=== PATIENT | male | born 1945 | race Caucasian/White ===

== ENCOUNTER 2020-08-20 | Day surgery (SDC) | payer MEDICARE, SELFPAY ==
[2020-08-14 14:54] VITALS: BMI 31.0
--- NOTE | 2020-08-17 10:29 | HO.ANESPROP2 ---
Documented by User: Rosio Alena 08/17/20 10:37 HPI - Anesthesia Eval Consult details Narrative: 75yo M for Upper Endoscopy and Colonoscopy Per caridiac clearance, mod to high risk but no prohibitive risk. Caution with anesthesia, hypotension, and fluid overload. Reviewed with Dr Lorne PULIDO Past Medical History Medical History Aortic stenosis CAD (coronary artery disease) Chronic fatigue DMII (diabetes mellitus, type 2) KOEHLER (dyspnea on exertion) Esophageal varices without bleeding GERD (gastroesophageal reflux disease) HTN (hypertension) IBS (irritable colon syndrome) Iron deficiency anemia On beta kayy at home ANUJA on CPAP Polyneuropathy Prostate cancer Spinal stenosis Family History Family History Father CVD (cardiovascular disease) Past heart attack Mother CVD (cardiovascular disease) Brain cancer Heart problem Daughter Breast cancer Sister Breast cancer Son Alive and well Family/Other Myocardial infarction Liver cancer Surgical History Surgical History History of heart artery stent History of surgery History of surgery History of transurethral resection of prostate Hx of colonoscopy Hx of esophagogastroduodenoscopy Social History Social History Smoking Status: Never smoker Meds Allergies Allergy/AdvReac Type Severity Reaction Status Date / Time lisinopril [From ZESTRIL] Allergy Severe UNABLE TO Verified 07/16/20 16:24 BREATH dextran 40 [DEXTRAN 40] Allergy Intermediate tachycardia Verified 07/16/20 16:24 latex [LATEX] Allergy Mild BLISTERS Verified 07/16/20 16:24 cyclobenzaprine Allergy Unknown Unknown Verified 07/16/20 16:24 [From Flexeril] egg Allergy Unknown unknown Verified 07/16/20 16:24 Iodinated Contrast Media Allergy Unknown UNKNOWN Verified 07/16/20 16:24 [CONTRAST,IV] pregabalin AdvReac Unknown hallucinati Verified 07/16/20 16:24 ons Zanaflex AdvReac Unknown hallucinati Uncoded 04/09/20 00:00 on Home Medications Medication Instructions Recorded Confirmed Type alprazolam 0.5 mg tablet 0.5 mg PO BID PRN 07/16/20 08/14/20 History atorvastatin 80 mg tablet 80 mg PO DAILY 07/16/20 08/14/20 History dulaglutide 0.75 mg/0.5 mL 1.5 mg SUBCUT QWEEK 07/16/20 08/14/20 History subcutaneous pen injector metformin 1,000 mg tablet 1,000 mg PO BID 07/16/20 08/14/20 History metoprolol tartrate 50 mg tablet 75 mg PO BID 07/16/20 08/14/20 History omeprazole 20 mg capsule,delayed 20 mg PO BID 07/16/20 08/14/20 History release sucralfate 1 gram tablet 1 g PO BID 07/16/20 08/14/20 History tamsulosin 0.4 mg capsule 0.4 mg PO DAILY 07/16/20 08/14/20 History torsemide 20 mg tablet 20 mg PO DAILY 07/16/20 08/14/20 History aspirin [Aspir-81] 81 mg PO DAILY 08/14/20 08/14/20 History cyanocobalamin (vitamin B-12) 1,000 mcg PO DAILY 08/14/20 08/14/20 History [Vitamin B-12] gemfibrozil 1 tab PO BID 08/14/20 08/14/20 History ranitidine HCl 150 mg PO BEDTIME 08/14/20 08/14/20 History Exam Exam Date and Time: August 17, 2020 1029 Height,Weight and Vital Signs: Height 5 ft 9 in Weight 95.254 kg Pertinent Lab Results Pertinent Lab Results: Laboratory Tests 04/05/20 05/28/20 12:02 14:02 WBC 3.8 L Hgb 10.7 L Hct 33.1 L Plt Count 92 L Sodium 143 Potassium 4.6 Chloride 109 H BUN 26 H Creatinine 0.97 Narrative Narrative: EKG 04/2020: NSR, 1st degree AV block, mild IVCD as well as increase voltage in the limb leads, poor RWP, LAD, no signficant ST-T wave changes ECHO 07/31/20: mild LVH, EF 60-65%, RV sys function is normal; AV is mod to severe calcified, mild AR, Severe aortic stenosis with peak/mean pressure gradient 67mmHg/ 44mmHg, MOUNIKA=0.9cm; compared with Echo from 04/2020 progressed. Assessment and Plan Assessment Anesthesia Assessment: Chart Reviewed Documented by User: Susanne Nixon 08/20/20 09:37 PMFSH Past Medical History Medical History Aortic stenosis CAD (coronary artery disease) Chronic fatigue DMII (diabetes mellitus, type 2) KOEHLER (dyspnea on exertion) Esophageal varices without bleeding GERD (gastroesophageal reflux disease) HTN (hypertension) IBS (irritable colon syndrome) Iron deficiency anemia On beta kayy at home ANUJA on CPAP Polyneuropathy Prostate cancer Spinal stenosis Family History Family History Father CVD (cardiovascular disease) Past heart attack Mother CVD (cardiovascular disease) Brain cancer Heart problem Daughter Breast cancer Sister Breast cancer Son Alive and well Family/Other Myocardial infarction Liver cancer Family history of problems with anesthesia: No Surgical History Surgical History History of heart artery stent History of surgery History of surgery History of transurethral resection of prostate Hx of colonoscopy Hx of esophagogastroduodenoscopy History of Problems with Anesthesia: No Social History Social History Smoking Status: Never smoker Meds Allergies Allergy/AdvReac Type Severity Reaction Status Date / Time lisinopril [From ZESTRIL] Allergy Severe UNABLE TO Verified 07/16/20 16:24 BREATH dextran 40 [DEXTRAN 40] Allergy Intermediate tachycardia Verified 07/16/20 16:24 latex [LATEX] Allergy Mild BLISTERS Verified 07/16/20 16:24 cyclobenzaprine Allergy Unknown Unknown Verified 07/16/20 16:24 [From Flexeril] egg Allergy Unknown unknown Verified 07/16/20 16:24 Iodinated Contrast Media Allergy Unknown UNKNOWN Verified 07/16/20 16:24 [CONTRAST,IV] pregabalin AdvReac Unknown hallucinati Verified 07/16/20 16:24 ons Zanaflex AdvReac Unknown hallucinati Uncoded 04/09/20 00:00 on Home Medications Medication Instructions Recorded Confirmed Type alprazolam 0.5 mg tablet 0.5 mg PO BID PRN 07/16/20 08/14/20 History atorvastatin 80 mg tablet 80 mg PO DAILY 07/16/20 08/14/20 History dulaglutide 0.75 mg/0.5 mL 1.5 mg SUBCUT QWEEK 07/16/20 08/14/20 History subcutaneous pen injector metformin 1,000 mg tablet 1,000 mg PO BID 07/16/20 08/14/20 History metoprolol tartrate 50 mg tablet 75 mg PO BID 07/16/20 08/14/20 History omeprazole 20 mg capsule,delayed 20 mg PO BID 07/16/20 08/14/20 History release sucralfate 1 gram tablet 1 g PO BID 07/16/20 08/14/20 History tamsulosin 0.4 mg capsule 0.4 mg PO DAILY 07/16/20 08/14/20 History torsemide 20 mg tablet 20 mg PO DAILY 07/16/20 08/14/20 History aspirin [Aspir-81] 81 mg PO DAILY 08/14/20 08/14/20 History cyanocobalamin (vitamin B-12) 1,000 mcg PO DAILY 08/14/20 08/14/20 History [Vitamin B-12] gemfibrozil 1 tab PO BID 08/14/20 08/14/20 History ranitidine HCl 150 mg PO BEDTIME 08/14/20 08/14/20 History Exam Height,Weight and Vital Signs: Vital Signs Temp Pulse Resp BP Pulse Ox 08/20/20 07:57 97.3 F 68 16 158/75 H 97 Lab Results 08/20/20 Range/Units 07:55 POC Glucose 98 (60-115) mg/dL Airway Mallampati Class: II TM Dist: >3cm Neck ROM: Full Heart: RRR+ Systolic murmur Lungs: Wheeze Right upper lung Assessment and Plan Assessment Anesthesia Assessment: Anesthesia Plan Discussed Final Anesthetic Review ASA Class: IV Final Preanesthetic Review: No Changes in Pt Med Stat, Meds/Allgs Chart Reviewed, Consent Obtained/Reviewed and Anes Risks/Benef Reviewed Patient Risk: High Procedure Risk: Low Anesthetic Plan Anesthetic Plan: MAC: Disposition: Extended PACU
[2020-08-20 07:57] VITALS: BP 158/75; PULSE 68; RESP 16; TEMP 36.3; O2SAT 97
[2020-08-20] MEDS: ceFAZolin Sodium/Dextrose,Iso 2 GM/50 ML PIGGYBACK IV (08:15)
[2020-08-20] MEDS: Lactated Ringers 1,000 ML 20 ML IVCONT (08:17)
[2020-08-20 08:26] LABS: Glucose, Whole Blood 98 mg/dL (60-115)
[2020-08-20] MEDS: Albuterol Sulfate (0.083%) 2.5 MG/3 ML VIAL.NEB INHALE (08:34)
--- NOTE | 2020-08-20 08:35 | MHC.SHP ---
Pre-Procedural Eval Section B Chief Complaint: HX POLYPS,ESPOHAGEAL VARICES Present Medications: see Short Stay Collaborative assessment Medical History: Significant History (Prostate cancer. Heart disease. type II diabetes. Hypertension. Spinal stenosis. HLD . Sleep apnea. Anemia. ) History of Previous Operations: Relevant previous surgery/procedure and date(s) (heart surgery gold seed insertion into prostate prostate biopsy RIAN spinal stenosis surgery 08/05/15 colonoscopy-[facility] ? 9 yrs ago EGD @[facility] [place] ) Allergies: Allergies Allergy/AdvReac Type Severity Reaction Status Date / Time lisinopril [From ZESTRIL] Allergy Severe UNABLE TO Verified 07/16/20 16:24 BREATH dextran 40 [DEXTRAN 40] Allergy Intermediate tachycardia Verified 07/16/20 16:24 latex [LATEX] Allergy Mild BLISTERS Verified 07/16/20 16:24 cyclobenzaprine Allergy Unknown Unknown Verified 07/16/20 16:24 [From Flexeril] egg Allergy Unknown unknown Verified 07/16/20 16:24 Iodinated Contrast Media Allergy Unknown UNKNOWN Verified 07/16/20 16:24 [CONTRAST,IV] pregabalin AdvReac Unknown hallucinati Verified 07/16/20 16:24 ons Zanaflex AdvReac Unknown hallucinati Uncoded 04/09/20 00:00 on Review of Systems Sugical H&P ROS: Negative: Constitution, Cardiovascular, Respiratory and Gastrointestinal Exam Surgical H&P Exam: Normal: HEENT, Normal: Extremities and Normal: Abdomen and Significant Findings: Lungs (scattered bilateral wheezing) Plan Diagnosis/Plan: Unchanged Patient has been examined and remains a candidate for the planned procedure
--- NOTE | 2020-08-20 08:35 | W.PM.OPN ---
Operative Note Operative Note Date of Service: 08/20/20 Narrative: Pre-op diagnosis: Colon cancer screening, hx of colon polyps, FU of esophageal varices Procedure: FLEXIBLE TRANSORAL UPPER GASTROINTESTINAL ENDOSCOPY WITH BIOPSIES AND BAND LIGATION AND COLONOSCOPY TILL CECUM WITH BIOPSIES AND POLYPECTOMY WITH A SNARE UPPER ENDOSCOPY Consent: Indications for the procedure and potential complications of bleeding, perforation, reaction to medications and missed diagnosis were discussed with the patient and informed consent was obtained. Instrument: Olympus GIF H 190 mid size upper endoscope Monitoring: Vital signs and clinical assessment, continuous EKG monitoring, Pulse oximetry, Carbon Dioxide monitoring and blood pressure monitoring were done throughout the procedure. Procedure: The patient was placed in the left lateral decubitis position and pre-procedure medications were administered and a bite block was placed. The endoscope was inserted into the mouth and advanced under direct vision to the third part of duodenum. A careful inspection was made as the upper endoscope was withdrawn including a retroflexed examination of the proximal stomach; Findings and interventions are described below. Findings: Larynx: Normal Esophagus: GE junction at 40 cms. Grade 2-3 four column varices from 25 to 40 cms - band ligation x 3 was performed with flattening of the varices. Stomach: Moderate portal gastropathy. A 2 cms nodule in the gastric antrum. Biopsies were obtained. No significant gastric varices and Grade 2 flap valve on retroflexed examination of the cardia. Duodenum: Normal bulb and descending duodenum. COLONOSCOPY PROCEDURE NOTE Consent: Indications for the procedure and potential complications of bleeding, perforation, reaction to medications and missed diagnosis were discussed with the patient and informed consent was obtained. Instrument: Olympus PCF H 190 L variable stiffness pediatric colonoscope Monitoring: Vital signs and clinical assessment, intermittent blood pressure monitoring, continuous EKG monitoring, Pulse oximetry and Carbon Dioxide monitoring were done throughout the procedure. Colon withdrawl time was 32 minutes. Procedure: The patient was placed in the left lateral decubitis position and pre-procedure medications were administered. After a digital rectal examination of the ano-rectum, the video colonoscope was inserted into the rectum and advanced through the colon to the cecum. The colonoscope was slowly withdrawn in a retrograde panoramic fashion and the colon mucosa was carefully examined including a retroflexed view of the rectum. Findings and interventions are described below. Procedure Difficulty: Without difficulty Findings: Terminal Ileum: Not evaluated Cecum: A 4-5 mm sessile polyp removed with a cold biopsy. A 2 cms flat polyp adjacent to the appendicular orifice raised with 5 cc of Orise solution and removed with a hot snare and placed in separate jar labelled cecal polyp # 2. Ascending Colon: Two 8-10 mm sessile polyps removed with a hot snare. A 2 cms sessile polyp in the distal AC removed with a hot snare. Transverse Colon: A 10-12 mm sessile polyp removed with a hot snare Descending Colon: Moderate diverticulosis Sigmoid Colon: Moderate diverticulosis Rectum: Normal Ano-rectum: Moderate internal hemorrhoids Colon preparation: Good after copious irrigation Impression and Post Procedure Diagnosis: Endoscopy Findings: ESOPHAGUS: Grade 2-3 four column varices from 25 to 40 cms - band ligation x 3 was performed with flattening of the varices. STOMACH: Moderate portal gastropathy. A 2 cms nodule in the gastric antrum. Biopsies were obtained. No significant gastric varices and Grade 2 flap valve on retroflexed examination of the cardia. 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 Iron deficiency anemia most likely related to slow GI blood loss from multiple large colon polyps and gastric polyps. Plan: Await pathology results Patient has an appointment on 09/03/20 in the GI [facility] with Arsenio Burns M.D.-. Repeat Colonoscopy interval based on path results - in 1-2 years if polyps are adenomatous. Above findings were reviewed with the patient. Surgeon: Arsenio Burns MD Anesthesia: MAC Estimated blood loss (mL): 0 Pathology: other (A. Gastric nodule, B. Cecal polyp x 1, C. Cecal Polyp # 2, D. AC polyps x 3, E. TC polyp x 1) Condition: stable Disposition: PACU
[2020-08-20 10:26] VITALS: BP 117/55; PULSE 66; RESP 15; TEMP 36.4; O2SAT 99
[2020-08-20 10:42] VITALS: BP 147/81; PULSE 60; RESP 20; O2SAT 94
--- NOTE | 2020-08-20 11:03 | HO.POSTANES ---
Post Anesthesia Evaluation Post Anesthesia Evaluation Vital Signs: Vital Signs Temp Pulse Resp BP Pulse Ox 08/20/20 10:42 60 20 147/81 H 94 08/20/20 10:26 97.6 F 66 15 117/55 L 99 08/20/20 07:57 97.3 F 68 16 158/75 H 97 Anesthesia: Monitored Mental Status: Awake Pain Control: Satisfactory Nausea/Vomiting: None Hydration: Adequate Anesthesia-Related Issues: No Anes. Related Issues
== END 2020-08-20 11:00 | disposition home or self-care (01) ==
LOC: HO.SSS 10-10 08:11
PROVIDERS: PCP Physician Assistant; Visit Provider Internal Medicine Gastroenterology
PROC: (CPT 45385; principal; 2020-08-20 08:30)
DX: Z12.11 Encounter for screening for malignant neoplasm of colon (principal); Z86.010 Personal history of colon polyps; D12.0 Benign neoplasm of cecum; D12.2 Benign neoplasm of ascending colon; D12.3 Benign neoplasm of transverse colon; K57.30 Diverticulosis of large intestine without perforation or abscess without bleeding; K64.8 Other hemorrhoids; K31.7 Polyp of stomach and duodenum; I85.10 Secondary esophageal varices without bleeding; K76.6 Portal hypertension; K31.89 Other diseases of stomach and duodenum; K21.9 Gastro-esophageal reflux disease without esophagitis; E11.21 Type 2 diabetes mellitus with diabetic nephropathy; E11.42 Type 2 diabetes mellitus with diabetic 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; Z79.4 Long term (current) use of insulin; I10 Essential (primary) hypertension; G47.33 Obstructive sleep apnea (adult) (pediatric); D50.9 Iron deficiency anemia, unspecified; Z85.46 Personal history of malignant neoplasm of prostate; Z79.82 Long term (current) use of aspirin; Z79.899 Other long term (current) drug therapy; Z88.8 Allergy status to other drugs, medicaments and biological substances; Z91.040 Latex allergy status
CPT/HCPCS: 45385; 45380; 45381; 43244; 43239; 82947; 88305; 88342; J0690; J1100; J2370; J2405

== ENCOUNTER → 2020-08-27 13:14 | Outpatient (BNV) | payer MEDICARE, SELFPAY | PROVIDERS: PCP Physician Assistant; Visit Provider Internal Medicine | DX: D50.9 Iron deficiency anemia, unspecified (principal); D51.9 Vitamin B12 deficiency anemia, unspecified; N17.9 Acute kidney failure, unspecified | CPT/HCPCS: 99213; 99214; G2211 ==

== ENCOUNTER 2020-08-28 10:19 | Outpatient (REF) | payer MEDICARE, SELFPAY ==
[2020-08-28 11:40] LABS: Basophils Percent Auto 0.7 % (0-2); Eosinophils Absolute Auto 0.2 X10*3/uL (0.0-0.4); Hematocrit 33.5 % (42-52); Hemoglobin 10.6 g/dl (14.0-18.0); Imm Gran Abs Auto 0.02 X10*3/uL (0.00-0.03); Imm Gran Pct Auto 0.4 % (0.0-0.4); Lymphocytes Absolute Auto 0.5 X10*3/uL (1.2-4.9); MANUAL DIFF FLAG SCAN; Mean Corpuscular HGB Conc 31.6 g/dl (31.0-36.0); Mean Corpuscular Hemoglobin 30.3 pg (27.0-33.0); Mean Corpuscular Volume 95.7 fL (80-98); Mean Platelet Volume 11.8 fL (9.4-12.4); Monocytes Absolute Auto 0.5 X10*3/uL (0.1-1.2); Monocytes Percent Auto 11.7 % (2-11); Neutrophils Absolute Auto 3.2 X10*3/uL (2.0-8.3); Neutrophils Percent Auto 72.2 % (45-73); Platelet Count 102 X10*3/uL (160-400); Red Cell Distribution Width 14.5 % (11.0-16.0); SCAN SMEAR FLAG 1; White Blood Count 4.5 X10*3/uL (4.8-10.8)
[2020-08-28 11:54] LABS: Estimated Average Glucose 154 mg/dL; Hemoglobin A1C 151.4069 umol/L
[2020-08-28 12:14] LABS: Iron 49 mcg/dL (45-160); Percent Iron Saturation 11 % (15-50); Total Iron Binding Capacity 457 mcg/dL (228-428); Unsaturated Iron Binding 408 ug/dL
[2020-08-28 12:18] LABS: Alanine Aminotransferase 31 U/L (0-40); Albumin Level 4.1 g/dL (3.5-5.0); Alkaline Phosphatase 109 U/L (39-117); Anion Gap 14 (12-20); Aspartate Amino Transferase 49 U/L (5-37); Bilirubin Total 0.8 mg/dL (0.0-1.0); Blood Urea Nitrogen 23 mg/dL (9-16); Calcium 8.5 mg/dL (8.4-10.2); Carbon Dioxide 27 mmol/L (22-29); Chloride 104 mmol/L (96-108); Cholesterol 141 mg/dL; Estimated Glomerular Filt Rate > 60; Glucose Random 152 mg/dL (60-115); HDL Cholesterol 35 mg/dL; LDL Cholesterol Calculated 74 mg/dl; Potassium 4.3 mmol/l (3.3-5.1); Sodium 141 mmol/L (135-145); Total Protein 7.2 g/dL (6.5-8.0); Triglycerides 161 mg/dL
[2020-08-28 13:09] LABS: SLIDE REVIEW VERIFIED
[2020-08-28 14:41] LABS: TSH reflex Free T4 2.48 mIU/mL (0.32-4.0)
== END 2020-08-28 10:20 | disposition home or self-care (01) ==
LOC: HO.LAB 10:19
PROVIDERS: Internal Medicine; Absent Provider Internal Medicine Cardiovascular Disease; PCP Physician Assistant; Visit Provider Physician Assistant
DX: E11.65 Type 2 diabetes mellitus with hyperglycemia (principal); R06.09 Other forms of dyspnea; E11.42 Type 2 diabetes mellitus with diabetic 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; E11.21 Type 2 diabetes mellitus with diabetic nephropathy; E78.5 Hyperlipidemia, unspecified; I10 Essential (primary) hypertension; Z79.4 Long term (current) use of insulin
CPT/HCPCS: 36415; 80053; 80061; 82947; 83036; 83540; 84443; 85025; 99212

== ENCOUNTER 2020-08-31 13:08 | Outpatient (REF) | payer MEDICARE, SELFPAY | END 2020-08-31 13:09 | disposition home or self-care (01) | LOC: HO.MDS 13:08 | PROVIDERS: PCP Physician Assistant; Visit Provider Internal Medicine | DX: D50.9 Iron deficiency anemia, unspecified (principal) | CPT/HCPCS: 96365; J2916 ==

== ENCOUNTER → 2020-09-03 11:50 | Outpatient (BNVA) | payer MEDICARE, SELFPAY | PROVIDERS: PCP Physician Assistant; Visit Provider Internal Medicine Gastroenterology | DX: Z13.89 Encounter for screening for other disorder (principal) | CPT/HCPCS: Q3014 ==

== ENCOUNTER 2020-09-04 | Outpatient (REF) | payer MEDICARE, SELFPAY | END 2020-09-04 00:01 | disposition home or self-care (01) | LOC: HO.MDS | PROVIDERS: PCP Physician Assistant; Visit Provider Internal Medicine | DX: D50.9 Iron deficiency anemia, unspecified (principal) | CPT/HCPCS: 96365; J2916 ==

== ENCOUNTER 2020-09-04 12:56 | Outpatient (REF) | payer MEDICARE, SELFPAY | END 2020-09-04 12:57 | disposition home or self-care (01) | LOC: HO.MDS 12:56 | PROVIDERS: PCP Physician Assistant; Visit Provider Internal Medicine | DX: D50.9 Iron deficiency anemia, unspecified (principal) | CPT/HCPCS: 96365 ==

== ENCOUNTER 2020-09-11 12:49 | Outpatient (REF) | payer MEDICARE, SELFPAY | END 2020-09-11 12:50 | disposition home or self-care (01) | LOC: HO.MDS 12:49 | PROVIDERS: PCP Physician Assistant; Visit Provider Internal Medicine | DX: D50.9 Iron deficiency anemia, unspecified (principal) | CPT/HCPCS: 96365; J2916 ==

== ENCOUNTER 2020-09-19 13:21 | Outpatient (REF) | payer MEDICARE, SELFPAY ==
--- NOTE | 2020-09-19 13:25 | US_ITS ---
EXAMINATION: US ABDOMEN LIMITED CLINICAL INFORMATION: Unspecified cirrhosis of liver. COMPARISON: [facility] 03/14/2020. MRI abdomen 01/12/2020. Ultrasound abdomen complete 12/27/2019 and 05/09/2019. CT abdomen and pelvis 05/20/2017. TECHNIQUE: Real-time imaging of the right upper quadrant abdominal viscera. FINDINGS: PANCREAS: The head and the body of the pancreas is homogeneous in echotexture. The tail is not well visualized. LIVER: The liver is diffusely heterogeneous. Previously ultrasound seen hypoechoic lesion left lobe is not visualized at this time. It is not visualized on the previous MRI abdomen either. No focal hepatic lesion. There is no intrahepatic biliary duct dilatation seen. GALLBLADDER: Gallbladder wall measures 0.6 cm The gallbladder is physiologically distended. Multiple echogenic shadowing mobile gallstones are present. No evidence of gallbladder wall thickening or pericholecystic fluid. COMMON BILE DUCT: Normal in caliber measuring 0.4 cm in diameter. RIGHT KIDNEY: There is an echogenic foci upper pole measuring 0.7 x 0.6 x 0.6 cm, question small AML. Small cysts in the upper pole right kidney is not visualized at this time. No hydronephrosis. No renal calculi or focal parenchymal lesions. The kidney measures 12.9 cm in maximum dimension. FREE FLUID: None. US/US abdomen limited IMPRESSION: 1. Cholelithiasis without wall thickening. 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 3. Diffuse hepatic steatosis without any focal lesion seen. Previously visualized left hepatic lobe lesion was not seen on the previous MRI or today's exam.
== END 2020-09-19 13:22 | disposition home or self-care (01) ==
LOC: HO.US 13:21
PROVIDERS: Visit Provider Internal Medicine Gastroenterology
DX: Z13.89 Encounter for screening for other disorder (principal)
CPT/HCPCS: 76705

== ENCOUNTER 2020-09-19 14:30 | Outpatient (REF) | payer MEDICARE, SELFPAY | END 2020-09-19 14:31 | disposition home or self-care (01) | LOC: HO.MDS 14:30 | PROVIDERS: PCP Physician Assistant; Visit Provider Internal Medicine | DX: D50.9 Iron deficiency anemia, unspecified (principal) | CPT/HCPCS: 76705; 96365 ==

== ENCOUNTER 2020-09-26 12:33 | Outpatient (REF) | payer MEDICARE, SELFPAY ==
[2020-09-26 16:17] LABS: Prostate Specific Antigen < 0.05 ng/mL (<0.05-4.0)
== END 2020-09-26 12:34 | disposition home or self-care (01) ==
LOC: HO.LAB 12:33
PROVIDERS: PCP Physician Assistant; Visit Provider Urology
DX: Z13.89 Encounter for screening for other disorder (principal)
CPT/HCPCS: 36415; 84153

== ENCOUNTER 2020-09-26 12:59 | Outpatient (REF) | payer MEDICARE, SELFPAY | END 2020-09-26 13:00 | disposition home or self-care (01) | LOC: HO.MDS 12:59 | PROVIDERS: PCP Physician Assistant; Visit Provider Internal Medicine | DX: D50.9 Iron deficiency anemia, unspecified (principal) | CPT/HCPCS: 36415; 84153; 96365; J2916 ==

== ENCOUNTER 2020-10-03 12:52 | Outpatient (REF) | payer MEDICARE, SELFPAY | END 2020-10-03 12:53 | disposition home or self-care (01) | LOC: HO.MDS 12:52 | PROVIDERS: PCP Physician Assistant; Visit Provider Internal Medicine | DX: D50.9 Iron deficiency anemia, unspecified (principal) | CPT/HCPCS: 96365; J2916 ==

== ENCOUNTER 2020-10-10 12:50 | Outpatient (REF) | payer MEDICARE, SELFPAY | END 2020-10-10 12:51 | disposition home or self-care (01) | LOC: HO.MDS 12:50 | PROVIDERS: PCP Physician Assistant; Visit Provider Internal Medicine | DX: D50.9 Iron deficiency anemia, unspecified (principal) | CPT/HCPCS: 96365; J2916 ==

== ENCOUNTER 2020-10-17 | Outpatient (REF) | payer MEDICARE, SELFPAY | END 2020-10-17 00:01 | disposition home or self-care (01) | LOC: HO.VC | PROVIDERS: Visit Provider Internal Medicine | DX: Z23 Encounter for immunization (principal) | CPT/HCPCS: 0011A ==

== ENCOUNTER 2020-10-18 13:01 | Outpatient (REF) | payer MEDICARE, SELFPAY | END 2020-10-18 13:02 | disposition home or self-care (01) | LOC: HO.MDS 13:01 | PROVIDERS: PCP Physician Assistant; Visit Provider Internal Medicine | DX: D50.9 Iron deficiency anemia, unspecified (principal) | CPT/HCPCS: 96365; J2916 ==

== ENCOUNTER 2020-10-24 12:58 | Outpatient (REF) | payer MEDICARE, SELFPAY | END 2020-10-24 12:59 | disposition home or self-care (01) | LOC: HO.MDS 12:58 | PROVIDERS: PCP Physician Assistant; Visit Provider Internal Medicine | DX: D50.9 Iron deficiency anemia, unspecified (principal) | CPT/HCPCS: 96365; J2916 ==

== ENCOUNTER 2020-11-14 | Outpatient (REF) | payer MEDICARE, SELFPAY | END 2020-11-14 00:01 | disposition home or self-care (01) | LOC: HO.VC | PROVIDERS: Visit Provider Internal Medicine | DX: Z23 Encounter for immunization (principal) | CPT/HCPCS: 0012A ==

== ENCOUNTER → 2020-12-26 12:48 | Outpatient (BNVA) | payer MEDICARE, SELFPAY | PROVIDERS: PCP Physician Assistant; Visit Provider Internal Medicine Endocrinology, Diabetes & Metabolism | DX: E11.65 Type 2 diabetes mellitus with hyperglycemia (principal); E11.42 Type 2 diabetes mellitus with diabetic 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; E11.21 Type 2 diabetes mellitus with diabetic nephropathy; Z79.4 Long term (current) use of insulin; E78.5 Hyperlipidemia, unspecified; I10 Essential (primary) hypertension | CPT/HCPCS: 82947; 99212 ==

== ENCOUNTER → 2021-01-21 14:36 | Outpatient (BNVA) | payer MEDICARE, SELFPAY | PROVIDERS: Referring Provider Urology; Visit Provider Internal Medicine Gastroenterology | DX: K74.60 Unspecified cirrhosis of liver (principal); E53.8 Deficiency of other specified B group vitamins; K31.7 Polyp of stomach and duodenum; I85.10 Secondary esophageal varices without bleeding; K76.6 Portal hypertension; K31.89 Other diseases of stomach and duodenum; D36.9 Benign neoplasm, unspecified site; K57.90 Diverticulosis of intestine, part unspecified, without perforation or abscess without bleeding; K64.8 Other hemorrhoids; K62.7 Radiation proctitis; K21.9 Gastro-esophageal reflux disease without esophagitis; Z79.899 Other long term (current) drug therapy | CPT/HCPCS: 99212 ==

== ENCOUNTER 2021-01-25 10:35 | Outpatient (REF) | payer MEDICARE, SELFPAY ==
[2021-01-25 12:17] LABS: Hematocrit 31.6 % (42-52); Mean Corpuscular HGB Conc 31.6 g/dl (31.0-36.0); Mean Corpuscular Hemoglobin 30.7 pg (27.0-33.0); Mean Corpuscular Volume 96.9 fL (80-98); Mean Platelet Volume 11.9 fL (9.4-12.4); Red Blood Count 3.26 X10*6/uL (4.60-5.80); Red Cell Distribution Width 15.4 % (11.0-16.0); White Blood Count 3.5 X10*3/uL (4.8-10.8)
[2021-01-25 12:21] LABS: Platelet Count 90 X10*3/uL (160-400)
[2021-01-25 12:22] LABS: INTERNATIONAL NORM RATIO 1.2 (0.9-1.1); Prothrombin Time 13.7 SEC (10.8-13.0)
[2021-01-25 12:46] LABS: Estimated Average Glucose 154 mg/dL; Hemoglobin A1C 140.2528 umol/L
[2021-01-25 12:49] LABS: Alanine Aminotransferase 32 U/L (0-40); Albumin Level 3.9 g/dL (3.5-5.0); Alkaline Phosphatase 148 U/L (39-117); Anion Gap 15 (12-20); Aspartate Amino Transferase 35 U/L (5-37); Bilirubin Total 0.9 mg/dL (0.0-1.0); Blood Urea Nitrogen 25 mg/dL (9-16); Calcium 8.9 mg/dL (8.4-10.2); Carbon Dioxide 27 mmol/L (22-29); Chloride 104 mmol/L (96-108); Cholesterol 152 mg/dL; Estimated Glomerular Filt Rate > 60; Glucose Random 140 mg/dL (60-115); HDL Cholesterol 41 mg/dL; LDL Cholesterol Calculated 71 mg/dl; Potassium 4.1 mmol/L (3.3-5.1); Sodium 142 mmol/L (135-145); Total Protein 6.9 g/dL (6.5-8.0); Triglycerides 203 mg/dL
[2021-01-25 13:09] LABS: Vitamin B12 727 pg/mL (200-900)
[2021-01-25 13:20] LABS: Creatinine Urine 58.58 mg/dL; Microalbum/Creatinine Ratio Ur 25.6 ug/mg cr
[2021-01-26 16:57] LABS: LDL Cholesterol Direct 65 mg/dL (<100)
== END 2021-01-25 10:36 | disposition home or self-care (01) ==
LOC: HO.LAB 10:35
PROVIDERS: Internal Medicine Gastroenterology; Absent Provider Internal Medicine Endocrinology, Diabetes & Metabolism; PCP Physician Assistant; Visit Provider Internal Medicine Cardiovascular Disease
DX: R06.09 Other forms of dyspnea (principal); E11.65 Type 2 diabetes mellitus with hyperglycemia; K74.60 Unspecified cirrhosis of liver
CPT/HCPCS: 36415; 80053; 80061; 82043; 82607; 83036; 83721; 85027; 85610

== ENCOUNTER 2021-02-04 06:24 | Day surgery (SDC) | payer MEDICARE, SELFPAY ==
[2021-01-28 14:58] VITALS: BMI 31.4
--- NOTE | 2021-01-31 08:39 | MHC.SHP ---
Pre-Procedural Eval Section A The patient is an INPATIENT: No The History & Physical has been completed within 30 days and I have reviewed it.: Yes Section B Chief Complaint: Cataract Left Eye Allergies: Allergies Allergy/AdvReac Type Severity Reaction Status Date / Time lisinopril [From ZESTRIL] Allergy Severe UNABLE TO Verified 01/30/21 14:52 BREATH dextran 40 [DEXTRAN 40] Allergy Intermediate tachycardia Verified 01/30/21 14:52 latex [LATEX] Allergy Mild BLISTERS Verified 01/30/21 14:52 cyclobenzaprine Allergy Unknown Unknown Verified 01/30/21 14:52 [From Flexeril] egg Allergy Unknown unknown Verified 01/30/21 14:52 Iodinated Contrast Media Allergy Unknown UNKNOWN Verified 01/30/21 14:52 [CONTRAST,IV] tizanidine [From Zanaflex] Allergy Unknown Hallucinati Verified 01/30/21 14:52 ons pregabalin AdvReac Unknown hallucinati Verified 01/30/21 14:52 ons Plan Diagnosis/Plan: Unchanged I have reviewed the history and physical and performed a pertinent physical examination on my patient. No changes have occurred unless specified.
--- NOTE | 2021-02-01 09:16 | HO.ANESPROP2 ---
Documented by User: Rosio Alena 02/01/21 09:18 HPI - Anesthesia Eval Consult details Narrative: 75yo M for Left Cataract Extraction IOL Insertion PCP cleared No prev cataract on record [facility] Active Problems Active Problems: All Active Problems (Updated 01/30/21 @ 15:08 by Roberto Carlos Cisneros PA-C) BPH (benign prostatic hyperplasia) (Acute) Cataract (Acute) Pre-op evaluation (Acute) Need for pneumococcal vaccination (Acute) Esophageal varices in cirrhosis (Acute) Portal hypertensive gastropathy (Acute) Adenomatous polyps (Acute) Diverticulosis (Acute) Internal hemorrhoids (Acute) Radiation proctitis (Acute) Anemia (Chronic) Multiple gastric polyps (Acute) Vitamin B12 deficiency (Acute) Cirrhosis of liver without ascites (Acute) CAD (coronary artery disease) (Acute) Hypertension (Acute) Dyslipidemia (Acute) Diabetic nephropathy associated with type 2 diabetes mellitus (Acute) Diabetic 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 associated with type 2 diabetes mellitus (Acute) 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 (Acute) Diabetes type 2, uncontrolled (Acute) GERD (gastroesophageal reflux disease) (Acute) Past Medical History Medical History Aortic stenosis CAD (coronary artery disease) Chronic fatigue COVID-19 vaccine series completed Diabetes type 2, uncontrolled Diabetic nephropathy associated with type 2 diabetes mellitus Diabetic 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 associated with type 2 diabetes mellitus DMII (diabetes mellitus, type 2) KOEHLER (dyspnea on exertion) Dyslipidemia Esophageal varices without bleeding GERD (gastroesophageal reflux disease) HTN (hypertension) Hypertension IBS (irritable colon syndrome) 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 kayy at home ANUJA on CPAP Polyneuropathy Prostate cancer Spinal stenosis Varices of esophagus determined by endoscopy Family History Family History Father CVD (cardiovascular disease) Past heart attack Mother CVD (cardiovascular disease) Brain cancer Heart problem Daughter Breast cancer Sister Breast cancer Son Alive and well Family/Other Myocardial infarction Liver cancer Family history of problems with anesthesia: No Surgical History Surgical History History of colonoscopy History of heart artery stent History of surgery History of surgery History of transurethral resection of prostate Hx of colonoscopy Hx of endoscopy Hx of esophagogastroduodenoscopy History of Problems with Anesthesia: No Social History Social History Household Members: Spouse Are you a primary career technical education teacher to a significant other at home: No Do you presently have visiting nurse or other home services: No Alcohol intake: never Smoking Status: Never smoker Use of substances other than those prescribed or required for medical reasons: No Have you been hit, kicked, punched, or otherwise hurt by someone within the past year? If so, by whom?: No Are you DNR?: No Advance Directives: No Advance Directives Information Provided: No Advance Directives on File: No Recently lost weight without trying: No Eating poorly because of decreased appetite: No Nutrition Risks: No Nutritional Risk Meds Allergies Allergy/AdvReac Type Severity Reaction Status Date / Time lisinopril [From ZESTRIL] Allergy Severe UNABLE TO Verified 01/30/21 14:52 BREATH dextran 40 [DEXTRAN 40] Allergy Intermediate tachycardia Verified 01/30/21 14:52 latex [LATEX] Allergy Mild BLISTERS Verified 01/30/21 14:52 cyclobenzaprine Allergy Unknown Unknown Verified 01/30/21 14:52 [From Flexeril] egg Allergy Unknown unknown Verified 01/30/21 14:52 Iodinated Contrast Media Allergy Unknown UNKNOWN Verified 01/30/21 14:52 [CONTRAST,IV] tizanidine [From Zanaflex] Allergy Unknown Hallucinati Verified 01/30/21 14:52 ons pregabalin AdvReac Unknown hallucinati Verified 01/30/21 14:52 ons Home Medications Medication Instructions Recorded Confirmed Last Taken Type metoprolol tartrate 50 mg tablet 75 mg PO BID 07/16/20 01/30/21 02/04/21 History torsemide 20 mg tablet 20 mg PO DAILY 07/16/20 01/30/21 Unknown History aspirin 81 mg PO DAILY 08/14/20 01/30/21 Unknown History cyanocobalamin (vitamin B-12) 1,000 mcg PO DAILY 08/14/20 01/30/21 Unknown History ferrous sulfate 325 mg (65 mg 325 mg PO BID 10/17/20 01/30/21 Unknown History iron) tablet folic acid 1 mg tablet 1 mg PO DAILY 10/17/20 01/30/21 Unknown History Exam Exam Date and Time: February 01, 2021 0916 Height,Weight and Vital Signs: Height 5 ft 9 in Weight 96.615 kg Assessment and Plan Assessment Anesthesia Assessment: Chart Reviewed Documented by User: Katy Lugo 02/04/21 07:50 [facility] Past Medical History Medical History Aortic stenosis CAD (coronary artery disease) Chronic fatigue COVID-19 vaccine series completed Diabetes type 2, uncontrolled Diabetic nephropathy associated with type 2 diabetes mellitus Diabetic 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 associated with type 2 diabetes mellitus DMII (diabetes mellitus, type 2) KOEHLER (dyspnea on exertion) Dyslipidemia Esophageal varices without bleeding GERD (gastroesophageal reflux disease) HTN (hypertension) Hypertension IBS (irritable colon syndrome) 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 kayy at home ANUJA on CPAP Polyneuropathy Prostate cancer Spinal stenosis Varices of esophagus determined by endoscopy Family History Family History Father CVD (cardiovascular disease) Past heart attack Mother CVD (cardiovascular disease) Brain cancer Heart problem Daughter Breast cancer Sister Breast cancer Son Alive and well Family/Other Myocardial infarction Liver cancer Surgical History Surgical History History of colonoscopy History of heart artery stent History of surgery History of surgery History of transurethral resection of prostate Hx of colonoscopy Hx of endoscopy Hx of esophagogastroduodenoscopy Social History Social History Household Members: Spouse Are you a primary career technical education teacher to a significant other at home: No Do you presently have visiting nurse or other home services: No Alcohol intake: never Smoking Status: Never smoker Use of substances other than those prescribed or required for medical reasons: No Have you been hit, kicked, punched, or otherwise hurt by someone within the past year? If so, by whom?: No Are you DNR?: No Advance Directives: No Advance Directives Information Provided: No Advance Directives on File: No Recently lost weight without trying: No Eating poorly because of decreased appetite: No Nutrition Risks: No Nutritional Risk Meds Allergies Allergy/AdvReac Type Severity Reaction Status Date / Time lisinopril [From ZESTRIL] Allergy Severe UNABLE TO Verified 01/30/21 14:52 BREATH dextran 40 [DEXTRAN 40] Allergy Intermediate tachycardia Verified 01/30/21 14:52 latex [LATEX] Allergy Mild BLISTERS Verified 01/30/21 14:52 cyclobenzaprine Allergy Unknown Unknown Verified 01/30/21 14:52 [From Flexeril] egg Allergy Unknown unknown Verified 01/30/21 14:52 Iodinated Contrast Media Allergy Unknown UNKNOWN Verified 01/30/21 14:52 [CONTRAST,IV] tizanidine [From Zanaflex] Allergy Unknown Hallucinati Verified 01/30/21 14:52 ons pregabalin AdvReac Unknown hallucinati Verified 01/30/21 14:52 ons Home Medications Medication Instructions Recorded Confirmed Last Taken Type metoprolol tartrate 50 mg tablet 75 mg PO BID 07/16/20 01/30/21 02/04/21 History torsemide 20 mg tablet 20 mg PO DAILY 07/16/20 01/30/21 Unknown History aspirin 81 mg PO DAILY 08/14/20 01/30/21 Unknown History cyanocobalamin (vitamin B-12) 1,000 mcg PO DAILY 08/14/20 01/30/21 Unknown History ferrous sulfate 325 mg (65 mg 325 mg PO BID 10/17/20 01/30/21 Unknown History iron) tablet folic acid 1 mg tablet 1 mg PO DAILY 10/17/20 01/30/21 Unknown History Exam Airway Mallampati Class: III TM Dist: >3cm Neck ROM: Full Loose/Missing/Broken Teeth: No Heart: RRR Lungs: CTA Assessment and Plan Assessment Anesthesia Assessment: Anesthesia Plan Discussed and Chart Reviewed Final Anesthetic Review NPO: Yes ASA Class: III Final Preanesthetic Review: Meds/Allgs Chart Reviewed, Consent Obtained/Reviewed and Anes Risks/Benef Reviewed Patient Risk: Intermediate Procedure Risk: Low Anesthetic Plan Anesthetic Plan: MAC: Disposition: Standard PACU
[2021-02-04 07:13] VITALS: BP 139/56; PULSE 66; RESP 18; TEMP 36.7; O2SAT 96
[2021-02-04] MEDS: Tetracaine HCl/PF 0.5% Oph Sol 4 ML DROPS 1 DROP EYE-LEFT (07:17)
[2021-02-04 07:23] LABS: Glucose, Whole Blood 185 mg/dL (60-115)
[2021-02-04] MEDS: Tropicamide 1 % Ophth Sol 3 ML BTL 1 DROP EYE-LEFT ×3 (07:27→07:34)
[2021-02-04] MEDS: Phenylephrine HCL 2.5% Oph SoL 2 ML BOTTLE 1 DROP EYE-LEFT ×3 (07:29→07:36)
[2021-02-04] MEDS: Lactated Ringers 500 ML 50 ML IV (07:29)
--- NOTE | 2021-02-04 08:18 | HO.PNOPHT ---
Ophthalmology Procedure Procedure Date of Service: 02/04/21 Ophthalmology Viscoelastic: Healon Duet Dual Pack Pro Ophthalmology Lenses: TECNIS [id number] (13.5) Procedure Notes: PREOPERATIVE DIAGNOSIS: Decreased visual acuity left eye secondary to cataract POSTOPERATIVE DIAGNOSIS: Same PROCEDURE: Left cataract extraction with intraocular lens insertion SURGEON: Rg Bennett M.D. ANESTHESIA: Topical/MAC ESTIMATED BLOOD LOSS: None COMPLICATIONS: None After obtaining informed consent, the patient was brought to the operation room suite and placed in the supine position. After adequate sedation per anesthesia, topical drops of Tetracaine were given to the left eye. The eye was then prepped and draped in the usual sterile fashion. The operating room microscope was then positioned over the operative eye and a lid speculum placed. A paracentesis was created. Viscoelastic was then instilled into the anterior chamber. A three plane incision was then created temporally, utilizing a 2.85 mm keratome. Capsulotomy forceps were then utilized to create a circular tear capsulotomy. Hydrodissection and hydrodelineation were carried out until adequate mobilization of the nucleus occurred. Phacoemulsification was then utilized to remove the dense central nucleus followed by removal of the cortical material utilizing the automated aspiration irrigation unit. Viscoat elastic was instilled into the posterior capsular bag followed by placement of a posterior chamber intraocular lens without difficulty. The residual Viscoat elastic was then removed utilizing the automated IA machine. The wound was check and found to be watertight. The patient tolerated the procedure well and the lid speculum was removed. Intracameral injection of Vigamox 0.1 mL followed by a subtenon injection of Kenalog-40 0.2 mL were administered. The patient will be seen in the a.m.
[2021-02-04 08:41] VITALS: BP 141/63; PULSE 72; RESP 16; TEMP 36.6; O2SAT 96
== END 2021-02-04 08:53 | disposition home or self-care (01) ==
PROVIDERS: PCP Physician Assistant; Visit Provider Ophthalmology
PROC: (CPT 66985; principal; 2021-02-04 08:20)
DX: H25.12 Age-related nuclear cataract, left eye (principal); H52.4 Presbyopia; D50.9 Iron deficiency anemia, unspecified; I10 Essential (primary) hypertension; G47.33 Obstructive sleep apnea (adult) (pediatric); E11.21 Type 2 diabetes mellitus with diabetic nephropathy; E11.42 Type 2 diabetes mellitus with diabetic 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; Z79.4 Long term (current) use of insulin; Z79.899 Other long term (current) drug therapy; Z88.8 Allergy status to other drugs, medicaments and biological substances; Z85.46 Personal history of malignant neoplasm of prostate; Z91.041 Radiographic dye allergy status; Z91.040 Latex allergy status
CPT/HCPCS: 66984; 82947; J2250; J3010; J3300; V2632

== ENCOUNTER 2021-02-18 08:09 | Day surgery (SDC) | payer MEDICARE, SELFPAY ==
[2021-01-28 15:08] VITALS: BMI 31.4
--- NOTE | 2021-02-13 15:44 | MHC.SHP ---
Pre-Procedural Eval Section A The patient is an INPATIENT: No The History & Physical has been completed within 30 days and I have reviewed it.: Yes Section B Chief Complaint: Left Eye Cataract Allergies: Allergies Allergy/AdvReac Type Severity Reaction Status Date / Time lisinopril [From ZESTRIL] Allergy Severe UNABLE TO Verified 01/30/21 14:52 BREATH dextran 40 [DEXTRAN 40] Allergy Intermediate tachycardia Verified 01/30/21 14:52 latex [LATEX] Allergy Mild BLISTERS Verified 01/30/21 14:52 cyclobenzaprine Allergy Unknown Unknown Verified 01/30/21 14:52 [From Flexeril] egg Allergy Unknown unknown Verified 01/30/21 14:52 Iodinated Contrast Media Allergy Unknown UNKNOWN Verified 01/30/21 14:52 [CONTRAST,IV] tizanidine [From Zanaflex] Allergy Unknown Hallucinati Verified 01/30/21 14:52 ons pregabalin AdvReac Unknown hallucinati Verified 01/30/21 14:52 ons Plan Diagnosis/Plan: Unchanged I have reviewed the history and physical and performed a pertinent physical examination on my patient. No changes have occurred unless specified.
--- NOTE | 2021-02-15 09:44 | HO.ANESPROP2 ---
Documented by User: Rosio Carvajal 02/15/21 09:47 HPI - Anesthesia Eval Consult details Narrative: 75yo M for Right Cataract Extraction IOL Insertion PCP Cleared Left eye 02/04: Fent 25, Midaz 1 PMFSH Active Problems Active Problems: All Active Problems (Updated 01/30/21 @ 15:08 by Roberto Carlos Cisneros PA-C) Need for pneumococcal vaccination (Acute) Esophageal varices in cirrhosis (Acute) Portal hypertensive gastropathy (Acute) Adenomatous polyps (Acute) Diverticulosis (Acute) Internal hemorrhoids (Acute) Radiation proctitis (Acute) Anemia (Chronic) Multiple gastric polyps (Acute) Vitamin B12 deficiency (Acute) Cirrhosis of liver without ascites (Acute) Pre-op evaluation (Acute) Cataract (Acute) BPH (benign prostatic hyperplasia) (Acute) CAD (coronary artery disease) (Acute) Hypertension (Acute) Dyslipidemia (Acute) Diabetic nephropathy associated with type 2 diabetes mellitus (Acute) Diabetic 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 associated with type 2 diabetes mellitus (Acute) [facility] (current) use of insulin (Acute) Diabetes type 2, uncontrolled (Acute) GERD (gastroesophageal reflux disease) (Acute) Past Medical History Medical History Aortic stenosis CAD (coronary artery disease) Chronic fatigue COVID-19 vaccine series completed Diabetes type 2, uncontrolled Diabetic nephropathy associated with type 2 diabetes mellitus Diabetic 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 associated with type 2 diabetes mellitus DMII (diabetes mellitus, type 2) KOEHLER (dyspnea on exertion) Dyslipidemia Esophageal varices without bleeding GERD (gastroesophageal reflux disease) HTN (hypertension) Hypertension IBS (irritable colon syndrome) Iron deficiency anemia [facility] (current) use of insulin On beta kayy at home ANUJA on CPAP Polyneuropathy Prostate cancer Spinal stenosis Varices of esophagus determined by endoscopy Family History Family History Father CVD (cardiovascular disease) Past heart attack Mother CVD (cardiovascular disease) Brain cancer Heart problem Daughter Breast cancer Sister Breast cancer Son Alive and well Family/Other Myocardial infarction Liver cancer Family history of problems with anesthesia: No Surgical History Surgical History H/O cataract extraction History of colonoscopy History of heart artery stent History of surgery History of surgery History of transurethral resection of prostate Hx of colonoscopy Hx of endoscopy Hx of esophagogastroduodenoscopy History of Problems with Anesthesia: No Social History Social History Household Members: Spouse Are you a primary director long term care to a significant other at home: No Do you presently have visiting nurse or other home services: No Alcohol intake: never Use of substances other than those prescribed or required for medical reasons: No Have you been hit, kicked, punched, or otherwise hurt by someone within the past year? If so, by whom?: No Are you DNR?: No Advance Directives: No Advance Directives Information Provided: No Advance Directives on File: No Recently lost weight without trying: No Eating poorly because of decreased appetite: No Nutrition Risks: No Nutritional Risk Meds Allergies Allergy/AdvReac Type Severity Reaction Status Date / Time lisinopril [From ZESTRIL] Allergy Severe UNABLE TO Verified 01/30/21 14:52 BREATH dextran 40 [DEXTRAN 40] Allergy Intermediate tachycardia Verified 01/30/21 14:52 latex [LATEX] Allergy Mild BLISTERS Verified 01/30/21 14:52 cyclobenzaprine Allergy Unknown Unknown Verified 01/30/21 14:52 [From Flexeril] egg Allergy Unknown unknown Verified 01/30/21 14:52 Iodinated Contrast Media Allergy Unknown UNKNOWN Verified 01/30/21 14:52 [CONTRAST,IV] tizanidine [From Zanaflex] Allergy Unknown Hallucinati Verified 01/30/21 14:52 ons pregabalin AdvReac Unknown hallucinati Verified 01/30/21 14:52 ons Home Medications Medication Instructions Recorded Confirmed Last Taken Type metoprolol tartrate 50 mg tablet 75 mg PO BID 07/16/20 01/30/21 02/04/21 History torsemide 20 mg tablet 20 mg PO DAILY 07/16/20 01/30/21 Unknown History aspirin 81 mg PO DAILY 08/14/20 01/30/21 Unknown History cyanocobalamin (vitamin B-12) 1,000 mcg PO DAILY 08/14/20 01/30/21 Unknown History ferrous sulfate 325 mg (65 mg 325 mg PO BID 10/17/20 01/30/21 Unknown History iron) tablet folic acid 1 mg tablet 1 mg PO DAILY 10/17/20 01/30/21 Unknown History Exam Exam Date and Time: February 15, 2021 0944 Height,Weight and Vital Signs: Height 5 ft 9 in Weight 96.615 kg Narrative Narrative: Per 11/2020 cardiac note: EKG SR with 1st degree AV block Echo with significant with mean velocity >40, but does not appear critical. Assessment and Plan Assessment Anesthesia Assessment: Chart Reviewed Documented by User: Matthieu Pradhan 02/18/21 09:21 [facility] Past Medical History Medical History Aortic stenosis CAD (coronary artery disease) Chronic fatigue COVID-19 vaccine series completed Diabetes type 2, uncontrolled Diabetic nephropathy associated with type 2 diabetes mellitus Diabetic 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 associated with type 2 diabetes mellitus DMII (diabetes mellitus, type 2) KOEHLER (dyspnea on exertion) Dyslipidemia Esophageal varices without bleeding GERD (gastroesophageal reflux disease) HTN (hypertension) Hypertension IBS (irritable colon syndrome) Iron deficiency 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 On beta kayy at home ANUJA on CPAP Polyneuropathy Prostate cancer Spinal stenosis Varices of esophagus determined by endoscopy Family History Family History Father CVD (cardiovascular disease) Past heart attack Mother CVD (cardiovascular disease) Brain cancer Heart problem Daughter Breast cancer Sister Breast cancer Son Alive and well Family/Other Myocardial infarction Liver cancer Surgical History Surgical History H/O cataract extraction History of colonoscopy History of heart artery stent History of surgery History of surgery History of transurethral resection of prostate Hx of colonoscopy Hx of endoscopy Hx of esophagogastroduodenoscopy Social History Social History Household Members: Spouse Are you a primary director long term care to a significant other at home: No Do you presently have visiting nurse or other home services: No Alcohol intake: never Use of substances other than those prescribed or required for medical reasons: No Have you been hit, kicked, punched, or otherwise hurt by someone within the past year? If so, by whom?: No Are you DNR?: No Advance Directives: No Advance Directives Information Provided: No Advance Directives on File: No Recently lost weight without trying: No Eating poorly because of decreased appetite: No Nutrition Risks: No Nutritional Risk Meds Allergies Allergy/AdvReac Type Severity Reaction Status Date / Time lisinopril [From ZESTRIL] Allergy Severe UNABLE TO Verified 01/30/21 14:52 BREATH dextran 40 [DEXTRAN 40] Allergy Intermediate tachycardia Verified 01/30/21 14:52 latex [LATEX] Allergy Mild BLISTERS Verified 01/30/21 14:52 cyclobenzaprine Allergy Unknown Unknown Verified 01/30/21 14:52 [From Flexeril] egg Allergy Unknown unknown Verified 01/30/21 14:52 Iodinated Contrast Media Allergy Unknown UNKNOWN Verified 01/30/21 14:52 [CONTRAST,IV] tizanidine [From Zanaflex] Allergy Unknown Hallucinati Verified 01/30/21 14:52 ons pregabalin AdvReac Unknown hallucinati Verified 01/30/21 14:52 ons Home Medications Medication Instructions Recorded Confirmed Last Taken Type metoprolol tartrate 50 mg tablet 75 mg PO BID 07/16/20 01/30/21 02/04/21 History torsemide 20 mg tablet 20 mg PO DAILY 07/16/20 01/30/21 Unknown History aspirin 81 mg PO DAILY 08/14/20 01/30/21 Unknown History cyanocobalamin (vitamin B-12) 1,000 mcg PO DAILY 08/14/20 01/30/21 Unknown History ferrous sulfate 325 mg (65 mg 325 mg PO BID 10/17/20 01/30/21 Unknown History iron) tablet folic acid 1 mg tablet 1 mg PO DAILY 10/17/20 01/30/21 Unknown History Exam Airway Mallampati Class: III TM Dist: >3cm Neck ROM: Full Loose/Missing/Broken Teeth: Yes (poor dentition) Heart: [id number] Lungs: cta b/l Assessment and Plan Assessment Anesthesia Assessment: Anesthesia Plan Discussed, PAT Visit and Chart Reviewed Final Anesthetic Review NPO: Yes ASA Class: III Final Preanesthetic Review: No Changes in Pt Med Stat, Meds/Allgs Chart Reviewed, Consent Obtained/Reviewed and Anes Risks/Benef Reviewed Patient Risk: Intermediate Procedure Risk: Low Assessment/Block/Sedation in SS: Assess/Block/Sedation-SS Anesthetic Plan Anesthetic Plan: MAC: and Agree w/ Assess. and Plan Disposition: Standard PACU
[2021-02-18] MEDS: Tetracaine HCl/PF 0.5% Oph Sol 4 ML DROPS 1 DROP EYE-RIGHT (08:53)
[2021-02-18 08:54] VITALS: BP 127/53; PULSE 67; RESP 16; TEMP 36.9; O2SAT 95
[2021-02-18] MEDS: Tropicamide 1 % Ophth Sol 3 ML BTL 1 DROP EYE-RIGHT ×3 (08:58→09:15)
[2021-02-18] MEDS: Phenylephrine HCL 2.5% Oph SoL 2 ML BOTTLE 1 DROP EYE-RIGHT ×3 (09:03→09:21)
[2021-02-18] MEDS: Lactated Ringers 500 ML 50 ML IV (09:07)
[2021-02-18 09:15] LABS: Glucose, Whole Blood 158 mg/dL (60-115)
--- NOTE | 2021-02-18 09:27 | PC.NURSE ---
MD FRANCO AWARE OF PRE-OP RHYTHM STRIP. ASYMPTOMATIC.
--- NOTE | 2021-02-18 10:03 | HO.PNOPHT ---
Ophthalmology Procedure Procedure Date of Service: 02/18/21 Ophthalmology Viscoelastic: Libby Charlest Dual Pack Pro Ophthalmology Lenses: TECOCDY [id number] (13) Procedure Notes: PREOPERATIVE DIAGNOSIS: Decreased visual acuity right eye secondary to cataract POSTOPERATIVE DIAGNOSIS: Same PROCEDURE: Right cataract extraction with intraocular lens insertion SURGEON: Rg Bennett M.D. ANESTHESIA: Topical/MAC ESTIMATED BLOOD LOSS: None COMPLICATIONS: None After obtaining informed consent, the patient was brought to the operating room suite and placed in the supine position. After adequate sedation per anesthesia, topical drops of Tetracaine were given to the right eye. The eye was then prepped and draped in the usual sterile fashion. The operating room microscope was then positioned over the operative eye and a lid speculum placed. A paracentesis was created. Viscoelastic was then instilled into the anterior chamber. A three plane incision was then created temporally, utilizing a 2.85 mm keratome. Capsulotomy forceps were then utilized to create a circular tear capsulotomy. Hydrodissection and hydrodelineation were carried out until adequate mobilization of the nucleus occurred. Phacoemulsification was then utilized to remove the dense central nucleus followed by removal of the cortical material utilizing the automated aspiration irrigation unit. Viscoelastic was instilled into the posterior capsular bag followed by placement of a posterior chamber intraocular lens without difficulty. The residual Viscoelastic was then removed utilizing the automated IA machine. The wound was checked and found to be watertight. The patient tolerated the procedure well and the lid speculum was removed. Intracameral injection of Vigamox 0.1 mL followed by a subtenon injection of Kenalog-40 0.2 mL were administered. The patient will be seen in the a.m.
[2021-02-18 10:29] VITALS: BP 176/78; PULSE 69; RESP 17; TEMP 36.8; O2SAT 96
== END 2021-02-18 10:40 | disposition home or self-care (01) ==
PROVIDERS: PCP Physician Assistant; Visit Provider Ophthalmology
PROC: (CPT 66985; principal; 2021-02-18 10:20)
DX: H25.11 Age-related nuclear cataract, right eye (principal); H54.7 Unspecified visual loss; R53.82 Chronic fatigue, unspecified; I10 Essential (primary) hypertension; E11.21 Type 2 diabetes mellitus with diabetic nephropathy; E11.42 Type 2 diabetes mellitus with diabetic 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; D50.9 Iron deficiency anemia, unspecified; G47.33 Obstructive sleep apnea (adult) (pediatric); Z79.4 Long term (current) use of insulin; Z99.89 Dependence on other enabling machines and devices; Z79.899 Other long term (current) drug therapy; Z88.8 Allergy status to other drugs, medicaments and biological substances; Z91.040 Latex allergy status; Z91.041 Radiographic dye allergy status
CPT/HCPCS: 66984; 82947; J3300; V2632

== ENCOUNTER 2021-02-25 11:22 | Outpatient (REF) | payer MEDICARE, SELFPAY ==
--- NOTE | ~2021-02-25 | US_ITS ---
EXAMINATION: US ABDOMEN COMPLETE CLINICAL INFORMATION: Unspecified cirrhosis of liver. COMPARISON: Ultrasound abdomen limited dated 09/19/2020. KUB dated 03/14/2020. MRI abdomen without and with contrast dated 01/12/2020. Ultrasound abdomen complete dated 12/27/2019. CT abdomen and pelvis without contrast dated 05/20/2017. X-ray abdomen dated 08/09/2012. TECHNIQUE: Real-time imaging of the abdominal viscera. FINDINGS: PANCREAS: The head and the body of the pancreas are homogeneous in echotexture. The tail of the pancreas is not visualized. ABDOMINAL AORTA: The proximal, mid, and distal segments are normal in caliber. INFERIOR VENA CAVA: Visualized portions are normal. LIVER: The liver is enlarged and measures 20.5 cm in length. The liver contour is normal. No focal hepatic lesion. There is no intrahepatic biliary duct dilatation seen. GALLBLADDER: Gallbladder wall thickness measures 0.3 cm. The gallbladder is physiologically distended. Multiple mobile gallstones are present. No evidence of gallbladder wall thickening or pericholecystic fluid. COMMON BILE DUCT: Normal in caliber measuring 0.6 cm in diameter. RIGHT KIDNEY: Normal. No hydronephrosis. No renal calculi or focal parenchymal lesions. The kidney measures 12.6 cm in maximum dimension. LEFT KIDNEY: Normal. No hydronephrosis. No renal calculi or focal parenchymal lesions. The kidney measures 11.9 cm in maximum dimension. SPLEEN: There are small splenic varices seen. The spleen is enlarged and measures 18.3 cm in maximum dimension. FREE FLUID: None. US/US abdomen complete IMPRESSION: Hepatomegaly with increased echogenicity. No focal lesion seen. The spleen is enlarged with small varices at the hilum. Gallstones with mild wall thickening measuring 0.3 cm. The rest of the abdominal ultrasound is unremarkable.
== END 2021-02-25 11:23 | disposition home or self-care (01) ==
LOC: HO.US 11:22
PROVIDERS: Visit Provider Internal Medicine Gastroenterology
DX: K74.60 Unspecified cirrhosis of liver (principal)
CPT/HCPCS: 76700

== ENCOUNTER 2021-03-19 13:02 | Outpatient (REF) | payer MEDICARE, SELFPAY | END 2021-03-19 13:03 | disposition home or self-care (01) | LOC: HO.MDS 13:02 | PROVIDERS: PCP Physician Assistant; Visit Provider Internal Medicine | DX: D50.9 Iron deficiency anemia, unspecified (principal) | CPT/HCPCS: 96365; J2916 ==

== ENCOUNTER → 2021-03-21 10:15 | Outpatient (BNVA) | payer MEDICARE, SELFPAY | PROVIDERS: PCP Physician Assistant; Visit Provider Internal Medicine Gastroenterology | DX: Z13.89 Encounter for screening for other disorder (principal) | CPT/HCPCS: Q3014 ==

== ENCOUNTER 2021-03-26 08:25 | Outpatient (REF) | payer MEDICARE, SELFPAY ==
--- NOTE | ~2021-03-26 | XR_ITS ---
EXAMINATION: XR KNEE STANDING, BILATERAL XR KNEE, LEFT CLINICAL INFORMATION: Left knee pain. COMPARISON: Bilateral knee radiographs dated 04/17/2015. TECHNIQUE: AP standing view of the right and left knee. Lateral and sunrise views of the left knee. FINDINGS: LEFT KNEE: Severe medial compartment joint space narrowing with subchondral sclerosis and mild bony remodeling. Prominent tricompartmental marginal osteophytes. Posterior calcified loose bodies measuring up to 1.2 cm. Trace joint effusion. No fracture or dislocation. RIGHT KNEE: Moderate medial compartment joint space narrowing. Tricompartmental marginal osteophytes. XR/XR knee standing BI IMPRESSION: Left knee: Severe medial compartment as well as more moderate patellofemoral and lateral compartment osteoarthritis, progressed when compared to the prior radiographs. Small joint effusion and posterior loose bodies. Right knee: Moderate medial as well as more mild patellofemoral and lateral compartment osteoarthritis, similar when compared to the prior radiographs.
--- NOTE | ~2021-03-26 | XR_ITS ---
EXAMINATION: XR KNEE STANDING, BILATERAL XR KNEE, LEFT CLINICAL INFORMATION: Left knee pain. COMPARISON: Bilateral knee radiographs dated 04/17/2015. TECHNIQUE: AP standing view of the right and left knee. Lateral and sunrise views of the left knee. FINDINGS: LEFT KNEE: Severe medial compartment joint space narrowing with subchondral sclerosis and mild bony remodeling. Prominent tricompartmental marginal osteophytes. Posterior calcified loose bodies measuring up to 1.2 cm. Trace joint effusion. No fracture or dislocation. RIGHT KNEE: Moderate medial compartment joint space narrowing. Tricompartmental marginal osteophytes. XR/XR knee LT 2V IMPRESSION: Left knee: Severe medial compartment as well as more moderate patellofemoral and lateral compartment osteoarthritis, progressed when compared to the prior radiographs. Small joint effusion and posterior loose bodies. Right knee: Moderate medial as well as more mild patellofemoral and lateral compartment osteoarthritis, similar when compared to the prior radiographs.
== END 2021-03-26 08:26 | disposition home or self-care (01) ==
LOC: HO.HOSX 08:25
PROVIDERS: Visit Provider Orthopaedic Surgery
DX: M17.12 Unilateral primary osteoarthritis, left knee (principal); M25.561 Pain in right knee
CPT/HCPCS: 20610; 73560; 73565; 99202; J1040

== ENCOUNTER 2021-03-29 13:35 | Outpatient (REF) | payer MEDICARE, SELFPAY | END 2021-03-29 13:36 | disposition home or self-care (01) | LOC: HO.MDS 13:35 | PROVIDERS: PCP Physician Assistant; Visit Provider Internal Medicine | DX: D50.9 Iron deficiency anemia, unspecified (principal) | CPT/HCPCS: 96365; J2916 ==

== ENCOUNTER 2021-04-05 13:05 | Outpatient (REF) | payer MEDICARE, SELFPAY | END 2021-04-05 13:06 | disposition home or self-care (01) | LOC: HO.MDS 13:05 | PROVIDERS: PCP Physician Assistant; Visit Provider Internal Medicine | DX: D50.9 Iron deficiency anemia, unspecified (principal) | CPT/HCPCS: 96365 ==

== ENCOUNTER 2021-04-11 13:12 | Outpatient (REF) | payer MEDICARE, SELFPAY | END 2021-04-11 13:13 | disposition home or self-care (01) | LOC: HO.MDS 13:12 | PROVIDERS: PCP Physician Assistant; Visit Provider Internal Medicine | DX: D50.9 Iron deficiency anemia, unspecified (principal) | CPT/HCPCS: 96365; J2916 ==

== ENCOUNTER 2021-04-18 13:08 | Outpatient (REF) | payer MEDICARE, SELFPAY | END 2021-04-18 13:09 | disposition home or self-care (01) | LOC: HO.MDS 13:08 | PROVIDERS: PCP Physician Assistant; Visit Provider Internal Medicine | DX: D50.9 Iron deficiency anemia, unspecified (principal) | CPT/HCPCS: 96365; J2916 ==

== ENCOUNTER 2021-04-23 12:53 | Outpatient (REF) | payer MEDICARE, SELFPAY | END 2021-04-23 12:54 | disposition home or self-care (01) | LOC: HO.MDS 12:53 | PROVIDERS: PCP Physician Assistant; Visit Provider Internal Medicine | DX: D50.9 Iron deficiency anemia, unspecified (principal) | CPT/HCPCS: 96365; J2916 ==

== ENCOUNTER 2021-04-30 12:25 | Day surgery (SDC) | payer MEDICARE, SELFPAY ==
[2021-04-23 15:04] VITALS: BMI 31.4
--- NOTE | 2021-04-29 11:38 | HO.ANESPROP2 ---
Documented by User: Rosio Carvajal NP 04/29/21 11:48 HPI - Anesthesia Eval Consult details Narrative: 76yo M for Upper Endoscopy with Ligation Cardiology requesting GI clearance d/t GIB prior to considering cardiac revascularization and/or TAVR Remote ETOH cirrhosis with varices PMFSH Active Problems Active Problems: All Active Problems (Updated 03/26/21 @ 13:39 by Narendra Andino MD) Need for pneumococcal vaccination (Acute) Esophageal varices in cirrhosis (Acute) Portal hypertensive gastropathy (Acute) Adenomatous polyps (Acute) Diverticulosis (Acute) Internal hemorrhoids (Acute) Radiation proctitis (Acute) Anemia (Chronic) Multiple gastric polyps (Acute) Vitamin B12 deficiency (Acute) Cirrhosis of liver without ascites (Acute) Pre-op evaluation (Acute) Cataract (Acute) BPH (benign prostatic hyperplasia) (Acute) Osteoarthritis of left knee (Acute) Primary osteoarthritis of left knee (Acute) CAD (coronary artery disease) (Acute) Hypertension (Acute) Dyslipidemia (Acute) Diabetic nephropathy associated with type 2 diabetes mellitus (Acute) Diabetic 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 associated with type 2 diabetes mellitus (Acute) custodial (current) use of insulin (Acute) Diabetes type 2, uncontrolled (Acute) GERD (gastroesophageal reflux disease) (Acute) Past Medical History Medical History (Updated 03/26/21 @ 13:39 by Narendra Andino MD) Aortic stenosis CAD (coronary artery disease) Chronic fatigue COVID-19 vaccine series completed Diabetes type 2, uncontrolled Diabetic nephropathy associated with type 2 diabetes mellitus Diabetic 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 associated with type 2 diabetes mellitus DMII (diabetes mellitus, type 2) KOEHLER (dyspnea on exertion) Dyslipidemia Esophageal varices without bleeding GERD (gastroesophageal reflux disease) HTN (hypertension) Hypertension IBS (irritable colon syndrome) Iron deficiency anemia custodial (current) use of insulin On beta kayy at home ANUJA on CPAP Polyneuropathy Prostate cancer Spinal stenosis Varices of esophagus determined by endoscopy Family History Family History Father CVD (cardiovascular disease) Past heart attack Mother CVD (cardiovascular disease) Brain cancer Heart problem Daughter Breast cancer Sister Breast cancer Son Alive and well Family/Other Myocardial infarction Liver cancer Family history of problems with anesthesia: No Surgical History Surgical History (Updated 04/23/21 @ 15:00 by Staci Landry) H/O cataract extraction History of colonoscopy History of heart artery stent History of surgery History of surgery History of transurethral resection of prostate Hx of colonoscopy Hx of endoscopy Hx of esophagogastroduodenoscopy History of Problems with Anesthesia: No Social History Social History Household Members: Spouse Are you a primary manager wound care to a significant other at home: No Do you presently have visiting nurse or other home services: No Alcohol intake: never Patient Tobacco Use Status: Never used Tobacco Second Hand Smoke Exposure: No Use of substances other than those prescribed or required for medical reasons: No Are you DNR?: No Advance Directives: No Advance Directives Information Provided: Yes Advance Directives on File: No Meds Allergies Allergy/AdvReac Type Severity Reaction Status Date / Time lisinopril [From ZESTRIL] Allergy Severe UNABLE TO Verified 03/21/21 10:16 BREATH dextran 40 [DEXTRAN 40] Allergy Intermediate tachycardia Verified 03/21/21 10:16 latex [LATEX] Allergy Mild BLISTERS Verified 03/21/21 10:16 cyclobenzaprine Allergy Unknown Unknown Verified 03/21/21 10:16 [From Flexeril] egg Allergy Unknown unknown Verified 03/21/21 10:16 Iodinated Contrast Media Allergy Unknown UNKNOWN Verified 03/21/21 10:16 [CONTRAST,IV] tizanidine [From Zanaflex] Allergy Unknown Hallucinati Verified 03/21/21 10:16 ons pregabalin AdvReac Unknown hallucinati Verified 03/21/21 10:16 ons Home Medications Medication Instructions Recorded Confirmed Last Taken Type metoprolol tartrate 50 mg tablet 75 mg PO BID 07/16/20 04/23/21 02/04/21 History torsemide 20 mg tablet 20 mg PO DAILY 07/16/20 04/23/21 Unknown History aspirin 81 mg tablet,delayed 81 mg PO DAILY 08/14/20 04/23/21 Unknown History release cyanocobalamin (vitamin B-12) 1,000 mcg PO DAILY 08/14/20 04/23/21 Unknown History 1,000 mcg lozenges ferrous sulfate 325 mg (65 mg 325 mg PO BID 10/17/20 04/23/21 Unknown History iron) tablet folic acid 1 mg tablet 1 mg PO DAILY 10/17/20 04/23/21 Unknown History Exam Exam Date and Time: April 29, 2021 1138 Height,Weight and Vital Signs: Height 5 ft 9 in Weight 96.615 kg Pertinent Lab Results Pertinent Lab Results: Laboratory Tests 01/25/21 02/25/21 10:56 13:11 WBC 3.8 L Hgb 10.2 L Hct 32.4 L Plt Count 89 L Sodium 142 Potassium 4.1 Chloride 104 Carbon Dioxide 27 BUN 25 H Creatinine 1.06 Narrative Narrative: Per 03/05/21 cardiac note: EKG NSR with 1st degree AV block Mild IVCD, increase voltage in limb leads, poor r wave progression, LAD No significant ST-T wave changes Echo 02/26/21 significant aortic stenosis with mean velocity of >40 PA pressures worse Moderate mitral regurg Normal EF Diagnositc cath progressive LAD and LCX disease and LAD is FFR positive. No angina and not yet candidate for DAPT d/t GIB issues Assessment and Plan Assessment Anesthesia Assessment: Chart Reviewed Final Anesthetic Review Family History of Problems with Anesthesia: No History of Problems with Anesthesia: No Documented by User: Aimee Guillory MD 04/30/21 13:12 [facility] Past Medical History Medical History (Updated 03/26/21 @ 13:39 by Narendra Andino MD) Aortic stenosis CAD (coronary artery disease) Chronic fatigue COVID-19 vaccine series completed Diabetes type 2, uncontrolled Diabetic nephropathy associated with type 2 diabetes mellitus Diabetic 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 associated with type 2 diabetes mellitus DMII (diabetes mellitus, type 2) KOEHLER (dyspnea on exertion) Dyslipidemia Esophageal varices without bleeding GERD (gastroesophageal reflux disease) HTN (hypertension) Hypertension IBS (irritable colon syndrome) Iron deficiency anemia 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 On beta kayy at home ANUJA on CPAP Polyneuropathy Prostate cancer Spinal stenosis Varices of esophagus determined by endoscopy Family History Family History Father CVD (cardiovascular disease) Past heart attack Mother CVD (cardiovascular disease) Brain cancer Heart problem Daughter Breast cancer Sister Breast cancer Son Alive and well Family/Other Myocardial infarction Liver cancer Surgical History Surgical History (Updated 04/23/21 @ 15:00 by Staci Landry) H/O cataract extraction History of colonoscopy History of heart artery stent History of surgery History of surgery History of transurethral resection of prostate Hx of colonoscopy Hx of endoscopy Hx of esophagogastroduodenoscopy Social History Social History Household Members: Spouse Are you a primary manager wound care to a significant other at home: No Do you presently have visiting nurse or other home services: No Alcohol intake: never Patient Tobacco Use Status: Never used Tobacco Second Hand Smoke Exposure: No Use of substances other than those prescribed or required for medical reasons: No Are you DNR?: No Advance Directives: No Advance Directives Information Provided: Yes Advance Directives on File: No Meds Allergies Allergy/AdvReac Type Severity Reaction Status Date / Time lisinopril [From ZESTRIL] Allergy Severe UNABLE TO Verified 03/21/21 10:16 BREATH dextran 40 [DEXTRAN 40] Allergy Intermediate tachycardia Verified 03/21/21 10:16 latex [LATEX] Allergy Mild BLISTERS Verified 03/21/21 10:16 cyclobenzaprine Allergy Unknown Unknown Verified 03/21/21 10:16 [From Flexeril] egg Allergy Unknown unknown Verified 03/21/21 10:16 Iodinated Contrast Media Allergy Unknown UNKNOWN Verified 03/21/21 10:16 [CONTRAST,IV] tizanidine [From Zanaflex] Allergy Unknown Hallucinati Verified 03/21/21 10:16 ons pregabalin AdvReac Unknown hallucinati Verified 03/21/21 10:16 ons Home Medications Medication Instructions Recorded Confirmed Last Taken Type metoprolol tartrate 50 mg tablet 75 mg PO BID 07/16/20 04/23/21 02/04/21 History torsemide 20 mg tablet 20 mg PO DAILY 07/16/20 04/23/21 Unknown History aspirin 81 mg tablet,delayed 81 mg PO DAILY 08/14/20 04/23/21 Unknown History release cyanocobalamin (vitamin B-12) 1,000 mcg PO DAILY 08/14/20 04/23/21 Unknown History 1,000 mcg lozenges ferrous sulfate 325 mg (65 mg 325 mg PO BID 10/17/20 04/23/21 Unknown History iron) tablet folic acid 1 mg tablet 1 mg PO DAILY 10/17/20 04/23/21 Unknown History Exam Airway Mallampati Class: III TM Dist: >3cm Neck ROM: Full
[2021-04-30 12:33] VITALS: BP 142/55; PULSE 64; RESP 18; TEMP 36.8; O2SAT 95
[2021-04-30 12:52] LABS: Glucose, Whole Blood 124 mg/dL (60-115)
[2021-04-30] MEDS: Lactated Ringers 1,000 ML 50 ML IVCONT (12:55)
--- NOTE | 2021-04-30 13:10 | MHC.SHP ---
Pre-Procedural Eval Section A Date of Service: 04/30/21 The patient is an INPATIENT: No The History & Physical has been completed within 30 days and I have reviewed it.: No Section B Chief Complaint: FU of esophageal varices Details of Present Illness: FU of esophageal varices Relevant Family History (Specify if Yes): Yes Relevant Social History: None Present Medications: see Short Stay Collaborative assessment Medical History: Significant History (Aortic stenosis CAD (coronary artery disease) Chronic fatigue COVID-19 vaccine series completed Diabetes type 2, uncontrolled Diabetic nephropathy associated with type 2 diabetes mellitus Diabetic 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 associated with type 2 diabetes mellitus DMII (diabetes mellitus, type 2) KOEHLER (dyspnea o) History of Previous Operations: Relevant previous surgery/procedure and date(s) (H/O cataract extraction History of colonoscopy History of heart artery stent History of surgery History of surgery History of transurethral resection of prostate Hx of colonoscopy Hx of endoscopy Hx of esophagogastroduodenoscopy) Allergies: Allergies Allergy/AdvReac Type Severity Reaction Status Date / Time lisinopril [From ZESTRIL] Allergy Severe UNABLE TO Verified 03/21/21 10:16 BREATH dextran 40 [DEXTRAN 40] Allergy Intermediate tachycardia Verified 03/21/21 10:16 latex [LATEX] Allergy Mild BLISTERS Verified 03/21/21 10:16 cyclobenzaprine Allergy Unknown Unknown Verified 03/21/21 10:16 [From Flexeril] egg Allergy Unknown unknown Verified 03/21/21 10:16 Iodinated Contrast Media Allergy Unknown UNKNOWN Verified 03/21/21 10:16 [CONTRAST,IV] tizanidine [From Zanaflex] Allergy Unknown Hallucinati Verified 03/21/21 10:16 ons pregabalin AdvReac Unknown hallucinati Verified 03/21/21 10:16 ons Review of Systems Sugical H&P ROS: Negative: Constitution, Cardiovascular, Respiratory and Gastrointestinal Exam Surgical H&P Exam: Normal: Heart, Normal: Lungs, Normal: Extremities and Normal: Abdomen Plan Diagnosis/Plan: Unchanged I have reviewed the history and physical and performed a pertinent physical examination on my patient. No changes have occurred unless specified.
--- NOTE | 2021-04-30 13:38 | PM.OP ---
Brief Operative Note Date of Service: 04/30/21 Pre-op diagnosis: Follow-up of esophageal varices Post-op diagnosis: other (Esophageal varices, portal gastropathy, gastric nodule) Procedure: FLEXIBLE TRANSORAL UPPER GASTROINTESTINAL ENDOSCOPY WITH BAND LIGATION OF ESOPHAGEAL VARICES AND SNARE POLYPECTOMY OF GASTRIC NODULE Consent: Indications for the procedure and potential complications of bleeding, perforation, reaction to medications and missed diagnosis were discussed with the patient and informed consent was obtained. Instrument: Olympus GIF H 190 mid size upper endoscope Monitoring: Vital signs and clinical assessment, continuous EKG monitoring, Pulse oximetry, Carbon Dioxide monitoring and blood pressure monitoring were done throughout the procedure. Procedure: The patient was placed in the left lateral decubitis position and pre-procedure medications were administered and a bite block was placed. The endoscope was inserted into the mouth and advanced under direct vision to the third part of duodenum. A careful inspection was made as the upper endoscope was withdrawn including a retroflexed examination of the proximal stomach; Findings and interventions are described below. Findings: Larynx: Normal Esophagus: GE junction at 40cms. Grade 2-3 four column varices from 30 to 40 cms. band ligation x 3 was performed with flattening of the varices. Stomach: Moderate portal gastropathy. A 1.5 cms ulcerated polyp/nodule in the antrum partially removed with a hot snare. No gastric varices and Grade 2 flap valve on retroflexed examination of the cardia. Duodenum: Normal bulb and descending duodenum Intervention: Biopsies as noted above Impression and Post Procedure Diagnosis: Endoscopy Findings: ESOPHAGUS: GE junction at 40cms. Grade 2-3 four column varices from 30 to 40 cms. band ligation x 3 was performed with flattening of the varices. STOMACH: Moderate portal gastropathy. A 1.5 cms ulcerated polyp/nodule in the antrum partially removed with a hot snare. Plan: Await pathology results Patient has an appointment on 06/13/21 in the GI Clinic with Arsenio Burns M.D.-. Above findings were reviewed with the patient Surgeon: Arsenio Burns MD Anesthesia: MAC (Mavis Avina CRNA) Was an Patient Coordinator Front Desk used for this Procedure?: Yes Patient Coordinator Front Desk: Kavita Park Estimated blood loss (mL): 0 Pathology: other ( A- GASTRIC NODULE) Condition: stable Disposition: PACU
--- NOTE | 2021-04-30 13:39 | P.OP_ITS ---
Operative Note Operative Note Date of Service: 04/30/21 Narrative: Pre-op diagnosis:?Follow-up of esophageal varices Post-op diagnosis:?other (Esophageal varices, portal gastropathy, gastric nodule) Procedure:?FLEXIBLE TRANSORAL UPPER GASTROINTESTINAL ENDOSCOPY WITH BAND LIGATIO N OF ESOPHAGEAL VARICES AND SNARE POLYPECTOMY OF GASTRIC NODULE Consent:?Indications for the procedure and potential complications of bleeding, perforation, reaction to medications and missed diagnosis were discussed with the patient and informed consent was obtained. Instrument:?Olympus GIF H 190 mid size upper endoscope Monitoring: Vital signs and clinical assessment, continuous EKG monitoring, Pulse oximetry, Carbon Dioxide monitoring and blood pressure monitoring were done throughout the procedure. Procedure:?The patient was placed in the left lateral decubitis position and pre-procedure medications were administered and a bite block was placed. The endoscope was inserted into the mouth and advanced under direct vision to the third part of duodenum. A careful inspection was made as the upper endoscope was withdrawn including a retroflexed examination of the proximal stomach; Findings and interventions are described below. Findings: Larynx:??Normal Esophagus:?GE junction at 40cms.? Grade 2-3 four column varices from 30 to 40 cms. band ligation x 3 was performed with flattening of the varices. Stomach:? Moderate portal gastropathy. A 1.5 cms ulcerated polyp/nodule in the antrum partially removed with a hot snare.? No gastric varices and grade 2 flap valve on retroflexed examination of the cardia. Duodenum:?Normal bulb and descending duodenum Intervention:?Biopsies as noted above Impression and Post Procedure Diagnosis: Endoscopy Findings: ESOPHAGUS: GE junction at 40cms.? Grade 2-3 four column varices from 30 to 40 cms. band ligation x 3 was performed with flattening of the varices. STOMACH:??Moderate portal gastropathy. A 1.5 cms ulcerated polyp/nodule in the antrum partially removed with a hot snare. Plan: Await pathology results Patient has an appointment on 06/13/21 in the GI Clinic with Toney Oglesby . Above findings were reviewed with the patient Surgeon:?Arsenio Burns MD Anesthesia:?MAC (Mavis Avina CRNA) Was an Personal Injury Law Specialist used for this Procedure?:?Yes Personal Injury Law Specialist:?Kavita Schmith Estimated blood loss (mL):?0 Pathology:?other ( A- GASTRIC NODULE) Condition:?stable Disposition:?PACU
[2021-04-30 14:18] VITALS: BP 99/41; PULSE 63; RESP 16; TEMP 36.6; O2SAT 92
[2021-04-30 14:25] VITALS: BP 131/78; PULSE 61; RESP 18; TEMP 36.5; O2SAT 96
[2021-04-30 14:34] VITALS: BP 112/76; PULSE 60; RESP 18; TEMP 36.1; O2SAT 96
== END 2021-04-30 15:20 | disposition home or self-care (01) ==
PROVIDERS: PCP Physician Assistant; Visit Provider Internal Medicine Gastroenterology
PROC: 0DJ08ZZ Inspection of Upper Intestinal Tract, Via Natural or Artificial Opening Endoscopic (ICD-10-PCS; CPT 43235; principal; 2021-04-30 13:30)
DX: I85.00 Esophageal varices without bleeding (principal); K31.7 Polyp of stomach and duodenum; K76.6 Portal hypertension; K21.9 Gastro-esophageal reflux disease without esophagitis; K31.89 Other diseases of stomach and duodenum; K74.60 Unspecified cirrhosis of liver; D50.9 Iron deficiency anemia, unspecified; I35.0 Nonrheumatic aortic (valve) stenosis; I10 Essential (primary) hypertension; G47.33 Obstructive sleep apnea (adult) (pediatric); E11.21 Type 2 diabetes mellitus with diabetic nephropathy; E11.42 Type 2 diabetes mellitus with diabetic 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; E53.8 Deficiency of other specified B group vitamins; Z79.82 Long term (current) use of aspirin; Z79.4 Long term (current) use of insulin; Z79.899 Other long term (current) drug therapy; Z99.89 Dependence on other enabling machines and devices; Z85.46 Personal history of malignant neoplasm of prostate; Z92.3 Personal history of irradiation
CPT/HCPCS: 43244; 43251; 82947; 88305; 88342; J3010

== ENCOUNTER 2021-06-11 09:03 | Outpatient (REF) | payer MEDICARE, SELFPAY ==
[2021-06-11 10:10] LABS: Hematocrit 31.9 % (42-52); Hemoglobin 10.2 g/dl (14.0-18.0); Mean Corpuscular Hemoglobin 30.7 pg (27.0-33.0); Mean Corpuscular Volume 96.1 fL (80-98); Mean Platelet Volume 11.3 fL (9.4-12.4); Red Blood Count 3.32 X10*6/uL (4.60-5.80); Red Cell Distribution Width 16.3 % (11.0-16.0); White Blood Count 4.7 X10*3/uL (4.8-10.8)
[2021-06-11 10:12] LABS: Platelet Count 95 X10*3/uL (160-400)
[2021-06-11 10:36] LABS: Estimated Average Glucose 123 mg/dL; Hemoglobin A1c % 5.9 %
[2021-06-11 10:48] LABS: Alanine Aminotransferase 26 U/L (0-40); Albumin Level 3.7 g/dL (3.5-5.0); Alkaline Phosphatase 155 U/L (39-117); Anion Gap 16 (12-20); Aspartate Amino Transferase 35 U/L (5-37); Bilirubin Total 1.1 mg/dL (0.0-1.0); Blood Urea Nitrogen 17 mg/dL (9-16); Carbon Dioxide 23 mmol/L (22-29); Chloride 108 mmol/L (96-108); Cholesterol 139 mg/dL; Estimated Glomerular Filt Rate > 60; Glucose Fasting 154 mg/dL (60-99); HDL Cholesterol 41 mg/dL; Iron 34 mcg/dL (45-160); LDL Cholesterol Calculated 67 mg/dl; Percent Iron Saturation 9 % (15-50); Potassium 4.1 mmol/L (3.3-5.1); Sodium 143 mmol/L (135-145); Total Iron Binding Capacity 400 mcg/dL (228-428); Total Protein 6.8 g/dL (6.5-8.0); Triglycerides 156 mg/dL; Unsaturated Iron Binding 366 ug/dL
[2021-06-11 10:54] LABS: TSH reflex Free T4 2.21 uIU/mL (0.32-4.0)
[2021-06-11 11:27] LABS: Creatinine Urine 102.69 mg/dL; Microalbum/Creatinine Ratio Ur 17.5 ug/mg cr
== END 2021-06-11 09:04 | disposition home or self-care (01) ==
LOC: HO.LAB 09:03
PROVIDERS: Absent Provider Physician Assistant; PCP Physician Assistant; Visit Provider Internal Medicine Cardiovascular Disease
DX: I10 Essential (primary) hypertension (principal); I25.10 Atherosclerotic heart disease of native coronary artery without angina pectoris; D50.9 Iron deficiency anemia, unspecified; I85.10 Secondary esophageal varices without bleeding; K74.60 Unspecified cirrhosis of liver; R06.09 Other forms of dyspnea
CPT/HCPCS: 36415; 80053; 80061; 82043; 83036; 83540; 84443; 85027

== ENCOUNTER → 2021-06-13 10:06 | Outpatient (BNVA) | payer MEDICARE, SELFPAY | PROVIDERS: Visit Provider Internal Medicine Gastroenterology | CPT/HCPCS: Q3014 ==

== ENCOUNTER 2021-06-28 13:03 | Outpatient (REF) | payer MEDICARE, SELFPAY | END 2021-06-28 13:04 | disposition home or self-care (01) | LOC: HO.MDS 13:03 | PROVIDERS: PCP Physician Assistant; Visit Provider Internal Medicine | DX: D50.9 Iron deficiency anemia, unspecified (principal) | CPT/HCPCS: 96365; J2916 ==

== ENCOUNTER 2021-07-04 13:28 | Outpatient (REF) | payer MEDICARE, SELFPAY | END 2021-07-04 13:29 | disposition home or self-care (01) | LOC: HO.MDS 13:28 | PROVIDERS: Visit Provider Internal Medicine | DX: D50.9 Iron deficiency anemia, unspecified (principal) | CPT/HCPCS: 96365; J2916 ==

== ENCOUNTER 2021-07-11 13:31 | Outpatient (REF) | payer MEDICARE, SELFPAY | END 2021-07-11 13:32 | disposition home or self-care (01) | LOC: HO.MDS 13:31 | PROVIDERS: Visit Provider Internal Medicine | DX: D50.9 Iron deficiency anemia, unspecified (principal) | CPT/HCPCS: 96365 ==

== ENCOUNTER 2021-07-18 13:03 | Outpatient (REF) | payer MEDICARE, SELFPAY | END 2021-07-18 13:04 | disposition home or self-care (01) | LOC: HO.MDS 13:03 | PROVIDERS: Visit Provider Internal Medicine | DX: D50.9 Iron deficiency anemia, unspecified (principal) | CPT/HCPCS: 96365; J2916 ==

== ENCOUNTER 2021-07-25 13:13 | Outpatient (REF) | payer MEDICARE, SELFPAY | END 2021-07-25 13:14 | disposition home or self-care (01) | LOC: HO.MDS 13:13 | PROVIDERS: Visit Provider Internal Medicine | DX: D50.9 Iron deficiency anemia, unspecified (principal) | CPT/HCPCS: 96365; J2916 ==

== ENCOUNTER 2021-08-01 12:59 | Outpatient (REF) | payer MEDICARE, SELFPAY | END 2021-08-01 13:00 | disposition home or self-care (01) | LOC: HO.MDS 12:59 | PROVIDERS: Visit Provider Internal Medicine | DX: D50.9 Iron deficiency anemia, unspecified (principal) | CPT/HCPCS: 96365; J2916 ==

== ENCOUNTER 2021-08-15 12:58 | Outpatient (REF) | payer MEDICARE, SELFPAY | END 2021-08-15 12:59 | disposition home or self-care (01) | LOC: HO.MDS 12:58 | PROVIDERS: PCP Physician Assistant; Visit Provider Internal Medicine | DX: D50.9 Iron deficiency anemia, unspecified (principal); K76.6 Portal hypertension; I85.10 Secondary esophageal varices without bleeding | CPT/HCPCS: 96365; J2916 ==

== ENCOUNTER 2021-08-22 13:17 | Outpatient (REF) | payer MEDICARE, SELFPAY | END 2021-08-22 13:18 | disposition home or self-care (01) | LOC: HO.MDS 13:17 | PROVIDERS: PCP Physician Assistant; Visit Provider Internal Medicine | DX: D50.9 Iron deficiency anemia, unspecified (principal) | CPT/HCPCS: 96365; J2916 ==

== ENCOUNTER 2021-08-29 13:02 | Outpatient (REF) | payer MEDICARE, SELFPAY | END 2021-08-29 13:03 | disposition home or self-care (01) | LOC: HO.MDS 13:02 | PROVIDERS: PCP Physician Assistant; Visit Provider Internal Medicine | DX: D50.9 Iron deficiency anemia, unspecified (principal) | CPT/HCPCS: 96365; J2916 ==

== ENCOUNTER → 2021-09-02 11:06 | Outpatient (BNVA) | payer MEDICARE, SELFPAY | PROVIDERS: PCP Physician Assistant; Visit Provider Orthopaedic Surgery | DX: M17.12 Unilateral primary osteoarthritis, left knee (principal) | CPT/HCPCS: 20610; 99212; J1100 ==

== ENCOUNTER 2021-09-05 12:55 | Outpatient (REF) | payer MEDICARE, SELFPAY | END 2021-09-05 12:56 | disposition home or self-care (01) | LOC: HO.MDS 12:55 | PROVIDERS: PCP Physician Assistant; Visit Provider Internal Medicine | DX: D50.9 Iron deficiency anemia, unspecified (principal) | CPT/HCPCS: 96365; J2916 ==

== ENCOUNTER → 2021-09-26 14:18 | Outpatient (BNVA) | payer MEDICARE, SELFPAY | PROVIDERS: PCP Physician Assistant; Referring Provider Physician Assistant; Visit Provider Internal Medicine Gastroenterology | DX: K58.0 Irritable bowel syndrome with diarrhea (principal); K74.60 Unspecified cirrhosis of liver; I85.10 Secondary esophageal varices without bleeding; K76.6 Portal hypertension; K31.89 Other diseases of stomach and duodenum; K31.7 Polyp of stomach and duodenum; K21.9 Gastro-esophageal reflux disease without esophagitis; D36.9 Benign neoplasm, unspecified site; E53.8 Deficiency of other specified B group vitamins | CPT/HCPCS: 99212 ==

== ENCOUNTER 2021-10-16 12:53 | Outpatient (REF) | payer MEDICARE, SELFPAY ==
--- NOTE | ~2021-10-16 | US_ITS ---
EXAMINATION: US ABDOMEN COMPLETE CLINICAL INFORMATION: Unspecified cirrhosis of liver. COMPARISON: Ultrasound abdomen complete 02/25/2021. Limited abdominal ultrasound 09/19/2020. X-ray abdomen KUB 03/14/2020. MRI abdomen 01/12/2020. TECHNIQUE: Real-time imaging of the abdominal viscera. FINDINGS: PANCREAS: The head of the pancreas is homogeneous in echotexture. The body and the tail of the pancreas are not visualized. ABDOMINAL AORTA: The proximal, mid, and distal segments are normal in caliber. INFERIOR VENA CAVA: Visualized portions are normal. LIVER: There is trace free fluid adjacent to the liver. The liver contour is normal. Liver is diffusely echogenic. No focal hepatic lesion. There is no intrahepatic biliary duct dilatation seen. Normal hepatopedal flow seen in the middle portal vein. The portal vein may be enlarged. GALLBLADDER: The gallbladder is physiologically distended. Multiple mobile gallstones are present. No evidence of pericholecystic fluid. COMMON BILE DUCT: Normal in caliber measuring 0.6 cm in diameter. RIGHT KIDNEY: No hydronephrosis or renal calculi. The kidney measures 13 cm in maximum dimension. There is an echogenic upper pole measuring 0.9 x 0.6 x 0.7 cm suggestive of a small AML. LEFT KIDNEY: No hydronephrosis or renal calculi. The kidney measures 13.1 cm in maximum dimension. There is an anechoic cyst in the midpole measuring 1.7 x 1.0 x 1.8 cm. SPLEEN: There are small prominent vessels seen in the splenic hilum, question splenic varices. The spleen measures 18.9 cm in maximum dimension. FREE FLUID: Trace free fluid around the liver. ADDITIONAL FINDING: Suspect splenic varices at the hilum. US/US abdomen complete IMPRESSION: Trace free fluid adjacent to the liver. Hepatic steatosis without focal lesion. Visualized pancreatic head is unremarkable. The rest of pancreas is not visualized due to overlying gas. 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 Left renal cyst midpole Suspect splenic varices and hilum. Slightly prominent middle portal vein, however, still hepatopedal flow maintained.
== END 2021-10-16 12:54 | disposition home or self-care (01) ==
LOC: HO.US 12:53
PROVIDERS: PCP Physician Assistant; Visit Provider Internal Medicine Gastroenterology
DX: K74.60 Unspecified cirrhosis of liver (principal)
CPT/HCPCS: 76700

== ENCOUNTER → 2021-11-08 10:40 | Outpatient (BNVA) | payer MEDICARE, SELFPAY | PROVIDERS: PCP Physician Assistant; Visit Provider Nurse Practitioner Gerontology | DX: E11.65 Type 2 diabetes mellitus with hyperglycemia (principal) | CPT/HCPCS: Q3014 ==

== ENCOUNTER 2021-11-21 14:49 | Outpatient (REF) | payer MEDICARE, SELFPAY ==
[2021-11-21 15:18] LABS: Hemoglobin 9.7 g/dl (14.0-18.0); Mean Corpuscular HGB Conc 30.3 g/dl (31.0-36.0); Mean Corpuscular Hemoglobin 27.6 pg (27.0-33.0); Mean Corpuscular Volume 90.9 fL (80.0-98.0); Mean Platelet Volume 10.6 fL (9.4-12.4); Platelet Count 100 X10*3/uL (160-400); Red Blood Count 3.52 X10*6/uL (4.60-5.80); White Blood Count 4.4 X10*3/uL (4.8-10.8)
[2021-11-21 15:47] LABS: Anion Gap 11 (12-20); Blood Urea Nitrogen 19 mg/dL (9-16); Calcium 9.3 mg/dL (8.4-10.2); Carbon Dioxide 29 mmol/L (22-29); Chloride 106 mmol/L (96-108); Estimated Glomerular Filt Rate > 60; Glucose Random 60 mg/dL (60-115); Iron 50 mcg/dL (45-160); Percent Iron Saturation 10 % (15-50); Potassium 4.5 mmol/L (3.3-5.1); Sodium 141 mmol/L (135-145); Total Iron Binding Capacity 503 mcg/dL (228-428); Unsaturated Iron Binding 453 ug/dL
[2021-11-21 16:03] LABS: TSH reflex Free T4 2.24 uIU/mL (0.32-4.0)
[2021-11-21 16:22] LABS: Folate > 20.0 ng/mL (> or = 4.0); Vitamin B12 510 pg/mL (200-900)
== END 2021-11-21 14:50 | disposition home or self-care (01) ==
LOC: HO.LAB 14:49
PROVIDERS: PCP Physician Assistant; Visit Provider Physician Assistant
DX: I85.10 Secondary esophageal varices without bleeding (principal); K74.60 Unspecified cirrhosis of liver; D50.9 Iron deficiency anemia, unspecified; E53.8 Deficiency of other specified B group vitamins; E78.5 Hyperlipidemia, unspecified
CPT/HCPCS: 36415; 80048; 82607; 82746; 83540; 84443; 85027

== ENCOUNTER 2021-12-18 10:16 | Outpatient (REF) | payer MEDICARE, SELFPAY ==
[2021-12-18 10:33] LABS: MANUAL DIFF FLAG NO
[2021-12-18 11:01] LABS: Basophils Percent Auto 0.9 % (0-2); Eosinophils Absolute Auto 0.2 X10*3/uL (0.0-0.4); Eosinophils Percent Auto 3.5 % (0-4); Hematocrit 31.8 % (42.0-52.0); Hemoglobin 9.5 g/dl (14.0-18.0); Imm Gran Abs Auto 0.02 X10*3/uL (0.00-0.03); Imm Gran Pct Auto 0.4 % (0.0-0.4); Lymphocytes Absolute Auto 0.5 X10*3/uL (1.2-4.9); Lymphocytes Percent Auto 10.5 % (20-40); Mean Corpuscular HGB Conc 29.9 g/dl (31.0-36.0); Mean Corpuscular Hemoglobin 27.1 pg (27.0-33.0); Mean Corpuscular Volume 90.6 fL (80.0-98.0); Mean Platelet Volume 10.7 fL (9.4-12.4); Monocytes Absolute Auto 0.5 X10*3/uL (0.1-1.2); Neutrophils Absolute Auto 3.4 x10*3/uL (2.0-8.3); Neutrophils Percent Auto 74.7 % (45-73); Red Blood Count 3.51 X10*6/uL (4.60-5.80); Red Cell Distribution Width 16.9 % (11.0-16.0); White Blood Count 4.6 X10*3/uL (4.8-10.8)
[2021-12-18 11:04] LABS: Platelet Count 92 X10*3/uL (160-400)
[2021-12-18 11:35] LABS: Creatinine Urine 89.63 mg/dL
[2021-12-18 11:37] LABS: Estimated Average Glucose 128 mg/dL; Hemoglobin A1c % 6.1 %
[2021-12-18 14:37] LABS: Alanine Aminotransferase 30 U/L (0-40); Albumin Level 3.8 g/dL (3.5-5.0); Alkaline Phosphatase 127 U/L (39-117); Anion Gap 15 (12-20); Aspartate Amino Transferase 40 U/L (5-37); Blood Urea Nitrogen 22 mg/dL (9-16); Calcium 9.3 mg/dL (8.4-10.2); Carbon Dioxide 23 mmol/L (22-29); Chloride 108 mmol/L (96-108); Cholesterol 142 mg/dL; Estimated Glomerular Filt Rate > 60; Glucose Fasting 159 mg/dL (60-99); HDL Cholesterol 41 mg/dL; LDL Cholesterol Calculated 62 mg/dl; Potassium 4.6 mmol/L (3.3-5.1); Sodium 141 mmol/L (135-145); Triglycerides 197 mg/dL
[2021-12-20 00:11] LABS: LDL Cholesterol Direct 58 mg/dL (<100)
== END 2021-12-18 10:17 | disposition home or self-care (01) ==
LOC: HO.LAB 10:16
PROVIDERS: Absent Provider Nurse Practitioner Gerontology; PCP Physician Assistant; Visit Provider Internal Medicine Cardiovascular Disease
DX: E11.65 Type 2 diabetes mellitus with hyperglycemia (principal); R06.09 Other forms of dyspnea
CPT/HCPCS: 36415; 80053; 80061; 82043; 83036; 83721; 85025

== ENCOUNTER → 2022-01-02 13:31 | Outpatient (BNVA) | payer MEDICARE, SELFPAY | PROVIDERS: PCP Physician Assistant; Referring Provider Physician Assistant; Visit Provider Internal Medicine Gastroenterology | DX: K58.0 Irritable bowel syndrome with diarrhea (principal); K74.60 Unspecified cirrhosis of liver; I85.10 Secondary esophageal varices without bleeding; K76.6 Portal hypertension; K31.89 Other diseases of stomach and duodenum; D36.9 Benign neoplasm, unspecified site; K57.90 Diverticulosis of intestine, part unspecified, without perforation or abscess without bleeding; K64.8 Other hemorrhoids; K62.7 Radiation proctitis; K31.7 Polyp of stomach and duodenum; K21.9 Gastro-esophageal reflux disease without esophagitis; E53.8 Deficiency of other specified B group vitamins; D50.0 Iron deficiency anemia secondary to blood loss (chronic) | CPT/HCPCS: 99212 ==

== ENCOUNTER 2022-03-20 12:51 | Outpatient (REF) | payer MEDICARE, SELFPAY | END 2022-03-20 12:52 | disposition home or self-care (01) | LOC: HO.MDS 12:51 | PROVIDERS: Visit Provider Internal Medicine | DX: D50.9 Iron deficiency anemia, unspecified (principal) | CPT/HCPCS: 96365 ==

== ENCOUNTER 2022-03-22 09:52 | Outpatient (REF) | payer MEDICARE, SELFPAY ==
[2022-03-22 10:00] LABS: MANUAL DIFF FLAG NO
[2022-03-22 10:18] LABS: Basophils Absolute Auto 0.1 X10*3/uL (0.0-0.2); Eosinophils Absolute Auto 0.2 X10*3/uL (0.0-0.4); Eosinophils Percent Auto 3.5 % (0-4); Hematocrit 30.8 % (42.0-52.0); Hemoglobin 9.2 g/dl (14.0-18.0); Imm Gran Abs Auto 0.05 X10*3/uL (0.00-0.03); Lymphocytes Absolute Auto 0.6 X10*3/uL (1.2-4.9); Mean Corpuscular HGB Conc 29.9 g/dl (31.0-36.0); Mean Corpuscular Hemoglobin 25.8 pg (27.0-33.0); Mean Corpuscular Volume 86.5 fL (80.0-98.0); Mean Platelet Volume 10.9 fL (9.4-12.4); Monocytes Absolute Auto 0.7 X10*3/uL (0.1-1.2); Monocytes Percent Auto 14.1 % (2-11); Neutrophils Absolute Auto 3.4 x10*3/uL (2.0-8.3); Neutrophils Percent Auto 68.4 % (45-73); Red Blood Count 3.56 X10*6/uL (4.60-5.80); White Blood Count 4.9 X10*3/uL (4.8-10.8)
[2022-03-22 10:39] LABS: Estimated Average Glucose 137 mg/dL; Hemoglobin A1c % 6.4 %
[2022-03-22 10:40] LABS: Platelet Count 96 X10*3/uL (160-400)
[2022-03-22 10:45] LABS: Alanine Aminotransferase 18 U/L (0-40); Albumin Level 3.8 g/dL (3.5-5.0); Alkaline Phosphatase 103 U/L (39-117); Anion Gap 13 (12-20); Aspartate Amino Transferase 27 U/L (5-37); Blood Urea Nitrogen 20 mg/dL (9-16); Calcium 8.7 mg/dL (8.4-10.2); Carbon Dioxide 26 mmol/L (22-29); Chloride 108 mmol/L (96-108); Cholesterol 130 mg/dL; Estimated Glomerular Filt Rate > 60; Glucose Random 100 mg/dL (60-115); HDL Cholesterol 37 mg/dL; LDL Cholesterol Calculated 62 mg/dl; Potassium 4.5 mmol/L (3.3-5.1); Sodium 142 mmol/L (135-145); Total Protein 6.7 g/dL (6.5-8.0); Triglycerides 159 mg/dL
== END 2022-03-22 09:53 | disposition home or self-care (01) ==
LOC: HO.LAB 09:52
PROVIDERS: PCP Physician Assistant; Visit Provider Internal Medicine Cardiovascular Disease
DX: R06.09 Other forms of dyspnea (principal)
CPT/HCPCS: 36415; 80053; 80061; 83036; 85025

== ENCOUNTER 2022-03-27 13:53 | Outpatient (REF) | payer MEDICARE, SELFPAY | END 2022-03-27 13:54 | disposition home or self-care (01) | LOC: HO.MDS 13:53 | PROVIDERS: Visit Provider Internal Medicine | DX: D50.9 Iron deficiency anemia, unspecified (principal) | CPT/HCPCS: 96365; J2916 ==

== ENCOUNTER 2022-04-03 13:53 | Outpatient (REF) | payer MEDICARE, SELFPAY | END 2022-04-03 13:54 | disposition home or self-care (01) | LOC: HO.MDS 13:53 | PROVIDERS: Visit Provider Internal Medicine | DX: D50.9 Iron deficiency anemia, unspecified (principal) | CPT/HCPCS: 96365; J2916 ==

== ENCOUNTER 2022-04-07 13:47 | Emergency (ER) | payer MEDICARE, SELFPAY ==
[2022-04-07 13:48] VITALS: BP 111/51; PULSE 67; RESP 18; TEMP 36.5; O2SAT 96; BMI 31.8
== END 2022-04-07 17:03 | disposition left against medical advice (07) ==
PROVIDERS: Emergency Provider Emergency Medicine; PCP Physician Assistant
DX: K08.89 Other specified disorders of teeth and supporting structures (principal)
CPT/HCPCS: 99281

== ENCOUNTER 2022-05-28 13:32 | Outpatient (REF) | payer MEDICARE, SELFPAY | END 2022-05-28 13:33 | disposition home or self-care (01) | LOC: HO.MDS 13:32 | PROVIDERS: Visit Provider Internal Medicine | DX: D50.9 Iron deficiency anemia, unspecified (principal) | CPT/HCPCS: 96365; J1756 ==

== ENCOUNTER 2022-06-08 08:15 | Emergency (ER) | payer MEDICARE, SELFPAY ==
--- NOTE | ~2022-06-08 | XR_ITS ---
EXAMINATION: XR CHEST CLINICAL INFORMATION: Shortness of breath COMPARISON: Chest x-ray March 14, 2020 TECHNIQUE: Frontal view of the chest was obtained. FINDINGS: Cardiac silhouette is enlarged. Patient is status post TAVR. The lungs are adequately aerated. Prominence of the central pulmonary vasculature and interstitial markings. No gross lobar consolidation. No large pleural effusion. No pneumothorax. XR/XR chest 1V IMPRESSION: Radiographs suggest mild CHF. Superimposed viral process is not excluded. Clinical correlation recommended.
--- NOTE | 2022-06-08 08:25 | ED_ITS ---
HPI - General Adult General Chief complaint: Dyspnea Stated complaint: FALL,SOB Time Seen by Provider: 06/08/22 08:18 Source: patient and EMS Mode of arrival: EMS History of Present Illness HPI narrative: 77-year-old male with a past medical history of HTN, HLD, DM,obesity, ANUJA on CPAP, CAD s/p PCI, GI bleed, prostate CA s/p chemo and radiation complicated by radiation proctitis, iron deficiency anemia on IV iron infusions, s/p ?Bilateral TAVR at [facility] on Thursday on Plavix, presenting to the ED via EMS complaining of SOB and mechanical slip and fall out of bed this a.m. Patient states woke up, took his CPAP off, felt SOB and weak, and slid out of bed falling on buttock, denies head trauma or LOC. was unable to get himself up due to weakness/SOB. Per EMS patient was bradycardic in the 30s and hypoxic in the 80s on their arrival, increased to 97% on non-rebreather. EMS reports patient was mildly confused on arrival, back at baseline now with O2 therapy. Patient reports SOB and RLE pain s/p procedure. Denies chest pain, lightheadedness/dizziness, abdominal pain, nausea/vomiting, headache Onset (ago): hour(s) Related Data Home Medications Medication Instructions Recorded Confirmed torsemide 20 mg tablet 20 mg PO DAILY 07/16/20 05/30/22 aspirin 81 mg tablet,delayed 81 mg PO DAILY 08/14/20 05/30/22 release cyanocobalamin (vitamin B-12) 1,000 mcg PO DAILY 08/14/20 05/30/22 1,000 mcg lozenges ferrous sulfate 325 mg (65 mg 325 mg PO BID 10/17/20 05/30/22 iron) tablet folic acid 1 mg tablet 1 mg PO DAILY 10/17/20 05/30/22 metoprolol tartrate 100 mg tablet 100 mg PO DAILY 01/30/22 05/30/22 ezetimibe 10 mg tablet (Zetia) 10 mg PO DAILY 02/26/22 05/30/22 Previous Rx's Medication Instructions Recorded dicyclomine 20 mg tablet 20 mg PO TID #90 tabs 10/21/21 tamsulosin 0.4 mg capsule 0.4 mg PO DAILY 90 days #90 caps 10/23/21 flash glucose sensor (FreeStyle 1 ea topical Q2W #2 ea 11/08/21 Marleni 14 Day Sensor kit) blood pressure test kit-large #1 ea 11/21/21 Novolog Flexpen U-100 Insulin 100 2 - 25 unit (0.02 - 0.25 mL) 01/27/22 unit/mL (3 mL) subcutaneous subcut QID 90 days #45 mL (insulin aspart U-100) dulaglutide 0.75 mg/0.5 mL 0.75 mg (0.5 mL) subcut QWEEK 30 01/27/22 subcutaneous pen injector days #2.5 mL (Trulicity) fluticasone propionate 50 1 spray intranasal BID #48 grams 01/28/22 mcg/actuation nasal spray,suspension gabapentin 400 mg capsule 400 mg PO TID #90 caps 03/03/22 loratadine 10 mg tablet 10 mg PO DAILY 90 days #90 tabs 03/11/22 metformin 1,000 mg tablet 1,000 mg PO BID 90 days #180 tabs 03/18/22 sucralfate 1 gram tablet 1 g PO BID 90 days #180 tabs 04/21/22 alprazolam 0.5 mg tablet 0.5 mg PO BID PRN Anxiety #30 tabs 04/23/22 omeprazole 20 mg capsule,delayed 20 mg PO BID #180 caps 05/05/22 release atorvastatin 80 mg tablet 80 mg PO DAILY #90 tabs 05/06/22 insulin degludec 200 unit/mL (3 65 unit (0.325 mL) subcut DAILY #9 05/08/22 mL) subcutaneous pen (Tresiba mL FlexTouch U-200 insulin) pen needle, diabetic 32 gauge x #150 ea 05/08/22 (BD Gifty 2nd Gen Pen Needle) Allergies Allergy/AdvReac Type Severity Reaction Status Date / Time lisinopril [From ZESTRIL] Allergy Severe UNABLE TO Verified 02/26/22 16:30 BREATH dextran 40 [DEXTRAN 40] Allergy Intermediate tachycardia Verified 02/26/22 16:30 latex [LATEX] Allergy Mild BLISTERS Verified 02/26/22 16:30 cyclobenzaprine Allergy Unknown Unknown Verified 02/26/22 16:30 [From Flexeril] egg Allergy Unknown unknown Verified 02/26/22 16:30 Iodinated Contrast Media Allergy Unknown UNKNOWN Verified 02/26/22 16:30 [CONTRAST,IV] tizanidine [From Zanaflex] Allergy Unknown Hallucinati Verified 02/26/22 16:30 ons pregabalin AdvReac Unknown hallucinati Verified 02/26/22 16:30 ons Review of Systems Review of Systems: Constitutional: No Fever, No Chills, No Night Sweats, + Fatigue, No Malaise ENT/Mouth: No Ear Pain, No Nasal Congestion, No Hoarseness, No sore throat, No Rhinorrhea Eyes: No Eye Pain, No Swelling, No Redness, No Vision Changes Cardiovascular: No Chest Pain, + SOB, + Dyspnea on Exertion, No Orthopnea, No Edema, No Palpitations Respiratory: No Cough, No Sputum, No Dyspnea Gastrointestinal: No Nausea, No Vomiting, No Diarrhea, No Constipation, No Abdominal pain Genitourinary: No irregular bleeding, No Dysuria, No Hematuria, No Urinary Flow Changes, No Hesitancy Musculoskeletal: No joint pain, No Myalgias, No Joint Swelling Skin: No Skin Lesions, No rash Neuro: + Weakness, No Numbness, No Paresthesias, No Loss of Consciousness, No Dizziness, No Headache Yes all other systems are reviewed and are negative Constitutional: Constitutional: Reports as per HPI Neurologic: Denies Abnormal speech present [facility] Past Medical History Attestation statement: The following information was validated with the patient. Medical History Aortic stenosis CAD (coronary artery disease) Chronic fatigue COVID-19 vaccine series completed Diabetes type 2, uncontrolled Diabetic nephropathy associated with type 2 diabetes mellitus Diabetic 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 associated with type 2 diabetes mellitus DMII (diabetes mellitus, type 2) KOEHLER (dyspnea on exertion) Dyslipidemia Esophageal varices without bleeding GERD (gastroesophageal reflux disease) HTN (hypertension) Hypertension IBS (irritable colon syndrome) Iron deficiency anemia FCI (current) use of insulin On beta kayy at home ANUJA on CPAP Polyneuropathy Prostate cancer Spinal stenosis Varices of esophagus determined by endoscopy Surgical History H/O cataract extraction History of colonoscopy History of heart artery stent History of surgery History of surgery History of transurethral resection of prostate Hx of colonoscopy Hx of endoscopy Hx of esophagogastroduodenoscopy Family History Family History Father CVD (cardiovascular disease) Past heart attack Mother CVD (cardiovascular disease) Brain cancer Heart problem Daughter Breast cancer Sister Breast cancer Son Alive and well Family/Other Myocardial infarction Liver cancer Social History Social History Household Members: Spouse Housing: House Are you a primary care director to a significant other at home: No Do you presently have visiting nurse or other home services: No Alcohol intake: former Patient Tobacco Use Status: Never used Tobacco e-Cigarette/Vaping Use: Never Used Second Hand Smoke Exposure: No Use of substances other than those prescribed or required for medical reasons: No Advance Directives: No Advance Directives Information Provided: Yes service: No Current occupational status: retired Cognitive needs: No Hearing needs: No Vision needs: Yes Physical Exam ED Vital Signs: Vital Signs - 24 hr 06/08/22 09:11 06/08/22 09:45 Pulse Rate 32 L 33 L Respiratory Rate 18 20 Blood Pressure 123/32 L 126/56 L Pulse Oximetry 96 96 Oxygen Delivery Method Non-Rebreather Mask Non-Rebreather Mask Oxygen Flow Rate 15 BMI result Body Mass Index 31.4 Const General: cooperative and no acute distress Nutritional Appearance: obese Orientation/consciousness: patient oriented x3 Limitations: no limitations HENMT Head: Yes normal to inspection and Yes atraumatic Ears: hearing grossly normal bilaterally General nose exam: Normal external nose present Face and sinus: Yes normal facial exam Eyes General: appearance normal, both eyes and all related structures EOM: EOMs intact bilaterally Neck Neck: Yes normal visual inspection and Yes no meningeal signs Resp Effort & Inspection: normal respiratory effort and no respiratory distress Auscultation: clear to auscultation bilaterally and wheezes expiratory wheezes and lower bilaterally Cardio Rate: bradycardic Heart sounds: S1 normal heart sound present and S2 normal heart sound present Peripheral pulses: Peripheral pulses 2+ throughout GI Inspection: Yes normal to inspection Palpation (GI): Soft to palpation, nontender, no guarding and not rigid Skin Other: + bilateral groin healing ecchymosis at procedure site with dressings intact Rashes: no rashes Neuro General: patient oriented x3, tone normal, moves all extremities, no meningeal signs, no focal motor deficits and CN's II-XI intact bilaterally Cranial nerves: Yes CN's II-XII intact bilaterally Cognition (Neuro): normal cognition Speech: No Abnormal speech present Motor exam (neuro): 5/5 motor strength present throughout Extrem General: Yes normal to inspection and Yes no pedal edema Course Course Course Narrative: -reviewed patient's records from [facility], obtain TAVR on 06/03, discharged same day. -914--patient's EKG showing complete heart block. Case discussed with [facility] rdiology Dr. Hurley who recommended transfer. External pacers placed. [facility] transfer line paged [phone]--patient accepted to [facility] CCU, spoke with electrical sign wirer Dr. Duran -lactic acid elevated to 8.6 > will give 500 cc of IVF, concern for fluid overload -3--noted leukocytosis of 25.3, H&H stable, metabolic acidosis with an anion gap of 25, CO2 18 & EMMANUEL with BUN of 41 and creatinine of 3.78 > infection now suspected >> empiric IV Zosyn and Lasix ordered -+ transaminitis. Troponin is elevated to 749.9 likely from renal dysfunction, patient denies chest pain, and BNP of 2384 XR chest 1V IMPRESSION: Radiographs suggest mild CHF. Superimposed viral process is not excluded. Clinical correlation recommended. -6259--ALS on scene, will push Lasix and hang Zosyn prior to patient's departure ? Medical Decision Making [facility] Narrative Medical decision making narrative: 77-year-old male with a past medical history of HTN, HLD, DM,obesity, ANUJA on CPAP, CAD s/p PCI, GI bleed, prostate CA s/p chemo and radiation complicated by radiation proctitis, iron deficiency anemia on IV iron infusions, s/p ?Bilateral TAVR at [facility] on Thursday on Plavix, presenting to the ED via EMS complaining of SOB and mechanical slip and fall out of bed this a.m. Per EMS patient was bradycardic in the 30s and hypoxic in the 80s on their arrival, increased to 97% on non-rebreather. On exam bradycardic to 35, hypoxic 89% on 4 L nasal cannula, improved to 97 on non-rebreather, lungs with mild bibasilar exp wheeze, abdomen soft/nontender, no pedal edema. Concern for ACS vs PE vs CHF vs anemia Plan: EKG, labs, lactic/blood cultures, CXR, CT PE, admission Medical Records Medical records reviewed: Yes I reviewed the patient's medical records. Lab Data Lab results reviewed: Yes I reviewed the patient's lab results. Result diagrams: 06/08/22 09:21 06/08/22 09:21 Labs: Lab Results 06/08/22 06/08/22 06/08/22 Range/Units 09:21 09:21 09:21 WBC 25.3 H (4.8-10.8) X10*3/uL RBC 3.89 L (4.60-5.80) X10*6/uL Hgb 10.4 L (14.0-18.0) g/dl Hct 34.7 L (42.0-52.0) % MCV 89.2 (80.0-98.0) fL MCH 26.7 L (27.0-33.0) pg MCHC 30.0 L (31.0-36.0) g/dl RDW 17.8 H (11.0-16.0) % Plt Count 134 L D (160-400) X10*3/uL MPV 12.9 H (9.4-12.4) fL Immature Gran % (Auto) 1.2 H (0.0-0.4) % Neut % (Auto) 83.2 H (45-73) % Lymph % (Auto) 3.4 L (20-40) % Phelps % (Auto) 11.4 H (2-11) % Eos % (Auto) 0.2 (0-4) % Baso % (Auto) 0.6 (0-2) % Lymph # (Auto) 0.9 L (1.2-4.9) X10*3/uL Phelps # (Auto) 2.9 H (0.1-1.2) X10*3/uL Eos # (Auto) 0.1 (0.0-0.4) X10*3/uL Baso # (Auto) 0.2 (0.0-0.2) X10*3/uL Abs Immat Gran (auto) 0.30 H (0.00-0.03) X10*3/uL Absolute Neuts (auto) 21.0 H (2.0-8.3) x10*3/uL Absolute Nucleated RBC 0.020 H (0.0-0.012) X10*3/uL Nucleated RBC % (auto) 0.1 (0.0-0.2) /100WBC PT (10.0-13.1) SEC INR (0.9-1.1) D-Dimer High Sensitivty NG/ML Sodium 141 (135-145) mmol/L Potassium 4.7 (3.3-5.1) mmol/L Chloride 103 (96-108) mmol/L Carbon Dioxide 18 L (22-29) mmol/L Anion Gap 25 H (12-20) BUN 41 H D (9-16) mg/dL Creatinine 3.78 H (0.5-1.4) mg/dL Estim Creat Clear Calc 18.1 Estimated GFR 16 Random Glucose 183 H D (60-115) mg/dL Lactic Acid (0.5-2.0) mmol/L Calcium 9.2 (8.4-10.2) mg/dL Magnesium 2.0 (1.6-2.6) mg/dL Total Bilirubin 1.7 H (0.0-1.0) mg/dL Direct Bilirubin 0.9 H (0.0-0.5) mg/dL AST 62 H (5-37) U/L ALT 58 H (0-40) U/L Alkaline Phosphatase 148 H D (39-117) U/L Total Creatine Kinase 46 (38-174) U/L Troponin I High Sens 749.9 H* (<3.5-35.0) ng/L B-Natriuretic Peptide 2384 H (<100) pg/mL Total Protein 6.7 (6.5-8.0) g/dL Albumin 3.8 (3.5-5.0) g/dL COVID-19 (MAJOR) (Negative) COVID-19 Clin Com 06/08/22 06/08/22 06/08/22 Range/Units 09:21 09:21 09:21 WBC (4.8-10.8) X10*3/uL RBC (4.60-5.80) X10*6/uL Hgb (14.0-18.0) g/dl Hct (42.0-52.0) % MCV (80.0-98.0) fL MCH (27.0-33.0) pg MCHC (31.0-36.0) g/dl RDW (11.0-16.0) % Plt Count (160-400) X10*3/uL MPV (9.4-12.4) fL Immature Gran % (Auto) (0.0-0.4) % Neut % (Auto) (45-73) % Lymph % (Auto) (20-40) % Phelps % (Auto) (2-11) % Eos % (Auto) (0-4) % Baso % (Auto) (0-2) % Lymph # (Auto) (1.2-4.9) X10*3/uL Phelps # (Auto) (0.1-1.2) X10*3/uL Eos # (Auto) (0.0-0.4) X10*3/uL Baso # (Auto) (0.0-0.2) X10*3/uL Abs Immat Gran (auto) (0.00-0.03) X10*3/uL Absolute Neuts (auto) (2.0-8.3) x10*3/uL Absolute Nucleated RBC (0.0-0.012) X10*3/uL Nucleated RBC % (auto) (0.0-0.2) /100WBC PT 14.5 H (10.0-13.1) SEC INR 1.3 H (0.9-1.1) D-Dimer High Sensitivty 620 NG/ML Sodium (135-145) mmol/L Potassium (3.3-5.1) mmol/L Chloride (96-108) mmol/L Carbon Dioxide (22-29) mmol/L Anion Gap (12-20) BUN (9-16) mg/dL Creatinine (0.5-1.4) mg/dL Estim Creat Clear Calc Estimated GFR Random Glucose (60-115) mg/dL Lactic Acid 8.6 H* (0.5-2.0) mmol/L Calcium (8.4-10.2) mg/dL Magnesium (1.6-2.6) mg/dL Total Bilirubin (0.0-1.0) mg/dL Direct Bilirubin (0.0-0.5) mg/dL AST (5-37) U/L ALT (0-40) U/L Alkaline Phosphatase (39-117) U/L Total Creatine Kinase (38-174) U/L Troponin I High Sens (<3.5-35.0) ng/L B-Natriuretic Peptide (<100) pg/mL Total Protein (6.5-8.0) g/dL Albumin (3.5-5.0) g/dL COVID-19 (MAJOR) Negative (Negative) COVID-19 Clin Com See Note ECG Data Attestation: I personally reviewed and interpreted this ECG as follows: Prior ECG tracings: available for review Interpretation: EKG showing complete heart block at a rate of 33. QRS 160. QTC 437. No STEMI. Critical Care Time Critical Care Time Critical Care Time: Yes Total Critical Care Time: 40 Attestation: I have personally provided critical care time exclusive of time spent on separately billable procedures. Time includes review of lab data, radiology results, discussion with consultants, and monitoring for potential decompensation. Intervention performed as documented. Discharge Plan Discharge Clinical Impression: Complete heart block, Hypoxia, EMMANUEL (acute kidney injury), Metabolic acidosis Patient Disposition: [facility] Transfer Details: Accepted to [facility] CCU by Dr. Duran Prescriptions: No Action dicyclomine 20 mg tablet 20 mg PO TID Qty: 90 4RF tamsulosin 0.4 mg capsule 0.4 mg PO DAILY 90 Days Qty: 90 2RF Trulicity 0.75 mg/0.5 mL pen injector 0.75 mg subcut QWEEK 30 Days Qty: 2.5 4RF insulin aspart U-100 [Novolog Flexpen U-100 Insulin] 100 unit/mL (3 mL) insulin pen 2 - 25 unit subcut QID 90 Days Qty: 45 4RF fluticasone propionate 50 mcg/actuation spray,suspension 1 spray intranasal BID Qty: 48 3RF gabapentin 400 mg capsule 400 mg PO TID Qty: 90 5RF loratadine 10 mg tablet 10 mg PO DAILY 90 Days Qty: 90 3RF metformin 1,000 mg tablet 1,000 mg PO BID 90 Days Qty: 180 3RF sucralfate 1 gram tablet 1 g PO BID 90 Days Qty: 180 1RF alprazolam 0.5 mg tablet 0.5 mg PO BID PRN (Reason: Anxiety) Qty: 30 1RF omeprazole 20 mg capsule,delayed release(DR/EC) 20 mg PO BID Qty: 180 2RF atorvastatin 80 mg tablet 80 mg PO DAILY Qty: 90 0RF Tresiba FlexTouch U-200 200 unit/mL (3 mL) insulin pen 65 unit subcut DAILY Qty: 9 5RF (DME) pen needle, diabetic [BD Gifty 2nd Gen Pen Needle] 32 gauge x 5/32 needle See Rx Instructions .MEDSUPPLY Qty: 150 5RF Rx Instructions: 4 times a day aspirin 81 mg Tablet,Delayed Release (Dr/Ec) 81 mg PO DAILY cyanocobalamin (vitamin B-12) 1,000 mcg Lozenge 1,000 mcg PO DAILY ezetimibe [Zetia] 10 mg tablet 10 mg PO DAILY torsemide 20 mg tablet 20 mg PO DAILY folic acid 1 mg tablet 1 mg PO DAILY ferrous sulfate 325 mg (65 mg iron) tablet 325 mg PO BID (DME) blood pressure test kit-large Kit See Rx Instructions .Route Qty: 1 0RF Rx Instructions: As directed metoprolol tartrate 100 mg tablet 100 mg PO DAILY FreeStyle Marleni 14 Day Sensor Kit 1 ea topical Q2W Qty: 2 11RF Sepsis Bolus Exclusion Sepsis Bolus Exclusion CHF/Renal Failure This patient met severe sepsis criteria due to the following condition(s):: Lactate>=4mmol/L In my clinical judgement the administration of 30 ml/kg of crystalloid would be detrimental to this patient due to the patient's following conditions:: NYHA class III or IV Heart Failure(symptoms with low exertion or rest), Stage III or IV Chronic Kidney Disease (GFR<30) and Concern for fluid overload Replace the 30 mls/kg with (*zero amount not acceptable): Crystalloids amount given in mls: (rate must be at least 150cc/hr): 500 Colloids amount given in mls:: 0
--- NOTE | 2022-06-08 08:37 | ECG_ITS ---
Test Reason : SOB Blood Pressure : / mmHG Vent. Rate : 033 BPM Atrial Rate : 077 BPM P-R Int : 000 ms QRS Dur : 160 ms QT Int : 640 ms P-R-T Axes : 049 -53 070 degrees QTc Int : 473 ms Sinus rhythm with complete heart block and Idioventricular rhythm Left axis deviation Non-specific intra-ventricular conduction block Minimal voltage criteria for LVH, may be normal variant ( Cornish product ) Possible Lateral infarct , age undetermined Abnormal ECG When compared with ECG of 27-NOV-2019 05:09, Idioventricular rhythm has replaced Sinus rhythm Vent. rate has decreased BY 39 BPM Referred By: Mandi Fuentes Electronically Signed By:DORCAS RAMOS
[2022-06-08 09:11] VITALS: BP 123/32; BP 128/58; PULSE 30; PULSE 32; RESP 18; O2SAT 96; BMI 31.4
[2022-06-08 09:34] LABS: MANUAL DIFF FLAG NO
[2022-06-08 09:36] LABS: Basophils Absolute Auto 0.2 X10*3/uL (0.0-0.2); Basophils Percent Auto 0.6 % (0-2); Eosinophils Absolute Auto 0.1 X10*3/uL (0.0-0.4); Eosinophils Percent Auto 0.2 % (0-4); Hematocrit 34.7 % (42.0-52.0); Hemoglobin 10.4 g/dl (14.0-18.0); Imm Gran Pct Auto 1.2 % (0.0-0.4); Lymphocytes Absolute Auto 0.9 X10*3/uL (1.2-4.9); Lymphocytes Percent Auto 3.4 % (20-40); Mean Corpuscular Hemoglobin 26.7 pg (27.0-33.0); Mean Corpuscular Volume 89.2 fL (80.0-98.0); Mean Platelet Volume 12.9 fL (9.4-12.4); Monocytes Absolute Auto 2.9 X10*3/uL (0.1-1.2); Monocytes Percent Auto 11.4 % (2-11); NRBC Pct Auto 0.1 /100WBC (0.0-0.2); Neutrophils Percent Auto 83.2 % (45-73); Platelet Count 134 X10*3/uL (160-400); Red Blood Count 3.89 X10*6/uL (4.60-5.80); Red Cell Distribution Width 17.8 % (11.0-16.0); SCAN SMEAR FLAG 1; White Blood Count 25.3 X10*3/uL (4.8-10.8)
[2022-06-08 09:43] LABS: INTERNATIONAL NORM RATIO 1.3 (0.9-1.1); Prothrombin Time 14.5 SEC (10.0-13.1)
[2022-06-08 09:45] VITALS: BP 126/56; PULSE 33; RESP 20; O2SAT 96
[2022-06-08 09:45] LABS: D Dimer High Sensitivity 620 NG/ML
--- NOTE | 2022-06-08 09:46 | PC.NURSE ---
Pt casey in 30s, reports SOB, on NRB. SKin pink warm and dry. Breathing easy, unlabored. Speaking full sentences. Denies dizziness or fatigue. Pacer pads in place for precaution. BP stable. Recent aortic valve replacement, bruising to b/l groin worse on right side. Attempting to place second IV at this time. Potential [facility] transfer
[2022-06-08 09:55] LABS: Alanine Aminotransferase 58 U/L (0-40); Albumin Level 3.8 g/dL (3.5-5.0); Alkaline Phosphatase 148 U/L (39-117); Anion Gap 25 (12-20); Aspartate Amino Transferase 62 U/L (5-37); Bilirubin Direct 0.9 mg/dL (0.0-0.5); Bilirubin Total 1.7 mg/dL (0.0-1.0); Blood Urea Nitrogen 41 mg/dL (9-16); Calcium 9.2 mg/dL (8.4-10.2); Carbon Dioxide 18 mmol/L (22-29); Chloride 103 mmol/L (96-108); Creatinine Clr Calc Pharmacy 18.1; Estimated Glomerular Filt Rate 16; Glucose Random 183 mg/dL (60-115); Potassium 4.7 mmol/L (3.3-5.1); Sodium 141 mmol/L (135-145); Total Protein 6.7 g/dL (6.5-8.0)
[2022-06-08 09:58] LABS: Lactic Acid 8.6 mmol/L (0.5-2.0)
[2022-06-08 10:02] LABS: B Type Natriuretic Peptide 2384 pg/mL (<100); Troponin-I High Sensitivity 749.9 ng/L (<3.5-35.0)
[2022-06-08 10:07] LABS: COVID-19 Test Negative (Negative); IDNOW Serial# 55D5AD1C
[2022-06-08] MEDS: Furosemide 40 MG/4 ML VIAL IVPUSH (10:43)
[2022-06-08] MEDS: Piperacillin Sodium/Tazobactam 3.375 GM in 0.9 % Sodium Chloride 50 ML IV (10:44)
--- NOTE | 2022-06-08 11:05 | PC.NURSE ---
Call from RN at [facility], stated report was given shortly after pt arrived however RN called and no answer initially, report was then called a second time approx 10 min after pt left
[2022-06-08 11:32] LABS: Reflex Lactate? Lactic Acid Added
== END 2022-06-08 11:05 | disposition short-term general hospital (02) ==
PROVIDERS: Physician Assistant; Emergency Provider Internal Medicine
DX: I44.2 Atrioventricular block, complete (principal); R09.02 Hypoxemia; R06.02 Shortness of breath; E87.2 Acidosis; I25.10 Atherosclerotic heart disease of native coronary artery without angina pectoris; Z20.822 Contact with and (suspected) exposure to COVID-19; Z79.899 Other long term (current) drug therapy
CPT/HCPCS: 71045; 80048; 80076; 82550; 83605; 83735; 83880; 84484; 85025; 85379; 85610; 87040; 87205; 87635; 93005; 96365; 96375; 99285; J1940; J2543

== ENCOUNTER 2022-06-17 15:36 | Inpatient (IN) | payer MEDICARE, SELFPAY ==
--- NOTE | ~2022-06-17 | CT_ITS ---
EXAMINATION: CT ABDOMEN AND PELVIS WITHOUT CONTRAST CLINICAL INFORMATION: Lower abdominal pain COMPARISON: CT abdomen pelvis 05/20/2017 TECHNIQUE: Multidetector volumetric imaging was performed from the superior aspect of the liver through the pubic symphysis. Sagittal and coronal reformatted images were obtained on the technologist's workstation. This CT examination was performed using dose optimization techniques as appropriate, variously including the following: *Automated exposure control *Adjustment of mA and/or kV according to patient size (this includes techniques or standardized protocols for targeted exams where dose is matched to indication/reason for exam; i.e. extremities or head) *Use of iterative reconstruction technique DLP: 803 mGy-cm FINDINGS: LUNG BASES: Trace right basilar pleural effusion. Minimal basilar atelectasis bilaterally. Prominent heart size. Status post TAVR. Pacer leads seen in the right atrium extending into the right ventricle. LIVER, GALLBLADDER, AND BILIARY TREE: Cirrhotic liver morphology with nodular contour and hypertrophy left liver lobe. No appreciable liver lesion. No biliary ductal dilation. There are a few calcified stones in the gallbladder near the gallbladder neck. No gallbladder wall thickening. No pericholecystic fluid. Mild nonspecific fat stranding about the gallbladder and sofía hepatis. PANCREAS: No pancreatic lesion or ductal dilation. Minimal fat stranding about the pancreatic head. SPLEEN: Enlarged measuring approximately 18.2 cm in craniocaudal length. No splenic lesion. ADRENAL GLANDS: Unremarkable. KIDNEYS AND URETERS: The kidneys are normal in size, shape, and attenuation. No hydronephrosis, hydroureter, or calculi seen. No perinephric stranding. BLADDER: Decompressed with Meier catheter in place. Small amount of iatrogenic gas. Bladder wall appears diffusely thickened-limited assessment. GASTROINTESTINAL TRACT: The small and large bowel are unremarkable. The appendix is unremarkable. No intra-abdominal free air. Small volume ascites. Mild diffuse mesenteric edema. ABDOMINAL WALL: Small fat-containing inguinal hernias left slightly more prominent than right. LYMPH NODES: No lymphadenopathy. VASCULAR: Moderate vascular calcifications. Normal caliber abdominal aorta. Dilated main portal vein measuring approximately 1.9 cm in diameter. Splenorenal shunt and perisplenic collateral veins. PELVIC VISCERA: Prostate brachytherapy seeds. OSSEOUS STRUCTURES: No acute fracture or suspicious osseous lesion. Interspinous fixation device at L4-L5. Disc degenerative changes most advanced at L4-L5 and L5-S1. CT/CT abdomen pelvis wo IV con IMPRESSION: 1. No acute intra-abdominal process identified. 2. Cirrhosis and evidence of portal hypertension with splenomegaly, small volume ascites, diffuse mild mesenteric edema, perisplenic varices and splenorenal shunt. 3. Cholelithiasis as on prior. No specific CT evidence of acute cholecystitis.
[2022-06-17 15:57] VITALS: BP 136/50; PULSE 74; RESP 26; TEMP 37.1; O2SAT 97; BMI 31.4
--- NOTE | 2022-06-17 16:13 | ED_ITS ---
HPI - Male Genitourinary General Chief complaint: Urogenital-Male Stated complaint: catheter issues; in pain Time Seen by Provider: 06/17/22 16:07 Source: patient and family Mode of arrival: ambulatory Limitations: no limitations History of Present Illness HPI Narrative: 77-year-old male with a past medical history of??HTN, HLD, DM, obesity, ANUJA on CPAP, CAD s/p PCI, GI bleed, prostate CA s/p chemo and radiation complicated by radiation proctitis, iron deficiency anemia on IV iron infusions, s/p TAVR at [facility] on 06/03/22, pacemaker in place s/p complete heart block presenting to the ED today for sam catheter problem. The patient reports that since changing his sam catheter bag 2 hours ago, he has not passed urine and he has noticed blood in the bag. He states that there was urine in the bag when he changed it 2 hours ago. He reports having some lower abdominal pressure and pain as well as some mild distension. He described the pain as intermittent and spasm-like. He has had the sam in place for about a week since undergoing a TAVR procedure. He has a follow-up appointment with urology on this week. He denies any additional medical complaints at this time including chest pain, shortness of breath, back pain, testicular pain, n/v/d, dizziness, or headache. He is on Aspirin, no other anticoagulants. Related Data Home Medications Medication Instructions Recorded Confirmed torsemide 20 mg tablet 20 mg PO DAILY 07/16/20 05/30/22 aspirin 81 mg tablet,delayed 81 mg PO DAILY 08/14/20 05/30/22 release cyanocobalamin (vitamin B-12) 1,000 mcg PO DAILY 08/14/20 05/30/22 1,000 mcg lozenges ferrous sulfate 325 mg (65 mg 325 mg PO BID 10/17/20 05/30/22 iron) tablet folic acid 1 mg tablet 1 mg PO DAILY 10/17/20 05/30/22 metoprolol tartrate 100 mg tablet 100 mg PO DAILY 01/30/22 05/30/22 ezetimibe 10 mg tablet (Zetia) 10 mg PO DAILY 02/26/22 05/30/22 Previous Rx's Medication Instructions Recorded dicyclomine 20 mg tablet 20 mg PO TID #90 tabs 10/21/21 tamsulosin 0.4 mg capsule 0.4 mg PO DAILY 90 days #90 caps 10/23/21 flash glucose sensor (FreeStyle 1 ea topical Q2W #2 ea 11/08/21 Marleni 14 Day Sensor kit) blood pressure test kit-large #1 ea 11/21/21 Novolog Flexpen U-100 Insulin 100 2 - 25 unit (0.02 - 0.25 mL) 01/27/22 unit/mL (3 mL) subcutaneous subcut QID 90 days #45 mL (insulin aspart U-100) dulaglutide 0.75 mg/0.5 mL 0.75 mg (0.5 mL) subcut QWEEK 30 01/27/22 subcutaneous pen injector days #2.5 mL (Trulicity) fluticasone propionate 50 1 spray intranasal BID #48 grams 01/28/22 mcg/actuation nasal spray,suspension gabapentin 400 mg capsule 400 mg PO TID #90 caps 03/03/22 loratadine 10 mg tablet 10 mg PO DAILY 90 days #90 tabs 03/11/22 metformin 1,000 mg tablet 1,000 mg PO BID 90 days #180 tabs 03/18/22 sucralfate 1 gram tablet 1 g PO BID 90 days #180 tabs 04/21/22 alprazolam 0.5 mg tablet 0.5 mg PO BID PRN Anxiety #30 tabs 04/23/22 omeprazole 20 mg capsule,delayed 20 mg PO BID #180 caps 05/05/22 release atorvastatin 80 mg tablet 80 mg PO DAILY #90 tabs 05/06/22 insulin degludec 200 unit/mL (3 65 unit (0.325 mL) subcut DAILY #9 05/08/22 mL) subcutaneous pen (Tresiba mL FlexTouch U-200 insulin) pen needle, diabetic 32 gauge x #150 ea 05/08/22 (BD Gifty 2nd Gen Pen Needle) Allergies Allergy/AdvReac Type Severity Reaction Status Date / Time lisinopril [From ZESTRIL] Allergy Severe UNABLE TO Verified 02/26/22 16:30 BREATH dextran 40 [DEXTRAN 40] Allergy Intermediate tachycardia Verified 02/26/22 16:30 latex [LATEX] Allergy Mild BLISTERS Verified 02/26/22 16:30 cyclobenzaprine Allergy Unknown Unknown Verified 02/26/22 16:30 [From Flexeril] egg Allergy Unknown unknown Verified 02/26/22 16:30 Iodinated Contrast Media Allergy Unknown UNKNOWN Verified 02/26/22 16:30 [CONTRAST,IV] tizanidine [From Zanaflex] Allergy Unknown Hallucinati Verified 02/26/22 16:30 ons pregabalin AdvReac Unknown hallucinati Verified 02/26/22 16:30 ons Review of Systems Review of Systems: Constitutional : No Weight loss, No Fever, No Chills, No Fatigue, No Malaise ENT/Mouth : No sore throat, No Rhinorrhea Eyes: No Eye Pain, No Swelling, No Redness Cardiovascular : No Chest Pain, No SOB, No Dyspnea on Exertion, No Orthopnea, No Edema, No Palpitations Respiratory : No Cough, No Sputum, No Wheezing Gastrointestinal : No Nausea, No Vomiting, No Diarrhea, No Constipation, No abdominal Pain, No Hematochezia, No Melena Genitourinary : No Dysuria, No Urinary Frequency, + Hematuria Musculoskeletal : No joint pain, No Myalgias, No Joint Swelling Skin : No Skin Lesions, No rash Neuro : No Weakness, No Numbness, No Dizziness, No Headache Psych : No Anxiety/Panic, No Depression All other systems reviewed and are negative Yes all other systems are reviewed and are negative [facility] Past Medical History Attestation statement: The following information was validated with the patient. Source: old records reviewed and nursing notes reviewed Medical History Aortic stenosis CAD (coronary artery disease) Chronic fatigue COVID-19 vaccine series completed Diabetes type 2, uncontrolled Diabetic nephropathy associated with type 2 diabetes mellitus Diabetic 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 associated with type 2 diabetes mellitus DMII (diabetes mellitus, type 2) KOEHLER (dyspnea on exertion) Dyslipidemia Esophageal varices without bleeding GERD (gastroesophageal reflux disease) HTN (hypertension) Hypertension IBS (irritable colon syndrome) Iron deficiency anemia alf (current) use of insulin On beta kayy at home ANUJA on CPAP Polyneuropathy Prostate cancer Spinal stenosis Varices of esophagus determined by endoscopy Surgical History H/O cataract extraction History of colonoscopy History of heart artery stent History of surgery History of surgery History of transurethral resection of prostate Hx of colonoscopy Hx of endoscopy Hx of esophagogastroduodenoscopy Family History Family History Father CVD (cardiovascular disease) Past heart attack Mother CVD (cardiovascular disease) Brain cancer Heart problem Daughter Breast cancer Sister Breast cancer Son Alive and well Family/Other Myocardial infarction Liver cancer Social History Social History Household Members: Spouse Housing: House Are you a primary care assistant to a significant other at home: No Do you presently have visiting nurse or other home services: No Alcohol intake: former Patient Tobacco Use Status: Never used Tobacco e-Cigarette/Vaping Use: Never Used Second Hand Smoke Exposure: No Advance Directives: No Advance Directives Information Provided: No service: No Current occupational status: retired Cognitive needs: No Hearing needs: No Vision needs: Yes Physical Exam Vital Signs: Vital Signs: Last Vital Signs Temp 98.7 F 06/17/22 15:57 Pulse 67 06/17/22 17:29 Resp 26 H 06/17/22 15:57 BP 136/50 L 06/17/22 15:57 Pulse Ox 97 06/17/22 17:29 O2 Del Method 06/17/22 17:29 BMI result Body Mass Index 31.4 VSS Appearance: Alert.? Oriented X3.? No acute distress.?Uncomfortable appearing. Head: Normocephalic, atraumatic, no step-offs or deformities Eyes: Pupils equal, round and reactive to light.? Neck: Normal inspection.? Neck supple.? CVS: Normal heart rate and rhythm. Murmur noted.? Pulses normal.? Respiratory: No respiratory distress.? Breath sounds normal.? Abdomen: Soft and nontender.? : Normal appearing external genitalia. Bright red bllood noted in the sam catheter bag. Skin: Skin warm and dry.? Normal skin color.? Normal skin turgor.? Extremities: No lower extremity edema.? No calf ttp. 5/5 strength to bilateral upper and lower extremities + ecchymosis to right groin area. Neuro: Oriented X 3.? No motor deficit.? No sensory deficit. CN 2-12 intact Course Reevaluation(s) Reevaluation #1: Patient noted to have normocytic anemia on CBC, 8.9/29.7 decreased from 10.4/34.7 on 06/08/22 chornically low plts however lower today 90, plan to repeat H&H. Chemistry appears to be at patient's baseline. BNP 420 although decreased from 2384 on 06/08/22. Awaiting results of CT scan. Patient's sam flushed, urine return noted immediately. Time: 18:17 Reevaluation #2: CT abd/pelvis shows no acute intra-abdominal process. Bladder wall is diffusely thickened, patient may have bloody cystitis. Pending reapeat CBC Time: 19:48 Reevaluation #3: Dr. Cummins- Keep NPO repeat H&H in 4-6 hours, if needed cystoscopy will be done. Would like patient admitted to hospitalist team due to comorbidities. Time: 20:33 Additional Reevaluation(s): + OBS down trending H&H --> type and screen ordered hematuria and lower GIB. He reports he has seen streaks of blood in stool recently crenshaw in stool and when he wipes. IVP pantoprazole ordered at this time. Patient will be admitted to the hospital for further intervention and tx. MDM - Male Genitourinary MDM Narrative Medical decision making narrative: 16:15 77 y/o male with a PMHx of HTN, HLD, DM,obesity, ANUJA on CPAP, CAD s/p PCI, GI bleed, prostate CA s/p chemo and radiation complicated by radiation proctitis, iron deficiency anemia on IV iron infusions, s/p ?Bilateral TAVR at [facility] presenting with sam catheter problem, lower abdominal pain, and hematuria. PE remarkable for lower abdominal tenderness, blood in sam bag. Suspect displaced sam with bleeding due to irritation at this time, bladder spasms vs. cystitis. Low suspicion for acute bladder or urethral injury, obstructive lesion, UTI, EMMANUEL at this time. Plan to obtain basic labs, UA, CT abd/pelvis to look for causes of obstruction. Medical Records Attestation: I reviewed the patient's medical records. Lab Data Attestation: I reviewed the patient's lab results. Result diagrams: 06/17/22 19:45 06/17/22 17:41 Labs: Lab Results 06/17/22 06/17/22 06/17/22 Range/Units 17:41 17:46 17:46 WBC 5.8 (4.8-10.8) X10*3/uL RBC 3.38 L (4.60-5.80) X10*6/uL Hgb 8.9 L (14.0-18.0) g/dl Hct 29.7 L (42.0-52.0) % MCV 87.9 (80.0-98.0) fL MCH 26.3 L (27.0-33.0) pg MCHC 30.0 L (31.0-36.0) g/dl RDW 17.6 H (11.0-16.0) % Plt Count 109 L (160-400) X10*3/uL MPV 11.4 (9.4-12.4) fL Immature Gran % (Auto) 2.1 H (0.0-0.4) % Neut % (Auto) 75.8 H (45-73) % Lymph % (Auto) 7.7 L (20-40) % [place] % (Auto) 11.0 (2-11) % Eos % (Auto) 2.9 (0-4) % Baso % (Auto) 0.5 (0-2) % Lymph # (Auto) 0.5 L (1.2-4.9) X10*3/uL [place] # (Auto) 0.6 (0.1-1.2) X10*3/uL Eos # (Auto) 0.2 (0.0-0.4) X10*3/uL Baso # (Auto) 0.0 (0.0-0.2) X10*3/uL Abs Immat Gran (auto) 0.12 H (0.00-0.03) X10*3/uL Absolute Neuts (auto) 4.4 (2.0-8.3) x10*3/uL Absolute Nucleated RBC 0.000 (0.0-0.012) X10*3/uL Nucleated RBC % (auto) 0.0 (0.0-0.2) /100WBC Sodium 142 (135-145) mmol/L Potassium 4.5 (3.3-5.1) mmol/L Chloride 109 H (96-108) mmol/L Carbon Dioxide 21 L (22-29) mmol/L Anion Gap 17 (12-20) BUN 21 H (9-16) mg/dL Creatinine 1.20 (0.5-1.4) mg/dL Estim Creat Clear Calc 57.2 Estimated GFR 58 Random Glucose 197 H (60-115) mg/dL Calcium 8.2 L D (8.4-10.2) mg/dL Total Bilirubin 1.1 H (0.0-1.0) mg/dL AST 47 H (5-37) U/L ALT 40 (0-40) U/L Alkaline Phosphatase 218 H D (39-117) U/L B-Natriuretic Peptide 420 H (<100) pg/mL Total Protein 6.6 (6.5-8.0) g/dL Albumin 3.5 (3.5-5.0) g/dL 06/17/22 Range/Units 19:45 WBC 6.4 (4.8-10.8) X10*3/uL RBC 3.06 L (4.60-5.80) X10*6/uL Hgb 8.4 L (14.0-18.0) g/dl Hct 27.1 L (42.0-52.0) % MCV 88.6 (80.0-98.0) fL MCH 27.5 (27.0-33.0) pg MCHC 31.0 (31.0-36.0) g/dl RDW 17.5 H (11.0-16.0) % Plt Count 92 L (160-400) X10*3/uL MPV 10.5 (9.4-12.4) fL Immature Gran % (Auto) 1.1 H (0.0-0.4) % Neut % (Auto) 81.0 H (45-73) % Lymph % (Auto) 5.2 L (20-40) % [place] % (Auto) 10.2 (2-11) % Eos % (Auto) 1.9 (0-4) % Baso % (Auto) 0.6 (0-2) % Lymph # (Auto) 0.3 L (1.2-4.9) X10*3/uL [place] # (Auto) 0.7 (0.1-1.2) X10*3/uL Eos # (Auto) 0.1 (0.0-0.4) X10*3/uL Baso # (Auto) 0.0 (0.0-0.2) X10*3/uL Abs Immat Gran (auto) 0.07 H (0.00-0.03) X10*3/uL Absolute Neuts (auto) 5.2 (2.0-8.3) x10*3/uL Absolute Nucleated RBC 0.000 (0.0-0.012) X10*3/uL Nucleated RBC % (auto) 0.0 (0.0-0.2) /100WBC Sodium (135-145) mmol/L Potassium (3.3-5.1) mmol/L Chloride (96-108) mmol/L Carbon Dioxide (22-29) mmol/L Anion Gap (12-20) BUN (9-16) mg/dL Creatinine (0.5-1.4) mg/dL Estim Creat Clear Calc Estimated GFR Random Glucose (60-115) mg/dL Calcium (8.4-10.2) mg/dL Total Bilirubin (0.0-1.0) mg/dL AST (5-37) U/L ALT (0-40) U/L Alkaline Phosphatase (39-117) U/L B-Natriuretic Peptide (<100) pg/mL Total Protein (6.5-8.0) g/dL Albumin (3.5-5.0) g/dL Critical Care Time Critical Care Time Critical Care Time: Yes Total Critical Care Time: 45 Attestation: I attest to this time spent taking care of the patient, obtaining history, physical, reviewing labs, imaging, speaking to my attending, speaking to specialist. Discharge Plan Discharge Clinical Impression: Hematuria, Abdominal pain, Acute lower gastrointestinal bleeding Patient Disposition: Admitted As Inpatient Prescriptions: No Action dicyclomine 20 mg tablet 20 mg PO TID Qty: 90 4RF tamsulosin 0.4 mg capsule 0.4 mg PO DAILY 90 Days Qty: 90 2RF Trulicity 0.75 mg/0.5 mL pen injector 0.75 mg subcut QWEEK 30 Days Qty: 2.5 4RF insulin aspart U-100 [Novolog Flexpen U-100 Insulin] 100 unit/mL (3 mL) insulin pen 2 - 25 unit subcut QID 90 Days Qty: 45 4RF fluticasone propionate 50 mcg/actuation spray,suspension 1 spray intranasal BID Qty: 48 3RF gabapentin 400 mg capsule 400 mg PO TID Qty: 90 5RF loratadine 10 mg tablet 10 mg PO DAILY 90 Days Qty: 90 3RF metformin 1,000 mg tablet 1,000 mg PO BID 90 Days Qty: 180 3RF sucralfate 1 gram tablet 1 g PO BID 90 Days Qty: 180 1RF alprazolam 0.5 mg tablet 0.5 mg PO BID PRN (Reason: Anxiety) Qty: 30 1RF omeprazole 20 mg capsule,delayed release(DR/EC) 20 mg PO BID Qty: 180 2RF atorvastatin 80 mg tablet 80 mg PO DAILY Qty: 90 0RF Tresiba FlexTouch U-200 200 unit/mL (3 mL) insulin pen 65 unit subcut DAILY Qty: 9 5RF (DME) pen needle, diabetic [BD Gifty 2nd Gen Pen Needle] 32 gauge x 5/32 needle See Rx Instructions .MEDSUPPLY Qty: 150 5RF Rx Instructions: 4 times a day aspirin 81 mg Tablet,Delayed Release (Dr/Ec) 81 mg PO DAILY cyanocobalamin (vitamin B-12) 1,000 mcg Lozenge 1,000 mcg PO DAILY ezetimibe [Zetia] 10 mg tablet 10 mg PO DAILY torsemide 20 mg tablet 20 mg PO DAILY folic acid 1 mg tablet 1 mg PO DAILY ferrous sulfate 325 mg (65 mg iron) tablet 325 mg PO BID (DME) blood pressure test kit-large Kit See Rx Instructions .Route Qty: 1 0RF Rx Instructions: As directed metoprolol tartrate 100 mg tablet 100 mg PO DAILY FreeStyle Marleni 14 Day Sensor Kit 1 ea topical Q2W Qty: 2 11RF
[2022-06-17] MEDS: Morphine Sulfate 4 MG/ML CARTRIDGE IVPUSH ×2 (17:25→22:29)
[2022-06-17 17:29] VITALS: PULSE 67; O2SAT 97
--- NOTE | 2022-06-17 17:30 | PC.NURSE ---
Henna RN & Chely Rojas RN to bedside to administer pain medications and perform manual bladder irrigation. Pt stated I'm just gonna rip this thing out! I need some pain medication! I can't take it anymore! Pt reassured and given pain medications. Manual bladder irrigation performed without issue. No resistance or clots noted. Urine dark red in color without clots or visible sediment. Pt visibly more comfortable and confirms decreased pain and abdominal distention. Provider (Opal) aware. Pt to have CT scan performed. Catheter reconnected to leg bag and draining without obstruction.
[2022-06-17 17:49] LABS: MANUAL DIFF FLAG NO
[2022-06-17 17:58] LABS: Basophils Percent Auto 0.5 % (0-2); Eosinophils Absolute Auto 0.2 X10*3/uL (0.0-0.4); Eosinophils Percent Auto 2.9 % (0-4); Hematocrit 29.7 % (42.0-52.0); Hemoglobin 8.9 g/dl (14.0-18.0); Imm Gran Abs Auto 0.12 X10*3/uL (0.00-0.03); Imm Gran Pct Auto 2.1 % (0.0-0.4); Lymphocytes Absolute Auto 0.5 X10*3/uL (1.2-4.9); Lymphocytes Percent Auto 7.7 % (20-40); Mean Corpuscular Hemoglobin 26.3 pg (27.0-33.0); Mean Corpuscular Volume 87.9 fL (80.0-98.0); Mean Platelet Volume 11.4 fL (9.4-12.4); Monocytes Absolute Auto 0.6 X10*3/uL (0.1-1.2); Neutrophils Absolute Auto 4.4 x10*3/uL (2.0-8.3); Neutrophils Percent Auto 75.8 % (45-73); Platelet Count 109 X10*3/uL (160-400); Red Blood Count 3.38 X10*6/uL (4.60-5.80); Red Cell Distribution Width 17.6 % (11.0-16.0); White Blood Count 5.8 X10*3/uL (4.8-10.8)
[2022-06-17 18:04] LABS: Alanine Aminotransferase 40 U/L (0-40); Albumin Level 3.5 g/dL (3.5-5.0); Alkaline Phosphatase 218 U/L (39-117); Anion Gap 17 (12-20); Aspartate Amino Transferase 47 U/L (5-37); Bilirubin Total 1.1 mg/dL (0.0-1.0); Blood Urea Nitrogen 21 mg/dL (9-16); Calcium 8.2 mg/dL (8.4-10.2); Carbon Dioxide 21 mmol/L (22-29); Chloride 109 mmol/L (96-108); Creatinine Clr Calc Pharmacy 57.2; Estimated Glomerular Filt Rate 58; Glucose Random 197 mg/dL (60-115); Potassium 4.5 mmol/L (3.3-5.1); Sodium 142 mmol/L (135-145); Total Protein 6.6 g/dL (6.5-8.0)
[2022-06-17 18:10] LABS: B Type Natriuretic Peptide 420 pg/mL (<100)
[2022-06-17 19:51] LABS: MANUAL DIFF FLAG NO
[2022-06-17 19:53] LABS: Basophils Percent Auto 0.6 % (0-2); Eosinophils Absolute Auto 0.1 X10*3/uL (0.0-0.4); Eosinophils Percent Auto 1.9 % (0-4); Hematocrit 27.1 % (42.0-52.0); Hemoglobin 8.4 g/dl (14.0-18.0); Imm Gran Abs Auto 0.07 X10*3/uL (0.00-0.03); Imm Gran Pct Auto 1.1 % (0.0-0.4); Lymphocytes Absolute Auto 0.3 X10*3/uL (1.2-4.9); Lymphocytes Percent Auto 5.2 % (20-40); Mean Corpuscular Hemoglobin 27.5 pg (27.0-33.0); Mean Corpuscular Volume 88.6 fL (80.0-98.0); Mean Platelet Volume 10.5 fL (9.4-12.4); Monocytes Absolute Auto 0.7 X10*3/uL (0.1-1.2); Monocytes Percent Auto 10.2 % (2-11); Neutrophils Absolute Auto 5.2 x10*3/uL (2.0-8.3); Red Blood Count 3.06 X10*6/uL (4.60-5.80); Red Cell Distribution Width 17.5 % (11.0-16.0); White Blood Count 6.4 X10*3/uL (4.8-10.8)
[2022-06-17 19:54] LABS: Platelet Count 92 X10*3/uL (160-400)
[2022-06-17 20:34] LABS: Glucose, Whole Blood 165 mg/dL (60-115)
[2022-06-17 20:34] LABS: OBS Int Ctl Valid YES; OBS1 POSITIVE (NEGATIVE)
[2022-06-17 20:37] LABS: Appearance Urine Cloudy; Color Urine RED; Glucose Urine UA Negative (Negative); Leukocyte Esterase Urine Moderate (2+) (Negative); Nitrite Urine Positive (Negative); PH 6.5 (5.0-9.0); UMIC TRIGGER UACC YES; Urine Blood Large (3+) (Negative); Urine Ketones Trace mg/dL (Negative); Urine Protein 300 (3+) mg/dL (Neg-Trace)
[2022-06-17 20:39] LABS: UACC Culture Trigger YES
[2022-06-17 20:40] LABS: Bacteria Urine 1+ (None Seen); Hyaline Casts Urine 0-2 /LPF (0-2); RBC Urine >20 /HPF (0-2); Squamous Epithelial Cell Urine 0-2 /HPF (0-2)
--- NOTE | 2022-06-17 20:44 | ECG_ITS ---
Test Reason : WEAKNESS Blood Pressure : / mmHG Vent. Rate : 072 BPM Atrial Rate : 072 BPM P-R Int : 236 ms QRS Dur : 104 ms QT Int : 412 ms P-R-T Axes : 048 -39 128 degrees QTc Int : 451 ms Atrial-sensed ventricular-paced rhythm with prolonged AV conduction Abnormal ECG When compared with ECG of 08-JUN-2022 09:21, Electronic ventricular pacemaker has replaced Idioventricular rhythm Vent. rate has increased BY 39 BPM Referred By: Frank Joseph Electronically Signed By:DORCAS RAMOS
--- NOTE | 2022-06-17 21:26 | PHA.MEDREC ---
Pharmacy Consult ? Medication Reconciliation Pharmacy has completed the medication reconciliation. Patient was told to stop plavix. Notes his metoprolol was changed to 50mg and his torsemide was changed to lasix. Jc
[2022-06-17] MEDS: Pantoprazole Sodium 40 MG/10 ML VIAL IVPUSH (21:38)
[2022-06-17] MEDS: cefTRIAXone sodium 1 GM in 0.9 % Sodium Chloride 50 ML IV (21:39)
--- NOTE | 2022-06-17 21:52 | P.CNUR_ITS ---
History of Present Illness Consult details Consult date: 06/17/22 Narrative: 77-year-old male with a past medical history of??HTN, HLD, DM, obesity, ANUJA on CPAP, CAD s/p PCI, GI bleed, prostate CA s/p chemo and radiation complicated by radiation proctitis, iron deficiency anemia on IV iron infusions, s/p TAVR at [facility] on 06/03/22, pacemaker in place s/p complete heart block. Called to evaluate due to gross hematuria, sam in place. Per ED records, he has had the sam in place for about a week since undergoing a TAVR procedure. He is on Aspirin, no other anticoagulants.? Worsening hematuria with clots. Discussed with the patient cysto/clot evacuation. Review of Systems Review of Systems: 10 point ROS negative other than stated in [facility] Past Medical History Medical History Aortic stenosis CAD (coronary artery disease) Chronic fatigue COVID-19 vaccine series completed Diabetes type 2, uncontrolled Diabetic nephropathy associated with type 2 diabetes mellitus Diabetic 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 associated with type 2 diabetes mellitus DMII (diabetes mellitus, type 2) KOEHLER (dyspnea on exertion) Dyslipidemia Esophageal varices without bleeding GERD (gastroesophageal reflux disease) HTN (hypertension) Hypertension IBS (irritable colon syndrome) Iron deficiency anemia penitentiary (current) use of insulin On beta kayy at home ANUJA on CPAP Polyneuropathy Prostate cancer Spinal stenosis Varices of esophagus determined by endoscopy Family History Family History Father CVD (cardiovascular disease) Past heart attack Mother CVD (cardiovascular disease) Brain cancer Heart problem Daughter Breast cancer Sister Breast cancer Son Alive and well Family/Other Myocardial infarction Liver cancer Surgical History Surgical History H/O cataract extraction History of colonoscopy History of heart artery stent History of surgery History of surgery History of transurethral resection of prostate Hx of colonoscopy Hx of endoscopy Hx of esophagogastroduodenoscopy Social History Social History Household Members: Spouse Housing: House Are you a primary daycare manager to a significant other at home: No Do you presently have visiting nurse or other home services: No Alcohol intake: never Patient Tobacco Use Status: Never used Tobacco e-Cigarette/Vaping Use: Never Used Second Hand Smoke Exposure: No Use of substances other than those prescribed or required for medical reasons: No Are you DNR?: No Advance Directives: No Advance Directives Information Provided: No service: No Current occupational status: retired Cognitive needs: No Hearing needs: No Vision needs: Yes Meds Allergies Allergy/AdvReac Type Severity Reaction Status Date / Time lisinopril [From ZESTRIL] Allergy Severe UNABLE TO Verified 02/26/22 16:30 BREATH dextran 40 [DEXTRAN 40] Allergy Intermediate tachycardia Verified 02/26/22 16:30 latex [LATEX] Allergy Mild BLISTERS Verified 02/26/22 16:30 cyclobenzaprine Allergy Unknown Unknown Verified 02/26/22 16:30 [From Flexeril] egg Allergy Unknown unknown Verified 02/26/22 16:30 Iodinated Contrast Media Allergy Unknown UNKNOWN Verified 02/26/22 16:30 [CONTRAST,IV] tizanidine [From Zanaflex] Allergy Unknown Hallucinati Verified 02/26/22 16:30 ons pregabalin AdvReac Unknown hallucinati Verified 02/26/22 16:30 ons Active Medications: Current Medications Pharmacy Consult (Consult Rx Perform Med Rec) 1 each MISCELLANE ONCE PRN PRN Reason: Consult order Home Medications Medication Instructions Recorded Confirmed Last Taken Type aspirin 81 mg tablet,delayed 81 mg PO DAILY 08/14/20 06/18/22 Unknown History release ferrous sulfate 325 mg (65 mg 325 mg PO DAILY 10/17/20 06/17/22 Unknown History iron) tablet ezetimibe 10 mg tablet (Zetia) 10 mg PO BEDTIME 02/26/22 06/17/22 Unknown History atorvastatin 80 mg tablet 80 mg PO BEDTIME 06/17/22 06/17/22 Unknown History dulaglutide 0.75 mg/0.5 mL 0.75 mg subcut TU 06/17/22 06/17/22 Unknown History subcutaneous pen injector (Trulicity) furosemide 20 mg tablet 1 tab PO DAILY 06/17/22 06/17/22 Unknown History insulin aspart U-100 100 unit/mL 2 - 25 unit subcut TIDAC 06/17/22 06/17/22 Unknown History (3 mL) subcutaneous pen (Novolog Flexpen U-100 Insulin aspart) insulin degludec 200 unit/mL (3 65 unit subcut BEDTIME 06/17/22 06/17/22 Unknown History mL) subcutaneous pen (Tresiba FlexTouch U-200 insulin) metoprolol succinate 50 mg 1 tab PO DAILY 06/17/22 06/17/22 Unknown History tablet,extended release 24 hr clopidogrel 75 mg tablet 1 tab PO DAILY 06/18/22 Unknown History Physical Exam Vital Signs: Vital Signs: Last Vital Signs Temp 98.7 F 06/17/22 15:57 Pulse 67 06/17/22 17:29 Resp 26 H 06/17/22 15:57 BP 136/50 L 06/17/22 15:57 Pulse Ox 97 06/17/22 17:29 O2 Del Method 06/17/22 17:29 BMI result Body Mass Index 31.4 Const: General: cooperative and healthy appearing Orientation/consciousness: patient oriented x3 HEENT: Head: Yes normocephalic and Yes atraumatic Eyes: Conjunctivae: conjunctivae normal Neck: Neck: Yes trachea midline Chest: Chest palpation & inspection: normal inspection of the chest Resp: Effort & Inspection: normal respiratory effort Cardio: Rate: regular rate GI: Palpation (GI): Firmness to palpation present (GI) and Tenderness to palpation present (GI) : Other: sam in place/CBI hematuria Penis: normal penis Scrotum: scrotum normal Skin: General skin exam: dry skin Neuro: General: patient oriented x3 Psych: Appearance: grossly normal Results Labs Result diagrams: 06/18/22 06:25 06/18/22 06:25 Labs: Abnormal lab results 06/17/22 06/17/22 06/17/22 Range/Units 17:41 17:46 17:46 RBC 3.38 L (4.60-5.80) X10*6/uL Hgb 8.9 L (14.0-18.0) g/dl Hct 29.7 L (42.0-52.0) % MCH 26.3 L (27.0-33.0) pg MCHC 30.0 L (31.0-36.0) g/dl RDW 17.6 H (11.0-16.0) % Plt Count 109 L (160-400) X10*3/uL Immature Gran % (Auto) 2.1 H (0.0-0.4) % Neut % (Auto) 75.8 H (45-73) % Lymph % (Auto) 7.7 L (20-40) % Lymph # (Auto) 0.5 L (1.2-4.9) X10*3/uL Abs Immat Gran (auto) 0.12 H (0.00-0.03) X10*3/uL Chloride 109 H (96-108) mmol/L Carbon Dioxide 21 L (22-29) mmol/L BUN 21 H (9-16) mg/dL POC Glucose (60-115) mg/dL Random Glucose 197 H (60-115) mg/dL Calcium 8.2 L D (8.4-10.2) mg/dL Total Bilirubin 1.1 H (0.0-1.0) mg/dL AST 47 H (5-37) U/L Alkaline Phosphatase 218 H D (39-117) U/L B-Natriuretic Peptide 420 H (<100) pg/mL Urine Protein (Neg-Trace) mg/dL Urine Blood (Negative) Urine Nitrite (Negative) Ur Leukocyte Esterase (Negative) Urine RBC (0-2) /HPF Urine WBC (0-5) /HPF Crossmatch 06/17/22 06/17/22 06/17/22 Range/Units 19:45 20:16 20:24 RBC 3.06 L (4.60-5.80) X10*6/uL Hgb 8.4 L (14.0-18.0) g/dl Hct 27.1 L (42.0-52.0) % MCH (27.0-33.0) pg MCHC (31.0-36.0) g/dl RDW 17.5 H (11.0-16.0) % Plt Count 92 L (160-400) X10*3/uL Immature Gran % (Auto) 1.1 H (0.0-0.4) % Neut % (Auto) 81.0 H (45-73) % Lymph % (Auto) 5.2 L (20-40) % Lymph # (Auto) 0.3 L (1.2-4.9) X10*3/uL Abs Immat Gran (auto) 0.07 H (0.00-0.03) X10*3/uL Chloride (96-108) mmol/L Carbon Dioxide (22-29) mmol/L BUN (9-16) mg/dL POC Glucose (60-115) mg/dL Random Glucose (60-115) mg/dL Calcium (8.4-10.2) mg/dL Total Bilirubin (0.0-1.0) mg/dL AST (5-37) U/L Alkaline Phosphatase (39-117) U/L B-Natriuretic Peptide (<100) pg/mL Urine Protein 300 (3+) H (Neg-Trace) mg/dL Urine Blood Large (3+) H (Negative) Urine Nitrite Positive H (Negative) Ur Leukocyte Esterase Moderate (2+) H (Negative) Urine RBC >20 H (0-2) /HPF Urine WBC 6-10 H (0-5) /HPF Crossmatch See Detail 06/17/22 Range/Units 20:30 RBC (4.60-5.80) X10*6/uL Hgb (14.0-18.0) g/dl Hct (42.0-52.0) % MCH (27.0-33.0) pg MCHC (31.0-36.0) g/dl RDW (11.0-16.0) % Plt Count (160-400) X10*3/uL Immature Gran % (Auto) (0.0-0.4) % Neut % (Auto) (45-73) % Lymph % (Auto) (20-40) % Lymph # (Auto) (1.2-4.9) X10*3/uL Abs Immat Gran (auto) (0.00-0.03) X10*3/uL Chloride (96-108) mmol/L Carbon Dioxide (22-29) mmol/L BUN (9-16) mg/dL POC Glucose 165 H (60-115) mg/dL Random Glucose (60-115) mg/dL Calcium (8.4-10.2) mg/dL Total Bilirubin (0.0-1.0) mg/dL AST (5-37) U/L Alkaline Phosphatase (39-117) U/L B-Natriuretic Peptide (<100) pg/mL Urine Protein (Neg-Trace) mg/dL Urine Blood (Negative) Urine Nitrite (Negative) Ur Leukocyte Esterase (Negative) Urine RBC (0-2) /HPF Urine WBC (0-5) /HPF Crossmatch Short CBC 06/17/22 06/17/22 Range/Units 17:46 19:45 WBC 5.8 6.4 (4.8-10.8) X10*3/uL Hgb 8.9 L 8.4 L (14.0-18.0) g/dl Hct 29.7 L 27.1 L (42.0-52.0) % Plt Count 109 L 92 L (160-400) X10*3/uL BMP 06/17/22 17:41 Sodium 142 Potassium 4.5 Chloride 109 H Carbon Dioxide 21 L BUN 21 H Creatinine 1.20 Calcium 8.2 L D Liver Function 06/17/22 Range/Units 17:41 Total Bilirubin 1.1 H (0.0-1.0) mg/dL AST 47 H (5-37) U/L ALT 40 (0-40) U/L Alkaline Phosphatase 218 H D (39-117) U/L Albumin 3.5 (3.5-5.0) g/dL Urine 06/17/22 Range/Units 20:24 Urine Color RED Urine Appearance Cloudy Urine pH 6.5 (5.0-9.0) Ur Specific [place] 1.010 (1.005-1.025) Urine Protein 300 (3+) H (Neg-Trace) mg/dL Urine Glucose (UA) Negative (Negative) mg/dL Imaging Abdomen CT scan report/results: report reviewed and image reviewed Additional studies: Date of Service: 06/17/22 Procedure(s): CT abdomen pelvis wo IV con Accession Number(s): [id number] cc: Frank Joseph~ EXAMINATION: CT ABDOMEN AND PELVIS WITHOUT CONTRAST? CLINICAL INFORMATION: Lower abdominal pain? COMPARISON: CT abdomen pelvis 05/20/2017? TECHNIQUE: Multidetector volumetric imaging was performed from the superior aspect of the liver through the pubic symphysis. Sagittal and coronal reformatted images were obtained on the technologist's workstation.? This CT examination was performed using dose optimization techniques as appropriate, variously including the following: *Automated exposure control *Adjustment of mA and/or kV according to patient size (this includes techniques or standardized protocols for targeted exams where dose is matched to indication/reason for exam; i.e. extremities or head) *Use of iterative reconstruction technique DLP: 803 mGy-cm FINDINGS: LUNG BASES: Trace right basilar pleural effusion. Minimal basilar atelectasis bilaterally. Prominent heart size. Status post TAVR. Pacer leads seen in the right atrium extending into the right ventricle.? LIVER, GALLBLADDER, AND BILIARY TREE: Cirrhotic liver morphology with nodular contour and hypertrophy left liver lobe. No appreciable liver lesion. No biliary ductal dilation. There are a few calcified stones in the gallbladder near the gallbladder neck. No gallbladder wall thickening. No pericholecystic fluid. Mild nonspecific fat stranding about the gallbladder and sofía hepatis.? PANCREAS: No pancreatic lesion or ductal dilation. Minimal fat stranding about the pancreatic head.? SPLEEN: Enlarged measuring approximately 18.2 cm in craniocaudal length. No splenic lesion.? ADRENAL GLANDS: Unremarkable.? KIDNEYS AND URETERS: The kidneys are normal in size, shape, and attenuation. No hydronephrosis, hydroureter, or calculi seen. No perinephric stranding. ? BLADDER: Decompressed with Sam catheter in place. Small amount of iatrogenic gas. Bladder wall appears diffusely thickened-limited assessment.? GASTROINTESTINAL TRACT: The small and large bowel are unremarkable. The appendix is unremarkable.? No intra-abdominal free air. Small volume ascites. Mild diffuse mesenteric edema. ABDOMINAL WALL: Small fat-containing inguinal hernias left slightly more prominent than right.? LYMPH NODES: No lymphadenopathy. VASCULAR: Moderate vascular calcifications. Normal caliber abdominal aorta. Dilated main portal vein measuring approximately 1.9 cm in diameter. Splenorenal shunt and perisplenic collateral veins. PELVIC VISCERA: Prostate brachytherapy seeds. ? OSSEOUS STRUCTURES: No acute fracture or suspicious osseous lesion. Interspinous fixation device at L4-L5. Disc degenerative changes most advanced at L4-L5 and L5-S1.? CT/CT abdomen pelvis wo IV con IMPRESSION: ? 1. No acute intra-abdominal process identified. 2. Cirrhosis and evidence of portal hypertension with splenomegaly, small volume ascites, diffuse mild mesenteric edema, perisplenic varices and splenorenal shunt. 3. Cholelithiasis as on prior. No specific CT evidence of acute cholecystitis. Date of Service: 10/16/21 Procedure(s): US abdomen complete Accession Number(s): [id number] cc: Arsenio Burns MD~ EXAMINATION: US ABDOMEN COMPLETE CLINICAL INFORMATION: Unspecified cirrhosis of liver. COMPARISON: Ultrasound abdomen complete 02/25/2021. Limited abdominal ultrasound 09/19/2020. X-ray abdomen KUB 03/14/2020. MRI abdomen 01/12/2020. TECHNIQUE: Real-time imaging of the abdominal viscera. FINDINGS: PANCREAS: The head of the pancreas is homogeneous in echotexture. The body and the tail of the pancreas are not visualized. ABDOMINAL AORTA: The proximal, mid, and distal segments are normal in caliber. INFERIOR VENA CAVA: Visualized portions are normal. LIVER: There is trace free fluid adjacent to the liver. The liver contour is normal. Liver is diffusely echogenic. No focal hepatic lesion. There is no intrahepatic biliary duct dilatation seen. Normal hepatopedal flow seen in the middle portal vein. The portal vein may be enlarged. GALLBLADDER: The gallbladder is physiologically distended. Multiple mobile gallstones are present. No evidence of pericholecystic fluid. COMMON BILE DUCT: Normal in caliber measuring 0.6 cm in diameter. RIGHT KIDNEY:? No hydronephrosis or renal calculi. The kidney measures 13 cm in maximum dimension. There is an echogenic upper pole measuring 0.9 x 0.6 x 0.7 cm suggestive of a small AML. LEFT KIDNEY: No hydronephrosis or renal calculi. The kidney measures 13.1 cm in maximum dimension. There is an anechoic cyst in the midpole measuring 1.7 x 1.0 x 1.8 cm. SPLEEN: There are small prominent vessels seen in the splenic hilum, question splenic varices. The spleen measures 18.9 cm in maximum dimension. FREE FLUID: Trace free fluid around the liver. ADDITIONAL FINDING: Suspect splenic varices at the hilum. US/US abdomen complete IMPRESSION: Trace free fluid adjacent to the liver. Hepatic steatosis without focal lesion. ? Visualized pancreatic head is unremarkable. The rest of pancreas is not visualized due to overlying gas. ? 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 Left renal cyst midpole ? Suspect splenic varices and hilum. Slightly prominent middle portal vein, however, still hepatopedal flow maintained. ? ? Assessment and Plan (1) Hematuria: Status: Acute (2) Urinary retention: Status: Acute (3) History of prostate cancer: Status: Acute Plan Continue sam Monitor Hb/Hct OR for clot evacuation Procedures Date of Service Date of Service: 07/18/22
[2022-06-17 21:53] VITALS: BP 128/49; PULSE 72; RESP 17; TEMP 36.9; O2SAT 94
[2022-06-17 23:10] VITALS: BP 146/56; PULSE 75; RESP 16; TEMP 36.9
--- NOTE | 2022-06-17 23:21 | PC.NURSE ---
Assumed care of pt. at 1900. Pt. resting in room at that time. 23:00 pt. c/o severe pain in the penile area. Bladder scan showed over 600mL of urine in the bladder. Order obtained for 3-way continuous bladder irrigation. 3-way bladder now in place draining light red fluids. Blood hung at 23:10 per orders. Pt. currently resting in bed. No apparent distress noted.
[2022-06-17 23:26] VITALS: BP 140/56; PULSE 74; RESP 20; TEMP 37.1
[2022-06-18] VITALS (20 sets, daily range): BP systolic 105–148; BP diastolic 47–72; PULSE 68–87; RESP 16–18; TEMP 36.7–37.2; O2SAT 92–98; BMI 31.6
--- NOTE | 2022-06-18 00:02 | PC.NURSE ---
repeat CBC ordered at 2345, not to be drawn until blood transfusion is complete per RN.
--- NOTE | 2022-06-18 00:07 | P.HPHOSP_ITS ---
History of Present Illness Date of Service: 06/18/22 Chief Complaint: abd pain This is a 77-year-old male with past medical history of severe aortic stenosis status post TAVR on 06/02, CAD, history of prostate cancer, complete heart block status post pacemaker on 06/02, type 2 diabetes, HLD, history of esophageal v arices without bleeding, GERD, HTN, IBS, presents to the hospital with complaints of abdominal pain and urinary retention. Patient reports that he underwent TAVR and pacemaker placement at [facility] and after that they placed a Sam catheter according to reports from [facility], pt's stay was complicated by hematuria follwoing difficult sam cath placement. it appears that pt also had urinary retention due to hx of prostate cancer and a dilation was done on 06/08 with difficult insertion of sam cath with sig clots requiring regular irrigation. Pt was discharged on 06/13 from [facility] with clear urine and plan for op follow up and VNA to flush cath regularly. he reports that he was doing well up until the day of presentation when he started having lower abdominal pain that he describes as 10/10, with significant pressure in the bladder, and feeling that he cannot empty his bladder. He reports that there was some small amount of urine in the Sam bag but not significant. He also noted blood in the urine. He denies having seen any clots. He reports no headache, no change in vision, no shortness of breath, no dizziness, no chest pain, no nausea or vomiting, no diarrhea but has head co nstipation, he reports no lower extremity edema. Patient also reports that he has been having constipation, and today when he wiped he had spots of blood on the toilet paper. Denies any epigastric pain. On arrival to the ED patient hemodynamically stable no significant abnormal vitals Labs are significant for WBC count of 5.8, hemoglobin of 8 point now with sats dropped from 10.4 on 06/08, labs also showed BNP of 420, patient denies any shortness of breath, no chest pain. Troponin of 28. UA positive for leukocyte esterase, nitrites, WBC. Patient had significant retention while in the ED, Sam catheter was irrigated, there was noted to be blood clots, patient was discussed with Urology, and CBI was started due to the significant clots. Patient continues to have gross hematuria. Review of Systems Review of Systems: Yes all other systems are reviewed and are negative [facility] Medical History Aortic stenosis CAD (coronary artery disease) Chronic fatigue COVID-19 vaccine series completed Diabetes type 2, uncontrolled Diabetic nephropathy associated with type 2 diabetes mellitus Diabetic 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 associated with type 2 diabetes mellitus DMII (diabetes mellitus, type 2) KOEHLER (dyspnea on exertion) Dyslipidemia Esophageal varices without bleeding GERD (gastroesophageal reflux disease) HTN (hypertension) Hypertension IBS (irritable colon syndrome) Iron deficiency anemia nursing home (current) use of insulin On beta kayy at home ANUJA on CPAP Polyneuropathy Prostate cancer Spinal stenosis Varices of esophagus determined by endoscopy Family History Father CVD (cardiovascular disease) Past heart attack Mother CVD (cardiovascular disease) Brain cancer Heart problem Daughter Breast cancer Sister Breast cancer Son Alive and well Family/Other Myocardial infarction Liver cancer Surgical History H/O cataract extraction History of colonoscopy History of heart artery stent History of surgery History of surgery History of transurethral resection of prostate Hx of colonoscopy Hx of endoscopy Hx of esophagogastroduodenoscopy Social History Household Members: Spouse Housing: House Are you a primary direct care provider to a significant other at home: No Do you presently have visiting nurse or other home services: No Alcohol intake: never Patient Tobacco Use Status: Never used Tobacco e-Cigarette/Vaping Use: Never Used Second Hand Smoke Exposure: No Use of substances other than those prescribed or required for medical reasons: No Advance Directives: No Advance Directives Information Provided: No service: No Current occupational status: retired Cognitive needs: No Hearing needs: No Vision needs: Yes Meds Allergies Allergy/AdvReac Type Severity Reaction Status Date / Time lisinopril [From ZESTRIL] Allergy Severe UNABLE TO Verified 02/26/22 16:30 BREATH dextran 40 [DEXTRAN 40] Allergy Intermediate tachycardia Verified 02/26/22 16:30 latex [LATEX] Allergy Mild BLISTERS Verified 02/26/22 16:30 cyclobenzaprine Allergy Unknown Unknown Verified 02/26/22 16:30 [From Flexeril] egg Allergy Unknown unknown Verified 02/26/22 16:30 Iodinated Contrast Media Allergy Unknown UNKNOWN Verified 02/26/22 16:30 [CONTRAST,IV] tizanidine [From Zanaflex] Allergy Unknown Hallucinati Verified 02/26/22 16:30 ons pregabalin AdvReac Unknown hallucinati Verified 02/26/22 16:30 ons Active Medications: Current Medications Acetaminophen (Acetaminophen 325 Mg Tablet) 650 mg PO Q6H PRN PRN Reason: Pain, Mild (Pain Scale 1-3) Ceftriaxone Sodium 1 gm/ (Sodium Chloride) 50 mls @ 100 mls/hr IV Q24H PANFILO Ondansetron HCl (Ondansetron Hcl 4 Mg/2 Ml Vial) 4 mg IVPUSH Q8H PRN PRN Reason: Nausea and Vomiting Pharmacy Consult (Consult Rx Perform Med Rec) 1 each MISCELLANE ONCE PRN PRN Reason: Consult order Sodium Chloride (0.9 % Sodium Chloride Flush 3 Ml Syringe) 3 ml IVFLUSH QSHIFT [facility] Home Medications Medication Instructions Recorded Confirmed Last Taken Type aspirin 81 mg tablet,delayed 81 mg PO DAILY 08/14/20 06/17/22 Unknown History release ferrous sulfate 325 mg (65 mg 325 mg PO DAILY 10/17/20 06/17/22 Unknown History iron) tablet ezetimibe 10 mg tablet (Zetia) 10 mg PO BEDTIME 02/26/22 06/17/22 Unknown History atorvastatin 80 mg tablet 80 mg PO BEDTIME 06/17/22 06/17/22 Unknown History dulaglutide 0.75 mg/0.5 mL 0.75 mg subcut TU 06/17/22 06/17/22 Unknown History subcutaneous pen injector (Trulicity) furosemide 20 mg tablet 1 tab PO DAILY 06/17/22 06/17/22 Unknown History insulin aspart U-100 100 unit/mL 2 - 25 unit subcut TIDAC 06/17/22 06/17/22 Unknown History (3 mL) subcutaneous pen (Novolog Flexpen U-100 Insulin aspart) insulin degludec 200 unit/mL (3 65 unit subcut BEDTIME 06/17/22 06/17/22 Unknown History mL) subcutaneous pen (Tresiba FlexTouch U-200 insulin) metoprolol succinate 50 mg 1 tab PO DAILY 06/17/22 06/17/22 Unknown History tablet,extended release 24 hr Physical Exam Vital Signs and Narrative: Vital Signs: Last Vital Signs Temp 98.7 F 06/17/22 23:26 Pulse 80 06/18/22 00:00 Resp 18 06/18/22 00:00 BP 142/60 H 06/18/22 00:00 Pulse Ox 92 06/18/22 00:00 O2 Del Method 06/18/22 00:00 BMI result Body Mass Index 31.4 Const: General: cooperative and no acute distress Orientation/consciousness: patient oriented x3 Eyes: General: appearance normal, both eyes and all related structures Pupils: Equal, round and reactive pupils present Resp: Effort & Inspection: normal respiratory effort and able to speak in complete sentences Auscultation: clear to auscultation bilaterally Cardio: Rate: regular rate Rhythm: regular rhythm GI: Other: Abdomen is soft, but he has significant tenderness in the suprapubic region Palpation (GI): Soft to palpation Auscultation: normal bowel sounds : Other: Sam catheter showing gross hematuria Skin: General skin exam: no rashes or lesions noted Neuro: General: patient oriented x3 Cranial nerves: Yes Equal, round and reactive pupils present Cognition (Neuro): normal cognition Extrem: General: Yes normal to inspection and Yes no pedal edema Results Labs CBC and Chem 7: 06/18/22 06:25 06/17/22 17:41 Labs: Laboratory Results - last 24 hr 06/17/22 06/17/22 06/17/22 17:41 17:46 17:46 MCV 87.9 MCH 26.3 L MCHC 30.0 L RDW 17.6 H Plt Count 109 L MPV 11.4 Immature Gran % (Auto) 2.1 H Neut % (Auto) 75.8 H Lymph % (Auto) 7.7 L [place] % (Auto) 11.0 Eos % (Auto) 2.9 Baso % (Auto) 0.5 Lymph # (Auto) 0.5 L [place] # (Auto) 0.6 Eos # (Auto) 0.2 Baso # (Auto) 0.0 Abs Immat Gran (auto) 0.12 H Absolute Neuts (auto) 4.4 Absolute Nucleated RBC 0.000 Nucleated RBC % (auto) 0.0 Anion Gap 17 Estim Creat Clear Calc 57.2 Estimated GFR 58 POC Glucose Random Glucose 197 H Calcium 8.2 L D Total Bilirubin 1.1 H AST 47 H ALT 40 Alkaline Phosphatase 218 H D Troponin I High Sens 28.0 D B-Natriuretic Peptide 420 H Total Protein 6.6 Albumin 3.5 Urine Color Urine Appearance Urine pH Ur Specific Meredith Urine Protein Urine Glucose (UA) Urine Ketones Urine Blood Urine Nitrite Ur Leukocyte Esterase Urine RBC Urine WBC Ur Squamous Epith Cells Urine Bacteria Hyaline Casts Stool Occult Blood Blood Type Antibody Screen Crossmatch 06/17/22 06/17/22 06/17/22 19:45 20:16 20:16 MCV 88.6 MCH 27.5 MCHC 31.0 RDW 17.5 H Plt Count 92 L MPV 10.5 Immature Gran % (Auto) 1.1 H Neut % (Auto) 81.0 H Lymph % (Auto) 5.2 L [place] % (Auto) 10.2 Eos % (Auto) 1.9 Baso % (Auto) 0.6 Lymph # (Auto) 0.3 L [place] # (Auto) 0.7 Eos # (Auto) 0.1 Baso # (Auto) 0.0 Abs Immat Gran (auto) 0.07 H Absolute Neuts (auto) 5.2 Absolute Nucleated RBC 0.000 Nucleated RBC % (auto) 0.0 Anion Gap Estim Creat Clear Calc Estimated GFR POC Glucose Random Glucose Calcium Total Bilirubin AST ALT Alkaline Phosphatase Troponin I High Sens B-Natriuretic Peptide Total Protein Albumin Urine Color Urine Appearance Urine pH Ur Specific Meredith Urine Protein Urine Glucose (UA) Urine Ketones Urine Blood Urine Nitrite Ur Leukocyte Esterase Urine RBC Urine WBC Ur Squamous Epith Cells Urine Bacteria Hyaline Casts Stool Occult Blood POSITIVE Blood Type A Positive Antibody Screen NEGATIVE Crossmatch See Detail 06/17/22 06/17/22 20:24 20:30 MCV MCH MCHC RDW Plt Count MPV Immature Gran % (Auto) Neut % (Auto) Lymph % (Auto) [place] % (Auto) Eos % (Auto) Baso % (Auto) Lymph # (Auto) [place] # (Auto) Eos # (Auto) Baso # (Auto) Abs Immat Gran (auto) Absolute Neuts (auto) Absolute Nucleated RBC Nucleated RBC % (auto) Anion Gap Estim Creat Clear Calc Estimated GFR POC Glucose 165 H Random Glucose Calcium Total Bilirubin AST ALT Alkaline Phosphatase Troponin I High Sens B-Natriuretic Peptide Total Protein Albumin Urine Color RED Urine Appearance Cloudy Urine pH 6.5 Ur Specific Meredith 1.010 Urine Protein 300 (3+) H Urine Glucose (UA) Negative Urine Ketones Trace Urine Blood Large (3+) H Urine Nitrite Positive H Ur Leukocyte Esterase Moderate (2+) H Urine RBC >20 H Urine WBC 6-10 H Ur Squamous Epith Cells 0-2 Urine Bacteria 1+ Hyaline Casts 0-2 Stool Occult Blood Blood Type Antibody Screen Crossmatch Imaging Radiologist's Impressions: Impressions Abdomen/Pelvis CT 06/17/22 18:14 IMPRESSION: 1. No acute intra-abdominal process identified. 2. Cirrhosis and evidence of portal hypertension with splenomegaly, small volume ascites, diffuse mild mesenteric edema, perisplenic varices and splenorenal shunt. 3. Cholelithiasis as on prior. No specific CT evidence of acute cholecystitis. Assessment and Plan (1) Urinary retention: Status: Acute (2) Hematuria: Status: Acute (3) Abdominal pain: Status: Acute (4) Acute UTI: Status: Acute Plan 77-year-old male with past medical history of recent TAVR, heart block status post pacemaker placement, diabetes, hypertension, and recent urinary retention secondary to prostate cancer presents the hospital with urinary retention and gross hematuria # urinary retention - possibly secondary to hematuria with clots - Sam catheter in place, CBI started - urology consulted # hematuria - reported history of difficult Sam catheter insertion a [facility] - at this time patient on CBI - urology plan for OR in AM - Hgb stable post 1 unit of pRBC - follow H&H - hold ASA # abd pain - secondary to above - sam cath placed - pain control # BPH/hx of prostate cancer - likely cause of above complications - continue tamsulosin - urology on consult # UTI - Positive UA - IV abx - follow cultures # TAVR - stable - hold ASA # CHF - not in exacerbation - continue lasix # DM - continue home insuline - LDSSI - diabetic diet HTN - Stable - continue home antihypertensive DVT : SCDs Pt will require a minimum 2 night hospital stay for management of hematuria Quality Stroke Does the patient have a stroke diagnosis?: No VTE Prior VTE?: No VTE Risk Level:: Medical - moderate - high VTE Device Contraindication: N/A - Device Ordered VTE Drug Contraindication: Treatment Not Indicated
[2022-06-18] MEDS: Morphine Sulfate 2 MG/ML CARTRIDGE IVPUSH (01:46)
[2022-06-18 02:18] LABS: MANUAL DIFF FLAG NO
[2022-06-18 02:21] LABS: Basophils Percent Auto 0.3 % (0-2); Eosinophils Absolute Auto 0.2 X10*3/uL (0.0-0.4); Hematocrit 28.1 % (42.0-52.0); Hematocrit 28.4 % (42.0-52.0); Hemoglobin 8.6 g/dl (14.0-18.0); Imm Gran Abs Auto 0.08 X10*3/uL (0.00-0.03); Lymphocytes Absolute Auto 0.3 X10*3/uL (1.2-4.9); Mean Corpuscular HGB Conc 30.3 g/dl (31.0-36.0); Mean Corpuscular Hemoglobin 26.3 pg (27.0-33.0); Mean Corpuscular Volume 86.9 fL (80.0-98.0); Monocytes Absolute Auto 0.7 X10*3/uL (0.1-1.2); Monocytes Percent Auto 9.1 % (2-11); Neutrophils Absolute Auto 6.5 x10*3/uL (2.0-8.3); Neutrophils Percent Auto 83.6 % (45-73); Platelet Count 96 X10*3/uL (160-400); Red Blood Count 3.27 X10*6/uL (4.60-5.80); Red Cell Distribution Width 17.2 % (11.0-16.0); White Blood Count 7.8 X10*3/uL (4.8-10.8)
[2022-06-18] MEDS: Morphine Sulfate 4 MG/ML CARTRIDGE IVPUSH (04:20)
--- NOTE | 2022-06-18 05:49 | PC.NURSE ---
I assumed nursing care of Ames at 1900. At approximately 2030 the pt was writhing in pain, grasping his abdomen which was firm and distended. At that time he had a 2 way Sam with a leg bag and approximately 100cc grossly bloody urine. I bladder scanned him and found greater than 700ml in his bladder. per request Frank TAPIA I removed the Sam and placed a 3-way Sam adn began to irrigate his bladder. This resolved his severe pain and grossly bloody urine began to drain. Within thirty minutes the pt was writhing in pain, again, and the catheter was not draining. i manually irrigated the Sam and withdrew a large amount of blood clots and bloody urine. This exact sequela of events has occured 5 or 6 times throughout the night - contantly irrigating with the 3 way sam and frequent, regular manual irrigation of the sam as the pt begins to complain of severe abdominal pain. Each time a large amount of blood clots are withdrawn from his bladder. This has been occuring all night long. Hospitalist Vijay has been made aware that the pt seems to be actively bleeding into his bladder requiring frequent irrigation of Sam. Throughout his vital signs have remained stable. The pt did receive 1 unit PRBC's. Prior to the 1 unit of PRBC's his Hgb was 8.4 Post transfusion CBC revealed a hemoglobin of 8.6 Vijay ROONEY aware.
[2022-06-18 06:31] LABS: MANUAL DIFF FLAG NO
[2022-06-18 06:36] LABS: Basophils Percent Auto 0.3 % (0-2); Eosinophils Absolute Auto 0.1 X10*3/uL (0.0-0.4); Hematocrit 26.2 % (42.0-52.0); Imm Gran Abs Auto 0.06 X10*3/uL (0.00-0.03); Lymphocytes Absolute Auto 0.4 X10*3/uL (1.2-4.9); Lymphocytes Percent Auto 7.2 % (20-40); Mean Corpuscular HGB Conc 30.5 g/dl (31.0-36.0); Mean Corpuscular Hemoglobin 26.4 pg (27.0-33.0); Mean Corpuscular Volume 86.5 fL (80.0-98.0); Mean Platelet Volume 10.9 fL (9.4-12.4); Monocytes Absolute Auto 0.7 X10*3/uL (0.1-1.2); Monocytes Percent Auto 11.6 % (2-11); Neutrophils Absolute Auto 4.6 x10*3/uL (2.0-8.3); Neutrophils Percent Auto 77.9 % (45-73); Platelet Count 80 X10*3/uL (160-400); Red Blood Count 3.03 X10*6/uL (4.60-5.80); Red Cell Distribution Width 17.2 % (11.0-16.0)
[2022-06-18 06:57] LABS: COVID-19 Test Negative (Negative); IDNOW Serial# 55D5AD1C
[2022-06-18 07:05] LABS: Anion Gap 14 (12-20); Blood Urea Nitrogen 15 mg/dL (9-16); Calcium 7.5 mg/dL (8.4-10.2); Carbon Dioxide 22 mmol/L (22-29); Chloride 110 mmol/L (96-108); Estimated Glomerular Filt Rate > 60; Glucose Random 134 mg/dL (60-115); Sodium 141 mmol/L (135-145)
--- NOTE | 2022-06-18 07:20 | PC.NURSE ---
report received from night nurse MATI Sarmiento, report has been given to [facility] for her procedure short stay surgery here to take pt for procedure
[2022-06-18 07:26] LABS: INTERNATIONAL NORM RATIO 1.4 (0.9-1.1); Prothrombin Time 16.3 SEC (10.0-13.1)
--- NOTE | 2022-06-18 07:42 | MHC.SHP ---
Pre-Procedural Eval Section A Date of Service: 06/18/22 The patient is an INPATIENT: Yes Section B Chief Complaint: hematuria Allergies: Allergies Allergy/AdvReac Type Severity Reaction Status Date / Time lisinopril [From ZESTRIL] Allergy Severe UNABLE TO Verified 02/26/22 16:30 BREATH dextran 40 [DEXTRAN 40] Allergy Intermediate tachycardia Verified 02/26/22 16:30 latex [LATEX] Allergy Mild BLISTERS Verified 02/26/22 16:30 cyclobenzaprine Allergy Unknown Unknown Verified 02/26/22 16:30 [From Flexeril] egg Allergy Unknown unknown Verified 02/26/22 16:30 Iodinated Contrast Media Allergy Unknown UNKNOWN Verified 02/26/22 16:30 [CONTRAST,IV] tizanidine [From Zanaflex] Allergy Unknown Hallucinati Verified 02/26/22 16:30 ons pregabalin AdvReac Unknown hallucinati Verified 02/26/22 16:30 ons Plan I have reviewed the history and physical and performed a pertinent physical examination on my patient. No changes have occurred unless specified. Cystoscopy clot evacuation/fulgaration
--- NOTE | 2022-06-18 07:57 | P.CONAN_ITS ---
[facility] Active Problems Active Problems: All Active Problems (Updated 06/17/22 @ 22:05 by Kristan Stephenson MD) History of prostate cancer (Acute) Urinary retention (Acute) Hematuria (Acute) Abdominal pain (Acute) Acute lower gastrointestinal bleeding (Acute) Acute UTI (Acute) Heart failure (Acute) GERD (gastroesophageal reflux disease) (Acute) Need for pneumococcal vaccination (Acute) IBS (irritable colon syndrome) (Acute) CAD (coronary artery disease) (Acute) Esophageal varices in cirrhosis (Acute) Portal hypertensive gastropathy (Acute) Adenomatous polyps (Acute) Diverticulosis (Acute) Internal hemorrhoids (Acute) Radiation proctitis (Acute) Anemia (Chronic) Diabetes type 2, uncontrolled (Acute) 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) Diabetic 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 associated with type 2 diabetes mellitus (Acute) Diabetic nephropathy associated with type 2 diabetes mellitus (Acute) Dyslipidemia (Acute) Hypertension (Acute) Multiple gastric polyps (Acute) Vitamin B12 deficiency (Acute) Cirrhosis of liver without ascites (Acute) Pre-op evaluation (Acute) Cataract (Acute) BPH (benign prostatic hyperplasia) (Acute) Osteoarthritis of left knee (Acute) Primary osteoarthritis of left knee (Acute) Aortic stenosis (Acute) Allergic rhinitis (Acute) Pre-op evaluation (Acute) Chronic anemia (Acute) Past Medical History Medical History Aortic stenosis CAD (coronary artery disease) Chronic fatigue COVID-19 vaccine series completed Diabetes type 2, uncontrolled Diabetic nephropathy associated with type 2 diabetes mellitus Diabetic 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 associated with type 2 diabetes mellitus DMII (diabetes mellitus, type 2) KOEHLER (dyspnea on exertion) Dyslipidemia Esophageal varices without bleeding GERD (gastroesophageal reflux disease) HTN (hypertension) Hypertension IBS (irritable colon syndrome) Iron deficiency anemia correction (current) use of insulin On beta kayy at home ANUJA on CPAP Polyneuropathy Prostate cancer Spinal stenosis Varices of esophagus determined by endoscopy Family History Family History Father CVD (cardiovascular disease) Past heart attack Mother CVD (cardiovascular disease) Brain cancer Heart problem Daughter Breast cancer Sister Breast cancer Son Alive and well Family/Other Myocardial infarction Liver cancer Family history of problems with anesthesia: No Surgical History Surgical History H/O cataract extraction History of colonoscopy History of heart artery stent History of surgery History of surgery History of transurethral resection of prostate Hx of colonoscopy Hx of endoscopy Hx of esophagogastroduodenoscopy History of Problems with Anesthesia: No Social History Social History Household Members: Spouse Housing: House Are you a primary caregiver assisted living to a significant other at home: No Do you presently have visiting nurse or other home services: No Alcohol intake: never Patient Tobacco Use Status: Never used Tobacco e-Cigarette/Vaping Use: Never Used Second Hand Smoke Exposure: No Use of substances other than those prescribed or required for medical reasons: No Are you DNR?: No Advance Directives: No Advance Directives Information Provided: No service: No Current occupational status: retired Cognitive needs: No Hearing needs: No Vision needs: Yes Meds Allergies Allergy/AdvReac Type Severity Reaction Status Date / Time lisinopril [From ZESTRIL] Allergy Severe UNABLE TO Verified 02/26/22 16:30 BREATH dextran 40 [DEXTRAN 40] Allergy Intermediate tachycardia Verified 02/26/22 16:30 latex [LATEX] Allergy Mild BLISTERS Verified 02/26/22 16:30 cyclobenzaprine Allergy Unknown Unknown Verified 02/26/22 16:30 [From Flexeril] egg Allergy Unknown unknown Verified 02/26/22 16:30 Iodinated Contrast Media Allergy Unknown UNKNOWN Verified 02/26/22 16:30 [CONTRAST,IV] tizanidine [From Zanaflex] Allergy Unknown Hallucinati Verified 02/26/22 16:30 ons pregabalin AdvReac Unknown hallucinati Verified 02/26/22 16:30 ons Active Medications: Current Medications Acetaminophen (Acetaminophen 325 Mg Tablet) 650 mg PO Q6H PRN PRN Reason: Pain, Mild (Pain Scale 1-3) Alprazolam (Alprazolam 0.5 Mg Tablet) 0.5 mg PO BID PRN PRN Reason: Anxiety Atorvastatin Calcium (Atorvastatin Calcium 80 Mg Tablet) 80 mg PO BEDTIME PANFILO Dextrose (Dextrose 50 % 25 Gm/50 Ml Syringe) 25 gm IVPUSH Q15M PRN; Protocol PRN Reason: per Hypoglycemia Standing Ord. Dextrose (Dextrose 50 % 25 Gm/50 Ml Syringe) 25 gm IVPUSH Q15M PRN; Protocol PRN Reason: per Hypoglycemia Standing Ord. Ezetimibe (Ezetimibe 10 Mg Tablet) 10 mg PO BEDTIME PANFILO Furosemide (Furosemide 20 Mg Tablet) 20 mg PO DAILY [facility]; Protocol Gabapentin (Gabapentin 400 Mg Capsule) 400 mg PO TID [facility] Glucose (Glucose Gel 15 Gm Gel..Gram.) 15 gm PO Q15M PRN; Protocol PRN Reason: per Hypoglycemia Standing Ord. Glucose (Glucose Gel 15 Gm Gel..Gram.) 15 gm PO Q15M PRN; Protocol PRN Reason: per Hypoglycemia Standing Ord. Ceftriaxone Sodium 1 gm/ (Sodium Chloride) 50 mls @ 100 mls/hr IV Q24H PANFILO Cefazolin Sodium/Dextrose (Ancef) 2 gm in 50 mls @ 100 mls/hr IV PREOP ONE Stop: 06/18/22 08:12 Insulin Human Lispro (Insulin Lispro 100 Unit/Ml 3 Ml Vial) 0 unit SUBCUT QIDACHS [facility]; Protocol Last Admin: 06/18/22 07:29 Dose: Not Given Metoprolol Succinate (Metoprolol Succinate Er 50 Mg Tab.Er.24h) 50 mg PO DAILY [facility]; Protocol Morphine Sulfate (Morphine Sulfate 4 Mg/Ml Cartridge) 4 mg IVPUSH Q4H PRN; Protocol PRN Reason: Pain, Severe (Pain Scale 7-10) Last Admin: 06/18/22 04:20 Dose: 4 mg Non-Formulary Medication (Ferrous Sulfate) 325 mg PO DAILY [facility] Non-Formulary Medication (Insulin Degludec [Tresiba Flextouch U-200]) 65 unit SUBCUT BEDTIME [facility] Omeprazole (Omeprazole 20 Mg Capsule.Dr) 20 mg PO BID [facility] Ondansetron HCl (Ondansetron Hcl 4 Mg/2 Ml Vial) 4 mg IVPUSH Q8H PRN PRN Reason: Nausea and Vomiting Pharmacy Consult (Consult Rx Perform Med Rec) 1 each MISCELLANE ONCE PRN PRN Reason: Consult order Polyethylene Glycol (Polyethylene Glycol 3350 17 Gm Powd.Pack) 17 gm PO DAILY [facility] Sodium Chloride (0.9 % Sodium Chloride Flush 3 Ml Syringe) 3 ml IVFLUSH QSHIFT [facility] Last Admin: 06/18/22 07:30 Dose: Not Given Sucralfate (Sucralfate 1 Gm Tablet) 1 gm PO BID [facility] Tamsulosin HCl (Tamsulosin Hcl 0.4 Mg Capsule) 0.4 mg PO DAILY [facility] Home Medications Medication Instructions Recorded Confirmed Last Taken Type aspirin 81 mg tablet,delayed 81 mg PO DAILY 08/14/20 06/18/22 Unknown History release ferrous sulfate 325 mg (65 mg 325 mg PO DAILY 10/17/20 06/17/22 Unknown History iron) tablet ezetimibe 10 mg tablet (Zetia) 10 mg PO BEDTIME 02/26/22 06/17/22 Unknown History atorvastatin 80 mg tablet 80 mg PO BEDTIME 06/17/22 06/17/22 Unknown History dulaglutide 0.75 mg/0.5 mL 0.75 mg subcut TU 06/17/22 06/17/22 Unknown History subcutaneous pen injector (Trulicity) furosemide 20 mg tablet 1 tab PO DAILY 06/17/22 06/17/22 Unknown History insulin aspart U-100 100 unit/mL 2 - 25 unit subcut TIDAC 06/17/22 06/17/22 Unknown History (3 mL) subcutaneous pen (Novolog Flexpen U-100 Insulin aspart) insulin degludec 200 unit/mL (3 65 unit subcut BEDTIME 06/17/22 06/17/22 Unknown History mL) subcutaneous pen (Tresiba FlexTouch U-200 insulin) metoprolol succinate 50 mg 1 tab PO DAILY 06/17/22 06/17/22 Unknown History tablet,extended release 24 hr clopidogrel 75 mg tablet 1 tab PO DAILY 06/18/22 Unknown History Exam Exam Date and Time: June 18, 2022 075 Height,Weight and Vital Signs: Height 5 ft 9 in Weight 97.069 kg Last Vital Signs Temp 98.7 F 06/18/22 07:40 Pulse 69 06/18/22 07:40 Resp 18 06/18/22 07:40 BP 148/47 H 06/18/22 07:40 Pulse Ox 98 06/18/22 07:40 O2 Del Method 06/18/22 07:40 Pertinent Lab Results Pertinent Lab Results: Laboratory Tests 06/17/22 06/17/22 06/17/22 17:41 17:46 17:46 WBC 5.8 RBC 3.38 L Hgb 8.9 L Hct 29.7 L MCV 87.9 MCH 26.3 L MCHC 30.0 L RDW 17.6 H Plt Count 109 L MPV 11.4 Immature Gran % (Auto) 2.1 H Neut % (Auto) 75.8 H Lymph % (Auto) 7.7 L [place] % (Auto) 11.0 Eos % (Auto) 2.9 Baso % (Auto) 0.5 Lymph # (Auto) 0.5 L [place] # (Auto) 0.6 Eos # (Auto) 0.2 Baso # (Auto) 0.0 Abs Immat Gran (auto) 0.12 H Absolute Neuts (auto) 4.4 Absolute Nucleated RBC 0.000 Nucleated RBC % (auto) 0.0 PT INR Sodium 142 Potassium 4.5 Chloride 109 H Carbon Dioxide 21 L Anion Gap 17 BUN 21 H Creatinine 1.20 Estim Creat Clear Calc 57.2 Estimated GFR 58 POC Glucose Random Glucose 197 H Calcium 8.2 L D Total Bilirubin 1.1 H AST 47 H ALT 40 Alkaline Phosphatase 218 H D Troponin I High Sens 28.0 D B-Natriuretic Peptide 420 H Total Protein 6.6 Albumin 3.5 Urine Color Urine Appearance Urine pH Ur Specific [place] Urine Protein Urine Glucose (UA) Urine Ketones Urine Blood Urine Nitrite Ur Leukocyte Esterase Urine RBC Urine WBC Ur Squamous Epith Cells Urine Bacteria Hyaline Casts Stool Occult Blood COVID-19 (MAJOR) COVID-19 Clin Com Blood Type Antibody Screen Crossmatch 06/17/22 06/17/22 06/17/22 19:45 20:16 20:16 WBC 6.4 RBC 3.06 L Hgb 8.4 L Hct 27.1 L MCV 88.6 MCH 27.5 MCHC 31.0 RDW 17.5 H Plt Count 92 L MPV 10.5 Immature Gran % (Auto) 1.1 H Neut % (Auto) 81.0 H Lymph % (Auto) 5.2 L [place] % (Auto) 10.2 Eos % (Auto) 1.9 Baso % (Auto) 0.6 Lymph # (Auto) 0.3 L [place] # (Auto) 0.7 Eos # (Auto) 0.1 Baso # (Auto) 0.0 Abs Immat Gran (auto) 0.07 H Absolute Neuts (auto) 5.2 Absolute Nucleated RBC 0.000 Nucleated RBC % (auto) 0.0 PT INR Sodium Potassium Chloride Carbon Dioxide Anion Gap BUN Creatinine Estim Creat Clear Calc Estimated GFR POC Glucose Random Glucose Calcium Total Bilirubin AST ALT Alkaline Phosphatase Troponin I High Sens B-Natriuretic Peptide Total Protein Albumin Urine Color Urine Appearance Urine pH Ur Specific [place] Urine Protein Urine Glucose (UA) Urine Ketones Urine Blood Urine Nitrite Ur Leukocyte Esterase Urine RBC Urine WBC Ur Squamous Epith Cells Urine Bacteria Hyaline Casts Stool Occult Blood POSITIVE COVID-19 (MAJOR) COVID-19 Clin Com Blood Type A Positive Antibody Screen NEGATIVE Crossmatch See Detail 06/17/22 06/17/22 06/18/22 20:24 20:30 02:03 WBC 7.8 RBC 3.27 L Hgb 8.6 L Hct 28.4 L MCV 86.9 MCH 26.3 L MCHC 30.3 L RDW 17.2 H Plt Count 96 L MPV 11.0 Immature Gran % (Auto) 1.0 H Neut % (Auto) 83.6 H Lymph % (Auto) 4.0 L [place] % (Auto) 9.1 Eos % (Auto) 2.0 Baso % (Auto) 0.3 Lymph # (Auto) 0.3 L [place] # (Auto) 0.7 Eos # (Auto) 0.2 Baso # (Auto) 0.0 Abs Immat Gran (auto) 0.08 H Absolute Neuts (auto) 6.5 Absolute Nucleated RBC 0.000 Nucleated RBC % (auto) 0.0 PT INR Sodium Potassium Chloride Carbon Dioxide Anion Gap BUN Creatinine Estim Creat Clear Calc Estimated GFR POC Glucose 165 H Random Glucose Calcium Total Bilirubin AST ALT Alkaline Phosphatase Troponin I High Sens B-Natriuretic Peptide Total Protein Albumin Urine Color RED Urine Appearance Cloudy Urine pH 6.5 Ur Specific [place] 1.010 Urine Protein 300 (3+) H Urine Glucose (UA) Negative Urine Ketones Trace Urine Blood Large (3+) H Urine Nitrite Positive H Ur Leukocyte Esterase Moderate (2+) H Urine RBC >20 H Urine WBC 6-10 H Ur Squamous Epith Cells 0-2 Urine Bacteria 1+ Hyaline Casts 0-2 Stool Occult Blood COVID-19 (MAJOR) COVID-19 Clin Com Blood Type Antibody Screen Crossmatch 06/18/22 06/18/22 06/18/22 02:03 06:25 06:25 WBC 6.0 RBC 3.03 L Hgb 8.6 L 8.0 L Hct 28.1 L 26.2 L MCV 86.5 MCH 26.4 L MCHC 30.5 L RDW 17.2 H Plt Count 80 L MPV 10.9 Immature Gran % (Auto) 1.0 H Neut % (Auto) 77.9 H Lymph % (Auto) 7.2 L [place] % (Auto) 11.6 H Eos % (Auto) 2.0 Baso % (Auto) 0.3 Lymph # (Auto) 0.4 L [place] # (Auto) 0.7 Eos # (Auto) 0.1 Baso # (Auto) 0.0 Abs Immat Gran (auto) 0.06 H Absolute Neuts (auto) 4.6 Absolute Nucleated RBC 0.000 Nucleated RBC % (auto) 0.0 PT INR Sodium 141 Potassium 5.0 Chloride 110 H Carbon Dioxide 22 Anion Gap 14 BUN 15 Creatinine 0.98 Estim Creat Clear Calc 70.0 Estimated GFR > 60 POC Glucose Random Glucose 134 H Calcium 7.5 L D Total Bilirubin AST ALT Alkaline Phosphatase Troponin I High Sens B-Natriuretic Peptide Total Protein Albumin Urine Color Urine Appearance Urine pH Ur Specific [place] Urine Protein Urine Glucose (UA) Urine Ketones Urine Blood Urine Nitrite Ur Leukocyte Esterase Urine RBC Urine WBC Ur Squamous Epith Cells Urine Bacteria Hyaline Casts Stool Occult Blood COVID-19 (MAJOR) COVID-[employer] Com Blood Type Antibody Screen Crossmatch 06/18/22 06/18/22 06:30 07:13 WBC RBC Hgb Hct MCV MCH MCHC RDW Plt Count MPV Immature Gran % (Auto) Neut % (Auto) Lymph % (Auto) [place] % (Auto) Eos % (Auto) Baso % (Auto) Lymph # (Auto) [place] # (Auto) Eos # (Auto) Baso # (Auto) Abs Immat Gran (auto) Absolute Neuts (auto) Absolute Nucleated RBC Nucleated RBC % (auto) PT 16.3 H INR 1.4 H Sodium Potassium Chloride Carbon Dioxide Anion Gap BUN Creatinine Estim Creat Clear Calc Estimated GFR POC Glucose Random Glucose Calcium Total Bilirubin AST ALT Alkaline Phosphatase Troponin I High Sens B-Natriuretic Peptide Total Protein Albumin Urine Color Urine Appearance Urine pH Ur Specific [place] Urine Protein Urine Glucose (UA) Urine Ketones Urine Blood Urine Nitrite Ur Leukocyte Esterase Urine RBC Urine WBC Ur Squamous Epith Cells Urine Bacteria Hyaline Casts Stool Occult Blood COVID-19 (MAJOR) Negative COVID-[employer] See Note Blood Type Antibody Screen Crossmatch Airway Mallampati Class: III TM Dist: >3cm Neck ROM: Full Denture: Upper Partial: Lower Loose/Missing/Broken Teeth: Yes and Lower Assessment and Plan Assessment Anesthesia Assessment: Anesthesia Plan Discussed and Chart Reviewed Final Anesthetic Review Family History of Problems with Anesthesia: No History of Problems with Anesthesia: No NPO: Yes ASA Class: III and Emergency Final Preanesthetic Review: Meds/Allgs Chart Reviewed, Consent Obtained/Reviewed and Anes Risks/Benef Reviewed Patient Risk: Intermediate Procedure Risk: Low Anesthetic Plan Anesthetic Plan: GA Disposition: Standard PACU and Inp. Admit - Standard Bed
[2022-06-18 07:58] LABS: Glucose, Whole Blood 112 mg/dL (60-115)
--- NOTE | 2022-06-18 08:03 | PHA.MEDREC ---
Pharmacy Consult ? Medication Reconciliation Pharmacy has completed the medication reconciliation. Reviewed med rec done by nursing; noticed pt recently had plavix filled (06/03/22) that was not added to his list. Contacted pre-op and spoke to Nuria who confirmed with pt that he does take it at home and last had it Saturday 06/16. I added this to his home medication list.
--- NOTE | 2022-06-18 09:21 | W.PM.OPN ---
Operative Note Operative Note Date of Service: 06/18/22 Narrative: PREOP DIAGNOSIS: GROSS HEMATURIA HISTORY OF PROSTATE CANCER STATUS POST RADIATION POSTOP DIAGNOSIS: SAME PROCEDURE: CYSTOSCOPY EVACUATION BLADDER CLOTS FULGURATION Details of procedure: The patient was brought into the operating room placed on the OR table in supine position. 2 g of Ancef IV. General anesthesia was administered. The patient was repositioned into lithotomy position, prepped and draped in the usual sterile fashion. Time-out was done per protocol. Initially attempts to pass the 24 [place] resectoscope noted some resistance at the meatus. The meatus was dilated sequentially from 18 [place] to a 22 [place]. The resectoscope was then passed under direct visualization. There was noted to be some scarring of the bulbous urethra. The prostatic urethra was nonobstructed. Visualization of the bladder was poor due to clots. The [employer] evacuator was used to irrigate out significant clot. On further visualization there was minimal bleeding noted at the bladder neck; using the roller ball this area was fulgurated. Once there was good hemostasis the resectoscope was removed. A [address] catheter 30 cc balloon was passed without difficulty. the Sam was placed on Traction. CBI was started in the OR with normal saline. The patient was brought out of anesthesia and taken to recovery in stable condition. Complications: None Drains: [address]
[2022-06-18 10:24] LABS: Glucose, Whole Blood 126 mg/dL (60-115)
[2022-06-18] MEDS: Lactated Ringers 1,000 ML 50 ML IVCONT (11:05)
--- NOTE | 2022-06-18 12:20 | HO.PM.IMPN ---
Subjective Subjective Date of Service: 06/19/22 Interval History: the patient was seen and evaluated this morning Laying in bed, feels comfortable CBI in place Denies any fever, chills or shortness of breath No reported other overnight events. Systemic review: No fever, chills or weakness No chest pain, palpitation No shortness of breath or coughing No abdominal pain, nausea or vomiting hematuria improving No any rash or wounds Physical Exam Vital Signs: Vital Signs: Last Vital Signs Temp 98.3 F 06/18/22 11:04 Pulse 71 06/18/22 11:35 Resp 16 06/18/22 11:35 BP 126/53 L 06/18/22 11:35 Pulse Ox 98 06/18/22 11:35 O2 Del Method 06/18/22 11:35 O2 Flow Rate 2 06/18/22 11:35 BMI result Body Mass Index 31.6 Const: Other: Constitutional : Alert, oriented, not in distress Neck : Normal inspection, Supple Cardiovascular : RRR, no JVP, no lower extremity edema Respiratory : fair bilateral air entry, no crackles, wheezes or rhonchi Gastrointestinal: soft, lax, Normal bowel sounds, Non tender Skin : Warm, Dry Urology: CBI in place, hematuria resolving Neurological : Alert & oriented x3, No focal deficit Objective Data Active Medications Acetaminophen (Acetaminophen 325 Mg Tablet) 650 mg PO Q6H PRN PRN Reason: Pain, Mild (Pain Scale 1-3) Alprazolam (Alprazolam 0.5 Mg Tablet) 0.5 mg PO BID PRN PRN Reason: Anxiety Atorvastatin Calcium (Atorvastatin Calcium 80 Mg Tablet) 80 mg PO BEDTIME [facility] Dextrose (Dextrose 50 % 25 Gm/50 Ml Syringe) 25 gm IVPUSH Q15M PRN; Protocol PRN Reason: per Hypoglycemia Standing Ord. Dextrose (Dextrose 50 % 25 Gm/50 Ml Syringe) 25 gm IVPUSH Q15M PRN; Protocol PRN Reason: per Hypoglycemia Standing Ord. Ezetimibe (Ezetimibe 10 Mg Tablet) 10 mg PO BEDTIME [facility] Fentanyl (Fentanyl Citrate/Pf 100 Mcg/2 Ml Vial) 25 mcg IVPUSH Q5M PRN; Protocol PRN Reason: Pain, Moderate (Pain Scale 4-6 Ferrous Sulfate (Ferrous Sulfate 324 Mg Tablet.Dr) 324 mg PO DAILY [facility] Last Admin: 06/18/22 10:18 Dose: Not Given Documented By: MEHREEN Non-Admin Reason: Off Unit: Surgery Furosemide (Furosemide 20 Mg Tablet) 20 mg PO DAILY [facility]; Protocol Last Admin: 06/18/22 10:18 Dose: Not Given Documented By: MEHREEN Non-Admin Reason: Off Unit: Surgery Gabapentin (Gabapentin 400 Mg Capsule) 400 mg PO TID [facility] Last Admin: 06/18/22 10:18 Dose: Not Given Documented By: MEHREEN Non-Admin Reason: Off Unit: Surgery Glucose (Glucose Gel 15 Gm Gel..Gram.) 15 gm PO Q15M PRN; Protocol PRN Reason: per Hypoglycemia Standing Ord. Glucose (Glucose Gel 15 Gm Gel..Gram.) 15 gm PO Q15M PRN; Protocol PRN Reason: per Hypoglycemia Standing Ord. Ceftriaxone Sodium 1 gm/ (Sodium Chloride) 50 mls @ 100 mls/hr IV Q24H [facility] Lactated Ringer's (Lr) 1,000 mls @ 50 mls/hr IVCONT .Q20H [facility] Last Admin: 06/18/22 11:05 Dose: 50 mls/hr Documented By: ROBERT Insulin Glargine (Insulin Glargine,Hum.Rec.Anlog 100 Unit/Ml 10 Ml Vial) 46 unit SUBCUT BEDTIME [facility] Insulin Human Lispro (Insulin Lispro 100 Unit/Ml 3 Ml Vial) 0 unit SUBCUT QIDACHS [facility]; Protocol Last Admin: 06/18/22 11:29 Dose: Not Given Documented By: MEHREEN Non-Admin Reason: Off Unit: Surgery Metoprolol Succinate (Metoprolol Succinate Er 50 Mg Tab.Er.24h) 50 mg PO DAILY [facility]; Protocol Last Admin: 06/18/22 10:18 Dose: Not Given Documented By: MEHREEN Non-Admin Reason: Off Unit: Surgery Morphine Sulfate (Morphine Sulfate 4 Mg/Ml Cartridge) 4 mg IVPUSH Q4H PRN; Protocol PRN Reason: Pain, Severe (Pain Scale 7-10) Last Admin: 06/18/22 04:20 Dose: 4 mg Documented By: DANIELLE Omeprazole (Omeprazole 20 Mg Capsule.Dr) 20 mg PO BID@0630,1430 [facility] Ondansetron HCl (Ondansetron Hcl 4 Mg/2 Ml Vial) 4 mg IVPUSH Q8H PRN PRN Reason: Nausea and Vomiting Ondansetron HCl (Ondansetron Hcl 4 Mg/2 Ml Vial) 4 mg IVPUSH ONCE PRN PRN Reason: Nausea and Vomiting Pharmacy Consult (Consult Rx Perform Med Rec) 1 each MISCELLANE ONCE PRN PRN Reason: Consult order Polyethylene Glycol (Polyethylene Glycol 3350 17 Gm Powd.Pack) 17 gm PO DAILY [facility] Last Admin: 06/18/22 10:18 Dose: Not Given Documented By: MEHREEN Non-Admin Reason: Off Unit: Surgery Sodium Chloride (0.9 % Sodium Chloride Flush 3 Ml Syringe) 3 ml IVFLUSH QSHIFT [facility] Last Admin: 06/18/22 07:30 Dose: Not Given Documented By: MEHREEN Non-Savage Reason: Off Unit: Surgery Sucralfate (Sucralfate 1 Gm Tablet) 1 gm PO BID [facility] Last Admin: 06/18/22 10:18 Dose: Not Given Documented By: MEHREEN Non-Admin Reason: Off Unit: Surgery Tamsulosin HCl (Tamsulosin Hcl 0.4 Mg Capsule) 0.4 mg PO DAILY [facility] Last Admin: 06/18/22 10:18 Dose: Not Given Documented By: MEHREEN Non-Savage Reason: Off Unit: Surgery Labs CBC & Chem 7: 06/18/22 06:25 06/18/22 06:25 Labs: Laboratory Results - last 24 hr 06/17/22 06/17/22 06/17/22 17:41 17:46 17:46 MCV 87.9 MCH 26.3 L MCHC 30.0 L RDW 17.6 H Plt Count 109 L MPV 11.4 Immature Gran % (Auto) 2.1 H Neut % (Auto) 75.8 H Lymph % (Auto) 7.7 L [place] % (Auto) 11.0 Eos % (Auto) 2.9 Baso % (Auto) 0.5 Lymph # (Auto) 0.5 L [place] # (Auto) 0.6 Eos # (Auto) 0.2 Baso # (Auto) 0.0 Abs Immat Gran (auto) 0.12 H Absolute Neuts (auto) 4.4 Absolute Nucleated RBC 0.000 Nucleated RBC % (auto) 0.0 PT INR Anion Gap 17 Estim Creat Clear Calc 57.2 Estimated GFR 58 POC Glucose Random Glucose 197 H Calcium 8.2 L D Total Bilirubin 1.1 H AST 47 H ALT 40 Alkaline Phosphatase 218 H D Troponin I High Sens 28.0 D B-Natriuretic Peptide 420 H Total Protein 6.6 Albumin 3.5 Urine Color Urine Appearance Urine pH Ur Specific [place] Urine Protein Urine Glucose (UA) Urine Ketones Urine Blood Urine Nitrite Ur Leukocyte Esterase Urine RBC Urine WBC Ur Squamous Epith Cells Urine Bacteria Hyaline Casts Stool Occult Blood COVID-19 ([facility]OR) COVID-19 Clin Com Blood Type Antibody Screen Crossmatch 06/17/22 06/17/22 06/17/22 19:45 20:16 20:16 MCV 88.6 MCH 27.5 MCHC 31.0 RDW 17.5 H Plt Count 92 L MPV 10.5 Immature Gran % (Auto) 1.1 H Neut % (Auto) 81.0 H Lymph % (Auto) 5.2 L [place] % (Auto) 10.2 Eos % (Auto) 1.9 Baso % (Auto) 0.6 Lymph # (Auto) 0.3 L [place] # (Auto) 0.7 Eos # (Auto) 0.1 Baso # (Auto) 0.0 Abs Immat Gran (auto) 0.07 H Absolute Neuts (auto) 5.2 Absolute Nucleated RBC 0.000 Nucleated RBC % (auto) 0.0 PT INR Anion Gap Estim Creat Clear Calc Estimated GFR POC Glucose Random Glucose Calcium Total Bilirubin AST ALT Alkaline Phosphatase Troponin I High Sens B-Natriuretic Peptide Total Protein Albumin Urine Color Urine Appearance Urine pH Ur Specific [place] Urine Protein Urine Glucose (UA) Urine Ketones Urine Blood Urine Nitrite Ur Leukocyte Esterase Urine RBC Urine WBC Ur Squamous Epith Cells Urine Bacteria Hyaline Casts Stool Occult Blood POSITIVE COVID-19 ([facility]) COVID-19 [place] Com Blood Type A Positive Antibody Screen NEGATIVE Crossmatch See Detail 06/17/22 06/17/22 06/18/22 20:24 20:30 02:03 MCV 86.9 MCH 26.3 L MCHC 30.3 L RDW 17.2 H Plt Count 96 L MPV 11.0 Immature Gran % (Auto) 1.0 H Neut % (Auto) 83.6 H Lymph % (Auto) 4.0 L [place] % (Auto) 9.1 Eos % (Auto) 2.0 Baso % (Auto) 0.3 Lymph # (Auto) 0.3 L [place] # (Auto) 0.7 Eos # (Auto) 0.2 Baso # (Auto) 0.0 Abs Immat Gran (auto) 0.08 H Absolute Neuts (auto) 6.5 Absolute Nucleated RBC 0.000 Nucleated RBC % (auto) 0.0 PT INR Anion Gap Estim Creat Clear Calc Estimated GFR POC Glucose 165 H Random Glucose Calcium Total Bilirubin AST ALT Alkaline Phosphatase Troponin I High Sens B-Natriuretic Peptide Total Protein Albumin Urine Color RED Urine Appearance Cloudy Urine pH 6.5 Ur Specific [place] 1.010 Urine Protein 300 (3+) H Urine Glucose (UA) Negative Urine Ketones Trace Urine Blood Large (3+) H Urine Nitrite Positive H Ur Leukocyte Esterase Moderate (2+) H Urine RBC >20 H Urine WBC 6-10 H Ur Squamous Epith Cells 0-2 Urine Bacteria 1+ Hyaline Casts 0-2 Stool Occult Blood COVID-19 ([facility]OR) COVID-19 Clin Com Blood Type Antibody Screen Crossmatch 06/18/22 06/18/22 06/18/22 06:25 06:25 06:30 MCV 86.5 MCH 26.4 L MCHC 30.5 L RDW 17.2 H Plt Count 80 L MPV 10.9 Immature Gran % (Auto) 1.0 H Neut % (Auto) 77.9 H Lymph % (Auto) 7.2 L [place] % (Auto) 11.6 H Eos % (Auto) 2.0 Baso % (Auto) 0.3 Lymph # (Auto) 0.4 L [place] # (Auto) 0.7 Eos # (Auto) 0.1 Baso # (Auto) 0.0 Abs Immat Gran (auto) 0.06 H Absolute Neuts (auto) 4.6 Absolute Nucleated RBC 0.000 Nucleated RBC % (auto) 0.0 PT INR Anion Gap 14 Estim Creat Clear Calc 70.0 Estimated GFR > 60 POC Glucose Random Glucose 134 H Calcium 7.5 L D Total Bilirubin AST ALT Alkaline Phosphatase Troponin I High Sens B-Natriuretic Peptide Total Protein Albumin Urine Color Urine Appearance Urine pH Ur Specific [place] Urine Protein Urine Glucose (UA) Urine Ketones Urine Blood Urine Nitrite Ur Leukocyte Esterase Urine RBC Urine WBC Ur Squamous Epith Cells Urine Bacteria Hyaline Casts Stool Occult Blood COVID-19 ([facility]) Negative COVID-19 Clin Com See Note Blood Type Antibody Screen Crossmatch 06/18/22 06/18/22 06/18/22 07:13 07:33 10:19 MCV MCH MCHC RDW Plt Count MPV Immature Gran % (Auto) Neut % (Auto) Lymph % (Auto) [place] % (Auto) Eos % (Auto) Baso % (Auto) Lymph # (Auto) [place] # (Auto) Eos # (Auto) Baso # (Auto) Abs Immat Gran (auto) Absolute Neuts (auto) Absolute Nucleated RBC Nucleated RBC % (auto) PT 16.3 H INR 1.4 H Anion Gap Estim Creat Clear Calc Estimated GFR POC Glucose 112 126 H Random Glucose Calcium Total Bilirubin AST ALT Alkaline Phosphatase Troponin I High Sens B-Natriuretic Peptide Total Protein Albumin Urine Color Urine Appearance Urine pH Ur Specific [place] Urine Protein Urine Glucose (UA) Urine Ketones Urine Blood Urine Nitrite Ur Leukocyte Esterase Urine RBC Urine WBC Ur Squamous Epith Cells Urine Bacteria Hyaline Casts Stool Occult Blood COVID-19 ([facility]) COVID-19 Clin Com Blood Type Antibody Screen Crossmatch Assessment and Plan (1) Urinary retention: Status: Acute (2) Hematuria: Status: Acute Plan 77-year-old male with past medical history of recent TAVR, heart block status post pacemaker placement, diabetes, hypertension, and recent urinary retention secondary to prostate cancer presents the hospital with urinary retention and gross hematuria # urinary retention secondary to hematuria with clots Continue tamsulosin CBI in place for now # hematuria could be atrial genetic from difficult insertion of Meier catheter post urology intervention with fulgurated bladder neck Hgb stable post 1 unit of pRBC follow H&H hold ASA CBI in place, continue to monitor # BPH/hx of prostate cancer continue tamsulosin urology Following # UTI Positive UA continue ceftriaxone follow cultures # TAVR stable hold ASA # CHF not in exacerbation continue lasix # DM continue home insuline LDSSI diabetic diet HTN continue home antihypertensive DVT : SCDs the patient will need overnight hospital stay for management of hematuria and urine retention to prevent possible decompensation to blood-loss anemia. Quality Stroke Does the patient have a stroke diagnosis?: No VTE Prior VTE?: No VTE Risk Level:: Medical - moderate - high VTE Device Contraindication: N/A - Device Ordered VTE Drug Contraindication: Treatment Not Indicated
--- NOTE | 2022-06-18 14:25 | MHC.CM.PN ---
Patient lives in a house with his , required no DME [employer], and was active with [facility]. Home/resume said services is the goal and CM has initiated and will follow for dc planning. Patient has received moderna/covid vax x3 and the PCP is WILLIE Cisneros.
[2022-06-18] MEDS: Gabapentin 400 MG CAPSULE PO ×2 (16:01→20:50)
[2022-06-18] MEDS: Omeprazole 20 MG CAPSULE.DR PO (16:02)
[2022-06-18 16:45] LABS: Glucose, Whole Blood 200 mg/dL (60-115)
[2022-06-18] MEDS: Insulin Lispro 100 UNIT/ML 3 ML VIAL SUBCUT ×2 (17:11→20:50)
[2022-06-18 20:02] LABS: Glucose, Whole Blood 256 mg/dL (60-115)
[2022-06-18] MEDS: Sucralfate 1 GM TABLET PO (20:50)
[2022-06-18] MEDS: Atorvastatin Calcium 80 MG TABLET PO (20:50)
[2022-06-18] MEDS: Ezetimibe 10 MG TABLET PO (20:50)
[2022-06-18] MEDS: ALPRAZolam 0.5 MG TABLET PO (20:50)
[2022-06-18] MEDS: Insulin Glargine,Hum.rec.anlog 100 UNIT/ML 10 ML VIAL 46 UNIT SUBCUT (20:50)
[2022-06-18] MEDS: cefTRIAXone sodium 1 GM in 0.9 % Sodium Chloride 50 ML IV (22:20)
[2022-06-19] VITALS (7 sets, daily range): BP systolic 107–149; BP diastolic 52–90; PULSE 61–72; RESP 16–18; TEMP 36.1–36.7; O2SAT 94–96
[2022-06-19] MEDS: Lactated Ringers 1,000 ML 50 ML IVCONT (05:14)
[2022-06-19] MEDS: Omeprazole 20 MG CAPSULE.DR PO ×2 (05:19→14:55)
[2022-06-19 08:14] LABS: Glucose, Whole Blood 163 mg/dL (60-115)
[2022-06-19] MEDS: Furosemide 20 MG TABLET PO (08:18)
[2022-06-19] MEDS: Gabapentin 400 MG CAPSULE PO ×3 (08:18→20:32)
[2022-06-19] MEDS: Insulin Lispro 100 UNIT/ML 3 ML VIAL SUBCUT ×4 (08:19→20:45)
[2022-06-19] MEDS: Sucralfate 1 GM TABLET PO ×2 (08:19→20:33)
[2022-06-19] MEDS: Tamsulosin HCL 0.4 MG CAPSULE PO (08:19)
[2022-06-19] MEDS: Ferrous Sulfate 324 MG TABLET.DR PO (08:19)
[2022-06-19] MEDS: Finasteride 5 MG TABLET PO (08:19)
[2022-06-19] MEDS: Metoprolol Succinate ER 50 MG TAB.ER.24H PO (08:19)
[2022-06-19] MEDS: 0.9 % Sodium Chloride Flush 3 ML SYRINGE IVFLUSH ×3 (08:20→20:41)
--- NOTE | 2022-06-19 10:01 | PM.UROPN ---
Subjective Subjective Date of Service: 06/19/22 Patient reports: feels better Interval history: s/p cysto clot evacuatin, urine clear on CBI Physical Exam Vital Signs: Vital Signs: Last Vital Signs Temp 97.5 F 06/19/22 07:48 Pulse 64 06/19/22 07:48 Resp 17 06/19/22 07:48 BP 146/65 H 06/19/22 07:48 Pulse Ox 96 06/19/22 08:01 O2 Del Method 06/19/22 08:01 O2 Flow Rate 2 06/18/22 14:05 BMI result Body Mass Index 31.6 Const: General: cooperative and healthy appearing Orientation/consciousness: patient oriented x3 HEENT: Head: Yes normocephalic and Yes atraumatic Eyes: Conjunctivae: conjunctivae normal Neck: Neck: Yes trachea midline Chest: Chest palpation & inspection: normal inspection of the chest Resp: Effort & Inspection: normal respiratory effort Cardio: Rate: regular rate : Other: sam in place urine clear Penis: normal penis Scrotum: scrotum normal Skin: General skin exam: dry skin Neuro: General: patient oriented x3 Psych: Appearance: grossly normal Urology Results Labs CBC & Chem 7: 06/18/22 06:25 06/18/22 06:25 Labs: Laboratory Results - last 24 hr 06/18/22 06/18/22 06/18/22 10:19 16:40 19:41 POC Glucose 126 H 200 H 256 H 06/19/22 07:46 POC Glucose 163 H Progress Note: A&P Assessment and plan (1) History of prostate cancer: Status: Acute (2) Hematuria: Status: Acute Assessment and Plan: [place] hematuria resolved post cystoscopy fulgaration: Cystoscopy findings, prostatic urethra non obstructive, minimal bleeding at bladder neck cauterized Voiding trial AM of 06/20/22 Time Spent With Patient Time: Total time spent is greater than 50% in coordination of care (as documented) at patient's floor/unit and/or counseling patient: Progress Note: Quality Stroke Does the patient have a stroke diagnosis?: No
--- NOTE | 2022-06-19 11:55 | HO.POSTANES ---
Post Anesthesia Evaluation Post Anesthesia Evaluation Vital Signs: Vital Signs Temp Pulse Resp BP Pulse Ox O2 Del Method 06/19/22 08:01 96 Room Air 06/19/22 07:48 97.5 F 64 17 146/65 H 96 Room Air 06/19/22 03:59 97 F 61 18 107/52 L 96 Room Air 06/19/22 00:00 97.6 F 72 18 132/90 H 94 Room Air Anesthesia: General Mental Status: Awake Pain Control: Satisfactory Nausea/Vomiting: None Hydration: Adequate Anesthesia-Related Issues: No Anes. Related Issues
--- NOTE | 2022-06-19 12:02 | HO.PM.IMPN ---
Subjective Subjective Date of Service: 06/19/22 Interval History: the patient was seen and evaluated this morning Laying in bed, feels comfortable CBI held this morning as urine looks clear Denies any fever, chills or shortness of breath No reported other overnight events. Systemic review: No fever, chills or weakness No chest pain, palpitation No shortness of breath or coughing No abdominal pain, nausea or vomiting hematuria resolved No any rash or wounds Physical Exam Vital Signs: Vital Signs: Last Vital Signs Temp 97.7 F 06/19/22 12:00 Pulse 69 06/19/22 12:00 Resp 18 06/19/22 12:00 BP 124/60 06/19/22 12:00 Pulse Ox 95 06/19/22 12:00 O2 Del Method 06/19/22 12:00 O2 Flow Rate 2 06/18/22 14:05 BMI result Body Mass Index 31.6 Const: Other: Constitutional : Alert, oriented, not in distress Neck : Normal inspection, Supple Cardiovascular : RRR, no JVP, no lower extremity edema Respiratory : fair bilateral air entry, no crackles, wheezes or rhonchi Gastrointestinal: soft, lax, Normal bowel sounds, Non tender Skin : Warm, Dry Urology: CBI in place, hematuria r resolved Neurological : Alert & oriented x3, No focal deficit Objective Data Active Medications Acetaminophen (Acetaminophen 325 Mg Tablet) 650 mg PO Q6H PRN PRN Reason: Pain, Mild (Pain Scale 1-3) Alprazolam (Alprazolam 0.5 Mg Tablet) 0.5 mg PO BID PRN PRN Reason: Anxiety Last Admin: 06/18/22 20:50 Dose: 0.5 mg Documented By: AILYN Atorvastatin Calcium (Atorvastatin Calcium 80 Mg Tablet) 80 mg PO BEDTIME [facility] Last Admin: 06/18/22 20:50 Dose: 80 mg Documented By: AILYN Dextrose (Dextrose 50 % 25 Gm/50 Ml Syringe) 25 gm IVPUSH Q15M PRN; Protocol PRN Reason: per Hypoglycemia Standing Ord. Dextrose (Dextrose 50 % 25 Gm/50 Ml Syringe) 25 gm IVPUSH Q15M PRN; Protocol PRN Reason: per Hypoglycemia Standing Ord. Ezetimibe (Ezetimibe 10 Mg Tablet) 10 mg PO BEDTIME [facility] Last Admin: 06/18/22 20:50 Dose: 10 mg Documented By: AILYN Fentanyl (Fentanyl Citrate/Pf 100 Mcg/2 Ml Vial) 25 mcg IVPUSH Q5M PRN; Protocol PRN Reason: Pain, Moderate (Pain Scale 4-6 Ferrous Sulfate (Ferrous Sulfate 324 Mg Tablet.Dr) 324 mg PO DAILY [facility] Last Admin: 06/19/22 08:19 Dose: 324 mg Documented By: BATSHEVA Finasteride (Finasteride 5 Mg Tablet) 5 mg PO DAILY [facility] Last Admin: 06/19/22 08:19 Dose: 5 mg Documented By: BATSHEVA Furosemide (Furosemide 20 Mg Tablet) 20 mg PO DAILY [facility]; Protocol Last Admin: 06/19/22 08:18 Dose: 20 mg Documented By: BATSHEVA Gabapentin (Gabapentin 400 Mg Capsule) 400 mg PO TID [facility] Last Admin: 06/19/22 08:18 Dose: 400 mg Documented By: BATSHEVA Glucose (Glucose Gel 15 Gm Gel..Gram.) 15 gm PO Q15M PRN; Protocol PRN Reason: per Hypoglycemia Standing Ord. Glucose (Glucose Gel 15 Gm Gel..Gram.) 15 gm PO Q15M PRN; Protocol PRN Reason: per Hypoglycemia Standing Ord. Ceftriaxone Sodium 1 gm/ (Sodium Chloride) 50 mls @ 100 mls/hr IV Q24H [facility] Last Infusion: 06/18/22 22:59 Dose: 0 mls/hr Documented By: AILYN Lactated Ringer's (Lr) 1,000 mls @ 50 mls/hr IVCONT .Q20H [facility] Last Infusion: 06/19/22 08:04 Dose: 0 mls/hr Documented By: BATSHEVA Insulin Glargine (Insulin Glargine,Hum.Rec.Anlog 100 Unit/Ml 10 Ml Vial) 46 unit SUBCUT BEDTIME [facility] Last Admin: 06/18/22 20:50 Dose: 46 unit Documented By: AILYN Insulin Human Lispro (Insulin Lispro 100 Unit/Ml 3 Ml Vial) 0 unit SUBCUT QIDACHS [facility]; Protocol Last Admin: 06/19/22 08:19 Dose: 2 unit Documented By: BATSHEVA Metoprolol Succinate (Metoprolol Succinate Er 50 Mg Tab.Er.24h) 50 mg PO DAILY [facility]; Protocol Last Admin: 06/19/22 08:19 Dose: 50 mg Documented By: BATSHEVA Morphine Sulfate (Morphine Sulfate 4 Mg/Ml Cartridge) 4 mg IVPUSH Q4H PRN; Protocol PRN Reason: Pain, Severe (Pain Scale 7-10) Last Admin: 06/18/22 04:20 Dose: 4 mg Documented By: DANIELLE Omeprazole (Omeprazole 20 Mg Capsule.Dr) 20 mg PO BID@0630,1430 [facility] Last Admin: 06/19/22 05:19 Dose: 20 mg Documented By: AILYN Ondansetron HCl (Ondansetron Hcl 4 Mg/2 Ml Vial) 4 mg IVPUSH Q8H PRN PRN Reason: Nausea and Vomiting Ondansetron HCl (Ondansetron Hcl 4 Mg/2 Ml Vial) 4 mg IVPUSH ONCE PRN PRN Reason: Nausea and Vomiting Pharmacy Consult (Consult Rx Perform Med Rec) 1 each MISCELLANE ONCE PRN PRN Reason: Consult order Polyethylene Glycol (Polyethylene Glycol 3350 17 Gm Powd.Pack) 17 gm PO DAILY [facility] Last Admin: 06/19/22 08:20 Dose: Not Given Documented By: BATSHEVA Non-Admin Reason: Patient Refused Sodium Chloride (0.9 % Sodium Chloride Flush 3 Ml Syringe) 3 ml IVFLUSH QSHIFT [facility] Last Admin: 06/19/22 08:20 Dose: 3 ml Documented By: BATSHEVA Sucralfate (Sucralfate 1 Gm Tablet) 1 gm PO BID [facility] Last Admin: 06/19/22 08:19 Dose: 1 gm Documented By: BATSHEVA Tamsulosin HCl (Tamsulosin Hcl 0.4 Mg Capsule) 0.4 mg PO DAILY [facility] Last Admin: 06/19/22 08:19 Dose: 0.4 mg Documented By: BATSHEVA Labs CBC & Chem 7: 06/18/22 06:25 06/18/22 06:25 Labs: Laboratory Results - last 24 hr 06/18/22 06/18/22 06/19/22 16:40 19:41 07:46 POC Glucose 200 H 256 H 163 H Microbiology Microbiology Results: Microbiology 06/17/22 20:40 Urine Culture - Final Urine clean catch - Urine izaguirre top Serratia marcescens Assessment and Plan (1) Urinary retention: Status: Acute (2) Hematuria: Status: Acute Plan 77-year-old male with past medical history of recent TAVR, heart block status post pacemaker placement, diabetes, hypertension, and recent urinary retention secondary to prostate cancer presents the hospital with urinary retention and gross hematuria # urinary retention secondary to hematuria with clots Continue tamsulosin and add finasteride plan voiding trials tomorrow and attempt to DC catheter # hematuria resolved post cystoscopy fulguration Hgb stable post 1 unit of pRBC follow H&H hold ASA CBI in place, held for now, to monitor any bleeding # BPH/hx of prostate cancer continue tamsulosin, finasteride urology Following # UTI Positive UA continue ceftriaxone pending cultures # TAVR stable hold ASA # CHF not in exacerbation continue lasix # DM continue home insuline LDSSI diabetic diet HTN continue home antihypertensive DVT : SCDs the patient will need overnight hospital stay for management of hematuria and urine retention to prevent possible decompensation to blood-loss anemia. Quality Stroke Does the patient have a stroke diagnosis?: No VTE Prior VTE?: No VTE Risk Level:: Medical - moderate - high VTE Device Contraindication: N/A - Device Ordered VTE Drug Contraindication: Treatment Not Indicated
[2022-06-19 12:16] LABS: Glucose, Whole Blood 253 mg/dL (60-115)
[2022-06-19 16:33] LABS: Glucose, Whole Blood 271 mg/dL (60-115)
[2022-06-19] MEDS: Ezetimibe 10 MG TABLET PO (20:32)
[2022-06-19] MEDS: Atorvastatin Calcium 80 MG TABLET PO (20:33)
[2022-06-19] MEDS: Insulin Glargine,Hum.rec.anlog 100 UNIT/ML 10 ML VIAL 46 UNIT SUBCUT (20:33)
[2022-06-19 20:36] LABS: Glucose, Whole Blood 261 mg/dL (60-115)
[2022-06-19] MEDS: cefTRIAXone sodium 1 GM in 0.9 % Sodium Chloride 50 ML IV (21:22)
[2022-06-20] VITALS (8 sets, daily range): BP systolic 137–179; BP diastolic 62–78; PULSE 63–75; RESP 17–18; TEMP 36.3–36.8; O2SAT 94–97
[2022-06-20] MEDS: Lactated Ringers 1,000 ML 50 ML IVCONT (00:22)
[2022-06-20] MEDS: Omeprazole 20 MG CAPSULE.DR PO (05:43)
--- NOTE | 2022-06-20 05:54 | PC.NURSE ---
PT sam catheter removed at 0555, PT tolerated well, PT due to void at noon.
[2022-06-20 06:29] LABS: Hematocrit 23.6 % (42.0-52.0); Hemoglobin 7.3 g/dl (14.0-18.0); Mean Corpuscular HGB Conc 30.9 g/dl (31.0-36.0); Mean Corpuscular Hemoglobin 26.7 pg (27.0-33.0); Mean Corpuscular Volume 86.4 fL (80.0-98.0); Mean Platelet Volume 10.9 fL (9.4-12.4); Red Blood Count 2.73 X10*6/uL (4.60-5.80); Red Cell Distribution Width 17.4 % (11.0-16.0); White Blood Count 4.2 X10*3/uL (4.8-10.8)
[2022-06-20 06:34] LABS: Platelet Count 82 X10*3/uL (160-400)
[2022-06-20 06:48] LABS: Anion Gap 13 (12-20); Blood Urea Nitrogen 26 mg/dL (9-16); Calcium 7.7 mg/dL (8.4-10.2); Carbon Dioxide 22 mmol/L (22-29); Chloride 111 mmol/L (96-108); Creatinine Clr Calc Pharmacy 69.5; Estimated Glomerular Filt Rate > 60; Glucose Random 161 mg/dL (60-115); Potassium 4.3 mmol/L (3.3-5.1); Sodium 142 mmol/L (135-145)
[2022-06-20 07:39] LABS: Glucose, Whole Blood 138 mg/dL (60-115)
[2022-06-20] MEDS: Ferrous Sulfate 324 MG TABLET.DR PO (08:31)
[2022-06-20] MEDS: Finasteride 5 MG TABLET PO (08:31)
[2022-06-20] MEDS: Sucralfate 1 GM TABLET PO (08:31)
[2022-06-20] MEDS: Gabapentin 400 MG CAPSULE PO (08:31)
[2022-06-20] MEDS: Tamsulosin HCL 0.4 MG CAPSULE PO (08:31)
[2022-06-20] MEDS: Metoprolol Succinate ER 50 MG TAB.ER.24H PO (08:31)
[2022-06-20] MEDS: Furosemide 20 MG TABLET PO (08:31)
[2022-06-20 11:50] LABS: Glucose, Whole Blood 262 mg/dL (60-115)
[2022-06-20] MEDS: Insulin Lispro 100 UNIT/ML 3 ML VIAL SUBCUT (11:53)
--- NOTE | 2022-06-20 12:51 | PM.DS ---
DS: Providers Provider Date of Service: 06/20/22 Date of admission: 06/17/22 23:58 Primary care physician: Roberto Carlos Cisneros PA-C Consults: 06/17/22 23:59 Consult to Urology Routine Consulting Provider: Hernandez Nuno Reason for consultation: hematuria Has provider been notified: Yes DS: Diagnosis Discharge Diagnosis (1) Urinary retention: Status: Acute (2) Hematuria: Status: Acute (3) Acute UTI: Status: Acute DS: Summary Hospital Course Hospital Course: Admission note HPI This is a 77-year-old male with past medical history of severe aortic stenosis status post TAVR on 06/02, CAD, history of prostate cancer, complete heart block status post pacemaker on 06/02, type 2 diabetes, HLD, history of esophageal varices without bleeding, GERD, HTN, IBS, presents to the hospital with complaints of abdominal pain and urinary retention.? Patient reports that he underwent TAVR and pacemaker placement at [facility] and after that they placed a Sam catheter ?according to reports from [facility], pt's stay was complicated by hematuria follwoing difficult sam cath placement.? it appears that pt also had urinary retention due to hx of prostate cancer and a dilation was done on 06/08 with difficult insertion of sam cath with sig clots requiring regular irrigation. Pt was discharged on 06/13 from [facility] with clear urine and plan for op follow up and VNA to flush cath regularly. ?he reports that he was doing well up until the day of presentation when he started having lower abdominal pain that he describes as 10/10, with significant pressure in the bladder, and feeling that he cannot empty his bladder.? He reports that there was some small amount of urine in the Sam bag but not significant.? He also noted blood in the urine.? He denies having seen any clots.? He reports no headache, no change in vision, no shortness of breath, no dizziness, no chest pain, no nausea or vomiting, no diarrhea but has head constipation, he reports no lower extremity edema.? Patient also reports that he has been having constipation, and today when he wiped he had spots of blood on the toilet paper.? Denies any epigastric pain. On arrival to the ED patient hemodynamically stable no significant abnormal vitals Labs are significant for WBC count of 5.8, hemoglobin of 8 point now with sats dropped from 10.4 on 06/08, labs also showed BNP of 420, patient denies any shortness of breath, no chest pain.? Troponin of 28.? UA positive for leukocyte esterase, nitrites, WBC. Patient had significant retention while in the ED, Sam catheter was irrigated, there was noted to be blood clots, patient was discussed with Urology, and CBI was started due to the significant clots.? Patient continues to have gross hematuria. Hospital course The patient was admitted for treatment of hematuria, urinary retention and UTI. Sam catheter placed with difficulty, started on CBI as urology evaluated the patient. Cystoscopy was done with fulguration and stabilization of the bleeding area which was minimal. Continued on CBI with clearance of the urine. Voiding trials were done with removal of Sam catheter by urologist. Started on finasteride along with tamsulosin. Patient was able to pass urine with no reported hematuria as both aspirin and Plavix were held. Received total of 2 units of blood to keep his hemoglobin above 8. Noted to have urine infection. Treated with ceftriaxone. Urine culture grew Serratia sensitive to ceftriaxone. To finish total of 1 week of antibiotic at time of discharge. continue Ceftin for 5 more days Start finasteride Restart aspirin and Plavix and monitor for any recurrence of bleeding To follow-up as outpatient with urology as planned Time Spent with Patient Time attestation: Total time spent providing and/or coordinating discharge services: Discharge coordination time: Greater than 30 minutes Quality: Safe Use of Opioids Does Pt have an Active Cancer Diagnosis on the Problem List?: Yes Opioid Measure Date for [facility] Report: 05/21/22 Opioid Measure Time for [facility] Report: 12:55 Quality: Stroke Does the patient have a stroke diagnosis?: No Physical Exam Vital Signs: Vital Signs: Last Vital Signs Temp 97.4 F 06/20/22 12:00 Pulse 65 06/20/22 12:00 Resp 17 06/20/22 12:00 BP 145/66 H 06/20/22 12:00 Pulse Ox 96 06/20/22 12:00 O2 Del Method 06/20/22 12:00 O2 Flow Rate 2 06/18/22 14:05 BMI result Body Mass Index 31.6 Const: Other: Constitutional : Alert, oriented, not in distress Neck : Normal inspection, Supple Cardiovascular : RRR, no JVP, no lower extremity edema Respiratory : fair bilateral air entry, no crackles, wheezes or rhonchi Gastrointestinal: soft, lax, Normal bowel sounds, Non tender Skin : Warm, Dry Urology: Clear urine, no hematuria Neurological : Alert & oriented x3, No focal deficit DS: Data Data Completed and Pending Completed studies during hospitalization [Text1]: Pending at discharge 06/18/22 09:00 Surgical [PTH] Routine Labs on day of discharge: Laboratory Results - last 24 hr 06/17/22 06/19/22 06/19/22 20:16 16:29 19:54 WBC RBC Hgb Hct MCV MCH MCHC RDW Plt Count MPV Absolute Nucleated RBC Nucleated RBC % (auto) Sodium Potassium Chloride Carbon Dioxide Anion Gap BUN Creatinine Estim Creat Clear Calc Estimated GFR POC Glucose 271 H 261 H Random Glucose Calcium Blood Type A Positive Antibody Screen NEGATIVE Crossmatch See Detail 06/20/22 06/20/22 06/20/22 05:16 05:16 07:30 WBC 4.2 L RBC 2.73 L Hgb 7.3 L Hct 23.6 L MCV 86.4 MCH 26.7 L MCHC 30.9 L RDW 17.4 H Plt Count 82 L MPV 10.9 Absolute Nucleated RBC 0.000 Nucleated RBC % (auto) 0.0 Sodium 142 Potassium 4.3 Chloride 111 H Carbon Dioxide 22 Anion Gap 13 BUN 26 H D Creatinine 0.99 Estim Creat Clear Calc 69.5 Estimated GFR > 60 POC Glucose 138 H Random Glucose 161 H Calcium 7.7 L Blood Type Antibody Screen Crossmatch 06/20/22 11:23 WBC RBC Hgb Hct MCV MCH MCHC RDW Plt Count MPV Absolute Nucleated RBC Nucleated RBC % (auto) Sodium Potassium Chloride Carbon Dioxide Anion Gap BUN Creatinine Estim Creat Clear Calc Estimated GFR POC Glucose 262 H Random Glucose Calcium Blood Type Antibody Screen Crossmatch Imaging CT scan - abdomen: Radiologist's impression: ITS Impressions Abdomen/Pelvis CT 06/17/22 18:14 IMPRESSION: 1. No acute intra-abdominal process identified. 2. Cirrhosis and evidence of portal hypertension with splenomegaly, small volume ascites, diffuse mild mesenteric edema, perisplenic varices and splenorenal shunt. 3. Cholelithiasis as on prior. No specific CT evidence of acute cholecystitis. Discharge Plan Discharge Anticipated Discharge Date/Time: 10/07/22 12:39 Patient Disposition: Home, Self-Care Discharge Diagnosis: Urine retention, UTI, hematuria Referrals: Roberto Carlos Cisneros PA-C [Primary Care Provider] - 1 Week Discharge Medications: New finasteride [Proscar] 5 mg Tablet 5 mg PO DAILY 30 Days Qty: 30 0RF cefuroxime axetil 500 mg tablet 500 mg PO BID Qty: 10 0RF Continued tamsulosin 0.4 mg capsule 0.4 mg PO DAILY 90 Days Qty: 90 2RF gabapentin 400 mg capsule 400 mg PO TID Qty: 90 5RF metformin 1,000 mg tablet 1,000 mg PO BID 90 Days Qty: 180 3RF sucralfate 1 gram tablet 1 g PO BID 90 Days Qty: 180 1RF alprazolam 0.5 mg tablet 0.5 mg PO BID PRN (Reason: Anxiety) Qty: 30 1RF omeprazole 20 mg capsule,delayed release(DR/EC) 20 mg PO BID Qty: 180 2RF (DME) pen needle, diabetic [BD Gifty 2nd Gen Pen Needle] 32 gauge x 5/32 needle See Rx Instructions .MEDSUPPLY Qty: 150 5RF Rx Instructions: 4 times a day aspirin 81 mg Tablet,Delayed Release (Dr/Ec) 81 mg PO DAILY ezetimibe [Zetia] 10 mg tablet 10 mg PO BEDTIME metoprolol succinate 50 mg tablet extended release 24 hr 1 tab PO DAILY furosemide 20 mg tablet 1 tab PO DAILY atorvastatin 80 mg tablet 80 mg PO BEDTIME insulin aspart U-100 [Novolog Flexpen U-100 Insulin] 100 unit/mL (3 mL) insulin pen 2 - 25 unit subcut TIDAC Tresiba FlexTouch U-200 200 unit/mL (3 mL) insulin pen 65 unit subcut BEDTIME Trulicity 0.75 mg/0.5 mL pen injector 0.75 mg subcut TU clopidogrel 75 mg tablet 1 tab PO DAILY ferrous sulfate 325 mg (65 mg iron) tablet 325 mg PO DAILY (DME) blood pressure test kit-large Kit See Rx Instructions .Route Qty: 1 0RF Rx Instructions: As directed Discharge Orders: Discharge Order (Routine); Ordered 06/20/22 Ordered By: Narendra Perez Diet: Advance to usual diet Activity on Discharge: As tolerated Stand Alone Forms: Patient Portal Discharge page Care Plan Goals: Read below Health Concerns: Read below Plan of Treatment: Read below Assessment: You were admitted to the hospital for evaluation of bloody urine and urine retention. Evaluated by urologist who did cystoscopy fulguration with removal of clots and stabilizing the bleeding area. Placed on bladder irrigation with clearing of the urine. Sam catheter removed with no recurrence of retention as finasteride was started along with tamsulosin. Received total of 2 units of blood with good response. Noted to have urine infection with bacteria growing call Serratia treated with IV antibiotics. continue Ceftin for 5 more days Start finasteride Restart aspirin and Plavix and monitor for any recurrence of bleeding To follow-up as outpatient with urology as planned
--- NOTE | 2022-06-20 13:23 | PC.NURSE ---
1 Unit PRBC's infused,no reaction noted, VSS.
== END 2022-06-20 13:18 | disposition home or self-care (01) | DRG 717 ==
LOC: HO.ED 20:42 → HO.EDOVER 06-18 00:02 → HO.S3 06-18 14:29
PROVIDERS: Physician Assistant; Urology; Admitting Provider Internal Medicine; Emergency Provider Emergency Medicine Emergency Medical Services; PCP Physician Assistant; Visit Provider Student in an Organized Health Care Education/Training Program
PROC: 0T5C8ZZ Destruction of Bladder Neck, Via Natural or Artificial Opening Endoscopic (ICD-10-PCS; principal; 2022-06-18 07:30)
DX: N40.1 Benign prostatic hyperplasia with lower urinary tract symptoms (principal); I44.2 Atrioventricular block, complete; N39.0 Urinary tract infection, site not specified; I25.10 Atherosclerotic heart disease of native coronary artery without angina pectoris; I35.0 Nonrheumatic aortic (valve) stenosis; R33.8 Other retention of urine; E11.42 Type 2 diabetes mellitus with diabetic 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; G47.33 Obstructive sleep apnea (adult) (pediatric); I11.0 Hypertensive heart disease with heart failure; I50.9 Heart failure, unspecified; R31.0 Gross hematuria; Z20.822 Contact with and (suspected) exposure to COVID-19; Z95.5 Presence of coronary angioplasty implant and graft; Z85.46 Personal history of malignant neoplasm of prostate; Z92.21 Personal history of antineoplastic chemotherapy; Z92.3 Personal history of irradiation; Z95.2 Presence of prosthetic heart valve; Z95.0 Presence of cardiac pacemaker; Z91.041 Radiographic dye allergy status; Z91.040 Latex allergy status; Z88.8 Allergy status to other drugs, medicaments and biological substances; Z79.4 Long term (current) use of insulin; Z79.02 Long term (current) use of antithrombotics/antiplatelets; Z79.82 Long term (current) use of aspirin; Z79.84 Long term (current) use of oral hypoglycemic drugs; Z79.899 Other long term (current) drug therapy
CPT/HCPCS: 36415; 74176; 80048; 80053; 81001; 82272; 82947; 83880; 84484; 85014; 85018; 85025; 85027; 85610; 86850; 86900; 86901; 86923; 87086; 87088; 87186; 87635; 88304; 93005; 99285; J0690; J0696; J1100; J2250; J2270; J2405; J3010; P9016

== ENCOUNTER → 2022-07-03 09:20 | Outpatient (BNVA) | payer MEDICARE, SELFPAY | PROVIDERS: PCP Physician Assistant; Visit Provider Urology | DX: C61 Malignant neoplasm of prostate (principal); N30.90 Cystitis, unspecified without hematuria; R33.9 Retention of urine, unspecified; N40.1 Benign prostatic hyperplasia with lower urinary tract symptoms | CPT/HCPCS: 51798; 99212 ==

== ENCOUNTER 2022-08-13 13:31 | Outpatient (REF) | payer MEDICARE, SELFPAY ==
[2022-08-13 13:47] LABS: MANUAL DIFF FLAG NO
[2022-08-13 13:54] LABS: Basophils Absolute Auto 0.1 X10*3/uL (0.0-0.2); Basophils Percent Auto 1.2 % (0-2); Eosinophils Absolute Auto 0.2 X10*3/uL (0.0-0.4); Eosinophils Percent Auto 3.8 % (0-4); Hematocrit 33.1 % (42.0-52.0); Hemoglobin 10.5 g/dl (14.0-18.0); Imm Gran Abs Auto 0.02 X10*3/uL (0.00-0.03); Imm Gran Pct Auto 0.5 % (0.0-0.4); Lymphocytes Absolute Auto 0.6 X10*3/uL (1.2-4.9); Lymphocytes Percent Auto 13.2 % (20-40); Mean Corpuscular HGB Conc 31.7 g/dl (31.0-36.0); Mean Corpuscular Hemoglobin 29.1 pg (27.0-33.0); Mean Corpuscular Volume 91.7 fL (80.0-98.0); Mean Platelet Volume 11.5 fL (9.4-12.4); Monocytes Absolute Auto 0.4 X10*3/uL (0.1-1.2); Monocytes Percent Auto 9.1 % (2-11); Neutrophils Percent Auto 72.2 % (45-73); Red Blood Count 3.61 X10*6/uL (4.60-5.80); White Blood Count 4.2 X10*3/uL (4.8-10.8)
[2022-08-13 13:55] LABS: Platelet Count 94 X10*3/uL (160-400)
[2022-08-13 14:53] LABS: Alanine Aminotransferase 29 U/L (0-40); Albumin Level 3.7 g/dL (3.5-5.0); Alkaline Phosphatase 167 U/L (39-117); Anion Gap 16 (12-20); Aspartate Amino Transferase 43 U/L (5-37); Blood Urea Nitrogen 25 mg/dL (9-16); Calcium 8.4 mg/dL (8.4-10.2); Carbon Dioxide 24 mmol/L (22-29); Chloride 106 mmol/L (96-108); Estimated Glomerular Filt Rate 49; Glucose Random 250 mg/dL (60-115); Potassium 3.9 mmol/L (3.3-5.1); Sodium 142 mmol/L (135-145); Total Protein 6.8 g/dL (6.5-8.0)
[2022-08-13 15:04] LABS: Bilirubin Total 0.9 mg/dL (0.0-1.0)
[2022-08-15 11:59] LABS: NT-proBNP 369 pg/mL
[2022-08-20 00:43] LABS: PSA, Ultra Sensitive <0.02 ng/mL
== END 2022-08-13 13:32 | disposition home or self-care (01) ==
LOC: HO.LAB 13:31
PROVIDERS: Urology; PCP Physician Assistant; Visit Provider Internal Medicine Cardiovascular Disease
DX: Z12.5 Encounter for screening for malignant neoplasm of prostate (principal); C61 Malignant neoplasm of prostate; R06.09 Other forms of dyspnea; Z95.2 Presence of prosthetic heart valve
CPT/HCPCS: 36415; 80053; 83880; 84153; 85025

== ENCOUNTER 2022-10-10 14:12 | Outpatient (REF) | payer MEDICARE, SELFPAY ==
[2022-10-10 14:54] LABS: Hemoglobin 9.4 g/dl (14.0-18.0); Mean Corpuscular HGB Conc 32.4 g/dl (31.0-36.0); Mean Corpuscular Hemoglobin 30.8 pg (27.0-33.0); Mean Corpuscular Volume 95.1 fL (80.0-98.0); Red Blood Count 3.05 X10*6/uL (4.60-5.80); Red Cell Distribution Width 17.9 % (11.0-16.0); White Blood Count 3.7 X10*3/uL (4.8-10.8)
[2022-10-10 14:55] LABS: Platelet Count 70 X10*3/uL (160-400)
[2022-10-10 15:12] LABS: Estimated Average Glucose 146 mg/dL; Hemoglobin A1c % 6.7 %
[2022-10-10 15:37] LABS: Alanine Aminotransferase 22 U/L (0-40); Albumin Level 3.3 g/dL (3.5-5.0); Alkaline Phosphatase 124 U/L (39-117); Anion Gap 11 (12-20); Aspartate Amino Transferase 27 U/L (5-37); Bilirubin Total 0.9 mg/dL (0.0-1.0); Blood Urea Nitrogen 30 mg/dL (9-16); Calcium 8.3 mg/dL (8.4-10.2); Carbon Dioxide 26 mmol/L (22-29); Chloride 108 mmol/L (96-108); Cholesterol 144 mg/dL; Estimated Glomerular Filt Rate 47; Glucose Fasting 179 mg/dL (60-99); HDL Cholesterol 36 mg/dL; LDL Cholesterol Calculated 67 mg/dl; Potassium 4.3 mmol/L (3.3-5.1); Sodium 141 mmol/L (135-145); Triglycerides 208 mg/dL
[2022-10-10 15:51] LABS: TSH reflex Free T4 1.96 uIU/mL (0.32-4.0)
== END 2022-10-10 14:13 | disposition home or self-care (01) ==
LOC: HO.LAB 14:12
PROVIDERS: PCP Physician Assistant; Visit Provider Urology
DX: I25.10 Atherosclerotic heart disease of native coronary artery without angina pectoris (principal); E11.65 Type 2 diabetes mellitus with hyperglycemia
CPT/HCPCS: 36415; 80053; 80061; 82043; 83036; 84443; 85027

== ENCOUNTER → 2022-10-20 14:46 | Outpatient (BNVA) | payer MEDICARE, SELFPAY | PROVIDERS: PCP Physician Assistant; Visit Provider Nurse Practitioner Family | DX: N40.1 Benign prostatic hyperplasia with lower urinary tract symptoms (principal); C61 Malignant neoplasm of prostate | CPT/HCPCS: 51798; 99212 ==

== ENCOUNTER 2022-12-29 04:40 | Inpatient (IN) | payer MEDICARE, SELFPAY ==
[2022-12-29] VITALS (8 sets, daily range): BP systolic 118–166; BP diastolic 44–68; PULSE 73–83; RESP 15–18; TEMP 36.9–37.1; O2SAT 92–99; BMI 30.5
--- NOTE | ~2022-12-29 | US_ITS ---
EXAMINATION: US VENOUS ULTRASOUND WITH DOPPLER LOWER EXTREMITY, RIGHT CLINICAL INFORMATION: Swelling COMPARISON: None available. TECHNIQUE: Ultrasound of the deep veins is performed from the hip to the calf with compression sonography and color and pulse Doppler assessment. Spectral analysis with color-flow imaging is performed. FINDINGS: There is normal venous compression and respiratory variation and augmented flow. The visualized common femoral vein, superficial femoral vein, profunda femoral vein, popliteal vein, and the trifurcation region shows no evidence of deep venous thrombosis. There is no significant popliteal fossa cyst. US/US venous duplex LE RT IMPRESSION: No DVT demonstrated in the right lower extremity.
--- NOTE | ~2022-12-29 | CT_ITS ---
EXAMINATION: CT ANGIOGRAM OF THE CHEST WITH AND WITHOUT CONTRAST (CT PULMONARY ANGIOGRAM FOR PE) CLINICAL INFORMATION: Reason for Exam Hypoxia, right-sided rib pain COMPARISON: Previous chest x-ray May 2022 TECHNIQUE: Prior to contrast administration, noncontrast localization images were obtained. Subsequently, multidetector volumetric imaging was performed from the thoracic inlet to below the diaphragms following the administration of 65 mL Omnipaque 350 intravenous contrast. No contrast reaction reported Sagittal, coronal, and MIP oblique sagittal reformatted images were obtained on the CT workstation, uploaded to PACS, and reviewed. This CT examination was performed using dose optimization techniques as appropriate, variously including the following: *Automated exposure control *Adjustment of mA and/or kV according to patient size (this includes techniques or standardized protocols for targeted exams where dose is matched to indication/reason for exam; i.e. extremities or head) *Use of iterative reconstruction technique Total exam dose-length product 464 mGy-cm FINDINGS: QUALITY OF STUDY/CONTRAST BOLUS: Satisfactory. PULMONARY ARTERIES: No pulmonary emboli. Upper normal-sized pulmonary arteries. THORACIC AORTA: No aneurysm. LUNG: The lung volumes are low. There is dependent atelectasis seen at the lung bases. PLEURA: No pleural effusion or pneumothorax. MEDIASTINUM: The heart is enlarged. There is an aortic valve stent graft. There is a left subclavian dual chamber pacemaker. No pericardial effusion. Mild to moderate coronary artery calcification. No evidence of septal bowing or right heart strain. Small calcified left hilar lymph nodes. No enlarged hilar or mediastinal lymph nodes. CORONARY ARTERY CALCIFICATION: None visualized on this study. CHEST WALL/AXILLA: No axillary or internal mammary lymphadenopathy. OSSEOUS STRUCTURES: No acute or suspicious osseous abnormality. UPPER ABDOMEN: The spleen is not completely imaged but appears enlarged. The liver may be enlarged as well. There may be trace ascites.. No reflux of contrast into the hepatic veins to suggest elevated right heart pressures. CT/CT angio chest PE protocol IMPRESSION: No evidence of pulmonary embolism. Low lung volumes and subsegmental atelectasis at the lung bases. Enlarged heart. Probable hepatosplenomegaly. VTE: negative
--- NOTE | ~2022-12-29 | CT_ITS ---
EXAMINATION: CT CERVICAL SPINE WITHOUT CONTRAST CLINICAL INFORMATION: Right-sided neck pain COMPARISON: None available. TECHNIQUE: Axial 3 mm thin and reformatted 2 mm thin sagittal and coronal images of cervical spine were obtained without contrast. This CT examination was performed using dose optimization techniques as appropriate, variously including the following: *Automated exposure control *Adjustment of mA and/or kV according to patient size (this includes techniques or standardized protocols for targeted exams where dose is matched to indication/reason for exam; i.e. extremities or head) *Use of iterative reconstruction technique DLP: 543 mGy-cm FINDINGS: On sagittal reconstructed images there is mild straightening of cervical lordosis. There is loss of C5-C6 and C7-T1 disc heights the craniovertebral junction and the C1-C2 alignment is normal. There is loss of C5-C6 and C7-T1 disc heights with ventral and posterior spondylosis. The prevertebral and paravertebral soft tissues are normal. There is mild left facet joint arthropathy C2-C3, bilaterally at C5-C6 disc levels. At C5-C6 disc level there is a broad-based disc bulge/posterior spondylosis with mild AP canal stenosis. There is bilateral neural from narrowing from uncovertebral hypertrophic changes. There is a small bony fragment/osteophyte in the proximal right neural foramina. Rest of the disc levels are grossly unremarkable. No aggressive lytic or sclerotic process seen CT/CT cervical spine wo IV con IMPRESSION: Degenerative disc changes C5-C6 and C7-T1 disc levels with ventral and posterior spondylosis. There is AP canal stenosis C5-C6 disc level from disc bulge/osteophyte complex. There is a small osteophyte/bone fragment within the right neural foramina narrowing the neural foramina and likely impinging the nerve root. This could explain patient's right-sided neck pain. Fleischner guidelines were followed.
[2022-12-29 05:05] LABS: MANUAL DIFF FLAG NO
[2022-12-29 05:09] LABS: Basophils Percent Auto 0.6 % (0-2); Eosinophils Percent Auto 1.1 % (0-4); Hematocrit 28.7 % (42.0-52.0); Hemoglobin 9.2 g/dl (14.0-18.0); Imm Gran Abs Auto 0.03 X10*3/uL (0.00-0.03); Imm Gran Pct Auto 0.9 % (0.0-0.4); Lymphocytes Absolute Auto 0.3 X10*3/uL (1.2-4.9); Lymphocytes Percent Auto 8.3 % (20-40); Mean Corpuscular HGB Conc 32.1 g/dl (31.0-36.0); Mean Corpuscular Hemoglobin 31.3 pg (27.0-33.0); Mean Corpuscular Volume 97.6 fL (80.0-98.0); Mean Platelet Volume 10.3 fL (9.4-12.4); Monocytes Absolute Auto 0.4 X10*3/uL (0.1-1.2); Monocytes Percent Auto 11.1 % (2-11); Neutrophils Absolute Auto 2.7 x10*3/uL (2.0-8.3); Red Blood Count 2.94 X10*6/uL (4.60-5.80); White Blood Count 3.5 X10*3/uL (4.8-10.8)
[2022-12-29 05:10] LABS: Platelet Count 77 X10*3/uL (160-400)
[2022-12-29 05:28] LABS: Alanine Aminotransferase 32 U/L (0-40); Albumin Level 3.3 g/dL (3.5-5.0); Alkaline Phosphatase 167 U/L (39-117); Anion Gap 13 (12-20); Aspartate Amino Transferase 39 U/L (5-37); Bilirubin Total 1.3 mg/dL (0.0-1.0); Blood Urea Nitrogen 28 mg/dL (9-16); Calcium 7.9 mg/dL (8.4-10.2); Carbon Dioxide 22 mmol/L (22-29); Chloride 109 mmol/L (96-108); Estimated Glomerular Filt Rate 46; Glucose Random 250 mg/dL (60-115); Potassium 4.3 mmol/L (3.3-5.1); Sodium 140 mmol/L (135-145); Total Protein 6.2 g/dL (6.5-8.0)
[2022-12-29] MEDS: Cyclobenzaprine HCl 10 MG TABLET PO (05:54)
--- NOTE | 2022-12-29 05:56 | PC.NURSE ---
Pt reporting 10/10 pain across the back. Increased pain when lifting arms. Flexeril was ordered and administered.
[2022-12-29 06:20] LABS: Color Urine Yellow; Glucose Urine UA >=1000 mg/dL (Negative); Leukocyte Esterase Urine Negative (Negative); Nitrite Urine Negative (Negative); Specific Gravity - Urine 1.025 (1.005-1.025); UMIC TRIGGER UACC YES; Urine Blood Negative (Negative); Urine Ketones Negative (Negative); Urine Protein Negative (Neg-Trace)
[2022-12-29 06:21] LABS: Appearance Urine Clear
[2022-12-29 06:26] LABS: Bacteria Urine None Seen (None Seen); Hyaline Casts Urine 0-2 /LPF (0-2); RBC Urine 0-2 /HPF (0-2); Squamous Epithelial Cell Urine 0-2 /HPF (0-2); WBC Urine 0-5 /HPF (0-5)
--- NOTE | 2022-12-29 06:28 | PC.NURSE ---
Pt still in a lot of pain. Pt stated the pain got better in the lower half but his neck and upper back are still 10/10. I applied a heat pack to the back of the neck. Pt struggled a lot to lift his head and shoulders off of the bed.
--- NOTE | 2022-12-29 06:35 | ED.GENADULT ---
HPI - General Adult General Chief complaint: General Medical Stated complaint: generalized pain Time Seen by Provider: 12/29/22 06:34 Source: patient, EMS, RN notes reviewed and old records reviewed History of Present Illness HPI narrative: 77-year-old male with a past medical history CAD, diabetes, HLD, HTN, IBS, ANUJA on CPAP, aortic stenosis, presenting to the ED complaining of neck pain radiating to bilateral shoulders and right ribs s/p doing yard work on ladder yesterday around 17:00. States was reaching up hanging something in the tree when developed discomfort. Denies direct injury/trauma or fall. Denies headache, vision changes, CP/SOB, abdominal pain, incontinence/retention, pedal edema. EMS noted patient to be 93% on RA, patient reports baseline 95%, does not wear oxygen at home Onset (ago): hour(s) Related Data Home Medications Medication Instructions Recorded Confirmed ferrous sulfate 325 mg (65 mg 325 mg PO BEDTIME 10/17/20 12/29/22 iron) tablet clopidogrel 75 mg tablet 1 tab PO DAILY 06/18/22 12/29/22 metoprolol succinate 100 mg 100 mg PO DAILY 09/03/22 12/29/22 tablet,extended release 24 hr torsemide 20 mg tablet 20 mg PO DAILY 09/03/22 12/29/22 cyanocobalamin (vitamin B-12) 500 1,000 mcg PO BEDTIME 12/29/22 12/29/22 mcg tablet dulaglutide 0.75 mg/0.5 mL 0.75 mg subcut TU@0900 12/29/22 12/29/22 subcutaneous pen injector (Trulicity) insulin degludec 200 unit/mL (3 64 unit subcut BEDTIME 12/29/22 12/29/22 mL) subcutaneous pen (Tresiba FlexTouch U-200 insulin) omeprazole 20 mg capsule,delayed 20 mg PO BID@0630,1630 12/29/22 12/29/22 release Previous Rx's Medication Instructions Recorded blood pressure test kit-large #1 ea 11/21/21 pen needle, diabetic 32 gauge x #150 ea 05/08/22 (BD Gifty 2nd Gen Pen Needle) bethanechol chloride 25 mg tablet 25 mg PO BID 90 days #180 tabs 07/07/22 tamsulosin 0.4 mg capsule 0.4 mg PO DAILY 90 days #90 caps 07/07/22 finasteride 5 mg tablet (Proscar) 5 mg PO DAILY 90 days #90 tabs 07/16/22 atorvastatin 80 mg tablet 80 mg PO BEDTIME 90 days #90 tabs 08/11/22 ezetimibe 10 mg tablet (Zetia) 10 mg PO BEDTIME 90 days #90 tabs 08/13/22 alprazolam 0.5 mg tablet 0.5 mg PO BID PRN Anxiety #30 tabs 09/03/22 dapagliflozin 10 mg tablet 10 mg PO DAILY #90 tabs 10/01/22 ([facility]) insulin aspart U-100 100 unit/mL 2 - 25 unit (0.02 - 0.25 mL) 10/01/22 (3 mL) subcutaneous pen (Novolog subcut TIDAC #15 mL FlexPen U-100 Insulin aspart) blood-glucose meter (FreeStyle #1 ea 10/03/22 Lite Meter kit) flash glucose scanning reader #1 ea 10/03/22 (FreeStyle Marleni 14 Day [place]) flash glucose sensor (FreeStyle #2 ea 10/03/22 Marleni 14 Day Sensor kit) lancets 28 gauge (FreeStyle #100 ea 10/03/22 Lancets) blood sugar diagnostic (FreeStyle #100 ea 11/12/22 Test strips) gabapentin 400 mg capsule 400 mg PO TID #90 caps 12/22/22 Allergies Allergy/AdvReac Type Severity Reaction Status Date / Time lisinopril [From ZESTRIL] Allergy Severe UNABLE TO Verified 10/20/22 14:56 BREATH dextran 40 [DEXTRAN 40] Allergy Intermediate tachycardia Verified 10/20/22 14:56 latex [LATEX] Allergy Mild BLISTERS Verified 10/20/22 14:56 cyclobenzaprine Allergy Unknown Unknown Verified 10/20/22 14:56 [From Flexeril] egg Allergy Unknown unknown Verified 10/20/22 14:56 Iodinated Contrast Media Allergy Unknown UNKNOWN Verified 10/20/22 14:56 [CONTRAST,IV] tizanidine [From Zanaflex] Allergy Unknown Hallucinati Verified 10/20/22 14:56 ons pregabalin AdvReac Unknown hallucinati Verified 10/20/22 14:56 ons Review of Systems Review of Systems: Constitutional: No Fever, No Chills, No Fatigue, No Malaise ENT/Mouth: No Ear Pain, No sore throat, No Rhinorrhea, No Swallowing Difficulty Eyes: No Eye Pain, No Swelling, No Redness, No Vision Changes Cardiovascular: No Chest Pain, No SOB, No Dyspnea on Exertion, No Orthopnea, No Edema, No Palpitations Respiratory: + Cough, No Sputum, No Dyspnea Gastrointestinal: No Nausea, No Vomiting, No Diarrhea, No Constipation, No Abdominal pain Genitourinary: No irregular bleeding, No Dysuria, No Urinary Frequency, No Hematuria, No Urinary Incontinence/retention, No Flank Pain Musculoskeletal: +joint pain, +Myalgias, No Joint Swelling Skin: No Skin Lesions, No rash Neuro: No Weakness, No Numbness, No Paresthesias, No Loss of Consciousness, No Dizziness, No Headache Yes all other systems are reviewed and are negative Constitutional: Constitutional: Reports as per [facility] Past Medical History Attestation statement: The following information was validated with the patient. 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 On beta kayy at home ANUJA on CPAP Polyneuropathy Prostate cancer Spinal stenosis Varices of esophagus determined by endoscopy Surgical History H/O cataract extraction History of colonoscopy History of heart artery stent History of surgery History of surgery History of transurethral resection of prostate Hx of colonoscopy Hx of endoscopy Hx of esophagogastroduodenoscopy Family History Family History Father CVD (cardiovascular disease) Past heart attack Mother CVD (cardiovascular disease) Brain cancer Heart problem Daughter Breast cancer Sister Breast cancer Son Alive and well Family/Other Myocardial infarction Liver cancer Social History Social History Household Members: Spouse Housing: House Are you a primary plant health care technician to a significant other at home: No Do you presently have visiting nurse or other home services: No Alcohol intake: never Patient Tobacco Use Status: Never used Tobacco Smoked in Last 30 Days: No e-Cigarette/Vaping Use: Never Used Second Hand Smoke Exposure: No Use of substances other than those prescribed or required for medical reasons: No Advance Directives: No service: Yes Current occupational status: retired Cognitive needs: No Hearing needs: No Vision needs: Yes Physical Exam ED Vital Signs: Vital Signs - 24 hr 12/29/22 05:01 12/29/22 05:05 12/29/22 06:49 Temperature 98.4 F 98.4 F Pulse Rate 77 77 73 Respiratory Rate 16 16 16 Blood Pressure 150/44 H 150/44 H 142/57 H Pulse Oximetry 94 95 93 Oxygen Delivery Method Nasal Cannula Nasal Cannula Room Air Oxygen Flow Rate 2 12/29/22 10:41 12/29/22 14:00 12/29/22 16:48 Temperature 98.5 F Pulse Rate 74 79 80 Respiratory Rate 15 16 15 Blood Pressure 152/54 H 139/58 L Pulse Oximetry 92 93 Oxygen Delivery Method Nasal Cannula Nasal Cannula Oxygen Flow Rate 2 2 BMI result Body Mass Index 30.5 Const General: cooperative, healthy appearing and no acute distress Orientation/consciousness: patient oriented x3 Limitations: no limitations HENMT Head: Yes normal to inspection and Yes atraumatic Ears: hearing grossly normal bilaterally General nose exam: Normal external nose present Face and sinus: Yes normal facial exam Eyes General: appearance normal, both eyes and all related structures Pupils: Equal, round and reactive pupils present EOM: EOMs intact bilaterally Neck Other: no midline cervical spinous tenderness. Bilateral MSK/paraspinal tenderness noted. + neck stiffness, no meningeal signs Neck: Yes normal visual inspection, Yes no meningeal signs and No anterior neck swelling Chest Other: + right-sided posterior lateral rib tenderness elicited. No erythema/ecchymosis or flail chest Chest palpation & inspection: normal inspection of the chest, no crepitus and tenderness Resp Effort & Inspection: normal respiratory effort and no respiratory distress Auscultation: clear to auscultation bilaterally Cardio Rate: regular rate Heart sounds: S1 normal heart sound present and S2 normal heart sound present GI Inspection: Yes normal to inspection Palpation (GI): Soft to palpation, nontender, no guarding and not rigid General: Yes no CVA tenderness Back/Spine/Pelvis Other: No midline cervical/thoracic/lumbar spinous tenderness/step-off or deformity Back: no CVA tenderness Skin Rashes: no rashes Wounds: no wounds Neuro General: patient oriented x3, tone normal, moves all extremities, no meningeal signs, no focal motor deficits and CN's II-XI intact bilaterally Cranial nerves: Yes Equal, round and reactive pupils present Motor exam (neuro): 5/5 motor strength present throughout Extrem Other: 3+ RLE pitting edema General: Yes edema Course Course Course Narrative: -patient reports his allergy to IV contrast is feeling dizzy and nauseous. Will pre treat with Zofran and Benadryl -chronic leukopenia. H&H at patient's baseline. D-dimer elevated to 250 > obtain CTA to rule out PE -chronic CKD, chronic transaminitis. Initial troponin 12.1 > will obtain 3 hour repeat. BNP chronically elevated -ultrasound negative for DVT CT cervical spine wo IV con IMPRESSION: Degenerative disc changes C5-C6 and C7-T1 disc levels with ventral and posterior spondylosis. ? There is AP canal stenosis C5-C6 disc level from disc bulge/osteophyte complex. There is a small osteophyte/bone fragment within the right neural foramina narrowing the neural foramina and likely impinging the nerve root. This could explain patient's right-sided neck pain. ? Fleischner guidelines were followed. > neuro exam nonfocal, strength intact. Denies saddle anesthesia. Patient with significant neck pain with any slight movement CT angio chest PE protocol IMPRESSION: No evidence of pulmonary embolism. Low lung volumes and subsegmental atelectasis at the lung bases. Enlarged heart. Probable hepatosplenomegaly. ? VTE: negative > due to contrast use in GFR patient will need repeat creatinine in 48 hours -1018--on re-evaluation patient is sleeping comfortably, satting 92% on 2 L NC, oxygen shut off and patient desatted to 70%, woke up started talking and was still satting in mid 80s on RA > will obtain COVID/flu/RSV testing and plan for admission -hospitalist evaluated patient, theyre concern for patient's acute pain & C-spine findings. Requesting neurosurgical input, ?possible transfer to another facility > will consult [facility] neurosurgery -1425--spoke with Jaymie neurosurgery at [facility], recommended MRI for further eval of pain, reports without red flag symptoms/neuro deficits pain control is mainstay of treatment > recommended 10 mg of IV Decadron followed by 4 mg q.6 hours >> can re-consult after MRI if needed. No need or indication for emergent transfer at this time -1600--unable to obtain MRI today due to patient's pacemaker, will need to be pre-planned. Re-consulted hospitalist, plan to admit for hypoxia/pain control and possible MRI tomorrow. Medications Administered Discontinued Medications Generic Name Dose Route Start Last Admin Trade Name Freq PRN Reason Stop Dose Admin Albuterol/Ipratropium 3 ml 12/29/22 10:17 12/29/22 10:39 Albuterol/Iprat 2.5/0.5mg 3 Ml Ampul.Neb INHALE 12/29/22 10:18 3 ml ONCE ONE Administration Cyclobenzaprine HCl 10 mg 12/29/22 05:50 12/29/22 05:54 Cyclobenzaprine Hcl 10 Mg Tablet PO 12/29/22 05:51 10 mg ONCE STA Administration Dexamethasone Sodium Phosphate 10 mg 12/29/22 14:25 12/29/22 14:32 Dexamethasone Sod Phosphate 10 Mg/Ml Vial IVPUSH 12/29/22 14:26 10 mg ONCE ONE Administration Diphenhydramine HCl 25 mg 12/29/22 07:32 12/29/22 07:43 Diphenhydramine Hcl 50 Mg/Ml Vial IVPUSH 12/29/22 07:33 25 mg ONCE ONE Administration Sodium Chloride 500 mls @ 999 mls/hr 12/29/22 07:30 12/29/22 10:43 Ns IV 12/29/22 08:00 Infused .Q31M PANFILO Infusion Iohexol 65 ml 12/29/22 08:40 12/29/22 08:41 Iohexol 350 Mg/Ml 75 Ml Infus..Btl IV 12/29/22 08:41 65 ml ONCE ONE Administration Lidocaine 1 patch 12/29/22 06:47 12/29/22 07:38 Lidocaine 4 % Patch Adh..Patch TRANSDERMA 12/29/22 06:48 1 patch ONCE ONE Administration Protocol Morphine Sulfate 2 mg 12/29/22 07:30 12/29/22 07:43 Morphine Sulfate 2 Mg/Ml Cartridge IVPUSH 12/29/22 07:31 2 mg ONCE ONE Administration Protocol Ondansetron HCl 4 mg 12/29/22 07:30 12/29/22 07:43 Ondansetron Hcl 4 Mg/2 Ml Vial IVPUSH 12/29/22 07:31 4 mg ONCE ONE Administration Medical Decision Making Medical Decision Making MDM Narrative: 77-year-old male with a past medical history CAD, diabetes, HLD, HTN, IBS, ANUJA on CPAP, aortic stenosis, presenting to the ED complaining of neck pain radiating to bilateral shoulders and right ribs s/p doing yard work on ladder yesterday around 17:00. On exam satting 89% on room air, increases to 93% with good breaths/coughing, no midline spinous tenderness throughout. Bilateral paraspinal and MSK tenderness elicited. Right-sided posterior lateral rib tenderness noted, no evidence of flail chest, abdomen soft/nontender. RLE pitting edema. Concern for MSK pain/strain and radiculopathy vs pneumonia vs CHF vs PE/DVT. Low suspicion for cervical dissection, cauda quinine/cord compression Plan: EKG, labs, venous duplex ultrasound, CT cervical spine, CT PE, pain control Please refer to course for remaining clinical decision making, interpretation of labs/imaging results, and discussions with consultants and/or family members. Differential Diagnosis Differential Diagnoses: The differential diagnosis associated with the presentation includes As above Admission/Observation Consideration of admission/observation: Escalation of care including admission/observation considered Lab Data [facility] Lab Attestation statement: I reviewed the patient's lab results. 12/29/22 04:56 12/29/22 04:56 Labs: Lab Results 12/29/22 12/29/22 12/29/22 Range/Units 04:56 04:56 04:56 WBC 3.5 L (4.8-10.8) X10*3/uL RBC 2.94 L (4.60-5.80) X10*6/uL Hgb 9.2 L (14.0-18.0) g/dl Hct 28.7 L (42.0-52.0) % MCV 97.6 (80.0-98.0) fL MCH 31.3 (27.0-33.0) pg MCHC 32.1 (31.0-36.0) g/dl RDW 15.0 (11.0-16.0) % Plt Count 77 L (160-400) X10*3/uL MPV 10.3 (9.4-12.4) fL Immature Gran % (Auto) 0.9 H (0.0-0.4) % Neut % (Auto) 78.0 H (45-73) % Lymph % (Auto) 8.3 L (20-40) % [place] % (Auto) 11.1 H (2-11) % Eos % (Auto) 1.1 (0-4) % Baso % (Auto) 0.6 (0-2) % Lymph # (Auto) 0.3 L (1.2-4.9) X10*3/uL [place] # (Auto) 0.4 (0.1-1.2) X10*3/uL Eos # (Auto) 0.0 (0.0-0.4) X10*3/uL Baso # (Auto) 0.0 (0.0-0.2) X10*3/uL Abs Immat Gran (auto) 0.03 (0.00-0.03) X10*3/uL Absolute Neuts (auto) 2.7 (2.0-8.3) x10*3/uL Absolute Nucleated RBC 0.000 (0.0-0.012) X10*3/uL Nucleated RBC % (auto) 0.0 (0.0-0.2) /100WBC PT (10.0-13.1) SEC INR (0.9-1.1) D-Dimer High Sensitivty NG/ML Sodium 140 (135-145) mmol/L Potassium 4.3 (3.3-5.1) mmol/L Chloride 109 H (96-108) mmol/L Carbon Dioxide 22 (22-29) mmol/L Anion Gap 13 (12-20) BUN 28 H (9-16) mg/dL Creatinine 1.47 H (0.5-1.4) mg/dL Estim Creat Clear Calc 46.0 Estimated GFR 46 POC Glucose (60-115) mg/dL Random Glucose 250 H (60-115) mg/dL Calcium 7.9 L (8.4-10.2) mg/dL Total Bilirubin 1.3 H (0.0-1.0) mg/dL AST 39 H (5-37) U/L ALT 32 (0-40) U/L Alkaline Phosphatase 167 H (39-117) U/L Troponin I High Sens (<3.5-35.0) ng/L B-Natriuretic Peptide 287 H (<100) pg/mL Total Protein 6.2 L (6.5-8.0) g/dL Albumin 3.3 L (3.5-5.0) g/dL Lipase 79 H (8-78) U/L Urine Color Urine Appearance Urine pH (5.0-9.0) Ur Specific Gurley (1.005-1.025) Urine Protein (Neg-Trace) mg/dL Urine Glucose (UA) (Negative) mg/dL Urine Ketones (Negative) mg/dL Urine Blood (Negative) Urine Nitrite (Negative) Ur Leukocyte Esterase (Negative) Urine RBC (0-2) /HPF Urine WBC (0-5) /HPF Ur Squamous Epith Cells (0-2) /HPF Urine Bacteria (None Seen) Hyaline Casts (0-2) /LPF Influenza Type A (PCR) (Negative) Influenza Type B (PCR) (Negative) RSV RNA Qual (PCR) (Negative) SARS-CoV-2 RNA (RT-PCR) (Negative) 12/29/22 12/29/22 12/29/22 Range/Units 06:00 07:26 07:26 WBC (4.8-10.8) X10*3/uL RBC (4.60-5.80) X10*6/uL Hgb (14.0-18.0) g/dl Hct (42.0-52.0) % MCV (80.0-98.0) fL MCH (27.0-33.0) pg MCHC (31.0-36.0) g/dl RDW (11.0-16.0) % Plt Count (160-400) X10*3/uL MPV (9.4-12.4) fL Immature Gran % (Auto) (0.0-0.4) % Neut % (Auto) (45-73) % Lymph % (Auto) (20-40) % [place] % (Auto) (2-11) % Eos % (Auto) (0-4) % Baso % (Auto) (0-2) % Lymph # (Auto) (1.2-4.9) X10*3/uL [place] # (Auto) (0.1-1.2) X10*3/uL Eos # (Auto) (0.0-0.4) X10*3/uL Baso # (Auto) (0.0-0.2) X10*3/uL Abs Immat Gran (auto) (0.00-0.03) X10*3/uL Absolute Neuts (auto) (2.0-8.3) x10*3/uL Absolute Nucleated RBC (0.0-0.012) X10*3/uL Nucleated RBC % (auto) (0.0-0.2) /100WBC PT 14.7 H (10.0-13.1) SEC INR 1.3 H (0.9-1.1) D-Dimer High Sensitivty NG/ML Sodium (135-145) mmol/L Potassium (3.3-5.1) mmol/L Chloride (96-108) mmol/L Carbon Dioxide (22-29) mmol/L Anion Gap (12-20) BUN (9-16) mg/dL Creatinine (0.5-1.4) mg/dL Estim Creat Clear Calc Estimated GFR POC Glucose (60-115) mg/dL Random Glucose (60-115) mg/dL Calcium (8.4-10.2) mg/dL Total Bilirubin (0.0-1.0) mg/dL AST (5-37) U/L ALT (0-40) U/L Alkaline Phosphatase (39-117) U/L Troponin I High Sens 12.1 (<3.5-35.0) ng/L B-Natriuretic Peptide (<100) pg/mL Total Protein (6.5-8.0) g/dL Albumin (3.5-5.0) g/dL Lipase (8-78) U/L Urine Color Yellow Urine Appearance Clear Urine pH 6.0 (5.0-9.0) Ur Specific Gurley 1.025 (1.005-1.025) Urine Protein Negative (Neg-Trace) mg/dL Urine Glucose (UA) >=1000 H (Negative) mg/dL Urine Ketones Negative (Negative) mg/dL Urine Blood Negative (Negative) Urine Nitrite Negative (Negative) Ur Leukocyte Esterase Negative (Negative) Urine RBC 0-2 (0-2) /HPF Urine WBC 0-5 (0-5) /HPF Ur Squamous Epith Cells 0-2 (0-2) /HPF Urine Bacteria None Seen (None Seen) Hyaline Casts 0-2 (0-2) /LPF Influenza Type A (PCR) (Negative) Influenza Type B (PCR) (Negative) RSV RNA Qual (PCR) (Negative) SARS-CoV-2 RNA (RT-PCR) (Negative) 12/29/22 12/29/22 12/29/22 Range/Units 07:26 11:34 14:26 WBC (4.8-10.8) X10*3/uL RBC (4.60-5.80) X10*6/uL Hgb (14.0-18.0) g/dl Hct (42.0-52.0) % MCV (80.0-98.0) fL MCH (27.0-33.0) pg MCHC (31.0-36.0) g/dl RDW (11.0-16.0) % Plt Count (160-400) X10*3/uL MPV (9.4-12.4) fL Immature Gran % (Auto) (0.0-0.4) % Neut % (Auto) (45-73) % Lymph % (Auto) (20-40) % [place] % (Auto) (2-11) % Eos % (Auto) (0-4) % Baso % (Auto) (0-2) % Lymph # (Auto) (1.2-4.9) X10*3/uL [place] # (Auto) (0.1-1.2) X10*3/uL Eos # (Auto) (0.0-0.4) X10*3/uL Baso # (Auto) (0.0-0.2) X10*3/uL Abs Immat Gran (auto) (0.00-0.03) X10*3/uL Absolute Neuts (auto) (2.0-8.3) x10*3/uL Absolute Nucleated RBC (0.0-0.012) X10*3/uL Nucleated RBC % (auto) (0.0-0.2) /100WBC PT (10.0-13.1) SEC INR (0.9-1.1) D-Dimer High Sensitivty 250 NG/ML Sodium (135-145) mmol/L Potassium (3.3-5.1) mmol/L Chloride (96-108) mmol/L Carbon Dioxide (22-29) mmol/L Anion Gap (12-20) BUN (9-16) mg/dL Creatinine (0.5-1.4) mg/dL Estim Creat Clear Calc Estimated GFR POC Glucose (60-115) mg/dL Random Glucose (60-115) mg/dL Calcium (8.4-10.2) mg/dL Total Bilirubin (0.0-1.0) mg/dL AST (5-37) U/L ALT (0-40) U/L Alkaline Phosphatase (39-117) U/L Troponin I High Sens 13.7 (<3.5-35.0) ng/L B-Natriuretic Peptide (<100) pg/mL Total Protein (6.5-8.0) g/dL Albumin (3.5-5.0) g/dL Lipase (8-78) U/L Urine Color Urine Appearance Urine pH (5.0-9.0) Ur Specific Gurley (1.005-1.025) Urine Protein (Neg-Trace) mg/dL Urine Glucose (UA) (Negative) mg/dL Urine Ketones (Negative) mg/dL Urine Blood (Negative) Urine Nitrite (Negative) Ur Leukocyte Esterase (Negative) Urine RBC (0-2) /HPF Urine WBC (0-5) /HPF Ur Squamous Epith Cells (0-2) /HPF Urine Bacteria (None Seen) Hyaline Casts (0-2) /LPF Influenza Type A (PCR) NEGATIVE (Negative) Influenza Type B (PCR) NEGATIVE (Negative) RSV RNA Qual (PCR) NEGATIVE (Negative) SARS-CoV-2 RNA (RT-PCR) NEGATIVE (Negative) 12/29/22 Range/Units 14:29 WBC (4.8-10.8) X10*3/uL RBC (4.60-5.80) X10*6/uL Hgb (14.0-18.0) g/dl Hct (42.0-52.0) % MCV (80.0-98.0) fL MCH (27.0-33.0) pg MCHC (31.0-36.0) g/dl RDW (11.0-16.0) % Plt Count (160-400) X10*3/uL MPV (9.4-12.4) fL Immature Gran % (Auto) (0.0-0.4) % Neut % (Auto) (45-73) % Lymph % (Auto) (20-40) % [place] % (Auto) (2-11) % Eos % (Auto) (0-4) % Baso % (Auto) (0-2) % Lymph # (Auto) (1.2-4.9) X10*3/uL [place] # (Auto) (0.1-1.2) X10*3/uL Eos # (Auto) (0.0-0.4) X10*3/uL Baso # (Auto) (0.0-0.2) X10*3/uL Abs Immat Gran (auto) (0.00-0.03) X10*3/uL Absolute Neuts (auto) (2.0-8.3) x10*3/uL Absolute Nucleated RBC (0.0-0.012) X10*3/uL Nucleated RBC % (auto) (0.0-0.2) /100WBC PT (10.0-13.1) SEC INR (0.9-1.1) D-Dimer High Sensitivty NG/ML Sodium (135-145) mmol/L Potassium (3.3-5.1) mmol/L Chloride (96-108) mmol/L Carbon Dioxide (22-29) mmol/L Anion Gap (12-20) BUN (9-16) mg/dL Creatinine (0.5-1.4) mg/dL Estim Creat Clear Calc Estimated GFR POC Glucose 142 H (60-115) mg/dL Random Glucose (60-115) mg/dL Calcium (8.4-10.2) mg/dL Total Bilirubin (0.0-1.0) mg/dL AST (5-37) U/L ALT (0-40) U/L Alkaline Phosphatase (39-117) U/L Troponin I High Sens (<3.5-35.0) ng/L B-Natriuretic Peptide (<100) pg/mL Total Protein (6.5-8.0) g/dL Albumin (3.5-5.0) g/dL Lipase (8-78) U/L Urine Color Urine Appearance Urine pH (5.0-9.0) Ur Specific [place] (1.005-1.025) Urine Protein (Neg-Trace) mg/dL Urine Glucose (UA) (Negative) mg/dL Urine Ketones (Negative) mg/dL Urine Blood (Negative) Urine Nitrite (Negative) Ur Leukocyte Esterase (Negative) Urine RBC (0-2) /HPF Urine WBC (0-5) /HPF Ur Squamous Epith Cells (0-2) /HPF Urine Bacteria (None Seen) Hyaline Casts (0-2) /LPF Influenza Type A (PCR) (Negative) Influenza Type B (PCR) (Negative) RSV RNA Qual (PCR) (Negative) SARS-CoV-2 RNA (RT-PCR) (Negative) Radiology Impression Discussion of test interpretation with radiology: I have reviewed the radiologist's reading. External Record Review External record reviewed: Inpatient record, Office record, Outpatient record, Prior outpatient labs, Prior outpatient radiology, Primary care record and Outside ED record Critical Care Time Critical Care Time Critical Care Time: Yes Total Critical Care Time: 45 Attestation: I have personally provided critical care time exclusive of time spent on separately billable procedures. Time includes review of lab data, radiology results, discussion with consultants, and monitoring for potential decompensation. Intervention performed as documented. Discharge Plan Discharge Clinical Impression: Hypoxia, Acute neck pain Patient Disposition: Admitted As Inpatient
--- NOTE | 2022-12-29 06:39 | PC.NURSE ---
Pt voided 900mL via purewick as of 06:39
--- NOTE | 2022-12-29 06:47 | ECG_ITS ---
Test Reason : weakness Blood Pressure : / mmHG Vent. Rate : 072 BPM Atrial Rate : 072 BPM P-R Int : 222 ms QRS Dur : 128 ms QT Int : 436 ms P-R-T Axes : 037 -35 -09 degrees QTc Int : 477 ms Atrial-sensed ventricular-paced rhythm with prolonged AV conduction Abnormal ECG When compared with ECG of 17-JUN-2022 21:18, No significant change was found Referred By: Mandi Fuentes Electronically Signed By:TRAY CARLSON
[2022-12-29 07:01] LABS: Lipase 79 U/L (8-78)
[2022-12-29 07:14] LABS: B Type Natriuretic Peptide 287 pg/mL (<100)
[2022-12-29] MEDS: 0.9 % Sodium Chloride 500 ML 999 ML IV (07:38)
[2022-12-29] MEDS: Lidocaine 4 % Patch ADH..PATCH 1 PATCH TRANSDERMA (07:38)
[2022-12-29 07:41] LABS: INTERNATIONAL NORM RATIO 1.3 (0.9-1.1); Prothrombin Time 14.7 SEC (10.0-13.1)
[2022-12-29 07:43] LABS: D Dimer High Sensitivity 250 NG/ML
[2022-12-29] MEDS: Morphine Sulfate 2 MG/ML CARTRIDGE IVPUSH ×2 (07:43→20:05)
[2022-12-29] MEDS: ondansetron HCL 4 MG/2 ML VIAL IVPUSH (07:43)
[2022-12-29] MEDS: diphenhydrAMINE HCL 50 MG/ML VIAL 25 MG IVPUSH (07:43)
--- NOTE | 2022-12-29 07:46 | PC.NURSE ---
Patient continues to endorse pain, especially of the neck. Oxygen applied at 2L nasal cannula d/t o2 of 86-88. IV established, medicated per the MAR. Pt aware of plan for CT scan at this time. Requesting pain patch be applied at neck rather than ribs as ordered.
[2022-12-29 07:55] LABS: Troponin-I High Sensitivity 12.1 ng/L (<3.5-35.0)
[2022-12-29] MEDS: iohexoL 350 MG/ML 75 ML INFUS..BTL 65 ML IV (08:41)
[2022-12-29] MEDS: Albuterol/Iprat 2.5/0.5MG 3 ML AMPUL.NEB INHALE (10:39)
--- NOTE | 2022-12-29 11:33 | PHA.MEDREC ---
Pharmacy Consult ? Medication Reconciliation Pharmacy has completed the medication reconciliation. Spoke with patient in the ED. Patient was able to confirm all home medication.
[2022-12-29 12:19] LABS: Influenza A PCR NEGATIVE (Negative); Influenza B PCR NEGATIVE (Negative); Resp Syncy Virus RNA Qual PCR NEGATIVE (Negative); SARS COV2 PCR INHOUSE NEGATIVE (Negative)
[2022-12-29] MEDS: dexAMETHasone sod phosphate 10 MG/ML VIAL IVPUSH (14:32)
[2022-12-29 14:34] LABS: Glucose, Whole Blood 142 mg/dL (60-115)
--- NOTE | 2022-12-29 14:34 | PC.NURSE ---
Pt continues to have pain in his neck, unable to move without yelling out in pain. Plan for MRI
[2022-12-29 14:53] LABS: Troponin-I High Sensitivity 13.7 ng/L (<3.5-35.0)
--- NOTE | 2022-12-29 17:20 | PM.IMHP ---
History of Present Illness Date of Service: 12/29/22 Attending physician on admission: Tai Carrion Chief Complaint: severe neck pain This is a 77-year-old male with a past medical history as noted below presented to the emergency department with complaints of acute onset of neck pain with radiation to bilateral shoulders however worse to the right shoulder as well as right ribs. The patient reports that he reached up to hang a pinwheel on a tree yesterday otherwise nothing abnormal. He denies excessive upper musculoskeletal use, denies yd work or any activities out of ordinary. Patient reports that later on in the evening he started to feel an ache to the back of his neck. He reports that he attempted to stretch the area and moves his neck in all directions however this did not help so he took 2 Tylenol segment to bed early. This morning, patient reports that when he woke up, he was in ?severe pain? and could barely move his neck so he came into the emergency department for the evaluation. On EMS arrival he was noted to be 93% on room air, patient's oxygen baseline ranges around 95%, he reports he does not wear chronic oxygen at home however does wear CPAP at bedtime. At this time, patient denying urinary/bowel incontinence, dizziness, vision, shortness of breath, weight gain, chest or abdominal pain, fevers, chills or leg discomfort. CT cervical spine:Degenerative disc changes C5-C6 and C7-T1 disc levels with ventral and posterior spondylosis. There is AP canal stenosis C5-C6 disc level from disc bulge/osteophyte complex. There is a small osteophyte/bone fragment within the right neural foramina narrowing the neural foramina and likely impinging the nerve root. This could explain patient's right-sided neck pain. CT angiogram of chest with/without: No evidence of pulmonary embolism. Low lung volumes and subsegmental atelectasis at the lung bases. Enlarged heart. Probable hepatosplenomegaly. VTE: negative EKG: Atrial sensed ventricular paced rhythm with prolonged AV conduction, no significant change from previous US venous ultrasound Doppler right lower extremity: No DVT demonstrated in the right lower extremity. Initial laboratory results: WBC 3.5, H/H 9.2/28.7, platelets 77, PT/INR 14.7/1.3, D-dimer 250, chloride 109, BUN/creatinine 28/1.47, random glucose 250, Ca 7.9, total bilirubin 1.3, AST/ALT 39/32, alk-phos 167, troponin high sensitivity 12.1, BNP 287, total protein 6.2, albumin 3.3, lipase 79. In the emergency department the above was performed , Neurosurgery was consulted who recommended MRI as well as dexamethasone. Patient received 10 mg IVP dexamethasone, 3 mL of albuterol/ipratropium, a total of 75 mg IVP Benadryl, 2 mg iIV morphine sulfate, 4 mg IVP ondansetron, 500 mL NS, 5 mg p.o. oxycodone, 10 mg p.o. Flexeril and a lidocaine patch was applied. The decision was made to admit patient for medical management. Review of Systems Review of Systems: A complete 12 point review of systems was performed and are negative if not noted in HPI. [facility] Medical History Acute lower gastrointestinal bleeding Aortic stenosis CAD (coronary artery disease) Chronic fatigue COVID-19 vaccine series completed Diabetes type 2, uncontrolled Diabetic nephropathy associated with type 2 diabetes mellitus Diabetic 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 associated with type 2 diabetes mellitus DMII (diabetes mellitus, type 2) KOEHLER (dyspnea on exertion) Dyslipidemia Esophageal varices without bleeding GERD (gastroesophageal reflux disease) History of prostate cancer HTN (hypertension) Hypertension IBS (irritable colon syndrome) Iron deficiency anemia [facility] (current) use of insulin On beta kayy at home ANUJA on CPAP Polyneuropathy Prostate cancer Spinal stenosis Varices of esophagus determined by endoscopy Family History Father CVD (cardiovascular disease) Past heart attack Mother CVD (cardiovascular disease) Brain cancer Heart problem Daughter Breast cancer Sister Breast cancer Son Alive and well Family/Other Myocardial infarction Liver cancer Surgical History H/O cataract extraction History of colonoscopy History of heart artery stent History of surgery History of surgery History of transurethral resection of prostate Hx of colonoscopy Hx of endoscopy Hx of esophagogastroduodenoscopy Social History Household Members: Spouse Housing: House Are you a primary home care companion to a significant other at home: No Do you presently have visiting nurse or other home services: No Alcohol intake: never Patient Tobacco Use Status: Never used Tobacco Smoked in Last 30 Days: No e-Cigarette/Vaping Use: Never Used Second Hand Smoke Exposure: No Use of substances other than those prescribed or required for medical reasons: No Have you been hit, kicked, punched, or otherwise hurt by someone within the past year? If so, by whom?: No Do you feel safe in your current relationship?: No Is there a partner from a previous relationship who is making you feel unsafe now?: No Are you made to feel afraid or neglected: No Advance Directives: No Do you have thoughts of harming others: None Do you have a plan to hurt others: No Plan Recently lost weight without trying: No Nutrition Risks: No Nutritional Risk Poor oral hygiene: No service: Yes Current occupational status: retired Cognitive needs: No Hearing needs: No Vision needs: Yes Meds Allergies Allergy/AdvReac Type Severity Reaction Status Date / Time lisinopril [From ZESTRIL] Allergy Severe UNABLE TO Verified 10/20/22 14:56 BREATH dextran 40 [DEXTRAN 40] Allergy Intermediate tachycardia Verified 10/20/22 14:56 latex [LATEX] Allergy Mild BLISTERS Verified 10/20/22 14:56 cyclobenzaprine Allergy Unknown Unknown Verified 10/20/22 14:56 [From Flexeril] egg Allergy Unknown unknown Verified 10/20/22 14:56 Iodinated Contrast Media Allergy Unknown UNKNOWN Verified 10/20/22 14:56 [CONTRAST,IV] tizanidine [From Zanaflex] Allergy Unknown Hallucinati Verified 10/20/22 14:56 ons pregabalin AdvReac Unknown hallucinati Verified 10/20/22 14:56 ons Active Medications: Current Medications Acetaminophen (Acetaminophen Supp 650 Mg Supp.Rect) 650 mg IL Q6H PRN PRN Reason: Pain, Mild (Pain Scale 1-3) Dexamethasone Sodium Phosphate (Dexamethasone Sod Phosphate 4 Mg/Ml Vial) 4 mg IVPUSH Q6H PANFILO Heparin Sodium (Porcine) (Heparin Sodium,Porcine 5,000 Unit/Ml Vial) 5,000 unit SUBCUT Q12H PANFILO Ondansetron HCl (Ondansetron Hcl 4 Mg/2 Ml Vial) 4 mg IVPUSH Q8H PRN PRN Reason: Nausea and Vomiting Pharmacy Consult (Consult Rx Perform Med Rec) 1 each MISCELLANE ONCE PRN PRN Reason: Consult order Senna (Sennosides 8.6 Mg Tablet) 17.2 mg PO BEDTIME PRN PRN Reason: Constipation Sodium Chloride (0.9 % Sodium Chloride Flush 3 Ml Syringe) 3 ml [facility] Home Medications Medication Instructions Recorded Confirmed Last Taken Type ferrous sulfate 325 mg (65 mg 325 mg PO BEDTIME 10/17/20 12/29/22 12/28/22 History iron) tablet clopidogrel 75 mg tablet 1 tab PO DAILY 06/18/22 12/29/22 12/29/22 History metoprolol succinate 100 mg 100 mg PO DAILY 09/03/22 12/29/22 12/29/22 History tablet,extended release 24 hr torsemide 20 mg tablet 20 mg PO DAILY 09/03/22 12/29/22 12/29/22 History cyanocobalamin (vitamin B-12) 500 1,000 mcg PO BEDTIME 12/29/22 12/29/22 12/28/22 History mcg tablet dulaglutide 0.75 mg/0.5 mL 0.75 mg subcut TU@0900 12/29/22 12/29/22 12/23/22 History subcutaneous pen injector (Trulicity) insulin degludec 200 unit/mL (3 64 unit subcut BEDTIME 12/29/22 12/29/22 12/28/22 History mL) subcutaneous pen (Tresiba FlexTouch U-200 insulin) omeprazole 20 mg capsule,delayed 20 mg PO BID@0630,1630 12/29/22 12/29/22 12/29/22 History release Physical Exam Vital Signs and Narrative: Vital Signs: Last Vital Signs Temp 98.5 F 12/29/22 16:48 Pulse 80 12/29/22 16:48 Resp 15 12/29/22 16:48 BP 139/58 L 12/29/22 16:48 Pulse Ox 93 12/29/22 16:48 O2 Del Method Nasal Cannula 12/29/22 16:48 O2 Flow Rate 2 12/29/22 16:48 Oxygen Flow Rate 2 12/29/22 05:01 BMI result Body Mass Index 30.5 Const: Other: General: Appears stated age, in no acute distress, answers questions accurately and appropriately. Head: Normocephalic, atraumatic Neck: Cervical midline tenderness noted especially the right of midline with continued tenderness noted to right paraspinal/shoulder. Patient is refusing to turn his head side to side or up/down secondary to pain. Skin: Warm and well perfused, no obvious lesions, bruises, open wounds or sores Cardiology: Paced rhythm on monitor, no obvious rubs, gallops or clicks, no JVD or carotid bruits appreciated Respiratory: Lungs CTAB, no inspiratory wheezing, rales or rhonchi, no increased accessory muscle use noted Abdomen: Soft, non distended, nontender, bowel sounds active in all 4 quadrants, no abdominal guarding or [place] sign Musculoskeletal: Tenderness noted assessment of right lateral ribs. Able to move all extremities on command, difficulty extending right upper extremity secondary to neck pain. Extremity: 1+ pitting edema noted to right lower extremity, no tenderness or redness noted bilateral lower extremities. Neuro: Alert and oriented x3, no obvious focal deficits, Psych: Calm, appropriate, follows commands, no agitation restlessness noted Results Labs 12/29/22 04:56 12/29/22 04:56 Labs: Laboratory Results - last 24 hr 12/29/22 12/29/22 12/29/22 04:56 04:56 04:56 MCV 97.6 MCH 31.3 MCHC 32.1 RDW 15.0 Plt Count 77 L MPV 10.3 Immature Gran % (Auto) 0.9 H Neut % (Auto) 78.0 H Lymph % (Auto) 8.3 L [place] % (Auto) 11.1 H Eos % (Auto) 1.1 Baso % (Auto) 0.6 Lymph # (Auto) 0.3 L [place] # (Auto) 0.4 Eos # (Auto) 0.0 Baso # (Auto) 0.0 Abs Immat Gran (auto) 0.03 Absolute Neuts (auto) 2.7 Absolute Nucleated RBC 0.000 Nucleated RBC % (auto) 0.0 PT INR D-Dimer High Sensitivty Anion Gap 13 Estim Creat Clear Calc 46.0 Estimated GFR 46 POC Glucose Random Glucose 250 H Calcium 7.9 L Total Bilirubin 1.3 H AST 39 H ALT 32 Alkaline Phosphatase 167 H Troponin I High Sens B-Natriuretic Peptide 287 H Total Protein 6.2 L Albumin 3.3 L Lipase 79 H Urine Color Urine Appearance Urine pH Ur Specific [place] Urine Protein Urine Glucose (UA) Urine Ketones Urine Blood Urine Nitrite Ur Leukocyte Esterase Urine RBC Urine WBC Ur Squamous Epith Cells Urine Bacteria Hyaline Casts Influenza Type A (PCR) Influenza Type B (PCR) RSV RNA Qual (PCR) SARS-CoV-2 RNA (RT-PCR) 12/29/22 12/29/22 12/29/22 06:00 07:26 07:26 MCV MCH MCHC RDW Plt Count MPV Immature Gran % (Auto) Neut % (Auto) Lymph % (Auto) [place] % (Auto) Eos % (Auto) Baso % (Auto) Lymph # (Auto) [place] # (Auto) Eos # (Auto) Baso # (Auto) Abs Immat Gran (auto) Absolute Neuts (auto) Absolute Nucleated RBC Nucleated RBC % (auto) PT 14.7 H INR 1.3 H D-Dimer High Sensitivty Anion Gap Estim Creat Clear Calc Estimated GFR POC Glucose Random Glucose Calcium Total Bilirubin AST ALT Alkaline Phosphatase Troponin I High Sens 12.1 B-Natriuretic Peptide Total Protein Albumin Lipase Urine Color Yellow Urine Appearance Clear Urine pH 6.0 Ur Specific [place] 1.025 Urine Protein Negative Urine Glucose (UA) >=1000 H Urine Ketones Negative Urine Blood Negative Urine Nitrite Negative Ur Leukocyte Esterase Negative Urine RBC 0-2 Urine WBC 0-5 Ur Squamous Epith Cells 0-2 Urine Bacteria None Seen Hyaline Casts 0-2 Influenza Type A (PCR) Influenza Type B (PCR) RSV RNA Qual (PCR) SARS-CoV-2 RNA (RT-PCR) 12/29/22 12/29/22 12/29/22 07:26 11:34 14:26 MCV MCH MCHC RDW Plt Count MPV Immature Gran % (Auto) Neut % (Auto) Lymph % (Auto) [place] % (Auto) Eos % (Auto) Baso % (Auto) Lymph # (Auto) [place] # (Auto) Eos # (Auto) Baso # (Auto) Abs Immat Gran (auto) Absolute Neuts (auto) Absolute Nucleated RBC Nucleated RBC % (auto) PT INR D-Dimer High Sensitivty 250 Anion Gap Estim Creat Clear Calc Estimated GFR POC Glucose Random Glucose Calcium Total Bilirubin AST ALT Alkaline Phosphatase Troponin I High Sens 13.7 B-Natriuretic Peptide Total Protein Albumin Lipase Urine Color Urine Appearance Urine pH Ur Specific [place] Urine Protein Urine Glucose (UA) Urine Ketones Urine Blood Urine Nitrite Ur Leukocyte Esterase Urine RBC Urine WBC Ur Squamous Epith Cells Urine Bacteria Hyaline Casts Influenza Type A (PCR) NEGATIVE Influenza Type B (PCR) NEGATIVE RSV RNA Qual (PCR) NEGATIVE SARS-CoV-2 RNA (RT-PCR) NEGATIVE 12/29/22 14:29 MCV MCH MCHC RDW Plt Count MPV Immature Gran % (Auto) Neut % (Auto) Lymph % (Auto) [place] % (Auto) Eos % (Auto) Baso % (Auto) Lymph # (Auto) [place] # (Auto) Eos # (Auto) Baso # (Auto) Abs Immat Gran (auto) Absolute Neuts (auto) Absolute Nucleated RBC Nucleated RBC % (auto) PT INR D-Dimer High Sensitivty Anion Gap Estim Creat Clear Calc Estimated GFR POC Glucose 142 H Random Glucose Calcium Total Bilirubin AST ALT Alkaline Phosphatase Troponin I High Sens B-Natriuretic Peptide Total Protein Albumin Lipase Urine Color Urine Appearance Urine pH Ur Specific [place] Urine Protein Urine Glucose (UA) Urine Ketones Urine Blood Urine Nitrite Ur Leukocyte Esterase Urine RBC Urine WBC Ur Squamous Epith Cells Urine Bacteria Hyaline Casts Influenza Type A (PCR) Influenza Type B (PCR) RSV RNA Qual (PCR) SARS-CoV-2 RNA (RT-PCR) Imaging Radiologist's Impressions: Impressions Cervical Spine CT 12/29/22 08:41 IMPRESSION: Degenerative disc changes C5-C6 and C7-T1 disc levels with ventral and posterior spondylosis. There is AP canal stenosis C5-C6 disc level from disc bulge/osteophyte complex. There is a small osteophyte/bone fragment within the right neural foramina narrowing the neural foramina and likely impinging the nerve root. This could explain patient's right-sided neck pain. Fleischner guidelines were followed. Chest CTA 12/29/22 08:47 IMPRESSION: No evidence of pulmonary embolism. Low lung volumes and subsegmental atelectasis at the lung bases. Enlarged heart. Probable hepatosplenomegaly. VTE: negative Venous Duplex 12/29/22 08:57 IMPRESSION: No DVT demonstrated in the right lower extremity. Assessment and Plan (1) Acute neck pain: Status: Acute (2) Hypoxia: Status: Acute Plan This is a 77-year-old male with a past medical history of hypertension, hyperlipidemia, irritable bowel syndrome, ANUJA maintained on CPAP, aortic stenosis, coronary artery disease will be admitted due to acute neck pain with radicular pain to right shoulder acute hypoxic respiratory failure likely secondary to narcotic administration. ACUTE ISSUES Acute hypoxic respiratory failure History of ANUJA on CPAP -Patient's O2 saturation noted to be 89% while on room air in ED. Patient is not oxygen dependent however does use CPAP at nighttime -Chest CT:No evidence of pulmonary embolism. Low lung volumes and subsegmental atelectasis at the lung bases. Enlarged heart. Probable hepatosplenomegaly. -Venous duplex right lower extremity: No DVT in the right lower extremity. -Patient not appear to be in exacerbation at this time. Possible narcotic induced hypoxia. -Wean off oxygen as tolerated. CPAP ordered for bedtime. -continue to monitor O2 saturation Acute neck pain with radicular right shoulder pain -Patient initially presented due to acute onset neck and right shoulder pain. -There is no report of trauma. Patient denies falls/excessive upper musculoskeletal use. -CT cervical spine without contrast:Degenerative disc changes C5-C6 and C7-T1 disc levels with ventral and posterior spondylosis. There is AP canal stenosis C5-C6 disc level from disc bulge/osteophyte complex. There is a small osteophyte/bone fragment within the right neural foramina narrowing the neural foramina and likely impinging the nerve root. This could explain patient's right-sided neck pain. - ED provider did consult [facility] neurosurgery, per ED provider note the recommendations are: MR, 10 mg IV Decadron followed by 4 mg IV Decadron q.6 hours. - MRI cervical spine unable to be obtained today, will be performed tomorrow. - Pain management. Neurosurgery consult recommended -continue neuro checks. CHRONIC MEDICAL ISSUES: Chronic heart failure -status post TAVR/pacemaker placement. Not currently appear in exacerbation. Denies weight gain. Continue home diuretic. Strict I&Os/daily weights. History of adenocarcinoma of prostate treated with laser therapy/radiation in 2013 Urinary retention BPH -Continue finasteride/tamsulosin as well as bethanechol 25 mg b.i.d.. -Patient currently denying urinary retention/issues. As needed bladder scan and straight cath orders entered. -F/U PCP Cirrhosis of liver History of esophageal varices - Patient has a known history of cirrhosis of the liver with esophageal varices. - CT chest angiogram again reveals atelectasis and probable splenomegaly possibly trace ascites - Mentation clear. Currently denying abdominal pain/discomfort. -patient should follow up outpatient with Gastroenterology. Anemia, chronic -Hgb & Hct is out baseline. Patient denies signs of bleeding. Continue to monitor. Oral iron continued. Outpatient by Dr. Nielsen Hypertension -Continue antihypertensives holding parameters. Monitor blood pressures. Hyperlipidemia -Statin continued. Insulin-dependent diabetes mellitus Diabetic neuropathy -Insulin sliding scale with nutrition. Hypoglycemia protocol in place. Continue Lantus. Gabapentin dose has been decreased as patient will be started on opioids. Diabetic diet. Gastroesophageal reflux disease -Oral PPI continued. OTHER: Patient is a full code DVT prophylaxis-intermittent sequential boots. Hold chemical DVT prophylaxis due to thrombocytopenia. HCP/person to contact is patient's Myesha Lopes, Son Blaise Lopes can also be contacted, Time Spent With Patient Time: Total time managing care of this patient today ____ minutes. Quality Stroke Does the patient have a stroke diagnosis?: No VTE Prior VTE?: No VTE Risk Level:: Medical - moderate - high VTE Device Contraindication: N/A - Device Ordered VTE Drug Contraindication: N/A - Med Ordered
[2022-12-29 19:09] LABS: Glucose, Whole Blood 202 mg/dL (60-115)
[2022-12-29] MEDS: Heparin Sodium,Porcine 5,000 UNIT/ML VIAL 5000 UNIT SUBCUT (20:13)
[2022-12-29] MEDS: Atorvastatin Calcium 80 MG TABLET PO (20:13)
[2022-12-29] MEDS: Bethanechol Chloride 25 MG TABLET PO (20:13)
[2022-12-29] MEDS: Ezetimibe 10 MG TABLET PO (20:13)
[2022-12-29] MEDS: Cyanocobalamin (Vitamin B-12) 1,000 MCG TABLET 1000 MCG PO (20:13)
[2022-12-29] MEDS: Ferrous Sulfate 324 MG TABLET.DR PO (20:13)
[2022-12-29] MEDS: hydrALAZINE HCl 20 MG/ML VIAL 5 MG IVPUSH (20:13)
[2022-12-29] MEDS: dexAMETHasone sod phosphate 4 MG/ML VIAL IVPUSH (20:14)
[2022-12-29 20:52] LABS: Glucose, Whole Blood 265 mg/dL (60-115)
[2022-12-29] MEDS: Insulin Lispro 100 UNIT/ML 3 ML VIAL SUBCUT (20:53)
[2022-12-29] MEDS: Insulin Glargine,Hum.rec.anlog 100 UNIT/ML 10 ML VIAL 45 UNIT SUBCUT (20:55)
[2022-12-29] MEDS: 0.9 % Sodium Chloride Flush 3 ML SYRINGE IVFLUSH (22:41)
[2022-12-30] MEDS: dexAMETHasone sod phosphate 4 MG/ML VIAL IVPUSH ×4 (01:44→20:10)
[2022-12-30] MEDS: Acetaminophen 325 MG TABLET 650 MG PO (01:49)
[2022-12-30] MEDS: Morphine Sulfate 2 MG/ML CARTRIDGE IVPUSH ×4 (01:50→20:10)
[2022-12-30 04:00] VITALS: BP 119/56; PULSE 67; RESP 20; TEMP 37.1; O2SAT 94
[2022-12-30] MEDS: Omeprazole 20 MG CAPSULE.DR PO ×2 (05:37→16:43)
[2022-12-30] MEDS: Heparin Sodium,Porcine 5,000 UNIT/ML VIAL 5000 UNIT SUBCUT (05:37)
[2022-12-30 07:13] VITALS: BP 152/68; PULSE 78; RESP 20; TEMP 37; O2SAT 96
[2022-12-30 07:14] LABS: Hematocrit 27.6 % (42.0-52.0); Hemoglobin 8.7 g/dl (14.0-18.0); Mean Corpuscular HGB Conc 31.5 g/dl (31.0-36.0); Mean Corpuscular Volume 98.2 fL (80.0-98.0); Mean Platelet Volume 11.4 fL (9.4-12.4); Red Blood Count 2.81 X10*6/uL (4.60-5.80); Red Cell Distribution Width 14.4 % (11.0-16.0); White Blood Count 3.4 X10*3/uL (4.8-10.8)
[2022-12-30 07:27] LABS: Platelet Count 92 X10*3/uL (160-400)
[2022-12-30 07:33] LABS: Glucose, Whole Blood 255 mg/dL (60-115)
[2022-12-30 07:38] LABS: Anion Gap 10 (12-20); Blood Urea Nitrogen 31 mg/dL (9-16); Calcium 7.9 mg/dL (8.4-10.2); Carbon Dioxide 24 mmol/L (22-29); Chloride 111 mmol/L (96-108); Creatinine Clr Calc Pharmacy 54.2; Estimated Glomerular Filt Rate 56; Glucose Random 265 mg/dL (60-115); Potassium 4.2 mmol/L (3.3-5.1); Sodium 141 mmol/L (135-145)
[2022-12-30] MEDS: Insulin Lispro 100 UNIT/ML 3 ML VIAL SUBCUT ×4 (07:54→20:11)
[2022-12-30] MEDS: Finasteride 5 MG TABLET PO (07:55)
[2022-12-30] MEDS: Torsemide 20 MG TABLET PO (07:55)
[2022-12-30] MEDS: Tamsulosin HCL 0.4 MG CAPSULE PO (07:55)
[2022-12-30] MEDS: Gabapentin 100 MG CAPSULE 200 MG PO ×2 (07:55→20:11)
[2022-12-30] MEDS: Empagliflozin 10 MG TABLET PO (07:55)
[2022-12-30] MEDS: Bethanechol Chloride 25 MG TABLET PO ×2 (07:55→20:11)
[2022-12-30] MEDS: Clopidogrel Bisulfate 75 MG TABLET PO (07:55)
[2022-12-30] MEDS: 0.9 % Sodium Chloride Flush 3 ML SYRINGE IVFLUSH ×2 (07:55→16:44)
[2022-12-30] MEDS: Metoprolol Succinate ER 100 MG TAB.ER.24H PO (07:56)
--- NOTE | 2022-12-30 09:29 | MHC.CM.PN ---
CM met with Patient at bedside and addressed IMM with him (original was given to Patient and a copy has been placed on the chart). Patient lives in a house with his /HCP and he required no services nor DME [employer]. Home/self care is the goal and CM has initiated and will follow for dc planning. Patient has received Moderna/Covid vax x3 and the PCP/TRAIN DRIVER is Roberto Carlos Cisneros.
--- NOTE | 2022-12-30 10:38 | P.PNIM_ITS ---
Subjective Subjective Date of Service: 12/30/22 Interval History: neck pain Physical Exam Vital Signs: Vital Signs: Last Vital Signs Temp 98.6 F 12/30/22 07:13 Pulse 78 12/30/22 07:13 Resp 20 12/30/22 07:13 BP 152/68 H 12/30/22 07:13 Pulse Ox 96 12/30/22 07:13 O2 Del Method Nasal Cannula 12/30/22 07:13 O2 Flow Rate 2 12/30/22 07:13 Oxygen Flow Rate 2 12/29/22 05:01 BMI result Body Mass Index 30.0 General: AO X 3, no acute distress Resp: CTA bilateral, no accessory muscles used CVS: S1,S2,RRR GI: soft, non tender, non distended Neuro: motor grossly intact, alert Psych: appropriate affect, appropriate insight Objective Data Active Medications Acetaminophen (Acetaminophen 325 Mg Tablet) 650 mg PO Q6H PRN PRN Reason: FEVER, Pain, (Pain Scale 1-3) Last Admin: 12/30/22 01:49 Dose: 650 mg Documented By: AILEEN Alprazolam (Alprazolam 0.5 Mg Tablet) 0.5 mg PO BID PRN PRN Reason: Anxiety Atorvastatin Calcium (Atorvastatin Calcium 80 Mg Tablet) 80 mg PO BEDTIME [facility] Last Admin: 12/29/22 20:13 Dose: 80 mg Documented By: AILEEN Bethanechol Chloride (Bethanechol Chloride 25 Mg Tablet) 25 mg PO BID [facility] Last Admin: 12/30/22 07:55 Dose: 25 mg Documented By: DOMENIC Clopidogrel Bisulfate (Clopidogrel Bisulfate 75 Mg Tablet) 75 mg PO DAILY [facility] Last Admin: 12/30/22 07:55 Dose: 75 mg Documented By: DOMENIC Cyanocobalamin (Cyanocobalamin (Vitamin B-12) 1,000 Mcg Tablet) 1,000 mcg PO BEDTIME [facility] Last Admin: 12/29/22 20:13 Dose: 1,000 mcg Documented By: AILEEN Dexamethasone Sodium Phosphate (Dexamethasone Sod Phosphate 4 Mg/Ml Vial) 4 mg IVPUSH Q6H [facility] Last Admin: 12/30/22 07:55 Dose: 4 mg Documented By: DOMENIC Ezetimibe (Ezetimibe 10 Mg Tablet) 10 mg PO BEDTIME [facility] Last Admin: 12/29/22 20:13 Dose: 10 mg Documented By: AILEEN Empagliflozin (Empagliflozin 10 Mg Tablet) 10 mg PO DAILY [facility] Last Admin: 12/30/22 07:55 Dose: 10 mg Documented By: DOMENIC Ferrous Sulfate (Ferrous Sulfate 324 Mg Tablet.Dr) 324 mg PO BEDTIME [facility] Last Admin: 12/29/22 20:13 Dose: 324 mg Documented By: AILEEN Finasteride (Finasteride 5 Mg Tablet) 5 mg PO DAILY [facility] Last Admin: 12/30/22 07:55 Dose: 5 mg Documented By: DOMENIC Gabapentin (Gabapentin 100 Mg Capsule) 200 mg PO BID [facility] Stop: 01/01/23 09:00 Last Admin: 12/30/22 07:55 Dose: 200 mg Documented By: DOMENIC Glucose (Glucose Gel 15 Gm Gel..Gram.) 15 gm PO Q15M PRN; Protocol PRN Reason: per Hypoglycemia Standing Ord. Heparin Sodium (Porcine) (Heparin Sodium,Porcine 5,000 Unit/Ml Vial) 5,000 unit SUBCUT Q12H [facility] Last Admin: 12/30/22 05:37 Dose: 5,000 unit Documented By: AILEEN Dextrose (D10) 250 mls @ 750 mls/hr IV Q15M PRN; Protocol PRN Reason: per Hypoglycemia Standing Ord. Insulin Glargine (Insulin Glargine,Hum.Rec.Anlog 100 Unit/Ml 10 Ml Vial) 45 unit SUBCUT BEDTIME [facility] Last Admin: 12/29/22 20:55 Dose: 45 unit Documented By: AILEEN Insulin Human Lispro (Insulin Lispro 100 Unit/Ml 3 Ml Vial) 0 unit SUBCUT QIDACHS [facility]; Protocol Last Admin: 12/30/22 07:54 Dose: 6 unit Documented By: DOMENIC Metoprolol Succinate (Metoprolol Succinate Er 100 Mg Tab.Er.24h) 100 mg PO DAILY [facility]; Protocol Last Admin: 12/30/22 07:56 Dose: 100 mg Documented By: DOMENIC Morphine Sulfate (Morphine Sulfate 2 Mg/Ml Cartridge) 2 mg IVPUSH Q4H PRN; Protocol PRN Reason: Pain, Moderate (Pain Scale 4-6 Last Admin: 12/30/22 05:50 Dose: 2 mg Documented By: AILEEN Morphine Sulfate (Morphine Sulfate 4 Mg/Ml Cartridge) 4 mg IVPUSH Q4H PRN; Protocol PRN Reason: Pain, Severe (Pain Scale 7-10) Omeprazole (Omeprazole 20 Mg Capsule.) 20 mg PO BID@0630,1630 [facility] Last Admin: 12/30/22 05:37 Dose: 20 mg Documented By: AILEEN Ondansetron HCl (Ondansetron Hcl 4 Mg/2 Ml Vial) 4 mg IVPUSH Q8H PRN PRN Reason: Nausea and Vomiting Pharmacy Consult (Consult Rx Perform Med Rec) 1 each MISCELLANE ONCE PRN PRN Reason: Consult order Senna (Sennosides 8.6 Mg Tablet) 17.2 mg PO BEDTIME PRN PRN Reason: Constipation Sodium Chloride (0.9 % Sodium Chloride Flush 3 Ml Syringe) 3 ml IVFLUSH QSHIFT [facility] Last Admin: 12/30/22 07:55 Dose: 3 ml Documented By: DOMENIC Tamsulosin HCl (Tamsulosin Hcl 0.4 Mg Capsule) 0.4 mg PO DAILY [facility] Last Admin: 12/30/22 07:55 Dose: 0.4 mg Documented By: DOMENIC Torsemide (Torsemide 20 Mg Tablet) 20 mg PO DAILY [facility]; Protocol Last Admin: 12/30/22 07:55 Dose: 20 mg Documented By: DOMENIC Labs 12/30/22 06:21 12/30/22 06:21 Labs: Laboratory Results - last 24 hr 12/29/22 12/29/22 12/29/22 11:34 14:26 14:29 MCV MCH MCHC RDW Plt Count MPV Absolute Nucleated RBC Nucleated RBC % (auto) Anion Gap Estim Creat Clear Calc Estimated GFR POC Glucose 142 H Random Glucose Calcium Troponin I High Sens 13.7 Influenza Type A (PCR) NEGATIVE Influenza Type B (PCR) NEGATIVE RSV RNA Qual (PCR) NEGATIVE SARS-CoV-2 RNA (RT-PCR) NEGATIVE 12/29/22 12/29/22 12/30/22 18:50 20:47 06:21 MCV 98.2 H MCH 31.0 MCHC 31.5 RDW 14.4 Plt Count 92 L MPV 11.4 Absolute Nucleated RBC 0.000 Nucleated RBC % (auto) 0.0 Anion Gap Estim Creat Clear Calc Estimated GFR POC Glucose 202 H 265 H Random Glucose Calcium Troponin I High Sens Influenza Type A (PCR) Influenza Type B (PCR) RSV RNA Qual (PCR) SARS-CoV-2 RNA (RT-PCR) 12/30/22 12/30/22 06:21 07:10 MCV MCH MCHC RDW Plt Count MPV Absolute Nucleated RBC Nucleated RBC % (auto) Anion Gap 10 L Estim Creat Clear Calc 54.2 Estimated GFR 56 POC Glucose 255 H Random Glucose 265 H Calcium 7.9 L Troponin I High Sens Influenza Type A (PCR) Influenza Type B (PCR) RSV RNA Qual (PCR) SARS-CoV-2 RNA (RT-PCR) Assessment and Plan (1) Hypoxia: Status: Acute Plan 77M PMH hypertension, hyperlipidemia, irritable bowel syndrome, ANUJA maintained on CPAP, aortic stenosis, coronary artery disease presented with severe acute neck pain, also found to be hypoxic Acute hypoxic respiratory failure History of ANUJA on CPAP wean o2 as tolerated Acute neck pain with radicular right shoulder pain decadron, MRI (has pacer, needs company clearance), morphine Chronic diastolic chf -status post TAVR/pacemaker placement continue torsemide History of adenocarcinoma of prostate treated with laser therapy/radiation in 2013 Urinary retention BPH Continue finasteride/tamsulosin as well as bethanechol 25 mg b.i.d..? Cirrhosis of liver History of esophageal varices Patient has a known history of cirrhosis of the liver with esophageal varices.? patient should follow up outpatient with Gastroenterology. Anemia, chronic Hgb & Hct is at baseline.? Patient denies signs of bleeding.? Continue to monitor.? Oral iron continued.? Outpatient by Dr. Nielsen Hyperlipidemia Statin continued.? DM 2 Diabetic neuropathy insnulin, pocs DVT prophylaxis-lovenox full code reason for continued hospitalization:still in severe pain Time Spent With Patient Time: Total time managing care of this patient today ____ minutes. Quality Stroke Does the patient have a stroke diagnosis?: No VTE Prior VTE?: No VTE Risk Level:: Medical - moderate - high VTE Device Contraindication: N/A - Device Ordered VTE Drug Contraindication: N/A - Med Ordered
[2022-12-30 11:19] LABS: Glucose, Whole Blood 335 mg/dL (60-115)
--- NOTE | 2022-12-30 11:24 | P.CDIM_ITS ---
PROVIDER RESPONSE TEXT: To clarify, the appropriate diagnosis supported by the clinical indicators: Unable to determine QUERY TEXT: PHYSICIAN'S DOCUMENTATION REQUEST Date of Query: 12/30/2022 11:12 AM EDT Patient Name: Kwaku Lopes Admit Date: 12/29/2022 Dear Tai Carrion, A review of the medical record indicates additional documentation may be needed. Please review below and update the documentation accordingly. Clinical Indicators: PN 12/29 - DM 2, Diabetic neuropathy Insulin, pocs Please clarify the following regarding the Complications of Diabetes Mellitus (DM): Specifics Please describe any known complications Neuropathy: Autonomic, Mononeuropathy, Peripheral, Polyneuropathy or other Unable to determine Other (explain) Clinically unable to determine (explain) Thank you, Ari[place]na La, CCS, CDIS Use of terms such as suspected, likely, concern for, or probable (associated with a specific diagnosi s that is being evaluated, monitored, or treated as if it exists) are acceptable and can be coded in the inpatient se tting, when documented at the time of discharge. Please use your independent medical judgment in providing your response. THIS QUERY IS PART OF THE PERMANENT MEDICAL RECORD
[2022-12-30] MEDS: Enoxaparin Sodium 40 MG/0.4 ML SYRINGE SUBCUT (11:31)
[2022-12-30 11:35] VITALS: BP 148/62; PULSE 70; RESP 20; TEMP 36.9; O2SAT 94
[2022-12-30 15:53] VITALS: BP 134/68; PULSE 89; RESP 18; TEMP 37.1; O2SAT 97
[2022-12-30 15:55] LABS: Glucose, Whole Blood 369 mg/dL (60-115)
[2022-12-30 19:30] VITALS: BP 136/61; PULSE 70; RESP 18; TEMP 37.1; O2SAT 96
[2022-12-30 19:32] LABS: Glucose, Whole Blood 321 mg/dL (60-115)
[2022-12-30] MEDS: Cyanocobalamin (Vitamin B-12) 1,000 MCG TABLET 1000 MCG PO (20:10)
[2022-12-30] MEDS: Ezetimibe 10 MG TABLET PO (20:10)
[2022-12-30] MEDS: Ferrous Sulfate 324 MG TABLET.DR PO (20:10)
[2022-12-30] MEDS: Atorvastatin Calcium 80 MG TABLET PO (20:10)
[2022-12-30] MEDS: Insulin Glargine,Hum.rec.anlog 100 UNIT/ML 10 ML VIAL 45 UNIT SUBCUT (20:15)
[2022-12-30 23:32] VITALS: BP 140/65; PULSE 67; RESP 15; TEMP 36.9; O2SAT 96
[2022-12-31] VITALS (7 sets, daily range): BP systolic 127–161; BP diastolic 60–89; PULSE 63–79; RESP 16–20; TEMP 36.6–37.1; O2SAT 93–96
[2022-12-31] MEDS: 0.9 % Sodium Chloride Flush 3 ML SYRINGE IVFLUSH ×4 (00:35→21:02)
[2022-12-31] MEDS: dexAMETHasone sod phosphate 4 MG/ML VIAL IVPUSH ×4 (00:35→21:00)
[2022-12-31] MEDS: Omeprazole 20 MG CAPSULE.DR PO ×2 (05:43→16:41)
[2022-12-31 07:12] LABS: Glucose, Whole Blood 234 mg/dL (60-115)
[2022-12-31] MEDS: Insulin Lispro 100 UNIT/ML 3 ML VIAL SUBCUT ×4 (07:56→21:01)
[2022-12-31] MEDS: Empagliflozin 10 MG TABLET PO (07:57)
[2022-12-31] MEDS: Metoprolol Succinate ER 100 MG TAB.ER.24H PO (07:57)
[2022-12-31] MEDS: Bethanechol Chloride 25 MG TABLET PO ×2 (07:57→21:02)
[2022-12-31] MEDS: Torsemide 20 MG TABLET PO (07:57)
[2022-12-31] MEDS: Finasteride 5 MG TABLET PO (07:57)
[2022-12-31] MEDS: Gabapentin 100 MG CAPSULE 200 MG PO ×2 (07:57→21:02)
[2022-12-31] MEDS: Tamsulosin HCL 0.4 MG CAPSULE PO (07:57)
[2022-12-31] MEDS: Clopidogrel Bisulfate 75 MG TABLET PO (07:57)
[2022-12-31 11:23] LABS: Glucose, Whole Blood 368 mg/dL (60-115)
[2022-12-31] MEDS: Enoxaparin Sodium 40 MG/0.4 ML SYRINGE SUBCUT (11:24)
[2022-12-31] MEDS: oxyCODONE HCl Immed Release 5 MG TABLET PO ×2 (11:25→21:12)
[2022-12-31 12:08] LABS: Glucose, Whole Blood 316 mg/dL (60-115)
--- NOTE | 2022-12-31 15:03 | P.PNIM_ITS ---
Subjective Subjective Date of Service: 12/31/22 Interval History: Still complaining of right-sided neck pain with right upper extremity radicular pain Review of Systems Denies chest pain Denies shortness of breath Denies nausea vomiting diarrhea Denies fever chills Physical Exam Vital Signs: Vital Signs: Last Vital Signs Temp 97.8 F 12/31/22 11:24 Pulse 63 12/31/22 11:24 Resp 20 12/31/22 11:24 BP 127/60 12/31/22 11:24 Pulse Ox 96 12/31/22 11:24 O2 Del Method Room Air 12/31/22 11:24 O2 Flow Rate 2 12/31/22 07:11 Oxygen Flow Rate 2 12/29/22 05:01 BMI result Body Mass Index 30.0 Const: Other: Awake alert uncomfortable appearing Resp: Other: Clear to auscultation bilaterally no rales rhonchi or wheezes Cardio: Other: No S4; positive S1-S2; no S3 murmurs rubs or gallops GI: Other: Soft nontender nondistended normoactive bowel sounds Extrem: Other: No edema bilaterally Objective Data Active Medications Acetaminophen (Acetaminophen 325 Mg Tablet) 650 mg PO Q6H PRN PRN Reason: FEVER, Pain, (Pain Scale 1-3) Last Admin: 12/30/22 01:49 Dose: 650 mg Documented By: AILEEN Alprazolam (Alprazolam 0.5 Mg Tablet) 0.5 mg PO BID PRN PRN Reason: Anxiety Atorvastatin Calcium (Atorvastatin Calcium 80 Mg Tablet) 80 mg PO BEDTIME [facility] Last Admin: 12/30/22 20:10 Dose: 80 mg Documented By: MOISE Bethanechol Chloride (Bethanechol Chloride 25 Mg Tablet) 25 mg PO BID [facility] Last Admin: 12/31/22 07:57 Dose: 25 mg Documented By: DOMENIC Clopidogrel Bisulfate (Clopidogrel Bisulfate 75 Mg Tablet) 75 mg PO DAILY [facility] Last Admin: 12/31/22 07:57 Dose: 75 mg Documented By: DOMENIC Cyanocobalamin (Cyanocobalamin (Vitamin B-12) 1,000 Mcg Tablet) 1,000 mcg PO BEDTIME [facility] Last Admin: 12/30/22 20:10 Dose: 1,000 mcg Documented By: MOISE Dexamethasone Sodium Phosphate (Dexamethasone Sod Phosphate 4 Mg/Ml Vial) 4 mg IVPUSH Q6H [facility] Last Admin: 12/31/22 14:25 Dose: 4 mg Documented By: DOMENIC Ezetimibe (Ezetimibe 10 Mg Tablet) 10 mg PO BEDTIME [facility] Last Admin: 12/30/22 20:10 Dose: 10 mg Documented By: MOISE Empagliflozin (Empagliflozin 10 Mg Tablet) 10 mg PO DAILY [facility] Last Admin: 12/31/22 07:57 Dose: 10 mg Documented By: DOMENIC Enoxaparin Sodium (Enoxaparin Sodium 40 Mg/0.4 Ml Syringe) 40 mg SUBCUT Q24H [facility] Last Admin: 12/31/22 11:24 Dose: 40 mg Documented By: DOMENIC Ferrous Sulfate (Ferrous Sulfate 324 Mg Tablet.Dr) 324 mg PO BEDTIME [facility] Last Admin: 12/30/22 20:10 Dose: 324 mg Documented By: MOISE Finasteride (Finasteride 5 Mg Tablet) 5 mg PO DAILY [facility] Last Admin: 12/31/22 07:57 Dose: 5 mg Documented By: DOMENIC Gabapentin (Gabapentin 100 Mg Capsule) 200 mg PO BID [facility] Stop: 01/01/23 09:00 Last Admin: 12/31/22 07:57 Dose: 200 mg Documented By: DOMENIC Glucose (Glucose Gel 15 Gm Gel..Gram.) 15 gm PO Q15M PRN; Protocol PRN Reason: per Hypoglycemia Standing Ord. Dextrose (D10) 250 mls @ 750 mls/hr IV Q15M PRN; Protocol PRN Reason: per Hypoglycemia Standing Ord. Insulin Glargine (Insulin Glargine,Hum.Rec.Anlog 100 Unit/Ml 10 Ml Vial) 45 unit SUBCUT BEDTIME [facility] Last Admin: 12/30/22 20:15 Dose: 45 unit Documented By: MOISE Insulin Human Lispro (Insulin Lispro 100 Unit/Ml 3 Ml Vial) 0 unit SUBCUT QIDACHS [facility]; Protocol Last Admin: 12/31/22 11:24 Dose: 10 unit Documented By: DOMENIC Metoprolol Succinate (Metoprolol Succinate Er 100 Mg Tab.Er.24h) 100 mg PO DAILY [facility]; Protocol Last Admin: 12/31/22 07:57 Dose: 100 mg Documented By: DOMENIC Morphine Sulfate (Morphine Sulfate 4 Mg/Ml Cartridge) 4 mg IVPUSH Q4H PRN; Protocol PRN Reason: Pain, Severe (Pain Scale 7-10) Omeprazole (Omeprazole 20 Mg Capsule.Dr) 20 mg PO BID@0630,1630 [facility] Last Admin: 12/31/22 05:43 Dose: 20 mg Documented By: WERO Ondansetron HCl (Ondansetron Hcl 4 Mg/2 Ml Vial) 4 mg IVPUSH Q8H PRN PRN Reason: Nausea and Vomiting Oxycodone HCl (Oxycodone Hcl Immed Release 5 Mg Tablet) 5 mg PO Q4H PRN PRN Reason: Pain, Moderate (Pain Scale 4-6 Last Admin: 12/31/22 11:25 Dose: 5 mg Documented By: DOMENIC Pharmacy Consult (Consult Rx Perform Med Rec) 1 each MISCELLANE ONCE PRN PRN Reason: Consult order Senna (Sennosides 8.6 Mg Tablet) 17.2 mg PO BEDTIME PRN PRN Reason: Constipation Sodium Chloride (0.9 % Sodium Chloride Flush 3 Ml Syringe) 3 ml IVFLUSH QSHIFT [facility] Last Admin: 12/31/22 14:26 Dose: 3 ml Documented By: DOMENIC Tamsulosin HCl (Tamsulosin Hcl 0.4 Mg Capsule) 0.4 mg PO DAILY [facility] Last Admin: 12/31/22 07:57 Dose: 0.4 mg Documented By: DOMENIC Torsemide (Torsemide 20 Mg Tablet) 20 mg PO DAILY [facility]; Protocol Last Admin: 12/31/22 07:57 Dose: 20 mg Documented By: DOMENIC Labs 12/30/22 06:21 12/30/22 06:21 Labs: Laboratory Results - last 24 hr 12/30/22 12/30/22 12/31/22 15:49 19:28 07:08 POC Glucose 369 H* 321 H 234 H 12/31/22 12/31/22 10:40 11:19 POC Glucose 316 H 368 H* Assessment and Plan (1) Acute respiratory failure with hypoxia: Status: Acute (2) Acute neck pain: Status: Acute (3) Diabetes type 2, uncontrolled: Status: Acute Plan 77M PMH hypertension, hyperlipidemia, irritable bowel syndrome, ANUJA maintained on CPAP, aortic stenosis, coronary artery disease presented with severe acute neck pain, also found to be hypoxic(likely multifactorial) 1.Acute hypoxic respiratory failure(resolved) -likely secondary to ANUJA/narcotic use -wean o2 as tolerated 2.Acute neck pain/radicular pain -continue Decadron as ordered -add oxycodone to pain regimen -await clearance for MRI 3.Chronic diastolic chf -status post TAVR/pacemaker placement -continue torsemide -adjust as indicated 4.Anemia -chronic/stable -continue iron supplementation -follow CBC 5.DM 2 -acceptable control on current therapies -continue lispro correctional scale -adjust as indicated lovenox full code Requires ongoing hospitalization to treat radicular pain pending workup Time Spent With Patient Time: Total time managing care of this patient today ____ minutes. Quality Stroke Does the patient have a stroke diagnosis?: No VTE Prior VTE?: No VTE Risk Level:: Medical - moderate - high VTE Device Contraindication: N/A - Device Ordered VTE Drug Contraindication: N/A - Med Ordered
[2022-12-31 16:14] LABS: Glucose, Whole Blood 375 mg/dL (60-115)
[2022-12-31] MEDS: Insulin Lispro 100 UNIT/ML 3 ML VIAL 10 UNIT SUBCUT (16:41)
[2022-12-31 20:11] LABS: Glucose, Whole Blood 287 mg/dL (60-115)
[2022-12-31] MEDS: Insulin Glargine,Hum.rec.anlog 100 UNIT/ML 10 ML VIAL 45 UNIT SUBCUT (21:01)
[2022-12-31] MEDS: Cyanocobalamin (Vitamin B-12) 1,000 MCG TABLET 1000 MCG PO (21:02)
[2022-12-31] MEDS: Atorvastatin Calcium 80 MG TABLET PO (21:02)
[2022-12-31] MEDS: Ferrous Sulfate 324 MG TABLET.DR PO (21:02)
[2022-12-31] MEDS: Ezetimibe 10 MG TABLET PO (21:02)
[2023-01-01 00:02] VITALS: PULSE 80; RESP 18; O2SAT 95
[2023-01-01] MEDS: dexAMETHasone sod phosphate 4 MG/ML VIAL IVPUSH ×2 (01:42→07:38)
[2023-01-01 03:59] VITALS: BP 142/67; PULSE 62; RESP 20; TEMP 37; O2SAT 98
[2023-01-01 04:28] VITALS: PULSE 62; RESP 20; O2SAT 98
[2023-01-01 05:27] VITALS: BMI 29.9
[2023-01-01] MEDS: Omeprazole 20 MG CAPSULE.DR PO (05:31)
[2023-01-01 06:43] LABS: MANUAL DIFF FLAG NO
[2023-01-01 07:11] LABS: Hematocrit 29.1 % (42.0-52.0); Hemoglobin 9.4 g/dl (14.0-18.0); Imm Gran Abs Auto 0.13 X10*3/uL (0.00-0.03); Imm Gran Pct Auto 2.2 % (0.0-0.4); Lymphocytes Absolute Auto 0.2 X10*3/uL (1.2-4.9); Lymphocytes Percent Auto 3.1 % (20-40); Mean Corpuscular HGB Conc 32.3 g/dl (31.0-36.0); Mean Corpuscular Hemoglobin 31.1 pg (27.0-33.0); Mean Corpuscular Volume 96.4 fL (80.0-98.0); Mean Platelet Volume 11.7 fL (9.4-12.4); Monocytes Absolute Auto 0.4 X10*3/uL (0.1-1.2); Monocytes Percent Auto 6.6 % (2-11); Neutrophils Absolute Auto 5.3 x10*3/uL (2.0-8.3); Neutrophils Percent Auto 88.1 % (45-73); Platelet Count 107 X10*3/uL (160-400); Red Blood Count 3.02 X10*6/uL (4.60-5.80)
[2023-01-01 07:18] VITALS: BP 159/72; PULSE 64; RESP 20; TEMP 36.6; O2SAT 95
[2023-01-01 07:24] LABS: Glucose, Whole Blood 235 mg/dL (60-115)
[2023-01-01 07:32] LABS: Alanine Aminotransferase 32 U/L (0-40); Alkaline Phosphatase 138 U/L (39-117); Anion Gap 13 (12-20); Aspartate Amino Transferase 31 U/L (5-37); Blood Urea Nitrogen 59 mg/dL (9-16); Calcium 8.1 mg/dL (8.4-10.2); Carbon Dioxide 24 mmol/L (22-29); Chloride 109 mmol/L (96-108); Creatinine Clr Calc Pharmacy 43.6; Estimated Glomerular Filt Rate 44; Glucose Fasting 246 mg/dL (60-99); Potassium 4.5 mmol/L (3.3-5.1); Sodium 141 mmol/L (135-145); Total Protein 5.9 g/dL (6.5-8.0)
[2023-01-01] MEDS: Insulin Lispro 100 UNIT/ML 3 ML VIAL SUBCUT ×2 (07:38→12:16)
[2023-01-01] MEDS: 0.9 % Sodium Chloride Flush 3 ML SYRINGE IVFLUSH (07:38)
[2023-01-01] MEDS: Finasteride 5 MG TABLET PO (07:39)
[2023-01-01] MEDS: Gabapentin 100 MG CAPSULE 200 MG PO (07:39)
[2023-01-01] MEDS: Tamsulosin HCL 0.4 MG CAPSULE PO (07:39)
[2023-01-01] MEDS: Torsemide 20 MG TABLET PO (07:39)
[2023-01-01] MEDS: Clopidogrel Bisulfate 75 MG TABLET PO (07:39)
[2023-01-01] MEDS: Empagliflozin 10 MG TABLET PO (07:39)
[2023-01-01] MEDS: Metoprolol Succinate ER 100 MG TAB.ER.24H PO (07:39)
[2023-01-01] MEDS: Bethanechol Chloride 25 MG TABLET PO (07:39)
[2023-01-01] MEDS: oxyCODONE HCl Immed Release 5 MG TABLET PO (07:48)
[2023-01-01 10:59] VITALS: BP 114/55; PULSE 64; RESP 20; TEMP 36.7; O2SAT 95
[2023-01-01 11:42] LABS: Glucose, Whole Blood 358 mg/dL (60-115)
[2023-01-01] MEDS: Insulin Lispro 100 UNIT/ML 3 ML VIAL 10 UNIT SUBCUT (12:17)
[2023-01-01] MEDS: Enoxaparin Sodium 40 MG/0.4 ML SYRINGE SUBCUT (12:17)
--- NOTE | 2023-01-01 12:30 | P.DS_ITS ---
DS: Providers Provider Date of Service: 01/01/23 Date of admission: 12/29/22 17:12 Date of discharge: 01/01/23 Primary care physician: Roberto Carlos Cisneros PA-C DS: Diagnosis Discharge Diagnosis (1) Acute neck pain: Status: Acute (2) Acute respiratory failure with hypoxia: Status: Acute (3) Diabetes type 2, uncontrolled: Status: Acute DS: Summary Hospital Course Hospital Course: 77-year-old male with a past medical history as noted below presented to the emergency department with complaints of acute onset of neck pain with radiation to bilateral shoulders however worse to the right shoulder as well as right ribs.? The patient reports that he reached up to hang a pinwheel on a tree yesterday otherwise nothing abnormal.? He denies excessive upper musculoskeletal use, denies yd work or any activities out of ordinary.? Patient reports that later on in the evening he started to feel an ache to the back of his neck.? He reports that he attempted to stretch the area and moves his neck in all directions however this did not help so he took 2 Tylenol segment to bed early.? This morning, patient reports that when he woke up, he was in ?severe pain? and could barely move his neck so he came into the emergency department for the evaluation.? On EMS arrival he was noted to be 93% on room air, patient's oxygen baseline ranges around 95%, he reports he does not wear chronic oxygen at home however does wear CPAP at bedtime.? At this time, patient denying urinary/bowel incontinence, dizziness, vision, shortness of breath, weight gain, chest or abdominal pain, fevers, chills or leg discomfort.? CT cervical spine:Degenerative disc changes C5-C6 and C7-T1 disc levels with ventral and posterior spondylosis. There is AP canal stenosis C5-C6 disc level from disc bulge/osteophyte complex. There is a small osteophyte/bone fragment within the right neural foramina narrowing the neural foramina and likely impinging the nerve root. This could explain patient's right-sided neck pain. CT angiogram of chest with/without:? No evidence of pulmonary embolism. Low lung volumes and subsegmental atelectasis at the lung bases. Enlarged heart. Probable hepatosplenomegaly. VTE: negative EKG:? Atrial sensed ventricular paced rhythm with prolonged AV conduction, no significant change from previous US venous ultrasound Doppler right lower extremity:? No DVT demonstrated in the right lower extremity. Initial laboratory results:? WBC 3.5, H/H 9.2/28.7, platelets 77, PT/INR 14.7/1.3, D-dimer 250, chloride 109, BUN/creatinine 28/1.47, random glucose 250, Ca 7.9, total bilirubin 1.3, AST/ALT 39/32, alk-phos 167, troponin high sensitivity 12.1, BNP 287, total protein 6.2, albumin 3.3, lipase 79. In the emergency department the above was performed , Neurosurgery was consulted who recommended MRI as well as dexamethasone.? Patient received 10 mg IVP dexamethasone, 3 mL of albuterol/ipratropium, a total of 75 mg IVP Benadryl, 2 mg iIV morphine sulfate, 4 mg IVP ondansetron, 500 mL NS, 5 mg p.o. oxycodone, 10 mg p.o. Flexeril and a lidocaine patch was applied. Hospital Course Admitted to telemetry where he remained hemodynamically stable. It was thought that his desaturation was related to pain medicine for neck pain. CT of spine demonstrated multiple degenerative changes an MRI was ordered. He was started on Decadron; over the next 24:48 hours he continued to improve. MRI was canceled secondary to the fact that he has a pacer and we could not confirm that he get past the MRI as well as there was no indication for surgical intervention as patient was improving on therapies. At this point in time he is medically acceptable to be discharged on oral Decadron taper as well as with some oxycodone for pain and follow-up with his PCP. If his pain totally resolved with Decadron will likely not need an MRI however this can be discussed with his PCP Time Spent with Patient Time attestation: Total time managing care of this patient today ____ minutes. Discharge coordination time: Greater than 30 minutes Quality: Safe Use of Opioids Does Pt have an Active Cancer Diagnosis on the Problem List?: No Quality: Stroke Does the patient have a stroke diagnosis?: No Physical Exam Vital Signs: Vital Signs: Last Vital Signs Temp 98.0 F 01/01/23 10:59 Pulse 64 01/01/23 10:59 Resp 20 01/01/23 10:59 BP 114/55 L 01/01/23 10:59 Pulse Ox 95 01/01/23 10:59 O2 Del Method Room Air 01/01/23 10:59 O2 Flow Rate 2 12/31/22 07:11 Oxygen Flow Rate 2 12/29/22 05:01 BMI result Body Mass Index 29.9 Const: Other: Awake alert uncomfortable appearing Resp: Other: Clear to auscultation bilaterally no rales rhonchi or wheezes Cardio: Other: No S4; positive S1-S2; no S3 murmurs rubs or gallops GI: Other: Soft nontender nondistended normoactive bowel sounds Extrem: Other: No edema bilaterally DS: Data Data Completed and Pending Completed studies during hospitalization [Text1]: Procedures Destruction of Bladder Neck, Via Natural or Artificial Opening Endoscopic (06/17/22) Extirpation of Matter from Bladder, Via Natural or Artificial Opening Endoscopic (06/17/22) Transfusion of Nonautologous Red Blood Cells into Peripheral Vein, Percutaneous Approach (06/17/22) Labs on day of discharge: Laboratory Results - last 24 hr 12/31/22 12/31/22 01/01/23 15:53 20:00 06:28 WBC 6.0 RBC 3.02 L Hgb 9.4 L Hct 29.1 L MCV 96.4 MCH 31.1 MCHC 32.3 RDW 14.0 Plt Count 107 L MPV 11.7 Immature Gran % (Auto) 2.2 H Neut % (Auto) 88.1 H Lymph % (Auto) 3.1 L [place] % (Auto) 6.6 Eos % (Auto) 0.0 Baso % (Auto) 0.0 Lymph # (Auto) 0.2 L [place] # (Auto) 0.4 Eos # (Auto) 0.0 Baso # (Auto) 0.0 Abs Immat Gran (auto) 0.13 H Absolute Neuts (auto) 5.3 Absolute Nucleated RBC 0.000 Nucleated RBC % (auto) 0.0 Sodium Potassium Chloride Carbon Dioxide Anion Gap BUN Creatinine Estim Creat Clear Calc Estimated GFR POC Glucose 375 H* 287 H Fasting Glucose Calcium Total Bilirubin AST ALT Alkaline Phosphatase Total Protein Albumin 01/01/23 01/01/23 01/01/23 06:28 07:15 11:37 WBC RBC Hgb Hct MCV MCH MCHC RDW Plt Count MPV Immature Gran % (Auto) Neut % (Auto) Lymph % (Auto) [place] % (Auto) Eos % (Auto) Baso % (Auto) Lymph # (Auto) [place] # (Auto) Eos # (Auto) Baso # (Auto) Abs Immat Gran (auto) Absolute Neuts (auto) Absolute Nucleated RBC Nucleated RBC % (auto) Sodium 141 Potassium 4.5 Chloride 109 H Carbon Dioxide 24 Anion Gap 13 BUN 59 H Creatinine 1.54 H Estim Creat Clear Calc 43.6 Estimated GFR 44 POC Glucose 235 H 358 H* Fasting Glucose 246 H Calcium 8.1 L Total Bilirubin 1.0 AST 31 ALT 32 Alkaline Phosphatase 138 H Total Protein 5.9 L Albumin 3.0 L Discharge Plan Discharge Anticipated Discharge Date/Time: 01/01/23 12:19 Patient Disposition: Home Health Service Discharge Diagnosis: Acute neck pain Referrals: Roberto Carlos Cisneros PA-C [Primary Care Provider] - 1 Week Discharge Medications: New oxycodone 5 mg tablet 5 mg PO Q6H PRN (Reason: pain (scale score 4-6)) Qty: 20 0RF Rx Instructions: Partial Fill upon patient request. dexamethasone 4 mg tablet See Rx Instructions .ROUTE .COMPLEX Qty: 18 0RF Rx Instructions: 4 mg orally ;1 tab p.o. t.i.d. x3 days, 1 pill p.o. b.i.d. x3 days, 1 pill daily x3 days Continued (DME) pen needle, diabetic [BD Gifty 2nd Gen Pen Needle] 32 gauge x 5/32 needle See Rx Instructions .MEDSUPPLY Qty: 150 5RF Rx Instructions: 4 times a day tamsulosin 0.4 mg capsule 0.4 mg PO DAILY 90 Days Qty: 90 1RF finasteride [Proscar] 5 mg tablet 5 mg PO DAILY 90 Days Qty: 90 1RF atorvastatin 80 mg tablet 80 mg PO BEDTIME 90 Days Qty: 90 2RF ezetimibe [Zetia] 10 mg tablet 10 mg PO BEDTIME 90 Days Qty: 90 2RF Farxiga 10 mg tablet 10 mg PO DAILY Qty: 90 0RF insulin aspart U-100 [Novolog FlexPen U-100 Insulin] 100 unit/mL (3 mL) insulin pen 2 - 25 unit subcut TIDAC Qty: 15 2RF (DME) lancets [FreeStyle Lancets] 28 gauge misc See Rx Instructions .Route Qty: 100 0RF Rx Instructions: As directed (DME) FreeStyle Marleni 14 Day [place] Misc See Rx Instructions .Route Qty: 1 0RF Rx Instructions: As directed (DME) FreeStyle Marleni 14 Day Sensor Kit See Rx Instructions .Route Qty: 2 2RF Rx Instructions: As directed (DME) blood-glucose meter [FreeStyle Lite Meter] Kit See Rx Instructions .Route Qty: 1 0RF Rx Instructions: As directed (DME) FreeStyle Test Strip See Rx Instructions .Route Qty: 100 0RF Rx Instructions: three times per day gabapentin 400 mg capsule 400 mg PO TID Qty: 90 5RF bethanechol chloride 25 mg tablet 25 mg PO BID 90 Days Qty: 180 1RF clopidogrel 75 mg tablet 1 tab PO DAILY cyanocobalamin (vitamin B-12) 500 mcg Tablet 1,000 mcg PO BEDTIME omeprazole 20 mg capsule,delayed release(DR/EC) 20 mg PO BID@0630,1630 insulin degludec [Tresiba FlexTouch U-200] 200 unit/mL (3 mL) insulin pen 64 unit subcut BEDTIME Trulicity 0.75 mg/0.5 mL pen injector 0.75 mg subcut TU@0900 Rx Instructions: FUTURE REFILLS FROM PCP. ferrous sulfate 325 mg (65 mg iron) tablet 325 mg PO BEDTIME (DME) blood pressure test kit-large Kit See Rx Instructions .Route Qty: 1 0RF Rx Instructions: As directed alprazolam 0.5 mg tablet 0.5 mg PO BID PRN (Reason: Anxiety) Qty: 30 2RF torsemide 20 mg tablet 20 mg PO DAILY metoprolol succinate 100 mg tablet extended release 24 hr 100 mg PO DAILY Discharge Orders: Discharge Order (Routine); Ordered 01/01/23 Ordered By: Rg Rojas Diet: Advance to usual diet Activity on Discharge: As tolerated Stand Alone Forms: Patient Portal Discharge page Care Plan Goals: Complete course of Decadron as ordered. Need to take with food Health Concerns: Use oxycodone as needed for pain Plan of Treatment: Follow-up with PCP Assessment: See discharge summary
--- NOTE | 2023-01-01 12:34 | W.MHC.F2F ---
Service Date Service Date: 01/01/23 Encounter Date of encounter: 01/01/23 Encounter: Acute hospitalization Reasons for Services Signs and symptoms assessed: Marked decrease in mobility with increased pain secondary to cervical radiculopathy Reason for correction: diabetic teaching and medication management Homebound: Leaving the home is medically contraindicated at this time without the asist of a device and/or another person due th the listed conditions above and below. Reason homebound: unsteady gait / fall risk and unable to drive Certification: Based on the above findings, I certify that this patient is confined to the home and needs intermittent correction care, physical therapy and/or speech therapy, or continues to need occupational therapy. The patient is under my care, and I have initiated the establishment of the plan of care. The patient will be followed by a physician who will periodically review the plan of care. Time Spent With Patient Time: Total time managing care of this patient today ____ minutes.
--- NOTE | 2023-01-01 13:09 | MHC.CM.PN ---
Patient has been medically cleared for dc to home today with new VNA. Patient has been accepted by [facility], who is aware of today's dc. Last IMM addressed on 12/30/2022.
--- NOTE | 2023-01-01 13:21 | MHC.CM.PN ---
CM met with Patient and his at bedside; both are agreeable to RN visits from [facility].
--- NOTE | 2023-01-01 13:26 | PC.NURSE ---
pt A&O, vitals within normal limits, with at bedside. discharge instructions given - verbalize understanding. pt to be brought down via wheelchair with hospital staff and . IV out, monitor off.
== END 2023-01-01 13:47 | disposition home or self-care (01) | DRG 551 ==
LOC: HO.ED 17:00 → HO.EDOVER 17:27 → HO.IMC 17:39
PROVIDERS: Internal Medicine; Physician Assistant; Admitting Provider Registered Nurse; Emergency Provider Emergency Medicine; PCP Physician Assistant; Visit Provider Hospitalist
DX: M50.33 Other cervical disc degeneration, cervicothoracic region (principal); J96.01 Acute respiratory failure with hypoxia; I50.32 Chronic diastolic (congestive) heart failure; J98.11 Atelectasis; M48.03 Spinal stenosis, cervicothoracic region; I35.0 Nonrheumatic aortic (valve) stenosis; E11.42 Type 2 diabetes mellitus with diabetic 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; I25.10 Atherosclerotic heart disease of native coronary artery without angina pectoris; G47.33 Obstructive sleep apnea (adult) (pediatric); N40.1 Benign prostatic hyperplasia with lower urinary tract symptoms; M47.812 Spondylosis without myelopathy or radiculopathy, cervical region; M25.78 Osteophyte, vertebrae; E78.5 Hyperlipidemia, unspecified; I11.0 Hypertensive heart disease with heart failure; K74.60 Unspecified cirrhosis of liver; R33.8 Other retention of urine; Z20.822 Contact with and (suspected) exposure to COVID-19; Z92.3 Personal history of irradiation; Z95.0 Presence of cardiac pacemaker; Z95.2 Presence of prosthetic heart valve; Z85.46 Personal history of malignant neoplasm of prostate; Z91.040 Latex allergy status; Z91.041 Radiographic dye allergy status; Z79.4 Long term (current) use of insulin; Z79.02 Long term (current) use of antithrombotics/antiplatelets; Z79.899 Other long term (current) drug therapy
CPT/HCPCS: 0241U; 36415; 71275; 72125; 80048; 80053; 81001; 82947; 83690; 83880; 84484; 85025; 85027; 85379; 85610; 93005; 93971; 94640; 94660; 99285; J1100; J1200; J1643; J1650; J2270; J2405; Q9967

== ENCOUNTER 2023-01-08 11:14 | Observation (INO) | payer MEDICARE, SELFPAY ==
--- NOTE | ~2023-01-08 | CT_ITS ---
EXAMINATION: CT HEAD WITHOUT CONTRAST CLINICAL INFORMATION: Confusion, agitation, gait abnormality COMPARISON: 11/17/2013 TECHNIQUE: Contiguous axial imaging was performed from the skull base to vertex without intravenous administration of contrast. This CT examination was performed using dose optimization techniques as appropriate, variously including the following: *Automated exposure control *Adjustment of mA and/or kV according to patient size (this includes techniques or standardized protocols for targeted exams where dose is matched to indication/reason for exam; i.e. extremities or head) *Use of iterative reconstruction technique DLP: 623 mGy-cm FINDINGS: There is no midline shift. There is no mass effect. There is no hemorrhage. The basilar cisterns appear patent. The posterior fossa is grossly within normal limits. Scattered areas of decreasing attenuation consistent with white matter ischemic change. Appears moderate. Ongoing from 2013. Calcification anterior may represent a calcified meningioma. Similar to previous. The sinuses are grossly clear. CT/CT head/brain wo IV con IMPRESSION: Negative acute noncontrast CT of the brain. There is evidence of atrophy and moderate white matter ischemic changes
[2023-01-08 11:21] VITALS: BP 152/76; PULSE 68; O2SAT 99
[2023-01-08 11:26] VITALS: BP 156/69; PULSE 68; RESP 16; TEMP 36.4; O2SAT 99; BMI 30.8
--- NOTE | 2023-01-08 11:28 | ECG_ITS ---
Test Reason : weakness Blood Pressure : / mmHG Vent. Rate : 066 BPM Atrial Rate : 066 BPM P-R Int : 214 ms QRS Dur : 136 ms QT Int : 472 ms P-R-T Axes : 072 -45 032 degrees QTc Int : 494 ms Sinus rhythm with 1st degree A-V block with occasional AV dual-paced complexes and Premature supraventricular complexes Right bundle branch block Left anterior fascicular block Bifascicular block Minimal voltage criteria for LVH, may be normal variant ( R in aVL ) Septal infarct , age undetermined Abnormal ECG When compared with ECG of 29-DEC-2022 07:08, Premature supraventricular complexes are now Present Vent. rate has decreased BY 6 BPM Referred By: Tonya Kimble Electronically Signed By:Sy Vickers
--- NOTE | 2023-01-08 11:29 | ED_ITS ---
HPI - Weakness General Chief complaint: Weakness Stated complaint: GENERAL WEAKNESS X'S 2 DAYS PER EMS Time Seen by Provider: 01/08/23 11:29 Source: patient, family and EMS Mode of arrival: EMS Limitations: no limitations History of Present Illness HPI Narrative: 77 yo male with history of complete heart block s/p PPM, aortic stenosis s/p TAVR 05/2019 at [facility], chronic back pain and neck pain, hx spinal stenosis, CAD, DM2 w/ 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, anemia, prostate cancer s/p radiation, ANUJA on CPAP, with recent admission to [facility] 12/29 - 01/01 for neck pain and transient hypoxia due to pain medications who presents to the ER for evaluation of confusion, agitation, and generalized weakness for the last 2 days. Per documentation while in the hospital, Neurosurgery was consulted at [facility] for CT cervical spine findings, Degenerative disc changes C5-C6 and C7-T1 disc levels with ventral and posterior spondylosis. There is AP canal stenosis C5-C6 disc level from disc bulge/osteophyte complex. There is a small osteophyte/bone fragment within the right neural foramina narrowing the neural foramina and likely impinging the nerve root. MRI was ordered but never completed due to his PPM. He was treated with IV decadron with improvement in his symptoms and discharged home on a decadron taper. Spoke with the patient's over the phone who reports the patient has had 2-3 days of worsening generalized weakness along, a shuffling gait with complaints of worsening back pain. He has been more agitated with his and a few times was incoherent. reports yesterday morning was the last day of the Decadron. He has been shakey and unsteady. He has been taking oxycodone for pain. He has been eating and drinking normally per his . MD Complaint: generalized weakness (along with agitation and confusion) Onset (ago): day(s) Duration: progressively worsening Location: generalized Migration: none Severity: moderate Relieving factors: none Exacerbating factors: evening Context: new medication Associated symptoms: denies other symptoms Related Data Home Medications Medication Instructions Recorded Confirmed ferrous sulfate 325 mg (65 mg 325 mg PO BEDTIME 10/17/20 01/08/23 iron) tablet clopidogrel 75 mg tablet 1 tab PO DAILY 06/18/22 01/08/23 metoprolol succinate 100 mg 100 mg PO DAILY 09/03/22 01/08/23 tablet,extended release 24 hr torsemide 20 mg tablet 20 mg PO DAILY 09/03/22 01/08/23 cyanocobalamin (vitamin B-12) 500 1,000 mcg PO BEDTIME 12/29/22 01/08/23 mcg tablet dulaglutide 0.75 mg/0.5 mL 0.75 mg subcut TU@0900 12/29/22 01/08/23 subcutaneous pen injector (Trulicity) insulin degludec 200 unit/mL (3 64 unit subcut BEDTIME 12/29/22 01/08/23 mL) subcutaneous pen (Tresiba FlexTouch U-200 insulin) omeprazole 20 mg capsule,delayed 20 mg PO BID@0630,1630 12/29/22 01/08/23 release Previous Rx's Medication Instructions Recorded blood pressure test kit-large #1 ea 11/21/21 pen needle, diabetic 32 gauge x #150 ea 05/08/22 (BD Gifty 2nd Gen Pen Needle) tamsulosin 0.4 mg capsule 0.4 mg PO DAILY 90 days #90 caps 07/07/22 finasteride 5 mg tablet (Proscar) 5 mg PO DAILY 90 days #90 tabs 07/16/22 atorvastatin 80 mg tablet 80 mg PO BEDTIME 90 days #90 tabs 08/11/22 ezetimibe 10 mg tablet (Zetia) 10 mg PO BEDTIME 90 days #90 tabs 08/13/22 alprazolam 0.5 mg tablet 0.5 mg PO BID PRN Anxiety #30 tabs 09/03/22 dapagliflozin 10 mg tablet 10 mg PO DAILY #90 tabs 10/01/22 (Farxiga) insulin aspart U-100 100 unit/mL 2 - 25 unit (0.02 - 0.25 mL) 10/01/22 (3 mL) subcutaneous pen (Novolog subcut TIDAC #15 mL FlexPen U-100 Insulin aspart) blood-glucose meter (FreeStyle #1 ea 10/03/22 Lite Meter kit) flash glucose scanning reader #1 ea 10/03/22 (FreeStyle Marleni 14 Day Fate) flash glucose sensor (FreeStyle #2 ea 10/03/22 Marleni 14 Day Sensor kit) lancets 28 gauge (FreeStyle #100 ea 10/03/22 Lancets) blood sugar diagnostic (FreeStyle #100 ea 11/12/22 Test strips) gabapentin 400 mg capsule 400 mg PO TID #90 caps 12/22/22 bethanechol chloride 25 mg tablet 25 mg PO BID 90 days #180 tabs 12/30/22 dexamethasone 4 mg tablet See Rx Instructions .Route 01/01/23 .COMPLEX #18 tabs oxycodone 5 mg tablet 5 mg PO Q6H PRN pain (scale score 01/01/23 4-6) #20 tabs Allergies Allergy/AdvReac Type Severity Reaction Status Date / Time KARL Inhibitors Allergy Severe Angioedema Verified 12/30/22 10:32 dextran 40 [DEXTRAN 40] Allergy Intermediate tachycardia Verified 10/20/22 14:56 latex [LATEX] Allergy Mild BLISTERS Verified 10/20/22 14:56 Iodinated Contrast Media Allergy Unknown UNKNOWN Verified 10/20/22 14:56 [CONTRAST,IV] Review of Systems Review of Systems: Yes all other systems are reviewed and are negative [facility] Past Medical History Medical History Acute lower gastrointestinal bleeding Aortic stenosis CAD (coronary artery disease) Chronic fatigue COVID-19 vaccine series completed Diabetes type 2, uncontrolled Diabetic nephropathy associated with type 2 diabetes mellitus Diabetic 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 associated with type 2 diabetes mellitus DMII (diabetes mellitus, type 2) KOEHLER (dyspnea on exertion) Dyslipidemia Esophageal varices without bleeding GERD (gastroesophageal reflux disease) History of prostate cancer HTN (hypertension) Hypertension IBS (irritable colon syndrome) Iron deficiency anemia half-way (current) use of insulin On beta kayy at home ANUJA on CPAP Polyneuropathy Prostate cancer Spinal stenosis Varices of esophagus determined by endoscopy Surgical History H/O cataract extraction History of colonoscopy History of heart artery stent History of surgery History of surgery History of transurethral resection of prostate Hx of colonoscopy Hx of endoscopy Hx of esophagogastroduodenoscopy Family History Family History Father CVD (cardiovascular disease) Past heart attack Mother CVD (cardiovascular disease) Brain cancer Heart problem Daughter Breast cancer Sister Breast cancer Son Alive and well Family/Other Myocardial infarction Liver cancer Social History Social History Household Members: Spouse Housing: House Are you a primary tire care manager to a significant other at home: No Do you presently have visiting nurse or other home services: No Alcohol intake: never Patient Tobacco Use Status: Never used Tobacco Smoked in Last 30 Days: No e-Cigarette/Vaping Use: Never Used Second Hand Smoke Exposure: No Use of substances other than those prescribed or required for medical reasons: No Advance Directives: No service: Yes Current occupational status: retired Cognitive needs: No Hearing needs: No Vision needs: Yes Physical Exam Vital Signs: Vital Signs: Last Vital Signs Temp 98.4 F 01/08/23 14:03 Pulse 61 01/08/23 14:03 Resp 18 01/08/23 14:03 BP 162/64 H 01/08/23 14:03 Pulse Ox 98 01/08/23 14:03 O2 Del Method Room Air 01/08/23 14:03 BMI result Body Mass Index 30.8 Appearance: Alert. Oriented X3. No acute distress. Head: normocephalic, atraumatic. Eyes: Pupils equal, round and reactive to light. ENT: Pharynx normal. No tonsillar swelling or exudate. Neck: Normal inspection. Neck supple. CVS: Normal heart rate and rhythm. Pulses normal. + systolic murmur Respiratory: No respiratory distress. Breath sounds normal. Abdomen: Soft and nontender. +BS x4 Skin: Skin warm and dry. Normal skin color. Normal skin turgor. No rashes. Extremities: No lower extremity edema. No joint swelling. Neuro/psych: Oriented X 3. Bilateral LE weakness, equal and symmetrical UE strength. CN II-XII intact. Slightly slurred speech, repetative. confused at times. gait not tested due to weakness Medications Administered Discontinued Medications Generic Name Dose Route Start Last Admin Trade Name Freq PRN Reason Stop Dose Admin Acetaminophen 975 mg 01/08/23 13:15 01/08/23 13:44 Acetaminophen 325 Mg Tablet PO 01/08/23 13:16 975 mg ONCE ONE Administration Sodium Chloride 1,000 mls @ 999 mls/hr 01/08/23 13:00 01/08/23 13:37 Ns IVCONT 01/08/23 14:00 999 mls/hr .Q1H1M PANFILO Administration Oxycodone HCl 5 mg 01/08/23 13:15 01/08/23 13:44 Oxycodone Hcl Immed Release 5 Mg Tablet PO 01/08/23 13:16 5 mg ONCE ONE Administration Medical Decision Making Medical Decision Making [facility] Narrative: 77 yo male with history of complete heart block s/p PPM, aortic stenosis s/p TAVR 05/2019 at [facility], chronic back pain and neck pain, hx spinal stenosis, CAD, DM2 w/ 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, anemia, prostate cancer s/p radiation, ANUJA on CPAP, with recent admission to [facility] 12/29 - 01/01 for neck pain and transient hypoxia due to pain medications who presents to the ER for evaluation of confusion, agitation, and generalized weakness for the last 2 days. Concern his symptoms are related to steroids. he has no evidence of infection. most likely a wax/waning delirium. labs show slight leukocytosis, likely due to steroids. he has chronic elevation of LFTs, no RUQ pain or tenderness on exam. UA negative for infection. Patient is not safe for discharge home. Will plan to admit for acute delirium induced by steroids. Differential Diagnosis Differential Diagnoses: The differential diagnosis associated with the presentation includes acute delirium due to steroids, acute infection, UTI, dementia, less likely CVA Admission/Observation Consideration of admission/observation: Escalation of care including a dmission/observation considered Consult Healthcare Provider Management of the patient was discussed with: Hospitalist Lab Data [facility] Lab Attestation statement: I reviewed the patient's lab results. mild leukocytosis likely due to steroids 01/08/23 12:14 01/08/23 12:14 Labs: Lab Results 01/08/23 01/08/23 01/08/23 Range/Units 12:14 12:14 12:14 WBC 12.6 H (4.8-10.8) X10*3/uL RBC 3.74 L D (4.60-5.80) X10*6/uL Hgb 11.5 L D (14.0-18.0) g/dl Hct 35.5 L D (42.0-52.0) % MCV 94.9 (80.0-98.0) fL MCH 30.7 (27.0-33.0) pg MCHC 32.4 (31.0-36.0) g/dl RDW 14.6 (11.0-16.0) % Plt Count 54 L D (160-400) X10*3/uL MPV 11.6 (9.4-12.4) fL Immature Gran % (Auto) 1.5 H (0.0-0.4) % Neut % (Auto) 84.9 H (45-73) % Lymph % (Auto) 3.4 L (20-40) % Laurel % (Auto) 9.8 (2-11) % Eos % (Auto) 0.2 (0-4) % Baso % (Auto) 0.2 (0-2) % Lymph # (Auto) 0.4 L (1.2-4.9) X10*3/uL La[place] # (Auto) 1.2 (0.1-1.2) X10*3/uL Eos # (Auto) 0.0 (0.0-0.4) X10*3/uL Baso # (Auto) 0.0 (0.0-0.2) X10*3/uL Abs Immat Gran (auto) 0.19 H (0.00-0.03) X10*3/uL Absolute Neuts (auto) 10.7 H (2.0-8.3) x10*3/uL Absolute Nucleated RBC 0.000 (0.0-0.012) X10*3/uL Nucleated RBC % (auto) 0.0 (0.0-0.2) /100WBC Sodium 142 (135-145) mmol/L Potassium 4.2 (3.3-5.1) mmol/L Chloride 114 H (96-108) mmol/L Carbon Dioxide 22 (22-29) mmol/L Anion Gap 10 L (12-20) BUN 53 H (9-16) mg/dL Creatinine 1.27 (0.5-1.4) mg/dL Estim Creat Clear Calc 53.5 Estimated GFR 55 Random Glucose 156 H (60-115) mg/dL Calcium 8.2 L (8.4-10.2) mg/dL Magnesium 2.6 (1.6-2.6) mg/dL Total Bilirubin 1.8 H (0.0-1.0) mg/dL Direct Bilirubin 0.7 H (0.0-0.5) mg/dL AST 43 H (5-37) U/L ALT 102 H (0-40) U/L Alkaline Phosphatase 161 H (39-117) U/L Troponin I High Sens 9.1 (<3.5-35.0) ng/L Total Protein 6.0 L (6.5-8.0) g/dL Albumin 3.0 L (3.5-5.0) g/dL TSH (0.32-4.0) uIU/mL Urine Color Urine Appearance Urine pH (5.0-9.0) Ur Specific Al[place] (1.005-1.025) Urine Protein (Neg-Trace) mg/dL Urine Glucose (UA) (Negative) mg/dL Urine Ketones (Negative) mg/dL Urine Blood (Negative) Urine Nitrite (Negative) Ur Leukocyte Esterase (Negative) Urine RBC (0-2) /HPF Urine WBC (0-5) /HPF Ur Squamous Epith Cells (0-2) /HPF Urine Bacteria (None Seen) Hyaline Casts (0-2) /LPF Urine Opiates Screen (Not Detect) Urine Fentanyl Screen (Not Detect) Ur Barbiturates Screen (Not Detect) Ur Phencyclidine Scrn (Not Detect) Ur Amphetamines Screen (Not Detect) U Benzodiazepines Scrn (Not Detect) Urine Cocaine Screen (Not Detect) U Marijuana (THC) Screen (Not Detect) Ethyl Alcohol mg/dL 01/08/23 01/08/23 01/08/23 Range/Units 12:14 15:50 15:50 WBC (4.8-10.8) X10*3/uL RBC (4.60-5.80) X10*6/uL Hgb (14.0-18.0) g/dl Hct (42.0-52.0) % MCV (80.0-98.0) fL MCH (27.0-33.0) pg MCHC (31.0-36.0) g/dl RDW (11.0-16.0) % Plt Count (160-400) X10*3/uL MPV (9.4-12.4) fL Immature Gran % (Auto) (0.0-0.4) % Neut % (Auto) (45-73) % Lymph % (Auto) (20-40) % Laurel % (Auto) (2-11) % Eos % (Auto) (0-4) % Baso % (Auto) (0-2) % Lymph # (Auto) (1.2-4.9) X10*3/uL Laurel # (Auto) (0.1-1.2) X10*3/uL Eos # (Auto) (0.0-0.4) X10*3/uL Baso # (Auto) (0.0-0.2) X10*3/uL Abs Immat Gran (auto) (0.00-0.03) X10*3/uL Absolute Neuts (auto) (2.0-8.3) x10*3/uL Absolute Nucleated RBC (0.0-0.012) X10*3/uL Nucleated RBC % (auto) (0.0-0.2) /100WBC Sodium (135-145) mmol/L Potassium (3.3-5.1) mmol/L Chloride (96-108) mmol/L Carbon Dioxide (22-29) mmol/L Anion Gap (12-20) BUN (9-16) mg/dL Creatinine (0.5-1.4) mg/dL Estim Creat Clear Calc Estimated GFR Random Glucose (60-115) mg/dL Calcium (8.4-10.2) mg/dL Magnesium (1.6-2.6) mg/dL Total Bilirubin (0.0-1.0) mg/dL Direct Bilirubin (0.0-0.5) mg/dL AST (5-37) U/L ALT (0-40) U/L Alkaline Phosphatase (39-117) U/L Troponin I High Sens (<3.5-35.0) ng/L Total Protein (6.5-8.0) g/dL Albumin (3.5-5.0) g/dL TSH 1.27 (0.32-4.0) uIU/mL Urine Color Yellow Urine Appearance Clear Urine pH 5.5 (5.0-9.0) Ur Specific [place] 1.025 (1.005-1.025) Urine Protein 30 (1+) H (Neg-Trace) mg/dL Urine Glucose (UA) >=1000 H (Negative) mg/dL Urine Ketones Negative (Negative) mg/dL Urine Blood Negative (Negative) Urine Nitrite Negative (Negative) Ur Leukocyte Esterase Negative (Negative) Urine RBC 3-5 H (0-2) /HPF Urine WBC 0-5 (0-5) /HPF Ur Squamous Epith Cells 0-2 (0-2) /HPF Urine Bacteria 1+ (None Seen) Hyaline Casts 0-2 (0-2) /LPF Urine Opiates Screen Not Detected (Not Detect) Urine Fentanyl Screen Not Detected (Not Detect) Ur Barbiturates Screen Not Detected (Not Detect) Ur Phencyclidine Scrn Not Detected (Not Detect) Ur Amphetamines Screen Not Detected (Not Detect) U Benzodiazepines Scrn Not Detected (Not Detect) Urine Cocaine Screen Not Detected (Not Detect) U Marijuana (THC) Screen Not Detected (Not Detect) Ethyl Alcohol < 10 mg/dL Independent Interpretation I performed an independent interpretation of an: EKG and CT Scan Interpretation: CT head without acute stroke or bleed, agree w/ radiology read EKG with sinus rhythm, 1st degree AV block, PA interval 214 ms, bifasicular block, no significant change from 2 weeks ago Radiology Impression Discussion of test interpretation with radiology: I have reviewed the radiologist's reading. Radiologist Impression: CT/CT head/brain wo IV con IMPRESSION: Negative acute noncontrast CT of the brain. There is evidence of atrophy and moderate white matter ischemic changes Independent Historian Clinical information obtained from an independent historian. History obtained from or confirmed by: Spouse and EMS External Record Review External record reviewed: Inpatient record, Outpatient record, Prior outpatient labs and Prior outpatient radiology Prescription Management I considered prescription management with: Pain Medication and Antibiotic Chronic Conditions Patient?s care impacted by: Other (chronic neck and back pain with spinal stenosis) Critical Care Time Critical Care Time Critical Care Time: Yes Total Critical Care Time: 35 Attestation: I have personally provided critical care time exclusive of time spent on separately billable procedures. Time includes review of lab data, radiology results, discussion with consultants, and monitoring for potential dec ompensation. Intervention performed as documented. Discharge Plan Discharge Clinical Impression: Acute delirium, Weakness Patient Disposition: Admitted As Inpatient
--- NOTE | 2023-01-08 11:52 | PC.NURSE ---
pt arrived to ED via EMS, a&ox4, coming from home, reports increased confusion, generalized weakness/malaise since getting discharged from [facility] on prednisone, vss, ED provider at bedside, pt pending CT scan/labs.
[2023-01-08 12:21] LABS: MANUAL DIFF FLAG NO
[2023-01-08 12:23] LABS: Basophils Percent Auto 0.2 % (0-2); Eosinophils Percent Auto 0.2 % (0-4); Hematocrit 35.5 % (42.0-52.0); Hemoglobin 11.5 g/dl (14.0-18.0); Imm Gran Abs Auto 0.19 X10*3/uL (0.00-0.03); Imm Gran Pct Auto 1.5 % (0.0-0.4); Lymphocytes Absolute Auto 0.4 X10*3/uL (1.2-4.9); Lymphocytes Percent Auto 3.4 % (20-40); Mean Corpuscular HGB Conc 32.4 g/dl (31.0-36.0); Mean Corpuscular Hemoglobin 30.7 pg (27.0-33.0); Mean Corpuscular Volume 94.9 fL (80.0-98.0); Monocytes Absolute Auto 1.2 X10*3/uL (0.1-1.2); Monocytes Percent Auto 9.8 % (2-11); Neutrophils Absolute Auto 10.7 x10*3/uL (2.0-8.3); Neutrophils Percent Auto 84.9 % (45-73); Red Blood Count 3.74 X10*6/uL (4.60-5.80); Red Cell Distribution Width 14.6 % (11.0-16.0); White Blood Count 12.6 X10*3/uL (4.8-10.8)
[2023-01-08 12:41] LABS: Anion Gap 10 (12-20)
[2023-01-08 12:44] LABS: Ethanol < 10 mg/dL
[2023-01-08 12:45] LABS: Alanine Aminotransferase 102 U/L (0-40); Alkaline Phosphatase 161 U/L (39-117); Aspartate Amino Transferase 43 U/L (5-37); Bilirubin Direct 0.7 mg/dL (0.0-0.5); Bilirubin Total 1.8 mg/dL (0.0-1.0); Blood Urea Nitrogen 53 mg/dL (9-16); Calcium 8.2 mg/dL (8.4-10.2); Carbon Dioxide 22 mmol/L (22-29); Chloride 114 mmol/L (96-108); Creatinine Clr Calc Pharmacy 53.5; Estimated Glomerular Filt Rate 55; Glucose Random 156 mg/dL (60-115); Magnesium 2.6 mg/dL (1.6-2.6); Potassium 4.2 mmol/L (3.3-5.1); Sodium 142 mmol/L (135-145)
[2023-01-08 12:47] LABS: Mean Platelet Volume 11.6 fL (9.4-12.4); Platelet Count 54 X10*3/uL (160-400)
[2023-01-08 12:57] LABS: TSH reflex Free T4 1.27 uIU/mL (0.32-4.0)
[2023-01-08 13:19] LABS: Troponin-I High Sensitivity 9.1 ng/L (<3.5-35.0)
[2023-01-08] MEDS: 0.9 % Sodium Chloride 1,000 ML 999 ML IVCONT (13:37)
[2023-01-08] MEDS: Acetaminophen 325 MG TABLET 975 MG PO (13:44)
[2023-01-08] MEDS: oxyCODONE HCl Immed Release 5 MG TABLET PO ×2 (13:44→22:51)
--- NOTE | 2023-01-08 13:47 | PC.NURSE ---
20G IV placed left AC, 1L NS running, medicated per NOV for 8/10 back/neck pain.
[2023-01-08 14:03] VITALS: BP 162/64; PULSE 61; RESP 18; TEMP 36.9; O2SAT 98
[2023-01-08 16:01] LABS: Appearance Urine Clear; Color Urine Yellow; Glucose Urine UA >=1000 mg/dL (Negative); Leukocyte Esterase Urine Negative (Negative); Nitrite Urine Negative (Negative); PH 5.5 (5.0-9.0); Specific Gravity - Urine 1.025 (1.005-1.025); UMIC TRIGGER UACC YES; Urine Blood Negative (Negative); Urine Ketones Negative (Negative); Urine Protein 30 (1+) mg/dL (Neg-Trace)
--- NOTE | 2023-01-08 16:01 | PHA.MEDREC ---
Pharmacy Consult ? Medication Reconciliation Pharmacy has completed the medication reconciliation.
[2023-01-08 16:06] LABS: Bacteria Urine 1+ (None Seen); Hyaline Casts Urine 0-2 /LPF (0-2); Squamous Epithelial Cell Urine 0-2 /HPF (0-2); WBC Urine 0-5 /HPF (0-5)
[2023-01-08 16:08] LABS: Amphetamine Screen Urine Not Detected (Not Detect); Barbiturates, Urine Not Detected (Not Detect); Benzodiazepines Screen Urine Not Detected (Not Detect); Cannabinoid Screen Urine Not Detected (Not Detect); Cocaine Screen Urine Not Detected (Not Detect); Fentanyl, urine Not Detected (Not Detect); Opiate Screen Urine Not Detected (Not Detect); Phencyclidine Screen Urine Not Detected (Not Detect)
--- NOTE | 2023-01-08 16:24 | PM.IMHP ---
History of Present Illness Date of Service: 01/08/23 Chief Complaint: weakness This is a 77-year-old male with past medical history of severe aortic stenosis status post TAVR on 06/02, CAD, history of prostate cancer, complete heart block status post pacemaker on 06/02, type 2 diabetes, HLD, history of esophageal varices without bleeding, GERD, HTN, IBS. Recent admission to [place] from 12/29 to 01/01 and treated Neck pain and Hypoxia and at that time MRI could not be done because of paacemker. CT scan at that time showed Degenerative disc changes C5-C6 and C7-T1 disc levels with ventral and posterior spondylosis. There is AP canal stenosis C5-C6 disc level from disc bulge/osteophyte complex. There is a small osteophyte/bone fragment within the right neural foramina narrowing the neural foramina and likely impinging the nerve root. The case at that time was discussed with [facility] Neurosurgery team with no indication for intervention. He is essentially coming back becuase of confusion, agitation, unsteadiness of his gait which he and attributes to prednisone. He sounded pretty coherent but still complaint of pain in the neck, shoulder pain Review of Systems Review of Systems: Gen: no fever Resp: no sob, no cough CV: no chest, no KOEHLER, no leg edema GI: No n/v, no abd pain Neuro: No confusion MSK: neck pain Yes all other systems are reviewed and are negative [facility] Medical History Acute lower gastrointestinal bleeding Aortic stenosis CAD (coronary artery disease) Chronic fatigue COVID-19 vaccine series completed Diabetes type 2, uncontrolled Diabetic nephropathy associated with type 2 diabetes mellitus Diabetic 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 associated with type 2 diabetes mellitus DMII (diabetes mellitus, type 2) KOEHLER (dyspnea on exertion) Dyslipidemia Esophageal varices without bleeding GERD (gastroesophageal reflux disease) History of prostate cancer HTN (hypertension) Hypertension IBS (irritable colon syndrome) Iron deficiency anemia correction (current) use of insulin On beta kayy at home ANUJA on CPAP Polyneuropathy Prostate cancer Spinal stenosis Varices of esophagus determined by endoscopy Family History Father CVD (cardiovascular disease) Past heart attack Mother CVD (cardiovascular disease) Brain cancer Heart problem Daughter Breast cancer Sister Breast cancer Son Alive and well Family/Other Myocardial infarction Liver cancer Surgical History H/O cataract extraction History of colonoscopy History of heart artery stent History of surgery History of surgery History of transurethral resection of prostate Hx of colonoscopy Hx of endoscopy Hx of esophagogastroduodenoscopy Social History Household Members: Spouse Housing: House Are you a primary home health care coordinator to a significant other at home: No Do you presently have visiting nurse or other home services: No Alcohol intake: never Patient Tobacco Use Status: Never used Tobacco Smoked in Last 30 Days: No e-Cigarette/Vaping Use: Never Used Second Hand Smoke Exposure: No Use of substances other than those prescribed or required for medical reasons: No Advance Directives: No Nutrition Risks: No Nutritional Risk service: Yes Current occupational status: retired Cognitive needs: No Hearing needs: No Vision needs: Yes Meds Allergies Allergy/AdvReac Type Severity Reaction Status Date / Time KARL Inhibitors Allergy Severe Angioedema Verified 12/30/22 10:32 dextran 40 [DEXTRAN 40] Allergy Intermediate tachycardia Verified 10/20/22 14:56 latex [LATEX] Allergy Mild BLISTERS Verified 10/20/22 14:56 Iodinated Contrast Media Allergy Unknown UNKNOWN Verified 10/20/22 14:56 [CONTRAST,IV] Active Medications: Current Medications Pharmacy Consult (Consult Rx Perform Med Rec) 1 each MISCELLANE ONCE PRN PRN Reason: Consult order Home Medications Medication Instructions Recorded Confirmed Last Taken Type ferrous sulfate 325 mg (65 mg 325 mg PO BEDTIME 10/17/20 01/08/23 12/28/22 History iron) tablet clopidogrel 75 mg tablet 1 tab PO DAILY 06/18/22 01/08/23 12/29/22 History metoprolol succinate 100 mg 100 mg PO DAILY 09/03/22 01/08/23 12/29/22 History tablet,extended release 24 hr torsemide 20 mg tablet 20 mg PO DAILY 09/03/22 01/08/23 12/29/22 History cyanocobalamin (vitamin B-12) 500 1,000 mcg PO BEDTIME 12/29/22 01/08/23 12/28/22 History mcg tablet dulaglutide 0.75 mg/0.5 mL 0.75 mg subcut TU@0900 12/29/22 01/08/23 12/23/22 History subcutaneous pen injector (Trulicity) insulin degludec 200 unit/mL (3 64 unit subcut BEDTIME 12/29/22 01/08/23 12/28/22 History mL) subcutaneous pen (Tresiba FlexTouch U-200 insulin) omeprazole 20 mg capsule,delayed 20 mg PO BID@0630,1630 12/29/22 01/08/23 12/29/22 History release Physical Exam Vital Signs and Narrative: Vital Signs: Last Vital Signs Temp 98.4 F 01/08/23 14:03 Pulse 61 01/08/23 14:03 Resp 18 01/08/23 14:03 BP 162/64 H 01/08/23 14:03 Pulse Ox 98 01/08/23 14:03 O2 Del Method Room Air 01/08/23 14:03 BMI result Body Mass Index 30.8 Results Labs 01/08/23 12:14 01/08/23 12:14 Labs: Laboratory Results - last 24 hr 01/08/23 01/08/23 01/08/23 12:14 12:14 12:14 MCV 94.9 MCH 30.7 MCHC 32.4 RDW 14.6 Plt Count 54 L D MPV 11.6 Immature Gran % (Auto) 1.5 H Neut % (Auto) 84.9 H Lymph % (Auto) 3.4 L [place] % (Auto) 9.8 Eos % (Auto) 0.2 Baso % (Auto) 0.2 Lymph # (Auto) 0.4 L [place] # (Auto) 1.2 Eos # (Auto) 0.0 Baso # (Auto) 0.0 Abs Immat Gran (auto) 0.19 H Absolute Neuts (auto) 10.7 H Absolute Nucleated RBC 0.000 Nucleated RBC % (auto) 0.0 Anion Gap 10 L Estim Creat Clear Calc 53.5 Estimated GFR 55 Random Glucose 156 H Calcium 8.2 L Magnesium 2.6 Total Bilirubin 1.8 H Direct Bilirubin 0.7 H AST 43 H ALT 102 H Alkaline Phosphatase 161 H Troponin I High Sens 9.1 Total Protein 6.0 L Albumin 3.0 L TSH Urine Color Urine Appearance Urine pH Ur Specific [place] Urine Protein Urine Glucose (UA) Urine Ketones Urine Blood Urine Nitrite Ur Leukocyte Esterase Urine RBC Urine WBC Ur Squamous Epith Cells Urine Bacteria Hyaline Casts Urine Opiates Screen Urine Fentanyl Screen Ur Barbiturates Screen Ur Phencyclidine Scrn Ur Amphetamines Screen U Benzodiazepines Scrn Urine Cocaine Screen U Marijuana (THC) Screen Ethyl Alcohol 01/08/23 01/08/23 01/08/23 12:14 15:50 15:50 MCV MCH MCHC RDW Plt Count MPV Immature Gran % (Auto) Neut % (Auto) Lymph % (Auto) [place] % (Auto) Eos % (Auto) Baso % (Auto) Lymph # (Auto) [place] # (Auto) Eos # (Auto) Baso # (Auto) Abs Immat Gran (auto) Absolute Neuts (auto) Absolute Nucleated RBC Nucleated RBC % (auto) Anion Gap Estim Creat Clear Calc Estimated GFR Random Glucose Calcium Magnesium Total Bilirubin Direct Bilirubin AST ALT Alkaline Phosphatase Troponin I High Sens Total Protein Albumin TSH 1.27 Urine Color Yellow Urine Appearance Clear Urine pH 5.5 Ur Specific [place] 1.025 Urine Protein 30 (1+) H Urine Glucose (UA) >=1000 H Urine Ketones Negative Urine Blood Negative Urine Nitrite Negative Ur Leukocyte Esterase Negative Urine RBC 3-5 H Urine WBC 0-5 Ur Squamous Epith Cells 0-2 Urine Bacteria 1+ Hyaline Casts 0-2 Urine Opiates Screen Not Detected Urine Fentanyl Screen Not Detected Ur Barbiturates Screen Not Detected Ur Phencyclidine Scrn Not Detected Ur Amphetamines Screen Not Detected U Benzodiazepines Scrn Not Detected Urine Cocaine Screen Not Detected U Marijuana (THC) Screen Not Detected Ethyl Alcohol < 10 Imaging Radiologist's Impressions: Impressions Head CT 01/08/23 12:59 IMPRESSION: Negative acute noncontrast CT of the brain. There is evidence of atrophy and moderate white matter ischemic changes Assessment and Plan (1) Weakness: Status: Acute Plan 77-year-old male with a past medical history of hypertension, hyperlipidemia, irritable bowel syndrome, ANUJA maintained on CPAP, aortic stenosis, coronary artery disease will be admitted due to acute neck pain with radicular pain to left shoulder Acute neck pain with radicular right shoulder pain--recent CT showed degenerative changes. Probably need MRI for better investiagion. Treat with pain med, consider neuro consult as well. Chronic unspecified heart failure--has some leg edema but not complaining of of sob, continue home dose of diuretics History of adenocarcinoma of prostate treated with laser therapy/radiation in 2014 Urinary retention BPH -Continue finasteride/tamsulosin as well as bethanechol 25 mg b.i.d..? Cirrhosis of liver--stable Anemia, chronic, h/h stable Hypertension--continue home meds Hyperlipidemia-Statin Insulin-dependent diabetes mellitus -Insulin sliding scale with nutrition.? Hypoglycemia protocol in place.? Continue Lantus.? Gastroesophageal reflux disease -Oral PPI continued.? Patient is a full code DVT prophylaxis-intermittent sequential boots.? Hold chemical DVT prophylaxis due to thrombocytopenia. HCP/person to contact is patient's Myesha Lopes, Son Blaise Lopes can also be contacted, Time Spent With Patient Time: Total time managing care of this patient today ____ minutes. Quality Stroke Does the patient have a stroke diagnosis?: No VTE Prior VTE?: No VTE Risk Level:: Medical - moderate - high VTE Device Contraindication: Treatment Not Indicated VTE Drug Contraindication: N/A - Med Ordered
--- NOTE | 2023-01-08 17:55 | PC.NURSE ---
pt a&ox4, repetitive speech, reporting 2/10 back/neck pain, pt resting quietly watching golf. pt pending bed assignment, plan to transfer to ED overflow. RN-RN report given to overflow, transport notified. no new orders at this time.
--- NOTE | 2023-01-08 18:35 | PC.NURSE ---
assumed care of patient at this time. able to stand pivot from ED stretcher into hospital bed. red non slip socks in place for safety. will CTM
[2023-01-08 19:43] VITALS: BP 158/64; PULSE 64; RESP 16; TEMP 36.9; O2SAT 98
[2023-01-08] MEDS: Atorvastatin Calcium 80 MG TABLET PO (19:47)
[2023-01-08] MEDS: Cyanocobalamin (Vitamin B-12) 1,000 MCG TABLET 1000 MCG PO (19:47)
[2023-01-08] MEDS: Ferrous Sulfate 324 MG TABLET.DR PO (19:47)
[2023-01-08] MEDS: Gabapentin 400 MG CAPSULE PO (19:47)
--- NOTE | 2023-01-08 20:00 | MHC.EDTECH ---
THIS PCT ASSUMED CARE OF PT AT 191 ,1999 ROUNDING DONE ,VITALS SIGN TAKEN ,BLOOD SUGAR TAKEN ,PT IS ALERT AND ORIENTED ,URINAL GIVEN ,TISSUES AND FRESH WATER ,PT RESTING QUIETLY IN BED .
[2023-01-08 20:33] LABS: Glucose, Whole Blood 133 mg/dL (60-115)
[2023-01-08] MEDS: Insulin Glargine,Hum.rec.anlog 100 UNIT/ML 10 ML VIAL 45 UNIT SUBCUT (21:04)
[2023-01-08] MEDS: Bethanechol Chloride 25 MG TABLET PO (21:05)
--- NOTE | 2023-01-08 21:05 | MHC.EDTECH ---
THIS PCT ASKED PT IF HE HAD DINNER , PT SAID NO I GAVE PT TURKEY SANDWICH ,PUDDING AND DIET LAURENT ANGIE ,PT WAS INCONTINENT OF URINE ,BED BATH GIVEN ,LINEN CHANGE ,PT REQUESTED A [place] CATHETHER ,MATI PRUITT SAID IT WAS OK .
--- NOTE | 2023-01-08 21:42 | PC.NURSE ---
pt resting comfortably on bed at this time, reports 2/10 neck pain. Pt is alert and oriented x4, skin pwd, respirations equal and unlabored, speaking in clear full comprehensible sentences. Pt verbalizes to this RN that he attempted to use a urinal but accidentally missed and urinated on the bed. This RN confirmed with patient that a [place] condom catheter was appropriate, [place] PCT placed in on the patient, pt tolerated well. Pt took all night medications with no issue and ate dinner. Pt is now getting ready for sleep. continue plan of care for admission and bed assignment
--- NOTE | 2023-01-08 22:51 | MHC.EDTECH ---
PT PULLED OUT THE [place] CATH ,AND SAID IT CAME OFF ,WAS INCONTINENT ,CARE GIVEN ,BEDDING CHANGE ,PT WANTED A [place] CATHETER PLACED ,RN SAID IT WAS OK,[place] PLACED .
[2023-01-09] VITALS (7 sets, daily range): BP systolic 137–180; BP diastolic 61–77; PULSE 78–89; RESP 16–24; TEMP 36.8–37.4; O2SAT 93–96; BMI 31.4; BMI 31.0
--- NOTE | 2023-01-09 03:01 | PC.NURSE ---
patient continues to sleep, respirations equal and unlabored, skin pwd, no apparent distress at this time
[2023-01-09] MEDS: Omeprazole 20 MG CAPSULE.DR PO ×2 (06:00→15:33)
--- NOTE | 2023-01-09 06:40 | PC.NURSE ---
pt continues to sleep, respirations even and unlabored, skin pwd, condom catheter draining appropriately. Continue plan of care to admit to [facility]
[2023-01-09 07:44] LABS: Glucose, Whole Blood 128 mg/dL (60-115)
[2023-01-09] MEDS: Empagliflozin 10 MG TABLET PO (08:20)
[2023-01-09] MEDS: Torsemide 20 MG TABLET PO (08:20)
[2023-01-09] MEDS: Gabapentin 400 MG CAPSULE PO ×3 (08:20→21:19)
[2023-01-09] MEDS: Finasteride 5 MG TABLET PO (08:21)
[2023-01-09] MEDS: Tamsulosin HCL 0.4 MG CAPSULE PO (08:21)
[2023-01-09] MEDS: oxyCODONE HCl Immed Release 5 MG TABLET PO ×2 (08:30→15:35)
[2023-01-09] MEDS: Bethanechol Chloride 25 MG TABLET PO ×2 (08:30→21:19)
[2023-01-09] MEDS: 0.9 % Sodium Chloride Flush 3 ML SYRINGE IVFLUSH ×3 (08:30→21:19)
[2023-01-09] MEDS: Clopidogrel Bisulfate 75 MG TABLET PO (08:30)
[2023-01-09] MEDS: Metoprolol Succinate ER 100 MG TAB.ER.24H PO (08:44)
--- NOTE | 2023-01-09 10:21 | P.PNIM_ITS ---
Subjective Subjective Date of Service: 01/09/23 Interval History: no change in neck pain pattern Physical Exam Vital Signs: Vital Signs: Last Vital Signs Temp 98.5 F 01/09/23 06:49 Pulse 85 01/09/23 06:49 Resp 18 01/09/23 06:49 BP 144/61 H 01/09/23 06:49 Pulse Ox 93 01/09/23 06:49 O2 Del Method Room Air 01/09/23 06:49 BMI result Body Mass Index 30.8 Appearance: Alert. Oriented X3. No acute distress. Head: normocephalic, atraumatic. Eyes: Pupils equal, round and reactive to light. ENT: Pharynx normal. No tonsillar swelling or exudate. Neck: Normal inspection. Neck supple. CVS: Normal heart rate and rhythm. Pulses normal. + systolic murmur Respiratory: No respiratory distress. Breath sounds normal. Abdomen: Soft and nontender. +BS x4 Skin: Skin warm and dry. Normal skin color. Normal skin turgor. No rashes. Extremities: No lower extremity edema. No joint swelling. Neuro/psych: Oriented X 3. Bilateral LE weakness, equal and symmetrical UE strength. CN II-XII intact. , repetative. confused at times. gait not tested due to weakness Objective Data Active Medications Acetaminophen (Acetaminophen 325 Mg Tablet) 650 mg PO Q6H PRN PRN Reason: Pain, Mild (Pain Scale 1-3) Alprazolam (Alprazolam 0.5 Mg Tablet) 0.5 mg PO BID PRN PRN Reason: Anxiety Atorvastatin Calcium (Atorvastatin Calcium 80 Mg Tablet) 80 mg PO BEDTIME [facility] Last Admin: 01/08/23 19:47 Dose: 80 mg Documented By: MEHREEN Bethanechol Chloride (Bethanechol Chloride 25 Mg Tablet) 25 mg PO BID [facility] Last Admin: 01/09/23 08:30 Dose: 25 mg Documented By: AILEEN Clopidogrel Bisulfate (Clopidogrel Bisulfate 75 Mg Tablet) 75 mg PO DAILY [facility] Last Admin: 01/09/23 08:30 Dose: 75 mg Documented By: AILEEN Cyanocobalamin (Cyanocobalamin (Vitamin B-12) 1,000 Mcg Tablet) 1,000 mcg PO BEDTIME [facility] Last Admin: 01/08/23 19:47 Dose: 1,000 mcg Documented By: MEHREEN Ezetimibe (Ezetimibe 10 Mg Tablet) 10 mg PO BEDTIME [facility] Last Admin: 01/08/23 21:05 Dose: Not Given Documented By: MEHREEN Non-Admin Reason: Med Not Available Empagliflozin (Empagliflozin 10 Mg Tablet) 10 mg PO DAILY [facility] Last Admin: 01/09/23 08:20 Dose: 10 mg Documented By: AILEEN Ferrous Sulfate (Ferrous Sulfate 324 Mg Tablet.) 324 mg PO BEDTIME [facility] Last Admin: 01/08/23 19:47 Dose: 324 mg Documented By: MEHREEN Finasteride (Finasteride 5 Mg Tablet) 5 mg PO DAILY [facility] Last Admin: 01/09/23 08:21 Dose: 5 mg Documented By: AILEEN Gabapentin (Gabapentin 400 Mg Capsule) 400 mg PO TID [facility] Last Admin: 01/09/23 08:20 Dose: 400 mg Documented By: AILEEN Glucose (Glucose Gel 15 Gm Gel..Gram.) 15 gm PO Q15M PRN; Protocol PRN Reason: per Hypoglycemia Standing Ord. Dextrose (D10) 250 mls @ 750 mls/hr IV Q15M PRN; Protocol PRN Reason: per Hypoglycemia Standing Ord. Insulin Glargine (Insulin Glargine,Hum.Rec.Anlog 100 Unit/Ml 10 Ml Vial) 45 unit SUBCUT BEDTIME [facility] Last Admin: 01/08/23 21:04 Dose: 45 unit Documented By: MEHREEN Insulin Human Lispro (Insulin Lispro 100 Unit/Ml 3 Ml Vial) 0 unit SUBCUT QIDACHS [facility]; Protocol Last Admin: 01/09/23 08:25 Dose: Not Given Documented By: AILEEN Non-Admin Reason: No Insulin Coverage Melatonin (Melatonin 3 Mg Tablet) 6 mg PO BEDTIME PRN PRN Reason: Insomnia Metoprolol Succinate (Metoprolol Succinate Er 100 Mg Tab.Er.24h) 100 mg PO DAILY [facility]; Protocol Last Admin: 01/09/23 08:44 Dose: 100 mg Documented By: AILEEN Omeprazole (Omeprazole 20 Mg Capsule.) 20 mg PO BID@0630,1630 [facility] Last Admin: 01/09/23 06:00 Dose: 20 mg Documented By: MEHREEN Ondansetron HCl (Ondansetron Hcl 4 Mg/2 Ml Vial) 4 mg IVPUSH Q8H PRN PRN Reason: Nausea and Vomiting Oxycodone HCl (Oxycodone Hcl Immed Release 5 Mg Tablet) 5 mg PO Q6H PRN PRN Reason: Pain, Severe (Pain Scale 7-10) Last Admin: 01/09/23 08:30 Dose: 5 mg Documented By: AILEEN Oxycodone HCl (Oxycodone Hcl Immed Release 5 Mg Tablet) 5 mg PO Q6H PRN PRN Reason: pain (scale score 4-6) Pharmacy Consult (Consult Rx Perform Med Rec) 1 each MISCELLANE ONCE PRN PRN Reason: Consult order Senna (Sennosides 8.6 Mg Tablet) 17.2 mg PO BEDTIME PRN PRN Reason: Constipation Sodium Chloride (0.9 % Sodium Chloride Flush 3 Ml Syringe) 3 ml IVFLUSH QSHIFT [facility] Last Admin: 01/09/23 08:30 Dose: 3 ml Documented By: AILEEN Tamsulosin HCl (Tamsulosin Hcl 0.4 Mg Capsule) 0.4 mg PO DAILY [facility] Last Admin: 01/09/23 08:21 Dose: 0.4 mg Documented By: AILEEN Torsemide (Torsemide 20 Mg Tablet) 20 mg PO DAILY [facility]; Protocol Last Admin: 01/09/23 08:20 Dose: 20 mg Documented By: AILEEN Labs 01/08/23 12:14 01/08/23 12:14 Labs: Laboratory Results - last 24 hr 01/08/23 01/08/23 01/08/23 12:14 12:14 12:14 MCV 94.9 MCH 30.7 MCHC 32.4 RDW 14.6 Plt Count 54 L D MPV 11.6 Immature Gran % (Auto) 1.5 H Neut % (Auto) 84.9 H Lymph % (Auto) 3.4 L [place] % (Auto) 9.8 Eos % (Auto) 0.2 Baso % (Auto) 0.2 Lymph # (Auto) 0.4 L [place] # (Auto) 1.2 Eos # (Auto) 0.0 Baso # (Auto) 0.0 Abs Immat Gran (auto) 0.19 H Absolute Neuts (auto) 10.7 H Absolute Nucleated RBC 0.000 Nucleated RBC % (auto) 0.0 Anion Gap 10 L Estim Creat Clear Calc 53.5 Estimated GFR 55 POC Glucose Random Glucose 156 H Calcium 8.2 L Magnesium 2.6 Total Bilirubin 1.8 H Direct Bilirubin 0.7 H AST 43 H ALT 102 H Alkaline Phosphatase 161 H Troponin I High Sens 9.1 Total Protein 6.0 L Albumin 3.0 L TSH Urine Color Urine Appearance Urine pH Ur Specific [place] Urine Protein Urine Glucose (UA) Urine Ketones Urine Blood Urine Nitrite Ur Leukocyte Esterase Urine RBC Urine WBC Ur Squamous Epith Cells Urine Bacteria Hyaline Casts Urine Opiates Screen Urine Fentanyl Screen Ur Barbiturates Screen Ur Phencyclidine Scrn Ur Amphetamines Screen U Benzodiazepines Scrn Urine Cocaine Screen U Marijuana (THC) Screen Ethyl Alcohol 01/08/23 01/08/23 01/08/23 12:14 15:50 15:50 MCV MCH MCHC RDW Plt Count MPV Immature Gran % (Auto) Neut % (Auto) Lymph % (Auto) [place] % (Auto) Eos % (Auto) Baso % (Auto) Lymph # (Auto) [place] # (Auto) Eos # (Auto) Baso # (Auto) Abs Immat Gran (auto) Absolute Neuts (auto) Absolute Nucleated RBC Nucleated RBC % (auto) Anion Gap Estim Creat Clear Calc Estimated GFR POC Glucose Random Glucose Calcium Magnesium Total Bilirubin Direct Bilirubin AST ALT Alkaline Phosphatase Troponin I High Sens Total Protein Albumin TSH 1.27 Urine Color Yellow Urine Appearance Clear Urine pH 5.5 Ur Specific [place] 1.025 Urine Protein 30 (1+) H Urine Glucose (UA) >=1000 H Urine Ketones Negative Urine Blood Negative Urine Nitrite Negative Ur Leukocyte Esterase Negative Urine RBC 3-5 H Urine WBC 0-5 Ur Squamous Epith Cells 0-2 Urine Bacteria 1+ Hyaline Casts 0-2 Urine Opiates Screen Not Detected Urine Fentanyl Screen Not Detected Ur Barbiturates Screen Not Detected Ur Phencyclidine Scrn Not Detected Ur Amphetamines Screen Not Detected U Benzodiazepines Scrn Not Detected Urine Cocaine Screen Not Detected U Marijuana (THC) Screen Not Detected Ethyl Alcohol < 10 01/08/23 01/09/23 20:06 07:32 MCV MCH MCHC RDW Plt Count MPV Immature Gran % (Auto) Neut % (Auto) Lymph % (Auto) [place] % (Auto) Eos % (Auto) Baso % (Auto) Lymph # (Auto) [place] # (Auto) Eos # (Auto) Baso # (Auto) Abs Immat Gran (auto) Absolute Neuts (auto) Absolute Nucleated RBC Nucleated RBC % (auto) Anion Gap Estim Creat Clear Calc Estimated GFR POC Glucose 133 H 128 H Random Glucose Calcium Magnesium Total Bilirubin Direct Bilirubin AST ALT Alkaline Phosphatase Troponin I High Sens Total Protein Albumin TSH Urine Color Urine Appearance Urine pH Ur Specific [place] Urine Protein Urine Glucose (UA) Urine Ketones Urine Blood Urine Nitrite Ur Leukocyte Esterase Urine RBC Urine WBC Ur Squamous Epith Cells Urine Bacteria Hyaline Casts Urine Opiates Screen Urine Fentanyl Screen Ur Barbiturates Screen Ur Phencyclidine Scrn Ur Amphetamines Screen U Benzodiazepines Scrn Urine Cocaine Screen U Marijuana (THC) Screen Ethyl Alcohol Assessment and Plan (1) Weakness: Status: Acute (2) Neck pain: Status: Acute Plan 77-year-old male with a past medical history of hypertension, hyperlipidemia, irritable bowel syndrome, ANUJA maintained on CPAP, aortic stenosis, coronary artery disease will be admitted due to acute neck pain with radicular pain to left? shoulder Acute neck pain with radicular right shoulder pain--recent CT showed degenerative changes. Probably need MRI for better investiagion but cannot be done until Thursday at earliest. Treat with pain med, get neuro consult as well. Oxycodone for pain, PT consult Chronic unspecified? heart failure--has some leg edema but not complaining of of sob, continue home dose of diuretics History of adenocarcinoma of prostate treated with laser therapy/radiation in 2013 Urinary retention BPH -Continue finasteride/tamsulosin as well as bethanechol 25 mg b.i.d..? Cirrhosis of liver--stable Anemia, chronic, h/h stable Hypertension--continue home meds Hyperlipidemia-Statin Insulin-dependent diabetes mellitus -Insulin sliding scale with nutrition.? Hypoglycemia protocol in place.? Continue Lantus.? Gastroesophageal reflux disease -Oral PPI continued.? Patient is a full code DVT prophylaxis-intermittent sequential boots.? Hold chemical DVT prophylaxis due to thrombocytopenia. HCP/person to contact is patient's Myesha Lopes, Obsv for neck pain Time Spent With Patient Time: Total time managing care of this patient today ____ minutes. Quality Stroke Does the patient have a stroke diagnosis?: No VTE Prior VTE?: No VTE Risk Level:: Medical - moderate - high VTE Device Contraindication: Treatment Not Indicated VTE Drug Contraindication: N/A - Med Ordered
--- NOTE | 2023-01-09 10:24 | PC.NURSE ---
Patient medicated for neck pain with oxycodone with good effect. Resting comfortably at present.
[2023-01-09 12:11] LABS: Glucose, Whole Blood 182 mg/dL (60-115)
--- NOTE | 2023-01-09 12:33 | PC.NURSE ---
Pt admitted to 360 from the ED in a bed accompanied by . Pt oriented to the room and call allen system bed alarm in use pt instructed to call for out of bed assist
[2023-01-09] MEDS: Insulin Lispro 100 UNIT/ML 3 ML VIAL SUBCUT ×3 (12:41→21:20)
--- NOTE | 2023-01-09 13:10 | MHC.CM.PN ---
Addendum entered by Savannah Timmons 01/09/23 15:05: CM MET WITH PT AND AT BEDSIDE PTS REPORTS PT IS ACTIVE WITH [facility] FOR SN ONLY SHE IS AWARE HE WILL NEED PT AT DC SHE IS ALSO AWARE HE WILL NEED A RX FOR A ROLLING WALKER PTS ALSO ASKED IF HE WOULD SEE THE MD TODAY PT DOES CONFIRM HE SAW A MALE MD IN THE ED OF CM CONFIRMED VIA TIGER, PT WAS SEEN BY HOSPITALIST MESSAGE SENT TO PTS NURSE IN CASE HAD FOLLOW UP QUESTIONS ABOUT IT REFERRAL SENT TO [facility] INFORMING THEM OF PTS PT NEEDS Original Note: PT REPORTS HE LIVES WITH HIS AND HAS A VNA HOWEVER DOES NOT KNOW THE NAME HE REPORTS HE IS INDEPENDENT WITH CARE AND USES NO DME PT SAYS HE IS A AND USED [facility], HOWEVER HE IS NOT SERVICE CONNECTED PT SAYS HE IS COVID [place] AND BOOSTED HE SAYS HE HAS A HCP-COPY REQUESTED PCP: LEI DAVIS OBSERVATION NOTICE DELIVERED CURRENTLY DCP IS TBD PENDING PT EVAL HOME RESUME ? [facility] ?PT VS STR TRANSPORT TBD BY DISPO
[2023-01-09] MEDS: Enoxaparin Sodium 40 MG/0.4 ML SYRINGE SUBCUT (14:27)
--- NOTE | 2023-01-09 15:39 | PM.NEUROCN ---
History of Present Illness Data of Consult Service Date: 01/09/23 Primary Care Provider: Roberto Carlos Cisneros PA-C [facility] Reason for consult: Neck pain and encephalopathy This is a 77-year-old male with past medical history of severe aortic stenosis status post TAVR on 06/02, CAD, history of prostate cancer, complete heart block status post pacemaker on 06/02, type 2 diabetes, HLD, history of esophageal varices without bleeding, GERD, HTN, IBS. Recent admission to [place] from 12/29 to 01/01 and treated Neck pain and Hypoxia and at that time MRI could not be done because of paacemker. CT scan at that time showed Degenerative disc changes C5-C6 and C7-T1 disc levels with ventral and posterior spondylosis. There is AP canal stenosis C5-C6 disc level from disc bulge/osteophyte complex. There is no history of recent fever. His mental status now was better. Neck pain was also better but it was still affecting him. Review of Systems Review of Systems: No recent fever. [facility] Past Medical History Medical History Acute lower gastrointestinal bleeding Aortic stenosis CAD (coronary artery disease) Chronic fatigue COVID-19 vaccine series completed Diabetes type 2, uncontrolled Diabetic nephropathy associated with type 2 diabetes mellitus Diabetic 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 associated with type 2 diabetes mellitus DMII (diabetes mellitus, type 2) KOEHLER (dyspnea on exertion) Dyslipidemia Esophageal varices without bleeding GERD (gastroesophageal reflux disease) History of prostate cancer HTN (hypertension) Hypertension IBS (irritable colon syndrome) Iron deficiency anemia 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 On beta kayy at home ANUJA on CPAP Polyneuropathy Prostate cancer Spinal stenosis Varices of esophagus determined by endoscopy Family History Family History Father CVD (cardiovascular disease) Past heart attack Mother CVD (cardiovascular disease) Brain cancer Heart problem Daughter Breast cancer Sister Breast cancer Son Alive and well Family/Other Myocardial infarction Liver cancer Surgical History Surgical History H/O cataract extraction History of colonoscopy History of heart artery stent History of surgery History of surgery History of transurethral resection of prostate Hx of colonoscopy Hx of endoscopy Hx of esophagogastroduodenoscopy Social History Social History Household Members: Spouse Household Members Other:: Myesha Housing: House Are you a primary managed care liaison to a significant other at home: No Do you presently have visiting nurse or other home services: No Alcohol intake: never Patient Tobacco Use Status: Never used Tobacco e-Cigarette/Vaping Use: Never Used Second Hand Smoke Exposure: No service: Yes Current occupational status: retired Cognitive needs: No Hearing needs: No Vision needs: Yes Meds Allergies Allergy/AdvReac Type Severity Reaction Status Date / Time KARL Inhibitors Allergy Severe Angioedema Verified 12/30/22 10:32 dextran 40 [DEXTRAN 40] Allergy Intermediate tachycardia Verified 10/20/22 14:56 latex [LATEX] Allergy Mild BLISTERS Verified 10/20/22 14:56 Iodinated Contrast Media Allergy Unknown UNKNOWN Verified 10/20/22 14:56 [CONTRAST,IV] Active Medications: Current Medications Acetaminophen (Acetaminophen 325 Mg Tablet) 650 mg PO Q6H PRN PRN Reason: Pain, Mild (Pain Scale 1-3) Alprazolam (Alprazolam 0.5 Mg Tablet) 0.5 mg PO BID PRN PRN Reason: Anxiety Atorvastatin Calcium (Atorvastatin Calcium 80 Mg Tablet) 80 mg PO BEDTIME [facility] Last Admin: 01/08/23 19:47 Dose: 80 mg Bethanechol Chloride (Bethanechol Chloride 25 Mg Tablet) 25 mg PO BID [facility] Last Admin: 01/09/23 08:30 Dose: 25 mg Clopidogrel Bisulfate (Clopidogrel Bisulfate 75 Mg Tablet) 75 mg PO DAILY [facility] Last Admin: 01/09/23 08:30 Dose: 75 mg Cyanocobalamin (Cyanocobalamin (Vitamin B-12) 1,000 Mcg Tablet) 1,000 mcg PO BEDTIME [facility] Last Admin: 01/08/23 19:47 Dose: 1,000 mcg Ezetimibe (Ezetimibe 10 Mg Tablet) 10 mg PO BEDTIME [facility] Last Admin: 01/08/23 21:05 Dose: Not Given Empagliflozin (Empagliflozin 10 Mg Tablet) 10 mg PO DAILY [facility] Last Admin: 01/09/23 08:20 Dose: 10 mg Enoxaparin Sodium (Enoxaparin Sodium 40 Mg/0.4 Ml Syringe) 40 mg SUBCUT Q24H [facility] Last Admin: 01/09/23 14:27 Dose: 40 mg Ferrous Sulfate (Ferrous Sulfate 324 Mg Tablet.) 324 mg PO BEDTIME [facility] Last Admin: 01/08/23 19:47 Dose: 324 mg Finasteride (Finasteride 5 Mg Tablet) 5 mg PO DAILY [facility] Last Admin: 01/09/23 08:21 Dose: 5 mg Gabapentin (Gabapentin 400 Mg Capsule) 400 mg PO TID [facility] Last Admin: 01/09/23 14:13 Dose: 400 mg Glucose (Glucose Gel 15 Gm Gel..Gram.) 15 gm PO Q15M PRN; Protocol PRN Reason: per Hypoglycemia Standing Ord. Dextrose (D10) 250 mls @ 750 mls/hr IV Q15M PRN; Protocol PRN Reason: per Hypoglycemia Standing Ord. Insulin Glargine (Insulin Glargine,Hum.Rec.Anlog 100 Unit/Ml 10 Ml Vial) 45 unit SUBCUT BEDTIME [facility] Last Admin: 01/08/23 21:04 Dose: 45 unit Insulin Human Lispro (Insulin Lispro 100 Unit/Ml 3 Ml Vial) 0 unit SUBCUT QIDACHS [facility]; Protocol Last Admin: 01/09/23 12:41 Dose: 2 unit Melatonin (Melatonin 3 Mg Tablet) 6 mg PO BEDTIME PRN PRN Reason: Insomnia Metoprolol Succinate (Metoprolol Succinate Er 100 Mg Tab.Er.24h) 100 mg PO DAILY [facility]; Protocol Last Admin: 01/09/23 08:44 Dose: 100 mg Omeprazole (Omeprazole 20 Mg Capsule.) 20 mg PO BID@0630,1630 [facility] Last Admin: 01/09/23 15:33 Dose: 20 mg Ondansetron HCl (Ondansetron Hcl 4 Mg/2 Ml Vial) 4 mg IVPUSH Q8H PRN PRN Reason: Nausea and Vomiting Oxycodone HCl (Oxycodone Hcl Immed Release 5 Mg Tablet) 5 mg PO Q6H PRN PRN Reason: Pain, Severe (Pain Scale 7-10) Last Admin: 01/09/23 15:35 Dose: 5 mg Oxycodone HCl (Oxycodone Hcl Immed Release 5 Mg Tablet) 5 mg PO Q6H PRN PRN Reason: pain (scale score 4-6) Pharmacy Consult (Consult Rx Perform Med Rec) 1 each MISCELLANE ONCE PRN PRN Reason: Consult order Senna (Sennosides 8.6 Mg Tablet) 17.2 mg PO BEDTIME PRN PRN Reason: Constipation Sodium Chloride (0.9 % Sodium Chloride Flush 3 Ml Syringe) 3 ml IVFLUSH QSHIFT [facility] Last Admin: 01/09/23 15:33 Dose: 3 ml Tamsulosin HCl (Tamsulosin Hcl 0.4 Mg Capsule) 0.4 mg PO DAILY [facility] Last Admin: 01/09/23 08:21 Dose: 0.4 mg Torsemide (Torsemide 20 Mg Tablet) 20 mg PO DAILY [facility]; Protocol Last Admin: 01/09/23 08:20 Dose: 20 mg Home Medications Medication Instructions Recorded Confirmed Last Taken Type ferrous sulfate 325 mg (65 mg 325 mg PO BEDTIME 10/17/20 01/08/23 12/28/22 History iron) tablet clopidogrel 75 mg tablet 1 tab PO DAILY 06/18/22 01/08/23 12/29/22 History metoprolol succinate 100 mg 100 mg PO DAILY 09/03/22 01/08/23 12/29/22 History tablet,extended release 24 hr torsemide 20 mg tablet 20 mg PO DAILY 09/03/22 01/08/23 12/29/22 History cyanocobalamin (vitamin B-12) 500 1,000 mcg PO BEDTIME 12/29/22 01/08/23 12/28/22 History mcg tablet dulaglutide 0.75 mg/0.5 mL 0.75 mg subcut TU@0900 12/29/22 01/08/23 12/23/22 History subcutaneous pen injector (Trulicity) insulin degludec 200 unit/mL (3 64 unit subcut BEDTIME 12/29/22 01/08/23 12/28/22 History mL) subcutaneous pen (Tresiba FlexTouch U-200 insulin) omeprazole 20 mg capsule,delayed 20 mg PO BID@0630,1630 12/29/22 01/08/23 12/29/22 History release Physical Exam Vital Signs: Vital Signs: Last Vital Signs Temp 99.3 F 01/09/23 12:34 Pulse 87 01/09/23 14:09 Resp 22 H 01/09/23 12:34 BP 153/70 H 01/09/23 14:09 Pulse Ox 95 01/09/23 14:09 O2 Del Method Room Air 01/09/23 12:34 BMI result Body Mass Index 31.0 Neuro: Other: He is alert and awake with normal spontaneity of speech fluency comprehension and affect. Face is symmetrical. Visual kramer are full. He is able to lift his both arms up to 90 degrees. No significant weakness is noted in arms. Deep tendon reflexes are trace to absent with bilateral extensor plantar. Results Labs 01/08/23 12:14 01/08/23 12:14 Labs: Urine 01/08/23 Range/Units 15:50 Urine Color Yellow Urine Appearance Clear Urine pH 5.5 (5.0-9.0) Ur Specific Levels 1.025 (1.005-1.025) Urine Protein 30 (1+) H (Neg-Trace) mg/dL Urine Glucose (UA) >=1000 H (Negative) mg/dL Head CT revealed moderate cerebral atrophy and moderate chronic microvascular ischemic changes. Cervical spine CT revealed C5-6 spondylitic disease with no significant stenosis. Assessment and Plan (1) Cervical spondyloarthritis: Status: Acute Medical management is recommended with p.r.n. use of soft collar and p.r.n. Tylenol with 5 mg cyclobenzaprine or small dose of gabapentin might be an option. Steroid should be avoided as he did not respond well to it (2) Hyperreflexia: Status: Acute It could be due to microvascular disease but it also suggested possibility of cervical cord disease. Unfortunately we could not get an MRI. As surgery would likely not be a consideration, no further intervention is needed. (3) Encephalopathy: Status: Acute Likely from exposure to steroids. Avoidance is recommended. Time Spent With Patient Time: Total time managing care of this patient today ____ minutes. Procedures Date of Service Date of Service: 01/09/23
[2023-01-09 16:29] LABS: Glucose, Whole Blood 228 mg/dL (60-115)
[2023-01-09 21:08] LABS: Glucose, Whole Blood 239 mg/dL (60-115)
[2023-01-09] MEDS: Cyanocobalamin (Vitamin B-12) 1,000 MCG TABLET 1000 MCG PO (21:19)
[2023-01-09] MEDS: Ferrous Sulfate 324 MG TABLET.DR PO (21:19)
[2023-01-09] MEDS: Atorvastatin Calcium 80 MG TABLET PO (21:19)
[2023-01-09] MEDS: Ezetimibe 10 MG TABLET PO (21:19)
[2023-01-09] MEDS: Insulin Glargine,Hum.rec.anlog 100 UNIT/ML 10 ML VIAL 45 UNIT SUBCUT (21:20)
--- NOTE | 2023-01-10 01:00 | PC.RT ---
Placed pt on NOC CPAP [id number] RA with Nasal Pillows
[2023-01-10 03:17] VITALS: BP 143/66; PULSE 86; RESP 19; TEMP 36.9; O2SAT 96
[2023-01-10] MEDS: Omeprazole 20 MG CAPSULE.DR PO (05:31)
[2023-01-10 07:40] VITALS: BP 129/60; PULSE 85; RESP 18; TEMP 37; O2SAT 92
[2023-01-10 07:41] LABS: Glucose, Whole Blood 185 mg/dL (60-115)
[2023-01-10] MEDS: 0.9 % Sodium Chloride Flush 3 ML SYRINGE IVFLUSH (08:26)
[2023-01-10] MEDS: Metoprolol Succinate ER 100 MG TAB.ER.24H PO (08:27)
[2023-01-10] MEDS: Tamsulosin HCL 0.4 MG CAPSULE PO (08:28)
[2023-01-10] MEDS: Empagliflozin 10 MG TABLET PO (08:28)
[2023-01-10] MEDS: Finasteride 5 MG TABLET PO (08:28)
[2023-01-10] MEDS: Clopidogrel Bisulfate 75 MG TABLET PO (08:28)
[2023-01-10] MEDS: Gabapentin 400 MG CAPSULE PO (08:28)
[2023-01-10] MEDS: Bethanechol Chloride 25 MG TABLET PO (08:28)
[2023-01-10] MEDS: Insulin Lispro 100 UNIT/ML 3 ML VIAL SUBCUT ×2 (08:29→12:10)
[2023-01-10] MEDS: Torsemide 20 MG TABLET PO (08:30)
--- NOTE | 2023-01-10 10:51 | P.DS_ITS ---
DS: Providers Provider Date of Service: 01/10/23 Date of admission: 01/08/23 17:03 Primary care physician: Roberto Carlos Cisneros PA-C Consults: 01/09/23 10:29 Consult to Neurology Routine Consulting Provider: [facility] Reason for consultation: neck pain and weakness Has provider been notified: No DS: Diagnosis Discharge Diagnosis (1) Cervical spondyloarthritis: Status: Acute (2) Hyperreflexia: Status: Acute (3) Encephalopathy: Status: Acute DS: Summary Hospital Course Hospital Course: [facility] Complaint: weakness This is a 77-year-old male with past medical history of severe aortic stenosis status post TAVR on 06/02, CAD, history of prostate cancer, complete heart block status post pacemaker on 06/02, type 2 diabetes, HLD, history of esophageal varices without bleeding, GERD, HTN, IBS. Recent admission to [place] from 12/29 to 01/01 and treated Neck pain and Hypoxia and at that time MRI could not be done because of paacemker. CT scan at that time showed Degenerative disc changes C5- C6 and C7-T1 disc levels with ventral and posterior spondylosis. There is AP canal stenosis C5-C6 disc level from disc bulge/osteophyte complex. There is a small osteophyte/bone fragment within the right neural foramina narrowing the neural foramina and likely impinging the nerve root. The case at that time was discussed with [facility] Neurosurgery team with no indication for intervention.? He is essentially coming back becuase of confusion, agitation, unsteadiness of his gait which he and attributes to prednisone. He sounded pretty coherent but still complaint of pain in the neck, shoulder pain Hospital course: Patient presented with confusion and weakness, there was no localized weakness. He had had a prior neck injury which was managed conservatively. He was confused according to , likely from steroid, bethancol and possibly oxycodone. Head CT showed no acute finding. He has been lucid since been in the hospital. He has been evaluted by PT with recommendation for home PT. Neurology also saw him and recommend no additional testing or intervention. Recommend Ultram for pain rather than oxycodone. Time Spent with Patient Time attestation: Total time managing care of this patient today ____ minutes. Discharge coordination time: Greater than 30 minutes Quality: Safe Use of Opioids Does Pt have an Active Cancer Diagnosis on the Problem List?: No Quality: Stroke Does the patient have a stroke diagnosis?: No Physical Exam Vital Signs: Vital Signs: Last Vital Signs Temp 98.6 F 01/10/23 07:40 Pulse 85 01/10/23 07:40 Resp 18 01/10/23 07:40 BP 129/60 01/10/23 07:40 Pulse Ox 92 01/10/23 07:40 O2 Del Method Room Air 01/10/23 07:40 BMI result Body Mass Index 31.0 Const: Other: General: AO X 3, no acute distress Resp: CTA bilateral CVS: S1,S2,RRR GI: +BS, NT, no distention Skin: No rash Neuro: motor grossly intact Psych: appropriate affect DS: Data Data Completed and Pending Completed studies during hospitalization [Text1]: Procedures Destruction of Bladder Neck, Via Natural or Artificial Opening Endoscopic (06/17/22) Extirpation of Matter from Bladder, Via Natural or Artificial Opening Endoscopic (06/17/22) Transfusion of Nonautologous Red Blood Cells into Peripheral Vein, Percutaneous Approach (06/17/22) Labs on day of discharge: Laboratory Results - last 24 hr 01/09/23 01/09/23 01/09/23 12:07 16:25 21:05 POC Glucose 182 H 228 H 239 H 01/10/23 07:36 POC Glucose 185 H Discharge Plan Discharge Anticipated Discharge Date/Time: 01/10/23 10:48 Patient Disposition: Home Health Service Discharge Diagnosis: Encephalopathy, neck pain, weakness Referrals: Roberto Carlos Cisneros PA-C [Primary Care Provider] - 1 Week Discharge Medications: Continued (DME) pen needle, diabetic [BD Gifty 2nd Gen Pen Needle] 32 gauge x 5/32 needle See Rx Instructions .MEDSUPPLY Qty: 150 5RF Rx Instructions: 4 times a day tamsulosin 0.4 mg capsule 0.4 mg PO DAILY 90 Days Qty: 90 1RF finasteride [Proscar] 5 mg tablet 5 mg PO DAILY 90 Days Qty: 90 1RF atorvastatin 80 mg tablet 80 mg PO BEDTIME 90 Days Qty: 90 2RF ezetimibe [Zetia] 10 mg tablet 10 mg PO BEDTIME 90 Days Qty: 90 2RF Farxiga 10 mg tablet 10 mg PO DAILY Qty: 90 0RF insulin aspart U-100 [Novolog FlexPen U-100 Insulin] 100 unit/mL (3 mL) insulin pen 2 - 25 unit subcut TIDAC Qty: 15 2RF (DME) lancets [FreeStyle Lancets] 28 gauge misc See Rx Instructions .Route Qty: 100 0RF Rx Instructions: As directed (DME) FreeStyle Marleni 14 Day [place] Misc See Rx Instructions .Route Qty: 1 0RF Rx Instructions: As directed (DME) FreeStyle Marleni 14 Day Sensor Kit See Rx Instructions .Route Qty: 2 2RF Rx Instructions: As directed (DME) blood-glucose meter [FreeStyle Lite Meter] Kit See Rx Instructions .Route Qty: 1 0RF Rx Instructions: As directed (DME) FreeStyle Test Strip See Rx Instructions .Route Qty: 100 0RF Rx Instructions: three times per day gabapentin 400 mg capsule 400 mg PO TID Qty: 90 5RF bethanechol chloride 25 mg tablet 25 mg PO BID 90 Days Qty: 180 1RF clopidogrel 75 mg tablet 1 tab PO DAILY cyanocobalamin (vitamin B-12) 500 mcg Tablet 1,000 mcg PO BEDTIME omeprazole 20 mg capsule,delayed release(DR/EC) 20 mg PO BID@0630,1630 insulin degludec [Tresiba FlexTouch U-200] 200 unit/mL (3 mL) insulin pen 64 unit subcut BEDTIME Trulicity 0.75 mg/0.5 mL pen injector 0.75 mg subcut TU@0900 Rx Instructions: FUTURE REFILLS FROM PCP. ferrous sulfate 325 mg (65 mg iron) tablet 325 mg PO BEDTIME (DME) blood pressure test kit-large Kit See Rx Instructions .Route Qty: 1 0RF Rx Instructions: As directed alprazolam 0.5 mg tablet 0.5 mg PO BID PRN (Reason: Anxiety) Qty: 30 2RF torsemide 20 mg tablet 20 mg PO DAILY metoprolol succinate 100 mg tablet extended release 24 hr 100 mg PO DAILY Discontinued oxycodone 5 mg tablet 5 mg PO Q6H PRN (Reason: pain (scale score 4-6)) Qty: 20 0RF Rx Instructions: Partial Fill upon patient request. dexamethasone 4 mg tablet See Rx Instructions .ROUTE .COMPLEX Qty: 18 0RF Rx Instructions: 4 mg orally ;1 tab p.o. t.i.d. x3 days, 1 pill p.o. b.i.d. x3 days, 1 pill daily x3 days Discharge Orders: Discharge Order (Routine); Ordered 01/10/23 Ordered By: Néstor Terry Diet: Advance to usual diet Activity on Discharge: As tolerated Stand Alone Forms: Patient Portal Discharge page Care Plan Goals: Full recovery from neck pain Health Concerns: neck pain, weakness, confusion ersolved Plan of Treatment: Home with home PT, walker, tylenol and tramadol for pain if needed Assessment: as above
--- NOTE | 2023-01-10 11:22 | MHC.CM.PN ---
PER REVIEW OF PRIOR RECENT VISIT, PATIENT WAS DC HOME WITH [facility] REFERRAL PLACED TO [facility] TO INFORM OF DC AND NEW NEED FOR HOME P.T.
[2023-01-10 11:30] LABS: Glucose, Whole Blood 265 mg/dL (60-115)
== END 2023-01-10 15:15 | disposition home health service (06) ==
LOC: HO.ED 15:57 → HO.EDOVER 17:08 → HO.S3 01-09 09:43
PROVIDERS: Physician Assistant; Admitting Provider Internal Medicine; Emergency Provider Emergency Medicine; PCP Physician Assistant; Visit Provider Internal Medicine
DX: M54.2 Cervicalgia (principal); G93.40 Encephalopathy, unspecified; R53.1 Weakness; M47.812 Spondylosis without myelopathy or radiculopathy, cervical region; R29.2 Abnormal reflex; R41.0 Disorientation, unspecified; R45.1 Restlessness and agitation; R60.0 Localized edema; E11.9 Type 2 diabetes mellitus without complications; I10 Essential (primary) hypertension; E78.5 Hyperlipidemia, unspecified; D64.9 Anemia, unspecified; K74.60 Unspecified cirrhosis of liver; G47.33 Obstructive sleep apnea (adult) (pediatric); Z99.89 Dependence on other enabling machines and devices; Z95.0 Presence of cardiac pacemaker; Z85.46 Personal history of malignant neoplasm of prostate; Z79.899 Other long term (current) drug therapy; Z79.02 Long term (current) use of antithrombotics/antiplatelets; Z79.4 Long term (current) use of insulin; Z79.52 Long term (current) use of systemic steroids
CPT/HCPCS: 36415; 51701; 70450; 80048; 80076; 80307; 81001; 81003; 82077; 82947; 83735; 84443; 84484; 85025; 93005; 94660; 96360; 96361; 96372; 97162; 99221; 99285; J1650

== ENCOUNTER 2023-04-08 14:15 | Outpatient (AMB) | payer MEDICARE, SELFPAY ==
[2023-04-08 14:31] VITALS: BP 114/68; PULSE 62; O2SAT 98; BMI 27.5
--- NOTE | 2023-04-08 14:31 | MHC.PC.OV ---
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 Required: No Accompanied by: Self / Same As Patient Allergies KARL Inhibitors Allergy (Severe, Verified 04/08/23 14:53) Angioedema dextran 40 [DEXTRAN 40] Allergy (Intermediate, Verified 04/08/23 14:53) tachycardia latex [LATEX] Allergy (Mild, Verified 04/08/23 14:53) BLISTERS lisinopril [From Zestril] Allergy (Mild, Verified 04/08/23 14:53) Unknown Iodinated Contrast Media [CONTRAST,IV] Allergy (Unknown, Verified 04/08/23 14:53) UNKNOWN Medication List - Last Reconciled 04/08/23 by Roberto Carlos Cisneros PA-C alprazolam 0.5 mg PO BID PRN aspirin (Adult Aspirin Regimen) 81 mg PO DAILY 30 days atorvastatin 80 mg PO BEDTIME 30 days bethanechol chloride 25 mg PO BID 90 days blood pressure test kit-large As directed blood sugar diagnostic (FreeStyle Test strips) three times per day blood-glucose meter (FreeStyle Lite Meter kit) As directed carvedilol 6.25 mg PO BID 30 days clopidogrel 75 mg PO DAILY 30 days cyanocobalamin (vitamin B-12) 1,000 mcg PO BEDTIME dapagliflozin propanediol (Farxiga) 10 mg PO DAILY 30 days dulaglutide (Trulicity) 0.75 mg (0.5 mL) subcut TU@0900 4 weeks ezetimibe (Zetia) 10 mg PO DAILY finasteride (Proscar) 5 mg PO DAILY 90 days flash glucose scanning reader (DoNationStyle Marleni 14 Day [place]) As directed flash glucose sensor (FreeStyle Marleni 14 Day Sensor kit) As directed folic acid 0.8 mg PO DAILY 30 days furosemide 40 mg PO DAILY PRN 30 days gabapentin 400 mg PO TID 30 days insulin aspart U-100 (Novolog FlexPen U-100 Insulin aspart) 2 - 25 units (0.02 - 0.25 mL) subcut TIDAC insulin degludec (Tresiba FlexTouch U-200 insulin) 60 units (0.3 mL) subcut BEDTIME 30 days lancets (FreeStyle Lancets) As directed midodrine 10 mg PO DAILY PRN 30 days pantoprazole 40 mg PO DAILY pen needle, diabetic (BD Gifty 2nd Gen Pen Needle) 4 times a day spironolactone 100 mg PO DAILY tamsulosin 0.4 mg PO DAILY 90 days Tobacco use date assessed: 04/08/23 Fall risk assessment: No Falls in past year Last assessed Fall Risk: 04/08/23 Dental Screening Dental Screen Date: 04/08/23 Did you have a dental visit in the last 12 months?: Yes Did you have a dental problem in the last 6 months where you did not have access to dental care?: No Was dental information given to patient?: Patient has dentist HPI f/u DMII/ HTN/ CAD HPI Details patient is a 77-year-old male here today for a follow up visit ... Patient has a past medical history significant for aortic stenosis, type 2 diabetes, hypertension, h/o Prostate cancer, morbid obesity, anxiety, h/o bleed ulcer with anemia. ?.. ?CAD: Continues to follow cardiology once year.? Doing very well. Has a pacemaker placed. He did have some element decompensated heart failure benjamin procedure.? He reports he is feeling fairly well and has been lot more active around his home.? He is concerned about getting an aortic valve replacement. . ? ? .. ? Anxiety/grief: Continues to suffer from increased stress and anxiety due to his having to take care of his due to her failing health. Does use alprazolam on a p.r.n. basis for sleep and anxiety. Patient does report the medication helps him sleep and calmed down at times of increased anxiety. ? .. ? DMII: REport his blood sugars have been stable. Does check sugars 6 x per day. ? Is followed by Dr Singh/ Endocrine. Most recent A1c is 6.9. .. Iron deficiency Anemia:? Patient is followed by Hematology.? He does get IV infusions iron as maintenance. ? .. ? HTN: REports his blood pressure have stable, recent hospitalization for hypotension as well was started on nitrogen for systolic blood pressures below 120. No reports of headaches SOB, no Chest dyscomfort.., .? Will continue to follow at home and will call back if blood pressure remains elevated will make an adjustment in medication. ? .. ? Aortic stenosis:? Patient is status post aortic valve replacement complicated perioperatively patient urinary retention and anemia requiring blood transfusion.? Currently on anti-platelet therapy. ?.?. ? .. ? h/o esophageal bleed varacies:?Has been started on IV Iron infusions due to low levels.? Does have upcoming treatment. Patient recently received an endoscopy 04/29/2021 with 3 esophageal varices banded. No reported overt bleed.? --> Recent CBC showing a slightly lower hemoglobin and low iron level.? He is awaiting a call back from his life insurance underwriter about iron infusion. ? Laboratory Tests 11/21/21 08/13/22 08/29/22 13:55 13:45 14:03 RBC 3.61 L Hgb 10.3 L Creatinine 1.40 POC Glucose Hgb A1c (Clinic) 6.3 H 01/01/23 01/08/23 01/10/23 06:28 12:14 11:08 RBC 3.74 L D Hgb 9.4 L 11.5 L D Creatinine POC Glucose 265 H Hgb A1c (Clinic) 04/08/23 14:27 RBC Hgb Creatinine POC Glucose Hgb A1c (Clinic) 6.9 H [facility] Medical History (Updated 04/09/23 @ 07:12 by Roberto Carlos Cisneros PA-C) Acute lower gastrointestinal bleeding Aortic stenosis CAD (coronary artery disease) Chronic fatigue COVID-19 vaccine series completed Diabetes type 2, uncontrolled Diabetic nephropathy associated with type 2 diabetes mellitus Diabetic 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 associated with type 2 diabetes mellitus DMII (diabetes mellitus, type 2) KOEHLER (dyspnea on exertion) Dyslipidemia Esophageal varices without bleeding GERD (gastroesophageal reflux disease) History of prostate cancer HTN (hypertension) Hypertension IBS (irritable colon syndrome) Iron deficiency 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 On beta kayy at home ANUJA on CPAP Polyneuropathy Prostate cancer Spinal stenosis Varices of esophagus determined by endoscopy Surgical History H/O cataract extraction History of colonoscopy History of heart artery stent History of surgery History of surgery History of transurethral resection of prostate Hx of colonoscopy Hx of endoscopy Hx of esophagogastroduodenoscopy Family History Father CVD (cardiovascular disease) Past heart attack Mother CVD (cardiovascular disease) Brain cancer Heart problem Daughter Breast cancer Sister Breast cancer Son Alive and well Family/Other Myocardial infarction Liver cancer Social History Household Members: Spouse Household Members Other:: Myesha Housing: House Are you a primary farm or ranch animal caretaker to a significant other at home: No Do you presently have visiting nurse or other home services: No Alcohol intake: never Patient Tobacco Use Status: Never used Tobacco e-Cigarette/Vaping Use: Never Used Second Hand Smoke Exposure: No service: Yes Current occupational status: retired Cognitive needs: No Hearing needs: No Vision needs: Yes Questionnaire PHQ-9 Over the last 2 weeks, how often have you been bothered by any of the following problems? 1. Little interest or pleasure in doing things: not at all 2. Feeling down, depressed, or hopeless: not at all 3. Trouble falling or staying asleep, or sleeping too much: not at all 4. Feeling tired or having little energy: not at all 5. Poor appetite or overeating: not at all 6. Feeling bad about yourself - or that you are a failure or have let yourself or your family down: not at all 7. Trouble concentrating on things, such as reading the newspaper or watching television: not at all 8. Moving or speaking so slowly that other people could have noticed. Or the opposite - being so fidgety or restless that you have been moving around a lot more than usual: not at all 9. Thoughts that you would be better off or of hurting yourself in some way: not at all Total score: 0 Depression Screening Interpretation: Negative Source: Developed by Drs. Andrew Miranda, Cristiane Zabala, Jose Jenkins and colleagues, with an educational tanya from [employer]. Thrive Questionnaire Date Thrive assessed: 04/08/23 I am a: Patient What is your living situation today?: I have a steady place to live Within the past 12 months, did the food you bought not last and you didn't have the money to get more?: Never true Within the past 12 months, did you worry whether your food would run out before you got money to buy more?: Never true Do you have trouble paying for medicines?: No Do you have trouble getting transportation to medical appointments?: No Do you have trouble paying your heating and electricity bill?: No Do you have trouble taking care of your child, family member or friend?: No Do you have trouble with day-to-day activities such as bathing, preparing meals, shopping, managing finances, etc.?: No Are you currently unemployed and looking for a job?: No Are you interested in more education?: No Please select the resources that you would like help with: None Currently or been in a relationship where the following occur: no concerns reported AUDIT C Alcohol Use Questionnaire (AUDIT-C) 1. How often do you have a drink containing alcohol?: Never 3. How often do you have six or more drinks on one occasion?: Never Total Score: 0 GISELA-7 AMB Questionnaire GISELA-7 Date GISELA - 7 assessed: 04/08/23 Feeling nervous, anxious, or on edge: 0 = Not at all Not being able to stop or control worryin = Not at all Worrying too much about different things: 0 = Not at all Trouble relaxin = Not at all Being so restless that it is hard to sit still: 0 = Not at all Becoming easily annoyed or irritable: 0 = Not at all Feeling afraid as if something awful might happen: 0 = Not at all Total GISELA-7 score (0-4 normal; 5-9 mild; 10-14 moderate; 15-21 severe): 0 Source: Developed by Drs. Andrew Miranda, Cristiane Zabala, Jose Jenkins and colleagues, with an educational tanya from [employer]. Review of Systems Const Denies headache(s) Eyes Denies loss of vision ENT Denies vertigo, Denies dizziness, Denies headache(s) and Denies sore throat Card Denies chest pain, Denies leg edema and Denies lightheadedness Resp Denies cough, Denies hemoptysis and Denies wheezing GI Denies abdominal pain, Denies melena, Denies constipation, Denies diarrhea and Denies vomiting Denies dysuria, Denies urinary frequency and Denies urinary urgency Musc Denies arthralgias, Denies joint swelling, Denies numbness and Denies tingling Neuro Denies Abnormal speech present, Denies behavioral changes, Denies vertigo, Denies dizziness, Denies headache(s), Denies loss of vision, Denies memory loss, Denies numbness and Denies tingling Psych Denies anxiety, Denies behavioral changes, Denies depression, Denies memory loss and Denies panic attacks Anmol/Lymph Denies easy bleeding and Denies easy bruising Aller/Immun Denies wheezing Physical exam (Primary Care) Vital Signs: Last Vital Signs Pulse 62 04/08/23 14:31 BP 114/68 04/08/23 14:31 Pulse Ox 98 04/08/23 14:31 Oxygen Delivery Method Room Air 04/08/23 14:31 BMI result Body Mass Index 27.5 Tobacco/Smoking Status: Tobacco use Status Tobacco use date assessed 04/08/23 04/08/23 14:37 Patient Tobacco Use Status Never used Tobacco 04/08/23 14:37 e-Cigarette/Vaping Use Never Used 04/08/23 14:37 PHQ-9: PHQ-9 Score PHQ-9: Total score 0 04/08/23 14:54 Depression Screening Interpretation: Negative Thrive Assessment: Date of Thrive Assessment Date Thrive assessed 04/08/23 04/08/23 14:37 Currently or been in a relationship where the following occur: no concerns reported Const General: healthy appearing, no acute distress, alert and awake Nutritional Appearance: well nourished Orientation/consciousness: oriented to person, oriented to place and oriented to time HENMT Ears: TM's normal bilaterally General nose exam: Normal nasal mucous membranes and turbinates present Eyes Conjunctivae: conjunctivae normal Sclerae: sclerae normal Pupils: Equal, round and reactive pupils present Neck Neck: Yes no lymphadenopathy and Yes no JVD Thyroid: Thyroid normal Carotids: no bruits Resp Effort & Inspection: normal respiratory effort and not tachypneic Auscultation: no crackles, no rales, no rhonchi and no wheezes Cardio Rate: regular rate Rhythm: regular rhythm Heart sounds: no murmurs and normal S1 and S2 GI Palpation (GI): Soft to palpation, nontender, no hepatomegaly and no splenomegaly Auscultation: normal bowel sounds Skin General skin exam: no rashes or lesions noted and dry skin Neuro General: oriented to person, oriented to place and oriented to time Cranial nerves: Yes Equal, round and reactive pupils present Speech: No Abnormal speech present Gait exam (Neuro): Normal gait present Motor exam (neuro): no tremor noted Extrem Right upper extremity: full ROM Left upper extremity: full ROM Right lower extremity: full ROM; no edema Left lower extremity: full ROM; no edema Psych Mental Status: mental status grossly normal Speech and movement: Normal speech and movement present Affect: normal affect Attitude: cooperative Thought process: Normal thought process present Results AMB Hemoglobin A1c AMB Hemoglobin A1c 6.9 % Last Edit by Katelynn Laguerre on 04/08/23 14:47 Results Reviewed Results Reviewed: Laboratory Last Values Hgb A1c (Clinic) 6.9 % (4.0-6.0) H 04/08/23 14:27 Assessment and Plan Assessment & Plan (1) Diabetic 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 associated with type 2 diabetes mellitus: Code(s): E11.42 - Type 2 diabetes mellitus with diabetic 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 Plan: patient's type 2 diabetes well controlled with current anti-hyperglycemic medications. Today's A1c is 6.9. Goal A1c to be remaining below 7.0 (2) CAD (coronary artery disease): [facility] # [id number] Code(s): I25.10 - Atherosclerotic heart disease of [place] coronary artery without angina pectoris Qualifiers: Associated angina: without angina Coronary Disease-Associated Artery/Lesion type: [place] artery [place] vs. 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 Most recent lipid panel showing appropriate total cholesterol and LDL. Will continue current dose statin therapy. (3) Heart failure: Code(s): I50.9 - Heart failure, unspecified Qualifiers: Heart failure chronicity: chronic Heart failure type: diastolic Qualified Code(s): I50.32 - Chronic diastolic (congestive) heart failure Plan: patient clinically euvolemic on physical exam today. Continues on furosemide 40 mg daily. His weight has been fairly stable. No overt signs of decompensated Congestive heart failure recently. (4) Hypertension: Code(s): I10 - Essential (primary) hypertension Qualifiers: Hypertension type: essential hypertension Qualified Code(s): I10 - Essential (primary) hypertension Plan: blood pressure acceptable today in office. has had an issue with hypotension during recent hospitalization. 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 transplanted heart: [place] heart Heart failure I50.32 Heart failure chronicity: chronic Heart failure type: diastolic Hypertension I10 Hypertension type: essential hypertension
== END 2023-04-08 15:13 | disposition home or self-care (01) ==
PROVIDERS: PCP Physician Assistant; Visit Provider Physician Assistant
DX: E11.42 Type 2 diabetes mellitus with diabetic 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 (principal); I25.10 Atherosclerotic heart disease of native coronary artery without angina pectoris; I11.0 Hypertensive heart disease with heart failure; I50.32 Chronic diastolic (congestive) heart failure
CPT/HCPCS: 83036; 99214

== ENCOUNTER 2023-04-17 09:17 | Outpatient (REF) | payer MEDICARE, SELFPAY ==
[2023-04-17 10:42] LABS: Hematocrit 28.8 % (42.0-52.0); Hemoglobin 8.7 g/dl (14.0-18.0); Mean Corpuscular HGB Conc 30.2 g/dl (31.0-36.0); Mean Corpuscular Hemoglobin 26.7 pg (27.0-33.0); Mean Corpuscular Volume 88.3 fL (80.0-98.0); Mean Platelet Volume 12.4 fL (9.4-12.4); Platelet Count 113 X10*3/uL (160-400); Red Blood Count 3.26 X10*6/uL (4.60-5.80); Red Cell Distribution Width 16.4 % (11.0-16.0); White Blood Count 4.6 X10*3/uL (4.8-10.8)
[2023-04-17 11:08] LABS: Alanine Aminotransferase 25 U/L (0-40); Albumin Level 3.5 g/dL (3.5-5.0); Alkaline Phosphatase 124 U/L (39-117); Anion Gap 15 (12-20); Aspartate Amino Transferase 29 U/L (5-37); Bilirubin Total 0.8 mg/dL (0.0-1.0); Blood Urea Nitrogen 39 mg/dL (9-16); Calcium 8.7 mg/dL (8.4-10.2); Carbon Dioxide 20 mmol/L (22-29); Chloride 113 mmol/L (96-108); Cholesterol 120 mg/dL; Estimated Glomerular Filt Rate 53; Glucose Fasting 141 mg/dL (60-99); HDL Cholesterol 38 mg/dL; LDL Cholesterol Calculated 60 mg/dl; Potassium 5.1 mmol/L (3.3-5.1); Sodium 143 mmol/L (135-145); Total Protein 6.5 g/dL (6.5-8.0); Triglycerides 113 mg/dL
[2023-04-17 20:13] LABS: Prostate Specific Antigen < 0.10 ng/mL (<0.05-4.0)
== END 2023-04-17 09:18 | disposition home or self-care (01) ==
LOC: HO.LAB 09:17
PROVIDERS: Nurse Practitioner Family; PCP Physician Assistant; Visit Provider Physician Assistant
DX: Z12.5 Encounter for screening for malignant neoplasm of prostate (principal); N40.1 Benign prostatic hyperplasia with lower urinary tract symptoms; C61 Malignant neoplasm of prostate; E11.65 Type 2 diabetes mellitus with hyperglycemia; E78.5 Hyperlipidemia, unspecified
CPT/HCPCS: 36415; 80053; 80061; 84153; 85027

== ENCOUNTER 2023-04-29 14:18 | Outpatient (AMB) | payer MEDICARE, SELFPAY ==
--- NOTE | 2023-04-29 14:27 | A.OFFVIS_ITS ---
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 Accompanied by: Unknown Allergies KARL Inhibitors Allergy (Severe, Verified 04/30/23 11:14) Angioedema dextran 40 [DEXTRAN 40] Allergy (Intermediate, Verified 04/30/23 11:14) tachycardia latex [LATEX] Allergy (Mild, Verified 04/30/23 11:14) BLISTERS lisinopril [From Zestril] Allergy (Mild, Verified 04/30/23 11:14) Unknown Iodinated Contrast Media [CONTRAST,IV] Allergy (Unknown, Verified 04/30/23 11:14) UNKNOWN Medication List - Last Reconciled 04/30/23 by RAFA Perez- alprazolam 0.5 mg PO BID PRN aspirin (Adult Aspirin Regimen) 81 mg PO DAILY 30 days atorvastatin 80 mg PO BEDTIME 30 days bethanechol chloride 25 mg PO BID 90 days blood pressure test kit-large As directed blood sugar diagnostic (FreeStyle Test strips) three times per day blood-glucose meter (FreeStyle Lite Meter kit) As directed carvedilol 6.25 mg PO BID 30 days clopidogrel 75 mg PO DAILY 30 days cyanocobalamin (vitamin B-12) 1,000 mcg PO BEDTIME dapagliflozin propanediol (Farxiga) 10 mg PO DAILY 30 days dulaglutide (Trulicity) 0.75 mg (0.5 mL) subcut TU@0900 4 weeks ezetimibe (Zetia) 10 mg PO DAILY ferrous sulfate 325 mg PO DAILY finasteride (Proscar) 5 mg PO DAILY 90 days flash glucose scanning reader (NinthDecimalStyle Marleni 14 Day [place]) As directed flash glucose sensor (FreeStyle Marleni 14 Day Sensor kit) As directed folic acid 0.8 mg PO DAILY 30 days furosemide 40 mg PO DAILY PRN 30 days gabapentin 400 mg PO TID 30 days insulin aspart U-100 (Novolog FlexPen U-100 Insulin aspart) 2 - 25 units (0.02 - 0.25 mL) subcut TIDAC insulin degludec (Tresiba FlexTouch U-200 insulin) 60 units (0.3 mL) subcut BEDTIME 30 days lancets (FreeStyle Lancets) As directed midodrine 10 mg PO DAILY PRN 30 days pantoprazole 40 mg PO DAILY pen needle, diabetic (BD Gifty 2nd Gen Pen Needle) 4 times a day spironolactone 100 mg PO DAILY tamsulosin 0.4 mg PO DAILY 90 days HPI HPI Comments History of Present Illness Details [facility] 78 [facility] Cisner[facility] who was accompanied by his Myesha at today's visit. He is being seen today for a follow up of his PSA and incomplete bladder emptying. He has a past medical history of??HTN, HLD, DM, obesity, ANUJA on CPAP, CAD s/p PCI, GI bleed, iron deficiency anemia on IV iron infusions, s/p TAVR at [facility] on 06/03/22, pacemaker in place s/p complete heart block.?H/O prostate CA (pt states diagnosed about 2013) s/p radiation and 2 years of L[facility] treatment, complicated by radiation proctitis, and radiation cystitis. He was evaluated in the hospital due to gross hematuria, S/P? cysto/clot evacuation 06/18/[address] Cummins.? In discussion with the patient today he reports to be doing and feeling well. He reports since his hospitalization almost a year ago he has been doing well. He reports taking care of his who has recently fell and broke her arm. In office urinalysis results reviewed with the patient today. PVR 0 mL. Patient reports compliance with bethanechol, tamsulosin, and finasteride. He denies any urological issues or concerns at this time. He reports to be happy with current voiding parameters on these urological medications. Recent PSA results reviewed with the patient and his today. PSAs are as follows: 08/05-<0.05 05/06--<0.10 [facility] Medical History Acute lower gastrointestinal bleeding Aortic stenosis CAD (coronary artery disease) Chronic fatigue COVID-19 vaccine series completed Diabetes type 2, uncontrolled Diabetic nephropathy associated with type 2 diabetes mellitus Diabetic 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 associated with type 2 diabetes mellitus DMII (diabetes mellitus, type 2) KOEHLER (dyspnea on exertion) Dyslipidemia Esophageal varices without bleeding GERD (gastroesophageal reflux disease) History of prostate cancer HTN (hypertension) Hypertension IBS (irritable colon syndrome) Iron deficiency anemia long-term (current) use of insulin On beta kayy at home ANUJA on CPAP Polyneuropathy Prostate cancer Spinal stenosis Varices of esophagus determined by endoscopy Surgical History H/O cataract extraction History of colonoscopy History of heart artery stent History of surgery History of surgery History of transurethral resection of prostate Hx of colonoscopy Hx of endoscopy Hx of esophagogastroduodenoscopy Family History Father CVD (cardiovascular disease) Past heart attack Mother CVD (cardiovascular disease) Brain cancer Heart problem Daughter Breast cancer Sister Breast cancer Son Alive and well Family/Other Myocardial infarction Liver cancer Social History Household Members: Spouse Household Members Other:: Myesha Housing: House Are you a primary patient care provider to a significant other at home: No Do you presently have visiting nurse or other home services: No Alcohol intake: never Patient Tobacco Use Status: Never used Tobacco e-Cigarette/Vaping Use: Never Used Second Hand Smoke Exposure: No service: Yes Current occupational status: retired Cognitive needs: No Hearing needs: No Vision needs: Yes Review of Systems Const Reports as per HPI Eyes Reports no additional complaints ENT Reports no additional complaints Card Reports as per HPI Resp Reports no additional complaints GI Reports as per HPI Reports as per HPI Musc Reports no additional complaints Neuro Reports no additional complaints Psych Reports no additional complaints Endo Reports as per HPI Physical Exam Const General: cooperative, comfortable, no acute distress, well developed, alert and awake Orientation/consciousness: patient oriented x3 Limitations: no limitations HEENT Head: Yes normal to inspection, Yes normocephalic and Yes atraumatic Ears: hearing grossly normal bilaterally Neck Neck: Yes normal visual inspection and Yes trachea midline Chest Chest palpation & inspection: normal inspection of the chest Resp Effort & Inspection: normal respiratory effort and able to speak in complete sentences Cardio Rate: regular rate GI Inspection: Yes normal to inspection General: Yes no CVA tenderness Back/Spine/Pelvis Back: no CVA tenderness Neuro General: patient oriented x3 Extrem General: Yes normal to inspection Psych Appearance: grossly normal and well kempt Mental Status: mental status grossly normal Speech and movement: Normal speech and movement present and Clear speech present Affect: normal affect Attitude: cooperative Thought process: Normal thought process present Thought content: Normal thought content present Insight: Fair insight present (Psych) Judgement: Fair judgement present (Psych) Office Procedures Post Void Residual Post Residual Void Post Void Residual (PVR): 0 [id number] Void Residual by ultrasound Results AMB Urinalysis, Automated UA Leukoctes 0 Shy/uL Last Edit by [employer] on 04/29/23 14:50 UA Nitrite Last Edit by [employer] on 04/29/23 14:50 UA Urobilinogen 0.2 mg/dL Last Edit by [employer] on 04/29/23 14:50 UA Protein 0 mg/dL Last Edit by [employer] on 04/29/23 14:50 UA pH 6.0 Last Edit by [employer] on 04/29/23 14:50 UA Blood 0 Keenan/uL Last Edit by [employer] on 04/29/23 14:50 UA Specific Dawson 1.015 Last Edit by [employer] on 04/29/23 14:50 UA Ketone Last Edit by [employer] on 04/29/23 14:50 UA Bilirubin 0 mg/dL Last Edit by [employer] on 04/29/23 14:50 UA Glucose 100 mg/dL Last Edit by [employer] on 04/29/23 14:50 Results Reviewed Results Reviewed: Laboratory Last Values Urine pH (Auto) 6.0 04/29/23 14:29 Specific Dawson (Auto) 1.015 04/29/23 14:29 Urine Protein (Auto) 0 mg/dL 04/29/23 14:29 Glucose (UA)(Auto) 100 mg/dL 04/29/23 14:29 Urine Blood (Auto) 0 Keenan/uL 04/29/23 14:29 Urine Bilirubin (Auto) 0 mg/dL 04/29/23 14:29 Urine Urobilinogen (Auto) 0.2 mg/dL 04/29/23 14:29 Leukocyte Esterase (Auto) 0 Shy/uL 04/29/23 14:29 Assessment & Plan Assessment & Plan (1) Adenocarcinoma of prostate: Code(s): C61 - Malignant neoplasm of prostate (2) Incomplete bladder emptying: Code(s): R33.9 - Retention of urine, unspecified (3) BPH loc w urin obs/LUTS: Code(s): N40.1 - Benign prostatic hyperplasia with lower urinary tract symptoms Plan In office urinalysis results reviewed with the patient today; as noted above. PVR 0 mL. Recent PSA results reviewed with the patient today; as noted above. Continue bethanechol, Flomax, and finasteride as discussed and prescribed. Patient denies any urinary issues or concerns at this time. He is happy with his current voiding parameters PSA in 6 months. Follow-up in 6 months with lab to be completed prior; or sooner with any issues, concerns, and or questions. Orders: Orders Prostate Specific Antigen 6 Months C61 - Malignant neoplasm of prostate AMB Urinalysis Automated 04/29/23 Z13.9 - Encounter for screening, unspecified AMB Post Void Residual by ultrasound 04/29/23 N40.1 - Benign prostatic hyperplasia with lower urinary tract symptoms Medications: Discontinued dulaglutide FUTURE REFILLS FROM PCP. 0.75 mg (0.5 mL) subcut TU 2 mL 1RF E11.65 - Type 2 diabetes mellitus with hyperglycemia, Z79.4 - long-term (current) use of insulin insulin degludec 65 units (0.325 mL) subcut BEDTIME 9 mL 5RF E11.21 - Type 2 diabetes mellitus with diabetic nephropathy, E11.42 - Type 2 diabetes mellitus with diabetic 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, E11.65 - Type 2 diabetes mellitus with hyperglycemia, Z79.4 - long-term (current) use of insulin omeprazole 20 mg PO BID 180 caps 2RF Patient Instructions: The patient had an opportunity to ask questions regarding the treatment plan. All questions were answered. Physical exam, labs, and imaging were discussed and reviewed in detail. As well as risks, benefits, and discussion of treatment choices. No major barriers to understanding were identified. The patient expressed understanding and agreement with the above treatment plan. The patient was made aware they should contact our office by phone for worsening of their current condition, the appearance of new symptoms, or with any questions or concerns. Compliance is encouraged with any medications and follow up testing that is ordered. It is a privilege to be allowed the opportunity to participate in? your urological care.? Again, if you have any questions or concerns If you have any questions or concerns please do not hesitate to contact me. The office is [phone]. This note is constructed using voice recognition software. While every effort has been made to ensure accuracy validation engineer errors may have been included. Yours sincerely, RAFA Perez- Coding Level of Care Code Est Pt Level 3 (62507) Diagnoses Adenocarcinoma of prostate C61 Incomplete bladder emptying R33.9 BPH loc w urin obs/LUTS N40.1 CPT Codes Post Residual Void - PVR CPT Code: 33556-Kenk Void Residual by ultrasound ([id number])
== END 2023-04-29 15:10 | disposition home or self-care (01) ==
PROVIDERS: Visit Provider Nurse Practitioner Family
DX: C61 Malignant neoplasm of prostate (principal); R33.9 Retention of urine, unspecified; N40.1 Benign prostatic hyperplasia with lower urinary tract symptoms
CPT/HCPCS: 99213

== ENCOUNTER → 2023-04-29 14:18 | Outpatient (BNVA) | payer MEDICARE, SELFPAY | PROVIDERS: Visit Provider Nurse Practitioner Family | DX: C61 Malignant neoplasm of prostate (principal); R33.9 Retention of urine, unspecified; R97.20 Elevated prostate specific antigen [PSA]; N40.1 Benign prostatic hyperplasia with lower urinary tract symptoms; N13.8 Other obstructive and reflux uropathy | CPT/HCPCS: 51798; 81003; 99212 ==

== ENCOUNTER 2023-05-04 09:39 | Outpatient (REF) | payer MEDICARE, SELFPAY ==
[2023-05-04 09:52] LABS: MANUAL DIFF FLAG NO
[2023-05-04 10:15] LABS: Basophils Absolute Auto 0.1 X10*3/uL (0.0-0.2); Basophils Percent Auto 1.1 % (0-2); Eosinophils Absolute Auto 0.1 X10*3/uL (0.0-0.4); Eosinophils Percent Auto 1.6 % (0-4); Hematocrit 28.6 % (42.0-52.0); Hemoglobin 8.5 g/dl (14.0-18.0); Imm Gran Abs Auto 0.02 X10*3/uL (0.00-0.03); Imm Gran Pct Auto 0.5 % (0.0-0.4); Lymphocytes Absolute Auto 0.5 X10*3/uL (1.2-4.9); Lymphocytes Percent Auto 11.1 % (20-40); Mean Corpuscular HGB Conc 29.7 g/dl (31.0-36.0); Mean Corpuscular Volume 87.5 fL (80.0-98.0); Mean Platelet Volume 11.1 fL (9.4-12.4); Monocytes Absolute Auto 0.4 X10*3/uL (0.1-1.2); Neutrophils Absolute Auto 3.4 x10*3/uL (2.0-8.3); Neutrophils Percent Auto 76.7 % (45-73); Platelet Count 112 X10*3/uL (160-400); Red Blood Count 3.27 X10*6/uL (4.60-5.80); Red Cell Distribution Width 16.8 % (11.0-16.0); White Blood Count 4.4 X10*3/uL (4.8-10.8)
[2023-05-04 10:39] LABS: Alanine Aminotransferase 33 U/L (0-40); Albumin Level 3.7 g/dL (3.5-5.0); Alkaline Phosphatase 127 U/L (39-117); Anion Gap 13 (12-20); Aspartate Amino Transferase 35 U/L (5-37); Bilirubin Total 0.6 mg/dL (0.0-1.0); Blood Urea Nitrogen 37 mg/dL (9-16); Calcium 9.2 mg/dL (8.4-10.2); Carbon Dioxide 23 mmol/L (22-29); Chloride 111 mmol/L (96-108); Estimated Glomerular Filt Rate 39; Glucose Random 132 mg/dL (60-115); Potassium 4.6 mmol/L (3.3-5.1); Sodium 142 mmol/L (135-145); Total Protein 6.8 g/dL (6.5-8.0)
[2023-05-09 00:24] LABS: NT-proBNP 284 pg/mL (<450)
== END 2023-05-04 09:40 | disposition home or self-care (01) ==
LOC: HO.LAB 09:39
PROVIDERS: PCP Physician Assistant; Visit Provider Internal Medicine Cardiovascular Disease
DX: R06.09 Other forms of dyspnea (principal); Z95.2 Presence of prosthetic heart valve
CPT/HCPCS: 36415; 80053; 83880; 85025

== ENCOUNTER 2023-07-01 14:35 | Outpatient (REF) | payer MEDICARE, SELFPAY ==
[2023-07-01 15:00] LABS: Basophils Percent Auto 1.6 % (0-2); Eosinophils Percent Auto 1.2 % (0-4); Hematocrit 26.2 % (42.0-52.0); Hemoglobin 7.9 g/dl (14.0-18.0); Imm Gran Abs Auto 0.01 X10*3/uL (0.00-0.03); Imm Gran Pct Auto 0.4 % (0.0-0.4); Lymphocytes Absolute Auto 0.4 X10*3/uL (1.2-4.9); Lymphocytes Percent Auto 14.5 % (20-40); MANUAL DIFF FLAG SCAN; Mean Corpuscular HGB Conc 30.2 g/dl (31.0-36.0); Mean Corpuscular Hemoglobin 26.5 pg (27.0-33.0); Mean Corpuscular Volume 87.9 fL (80.0-98.0); Mean Platelet Volume 11.1 fL (9.4-12.4); Monocytes Absolute Auto 0.5 X10*3/uL (0.1-1.2); Monocytes Percent Auto 20.3 % (2-11); Neutrophils Absolute Auto 1.6 x10*3/uL (2.0-8.3); Red Blood Count 2.98 X10*6/uL (4.60-5.80); Red Cell Distribution Width 17.8 % (11.0-16.0); SCAN SMEAR FLAG 1; White Blood Count 2.6 X10*3/uL (4.8-10.8)
[2023-07-01 15:01] LABS: Platelet Count 82 X10*3/uL (160-400)
[2023-07-01 15:40] LABS: Alanine Aminotransferase 44 U/L (0-40); Albumin Level 3.3 g/dL (3.5-5.0); Alkaline Phosphatase 118 U/L (39-117); Anion Gap 12 (12-20); Aspartate Amino Transferase 50 U/L (5-37); Bilirubin Total 0.9 mg/dL (0.0-1.0); Blood Urea Nitrogen 23 mg/dL (9-16); Calcium 8.7 mg/dL (8.4-10.2); Carbon Dioxide 18 mmol/L (22-29); Chloride 115 mmol/L (96-108); Estimated Glomerular Filt Rate 52; Glucose Random 138 mg/dL (60-115); Potassium 4.7 mmol/L (3.3-5.1); Sodium 140 mmol/L (135-145); Total Protein 6.1 g/dL (6.5-8.0)
[2023-07-01 16:03] LABS: SLIDE REVIEW VERIFIED
== END 2023-07-01 14:36 | disposition home or self-care (01) ==
LOC: HO.LAB 14:35
PROVIDERS: PCP Physician Assistant; Visit Provider Internal Medicine Cardiovascular Disease
DX: R06.09 Other forms of dyspnea (principal); Z95.2 Presence of prosthetic heart valve
CPT/HCPCS: 36415; 80053; 85025

== ENCOUNTER 2023-07-10 23:44 | Emergency (ER) | payer MEDICARE, SELFPAY ==
--- NOTE | ~2023-07-10 | CT_ITS ---
EXAMINATION: NONCONTRAST HEAD CT NONCONTRAST CERVICAL SPINE CT INDICATION INFORMATION: Fall COMPARISON: 01/08/2023 TECHNIQUE: Separate noncontrast CT examinations of the head and cervical spine were performed. Coronal head CT images and coronal and sagittal cervical spine images were created at the technologist workstation. DLP: 993 mGy-cm DOSE LOWERING TECHNIQUES: This CT examination was performed using dose optimization techniques as appropriate, variously including the following: - Automated exposure control - Adjustment of mA and/or kV according to patient size (this includes techniques or standardized protocols for targeted exams were dose is matched to indication/reason for exam; i.e. extremities or head) - Use of iterative reconstruction technique FINDINGS: Head: There is no evidence of acute intracranial hemorrhage or territorial infarction. No abnormal mass-effect or midline shift is seen. [place] to white matter differentiation is well preserved. No extra-axial fluid collections are identified. The ventricles are normal in size. There is mild periventricular white matter hypoattenuation consistent with chronic small vessel ischemic disease. Mild volume loss is noted. Redemonstrated extra-axial calcification along the high left frontal lobe, which may represent a meningioma. No acute osseous findings. The mastoid air cells and visualized portions of the paranasal sinuses are well-aerated. Cervical spine: There is kyphosis at C5-C6 with partial loss of height of the C5 vertebral body and complete loss of the disc space, new/worsened from prior. There is otherwise anatomic alignment of the vertebral bodies and posterior elements. Vertebral body heights are maintained. Endplate osteophytes are present in the lower cervical spine. There is degenerative change at the atlantodens articulation. No evidence of acute fracture. No prevertebral soft tissue swelling. Visualized thyroid gland is unremarkable. CT/CT cervical spine wo IV con IMPRESSION: HEAD: No acute intracranial findings. CERVICAL SPINE: No acute findings identified. Kyphosis at C5-C6 with partial loss of height of the C5 vertebral body and complete loss of the disc space, new/worsened from 01/08/2023.
[2023-07-10 23:48] VITALS: BP 120/52; PULSE 98; O2SAT 93
[2023-07-10 23:50] VITALS: BP 122/38; PULSE 68; RESP 21; TEMP 36.5; O2SAT 90; BMI 32.0
--- NOTE | 2023-07-11 00:17 | ED.FALL ---
HPI - Fall General Chief Complaint: Fall Stated Complaint: Fall, Lethargic Time Seen by Provider: 07/11/23 00:04 Source: patient, family and EMS Mode of arrival: EMS Limitations: no limitations History of Present Illness HPI Narrative: Patient comes to the emergency room via EMS from home. According to the patient, patient's and EMS, the patient took a tablet of Tylenol with codeine earlier today for his chronic back pain. Patient states that he was trying to get comfortable in bed, and accidentally rolled out of bed and landed on the ground. Patient states that he did not hit his head or lost consciousness. However, patient states that he was very somnolent and does not remember if this is quite true. Patient complaining of nosebleed. Patient states that he does not have headache, very mild neck discomfort. Related Data Home Medications Medication Instructions Recorded Confirmed cyanocobalamin (vitamin B-12) 500 1,000 mcg PO BEDTIME 12/29/22 04/08/23 mcg tablet ferrous sulfate 325 mg (65 mg 325 mg PO DAILY 04/29/23 iron) tablet,delayed release Previous Rx's Medication Instructions Recorded blood pressure test kit-large #1 ea 11/21/21 pen needle, diabetic 32 gauge x #150 ea 05/08/22 (BD Gifty 2nd Gen Pen Needle) blood-glucose meter (FreeStyle #1 ea 10/03/22 Lite Meter kit) flash glucose scanning reader #1 ea 10/03/22 (FreeStyle Marleni 14 Day [place]) flash glucose sensor (FreeStyle #2 ea 10/03/22 Marleni 14 Day Sensor kit) bethanechol chloride 25 mg tablet 25 mg PO BID 90 days #180 tabs 12/30/22 blood sugar diagnostic (FreeStyle #100 ea 02/24/23 Test strips) aspirin 81 mg tablet,delayed 81 mg PO DAILY 30 days #30 tabs 03/11/23 release (Adult Aspirin Regimen) atorvastatin 80 mg tablet 80 mg PO BEDTIME 30 days #30 tabs 03/11/23 carvedilol 6.25 mg tablet 6.25 mg PO BID 30 days #60 tabs 03/11/23 clopidogrel 75 mg tablet 75 mg PO DAILY 30 days #30 tabs 03/11/23 dapagliflozin propanediol 10 mg 10 mg PO DAILY 30 days #30 tabs 03/11/23 tablet (Farxiga) dulaglutide 0.75 mg/0.5 mL 0.75 mg (0.5 mL) subcut TU@0900 4 03/11/23 subcutaneous pen injector weeks #2 mL (Trulicity) ezetimibe 10 mg tablet (Zetia) 10 mg PO DAILY #30 tabs 03/11/23 finasteride 5 mg tablet (Proscar) 5 mg PO DAILY 90 days #90 tabs 03/11/23 folic acid 800 mcg tablet 0.8 mg PO DAILY 30 days #30 tabs 03/11/23 furosemide 40 mg tablet 40 mg PO DAILY PRN edema 30 days 03/11/23 #30 tabs gabapentin 400 mg capsule 400 mg PO TID 30 days #90 caps 03/11/23 insulin aspart U-100 100 unit/mL 2 - 25 unit (0.02 - 0.25 mL) 03/11/23 (3 mL) subcutaneous pen (Novolog subcut TIDAC #15 mL FlexPen U-100 Insulin aspart) midodrine 10 mg tablet 10 mg PO DAILY PRN low blood 03/11/23 pressure 30 days #60 tabs pantoprazole 40 mg tablet,delayed 40 mg PO DAILY #30 tabs 03/11/23 release spironolactone 100 mg tablet 100 mg PO DAILY 90 days #90 tabs 05/25/23 tamsulosin 0.4 mg capsule 0.4 mg PO DAILY 90 days #90 caps 06/11/23 alprazolam 0.5 mg tablet 0.5 mg PO BID PRN Anxiety 30 days 06/22/23 #60 tabs lancets 28 gauge (FreeStyle #100 ea 06/26/23 Lancets) insulin degludec 200 unit/mL (3 60 unit (0.3 mL) subcut BEDTIME 30 07/06/23 mL) subcutaneous pen (Tresiba days #9 mL FlexTouch U-200 insulin) Allergies Allergy/AdvReac Type Severity Reaction Status Date / Time KARL Inhibitors Allergy Severe Angioedema Verified 07/10/23 23:50 dextran 40 [DEXTRAN 40] Allergy Intermediate tachycardia Verified 07/10/23 23:50 latex [LATEX] Allergy Mild BLISTERS Verified 07/10/23 23:50 lisinopril [From Zestril] Allergy Mild Unknown Verified 07/10/23 23:50 Iodinated Contrast Media Allergy Unknown UNKNOWN Verified 07/10/23 23:50 [CONTRAST,IV] Review of Systems Review of Systems: Constitutional : No Weight loss, No Fever, No Chills, No Night Sweats, No Fatigue, No Malaise ENT/Mouth : Complaining of epistaxis from the right nostril, No Hearing loss, No Ear Pain, No Nasal Congestion, No Sinus Pain, No Hoarseness, No sore throat, No Rhinorrhea, No Swallowing Difficulty Eyes: No Eye Pain, No Swelling, No Redness, No Foreign Body, No Discharge, No Vision Changes Cardiovascular : No Chest Pain, No SOB, No Dyspnea on Exertion, No Orthopnea, No Edema, No Palpitations Respiratory : No Cough, No Sputum, No Wheezing, No Smoke Exposure, No Dyspnea Gastrointestinal : No Nausea, No Vomiting, No Diarrhea, No Constipation, No abdominal Pain, No Hematochezia, No Melena Genitourinary : no irregular bleeding, No Dysuria, No Urinary Frequency, No Hematuria, No Urinary Incontinence, No Urgency, No Flank Pain, No Urinary Flow Changes, No Hesitancy Musculoskeletal : Complaining of chronic lower back pain, No joint pain, No Myalgias, No Joint Swelling Skin : No Skin Lesions, No rash Neuro : No Weakness, No Numbness, No Paresthesias, No Loss of Consciousness, No Dizziness, No Headache Psych : No Anxiety/Panic, No Depression, No SI/HI/AH/VH, No Social Issues, Heme/Lymph: No Bruising, No Bleeding,No Lymphadenopathy Endocrine : No Polyuria, No Polydipsia, No Temperature Intolerance PMFSH Past Medical History Medical History History of prostate cancer Acute lower gastrointestinal bleeding COVID-19 vaccine series completed Hypertension Dyslipidemia Diabetic nephropathy associated with type 2 diabetes mellitus Diabetic 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 associated with type 2 diabetes mellitus 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 Diabetes type 2, uncontrolled Varices of esophagus determined by endoscopy Esophageal varices without bleeding KOEHLER (dyspnea on exertion) Chronic fatigue Iron deficiency anemia CAD (coronary artery disease) ANUJA on CPAP Prostate cancer Spinal stenosis On beta kayy at home IBS (irritable colon syndrome) Aortic stenosis HTN (hypertension) DMII (diabetes mellitus, type 2) Polyneuropathy GERD (gastroesophageal reflux disease) Surgical History H/O cataract extraction History of colonoscopy History of heart artery stent History of surgery History of surgery History of transurethral resection of prostate Hx of colonoscopy Hx of endoscopy Hx of esophagogastroduodenoscopy Family History Family History Father CVD (cardiovascular disease) Past heart attack Mother CVD (cardiovascular disease) Brain cancer Heart problem Daughter Breast cancer Sister Breast cancer Son Alive and well Family/Other Myocardial infarction Liver cancer Social History Social History Household Members: Spouse Household Members Other:: Myesha Housing: House Are you a primary care process manager to a significant other at home: No Do you presently have visiting nurse or other home services: No Alcohol intake: never Patient Tobacco Use Status: Never used Tobacco e-Cigarette/Vaping Use: Never Used Second Hand Smoke Exposure: No Advance Directives: No Advance Directives Information Provided: No service: Yes Current occupational status: retired Cognitive needs: No Hearing needs: No Vision needs: Yes Physical Exam Vital Signs: Vital Signs: Last Vital Signs Temp 98.2 F 07/11/23 01:38 Pulse 70 07/11/23 01:38 Resp 15 07/11/23 01:38 BP 109/55 L 07/11/23 01:38 Pulse Ox 98 07/11/23 01:38 O2 Del Method Nasal Cannula 07/11/23 01:38 O2 Flow Rate 2 07/11/23 01:38 BMI result Body Mass Index 32.0 Const: Other: Appearance: Alert. Oriented X3. No acute distress. Somnolent, but awake, able to talk coherently Eyes: Pupils equal, round and reactive to light. ENT: Pharynx normal. Epistaxis from the right nostril Neck: Normal inspection. Neck supple. No lymph nodes noted. No crepitus CVS: Normal heart rate and rhythm. Pulses normal. Normal S1 and S2 Respiratory: No respiratory distress. Breath sounds normal. No Wheezing. No rales Abdomen: Soft and nontender. No rigidity. No distention. Skin: Skin warm and dry. Normal skin color. Normal skin turgor. Extremities: No lower extremity edema. No Lacerations. No Rash Neuro: Oriented X 3. No motor deficit. No sensory deficit. Moving all extremities. No slurred speech. CN 2 through 12 grossly intact Psych: calm, cooperative, normal affect Course Course Course Narrative: -patient's right nostril was sprayed with Afrin for to control epistaxis -head CT and cervical spine CT pending Medications Administered Discontinued Medications Generic Name Dose Route Start Last Admin Trade Name Freq PRN Reason Stop Dose Admin Oxymetazoline HCl 2 spray 07/11/23 00:12 07/11/23 00:26 Oxymetazoline Hcl 0.05 % Nasal 15 Ml [place] NOSTRIL-B 07/11/23 00:13 2 spray ONCE ONE Administration Medical Decision Making Medical Decision Making [facility] Narrative: -when the position of head CT, no intracranial bleed. -epistaxis has stopped Differential Diagnosis Differential Diagnoses: The differential diagnosis associated with the presentation includes (Intracranial bleed, contusion, concussion, epistaxis) Admission/Observation Consideration of admission/observation: Escalation of care including admission/observation considered (Given the patient's history on arrival, patient was considered) Independent Interpretation I performed an independent interpretation of an: CT Scan Radiology Impression Discussion of test interpretation with radiology: I have reviewed the radiologist's reading. Radiologist Impression: FINDINGS: Head: There is no evidence of acute intracranial hemorrhage or territorial infarction. No abnormal mass-effect or midline shift is seen. [place] to white matter differentiation is well preserved. No extra-axial fluid collections are identified. The ventricles are normal in size. There is mild periventricular white matter hypoattenuation consistent with chronic small vessel ischemic disease. Mild volume loss is noted. Redemonstrated extra-axial calcification along the high left frontal lobe, which may represent a meningioma. No acute osseous findings. The mastoid air cells and visualized portions of the paranasal sinuses are well-aerated. Cervical spine: There is kyphosis at C5-C6 with partial loss of height of the C5 vertebral body and complete loss of the disc space, new/worsened from prior. There is otherwise anatomic alignment of the vertebral bodies and posterior elements. Vertebral body heights are maintained. Endplate osteophytes are present in the lower cervical spine. There is degenerative change at the atlantodens articulation. No evidence of acute fracture. No prevertebral soft tissue swelling. Visualized thyroid gland is unremarkable. CT/CT cervical spine wo IV con IMPRESSION: HEAD: No acute intracranial findings. CERVICAL SPINE: No acute findings identified. Kyphosis at C5-C6 with partial loss of height of the C5 vertebral body and complete loss of the disc space, new/worsened from 01/08/2023. Independent Historian Clinical information obtained from an independent historian. History obtained from or confirmed by: Spouse Critical Care Time Critical Care Time Critical Care Time: Yes Total Critical Care Time: 30 Attestation: FINDINGS: Head: There is no evidence of acute intracranial hemorrhage or territorial infarction. No abnormal mass-effect or midline shift is seen. [place] to white matter differentiation is well preserved. No extra-axial fluid collections are identified. The ventricles are normal in size. There is mild periventricular white matter hypoattenuation consistent with chronic small vessel ischemic disease. Mild volume loss is noted. Redemonstrated extra-axial calcification along the high left frontal lobe, which may represent a meningioma. No acute osseous findings. The mastoid air cells and visualized portions of the paranasal sinuses are well-aerated. Cervical spine: There is kyphosis at C5-C6 with partial loss of height of the C5 vertebral body and complete loss of the disc space, new/worsened from prior. There is otherwise anatomic alignment of the vertebral bodies and posterior elements. Vertebral body heights are maintained. Endplate osteophytes are present in the lower cervical spine. There is degenerative change at the atlantodens articulation. No evidence of acute fracture. No prevertebral soft tissue swelling. Visualized thyroid gland is unremarkable. CT/CT cervical spine wo IV con IMPRESSION: HEAD: No acute intracranial findings. CERVICAL SPINE: No acute findings identified. Kyphosis at C5-C6 with partial loss of height of the C5 vertebral body and complete loss of the disc space, new/worsened from 01/08/2023. Discharge Plan Discharge Clinical Impression: Fall, Epistaxis Patient Disposition: Home, Self-Care Instructions: Nosebleed (ED) Additional Instructions: Please follow-up with your primary care physician tomorrow. If you have any worsening or new symptoms, please return to the emergency room or call 911 Prescriptions: No Action (DME) pen needle, diabetic [BD Gifty 2nd Gen Pen Needle] 32 gauge x 5/32 needle See Rx Instructions .MEDSUPPLY Qty: 150 5RF Rx Instructions: 4 times a day (DME) FreeStyle Marleni 14 Day [place] Misc See Rx Instructions .Route Qty: 1 0RF Rx Instructions: As directed (DME) FreeStyle Marleni 14 Day Sensor Kit See Rx Instructions .Route Qty: 2 2RF Rx Instructions: As directed (DME) blood-glucose meter [FreeStyle Lite Meter] Kit See Rx Instructions .Route Qty: 1 0RF Rx Instructions: As directed bethanechol chloride 25 mg tablet 25 mg PO BID 90 Days Qty: 180 1RF (DME) FreeStyle Test Strip See Rx Instructions .Route Qty: 100 3RF Rx Instructions: three times per day spironolactone 100 mg tablet 100 mg PO DAILY 90 Days Qty: 90 1RF tamsulosin 0.4 mg capsule 0.4 mg PO DAILY 90 Days Qty: 90 1RF alprazolam 0.5 mg tablet 0.5 mg PO BID PRN (Reason: Anxiety) 30 Days Qty: 60 2RF (DME) lancets [FreeStyle Lancets] 28 gauge misc See Rx Instructions .Route Qty: 100 6RF Rx Instructions: As directed three times per day insulin degludec [Tresiba FlexTouch U-200] 200 unit/mL (3 mL) insulin pen 60 unit subcut BEDTIME 30 Days Qty: 9 3RF cyanocobalamin (vitamin B-12) 500 mcg Tablet 1,000 mcg PO BEDTIME (DME) blood pressure test kit-large Kit See Rx Instructions .Route Qty: 1 0RF Rx Instructions: As directed Trulicity 0.75 mg/0.5 mL pen injector 0.75 mg subcut TU@0900 28 Days Qty: 2 3RF Rx Instructions: FUTURE REFILLS FROM PCP. insulin aspart U-100 [Novolog FlexPen U-100 Insulin] 100 unit/mL (3 mL) insulin pen 2 - 25 unit subcut TIDAC Qty: 15 3RF finasteride [Proscar] 5 mg tablet 5 mg PO DAILY 90 Days Qty: 90 1RF furosemide 40 mg tablet 40 mg PO DAILY PRN (Reason: edema) 30 Days Qty: 30 3RF carvedilol 6.25 mg tablet 6.25 mg PO BID 30 Days Qty: 60 3RF Rx Instructions: must administer with a meal/food clopidogrel 75 mg tablet 75 mg PO DAILY 30 Days Qty: 30 3RF ezetimibe [Zetia] 10 mg tablet 10 mg PO DAILY Qty: 30 3RF midodrine 10 mg tablet 10 mg PO DAILY PRN (Reason: low blood pressure) 30 Days Qty: 60 3RF Rx Instructions: do not give last dose of day after 6PM or within 4 hrs of bedtime pantoprazole 40 mg tablet,delayed release (DR/EC) 40 mg PO DAILY Qty: 30 3RF Farxiga 10 mg tablet 10 mg PO DAILY 30 Days Qty: 30 3RF gabapentin 400 mg capsule 400 mg PO TID 30 Days Qty: 90 3RF atorvastatin 80 mg tablet 80 mg PO BEDTIME 30 Days Qty: 30 3RF aspirin [Adult Aspirin Regimen] 81 mg tablet,delayed release (DR/EC) 81 mg PO DAILY 30 Days Qty: 30 3RF folic acid 800 mcg tablet 0.8 mg PO DAILY 30 Days Qty: 30 3RF ferrous sulfate 325 mg (65 mg iron) tablet,delayed release (DR/EC) 325 mg PO DAILY
[2023-07-11] MEDS: Oxymetazoline HCl 0.05 % Nasal 15 ML SPRAY 2 SPRAY NOSTRIL-B (00:26)
--- NOTE | 2023-07-11 00:30 | PC.NURSE ---
this rn assumed care of pt. pt BIBA from home after a fall out of bed. pt reports being down for 20 minutes and denies head strike and LOC. pt reports he does take blood thinners. pt reports taking tylenol with codeine which made him feel loopy prior to the fall. ems reports soda can sized pool of blood under pt, pt has visible right nare bleed at time of arrival, bleeding controlled. pt denies pain at this time. pt a&Ox4, neuro in tact.
--- NOTE | 2023-07-11 01:36 | PC.NURSE ---
pt sleeping at this time, o2 sat drop to 86%, pt reports having sleep apnea. pt placed on 2 L nasal cannula sating between 93-96.
[2023-07-11 01:38] VITALS: BP 109/55; PULSE 70; RESP 15; TEMP 36.8; O2SAT 98
== END 2023-07-11 02:01 | disposition home or self-care (01) ==
PROVIDERS: Emergency Provider Emergency Medicine; PCP Physician Assistant
DX: R04.0 Epistaxis (principal); Z91.81 History of falling; E11.9 Type 2 diabetes mellitus without complications; C61 Malignant neoplasm of prostate; D64.9 Anemia, unspecified; K74.60 Unspecified cirrhosis of liver; Z95.0 Presence of cardiac pacemaker; Z95.2 Presence of prosthetic heart valve; Z79.4 Long term (current) use of insulin; Z79.82 Long term (current) use of aspirin; Z79.899 Other long term (current) drug therapy
CPT/HCPCS: 70450; 72125; 99284

== ENCOUNTER 2023-08-04 11:10 | Emergency (ER) | payer MEDICARE, SELFPAY ==
--- NOTE | ~2023-08-04 | CT_ITS ---
CT HEAD WITHOUT IV CONTRAST CT CERVICAL SPINE WITHOUT IV CONTRAST INDICATION: Fall on blood thinners with head strike. COMPARISON: None available. TECHNIQUE: Multidetector CT acquisitions of the head and cervical spine were obtained without IV contrast. Multiplanar reformats were acquired and utilized for image interpretation. This CT examination was performed using dose optimization techniques as appropriate, variously including the following: *Automated exposure control *Adjustment of mA and/or kV according to patient size (this includes techniques or standardized protocols for targeted exams where dose is matched to indication/reason for exam; i.e. extremities or head) *Use of iterative reconstruction technique FINDINGS: HEAD: There is a stable 1.5 cm calcified extra-axial nodule along the high anterior left frontal convexity that may again reflect a meningioma. There is chronic microangiopathy. There is no intracranial hemorrhage, hydrocephalus, extra-axial surface collection, midline shift, or other herniation pattern. [place] to white matter differentiation is diffusely maintained without evidence of an evolved acute territorial infarct. The basilar cisterns are preserved. Anterior left frontal scalp swelling. No acute osseous abnormality. The paranasal sinuses and the mastoid air cells are well aerated. CERVICAL SPINE: Stable reversal of the cervical lordosis. Chronic vertebral body height loss at C5 and interbody arthrodesis at C5-C6 with an associated kyphosis. Multilevel endplate osteophytes. There are no acute fractures and there are no acute subluxations. Chronic posterior facet widening at C5-C6 is stable. Multilevel facet arthropathy. Hypertrophic degenerative changes involving the atlantodental interval. Atherosclerotic calcification involving the carotid bifurcations bilaterally. There is no prevertebral soft tissue swelling. Lung apices are clear. CT/CT cervical spine wo IV con IMPRESSION: - No acute intracranial abnormality. Anterior left frontal scalp swelling. There is a stable 1.5 cm calcified extra-axial nodule along the high anterior left frontal convexity that may again reflect a meningioma. - No acute osseous abnormality within the cervical spine. Chronic vertebral body height loss at C5 and interbody arthrodesis at C5-C6 with an associated kyphosis contributing to central canal stenosis at the C5-C6 level. Multilevel cervical spondylosis.
[2023-08-04 11:19] VITALS: BP 158/66; PULSE 88; O2SAT 98
[2023-08-04 11:27] VITALS: BP 131/48; PULSE 74; RESP 16; TEMP 36.6; O2SAT 98; BMI 32.1
[2023-08-04] MEDS: Acetaminophen 325 MG TABLET 650 MG PO (12:23)
--- NOTE | 2023-08-04 14:13 | ED.GENADULT ---
HPI - General Adult General Chief complaint: Fall Stated complaint: LAC TO EYEBROW S/P FALL,+THINNERS/[facility] Time Seen by Provider: 08/04/23 14:03 History of Present Illness HPI narrative: The patient is an 78-year-old male who was brought to the hospital after falling. He apparently had driven from his home to stop and shop. There he got a chicken that he was going to deliver to a friend who lives across the street. He went across the street but then fell and struck his head. He was walking along when he fell. He tripped on the lawn and struck his head. An ambulance was called. He was placed in a cervical collar and brought to the hospital. The patient is currently receiving IV antibiotics at home. He has apparently been seen at [facility]. He is being treated for endocarditis. The patient has a history of chronic liver disease. Related Data Home Medications Medication Instructions Recorded Confirmed cyanocobalamin (vitamin B-12) 500 1,000 mcg PO BEDTIME 12/29/22 04/08/23 mcg tablet ferrous sulfate 325 mg (65 mg 325 mg PO DAILY 04/29/23 iron) tablet,delayed release Previous Rx's Medication Instructions Recorded blood pressure test kit-large #1 ea 11/21/21 pen needle, diabetic 32 gauge x #150 ea 05/08/22 (BD Gifty 2nd Gen Pen Needle) blood-glucose meter (FreeStyle #1 ea 10/03/22 Lite Meter kit) flash glucose scanning reader #1 ea 10/03/22 (FreeStyle Marleni 14 Day [place]) flash glucose sensor (FreeStyle #2 ea 10/03/22 Marleni 14 Day Sensor kit) bethanechol chloride 25 mg tablet 25 mg PO BID 90 days #180 tabs 12/30/22 blood sugar diagnostic (FreeStyle #100 ea 02/24/23 Test strips) aspirin 81 mg tablet,delayed 81 mg PO DAILY 30 days #30 tabs 03/11/23 release (Adult Aspirin Regimen) atorvastatin 80 mg tablet 80 mg PO BEDTIME 30 days #30 tabs 03/11/23 carvedilol 6.25 mg tablet 6.25 mg PO BID 30 days #60 tabs 03/11/23 clopidogrel 75 mg tablet 75 mg PO DAILY 30 days #30 tabs 03/11/23 dapagliflozin propanediol 10 mg 10 mg PO DAILY 30 days #30 tabs 03/11/23 tablet (Farxiga) dulaglutide 0.75 mg/0.5 mL 0.75 mg (0.5 mL) subcut TU@0900 4 03/11/23 subcutaneous pen injector weeks #2 mL (Trulicity) ezetimibe 10 mg tablet (Zetia) 10 mg PO DAILY #30 tabs 03/11/23 finasteride 5 mg tablet (Proscar) 5 mg PO DAILY 90 days #90 tabs 03/11/23 furosemide 40 mg tablet 40 mg PO DAILY PRN edema 30 days 03/11/23 #30 tabs gabapentin 400 mg capsule 400 mg PO TID 30 days #90 caps 03/11/23 insulin aspart U-100 100 unit/mL 2 - 25 unit (0.02 - 0.25 mL) 03/11/23 (3 mL) subcutaneous pen (Novolog subcut TIDAC #15 mL FlexPen U-100 Insulin aspart) midodrine 10 mg tablet 10 mg PO DAILY PRN low blood 03/11/23 pressure 30 days #60 tabs pantoprazole 40 mg tablet,delayed 40 mg PO DAILY #30 tabs 03/11/23 release spironolactone 100 mg tablet 100 mg PO DAILY 90 days #90 tabs 05/25/23 tamsulosin 0.4 mg capsule 0.4 mg PO DAILY 90 days #90 caps 06/11/23 alprazolam 0.5 mg tablet 0.5 mg PO BID PRN Anxiety 30 days 06/22/23 #60 tabs lancets 28 gauge (FreeStyle #100 ea 06/26/23 Lancets) insulin degludec 200 unit/mL (3 60 unit (0.3 mL) subcut BEDTIME 30 07/06/23 mL) subcutaneous pen (Tresiba days #9 mL FlexTouch U-200 insulin) folic acid 800 mcg tablet 0.8 mg PO DAILY 30 days #30 tabs 07/30/23 Allergies Allergy/AdvReac Type Severity Reaction Status Date / Time KARL Inhibitors Allergy Severe Angioedema Verified 07/10/23 23:50 dextran 40 [DEXTRAN 40] Allergy Intermediate tachycardia Verified 07/10/23 23:50 latex [LATEX] Allergy Mild BLISTERS Verified 07/10/23 23:50 lisinopril [From Zestril] Allergy Mild Unknown Verified 07/10/23 23:50 Iodinated Contrast Media Allergy Unknown UNKNOWN Verified 07/10/23 23:50 [CONTRAST,IV] Review of Systems Review of Systems: Yes all other systems are reviewed and are negative [facility] Past Medical History Medical History History of prostate cancer Acute lower gastrointestinal bleeding COVID-19 vaccine series completed Hypertension Dyslipidemia Diabetic nephropathy associated with type 2 diabetes mellitus Diabetic 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 associated with type 2 diabetes mellitus FPC (current) use of insulin Diabetes type 2, uncontrolled Varices of esophagus determined by endoscopy Esophageal varices without bleeding KOEHLER (dyspnea on exertion) Chronic fatigue Iron deficiency anemia CAD (coronary artery disease) ANUJA on CPAP Prostate cancer Spinal stenosis On beta kayy at home IBS (irritable colon syndrome) Aortic stenosis HTN (hypertension) DMII (diabetes mellitus, type 2) Polyneuropathy GERD (gastroesophageal reflux disease) Surgical History H/O cataract extraction History of colonoscopy History of heart artery stent History of surgery History of surgery History of transurethral resection of prostate Hx of colonoscopy Hx of endoscopy Hx of esophagogastroduodenoscopy Family History Family History Father CVD (cardiovascular disease) Past heart attack Mother CVD (cardiovascular disease) Brain cancer Heart problem Daughter Breast cancer Sister Breast cancer Son Alive and well Family/Other Myocardial infarction Liver cancer Social History Household Members: Spouse Household Members Other:: Myesha Housing: House Are you a primary primary health care nurse to a significant other at home: No Do you presently have visiting nurse or other home services: No Alcohol intake: never Patient Tobacco Use Status: Never used Tobacco e-Cigarette/Vaping Use: Never Used Second Hand Smoke Exposure: No Advance Directives: No service: Yes Current occupational status: retired Cognitive needs: No Hearing needs: No Vision needs: Yes Physical Exam ED Vital Signs: Vital Signs - 24 hr 08/04/23 11:27 08/04/23 14:24 Temperature 97.8 F 97.9 F Pulse Rate 74 66 Respiratory Rate 16 16 Blood Pressure 131/48 L 140/59 H Pulse Oximetry 98 100 Oxygen Delivery Method Room Air Room Air BMI result Body Mass Index 32.1 Const Other: The patient is awake and alert. He seems to be a somewhat chronically ill 78-year-old who had a large bandage across his forehead. He did not seem in obvious acute distress. HENMT Other: The patient has a large laceration to the right forehead above the eyebrow. This is an irregular, Y shaped laceration. The overall length is about 8 cm. No raccoon eyes, no johnson sign. There is a small abrasion to the skin above the right upper lip. This is not a full-thickness injury. There is no suturable component to this injury. No intraoral injury. Eyes Other: Pupils are round and equal, no signs of trauma to the eyes Neck Other: There is some mild posterior C-spine tenderness. No gross deformity. Resp Other: Breath sounds are clear bilaterally. No signs of respiratory distress. Cardio Other: The patient has a regular rate and rhythm GI Other: Abdomen is soft nontender Skin Other: The patient has an 8 cm irregular laceration above the right eyebrow. He has an abrasion to the skin just above the right upper lip. Neuro Other: The patient is awake and alert. He is oriented and appropriate. Speech is clear. Moves his extremities symmetrically. Seems grossly neurologically intact. Extrem Other: No injuries to the extremities Medications Administered Discontinued Medications Generic Name Dose Route Start Last Admin Trade Name Ricardoq PRN Reason Stop Dose Admin Acetaminophen 650 mg 08/04/23 12:18 08/04/23 12:23 Acetaminophen 325 Mg Tablet PO 08/04/23 12:19 650 mg ONCE ONE Administration Carvedilol 6.25 mg 08/04/23 14:40 08/04/23 15:21 Carvedilol 6.25 Mg Tablet PO 08/04/23 14:41 6.25 mg ONCE ONE Administration Protocol Diphtheria/Tetanus/Acell Pertussis 0.5 ml 08/04/23 15:23 08/04/23 15:55 Diphth,Pertus(Acell),Tet Adult 0.5 Ml Syringe IM 08/04/23 15:24 0.5 ml .ONCE ONE Administration Lidocaine/Epinephrine 10 ml 08/04/23 14:45 08/04/23 14:59 Lidocaine Hcl 1%/Epi 1:100,000 10 Ml Vial INFILTRATI 08/04/23 14:46 10 ml ONCE ONE Administration Procedures Laceration Right forehead: Site: face Side (If applicable): right Size (cm): 8 Description: stellate and irregular Depth: simple, single layer Local Anesthetic: lidocaine 2% and with epi Amount of anesthesia used (mL): 7 Pre-repair: wound explored and irrigated extensively Skin layer closed with: nylon Size (cm): 5-0 Number of sutures: 8 Technique: simple, interrupted Medical Decision Making Medical Decision Making MDM Narrative: The patient is an 78-year-old male who comes to the emergency room after having a mechanical fall while walking outside. He seems to have tripped. He has a large laceration above the right eyebrow. He has a negative head CT and a negative cervical spine CT. The patient's wound above the right eyebrow required suturing. Patient's wound was prepped and anesthetized and cleaned. It was closed with a total of 8 simple interrupted stitches using 5 0 nylon. Adequate wound edge approximation was achieved. The patient was subsequently given a trial of ambulation. He did well. Think he may be discharged to get his sutures removed at his PCPs office in a week. Discharge Plan Discharge Clinical Impression: Fall, Laceration of right eyebrow, Abrasion of face Patient Disposition: Home, Self-Care Instructions: Facial Laceration (ED) Additional Instructions: You had a fall in which you hit your head. A CT scan of your head and of the bones of your neck do not show any concerning injury. You had a large laceration to the skin of your forehead above the right eyebrow. This was closed with 8 sutures. The sutures should be removed in 1 week. This may be done by your primary care doctor's office or at an urgent care. Please keep the sutures clean, dry, and covered. You may have some oozing of blood from the wound. Please change the Band-Aids as needed. For the 1st 2 days you should apply bacitracin to the wound with Band-Aid changes. You were given a dose of your regular heart medication, carvedilol. You received your regular morning dose of 6.25 mg of carvedilol here in the emergency room today. Please make sure you do not repeat this dose when you get home. Otherwise please continue your regular medications. Please contact your regular doctors office to arrange follow-up appointment in 1 week for suture removal. If you cannot get into youyr regular doctor's office you should go to an urgent care center for suture removal. Return to the emergency room is significantly worse in any way. Prescriptions: No Action (DME) pen needle, diabetic [BD Gifty 2nd Gen Pen Needle] 32 gauge x 5/32 needle See Rx Instructions .MEDSUPPLY Qty: 150 5RF Rx Instructions: 4 times a day (DME) FreeStyle Marleni 14 Day [place] Misc See Rx Instructions .Route Qty: 1 0RF Rx Instructions: As directed (DME) FreeStyle Marleni 14 Day Sensor Kit See Rx Instructions .Route Qty: 2 2RF Rx Instructions: As directed (DME) blood-glucose meter [FreeStyle Lite Meter] Kit See Rx Instructions .Route Qty: 1 0RF Rx Instructions: As directed bethanechol chloride 25 mg tablet 25 mg PO BID 90 Days Qty: 180 1RF (DME) FreeStyle Test Strip See Rx Instructions .Route Qty: 100 3RF Rx Instructions: three times per day spironolactone 100 mg tablet 100 mg PO DAILY 90 Days Qty: 90 1RF tamsulosin 0.4 mg capsule 0.4 mg PO DAILY 90 Days Qty: 90 1RF alprazolam 0.5 mg tablet 0.5 mg PO BID PRN (Reason: Anxiety) 30 Days Qty: 60 2RF (DME) lancets [FreeStyle Lancets] 28 gauge misc See Rx Instructions .Route Qty: 100 6RF Rx Instructions: As directed three times per day insulin degludec [Tresiba FlexTouch U-200] 200 unit/mL (3 mL) insulin pen 60 unit subcut BEDTIME 30 Days Qty: 9 3RF folic acid 800 mcg tablet 0.8 mg PO DAILY 30 Days Qty: 30 3RF cyanocobalamin (vitamin B-12) 500 mcg Tablet 1,000 mcg PO BEDTIME (DME) blood pressure test kit-large Kit See Rx Instructions .Route Qty: 1 0RF Rx Instructions: As directed Trulicity 0.75 mg/0.5 mL pen injector 0.75 mg subcut TU@0900 28 Days Qty: 2 3RF Rx Instructions: FUTURE REFILLS FROM PCP. insulin aspart U-100 [Novolog FlexPen U-100 Insulin] 100 unit/mL (3 mL) insulin pen 2 - 25 unit subcut TIDAC Qty: 15 3RF finasteride [Proscar] 5 mg tablet 5 mg PO DAILY 90 Days Qty: 90 1RF furosemide 40 mg tablet 40 mg PO DAILY PRN (Reason: edema) 30 Days Qty: 30 3RF carvedilol 6.25 mg tablet 6.25 mg PO BID 30 Days Qty: 60 3RF Rx Instructions: must administer with a meal/food clopidogrel 75 mg tablet 75 mg PO DAILY 30 Days Qty: 30 3RF ezetimibe [Zetia] 10 mg tablet 10 mg PO DAILY Qty: 30 3RF midodrine 10 mg tablet 10 mg PO DAILY PRN (Reason: low blood pressure) 30 Days Qty: 60 3RF Rx Instructions: do not give last dose of day after 6PM or within 4 hrs of bedtime pantoprazole 40 mg tablet,delayed release (DR/EC) 40 mg PO DAILY Qty: 30 3RF Farxiga 10 mg tablet 10 mg PO DAILY 30 Days Qty: 30 3RF gabapentin 400 mg capsule 400 mg PO TID 30 Days Qty: 90 3RF atorvastatin 80 mg tablet 80 mg PO BEDTIME 30 Days Qty: 30 3RF aspirin [Adult Aspirin Regimen] 81 mg tablet,delayed release (DR/EC) 81 mg PO DAILY 30 Days Qty: 30 3RF ferrous sulfate 325 mg (65 mg iron) tablet,delayed release (DR/EC) 325 mg PO DAILY Interventions: ED Discharge Assessment Last Done: 08/04/23 16:17 Discharge Date/Time: 08/04/23 16:18
[2023-08-04 14:24] VITALS: BP 140/59; PULSE 66; RESP 16; TEMP 36.6; O2SAT 100
--- NOTE | 2023-08-04 14:58 | PC.NURSE ---
provider at bedside to suture laceration
[2023-08-04] MEDS: Lidocaine HCl 1%/Epi 1:100,000 10 ML VIAL INFILTRATI (14:59)
[2023-08-04] MEDS: carvediloL 6.25 MG TABLET PO (15:21)
[2023-08-04] MEDS: Diphth,Pertus(ACell),Tet Adult 0.5 ML SYRINGE IM (15:55)
--- NOTE | 2023-08-04 16:04 | PC.NURSE ---
ambulated with steady gait utilizing patient's own cane.
== END 2023-08-04 16:18 | disposition home or self-care (01) ==
PROVIDERS: Emergency Provider Emergency Medicine; PCP Physician Assistant
DX: S00.81XA Abrasion of other part of head, initial encounter (principal); R51.9 Headache, unspecified; M54.2 Cervicalgia; W01.10XA Fall on same level from slipping, tripping and stumbling with subsequent striking against unspecified object, initial encounter; Y93.9 Activity, unspecified; Y92.9 Unspecified place or not applicable; Y99.9 Unspecified external cause status; Z79.899 Other long term (current) drug therapy; Z23 Encounter for immunization
CPT/HCPCS: 12004; 70450; 72125; 90471; 90715; 99283; 99284

== ENCOUNTER 2023-08-10 16:01 | Emergency (ER) | payer MEDICARE, SELFPAY ==
[2023-08-10] VITALS (10 sets, daily range): BP systolic 121–137; BP diastolic 46–78; PULSE 69–88; RESP 14–20; TEMP 36.6–36.8; O2SAT 98–100; BMI 30.5
--- NOTE | 2023-08-10 16:51 | ED_ITS ---
HPI - Recheck/Abnormal Lab/Rx General Chief Complaint: Recheck/Abnormal Lab/Rx Stated Complaint: Blood transfusion Time Seen by Provider: 08/10/23 16:19 Source: patient Mode of arrival: ambulatory Limitations: no limitations History of Present Illness HPI narrative: Patient is an 78-year-old male who presents emergency department from oncology department or blood transfusion. Patient reports that he was recently admitted to [facility] over the past month visit prolonged stay due to bacteremia, initial source unclear at this time, will attempt to obtain records from [facility]. He reports that he needed to have 2 units transfused during that stay. He has a PICC line in place which he is transfusing antibiotics twice daily, uncertain of the name. He gets routine blood work outpatient through [facility]. He reports that he was called by [facility] today to make him aware that he needs a blood transfusion, due to his lack of transportation, he presented to [facility] hematology requesting a blood transfusion. He has seen Dr. Nielsen in the past secondary to his history of iron deficiency anemia, he reports that he stopped iron transfusions approximately 1 year ago she, though he is uncertain why. He states that he has been generally weak since being discharged from the hospital on 07/24/2023, otherwise has no further physical complaints. Denies headache, vision changes, neck pain, chest pain, shortness of breath, numbness or tingling in the extremities nausea vomiting, abdominal pain. Related Data Home Medications Medication Instructions Recorded Confirmed cyanocobalamin (vitamin B-12) 500 1,000 mcg PO BEDTIME 12/29/22 04/08/23 mcg tablet ferrous sulfate 325 mg (65 mg 325 mg PO DAILY 04/29/23 iron) tablet,delayed release Previous Rx's Medication Instructions Recorded blood pressure test kit-large #1 ea 11/21/21 pen needle, diabetic 32 gauge x #150 ea 05/08/22 (BD Gifty 2nd Gen Pen Needle) blood-glucose meter (FreeStyle #1 ea 10/03/22 Lite Meter kit) flash glucose scanning reader #1 ea 10/03/22 (FreeStyle Marleni 14 Day [place]) flash glucose sensor (FreeStyle #2 ea 10/03/22 Marleni 14 Day Sensor kit) bethanechol chloride 25 mg tablet 25 mg PO BID 90 days #180 tabs 04/18/23 blood sugar diagnostic (FreeStyle #100 ea 02/24/23 Test strips) aspirin 81 mg tablet,delayed 81 mg PO DAILY 30 days #30 tabs 03/11/23 release (Adult Aspirin Regimen) atorvastatin 80 mg tablet 80 mg PO BEDTIME 30 days #30 tabs 03/11/23 carvedilol 6.25 mg tablet 6.25 mg PO BID 30 days #60 tabs 03/11/23 clopidogrel 75 mg tablet 75 mg PO DAILY 30 days #30 tabs 03/11/23 dapagliflozin propanediol 10 mg 10 mg PO DAILY 30 days #30 tabs 03/11/23 tablet (Farxiga) dulaglutide 0.75 mg/0.5 mL 0.75 mg (0.5 mL) subcut TU@0900 4 03/11/23 subcutaneous pen injector weeks #2 mL (Trulicity) ezetimibe 10 mg tablet (Zetia) 10 mg PO DAILY #30 tabs 03/11/23 finasteride 5 mg tablet (Proscar) 5 mg PO DAILY 90 days #90 tabs 03/11/23 furosemide 40 mg tablet 40 mg PO DAILY PRN edema 30 days 03/11/23 #30 tabs gabapentin 400 mg capsule 400 mg PO TID 30 days #90 caps 03/11/23 insulin aspart U-100 100 unit/mL 2 - 25 unit (0.02 - 0.25 mL) 03/11/23 (3 mL) subcutaneous pen (Novolog subcut TIDAC #15 mL FlexPen U-100 Insulin aspart) midodrine 10 mg tablet 10 mg PO DAILY PRN low blood 03/11/23 pressure 30 days #60 tabs pantoprazole 40 mg tablet,delayed 40 mg PO DAILY #30 tabs 03/11/23 release spironolactone 100 mg tablet 100 mg PO DAILY 90 days #90 tabs 05/25/23 tamsulosin 0.4 mg capsule 0.4 mg PO DAILY 90 days #90 caps 06/11/23 alprazolam 0.5 mg tablet 0.5 mg PO BID PRN Anxiety 30 days 06/22/23 #60 tabs lancets 28 gauge (FreeStyle #100 ea 06/26/23 Lancets) insulin degludec 200 unit/mL (3 60 unit (0.3 mL) subcut BEDTIME 30 07/06/23 mL) subcutaneous pen (Tresiba days #9 mL FlexTouch U-200 insulin) folic acid 800 mcg tablet 0.8 mg PO DAILY 30 days #30 tabs 07/30/23 Allergies Allergy/AdvReac Type Severity Reaction Status Date / Time KARL Inhibitors Allergy Severe Angioedema Verified 08/10/23 16:17 dextran 40 [DEXTRAN 40] Allergy Intermediate tachycardia Verified 08/10/23 16:17 latex [LATEX] Allergy Mild BLISTERS Verified 08/10/23 16:17 lisinopril [From Zestril] Allergy Mild Unknown Verified 08/10/23 16:17 Iodinated Contrast Media Allergy Unknown UNKNOWN Verified 08/10/23 16:17 [CONTRAST,IV] Review of Systems 2 Review of Systems: Yes all other systems are reviewed and are negative PMFSH Past Medical History Attestation statement: The following information was validated with the patient. 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 Diabetes type 2, uncontrolled Varices of esophagus determined by endoscopy Esophageal varices without bleeding KOEHLER (dyspnea on exertion) Chronic fatigue Iron deficiency anemia CAD (coronary artery disease) ANUJA on CPAP Prostate cancer Spinal stenosis On beta kayy at home IBS (irritable colon syndrome) Aortic stenosis HTN (hypertension) DMII (diabetes mellitus, type 2) Polyneuropathy GERD (gastroesophageal reflux disease) Surgical History H/O cataract extraction Hx of endoscopy History of colonoscopy Hx of esophagogastroduodenoscopy Hx of colonoscopy History of surgery History of transurethral resection of prostate History of surgery History of heart artery stent Family History Family History Father CVD (cardiovascular disease) Past heart attack Mother CVD (cardiovascular disease) Brain cancer Heart problem Daughter Breast cancer Sister Breast cancer Son Alive and well Family/Other Myocardial infarction Liver cancer Social History Household Members: Spouse Household Members Other:: Myesha Housing: House Are you a primary nonfarm animal caretaker to a significant other at home: No Do you presently have visiting nurse or other home services: No Alcohol intake: never Patient Tobacco Use Status: Never used Tobacco e-Cigarette/Vaping Use: Never Used Second Hand Smoke Exposure: No Advance Directives: No Advance Directives Information Provided: No service: Yes Current occupational status: retired Cognitive needs: No Hearing needs: No Vision needs: Yes Physical Exam 2 Vital Signs: Vital Signs: Last Vital Signs Temp 98.0 F 08/10/23 23:58 Pulse 88 08/10/23 23:58 Resp 17 08/10/23 23:58 BP 134/46 L 08/10/23 23:58 Pulse Ox 99 08/10/23 21:33 O2 Del Method Room Air 08/10/23 21:33 BMI result Body Mass Index 30.5 Appearance: Alert.?Oriented to person, place and time. No acute distress.?Normal affect. Eyes: Pupils equal, round and reactive to light.? ENT: Pharynx normal.?? Neck: Normal inspection.? Neck supple.?? CVS: Heart sounds normal. Normal heart rate and rhythm.? Pulses normal.?? Respiratory: No respiratory distress.? Lung sounds clear to auscultation bilaterally?? Abdomen: Soft and non-tender. Normoactive bowel sounds. ?? Skin: Skin warm and dry.? Normal skin color.? Extremities: No lower extremity edema.? No calf ttp.?PICC in place to RUE Neuro: Moves all extremities spontaneously. Sensation intact bilaterally. No focal neuro deficits. Ambulates with normal steady gait. Course Reevaluation(s) Reevaluation #1: Received records from [facility], treatment for Enterococcus faecialis bacteremia, infective endocarditis (TTE without evidence of gross vegetations, LISANDRA unable to be obtained due to history of varices, cardiac CT positive for vegetations) and history of Streptococcus bacteremia and epidural abscess with C5-C6 osteomyelitis in January 2023 (received 6 weeks treatment of ceftriaxone). Is advised to follow up outpatient with Cardiology for consideration of replacement of pacemaker yet. Discharged with 6 week treatment of ceftriaxone b.i.d., end date September 04. Records from [facility] baseline EGFR of 45, most recent creatinine in obtained prior to discharge on 07/22/2023 of 1.5 Reevaluation #2: Patient received 2 units PRBC, reports continued feeling of generalized weakness. Advised patient that due to weakness, have concerns regarding symptomatic anemia, patient declines to s have a repeat CBC. We discussed knee the against medical advice, possible risks and complications which may be life threatening if he continues to have worsening anemia. He verbalizes understanding of this. He is conscious alert and oriented x3. Speaking clear full sentences. Able to make decisions. 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 A patient's CBC revealing pancytopenia which is baseline, however decrease and hemoglobin and hematocrit at 6.6/22.6 respectively. Plan to transfuse 2 units PRBC, reviewed blood transfusion consent form, indications, potential risks, verbalizes understanding will consent was signed. No active sources of bleeding, denies hematochezia or melena, denies digit rectal examination for occult stool sampling. Reporting generalized weakness over the past 9 days after being discharged from the hospital, 6 was without symptoms. Differential Diagnosis Differential Diagnoses: The differential diagnosis associated with the presentation includes (Iron Deficiency anemia, anemia of chronic disease, no source of active bleeding) Admission/Observation Consideration of admission/observation: Escalation of care including admission/observation considered (I considered admission for anemia, see course narrative for further details) Consult Healthcare Provider Management of the patient was discussed with: Liquor Tester I spoke with Hematology, Dr. Nielsen who advised me that he presented to her office without appointment today requesting the blood transfusion. She offered to schedule him an appointment tomorrow to be transfused, his sister however who was present with him declined to wait until tomorrow, therefore patient presented to the emergency department for transfusion. Lab Data MDM Lab Attestation statement: I reviewed the patient's lab results. 08/10/23 17:07 08/10/23 17:07 Labs: Lab Results 08/10/23 Range/Units 17:07 WBC 4.2 L (4.8-10.8) X10*3/uL RBC 2.60 L (4.60-5.80) X10*6/uL Hgb 6.7 L* (14.0-18.0) g/dl Hct 22.7 L (42.0-52.0) % MCV 87.3 (80.0-98.0) fL MCH 25.8 L (27.0-33.0) pg MCHC 29.5 L (31.0-36.0) g/dl RDW 17.0 H (11.0-16.0) % Plt Count 146 L (160-400) X10*3/uL MPV 10.3 (9.4-12.4) fL Immature Gran % (Auto) 0.2 (0.0-0.4) % Neut % (Auto) 73.8 H (45-73) % Lymph % (Auto) 10.5 L (20-40) % [place] % (Auto) 12.9 H (2-11) % Eos % (Auto) 1.4 (0-4) % Baso % (Auto) 1.2 (0-2) % Lymph # (Auto) 0.4 L (1.2-4.9) X10*3/uL [place] # (Auto) 0.5 (0.1-1.2) X10*3/uL Eos # (Auto) 0.1 (0.0-0.4) X10*3/uL Baso # (Auto) 0.1 (0.0-0.2) X10*3/uL Abs Immat Gran (auto) 0.01 (0.00-0.03) X10*3/uL Absolute Neuts (auto) 3.1 (2.0-8.3) x10*3/uL Absolute Nucleated RBC 0.000 (0.0-0.012) X10*3/uL Nucleated RBC % (auto) 0.0 (0.0-0.2) /100WBC Sodium 140 (135-145) mmol/L Potassium 4.7 (3.3-5.1) mmol/L Chloride 109 H (96-108) mmol/L Carbon Dioxide 24 (22-29) mmol/L Anion Gap 12 (12-20) BUN 32 H (9-16) mg/dL Creatinine 1.59 H (0.5-1.4) mg/dL Estim Creat Clear Calc 41.8 Estimated GFR 42 Random Glucose 165 H (60-115) mg/dL Calcium 8.5 (8.4-10.2) mg/dL Total Bilirubin 0.5 (0.0-1.0) mg/dL AST 28 (5-37) U/L ALT 24 (0-40) U/L Alkaline Phosphatase 152 H (39-117) U/L Total Protein 6.6 (6.5-8.0) g/dL Albumin 3.1 L (3.5-5.0) g/dL Blood Type A Positive Antibody Screen NEGATIVE Crossmatch See Detail Independent Historian Clinical information obtained from an independent historian. History obtained from or confirmed by: Other (Sister present at bedside who confirms history) External Record Review External record reviewed: Prior outpatient labs Discharge Plan Discharge Clinical Impression: Anemia Patient Disposition: Left Against Medical Advice Instructions: Anemia (ED) Additional Instructions: As discussed, it was recommended that you remain in the emergency department to have repeat blood count levels obtained. You however declined to stay after your transfusions. You are leaving against medical advice. Continue taking all of your medications as prescribed. Contact your PCP/artificial flowers supervisor to arrange for a follow-up visit regarding your persistent anemia with requirement for multiple transfusions over the past month. Return back to emergency department any new or worsening symptoms or concerns. Prescriptions: No Action (DME) pen needle, diabetic [BD Gifty 2nd Gen Pen Needle] 32 gauge x 5/32 needle See Rx Instructions .MEDSUPPLY Qty: 150 5RF Rx Instructions: 4 times a day (DME) FreeStyle Marleni 14 Day [place] Misc See Rx Instructions .Route Qty: 1 0RF Rx Instructions: As directed (DME) FreeStyle Marleni 14 Day Sensor Kit See Rx Instructions .Route Qty: 2 2RF Rx Instructions: As directed (DME) blood-glucose meter [FreeStyle Lite Meter] Kit See Rx Instructions .Route Qty: 1 0RF Rx Instructions: As directed bethanechol chloride 25 mg tablet 25 mg PO BID 90 Days Qty: 180 1RF (DME) FreeStyle Test Strip See Rx Instructions .Route Qty: 100 3RF Rx Instructions: three times per day spironolactone 100 mg tablet 100 mg PO DAILY 90 Days Qty: 90 1RF tamsulosin 0.4 mg capsule 0.4 mg PO DAILY 90 Days Qty: 90 1RF alprazolam 0.5 mg tablet 0.5 mg PO BID PRN (Reason: Anxiety) 30 Days Qty: 60 2RF (DME) lancets [FreeStyle Lancets] 28 gauge misc See Rx Instructions .Route Qty: 100 6RF Rx Instructions: As directed three times per day insulin degludec [Tresiba FlexTouch U-200] 200 unit/mL (3 mL) insulin pen 60 unit subcut BEDTIME 30 Days Qty: 9 3RF folic acid 800 mcg tablet 0.8 mg PO DAILY 30 Days Qty: 30 3RF cyanocobalamin (vitamin B-12) 500 mcg Tablet 1,000 mcg PO BEDTIME (DME) blood pressure test kit-large Kit See Rx Instructions .Route Qty: 1 0RF Rx Instructions: As directed Trulicity 0.75 mg/0.5 mL pen injector 0.75 mg subcut TU@0900 28 Days Qty: 2 3RF Rx Instructions: FUTURE REFILLS FROM PCP. insulin aspart U-100 [Novolog FlexPen U-100 Insulin] 100 unit/mL (3 mL) insulin pen 2 - 25 unit subcut TIDAC Qty: 15 3RF finasteride [Proscar] 5 mg tablet 5 mg PO DAILY 90 Days Qty: 90 1RF furosemide 40 mg tablet 40 mg PO DAILY PRN (Reason: edema) 30 Days Qty: 30 3RF carvedilol 6.25 mg tablet 6.25 mg PO BID 30 Days Qty: 60 3RF Rx Instructions: must administer with a meal/food clopidogrel 75 mg tablet 75 mg PO DAILY 30 Days Qty: 30 3RF ezetimibe [Zetia] 10 mg tablet 10 mg PO DAILY Qty: 30 3RF midodrine 10 mg tablet 10 mg PO DAILY PRN (Reason: low blood pressure) 30 Days Qty: 60 3RF Rx Instructions: do not give last dose of day after 6PM or within 4 hrs of bedtime pantoprazole 40 mg tablet,delayed release (DR/EC) 40 mg PO DAILY Qty: 30 3RF Farxiga 10 mg tablet 10 mg PO DAILY 30 Days Qty: 30 3RF gabapentin 400 mg capsule 400 mg PO TID 30 Days Qty: 90 3RF atorvastatin 80 mg tablet 80 mg PO BEDTIME 30 Days Qty: 30 3RF aspirin [Adult Aspirin Regimen] 81 mg tablet,delayed release (DR/EC) 81 mg PO DAILY 30 Days Qty: 30 3RF ferrous sulfate 325 mg (65 mg iron) tablet,delayed release (DR/EC) 325 mg PO DAILY Referrals: Wanda Nielsen MD [Physician] - Roberto Carlos Cisneros PA-C [Primary Care Provider] - Stand Alone Forms: Against Medical Advice Interventions: ED Discharge Assessment Last Done: 08/11/23 00:50 Discharge Date/Time: 08/11/23 00:51
[2023-08-10 17:14] LABS: Basophils Absolute Auto 0.1 X10*3/uL (0.0-0.2); Basophils Percent Auto 1.2 % (0-2); Eosinophils Absolute Auto 0.1 X10*3/uL (0.0-0.4); Eosinophils Percent Auto 1.4 % (0-4); Hematocrit 22.7 % (42.0-52.0); Imm Gran Abs Auto 0.01 X10*3/uL (0.00-0.03); Imm Gran Pct Auto 0.2 % (0.0-0.4); Lymphocytes Absolute Auto 0.4 X10*3/uL (1.2-4.9); Lymphocytes Percent Auto 10.5 % (20-40); Mean Corpuscular HGB Conc 29.5 g/dl (31.0-36.0); Mean Corpuscular Hemoglobin 25.8 pg (27.0-33.0); Mean Corpuscular Volume 87.3 fL (80.0-98.0); Mean Platelet Volume 10.3 fL (9.4-12.4); Monocytes Absolute Auto 0.5 X10*3/uL (0.1-1.2); Monocytes Percent Auto 12.9 % (2-11); Neutrophils Absolute Auto 3.1 x10*3/uL (2.0-8.3); Neutrophils Percent Auto 73.8 % (45-73); Platelet Count 146 X10*3/uL (160-400); White Blood Count 4.2 X10*3/uL (4.8-10.8)
[2023-08-10 17:15] LABS: MANUAL DIFF FLAG NO
[2023-08-10 17:28] LABS: Alanine Aminotransferase 24 U/L (0-40); Albumin Level 3.1 g/dL (3.5-5.0); Alkaline Phosphatase 152 U/L (39-117); Anion Gap 12 (12-20); Aspartate Amino Transferase 28 U/L (5-37); Bilirubin Total 0.5 mg/dL (0.0-1.0); Blood Urea Nitrogen 32 mg/dL (9-16); Calcium 8.5 mg/dL (8.4-10.2); Carbon Dioxide 24 mmol/L (22-29); Chloride 109 mmol/L (96-108); Creatinine Clr Calc Pharmacy 41.8; Estimated Glomerular Filt Rate 42; Glucose Random 165 mg/dL (60-115); Potassium 4.7 mmol/L (3.3-5.1); Sodium 140 mmol/L (135-145); Total Protein 6.6 g/dL (6.5-8.0)
[2023-08-10 17:40] LABS: Hemoglobin 6.7 g/dl (14.0-18.0)
--- NOTE | 2023-08-10 18:50 | PC.NURSE ---
first unit of blood verified by two rns and transfusion started. pt tolerating transfusion well. vss pt's nephew at his bedside.
--- NOTE | 2023-08-10 19:40 | PC.NURSE ---
assumed care of pt
--- NOTE | 2023-08-11 00:51 | PC.NURSE ---
pt signed ama form prior to leave
== END 2023-08-11 00:51 | disposition left against medical advice (07) ==
PROVIDERS: Nurse Practitioner Family; Emergency Provider Emergency Medicine; PCP Physician Assistant
DX: D64.9 Anemia, unspecified (principal); R53.1 Weakness; Z95.9 Presence of cardiac and vascular implant and graft, unspecified; Z79.2 Long term (current) use of antibiotics; E11.9 Type 2 diabetes mellitus without complications; I10 Essential (primary) hypertension; E78.5 Hyperlipidemia, unspecified; D50.9 Iron deficiency anemia, unspecified; Z85.46 Personal history of malignant neoplasm of prostate; Z79.02 Long term (current) use of antithrombotics/antiplatelets; Z79.4 Long term (current) use of insulin; Z79.899 Other long term (current) drug therapy; Z79.82 Long term (current) use of aspirin
CPT/HCPCS: 36415; 36430; 80053; 85025; 86850; 86900; 86901; 86923; 96360; 96361; 99284; 99285; P9016

== ENCOUNTER 2023-08-25 13:50 | Inpatient (IN) | payer MEDICARE, SELFPAY ==
[2023-08-25] VITALS (10 sets, daily range): BP systolic 114–149; BP diastolic 40–62; PULSE 65–84; RESP 12–20; TEMP 36.1–36.8; O2SAT 94–100; BMI 27.3
--- NOTE | ~2023-08-25 | XR_ITS ---
EXAMINATION: XR HUMERUS, LEFT CLINICAL INFORMATION: Pain, fall COMPARISON: None available. TECHNIQUE: AP and lateral views of the left humerus. FINDINGS: There is an impacted fracture of the left humeral head, fully described on the shoulder x-ray report. The mid and distal humerus are intact. XR/XR humerus LT IMPRESSION: 1. Impacted fracture of the left humeral neck-see left shoulder x-ray report.
--- NOTE | ~2023-08-25 | US_ITS ---
EXAMINATION: US ABDOMEN LIMITED CLINICAL INFORMATION: Assess for ascites. Abdominal distention.. COMPARISON: 06/17/2022 CT scan TECHNIQUE: Real-time imaging of all 4 quadrants to assess for ascites. FINDINGS: No sonographic evidence for ascites and all 4 quadrants US/US abdomen limited IMPRESSION: No sonographic evidence for significant ascites.
--- NOTE | ~2023-08-25 | XR_ITS ---
EXAMINATION: XR ELBOW, LEFT CLINICAL INFORMATION: Pain, fall COMPARISON: None available. TECHNIQUE: AP, lateral, and oblique views of the left elbow. FINDINGS: The bones and soft tissues are normal. No fracture or joint effusion. Alignment is anatomic. Joint spaces are maintained. XR/XR elbow LT min 3V IMPRESSION: No acute fracture or subluxation of the left elbow.
--- NOTE | ~2023-08-25 | CT_ITS ---
Examination: CT humerus LT w IV con Indication: Reason for Exam recent fx, anemic, r/o active extravasation Comparison: No pertinent prior studies are currently available for comparison. Technique: Multiple serial helical slices through the left arm obtained. Soft tissue and bony algorithms evaluated. Coronal and soft tissue reformatted images were performed on the technologist workstation. Pre and postcontrast images were evaluated utilizing 85 mL of Omnipaque intravenous contrast.. This CT examination was performed using dose optimization techniques as appropriate, variously including the following: *Automated exposure control *Adjustment of mA and/or kV according to patient size (this includes techniques or standardized protocols for targeted exams where dose is matched to indication/reason for exam; i.e. extremities or head) *Use of iterative reconstruction technique DLP: 159 mGy cm Findings: Comminuted slightly impacted fracture of the left humeral neck and head with associated shoulder joint effusion and associated small associated soft tissue hematoma. I do not appreciate any obvious contrast extravasation. There is significant soft tissue swelling seen about the elbow and forearm. I do not appreciate any obvious contrast extravasation in the soft tissues. No displaced left-sided rib fracture. Left pacemaker generator noted CT/CT humerus LT w IV con Impression: Comminuted slightly impacted fracture of the left humeral neck and head with associated shoulder joint effusion and associated soft tissue hematoma. I do not appreciate any obvious contrast extravasation in the soft tissues.
--- NOTE | ~2023-08-25 | XR_ITS ---
EXAMINATION: XR SHOULDER, LEFT CLINICAL INFORMATION: Shoulder pain and trauma COMPARISON: None available. TECHNIQUE: AP external rotation, Grashey, scapular Y views of the left shoulder. FINDINGS: There is an impacted subcapital comminuted fracture of the left humeral neck. The humeral head is located. The humeral head is displaced slightly caudally. The glenoid is intact. XR/XR shoulder LT min 2V IMPRESSION: Impacted subcapital fracture of the left humeral neck. 2. Low-lying humeral head, either on the basis of rotator cuff injury or intra-articular hemarthrosis.
--- NOTE | 2023-08-25 15:00 | ED.GENADULT ---
HPI - General Adult General Chief complaint: Recheck/Abnormal Lab/Rx Stated complaint: Referred by PCP - blood transfusion Time Seen by Provider: 08/25/23 16:03 Source: patient Mode of arrival: ambulatory Limitations: no limitations History of Present Illness HPI narrative: Patient comes to the emergency room complaining of anemia. Patient states that he has history of anemia since he was in his 20s and has had multiple blood transfusions. However, patient is concerned that his new anemia is secondary to active bleeding in his left forearm. Two days ago patient sustained a fall, left humeral fracture. Patient takes Plavix and aspirin daily. Patient denies any chest pain or shortness of breath. Patient denies any blood in the stool or in the urine. Related Data Home Medications Medication Instructions Recorded Confirmed cyanocobalamin (vitamin B-12) 500 1,000 mcg PO BEDTIME 12/29/22 04/08/23 mcg tablet ferrous sulfate 325 mg (65 mg 325 mg PO DAILY 04/29/23 iron) tablet,delayed release Previous Rx's Medication Instructions Recorded blood pressure test kit-large #1 ea 11/21/21 pen needle, diabetic 32 gauge x #150 ea 05/08/22 (BD Gifty 2nd Gen Pen Needle) blood-glucose meter (FreeStyle #1 ea 10/03/22 Lite Meter kit) flash glucose scanning reader #1 ea 10/03/22 (FreeStyle Marleni 14 Day Black) flash glucose sensor (FreeStyle #2 ea 10/03/22 Marleni 14 Day Sensor kit) bethanechol chloride 25 mg tablet 25 mg PO BID 90 days #180 tabs 12/30/22 blood sugar diagnostic (FreeStyle #100 ea 02/24/23 Test strips) aspirin 81 mg tablet,delayed 81 mg PO DAILY 30 days #30 tabs 03/11/23 release (Adult Aspirin Regimen) atorvastatin 80 mg tablet 80 mg PO BEDTIME 30 days #30 tabs 03/11/23 carvedilol 6.25 mg tablet 6.25 mg PO BID 30 days #60 tabs 03/11/23 clopidogrel 75 mg tablet 75 mg PO DAILY 30 days #30 tabs 03/11/23 dapagliflozin propanediol 10 mg 10 mg PO DAILY 30 days #30 tabs 03/11/23 tablet (Farxiga) dulaglutide 0.75 mg/0.5 mL 0.75 mg (0.5 mL) subcut TU@0900 4 03/11/23 subcutaneous pen injector weeks #2 mL (Trulicity) ezetimibe 10 mg tablet (Zetia) 10 mg PO DAILY #30 tabs 03/11/23 finasteride 5 mg tablet (Proscar) 5 mg PO DAILY 90 days #90 tabs 03/11/23 furosemide 40 mg tablet 40 mg PO DAILY PRN edema 30 days 03/11/23 #30 tabs insulin aspart U-100 100 unit/mL 2 - 25 unit (0.02 - 0.25 mL) 03/11/23 (3 mL) subcutaneous pen (Novolog subcut TIDAC #15 mL FlexPen U-100 Insulin aspart) midodrine 10 mg tablet 10 mg PO DAILY PRN low blood 03/11/23 pressure 30 days #60 tabs pantoprazole 40 mg tablet,delayed 40 mg PO DAILY #30 tabs 03/11/23 release spironolactone 100 mg tablet 100 mg PO DAILY 90 days #90 tabs 05/25/23 tamsulosin 0.4 mg capsule 0.4 mg PO DAILY 90 days #90 caps 06/11/23 alprazolam 0.5 mg tablet 0.5 mg PO BID PRN Anxiety 30 days 06/22/23 #60 tabs lancets 28 gauge (FreeStyle #100 ea 06/26/23 Lancets) insulin degludec 200 unit/mL (3 60 unit (0.3 mL) subcut BEDTIME 30 07/06/23 mL) subcutaneous pen (Tresiba days #9 mL FlexTouch U-200 insulin) folic acid 800 mcg tablet 0.8 mg PO DAILY 30 days #30 tabs 07/30/23 gabapentin 400 mg capsule 400 mg PO TID 30 days #90 caps 08/12/23 Allergies Allergy/AdvReac Type Severity Reaction Status Date / Time KARL Inhibitors Allergy Severe Angioedema Verified 08/25/23 14:56 dextran 40 [DEXTRAN 40] Allergy Intermediate tachycardia Verified 08/25/23 14:56 latex [LATEX] Allergy Mild BLISTERS Verified 08/25/23 14:56 lisinopril [From Zestril] Allergy Mild Unknown Verified 08/25/23 14:56 Iodinated Contrast Media Allergy Unknown UNKNOWN Verified 08/25/23 14:56 [CONTRAST,IV] Review of Systems Review of Systems: Constitutional : No Weight loss, No Fever, No Chills, No Night Sweats, No Fatigue, No Malaise ENT/Mouth : No Hearing loss, No Ear Pain, No Nasal Congestion, No Sinus Pain, No Hoarseness, No sore throat, No Rhinorrhea, No Swallowing Difficulty Eyes: No Eye Pain, No Swelling, No Redness, No Foreign Body, No Discharge, No Vision Changes Cardiovascular : No Chest Pain, No SOB, No Dyspnea on Exertion, No Orthopnea, No Edema, No Palpitations Respiratory : No Cough, No Sputum, No Wheezing, No Smoke Exposure, No Dyspnea Gastrointestinal : No Nausea, No Vomiting, No Diarrhea, No Constipation, No abdominal Pain, No Hematochezia, No Melena Genitourinary : no irregular bleeding, No Dysuria, No Urinary Frequency, No Hematuria, No Urinary Incontinence, No Urgency, No Flank Pain, No Urinary Flow Changes, No Hesitancy Musculoskeletal : Recuperating of left humeral fracture, No Myalgias, No Joint Swelling Skin : No Skin Lesions, No rash Neuro : No Weakness, No Numbness, No Paresthesias, No Loss of Consciousness, No Dizziness, No Headache Psych : No Anxiety/Panic, No Depression, No SI/HI/AH/VH, No Social Issues, Heme/Lymph: No Bruising, No Bleeding,No Lymphadenopathy, complaining of low hemoglobin/hematocrit, history of anemia Endocrine : No Polyuria, No Polydipsia, No Temperature Intolerance [facility] Past Medical History Medical History History of prostate cancer Acute lower gastrointestinal bleeding COVID-19 vaccine series completed Hypertension Dyslipidemia Diabetic nephropathy associated with type 2 diabetes mellitus Diabetic 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 associated with type 2 diabetes mellitus 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 Diabetes type 2, uncontrolled Varices of esophagus determined by endoscopy Esophageal varices without bleeding KOEHLER (dyspnea on exertion) Chronic fatigue Iron deficiency anemia CAD (coronary artery disease) ANUJA on CPAP Prostate cancer Spinal stenosis On beta kayy at home IBS (irritable colon syndrome) Aortic stenosis HTN (hypertension) DMII (diabetes mellitus, type 2) Polyneuropathy GERD (gastroesophageal reflux disease) Surgical History H/O cataract extraction Hx of endoscopy History of colonoscopy Hx of esophagogastroduodenoscopy Hx of colonoscopy History of surgery History of transurethral resection of prostate History of surgery History of heart artery stent Family History Family History Father CVD (cardiovascular disease) Past heart attack Mother CVD (cardiovascular disease) Brain cancer Heart problem Daughter Breast cancer Sister Breast cancer Son Alive and well Family/Other Myocardial infarction Liver cancer Social History Social History Household Members: Spouse Household Members Other:: Myesha Housing: House Are you a primary pediatric acute care unit nurse to a significant other at home: No Do you presently have visiting nurse or other home services: No Alcohol intake: never Patient Tobacco Use Status: Never used Tobacco Smoked in Last 30 Days: No e-Cigarette/Vaping Use: Never Used Second Hand Smoke Exposure: No Use of substances other than those prescribed or required for medical reasons: No Advance Directives: No Advance Directives Information Provided: No service: Yes Current occupational status: retired Cognitive needs: No Hearing needs: No Vision needs: Yes Physical Exam ED Vital Signs: Vital Signs - 24 hr 08/25/23 14:57 08/25/23 16:00 08/25/23 18:49 Temperature 96.9 F 97.6 F Pulse Rate 84 74 66 Respiratory Rate 18 16 16 Blood Pressure 144/44 H 135/40 L 118/40 L Pulse Oximetry 94 100 Oxygen Delivery Method Room Air Room Air 08/25/23 18:54 08/25/23 19:09 Temperature 97.8 F 97.5 F Pulse Rate 75 72 Respiratory Rate 16 12 Blood Pressure 114/45 L 144/56 H Pulse Oximetry Oxygen Delivery Method BMI result Body Mass Index 27.3 Const Other: Appearance: Alert. Oriented X3. No acute distress. Eyes: Pupils equal, round and reactive to light. ENT: Pharynx normal. Neck: Normal inspection. Neck supple. No lymph nodes noted. No crepitus CVS: Normal heart rate and rhythm. Pulses normal. Normal S1 and S2 Respiratory: No respiratory distress. Breath sounds normal. No Wheezing. No rales Abdomen: Soft and nontender. No rigidity. No distention. Mild ecchymosis in left lower quadrant, no abdominal pain at all on deep palpation. Digital rectal exam is heme-positive, brown stool Skin: Skin warm and dry. Slightly pale skin color. Normal skin turgor. Extensive ecchymosis in left arm and forearm and lower abdomen Extremities: No lower extremity edema. No Lacerations. No Rash Neuro: Oriented X 3. No motor deficit. No sensory deficit. Moving all extremities. No slurred speech. CN 2 through 12 grossly intact Psych: calm, cooperative, normal affect Course Course Course Narrative: RME: 78-year-old male with a past medical history pacemaker, GERD, ACS on plavix, HTN, cirrhosis, diabetes, ? Left humeral fracture S/P trip and fall 08/21/23 seen at urgent care presenting to the ED sent in by Dr. Nielsen for anemia noted on outpatient labs with a hemoglobin of 6.7/22.7 on 08/10/2023. Believes is bleeding into arm. Patient denies melena, bloody bowel movements, hematuria. Reports associated dizziness Pale. Left arm with diffuse ecchymosis and tenderness. Limited ROM EKG, labs, UA, type and screen, x-rays ordered Full HPI, ROS and PE to be performed by primary ED provider. Medications Administered Discontinued Medications Generic Name Dose Route Start Last Admin Trade Name Freq PRN Reason Stop Dose Admin Iohexol 85 ml 08/25/23 18:16 08/25/23 18:17 Iohexol 350 Mg/Ml 100 Ml Infus..Btl IV 08/25/23 18:17 85 ml ONCE ONE Administration Medical Decision Making Medical Decision Making [facility] Narrative: -my interpretation of labs, alone patient's hemoglobin is 6.6., hematocrit 22.4. Patient has history of anemia and previous blood transfusions. Patient receiving 2 units of blood -my interpretation of CT scan of the humerus does not show any active extravasation. -digital rectal exam shows heme-positive stool. -I discussed the patient with Dr. Burns and Dr. Whittaker, patient will be admitted by the hospitalist and patient will be seen by GI tomorrow. -I discussed the patient with Dr. Warner, patient being admitted Differential Diagnosis Differential Diagnoses: The differential diagnosis associated with the presentation includes (Humerus fracture active extravasation, GI bleed, iron deficiency anemia) Admission/Observation Consideration of admission/observation: Escalation of care including admission/observation considered Consult Healthcare Provider Management of the patient was discussed with: Hospitalist and Barber Apprentice Lab Data [facility] Lab Attestation statement: I reviewed the patient's lab results. 08/25/23 15:21 08/25/23 15:21 Labs: Lab Results 08/25/23 08/25/23 08/25/23 Range/Units 15:21 17:31 19:25 WBC 3.3 L (4.8-10.8) X10*3/uL RBC 2.58 L (4.60-5.80) X10*6/uL Hgb 6.6 L* (14.0-18.0) g/dl Hct 22.4 L (42.0-52.0) % MCV 86.8 (80.0-98.0) fL MCH 25.6 L (27.0-33.0) pg MCHC 29.5 L (31.0-36.0) g/dl RDW 17.2 H (11.0-16.0) % Plt Count 111 L (160-400) X10*3/uL MPV 10.4 (9.4-12.4) fL Immature Gran % (Auto) 0.3 (0.0-0.4) % Neut % (Auto) 74.1 H (45-73) % Lymph % (Auto) 9.8 L (20-40) % [place] % (Auto) 12.5 H (2-11) % Eos % (Auto) 2.1 (0-4) % Baso % (Auto) 1.2 (0-2) % Lymph # (Auto) 0.3 L (1.2-4.9) X10*3/uL [place] # (Auto) 0.4 (0.1-1.2) X10*3/uL Eos # (Auto) 0.1 (0.0-0.4) X10*3/uL Baso # (Auto) 0.0 (0.0-0.2) X10*3/uL Abs Immat Gran (auto) 0.01 (0.00-0.03) X10*3/uL Absolute Neuts (auto) 2.4 (2.0-8.3) x10*3/uL Absolute Nucleated RBC 0.000 (0.0-0.012) X10*3/uL Nucleated RBC % (auto) 0.0 (0.0-0.2) /100WBC PT 14.4 H (11.1-13.3) SEC INR 1.2 H (0.9-1.1) APTT 28.8 (26.0-36.4) SEC Sodium 142 (135-145) mmol/L Potassium 4.1 (3.3-5.1) mmol/L Chloride 111 H (96-108) mmol/L Carbon Dioxide 23 (22-29) mmol/L Anion Gap 12 (12-20) BUN 53 H (9-16) mg/dL Creatinine 1.41 H (0.5-1.4) mg/dL Estim Creat Clear Calc 41.7 Estimated GFR 48 POC Glucose 82 (60-115) mg/dL Random Glucose 126 H (60-115) mg/dL Calcium 8.6 (8.4-10.2) mg/dL Magnesium 2.5 (1.6-2.6) mg/dL Total Bilirubin 0.4 (0.0-1.0) mg/dL Direct Bilirubin 0.3 (0.0-0.5) mg/dL AST 46 H (5-37) U/L ALT 30 (0-40) U/L Alkaline Phosphatase 181 H (39-117) U/L Total Protein 6.5 (6.5-8.0) g/dL Albumin 3.3 L (3.5-5.0) g/dL Stool Occult Blood POSITIVE (NEGATIVE) Blood Type A Positive Antibody Screen NEGATIVE Crossmatch See Detail Independent Interpretation I performed an independent interpretation of an: CT Scan Radiology Impression Discussion of test interpretation with radiology: I have reviewed the radiologist's reading. External Record Review External record reviewed: Outpatient record (Gastroenterology and hematology outpatient notes) Critical Care Time Critical Care Time Critical Care Time: Yes Total Critical Care Time: 90 Attestation: I have personally provided critical care time. Time includes review of lab data, radiology results, discussion with consultants, and monitoring for potential decompensation. Intervention performed as documented. Discharge Plan Discharge Clinical Impression: Anemia, GI bleed Patient Disposition: Admitted As Inpatient Prescriptions: No Action (DME) pen needle, diabetic [BD Gifty 2nd Gen Pen Needle] 32 gauge x 5/32 needle See Rx Instructions .MEDSUPPLY Qty: 150 5RF Rx Instructions: 4 times a day (DME) FreeStyle Marleni 14 Day Black Misc See Rx Instructions .Route Qty: 1 0RF Rx Instructions: As directed (DME) FreeStyle Marleni 14 Day Sensor Kit See Rx Instructions .Route Qty: 2 2RF Rx Instructions: As directed (DME) blood-glucose meter [FreeStyle Lite Meter] Kit See Rx Instructions .Route Qty: 1 0RF Rx Instructions: As directed bethanechol chloride 25 mg tablet 25 mg PO BID 90 Days Qty: 180 1RF (DME) FreeStyle Test Strip See Rx Instructions .Route Qty: 100 3RF Rx Instructions: three times per day spironolactone 100 mg tablet 100 mg PO DAILY 90 Days Qty: 90 1RF tamsulosin 0.4 mg capsule 0.4 mg PO DAILY 90 Days Qty: 90 1RF alprazolam 0.5 mg tablet 0.5 mg PO BID PRN (Reason: Anxiety) 30 Days Qty: 60 2RF (DME) lancets [FreeStyle Lancets] 28 gauge misc See Rx Instructions .Route Qty: 100 6RF Rx Instructions: As directed three times per day insulin degludec [Tresiba FlexTouch U-200] 200 unit/mL (3 mL) insulin pen 60 unit subcut BEDTIME 30 Days Qty: 9 3RF folic acid 800 mcg tablet 0.8 mg PO DAILY 30 Days Qty: 30 3RF gabapentin 400 mg capsule 400 mg PO TID 30 Days Qty: 90 3RF cyanocobalamin (vitamin B-12) 500 mcg Tablet 1,000 mcg PO BEDTIME (DME) blood pressure test kit-large Kit See Rx Instructions .Route Qty: 1 0RF Rx Instructions: As directed Trulicity 0.75 mg/0.5 mL pen injector 0.75 mg subcut TU@0900 28 Days Qty: 2 3RF Rx Instructions: FUTURE REFILLS FROM PCP. insulin aspart U-100 [Novolog FlexPen U-100 Insulin] 100 unit/mL (3 mL) insulin pen 2 - 25 unit subcut TIDAC Qty: 15 3RF finasteride [Proscar] 5 mg tablet 5 mg PO DAILY 90 Days Qty: 90 1RF furosemide 40 mg tablet 40 mg PO DAILY PRN (Reason: edema) 30 Days Qty: 30 3RF carvedilol 6.25 mg tablet 6.25 mg PO BID 30 Days Qty: 60 3RF Rx Instructions: must administer with a meal/food clopidogrel 75 mg tablet 75 mg PO DAILY 30 Days Qty: 30 3RF ezetimibe [Zetia] 10 mg tablet 10 mg PO DAILY Qty: 30 3RF midodrine 10 mg tablet 10 mg PO DAILY PRN (Reason: low blood pressure) 30 Days Qty: 60 3RF Rx Instructions: do not give last dose of day after 6PM or within 4 hrs of bedtime pantoprazole 40 mg tablet,delayed release (DR/EC) 40 mg PO DAILY Qty: 30 3RF Farxiga 10 mg tablet 10 mg PO DAILY 30 Days Qty: 30 3RF atorvastatin 80 mg tablet 80 mg PO BEDTIME 30 Days Qty: 30 3RF aspirin [Adult Aspirin Regimen] 81 mg tablet,delayed release (DR/EC) 81 mg PO DAILY 30 Days Qty: 30 3RF ferrous sulfate 325 mg (65 mg iron) tablet,delayed release (DR/EC) 325 mg PO DAILY
--- NOTE | 2023-08-25 15:02 | ECG_ITS ---
Test Reason : anemia, dizzy Blood Pressure : / mmHG Vent. Rate : 067 BPM Atrial Rate : 067 BPM P-R Int : 238 ms QRS Dur : 122 ms QT Int : 448 ms P-R-T Axes : 061 -44 124 degrees QTc Int : 473 ms Atrial-sensed ventricular-paced rhythm with prolonged AV conduction Abnormal ECG When compared with ECG of 08-JAN-2023 11:36, Premature supraventricular complexes are no longer Present Referred By: Mandi Fuentes Electronically Signed By:Sy Vickers
[2023-08-25 15:27] LABS: MANUAL DIFF FLAG NO
[2023-08-25 15:32] LABS: Basophils Percent Auto 1.2 % (0-2); Eosinophils Absolute Auto 0.1 X10*3/uL (0.0-0.4); Eosinophils Percent Auto 2.1 % (0-4); Hematocrit 22.4 % (42.0-52.0); Imm Gran Abs Auto 0.01 X10*3/uL (0.00-0.03); Imm Gran Pct Auto 0.3 % (0.0-0.4); Lymphocytes Absolute Auto 0.3 X10*3/uL (1.2-4.9); Lymphocytes Percent Auto 9.8 % (20-40); Mean Corpuscular HGB Conc 29.5 g/dl (31.0-36.0); Mean Corpuscular Hemoglobin 25.6 pg (27.0-33.0); Mean Corpuscular Volume 86.8 fL (80.0-98.0); Mean Platelet Volume 10.4 fL (9.4-12.4); Monocytes Absolute Auto 0.4 X10*3/uL (0.1-1.2); Monocytes Percent Auto 12.5 % (2-11); Neutrophils Absolute Auto 2.4 x10*3/uL (2.0-8.3); Neutrophils Percent Auto 74.1 % (45-73); Platelet Count 111 X10*3/uL (160-400); Red Blood Count 2.58 X10*6/uL (4.60-5.80); Red Cell Distribution Width 17.2 % (11.0-16.0); White Blood Count 3.3 X10*3/uL (4.8-10.8)
[2023-08-25 15:35] LABS: Hemoglobin 6.6 g/dl (14.0-18.0)
[2023-08-25 15:43] LABS: INTERNATIONAL NORM RATIO 1.2 (0.9-1.1); Prothrombin Time 14.4 SEC (11.1-13.3)
[2023-08-25 15:46] LABS: Partial Thromboplastin Time 28.8 SEC (26.0-36.4)
[2023-08-25 15:53] LABS: Alanine Aminotransferase 30 U/L (0-40); Albumin Level 3.3 g/dL (3.5-5.0); Alkaline Phosphatase 181 U/L (39-117); Anion Gap 12 (12-20); Aspartate Amino Transferase 46 U/L (5-37); Bilirubin Direct 0.3 mg/dL (0.0-0.5); Bilirubin Total 0.4 mg/dL (0.0-1.0); Blood Urea Nitrogen 53 mg/dL (9-16); Calcium 8.6 mg/dL (8.4-10.2); Carbon Dioxide 23 mmol/L (22-29); Chloride 111 mmol/L (96-108); Creatinine Clr Calc Pharmacy 41.7; Estimated Glomerular Filt Rate 48; Glucose Random 126 mg/dL (60-115); Magnesium 2.5 mg/dL (1.6-2.6); Potassium 4.1 mmol/L (3.3-5.1); Sodium 142 mmol/L (135-145); Total Protein 6.5 g/dL (6.5-8.0)
[2023-08-25 17:46] LABS: OBS Int Ctl Valid YES; OBS1 POSITIVE (NEGATIVE)
[2023-08-25] MEDS: iohexoL 350 MG/ML 100 ML INFUS..BTL 85 ML IV (18:17)
--- NOTE | 2023-08-25 18:21 | PC.NURSE ---
called blood bank to check in as unable to view type and screen results. inquiring about when available
--- NOTE | 2023-08-25 18:22 | PC.NURSE ---
reggie aiken in blood bank for type and screen results
--- NOTE | 2023-08-25 18:30 | PC.NURSE ---
md valdez obtained consent at the bedside at this time. tech going to get blood
--- NOTE | 2023-08-25 18:56 | PC.NURSE ---
blood began w witness sedrick. no distress. resting. calm, coop. vss.
[2023-08-25 19:30] LABS: Glucose, Whole Blood 82 mg/dL (60-115)
[2023-08-25 19:44] LABS: Appearance Urine Clear; Color Urine Yellow; Glucose Urine UA 500 mg/dL (Negative); Leukocyte Esterase Urine Negative (Negative); Nitrite Urine Negative (Negative); PH 5.5 (5.0-9.0); Urine Blood Negative (Negative); Urine Ketones Negative (Negative); Urine Protein Negative (Neg-Trace)
--- NOTE | 2023-08-25 19:48 | MHC.EDTECH ---
Patient given dinner tray
--- NOTE | 2023-08-25 19:52 | MHC.EDTECH ---
Patient inc/ patient changed and repositioned
[2023-08-25] MEDS: Pantoprazole Sodium 40 MG/10 ML VIAL 80 MG IVPUSH (20:12)
[2023-08-25] MEDS: Octreotide Acetate 100 MCG/ML AMPUL 50 MCG IVPUSH (20:13)
[2023-08-25] MEDS: Octreotide Acetate 500 MCG in 0.9 % Sodium Chloride 500 ML 25.05 MCG IVCONT (20:17)
--- NOTE | 2023-08-25 21:02 | PHA.MEDREC ---
Pharmacy Consult ? Medication Reconciliation Pharmacy has completed the medication reconciliation. Patient had list of medications with him. Report Novolog SSI with minim 22 units if BG > 150. Patient get ABX infusion of ceftriaxone. Patient did not know dose, but reported it is infused BID. Dose most likey 1 g Q12H but will have an RPH confirm in the AM. Pat Gar, BimalD
--- NOTE | 2023-08-25 22:02 | P.HPHOSP_ITS ---
History of Present Illness Date of Service: 08/25/23 Attending physician on admission: Austin Warner Chief Complaint: anemia 78-year-old male with history of hepatic cirrhosis complicated by esophageal varices and ascites, insulin-dependent type 2 diabetes, diabetic 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, hypertension, hyperlipidemia, history of prostate cancer, ANUJA on CPAP, chronic iron deficiency anemia, s/p bioprosthetic TAVR, CAD on DAPT, h/o endocarditis wtih PICC line in place on IV ceftriaxone and amoxicillin, s/p pacemaker presented to the ED earlier today for evaluation of anemia at the recommendation of his PCP. Per the patient, he had labs done through his [facility] and received a call from [facility] that his hemoglobin was low and should present to the ED. He denies any symptoms such as shortness of breath, chest pain, lightheadedness, fatigue. Patient denies any abdominal pain, nausea, vomiting, diarrhea, constipation, melena, hematochezia, hematemesis, hematuria He states he did have mechanical fall 3 days ago after tripping on his steps and fell down 3 stairs. Denies any head strike or loss of consciousness. He has had pain in the left upper extremity since with limited range of motion however did not seek medical treatment for this. On arrival, vitals stable though patient mildly hypertension on admission with BP 146/55. He is pancytopenic with severe anemia with H/H 6.6/22.4%, platelets 111. PT 14.4, INR 1.2, PTT 28.8. Renal function baseline, electrolyte levels normal. Hepatic function baseline. Urinalysis unremarkable. Stool occult blood positive. CT of the left humerus shows a comminuted slightly impacted fracture of left humeral neck and head with associated shoulder joint effusion and associated soft tissue hematoma. EKG shows atrial sensed ventricular paced rhythm with prolonged AV leeanne conduction, rate 67, no ST/T-wave abnormalities. In the ED, transfused 2 units packed red blood cells, IV PPI, octreotide. Review of Systems 2 Review of Systems: General: No fevers, malaise, unintentional weight loss HEENT: No blurred vision, diplopia. No sore throat, nasal congestion, rhinorrhea, sinus pain, ear pain Cardiovascular: No chest pain, palpitations, or leg edema Respiratory: No shortness of breath, wheezing, cough GI: No abdominal pain, nausea, vomiting, diarrhea, constipation, melena, hematochezia : No dysuria, hematuria, increased urinary frequency, decreased urinary output MSK: No myalgia, back pain. +pain LUE Neuro: No headaches, weakness, paresthesias Skin: No rashes or lesions [facility] Medical History History of prostate cancer Acute lower gastrointestinal bleeding COVID-19 vaccine series completed Hypertension Dyslipidemia Diabetic nephropathy associated with type 2 diabetes mellitus Diabetic 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 associated with type 2 diabetes mellitus MCFP (current) use of insulin Diabetes type 2, uncontrolled Varices of esophagus determined by endoscopy Esophageal varices without bleeding KOEHLER (dyspnea on exertion) Chronic fatigue Iron deficiency anemia CAD (coronary artery disease) ANUJA on CPAP Prostate cancer Spinal stenosis On beta kayy at home IBS (irritable colon syndrome) Aortic stenosis HTN (hypertension) DMII (diabetes mellitus, type 2) Polyneuropathy GERD (gastroesophageal reflux disease) Family History Father CVD (cardiovascular disease) Past heart attack Mother CVD (cardiovascular disease) Brain cancer Heart problem Daughter Breast cancer Sister Breast cancer Son Alive and well Family/Other Myocardial infarction Liver cancer Surgical History H/O cataract extraction Hx of endoscopy History of colonoscopy Hx of esophagogastroduodenoscopy Hx of colonoscopy History of surgery History of transurethral resection of prostate History of surgery History of heart artery stent Social History Household Members: Spouse Household Members Other:: Myesha Housing: House Are you a primary healthcare marketer to a significant other at home: No Do you presently have visiting nurse or other home services: No Alcohol intake: never Patient Tobacco Use Status: Never used Tobacco Smoked in Last 30 Days: No e-Cigarette/Vaping Use: Never Used Second Hand Smoke Exposure: No Use of substances other than those prescribed or required for medical reasons: No Advance Directives: No Advance Directives Information Provided: No service: Yes Current occupational status: retired Cognitive needs: No Hearing needs: No Vision needs: Yes Meds Allergies Allergy/AdvReac Type Severity Reaction Status Date / Time KARL Inhibitors Allergy Severe Angioedema Verified 08/25/23 14:56 dextran 40 [DEXTRAN 40] Allergy Intermediate tachycardia Verified 08/25/23 14:56 latex [LATEX] Allergy Mild BLISTERS Verified 08/25/23 14:56 lisinopril [From Zestril] Allergy Mild Unknown Verified 08/25/23 14:56 Iodinated Contrast Media Allergy Unknown UNKNOWN Verified 08/25/23 14:56 [CONTRAST,IV] Active Medications: Current Medications Acetaminophen (Acetaminophen 325 Mg Tablet) 650 mg PO Q6H PRN PRN Reason: Pain, Mild (Pain Scale 1-3) Alprazolam (Alprazolam 0.5 Mg Tablet) 0.5 mg PO BID PRN PRN Reason: Anxiety Atorvastatin Calcium (Atorvastatin Calcium 80 Mg Tablet) 80 mg PO BEDTIME PANFILO Bethanechol Chloride (Bethanechol Chloride 25 Mg Tablet) 25 mg PO BID PANFILO Bumetanide (Bumetanide 1 Mg Tablet) 1 mg PO DAILY PANFILO; Protocol Carvedilol (Carvedilol 6.25 Mg Tablet) 6.25 mg PO BID PANFILO; Protocol Cyanocobalamin (Cyanocobalamin (Vitamin B-12) 1,000 Mcg Tablet) 1,000 mcg PO BEDTIME PANFILO Dextrose (Dextrose 50 % 25 Gm/50 Ml Syringe) 25 gm IVPUSH Q15M PRN; Protocol PRN Reason: per Hypoglycemia Standing Ord. Ezetimibe (Ezetimibe 10 Mg Tablet) 10 mg PO DAILY PANFILO Finasteride (Finasteride 5 Mg Tablet) 5 mg PO DAILY PANFILO Furosemide (Furosemide 40 Mg Tablet) 40 mg PO DAILY PRN; Protocol PRN Reason: edema Gabapentin (Gabapentin 400 Mg Capsule) 400 mg PO BID [facility] Glucose (Glucose Gel 15 Gm Gel..Gram.) 15 gm PO Q15M PRN; Protocol PRN Reason: per Hypoglycemia Standing Ord. Octreotide Acetate 500 mcg/ (Sodium Chloride) 501 mls @ 25.05 mls/hr IVCONT .Q20H [facility] Last Admin: 08/25/23 20:17 Dose: 25 mcg/hr, 25.05 mls/hr Insulin Human Lispro (Insulin Lispro 100 Unit/Ml 3 Ml Vial) 0 unit SUBCUT QIDACHS PANFILO; Protocol Midodrine (Midodrine Hcl 10 Mg Tablet) 10 mg PO DAILY PRN PRN Reason: low blood pressure Non-Formulary Medication (Ferrous Sulfate) 325 mg PO DAILY [facility] Non-Formulary Medication (Folic Acid) 0.8 mg PO DAILY [facility] Non-Formulary Medication (Insulin Degludec [Tresiba Flextouch U-200]) 45 unit SUBCUT BEDTIME [facility] Non-Formulary Medication (Pantoprazole) 40 mg PO DAILY [facility] Non-Formulary Medication (Dapagliflozin Propanediol [Farxiga]) 10 mg PO DAILY [facility] Ondansetron HCl (Ondansetron Hcl 4 Mg/2 Ml Vial) 4 mg IVPUSH Q8H PRN PRN Reason: Nausea and Vomiting Senna (Sennosides 8.6 Mg Tablet) 17.2 mg PO BEDTIME PRN PRN Reason: Constipation Sodium Chloride (0.9 % Sodium Chloride Flush 3 Ml Syringe) 3 ml IVFLUSH QSHIFT [facility] Spironolactone (Spironolactone 25 Mg Tablet) 100 mg PO DAILY [facility]; Protocol Tamsulosin HCl (Tamsulosin Hcl 0.4 Mg Capsule) 0.4 mg PO DAILY [facility] Home Medications Medication Instructions Recorded Confirmed Last Taken Type cyanocobalamin (vitamin B-12) 500 1,000 mcg PO BEDTIME 12/29/22 08/25/23 08/24/23 History mcg tablet ferrous sulfate 325 mg (65 mg 325 mg PO DAILY 04/29/23 08/25/23 08/25/23 History iron) tablet,delayed release bumetanide 1 mg tablet 1 mg PO DAILY 08/25/23 08/25/23 08/25/23 History ceftriaxone 10 gram solution for 2 g IV Q12H 08/25/23 08/25/23 Unknown History injection gabapentin 400 mg capsule 400 mg PO BID 08/25/23 08/25/23 08/25/23 History insulin aspart U-100 100 unit/mL 22 unit subcut TIDAC PRN BG > 150 08/25/23 08/25/23 Unknown History (3 mL) subcutaneous pen (Novolog FlexPen U-100 Insulin aspart) spironolactone 100 mg tablet 100 mg PO DAILY 08/25/23 08/25/23 08/25/23 History Physical Exam 2 Vital Signs and Narrative: Vital Signs: Last Vital Signs Temp 97.6 F 08/25/23 21:56 Pulse 67 08/25/23 21:56 Resp 15 08/25/23 21:56 BP 146/55 H 08/25/23 21:56 Pulse Ox 100 08/25/23 16:00 O2 Del Method Room Air 08/25/23 16:00 BMI result Body Mass Index 27.3 Constitutional - Awake and Alert, No apparent distress Eyes - PERRLA, EOMI Cardiovascular - S1S2, RRR, 3+ BLE edema Respiratory - Normal lung expansion, Normal respiratory effort, No respiratory distress, CTA bilaterally Gastrointestinal - NT, moderate distension; +BS; No rebound or guarding Extremities - no calf tenderness bilaterally, no swelling Musculoskeletal - ttp proximal left humerus with guarding and significant ecchymosis to the left upper arm Skin - Warm/Dry Neurological - Alert & oriented x3, CN II-XII in tact, 5/5 safety assistant strength BLE Psychological - Appropriate affect Results Labs 08/25/23 15:21 08/25/23 15:21 Labs: Laboratory Results - last 24 hr 08/25/23 08/25/23 08/25/23 15:21 17:31 19:20 MCV 86.8 MCH 25.6 L MCHC 29.5 L RDW 17.2 H Plt Count 111 L MPV 10.4 Immature Gran % (Auto) 0.3 Neut % (Auto) 74.1 H Lymph % (Auto) 9.8 L Coal % (Auto) 12.5 H Eos % (Auto) 2.1 Baso % (Auto) 1.2 Lymph # (Auto) 0.3 L Coal # (Auto) 0.4 Eos # (Auto) 0.1 Baso # (Auto) 0.0 Abs Immat Gran (auto) 0.01 Absolute Neuts (auto) 2.4 Absolute Nucleated RBC 0.000 Nucleated RBC % (auto) 0.0 PT 14.4 H INR 1.2 H APTT 28.8 Anion Gap 12 Estim Creat Clear Calc 41.7 Estimated GFR 48 POC Glucose Random Glucose 126 H Calcium 8.6 Magnesium 2.5 Total Bilirubin 0.4 Direct Bilirubin 0.3 AST 46 H ALT 30 Alkaline Phosphatase 181 H Total Protein 6.5 Albumin 3.3 L Urine Color Yellow Urine Appearance Clear Urine pH 5.5 Ur Specific [place] 1.010 Urine Protein Negative Urine Glucose (UA) 500 H Urine Ketones Negative Urine Blood Negative Urine Nitrite Negative Ur Leukocyte Esterase Negative Stool Occult Blood POSITIVE Blood Type A Positive Antibody Screen NEGATIVE Crossmatch See Detail 08/25/23 19:25 MCV MCH MCHC RDW Plt Count MPV Immature Gran % (Auto) Neut % (Auto) Lymph % (Auto) Coal % (Auto) Eos % (Auto) Baso % (Auto) Lymph # (Auto) Coal # (Auto) Eos # (Auto) Baso # (Auto) Abs Immat Gran (auto) Absolute Neuts (auto) Absolute Nucleated RBC Nucleated RBC % (auto) PT INR APTT Anion Gap Estim Creat Clear Calc Estimated GFR POC Glucose 82 Random Glucose Calcium Magnesium Total Bilirubin Direct Bilirubin AST ALT Alkaline Phosphatase Total Protein Albumin Urine Color Urine Appearance Urine pH Ur Specific [place] Urine Protein Urine Glucose (UA) Urine Ketones Urine Blood Urine Nitrite Ur Leukocyte Esterase Stool Occult Blood Blood Type Antibody Screen Crossmatch Imaging Radiologist's Impressions: Impressions Elbow X-Ray 08/25/23 16:10 IMPRESSION: No acute fracture or subluxation of the left elbow. Humerus X-Ray 08/25/23 16:10 IMPRESSION: 1. Impacted fracture of the left humeral neck-see left shoulder x-ray report. Shoulder X-Ray 08/25/23 16:10 IMPRESSION: Impacted subcapital fracture of the left humeral neck. 2. Low-lying humeral head, either on the basis of rotator cuff injury or intra-articular hemarthrosis. Humerus CT 08/25/23 18:27 Impression: Comminuted slightly impacted fracture of the left humeral neck and head with associated shoulder joint effusion and associated soft tissue hematoma. I do not appreciate any obvious contrast extravasation in the soft tissues. Assessment and Plan (1) GI bleed: Status: Acute (2) Anemia: Status: Acute (3) Comminuted left humeral fracture: Status: Acute Plan 78-year-old male with history of hepatic cirrhosis complicated by esophageal varices and ascites, insulin-dependent type 2 diabetes, diabetic 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, hypertension, hyperlipidemia, history of prostate cancer, ANUJA on CPAP, chronic iron deficiency anemia, s/p bioprosthetic TAVR, CAD on DAPT, h/o endocarditis wtih PICC line in place on IV ceftriaxone and amoxicillin, s/p pacemaker admitted for acute blood loss anemia secondary to suspected GI bleed. # acute on chronic blood loss anemia secondary to suspected GI bleed -H/H 6.6/22.4%, baseline appears to be around 8.5/28.6% though appears to have been steadily dropping over the last few months -stool occult blood positive -iron studies pending, continue ferrous sulfate -IV PPI, octreotide -he is on ceftriaxone for endocarditis, continue for SBP prophylaxis -transfuse 2 units packed red blood cells in the ED -gastroenterology consult -monitor on telemetry #acute L humerus fx with hematoma without extravasation -ortho consult -hold dapt -pain management -immobilizer # hepatic cirrhosis complicated by esophageal varices, ascites -continue p.o. diuretics. Give single dose IV Lasix 40 mg x 1 due to fluid administration and significant bilateral lower extremity edema -low-sodium diet -GI consult as above # insulin-dependent type 2 diabetes -dose adjusted basal insulin -POC glucose, diabetic diet, Humalog on sliding scale # CAD/HLD -hold DAPT, last cardiac cath with PCI 01/2022 -continue statin, bb, zetia # orthostatic hypotension -continue midodrine p.r.n. # BPH -continue tamsulosin # diabetic 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 -continue gabapentin # ANUJA on CPAP -CPAP bedtime #Acute endocarditis with H/O strep bacteremia -PICC RUE -Continue IV ceftriaxone 2 g b.i.d. -for [facility] records, patient should also be on amoxicillin 1000 mg t.i.d. to be changed to amoxicillin 500 mg b.i.d. on 08/29. However, patient denies taking amoxicillin. Pharmacy to call to confirm this a.m. Quality Stroke Does the patient have a stroke diagnosis?: No VTE Prior VTE?: No VTE Risk Level:: Medical - moderate - high VTE Device Contraindication: Treatment Not Indicated VTE Drug Contraindication: N/A - Med Ordered
[2023-08-25] MEDS: Gabapentin 400 MG CAPSULE PO (22:33)
[2023-08-25] MEDS: Furosemide 40 MG/4 ML VIAL IVPUSH (22:33)
[2023-08-25] MEDS: carvediloL 6.25 MG TABLET PO (22:33)
[2023-08-25] MEDS: Acetaminophen 325 MG TABLET 650 MG PO (22:36)
[2023-08-25 23:03] LABS: Iron 344 mcg/dL (45-160); Percent Iron Saturation 93 % (15-50); Total Iron Binding Capacity 369 mcg/dL (228-428); Unsaturated Iron Binding < 25 ug/dL
[2023-08-25 23:15] LABS: Ferritin 61 ng/mL (20-250)
[2023-08-26] VITALS (13 sets, daily range): BP systolic 111–151; BP diastolic 50–60; PULSE 58–73; RESP 16–20; TEMP 36.3–37.1; O2SAT 95–99
[2023-08-26] MEDS: 0.9 % Sodium Chloride Flush 3 ML SYRINGE IVFLUSH ×3 (01:07→14:24)
[2023-08-26] MEDS: cefTRIAXone sodium 2 GM in 0.9 % Sodium Chloride 50 ML IV ×3 (01:07→22:28)
[2023-08-26] MEDS: Acetaminophen 325 MG TABLET 650 MG PO (05:16)
[2023-08-26] MEDS: Morphine Sulfate 2 MG/ML CARTRIDGE IVPUSH (05:23)
--- NOTE | 2023-08-26 05:44 | MHC.PIE ---
Addendum entered by Erasmo Akins RN 08/26/23 06:09: Dr. Warner at bedside with patient. No new orders given Original Note: Patient recent humerus fracture repair. Awoke complaining of 10/10 left arm pain into the left chest. Patient reports the pain was worsened with arm position change. No shortness of breath. No other pain besides Left arm and Left chest. Alert and oriented x4. Chest pain is reproducible with palpation. Previous negative EKG done 08/25. Dr. Warner notified. Ordered IV morphine for analgesia. This nurse spoke with patient for several minutes following administration. Patient reports adequate pain relief. Patient calm, not in distress. Call allen in reach, patient is navigating television himself. Care plan ongoing.
--- NOTE | 2023-08-26 06:42 | PM.GICN ---
History of Present Illness Data of Consult Service Date: 08/26/23 Requesting physician: Mallory Madrigal Primary Care Provider: Roberto Carlos Cisneros PA-C HPI Reason for consult: anemia 78-year-old male with history of hepatic cirrhosis complicated by esophageal varices and ascites, insulin-dependent type 2 diabetes, diabetic 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, hypertension, hyperlipidemia, history of prostate cancer, ANUJA on CPAP, chronic iron deficiency anemia, s/p bioprosthetic TAVR, CAD on DAPT, h/o endocarditis wtih PICC line in place on IV ceftriaxone and amoxicillin, s/p pacemaker who I am seeing for assessment for anemia. Patient was referred to the ED for abn labs by his PCP after he was found to be anemic. He denies any symptoms such as shortness of breath, chest pain, lightheadedness, fatigue. he also denies abdominal pain, nausea, vomiting, diarrhea, constipation, melena, hematochezia, hematemesis, hematuria. Of note patient did have a mechanical fall 3-4 d ago and tripped and was c/o severe left shoulder pain with reduced ROM and swelling with extensive bruising of the upper arm. An XR in the ED did reveal a humeral fracture. He has been transfused 2 units of PRBC. Labs: Pancytopenia with severe anemia with H/H 6.6/22.4% (baseline HGB: usu around 9 g/dl) , platelets 111. PT 14.4, INR 1.2, PTT 28.8. Renal function baseline, electrolyte levels normal. Hepatic function baseline. Urinalysis unremarkable IMAGING: CT of the left humerus shows a comminuted slightly impacted fracture of left humeral neck and head with associated shoulder joint effusion and associated soft tissue hematoma. Prior Endoscopies: EGD 04/30/21- PHG, variceal banding, gastric nodule colonoscopy- radiation proctitis, polyps, diverticulosis Review of Systems Review of Systems: Constitutional : No Weight loss, No Fever, No Chills ENT/Mouth : No sore throat, No Rhinorrhea Eyes: No Swelling, No Redness Cardiovascular : No Chest Pain, No SOB, No Edema Respiratory : No Cough, No Sputum, No Wheezing Gastrointestinal : see HPI Genitourinary : NO Dysuria, No Urinary Frequency, No Hematuria, No Urgency Musculoskeletal : + joint pain, No Myalgias, No Joint Swelling Skin : No Skin Lesions, No rash Neuro : + Weakness, No Numbness, No Dizziness, No Headache Psych : No Anxiety/Panic, No Depression Heme/Lymph: No Bruising, No Lymphadenopathy Endocrine : No Polyuria, No Polydipsia All other systems reviewed and are negative. [facility] Past Medical History Medical History History of prostate cancer Acute lower gastrointestinal bleeding COVID-19 vaccine series completed Hypertension Dyslipidemia Diabetic nephropathy associated with type 2 diabetes mellitus Diabetic 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 associated with type 2 diabetes mellitus FCI (current) use of insulin Diabetes type 2, uncontrolled Varices of esophagus determined by endoscopy Esophageal varices without bleeding KOEHLER (dyspnea on exertion) Chronic fatigue Iron deficiency anemia CAD (coronary artery disease) ANUJA on CPAP Prostate cancer Spinal stenosis On beta kayy at home IBS (irritable colon syndrome) Aortic stenosis HTN (hypertension) DMII (diabetes mellitus, type 2) Polyneuropathy GERD (gastroesophageal reflux disease) Family History Family History Father CVD (cardiovascular disease) Past heart attack Mother CVD (cardiovascular disease) Brain cancer Heart problem Daughter Breast cancer Sister Breast cancer Son Alive and well Family/Other Myocardial infarction Liver cancer Surgical History Surgical History H/O cataract extraction Hx of endoscopy History of colonoscopy Hx of esophagogastroduodenoscopy Hx of colonoscopy History of surgery History of transurethral resection of prostate History of surgery History of heart artery stent Social History Social History Household Members: Spouse Household Members Other:: Myesha Housing: House Are you a primary personal care service provider to a significant other at home: No Do you presently have visiting nurse or other home services: Yes Alcohol intake: never Patient Tobacco Use Status: Never used Tobacco e-Cigarette/Vaping Use: Never Used Second Hand Smoke Exposure: No service: No Current occupational status: retired Cognitive needs: No Hearing needs: No Vision needs: Yes Meds Allergies Allergy/AdvReac Type Severity Reaction Status Date / Time KARL Inhibitors Allergy Severe Angioedema Verified 08/25/23 14:56 dextran 40 [DEXTRAN 40] Allergy Intermediate tachycardia Verified 08/25/23 14:56 latex [LATEX] Allergy Mild BLISTERS Verified 08/25/23 14:56 lisinopril [From Zestril] Allergy Mild Unknown Verified 08/25/23 14:56 Iodinated Contrast Media Allergy Unknown UNKNOWN Verified 08/25/23 14:56 [CONTRAST,IV] Active Medications: Current Medications Acetaminophen (Acetaminophen 325 Mg Tablet) 650 mg PO Q6H PRN PRN Reason: Pain, Mild (Pain Scale 1-3) Last Admin: 08/26/23 05:16 Dose: 650 mg Alprazolam (Alprazolam 0.5 Mg Tablet) 0.5 mg PO BID PRN PRN Reason: Anxiety Atorvastatin Calcium (Atorvastatin Calcium 80 Mg Tablet) 80 mg PO BEDTIME PANFILO Bethanechol Chloride (Bethanechol Chloride 25 Mg Tablet) 25 mg PO BID PANFIL[facility] Bumetanide (Bumetanide 1 Mg Tablet) 1 mg PO DAILY [facility]; Protocol Carvedilol (Carvedilol 6.25 Mg Tablet) 6.25 mg PO BID [facility]; Protocol Last Admin: 08/25/23 22:33 Dose: 6.25 mg Cyanocobalamin (Cyanocobalamin (Vitamin B-12) 1,000 Mcg Tablet) 1,000 mcg PO BEDTIME [facility] Dextrose (Dextrose 50 % 25 Gm/50 Ml Syringe) 25 gm IVPUSH Q15M PRN; Protocol PRN Reason: per Hypoglycemia Standing Ord. Ezetimibe (Ezetimibe 10 Mg Tablet) 10 mg PO DAILY [facility] Empagliflozin (Empagliflozin 10 Mg Tablet) 10 mg PO DAILY [facility] Ferrous Sulfate (Ferrous Sulfate 324 Mg Tablet.Dr) 324 mg PO DAILY [facility] Finasteride (Finasteride 5 Mg Tablet) 5 mg PO DAILY [facility] Folic Acid (Folic Acid 1 Mg Tablet) 1 mg PO DAILY [facility] Furosemide (Furosemide 40 Mg Tablet) 40 mg PO DAILY PRN; Protocol PRN Reason: edema Gabapentin (Gabapentin 400 Mg Capsule) 400 mg PO BID [facility] Last Admin: 08/25/23 22:33 Dose: 400 mg Glucose (Glucose Gel 15 Gm Gel..Gram.) 15 gm PO Q15M PRN; Protocol PRN Reason: per Hypoglycemia Standing Ord. Octreotide Acetate 500 mcg/ (Sodium Chloride) 501 mls @ 25.05 mls/hr IVCONT .Q20H [facility] Last Admin: 08/25/23 20:17 Dose: 25 mcg/hr, 25.05 mls/hr Ceftriaxone Sodium 2 gm/ (Sodium Chloride) 50 mls @ 100 mls/hr IV Q12H [facility] Last Infusion: 08/26/23 03:40 Dose: Infused Insulin Glargine (Insulin Glargine,Hum.Rec.Anlog 100 Unit/Ml 10 Ml Vial) 31 unit SUBCUT BEDTIME PANFIL[facility] Insulin Human Lispro (Insulin Lispro 100 Unit/Ml 3 Ml Vial) 0 unit SUBCUT QIDACHS [facility]; Protocol Midodrine (Midodrine Hcl 10 Mg Tablet) 10 mg PO DAILY PRN PRN Reason: low blood pressure Ondansetron HCl (Ondansetron Hcl 4 Mg/2 Ml Vial) 4 mg IVPUSH Q8H PRN PRN Reason: Nausea and Vomiting Oxycodone HCl (Oxycodone Hcl Immed Release 5 Mg Tablet) 5 mg PO Q4H PRN PRN Reason: Pain, Severe (Pain Scale 7-10) Senna (Sennosides 8.6 Mg Tablet) 17.2 mg PO BEDTIME PRN PRN Reason: Constipation Sodium Chloride (0.9 % Sodium Chloride Flush 3 Ml Syringe) 3 ml IVFLUSH QSHIFT [facility] Last Admin: 08/26/23 01:07 Dose: 3 ml Spironolactone (Spironolactone 25 Mg Tablet) 100 mg PO DAILY [facility]; Protocol Tamsulosin HCl (Tamsulosin Hcl 0.4 Mg Capsule) 0.4 mg PO DAILY [facility] Home Medications Medication Instructions Recorded Confirmed Last Taken Type cyanocobalamin (vitamin B-12) 500 1,000 mcg PO BEDTIME 12/29/22 08/25/23 08/24/23 History mcg tablet ferrous sulfate 325 mg (65 mg 325 mg PO DAILY 04/29/23 08/25/23 08/25/23 History iron) tablet,delayed release bumetanide 1 mg tablet 1 mg PO DAILY 08/25/23 08/25/23 08/25/23 History ceftriaxone 10 gram solution for 2 g IV Q12H 08/25/23 08/25/23 Unknown History injection gabapentin 400 mg capsule 400 mg PO BID 08/25/23 08/25/23 08/25/23 History insulin aspart U-100 100 unit/mL 22 unit subcut TIDAC PRN BG > 150 08/25/23 08/25/23 Unknown History (3 mL) subcutaneous pen (Novolog FlexPen U-100 Insulin aspart) spironolactone 100 mg tablet 100 mg PO DAILY 08/25/23 08/25/23 08/25/23 History amoxicillin 500 mg capsule 1,000 mg PO TID 08/26/23 08/26/23 Unknown History Physical Exam Vital Signs: Vital Signs: Last Vital Signs Temp 98.0 F 08/26/23 03:48 Pulse 58 08/26/23 03:48 Resp 17 08/26/23 06:17 BP 122/53 L 08/26/23 03:48 Pulse Ox 99 08/26/23 03:48 O2 Del Method CPAP 08/26/23 03:48 BMI result Body Mass Index 27.3 EXAM: GENERAL: The patient is well developed and nontoxic. VITAL SIGNS:see workflow HEENT: Nonicteric sclerae, PERRLA, EOMI. Oropharynx clear. Moist mucous membranes. Conjunctivae appear well perfused. No thyroid mass. CHEST: Chest wall is nontender. HEART: Regular rate and rhythm without murmurs. LUNGS: Clear to auscultation bilaterally. ABDOMEN: Soft, positive bowel sounds, nontender, no organomegaly.no flank tenderness SKIN: No rash, no excessive bruising, petechiae, or purpura. NEUROLOGIC: Cranial nerves II-XII intact without motor/sensory deficit. psych-nml ms; large amnt of bruising left arm and splint on arm Results Labs 08/26/23 06:46 08/26/23 06:46 Labs: Short CBC 08/25/23 Range/Units 15:21 WBC 3.3 L (4.8-10.8) X10*3/uL Hgb 6.6 L* (14.0-18.0) g/dl Hct 22.4 L (42.0-52.0) % Plt Count 111 L (160-400) X10*3/uL BMP 08/25/23 15:21 Sodium 142 Potassium 4.1 Chloride 111 H Carbon Dioxide 23 BUN 53 H Creatinine 1.41 H Calcium 8.6 Liver Function 08/25/23 Range/Units 15:21 Total Bilirubin 0.4 (0.0-1.0) mg/dL Direct Bilirubin 0.3 (0.0-0.5) mg/dL AST 46 H (5-37) U/L ALT 30 (0-40) U/L Alkaline Phosphatase 181 H (39-117) U/L Albumin 3.3 L (3.5-5.0) g/dL Urine 08/25/23 Range/Units 19:20 Urine Color Yellow Urine Appearance Clear Urine pH 5.5 (5.0-9.0) Ur Specific [place] 1.010 (1.005-1.025) Urine Protein Negative (Neg-Trace) mg/dL Urine Glucose (UA) 500 H (Negative) mg/dL Imaging Chest x-ray: My impression: left humeral fracture Assessment and Plan (1) Anemia: Status: Acute Plan 1/ Acute on chronic blood loss anemia, with hx of cirrhosis and portal htn now with bruising and hematoma from recent fall. He has no overt evidence of GI bleeding and liekly source of current blood loss is subq. He does have a hx of varices and polyps in past bt these do not appear to be active at this time PLAN: 1/ iron and PRBC replacement as needed 2/ O/p EGD and colo in 8 weeks, can plan before if overt GI bleeding--can f/u with Dr LAWS 3/ keep on PPi to reduce risk of stress ulceration and gastritis, Procedures Date of Service Date of Service: 08/26/23
[2023-08-26 07:37] LABS: Basophils Percent Auto 1.3 % (0-2); Eosinophils Percent Auto 1.3 % (0-4); Hematocrit 23.5 % (42.0-52.0); Hemoglobin 7.1 g/dl (14.0-18.0); Lymphocytes Absolute Auto 0.3 X10*3/uL (1.2-4.9); Lymphocytes Percent Auto 14.2 % (20-40); MANUAL DIFF FLAG SCAN; Mean Corpuscular HGB Conc 30.2 g/dl (31.0-36.0); Mean Corpuscular Hemoglobin 26.3 pg (27.0-33.0); Monocytes Absolute Auto 0.3 X10*3/uL (0.1-1.2); Monocytes Percent Auto 13.4 % (2-11); Neutrophils Absolute Auto 1.6 x10*3/uL (2.0-8.3); Neutrophils Percent Auto 69.8 % (45-73); Platelet Count 105 X10*3/uL (160-400); Red Cell Distribution Width 16.7 % (11.0-16.0); SCAN SMEAR FLAG 1
[2023-08-26 07:39] LABS: Glucose, Whole Blood 82 mg/dL (60-115)
[2023-08-26 07:43] LABS: White Blood Count 2.3 X10*3/uL (4.8-10.8)
[2023-08-26 07:46] LABS: Anion Gap 10 (12-20); Blood Urea Nitrogen 44 mg/dL (9-16); Calcium 8.1 mg/dL (8.4-10.2); Carbon Dioxide 26 mmol/L (22-29); Chloride 111 mmol/L (96-108); Creatinine Clr Calc Pharmacy 43.6; Estimated Glomerular Filt Rate 51; Glucose Random 91 mg/dL (60-115); Potassium 3.9 mmol/L (3.3-5.1); Sodium 143 mmol/L (135-145)
[2023-08-26 08:25] LABS: SLIDE REVIEW VERIFIED
--- NOTE | 2023-08-26 08:34 | PM.CNOR ---
History of Present Illness HPI Consult date: 08/26/23 Chief complaint: Acute blood loss anemia, GI Bleed Narrative: Mr. Skinner is an 78yo male wioth a H significant for anemia requiring this admission, a recent bacterial infection requiring a PICC line being treated at [facility], DMII, CAD, HTN, GERD, Prostate cancer, and esophageal varicies. He reports that on 08/21/23 he was bringing a small bag of garbage out and when he went to through it in the can he lost his balance and fell landing on the right shoulder. He had immediate pain but did not seek medical attendition right away. He cares for his who has dementia. Roughly three days later he reports he went to an urgent care where x-rays werte obtained and he was found to have a surgical neck fracture of the left humerus. He was placed in a sling. Orthopedics was consulted during his admission for further evaluation and treatment. Review of Systems Review of Systems: Yes all other systems are reviewed and are negative [facility] Past Medical History Medical History History of prostate cancer Acute lower gastrointestinal bleeding COVID-19 vaccine series completed Hypertension Dyslipidemia Diabetic nephropathy associated with type 2 diabetes mellitus Diabetic 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 associated with type 2 diabetes mellitus longterm (current) use of insulin Diabetes type 2, uncontrolled Varices of esophagus determined by endoscopy Esophageal varices without bleeding KOEHLER (dyspnea on exertion) Chronic fatigue Iron deficiency anemia CAD (coronary artery disease) ANUJA on CPAP Prostate cancer Spinal stenosis On beta kayy at home IBS (irritable colon syndrome) Aortic stenosis HTN (hypertension) DMII (diabetes mellitus, type 2) Polyneuropathy GERD (gastroesophageal reflux disease) Family History Family History Father CVD (cardiovascular disease) Past heart attack Mother CVD (cardiovascular disease) Brain cancer Heart problem Daughter Breast cancer Sister Breast cancer Son Alive and well Family/Other Myocardial infarction Liver cancer Surgical History Surgical History H/O cataract extraction Hx of endoscopy History of colonoscopy Hx of esophagogastroduodenoscopy Hx of colonoscopy History of surgery History of transurethral resection of prostate History of surgery History of heart artery stent Social History Social History Household Members: Spouse Household Members Other:: Myesha Housing: House Are you a primary child care aide to a significant other at home: No Do you presently have visiting nurse or other home services: Yes Alcohol intake: never Patient Tobacco Use Status: Never used Tobacco Smoked in Last 30 Days: No e-Cigarette/Vaping Use: Never Used Second Hand Smoke Exposure: No Use of substances other than those prescribed or required for medical reasons: No Currently Displaying Signs/Symptoms of Drug Intoxication Withdrawal: No Have you been hit, kicked, punched, or otherwise hurt by someone within the past year? If so, by whom?: No Do you feel safe in your current relationship?: Yes Is there a partner from a previous relationship who is making you feel unsafe now?: No Are you made to feel afraid or neglected: No Hoahaoism Healthcare Practices: Restorationist Advance Directives: No Advance Directives Information Provided: No Do you have thoughts of harming others: None Do you have a plan to hurt others: No Plan Recently lost weight without trying: No Eating poorly because of decreased appetite: No Nutrition Risks: No Nutritional Risk Poor oral hygiene: No service: Yes Current occupational status: retired Cognitive needs: No Hearing needs: No Vision needs: Yes Meds Allergies Allergy/AdvReac Type Severity Reaction Status Date / Time KARL Inhibitors Allergy Severe Angioedema Verified 08/25/23 14:56 dextran 40 [DEXTRAN 40] Allergy Intermediate tachycardia Verified 08/25/23 14:56 latex [LATEX] Allergy Mild BLISTERS Verified 08/25/23 14:56 lisinopril [From Zestril] Allergy Mild Unknown Verified 08/25/23 14:56 Iodinated Contrast Media Allergy Unknown UNKNOWN Verified 08/25/23 14:56 [CONTRAST,IV] Active Medications: Current Medications Acetaminophen (Acetaminophen 325 Mg Tablet) 650 mg PO Q6H PRN PRN Reason: Pain, Mild (Pain Scale 1-3) Last Admin: 08/26/23 05:16 Dose: 650 mg Alprazolam (Alprazolam 0.5 Mg Tablet) 0.5 mg PO BID PRN PRN Reason: Anxiety Atorvastatin Calcium (Atorvastatin Calcium 80 Mg Tablet) 80 mg PO BEDTIME PANFLIO Bethanechol Chloride (Bethanechol Chloride 25 Mg Tablet) 25 mg PO BID [facility] Bumetanide (Bumetanide 1 Mg Tablet) 1 mg PO DAILY [facility]; Protocol Carvedilol (Carvedilol 6.25 Mg Tablet) 6.25 mg PO BID [facility]; Protocol Last Admin: 08/25/23 22:33 Dose: 6.25 mg Cyanocobalamin (Cyanocobalamin (Vitamin B-12) 1,000 Mcg Tablet) 1,000 mcg PO BEDTIME [facility] Dextrose (Dextrose 50 % 25 Gm/50 Ml Syringe) 25 gm IVPUSH Q15M PRN; Protocol PRN Reason: per Hypoglycemia Standing Ord. Ezetimibe (Ezetimibe 10 Mg Tablet) 10 mg PO DAILY [facility] Empagliflozin (Empagliflozin 10 Mg Tablet) 10 mg PO DAILY [facility] Ferrous Sulfate (Ferrous Sulfate 324 Mg Tablet.Dr) 324 mg PO DAILY [facility] Finasteride (Finasteride 5 Mg Tablet) 5 mg PO DAILY [facility] Folic Acid (Folic Acid 1 Mg Tablet) 1 mg PO DAILY [facility] Furosemide (Furosemide 40 Mg Tablet) 40 mg PO DAILY PRN; Protocol PRN Reason: edema Gabapentin (Gabapentin 400 Mg Capsule) 400 mg PO BID [facility] Last Admin: 08/25/23 22:33 Dose: 400 mg Glucose (Glucose Gel 15 Gm Gel..Gram.) 15 gm PO Q15M PRN; Protocol PRN Reason: per Hypoglycemia Standing Ord. Octreotide Acetate 500 mcg/ (Sodium Chloride) 501 mls @ 25.05 mls/hr IVCONT .Q20H [facility] Last Admin: 08/25/23 20:17 Dose: 25 mcg/hr, 25.05 mls/hr Ceftriaxone Sodium 2 gm/ (Sodium Chloride) 50 mls @ 100 mls/hr IV Q12H [facility] Last Infusion: 08/26/23 03:40 Dose: Infused Insulin Glargine (Insulin Glargine,Hum.Rec.Anlog 100 Unit/Ml 10 Ml Vial) 31 unit SUBCUT BEDTIME [facility] Insulin Human Lispro (Insulin Lispro 100 Unit/Ml 3 Ml Vial) 0 unit SUBCUT QIDACHS [facility]; Protocol Last Admin: 08/26/23 07:45 Dose: Not Given Midodrine (Midodrine Hcl 10 Mg Tablet) 10 mg PO DAILY PRN PRN Reason: low blood pressure Ondansetron HCl (Ondansetron Hcl 4 Mg/2 Ml Vial) 4 mg IVPUSH Q8H PRN PRN Reason: Nausea and Vomiting Oxycodone HCl (Oxycodone Hcl Immed Release 5 Mg Tablet) 5 mg PO Q4H PRN PRN Reason: Pain, Severe (Pain Scale 7-10) Senna (Sennosides 8.6 Mg Tablet) 17.2 mg PO BEDTIME PRN PRN Reason: Constipation Sodium Chloride (0.9 % Sodium Chloride Flush 3 Ml Syringe) 3 ml IVFLUSH QSHIFT [facility] Last Admin: 08/26/23 01:07 Dose: 3 ml Spironolactone (Spironolactone 25 Mg Tablet) 100 mg PO DAILY [facility]; Protocol Tamsulosin HCl (Tamsulosin Hcl 0.4 Mg Capsule) 0.4 mg PO DAILY [facility] Home Medications Medication Instructions Recorded Confirmed Last Taken Type cyanocobalamin (vitamin B-12) 500 1,000 mcg PO BEDTIME 12/29/22 08/25/23 08/24/23 History mcg tablet ferrous sulfate 325 mg (65 mg 325 mg PO DAILY 04/29/23 08/25/23 08/25/23 History iron) tablet,delayed release bumetanide 1 mg tablet 1 mg PO DAILY 08/25/23 08/25/23 08/25/23 History ceftriaxone 10 gram solution for 2 g IV Q12H 08/25/23 08/25/23 Unknown History injection gabapentin 400 mg capsule 400 mg PO BID 08/25/23 08/25/23 08/25/23 History insulin aspart U-100 100 unit/mL 22 unit subcut TIDAC PRN BG > 150 08/25/23 08/25/23 Unknown History (3 mL) subcutaneous pen (Novolog FlexPen U-100 Insulin aspart) spironolactone 100 mg tablet 100 mg PO DAILY 08/25/23 08/25/23 08/25/23 History Physical Exam Vital Signs: Vital Signs: Last Vital Signs Temp 98.0 F 08/26/23 07:27 Pulse 67 08/26/23 07:27 Resp 18 08/26/23 07:27 BP 111/50 L 08/26/23 07:27 Pulse Ox 99 08/26/23 07:27 O2 Del Method Room Air 08/26/23 07:27 BMI result Body Mass Index 27.3 Const: General: cooperative, healthy appearing and no acute distress Resp: Effort & Inspection: normal respiratory effort and able to speak in complete sentences Cardio: Rate: regular rate Peripheral pulses: Peripheral pulses 2+ throughout GI: Palpation (GI): Soft to palpation Skin: Lesions: no lesions Rashes: no rashes Extrem: Other: Left shoulder ecchymosis extending to the elbow mostly over the bicep. Able to perform full wrist flexion and extension. Able to perform finger abduction, adduction, finger cross, okay sign and thumbs up without deficit. Sensation is intact. Radial pulse intact. Results Labs 08/26/23 06:46 08/26/23 06:46 Labs: Abnormal lab results 08/25/23 08/25/23 08/26/23 Range/Units 15:21 19:20 06:46 WBC 3.3 L 2.3 L (4.8-10.8) X10*3/uL RBC 2.58 L 2.70 L (4.60-5.80) X10*6/uL Hgb 6.6 L* 7.1 L (14.0-18.0) g/dl Hct 22.4 L 23.5 L (42.0-52.0) % MCH 25.6 L 26.3 L (27.0-33.0) pg MCHC 29.5 L 30.2 L (31.0-36.0) g/dl RDW 17.2 H 16.7 H (11.0-16.0) % Plt Count 111 L 105 L (160-400) X10*3/uL Neut % (Auto) 74.1 H (45-73) % Lymph % (Auto) 9.8 L 14.2 L (20-40) % Terry % (Auto) 12.5 H 13.4 H (2-11) % Lymph # (Auto) 0.3 L 0.3 L (1.2-4.9) X10*3/uL Absolute Neuts (auto) 1.6 L (2.0-8.3) x10*3/uL PT 14.4 H (11.1-13.3) SEC INR 1.2 H (0.9-1.1) Chloride 111 H 111 H (96-108) mmol/L Anion Gap 10 L (12-20) BUN 53 H 44 H (9-16) mg/dL Creatinine 1.41 H (0.5-1.4) mg/dL Random Glucose 126 H (60-115) mg/dL Calcium 8.1 L (8.4-10.2) mg/dL Iron 344 H (45-160) mcg/dL % Saturation 93 H (15-50) % AST 46 H (5-37) U/L Alkaline Phosphatase 181 H (39-117) U/L Albumin 3.3 L (3.5-5.0) g/dL Urine Glucose (UA) 500 H (Negative) mg/dL Crossmatch See Detail H & H 08/25/23 08/26/23 Range/Units 15:21 06:46 Hgb 6.6 L* 7.1 L (14.0-18.0) g/dl Hct 22.4 L 23.5 L (42.0-52.0) % Coagulation 08/25/23 Range/Units 15:21 INR 1.2 H (0.9-1.1) All other labs normal. Assessment and Plan (1) Anemia: Status: Acute (2) Comminuted left humeral fracture: Status: Acute Sling for comfort Encourage gentle ROM at the elbow hand and wrist May continue to follow in the out patient office after discharge No additional orthopedic intervention needed at this time Procedures Date of Service Date of Service: 08/26/23
--- NOTE | 2023-08-26 09:30 | MHC.CM.PN ---
IMM 08/26. 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 Pt uses a cane and walker. Returning home is the goal, self-care vs with home PT if appropriate. Pt will need [facility] [place] [place] shuttle to transport him home. HCP completed with pt, now on file. PCP: Roberto Carlos TAPIA
--- NOTE | 2023-08-26 09:36 | HE.PHANOTE ---
RE HOME ANTIBIOTICS PATIENT IS ON CEFTRIAXONE 2 grams q12h until 12/15 pm dose AND amox 1000mg tid. Starting 08/29, patient to be on just amoxicillin 500mg BID for lifelong suppression. No more IV
[2023-08-26] MEDS: Gabapentin 400 MG CAPSULE PO ×2 (09:45→22:27)
[2023-08-26] MEDS: Bethanechol Chloride 25 MG TABLET PO ×2 (09:45→22:28)
[2023-08-26] MEDS: Empagliflozin 10 MG TABLET PO (09:45)
[2023-08-26] MEDS: Folic Acid 1 MG TABLET PO (09:45)
[2023-08-26] MEDS: Bumetanide 1 MG TABLET PO (09:45)
[2023-08-26] MEDS: Tamsulosin HCL 0.4 MG CAPSULE PO (09:45)
[2023-08-26] MEDS: Ferrous Sulfate 324 MG TABLET.DR PO (09:45)
[2023-08-26] MEDS: Spironolactone 25 MG TABLET 100 MG PO (09:45)
[2023-08-26] MEDS: Finasteride 5 MG TABLET PO (09:45)
[2023-08-26] MEDS: Ezetimibe 10 MG TABLET PO (09:45)
[2023-08-26] MEDS: carvediloL 6.25 MG TABLET PO ×2 (09:46→22:28)
[2023-08-26] MEDS: oxyCODONE HCl Immed Release 5 MG TABLET PO ×3 (10:45→22:27)
[2023-08-26] MEDS: Amoxicillin 500 MG CAPSULE 1000 MG PO ×3 (10:45→22:28)
[2023-08-26 11:22] LABS: Glucose, Whole Blood 149 mg/dL (60-115)
--- NOTE | 2023-08-26 13:53 | P.PNIM_ITS ---
Subjective Subjective Date of Service: 08/26/23 Interval History: Remains hemodynamically stable overnight. No active bleeding Review of Systems Denies chest pain Denies shortness of breath Denies nausea vomiting diarrhea Denies fever chills Physical Exam 2 Vital Signs: Vital Signs: Last Vital Signs Temp 98.6 F 08/26/23 10:48 Pulse 66 08/26/23 10:48 Resp 17 08/26/23 10:48 BP 130/60 08/26/23 10:48 Pulse Ox 99 08/26/23 07:27 O2 Del Method Room Air 08/26/23 07:27 BMI result Body Mass Index 27.3 Const: Other: Awake alert oriented x3 no acute distress Resp: Other: Clear to auscultation bilaterally no rales rhonchi wheezes Cardio: Other: No S4; positive S1-S2; no S3 murmurs rubs or gallops GI: Other: Soft nontender nondistended normoactive bowel sounds Extrem: Other: No edema bilaterally. Sling to left upper extremity Objective Data Active Medications Acetaminophen (Acetaminophen 325 Mg Tablet) 650 mg PO Q6H PRN PRN Reason: Pain, Mild (Pain Scale 1-3) Last Admin: 08/26/23 05:16 Dose: 650 mg Documented By: RORO Alprazolam (Alprazolam 0.5 Mg Tablet) 0.5 mg PO BID PRN PRN Reason: Anxiety Amoxicillin (Amoxicillin 500 Mg Capsule) 1,000 mg PO TID [facility] Stop: 08/28/23 21:01 Last Admin: 08/26/23 10:45 Dose: 1,000 mg Documented By: DANNY Amoxicillin (Amoxicillin 500 Mg Capsule) 500 mg PO BID [facility] Atorvastatin Calcium (Atorvastatin Calcium 80 Mg Tablet) 80 mg PO BEDTIME [facility] Bethanechol Chloride (Bethanechol Chloride 25 Mg Tablet) 25 mg PO BID [facility] Last Admin: 08/26/23 09:45 Dose: 25 mg Documented By: DANNY Bumetanide (Bumetanide 1 Mg Tablet) 1 mg PO DAILY [facility]; Protocol Last Admin: 08/26/23 09:45 Dose: 1 mg Documented By: DANNY Carvedilol (Carvedilol 6.25 Mg Tablet) 6.25 mg PO BID [facility]; Protocol Last Admin: 08/26/23 09:46 Dose: 6.25 mg Documented By: DANNY Cyanocobalamin (Cyanocobalamin (Vitamin B-12) 1,000 Mcg Tablet) 1,000 mcg PO BEDTIME [facility] Dextrose (Dextrose 50 % 25 Gm/50 Ml Syringe) 25 gm IVPUSH Q15M PRN; Protocol PRN Reason: per Hypoglycemia Standing Ord. Ezetimibe (Ezetimibe 10 Mg Tablet) 10 mg PO DAILY [facility] Last Admin: 08/26/23 09:45 Dose: 10 mg Documented By: DANNY Empagliflozin (Empagliflozin 10 Mg Tablet) 10 mg PO DAILY [facility] Last Admin: 08/26/23 09:45 Dose: 10 mg Documented By: DANNY Ferrous Sulfate (Ferrous Sulfate 324 Mg Tablet.Dr) 324 mg PO DAILY [facility] Last Admin: 08/26/23 09:45 Dose: 324 mg Documented By: DANNY Finasteride (Finasteride 5 Mg Tablet) 5 mg PO DAILY [facility] Last Admin: 08/26/23 09:45 Dose: 5 mg Documented By: DANNY Folic Acid (Folic Acid 1 Mg Tablet) 1 mg PO DAILY [facility] Last Admin: 08/26/23 09:45 Dose: 1 mg Documented By: DANNY Furosemide (Furosemide 40 Mg Tablet) 40 mg PO DAILY PRN; Protocol PRN Reason: edema Gabapentin (Gabapentin 400 Mg Capsule) 400 mg PO BID [facility] Last Admin: 08/26/23 09:45 Dose: 400 mg Documented By: DANNY Glucose (Glucose Gel 15 Gm Gel..Gram.) 15 gm PO Q15M PRN; Protocol PRN Reason: per Hypoglycemia Standing Ord. Octreotide Acetate 500 mcg/ (Sodium Chloride) 501 mls @ 25.05 mls/hr IVCONT .Q20H [facility] Last Admin: 08/25/23 20:17 Dose: 25 mcg/hr, 25.05 mls/hr Documented By: MONTEIR Ceftriaxone Sodium 2 gm/ (Sodium Chloride) 50 mls @ 100 mls/hr IV Q12H [facility] Stop: 08/28/23 23:59 Last Infusion: 08/26/23 10:15 Dose: Infused Documented By: DANNY Insulin Glargine (Insulin Glargine,Hum.Rec.Anlog 100 Unit/Ml 10 Ml Vial) 31 unit SUBCUT BEDTIME [facility] Insulin Human Lispro (Insulin Lispro 100 Unit/Ml 3 Ml Vial) 0 unit SUBCUT QIDACHS [facility]; Protocol Last Admin: 08/26/23 11:35 Dose: Not Given Documented By: DANNY Non-Admin Reason: poc= 149 Midodrine (Midodrine Hcl 10 Mg Tablet) 10 mg PO DAILY PRN PRN Reason: low blood pressure Ondansetron HCl (Ondansetron Hcl 4 Mg/2 Ml Vial) 4 mg IVPUSH Q8H PRN PRN Reason: Nausea and Vomiting Oxycodone HCl (Oxycodone Hcl Immed Release 5 Mg Tablet) 5 mg PO Q4H PRN PRN Reason: Pain, Severe (Pain Scale 7-10) Last Admin: 08/26/23 10:45 Dose: 5 mg Documented By: DANNY Senna (Sennosides 8.6 Mg Tablet) 17.2 mg PO BEDTIME PRN PRN Reason: Constipation Sodium Chloride (0.9 % Sodium Chloride Flush 3 Ml Syringe) 3 ml IVFLUSH QSHIFT [facility] Last Admin: 08/26/23 09:45 Dose: 3 ml Documented By: DANNY Spironolactone (Spironolactone 25 Mg Tablet) 100 mg PO DAILY [facility]; Protocol Last Admin: 08/26/23 09:45 Dose: 100 mg Documented By: DANNY Tamsulosin HCl (Tamsulosin Hcl 0.4 Mg Capsule) 0.4 mg PO DAILY [facility] Last Admin: 08/26/23 09:45 Dose: 0.4 mg Documented By: DANNY Labs 08/26/23 06:46 08/26/23 06:46 Labs: Laboratory Results - last 24 hr 08/25/23 08/25/23 08/25/23 15:21 17:31 19:20 MCV 86.8 MCH 25.6 L MCHC 29.5 L RDW 17.2 H Plt Count 111 L MPV 10.4 Immature Gran % (Auto) 0.3 Neut % (Auto) 74.1 H Lymph % (Auto) 9.8 L [place] % (Auto) 12.5 H Eos % (Auto) 2.1 Baso % (Auto) 1.2 Lymph # (Auto) 0.3 L [place] # (Auto) 0.4 Eos # (Auto) 0.1 Baso # (Auto) 0.0 Abs Immat Gran (auto) 0.01 Absolute Neuts (auto) 2.4 Absolute Nucleated RBC 0.000 Nucleated RBC % (auto) 0.0 Smear Tech's Comments Smear Path Review PT 14.4 H INR 1.2 H APTT 28.8 Anion Gap 12 Estim Creat Clear Calc 41.7 Estimated GFR 48 POC Glucose Random Glucose 126 H Calcium 8.6 Magnesium 2.5 Iron 344 H TIBC 369 % Saturation 93 H Unsat Iron Binding < 25 Ferritin 61 Total Bilirubin 0.4 Direct Bilirubin 0.3 AST 46 H ALT 30 Alkaline Phosphatase 181 H Total Protein 6.5 Albumin 3.3 L Urine Color Yellow Urine Appearance Clear Urine pH 5.5 Ur Specific [place] 1.010 Urine Protein Negative Urine Glucose (UA) 500 H Urine Ketones Negative Urine Blood Negative Urine Nitrite Negative Ur Leukocyte Esterase Negative Stool Occult Blood POSITIVE Blood Type A Positive Antibody Screen NEGATIVE Crossmatch See Detail 08/25/23 08/26/23 08/26/23 19:25 06:46 07:30 MCV 87.0 MCH 26.3 L MCHC 30.2 L RDW 16.7 H Plt Count 105 L MPV 11.0 Immature Gran % (Auto) 0.0 Neut % (Auto) 69.8 Lymph % (Auto) 14.2 L [place] % (Auto) 13.4 H Eos % (Auto) 1.3 Baso % (Auto) 1.3 Lymph # (Auto) 0.3 L [place] # (Auto) 0.3 Eos # (Auto) 0.0 Baso # (Auto) 0.0 Abs Immat Gran (auto) 0.00 Absolute Neuts (auto) 1.6 L Absolute Nucleated RBC 0.000 Nucleated RBC % (auto) 0.0 Smear Tech's Comments VERIFIED Smear Path Review Cancelled PT INR APTT Anion Gap 10 L Estim Creat Clear Calc 43.6 Estimated GFR 51 POC Glucose 82 82 Random Glucose 91 Calcium 8.1 L Magnesium Iron TIBC % Saturation Unsat Iron Binding Ferritin Total Bilirubin Direct Bilirubin AST ALT Alkaline Phosphatase Total Protein Albumin Urine Color Urine Appearance Urine pH Ur Specific [place] Urine Protein Urine Glucose (UA) Urine Ketones Urine Blood Urine Nitrite Ur Leukocyte Esterase Stool Occult Blood Blood Type Antibody Screen Crossmatch 08/26/23 11:07 MCV MCH MCHC RDW Plt Count MPV Immature Gran % (Auto) Neut % (Auto) Lymph % (Auto) [place] % (Auto) Eos % (Auto) Baso % (Auto) Lymph # (Auto) [place] # (Auto) Eos # (Auto) Baso # (Auto) Abs Immat Gran (auto) Absolute Neuts (auto) Absolute Nucleated RBC Nucleated RBC % (auto) Smear Tech's Comments Smear Path Review PT INR APTT Anion Gap Estim Creat Clear Calc Estimated GFR POC Glucose 149 H Random Glucose Calcium Magnesium Iron TIBC % Saturation Unsat Iron Binding Ferritin Total Bilirubin Direct Bilirubin AST ALT Alkaline Phosphatase Total Protein Albumin Urine Color Urine Appearance Urine pH Ur Specific [place] Urine Protein Urine Glucose (UA) Urine Ketones Urine Blood Urine Nitrite Ur Leukocyte Esterase Stool Occult Blood Blood Type Antibody Screen Crossmatch Assessment and Plan (1) GI bleed: Status: Acute (2) Comminuted left humeral fracture: Status: Acute Plan 78-year-old male with history of hepatic cirrhosis complicated by esophageal varices and ascites, insulin-dependent type 2 diabetes, diabetic 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, hypertension, hyperlipidemia, history of prostate cancer, ANUJA on CPAP, chronic iron deficiency anemia, s/p bioprosthetic TAVR, CAD on DAPT, h/o endocarditis wtih PICC line in place on IV ceftriaxone and amoxicillin, s/p pacemaker admitted for acute blood loss anemia secondary to suspected GI bleed. 1.Acute on chronic blood loss anemia secondary to suspected GI bleed -H&H remains low; will transfuse 2 units of packed red blood cells -continue IV PPI, octreotide -GI note reviewed; no acute indication for EGD or colonoscopy at this point -serial CBCs 2.Acute L humerus fx with hematoma without extravasation -ortho note appreciated -continue current therapies -GI feels anemia more likely secondary to hematoma vent GI bleed 3.Hepatic cirrhosis -continue p.o. diuretics. -low-sodium diet -follow clinically 4.Insulin-dependent type 2 diabetes -acceptable control on current therapies -lispro correctional scale -adjust as indicated 5.CAD/HLD -hold DAPT, -continue statin, bb, zetia 6.Acute endocarditis with H/O strep bacteremia -dosing verified as per pharmacy -PICC RUE -Continue IV ceftriaxone 2 g b.i.d. and amoxicillin as per pharmacy Patient requires ongoing hospitalization to follow acute blood loss anemia and need for transfusion. Quality Stroke Does the patient have a stroke diagnosis?: No VTE Prior VTE?: No VTE Risk Level:: Medical - moderate - high VTE Device Contraindication: Treatment Not Indicated VTE Drug Contraindication: N/A - Med Ordered
[2023-08-26 15:41] LABS: Glucose, Whole Blood 196 mg/dL (60-115)
[2023-08-26] MEDS: Insulin Lispro 100 UNIT/ML 3 ML VIAL SUBCUT (16:49)
[2023-08-26] MEDS: Octreotide Acetate 500 MCG in 0.9 % Sodium Chloride 500 ML 25.05 MCG IVCONT (16:49)
[2023-08-26 20:38] LABS: Glucose, Whole Blood 119 mg/dL (60-115)
[2023-08-26] MEDS: Atorvastatin Calcium 80 MG TABLET PO (22:27)
[2023-08-26] MEDS: Cyanocobalamin (Vitamin B-12) 1,000 MCG TABLET 1000 MCG PO (22:28)
[2023-08-26] MEDS: Insulin Glargine,Hum.rec.anlog 100 UNIT/ML 10 ML VIAL 31 UNIT SUBCUT (22:29)
[2023-08-27] VITALS (8 sets, daily range): BP systolic 119–140; BP diastolic 59–66; PULSE 60–69; RESP 18–20; TEMP 36.3–36.9; O2SAT 94–97
--- NOTE | 2023-08-27 01:13 | PC.RT ---
pt refused to go on CPAP for NOC support overnight. Pt instructed to call for RT if he changes his mind. RN aware
[2023-08-27] MEDS: oxyCODONE HCl Immed Release 5 MG TABLET PO ×3 (02:10→21:07)
[2023-08-27] MEDS: Acetaminophen 325 MG TABLET 650 MG PO ×2 (04:09→16:16)
[2023-08-27 06:15] LABS: MANUAL DIFF FLAG NO
[2023-08-27 06:24] LABS: Eosinophils Absolute Auto 0.1 X10*3/uL (0.0-0.4); Eosinophils Percent Auto 1.5 % (0-4); Hematocrit 28.4 % (42.0-52.0); Hemoglobin 9.1 g/dl (14.0-18.0); Imm Gran Abs Auto 0.01 X10*3/uL (0.00-0.03); Imm Gran Pct Auto 0.2 % (0.0-0.4); Lymphocytes Absolute Auto 0.5 X10*3/uL (1.2-4.9); Lymphocytes Percent Auto 12.5 % (20-40); Mean Corpuscular Hemoglobin 27.6 pg (27.0-33.0); Mean Corpuscular Volume 86.1 fL (80.0-98.0); Monocytes Absolute Auto 0.4 X10*3/uL (0.1-1.2); Monocytes Percent Auto 10.5 % (2-11); Neutrophils Percent Auto 74.3 % (45-73); Platelet Count 110 X10*3/uL (160-400); Red Cell Distribution Width 16.3 % (11.0-16.0); White Blood Count 4.1 X10*3/uL (4.8-10.8)
[2023-08-27 06:44] LABS: Alanine Aminotransferase 22 U/L (0-40); Albumin Level 2.7 g/dL (3.5-5.0); Alkaline Phosphatase 140 U/L (39-117); Anion Gap 10 (12-20); Aspartate Amino Transferase 29 U/L (5-37); Bilirubin Total 0.5 mg/dL (0.0-1.0); Blood Urea Nitrogen 43 mg/dL (9-16); Calcium 7.9 mg/dL (8.4-10.2); Carbon Dioxide 24 mmol/L (22-29); Chloride 110 mmol/L (96-108); Creatinine Clr Calc Pharmacy 44.2; Estimated Glomerular Filt Rate 52; Glucose Fasting 64 mg/dL (60-99); Sodium 140 mmol/L (135-145); Total Protein 5.6 g/dL (6.5-8.0)
[2023-08-27 07:20] LABS: Glucose, Whole Blood 59 mg/dL (60-115)
[2023-08-27 07:32] LABS: Glucose, Whole Blood 66 mg/dL (60-115)
[2023-08-27 07:46] LABS: Glucose, Whole Blood 72 mg/dL (60-115)
[2023-08-27 09:10] LABS: Glucose, Whole Blood 119 mg/dL (60-115)
[2023-08-27] MEDS: Gabapentin 400 MG CAPSULE PO ×2 (09:22→21:03)
[2023-08-27] MEDS: Amoxicillin 500 MG CAPSULE 1000 MG PO ×3 (09:22→21:03)
[2023-08-27] MEDS: Bumetanide 1 MG TABLET PO (09:22)
[2023-08-27] MEDS: Empagliflozin 10 MG TABLET PO (09:22)
[2023-08-27] MEDS: carvediloL 6.25 MG TABLET PO ×2 (09:23→21:03)
[2023-08-27] MEDS: Tamsulosin HCL 0.4 MG CAPSULE PO (09:23)
[2023-08-27] MEDS: Spironolactone 25 MG TABLET 100 MG PO (09:23)
[2023-08-27] MEDS: Ezetimibe 10 MG TABLET PO (09:23)
[2023-08-27] MEDS: Ferrous Sulfate 324 MG TABLET.DR PO (09:23)
[2023-08-27] MEDS: Folic Acid 1 MG TABLET PO (09:23)
[2023-08-27] MEDS: cefTRIAXone sodium 2 GM in 0.9 % Sodium Chloride 50 ML IV ×2 (09:23→23:32)
[2023-08-27] MEDS: Finasteride 5 MG TABLET PO (09:23)
[2023-08-27] MEDS: Bethanechol Chloride 25 MG TABLET PO ×2 (09:35→21:03)
[2023-08-27] MEDS: 0.9 % Sodium Chloride Flush 3 ML SYRINGE IVFLUSH (09:37)
[2023-08-27 11:13] LABS: Glucose, Whole Blood 100 mg/dL (60-115)
--- NOTE | 2023-08-27 13:54 | HO.WOUND ---
Wound Consult: Initial 78yr old male admitted to [facility] [place]25/23 21:42? - See progress notes and H&P for detailed history. Wound consult placed for left arm fracture, bruising, and scabs on BLE. Arrival to e Etiology: Measurements: cm x cm x cm Wound Bed: Drainage / Odor: Edges: ? Soniya wound: ? No Induration, Fluctuance or Warmth noted Pain: Goals of Treatment: ? Recommendations: 1. Turn and Reposition every 2 hours and as needed for patient comfort. 2. Off Load all bony prominences with use of pillows and heel boots if needed.? Apply Preventative foams where needed. ? 3. Monitor for incontinence and moisture control, use barrier creams when needed for prevention and treatment. 4. Provide adequate and supplemental nutrition. 5. Order or Continue low air loss mattress. 6. Maintain blood glucose levels per Providers orders. 7. Re-consult wound care Nurse for wound deterioration or wound changes.
--- NOTE | 2023-08-27 13:57 | HO.WOUND ---
Wound Consult: Initial 78yr [place] [facility] [place] 21:42? - See progress notes and H&P for detailed history. Wound consult placed for left arm fracture, bruising, and scabs on BLE. Arrival to bed side pt was agreeable to skin assessment however he reports he is not aware of injuries he has other than bruising. Left arm assessed - in sling - no open wound noted - bruising noted - no warmth, no induraiton and no fluctance noted. No topical interventions needed at this time. BLE - No open wound noted - bruising noted to left toes with two small stable red scabs (less than 0.3cm) - no warmth, no induraiton and no fluctance noted. No topical interventions needed at this time. Re-consult wound care Nurse for wound development.
[2023-08-27 14:33] LABS: Hematocrit 29.5 % (42.0-52.0); Hemoglobin 9.1 g/dl (14.0-18.0)
--- NOTE | 2023-08-27 14:45 | HO.PM.IMPN ---
Subjective Subjective Date of Service: 08/27/23 Interval History: seen and examined this morning follow up for anemia low blood sugar this am no sob, no abdominal pain Review of Systems Review of Systems: Yes all other systems are reviewed and are negative Constitutional Constitutional: Denies chills and Denies fever(s) Cardiovascular Cardiovascular: Denies chest pain and Denies palpitations Endocrine Endocrine: Denies palpitations Physical Exam Vital Signs: Vital Signs: Last Vital Signs Temp 98 F 08/27/23 11:07 Pulse 63 08/27/23 11:57 Resp 18 08/27/23 11:07 BP 119/59 L 08/27/23 11:57 Pulse Ox 97 08/27/23 11:57 O2 Del Method Room Air 08/27/23 11:07 BMI result Body Mass Index 27.3 Const: General: cooperative, comfortable, alert and awake Nutritional Appearance: average body habitus Resp: Effort & Inspection: normal respiratory effort, able to speak in complete sentences, no respiratory distress and no use of accessory muscles Cardio: Rate: regular rate GI: Inspection: No distended Palpation (GI): Soft to palpation and nontender Skin: Other: bruising to left arm Neuro: General: moves all extremities Extrem: Other: LUE in sling RUE PICC Objective Data Active Medications Acetaminophen (Acetaminophen 325 Mg Tablet) 650 mg PO Q6H PRN PRN Reason: Pain, Mild (Pain Scale 1-3) Last Admin: 08/27/23 04:09 Dose: 650 mg Documented By: RORO Alprazolam (Alprazolam 0.5 Mg Tablet) 0.5 mg PO BID PRN PRN Reason: Anxiety Amoxicillin (Amoxicillin 500 Mg Capsule) 1,000 mg PO TID [facility] Stop: 08/28/23 21:01 Last Admin: 08/27/23 09:22 Dose: 1,000 mg Documented By: MELANIE Amoxicillin (Amoxicillin 500 Mg Capsule) 500 mg PO BID [facility] Atorvastatin Calcium (Atorvastatin Calcium 80 Mg Tablet) 80 mg PO BEDTIME [facility] Last Admin: 08/26/23 22:27 Dose: 80 mg Documented By: RORO Bethanechol Chloride (Bethanechol Chloride 25 Mg Tablet) 25 mg PO BID [facility] Last Admin: 08/27/23 09:35 Dose: 25 mg Documented By: MELANIE Bumetanide (Bumetanide 1 Mg Tablet) 1 mg PO DAILY [facility]; Protocol Last Admin: 08/27/23 09:22 Dose: 1 mg Documented By: MELANIE Carvedilol (Carvedilol 6.25 Mg Tablet) 6.25 mg PO BID [facility]; Protocol Last Admin: 08/27/23 09:23 Dose: 6.25 mg Documented By: MELANIE Cyanocobalamin (Cyanocobalamin (Vitamin B-12) 1,000 Mcg Tablet) 1,000 mcg PO BEDTIME [facility] Last Admin: 08/26/23 22:28 Dose: 1,000 mcg Documented By: LAFLAMYuri Dextrose (Dextrose 50 % 25 Gm/50 Ml Syringe) 25 gm IVPUSH Q15M PRN; Protocol PRN Reason: per Hypoglycemia Standing Ord. Ezetimibe (Ezetimibe 10 Mg Tablet) 10 mg PO DAILY [facility] Last Admin: 08/27/23 09:23 Dose: 10 mg Documented By: MELANIE Empagliflozin (Empagliflozin 10 Mg Tablet) 10 mg PO DAILY [facility] Last Admin: 08/27/23 09:22 Dose: 10 mg Documented By: MELANIE Ferrous Sulfate (Ferrous Sulfate 324 Mg Tablet.Dr) 324 mg PO DAILY [facility] Last Admin: 08/27/23 09:23 Dose: 324 mg Documented By: MELANIE Finasteride (Finasteride 5 Mg Tablet) 5 mg PO DAILY [facility] Last Admin: 08/27/23 09:23 Dose: 5 mg Documented By: MELANIE Folic Acid (Folic Acid 1 Mg Tablet) 1 mg PO DAILY [facility] Last Admin: 08/27/23 09:23 Dose: 1 mg Documented By: MELANIE Furosemide (Furosemide 40 Mg Tablet) 40 mg PO DAILY PRN; Protocol PRN Reason: edema Gabapentin (Gabapentin 400 Mg Capsule) 400 mg PO BID [facility] Last Admin: 08/27/23 09:22 Dose: 400 mg Documented By: MELANIE Glucose (Glucose Gel 15 Gm Gel..Gram.) 15 gm PO Q15M PRN; Protocol PRN Reason: per Hypoglycemia Standing Ord. Ceftriaxone Sodium 2 gm/ (Sodium Chloride) 50 mls @ 100 mls/hr IV Q12H [facility] Stop: 08/28/23 23:59 Last Infusion: 08/27/23 10:30 Dose: Infused Documented By: MELANIE Insulin Glargine (Insulin Glargine,Hum.Rec.Anlog 100 Unit/Ml 10 Ml Vial) 31 unit SUBCUT BEDTIME [facility] Last Admin: 08/26/23 22:29 Dose: 31 unit Documented By: RORO Insulin Human Lispro (Insulin Lispro 100 Unit/Ml 3 Ml Vial) 0 unit SUBCUT QIDACHS [facility]; Protocol Last Admin: 08/27/23 11:24 Dose: Not Given Documented By: MELANIE Non-Admin Reason: No Insulin Coverage Midodrine (Midodrine Hcl 10 Mg Tablet) 10 mg PO DAILY PRN PRN Reason: low blood pressure Ondansetron HCl (Ondansetron Hcl 4 Mg/2 Ml Vial) 4 mg IVPUSH Q8H PRN PRN Reason: Nausea and Vomiting Oxycodone HCl (Oxycodone Hcl Immed Release 5 Mg Tablet) 5 mg PO Q4H PRN PRN Reason: Pain, Severe (Pain Scale 7-10) Last Admin: 08/27/23 06:30 Dose: 5 mg Documented By: RORO Senna (Sennosides 8.6 Mg Tablet) 17.2 mg PO BEDTIME PRN PRN Reason: Constipation Sodium Chloride (0.9 % Sodium Chloride Flush 3 Ml Syringe) 3 ml [facility]FLUSH [facility] Last Admin: 08/27/23 09:37 Dose: 3 ml Documented By: MELANIE Spironolactone (Spironolactone 25 Mg Tablet) 100 mg PO DAILY [facility]; Protocol Last Admin: 08/27/23 09:23 Dose: 100 mg Documented By: MELANIE Tamsulosin HCl (Tamsulosin Hcl 0.4 Mg Capsule) 0.4 mg PO DAILY [facility] Last Admin: 08/27/23 09:23 Dose: 0.4 mg Documented By: MELANIE Labs 08/27/23 14:27 08/27/23 05:54 Labs: Laboratory Results - last 24 hr 08/25/23 08/26/23 08/26/23 15:21 15:18 20:27 MCV MCH MCHC RDW Plt Count MPV Immature Gran % (Auto) Neut % (Auto) Lymph % (Auto) [place] % (Auto) Eos % (Auto) Baso % (Auto) Lymph # (Auto) [place] # (Auto) Eos # (Auto) Baso # (Auto) Abs Immat Gran (auto) Absolute Neuts (auto) Absolute Nucleated RBC Nucleated RBC % (auto) Anion Gap Estim Creat Clear Calc Estimated GFR POC Glucose 196 H 119 H Fasting Glucose Calcium Total Bilirubin AST ALT Alkaline Phosphatase Total Protein Albumin Crossmatch See Detail 08/27/23 08/27/23 08/27/23 05:54 07:08 07:28 MCV 86.1 MCH 27.6 MCHC 32.0 RDW 16.3 H Plt Count 110 L MPV 11.0 Immature Gran % (Auto) 0.2 Neut % (Auto) 74.3 H Lymph % (Auto) 12.5 L [place] % (Auto) 10.5 Eos % (Auto) 1.5 Baso % (Auto) 1.0 Lymph # (Auto) 0.5 L [place] # (Auto) 0.4 Eos # (Auto) 0.1 Baso # (Auto) 0.0 Abs Immat Gran (auto) 0.01 Absolute Neuts (auto) 3.0 Absolute Nucleated RBC 0.000 Nucleated RBC % (auto) 0.0 Anion Gap 10 L Estim Creat Clear Calc 44.2 Estimated GFR 52 POC Glucose 59 L* 66 Fasting Glucose 64 Calcium 7.9 L Total Bilirubin 0.5 AST 29 ALT 22 Alkaline Phosphatase 140 H Total Protein 5.6 L Albumin 2.7 L Crossmatch 08/27/23 08/27/23 08/27/23 07:43 09:05 11:06 MCV MCH MCHC RDW Plt Count MPV Immature Gran % (Auto) Neut % (Auto) Lymph % (Auto) [place] % (Auto) Eos % (Auto) Baso % (Auto) Lymph # (Auto) [place] # (Auto) Eos # (Auto) Baso # (Auto) Abs Immat Gran (auto) Absolute Neuts (auto) Absolute Nucleated RBC Nucleated RBC % (auto) Anion Gap Estim Creat Clear Calc Estimated GFR POC Glucose 72 119 H 100 Fasting Glucose Calcium Total Bilirubin AST ALT Alkaline Phosphatase Total Protein Albumin Crossmatch Assessment and Plan (1) Anemia: Status: Acute (2) Comminuted left humeral fracture: Status: Acute Plan 78-year-old male with history of hepatic cirrhosis complicated by esophageal varices and ascites, insulin-dependent type 2 diabetes, diabetic 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, hypertension, hyperlipidemia, history of prostate cancer, ANUJA on CPAP, chronic iron deficiency anemia, s/p bioprosthetic TAVR, CAD on DAPT, h/o endocarditis wtih PICC line in place on IV ceftriaxone and amoxicillin, s/p pacemaker admitted for acute blood loss anemia and mechanical fall # acute on chronic blood loss anemia stool occult blood positive s/p blood transfusion seen by GI - patrice anemia r/t to acute blood loss from hematoma from humerous fracture - may need outpatient scope H/H has remained stable #acute L humerus fx with hematoma due to mechanical fall seen by ortho - sling for comfort, outpatient follow up seen by PT - rec home with services #Acute endocarditis with H/O strep bacteremia (diagnosed and treated at outside hospital) PICC present RUE -Continue IV ceftriaxone 2 g b.i.d. -for [facility] records, patient should also be on amoxicillin 1000 mg t.i.d. to be changed to amoxicillin 500 mg b.i.d. on 08/29. dosing verified by pharmacy # hepatic cirrhosis complicated by esophageal varices, ascites -continue p.o. diuretics. -low-sodium diet # insulin-dependent type 2 diabetes low blood sugar this am, asymptomatic - will decrease dose of Lantus -continue lantus as above (on Tresiba and trulicity at baseline) -POC glucose, diabetic diet, Humalog on sliding scale # CAD/HLD -hold DAPT, last cardiac cath with PCI 01/2022 -continue statin, bb, zetia # orthostatic hypotension -continue midodrine p.r.n. # BPH -continue tamsulosin # diabetic 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 -continue gabapentin # ANUJA on CPAP -CPAP bedtime dvt ppx - mechanical devices attending - dr. Sam dispo - home with services likely tomorrow patient requires ongoing inpatient stay for IV abx, close monitoring of hemaglobin/hematocrit Quality Stroke Does the patient have a stroke diagnosis?: No VTE Prior VTE?: No VTE Risk Level:: Medical - moderate - high VTE Device Contraindication: Treatment Not Indicated VTE Drug Contraindication: N/A - Med Ordered
[2023-08-27 16:21] LABS: Glucose, Whole Blood 122 mg/dL (60-115)
[2023-08-27 20:50] LABS: Glucose, Whole Blood 154 mg/dL (60-115)
[2023-08-27] MEDS: Atorvastatin Calcium 80 MG TABLET PO (21:03)
[2023-08-27] MEDS: Cyanocobalamin (Vitamin B-12) 1,000 MCG TABLET 1000 MCG PO (21:03)
[2023-08-27] MEDS: Insulin Lispro 100 UNIT/ML 3 ML VIAL SUBCUT (21:03)
[2023-08-27] MEDS: Insulin Glargine,Hum.rec.anlog 100 UNIT/ML 10 ML VIAL 26 UNIT SUBCUT (21:05)
[2023-08-28 03:31] VITALS: BP 125/58; PULSE 68; RESP 18; TEMP 36.6; O2SAT 95
[2023-08-28] MEDS: Acetaminophen 325 MG TABLET 650 MG PO (04:19)
[2023-08-28] MEDS: oxyCODONE HCl Immed Release 5 MG TABLET PO (04:19)
[2023-08-28 07:00] LABS: MANUAL DIFF FLAG NO
[2023-08-28 07:07] LABS: Basophils Absolute Auto 0.1 X10*3/uL (0.0-0.2); Eosinophils Absolute Auto 0.1 X10*3/uL (0.0-0.4); Eosinophils Percent Auto 1.9 % (0-4); Hematocrit 30.5 % (42.0-52.0); Hemoglobin 9.5 g/dl (14.0-18.0); Imm Gran Abs Auto 0.03 X10*3/uL (0.00-0.03); Imm Gran Pct Auto 0.5 % (0.0-0.4); Lymphocytes Absolute Auto 0.7 X10*3/uL (1.2-4.9); Lymphocytes Percent Auto 11.3 % (20-40); Mean Corpuscular HGB Conc 31.1 g/dl (31.0-36.0); Mean Corpuscular Hemoglobin 27.3 pg (27.0-33.0); Mean Corpuscular Volume 87.6 fL (80.0-98.0); Mean Platelet Volume 10.2 fL (9.4-12.4); Monocytes Absolute Auto 0.8 X10*3/uL (0.1-1.2); Monocytes Percent Auto 12.8 % (2-11); Neutrophils Absolute Auto 4.2 x10*3/uL (2.0-8.3); Neutrophils Percent Auto 72.5 % (45-73); Platelet Count 123 X10*3/uL (160-400); Red Blood Count 3.48 X10*6/uL (4.60-5.80); Red Cell Distribution Width 16.7 % (11.0-16.0); White Blood Count 5.8 X10*3/uL (4.8-10.8)
[2023-08-28 07:12] VITALS: BP 128/58; PULSE 60; RESP 18; TEMP 36.6; O2SAT 96
[2023-08-28 07:27] LABS: Alanine Aminotransferase 19 U/L (0-40); Albumin Level 2.8 g/dL (3.5-5.0); Alkaline Phosphatase 143 U/L (39-117); Anion Gap 14 (12-20); Aspartate Amino Transferase 24 U/L (5-37); Bilirubin Total 0.5 mg/dL (0.0-1.0); Blood Urea Nitrogen 39 mg/dL (9-16); Carbon Dioxide 24 mmol/L (22-29); Chloride 108 mmol/L (96-108); Estimated Glomerular Filt Rate 54; Glucose Fasting 45 mg/dL (60-99); Potassium 3.8 mmol/L (3.3-5.1); Sodium 142 mmol/L (135-145); Total Protein 5.7 g/dL (6.5-8.0)
[2023-08-28 07:33] LABS: Glucose, Whole Blood 41 mg/dL (60-115)
[2023-08-28] MEDS: Dextrose 50 % 25 GM/50 ML SYRINGE IVPUSH (07:40)
[2023-08-28 07:51] LABS: Glucose, Whole Blood 166 mg/dL (60-115)
[2023-08-28 08:03] LABS: Estimated Average Glucose 111 mg/dL; Hemoglobin A1c % 5.5 % (<6.0)
[2023-08-28] MEDS: Amoxicillin 500 MG CAPSULE 1000 MG PO (09:31)
[2023-08-28] MEDS: carvediloL 6.25 MG TABLET PO (09:31)
[2023-08-28] MEDS: Bethanechol Chloride 25 MG TABLET PO (09:31)
[2023-08-28] MEDS: Folic Acid 1 MG TABLET PO (09:31)
[2023-08-28] MEDS: Ezetimibe 10 MG TABLET PO (09:31)
[2023-08-28] MEDS: Bumetanide 1 MG TABLET PO (09:31)
[2023-08-28] MEDS: Empagliflozin 10 MG TABLET PO (09:32)
[2023-08-28] MEDS: Finasteride 5 MG TABLET PO (09:32)
[2023-08-28] MEDS: Ferrous Sulfate 324 MG TABLET.DR PO (09:32)
[2023-08-28] MEDS: Spironolactone 25 MG TABLET 100 MG PO (09:32)
[2023-08-28] MEDS: Gabapentin 400 MG CAPSULE PO (09:32)
[2023-08-28] MEDS: Tamsulosin HCL 0.4 MG CAPSULE PO (09:32)
[2023-08-28] MEDS: cefTRIAXone sodium 2 GM in 0.9 % Sodium Chloride 50 ML IV (10:35)
[2023-08-28 10:54] VITALS: BP 128/58; PULSE 60; O2SAT 96
[2023-08-28 11:41] LABS: Glucose, Whole Blood 79 mg/dL (60-115)
[2023-08-28 12:00] VITALS: BP 148/68; PULSE 64; RESP 18; TEMP 36.8; O2SAT 97
--- NOTE | 2023-08-28 14:15 | PM.DS ---
DS: Providers Provider Date of Service: 08/28/23 Date of admission: 08/25/23 21:42 Date of discharge: 08/28/23 Primary care physician: Roberto Carlos Cisneros PA-C Consults: 08/25/23 21:39 Consult to Gastroenterology Routine Consulting Provider: Dread Whittaker Reason for consultation: gi bleed 08/25/23 22:07 Consult to Orthopedics Routine Consulting Provider: [facility] [place] [facility] Reason for consultation: Comminuted impacted fracture of left humeral neck and head, shoulder effusi 08/26/23 14:06 Consult to Wound Care Routine Reason for consultation: left arm fx, mult bruises/ scabs on BLE Has provider been notified: Yes Attending physician on discharge: Chang Sam Discharging clinician: Elsie Nichols DS: Diagnosis Discharge Diagnosis (1) Anemia: Status: Acute (2) Comminuted left humeral fracture: Status: Acute DS: Summary Hospital Course Hospital Course: From H&P on the day of admission 78-year-old male with history of hepatic cirrhosis complicated by esophageal varices and ascites, insulin-dependent type 2 diabetes, diabetic 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, hypertension, hyperlipidemia, history of prostate cancer, ANUJA on CPAP, chronic iron deficiency anemia, s/p bioprosthetic TAVR, CAD on DAPT, h/o endocarditis wtih PICC line in place on IV ceftriaxone and amoxicillin, s/p pacemaker presented to the ED earlier today for evaluation of anemia at the recommendation of his PCP. Per the patient, he had labs done through his VNA and received a call from [facility] that his hemoglobin was low and should present to the ED. He denies any symptoms such as shortness of breath, chest pain, lightheadedness, fatigue. Patient denies any abdominal pain, nausea, vomiting, diarrhea, constipation, melena, hematochezia, hematemesis, hematuria He states he did have mechanical fall 3 days ago after tripping on his steps and fell down 3 stairs. Denies any head strike or loss of consciousness. He has had pain in the left upper extremity since with limited range of motion however did not seek medical treatment for this. On arrival, vitals stable though patient mildly hypertension on admission with BP 146/55. He is pancytopenic with severe anemia with H/H 6.6/22.4%, platelets 111. PT 14.4, INR 1.2, PTT 28.8. Renal function baseline, electrolyte levels normal. Hepatic function baseline. Urinalysis unremarkable. Stool occult blood positive. CT of the left humerus shows a comminuted slightly impacted fracture of left humeral neck and head with associated shoulder joint effusion and associated soft tissue hematoma. EKG shows atrial sensed ventricular paced rhythm with prolonged AV leeanne conduction, rate 67, no ST/T-wave abnormalities. In the ED, transfused 2 units packed red blood cells, IV PPI, octreotide. acute on chronic blood loss anemia stool occult blood positive. s/p blood transfusion. seen by GI - feels anemia r/t to acute blood loss from hematoma from humerous fracture - may need outpatient scope in the future. but H/H has remained stable and can't lay on left side for colonoscopy with broken arm. outpatient follow up with PCP/GI acute L humerus fx with hematoma . due to mechanical fall. seen by ortho - sling for comfort, outpatient follow up. seen by PT - rec home with services. due to hematoma, plavix and aspirin placed on hold for one week Acute endocarditis with H/O strep bacteremia (diagnosed and treated at outside hospital). PICC present RUE. Last dose of ceftriaxone given today 08/28. From [facility] records, patient should also be on amoxicillin 1000 mg t.i.d. to be changed to amoxicillin 500 mg b.i.d. on 08/29. dosing verified by pharmacy. VNA aware and will remove PICC line. insulin-dependent type 2 diabetes. multiple episodes of hypoglycemia. Hba1c was checked and was low at 5.5. will hold insulin for now. continue oral meds and recommend to check blood sugars and keep log and follow up with PCP. will have VNA for close monitoring CAD/HLD hold DAPT for one week due to anemia and acute blood loss, resume 09/01 Time Attestation Discharge coordination time: Greater than 30 minutes Quality: Safe Use of Opioids Does Pt have an Active Cancer Diagnosis on the Problem List?: No Quality: Stroke Does the patient have a stroke diagnosis?: No Physical Exam Vital Signs: Vital Signs: Last Vital Signs Temp 98.3 F 08/28/23 12:00 Pulse 64 08/28/23 12:00 Resp 18 08/28/23 12:00 BP 148/68 H 08/28/23 12:00 Pulse Ox 97 08/28/23 12:00 O2 Del Method Room Air 08/28/23 12:00 BMI result Body Mass Index 27.3 Const: General: cooperative, comfortable, alert and awake Nutritional Appearance: average body habitus Resp: Effort & Inspection: normal respiratory effort, able to speak in complete sentences, no respiratory distress and no use of accessory muscles Cardio: Rate: regular rate GI: Inspection: No distended Palpation (GI): Soft to palpation and nontender Skin: Other: bruising to left arm Neuro: General: moves all extremities Extrem: Other: LUE in sling RUE PICC DS: Data Data Completed and Pending Completed studies during hospitalization [Text1]: Procedures Destruction of Bladder Neck, Via Natural or Artificial Opening Endoscopic (06/17/22) Extirpation of Matter from Bladder, Via Natural or Artificial Opening Endoscopic (06/17/22) Transfusion of Nonautologous Red Blood Cells into Peripheral Vein, Percutaneous Approach (06/17/22) Labs on day of discharge: Laboratory Results - last 24 hr 08/27/23 08/27/23 08/27/23 14:27 16:17 20:47 WBC RBC Hgb 9.1 L Hct 29.5 L MCV MCH MCHC RDW Plt Count MPV Immature Gran % (Auto) Neut % (Auto) Lymph % (Auto) [place] % (Auto) Eos % (Auto) Baso % (Auto) Lymph # (Auto) [place] # (Auto) Eos # (Auto) Baso # (Auto) Abs Immat Gran (auto) Absolute Neuts (auto) Absolute Nucleated RBC Nucleated RBC % (auto) Sodium Potassium Chloride Carbon Dioxide Anion Gap BUN Creatinine Estim Creat Clear Calc Estimated GFR POC Glucose 122 H 154 H Fasting Glucose Estimat Average Glucose Hemoglobin A1c % Calcium Total Bilirubin AST ALT Alkaline Phosphatase Total Protein Albumin 08/28/23 08/28/23 08/28/23 06:35 06:36 07:29 WBC 5.8 RBC 3.48 L Hgb 9.5 L Hct 30.5 L MCV 87.6 MCH 27.3 MCHC 31.1 RDW 16.7 H Plt Count 123 L MPV 10.2 Immature Gran % (Auto) 0.5 H Neut % (Auto) 72.5 Lymph % (Auto) 11.3 L [place] % (Auto) 12.8 H Eos % (Auto) 1.9 Baso % (Auto) 1.0 Lymph # (Auto) 0.7 L [place] # (Auto) 0.8 Eos # (Auto) 0.1 Baso # (Auto) 0.1 Abs Immat Gran (auto) 0.03 Absolute Neuts (auto) 4.2 Absolute Nucleated RBC 0.000 Nucleated RBC % (auto) 0.0 Sodium 142 Potassium 3.8 Chloride 108 Carbon Dioxide 24 Anion Gap 14 BUN 39 H Creatinine 1.28 Estim Creat Clear Calc 46.0 Estimated GFR 54 POC Glucose 41 L* Fasting Glucose 45 L* Estimat Average Glucose 111 Hemoglobin A1c % 5.5 Calcium 8.0 L Total Bilirubin 0.5 AST 24 ALT 19 Alkaline Phosphatase 143 H Total Protein 5.7 L Albumin 2.8 L 08/28/23 08/28/23 07:47 11:35 WBC RBC Hgb Hct MCV MCH MCHC RDW Plt Count MPV Immature Gran % (Auto) Neut % (Auto) Lymph % (Auto) [place] % (Auto) Eos % (Auto) Baso % (Auto) Lymph # (Auto) [place] # (Auto) Eos # (Auto) Baso # (Auto) Abs Immat Gran (auto) Absolute Neuts (auto) Absolute Nucleated RBC Nucleated RBC % (auto) Sodium Potassium Chloride Carbon Dioxide Anion Gap BUN Creatinine Estim Creat Clear Calc Estimated GFR POC Glucose 166 H 79 Fasting Glucose Estimat Average Glucose Hemoglobin A1c % Calcium Total Bilirubin AST ALT Alkaline Phosphatase Total Protein Albumin Discharge Plan Discharge Anticipated Discharge Date/Time: 08/28/23 14:05 Patient Disposition: Home Health Service Discharge Diagnosis: hypoglycemia anemia left humorus fracture Referrals: [facility] [Outside] - 1 Week Roberto Carlos Cisneros PA-C [Primary Care Provider] - 1 Week Margaret Masterson PA-C [Physician Cassandra Developer] - 1 Week Discharge Medications: New amoxicillin 500 mg Capsule 1,000 mg PO TID Qty: 1 0RF amoxicillin 500 mg Capsule 500 mg PO BID Qty: 1 0RF Continued bethanechol chloride 25 mg tablet 25 mg PO BID 90 Days Qty: 180 1RF tamsulosin 0.4 mg capsule 0.4 mg PO DAILY 90 Days Qty: 90 1RF alprazolam 0.5 mg tablet 0.5 mg PO BID PRN (Reason: Anxiety) 30 Days Qty: 60 2RF folic acid 800 mcg tablet 0.8 mg PO DAILY 30 Days Qty: 30 3RF cyanocobalamin (vitamin B-12) 500 mcg Tablet 1,000 mcg PO BEDTIME bumetanide 1 mg tablet 1 mg PO DAILY spironolactone 100 mg tablet 100 mg PO DAILY Protocol: Hold for SBP< HOLD for SBP < : 120 gabapentin 400 mg capsule 400 mg PO BID amoxicillin 500 mg capsule 1,000 mg PO TID finasteride [Proscar] 5 mg tablet 5 mg PO DAILY 90 Days Qty: 90 1RF furosemide 40 mg tablet 40 mg PO DAILY PRN (Reason: edema) 30 Days Qty: 30 3RF carvedilol 6.25 mg tablet 6.25 mg PO BID 30 Days Qty: 60 3RF Rx Instructions: must administer with a meal/food ezetimibe [Zetia] 10 mg tablet 10 mg PO DAILY Qty: 30 3RF midodrine 10 mg tablet 10 mg PO DAILY PRN (Reason: low blood pressure) 30 Days Qty: 60 3RF Rx Instructions: do not give last dose of day after 6PM or within 4 hrs of bedtime pantoprazole 40 mg tablet,delayed release (DR/EC) 40 mg PO DAILY Qty: 30 3RF Farxiga 10 mg tablet 10 mg PO DAILY 30 Days Qty: 30 3RF atorvastatin 80 mg tablet 80 mg PO BEDTIME 30 Days Qty: 30 3RF ferrous sulfate 325 mg (65 mg iron) tablet,delayed release (DR/EC) 325 mg PO DAILY Held clopidogrel 75 mg tablet 75 mg PO DAILY 30 Days Qty: 30 3RF Hold Instructions: hold until 09/01 aspirin [Adult Aspirin Regimen] 81 mg tablet,delayed release (DR/EC) 81 mg PO DAILY 30 Days Qty: 30 3RF Hold Instructions: hold aspirin until 09/01 Discontinued insulin degludec [Tresiba FlexTouch U-200] 200 unit/mL (3 mL) insulin pen 60 unit subcut BEDTIME 30 Days Qty: 9 3RF insulin aspart U-100 [Novolog FlexPen U-100 Insulin] 100 unit/mL (3 mL) insulin pen 22 unit subcut TIDAC PRN (Reason: BG > 150) ceftriaxone 10 gram recon soln 2 g IV Q12H Trulicity 0.75 mg/0.5 mL pen injector 0.75 mg subcut TU@0900 28 Days Qty: 2 3RF Rx Instructions: FUTURE REFILLS FROM PCP. No Action (DME) pen needle, diabetic [BD Gifty 2nd Gen Pen Needle] 32 gauge x 5/32 needle See Rx Instructions .MEDSUPPLY Qty: 150 5RF Rx Instructions: 4 times a day (DME) FreeStyle Marleni 14 Day [place] Misc See Rx Instructions .Route Qty: 1 0RF Rx Instructions: As directed (DME) FreeStyle Marleni 14 Day Sensor Kit See Rx Instructions .Route Qty: 2 2RF Rx Instructions: As directed (DME) blood-glucose meter [FreeStyle Lite Meter] Kit See Rx Instructions .Route Qty: 1 0RF Rx Instructions: As directed (DME) FreeStyle Test Strip See Rx Instructions .Route Qty: 100 3RF Rx Instructions: three times per day (DME) lancets [FreeStyle Lancets] 28 gauge misc See Rx Instructions .Route Qty: 100 6RF Rx Instructions: As directed three times per day (DME) blood pressure test kit-large Kit See Rx Instructions .Route Qty: 1 0RF Rx Instructions: As directed Discharge Orders: Discharge Order (Routine); Ordered 08/28/23 Ordered By: Elsie Nichols Activity on Discharge: As tolerated Stand Alone Forms: Patient Portal Discharge page Care Plan Goals: see below Health Concerns: you have completed course of IV ceftriaxone that was prescribed by [facility].Today, 08/28, was the last dose you should continue amoxicillin 1000 TID until tonights dose and then 500 twice daily as prescribed by [facility]. follow up with infectious disease from [facility] as scheduled. for anemia - your blood numbers have been stable. you may need outpatient scope done in the future after arm improves. discuss with your PCP/GI provider for left arm fracture - follow up with ortho as outpatient. continue using sling for comfort hypoglycemia. your blood sugar has been low. your hemaglobin a1c was low at 5.5. stop taking insulin. check your blood sugar before meals and at bedtime and keep a log of your blood sugar - call to schedule a follow up appointment with your PCP to discuss diabetes management. you will be discharged home with VNA services and PT Plan of Treatment: see above Assessment: see discharge summary Discharge Date/Time: 08/28/23 15:28
--- NOTE | 2023-08-28 14:23 | MHC.CM.PN ---
Pt is medically cleared for D/C home with resumption of [facility]. [facility] shuttle for transport home at 3pm today.
== END 2023-08-28 15:28 | disposition home health service (06) | DRG 604 ==
LOC: HO.ED 19:53 → HO.EDOVER 21:52 → HO.IMC 21:58
PROVIDERS: Hospitalist; Physician Assistant; Admitting Provider Physician Assistant; Emergency Provider Emergency Medicine; PCP Physician Assistant; Visit Provider Physician Assistant Medical
DX: S40.022A Contusion of left upper arm, initial encounter (principal); I33.9 Acute and subacute endocarditis, unspecified; S42.212A Unspecified displaced fracture of surgical neck of left humerus, initial encounter for closed fracture; D62 Acute posthemorrhagic anemia; D61.818 Other pancytopenia; W19.XXXA Unspecified fall, initial encounter; I25.10 Atherosclerotic heart disease of native coronary artery without angina pectoris; G47.33 Obstructive sleep apnea (adult) (pediatric); Z95.2 Presence of prosthetic heart valve; R19.5 Other fecal abnormalities; E78.5 Hyperlipidemia, unspecified; I10 Essential (primary) hypertension; K74.60 Unspecified cirrhosis of liver; E11.649 Type 2 diabetes mellitus with hypoglycemia without coma; E11.42 Type 2 diabetes mellitus with diabetic 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; I95.1 Orthostatic hypotension; N40.0 Benign prostatic hyperplasia without lower urinary tract symptoms; Z95.0 Presence of cardiac pacemaker; Z91.041 Radiographic dye allergy status; Z91.040 Latex allergy status; Z79.82 Long term (current) use of aspirin; Z79.02 Long term (current) use of antithrombotics/antiplatelets; Z79.899 Other long term (current) drug therapy
CPT/HCPCS: 36415; 73030; 73060; 73080; 73201; 76705; 80048; 80053; 80076; 81003; 82272; 82728; 82947; 83036; 83540; 83735; 85014; 85018; 85025; 85610; 85730; 86850; 86900; 86901; 86923; 93005; 94660; 97116; 97162; 99285; C9113; J0696; J1940; J2270; J2354; P9016; Q9967

== ENCOUNTER → 2023-08-25 15:02 | Outpatient (BNV) | payer MEDICARE, SELFPAY | PROVIDERS: Admitting Provider Physician Assistant; Emergency Provider Emergency Medicine; PCP Physician Assistant; Visit Provider Internal Medicine Cardiovascular Disease | DX: R94.31 Abnormal electrocardiogram [ECG] [EKG] (principal) | CPT/HCPCS: 93010 ==

== ENCOUNTER → 2023-08-25 21:42 | Outpatient (BNV) | payer MEDICARE, SELFPAY | PROVIDERS: Admitting Provider Physician Assistant; Emergency Provider Emergency Medicine; PCP Physician Assistant; Visit Provider Internal Medicine Gastroenterology | DX: D64.9 Anemia, unspecified (principal) | CPT/HCPCS: 99223 ==

== ENCOUNTER → 2023-08-25 21:42 | Outpatient (BNV) | payer MEDICARE, SELFPAY | PROVIDERS: Admitting Provider Physician Assistant; Emergency Provider Emergency Medicine; PCP Physician Assistant; Visit Provider Physician Assistant | DX: D64.9 Anemia, unspecified (principal); S42.302A Unspecified fracture of shaft of humerus, left arm, initial encounter for closed fracture | CPT/HCPCS: 99223; 99232; 99233; 99239 ==

== ENCOUNTER → 2023-08-25 21:42 | Outpatient (BNV) | payer MEDICARE, SELFPAY | PROVIDERS: Admitting Provider Physician Assistant; Emergency Provider Emergency Medicine; PCP Physician Assistant; Visit Provider Physician Assistant | DX: S42.302A Unspecified fracture of shaft of humerus, left arm, initial encounter for closed fracture (principal); D64.9 Anemia, unspecified | CPT/HCPCS: 99231 ==

== ENCOUNTER 2023-09-01 10:43 | Outpatient (AMB) | payer MEDICARE, SELFPAY ==
--- NOTE | 2023-09-01 10:44 | A.OFFVIS_ITS ---
Intake Visit Reasons: [facility] Follow up Intake Note: Patient [facility] follow up for blood level was irregular. Patient denies any GI issues. 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 Accompanied by: Self / Same As Patient Allergies KARL Inhibitors Allergy (Severe, Verified 01/25/24 11:15) Angioedema dextran 40 [DEXTRAN 40] Allergy (Intermediate, Verified 01/25/24 11:15) tachycardia latex [LATEX] Allergy (Mild, Verified 01/25/24 11:15) BLISTERS lisinopril [From Zestril] Allergy (Mild, Verified 01/25/24 11:15) Unknown Iodinated Contrast Media [CONTRAST,IV] Allergy (Unknown, Verified 01/25/24 11:15) UNKNOWN Medication List - Last Reconciled 09/01/23 by Arsenio Burns MD alprazolam 0.5 mg PO BID PRN 30 days amoxicillin 1,000 mg PO TID amoxicillin 1,000 mg (2 x 500 mg) PO TID amoxicillin 500 mg PO BID aspirin (Adult Aspirin Regimen) 81 mg PO DAILY 30 days atorvastatin 80 mg PO BEDTIME 30 days bethanechol chloride 25 mg PO BID 90 days blood pressure test kit-large As directed blood sugar diagnostic (FreeStyle Test strips) three times per day blood-glucose meter (FreeStyle Lite Meter kit) As directed bumetanide 1 mg PO DAILY carvedilol 6.25 mg PO BID 30 days clopidogrel 75 mg PO DAILY 30 days cyanocobalamin (vitamin B-12) 1,000 mcg PO BEDTIME dapagliflozin propanediol (Farxiga) 10 mg PO DAILY 30 days ezetimibe (Zetia) 10 mg PO DAILY ferrous sulfate 325 mg PO DAILY finasteride (Proscar) 5 mg PO DAILY 90 days flash glucose scanning reader (FreeStyle Marleni 14 Day [place]) As directed flash glucose sensor (FreeStyle Marleni 14 Day Sensor kit) As directed folic acid 0.8 mg PO DAILY 30 days furosemide 40 mg PO DAILY PRN 30 days gabapentin 400 mg PO BID lancets (FreeStyle Lancets) As directed three times per day midodrine 10 mg PO DAILY PRN 30 days pantoprazole 40 mg PO DAILY pen needle, diabetic (BD Gifty 2nd Gen Pen Needle) 4 times a day spironolactone 100 mg See Protocol PO DAILY tamsulosin 0.4 mg PO DAILY 90 days HPI HPI [facility] Follow up: Details: GI CLINIC VISIT FOR THIS 78-YEAR-OLD MALE FOR FOLLOW-UP OF CIRRHOSIS AND IRON DEFICIENCY ANEMIA Patient was hospitalized from -08/28/23 with acute on chronic anemia without overt bleed Pancytopenia with severe anemia with H/H 6.6/22.4% (baseline HGB: usu around 9 g/dl) , platelets 111. PT 14.4, INR 1.2, PTT 28.8. Renal function baseline, electrolyte levels normal. Hepatic function baseline. Urinalysis unremarkable Stool occult blood positive. CT of the left humerus shows a comminuted slightly impacted fracture of left humeral neck and head with associated shoulder joint effusion and associated soft tissue hematoma. EKG shows atrial sensed ventricular paced rhythm with prolonged AV leeanne conduction, rate 67, no ST/T-wave abnormalities. In the ED, transfused 2 units packed red blood cells, IV PPI, octreotide. acute on chronic blood loss anemia stool occult blood positive. s/p blood transfusion. seen by GI - feels anemia r/t to acute blood loss from hematoma from humerous fracture - may need outpatient scope in the future. but H/H has remained stable and can't lay on left side for colonoscopy with broken arm. outpatient follow up with PCP/GI ? LABS IN [facility]:?04/05/20 H&H OF 10.4 & 32.8, PLATELET 101, ? 11/25/19 INR 1.2 ? IRON STUDIES CONSISTENT WITH IRON DEFICIENCY ANEMIA WITH FERRITIN OF 16 ? NORMAL LFTS WITH ALBUMIN OF 4.5. ? LIVER FIBROSIS SCORE OF 0.79, LIVER FIBROSIS STAGE F4, NECROINFLAMMATORY SCORE 0.06. ? HEPATITIS B AND C SEROLOGIES WERE NEGATIVE ? SHAVON, AND CELIAC SEROLOGIES WERE NEGATIVE ?IMAGING STUDIES: Oct, 2021 ABD US SHOWED: LIVER: There is trace free fluid adjacent to the liver. The liver contour is normal. Liver is diffusely echogenic. No focal hepatic lesion. There is no intrahepatic biliary duct dilatation seen. Normal hepatopedal flow seen in the middle portal vein. The portal vein may be enlarged. GALLBLADDER: The gallbladder is physiologically distended. Multiple mobile gallstones are present. No evidence of pericholecystic fluid. 01/12/20 ABDOMINAL MRI SHOWED: ? LIVER, GALLBLADDER, AND BILIARY TREE: The enlarged, cirrhotic liver has ? slightly nodular surface contour. The right hepatic lobe measures 23 cm ? in craniocaudal dimension. Liver parenchyma exhibits slightly decreased ? signal on [id number] compared to in-phase images, suggestive of mild ? steatosis. There is no correlate to the imaging finding in the left ? lobe observed on the ultrasound of 12/27/2019. There are no hepatic ? masses. The finding on the recent ultrasound exam was likely due to the ? mild heterogeneity of the parenchyma. No arterial phase hyperenhancing ? lesion. Gallbladder is physiologically distended and contains a few ? calculi. The mild, diffuse thickening of the gallbladder wall is likely ? reactive to the hepatic disease. No pericholecystic fluid. Common bile duct is 0.4 cm diameter. ?ENDOSCOPIC STUDIES; 04/30/21? EGD SHOWED: ESOPHAGUS: GE junction at 40cms.? Grade 2-3 four column varices from 30 to 40 cms. band ligation x 3 was performed with flattening of the varices. STOMACH:??Moderate portal gastropathy. A 1.5 cms ulcerated polyp/nodule in the antrum partially removed with a hot snare - Bx showed:?Hyperplastic mucosal polyp, inflamed and ulcerated. Plan:? Patient has an appointment on 06/13/21 in the GI Clinic with Arsenio woods M.D. Above findings were reviewed with the patient 08/20/20 EGD AND COLON SHOWED: ? ESOPHAGUS: Grade 2-3 four column varices from 25 to 40 cms? - band ligation x 3 was performed with flattening of the varices. ? STOMACH: Moderate portal gastropathy. A 2 cms nodule in the gastric antrum.? Biopsies were obtained. ? No significant gastric varices and Grade 2 flap valve on retroflexed examination of the cardia. ? Colonoscopy Findings: ? Six medium sized polyps removed ? Moderate diverticulosis seen in the left colon ? Mild radiation proctitis in the distal rectum without bleeding and moderate hemorrhoids on retroflexed exam. ? Iron deficiency anemia most likely related to slow GI blood loss from multiple large colon polyps and gastric polyps. ? Plan: ? Patient has an appointment on 09/03/20 in the GI Clinic with Arsenio Burns M.D.-. ? Repeat Colonoscopy interval based on path results - in 1-2 years if polyps are adenomatous. ? Above findings were reviewed with the patient. ?BIOPSIES SHOWED: ? A.? Stomach, nodule, biopsy:? Antral-type mucosa with mild chronic inactive inflammation and surface hyperplastic changes; no Helicobacter organisms seen.. ? B.? Cecum, polypectomy:? Tubular adenoma; no high grade dysplasia or carcinoma seen. ? C.? Cecum, polypectomy #2:? Fragments of sessile serrated polyp. ? D.? Colon, ascending, polypectomies: ?- Tubular adenomas (two); no high grade dysplasia or carcinoma seen. ? - Sessile serrated polyp. ? E.? Colon, transverse, polypectomy:? Tubular adenoma; no high grade dysplasia or carcinoma seen. ?TODAY'S VISIT: Had abdominal pain, nausea, vomting and diarrhea - seen at [facility] and was discharged after 12-13 hrs Symptoms subsided. Recurrent symptoms the following week. Continues to have intermittent episodes. Started taking senna. Stomach starts to make loud noises followed by diarrhea. Complains of lower abdominal pain worse with BM. He denies worsening of pain with eating PAST VISITS: Had IV iron infusions from May to Oct, 2021 (had 11 infusions) Notes fatigue and dyspnea on mild exertion and has normal BMs without blood. Has gained 3 to 4 lbs over the past few months. Saw Dr Lopez In [place] on 09/24/20 and scheduled for a Cardiac Cath with Dr Eveline Meneses at [facility] on 01/08/22. Endoscopic bx results were reviewed. Notes intermittent fatigue. Taking iron and Vitamin B12. Has been vaccinated for COVID 7 months ago. Continues to have acid reflux intermittently when he takes spicy food. 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 Streptococcal bacteremia Fracture of left humerus History of prostate cancer Acute lower gastrointestinal bleeding COVID-19 vaccine series completed Hypertension Dyslipidemia Diabetic nephropathy associated with type 2 diabetes mellitus Diabetic 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 associated with type 2 diabetes mellitus superintendent terminal (current) use of insulin Diabetes type 2, uncontrolled Varices of esophagus determined by endoscopy Esophageal varices without bleeding KOEHLER (dyspnea on exertion) Chronic fatigue Iron deficiency anemia CAD (coronary artery disease) ANUJA on CPAP Prostate cancer Spinal stenosis On beta kayy at home IBS (irritable colon syndrome) Aortic stenosis HTN (hypertension) DMII (diabetes mellitus, type 2) Polyneuropathy GERD (gastroesophageal reflux disease) Surgical History S/P infectious endocarditis H/O cataract extraction Hx of endoscopy History of colonoscopy Hx of esophagogastroduodenoscopy Hx of colonoscopy History of surgery History of transurethral resection of prostate History of surgery History of heart artery stent Family History Father CVD (cardiovascular disease) Past heart attack Mother CVD (cardiovascular disease) Brain cancer Heart problem Daughter Breast cancer Sister Breast cancer Son Alive and well Family/Other Myocardial infarction Liver cancer Social History Household Members: Spouse Household Members Other:: Myesha Housing: House Are you a primary career technology teacher to a significant other at home: No Do you presently have visiting nurse or other home services: Yes (RN 2 x a week) Alcohol intake: never Patient Tobacco Use Status: Never used Tobacco e-Cigarette/Vaping Use: Never Used Second Hand Smoke Exposure: No Advance Directives Date on File: 08/31/23 service: No Current occupational status: retired Cognitive needs: No Hearing needs: No Vision needs: Yes Review of Systems Const All systems reviewed & are unremarkable except as noted in HPI and below Physical Exam Const General: no acute distress and ill appearing (Chronically ill-appearing) Nutritional Appearance: obese Orientation/consciousness: patient oriented x3 Limitations: no limitations HEENT Head: Yes normal to inspection Ears: hearing grossly normal bilaterally Mouth: Normal oral and palatal mucosa present Eyes Sclerae: sclerae normal Pupils: Equal, round and reactive pupils present Neck Neck: Yes normal visual inspection Chest Chest palpation & inspection: normal inspection of the chest Resp Effort & Inspection: normal respiratory effort Auscultation: clear to auscultation bilaterally Cardio Palpation: normal PMI Rate: regular rate Rhythm: regular rhythm Heart sounds: S1 normal heart sound present, S2 normal heart sound present and no murmurs GI Palpation (GI): Soft to palpation, nontender and No hepatosplenomegaly present Auscultation: normal bowel sounds Rectal Exam - Male: Yes deferred Skin General skin exam: no rashes or lesions noted Neuro General: patient oriented x3, gait normal and moves all extremities Cranial nerves: Yes Equal, round and reactive pupils present Psych Appearance: grossly normal Mental Status: mental status grossly normal Telehealth Telehealth Location of provider rendering services: practice address Location of patient: address on file Patient Identification confirmed using: Name, : Yes Telehealth method: voice only Patient verbally consented to treatment: Yes Patient verbally consented to billing insurance company: Yes Patient informed of any privacy concerns related to visit: Yes Minutes spent on Phone/Video with Pt.: 21 Assessment & Plan Assessment & Plan (1) Vitamin B12 deficiency: Code(s): E53.8 - Deficiency of other specified B group vitamins Category: Medical (2) Cirrhosis of liver without ascites: Code(s): K74.60 - Unspecified cirrhosis of liver Category: Medical (3) Multiple gastric polyps: Code(s): K31.7 - Polyp of stomach and duodenum Category: Medical (4) Adenomatous polyps: Comment: Repeat colonoscopy in 2 yrs (due 09/04) since 6 polyps were removed during colonoscopy in 09/02 Code(s): D36.9 - Benign neoplasm, unspecified site Category: Medical (5) Esophageal varices in cirrhosis: Comment: History of GI bleed in 2019 status post scopes with varices and bleeding ulcer which was clipped. F/U's with [facility] for colonoscopy. Code(s): K74.60 - Unspecified cirrhosis of liver; I85.10 - Secondary esophageal varices without bleeding Category: Medical (6) GERD (gastroesophageal reflux disease): Code(s): K21.9 - Gastro-esophageal reflux disease without esophagitis Category: Medical (7) GI bleed: Code(s): K92.2 - Gastrointestinal hemorrhage, unspecified Category: Medical (8) Anemia: Code(s): D64.9 - Anemia, unspecified Category: Medical Plan 78 YM with heart disease, cirrhosis, type 2 diabetes, hypertension, hyperlipidemia, spinal stenosis, ANUJA and a history of prostate cancer status post XRT seen for FU Pt was hospitalized with acute on chronic iron deficiency anemia due to slow GI blood loss. He had rectal bleeding secondary to radiation proctitis and cystitis. He is on ferrous sulfate twice a day. Negative for celiac antibodies. He had an allergic reaction to iron dextran.? He has been on IV Ferrlecit intermittently.? He also received blood transfusion. Patient has a known history of cirrhosis likely related to past EtOH use complicated by splenomegaly and thrombocytopenia and esophageal varices. Developed upper GI bleeding related to esophageal varices and band ligation of esophageal varices was performed.? Fibrosis score of 0.79 and fibrosis stage of F4. MELD score is 9. Patient is not a liver transplant candidate due to advanced age. 09/02 Upper endoscopy showed Grade 2-3 four column varices from 25 to 40 cms? - band ligation x 3 was performed with flattening of the varices. Moderate portal gastropathy was noted. Six polyps were removed during same-day colonoscopy. 04/2021 Repeat EGD with band ligation was performed. Patient has vitamin B12 deficiency due to pernicious anemia, is positive for intrinsic factor antibodies and is taking Oral Vitamin B12. Pt will be scheduled for repeat EGD with band ligation for FU of esophageal varices (Pt is scheduled for a cardiac cath on 01/08/22 at [facility]). Pt states he is taking aspirin and Plavix was discontinued. Had abdominal pain, nausea, vomting and diarrhea - seen at [facility] and was discharged after 12-13 hrs Symptoms subsided. Recurrent symptoms the following week. Continues to have intermittent episodes. Started taking senna. Stomach starts to make loud noises followed by diarrhea. Complains of lower abdominal pain worse with BM. He denies worsening of pain with eating Pt advised to schedule an EGD and Colonoscopy in Oct, 2023 FU in 3 months. Coding Level of Care Code Est Pt Level 4 (70054) Diagnoses Vitamin B12 deficiency E53.8 Cirrhosis of liver without ascites K74.60 Multiple gastric polyps K31.7 Adenomatous polyps D36.9 Esophageal varices in cirrhosis K74.60; I85.10 GERD (gastroesophageal reflux disease) K21.9 GI bleed K92.2 Anemia D64.9 Time Spent (min) 22
== END 2023-09-01 12:48 | disposition home or self-care (01) ==
LOC: HO.HGI 10:43
PROVIDERS: PCP Physician Assistant; Visit Provider Internal Medicine Gastroenterology
DX: E53.8 Deficiency of other specified B group vitamins (principal); K74.60 Unspecified cirrhosis of liver; K31.7 Polyp of stomach and duodenum; D36.9 Benign neoplasm, unspecified site; I85.10 Secondary esophageal varices without bleeding; K21.9 Gastro-esophageal reflux disease without esophagitis; K92.2 Gastrointestinal hemorrhage, unspecified; D64.9 Anemia, unspecified
CPT/HCPCS: 99214

== ENCOUNTER → 2023-09-01 10:43 | Outpatient (BNVA) | payer MEDICARE, SELFPAY | PROVIDERS: PCP Physician Assistant; Visit Provider Internal Medicine Gastroenterology | DX: E53.8 Deficiency of other specified B group vitamins (principal); K74.60 Unspecified cirrhosis of liver; K31.7 Polyp of stomach and duodenum; K21.9 Gastro-esophageal reflux disease without esophagitis; K92.2 Gastrointestinal hemorrhage, unspecified; D36.9 Benign neoplasm, unspecified site; D64.9 Anemia, unspecified; I85.10 Secondary esophageal varices without bleeding | CPT/HCPCS: 99212 ==

== ENCOUNTER 2023-09-04 14:44 | Outpatient (REF) | payer MEDICARE, SELFPAY | END 2023-09-04 14:45 | disposition home or self-care (01) | LOC: HO.MDS 14:44 | PROVIDERS: Visit Provider Internal Medicine | DX: D50.9 Iron deficiency anemia, unspecified (principal) | CPT/HCPCS: 96365; J1756 ==

== ENCOUNTER 2023-09-16 13:30 | Outpatient (REF) | payer MEDICARE, SELFPAY | END 2023-09-16 13:31 | disposition home or self-care (01) | LOC: HO.MDS 13:30 | PROVIDERS: Visit Provider Internal Medicine | DX: D64.9 Anemia, unspecified (principal) | CPT/HCPCS: 96365; J1756 ==

== ENCOUNTER 2023-09-21 14:45 | Outpatient (REF) | payer MEDICARE, SELFPAY | END 2023-09-21 14:46 | disposition home or self-care (01) | LOC: HO.MDS 14:45 | PROVIDERS: Visit Provider Internal Medicine | DX: D64.9 Anemia, unspecified (principal) | CPT/HCPCS: 96365; J1756 ==

== ENCOUNTER 2023-09-28 10:08 | Outpatient (REF) | payer MEDICARE, SELFPAY | END 2023-09-28 10:09 | disposition home or self-care (01) | LOC: HO.HOSX 10:08 | PROVIDERS: Visit Provider Physician Assistant | DX: Z13.89 Encounter for screening for other disorder (principal) ==

== ENCOUNTER 2023-09-29 08:29 | Outpatient (REF) | payer MEDICARE, SELFPAY ==
[2023-09-29 10:47] LABS: MANUAL DIFF FLAG NO
[2023-09-29 10:57] LABS: Basophils Absolute Auto 0.1 X10*3/uL (0.0-0.2); Basophils Percent Auto 1.1 % (0-2); Eosinophils Absolute Auto 0.2 X10*3/uL (0.0-0.4); Eosinophils Percent Auto 2.9 % (0-4); Hematocrit 25.9 % (42.0-52.0); Imm Gran Abs Auto 0.03 X10*3/uL (0.00-0.03); Imm Gran Pct Auto 0.4 % (0.0-0.4); Lymphocytes Absolute Auto 0.8 X10*3/uL (1.2-4.9); Lymphocytes Percent Auto 10.3 % (20-40); Mean Corpuscular HGB Conc 30.9 g/dl (31.0-36.0); Mean Corpuscular Hemoglobin 28.4 pg (27.0-33.0); Mean Corpuscular Volume 91.8 fL (80.0-98.0); Mean Platelet Volume 12.3 fL (9.4-12.4); Monocytes Absolute Auto 0.9 X10*3/uL (0.1-1.2); Monocytes Percent Auto 10.9 % (2-11); Neutrophils Percent Auto 74.4 % (45-73); Platelet Count 104 X10*3/uL (160-400); Red Blood Count 2.82 X10*6/uL (4.60-5.80); Red Cell Distribution Width 19.5 % (11.0-16.0); White Blood Count 8.1 X10*3/uL (4.8-10.8)
== END 2023-09-29 08:30 | disposition home or self-care (01) ==
LOC: HO.LHD 08:29
PROVIDERS: Visit Provider Internal Medicine
DX: D64.9 Anemia, unspecified (principal)
CPT/HCPCS: 36415; 85025

== ENCOUNTER 2023-10-06 06:40 | Outpatient (REF) | payer MEDICARE, SELFPAY ==
[2023-10-06 10:49] LABS: MANUAL DIFF FLAG NO
[2023-10-06 10:56] LABS: Basophils Absolute Auto 0.1 X10*3/uL (0.0-0.2); Eosinophils Absolute Auto 0.2 X10*3/uL (0.0-0.4); Eosinophils Percent Auto 2.5 % (0-4); Hematocrit 24.8 % (42.0-52.0); Hemoglobin 7.7 g/dl (14.0-18.0); Imm Gran Abs Auto 0.04 X10*3/uL (0.00-0.03); Imm Gran Pct Auto 0.6 % (0.0-0.4); Lymphocytes Absolute Auto 0.8 X10*3/uL (1.2-4.9); Lymphocytes Percent Auto 11.4 % (20-40); Mean Corpuscular Hemoglobin 28.9 pg (27.0-33.0); Mean Corpuscular Volume 93.2 fL (80.0-98.0); Mean Platelet Volume 12.4 fL (9.4-12.4); Monocytes Absolute Auto 0.8 X10*3/uL (0.1-1.2); Monocytes Percent Auto 10.8 % (2-11); Neutrophils Absolute Auto 5.2 x10*3/uL (2.0-8.3); Neutrophils Percent Auto 73.7 % (45-73); Red Blood Count 2.66 X10*6/uL (4.60-5.80); Red Cell Distribution Width 18.9 % (11.0-16.0); White Blood Count 7.1 X10*3/uL (4.8-10.8)
[2023-10-06 10:57] LABS: Platelet Count 95 X10*3/uL (160-400)
== END 2023-10-06 06:41 | disposition home or self-care (01) ==
LOC: HO.LHD 06:40
PROVIDERS: Visit Provider Internal Medicine
DX: Z13.89 Encounter for screening for other disorder (principal)
CPT/HCPCS: 36415; 85025

== ENCOUNTER 2023-10-06 14:17 | Emergency (ER) | payer MEDICARE, SELFPAY ==
[2023-10-06 14:21] VITALS: BP 135/55; PULSE 89; RESP 18; TEMP 36.6; O2SAT 99; BMI 25.5
--- NOTE | 2023-10-06 14:29 | ED.GENADULT ---
HPI - General Adult General Chief complaint: General Medical Stated complaint: High Blood Sugar Time Seen by Provider: 10/06/23 21:03 Source: patient Mode of arrival: ambulatory History of Present Illness HPI narrative: This is an 78-year-old male who presents with concerns regarding a sudden change in his diabetic medication after 17 years from NovoLog and a evening time long-acting insulin to a pill. Patient states that this is never going to work and states that his primary care physician did not speak to him and he has been attempting to contact this individual for 3 days. Patient is not concerned about his anemia and denies any shortness of breath or chest pain and states that he has a scheduled blood transfusion this and states that it is of unknown etiology and that he underwent significant testing while at [facility] approximately 1 month ago and they were unable to identify the source. Patient is no longer taking blood thinners for proximally 1 week. Patient is concerned because he cares for his who is currently at bedside. Related Data Home Medications Medication Instructions Recorded Confirmed cyanocobalamin (vitamin B-12) 500 1,000 mcg PO BEDTIME 12/29/22 09/08/23 mcg tablet ferrous sulfate 325 mg (65 mg 325 mg PO DAILY 04/29/23 09/08/23 iron) tablet,delayed release bumetanide 1 mg tablet 1 mg PO DAILY 08/25/23 09/08/23 gabapentin 400 mg capsule 400 mg PO BID 08/25/23 09/08/23 spironolactone 100 mg tablet 100 mg PO DAILY 08/25/23 09/08/23 Previous Rx's Medication Instructions Recorded blood pressure test kit-large #1 ea 11/21/21 pen needle, diabetic 32 gauge x #150 ea 05/08/2232 (BD Gifty 2nd Gen Pen Needle) blood-glucose meter (FreeStyle #1 ea 10/03/22 Lite Meter kit) flash glucose scanning reader #1 ea 10/03/22 (FreeStyle Marleni 14 Day [place]) flash glucose sensor (FreeStyle #2 ea 10/03/22 Marleni 14 Day Sensor kit) blood sugar diagnostic (FreeStyle #100 ea 02/24/23 Test strips) aspirin 81 mg tablet,delayed 81 mg PO DAILY 30 days #30 tabs 03/11/23 release (Adult Aspirin Regimen) atorvastatin 80 mg tablet 80 mg PO BEDTIME 30 days #30 tabs 03/11/23 carvedilol 6.25 mg tablet 6.25 mg PO BID 30 days #60 tabs 03/11/23 dapagliflozin propanediol 10 mg 10 mg PO DAILY 30 days #30 tabs 03/11/23 tablet (Farxiga) ezetimibe 10 mg tablet (Zetia) 10 mg PO DAILY #30 tabs 03/11/23 finasteride 5 mg tablet (Proscar) 5 mg PO DAILY 90 days #90 tabs 03/11/23 furosemide 40 mg tablet 40 mg PO DAILY PRN edema 30 days 03/11/23 #30 tabs midodrine 10 mg tablet 10 mg PO DAILY PRN low blood 03/11/23 pressure 30 days #60 tabs pantoprazole 40 mg tablet,delayed 40 mg PO DAILY #30 tabs 03/11/23 release tamsulosin 0.4 mg capsule 0.4 mg PO DAILY 90 days #90 caps 06/11/23 alprazolam 0.5 mg tablet 0.5 mg PO BID PRN Anxiety 30 days 06/22/23 #60 tabs lancets 28 gauge (FreeStyle #100 ea 06/26/23 Lancets) folic acid 800 mcg tablet 0.8 mg PO DAILY 30 days #30 tabs 07/30/23 amoxicillin 500 mg capsule 500 mg PO BID #1 cap 08/28/23 bethanechol chloride 25 mg tablet 25 mg PO BID 90 days #180 tabs 09/15/23 insulin glargine 100 unit/mL (3 8 unit (0.08 mL) subcut QAM 30 10/05/23 mL) subcutaneous pen (agl days #15 mL KwikPen U-100 Insulin) pen needle, diabetic 32 gauge x #50 ea 10/05/23 (BD Ultra-Fine Gifty Pen Needle) Allergies Allergy/AdvReac Type Severity Reaction Status Date / Time KARL Inhibitors Allergy Severe Angioedema Verified 10/06/23 14:21 dextran 40 [DEXTRAN 40] Allergy Intermediate tachycardia Verified 10/06/23 14:21 latex [LATEX] Allergy Mild BLISTERS Verified 10/06/23 14:21 lisinopril [From Zestril] Allergy Mild Unknown Verified 10/06/23 14:21 Iodinated Contrast Media Allergy Unknown UNKNOWN Verified 10/06/23 14:21 [CONTRAST,IV] Review of Systems Review of Systems: Pertinent positives and negatives as stated in in HPI PMFSH Past Medical History Source: nursing notes reviewed Medical History Fracture of left humerus History of prostate cancer Acute lower gastrointestinal bleeding COVID-19 vaccine series completed Hypertension Dyslipidemia Diabetic nephropathy associated with type 2 diabetes mellitus 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 associated with type 2 diabetes 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 Diabetes type 2, uncontrolled Varices of esophagus determined by endoscopy Esophageal varices without bleeding KOEHLER (dyspnea on exertion) Chronic fatigue Iron deficiency anemia CAD (coronary artery disease) ANUJA on CPAP Prostate cancer Spinal stenosis On beta kayy at home IBS (irritable colon syndrome) Aortic stenosis HTN (hypertension) DMII (diabetes mellitus, type 2) Polyneuropathy GERD (gastroesophageal reflux disease) Surgical History S/P infectious endocarditis H/O cataract extraction Hx of endoscopy History of colonoscopy Hx of esophagogastroduodenoscopy Hx of colonoscopy History of surgery History of transurethral resection of prostate History of surgery History of heart artery stent Family History Family History Father CVD (cardiovascular disease) Past heart attack Mother CVD (cardiovascular disease) Brain cancer Heart problem Daughter Breast cancer Sister Breast cancer Son Alive and well Family/Other Myocardial infarction Liver cancer Social History Social History Household Members: Spouse Household Members Other:: Myesha Housing: House Are you a primary home care chaplain to a significant other at home: No Do you presently have visiting nurse or other home services: Yes Alcohol intake: never Patient Tobacco Use Status: Never used Tobacco e-Cigarette/Vaping Use: Never Used Second Hand Smoke Exposure: No Advance Directives: No Advance Directives Information Provided: No service: No Current occupational status: retired Cognitive needs: No Hearing needs: No Vision needs: Yes Physical Exam ED Vital Signs: Vital Signs - 24 hr 10/06/23 14:21 10/06/23 16:39 10/06/23 21:50 Temperature 98 F 97.7 F 97.6 F Pulse Rate 89 68 72 Respiratory Rate 18 14 14 Blood Pressure 135/55 L 124/36 L 130/41 L Pulse Oximetry 99 99 99 Oxygen Delivery Method Room Air Room Air Room Air BMI result Body Mass Index 25.5 VITAL SIGNS: Reviewed. GENERAL: Well developed, well nourished, in no acute distress. HEAD: Normocephalic/atraumatic EYES: PERRLA, EOMI EARS: Ext canals without abnormality NOSE: Nares patent bilateral OROPHARYNX: no oral lesions noted, posterior pharynx clear NECK: Supple, no adenopathy LUNGS: Normal breath sounds. No adventitious sounds or accessory muscle use. SpO2<99> CARDIOVASCULAR: Regular rate and rhythm without noted murmurs, no JVD or lower extremity edema. ABDOMEN: Soft, non-tender, non-distended with bowel sounds. MUSCULOSKELETAL: No tenderness, deformities, or effusions noted on gross inspection. EXTREMITIES: No cyanosis, clubbing or edema. SKIN: Inspection of the skin reveals no rashes NEUROLOGIC: Alert and oriented x 4. Strength and sensation to light touch were grossly intact x 4. Course Course Course Narrative: RME: 78 year-old M w/ PMHx diabetes, ANUJA, IBS, HTN, HLD, GERD, CAD, anemia, presenting to the ED c/o hyperglycemia with POCs > 500. Admits PCP recently switched his diabetic medications from insulin to Farxiga (& 8U insulin in AM). Also states H/H low (with known chronic anemia) & is due for transfusion on POC 355 in triage Labs, UA, T&S ordered Full HPI, ROS and PE to be performed by primary ED provider. Medications Administered Discontinued Medications Generic Name Dose Route Start Last Admin Trade Name Freq PRN Reason Stop Dose Admin Sodium Chloride 1,000 mls @ 999 mls/hr 10/06/23 21:15 10/06/23 23:57 Ns IV 10/06/23 22:15 Infused .Q1H1M PANFILO Infusion Medical Decision Making Medical Decision Making MDM Narrative: 78-year-old male with history and clinical presentation of hyperglycemia on initial evaluation, DDX: Low clinical suspicion for DKA, possibility of HHS, blood loss anemia as a possible source for anemia as patient has a history of esophageal varices as well as GI bleeding I reviewed all investigations hematologic indices appear to be chronically stable with a normocytic anemia no leukocytosis, patient has chronic thrombocytopenia. Coagulation studies demonstrate an elevated PT but INR is within normal limits. Chemistry indices demonstrate a pseudohyponatremia secondary to hyperglycemia, no evidence of metabolic acidosis or anion gap, however there is a new EMMANUEL. Alkaline phosphatase is chronically elevated and otherwise no gross liver enzyme derangements. Plan to start IV with administration of IV fluids, patient really does not want to be admitted and feels comfortable with following up for blood transfusion as scheduled but will proceed with stool guaiac. Will recheck BMP after fluid administration and if improved I am comfortable with discharging the patient home as well as glucose has improved as well. After patient was rehydrated, repeat chemistries demonstrate kidney function is improving and will encourage continued oral intake, glucose levels are also improving, patient remains hemodynamically stable and has scheduled blood transfusion on . His guaiac is positive, it appears that this is chronically present, his hemoglobin is chronically this level and he is otherwise asymptomatic. Patient presented primarily regarding his discontinuation of his insulin. I am copying my note over to his primary care doctor as well as Dr. Nielsen who has arranged for his scheduled blood transfusion. He is otherwise discharged home. Differential Diagnosis Differential Diagnoses: The differential diagnosis associated with the presentation includes Please see the discussion above Admission/Observation Consideration of admission/observation: Escalation of care including admission/observation considered Please see the discussion above Lab Data MDM Lab Attestation statement: I reviewed the patient's lab results. Please see the discussion above 10/06/23 16:43 10/06/23 23:51 Labs: Lab Results 10/06/23 10/06/23 10/06/23 Range/Units 14:33 16:43 21:59 WBC 5.9 (4.8-10.8) X10*3/uL RBC 2.57 L (4.60-5.80) X10*6/uL Hgb 7.4 L (14.0-18.0) g/dl Hct 23.9 L (42.0-52.0) % MCV 93.0 (80.0-98.0) fL MCH 28.8 (27.0-33.0) pg MCHC 31.0 (31.0-36.0) g/dl RDW 18.8 H (11.0-16.0) % Plt Count 87 L (160-400) X10*3/uL MPV 12.4 (9.4-12.4) fL Immature Gran % (Auto) 0.5 H (0.0-0.4) % Neut % (Auto) 77.7 H (45-73) % Lymph % (Auto) 8.8 L (20-40) % [place] % (Auto) 10.5 (2-11) % Eos % (Auto) 1.5 (0-4) % Baso % (Auto) 1.0 (0-2) % Lymph # (Auto) 0.5 L (1.2-4.9) X10*3/uL [place] # (Auto) 0.6 (0.1-1.2) X10*3/uL Eos # (Auto) 0.1 (0.0-0.4) X10*3/uL Baso # (Auto) 0.1 (0.0-0.2) X10*3/uL Abs Immat Gran (auto) 0.03 (0.00-0.03) X10*3/uL Absolute Neuts (auto) 4.6 (2.0-8.3) x10*3/uL Absolute Nucleated RBC 0.000 (0.0-0.012) X10*3/uL Nucleated RBC % (auto) 0.0 (0.0-0.2) /100WBC PT 13.9 H (11.1-13.3) SEC INR 1.1 (0.9-1.1) Sodium 132 L (135-145) mmol/L Potassium 5.0 (3.3-5.1) mmol/L Chloride 104 (96-108) mmol/L Carbon Dioxide 22 (22-29) mmol/L Anion Gap 11 L (12-20) BUN 78 H (9-16) mg/dL Creatinine 2.03 H (0.5-1.4) mg/dL Estim Creat Clear Calc 29.0 Estimated GFR 32 POC Glucose 355 H* 228 H (60-115) mg/dL Random Glucose 406 H* (60-115) mg/dL Calcium 8.7 D (8.4-10.2) mg/dL Magnesium 2.4 (1.6-2.6) mg/dL Total Bilirubin 0.6 (0.0-1.0) mg/dL Direct Bilirubin 0.3 (0.0-0.5) mg/dL AST 32 (5-37) U/L ALT 42 H (0-40) U/L Alkaline Phosphatase 158 H (39-117) U/L Total Protein 6.3 L (6.5-8.0) g/dL Albumin 3.4 L (3.5-5.0) g/dL Beta-Hydroxybutyrate 0.09 (0.02-0.27) mmol/L Stool Occult Blood (NEGATIVE) Blood Type A Positive Antibody Screen NEGATIVE 10/06/23 10/06/23 Range/Units 23:46 23:51 WBC (4.8-10.8) X10*3/uL RBC (4.60-5.80) X10*6/uL Hgb (14.0-18.0) g/dl Hct (42.0-52.0) % MCV (80.0-98.0) fL MCH (27.0-33.0) pg MCHC (31.0-36.0) g/dl RDW (11.0-16.0) % Plt Count (160-400) X10*3/uL MPV (9.4-12.4) fL Immature Gran % (Auto) (0.0-0.4) % Neut % (Auto) (45-73) % Lymph % (Auto) (20-40) % Redwood % (Auto) (2-11) % Eos % (Auto) (0-4) % Baso % (Auto) (0-2) % Lymph # (Auto) (1.2-4.9) X10*3/uL [place]wood # (Auto) (0.1-1.2) X10*3/uL Eos # (Auto) (0.0-0.4) X10*3/uL Baso # (Auto) (0.0-0.2) X10*3/uL Abs Immat Gran (auto) (0.00-0.03) X10*3/uL Absolute Neuts (auto) (2.0-8.3) x10*3/uL Absolute Nucleated RBC (0.0-0.012) X10*3/uL Nucleated RBC % (auto) (0.0-0.2) /100WBC PT (11.1-13.3) SEC INR (0.9-1.1) Sodium 137 (135-145) mmol/L Potassium 5.0 (3.3-5.1) mmol/L Chloride 109 H (96-108) mmol/L Carbon Dioxide 20 L (22-29) mmol/L Anion Gap 13 (12-20) BUN 69 H (9-16) mg/dL Creatinine 1.80 H (0.5-1.4) mg/dL Estim Creat Clear Calc 32.7 Estimated GFR 36 POC Glucose (60-115) mg/dL Random Glucose 198 H (60-115) mg/dL Calcium 8.5 (8.4-10.2) mg/dL Magnesium (1.6-2.6) mg/dL Total Bilirubin (0.0-1.0) mg/dL Direct Bilirubin (0.0-0.5) mg/dL AST (5-37) U/L ALT (0-40) U/L Alkaline Phosphatase (39-117) U/L Total Protein (6.5-8.0) g/dL Albumin (3.5-5.0) g/dL Beta-Hydroxybutyrate (0.02-0.27) mmol/L Stool Occult Blood POSITIVE (NEGATIVE) Blood Type Antibody Screen External Record Review External record reviewed: Outpatient record, Prior outpatient labs and Prior outpatient radiology Chronic Conditions Patient?s care impacted by: Diabetes, Hypertension and Other Chronic anemia Critical Care Time Critical Care Time Critical Care Time: Yes Total Critical Care Time: 60 Attestation: I personally attest to this time spent taking care of the patient. Discharge Plan Discharge Clinical Impression: Hyperglycemia, Anemia Patient Disposition: Home, Self-Care Instructions: Anemia (ED), Diabetic Hyperglycemia (ED) Additional Instructions: 1. Resume all home medications as prescribed. 2. Continue to drink plenty of fluids to help improve your kidney function. 3. Please keep your appointment for blood transfusion on . 4. Please follow-up with primary care doctor by calling the office in the morning, I know you have tried this previously but please make repeated attempts. Return to the ER for any acute worsening of your symptoms. Prescriptions: No Action (DME) pen needle, diabetic [BD Gifty 2nd Gen Pen Needle] 32 gauge x 5/32 needle See Rx Instructions .MEDSUPPLY Qty: 150 5RF Rx Instructions: 4 times a day (DME) FreeStyle Marleni 14 Day [place] Misc See Rx Instructions .Route Qty: 1 0RF Rx Instructions: As directed (DME) FreeStyle Marleni 14 Day Sensor Kit See Rx Instructions .Route Qty: 2 2RF Rx Instructions: As directed (DME) blood-glucose meter [FreeStyle Lite Meter] Kit See Rx Instructions .Route Qty: 1 0RF Rx Instructions: As directed (DME) FreeStyle Test Strip See Rx Instructions .Route Qty: 100 3RF Rx Instructions: three times per day tamsulosin 0.4 mg capsule 0.4 mg PO DAILY 90 Days Qty: 90 1RF alprazolam 0.5 mg tablet 0.5 mg PO BID PRN (Reason: Anxiety) 30 Days Qty: 60 2RF (DME) lancets [FreeStyle Lancets] 28 gauge misc See Rx Instructions .Route Qty: 100 6RF Rx Instructions: As directed three times per day folic acid 800 mcg tablet 0.8 mg PO DAILY 30 Days Qty: 30 3RF bethanechol chloride 25 mg tablet 25 mg PO BID 90 Days Qty: 180 1RF insulin glargine [Basaglar KwikPen U-100 Insulin] 100 unit/mL (3 mL) insulin pen 8 unit subcut QAM 30 Days Qty: 15 0RF (DME) pen needle, diabetic [BD Ultra-Fine Gifty Pen Needle] 32 gauge x 5/32 needle See Rx Instructions .ROUTE .MEDSUPPLY Qty: 50 3RF Rx Instructions: As directed cyanocobalamin (vitamin B-12) 500 mcg Tablet 1,000 mcg PO BEDTIME bumetanide 1 mg tablet 1 mg PO DAILY spironolactone 100 mg tablet 100 mg PO DAILY Protocol: Hold for SBP< HOLD for SBP < : 120 gabapentin 400 mg capsule 400 mg PO BID amoxicillin 500 mg Capsule 500 mg PO BID Qty: 1 0RF (DME) blood pressure test kit-large Kit See Rx Instructions .Route Qty: 1 0RF Rx Instructions: As directed finasteride [Proscar] 5 mg tablet 5 mg PO DAILY 90 Days Qty: 90 1RF furosemide 40 mg tablet 40 mg PO DAILY PRN (Reason: edema) 30 Days Qty: 30 3RF carvedilol 6.25 mg tablet 6.25 mg PO BID 30 Days Qty: 60 3RF Rx Instructions: must administer with a meal/food ezetimibe [Zetia] 10 mg tablet 10 mg PO DAILY Qty: 30 3RF midodrine 10 mg tablet 10 mg PO DAILY PRN (Reason: low blood pressure) 30 Days Qty: 60 3RF Rx Instructions: do not give last dose of day after 6PM or within 4 hrs of bedtime pantoprazole 40 mg tablet,delayed release (DR/EC) 40 mg PO DAILY Qty: 30 3RF Farxiga 10 mg tablet 10 mg PO DAILY 30 Days Qty: 30 3RF atorvastatin 80 mg tablet 80 mg PO BEDTIME 30 Days Qty: 30 3RF aspirin [Adult Aspirin Regimen] 81 mg tablet,delayed release (DR/EC) 81 mg PO DAILY 30 Days Qty: 30 3RF Hold Instructions: hold aspirin until 09/01 ferrous sulfate 325 mg (65 mg iron) tablet,delayed release (DR/EC) 325 mg PO DAILY Referrals: Wanda Nielsen MD [Physician] - Roberto Carlos Cisneros PA-C [Primary Care Provider] -
[2023-10-06 14:37] LABS: Glucose, Whole Blood 355 mg/dL (60-115)
[2023-10-06 16:39] VITALS: BP 124/36; PULSE 68; RESP 14; TEMP 36.5; O2SAT 99
[2023-10-06 16:52] LABS: MANUAL DIFF FLAG NO
[2023-10-06 17:00] LABS: Basophils Absolute Auto 0.1 X10*3/uL (0.0-0.2); Eosinophils Absolute Auto 0.1 X10*3/uL (0.0-0.4); Eosinophils Percent Auto 1.5 % (0-4); Hematocrit 23.9 % (42.0-52.0); Hemoglobin 7.4 g/dl (14.0-18.0); Imm Gran Abs Auto 0.03 X10*3/uL (0.00-0.03); Imm Gran Pct Auto 0.5 % (0.0-0.4); Lymphocytes Absolute Auto 0.5 X10*3/uL (1.2-4.9); Lymphocytes Percent Auto 8.8 % (20-40); Mean Corpuscular Hemoglobin 28.8 pg (27.0-33.0); Mean Platelet Volume 12.4 fL (9.4-12.4); Monocytes Absolute Auto 0.6 X10*3/uL (0.1-1.2); Monocytes Percent Auto 10.5 % (2-11); Neutrophils Absolute Auto 4.6 x10*3/uL (2.0-8.3); Neutrophils Percent Auto 77.7 % (45-73); Red Blood Count 2.57 X10*6/uL (4.60-5.80); Red Cell Distribution Width 18.8 % (11.0-16.0); White Blood Count 5.9 X10*3/uL (4.8-10.8)
[2023-10-06 17:02] LABS: INTERNATIONAL NORM RATIO 1.1 (0.9-1.1); Prothrombin Time 13.9 SEC (11.1-13.3)
[2023-10-06 17:03] LABS: Platelet Count 87 X10*3/uL (160-400)
[2023-10-06 17:13] LABS: Alanine Aminotransferase 42 U/L (0-40); Albumin Level 3.4 g/dL (3.5-5.0); Alkaline Phosphatase 158 U/L (39-117); Aspartate Amino Transferase 32 U/L (5-37); Beta-Hydroxybutyrate 0.09 mmol/L (0.02-0.27); Bilirubin Direct 0.3 mg/dL (0.0-0.5); Bilirubin Total 0.6 mg/dL (0.0-1.0); Magnesium 2.4 mg/dL (1.6-2.6); Total Protein 6.3 g/dL (6.5-8.0)
[2023-10-06 17:17] LABS: Anion Gap 11 (12-20); Blood Urea Nitrogen 78 mg/dL (9-16); Calcium 8.7 mg/dL (8.4-10.2); Carbon Dioxide 22 mmol/L (22-29); Chloride 104 mmol/L (96-108); Estimated Glomerular Filt Rate 32; Glucose Random 406 mg/dL (60-115); Sodium 132 mmol/L (135-145)
[2023-10-06 21:50] VITALS: BP 130/41; PULSE 72; RESP 14; TEMP 36.4; O2SAT 99
[2023-10-06 22:03] LABS: Glucose, Whole Blood 228 mg/dL (60-115)
--- NOTE | 2023-10-06 22:28 | PC.NURSE ---
Pt difficult stick, IV not obtained at this time. Charge nurse will attempt.
[2023-10-06] MEDS: 0.9 % Sodium Chloride 1,000 ML 999 ML IV (22:48)
[2023-10-06 23:51] LABS: OBS Int Ctl Valid YES; OBS1 POSITIVE (NEGATIVE)
[2023-10-07 00:11] LABS: Anion Gap 13 (12-20); Blood Urea Nitrogen 69 mg/dL (9-16); Calcium 8.5 mg/dL (8.4-10.2); Carbon Dioxide 20 mmol/L (22-29); Chloride 109 mmol/L (96-108); Creatinine Clr Calc Pharmacy 32.7; Estimated Glomerular Filt Rate 36; Glucose Random 198 mg/dL (60-115); Sodium 137 mmol/L (135-145)
[2023-10-07 00:30] VITALS: BP 116/53; PULSE 65; RESP 16; O2SAT 99
[2023-10-07 00:39] LABS: Appearance Urine Turbid; Color Urine Yellow; Glucose Urine UA >=1000 mg/dL (Negative); Leukocyte Esterase Urine Moderate (2+) (Negative); Nitrite Urine Negative (Negative); PH 5.5 (5.0-9.0); UMIC TRIGGER UACC YES; Urine Blood Small (1+) (Negative); Urine Ketones Negative (Negative); Urine Protein Negative (Neg-Trace)
[2023-10-07 00:51] LABS: Bacteria Urine None Seen (None Seen); Hyaline Casts Urine 0-2 /LPF (0-2); Squamous Epithelial Cell Urine 0-2 /HPF (0-2); UACC Culture Trigger YES; WBC Clumps Urine Present; WBC Urine >50 /HPF (0-5)
== END 2023-10-07 00:41 | disposition home or self-care (01) ==
PROVIDERS: Physician Assistant; Emergency Provider Student in an Organized Health Care Education/Training Program; PCP Physician Assistant
DX: E11.65 Type 2 diabetes mellitus with hyperglycemia (principal); D64.9 Anemia, unspecified; I10 Essential (primary) hypertension; E78.5 Hyperlipidemia, unspecified; R06.02 Shortness of breath; Z95.0 Presence of cardiac pacemaker; Z85.46 Personal history of malignant neoplasm of prostate; Z79.02 Long term (current) use of antithrombotics/antiplatelets; Z79.899 Other long term (current) drug therapy; Z79.4 Long term (current) use of insulin
CPT/HCPCS: 36415; 80048; 80076; 81001; 82010; 82272; 82947; 83735; 85025; 85610; 86850; 86900; 86901; 87086; 87088; 96360; 99284

== ENCOUNTER 2023-10-13 08:06 | Outpatient (REF) | payer MEDICARE, SELFPAY ==
[2023-10-13 11:54] LABS: MANUAL DIFF FLAG NO
[2023-10-13 11:57] LABS: Basophils Absolute Auto 0.1 X10*3/uL (0.0-0.2); Basophils Percent Auto 1.2 % (0-2); Eosinophils Absolute Auto 0.1 X10*3/uL (0.0-0.4); Eosinophils Percent Auto 2.9 % (0-4); Hematocrit 25.4 % (42.0-52.0); Imm Gran Abs Auto 0.01 X10*3/uL (0.00-0.03); Imm Gran Pct Auto 0.2 % (0.0-0.4); Lymphocytes Absolute Auto 0.6 X10*3/uL (1.2-4.9); Lymphocytes Percent Auto 14.5 % (20-40); Mean Corpuscular HGB Conc 31.5 g/dl (31.0-36.0); Mean Corpuscular Hemoglobin 29.1 pg (27.0-33.0); Mean Corpuscular Volume 92.4 fL (80.0-98.0); Mean Platelet Volume 11.8 fL (9.4-12.4); Monocytes Absolute Auto 0.5 X10*3/uL (0.1-1.2); Neutrophils Absolute Auto 2.8 x10*3/uL (2.0-8.3); Neutrophils Percent Auto 68.2 % (45-73); Red Blood Count 2.75 X10*6/uL (4.60-5.80); Red Cell Distribution Width 16.8 % (11.0-16.0); White Blood Count 4.1 X10*3/uL (4.8-10.8)
[2023-10-13 11:59] LABS: Platelet Count 87 X10*3/uL (160-400)
== END 2023-10-13 08:07 | disposition home or self-care (01) ==
LOC: HO.LHD 08:06
PROVIDERS: Visit Provider Internal Medicine
DX: D64.9 Anemia, unspecified (principal)
CPT/HCPCS: 36415; 85025

== ENCOUNTER 2023-10-20 08:11 | Outpatient (REF) | payer MEDICARE, SELFPAY | END 2023-10-20 08:12 | disposition home or self-care (01) | LOC: HO.LHD 08:11 | PROVIDERS: Visit Provider Internal Medicine | DX: Z13.89 Encounter for screening for other disorder (principal) ==

== ENCOUNTER 2023-10-21 13:26 | Outpatient (AMB) | payer MEDICARE, SELFPAY ==
--- NOTE | 2023-10-21 13:37 | A.OFFPC_ITS ---
Vital Signs 10/21/23 13:38 Height 5 ft 9 in Weight 79.832 kg BMI 26.0 BP 130/50 L Blood Pressure Location Lt brachial Position Sitting Pulse 80 Pulse Source Pulse Oximeter Pulse Oximetry (%) 98 Oxygen Delivery Method Room Air Intake Visit Reasons: [facility] Anemia Intake Note: Patient here for follow up Anemia, DM, BP Senior Management Consultant Required: No Accompanied by: Self / Same As Patient Allergies KARL Inhibitors Allergy (Severe, Verified 10/21/23 13:44) Angioedema dextran 40 [DEXTRAN 40] Allergy (Intermediate, Verified 10/21/23 13:44) tachycardia latex [LATEX] Allergy (Mild, Verified 10/21/23 13:44) BLISTERS lisinopril [From Zestril] Allergy (Mild, Verified 10/21/23 13:44) Unknown Iodinated Contrast Media [CONTRAST,IV] Allergy (Unknown, Verified 10/21/23 13:44) UNKNOWN Tobacco use date assessed: 10/21/23 Fall risk assessment: 1 Fall in past year Last assessed Fall Risk: 10/21/23 Dental Screening Dental Screen Date: 10/21/23 Did you have a dental visit in the last 12 months?: No Did you have a dental problem in the last 6 months where you did not have access to dental care?: No Was dental information given to patient?: No HPI HPI Comments History of Present Illness Details 78-year-old male with history of hepatic cirrhosis complicated by esophageal varices and ascites, insulin-dependent type 2 diabetes, hypertension, ANUJA on CPAP, s/p bioprosthetic TAVR, CAD, history of endocarditis on amoxicillin, s/p pacemaker among others presents to the office today for hospital discharge follow-up. He was admitted to [facility] from 08/25-08/28 due to mechanical fall with acute left humerus fracture and hematoma as well as acute on chronic blood-loss anemia. He did require transfusion of 2 units packed red blood cells. He was also started on IV PPI and octreotide as well as ceftriaxone due to concern for GI bleed as stool occult blood was positive. H/H in the ED was 6.6/22.4%. He was evaluated by Gastroenterology who felt anemia was related to blood loss from hematoma and did not recommend inpatient endoscopy but recommended outpatient follow-up if needed. He has also been following with Orthopedics and is no longer in a sling and has been working with physical therapy at home. Has been following with Dr. Nielsen in Hematology as well as gastroenterology. Underwent EGD 09/02 with band ligation x3 for esophageal varices. He was also hospitalized at [facility] from 08/12-08/15 due to multifactorial volume overload with 20 lb weight gain. This was thought to be secondary to decompensated liver cirrhosis, diastolic heart failure, and kidney disease. Echo earlier in July at [facility] showed EF 65-75% with some diastolic dysfunction. He was diuresed with Lasix 40 mg daily x3 days and was also given albumin x6 doses. He was followed by Nephrology who recommended transitioning to Bumex 1 mg daily. During both admissions, he was continued on IV ceftriaxone and amoxicillin for treatment of strep bacteremia secondary to epidural abscess with C5-C6 osteomyelitis initially diagnosed in 02/03. Cardiac CT was positive for vegetations which per Cardiology did not affect the TAVR valve and recommended conservative management with regard to the TAVR valve. Per ID, recommended chronic suppressive antibiotic therapy. He continues on amoxicillin TID. During [facility] hospitalization, A1c was found to be 5.5% and all insulin was discontinued due to hypoglycemia. He had been taking 40 units tresiba nightly, novolog 10 units TID with meals, and was discharged on xiga only. Patient states he resumed his novolog on his own and is using 10 units novolog TID with meals. He states fasting glucose levels are still 210-335 and prandial glucose levels remain uncontrolled. No hypoglyemic episodes. He is very concerned about his glucose levels. There has also been concern about progressive frailty with functional decline expressed by multiple specialists on review of chart. He assists in the care of his at home who has medical and cognitive issues. Call placed to patient's son, Blaise, who stated that [facility] is involved and services are being offered to the patient. 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 Streptococcal bacteremia Fracture of left humerus History of prostate cancer Acute lower gastrointestinal bleeding COVID-19 vaccine series completed Hypertension Dyslipidemia Diabetic nephropathy associated with type 2 diabetes mellitus Diabetic 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 associated with type 2 diabetes mellitus nursing home (current) use of insulin Diabetes type 2, uncontrolled Varices of esophagus determined by endoscopy Esophageal varices without bleeding KOEHLER (dyspnea on exertion) Chronic fatigue Iron deficiency anemia CAD (coronary artery disease) ANUJA on CPAP Prostate cancer Spinal stenosis On beta kayy at home IBS (irritable colon syndrome) Aortic stenosis HTN (hypertension) DMII (diabetes mellitus, type 2) Polyneuropathy GERD (gastroesophageal reflux disease) Surgical History S/P infectious endocarditis H/O cataract extraction Hx of endoscopy History of colonoscopy Hx of esophagogastroduodenoscopy Hx of colonoscopy History of surgery History of transurethral resection of prostate History of surgery History of heart artery stent Family History Father CVD (cardiovascular disease) Past heart attack Mother CVD (cardiovascular disease) Brain cancer Heart problem Daughter Breast cancer Sister Breast cancer Son Alive and well Family/Other Myocardial infarction Liver cancer Social History Household Members: Spouse Household Members Other:: Myesha Housing: House Are you a primary before and after school daycare worker to a significant other at home: No Do you presently have visiting nurse or other home services: Yes Alcohol intake: never Patient Tobacco Use Status: Never used Tobacco e-Cigarette/Vaping Use: Never Used Second Hand Smoke Exposure: No service: No Current occupational status: retired Cognitive needs: No Hearing needs: No Vision needs: Yes Questionnaire Thrive Questionnaire Date Thrive assessed: 09/08/23 GISELA-7 AMB Questionnaire GISELA-7 Date GISELA - 7 assessed: 09/08/23 Source: Developed by Drs. Andrew Miranda, Cristiane Zabala, Jose Jenkins and colleagues, with an educational tanya from [employer]. Review of Systems Const All systems reviewed & are unremarkable except as noted in HPI and below Physical exam (Primary Care) Vital Signs: Last Vital Signs Pulse 80 10/21/23 13:38 BP 130/50 L 10/21/23 13:38 Pulse Ox 98 10/21/23 13:38 Oxygen Delivery Method Room Air 10/21/23 13:38 BMI result Body Mass Index 26.0 Tobacco/Smoking Status: Tobacco use Status Tobacco use date assessed 10/21/23 10/21/23 13:52 Patient Tobacco Use Status Never used Tobacco 10/21/23 13:42 e-Cigarette/Vaping Use Never Used 10/21/23 13:42 Thrive Assessment: Date of Thrive Assessment Date Thrive assessed 09/08/23 10/21/23 13:42 Const Other: Constitutional - Awake and Alert, No apparent distress Eyes - PERRLA, EOMI Cardiovascular - S1S2, RRR, No edema Respiratory - Normal lung expansion, Normal respiratory effort, No respiratory distress, CTA bilaterally Gastrointestinal - NT / ND; +BS; No rebound or guarding Extremities - no calf tenderness bilaterally, no swelling Skin - Warm/Dry Neurological - Alert & oriented x3 Psychological - Appropriate affect Results Reviewed Results Reviewed: Time spent reviewing cbc, bmp, h&p, Discharge summary, GI office note, hematology office note. As well as time spent with patient, documenting, and in discussion with son via phone. Assessment and Plan Assessment & Plan (1) Acute blood loss anemia: Code(s): D62 - Acute posthemorrhagic anemia Plan: Acute blood loss due to hematoma related to L humerus fracture and received 2 units PRBC. Has chronic pernicious anemia. Continue following with hematology and gastroenterology. H/H 2/2 was 8.3/26.5%, consistent with baseline and is stable. (2) Streptococcal bacteremia: Code(s): R78.81 - Bacteremia; B95.5 - Unspecified streptococcus as the cause of diseases classified elsewhere Plan: Initially diagnosed 01/2023 due to osteomyelitis C5-C6 with epidural abscess complicated by infective endocarditis 07/2023. Completed IV ceftriaxone 08/28 while hospitalized at each . VNA removed PICC line. He should continue on amoxicillin 500 mg b.i.d.. Continue outpatient follow-up with [facility] Infectious Disease. May require long-term suppressive therapy. Infective endocarditis did not adversely affect TAVR per [facility] Card[facility]. He will continue following outpatient with [facility] Card[facility]. (3) Fracture of left humerus: Code(s): S42.302A - Unspecified fracture of shaft of humerus, left arm, initial encounter for closed fracture Plan: Routine healing. Patient has full mobility of left upper extremity. Continue with with physical therapy. No longer requiring sling for comfort. Follow up with Orthopedic surgery as needed. (4) Diabetic 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 associated with type 2 diabetes mellitus: Code(s): E11.42 - Type 2 diabetes mellitus with diabetic 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 Plan: Hemoglobin A1c while admitted was 5.5% and as a result insulin was discontinued. He has resumed NovoLog 10 units t.i.d. with meals on his own and continues on Farxiga. Glucose levels are now uncontrolled with fasting levels 210-335. Will resume Tresiba at 10 units nightly. He is advised to continue NovoLog 10 units t.i.d. with meals as well as Farxiga. Check glucose levels 3 times daily with meals and record. He is advised to increase Tresiba to 20 units nightly if fasting glucose levels remain >150 in 1 week. Written instructions provided to patient and he verbally expresses understanding. Also discussed with patient's son, Blaise. Follow up with PCP on 11/10 as scheduled. Plan Diabetes- Last A1c was 5.5% so Tresiba (night time long acting insulin) was discontinued. However, now glucose levels are high 210-335. We will restart you on a LOWER DOSE of tresiba. Start taking 10 units tresiba nightly. Check and log glucose levels. If fasting glucose level is greater than 150 after one week, then increase to 20 units nightly. Stay at this dose and follow up in the office in 2-3 months. If you lower sugars too quickly, you will feel sick. Continue 10 units novolog three times daily with meals. Continue farxiga. Monitor for signs of low blood sugar including jitteriness, sweats, agitation, dizziness, blurred vision. Orders: Orders Basic Metabolic Panel 10/21/23 N17.9 - Acute kidney failure, unspecified Medications: New insulin degludec (Tresiba FlexTouch U-100 insulin) 10 units (0.1 mL) subcut BEDTIME 15 mL 0RF Refilled lancets (FreeStyle Lancets) As directed three times per day 100 ea 6RF Coding Level of Care Code Est Pt Level 5 (43347) Diagnoses Acute blood loss anemia D62 Streptococcal bacteremia R78.81; B95.5 Fracture of left humerus S42.302A Diabetic 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 associated with type 2 diabetes mellitus E11.42 Time Spent (min) 45
[2023-10-21 13:38] VITALS: BP 130/50; PULSE 80; O2SAT 98; BMI 26.0
== END 2023-10-21 14:30 | disposition home or self-care (01) ==
PROVIDERS: PCP Physician Assistant; Visit Provider Physician Assistant
DX: D62 Acute posthemorrhagic anemia (principal); R78.81 Bacteremia; B95.5 Unspecified streptococcus as the cause of diseases classified elsewhere; S42.302A Unspecified fracture of shaft of humerus, left arm, initial encounter for closed fracture
CPT/HCPCS: 99215

== ENCOUNTER 2023-10-31 11:21 | Emergency (ER) | payer MEDICARE, SELFPAY ==
--- NOTE | ~2023-10-31 | CT_ITS ---
EXAMINATION: CT CERVICAL SPINE CLINICAL INFORMATION: Reason for Exam Mechanical fall COMPARISON: Prior CT July 2023 TECHNIQUE: Computed axial sagittal and coronal images acquired using department's standard protocol. This CT examination was performed using dose optimization techniques as appropriate, variously including the following: *Automated exposure control *Adjustment of mA and/or kV according to patient size (this includes techniques or standardized protocols for targeted exams where dose is matched to indication/reason for exam; i.e. extremities or head) *Use of iterative reconstruction technique CONTRAST: None DLP: 982 mGy-cm FINDINGS: SKULL BASE: Visualized structures at skull base are normal, Included facial sinuses are clear, CERVICAL VERTEBRAE: All cervical vertebrae identified, stable old compression fracture/fusion of C5 and C6 unchanged from prior exams. No CT evidence of new fractures. Atlantoaxial joint: The atelectasis, properly articulating with the odontoid process and occipital condyles. The odontoid process is centrally positioned. Reversal of normal cervical lordosis might be positional or chronic spasm pain. Posterior spinous processes are intact. No prevertebral soft tissue swelling. DISCS: Narrowing of disc spaces and developed osteophyte from the edges of endplates at multiple levels suggest underlying degenerative disc disease there are developed osteophytes protruding encroaching on the neural foramen bilaterally multiple levels. If patient has neurological symptoms these can be evaluated by MRI to assess for possible nerve impingement's. Included paranasal, cervical lymph nodes, strap muscles and thyroids unremarkable. Included adjacent lung apices are clear. CT/CT cervical spine wo IV con IMPRESSION: 1. No CT evidence of acute fracture. 2. Stable old compression fracture/fusion of C5 and C6. 3. Narrowing of disc spaces and developed osteophyte from the edges of endplates at multiple levels suggest underlying degenerative disc disease. 4. Reversal of normal cervical lordosis might be positional or chronic spasm pain. 5. Developed osteophytes encroaching on the neural foramen bilaterally at multiple levels. If patient has neurological symptoms these can be evaluated by MRI to assess for possible nerve impingement's.
--- NOTE | ~2023-10-31 | CT_ITS ---
CT head/brain wo IV con CLINICAL INFORMATION: Reason for Exam Mechanical fall COMPARISON: July 2023 TECHNIQUE: Department standard protocol. This CT examination was performed using dose optimization techniques as appropriate, variously including the following: *Automated exposure control *Adjustment of mA and/or kV according to patient size (this includes techniques or standardized protocols for targeted exams where dose is matched to indication/reason for exam; i.e. extremities or head) *Use of iterative reconstruction technique DLP: 982 mGy-cm FINDINGS: CEREBRAL HEMISPHERES: There is no evidence of intra-axial or extra-axial mass, hemorrhage or acute infarct. BRAIN PARENCHYMA: Deep white matter and paraventricular hypoattenuation, nonspecific; most likely changes secondary to chronic ischemia due to microvascular angiopathy. SUBDURAL SPACE: Calcified left anterior dural based mass 1.4 cm most likely calcified meningioma this has not changed from prior exam. No evidence of a bleed. BASAL GANGLIA AND PINEAL GLAND: Unremarkable VENTRICLES: Symmetric and normal in size. CEREBELLUM AND BRAINSTEM: No space-occupying mass, hemorrhage or acute infarct. CEREBELLOPONTINE ANGLES: No lesion found. ORBITS: No intraorbital mass. VESSELS: Unremarkable SKULL BASE: Unremarkable INCLUDED SINUSES AT SKULL BASE: Clear SKULL AND SKIN: No fracture or bone lesion found. CT/CT head/brain wo IV con IMPRESSION: 1. Deep white matter and periventricular hypoattenuation, nonspecific; most likely sequela of chronic microvascular angiopathy ischemia. 2. Calcified left anterior dural based mass 1.4 cm most likely calcified meningioma this has not changed from prior exam. 3. No evidence of a bleed.
[2023-10-31 11:28] VITALS: BP 132/58; PULSE 81; O2SAT 98
[2023-10-31 11:40] VITALS: BP 120/39; PULSE 77; RESP 16; TEMP 36.5; O2SAT 98; BMI 26.3
--- NOTE | 2023-10-31 11:44 | ED_ITS ---
HPI - Fall General Chief Complaint: Fall Stated Complaint: FALL + HEAD STRIKE Time Seen by Provider: 10/31/23 11:23 Source: patient Mode of arrival: EMS Limitations: no limitations History of Present Illness HPI Narrative: Patient came after mechanical fall apparently patient walks with walker was in the kitchen picked up a plate lifting one of his hand from the walker and lost balance fell backwards hitting his top of the head to the edge of the floor came with laceration on the top of the head no loss of consciousness no other injuries Related Data Home Medications Medication Instructions Recorded Confirmed cyanocobalamin (vitamin B-12) 500 1,000 mcg PO BEDTIME 12/29/22 10/23/23 mcg tablet ferrous sulfate 325 mg (65 mg 325 mg PO DAILY 04/29/23 10/23/23 iron) tablet,delayed release bumetanide 1 mg tablet 1 mg PO DAILY 08/25/23 10/23/23 gabapentin 400 mg capsule 400 mg PO BID 08/25/23 10/23/23 spironolactone 100 mg tablet 100 mg PO DAILY 08/25/23 10/23/23 Previous Rx's Medication Instructions Recorded blood pressure test kit-large #1 ea 11/21/21 blood-glucose meter (FreeStyle #1 ea 10/03/22 Lite Meter kit) flash glucose scanning reader #1 ea 10/03/22 (FreeStyle Marleni 14 Day [place]) flash glucose sensor (BreconRidgeStyle #2 ea 10/03/22 Marleni 14 Day Sensor kit) aspirin 81 mg tablet,delayed 81 mg PO DAILY 30 days #30 tabs 03/11/23 release (Adult Aspirin Regimen) atorvastatin 80 mg tablet 80 mg PO BEDTIME 30 days #30 tabs 03/11/23 carvedilol 6.25 mg tablet 6.25 mg PO BID 30 days #60 tabs 03/11/23 finasteride 5 mg tablet (Proscar) 5 mg PO DAILY 90 days #90 tabs 03/11/23 furosemide 40 mg tablet 40 mg PO DAILY PRN edema 30 days 03/11/23 #30 tabs midodrine 10 mg tablet 10 mg PO DAILY PRN low blood 03/11/23 pressure 30 days #60 tabs pantoprazole 40 mg tablet,delayed 40 mg PO DAILY #30 tabs 03/11/23 release tamsulosin 0.4 mg capsule 0.4 mg PO DAILY 90 days #90 caps 06/11/23 alprazolam 0.5 mg tablet 0.5 mg PO BID PRN Anxiety 30 days 06/22/23 #60 tabs folic acid 800 mcg tablet 0.8 mg PO DAILY 30 days #30 tabs 07/30/23 amoxicillin 500 mg capsule 500 mg PO BID #1 cap 08/28/23 bethanechol chloride 25 mg tablet 25 mg PO BID 90 days #180 tabs 09/15/23 dapagliflozin propanediol 10 mg 10 mg PO DAILY 30 days #30 tabs 10/07/23 tablet (Farxiga) pen needle, diabetic 32 gauge x #150 ea 10/07/23 (BD Gifty 2nd Gen Pen Needle) pen needle, diabetic 32 gauge x #50 ea 10/07/23 (BD Ultra-Fine Gifty Pen Needle) insulin aspart U-100 100 unit/mL 5 unit (0.05 mL) subcut TID 30 10/12/23 (3 mL) subcutaneous pen (Novolog days #15 mL FlexPen U-100 Insulin aspart) ezetimibe 10 mg tablet (Zetia) 10 mg PO DAILY #30 tabs 10/13/23 insulin degludec 100 unit/mL (3 10 unit (0.1 mL) subcut BEDTIME 10/21/23 mL) subcutaneous pen (Tresiba #15 mL FlexTouch U-100 insulin) lancets 28 gauge (FreeStyle #100 ea 10/21/23 Lancets) blood sugar diagnostic (FreeStyle #100 ea 10/28/23 Test strips) Allergies Allergy/AdvReac Type Severity Reaction Status Date / Time KARL Inhibitors Allergy Severe Angioedema Verified 10/21/23 13:44 dextran 40 [DEXTRAN 40] Allergy Intermediate tachycardia Verified 10/21/23 13:44 latex [LATEX] Allergy Mild BLISTERS Verified 10/21/23 13:44 lisinopril [From Zestril] Allergy Mild Unknown Verified 10/21/23 13:44 Iodinated Contrast Media Allergy Unknown UNKNOWN Verified 10/21/23 13:44 [CONTRAST,IV] Review of Systems 2 Review of Systems: Yes all other systems are reviewed and are negative PMFSH Past Medical History Medical History 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 Streptococcal bacteremia Fracture of left humerus History of prostate cancer Acute lower gastrointestinal bleeding COVID-19 vaccine series completed Hypertension Dyslipidemia Diabetic nephropathy associated with type 2 diabetes mellitus Diabetic 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 associated with type 2 diabetes mellitus 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 Diabetes type 2, uncontrolled Varices of esophagus determined by endoscopy Esophageal varices without bleeding KOEHLER (dyspnea on exertion) Chronic fatigue Iron deficiency anemia CAD (coronary artery disease) ANUJA on CPAP Prostate cancer Spinal stenosis On beta kayy at home IBS (irritable colon syndrome) Aortic stenosis HTN (hypertension) DMII (diabetes mellitus, type 2) Polyneuropathy GERD (gastroesophageal reflux disease) Surgical History S/P infectious endocarditis H/O cataract extraction Hx of endoscopy History of colonoscopy Hx of esophagogastroduodenoscopy Hx of colonoscopy History of surgery History of transurethral resection of prostate History of surgery History of heart artery stent Family History Family History Father CVD (cardiovascular disease) Past heart attack Mother CVD (cardiovascular disease) Brain cancer Heart problem Daughter Breast cancer Sister Breast cancer Son Alive and well Family/Other Myocardial infarction Liver cancer Social History Social History Household Members: Spouse Household Members Other:: Myesha Housing: House Are you a primary healthcare economics manager to a significant other at home: No Do you presently have visiting nurse or other home services: Yes Alcohol intake: never Patient Tobacco Use Status: Never used Tobacco e-Cigarette/Vaping Use: Never Used Second Hand Smoke Exposure: No Advance Directives: No Advance Directives Information Provided: No service: No Current occupational status: retired Cognitive needs: No Hearing needs: No Vision needs: Yes Physical Exam 2 Vital Signs: Vital Signs: Last Vital Signs Temp 97.7 F 10/31/23 11:40 Pulse 77 10/31/23 11:40 Resp 16 10/31/23 11:40 BP 120/39 L 10/31/23 11:40 Pulse Ox 98 10/31/23 11:40 O2 Del Method Room Air 10/31/23 11:40 BMI result Body Mass Index 26.3 Appearance: Alert. Oriented X3. No acute distress. Eyes: PERRLA, No Nystagmus ENT: Pharynx normal. Oral Mucosa moist ,superficial laceration to top of the head Neck: Normal inspection. Neck supple. No midline tenderness in cervical collar CVS: Normal heart rate and rhythm. Pulses normal. Respiratory: No respiratory distress. Equal air entry bilateral, no wheezing/rales/rhonchi Abdomen: Soft and nontender. Bowel sounds are present, Skin: Skin warm and dry. Normal skin color. Normal skin turgor. Extremities: No lower extremity edema. No calf tenderness pelvis stable Neuro: Oriented X 3. No motor deficit. HEENT: Head images: 1. 5 cm long laceration Procedures Laceration Laceration 1: Site: scalp Side (If applicable): right Size (cm): 5 Description: linear Depth: simple, single layer Skin layer closed with: other ([place] # 8) Discharge Plan Discharge Clinical Impression: Fall, Laceration of scalp Patient Disposition: Home, Self-Care Instructions: Laceration (ED), Fall Prevention for Older Adults (ED) Additional Instructions: Care and cautions as advised Staple removal in 7-10 days Prescriptions: No Action (DME) FreeStyle Marleni 14 Day [place] Misc See Rx Instructions .Route Qty: 1 0RF Rx Instructions: As directed (DME) FreeStyle Marleni 14 Day Sensor Kit See Rx Instructions .Route Qty: 2 2RF Rx Instructions: As directed (DME) blood-glucose meter [FreeStyle Lite Meter] Kit See Rx Instructions .Route Qty: 1 0RF Rx Instructions: As directed tamsulosin 0.4 mg capsule 0.4 mg PO DAILY 90 Days Qty: 90 1RF alprazolam 0.5 mg tablet 0.5 mg PO BID PRN (Reason: Anxiety) 30 Days Qty: 60 2RF folic acid 800 mcg tablet 0.8 mg PO DAILY 30 Days Qty: 30 3RF bethanechol chloride 25 mg tablet 25 mg PO BID 90 Days Qty: 180 1RF (DME) pen needle, diabetic [BD Ultra-Fine Gifty Pen Needle] 32 gauge x 5/32 needle See Rx Instructions .ROUTE .MEDSUPPLY Qty: 50 3RF Rx Instructions: As directed (DME) pen needle, diabetic [BD Gifty 2nd Gen Pen Needle] 32 gauge x 5/32 needle See Rx Instructions .MEDSUPPLY Qty: 150 5RF Rx Instructions: 4 times a day Farxiga 10 mg tablet 10 mg PO DAILY 30 Days Qty: 30 3RF insulin aspart U-100 [Novolog FlexPen U-100 Insulin] 100 unit/mL (3 mL) insulin pen 5 unit subcut TID 30 Days Qty: 15 1RF Rx Instructions: see directions per sliding scale subcutaneously 3 times a day; Blood sugar 70-130- take 0 units Blood sugar 131-180- take 4 units Blood sugar 181-240- take 8 units Blood sugar 241-to 300- take 10 units Blood sugar 301-to 350- take 12 units Blood sugar 351-400- take 16 units Blood sugar over 400 please call PCP ezetimibe [Zetia] 10 mg tablet 10 mg PO DAILY Qty: 30 3RF (DME) FreeStyle Test Strip See Rx Instructions .Route Qty: 100 3RF Rx Instructions: three times per day cyanocobalamin (vitamin B-12) 500 mcg Tablet 1,000 mcg PO BEDTIME bumetanide 1 mg tablet 1 mg PO DAILY spironolactone 100 mg tablet 100 mg PO DAILY Protocol: Hold for SBP< HOLD for SBP < : 120 gabapentin 400 mg capsule 400 mg PO BID amoxicillin 500 mg Capsule 500 mg PO BID Qty: 1 0RF (DME) lancets [FreeStyle Lancets] 28 gauge misc See Rx Instructions .Route Qty: 100 6RF Rx Instructions: As directed three times per day insulin degludec [Tresiba FlexTouch U-100] 100 unit/mL (3 mL) insulin pen 10 unit subcut BEDTIME Qty: 15 0RF (DME) blood pressure test kit-large Kit See Rx Instructions .Route Qty: 1 0RF Rx Instructions: As directed finasteride [Proscar] 5 mg tablet 5 mg PO DAILY 90 Days Qty: 90 1RF furosemide 40 mg tablet 40 mg PO DAILY PRN (Reason: edema) 30 Days Qty: 30 3RF carvedilol 6.25 mg tablet 6.25 mg PO BID 30 Days Qty: 60 3RF Rx Instructions: must administer with a meal/food midodrine 10 mg tablet 10 mg PO DAILY PRN (Reason: low blood pressure) 30 Days Qty: 60 3RF Rx Instructions: do not give last dose of day after 6PM or within 4 hrs of bedtime pantoprazole 40 mg tablet,delayed release (DR/EC) 40 mg PO DAILY Qty: 30 3RF atorvastatin 80 mg tablet 80 mg PO BEDTIME 30 Days Qty: 30 3RF aspirin [Adult Aspirin Regimen] 81 mg tablet,delayed release (DR/EC) 81 mg PO DAILY 30 Days Qty: 30 3RF Hold Instructions: hold aspirin until 09/01 ferrous sulfate 325 mg (65 mg iron) tablet,delayed release (DR/EC) 325 mg PO DAILY
--- NOTE | 2023-10-31 11:57 | PC.NURSE ---
alert and oriented, respirations even and unlabored. collared by ems. patient cleaned of blood at this time, resting in bed with call allen in reach. patient denies any pain at this time, able to move arms and legs with no complaints.
--- NOTE | 2023-10-31 14:25 | PC.NURSE ---
provider cleared patient of c-collar. cleaning patient's head, laceration noted to top of scalp, saline soaked gauze in place to remove blood.
[2023-10-31 15:32] VITALS: BP 113/42; PULSE 72; RESP 18; O2SAT 95
[2023-10-31] MEDS: Bacitracin Oint 0.9 GM PACKET 1 APPL TOPICAL (15:32)
--- NOTE | 2023-10-31 15:35 | PC.NURSE ---
ambulating with steady gait utilizing walker
== END 2023-10-31 15:54 | disposition home or self-care (01) ==
PROVIDERS: Emergency Provider Internal Medicine; PCP Physician Assistant
DX: S01.01XA Laceration without foreign body of scalp, initial encounter (principal); W01.198A Fall on same level from slipping, tripping and stumbling with subsequent striking against other object, initial encounter; E11.9 Type 2 diabetes mellitus without complications; I10 Essential (primary) hypertension; D64.9 Anemia, unspecified; Z95.2 Presence of prosthetic heart valve; Z95.0 Presence of cardiac pacemaker; Y93.89 Activity, other specified; Y92.010 Kitchen of single-family (private) house as the place of occurrence of the external cause; Y99.9 Unspecified external cause status; Z79.4 Long term (current) use of insulin
CPT/HCPCS: 12002; 70450; 72125; 99284

== ENCOUNTER 2023-11-04 11:48 | Inpatient (IN) | payer MEDICARE, SELFPAY ==
--- NOTE | ~2023-11-04 | CT_ITS ---
EXAMINATION: CT HEAD WITHOUT CONTRAST (STROKE PROTOCOL) CLINICAL INFORMATION: Stroke protocol. Acute disequilibrium COMPARISON: CT head from 10/31/2023 TECHNIQUE: Contiguous axial imaging was performed from the skull base to vertex without intravenous administration of contrast. This CT examination was performed using dose optimization techniques as appropriate, variously including the following: *Automated exposure control *Adjustment of mA and/or kV according to patient size (this includes techniques or standardized protocols for targeted exams where dose is matched to indication/reason for exam; i.e. extremities or head) *Use of iterative reconstruction technique DLP: 694 mGy-cm FINDINGS: There is no evidence of acute intracranial hemorrhage or territorial infarction. Redemonstrated left frontal calcified meningioma. Chronic white matter small vessel ischemic changes. Cerebral atrophy with commensurate ventricular changes. No abnormal mass effect or midline shift is seen. [place] to white matter differentiation is well preserved. No extra-axial fluid collections are identified. The ventricles are normal in size. There is no abnormal attenuation within the brain parenchyma. Soft tissue swelling and skin jignesh overlying the right posterior cranial apex without underlying bony defect noted. The osseous structures and soft tissues are normal. The mastoid air cells and visualized portions of the paranasal sinuses are well aerated. CT/CT head for stroke IMPRESSION: 1. No acute intracranial pathology. 2. Redemonstrated left frontal calcified meningioma. 3. Chronic white matter small vessel ischemic changes. 4. Cerebral atrophy with commensurate ventricular changes. 5. Soft tissue swelling and skin jignesh overlying the right posterior cranial apex without underlying bony defect noted. This critical result was discussed with Giorgi Gutierrez by telephone on 11/04/2023 12:37 PM and it was ascertained that the content and urgency of the report was understood at the time of direct communication.
[2023-11-04 11:56] VITALS: PULSE 61; RESP 16; TEMP 36.3; O2SAT 100; BMI 27.3
--- NOTE | 2023-11-04 12:05 | PC.NURSE ---
after finishing triage md mckay notified pt bp 85/19, 100/22, 101/36, c/o dizziness, loss of balance, hit head and multiple falls, speech not fully clear, answers all q's appropriately, md mckay currently at bedside evaling pt per rn request
--- NOTE | 2023-11-04 12:06 | ED_ITS ---
HPI - General Adult General Chief complaint: General Medical Stated complaint: Unsteady Time Seen by Provider: 11/04/23 12:06 History of Present Illness HPI narrative: The patient is an 78-year-old male who lives at home with his . He has a history of prostate cancer for which he sees Dr. Bennett. He also has a history of chronic anemia and receives Procrit and IV iron. The patient has had a number of emergency room visits over the last few months. He has had falls and he has also had visits for blood transfusions. His most recent visit was 4 days ago. He was seen here for a fall with a head injury. He received several jignesh for a laceration on his right scalp. He had been seen here for a fall in July (3 months ago) when he received facial sutures for a laceration following a fall as well. Other visits have been for significant anemia and blood transfusions. The patient says that he was feeling well yesterday and 1st thing this morning. He had a scheduled appointment with Dr. Bennett today. He drove himself to the hospital. He felt that he was fine when he was driving but as soon as he parked his car and started to walk to the doctor's office he started to feel a little bit unsteady. He continued to feel unsteady as he entered the doctor's office and during his appointment with the doctor. The patient admits to a sense of increased urinary output over the last 24 hours. He also reports dysuria. No flank pain. No fever, sweats, chills. No nausea or vomiting Related Data Home Medications Medication Instructions Recorded Confirmed cyanocobalamin (vitamin B-12) 500 1,000 mcg PO BEDTIME 12/29/22 11/04/23 mcg tablet ferrous sulfate 325 mg (65 mg 325 mg PO DAILY 04/29/23 11/04/23 iron) tablet,delayed release bumetanide 1 mg tablet 1 mg PO DAILY 08/25/23 11/04/23 gabapentin 400 mg capsule 400 mg PO BID 08/25/23 11/04/23 spironolactone 100 mg tablet 100 mg PO DAILY 08/25/23 11/04/23 insulin aspart U-100 100 unit/mL 8 unit subcut TID 11/04/23 11/04/23 (3 mL) subcutaneous pen (Novolog FlexPen U-100 Insulin aspart) Previous Rx's Medication Instructions Recorded blood pressure test kit-large #1 ea 11/21/21 blood-glucose meter (FreeStyle #1 ea 10/03/22 Lite Meter kit) flash glucose scanning reader #1 ea 10/03/22 (FreeStyle Amrleni 14 Day [place]) flash glucose sensor (FreeStyle #2 ea 10/03/22 Marleni 14 Day Sensor kit) aspirin 81 mg tablet,delayed 81 mg PO DAILY 30 days #30 tabs 03/11/23 release (Adult Aspirin Regimen) atorvastatin 80 mg tablet 80 mg PO BEDTIME 30 days #30 tabs 03/11/23 carvedilol 6.25 mg tablet 6.25 mg PO BID 30 days #60 tabs 03/11/23 finasteride 5 mg tablet (Proscar) 5 mg PO DAILY 90 days #90 tabs 03/11/23 furosemide 40 mg tablet 40 mg PO DAILY PRN edema 30 days 03/11/23 #30 tabs pantoprazole 40 mg tablet,delayed 40 mg PO DAILY #30 tabs 03/11/23 release tamsulosin 0.4 mg capsule 0.4 mg PO DAILY 90 days #90 caps 06/11/23 alprazolam 0.5 mg tablet 0.5 mg PO BID PRN Anxiety 30 days 06/22/23 #60 tabs folic acid 800 mcg tablet 0.8 mg PO DAILY 30 days #30 tabs 07/30/23 amoxicillin 500 mg capsule 500 mg PO BID #1 cap 08/28/23 bethanechol chloride 25 mg tablet 25 mg PO BID 90 days #180 tabs 09/15/23 dapagliflozin propanediol 10 mg 10 mg PO DAILY 30 days #30 tabs 10/07/23 tablet (Farxiga) pen needle, diabetic 32 gauge x #150 ea 10/07/23 (BD Gifty 2nd Gen Pen Needle) pen needle, diabetic 32 gauge x #50 ea 10/07/23 (BD Ultra-Fine Gifty Pen Needle) ezetimibe 10 mg tablet (Zetia) 10 mg PO DAILY #30 tabs 10/13/23 insulin degludec 100 unit/mL (3 10 unit (0.1 mL) subcut BEDTIME 10/21/23 mL) subcutaneous pen (Tresiba #15 mL FlexTouch U-100 insulin) lancets 28 gauge (FreeStyle #100 ea 10/21/23 Lancets) blood sugar diagnostic (FreeStyle #100 ea 10/28/23 Test strips) Allergies Allergy/AdvReac Type Severity Reaction Status Date / Time KARL Inhibitors Allergy Severe Angioedema Verified 11/04/23 11:56 dextran 40 [DEXTRAN 40] Allergy Intermediate tachycardia Verified 11/04/23 11:56 latex [LATEX] Allergy Mild BLISTERS Verified 11/04/23 11:56 lisinopril [From Zestril] Allergy Mild Unknown Verified 11/04/23 11:56 Iodinated Contrast Media Allergy Unknown UNKNOWN Verified 11/04/23 11:56 [CONTRAST,IV] Review of Systems 2 Review of Systems: Yes all other systems are reviewed and are negative [facility] Past Medical History Medical History 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 Streptococcal bacteremia Fracture of left humerus History of prostate cancer Acute lower gastrointestinal bleeding COVID-19 vaccine series completed Hypertension Dyslipidemia Diabetic nephropathy associated with type 2 diabetes mellitus Diabetic 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 associated with type 2 diabetes mellitus 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 Diabetes type 2, uncontrolled Varices of esophagus determined by endoscopy Esophageal varices without bleeding KOEHLER (dyspnea on exertion) Chronic fatigue Iron deficiency anemia CAD (coronary artery disease) ANUJA on CPAP Prostate cancer Spinal stenosis On beta kayy at home IBS (irritable colon syndrome) Aortic stenosis HTN (hypertension) DMII (diabetes mellitus, type 2) Polyneuropathy GERD (gastroesophageal reflux disease) Surgical History S/P infectious endocarditis H/O cataract extraction Hx of endoscopy History of colonoscopy Hx of esophagogastroduodenoscopy Hx of colonoscopy History of surgery History of transurethral resection of prostate History of surgery History of heart artery stent Family History Family History Father CVD (cardiovascular disease) Past heart attack Mother CVD (cardiovascular disease) Brain cancer Heart problem Daughter Breast cancer Sister Breast cancer Son Alive and well Family/Other Myocardial infarction Liver cancer Social History Social History Household Members: Spouse Household Members Other:: Myesha Housing: House Are you a primary lawn caretaker to a significant other at home: No Do you presently have visiting nurse or other home services: Yes Alcohol intake: never Patient Tobacco Use Status: Never used Tobacco Smoked in Last 30 Days: No e-Cigarette/Vaping Use: Never Used Second Hand Smoke Exposure: No Use of substances other than those prescribed or required for medical reasons: No Advance Directives: Yes Advance Directives on File: Yes Advance Directives Date on File: 08/31/23 service: No Current occupational status: retired Cognitive needs: No Hearing needs: No Vision needs: Yes Physical Exam ED Vital Signs: Vital Signs - 24 hr 11/04/23 11:56 11/04/23 16:48 11/04/23 17:57 Temperature 97.3 F 97.4 F 96.7 F L Pulse Rate 61 68 Respiratory Rate 16 18 Blood Pressure 108/39 L Pulse Oximetry 100 98 Oxygen Delivery Method Room Air Room Air BMI result Body Mass Index 27.3 Const Other: The patient is a frail looking 78-year-old who is awake and alert. He looks somewhat pale. He did not seem in acute distress. He looks chronically ill HENMN Other: The patient has a stapled laceration on the right temporal occipital scalp that shows no signs of infection or other complication. His face is symmetrical. Mucous membranes unremarkable. Eyes Other: Pupils are round equal, extraocular movements intact, lateral gaze is intact bilaterally, visual kramer are intact Neck Other: Moving his neck easily, no JVD Resp Effort & Inspection: normal respiratory effort Auscultation: clear to auscultation bilaterally Cardio Rate: regular rate Rhythm: regular rhythm Heart sounds: S1 normal heart sound present and S2 normal heart sound present GI Other: Abdomen is soft and nontender General: Yes no CVA tenderness Back/Spine/Pelvis Back: no CVA tenderness Skin Other: Skin is pale and dry Neuro Other: The patient is awake and alert. He is oriented and appropriate. He recognized me immediately from ER visit 3 months ago. Lateral gaze is intact. Visual kramer are intact. Face is symmetrical. Strength is symmetrical in his extremities. Finger-nose is unremarkable unremarkable. He was able to stand and he was able to walk with a cane but he did not seem to walk very safely and when he tried to sit himself into a chair he seemed particularly unsafe. He did not have any broad-based gait or obvious ataxia. He did not have any obvious focal neurological deficit other than difficulty walking. Extrem Other: Mild bilateral lower extremity edema Medications Administered Discontinued Medications Generic Name Dose Route Start Last Admin Trade Name Fortunato PRN Reason Stop Dose Admin Sodium Chloride 1,000 mls @ 999 mls/hr 11/04/23 14:00 11/04/23 16:17 Ns IV 11/04/23 15:00 Infused .Q1H1M PANFILO Infusion Ceftriaxone Sodium 1 gm/ 50 mls @ 100 mls/hr 11/04/23 13:52 11/04/23 15:31 Sodium Chloride IV 11/04/23 14:21 Infused ONCE ONE Infusion Medical Decision Making Medical Decision Making [facility] Narrative: The patient is an 78-year-old man with a history of multiple medical problems who had an appointment with Oncology today. He was apparently well enough this morning to drive himself to the hospital for his oncology appointment but after parking his car he felt weak and unsteady with walking. He went to the oncology office and was referred to the emergency room. Given that his difficulty was quite acute he was sent immediately for a head CT. This was negative. He was here 4 days ago for head injury with a scalp laceration requiring multiple jignesh to the scalp wound. He does not have other neurological findings highly suggestive of a stroke syndrome. His medical workup revealed pyuria and he admits to urinary symptoms including urinary frequency and dysuria over the last 24 hours. My overall impression was that the patient's acute weakness is probably the result of an acute UTI rather than an acute stroke or other neurological process. He was given a L of normal saline and 1 g of IV ceftriaxone. He was observed. He was hungry and ate a meal. I then attempted ambulation frail to consider discharge home. This is especially the case since he lives with his who has dementia. The patient acknowledged that he was not walking that well and was willing to stay in the hospital. He also acknowledged dysuria. The patient will be kept in the emergency room overnight for evaluation by physical therapy. Case management has also been involved. My hope is that he will be feeling better tomorrow after antibiotics have had a chance to take effect. The patient is anemic. This is somewhat chronic. His hemoglobin today is 7.8. He says that he normally gets transfused when he is below 7. The patient will therefore be considered under physician observation or case management and physical therapy evaluation. I will order cefuroxime for what seems to be a UTI. 18:10 I re-evaluated the patient. His blood pressure was somewhat low at 101/39. The patient says that this is not his normal blood pressure but interestingly he says he has been prescribed midodrine in the past for low blood pressures. I asked for a rectal temperature at this point. His rectal temperature was normal. Given his low blood pressures I have asked for a hospitalist consult. Lab Data 11/04/23 12:36 11/04/23 12:36 Labs: Lab Results 11/04/23 11/04/23 11/04/23 Range/Units 12:36 12:41 14:17 WBC 4.8 (4.8-10.8) X10*3/uL RBC 2.74 L (4.60-5.80) X10*6/uL Hgb 7.8 L (14.0-18.0) g/dl Hct 24.9 L (42.0-52.0) % MCV 90.9 (80.0-98.0) fL MCH 28.5 (27.0-33.0) pg MCHC 31.3 (31.0-36.0) g/dl RDW 15.9 (11.0-16.0) % Plt Count 90 L (160-400) X10*3/uL MPV 11.9 (9.4-12.4) fL Immature Gran % (Auto) 0.4 (0.0-0.4) % Neut % (Auto) 78.7 H (45-73) % Lymph % (Auto) 8.8 L (20-40) % Reynolds % (Auto) 11.1 H (2-11) % Eos % (Auto) 0.4 (0-4) % Baso % (Auto) 0.6 (0-2) % Lymph # (Auto) 0.4 L (1.2-4.9) X10*3/uL Reynolds # (Auto) 0.5 (0.1-1.2) X10*3/uL Eos # (Auto) 0.0 (0.0-0.4) X10*3/uL Baso # (Auto) 0.0 (0.0-0.2) X10*3/uL Abs Immat Gran (auto) 0.02 (0.00-0.03) X10*3/uL Absolute Neuts (auto) 3.7 (2.0-8.3) x10*3/uL Absolute Nucleated RBC 0.000 (0.0-0.012) X10*3/uL Nucleated RBC % (auto) 0.0 (0.0-0.2) /100WBC PT 13.6 H (11.1-13.3) SEC Whole Blood PT 14.5 H (11.1-13.5) sec INR 1.1 (0.9-1.1) Whole Blood INR 1.2 H (0.9-1.1) APTT 28.7 (26.0-36.8) SEC Sodium 136 (135-145) mmol/L Potassium 5.5 H (3.3-5.1) mmol/L Chloride 106 (96-108) mmol/L Carbon Dioxide 22 (22-29) mmol/L Anion Gap 14 (12-20) BUN 67 H (9-16) mg/dL Creatinine 2.20 H (0.5-1.4) mg/dL Estim Creat Clear Calc 26.7 Estimated GFR 29 POC Glucose 158 H (60-115) mg/dL Random Glucose 208 H (60-115) mg/dL Calcium 8.3 L (8.4-10.2) mg/dL Total Creatine Kinase 38 (38-174) U/L Troponin I High Sens 15.2 D (<3.5-35.0) ng/L C-Reactive Protein 0.33 (< or = 0.50) mg/dL Discharge Plan Discharge Clinical Impression: Difficulty walking, Urinary tract infection Patient Disposition: Still a Patient Prescriptions: No Action (DME) FreeStyle Marleni 14 Day [place] Misc See Rx Instructions .Route Qty: 1 0RF Rx Instructions: As directed (DME) FreeStyle Marleni 14 Day Sensor Kit See Rx Instructions .Route Qty: 2 2RF Rx Instructions: As directed (DME) blood-glucose meter [FreeStyle Lite Meter] Kit See Rx Instructions .Route Qty: 1 0RF Rx Instructions: As directed tamsulosin 0.4 mg capsule 0.4 mg PO DAILY 90 Days Qty: 90 1RF alprazolam 0.5 mg tablet 0.5 mg PO BID PRN (Reason: Anxiety) 30 Days Qty: 60 2RF folic acid 800 mcg tablet 0.8 mg PO DAILY 30 Days Qty: 30 3RF bethanechol chloride 25 mg tablet 25 mg PO BID 90 Days Qty: 180 1RF (DME) pen needle, diabetic [BD Ultra-Fine Gifty Pen Needle] 32 gauge x 5/32 needle See Rx Instructions .ROUTE .MEDSUPPLY Qty: 50 3RF Rx Instructions: As directed (DME) pen needle, diabetic [BD Gifty 2nd Gen Pen Needle] 32 gauge x 5/32 needle See Rx Instructions .MEDSUPPLY Qty: 150 5RF Rx Instructions: 4 times a day Farxiga 10 mg tablet 10 mg PO DAILY 30 Days Qty: 30 3RF ezetimibe [Zetia] 10 mg tablet 10 mg PO DAILY Qty: 30 3RF (DME) FreeStyle Test Strip See Rx Instructions .Route Qty: 100 3RF Rx Instructions: three times per day cyanocobalamin (vitamin B-12) 500 mcg Tablet 1,000 mcg PO BEDTIME bumetanide 1 mg tablet 1 mg PO DAILY spironolactone 100 mg tablet 100 mg PO DAILY Protocol: Hold for SBP< HOLD for SBP < : 120 gabapentin 400 mg capsule 400 mg PO BID amoxicillin 500 mg Capsule 500 mg PO BID Qty: 1 0RF insulin aspart U-100 [Novolog FlexPen U-100 Insulin] 100 unit/mL (3 mL) insulin pen 8 unit subcut TID Rx Instructions: see directions per sliding scale subcutaneously 3 times a day; Blood sugar 70-130- take 0 units Blood sugar 131-180- take 4 units Blood sugar 181-240- take 8 units Blood sugar 241-to 300- take 10 units Blood sugar 301-to 350- take 12 units Blood sugar 351-400- take 16 units Blood sugar over 400 please call PCP (DME) lancets [FreeStyle Lancets] 28 gauge misc See Rx Instructions .Route Qty: 100 6RF Rx Instructions: As directed three times per day insulin degludec [Tresiba FlexTouch U-100] 100 unit/mL (3 mL) insulin pen 10 unit subcut BEDTIME Qty: 15 0RF (DME) blood pressure test kit-large Kit See Rx Instructions .Route Qty: 1 0RF Rx Instructions: As directed finasteride [Proscar] 5 mg tablet 5 mg PO DAILY 90 Days Qty: 90 1RF furosemide 40 mg tablet 40 mg PO DAILY PRN (Reason: edema) 30 Days Qty: 30 3RF carvedilol 6.25 mg tablet 6.25 mg PO BID 30 Days Qty: 60 3RF Rx Instructions: must administer with a meal/food pantoprazole 40 mg tablet,delayed release (DR/EC) 40 mg PO DAILY Qty: 30 3RF atorvastatin 80 mg tablet 80 mg PO BEDTIME 30 Days Qty: 30 3RF aspirin [Adult Aspirin Regimen] 81 mg tablet,delayed release (DR/EC) 81 mg PO DAILY 30 Days Qty: 30 3RF Hold Instructions: hold aspirin until 09/01 ferrous sulfate 325 mg (65 mg iron) tablet,delayed release (DR/EC) 325 mg PO DAILY Referrals: Xander Marin [Outside]
--- NOTE | 2023-11-04 12:18 | ECG_ITS ---
Test Reason : STROKE Blood Pressure : / mmHG Vent. Rate : 063 BPM Atrial Rate : 063 BPM P-R Int : 212 ms QRS Dur : 104 ms QT Int : 456 ms P-R-T Axes : 052 -47 115 degrees QTc Int : 466 ms AV dual-paced rhythm with prolonged AV conduction with occasional ventricular-paced complexes Abnormal ECG When compared with ECG of 25-AUG-2023 15:15, Vent. rate has decreased BY 4 BPM Referred By: Giorgi Gutierrez Electronically Signed By:ZAYDA SANDY MD
[2023-11-04 12:42] LABS: MANUAL DIFF FLAG NO
[2023-11-04 12:45] LABS: Prothrombin Time Whole Bld POC 14.5 sec (11.1-13.5); ~PT, ~INR - Anti Coag Clinic 1.2 (0.9-1.1)
[2023-11-04 12:45] LABS: Basophils Percent Auto 0.6 % (0-2); Eosinophils Percent Auto 0.4 % (0-4); Hematocrit 24.9 % (42.0-52.0); Hemoglobin 7.8 g/dl (14.0-18.0); Imm Gran Abs Auto 0.02 X10*3/uL (0.00-0.03); Imm Gran Pct Auto 0.4 % (0.0-0.4); Lymphocytes Absolute Auto 0.4 X10*3/uL (1.2-4.9); Lymphocytes Percent Auto 8.8 % (20-40); Mean Corpuscular HGB Conc 31.3 g/dl (31.0-36.0); Mean Corpuscular Hemoglobin 28.5 pg (27.0-33.0); Mean Corpuscular Volume 90.9 fL (80.0-98.0); Mean Platelet Volume 11.9 fL (9.4-12.4); Monocytes Absolute Auto 0.5 X10*3/uL (0.1-1.2); Monocytes Percent Auto 11.1 % (2-11); Neutrophils Absolute Auto 3.7 x10*3/uL (2.0-8.3); Neutrophils Percent Auto 78.7 % (45-73); Red Blood Count 2.74 X10*6/uL (4.60-5.80); Red Cell Distribution Width 15.9 % (11.0-16.0); White Blood Count 4.8 X10*3/uL (4.8-10.8)
[2023-11-04 12:48] LABS: Platelet Count 90 X10*3/uL (160-400)
[2023-11-04 12:49] LABS: INTERNATIONAL NORM RATIO 1.1 (0.9-1.1); Prothrombin Time 13.6 SEC (11.1-13.3)
[2023-11-04 12:51] LABS: Partial Thromboplastin Time 28.7 SEC (26.0-36.8)
[2023-11-04 12:57] LABS: Anion Gap 14 (12-20); Blood Urea Nitrogen 67 mg/dL (9-16); Calcium 8.3 mg/dL (8.4-10.2); Carbon Dioxide 22 mmol/L (22-29); Chloride 106 mmol/L (96-108); Creatinine Clr Calc Pharmacy 26.7; Estimated Glomerular Filt Rate 29; Glucose Random 208 mg/dL (60-115); Potassium 5.5 mmol/L (3.3-5.1); Sodium 136 mmol/L (135-145)
[2023-11-04 12:59] LABS: Stroke Lab Use COMPLETE
[2023-11-04 13:05] LABS: Troponin-I High Sensitivity 15.2 ng/L (<3.5-35.0)
--- NOTE | 2023-11-04 13:21 | PC.NURSE ---
pt alert and oriented, pleasant, calm, and cooperative. pt has 20G to the left. is resting quietly on stretcher in no apparent distress. rr even/unlabored. plan of care ongoing.
[2023-11-04 14:04] LABS: C Reactive Protein 0.33 mg/dL (< or = 0.50)
[2023-11-04] MEDS: 0.9 % Sodium Chloride 1,000 ML 999 ML IV (14:20)
[2023-11-04 14:23] LABS: Glucose, Whole Blood 158 mg/dL (60-115)
[2023-11-04] MEDS: cefTRIAXone sodium 1 GM in 0.9 % Sodium Chloride 50 ML IV (14:23)
--- NOTE | 2023-11-04 14:36 | PC.NURSE ---
poc taken, pt medicated per nov. pt provided with extra meal tray per MD Giorgi. pt had 3 episodes of missing urinal. given new gown, benjamin care, and augustina pad. plan of care onoging.
--- NOTE | 2023-11-04 15:57 | MHC.CM.ED ---
Addendum entered by Sunshine Flores 11/04/23 15:59: Patient's sister in law will watch patient's , Myesha overnight. Original Note: Received case management consult from Dr Gutierrez. Patient came to the Er from oncology due to unsteady gait. Patient has a long standing history of anemia that requires blood transfusions. Patient almost fell while in the oncology department and was sent to the ER. spoke with Carmen, payroll master. Patient takes care of his with dementia. Oncology is concerned about patient's safety in regards to ambulating and driving. Carmen spoke with patient's son, Blaise. Blaise felt his father is stubborn and won't listen to him. Xander KULKARNI has been arrannged for care home to help with medication management. Dr Gutierrez attempted to ambulate patient in the ER. His gait was unsteady and he almost fell. Patient agreeable to staying in ER overnight for physical therapy eval. Continue to monitor for d/c needs.
--- NOTE | 2023-11-04 16:22 | PC.NURSE ---
patient missed urinal found to be wet with urine. patient cleaned up, new pads, linens dry, new gown patient now resting quietly.
[2023-11-04 16:48] VITALS: BP 108/39; PULSE 68; RESP 18; TEMP 36.3; O2SAT 98
--- NOTE | 2023-11-04 17:39 | PHA.MEDREC ---
Pharmacy Consult ? Medication Reconciliation Pharmacy has completed the medication reconciliation. Comfirmed medications from claim history and patient. Patient was unsure on a few medications and i left them unconfirmed. Furosemide 40mg, Pantoprazole 40mg, ans Carvedilol 6.25.
--- NOTE | 2023-11-04 17:39 | PM.HEMONCCN ---
Subjective - Subjective Chief complaint: Consult for: Significant anemia. Status post fall. Patient: known to practice within the last 3 years Consult date: 11/04/23 Primary Care Provider: Roberto Carlos Cisneros PA-C Family Provider: [facility] Medical Summary: DIAGNOSIS: 1. Anemia. 2. Status post fall. HPI - Consult Narrative Reason for consult: Consult for: 1. Significant anemia. Narrative: Kwaku Lopes is a 78 year old gentleman, who presented after a fall. He has a history of chronic anemia and receives Procrit and IV iron. CBC from today: WBC 4.8, HGB 7.8, HCT 25, PLT 90. He was subsequently referred to the ED. He has had a number of emergency room visits over the last few months. He has had falls. He has also had visits for blood transfusions. His most recent ER visit was 4 days ago. He was seen here for a fall with a head injury. He received several jignesh for a laceration on his right scalp. He had been seen here for a fall in July (3 months ago) when he received facial sutures for a laceration following a fall as well. Other visits have been for significant anemia and blood transfusions. The patient says that he was feeling well yesterday and 1st thing this morning. He had a scheduled appointment in oncology today. He drove himself to the hospital. He felt that he was fine but as soon as he parked his car and started to walk to the doctor's office he started to feel a little bit unsteady. He continued to feel unsteady as he entered the doctor's office and during his appointment with the doctor. He has been feeling rather fatigued. No fever, sweats, chills. No headache, he did feel dizzy. No abdominal pain nausea or vomiting. Bowels are working without any gross blood in it. He has had a sense of increased urinary output over the last 24 hours. He also reports dysuria. No flank pain. PAST MEDICAL HISTORY: Recent treatment 2021, for endocarditis as well as hematoma secondary to left humerus fracture which caused acute worsening of his anemia. He has received multiple units of blood transfusion. He has a history of prostate cancer for which he sees Dr. Nielsen. The patient was admitted in May 2015 with symptoms of painful hematuria. Review of Systems - Constitutional Reports system reviewed and no additional complaints, except as documented, Reports anorexia, Reports fatigue, Reports lack of energy, Reports malaise, Reports poor appetite, Reports weight loss, Denies fever(s) - Eyes Reports system reviewed and no additional complaints, except as documented - ENT Reports system reviewed and no additional complaints, except as documented - Cardiovascular Reports system reviewed and no additional complaints, except as documented - Respiratory Reports no additional respiratory complaints - Gastrointestinal Reports system reviewed and no additional complaints, except as documented - Genitourinary Genitourinary: Reports no additional male genitourinary complaints - Musculoskeletal Reports system reviewed and no additional complaints, except as documented - Integumentary/Breasts Skin/Breast: Reports no additional skin complaints - Neurologic Reports system reviewed and no additional complaints, except as documented - Psychiatric Reports system reviewed and no additional complaints, except as documented - Endocrine Reports no additional endocrine complaints - Hematologic/Lymphatic Reports system reviewed and no additional complaints, except as documented - Allergic/Immunologic Reports system reviewed and no additional complaints, except as documented Oncology Screenings - ECOG Performance Status ECOG Performance Status: 2 [facility] Medical History: Medical History (Last Reviewed 11/06/23 @ 08:25 by Sarah Vela, PT) Abscess in epidural space of cervical spine Acute lower gastrointestinal bleeding Anemia Aortic stenosis CAD (coronary artery disease) Chronic fatigue COVID-19 vaccine series completed Diabetes type 2, uncontrolled Diabetic nephropathy associated with type 2 diabetes mellitus Diabetic 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 associated with type 2 diabetes mellitus Difficulty walking DMII (diabetes mellitus, type 2) KOEHLER (dyspnea on exertion) Dyslipidemia Esophageal varices without bleeding Fracture of left humerus GERD (gastroesophageal reflux disease) History of prostate cancer HTN (hypertension) Hypertension IBS (irritable colon syndrome) Infective endocarditis Iron deficiency anemia 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 On beta kayy at home ANUJA on CPAP Osteomyelitis of cervical spine Polyneuropathy Prostate cancer Spinal stenosis Streptococcal bacteremia Symptomatic anemia Varices of esophagus determined by endoscopy Functional capacity: uses cane/walker Patient : No Family History: Family History (Last Reviewed 10/31/23 @ 12:09 by Huang Muller MD) Father CVD (cardiovascular disease) Past heart attack Mother CVD (cardiovascular disease) Brain cancer Heart problem Daughter Breast cancer Sister Breast cancer Son Alive and well Family/Other Myocardial infarction Liver cancer Surgical History: Surgical History (Last Reviewed 11/06/23 @ 08:25 by Sarah Vela, PT) H/O cataract extraction History of colonoscopy History of heart artery stent History of surgery History of surgery History of transurethral resection of prostate Hx of colonoscopy Hx of endoscopy Hx of esophagogastroduodenoscopy S/P infectious endocarditis Social History: Social History (Last Reviewed 10/31/23 @ 12:09 by Huang Muller MD) Living Situation History: Household Members: Spouse Household Members Other:: Myesha Housing: House Are you a primary caregivers homecare to a significant other at home: No Do you presently have visiting nurse or other home services: No Tobacco History: Patient Tobacco Use Status: Never used Tobacco e-Cigarette/Vaping Use: Never Used Second Hand Smoke Exposure: No Advance Directives: Advance Directives Date on File: 08/31/23 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 Current occupational status: retired Home Medications and Allergies Home Medications Medication Instructions Recorded Confirmed Type cyanocobalamin (vitamin B-12) 500 1,000 mcg PO BEDTIME 12/29/22 11/04/23 History mcg tablet ferrous sulfate 325 mg (65 mg 325 mg PO DAILY 04/29/23 11/04/23 History iron) tablet,delayed release bumetanide 1 mg tablet 1 mg PO DAILY 08/25/23 11/04/23 History gabapentin 400 mg capsule 400 mg PO BID 08/25/23 11/04/23 History spironolactone 100 mg tablet 100 mg PO DAILY 08/25/23 11/04/23 History insulin aspart U-100 100 unit/mL 8 unit subcut TID 11/04/23 11/04/23 History (3 mL) subcutaneous pen (Novolog FlexPen U-100 Insulin aspart) Allergies Allergy/AdvReac Type Severity Reaction Status Date / Time KARL Inhibitors Allergy Severe Angioedema Verified 11/04/23 11:56 dextran 40 [DEXTRAN 40] Allergy Intermediate tachycardia Verified 11/04/23 11:56 latex [LATEX] Allergy Mild BLISTERS Verified 11/04/23 11:56 lisinopril [From Zestril] Allergy Mild Unknown Verified 11/04/23 11:56 Iodinated Contrast Media Allergy Unknown UNKNOWN Verified 11/04/23 11:56 [CONTRAST,IV] Physical Exam Vital signs: Vital Signs Temp 97.4 F 11/04/23 16:48 Pulse 68 11/04/23 16:48 Resp 18 11/04/23 16:48 BP 108/39 L 11/04/23 16:48 Pulse Ox 98 11/04/23 16:48 O2 Del Method Room Air 11/04/23 16:48 Intake & Output 11/03/23 11/04/23 11/04/23 18:59 06:59 18:59 Intake Total 1050 / 1050 Balance 1050 / 1050 Intake: Intake, IV Amount 1050 / 1050 0.9 % Sodium Chloride 1,000 ml 1000 / 1000 @ 999 mls/hr IV .Q1H1M PANFILO Rx#: [id number] cefTRIAXone sodium 1 gm In 0.9 50 / 50 % Sodium Chloride 50 ml @ 100 mls/hr IV ONCE ONE Rx#: [id number] Other: Weight 83.9 kg Weight 83.9 kg - Constitutional Present: mild distress - Routine HEENT Exam Head: Present: normal inspection, normocephalic Eye: Present: normal appearance ENT: Present: mucous membranes moist - Routine Neck Exam Present: supple - Routine Respiratory Exam Present: CTAB - Routine Cardiovascular Exam Cardiovascular: Present: RRR, S1, S2 - Routine Abdominal Exam Present: soft, nontender - Routine Extremities Exam Present: nontender - Routine Neurological Exam Present: alert, altered mental status. Absent: oriented X3 Hem/Onc Consult Result - Labs CBC & Chem 7: 11/07/23 10:42 11/06/23 09:34 Labs: Short CBC 11/04/23 Range/Units 12:36 WBC 4.8 (4.8-10.8) X10*3/uL Hgb 7.8 L (14.0-18.0) g/dl Hct 24.9 L (42.0-52.0) % Plt Count 90 L (160-400) X10*3/uL BMP 11/04/23 12:36 Sodium 136 Potassium 5.5 H Chloride 106 Carbon Dioxide 22 BUN 67 H Creatinine 2.20 H Calcium 8.3 L Cardiac Enzymes 11/04/23 Range/Units 12:36 Total Creatine Kinase 38 (38-174) U/L Assessment and Plan Patient Active problem list reviewed?: Yes (1) Anemia Status: Inactive Assessment and plan: Mr. Lopes is a 78-year-old gentleman. Who has an extensive medical history, with the frequent hospitalizations in the last 2 years. He has a long-standing history of type 2 diabetes mellitus, coronary artery disease. In August 2012, he was diagnosed with prostate cancer, underwent laser surgery, followed by radiation therapy, which he completed in April 2014. He is currently on Trelstar (LHRH agonist therapy) every 6 months under the care of Dr. Dudley. He was admitted in June for rectal bleeding and anemia. This was diagnosed as radiation proctitis. He has a history of blood transfusion in 2012 when he was admitted for Staphylococcus aureus sepsis and anemia. He was told of leukopenia for many years and reviewing [facility], his white count has ranged from 3 to 4 thousand dating back to 2003 with normal counts in 2005. Since 2006 or 2007, it has declined and more recently since 2012, it has stayed under 5000 consistently. He has developed thrombocytopenia since 2012. Prior to that, platelet counts have been normal. His hemoglobin has always been low; back in 2013 it was in the 13 g/dL range but since 2005 it has gone up and down ranging between been 10 to 11 g/dL and in 2013 it has been below 10 g/dL. He does have a history of excess alcohol consumption for many years and he quit in 2013. Ultrasound of the abdomen in March 2014 revealed enlarged liver, showing diffuse liver disease and splenomegaly with spleen size of 19 cm. Hematology consultation on August 23, 2014 revealed anemia with a hemoglobin of 9.4 g/dL, white count of 2.3, platelets of 103,000. Iron studies showed a ferritin of 8 with iron saturation of 20%. LDH normal. LFTs normal. Vitamin B12 and folate levels normal. Beta-2 microglobulin slightly elevated at 3.05. Serum protein electrophoresis revealed monoclonal protein, which was too small to quantitate. Immunoglobulin levels were normal. Rheumatoid factor less than 15 in the past. Repeat ultrasound of abdomen performed September 11, 2014 showed: Hepatosplenomegaly similar to previous exam. Dilated portal vein suggestive of portal hypertension. Thickened, edematous gallbladder similar to March 2014 exam. He developed significant anemia with a hemoglobin dropping to 7.7 g/dL for which he received 2 to 3 units of blood transfusion. He had an allergic reaction to iron dextran. Developed upper GI bleeding related to esophageal varices. He has undergone banding. He has been on IV Ferrlecit intermittently. He also received blood transfusion. 2. Pancytopenia, leukopenia and thrombocytopenia, which has been chronic and stable. He has evidence of hepatosplenomegaly, portal hypertension, which is probably contributing to his cytopenias. MRI abdomen in December 2019 showed chronic cirrhosis, portal venous hypertension and splenomegaly. No evidence of HCC or other liver lesions. 3. Vitamin B12 deficiency, pernicious anemia. He is positive for intrinsic factor antibodies. He is on oral B12 supplementation and adequate blood levels. 4. Renal insufficiency. This has worsened. PLAN: He has received Venofer infusions. His ferritin was below 50, he was restarted on Venofer infusions. He was recently started on Procrit as his anemia could be related to chronic kidney disease as well. He received a dose today. He presented after a couple of falls today. He was referred to the ED, for admission and further workup. Thank you, CC: Van Cisneros. - Time Spent With Patient Time Spent with Patient (in minutes): 30
[2023-11-04 17:57] VITALS: TEMP 35.9
[2023-11-04 18:29] LABS: Glucose, Whole Blood 221 mg/dL (60-115)
--- NOTE | 2023-11-04 18:50 | PC.NURSE ---
called kitchen for pt tray. report given to MATI Xavier.
[2023-11-04] MEDS: Sodium Zirconium Cyclosilicate 10 GM POWD.PACK PO (19:05)
[2023-11-04 19:16] VITALS: BP 109/46; PULSE 62; RESP 16; TEMP 36.3; O2SAT 99
--- NOTE | 2023-11-04 19:30 | PC.NURSE ---
Assumed care of pt. pt lying on stretcher, no acute distress. of note, pt presenting with bruising throughout BLE, swelling to L knee, sacral area, gluteal area bilat, in various stages of healing from multiple previous falls.
--- NOTE | 2023-11-04 20:09 | MHC.EDTECH ---
Dinner didn't come for patient. Gave him Tuna sandwich and Diet Xiao nader. Pt is all set at this time.
--- NOTE | 2023-11-04 20:10 | MHC.EDTECH ---
@1915 Per Rn This tech applied [place] catheter to patient.
--- NOTE | 2023-11-04 20:13 | PC.NURSE ---
Addendum entered by Duc Murphy RN 11/05/23 06:45: of note, pt presenting with bruising throughout BLE, swelling to L knee, sacral area, gluteal area bilat, in various stages of healing from multiple previous falls. Original Note: Assumed care of pt. Pt lyin los stretcher, condom catheter in place, pt with no complaints at this time, except for pending evening meal (dietary contacted by previous shift). VSS, no acute distress at this time.
[2023-11-04] MEDS: carvediloL 6.25 MG TABLET PO (20:50)
[2023-11-04] MEDS: Gabapentin 400 MG CAPSULE PO (20:50)
[2023-11-04] MEDS: Bethanechol Chloride 25 MG TABLET PO (20:50)
[2023-11-04 21:13] LABS: Appearance Urine Turbid; Color Urine Yellow; Glucose Urine UA >=1000 mg/dL (Negative); Leukocyte Esterase Urine Large (3+) (Negative); Nitrite Urine Negative (Negative); Specific Gravity - Urine 1.015 (1.005-1.025); UMIC TRIGGER UACC YES; Urine Blood Small (1+) (Negative); Urine Ketones Negative (Negative); Urine Protein Negative (Neg-Trace)
[2023-11-04 22:21] LABS: Bacteria Urine None Seen (None Seen); Hyaline Casts Urine 0-2 /LPF (0-2); Squamous Epithelial Cell Urine 0-2 /HPF (0-2); UACC Culture Trigger YES; WBC Urine >50 /HPF (0-5)
[2023-11-04 23:05] VITALS: BP 101/37; PULSE 66; RESP 16; TEMP 36.4; O2SAT 99
[2023-11-05] VITALS (17 sets, daily range): BP systolic 97–114; BP diastolic 32–67; PULSE 60–72; RESP 10–20; TEMP 36.3–36.6; O2SAT 96–99
[2023-11-05 06:09] LABS: MANUAL DIFF FLAG NO
--- NOTE | 2023-11-05 06:12 | PM.IMHP ---
History of Present Illness Date of Service: 11/05/23 Attending physician on admission: Huong Salgado Chief Complaint: Event of dizziness Kwaku Lopes is 78 years old man with past medical history significant for type 2 diabetes mellitus on insulin, hepatic cirrhosis complicated with esophageal varices and ascites, obstructive sleep apnea, prostate CA (status post laser therapy and radiation therapy), chronic pancytopenia, pernicious anemia/vitamin B12 deficiency therapy (receives Venofer infusions), obstructive sleep apnea on CPAP, coronary artery disease, pacemaker implantation, hypertension, s/p TAVR and hyperlipidemia was brought to the emergency department from the [facility] hematology for concern by staff for altered mental status, unsteadiness and frequent falls. On Thursday, he sustained a head trauma and scalp wound after a fall requiring eli. The patient goes to the Hematology center to get transfusions regularly. At this time he denied any headache, shortness on breath, chest pain, abdominal pain, nausea, vomiting or diarrhea. He does have abdominal distention secondary to ascites. In the ED he has been found to have stable vital signs. Blood workup remarkable for anemia which is at baseline. Hyperkalemia of 5.5 and elevated creatinine which is at baseline. Troponin and CRP are negative. Urinalysis consistent with urinary tract infection. Head CT scan showed no acute changes. Review of Systems Review of Systems: All 12 systems were reviewed and normal except as noted in HPI. 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 Diabetes type 2, uncontrolled Varices of esophagus determined by endoscopy Esophageal varices without bleeding KOEHLER (dyspnea on exertion) Chronic fatigue Iron deficiency anemia CAD (coronary artery disease) ANUJA on CPAP Prostate cancer Spinal stenosis On beta kayy at home IBS (irritable colon syndrome) Aortic stenosis HTN (hypertension) DMII (diabetes mellitus, type 2) Polyneuropathy GERD (gastroesophageal reflux disease) Functional capacity: uses cane/walker Family History Father CVD (cardiovascular disease) Past heart attack Mother CVD (cardiovascular disease) Brain cancer Heart problem Daughter Breast cancer Sister Breast cancer Son Alive and well Family/Other Myocardial infarction Liver cancer Surgical History S/P infectious endocarditis H/O cataract extraction Hx of endoscopy History of colonoscopy Hx of esophagogastroduodenoscopy Hx of colonoscopy History of surgery History of transurethral resection of prostate History of surgery History of heart artery stent Social History Household Members: Spouse Household Members Other:: Myesha Housing: House Are you a primary healthcare recruiter to a significant other at home: No Do you presently have visiting nurse or other home services: Yes Alcohol intake: never Patient Tobacco Use Status: Never used Tobacco Smoked in Last 30 Days: No e-Cigarette/Vaping Use: Never Used Second Hand Smoke Exposure: No Use of substances other than those prescribed or required for medical reasons: No Advance Directives: Yes Advance Directives on File: Yes Advance Directives Date on File: 08/31/23 service: No Current occupational status: retired Cognitive needs: No Hearing needs: No Vision needs: Yes Meds Allergies Allergy/AdvReac Type Severity Reaction Status Date / Time KARL Inhibitors Allergy Severe Angioedema Verified 11/04/23 11:56 dextran 40 [DEXTRAN 40] Allergy Intermediate tachycardia Verified 11/04/23 11:56 latex [LATEX] Allergy Mild BLISTERS Verified 11/04/23 11:56 lisinopril [From Zestril] Allergy Mild Unknown Verified 11/04/23 11:56 Iodinated Contrast Media Allergy Unknown UNKNOWN Verified 11/04/23 11:56 [CONTRAST,IV] Active Medications: Current Medications Acetaminophen (Acetaminophen 325 Mg Tablet) 975 mg PO Q6H PRN PRN Reason: Pain, Mild (Pain Scale 1-3) Alprazolam (Alprazolam 0.5 Mg Tablet) 0.5 mg PO BID PRN PRN Reason: Anxiety Aspirin (Aspirin Enteric Coated 81 Mg Tablet.Dr) 81 mg PO DAILY PANFILO Atorvastatin Calcium (Atorvastatin Calcium 80 Mg Tablet) 80 mg PO BEDTIME PANFILO Bethanechol Chloride (Bethanechol Chloride 25 Mg Tablet) 25 mg PO BID PANIFLO Bumetanide (Bumetanide 1 Mg Tablet) 1 mg PO DAILY PANFILO; Protocol Carvedilol (Carvedilol 6.25 Mg Tablet) 6.25 mg PO BID [facility]; Protocol Last Admin: 11/04/23 20:50 Dose: 6.25 mg Cyanocobalamin (Cyanocobalamin (Vitamin B-12) 1,000 Mcg Tablet) 1,000 mcg PO BEDTIME [facility] Last Admin: 11/05/23 02:19 Dose: Not Given Dextrose (Dextrose 50 % 25 Gm/50 Ml Syringe) 25 gm IVPUSH Q15M PRN; Protocol PRN Reason: per Hypoglycemia Standing Ord. Ezetimibe (Ezetimibe 10 Mg Tablet) 10 mg PO DAILY [facility] Ferrous Sulfate (Ferrous Sulfate 324 Mg Tablet.) 324 mg PO DAILY [facility] Finasteride (Finasteride 5 Mg Tablet) 5 mg PO DAILY [facility] Folic Acid (Folic Acid 1 Mg Tablet) 1 mg PO DAILY [facility] Gabapentin (Gabapentin 400 Mg Capsule) 400 mg PO BID [facility] Glucose (Glucose Gel 15 Gm Gel..Gram.) 15 gm PO Q15M PRN; Protocol PRN Reason: per Hypoglycemia Standing Ord. Heparin Sodium (Porcine) (Heparin Sodium,Porcine 5,000 Unit/Ml Vial) 5,000 unit SUBCUT Q12H [facility] Ceftriaxone Sodium 1 gm/ (Sodium Chloride) 50 mls @ 100 mls/hr IV Q24H [facility] Insulin Glargine (Insulin Glargine,Hum.Rec.Anlog 100 Unit/Ml 10 Ml Vial) 7 unit SUBCUT BEDTIME [facility] Insulin Human Lispro (Insulin Lispro 100 Unit/Ml 3 Ml Vial) 8 unit SUBCUT TIDAC [facility] Insulin Human Lispro (Insulin Lispro 100 Unit/Ml 3 Ml Vial) 0 unit SUBCUT QIDACHS [facility]; Protocol Omeprazole (Omeprazole 40 Mg Capsule.) 40 mg PO DAILY [facility] Sodium Chloride (0.9 % Sodium Chloride Flush 3 Ml Syringe) 3 ml IVFLUSH QSHIFT [facility] Tamsulosin HCl (Tamsulosin Hcl 0.4 Mg Capsule) 0.4 mg PO DAILY [facility] Home Medications Medication Instructions Recorded Confirmed Last Taken Type cyanocobalamin (vitamin B-12) 500 1,000 mcg PO BEDTIME 12/29/22 11/04/23 11/03/23 History mcg tablet ferrous sulfate 325 mg (65 mg 325 mg PO DAILY 04/29/23 11/04/23 11/04/23 History iron) tablet,delayed release bumetanide 1 mg tablet 1 mg PO DAILY 08/25/23 11/04/23 11/04/23 History gabapentin 400 mg capsule 400 mg PO BID 08/25/23 11/04/23 11/04/23 History spironolactone 100 mg tablet 100 mg PO DAILY 08/25/23 11/04/23 11/04/23 History insulin aspart U-100 100 unit/mL 8 unit subcut TID 11/04/23 11/04/23 11/04/23 History (3 mL) subcutaneous pen (Novolog FlexPen U-100 Insulin aspart) Physical Exam Vital Signs and Narrative: Vital Signs: Last Vital Signs Temp 97.6 F 11/04/23 23:05 Pulse 72 11/05/23 00:00 Resp 18 11/05/23 00:00 BP 108/42 L 11/05/23 00:00 Pulse Ox 99 11/05/23 00:00 O2 Del Method Room Air 11/05/23 00:00 BMI result Body Mass Index 27.3 Constitutional - Awake and Alert, No apparent distress. Cooperative. Very talkative. HEENT - Pupils equally round. No scleral icterus Heart - Regular rate and rhythm. Murmurs (+) Lungs - Normal lung expansion, Normal respiratory effort, No respiratory distress, CTA bilaterally Abdomen - distended, (+) fluid wave. Non tenderness. Extremities - bilateral pitting edema. Musculoskeletal - Normal inspection, normal ROM Skin - Warm/Dry Neurological - Alert & oriented x3. No focal weakness. Normal speech. Psychological - Appropriate affect Results Labs 11/04/23 12:36 11/04/23 12:36 Labs: Laboratory Results - last 24 hr 11/04/23 11/04/23 11/04/23 12:36 12:41 14:17 MCV 90.9 MCH 28.5 MCHC 31.3 RDW 15.9 Plt Count 90 L MPV 11.9 Immature Gran % (Auto) 0.4 Neut % (Auto) 78.7 H Lymph % (Auto) 8.8 L [place] % (Auto) 11.1 H Eos % (Auto) 0.4 Baso % (Auto) 0.6 Lymph # (Auto) 0.4 L [place] # (Auto) 0.5 Eos # (Auto) 0.0 Baso # (Auto) 0.0 Abs Immat Gran (auto) 0.02 Absolute Neuts (auto) 3.7 Absolute Nucleated RBC 0.000 Nucleated RBC % (auto) 0.0 PT 13.6 H Whole Blood PT 14.5 H INR 1.1 Whole Blood INR 1.2 H APTT 28.7 Anion Gap 14 Estim Creat Clear Calc 26.7 Estimated GFR 29 POC Glucose 158 H Random Glucose 208 H Calcium 8.3 L Total Creatine Kinase 38 Troponin I High Sens 15.2 D C-Reactive Protein 0.33 Urine Color Urine Appearance Urine pH Ur Specific [place] Urine Protein Urine Glucose (UA) Urine Ketones Urine Blood Urine Nitrite Ur Leukocyte Esterase Urine RBC Urine WBC Ur Squamous Epith Cells Urine Bacteria Hyaline Casts 11/04/23 11/04/23 18:24 21:03 MCV MCH MCHC RDW Plt Count MPV Immature Gran % (Auto) Neut % (Auto) Lymph % (Auto) [place] % (Auto) Eos % (Auto) Baso % (Auto) Lymph # (Auto) [place] # (Auto) Eos # (Auto) Baso # (Auto) Abs Immat Gran (auto) Absolute Neuts (auto) Absolute Nucleated RBC Nucleated RBC % (auto) PT Whole Blood PT INR Whole Blood INR APTT Anion Gap Estim Creat Clear Calc Estimated GFR POC Glucose 221 H Random Glucose Calcium Total Creatine Kinase Troponin I High Sens C-Reactive Protein Urine Color Yellow Urine Appearance Turbid Urine pH 7.0 Ur Specific [place] 1.015 Urine Protein Negative Urine Glucose (UA) >=1000 H Urine Ketones Negative Urine Blood Small (1+) H Urine Nitrite Negative Ur Leukocyte Esterase Large (3+) H Urine RBC 6-10 H Urine WBC >50 H Ur Squamous Epith Cells 0-2 Urine Bacteria None Seen Hyaline Casts 0-2 Imaging Radiologist's Impressions: Impressions Head CT 11/04/23 12:25 IMPRESSION: 1. No acute intracranial pathology. 2. Redemonstrated left frontal calcified meningioma. 3. Chronic white matter small vessel ischemic changes. 4. Cerebral atrophy with commensurate ventricular changes. 5. Soft tissue swelling and skin eli overlying the right posterior cranial apex without underlying bony defect noted. This critical result was discussed with Giorgi Gutierrez by telephone on 11/04/2023 12:37 PM and it was ascertained that the content and urgency of the report was understood at the time of direct communication. Assessment and Plan (1) Anemia: Status: Acute (2) Hyperkalemia: Status: Acute (3) CAD (coronary artery disease): Qualifiers: Coronary Disease-Associated Artery/Lesion type: [place] artery [place] vs. transplanted heart: [place] heart Associated angina: without angina Qualified Code(s): I25.10 - Atherosclerotic heart disease of [place] coronary artery without angina pectoris Status: Acute Plan Kwaku Lopes is 78 years old man admitted with: Hyperkalemia. Likely secondary to spironolactone. Admit to hospitalist service. Lokelma given in the emergency department. Hold spironolactone. Continue to monitor potassium level. Recurrent fall. Physiotherapy. Essential hypertension. Continue carvedilol. Chronic pancytopenia/pernicious anemia. Hemoglobin is 6.6 this morning. Will transfuse 1 unit of PRBCs. Patient received infusions of Venofer. Continue vitamin B12. Type 2 diabetes mellitus. Blood glucose monitoring before meals at bedtime. Continue Lantus and insulin sliding scale. Cirrhosis of the liver with ascites. Continue Bumex. Continue IR consult for paracentesis. Obstructive sleep apnea. Nocturnal CPAP. Chronic kidney disease. Renal function at baseline. Avoid nephrotoxic agents. Recent head trauma resulting on the scalp laceration s/p eli. Eli to be removed 10 days after the injury. Hyperlipidemia. Continue atorvastatin. Anxiety. Xanax as needed. History of prostate cancer and BPH. Continue tamsulosin and Proscar. Coronary artery disease. Continue aspirin and statin. s/p TVAR. DVT prophylaxis: SCDs only (pharmacological VTE prophylaxis not ordered due to thrombocytopenia). Code status: Full Patient will need hospitalization for at least 2 midnights for hyperkalemia treatment and close monitoring of potassium level. Quality Stroke Does the patient have a stroke diagnosis?: No VTE Prior VTE?: No VTE Risk Level:: Medical - moderate - high VTE Device Contraindication: Treatment Not Indicated VTE Drug Contraindication: N/A - Med Ordered
[2023-11-05 06:17] LABS: Basophils Percent Auto 0.8 % (0-2); Eosinophils Percent Auto 0.8 % (0-4); Imm Gran Abs Auto 0.02 X10*3/uL (0.00-0.03); Imm Gran Pct Auto 0.5 % (0.0-0.4); Lymphocytes Absolute Auto 0.4 X10*3/uL (1.2-4.9); Lymphocytes Percent Auto 10.9 % (20-40); Mean Corpuscular HGB Conc 31.4 g/dl (31.0-36.0); Mean Corpuscular Hemoglobin 28.8 pg (27.0-33.0); Mean Corpuscular Volume 91.7 fL (80.0-98.0); Mean Platelet Volume 10.9 fL (9.4-12.4); Monocytes Absolute Auto 0.5 X10*3/uL (0.1-1.2); Monocytes Percent Auto 12.7 % (2-11); Neutrophils Absolute Auto 2.9 x10*3/uL (2.0-8.3); Neutrophils Percent Auto 74.3 % (45-73); Red Blood Count 2.29 X10*6/uL (4.60-5.80); Red Cell Distribution Width 15.8 % (11.0-16.0)
[2023-11-05 06:33] LABS: Alanine Aminotransferase 32 U/L (0-40); Albumin Level 2.7 g/dL (3.5-5.0); Alkaline Phosphatase 122 U/L (39-117); Anion Gap 13 (12-20); Aspartate Amino Transferase 25 U/L (5-37); Bilirubin Total 0.4 mg/dL (0.0-1.0); Blood Urea Nitrogen 62 mg/dL (9-16); Carbon Dioxide 22 mmol/L (22-29); Chloride 109 mmol/L (96-108); Estimated Glomerular Filt Rate 29; Glucose Random 190 mg/dL (60-115); Magnesium 2.4 mg/dL (1.6-2.6); Potassium 5.4 mmol/L (3.3-5.1); Sodium 139 mmol/L (135-145); Total Protein 5.2 g/dL (6.5-8.0)
[2023-11-05 06:40] LABS: Hemoglobin 6.6 g/dl (14.0-18.0)
[2023-11-05 06:41] LABS: Platelet Count 75 X10*3/uL (160-400)
[2023-11-05] MEDS: Acetaminophen 325 MG TABLET 975 MG PO (06:42)
--- NOTE | 2023-11-05 07:40 | PC.NURSE ---
Pt given breakfast tray.
[2023-11-05 07:42] LABS: Glucose, Whole Blood 157 mg/dL (60-115)
[2023-11-05] MEDS: Insulin Lispro 100 UNIT/ML 3 ML VIAL 8 UNIT SUBCUT ×3 (07:50→18:15)
[2023-11-05] MEDS: cefTRIAXone sodium 1 GM in 0.9 % Sodium Chloride 50 ML IV (07:51)
[2023-11-05] MEDS: Insulin Lispro 100 UNIT/ML 3 ML VIAL SUBCUT ×4 (07:51→21:51)
[2023-11-05] MEDS: Bethanechol Chloride 25 MG TABLET PO ×2 (08:54→21:51)
[2023-11-05] MEDS: Bumetanide 1 MG TABLET PO (08:54)
[2023-11-05] MEDS: Omeprazole 40 MG CAPSULE.DR PO (08:55)
[2023-11-05] MEDS: Ezetimibe 10 MG TABLET PO (08:55)
[2023-11-05] MEDS: Gabapentin 400 MG CAPSULE PO ×2 (08:55→21:51)
[2023-11-05] MEDS: Aspirin Enteric Coated 81 MG TABLET.DR PO (08:55)
[2023-11-05] MEDS: carvediloL 6.25 MG TABLET PO ×2 (08:55→21:51)
[2023-11-05] MEDS: Ferrous Sulfate 324 MG TABLET.DR PO (08:56)
[2023-11-05] MEDS: Folic Acid 1 MG TABLET PO (08:56)
[2023-11-05] MEDS: Finasteride 5 MG TABLET PO (08:56)
[2023-11-05] MEDS: Tamsulosin HCL 0.4 MG CAPSULE PO (08:56)
[2023-11-05] MEDS: 0.9 % Sodium Chloride Flush 3 ML SYRINGE IVFLUSH ×2 (08:58→23:30)
--- NOTE | 2023-11-05 09:08 | PC.NURSE ---
report from [facility]. blood has been requested.
--- NOTE | 2023-11-05 09:13 | MHC.CM.PN ---
Patient is here with AMS; CM spoke with Son/HCP/Blaise @ [phone] and addressed IMM with him (original will be mailed certified letter to Blaise and a copy will be placed on the chart). Patient lives in a house with his and he uses both a cane and a walker to assist with mobility. Patient will benefit from a PT eval to assist with disposition; CM has initiated and will follow for dc planning. PCP/PA is Roberto Carlos Cisneros.
--- NOTE | 2023-11-05 09:30 | PC.NURSE ---
md barnes aware low diastolic with normal maps >65, no dizziness/sob/cp/sx txn rxn with blood u
--- NOTE | 2023-11-05 09:45 | PC.NURSE ---
ate breakfast. no distress. calm, coop. avery cath c/d/i yellow clear urine in bag
--- NOTE | 2023-11-05 11:19 | PC.RT ---
pt states he does not wanna wear cpap while he is here due to his 10 jignesh on his head as it is very painful.
--- NOTE | 2023-11-05 12:00 | PC.NURSE ---
urinary incontinence- new pad, boosted, repositioned, new gown, benjamin wiped.
--- NOTE | 2023-11-05 12:16 | MHC.EDTECH ---
pt was found with [place] cath removed and incontinent of urine. new [place] cath was placed, pt now cleaned and dry, warm linen was given. pt now comfortable in bed, rn aware.
--- NOTE | 2023-11-05 12:16 | MHC.EDTECH ---
car salesperson came to pt room asking for pt's keys. pt gave this writer producer permission to give car salesperson the pt's car keys. keys were found locked up with security. security handed keys to this tech. rn aware
--- NOTE | 2023-11-05 13:00 | PC.NURSE ---
ate lunch. given phone to call family per request as his cell is not working well. no distress.
[2023-11-05 13:24] LABS: Glucose, Whole Blood 250 mg/dL (60-115)
--- NOTE | 2023-11-05 15:00 | PC.NURSE ---
new [place] cath applied for urinary incontinence- new pad, boosted, repositioned, new gown, benjamin wiped
--- NOTE | 2023-11-05 15:39 | PM.EVENT ---
Event Note Date of Service: 11/05/23 Event Note: Chart reviewed/patient examined. Agree with H&P and plan as outlined. Appreciate hematology Time Spent With Patient Time: Total time managing care of this patient today ____ minutes.
--- NOTE | 2023-11-05 17:00 | PC.NURSE ---
boosted, repositioned, changed pad/gown/new [place] cath.
--- NOTE | 2023-11-05 17:08 | MHC.EDTECH ---
THIS PCT ASSUMED CARE OF PATIENT AT 1500 ,PATIENT WAS INCONTINENT OF URINE ,CARE GIVEN BY THIS PCT AND MATI MENDEZ ,PATIENT BELONINGS LIST DONE ,AND BLOOD SUGAR CHECK .
[2023-11-05 17:13] LABS: Glucose, Whole Blood 202 mg/dL (60-115)
--- NOTE | 2023-11-05 18:17 | PC.NURSE ---
md barnes notified pt bp 90s/30s, no new orders. no distress/dizziness. talking full sentences. boosted, given dinner.
--- NOTE | 2023-11-05 18:18 | PC.NURSE ---
asked md barnes if he wants a repeat h/h tonight- awaiting response.
--- NOTE | 2023-11-05 18:25 | PC.NURSE ---
set up for dinner, boosted.
--- NOTE | 2023-11-05 19:23 | PC.NURSE ---
report entered- [employer]/naomi aware. next rn blane aware.
[2023-11-05 20:25] LABS: Glucose, Whole Blood 151 mg/dL (60-115)
[2023-11-05] MEDS: Cyanocobalamin (Vitamin B-12) 1,000 MCG TABLET 1000 MCG PO (21:51)
[2023-11-05] MEDS: Atorvastatin Calcium 80 MG TABLET PO (21:51)
[2023-11-05] MEDS: Insulin Glargine,Hum.rec.anlog 100 UNIT/ML 10 ML VIAL 7 UNIT SUBCUT (21:52)
[2023-11-05 23:13] LABS: Hematocrit 24.3 % (42.0-52.0); Hemoglobin 7.7 g/dl (14.0-18.0)
[2023-11-06] VITALS (7 sets, daily range): BP systolic 91–107; BP diastolic 44–55; PULSE 60–67; RESP 16–20; TEMP 36.4–36.8; O2SAT 96–99
--- NOTE | 2023-11-06 01:40 | PC.NURSE ---
Patient communicated that he does use cpap at home but for past few days he was unable to use cpap due to head laceration/jignesh.
[2023-11-06 07:37] LABS: Glucose, Whole Blood 161 mg/dL (60-115)
[2023-11-06] MEDS: Insulin Lispro 100 UNIT/ML 3 ML VIAL 8 UNIT SUBCUT ×3 (08:20→17:14)
[2023-11-06] MEDS: Insulin Lispro 100 UNIT/ML 3 ML VIAL SUBCUT ×4 (08:21→20:40)
[2023-11-06] MEDS: cefTRIAXone sodium 1 GM in 0.9 % Sodium Chloride 50 ML IV (08:22)
[2023-11-06] MEDS: 0.9 % Sodium Chloride Flush 3 ML SYRINGE IVFLUSH ×3 (08:29→20:42)
[2023-11-06] MEDS: carvediloL 6.25 MG TABLET PO ×2 (08:31→20:39)
[2023-11-06] MEDS: Aspirin Enteric Coated 81 MG TABLET.DR PO (08:31)
[2023-11-06] MEDS: Bumetanide 1 MG TABLET PO (08:31)
[2023-11-06] MEDS: Gabapentin 400 MG CAPSULE PO ×2 (08:31→20:39)
[2023-11-06] MEDS: Bethanechol Chloride 25 MG TABLET PO ×2 (08:31→20:38)
[2023-11-06] MEDS: Folic Acid 1 MG TABLET PO (08:32)
[2023-11-06] MEDS: Omeprazole 40 MG CAPSULE.DR PO (08:32)
[2023-11-06] MEDS: Finasteride 5 MG TABLET PO (08:32)
[2023-11-06] MEDS: Ferrous Sulfate 324 MG TABLET.DR PO (08:32)
[2023-11-06] MEDS: Ezetimibe 10 MG TABLET PO (08:32)
[2023-11-06] MEDS: Tamsulosin HCL 0.4 MG CAPSULE PO (08:32)
[2023-11-06 09:48] LABS: Basophils Percent Auto 0.9 % (0-2); Eosinophils Percent Auto 0.9 % (0-4); Hematocrit 27.4 % (42.0-52.0); Hemoglobin 8.5 g/dl (14.0-18.0); Imm Gran Abs Auto 0.01 X10*3/uL (0.00-0.03); Imm Gran Pct Auto 0.2 % (0.0-0.4); Lymphocytes Absolute Auto 0.5 X10*3/uL (1.2-4.9); MANUAL DIFF FLAG NO; Mean Corpuscular Hemoglobin 28.8 pg (27.0-33.0); Mean Corpuscular Volume 92.9 fL (80.0-98.0); Monocytes Absolute Auto 0.6 X10*3/uL (0.1-1.2); Monocytes Percent Auto 12.6 % (2-11); Neutrophils Absolute Auto 3.4 x10*3/uL (2.0-8.3); Neutrophils Percent Auto 75.4 % (45-73); Red Blood Count 2.95 X10*6/uL (4.60-5.80); Red Cell Distribution Width 16.1 % (11.0-16.0); White Blood Count 4.5 X10*3/uL (4.8-10.8)
[2023-11-06 09:53] LABS: Platelet Count 83 X10*3/uL (160-400)
[2023-11-06 10:03] LABS: Alanine Aminotransferase 32 U/L (0-40); Alkaline Phosphatase 123 U/L (39-117); Anion Gap 14 (12-20); Aspartate Amino Transferase 24 U/L (5-37); Bilirubin Total 0.6 mg/dL (0.0-1.0); Blood Urea Nitrogen 64 mg/dL (9-16); Calcium 8.2 mg/dL (8.4-10.2); Carbon Dioxide 22 mmol/L (22-29); Chloride 109 mmol/L (96-108); Creatinine Clr Calc Pharmacy 28.4; Estimated Glomerular Filt Rate 31; Glucose Random 216 mg/dL (60-115); Potassium 4.9 mmol/L (3.3-5.1); Sodium 140 mmol/L (135-145); Total Protein 5.8 g/dL (6.5-8.0)
[2023-11-06 11:33] LABS: Glucose, Whole Blood 266 mg/dL (60-115)
--- NOTE | 2023-11-06 15:16 | HO.PM.IMPN ---
Subjective Subjective Date of Service: 11/06/23 Interval History: No acute bleeding overnight. Hemoglobin remained stable Review of Systems Denies chest pain Denies shortness of breath Denies nausea vomiting diarrhea Denies fever chills Physical Exam Vital Signs: Vital Signs: Last Vital Signs Temp 97.5 F 11/06/23 11:37 Pulse 60 11/06/23 11:37 Resp 16 11/06/23 11:37 BP 91/44 L 11/06/23 11:37 Pulse Ox 98 11/06/23 11:37 O2 Del Method Room Air 11/06/23 11:37 BMI result Body Mass Index 27.3 Const: Other: Awake alert oriented x3 no acute distress Resp: Other: Clear to auscultation bilaterally no rales rhonchi or wheezes Cardio: Other: No S4; positive S1-S2; no S3 murmurs rubs or gallops GI: Other: Soft nontender nondistended normoactive bowel sounds Extrem: Other: No edema bilaterally Objective Data Active Medications Acetaminophen (Acetaminophen 325 Mg Tablet) 975 mg PO Q6H PRN PRN Reason: Pain, Mild (Pain Scale 1-3) Last Admin: 11/05/23 06:42 Dose: 975 mg Documented By: FENG Alprazolam (Alprazolam 0.5 Mg Tablet) 0.5 mg PO BID PRN PRN Reason: Anxiety Aspirin (Aspirin Enteric Coated 81 Mg Tablet.) 81 mg PO DAILY [facility] Last Admin: 11/06/23 08:31 Dose: 81 mg Documented By: KAYLYN Atorvastatin Calcium (Atorvastatin Calcium 80 Mg Tablet) 80 mg PO BEDTIME [facility] Last Admin: 11/05/23 21:51 Dose: 80 mg Documented By: ASHLEY Bethanechol Chloride (Bethanechol Chloride 25 Mg Tablet) 25 mg PO BID [facility] Last Admin: 11/06/23 08:31 Dose: 25 mg Documented By: KAYLYN Bumetanide (Bumetanide 1 Mg Tablet) 1 mg PO DAILY [facility]; Protocol Last Admin: 11/06/23 08:31 Dose: 1 mg Documented By: KAYLYN Carvedilol (Carvedilol 6.25 Mg Tablet) 6.25 mg PO BID [facility]; Protocol Last Admin: 11/06/23 08:31 Dose: 6.25 mg Documented By: KAYLYN Cyanocobalamin (Cyanocobalamin (Vitamin B-12) 1,000 Mcg Tablet) 1,000 mcg PO BEDTIME [facility] Last Admin: 11/05/23 21:51 Dose: 1,000 mcg Documented By: ASHLEY Dextrose (Dextrose 50 % 25 Gm/50 Ml Syringe) 25 gm IVPUSH Q15M PRN; Protocol PRN Reason: per Hypoglycemia Standing Ord. Ezetimibe (Ezetimibe 10 Mg Tablet) 10 mg PO DAILY [facility] Last Admin: 11/06/23 08:32 Dose: 10 mg Documented By: KAYLYN Ferrous Sulfate (Ferrous Sulfate 324 Mg Tablet.Dr) 324 mg PO DAILY [facility] Last Admin: 11/06/23 08:32 Dose: 324 mg Documented By: KAYLYN Finasteride (Finasteride 5 Mg Tablet) 5 mg PO DAILY [facility] Last Admin: 11/06/23 08:32 Dose: 5 mg Documented By: KAYLYN Folic Acid (Folic Acid 1 Mg Tablet) 1 mg PO DAILY [facility] Last Admin: 11/06/23 08:32 Dose: 1 mg Documented By: KAYLYN Gabapentin (Gabapentin 400 Mg Capsule) 400 mg PO BID [facility] Last Admin: 11/06/23 08:31 Dose: 400 mg Documented By: KAYLYN Glucose (Glucose Gel 15 Gm Gel..Gram.) 15 gm PO Q15M PRN; Protocol PRN Reason: per Hypoglycemia Standing Ord. Ceftriaxone Sodium 1 gm/ (Sodium Chloride) 50 mls @ 100 mls/hr IV Q24H [facility] Last Infusion: 11/06/23 09:43 Dose: Infused Documented By: KAYLYN Insulin Glargine (Insulin Glargine,Hum.Rec.Anlog 100 Unit/Ml 10 Ml Vial) 7 unit SUBCUT BEDTIME [facility] Last Admin: 11/05/23 21:52 Dose: 7 unit Documented By: ASHLEY Insulin Human Lispro (Insulin Lispro 100 Unit/Ml 3 Ml Vial) 8 unit SUBCUT TIDAC [facility] Last Admin: 11/06/23 11:51 Dose: 8 unit Documented By: KAYLYN Insulin Human Lispro (Insulin Lispro 100 Unit/Ml 3 Ml Vial) 0 unit SUBCUT QIDACHS [facility]; Protocol Last Admin: 11/06/23 11:51 Dose: 6 unit Documented By: KAYLYN Omeprazole (Omeprazole 40 Mg Capsule.Dr) 40 mg PO DAILY [facility] Last Admin: 11/06/23 08:32 Dose: 40 mg Documented By: KAYLYN Sodium Chloride (0.9 % Sodium Chloride Flush 3 Ml Syringe) 3 ml IVFLUSH QSHIFT [facility] Last Admin: 11/06/23 08:29 Dose: 3 ml Documented By: KAYLYN Tamsulosin HCl (Tamsulosin Hcl 0.4 Mg Capsule) 0.4 mg PO DAILY [facility] Last Admin: 11/06/23 08:32 Dose: 0.4 mg Documented By: KAYLYN Labs 11/06/23 09:34 11/06/23 09:34 Labs: Laboratory Results - last 24 hr 11/05/23 11/05/23 11/06/23 17:07 20:22 07:04 MCV MCH MCHC RDW Plt Count MPV Immature Gran % (Auto) Neut % (Auto) Lymph % (Auto) [place] % (Auto) Eos % (Auto) Baso % (Auto) Lymph # (Auto) [place] # (Auto) Eos # (Auto) Baso # (Auto) Abs Immat Gran (auto) Absolute Neuts (auto) Absolute Nucleated RBC Nucleated RBC % (auto) Anion Gap Estim Creat Clear Calc Estimated GFR POC Glucose 202 H 151 H 161 H Random Glucose Calcium Total Bilirubin AST ALT Alkaline Phosphatase Total Protein Albumin Hold Yellow Top 11/06/23 11/06/23 09:34 11:25 MCV 92.9 MCH 28.8 MCHC 31.0 RDW 16.1 H Plt Count 83 L MPV 11.0 Immature Gran % (Auto) 0.2 Neut % (Auto) 75.4 H Lymph % (Auto) 10.0 L [place] % (Auto) 12.6 H Eos % (Auto) 0.9 Baso % (Auto) 0.9 Lymph # (Auto) 0.5 L [place] # (Auto) 0.6 Eos # (Auto) 0.0 Baso # (Auto) 0.0 Abs Immat Gran (auto) 0.01 Absolute Neuts (auto) 3.4 Absolute Nucleated RBC 0.000 Nucleated RBC % (auto) 0.0 Anion Gap 14 Estim Creat Clear Calc 28.4 Estimated GFR 31 POC Glucose 266 H Random Glucose 216 H Calcium 8.2 L Total Bilirubin 0.6 AST 24 ALT 32 Alkaline Phosphatase 123 H Total Protein 5.8 L Albumin 3.0 L Hold Yellow Top See Note Microbiology Microbiology Results: Microbiology 11/04/23 Unknown Urine Culture - Final Urine clean catch - Urine izaguirre top No growth. Assessment and Plan (1) Symptomatic anemia: Status: Acute Plan Kwaku Lopes is 78 years old man admitted from Hematology Oncology with concerns for altered mental status and unsteadiness. Initial workup in emergency room found patient to be hyperkalemic and profoundly anemic. 1. Symptomatic anemia -transfused 2 units of packed red cells with excellent response to hemoglobin -hemoglobin has remained stable over last 24 hours; recheck in a.m. -treat as clinically indicated 2. Hyperkalemia -resolved -continue to hold Aldactone -follow renals/divalents 3. DM 2 -acceptable control on current therapies -lispro correctional scale -adjust as indicated DVT prophylaxis: SCDs Code status: Full Will require ongoing hospitalization to document stability of anemia post transfusion Quality Stroke Does the patient have a stroke diagnosis?: No VTE Prior VTE?: No VTE Risk Level:: Medical - moderate - high VTE Device Contraindication: Treatment Not Indicated VTE Drug Contraindication: N/A - Med Ordered
[2023-11-06 16:43] LABS: Glucose, Whole Blood 328 mg/dL (60-115)
--- NOTE | 2023-11-06 17:44 | P.CDIM_ITS ---
PROVIDER RESPONSE TEXT: To clarify, the appropriate diagnosis supported by the clinical indicators: Acute on chronic kidney disease: 3 QUERY TEXT: PHYSICIAN'S DOCUMENTATION REQUEST Date of Query: 11/06/2023 08:00 AM EST Patient Name: Kwaku Lopes Admit Date: 11/05/2023 Dear Rg Rojas, A review of the medical record indicates additional documentation may be needed. Please review below and update the documentation accordingly. Clinical Indicators: H&P: Chronic kidney disease - renal function at baseline. Avoid nephrotoxic agents. Hematology note 11/05 - renal insufficiency, this has worsened. Bun 67 CR 2.18 GFR 29 Please clarify which of the following accurately represents the patient's renal status: Acute on chronic kidney disease please provide the stage of the CKD Chronic kidney disease please provide the stage of the noted CKD Other (explain) Clinically unable to determine (explain) Thank you, Ariadna aL, CCS, CDIS Use of terms such as suspected, likely, concern for, or probable (associated with a specific diagnosi s that is being evaluated, monitored, or treated as if it exists) are acceptable and can be coded in the inpatient se tting, when documented at the time of discharge. Please use your independent medical judgment in providing your response. THIS QUERY IS PART OF THE PERMANENT MEDICAL RECORD
[2023-11-06] MEDS: Cyanocobalamin (Vitamin B-12) 1,000 MCG TABLET 1000 MCG PO (20:39)
[2023-11-06] MEDS: Atorvastatin Calcium 80 MG TABLET PO (20:39)
[2023-11-06] MEDS: Insulin Glargine,Hum.rec.anlog 100 UNIT/ML 10 ML VIAL 7 UNIT SUBCUT (20:40)
[2023-11-06 21:19] LABS: Glucose, Whole Blood 229 mg/dL (60-115)
--- NOTE | 2023-11-06 23:58 | PC.RT ---
pt refused, states he has jignesh where the straps would sit and would be painful
[2023-11-07 03:31] VITALS: BP 96/47; PULSE 70; RESP 20; TEMP 36.9; O2SAT 99
[2023-11-07 07:27] VITALS: BP 105/52; PULSE 62; RESP 20; TEMP 36.5; O2SAT 96
[2023-11-07 07:42] LABS: Glucose, Whole Blood 193 mg/dL (60-115)
[2023-11-07] MEDS: Bumetanide 1 MG TABLET PO (10:24)
[2023-11-07] MEDS: Finasteride 5 MG TABLET PO (10:24)
[2023-11-07] MEDS: Ezetimibe 10 MG TABLET PO (10:24)
[2023-11-07] MEDS: carvediloL 6.25 MG TABLET PO (10:25)
[2023-11-07] MEDS: Ferrous Sulfate 324 MG TABLET.DR PO (10:25)
[2023-11-07] MEDS: Omeprazole 40 MG CAPSULE.DR PO (10:25)
[2023-11-07] MEDS: Aspirin Enteric Coated 81 MG TABLET.DR PO (10:25)
[2023-11-07] MEDS: Tamsulosin HCL 0.4 MG CAPSULE PO (10:25)
[2023-11-07] MEDS: Folic Acid 1 MG TABLET PO (10:25)
[2023-11-07] MEDS: Bethanechol Chloride 25 MG TABLET PO (10:25)
[2023-11-07] MEDS: 0.9 % Sodium Chloride Flush 3 ML SYRINGE IVFLUSH (10:26)
[2023-11-07] MEDS: cefTRIAXone sodium 1 GM in 0.9 % Sodium Chloride 50 ML IV (10:26)
[2023-11-07] MEDS: Gabapentin 400 MG CAPSULE PO (10:26)
[2023-11-07 10:47] LABS: MANUAL DIFF FLAG NO
[2023-11-07 10:48] LABS: Basophils Percent Auto 0.7 % (0-2); Eosinophils Absolute Auto 0.1 X10*3/uL (0.0-0.4); Eosinophils Percent Auto 0.9 % (0-4); Hematocrit 26.7 % (42.0-52.0); Hemoglobin 8.3 g/dl (14.0-18.0); Imm Gran Abs Auto 0.04 X10*3/uL (0.00-0.03); Imm Gran Pct Auto 0.7 % (0.0-0.4); Lymphocytes Absolute Auto 0.4 X10*3/uL (1.2-4.9); Lymphocytes Percent Auto 7.8 % (20-40); Mean Corpuscular HGB Conc 31.1 g/dl (31.0-36.0); Mean Corpuscular Hemoglobin 29.2 pg (27.0-33.0); Mean Platelet Volume 11.3 fL (9.4-12.4); Monocytes Absolute Auto 0.6 X10*3/uL (0.1-1.2); Monocytes Percent Auto 10.4 % (2-11); Neutrophils Absolute Auto 4.3 x10*3/uL (2.0-8.3); Neutrophils Percent Auto 79.5 % (45-73); Red Blood Count 2.84 X10*6/uL (4.60-5.80); Red Cell Distribution Width 16.3 % (11.0-16.0); White Blood Count 5.4 X10*3/uL (4.8-10.8)
[2023-11-07 10:49] LABS: Platelet Count 89 X10*3/uL (160-400)
[2023-11-07 11:25] VITALS: BP 112/56; PULSE 64; RESP 20; TEMP 36.4; O2SAT 97
[2023-11-07 11:33] LABS: Glucose, Whole Blood 261 mg/dL (60-115)
[2023-11-07] MEDS: Insulin Lispro 100 UNIT/ML 3 ML VIAL 8 UNIT SUBCUT (11:55)
[2023-11-07] MEDS: Insulin Lispro 100 UNIT/ML 3 ML VIAL SUBCUT (11:55)
--- NOTE | 2023-11-07 12:12 | P.DS_ITS ---
DS: Providers Provider Date of Service: 11/07/23 Date of admission: 11/05/23 01:09 Date of discharge: 11/07/23 Primary care physician: Roberto Carlos Cisneros PA-C Consults: 11/06/23 08:44 Consult to Wound Care Routine Reason for consultation: wound top of head (8 jignesh) and large bruises from fall DS: Diagnosis Discharge Diagnosis (1) Symptomatic anemia: Status: Acute DS: Summary Hospital Course Hospital Course: 78 years old man with past medical history significant for type 2 diabetes mellitus on insulin, hepatic cirrhosis complicated with esophageal varices and ascites, obstructive sleep apnea, prostate CA (status post laser therapy and radiation therapy), chronic pancytopenia, pernicious anemia/vitamin B12 deficiency therapy (receives Venofer infusions), obstructive sleep apnea on CPAP, coronary artery disease, pacemaker implantation, hypertension, s/p TAVR and hyperlipidemia was brought to the emergency department from the [facility] hematology for concern by staff for altered mental status, unsteadiness and frequent falls. On Thursday, he sustained a head trauma and scalp wound after a fall requiring jignesh. The patient goes to the Hematology center to get tra nsfusions regularly. At this time he denied any headache, shortness on breath, chest pain, abdominal pain, nausea, vomiting or diarrhea. He does have abdominal distention secondary to ascites. In the ED he has been found to have stable vital signs. Blood workup remarkable for anemia which is at baseline. Hyperkalemia of 5.5 and elevated creatinine which is at baseline. Troponin and CRP are negative. Urinalysis consistent with urinary tract infection. Head CT scan showed no acute changes. Hospital Course Admitted to telemetry. Transfuse 2 units of packed red cells; hemoglobin remained stable. At this point in time he is medically acceptable for discharge home to follow up with PCP Time Attestation Discharge coordination time: Greater than 30 minutes Quality: Safe Use of Opioids Does Pt have an Active Cancer Diagnosis on the Problem List?: No Quality: Stroke Does the patient have a stroke diagnosis?: No Physical Exam Vital Signs: Vital Signs: Last Vital Signs Temp 97.5 F 11/07/23 11:25 Pulse 64 11/07/23 11:25 Resp 20 11/07/23 11:25 BP 112/56 L 11/07/23 11:25 Pulse Ox 97 11/07/23 11:25 O2 Del Method Room Air 11/07/23 11:25 BMI result Body Mass Index 27.3 Const: Other: Awake alert oriented x3 no acute distress Resp: Other: Clear to auscultation bilaterally no rales rhonchi or wheezes Cardio: Other: No S4; positive S1-S2; no S3 murmurs rubs or gallops GI: Other: Soft nontender nondistended normoactive bowel sounds Extrem: Other: No edema bilaterally DS: Data Data Completed and Pending Completed studies during hospitalization [Text1]: Procedures Destruction of Bladder Neck, Via Natural or Artificial Opening Endoscopic (06/17/22) Extirpation of Matter from Bladder, Via Natural or Artificial Opening Endoscopic (06/17/22) Transfusion of Nonautologous Red Blood Cells into Peripheral Vein, Percutaneous Approach (08/25/23) Labs on day of discharge: Laboratory Results - last 24 hr 11/06/23 11/06/23 11/07/23 16:37 20:17 07:30 WBC RBC Hgb Hct MCV MCH MCHC RDW Plt Count MPV Immature Gran % (Auto) Neut % (Auto) Lymph % (Auto) [place] % (Auto) Eos % (Auto) Baso % (Auto) Lymph # (Auto) [place] # (Auto) Eos # (Auto) Baso # (Auto) Abs Immat Gran (auto) Absolute Neuts (auto) Absolute Nucleated RBC Nucleated RBC % (auto) POC Glucose 328 H 229 H 193 H 11/07/23 11/07/23 10:42 11:28 WBC 5.4 RBC 2.84 L Hgb 8.3 L Hct 26.7 L MCV 94.0 MCH 29.2 MCHC 31.1 RDW 16.3 H Plt Count 89 L MPV 11.3 Immature Gran % (Auto) 0.7 H Neut % (Auto) 79.5 H Lymph % (Auto) 7.8 L [place] % (Auto) 10.4 Eos % (Auto) 0.9 Baso % (Auto) 0.7 Lymph # (Auto) 0.4 L [place] # (Auto) 0.6 Eos # (Auto) 0.1 Baso # (Auto) 0.0 Abs Immat Gran (auto) 0.04 H Absolute Neuts (auto) 4.3 Absolute Nucleated RBC 0.000 Nucleated RBC % (auto) 0.0 POC Glucose 261 H Discharge Plan Discharge Anticipated Discharge Date/Time: 11/07/23 12:04 Patient Disposition: Home Health Service Discharge Diagnosis: Anemia Referrals: [facility] [Outside] Roberto Carlos Cisneros PA-C [Primary Care Provider] - 1 Week Discharge Medications: New carvedilol 6.25 mg Tablet 6.25 mg PO BID Qty: 60 0RF Protocol: Hold for SBP/HR < HOLD for SBP < : 90 HOLD for HR < : 60 Continued (DME) FreeStyle Marleni 14 Day [place] Misc See Rx Instructions .Route Qty: 1 0RF Rx Instructions: As directed (DME) FreeStyle Marleni 14 Day Sensor Kit See Rx Instructions .Route Qty: 2 2RF Rx Instructions: As directed (DME) blood-glucose meter [FreeStyle Lite Meter] Kit See Rx Instructions .Route Qty: 1 0RF Rx Instructions: As directed tamsulosin 0.4 mg capsule 0.4 mg PO DAILY 90 Days Qty: 90 1RF alprazolam 0.5 mg tablet 0.5 mg PO BID PRN (Reason: Anxiety) 30 Days Qty: 60 2RF folic acid 800 mcg tablet 0.8 mg PO DAILY 30 Days Qty: 30 3RF bethanechol chloride 25 mg tablet 25 mg PO BID 90 Days Qty: 180 1RF (DME) pen needle, diabetic [BD Ultra-Fine Gifty Pen Needle] 32 gauge x 5/32 needle See Rx Instructions .ROUTE .MEDSUPPLY Qty: 50 3RF Rx Instructions: As directed (DME) pen needle, diabetic [BD Gifty 2nd Gen Pen Needle] 32 gauge x 5/32 needle See Rx Instructions .MEDSUPPLY Qty: 150 5RF Rx Instructions: 4 times a day Farxiga 10 mg tablet 10 mg PO DAILY 30 Days Qty: 30 3RF ezetimibe [Zetia] 10 mg tablet 10 mg PO DAILY Qty: 30 3RF (DME) FreeStyle Test Strip See Rx Instructions .Route Qty: 100 3RF Rx Instructions: three times per day cyanocobalamin (vitamin B-12) 500 mcg Tablet 1,000 mcg PO BEDTIME bumetanide 1 mg tablet 1 mg PO DAILY spironolactone 100 mg tablet 100 mg PO DAILY Protocol: Hold for SBP< HOLD for SBP < : 120 gabapentin 400 mg capsule 400 mg PO BID insulin aspart U-100 [Novolog FlexPen U-100 Insulin] 100 unit/mL (3 mL) insulin pen 8 unit subcut TID Rx Instructions: see directions per sliding scale subcutaneously 3 times a day; Blood sugar 70-130- take 0 units Blood sugar 131-180- take 4 units Blood sugar 181-240- take 8 units Blood sugar 241-to 300- take 10 units Blood sugar 301-to 350- take 12 units Blood sugar 351-400- take 16 units Blood sugar over 400 please call PCP (DME) lancets [FreeStyle Lancets] 28 gauge misc See Rx Instructions .Route Qty: 100 6RF Rx Instructions: As directed three times per day insulin degludec [Tresiba FlexTouch U-100] 100 unit/mL (3 mL) insulin pen 10 unit subcut BEDTIME Qty: 15 0RF (DME) blood pressure test kit-large Kit See Rx Instructions .Route Qty: 1 0RF Rx Instructions: As directed finasteride [Proscar] 5 mg tablet 5 mg PO DAILY 90 Days Qty: 90 1RF carvedilol 6.25 mg tablet 6.25 mg PO BID 30 Days Qty: 60 3RF Rx Instructions: must administer with a meal/food pantoprazole 40 mg tablet,delayed release (DR/EC) 40 mg PO DAILY Qty: 30 3RF atorvastatin 80 mg tablet 80 mg PO BEDTIME 30 Days Qty: 30 3RF aspirin [Adult Aspirin Regimen] 81 mg tablet,delayed release (DR/EC) 81 mg PO DAILY 30 Days Qty: 30 3RF Hold Instructions: hold aspirin until 09/01 ferrous sulfate 325 mg (65 mg iron) tablet,delayed release (DR/EC) 325 mg PO DAILY Discontinued amoxicillin 500 mg Capsule 500 mg PO BID Qty: 1 0RF Discharge Orders: Discharge Order (Routine); Ordered 11/07/23 Ordered By: Rg Rojas Diet: Advance to usual diet Activity on Discharge: As tolerated Stand Alone Forms: Patient Portal Discharge page Care Plan Goals: Resume all medicines as taken before hospital Health Concerns: Follow-up with hematology as scheduled Plan of Treatment: [facility] to resume services upon discharge Assessment: See discharge summary
--- NOTE | 2023-11-07 12:14 | W.MHC.F2F ---
Service Date Service Date: 11/07/23 Encounter Date of encounter: 11/07/23 Encounter: Acute hospitalization Reasons for Services Signs and symptoms assessed: Assess overall well-being inpatient with multiple comorbidities. Physical therapy for ongoing gait training Reason for senior care: medication management and teach disease management Reason for physical therapy: home safety and mobility and therapeutic exercises Homebound: Leaving the home is medically contraindicated at this time without the asist of a device and/or another person due th the listed conditions above and below. Reason homebound: unsteady gait / fall risk and unable to drive Certification: Based on the above findings, I certify that this patient is confined to the home and needs intermittent senior care care, physical therapy and/or speech therapy, or continues to need occupational therapy. The patient is under my care, and I have initiated the establishment of the plan of care. The patient will be followed by a physician who will periodically review the plan of care. Time Spent With Patient Time: Total time managing care of this patient today ____ minutes.
--- NOTE | 2023-11-07 12:27 | MHC.CM.PN ---
PT WILL DC HOME TODAY WITH [facility] TO TRANSPORT
== END 2023-11-07 14:04 | disposition home health service (06) | DRG 641 ==
LOC: HO.ED 23:52 → HO.EDOVER 11-05 01:13 → HO.IMC 11-05 18:56
PROVIDERS: Admitting Provider Internal Medicine; Emergency Provider Emergency Medicine; PCP Physician Assistant; Visit Provider Hospitalist
DX: E87.5 Hyperkalemia (principal); D61.818 Other pancytopenia; K76.6 Portal hypertension; R18.8 Other ascites; N17.9 Acute kidney failure, unspecified; I12.9 Hypertensive chronic kidney disease with stage 1 through stage 4 chronic kidney disease, or unspecified chronic kidney disease; K74.60 Unspecified cirrhosis of liver; G47.33 Obstructive sleep apnea (adult) (pediatric); N18.30 Chronic kidney disease, stage 3 unspecified; I25.10 Atherosclerotic heart disease of native coronary artery without angina pectoris; F41.9 Anxiety disorder, unspecified; D51.0 Vitamin B12 deficiency anemia due to intrinsic factor deficiency; N40.0 Benign prostatic hyperplasia without lower urinary tract symptoms; E11.42 Type 2 diabetes mellitus with diabetic 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; E11.22 Type 2 diabetes mellitus with diabetic chronic kidney disease; R29.6 Repeated falls; Z95.2 Presence of prosthetic heart valve; Z95.0 Presence of cardiac pacemaker; Z91.040 Latex allergy status; Z91.041 Radiographic dye allergy status; Z85.46 Personal history of malignant neoplasm of prostate; Z79.4 Long term (current) use of insulin; Z79.82 Long term (current) use of aspirin; Z79.899 Other long term (current) drug therapy
CPT/HCPCS: 36415; 70450; 80048; 80053; 81001; 82010; 82550; 82803; 82947; 83735; 83930; 84484; 85014; 85018; 85025; 85027; 85610; 85730; 86140; 86850; 86900; 86901; 86923; 87040; 87086; 93005; 97162; 99285; J0613; J0696; P9016

== ENCOUNTER → 2023-11-04 12:18 | Outpatient (BNV) | payer MEDICARE, SELFPAY | PROVIDERS: Emergency Provider Emergency Medicine; PCP Physician Assistant; Visit Provider Internal Medicine Cardiovascular Disease | DX: R94.31 Abnormal electrocardiogram [ECG] [EKG] (principal) | CPT/HCPCS: 93010 ==

== ENCOUNTER → 2023-11-05 01:09 | Outpatient (BNV) | payer MEDICARE, SELFPAY | PROVIDERS: Admitting Provider Internal Medicine; Emergency Provider Emergency Medicine; PCP Physician Assistant; Visit Provider Internal Medicine | DX: D64.9 Anemia, unspecified (principal); E87.5 Hyperkalemia; I25.10 Atherosclerotic heart disease of native coronary artery without angina pectoris | CPT/HCPCS: 99223; 99233; 99238; 99499; G0180 ==

== ENCOUNTER → 2023-11-05 01:09 | Outpatient (BNV) | payer MEDICARE, SELFPAY | PROVIDERS: Admitting Provider Internal Medicine; Emergency Provider Emergency Medicine; PCP Physician Assistant; Visit Provider Internal Medicine Medical Oncology | DX: D64.9 Anemia, unspecified (principal); E87.5 Hyperkalemia | CPT/HCPCS: 99222 ==

== ENCOUNTER 2023-11-09 13:58 | Inpatient (IN) | payer MEDICARE, SELFPAY ==
[2023-11-09 14:07] VITALS: BP 103/36; PULSE 60; RESP 16; TEMP 36.6; O2SAT 100; BMI 25.7
--- NOTE | 2023-11-09 14:09 | ED_ITS ---
HPI - Male Genitourinary General Chief complaint: Urogenital-Male Stated complaint: bleeding from penis Time Seen by Provider: 11/09/23 16:02 Source: patient and EMS Mode of arrival: EMS Limitations: no limitations History of Present Illness HPI Narrative: 78-year-old male came in for evaluation of hematuria. This is an 78-year-old male who lives home independently and provide home care to his patient with past history DM 2, hepatic cirrhosis complicated with esophageal varices and ascites, obstructive sleep apnea, prostate CA s/p radiation, chronic pancytopenia, pernicious anemia, vitamin B12 deficiency (receives Venofer infusion ) history of obstructive sleep apnea on CPAP, CAD, pacemaker implantation, HTN, s/p TAVR. Patient notice passing blood and blood clots with urination, there is dysuria and urgency urination. No recent urological procedure that the patient report, no AC therapy. Patient declined CP, SOB, abdominal pain, lightheadedness, and near syncope. Patient with history of CKD no hemodialysis. Related Data Home Medications Medication Instructions Recorded Confirmed cyanocobalamin (vitamin B-12) 500 1,000 mcg PO BEDTIME 12/29/22 11/04/23 mcg tablet ferrous sulfate 325 mg (65 mg 325 mg PO DAILY 04/29/23 11/04/23 iron) tablet,delayed release bumetanide 1 mg tablet 1 mg PO DAILY 08/25/23 11/04/23 gabapentin 400 mg capsule 400 mg PO BID 08/25/23 11/04/23 spironolactone 100 mg tablet 100 mg PO DAILY 08/25/23 11/04/23 insulin aspart U-100 100 unit/mL 8 unit subcut TID 11/04/23 11/04/23 (3 mL) subcutaneous pen (Novolog FlexPen U-100 Insulin aspart) Previous Rx's Medication Instructions Recorded blood pressure test kit-large #1 ea 11/21/21 blood-glucose meter (FreeStyle #1 ea 10/03/22 Lite Meter kit) flash glucose scanning reader #1 ea 10/03/22 (FreeStyle Marleni 14 Day [place]) flash glucose sensor (FreeStyle #2 ea 10/03/22 Marleni 14 Day Sensor kit) aspirin 81 mg tablet,delayed 81 mg PO DAILY 30 days #30 tabs 03/11/23 release (Adult Aspirin Regimen) atorvastatin 80 mg tablet 80 mg PO BEDTIME 30 days #30 tabs 03/11/23 carvedilol 6.25 mg tablet 6.25 mg PO BID 30 days #60 tabs 03/11/23 finasteride 5 mg tablet (Proscar) 5 mg PO DAILY 90 days #90 tabs 03/11/23 pantoprazole 40 mg tablet,delayed 40 mg PO DAILY #30 tabs 03/11/23 release tamsulosin 0.4 mg capsule 0.4 mg PO DAILY 90 days #90 caps 06/11/23 alprazolam 0.5 mg tablet 0.5 mg PO BID PRN Anxiety 30 days 06/22/23 #60 tabs folic acid 800 mcg tablet 0.8 mg PO DAILY 30 days #30 tabs 07/30/23 bethanechol chloride 25 mg tablet 25 mg PO BID 90 days #180 tabs 09/15/23 dapagliflozin propanediol 10 mg 10 mg PO DAILY 30 days #30 tabs 10/07/23 tablet (Farxiga) pen needle, diabetic 32 gauge x #150 ea 10/07/23 (BD Gifty 2nd Gen Pen Needle) pen needle, diabetic 32 gauge x #50 ea 10/07/23 (BD Ultra-Fine Gifty Pen Needle) ezetimibe 10 mg tablet (Zetia) 10 mg PO DAILY #30 tabs 10/13/23 insulin degludec 100 unit/mL (3 10 unit (0.1 mL) subcut BEDTIME 10/21/23 mL) subcutaneous pen (Tresiba #15 mL FlexTouch U-100 insulin) lancets 28 gauge (FreeStyle #100 ea 10/21/23 Lancets) blood sugar diagnostic (FreeStyle #100 ea 10/28/23 Test strips) carvedilol 6.25 mg tablet 6.25 mg PO BID #60 tabs 11/07/23 Allergies Allergy/AdvReac Type Severity Reaction Status Date / Time AKRL Inhibitors Allergy Severe Angioedema Verified 11/04/23 11:56 dextran 40 [DEXTRAN 40] Allergy Intermediate tachycardia Verified 11/04/23 11:56 latex [LATEX] Allergy Mild BLISTERS Verified 11/04/23 11:56 lisinopril [From Zestril] Allergy Mild Unknown Verified 11/04/23 11:56 Iodinated Contrast Media Allergy Unknown UNKNOWN Verified 11/04/23 11:56 [CONTRAST,IV] Review of Systems 2 Review of Systems: all other systems are reviewed and are negative Constitutional: Reports as per HPI and Reports no additional constitutional complaints Eyes: Reports as per HPI and Reports no additional eye complaints Reports system reviewed and no additional complaints, except as documented Cardiovascular: Reports as per HPI and Reports no additional cardiovascular complaints Respiratory: Reports as per HPI and Reports no additional respiratory complaints Gastrointestinal: Reports as per HPI and Reports no additional gastrointestinal complaints Genitourinary: Reports no additional female genitourinary complaints Musculoskeletal: Reports no additional musculoskeletal complaints Skin/Breast: Reports system reviewed and no additional complaints, except as docu Psychiatric: Reports no additional psychiatric complaints Endocrine: Reports no additional endocrine complaints Hematologic/Lymphatic: Reports no additional hematologic/lymphatic complaints Allergic/Immunologic: Reports no additional allergic/immunologic complaints Reports system reviewed and no additional complaints, except as documented and Reports Abnormal speech present. 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 Streptococcal bacteremia Fracture of left humerus History of prostate cancer Acute lower gastrointestinal bleeding COVID-19 vaccine series completed Hypertension Dyslipidemia Diabetic nephropathy associated with type 2 diabetes mellitus Diabetic 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 associated with type 2 diabetes mellitus FDC (current) use of insulin Diabetes type 2, uncontrolled Varices of esophagus determined by endoscopy Esophageal varices without bleeding KOEHLER (dyspnea on exertion) Chronic fatigue Iron deficiency anemia CAD (coronary artery disease) ANUJA on CPAP Prostate cancer Spinal stenosis On beta kayy at home IBS (irritable colon syndrome) Aortic stenosis HTN (hypertension) DMII (diabetes mellitus, type 2) Polyneuropathy GERD (gastroesophageal reflux disease) Surgical History S/P infectious endocarditis H/O cataract extraction Hx of endoscopy History of colonoscopy Hx of esophagogastroduodenoscopy Hx of colonoscopy History of surgery History of transurethral resection of prostate History of surgery History of heart artery stent Family History Family History Father CVD (cardiovascular disease) Past heart attack Mother CVD (cardiovascular disease) Brain cancer Heart problem Daughter Breast cancer Sister Breast cancer Son Alive and well Family/Other Myocardial infarction Liver cancer Social History Social History Household Members: Spouse Household Members Other:: Myesha Housing: House Are you a primary child care aide to a significant other at home: No Do you presently have visiting nurse or other home services: No Alcohol intake: never Patient Tobacco Use Status: Never used Tobacco e-Cigarette/Vaping Use: Never Used Second Hand Smoke Exposure: No Advance Directives Date on File: 08/31/23 service: Yes Current occupational status: retired Cognitive needs: No Hearing needs: No Vision needs: Yes Physical Exam 2 Vital Signs: Vital Signs: Last Vital Signs Temp 97.7 F 11/09/23 16:02 Pulse 60 11/09/23 16:02 Resp 14 11/09/23 16:02 BP 103/36 L 11/09/23 16:04 Pulse Ox 100 11/09/23 14:07 O2 Del Method Room Air 11/09/23 16:02 BMI result Body Mass Index 25.7 Vital signs have been reviewed and appear to be correct. Blood pressure elevated. Heart rate normal. Respiratory rate normal. Temperature normal. Oxygen saturation normal. Appearance: Alert. Oriented X3. No acute distress. Head: Normal external exam. Normocephalic. Atraumatic. No Ochoa signs noted. No raccoon eyes noted Eyes: PERRLA. EOMI. Conjunctiva and sclera normal. Eyelids normal. ENT: TM's Normal. Pharynx normal. Uvula midline. Moist mucous membranes. No trismus noted. No drooling noted. No muffled voice noted. Neck: Normal inspection. Neck supple. FROM. No adenopathy. Thyroid Normal. No meningeal signs. No neck mass noted. CVS: Normal heart rate and rhythm. Heart sound normal. No murmurs noted. Pulses normal throughout. Respiratory: No respiratory distress. Painless inspiration. Breath sounds normal. No wheezes/rales/rhonchi noted. Chest nontender. No accessory muscle usage noted or decreased air movement noted. Abdomen: Soft and nontender. Bowel sounds normal in all 4 quadrants. No distention noted. No organomegaly noted. No visible injury noted. Back: No CVA tenderness. Full range of motion noted. Skin: Skin warm and dry. Normal skin color. Normal skin turgor. No rashes/lesions/lacerations noted. Extremities: No lower extremity edema. Extremities exhibit normal range of motion. Extremities nontender. Neuro: Oriented X 3. Cranial nerve exam: II-XII are grossly intact No motor deficit. No sensory deficit. Reflexes normal. Course Course Course Narrative: RME:?78 yo male here for eval of hematuria. states he pushes to urinate and blood/ clots discharge from the penis. denies pain. endorses urgency. denies dizziness, abd pain, N/V. recent [place] catheter use during recent ED visit. labs, UA ordered Full HPI, ROS and PE to be performed by the primary ED provider. 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 Nuno who recommended not to pass catheter and observe him clinically with serial CBCs. At this point no indication for blood transfusion since patient is asymptomatic. Just empirical antibiotic. Acute on chronic renal insufficiency with hyper kalemia with no EKG changes, patient received 10 mg of Lokelma, and 5 units of insulin IV. Time: 19:13 Medications Administered Discontinued Medications Generic Name Dose Route Start Last Admin Trade Name Freq PRN Reason Stop Dose Admin Insulin Human Regular 5 unit 11/09/23 16:31 11/09/23 17:42 Insulin Regular, Human 100 Unit/Ml 3 Ml Vial IVPUSH 11/09/23 16:32 5 unit ONCE ONE Administration Lidocaine HCl 10 ml 11/09/23 16:47 11/09/23 17:47 Lidocaine Hcl 2 % Urojet 10 Ml Jel.Pf.Nafisa TOPICAL 11/09/23 16:48 10 ml ONCE ONE Administration Sodium Zirconium Cyclosilicate 10 gm 11/09/23 16:31 11/09/23 17:42 Sodium Zirconium Cyclosilicate 10 Gm Powd.Pack PO 11/09/23 16:32 10 gm ONCE ONE Administration Medical Decision Making Differential Diagnosis Differential Diagnoses: The differential diagnosis associated with the presentation includes ( anemia, urinary retention, UTI, electrolyte abnormality, acute on chronic EMMANUEL.) Admission/Observation Consideration of admission/observation: Escalation of care including admission/observation considered Consult Healthcare Provider Management of the patient was discussed with: Hospitalist ( Dr. Calabrese) and Retirement Plan Specialist ( Dr. Nuno) Lab Data MDM Lab Attestation statement: I reviewed the patient's lab results. 11/09/23 14:31 11/09/23 14:31 Labs: Lab Results 11/09/23 11/09/23 Range/Units 14:31 16:06 WBC 4.8 (4.8-10.8) X10*3/uL RBC 2.57 L (4.60-5.80) X10*6/uL Hgb 7.5 L (14.0-18.0) g/dl Hct 23.9 L (42.0-52.0) % MCV 93.0 (80.0-98.0) fL MCH 29.2 (27.0-33.0) pg MCHC 31.4 (31.0-36.0) g/dl RDW 16.5 H (11.0-16.0) % Plt Count 83 L (160-400) X10*3/uL MPV 11.3 (9.4-12.4) fL Immature Gran % (Auto) 1.1 H (0.0-0.4) % Neut % (Auto) 78.1 H (45-73) % Lymph % (Auto) 7.6 L (20-40) % [place] % (Auto) 12.2 H (2-11) % Eos % (Auto) 0.4 (0-4) % Baso % (Auto) 0.6 (0-2) % Lymph # (Auto) 0.4 L (1.2-4.9) X10*3/uL [place] # (Auto) 0.6 (0.1-1.2) X10*3/uL Eos # (Auto) 0.0 (0.0-0.4) X10*3/uL Baso # (Auto) 0.0 (0.0-0.2) X10*3/uL Abs Immat Gran (auto) 0.05 H (0.00-0.03) X10*3/uL Absolute Neuts (auto) 3.7 (2.0-8.3) x10*3/uL Absolute Nucleated RBC 0.000 (0.0-0.012) X10*3/uL Nucleated RBC % (auto) 0.0 (0.0-0.2) /100WBC PT 14.0 H (11.1-13.3) SEC INR 1.2 H (0.9-1.1) APTT 27.3 (26.0-36.8) SEC Sodium 134 L (135-145) mmol/L Potassium 6.1 H* D (3.3-5.1) mmol/L Chloride 108 (96-108) mmol/L Carbon Dioxide 19 L (22-29) mmol/L Anion Gap 13 (12-20) BUN 90 H (9-16) mg/dL Creatinine 2.06 H (0.5-1.4) mg/dL Estim Creat Clear Calc 28.6 Estimated GFR 31 Random Glucose 417 H* (60-115) mg/dL Calcium 7.9 L (8.4-10.2) mg/dL Magnesium 2.5 (1.6-2.6) mg/dL Total Bilirubin 0.6 (0.0-1.0) mg/dL AST 31 (5-37) U/L ALT 37 (0-40) U/L Alkaline Phosphatase 126 H (39-117) U/L Total Protein 5.5 L (6.5-8.0) g/dL Albumin 2.9 L (3.5-5.0) g/dL Beta-Hydroxybutyrate 0.12 (0.02-0.27) mmol/L Urine Color RED Urine Appearance Turbid Urine pH 6.5 (5.0-9.0) Ur Specific [place] 1.010 (1.005-1.025) Urine Protein 300 (3+) H (Neg-Trace) mg/dL Urine Glucose (UA) See Note (Negative) mg/dL Urine Ketones See Note (Negative) mg/dL Urine Blood Large (3+) H (Negative) Urine Nitrite See Note (Negative) Ur Leukocyte Esterase Moderate (2+) H (Negative) Urine RBC >20 H (0-2) /HPF Urine WBC 21-50 (0-5) /HPF Ur Squamous Epith Cells 0-2 (0-2) /HPF Urine Bacteria 1+ (None Seen) Hyaline Casts 0-2 (0-2) /LPF Independent Interpretation I performed an independent interpretation of an: EKG ( AV dual paced EKG at rate of 60. no peaked T-wave.) Prescription Management I considered prescription management with: Other ( CKD, hyperglycemia.) Discharge Plan Discharge Clinical Impression: Gross hematuria, Acute hyperkalemia, Hyperglycemia Patient Disposition: Admitted As Inpatient Prescriptions: No Action (DME) FreeStyle Marleni 14 Day [place] Misc See Rx Instructions .Route Qty: 1 0RF Rx Instructions: As directed (DME) FreeStyle Marleni 14 Day Sensor Kit See Rx Instructions .Route Qty: 2 2RF Rx Instructions: As directed (DME) blood-glucose meter [FreeStyle Lite Meter] Kit See Rx Instructions .Route Qty: 1 0RF Rx Instructions: As directed tamsulosin 0.4 mg capsule 0.4 mg PO DAILY 90 Days Qty: 90 1RF alprazolam 0.5 mg tablet 0.5 mg PO BID PRN (Reason: Anxiety) 30 Days Qty: 60 2RF folic acid 800 mcg tablet 0.8 mg PO DAILY 30 Days Qty: 30 3RF bethanechol chloride 25 mg tablet 25 mg PO BID 90 Days Qty: 180 1RF (DME) pen needle, diabetic [BD Ultra-Fine Gifty Pen Needle] 32 gauge x 5/32 needle See Rx Instructions .ROUTE .MEDSUPPLY Qty: 50 3RF Rx Instructions: As directed (DME) pen needle, diabetic [BD Gifty 2nd Gen Pen Needle] 32 gauge x 5/32 needle See Rx Instructions .MEDSUPPLY Qty: 150 5RF Rx Instructions: 4 times a day Farxiga 10 mg tablet 10 mg PO DAILY 30 Days Qty: 30 3RF ezetimibe [Zetia] 10 mg tablet 10 mg PO DAILY Qty: 30 3RF (DME) FreeStyle Test Strip See Rx Instructions .Route Qty: 100 3RF Rx Instructions: three times per day cyanocobalamin (vitamin B-12) 500 mcg Tablet 1,000 mcg PO BEDTIME bumetanide 1 mg tablet 1 mg PO DAILY spironolactone 100 mg tablet 100 mg PO DAILY Protocol: Hold for SBP< HOLD for SBP < : 120 gabapentin 400 mg capsule 400 mg PO BID insulin aspart U-100 [Novolog FlexPen U-100 Insulin] 100 unit/mL (3 mL) insulin pen 8 unit subcut TID Rx Instructions: see directions per sliding scale subcutaneously 3 times a day; Blood sugar 70-130- take 0 units Blood sugar 131-180- take 4 units Blood sugar 181-240- take 8 units Blood sugar 241-to 300- take 10 units Blood sugar 301-to 350- take 12 units Blood sugar 351-400- take 16 units Blood sugar over 400 please call PCP carvedilol 6.25 mg Tablet 6.25 mg PO BID Qty: 60 0RF Protocol: Hold for SBP/HR < HOLD for SBP < : 90 HOLD for HR < : 60 (DME) lancets [FreeStyle Lancets] 28 gauge misc See Rx Instructions .Route Qty: 100 6RF Rx Instructions: As directed three times per day insulin degludec [Tresiba FlexTouch U-100] 100 unit/mL (3 mL) insulin pen 10 unit subcut BEDTIME Qty: 15 0RF (DME) blood pressure test kit-large Kit See Rx Instructions .Route Qty: 1 0RF Rx Instructions: As directed finasteride [Proscar] 5 mg tablet 5 mg PO DAILY 90 Days Qty: 90 1RF carvedilol 6.25 mg tablet 6.25 mg PO BID 30 Days Qty: 60 3RF Rx Instructions: must administer with a meal/food pantoprazole 40 mg tablet,delayed release (DR/EC) 40 mg PO DAILY Qty: 30 3RF atorvastatin 80 mg tablet 80 mg PO BEDTIME 30 Days Qty: 30 3RF aspirin [Adult Aspirin Regimen] 81 mg tablet,delayed release (DR/EC) 81 mg PO DAILY 30 Days Qty: 30 3RF Hold Instructions: hold aspirin until 09/01 ferrous sulfate 325 mg (65 mg iron) tablet,delayed release (DR/EC) 325 mg PO DAILY
[2023-11-09 14:37] LABS: MANUAL DIFF FLAG NO
[2023-11-09 14:38] LABS: Basophils Percent Auto 0.6 % (0-2); Eosinophils Percent Auto 0.4 % (0-4); Hematocrit 23.9 % (42.0-52.0); Hemoglobin 7.5 g/dl (14.0-18.0); Imm Gran Abs Auto 0.05 X10*3/uL (0.00-0.03); Imm Gran Pct Auto 1.1 % (0.0-0.4); Lymphocytes Absolute Auto 0.4 X10*3/uL (1.2-4.9); Lymphocytes Percent Auto 7.6 % (20-40); Mean Corpuscular HGB Conc 31.4 g/dl (31.0-36.0); Mean Corpuscular Hemoglobin 29.2 pg (27.0-33.0); Mean Platelet Volume 11.3 fL (9.4-12.4); Monocytes Absolute Auto 0.6 X10*3/uL (0.1-1.2); Monocytes Percent Auto 12.2 % (2-11); Neutrophils Absolute Auto 3.7 x10*3/uL (2.0-8.3); Neutrophils Percent Auto 78.1 % (45-73); Red Blood Count 2.57 X10*6/uL (4.60-5.80); Red Cell Distribution Width 16.5 % (11.0-16.0); White Blood Count 4.8 X10*3/uL (4.8-10.8)
[2023-11-09 14:39] LABS: Platelet Count 83 X10*3/uL (160-400)
[2023-11-09 14:47] LABS: INTERNATIONAL NORM RATIO 1.2 (0.9-1.1)
[2023-11-09 14:49] LABS: Partial Thromboplastin Time 27.3 SEC (26.0-36.8)
[2023-11-09 15:01] LABS: Anion Gap 13 (12-20)
--- NOTE | 2023-11-09 15:07 | PC.NURSE ---
pt awaiting bed assignment, charge aware of lab results, pt continues to feel weak
[2023-11-09 15:12] LABS: Alanine Aminotransferase 37 U/L (0-40); Albumin Level 2.9 g/dL (3.5-5.0); Alkaline Phosphatase 126 U/L (39-117); Aspartate Amino Transferase 31 U/L (5-37); Bilirubin Total 0.6 mg/dL (0.0-1.0); Blood Urea Nitrogen 90 mg/dL (9-16); Calcium 7.9 mg/dL (8.4-10.2); Carbon Dioxide 19 mmol/L (22-29); Chloride 108 mmol/L (96-108); Creatinine Clr Calc Pharmacy 28.6; Estimated Glomerular Filt Rate 31; Glucose Random 417 mg/dL (60-115); Potassium 6.1 mmol/L (3.3-5.1); Sodium 134 mmol/L (135-145); Total Protein 5.5 g/dL (6.5-8.0)
[2023-11-09 15:38] LABS: Magnesium 2.5 mg/dL (1.6-2.6)
[2023-11-09 16:02] VITALS: BP 109/37; PULSE 60; RESP 14; TEMP 36.5
[2023-11-09 16:04] VITALS: BP 103/36
[2023-11-09 16:20] LABS: Appearance Urine Turbid; Color Urine RED; Leukocyte Esterase Urine Moderate (2+) (Negative); PH 6.5 (5.0-9.0); UMIC TRIGGER UACC YES; Urine Blood Large (3+) (Negative); Urine Protein 300 (3+) mg/dL (Neg-Trace)
--- NOTE | 2023-11-09 16:33 | ECG_ITS ---
Test Reason : HEMATURIA Blood Pressure : / mmHG Vent. Rate : 060 BPM Atrial Rate : 060 BPM P-R Int : 212 ms QRS Dur : 104 ms QT Int : 444 ms P-R-T Axes : 000 -47 113 degrees QTc Int : 444 ms AV dual-paced rhythm with prolonged AV conduction Abnormal ECG When compared with ECG of 04-NOV-2023 12:42, No significant changes seen Referred By: Jesse Palm Electronically Signed By:TRAY CARLSON
[2023-11-09 17:07] LABS: Bacteria Urine 1+ (None Seen); Hyaline Casts Urine 0-2 /LPF (0-2); RBC Urine >20 /HPF (0-2); Squamous Epithelial Cell Urine 0-2 /HPF (0-2); UACC Culture Trigger YES; WBC Urine 21-50 /HPF (0-5)
[2023-11-09] MEDS: Insulin Regular, Human 100 UNIT/ML 3 ML VIAL IVPUSH (17:42)
[2023-11-09] MEDS: Sodium Zirconium Cyclosilicate 10 GM POWD.PACK PO (17:42)
[2023-11-09] MEDS: Lidocaine HCl 2 % Urojet 10 ML JEL.PF.APP TOPICAL ×2 (17:47→19:22)
[2023-11-09 18:34] LABS: Beta-Hydroxybutyrate 0.12 mmol/L (0.02-0.27)
[2023-11-09 19:18] LABS: Glucose, Whole Blood 134 mg/dL (60-115)
--- NOTE | 2023-11-09 19:21 | PC.NURSE ---
multiple attempts made at inserting [address] sam. assisted and was unable to insert Sam. Uro consulted. per MD hold 3 way for now
[2023-11-09 19:52] VITALS: BP 108/53; PULSE 60; RESP 18; TEMP 37.1; O2SAT 96
[2023-11-09] MEDS: Calcium Gluconate/NaCl,Iso-Osm 2 GM/100 ML PLAST..BAG IV (19:53)
--- NOTE | 2023-11-09 19:57 | PC.NURSE ---
this rn assumed care of pt. pt a&ox4, respirations even and unlabored. provider at bedside discussing pt care. pt denies need to urinate at this time. Pt medicated per nov.
--- NOTE | 2023-11-09 20:01 | P.HPHOSP_ITS ---
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 Pt reports his urine was pink this morning and then began passing sunil clots later in the afternoon. He does take a baby aspirin, but no anticoagulation. No prior history of similar symptoms. Denies dysuria, increased urinary frequency, urgency, decreased output, n/v, abd pain, flank pain. On arrival, BP soft (chronic) but no hypotension, vitals otherwise stable. No leukocytosis. H/H 7.5/23.9%. Creatinine baseline, BUN elevated at 90. Sodium 134, potassium 6.1, CO2 19. Glucose 417. Beta hydroxybutyrate 0.12. Urinalysis significant for 3+ blood, moderate leukocytes, positive urinary sediment, 1+ bacteria. EKG shows AV dual paced rhythm with prolonged AV leeanne conduction, rate 60. In the ED, given 5 units regular insulin, 10 g low,, and 2 g calcium gluconate. Multiple attempts made to place Sam catheter for CBI but were unable to do so. Per Urology, admit to medicine and will place Sam catheter a.m. <WILLIE English - Last Filed: 11/09/23 20:36> Review of Systems 2 Review of Systems: General: No fevers, malaise, unintentional weight loss HEENT: No blurred vision, diplopia. No sore throat, nasal congestion, rhinorrhea, sinus pain, ear pain Cardiovascular: No chest pain, palpitations, or leg edema Respiratory: No shortness of breath, wheezing, cough GI: No abdominal pain, nausea, vomiting, diarrhea, constipation, melena, hematochezia : +hematuria. 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 Streptococcal bacteremia Fracture of left humerus History of prostate cancer Acute lower gastrointestinal bleeding COVID-19 vaccine series completed Hypertension Dyslipidemia Diabetic nephropathy associated with type 2 diabetes mellitus Diabetic 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 associated with type 2 diabetes mellitus group home (current) use of insulin Diabetes type 2, uncontrolled Varices of esophagus determined by endoscopy Esophageal varices without bleeding KOEHLER (dyspnea on exertion) Chronic fatigue Iron deficiency anemia CAD (coronary artery disease) ANUJA on CPAP Prostate cancer Spinal stenosis On beta kayy at home IBS (irritable colon syndrome) Aortic stenosis HTN (hypertension) DMII (diabetes mellitus, type 2) Polyneuropathy GERD (gastroesophageal reflux disease) <WILLIE English - Last Filed: 11/09/23 20:36> Family History: Family History Father CVD (cardiovascular disease) Past heart attack Mother CVD (cardiovascular disease) Brain cancer Heart problem Daughter Breast cancer Sister Breast cancer Son Alive and well Family/Other Myocardial infarction Liver cancer <WILLIE English - Last Filed: 11/09/23 20:36> Surgical History: Surgical History S/P infectious endocarditis H/O cataract extraction Hx of endoscopy History of colonoscopy Hx of esophagogastroduodenoscopy Hx of colonoscopy History of surgery History of transurethral resection of prostate History of surgery History of heart artery stent <WILLIE English - Last Filed: 11/09/23 20:36> Social History: Social History Household Members: Spouse Household Members Other:: Myesha Housing: House Are you a primary critical care rn to a significant other at home: No Do you presently have visiting nurse or other home services: No Alcohol intake: never Patient Tobacco Use Status: Never used Tobacco Smoked in Last 30 Days: No e-Cigarette/Vaping Use: Never Used Second Hand Smoke Exposure: No Use of substances other than those prescribed or required for medical reasons: No Advance Directives: Yes Advance Directives on File: Yes Advance Directives Date on File: 08/31/23 service: Yes Current occupational status: retired Cognitive needs: No Hearing needs: No Vision needs: Yes <WILLIE English - Last Filed: 11/09/23 20:36> Meds Allergies/Adverse reactions: Allergies Allergy/AdvReac Type Severity Reaction Status Date / Time KARL Inhibitors Allergy Severe Angioedema Verified 11/04/23 11:56 dextran 40 [DEXTRAN 40] Allergy Intermediate tachycardia Verified 11/04/23 11:56 latex [LATEX] Allergy Mild BLISTERS Verified 11/04/23 11:56 lisinopril [From Zestril] Allergy Mild Unknown Verified 11/04/23 11:56 Iodinated Contrast Media Allergy Unknown UNKNOWN Verified 11/04/23 11:56 [CONTRAST,IV] <WILLIE English - Last Filed: 11/09/23 20:36> Active Medications: Current Medications Calcium Gluconate (Calcium Gluconate) 2 gm in 100 mls @ 50 mls/hr IV ONCE ONE Stop: 11/09/23 21:14 Last Admin: 11/09/23 19:53 Dose: 50 mls/hr <WILLIE English - Last Filed: 11/09/23 20:36> Home medications: Home Medications Medication Instructions Recorded Confirmed Last Taken Type cyanocobalamin (vitamin B-12) 500 1,000 mcg PO BEDTIME 12/29/22 11/09/23 11/08/23 History mcg tablet ferrous sulfate 325 mg (65 mg 325 mg PO DAILY 04/29/23 11/09/23 11/08/23 History iron) tablet,delayed release bumetanide 1 mg tablet 1 mg PO DAILY 08/25/23 11/09/23 11/08/23 History gabapentin 400 mg capsule 400 mg PO BID 08/25/23 11/09/23 11/08/23 History spironolactone 100 mg tablet 100 mg PO DAILY 08/25/23 11/09/23 11/08/23 History insulin aspart U-100 100 unit/mL 8 unit subcut TID 11/04/23 11/09/23 11/08/23 History (3 mL) subcutaneous pen (Novolog FlexPen U-100 Insulin aspart) dulaglutide 0.75 mg/0.5 mL 0.75 mg subcut MO 11/09/23 11/09/23 11/02/23 History subcutaneous pen injector (Trulicity) <WILLIE English - Last Filed: 11/09/23 20:36> Physical Exam 2 Vital Signs and Narrative: Vital Signs: Last Vital Signs Temp 98.7 F 11/09/23 19:52 Pulse 60 11/09/23 19:52 Resp 18 11/09/23 19:52 BP 108/53 L 11/09/23 19:52 Pulse Ox 96 11/09/23 19:52 O2 Del Method Room Air 11/09/23 19:52 BMI result Body Mass Index 25.7 <WILLIE English - Last Filed: 11/09/23 20:36> Constitutional - Awake and Alert, No apparent distress Eyes - PERRLA, EOMI \ Head- well healing scalp lacerations with [address] Cardiovascular - S1S2, RRR, No edema Respiratory - Normal lung expansion, Normal respiratory effort, No respiratory distress, CTA bilaterally Gastrointestinal - NT / ND; +BS; No rebound or guarding Extremities - no calf tenderness bilaterally, no swelling Skin - Warm/Dry Neurological - Alert & oriented x3 Psychological - Appropriate affect <WILLIE English - Last Filed: 11/09/23 20:36> Results Labs CBC and Chem 7: 11/09/23 14:31 11/09/23 14:31 <WILLIE English - Last Filed: 11/09/23 20:36> Labs: Laboratory Results - last 24 hr 11/09/23 11/09/23 11/09/23 14:31 16:06 19:09 MCV 93.0 MCH 29.2 MCHC 31.4 RDW 16.5 H Plt Count 83 L MPV 11.3 Immature Gran % (Auto) 1.1 H Neut % (Auto) 78.1 H Lymph % (Auto) 7.6 L Mingo % (Auto) 12.2 H Eos % (Auto) 0.4 Baso % (Auto) 0.6 Lymph # (Auto) 0.4 L Mingo # (Auto) 0.6 Eos # (Auto) 0.0 Baso # (Auto) 0.0 Abs Immat Gran (auto) 0.05 H Absolute Neuts (auto) 3.7 Absolute Nucleated RBC 0.000 Nucleated RBC % (auto) 0.0 PT 14.0 H INR 1.2 H APTT 27.3 Anion Gap 13 Estim Creat Clear Calc 28.6 Estimated GFR 31 POC Glucose 134 H Random Glucose 417 H* Calcium 7.9 L Magnesium 2.5 Total Bilirubin 0.6 AST 31 ALT 37 Alkaline Phosphatase 126 H Total Protein 5.5 L Albumin 2.9 L Beta-Hydroxybutyrate 0.12 Urine Color RED Urine Appearance Turbid Urine pH 6.5 Ur Specific Mcintyre 1.010 Urine Protein 300 (3+) H Urine Glucose (UA) See Note Urine Ketones See Note Urine Blood Large (3+) H Urine Nitrite See Note Ur Leukocyte Esterase Moderate (2+) H Urine RBC >20 H Urine WBC 21-50 Ur Squamous Epith Cells 0-2 Urine Bacteria 1+ Hyaline Casts 0-2 <WILLIE English - Last Filed: 11/09/23 20:36> Assessment and Plan (1) Acute hyperkalemia: Status: Acute <WILLIE English - Last Filed: 11/09/23 20:36> (2) Gross hematuria: Status: Acute <WILLIE English - Last Filed: 11/09/23 20:36> 78-year-old male with history of hepatic cirrhosis complicated by esophageal varices and ascites, insulin-dependent type 2 diabetes, diabetic 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, hypertension, hyperlipidemia, history of prostate cancer, ANUJA on CPAP, chronic iron deficiency anemia, s/p bioprosthetic TAVR, CAD on DAPT, h/o endocarditis wtih PICC line in place on IV ceftriaxone and amoxicillin, s/p pacemaker admitted for management of gross hematuria #Gross hematuria -H/H slightly decreased from baseline at 7.5/23.9% -Unable to place sam for CBI. Per urology will place in am -Urology consult -follow h/h -hold aspirin #Acute UTI -UA with 3+ blood, 2+ leukocytes, positive urinary sediment, 1+ bacteria -IV ceftriaxone (initiated 11/09) -follow CBC, cultures # acute hyperkalemia -given 5 units regular insulin, 10 g Lokelma, 2 g calcium gluconate in ED -hold spironolactone -follow electrolytes # hepatic cirrhosis complicated by esophageal varices, ascites -hold spironolactone due to above -low-sodium diet -GI consult as above # insulin-dependent type 2 diabetes -dose adjusted basal insulin -POC glucose, diabetic diet, Humalog on sliding scale -continue basal insulin # CAD/HLD -hold ASA due to above last cardiac cath with PCI 01/2022 -continue statin, bb, zetia # orthostatic hypotension -continue midodrine p.r.n. # BPH -continue tamsulosin, finasteride # diabetic 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 -continue gabapentin # ANUJA on CPAP -CPAP bedtime #Acute endocarditis with H/O strep bacteremia 01/2023 -Follows with [facility] -continue amoxicillin 500mg BID indefinitely for chronic suppression #Scalp laceration -8 jignesh placed 10/31, well healing DVT prophylaxis-compression Full code Patient requires inpatient stay at least 2 midnights for further management of gross hematuria requiring continuous bladder irrigation and expert consultation as well as close monitoring of blood counts as well as monitoring of electrolyte levels <WILLIE English - Last Filed: 11/09/23 20:36> 78-year-old male with history of hepatic cirrhosis complicated by esophageal varices and ascites, insulin-dependent type 2 diabetes, diabetic 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, hypertension, hyperlipidemia, history of prostate cancer, ANUJA on CPAP, chronic iron deficiency anemia, s/p bioprosthetic TAVR, CAD on DAPT, h/o endocarditis wtih PICC line in place on IV ceftriaxone and amoxicillin, s/p pacemaker admitted for management of gross hematuria #Gross hematuria -H/H slightly decreased from baseline at 7.5/23.9% -Unable to place sam for CBI. Per urology will place in am -Urology consult -follow h/h -hold aspirin #Acute UTI -UA with 3+ blood, 2+ leukocytes, positive urinary sediment, 1+ bacteria -IV ceftriaxone (initiated 11/09) -follow CBC, cultures # acute hyperkalemia -given 5 units regular insulin, 10 g Lokelma, 2 g calcium gluconate in ED -hold spironolactone -follow electrolytes # hepatic cirrhosis complicated by esophageal varices, ascites -hold spironolactone due to above -low-sodium diet # insulin-dependent type 2 diabetes -dose adjusted basal insulin -POC glucose, diabetic diet, Humalog on sliding scale -continue basal insulin # CAD/HLD -hold ASA due to above last cardiac cath with PCI 01/2022 -continue statin, bb, zetia # orthostatic hypotension -continue midodrine p.r.n. # BPH -continue tamsulosin, finasteride # diabetic 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 -continue gabapentin # ANUJA on CPAP -CPAP bedtime #Acute endocarditis with H/O strep bacteremia 01/2023 -Follows with [facility] -continue amoxicillin 500mg BID indefinitely for chronic suppression #Scalp laceration -8 jignesh placed 10/31, well healing DVT prophylaxis-compression Full code Patient requires inpatient stay at least 2 midnights for further management of gross hematuria requiring continuous bladder irrigation and expert consultation as well as close monitoring of blood counts as well as monitoring of electrolyte levels <Jae Calabrese MD - Last Filed: 11/09/23 21:05> Quality Stroke Does the patient have a stroke diagnosis?: No <WILLIE English - Last Filed: 11/09/23 20:36> VTE Prior VTE?: No <WILLIE English - Last Filed: 11/09/23 20:36> VTE Risk Level:: Medical - moderate - high <WILLIE English - Last Filed: 11/09/23 20:36> VTE Device Contraindication: N/A - Device Ordered <WILLIE English - Last Filed: 11/09/23 20:36> VTE Drug Contraindication: Treatment Not Indicated <WILLIE English - Last Filed: 11/09/23 20:36>
--- NOTE | 2023-11-09 20:15 | PHA.MEDREC ---
Pharmacy Consult ? Medication Reconciliation Pharmacy has completed the medication reconciliation.Confirmed medication with patient and through claim history.
--- NOTE | 2023-11-09 20:21 | PC.NURSE ---
pt set up with sandwich and drink at this time.
[2023-11-09 20:45] LABS: Venous Blood Gas Refer to POC result
[2023-11-09 20:46] LABS: VBG HCO3 21 mmol/L (22-26); VBG pCO2 38 mmHg; VBG pH 7.34 (7.32-7.43); VBG pO2 47 mmHg
[2023-11-09 20:48] LABS: Glucose, Whole Blood 122 mg/dL (60-115)
[2023-11-09 20:55] LABS: Osmolality, Serum 324 mosm/kg (281-305)
[2023-11-09] MEDS: cefTRIAXone sodium 1 GM in 0.9 % Sodium Chloride 50 ML IV (21:05)
[2023-11-09] MEDS: Cyanocobalamin (Vitamin B-12) 1,000 MCG TABLET 1000 MCG PO (21:32)
[2023-11-09] MEDS: Insulin Glargine,Hum.rec.anlog 100 UNIT/ML 10 ML VIAL 6 UNIT SUBCUT (21:32)
[2023-11-09] MEDS: Bethanechol Chloride 25 MG TABLET PO (21:32)
[2023-11-09] MEDS: Atorvastatin Calcium 80 MG TABLET PO (21:32)
[2023-11-09] MEDS: Amoxicillin 500 MG CAPSULE PO (21:32)
[2023-11-09] MEDS: Gabapentin 400 MG CAPSULE PO (21:32)
--- NOTE | 2023-11-09 21:34 | PC.NURSE ---
pt medicated per mar, pt tolerated well with water.
--- NOTE | 2023-11-09 21:47 | MHC.EDTECH ---
Patient bed pad changed and repositioned
--- NOTE | 2023-11-09 22:18 | PC.NURSE ---
pt noted to have 8 jignesh in the right sided scalp, Mallory TAPIA aware.
[2023-11-09 23:11] VITALS: BP 121/53; PULSE 60; RESP 18; TEMP 36.5; O2SAT 100
[2023-11-09 23:30] VITALS: BMI 26.0
[2023-11-09] MEDS: 0.9 % Sodium Chloride Flush 3 ML SYRINGE IVFLUSH (23:31)
[2023-11-10] VITALS (8 sets, daily range): BP systolic 97–130; BP diastolic 45–60; PULSE 60–96; RESP 17–20; TEMP 36.3–36.8; O2SAT 93–99
[2023-11-10 05:39] LABS: MANUAL DIFF FLAG NO
[2023-11-10] MEDS: Omeprazole 20 MG CAPSULE.DR PO (05:43)
[2023-11-10 05:47] LABS: Basophils Percent Auto 0.9 % (0-2); Eosinophils Absolute Auto 0.1 X10*3/uL (0.0-0.4); Hematocrit 22.2 % (42.0-52.0); Imm Gran Abs Auto 0.01 X10*3/uL (0.00-0.03); Imm Gran Pct Auto 0.3 % (0.0-0.4); Lymphocytes Absolute Auto 0.5 X10*3/uL (1.2-4.9); Lymphocytes Percent Auto 14.6 % (20-40); Mean Corpuscular HGB Conc 30.6 g/dl (31.0-36.0); Mean Corpuscular Hemoglobin 28.8 pg (27.0-33.0); Mean Corpuscular Volume 94.1 fL (80.0-98.0); Mean Platelet Volume 11.7 fL (9.4-12.4); Monocytes Absolute Auto 0.6 X10*3/uL (0.1-1.2); Neutrophils Absolute Auto 2.3 x10*3/uL (2.0-8.3); Neutrophils Percent Auto 66.2 % (45-73); Red Blood Count 2.36 X10*6/uL (4.60-5.80); Red Cell Distribution Width 16.7 % (11.0-16.0); White Blood Count 3.5 X10*3/uL (4.8-10.8)
[2023-11-10 05:48] LABS: Platelet Count 84 X10*3/uL (160-400)
[2023-11-10 05:53] LABS: Hemoglobin 6.8 g/dl (14.0-18.0)
[2023-11-10 06:02] LABS: Anion Gap 11 (12-20); Blood Urea Nitrogen 81 mg/dL (9-16); Calcium 8.1 mg/dL (8.4-10.2); Carbon Dioxide 20 mmol/L (22-29); Chloride 114 mmol/L (96-108); Creatinine Clr Calc Pharmacy 35.9; Estimated Glomerular Filt Rate 41; Glucose Random 166 mg/dL (60-115); Potassium 5.1 mmol/L (3.3-5.1); Sodium 140 mmol/L (135-145)
[2023-11-10 07:40] LABS: Glucose, Whole Blood 146 mg/dL (60-115)
[2023-11-10] MEDS: Amoxicillin 500 MG CAPSULE PO ×2 (09:22→20:28)
[2023-11-10] MEDS: Ezetimibe 10 MG TABLET PO (09:22)
[2023-11-10] MEDS: Finasteride 5 MG TABLET PO (09:22)
[2023-11-10] MEDS: Tamsulosin HCL 0.4 MG CAPSULE PO (09:23)
[2023-11-10] MEDS: Bethanechol Chloride 25 MG TABLET PO ×2 (09:23→20:28)
[2023-11-10] MEDS: Ferrous Sulfate 324 MG TABLET.DR PO (09:23)
[2023-11-10] MEDS: Gabapentin 400 MG CAPSULE PO ×2 (09:23→20:28)
--- NOTE | 2023-11-10 10:27 | MHC.CM.PN ---
Addendum entered by Lupe Hernandez 11/10/23 13:23: PT IS BEING FOLLOWED FOR SOC BY [facility] PRECIAD[facility]. 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 PT HAS [facility] SERVICES ([employer], [employer] AND IS CURRENTLY WORKING ON [employer] H[employer]) PT IS OPEN TO [facility] IF REC., PT CHOOSES [facility] SHOULD HE NEED IT. + HCP ON FILE PCP LEI TAPIA. DP: HOME WITH SERVICES IF NEEDED. SISTER LIVIER WILL TRANSPORT ([phone]) CM WILL CONTINUE TO FOLLOW FOR DC PLAN/NEEDS.
--- NOTE | 2023-11-10 11:12 | HO.PM.IMPN ---
Subjective Subjective Date of Service: 11/10/23 Interval History: Being followed for hematuria and anemia As per patient urine is tea-colored, not passing clots denies abdominal pain, no fevers, no chills, no lightheadedness, no dizziness, is discouraged for recurrent hospitalization was recently discharged last week after being treated for anemia. Review of Systems All other system reviewed and negative Physical Exam Vital Signs: Vital Signs: Last Vital Signs Temp 97.9 F 11/10/23 10:52 Pulse 60 11/10/23 10:52 Resp 18 11/10/23 10:52 BP 109/53 L 11/10/23 10:52 Pulse Ox 98 11/10/23 10:52 O2 Del Method Room Air 11/10/23 10:52 BMI result Body Mass Index 26.0 Const: Other: General awake alert x3, resting comfortably in no acute distress. Neck supple no JVD. CVS regular rate rhythm, Respiratory lungs clear to auscultation, no respiratory distress, no wheeze, no rhonchi. Gastrointestinal abdomen soft, non tender, bowel sounds audible, no guarding , no rigidity. Extremities no edema. Neuro non focal Skin no rash Psych appropriate affect Objective Data Active Medications Acetaminophen (Acetaminophen 325 Mg Tablet) 650 mg PO Q6H PRN PRN Reason: Pain, Mild (Pain Scale 1-3) Alprazolam (Alprazolam 0.5 Mg Tablet) 0.5 mg PO BID PRN PRN Reason: Anxiety Amoxicillin (Amoxicillin 500 Mg Capsule) 500 mg PO Q12H [facility] Last Admin: 11/10/23 09:22 Dose: 500 mg Documented By: PABLO Atorvastatin Calcium (Atorvastatin Calcium 80 Mg Tablet) 80 mg PO BEDTIME [facility] Last Admin: 11/09/23 21:32 Dose: 80 mg Documented By: MARYJO Bethanechol Chloride (Bethanechol Chloride 25 Mg Tablet) 25 mg PO BID [facility] Last Admin: 11/10/23 09:23 Dose: 25 mg Documented By: PABLO Cyanocobalamin (Cyanocobalamin (Vitamin B-12) 1,000 Mcg Tablet) 1,000 mcg PO BEDTIME [facility] Last Admin: 11/09/23 21:32 Dose: 1,000 mcg Documented By: MARYJO Dextrose (Dextrose 50 % 25 Gm/50 Ml Syringe) 25 gm IVPUSH Q15M PRN; Protocol PRN Reason: per Hypoglycemia Standing Ord. Ezetimibe (Ezetimibe 10 Mg Tablet) 10 mg PO DAILY [facility] Last Admin: 11/10/23 09:22 Dose: 10 mg Documented By: PABLO Ferrous Sulfate (Ferrous Sulfate 324 Mg Tablet.) 324 mg PO DAILY [facility] Last Admin: 11/10/23 09:23 Dose: 324 mg Documented By: PABLO Finasteride (Finasteride 5 Mg Tablet) 5 mg PO DAILY [facility] Last Admin: 11/10/23 09:22 Dose: 5 mg Documented By: PABLO Gabapentin (Gabapentin 400 Mg Capsule) 400 mg PO BID [facility] Last Admin: 11/10/23 09:23 Dose: 400 mg Documented By: PABLO Glucose (Glucose Gel 15 Gm Gel..Gram.) 15 gm PO Q15M PRN; Protocol PRN Reason: per Hypoglycemia Standing Ord. Ceftriaxone Sodium 1 gm/ (Sodium Chloride) 50 mls @ 100 mls/hr IV Q24H [facility] Last Infusion: 11/09/23 21:35 Dose: Infused Documented By: MARYJO Insulin Glargine (Insulin Glargine,Hum.Rec.Anlog 100 Unit/Ml 10 Ml Vial) 6 unit SUBCUT BEDTIME [facility] Last Admin: 11/09/23 21:32 Dose: 6 unit Documented By: MARYJO Insulin Human Lispro (Insulin Lispro 100 Unit/Ml 3 Ml Vial) 0 unit SUBCUT QIDACHS [facility]; Protocol Last Admin: 11/10/23 07:58 Dose: Not Given Documented By: PABLO Non-Admin Reason: No Insulin Coverage Omeprazole (Omeprazole 20 Mg Capsule.) 20 mg PO DAILY@0630 [facility] Last Admin: 11/10/23 05:43 Dose: 20 mg Documented By: JAERISMelba Ondansetron HCl (Ondansetron Hcl 4 Mg/2 Ml Vial) 4 mg IVPUSH Q8H PRN PRN Reason: Nausea and Vomiting Senna (Sennosides 8.6 Mg Tablet) 17.2 mg PO BEDTIME PRN PRN Reason: Constipation Sodium Chloride (0.9 % Sodium Chloride Flush 3 Ml Syringe) 3 ml IVFLUSH QSHIFT [facility] Last Admin: 11/10/23 09:24 Dose: Not Given Documented By: PABLO Non-Admin Reason: Previously Administered Tamsulosin HCl (Tamsulosin Hcl 0.4 Mg Capsule) 0.4 mg PO DAILY [facility] Last Admin: 11/10/23 09:23 Dose: 0.4 mg Documented By: PABLO Labs 11/10/23 05:32 11/10/23 05:32 Labs: Laboratory Results - last 24 hr 11/09/23 11/09/23 11/09/23 14:31 16:06 19:09 MCV 93.0 MCH 29.2 MCHC 31.4 RDW 16.5 H Plt Count 83 L MPV 11.3 Immature Gran % (Auto) 1.1 H Neut % (Auto) 78.1 H Lymph % (Auto) 7.6 L [place] % (Auto) 12.2 H Eos % (Auto) 0.4 Baso % (Auto) 0.6 Lymph # (Auto) 0.4 L [place] # (Auto) 0.6 Eos # (Auto) 0.0 Baso # (Auto) 0.0 Abs Immat Gran (auto) 0.05 H Absolute Neuts (auto) 3.7 Absolute Nucleated RBC 0.000 Nucleated RBC % (auto) 0.0 PT 14.0 H INR 1.2 H APTT 27.3 VBG pH VBG pCO2 VBG pO2 VBG HCO3 VBG O2 Saturation VBG Base Excess Anion Gap 13 Estim Creat Clear Calc 28.6 Estimated GFR 31 POC Glucose 134 H Random Glucose 417 H* Osmolality Calcium 7.9 L Magnesium 2.5 Total Bilirubin 0.6 AST 31 ALT 37 Alkaline Phosphatase 126 H Total Protein 5.5 L Albumin 2.9 L Beta-Hydroxybutyrate 0.12 Urine Color RED Urine Appearance Turbid Urine pH 6.5 Ur Specific [place] 1.010 Urine Protein 300 (3+) H Urine Glucose (UA) See Note Urine Ketones See Note Urine Blood Large (3+) H Urine Nitrite See Note Ur Leukocyte Esterase Moderate (2+) H Urine RBC >20 H Urine WBC 21-50 Ur Squamous Epith Cells 0-2 Urine Bacteria 1+ Hyaline Casts 0-2 Blood Type Antibody Screen Crossmatch 11/09/23 11/09/23 11/09/23 20:36 20:40 20:45 MCV MCH MCHC RDW Plt Count MPV Immature Gran % (Auto) Neut % (Auto) Lymph % (Auto) [place] % (Auto) Eos % (Auto) Baso % (Auto) Lymph # (Auto) [place] # (Auto) Eos # (Auto) Baso # (Auto) Abs Immat Gran (auto) Absolute Neuts (auto) Absolute Nucleated RBC Nucleated RBC % (auto) PT INR APTT VBG pH 7.34 VBG pCO2 38 VBG pO2 47 VBG HCO3 21 L VBG O2 Saturation 68.0 VBG Base Excess -4.0 Anion Gap Estim Creat Clear Calc Estimated GFR POC Glucose 122 H Random Glucose Osmolality 324 H Calcium Magnesium Total Bilirubin AST ALT Alkaline Phosphatase Total Protein Albumin Beta-Hydroxybutyrate Urine Color Urine Appearance Urine pH Ur Specific [place] Urine Protein Urine Glucose (UA) Urine Ketones Urine Blood Urine Nitrite Ur Leukocyte Esterase Urine RBC Urine WBC Ur Squamous Epith Cells Urine Bacteria Hyaline Casts Blood Type Antibody Screen Crossmatch 11/10/23 11/10/23 11/10/23 05:32 07:08 07:27 MCV 94.1 MCH 28.8 MCHC 30.6 L RDW 16.7 H Plt Count 84 L MPV 11.7 Immature Gran % (Auto) 0.3 Neut % (Auto) 66.2 Lymph % (Auto) 14.6 L [place] % (Auto) 16.0 H Eos % (Auto) 2.0 Baso % (Auto) 0.9 Lymph # (Auto) 0.5 L [place] # (Auto) 0.6 Eos # (Auto) 0.1 Baso # (Auto) 0.0 Abs Immat Gran (auto) 0.01 Absolute Neuts (auto) 2.3 Absolute Nucleated RBC 0.000 Nucleated RBC % (auto) 0.0 PT INR APTT VBG pH VBG pCO2 VBG pO2 VBG HCO3 VBG O2 Saturation VBG Base Excess Anion Gap 11 L Estim Creat Clear Calc 35.9 Estimated GFR 41 POC Glucose 146 H Random Glucose 166 H Osmolality Calcium 8.1 L Magnesium Total Bilirubin AST ALT Alkaline Phosphatase Total Protein Albumin Beta-Hydroxybutyrate Urine Color Urine Appearance Urine pH Ur Specific [place] Urine Protein Urine Glucose (UA) Urine Ketones Urine Blood Urine Nitrite Ur Leukocyte Esterase Urine RBC Urine WBC Ur Squamous Epith Cells Urine Bacteria Hyaline Casts Blood Type A Positive Antibody Screen NEGATIVE Crossmatch See Detail Microbiology Microbiology Results: Microbiology 11/09/23 17:09 Urine Culture - Preliminary Urine clean catch - Urine izaguirre top No growth to date. Assessment and Plan (1) Acute hyperkalemia: Status: Acute (2) Gross hematuria: Status: Acute Plan 78-year-old male with history of hepatic cirrhosis complicated by esophageal varices and ascites, insulin-dependent type 2 diabetes, diabetic 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, hypertension, hyperlipidemia, history of prostate cancer, ANUJA on CPAP, chronic iron deficiency anemia, s/p bioprosthetic TAVR, CAD on DAPT, h/o endocarditis wtih PICC line in place on IV ceftriaxone and amoxicillin, s/p pacemaker admitted for management of gross hematuria #Gross hematuria -H/H dropped significantly from 7.5/23.9% to 7.3/23.9 Not passing blood clots, urine tea-colored -Unable to place sam in ED for CBI. -Urology consult pending -hold aspirin and transfuse 1 unit # acute on chronic blood-loss anemia due to hematuria transfuse 1 unit of packed RBC and follow CBC. #Acute UTI -UA with 3+ blood, 2+ leukocytes, positive urinary sediment, 1+ bacteria -IV ceftriaxone (initiated 11/09), blood cultures x2 pending urine culture no growth preliminary will DC antibiotics of urine cultures showed no growth on final report # acute hyperkalemia -s/p 5 units regular insulin, 10 g Lokelma, 2 g calcium gluconate in ED -hold spironolactone -repeat potassium normalized # hepatic cirrhosis complicated by esophageal varices, ascites and pancytopenia -hold spironolactone due to above -low-sodium diet -stable platelets no bleeding noted. # insulin-dependent type 2 diabetes -dose adjusted basal insulin -POC glucose, diabetic diet, Humalog on sliding scale -continue basal insulin # CAD/HLD -hold ASA due to above last cardiac cath with PCI 01/2022 -continue statin, bb, zetia # orthostatic hypotension -continue midodrine p.r.n. # BPH -continue tamsulosin, finasteride # diabetic 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 -continue gabapentin # ANUJA on CPAP -CPAP bedtime #Acute endocarditis with H/O strep bacteremia 01/2023 -Follows with [facility] ID -continue amoxicillin 500mg BID indefinitely for chronic suppression #Scalp laceration -8 jignesh placed 10/31, well healing # chronic kidney disease stage 3 stable DVT prophylaxis-compression boots Full code Patient requires continued inpatient hospitalization for management of gross hematuria requiring continuous bladder irrigation and expert consultation as well as close monitoring of blood counts as well as monitoring of electrolyte levels Quality Stroke Does the patient have a stroke diagnosis?: No VTE Prior VTE?: No VTE Risk Level:: Medical - moderate - high VTE Device Contraindication: N/A - Device Ordered VTE Drug Contraindication: Treatment Not Indicated
[2023-11-10 11:36] LABS: Glucose, Whole Blood 307 mg/dL (60-115)
[2023-11-10] MEDS: Insulin Lispro 100 UNIT/ML 3 ML VIAL SUBCUT ×3 (12:04→20:43)
[2023-11-10 16:36] LABS: Glucose, Whole Blood 239 mg/dL (60-115)
[2023-11-10] MEDS: 0.9 % Sodium Chloride Flush 3 ML SYRINGE IVFLUSH ×2 (17:03→20:28)
[2023-11-10] MEDS: cefTRIAXone sodium 1 GM in 0.9 % Sodium Chloride 50 ML IV (20:28)
[2023-11-10] MEDS: Atorvastatin Calcium 80 MG TABLET PO (20:28)
[2023-11-10] MEDS: Cyanocobalamin (Vitamin B-12) 1,000 MCG TABLET 1000 MCG PO (20:28)
[2023-11-10 20:56] LABS: Glucose, Whole Blood 234 mg/dL (60-115)
[2023-11-10] MEDS: Insulin Glargine,Hum.rec.anlog 100 UNIT/ML 10 ML VIAL 6 UNIT SUBCUT (21:12)
[2023-11-11] MEDS: Acetaminophen 325 MG TABLET 650 MG PO (02:40)
[2023-11-11 03:30] VITALS: BP 111/55; PULSE 60; RESP 18; TEMP 36.8; O2SAT 98
[2023-11-11] MEDS: Omeprazole 20 MG CAPSULE.DR PO (05:50)
[2023-11-11 06:55] LABS: Hematocrit 24.8 % (42.0-52.0); Hemoglobin 7.7 g/dl (14.0-18.0); Mean Corpuscular Hemoglobin 29.1 pg (27.0-33.0); Mean Corpuscular Volume 93.6 fL (80.0-98.0); Mean Platelet Volume 11.5 fL (9.4-12.4); Red Blood Count 2.65 X10*6/uL (4.60-5.80); Red Cell Distribution Width 15.9 % (11.0-16.0); White Blood Count 3.4 X10*3/uL (4.8-10.8)
[2023-11-11 06:59] LABS: Platelet Count 79 X10*3/uL (160-400)
[2023-11-11 07:55] LABS: Glucose, Whole Blood 142 mg/dL (60-115)
[2023-11-11 07:58] VITALS: BP 102/53; PULSE 60; RESP 18; TEMP 36.4; O2SAT 98
[2023-11-11] MEDS: Finasteride 5 MG TABLET PO (09:15)
[2023-11-11] MEDS: Gabapentin 400 MG CAPSULE PO (09:16)
[2023-11-11] MEDS: Ferrous Sulfate 324 MG TABLET.DR PO (09:16)
[2023-11-11] MEDS: Ezetimibe 10 MG TABLET PO (09:16)
[2023-11-11] MEDS: Tamsulosin HCL 0.4 MG CAPSULE PO (09:16)
[2023-11-11] MEDS: Amoxicillin 500 MG CAPSULE PO (09:16)
[2023-11-11] MEDS: Bethanechol Chloride 25 MG TABLET PO (09:16)
[2023-11-11] MEDS: 0.9 % Sodium Chloride Flush 3 ML SYRINGE IVFLUSH (09:20)
--- NOTE | 2023-11-11 10:29 | W.MHC.F2F ---
Service Date Service Date: 11/11/23 Encounter Date of encounter: 11/11/23 Reasons for Services Signs and symptoms assessed: Hematuria/recurrent anemia/hyperglycemia Reason for jail: diabetic teaching, medication management and GI/ assessment Homebound: Leaving the home is medically contraindicated at this time without the asist of a device and/or another person due th the listed conditions above and below. Reason homebound: weakness related to hospital stay Certification: Based on the above findings, I certify that this patient is confined to the home and needs intermittent jail care, physical therapy and/or speech therapy, or continues to need occupational therapy. The patient is under my care, and I have initiated the establishment of the plan of care. The patient will be followed by a physician who will periodically review the plan of care. Time Spent With Patient Time: Total time managing care of this patient today ____ minutes.
--- NOTE | 2023-11-11 10:30 | P.DS_ITS ---
DS: Providers Provider Date of Service: 11/11/23 Date of admission: 11/09/23 19:58 Primary care physician: Roberto Carlos Cisneros PA-C Consults: 11/09/23 19:57 Consult to Urology Routine Consulting Provider: Hernandez Nuno Reason for consultation: gross hematuria, unable to place sam 11/10/23 13:46 Consult to Wound Care Routine Reason for consultation: MASD to gluteal folds. Has provider been notified: Yes DS: Diagnosis Discharge Diagnosis (1) Acute hyperkalemia: Status: Acute (2) Gross hematuria: Status: Acute DS: Summary Hospital Course Hospital Course: Date of Service: 11/09/23 Attending physician on admission: Jae Calabrese Chief Complaint: clots in urine 78-year-old male with history of hepatic cirrhosis complicated by esophageal varices and ascites, insulin-dependent type 2 diabetes, diabetic 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, hypertension, hyperlipidemia, history of prostate cancer, ANUJA on CPAP, chronic iron deficiency anemia, CAD on DAPT, h/o endocarditis s/p bioprosthetic TAVR on terminal superintendent amoxicillin per [facility] ED, s/p pacemaker presented to the ED from home for evaluation of gross hematuria. Pt reports his urine was pink this morning and then began passing sunil clots later in the afternoon. He does take a baby aspirin, but no anticoagulation. No prior history of similar symptoms. Denies dysuria, increased urinary frequency, urgency, decreased output, n/v, abd pain, flank pain. On arrival, BP soft (chronic) but no hypotension, vitals otherwise stable. No leukocytosis. H/H 7.5/23.9%. Creatinine baseline, BUN elevated at 90. Sodium 134, potassium 6.1, CO2 19. Glucose 417. Beta hydroxybutyrate 0.12. Urinalysis significant for 3+ blood, moderate leukocytes, positive urinary sediment, 1+ bacteria. EKG shows AV dual paced rhythm with prolonged AV leeanne conduction, rate 60. In the ED, given 5 units regular insulin, 10 g low,, and 2 g calcium gluconate. Multiple attempts made to place Sam catheter for CBI but were unable to do so. Per Urology, admit to medicine and will place Sam catheter a.m. Hospital course: 78-year-old male with history of hepatic cirrhosis complicated by esophageal varices and ascites, insulin-dependent type 2 diabetes, diabetic 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, hypertension, hyperlipidemia, history of prostate cancer, ANJUA on CPAP, chronic iron deficiency anemia, s/p bioprosthetic TAVR, CAD on DAPT, h/o endocarditis wtih PICC line in place on IV ceftriaxone and amoxicillin, s/p pacemaker admitted for management of gross hematuria #Gross hematuria -H/H dropped significantly from 7.5/23.9% to 7.3/23.9 Not passing blood clots, urine tea-colored -Unable to place sam in ED for CBI. -Urology consult pending -hold aspirin and transfuse 1 unit # acute on chronic blood-loss anemia due to hematuria transfuse 1 unit of packed RBC and follow CBC. #Acute UTI -UA with 3+ blood, 2+ leukocytes, positive urinary sediment, 1+ bacteria -IV ceftriaxone (initiated 11/09), blood cultures x2 pending urine culture no growth preliminary will DC antibiotics of urine cultures showed no growth on final report # acute hyperkalemia -s/p 5 units regular insulin, 10 g Lokelma, 2 g calcium gluconate in ED -hold spironolactone -repeat potassium normalized # hepatic cirrhosis complicated by esophageal varices, ascites and pancytopenia -hold spironolactone due to above -low-sodium diet -stable platelets no bleeding noted. # insulin-dependent type 2 diabetes -dose adjusted basal insulin -POC glucose, diabetic diet, Humalog on sliding scale -continue basal insulin # CAD/HLD -hold ASA due to above last cardiac cath with PCI 01/2022 -continue statin, bb, zetia # orthostatic hypotension -continue midodrine p.r.n. # BPH -continue tamsulosin, finasteride # diabetic 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 -continue gabapentin # ANUJA on CPAP -CPAP bedtime #Acute endocarditis with H/O strep bacteremia 01/2023 -Follows with [facility] -continue amoxicillin 500mg BID indefinitely for chronic suppression #Scalp laceration -8 jignesh placed 10/31, well healing # chronic kidney disease stage 3 stable Time Attestation Discharge coordination time: Greater than 30 minutes Quality: Safe Use of Opioids Does Pt have an Active Cancer Diagnosis on the Problem List?: No Quality: Stroke Does the patient have a stroke diagnosis?: No Physical Exam Vital Signs: Vital Signs: Last Vital Signs Temp 97.6 F 11/11/23 07:58 Pulse 60 11/11/23 07:58 Resp 18 11/11/23 07:58 BP 102/53 L 11/11/23 07:58 Pulse Ox 98 11/11/23 07:58 O2 Del Method Room Air 11/11/23 07:58 BMI result Body Mass Index 26.0 Const: Other: General awake alert x3, resting comfortably in no acute distress. Neck supple no JVD. CVS regular rate rhythm, Respiratory lungs clear to auscultation, no respiratory distress, no wheeze, no rhonchi. Gastrointestinal abdomen soft, non tender, bowel sounds audible, no guarding , n o rigidity. Extremities no edema. Neuro non focal Scalp laceration well healed, sutures removed. Skin no rash Psych appropriate affect DS: Data Data Completed and Pending Completed studies during hospitalization [Text1]: Procedures Destruction of Bladder Neck, Via Natural or Artificial Opening Endoscopic (06/17/22) Extirpation of Matter from Bladder, Via Natural or Artificial Opening Endoscopic (06/17/22) Transfusion of Nonautologous Red Blood Cells into Peripheral Vein, Percutaneous Approach (11/05/23) Labs on day of discharge: Laboratory Results - last 24 hr 11/10/23 11/10/23 11/10/23 07:08 11:18 16:09 WBC RBC Hgb Hct MCV MCH MCHC RDW Plt Count MPV Absolute Nucleated RBC Nucleated RBC % (auto) POC Glucose 307 H 239 H Blood Type A Positive Antibody Screen NEGATIVE Crossmatch See Detail 11/10/23 11/11/23 11/11/23 20:39 06:01 07:47 WBC 3.4 L RBC 2.65 L Hgb 7.7 L Hct 24.8 L MCV 93.6 MCH 29.1 MCHC 31.0 RDW 15.9 Plt Count 79 L MPV 11.5 Absolute Nucleated RBC 0.000 Nucleated RBC % (auto) 0.0 POC Glucose 234 H 142 H Blood Type Antibody Screen Crossmatch Preliminary micro results at discharge 11/09/23 20:36 Blood Culture - Preliminary Blood - Venous No growth after 24 hours. 11/09/23 20:36 Blood Culture - Preliminary Blood - Venous No growth after 24 hours. Discharge Plan Discharge Anticipated Discharge Date/Time: 11/11/23 10:22 Patient Disposition: Home Health Service Discharge Diagnosis: Gross hematuria Acute on chronic blood-loss anemia Hyperkalemia Referrals: Xander Marin [Outside] - 3-5 Days (HOME SERVICES FOR GROUP HOME- A NURSE WILL CALL YOU TO SET UP FIRST VISIT.) Roberto Carlos Cisneros PA-C [Primary Care Provider] - 1 Week Discharge Medications: Continued (DME) FreeStyle Marleni 14 Day Trilla Misc See Rx Instructions .Route Qty: 1 0RF Rx Instructions: As directed (DME) FreeStyle Marleni 14 Day Sensor Kit See Rx Instructions .Route Qty: 2 2RF Rx Instructions: As directed (DME) blood-glucose meter [FreeStyle Lite Meter] Kit See Rx Instructions .Route Qty: 1 0RF Rx Instructions: As directed tamsulosin 0.4 mg capsule 0.4 mg PO DAILY 90 Days Qty: 90 1RF alprazolam 0.5 mg tablet 0.5 mg PO BID PRN (Reason: Anxiety) 30 Days Qty: 60 2RF folic acid 800 mcg tablet 0.8 mg PO DAILY 30 Days Qty: 30 3RF bethanechol chloride 25 mg tablet 25 mg PO BID 90 Days Qty: 180 1RF (DME) pen needle, diabetic [BD Ultra-Fine Gifty Pen Needle] 32 gauge x 5/32 needle See Rx Instructions .ROUTE .MEDSUPPLY Qty: 50 3RF Rx Instructions: As directed (DME) pen needle, diabetic [BD Gifty 2nd Gen Pen Needle] 32 gauge x 5/32 needle See Rx Instructions .MEDSUPPLY Qty: 150 5RF Rx Instructions: 4 times a day Farxiga 10 mg tablet 10 mg PO DAILY 30 Days Qty: 30 3RF ezetimibe [Zetia] 10 mg tablet 10 mg PO DAILY Qty: 30 3RF (DME) FreeStyle Test Strip See Rx Instructions .Route Qty: 100 3RF Rx Instructions: three times per day cyanocobalamin (vitamin B-12) 500 mcg Tablet 1,000 mcg PO BEDTIME Trulicity 0.75 mg/0.5 mL Pen Injector 0.75 mg SUBCUT MO bumetanide 1 mg tablet 1 mg PO DAILY gabapentin 400 mg capsule 400 mg PO BID insulin aspart U-100 [Novolog FlexPen U-100 Insulin] 100 unit/mL (3 mL) insulin pen 8 unit subcut TID Rx Instructions: see directions per sliding scale subcutaneously 3 times a day; Blood sugar 70-130- take 0 units Blood sugar 131-180- take 4 units Blood sugar 181-240- take 8 units Blood sugar 241-to 300- take 10 units Blood sugar 301-to 350- take 12 units Blood sugar 351-400- take 16 units Blood sugar over 400 please call PCP (DME) lancets [FreeStyle Lancets] 28 gauge misc See Rx Instructions .Route Qty: 100 6RF Rx Instructions: As directed three times per day insulin degludec [Tresiba FlexTouch U-100] 100 unit/mL (3 mL) insulin pen 10 unit subcut BEDTIME Qty: 15 0RF (DME) blood pressure test kit-large Kit See Rx Instructions .Route Qty: 1 0RF Rx Instructions: As directed finasteride [Proscar] 5 mg tablet 5 mg PO DAILY 90 Days Qty: 90 1RF carvedilol 6.25 mg tablet 6.25 mg PO BID 30 Days Qty: 60 3RF Rx Instructions: must administer with a meal/food pantoprazole 40 mg tablet,delayed release (DR/EC) 40 mg PO DAILY Qty: 30 3RF atorvastatin 80 mg tablet 80 mg PO BEDTIME 30 Days Qty: 30 3RF ferrous sulfate 325 mg (65 mg iron) tablet,delayed release (DR/EC) 325 mg PO DAILY Changed spironolactone 100 mg tablet 50 mg PO DAILY Qty: 60 0RF Protocol: Hold for SBP< HOLD for SBP < : 120 Held aspirin [Adult Aspirin Regimen] 81 mg tablet,delayed release (DR/EC) 81 mg PO DAILY 30 Days Qty: 30 3RF Hold Instructions: Resume on 11/13/23. Discharge Orders: Discharge Order (Routine); Ordered 11/11/23 Ordered By: Delmy Zavala Diet: Diabetic diet Activity on Discharge: As tolerated Stand Alone Forms: Patient Portal Discharge page Care Plan Goals: Recurrent hyperkalemia likely due to spironolactone, dose of spironolactone reduced to 50 mg daily As per patient he is on Lipitor 40 mg daily/take half tablet of 80 mg Lipitor daily Resume aspirin 11/13/23 Health Concerns: Diabetes mellitus Hyperlipidemia Anemia Plan of Treatment: Outpatient follow-up with primary care physician, Cardiology and Gastroenterology call for appointment Follow-up with call for appointment in 1-2 weeks Assessment: As above
--- NOTE | 2023-11-11 10:42 | MHC.CM.PN ---
DP: PT HAS BEEN MEDICALLY CLEARED FOR DC HOME WITH SERVICES FROM [facility]. [facility] NOTIFIED OF TODAY'S DC. SON WILL TRANSPORT HOME
[2023-11-11 11:33] LABS: Glucose, Whole Blood 228 mg/dL (60-115)
--- NOTE | 2023-11-11 12:00 | HO.WOUND ---
Wound Consult: Initial 78yr old M? admitted to [facility] on - See progress notes and H&P for detailed history.? Wound consult placed for Sacrum wound POA.? Patient agreeable to assessment and photo documentation.? Of note Patient is set edward d/c to home this afternoon. Chart review reveals patient experienced a fall at home and there are several areas of ecchymosis noted along with thrombocytopenia Platelet count of 79. Sacrum Etiology: ?Ecchymosis and Thrombocytopenia - ?Present on Admission Wound Bed: irregular areas of bruising and patterns not consistent with pressure injury Drainage / Odor: None Edges: ? Irregular Soniya wound: ?MASD in perianal area - No Induration, Fluctuance or Warmth noted Pain: reports pain at coccyx and sacrum and right trochanter Goals of Treatment: ? Off Load Pressure and protect from friction. Recommendations: 1. Sacrum - Routine cleansing - apply sacral foam dressing peel back and assess and change every 3 days. Re-consult wound care Nurse for wound deterioration or wound changes.
[2023-11-11] MEDS: Insulin Lispro 100 UNIT/ML 3 ML VIAL SUBCUT (12:06)
--- NOTE | 2023-11-17 07:47 | P.CDIM_ITS ---
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 Please review below and update the documentation accordingly. Clinical Indicators: The diagnosis of Radiation Cystitis was documented on the ER Physician note 11/09/23 but is not consis tently noted in subsequent documentation. 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 Please use your independent medical judgment in providing your response. THIS QUERY IS PART OF THE PERMANENT MEDICAL RECORD
== END 2023-11-11 13:42 | disposition home health service (06) | DRG 699 ==
LOC: HO.ED 19:21 → HO.EDOVER 20:15 → HO.S3 22:07
PROVIDERS: Physician Assistant Medical; Student in an Organized Health Care Education/Training Program; Admitting Provider Physician Assistant; Emergency Provider Emergency Medicine; PCP Physician Assistant; Visit Provider Hospitalist
DX: N30.41 Irradiation cystitis with hematuria (principal); D62 Acute posthemorrhagic anemia; R18.8 Other ascites; I85.10 Secondary esophageal varices without bleeding; E87.5 Hyperkalemia; I25.10 Atherosclerotic heart disease of native coronary artery without angina pectoris; E11.42 Type 2 diabetes mellitus with diabetic 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; E78.5 Hyperlipidemia, unspecified; K74.60 Unspecified cirrhosis of liver; G47.33 Obstructive sleep apnea (adult) (pediatric); Z91.041 Radiographic dye allergy status; Z91.040 Latex allergy status; Z95.0 Presence of cardiac pacemaker; Z95.2 Presence of prosthetic heart valve; Z79.2 Long term (current) use of antibiotics; Z79.4 Long term (current) use of insulin; Z79.82 Long term (current) use of aspirin; Z79.85 Long-term (current) use of injectable non-insulin antidiabetic drugs; Z79.899 Other long term (current) drug therapy; Z85.46 Personal history of malignant neoplasm of prostate
CPT/HCPCS: 36415; 80048; 80053; 81001; 82010; 82803; 82947; 83735; 83930; 85025; 85027; 85610; 85730; 86850; 86900; 86901; 86923; 87040; 87086; 93005; 99285; J0613; J0696; P9016

== ENCOUNTER → 2023-11-09 16:33 | Outpatient (BNV) | payer MEDICARE, SELFPAY | PROVIDERS: Admitting Provider Physician Assistant; Emergency Provider Emergency Medicine; PCP Physician Assistant; Visit Provider Internal Medicine | DX: R94.31 Abnormal electrocardiogram [ECG] [EKG] (principal) | CPT/HCPCS: 93010 ==

== ENCOUNTER → 2023-11-09 19:58 | Outpatient (BNV) | payer MEDICARE, SELFPAY | PROVIDERS: Admitting Provider Physician Assistant; Emergency Provider Emergency Medicine; PCP Physician Assistant; Visit Provider Physician Assistant | DX: E87.5 Hyperkalemia (principal); R31.0 Gross hematuria | CPT/HCPCS: 99223; 99233; 99238; G0180 ==

== ENCOUNTER 2023-11-17 07:05 | Outpatient (REF) | payer MEDICARE, SELFPAY ==
[2023-11-17 10:05] LABS: MANUAL DIFF FLAG NO
[2023-11-17 10:06] LABS: Basophils Percent Auto 0.8 % (0-2); Eosinophils Percent Auto 0.3 % (0-4); Hematocrit 22.5 % (42.0-52.0); Imm Gran Abs Auto 0.02 X10*3/uL (0.00-0.03); Imm Gran Pct Auto 0.6 % (0.0-0.4); Lymphocytes Absolute Auto 0.4 X10*3/uL (1.2-4.9); Lymphocytes Percent Auto 11.7 % (20-40); Mean Corpuscular HGB Conc 30.7 g/dl (31.0-36.0); Mean Corpuscular Hemoglobin 28.9 pg (27.0-33.0); Mean Corpuscular Volume 94.1 fL (80.0-98.0); Monocytes Absolute Auto 0.5 X10*3/uL (0.1-1.2); Monocytes Percent Auto 13.1 % (2-11); Neutrophils Absolute Auto 2.6 x10*3/uL (2.0-8.3); Neutrophils Percent Auto 73.5 % (45-73); Red Blood Count 2.39 X10*6/uL (4.60-5.80); Red Cell Distribution Width 15.9 % (11.0-16.0); White Blood Count 3.6 X10*3/uL (4.8-10.8)
[2023-11-17 10:13] LABS: Hemoglobin 6.9 g/dl (14.0-18.0); Platelet Count 88 X10*3/uL (160-400)
[2023-11-17 10:22] LABS: Alanine Aminotransferase 58 U/L (0-40); Albumin Level 2.8 g/dL (3.5-5.0); Alkaline Phosphatase 150 U/L (39-117); Anion Gap 8 (12-20); Aspartate Amino Transferase 50 U/L (5-37); Bilirubin Total 0.7 mg/dL (0.0-1.0); Blood Urea Nitrogen 52 mg/dL (9-16); Calcium 7.8 mg/dL (8.4-10.2); Carbon Dioxide 21 mmol/L (22-29); Chloride 116 mmol/L (96-108); Estimated Glomerular Filt Rate 46; Glucose Random 188 mg/dL (60-115); Potassium 5.7 mmol/L (3.3-5.1); Sodium 139 mmol/L (135-145); Total Protein 5.3 g/dL (6.5-8.0)
== END 2023-11-17 07:06 | disposition home or self-care (01) ==
LOC: HO.LHD 07:05
PROVIDERS: Visit Provider Internal Medicine
DX: D64.9 Anemia, unspecified (principal)
CPT/HCPCS: 36415; 80053; 85025

== ENCOUNTER 2023-11-24 | Outpatient (REF) | payer MEDICARE, SELFPAY ==
[2023-11-24 10:23] LABS: MANUAL DIFF FLAG NO
[2023-11-24 10:25] LABS: Basophils Percent Auto 1.1 % (0-2); Eosinophils Absolute Auto 0.1 X10*3/uL (0.0-0.4); Hematocrit 25.3 % (42.0-52.0); Hemoglobin 7.5 g/dl (14.0-18.0); Imm Gran Abs Auto 0.01 X10*3/uL (0.00-0.03); Imm Gran Pct Auto 0.3 % (0.0-0.4); Lymphocytes Absolute Auto 0.6 X10*3/uL (1.2-4.9); Lymphocytes Percent Auto 15.2 % (20-40); Mean Corpuscular HGB Conc 29.6 g/dl (31.0-36.0); Mean Corpuscular Volume 94.4 fL (80.0-98.0); Mean Platelet Volume 11.2 fL (9.4-12.4); Monocytes Absolute Auto 0.5 X10*3/uL (0.1-1.2); Monocytes Percent Auto 13.2 % (2-11); Neutrophils Absolute Auto 2.4 x10*3/uL (2.0-8.3); Neutrophils Percent Auto 67.2 % (45-73); Red Blood Count 2.68 X10*6/uL (4.60-5.80); Red Cell Distribution Width 15.8 % (11.0-16.0); White Blood Count 3.6 X10*3/uL (4.8-10.8)
[2023-11-24 10:38] LABS: Platelet Count 83 X10*3/uL (160-400)
== END 2023-11-24 00:01 | disposition home or self-care (01) ==
LOC: HO.LHD
PROVIDERS: Visit Provider Internal Medicine
DX: D64.9 Anemia, unspecified (principal)
CPT/HCPCS: 36415; 85025

== ENCOUNTER 2023-12-01 07:43 | Outpatient (REF) | payer MEDICARE, SELFPAY ==
[2023-12-01 10:33] LABS: MANUAL DIFF FLAG NO
[2023-12-01 10:36] LABS: Basophils Percent Auto 1.1 % (0-2); Eosinophils Absolute Auto 0.1 X10*3/uL (0.0-0.4); Eosinophils Percent Auto 3.4 % (0-4); Hematocrit 27.7 % (42.0-52.0); Hemoglobin 8.6 g/dl (14.0-18.0); Imm Gran Abs Auto 0.01 X10*3/uL (0.00-0.03); Imm Gran Pct Auto 0.3 % (0.0-0.4); Lymphocytes Absolute Auto 0.6 X10*3/uL (1.2-4.9); Lymphocytes Percent Auto 17.4 % (20-40); Mean Corpuscular Hemoglobin 29.2 pg (27.0-33.0); Mean Corpuscular Volume 93.9 fL (80.0-98.0); Mean Platelet Volume 11.8 fL (9.4-12.4); Monocytes Absolute Auto 0.4 X10*3/uL (0.1-1.2); Monocytes Percent Auto 12.5 % (2-11); Neutrophils Absolute Auto 2.3 x10*3/uL (2.0-8.3); Neutrophils Percent Auto 65.3 % (45-73); Platelet Count 89 X10*3/uL (160-400); Red Blood Count 2.95 X10*6/uL (4.60-5.80); Red Cell Distribution Width 15.7 % (11.0-16.0); White Blood Count 3.5 X10*3/uL (4.8-10.8)
== END 2023-12-01 07:44 | disposition home or self-care (01) ==
LOC: HO.LHD 07:43
PROVIDERS: Visit Provider Internal Medicine
DX: D64.9 Anemia, unspecified (principal)
CPT/HCPCS: 36415; 85025

== ENCOUNTER 2023-12-08 08:51 | Outpatient (REF) | payer MEDICARE, SELFPAY | END 2023-12-08 08:52 | disposition home or self-care (01) | LOC: HO.LHD 08:51 | PROVIDERS: Visit Provider Internal Medicine | DX: Z13.89 Encounter for screening for other disorder (principal) ==

== ENCOUNTER 2023-12-15 08:10 | Outpatient (REF) | payer MEDICARE, SELFPAY ==
[2023-12-15 10:58] LABS: MANUAL DIFF FLAG NO
[2023-12-15 11:04] LABS: Basophils Absolute Auto 0.1 X10*3/uL (0.0-0.2); Eosinophils Absolute Auto 0.2 X10*3/uL (0.0-0.4); Eosinophils Percent Auto 3.1 % (0-4); Hematocrit 24.4 % (42.0-52.0); Hemoglobin 7.5 g/dl (14.0-18.0); Imm Gran Abs Auto 0.03 X10*3/uL (0.00-0.03); Imm Gran Pct Auto 0.5 % (0.0-0.4); Lymphocytes Absolute Auto 0.6 X10*3/uL (1.2-4.9); Lymphocytes Percent Auto 9.5 % (20-40); Mean Corpuscular HGB Conc 30.7 g/dl (31.0-36.0); Mean Corpuscular Hemoglobin 28.4 pg (27.0-33.0); Mean Corpuscular Volume 92.4 fL (80.0-98.0); Monocytes Absolute Auto 0.6 X10*3/uL (0.1-1.2); Monocytes Percent Auto 10.5 % (2-11); Neutrophils Absolute Auto 4.6 x10*3/uL (2.0-8.3); Neutrophils Percent Auto 75.4 % (45-73); Platelet Count 124 X10*3/uL (160-400); Red Blood Count 2.64 X10*6/uL (4.60-5.80); Red Cell Distribution Width 16.2 % (11.0-16.0); White Blood Count 6.1 X10*3/uL (4.8-10.8)
== END 2023-12-15 08:11 | disposition home or self-care (01) ==
LOC: HO.LHD 08:10
PROVIDERS: Visit Provider Internal Medicine
DX: D64.9 Anemia, unspecified (principal)
CPT/HCPCS: 36415; 85025

== ENCOUNTER 2023-12-22 07:30 | Outpatient (REF) | payer MEDICARE, SELFPAY ==
[2023-12-22 10:34] LABS: MANUAL DIFF FLAG NO
[2023-12-22 10:41] LABS: Basophils Percent Auto 0.9 % (0-2); Eosinophils Absolute Auto 0.1 X10*3/uL (0.0-0.4); Eosinophils Percent Auto 3.2 % (0-4); Hematocrit 24.6 % (42.0-52.0); Hemoglobin 7.7 g/dl (14.0-18.0); Imm Gran Abs Auto 0.02 X10*3/uL (0.00-0.03); Imm Gran Pct Auto 0.5 % (0.0-0.4); Lymphocytes Absolute Auto 0.5 X10*3/uL (1.2-4.9); Lymphocytes Percent Auto 11.7 % (20-40); Mean Corpuscular HGB Conc 31.3 g/dl (31.0-36.0); Mean Corpuscular Hemoglobin 28.5 pg (27.0-33.0); Mean Corpuscular Volume 91.1 fL (80.0-98.0); Mean Platelet Volume 11.1 fL (9.4-12.4); Monocytes Absolute Auto 0.7 X10*3/uL (0.1-1.2); Monocytes Percent Auto 14.9 % (2-11); Neutrophils Percent Auto 68.8 % (45-73); Platelet Count 102 X10*3/uL (160-400); Red Cell Distribution Width 15.2 % (11.0-16.0); White Blood Count 4.4 X10*3/uL (4.8-10.8)
== END 2023-12-22 07:31 | disposition home or self-care (01) ==
LOC: HO.LHD 07:30
PROVIDERS: Visit Provider Internal Medicine
DX: D64.9 Anemia, unspecified (principal)
CPT/HCPCS: 36415; 85025

== ENCOUNTER 2024-01-25 10:41 | Inpatient (IN) | payer MEDICARE, SELFPAY ==
[2024-01-25] VITALS (13 sets, daily range): BP systolic 86–110; BP diastolic 33–53; PULSE 60–61; RESP 10–17; TEMP 36.3–36.6; O2SAT 94–100; BMI 27.4
--- NOTE | ~2024-01-25 | CT_ITS ---
EXAMINATION: CT HEAD WITHOUT CONTRAST CLINICAL INFORMATION: Dizziness and confusion. COMPARISON: Head CT from 11/04/2023 TECHNIQUE: Contiguous axial imaging was performed from the skull base to vertex without intravenous administration of contrast. This CT examination was performed using dose optimization techniques as appropriate, variously including the following: *Automated exposure control *Adjustment of mA and/or kV according to patient size (this includes techniques or standardized protocols for targeted exams where dose is matched to indication/reason for exam; i.e. extremities or head) *Use of iterative reconstruction technique DLP: 702 mGy-cm FINDINGS: No acute abnormalities. No evidence of intracranial hemorrhage, extra-axial surface collection, focal mass effect or midline shift. There is atherosclerotic calcification of cavernous carotid arteries. Chronic patchy hypoattenuation within supratentorial white matter is compatible with sequela of microangiopathy. The izaguirre-white matter differentiation is maintained. No evidence of an acute major vascular territory infarction. Chronic moderate parenchymal volume loss with commensurate prominence of ventricles and sulci. No hydrocephalus. The cerebellar tonsils are normal position. There is an old stable 1.4 cm focus of ossification along the inner table of the left frontal calvarium. The paranasal sinuses and mastoid air cells are well aerated. Mild osteoarthrosis of the right temporomandibular joint. Prior lens replacements. CT/CT head/brain wo IV con IMPRESSION: No intracranial hemorrhage or other acute intracranial pathology compared to 11/04/2023. 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
--- NOTE | ~2024-01-25 | US_ITS ---
EXAMINATION: US ABDOMEN LIMITED CLINICAL INFORMATION: . COMPARISON: None available. TECHNIQUE: Real-time imaging of the right upper quadrant abdominal viscera. FINDINGS: PANCREAS: The pancreas is normal in size and somewhat heterogeneous echotexture. No mass or ductal dilatation is seen. LIVER: The liver is normal in size. The liver contour is normal. Parenchymal echogenicity is coarse. No focal hepatic lesion. There is no intrahepatic biliary duct dilatation seen. The portal vein is patent, showing hepatopedal flow. COMMON BILE DUCT: Normal in caliber measuring 0.7 cm in diameter. FREE FLUID: There is trace perihepatic free fluid. US/US abdomen limited IMPRESSION: 1. The portal vein is patent and shows hepatopedal flow. 2. There is generalized increase in hepatic echotexture, consistent with fatty infiltration or hepatocellular disease. Please correlate clinically. No focal hepatic mass or intrahepatic biliary dilatation is seen. 3. There is trace perihepatic free fluid. 4. Technically limited ultrasound examination the pancreas.
--- NOTE | ~2024-01-25 | XR_ITS ---
EXAMINATION: XR CHEST CLINICAL INFORMATION: Confusion COMPARISON: CXR from 06/08/2022. Chest CT from 12/29/2022. TECHNIQUE: 2 views of the chest were obtained. FINDINGS: Lungs are well expanded and without acute disease. No pulmonary mass, consolidation or pleural effusion. Cardiac silhouette is chronically enlarged with dual-chamber pacemaker in place. The tips of overlying the region of the right atrium and right ventricle and appear to be in stable position compared to 12/29/2022. Status post transcatheter aortic valve replacement. Pulmonary vascular pattern is normal. There is atherosclerotic calcification of the aorta. No acute osseous abnormality. XR/XR chest 2V IMPRESSION: No acute abnormality. No evidence of pneumonia or congestive heart failure.
--- NOTE | 2024-01-25 10:48 | ED.GENADULT ---
HPI - General Adult General Chief complaint: Altered Mental Status Stated complaint: DIZZY,CONFUSED,LOW BP 86/42 PER EMS Time Seen by Provider: 01/25/24 10:48 Source: patient, EMS and RN notes reviewed Mode of arrival: EMS Limitations: no limitations History of Present Illness HPI narrative: Patient is an 78-year-old male with history of T2DM, hepatic cirrhosis, anemia, HTN, dyslipidemia, CAD, ANUJA, prostate CA, IBS, aortic stenosis, GERD presenting to the emergency department from home with complaint of weakness and confusion at home this morning. States that he was planning to go for labs, as well as blood transfusion which he receives every Thursday. He states that his middle school librarian just prescribe him some oxycodone any took the 1st dose today, states he has never taken this in the past. Denies any new or different pain today. Denies chest pain, shortness of breath, palpitations. Denies abdominal pain, nausea, vomiting, diarrhea, constipation. Denies hematochezia or melena. Denies any new pain. MD complaint: confusion Onset (ago): hour(s) Treatments prior to arrival: none Related Data Home Medications ?Medication ?Instructions ?Recorded ?Confirmed cyanocobalamin (vitamin B-12) 500 1,000 mcg PO BEDTIME 12/29/22 11/09/23 mcg tablet ferrous sulfate 325 mg (65 mg 325 mg PO DAILY 04/29/23 11/09/23 iron) tablet,delayed release dulaglutide 0.75 mg/0.5 mL 0.75 mg subcut MO 11/09/23 11/09/23 subcutaneous pen injector (Trulicity) atorvastatin 80 mg tablet 40 mg PO BEDTIME 11/18/23 11/18/23 Previous Rx's ?Medication ?Instructions ?Recorded blood pressure test kit-large #1 ea 11/21/21 blood-glucose meter (FreeStyle #1 ea 10/03/22 Lite Meter kit) flash glucose scanning reader #1 ea 10/03/22 (FreeStyle Marleni 14 Day [place]) flash glucose sensor (FreeStyle #2 ea 10/03/22 Marleni 14 Day Sensor kit) aspirin 81 mg tablet,delayed 81 mg PO DAILY 30 days #30 tabs 03/11/23 release (Adult Aspirin Regimen) carvedilol 6.25 mg tablet 6.25 mg PO BID 30 days #60 tabs 03/11/23 pantoprazole 40 mg tablet,delayed 40 mg PO DAILY #30 tabs 03/11/23 release folic acid 800 mcg tablet 0.8 mg PO DAILY 30 days #30 tabs 07/30/23 bethanechol chloride 25 mg tablet 25 mg PO BID 90 days #180 tabs 09/15/23 dapagliflozin propanediol 10 mg 10 mg PO DAILY 30 days #30 tabs 10/07/23 tablet (Farxiga) pen needle, diabetic 32 gauge x #150 ea 10/07/23 (BD Gifty 2nd Gen Pen Needle) pen needle, diabetic 32 gauge x #50 ea 10/07/23 (BD Ultra-Fine Gifty Pen Needle) lancets 28 gauge (FreeStyle #100 ea 10/21/23 Lancets) tamsulosin 0.4 mg capsule 0.4 mg PO DAILY 90 days #90 caps 11/13/23 alprazolam 0.5 mg tablet 0.5 mg PO BID PRN Anxiety 30 days 11/24/23 #60 tabs bumetanide 1 mg tablet 1 mg PO DAILY 90 days #90 tabs 12/01/23 gabapentin 400 mg capsule 400 mg PO BID 90 days #180 caps 12/01/23 spironolactone 100 mg tablet 50 mg PO DAILY #60 tabs 12/01/23 finasteride 5 mg tablet (Proscar) 5 mg PO DAILY 90 days #90 tabs 12/28/23 insulin aspart U-100 100 unit/mL 20 unit (0.2 mL) subcut TID 30 12/28/23 (3 mL) subcutaneous pen ( days #15 mL FlexPen U-100 Insulin aspart) blood sugar diagnostic (FreeStyle #100 ea 01/08/24 Test strips) ezetimibe 10 mg tablet (Zetia) 10 mg PO DAILY #30 tabs 01/08/24 insulin degludec 100 unit/mL (3 10 unit (0.1 mL) subcut BEDTIME 01/08/24 mL) subcutaneous pen (Tresiba #15 mL FlexTouch U-100 insulin) Allergies Allergy/AdvReac Type Severity Reaction Status Date / Time KARL Inhibitors Allergy Severe Angioedema Verified 01/25/24 11:15 dextran 40 [DEXTRAN 40] Allergy Intermediate tachycardia Verified 01/25/24 11:15 latex [LATEX] Allergy Mild BLISTERS Verified 01/25/24 11:15 lisinopril [From Zestril] Allergy Mild Unknown Verified 01/25/24 11:15 Iodinated Contrast Media Allergy Unknown UNKNOWN Verified 01/25/24 11:15 [CONTRAST,IV] Review of Systems Review of Systems: As per HPI. 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 Streptococcal bacteremia Fracture of left humerus History of prostate cancer Acute lower gastrointestinal bleeding COVID-19 vaccine series completed Hypertension Dyslipidemia Diabetic nephropathy associated with type 2 diabetes mellitus Diabetic 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 associated with type 2 diabetes mellitus shelter (current) use of insulin Diabetes type 2, uncontrolled Varices of esophagus determined by endoscopy Esophageal varices without bleeding KOEHLER (dyspnea on exertion) Chronic fatigue Iron deficiency anemia CAD (coronary artery disease) ANUJA on CPAP Prostate cancer Spinal stenosis On beta kayy at home IBS (irritable colon syndrome) Aortic stenosis HTN (hypertension) DMII (diabetes mellitus, type 2) Polyneuropathy GERD (gastroesophageal reflux disease) Surgical History S/P infectious endocarditis H/O cataract extraction Hx of endoscopy History of colonoscopy Hx of esophagogastroduodenoscopy Hx of colonoscopy History of surgery History of transurethral resection of prostate History of surgery History of heart artery stent Family History Family History Father CVD (cardiovascular disease) Past heart attack Mother CVD (cardiovascular disease) Brain cancer Heart problem Daughter Breast cancer Sister Breast cancer Son Alive and well Family/Other Myocardial infarction Liver cancer Social History Social History Household Members: Significant Other Household Members Other:: Myesha Housing: House Are you a primary residential caregiver to a significant other at home: No Do you presently have visiting nurse or other home services: No Alcohol intake: never Patient Tobacco Use Status: Never used Tobacco Smoked in Last 30 Days: No e-Cigarette/Vaping Use: Never Used Second Hand Smoke Exposure: No Use of substances other than those prescribed or required for medical reasons: No Advance Directives: Yes Advance Directives on File: Yes Advance Directives Date on File: 08/31/23 Do you have a plan to hurt others: No Plan service: No Current occupational status: retired Cognitive needs: No Hearing needs: No Vision needs: Yes Physical Exam ED Vital Signs: Vital Signs - 24 hr 01/25/24 11:11 01/25/24 12:21 01/25/24 13:02 Temperature 97.9 F 97.7 F Pulse Rate 61 61 61 Respiratory Rate 16 17 10 L Blood Pressure 96/35 L 100/34 L 101/35 L Pulse Oximetry 96 94 Oxygen Delivery Method Room Air Room Air 01/25/24 13:18 01/25/24 14:37 Temperature 97.7 F 98 F Pulse Rate 61 60 Respiratory Rate 10 L 16 Blood Pressure 100/33 L 102/39 L Pulse Oximetry 99 Oxygen Delivery Method Room Air BMI result Body Mass Index 27.4 Vital signs have been reviewed and appear to be correct. Blood pressure low. Heart rate normal. Respiratory rate normal. Temperature normal. Oxygen saturation normal. Const General: no acute distress, alert and awake Nutritional Appearance: average body habitus Orientation/consciousness: patient oriented x3 HENMT Head: Yes normal to inspection, Yes normocephalic and Yes atraumatic Ears: hearing grossly normal bilaterally and external ears normal General nose exam: Normal external nose present and Normal nasal mucous membranes and turbinates present Mouth: Normal oral and palatal mucosa present Throat: Yes uvula midline Eyes Pupils: Equal, round and reactive pupils present Neck Neck: Yes normal visual inspection and Yes supple Resp Effort & Inspection: normal respiratory effort Auscultation: clear to auscultation bilaterally Cardio Rate: regular rate Rhythm: regular rhythm Heart sounds: S1 normal heart sound present and S2 normal heart sound present Peripheral pulses: Peripheral pulses 2+ throughout GI Inspection: Yes normal to inspection Palpation (GI): Soft to palpation and nontender Auscultation: normoactive bowel sounds General: Yes no CVA tenderness Back/Spine/Pelvis Back: no CVA tenderness Skin General skin exam: elasticity normal and turgor normal Neuro General: patient oriented x3, tone normal, moves all extremities, Normal light touch and pain sensation and no focal motor deficits Cranial nerves: Yes Equal, round and reactive pupils present Motor exam (neuro): 5/5 motor strength present throughout, Pronator motor function not present, Normal motor muscle tone present throughout and Motor abnormalities not present Sensory Exam: Normal double simultaneous stimulation for sensation Extrem General: Yes full ROM and Yes capillary refill normal Right lower extremity: ankle Details: edema Details: pitting and 3+ Left lower extremity: ankle Details: pitting edema Details: pitting and 3+ NIH Stroke Scale Internal: Initial- Upon Arrival Time: 11:36 Level of Consciousness: Alert Level of Consciousness Questions: Answers both questions correctly Level of Consciousness Commands: Performs both tasks correctly Best Gaze: Normal Visual: No visual loss Facial Palsy: Normal Motor Arm (Right): No drift Motor Arm (Left): No drift Motor Leg (Right): No drift Motor Leg (Left): No drift Limb Ataxia: Absent Sensory: Normal Best Language: No aphasia Dysarthia: Normal Extinction and Inattention: No abnormality Score: 0 Medications Administered Discontinued Medications Generic Name Dose Route Start Last Admin Trade Name Freq PRN Reason Stop Dose Admin Sodium Chloride 100 mls @ 100 mls/hr 01/25/24 12:07 01/25/24 12:54 Ns IV 01/25/24 13:06 100 mls/hr ONCE ONE Administration Insulin Human Regular 5 unit 01/25/24 12:58 01/25/24 13:53 Insulin Regular, Human 100 Unit/Ml 3 Ml Vial IVPUSH 01/25/24 12:59 5 unit ONCE ONE Administration Lactulose 10 gm 01/25/24 12:58 01/25/24 13:42 Lactulose 20 Gm/30 Ml Solution PO 01/25/24 12:59 10 gm ONCE ONE Administration Sodium Zirconium Cyclosilicate 10 gm 01/25/24 12:58 01/25/24 13:42 Sodium Zirconium Cyclosilicate 10 Gm Powd.Pack PO 01/25/24 12:59 10 gm ONCE ONE Administration Medical Decision Making Medical Decision Making MDM Narrative: Patient is an 78-year-old male with history of T2DM, hepatic cirrhosis, anemia, HTN, dyslipidemia, CAD, ANUJA, prostate CA, IBS, aortic stenosis, GERD presenting to the emergency department from home with complaint of weakness and confusion at home this morning. On exam patient is awake, A+Ox3, BP low, VS otherwise WNL, afebrile, normal neurological exam without focal deficits, physical exam findings as above. Patient is reporting that he took an oxycodone this morning prescribed to him by his middle school librarian. Review of NUCLEAR EQUIPMENT TEST ENGINEER shows patient has not recently filled any prescriptions for oxycodone. Given reported symptoms and physical exam findings, initial differential includes anemia, electrolyte abnormality, adverse effect of opiate, UTI, pneumonia, elevated ammonia. Do not suspect sepsis at 12:55p. Labs notable for hgb of 6.9/hct of 22.5 which is consistent with patient's report of anemia and requiring weekly blood transfusions. 2 units of RBCs ordered. Hyperkalemia of 5.6, Lokelma, insulin and dextrose orderded. Ammonia elevated, lactulose ordered. Chronically elevated BUN/Cr. Viral serology negative. X-ray chest notable for no evidence of pneumonia or CHF. CT head notable for no acute abnormalities. My interpretation is in agreement with the radiologist's interpretation. Case discussed with Dr. Crarion who accepts inpatient admission to medicine service. Differential Diagnosis Differential Diagnoses: The differential diagnosis associated with the presentation includes As per [facility]. Admission/Observation Consideration of admission/observation: Escalation of care including admission/observation considered Consult Healthcare Provider Management of the patient was discussed with: Hospitalist Lab Data [facility] Lab Attestation statement: I reviewed the patient's lab results. As per [facility]. 01/25/24 11:33 01/25/24 11:32 Labs: Lab Results 01/25/24 01/25/24 01/25/24 Range/Units 11:32 11:33 11:39 WBC 3.5 L (4.8-10.8) X10*3/uL RBC 2.48 L (4.60-5.80) X10*6/uL Hgb 6.9 L* (14.0-18.0) g/dl Hct 22.5 L (42.0-52.0) % MCV 90.7 (80.0-98.0) fL MCH 27.8 (27.0-33.0) pg MCHC 30.7 L (31.0-36.0) g/dl RDW 16.0 (11.0-16.0) % Plt Count 98 L (160-400) X10*3/uL MPV 11.6 (9.4-12.4) fL Immature Gran % (Auto) 0.6 H (0.0-0.4) % Neut % (Auto) 70.3 (45-73) % Lymph % (Auto) 11.6 L (20-40) % [place]ett % (Auto) 13.3 H (2-11) % Eos % (Auto) 2.8 (0-4) % Baso % (Auto) 1.4 (0-2) % Lymph # (Auto) 0.4 L (1.2-4.9) X10*3/uL [place]ett # (Auto) 0.5 (0.1-1.2) X10*3/uL Eos # (Auto) 0.1 (0.0-0.4) X10*3/uL Baso # (Auto) 0.1 (0.0-0.2) X10*3/uL Abs Immat Gran (auto) 0.02 (0.00-0.03) X10*3/uL Absolute Neuts (auto) 2.5 (2.0-8.3) x10*3/uL Absolute Nucleated RBC 0.000 (0.0-0.012) X10*3/uL Nucleated RBC % (auto) 0.0 (0.0-0.2) /100WBC PT 14.0 H (11.1-13.3) SEC INR 1.2 H (0.9-1.1) VBG pH (7.32-7.43) VBG pCO2 mmHg VBG pO2 mmHg VBG HCO3 (22-26) mmol/L VBG O2 Saturation % VBG Base Excess mmol/L Sodium 137 (135-145) mmol/L Potassium 5.6 H (3.3-5.1) mmol/L Chloride 112 H (96-108) mmol/L Carbon Dioxide 18 L (22-29) mmol/L Anion Gap 13 (12-20) BUN 59 H (9-16) mg/dL Creatinine 1.78 H (0.5-1.4) mg/dL Estim Creat Clear Calc 33.0 Estimated GFR 37 POC Glucose (60-115) mg/dL Random Glucose 275 H (60-115) mg/dL Lactic Acid 1.2 (0.5-2.0) mmol/L Calcium 8.0 L (8.4-10.2) mg/dL Magnesium 2.2 (1.6-2.6) mg/dL Total Bilirubin 0.6 (0.0-1.0) mg/dL AST 23 (5-37) U/L ALT 26 (0-40) U/L Alkaline Phosphatase 106 (39-117) U/L Ammonia 83 H (13-55) umol/L Troponin I High Sens 8.5 (<3.5-35.0) ng/L B-Natriuretic Peptide 202 H (<100) pg/mL Total Protein 5.7 L (6.5-8.0) g/dL Albumin 3.0 L (3.5-5.0) g/dL Urine Color Urine Appearance Urine pH (5.0-9.0) Ur Specific [place] (1.005-1.025) Urine Protein (Neg-Trace) mg/dL Urine Glucose (UA) (Negative) mg/dL Urine Ketones (Negative) mg/dL Urine Blood (Negative) Urine Nitrite (Negative) Ur Leukocyte Esterase (Negative) Urine RBC (0-2) /HPF Urine WBC (0-5) /HPF Ur Squamous Epith Cells (0-2) /HPF Urine Bacteria (None Seen) Hyaline Casts (0-2) /LPF Stool Occult Blood (NEGATIVE) Urine Opiates Screen (Not Detect) Ur Buprenorphine Scrn (Not Detect) ng/mL Ur Oxycodone Screen (Not Detect) ng/mL Urine Methadone Screen (Not Detect) ng/mL Urine Fentanyl Screen (Not Detect) Ur Barbiturates Screen (Not Detect) Ur Phencyclidine Scrn (Not Detect) Ur Amphetamines Screen (Not Detect) U Benzodiazepines Scrn (Not Detect) Urine Cocaine Screen (Not Detect) U Marijuana (THC) Screen (Not Detect) Ethyl Alcohol < 10 mg/dL Influenza Type A (PCR) NEGATIVE (Negative) Influenza Type B (PCR) NEGATIVE (Negative) RSV RNA Qual (PCR) NEGATIVE (Negative) SARS-CoV-2 RNA (RT-PCR) NEGATIVE (Negative) Blood Type A Positive Antibody Screen NEGATIVE Crossmatch See Detail 01/25/24 01/25/24 01/25/24 Range/Units 11:40 12:56 13:45 WBC (4.8-10.8) X10*3/uL RBC (4.60-5.80) X10*6/uL Hgb (14.0-18.0) g/dl Hct (42.0-52.0) % MCV (80.0-98.0) fL MCH (27.0-33.0) pg MCHC (31.0-36.0) g/dl RDW (11.0-16.0) % Plt Count (160-400) X10*3/uL MPV (9.4-12.4) fL Immature Gran % (Auto) (0.0-0.4) % Neut % (Auto) (45-73) % Lymph % (Auto) (20-40) % [place] % (Auto) (2-11) % Eos % (Auto) (0-4) % Baso % (Auto) (0-2) % Lymph # (Auto) (1.2-4.9) X10*3/uL [place] # (Auto) (0.1-1.2) X10*3/uL Eos # (Auto) (0.0-0.4) X10*3/uL Baso # (Auto) (0.0-0.2) X10*3/uL Abs Immat Gran (auto) (0.00-0.03) X10*3/uL Absolute Neuts (auto) (2.0-8.3) x10*3/uL Absolute Nucleated RBC (0.0-0.012) X10*3/uL Nucleated RBC % (auto) (0.0-0.2) /100WBC PT (11.1-13.3) SEC INR (0.9-1.1) VBG pH 7.32 (7.32-7.43) VBG pCO2 33 mmHg VBG pO2 68 mmHg VBG HCO3 17 L (22-26) mmol/L VBG O2 Saturation 93.0 % VBG Base Excess -7.8 mmol/L Sodium (135-145) mmol/L Potassium (3.3-5.1) mmol/L Chloride (96-108) mmol/L Carbon Dioxide (22-29) mmol/L Anion Gap (12-20) BUN (9-16) mg/dL Creatinine (0.5-1.4) mg/dL Estim Creat Clear Calc Estimated GFR POC Glucose (60-115) mg/dL Random Glucose (60-115) mg/dL Lactic Acid (0.5-2.0) mmol/L Calcium (8.4-10.2) mg/dL Magnesium (1.6-2.6) mg/dL Total Bilirubin (0.0-1.0) mg/dL AST (5-37) U/L ALT (0-40) U/L Alkaline Phosphatase (39-117) U/L Ammonia (13-55) umol/L Troponin I High Sens (<3.5-35.0) ng/L B-Natriuretic Peptide (<100) pg/mL Total Protein (6.5-8.0) g/dL Albumin (3.5-5.0) g/dL Urine Color Yellow Urine Appearance Clear Urine pH 5.0 (5.0-9.0) Ur Specific [place] 1.010 (1.005-1.025) Urine Protein Negative (Neg-Trace) mg/dL Urine Glucose (UA) >=1000 H (Negative) mg/dL Urine Ketones Negative (Negative) mg/dL Urine Blood Negative (Negative) Urine Nitrite Negative (Negative) Ur Leukocyte Esterase Negative (Negative) Urine RBC 0-2 (0-2) /HPF Urine WBC 0-5 (0-5) /HPF Ur Squamous Epith Cells 0-2 (0-2) /HPF Urine Bacteria None Seen (None Seen) Hyaline Casts 3-5 (0-2) /LPF Stool Occult Blood NEGATIVE (NEGATIVE) Urine Opiates Screen Not Detected (Not Detect) Ur Buprenorphine Scrn Not Detected (Not Detect) ng/mL Ur Oxycodone Screen Positive H (Not Detect) ng/mL Urine Methadone Screen Not Detected (Not Detect) ng/mL Urine Fentanyl Screen Not Detected (Not Detect) Ur Barbiturates Screen Not Detected (Not Detect) Ur Phencyclidine Scrn Not Detected (Not Detect) Ur Amphetamines Screen Not Detected (Not Detect) U Benzodiazepines Scrn Not Detected (Not Detect) Urine Cocaine Screen Not Detected (Not Detect) U Marijuana (THC) Screen Not Detected (Not Detect) Ethyl Alcohol mg/dL Influenza Type A (PCR) (Negative) Influenza Type B (PCR) (Negative) RSV RNA Qual (PCR) (Negative) SARS-CoV-2 RNA (RT-PCR) (Negative) Blood Type Antibody Screen Crossmatch 01/25/24 Range/Units 13:57 WBC (4.8-10.8) X10*3/uL RBC (4.60-5.80) X10*6/uL Hgb (14.0-18.0) g/dl Hct (42.0-52.0) % MCV (80.0-98.0) fL MCH (27.0-33.0) pg MCHC (31.0-36.0) g/dl RDW (11.0-16.0) % Plt Count (160-400) X10*3/uL MPV (9.4-12.4) fL Immature Gran % (Auto) (0.0-0.4) % Neut % (Auto) (45-73) % Lymph % (Auto) (20-40) % [place] % (Auto) (2-11) % Eos % (Auto) (0-4) % Baso % (Auto) (0-2) % Lymph # (Auto) (1.2-4.9) X10*3/uL [place] # (Auto) (0.1-1.2) X10*3/uL Eos # (Auto) (0.0-0.4) X10*3/uL Baso # (Auto) (0.0-0.2) X10*3/uL Abs Immat Gran (auto) (0.00-0.03) X10*3/uL Absolute Neuts (auto) (2.0-8.3) x10*3/uL Absolute Nucleated RBC (0.0-0.012) X10*3/uL Nucleated RBC % (auto) (0.0-0.2) /100WBC PT (11.1-13.3) SEC INR (0.9-1.1) VBG pH (7.32-7.43) VBG pCO2 mmHg VBG pO2 mmHg VBG HCO3 (22-26) mmol/L VBG O2 Saturation % VBG Base Excess mmol/L Sodium (135-145) mmol/L Potassium (3.3-5.1) mmol/L Chloride (96-108) mmol/L Carbon Dioxide (22-29) mmol/L Anion Gap (12-20) BUN (9-16) mg/dL Creatinine (0.5-1.4) mg/dL Estim Creat Clear Calc Estimated GFR POC Glucose 231 H (60-115) mg/dL Random Glucose (60-115) mg/dL Lactic Acid (0.5-2.0) mmol/L Calcium (8.4-10.2) mg/dL Magnesium (1.6-2.6) mg/dL Total Bilirubin (0.0-1.0) mg/dL AST (5-37) U/L ALT (0-40) U/L Alkaline Phosphatase (39-117) U/L Ammonia (13-55) umol/L Troponin I High Sens (<3.5-35.0) ng/L B-Natriuretic Peptide (<100) pg/mL Total Protein (6.5-8.0) g/dL Albumin (3.5-5.0) g/dL Urine Color Urine Appearance Urine pH (5.0-9.0) Ur Specific [place] (1.005-1.025) Urine Protein (Neg-Trace) mg/dL Urine Glucose (UA) (Negative) mg/dL Urine Ketones (Negative) mg/dL Urine Blood (Negative) Urine Nitrite (Negative) Ur Leukocyte Esterase (Negative) Urine RBC (0-2) /HPF Urine WBC (0-5) /HPF Ur Squamous Epith Cells (0-2) /HPF Urine Bacteria (None Seen) Hyaline Casts (0-2) /LPF Stool Occult Blood (NEGATIVE) Urine Opiates Screen (Not Detect) Ur Buprenorphine Scrn (Not Detect) ng/mL Ur Oxycodone Screen (Not Detect) ng/mL Urine Methadone Screen (Not Detect) ng/mL Urine Fentanyl Screen (Not Detect) Ur Barbiturates Screen (Not Detect) Ur Phencyclidine Scrn (Not Detect) Ur Amphetamines Screen (Not Detect) U Benzodiazepines Scrn (Not Detect) Urine Cocaine Screen (Not Detect) U Marijuana (THC) Screen (Not Detect) Ethyl Alcohol mg/dL Influenza Type A (PCR) (Negative) Influenza Type B (PCR) (Negative) RSV RNA Qual (PCR) (Negative) SARS-CoV-2 RNA (RT-PCR) (Negative) Blood Type Antibody Screen Crossmatch Independent Interpretation I performed an independent interpretation of an: EKG (A-V dual paced rhythm, rate 60bpm, normal [place] interval, no change from prior), Plain X-Ray and CT Scan Interpretation: No pneumonia or CHF on CXR. No acute abnormalities on CT head. Radiology Impression Discussion of test interpretation with radiology: I have reviewed the radiologist's reading. Radiologist Impression: XR/XR chest 2V IMPRESSION: No acute abnormality. No evidence of pneumonia or congestive heart failure. CT/CT head/brain wo IV con IMPRESSION: No intracranial hemorrhage or other acute intracranial pathology compared to 11/04/2023. 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 External Record Review External record reviewed: Inpatient record, Office record and Outpatient record Critical Care Time Critical Care Time Critical Care Time: Yes Total Critical Care Time: 45 Attestation: I have personally provided critical care time exclusive of time spent on separately billable procedures. Time includes review of lab data, radiology results, discussion with consultants, and monitoring for potential decompensation. Intervention performed as documented. Discharge Plan Discharge Clinical Impression: Anemia, Hyperkalemia, Increased ammonia level Patient Disposition: Admitted As Inpatient
--- NOTE | 2024-01-25 11:02 | ECG_ITS ---
Test Reason : ams Blood Pressure : / mmHG Vent. Rate : 060 BPM Atrial Rate : 060 BPM P-R Int : 178 ms QRS Dur : 150 ms QT Int : 476 ms P-R-T Axes : -45 -43 119 degrees QTc Int : 476 ms AV dual-paced rhythm Abnormal ECG When compared with ECG of 09-NOV-2023 17:31, No significant change was found Referred By: Gertrude Dykes Electronically Signed By:ZAYDA SANDY MD
[2024-01-25 11:43] LABS: MANUAL DIFF FLAG NO
[2024-01-25 11:47] LABS: VBG Base Excess -7.8 mmol/L; VBG HCO3 17 mmol/L (22-26); VBG pCO2 33 mmHg; VBG pH 7.32 (7.32-7.43); VBG pO2 68 mmHg
[2024-01-25 11:47] LABS: Venous Blood Gas Refer to POC result
[2024-01-25 11:53] LABS: INTERNATIONAL NORM RATIO 1.2 (0.9-1.1)
[2024-01-25 11:53] LABS: Ammonia 83 umol/L (13-55)
[2024-01-25 11:57] LABS: Basophils Absolute Auto 0.1 X10*3/uL (0.0-0.2); Basophils Percent Auto 1.4 % (0-2); Eosinophils Absolute Auto 0.1 X10*3/uL (0.0-0.4); Eosinophils Percent Auto 2.8 % (0-4); Hematocrit 22.5 % (42.0-52.0); Imm Gran Abs Auto 0.02 X10*3/uL (0.00-0.03); Imm Gran Pct Auto 0.6 % (0.0-0.4); Lymphocytes Absolute Auto 0.4 X10*3/uL (1.2-4.9); Lymphocytes Percent Auto 11.6 % (20-40); Mean Corpuscular HGB Conc 30.7 g/dl (31.0-36.0); Mean Corpuscular Hemoglobin 27.8 pg (27.0-33.0); Mean Corpuscular Volume 90.7 fL (80.0-98.0); Mean Platelet Volume 11.6 fL (9.4-12.4); Monocytes Absolute Auto 0.5 X10*3/uL (0.1-1.2); Monocytes Percent Auto 13.3 % (2-11); Neutrophils Absolute Auto 2.5 x10*3/uL (2.0-8.3); Neutrophils Percent Auto 70.3 % (45-73); Red Blood Count 2.48 X10*6/uL (4.60-5.80); White Blood Count 3.5 X10*3/uL (4.8-10.8)
[2024-01-25 11:59] LABS: Platelet Count 98 X10*3/uL (160-400)
[2024-01-25 12:00] LABS: Hemoglobin 6.9 g/dl (14.0-18.0)
[2024-01-25 12:01] LABS: Lactic Acid 1.2 mmol/L (0.5-2.0)
[2024-01-25 12:01] LABS: Ethanol < 10 mg/dL
[2024-01-25 12:05] LABS: Alanine Aminotransferase 26 U/L (0-40); Alkaline Phosphatase 106 U/L (39-117); Anion Gap 13 (12-20); Aspartate Amino Transferase 23 U/L (5-37); Bilirubin Total 0.6 mg/dL (0.0-1.0); Blood Urea Nitrogen 59 mg/dL (9-16); Carbon Dioxide 18 mmol/L (22-29); Chloride 112 mmol/L (96-108); Estimated Glomerular Filt Rate 37; Glucose Random 275 mg/dL (60-115); Magnesium 2.2 mg/dL (1.6-2.6); Potassium 5.6 mmol/L (3.3-5.1); Sodium 137 mmol/L (135-145); Total Protein 5.7 g/dL (6.5-8.0)
[2024-01-25 12:07] LABS: B Type Natriuretic Peptide 202 pg/mL (<100)
[2024-01-25 12:12] LABS: Troponin-I High Sensitivity 8.5 ng/L (<3.5-35.0)
[2024-01-25 12:55] LABS: Influenza A PCR NEGATIVE (Negative); Influenza B PCR NEGATIVE (Negative); Resp Syncy Virus RNA Qual PCR NEGATIVE (Negative); SARS COV2 PCR INHOUSE NEGATIVE (Negative)
[2024-01-25 13:01] LABS: OBS Int Ctl Valid YES; OBS1 NEGATIVE (NEGATIVE)
[2024-01-25] MEDS: Sodium Zirconium Cyclosilicate 10 GM POWD.PACK PO (13:42)
[2024-01-25] MEDS: Lactulose 20 GM/30 ML SOLUTION 10 GM PO (13:42)
[2024-01-25] MEDS: Insulin Regular, Human 100 UNIT/ML 3 ML VIAL IVPUSH (13:53)
[2024-01-25 13:56] LABS: Appearance Urine Clear; Color Urine Yellow; Glucose Urine UA >=1000 mg/dL (Negative); Leukocyte Esterase Urine Negative (Negative); Nitrite Urine Negative (Negative); UMIC TRIGGER UACC YES; Urine Blood Negative (Negative); Urine Ketones Negative (Negative); Urine Protein Negative (Neg-Trace)
[2024-01-25 14:00] LABS: Glucose, Whole Blood 231 mg/dL (60-115)
[2024-01-25 14:06] LABS: Amphetamine Screen Urine Not Detected (Not Detect); Barbiturates, Urine Not Detected (Not Detect); Benzodiazepines Screen Urine Not Detected (Not Detect); Buprenorphine Scr Not Detected (Not Detect); Cannabinoid Screen Urine Not Detected (Not Detect); Cocaine Screen Urine Not Detected (Not Detect); Fentanyl, urine Not Detected (Not Detect); Methadone Screen, Urine Not Detected (Not Detect); Opiate Screen Urine Not Detected (Not Detect); Oxycodone Screen Urine Positive (Not Detect); Phencyclidine Screen Urine Not Detected (Not Detect)
[2024-01-25 14:11] LABS: Bacteria Urine None Seen (None Seen); RBC Urine 0-2 /HPF (0-2); Squamous Epithelial Cell Urine 0-2 /HPF (0-2); WBC Urine 0-5 /HPF (0-5)
--- NOTE | 2024-01-25 15:13 | P.HPHOSP_ITS ---
History of Present Illness Date of Service: 01/25/24 Attending physician on admission: Tai Carrion Chief Complaint: weakness,malaise,melena 78-year-old male with history of hepatic cirrhosis complicated by esophageal varices and ascites, insulin-dependent type 2 diabetes, diabetic 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, hypertension, hyperlipidemia, history of prostate cancer, ANUJA on CPAP, chronic iron deficiency anemia, CAD on DAPT, h/o endocarditis s/p bioprosthetic TAVR, s/p pacemaker presented [facility] for evaluation of weakness, malaise, fatigue that started this morning. He has chronic iron- deficiency anemia and has been requiring weekly transfusions. He is being considered for bone marrow aspiration/biopsy by Dr. Nielsen. He does report he had an episode of melena about 3 days ago but denies any recurrence, hematemesis, hematochezia. He was also felt to be confused while in the ED though is oriented x3 and remembers this provider's name on exam. He is noted to be slurring his speech slightly with some confusion as to medication administration. He states he was prescribed oxycodone but he is unclear on why he took this last night though then does endorse chronic pain in the back radiating into the left lower extremity. Denies any fevers, chills, abdominal pain, nausea, vomiting, diarrhea, urinary symptoms, palpitations, shortness of breath, lightheadedness, or chest pain. On arrival, blood pressure soft but no hypotension, otherwise stable. He is pancytopenia with WBC 3.5, consistent with baseline. H/H 6.9/22.5%, platelets 98. Renal function consistent with baseline. Mild hyperkalemia 5.8. Lactic acid 1.2. Ammonia level 83. CXR shows no acute cardiopulmonary abnormality. Head CT negative for any acute intracranial pathology but shows chronic microangiopathy. Urinalysis unremarkable. VBG reassuring with pH 7.32 low bicarb level at 17. PT 14.0, INR 1.2. Urine drug screen positive for oxycodone. Negative for influenza, COVID- 19, RSV. In the ED, given 5 units regular insulin, 10 g lactulose, started on gentle fluids and being transfused 2 units packed red blood cells. Review of Systems 2 Review of Systems: General: +malaise, +fatigue. No fevers, unintentional weight loss HEENT: No blurred vision, diplopia. No sore throat, nasal congestion, rhinorrhea, sinus pain, ear pain Cardiovascular: No chest pain, palpitations, or leg edema Respiratory: No shortness of breath, wheezing, cough GI: +melena. 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 Streptococcal bacteremia Fracture of left humerus History of prostate cancer Acute lower gastrointestinal bleeding COVID-19 vaccine series completed Hypertension Dyslipidemia Diabetic nephropathy associated with type 2 diabetes mellitus Diabetic 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 associated with type 2 diabetes mellitus 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 Diabetes type 2, uncontrolled Varices of esophagus determined by endoscopy Esophageal varices without bleeding KOEHLER (dyspnea on exertion) Chronic fatigue Iron deficiency anemia CAD (coronary artery disease) ANUJA on CPAP Prostate cancer Spinal stenosis On beta kayy at home IBS (irritable colon syndrome) Aortic stenosis HTN (hypertension) DMII (diabetes mellitus, type 2) Polyneuropathy GERD (gastroesophageal reflux disease) Family History Father CVD (cardiovascular disease) Past heart attack Mother CVD (cardiovascular disease) Brain cancer Heart problem Daughter Breast cancer Sister Breast cancer Son Alive and well Family/Other Myocardial infarction Liver cancer Surgical History S/P infectious endocarditis H/O cataract extraction Hx of endoscopy History of colonoscopy Hx of esophagogastroduodenoscopy Hx of colonoscopy History of surgery History of transurethral resection of prostate History of surgery History of heart artery stent Social History Household Members: Significant Other Household Members Other:: Myesha Housing: House Are you a primary child day care center worker to a significant other at home: No Do you presently have visiting nurse or other home services: No Alcohol intake: never Patient Tobacco Use Status: Never used Tobacco Smoked in Last 30 Days: No e-Cigarette/Vaping Use: Never Used Second Hand Smoke Exposure: No Use of substances other than those prescribed or required for medical reasons: No Advance Directives: Yes Advance Directives on File: Yes Advance Directives Date on File: 08/31/23 Do you have a plan to hurt others: No Plan service: No Current occupational status: retired Cognitive needs: No Hearing needs: No Vision needs: Yes Meds Allergies Allergy/AdvReac Type Severity Reaction Status Date / Time KARL Inhibitors Allergy Severe Angioedema Verified 01/25/24 11:15 dextran 40 [DEXTRAN 40] Allergy Intermediate tachycardia Verified 01/25/24 11:15 latex [LATEX] Allergy Mild BLISTERS Verified 01/25/24 11:15 lisinopril [From Zestril] Allergy Mild Unknown Verified 01/25/24 11:15 Iodinated Contrast Media Allergy Unknown UNKNOWN Verified 01/25/24 11:15 [CONTRAST,IV] Active Medications: Current Medications Acetaminophen (Acetaminophen 325 Mg Tablet) 650 mg PO Q6H PRN PRN Reason: Fever Acetaminophen (Acetaminophen 325 Mg Tablet) 650 mg PO Q6H PRN PRN Reason: Pain, Mild (Pain Scale 1-3) Acetaminophen (Acetaminophen 325 Mg Tablet) 650 mg PO Q6H PRN PRN Reason: Headache Calcium Carbonate (Calcium Carbonate 750 Mg Tab.Chew) 750 mg PO Q6H PRN PRN Reason: Heartburn Glucose (Glucose Gel 15 Gm Gel..Gram.) 15 gm PO Q15M PRN; Protocol PRN Reason: per Hypoglycemia Standing Ord. Octreotide Acetate 500 mcg/ (Sodium Chloride) 501 mls @ 50.1 mls/hr IVCONT .Q10H PANFILO Octreotide Acetate 500 mcg/ (Sodium Chloride) 501 mls @ 50.1 mls/hr IVCONT .Q10H PANFILO Ceftriaxone Sodium 1 gm/ (Sodium Chloride) 50 mls @ 100 mls/hr IV Q24H PANFILO Dextrose (D10) 250 mls @ 750 mls/hr IV Q15M PRN; Protocol PRN Reason: per Hypoglycemia Standing Ord. Insulin Human Lispro (Insulin Lispro 100 Unit/Ml 3 Ml Vial) 0 unit SUBCUT QIDACHS PANFILO; Protocol Magnesium Hydroxide (Milk Of Magnesia 30 Ml Oral.Susp) 30 ml PO DAILY PRN PRN Reason: Constipation Melatonin (Melatonin 3 Mg Tablet) 6 mg PO BEDTIME PRN PRN Reason: Insomnia Pantoprazole Sodium (Pantoprazole Sodium 40 Mg/10 Ml Vial) 40 mg IVPUSH BID@0630,1630 [facility] Polyethylene Glycol (Polyethylene Glycol 3350 17 Gm Powd.Pack) 17 gm PO DAILY PRN PRN Reason: Constipation Sodium Chloride (0.9 % Sodium Chloride Flush 3 Ml Syringe) 3 ml IVFLUSH QSHIFT PANFILO Home Medications ?Medication ?Instructions ?Recorded ?Confirmed ?Last Taken ?Type cyanocobalamin (vitamin B-12) 500 1,000 mcg PO BEDTIME 12/29/22 01/25/24 01/24/24 History mcg tablet ferrous sulfate 325 mg (65 mg 325 mg PO DAILY 04/29/23 01/25/24 01/24/24 History iron) tablet,delayed release dulaglutide 0.75 mg/0.5 mL 0.75 mg subcut MO 11/09/23 01/25/24 01/18/24 History subcutaneous pen injector (Trulicity) atorvastatin 80 mg tablet 40 mg PO BEDTIME 11/18/23 11/18/23 Unknown History Physical Exam 2 Vital Signs and Narrative: Vital Signs: Last Vital Signs Temp 98 F 01/25/24 14:37 Pulse 60 01/25/24 14:37 Resp 16 01/25/24 14:37 BP 102/39 L 01/25/24 14:37 Pulse Ox 99 01/25/24 14:37 O2 Del Method Room Air 01/25/24 14:37 BMI result Body Mass Index 27.4 Constitutional - Awake and Alert, No apparent distress Eyes - PERRLA, EOMI Cardiovascular - S1S2, RRR, 2+ ble edema Respiratory - Normal lung expansion, Normal respiratory effort, No respiratory distress, CTA bilaterally Gastrointestinal - NT / ND; +BS; No rebound or guarding. + asterixis Extremities - no calf tenderness bilaterally, no swelling Skin - Warm/Dry Neurological - Alert & oriented x3, CN II-XII in tact, 5/5 strength BUE and BLE Psychological - Appropriate affect Results Labs 01/25/24 11:33 01/25/24 11:32 Labs: Laboratory Results - last 24 hr 01/25/24 01/25/24 01/25/24 11:32 11:33 11:39 MCV 90.7 MCH 27.8 MCHC 30.7 L RDW 16.0 Plt Count 98 L MPV 11.6 Immature Gran % (Auto) 0.6 H Neut % (Auto) 70.3 Lymph % (Auto) 11.6 L [place] % (Auto) 13.3 H Eos % (Auto) 2.8 Baso % (Auto) 1.4 Lymph # (Auto) 0.4 L [place] # (Auto) 0.5 Eos # (Auto) 0.1 Baso # (Auto) 0.1 Abs Immat Gran (auto) 0.02 Absolute Neuts (auto) 2.5 Absolute Nucleated RBC 0.000 Nucleated RBC % (auto) 0.0 PT 14.0 H INR 1.2 H VBG pH VBG pCO2 VBG pO2 VBG HCO3 VBG O2 Saturation VBG Base Excess Anion Gap 13 Estim Creat Clear Calc 33.0 Estimated GFR 37 POC Glucose Random Glucose 275 H Lactic Acid 1.2 Calcium 8.0 L Magnesium 2.2 Total Bilirubin 0.6 AST 23 ALT 26 Alkaline Phosphatase 106 Ammonia 83 H Troponin I High Sens 8.5 B-Natriuretic Peptide 202 H Total Protein 5.7 L Albumin 3.0 L Urine Color Urine Appearance Urine pH Ur Specific [place] Urine Protein Urine Glucose (UA) Urine Ketones Urine Blood Urine Nitrite Ur Leukocyte Esterase Urine RBC Urine WBC Ur Squamous Epith Cells Urine Bacteria Hyaline Casts Stool Occult Blood Urine Opiates Screen Ur Buprenorphine Scrn Ur Oxycodone Screen Urine Methadone Screen Urine Fentanyl Screen Ur Barbiturates Screen Ur Phencyclidine Scrn Ur Amphetamines Screen U Benzodiazepines Scrn Urine Cocaine Screen U Marijuana (THC) Screen Ethyl Alcohol < 10 Influenza Type A (PCR) NEGATIVE Influenza Type B (PCR) NEGATIVE RSV RNA Qual (PCR) NEGATIVE SARS-CoV-2 RNA (RT-PCR) NEGATIVE Blood Type A Positive Antibody Screen NEGATIVE Crossmatch See Detail 01/25/24 01/25/24 01/25/24 11:40 12:56 13:45 MCV MCH MCHC RDW Plt Count MPV Immature Gran % (Auto) Neut % (Auto) Lymph % (Auto) [place] % (Auto) Eos % (Auto) Baso % (Auto) Lymph # (Auto) [place] # (Auto) Eos # (Auto) Baso # (Auto) Abs Immat Gran (auto) Absolute Neuts (auto) Absolute Nucleated RBC Nucleated RBC % (auto) PT INR VBG pH 7.32 VBG pCO2 33 VBG pO2 68 VBG HCO3 17 L VBG O2 Saturation 93.0 VBG Base Excess -7.8 Anion Gap Estim Creat Clear Calc Estimated GFR POC Glucose Random Glucose Lactic Acid Calcium Magnesium Total Bilirubin AST ALT Alkaline Phosphatase Ammonia Troponin I High Sens B-Natriuretic Peptide Total Protein Albumin Urine Color Yellow Urine Appearance Clear Urine pH 5.0 Ur Specific [place] 1.010 Urine Protein Negative Urine Glucose (UA) >=1000 H Urine Ketones Negative Urine Blood Negative Urine Nitrite Negative Ur Leukocyte Esterase Negative Urine RBC 0-2 Urine WBC 0-5 Ur Squamous Epith Cells 0-2 Urine Bacteria None Seen Hyaline Casts 3-5 Stool Occult Blood NEGATIVE Urine Opiates Screen Not Detected Ur Buprenorphine Scrn Not Detected Ur Oxycodone Screen Positive H Urine Methadone Screen Not Detected Urine Fentanyl Screen Not Detected Ur Barbiturates Screen Not Detected Ur Phencyclidine Scrn Not Detected Ur Amphetamines Screen Not Detected U Benzodiazepines Scrn Not Detected Urine Cocaine Screen Not Detected U Marijuana (THC) Screen Not Detected Ethyl Alcohol Influenza Type A (PCR) Influenza Type B (PCR) RSV RNA Qual (PCR) SARS-CoV-2 RNA (RT-PCR) Blood Type Antibody Screen Crossmatch 01/25/24 13:57 MCV MCH MCHC RDW Plt Count MPV Immature Gran % (Auto) Neut % (Auto) Lymph % (Auto) [place] % (Auto) Eos % (Auto) Baso % (Auto) Lymph # (Auto) [place] # (Auto) Eos # (Auto) Baso # (Auto) Abs Immat Gran (auto) Absolute Neuts (auto) Absolute Nucleated RBC Nucleated RBC % (auto) PT INR VBG pH VBG pCO2 VBG pO2 VBG HCO3 VBG O2 Saturation VBG Base Excess Anion Gap Estim Creat Clear Calc Estimated GFR POC Glucose 231 H Random Glucose Lactic Acid Calcium Magnesium Total Bilirubin AST ALT Alkaline Phosphatase Ammonia Troponin I High Sens B-Natriuretic Peptide Total Protein Albumin Urine Color Urine Appearance Urine pH Ur Specific [place] Urine Protein Urine Glucose (UA) Urine Ketones Urine Blood Urine Nitrite Ur Leukocyte Esterase Urine RBC Urine WBC Ur Squamous Epith Cells Urine Bacteria Hyaline Casts Stool Occult Blood Urine Opiates Screen Ur Buprenorphine Scrn Ur Oxycodone Screen Urine Methadone Screen Urine Fentanyl Screen Ur Barbiturates Screen Ur Phencyclidine Scrn Ur Amphetamines Screen U Benzodiazepines Scrn Urine Cocaine Screen U Marijuana (THC) Screen Ethyl Alcohol Influenza Type A (PCR) Influenza Type B (PCR) RSV RNA Qual (PCR) SARS-CoV-2 RNA (RT-PCR) Blood Type Antibody Screen Crossmatch Imaging Radiologist's Impressions: Impressions Chest X-Ray 01/25/24 11:50 IMPRESSION: No acute abnormality. No evidence of pneumonia or congestive heart failure. Head CT 01/25/24 11:59 IMPRESSION: No intracranial hemorrhage or other acute intracranial pathology compared to 11/04/2023. 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 Assessment and Plan (1) Hepatic encephalopathy: Status: Acute (2) Acute on chronic anemia: Status: Acute (3) Hyperkalemia: Status: Acute Plan 78-year-old male with history of hepatic cirrhosis complicated by esophageal varices and ascites, insulin-dependent type 2 diabetes, diabetic 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, hypertension, hyperlipidemia, history of prostate cancer, ANUJA on CPAP, chronic iron deficiency anemia, CAD on DAPT, h/o endocarditis s/p bioprosthetic TAVR, s/p pacemaker admitted for further management of hepatic encephalopathy, acute on chronic anemia with concern for UGIB. #Acute toxic metabolic encephalopathy related to hepatic encephalopathy -head CT negative for any acute intracranial abnormality. Ammonia level 83, positive asterixis on exam -initiate lactulose 20 g t.i.d., titrate to achieve 2-3 loose bowel movements per day -monitor mentation # acute on chronic anemia with concern for upper GI bleed -H/H 6.9/22.5%, transfuse 2 units packed red blood cells in the ED -background hepatic cirrhosis with history esophageal variceal banding -IV octreotide 50 mcg bolus then transitioned to drip at 50 per hour -IV PPI -IV ctx for prophylaxis -clear liquid diet -GI consult -follow h/h # acute hyperkalemia -given 5 units regular insulin, 10 g Lokelma in ed -hold spironolactone -follow electrolytes # hepatic cirrhosis complicated by esophageal varices, ascites -hold spironolactone due to above. 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 He also has hepatic encephalopathy requiring titration of lactulose and close monitoring of mentation which can not be achieved in less acute setting Quality Stroke Does the patient have a stroke diagnosis?: No VTE Prior VTE?: No VTE Risk Level:: Medical - moderate - high VTE Device Contraindication: N/A - Device Ordered VTE Drug Contraindication: Treatment Not Indicated
--- NOTE | 2024-01-25 15:21 | PHA.MEDREC ---
Addendum entered by Lee Mcdonnell [facility] 01/25/24 15:26: Novolog 2-25 units TID. Original Note: Pharmacy Consult ? Medication Reconciliation Pharmacy has completed the medication reconciliation. Patient was unable to confirm meds, only stated over the counter medications (vitamin b, iron). Called son and left voicemail, called daughter who stated no family could help with his medications. Confirmed medications based on pharmacy claims. Unsure, of insulin aspart dose.
[2024-01-25] MEDS: Pantoprazole Sodium 40 MG/10 ML VIAL IVPUSH (16:22)
[2024-01-25] MEDS: cefTRIAXone sodium 1 GM in 0.9 % Sodium Chloride 50 ML IV (16:22)
[2024-01-25] MEDS: Octreotide Acetate 100 MCG/ML AMPUL 50 MCG IVPUSH (16:22)
[2024-01-25] MEDS: Octreotide Acetate 500 MCG in 0.9 % Sodium Chloride 500 ML 50.1 MCG IVCONT (16:23)
[2024-01-25] MEDS: 0.9 % Sodium Chloride Flush 3 ML SYRINGE IVFLUSH ×2 (16:23→22:37)
[2024-01-25 16:38] LABS: Glucose, Whole Blood 143 mg/dL (60-115)
--- NOTE | 2024-01-25 17:40 | PC.NURSE ---
Patient had a large amount of kelly, money counted and brought for safe keeping at security.
[2024-01-25 20:30] LABS: Hematocrit 27.3 % (42.0-52.0); Hemoglobin 8.4 g/dl (14.0-18.0)
[2024-01-25 21:33] LABS: Glucose, Whole Blood 88 mg/dL (60-115)
[2024-01-25] MEDS: Bethanechol Chloride 25 MG TABLET PO (22:36)
[2024-01-25] MEDS: Lactulose 20 GM/30 ML SOLUTION PO (22:36)
[2024-01-25] MEDS: Cyanocobalamin (Vitamin B-12) 1,000 MCG TABLET 1000 MCG PO (22:36)
[2024-01-26] VITALS (10 sets, daily range): BP systolic 88–114; BP diastolic 39–53; PULSE 60–68; RESP 14–18; TEMP 36.6–37.6; O2SAT 93–96
[2024-01-26] MEDS: Octreotide Acetate 500 MCG in 0.9 % Sodium Chloride 500 ML 50.1 MCG IVCONT ×2 (02:37→12:02)
[2024-01-26] MEDS: Pantoprazole Sodium 40 MG/10 ML VIAL IVPUSH ×2 (06:17→16:55)
[2024-01-26 06:51] LABS: MANUAL DIFF FLAG NO
[2024-01-26 06:53] LABS: Basophils Absolute Auto 0.1 X10*3/uL (0.0-0.2); Basophils Percent Auto 1.3 % (0-2); Eosinophils Absolute Auto 0.1 X10*3/uL (0.0-0.4); Eosinophils Percent Auto 2.8 % (0-4); Hematocrit 26.7 % (42.0-52.0); Hemoglobin 8.4 g/dl (14.0-18.0); Imm Gran Abs Auto 0.01 X10*3/uL (0.00-0.03); Imm Gran Pct Auto 0.2 % (0.0-0.4); Lymphocytes Absolute Auto 0.5 X10*3/uL (1.2-4.9); Lymphocytes Percent Auto 10.5 % (20-40); Mean Corpuscular HGB Conc 31.5 g/dl (31.0-36.0); Mean Corpuscular Hemoglobin 28.1 pg (27.0-33.0); Mean Corpuscular Volume 89.3 fL (80.0-98.0); Mean Platelet Volume 11.2 fL (9.4-12.4); Monocytes Absolute Auto 0.5 X10*3/uL (0.1-1.2); Monocytes Percent Auto 10.9 % (2-11); Neutrophils Absolute Auto 3.4 x10*3/uL (2.0-8.3); Neutrophils Percent Auto 74.3 % (45-73); Red Blood Count 2.99 X10*6/uL (4.60-5.80); Red Cell Distribution Width 16.4 % (11.0-16.0); White Blood Count 4.6 X10*3/uL (4.8-10.8)
[2024-01-26 06:55] LABS: Platelet Count 88 X10*3/uL (160-400)
[2024-01-26 07:08] LABS: Alanine Aminotransferase 26 U/L (0-40); Albumin Level 2.9 g/dL (3.5-5.0); Alkaline Phosphatase 102 U/L (39-117); Anion Gap 13 (12-20); Aspartate Amino Transferase 27 U/L (5-37); Bilirubin Direct 0.3 mg/dL (0.0-0.5); Bilirubin Total 0.7 mg/dL (0.0-1.0); Blood Urea Nitrogen 51 mg/dL (9-16); Carbon Dioxide 16 mmol/L (22-29); Chloride 115 mmol/L (96-108); Creatinine Clr Calc Pharmacy 39.2; Estimated Glomerular Filt Rate 45; Glucose Random 87 mg/dL (60-115); Potassium 5.1 mmol/L (3.3-5.1); Sodium 139 mmol/L (135-145); Total Protein 5.3 g/dL (6.5-8.0)
[2024-01-26 07:13] LABS: Glucose, Whole Blood 90 mg/dL (60-115)
[2024-01-26] MEDS: 0.9 % Sodium Chloride Flush 3 ML SYRINGE IVFLUSH ×2 (08:42→16:54)
[2024-01-26] MEDS: carvediloL 6.25 MG TABLET PO (08:43)
[2024-01-26] MEDS: Ezetimibe 10 MG TABLET PO (08:43)
[2024-01-26] MEDS: Bumetanide 1 MG TABLET PO (08:43)
[2024-01-26] MEDS: Acetaminophen 325 MG TABLET 650 MG PO (08:43)
[2024-01-26] MEDS: Lactulose 20 GM/30 ML SOLUTION PO (08:44)
[2024-01-26] MEDS: Folic Acid 1 MG TABLET PO (08:44)
[2024-01-26] MEDS: Tamsulosin HCL 0.4 MG CAPSULE PO (08:44)
[2024-01-26] MEDS: Finasteride 5 MG TABLET PO (08:44)
[2024-01-26] MEDS: Ferrous Sulfate 324 MG TABLET.DR PO (08:44)
[2024-01-26] MEDS: Bethanechol Chloride 25 MG TABLET PO ×2 (08:44→23:11)
--- NOTE | 2024-01-26 10:54 | MHC.CM.PN ---
IMM 01/26/24, PT W/METABOLIC ENCEPHALOPATHY, GI BLEED/BLOOD LOSS ANEMIA, CM MET W/PT WHO DOES REPORT HE LIVES W/ WHO HAS DEMENTIA, PT REPORTS SHE IS DOING PRETTY WELL NOW AND DOESN'T THINK ANYONE NEEDS TO SEE HER HOWEVER PT STILL SEEMS NOT AT BASELINE AND COULDN'T FOCUS ON ANSWERING SOME QUESTIONS. PER PREVIOUS ADMITS PT WAS ANXIOUS TO GET HOME TO SHE HAS DEMENTIA SO CM DID CONTACT HCP SON DENISE TO MAKE SURE SOMEONE IS CHECKING IN ON PT'S . HCP/CON DENISE REPORTS HE IS AWARE PT IS HER AND DOES VERIFY THAT PT'S HAS ACTUALLY IMPROVED SHE IS NOW RECEIVING HER MEDS CONSISTENTLY AND THAT FAMILY IS CHECKING IN ON HER. DENISE ALSO REPORTS PT COMES IN FOR WEEKLY FOR TRANSFUSIONS (DULALA) EVERY THURSDAY HOWEVER BY THURSDAY HE IS VERY CONFUSED AGAIN AND DENISE BELIEVES HE MAY NEED TO INCREASE HOW OFTEN HE COMES IN, HE ALSO REPORTS PT IS SUPPOSED TO HAVE A BONE MARROW EXTRACTION HOWEVER IS NOT SURE IF THAT IS SCHEDULED OR NOT, HOSPITALIST MADE AWARE VIA [employer].
[2024-01-26 10:56] LABS: Glucose, Whole Blood 200 mg/dL (60-115)
[2024-01-26] MEDS: Insulin Lispro 100 UNIT/ML 3 ML VIAL SUBCUT (12:02)
--- NOTE | 2024-01-26 12:17 | PM.GICN ---
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 Patient reports taking a new medication yesterday (per documentation appears to be oxycodone) and since then has been feeling confused and more sleepy. Also describes lightheadedness and weakness. On presentation to the emergency room, he was noted to be anemic with hemoglobin of 6.9, down from his previous baseline of 7.5. Thrombocytopenia. INR 1.2. Labs with creatinine of 1.7, increased from 1.4 at the time of recent check in November. Patient has had chronic anemia for the last 6 months. Appears to be secondary to slow losses from bleeding from cirrhosis as well as radiation proctitis, and cystitis. Also seeing Hematology with consideration for bone marrow biopsy to rule out myelodysplastic syndrome. On bedside assessment, reports having 2-3 bowel movements in the preceding week that appeared black to him and were also slightly loose. No abdominal pain, or hematemesis reported by the patient. Albeit he does appear a bit confused on assessment. 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 Diabetes type 2, uncontrolled Varices of esophagus determined by endoscopy Esophageal varices without bleeding KOEHLER (dyspnea on exertion) Chronic fatigue Iron deficiency anemia CAD (coronary artery disease) ANUJA on CPAP Prostate cancer Spinal stenosis On beta kayy at home IBS (irritable colon syndrome) Aortic stenosis HTN (hypertension) DMII (diabetes mellitus, type 2) Polyneuropathy GERD (gastroesophageal reflux disease) Family History Family History Father CVD (cardiovascular disease) Past heart attack Mother CVD (cardiovascular disease) Brain cancer Heart problem Daughter Breast cancer Sister Breast cancer Son Alive and well Family/Other Myocardial infarction Liver cancer Surgical History Surgical History S/P infectious endocarditis H/O cataract extraction Hx of endoscopy History of colonoscopy Hx of esophagogastroduodenoscopy Hx of colonoscopy History of surgery History of transurethral resection of prostate History of surgery History of heart artery stent Social History Social History Household Members: Spouse Household Members Other:: Myesha Housing: House Are you a primary healthcare marketer to a significant other at home: No Do you presently have visiting nurse or other home services: Yes (RN 2 x a week) Alcohol intake: never Patient Tobacco Use Status: Never used Tobacco e-Cigarette/Vaping Use: Never Used Second Hand Smoke Exposure: No Advance Directives Date on File: 08/31/23 service: No Current occupational status: retired Cognitive needs: No Hearing needs: No Vision needs: Yes Meds Allergies Allergy/AdvReac Type Severity Reaction Status Date / Time KARL Inhibitors Allergy Severe Angioedema Verified 01/25/24 11:15 dextran 40 [DEXTRAN 40] Allergy Intermediate tachycardia Verified 01/25/24 11:15 latex [LATEX] Allergy Mild BLISTERS Verified 01/25/24 11:15 lisinopril [From Zestril] Allergy Mild Unknown Verified 01/25/24 11:15 Iodinated Contrast Media Allergy Unknown UNKNOWN Verified 01/25/24 11:15 [CONTRAST,IV] Active Medications: Current Medications Acetaminophen (Acetaminophen 325 Mg Tablet) 650 mg PO Q6H PRN PRN Reason: Fever Last Admin: 01/26/24 08:43 Dose: 650 mg Acetaminophen (Acetaminophen 325 Mg Tablet) 650 mg PO Q6H PRN PRN Reason: Pain, Mild (Pain Scale 1-3) Acetaminophen (Acetaminophen 325 Mg Tablet) 650 mg PO Q6H PRN PRN Reason: Headache Alprazolam (Alprazolam 0.5 Mg Tablet) 0.5 mg PO BID PRN PRN Reason: Anxiety Bethanechol Chloride (Bethanechol Chloride 25 Mg Tablet) 25 mg PO BID [facility] Last Admin: 01/26/24 08:44 Dose: 25 mg Bumetanide (Bumetanide 1 Mg Tablet) 1 mg PO DAILY [facility]; Protocol Last Admin: 01/26/24 08:43 Dose: 1 mg Calcium Carbonate (Calcium Carbonate 750 Mg Tab.Chew) 750 mg PO Q6H PRN PRN Reason: Heartburn Carvedilol (Carvedilol 6.25 Mg Tablet) 6.25 mg PO BID [facility]; Protocol Last Admin: 01/26/24 08:43 Dose: 6.25 mg Cyanocobalamin (Cyanocobalamin (Vitamin B-12) 1,000 Mcg Tablet) 1,000 mcg PO BEDTIME [facility] Last Admin: 01/25/24 22:36 Dose: 1,000 mcg Ezetimibe (Ezetimibe 10 Mg Tablet) 10 mg PO DAILY [facility] Last Admin: 01/26/24 08:43 Dose: 10 mg Ferrous Sulfate (Ferrous Sulfate 324 Mg Tablet.Dr) 324 mg PO DAILY [facility] Last Admin: 01/26/24 08:44 Dose: 324 mg Finasteride (Finasteride 5 Mg Tablet) 5 mg PO DAILY [facility] Last Admin: 01/26/24 08:44 Dose: 5 mg Folic Acid (Folic Acid 1 Mg Tablet) 1 mg PO DAILY [facility] Last Admin: 01/26/24 08:44 Dose: 1 mg Glucose (Glucose Gel 15 Gm Gel..Gram.) 15 gm PO Q15M PRN; Protocol PRN Reason: per Hypoglycemia Standing Ord. Octreotide Acetate 500 mcg/ (Sodium Chloride) 501 mls @ 50.1 mls/hr IVCONT .Q10H [facility] Last Admin: 01/26/24 12:02 Dose: 50 mcg/hr, 50.1 mls/hr Ceftriaxone Sodium 1 gm/ (Sodium Chloride) 50 mls @ 100 mls/hr IV Q24H [facility] Last Infusion: 01/25/24 17:02 Dose: Infused Dextrose (D10) 250 mls @ 750 mls/hr IV Q15M PRN; Protocol PRN Reason: per Hypoglycemia Standing Ord. Insulin Glargine (Insulin Glargine,Hum.Rec.Anlog 100 Unit/Ml 10 Ml Vial) 6 unit SUBCUT BEDTIME [facility] Last Admin: 01/25/24 22:36 Dose: Not Given Insulin Human Lispro (Insulin Lispro 100 Unit/Ml 3 Ml Vial) 0 unit SUBCUT QIDACHS [facility]; Protocol Last Admin: 01/26/24 12:02 Dose: 4 unit Lactulose (Lactulose 20 Gm/30 Ml Solution) 30 gm PO TID [facility] Magnesium Hydroxide (Milk Of Magnesia 30 Ml Oral.Susp) 30 ml PO DAILY PRN PRN Reason: Constipation Melatonin (Melatonin 3 Mg Tablet) 6 mg PO BEDTIME PRN PRN Reason: Insomnia Pantoprazole Sodium (Pantoprazole Sodium 40 Mg/10 Ml Vial) 40 mg IVPUSH BID@0630,1630 [facility] Last Admin: 01/26/24 06:17 Dose: 40 mg Polyethylene Glycol (Polyethylene Glycol 3350 17 Gm Powd.Pack) 17 gm PO DAILY PRN PRN Reason: Constipation Sodium Chloride (0.9 % Sodium Chloride Flush 3 Ml Syringe) 3 ml IVFLUSH QSHIFT [facility] Last Admin: 01/26/24 08:42 Dose: 3 ml Tamsulosin HCl (Tamsulosin Hcl 0.4 Mg Capsule) 0.4 mg PO DAILY [facility] Last Admin: 01/26/24 08:44 Dose: 0.4 mg Home Medications ?Medication ?Instructions ?Recorded ?Confirmed ?Last Taken ?Type cyanocobalamin (vitamin B-12) 500 1,000 mcg PO BEDTIME 12/29/22 01/25/24 01/24/24 History mcg tablet ferrous sulfate 325 mg (65 mg 325 mg PO DAILY 04/29/23 01/25/24 01/24/24 History iron) tablet,delayed release dulaglutide 0.75 mg/0.5 mL 0.75 mg subcut MO 11/09/23 01/25/24 01/18/24 History subcutaneous pen injector (Trulicity) atorvastatin 80 mg tablet 40 mg PO BEDTIME 11/18/23 11/18/23 Unknown History Physical Exam Vital Signs: Vital Signs: Last Vital Signs Temp 99.4 F 01/26/24 11:08 Pulse 60 01/26/24 11:08 Resp 18 01/26/24 11:08 BP 88/39 L 01/26/24 11:08 Pulse Ox 95 01/26/24 11:08 O2 Del Method Room Air 01/26/24 11:08 BMI result Body Mass Index 27.4 Frail elderly gent Nonicteric No overt respiratory distress Abdomen soft, distended, shifting dullness to percussion Mild lower extremity edema Alert and oriented x2, asterixis +++ Results Labs 01/26/24 12:32 01/26/24 06:29 Labs: Short CBC 01/25/24 01/26/24 Range/Units 20:18 06:29 WBC 4.6 L (4.8-10.8) X10*3/uL Hgb 8.4 L D 8.4 L (14.0-18.0) g/dl Hct 27.3 L D 26.7 L (42.0-52.0) % Plt Count 88 L (160-400) X10*3/uL BMP 01/26/24 06:29 Sodium 139 Potassium 5.1 Chloride 115 H Carbon Dioxide 16 L BUN 51 H Creatinine 1.50 H Calcium 8.0 L Liver Function 01/26/24 Range/Units 06:29 Total Bilirubin 0.7 (0.0-1.0) mg/dL Direct Bilirubin 0.3 (0.0-0.5) mg/dL AST 27 (5-37) U/L ALT 26 (0-40) U/L Alkaline Phosphatase 102 (39-117) U/L Albumin 2.9 L (3.5-5.0) g/dL Urine 01/25/24 Range/Units 13:45 Urine Color Yellow Urine Appearance Clear Urine pH 5.0 (5.0-9.0) Ur Specific [place] 1.010 (1.005-1.025) Urine Protein Negative (Neg-Trace) mg/dL Urine Glucose (UA) >=1000 H (Negative) mg/dL Assessment and Plan (1) Acute on chronic anemia: Status: Acute (2) Hepatic encephalopathy: Status: Acute (3) Esophageal varices in cirrhosis: Status: Acute (4) Decompensated hepatic cirrhosis: Status: Acute (5) Ascites: Status: Acute Plan Decomp metALD cirrhosis -- MELD-Na 13 -- Grade III HE and ascites on exam -- CKD vs type 2 HRS Acute on chronic anemia -- likely 2/2 blood loss -- r/o MDS Overall presentation consistent with acute on chronic anemia. To note, patient is status post 1 unit transfusion last week as well in Hematology office. Presented with hemoglobin of 6.9 with reported history of melena. Has history of esophageal varices requiring banding and those will need to be evaluated for again. Low suspicion for lower GI bleed at this time. Currently appears to have ascites and hepatic encephalopathy on exam, which will need to be optimized before proceeding with endoscopy. Plan: - maintain at least 2 peripheral IV access at all times - monitor CBC b.i.d. - transfuse PRBC for hemoglobin less than 7, avoid over transfusing as that may worsen portal hypertension - agree with IV ppi, octreotide and ceftriaxone - iron, B12 and folate studies ordered (has hx of pernicious anemia and MCV is normocytic) - increase lactulose to 30 gm TID for goal 3-4 BMs, can be descalated to 20gm once encephalopathy improves - add rifaximin 550 BID - US Abd with doppler to r/o i) ascites, ii) PVT, iii) HCC screening - if ascites present pls obtain a DIAGNOSTIC tap not to exceed 2L. Send for cell count, culture, cytology, albumin and total protein. - avoid nephrotoxins and diuretics - EGD tentatively booked for tmrw - can have clears today. NPO after MN. - daily MELD labs - pt also due for colo for hx of polyps and anemia, which can be pursued as OP pending clinical course. Thank you for allowing me to participate in his care. Please do not hesitate to reach out for any questions or concerns. Procedures Date of Service Date of Service: 01/26/24
[2024-01-26 12:45] LABS: Hematocrit 24.5 % (42.0-52.0); Hemoglobin 7.8 g/dl (14.0-18.0)
[2024-01-26] MEDS: Albumin Human 25 % 100 ML IV ×2 (12:49→18:14)
[2024-01-26] MEDS: 0.9 % Sodium Chloride 500 ML 250 ML IVCONT (12:49)
--- NOTE | 2024-01-26 15:01 | P.PNIM_ITS ---
Subjective Subjective Date of Service: 01/26/24 Interval History: hypotension Review of Systems feels tired. no fever or chills denies any sunil bleeding Physical Exam 2 Vital Signs: Vital Signs: Last Vital Signs Temp 98.6 F 01/26/24 14:59 Pulse 64 01/26/24 14:59 Resp 18 01/26/24 14:59 BP 89/44 L 01/26/24 14:59 Pulse Ox 96 01/26/24 14:59 O2 Del Method Room Air 01/26/24 14:59 BMI result Body Mass Index 27.4 Appearance: Alert.? Oriented X3.? cvs: rrr, [id number]. res: clear to auscultation ,no rhonchii or wheezing abd: no rebound or guarding ,nt, bs present. ext pulses present , no cyanosis . neuro: axo3 , nonfocal. Objective Data Active Medications Acetaminophen (Acetaminophen 325 Mg Tablet) 650 mg PO Q6H PRN PRN Reason: Fever Last Admin: 01/26/24 08:43 Dose: 650 mg Documented By: JYOTI Acetaminophen (Acetaminophen 325 Mg Tablet) 650 mg PO Q6H PRN PRN Reason: Pain, Mild (Pain Scale 1-3) Acetaminophen (Acetaminophen 325 Mg Tablet) 650 mg PO Q6H PRN PRN Reason: Headache Alprazolam (Alprazolam 0.5 Mg Tablet) 0.5 mg PO BID PRN PRN Reason: Anxiety Bethanechol Chloride (Bethanechol Chloride 25 Mg Tablet) 25 mg PO BID [facility] Last Admin: 01/26/24 08:44 Dose: 25 mg Documented By: JYOTI Bumetanide (Bumetanide 1 Mg Tablet) 1 mg PO DAILY [facility]; Protocol Last Admin: 01/26/24 08:43 Dose: 1 mg Documented By: JYOTI Calcium Carbonate (Calcium Carbonate 750 Mg Tab.Chew) 750 mg PO Q6H PRN PRN Reason: Heartburn Cyanocobalamin (Cyanocobalamin (Vitamin B-12) 1,000 Mcg Tablet) 1,000 mcg PO BEDTIME [facility] Last Admin: 01/25/24 22:36 Dose: 1,000 mcg Documented By: SAVAGE Ezetimibe (Ezetimibe 10 Mg Tablet) 10 mg PO DAILY [facility] Last Admin: 01/26/24 08:43 Dose: 10 mg Documented By: JYOTI Ferrous Sulfate (Ferrous Sulfate 324 Mg Tablet.) 324 mg PO DAILY [facility] Last Admin: 01/26/24 08:44 Dose: 324 mg Documented By: JYOTI Finasteride (Finasteride 5 Mg Tablet) 5 mg PO DAILY [facility] Last Admin: 01/26/24 08:44 Dose: 5 mg Documented By: JYOTI Folic Acid (Folic Acid 1 Mg Tablet) 1 mg PO DAILY [facility] Last Admin: 01/26/24 08:44 Dose: 1 mg Documented By: JYOTI Glucose (Glucose Gel 15 Gm Gel..Gram.) 15 gm PO Q15M PRN; Protocol PRN Reason: per Hypoglycemia Standing Ord. Octreotide Acetate 500 mcg/ (Sodium Chloride) 501 mls @ 50.1 mls/hr IVCONT .Q10H [facility] Last Infusion: 01/26/24 13:52 Dose: 0 mcg/hr, 0 mls/hr Documented By: JYOTI Ceftriaxone Sodium 1 gm/ (Sodium Chloride) 50 mls @ 100 mls/hr IV Q24H [facility] Last Infusion: 01/25/24 17:02 Dose: Infused Documented By: MICHAEL Dextrose (D10) 250 mls @ 750 mls/hr IV Q15M PRN; Protocol PRN Reason: per Hypoglycemia Standing Ord. Albumin Human (Kedbumin 25 %) 100 mls @ 100 mls/hr IV Q6H [facility] Stop: 01/27/24 07:44 Last Infusion: 01/26/24 14:09 Dose: Infused Documented By: JYOTI Insulin Glargine (Insulin Glargine,Hum.Rec.Anlog 100 Unit/Ml 10 Ml Vial) 6 unit SUBCUT BEDTIME [facility] Last Admin: 01/25/24 22:36 Dose: Not Given Documented By: SAVAGE Non-Admin Reason: hold per Insulin Human Lispro (Insulin Lispro 100 Unit/Ml 3 Ml Vial) 0 unit SUBCUT QIDACHS [facility]; Protocol Last Admin: 01/26/24 12:02 Dose: 4 unit Documented By: JYOTI Lactulose (Lactulose 20 Gm/30 Ml Solution) 30 gm PO TID [facility] Last Admin: 01/26/24 14:58 Dose: Not Given Documented By: JYOTI Non-Admin Reason: NPO Magnesium Hydroxide (Milk Of Magnesia 30 Ml Oral.Susp) 30 ml PO DAILY PRN PRN Reason: Constipation Melatonin (Melatonin 3 Mg Tablet) 6 mg PO BEDTIME PRN PRN Reason: Insomnia Pantoprazole Sodium (Pantoprazole Sodium 40 Mg/10 Ml Vial) 40 mg IVPUSH BID@0630,1630 [facility] Last Admin: 01/26/24 06:17 Dose: 40 mg Documented By: SAVAGE Polyethylene Glycol (Polyethylene Glycol 3350 17 Gm Powd.Pack) 17 gm PO DAILY PRN PRN Reason: Constipation Sodium Chloride (0.9 % Sodium Chloride Flush 3 Ml Syringe) 3 ml IVFLUSH QSHIFT [facility] Last Admin: 01/26/24 08:42 Dose: 3 ml Documented By: JYOTI Tamsulosin HCl (Tamsulosin Hcl 0.4 Mg Capsule) 0.4 mg PO DAILY [facility] Last Admin: 01/26/24 08:44 Dose: 0.4 mg Documented By: JYOTI Labs 01/26/24 12:32 01/26/24 06:29 Labs: Laboratory Results - last 24 hr 01/25/24 01/25/24 01/25/24 11:39 16:21 21:28 MCV MCH MCHC RDW Plt Count MPV Immature Gran % (Auto) Neut % (Auto) Lymph % (Auto) [place] % (Auto) Eos % (Auto) Baso % (Auto) Lymph # (Auto) [place] # (Auto) Eos # (Auto) Baso # (Auto) Abs Immat Gran (auto) Absolute Neuts (auto) Absolute Nucleated RBC Nucleated RBC % (auto) Anion Gap Estim Creat Clear Calc Estimated GFR POC Glucose 143 H 88 Random Glucose Calcium Total Bilirubin Direct Bilirubin AST ALT Alkaline Phosphatase Total Protein Albumin Blood Type A Positive Antibody Screen NEGATIVE Crossmatch See Detail 01/26/24 01/26/24 01/26/24 06:29 07:08 10:45 MCV 89.3 MCH 28.1 MCHC 31.5 RDW 16.4 H Plt Count 88 L MPV 11.2 Immature Gran % (Auto) 0.2 Neut % (Auto) 74.3 H Lymph % (Auto) 10.5 L [place] % (Auto) 10.9 Eos % (Auto) 2.8 Baso % (Auto) 1.3 Lymph # (Auto) 0.5 L [place] # (Auto) 0.5 Eos # (Auto) 0.1 Baso # (Auto) 0.1 Abs Immat Gran (auto) 0.01 Absolute Neuts (auto) 3.4 Absolute Nucleated RBC 0.000 Nucleated RBC % (auto) 0.0 Anion Gap 13 Estim Creat Clear Calc 39.2 Estimated GFR 45 POC Glucose 90 200 H Random Glucose 87 Calcium 8.0 L Total Bilirubin 0.7 Direct Bilirubin 0.3 AST 27 ALT 26 Alkaline Phosphatase 102 Total Protein 5.3 L Albumin 2.9 L Blood Type Antibody Screen Crossmatch Microbiology Microbiology Results: Microbiology 01/25/24 11:32 Blood Culture - Preliminary Blood - Venous No growth after 24 hours. 01/25/24 11:33 Blood Culture - Preliminary Blood - Venous No growth after 24 hours. Assessment and Plan (1) Decompensated hepatic cirrhosis: Status: Acute (2) Hypotension: Status: Acute Plan 78-year-old male with history of hepatic cirrhosis complicated by esophageal varices and ascites, insulin-dependent type 2 diabetes, diabetic 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, hypertension, hyperlipidemia, history of prostate cancer, ANUJA on CPAP, chronic iron deficiency anemia, CAD on DAPT, h/o endocarditis s/p bioprosthetic TAVR, s/p pacemaker admitted for further management of hepatic encephalopathy, acute on chronic anemia with concern for UGIB. Acute toxic metabolic encephalopathy related to hepatic encephalopathy head CT negative for any acute intracranial abnormality. Ammonia level 83 mental status somewhat improving has 2 bm's since yesterday as per patient. continue lactulose 30 g t.i.d., titrate to achieve 2-3 loose bowel movements per day acute on chronic anemia with concern for upper GI bleed H/H 6.9/22.5%, s/p 2 units prbc -improved to 8.4 ,now trending down to 7.8 background hepatic cirrhosis with history esophageal variceal banding npo continue IV octreotide 50 mcg bolus then transitioned to drip at 50 per hour, PPI,IV ctx for prophylaxis. Hypotension(mulitfactorial -anemia ,bp meds ,low albumin) hold coreg, bumex ,give ns 250 ml bolus,added 1 prbc ,midodrine. moniter h/h acute hyperkalemia -given 5 units regular insulin, 10 g Lokelma in ed -hold spironolactone seems improved. hepatic cirrhosis complicated by esophageal varices, ascites -hold spironolactone due to above. Continue bumex npo insulin-dependent type 2 diabetes fs flactuating 90-200's -POC glucose, advance to diabetic diet, admelog on sliding scale CAD/HLD-hold ASA due to above last cardiac cath with PCI 01/2022 continue statin, bb, zetia BPH-continue tamsulosin, finasteride diabetic 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-hold gabapentin given sedation/encephalopathy ANUJA on CPAP-CPAP bedtime h/o endocarditis with H/O strep bacteremia 01/2023 -Follows with [facility] ID, had been on [facility] abx but these have been discontinued DVT prophylaxis-compression Full code Patient requires inpatient stay for further management of acute on chronic blood loss anemia requiring transfusion, cardic monitoring, and telemetry. He also has hepatic encephalopathy requiring titration of lactulose and close monitoring of mentation which can not be achieved in less acute setting added Icu eval . Quality Stroke Does the patient have a stroke diagnosis?: No VTE Prior VTE?: No VTE Risk Level:: Medical - moderate - high VTE Device Contraindication: N/A - Device Ordered VTE Drug Contraindication: Treatment Not Indicated
[2024-01-26] MEDS: cefTRIAXone sodium 1 GM in 0.9 % Sodium Chloride 50 ML IV (15:16)
[2024-01-26 16:02] LABS: Glucose, Whole Blood 100 mg/dL (60-115)
[2024-01-26 16:36] LABS: Iron 27 mcg/dL (45-160); Percent Iron Saturation 9 % (15-50); Total Iron Binding Capacity 311 mcg/dL (228-428); Unsaturated Iron Binding 284 ug/dL
[2024-01-26] MEDS: Midodrine HCl 10 MG TABLET PO (16:50)
[2024-01-26 16:52] LABS: Ferritin 22 ng/mL (20-250)
[2024-01-26] MEDS: 0.9 % Sodium Chloride 1,000 ML 500 ML IVCONT (16:57)
[2024-01-26 17:05] LABS: Folate 15.4 ng/mL (> or = 4.0); Vitamin B12 1389 pg/mL (200-900)
[2024-01-26 21:16] LABS: Hematocrit 24.4 % (42.0-52.0)
[2024-01-26 21:17] LABS: Glucose, Whole Blood 81 mg/dL (60-115)
[2024-01-26] MEDS: ALPRAZolam 0.5 MG TABLET PO (23:11)
[2024-01-26] MEDS: Insulin Glargine,Hum.rec.anlog 100 UNIT/ML 10 ML VIAL 6 UNIT SUBCUT (23:11)
[2024-01-26] MEDS: Cyanocobalamin (Vitamin B-12) 1,000 MCG TABLET 1000 MCG PO (23:11)
[2024-01-27] VITALS (13 sets, daily range): BP systolic 103–148; BP diastolic 47–67; PULSE 60–87; RESP 16–20; TEMP 36.8–37.7; O2SAT 92–97; BMI 27.4
[2024-01-27] MEDS: Albumin Human 25 % 100 ML IV ×4 (00:06→18:37)
[2024-01-27] MEDS: Octreotide Acetate 500 MCG in 0.9 % Sodium Chloride 500 ML 50.1 MCG IVCONT ×3 (00:06→18:30)
[2024-01-27] MEDS: Dextrose 5 % and 0.9 % NaCl 1,000 ML 50 ML IVCONT ×2 (00:13→18:41)
[2024-01-27] MEDS: Pantoprazole Sodium 40 MG/10 ML VIAL IVPUSH (05:56)
[2024-01-27 06:32] LABS: Hematocrit 24.8 % (42.0-52.0); Hemoglobin 7.8 g/dl (14.0-18.0)
[2024-01-27 06:45] LABS: Ammonia 76 umol/L (13-55)
[2024-01-27 06:49] LABS: Lactate Dehydrogenase 185 U/L (118-273)
[2024-01-27 07:06] LABS: Glucose, Whole Blood 94 mg/dL (60-115)
[2024-01-27] MEDS: Finasteride 5 MG TABLET PO (08:14)
[2024-01-27] MEDS: Cyanocobalamin (Vitamin B-12) 1,000 MCG/ML VIAL 1000 MCG IM (08:14)
[2024-01-27] MEDS: Ferrous Sulfate 324 MG TABLET.DR PO (08:14)
[2024-01-27] MEDS: Bumetanide 1 MG TABLET PO (08:14)
[2024-01-27] MEDS: Folic Acid 1 MG TABLET PO (08:14)
[2024-01-27] MEDS: Bethanechol Chloride 25 MG TABLET PO (08:14)
[2024-01-27] MEDS: Ezetimibe 10 MG TABLET PO (08:14)
[2024-01-27] MEDS: Tamsulosin HCL 0.4 MG CAPSULE PO (08:14)
[2024-01-27] MEDS: 0.9 % Sodium Chloride Flush 3 ML SYRINGE IVFLUSH ×2 (08:15→18:35)
[2024-01-27] MEDS: Lactulose 20 GM/30 ML SOLUTION 30 GM PO (08:15)
[2024-01-27] MEDS: Acetaminophen 1,000 MG/100 ML PIGGYBACK 400 MG IV (09:49)
--- NOTE | 2024-01-27 10:36 | MHC.CM.PN ---
EMR REVIEWED, PT NPO SINCE MIDNIGHT FOR PENDING ENDOSCOPY, PT REMAINS ANEMIC, ENCEPHALOPATHY IMPROVING, NO PPLAN FOR DC AT THIS TIME, WILL LIKELY NEED P.T. FOR DISPO. CM WILL CONT TO FOLLOW DC NEEDS.
[2024-01-27 11:02] LABS: Glucose, Whole Blood 123 mg/dL (60-115)
[2024-01-27 13:07] LABS: Lactate Dehydrogenase 192 U/L (118-273)
--- NOTE | 2024-01-27 13:27 | PC.NURSE ---
report received from overnight RN, senior media director per NOV. Pt washed and OOB to chair, states he feels weaker than normal today. 1 unit of PRBC started per MD orders. Pt transferred to preop before blood transfusion finished, preop RN communicated charting in TAR will be completed by staff in preop. This RN called blood bank to confirm plan.
--- NOTE | 2024-01-27 14:34 | MHC.SHP ---
Pre-Procedural Eval Section A - 24 Hr Update-Section A only Date of Service: 01/27/24 The patient is an INPATIENT: Yes The patient has been examined within 24 hours of the surgical procedure. The History & Physical has been completed within 30 days and I have reviewed it.: Yes Section B - Complete if H&P > 30 days Chief Complaint: hepatic encephalopathy,gi bleed, blood loss anemia Allergies: Allergies Allergy/AdvReac Type Severity Reaction Status Date / Time KARL Inhibitors Allergy Severe Angioedema Verified 01/25/24 11:15 dextran 40 [DEXTRAN 40] Allergy Intermediate tachycardia Verified 01/25/24 11:15 latex [LATEX] Allergy Mild BLISTERS Verified 01/25/24 11:15 lisinopril [From Zestril] Allergy Mild Unknown Verified 01/25/24 11:15 Iodinated Contrast Media Allergy Unknown UNKNOWN Verified 01/25/24 11:15 [CONTRAST,IV] Plan Diagnosis/Plan: Unchanged I have reviewed the history and physical and performed a pertinent physical examination on my patient. No changes have occurred unless specified. Time Spent With Patient Time: Total time managing care of this patient today ____ minutes.
--- NOTE | 2024-01-27 15:06 | HO.PM.IMPN ---
Subjective Subjective Date of Service: 01/27/24 Interval History: anemia ,ascitis Review of Systems denies ant abd pain or new gross bleeding no fever or chills Physical Exam Vital Signs: Vital Signs: Last Vital Signs Temp 98.2 F 01/27/24 13:38 Pulse 73 01/27/24 13:38 Resp 16 01/27/24 13:38 BP 124/47 L 01/27/24 13:38 Pulse Ox 97 01/27/24 13:38 O2 Del Method Room Air 01/27/24 13:38 BMI result Body Mass Index 27.4 Appearance: Alert.? Oriented X3.? cvs: rrr, [id number]. res: clear to auscultation ,no rhonchii or wheezing abd: no rebound or guarding ,nt, bs present. ext pulses present , no cyanosis . neuro: axo3 , nonfocal. Objective Data Active Medications Acetaminophen (Acetaminophen 325 Mg Tablet) 650 mg PO Q6H PRN PRN Reason: Fever Last Admin: 01/26/24 08:43 Dose: 650 mg Documented By: JYOTI Acetaminophen (Acetaminophen 325 Mg Tablet) 650 mg PO Q6H PRN PRN Reason: Pain, Mild (Pain Scale 1-3) Acetaminophen (Acetaminophen 325 Mg Tablet) 650 mg PO Q6H PRN PRN Reason: Headache Alprazolam (Alprazolam 0.5 Mg Tablet) 0.5 mg PO BID PRN PRN Reason: Anxiety Last Admin: 01/26/24 23:11 Dose: 0.5 mg Documented By: RORO Bethanechol Chloride (Bethanechol Chloride 25 Mg Tablet) 25 mg PO BID [facility] Last Admin: 01/27/24 08:14 Dose: 25 mg Documented By: DOMENIC Bumetanide (Bumetanide 1 Mg Tablet) 1 mg PO DAILY [facility]; Protocol Last Admin: 01/27/24 08:14 Dose: 1 mg Documented By: DOMENIC Calcium Carbonate (Calcium Carbonate 750 Mg Tab.Chew) 750 mg PO Q6H PRN PRN Reason: Heartburn Cyanocobalamin (Cyanocobalamin (Vitamin B-12) 1,000 Mcg Tablet) 1,000 mcg PO BEDTIME [facility] Last Admin: 01/26/24 23:11 Dose: 1,000 mcg Documented By: RORO Cyanocobalamin (Cyanocobalamin (Vitamin B-12) 1,000 Mcg/Ml Vial) 1,000 mcg IM DAILY [facility] Last Admin: 01/27/24 08:14 Dose: 1,000 mcg Documented By: DOMENIC Ezetimibe (Ezetimibe 10 Mg Tablet) 10 mg PO DAILY [facility] Last Admin: 01/27/24 08:14 Dose: 10 mg Documented By: DOMENIC Ferrous Sulfate (Ferrous Sulfate 324 Mg Tablet.Dr) 324 mg PO DAILY [facility] Last Admin: 01/27/24 08:14 Dose: 324 mg Documented By: DOMENIC Finasteride (Finasteride 5 Mg Tablet) 5 mg PO DAILY [facility] Last Admin: 01/27/24 08:14 Dose: 5 mg Documented By: DOMENIC Folic Acid (Folic Acid 1 Mg Tablet) 1 mg PO DAILY [facility] Last Admin: 01/27/24 08:14 Dose: 1 mg Documented By: DOMENIC Glucose (Glucose Gel 15 Gm Gel..Gram.) 15 gm PO Q15M PRN; Protocol PRN Reason: per Hypoglycemia Standing Ord. Octreotide Acetate 500 mcg/ (Sodium Chloride) 501 mls @ 50.1 mls/hr IVCONT .Q10H [facility] Last Admin: 01/27/24 08:15 Dose: 50 mcg/hr, 50.1 mls/hr Documented By: DOMENIC Ceftriaxone Sodium 1 gm/ (Sodium Chloride) 50 mls @ 100 mls/hr IV Q24H [facility] Last Infusion: 01/26/24 16:58 Dose: Infused Documented By: MATT Dextrose (D10) 250 mls @ 750 mls/hr IV Q15M PRN; Protocol PRN Reason: per Hypoglycemia Standing Ord. Dextrose/Sodium Chloride (D5ns) 1,000 mls @ 50 mls/hr IVCONT .Q20H [facility] Last Admin: 01/27/24 00:13 Dose: 50 mls/hr Documented By: RORO Insulin Glargine (Insulin Glargine,Hum.Rec.Anlog 100 Unit/Ml 10 Ml Vial) 6 unit SUBCUT BEDTIME [facility] Last Admin: 01/26/24 23:11 Dose: 6 unit Documented By: RORO Insulin Human Lispro (Insulin Lispro 100 Unit/Ml 3 Ml Vial) 0 unit SUBCUT QIDACHS [facility]; Protocol Last Admin: 01/27/24 11:03 Dose: Not Given Documented By: DOMENIC Non-Admin Reason: No Insulin Coverage Lactulose (Lactulose 20 Gm/30 Ml Solution) 30 gm PO TID [facility] Last Admin: 01/27/24 14:45 Dose: Not Given Documented By: DOMENIC Non-Admin Reason: Off Unit: Surgery Magnesium Hydroxide (Milk Of Magnesia 30 Ml Oral.Susp) 30 ml PO DAILY PRN PRN Reason: Constipation Melatonin (Melatonin 3 Mg Tablet) 6 mg PO BEDTIME PRN PRN Reason: Insomnia Pantoprazole Sodium (Pantoprazole Sodium 40 Mg/10 Ml Vial) 40 mg IVPUSH BID@0630,1630 [facility] Last Admin: 01/27/24 05:56 Dose: 40 mg Documented By: RORO Polyethylene Glycol (Polyethylene Glycol 3350 17 Gm Powd.Pack) 17 gm PO DAILY PRN PRN Reason: Constipation Sodium Chloride (0.9 % Sodium Chloride Flush 3 Ml Syringe) 3 ml IVFLUSH QSHIFT [facility] Last Admin: 01/27/24 08:15 Dose: 3 ml Documented By: DOMENIC Tamsulosin HCl (Tamsulosin Hcl 0.4 Mg Capsule) 0.4 mg PO DAILY [facility] Last Admin: 01/27/24 08:14 Dose: 0.4 mg Documented By: DOMENIC Labs 01/27/24 06:15 01/26/24 06:29 Labs: Laboratory Results - last 24 hr 01/25/24 01/26/24 01/26/24 11:39 15:55 16:06 POC Glucose 100 Iron 27 L TIBC 311 % Saturation 9 L Unsat Iron Binding 284 Ferritin 22 Ammonia Lactate Dehydrogenase Vitamin B12 1389 H Folate 15.4 Blood Type A Positive Antibody Screen NEGATIVE Crossmatch See Detail 01/26/24 01/27/24 01/27/24 21:13 06:15 07:02 POC Glucose 81 94 Iron TIBC % Saturation Unsat Iron Binding Ferritin Ammonia 76 H Lactate Dehydrogenase 185 Vitamin B12 Folate Blood Type Antibody Screen Crossmatch 01/27/24 01/27/24 10:58 12:22 POC Glucose 123 H Iron TIBC % Saturation Unsat Iron Binding Ferritin Ammonia Lactate Dehydrogenase 192 Vitamin B12 Folate Blood Type Antibody Screen Crossmatch Microbiology Microbiology Results: Microbiology 01/25/24 11:32 Blood Culture - Preliminary Blood - Venous No growth after 48 hours. 01/25/24 11:33 Blood Culture - Preliminary Blood - Venous No growth after 48 hours. Assessment and Plan (1) Ascites: Status: Acute (2) Acute on chronic anemia: Status: Acute (3) Decompensated hepatic cirrhosis: Status: Acute (4) Hypotension: Status: Acute Plan 78-year-old male with history of hepatic cirrhosis complicated by esophageal varices and ascites, insulin-dependent type 2 diabetes, diabetic 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, hypertension, hyperlipidemia, history of prostate cancer, ANUJA on CPAP, chronic iron deficiency anemia, CAD on DAPT, h/o endocarditis s/p bioprosthetic TAVR, s/p pacemaker admitted for further management of hepatic encephalopathy, acute on chronic anemia with concern for UGIB. Acute toxic metabolic encephalopathy related to hepatic encephalopathy head CT negative for any acute intracranial abnormality. Ammonia level 83-trending down to 76 mental status and ammonia levels somewhat improving continue lactulose 30 g t.i.d., titrate to achieve 2-3 loose bowel movements per day acute on chronic anemia with concern for upper GI bleed H/H 6.9/22.5%, s/p 2 units prbc -improved to 8.4 ,then 7.8, given 1 prbc , h/h still in range 7.8-8.0 background hepatic cirrhosis with history esophageal variceal banding. continue IV octreotide 50 mcg bolus then transitioned to drip at 50 per hour, PPI,IV ctx for prophylaxis,added another prbc also patient is going for paracentesis and egd now. he follows with hematology- b12 def /renal insuff might contributin -added b12 . Hypotension(mulitfactorial -anemia ,bp meds ,low albumin): resolved with prbc ,midodrine,fluids yesterday. moniter h/h and vitals. acute hyperkalemia: improved. hold spironolactone hepatic cirrhosis complicated by esophageal varices, ascites -hold spironolactone due to above,hold bumex npo for egd. insulin-dependent type 2 diabetes fs flactuating 90-120's -POC glucose, advance to diabetic diet,avoid coverage below 200. CAD/HLD-hold ASA due to above last cardiac cath with PCI 01/2022 continue statin, bb, zetia BPH-continue tamsulosin, finasteride diabetic 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-hold gabapentin given sedation/encephalopathy ANUJA on CPAP-CPAP bedtime h/o endocarditis with H/O strep bacteremia 01/2023 -Follows with [facility] ID, had been on long term care social worker abx but these have been discontinued DVT prophylaxis-compression Full code ongoing inpatient stay for further management of acute on chronic blood loss anemia requiring transfusion, cardic monitoring, and telemetry. He also has hepatic encephalopathy requiring titration of lactulose and close monitoring of mentation which can not be achieved in less acute setting Quality Stroke Does the patient have a stroke diagnosis?: No VTE Prior VTE?: No VTE Risk Level:: Medical - moderate - high VTE Device Contraindication: N/A - Device Ordered VTE Drug Contraindication: Treatment Not Indicated
--- NOTE | 2024-01-27 15:47 | P.CDIM_ITS ---
PROVIDER RESPONSE TEXT: To clarify, the appropriate diagnosis supported by the clinical indicators: Other (explain): mulifactorial(b12 ,aocd ,gi -egd pending) QUERY TEXT: PHYSICIAN'S DOCUMENTATION REQUEST Date of Query: 01/27/2024 08:38 AM EDT Patient Name: Kwaku Lopes Admit Date: 01/25/2024 Dear Wei Nur, A review of the medical record indicates additional documentation may be needed. Please review below and update the documentation accordingly. Clinical Indicators: Progress notes: Upper GI bleed LABS: Iron 27 L H/H 6.9/22.5 3 units transfused GI consult: iron, B12 and folate studies ordered. Has chronic iron deficiency anemia and gets weekly transfusions Clarify which of the following accurately represents the acuity of the anemia: Iron deficiency anemia due to acute on chronic blood loss possible, suspected, probable Iron deficiency anemia due to chronic blood loss Iron deficiency anemia Other (explain) Clinically unable to determine (explain) Thank you, Ariadna La, CCS, CDIS Use of terms such as suspected, likely, concern for, or probable (associated with a specific diagnosi s that is being evaluated, monitored, or treated as if it exists) are acceptable and can be coded in the inpatient se tting, when documented at the time of discharge. Please use your independent medical judgment in providing your response. THIS QUERY IS PART OF THE PERMANENT MEDICAL RECORD
--- NOTE | 2024-01-27 16:23 | P.CONAN_ITS ---
[facility] Active Problems Active Problems: All Active Problems (Updated 01/25/24 @ 13:30 by Gertrude Dykes NP) Ascites (Acute) Decompensated hepatic cirrhosis (Acute) Acute on chronic anemia (Acute) Hepatic encephalopathy (Acute) Increased ammonia level (Acute) Hyperkalemia (Acute) Fracture of left humerus (Acute) Acute blood loss anemia (Acute) Streptococcal bacteremia (Acute) Tendinopathy of right shoulder (Acute) Comminuted left humeral fracture (Acute) Hypotension (Acute) Cervical spondyloarthritis (Acute) GISELA (generalized anxiety disorder) (Acute) BPH loc w urin obs/LUTS (Acute) Incomplete bladder emptying (Acute) Adenocarcinoma of prostate (Acute) Pacemaker (Acute) Complete heart block (Acute) S/P TAVR (transcatheter aortic valve replacement) (Acute) Heart failure (Acute) Chronic anemia (Acute) Allergic rhinitis (Acute) Aortic stenosis (Acute) Osteoarthritis of left knee (Acute) BPH (benign prostatic hyperplasia) (Acute) Pre-op evaluation (Acute) Cirrhosis of liver without ascites (Acute) Vitamin B12 deficiency (Acute) Multiple gastric polyps (Acute) Anemia (Chronic) Radiation proctitis (Acute) Internal hemorrhoids (Acute) Diverticulosis (Acute) Adenomatous polyps (Acute) Esophageal varices in cirrhosis (Acute) Need for pneumococcal vaccination (Acute) GERD (gastroesophageal reflux disease) (Acute) detention (current) use of insulin (Acute) Diabetic 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 associated with type 2 diabetes mellitus (Acute) Diabetic nephropathy associated with type 2 diabetes mellitus (Acute) Hypertension (Acute) Past Medical History Medical History Hyperglycemia Symptomatic anemia Difficulty walking Anemia 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 Streptococcal bacteremia Fracture of left humerus History of prostate cancer Acute lower gastrointestinal bleeding COVID-19 vaccine series completed Hypertension Dyslipidemia Diabetic nephropathy associated with type 2 diabetes mellitus Diabetic 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 associated with type 2 diabetes mellitus detention (current) use of insulin Diabetes type 2, uncontrolled Varices of esophagus determined by endoscopy Esophageal varices without bleeding KOEHLER (dyspnea on exertion) Chronic fatigue Iron deficiency anemia CAD (coronary artery disease) ANUJA on CPAP Prostate cancer Spinal stenosis On beta kayy at home IBS (irritable colon syndrome) Aortic stenosis HTN (hypertension) DMII (diabetes mellitus, type 2) Polyneuropathy GERD (gastroesophageal reflux disease) Family History Family History Father CVD (cardiovascular disease) Past heart attack Mother CVD (cardiovascular disease) Brain cancer Heart problem Daughter Breast cancer Sister Breast cancer Son Alive and well Family/Other Myocardial infarction Liver cancer Family history of problems with anesthesia: No Surgical History Surgical History S/P infectious endocarditis H/O cataract extraction Hx of endoscopy History of colonoscopy Hx of esophagogastroduodenoscopy Hx of colonoscopy History of surgery History of transurethral resection of prostate History of surgery History of heart artery stent History of Problems with Anesthesia: No Social History Social History Household Members: Spouse Household Members Other:: Myesha Housing: House Are you a primary customer care team coach to a significant other at home: No Do you presently have visiting nurse or other home services: Yes (RN 2 x a week) Alcohol intake: never Patient Tobacco Use Status: Never used Tobacco e-Cigarette/Vaping Use: Never Used Second Hand Smoke Exposure: No Advance Directives Date on File: 08/31/23 service: No Current occupational status: retired Cognitive needs: No Hearing needs: No Vision needs: Yes Meds Allergies Allergy/AdvReac Type Severity Reaction Status Date / Time KARL Inhibitors Allergy Severe Angioedema Verified 01/25/24 11:15 dextran 40 [DEXTRAN 40] Allergy Intermediate tachycardia Verified 01/25/24 11:15 latex [LATEX] Allergy Mild BLISTERS Verified 01/25/24 11:15 lisinopril [From Zestril] Allergy Mild Unknown Verified 01/25/24 11:15 Iodinated Contrast Media Allergy Unknown UNKNOWN Verified 01/25/24 11:15 [CONTRAST,IV] Active Medications: Current Medications Acetaminophen (Acetaminophen 325 Mg Tablet) 650 mg PO Q6H PRN PRN Reason: Fever Last Admin: 01/26/24 08:43 Dose: 650 mg Acetaminophen (Acetaminophen 325 Mg Tablet) 650 mg PO Q6H PRN PRN Reason: Pain, Mild (Pain Scale 1-3) Acetaminophen (Acetaminophen 325 Mg Tablet) 650 mg PO Q6H PRN PRN Reason: Headache Alprazolam (Alprazolam 0.5 Mg Tablet) 0.5 mg PO BID PRN PRN Reason: Anxiety Last Admin: 01/26/24 23:11 Dose: 0.5 mg Bethanechol Chloride (Bethanechol Chloride 25 Mg Tablet) 25 mg PO BID [facility] Last Admin: 01/27/24 08:14 Dose: 25 mg Bumetanide (Bumetanide 1 Mg Tablet) 1 mg PO DAILY [facility]; Protocol Last Admin: 01/27/24 08:14 Dose: 1 mg Calcium Carbonate (Calcium Carbonate 750 Mg Tab.Chew) 750 mg PO Q6H PRN PRN Reason: Heartburn Cyanocobalamin (Cyanocobalamin (Vitamin B-12) 1,000 Mcg Tablet) 1,000 mcg PO BEDTIME [facility] Last Admin: 01/26/24 23:11 Dose: 1,000 mcg Cyanocobalamin (Cyanocobalamin (Vitamin B-12) 1,000 Mcg/Ml Vial) 1,000 mcg IM DAILY [facility] Last Admin: 01/27/24 08:14 Dose: 1,000 mcg Ezetimibe (Ezetimibe 10 Mg Tablet) 10 mg PO DAILY [facility] Last Admin: 01/27/24 08:14 Dose: 10 mg Ferrous Sulfate (Ferrous Sulfate 324 Mg Tablet.Dr) 324 mg PO DAILY [facility] Last Admin: 01/27/24 08:14 Dose: 324 mg Finasteride (Finasteride 5 Mg Tablet) 5 mg PO DAILY [facility] Last Admin: 01/27/24 08:14 Dose: 5 mg Folic Acid (Folic Acid 1 Mg Tablet) 1 mg PO DAILY [facility] Last Admin: 01/27/24 08:14 Dose: 1 mg Glucose (Glucose Gel 15 Gm Gel..Gram.) 15 gm PO Q15M PRN; Protocol PRN Reason: per Hypoglycemia Standing Ord. Octreotide Acetate 500 mcg/ (Sodium Chloride) 501 mls @ 50.1 mls/hr IVCONT .Q10H [facility] Last Admin: 01/27/24 08:15 Dose: 50 mcg/hr, 50.1 mls/hr Ceftriaxone Sodium 1 gm/ (Sodium Chloride) 50 mls @ 100 mls/hr IV Q24H [facility] Last Infusion: 01/26/24 16:58 Dose: Infused Dextrose (D10) 250 mls @ 750 mls/hr IV Q15M PRN; Protocol PRN Reason: per Hypoglycemia Standing Ord. Dextrose/Sodium Chloride (D5ns) 1,000 mls @ 50 mls/hr IVCONT .Q20H [facility] Last Admin: 01/27/24 00:13 Dose: 50 mls/hr Insulin Glargine (Insulin Glargine,Hum.Rec.Anlog 100 Unit/Ml 10 Ml Vial) 6 unit SUBCUT BEDTIME [facility] Last Admin: 01/26/24 23:11 Dose: 6 unit Insulin Human Lispro (Insulin Lispro 100 Unit/Ml 3 Ml Vial) 0 unit SUBCUT QIDACHS [facility]; Protocol Last Admin: 01/27/24 11:03 Dose: Not Given Lactulose (Lactulose 20 Gm/30 Ml Solution) 30 gm PO TID [facility] Last Admin: 01/27/24 14:45 Dose: Not Given Magnesium Hydroxide (Milk Of Magnesia 30 Ml Oral.Susp) 30 ml PO DAILY PRN PRN Reason: Constipation Melatonin (Melatonin 3 Mg Tablet) 6 mg PO BEDTIME PRN PRN Reason: Insomnia Pantoprazole Sodium (Pantoprazole Sodium 40 Mg/10 Ml Vial) 40 mg IVPUSH BID@0630,1630 [facility] Last Admin: 01/27/24 05:56 Dose: 40 mg Polyethylene Glycol (Polyethylene Glycol 3350 17 Gm Powd.Pack) 17 gm PO DAILY PRN PRN Reason: Constipation Sodium Chloride (0.9 % Sodium Chloride Flush 3 Ml Syringe) 3 ml IVFLUSH QSHIFT [facility] Last Admin: 01/27/24 08:15 Dose: 3 ml Tamsulosin HCl (Tamsulosin Hcl 0.4 Mg Capsule) 0.4 mg PO DAILY [facility] Last Admin: 01/27/24 08:14 Dose: 0.4 mg Home Medications ?Medication ?Instructions ?Recorded ?Confirmed ?Last Taken ?Type cyanocobalamin (vitamin B-12) 500 1,000 mcg PO BEDTIME 12/29/22 01/25/24 01/24/24 History mcg tablet ferrous sulfate 325 mg (65 mg 325 mg PO DAILY 04/29/23 01/25/24 01/24/24 History iron) tablet,delayed release dulaglutide 0.75 mg/0.5 mL 0.75 mg subcut MO 11/09/23 01/25/24 01/18/24 History subcutaneous pen injector (Trulicity) atorvastatin 80 mg tablet 40 mg PO BEDTIME 11/18/23 11/18/23 Unknown History Exam Height,Weight and Vital Signs: Height 5 ft 9 in Weight 84.3 kg Last Vital Signs Temp 98.2 F 01/27/24 13:38 Pulse 73 01/27/24 13:38 Resp 16 01/27/24 13:38 BP 124/47 L 01/27/24 13:38 Pulse Ox 97 01/27/24 13:38 O2 Del Method Room Air 01/27/24 13:38 Pertinent Lab Results Pertinent Lab Results: Laboratory Tests 01/25/24 01/25/24 01/25/24 11:32 11:33 11:39 WBC 3.5 L RBC 2.48 L Hgb 6.9 L* Hct 22.5 L MCV 90.7 MCH 27.8 MCHC 30.7 L RDW 16.0 Plt Count 98 L MPV 11.6 Immature Gran % (Auto) 0.6 H Neut % (Auto) 70.3 Lymph % (Auto) 11.[address] [place] % (Auto) 13.3 H Eos % (Auto) 2.8 Baso % (Auto) 1.4 Lymph # (Auto) 0.[address] [place] # (Auto) 0.5 Eos # (Auto) 0.1 Baso # (Auto) 0.1 Abs Immat Gran (auto) 0.02 Absolute Neuts (auto) 2.5 Absolute Nucleated RBC 0.000 Nucleated RBC % (auto) 0.0 PT 14.0 H INR 1.2 H VBG pH VBG pCO2 VBG pO2 VBG HCO3 VBG O2 Saturation VBG Base Excess Sodium 137 Potassium 5.6 H Chloride 112 H Carbon Dioxide 18 L Anion Gap 13 BUN 59 H Creatinine 1.78 H Estim Creat Clear Calc 33.0 Estimated GFR 37 POC Glucose Random Glucose 275 H Lactic Acid 1.2 Calcium 8.0 L Magnesium 2.2 Iron TIBC % Saturation Unsat Iron Binding Ferritin Total Bilirubin 0.6 Direct Bilirubin AST 23 ALT 26 Alkaline Phosphatase 106 Ammonia 83 H Lactate Dehydrogenase Troponin I High Sens 8.5 B-Natriuretic Peptide 202 H Total Protein 5.7 L Albumin 3.0 L Vitamin B12 Folate Urine Color Urine Appearance Urine pH Ur Specific [place] Urine Protein Urine Glucose (UA) Urine Ketones Urine Blood Urine Nitrite Ur Leukocyte Esterase Urine RBC Urine WBC Ur Squamous Epith Cells Urine Bacteria Hyaline Casts Stool Occult Blood Urine Opiates Screen Ur Buprenorphine Scrn Ur Oxycodone Screen Urine Methadone Screen Urine Fentanyl Screen Ur Barbiturates Screen Ur Phencyclidine Scrn Ur Amphetamines Screen U Benzodiazepines Scrn Urine Cocaine Screen U Marijuana (THC) Screen Ethyl Alcohol < 10 Influenza Type A (PCR) NEGATIVE Influenza Type B (PCR) NEGATIVE RSV RNA Qual (PCR) NEGATIVE SARS-CoV-2 RNA (RT-PCR) NEGATIVE Blood Type A Positive Antibody Screen NEGATIVE Crossmatch See Detail 01/25/24 01/25/24 01/25/24 11:40 12:56 13:45 WBC RBC Hgb Hct MCV MCH MCHC RDW Plt Count MPV Immature Gran % (Auto) Neut % (Auto) Lymph % (Auto) [place] % (Auto) Eos % (Auto) Baso % (Auto) Lymph # (Auto) [place] # (Auto) Eos # (Auto) Baso # (Auto) Abs Immat Gran (auto) Absolute Neuts (auto) Absolute Nucleated RBC Nucleated RBC % (auto) PT INR VBG pH 7.32 VBG pCO2 33 VBG pO2 68 VBG HCO3 17 L VBG O2 Saturation 93.0 VBG Base Excess -7.8 Sodium Potassium Chloride Carbon Dioxide Anion Gap BUN Creatinine Estim Creat Clear Calc Estimated GFR POC Glucose Random Glucose Lactic Acid Calcium Magnesium Iron TIBC % Saturation Unsat Iron Binding Ferritin Total Bilirubin Direct Bilirubin AST ALT Alkaline Phosphatase Ammonia Lactate Dehydrogenase Troponin I High Sens B-Natriuretic Peptide Total Protein Albumin Vitamin B12 Folate Urine Color Yellow Urine Appearance Clear Urine pH 5.0 Ur Specific [place] 1.010 Urine Protein Negative Urine Glucose (UA) >=1000 H Urine Ketones Negative Urine Blood Negative Urine Nitrite Negative Ur Leukocyte Esterase Negative Urine RBC 0-2 Urine WBC 0-5 Ur Squamous Epith Cells 0-2 Urine Bacteria None Seen Hyaline Casts 3-5 Stool Occult Blood NEGATIVE Urine Opiates Screen Not Detected Ur Buprenorphine Scrn Not Detected Ur Oxycodone Screen Positive H Urine Methadone Screen Not Detected Urine Fentanyl Screen Not Detected Ur Barbiturates Screen Not Detected Ur Phencyclidine Scrn Not Detected Ur Amphetamines Screen Not Detected U Benzodiazepines Scrn Not Detected Urine Cocaine Screen Not Detected U Marijuana (THC) Screen Not Detected Ethyl Alcohol Influenza Type A (PCR) Influenza Type B (PCR) RSV RNA Qual (PCR) SARS-CoV-2 RNA (RT-PCR) Blood Type Antibody Screen Crossmatch 01/25/24 01/25/24 01/25/24 13:57 16:21 20:18 WBC RBC Hgb 8.4 L D Hct 27.3 L D MCV MCH MCHC RDW Plt Count MPV Immature Gran % (Auto) Neut % (Auto) Lymph % (Auto) [place] % (Auto) Eos % (Auto) Baso % (Auto) Lymph # (Auto) [place] # (Auto) Eos # (Auto) Baso # (Auto) Abs Immat Gran (auto) Absolute Neuts (auto) Absolute Nucleated RBC Nucleated RBC % (auto) PT INR VBG pH VBG pCO2 VBG pO2 VBG HCO3 VBG O2 Saturation VBG Base Excess Sodium Potassium Chloride Carbon Dioxide Anion Gap BUN Creatinine Estim Creat Clear Calc Estimated GFR POC Glucose 231 H 143 H Random Glucose Lactic Acid Calcium Magnesium Iron TIBC % Saturation Unsat Iron Binding Ferritin Total Bilirubin Direct Bilirubin AST ALT Alkaline Phosphatase Ammonia Lactate Dehydrogenase Troponin I High Sens B-Natriuretic Peptide Total Protein Albumin Vitamin B12 Folate Urine Color Urine Appearance Urine pH Ur Specific [place] Urine Protein Urine Glucose (UA) Urine Ketones Urine Blood Urine Nitrite Ur Leukocyte Esterase Urine RBC Urine WBC Ur Squamous Epith Cells Urine Bacteria Hyaline Casts Stool Occult Blood Urine Opiates Screen Ur Buprenorphine Scrn Ur Oxycodone Screen Urine Methadone Screen Urine Fentanyl Screen Ur Barbiturates Screen Ur Phencyclidine Scrn Ur Amphetamines Screen U Benzodiazepines Scrn Urine Cocaine Screen U Marijuana (THC) Screen Ethyl Alcohol Influenza Type A (PCR) Influenza Type B (PCR) RSV RNA Qual (PCR) SARS-CoV-2 RNA (RT-PCR) Blood Type Antibody Screen Crossmatch 01/25/24 01/26/24 01/26/24 21:28 06:29 07:08 WBC 4.6 L RBC 2.99 L D Hgb 8.4 L Hct 26.7 L MCV 89.3 MCH 28.1 MCHC 31.5 RDW 16.4 H Plt Count 88 L MPV 11.2 Immature Gran % (Auto) 0.2 Neut % (Auto) 74.3 H Lymph % (Auto) 10.[address] % (Auto) 10.9 Eos % (Auto) 2.8 Baso % (Auto) 1.3 Lymph # (Auto) 0.[address] # (Auto) 0.5 Eos # (Auto) 0.1 Baso # (Auto) 0.1 Abs Immat Gran (auto) 0.01 Absolute Neuts (auto) 3.4 Absolute Nucleated RBC 0.000 Nucleated RBC % (auto) 0.0 PT INR VBG pH VBG pCO2 VBG pO2 VBG HCO3 VBG O2 Saturation VBG Base Excess Sodium 139 Potassium 5.1 Chloride 115 H Carbon Dioxide 16 L Anion Gap 13 BUN 51 H Creatinine 1.50 H Estim Creat Clear Calc 39.2 Estimated GFR 45 POC Glucose 88 90 Random Glucose 87 Lactic Acid Calcium 8.0 L Magnesium Iron TIBC % Saturation Unsat Iron Binding Ferritin Total Bilirubin 0.7 Direct Bilirubin 0.3 AST 27 ALT 26 Alkaline Phosphatase 102 Ammonia Lactate Dehydrogenase Troponin I High Sens B-Natriuretic Peptide Total Protein 5.3 L Albumin 2.9 L Vitamin B12 Folate Urine Color Urine Appearance Urine pH Ur Specific [place] Urine Protein Urine Glucose (UA) Urine Ketones Urine Blood Urine Nitrite Ur Leukocyte Esterase Urine RBC Urine WBC Ur Squamous Epith Cells Urine Bacteria Hyaline Casts Stool Occult Blood Urine Opiates Screen Ur Buprenorphine Scrn Ur Oxycodone Screen Urine Methadone Screen Urine Fentanyl Screen Ur Barbiturates Screen Ur Phencyclidine Scrn Ur Amphetamines Screen U Benzodiazepines Scrn Urine Cocaine Screen U Marijuana (THC) Screen Ethyl Alcohol Influenza Type A (PCR) Influenza Type B (PCR) RSV RNA Qual (PCR) SARS-CoV-2 RNA (RT-PCR) Blood Type Antibody Screen Crossmatch 01/26/24 01/26/24 01/26/24 10:45 12:32 15:55 WBC RBC Hgb 7.8 L Hct 24.5 L MCV MCH MCHC RDW Plt Count MPV Immature Gran % (Auto) Neut % (Auto) Lymph % (Auto) [place] % (Auto) Eos % (Auto) Baso % (Auto) Lymph # (Auto) [place] # (Auto) Eos # (Auto) Baso # (Auto) Abs Immat Gran (auto) Absolute Neuts (auto) Absolute Nucleated RBC Nucleated RBC % (auto) PT INR VBG pH VBG pCO2 VBG pO2 VBG HCO3 VBG O2 Saturation VBG Base Excess Sodium Potassium Chloride Carbon Dioxide Anion Gap BUN Creatinine Estim Creat Clear Calc Estimated GFR POC Glucose 200 H 100 Random Glucose Lactic Acid Calcium Magnesium Iron TIBC % Saturation Unsat Iron Binding Ferritin Total Bilirubin Direct Bilirubin AST ALT Alkaline Phosphatase Ammonia Lactate Dehydrogenase Troponin I High Sens B-Natriuretic Peptide Total Protein Albumin Vitamin B12 Folate Urine Color Urine Appearance Urine pH Ur Specific [place] Urine Protein Urine Glucose (UA) Urine Ketones Urine Blood Urine Nitrite Ur Leukocyte Esterase Urine RBC Urine WBC Ur Squamous Epith Cells Urine Bacteria Hyaline Casts Stool Occult Blood Urine Opiates Screen Ur Buprenorphine Scrn Ur Oxycodone Screen Urine Methadone Screen Urine Fentanyl Screen Ur Barbiturates Screen Ur Phencyclidine Scrn Ur Amphetamines Screen U Benzodiazepines Scrn Urine Cocaine Screen U Marijuana (THC) Screen Ethyl Alcohol Influenza Type A (PCR) Influenza Type B (PCR) RSV RNA Qual (PCR) SARS-CoV-2 RNA (RT-PCR) Blood Type Antibody Screen Crossmatch 01/26/24 01/26/24 01/26/24 16:06 21:09 21:13 WBC RBC Hgb 8.0 L Hct 24.4 L MCV MCH MCHC RDW Plt Count MPV Immature Gran % (Auto) Neut % (Auto) Lymph % (Auto) [place] % (Auto) Eos % (Auto) Baso % (Auto) Lymph # (Auto) [place] # (Auto) Eos # (Auto) Baso # (Auto) Abs Immat Gran (auto) Absolute Neuts (auto) Absolute Nucleated RBC Nucleated RBC % (auto) PT INR VBG pH VBG pCO2 VBG pO2 VBG HCO3 VBG O2 Saturation VBG Base Excess Sodium Potassium Chloride Carbon Dioxide Anion Gap BUN Creatinine Estim Creat Clear Calc Estimated GFR POC Glucose 81 Random Glucose Lactic Acid Calcium Magnesium Iron 27 L TIBC 311 % Saturation 9 L Unsat Iron Binding 284 Ferritin 22 Total Bilirubin Direct Bilirubin AST ALT Alkaline Phosphatase Ammonia Lactate Dehydrogenase Troponin I High Sens B-Natriuretic Peptide Total Protein Albumin Vitamin B12 1389 H Folate 15.4 Urine Color Urine Appearance Urine pH Ur Specific [place] Urine Protein Urine Glucose (UA) Urine Ketones Urine Blood Urine Nitrite Ur Leukocyte Esterase Urine RBC Urine WBC Ur Squamous Epith Cells Urine Bacteria Hyaline Casts Stool Occult Blood Urine Opiates Screen Ur Buprenorphine Scrn Ur Oxycodone Screen Urine Methadone Screen Urine Fentanyl Screen Ur Barbiturates Screen Ur Phencyclidine Scrn Ur Amphetamines Screen U Benzodiazepines Scrn Urine Cocaine Screen U Marijuana (THC) Screen Ethyl Alcohol Influenza Type A (PCR) Influenza Type B (PCR) RSV RNA Qual (PCR) SARS-CoV-2 RNA (RT-PCR) Blood Type Antibody Screen Crossmatch 01/27/24 01/27/24 01/27/24 06:15 07:02 10:58 WBC RBC Hgb 7.8 L Hct 24.8 L MCV MCH MCHC RDW Plt Count MPV Immature Gran % (Auto) Neut % (Auto) Lymph % (Auto) [place] % (Auto) Eos % (Auto) Baso % (Auto) Lymph # (Auto) [place] # (Auto) Eos # (Auto) Baso # (Auto) Abs Immat Gran (auto) Absolute Neuts (auto) Absolute Nucleated RBC Nucleated RBC % (auto) PT INR VBG pH VBG pCO2 VBG pO2 VBG HCO3 VBG O2 Saturation VBG Base Excess Sodium Potassium Chloride Carbon Dioxide Anion Gap BUN Creatinine Estim Creat Clear Calc Estimated GFR POC Glucose 94 123 H Random Glucose Lactic Acid Calcium Magnesium Iron TIBC % Saturation Unsat Iron Binding Ferritin Total Bilirubin Direct Bilirubin AST ALT Alkaline Phosphatase Ammonia 76 H Lactate Dehydrogenase 185 Troponin I High Sens B-Natriuretic Peptide Total Protein Albumin Vitamin B12 Folate Urine Color Urine Appearance Urine pH Ur Specific [place] Urine Protein Urine Glucose (UA) Urine Ketones Urine Blood Urine Nitrite Ur Leukocyte Esterase Urine RBC Urine WBC Ur Squamous Epith Cells Urine Bacteria Hyaline Casts Stool Occult Blood Urine Opiates Screen Ur Buprenorphine Scrn Ur Oxycodone Screen Urine Methadone Screen Urine Fentanyl Screen Ur Barbiturates Screen Ur Phencyclidine Scrn Ur Amphetamines Screen U Benzodiazepines Scrn Urine Cocaine Screen U Marijuana (THC) Screen Ethyl Alcohol Influenza Type A (PCR) Influenza Type B (PCR) RSV RNA Qual (PCR) SARS-CoV-2 RNA (RT-PCR) Blood Type Antibody Screen Crossmatch 01/27/24 12:22 WBC RBC Hgb Hct MCV MCH MCHC RDW Plt Count MPV Immature Gran % (Auto) Neut % (Auto) Lymph % (Auto) [place] % (Auto) Eos % (Auto) Baso % (Auto) Lymph # (Auto) [place] # (Auto) Eos # (Auto) Baso # (Auto) Abs Immat Gran (auto) Absolute Neuts (auto) Absolute Nucleated RBC Nucleated RBC % (auto) PT INR VBG pH VBG pCO2 VBG pO2 VBG HCO3 VBG O2 Saturation VBG Base Excess Sodium Potassium Chloride Carbon Dioxide Anion Gap BUN Creatinine Estim Creat Clear Calc Estimated GFR POC Glucose Random Glucose Lactic Acid Calcium Magnesium Iron TIBC % Saturation Unsat Iron Binding Ferritin Total Bilirubin Direct Bilirubin AST ALT Alkaline Phosphatase Ammonia Lactate Dehydrogenase 192 Troponin I High Sens B-Natriuretic Peptide Total Protein Albumin Vitamin B12 Folate Urine Color Urine Appearance Urine pH Ur Specific [place] Urine Protein Urine Glucose (UA) Urine Ketones Urine Blood Urine Nitrite Ur Leukocyte Esterase Urine RBC Urine WBC Ur Squamous Epith Cells Urine Bacteria Hyaline Casts Stool Occult Blood Urine Opiates Screen Ur Buprenorphine Scrn Ur Oxycodone Screen Urine Methadone Screen Urine Fentanyl Screen Ur Barbiturates Screen Ur Phencyclidine Scrn Ur Amphetamines Screen U Benzodiazepines Scrn Urine Cocaine Screen U Marijuana (THC) Screen Ethyl Alcohol Influenza Type A (PCR) Influenza Type B (PCR) RSV RNA Qual (PCR) SARS-CoV-2 RNA (RT-PCR) Blood Type Antibody Screen Crossmatch Airway Mallampati Class: II TM Dist: >3cm Neck ROM: Full Denture: Upper Partial: Lower Loose/Missing/Broken Teeth: Yes Heart: rrr 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
[2024-01-27 16:26] LABS: Glucose, Whole Blood 114 mg/dL (60-115)
--- NOTE | 2024-01-27 17:32 | P.OP_ITS ---
Operative Note Operative Note Date of Service: 01/27/24 Narrative: Procedure: Esophagogastroduodenoscopy Endoscopist: Edna Haque MD Indication: GI bleeding, cirrhosis Anesthesia Provider: Leonides Weiner and Airam Diego Anesthesia Type: MAC ?? EGD Procedure:?? The procedure, indications, preparation and potential complications were reviewed with the patient, who indicated understanding and gave written informed consent to proceed. A physical exam was performed. The patient was electively intubated for airway protection the anesthesiologist. The endoscope was introduced through the mouth, and advanced to the second part of duodenum. The mucosa was carefully examined on slow withdrawal of the endoscope. The patient tolerated the procedure well. There were no immediate complications.? ? EGD Findings:? * Esophagus:? There was a previous banding scar at 42 cm. The Z line was at 45 cm. 2 large varices were noted in the lower esophagus extending up to 35 cm with red zulay sign on one of the varix. * Stomach:? Diffuse congestion and erythema in mosaic pattern consistent with portal hypertensive gastropathy was noted in the whole stomach. Some erosions were noted in the antrum. * Duodenum:? There were two pedunculated polyps in the posterior bulb. One of these polyps was large estimated almost 2 cm and was freely prolapsing out of the pylorus into the antrum. Cold forceps biopsies were taken for histology. Snare polypectomy was NOT performed due to the size and ongoing coagulopathy. Additional intervention: A [employer] 7-shooter was affixed to the tip of the scope and the scope was reintroduced. The varix with high risk stigmata was banded. Complete flattening of both varices was noted after this. ? EGD Impressions:? * Esophageal varices * Portal hypertension * Antritis * Duodenal polyps ?? Recommendations:?? * Follow biopsy results. Our office will call or send a letter with results within 7-10 days. * Keep pt NPO for 6 hours and then start clears * If no rebleeding overnight, diet can be advanced tmrw * Cont IV PPI, Octreotide and Ceftriaxone for 72h after this procedure * Can then be switched to PO PPI, Coreg 6.25 BID and Cipro 500 respectively
[2024-01-27] MEDS: Pantoprazole Sodium 80 MG in 0.9 % Sodium Chloride 80 ML 10 MG IV (18:31)
[2024-01-27] MEDS: cefTRIAXone sodium 1 GM in 0.9 % Sodium Chloride 50 ML IV (19:55)
[2024-01-27 20:45] LABS: Glucose, Whole Blood 122 mg/dL (60-115)
[2024-01-28] VITALS (10 sets, daily range): BP systolic 118–133; BP diastolic 52–62; PULSE 59–70; RESP 14–20; TEMP 36.7–37.6; O2SAT 96–100
[2024-01-28] MEDS: Pantoprazole Sodium 80 MG in 0.9 % Sodium Chloride 80 ML 10 MG IV ×2 (03:36→13:41)
[2024-01-28] MEDS: HYDROmorphone HCl 0.5 MG/0.5 ML SYRINGE IVPUSH (04:09)
[2024-01-28] MEDS: Octreotide Acetate 500 MCG in 0.9 % Sodium Chloride 500 ML 50.1 MCG IVCONT ×2 (05:05→16:07)
[2024-01-28 06:52] LABS: Hematocrit 26.8 % (42.0-52.0); Hemoglobin 8.4 g/dl (14.0-18.0); Mean Corpuscular HGB Conc 31.3 g/dl (31.0-36.0); Mean Corpuscular Hemoglobin 28.5 pg (27.0-33.0); Mean Corpuscular Volume 90.8 fL (80.0-98.0); Red Blood Count 2.95 X10*6/uL (4.60-5.80); Red Cell Distribution Width 15.6 % (11.0-16.0); White Blood Count 3.2 X10*3/uL (4.8-10.8)
[2024-01-28 06:54] LABS: Platelet Count 66 X10*3/uL (160-400)
[2024-01-28 06:59] LABS: Anion Gap 12 (12-20); Blood Urea Nitrogen 34 mg/dL (9-16); Calcium 7.9 mg/dL (8.4-10.2); Carbon Dioxide 17 mmol/L (22-29); Chloride 114 mmol/L (96-108); Creatinine Clr Calc Pharmacy 42.3; Estimated Glomerular Filt Rate 49; Glucose Random 125 mg/dL (60-115); Potassium 4.3 mmol/L (3.3-5.1); Sodium 139 mmol/L (135-145)
[2024-01-28 07:08] LABS: Glucose, Whole Blood 118 mg/dL (60-115)
[2024-01-28] MEDS: Bethanechol Chloride 25 MG TABLET PO ×2 (08:50→21:10)
[2024-01-28] MEDS: Bumetanide 1 MG TABLET PO (08:50)
[2024-01-28] MEDS: Folic Acid 1 MG TABLET PO (08:50)
[2024-01-28] MEDS: Ferrous Sulfate 324 MG TABLET.DR PO (08:50)
[2024-01-28] MEDS: Tamsulosin HCL 0.4 MG CAPSULE PO (08:50)
[2024-01-28] MEDS: Finasteride 5 MG TABLET PO (08:51)
--- NOTE | 2024-01-28 08:58 | HO.POSTANES ---
Post Anesthesia Evaluation Post Anesthesia Evaluation Date of Service: 01/28/24 Vital Signs: Vital Signs Temp Pulse Resp BP Pulse Ox O2 Del Method O2 Flow Rate 01/28/24 07:37 99.6 F 68 20 120/60 97 Nasal Cannula 2 01/28/24 04:39 16 01/28/24 04:09 20 01/28/24 03:35 98.9 F 70 18 133/62 96 Nasal Cannula 2 01/27/24 23:41 99.5 F 75 18 147/67 H 96 Nasal Cannula 2 Anesthesia: TIVA Mental Status: Awake Pain Control: Satisfactory Nausea/Vomiting: None Hydration: Adequate Anesthesia-Related Issues: No Anes. Related Issues
[2024-01-28 10:59] LABS: Glucose, Whole Blood 155 mg/dL (60-115)
[2024-01-28] MEDS: Morphine Sulfate 2 MG/ML CARTRIDGE 1 MG IVPUSH (12:45)
[2024-01-28 14:37] LABS: Haptoglobin 51 mg/dL (43-212)
--- NOTE | 2024-01-28 15:14 | HO.PM.IMPN ---
Subjective Subjective Date of Service: 01/28/24 Interval History: anemia ,ascitis Review of Systems denies ant abd pain or new gross bleeding no fever or chills Physical Exam Vital Signs: Vital Signs: Last Vital Signs Temp 99.0 F 01/28/24 11:12 Pulse 61 01/28/24 11:12 Resp 18 01/28/24 11:12 BP 127/58 L 01/28/24 11:12 Pulse Ox 97 01/28/24 11:12 O2 Del Method Nasal Cannula 01/28/24 11:12 O2 Flow Rate 2 01/28/24 11:12 BMI result Body Mass Index 27.4 Appearance: Alert.? Oriented X3.? cvs: rrr, [id number]. res: clear to auscultation ,no rhonchii or wheezing abd: no rebound or guarding ,nt, bs present. ext pulses present , no cyanosis . neuro: axo3 , nonfocal. Objective Data Active Medications Acetaminophen (Acetaminophen 325 Mg Tablet) 650 mg PO Q6H PRN PRN Reason: Headache Alprazolam (Alprazolam 0.5 Mg Tablet) 0.5 mg PO BID PRN PRN Reason: Anxiety Last Admin: 01/26/24 23:11 Dose: 0.5 mg Documented By: RORO Bethanechol Chloride (Bethanechol Chloride 25 Mg Tablet) 25 mg PO BID [facility] Last Admin: 01/28/24 08:50 Dose: 25 mg Documented By: JANIYA Bumetanide (Bumetanide 1 Mg Tablet) 1 mg PO DAILY [facility]; Protocol Last Admin: 01/28/24 08:50 Dose: 1 mg Documented By: JANIYA Calcium Carbonate (Calcium Carbonate 750 Mg Tab.Chew) 750 mg PO Q6H PRN PRN Reason: Heartburn Cyanocobalamin (Cyanocobalamin (Vitamin B-12) 1,000 Mcg Tablet) 1,000 mcg PO BEDTIME [facility] Last Admin: 01/27/24 19:45 Dose: Not Given Documented By: RORO Non-Admin Reason: NPO Ezetimibe (Ezetimibe 10 Mg Tablet) 10 mg PO DAILY [facility] Last Admin: 01/27/24 08:14 Dose: 10 mg Documented By: DOMENIC Ferrous Sulfate (Ferrous Sulfate 324 Mg Tablet.Dr) 324 mg PO DAILY [facility] Last Admin: 01/28/24 08:50 Dose: 324 mg Documented By: JANIYA Finasteride (Finasteride 5 Mg Tablet) 5 mg PO DAILY [facility] Last Admin: 01/28/24 08:51 Dose: 5 mg Documented By: JANIYA Folic Acid (Folic Acid 1 Mg Tablet) 1 mg PO DAILY [facility] Last Admin: 01/28/24 08:50 Dose: 1 mg Documented By: JANIYA Glucose (Glucose Gel 15 Gm Gel..Gram.) 15 gm PO Q15M PRN; Protocol PRN Reason: per Hypoglycemia Standing Ord. Octreotide Acetate 500 mcg/ (Sodium Chloride) 501 mls @ 50.1 mls/hr IVCONT .Q10H [facility] Last Infusion: 01/28/24 04:30 Dose: Infused Documented By: RORO Dextrose (D10) 250 mls @ 750 mls/hr IV Q15M PRN; Protocol PRN Reason: per Hypoglycemia Standing Ord. Pantoprazole Sodium 80 mg/ (Sodium Chloride) 100 mls @ 10 mls/hr IV .Q10H [facility] Last Admin: 01/28/24 13:41 Dose: 8 mg/hr, 10 mls/hr Documented By: JANIYA Ceftriaxone Sodium 1 gm/ (Sodium Chloride) 50 mls @ 100 mls/hr IV Q24H [facility] Last Infusion: 01/27/24 21:09 Dose: Infused Documented By: RORO Insulin Glargine (Insulin Glargine,Hum.Rec.Anlog 100 Unit/Ml 10 Ml Vial) 6 unit SUBCUT BEDTIME [facility] Last Admin: 01/27/24 22:33 Dose: Not Given Documented By: RORO Non-Admin Reason: Physician Approved Insulin Human Lispro (Insulin Lispro 100 Unit/Ml 3 Ml Vial) 0 unit SUBCUT QIDACHS [facility]; Protocol Last Admin: 01/28/24 11:59 Dose: Not Given Documented By: JANIYA Non-Admin Reason: No Insulin Coverage Lactulose (Lactulose 20 Gm/30 Ml Solution) 30 gm PO TID [facility] Last Admin: 01/28/24 08:51 Dose: Not Given Documented By: JANIYA Non-Admin Reason: Patient Refused Magnesium Hydroxide (Milk Of Magnesia 30 Ml Oral.Susp) 30 ml PO DAILY PRN PRN Reason: Constipation Melatonin (Melatonin 3 Mg Tablet) 6 mg PO BEDTIME PRN PRN Reason: Insomnia Polyethylene Glycol (Polyethylene Glycol 3350 17 Gm Powd.Pack) 17 gm PO DAILY PRN PRN Reason: Constipation Sodium Chloride (0.9 % Sodium Chloride Flush 3 Ml Syringe) 3 ml IVFLUSH QSHIFT [facility] Last Admin: 01/28/24 08:49 Dose: Not Given Documented By: JANIYA Non-Admin Reason: IV Running Tamsulosin HCl (Tamsulosin Hcl 0.4 Mg Capsule) 0.4 mg PO DAILY [facility] Last Admin: 01/28/24 08:50 Dose: 0.4 mg Documented By: JANIYA Labs 01/28/24 06:24 01/28/24 06:24 Labs: Laboratory Results - last 24 hr 01/27/24 01/27/24 01/27/24 06:15 16:18 20:33 MCV MCH MCHC RDW Plt Count MPV Absolute Nucleated RBC Nucleated RBC % (auto) Haptoglobin 51 Anion Gap Estim Creat Clear Calc Estimated GFR POC Glucose 114 122 H Random Glucose Calcium 01/28/24 01/28/24 01/28/24 06:24 07:05 10:52 MCV 90.8 MCH 28.5 MCHC 31.3 RDW 15.6 Plt Count 66 L MPV 11.0 Absolute Nucleated RBC 0.000 Nucleated RBC % (auto) 0.0 Haptoglobin Anion Gap 12 Estim Creat Clear Calc 42.3 Estimated GFR 49 POC Glucose 118 H 155 H Random Glucose 125 H Calcium 7.9 L Microbiology Microbiology Results: Microbiology 01/25/24 11:32 Blood Culture - Preliminary Blood - Venous No growth after 48 hours. 01/25/24 11:33 Blood Culture - Preliminary Blood - Venous No growth after 48 hours. Assessment and Plan (1) Ascites: Status: Acute (2) Acute on chronic anemia: Status: Acute (3) Decompensated hepatic cirrhosis: Status: Acute (4) Hypotension: Status: Acute Plan 78-year-old male with history of hepatic cirrhosis complicated by esophageal varices and ascites, insulin-dependent type 2 diabetes, diabetic 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, hypertension, hyperlipidemia, history of prostate cancer, ANUJA on CPAP, chronic iron deficiency anemia, CAD on DAPT, h/o endocarditis s/p bioprosthetic TAVR, s/p pacemaker admitted for further management of hepatic encephalopathy, acute on chronic anemia with concern for UGIB. Acute toxic metabolic encephalopathy related to hepatic encephalopathy head CT negative for any acute intracranial abnormality. Ammonia level 83-trending down to 76 mental status and ammonia levels somewhat improving continue lactulose 30 g t.i.d., titrate to achieve 2-3 loose bowel movements per day acute on chronic anemia with concern for upper GI bleed H/H 6.9/22.5%, s/p 2 units prbc -improved to 8.4 ,then 7.8, given 1 prbc , h/h still in range 7.8-8.0 background hepatic cirrhosis with history esophageal variceal banding. continue IV octreotide 50 mcg bolus then transitioned to drip at 50 per hour, PPI,IV ctx for prophylaxis,added another prbc s/p para -portal vein is patent and shows hepatopedal flow,trace perihepatic free fluid. egd:s/p varcel banding he follows with hematology- b12 def /renal insuff might contributin -continue b12 . continue iv octreotide and ppi drip for 72hrs. Hypotension(mulitfactorial -anemia ,bp meds ,low albumin): resolved with prbc ,midodrine,fluids yesterday. moniter h/h and vitals. acute hyperkalemia: improved. hold spironolactone hepatic cirrhosis complicated by esophageal varices, ascites -hold spironolactone due to above,hold bumex npo for egd. insulin-dependent type 2 diabetes fs flactuating 90-120's -POC glucose, advance to diabetic diet,avoid coverage below 200. CAD/HLD-hold ASA due to above last cardiac cath with PCI 01/2022 continue statin, bb, zetia BPH-continue tamsulosin, finasteride diabetic 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-hold gabapentin given sedation/encephalopathy ANUJA on CPAP-CPAP bedtime h/o endocarditis with H/O strep bacteremia 01/2023 -Follows with [facility] ID, had been on [facility] abx but these have been discontinued DVT prophylaxis-compression Full code ongoing inpatient stay for further management of acute on chronic blood loss anemia requiring transfusion,varicel banding, cardic monitoring, and telemetry. He also has hepatic encephalopathy requiring titration of lactulose and close monitoring of mentation which can not be achieved in less acute setting Quality Stroke Does the patient have a stroke diagnosis?: No VTE Prior VTE?: No VTE Risk Level:: Medical - moderate - high VTE Device Contraindication: N/A - Device Ordered VTE Drug Contraindication: Treatment Not Indicated
[2024-01-28] MEDS: Lactulose 20 GM/30 ML SOLUTION 30 GM PO ×2 (16:08→21:10)
[2024-01-28] MEDS: 0.9 % Sodium Chloride Flush 3 ML SYRINGE IVFLUSH ×2 (16:09→21:16)
[2024-01-28 17:13] LABS: Glucose, Whole Blood 163 mg/dL (60-115)
[2024-01-28 20:19] LABS: Glucose, Whole Blood 181 mg/dL (60-115)
[2024-01-28] MEDS: Cyanocobalamin (Vitamin B-12) 1,000 MCG TABLET 1000 MCG PO (21:10)
[2024-01-28] MEDS: cefTRIAXone sodium 1 GM in 0.9 % Sodium Chloride 50 ML IV (21:16)
[2024-01-29] VITALS (8 sets, daily range): BP systolic 110–133; BP diastolic 45–61; PULSE 60–67; RESP 16–20; TEMP 36.7–37.4; O2SAT 95–98
[2024-01-29] MEDS: Pantoprazole Sodium 80 MG in 0.9 % Sodium Chloride 80 ML 10 MG IV ×3 (03:02→23:24)
[2024-01-29] MEDS: Octreotide Acetate 500 MCG in 0.9 % Sodium Chloride 500 ML 50.1 MCG IVCONT ×3 (03:03→23:26)
[2024-01-29] MEDS: Melatonin 3 MG TABLET 6 MG PO ×2 (04:49→20:49)
[2024-01-29 07:37] LABS: Glucose, Whole Blood 112 mg/dL (60-115)
[2024-01-29] MEDS: Ferrous Sulfate 324 MG TABLET.DR PO (09:34)
[2024-01-29] MEDS: Bethanechol Chloride 25 MG TABLET PO ×2 (09:34→20:49)
[2024-01-29] MEDS: Tamsulosin HCL 0.4 MG CAPSULE PO (09:34)
[2024-01-29] MEDS: Bumetanide 1 MG TABLET PO (09:34)
[2024-01-29] MEDS: Lactulose 20 GM/30 ML SOLUTION 30 GM PO ×3 (09:34→20:51)
[2024-01-29] MEDS: Finasteride 5 MG TABLET PO (09:35)
[2024-01-29] MEDS: Folic Acid 1 MG TABLET PO (10:15)
--- NOTE | 2024-01-29 10:25 | MHC.CM.PN ---
EMR REVIEWED, PER HSOPITALIST ROUNDS PT WILL REMAIN ON OCTREOTIDE DRIP UNTIL LATE MONDAY 01/29 AND WILL NEED TO BE MONITORED 24HRS, ANTIC PT WILL BE CLEARED FOR DC WEDNESDAY 01/31, PT EVAL REQUESTED, CM WILL CONT TO FOLLOW DC NEEDS.
[2024-01-29 11:29] LABS: Glucose, Whole Blood 175 mg/dL (60-115)
--- NOTE | 2024-01-29 16:07 | P.PNIM_ITS ---
Subjective Subjective Date of Service: 01/29/24 Interval History: anemia ,ascitis Review of Systems no abd pain sittin and eating breakfast no gross bleeding episode no fever or chills Physical Exam 2 Vital Signs: Vital Signs: Last Vital Signs Temp 98.0 F 01/29/24 15:37 Pulse 67 01/29/24 15:37 Resp 17 01/29/24 15:37 BP 112/51 L 01/29/24 15:37 Pulse Ox 95 01/29/24 15:37 O2 Del Method Nasal Cannula 01/29/24 15:37 O2 Flow Rate 1 01/29/24 15:37 Oxygen Flow Rate 2 01/28/24 17:51 BMI result Body Mass Index 27.4 Appearance: Alert.? Oriented X3.? cvs: rrr, [id number]. res: clear to auscultation ,no rhonchii or wheezing abd: no rebound or guarding ,nt, bs present. ext pulses present , no cyanosis . neuro: axo3 , nonfocal. Objective Data Active Medications Acetaminophen (Acetaminophen 325 Mg Tablet) 650 mg PO Q6H PRN PRN Reason: Headache Alprazolam (Alprazolam 0.5 Mg Tablet) 0.5 mg PO BID PRN PRN Reason: Anxiety Last Admin: 01/26/24 23:11 Dose: 0.5 mg Documented By: RORO Bethanechol Chloride (Bethanechol Chloride 25 Mg Tablet) 25 mg PO BID [facility] Last Admin: 01/29/24 09:34 Dose: 25 mg Documented By: JANIYA Bumetanide (Bumetanide 1 Mg Tablet) 1 mg PO DAILY [facility]; Protocol Last Admin: 01/29/24 09:34 Dose: 1 mg Documented By: JANIYA Calcium Carbonate (Calcium Carbonate 750 Mg Tab.Chew) 750 mg PO Q6H PRN PRN Reason: Heartburn Cyanocobalamin (Cyanocobalamin (Vitamin B-12) 1,000 Mcg Tablet) 1,000 mcg PO BEDTIME [facility] Last Admin: 01/28/24 21:10 Dose: 1,000 mcg Documented By: KATHI Ezetimibe (Ezetimibe 10 Mg Tablet) 10 mg PO DAILY [facility] Last Admin: 01/27/24 08:14 Dose: 10 mg Documented By: HO.FOGARTB Ferrous Sulfate (Ferrous Sulfate 324 Mg Tablet.) 324 mg PO DAILY [facility] Last Admin: 01/29/24 09:34 Dose: 324 mg Documented By: JANIYA Finasteride (Finasteride 5 Mg Tablet) 5 mg PO DAILY [facility] Last Admin: 01/29/24 09:35 Dose: 5 mg Documented By: JANIYA Folic Acid (Folic Acid 1 Mg Tablet) 1 mg PO DAILY [facility] Last Admin: 01/29/24 10:15 Dose: 1 mg Documented By: JANIYA Glucose (Glucose Gel 15 Gm Gel..Gram.) 15 gm PO Q15M PRN; Protocol PRN Reason: per Hypoglycemia Standing Ord. Dextrose (D10) 250 mls @ 750 mls/hr IV Q15M PRN; Protocol PRN Reason: per Hypoglycemia Standing Ord. Ceftriaxone Sodium 1 gm/ (Sodium Chloride) 50 mls @ 100 mls/hr IV Q24H [facility] Last Infusion: 01/29/24 00:21 Dose: Infused Documented By: KATHI Octreotide Acetate 500 mcg/ (Sodium Chloride) 501 mls @ 50.1 mls/hr IVCONT .Q10H [facility] Last Admin: 01/29/24 13:01 Dose: 50 mcg/hr, 50.1 mls/hr Documented By: JANIYA Pantoprazole Sodium 80 mg/ (Sodium Chloride) 100 mls @ 10 mls/hr IV .Q10H [facility] Last Admin: 01/29/24 13:00 Dose: 8 mg/hr, 10 mls/hr Documented By: JANIYA Insulin Glargine (Insulin Glargine,Hum.Rec.Anlog 100 Unit/Ml 10 Ml Vial) 6 unit SUBCUT BEDTIME [facility] Last Admin: 01/27/24 22:33 Dose: Not Given Documented By: RORO Non-Admin Reason: Physician Approved Insulin Human Lispro (Insulin Lispro 100 Unit/Ml 3 Ml Vial) 0 unit SUBCUT QIDACHS [facility]; Protocol Last Admin: 01/29/24 11:30 Dose: Not Given Documented By: JANIYA Non-Admin Reason: No Insulin Coverage Lactulose (Lactulose 20 Gm/30 Ml Solution) 30 gm PO TID [facility] Last Admin: 01/29/24 16:03 Dose: 30 gm Documented By: HO.PHANLYM Magnesium Hydroxide (Milk Of Magnesia 30 Ml Oral.Susp) 30 ml PO DAILY PRN PRN Reason: Constipation Melatonin (Melatonin 3 Mg Tablet) 6 mg PO BEDTIME PRN PRN Reason: Insomnia Last Admin: 01/29/24 04:49 Dose: 6 mg Documented By: CASE Comments: Dr. Malik approved this late administration. Polyethylene Glycol (Polyethylene Glycol 3350 17 Gm Powd.Pack) 17 gm PO DAILY PRN PRN Reason: Constipation Sodium Chloride (0.9 % Sodium Chloride Flush 3 Ml Syringe) 3 ml IVFLUSH QSHIFT [facility] Last Admin: 01/29/24 15:35 Dose: Not Given Documented By: JANIYA Non-Admin Reason: IV Running Tamsulosin HCl (Tamsulosin Hcl 0.4 Mg Capsule) 0.4 mg PO DAILY [facility] Last Admin: 01/29/24 09:34 Dose: 0.4 mg Documented By: JANIYA Labs 01/28/24 06:24 01/28/24 06:24 Labs: Laboratory Results - last 24 hr 01/28/24 01/28/24 01/29/24 16:55 20:13 07:29 POC Glucose 163 H 181 H 112 01/29/24 11:26 POC Glucose 175 H Assessment and Plan (1) Ascites: Status: Acute (2) Acute on chronic anemia: Status: Acute (3) Decompensated hepatic cirrhosis: Status: Acute (4) Hypotension: Status: Acute Plan 78-year-old male with history of hepatic cirrhosis complicated by esophageal varices and ascites, insulin-dependent type 2 diabetes, diabetic 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, hypertension, hyperlipidemia, history of prostate cancer, ANUJA on CPAP, chronic iron deficiency anemia, CAD on DAPT, h/o endocarditis s/p bioprosthetic TAVR, s/p pacemaker admitted for further management of hepatic encephalopathy, acute on chronic anemia with concern for UGIB. Acute toxic metabolic encephalopathy related to hepatic encephalopathy head CT negative for any acute intracranial abnormality. Ammonia level 83- trending down to 76 mental status and ammonia levels somewhat improving continue lactulose 30 g t.i.d( patient refuses intermittently -reinforced for complance,staff awarea), titrate lactulose to achieve 2-3 loose bowel movements per day acute on chronic anemia with concern for upper GI bleed H/H 6.9/22.5%, s/p 2 units prbc -improved to 8.4 ,then 7.8, given 1 prbc , h/h still in range 7.8-8.0 background hepatic cirrhosis with history esophageal variceal banding. continue IV octreotide 50 mcg bolus then transitioned to drip at 50 per hour, PPI,IV ctx for prophylaxis,added another prbc s/p para -portal vein is patent and shows hepatopedal flow,trace perihepatic free fluid. egd:s/p varcel banding he follows with hematology- b12 def /renal insuff might contributin -continue b12 . continue iv octreotide and ppi drip for 1 more day then switch to oral ppi. moniter h/h Hypotension(mulitfactorial -anemia ,bp meds ,low albumin): resolved with prbc ,midodrine,fluids(01/26). h/h -stable in 8.4 range.vitals seems fine. acute hyperkalemia: improved. hold spironolactone hepatic cirrhosis complicated by esophageal varices, ascites hold spironolactone due to above,start bumex s/p egd-esophageal varices, portal hypertension, enteritis, duodenal polyps. Recommendations:Cont IV PPI, Octreotide and Ceftriaxone for 72h (from 01/26)after this procedure added propanalol 5 mg po bid. insulin-dependent type 2 diabetes POC glucose, advance to diabetic diet,avoid coverage below 200. CAD/HLD-hold ASA due to above last cardiac cath with PCI 01/2022 continue statin, bb, zetia BPH-continue tamsulosin, finasteride diabetic 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-hold gabapentin given sedation/encephalopathy ANUJA on CPAP-CPAP bedtime h/o endocarditis with H/O strep bacteremia 01/2023 -Follows with [facility] ID, [facility] but these have been discontinued DVT prophylaxis-compression Full code ongoing inpatient stay for further management of acute on chronic blood loss anemia requiring transfusion,varicel banding, cardic monitoring, and telemetry. He also has hepatic encephalopathy requiring titration of lactulose and close monitoring of mentation which can not be achieved in less acute setting Quality Stroke Does the patient have a stroke diagnosis?: No VTE Prior VTE?: No VTE Risk Level:: Medical - moderate - high VTE Device Contraindication: N/A - Device Ordered VTE Drug Contraindication: Treatment Not Indicated
[2024-01-29 16:33] LABS: Glucose, Whole Blood 224 mg/dL (60-115)
[2024-01-29] MEDS: Insulin Lispro 100 UNIT/ML 3 ML VIAL SUBCUT ×2 (17:02→21:02)
[2024-01-29] MEDS: cefTRIAXone sodium 1 GM in 0.9 % Sodium Chloride 50 ML IV (18:29)
[2024-01-29 20:04] LABS: Glucose, Whole Blood 204 mg/dL (60-115)
[2024-01-29] MEDS: Cyanocobalamin (Vitamin B-12) 1,000 MCG TABLET 1000 MCG PO (20:49)
[2024-01-29] MEDS: Propranolol HCL 10 MG TABLET 5 MG PO (20:50)
[2024-01-29] MEDS: 0.9 % Sodium Chloride Flush 3 ML SYRINGE IVFLUSH (20:52)
[2024-01-29] MEDS: Acetaminophen 325 MG TABLET 650 MG PO (23:30)
[2024-01-29] MEDS: ALPRAZolam 0.5 MG TABLET PO (23:30)
[2024-01-30] VITALS (8 sets, daily range): BP systolic 113–140; BP diastolic 54–63; PULSE 60–70; RESP 16–18; TEMP 36–37; O2SAT 95–100
[2024-01-30 07:35] LABS: Glucose, Whole Blood 129 mg/dL (60-115)
[2024-01-30] MEDS: Pantoprazole Sodium 80 MG in 0.9 % Sodium Chloride 80 ML 10 MG IV (08:31)
[2024-01-30 08:32] LABS: Hematocrit 30.7 % (42.0-52.0); Hemoglobin 9.5 g/dl (14.0-18.0); Mean Corpuscular HGB Conc 30.9 g/dl (31.0-36.0); Mean Corpuscular Hemoglobin 28.2 pg (27.0-33.0); Mean Corpuscular Volume 91.1 fL (80.0-98.0); Red Blood Count 3.37 X10*6/uL (4.60-5.80); Red Cell Distribution Width 15.6 % (11.0-16.0); White Blood Count 3.1 X10*3/uL (4.8-10.8)
[2024-01-30] MEDS: Octreotide Acetate 500 MCG in 0.9 % Sodium Chloride 500 ML 50.1 MCG IVCONT (08:32)
[2024-01-30] MEDS: Tamsulosin HCL 0.4 MG CAPSULE PO (08:35)
[2024-01-30] MEDS: Propranolol HCL 10 MG TABLET 5 MG PO ×2 (08:35→21:25)
[2024-01-30] MEDS: Finasteride 5 MG TABLET PO (08:35)
[2024-01-30] MEDS: Ferrous Sulfate 324 MG TABLET.DR PO (08:35)
[2024-01-30] MEDS: Bumetanide 1 MG TABLET PO (08:35)
[2024-01-30] MEDS: Bethanechol Chloride 25 MG TABLET PO ×2 (08:36→21:25)
[2024-01-30] MEDS: 0.9 % Sodium Chloride Flush 3 ML SYRINGE IVFLUSH ×3 (08:36→21:26)
[2024-01-30] MEDS: Folic Acid 1 MG TABLET PO (08:36)
[2024-01-30 08:42] LABS: Platelet Count 68 X10*3/uL (160-400)
[2024-01-30 11:52] LABS: Glucose, Whole Blood 170 mg/dL (60-115)
--- NOTE | 2024-01-30 14:47 | HO.PM.IMPN ---
Subjective Subjective Date of Service: 01/30/24 Interval History: anemia ,ascitis Review of Systems no abd pain ,feeling better had some diarrahe episode with lactulose no fever or chills Physical Exam Vital Signs: Vital Signs: Last Vital Signs Temp 98.3 F 01/30/24 11:31 Pulse 60 01/30/24 11:31 Resp 18 01/30/24 11:31 BP 119/58 L 01/30/24 11:31 Pulse Ox 95 01/30/24 14:44 O2 Del Method Room Air 01/30/24 14:44 O2 Flow Rate 1 01/30/24 07:45 Oxygen Flow Rate 2 01/29/24 17:00 BMI result Body Mass Index 27.4 Appearance: Alert.? Oriented X3.? cvs: rrr, [id number]. res: clear to auscultation ,no rhonchii or wheezing abd: no rebound or guarding ,nt, bs present. ext pulses present , no cyanosis . neuro: axo3 , nonfocal. Objective Data Active Medications Acetaminophen (Acetaminophen 325 Mg Tablet) 650 mg PO Q6H PRN PRN Reason: Headache Last Admin: 01/29/24 23:30 Dose: 650 mg Documented By: ALEXSANDER Alprazolam (Alprazolam 0.5 Mg Tablet) 0.5 mg PO BID PRN PRN Reason: Anxiety Last Admin: 01/29/24 23:30 Dose: 0.5 mg Documented By: ALEXSANDER Bethanechol Chloride (Bethanechol Chloride 25 Mg Tablet) 25 mg PO BID [facility] Last Admin: 01/30/24 08:36 Dose: 25 mg Documented By: DENNIS Bumetanide (Bumetanide 1 Mg Tablet) 1 mg PO DAILY [facility]; Protocol Last Admin: 01/30/24 08:35 Dose: 1 mg Documented By: DENNIS Calcium Carbonate (Calcium Carbonate 750 Mg Tab.Chew) 750 mg PO Q6H PRN PRN Reason: Heartburn Cyanocobalamin (Cyanocobalamin (Vitamin B-12) 1,000 Mcg Tablet) 1,000 mcg PO BEDTIME [facility] Last Admin: 01/29/24 20:49 Dose: 1,000 mcg Documented By: ALEXSANDER Ezetimibe (Ezetimibe 10 Mg Tablet) 10 mg PO DAILY [facility] Last Admin: 01/27/24 08:14 Dose: 10 mg Documented By: DOMENIC Ferrous Sulfate (Ferrous Sulfate 324 Mg Tablet.) 324 mg PO DAILY [facility] Last Admin: 01/30/24 08:35 Dose: 324 mg Documented By: DENNIS Finasteride (Finasteride 5 Mg Tablet) 5 mg PO DAILY [facility] Last Admin: 01/30/24 08:35 Dose: 5 mg Documented By: DENNIS Folic Acid (Folic Acid 1 Mg Tablet) 1 mg PO DAILY [facility] Last Admin: 01/30/24 08:36 Dose: 1 mg Documented By: DENNIS Glucose (Glucose Gel 15 Gm Gel..Gram.) 15 gm PO Q15M PRN; Protocol PRN Reason: per Hypoglycemia Standing Ord. Dextrose (D10) 250 mls @ 750 mls/hr IV Q15M PRN; Protocol PRN Reason: per Hypoglycemia Standing Ord. Ceftriaxone Sodium 1 gm/ (Sodium Chloride) 50 mls @ 100 mls/hr IV Q24H [facility] Last Infusion: 01/29/24 18:59 Dose: Infused Documented By: ALEXSANDER Insulin Glargine (Insulin Glargine,Hum.Rec.Anlog 100 Unit/Ml 10 Ml Vial) 6 unit SUBCUT BEDTIME [facility] Last Admin: 01/27/24 22:33 Dose: Not Given Documented By: RORO Non-Admin Reason: Physician Approved Insulin Human Lispro (Insulin Lispro 100 Unit/Ml 3 Ml Vial) 0 unit SUBCUT QIDACHS [facility]; Protocol Last Admin: 01/30/24 12:01 Dose: Not Given Documented By: DENNIS Non-Admin Reason: No Insulin Coverage Lactulose (Lactulose 20 Gm/30 Ml Solution) 30 gm PO TID [facility] Last Admin: 01/30/24 08:36 Dose: Not Given Documented By: DENNIS Non-Admin Reason: Patient Refused Magnesium Hydroxide (Milk Of Magnesia 30 Ml Oral.Susp) 30 ml PO DAILY PRN PRN Reason: Constipation Melatonin (Melatonin 3 Mg Tablet) 6 mg PO BEDTIME PRN PRN Reason: Insomnia Last Admin: 01/29/24 20:49 Dose: 6 mg Documented By: ALEXSANDER Omeprazole (Omeprazole 20 Mg Capsule.) 20 mg PO BID@0630,1630 [facility] Polyethylene Glycol (Polyethylene Glycol 3350 17 Gm Powd.Pack) 17 gm PO DAILY PRN PRN Reason: Constipation Propranolol HCl (Propranolol Hcl 10 Mg Tablet) 5 mg PO BID [facility]; Protocol Last Admin: 01/30/24 08:35 Dose: 5 mg Documented By: DENNIS Sodium Chloride (0.9 % Sodium Chloride Flush 3 Ml Syringe) 3 ml IVFLUSH QSHIFT [facility] Last Admin: 01/30/24 08:36 Dose: 3 ml Documented By: DENNIS Tamsulosin HCl (Tamsulosin Hcl 0.4 Mg Capsule) 0.4 mg PO DAILY [facility] Last Admin: 01/30/24 08:35 Dose: 0.4 mg Documented By: DENNIS Labs 01/30/24 08:16 01/28/24 06:24 Labs: Laboratory Results - last 24 hr 01/29/24 01/29/24 01/30/24 16:24 19:59 07:30 MCV MCH MCHC RDW Plt Count MPV Absolute Nucleated RBC Nucleated RBC % (auto) POC Glucose 224 H 204 H 129 H 01/30/24 01/30/24 08:16 11:49 MCV 91.1 MCH 28.2 MCHC 30.9 L RDW 15.6 Plt Count 68 L MPV 12.0 Absolute Nucleated RBC 0.000 Nucleated RBC % (auto) 0.0 POC Glucose 170 H Microbiology Microbiology Results: Microbiology 01/25/24 11:32 Blood Culture - Final Blood - Venous No growth after 5 days. 01/25/24 11:33 Blood Culture - Final Blood - Venous No growth after 5 days. Assessment and Plan (1) Acute on chronic anemia: Status: Acute (2) Decompensated hepatic cirrhosis: Status: Acute (3) Increased ammonia level: Status: Acute Assessment and Plan: 78-year-old male with history of hepatic cirrhosis complicated by esophageal varices and ascites, insulin-dependent type 2 diabetes, diabetic 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, hypertension, hyperlipidemia, history of prostate cancer, ANUJA on CPAP, chronic iron deficiency anemia, CAD on DAPT, h/o endocarditis s/p bioprosthetic TAVR, s/p pacemaker admitted for further management of hepatic encephalopathy, acute on chronic anemia with concern for UGIB. Acute toxic metabolic encephalopathy related to hepatic encephalopathy head CT negative for any acute intracranial abnormality. Ammonia level 83-trending down to 76 mental status and ammonia levels somewhat improving having diarrahe today hold lactulose . acute on chronic anemia with concern for upper GI bleed:background hepatic cirrhosis with history esophageal variceal banding. intial H/H 6.9/22.5%, s/p 4 prbc during this admission ,IV octreotide , as well as egd -s/p varcel banding s/p para -portal vein is patent and shows hepatopedal flow,trace perihepatic free fluid. hematology- b12 def /renal insuff might contributin -continue b12 . received total 4 prbc now h/h maintained between 8-9 range continue b12 ,ppi. will need hemtology followup. Hypotension(mulitfactorial -anemia ,bp meds ,low albumin): resolved with prbc ,midodrine,fluids(01/26). h/h -stable in9 range. acute hyperkalemia: improved. hold spironolactone hepatic cirrhosis complicated by esophageal varices, ascites hold spironolactone due to above,start bumex s/p egd-esophageal varices, portal hypertension, enteritis, duodenal polyps. Recommendations:Cont IV PPI, completed Octreotide and Ceftriaxone for 72h (from 01/26)after this procedure-switched to. propanalol 5 mg po bid. insulin-dependent type 2 diabetes POC glucose, advance to diabetic diet,avoid coverage below 200. CAD/HLD-hold ASA due to above last cardiac cath with PCI 01/2022 continue statin, bb, zetia BPH-continue tamsulosin, finasteride diabetic 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-hold gabapentin given sedation/encephalopathy ANUJA on CPAP-CPAP bedtime Generalized weakness: Added PT evaluation. DVT prophylaxis-compression Full code ongoing inpatient stay for further management of acute on chronic blood loss anemia requiring transfusion,varicel banding, cardic monitoring, and telemetry. He also has hepatic encephalopathy monitering ,also having diarrhae, we will also moniter 24 hours on oralppi,pt eval. Quality Stroke Does the patient have a stroke diagnosis?: No VTE Prior VTE?: No VTE Risk Level:: Medical - moderate - high VTE Device Contraindication: N/A - Device Ordered VTE Drug Contraindication: Treatment Not Indicated
[2024-01-30 16:03] LABS: Glucose, Whole Blood 222 mg/dL (60-115)
[2024-01-30] MEDS: Omeprazole 20 MG CAPSULE.DR PO (17:01)
[2024-01-30] MEDS: Insulin Lispro 100 UNIT/ML 3 ML VIAL SUBCUT (17:01)
[2024-01-30] MEDS: cefTRIAXone sodium 1 GM in 0.9 % Sodium Chloride 50 ML IV (21:21)
[2024-01-30] MEDS: Cyanocobalamin (Vitamin B-12) 1,000 MCG TABLET 1000 MCG PO (21:25)
[2024-01-30] MEDS: Acetaminophen 325 MG TABLET 650 MG PO (21:26)
[2024-01-30 22:14] LABS: Glucose, Whole Blood 148 mg/dL (60-115)
[2024-01-31] VITALS (9 sets, daily range): BP systolic 106–119; BP diastolic 47–59; PULSE 59–70; RESP 16–18; TEMP 36.6–36.9; O2SAT 93–99
[2024-01-31] MEDS: Omeprazole 20 MG CAPSULE.DR PO ×2 (06:04→16:41)
[2024-01-31 07:03] LABS: Glucose, Whole Blood 108 mg/dL (60-115)
[2024-01-31] MEDS: Ferrous Sulfate 324 MG TABLET.DR PO (08:18)
[2024-01-31] MEDS: Finasteride 5 MG TABLET PO (08:18)
[2024-01-31] MEDS: Propranolol HCL 10 MG TABLET 5 MG PO ×2 (08:18→20:59)
[2024-01-31] MEDS: Bumetanide 1 MG TABLET PO (08:18)
[2024-01-31] MEDS: Folic Acid 1 MG TABLET PO (08:18)
[2024-01-31] MEDS: Tamsulosin HCL 0.4 MG CAPSULE PO (08:18)
[2024-01-31] MEDS: 0.9 % Sodium Chloride Flush 3 ML SYRINGE IVFLUSH ×3 (08:19→21:00)
[2024-01-31] MEDS: Bethanechol Chloride 25 MG TABLET PO ×2 (08:20→20:59)
[2024-01-31 10:54] LABS: Glucose, Whole Blood 141 mg/dL (60-115)
--- NOTE | 2024-01-31 12:17 | P.PNIM_ITS ---
Subjective Subjective Date of Service: 01/31/24 Interval History: anemia Review of Systems no abd pain diarrhae improving ,has 1 bm this morning no new episode of bleeding no fever or chills Review of Systems: Yes all other systems are reviewed and are negative Physical Exam 2 Vital Signs: Vital Signs: Last Vital Signs Temp 97.8 F 01/31/24 10:58 Pulse 62 01/31/24 10:58 Resp 18 01/31/24 10:58 BP 119/56 L 01/31/24 10:58 Pulse Ox 98 01/31/24 10:58 O2 Del Method Room Air 01/31/24 10:58 O2 Flow Rate 1 01/30/24 07:45 Oxygen Flow Rate 2 01/29/24 17:00 BMI result Body Mass Index 27.4 Appearance: Alert.? Oriented X3.? cvs: rrr, [id number]. res: clear to auscultation ,no rhonchii or wheezing abd: no rebound or guarding ,nt, bs present. ext pulses present , no cyanosis . neuro: axo3 , nonfocal. Objective Data Active Medications Acetaminophen (Acetaminophen 325 Mg Tablet) 650 mg PO Q6H PRN PRN Reason: Headache Last Admin: 01/30/24 21:26 Dose: 650 mg Documented By: ALEXSANDER Bethanechol Chloride (Bethanechol Chloride 25 Mg Tablet) 25 mg PO BID [facility] Last Admin: 01/31/24 08:20 Dose: 25 mg Documented By: IGOR Bumetanide (Bumetanide 1 Mg Tablet) 1 mg PO DAILY [facility]; Protocol Last Admin: 01/31/24 08:18 Dose: 1 mg Documented By: IGOR Calcium Carbonate (Calcium Carbonate 750 Mg Tab.Chew) 750 mg PO Q6H PRN PRN Reason: Heartburn Cyanocobalamin (Cyanocobalamin (Vitamin B-12) 1,000 Mcg Tablet) 1,000 mcg PO BEDTIME [facility] Last Admin: 01/30/24 21:25 Dose: 1,000 mcg Documented By: ALEXSANDER Ezetimibe (Ezetimibe 10 Mg Tablet) 10 mg PO DAILY [facility] Last Admin: 01/27/24 08:14 Dose: 10 mg Documented By: DOMENIC Ferrous Sulfate (Ferrous Sulfate 324 Mg Tablet.) 324 mg PO DAILY [facility] Last Admin: 01/31/24 08:18 Dose: 324 mg Documented By: IGOR Finasteride (Finasteride 5 Mg Tablet) 5 mg PO DAILY [facility] Last Admin: 01/31/24 08:18 Dose: 5 mg Documented By: IGOR Folic Acid (Folic Acid 1 Mg Tablet) 1 mg PO DAILY [facility] Last Admin: 01/31/24 08:18 Dose: 1 mg Documented By: IGOR Glucose (Glucose Gel 15 Gm Gel..Gram.) 15 gm PO Q15M PRN; Protocol PRN Reason: per Hypoglycemia Standing Ord. Dextrose (D10) 250 mls @ 750 mls/hr IV Q15M PRN; Protocol PRN Reason: per Hypoglycemia Standing Ord. Ceftriaxone Sodium 1 gm/ (Sodium Chloride) 50 mls @ 100 mls/hr IV Q24H [facility] Last Infusion: 01/30/24 21:51 Dose: Infused Documented By: ALEXSANDER Insulin Glargine (Insulin Glargine,Hum.Rec.Anlog 100 Unit/Ml 10 Ml Vial) 6 unit SUBCUT BEDTIME [facility] Last Admin: 01/27/24 22:33 Dose: Not Given Documented By: RORO Non-Admin Reason: Physician Approved Insulin Human Lispro (Insulin Lispro 100 Unit/Ml 3 Ml Vial) 0 unit SUBCUT QIDACHS [facility]; Protocol Last Admin: 01/31/24 11:02 Dose: Not Given Documented By: IGOR Non-Admin Reason: No Insulin Coverage Lactulose (Lactulose 20 Gm/30 Ml Solution) 30 gm PO TID [facility] Last Admin: 01/31/24 08:23 Dose: Not Given Documented By: IGOR Non-Admin Reason: Patient Refused Magnesium Hydroxide (Milk Of Magnesia 30 Ml Oral.Susp) 30 ml PO DAILY PRN PRN Reason: Constipation Melatonin (Melatonin 3 Mg Tablet) 6 mg PO BEDTIME PRN PRN Reason: Insomnia Last Admin: 01/29/24 20:49 Dose: 6 mg Documented By: ALEXSANDER Omeprazole (Omeprazole 20 Mg Capsule.) 20 mg PO BID@0630,1630 [facility] Last Admin: 01/31/24 06:04 Dose: 20 mg Documented By: ALEXSANDER Polyethylene Glycol (Polyethylene Glycol 3350 17 Gm Powd.Pack) 17 gm PO DAILY PRN PRN Reason: Constipation Propranolol HCl (Propranolol Hcl 10 Mg Tablet) 5 mg PO BID [facility]; Protocol Last Admin: 01/31/24 08:18 Dose: 5 mg Documented By: IGOR Sodium Chloride (0.9 % Sodium Chloride Flush 3 Ml Syringe) 3 ml IVFLUSH QSHIFT [facility] Last Admin: 01/31/24 08:19 Dose: 3 ml Documented By: IGOR Tamsulosin HCl (Tamsulosin Hcl 0.4 Mg Capsule) 0.4 mg PO DAILY [facility] Last Admin: 01/31/24 08:18 Dose: 0.4 mg Documented By: IGOR Labs 01/30/24 08:16 01/28/24 06:24 Labs: Laboratory Results - last 24 hr 01/30/24 01/30/24 01/31/24 15:58 22:06 06:57 POC Glucose 222 H 148 H 108 01/31/24 10:48 POC Glucose 141 H Microbiology Microbiology Results: Microbiology 01/25/24 11:32 Blood Culture - Final Blood - Venous No growth after 5 days. 01/25/24 11:33 Blood Culture - Final Blood - Venous No growth after 5 days. Assessment and Plan (1) Acute on chronic anemia: Status: Acute (2) Decompensated hepatic cirrhosis: Status: Acute (3) Increased ammonia level: Status: Acute Assessment and Plan: 78-year-old male with history of hepatic cirrhosis complicated by esophageal varices and ascites, insulin-dependent type 2 diabetes, diabetic 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, hypertension, hyperlipidemia, history of prostate cancer, ANUJA on CPAP, chronic iron deficiency anemia, CAD on DAPT, h/o endocarditis s/p bioprosthetic TAVR, s/p pacemaker admitted for further management of hepatic encephalopathy, acute on chronic anemia with concern for UGIB. Acute toxic metabolic encephalopathy related to hepatic encephalopathy head CT negative for any acute intracranial abnormality. Ammonia level 83- trending down to 76 mental status improving, diarrahe improving ,has 1 bm today restarted lactulose . acute on chronic anemia with concern for upper GI bleed:background hepatic cirrhosis with history esophageal variceal banding. intial H/H 6.9/22.5%, s/p 4 prbc during this admission ,IV octreotide , as well as egd -s/p varcel banding s/p para -portal vein is patent and shows hepatopedal flow,trace perihepatic free fluid. hematology- b12 def /renal insuff might contributin -continue b12 . received total 4 prbc now h/h maintained between 8-9 range continue b12 ,ppi. will need hemtology followup. Hypotension(mulitfactorial -anemia ,bp meds ,low albumin): resolved with prbc ,midodrine,fluids(01/26). h/h -stable in9 range. acute hyperkalemia: improved. hold spironolactone hepatic cirrhosis complicated by esophageal varices, ascites hold spironolactone due to above,start bumex s/p egd-esophageal varices, portal hypertension, enteritis, duodenal polyps. Recommendations:Cont IV PPI, completed Octreotide and Ceftriaxone for 72h (from 01/26)after this procedure-switched to. propanalol 5 mg po bid. insulin-dependent type 2 diabetes POC glucose, advance to diabetic diet,avoid coverage below 200. CAD/HLD-hold ASA due to above last cardiac cath with PCI 01/2022 continue statin, bb, zetia BPH-continue tamsulosin, finasteride diabetic 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-hold gabapentin given sedation/encephalopathy ANUJA on CPAP-CPAP bedtime Generalized weakness: Added PT evaluation. DVT prophylaxis-compression Full code ongoing inpatient stay for further management of acute on chronic blood loss anemia requiring transfusion,varicel banding, cardic monitoring, and telemetry. He also has hepatic encephalopathy monitering ,also having diarrhae, we will also moniter 24 hours on oralppi,pt eval. Quality Stroke Does the patient have a stroke diagnosis?: No VTE Prior VTE?: No VTE Risk Level:: Medical - moderate - high VTE Device Contraindication: N/A - Device Ordered VTE Drug Contraindication: Treatment Not Indicated
[2024-01-31 16:26] LABS: Glucose, Whole Blood 236 mg/dL (60-115)
[2024-01-31] MEDS: Insulin Lispro 100 UNIT/ML 3 ML VIAL SUBCUT (16:40)
[2024-01-31 20:37] LABS: Glucose, Whole Blood 174 mg/dL (60-115)
[2024-01-31] MEDS: cefTRIAXone sodium 1 GM in 0.9 % Sodium Chloride 50 ML IV (20:59)
[2024-01-31] MEDS: Cyanocobalamin (Vitamin B-12) 1,000 MCG TABLET 1000 MCG PO (21:00)
[2024-02-01 03:07] VITALS: BP 121/56; PULSE 60; RESP 18; TEMP 36.8; O2SAT 96
[2024-02-01 06:09] LABS: Ammonia 75 umol/L (13-55); Hematocrit 29.7 % (42.0-52.0); Hemoglobin 9.3 g/dl (14.0-18.0)
[2024-02-01] MEDS: Omeprazole 20 MG CAPSULE.DR PO (06:11)
[2024-02-01 06:16] LABS: Anion Gap 12 (12-20); Blood Urea Nitrogen 40 mg/dL (9-16); Calcium 8.2 mg/dL (8.4-10.2); Carbon Dioxide 20 mmol/L (22-29); Chloride 111 mmol/L (96-108); Creatinine Clr Calc Pharmacy 45.3; Estimated Glomerular Filt Rate 53; Glucose Random 119 mg/dL (60-115); Potassium 3.6 mmol/L (3.3-5.1); Sodium 139 mmol/L (135-145)
[2024-02-01 07:38] VITALS: BP 133/60; PULSE 60; RESP 20; TEMP 36.9; O2SAT 96
[2024-02-01 08:12] LABS: Glucose, Whole Blood 125 mg/dL (60-115)
[2024-02-01 10:20] VITALS: PULSE 59
[2024-02-01] MEDS: Lactulose 20 GM/30 ML SOLUTION 30 GM PO (10:21)
[2024-02-01 10:22] VITALS: BP 133/60; PULSE 62
[2024-02-01] MEDS: Finasteride 5 MG TABLET PO (10:22)
[2024-02-01] MEDS: Propranolol HCL 10 MG TABLET 5 MG PO (10:22)
[2024-02-01] MEDS: Ferrous Sulfate 324 MG TABLET.DR PO (10:22)
[2024-02-01] MEDS: Bethanechol Chloride 25 MG TABLET PO (10:22)
[2024-02-01] MEDS: Tamsulosin HCL 0.4 MG CAPSULE PO (10:22)
[2024-02-01] MEDS: Bumetanide 1 MG TABLET PO (10:22)
[2024-02-01] MEDS: Folic Acid 1 MG TABLET PO (10:23)
[2024-02-01] MEDS: 0.9 % Sodium Chloride Flush 3 ML SYRINGE IVFLUSH (10:23)
[2024-02-01 10:53] VITALS: BP 140/65; PULSE 63; RESP 16; TEMP 36.3; O2SAT 98
[2024-02-01 11:47] LABS: Glucose, Whole Blood 253 mg/dL (60-115)
[2024-02-01] MEDS: Insulin Lispro 100 UNIT/ML 3 ML VIAL SUBCUT (12:15)
--- NOTE | 2024-02-01 12:50 | P.DS_ITS ---
DS: Providers Provider Date of Service: 02/01/24 Date of admission: 01/25/24 14:41 Date of discharge: 02/01/24 Primary care physician: Roberto Carlos Cisneros PA-C Consults: 01/25/24 14:46 Consult to Gastroenterology Routine Consulting Provider: Arsenio Burns Reason for consultation: melena, anemia 01/26/24 15:28 Consult to Critical Care Routine Consulting Provider: Randolph Barbour Reason for consultation: level of care Has provider been notified: No 01/27/24 07:32 Consult to Hematology / Oncology Routine Consulting Provider: Wanda Nielsen Reason for consultation: anemia Has provider been notified: No Attending physician on discharge: Wei Nur Discharging clinician: Wei Nur DS: Diagnosis Discharge Diagnosis (1) Acute on chronic anemia: Status: Acute (2) Decompensated hepatic cirrhosis: Status: Acute (3) Increased ammonia level: Status: Acute DS: Summary Hospital Course Hospital Course: HPI: 78-year-old male with history of hepatic cirrhosis complicated by esophageal varices and ascites, insulin-dependent type 2 diabetes, diabetic 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, hypertension, hyperlipidemia, history of prostate cancer, ANUJA on CPAP, chronic iron deficiency anemia, CAD on DAPT, h/o endocarditis s/p bioprosthetic TAVR, s/p pacemaker presented to the ED from [facility] for evaluation of weakness, malaise, fatigue that started this morning. He has chronic iron- deficiency anemia and has been requiring weekly transfusions. He is being considered for bone marrow aspiration/biopsy by Dr. Nielsen. He does report he had an episode of melena about 3 days ago but denies any recurrence, hematemesis, hematochezia. He was also felt to be confused while in the ED though is oriented x3 and remembers this provider's name on exam. He is noted to be slurring his speech slightly with some confusion as to medication admi nistration. He states he was prescribed oxycodone but he is unclear on why he took this last night though then does endorse chronic pain in the back radiating into the left lower extremity. Denies any fevers, chills, abdominal pain, nausea, vomiting, diarrhea, urinary symptoms, palpitations, shortness of breath, lightheadedness, or chest pain. On arrival, blood pressure soft but no hypotension, otherwise stable. He is pancytopenia with WBC 3.5, consistent with baseline. H/H 6.9/22.5%, platelets 98. Renal function consistent with baseline. Mild hyperkalemia 5.8. Lactic acid 1.2. Ammonia level 83. CXR shows no acute cardiopulmonary abnormality. Head CT negative for any acute intracranial pathology but shows chronic microangiopathy. Urinalysis unremarkable. VBG reassuring with pH 7.32 low bicarb level at 17. PT 14.0, INR 1.2. Urine drug screen positive for oxycodone. Negative for influenza, COVID- 19, RSV. In the ED, given 5 units regular insulin, 10 g lactulose, started on gentle fluids and being transfused 2 units packed red blood cells. Hospital course: 78-year-old male with history of hepatic cirrhosis complicated by esophageal varices and ascites ,anemia multifactorial( possible GI blood loss,b12 ,aocd)- admitted for Acute toxic metabolic encephalopathy related to hepatic encephalopathy-found to have elevated ammonia ,head CT negative for any acute intracranial abnormality,also has acute on ch anemia with concern for upper GI bleed-received 4 prbc ,fluids,middrine during this admisison and also received lactulose for encephalopathy, inaddition seen by Gi for Gi bleed -asa placed on hold,received iv octreotide,ppi ,iv ceftriaxone for sbp prophylax, received 4 prbc as well ,s/p egd (01/26)-s/p egd-esophageal varices, portal hypertension, enteritis, duodenal polyps.,s/p us -portal vein is patent and shows hepatopedal flow,trace perihepatic free fluid: subsequently h/h monitered seems stable in range 9.3/29.7 ,platlets 68 range . Afterwards patient H&H as above stays stable, GI recommended to switch PPI to p.o., can resume aspirin. patient already completed 6 days of ceftriaxone , 1 more day cipro 500 mg. during egd biopsy of duodenum was done - Follow biopsy results with Gi outpatient. patient toxic metabolic encephalopathy seems to be improved significantly, ammonia level trending down, patient passing bowels, continue lactulose, goal BMs 3/day. hold ativan and gabapentin until seen by pcp ,then can slowly introduce these meds if needed outpatiently. hypotension episode -received prbc and midodrine,fluids-improved. acute hyperkalemia: improved with holding spirnolactone( hold now) ,repeat bmp ,further use outpatient as per pcp. dm with flactuating fs : lantus adjusted to 6 units ,moniter fs at home , further management outapatient. follow up cbc,cmp,ammonia levels outapatient. follow up with pcp ,Dr nielsen ( hematology) for further anemia workup ,Dr aguilera (GI). plan: continue lactulose, goal BMs 3/day. hold ativan and gabapentin until seen by pcp ,then can slowly introduce these meds if needed outpatiently due to toxic metabolic encephalopathy . moniter electrolytes and liver functions as well as ammonia level outpatient. Lantus adjusted to 6 unit at bedtime due to fluctuating fingersticks. Spironolactone on hold due to hyperkalemia. Check renal function electrolytes out patiently. Anemia-monitor CBC outpatient, continue B12. Also follow-up with GI biopsy result out patiently. follow up with pcp ,Dr nielsen ( hematology) for further anemia workup ,Dr aguilera (GI). Above management discussed with the patient in detail length she understand and in agreement with the above plan, time spent 40 minutes and 50% time spent on co unseling. Time Attestation Total time managing care of this patient today: 40 mintues. Discharge Coordination Time (in mins): 40 min Quality: Safe Use of Opioids Does Pt have an Active Cancer Diagnosis on the Problem List?: No Quality: Stroke Does the patient have a stroke diagnosis?: No Physical Exam Vital Signs: Vital Signs: Last Vital Signs Temp 97.4 F 02/01/24 10:53 Pulse 63 02/01/24 10:53 Resp 16 02/01/24 10:53 BP 140/65 H 02/01/24 10:53 Pulse Ox 98 02/01/24 10:53 O2 Del Method Room Air 02/01/24 10:53 O2 Flow Rate 1 01/30/24 07:45 Oxygen Flow Rate 2 01/29/24 17:00 BMI result Body Mass Index 27.4 Appearance: Alert.? Oriented X3.? cvs: rrr, [id number]. res: clear to auscultation ,no rhonchii or wheezing abd: no rebound or guarding ,nt, bs present. ext pulses present , no cyanosis . neuro: axo3 , nonfocal. DS: Data Data Completed and Pending Completed studies during hospitalization [Text1]: Pending at discharge 01/27/24 12:11 Surgical [PTH] Routine Procedures Destruction of Bladder Neck, Via Natural or Artificial Opening Endoscopic (06/17/22) Extirpation of Matter from Bladder, Via Natural or Artificial Opening Endoscopic (06/17/22) Transfusion of Nonautologous Red Blood Cells into Peripheral Vein, Percutaneous Approach (11/09/23) Pending studies at discharge: Pending at discharge 01/27/24 12:07 Cytology [PTH] Urgent Labs on day of discharge: Laboratory Results - last 24 hr 01/31/24 01/31/24 02/01/24 16:19 20:29 05:47 Hgb 9.3 L Hct 29.7 L Sodium 139 Potassium 3.6 Chloride 111 H Carbon Dioxide 20 L Anion Gap 12 BUN 40 H Creatinine 1.30 Estim Creat Clear Calc 45.3 Estimated GFR 53 POC Glucose 236 H 174 H Random Glucose 119 H Calcium 8.2 L Ammonia 75 H 02/01/24 02/01/24 07:42 10:58 Hgb Hct Sodium Potassium Chloride Carbon Dioxide Anion Gap BUN Creatinine Estim Creat Clear Calc Estimated GFR POC Glucose 125 H 253 H Random Glucose Calcium Ammonia Imaging Chest x-ray: Radiologist's impression: ITS Impressions Chest X-Ray 01/25/24 11:50 IMPRESSION: No acute abnormality. No evidence of pneumonia or congestive heart failure. Head CT 01/25/24 11:59 IMPRESSION: No intracranial hemorrhage or other acute intracranial pathology compared to 11/04/2023. 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 Abdomen Ultrasound 01/27/24 13:17 IMPRESSION: 1. The portal vein is patent and shows hepatopedal flow. 2. There is generalized increase in hepatic echotexture, consistent with fatty infiltration or hepatocellular disease. Please correlate clinically. No focal hepatic mass or intrahepatic biliary dilatation is seen. 3. There is trace perihepatic free fluid. 4. Technically limited ultrasound examination the pancreas. Discharge Plan Discharge Anticipated Discharge Date/Time: 02/01/24 11:42 Patient Disposition: Home Health Service Discharge Diagnosis: hepatic encephaloptahy ,anemia , hypotension,acute hyperkalemia Referrals: Wanda Nielsen MD [Physician] - 1 Week Roberto Carlos Cisneros PA-C [Primary Care Provider] - 1 Week Edna Aguilera MD [Physician] - 1 Week Discharge Medications: New lactulose 20 gram/30 mL Solution 30 g PO TID Qty: 900 0RF ciprofloxacin HCl 500 mg tablet 500 mg PO ONCE Qty: 1 0RF Continued (DME) FreeStyle Marleni 14 Day Hamler Misc See Rx Instructions .Route Qty: 1 0RF Rx Instructions: As directed (DME) FreeStyle Marleni 14 Day Sensor Kit See Rx Instructions .Route Qty: 2 2RF Rx Instructions: As directed (DME) blood-glucose meter [FreeStyle Lite Meter] Kit See Rx Instructions .Route Qty: 1 0RF Rx Instructions: As directed folic acid 800 mcg tablet 0.8 mg PO DAILY 30 Days Qty: 30 3RF bethanechol chloride 25 mg tablet 25 mg PO BID 90 Days Qty: 180 1RF (DME) pen needle, diabetic [BD Ultra-Fine Gifty Pen Needle] 32 gauge x 5/32 needle See Rx Instructions .ROUTE .MEDSUPPLY Qty: 50 3RF Rx Instructions: As directed (DME) pen needle, diabetic [BD Gifty 2nd Gen Pen Needle] 32 gauge x 5/32 needle See Rx Instructions .MEDSUPPLY Qty: 150 5RF Rx Instructions: 4 times a day Farxiga 10 mg tablet 10 mg PO DAILY 30 Days Qty: 30 3RF tamsulosin 0.4 mg capsule 0.4 mg PO DAILY 90 Days Qty: 90 1RF bumetanide 1 mg tablet 1 mg PO DAILY 90 Days Qty: 90 1RF finasteride [Proscar] 5 mg tablet 5 mg PO DAILY 90 Days Qty: 90 1RF insulin aspart U-100 [Novolog FlexPen U-100 Insulin] 100 unit/mL (3 mL) insulin pen 20 unit subcut TID 30 Days Qty: 15 3RF Rx Instructions: see directions per sliding scale subcutaneously 3 times a day; Blood sugar 70-130- take 0 units Blood sugar 131-180- take 4 units Blood sugar 181-240- take 8 units Blood sugar 241-to 300- take 10 units Blood sugar 301-to 350- take 12 units Blood sugar 351-400- take 16 units Blood sugar over 400 please call PCP ezetimibe [Zetia] 10 mg tablet 10 mg PO DAILY Qty: 30 3RF (DME) FreeStyle Test Strip See Rx Instructions .Route Qty: 100 3RF Rx Instructions: three times per day atorvastatin 80 mg tablet 40 mg PO BEDTIME cyanocobalamin (vitamin B-12) 500 mcg Tablet 1,000 mcg PO BEDTIME Trulicity 0.75 mg/0.5 mL Pen Injector 0.75 mg SUBCUT MO (DME) lancets [FreeStyle Lancets] 28 gauge misc See Rx Instructions .Route Qty: 100 6RF Rx Instructions: As directed three times per day (DME) blood pressure test kit-large Kit See Rx Instructions .Route Qty: 1 0RF Rx Instructions: As directed carvedilol 6.25 mg tablet 6.25 mg PO BID 30 Days Qty: 60 3RF Rx Instructions: must administer with a meal/food pantoprazole 40 mg tablet,delayed release (DR/EC) 40 mg PO DAILY Qty: 30 3RF aspirin [Adult Aspirin Regimen] 81 mg tablet,delayed release (DR/EC) 81 mg PO DAILY 30 Days Qty: 30 3RF Hold Instructions: Resume on 11/13/23. ferrous sulfate 325 mg (65 mg iron) tablet,delayed release (DR/EC) 325 mg PO DAILY Changed insulin degludec [Tresiba FlexTouch U-100] 100 unit/mL (3 mL) insulin pen 6 unit subcut BEDTIME Qty: 15 0RF Held alprazolam 0.5 mg tablet 0.5 mg PO BID PRN (Reason: Anxiety) 30 Days Qty: 60 2RF Hold Instructions: Resume on 02/09/24. gabapentin 400 mg capsule 400 mg PO BID 90 Days Qty: 180 1RF Hold Instructions: Resume on 02/09/24. Discontinued spironolactone 100 mg tablet 50 mg PO DAILY Qty: 60 0RF Protocol: Hold for SBP< HOLD for SBP < : 120 Discharge Orders: Discharge Order (Routine); Ordered 02/01/24 Ordered By: Wei Nur Diet: Advance to usual diet Activity on Discharge: As tolerated Stand Alone Forms: Patient Portal Discharge page Print Language: Tongan Other Ambulatory Orders: Ammonia (Routine) Timeframe: 1 Week Facility: [facility] - Location: Laboratory Ordered By: Wei Nur Complete Blood Count no Diff (Routine) Timeframe: 1 Week Facility: [facility] - Location: Laboratory Ordered By: Wei Nur Comprehensive Met. Panel (Routine) Timeframe: 1 Week Facility: [facility] - Location: Laboratory Ordered By: Wei Nur Care Plan Goals: 78-year-old male with history of hepatic cirrhosis complicated by esophageal varices and ascites ,anemia -admitted for Acute toxic metabolic encephalopathy related to hepatic encephalopathy-found to have elevated ammonia ,head CT negative for any acute intracranial abnormality,also has acute on ch anemia with concern for upper GI bleed-received 4 prbc ,fluids,middrine during this admisison and also received lactulose for encephalopathy, inaddition seen by Gi for Gi bleed -asa placed on hold,received iv octreotide,ppi ,iv ceftriaxone for sbp prophylax, received 4 prbc as well ,s/p egd (01/26)-s/p egd-esophageal varices, portal hypertension, enteritis, duodenal polyps.,s/p us -portal vein is patent and shows hepatopedal flow,trace perihepatic free fluid: subsequently h/h monitered seems stable in range 9.3/29.7 ,platlets 68 range . Afterwards patient H&H as above stays stable, GI recommended to switch PPI to p.o., can resume aspirin. patient already completed 6 days of ceftriaxone , 1 more day cipro 500 mg. during egd biopsy of duodenum was done - Follow biopsy results. Our office will call or send a letter with results within 7-10 days. patient toxic metabolic encephalopathy seems to be improved significantly, ammonia level trending down, patient passing bowels, continue lactulose, goal BMs 3/day. hold ativan and gabapentin until seen by pcp ,then can slowly introduce these meds if needed outpatiently. hypotension episode -received prbc and midodrine,fluids-improved. acute hyperkalemia: improved with holding spirnolactone( hold now) ,repeat bmp ,further use outpatient as per pcp. dm with flactuating fs : lantus adjusted to 6 units ,moniter fs at home , further management outapatient. follow up cbc,cmp,ammonia levels outapatient. follow up with pcp ,Dr nielsen ( hematology) for further anemia workup ,Dr aguilera (GI). Health Concerns: as above. Plan of Treatment: as above. Assessment: as above.
--- NOTE | 2024-02-01 13:00 | MHC.CM.PN ---
Pt has been medically cleared for DC, he will go home today via family transport and have home care service from [facility]. CM was active with [facility] prior to hosp stay, and CM confirmed that this is pt choice via son / HCP.
== END 2024-02-01 13:43 | disposition home health service (06) | DRG 432 ==
LOC: HO.ED 13:34 → HO.EDOVER 15:00 → HO.IMC 16:53
PROVIDERS: Internal Medicine; Registered Nurse Emergency; Admitting Provider Physician Assistant; Emergency Provider Emergency Medicine; PCP Physician Assistant; Visit Provider Internal Medicine
PROC: 0DJ08ZZ Inspection of Upper Intestinal Tract, Via Natural or Artificial Opening Endoscopic (ICD-10-PCS; CPT 43235; principal; 2024-01-27 15:20)
DX: K74.69 Other cirrhosis of liver (principal); G92.8 Other toxic encephalopathy; K25.4 Chronic or unspecified gastric ulcer with hemorrhage; I85.11 Secondary esophageal varices with bleeding; D62 Acute posthemorrhagic anemia; K76.6 Portal hypertension; R18.8 Other ascites; D68.4 Acquired coagulation factor deficiency; K76.82 Hepatic encephalopathy; I95.9 Hypotension, unspecified; I25.10 Atherosclerotic heart disease of native coronary artery without angina pectoris; E11.42 Type 2 diabetes mellitus with diabetic 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; G47.33 Obstructive sleep apnea (adult) (pediatric); E87.5 Hyperkalemia; E78.5 Hyperlipidemia, unspecified; K31.7 Polyp of stomach and duodenum; K31.89 Other diseases of stomach and duodenum; D51.9 Vitamin B12 deficiency anemia, unspecified; N40.0 Benign prostatic hyperplasia without lower urinary tract symptoms; Z20.822 Contact with and (suspected) exposure to COVID-19; Z91.041 Radiographic dye allergy status; Z91.040 Latex allergy status; Z85.46 Personal history of malignant neoplasm of prostate; Z95.0 Presence of cardiac pacemaker; Z95.5 Presence of coronary angioplasty implant and graft; Z95.2 Presence of prosthetic heart valve; Z79.4 Long term (current) use of insulin; Z79.82 Long term (current) use of aspirin; Z79.85 Long-term (current) use of injectable non-insulin antidiabetic drugs; Z79.899 Other long term (current) drug therapy
CPT/HCPCS: 0241U; 36415; 70450; 71046; 76705; 80048; 80053; 80076; 80307; 81001; 81003; 82140; 82272; 82607; 82728; 82746; 82803; 82947; 83010; 83540; 83605; 83615; 83735; 83880; 84484; 85014; 85018; 85025; 85027; 85610; 86850; 86900; 86901; 86923; 87040; 88305; 93005; 97162; 99285; C9113; J0131; J0171; J0330; J0696; J1170; J2270; J2354; J2704; J3420; P9016; P9047

== ENCOUNTER → 2024-01-25 11:02 | Outpatient (BNV) | payer MEDICARE, SELFPAY | PROVIDERS: Emergency Provider Emergency Medicine; PCP Physician Assistant; Visit Provider Internal Medicine Cardiovascular Disease | DX: R94.31 Abnormal electrocardiogram [ECG] [EKG] (principal) | CPT/HCPCS: 93010 ==

== ENCOUNTER → 2024-01-25 14:41 | Outpatient (BNV) | payer MEDICARE, SELFPAY | PROVIDERS: Admitting Provider Physician Assistant; Emergency Provider Emergency Medicine; PCP Physician Assistant; Visit Provider Physician Assistant | DX: K72.90 Hepatic failure, unspecified without coma (principal); K74.60 Unspecified cirrhosis of liver; I95.0 Idiopathic hypotension | CPT/HCPCS: 99223; 99232; 99239 ==

== ENCOUNTER → 2024-01-25 14:41 | Outpatient (BNV) | payer MEDICARE, SELFPAY | PROVIDERS: Admitting Provider Physician Assistant; Emergency Provider Emergency Medicine; PCP Physician Assistant; Visit Provider Internal Medicine | DX: K92.2 Gastrointestinal hemorrhage, unspecified (principal); K74.60 Unspecified cirrhosis of liver; K31.7 Polyp of stomach and duodenum; I85.00 Esophageal varices without bleeding | CPT/HCPCS: 43239; 43244; 99223 ==

== ENCOUNTER 2024-02-10 13:09 | Outpatient (AMB) | payer MEDICARE, SELFPAY ==
--- NOTE | 2024-02-10 13:11 | MHC.PC.OV ---
Vital Signs 02/10/24 13:12 Height 5 ft 9 in Weight 173 lb 8 oz BMI 25.6 BP 108/56 L Blood Pressure Location Lt brachial Position Sitting Pulse 60 Pulse Source Pulse Oximeter Pulse Oximetry (%) 99 Oxygen Delivery Method Room Air Intake Visit Reasons: [facility] 01/31-encephalopathy Podopediatrician Required: No Accompanied by: Spouse Allergies KARL Inhibitors Allergy (Severe, Verified 02/10/24 13:24) Angioedema dextran 40 [DEXTRAN 40] Allergy (Intermediate, Verified 02/10/24 13:24) tachycardia latex [LATEX] Allergy (Mild, Verified 02/10/24 13:24) BLISTERS lisinopril [From Zestril] Allergy (Mild, Verified 02/10/24 13:24) Unknown Iodinated Contrast Media [CONTRAST,IV] Allergy (Unknown, Verified 02/10/24 13:24) UNKNOWN Medication List - Last Reconciled 02/10/24 by Roberto Carlos Cisneros PA-C alprazolam 0.5 mg PO BID PRN 30 days aspirin (Adult Aspirin Regimen) 81 mg PO DAILY 30 days atorvastatin 40 mg PO BEDTIME bethanechol chloride 25 mg PO BID 90 days blood pressure test kit-large As directed blood sugar diagnostic (FreeStyle Test strips) three times per day blood-glucose meter (FreeStyle Lite Meter kit) As directed bumetanide 1 mg PO DAILY 90 days carvedilol 6.25 mg PO BID 30 days cyanocobalamin (vitamin B-12) 1,000 mcg PO BEDTIME dapagliflozin propanediol (Farxiga) 10 mg PO DAILY 30 days dulaglutide (Trulicity) 0.75 mg subcut MO ezetimibe (Zetia) 10 mg PO DAILY ferrous sulfate 325 mg PO DAILY finasteride (Proscar) 5 mg PO DAILY 90 days flash glucose scanning reader (FreeStyle Marleni 14 Day Hudson) As directed flash glucose sensor (FreeStyle Marleni 14 Day Sensor kit) As directed folic acid 0.8 mg PO DAILY 30 days gabapentin 400 mg PO BID 90 days insulin aspart U-100 (Novolog FlexPen U-100 Insulin aspart) 20 units (0.2 mL) subcut TID 30 days insulin degludec (Tresiba FlexTouch U-100 insulin) 6 units (0.06 mL) subcut BEDTIME lancets (FreeStyle Lancets) As directed three times per day pantoprazole 40 mg PO DAILY pen needle, diabetic (BD Gifty 2nd Gen Pen Needle) 4 times a day pen needle, diabetic (BD Ultra-Fine Gifty Pen Needle) As directed tamsulosin 0.4 mg PO DAILY 90 days Tobacco use date assessed: 10/21/23 Fall risk assessment: No Falls in past year Last assessed Fall Risk: 02/10/24 Dental Screening Dental Screen Date: 10/21/23 [facility] 01/31-encephalopathy HPI Details patient is a 78-year-old male here today for a hospital discharge follow-up. Patient has a past medical history significant for aortic stenosis, type 2 diabetes, hypertension, h/o Prostate cancer, morbid obesity, anxiety, h/o bleed ulcer with anemia. Patient recently admitted for acute toxic metabolic encephalopathy related to hepatic encephalopathy. His head CT was negative for any acute intracranial abnormality. Also was found to be fairly anemic and received blood transfusion fluids and midodrine during admission. He was found to have a high ammonia level and was started on lactulose. He did undergo an endoscopy which did show esophageal varices, portal hypertension enteritis and duodenal polyps. His gabapentin and alprazolam have been held due to the encephalopathy. His spironolactone also held due to hyperkalemia. His Lantus was adjusted 6 units at night due to erratic blood sugar readings. He is due for repeat endoscopy and colonoscopy in early April 2024. Type 2 diabetes complicated by neuropathy: Patient's most recent A1c is 6.2. He continues on Tresiba 16 units at night and NovoLog sliding scale.. He does have neuropathy has been on gabapentin over 20 years. Will restart gabapentin at lower dose 300 mg b.i.d.. Hepatic Encephalopathy: He is doing well from a mentation point of view. He does report he has stopped using lactulose. He has only had 1 bowel movement per day. Goal is to have 3 bowel movements per day. Will restart lactulose twice a day to produce a goal of 3 bowel movements per day. Patient understands and agrees to do so. 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 bug exterminator (current) use of insulin Diabetes type 2, uncontrolled Varices of esophagus determined by endoscopy Esophageal varices without bleeding KOEHLER (dyspnea on exertion) Chronic fatigue Iron deficiency anemia CAD (coronary artery disease) ANUJA on CPAP Prostate cancer Spinal stenosis On beta kayy at home IBS (irritable colon syndrome) Aortic stenosis HTN (hypertension) Polyneuropathy GERD (gastroesophageal reflux disease) Surgical History (Updated 02/09/24 @ 00:04 by Alexis Andrews) S/P infectious endocarditis H/O cataract extraction Hx of endoscopy History of colonoscopy Hx of esophagogastroduodenoscopy Hx of colonoscopy History of surgery History of transurethral resection of prostate History of surgery History of heart artery stent Family History Father CVD (cardiovascular disease) Past heart attack Mother CVD (cardiovascular disease) Brain cancer Heart problem Daughter Breast cancer Sister Breast cancer Son Alive and well Family/Other Myocardial infarction Liver cancer Social History Household Members: Spouse Household Members Other:: Myesha Housing: House Are you a primary hourly caregiver to a significant other at home: No Do you presently have visiting nurse or other home services: Yes (RN 2 x a week) Alcohol intake: never Patient Tobacco Use Status: Never used Tobacco e-Cigarette/Vaping Use: Never Used Second Hand Smoke Exposure: No Advance Directives Date on File: 08/31/23 service: No Current occupational status: retired Cognitive needs: No Hearing needs: No Vision needs: Yes Questionnaire PHQ-9 Over the last 2 weeks, how often have you been bothered by any of the following problems? 1. Little interest or pleasure in doing things: not at all 2. Feeling down, depressed, or hopeless: nearly every day 3. Trouble falling or staying asleep, or sleeping too much: not at all 4. Feeling tired or having little energy: not at all 5. Poor appetite or overeating: more than half the days 6. Feeling bad about yourself - or that you are a failure or have let yourself or your family down: not at all 7. Trouble concentrating on things, such as reading the newspaper or watching television: not at all 8. Moving or speaking so slowly that other people could have noticed. Or the opposite - being so fidgety or restless that you have been moving around a lot more than usual: not at all 9. Thoughts that you would be better off or of hurting yourself in some way: not at all Total score: 5 Depression Screening Interpretation: Negative Depression Screening Done: Yes 72959 - PHQ-9 Billing: Yes Source: Developed by Drs. Andrew Miranda, Jose Vasquez and colleagues, with an educational tanya from [employer]. Thrive Questionnaire Date Thrive assessed: 01/26/24 AUDIT C Alcohol Use Questionnaire (AUDIT-C) 1. How often do you have a drink containing alcohol?: Never 3. How often do you have six or more drinks on one occasion?: Never Total Score: 0 Score Reviewed/Action Taken: Yes GISELA-7 AMB Questionnaire GISELA-7 Date GISELA - 7 assessed: 02/10/24 Feeling nervous, anxious, or on edge: 0 = Not at all Not being able to stop or control worryin = Not at all Worrying too much about different things: 0 = Not at all Trouble relaxin = Not at all Being so restless that it is hard to sit still: 0 = Not at all Becoming easily annoyed or irritable: 0 = Not at all Feeling afraid as if something awful might happen: 0 = Not at all Total GISELA-7 score (0-4 normal; 5-9 mild; 10-14 moderate; 15-21 severe): 0 Source: Developed by Drs. Andrew Miranda, Cristiane Zabala, Jose Jenkins and colleagues, with an educational tanya from [employer]. GISELA-7 Assessment Billing GISELA-7 Assessment Tool: GISELA-7 Assessment 71769 Review of Systems Const Denies headache(s) Eyes Denies loss of vision ENT Denies vertigo, Denies dizziness, Denies headache(s) and Denies sore throat Card Denies chest pain, Denies leg edema and Denies lightheadedness Resp Denies cough, Denies hemoptysis and Denies wheezing GI Denies abdominal pain, Denies melena, Denies constipation, Denies diarrhea and Denies vomiting Denies dysuria, Denies urinary frequency and Denies urinary urgency Musc Denies arthralgias, Denies joint swelling, Denies numbness and Denies tingling Neuro Denies Abnormal speech present, Denies behavioral changes, Denies vertigo, Denies dizziness, Denies headache(s), Denies loss of vision, Denies memory loss, Denies numbness and Denies tingling Psych Denies anxiety, Denies behavioral changes, Denies depression, Denies memory loss and Denies panic attacks Anmol/Lymph Denies easy bleeding and Denies easy bruising Aller/Immun Denies wheezing Physical exam (Primary Care) Vital Signs: Last Vital Signs Pulse 60 02/10/24 13:12 BP 108/56 L 02/10/24 13:12 Pulse Ox 99 02/10/24 13:12 Oxygen Delivery Method Room Air 02/10/24 13:12 BMI result Body Mass Index 25.6 Tobacco/Smoking Status: Tobacco use Status Tobacco use date assessed 10/21/23 02/10/24 13:22 Patient Tobacco Use Status Never used Tobacco 02/10/24 13:22 e-Cigarette/Vaping Use Never Used 02/10/24 13:22 PHQ-9: PHQ-9 Score PHQ-9: Total score 5 02/10/24 13:22 Depression Screening Interpretation: Negative Thrive Assessment: Date of Thrive Assessment Date Thrive assessed 01/26/24 02/10/24 13:22 Const General: healthy appearing, no acute distress, alert and awake Nutritional Appearance: well nourished Orientation/consciousness: oriented to person, oriented to place and oriented to time HENMT Ears: TM's normal bilaterally General nose exam: Normal nasal mucous membranes and turbinates present Eyes Conjunctivae: conjunctivae normal Sclerae: sclerae normal Pupils: Equal, round and reactive pupils present Neck Neck: Yes no lymphadenopathy and Yes no JVD Thyroid: Thyroid normal Carotids: no bruits Resp Effort & Inspection: normal respiratory effort and not tachypneic Auscultation: no crackles, no rales, no rhonchi and no wheezes Cardio Rate: regular rate Rhythm: regular rhythm Heart sounds: no murmurs and normal S1 and S2 GI Palpation (GI): Soft to palpation, nontender, no hepatomegaly and no splenomegaly Auscultation: normal bowel sounds Skin General skin exam: no rashes or lesions noted and dry skin Neuro General: oriented to person, oriented to place and oriented to time Cranial nerves: Yes Equal, round and reactive pupils present Speech: No Abnormal speech present Gait exam (Neuro): Normal gait present Motor exam (neuro): no tremor noted Extrem Right upper extremity: full ROM Left upper extremity: full ROM Right lower extremity: full ROM; no edema Left lower extremity: full ROM; no edema Psych Mental Status: mental status grossly normal Speech and movement: Normal speech and movement present Affect: normal affect Attitude: cooperative Thought process: Normal thought process present Results AMB Hemoglobin A1c AMB Hemoglobin A1c 6.2 % Last Edit by JENNI Hudson on 02/10/24 13:35 Assessment and Plan Assessment & Plan (1) Hospital discharge follow-up: Code(s): Z09 - Encounter for follow-up examination after completed treatment for conditions other than malignant neoplasm Plan: As per HPI (2) Hepatic encephalopathy: Code(s): K76.82 - Hepatic encephalopathy Plan: Continues to follow gastroenterology. Appears to have a repeat endoscopy and colonoscopy in April of 2024. Will continue him on lactulose daily to produce 3 bowel movements per day. Will recheck his ammonia levels. (3) Increased ammonia level: Code(s): R79.89 - Other specified abnormal findings of blood chemistry (4) Hyperkalemia: Code(s): E87.5 - Hyperkalemia Plan: Did have hyperkalemia thus his spironolactone was stopped. Will continue to follow electrolytes. (5) Decompensated hepatic cirrhosis: Code(s): K72.90 - Hepatic failure, unspecified without coma; K74.60 - Unspecified cirrhosis of liver Plan: Again followed by gastroenterology. (6) GISELA (generalized anxiety disorder): Code(s): F41.1 - Generalized anxiety disorder Plan: He does report feeling somewhat anxious due to his medical issues and trying to take care of his at home. He does use alprazolam 0.25 mg on a as needed basis for anxious symptoms. (7) Diabetic 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 associated with type 2 diabetes mellitus: Code(s): E11.42 - Type 2 diabetes mellitus with diabetic 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 Plan: As per HPI patients gabapentin was held due to the encephalopathy. Since hospitalization has been doing well and would like to restart gabapentin due to his neuropathic pain in his legs. He agrees to start lower dose 300 mg b.i.d. for (8) DMII (diabetes mellitus, type 2): Code(s): E11.9 - Type 2 diabetes mellitus without complications Qualifiers: Diabetes mellitus correction insulin use: with bed bug exterminator use Diabetes mellitus complication status: with neurologic complications Diabetes mellitus complication detail: with 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 Qualified Code(s): E11.42 - Type 2 diabetes mellitus with diabetic 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; Z79.4 - assisted (current) use of insulin Plan: Patient's type 2 diabetes well controlled at this time with current diabetic med regime. Goal A1c is to remain below 7.0 Orders: Orders Ammonia Today K72.90 - Hepatic failure, unspecified without coma, K74.60 - Unspecified cirrhosis of liver Comprehensive Met. Panel Today K72.90 - Hepatic failure, unspecified without coma, K74.60 - Unspecified cirrhosis of liver Complete Blood Count no Diff Today D64.9 - Anemia, unspecified AMB Hemoglobin A1c Today E11.42 - Type 2 diabetes mellitus with diabetic 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 Medications: New lactulose goal of 3 BM per day 20 grams (30 mL) PO BID 30 days 1,800 mL 3RF laxative effect K76.82 - Hepatic encephalopathy gabapentin 300 mg PO BID 30 days 60 caps 3RF E11.42 - Type 2 diabetes mellitus with diabetic 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 Changed From insulin degludec (Tresiba FlexTouch U-100 insulin) 6 units (0.06 mL) subcut BEDTIME 15 mL 0RF E11.42 - Type 2 diabetes mellitus with diabetic 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 To insulin degludec (Tresiba FlexTouch U-100 insulin) 6 units (0.06 mL) subcut BEDTIME 30 days 15 mL 1RF E11.42 - Type 2 diabetes mellitus with diabetic 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 Refilled insulin aspart U-100 (Novolog FlexPen U-100 Insulin aspart) see directions per sliding scale subcutaneously 3 times a day; Blood sugar 70-130- take 0 units Blood sugar 131-180- take 4 units Blood sugar 181-240- take 8 units Blood sugar 241-to 300- take 10 units Blood sugar 301-to 350- take 12 units Blood sugar 351-400- take 16 units Blood sugar over 400 please call PCP 20 units (0.2 mL) subcut TID 30 days 15 mL 3RF E11.21 - Type 2 diabetes mellitus with diabetic nephropathy Discontinued gabapentin Discontinued Reason: Doctor's Order 400 mg PO BID 90 days 180 caps 1RF S42.302A - Unspecified fracture of shaft of humerus, left arm, initial encounter for closed fracture Resumed alprazolam 0.5 mg PO BID 30 days PRN 60 tabs 2RF Anxiety F41.1 - Generalized anxiety disorder Patient Instructions: Goal: A1c to be below 7.0 Barriers: Comorbidities, adherence to healthy eating habits and physical activity Coding Level of Care Code Est Pt Level 4 (34984) Complex EM visit Add On G2211 Diagnoses Hospital discharge follow-up Z09 Hepatic encephalopathy K76.82 Increased ammonia level R79.89 Hyperkalemia E87.5 Decompensated hepatic cirrhosis K72.90; K74.60 GISELA (generalized anxiety disorder) F41.1 Diabetic 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 associated with type 2 diabetes mellitus E11.42 Type 2 diabetes mellitus with diabetic 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, with long-term current use of insulin E11.42; Z79.4 Diabetes mellitus bed bug exterminator insulin use: with bed bug exterminator use Diabetes mellitus complication status: with neurologic complications Diabetes mellitus complication detail: with 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 Additional Codes GISELA-7 Assessment Billing - GISELA-7 Assessment Tool: GISELA-7 Assessment 56094 ([id number])
[2024-02-10 13:12] VITALS: BP 108/56; PULSE 60; O2SAT 99; BMI 25.6
== END 2024-02-10 13:52 | disposition home or self-care (01) ==
LOC: HO.HMGH 13:09
PROVIDERS: PCP Physician Assistant; Visit Provider Physician Assistant
DX: K76.82 Hepatic encephalopathy (principal); K72.90 Hepatic failure, unspecified without coma; K74.60 Unspecified cirrhosis of liver; E11.42 Type 2 diabetes mellitus with diabetic 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; Z79.4 Long term (current) use of insulin; Z09 Encounter for follow-up examination after completed treatment for conditions other than malignant neoplasm; E87.5 Hyperkalemia; R79.89 Other specified abnormal findings of blood chemistry; F41.1 Generalized anxiety disorder
CPT/HCPCS: 83036; 99214; G2211

== ENCOUNTER 2024-02-10 14:07 | Outpatient (REF) | payer MEDICARE, SELFPAY ==
[2024-02-10 14:23] LABS: Hematocrit 29.4 % (42.0-52.0); Hemoglobin 9.4 g/dl (14.0-18.0); Mean Corpuscular Hemoglobin 28.7 pg (27.0-33.0); Mean Corpuscular Volume 89.6 fL (80.0-98.0); Mean Platelet Volume 11.3 fL (9.4-12.4); Platelet Count 110 X10*3/uL (160-400); Red Blood Count 3.28 X10*6/uL (4.60-5.80); Red Cell Distribution Width 16.3 % (11.0-16.0)
[2024-02-10 14:31] LABS: Ammonia 23 umol/L (13-55)
[2024-02-10 14:40] LABS: Alanine Aminotransferase 47 U/L (0-40); Albumin Level 3.7 g/dL (3.5-5.0); Alkaline Phosphatase 179 U/L (39-117); Anion Gap 10 (12-20); Aspartate Amino Transferase 37 U/L (5-37); Bilirubin Total 0.7 mg/dL (0.0-1.0); Blood Urea Nitrogen 40 mg/dL (9-16); Calcium 8.5 mg/dL (8.4-10.2); Carbon Dioxide 22 mmol/L (22-29); Chloride 115 mmol/L (96-108); Estimated Glomerular Filt Rate 47; Glucose Random 150 mg/dL (60-115); Potassium 3.9 mmol/L (3.3-5.1); Sodium 143 mmol/L (135-145); Total Protein 6.4 g/dL (6.5-8.0)
== END 2024-02-10 14:08 | disposition home or self-care (01) ==
LOC: HO.LAB 14:07
PROVIDERS: PCP Physician Assistant; Visit Provider Physician Assistant
DX: K72.90 Hepatic failure, unspecified without coma (principal); K74.60 Unspecified cirrhosis of liver; D64.9 Anemia, unspecified
CPT/HCPCS: 36415; 80053; 82140; 85027

== ENCOUNTER 2024-02-22 06:26 | Outpatient (REF) | payer MEDICARE, SELFPAY ==
[2024-02-22 11:02] LABS: MANUAL DIFF FLAG NO
[2024-02-22 11:29] LABS: Basophils Absolute Auto 0.1 X10*3/uL (0.0-0.2); Eosinophils Absolute Auto 0.3 X10*3/uL (0.0-0.4); Eosinophils Percent Auto 6.4 % (0-4); Hematocrit 23.5 % (42.0-52.0); Hemoglobin 7.5 g/dl (14.0-18.0); Imm Gran Abs Auto 0.02 X10*3/uL (0.00-0.03); Imm Gran Pct Auto 0.4 % (0.0-0.4); Lymphocytes Absolute Auto 0.5 X10*3/uL (1.2-4.9); Lymphocytes Percent Auto 10.8 % (20-40); Mean Corpuscular HGB Conc 31.9 g/dl (31.0-36.0); Mean Corpuscular Hemoglobin 28.6 pg (27.0-33.0); Mean Corpuscular Volume 89.7 fL (80.0-98.0); Mean Platelet Volume 11.4 fL (9.4-12.4); Monocytes Absolute Auto 0.5 X10*3/uL (0.1-1.2); Neutrophils Absolute Auto 3.6 x10*3/uL (2.0-8.3); Neutrophils Percent Auto 71.4 % (45-73); Red Blood Count 2.62 X10*6/uL (4.60-5.80); Red Cell Distribution Width 17.8 % (11.0-16.0)
[2024-02-22 11:34] LABS: Platelet Count 93 X10*3/uL (160-400)
== END 2024-02-22 06:27 | disposition home or self-care (01) ==
LOC: HO.LHD 06:26
PROVIDERS: Visit Provider Internal Medicine
DX: D64.9 Anemia, unspecified (principal)
CPT/HCPCS: 36415; 85025

== ENCOUNTER 2024-02-29 08:23 | Outpatient (REF) | payer MEDICARE, SELFPAY | END 2024-02-29 08:24 | disposition home or self-care (01) | LOC: HO.LHD 08:23 | PROVIDERS: Visit Provider Internal Medicine | DX: Z13.89 Encounter for screening for other disorder (principal) ==

== ENCOUNTER 2024-03-01 06:53 | Outpatient (REF) | payer MEDICARE, SELFPAY ==
[2024-03-01 11:24] LABS: MANUAL DIFF FLAG NO
[2024-03-01 11:37] LABS: Basophils Absolute Auto 0.1 X10*3/uL (0.0-0.2); Basophils Percent Auto 0.9 % (0-2); Eosinophils Absolute Auto 0.1 X10*3/uL (0.0-0.4); Eosinophils Percent Auto 1.8 % (0-4); Imm Gran Abs Auto 0.04 X10*3/uL (0.00-0.03); Imm Gran Pct Auto 0.6 % (0.0-0.4); Lymphocytes Absolute Auto 0.6 X10*3/uL (1.2-4.9); Lymphocytes Percent Auto 8.5 % (20-40); Mean Corpuscular HGB Conc 32.1 g/dl (31.0-36.0); Mean Corpuscular Hemoglobin 28.6 pg (27.0-33.0); Mean Corpuscular Volume 88.9 fL (80.0-98.0); Monocytes Absolute Auto 1.2 X10*3/uL (0.1-1.2); Neutrophils Absolute Auto 4.6 x10*3/uL (2.0-8.3); Neutrophils Percent Auto 70.2 % (45-73); Platelet Count 133 X10*3/uL (160-400); Red Blood Count 3.15 X10*6/uL (4.60-5.80); Red Cell Distribution Width 17.2 % (11.0-16.0); White Blood Count 6.6 X10*3/uL (4.8-10.8)
== END 2024-03-01 06:54 | disposition home or self-care (01) ==
LOC: HO.LHD 06:53
PROVIDERS: Visit Provider Internal Medicine
DX: D64.9 Anemia, unspecified (principal)
CPT/HCPCS: 36415; 85025

== ENCOUNTER 2024-03-07 08:43 | Outpatient (REF) | payer MEDICARE, SELFPAY ==
[2024-03-07 10:50] LABS: MANUAL DIFF FLAG NO
[2024-03-07 10:53] LABS: Basophils Absolute Auto 0.1 X10*3/uL (0.0-0.2); Basophils Percent Auto 1.4 % (0-2); Eosinophils Absolute Auto 0.3 X10*3/uL (0.0-0.4); Eosinophils Percent Auto 3.9 % (0-4); Hematocrit 28.4 % (42.0-52.0); Hemoglobin 9.1 g/dl (14.0-18.0); Imm Gran Pct Auto 1.2 % (0.0-0.4); Lymphocytes Absolute Auto 1.1 X10*3/uL (1.2-4.9); Lymphocytes Percent Auto 12.6 % (20-40); Mean Corpuscular Hemoglobin 28.3 pg (27.0-33.0); Mean Corpuscular Volume 88.5 fL (80.0-98.0); Mean Platelet Volume 10.4 fL (9.4-12.4); Neutrophils Absolute Auto 5.7 x10*3/uL (2.0-8.3); Neutrophils Percent Auto 68.9 % (45-73); Platelet Count 257 X10*3/uL (160-400); Red Blood Count 3.21 X10*6/uL (4.60-5.80); Red Cell Distribution Width 16.4 % (11.0-16.0); White Blood Count 8.3 X10*3/uL (4.8-10.8)
== END 2024-03-07 08:44 | disposition home or self-care (01) ==
LOC: HO.LHD 08:43
PROVIDERS: Visit Provider Internal Medicine
DX: D64.9 Anemia, unspecified (principal)
CPT/HCPCS: 36415; 85025

== ENCOUNTER 2024-03-14 08:33 | Outpatient (REF) | payer MEDICARE, SELFPAY ==
[2024-03-14 12:05] LABS: Basophils Absolute Auto 0.1 X10*3/uL (0.0-0.2); Eosinophils Absolute Auto 0.3 X10*3/uL (0.0-0.4); Eosinophils Percent Auto 2.1 % (0-4); Hematocrit 27.3 % (42.0-52.0); Hemoglobin 8.7 g/dl (14.0-18.0); Imm Gran Abs Auto 0.09 X10*3/uL (0.00-0.03); Imm Gran Pct Auto 0.7 % (0.0-0.4); Lymphocytes Absolute Auto 1.1 X10*3/uL (1.2-4.9); Lymphocytes Percent Auto 8.7 % (20-40); MANUAL DIFF FLAG SCAN; Mean Corpuscular HGB Conc 31.9 g/dl (31.0-36.0); Mean Corpuscular Hemoglobin 28.5 pg (27.0-33.0); Mean Corpuscular Volume 89.5 fL (80.0-98.0); Mean Platelet Volume 11.5 fL (9.4-12.4); Monocytes Absolute Auto 1.7 X10*3/uL (0.1-1.2); Monocytes Percent Auto 13.3 % (2-11); Neutrophils Absolute Auto 9.4 x10*3/uL (2.0-8.3); Neutrophils Percent Auto 74.2 % (45-73); Platelet Count 200 X10*3/uL (160-400); Red Blood Count 3.05 X10*6/uL (4.60-5.80); Red Cell Distribution Width 16.2 % (11.0-16.0); SCAN SMEAR FLAG 1; White Blood Count 12.7 X10*3/uL (4.8-10.8)
[2024-03-14 12:29] LABS: SLIDE REVIEW VERIFIED
== END 2024-03-14 08:34 | disposition home or self-care (01) ==
LOC: HO.LHD 08:33
PROVIDERS: Visit Provider Internal Medicine
DX: D64.9 Anemia, unspecified (principal)
CPT/HCPCS: 36415; 85025

== ENCOUNTER 2024-03-21 08:15 | Outpatient (REF) | payer MEDICARE, SELFPAY ==
[2024-03-21 12:24] LABS: MANUAL DIFF FLAG NO
[2024-03-21 12:27] LABS: Basophils Percent Auto 0.6 % (0-2); Eosinophils Absolute Auto 0.2 X10*3/uL (0.0-0.4); Eosinophils Percent Auto 2.8 % (0-4); Hematocrit 21.8 % (42.0-52.0); Imm Gran Abs Auto 0.08 X10*3/uL (0.00-0.03); Imm Gran Pct Auto 1.1 % (0.0-0.4); Lymphocytes Absolute Auto 0.6 X10*3/uL (1.2-4.9); Lymphocytes Percent Auto 8.3 % (20-40); Mean Corpuscular HGB Conc 30.3 g/dl (31.0-36.0); Mean Corpuscular Hemoglobin 27.4 pg (27.0-33.0); Mean Corpuscular Volume 90.5 fL (80.0-98.0); Mean Platelet Volume 11.2 fL (9.4-12.4); Monocytes Absolute Auto 0.8 X10*3/uL (0.1-1.2); Monocytes Percent Auto 11.5 % (2-11); Neutrophils Absolute Auto 5.5 x10*3/uL (2.0-8.3); Neutrophils Percent Auto 75.7 % (45-73); Platelet Count 124 X10*3/uL (160-400); Red Blood Count 2.41 X10*6/uL (4.60-5.80); Red Cell Distribution Width 16.5 % (11.0-16.0); White Blood Count 7.2 X10*3/uL (4.8-10.8)
[2024-03-21 12:34] LABS: Hemoglobin 6.6 g/dl (14.0-18.0)
== END 2024-03-21 08:16 | disposition home or self-care (01) ==
LOC: HO.LHD 08:15
PROVIDERS: Visit Provider Internal Medicine
DX: D64.9 Anemia, unspecified (principal)
CPT/HCPCS: 36415; 85025

== ENCOUNTER 2024-03-28 06:44 | Outpatient (REF) | payer MEDICARE, SELFPAY ==
[2024-03-28 11:22] LABS: MANUAL DIFF FLAG NO
[2024-03-28 11:54] LABS: Basophils Absolute Auto 0.1 X10*3/uL (0.0-0.2); Basophils Percent Auto 0.8 % (0-2); Eosinophils Absolute Auto 0.1 X10*3/uL (0.0-0.4); Eosinophils Percent Auto 1.8 % (0-4); Hematocrit 25.7 % (42.0-52.0); Imm Gran Abs Auto 0.03 X10*3/uL (0.00-0.03); Imm Gran Pct Auto 0.5 % (0.0-0.4); Lymphocytes Absolute Auto 0.5 X10*3/uL (1.2-4.9); Lymphocytes Percent Auto 8.8 % (20-40); Mean Corpuscular HGB Conc 31.1 g/dl (31.0-36.0); Mean Corpuscular Hemoglobin 28.5 pg (27.0-33.0); Mean Corpuscular Volume 91.5 fL (80.0-98.0); Monocytes Absolute Auto 0.8 X10*3/uL (0.1-1.2); Monocytes Percent Auto 12.9 % (2-11); Neutrophils Absolute Auto 4.6 x10*3/uL (2.0-8.3); Neutrophils Percent Auto 75.2 % (45-73); Red Blood Count 2.81 X10*6/uL (4.60-5.80); Red Cell Distribution Width 17.9 % (11.0-16.0); White Blood Count 6.1 X10*3/uL (4.8-10.8)
[2024-03-28 11:55] LABS: Platelet Count 92 X10*3/uL (160-400)
== END 2024-03-28 06:45 | disposition home or self-care (01) ==
LOC: HO.LHD 06:44
PROVIDERS: Visit Provider Internal Medicine
DX: D64.9 Anemia, unspecified (principal)
CPT/HCPCS: 36415; 85025

== ENCOUNTER → 2024-03-28 23:59 | Outpatient (BNV) | payer MEDICARE, SELFPAY | PROVIDERS: PCP Physician Assistant; Visit Provider Physician Assistant | DX: E11.40 Type 2 diabetes mellitus with diabetic neuropathy, unspecified (principal); K74.60 Unspecified cirrhosis of liver; D63.1 Anemia in chronic kidney disease | CPT/HCPCS: G0179 ==

== ENCOUNTER 2024-04-04 09:05 | Outpatient (REF) | payer MEDICARE, SELFPAY ==
[2024-04-04 11:40] LABS: MANUAL DIFF FLAG NO
[2024-04-04 11:46] LABS: Basophils Percent Auto 0.8 % (0-2); Eosinophils Absolute Auto 0.1 X10*3/uL (0.0-0.4); Eosinophils Percent Auto 2.6 % (0-4); Hematocrit 21.8 % (42.0-52.0); Imm Gran Abs Auto 0.01 X10*3/uL (0.00-0.03); Imm Gran Pct Auto 0.3 % (0.0-0.4); Lymphocytes Absolute Auto 0.4 X10*3/uL (1.2-4.9); Lymphocytes Percent Auto 10.1 % (20-40); Mean Corpuscular HGB Conc 29.8 g/dl (31.0-36.0); Mean Corpuscular Hemoglobin 27.4 pg (27.0-33.0); Mean Platelet Volume 11.9 fL (9.4-12.4); Monocytes Absolute Auto 0.5 X10*3/uL (0.1-1.2); Monocytes Percent Auto 12.5 % (2-11); Neutrophils Absolute Auto 2.8 x10*3/uL (2.0-8.3); Neutrophils Percent Auto 73.7 % (45-73); Platelet Count 103 X10*3/uL (160-400); Red Blood Count 2.37 X10*6/uL (4.60-5.80); Red Cell Distribution Width 17.1 % (11.0-16.0); White Blood Count 3.9 X10*3/uL (4.8-10.8)
[2024-04-04 11:55] LABS: Hemoglobin 6.5 g/dl (14.0-18.0)
== END 2024-04-04 09:06 | disposition home or self-care (01) ==
LOC: HO.LHD 09:05
PROVIDERS: Visit Provider Internal Medicine
DX: D64.9 Anemia, unspecified (principal)
CPT/HCPCS: 36415; 85025

== ENCOUNTER 2024-04-05 23:10 | Emergency (ER) | payer MEDICARE, SELFPAY ==
--- NOTE | ~2024-04-05 | CT_ITS ---
EXAMINATION: NONCONTRAST HEAD CT NONCONTRAST CERVICAL SPINE CT INDICATION INFORMATION: Fall COMPARISON: 01/25/2024 TECHNIQUE: Separate noncontrast CT examinations of the head and cervical spine were performed. Coronal head CT images and coronal and sagittal cervical spine images were created at the technologist workstation. DLP: 906 mGy-cm DOSE LOWERING TECHNIQUES: This CT examination was performed using dose optimization techniques as appropriate, variously including the following: - Automated exposure control - Adjustment of mA and/or kV according to patient size (this includes techniques or standardized protocols for targeted exams were dose is matched to indication/reason for exam; i.e. extremities or head) - Use of iterative reconstruction technique FINDINGS: Head: There is no evidence of acute intracranial hemorrhage or territorial infarction. No abnormal mass-effect or midline shift is seen. [place] to white matter differentiation is well preserved. No extra-axial fluid collections are identified. The ventricles are normal in size. There is moderate periventricular white matter hypoattenuation consistent with chronic small vessel ischemic disease. Moderate volume loss is noted. Mild high left frontal scalp soft tissue swelling. No acute fracture is seen. Redemonstrated calcification adjacent to the inner table of the left frontal bone. The mastoid air cells and visualized portions of the paranasal sinuses are well-aerated. Cervical spine: There is degenerative change at the atlantodens articulation. Redemonstrated loss of disc space at C5-C6 with partial loss of C5 height anteriorly and associated flexion, without significant change from prior. Otherwise anatomic alignment of the remaining vertebral bodies and posterior elements. Remaining intervertebral disc spaces are relatively well-preserved. There are endplate osteophytes of the lower cervical spine. Mild to moderate bilateral facet arthropathy. No evidence of acute fracture. No prevertebral soft tissue swelling. Visualized portions of the lung apices are unremarkable. The thyroid gland is unremarkable. CT/CT cervical spine wo IV con IMPRESSION: HEAD: No acute intracranial findings. Mild high left frontal scalp soft tissue swelling. CERVICAL SPINE: No acute findings identified. Chronic appearing and degenerative changes as noted above.
[2024-04-05 23:23] VITALS: BP 122/39; PULSE 69; RESP 18; TEMP 36.7; O2SAT 100; BMI 27.2
--- NOTE | 2024-04-05 23:55 | ED_ITS ---
HPI - Head Injury General Chief complaint: Head Injury Stated complaint: hit head on fireplace Time Seen by Provider: 04/05/24 23:53 Source: patient Mode of arrival: ambulatory Limitations: no limitations History of Present Illness ED Provider: isidoro HERRON Narrative: 78-year-old male with history of hepatic cirrhosis complicated by esophageal varices and ascites, insulin-dependent type 2 diabetes, diabetic 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, hypertension, hyperlipidemia, history of prostate cancer, ANUJA on CPAP, chronic iron deficiency anemia, CAD on DAPT, h/o endocarditis s/p bioprosthetic TAVR, s/p pacemaker presented to the ED hit stopped of the head on a fireplace when 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 a coin came with superficial flap laceration on the top of the head with minor bleeding patient had blood workup done as outpatient on 04/04 which showed hemoglobin of 6.5 patient has been anemic cause of anemia not clear Related Data Previous Rx's ?Medication ?Instructions ?Recorded blood pressure test kit-large #1 ea 11/21/21 flash glucose scanning reader #1 ea 10/03/22 (FreeStyle Marleni 14 Day [place]) flash glucose sensor (FreeStyle #2 ea 10/03/22 Marleni 14 Day Sensor kit) bethanechol chloride 25 mg tablet 25 mg PO BID 90 days #180 tabs 09/15/23 lancets 28 gauge (FreeStyle #100 ea 10/21/23 Lancets) aspirin 81 mg tablet,delayed 81 mg PO DAILY 30 days #30 tabs 03/09/24 release (Adult Aspirin Regimen) atorvastatin 80 mg tablet 40 mg (1/2 x 80 mg) PO BEDTIME #90 03/09/24 tabs blood sugar diagnostic (FreeStyle #100 ea 03/09/24 Test strips) blood-glucose meter (FreeStyle #1 ea 03/09/24 Lite Meter kit) carvedilol 6.25 mg tablet 6.25 mg PO BID 30 days #60 tabs 03/09/24 dapagliflozin propanediol 10 mg 10 mg PO DAILY 30 days #30 tabs 03/09/24 tablet (Farxiga) ezetimibe 10 mg tablet (Zetia) 10 mg PO DAILY #30 tabs 03/09/24 ferrous sulfate 325 mg (65 mg 325 mg PO DAILY #90 tabs 03/09/24 iron) tablet,delayed release finasteride 5 mg tablet (Proscar) 5 mg PO DAILY 90 days #90 tabs 03/09/24 folic acid 800 mcg tablet 0.8 mg PO DAILY 30 days #30 tabs 03/09/24 insulin degludec 100 unit/mL (3 6 unit (0.06 mL) subcut BEDTIME 30 03/09/24 mL) subcutaneous pen (Tresiba days #15 mL FlexTouch U-100 insulin) insulin regular hum U-500 conc 500 20 unit (0.04 mL) subcut TID 30 03/09/24 unit/mL(3 mL) subcut pen (Humulin days #6 mL R U-500 (Conc) Insulin Kwikpen) lactulose 20 gram/30 mL oral 20 g (30 mL) PO BID laxative 03/09/24 solution effect 30 days #1,800 mL pantoprazole 40 mg tablet,delayed 40 mg PO DAILY #30 tabs 03/09/24 release pen needle, diabetic 32 gauge x #150 ea 03/09/24 (BD Gifty 2nd Gen Pen Needle) pen needle, diabetic 32 gauge x #50 ea 03/09/24 (BD Ultra-Fine Gifty Pen Needle) tamsulosin 0.4 mg capsule 0.4 mg PO DAILY 90 days #90 caps 03/09/24 alprazolam 0.5 mg tablet 0.5 mg PO BID PRN Anxiety 30 days 03/10/24 #60 tabs gabapentin 300 mg capsule 300 mg PO BID 30 days #60 caps 03/10/24 blood sugar diagnostic (Prodigy No #100 ea 03/19/24 Coding strips) blood-glucose meter (Prodigy #1 ea 03/22/24 Pocket Meter kit) dulaglutide 0.75 mg/0.5 mL 0.75 mg (0.5 mL) subcut MO #2 mL 03/28/24 subcutaneous pen injector ([facility]) bisacodyl 5 mg tablet,delayed 20 mg (4 x 5 mg) PO ONCE 1 day #4 03/29/24 release (Dulcolax (bisacodyl)) tabs polyethylene glycol 3350 17 238 g PO ONCE 1 day #238 grams 03/29/24 gram/dose oral powder (Miralax) spironolactone 25 mg tablet 25 mg PO DAILY 30 days #30 tabs 03/29/24 torsemide 20 mg tablet 40 mg (2 x 20 mg) PO DAILY 30 days 03/29/24 #60 tabs cyanocobalamin (vitamin B-12) 500 1,000 mcg (2 x 500 mcg) PO BEDTIME 04/01/24 mcg tablet #90 tabs Allergies Allergy/AdvReac Type Severity Reaction Status Date / Time KARL Inhibitors Allergy Severe Angioedema Verified 04/05/24 23:28 dextran 40 [DEXTRAN 40] Allergy Intermediate tachycardia Verified 02/10/24 13:24 latex [LATEX] Allergy Mild BLISTERS Verified 02/10/24 13:24 lisinopril [From Zestril] Allergy Mild Unknown Verified 02/10/24 13:24 Iodinated Contrast Media Allergy Unknown UNKNOWN Verified 02/10/24 13:24 [CONTRAST,IV] Review of Systems 2 Review of Systems: Yes all other systems are reviewed and are negative [facility] Past Medical History Medical History DMII (diabetes mellitus, type 2) Hyperglycemia Symptomatic anemia Difficulty walking Anemia 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 Streptococcal bacteremia Fracture of left humerus History of prostate cancer Acute lower gastrointestinal bleeding COVID-19 vaccine series completed Hypertension Dyslipidemia Diabetic nephropathy associated with type 2 diabetes mellitus Diabetic 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 associated with type 2 diabetes mellitus 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 Diabetes type 2, uncontrolled Varices of esophagus determined by endoscopy Esophageal varices without bleeding KOEHLER (dyspnea on exertion) Chronic fatigue Iron deficiency anemia CAD (coronary artery disease) ANUJA on CPAP Prostate cancer Spinal stenosis On beta kayy at home IBS (irritable colon syndrome) Aortic stenosis HTN (hypertension) Polyneuropathy GERD (gastroesophageal reflux disease) Surgical History S/P infectious endocarditis H/O cataract extraction Hx of endoscopy History of colonoscopy Hx of esophagogastroduodenoscopy Hx of colonoscopy History of surgery History of transurethral resection of prostate History of surgery History of heart artery stent Family History Family History Father CVD (cardiovascular disease) Past heart attack Mother CVD (cardiovascular disease) Brain cancer Heart problem Daughter Breast cancer Sister Breast cancer Son Alive and well Family/Other Myocardial infarction Liver cancer Social History Social History Household Members: Spouse Household Members Other:: Myesha Housing: House Are you a primary acute care nurse practitioner to a significant other at home: No Do you presently have visiting nurse or other home services: Yes (RN 2 x a week) Alcohol intake: never Patient Tobacco Use Status: Never used Tobacco Smoked in Last 30 Days: No e-Cigarette/Vaping Use: Never Used Second Hand Smoke Exposure: No Use of substances other than those prescribed or required for medical reasons: No Advance Directives: Yes Advance Directives on File: Yes Advance Directives Date on File: 08/31/23 Do you have a plan to hurt others: No Plan service: No Current occupational status: retired Cognitive needs: No Hearing needs: No Vision needs: Yes Physical Exam 2 Vital Signs: Vital Signs: Last Vital Signs Temp 98.2 F 04/06/24 02:46 Pulse 68 04/06/24 02:46 Resp 18 04/06/24 02:46 BP 120/43 L 04/06/24 02:46 Pulse Ox 99 04/06/24 02:46 O2 Del Method Room Air 04/06/24 02:46 BMI result Body Mass Index 27.2 Appearance: Alert. Oriented X3. No acute distress. Eyes: PERRLA, No Nystagmus pallor+ ENT: Pharynx normal. Oral Mucosa moist Neck: Normal inspection. Neck supple. CVS: Normal heart rate and rhythm. Pulses normal. Respiratory: No respiratory distress. Equal air entry bilateral, no wheezing/rales/rhonchi Abdomen: Soft and nontender. Bowel sounds are present, no mass palpable, no CVA tenderness Skin: Skin warm and dry. Normal skin color. Normal skin turgor. Extremities: No lower extremity edema. No calf tenderness Neuro: Oriented X 3. No motor deficit. No sensory deficit.No cerebellar signs , cranial nerves II-XII intact Medications Administered Discontinued Medications Generic Name Dose Route Start Last Admin Trade Name Freq PRN Reason Stop Dose Admin Lactulose 20 gm 04/06/24 02:09 04/06/24 02:40 Lactulose 20 Gm/30 Ml Solution PO 04/06/24 02:10 20 gm ONCE ONE Administration Medical Decision Making Medical Decision Making MDM Narrative: Patient's anemia 2 days ago hemoglobin was 6.5 today was 8 no active bleeding at this time patient also alert oriented x3 gait is stable ammonia level noted to be 111 patient is taking lactulose twice daily having 2-3 bowel movements does not want to stay in the hospital willing start taking lactulose 3 times a day at home family's bedside patient is ambulating in the ER in steady gait will discharge patient home advised to increase the dose of lactulose Differential Diagnosis Differential Diagnoses: The differential diagnosis associated with the presentation includes Admission/Observation Consideration of admission/observation: Escalation of care including admission/observation considered Lab Data [facility] Lab Attestation statement: I reviewed the patient's lab results. 04/06/24 00:29 04/06/24 00:29 Labs: Lab Results 04/06/24 04/06/24 Range/Units 00:29 00:58 WBC 4.4 L (4.8-10.8) X10*3/uL RBC 2.81 L (4.60-5.80) X10*6/uL Hgb 8.0 L D (14.0-18.0) g/dl Hct 25.1 L (42.0-52.0) % MCV 89.3 (80.0-98.0) fL MCH 28.5 (27.0-33.0) pg MCHC 31.9 (31.0-36.0) g/dl RDW 17.2 H (11.0-16.0) % Plt Count 105 L (160-400) X10*3/uL MPV 11.1 (9.4-12.4) fL Immature Gran % (Auto) 0.2 (0.0-0.4) % Neut % (Auto) 71.9 (45-73) % Lymph % (Auto) 11.8 L (20-40) % [place] % (Auto) 12.5 H (2-11) % Eos % (Auto) 2.7 (0-4) % Baso % (Auto) 0.9 (0-2) % Lymph # (Auto) 0.5 L (1.2-4.9) X10*3/uL [place] # (Auto) 0.6 (0.1-1.2) X10*3/uL Eos # (Auto) 0.1 (0.0-0.4) X10*3/uL Baso # (Auto) 0.0 (0.0-0.2) X10*3/uL Abs Immat Gran (auto) 0.01 (0.00-0.03) X10*3/uL Absolute Neuts (auto) 3.2 (2.0-8.3) x10*3/uL Absolute Nucleated RBC 0.000 (0.0-0.012) X10*3/uL Nucleated RBC % (auto) 0.0 (0.0-0.2) /100WBC PT 14.0 H (11.1-13.3) SEC INR 1.2 H (0.9-1.1) Sodium 141 (135-145) mmol/L Potassium 4.3 (3.3-5.1) mmol/L Chloride 109 H (96-108) mmol/L Carbon Dioxide 23 (22-29) mmol/L Anion Gap 13 (12-20) BUN 47 H (9-16) mg/dL Creatinine 1.95 H (0.5-1.4) mg/dL Estim Creat Clear Calc 30.2 Estimated GFR 33 Random Glucose 209 H (60-115) mg/dL Calcium 8.2 L (8.4-10.2) mg/dL Total Bilirubin 0.9 (0.0-1.0) mg/dL AST 27 (5-37) U/L ALT 29 (0-40) U/L Alkaline Phosphatase 129 H (39-117) U/L Ammonia 111 H (13-55) umol/L Total Protein 5.4 L (6.5-8.0) g/dL Albumin 2.9 L (3.5-5.0) g/dL Blood Type A Positive Antibody Screen NEGATIVE Independent Interpretation I performed an independent interpretation of an: CT Scan Interpretation: Negative for bleed no cervical fracture Radiology Impression Discussion of test interpretation with radiology: I have reviewed the radiologist's reading. Procedures Laceration Laceration 1: Site: scalp Side (If applicable): left Size (cm): 3 Description: linear Depth: simple, single layer Skin layer closed with: other ([place] #4) Discharge Plan Discharge Clinical Impression: Head injury, Hyperammonemia Patient Disposition: Home, Self-Care Instructions: Cirrhosis (ED), Head Injury (ED) Additional Instructions: Take lactulose 3 times a day for next 1 week to have 3-4 loose bowels a day [place] removal in 1 week Report to the ER if increased confusion/sleepiness Prescriptions: No Action (DME) FreeStyle Marleni 14 Day [place] Misc See Rx Instructions .Route Qty: 1 0RF Rx Instructions: As directed (DME) FreeStyle Marleni 14 Day Sensor Kit See Rx Instructions .Route Qty: 2 2RF Rx Instructions: As directed bethanechol chloride 25 mg tablet 25 mg PO BID 90 Days Qty: 180 1RF aspirin [Adult Aspirin Regimen] 81 mg tablet,delayed release (DR/EC) 81 mg PO DAILY 30 Days Qty: 30 3RF Hold Instructions: Resume on 11/13/23. atorvastatin 80 mg tablet 40 mg PO BEDTIME Qty: 90 0RF (DME) FreeStyle Test Strip See Rx Instructions .Route Qty: 100 3RF Rx Instructions: three times per day (DME) blood-glucose meter [FreeStyle Lite Meter] Kit See Rx Instructions .Route Qty: 1 0RF Rx Instructions: As directed carvedilol 6.25 mg tablet 6.25 mg PO BID 30 Days Qty: 60 3RF Rx Instructions: must administer with a meal/food Farxiga 10 mg tablet 10 mg PO DAILY 30 Days Qty: 30 3RF ezetimibe [Zetia] 10 mg tablet 10 mg PO DAILY Qty: 30 3RF ferrous sulfate 325 mg (65 mg iron) tablet,delayed release (DR/EC) 325 mg PO DAILY Qty: 90 0RF finasteride [Proscar] 5 mg tablet 5 mg PO DAILY 90 Days Qty: 90 1RF folic acid 800 mcg tablet 0.8 mg PO DAILY 30 Days Qty: 30 3RF insulin degludec [Tresiba FlexTouch U-100] 100 unit/mL (3 mL) insulin pen 6 unit subcut BEDTIME 30 Days Qty: 15 1RF Humulin R U-500 (Conc) Kwikpen 500 unit/mL (3 mL) insulin pen 20 unit subcut TID 30 Days Qty: 6 0RF Rx Instructions: see directions per sliding scale subcutaneously 3 times a day; Blood sugar 70-130- take 0 units Blood sugar 131-180- take 4 units Blood sugar 181-240- take 8 units Blood sugar 241-to 300- take 10 units Blood sugar 301-to 350- take 12 units Blood sugar 351-400- take 16 units Blood sugar over 400 please call PCP lactulose 20 gram/30 mL solution 20 g PO BID 30 Days Qty: 1800 3RF Rx Instructions: goal of 3 BM per day pantoprazole 40 mg tablet,delayed release (DR/EC) 40 mg PO DAILY Qty: 30 3RF (DME) pen needle, diabetic [BD Gifty 2nd Gen Pen Needle] 32 gauge x 5/32 needle See Rx Instructions .MEDSUPPLY Qty: 150 5RF Rx Instructions: 4 times a day tamsulosin 0.4 mg capsule 0.4 mg PO DAILY 90 Days Qty: 90 1RF (DME) pen needle, diabetic [BD Ultra-Fine Gifty Pen Needle] 32 gauge x 5/32 needle See Rx Instructions .ROUTE .MEDSUPPLY Qty: 50 3RF Rx Instructions: As directed alprazolam 0.5 mg tablet 0.5 mg PO BID PRN (Reason: Anxiety) 30 Days Qty: 60 1RF Hold Instructions: Resume on 02/09/24. gabapentin 300 mg capsule 300 mg PO BID 30 Days Qty: 60 3RF (DME) Prodigy No Coding Strip See Rx Instructions .Route Qty: 100 6RF Rx Instructions: Test 3 times a day (DME) blood-glucose meter [Prodigy Pocket Meter] Kit See Rx Instructions .Route Qty: 1 0RF Rx Instructions: Testing three times per day Trulicity 0.75 mg/0.5 mL pen injector 0.75 mg SUBCUT MO Qty: 2 0RF bisacodyl [Dulcolax (bisacodyl)] 5 mg tablet,delayed release (DR/EC) 20 mg PO ONCE 1 Days Qty: 4 0RF Rx Instructions: take at noon the day before colonoscopy polyethylene glycol 3350 [Miralax] 17 gram/dose powder 238 g PO ONCE 1 Days Qty: 238 0RF Rx Instructions: Take as directed by mouth the day before your procedure. spironolactone 25 mg tablet 25 mg PO DAILY 30 Days Qty: 30 3RF torsemide 20 mg tablet 40 mg PO DAILY 30 Days Qty: 60 3RF cyanocobalamin (vitamin B-12) 500 mcg tablet 1,000 mcg PO BEDTIME Qty: 90 0RF (DME) lancets [FreeStyle Lancets] 28 gauge misc See Rx Instructions .Route Qty: 100 6RF Rx Instructions: As directed three times per day (DME) blood pressure test kit-large Kit See Rx Instructions .Route Qty: 1 0RF Rx Instructions: As directed Interventions: ED Discharge Assessment Last Done: 04/06/24 02:46 Discharge Date/Time: 04/06/24 02:46 Print Language: Icelandic
[2024-04-06 00:39] LABS: MANUAL DIFF FLAG NO
[2024-04-06 00:42] LABS: Basophils Percent Auto 0.9 % (0-2); Eosinophils Absolute Auto 0.1 X10*3/uL (0.0-0.4); Eosinophils Percent Auto 2.7 % (0-4); Hematocrit 25.1 % (42.0-52.0); Imm Gran Abs Auto 0.01 X10*3/uL (0.00-0.03); Imm Gran Pct Auto 0.2 % (0.0-0.4); Lymphocytes Absolute Auto 0.5 X10*3/uL (1.2-4.9); Lymphocytes Percent Auto 11.8 % (20-40); Mean Corpuscular HGB Conc 31.9 g/dl (31.0-36.0); Mean Corpuscular Hemoglobin 28.5 pg (27.0-33.0); Mean Corpuscular Volume 89.3 fL (80.0-98.0); Mean Platelet Volume 11.1 fL (9.4-12.4); Monocytes Absolute Auto 0.6 X10*3/uL (0.1-1.2); Monocytes Percent Auto 12.5 % (2-11); Neutrophils Absolute Auto 3.2 x10*3/uL (2.0-8.3); Neutrophils Percent Auto 71.9 % (45-73); Platelet Count 105 X10*3/uL (160-400); Red Blood Count 2.81 X10*6/uL (4.60-5.80); Red Cell Distribution Width 17.2 % (11.0-16.0); White Blood Count 4.4 X10*3/uL (4.8-10.8)
[2024-04-06 00:49] LABS: INTERNATIONAL NORM RATIO 1.2 (0.9-1.1)
[2024-04-06 00:52] LABS: Ammonia 111 umol/L (13-55)
[2024-04-06 01:00] LABS: Alanine Aminotransferase 29 U/L (0-40); Albumin Level 2.9 g/dL (3.5-5.0); Alkaline Phosphatase 129 U/L (39-117); Anion Gap 13 (12-20); Aspartate Amino Transferase 27 U/L (5-37); Bilirubin Total 0.9 mg/dL (0.0-1.0); Blood Urea Nitrogen 47 mg/dL (9-16); Calcium 8.2 mg/dL (8.4-10.2); Carbon Dioxide 23 mmol/L (22-29); Chloride 109 mmol/L (96-108); Creatinine Clr Calc Pharmacy 30.2; Estimated Glomerular Filt Rate 33; Glucose Random 209 mg/dL (60-115); Potassium 4.3 mmol/L (3.3-5.1); Sodium 141 mmol/L (135-145); Total Protein 5.4 g/dL (6.5-8.0)
[2024-04-06 02:19] VITALS: BP 120/43; PULSE 68; RESP 18; TEMP 36.8; O2SAT 99
--- NOTE | 2024-04-06 02:34 | PC.NURSE ---
pt amb slowly and steadily shelter around the nurse's desk, with his cane. Pt states at home, he has a walker, pt was steady on his feet
[2024-04-06] MEDS: Lactulose 20 GM/30 ML SOLUTION PO (02:40)
[2024-04-06 02:46] VITALS: BP 120/43; PULSE 68; RESP 18; TEMP 36.8; O2SAT 99
== END 2024-04-06 02:46 | disposition home or self-care (01) ==
PROVIDERS: Emergency Provider Internal Medicine
DX: S01.01XA Laceration without foreign body of scalp, initial encounter (principal); W01.198A Fall on same level from slipping, tripping and stumbling with subsequent striking against other object, initial encounter; E72.20 Disorder of urea cycle metabolism, unspecified; E11.9 Type 2 diabetes mellitus without complications; I10 Essential (primary) hypertension; E78.5 Hyperlipidemia, unspecified; D50.9 Iron deficiency anemia, unspecified; Z85.46 Personal history of malignant neoplasm of prostate; Z95.2 Presence of prosthetic heart valve; Z95.0 Presence of cardiac pacemaker; Y93.89 Activity, other specified; Y92.019 Unspecified place in single-family (private) house as the place of occurrence of the external cause; Y99.9 Unspecified external cause status; Z79.02 Long term (current) use of antithrombotics/antiplatelets; Z79.899 Other long term (current) drug therapy; Z79.4 Long term (current) use of insulin; Z79.85 Long-term (current) use of injectable non-insulin antidiabetic drugs
CPT/HCPCS: 12002; 36415; 70450; 72125; 80053; 82140; 85025; 85610; 86850; 86900; 86901; 99284

== ENCOUNTER 2024-04-11 08:26 | Outpatient (REF) | payer MEDICARE, SELFPAY ==
[2024-04-11 11:13] LABS: MANUAL DIFF FLAG NO
[2024-04-11 11:23] LABS: Basophils Absolute Auto 0.1 X10*3/uL (0.0-0.2); Basophils Percent Auto 1.3 % (0-2); Eosinophils Absolute Auto 0.1 X10*3/uL (0.0-0.4); Eosinophils Percent Auto 3.3 % (0-4); Imm Gran Abs Auto 0.02 X10*3/uL (0.00-0.03); Imm Gran Pct Auto 0.5 % (0.0-0.4); Lymphocytes Absolute Auto 0.4 X10*3/uL (1.2-4.9); Lymphocytes Percent Auto 10.6 % (20-40); Mean Corpuscular HGB Conc 30.9 g/dl (31.0-36.0); Mean Corpuscular Hemoglobin 28.1 pg (27.0-33.0); Mean Corpuscular Volume 90.9 fL (80.0-98.0); Mean Platelet Volume 11.9 fL (9.4-12.4); Monocytes Absolute Auto 0.5 X10*3/uL (0.1-1.2); Monocytes Percent Auto 13.4 % (2-11); Neutrophils Absolute Auto 2.8 x10*3/uL (2.0-8.3); Neutrophils Percent Auto 70.9 % (45-73); Platelet Count 107 X10*3/uL (160-400); Red Blood Count 2.42 X10*6/uL (4.60-5.80); Red Cell Distribution Width 16.2 % (11.0-16.0)
[2024-04-11 11:28] LABS: Hemoglobin 6.8 g/dl (14.0-18.0)
== END 2024-04-11 08:27 | disposition home or self-care (01) ==
LOC: HO.LHD 08:26
PROVIDERS: Visit Provider Internal Medicine
DX: Z13.89 Encounter for screening for other disorder (principal)
CPT/HCPCS: 36415; 85025

== ENCOUNTER 2024-04-14 10:20 | Inpatient (IN) | payer MEDICARE, SELFPAY ==
[2024-04-14] VITALS (9 sets, daily range): BP systolic 100–113; BP diastolic 31–60; PULSE 60–70; RESP 16–20; TEMP 36.4–36.8; O2SAT 95–99; BMI 27.5
--- NOTE | ~2024-04-14 | XR_ITS ---
EXAMINATION: XR CHEST CLINICAL INFORMATION: Fall COMPARISON: Chest radiograph 01/25/2024 Left shoulder 08/25/2023 TECHNIQUE: Frontal view of the chest was obtained. FINDINGS: Again seen is cardiomegaly with prominent left ventricle. A left chest wall dual-lead pacemaker remains in place in good position. Again noted are changes of TAVR. No infiltrates, pleural effusions or suspicious lung masses are seen. There is an impacted healing fracture of the left humeral neck. XR/XR chest 1V IMPRESSION: 1. No acute intrathoracic disease. 2. Cardiomegaly. 3. Healing left humeral neck fracture.
--- NOTE | ~2024-04-14 | XR_ITS ---
EXAMINATION: XR THORACIC SPINE XR LUMBAR SPINE CLINICAL INFORMATION: History of fall, back pain COMPARISON: No recent thoracic or lumbar comparison imaging exam. However, chest CT from 12/29/[address] from 06/17/2022 are available for review. TECHNIQUE: Thoracic spine radiographs, 3 views Lumbar spine radiographs, 3 views FINDINGS: Chronic osseous fusion between the C5 and C6 vertebra and chronic kyphotic deformity of the cervical spine. The thoracic vertebra have well preserved height and alignment. No evidence of thoracic spine fracture. 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 Dual-chamber cardiac pacemaker in place and prior transcatheter aortic valve replacement and coronary artery stent placement. An interspinous fusion device is noted at L4-L5. The lumbar vertebra are normal in height. No acute fractures. At L4-L5, findings include chronic severe facet arthropathy, mild-to moderate degenerative narrowing of disc space, traction osteophyte formation, and grade 1 anterolisthesis of L4 on L5. At L5-S1, there is moderate loss of the disc height, vacuum disc phenomenon and chronic minimal retrolisthesis of L5 on S1. There is extensive atherosclerotic calcification of the abdominal aorta without radiographic evidence of aneurysm. A few calcifications in the right upper quadrant of the abdomen represent cholelithiasis. XR/XR lumbar spine 2-3V IMPRESSION: * No evidence of spinal fracture or traumatic subluxation. No acute abnormalities in the thoracic spine or lumbosacral spine. * Within the lumbar spine, the disc degenerative change is chronically worst at L5-S1. * At L4-5, there is severe facet osteoarthritis, disc degenerative change and chronic grade 1 anterolisthesis of L4 on L5. * Cholelithiasis. * Atherosclerotic disease.
--- NOTE | ~2024-04-14 | XR_ITS ---
EXAMINATION: XR THORACIC SPINE XR LUMBAR SPINE CLINICAL INFORMATION: History of fall, back pain COMPARISON: No recent thoracic or lumbar comparison imaging exam. However, chest CT from 12/29/[address] from 06/17/2022 are available for review. TECHNIQUE: Thoracic spine radiographs, 3 views Lumbar spine radiographs, 3 views FINDINGS: Chronic osseous fusion between the C5 and C6 vertebra and chronic kyphotic deformity of the cervical spine. The thoracic vertebra have well preserved height and alignment. No evidence of thoracic spine fracture. 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 Dual-chamber cardiac pacemaker in place and prior transcatheter aortic valve replacement and coronary artery stent placement. An interspinous fusion device is noted at L4-L5. The lumbar vertebra are normal in height. No acute fractures. At L4-L5, findings include chronic severe facet arthropathy, mild-to moderate degenerative narrowing of disc space, traction osteophyte formation, and grade 1 anterolisthesis of L4 on L5. At L5-S1, there is moderate loss of the disc height, vacuum disc phenomenon and chronic minimal retrolisthesis of L5 on S1. There is extensive atherosclerotic calcification of the abdominal aorta without radiographic evidence of aneurysm. A few calcifications in the right upper quadrant of the abdomen represent cholelithiasis. XR/XR thoracic spine 2V IMPRESSION: * No evidence of spinal fracture or traumatic subluxation. No acute abnormalities in the thoracic spine or lumbosacral spine. * Within the lumbar spine, the disc degenerative change is chronically worst at L5-S1. * At L4-5, there is severe facet osteoarthritis, disc degenerative change and chronic grade 1 anterolisthesis of L4 on L5. * Cholelithiasis. * Atherosclerotic disease.
--- NOTE | ~2024-04-14 | CT_ITS ---
EXAMINATION: CT HEAD WITHOUT CONTRAST CT CERVICAL SPINE WITHOUT CONTRAST CLINICAL INFORMATION: Fall. Head injury. COMPARISON: Recent head and C-spine CT from 04/06/2024. TECHNIQUE: Contiguous axial imaging was performed from the skullbase to vertex without intravenous administration of contrast. Multidetector helical imaging was performed through the cervical spine. This CT examination was performed using dose optimization techniques as appropriate, variously including the following: *Automated exposure control *Adjustment of mA and/or kV according to patient size (this includes techniques or standardized protocols for targeted exams where dose is matched to indication/reason for exam; i.e. extremities or head) *Use of iterative reconstruction technique DLP: 945 mGy-cm. FINDINGS: HEAD: There is no evidence of acute intracranial hemorrhage or territorial infarction. No abnormal mass effect or midline shift is seen. No extra-axial fluid collections are identified. A presumed small bone island in the anterior right frontal calvarium is stable. Extensive chronic white matter microangiopathic changes again visible with diffuse brain parenchymal volume loss, more significantly affecting the frontal lobes. There is stable ex vacuo dilatation of the ventricles, more so of the frontal horns without change. A calcified 1 cm meningioma is unchanged along the inner cortical table of the left paramedian frontal bone. High left frontal scalp jignesh visible at the site of presumed laceration injury. The mastoid air cells and visualized portions of the paranasal sinuses are well aerated. CERVICAL SPINE: No acute fracture or subluxation is identified in the cervical spine. There is a reversal of the cervical lordosis again visible with osseous fusion of the vertebral bodies and chronic endplate deformities at the C5-C6 level, as on prior imaging. Ossification/calcification of the longus coli muscles at the C2 level again visible without a retropharyngeal effusion. Multilevel facet arthropathy is unchanged. Uncovertebral joint spurring results in significant right foraminal encroachment at the C7-T1 level. At the C6-C7 level, there is a broad-based central disc protrusion with mild caudal migration contributing to moderate to severe central canal stenosis and thecal sac distortion. Central disc protrusion also again visible at the C4-C5 level with ventral cord deformity. Multilevel foraminal narrowing evident as a result of osseous spurring. The atlantoaxial articulation is normally maintained. The paraspinal soft tissues are normal. Moderate wall calcifications at the carotid bifurcations and origins of the internal carotid arteries is stable. The lung apices are clear. CT/CT cervical spine wo IV con IMPRESSION: 1. No acute intracranial hemorrhage or territorial infarction. Diffuse brain parenchymal volume loss and severe chronic white matter microangiopathy. High left frontal scalp laceration with jignesh in place. 2. No evidence of acute cervical spine traumatic injury. Multilevel spondylosis with moderate to severe central canal stenosis and a broad-based central disc protrusion at the C6-C7 level. Chronic deformity of the C5 and C6 vertebral bodies with endplate fusion and focal kyphosis. 3. Chronic ossification/calcification of the longus colli muscles at the C2 level.
[2024-04-14 10:40] LABS: Glucose, Whole Blood 140 mg/dL (60-115)
--- NOTE | 2024-04-14 10:45 | PC.NURSE ---
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
--- NOTE | 2024-04-14 11:14 | ECG_ITS ---
Test Reason : FALL Blood Pressure : / mmHG Vent. Rate : 064 BPM Atrial Rate : 064 BPM P-R Int : 258 ms QRS Dur : 114 ms QT Int : 466 ms P-R-T Axes : 058 -46 123 degrees QTc Int : 480 ms Atrial-sensed ventricular-paced rhythm with prolonged AV conduction with occasional atrial pacing Abnormal ECG When compared with ECG of 25-JAN-2024 11:14, Vent. rate has increased BY 4 BPM Referred By: Jesse Palm Electronically Signed By:Sy Vickers
--- NOTE | 2024-04-14 11:16 | ED_ITS ---
HPI - Fall General Chief Complaint: Fall Stated Complaint: FALL, W/LAC HEAD & ELBOW, +THINNERS Time Seen by Provider: 04/14/24 11:06 Source: patient, family (Spouse) and EMS Mode of arrival: EMS Limitations: no limitations History of Present Illness ED Provider: DR. Palm HPI Narrative: 79-year-old male brought in by ambulance for evaluation after a fall. Patient walk with a walker trying to reach out for a chair lost balance and he fell hitting his head, patient declined any LOC, no chest pain, no feeling dizziness or syncopal episode, patient with known history of hepatic cirrhosis and chronic anemia require blood transfusion in the past. Patient is complaining of low back pain today. Only take BP aspirin with no blood thinner. Patient usually have slurred speech secondary to his denture. Patient is known to have chronic anemia received 2 units of blood transfusions 2 days ago patient declined any black stool or blood in the stool. Related Data Home Medications ?Medication ?Instructions ?Recorded ?Confirmed bumetanide 1 mg tablet 1 mg PO DAILY 04/14/24 Previous Rx's ?Medication ?Instructions ?Recorded blood pressure test kit-large #1 ea 11/21/21 flash glucose scanning reader #1 ea 10/03/22 (FreeStyle Marleni 14 Day [place]) flash glucose sensor (FreeStyle #2 ea 10/03/22 Marleni 14 Day Sensor kit) bethanechol chloride 25 mg tablet 25 mg PO BID 90 days #180 tabs 09/15/23 lancets 28 gauge (FreeStyle #100 ea 10/21/23 Lancets) aspirin 81 mg tablet,delayed 81 mg PO DAILY 30 days #30 tabs 03/09/24 release (Adult Aspirin Regimen) atorvastatin 80 mg tablet 40 mg (1/2 x 80 mg) PO BEDTIME #90 03/09/24 tabs blood sugar diagnostic (FreeStyle #100 ea 03/09/24 Test strips) blood-glucose meter (FreeStyle #1 ea 03/09/24 Lite Meter kit) carvedilol 6.25 mg tablet 6.25 mg PO BID 30 days #60 tabs 03/09/24 dapagliflozin propanediol 10 mg 10 mg PO DAILY 30 days #30 tabs 03/09/24 tablet (Farxiga) ezetimibe 10 mg tablet (Zetia) 10 mg PO DAILY #30 tabs 03/09/24 ferrous sulfate 325 mg (65 mg 325 mg PO DAILY #90 tabs 03/09/24 iron) tablet,delayed release finasteride 5 mg tablet (Proscar) 5 mg PO DAILY 90 days #90 tabs 03/09/24 folic acid 800 mcg tablet 0.8 mg PO DAILY 30 days #30 tabs 03/09/24 insulin degludec 100 unit/mL (3 6 unit (0.06 mL) subcut BEDTIME 30 03/09/24 mL) subcutaneous pen (Tresiba days #15 mL FlexTouch U-100 insulin) insulin regular hum U-500 conc 500 20 unit (0.04 mL) subcut TID 30 03/09/24 unit/mL(3 mL) subcut pen (Humulin days #6 mL R U-500 (Conc) Insulin Kwikpen) lactulose 20 gram/30 mL oral 20 g (30 mL) PO BID laxative 03/09/24 solution effect 30 days #1,800 mL pantoprazole 40 mg tablet,delayed 40 mg PO DAILY #30 tabs 03/09/24 release pen needle, diabetic 32 gauge x #150 ea 03/09/24 (BD Gifty 2nd Gen Pen Needle) pen needle, diabetic 32 gauge x #50 ea 03/09/24 (BD Ultra-Fine Gifty Pen Needle) tamsulosin 0.4 mg capsule 0.4 mg PO DAILY 90 days #90 caps 03/09/24 alprazolam 0.5 mg tablet 0.5 mg PO BID PRN Anxiety 30 days 03/10/24 #60 tabs gabapentin 300 mg capsule 300 mg PO BID 30 days #60 caps 03/10/24 blood sugar diagnostic (Prodigy No #100 ea 03/19/24 Coding strips) blood-glucose meter (Prodigy #1 ea 03/22/24 Pocket Meter kit) dulaglutide 0.75 mg/0.5 mL 0.75 mg (0.5 mL) subcut MO #2 mL 03/28/24 subcutaneous pen injector ([facility]) bisacodyl 5 mg tablet,delayed 20 mg (4 x 5 mg) PO ONCE 1 day #4 03/29/24 release (Dulcolax (bisacodyl)) tabs polyethylene glycol 3350 17 238 g PO ONCE 1 day #238 grams 03/29/24 gram/dose oral powder (Miralax) spironolactone 25 mg tablet 25 mg PO DAILY 30 days #30 tabs 03/29/24 torsemide 20 mg tablet 40 mg (2 x 20 mg) PO DAILY 30 days 03/29/24 #60 tabs cyanocobalamin (vitamin B-12) 500 1,000 mcg (2 x 500 mcg) PO BEDTIME 04/01/24 mcg tablet #90 tabs Allergies Allergy/AdvReac Type Severity Reaction Status Date / Time KARL Inhibitors Allergy Severe Angioedema Verified 04/14/24 10:39 dextran 40 [DEXTRAN 40] Allergy Intermediate tachycardia Verified 04/14/24 10:39 latex [LATEX] Allergy Mild BLISTERS Verified 04/14/24 10:39 lisinopril [From Zestril] Allergy Mild Unknown Verified 04/14/24 10:39 Iodinated Contrast Media Allergy Unknown UNKNOWN Verified 04/14/24 10:39 [CONTRAST,IV] Review of Systems 2 Review of Systems: All other systems are reviewed and are negative Constitutional: Reports as per HPI and Reports no additional constitutional complaints Eyes: Reports as per HPI and Reports no additional eye complaints Reports system reviewed and no additional complaints, except as documented Cardiovascular: Reports as per HPI and Reports no additional cardiovascular complaints Respiratory: Reports as per HPI and Reports no additional respiratory complaints Gastrointestinal: Reports as per HPI and Reports no additional gastrointestinal complaints Genitourinary: Reports no additional female genitourinary complaints Musculoskeletal: Reports no additional musculoskeletal complaints Skin/Breast: Reports system reviewed and no additional complaints, except as docu Psychiatric: Reports no additional psychiatric complaints Endocrine: Reports no additional endocrine complaints Hematologic/Lymphatic: Reports no additional hematologic/lymphatic complaints Allergic/Immunologic: Reports no additional allergic/immunologic complaints Reports system reviewed and no additional complaints, except as documented and Reports Abnormal speech present [facility] Past Medical History Medical History DMII (diabetes mellitus, type 2) Hyperglycemia Symptomatic anemia Difficulty walking Anemia 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 Streptococcal bacteremia Fracture of left humerus History of prostate cancer Acute lower gastrointestinal bleeding COVID-19 vaccine series completed Hypertension Dyslipidemia Diabetic nephropathy associated with type 2 diabetes mellitus Diabetic 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 associated with type 2 diabetes mellitus 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 Diabetes type 2, uncontrolled Varices of esophagus determined by endoscopy Esophageal varices without bleeding KOEHLER (dyspnea on exertion) Chronic fatigue Iron deficiency anemia CAD (coronary artery disease) ANUJA on CPAP Prostate cancer Spinal stenosis On beta kayy at home IBS (irritable colon syndrome) Aortic stenosis HTN (hypertension) Polyneuropathy GERD (gastroesophageal reflux disease) Surgical History S/P infectious endocarditis H/O cataract extraction Hx of endoscopy History of colonoscopy Hx of esophagogastroduodenoscopy Hx of colonoscopy History of surgery History of transurethral resection of prostate History of surgery History of heart artery stent Family History Family History Father CVD (cardiovascular disease) Past heart attack Mother CVD (cardiovascular disease) Brain cancer Heart problem Daughter Breast cancer Sister Breast cancer Son Alive and well Family/Other Myocardial infarction Liver cancer Social History Social History Household Members: Spouse Household Members Other:: Myesha Housing: House Are you a primary farm or ranch animal caretaker to a significant other at home: No Do you presently have visiting nurse or other home services: Yes (RN 2 x a week) Alcohol intake: never Patient Tobacco Use Status: Never used Tobacco Smoked in Last 30 Days: No e-Cigarette/Vaping Use: Never Used Second Hand Smoke Exposure: No Use of substances other than those prescribed or required for medical reasons: No Advance Directives: Yes Advance Directives on File: Yes Advance Directives Date on File: 08/31/23 Do you have a plan to hurt others: No Plan service: No Current occupational status: retired Cognitive needs: No Hearing needs: No Vision needs: Yes Physical Exam 2 Vital Signs: Vital Signs: Last Vital Signs Temp 98.2 F 04/14/24 10:27 Pulse 66 04/14/24 13:37 Resp 20 04/14/24 13:37 BP 105/43 L 04/14/24 13:37 Pulse Ox 99 04/14/24 13:37 O2 Del Method Room Air 04/14/24 13:37 BMI result Body Mass Index 27.5 Vital signs have been reviewed and appear to be correct. Blood pressure elevated. Heart rate normal. Respiratory rate normal. Temperature normal. Oxygen saturation normal. Appearance: Alert. Oriented X3. No acute distress. Head: Normal external exam. Normocephalic. A small laceration to the right scalp with no active bleeding. No Ochoa signs noted. No raccoon eyes noted Eyes: PERRLA. EOMI. Conjunctiva and sclera normal. Eyelids normal. ENT: TM's Normal. Pharynx normal. Uvula midline. Moist mucous membranes. No trismus noted. No drooling noted. No muffled voice noted. Neck: Normal inspection. Neck supple. FROM. No adenopathy. Thyroid Normal. No meningeal signs. No neck mass noted. CVS: Normal heart rate and rhythm. Heart sound normal. No murmurs noted. Pulses normal throughout. Respiratory: No respiratory distress. Painless inspiration. Breath sounds normal. No wheezes/rales/rhonchi noted. Chest nontender. No accessory muscle usage noted or decreased air movement noted. Abdomen: Soft and nontender. Bowel sounds normal in all 4 quadrants. No distention noted. No organomegaly noted. No visible injury noted. Rectal exam: Brown stool guaiac positive. Back: No CVA tenderness. Full range of motion noted. Skin: Skin warm and dry. Normal skin color. Normal skin turgor. No rashes/lesions/lacerations noted. Extremities: No lower extremity edema. Extremities exhibit normal range of motion. Extremities nontender. Neuro: Oriented X 3. Cranial nerve exam: II-XII are grossly intact No motor deficit. No sensory deficit. Reflexes normal. Course Reevaluation(s) Reevaluation #1: 79-year-old male sustained a mechanical fall with head injury, GCS of [address] is unremarkable. Low H&H s/p blood transfusion 2 days ago for chronic anemia, patient has blood in stool today. Consider type and screen, consider serial CBC. Patient received 1 dose of morphine for back pain patient now is drowsy but easily arousable. UTI, no SIRS or sepsis start on ceftriaxone. Time: 14:38 Medications Administered Discontinued Medications Generic Name Dose Route Start Last Admin Trade Name Freq PRN Reason Stop Dose Admin Morphine Sulfate 2 mg 04/14/24 11:46 04/14/24 12:20 Morphine Sulfate 2 Mg/Ml Cartridge IVPUSH 04/14/24 11:47 2 mg ONCE ONE Administration Protocol Medical Decision Making Differential Diagnosis Differential Diagnoses: The differential diagnosis associated with the presentation includes (Intracranial bleed, cervical spine injury, severe anemia, rectal bleed, electrolyte derangement, pneumonia, pneumothorax, pleural effusion.) Admission/Observation Consideration of admission/observation: Escalation of care including admission/observation considered Consult Healthcare Provider Management of the patient was discussed with: Hospitalist (Dr. Rojas) Lab Data MDM Lab Attestation statement: I reviewed the patient's lab results. 04/14/24 11:42 04/14/24 11:42 Labs: Lab Results 04/14/24 04/14/24 04/14/24 Range/Units 10:35 11:42 13:03 WBC 4.1 L (4.8-10.8) X10*3/uL RBC 2.95 L D (4.60-5.80) X10*6/uL Hgb 8.0 L (14.0-18.0) g/dl Hct 26.4 L (42.0-52.0) % MCV 89.5 (80.0-98.0) fL MCH 27.1 (27.0-33.0) pg MCHC 30.3 L (31.0-36.0) g/dl RDW 16.8 H (11.0-16.0) % Plt Count 103 L (160-400) X10*3/uL MPV 10.6 (9.4-12.4) fL Immature Gran % (Auto) 1.2 H (0.0-0.4) % Neut % (Auto) 72.5 (45-73) % Lymph % (Auto) 10.0 L (20-40) % [place] % (Auto) 11.9 H (2-11) % Eos % (Auto) 3.4 (0-4) % Baso % (Auto) 1.0 (0-2) % Lymph # (Auto) 0.4 L (1.2-4.9) X10*3/uL [place] # (Auto) 0.5 (0.1-1.2) X10*3/uL Eos # (Auto) 0.1 (0.0-0.4) X10*3/uL Baso # (Auto) 0.0 (0.0-0.2) X10*3/uL Abs Immat Gran (auto) 0.05 H (0.00-0.03) X10*3/uL Absolute Neuts (auto) 3.0 (2.0-8.3) x10*3/uL Absolute Nucleated RBC 0.000 (0.0-0.012) X10*3/uL Nucleated RBC % (auto) 0.0 (0.0-0.2) /100WBC PT 13.8 H (11.1-13.3) SEC INR 1.1 (0.9-1.1) APTT 27.1 (26.0-36.8) SEC Sodium 143 (135-145) mmol/L Potassium 3.8 (3.3-5.1) mmol/L Chloride 109 H (96-108) mmol/L Carbon Dioxide 27 (22-29) mmol/L Anion Gap 11 L (12-20) BUN 59 H (9-16) mg/dL Creatinine 1.75 H (0.5-1.4) mg/dL Estim Creat Clear Calc 33.1 Estimated GFR 38 POC Glucose 140 H (60-115) mg/dL Random Glucose 144 H (60-115) mg/dL Calcium 8.4 (8.4-10.2) mg/dL Total Bilirubin 0.8 (0.0-1.0) mg/dL Direct Bilirubin 0.3 (0.0-0.5) mg/dL AST 26 (5-37) U/L ALT 20 (0-40) U/L Alkaline Phosphatase 120 H (39-117) U/L Troponin I High Sens 12.3 (<3.5-35.0) ng/L B-Natriuretic Peptide 166 H (<100) pg/mL Total Protein 5.4 L (6.5-8.0) g/dL Albumin 2.8 L (3.5-5.0) g/dL Lipase 43 (8-78) U/L Urine Color Yellow Urine Appearance Clear Urine pH 5.5 (5.0-9.0) Ur Specific [place] 1.010 (1.005-1.025) Urine Protein Negative (Neg-Trace) mg/dL Urine Glucose (UA) 500 H (Negative) mg/dL Urine Ketones Negative (Negative) mg/dL Urine Blood Negative (Negative) Urine Nitrite Negative (Negative) Ur Leukocyte Esterase Small (1+) H (Negative) Urine RBC 0-2 (0-2) /HPF Urine WBC 21-50 H (0-5) /HPF Ur Squamous Epith Cells 0-2 (0-2) /HPF Urine Bacteria 4+ (None Seen) Hyaline Casts 0-2 (0-2) /LPF Stool Occult Blood POSITIVE (NEGATIVE) Blood Type A Positive Antibody Screen NEGATIVE Independent Interpretation I performed an independent interpretation of an: Plain X-Ray (Chest:1. No acute intrathoracic disease. 2. Cardiomegaly. 3. Healing left humeral neck fracture. ) and CT Scan (Head/cervical spine:1. No acute intracranial hemorrhage or territorial infarction. Diffuse brain parenchymal volume loss and severe chronic white matter microangiopathy. High left frontal scalp laceration with jignesh in place. 2. No evidence of acute cervical spine traumatic injury. Multilevel sp) Radiology Impression Discussion of test interpretation with radiology: I have reviewed the radiologist's reading. Discharge Plan Discharge Clinical Impression: Fall, Anemia, Closed head injury, Acute UTI Patient Disposition: Admitted As Inpatient Print Language: [place] Citizen
[2024-04-14 11:48] LABS: MANUAL DIFF FLAG NO
[2024-04-14 11:49] LABS: OBS Int Ctl Valid YES; OBS1 POSITIVE (NEGATIVE)
[2024-04-14 11:50] LABS: Eosinophils Absolute Auto 0.1 X10*3/uL (0.0-0.4); Eosinophils Percent Auto 3.4 % (0-4); Hematocrit 26.4 % (42.0-52.0); Imm Gran Abs Auto 0.05 X10*3/uL (0.00-0.03); Imm Gran Pct Auto 1.2 % (0.0-0.4); Lymphocytes Absolute Auto 0.4 X10*3/uL (1.2-4.9); Mean Corpuscular HGB Conc 30.3 g/dl (31.0-36.0); Mean Corpuscular Hemoglobin 27.1 pg (27.0-33.0); Mean Corpuscular Volume 89.5 fL (80.0-98.0); Mean Platelet Volume 10.6 fL (9.4-12.4); Monocytes Absolute Auto 0.5 X10*3/uL (0.1-1.2); Monocytes Percent Auto 11.9 % (2-11); Neutrophils Percent Auto 72.5 % (45-73); Platelet Count 103 X10*3/uL (160-400); Red Blood Count 2.95 X10*6/uL (4.60-5.80); Red Cell Distribution Width 16.8 % (11.0-16.0); White Blood Count 4.1 X10*3/uL (4.8-10.8)
[2024-04-14 11:58] LABS: INTERNATIONAL NORM RATIO 1.1 (0.9-1.1); Prothrombin Time 13.8 SEC (11.1-13.3)
[2024-04-14 12:00] LABS: Partial Thromboplastin Time 27.1 SEC (26.0-36.8)
[2024-04-14 12:04] LABS: Alanine Aminotransferase 20 U/L (0-40); Albumin Level 2.8 g/dL (3.5-5.0); Alkaline Phosphatase 120 U/L (39-117); Anion Gap 11 (12-20); Aspartate Amino Transferase 26 U/L (5-37); Bilirubin Direct 0.3 mg/dL (0.0-0.5); Bilirubin Total 0.8 mg/dL (0.0-1.0); Blood Urea Nitrogen 59 mg/dL (9-16); Calcium 8.4 mg/dL (8.4-10.2); Carbon Dioxide 27 mmol/L (22-29); Chloride 109 mmol/L (96-108); Creatinine Clr Calc Pharmacy 33.1; Estimated Glomerular Filt Rate 38; Glucose Random 144 mg/dL (60-115); Lipase 43 U/L (8-78); Potassium 3.8 mmol/L (3.3-5.1); Sodium 143 mmol/L (135-145); Total Protein 5.4 g/dL (6.5-8.0)
[2024-04-14 12:10] LABS: B Type Natriuretic Peptide 166 pg/mL (<100)
[2024-04-14 12:12] LABS: Troponin-I High Sensitivity 12.3 ng/L (<3.5-35.0)
[2024-04-14] MEDS: Morphine Sulfate 2 MG/ML CARTRIDGE IVPUSH (12:20)
[2024-04-14 13:12] LABS: Appearance Urine Clear; Color Urine Yellow; Glucose Urine UA 500 mg/dL (Negative); Leukocyte Esterase Urine Small (1+) (Negative); Nitrite Urine Negative (Negative); PH 5.5 (5.0-9.0); UMIC TRIGGER UACC YES; Urine Blood Negative (Negative); Urine Ketones Negative (Negative); Urine Protein Negative (Neg-Trace)
[2024-04-14 13:14] LABS: Bacteria Urine 4+ (None Seen); Hyaline Casts Urine 0-2 /LPF (0-2); RBC Urine 0-2 /HPF (0-2); Squamous Epithelial Cell Urine 0-2 /HPF (0-2); UACC Culture Trigger YES; WBC Urine 21-50 /HPF (0-5)
--- NOTE | 2024-04-14 14:43 | PM.IMHP ---
History of Present Illness Date of Service: 04/14/24 Chief Complaint: Fall This 79-year-old male has a complex medical history including 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 He presents to the emergency department following a fall. He reports that he was walking with a walker when he tripped and fell, hitting his head and sustaining a laceration and scalp hematoma, as well as a skin tear on the left elbow. There was no loss of consciousness (LOC), and he reports no dizziness prior to the fall. There was no hypoglycemia. The patient has slurred speech, which he attributes to recent dental work, although his reports that it has worsened. A head CT shows no acute findings, and a cervical spine CT shows no fracture or dislocation, and he no longer requires a cervical collar. He has no focal neurological deficits. Review of Systems Review of Systems: Gen: no fever Resp: no sob, no cough CV: no chest, no KOEHLER, no leg edema GI: No n/v, no abd pain Neuro: No confusion [facility] Medical History DMII (diabetes mellitus, type 2) Hyperglycemia Symptomatic anemia Difficulty walking Anemia 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 Streptococcal bacteremia Fracture of left humerus History of prostate cancer Acute lower gastrointestinal bleeding COVID-19 vaccine series completed Hypertension Dyslipidemia Diabetic nephropathy associated with type 2 diabetes mellitus Diabetic 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 associated with type 2 diabetes mellitus 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 Diabetes type 2, uncontrolled Varices of esophagus determined by endoscopy Esophageal varices without bleeding KOEHLER (dyspnea on exertion) Chronic fatigue Iron deficiency anemia CAD (coronary artery disease) ANUJA on CPAP Prostate cancer Spinal stenosis On beta kayy at home IBS (irritable colon syndrome) Aortic stenosis HTN (hypertension) Polyneuropathy GERD (gastroesophageal reflux disease) Family History Father CVD (cardiovascular disease) Past heart attack Mother CVD (cardiovascular disease) Brain cancer Heart problem Daughter Breast cancer Sister Breast cancer Son Alive and well Family/Other Myocardial infarction Liver cancer Surgical History S/P infectious endocarditis H/O cataract extraction Hx of endoscopy History of colonoscopy Hx of esophagogastroduodenoscopy Hx of colonoscopy History of surgery History of transurethral resection of prostate History of surgery History of heart artery stent Social History Household Members: Spouse Household Members Other:: Myesha Housing: House Are you a primary child care coordinator to a significant other at home: No Do you presently have visiting nurse or other home services: Yes (RN 2 x a week) Alcohol intake: never Patient Tobacco Use Status: Never used Tobacco Smoked in Last 30 Days: No e-Cigarette/Vaping Use: Never Used Second Hand Smoke Exposure: No Use of substances other than those prescribed or required for medical reasons: No Advance Directives: Yes Advance Directives on File: Yes Advance Directives Date on File: 08/31/23 Do you have a plan to hurt others: No Plan service: No Current occupational status: retired Cognitive needs: No Hearing needs: No Vision needs: Yes Meds Allergies Allergy/AdvReac Type Severity Reaction Status Date / Time KARL Inhibitors Allergy Severe Angioedema Verified 04/14/24 10:39 dextran 40 [DEXTRAN 40] Allergy Intermediate tachycardia Verified 04/14/24 10:39 latex [LATEX] Allergy Mild BLISTERS Verified 04/14/24 10:39 lisinopril [From Zestril] Allergy Mild Unknown Verified 04/14/24 10:39 Iodinated Contrast Media Allergy Unknown UNKNOWN Verified 04/14/24 10:39 [CONTRAST,IV] Home Medications ?Medication ?Instructions ?Recorded ?Confirmed ?Last Taken ?Type bumetanide 1 mg tablet 1 mg PO DAILY 04/14/24 04/14/24 Unknown History insulin regular hum U-500 conc 500 20 unit subcut TIDAC 04/14/24 04/14/24 04/14/24 07:00 History unit/mL(3 mL) subcut pen (Humulin R U-500 (Conc) Insulin Kwikpen) lactulose 10 gram/15 mL oral 30 ml PO BID 04/14/24 04/14/24 Unknown History solution Physical Exam Vital Signs and Narrative: Vital Signs: Last Vital Signs Temp 98.2 F 04/14/24 10:27 Pulse 66 04/14/24 13:37 Resp 20 04/14/24 13:37 BP 105/43 L 04/14/24 13:37 Pulse Ox 99 04/14/24 13:37 O2 Del Method Room Air 04/14/24 13:37 BMI result Body Mass Index 27.5 Constitutional: Alert, in no distress, overweight. Mental Status: Oriented to person, place and time. Eyes: Pupils are equal, round and reactive to light. Ear, Nose and Throat: Oropharynx clear, mucous membranes moist. Ears and nose without deformities. Trachea midline. Respiratory: Clear to auscultation. No wheezing, rales or rhonchi. Cardiovascular: S1 S2 regular. No murmurs, rubs or gallops. Gastrointestinal: Abdomen soft, non-tender, non-distended. Normal bowel sounds.? Neurologic: Cranial nerves II-XII grossly intact. No focal neurological deficits. Moves all extremities spontaneously.? Skin: No rashes or lesions.? Musculoskeletal: No cyanosis or clubbing. Psychiatric: Normal mood and affect? Results Labs 04/14/24 11:42 04/15/24 05:08 Labs: Laboratory Results - last 24 hr 04/14/24 04/14/24 04/14/24 10:35 11:42 13:03 MCV 89.5 MCH 27.1 MCHC 30.3 L RDW 16.8 H Plt Count 103 L MPV 10.6 Immature Gran % (Auto) 1.2 H Neut % (Auto) 72.5 Lymph % (Auto) 10.0 L [place] % (Auto) 11.9 H Eos % (Auto) 3.4 Baso % (Auto) 1.0 Lymph # (Auto) 0.4 L [place] # (Auto) 0.5 Eos # (Auto) 0.1 Baso # (Auto) 0.0 Abs Immat Gran (auto) 0.05 H Absolute Neuts (auto) 3.0 Absolute Nucleated RBC 0.000 Nucleated RBC % (auto) 0.0 PT 13.8 H INR 1.1 APTT 27.1 Anion Gap 11 L Estim Creat Clear Calc 33.1 Estimated GFR 38 POC Glucose 140 H Random Glucose 144 H Calcium 8.4 Total Bilirubin 0.8 Direct Bilirubin 0.3 AST 26 ALT 20 Alkaline Phosphatase 120 H Troponin I High Sens 12.3 B-Natriuretic Peptide 166 H Total Protein 5.4 L Albumin 2.8 L Lipase 43 Urine Color Yellow Urine Appearance Clear Urine pH 5.5 Ur Specific [place] 1.010 Urine Protein Negative Urine Glucose (UA) 500 H Urine Ketones Negative Urine Blood Negative Urine Nitrite Negative Ur Leukocyte Esterase Small (1+) H Urine RBC 0-2 Urine WBC 21-50 H Ur Squamous Epith Cells 0-2 Urine Bacteria 4+ Hyaline Casts 0-2 Stool Occult Blood POSITIVE Blood Type A Positive Antibody Screen NEGATIVE Imaging Radiologist's Impressions: Impressions Chest X-Ray 04/14/24 11:58 IMPRESSION: 1. No acute intrathoracic disease. 2. Cardiomegaly. 3. Healing left humeral neck fracture. Cervical Spine CT 04/14/24 12:20 IMPRESSION: 1. No acute intracranial hemorrhage or territorial infarction. Diffuse brain parenchymal volume loss and severe chronic white matter microangiopathy. High left frontal scalp laceration with jignesh in place. 2. No evidence of acute cervical spine traumatic injury. Multilevel spondylosis with moderate to severe central canal stenosis and a broad-based central disc protrusion at the C6-C7 level. Chronic deformity of the C5 and C6 vertebral bodies with endplate fusion and focal kyphosis. 3. Chronic ossification/calcification of the longus colli muscles at the C2 level. Head CT 04/14/24 12:20 IMPRESSION: 1. No acute intracranial hemorrhage or territorial infarction. Diffuse brain parenchymal volume loss and severe chronic white matter microangiopathy. High left frontal scalp laceration with jignesh in place. 2. No evidence of acute cervical spine traumatic injury. Multilevel spondylosis with moderate to severe central canal stenosis and a broad-based central disc protrusion at the C6-C7 level. Chronic deformity of the C5 and C6 vertebral bodies with endplate fusion and focal kyphosis. 3. Chronic ossification/calcification of the longus colli muscles at the C2 level. Assessment and Plan (1) Fall: Status: Acute (2) Closed head injury: Status: Acute Plan 79-year-old male with history of hepatic cirrhosis complicated by esophageal varices and ascites, insulin-dependent type 2 diabetes, diabetic 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, hypertension, hyperlipidemia, history of prostate cancer, ANUJA on CPAP, chronic iron deficiency anemia, CAD on DAPT, h/o endocarditis s/p bioprosthetic TAVR, s/p pacemaker here with fall #Fall, description is mechanical.. -Fall precaution -PT and OT eval #Slur speech, CT head negative, according patient, ongoing since dental work up, thinks it is worse, possible component of UTI and Benzo use -neur check, PT OT, if worse consider Neuro consult. PT is not a candidate for thrombolytic therapy if stroke was a consideration #UTI--started Ceftriaxone 04/14, continue #Back pain--xray of back #CKD 3B--stable #Chronic anemia, requiring periodic transfusion, H/H is above transfusion threshold # hepatic cirrhosis complicated by esophageal varices, ascites -continue meds # insulin-dependent type 2 diabetes -POC glucose, advance to diabetic diet, admelog on sliding scale -On Farsiga, Trulicity, Humalin 20 tid--Not on frumulary. -Add Low dose insulin at bedtime # CAD/HLD -Statin, Coreg, ASA (hold with any signs of bleeding) # BPH -continue tamsulosin, finasteride # diabetic 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 -hold gabapentin given sedation/encephalopathy # ANUJA on CPAP -CPAP bedtime DVT prophylaxis-compression d/t anemia that required recent transfusion, and scalp hematoma Full code Obs Quality Stroke Does the patient have a stroke diagnosis?: No VTE Prior VTE?: No VTE Risk Level:: Medical - moderate - high VTE Device Contraindication: N/A - Device Ordered VTE Drug Contraindication: Treatment Not Tolerated
--- NOTE | 2024-04-14 15:56 | MHC.EDTECH ---
[place] catheter placed on patient by this PCT per patient's request.
--- NOTE | 2024-04-14 16:16 | PHA.MEDREC ---
Addendum entered by Александр Cool, [facility] 04/14/24 16:44: Med Rec double checked Original Note: Pharmacy Consult ? Medication Reconciliation Pharmacy has completed the medication reconciliation. Spoke to patient and family at bedside. Patient poor historian and family was not sure what patient took. Patient was able to confirm what insulins he was on and how hes taking them. He is taking Trulicity 0.75 mg once a week on Mondays and he took it this past Thursday he said. Hes also on Humulin R U-500 he injects 20 units TIDAC, he said he took that this AM. He also is on Tresiba FelxTouch 6 units @bedtime, he said he took that last night. I used his claims and a recent discharge packet from 02/01/24 to confirm the rest of his medications but everything seemed to match in the system.
[2024-04-14] MEDS: cefTRIAXone sodium 1 GM in 0.9 % Sodium Chloride 50 ML IV (16:18)
[2024-04-14] MEDS: 0.9 % Sodium Chloride Flush 3 ML SYRINGE IVFLUSH (16:19)
--- NOTE | 2024-04-14 16:28 | PC.NURSE ---
slurred speech noted. no unilat neuro deficits noted. able to follow commands. increased back pain after x rays. tylenol given but patient requesting stronger med. hospitalist approached for addidtional orders. nayana rolle.
[2024-04-14 16:36] LABS: Ammonia 93 umol/L (13-55)
[2024-04-14] MEDS: Morphine Sulfate 2 MG/ML CARTRIDGE 1 MG IVPUSH (18:04)
[2024-04-14 18:06] LABS: Glucose, Whole Blood 110 mg/dL (60-115)
--- NOTE | 2024-04-14 19:24 | PC.NURSE ---
son blade on phone. states he's unable to get [facility] to the [facility]. will make phone calls to see if it can be brought in tomorrow.
[2024-04-14] MEDS: Empagliflozin 10 MG TABLET PO (20:24)
[2024-04-14] MEDS: carvediloL 6.25 MG TABLET PO (20:24)
[2024-04-14] MEDS: Cyanocobalamin (Vitamin B-12) 1,000 MCG TABLET 1000 MCG PO (20:24)
[2024-04-14] MEDS: Atorvastatin Calcium 40 MG TABLET PO (20:24)
[2024-04-14] MEDS: Gabapentin 300 MG CAPSULE PO (20:24)
[2024-04-14] MEDS: Lactulose 20 GM/30 ML SOLUTION PO (20:25)
[2024-04-14] MEDS: Insulin Glargine,Hum.rec.anlog 100 UNIT/ML 10 ML VIAL SUBCUT (20:26)
[2024-04-14 20:28] LABS: Glucose, Whole Blood 159 mg/dL (60-115)
[2024-04-14] MEDS: Insulin Lispro 100 UNIT/ML 3 ML VIAL SUBCUT (20:36)
--- NOTE | 2024-04-14 22:29 | PC.NURSE ---
sleeping soundly. NAD
[2024-04-15] VITALS (12 sets, daily range): BP systolic 96–120; BP diastolic 42–52; PULSE 63–76; RESP 12–18; TEMP 36.6–36.8; O2SAT 97–98
--- NOTE | 2024-04-15 00:40 | MHC.EDTECH ---
This tech took over care of patient at 2300,rounds and vitals competed,patient has a [place] Cath in place done by previous shift,emptied 1200MLS of yellow urine from bag.Patient has a skin tear to left upper arm,bandaged was half fallen off,bandaged removed,cleaned with normal saline and changed to a telfa DSG with a cling wrap patient tolerated well RN is aware call allen in reach
--- NOTE | 2024-04-15 02:28 | MHC.EDTECH ---
Hourly rounds and vitals completed,BP is low 104/42 RN was made aware,patient repositioned to comfort call allen in reach
--- NOTE | 2024-04-15 03:00 | MHC.EDTECH ---
Belongings list updated,patient has upper denture and a lower partial a wallet with $81.00 Mcnally MATI Calderon at bedside with this tech,
--- NOTE | 2024-04-15 04:29 | MHC.EDTECH ---
Hourly rounds and vitals completed,BP is low 96/48 RN is aware,patient is resting comfortably ,call allen in reach
[2024-04-15] MEDS: Midodrine HCl 5 MG TABLET PO (04:31)
[2024-04-15 05:56] LABS: Alanine Aminotransferase 21 U/L (0-40); Albumin Level 2.7 g/dL (3.5-5.0); Alkaline Phosphatase 118 U/L (39-117); Anion Gap 13 (12-20); Aspartate Amino Transferase 30 U/L (5-37); Bilirubin Total 0.6 mg/dL (0.0-1.0); Blood Urea Nitrogen 57 mg/dL (9-16); Carbon Dioxide 22 mmol/L (22-29); Chloride 111 mmol/L (96-108); Creatinine Clr Calc Pharmacy 32.9; Estimated Glomerular Filt Rate 37; Glucose Random 230 mg/dL (60-115); Potassium 4.2 mmol/L (3.3-5.1); Sodium 142 mmol/L (135-145); Total Protein 5.3 g/dL (6.5-8.0)
--- NOTE | 2024-04-15 06:01 | MHC.EDTECH ---
Hourly rounds and vitals completed,emptied 500MLS of yellow urine. Patient repositioned to comfort call allen in reach
[2024-04-15] MEDS: Omeprazole 20 MG CAPSULE.DR PO (06:36)
[2024-04-15 07:28] LABS: Glucose, Whole Blood 172 mg/dL (60-115)
[2024-04-15] MEDS: Insulin Lispro 100 UNIT/ML 3 ML VIAL SUBCUT ×4 (07:29→21:06)
[2024-04-15] MEDS: 0.9 % Sodium Chloride Flush 3 ML SYRINGE IVFLUSH ×3 (08:15→21:10)
[2024-04-15] MEDS: Bumetanide 1 MG TABLET PO (08:15)
[2024-04-15] MEDS: Spironolactone 25 MG TABLET PO (08:16)
[2024-04-15] MEDS: Ezetimibe 10 MG TABLET PO (08:16)
[2024-04-15] MEDS: Aspirin Enteric Coated 81 MG TABLET.DR PO (08:16)
[2024-04-15] MEDS: carvediloL 6.25 MG TABLET PO (08:16)
[2024-04-15] MEDS: Tamsulosin HCL 0.4 MG CAPSULE PO (08:17)
[2024-04-15] MEDS: Gabapentin 300 MG CAPSULE PO ×2 (08:17→21:09)
[2024-04-15] MEDS: Empagliflozin 10 MG TABLET PO (08:17)
[2024-04-15] MEDS: Lactulose 20 GM/30 ML SOLUTION PO ×2 (08:17→21:10)
[2024-04-15] MEDS: Finasteride 5 MG TABLET PO (08:26)
[2024-04-15] MEDS: Ferrous Sulfate 324 MG TABLET.DR PO (08:37)
[2024-04-15 12:33] LABS: Glucose, Whole Blood 214 mg/dL (60-115)
--- NOTE | 2024-04-15 12:34 | PC.NURSE ---
obtained report from tello and took over patient care at 11am, dwight- charge nurse and tello have been in contact with hospitalist about patients refusal of admission, pt suggested short term rehab which patient is also refusing- will attempt to get ahold of inpt case management to sort out pts admit/discharge. currently pt a&ox3, neuro intact, poc obtained 214- pt to be medicated when lunch arrives, cardiac monitor technician intact paced in the 70s on monitor, vss, pts abd firm/distended- pt states thats his baseline and has no abd pain/discomfort, sam cath patient draining yellow urine, as stated pt wanting to discharge to home, call allen within reach, will continue to monitor
[2024-04-15 13:17] LABS: Glucose, Whole Blood 225 mg/dL (60-115)
--- NOTE | 2024-04-15 13:39 | MHC.SLORD ---
Speech Language Pathology Order Status: Per Dr. Terry, patient has been swallowing without difficulty and eval is no longer needed. MD to cx order. Please re-refer with any changes or if BRAKE ASSEMBLER can be of further assistance.
[2024-04-15] MEDS: cefTRIAXone sodium 1 GM in 0.9 % Sodium Chloride 50 ML IV (14:34)
--- NOTE | 2024-04-15 14:36 | PC.NURSE ---
pt medicated per order
--- NOTE | 2024-04-15 15:26 | MHC.CM.PN ---
BRIDGET MET WITH PT WHO IS AWARE PT IS RECOMMENDING STR HOWEVER HE STATES HE IS NOT GOING, HE SAYS HE WILL BE GOING HOME WITH HIS AND THIS FALL WAS NOT THE RESULT OF WEAKNESS, IT WAS BECAUSE HE TRIPPED OVER A SMALL RUG IN HIS HOME. HE SAYS HE IS THROWING THAT RUG OUT. BRIDGET SPOKE TO PTS SON, DENISE [phone], HE REPORTS HE CANNOT GET THE PT TODAY AND WOULD LIKE HIM TO STAY AT LEAST OVERNIGHT TO ENSURE HE IS WELL. HE IS UNSURE IF HE CAN PROVIDE TRANSPORT TOMORROW, BUT DOES NOT WANT TO PT TO GO HOME TODAY. DENISE CONFIRMS HIS MOTHER, THE PTS , WHO HAS DEMENTIA, WILL BE ABSOLUTELY FINE IF THE PT REMAINS OVERNIGHT.
[2024-04-15 16:48] LABS: Glucose, Whole Blood 219 mg/dL (60-115)
--- NOTE | 2024-04-15 17:08 | PC.NURSE ---
per dr galvan the patients son is now not coming to last picker the patient today and he should get an inpt bed. this nurse called the hub and let them know he will need the inpt bed afterall.
[2024-04-15 18:28] LABS: Hematocrit 27.9 % (42.0-52.0); Hemoglobin 8.7 g/dl (14.0-18.0); Mean Corpuscular HGB Conc 31.2 g/dl (31.0-36.0); Mean Corpuscular Volume 89.7 fL (80.0-98.0); Mean Platelet Volume 11.5 fL (9.4-12.4); Platelet Count 104 X10*3/uL (160-400); Red Blood Count 3.11 X10*6/uL (4.60-5.80); White Blood Count 4.1 X10*3/uL (4.8-10.8)
[2024-04-15 18:41] LABS: Anion Gap 13 (12-20); Blood Urea Nitrogen 50 mg/dL (9-16); Calcium 8.3 mg/dL (8.4-10.2); Carbon Dioxide 25 mmol/L (22-29); Chloride 110 mmol/L (96-108); Creatinine Clr Calc Pharmacy 34.6; Estimated Glomerular Filt Rate 40; Glucose Random 237 mg/dL (60-115); Potassium 4.3 mmol/L (3.3-5.1); Sodium 144 mmol/L (135-145)
[2024-04-15 18:42] LABS: Glucose, Whole Blood 196 mg/dL (60-115)
--- NOTE | 2024-04-15 18:42 | P.PNIM_ITS ---
Subjective Subjective Date of Service: 04/15/24 Interval History: f/u on fall, anemia, evaluated by PT and recommended for STR, however he has been very resistant to going. his son and daughter in law have raised serious concern about patient been able to take of hismsel and his who has advanced dementia at home his looks frail and has consistently insisted about going home, in the end he agreed to go to rehab Physical Exam 2 Vital Signs: Vital Signs: Last Vital Signs Temp 98.2 F 04/15/24 16:10 Pulse 71 04/15/24 16:10 Resp 15 04/15/24 16:10 BP 108/46 L 04/15/24 16:10 Pulse Ox 98 04/15/24 16:10 O2 Del Method Room Air 04/15/24 16:10 BMI result Body Mass Index 27.5 Const: Other: General: AO X 3, no acute distre Resp: CTA bilateral CVS: S1,S2,RRR GI: +BS, NT, no distention Skin: has multiple bruses on arms Neuro: motor grossly intact Psych: appropriate affect Objective Data Active Medications Acetaminophen (Acetaminophen 325 Mg Tablet) 650 mg PO Q6H PRN PRN Reason: Pain, Mild (Pain Scale 1-3), fever or headache Alprazolam (Alprazolam 0.5 Mg Tablet) 0.5 mg PO BID PRN PRN Reason: Anxiety Aspirin (Aspirin Enteric Coated 81 Mg Tablet.) 81 mg PO DAILY [facility] Last Admin: 04/15/24 08:16 Dose: 81 mg Documented By: BENIGNO Atorvastatin Calcium (Atorvastatin Calcium 40 Mg Tablet) 40 mg PO BEDTIME [facility] Last Admin: 04/14/24 20:24 Dose: 40 mg Documented By: COMFORT Bumetanide (Bumetanide 1 Mg Tablet) 1 mg PO DAILY [facility]; Protocol Last Admin: 04/15/24 08:15 Dose: 1 mg Documented By: BENIGNO Calcium Carbonate (Calcium Carbonate 750 Mg Tab.Chew) 750 mg PO Q4H PRN PRN Reason: Heartburn Carvedilol (Carvedilol 6.25 Mg Tablet) 6.25 mg PO BID [facility]; Protocol Last Admin: 04/15/24 08:16 Dose: 6.25 mg Documented By: BENIGNO Cyanocobalamin (Cyanocobalamin (Vitamin B-12) 1,000 Mcg Tablet) 1,000 mcg PO BEDTIME [facility] Last Admin: 04/14/24 20:24 Dose: 1,000 mcg Documented By: COMFORT Ezetimibe (Ezetimibe 10 Mg Tablet) 10 mg PO DAILY [facility] Last Admin: 04/15/24 08:16 Dose: 10 mg Documented By: BENIGNO Empagliflozin (Empagliflozin 10 Mg Tablet) 10 mg PO DAILY [facility] Last Admin: 04/15/24 08:17 Dose: 10 mg Documented By: BENIGNO Ferrous Sulfate (Ferrous Sulfate 324 Mg Tablet.Dr) 324 mg PO DAILY [facility] Last Admin: 04/15/24 08:37 Dose: 324 mg Documented By: BENIGNO Finasteride (Finasteride 5 Mg Tablet) 5 mg PO DAILY [facility] Last Admin: 04/15/24 08:26 Dose: 5 mg Documented By: BENIGNO Gabapentin (Gabapentin 300 Mg Capsule) 300 mg PO BID [facility] Last Admin: 04/15/24 08:17 Dose: 300 mg Documented By: BENIGNO Glucose (Glucose Gel 15 Gm Gel..Gram.) 15 gm PO Q15M PRN; Protocol PRN Reason: per Hypoglycemia Standing Ord. Dextrose (D10) 250 mls @ 750 mls/hr IV Q15M PRN; Protocol PRN Reason: per Hypoglycemia Standing Ord. Ceftriaxone Sodium 1 gm/ (Sodium Chloride) 50 mls @ 100 mls/hr IV Q24H [facility] Last Infusion: 04/15/24 15:04 Dose: Infused Documented By: KELLI Insulin Glargine (Insulin Glargine,Hum.Rec.Anlog 100 Unit/Ml 10 Ml Vial) 6 unit SUBCUT BEDTIME [facility] Insulin Human Lispro (Insulin Lispro 100 Unit/Ml 3 Ml Vial) 0 unit SUBCUT QIDACHS [facility]; Protocol Last Admin: 04/15/24 14:34 Dose: 1 unit Documented By: KELLI Lactulose (Lactulose 20 Gm/30 Ml Solution) 20 gm PO BID [facility] Last Admin: 04/15/24 08:17 Dose: 20 gm Documented By: BENIGNO Magnesium Hydroxide (Milk Of Magnesia 30 Ml Oral.Susp) 30 ml PO DAILY PRN PRN Reason: Constipation Melatonin (Melatonin 3 Mg Tablet) 6 mg PO BEDTIME PRN PRN Reason: Insomnia Morphine Sulfate (Morphine Sulfate 2 Mg/Ml Cartridge) 1 mg IVPUSH Q6H PRN; Protocol PRN Reason: Pain, Severe (Pain Scale 7-10) Last Admin: 04/14/24 18:04 Dose: 1 mg Documented By: COMFORT Non-Formulary Medication (Dulaglutide [Trulicity]) 0.75 mg SUBCUT MO [facility] Omeprazole (Omeprazole 20 Mg Capsule.) 20 mg PO DAILY@0630 [facility] Last Admin: 04/15/24 06:36 Dose: 20 mg Documented By: RICHIE Ondansetron HCl (Ondansetron Hcl 4 Mg/2 Ml Vial) 4 mg IVPUSH Q8H PRN PRN Reason: Nausea and Vomiting Polyethylene Glycol (Polyethylene Glycol 3350 17 Gm Powd.Pack) 17 gm PO DAILY PRN PRN Reason: Constipation Sodium Chloride (0.9 % Sodium Chloride Flush 3 Ml Syringe) 3 ml IVFLUSH QSHIFT [facility] Last Admin: 04/15/24 17:06 Dose: 3 ml Documented By: KELLI Spironolactone (Spironolactone 25 Mg Tablet) 25 mg PO DAILY [facility]; Protocol Last Admin: 04/15/24 08:16 Dose: 25 mg Documented By: BENIGNO Tamsulosin HCl (Tamsulosin Hcl 0.4 Mg Capsule) 0.4 mg PO DAILY [facility] Last Admin: 04/15/24 08:17 Dose: 0.4 mg Documented By: BENIGNO Labs 04/16/24 09:26 04/15/24 18:21 Labs: Laboratory Results - last 24 hr 04/14/24 04/15/24 04/15/24 20:24 05:08 07:21 MCV MCH MCHC RDW Plt Count MPV Absolute Nucleated RBC Nucleated RBC % (auto) Anion Gap 13 Estim Creat Clear Calc 32.9 Estimated GFR 37 POC Glucose 159 H 172 H Random Glucose 230 H Calcium 8.0 L Total Bilirubin 0.6 AST 30 ALT 21 Alkaline Phosphatase 118 H Total Protein 5.3 L Albumin 2.7 L 04/15/24 04/15/24 04/15/24 12:28 13:11 16:45 MCV MCH MCHC RDW Plt Count MPV Absolute Nucleated RBC Nucleated RBC % (auto) Anion Gap Estim Creat Clear Calc Estimated GFR POC Glucose 214 H 225 H 219 H Random Glucose Calcium Total Bilirubin AST ALT Alkaline Phosphatase Total Protein Albumin 04/15/24 04/15/24 18:21 18:38 MCV 89.7 MCH 28.0 MCHC 31.2 RDW 17.0 H Plt Count 104 L MPV 11.5 Absolute Nucleated RBC 0.000 Nucleated RBC % (auto) 0.0 Anion Gap 13 Estim Creat Clear Calc 34.6 Estimated GFR 40 POC Glucose 196 H Random Glucose 237 H Calcium 8.3 L Total Bilirubin AST ALT Alkaline Phosphatase Total Protein Albumin Microbiology Microbiology Results: Microbiology 04/14/24 15:41 Blood Culture - Preliminary Blood - Venous No growth after 24 hours. 04/14/24 15:29 Blood Culture - Preliminary Blood - Venous No growth after 24 hours. 04/14/24 Unknown Urine Culture - Final Urine clean catch - Clean Catch Midstream Assessment and Plan (1) Acute on chronic anemia: Status: Acute Plan 79-year-old male with history of hepatic cirrhosis complicated by esophageal varices and ascites, insulin-dependent type 2 diabetes, diabetic 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, hypertension, hyperlipidemia, history of prostate cancer, ANUJA on CPAP, chronic iron deficiency anemia, CAD on DAPT, h/o endocarditis s/p bioprosthetic TAVR, s/p pacemaker here with fall #Fall, description is mechanical.. -Fall precaution -PT and OT eval #Slur speech, CT head negative, according patient, ongoing since dental work up, thinks it is worse, possible component of UTI and Benzo use--at this time he appears to be at his baseline -PT has recommended STR but he has been reluctant but is finally agreable. #elevated ammonia--likely early hepatic encephalopathy, given lactulose #UTI--started Ceftriaxone 04/14, continue #Back pain--xray of back (lumbar and thoracic) no fracture #CKD 3B--stable #Chronic anemia, requiring periodic transfusion, H/H is above transfusion threshold # hepatic cirrhosis complicated by esophageal varices, ascites -continue meds # insulin-dependent type 2 diabetes -POC glucose, diabetic diet, admelog on sliding scale -On Farsiga, Trulicity, Humalin 20 tid--Not on frumulary. -Lantus in place of Tresiba, Jariance for Farsiga.. and adjust as needed # CAD/HLD -Statin, Coreg, ASA (hold with any signs of bleeding) # BPH -continue tamsulosin, finasteride # diabetic 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 -hold gabapentin given sedation/encephalopathy # ANUJA on CPAP -CPAP bedtime DVT prophylaxis-low plat and use of device, out of bed Full code Obs to inpatient D/t fall from UTI, hepatic encephalopathy and required at least 2 midnihhts for management. Pt doesn't prove capability to be able to care for who is frail and demented, this has been a concern of trhe son (HCP) and [id number] who have repeated tried to convince them of alternate living situation, unfortunately the patient has continued to resist any idea other than staying in his house.. The son lives at least an hour a day and does his best to check up on them and there is also an individual who comes 4 times a day and help be limitted time and not at night. Case management will look into inquiry into protective services. Quality Stroke Does the patient have a stroke diagnosis?: No VTE Prior VTE?: No VTE Risk Level:: Medical - moderate - high VTE Device Contraindication: N/A - Device Ordered VTE Drug Contraindication: Treatment Not Tolerated
--- NOTE | 2024-04-15 19:04 | MHC.CM.NN ---
CM received tiger text that patient will d/c home in the morning. Family arrived. Family very concerned about patient discharging home, as they are concerned about him falling again. Pt adamantly refusing to go to [facility]. Family and patient are agreeable to home PT. Pt is active with [facility]. Pt has [facility] 15 hours/week. CM updated [facility] of need for home PT. Awaiting Dr. Terry for discharge.
--- NOTE | 2024-04-15 19:08 | MHC.CM.ED ---
Addendum entered by Annia Whitney 04/15/24 19:33: Pt will move to 361 Original Note: CM received tiger that patient would discharge to home tomorrow at the request of the family. Family is now present and are concerned about STR. Explained that patient has refused STR and is adamant about discharging to home. Pt and family are agreeable to home PT. Patient is active with [facility]. Request in [facility] for home PT. 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 Pt lives with his elderly , who has dementia. Pt uses a walker and a cane. Family tell CM that they live an hour away, work and are unable to provide care for patient or on a consistent basis. They tell CM that the patient and his have a life alert. They tell CM that they have been trying to work with this patient regarding assisted living, but he will not hear of it. They do not have a working knowledge of the finances required for assisted living/LTC. Referral will be placed with financial services. Referrals will be placed with acute rehabs for STR, as patient is now agreeable after speaking with Dr. Terry. [facility] is aware via [facility] that patient will be admitted and that referrals will be placed for rehab. Family tell CM and Dr. Terry that the patient's has dementia. They tells us that the BILLET BED OPERATOR helps both of them. She has been alone. They have checked on her. They call her twice a day to remind her about her medications. They have brought her food. CM questioned if she could ask for help if needed. They feel she can dial 911 and has a life alert. CM will file an elder at risk with [facility]. Dr. Terry will order a psych for capacity. Son, Blaise ([phone]). Pt has a bed and will be moved to room 468.
--- NOTE | 2024-04-15 19:09 | PC.NURSE ---
while turning/positioning patient this nurse changed the condom cath as it fell off, full bed change performed as well, sacrum/upper buttocks was blanching red- allevyn life sacrum placed to prevent breakdown.
--- NOTE | 2024-04-15 19:38 | PC.NURSE ---
upon the patient getting ready to go to [facility], the transporter stated his room changed, this nurse noted that the patients room changed to [id number], this nurse called the hub which stated that Dr. Terry told them he is being downgraded to med/surg he no longer needs [facility] anymore. The patient has been agitated about going home vs being admitted,
--- OUTSIDE RECORDS SUMMARY | 2024-04-15 20:03 | XMS_ITS | Continuity of Care Document ---
Author Organization [facility] ter Address [address] [place] [address]- Care Team Providers Care Stoner Hand Name Role Phone Vita ROONEY, Maninder Sanon Primary Care Physic naomi Encounter [facility] Date(s): 01/23/23 - 02/07/[address] [address]- Encounter Diagnosis Troponin level elevated(Discharge Diagnosis) - 01/22/23 Weakness(Final) - 01/21/23 Coronary artery disease(Discharge Diagnosis) - 01/22/23 S/P TAVR (transcatheter aortic valve replacement)(Discharge Diagnosis) - 01/22/23 Pacemaker(Discharge Diagnosis) - 01/22/23 Discharge Disposition: A-D/C Home Attending Physician: Susu Holguin MD Admitting Physician: Christopher Shay MD Referring Physician: Not on Staff, Referring MD Allergies, Adverse Reactions, Alerts Substance Reaction Severity Status lisinopril 1 throat swelling Active Contrast Dye Unknown Unknown Active Latex Rash Active pregabalin hallucination Active TiZANidine Hydrochloride hallucination Ac tive 1throat swelling Immunizations Given and Recorded Vaccine Date Status Refusal Reason SARS-CoV-2 (COVID-19) mRNA-1273 vaccine 10/11/21 R ecorded SARS-CoV-2 (COVID-19) mRNA-1273 vaccine 11/14/20 R ecorded SARS-CoV-2 (COVID-19) mRNA-1273 vaccine 10/17/20 R ecorded pneumococcal 23-valent vaccine 07/16/20 Recorded tetanus-diphtheria toxoids (Td) 06/16/19 Recorded Medications Aldactone 100 mg oral tablet 100 mg, 1, tablet, By Mouth, Daily, For ascites. Hold if systolic blood pressure is below 120 mmHg., # 90 tablet, Refills 0, Tot. Refills 0, Maintenance, 05/27/23 12:32:00 EDT, Route to Pharmacy Electronically, [facility] #[id number], Partial nikhil... Start Date: 02/07/23 Status: Ordered aspirin 81 mg oral delayed release tablet 81 mg, 1, tablet, By Mouth, Daily, Do not start aspirin until 06/16/2022, # 90 tablet, Refills 0, Tot. Refills 0, Maintenance, 02/07/23 12:28:00 EDT, Route to Pharmacy Electronically, [facility] #[id number], Partial fill upon patient request if t... Start Date: 02/07/23 Status: Ordered bethanechol 25 mg oral tablet 25 mg, 1, tablet, By Mouth, 2 times a day, Refills 0, Maintenance, 01/21/23 16:11:00 EDT, Partial fill upon patient request if the prescription is for a schedule II opioid drug. Start Date: 01/21/23 Stop Date: 01/31/23 Status: Ordered Blood Pressure Monitor See Instructions, # 1 kit, Maintenance, Blood pressure cuff ICD: I10, 02/07/23 16:32:00 EDT, Supply Start Date: 02/07/23 Status: Ordered clopidogrel 75 mg oral tablet 75 mg, 1, tablet, By Mouth, Daily, Refills 0, Maintenance, 01/21/23 16:11:00 EDT, Partial fill uponpatient request if the prescription is for a schedule II opioid drug. Start Date: 01/21/23 Status: Ordered Coreg 6.25 mg oral tablet 6.25 mg, 1, tablet, By Mouth, 2 times a day, Hold if systolic blood pressure is below 120 mmHg and/or heart rate is below 55 [id number], # 180 tablet, Refills 0, Tot. Refills 0, Maintenance, 02/07/23 12:29:00 EDT, Route to Pharmacy Electronically... Start Date: 02/07/23 Status: Ordered Farxiga 10 mg oral tablet 1 tablet = 10 mg, By Mouth, Daily, # 90 tablet, 0 Refills, Maintenance, 02/07/23 12:33:00 EDT, Tablet, [facility] #[id number], Partial fill upon patient request if the prescription is for a schedule II opioid drug., 175, cm, 02/07/23 12:05:00 EDT... Start Date: 02/07/23 Status: Ordered ferrous sulfate 325 mg oral enteric coated tablet 325 mg, 1, tablet, By Mouth, Daily, # 90 tablet, Refills 0, Tot. Refills 0, Maintenance, 02/07/23 12:36:00 EDT, Route to Pharmacy Electronically, [facility] #[id number], Partial fill upon patient request if the prescription is for a schedule II o... Start Date: 02/07/23 Status: Ordered finasteride 5 mg oral tablet 1 tablet = 5 mg, By Mouth, Daily, # 90 tablet, 0 Refills, Maintenance, 02/07/23 12:28:00 EDT, Tablet, [facility] #[id number], Partial fill upon patient request if the prescription is for a schedule II opioid drug., 175, cm, 02/07/23 12:05:00 EDT,... Start Date: 02/07/23 Status: Ordered gabapentin 400 mg oral capsule 400 mg, 1, capsule, By Mouth, 3 times a day, Refills 0, Maintenance, 06/08/22 13:24:00 EDT, Partialfill upon patient request if the prescription is for a schedule II opioid drug. Start Date: 06/08/22 Status: Ordered lactulose 10 gm/15 ml oral syrup See Instructions, PRN Other, Take 15 mL as needed for constipation, please maintain daily bowel movement, hold for excessive loose stool or diarrhea (more than 3 times a day)., # 480 mL, 0 Refills, Maintenance, 02/07/23 12:36:00 EDT, Syrup, [facility]... Start Date: 02/07/23 Status: Ordered Lasix 40 mg oral tablet 40 mg, 1, tablet, By Mouth, Daily, For ascites. Hold if systolic blood pressure is below 120 mmHg.,# 90 tablet, Refills 0, Tot. Refills 0, Maintenance, 02/07/23 12:31:00 EDT, Route to Pharmacy Electronically, [facility] #[id number], Partial fill... Start Date: 02/07/23 Status: Ordered lidocaine 5% topical film 1 patch, Topically, Daily, Apply to back of the neck tender point, 12 hours on then 12 hours off., # 30 patch, 0 Refills, Maintenance, 02/07/23 12:30:00 EDT, Patch, [facility] #[id number], Partial fill upon patient request if the prescription is... Start Date: 02/07/23 Status: Ordered Lipitor 80 mg oral tablet 1 tablet = 80 mg, By Mouth, Daily, # 90 tablet, 0 Refills, Maintenance, 02/07/23 12:28:00 EDT, Tablet, [facility] #[id number], 175, cm, 02/07/23 12:05:00 EDT, Height, 94, kg, 01/23/23 9:15:00 EDT, Dry Weight Start Date: 02/07/23 Status: Ordered midodrine 10 mg oral tablet 1 tablet = 10 mg, By Mouth, 3 times a day, To help maintain systolic blood pressure above 110-120 mmHg, # 90 tablet, 2 Refills, Maintenance, 02/07/23 12:33:00 EDT, Tablet, [facility] #[id number], Partial fill upon patient request if the prescript... Start Date: 02/07/23 Status: Ordered midodrine 5 mg oral tablet 10 mg, Tablet, By Mouth, Keep MAP>81 mmHg do not hold if normotensive, 02/07/23 15:00:00 EDT Start Date: 02/07/23 Stop Date: 02/07/23 Status: Completed Narcan 4 mg/0.1 mL nasal spray = 4 mg, Nares, Both, Once, PRN Other, To reverse opioid overdose, administer to each nostril, may repeat every 2 to 3 minutes until patient responds, call 911 in the meantime., # 2 each, 0 Refills, Soft Stop, 02/07/23 12:41:00 EDT, [facility]... Start Date: 02/07/23 Status: Ordered NovoLOG FlexTouch See Instructions, 2-25 units Subcutaneous Injection 3 times a day before meals and bedtime, 0 Refills, Maintenance, 02/10/19 11:14:18 EDT Start Date: 02/10/19 Status: Ordered pantoprazole 40 mg oral delayed release tablet 1 tablet = 40 mg, By Mouth, Daily, # 90 tablet, 0 Refills, Maintenance, 02/07/23 12:31:00 EDT, EC Tablet, 175, cm, 02/07/23 12:05:00 EDT, Height, 94, kg, 01/23/23 9:15:00 EDT, Dry Weight Start Date: 02/07/23 Status: Ordered tamsulosin 0.4 mg oral capsule 0.4 mg, 1, capsule, By Mouth, Daily, (LAST FILLED 10/01/22), # 90 capsule, Refills 0, Tot. Refills 0, Maintenance, 02/07/23 12:29:00 EDT, Route to Pharmacy Electronically, [facility] #[id number],Partial fill upon patient request if the prescripti... Start Date: 02/07/23 Status: Ordered traMADol 50 mg oral tablet 0.5 tablet = 25 mg, By Mouth, Every 6 hours, PRN Pain , Severe, for 7 days, not to exceed 100 mg/day; do not administer if you are feeling weak, dizziness, sleepy, or in acute distress, # 12 tablet, 0 Refills, Acute 02/14/23 12:39:00 EDT, 02/07/23 12:... Start Date: 02/07/23 Stop Date: 02/14/23 Status: Ordered Tresiba FlexTouch = 10 units, Subcutaneous Injection, Daily at bedtime, 0 Refills, Maintenance, 02/10/19 11:11:53 EDT Start Date: 02/10/19 Status: Ordered Trulicity Pen 0.75 mg/0.5 mL subcutaneous solution 0.5 mL = 0.75 mg, Subcutaneous Injection, Every week, EVERY THURSDAY, 0 Refills, Maintenance, 02/10/19 11:13:09 EDT, Solution Start Date: 02/10/19 Status: Ordered Zetia 10 mg oral tablet 1 tablet = 10 mg, By Mouth, Daily, # 90 tablet, 0 Refills, Maintenance, 02/07/23 12:33:00 EDT, Tablet, [facility] #[id number], Partial fill upon patient request if the prescription is for a schedule II opioid drug., 175, cm, 02/07/23 12:05:00 EDT... Start Date: 02/07/23 Status: Ordered Problem List Condition Confirmation Course Effective Dates Status Health Status Informant CHF (congestive heart failure) Confirmed 2005 Active CAD (coronary artery disease), LAD Confirmed 08/01/13 Active Diabetes mellitus type 2, insulin Confirmed Active Essential hypertension Confirmed Active Hyperlipidemia Confirmed Active Iron deficiency anemia Confirmed Active Prostate cancer 1 Confirmed 2011 Active Neuropathy Confirmed Active Obese class I Confirmed Active ANUJA on CPAP Confirmed Active Old myocardial infarction, NSTEMI, s/p ZORA Confirmed 07/30/13 Active Pericardial effusion, s/p pericardiocentesis Confirmed 2005 Active Pulmonary HTN Confirmed Active 1Trelestar with 2 doses in September 2012 and again in February 2013. Urologist is Dr. Zafar Ro[facility] ). Diagnosis Diagnosis Type Effective Dates Health Status Cl inical Service Informant Troponin level elevated Discharge Diagnosis 01/22/23 Coronary artery disease Discharge Diagnosis 01/22/23 S/P TAVR (transcatheter aortic valve replacement) Discharge Diagnosis 01/22/23 Pacemaker Discharge Diagnosis 01/22/23 Results Orders for Microbiology Reports Name Date Anaerobic Culture (ANAEROBIC CULTURE) Sterile Body Fluid Culture W/ Gram Smear 01/26/23 Blood Culture 01/26/23 Blood Culture #2 01/26/23 Blood Culture 01/24/23 Blood Culture #2 01/24/23 Microbiology Reports TEST:Anaerobic Culture STATUS:Auth (Verified) BODY SITE: SOURCE:PARACE COLLECTED DATE/TIME:01/26/23 9:30 AM Anaerobic Culture SPECIMEN DESCRIPTION : PARACENTESIS FLUID SPECIAL REQUESTS : NONE CULTURE : NO ANAEROBES ISOLATED REPORT STATUS : FINAL 01/31/2023 TEST:Sterile Fluid Culture STATUS:Auth (Verified) BODY SITE: SOURCE:PARACE COLLECTED DATE/TIME:01/26/23 9:23 AM Sterile Fluid Culture SPECIMEN DESCRIPTION : PARACENTESIS FLUID SPECIAL REQUESTS : NONE GRAM STAIN : 2+ POLYMORPHONUCLEAR LEUKOCYTES 2+ TISSUE CELLS NO ORGANISMS SEEN CULTURE : NO GROWTH 2 DAYS REPORT STATUS : FINAL 01/28/2023 TEST:Blood Culture STATUS:Auth (Verified) BODY SITE: SOURCE:Blood COLLECTED DATE/TIME:01/26/23 6:46 AM Blood Culture SPECIMEN DESCRIPTION : BLOOD RA SPECIAL REQUESTS : NONE CULTURE : NO GROWTH 5 DAYS. REPORT STATUS : FINAL 01/31/2023 TEST:Blood Culture, Second Order STATUS:Auth (Verified) BODY SITE: SOURCE:Blood COLLECTED DATE/TIME:01/26/23 6:46 AM Blood Culture, Second Order SPECIMEN DESCRIPTION : BLOOD LA SPECIAL REQUESTS : NONE CULTURE : NO GROWTH 5 DAYS. REPORT STATUS : FINAL 01/31/2023 TEST:Blood Culture STATUS:Auth (Verified) BODY SITE: SOURCE:Blood COLLECTED DATE/TIME:01/24/23 11:35 AM Blood Culture SPECIMEN DESCRIPTION : BLOOD L ARM SPECIAL REQUESTS : CRITICAL VALUE CALLED AND VERIFIED BY READBACK FOR: GRAM POSITIVE COCCI TO [id number],M6,01/25 AT 0750 BY TECH 155 CULTURE : STREPTOCOCCUS PARASANGUINIS This isolate was identified using Maldi-TOF system REPORT STATUS : FINAL 01/27/2023 ORGANISM STREPTOCOCCUS PARASANGUINIS This isolate was identified using Maldi-TOF system METHOD MIN. INHIB. CONC. (MCG/ML) PENICILLIN SUSCEPTIBLE TEST:Blood Culture, Second Order STATUS:Auth (Verified) BODY SITE: SOURCE:Blood COLLECTED DATE/TIME:01/24/23 11:35 AM Blood Culture, Second Order SPECIMEN DESCRIPTION : BLOOD NO SITE SPECIAL REQUESTS : NONE CULTURE : STREPTOCOCCUS PARASANGUINIS This isolate was identified using Maldi-TOF system FOR SUSCEPTIBILITY RESULT REFER TO BLOOD CULTURE Streptococcus species was identified by multiplex PCR. REPORT STATUS : FINAL 01/27/2023 Radiology Reports (Most Recent Ten) * Exam Date Time Procedure Performing Provider Status 02/05/23 4:[address] Abdomen and Pelvi s W/O Contrast Tonya Baird; Auth (Verified) Notes: (CT Abdomen and Pelvis W/O Contrast) Reason For Exam: Hematuria with L groin pain r/o ureteral stone;Hematuria RESULT: CT Abdomen and Pelvis W/O Contrast CT Abdomen and Pelvis W/O Contrast Reason: Hematuria; Hematuria with L groin pain r o ureteral stone; Clinical Question(s): Calculus; Order Comment: TECHNIQUE: Spiral CT through the abdomen and pelvis without IV contrast formatted in 3 planes. Thisstudy was performed without oral contrast. Weight- based protocol using automatic tube modulation was used to optimize exposure parameters. CTDIvol Body: 22.17 mGy, DLP Body: 1152 mGy*cm. COMPARISON: None. FINDINGS: Commercial Floor Covering Installer View Findings, Lines and Tubes: Partially imaged leads from a cardiac pacing device. Visualized Chest: Partially imaged small left and [id number]-qu-[id number] right pleural effusions with overlying atelectasis. The lung bases are blurred by respiratory motion Diaphragm: Normal. Liver: Cirrhotic morphology with nodular contour. Gallbladder: Cholelithiasis. Bile ducts: No biliary ductal dilation. Spleen: Splenomegaly, measuring approximately 19 cm. There is a focal area of hypodensity in the superomedial spleen which is intermediate attenuation, and not fully characterized.. Pancreas: Normal. Adrenal glands: Normal. Kidneys and ureters: No hydronephrosis, stones, or noncontrast evidence of suspicious masses. Bladder: Decompressed around a Meier catheter. The luminal contents appear hyperdense. Reproductive organs: Metallic markers along the location of the prostate. Stomach, small bowel, and large bowel: No obstruction. Appendix: Not seen, but no evidence of appendicitis. Peritoneum and retroperitoneum: Small moderate ascites. No omental or mesenteric lesions. Lymph nodes: No enlarged lymph nodes. Blood vessels: Severe atherosclerotic vascular calcification but no aneurysm. Recanalized umbilicalvein. Abdominal and pelvic wall: Unremarkable. Bones: No acute abnormality. Surgical hardware between the L4 and L5 spinous processes. Degenerative changes of the spine. IMPRESSION: Dense material in the bladder, which likely reflects blood clot in setting of hematuria. The bladder is not assessed well due to the decompression around a Meier catheter. Follow-up recommended, and further assessment for etiology of hematuria as indicated clinically. No renal or bladder stones are demonstrated. Cirrhosis with findings of portal hypertension including recanalized helical pain and splenomegaly.Small to moderate ascites. Cholelithiasis. Bilateral pleural effusions, partially imaged. Focal area of hypoattenuation in the spleen is nonspecific and not fully characterized. WSN: [id number] Ordering Physician: Susu Holguin Dictated By: Anh Martinez MD Dictated Date/Time: 02/05/23 4:52 pm Reviewed By: Anh Martinez MD Signed By: Anh Martinez MD Signed Date/Time: 02/05/23 4:52 pm Transcribed By: CARLOS Transcribed Date/Time: 02/05/23 4:45 pm * Exam Date Time Procedure Performing Provider Status 02/04/23 6:50 PM Chest Portable Shannan Johnson; Auth (Verified) Notes: (Chest Portable) Reason For Exam: Line Placement RESULT: Chest Portable Chest Portable INDICATION: Reason: Line Placement; Clinical Question(s): Line Placement; Special Instructions: interim over the wire exchange to correct malposition in right IJ COMPARISON: 02/04/2023 FINDINGS: LINES AND TUBES: A left-sided Port-A-Cath is noted with 2 leads overlying the heart. A right- sided peripherally inserted central catheter is now seen terminating in the distal SVC, which is now in adequate position and when compared to prior radiograph of 02/04/2023 at 3:38 PM. LUNGS AND PLEURA: There is increased opacity in the bases, similar to prior examination. There is blunting of the left costophrenic angle and to a lesser extent the right costophrenic angle, slightly more prominent since prior examination. There is no appreciable pneumothorax. HEART, MEDIASTINUM AND KAYE: Cardiac silhouette remains enlarged. A TAVR is again seen. Mediastinal contours are unchanged. BONES AND SOFT TISSUES: No acute abnormality. IMPRESSION: Right-sided peripherally inserted central catheter terminating in the distal SVC, in adequate position. Bibasilar airspace disease with small pleural effusions. Clinical correlation and follow-up to baseline is advised. WSN: [id number] Ordering Physician: Susu Holguin Dictated By: Alina Arango MD Dictated Date/Time: 02/04/23 7:00 pm Reviewed By: Alina Arango MD Signed By: Alina Arango MD Signed Date/Time: 02/04/23 7:00 pm Transcribed By: CARLOS Transcribed Date/Time: 02/04/23 6:58 pm * Exam Date Time Procedure Performing Provider Status 02/04/23 3:53 PM Chest Portable Loc Walters (Verified) Notes: (Chest Portable) Reason For Exam: Line Placement RESULT: Chest Portable Chest Portable Reason: Line Placement; Clinical Question(s): Line Placement; Special Instructions: RUE PICC placement COMPARISON: None. FINDINGS: LINES AND TUBES: The right upper extremity PICC line with the tip directed superiorly into the internal jugular veinand not included in the [id number]. Dual-lead left subclavian pacer wires are intact. LUNGS AND PLEURA: Slightly increased nonspecific interstitial haziness of the right lung base. No definite focal consolidation. No pleural effusion. No pneumothorax. HEART, MEDIASTINUM AND KAYE: Heart is normal in size. Status post TAVR. Normal mediastinal and hilar contour. BONES AND SOFT TISSUES: No acute abnormality. IMPRESSION: New right upper extremity PICC line with the tip directed toward the right internal jugular vein and not included in the [id number]. Mildly increased interstitial markings in the right lower lung. No focal consolidation. Results were relayed by [employer] by Dr. Yancey to Sidneycandice Roxie on 02/04/2023 4:07 PM. I have personally reviewed the images and I agree with this report. WSN: [id number] Ordering Physician: Susu Holguin Dictated By: Te Yancey MD Dictated Date/Time: 02/04/23 4:18 pm Reviewed By: Kuldeep Zelaya MD, V Signed By: Kuldeep Zelaya MD, V Signed Date/Time: 02/04/23 4:23 pm Transcribed By: CARLOS Transcribed Date/Time: 02/04/23 4:09 pm * Exam Date Time Procedure Performing Provider Status 02/03/23 2:[address] 2/+ days O'Erasmo , Stacia eccfrancesca; Auth (Verified) Notes: (NM SPECT CT CT 2/+ days) Reason For Exam: Other: RESULT: NM SPECT CT CT 2/+ days NM Inflam Loc Whole Body 2/+ Days, NM SPECT CT CT 2/+ days - NM WBC Scan REASON: Concern for endocarditis needs WBC NM scan TECHNIQUE: Following the intravenous administration of 0.620 millicuries of Indium-111 labeled autologous white blood cells, whole body planar images were obtained after 24 hours. Then SPECT coupled with CT imaging of the chest was performed. COMPARISON: CT TAVR Angio Chest and Abd/pelvis 02/05/22. Correlation also made with MRI cervical spine 01/27/2020. FINDINGS: There is no increased uptake of labeled white blood cells throughout the imaged portion of the body. Physiologic activity is noted in the liver, spleen, and skeleton. Other findings: * Dual-lead left subclavian pacer. * Moderate right pleural effusion and small left pleural effusion. * Nodular liver contour. * Small volume of perihepatic and perisplenic ascites. * Enlarged spleen measuring up to 16.6 cm. * Mild cardiomegaly. IMPRESSION: 1. There is no scintigraphic evidence of inflammation or infection. Please note, white cell scans are insensitive for spinal osteomyelitis/discitis. 2. Moderate right and small left pleural effusions. 3. Small volume ascites. I have personally reviewed the images and I agree with this report. WSN: [id number] Ordering Physician: Garrick Seymour Dictated By: Justina Jaffe DO Dictated Date/Time: 02/03/23 4:35 pm Reviewed By: Mati García MD Signed By: Mati García MD Signed Date/Time: 02/03/23 4:40 pm Transcribed By: CARLOS Transcribed Date/Time: 02/03/23 3:19 pm * Exam Date Time Procedure Performing Provider Status 02/03/23 2:00 PM NM Inflam Loc Whole Body 2/+ Days O'Co nnor , Pippa; Auth (Verified) Notes: (NM Inflam Loc Whole Body 2/+ Days) Reason For Exam: endocarditis needs WBC NM scan RESULT: NM Inflam Loc Whole Body 2/+ Days NM Inflam Loc Whole Body 2/+ Days, NM SPECT CT CT 2/+ days - NM WBC Scan REASON: Concern for endocarditis needs WBC NM scan TECHNIQUE: Following the intravenous administration of 0.620 millicuries of Indium-111 labeled autologous white blood cells, whole body planar images were obtained after 24 hours. Then SPECT coupled with CT imaging of the chest was performed. COMPARISON: CT TAVR Angio Chest and Abd/pelvis 02/05/22. Correlation also made with MRI cervical spine 01/27/2020. FINDINGS: There is no increased uptake of labeled white blood cells throughout the imaged portion of the body. Physiologic activity is noted in the liver, spleen, and skeleton. Other findings: * Dual-lead left subclavian pacer. * Moderate right pleural effusion and small left pleural effusion. * Nodular liver contour. * Small volume of perihepatic and perisplenic ascites. * Enlarged spleen measuring up to 16.6 cm. * Mild cardiomegaly. IMPRESSION: 1. There is no scintigraphic evidence of inflammation or infection. Please note, white cell scans are insensitive for spinal osteomyelitis/discitis. 2. Moderate right and small left pleural effusions. 3. Small volume ascites. I have personally reviewed the images and I agree with this report. WSN: [id number] Ordering Physician: Garrick Seymour Dictated By: Justina Jaffe DO Dictated Date/Time: 02/03/23 4:35 pm Reviewed By: Mati García MD Signed By: Mati García MD Signed Date/Time: 02/03/23 4:40 pm Transcribed By: CARLOS Transcribed Date/Time: 02/03/23 3:19 pm * Exam Date Time Procedure Performing Provider Status 01/26/23 10:08 AM US Retroperitoneum Comp Valentin Velasquez; Modified Notes: (US Retroperitoneum Comp) Reason For Exam: EMMANUEL, bladder and kidney scan;Renal Failure RESULT: US Retroperitoneum Comp US Retroperitoneum Comp Reason: Renal Failure; EMMANUEL, bladder and kidney scan; Clinical Question(s): Renal Obstruction COMPARISON: CTA 02/05/2022. FINDINGS: Right kidney: 12.3 cm in length. No hydronephrosis. Normal parenchymal echotexture with cortical thinning. No stones. No suspicious mass. Left kidney: 11.6 cm in length. No hydronephrosis. Normal parenchymal echotexture with cortical thinning. No stones. No suspicious mass. Urinary bladder: Urinary bladder is distended with dilation of the distal ureters bilaterally measuring 0.6-0.7 cm. Urinary bladder otherwise unremarkable. No stone or mass. Incidentally seen splenomegaly measuring 20 cm, previously measured 18 cm on 02/05/2022. Partially depressed imaged liver demonstrates an ill-defined heterogeneously hypoechoic lesion within the posterior right lobe measuring 3.1 cm, possibly cystic on transverse imaging. No definite correlate on prior CT angiogram, although comparison is limited due to phase of contrast enhancement. IMPRESSION: No hydronephrosis or obstructing stone. Bilateral renal cortical thinning. Urinary bladder is well-distended with dilation of the proximal distal ureters. Partially-imaged 3.1 cm posterior right hepatic hypoechoic lesion, possibly cystic but incompletelycharacterized. Given cirrhotic morphology of liver on comparison CT angiogram, dedicated liver ultrasound or MRI with contrast suggested for further characterization. Splenomegaly measuring up to 20 cm, slightly increased from prior. An actionable message (Yellow) has been communicated via the [employer] system on 01/26/2023 10:53 AM, Message ID [id number]. I have personally reviewed the images and I agree with this report. WSN: [id number] Ordering Physician: Susu Holguin Dictated By: Doug Nolan DO Dictated Date/Time: 01/26/23 10:53 a Reviewed By: David Weldon MD Signed By: David Weldon MD Signed Date/Time: 01/26/23 10:58 am Transcribed By: CARLOS Transcribed Date/Time: 01/26/23 10:31 am ADDENDUM: US Retroperitoneum Comp Clarification: The indeterminate 3.1 cm possibly hypoechoic cystic lesion is located within the spleen as opposed to the posterior right hepatic lobe. Therefore, there is no indication for additionalimaging of the liver, but ultrasound of the spleen could be considered for further evaluation. WSN: [id number] Ordering Physician: Susu Holguin Dictated By: David Weldon MD Dictated Date/Time: 01/27/23 9:55 am Reviewed By: David Weldon MD Signed By: David Weldon MD Signed Date/Time: 01/27/23 9:55 am Transcribed By: CARLOS Transcribed Date/Time: 01/27/23 9:53 am * Exam Date Time Procedure Performing Provider Status 01/26/23 3:54 PM MRI Cervical Spine W+W/O Contrast Hal Reynoso (Verified) Notes: (MRI Cervical Spine W+W/O Contrast) Reason For Exam: Fever RESULT: MRI Cervical Spine W+W/O Contrast MRI Cervical Spine W+W/O Contrast INDICATION: Reason: Fever; Clinical Question(s): Disc Space Infection; Special Instructions: Pacemaker compatible with MRI per cardiology; Order Comment: Please see Reference Text for complete list of contraindications Disc Space Infection TECHNIQUE: MRI of the cervical spine was performed with and without intravenous contrast utilizing sagittal T1, sagittal T2, sagittal STIR, axial T1, and fat- saturated axial T2-weighted sequences, and post-contrast sagittal T1 and fat- saturated axial T1-weighted sequences. 19 mL of Clariscan was administered intravenously. COMPARISON: CT 01/25/2023 FINDINGS: T1 hypointensity, STIR hyperintensity and enhancement is present in the inferior C5 and superior U4wwdokemcj bodies. The endplates are poorly defined. STIR hyperintensity is present in the intervertebral disc and extends anteriorly and posteriorly. Nonenhancing material within the anterior disc space and extending into the prevertebral soft tissues is consistent with fluid. Abnormal signal intensity is noted posterior to the C5 and C6 vertebral bodies and much of this enhances consistent with epidural phlegmon measuring 4.5 mm in thickness. Nonenhancing tissue seen posterior to the C5-C6 disc space is not T2 hyperintense and this may represent a superimposed disc herniation rather than a 5mm abscess. Nonenhancing soft tissue is seen posterior to the C6-7 disc space but the appearance onthe axial images suggest a moderate sized central disc herniation rather than abscess. There is enhancement in the anterior epidural space extending inferior to this herniation which could represent phlegmon or prominence of the epidural venous plexus related to the mass effect. Moderate central stenosis is produced at the C5-6 and C6-7 levels. There is T2 hyperintensity within the spinal cord atthe C5-6 level, predominantly involving the lateral margins of the cord. The spinal cord measures approximately 4 mm in AP diameter at the level of the superior endplate of C6. It measures approximate ly 4.2 mm in diameter at the level of the C6-7 disc space. The stenosis is accentuated by infoldingof the ligamentum flavum at C6-7, just superior to the disc space level. There appears to be enhancement and edema within the expanded longus coli muscle bilaterally at the C5 and C5 and C6 levels. Asmall amount of prevertebral fluid is seen anteriorly in the midline measuring approximately 3 mm in anteroposterior thickness. Inflammation extends posterolaterally from of the disc space at C5-6 encroaching on either C6 neural foramen. The C6/7 foramina are normal. Small central disc herniations at C3-4 and C4-5 do not appear to be significant. No paravertebral mass is noted aside from the inflammatory disease. IMPRESSION: 1. C5-6 discitis and osteomyelitis with extension of fluid into the prevertebral soft tissues from the disc space and a separate small prevertebral fluid collection. Anterior epidural phlegmon spans the C5 and C6 vertebral bodies and measures up to 4 mm in thickness. A 5 mm structure posterior to the C5-6 disc space more likely represents a small disc herniation than a small epidural abscess. Moderate central stenosis is produced with the spinal cord compression and spinal cord signal abnormality which could reflect edema or ischemia. 2. 6 mm nonenhancing soft tissue structure extending posteriorly from the C6-7 disc margin more consistent with a disc herniation than phlegmon or abscess. This also produces mild cord compression without associated spinal cord signal abnormality. Findings communicated via cortext with Dr. Holguin at 1616 hours on 01/26/2023, with receipt confirmed. WSN: [id number] Ordering Physician: Susu Holguin Dictated By: Td Beyer MD Dictated Date/Time: 01/26/23 4:17 pm Reviewed By: Td Beyer MD Signed By: Td Beyer MD Signed Date/Time: 01/26/23 4:17 pm Transcribed By: CARLOS Transcribed Date/Time: 01/26/23 3:59 pm * Exam Date Time Procedure Performing Provider Status 01/26/23 9:10 AM IR End of Case Report Mod ified IR End of Case Report * Exam Date Time Procedure Performing Provider Status 01/26/23 9:40 AM US Guide Abdomen Par acentesis w/Imaging Nathanael Mishra; Auth (Verified) Notes: (US Guide Abdomen Paracentesis w/Imaging) Reason For Exam: Ascites, decompensated liver cirrhosis US Guide Abdomen Paracentesis w/Imaging Patient: GILLES WRIGHT Study Date: 01/26/2023 Performing: Laura Garcia PA-C Referring: : 1945 Age: 77 Gender: MALE PROCEDURE: US Guided Paracentesis INDICATION: Ascites, abdominal distension, request samples for testing. CONSULTING SERVICES PROJECT MANAGER(S): Laura Garcia PA-C ANESTHESIA: 1% lidocaine was administered for local anesthesia TECHNIQUE: A limited ultrasound examination of the abdomen was performed. Informed consent was obtained. A suitable access site in the right upper abdominal wall was identified, marked, prepped and draped in standard sterile fashion. 1% lidocaine was administered for local anesthesia. A 5 Tajik catheter was advanced into the peritoneal cavity. A post paracentesis scan was obtained. The catheter was removed and hemostasis obtained using manual compression. COMPLICATIONS: The patient tolerated the procedure well and left the department in stable condition. There were no immediate complications. FINDINGS: There is a moderate amount of abdominal ascites. An ultrasound guided paracentesis was successfully performed as described above. The post paracentesis scan demonstrates no significant residual abdominal ascites. PLAN: Routine post procedure monitoring. IMPRESSION: Successful ultrasound guided paracentesis with evacuation of 2850 ml of clear yellow/serous ascites. Signed By Laura Garcia PA-C On 01/26/2023 10:25:44 Signed By Laura Garcia PA-C On 01/26/2023 10:25:44 Laura Garcia PA-C Equipment : Zachery GARCÍA 19 X 10 Dictated By: Laura Phillips Dictated Date/Time: 01/26/23 9:10 am Reviewed By: Laura Phillips Signed By: Laura Phillips Signed Date/Time: 01/26/23 9:40 am Transcribed By: CASSIE Transcribed Date/Time: 01/26/23 9:40 am * Exam Date Time Procedure Performing Provider Status 01/25/23 3:[address] Cervical Spine W/O Contrast Natalio Britton; Auth (Verified) Notes: (CT Cervical Spine W/O Contrast) Reason For Exam: Bacteremia, known cervical radiculopathy, spinal tenderness, unable to do contrast scan or MRI, evaluate osseous abnormalities;Back Pain RESULT: CT Cervical Spine W/O Contrast CT Cervical Spine W/O Contrast Reason: Back Pain; Bacteremia, known cervical radiculopathy, spinal tenderness, unable to do contrast scan or MRI, evaluate osseous abnormalities; Clinical Question(s): Fracture Dislocation; Order Comment: TECHNIQUE: Spiral CT of the cervical spine without contrast, formatted in 3 planes. Weight-based protocol using automatic tube modulation was used to optimize exposure parameters. RADIATION DOSE PARAMETERS: CTDIvol Body: 26.58 mGy, DLP Body: 719 mGy*cm. COMPARISON: None. FINDINGS: There is mild prevertebral fluid centered at C5-C6. At C5-C6 there is cortical irregularity and destruction of the inferior endplate of C5 and the superior endplate of C6, most advanced along the anterior aspect of the vertebral bodies. There is associated diminished disc height and irregularity ofthe disc. There is straightening and reversal of the normal curvature which is centered at C5-C6. Posterior cortical destruction/irregularity at C5-C6 indents upon the thecal sac and causes moderate canal stenosis. Disc heights are preserved at the other levels. There are mild multilevel degenerative facet arthritic changes and mild marginal endplate spurring at multiple levels. There are cervical carotid arterial calcifications. The included thyroid gland is normal. Included lung apices demonstrate breathing motion artifact. IMPRESSION: C5-C6 cortical destruction, significantly diminished disc height and prevertebral fluid at this level highly suspicious for discitis osteomyelitis. Findings discussed over the phone with nurse caring for the patient on MM6 01/25/2023 6:35 PM. Cortext message was also sent with findings to Faviola TAPIA 01/25/2023 6:57 PM. WSN: [id number] Ordering Physician: Susu Holguin Dictated By: Jennifer Gonzalez MD Dictated Date/Time: 01/25/23 7:00 pm Reviewed By: Jennifer Gonzalez MD Signed By: Jennifer Gonzalez MD Signed Date/Time: 01/25/23 7:00 pm Transcribed By: CRALOS Transcribed Date/Time: 01/25/23 6:37 pm Vital Signs Most recent to oldest [Reference Range]: 1 2 3 Height 175 cm (02/07/23 12:05 PM) 175 cm (02/07/23 8:15 AM) 175 cm (02/07/23 4:19 AM) Weight 94 kg (01/23/23 9:15 AM) 94 kg (01/23/23 2:27 AM) 94 kg (01/23/23 1:09 AM) Oxygen Saturation [94-100 %] 96 % (02/07/23 12:05 PM) 98 % (02/07/23 8:15 AM) 97 % (02/07/23 4:19 AM) Pulse Rate [55-90 bpm] 62 bpm (02/07/23 4:36 PM) 62 bpm (02/07/23 12:05 PM) 62 bpm (02/07/23 8:15 AM) Body Mass Index [18.5-24.99 kg/m2] 30.69 kg/m2 *>HHI* (01/23/23 9:15 AM) Blood Pressure [90-138/55-84 mm Hg] 114/49mm Hg (02/07/23 4:36 PM) 106/42mm Hg (02/07/23 12:05 PM) 117/50mm Hg (02/07/23 8:15 AM) Respiratory Rate [16-30 br/min] 18 br/min (02/07/23 12:05 PM) 18 br/min (02/07/23 8:15 AM) 16 br/min (02/07/23 4:19 AM) Temperature [96.8-100.4 DegF] 98 DegF (02/07/23 12:05 PM) 98.2 DegF (02/07/23 8:15 AM) 97.8 DegF (02/07/23 4:19 AM) Liters per Minute 3 L/min (02/07/23 4:19 AM) 3 L/min (02/07/23 12:33 AM) 2 L/min (02/01/23 12:15 PM) Mode of Delivery (Oxygen) Room air (02/07/23 12:05 PM) BiPAP (02/07/23 8:15 AM) CPAP (02/07/23 4:19 AM) Blood pressure sites Arm, left (02/07/23 12:05 PM) Arm, left (02/07/23 8:15 AM) Arm, left (02/07/23 4:19 AM) Temperature Route Oral (02/07/23 12:05 PM) Oral (02/07/23 8:15 AM) Oral (02/07/23 4:19 AM) Dry Weight 94 kg (01/23/23 9:15 AM) 94 kg (01/23/23 2:27 AM) 94 kg (01/23/23 1:09 AM) Social History Social History Type Response Smoking Status Never (less than 100 in lifetime) entered on: 06/02/22 Sex Note * Ewa Dsouza RN: PERFORM Event Display: Discharge/Transfer Note Hospital Authored Date: [id number] Nursing Discharge Note Entered On: 02/07/2023 17:27 EDT Performed On: 02/07/2023 17:00 EDT by Ewa Dsouza RN Nursing Discharge Note 2 Discharge Time : 02/07/2023 17:00 EDT Discharge Level of Care at Discharge : Homehealth/VNA Discharge VNA/Hospice/Home Care(v001) : [facility] [place] Discharge Medical Equip Companies(v001) : [facility] [phone] Patient Left Unit Via : Wheelchair Patient Accompanied Off Unit with : Responsible adult DC Instructions Provided & Signed by Pt : Yes Patient Understands D/C Instructions : Yes Verbalized Understanding of D/C Plan By : Family, Patient Patient Instructions Discharge Signed : Yes Did Pt have Specialty Bed or Wound Vac : No Ewa Dsouza RN - 02/07/2023 17:26 EDT * Susu Holguin MD: PERFORM, MODIFY, MODIFY Event Display: Discharge/Transfer Note Hospital Authored Date: [id number] Patient: ??GILLES WRIGHT ? Age:??77 Years?Sex:??Male?:??1945?? 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 _ Discharge Medications Aspirin (aspirin 81 mg oral delayed release tablet)?81?Milligram?1?tablet?By Mouth?Daily?Do not start aspirin until 06/16/2022 Atorvastatin (Lipitor 80 mg oral tablet)?1?tab(s)?80?Milligram?By Mouth?Daily Bethanechol (bethanechol 25 mg oral tablet)?25?Milligram?1?tablet?By Mouth?2 times a day Carvedilol (Coreg 6.25 mg oral tablet)?6.25?Milligram?1?tablet?By Mouth?2 times aday?Hold if systolic blood pressure is below 120 mmHg and/or heart rate is below 55 [id number] Clopidogrel (clopidogrel 75 mg oral tablet)?75?Milligram?1?tablet?By Mouth?Daily dapagliflozin (Farxiga 10 mg oral tablet)?1?tab(s)?10?Milligram?By Mouth?Daily dulaglutide (Trulicity Pen 0.75 mg/0.5 mL subcutaneous solution)?0.5?Milliliter?0.75?Milligram?Subcutaneous Injection?Every week?EVERY THURSDAY Ezetimibe (Zetia 10 mg oral tablet)?1?tab(s)?10?Milligram?By Mouth?Daily Ferrous Sulfate (ferrous sulfate 325 mg oral enteric coated tablet)?325?Milligram?1?tablet?By Mouth?Daily Finasteride (finasteride 5 mg oral tablet)?1?tab(s)?5?Milligram?By Mouth?Daily Furosemide (Lasix 40 mg oral tablet)?40?Milligram?1?tablet?By Mouth?Daily?For ascites. Hold if systolic blood pressure is below 120 mmHg. Gabapentin (gabapentin 400 mg oral capsule)?400?Milligram?1?capsule?By Mouth?3 times a day Insulin Aspart (NovoLOG FlexTouch)?See Instructions?2-25 units Subcutaneous Injection 3 timesa day before meals and bedtime insulin degludec (Tresiba FlexTouch)?10?unit(s)?Subcutaneous Injection?Daily at bedtime Lactulose (lactulose 10 gm/15 ml oral syrup)?See Instructions?as needed?Other?Take 15 mL as needed for constipation, please maintain daily bowel movement, hold for excessive loose stool or diarrhea (more than 3 times a day). Lidocaine Topical (lidocaine 5% topical film)?1 patch?Topically?Daily?Apply to back of the neck tender point, 12 hours on then 12 hours off. Midodrine (midodrine 10 mg oral tablet)?1?tab(s)?10?Milligram?By Mouth?3 times a day?To help maintain systolic blood pressure above 110-120 mmHg nalOXONE (Narcan 4 mg/0.1 mL nasal spray)?4?Milligram?Nares, Both?Once?as needed?Other?To reverse opioid overdose, administer to each nostril, may repeat every 2 to 3 minutes until patient responds, call 911 in the meantime. Pantoprazole (pantoprazole 40 mg oral delayed release tablet)?1?tab(s)?40?Milligram?By Mouth?Daily Spironolactone (Aldactone 100 mg oral tablet)?100?Milligram?1?tablet?By Mouth?Daily?For ascites. Hold if systolic blood pressure is below 120 mmHg. Tamsulosin (tamsulosin 0.4 mg oral capsule)?0.4?Milligram?1?capsule?By Mouth?Daily?(LAST FILLED 10/01/22) Tramadol (traMADol 50 mg oral tablet)?0.5?tab(s)?25?Milligram?By Mouth?Every 6 hours?as needed?Pain , Severe?for 7?Days?not to exceed 100 mg/day; do not administer ifyou are feeling weak, dizziness, sleepy, or in acute distress ? Vaccinations and Immunoprophylaxis pneumococcal 23-valent vaccine: 0.5 Unknown (07/16/20 07:00:00) SARS-CoV-2 (COVID-19) mRNA-1273 vaccine: 0.25 Unknown (10/11/21 07:00:00) SARS-CoV-2 (COVID-19) mRNA-1273 vaccine: 0.5 Unknown (11/14/20 07:00:00) SARS-CoV-2 (COVID-19) mRNA-1273 vaccine: 0.5 Unknown (10/17/20 07:00:00) tetanus-diphtheria toxoids (Td): 0.5 Unknown (06/16/19 08:00:00) ? Durable Medical Equipment Discharge recommendations: Rehab (01/22/23) Name of Agency #1: [facility] (06/13/22) Service Categories #1: Physical Therapy, Penit[facility] (06/13/22) Service Comments #1: A referral has been made to [facility] to provide nursing and PT services at home. ??The agency will contact you to set up a visit. ??Please contact them at if you do not hear from them within 24 hours of discharge. (06/13/22) CPAP/BiPAP Mask Type: Pillows (02/07/23) CPAP/BiPAP Mask Size: Medium (02/07/23) Ambulatory devices needed: Walker (02/07/23) ? Medications Started Lasix (furosemide) 40 mg daily Aldactone (spironolactone) 100 mg daily Coreg (carvedilol) 6.25 mg 2 times a day Midodrine 10 mg 3 times a day Tramadol 25 mg as needed Narcan Lactulose Protonix Medications Discontinued Metoprolol succinate Metformin Xanax Torsemide Doses Changed Plavix to be held and resume once hematuria completely resolve Allergies Allergies ?(Active and Proposed Allergies Only) TiZANidine Hydrochloride? (Severity: Unknown severity, Onset: Unknown) ?Reactions: hallucination pregabalin? (Severity: Unknown severity, Onset: Unknown) ?Reactions: hallucination lisinopril? (Severity: Unknown severity, Onset: Unknown) ?Reactions: throat swelling ?Comments: throat swelling Latex? (Severity: Unknown severity, Onset: Unknown) ?Reactions: Rash Contrast Dye? (Severity: Unknown, Onset: Unknown) ?Reactions: Unknown ? PCP Follow-Up/Heads-Up Ascites management, monitor tolerance to diuretics Monitor side effects of IV abx Refer back to [facility] for prostate issue Refer back to [facility] for cirrhosis management Hospital Course Patient is admitted for neck pain, fatigue with known cervical issues, multiple cardiac issues and cirrhosis. Inpatient workup ruled out ACS but did reveal strep bacteremia and cervical spine osteomyelitis, as well as acute kidney injury and new ascites. He underwent paracentesis with SBP ruled outand EMMANUEL resolved with supportive care. Tagged-WBC scan ruled out pacemaker infection or endocarditis (unable to do LISANDRA due to varices and neck tenderness from infection). His blood culture cleared upwith IV abx. Due to stable neuro exam and co-morbidities, following NSG and ID consult his infection was managed with IV abx only with good response, his mobility improved significantly and now able to ambulate with walker but does not require assistance. Hospital course was complicated by gross hematuria that required CBI which has mostly cleared, consult recommended to remove Meier and avoidcatheter placement if possible, he passed voiding trial. He also received 1 unit PRBC due to anemiathat related to acute illness but no evidence of acute variceal bleed. Following discussion with family patient opted to go home to have VNA for home IV abx infusion, with close outpatient follow up. ?? Today patient is alert and oriented, coherent and cooperative, he is ambulatory without focal neurodeficits, urinating without significant symptoms.??Discussed outpatient follow up plan, medication changes, ER return parameters in details, all questions answered to his satisfaction. 90 days Rx sent to pharmacy. CM verified that patient will have one last dose of ceftriaxone in house today and next dose will be delivered to his house before 2PM tomorrow. Family (son and [id number]) are closely updated during hospital course and by the day of discharge, who will arrange transporation. Objective Assessment and Plan ?? Gross hematuria Prostate cancer s/p XRT -resolved with CBI now able to void following Meier removal, avoid additional instrumentation unless patient is severely symptomatic -continue Flomax and Proscar -follow up with [facility] ?? Cervical discitis/osteomyelitis with anterior epidural phlegmon Cervical central stenosis with myelopathy -neuro exam stable no long-tract signs with stable gait, NSG recommendations appreciated, due to minimal symptoms and poor surgical candidacy will manage with 6 weeks of IV abx, VNA and home infusionhas been set up -continue acetaminophen, low dose tramadol as needed and topical analgesics for pain -ID recommendations appreciated: ?? OPAT Script Indication/s: Cervical osteomyelitis Antimicrobial/s: _Ceftriaxone 2 g every 24 Planned duration: 6 weeks Start date: January 26 End date:??March 08 Vascular access:??PICC line Monitoring labs (test/frequency):??Weekly CBC with differential,??creatinine, BUN,??LFTs, biweekly ESR and CRP Imaging needed before outpt f/u visit: No Suggested outpt f/u visit: Yes, requested in 3 to 4 weeks ?? ID office: ?? Streptococcus parasanguinis??bacteremia, resolved -source likely recent dental procedure -repeat culture cleared, TTE and nuclear scan negative for valvular/pacemaker lead involvement, to finish IV abx as planned above outpatient -PICC line to be placed 02/04 initially malpositioned now in good position to use after adjustment ?? 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 Burns??I encouraged him to follow up as appropriate tomanage complications from cirrhosis as well as HCC and varices screening -patient is advised to avoid NSAIDs and limit acetaminophen to no more than 2000 mg over 24 hours, avoid raw seafood and approaching beach area, limit sodium intake to less than 2g/day -due to high MELD score and concurrent EMMANUEL would avoid any non-life saving surgery due to high riskof mortality, if urgent intervention needed would consider consulting GI for pre-op optimization ?? Grade 2 ascites 2/2 portal hypertension SBP ruled out -s/p diagnostic and therapeutic paracentesis 01/26 with 2.85L removed, cell count not consistent with SBP -SAAG>1.1 stared on Lasix and Aldactone at 2:5 ratio, will discharge with 40 mg and 100 mg dailywith holding parameters, outpatient follow up for titration -2g sodium restriction ?? History of??esophageal varices -BB was held during early hospital course due to EMMANUEL, resumed but switched from Toprol XL to Coreg with hold parameters -follow up with primary GI at [facility] for scheduled EVL ?? Acute kidney injury grade 1, resolved -evidenced by Cr>0.3 mg/dL from baseline (~0.8-0.9 mg/dL last year), resolved with treatment of infection and albumin for volume challenge, urine indices non- active low suspicion for PIGN or IgA nephrology, monitor closely while on diuretics ?? Pancytopenia 2/2 hypersplenism with superimposed acute blood loss anemia due to hematuria -s/p 1 unit PRBC 02/06 with good response, hematuria has resolved, no evidence of GI bleeding -continue iron supplement upon discharge ?? CAD s/p PCI with stable angina Severe s/p TAVR Complete heart block s/p PPM -cardiology consult appreciated, clinically low suspicion for ACS or decompensated heart failure, continue ASA and statin, resume Plavix outpatient once hematuria completely resolve ?? Peripheral edema due to hypervolemia and hypoalbuminemia from liver disease Hypoxia 2/2 atelectasis -continue PO diuretics, avoid IV diuresis in absence of pulmonary edema due to risk of kidney injury ?? History of HTN -switched from??Toprol XL to Coreg as primary prophylaxis for variceal bleeding -continue midodrine to maintain MAP>81 mmHg and avoid hypotension -avoid RAASi ?? DM2 with hypoglycemia, controlled -resume long-acting insulin at a lower dose with Farxiga, metformin will be stopped due to risk of lactic acidosis from liver disease ?? Debility -steadily improve during hospital stay, ambulate with walker without assistance, continue home PT ?? Anxiety -[employer] reviewed on Xanax, this will contribute to his cognitive and physical decline in light of liver failure, patient is not taking it regularly at home and willing to stop given risks seems to outweigh the risk, will discontinue from home meds upon discharge ?? ANUJA on CPAP ?? Discussed with RN/CM; Tele reviewed paced rhythm. ?? Measurements?? Height: 175 cm (02/07/23) Weight: 94 kg (01/23/23) Dry Weight: 94 kg (01/23/23) Body Mass Index:??30.69 kg/m2??Critical (01/23/23) ? Vital Signs?? Temperature: 98 DegF (02/07/23 12:05:00) Temperature Route: Oral (02/07/23 12:05:00) Pulse Rate: 62 bpm (02/07/23 12:05:00) Respiratory Rate: 18 br/min (02/07/23 12:05:00) Systolic Blood Pressure: 106 mm Hg (02/07/23 12:05:00) Diastolic Blood Pressure:??42 mm Hg??Low (02/07/23 12:05:00) Blood pressure sites: Arm, left (02/07/23 12:05:00) Mean Arterial Pressure: 63 mm Hg (02/07/23 12:05:00) Pulse Pressure: 64 mm Hg (02/07/23 12:05:00) Oxygen Saturation: 96 % (02/07/23 12:05:00) Liters per Minute: 3 L/min (02/07/23 04:19:00) Mode of Delivery (Oxygen): Room air (02/07/23 12:05:00) Early Warning Score: 3 (02/07/23 12:10:42) ? Perfusion Assessment Cardiac Rhythm: Paced (02/07/23 09:00:00) Cardiovascular: WNL except (02/07/23 09:00:00) Cardiovascular Assessment Status: Unchanged from recorder's assessment (02/07/23 03:00:00) Pacemaker: Yes (02/06/23 21:12:00) ? Pain Scores?? No qualifying data available. ? Ventilator Settings?? No qualifying data available. ? Intake/Output? 01/23 13:09 02/07 07:00 02/06 07:00 02/05 07:00 02/04 07:00 ?? 02/07 12:48 02/07 12:48 02/07 06:59 02/06 06:59 02/05 06:59 Intake ?21056 ?0 ? 3547 ?81234 ? 1840 Output ?98286 ?600 ? 5850 ?74151 ? 3000 Net Total ? -66739 ? -600 ?-2303 ?-2230 ?-1160 ? Urine Count ? 10 ?1 ?0 ?0 ?2 ? Precautions No Precautions documented.? [place] Coma Scale [place] Coma Score: 15 (02/04/23 20:00:00) Motor Response-Adult: Obeys commands (02/04/23 20:00:00) Response Eye Opening: Spontaneously (02/04/23 20:00:00) Verbal Response-Adult: Oriented and converses (02/04/23 20:00:00) ?? Basic ADLs Activity Assistance: One person assistance (02/07/23) Ambulation Distance ft: 650 (02/07/23) Ambulatory devices needed: Walker (02/07/23) Feeding Assistance: Independent (02/07/23) Hygiene: Assist, Complete bath (02/07/23) ? Mobility & Ambulation Level Mobility & Ambulation Level Activity Assistance: One person assistance (02/07/23) Activity Status ADL: Ambulating in [place] (02/07/23) Ambulation Patient Effort: Good (02/07/23) Ambulatory devices needed: Walker (02/07/23) ?? Therapeutic Activity Therapeutic Activities/Mobility/Balance Comments on treatment indicated: 77 y/o M presents for weakness. ??He has known pinched nerves in his neck causing pain and weakness WBAT. PT for strengthening, balance, transfer training, gait training and stair negotiation. Rec d/c to rehab pending progress. (01/22/23 09:18:00) Plan of care PT: Gait training, Transfer training, Therapeutic exercise, Functional Activities, Balance training, Neuromuscular education (01/22/23 09:18:00) Problems PT: Impaired strength/ROM, Impaired functional mobility, Impaired balance, Impaired safety, Difficulty walking (01/22/23 09:18:00) Treatment Indicated-PT: Yes (01/22/23 09:18:00) Discharge recommendations: Rehab (01/22/23 09:18:00) Ambulation, ??PT Plan: Supervision (02/06/23 10:05:00) Barriers to goal achievement: Multiple medical problems (01/22/23 09:18:00) Bed mobility: PT Plan: Minimal assist (02/06/23 10:05:00) Equipment PT: Walker (01/22/23 09:18:00) Facilitators to goal achievement: Motivated (01/22/23 09:18:00) intermediate PT goals: At baseline for functional mobility (01/22/23 09:18:00) Plan Discussed w/Pt,Family/Agreed Upon: Yes (01/22/23 09:18:00) Plan discussed with care team PT: RN, application architect manager (01/22/23 09:18:00) PT Duration: 2 weeks (01/22/23 09:18:00) PT Short Term Goals: IND in HEP (02/06/23 10:05:00) Rehab potential: Fair (01/22/23 09:18:00) Transfer bed to chair PT Plan: Contact guard (02/06/23 10:05:00) Transfer Sit to Stand, PT Plan: Contact guard (02/06/23 10:05:00) ?? . Physical Exam Constitutional: Alert, in no acute distress. Head EENT: Extraocular muscle movement intact.??Moist mucous membranes.??No cervical spinal tenderness. Respiratory: Decreased air entry at lung base. No use of accessory muscles. Cardiovascular: S1S2 regular. No murmurs, rubs or gallops. Gastrointestinal: Abdomen soft, non-tender, non-distended. Normal bowel sounds. Extremities: 2+ pitting edema. No cyanosis or clubbing. Neurologic: AAOx3, Speech normal. No focal neurological deficits. Skin: No rash. Psychiatric: Normal mood and affect Consultants Cardiology, GI, ID, urology Pending Results Add On Lab Order ordered on 01/24/2023 Add On Lab Order ordered on 01/26/2023 Add On Lab Order ordered on 01/26/2023 Hepatitis B Surface Ab Quant ordered on 01/24/2023 Hold Gel Top Tube ordered on 01/30/2023 Transfuse RBCs ordered on 02/06/2023 Patient Education Titles OUD Narcan Nasal [place]?? Opioid Prescription Risks and Treatment Resources?? Midodrine Oral Tablet?? Spironolactone Oral Tablet?? Furosemide Oral Tablet?? Ascites?? Cirrhosis?? Discharge Instructions: Caring for Your Peripherally Inserted Central Catheter (PICC)?? Discharge Instructions for Osteomyelitis?? Follow-Up Appointments Added Follow Up ?Time Frame ?Comments Arsenio Burns MD?4 to 5 weeks Maninder Gorman MD?2 to 3 weeks Patient Instructions Medication changes: ?? New medications: Lasix (furosemide) 40 mg daily, this is for ascites; Aldactone (spironolactone) 100 mg daily, this is for ascites; Coreg (carvedilol) 6.25 mg 2 times a day, this is for your heart and also lower the risk of stomachbleeding due to liver cirrhosis; Midodrine 10 mg 3 times a day, this is to maintain your blood pressure in order for you to tolerateabove 3 medications; Tramadol 25 mg as needed, this is a low potency opioid medication to help with severe pain related to neck infection; Narcan, this is to reverse opioid overdose in case of emergency; Lactulose, this is a laxative, you may take as needed if constipated, the goal is to have 1-2 bowelmovement daily, please stop if you have excessive loose stool or diarrhea (more than 3 times per day); Protonix (pantoprazole), this is a medication to help acid reflux, it may also lower risk of stomach ulcer and bleeding that can be caused by aspirin or Plavix; ?? Stopped medications: Metoprolol succinate, this will be replaced by carvedilol; Metformin, this is a medication for diabetes but the side effects may be excessive in patient with cirrhosis; Xanax (alprazolam), this is medication for anxiety but will increase risk of confusion or fall due to your liver conditions; Torsemide, this is a water pill to be replaced by Lasix and Aldactone; ?? Temporarily held medications: Plavix (clopidogrel) 75 mg daily, this is a blood thinner for your heart conditions, please hold following discharge and resume once the blood in urine is completely cleared up; ?? Medications with changed dosage: Insulin, see instructions below. ?? Conditions being treated in??hospital: ?? 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 There will be blood work drawnfrom PICC line on your right arm for outpatient provider to review. You will be followed up by [facility] (referral made) in roughly 3-4 weeks, and based on your tolerance andresponse to treatment there may be adjustment of the treatment plan; ?? A brief course of tramadol will be prescribed, this is an opioid and may cause side effects includ but not limited to dizziness, excessive sleepiness, fall risk, confusion, constipation, respiratory suppression etc. Please reserve this for most severe pain only, do not drive or conduct activities that might be dangerous to yourself or others while on opioid medications, do not take other sedativemedications togehter with opioid (such as gabapentin, or medications for allergy, anxiety, or sleeping aids); ?? Please have family administer Narcan nasal spray as per instruction if you were found collapsed, difficult to wake up, or in trouble breathing, and call 911 in the meantime; ?? Liver disease: You are also diagnosed with decompensated cirrhosis, it means your liver function was significantlycompromised and this is a irreversible process; You have excessive amount of free fluid in your belly (ascites) that will be treated with water pills below: ?? Lasix (furosemide) 40 mg daily; Aldactone (spironolactone) 100 mg daily; ?? A new medication carvedilol (Coreg) will be added, this is a medication to help with your heart condition, and also reduce risk of bleeding from stomach due to varices (another complication from liver cirrhosis); Please STOP metoprolol; ?? Please check your blood pressure daily in the morning before the medications, and hold all three medications for that day if the systolic blood pressure is below 120 mmHg. A new medication midodrine will be prescribed to raise and maintain your blood pressure in the morning range which may lower risk of mortality or kidney injury due to liver disease; ?? Please also limit salt intake to no more than 2-3 g per daily, as excessive salt intake may allow more fluid build on inside of your belly or other part of the body; Ascites will cause discomfort, difficulty breathing, belly distention, and occasional get infected which is a serious complication ofcirrhosis; ?? Ascites and other complications related to??cirrhosis??(varices, hepatic encephalopathy, liver cancer screening etc.) will be managed by your primary rn supplemental at [facility]; ?? Please avoid ibuprofen, naproxen, diclofenac or other over the??counter analgesics collectively called NSAIDs . NSAIDs can increase the risk of bleeding, kidney failure, make ascites build up more rapidly and other side effects. You may use acetaminophen up to 2000 mg over 24 hours for minor pain or headache; ?? Please avoid exposure to raw sea food, and stay away from beach or other area where the salt content is high in the water, as they may contain bacteria that can cause serious infection in patient with liver diseases; ?? Please keep your vaccination updated; ?? Blood in the urine: The bloody urine has mostly resolved and likely related to your known prostate issue, please followup with urology at [facility] for further management; ?? Cardiac conditions: Your cardiac conditions has been fairly stable throughout hospital course, please follow up with your primary knitter machine as scheduled; ?? Please hold Plavix (clopidogrel) until the bloody urine is completely resolved; ?? Diabetes: You insulin requirement is significantly lower than the dose of insulin you were on at home, it is possible that your glucose will rise up following discharge; ?? Check glucose level before each meal and 2 hours after dinner (or bedtime); ?? Please continue Farxiga (dapagliflozin) and Trulicity (dulaglutide)??as prescribed; ?? Lower long-acting insulin Tresiba (insulin degludec) to 10 units daily at bedtime; If morning glucose level is persistently above 200 mg/dL, increase Tresiba by 3-5 units every 3 days until it is below 200 mg/dL; ?? Lower short-acting??insulin NovoLog (insulin aspart) before each meal based on new sliding scale: ?? 150 - 199?2 units 200 - 249?7 units 250 - 299?12 units 300 - 349?17 units 350 - 399?22 units ?? Any time your glucose is below 70 mg/dL, take some juice or candy and recheck glucose in 15 minutesto ensure it goes above 100 mg/dL; Whenever your feel lightheaded, dizziness, heart racing, break out cold sweat, feeling anxious, looking palke, tremoring or other discomfort, always check a glucoseand blood pressure immediately; ?? Your glucose target is 100-120 mg/dL before meal, and 200 mg/dL 2 hours after meal; Keep glucose reading a diary.??Please reach out to your outpatient provider within one week to review glucose reading and adjust insulin as needed; ?? Anemia: You received transfusion in the hospital, your blood count has been chronically low as the consequence of liver cirrhosis, it is lower in hospital due to acute illness (infection etc.), please continue iron supplement upon discharge, take laxatives or fiber supplement as iron tablet may cause constipation, which you should avoid to have; ?? Outpatient follow ups: Please follow up with primary care provider within 1-2 weeks if possible, to review hospital course, medication changes, review glucose control, manage chronic conditions and pain; ?? Please follow up with primary rn supplemental within 1 month to continue manage complications from liver cirrhosis; ?? Please follow up with primary urologist within 1 month if possible to continue manage prostate problems; ?? Please follow up with [facility] (referral given, to be scheduled) to manage spine infection; Please call [phone] to confirm appointment if you not hear from them in one week; ?? Red flag symptoms and ER return parameters: ?? Return to nearest emergency room or call 911 if you experience: ?? Fever T>100.4F, chill, worsening neck pain, sudden onset or progressive weakness in arms or legs, difficulty standing up, unable to control urination or bowel movements, redness/tenderness/open wound on left upper chest generator pocket, as these may suggest worsening of spine infection, nerve damage caused by infection, or pacemaker infection; ?? Worsening belly distention, pain, nausea/vomiting, unable to tolerate food, persistently low blood pressure (systolic blood pressure below 90 mmHg), extreme fatigue, yellowish discoloration of skin or eye, confusion, excessive sleepiness, as these may suggest ascites infection or worsening liver function or ascites infection; ?? Bloody or coffee-ground vomit, bloody or tarry stool, blood clots in urine, pain or spasm in lower belly area, severe urge to defecate without actual bowel movement, lightheadedness, extreme fatigue,??looking pale??as these may suggest blooding from esophagus, stomach, intestine??or bladder; ?? Glucose is persistently below 70 mg/dL despite taking sugar in, especially with accompanied symptoms; ?? Chest pain lasts longer than 10 minutes, that is??triggered by minimal exertion or at rest, difficulty breathing, heart racing, profuse sweating, fainting episode, as these may suggest acute heart conditions; ?? Or other severe and/or persistent symptoms raise concern of acute illness. Post Discharge Care Activity: Ambulate ??With Assistance ??3 times a day Code Status: ?? Full Resuscitation Condition: Stable Prognosis: Fair Home Health Face to Face *Denotes mandatory kramer ?? *I certify that this patient is under my care and that I or an allowed non- physician working with me had a face to face encounter with the patient on this date:??02/07/2023 12:49 ?? 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 *Select the indications for the discipline/s that are being arranged for this patient. Nursing (select all that apply): [_] None [*] Medication management (reconciliation, teaching)?? [*] Chronic disease management?? [_] Wound care and treatment?? [_] Home safety evaluation [*] Administer SQ/IM/IV medications?? [*] Cath care?? [_] Drain care?? [_] Trach or GT care?? Other _ Occupation Therapy (select all that apply): [_] None [_] ADL Management [_] Fall prevention training [_] Energy conservation [_] Cognitive training Other _ Physical Therapy (select all that apply): [_] None [*] Functional mobility training [_] Home exercise program to strengthen [_] Increase ROM?? [*] Falls prevention training [_] Home maintenance program for chronic disease Other _ Speech Therapy (select all that apply): [_] None [_] Swallow evaluation and training [_] Speech and language training [_] Cognitive training to process, organize, and/or recall information Other _ ? *Homebound due to (select all that apply): [*] Inability to leave home without assistance/supervision [_] Inability to ambulate without assistance [_] Pain [*] Decreased strength and endurance [_] Unsteady gait [_] Severe SOB and fatigue [_] Impaired transfers [_] Inability to negotiate stairs [_] Limited weight bearing [_] Mental status change? *Physician Signature:??SUSU HOLGUIN ?? *By signing this, I certify that I have personally evaluated the patient and agree with the findings and recommendations as documented above. ? althFTF Results Discharge Labs BLOOD BANK Blood Type A Positive ()?? 02/06/2023 07:04 Antibody Screen Negative ()?? 02/06/2023 07:04 RBC Unit ID [id number] ()?? 02/06/2023 11:11 RBC Available PT ()?? 02/06/2023 11:11 ?? BLOOD COUNT & DIFF WBC 6.2 k/mm3 ()?? 02/07/2023 06:09 RBC 2.72 m/mm3 (Low)?? 02/07/2023 06:09 Hgb 7.8 Gm/dL (Low)?? 02/07/2023 06:09 Hct 24.9 % (Low)?? 02/07/2023 06:09 MCV 91.5 femtoliters ()?? 02/07/2023 06:09 MCH 28.7 pg ()?? 02/07/2023 06:09 MCHC 31.3 g/dL (Low)?? 02/07/2023 06:09 Platelet Count 103 k/mm3 (Low)?? 02/07/2023 06:09 RDW-SD 56.0 femtoliters (High)?? 02/07/2023 06:09 MPV 10.6 femtoliters ()?? 02/07/2023 06:09 Nucleated RBC (Automated) 0.0 #/100 WBC'S ()?? 02/07/2023 06:09 Abs. NRBC 0.0 k/mm3 ()?? 02/07/2023 06:09 Abs. Neut 4.4 k/mm3 ()?? 01/23/2023 06:07 Abs. Lymph 0.4 k/mm3 (Low)?? 01/23/2023 06:07 Abs. Dawson 0.6 k/mm3 ()?? 01/23/2023 06:07 Abs. Eo 0.1 k/mm3 ()?? 01/23/2023 06:07 Abs. Baso 0.0 k/mm3 ()?? 01/23/2023 06:07 Neut % 78.8 % (High)?? 01/23/2023 06:07 Lymph % 7.0 % (Low)?? 01/23/2023 06:07 Dawson % 11.4 % (High)?? 01/23/2023 06:07 Eos % 2.2 % ()?? 01/23/2023 06:07 Baso % 0.2 % ()?? 01/23/2023 06:07 Imm Gran 0.4 % ()?? 01/23/2023 06:07 Abs. Imm Gran 0.0 k/mm3 ()?? 01/23/2023 06:07 ?? CARDIAC High Sensitivity Troponin (HSTnT) 47 ng/L (High)?? 01/22/2023 08:45 ? CHEM GENERAL Sodium 139 mmol/L ()?? 02/07/2023 06:09 Potassium 3.9 mmol/L ()?? 02/07/2023 06:09 Chloride 105 mmol/L ()?? 02/07/2023 06:09 Bicarbonate Level 29 mmol/L ()?? 02/07/2023 06:09 Anion Gap 5 ()?? 02/07/2023 06:09 Glucose Level 106 mg/dL (High)?? 02/07/2023 06:09 Glucose, POC 159 mg/dL (High)?? 02/07/2023 12:08 BUN 20 mg/dL ()?? 02/07/2023 06:09 Creatinine-Blood 1.0 mg/dL ()?? 02/07/2023 06:09 Estimated GFR Creatinine 81 ML/MIN/1.73 M2 ()?? 02/07/2023 06:09 Calcium 8.3 mg/dL (Low)?? 02/07/2023 06:09 Phosphorus 3.3 mg/dL ()?? 02/06/2023 05:45 Magnesium 1.7 mg/dL ()?? 02/06/2023 05:45 Protein, Total 5.1 Gm/dL (Low)?? 02/06/2023 05:45 Albumin 2.9 Gm/dL (Low)?? 02/06/2023 05:45 AG Ratio 1.3 ()?? 02/06/2023 05:45 Alkaline Phosphatase 178 units/L (High)?? 02/06/2023 05:45 AST (SGOT) 25 units/L ()?? 02/06/2023 05:45 ALT (SGPT) 22 units/L ()?? 02/06/2023 05:45 Bilirubin, Total 0.7 mg/dL ()?? 02/06/2023 05:45 Bilirubin, Direct 0.4 mg/dL (High)?? 01/30/2023 01:39 Bilirubin, Indirect 0.4 mg/dL ()?? 01/30/2023 01:39 Vitamin B12 Level 1773 pg/mL (High)?? 01/25/2023 11:33 Folic Acid Level 15.7 ng/mL ()?? 01/25/2023 11:33 Iron Level 19 mcg/dL (Low)?? 01/24/2023 01:14 Iron Binding Capacity, Unsaturated 221 mcg/dL ()?? 01/24/2023 01:14 Iron Binding Capacity, Estimated Total 240 mcg/dL ()?? 01/24/2023 01:14 % Iron Saturation 8 % (Low)?? 01/24/2023 01:14 Ferritin Level 117 ng/mL ()?? 01/24/2023 01:14 C-Reactive Protein 5.2 mg/dL (High)?? 01/30/2023 01:39 ?? COAG INR 1.4 (High)?? 01/28/2023 02:14 Protime (PT) 14.0 seconds (High)?? 01/28/2023 02:14 APTT 25.9 seconds ()?? 01/28/2023 02:14 Fibrinogen 257 mg/dL ()?? 01/28/2023 02:14 ?? ENDOCRINE/TUMOR MARKER TSH 2.54 uIU/mL ()?? 01/21/2023 20:06 ? FLUID STUDIES Color, Fluid YELLOW ()?? 01/26/2023 09:30 Appearance, Fluid CLEAR ()?? 01/26/2023 09:30 WBC, Fluid 180 per Cubic Millimeter ()?? 01/26/2023 09:30 RBC, Fluid <3000 per Cubic Millimeter ()?? 01/26/2023 09:30 Seg, Fluid 40 % ()?? 01/26/2023 09:30 Lymph, Fluid 12 % ()?? 01/26/2023 09:30 Dawson, Fluid 12 % ()?? 01/26/2023 09:30 Baso, Fluid 2 % ()?? 01/26/2023 09:30 Other, Fluid 34 % ()?? 01/26/2023 09:30 T. Protein, Fluid 1.0 Gm/dL ()?? 01/26/2023 09:30 Albumin, Fluid 0.5 Gm/dL ()?? 01/26/2023 09:30 ? HEME OTHER Sed Rate 12 mm/hr ()?? 01/30/2023 01:39 ? IMMUNOLOGY GENERAL Complement C3 75 mg/dL (Low)?? 01/26/2023 06:54 Complement C4 6 mg/dL (Low)?? 01/26/2023 06:54 IgG 1063 mg/dL ()?? 01/24/2023 11:35 Anti-Nuclear Antibody Screen POSITIVE (Abnormal)?? 01/24/2023 11:35 Smooth Muscle Ab 20 (High)?? 01/24/2023 11:35 Speckled Pattern 1:80 ()?? 01/24/2023 11:35 Note Comment ()?? 01/24/2023 11:35 Midbody Pattern 1:80 ()?? 01/24/2023 11:35 ?? MISC. CHEMISTRY Ammonia, Venous 49 ??mole/L ()?? 01/28/2023 02:14 ? SEROLOGY INF DISEASE Hepatitis B Surface Antigen NEGATIVE (N)?? 01/24/2023 11:35 Hepatitis C Ab NEGATIVE (N)?? 01/24/2023 11:35 ?? UA/URINALYSIS Appear/Color, Urine LIGHT YELLOW ()?? 01/27/2023 06:10 Specific [place], Urine 1.012 ()?? 01/27/2023 06:10 pH, Urine 6.0 ()?? 01/27/2023 06:10 Albumin, Urine NEGATIVE ()?? 01/27/2023 06:10 Glucose, Urine NEGATIVE ()?? 01/27/2023 06:10 Ketones, Urine NEGATIVE ()?? 01/27/2023 06:10 Bilirubin, Urine NEGATIVE ()?? 01/27/2023 06:10 Hemoglobin, Urine NEGATIVE ()?? 01/27/2023 06:10 Nitrite, Urine NEGATIVE ()?? 01/27/2023 06:10 Leukocyte, Urine NEGATIVE ()?? 01/27/2023 06:10 Urobilinogen NORMAL mg/dL ()?? 01/27/2023 06:10 WBC's, Urine 1 /HPF ()?? 01/27/2023 06:10 RBC's, Urine 2 /HPF ()?? 01/27/2023 06:10 Bacteria SLIGHT HPF (Abnormal)?? 01/22/2023 06:17 Squamous Epith <1 /HPF ()?? 01/27/2023 06:10 Mucus SLIGHT /LPF ()?? 01/22/2023 06:17 Hold Urine Culture Testing available 48 hours from time of collection. ()?? 01/22/2023 06:17 ? URINE OTHER Creatinine, Urine Random 52.0 mg/dL ()?? 01/27/2023 06:10 Sodium, Urine Random <20 mmol/L ()?? 01/27/2023 06:10 Protein, Urine Random 10 mg/dL ()?? 01/27/2023 06:10 Est Creatinine Clearance 59.70 mL/min ()?? 02/04/2023 02:10 ?? VIROLOGY COVID-19 by RT-PCR NEGATIVE ()?? 01/21/2023 16:11 ? 60??minutes spent on discharge * Kamilah Rashid RN: PERFORM Event Display: Patient Education/Instruction Authored Date: [id number] Inpatient Adult Discharge Instructions [address] [address] Name: GILLES WRIGHT : 1945 Visit: 01/23/2023 13:09:00 Current Date: 02/07/2023 15:08 Account: [id number] Inpatient Adult Discharge Instructions We would like to thank you for allowing us to assist you with your healthcare needs. The following includes patient education materials and information regarding your injury/illness. Our entire staffstrives to provide an excellent experience for our patients and their families. PLEASE ENSURE YOU FOLLOW-UP PER THE INSTRUCTIONS BELOW! ?? YOUR OPINION IS IMPORTANT TO US! Please complete the survey you may receive by mail or email. Your feedback will be used to make improvements to the healthcare experiences of our patients and their families. Surveys are administered by [employer] ?? If further treatment with your primary care physician or another doctor is recommended, it is important for you to keep the appointment. Call your primary care physician or return to the Emergency Department immediately if your condition worsens, fails to improve, or new symptoms develop. If you need to find a doctor, you can call [facility] for a referral at [phone] or toll free at [phone] or log in to [email or web address] ?? You can view and manage your care through the patient portal or by using a health care zoe of your choosing. [employer] is a website that allows you to securely view your medical information including your hospital discharge summary, office visit summaries, medications and follow-up visits. You can also request appointments, renew medications, and request access to your medical information using a health care zoe of your choosing, or just ask a question. You can enroll at [email or web address] or register during your next office visit. You have been discharged from [facility], Patient Care Unit: M6. If you have any questions regarding these instructions after you leave, please call us and we will be happy to assist you. [facility] Your Care Team Attending Physician Susu Holguin MD Consulting Providers Ilana ROONEY, Susu Joe MD Discharging Providers Susu Holguin MD Reason for Your Visit neck pain. history of arhtirits. Your Diagnosis Troponin level elevated Coronary artery disease S/P TAVR (transcatheter aortic valve replacement) Pacemaker Ascites of liver Bacteremia due to Streptococcus Decompensated hepatic cirrhosis Elevated troponin Hematuria Osteomyelitis of cervical spine Tests Performed Below is a partial list of the tests performed during your hospitalization. You may have had other tests and procedures not included in this list. Please discuss all test results with your provider. 12341 Albumin Level ALBUMIN-FLUID Ammonia Venous SHAVON Screen B12 Vitamin Level Basic Metabolic Panel BUN CBC CBC w/ Differential Cell Count Fluid COMPLEMENT C3 COMPLEMENT C4 Comprehensive Metabolic Panel COVID-19 (Novel Coronavirus), Rapid PCR Creatinine Creatinine Urine CRP Electrolytes ESR AVINASH Staining Patterns FERRITIN Fibrinogen FLUID DIFFERENTIAL Folate Level Glucose Level GLUCOSE POC H + H HEPATIC FUNCTION PANEL Hepatitis B Surface Antigen Hepatitis C Ab High??Sensitivity??Troponin T IgG Level INR IRON & TIBC Liver Function Panel Magnesium Level Mg Level Phosphorus Level Potassium Level PT (INR) PTT Smooth Muscle Ab Screen Sodium Urine T. PROTEIN FLUID Troponin T, High Sensitivity TSH with T4 Reflex (Adults Only) Type and Screen UA Urinalysis w/hold for Urine Culture Urine Total Protein CT Abdomen and Pelvis W/O Contrast CT Cervical Spine W/O Contrast CXR Portable CXR W/ Frontal and Lat MRI Cervical Spine W+W/O Contrast NM Inflam Loc Whole Body 2/+ Days NM SPECT CT CT 2/+ days US Ascites US Guide Abdomen Paracentesis w/Imaging US Retroperitoneum Comp Primary Care Provider Vita ROONEY, Maninder Sanon Advance Directive . Discharge Vitals Temperature: 98 DegF Height: 175 cm Pulse Rate: 62 bpm Weight: 94 kg Respiratory Rate: 18 br/min Body Mass Index:??30.69 kg/m2??Critical Systolic Blood Pressure: 106 mm Hg Body surface area: 2.14 Diastolic Blood Pressure:??42 mm Hg??Low ?? Oxygen Saturation: 96 % ?? Studies Pending All tests and labs ordered during this hospital stay have been completed unless listed below. Please discuss all pending results with your provider listed above in these instructions. ?? Add On Lab Order Hepatitis B Surface Ab Quant Hold Gel Top Tube (HOLD GEL TUBE) Transfuse RBCs What to do next Instructions From Your Doctor Medication changes: ?? New medications: Lasix (furosemide) 40 mg daily, this is for ascites; Aldactone (spironolactone) 100 mg daily, this is for ascites; Coreg (carvedilol) 6.25 mg 2 times a day, this is for your heart and also lower the risk of stomachbleeding due to liver cirrhosis; Midodrine 10 mg 3 times a day, this is to maintain your blood pressure in order for you to tolerateabove 3 medications; Tramadol 25 mg as needed, this is a low potency opioid medication to help with severe pain related to neck infection; Narcan, this is to reverse opioid overdose in case of emergency; Lactulose, this is a laxative, you may take as needed if constipated, the goal is to have 1-2 bowelmovement daily, please stop if you have excessive loose stool or diarrhea (more than 3 times per day); Protonix (pantoprazole), this is a medication to help acid reflux, it may also lower risk of stomach ulcer and bleeding that can be caused by aspirin or Plavix; ?? Stopped medications: Metoprolol succinate, this will be replaced by carvedilol; Metformin, this is a medication for diabetes but the side effects may be excessive in patient with cirrhosis; Xanax (alprazolam), this is medication for anxiety but will increase risk of confusion or fall due to your liver conditions; Torsemide, this is a water pill to be replaced by Lasix and Aldactone; ?? Temporarily held medications: Plavix (clopidogrel) 75 mg daily, this is a blood thinner for your heart conditions, please hold following discharge and resume once the blood in urine is completely cleared up; ?? Medications with changed dosage: Insulin, see instructions below. ?? Conditions being treated in??hospital: ?? 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 There will be blood work drawnfrom PICC line on your right arm for outpatient provider to review. You will be followed up by [facility] (referral made) in roughly 3-4 weeks, and based on your tolerance andresponse to treatment there may be adjustment of the treatment plan; ?? A brief course of tramadol will be prescribed, this is an opioid and may cause side effects includ but not limited to dizziness, excessive sleepiness, fall risk, confusion, constipation, respiratory suppression etc. Please reserve this for most severe pain only, do not drive or conduct activities that might be dangerous to yourself or others while on opioid medications, do not take other sedativemedications togehter with opioid (such as gabapentin, or medications for allergy, anxiety, or sleeping aids); ?? Please have family administer Narcan nasal spray as per instruction if you were found collapsed, difficult to wake up, or in trouble breathing, and call 911 in the meantime; ?? Liver disease: You are also diagnosed with decompensated cirrhosis, it means your liver function was significantlycompromised and this is a irreversible process; You have excessive amount of free fluid in your belly (ascites) that will be treated with water pills below: ?? Lasix (furosemide) 40 mg daily; Aldactone (spironolactone) 100 mg daily; ?? A new medication carvedilol (Coreg) will be added, this is a medication to help with your heart condition, and also reduce risk of bleeding from stomach due to varices (another complication from liver cirrhosis); Please STOP metoprolol; ?? Please check your blood pressure daily in the morning before the medications, and hold all three medications for that day if the systolic blood pressure is below 120 mmHg. A new medication midodrine will be prescribed to raise and maintain your blood pressure in the morning range which may lower risk of mortality or kidney injury due to liver disease; ?? Please also limit salt intake to no more than 2-3 g per daily, as excessive salt intake may allow more fluid build on inside of your belly or other part of the body; Ascites will cause discomfort, difficulty breathing, belly distention, and occasional get infected which is a serious complication ofcirrhosis; ?? Ascites and other complications related to??cirrhosis??(varices, hepatic encephalopathy, liver cancer screening etc.) will be managed by your primary rn supplemental at [facility]; ?? Please avoid ibuprofen, naproxen, diclofenac or other over the??counter analgesics collectively called NSAIDs . NSAIDs can increase the risk of bleeding, kidney failure, make ascites build up more rapidly and other side effects. You may use acetaminophen up to 2000 mg over 24 hours for minor pain or headache; ?? Please avoid exposure to raw sea food, and stay away from beach or other area where the salt content is high in the water, as they may contain bacteria that can cause serious infection in patient with liver diseases; ?? Please keep your vaccination updated; ?? Blood in the urine: The bloody urine has mostly resolved and likely related to your known prostate issue, please followup with urology at [facility] for further management; ?? Cardiac conditions: Your cardiac conditions has been fairly stable throughout hospital course, please follow up with your primary knitter machine as scheduled; ?? Please hold Plavix (clopidogrel) until the bloody urine is completely resolved; ?? Diabetes: You insulin requirement is significantly lower than the dose of insulin you were on at home, it is possible that your glucose will rise up following discharge; ?? Check glucose level before each meal and 2 hours after dinner (or bedtime); ?? Please continue Farxiga (dapagliflozin) and Trulicity (dulaglutide)??as prescribed; ?? Lower long-acting insulin Tresiba (insulin degludec) to 10 units daily at bedtime; If morning glucose level is persistently above 200 mg/dL, increase Tresiba by 3-5 units every 3 days until it is below 200 mg/dL; ?? Lower short-acting??insulin NovoLog (insulin aspart) before each meal based on new sliding scale: ?? 150 - 199?2 units 200 - 249?7 units 250 - 299?12 units 300 - 349?17 units 350 - 399?22 units ?? Any time your glucose is below 70 mg/dL, take some juice or candy and recheck glucose in 15 minutesto ensure it goes above 100 mg/dL; Whenever your feel lightheaded, dizziness, heart racing, break out cold sweat, feeling anxious, looking palke, tremoring or other discomfort, always check a glucoseand blood pressure immediately; ?? Your glucose target is 100-120 mg/dL before meal, and 200 mg/dL 2 hours after meal; Keep glucose reading a diary.??Please reach out to your outpatient provider within one week to review glucose reading and adjust insulin as needed; ?? Anemia: You received transfusion in the hospital, your blood count has been chronically low as the consequence of liver cirrhosis, it is lower in hospital due to acute illness (infection etc.), please continue iron supplement upon discharge, take laxatives or fiber supplement as iron tablet may cause constipation, which you should avoid to have; ?? Outpatient follow ups: Please follow up with primary care provider within 1-2 weeks if possible, to review hospital course, medication changes, review glucose control, manage chronic conditions and pain; ?? Please follow up with primary rn supplemental within 1 month to continue manage complications from liver cirrhosis; ?? Please follow up with primary urologist within 1 month if possible to continue manage prostate problems; ?? Please follow up with [facility] (referral given, to be scheduled) to manage spine infection; Please call [phone] to confirm appointment if you not hear from them in one week; ?? Red flag symptoms and ER return parameters: ?? Return to nearest emergency room or call 911 if you experience: ?? Fever T>100.4F, chill, worsening neck pain, sudden onset or progressive weakness in arms or legs, difficulty standing up, unable to control urination or bowel movements, redness/tenderness/open wound on left upper chest generator pocket, as these may suggest worsening of spine infection, nerve damage caused by infection, or pacemaker infection; ?? Worsening belly distention, pain, nausea/vomiting, unable to tolerate food, persistently low blood pressure (systolic blood pressure below 90 mmHg), extreme fatigue, yellowish discoloration of skin or eye, confusion, excessive sleepiness, as these may suggest ascites infection or worsening liver function or ascites infection; ?? Bloody or coffee-ground vomit, bloody or tarry stool, blood clots in urine, pain or spasm in lower belly area, severe urge to defecate without actual bowel movement, lightheadedness, extreme fatigue,??looking pale??as these may suggest blooding from esophagus, stomach, intestine??or bladder; ?? Glucose is persistently below 70 mg/dL despite taking sugar in, especially with accompanied symptoms; ?? Chest pain lasts longer than 10 minutes, that is??triggered by minimal exertion or at rest, difficulty breathing, heart racing, profuse sweating, fainting episode, as these may suggest acute heart conditions; ?? Or other severe and/or persistent symptoms raise concern of acute illness. Discharge Orders Activity:??Ambulate With Assistance 3 times a day Code Status:?? Full Resuscitation Condition:??Stable Prognosis:??Fair You Need to Schedule the Following Appointments Follow Up with??Arsenio Burns MD When:??Within 4 to 5 weeks Where: [address] [place] [id number]- Follow Up with??Vita ROONEY, Maninder Sanon When:??Within 2 to 3 weeks Where: [address] [place], [place] [id number]- Discharge Medications GILLES WRIGHT :1945 Visit Date:01/23/2023 Medications: Please continue your medications until treatment is completed or stopped by your provider. Medications not listed below should be discontinued. Discuss any questions related to medications with your provider. What How Much When Instructions Next Dose New Carvedilol (Coreg 6.25 mg oral tablet) 1 tab(s) Oral Twice a day Hold if systolic blood pressure is below 120 mmHg and/ or heart rate is below 55 [id number] ?? Pickup at [email or web address] #[id number] 02/07/23p New Furosemide (Lasix 40 mg oral tablet) 1 tab(s) Oral Daily For ascites. Hold if systolic blood pressure is below 120 mmHg. ?? Pickup at [email or web address] #[id number] 02/08/23 New Lactulose (lactulose 10 gm/ 15 ml oral syrup) See instructions Take 15 mL as needed for constipation, please maintain daily bowel movement, hold for excessive loose stool or diarrhea (more than 3 times a day)., As needed for Other ?? Pickup at [email or web address] #[id number] As needed New Lidocaine Topical (lidocaine 5% topical film) 1 patch Topically Daily Apply to back of the neck tender point, 12 hours on then 12 hours off. ?? Pickup at [email or web address] #[id number] 02/08/23 New Midodrine (midodrine 10 mg oral tablet) 1 tab(s) Oral 3 times a day Refills: 2 To help maintain systolic blood pressure above 110-120 mmHg ?? Pickup at [email or web address] #[id number] 02/07/23p New nalOXONE (Narcan 4 mg/ 0.1 mL nasal spray) 4 Milligram Nares, Both Once as needed for Other To reverse opioid overdose, administer to each nostril, may repeat every 2 to 3 minutes until patient responds, call 911 in the meantime. ?? Pickup at [email or web address] #[id number] As needed New Pantoprazole (pantoprazole 40 mg oral delayed release tablet) 1 tab(s) Oral Daily Pickup at [facility] #[id number] 02/08/23 New Spironolactone (Aldactone 100 mg oral tablet) 1 tab(s) Oral Daily For ascites. Hold if systolic blood pressure is below 120 mmHg. ?? Pickup at [facility] #[id number] 02/08/23 Changed Bethanechol (bethanechol 25 mg oral tablet) 1 tab(s) Oral Twice a day 02/07/23 Changed Ferrous Sulfate (ferrous sulfate 325 mg oral enteric coated tablet) 1 tab(s) Oral Daily Pickup at [facility] #[id number] 02/08/23 Changed Finasteride (finasteride 5 mg oral tablet) 1 tab(s) Oral Daily Pickup at [facility] #[id number] 02/08/23 Changed Tamsulosin (tamsulosin 0.4 mg oral capsule) 1 capsule Oral Daily (LAST FILLED ) ?? Pickup at [facility] #[id number] 02/08/23 Changed Tramadol (traMADol 50 mg oral tablet) 0.5 tab(s) Oral Every 6 hours as needed for Pain , Severe Duration: 7 Days not to exceed 100 mg/ day; do not administer if you are feeling weak, dizziness, sleepy, or in acute distress ?? Pickup at [id number] As needed Changed dulaglutide (Trulicity Pen 0.75 mg/ 0.5 mL subcutaneous solution) 0.5 Milliliter Subcutaneous Injection Every week EVERY THURSDAY ?? As directed Changed insulin degludec (Tresiba FlexTouch) 10 unit(s) Subcutaneous Injection Daily at Bedtime 02/07/23 Unchanged Aspirin (aspirin 81 mg oral delayed release tablet) 1 tab(s) Oral Daily Do not start aspirin until 2021 ?? Pickup at [facility] #[id number] 02/08/23 Unchanged Atorvastatin (Lipitor 80 mg oral tablet) 1 tab(s) Oral Daily Pickup at [facility] #[id number] 02/08/23 Unchanged Clopidogrel (clopidogrel 75 mg oral tablet) 1 tab(s) Oral Daily Hold following discharge and resume once blood in urine clear up ?? 02/08/23 Unchanged dapagliflozin (Farxiga 10 mg oral tablet) 1 tab(s) Oral Daily Pickup at [facility] #[id number] 02/08/23 Unchanged Ezetimibe (Zetia 10 mg oral tablet) 1 tab(s) Oral Daily Pickup at [facility] #[id number] 02/08/23 Unchanged Gabapentin (gabapentin 400 mg oral capsule) 1 capsule Oral 3 times a day 02/07/23p Unchanged Insulin Aspart (NovoLOG FlexTouch) See instructions 2-25 units Subcutaneous Injection 3 times a day before meals and bedtime ?? 02/07/23p Pharmacy Information [facility] #[id number]: [address], [place] [id number] [phone] ?? What How Much When Comments Stop Taking Alprazolam (ALPRAZolam 0.5 mg oral tablet) 1 tab(s) Oral Twice a day Stop Taking Dexamethasone (dexamethasone 4 mg oral tablet) 1 tab(s) Oral Twice a day Duration: 14 Days Stop Taking Metformin (metformin 1000 mg oral tablet) 1 tab(s) Oral Twice a day (LAST FILLED ) ?? Stop Taking Metoprolol (Metoprolol Succinate ER 100 mg oral tablet, extended release) 1 tab(s) Oral Daily Stop Taking Omeprazole (omeprazole 20 mg oral enteric coated capsule) 1 capsule Oral Twice a day Stop Taking Oxycodone (oxyCODONE 5 mg oral tablet) 1 tab(s) Oral Every 6 hours as needed for as needed for pain D/ C BY [facility] ?? Stop Taking Sucralfate (sucralfate 1 gm oral tablet) 1 tab(s) Oral 2 times a day before breakfast and dinner (LAST FILLED ) ?? Stop Taking torsemide (torsemide 20 mg oral tablet) 1 tab(s) Oral Daily Test Results Below is a partial list of the most recent Laboratory test results done prior to this discharge. You may have had other tests and procedures not included in this list. Please discuss all test resultswith your provider. Est Creatinine Clearance - 59.70 mL/min (02/04/2023) RBC Available - PT (02/06/2023) RBC Unit ID - [id number] (02/06/2023) [id number] (01/26/2023) ? ?Cytology Reports General - Patient Name: GILLES WRIGHT
Patient : 1945 (Age: 77)
Lab
Collection Date: 01/26/2023
Accession Date: 01/26/2023
Sign Out Date: 01/27/2023

Tissue Source:
1: PERITONEAL FLUID:

Final Diagnosis:

PERITONEAL FLUID:
NEGATIVE FOR MALIGNANT CELLS.
Reactive mesothelial cells present.

Cellblock is noncontributory (acellular).

Clinical History:
Date of Last Menstrual Period: not available
Menstrual History: not available
Contraceptive History: not available
Ancillary Testing: not available
Clinical History (other): History prostate CA
US- ascites- small amount <br/&g t;

Gross Description:
Received 60cc of light yellow, hazy fluid
1 ThinPrep cellular enhancement technique
Cell block 01/26/2023

Primary Pathologist:
Chidi Gutierrez M.D.
Phone #: [phone], On-Call Pathologist: [id number] Albumin Level (01/24/2023) ???Albumin - 2.8 Gm/dL ALBUMIN-FLUID (01/26/2023) ???Albumin, Fluid - 0.5 Gm/dL Ammonia Venous (01/28/2023) ???Ammonia, Venous - 49 ??mole/L SHAVON Screen (01/24/2023) ???Anti-Nuclear Antibody Screen - POSITIVE B12 Vitamin Level (01/25/2023) ???Vitamin B12 Level - 1773 pg/mL Basic Metabolic Panel (02/07/2023) ???Sodium - 139 mmol/L???Potassium - 3.9 mmol/L???Chloride - 105 mmol/L???Bicarbonate Level - 29 mmol/L???Anion Gap - 5???Glucose Level - 106 mg/dL???BUN - 20 mg/dL???Creatinine-Blood - 1.0 mg/dL???Estimated GFR Creatinine - 81 ML/MIN/1.73 M2???Calcium - 8.3 mg/dL BUN (01/23/2023) ???BUN - 28 mg/dL CBC (02/07/2023) ???WBC - 6.2 k/mm3???RBC - 2.72 m/mm3???Hgb - 7.8 Gm/dL???Hct - 24.9 %???MCV - 91.5 femtoliters???MCH - 28.7 pg???MCHC - 31.3 g/dL???Platelet Count - 103 k/mm3???RDW-SD - 56.0 femtoliters???MPV - 10.6 femtoliters???Nucleated RBC (Automated) - 0.0 #/100 WBC'S???Abs. NRBC - 0.0 k/mm3 CBC w/ Differential (01/23/2023) ???WBC - 5.5 k/mm3???RBC - 2.96 m/mm3???Hgb - 8.9 Gm/dL???Hct - 27.8 %???MCV - 93.9 femtoliters???MCH - 30.1 pg???MCHC - 32.0 g/dL???Platelet Count - 92 k/mm3???RDW-SD - 53.1 femtoliters???MPV - 11.2femtoliters???Nucleated RBC (Automated) - 0.0 #/100 WBC'S???Abs. NRBC - 0.0 k/mm3???Abs. Neut - 4.4 k/mm3???Abs. Lymph - 0.4 k/mm3???Abs. Dawson - 0.6 k/mm3???Abs. Eo - 0.1 k/mm3???Abs. Baso - 0.0 k/mm3???Neut % - 78.8 %???Lymph % - 7.0 %???Dawson % - 11.4 %???Eos % - 2.2 %???Baso % - 0.2 %???Imm Gran - 0.4 %???Abs. Imm Gran - 0.0 k/mm3 Cell Count Fluid (01/26/2023) ???Color, Fluid - YELLOW???Appearance, Fluid - CLEAR???WBC, Fluid - 180 per Cubic Millimeter???RBC,Fluid - <3000 per Cubic Millimeter COMPLEMENT C3 (01/26/2023) ???Complement C3 - 75 mg/dL COMPLEMENT C4 (01/26/2023) ???Complement C4 - 6 mg/dL Comprehensive Metabolic Panel (02/06/2023) ???Sodium - 139 mmol/L???Potassium - 3.7 mmol/L???Chloride - 105 mmol/L???Bicarbonate Level - 28 mmol/L???Anion Gap - 6???Glucose Level - 119 mg/dL???BUN - 20 mg/dL???Creatinine-Blood - 1.0 mg/dL???Estimated GFR Creatinine - 81 ML/MIN/1.73 M2???Calcium - 8.2 mg/dL???Protein, Total - 5.1 Gm/dL???Albu min - 2.9 Gm/dL???AG Ratio - 1.3???Alkaline Phosphatase - 178 units/L???AST (SGOT) - 25 units/L???ALT (SGPT) - 22 units/L???Bilirubin, Total - 0.7 mg/dL COVID-19 (Novel Coronavirus), Rapid PCR (01/21/2023) ???COVID-19 by RT-PCR - NEGATIVE Creatinine (01/23/2023) ???Creatinine-Blood - 1.3 mg/dL???Estimated GFR Creatinine - 56 ML/MIN/1.73 M2 Creatinine Urine (01/27/2023) ???Creatinine, Urine Random - 52.0 mg/dL CRP (01/30/2023) ???C-Reactive Protein - 5.2 mg/dL Electrolytes (01/23/2023) ???Sodium - 139 mmol/L???Potassium - 4.2 mmol/L???Chloride - 105 mmol/L???Bicarbonate Level - 25 mmol/L???Anion Gap - 9 ESR (01/30/2023) ???Sed Rate - 12 mm/hr AVINASH Staining Patterns (01/24/2023) ???Speckled Pattern - 1:80???Note - Comment???Midbody Pattern - 1:80 FERRITIN (01/24/2023) ???Ferritin Level - 117 ng/mL Fibrinogen (01/28/2023) ???Fibrinogen - 257 mg/dL FLUID DIFFERENTIAL (01/26/2023) ???Seg, Fluid - 40 %???Lymph, Fluid - 12 %???Dawson, Fluid - 12 %???Baso, Fluid - 2 %???Other, Fluid - 34 % Folate Level (01/25/2023) ???Folic Acid Level - 15.7 ng/mL Glucose Level (01/23/2023) ???Glucose Level - 66 mg/dL GLUCOSE POC (02/07/2023) ???Glucose, POC - 159 mg/dL H + H (01/31/2023) ???Hgb - 7.0 Gm/dL???Hct - 21.8 % HEPATIC FUNCTION PANEL (01/24/2023) ???Protein, Total - 5.0 Gm/dL???Albumin - 2.5 Gm/dL???Alkaline Phosphatase - 283 units/L???AST (SGOT) - 53 units/L???ALT (SGPT) - 53 units/L???Bilirubin, Total - 1.1 mg/dL???Bilirubin, Direct - 0.6 mg/dL???Bilirubin, Indirect - 0.5 mg/dL Hepatitis B Surface Antigen (01/24/2023) ???Hepatitis B Surface Antigen - NEGATIVE Hepatitis C Ab (01/24/2023) ???Hepatitis C Ab - NEGATIVE High??Sensitivity??Troponin T (01/22/2023) ???High Sensitivity Troponin (HSTnT) - 47 ng/L IgG Level (01/24/2023) ???IgG - 1063 mg/dL INR (01/27/2023) ???INR - 1.4???Protime (PT) - 14.6 seconds IRON & TIBC (01/24/2023) ???Iron Level - 19 mcg/dL???Iron Binding Capacity, Unsaturated - 221 mcg/dL???Iron Binding Capacity, Estimated Total - 240 mcg/dL???% Iron Saturation - 8 % Liver Function Panel (01/30/2023) ???Protein, Total - 5.1 Gm/dL???Albumin - 3.2 Gm/dL???Alkaline Phosphatase - 206 units/L???AST (SGOT) - 30 units/L???ALT (SGPT) - 25 units/L???Bilirubin, Total - 0.8 mg/dL???Bilirubin, Direct - 0.4 mg/dL???Bilirubin, Indirect - 0.4 mg/dL Magnesium Level (02/06/2023) ???Magnesium - 1.7 mg/dL Mg Level (02/04/2023) ???Magnesium - 1.8 mg/dL Phosphorus Level (02/06/2023) ???Phosphorus - 3.3 mg/dL Potassium Level (02/05/2023) ???Potassium - 3.5 mmol/L PT (INR) (01/28/2023) ???INR - 1.4???Protime (PT) - 14.0 seconds PTT (01/28/2023) ???APTT - 25.9 seconds Smooth Muscle Ab Screen (01/24/2023) ???Smooth Muscle Ab - 20 Sodium Urine (01/27/2023) ? ?Sodium, Urine Random - <20 mmol/L T. PROTEIN FLUID (01/26/2023) ???T. Protein, Fluid - 1.0 Gm/dL Troponin T, High Sensitivity (01/22/2023) ???High Sensitivity Troponin (HSTnT) - 37 ng/L TSH with T4 Reflex (Adults Only) (01/21/2023) ???TSH - 2.54 uIU/mL Type and Screen (02/06/2023) ???Blood Type - A Positive???Antibody Screen - Negative UA (01/27/2023) ???Appear/Color, Urine - LIGHT YELLOW???Specific [place], Urine - 1.012???pH, Urine - 6.0???Albumin, Urine - NEGATIVE???Glucose, Urine - NEGATIVE???Ketones, Urine - NEGATIVE???Bilirubin, Urine - NEGATIVE???Hemoglobin, Urine - NEGATIVE???Nitrite, Urine - NEGATIVE???Leukocyte, Urine - NEGATIVE???Urobi linogen - NORMAL? ?WBC's, Urine - 1 /HPF? ?RBC's, Urine - 2 /HPF? ?Squamous Epith - <1 /HPF Urinalysis w/hold for Urine Culture (01/22/2023) ???Appear/Color, Urine - YELLOW???Specific [place], Urine - 1.022???pH, Urine - 6.0???Albumin, Urine - TRACE???Glucose, Urine - 4+???Ketones, Urine - NEGATIVE???Bilirubin, Urine - NEGATIVE???Hemoglobin, Urine - NEGATIVE???Nitrite, Urine - NEGATIVE???Leukocyte, Urine - NEGATIVE???Urobilinogen - NORMAL???WBC's, Urine - 2 /HPF???RBC's, Urine - 1 /HPF???Bacteria - SLIGHT???Squamous Epith - 2 /HPF???Mucus - SLIGHT???Hold Urine Culture - Testing available 48 hours from time of collection. Urine Total Protein (01/27/2023) ???Protein, Urine Random - 10 mg/dL Allergies (NKA means No Known Allergies) Contrast Dye??(Unknown) Latex??(Rash) TiZANidine Hydrochloride??(hallucination) lisinopril??(throat swelling) pregabalin??(hallucination) Problems Active Problems??(13) CAD (coronary artery disease), LAD?? CHF (congestive heart failure)?? Diabetes mellitus type 2, insulin?? Essential hypertension?? Hyperlipidemia?? Iron deficiency anemia?? Neuropathy?? Obese class I?? Old myocardial infarction, NSTEMI, s/p ZORA?? ANUJA on CPAP?? Pericardial effusion, s/p pericardiocentesis?? Prostate cancer?? Pulmonary HTN?? Education Materials Below is the list of Educational Leaflet Providered with your Discharge Instructions. OUD Narcan Nasal [place]?? Opioid Prescription Risks and Treatment Resources?? Midodrine Oral Tablet?? Spironolactone Oral Tablet?? Furosemide Oral Tablet?? Ascites?? Cirrhosis?? Discharge Instructions: Caring for Your Peripherally Inserted Central Catheter (PICC)?? Discharge Instructions for Osteomyelitis?? Valuables and Belongings I fully understand and agree that [facility] accepts no responsibility for all my personal property including clothing, toilet articles, radios, jewelry, dentures, hearing aids, rings, money, or any other property that is in my possession or is brought to me after admission. I understand certain valuables may be placed in a hospital safe for a short period of time. I understand that the hospital is not liable for loss or damage due to accident, fire, or other natural occurrence while said property is in the safe. I accept full responsibility for any personal property that I keep with me, and will not hold the hospital responsible in case of loss or disappearance. I acknowledge that i have been encouraged to send valuables and belongings home. ?? Review of Valuable and Belonging List: With patient, With witness Date for Pt to Sign Valuables/Belongings: 01/23/23 09:18:00 ?? Other Discharge Information Nutrition Discharge Status?? Nutrition Discharge Status?? Diet (discharge): Please refer to handout given to you by your dietitian/service desk technician, 2000mg Sodium ?? Wound Assessment?? Wound Assessment?? Wound Location I: Foot, left Wound Type I: Blister ?? Case Management Discharge Plan?? Discharge Plan?? Discharge Agency Information?? Discharge Level of Care at Discharge: Homehealth/VNA Name of Agency #1: [facility] Discharge VNA/Hospice/Home Care: [facility] [place] Name of Agency #1: [facility] Companies: [facility] [phone] Service Start Date and Time #1: 02/08/23 14:00:00 ?? Service Categories #1: Penitentiary ?? Service Comments #1: [facility] to come ??prior to Antibiotics being due for first visit. ?? Service Categories #2: Home IV antibiotics ?? Service Comments #2: Someone from [facility] will be calling to set up delivery sometimes prior to 2 ??pm on Thursday ?? Pulmonary Rehab Status?? Pulmonary Rehab Discharge Status?? CPAP/BiPAP Mask Type: Pillows CPAP/BiPAP Mask Size: Medium Respiratory Rate: 18 br/min Discharge Medical Equipment Companies: [facility] [phone] ? Common Emergency Awareness Tips IS IT A STROKE? Act FAST and Check for these signs: FACE Does the face look uneven? ARM Does one arm drift down? SPEECH Does their speech sound strange? TIME Call at any sign of stroke ?? Heart Attack Signs Chest discomfort: Most heart attacks involve discomfort in the center of the chest and lasts more than a few minutes, or goes away and comes back. It can feel like uncomfortable pressure, squeezing, fullness or pain. Discomfort in upper body: Symptoms can include pain or discomfort in one or both arms, back, neck, jaw or stomach. Shortness of breath: With or without discomfort. Other signs: Breaking out in a cold sweat, nausea, or lightheaded. Remember, MINUTES DO MATTER. If you experience any of these heart attack warning signs, call to get immediate medical attention! ?? Smoking can increase your chances of developing chronic health problems and can cause harmful effects to other family members in your house. If you smoke, you are strongly encouraged to quit. Please call [facility] [employer] Link at [phone] or [phone] ([phone]) or log in to [email or web address] for referrals to smoking cessation programs. ?? 475 Suicide & Crisis Lifeline is available 06/04 if you or someone you know needs to find a reason to keep living. By calling 624 you'll be connected to a skilled, trained counselor at a crisis center in your area. INPATIENT DISCHARGE INSTRUCTIONS SIGNATURE PAGE GILLES WRIGHT Location:[facility] Registration Date and Time:01/23/2023 13:09 EDT Primary Care Physician: Vita ROONEY, Maninder Sanon, Attending Physician: Susu Holguin MD, I GILLES WRIGHT, have received the above patient education materials/instructions and have verbalized understanding. If ambulance or transport services are being used I further acknowledge being given a choice of service. ?? If you need to contact me, please call me at this number: . Patient/Bundle Packer Name: Patient/Bundle Packer Signature: Relationship to Patient: Witness Name/Signature: Date: * Susu Holguin MD: PERFORM Event Display: Patient Education Leaflets Authored Date: [id number] OUD Narcan Nasal [place] ?? 556 ? QUICK START GUIDE Opioid Overdose Response Instructions ?? Use NARCAN Nasal [place] (naloxone hydrochloride) for known or suspected opioid overdose in adults and children. Important: For use in the nose only. Do not remove or test the NARCAN Nasal [place] until ready to use. ?? 1 - Identify Opioid Overdose and Check for Response? -?? Ask person if he or she is okay and shout name.? - Shake shoulders and firmly rub the middle of their chest ? - Check for signs of opioid overdose: ? - Will not wake up or respond to your voice or touch ? - Breathing is very slow, irregular, or has stopped ? - Center part of their eye is very small, sometimes called ???pinpoint pupils? - Lay the person on their back to receive a dose of NARCAN Nasal [place]. ?? 2 - Give NARCAN Nasal [place]? - Remove NARCAN Nasal [place] from the box. ? - Peel back the tab with the pilot station to open the ?NARCAN Nasal [place]. ? - Hold the NARCAN nasal spray with your thumb on the bottom of the? plunger and your first and middle fingers on either side of the nozzle.? -?? Gently insert the tip of the nozzle into either nostril. ? - Tilt the person???s head back and provide support under the neck with your hand.? Gently insert the tip of the nozzle into one nostril, until your fingers ? on either side of the nozzle are against the bottom of the ? person???s nose. ? - Press the plunger firmly to give the dose of NARCAN Nasal [place].? - Remove the NARCAN Nasal [place] from the nostril ? after giving the dose. ? 3 - Call for emergency medical help, Evaluate, and Support? - Get emergency medical help right away. ? - Move the person on their side (recovery position)? after giving NARCAN Nasal [place]. ? - Watch the person closely. ? - If the person does not respond by waking up, to voice or touch, or breathing normally ? another dose may be given. NARCAN Nasal [place] may be dosed every 2 to 3 minutes, ? if available. ? - Repeat Step 2 using a new NARCAN Nasal [place] to give another dose in the? other nostril . If additional NARCAN Nasal Sprays are available, repeat step 2 every2 ? to 3 minutes until the person responds or emergency medical help is received. ? * Susu Holguin MD: PERFORM Event Display: Patient Education Leaflets Authored Date: [id number] Opioid Prescription Risks and Treatment Resources ?? 223 Prescription Opioid Risks and Treatment Resources You have been prescribed an opioid as part of your pain treatment, which may be used following injury, surgery, or arising from other health conditions. All patients taking opioids are at risk for unintentional overdose, addiction, or . Therefore, you should discuss with your prescriber all treatment options available to you. ?? Common side effects of opioids include: ? Constipation ? Breathing problems ? Low Sex Drive, Energy, and Strength ? Sleepiness/drowsiness ? Confusion ? Nausea ?? Opioids are powerful painkillers, and if misused can have serious side effects including addiction.Your risk increases if: ? You are also taking other drugs like antihistamines, barbiturates, or antidepressant/anxiety medications (e.g., Benzodiazepines) ? You consume alcohol while taking opioids ? You or a family member have a history of substance use disorder or overdose ? You have a mental health condition, such as depression or anxiety ? You have sleep apnea ? You take more than the recommended prescribed amount ?? Know your options ? Read all instructions for your medication, take your medication exactly as prescribed, do not adjust your doses, and keep track of when you take your medication. ? If you have any questions about your medication ask your prescriber or pharmacist, including information about possible side effects as well as options for seeking a partial fill of the prescription. If you decide to partially fill your prescription opioid, you will need to contact your prescriber if additional medication is needed. ? Talk to your prescriber about non-opioid treatment options or if you don???t want nancy treated with opioids. ? Ask your prescriber about having an antidote (e.g., Naloxone) in case of an accidental overdose. ?? Protecting family, friends, and others Storage: Medications should be kept in a locked cabinet or box when not in use. Medications should be placed in a location hard for children and pets to reach Disposal: For the safety of others and the environment, patients are encouraged to take advantage of drug take-back programs and safe drop sites, which are available on the [place] [employer] Location website.[1] When these programs are not accessible, other secondary methods including flushing the medication down the toilet should be considered Addiction Resources:?? Be aware of the signs of addiction, which include uncontrollable cravings and inability to control opioid use even though it is having negative effects on personal relationships or finances. If you suspect or are concerned about addiction, the following resources may help: ? For Youth, Young Adults (up to age 24), and Women : [facility] Intake & Care Coordination: or [phone] ? For all [place] residents: Information and Referrals for Substance Abuse Services: TTY: 798.859.7694 or online at www.[employer]plineWhi.com ?? Recommendations for Medication Storage Medications can be an important part of any treatment but also come with serious risks.?? Prescription opioids in particular are used to treat moderate or severe pain following injury, surgery, or for other health conditions.?? To avoid accidental or illegal use of prescriptions by others, it is critical that you properly store medication in areas least likely to be found or accessible by children, family members, and guests ?? Commonly Abused Prescription Medications: ? Pain Medications prescribed for people with serious, long-term pain, and sometimes short term pain: Vicodin??, OxyContin??, Percocet??, and codeine ? Stimulants used to treat attention deficit hyperactivity disorder (ADHD), or other disorders: Ritalin??, Concerta??, Adderall??, Dexedrine??, and Meridia? Sedatives, Tranquilizers, and Barbituates prescribed to treat stress, anxiety, panicattack, insomnia and seizures: Valium??, Xanax??, Ativan??, Klonopin??, Ambien??, Lunesta? Keeping others Safe: It is important to store your medication in a place that is not likely to be found by children, family members, and guests. ? Keep your prescriptions in a secure location to make sure kids, family, and guests don???t have access to them, preferably in a locked box which you can purchase at your local pharmacy. ? Know where your prescription medications are at all times. ? Keep prescription medications in the original bottle with the label attached and thechild-resistant cap secured. ? Keep track of how many prescription pain pills are in your bottle so you are immediately aware if any are missing. ?? Additional Best Practices for Proper Storage: ? Don???t leave the cotton plug in a medicine bottle. ? Check the expiration date each time you take a drug. ? Never use a medication that has changed color, texture, or odor, even if it has not . Safely dispose of capsules or tablets that stick together, are harder or softer than normal, or are cracked or chipped. ? Ask your pharmacist about any specific storage instructions for your medications. ?? Why this information is important: According to recent statistics, approximately 71% of obtained prescription drugs are gifted, purchased, or stolen from friends and relatives. In fact, survey results from 2105-0352 suggest that 6.1 million people have used prescription drugs for non-medical purposes in a given month. Proper storageand keeping commonly abused medications out of reach of children, family members, and guests can prevent others from illegally or accidentally taking your medications and prevent harmful risks such as overdose or . ? [1] http://www.[place].gov/eohhs/gov/departments/dph/programs/substance-abuse/preventio n/ntntkavswafq-yfdxsvq-vpaophlht.html ?? * Susu Holguin MD: PERFORM Event Display: Patient Education Leaflets Authored Date: [id number] Midodrine Oral Tablet ?? [address] Midodrine Oral Tablet Uses For low blood pressure. ?? Instructions This medicine may be taken with or without food. This medicine will work best if you take it at about the same time every day. Try to avoid taking the medicine at bedtime. Space doses at least 4 hours apart unless instructed otherwise. Store at room temperature away from heat, light, and moisture. Do not keep in the bathroom. It is important that you keep taking each dose of this medicine on time even if you are feeling well. If you forget to take a dose on time, take it as soon as you remember. If it is almost time for thenext dose, do not take the missed dose. Return to your normal schedule. Do not take 2 doses at one time. Drug interactions can change how medicines work or increase risk for side effects. Tell your healthcare providers about all medicines taken. Include prescription and wtel-vid-wxjzwvp medicines, vitamins, and herbal medicines. Speak with your doctor or pharmacist before starting or stopping any medicine. Keep all appointments for medical exams and tests while on this medicine. ?? Cautions Tell your doctor and pharmacist if you ever had an allergic reaction to a medicine. Do not use the medication any more than instructed. This medicine may cause dizziness or fainting, especially after exercising or in hot weather. Be very careful when standing or sitting up quickly. This medicine may cause dangerous increase in blood pressure when lying down. Do not take medicine less than four hours before bedtime or nap. Your ability to stay alert or to react quickly may be impaired by this medicine. Do not drive or operate machinery until you know how this medicine will affect you. Please check with your doctor before drinking alcohol while on this medicine. Tell the doctor or pharmacist if you are , planning to be , or . Do not share this medicine with anyone who has not been prescribed this medicine. ?? Side Effects The following is a list of some common side effects from this medicine. Please speak with your doctor about what you should do if you experience these or other side effects. ??? agitated feeling or trouble sleeping ??? dizziness or drowsiness ??? dry mouth ??? muscle cramps ??? skin tingling ??? stomach pain ??? increased urinary frequency Call your doctor or get medical help right away if you notice any of these more serious side effects: ??? chest pain ??? chills ??? confusion ??? throbbing in the ear ??? fainting ??? severe or persistent headache ??? fast, irregular, or slow heartbeat ??? high blood pressure ??? nervousness ??? difficulty or discomfort urinating ??? blurring or changes of vision ??? weakness A few people may have an allergic reaction to this medicine. Symptoms can include difficulty breathing, skin rash, itching, swelling, or severe dizziness. If you notice any of these symptoms, seek medical help quickly. ?? Extra Please speak with your doctor, nurse, or pharmacist if you have any questions about this medicine. ?? [email or web address] IMPORTANT NOTE: This document tells you briefly how to take your medicine, but it does not tell youall there is to know about it. Your doctor or pharmacist may give you other documents about your medicine. Please talk to them if you have any questions. Always follow their advice. There is a more complete description of this medicine available in [place]ese. Scan this code on your smartphone or tablet or use the web address below. You can also ask your pharmacist for a printout. If you have any questions, please ask your pharmacist. The display and use of this drug information is subject to Terms of Use. Copyright(c) 2022 [employer] ?? 4344-1543 [employer]. All rights reserved. This information is not intended as a substitute for professional medical care. Always follow your healthcare professional's instructions. ?? * Paula Magaña: PERFORM Event Display: Procedures Invasive Line Authored Date: [id number] Vascular Access Insertion Entered On: 02/04/2023 18:47 EDT Performed On: 02/04/2023 18:43 EDT by Paula Magaña Vascular Access Insertion Provider Reading CXR : Nba ROONEY, Paula Marcelino - 02/04/2023 19:16 EDT Date of Vascular Access Insertion : 02/04/2023 EDT Procedure Location Vascular Access : M6 Person recording insertion : Office Administration Instructor Office Administration Instructor of Vascular Access : Gómez Paula Occupation of Vascular Access Office Administration Instructor : Registered nurse Was brickmason a member of PICC/IV Team : Yes Paula Magaña - 02/04/2023 18:43 EDT Paula Magaña 02/04/2023 18:43 EDT Procedural Comments Risk Factors and Labs Reviewed : Yes Paula Magaña 02/04/2023 19:16 EDT Anticoagulation Therapy : Yes Antiplatelet Therapy : No Was vascular access order placed : Yes Vascular Access Type : Central line Time Out Performed : Yes Time Out Data : Patient identified, Site verified, Procedure verified, Consent signed, RN attendance Reason for Vascular Access Insertion : Medication requires use of vascular access Suspected Vascular Access Infection : Yes, the access placed was exchanged over a guide wire Vascular Access Procedure Check : Consent obtained Hand Hygiene prior to insertion : Yes Maximal sterile barriers used : Mask, Sterile gown, Large sterile full body drape, Sterile gloves, Ultrasound sterile cover, Cap Sterile Field Maintained : Yes Skin Preparation : Chlorhexidine (CHG) Skin Prep dry at first skin puncture : Yes Antimicrobial coated catheter used : No Successful central line placement : Yes Vascular Access Catheter Type : PICC line Vascular Access Insertion Site : Other: right upper extremity basilic vein Vascular Access Insertion Side : Right Vascular Access Catheter Size : 4fr Vascular Access Catheter Length : 40cm Vessel Identified By : Ultrasound Vascular Access Insertion Circumstance : Non-emergent Vascular Access Catheter Securement : Sutureless (Statlock) Vascular Access Dressing : Occlusive Follow-up CXR : Ordered Paula Magaña 02/04/2023 18:43 EDT CXR Comment : Gamaliel 3CG technology directed, CXR to ensure correct position as pt has pacemaker,now in Distal SVC per radiologist Paula Magaña 02/04/2023 19:16 EDT Paula Magaña 02/04/2023 19:16 EDT DCP GENERIC CODE Suture needles : 0 [place] : 3 Scalpels : 1 Clamps : 0 Guide Wires : 1 Paula Magaña - 02/04/2023 18:43 EDT Complications during Insertion : None Tolerated CLIP procedure well : Yes Insertion Attempts : 1 Vascular Access Device QA : BRD CTPICC SL 4fr @ 40cm Vascular Access Device Lot Number : [id number] Vascular Access Device Code : [id number] Vascular Access Device Expiration Date : 01/12/2024 EDT Vascular Access Insertion Comments : Mid arm circumference 10cm above AC Fossa-27cm successful Over The Wire exchange for optimal positioning Paula Magaña - 02/04/2023 18:43 EDT * Paula Magaña: PERFORM Event Display: Procedures Invasive Line Authored Date: [id number] Vascular Access Insertion Entered On: 02/04/2023 15:27 EDT Performed On: 02/04/2023 15:23 EDT by Paula Magaña Vascular Access Insertion Provider Reading CXR : Bc ROONEY, Te Moreno CXR Comment : Right IJ malposition Paula Magaña - 02/04/2023 18:42 EDT Date of Vascular Access Insertion : 02/04/2023 EDT Procedure Location Vascular Access : M6 Person recording insertion : Office Administration Instructor Office Administration Instructor of Vascular Access : Paula Magaña Occupation of Vascular Access Office Administration Instructor : Registered nurse Was brickmason a member of PICC/IV Team : Yes Paula Magaña - 02/04/2023 15:23 EDT Paula Magaña - 02/04/2023 15:23 EDT Procedural Comments Risk Factors and Labs Reviewed : Yes Paula Magaña - 02/04/2023 18:42 EDT Anticoagulation Therapy : Yes Antiplatelet Therapy : No Was vascular access order placed : Yes Vascular Access Type : Central line Time Out Performed : Yes Time Out Data : Patient identified, Site verified, Procedure verified, Consent signed, RN attendance Reason for Vascular Access Insertion : Medication requires use of vascular access Suspected Vascular Access Infection : No, the access was not exchanged over a guide wire Vascular Access Procedure Check : Consent obtained Hand Hygiene prior to insertion : Yes Maximal sterile barriers used : Mask, Sterile gown, Large sterile full body drape, Sterile gloves, Ultrasound sterile cover, Cap Sterile Field Maintained : Yes Skin Preparation : Chlorhexidine (CHG) Skin Prep dry at first skin puncture : Yes Antimicrobial coated catheter used : No Successful central line placement : Yes Vascular Access Catheter Type : PICC line Vascular Access Insertion Site : Other: right upper extremity basilic vein Vascular Access Insertion Side : Right Vascular Access Catheter Size : 4fr Vascular Access Catheter Length : 40 Vessel Identified By : Ultrasound Vascular Access Insertion Circumstance : Non-emergent Vascular Access Catheter Securement : Sutureless (Statlock) Vascular Access Dressing : Occlusive Follow-up CXR : Ordered Paula Magaña - 02/04/2023 15:23 EDT DCP GENERIC CODE Suture needles : 0 [place] : 3 Scalpels : 1 Clamps : 0 Guide Wires : 1 Paula Magaña - 02/04/2023 15:23 EDT Complications during Insertion : None Tolerated CLIP procedure well : Yes Insertion Attempts : 1 Vascular Access Device QA : BARD CTPICC SL 4De @ 40cm Vascular Access Device Lot Number : [id number] Vascular Access Device Code : [id number] Vascular Access Device Expiration Date : 01/12/2024 EDT Vascular Access Insertion Comments : MID ARM CIRCUMFERENCE 10CM ABOVE AC FOSSA-27CM APPROVED FOR CONTRALATERAL SIDE OF PACEMAKER PLACED 05/2022 BY DR. [facility] PER ORDERING MD.NOTE IN ORDERS Paula Magaña - 02/04/2023 15:23 EDT * Freda Hernandez DTR: PERFORM Event Display: Discharge/Transfer Note Hospital Authored Date: [id number] Nutrition Discharge Status Entered On: 01/30/2023 13:59 EDT Performed On: 01/30/2023 13:58 EDT by Freda Hernandez DTR Nutrition Discharge Status Diet (discharge) : Please refer to handout given to you by your dietitian/service desk technician, 2000mg Sodium Freda Hernandez DTR. - 01/30/2023 13:58 EDT * Event Display: Provider Clarification Note Please click on pdf link to open report * Francis , ANDERSON S: TRANSCDavid Devries MD: MODIFY Event Display: Addendum Authored Date: [id number] Clarification: The indeterminate 3.1 cm possibly hypoechoic cystic lesion is located within the spleen as opposed to the posterior right hepatic lobe. Therefore, there is no indication for additionalimaging of the liver, but ultrasound of the spleen could be considered for further evaluation. WSN: [id number] Ordering Physician: Susu Holguin Dictated By: David Weldon MD Dictated Date/Time: 01/27/23 9:55 am Reviewed By: David Weldon MD Signed By: David Weldon MD Signed Date/Time: 01/27/23 9:55 am Transcribed By: CARLOS Transcribed Date/Time: 01/27/23 9:53 am Consult note * Janay Colorado MD: MODIFY, MODIFY, PERFORM Event Display: Consult Authored Date: [id number] Patient: ??GILLES WRIGHT ? Age:??77 Years?Sex:??Male?:??1945?? Chief Complaint/Reason for Consultation Strep bacteremia, C5-C6 osteomyelitis, history of TAVR PPM TTE pending.?? Consult for advice on additional work-up, antibiotic regimen Referring physician-Susu Holguin MD History of Present Illness 77 year old man with a PMHx significant for decompensated liver cirrhosis (Child-Harry B, MELD 15), severe aortic stenosis s/p TAVAR May 2022, complete heart block s/p pacemaker May 2022, lumbar fusion hardware??placed 5 years ago,??DM II, HLD, GERD, esophageal varices, HTN, IBS, prostate cancer, NSTEMI, obesity, pulmonary hypotension and CHF who was admitted on 01/21/23 with generalized weakness, neck pain admitted as a NSTEMI rule out due to troponinemia, this is since been ruled out.?? Further work-up revealed Streptococcus parasanguinous bacteremia on blood cultures drawn 01/24/2023.?? Patient was empirically started on ceftriaxone on 01/25.?? A CT cervical spine performed due to neck pain showed C5-C6 cortical destruction suspicious for discitis/osteomyelitis.?? Further, an MRI performed confirmed C5-C6 discitis and osteomyelitis with extension of the fluid into prevertebral soft tissues from the disc space and a separate small prevertebral fluid collection.?? An anterior epidural phlegmon spanning C5-C6 vertebral bodies measuring 4 mm in thickness was noted.?? Patient was continued on ceftriaxone and repeat blood cultures were drawn 01/26 Patient did spike a fever of 102.8 yesterday at 8 AM but was afebrile prior to that.?? Labs showed a WBC count of 3.8, anemia, creatinine 1.2. Patient says he had a dental procedure performed about a month ago He does not have any pain at the site of his lumbar fusion hardware ?? Notably, he was found to have worsening liver dysfunction along with ascites for which he underwent an ultrasound-guided tap of the ascites fluid.?? Fluid analysis showed 180 WBCs and 40% segmented cells.?? Cultures from the fluid has shown no organisms from Gram stain and no growth on culture so far Review of Systems Reviewed, negative except as noted above Objective Vital Signs?? Temperature: 98.1 DegF (01/27/23 07:44:00) Temperature Route: Oral (01/27/23 07:44:00) Pulse Rate: 65 bpm (01/27/23 07:44:00) Respiratory Rate: 18 br/min (01/27/23 07:44:00) Systolic Blood Pressure: 114 mm Hg (01/27/23 07:44:00) Diastolic Blood Pressure:??43 mm Hg??Low (01/27/23 07:44:00) Blood pressure sites: Arm, left (01/27/23 07:44:00) Mean Arterial Pressure: 67 mm Hg (01/27/23 07:44:00) Pulse Pressure: 71 mm Hg (01/27/23 07:44:00) Oxygen Saturation: 98 % (01/27/23 07:44:00) Liters per Minute: 2 L/min (01/27/23 07:44:00) Mode of Delivery (Oxygen): Nasal cannula (01/27/23 07:44:00) Early Warning Score: 7 (01/27/23 08:06:27) ? Ventilator Settings?? No qualifying data available. ? Intake/Output? 01/23 13:09 01/27 07:00 01/26 07:00 01/25 07:00 01/24 07:00 ?? 01/27 09:15 01/27 09:15 01/27 06:59 01/26 06:59 01/25 06:59 Intake ? 4240 ?0 ? 1280 ?200 ? 2020 Output ? 4160 ?0 ? 2560 ?900 ?0 Net Total ? 80 ?0 ?-1280 ? -700 ? 2020 ? Urine Count ?5 ?0 ?2 ?0 ?3 ? Precautions No Precautions documented.? Physical Exam Constitutional: Alert, in no distress. Mental Status: Oriented to person, place and time. Head: Normocephalic. Eyes: No visible??conjunctival??redness??or drainage Ear, Nose and Throat: Oropharynx clear, mucous membranes moist. Neck: Supple, Full range of motion. Respiratory: No audible wheezing, stridor. Normal vesicular breath sounds CVS: S1, s2 normal, soft??systolic murmur Gastrointestinal: Abdomen soft, no tenderness. BS present Neurologic:??No aphasia, moving all extremities??spontaneously Skin: No rashes or lesions. Musculoskeletal: No cyanosis or clubbing. No gross deformities. Psychiatric: Normal mood and affect Assessment/Plan Diagnoses Elevated troponin ??(R77.8) 1. ??Troponin level elevated ??(R77.8) 2. ??Weakness ??(R53.1) 3. ??Coronary artery disease ??(I25.10) 4. ??S/P TAVR (transcatheter aortic valve replacement) ??(Z95.2) 5. ??Pacemaker ??(Z95.0) 6. ??Presence of lumbar fusion hardware ?77 year old man with a PMHx significant for decompensated liver cirrhosis (Child-Harry B, MELD 15), severe aortic stenosis s/p TAVAR May 2022, complete heart block s/p pacemaker May 2022, lumbar fusion hardware??placed 5 years ago who was admitted on 01/21/23 with generalized weakness, neck pain found to have Streptococcus parasanguinous??bacteremia on blood cultures dated 01/24, C5-C6 osteomyelitis??with associated epidural phlegmon.?Started on ceftriaxone 2 g every 24 hours??on 01/25. ??Repeat blood cultures??negative??on 01/26.?? Source of the bacteremia is likely the dental procedure. No evidence of SBP on paracentesis ?? Given his history of TAVR, PPM, he is at high risk of infective endocarditis. ??Underwent TTE, willawait results??however even if it is negative,??will recommend to??proceed with a LISANDRA Since he has positive blood cultures??with associated osteomyelitis, we do not need to??do a diagnostic tap on the spine. ??Neurosurgery has already evaluated the patient and there is no plan for surgical intervention He has??some hardware in his lumbar spine,??he does not have any??worsening pain in that region??and thus we will just monitor clinically ?? Recommendations -Continue ceftriaxone -Await results of TTE,??if??no evidence of??endovascular/PPM involvement, he will still need a transesophageal echocardiogram -Do not need diagnostic??tap??for cervical spine -Monitor??patient for??pain in his lumbar region clinically -Duration of antibiotics??will be at least 6 weeks??given the osteo/epidural phlegmon ? ID to follow ? Case discussed with Dr Harrison Recommendations communicated to primary team via cortext ? Janay Colorado MD PGY 4 Infectious disease? Histories Allergies Allergies ?(Active and Proposed Allergies Only) TiZANidine Hydrochloride? (Severity: Unknown severity, Onset: Unknown) ?Reactions: hallucination pregabalin? (Severity: Unknown severity, Onset: Unknown) ?Reactions: hallucination lisinopril? (Severity: Unknown severity, Onset: Unknown) ?Reactions: throat swelling ?Comments: throat swelling Latex? (Severity: Unknown severity, Onset: Unknown) ?Reactions: Rash Contrast Dye? (Severity: Unknown, Onset: Unknown) ?Reactions: Unknown ? Past Medical History/Problem List Active Problems??(13) CAD (coronary artery disease), LAD CHF (congestive heart failure) Diabetes mellitus type 2, insulin Essential hypertension Hyperlipidemia Iron deficiency anemia Neuropathy Obese class I Old myocardial infarction, NSTEMI, s/p ZORA ANUJA on CPAP Pericardial effusion, s/p pericardiocentesis Prostate cancer Pulmonary HTN ? Past Surgical History Cardiac catheterization: 02/10/19 Echocardiogram: 09/16/18 Cardiac catheterization w/ZORA to OTW: 08/01/13 Endoscopy: 2011 Pericardiocentesis w/pericardial window: 2005 Trigger finger release of right middle finger ? Social History Alcohol Details:??Use: Never. Home/Environment Details:??Living situation: Home/Independent. ??Lives with: Spouse. Substance Abuse Details:??Use: Never. Tobacco Details:??Use: Never (less than 100 in lifetime). Electronic Cigarette/Vaping Details:??Electronic Cigarette Use: Never. ? Family History No family history recorded. ? [facility] ?? Medications Inpatient Medications Medications (25) Active SCHEDULED: (15) Albumin Human 25% IVPB (50 mL) (Albumin 25% 50 mL Bolus) ??50 mL, IVPB, Every 12 hours Aspirin 81 mg EC Tablet (aspirin 81 mg oral delayed release tablet) ??81 mg, By Mouth, Daily Atorvastatin 80 mg Tablet (Lipitor 80 mg oral tablet) ??80 mg, By Mouth, Daily Bethanechol 25 mg Tablet (bethanechol 25 mg oral tablet) ??25 mg, By Mouth, 2 times a day Ceftriaxone 2 Gm Inj (Ceftriaxone Inj) ??2 Gm, IVPB, Every 24 hours Enoxaparin 40 mg Inj (Enoxaparin Inj) ??40 mg 0.4 mL, Subcutaneous Injection, Daily Finasteride 5 mg Tablet (finasteride 5 mg oral tablet) ??5 mg, By Mouth, Daily Gabapentin 400 mg Capsule (gabapentin 400 mg oral capsule) ??400 mg, By Mouth, Daily at bedtime Insulin Glargine 100 units/mL Inj (Insulin Glargine Inj) ??10 units 0.1 mL, Subcutaneous Injection,Daily at bedtime Insulin Lispro 100 units/mL Inj (3mL) (Insulin LISPRO Sliding Scale) ??2-22 units, Subcutaneous Injection, 3 times a day before meals Lidocaine 5% Topical Patch (Lidocaine 5% Patch) ??1 each, Topically, Daily Midodrine 5 mg Tablet (midodrine 5 mg oral tablet) ??10 mg, By Mouth, 3 times a day Pantoprazole 20 mg EC Tablet (pantoprazole 20 mg oral delayed release tablet) ??20 mg, By Mouth, Daily Remove Patch (Remove Lidocaine Patch) ??1 each, Topically, Daily at bedtime Tamsulosin 0.4 mg Capsule (tamsulosin 0.4 mg oral capsule) ??0.4 mg, By Mouth, Daily CONTINUOUS: (0) PRN: (10) Acetaminophen 325 mg Tablet (Acetaminophen Tablet) ??325 mg, By Mouth, Every 4 hours Al hydroxide/Mg hydroxide/simethicone 200 mg-200 mg-20 mg/5 mL Susp UD (Maalox Plus Liquid) ??30 mL, By Mouth, Every 8 hours Dextrose Inj Syringe (Dextrose 50% Inj Syringe (25Gm)) ??12.5 Gm, IV Push Slowly, Every 20 minutes Dextrose Inj Syringe (Dextrose 50% Inj Syringe (25Gm)) ??25 Gm, IV Push Slowly, Every 15 minutes Glucagon 1 mg Inj (Glucagon Inj) ??1 mg, Intramuscular, Once Glucose 40% Gel (15 Gm) (Glucose Gel) ??15 Gm, By Mouth, Every 20 minutes Glucose 40% Gel (15 Gm) (Glucose Gel) ??30 Gm, By Mouth, Every 20 minutes Melatonin 3 mg Tablet (Melatonin Tablet) ??9 mg, By Mouth, Daily at bedtime Nitroglycerin 0.4 mg Sublingual Tablet (Nitroglycerin 0.4mg Sublingual Tablet) ??0.4 mg, Sublingual, Once TraMADOL 50 mg Tablet (traMADol 50 mg oral tablet) ??50 mg, By Mouth, Every 6 hours ? 72 Hour Antibiotic History Active Antibiotics Calendar Day Last Administered First Administered Ceftriaxone??2 Gm, 100 mL/hr, IVPB, Every 24 hours ?3 01/26/2023 13:32 01/25/2023 10:28 ? Results ? Microbiology ?? COVID-19 (Novel Coronavirus), Rapid PCR?? Completed?? Source: Nasal Body Site: Nose Collected Dt/Tm: 01/21/2023 16:04 Last Updated Dt/Tm: 01/21/2023 17:13 Blood Culture #2?? Completed?? Source: Blood Body Site: ?? Collected Dt/Tm: 01/24/2023 11:15 Last Updated Dt/Tm: 01/24/2023 11:15 ?SPECIMEN DESCRIPTION : BLOOD NO SITESPECIAL REQUESTS : NONECULTURE : STREPTOCOCCUS PARASANGUINIS ??This isolate was identified using Maldi-TOF ? system FOR SUSCEPTIBILITY RESULT REFER TO BLOOD CULTURE ?Streptococcus species was identified by multiplex PCR.REPORT STATUS : FINAL 01/27/2023 Blood Culture?? Completed?? Source: Blood Body Site: ?? Collected Dt/Tm: 01/24/2023 11:15 Last Updated Dt/Tm: 01/24/2023 11:15 ?SPECIMEN DESCRIPTION : BLOOD L ARMSPECIAL REQUESTS : CRITICAL VALUE CALLED AND VERIFIED BY READBACK FOR: GRAM POSITIVE COCCI ? TO [id number],M6,01/25 AT 0750 BY Prylos 155CULTURE : STREPTOCOCCUS PARASANGUINIS ??This isolate was identified using Maldi-TOF ? systemREPORT STATUS :FINAL 01/27/2023ORGANISM ? STREPTOCOCCUS PARASANGUINIS ??This isolate was ? identified using Maldi-TOF systemMETHOD ? MIN. INHIB. CONC. (MCG/ML)PENICILLIN ? SUSCEPTIBLE ? * Hunter ROONEY, Toño Meyer: PERFORM Event Display: Consult Authored Date: H+P/labs reviewed. Consulted for Strep bacteremia,??cervical vertebral osteomyelitis and epidural phlegmon in the background of TAVR and PPM.??Events noted. Patient was seen and examined with Dr. Colorado on the day of consultation. ??I agree with her findings and plans as below. Will follow pt. with you.?? History and physical note * Laurita ROONEY, Christopher Reilly: PERFORM Event Display: History and Physical Hospital Authored Date: Patient: ??GILLES WRIGHT ? Age:??77 Years?Sex:??Male?:??1945?? Chief Complaint/Reason for Consultation Chronic neck pain, general weakness History of Present Illness 77-year-old male past medical history of severe aortic stenosis status post TAVR are in 2019, CAD, history of prostate cancer, complete heart block status post pacemaker in 2019, type 2 diabetes, hyperlipidemia, esophageal varices without bleeding, GERD, hypertension, IBS, coming with c/o general weakness.?? Patient was at [facility] recently for chronic neck pain and had extensive work up.Neurosurgery evaluated and suggested no indication for surgery. Treated with a course of steroid. Patient is now coming with geneneralized weakness. ER did serial little montez was 32---47; Never had chest pain.??Reuqetsed admission for OREN r/o vs NSTEMI. Patient kimble snot have any chest pain or sob. He??is being admitted for OREN r/o Review of Systems Constitutional: No fever or chills, generalized weakness ENT: No sore throat or nasal congestion, chronic neck pain Respiratory: No shortness of breath or cough??. Cardiovascular: No chest pain or??palpitation. Gastrointestinal: No nausea, vomiting or diarrhea. Skin: No rash or lesion Neurology: No speech problem no vision problem no focal weakness, no dizziness. Psychiatric: Cooperative, normal mood and affect Objective Vital Signs?? Temperature: 98.9 DegF (01/22/23 06:50:00) Temperature Route: Oral (01/22/23 06:50:00) Pulse Rate:??100 bpm??High (01/22/23 09:49:00) Respiratory Rate: 21 br/min (01/22/23 10:48:00) Systolic Blood Pressure: 111 mm Hg (01/22/23 09:49:00) Diastolic Blood Pressure: 62 mm Hg (01/22/23 09:49:00) Blood pressure sites: Arm, left (01/22/23 09:49:00) Mean Arterial Pressure: 73 mm Hg (01/21/23 15:28:00) Pulse Pressure: 66 mm Hg (01/22/23 06:50:00) Oxygen Saturation: 94 % (01/22/23 09:49:00) Mode of Delivery (Oxygen): Room air (01/22/23 09:49:00) Early Warning Score: 7 (01/22/23 11:56:49) ? Physical Exam Assessment/Plan 77-year-old male past medical history of severe aortic stenosis status post TAVR are in 2019, CAD, history of prostate cancer, complete heart block status post pacemaker in 2019, type 2 diabetes, hyperlipidemia, esophageal varices without bleeding, GERD, hypertension, IBS, coming with c/o general weakness and neck pain. Mild elevation of trop 47. ER requested admission for ACS r/o ? Generalized weakness Chronic neck pain ?? Mild elevation of trop 32---- 47 Patient does not have any CP or SOB ?? Do not think ACS or NSTEMI ? Plan: Will continue ??ASA , plavix, BB Cardiology consult ?? Genarallized weakness No focal deficit Worked up and evaluated by neuro surgery at [facility] ?? No further neuro w/up now PT eval May need placement ? DM2: Will continue LAntus and SSI hold metformin ? Diet:??cardiac?? diabetic diet ? DVT prophylaxis:??Pneumo boot no AC due to lowplt (chronic) ?? Code: Full ? Histories Allergies Allergies ?(Active and Proposed Allergies Only) TiZANidine Hydrochloride? (Severity: Unknown severity, Onset: Unknown) ?Reactions: hallucination pregabalin? (Severity: Unknown severity, Onset: Unknown) ?Reactions: hallucination lisinopril? (Severity: Unknown severity, Onset: Unknown) ?Reactions: throat swelling ?Comments: throat swelling Latex? (Severity: Unknown severity, Onset: Unknown) ?Reactions: Rash Contrast Dye? (Severity: Unknown, Onset: Unknown) ?Reactions: Unknown ? Past Medical History/Problem List Active Problems??(13) CAD (coronary artery disease), LAD CHF (congestive heart failure) Diabetes mellitus type 2, insulin Essential hypertension Hyperlipidemia Iron deficiency anemia Neuropathy Obese class I Old myocardial infarction, NSTEMI, s/p ZORA ANUJA on CPAP Pericardial effusion, s/p pericardiocentesis Prostate cancer Pulmonary HTN ? Past Surgical History Cardiac catheterization: 02/10/19 Echocardiogram: 09/16/18 Cardiac catheterization w/ZORA to OTW: 08/01/13 Endoscopy: 2011 Pericardiocentesis w/pericardial window: 2005 Trigger finger release of right middle finger ? Social History Alcohol Details:??Use: Never. Home/Environment Details:??Living situation: Home/Independent. ??Lives with: Spouse. Substance Abuse Details:??Use: Never. Tobacco Details:??Use: Never (less than 100 in lifetime). Electronic Cigarette/Vaping Details:??Electronic Cigarette Use: Never. ? Family History No family history recorded. ? Medications Home Medications Alprazolam (ALPRAZolam 0.5 mg oral tablet)?0.5?Milligram?1?tablet?By Mouth?2 times a day?as needed?as needed for anxiety Aspirin (aspirin 81 mg oral delayed release tablet)?81?Milligram?1?tablet?By Mouth?Daily?Do not start aspirin until 06/16/2022 Atorvastatin (Lipitor 80 mg oral tablet)?1?tab(s)?80?Milligram?By Mouth?Daily Bethanechol (bethanechol 25 mg oral tablet)?25?Milligram?1?tablet?By Mouth?2 times a day Clopidogrel (clopidogrel 75 mg oral tablet)?75?Milligram?1?tablet?By Mouth?Daily dapagliflozin (Farxiga 10 mg oral tablet)?1?tab(s)?10?Milligram?By Mouth?Daily Dexamethasone (dexamethasone 4 mg oral tablet)?1?tab(s)?4?Milligram?By Mouth?2 times a day?for 14?Days?D/C BY [facility] ON ??01/10/23 dulaglutide (Trulicity Pen 0.75 mg/0.5 mL subcutaneous solution)?0.5?Milliliter?0.75?Milligram?Subcutaneous Injection?Every week?EVERY THURSDAY Ezetimibe (Zetia 10 mg oral tablet)?1?tab(s)?10?Milligram?By Mouth?Daily Ferrous Sulfate (ferrous sulfate 325 mg oral enteric coated tablet)?325?Milligram?1?tablet?By Mouth?Daily Finasteride (finasteride 5 mg oral tablet)?1?tab(s)?5?Milligram?By Mouth?Daily?(LAST FILLED 10/03/22) Gabapentin (gabapentin 400 mg oral capsule)?400?Milligram?1?capsule?By Mouth?3 times a day Insulin Aspart (NovoLOG FlexTouch)?See Instructions?2-25 units Subcutaneous Injection 3 timesa day before meals and bedtime insulin degludec (Tresiba FlexTouch)?64?unit(s)?Subcutaneous Injection?Daily at bedtime Metformin (metformin 1000 mg oral tablet)?1?tab(s)?1,000?Milligram?By Mouth?2 times a day?(LAST FILLED 10/03/22) Metoprolol (Metoprolol Succinate ER 100 mg oral tablet, extended release)?1?tab(s)?100?Milligram?By Mouth?Daily Omeprazole (omeprazole 20 mg oral enteric coated capsule)?1?capsule?20?Milligram?By Mouth?2 times a day Oxycodone (oxyCODONE 5 mg oral tablet)?5?Milligram?1?tablet?By Mouth?Every 6 hours?as needed?D/C BY [facility] 01/10/23?as needed for pain Sucralfate (sucralfate 1 gm oral tablet)?1?gram?1?tablet?By Mouth?2 times a day before breakfast and dinne?(LAST FILLED 04/21/22) Tamsulosin (tamsulosin 0.4 mg oral capsule)?0.4?Milligram?1?capsule?By Mouth?Daily?(LAST FILLED 10/01/22) torsemide (torsemide 20 mg oral tablet)?1?tab(s)?20?Milligram?By Mouth?Daily Tramadol (traMADol 50 mg oral tablet)?0.5?tab(s)?25?Milligram?By Mouth?Every 6 hours?as needed?as needed for pain ? Results Recent Labs BLOOD COUNT & DIFF WBC 6.4 k/mm3 ()?? 01/21/2023 20:06 RBC 3.21 m/mm3 (Low)?? 01/21/2023 20:06 Hgb 9.7 Gm/dL (Low)?? 01/21/2023 20:06 Hct 30.3 % (Low)?? 01/21/2023 20:06 MCV 94.4 femtoliters (High)?? 01/21/2023 20:06 MCH 30.2 pg ()?? 01/21/2023 20:06 MCHC 32.0 g/dL (Low)?? 01/21/2023 20:06 Platelet Count 86 k/mm3 (Low)?? 01/21/2023 20:06 RDW-SD 53.8 femtoliters (High)?? 01/21/2023 20:06 MPV 10.2 femtoliters ()?? 01/21/2023 20:06 Nucleated RBC (Automated) 0.0 #/100 WBC'S ()?? 01/21/2023 20:06 Abs. NRBC 0.0 k/mm3 ()?? 01/21/2023 20:06 Abs. Neut 5.3 k/mm3 ()?? 01/21/2023 20:06 Abs. Lymph 0.3 k/mm3 (Low)?? 01/21/2023 20:06 Abs. Dawson 0.6 k/mm3 ()?? 01/21/2023 20:06 Abs. Eo 0.1 k/mm3 ()?? 01/21/2023 20:06 Abs. Baso 0.0 k/mm3 ()?? 01/21/2023 20:06 Neut % 82.6 % (High)?? 01/21/2023 20:06 Lymph % 4.9 % (Low)?? 01/21/2023 20:06 Dawson % 10.0 % ()?? 01/21/2023 20:06 Eos % 1.6 % ()?? 01/21/2023 20:06 Baso % 0.3 % ()?? 01/21/2023 20:06 Imm Gran 0.6 % ()?? 01/21/2023 20:06 Abs. Imm Gran 0.0 k/mm3 ()?? 01/21/2023 20:06 ?? CARDIAC High Sensitivity Troponin (HSTnT) 47 ng/L (High)?? 01/22/2023 08:45 ?? CHEM GENERAL Sodium 139 mmol/L ()?? 01/21/2023 20:06 Potassium 3.7 mmol/L ()?? 01/21/2023 20:06 Chloride 104 mmol/L ()?? 01/21/2023 20:06 Bicarbonate Level 25 mmol/L ()?? 01/21/2023 20:06 Anion Gap 10 ()?? 01/21/2023 20:06 Glucose Level 159 mg/dL (High)?? 01/21/2023 20:06 Glucose, POC 127 mg/dL (High)?? 01/22/2023 09:01 BUN 23 mg/dL ()?? 01/21/2023 20:06 Creatinine-Blood 1.1 mg/dL ()?? 01/21/2023 20:06 Estimated GFR Creatinine 68 ML/MIN/1.73 M2 ()?? 01/21/2023 20:06 Calcium 8.2 mg/dL (Low)?? 01/21/2023 20:06 Magnesium 2.1 mg/dL ()?? 01/21/2023 20:06 Protein, Total 5.5 Gm/dL (Low)?? 01/21/2023 20:06 Albumin 2.4 Gm/dL (Low)?? 01/21/2023 20:06 AG Ratio 0.8 ()?? 01/21/2023 20:06 Alkaline Phosphatase 273 units/L (High)?? 01/21/2023 20:06 AST (SGOT) 39 units/L ()?? 01/21/2023 20:06 ALT (SGPT) 58 units/L (High)?? 01/21/2023 20:06 Bilirubin, Total 1.0 mg/dL ()?? 01/21/2023 20:06 ?? ENDOCRINE/TUMOR MARKER TSH 2.54 uIU/mL ()?? 01/21/2023 20:06 ?? UA/URINALYSIS Appear/Color, Urine YELLOW ()?? 01/22/2023 06:17 Specific [place], Urine 1.022 ()?? 01/22/2023 06:17 pH, Urine 6.0 ()?? 01/22/2023 06:17 Albumin, Urine TRACE (Abnormal)?? 01/22/2023 06:17 Glucose, Urine 4+ (Abnormal)?? 01/22/2023 06:17 Ketones, Urine NEGATIVE ()?? 01/22/2023 06:17 Bilirubin, Urine NEGATIVE ()?? 01/22/2023 06:17 Hemoglobin, Urine NEGATIVE ()?? 01/22/2023 06:17 Nitrite, Urine NEGATIVE ()?? 01/22/2023 06:17 Leukocyte, Urine NEGATIVE ()?? 01/22/2023 06:17 Urobilinogen NORMAL mg/dL ()?? 01/22/2023 06:17 WBC's, Urine 2 /HPF ()?? 01/22/2023 06:17 RBC's, Urine 1 /HPF ()?? 01/22/2023 06:17 Bacteria SLIGHT HPF (Abnormal)?? 01/22/2023 06:17 Squamous Epith 2 /HPF ()?? 01/22/2023 06:17 Mucus SLIGHT /LPF ()?? 01/22/2023 06:17 Hold Urine Culture Testing available 48 hours from time of collection. ()?? 01/22/2023 06:17 ?? VIROLOGY COVID-19 by RT-PCR NEGATIVE ()?? 01/21/2023 16:11 ? EKG study * Event Display: EKG Authored Date: * Event Display: ECG 12-Lead Authored Date: Please click on pdf link to open report * Event Display: ECG 12-Lead Authored Date: Ventricular Rate: 89 BPM Atrial Rate: 89 BPM P-R Interval: 260 ms QRS Duration: 112 ms Q-T Interval: 406 ms QTC Calculation(Bazett): 493 ms P [place]: 60 degrees R [place]: -43 degrees T [place]: -14 degrees Atrial-sensed ventricular-paced rhythm with prolonged AV conduction Abnormal ECG When compared with ECG of 08-JUN-2022 11:32, Electronic ventricular pacemaker has replaced Idioventricular rhythm Vent. rate has increased BY 57 BPM Confirmed by SOLEDAD BRYANT MD ([id number]) on 01/24/2023 12:55:17 PM [place]: SOLEDAD BRYANT MD Heart * Event Display: Echocardiogram - Complete Authored Date: [id number] Transthoracic Echocardiography Report (TTE) Patient Demographics Patient Name GILLES WRIGHT Date of Study 01/27/2023 Corporate Gender Male Facility Race Ethnicity Date of 1945 Height: 68.9 inches Age 77 year(s) Weight: 207.24 pounds Accession Number [id number] BSA: 2.09 m2 Room Number M611 BMI: 30.69 kg/m2 Referring Physician Roxie Elder MD Interpreting [place] Mach[place], Physician Freight Car [employer] Farzana Hammer [facility] Indications Bacteremia. Clinical History Aortic stenosis TAVR Coronary artery disease. Pacemaker. Diabetes Mellitus. Hyperlipidemia. Congestive heart failure. Hypertension. ANUJA Pulmonary hypertension. Obesity. Study Data Type of Study TTE procedure:Echo Complete-Doppler, Colorflow, M-Mode. Study Date01/27/2023 Start Time: 09:28 AM Study Location: [facility] [place] Adult Echo Study Status: Echo lab Patient Status: Routine Technical Quality: Technically difficult due to body habitus. Blood Pressure:101/49 mmHg EKG: Normal sinus rhythm HR: 69 bpm Allergies - Contrast. - Lisinopril. - Latex. - Other allergy:(pregabalin & tinidine HCL). 2D Measurements LV Diastolic Dimension: 5.4 cm LV Systolic Dimension: 2.9 cm LV Septum Diastolic: 1.4 cm LV PW Diastolic: 1.4 cm LA ESV (BP):111 ml LA ESV Index: 53 ml/m2 LVOT Stroke Volume: 132.6 ml LVOT: 2.2 cm Stroke Volume Index63.44 ml/m2 Ascending Aorta:3.2 cm Cardiac Index:4.38 l/min/m2 Doppler Measurements AV Peak Velocity: 283 cm/s MV Peak E-Wave: 130 cm/s AV Peak Gradient: 32.04 mmHg MV Peak A-Wave: 141 cm/s AV Mean Gradient: 19 mmHg MV E/A Ratio: 0.92 AV VTI:60 cm MV P1/2t: 91 msec LVOT Peak Velocity: 182 cm/s LVOT VTI34.9 cm MV Deceleration Time: 311 msec AV Area (Continuity):2.21 cm2 MV Area (PHT): 2.42 cm2 TR Velocity:291 cm/s TR Gradient:33.87 mmHg Estimated RAP:3 mmHg Estimated RVSP: 36.9 mmHg E' Septal Velocity: 4.24 cm/s E' Lateral Velocity: 5.11 cm/s E/Med E':30.29826 E/Lat E':25.54298 Cardiac Anatomy Left Ventricle/Interventricular Septum The left ventricle is mild to moderately dilated. The left ventricular wall thickness is moderately increased in a pattern of concentric hypertrophy. The LV systolic function is vigorous. LVEF visually estimated at 70 to 75%. No definite LV regional wall motion abnormalities. Grade II diastolic dysfunction with elevated left atrial pressure. Left Atrium/Interatrial Septum The left atrium is severely dilated. Aortic Valve There is a normally functioning bioprosthesis well-seated in the aortic position (26mm Leone Karlee 3 Ultra). Trace paravalvular aortic regurgitation. No central aortic regurgitation. There is no prosthetic aortic stenosis; peak velocity and mean gradient are mildly elevated in the setting of vigorous LV systolic function and increased stroke-volume. Mitral Valve The mitral valve and subvalvular apparatus appear moderately thickened. The mitral valve chordal apparatus is mildly thickened. There is no significant mitral stenosis. There is mild mitral regurgitation. No mitral stenosis. Aorta The ascending aorta and aortic root are normal in size. Right Ventricle The right ventricular size and function appear grossly normal. Right Atrium The right atrium is dilated. Pulmonic Valve The pulmonic valve is poorly visualized. There is trace pulmonic regurgitation. Tricuspid Valve The tricuspid valve is poorly visualized. There is mild tricuspid regurgitation. Pumonary Artery The pulmonary artery systolic pressure estimation is mildly elevated, 37 mmHg. Venous Structures The inferior vena cava size is normal with normal inspiratory collapse. The central venous pressure estimation is normal, 3mmHg. Pericardium/Extracardiac There is no significant pericardial effusion. Summary The left ventricle is mild to moderately dilated. The left ventricular wall thickness is moderately increased in a pattern of concentric hypertrophy. The LV systolic function is vigorous. LVEF visually estimated at 70 to 75%. No definite LV regional wall motion abnormalities. Grade II diastolic dysfunction with elevated left atrial pressure. The right ventricular size and function appear grossly normal. The left atrium is severely dilated. The right atrium is dilated. There is a normally functioning bioprosthesis well-seated in the aortic position (26mm Leone Karlee 3 Ultra). There is mild mitral regurgitation. There is mild tricuspid regurgitation. Normal CVP estimate. The pulmonary artery systolic pressure estimation is mildly elevated, 37 mmHg. Comparison Comparison is made to the study of June 03, 2022. Central venous and pulmonary artery systolic pressure estimations are lower now. Signature * Event Display: Echocardiogram - Complete Authored Date: [id number] Cardiology * Event Display: Cardiac Rhythm Strips Authored Date: Hospital Progress note * Adelaida Xavier RN: PERFORM, SIGN, VERIFY Event Display: Progress Note Hospital Authored Date: [id number] Patient: GILLES WRIGHT Age: 77 years Sex: Male : 1945 Associated Diagnoses: None Author: Adelaida Xavier RN Discharge Plan Case Management Discharge Plan : Case Management Discharge Plan Data 02/07/2023 13:31 EDT Discharge Level of Care at Discharge Homehealth/VNA Discharge VNA/Hospice/Home Care [facility] [place] Discharge Medical Equipment Companies [place] [facility] [phone] Name of Agency #1 [facility] Name of Agency #1 [facility] Service Categories #1 [facility] Start Date and Time #1 02/08/2023 14:00 Service Comments #1 [facility] to come prior to Antibiotics being due for first visit. Service Categories #2 Home IV antibiotics Service Comments #2 Someone from [facility] will be calling to set up delivery sometimes prior to 2 pm on Thursday * Charmaine ROONEYBradford: PERFORM, SIGN, VERIFY Event Display: Progress Note Hospital Authored Date: [id number] Patient: GILLES WRIGHT Age: 77 years Sex: Male : 1945 Associated Diagnoses: None Author: Bradford Montano MD Overnight Events: Off of continuous bladder irrigation, urine remains pink-tinged./Straw-colored Chronic Problems: CAD (coronary artery disease), LAD Old myocardial infarction, NSTEMI, s/p ZORA Prostate cancer CHF (congestive heart failure) Pericardial effusion, s/p pericardiocentesis Diabetes mellitus type 2, insulin Essential hypertension Hyperlipidemia Iron deficiency anemia Neuropathy ANUJA on CPAP Obese class I Pulmonary HTN Medications: Medication List Active Medications Ordered Acetaminophen: 325 mg, By Mouth, Every 4 hours, PRN: Pain , Mild. Al Hydroxide/Mg Hydroxide/Simethicone: 30 mL, By Mouth, Every 8 hours, PRN: Indigestion. Aspirin: 81 mg, By Mouth, Daily. Atorvastatin: 80 mg, tablet, By Mouth, Daily. Bethanechol: 25 mg, tablet, By Mouth, 2 times a day. Carvedilol: 6.25 mg, By Mouth, 2 times a day. Ceftriaxone: 2 Gm, 100 mL/hr, IVPB, Every 24 hours. Cyanocobalamin: 1,000 mcg, By Mouth, Daily. Dextrose 50% in Water: 12.5 Gm, IV Push Slowly, Every 20 minutes, PRN: Blood Glucose. Dextrose 50% in Water: 25 Gm, IV Push Slowly, Every 15 minutes, PRN: Blood Glucose. Finasteride: 5 mg, By Mouth, Daily. Folic Acid: 1 mg, By Mouth, Daily. Furosemide: 60 mg, By Mouth, Daily. Gabapentin: 400 mg, By Mouth, Daily at bedtime. Glucagon: 1 mg, Intramuscular, Once, PRN: Other. Glucose: 15 Gm, By Mouth, Every 20 minutes, PRN: Blood Glucose. Glucose: 30 Gm, By Mouth, Every 20 minutes, PRN: Blood Glucose. heparin flush: 50 units, 5 mL, IV Push, Daily. heparin flush: 50 units, 5 mL, IV Push, Every hour, PRN: Line/Tube Patency. Insulin Glargine: 10 units, 0.1 mL, Subcutaneous Injection, Daily at bedtime. Insulin Lispro: 2-22 units, Subcutaneous Injection, 3 times a day before meals. Lidocaine Topical: 1 each, Topically, Daily. Melatonin: 9 mg, By Mouth, Daily at bedtime, PRN: Sleep. Midodrine: 10 mg, By Mouth, 3 times a day. Nitroglycerin: 0.4 mg, Sublingual, Once, PRN: Chest Pain. Pantoprazole: 20 mg, By Mouth, Daily. Remove Patch: 1 each, Topically, Daily at bedtime. Sodium Chloride: 5 mL, IV Push, Daily. Sodium Chloride: 5 mL, IV Push, Every hour, PRN: Line/Tube Patency. Spironolactone: 150 mg, By Mouth, Daily. Tamsulosin: 0.4 mg, capsule, By Mouth, Daily. Tramadol: 50 mg, By Mouth, Every 6 hours, PRN: Pain , Severe. Prescribed Aspirin: 81 mg, 1 tablet, By Mouth, Daily, Do not start aspirin until 06/16/2022, 30 tablet, 0 Refill(s). Atorvastatin: 80 mg, 1 tablet, By Mouth, Daily, 90 tablet, 0 Refill(s). Documented Alprazolam: 0.5 mg, 1 tablet, By Mouth, 2 times a day, PRN: as needed for anxiety, 0 Refill(s). Bethanechol: 25 mg, 1 tablet, By Mouth, 2 times a day, 0 Refill(s). Clopidogrel: 75 mg, 1 tablet, By Mouth, Daily, 0 Refill(s). dapagliflozin: 10 mg, 1 tablet, By Mouth, Daily, 0 Refill(s). Dexamethasone: 4 mg, 1 tablet, By Mouth, 2 times a day, for 14 days, D/C BY [facility] ON 01/10/23, 28 tablet, 0 Refill(s). dulaglutide: 0.75 mg, 0.5 mL, Subcutaneous Injection, Every week, EVERY THURSDAY, 0 Refill(s). Ezetimibe: 10 mg, 1 tablet, By Mouth, Daily, 0 Refill(s). Ferrous Sulfate: 325 mg, 1 tablet, By Mouth, Daily, 0 Refill(s). Finasteride: 5 mg, 1 tablet, By Mouth, Daily, (LAST FILLED 10/03/22). Gabapentin: 400 mg, 1 capsule, By Mouth, 3 times a day, 0 Refill(s). Insulin Aspart: See Instructions, 2-25 units Subcutaneous Injection 3 times a day before meals and bedtime, 0 Refill(s). insulin degludec: 64 units, Subcutaneous Injection, Daily at bedtime, 0 Refill(s). Metformin: 1,000 mg, 1 tablet, By Mouth, 2 times a day, (LAST FILLED 10/03/22), 0 Refill(s). Metoprolol: 100 mg, 1 tablet, By Mouth, Daily. Omeprazole: 20 mg, 1 capsule, By Mouth, 2 times a day. Oxycodone: 5 mg, 1 tablet, By Mouth, Every 6 hours, D/C BY [facility] 01/10/23, PRN: as needed for pain, 0 Refill(s). Sucralfate: 1 Gm, 1 tablet, By Mouth, 2 times a day before breakfast and dinne, (LAST FILLED 04/21/22), 0 Refill(s). Tamsulosin: 0.4 mg, 1 capsule, By Mouth, Daily, (LAST FILLED 10/01/22), 0 Refill(s). torsemide: 20 mg, 1 tablet, By Mouth, Daily, 0 Refill(s). Tramadol: 25 mg, 0.5 tablet, By Mouth, Every 6 hours, PRN: as needed for pain, 0 Refill(s). Medications Inactivated in the Last 72 Hours Ceftriaxone: 2 Gm, 100 mL/hr, IVPB, Every 24 hours. Enoxaparin: 40 mg, 0.4 mL, Subcutaneous Injection, Daily. Furosemide: 40 mg, 4 mL, IV Push Slowly, Daily. Lidocaine: 5 mL, Intradermal, Once. Physical Exam: Temperature 98.2 (08:15) Systolic Blood Pressure 117 (08:15) Diastolic Blood Pressure 50 (08:15) Pulse 62 (08:15) SpO2 98 (08:15) Respiratory Rate 18 (08:15) Gen: Well appearing HEENT: Moist oral mucosa, PERRL, no conjunctival irritation PULM: CTA COR: RRR, no murmur Abd: Soft, nontender, nondistended, + BS Skin: No rash Neuro: Alert Meier catheter with straw-colored urine Procedure note: Meier catheter balloon was deflated and Meier catheter uneventfully removed Assessment & Plan: Complex genitourinary history as seen per previous notes, with recent gross hematuria and potentialurinary retention. Given his abdominal ascites, it is unclear if he was actually in florid urinary retention, but he did have significant hematuria which is now cleared. I strongly recommend given the patient's history of prostate cancer status post radiation therapy, we avoid placement of catheteragain unless the patient is in excruciating discomfort from inability to void. I suspect he will void normally as the bleeding has stopped and the patient has no acute issues. Urology will sign off at this time, the patient will follow-up with outpatient urologist in the future who is located at [place]. * Roxie ROONEY, Susu: PERFORM Event Display: Progress Note Hospital Authored Date: [id number] Patient: ??GILLES WRIGHT ? Age:??77 Years?Sex:??Male?:??1945?? Subjective Ongoing hematuria with 1 clot causing significant bladder spasm and pain need manual irrigation. Morning labs reviewed H/H below 7, anticipate ongoing drop due to hematuria will transfuse 1 unit PRBC, chem7 stable will titrate Lasix/Aldactone. Patient is currently symptoms free, we discussed due toongoing hematuria not able to be cleared up by [facility] will consult urology, all questions answered to his satisfaction. Review of Systems Constitutional:??No weight loss, fever, chills, weakness or fatigue. Cardiovascular:??no chest pain Respiratory:??No shortness of breath, cough or sputum production. Gastrointestinal:??No anorexia, nausea, vomiting or diarrhea. No abdominal pain or blood in stool. Genitourinary:??No burning micturition. No urinary frequency or incontinence. Bladder spasm. Neurologic:??No headache, dizziness, syncope, unilateral weakness, ataxia, numbness or tingling in the extremities. No change in bowel or bladder control. Musculoskeletal:??No muscle pain, back pain, joint pain or stiffness. Allergies Allergies ?(Active and Proposed Allergies Only) TiZANidine Hydrochloride? (Severity: Unknown severity, Onset: Unknown) ?Reactions: hallucination pregabalin? (Severity: Unknown severity, Onset: Unknown) ?Reactions: hallucination lisinopril? (Severity: Unknown severity, Onset: Unknown) ?Reactions: throat swelling ?Comments: throat swelling Latex? (Severity: Unknown severity, Onset: Unknown) ?Reactions: Rash Contrast Dye? (Severity: Unknown, Onset: Unknown) ?Reactions: Unknown ? Objective Measurements?? Height: 175 cm (02/06/23) Weight: 94 kg (01/23/23) Dry Weight: 94 kg (01/23/23) Body Mass Index:??30.69 kg/m2??Critical (01/23/23) ? Vital Signs?? Temperature: 97.7 DegF (02/06/23 12:08:00) Temperature Route: Oral (02/06/23 12:08:00) Pulse Rate: 66 bpm (02/06/23 13:58:00) Respiratory Rate: 18 br/min (02/06/23 12:08:00) Systolic Blood Pressure: 104 mm Hg (02/06/23 13:58:00) Diastolic Blood Pressure:??42 mm Hg??Low (02/06/23 13:58:00) Blood pressure sites: Arm, left (02/06/23 12:08:00) Mean Arterial Pressure: 66 mm Hg (02/06/23 12:08:00) Pulse Pressure: 44 mm Hg (02/06/23 12:08:00) Oxygen Saturation: 99 % (02/06/23 12:08:00) Mode of Delivery (Oxygen): Room air (02/06/23 12:08:00) FiO2: 21 % (02/06/23 04:27:00) Early Warning Score: 5 (02/06/23 14:03:39) ? Perfusion Assessment Cardiac Rhythm: Paced (02/06/23 09:00:00) Cardiovascular: WNL except (02/06/23 09:00:00) Dorsalis Pedis Pulse, Left: Normal (02/06/23 09:00:00) Dorsalis Pedis Pulse, Right: Normal (02/06/23 09:00:00) Radial Pulse, Left: Normal (02/06/23 09:00:00) Radial Pulse, Right: Normal (02/06/23 09:00:00) ? Pain Scores Pain relief acceptable: Yes (22:02) ? Ventilator Settings?? FiO2: 21 % (04:27) ? Intake/Output? 01/23 13:09 02/06 07:00 02/05 07:00 02/04 07:00 02/03 07:00 ?? 02/06 14:30 02/06 14:30 02/06 06:59 02/05 06:59 02/04 06:59 Intake ?48638 ? 3020 ?46976 ? 1840 ?200 Output ?47123 ? 4200 ?61823 ? 3000 ? 2000 Net Total ? -32797 ?-1180 ?-2230 ?-1160 ?-1800 ? Urine Count ?9 ?0 ?0 ?2 ?0 ? Precautions No Precautions documented.? [place] Coma Scale Anju Coma Score: 15 (02/04/23 20:00:00) Motor Response-Adult: Obeys commands (02/04/23 20:00:00) Response Eye Opening: Spontaneously (02/04/23 20:00:00) Verbal Response-Adult: Oriented and converses (02/04/23 20:00:00) ?? Basic ADLs Activity Assistance: Standby assist (02/06/23) Ambulation Distance ft: 50 (02/04/23) Ambulatory devices needed: Walker (02/06/23) Feeding Assistance: Independent, NPO (02/06/23) Hygiene: Partial bath, Hair care, Mouth care, Soniya care, Soniya/Meier care, LISA stockings removed/reapplied (02/06/23) ? Mobility & Ambulation Level Mobility & Ambulation Level Activity Assistance: Standby assist (02/06/23) Activity Status ADL: Ambulating in [place], Ambulating in room, Back to bed, Bathroom privileges, Up ad karime, Up to chair (02/06/23) Ambulation Patient Effort: Good (02/02/23) Ambulatory devices needed: Walker (02/06/23) ?? Therapeutic Activity Therapeutic Activities/Mobility/Balance Comments on treatment indicated: 77 y/o M presents for weakness. ??He has known pinched nerves in his neck causing pain and weakness WBAT. PT for strengthening, balance, transfer training, gait training and stair negotiation. Rec d/c to rehab pending progress. (01/22/23 09:18:00) Plan of care PT: Gait training, Transfer training, Therapeutic exercise, Functional Activities, Balance training, Neuromuscular education (01/22/23 09:18:00) Problems PT: Impaired strength/ROM, Impaired functional mobility, Impaired balance, Impaired safety, Difficulty walking (01/22/23 09:18:00) Treatment Indicated-PT: Yes (01/22/23 09:18:00) Discharge recommendations: Rehab (01/22/23 09:18:00) Ambulation, ??PT Plan: Supervision (02/03/23 15:55:00) Barriers to goal achievement: Multiple medical problems (01/22/23 09:18:00) Bed mobility: PT Plan: Minimal assist (02/03/23 15:55:00) Equipment PT: Walker (01/22/23 09:18:00) Facilitators to goal achievement: Motivated (01/22/23 09:18:00) intermediate PT goals: At baseline for functional mobility (01/22/23 09:18:00) Plan Discussed w/Pt,Family/Agreed Upon: Yes (01/22/23 09:18:00) Plan discussed with care team PT: RN, application architect manager (01/22/23 09:18:00) PT Duration: 2 weeks (01/22/23 09:18:00) PT Short Term Goals: IND in HEP (02/03/23 15:55:00) Rehab potential: Fair (01/22/23 09:18:00) Transfer bed to chair PT Plan: Contact guard (02/03/23 15:55:00) Transfer Sit to Stand, PT Plan: Contact guard (02/03/23 15:55:00) ? Physical Exam Constitutional: Alert, in no acute distress. Head EENT: Extraocular muscle movement intact.??Moist mucous membranes.?? Respiratory: Clear to auscultation. No wheezing or crackles. No use of accessory muscles. Cardiovascular: S1S2 regular. No murmurs, rubs or gallops. Gastrointestinal: Abdomen soft, non-tender, distended. Normal bowel sounds. Extremities: 2+ pitting edema. No cyanosis or clubbing. Neurologic: AAOx3, Speech normal. No focal neurological deficits. Psychiatric: Normal mood and affect _ Inpatient Medications Medications (32) Active SCHEDULED: (20) Aspirin 81 mg EC Tablet (aspirin 81 mg oral delayed release tablet) ??81 mg, By Mouth, Daily Atorvastatin 80 mg Tablet (Lipitor 80 mg oral tablet) ??80 mg, By Mouth, Daily Bethanechol 25 mg Tablet (bethanechol 25 mg oral tablet) ??25 mg, By Mouth, 2 times a day Carvedilol 6.25 mg Tablet (Coreg 6.25 mg oral tablet) ??6.25 mg, By Mouth, 2 times a day Ceftriaxone 2 Gm Inj (Ceftriaxone Inj) ??2 Gm, IVPB, Every 24 hours Finasteride 5 mg Tablet (finasteride 5 mg oral tablet) ??5 mg, By Mouth, Daily Folic Acid 1 mg Tablet (folic acid 1 mg oral tablet) ??1 mg, By Mouth, Daily Furosemide 20 mg Tablet (Lasix 40 mg oral tablet) ??60 mg, By Mouth, Daily Gabapentin 400 mg Capsule (gabapentin 400 mg oral capsule) ??400 mg, By Mouth, Daily at bedtime Heparin Lock Flush 50 units / 5 mL (Heparin Flush 10 units/mL Inj) ??50 units 5 mL, IV Push, Daily Insulin Glargine 100 units/mL Inj (Insulin Glargine Inj) ??10 units 0.1 mL, Subcutaneous Injection,Daily at bedtime Insulin Lispro 100 units/mL Inj (3mL) (Insulin LISPRO Sliding Scale) ??2-22 units, Subcutaneous Injection, 3 times a day before meals Lidocaine 5% Topical Patch (Lidocaine 5% Patch) ??1 each, Topically, Daily Midodrine 5 mg Tablet (midodrine 5 mg oral tablet) ??10 mg, By Mouth, 3 times a day NaCl 0.9% Flush 3ml (NaCL 0.9% Flush) ??5 mL, IV Push, Daily Pantoprazole 20 mg EC Tablet (pantoprazole 20 mg oral delayed release tablet) ??20 mg, By Mouth, Daily Remove Patch (Remove Lidocaine Patch) ??1 each, Topically, Daily at bedtime Spironolactone 100 mg Tablet (Aldactone 100 mg oral tablet) ??150 mg, By Mouth, Daily Tamsulosin 0.4 mg Capsule (tamsulosin 0.4 mg oral capsule) ??0.4 mg, By Mouth, Daily Vitamin B-12 ??1000 mcg Tablet (cyanocobalamin 1000 mcg oral tablet) ??1,000 mcg, By Mouth, Daily CONTINUOUS: (0) PRN: (12) Acetaminophen 325 mg Tablet (Acetaminophen Tablet) ??325 mg, By Mouth, Every 4 hours Al hydroxide/Mg hydroxide/simethicone 200 mg-200 mg-20 mg/5 mL Susp UD (Maalox Plus Liquid) ??30 mL, By Mouth, Every 8 hours Dextrose Inj Syringe (Dextrose 50% Inj Syringe (25Gm)) ??12.5 Gm, IV Push Slowly, Every 20 minutes Dextrose Inj Syringe (Dextrose 50% Inj Syringe (25Gm)) ??25 Gm, IV Push Slowly, Every 15 minutes Glucagon 1 mg Inj (Glucagon Inj) ??1 mg, Intramuscular, Once Glucose 40% Gel (15 Gm) (Glucose Gel) ??15 Gm, By Mouth, Every 20 minutes Glucose 40% Gel (15 Gm) (Glucose Gel) ??30 Gm, By Mouth, Every 20 minutes Heparin Lock Flush 50 units / 5 mL (Heparin Flush 10 units/mL Inj) ??50 units 5 mL, IV Push, Every hour Melatonin 3 mg Tablet (Melatonin Tablet) ??9 mg, By Mouth, Daily at bedtime NaCl 0.9% Flush 3ml (NaCL 0.9% Flush) ??5 mL, IV Push, Every hour Nitroglycerin 0.4 mg Sublingual Tablet (Nitroglycerin 0.4mg Sublingual Tablet) ??0.4 mg, Sublingual, Once TraMADOL 50 mg Tablet (traMADol 50 mg oral tablet) ??50 mg, By Mouth, Every 6 hours ? 72 Hour Antibiotic History Active Antibiotics Calendar Day Last Administered First Administered Ceftriaxone??2 Gm, 100 mL/hr, IVPB, Every 24 hours ?2 02/06/2023 13:58 02/05/2023 13:54 ? Stopped Antibiotics Stop Date/Time Last Administered First Administered Ceftriaxone??2 Gm, 100 mL/hr, IVPB, Every 24 hours 02/04/2023 21:10 02/04/2023 12:29 01/25/2023 10:28 ? Vaccinations and Immunoprophylaxis pneumococcal 23-valent vaccine: 0.5 Unknown (07/16/20 07:00:00) SARS-CoV-2 (COVID-19) mRNA-1273 vaccine: 0.25 Unknown (10/11/21 07:00:00) SARS-CoV-2 (COVID-19) mRNA-1273 vaccine: 0.5 Unknown (11/14/20 07:00:00) SARS-CoV-2 (COVID-19) mRNA-1273 vaccine: 0.5 Unknown (10/17/20 07:00:00) tetanus-diphtheria toxoids (Td): 0.5 Unknown (06/16/19 08:00:00) ? Results Recent Labs BLOOD BANK Blood Type A Positive ()?? 02/06/2023 07:04 Antibody Screen Negative ()?? 02/06/2023 07:04 RBC Unit ID [id number] ()?? 02/06/2023 11:11 RBC Available XM ()?? 02/06/2023 11:11 ?? BLOOD COUNT & DIFF WBC 5.8 k/mm3 ()?? 02/06/2023 05:45 RBC 2.39 m/mm3 (Low)?? 02/06/2023 05:45 Hgb 6.8 Gm/dL (Low)?? 02/06/2023 05:45 Hct 22.0 % (Low)?? 02/06/2023 05:45 MCV 92.1 femtoliters ()?? 02/06/2023 05:45 MCH 28.5 pg ()?? 02/06/2023 05:45 MCHC 30.9 g/dL (Low)?? 02/06/2023 05:45 Platelet Count 103 k/mm3 (Low)?? 02/06/2023 05:45 RDW-SD 52.2 femtoliters (High)?? 02/06/2023 05:45 MPV 11.2 femtoliters ()?? 02/06/2023 05:45 Nucleated RBC (Automated) 0.0 #/100 WBC'S ()?? 02/06/2023 05:45 Abs. NRBC 0.0 k/mm3 ()?? 02/06/2023 05:45 ?? CHEM GENERAL Sodium 139 mmol/L ()?? 02/06/2023 05:45 Potassium 3.7 mmol/L ()?? 02/06/2023 05:45 Chloride 105 mmol/L ()?? 02/06/2023 05:45 Bicarbonate Level 28 mmol/L ()?? 02/06/2023 05:45 Anion Gap 6 ()?? 02/06/2023 05:45 Glucose Level 119 mg/dL (High)?? 02/06/2023 05:45 Glucose, POC 140 mg/dL (High)?? 02/06/2023 12:07 BUN 20 mg/dL ()?? 02/06/2023 05:45 Creatinine-Blood 1.0 mg/dL ()?? 02/06/2023 05:45 Estimated GFR Creatinine 81 ML/MIN/1.73 M2 ()?? 02/06/2023 05:45 Calcium 8.2 mg/dL (Low)?? 02/06/2023 05:45 Phosphorus 3.3 mg/dL ()?? 02/06/2023 05:45 Magnesium 1.7 mg/dL ()?? 02/06/2023 05:45 Protein, Total 5.1 Gm/dL (Low)?? 02/06/2023 05:45 Albumin 2.9 Gm/dL (Low)?? 02/06/2023 05:45 AG Ratio 1.3 ()?? 02/06/2023 05:45 Alkaline Phosphatase 178 units/L (High)?? 02/06/2023 05:45 AST (SGOT) 25 units/L ()?? 02/06/2023 05:45 ALT (SGPT) 22 units/L ()?? 02/06/2023 05:45 Bilirubin, Total 0.7 mg/dL ()?? 02/06/2023 05:45 ? Abnormal Labs ?? BLOOD BANK ??Antibody Screen ??Negative () ??02/06/2023 07:04 ??Blood Type ??A Positive () ??02/06/2023 07:04 ? BLOOD COUNT & DIFF ??Abs. NRBC ??0.0 k/mm3 () ??02/06/2023 05:45 ??Hct ??22.0 % (Low) ??02/06/2023 05:45 ??Hgb ??6.8 Gm/dL (Low) ??02/06/2023 05:45 ??MCHC ??30.9 g/dL (Low) ??02/06/2023 05:45 ??Nucleated RBC (Automated) ??0.0 #/100 WBC'S () ??02/06/2023 05:45 ??Platelet Count ??103 k/mm3 (Low) ??02/06/2023 05:45 ??RBC ??2.39 m/mm3 (Low) ??02/06/2023 05:45 ??RDW-SD ??52.2 femtoliters (High) ??02/06/2023 05:45 ? CHEM GENERAL ??AG Ratio ??1.3 () ??02/06/2023 05:45 ??Albumin ??2.9 Gm/dL (Low) ??02/06/2023 05:45 ??Alkaline Phosphatase ??178 units/L (High) ??02/06/2023 05:45 ??Calcium ??8.2 mg/dL (Low) ??02/06/2023 05:45 ??Estimated GFR Creatinine ??81 ML/MIN/1.73 M2 () ??02/06/2023 05:45 ??Glucose Level ??119 mg/dL (High) ??02/06/2023 05:45 ??Glucose, POC ??140 mg/dL (High) ??02/06/2023 12:07 ??Protein, Total ??5.1 Gm/dL (Low) ??02/06/2023 05:45 ? Note: Critical results are displayed in red. ? Blood Glucose Trend Glucose Level:??119 mg/dL??High (02/06/23 05:45:00) Glucose, POC:??140 mg/dL??High (02/06/23 12:07:00) Glucose, POC:??144 mg/dL??High (02/06/23 07:52:00) Glucose, POC:??171 mg/dL??High (02/05/23 20:46:00) Glucose, POC:??162 mg/dL??High (02/05/23 17:01:00) ? CBC, CBC w/Diff?? CBC?? WBC: 5.8 k/mm3 (05:45) RBC:??2.39 m/mm3??Low (05:45) Hct:??22 %??Low (05:45) RDW-SD:??52.2 femtoliters??High (05:45) Nucleated RBC (Automated): 0 #/100 WBC'S (05:45) Abs. NRBC: 0 k/mm3 (05:45) ? BMP, Mg, and Phos Anion Gap: 6 (05:45) Bicarbonate Level: 28 mmol/L (05:45) BUN: 20 mg/dL (05:45) Calcium:??8.2 mg/dL??Low (05:45) Chloride: 105 mmol/L (05:45) Creatinine-Blood: 1 mg/dL (05:45) Estimated GFR Creatinine: 81 ML/MIN/1.73 M2 (05:45) Glucose Level:??119 mg/dL??High (05:45) Magnesium: 1.7 mg/dL (05:45) Phosphorus: 3.3 mg/dL (05:45) Potassium: 3.7 mmol/L (05:45) Sodium: 139 mmol/L (05:45) ?? Coagulation Profile?? No qualifying data available. ?? LFT Albumin:??2.9 Gm/dL??Low (05:45) Alkaline Phosphatase:??178 units/L??High (05:45) ALT (SGPT): 22 units/L (05:45) AST (SGOT): 25 units/L (05:45) Bilirubin, Total: 0.7 mg/dL (05:45) ?? Urinalysis?? No qualifying data available. ?? Microbiology ?? Sterile Body Fluid Culture W/ Gram Smear?? Completed?? Source: Paracentesis Fluid Body Site: ?? Collected Dt/Tm: 01/26/2023 09:23 Last Updated Dt/Tm: 01/26/2023 09:23 ?SPECIMEN DESCRIPTION : PARACENTESIS FLUIDSPECIAL REQUESTS : NONEGRAM STAIN : 2+ POLYMORPHONUCLEAR LEUKOCYTES ?2+ TISSUE CELLS ?NO ORGANISMS SEENCULTURE : NO GROWTH 2 DAYSREPORT STATUS : FINAL 01/28/2023 Blood Culture #2?? Completed?? Source: Blood Body Site: ?? Collected Dt/Tm: 01/26/2023 07:00 Last Updated Dt/Tm: 01/25/2023 16:38 ?SPECIMEN DESCRIPTION : BLOOD LASPECIAL REQUESTS : NONECULTURE : NO GROWTH 5 DAYS.REPORT STATUS : FINAL 01/31/2023 Blood Culture?? Completed?? Source: Blood Body Site: ?? Collected Dt/Tm: 01/26/2023 07:00 Last Updated Dt/Tm: 01/25/2023 16:38 ?SPECIMEN DESCRIPTION : BLOOD RASPECIAL REQUESTS : NONECULTURE : NO GROWTH 5 DAYS.REPORT STATUS : FINAL 01/31/2023 ? Cardiology Labs High Sensitivity Troponin (HSTnT):??47 ng/L??High (01/22/23 08:45:00) High Sensitivity Troponin (HSTnT):??37 ng/L??High (01/22/23 02:51:00) High Sensitivity Troponin (HSTnT):??33 ng/L??High (01/21/23 22:42:00) ?? Blood Gases?? No qualifying data available. ?? Uric/LDH?? No qualifying data available. ?? Assessment/Plan Chief Complaint: neck pain. history of arhtirits. ?? Gross hematuria -following Meier removal patient developed hematuria with clot on 02/04 started on CBI, still with intermittent clots and gross hematuria after 24 hours of CBI will consult urology ?? Prostate cancer s/p XRT with lower urinary tract obstruction -continue Flomax, Proscar and bethanechol ?? 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 OPAT Script Indication/s: Cervical osteomyelitis Antimicrobial/s: _Ceftriaxone 2 g every 24 Planned duration: 6 weeks Start date: January 26 End date:??March 08 Vascular access:??PICC line Monitoring labs (test/frequency):??Weekly CBC with differential,??creatinine, BUN,??LFTs, biweekly ESR and CRP Imaging needed before outpt f/u visit: No Suggested outpt f/u visit: Yes, requested in 3 to 4 weeks ?? ID office: ?? Streptococcus parasanguinis??bacteremia -source likely recent dental procedure -repeat culture cleared, TTE and nuclear scan negative for valvular/pacemaker lead involvement, to finish IV abx as planned above outpatient -PICC line to be placed 02/04 initially malpositioned now in good position to use after adjustment ?? 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, hepatitis B and C serology negative, AIH serology unremarkable (SHAVON insignificantly elevated), iron studies no concern for iron overload, possibly due to a combination of alcoholic/non-alcoholic fatty liver disease -patient has established care at [facility] I encouraged him to follow up as appropriate to manage complications from cirrhosis as well as HCC and varices screening -patient is advised to avoid NSAIDs and limit acetaminophen to no more than 2000 mg over 24 hours, avoid raw seafood and approaching beach area, limit sodium intake to less than 2g/day -due to high MELD score and concurrent EMMANUEL would avoid any non-life saving surgery due to high riskof mortality, if urgent intervention needed would consider consulting GI for pre-op optimization ?? Grade 2 ascites 2/2 portal hypertension SBP ruled out -s/p diagnostic and therapeutic paracentesis 01/26 with 2.85L removed, cell count not consistent with SBP -SAAG>1.1 stared on Lasix and Aldactone at 2:5 ratio, lytes and Cr stable will increase to 60 mgand 200 mg daily respectively -2g sodium restriction ?? History of??esophageal varices -BB was held during early hospital course due to EMMANUEL, resumed but switched from Toprol XL to Coreg with hold parameters -follow up with primary GI at [facility] for scheduled EVL ?? Acute kidney injury grade 1, resolved -evidenced by Cr>0.3 mg/dL from baseline (~0.8-0.9 mg/dL last year), resolved with treatment of infection and albumin for volume challenge, urine indices non- active low suspicion for PIGN or IgA nephrology, monitor closely while on diuretics ?? 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 CAD s/p PCI with stable angina Severe s/p TAVR Complete heart block s/p PPM -cardiology consult appreciated, clinically low suspicion for ACS or decompensated heart failure, continue ASA and statin, resume Plavix upon discharge (held in house due to procedures and hematuria) ?? Peripheral edema due to hypervolemia and hypoalbuminemia from liver disease Hypoxia 2/2 atelectasis -continue PO diuretics, avoid IV diuresis in absence of pulmonary edema due to risk of kidney injury ?? History of HTN -switched from??Toprol XL to Coreg as primary prophylaxis for variceal bleeding -continue midodrine to maintain MAP>81 mmHg and avoid hypotension -avoid RAASi ?? DM2 with hypoglycemia, controlled -continue Lantus at lower than home dose, outpatient optimization as needed ?? Debility -multifactorial from above, continue PT in house with plan to discharge home with PT ?? Anxiety -[employer] reviewed on Xanax, this will contribute to his cognitive and physical decline in light of liver failure, patient is not taking it regularly at home and willing to stop given risks seems to outweigh the risk ?? Discussed with RN/CM; Tele reviewed paced rhythm. ?? VTE Prophylaxis:??SCD ?VTE Prophylaxis Assessment:??VTE Prophylaxis Ordered ?? Code Status:??Full ?Order Code Status:??Code Status Ordered ?? Ongoing Medical Necessity:??Hematuria management. ?? Discharge Planning:??Home with VNA.?Order Date/Time ??Order Action ??Order Name ??Order Detail ??02/06/2023 12:08 ??Order ??Glucose POC ??Routine, 02/06/23 12:07:00 EDT ??02/06/2023 08:00 ??Order ??Glucose POC ??Routine, 02/06/23 7:52:00 EDT ??02/06/2023 07:09 ??Modify ??Furosemide 20 mg Tablet ??60 mg, By Mouth, Daily ??02/06/2023 07:09 ??Modify ??Spironolactone 100 mg Tablet ??150 mg, By Mouth, Daily ??02/06/2023 07:04 ??Modify ??Spironolactone 100 mg Tablet ??150 mg, By Mouth, Daily ??02/06/2023 07:04 ??Modify ??Furosemide 20 mg Tablet ??60 mg, By Mouth, Daily ??02/06/2023 07:04 ??Order ??Transfuse RBCs ??CARMELITA, 1 Unit, Infusion Rate IB Potential TACO Risk: ??84 mL/hr, Consent Obtained, Indication: HCTLess than 21%, 02/06/23 7:04:00 EDT ??02/06/2023 07:04 ??Order ??Type and Screen ??CARMELITA, 02/06/23 7:04:00 EDT ? MR Cervical spine WO and W contrast IV * [facility] , CIS S: TRANSCRIBE Kayleen ROONEY, Td Núñez: VERIFY Event Display: Result: Authored Date: MRI Cervical Spine W+W/O Contrast INDICATION: Reason: Fever; Clinical Question(s): Disc Space Infection; Special Instructions: Pacemaker compatible with MRI per cardiology; Order Comment: Please see Reference Text for complete list of contraindications Disc Space Infection TECHNIQUE: MRI of the cervical spine was performed with and without intravenous contrast utilizing sagittal T1, sagittal T2, sagittal STIR, axial T1, and fat- saturated axial T2-weighted sequences, and post-contrast sagittal T1 and fat- saturated axial T1-weighted sequences. 19 mL of Clariscan was administered intravenously. COMPARISON: CT 01/25/2023 FINDINGS: T1 hypointensity, STIR hyperintensity and enhancement is present in the inferior C5 and superior [id number] bodies. The endplates are poorly defined. STIR hyperintensity is present in the intervertebral disc and extends anteriorly and posteriorly. Nonenhancing material within the anterior disc space and extending into the prevertebral soft tissues is consistent with fluid. Abnormal signal intensity is noted posterior to the C5 and C6 vertebral bodies and much of this enhances consistent with epidural phlegmon measuring 4.5 mm in thickness. Nonenhancing tissue seen posterior to the C5-C6 disc space is not T2 hyperintense and this may represent a superimposed disc herniation rather than a 5mm abscess. Nonenhancing soft tissue is seen posterior to the C6-7 disc space but the appearance onthe axial images suggest a moderate sized central disc herniation rather than abscess. There is enhancement in the anterior epidural space extending inferior to this herniation which could represent phlegmon or prominence of the epidural venous plexus related to the mass effect. Moderate central stenosis is produced at the C5-6 and C6-7 levels. There is T2 hyperintensity within the spinal cord atthe C5-6 level, predominantly involving the lateral margins of the cord. The spinal cord measures approximately 4 mm in AP diameter at the level of the superior endplate of C6. It measures approximate ly 4.2 mm in diameter at the level of the C6-7 disc space. The stenosis is accentuated by infoldingof the ligamentum flavum at C6-7, just superior to the disc space level. There appears to be enhancement and edema within the expanded longus coli muscle bilaterally at the C5 and C5 and C6 levels. Asmall amount of prevertebral fluid is seen anteriorly in the midline measuring approximately 3 mm in anteroposterior thickness. Inflammation extends posterolaterally from of the disc space at C5-6 encroaching on either C6 neural foramen. The C6/7 foramina are normal. Small central disc herniations at C3-4 and C4-5 do not appear to be significant. No paravertebral mass is noted aside from the inflammatory disease. IMPRESSION: 1. C5-6 discitis and osteomyelitis with extension of fluid into the prevertebral soft tissues from the disc space and a separate small prevertebral fluid collection. Anterior epidural phlegmon spans the C5 and C6 vertebral bodies and measures up to 4 mm in thickness. A 5 mm structure posterior to the C5-6 disc space more likely represents a small disc herniation than a small epidural abscess. Moderate central stenosis is produced with the spinal cord compression and spinal cord signal abnormality which could reflect edema or ischemia. 2. 6 mm nonenhancing soft tissue structure extending posteriorly from the C6-7 disc margin more consistent with a disc herniation than phlegmon or abscess. This also produces mild cord compression without associated spinal cord signal abnormality. Findings communicated via cortext with Dr. Holguin at 1616 hours on 01/26/2023, with receipt confirmed. WSN: [id number] Ordering Physician: Susu Holguin Dictated By: Td Beyer MD Dictated Date/Time: 01/26/23 4:17 pm Reviewed By: Td Beyer MD Signed By: Td Beyer MD Signed Date/Time: 01/26/23 4:17 pm Transcribed By: CARLOS Transcribed Date/Time: 01/26/23 3:[address] Abdomen and Pelvis WO contrast * [facility] , CIS S: TRANSCRIBE Michelle ROONEY, Anh N: VERIFY Event Display: Result: Authored Date: [id number] CT Abdomen and Pelvis W/O Contrast Reason: Hematuria; Hematuria with L groin pain r o ureteral stone; Clinical Question(s): Calculus; Order Comment: TECHNIQUE: Spiral CT through the abdomen and pelvis without IV contrast formatted in 3 planes. Thisstudy was performed without oral contrast. Weight- based protocol using automatic tube modulation was used to optimize exposure parameters. CTDIvol Body: 22.17 mGy, DLP Body: 1152 mGy*cm. COMPARISON: None. FINDINGS: Commercial Floor Covering Installer View Findings, Lines and Tubes: Partially imaged leads from a cardiac pacing device. Visualized Chest: Partially imaged small left and izmth-ls-ahinvqhk right pleural effusions with overlying atelectasis. The lung bases are blurred by respiratory motion Diaphragm: Normal. Liver: Cirrhotic morphology with nodular contour. Gallbladder: Cholelithiasis. Bile ducts: No biliary ductal dilation. Spleen: Splenomegaly, measuring approximately 19 cm. There is a focal area of hypodensity in the superomedial spleen which is intermediate attenuation, and not fully characterized.. Pancreas: Normal. Adrenal glands: Normal. Kidneys and ureters: No hydronephrosis, stones, or noncontrast evidence of suspicious masses. Bladder: Decompressed around a Meier catheter. The luminal contents appear hyperdense. Reproductive organs: Metallic markers along the location of the prostate. Stomach, small bowel, and large bowel: No obstruction. Appendix: Not seen, but no evidence of appendicitis. Peritoneum and retroperitoneum: Small moderate ascites. No omental or mesenteric lesions. Lymph nodes: No enlarged lymph nodes. Blood vessels: Severe atherosclerotic vascular calcification but no aneurysm. Recanalized umbilicalvein. Abdominal and pelvic wall: Unremarkable. Bones: No acute abnormality. Surgical hardware between the L4 and L5 spinous processes. Degenerative changes of the spine. IMPRESSION: Dense material in the bladder, which likely reflects blood clot in setting of hematuria. The bladder is not assessed well due to the decompression around a Meier catheter. Follow-up recommended, and further assessment for etiology of hematuria as indicated clinically. No renal or bladder stones are demonstrated. Cirrhosis with findings of portal hypertension including recanalized helical pain and splenomegaly.Small to moderate ascites. Cholelithiasis. Bilateral pleural effusions, partially imaged. Focal area of hypoattenuation in the spleen is nonspecific and not fully characterized. WSN: [id number] Ordering Physician: Susu Holguin Dictated By: Anh Martinez MD Dictated Date/Time: 02/05/23 4:52 pm Reviewed By: Anh Martinez MD Signed By: Anh Martinez MD Signed Date/Time: 02/05/23 4:52 pm Transcribed By: CARLOS Transcribed Date/Time: 02/05/23 4:45 pm US Abdomen * [facility] , CIS S: TRANSCRIBE Mati García MD: VERIFY Event Display: Result: Authored Date: [id number] US Ascites Reason: Ascites; Clinical Question(s): Ascites COMPARISON: None. TECHNIQUE: Grayscale limited abdominal ultrasound of the 4 quadrants. FINDINGS: Small amount of ascites, largest amount was in the right upper quadrant. Nodular liver contour compatible with cirrhosis. Enlarged spleen measuring 19.6 cm in length. IMPRESSION: Cirrhosis with small amount of ascites and splenomegaly. WSN: [id number] Ordering Physician: Susu Holguin Dictated By: Mati García MD Dictated Date/Time: 01/25/23 12:57 p Reviewed By: Mati García MD Signed By: Mati García MD Signed Date/Time: 01/25/23 12:57 pm Transcribed By: CARLOS Transcribed Date/Time: 01/25/23 12:56 pm Portable XR Chest Views * [facility] , CIS S: TRANSCRIBE Te Yancey MD T: SIGN Nathalie ROONEY, Kuldeep V: VERIFY Event Display: Result: Authored Date: [id number] Chest Portable Reason: Line Placement; Clinical Question(s): Line Placement; Special Instructions: RUE PICC placement COMPARISON: None. FINDINGS: LINES AND TUBES: The right upper extremity PICC line with the tip directed superiorly into the internal jugular veinand not included in the pnnee-jy-ehuy. Dual-lead left subclavian pacer wires are intact. LUNGS AND PLEURA: Slightly increased nonspecific interstitial haziness of the right lung base. No definite focal consolidation. No pleural effusion. No pneumothorax. HEART, MEDIASTINUM AND KAYE: Heart is normal in size. Status post TAVR. Normal mediastinal and hilar contour. BONES AND SOFT TISSUES: No acute abnormality. IMPRESSION: New right upper extremity PICC line with the tip directed toward the right internal jugular vein and not included in the sschv-gw-ciqz. Mildly increased interstitial markings in the right lower lung. No focal consolidation. Results were relayed by Cortext by Dr. Yancey to Susu Holguin on 02/04/2023 4:07 PM. I have personally reviewed the images and I agree with this report. WSN: [id number] Ordering Physician: Susu Holguin Dictated By: Te Yancey MD Dictated Date/Time: 02/04/23 4:18 pm Reviewed By: Kuldeep Zelaya MD, V Signed By: Kuldeep Zelaya MD, V Signed Date/Time: 02/04/23 4:23 pm Transcribed By: CARLOS Transcribed Date/Time: 02/04/23 4:09 pm * [facility] , CIS S: TRANSCRIBE Alina Arango MD: VERIFY Event Display: Result: Authored Date: [id number] Chest Portable INDICATION: Reason: Line Placement; Clinical Question(s): Line Placement; Special Instructions: interim over the wire exchange to correct malposition in right IJ COMPARISON: 02/04/2023 FINDINGS: LINES AND TUBES: A left-sided Port-A-Cath is noted with 2 leads overlying the heart. A right- sided peripherally inserted central catheter is now seen terminating in the distal SVC, which is now in adequate position and when compared to prior radiograph of 02/04/2023 at 3:38 PM. LUNGS AND PLEURA: There is increased opacity in the bases, similar to prior examination. There is blunting of the left costophrenic angle and to a lesser extent the right costophrenic angle, slightly more prominent since prior examination. There is no appreciable pneumothorax. HEART, MEDIASTINUM AND KAYE: Cardiac silhouette remains enlarged. A TAVR is again seen. Mediastinal contours are unchanged. BONES AND SOFT TISSUES: No acute abnormality. IMPRESSION: Right-sided peripherally inserted central catheter terminating in the distal SVC, in adequate position. Bibasilar airspace disease with small pleural effusions. Clinical correlation and follow-up to baseline is advised. WSN: [id number] Ordering Physician: Susu Holguin Dictated By: Alina Arango MD Dictated Date/Time: 02/04/23 7:00 pm Reviewed By: Alina Arango MD Signed By: Alina Arango MD Signed Date/Time: 02/04/23 7:00 pm Transcribed By: CARLOS Transcribed Date/Time: 02/04/23 6:58 pm Laboratory * [facility] , CIS S: TRANSCRIBE Hernan Marquez MD: VERIFY Event Display: Result: Authored Date: [id number] Chest 2 Views Frontal and Lat Hx of Present Illness: Patient reports pain in neck, upper back and bilat shoulder x several weeks.Was recently hospitalized at [facility] for same and discharged to home. Pain persists and patient cannot take care of self or perform ADLs. Spouse cannot help due to injury.; Reason: Other:; gen weakness; Clinical Question(s): Pneumonia COMPARISON: 06/10/2022 FINDINGS: LINES AND TUBES: Dual-lead left subclavian pacer/AICD wires are intact. LUNGS AND PLEURA: Hyperinflated lungs. No definite consolidation or overt pulmonary edema. HEART, MEDIASTINUM AND KAYE: Unchanged. Status post TAVR. BONES AND SOFT TISSUES: No acute abnormality. IMPRESSION: No acute abnormality. WSN: [id number] Ordering Physician: Vega Pena Dictated By: Hernan Marquez MD Dictated Date/Time: 01/21/23 9:45 pm Reviewed By: Hernan Marquez MD Signed By: Hernan Marquez MD Signed Date/Time: 01/21/23 9:45 pm Transcribed By: CARLOS Transcribed Date/Time: 01/21/23 9:[address] Cervical spine WO contrast * [facility] , CIS S: TRANSCRIBE Lisa ROONEY, Jennifer R: VERIFY Event Display: Result: Authored Date: [id number] CT Cervical Spine W/O Contrast Reason: Back Pain; Bacteremia, known cervical radiculopathy, spinal tenderness, unable to do contrast scan or MRI, evaluate osseous abnormalities; Clinical Question(s): Fracture Dislocation; Order Comment: TECHNIQUE: Spiral CT of the cervical spine without contrast, formatted in 3 planes. Weight-based protocol using automatic tube modulation was used to optimize exposure parameters. RADIATION DOSE PARAMETERS: CTDIvol Body: 26.58 mGy, DLP Body: 719 mGy*cm. COMPARISON: None. FINDINGS: There is mild prevertebral fluid centered at C5-C6. At C5-C6 there is cortical irregularity and destruction of the inferior endplate of C5 and the superior endplate of C6, most advanced along the anterior aspect of the vertebral bodies. There is associated diminished disc height and irregularity ofthe disc. There is straightening and reversal of the normal curvature which is centered at C5- C6. Posterior cortical destruction/irregularity at C5-C6 indents upon the thecal sac and causes moderate canal stenosis. Disc heights are preserved at the other levels. There are mild multilevel degenerative facet arthritic changes and mild marginal endplate spurring at multiple levels. There are cervical carotid arterial calcifications. The included thyroid gland is normal. Included lung apices demonstrate breathing motion artifact. IMPRESSION: C5-C6 cortical destruction, significantly diminished disc height and prevertebral fluid at this level highly suspicious for discitis osteomyelitis. Findings discussed over the phone with nurse caring for the patient on MM6 01/25/2023 6:35 PM. WEbook message was also sent with findings to Faviola TAPIA 01/25/2023 6:57 PM. WSN: [id number] Ordering Physician: Susu Holguin Dictated By: Jennifer Gonzalez MD Dictated Date/Time: 01/25/23 7:00 pm Reviewed By: Jennifer Gonzalez MD Signed By: Jennifer Gonzalez MD Signed Date/Time: 01/25/23 7:00 pm Transcribed By: CARLOS Transcribed Date/Time: 01/25/23 6:37 pm Radiology * [facility] , ANDERSON S: TRANSCRIBE Mati García MD S: VERIFY Ld GUZMANJustina F: SIGN Event Display: Result: Authored Date: [id number] NM Inflam Loc Whole Body 2/+ Days, NM SPECT CT CT 2/+ days - NM WBC Scan REASON: Concern for endocarditis needs WBC NM scan TECHNIQUE: Following the intravenous administration of 0.620 millicuries of Indium-111 labeled autologous white blood cells, whole body planar images were obtained after 24 hours. Then SPECT coupled with CT imaging of the chest was performed. COMPARISON: CT TAVR Angio Chest and Abd/pelvis 02/05/22. Correlation also made with MRI cervical spine 01/27/2020. FINDINGS: There is no increased uptake of labeled white blood cells throughout the imaged portion of the body. Physiologic activity is noted in the liver, spleen, and skeleton. Other findings: * Dual-lead left subclavian pacer. * Moderate right pleural effusion and small left pleural effusion. * Nodular liver contour. * Small volume of perihepatic and perisplenic ascites. * Enlarged spleen measuring up to 16.6 cm. * Mild cardiomegaly. IMPRESSION: 1. There is no scintigraphic evidence of inflammation or infection. Please note, white cell scans are insensitive for spinal osteomyelitis/discitis. 2. Moderate right and small left pleural effusions. 3. Small volume ascites. I have personally reviewed the images and I agree with this report. WSN: [id number] Ordering Physician: Garrick Seymour Dictated By: Justina Jaffe DO Dictated Date/Time: 02/03/23 4:35 pm Reviewed By: Mati García MD Signed By: Mati García MD Signed Date/Time: 02/03/23 4:40 pm Transcribed By: CARLOS Transcribed Date/Time: 02/03/23 3:19 pm * [facility] , CIS S: TRANSCRIBE Mati García MD: VERIFY Justina Jaffe DO: SIGN Event Display: Result: Authored Date: [id number] NM Inflam Loc Whole Body 2/+ Days, NM SPECT CT CT 2/+ days - NM WBC Scan REASON: Concern for endocarditis needs WBC NM scan TECHNIQUE: Following the intravenous administration of 0.620 millicuries of Indium-111 labeled autologous white blood cells, whole body planar images were obtained after 24 hours. Then SPECT coupled with CT imaging of the chest was performed. COMPARISON: CT TAVR Angio Chest and Abd/pelvis 02/05/22. Correlation also made with MRI cervical spine 01/27/2020. FINDINGS: There is no increased uptake of labeled white blood cells throughout the imaged portion of the body. Physiologic activity is noted in the liver, spleen, and skeleton. Other findings: * Dual-lead left subclavian pacer. * Moderate right pleural effusion and small left pleural effusion. * Nodular liver contour. * Small volume of perihepatic and perisplenic ascites. * Enlarged spleen measuring up to 16.6 cm. * Mild cardiomegaly. IMPRESSION: 1. There is no scintigraphic evidence of inflammation or infection. Please note, white cell scans are insensitive for spinal osteomyelitis/discitis. 2. Moderate right and small left pleural effusions. 3. Small volume ascites. I have personally reviewed the images and I agree with this report. WSN: [id number] Ordering Physician: Garrick Seymour Dictated By: Ld Justina GUZMAN Dictated Date/Time: 02/03/23 4:35 pm Reviewed By: Mati García MD Signed By: Mati García MD Signed Date/Time: 02/03/23 4:40 pm Transcribed By: CARLOS Transcribed Date/Time: 02/03/23 3:19 pm * Event Display: IR End of Case Report * Laura Phillips: PERFORM, TRANSCRIBE, VERIFY, VERIFY Event Display: Result: Authored Date: [id number] Patient: GILLES WRIGHT Study Date: 01/26/2023 Performing: Laura Garcia PA-C Referring: : 1945 Age: 77 Gender: MALE PROCEDURE: US Guided Paracentesis INDICATION: Ascites, abdominal distension, request samples for testing. CONSULTING SERVICES PROJECT MANAGER(S): Laura Garcia PA-C ANESTHESIA: 1% lidocaine was administered for local anesthesia TECHNIQUE: A limited ultrasound examination of the abdomen was performed. Informed consent was obtained. A suitable access site in the right upper abdominal wall was identified, marked, prepped and draped in standard sterile fashion. 1% lidocaine was administered for local anesthesia. A 5 Tajik catheter was advanced into the peritoneal cavity. A post paracentesis scan was obtained. The catheter was removed and hemostasis obtained using manual compression. COMPLICATIONS: The patient tolerated the procedure well and left the department in stable condition. There were no immediate complications. FINDINGS: There is a moderate amount of abdominal ascites. An ultrasound guided paracentesis was successfully performed as described above. The post paracentesis scan demonstrates no significant residual abdominal ascites. PLAN: Routine post procedure monitoring. IMPRESSION: Successful ultrasound guided paracentesis with evacuation of 2850 ml of clear yellow/serous ascites. Signed By Laura Garcia PA-C On 01/26/2023 10:25:44 Signed By Laura Garcia PA-C On 01/26/2023 10:25:44 Laura Garcia PA-C Equipment : Cook YUEH 19 X 10 Dictated By: Laura Phillips Dictated Date/Time: 01/26/23 9:10 am Reviewed By: Laura Phillips Signed By: Laura Phillips Signed Date/Time: 01/26/23 9:40 am Transcribed By: CASSIE Transcribed Date/Time: 01/26/23 9:40 am US Retroperitoneum * [facility]erscribe , CIS S: TRANSCRIBE David Weldon MD: VERIFY Doug Nolan DO: SIGN Event Display: Result: Authored Date: [id number] US Retroperitoneum Comp Reason: Renal Failure; EMMANUEL, bladder and kidney scan; Clinical Question(s): Renal Obstruction COMPARISON: CTA 02/05/2022. FINDINGS: Right kidney: 12.3 cm in length. No hydronephrosis. Normal parenchymal echotexture with cortical thinning. No stones. No suspicious mass. Left kidney: 11.6 cm in length. No hydronephrosis. Normal parenchymal echotexture with cortical thinning. No stones. No suspicious mass. Urinary bladder: Urinary bladder is distended with dilation of the distal ureters bilaterally measuring 0.6-0.7 cm. Urinary bladder otherwise unremarkable. No stone or mass. Incidentally seen splenomegaly measuring 20 cm, previously measured 18 cm on 02/05/2022. Partially depressed imaged liver demonstrates an ill-defined heterogeneously hypoechoic lesion within the posterior right lobe measuring 3.1 cm, possibly cystic on transverse imaging. No definite correlate on prior CT angiogram, although comparison is limited due to phase of contrast enhancement. IMPRESSION: No hydronephrosis or obstructing stone. Bilateral renal cortical thinning. Urinary bladder is well-distended with dilation of the proximal distal ureters. Partially-imaged 3.1 cm posterior right hepatic hypoechoic lesion, possibly cystic but incompletelycharacterized. Given cirrhotic morphology of liver on comparison CT angiogram, dedicated liver ultrasound or MRI with contrast suggested for further characterization. Splenomegaly measuring up to 20 cm, slightly increased from prior. An actionable message (Yellow) has been communicated via the [employer] system on 01/26/2023 10:53 AM, Message ID [id number]. I have personally reviewed the images and I agree with this report. WSN: [id number] Ordering Physician: Susu Holguin Dictated By: Doug Nolan DO Dictated Date/Time: 01/26/23 10:53 a Reviewed By: David Weldon MD Signed By: David Weldon MD Signed Date/Time: 01/26/23 10:58 am Transcribed By: CARLOS Transcribed Date/Time: 01/26/23 10:31 am Patient Care team information Care Team Personnel Name: Kalyani Miller LPN Position: [facility] RN Member Role: Primary Care Nurse Name: Nadiya Coleman RN Position: [facility] RN Member Role: Primary Care Nurse Name: Sobia Hilliard RN Position: [facility] RN Supv Member Role: Primary Care Nurse Name: Lupe Díaz RN Position: [facility] RN Member Role: Primary Care Nurse Name: Lorraine Araujo RN Position: [facility] RN Member Role: Primary Care Nurse Name: Adryan Rm RN Position: [facility] RN Member Role: Primary Care Nurse Name: Peg Trinidad RN Position: [facility] RN Member Role: Primary Care Nurse Name: Ana Lilia Arzate RN Position: [facility] RN Member Role: Primary Care Nurse Name: Fely Gaspar Position: [facility] RN Member Role: Primary Care Nurse Name: Meli Luz LPN Position: [facility] RN Member Role: Primary Care Nurse Name: Matheus Cleveland RN Position: [facility] RN Member Role: Primary Care Nurse Name: Mercedes Maki Position: [facility] RN Member Role: Primary Care Nurse Name: Les Sahu MD Position: [facility] Renal MD Member Role: Lifetime Consulting Physician Address: Address: [address] [place] [address] [address] [facility], [place] [address]- [place] Name: Gabby Ma RN Position: [facility] SN RN Member Role: Primary Care Nurse Name: Huyen Griffin Position: [facility] RN Member Role: Primary Care Nurse Name: Zo Vivar RN Position: [facility] RN Member Role: Primary Care Nurse Name: Maninder Gorman MD Position: Reference Physician Member Role: PCP Address: Address: [address] [place] [address]- [place] Name: Elmira GUZMAN Attending Position: [facility] ED Medicine Name: Rosio Ramirez RN Position: [facility] ED RN W/OE and Tasks Member Role: Patient Care Provider Name: Mika Luna Position: [facility] ED OA Charge Member Role: ED Associate Name: Tania Wu Position: [facility] ED TA [facility] Care Team Related Persons Name: ROMANAGILGUCCIDES Address: home [address] [place] [address] Name: GISELA WRIGHT Address: home [place] [id number]
--- OUTSIDE RECORDS SUMMARY | 2024-04-15 20:03 | XMS_ITS | Continuity of Care Document ---
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 Refills 0, Maintenance, 02/07/23 12:32:00 EDT, Route to Pharmacy Electronically, [facility] #[id number], Partial nikhil... Start Date: 02/07/23 Status: Ordered aspirin 81 mg oral delayed release tablet 81 mg, 1, tablet, By Mouth, Daily, Do not start aspirin until 06/16/2022, # 90 tablet, Refills 0, Tot. Refills 0, Maintenance, 02/07/23 12:28:00 EDT, Route to Pharmacy Electronically, [facility] #[id number], Partial fill upon patient request if t... [...] mmHg and/or heart rate is below 55 [id number], # 180 tablet, Refills 0, Tot. Refills 0, Maintenance, 02/07/23 12:29:00 EDT, Route to Pharmacy Electronically... Start Date: 02/07/23 Status: Ordered Farxiga 10 mg oral tablet 1 tablet = 10 mg, By Mouth, Daily, # 90 tablet, 0 Refills, Maintenance, 02/07/23 12:33:00 EDT, Tablet, [facility] #[id number], Partial fill upon patient request if the prescription is for a schedule II opioid drug., 175, cm, 02/07/23 12:05:00 EDT... Start Date: 02/07/23 Status: Ordered ferrous sulfate 325 mg oral enteric coated tablet 325 mg, 1, tablet, By Mouth, Daily, # 90 tablet, Refills 0, Tot. Refills 0, Maintenance, 02/07/23 12:36:00 EDT, Route to Pharmacy Electronically, [facility] #[id number], Partial fill upon patient request if the prescription is for a schedule II o... Start Date: 02/07/23 Status: Ordered finasteride 5 mg oral tablet 1 tablet = 5 mg, By Mouth, Daily, # 90 tablet, 0 Refills, Maintenance, 02/07/23 12:28:00 EDT, Tablet, [facility] #[id number], Partial fill upon patient request if the [...] 02/07/23 12:31:00 EDT, Route to Pharmacy Electronically, [facility] #[id number], Partial fill... Start Date: 02/07/23 Status: Ordered lidocaine 5% topical film 1 patch, Topically, Daily, Apply to back of the neck tender point, 12 hours on then 12 hours off., # 30 patch, 0 Refills, Maintenance, 02/07/23 12:30:00 EDT, Patch, [facility] #[id number], Partial fill upon patient request if the prescription is... Start Date: 02/07/23 Status: Ordered Lipitor 80 mg oral tablet 1 tablet = 80 mg, By Mouth, Daily, # 90 tablet, 0 Refills, Maintenance, 02/07/23 12:28:00 EDT, Tablet, [facility] #[id number], 175, cm, 02/07/23 12:05:00 EDT, Height, 94, kg, 01/23/23 9:15:00 EDT, Dry Weight Start Date: 02/07/23 Status: Ordered midodrine 10 mg oral tablet 1 tablet = 10 mg, By Mouth, 3 times a day, To help maintain systolic blood pressure above 110-120 mmHg, # 90 tablet, 2 Refills, Maintenance, 02/07/23 12:33:00 EDT, Tablet, [facility] #[id number], Partial fill upon patient request if the prescript... Start Date: 02/07/23 Status: Ordered Narcan 4 mg/0.1 mL nasal spray = 4 mg, Nares, Both, Once, PRN Other, To reverse opioid overdose, administer to each nostril, may repeat every 2 to 3 minutes until patient responds, call 911 in the meantime., # 2 each, 0 Refills, Soft Stop, 02/07/23 12:41:00 EDT, [facility]... Start Date: 02/07/23 Status: Ordered NovoLOG [...] 02/07/23 12:29:00 EDT, Route to Pharmacy Electronically, [facility] #[id number],Partial fill upon patient request if the prescripti... Start Date: 02/07/23 Status: Ordered Tresiba FlexTouch = 10 units, [...] 0 Refills, Maintenance, 02/07/23 12:33:00 EDT, Tablet, [facility] #[id number], Partial fill upon patient request if the [...] February 2013. Urologist is Dr. Zafar Roa [facility] ). Social History Social History Type Response Smoking Status Never (less than 100 in lifetime) entered on: 06/02/22 Sex Patient Care team information Care Team Personnel Name: Kalyani Miller LPN Position: S RN Member Role: Primary Care Nurse Name: Nadiya Coleman RN Position: S RN Member Role: Primary Care Nurse Name: Sobia Hilliard RN Position: S RN Supv Member Role: Primary Care Nurse Name: Lupe Díaz RN Position: [facility] RN Member Role: Primary Care Nurse Name: Lorraine Araujo RN Position: [facility] AMB Nurse Member Role: Primary Care Nurse Name: Adryan Rm RN Position: [facility] RN Member Role: Primary Care Nurse Name: Peg Trinidad RN Position: [facility] RN Member Role: Primary Care Nurse Name: Fely Gaspar Position: [facility] RN Member Role: Primary Care Nurse Name: Meli Luz LPN Position: [facility] RN Member Role: Primary Care Nurse Name: Matheus Cleveland RN Position: [facility] RN Member Role: Primary Care Nurse Name: Mercedes Maki Position: [facility] RN Member Role: Primary Care Nurse Name: Les Sahu MD Position: [facility] Renal MD Member Role: Lifetime Consulting Physician Address: Address: [address] [facility] [place] [address]- [place] Name: Gabby Ma RN Position: [facility] SN RN Member Role: Primary Care Nurse Name: Huyen Griffin Position: [facility] RN Member Role: Primary Care Nurse Name: Zo Vivar RN Position: [facility] RN Member Role: Primary Care Nurse Name: Vita ROONEY, Maninder Sanon Position: Reference Physician Member Role: PCP Address: Address: [address] [place] [address]- Care Team Related Persons Name: DES WRIGHT Address: home [address] [place] [address] Name: GISELA WRIGHT Address: home [place] [address]
--- OUTSIDE RECORDS SUMMARY | 2024-04-15 20:03 | XMS_ITS | Continuity of Care Document ---
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 Date(s): 07/21/23 - 09/24/23 [facility] [address] [place] [id number]- Attending Physician: Cole Saleem MD Admitting Physician: Cole Saleem MD Referring Physician: Maninder Gorman MD Allergies, Adverse Reactions, Alerts Substance Reaction Severity Status lisinopril 1 throat swelling Active TiZANidine Hydrochloride hallucination Ac tive Latex Rash Active pregabalin hallucination Active 1throat swelling Immunizations Given and Recorded Vaccine Date Status Refusal Reason influenza virus vaccine, inactivated 07/14/23 Give n SARS-CoV-2 (COVID-19) mRNA-1273 vaccine 10/11/21 R ecorded SARS-CoV-2 (COVID-19) mRNA-1273 vaccine 11/14/20 R ecorded SARS-CoV-2 (COVID-19) mRNA-1273 vaccine 10/17/20 R ecorded pneumococcal 23-valent vaccine 07/16/20 Recorded tetanus-diphtheria toxoids (Td) 06/16/19 Recorded Medications ALPRAZolam 0.5 mg oral tablet TAKE 1 TABLET BY MOUTH TWICE DAILY NEEDED FOR ANXIETY Start Date: 07/14/23 Status: Ordered amoxicillin 500 mg oral capsule 1 capsule = 500 mg, By Mouth, 2 times a day, for 90 days, start new dosing 08/29/23, # 180 capsule,2 Refills, Acute 05/17/24 13:41:00 EDT, 08/21/23 13:41:00 EST, Capsule, [facility] #[id number], Partial fill upon patient request if the prescript... Start Date: 08/21/23 Stop Date: 05/17/24 Status: Ordered amoxicillin 500 mg oral capsule 2 capsule = 1,000 mg, By Mouth, 3 times a day, # 240 capsule, 0 Refills, Maintenance, 07/28/23 10:17:00 EST, [facility] #[id number], Partial fill upon patient request if the prescription is for a schedule II opioid drug., 175.26, cm, 07/24/23 9:5... Start Date: 07/28/23 Stop Date: 09/06/23 Status: Ordered aspirin 81 mg oral delayed release tablet 81 mg, 1, tablet, By Mouth, Daily, Do not start aspirin until 06/16/2022, # 90 tablet, Refills 0, Tot. Refills 0, Maintenance, 02/07/23 12:28:00 EDT, Route to Pharmacy Electronically, [facility] #[id number], Partial fill upon patient request if t... [...] EDT, Supply Start Date: 02/07/23 Status: Ordered bumetanide 1 mg oral tablet 1 mg, 1, tablet, By Mouth, Daily, # 90 tablet, Refills 0, Tot. Refills 0, Maintenance, 08/17/23 7:00:00 EST, Route to Pharmacy Electronically, [facility] #[id number], Partial fill upon patient request if the prescription is for a schedule II opio... Start Date: 08/17/23 Status: Ordered ceftriaxone 2 gm injectable powder for injection = 2 Gm, IVPB, Every 12 hours, 0 Refills, Maintenance, 07/22/23 9:53:00 EST, Injection, Partial fillupon patient request if the prescription is for a schedule II opioid drug. Start Date: 07/22/23 Status: Ordered clopidogrel 75 mg oral tablet [...] mmHg and/or heart rate is below 55 [id number], # 180 tablet, Refills 0, Tot. Refills 0, Maintenance, 02/07/23 12:29:00 EDT, Route to Pharmacy Electronically... Start Date: 02/07/23 Status: Ordered diclofenac 1% topical gel = 4 Gm, Topically, 4 times a day, PRN Pain , Moderate, # 100 Gm, 0 Refills, Maintenance, 08/15/23 11:37:00 EST, Gel, [facility] #[id number], Partial fill upon patient request if the prescriptionis for a schedule II opioid drug., 175, cm, ... Start Date: 08/15/23 Status: Ordered Farxiga 10 mg oral tablet 1 tablet = 10 mg, By Mouth, Daily, # 90 tablet, 0 Refills, Maintenance, 02/07/23 12:33:00 EDT, Tablet, [facility] #[id number], Partial fill upon patient request if the prescription is for a schedule II opioid drug., 175, cm, 02/07/23 12:05:00 EDT... Start Date: 02/07/23 Status: Ordered ferrous sulfate 325 mg oral enteric coated tablet 325 mg, 1, tablet, By Mouth, Daily, # 90 tablet, Refills 0, Tot. Refills 0, Maintenance, 02/07/23 12:36:00 EDT, Route to Pharmacy Electronically, [facility] #[id number], Partial fill upon patient request if the prescription is for a schedule II o... Start Date: 02/07/23 Status: Ordered finasteride 5 mg oral tablet 1 tablet = 5 mg, By Mouth, Daily, # 90 tablet, 0 Refills, Maintenance, 02/07/23 12:28:00 EDT, Tablet, [facility] #[id number], Partial fill upon patient request if the prescription is for a schedule II opioid drug., 175, cm, 02/07/23 12:05:00 EDT,... Start Date: 02/07/23 Status: Ordered folic acid 0.8 mg oral tablet TAKE 1 TABLET BY MOUTH EVERY DAY Start Date: 07/14/23 Status: Ordered gabapentin 300 mg oral capsule 300 mg, 1, capsule, By Mouth, 2 times a day, # 60 capsule, Refills 3, Tot. Refills 3, Maintenance, 07/22/23 9:56:00 EST, Route to Pharmacy Electronically, [facility] #[id number], Partial fill upon patient request if the prescription is for a sche... Start Date: 07/22/23 Status: Ordered lactulose 10 gm/15 ml oral syrup See Instructions, PRN Other, Take 15 mL as needed for constipation, please maintain daily bowel movement, hold for excessive loose stool or diarrhea (more than 3 times a day)., # 480 mL, 0 Refills, Maintenance, 02/07/23 12:36:00 EDT, Syrup, [facility]... Start Date: 02/07/23 Status: Ordered Lipitor 80 mg oral tablet 1 tablet = 80 mg, By Mouth, Daily, # 90 tablet, 0 Refills, Maintenance, 02/07/23 12:28:00 EDT, Tablet, [facility] #[id number], 175, cm, 02/07/23 12:05:00 EDT, Height, 94, kg, 01/23/23 9:15:00 EDT, Dry Weight Start Date: 02/07/23 Status: Ordered midodrine 10 mg oral tablet 1 tablet = 10 mg, By Mouth, 3 times a day, To help maintain systolic blood pressure above 110-120 mmHg, # 90 tablet, 2 Refills, Maintenance, 02/07/23 12:33:00 EDT, Tablet, [facility] #[id number], Partial fill upon patient request if the prescript... Start Date: 02/07/23 Status: Ordered NovoLOG FlexTouch [...] 02/07/23 12:29:00 EDT, Route to Pharmacy Electronically, [facility] #[id number],Partial fill upon patient request if the prescripti... Start Date: 02/07/23 Status: Ordered Tresiba FlexTouch 200 units/mL subcutaneous solution INJECT 60 UNITS UNDER THE SKIN AT BEDTIME Start Date: 07/14/23 Status: Ordered Trulicity Pen 0.75 mg/0.5 mL subcutaneous solution 0.5 mL = 0.75 mg, Subcutaneous Injection, Every week, EVERY THURSDAY, 0 Refills, Maintenance, 02/10/19 11:13:09 EDT, Solution Start Date: 02/10/19 Status: Ordered Zetia 10 mg oral tablet 1 tablet = 10 mg, By Mouth, Daily, # 90 tablet, 0 Refills, Maintenance, 02/07/23 12:33:00 EDT, Tablet, [facility] #[id number], Partial fill upon patient request if the prescription is for a schedule II opioid drug., 175, cm, 02/07/23 12:05:00 EDT... Start Date: 02/07/23 Status: Ordered Problem List Condition Confirmation Course Effective Dates Status Health Status Informant Anemia Confirmed Active Bacteremia Confirmed Active Chronic kidney disease Confirmed Active Liver cirrhosis Confirmed Active CHF (congestive heart failure) Confirmed 2006 Active CAD (coronary artery disease), LAD Confirmed 08/01/13 Active Diabetes mellitus type 2, insulin Confirmed Active Lower extremity edema Confirmed Active Essential hypertension Confirmed Active Status post placement of cardiac pacemaker Confirmed Active Status post transcatheter aortic valve replacement (TAVR) using bioprosthesis Confirmed Active Hyperlipidemia Confirmed Active Hyperlipidemia Confirmed Active Infective endocarditis Confirmed Active Acute kidney injury Confirmed Active Iron deficiency anemia Confirmed Active Hypotension Confirmed Active Prostate cancer 1 Confirmed 2011 Active Neuropathy Confirmed Active ANUJA on CPAP Confirmed Active Old myocardial infarction, NSTEMI, s/p ZORA Confirmed 07/30/13 Active Pericardial effusion, s/p pericardiocentesis Confirmed 2005 Active Pulmonary HTN Confirmed Active Elevated serum creatinine Confirmed Active Abdominal distension Confirmed Active Weight gain Confirmed Active 1Trelestar with 2 doses in September 2012 and again in February 2013. Urologist is Dr. Zafar Roa [facility] ). Social History Social History Type Response Smoking Status Never (less than 100 in lifetime) entered on: 06/02/22 Sex Patient Care team information Care Team Personnel Name: Steff Puentes RN Position: S RN Member Role: Primary Care Nurse Name: Kalyani Miller LPN Position: [facility] RN Member Role: Primary Care Nurse Name: Nadiya Coleman RN Position: [facility] RN Member Role: Primary Care Nurse Name: Tripp Machado RN Position: [facility] RN Member Role: Primary Care Nurse Name: Sobia Hilliard RN Position: [facility] RN Supv Member Role: Primary Care Nurse Name: Lupe Díaz RN Position: [facility] RN Member Role: Primary Care Nurse Name: Betsy Solano RN Position: [facility] RN Member Role: Primary Care Nurse Name: Lorraine Araujo RN Position: S RN Member Role: Primary Care Nurse Name: Adryan Rm RN Position: [facility] RN Member Role: Primary Care Nurse Name: Sher Sandoval RN Position: [facility] RN Member Role: Primary Care Nurse Name: Fely Gaspar Position: [facility] RN Member Role: Primary Care Nurse Name: Tonya Up RN Position: [facility] RN Member Role: Primary Care Nurse Name: Meli Luz LPN Position: [facility] RN Member Role: Primary Care Nurse Name: Matheus Cleveland RN Position: [facility] RN Member Role: Primary Care Nurse Name: Karolina Barcenas RN Position: [facility] RN Member Role: Primary Care Nurse Name: Mercedes Maki Position: S RN Member Role: Primary Care Nurse Name: Edna Horner RN Position: S RN Member Role: Primary Care Nurse Name: Aguila Acevedo LPN Position: S RN Member Role: Primary Care Nurse Name: Les Sahu MD Position: [facility] Renal MD Member Role: Lifetime Consulting Physician Address: Address: [address] [place] [address] [address] [facility], [place] [address]- Name: Gabby Ma RN Position: [facility] SN RN Member Role: Primary Care Nurse Name: Nadia Lainez RN Position: S RN Member Role: Primary Care Nurse Name: Yohannes Watson RN Position: [facility] RN Member Role: Primary Care Nurse Name: Omer Moreno MD Position: [facility] Renal MD Member Role: Lifetime Consulting Physician Address: Address: [address] [place] [address] [facility] [place] [address]- Name: Staci Salgado LPN Position: S RN Member Role: Primary Care Nurse Name: Zo Vivar RN Position: [facility] RN Member Role: Primary Care Nurse Name: Anh Batista RN Position: [facility] RN Member Role: Primary Care Nurse Name: Vita ROONEY, Maninder Sanon Position: Reference Physician Member Role: PCP Address: Address: [address] [place] [address]- Care Team Related Persons Name: DES WRIGHT Address: home [address] [place] [address] Name: GISELA WRIGHT Address: home [place] [address] Name: SURI FLOYD Address: home [address] [place] [address]
--- OUTSIDE RECORDS SUMMARY | 2024-04-15 20:03 | XMS_ITS | Continuity of Care Document ---
Author Organization [facility] ter Address [address] [place] [address]- Care Team Providers Care Electronic Engineering Technician Name Role Phone Vita ROONEY, Maninder Sanon Primary Care Physic naomi Encounter [facility] [place] Date(s): 02/04/23 - 04/08/[address] [address] Attending Physician: Mirella Rojas MD Admitting Physician: Mirella Rojas MD Referring Physician: Mirella Rojas MD Allergies, Adverse Reactions, Alerts Substance Reaction [...] 02/07/23 12:32:00 EDT, Route to Pharmacy Electronically, [facility] #[id number], Partial nikhil... Start Date: 02/07/23 Status: Ordered aspirin 81 mg oral delayed release tablet 81 mg, 1, tablet, By Mouth, Daily, Do not start aspirin until 06/16/2022, # 90 tablet, Refills 0, Tot. Refills 0, Maintenance, 02/07/23 12:28:00 EDT, Route to Pharmacy Electronically, [facility] #[id number], Partial fill upon patient request if t... [...] mmHg and/or heart rate is below 55 [id number], # 180 tablet, Refills 0, Tot. Refills 0, Maintenance, 02/07/23 12:29:00 EDT, Route to Pharmacy Electronically... Start Date: 02/07/23 Status: Ordered Farxiga 10 mg oral tablet 1 tablet = 10 mg, By Mouth, Daily, # 90 tablet, 0 Refills, Maintenance, 02/07/23 12:33:00 EDT, Tablet, [facility] #[id number], Partial fill upon patient request if the prescription is for a schedule II opioid drug., 175, cm, 02/07/23 12:05:00 EDT... Start Date: 02/07/23 Status: Ordered ferrous sulfate 325 mg oral enteric coated tablet 325 mg, 1, tablet, By Mouth, Daily, # 90 tablet, Refills 0, Tot. Refills 0, Maintenance, 02/07/23 12:36:00 EDT, Route to Pharmacy Electronically, [facility] #[id number], Partial fill upon patient request if the prescription is for a schedule II o... Start Date: 02/07/23 Status: Ordered finasteride 5 mg oral tablet 1 tablet = 5 mg, By Mouth, Daily, # 90 tablet, 0 Refills, Maintenance, 02/07/23 12:28:00 EDT, Tablet, [facility] #[id number], Partial fill upon patient request if the [...] 02/07/23 12:31:00 EDT, Route to Pharmacy Electronically, [facility] #[id number], Partial fill... Start Date: 02/07/23 Status: Ordered lidocaine 5% topical film 1 patch, Topically, Daily, Apply to back of the neck tender point, 12 hours on then 12 hours off., # 30 patch, 0 Refills, Maintenance, 02/07/23 12:30:00 EDT, Patch, [facility] #[id number], Partial fill upon patient request if the prescription is... Start Date: 02/07/23 Status: Ordered Lipitor 80 mg oral tablet 1 tablet = 80 mg, By Mouth, Daily, # 90 tablet, 0 Refills, Maintenance, 02/07/23 12:28:00 EDT, Tablet, [facility] #[id number], 175, cm, 02/07/23 12:05:00 EDT, Height, 94, kg, 01/23/23 9:15:00 EDT, Dry Weight Start Date: 02/07/23 Status: Ordered midodrine 10 mg oral tablet 1 tablet = 10 mg, By Mouth, 3 times a day, To help maintain systolic blood pressure above 110-120 mmHg, # 90 tablet, 2 Refills, Maintenance, 02/07/23 12:33:00 EDT, Tablet, [facility] #[id number], Partial fill upon patient request if the prescript... Start Date: 02/07/23 Status: Ordered Narcan 4 mg/0.1 mL nasal spray = 4 mg, Nares, Both, Once, PRN Other, To reverse opioid overdose, administer to each nostril, may repeat every 2 to 3 minutes until patient responds, call 911 in the meantime., # 2 each, 0 Refills, Soft Stop, 02/07/23 12:41:00 EDT, [facility]... Start Date: 02/07/23 Status: Ordered NovoLOG [...] 02/07/23 12:29:00 EDT, Route to Pharmacy Electronically, [facility] #[id number],Partial fill upon patient request if the prescripti... [...] 0 Refills, Maintenance, 02/07/23 12:33:00 EDT, Tablet, [facility] #[id number], Partial fill upon patient request if the [...] February 2013. Urologist is Dr. Zafar Roa [facility] ). Social History Social History Type Response Smoking Status Never (less than 100 in lifetime) entered on: 06/02/22 Sex Patient Care team information Care Team Personnel Name: Kalyani Miller LPN Position: S RN Member Role: Primary Care Nurse Name: Nadiya Coleman RN Position: [facility] RN Member Role: Primary Care Nurse Name: Sobia Hilliard RN Position: S RN Supv Member Role: Primary Care Nurse Name: Lupe Díaz RN Position: [facility] RN Member Role: Primary Care Nurse Name: Lorraine Araujo RN Position: [facility] AMB Nurse Member Role: Primary Care Nurse Name: Adryan Rm RN Position: [facility] RN Member Role: Primary Care Nurse Name: Peg Trinidad RN Position: [facility] RN Member Role: Primary Care Nurse Name: Fely Gaspar Position: [facility] RN Member Role: Primary Care Nurse Name: Meli Luz LPN Position: [facility] RN Member Role: Primary Care Nurse Name: Matheus Cleveland RN Position: [facility] RN Member Role: Primary Care Nurse Name: Mercedes Maki Position: [facility] RN Member Role: Primary Care Nurse Name: Les Sahu MD Position: [facility] Renal MD Member Role: Lifetime Consulting Physician Address: Address: [address] [facility] [facility] [address] [facility], [place] [address]- Name: Gabby Ma RN Position: [facility] SN RN Member Role: Primary Care Nurse Name: Huyen Griffin Position: [facility] RN Member Role: Primary Care Nurse Name: Zo Vivar RN Position: [facility] RN Member Role: Primary Care Nurse Name: Vita ROONEY, Maninder Sanon Position: Reference Physician Member Role: PCP Address: Address: [address] [place] [address]- Care Team Related Persons Name: DES WRIGHT Address: home [address] [place] [address] Name: GISELA WRIGHT Address: home [facility]KNOWN [place] [address]
--- OUTSIDE RECORDS SUMMARY | 2024-04-15 20:03 | XMS_ITS | Continuity of Care Document ---
Author Organization [facility] ter Address [address] [place] [address]- Care Team Providers Care Associate Medical Director Name Role Phone Vita ROONEY, Maninder Sanon Primary Care Physic naomi Encounter [facility] [place] Date(s): 02/04/23 - 03/21/[address] [address] Attending Physician: Mirella Rojas MD Admitting Physician: [...] 02/07/23 12:32:00 EDT, Route to Pharmacy Electronically, [facility] #[id number], Partial nikhil... Start Date: 02/07/23 Status: Ordered aspirin 81 mg oral delayed release tablet 81 mg, 1, tablet, By Mouth, Daily, Do not start aspirin until 06/16/2022, # 90 tablet, Refills 0, Tot. Refills 0, Maintenance, 02/07/23 12:28:00 EDT, Route to Pharmacy Electronically, [facility] #[id number], Partial fill upon patient request if t... [...] mmHg and/or heart rate is below 55 [id number], # 180 tablet, Refills 0, Tot. Refills 0, Maintenance, 02/07/23 12:29:00 EDT, Route to Pharmacy Electronically... Start Date: 02/07/23 Status: Ordered Farxiga 10 mg oral tablet 1 tablet = 10 mg, By Mouth, Daily, # 90 tablet, 0 Refills, Maintenance, 02/07/23 12:33:00 EDT, Tablet, [facility] #[id number], Partial fill upon patient request if the prescription is for a schedule II opioid drug., 175, cm, 02/07/23 12:05:00 EDT... Start Date: 02/07/23 Status: Ordered ferrous sulfate 325 mg oral enteric coated tablet 325 mg, 1, tablet, By Mouth, Daily, # 90 tablet, Refills 0, Tot. Refills 0, Maintenance, 02/07/23 12:36:00 EDT, Route to Pharmacy Electronically, [facility] #[id number], Partial fill upon patient request if the prescription is for a schedule II o... Start Date: 02/07/23 Status: Ordered finasteride 5 mg oral tablet 1 tablet = 5 mg, By Mouth, Daily, # 90 tablet, 0 Refills, Maintenance, 02/07/23 12:28:00 EDT, Tablet, [facility] #[id number], Partial fill upon patient request if the [...] 02/07/23 12:31:00 EDT, Route to Pharmacy Electronically, [facility] #[id number], Partial fill... Start Date: 02/07/23 Status: Ordered lidocaine 5% topical film 1 patch, Topically, Daily, Apply to back of the neck tender point, 12 hours on then 12 hours off., # 30 patch, 0 Refills, Maintenance, 02/07/23 12:30:00 EDT, Patch, [facility] #[id number], Partial fill upon patient request if the prescription is... Start Date: 02/07/23 Status: Ordered Lipitor 80 mg oral tablet 1 tablet = 80 mg, By Mouth, Daily, # 90 tablet, 0 Refills, Maintenance, 02/07/23 12:28:00 EDT, Tablet, [facility] #[id number], 175, cm, 02/07/23 12:05:00 EDT, Height, 94, kg, 01/23/23 9:15:00 EDT, Dry Weight Start Date: 02/07/23 Status: Ordered midodrine 10 mg oral tablet 1 tablet = 10 mg, By Mouth, 3 times a day, To help maintain systolic blood pressure above 110-120 mmHg, # 90 tablet, 2 Refills, Maintenance, 02/07/23 12:33:00 EDT, Tablet, [facility] #[id number], Partial fill upon patient request if the prescript... Start Date: 02/07/23 Status: Ordered Narcan 4 mg/0.1 mL nasal spray = 4 mg, Nares, Both, Once, PRN Other, To reverse opioid overdose, administer to each nostril, may repeat every 2 to 3 minutes until patient responds, call 911 in the meantime., # 2 each, 0 Refills, Soft Stop, 02/07/23 12:41:00 EDT, [facility]... Start Date: 02/07/23 Status: Ordered NovoLOG [...] 02/07/23 12:29:00 EDT, Route to Pharmacy Electronically, [facility] #[id number],Partial fill upon patient request if the prescripti... [...] 0 Refills, Maintenance, 02/07/23 12:33:00 EDT, Tablet, [facility] #[id number], Partial fill upon patient request if the [...] February 2013. Urologist is Dr. Zafar [facility]a [facility] ). Social History Social History Type [...] Care Nurse Name: Lorraine Araujo RN Position: [facility] AMB Nurse Member Role: Primary Care Nurse Name: Adryan Rm RN Position: [facility] RN Member Role: Primary Care Nurse Name: Peg Trinidad RN Position: [facility] RN Member Role: Primary Care Nurse Name: Fely Gaspar Position: [facility] RN Member Role: Primary Care Nurse Name: Meli Luz LPN Position: [facility] RN Member Role: Primary Care Nurse Name: Matheus Cleveland RN Position: [facility] RN Member Role: Primary Care Nurse Name: Mercedes Maki Position: [facility] RN Member Role: Primary Care Nurse Name: Les Sahu MD Position: [facility] Renal MD Member Role: Lifetime Consulting Physician Address: Address: [address] [facility], [place] [address]- Name: Gabby Ma RN Position: [facility] SN RN Member Role: Primary Care Nurse Name: Huyen Griffin Position: [facility] RN Member Role: Primary Care Nurse Name: Zo Vivar RN Position: [facility] RN Member Role: Primary Care Nurse Name: Vita ROONEY, Maninder Sanon Position: Reference Physician Member Role: PCP Address: Address: [address] [place] [address]- Care Team Related Persons Name: DES WRIGHT Address: home [address] [place] [address] Name: GISELA WRIGHT Address: [place] [address]
--- OUTSIDE RECORDS SUMMARY | 2024-04-15 20:03 | XMS_ITS | Continuity of Care Document ---
Author Organization [facility] ter Address [address] [place] [id number]- Care Team Providers Care Admissions Representative Name Role Phone Vita ROONEY, Maninder Sanon Primary Care Physic naomi Encounter [facility] [place] Date(s): 02/04/23 - 03/24/[address] [id number] Attending Physician: Mirella Rojas MD [...] 02/07/23 12:32:00 EDT, Route to Pharmacy Electronically, [facility] #[id number], Partial nikhil... Start Date: 02/07/23 Status: Ordered aspirin 81 mg oral delayed release tablet 81 mg, 1, tablet, By Mouth, Daily, Do not start aspirin until 06/16/2022, # 90 tablet, Refills 0, Tot. Refills 0, Maintenance, 02/07/23 12:28:00 EDT, Route to Pharmacy Electronically, [facility] #[id number], Partial fill upon patient request if t... [...] mmHg and/or heart rate is below 55 [id number], # 180 tablet, Refills 0, Tot. Refills 0, Maintenance, 02/07/23 12:29:00 EDT, Route to Pharmacy Electronically... Start Date: 02/07/23 Status: Ordered Farxiga 10 mg oral tablet 1 tablet = 10 mg, By Mouth, Daily, # 90 tablet, 0 Refills, Maintenance, 02/07/23 12:33:00 EDT, Tablet, [facility] #[id number], Partial fill upon patient request if the prescription is for a schedule II opioid drug., 175, cm, 02/07/23 12:05:00 EDT... Start Date: 02/07/23 Status: Ordered ferrous sulfate 325 mg oral enteric coated tablet 325 mg, 1, tablet, By Mouth, Daily, # 90 tablet, Refills 0, Tot. Refills 0, Maintenance, 02/07/23 12:36:00 EDT, Route to Pharmacy Electronically, [facility] #[id number], Partial fill upon patient request if the prescription is for a schedule II o... Start Date: 02/07/23 Status: Ordered finasteride 5 mg oral tablet 1 tablet = 5 mg, By Mouth, Daily, # 90 tablet, 0 Refills, Maintenance, 02/07/23 12:28:00 EDT, Tablet, [facility] #[id number], Partial fill upon patient request if the [...] 02/07/23 12:31:00 EDT, Route to Pharmacy Electronically, [facility] #[id number], Partial fill... Start Date: 02/07/23 Status: Ordered lidocaine 5% topical film 1 patch, Topically, Daily, Apply to back of the neck tender point, 12 hours on then 12 hours off., # 30 patch, 0 Refills, Maintenance, 02/07/23 12:30:00 EDT, Patch, [facility] #[id number], Partial fill upon patient request if the prescription is... Start Date: 02/07/23 Status: Ordered Lipitor 80 mg oral tablet 1 tablet = 80 mg, By Mouth, Daily, # 90 tablet, 0 Refills, Maintenance, 02/07/23 12:28:00 EDT, Tablet, [facility] #[id number], 175, cm, 02/07/23 12:05:00 EDT, Height, 94, kg, 01/23/23 9:15:00 EDT, Dry Weight Start Date: 02/07/23 Status: Ordered midodrine 10 mg oral tablet 1 tablet = 10 mg, By Mouth, 3 times a day, To help maintain systolic blood pressure above 110-120 mmHg, # 90 tablet, 2 Refills, Maintenance, 02/07/23 12:33:00 EDT, Tablet, [facility] #[id number], Partial fill upon patient request if the prescript... Start Date: 02/07/23 Status: Ordered Narcan 4 mg/0.1 mL nasal spray = 4 mg, Nares, Both, Once, PRN Other, To reverse opioid overdose, administer to each nostril, may repeat every 2 to 3 minutes until patient responds, call 911 in the meantime., # 2 each, 0 Refills, Soft Stop, 02/07/23 12:41:00 EDT, [facility]... Start Date: 02/07/23 Status: Ordered NovoLOG [...] 02/07/23 12:29:00 EDT, Route to Pharmacy Electronically, [facility] #[id number],Partial fill upon patient request if the prescripti... [...] 0 Refills, Maintenance, 02/07/23 12:33:00 EDT, Tablet, [facility] #[id number], Partial fill upon patient request if the [...] February 2013. Urologist is Dr. Zafar Roa [facility] ). Social History Social History Type [...] Care Nurse Name: Lorraine Araujo RN Position: [facility] Nurse Member Role: Primary Care Nurse Name: Adryan Rm RN Position: [facility] RN Member Role: Primary Care Nurse Name: Peg Trinidad RN Position: [facility] RN Member Role: Primary Care Nurse Name: Fely Gaspar Position: [facility] RN Member Role: Primary Care Nurse Name: Meli Luz LPN Position: [facility] RN Member Role: Primary Care Nurse Name: Matheus Cleveland RN Position: [facility] RN Member Role: Primary Care Nurse Name: Mercedes Maki Position: [facility] RN Member Role: Primary Care Nurse Name: Les Sahu MD Position: [facility] Renal MD Member Role: Lifetime Consulting Physician Address: Address: [address] [facility], [place] [address]- Name: Gabby Ma RN Position: [facility] SN RN Member Role: Primary Care Nurse Name: Huyen Griffin Position: [facility] RN Member Role: Primary Care Nurse Name: Zo Vivar RN Position: [facility] RN Member Role: Primary Care Nurse Name: Vita ROONEY, Maninder Sanon Position: Reference Physician Member Role: PCP Address: Address: [address] [place] [address]- Care Team Related Persons Name: DES WRIGHT Address: home [address] [place] [address] Name: GISELA WRIGHT Address: home [facility] [place] [address]
--- OUTSIDE RECORDS SUMMARY | 2024-04-15 20:03 | XMS_ITS | Continuity of Care Document ---
Author Organization [facility] ter Address [address] [place] [id number]- Care Team Providers Care Coffee Bar Attendant Name Role Phone Vita ROONEY, Maninder Sanon Primary Care Physic naomi Encounter [facility] [place] Date(s): 02/04/23 - 03/11/[address] [id number] Attending Physician: Mirella Rojas MD Admitting Physician: [...] 02/07/23 12:32:00 EDT, Route to Pharmacy Electronically, [facility] #[id number], Partial nikhil... Start Date: 02/07/23 Status: Ordered aspirin 81 mg oral delayed release tablet 81 mg, 1, tablet, By Mouth, Daily, Do not start aspirin until 06/16/2022, # 90 tablet, Refills 0, Tot. Refills 0, Maintenance, 02/07/23 12:28:00 EDT, Route to Pharmacy Electronically, [facility] #[id number], Partial fill upon patient request if t... [...] mmHg and/or heart rate is below 55 [id number], # 180 tablet, Refills 0, Tot. Refills 0, Maintenance, 02/07/23 12:29:00 EDT, Route to Pharmacy Electronically... Start Date: 02/07/23 Status: Ordered Farxiga 10 mg oral tablet 1 tablet = 10 mg, By Mouth, Daily, # 90 tablet, 0 Refills, Maintenance, 02/07/23 12:33:00 EDT, Tablet, [facility] #[id number], Partial fill upon patient request if the prescription is for a schedule II opioid drug., 175, cm, 02/07/23 12:05:00 EDT... Start Date: 02/07/23 Status: Ordered ferrous sulfate 325 mg oral enteric coated tablet 325 mg, 1, tablet, By Mouth, Daily, # 90 tablet, Refills 0, Tot. Refills 0, Maintenance, 02/07/23 12:36:00 EDT, Route to Pharmacy Electronically, [facility] #[id number], Partial fill upon patient request if the prescription is for a schedule II o... Start Date: 02/07/23 Status: Ordered finasteride 5 mg oral tablet 1 tablet = 5 mg, By Mouth, Daily, # 90 tablet, 0 Refills, Maintenance, 02/07/23 12:28:00 EDT, Tablet, [facility] #[id number], Partial fill upon patient request if the [...] 02/07/23 12:31:00 EDT, Route to Pharmacy Electronically, [facility] #[id number], Partial fill... Start Date: 02/07/23 Status: Ordered lidocaine 5% topical film 1 patch, Topically, Daily, Apply to back of the neck tender point, 12 hours on then 12 hours off., # 30 patch, 0 Refills, Maintenance, 02/07/23 12:30:00 EDT, Patch, [facility] #[id number], Partial fill upon patient request if the prescription is... Start Date: 02/07/23 Status: Ordered Lipitor 80 mg oral tablet 1 tablet = 80 mg, By Mouth, Daily, # 90 tablet, 0 Refills, Maintenance, 02/07/23 12:28:00 EDT, Tablet, [facility] #[id number], 175, cm, 02/07/23 12:05:00 EDT, Height, 94, kg, 01/23/23 9:15:00 EDT, Dry Weight Start Date: 02/07/23 Status: Ordered midodrine 10 mg oral tablet 1 tablet = 10 mg, By Mouth, 3 times a day, To help maintain systolic blood pressure above 110-120 mmHg, # 90 tablet, 2 Refills, Maintenance, 02/07/23 12:33:00 EDT, Tablet, [facility] #[id number], Partial fill upon patient request if the prescript... Start Date: 02/07/23 Status: Ordered Narcan 4 mg/0.1 mL nasal spray = 4 mg, Nares, Both, Once, PRN Other, To reverse opioid overdose, administer to each nostril, may repeat every 2 to 3 minutes until patient responds, call 911 in the meantime., # 2 each, 0 Refills, Soft Stop, 02/07/23 12:41:00 EDT, [facility]... Start Date: 02/07/23 Status: Ordered NovoLOG [...] 02/07/23 12:29:00 EDT, Route to Pharmacy Electronically, [facility] #[id number],Partial fill upon patient request if the prescripti... [...] 0 Refills, Maintenance, 02/07/23 12:33:00 EDT, Tablet, [facility] #[id number], Partial fill upon patient request if the [...] February 2013. Urologist is Dr. Zafar Roa [facility] ). Social History Social History Type Response Smoking Status Never (less than 100 in lifetime) entered on: 06/02/22 Sex Patient Care team information Care Team Personnel Name: Kalyani Miller LPN Position: S RN Member Role: Primary Care Nurse Name: Naidya Coleman RN Position: [facility] RN Member Role: Primary Care Nurse Name: Sobia Hilliard RN Position: S RN Supv Member Role: Primary Care Nurse Name: Lupe Díaz RN Position: [facility] RN Member Role: Primary Care Nurse Name: Lorraine Araujo RN Position: [facility] Nurse Member Role: Primary Care Nurse Name: Adryan Rm RN Position: [facility] RN Member Role: Primary Care Nurse Name: Peg Trinidad RN Position: [facility] RN Member Role: Primary Care Nurse Name: Fely Gaspar Position: [facility] RN Member Role: Primary Care Nurse Name: Meli Luz LPN Position: [facility] RN Member Role: Primary Care Nurse Name: Matheus Cleveland RN Position: [facility] RN Member Role: Primary Care Nurse Name: Mercedes Maki Position: [facility] RN Member Role: Primary Care Nurse Name: Les Sahu MD Position: [facility] Renal MD Member Role: Lifetime Consulting Physician Address: Address: [address] [facility], [place] [address]- Name: Gabby Ma RN Position: [facility] SN RN Member Role: Primary Care Nurse Name: Huyen Griffin Position: [facility] RN Member Role: Primary Care Nurse Name: Zo Vivar RN Position: [facility] RN Member Role: Primary Care Nurse Name: Vita ROONEY, Maninder Sanon Position: Reference Physician Member Role: PCP Address: Address: [address] [place] [address]- Care Team Related Persons Name: DES WRIGHT Address: [address] [place] [address] Name: GISELA WRIGHT Address: [place] [address]
--- OUTSIDE RECORDS SUMMARY | 2024-04-15 20:03 | XMS_ITS | Continuity of Care Document ---
Author Organization [facility] ter Address [address] [place] [address]- Care Team Providers Care Obstetrics Gynecology Md Name Role Phone Vita ROONEY, Maninder Sanon Primary Care Physic naomi Encounter [facility] Date(s): 06/08/22 - 06/13/[address] [address] Discharge Disposition: A-D/C Home Attending Physician: Matthieu Ortiz MD Admitting Physician: Abhilash Duran MD Referring Physician: Abhilash Duran MD Allergies, Adverse Reactions, Alerts Substance Reaction Severity Status lisinopril 1 throat swelling Active Contrast Dye Unknown Unknown Active pregabalin hallucination Active TiZANidine Hydrochloride hallucination Ac tive Latex Rash Active 1throat swelling Immunizations Given and Recorded Vaccine Date Status Refusal Reason SARS-CoV-2 (COVID-19) mRNA-1273 vaccine 10/11/21 R ecorded SARS-CoV-2 (COVID-19) mRNA-1273 vaccine 11/14/20 R ecorded SARS-CoV-2 (COVID-19) mRNA-1273 vaccine 10/17/20 R ecorded pneumococcal 23-valent vaccine 07/16/20 Recorded tetanus-diphtheria toxoids (Td) 06/16/19 Recorded Medications acetaminophen 325 mg oral tablet 650 mg, By Mouth, Every 6 hours, PRN, Refills 0, Maintenance, Pain , Mild, 06/13/22 13:33:00 EDT, Partial fill upon patient request if the prescription is for a schedule II opioid drug. Start Date: 06/13/22 Status: Ordered ALPRAZolam 0.5 mg oral tablet 0.5 mg, 1, tablet, By Mouth, 2 times a day, Refills 0, Maintenance, 06/02/22 7:16:00 EDT, Partial fill upon patient request if the prescription is for a schedule II opioid drug. Start Date: 06/02/22 Status: Ordered aspirin 81 mg oral delayed release tablet 81 mg, 1, tablet, By Mouth, Daily, Do not start aspirin until 06/16/2022, # 30 tablet, Refills 0, Tot. Refills 0, Maintenance, 06/16/22 13:34:00 EDT, Route to Pharmacy Electronically, [facility] #[id number], Partial fill upon patient request if t... Start Date: 06/16/22 Status: Ordered dicyclomine 20 mg oral tablet 1 tablet = 20 mg, By Mouth, 3 times a day, 0 Refills, Maintenance, 06/02/22 7:14:00 EDT, Partial fill upon patient request if the prescription is for a schedule II opioid drug. Start Date: 06/02/22 Status: Ordered ferrous sulfate 325 mg oral enteric coated tablet 650 mg, 2, tablet, By Mouth, Daily, Refills 0, Maintenance, 02/10/19 13:44:26 EDT Start Date: 02/10/19 Status: Ordered Gabapentin 200 mg, Capsule, By Mouth, 06/13/22 9:00:00 EDT Start Date: 06/13/22 Stop Date: 06/13/22 Status: Completed gabapentin 400 mg oral capsule 400 mg, 1, capsule, By Mouth, 3 times a day, # 15 capsule, Refills 0, Maintenance, 06/08/22 13:24:00 EDT, Partial fill upon patient request if the prescription is for a schedule II opioid drug. Start Date: 06/08/22 Status: Ordered Lasix 20 mg oral tablet 20 mg, 1, tablet, By Mouth, Daily, # 30 tablet, Refills 0, Tot. Refills 0, Maintenance, 06/13/22 13:34:00 EDT, Route to Pharmacy Electronically, [facility] #[id number], Partial fill upon patientrequest if the prescription is for a schedule II op... Start Date: 06/13/22 Status: Ordered Lipitor 80 mg oral tablet 1 tablet = 80 mg, By Mouth, Daily, # 90 tablet, 0 Refills, Maintenance, 01/11/22 16:18:00 EDT, Tablet, [facility], 175.2, cm, 01/11/22 13:55:00 EDT, Height, 100.1, kg, 01/09/2212:22:00 EDT, Dry Weight Start Date: 01/11/22 Stop Date: 02/10/22 Status: Ordered metformin 1000 mg oral tablet 1 tablet = 1,000 mg, By Mouth, 2 times a day, # 180 tablet, 0 Refills, Maintenance, Tablet Start Date: 07/30/13 Status: Ordered NovoLOG FlexTouch See Instructions, 2-25 units Subcutaneous Injection 3 times a day before meals and bedtime, 0 Refills, Maintenance, 02/10/19 11:14:18 EDT Start Date: 02/10/19 Status: Ordered Omeprazole = 20 mg, By Mouth, 2 times a day, 0 Refills, Maintenance, 06/02/22 7:15:00 EDT, Partial fill upon patient request if the prescription is for a schedule II opioid drug. Start Date: 06/02/22 Status: Ordered Percocet-5 Tablet 1 tablet, Tablet, By Mouth, Every 4 hours, PRN for Pain , Severe, Routine, 06/09/22 17:58:00 EDT Start Date: 06/09/22 Stop Date: 06/14/22 Status: Discontinued sucralfate 1 gm oral tablet 1 Gm, 1, tablet, By Mouth, 3 times a day before meals and bedtime, Refills 0, Maintenance, 227:15:00 EDT, Partial fill upon patient request if the prescription is for a schedule II opioid drug. Start Date: 06/02/22 Status: Ordered tamsulosin 0.4 mg oral capsule 0.4 mg, 1, capsule, By Mouth, Daily, # 30 capsule, Refills 0, Maintenance, 02/10/19 13:41:50 EDT Start Date: 02/10/19 Status: Ordered Toprol XL 50 mg oral tablet, extended release 50 mg, 1, tablet, By Mouth, Daily, # 30 tablet, Refills 0, Tot. Refills 0, Maintenance, 06/13/22 15:33:00 EDT, Route to Pharmacy Electronically, [facility][id number], Partial fill upon patientrequest if the prescription is for a schedule II op... Start Date: 06/13/22 Status: Ordered Toprol XL 50 mg oral tablet, extended release 50 mg, XL Tablet, By Mouth, 06/13/22 9:00:00 EDT Start Date: 06/13/22 Stop Date: 06/13/22 Status: Completed Tresiba FlexTouch = 65 units, Subcutaneous Infusion, Daily at bedtime, 0 Refills, Maintenance, 02/10/19 11:11:53 EDT Start Date: 02/10/19 Status: Ordered Trulicity Pen 0.75 mg/0.5 mL subcutaneous solution 0.5 mL = 0.75 mg, Subcutaneous Injection, Every week, 0 Refills, Maintenance, 02/10/19 11:13:09 EDT, Solution Start Date: 02/10/19 Status: Ordered Zetia 10 mg oral tablet 1 tablet = 10 mg, By Mouth, Daily, # 30 tablet, 0 Refills, Maintenance, Tablet Start Date: 07/30/13 Status: Ordered Problem List Condition Confirmation Course [...] February 2013. Urologist is Dr. Zafar Roa [facility] ). Results Radiology Reports * Exam Date Time Procedure Performing Provider Status 06/10/22 5:35 AM Chest 2 Views Frontal and Lat Lissa Tariq; Auth (Verified) Notes: (Chest 2 Views Frontal and Lat) Reason For Exam: Postop RESULT: Chest 2 Views Frontal and Lat Chest 2 Views Frontal and Lat Reason: Postop; Clinical Question(s): Line Placement; Pneumothorax; Special Instructions: Patient may go unmonitored. Please keep film at back desk COMPARISON: 06/08/2022 FINDINGS: LINES AND TUBES: Interval placement of a dual lead left subclavian pacer/AICD. LUNGS AND PLEURA: Improving pulmonary edema pattern, affecting the right lung more so than left, with residual areas of mixed interstitial and alveolar edema mainly on the right. Very small amounts of pleural fluid bilaterally blunting the posterior sulci. No pneumothorax. HEART, MEDIASTINUM AND KAYE: Stable cardiac enlargement. Status post TAVR. Normal mediastinal and hilar contour. BONES AND SOFT TISSUES: No acute abnormality. IMPRESSION: 1. Interval placement of pacer/AICD, leads appearing in satisfactory position and no pneumothorax. 2. Residual but improving asymmetric pulmonary edema. WSN: [id number] Ordering Physician: Misael Taylor Dictated By: Surendra Andrade MD Dictated Date/Time: 06/10/22 9:09 am Reviewed By: Surendra Andrade MD Signed By: Surendra Andrade MD Signed Date/Time: 06/10/22 9:09 am Transcribed By: CARLOS Transcribed Date/Time: 06/10/22 9:06 am * Exam Date Time Procedure Performing Provider Status 06/08/22 1:10 PM C-Arm < 1 Hour Ema Morillo; Sam ed Notes: (C-Arm < 1 Hour) Reason For Exam: line placement with c-arm in pt room RESULT: C-Arm < 1 Hour C-Arm < 1 Hour INDICATION: Reason: line placement with c-arm in pt room COMPARISONS: None TECHNIQUE: Fluoroscopy support was provided. There was no radiologist in attendance. FLUOROSCOPY TIME: 25.7 seconds TECHNOLOGIST TIME: 50 minutes FINDINGS: Fluoroscopy support was provided. There was no radiologist in attendance. IMPRESSION: See above. WSN: [id number] Ordering Physician: Abhilash Duran Dictated By: Quinn Roblero MD Dictated Date/Time: 06/10/22 9:36 am Reviewed By: Quinn Roblero MD Signed By: Quinn Roblero MD Signed Date/Time: 06/10/22 9:36 am Transcribed By: CARLOS Transcribed Date/Time: 06/09/22 8:58 pm * Exam Date Time Procedure Performing Provider Status 06/08/22 2:50 PM Chest Portable Dionte Lara (Ve rified) Notes: (Chest Portable) Reason For Exam: CHF RESULT: Chest Portable Chest Portable Reason: CHF; Clinical Question(s): CHF; Order Comment: COMPARISON: 06/03/2022. FINDINGS: LINES AND TUBES: External monitoring leads. RIGHT IJ central venous catheter, tip projecting over the region of the caval atrial junction. LUNGS AND PLEURA: Diffuse patchy bilateral pulmonary opacification likely representing pulmonary edema. No pleural effusion or pneumothorax. HEART, MEDIASTINUM AND KAYE: Stable cardiac silhouette enlargement. Status post TAVR. BONES AND SOFT TISSUES: No acute abnormality. IMPRESSION: Diffuse pulmonary edema. WSN: [id number] Ordering Physician: Michelle Arias Dictated By: Jennifer Gonzalez MD Dictated Date/Time: 06/08/22 5:34 pm Reviewed By: Jennifer Gonzalez MD Signed By: Jennifer Gonzalez MD Signed Date/Time: 06/08/22 5:34 pm Transcribed By: CARLOS Transcribed Date/Time: 06/08/22 5:32 pm Vital Signs Most recent to oldest [Reference Range]: 1 2 3 Height 176 cm (06/13/22 11:45 AM) 176 cm (06/13/22 8:08 AM) 176 cm (06/13/22 4:04 AM) Weight 92.7 kg (06/13/22 6:21 AM) 94.3 kg (06/10/22 3:24 PM) 92.3 kg (06/10/22 2:23 AM) Oxygen Saturation [94-100 %] 96 % (06/13/22 11:45 AM) 91 % *L* (06/13/22 8:08 AM) 95 % (06/13/22 4:04 AM) Pulse Rate [55-90 bpm] 66 bpm (06/13/22 11:45 AM) 68 bpm (06/13/22 9:08 AM) 68 bpm (06/13/22 8:08 AM) Body Mass Index [18.5-24.99 kg/m2] 31.57 kg/m2 *>HHI* (06/08/22 8:45 PM) Blood Pressure [90-138/55-84 mm Hg] 141/51mm Hg *H* (06/13/22 11:45 AM) 120/60mm Hg (06/13/22 9:08 AM) 120/60mm Hg (06/13/22 8:08 AM) Respiratory Rate [16-30 br/min] 18 br/min (06/13/22 11:45 AM) 20 br/min (06/13/22 10:08 AM) 21 br/min (06/13/22 10:08 AM) Temperature [96.8-100.4 DegF] 98.3 DegF (06/13/22 11:45 AM) 98.1 DegF (06/13/22 8:08 AM) 98.2 DegF (06/13/22 4:04 AM) Liters per Minute 2 L/min (06/10/22 11:33 PM) 2 L/min (06/10/22 9:05 PM) 4 L/min (06/10/22 7:28 PM) Mode of Delivery (Oxygen) Room air (06/13/22 11:45 AM) Room air (06/13/22 4:04 AM) Room air (06/12/22 11:58 PM) Blood pressure sites Arm, right (06/13/22 11:45 AM) Arm, left (06/13/22 8:08 AM) Arm, right (06/13/22 4:04 AM) Temperature Route Oral (06/13/22 11:45 AM) Oral (06/13/22 8:08 AM) Oral (06/13/22 4:04 AM) Dry Weight 100.1 kg (06/08/22 8:45 PM) Weight Obtained Via Bed scale (06/10/22 3:24 PM) Bed scale (06/10/22 2:23 AM) Bed scale (06/09/22 6:10 AM) Social History Social History Type Response Smoking Status Never (less than 100 in lifetime) entered on: 06/02/22 Sex Portable XR Chest Views * [facility] , CIS S: TRANSCRIBE Lisa ROONEY, Jennifer R: VERIFY Event Display: Result: Authored Date: [id number] Chest Portable Reason: CHF; Clinical Question(s): CHF; Order Comment: COMPARISON: 06/03/2022. FINDINGS: LINES AND TUBES: External monitoring leads. RIGHT IJ central venous catheter, tip projecting over the region of the caval atrial junction. LUNGS AND PLEURA: Diffuse patchy bilateral pulmonary opacification likely representing pulmonary edema. No pleural effusion or pneumothorax. HEART, MEDIASTINUM AND KAYE: Stable cardiac silhouette enlargement. Status post TAVR. BONES AND SOFT TISSUES: No acute abnormality. IMPRESSION: Diffuse pulmonary edema. WSN: [id number] Ordering Physician: Michelle Arias Dictated By: Jennifer Gonzalez MD Dictated Date/Time: 06/08/22 5:34 pm Reviewed By: Jennifer Gonzalez MD Signed By: Jennifer Gonzalez MD Signed Date/Time: 06/08/22 5:34 pm Transcribed By: CARLOS Transcribed Date/Time: 06/08/22 5:32 pm Note * ANDERSON Blanco S: Surendra Kohli MD: VERIFY Event Display: Result: Authored Date: [id number] Chest 2 Views Frontal and Lat Reason: Postop; Clinical Question(s): Line Placement; Pneumothorax; Special Instructions: Patient may go unmonitored. Please keep film at back desk COMPARISON: 06/08/2022 FINDINGS: LINES AND TUBES: Interval placement of a dual lead left subclavian pacer/AICD. LUNGS AND PLEURA: Improving pulmonary edema pattern, affecting the right lung more so than left, with residual areas of mixed interstitial and alveolar edema mainly on the right. Very small amounts of pleural fluid bilaterally blunting the posterior sulci. No pneumothorax. HEART, MEDIASTINUM AND KAYE: Stable cardiac enlargement. Status post TAVR. Normal mediastinal and hilar contour. BONES AND SOFT TISSUES: No acute abnormality. IMPRESSION: 1. Interval placement of pacer/AICD, leads appearing in satisfactory position and no pneumothorax. 2. Residual but improving asymmetric pulmonary edema. WSN: [id number] Ordering Physician: Misael Taylor Dictated By: Surendra Andrade MD Dictated Date/Time: 06/10/22 9:09 am Reviewed By: Surendra Andrade MD Signed By: Surendra Andrade MD Signed Date/Time: 06/10/22 9:09 am Transcribed By: CARLOS Transcribed Date/Time: 06/10/22 9:06 am * ANDERSON Blanco S: Quinn Villa MD: VERIFY Event Display: Result: Authored Date: [id number] C-Arm < 1 Hour INDICATION: Reason: line placement with c-arm in pt room COMPARISONS: None TECHNIQUE: Fluoroscopy support was provided. There was no radiologist in attendance. FLUOROSCOPY TIME: 25.7 seconds TECHNOLOGIST TIME: 50 minutes FINDINGS: Fluoroscopy support was provided. There was no radiologist in attendance. IMPRESSION: See above. WSN: [id number] Ordering Physician: Abhilash Duran Dictated By: Quinn Roblero MD Dictated Date/Time: 06/10/22 9:36 am Reviewed By: Quinn Roblero MD Signed By: Quinn Roblero MD Signed Date/Time: 06/10/22 9:36 am Transcribed By: CARLOS Transcribed Date/Time: 06/09/22 8:58 pm Patient Care team information Personnel Name: Vita ROONEY, Maninder Sanon Address: Address: [address] [place], [place] [address]
--- OUTSIDE RECORDS SUMMARY | 2024-04-15 20:03 | XMS_ITS | Continuity of Care Document ---
Author Organization [facility] ter Address [address] [place] [address]- Care Team Providers Care Jute Bag Clipper Name Role Phone Vita ROONEY, Maninder Sanon Primary Care Physic naomi Encounter [facility] Date(s): 02/04/23 - 03/19/[address] [address] Attending Physician: Mirella Rojas MD Admitting Physician: Mirella Rojas MD Referring Physician: Mirella Rojas MD Allergies, Adverse Reactions, Alerts Substance Reaction Severity Status lisinopril 1 throat swelling Active TiZANidine Hydrochloride hallucination Ac tive Contrast Dye Unknown Unknown Active Latex Rash Active pregabalin hallucination Active 1throat [...] 02/07/23 12:32:00 EDT, Route to Pharmacy Electronically, [facility] #[id number], Partial nikhil... Start Date: 02/07/23 Status: Ordered aspirin 81 mg oral delayed release tablet 81 mg, 1, tablet, By Mouth, Daily, Do not start aspirin until 06/16/2022, # 90 tablet, Refills 0, Tot. Refills 0, Maintenance, 02/07/23 12:28:00 EDT, Route to Pharmacy Electronically, [facility] #[id number], Partial fill upon patient request if t... [...] mmHg and/or heart rate is below 55 [id number], # 180 tablet, Refills 0, Tot. Refills 0, Maintenance, 02/07/23 12:29:00 EDT, Route to Pharmacy Electronically... Start Date: 02/07/23 Status: Ordered Farxiga 10 mg oral tablet 1 tablet = 10 mg, By Mouth, Daily, # 90 tablet, 0 Refills, Maintenance, 02/07/23 12:33:00 EDT, Tablet, [facility] #[id number], Partial fill upon patient request if the prescription is for a schedule II opioid drug., 175, cm, 02/07/23 12:05:00 EDT... Start Date: 02/07/23 Status: Ordered ferrous sulfate 325 mg oral enteric coated tablet 325 mg, 1, tablet, By Mouth, Daily, # 90 tablet, Refills 0, Tot. Refills 0, Maintenance, 02/07/23 12:36:00 EDT, Route to Pharmacy Electronically, [email or web address] #[id number], Partial fill upon patient request if the prescription is for a schedule II o... Start Date: 02/07/23 Status: Ordered finasteride 5 mg oral tablet 1 tablet = 5 mg, By Mouth, Daily, # 90 tablet, 0 Refills, Maintenance, 02/07/23 12:28:00 EDT, Tablet, [facility] #[id number], Partial fill upon patient request if the [...] 02/07/23 12:31:00 EDT, Route to Pharmacy Electronically, [facility] #[id number], Partial fill... Start Date: 02/07/23 Status: Ordered lidocaine 5% topical film 1 patch, Topically, Daily, Apply to back of the neck tender point, 12 hours on then 12 hours off., # 30 patch, 0 Refills, Maintenance, 02/07/23 12:30:00 EDT, Patch, [facility] #[id number], Partial fill upon patient request if the prescription is... Start Date: 02/07/23 Status: Ordered Lipitor 80 mg oral tablet 1 tablet = 80 mg, By Mouth, Daily, # 90 tablet, 0 Refills, Maintenance, 02/07/23 12:28:00 EDT, Tablet, [facility] #[id number], 175, cm, 02/07/23 12:05:00 EDT, Height, 94, kg, 01/23/23 9:15:00 EDT, Dry Weight Start Date: 02/07/23 Status: Ordered midodrine 10 mg oral tablet 1 tablet = 10 mg, By Mouth, 3 times a day, To help maintain systolic blood pressure above 110-120 mmHg, # 90 tablet, 2 Refills, Maintenance, 02/07/23 12:33:00 EDT, Tablet, [facility] #[id number], Partial fill upon patient request if the prescript... Start Date: 02/07/23 Status: Ordered Narcan 4 mg/0.1 mL nasal spray = 4 mg, Nares, Both, Once, PRN Other, To reverse opioid overdose, administer to each nostril, may repeat every 2 to 3 minutes until patient responds, call 911 in the meantime., # 2 each, 0 Refills, Soft Stop, 02/07/23 12:41:00 EDT, [facility]... Start Date: 02/07/23 Status: Ordered NovoLOG [...] 02/07/23 12:29:00 EDT, Route to Pharmacy Electronically, [facility] #[id number],Partial fill upon patient request if the prescripti... [...] 0 Refills, Maintenance, 02/07/23 12:33:00 EDT, Tablet, [facility] #[id number], Partial fill upon patient request if the [...] February 2013. Urologist is Dr. Zafar Roa [facility] ). Social History Social History Type [...] Care Nurse Name: Lorraine Araujo RN Position: [facility] AMB Nurse Member Role: Primary Care Nurse Name: Adryan Rm RN Position: [facility] RN Member Role: Primary Care Nurse Name: Peg Trinidad RN Position: [facility] RN Member Role: Primary Care Nurse Name: Fely Gaspar Position: [facility] RN Member Role: Primary Care Nurse Name: Meli Luz LPN Position: [facility] RN Member Role: Primary Care Nurse Name: Matheus Cleveland RN Position: [facility] RN Member Role: Primary Care Nurse Name: Mercedes Maki Position: [facility] RN Member Role: Primary Care Nurse Name: Les Sahu MD Position: [facility] Renal MD Member Role: Lifetime Consulting Physician Address: Address: [address] [facility], [place] [address]- Name: Gabby Ma RN Position: [facility] SN RN Member Role: Primary Care Nurse Name: Huyen Griffin Position: [facility] RN Member Role: Primary Care Nurse Name: Zo Vivar RN Position: [facility] RN Member Role: Primary Care Nurse Name: Vita ROONEY, Maninder Sanon Position: Reference Physician Member Role: PCP Address: Address: [address] [place] [address]- Care Team Related Persons Name: DES WRIGHT Address: home [address] [place] [address] Name: GISELA WRIGHT Address: home [place]KNOWN [facility] [place] [address]
--- OUTSIDE RECORDS SUMMARY | 2024-04-15 20:03 | XMS_ITS | Continuity of Care Document ---
Author Organization [facility] ter Address [address] [place] [address]- Care Team Providers Care Precision Farming Specialist Name Role Phone Vita ROONEY, Maninder Sanon Primary Care Physic naomi Encounter [facility] Date(s): 02/04/23 - 03/27/[address] [id number] Attending Physician: Mirella Rojas MD [...] 02/07/23 12:32:00 EDT, Route to Pharmacy Electronically, [facility] #[id number], Partial nikhil... Start Date: 02/07/23 Status: Ordered aspirin 81 mg oral delayed release tablet 81 mg, 1, tablet, By Mouth, Daily, Do not start aspirin until 06/16/2022, # 90 tablet, Refills 0, Tot. Refills 0, Maintenance, 02/07/23 12:28:00 EDT, Route to Pharmacy Electronically, [facility] #[id number], Partial fill upon patient request if t... [...] mmHg and/or heart rate is below 55 [id number], # 180 tablet, Refills 0, Tot. Refills 0, Maintenance, 02/07/23 12:29:00 EDT, Route to Pharmacy Electronically... Start Date: 02/07/23 Status: Ordered Farxiga 10 mg oral tablet 1 tablet = 10 mg, By Mouth, Daily, # 90 tablet, 0 Refills, Maintenance, 02/07/23 12:33:00 EDT, Tablet, [facility] #[id number], Partial fill upon patient request if the prescription is for a schedule II opioid drug., 175, cm, 02/07/23 12:05:00 EDT... Start Date: 02/07/23 Status: Ordered ferrous sulfate 325 mg oral enteric coated tablet 325 mg, 1, tablet, By Mouth, Daily, # 90 tablet, Refills 0, Tot. Refills 0, Maintenance, 02/07/23 12:36:00 EDT, Route to Pharmacy Electronically, [facility] #[id number], Partial fill upon patient request if the prescription is for a schedule II o... Start Date: 02/07/23 Status: Ordered finasteride 5 mg oral tablet 1 tablet = 5 mg, By Mouth, Daily, # 90 tablet, 0 Refills, Maintenance, 02/07/23 12:28:00 EDT, Tablet, [facility] #[id number], Partial fill upon patient request if the [...] 02/07/23 12:31:00 EDT, Route to Pharmacy Electronically, [facility] #[id number], Partial fill... Start Date: 02/07/23 Status: Ordered lidocaine 5% topical film 1 patch, Topically, Daily, Apply to back of the neck tender point, 12 hours on then 12 hours off., # 30 patch, 0 Refills, Maintenance, 02/07/23 12:30:00 EDT, Patch, [facility] #[id number], Partial fill upon patient request if the prescription is... Start Date: 02/07/23 Status: Ordered Lipitor 80 mg oral tablet 1 tablet = 80 mg, By Mouth, Daily, # 90 tablet, 0 Refills, Maintenance, 02/07/23 12:28:00 EDT, Tablet, [facility] #[id number], 175, cm, 02/07/23 12:05:00 EDT, Height, 94, kg, 01/23/23 9:15:00 EDT, Dry Weight Start Date: 02/07/23 Status: Ordered midodrine 10 mg oral tablet 1 tablet = 10 mg, By Mouth, 3 times a day, To help maintain systolic blood pressure above 110-120 mmHg, # 90 tablet, 2 Refills, Maintenance, 02/07/23 12:33:00 EDT, Tablet, [facility] #[id number], Partial fill upon patient request if the prescript... Start Date: 02/07/23 Status: Ordered Narcan 4 mg/0.1 mL nasal spray = 4 mg, Nares, Both, Once, PRN Other, To reverse opioid overdose, administer to each nostril, may repeat every 2 to 3 minutes until patient responds, call 911 in the meantime., # 2 each, 0 Refills, Soft Stop, 02/07/23 12:41:00 EDT, [facility]... Start Date: 02/07/23 Status: Ordered NovoLOG [...] 02/07/23 12:29:00 EDT, Route to Pharmacy Electronically, [facility] #[id number],Partial fill upon patient request if the prescripti... [...] 0 Refills, Maintenance, 02/07/23 12:33:00 EDT, Tablet, [facility] #[id number], Partial fill upon patient request if the [...] February 2013. Urologist is Dr. Zafar [facility] ( [phone]). Social History Social History Type Response Smoking [...] Member Role: Primary Care Nurse Name: Lupe íDaz RN Position: [facility] RN Member Role: Primary Care Nurse Name: Lorraine Araujo RN Position: [facility] AMB Nurse Member Role: Primary Care Nurse Name: Adryan Rm RN Position: [facility] RN Member Role: Primary Care Nurse Name: Peg Trinidad RN Position: [facility] RN Member Role: Primary Care Nurse Name: Fely Gaspar Position: [facility] RN Member Role: Primary Care Nurse Name: Meli Luz LPN Position: [facility] RN Member Role: Primary Care Nurse Name: Matheus Cleveland RN Position: [facility] RN Member Role: Primary Care Nurse Name: Mercedes Maki Position: [facility] RN Member Role: Primary Care Nurse Name: Les Sahu MD Position: [facility] Renal MD Member Role: Lifetime Consulting Physician Address: Address: [address] [facility], [place] [address]- Name: Gabby Ma RN Position: [facility] SN RN Member Role: Primary Care Nurse Name: Huyen Griffin Position: [facility] RN Member Role: Primary Care Nurse Name: Zo Vivar RN Position: [facility] RN Member Role: Primary Care Nurse Name: Vita ROONEY, Maninder Sanon Position: Reference Physician Member Role: PCP Address: Address: [address] [place] [address]- Care Team Related Persons Name: DES WRIGHT Address: home [address] [place] [address] Name: GISELA WRIGHT Address: home [place] [address]
--- OUTSIDE RECORDS SUMMARY | 2024-04-15 20:03 | XMS_ITS | Continuity of Care Document ---
Author Organization [facility] Address [address] [place] [address]- Care Team Providers Care Underwriting Clerk Name Role Phone Vita ROONEY, Maninder Sanon Primary Care Physic naomi Encounter [facility] [place] Date(s): 08/26/23 - 09/25/23 [facility] [address] [place] [address]- Allergies, Adverse Reactions, Alerts Substance Reaction Severity Status lisinopril 1 throat swelling Active Latex Rash Active pregabalin hallucination Active [...] 05/17/24 13:41:00 EDT, 08/21/23 13:41:00 EST, Capsule, [facility] #[id number], Partial fill upon patient request if the prescript... Start Date: 08/21/23 Stop Date: 05/17/24 Status: Ordered amoxicillin 500 mg oral capsule 2 capsule = 1,000 mg, By Mouth, 3 times a day, # 240 capsule, 0 Refills, Maintenance, 07/28/23 10:17:00 EST, [facility] #[id number], Partial fill upon patient request if the prescription is for a schedule II opioid drug., 175.26, cm, 07/24/23 9:5... Start Date: 07/28/23 Stop Date: 09/06/23 Status: Ordered aspirin 81 mg oral delayed release tablet 81 mg, 1, tablet, By Mouth, Daily, Do not start aspirin until 06/16/2022, # 90 tablet, Refills 0, Tot. Refills 0, Maintenance, 02/07/23 12:28:00 EDT, Route to Pharmacy Electronically, [facility] #[id number], Partial fill upon patient request if t... [...] 08/17/23 7:00:00 EST, Route to Pharmacy Electronically, [facility] #[id number], Partial fill upon patient request if the [...] mmHg and/or heart rate is below 55 [id number], # 180 tablet, Refills 0, Tot. Refills 0, Maintenance, 02/07/23 12:29:00 EDT, Route to Pharmacy Electronically... Start Date: 02/07/23 Status: Ordered diclofenac 1% topical gel = 4 Gm, Topically, 4 times a day, PRN Pain , Moderate, # 100 Gm, 0 Refills, Maintenance, 08/15/23 11:37:00 EST, Gel, [facility] #[id number], Partial fill upon patient request if the prescriptionis for a schedule II opioid drug., 175, cm, ... Start Date: 08/15/23 Status: Ordered Farxiga 10 mg oral tablet 1 tablet = 10 mg, By Mouth, Daily, # 90 tablet, 0 Refills, Maintenance, 02/07/23 12:33:00 EDT, Tablet, [facility] #[id number], Partial fill upon patient request if the prescription is for a schedule II opioid drug., 175, cm, 02/07/23 12:05:00 EDT... Start Date: 02/07/23 Status: Ordered ferrous sulfate 325 mg oral enteric coated tablet 325 mg, 1, tablet, By Mouth, Daily, # 90 tablet, Refills 0, Tot. Refills 0, Maintenance, 02/07/23 12:36:00 EDT, Route to Pharmacy Electronically, [facility] #[id number], Partial fill upon patient request if the prescription is for a schedule II o... Start Date: 02/07/23 Status: Ordered finasteride 5 mg oral tablet 1 tablet = 5 mg, By Mouth, Daily, # 90 tablet, 0 Refills, Maintenance, 02/07/23 12:28:00 EDT, Tablet, [facility] #[id number], Partial fill upon patient request if the [...] 07/22/23 9:56:00 EST, Route to Pharmacy Electronically, [facility] #[id number], Partial fill upon patient request if the prescription is for a sche... Start Date: 07/22/23 Status: Ordered lactulose 10 gm/15 ml oral syrup See Instructions, PRN Other, Take 15 mL as needed for constipation, please maintain daily bowel movement, hold for excessive loose stool or diarrhea (more than 3 times a day)., # 480 mL, 0 Refills, Maintenance, 02/07/23 12:36:00 EDT, Syrup, [facility]... Start Date: 02/07/23 Status: Ordered Lipitor 80 mg oral tablet 1 tablet = 80 mg, By Mouth, Daily, # 90 tablet, 0 Refills, Maintenance, 02/07/23 12:28:00 EDT, Tablet, [facility] #[id number], 175, cm, 02/07/23 12:05:00 EDT, Height, 94, kg, 01/23/23 9:15:00 EDT, Dry Weight Start Date: 02/07/23 Status: Ordered midodrine 10 mg oral tablet 1 tablet = 10 mg, By Mouth, 3 times a day, To help maintain systolic blood pressure above 110-120 mmHg, # 90 tablet, 2 Refills, Maintenance, 02/07/23 12:33:00 EDT, Tablet, [facility] #[id number], Partial fill upon patient request if the [...] 02/07/23 12:29:00 EDT, Route to Pharmacy Electronically, [facility] #[id number],Partial fill upon patient request if the prescripti... [...] 0 Refills, Maintenance, 02/07/23 12:33:00 EDT, Tablet, [facility] #[id number], Partial fill upon patient request if the prescription is for a schedule II opioid drug., 175, cm, 02/07/23 12:05:00 EDT... Start Date: 02/07/23 Status: Ordered Problem List Condition Confirmation Course Effective Dates Status Health Status Informant Anemia Confirmed Active Bacteremia Confirmed Active Chronic kidney disease Confirmed Active Liver cirrhosis Confirmed Active CHF (congestive heart failure) Confirmed 2005 Active [...] 07/30/13 Active Pericardial effusion, s/p pericardiocentesis Confirmed 2006 Active Pulmonary HTN Confirmed Active Elevated serum creatinine Confirmed Active Abdominal distension Confirmed Active Weight gain Confirmed Active 1Trelestar with 2 doses in September 2012 and again in February 2013. Urologist is Dr. Zafar Ro[facility] ). Social History Social History Type Response Smoking Status Never (less than 100 in lifetime) entered on: 06/02/22 Sex Patient Care team information Care Team Personnel Name: Steff Puentes RN Position: [facility] RN Member Role: Primary Care Nurse Name: Kalyani Miller LPN Position: [facility] RN Member Role: Primary Care Nurse Name: Nadiya Coleman RN Position: [facility] RN Member Role: Primary Care Nurse Name: Tripp Machado RN Position: [facility] RN Member Role: Primary Care Nurse Name: Sobia Hilliard RN Position: [facility] RN Supv Member Role: Primary Care Nurse Name: Lupe Díaz RN Position: [facility] RN Member Role: Primary Care Nurse Name: Betsy Solano RN Position: [facility] RN Member Role: Primary Care Nurse Name: Lorraine Araujo RN Position: [facility] RN Member Role: Primary Care Nurse Name: Adryan Rm RN Position: [facility] RN Member Role: Primary Care Nurse Name: Sher Sandoval RN Position: [facility] RN Member Role: Primary Care Nurse Name: Fely Gaspar Position: [facility] RN Member Role: Primary Care Nurse Name: Tonya Up RN Position: [facility] RN Member Role: Primary Care Nurse Name: Meli Luz LPN Position: [facility] RN Member Role: Primary Care Nurse Name: Matheus Cleveland RN Position: [facility] RN Member Role: Primary Care Nurse Name: Karolina Barcenas RN Position: [facility] RN Member Role: Primary Care Nurse Name: Mercedes Maki Position: S RN Member Role: Primary Care Nurse Name: Edna Horner RN Position: S RN Member Role: Primary Care Nurse Name: Aguila Acevedo LPN Position: [facility] RN Member Role: Primary Care Nurse Name: Les Sahu MD Position: [facility] Renal MD Member Role: Lifetime Consulting Physician Address: Address: [address] [facility] [place] [address]- Name: Gabby Ma RN Position: [facility] SN RN Member Role: Primary Care Nurse Name: Nadia Lainez RN Position: [facility] RN Member Role: Primary Care Nurse Name: Yohannes Watson RN Position: [facility] RN Member Role: Primary Care Nurse Name: Omer Moreno MD Position: [facility] Renal MD Member Role: Lifetime Consulting Physician Address: Address: [address] [facility] [place] [address]- Name: Staci Salgado LPN Position: [facility] RN Member Role: Primary Care Nurse Name: Zo Vivar RN Position: [facility] RN Member Role: Primary Care Nurse Name: Anh Batista RN Position: [facility] RN Member Role: Primary Care Nurse Name: Maninder Gorman MD Position: Reference Physician Member Role: PCP Address: Address: [address] [place] [address]- Care Team Related Persons Name: DES WRIGHT Address: home [address] [place] [address] Name: GISELA WRIGHT Address: [place] [address] Name: SURI FLOYD Address: home [address] [place] [address]
--- OUTSIDE RECORDS SUMMARY | 2024-04-15 20:03 | XMS_ITS | Continuity of Care Document ---
Author Organization [facility] ter Address [address] [place] [address]- Care Team Providers Care International Log[employer] Coordinator Name Role Phone Vita ROONEY, Maninder Sanon Primary Care Physic naomi Encounter [facility] Date(s): 02/04/23 - 04/05/[address] [address] Attending Physician: Mirella Rojas MD [...] 02/07/23 12:32:00 EDT, Route to Pharmacy Electronically, [facility] #[id number], Partial nikhil... Start Date: 02/07/23 Status: Ordered aspirin 81 mg oral delayed release tablet 81 mg, 1, tablet, By Mouth, Daily, Do not start aspirin until 06/16/2022, # 90 tablet, Refills 0, Tot. Refills 0, Maintenance, 02/07/23 12:28:00 EDT, Route to Pharmacy Electronically, [facility] #[id number], Partial fill upon patient request if t... [...] mmHg and/or heart rate is below 55 [id number], # 180 tablet, Refills 0, Tot. Refills 0, Maintenance, 02/07/23 12:29:00 EDT, Route to Pharmacy Electronically... Start Date: 02/07/23 Status: Ordered Farxiga 10 mg oral tablet 1 tablet = 10 mg, By Mouth, Daily, # 90 tablet, 0 Refills, Maintenance, 02/07/23 12:33:00 EDT, Tablet, [facility] #[id number], Partial fill upon patient request if the prescription is for a schedule II opioid drug., 175, cm, 02/07/23 12:05:00 EDT... Start Date: 02/07/23 Status: Ordered ferrous sulfate 325 mg oral enteric coated tablet 325 mg, 1, tablet, By Mouth, Daily, # 90 tablet, Refills 0, Tot. Refills 0, Maintenance, 02/07/23 12:36:00 EDT, Route to Pharmacy Electronically, [facility] #[id number], Partial fill upon patient request if the prescription is for a schedule II o... Start Date: 02/07/23 Status: Ordered finasteride 5 mg oral tablet 1 tablet = 5 mg, By Mouth, Daily, # 90 tablet, 0 Refills, Maintenance, 02/07/23 12:28:00 EDT, Tablet, [facility] #[id number], Partial fill upon patient request if the [...] 02/07/23 12:31:00 EDT, Route to Pharmacy Electronically, [facility] #[id number], Partial fill... Start Date: 02/07/23 Status: Ordered lidocaine 5% topical film 1 patch, Topically, Daily, Apply to back of the neck tender point, 12 hours on then 12 hours off., # 30 patch, 0 Refills, Maintenance, 02/07/23 12:30:00 EDT, Patch, [facility] #[id number], Partial fill upon patient request if the prescription is... Start Date: 02/07/23 Status: Ordered Lipitor 80 mg oral tablet 1 tablet = 80 mg, By Mouth, Daily, # 90 tablet, 0 Refills, Maintenance, 02/07/23 12:28:00 EDT, Tablet, [facility] #[id number], 175, cm, 02/07/23 12:05:00 EDT, Height, 94, kg, 01/23/23 9:15:00 EDT, Dry Weight Start Date: 02/07/23 Status: Ordered midodrine 10 mg oral tablet 1 tablet = 10 mg, By Mouth, 3 times a day, To help maintain systolic blood pressure above 110-120 mmHg, # 90 tablet, 2 Refills, Maintenance, 02/07/23 12:33:00 EDT, Tablet, [facility] #[id number], Partial fill upon patient request if the prescript... Start Date: 02/07/23 Status: Ordered Narcan 4 mg/0.1 mL nasal spray = 4 mg, Nares, Both, Once, PRN Other, To reverse opioid overdose, administer to each nostril, may repeat every 2 to 3 minutes until patient responds, call 911 in the meantime., # 2 each, 0 Refills, Soft Stop, 02/07/23 12:41:00 EDT, [facility] Start Date: 02/07/23 Status: Ordered NovoLOG [...] 02/07/23 12:29:00 EDT, Route to Pharmacy Electronically, [facility] #[id number],Partial fill upon patient request if the prescripti... [...] 0 Refills, Maintenance, 02/07/23 12:33:00 EDT, Tablet, [facility] #[id number], Partial fill upon patient request if the [...] February 2013. Urologist is Dr. Zafar [facility] ). Social History Social History Type [...] Care Nurse Name: Lorraine Araujo RN Position: [facility] AMB Nurse Member Role: Primary Care Nurse Name: Adryan Rm RN Position: [facility] RN Member Role: Primary Care Nurse Name: Peg Trinidad RN Position: [facility] RN Member Role: Primary Care Nurse Name: Fely Gaspar Position: [facility] RN Member Role: Primary Care Nurse Name: Meli Luz LPN Position: [facility] RN Member Role: Primary Care Nurse Name: Matheus Cleveland RN Position: [facility] RN Member Role: Primary Care Nurse Name: Mercedes Maki Position: [facility] RN Member Role: Primary Care Nurse Name: Les Sahu MD Position: [facility] Renal MD Member Role: Lifetime Consulting Physician Address: Address: [address] [facility], [place] [address]- Name: Gabby Ma RN Position: [facility] SN RN Member Role: Primary Care Nurse Name: Huyen Griffin Position: [facility] RN Member Role: Primary Care Nurse Name: Zo Vivar RN Position: [facility] RN Member Role: Primary Care Nurse Name: Vita ROONEY, Maninder Sanon Position: Reference Physician Member Role: PCP Address: Address: [address] [place] [address]- Care Team Related Persons Name: DES WRIGHT Address: home [address] [place] [address] Name: GISELA WRIGHT Address: home [place] [address]
--- OUTSIDE RECORDS SUMMARY | 2024-04-15 20:03 | XMS_ITS | Continuity of Care Document ---
Author Organization [facility] Address [address] [place] [id number]- Care Team Providers Care Care Analyst Name Role Phone Vita ROONEY, Maninder Sanon Primary Care Physic naomi [place] [facility] [place] 06/02/22 - 06/03/[address] [address] Discharge Disposition: A-D/C Home Attending Physician: Matthieu Ortiz MD Admitting Physician: Matthieu Ortiz MD Referring Physician: John ROONEY, Brickeyskarol Allergies, Adverse Reactions, Alerts Substance Reaction Severity Status lisinopril 1 throat swelling Active Contrast Dye Unknown Unknown Active Latex Rash Active 1throat swelling Immunizations Given and Recorded Vaccine Date Status Refusal Reason SARS-CoV-2 (COVID-19) mRNA-1273 vaccine 10/11/21 R ecorded SARS-CoV-2 (COVID-19) mRNA-1273 vaccine 11/14/20 R ecorded SARS-CoV-2 (COVID-19) mRNA-1273 vaccine 10/17/20 R ecorded pneumococcal 23-valent vaccine 07/16/20 Recorded tetanus-diphtheria toxoids (Td) 06/16/19 Recorded Medications ALPRAZolam 0.5 mg oral tablet 0.5 mg, 1, tablet, By Mouth, 3 times a day, Refills 0, Maintenance, 06/02/22 7:16:00 EDT, Partial fill upon patient request if the prescription is for a schedule II opioid drug. Start Date: 06/02/22 Status: Ordered clopidogrel 75 mg oral tablet 75 mg, 1, tablet, By Mouth, Daily, # 30 tablet, Refills 0, Tot. Refills 0, Maintenance, 06/03/22 10:43:00 EDT, Route to Pharmacy Electronically, [facility], Partial fill upon patient request if the prescription is for a schedule II opioi... Start Date: 06/03/22 Status: Ordered dicyclomine 20 mg oral tablet 1 tablet = 20 mg, By Mouth, 4 times a day, 0 Refills, Maintenance, 06/02/22 7:14:00 EDT, Partial fill upon patient request if the prescription is for a schedule II opioid drug. Start Date: 06/02/22 Status: Ordered diphenhydrAMINE 25 mg oral capsule 1 capsule = 25 mg, By Mouth, Once, Take one capsule on the AM of your scheduled TAVR, # 1 capsule, 0 Refills, Soft Stop, 05/26/22 18:09:00 EDT, [facility] #[id number], Partial fill upon patient request if the prescription is for a schedule II opi... Start Date: 05/26/22 Status: Ordered famotidine 20 mg oral tablet 20 mg, 1, tablet, By Mouth, 2 times a day, take one tablet AM on day prior to scheduled TAVR take one tablet PM on day prior to scheduled TAVR take one tablet AM on the day of your scheduled TAVR, # 3 tablet, Refills 0, Tot. Refills 0, Maintenance,... Start Date: 05/26/22 Status: Ordered ferrous sulfate 325 mg oral enteric coated tablet 650 mg, 2, tablet, By Mouth, Daily, Refills 0, Maintenance, 02/10/19 13:44:26 EDT Start Date: 02/10/19 Status: Ordered folic acid 0.8 mg oral tablet 1 tablet = 0.8 mg, By Mouth, Daily, 0 Refills, Maintenance, 02/10/19 13:45:49 EDT Start Date: 02/10/19 Status: Ordered gabapentin 300 mg oral capsule 300 mg, Capsule, By Mouth, 06/03/22 9:00:00 EDT Start Date: 06/03/22 Stop Date: 06/03/22 Status: Completed gabapentin 600 mg oral tablet = 300 mg, By Mouth, 2 times a day, # 30 capsule, 0 Refills, Maintenance, 02/10/19 11:17:57 EDT, Tablet Start Date: 02/10/19 Status: Ordered gemfibrozil 600 mg oral tablet 600 mg, 1, tablet, By Mouth, 2 times a day, Refills 0, Maintenance, 06/02/22 7:14:00 EDT, Partial fill upon patient request if the prescription is for a schedule II opioid drug. Start Date: 06/02/22 Status: Ordered Lipitor 80 mg oral tablet 1 tablet = 80 mg, By Mouth, Daily, # 90 tablet, 0 Refills, Maintenance, 01/11/22 16:18:00 EDT, Tablet, [facility], 175.2, cm, 01/11/22 13:55:00 EDT, Height, 100.1, kg, 01/09/2212:22:00 EDT, Dry Weight Start Date: 01/11/22 Stop Date: 02/10/22 Status: Ordered metformin 1000 mg oral tablet 1 tablet = 1,000 mg, By Mouth, 2 times a day, # 180 tablet, 0 Refills, Maintenance, Tablet Start Date: 07/30/13 Status: Ordered metoprolol 100 mg oral tablet, extended release 100 mg, XL Tablet, By Mouth, 06/03/22 9:00:00 EDT Start Date: 06/03/22 Stop Date: 06/03/22 Status: Completed metoprolol succinate 100 mg oral capsule, extended release 1 capsule = 100 mg, By Mouth, Daily, # 30 capsule, 0 Refills, Maintenance, 01/11/22 16:22:00 EDT, ER Capsule, [facility] #[id number], Partial fill upon patient request if the prescription is fora schedule II opioid drug., 175.2, cm, 01/11/22 13:... Start Date: 01/11/22 Status: Ordered NovoLOG FlexTouch = 20 units, Subcutaneous Injection, 3 times a day before meals and bedtime, 0 Refills, Maintenance,02/10/19 11:14:18 EDT Start Date: 02/10/19 Status: Ordered Omeprazole By Mouth, Daily, 0 Refills, Maintenance, 06/02/22 7:15:00 EDT, Partial fill upon patient request ifthe prescription is for a schedule II opioid drug. Start Date: 06/02/22 Status: Ordered predniSONE 50 mg oral tablet 1 tablet = 50 mg, By Mouth, 2 times a day, take one tablet AM on day prior to scheduled TAVR take one tablet PM on day prior to scheduled TAVR take one tablet AM on the day of your scheduled TAVR with water, # 3 tablet, 0 Refills, Maintenance, 05/15... Start Date: 05/26/22 Status: Ordered raNITIdine 150 mg oral capsule 1 capsule = 150 mg, By Mouth, Daily, 0 Refills, Maintenance, 02/10/19 13:43:45 EDT Start Date: 02/10/19 Status: Ordered sucralfate 1 gm oral tablet 1 Gm, [...] 13:41:50 EDT Start Date: 02/10/19 Status: Ordered torsemide 20 mg oral tablet 1 tablet = 20 mg, By Mouth, Daily, # 30 tablet, 0 Refills, Maintenance, 01/11/22 16:17:00 EDT, Tablet, [facility] #[id number], Partial fill upon patient request if the prescription is for a schedule II opioid drug., 175.2, cm, 01/11/22 13:55:00 E... Start Date: 01/11/22 Status: Ordered Tresiba FlexTouch = 70 units, Subcutaneous Infusion, Daily at bedtime, 0 Refills, Maintenance, 02/10/19 11:11:53 EDT Start Date: 02/10/19 Status: Ordered Trulicity Pen 0.75 mg/0.5 mL subcutaneous solution 0.5 mL = 0.75 mg, Subcutaneous Injection, Every week, 0 Refills, Maintenance, 02/10/19 11:13:09 EDT, Solution Start Date: 02/10/19 Status: Ordered Vitamin B-12 1000 mcg oral tablet 1,000 mcg, 1, tablet, By Mouth, Daily, # 30 tablet, Refills 0, Maintenance, 02/10/19 13:46:21 EDT Start Date: 02/10/19 Status: Ordered Zetia 10 mg oral tablet 1 tablet = 10 mg, By Mouth, Daily, # 30 tablet, 0 Refills, Maintenance, Tablet Start Date: 07/30/13 Status: Ordered Problem List Condition Effective Dates Status Health Status Inform ant CHF (congestive heart failure)(Confirmed) 2005 Active CAD (coronary artery disease ), LAD(Confirmed) 08/01/13 Active Diabetes mellitus type 2, insulin(Confirmed) Active Essential hypertension(Confirmed) Active Hyperlipidemia(Confirmed) Active Iron deficiency anemia(Confirmed) Active Prostate cancer(Confirmed) 2011 Active Neuropathy(Confirmed) Active Obese class I(Confirmed) Active ANUJA on CPAP(Confirmed) Active Old myocardial infarction, N STEMI, 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 Urologist is Dr. Zafar Roa [facility] ). Results Radiology Reports * Exam Date Time Procedure Performing Provider Status 06/03/22 5:34 AM Chest Portable Ginna Acosta; Auth (V erified) Notes: (Chest Portable) Reason For Exam: S/P TAVR;Postop RESULT: Chest Portable AP portable chest, INDICATION: Reason: Postop; S P TAVR; Clinical Question(s): Other:; Cardiac Tamponade COMPARISON: yesterday CXR FINDINGS: LINES AND TUBES: Status post TAVR. LUNGS AND PLEURA AND MEDIASTINUM: There is no pneumothorax. Heart size is enlarged. No significant pleural effusion. Mild pulmonary vascular congestion. IMPRESSION: Stable exam. Mild pulmonary vascular congestion. WSN: [id number] Ordering Physician: Jones Sellers Dictated By: Lou Agrawal MD Dictated Date/Time: 06/03/22 10:41 a Reviewed By: Lou Agrawal MD Signed By: Lou Agrawal MD Signed Date/Time: 06/03/22 10:41 am Transcribed By: CARLOS Transcribed Date/Time: 06/03/22 9:28 am * Exam Date Time Procedure Performing Provider Status 06/02/22 9:37 AM Chest Portable Precious Barraza; Auth (V erified) Notes: (Chest Portable) Reason For Exam: S/P TAVR;Postop RESULT: Chest Portable Chest Portable Reason: Status post TAVR, concern for cardiac tamponade COMPARISON: Chest x-ray 01/10/2022, series 01/09/2022, CT TAVR 02/05/2022 FINDINGS: LINES AND TUBES: None. LUNGS AND PLEURA: Probable, mild left basal atelectasis. Normal pulmonary vascularity. No pleural effusion. No pneumothorax. HEART, MEDIASTINUM AND KAYE: Unchanged moderate prominence of the cardiac silhouette. Replaced aortic valve noted. Normal upper mediastinal and hilar contour. BONES AND SOFT TISSUES: Mild degenerative changes in the thoracic spine. IMPRESSION: 1. Status post TAVR changes. 2. Mild left basilar atelectasis. I have personally reviewed the images and I agree with this report. WSN: [id number] Ordering Physician: Jones Sellers Dictated By: Som Sommers MD Dictated Date/Time: 06/02/22 10:15 a Reviewed By: Clark Powell MD Signed By: Clark Powell MD Signed Date/Time: 06/02/22 10:20 am Transcribed By: CARLOS Transcribed Date/Time: 06/02/22 10:12 am Vital Signs Most recent to oldest [Reference Range]: 1 2 3 Height 176 cm (06/03/22 12:56 PM) 176 cm (06/03/22 12:06 PM) 176 cm (06/03/22 8:01 AM) Weight 97.4 kg (06/03/22 3:34 AM) 97.6 kg (06/02/22 6:49 AM) 97.6 kg (06/02/22 6:49 AM) Oxygen Saturation [94-100 %] 99 % (06/03/22 12:56 PM) 98 % (06/03/22 12:06 PM) 97 % (06/03/22 8:01 AM) Pulse Rate [55-90 bpm] 57 bpm (06/03/22 12:56 PM) 57 bpm (06/03/22 12:06 PM) 55 bpm (06/03/22 8:30 AM) Body Mass Index [18.5-24.99] 31.51 *>HHI* (06/02/22 6:49 AM) Blood Pressure [90-138/55-84 mm Hg] 128/49mm Hg (06/03/22 12:56 PM) 115/52mm Hg (06/03/22 12:06 PM) 129/6mm Hg (06/03/22 8:30 AM) Respiratory Rate [16-30 br/min] 18 br/min (06/03/22 12:56 PM) 18 br/min (06/03/22 12:06 PM) 17 br/min (06/03/22 11:48 AM) Temperature [96.8-100.4 DegF] 97.4 DegF (06/03/22 12:56 PM) 98.0 DegF (06/03/22 12:06 PM) 97.7 DegF (06/03/22 8:01 AM) Mode of Delivery (Oxygen) Room air (06/03/22 12:56 PM) Room air (06/03/22 12:06 PM) Room air (06/03/22 8:01 AM) Blood pressure sites Arm, left (06/03/22 12:56 PM) Arm, left (06/03/22 12:06 PM) Arm, right (06/03/22 8:01 AM) Temperature Route Oral (06/03/22 12:56 PM) Oral (06/03/22 12:06 PM) Oral (06/03/22 8:01 AM) Weight Obtained Via Bed scale (06/03/22 3:34 AM) Bed scale (06/02/22 6:31 PM) Dry Weight Obtained Via Bed scale (06/02/22 6:31 PM) Social History Social History Type Response Smoking Status Never (less than 100 in lifetime) entered on: 06/02/22 Sex Note * [facility] , CIS S: TRANSCRIBE Lou Agrawal MD: VERIFY Event Display: Result: Authored Date: AP portable chest, INDICATION: Reason: Postop; S P TAVR; Clinical Question(s): Other:; Cardiac Tamponade COMPARISON: yesterday CXR FINDINGS: LINES AND TUBES: Status post TAVR. LUNGS AND PLEURA AND MEDIASTINUM: There is no pneumothorax. Heart size is enlarged. No significant pleural effusion. Mild pulmonary vascular congestion. IMPRESSION: Stable exam. Mild pulmonary vascular congestion. WSN: [id number] Ordering Physician: Jones Sellers Dictated By: Lou Agrawal MD Dictated Date/Time: 06/03/22 10:41 a Reviewed By: Lou Agrawal MD Signed By: Lou Agrawal MD Signed Date/Time: 06/03/22 10:41 am Transcribed By: CARLOS Transcribed Date/Time: 06/03/22 9:28 am * [facility] , CIS S: TRANSCRIBE Clark Powell MD: VERIFY Som Sommers MD: SIGN Event Display: Result: Authored Date: [id number] Chest Portable Reason: Status post TAVR, concern for cardiac tamponade COMPARISON: Chest x-ray 01/10/2022, series 01/09/2022, CT TAVR 02/05/2022 FINDINGS: LINES AND TUBES: None. LUNGS AND PLEURA: Probable, mild left basal atelectasis. Normal pulmonary vascularity. No pleural effusion. No pneumothorax. HEART, MEDIASTINUM AND KAYE: Unchanged moderate prominence of the cardiac silhouette. Replaced aortic valve noted. Normal upper mediastinal and hilar contour. BONES AND SOFT TISSUES: Mild degenerative changes in the thoracic spine. IMPRESSION: 1. Status post TAVR changes. 2. Mild left basilar atelectasis. I have personally reviewed the images and I agree with this report. WSN: [id number] Ordering Physician: Jones Sellers Dictated By: Som Sommers MD Dictated Date/Time: 06/02/22 10:15 a Reviewed By: Clark Powell MD Signed By: Clark Powell MD Signed Date/Time: 06/02/22 10:20 am Transcribed By: CARLOS Transcribed Date/Time: 06/02/22 10:12 am Care Team Personnel Name: Maninder Gorman MD Address: [address] [place] [address]
--- OUTSIDE RECORDS SUMMARY | 2024-04-15 20:03 | XMS_ITS | Continuity of Care Document ---
Author Organization [facility] ter Address [address] [place] [id number]- Care Team Providers Care Seismograph Computer Name Role Phone Vita ROONEY, Maninder Sanon Primary Care Physic naomi [place] [facility] [place] 04/[place]/[address] [id number] Attending Physician: Mirella Rojas MD [...] 02/07/23 12:32:00 EDT, Route to Pharmacy Electronically, [facility] #[id number], Partial nikhil... Start Date: 02/07/23 Status: Ordered aspirin 81 mg oral delayed release tablet 81 mg, 1, tablet, By Mouth, Daily, Do not start aspirin until 06/16/2022, # 90 tablet, Refills 0, Tot. Refills 0, Maintenance, 02/07/23 12:28:00 EDT, Route to Pharmacy Electronically, [facility] #[id number], Partial fill upon patient request if t... [...] mmHg and/or heart rate is below 55 [id number], # 180 tablet, Refills 0, Tot. Refills 0, Maintenance, 02/07/23 12:29:00 EDT, Route to Pharmacy Electronically... Start Date: 02/07/23 Status: Ordered Farxiga 10 mg oral tablet 1 tablet = 10 mg, By Mouth, Daily, # 90 tablet, 0 Refills, Maintenance, 02/07/23 12:33:00 EDT, Tablet, [facility] #[id number], Partial fill upon patient request if the prescription is for a schedule II opioid drug., 175, cm, 02/07/23 12:05:00 EDT... Start Date: 02/07/23 Status: Ordered ferrous sulfate 325 mg oral enteric coated tablet 325 mg, 1, tablet, By Mouth, Daily, # 90 tablet, Refills 0, Tot. Refills 0, Maintenance, 02/07/23 12:36:00 EDT, Route to Pharmacy Electronically, [facility] #[id number], Partial fill upon patient request if the prescription is for a schedule II o... Start Date: 02/07/23 Status: Ordered finasteride 5 mg oral tablet 1 tablet = 5 mg, By Mouth, Daily, # 90 tablet, 0 Refills, Maintenance, 02/07/23 12:28:00 EDT, Tablet, [facility] #[id number], Partial fill upon patient request if the [...] 02/07/23 12:31:00 EDT, Route to Pharmacy Electronically, [facility] #[id number], Partial fill... Start Date: 02/07/23 Status: Ordered lidocaine 5% topical film 1 patch, Topically, Daily, Apply to back of the neck tender point, 12 hours on then 12 hours off., # 30 patch, 0 Refills, Maintenance, 02/07/23 12:30:00 EDT, Patch, [facility] #[id number], Partial fill upon patient request if the prescription is... Start Date: 02/07/23 Status: Ordered Lipitor 80 mg oral tablet 1 tablet = 80 mg, By Mouth, Daily, # 90 tablet, 0 Refills, Maintenance, 02/07/23 12:28:00 EDT, Tablet, [facility] #[id number], 175, cm, 02/07/23 12:05:00 EDT, Height, 94, kg, 01/23/23 9:15:00 EDT, Dry Weight Start Date: 02/07/23 Status: Ordered midodrine 10 mg oral tablet 1 tablet = 10 mg, By Mouth, 3 times a day, To help maintain systolic blood pressure above 110-120 mmHg, # 90 tablet, 2 Refills, Maintenance, 02/07/23 12:33:00 EDT, Tablet, [facility] #[id number], Partial fill upon patient request if the prescript... Start Date: 02/07/23 Status: Ordered Narcan 4 mg/0.1 mL nasal spray = 4 mg, Nares, Both, Once, PRN Other, To reverse opioid overdose, administer to each nostril, may repeat every 2 to 3 minutes until patient responds, call 911 in the meantime., # 2 each, 0 Refills, Soft Stop, 02/07/23 12:41:00 EDT, [facility]... Start Date: 02/07/23 Status: Ordered NovoLOG [...] 02/07/23 12:29:00 EDT, Route to Pharmacy Electronically, [facility] #[id number],Partial fill upon patient request if the prescripti... [...] 0 Refills, Maintenance, 02/07/23 12:33:00 EDT, Tablet, [facility] #[id number], Partial fill upon patient request if the [...] February 2013. Urologist is Dr. Zafar Roa [facility] ). Social History Social History Type [...] Role: Lifetime Consulting Physician Address: Address: [address] [facility], [place] [address]- Name: Gabby Ma RN Position: [facility] SN RN Member Role: Primary Care Nurse Name: Huyen Griffin Position: [facility] RN Member Role: Primary Care Nurse Name: Zo Vivar RN Position: [facility] RN Member Role: Primary Care Nurse Name: Vita ROONEY, Maninder Sanon Position: Reference Physician Member Role: PCP Address: Address: [address] [place] [address]- Care Team Related Persons Name: DES WRIGHT Address: [address] [place] [address] Name: GISELA WRIGHT Address: home [place] [address]
--- OUTSIDE RECORDS SUMMARY | 2024-04-15 20:03 | XMS_ITS | Continuity of Care Document ---
Author Organization [facility] Address [address] [place] [address]- Care Team Providers Care Sales Inspector Name Role Phone Vita ROONEY, Maninder Sanon Primary Care Physic naomi Encounter 07/24/23 - 09/18/23 [facility] [address] [place] [address]- Discharge Disposition: CLIENT NO LONGER REQUIRES SKILLED CARE Allergies, Adverse Reactions, Alerts Substance Reaction Severity [...] 05/17/24 13:41:00 EDT, 08/21/23 13:41:00 EST, Capsule, [facility] #[id number], Partial fill upon patient request if the prescript... Start Date: 08/21/23 Stop Date: 05/17/24 Status: Ordered amoxicillin 500 mg oral capsule 2 capsule = 1,000 mg, By Mouth, 3 times a day, # 240 capsule, 0 Refills, Maintenance, 07/28/23 10:17:00 EST, [facility] #[id number], Partial fill upon patient request if the prescription is for a schedule II opioid drug., 175.26, cm, 07/24/23 9:5... Start Date: 07/28/23 Stop Date: 09/06/23 Status: Ordered aspirin 81 mg oral delayed release tablet 81 mg, 1, tablet, By Mouth, Daily, Do not start aspirin until 06/16/2022, # 90 tablet, Refills 0, Tot. Refills 0, Maintenance, 02/07/23 12:28:00 EDT, Route to Pharmacy Electronically, [facility] #[id number], Partial fill upon patient request if t... [...] 08/17/23 7:00:00 EST, Route to Pharmacy Electronically, [facility] #[id number], Partial fill upon patient request if the [...] mmHg and/or heart rate is below 55 [id number], # 180 tablet, Refills 0, Tot. Refills 0, Maintenance, 02/07/23 12:29:00 EDT, Route to Pharmacy Electronically... Start Date: 02/07/23 Status: Ordered diclofenac 1% topical gel = 4 Gm, Topically, 4 times a day, PRN Pain , Moderate, # 100 Gm, 0 Refills, Maintenance, 08/15/23 11:37:00 EST, Gel, [facility] #[id number], Partial fill upon patient request if the prescriptionis for a schedule II opioid drug., 175, cm, ... Start Date: 08/15/23 Status: Ordered Farxiga 10 mg oral tablet 1 tablet = 10 mg, By Mouth, Daily, # 90 tablet, 0 Refills, Maintenance, 02/07/23 12:33:00 EDT, Tablet, [facility] #[id number], Partial fill upon patient request if the prescription is for a schedule II opioid drug., 175, cm, 02/07/23 12:05:00 EDT... Start Date: 02/07/23 Status: Ordered ferrous sulfate 325 mg oral enteric coated tablet 325 mg, 1, tablet, By Mouth, Daily, # 90 tablet, Refills 0, Tot. Refills 0, Maintenance, 02/07/23 12:36:00 EDT, Route to Pharmacy Electronically, [facility] #[id number], Partial fill upon patient request if the prescription is for a schedule II o... Start Date: 02/07/23 Status: Ordered finasteride 5 mg oral tablet 1 tablet = 5 mg, By Mouth, Daily, # 90 tablet, 0 Refills, Maintenance, 02/07/23 12:28:00 EDT, Tablet, [facility] #[id number], Partial fill upon patient request if the [...] 07/22/23 9:56:00 EST, Route to Pharmacy Electronically, [facility] #[id number], Partial fill upon patient request if the prescription is for a sche... Start Date: 07/22/23 Status: Ordered lactulose 10 gm/15 ml oral syrup See Instructions, PRN Other, Take 15 mL as needed for constipation, please maintain daily bowel movement, hold for excessive loose stool or diarrhea (more than 3 times a day)., # 480 mL, 0 Refills, Maintenance, 02/07/23 12:36:00 EDT, [facility] Start Date: 02/07/23 Status: Ordered Lipitor 80 mg oral tablet 1 tablet = 80 mg, By Mouth, Daily, # 90 tablet, 0 Refills, Maintenance, 02/07/23 12:28:00 EDT, Tablet, [facility] #[id number], 175, cm, 02/07/23 12:05:00 EDT, Height, 94, kg, 01/23/23 9:15:00 EDT, Dry Weight Start Date: 02/07/23 Status: Ordered midodrine 10 mg oral tablet 1 tablet = 10 mg, By Mouth, 3 times a day, To help maintain systolic blood pressure above 110-120 mmHg, # 90 tablet, 2 Refills, Maintenance, 02/07/23 12:33:00 EDT, Tablet, [facility] #[id number], Partial fill upon patient request if the [...] 02/07/23 12:29:00 EDT, Route to Pharmacy Electronically, [facility] #[id number],Partial fill upon patient request if the prescripti... [...] 0 Refills, Maintenance, 02/07/23 12:33:00 EDT, Tablet, [facility] #[id number], Partial fill upon patient request if the [...] February 2013. Urologist is Dr. Zafar Roa [facility] ). Social History Social History Type Response Smoking Status Never (less than 100 in lifetime) entered on: 06/02/22 Sex Patient Care team information Care Team Personnel Name: Steff Puentes RN Position: S RN Member Role: Primary Care Nurse Name: Kalyani Miller LPN Position: [facility] RN Member Role: Primary Care Nurse Name: Nadiya Coleman RN Position: S RN Member Role: Primary Care Nurse Name: Tripp Machado RN Position: [facility] RN Member Role: Primary Care Nurse Name: Sobia Hilliard RN Position: [facility] RN Supv Member Role: Primary Care Nurse Name: Lupe Díaz RN Position: [facility] RN Member Role: Primary Care Nurse Name: Betsy Solano RN Position: [facility] RN Member Role: Primary Care Nurse Name: Lorraine Araujo RN Position: [facility] RN Member Role: Primary Care Nurse Name: Adryan Rm RN Position: [facility] RN Member Role: Primary Care Nurse Name: Sher Sandoval RN Position: [facility] RN Member Role: Primary Care Nurse Name: Fely Gaspar Position: [facility] RN Member Role: Primary Care Nurse Name: Tonya Up RN Position: S RN Member Role: Primary Care Nurse Name: Meli Luz LPN Position: [facility] RN Member Role: Primary Care Nurse Name: Matheus Cleveland RN Position: [facility] RN Member Role: Primary Care Nurse Name: Karolina Barcenas RN Position: [facility] RN Member Role: Primary Care Nurse Name: Mercedes Maki Position: S RN Member Role: Primary Care Nurse Name: Edna Horner RN Position: S RN Member Role: Primary Care Nurse Name: Aguila Acevedo LPN Position: S RN Member Role: Primary Care Nurse Name: Les Sahu MD Position: [facility] Renal MD Member Role: Lifetime Consulting Physician Address: Address: [address] [facility] [address] [facility] [address] [facility] [place] [address]- Name: Gabby Ma RN Position: [facility] SN RN Member Role: Primary Care Nurse Name: Nadia Lainez RN Position: S RN Member Role: Primary Care Nurse Name: Yohannes Watson RN Position: S RN Member Role: Primary Care Nurse Name: Omer Moreno MD Position: [facility] Renal MD Member Role: Lifetime Consulting Physician Address: Address: [address] [place] [address] [facility] [place] [address]- Name: Staci Salgado LPN Position: [facility] RN Member Role: Primary Care Nurse Name: Zo Vivar RN Position: [facility] RN Member Role: Primary Care Nurse Name: Anh Batista RN Position: [facility] RN Member Role: Primary Care Nurse Name: Maninder Gorman MD Position: Reference Physician Member Role: PCP Address: Address: [address] [place] [address]- Care Team Related Persons Name: DES WRIGHT Address: home [address] [place] [address] Name: GISELA WRIGHT Address: [place] [address] Name: SURI FLOYD Address: home [address] [place] [address]
--- OUTSIDE RECORDS SUMMARY | 2024-04-15 20:03 | XMS_ITS | Continuity of Care Document ---
Author Organization [facility] Raquel yuri Address [address] [place], [place] [address]alejandra [place] [address]- Care Team Providers Care Biological Technician Name Role Phone Vita ROONEY, Maninder Sanon Primary Care Physic naomi [place] [facility] [place] 02/26/22 - 03/28/22 [facility] [address] [place] [address]- Allergies, Adverse Reactions, Alerts Substance Reaction Severity Status lisinopril 1 throat swelling Active Contrast Dye Unknown Unknown Active Latex Rash Active 1throat swelling Medications aspirin 81 mg oral delayed release tablet 81 mg, By Mouth, Daily, # 30 tablet, Refills 2, Tot. Refills 2, Maintenance, 01/11/22 16:18:00 EDT,Route to Pharmacy Electronically, [facility] #[id number], Partial fill upon patient request ifthe prescription is for a schedule II opioid drug.,... Start Date: 01/11/22 Stop Date: 04/11/22 Status: Ordered clopidogrel 75 mg oral tablet 75 mg, 1, tablet, By Mouth, Daily, # 30 tablet, Refills 0, Tot. Refills 0, Maintenance, 01/11/22 16:18:00 EDT, Route to Pharmacy Electronically, [facility] #[id number], Partial fill upon patientrequest if the prescription is for a schedule II op... Start Date: 01/11/22 Status: Ordered diphenhydrAMINE 25 mg oral capsule 1 capsule = 25 mg, By Mouth, Once, Take one capsule on the AM of your scheduled CT scan, # 1 capsule, 0 Refills, Soft Stop, 01/27/22 12:40:00 EDT, [facility] #[id number], Partial fill upon patient request if the prescription is for a schedule II... Start Date: 01/27/22 Status: Ordered famotidine 20 mg oral tablet 20 mg, 1, tablet, By Mouth, 2 times a day, take one tablet AM prior to scheduled CT scan take one tablet PM prior to scheduled CT scan take one tablet AM on the day of your scheduled CT scan, # 3 tablet, Refills 0, Tot. Refills 0, Maintenance, 01/27... Start Date: 01/27/22 Status: Ordered ferrous sulfate 325 mg oral enteric coated tablet 650 mg, 2, tablet, By Mouth, Daily, Refills 0, Maintenance, 02/10/19 13:44:26 EDT Start Date: 02/10/19 Status: Ordered folic acid 0.8 mg oral tablet 1 tablet = 0.8 mg, By Mouth, Daily, 0 Refills, Maintenance, 02/10/19 13:45:49 EDT Start Date: 02/10/19 Status: Ordered gabapentin 600 mg oral tablet = 300 mg, By Mouth, 2 times a day, # 30 capsule, 0 Refills, Maintenance, 02/10/19 11:17:57 EDT, Tablet Start Date: 02/10/19 Status: Ordered Lipitor 80 mg oral tablet 1 tablet = 80 mg, By Mouth, Daily, # 90 tablet, 0 Refills, Maintenance, 01/11/22 16:18:00 EDT, Tablet, [facility], 175.2, cm, 01/11/22 13:55:00 EDT, Height, 100.1, kg, 01/09/2212:22:00 EDT, Dry Weight Start Date: 01/11/22 Stop Date: 02/10/22 Status: Ordered metformin 1000 mg oral tablet 1 tablet = 1,000 mg, By Mouth, 2 times a day, # 180 tablet, 0 Refills, Maintenance, Tablet Start Date: 07/30/13 Status: Ordered metoprolol succinate 100 mg oral capsule, extended release 1 capsule = 100 mg, By Mouth, Daily, # 30 capsule, 0 Refills, Maintenance, 01/11/22 16:22:00 EDT, ER Capsule, [facility] #[id number], Partial fill upon patient request if the prescription is fora schedule II opioid drug., 175.2, cm, 01/11/22 13:... Start Date: 01/11/22 Status: Ordered NovoLOG FlexTouch = 20 units, Subcutaneous Injection, 3 times a day before meals and bedtime, 0 Refills, Maintenance,02/10/19 11:14:18 EDT Start Date: 02/10/19 Status: Ordered predniSONE 50 mg oral tablet 1 tablet = 50 mg, By Mouth, 2 times a day, take one tablet AM prior to scheduled CT scan take one tablet PM prior to scheduled CT scan take one tablet AM on the day of your scheduled CT scan, # 3 tablet, 0 Refills, Maintenance, 01/27/22 12:40:00 EDT... Start Date: 01/27/22 Status: Ordered raNITIdine 150 mg oral capsule 1 capsule = 150 mg, By Mouth, Daily, 0 Refills, Maintenance, 02/10/19 13:43:45 EDT Start Date: 02/10/19 Status: Ordered tamsulosin 0.4 mg oral capsule 0.4 mg, 1, capsule, By Mouth, Daily, # 30 capsule, Refills 0, Maintenance, 02/10/19 13:41:50 EDT Start Date: 02/10/19 Status: Ordered torsemide 20 mg oral tablet 1 tablet = 20 mg, By Mouth, Daily, # 30 tablet, 0 Refills, Maintenance, 01/11/22 16:17:00 EDT, Tablet, [facility] #[id number], Partial fill upon patient request if the [...] February 2013. Urologist is Dr. Zafar Roa [facility] ).
--- OUTSIDE RECORDS SUMMARY | 2024-04-15 20:03 | XMS_ITS | Continuity of Care Document ---
Author Organization [facility] ter Address [address] [place] [address]- Care Team Providers Care Melter Supervisor Electric Arc Furnace Name Role Phone Vita ROONEY, Maninder Sanon Primary Care Physic naomi [place] [facility] [place] 02/04/23 - 04/03/[address] [address] Attending Physician: iMrella Rojas MD Admitting Physician: Mirella Rojas MD [...] 02/07/23 12:32:00 EDT, Route to Pharmacy Electronically, [facility] #[id number], Partial nikhil... Start Date: 02/07/23 Status: Ordered aspirin 81 mg oral delayed release tablet 81 mg, 1, tablet, By Mouth, Daily, Do not start aspirin until 06/16/2022, # 90 tablet, Refills 0, Tot. Refills 0, Maintenance, 02/07/23 12:28:00 EDT, Route to Pharmacy Electronically, [facility] #[id number], Partial fill upon patient request if t... [...] mmHg and/or heart rate is below 55 [id number], # 180 tablet, Refills 0, Tot. Refills 0, Maintenance, 02/07/23 12:29:00 EDT, Route to Pharmacy Electronically... Start Date: 02/07/23 Status: Ordered Farxiga 10 mg oral tablet 1 tablet = 10 mg, By Mouth, Daily, # 90 tablet, 0 Refills, Maintenance, 02/07/23 12:33:00 EDT, Tablet, [facility] #[id number], Partial fill upon patient request if the prescription is for a schedule II opioid drug., 175, cm, 02/07/23 12:05:00 EDT... Start Date: 02/07/23 Status: Ordered ferrous sulfate 325 mg oral enteric coated tablet 325 mg, 1, tablet, By Mouth, Daily, # 90 tablet, Refills 0, Tot. Refills 0, Maintenance, 02/07/23 12:36:00 EDT, Route to Pharmacy Electronically, [facility] #[id number], Partial fill upon patient request if the prescription is for a schedule II o... Start Date: 02/07/23 Status: Ordered finasteride 5 mg oral tablet 1 tablet = 5 mg, By Mouth, Daily, # 90 tablet, 0 Refills, Maintenance, 02/07/23 12:28:00 EDT, Tablet, [facility] #[id number], Partial fill upon patient request if the [...] 02/07/23 12:31:00 EDT, Route to Pharmacy Electronically, [facility] #[id number], Partial fill... Start Date: 02/07/23 Status: Ordered lidocaine 5% topical film 1 patch, Topically, Daily, Apply to back of the neck tender point, 12 hours on then 12 hours off., # 30 patch, 0 Refills, Maintenance, 02/07/23 12:30:00 EDT, Patch, [facility] #[id number], Partial fill upon patient request if the prescription is... Start Date: 02/07/23 Status: Ordered Lipitor 80 mg oral tablet 1 tablet = 80 mg, By Mouth, Daily, # 90 tablet, 0 Refills, Maintenance, 02/07/23 12:28:00 EDT, Tablet, [facility] #[id number], 175, cm, 02/07/23 12:05:00 EDT, Height, 94, kg, 01/23/23 9:15:00 EDT, Dry Weight Start Date: 02/07/23 Status: Ordered midodrine 10 mg oral tablet 1 tablet = 10 mg, By Mouth, 3 times a day, To help maintain systolic blood pressure above 110-120 mmHg, # 90 tablet, 2 Refills, Maintenance, 02/07/23 12:33:00 EDT, Tablet, [facility] #[id number], Partial fill upon patient request if the prescript... Start Date: 02/07/23 Status: Ordered Narcan 4 mg/0.1 mL nasal spray = 4 mg, Nares, Both, Once, PRN Other, To reverse opioid overdose, administer to each nostril, may repeat every 2 to 3 minutes until patient responds, call 911 in the meantime., # 2 each, 0 Refills, Soft Stop, 02/07/23 12:41:00 EDT, [facility]... Start Date: 02/07/23 Status: Ordered NovoLOG [...] 02/07/23 12:29:00 EDT, Route to Pharmacy Electronically, [facility] #[id number],Partial fill upon patient request if the prescripti... [...] 0 Refills, Maintenance, 02/07/23 12:33:00 EDT, Tablet, [facility] #[id number], Partial fill upon patient request if the [...] February 2013. Urologist is Dr. Zafar Roa [facility] ). Social History Social History Type [...] Care Nurse Name: Lorraine Araujo RN Position: [facility] AMB Nurse Member Role: Primary Care Nurse Name: Adryan Rm RN Position: [facility] RN Member Role: Primary Care Nurse Name: Peg Trinidad RN Position: [facility] RN Member Role: Primary Care Nurse Name: Fely Gaspar Position: [facility] RN Member Role: Primary Care Nurse Name: Meli Luz LPN Position: [facility] RN Member Role: Primary Care Nurse Name: Matheus Cleveland RN Position: [facility] RN Member Role: Primary Care Nurse Name: Mercedes Maki Position: [facility] RN Member Role: Primary Care Nurse Name: Les Sahu MD Position: [facility] Renal MD Member Role: Lifetime Consulting Physician Address: Address: [address] [facility] [address] [facility] [place] [address]- Name: Gabby Ma RN Position: [facility] SN RN Member Role: Primary Care Nurse Name: Huyen Griffin Position: [facility] RN Member Role: Primary Care Nurse Name: Zo Vivar RN Position: [facility] RN Member Role: Primary Care Nurse Name: Vita ROONEY, Maninder Sanon Position: Reference Physician Member Role: PCP Address: Address: [address] [place] [address]- Care Team Related Persons Name: DES WRIGHT Address: home [address] [place] [address] Name: GISELA WRIGHT Address: home [place] [place] [address]
--- OUTSIDE RECORDS SUMMARY | 2024-04-15 20:03 | XMS_ITS | Continuity of Care Document ---
Author Organization [facility] ter Address [address] [place] [address]- Care Team Providers Care Vending Mechanic Name Role Phone Vita ROONEY, Maninder Sanon Primary Care Physic naomi [place] [facility] [place] [address] Attending Physician: Mirella Rojas MD Admitting [...] 02/07/23 12:32:00 EDT, Route to Pharmacy Electronically, [facility] #[id number], Partial nikhil... Start Date: 02/07/23 Status: Ordered aspirin 81 mg oral delayed release tablet 81 mg, 1, tablet, By Mouth, Daily, Do not start aspirin until 06/16/2022, # 90 tablet, Refills 0, Tot. Refills 0, Maintenance, 02/07/23 12:28:00 EDT, Route to Pharmacy Electronically, [facility] #[id number], Partial fill upon patient request if t... [...] mmHg and/or heart rate is below 55 [id number], # 180 tablet, Refills 0, Tot. Refills 0, Maintenance, 02/07/23 12:29:00 EDT, Route to Pharmacy Electronically... Start Date: 02/07/23 Status: Ordered Farxiga 10 mg oral tablet 1 tablet = 10 mg, By Mouth, Daily, # 90 tablet, 0 Refills, Maintenance, 02/07/23 12:33:00 EDT, Tablet, [facility] #[id number], Partial fill upon patient request if the prescription is for a schedule II opioid drug., 175, cm, 02/07/23 12:05:00 EDT... Start Date: 02/07/23 Status: Ordered ferrous sulfate 325 mg oral enteric coated tablet 325 mg, 1, tablet, By Mouth, Daily, # 90 tablet, Refills 0, Tot. Refills 0, Maintenance, 02/07/23 12:36:00 EDT, Route to Pharmacy Electronically, [facility] #[id number], Partial fill upon patient request if the prescription is for a schedule II o... Start Date: 02/07/23 Status: Ordered finasteride 5 mg oral tablet 1 tablet = 5 mg, By Mouth, Daily, # 90 tablet, 0 Refills, Maintenance, 02/07/23 12:28:00 EDT, Tablet, [facility] #[id number], Partial fill upon patient request if the [...] 02/07/23 12:31:00 EDT, Route to Pharmacy Electronically, [facility] #[id number], Partial fill... Start Date: 02/07/23 Status: Ordered lidocaine 5% topical film 1 patch, Topically, Daily, Apply to back of the neck tender point, 12 hours on then 12 hours off., # 30 patch, 0 Refills, Maintenance, 02/07/23 12:30:00 EDT, Patch, [facility] #[id number], Partial fill upon patient request if the prescription is... Start Date: 02/07/23 Status: Ordered Lipitor 80 mg oral tablet 1 tablet = 80 mg, By Mouth, Daily, # 90 tablet, 0 Refills, Maintenance, 02/07/23 12:28:00 EDT, Tablet, [facility] #[id number], 175, cm, 02/07/23 12:05:00 EDT, Height, 94, kg, 01/23/23 9:15:00 EDT, Dry Weight Start Date: 02/07/23 Status: Ordered midodrine 10 mg oral tablet 1 tablet = 10 mg, By Mouth, 3 times a day, To help maintain systolic blood pressure above 110-120 mmHg, # 90 tablet, 2 Refills, Maintenance, 02/07/23 12:33:00 EDT, Tablet, [facility][id number], Partial fill upon patient request if the prescript... Start Date: 02/07/23 Status: Ordered Narcan 4 mg/0.1 mL nasal spray = 4 mg, Nares, Both, Once, PRN Other, To reverse opioid overdose, administer to each nostril, may repeat every 2 to 3 minutes until patient responds, call 911 in the meantime., # 2 each, 0 Refills, Soft Stop, 02/07/23 12:41:00 EDT, [facility] Start Date: 02/07/23 Status: Ordered NovoLOG [...] 02/07/23 12:29:00 EDT, Route to Pharmacy Electronically, [facility][id number],Partial fill upon patient request if the prescripti... [...] 0 Refills, Maintenance, 02/07/23 12:33:00 EDT, Tablet, [facility] #[id number], Partial fill upon patient request if the [...] February 2013. Urologist is Dr. Zafar Roa [facility] ). Social History Social History Type [...] Care Nurse Name: Lorraine Araujo RN Position: [facility] AMB Nurse Member Role: Primary Care Nurse Name: Adryan Rm RN Position: [facility] RN Member Role: Primary Care Nurse Name: Peg Trinidad RN Position: [facility] RN Member Role: Primary Care Nurse Name: Fely Gaspar Position: [facility] RN Member Role: Primary Care Nurse Name: Meli Luz LPN Position: [facility] RN Member Role: Primary Care Nurse Name: Matheus Cleveland RN Position: [facility] RN Member Role: Primary Care Nurse Name: Mercedes Maki Position: [facility] RN Member Role: Primary Care Nurse Name: Les Sahu MD Position: [facility] Renal MD Member Role: Lifetime Consulting Physician Address: Address: [address] [facility] [address] [facility] [place] [place] [address]- Name: Gabby Ma RN Position: [facility] SN RN Member Role: Primary Care Nurse Name: Huyen Griffin Position: [facility] RN Member Role: Primary Care Nurse Name: Zo Vivar RN Position: [facility] RN Member Role: Primary Care Nurse Name: Vita ROONEY, Maninder Sanon Position: Reference Physician Member Role: PCP Address: Address: [address] [place] [address]- Care Team Related Persons Name: DES WRIGHT Address: home [address] [place] [address] Name: GISELA WRIGHT Address: home [place] [address]
--- OUTSIDE RECORDS SUMMARY | 2024-04-15 20:04 | XMS_ITS | Continuity of Care Document ---
Author Organization [facility] ter Address [address] [place] [address]- Care Team Providers Care Java Sql Developer Name Role Phone Vita ROONEY, Maninder Sanon Primary Care Physic naomi Encounter [facility] [place] Date(s): 02/04/23 - 03/20/[address] [address] Attending Physician: Mirella Rojas MD [...] 02/07/23 12:32:00 EDT, Route to Pharmacy Electronically, [facility] #[id number], Partial nikhil... Start Date: 02/07/23 Status: Ordered aspirin 81 mg oral delayed release tablet 81 mg, 1, tablet, By Mouth, Daily, Do not start aspirin until 06/16/2022, # 90 tablet, Refills 0, Tot. Refills 0, Maintenance, 02/07/23 12:28:00 EDT, Route to Pharmacy Electronically, [facility] #[id number], Partial fill upon patient request if t... [...] mmHg and/or heart rate is below 55 [id number], # 180 tablet, Refills 0, Tot. Refills 0, Maintenance, 02/07/23 12:29:00 EDT, Route to Pharmacy Electronically... Start Date: 02/07/23 Status: Ordered Farxiga 10 mg oral tablet 1 tablet = 10 mg, By Mouth, Daily, # 90 tablet, 0 Refills, Maintenance, 02/07/23 12:33:00 EDT, Tablet, [facility] #[id number], Partial fill upon patient request if the prescription is for a schedule II opioid drug., 175, cm, 02/07/23 12:05:00 EDT... Start Date: 02/07/23 Status: Ordered ferrous sulfate 325 mg oral enteric coated tablet 325 mg, 1, tablet, By Mouth, Daily, # 90 tablet, Refills 0, Tot. Refills 0, Maintenance, 02/07/23 12:36:00 EDT, Route to Pharmacy Electronically, [facility] #[id number], Partial fill upon patient request if the prescription is for a schedule II o... Start Date: 02/07/23 Status: Ordered finasteride 5 mg oral tablet 1 tablet = 5 mg, By Mouth, Daily, # 90 tablet, 0 Refills, Maintenance, 02/07/23 12:28:00 EDT, Tablet, [facility] #[id number], Partial fill upon patient request if the [...] 02/07/23 12:31:00 EDT, Route to Pharmacy Electronically, [facility] #[id number], Partial fill... Start Date: 02/07/23 Status: Ordered lidocaine 5% topical film 1 patch, Topically, Daily, Apply to back of the neck tender point, 12 hours on then 12 hours off., # 30 patch, 0 Refills, Maintenance, 02/07/23 12:30:00 EDT, Patch, [facility] #[id number], Partial fill upon patient request if the prescription is... Start Date: 02/07/23 Status: Ordered Lipitor 80 mg oral tablet 1 tablet = 80 mg, By Mouth, Daily, # 90 tablet, 0 Refills, Maintenance, 02/07/23 12:28:00 EDT, Tablet, [facility] #[id number], 175, cm, 02/07/23 12:05:00 EDT, Height, 94, kg, 01/23/23 9:15:00 EDT, Dry Weight Start Date: 02/07/23 Status: Ordered midodrine 10 mg oral tablet 1 tablet = 10 mg, By Mouth, 3 times a day, To help maintain systolic blood pressure above 110-120 mmHg, # 90 tablet, 2 Refills, Maintenance, 02/07/23 12:33:00 EDT, Tablet, [facility] #[id number], Partial fill upon patient request if the prescript... Start Date: 02/07/23 Status: Ordered Narcan 4 mg/0.1 mL nasal spray = 4 mg, Nares, Both, Once, PRN Other, To reverse opioid overdose, administer to each nostril, may repeat every 2 to 3 minutes until patient responds, call 911 in the meantime., # 2 each, 0 Refills, Soft Stop, 02/07/23 12:41:00 EDT, [facility]... Start Date: 02/07/23 Status: Ordered NovoLOG [...] 02/07/23 12:29:00 EDT, Route to Pharmacy Electronically, [facility] #[id number],Partial fill upon patient request if the prescripti... [...] 0 Refills, Maintenance, 02/07/23 12:33:00 EDT, Tablet, [facility] #[id number], Partial fill upon patient request if the [...] February 2013. Urologist is Dr. Zafar Roa [facility] ). Social History Social History Type [...] Care Nurse Name: Lorraine Araujo RN Position: [facility] AMB Nurse Member Role: Primary Care Nurse Name: Adryan Rm RN Position: [facility] RN Member Role: Primary Care Nurse Name: Peg Trinidad RN Position: [facility] RN Member Role: Primary Care Nurse Name: Fely Gaspar Position: [facility] RN Member Role: Primary Care Nurse Name: Meli Luz LPN Position: [facility] RN Member Role: Primary Care Nurse Name: Matheus Cleveland RN Position: [facility] RN Member Role: Primary Care Nurse Name: Mercedes Maki Position: [facility] RN Member Role: Primary Care Nurse Name: Les Sahu MD Position: [facility] Renal MD Member Role: Lifetime Consulting Physician Address: Address: [address] [facility], [place] [address]- Name: Gabby Ma RN Position: [facility] SN RN Member Role: Primary Care Nurse Name: Huyen Griffin Position: [facility] RN Member Role: Primary Care Nurse Name: Zo Vivar RN Position: [facility] RN Member Role: Primary Care Nurse Name: Vita ROONEY, Maninder Sanon Position: Reference Physician Member Role: PCP Address: Address: [address] [place] [address]- Care Team Related Persons Name: DES WRIGHT Address: home [address] [place] [address] Name: GISELA WRIGHT Address: [place] [address]
--- OUTSIDE RECORDS SUMMARY | 2024-04-15 20:04 | XMS_ITS | Continuity of Care Document ---
Author Organization [facility] ter Address [address] [place] [address]- Care Team Providers Care Packaging Manager Name Role Phone Vita ROONEY, Maninder Sanon Primary Care Physic naomi [place] [facility] [place]/04[place]23 - 03/15/[address] [address] Attending Physician: Mirella Rojas MD Admitting Physician: [...] 02/07/23 12:32:00 EDT, Route to Pharmacy Electronically, [facility] #[id number], Partial nikhil... Start Date: 02/07/23 Status: Ordered aspirin 81 mg oral delayed release tablet 81 mg, 1, tablet, By Mouth, Daily, Do not start aspirin until 06/16/2022, # 90 tablet, Refills 0, Tot. Refills 0, Maintenance, 02/07/23 12:28:00 EDT, Route to Pharmacy Electronically, [facility] #[id number], Partial fill upon patient request if t... [...] mmHg and/or heart rate is below 55 [id number], # 180 tablet, Refills 0, Tot. Refills 0, Maintenance, 02/07/23 12:29:00 EDT, Route to Pharmacy Electronically... Start Date: 02/07/23 Status: Ordered Farxiga 10 mg oral tablet 1 tablet = 10 mg, By Mouth, Daily, # 90 tablet, 0 Refills, Maintenance, 02/07/23 12:33:00 EDT, Tablet, [facility] #[id number], Partial fill upon patient request if the prescription is for a schedule II opioid drug., 175, cm, 02/07/23 12:05:00 EDT... Start Date: 02/07/23 Status: Ordered ferrous sulfate 325 mg oral enteric coated tablet 325 mg, 1, tablet, By Mouth, Daily, # 90 tablet, Refills 0, Tot. Refills 0, Maintenance, 02/07/23 12:36:00 EDT, Route to Pharmacy Electronically, [facility] #[id number], Partial fill upon patient request if the prescription is for a schedule II o... Start Date: 02/07/23 Status: Ordered finasteride 5 mg oral tablet 1 tablet = 5 mg, By Mouth, Daily, # 90 tablet, 0 Refills, Maintenance, 02/07/23 12:28:00 EDT, Tablet, [facility] #[id number], Partial fill upon patient request if the [...] 02/07/23 12:31:00 EDT, Route to Pharmacy Electronically, [facility] #[id number], Partial fill... Start Date: 02/07/23 Status: Ordered lidocaine 5% topical film 1 patch, Topically, Daily, Apply to back of the neck tender point, 12 hours on then 12 hours off., # 30 patch, 0 Refills, Maintenance, 02/07/23 12:30:00 EDT, Patch, [facility] #[id number], Partial fill upon patient request if the prescription is... Start Date: 02/07/23 Status: Ordered Lipitor 80 mg oral tablet 1 tablet = 80 mg, By Mouth, Daily, # 90 tablet, 0 Refills, Maintenance, 02/07/23 12:28:00 EDT, Tablet, [facility] #[id number], 175, cm, 02/07/23 12:05:00 EDT, Height, 94, kg, 01/23/23 9:15:00 EDT, Dry Weight Start Date: 02/07/23 Status: Ordered midodrine 10 mg oral tablet 1 tablet = 10 mg, By Mouth, 3 times a day, To help maintain systolic blood pressure above 110-120 mmHg, # 90 tablet, 2 Refills, Maintenance, 02/07/23 12:33:00 EDT, Tablet, [facility] #[id number], Partial fill upon patient request if the prescript... Start Date: 02/07/23 Status: Ordered Narcan 4 mg/0.1 mL nasal spray = 4 mg, Nares, Both, Once, PRN Other, To reverse opioid overdose, administer to each nostril, may repeat every 2 to 3 minutes until patient responds, call 911 in the meantime., # 2 each, 0 Refills, Soft Stop, 02/07/23 12:41:00 EDT, [facility]... Start Date: 02/07/23 Status: Ordered NovoLOG [...] 02/07/23 12:29:00 EDT, Route to Pharmacy Electronically, [facility] #[id number],Partial fill upon patient request if the prescripti... [...] 0 Refills, Maintenance, 02/07/23 12:33:00 EDT, Tablet, [facility] #[id number], Partial fill upon patient request if the [...] February 2013. Urologist is Dr. Zafar Roa [facility] ). Social History Social History Type [...] Name: Lorraine Araujo RN Position: [facility] AMB Nurse Member Role: Primary Care Nurse Name: Adryan Rm RN Position: [facility] RN Member Role: Primary Care Nurse Name: Peg Trinidad RN Position: [facility] RN Member Role: Primary Care Nurse Name: Fely Gaspar Position: [facility] RN Member Role: Primary Care Nurse Name: Meli Luz LPN Position: [facility] RN Member Role: Primary Care Nurse Name: Matheus Cleveland RN Position: [facility] RN Member Role: Primary Care Nurse Name: Mercedes Maki Position: [facility] RN Member Role: Primary Care Nurse Name: Les Sahu MD Position: [facility] Renal MD Member Role: Lifetime Consulting Physician Address: Address: [address] [facility] [place], [place] [address]- Name: Gabby Ma RN Position: [facility] SN RN Member Role: Primary Care Nurse Name: Huyen Griffin Position: [facility] RN Member Role: Primary Care Nurse Name: Zo Vivar RN Position: [facility] RN Member Role: Primary Care Nurse Name: Vita ROONEY, Maninder Sanon Position: Reference Physician Member Role: PCP Address: Address: [address] [place] [address]- Care Team Related Persons Name: DES WRIGHT Address: home [address] [place] [address] Name: GISELA WRIGHT Address: [place] [address]
--- OUTSIDE RECORDS SUMMARY | 2024-04-15 20:04 | XMS_ITS | Continuity of Care Document ---
Author Organization [facility] Address [address] [place] [address]- Care Team Providers Care Government Service Executive Name Role Phone Vita ROONEY, Maninder Sanon Primary Care Physic naomi Encounter [facility] [place] Date(s): 09/11/23 - 10/24/23 [facility] [address] [place] [address]- Attending Physician: Cole Saleem MD Admitting Physician: [...] 05/17/24 13:41:00 EDT, 08/21/23 13:41:00 EST, Capsule, [facility] #[id number], Partial fill upon patient request if the prescript... Start Date: 08/21/23 Stop Date: 05/17/24 Status: Ordered amoxicillin 500 mg oral capsule 2 capsule = 1,000 mg, By Mouth, 3 times a day, # 240 capsule, 0 Refills, Maintenance, 07/28/23 10:17:00 EST, [facility] #[id number], Partial fill upon patient request if the prescription is for a schedule II opioid drug., 175.26, cm, 07/24/23 9:5... Start Date: 07/28/23 Stop Date: 09/06/23 Status: Ordered aspirin 81 mg oral delayed release tablet 81 mg, 1, tablet, By Mouth, Daily, Do not start aspirin until 06/16/2022, # 90 tablet, Refills 0, Tot. Refills 0, Maintenance, 02/07/23 12:28:00 EDT, Route to Pharmacy Electronically, [facility] #[id number], Partial fill upon patient request if t... [...] 08/17/23 7:00:00 EST, Route to Pharmacy Electronically, [facility] #[id number], Partial fill upon patient request if the [...] mmHg and/or heart rate is below 55 [id number], # 180 tablet, Refills 0, Tot. Refills 0, Maintenance, 02/07/23 12:29:00 EDT, Route to Pharmacy Electronically... Start Date: 02/07/23 Status: Ordered diclofenac 1% topical gel = 4 Gm, Topically, 4 times a day, PRN Pain , Moderate, # 100 Gm, 0 Refills, Maintenance, 08/15/23 11:37:00 EST, Gel, [facility] #[id number], Partial fill upon patient request if the prescriptionis for a schedule II opioid drug., 175, cm, ... Start Date: 08/15/23 Status: Ordered Farxiga 10 mg oral tablet 1 tablet = 10 mg, By Mouth, Daily, # 90 tablet, 0 Refills, Maintenance, 02/07/23 12:33:00 EDT, Tablet, [facility] #[id number], Partial fill upon patient request if the prescription is for a schedule II opioid drug., 175, cm, 02/07/23 12:05:00 EDT... Start Date: 02/07/23 Status: Ordered ferrous sulfate 325 mg oral enteric coated tablet 325 mg, 1, tablet, By Mouth, Daily, # 90 tablet, Refills 0, Tot. Refills 0, Maintenance, 02/07/23 12:36:00 EDT, Route to Pharmacy Electronically, [facility] #[id number], Partial fill upon patient request if the prescription is for a schedule II o... Start Date: 02/07/23 Status: Ordered finasteride 5 mg oral tablet 1 tablet = 5 mg, By Mouth, Daily, # 90 tablet, 0 Refills, Maintenance, 02/07/23 12:28:00 EDT, Tablet, [facility] #[id number], Partial fill upon patient request if the [...] 07/22/23 9:56:00 EST, Route to Pharmacy Electronically, [facility] #[id number], Partial fill upon patient request if the prescription is for a sche... Start Date: 07/22/23 Status: Ordered lactulose 10 gm/15 ml oral syrup See Instructions, PRN Other, Take 15 mL as needed for constipation, please maintain daily bowel movement, hold for excessive loose stool or diarrhea (more than 3 times a day)., # 480 mL, 0 Refills, Maintenance, 02/07/23 12:36:00 EDT, Syrup, [facility]... Start Date: 02/07/23 Status: Ordered Lipitor 80 mg oral tablet 1 tablet = 80 mg, By Mouth, Daily, # 90 tablet, 0 Refills, Maintenance, 02/07/23 12:28:00 EDT, Tablet, [facility] #[id number], 175, cm, 02/07/23 12:05:00 EDT, Height, 94, kg, 01/23/23 9:15:00 EDT, Dry Weight Start Date: 02/07/23 Status: Ordered midodrine 10 mg oral tablet 1 tablet = 10 mg, By Mouth, 3 times a day, To help maintain systolic blood pressure above 110-120 mmHg, # 90 tablet, 2 Refills, Maintenance, 02/07/23 12:33:00 EDT, Tablet, [facility] #[id number], Partial fill upon patient request if the [...] 02/07/23 12:29:00 EDT, Route to Pharmacy Electronically, [facility] #[id number],Partial fill upon patient request if the prescripti... [...] 0 Refills, Maintenance, 02/07/23 12:33:00 EDT, Tablet, [facility] #[id number], Partial fill upon patient request if the [...] February 2013. Urologist is Dr. Zafar Roa [facility] ( [phone]). Social History Social History Type Response Smoking Status Never (less than 100 in lifetime) entered on: 06/02/22 Sex Patient Care team information Care Team Personnel Name: Steff Puentes RN Position: [facility] RN Member Role: Primary Care Nurse Name: Kalyani Miller LPN Position: [facility] RN Member Role: Primary Care Nurse Name: Nadiya Coleman RN Position: [facility] RN Member [...] Lorraine Araujo RN Position: [facility] AMB Nurse Member Role: Primary Care Nurse Name: Adryan Rm RN Position: [facility] RN Member Role: Primary Care Nurse Name: Fely Gaspar Position: [facility] RN Member Role: Primary Care Nurse Name: Tonya Up RN Position: [facility] RN Member Role: Primary Care Nurse Name: Meli Luz LPN Position: [facility] RN Member Role: Primary Care Nurse Name: Matheus Cleveland RN Position: [facility] RN Member Role: Primary Care Nurse Name: Karolina Barcenas RN Position: [facility] RN Member Role: Primary Care Nurse Name: Mercedes Maki Position: [facility] RN Member Role: Primary Care Nurse Name: Edna Horner RN Position: [facility] RN Member Role: Primary Care Nurse Name: Aguila Acevedo LPN Position: S RN Member Role: Primary Care Nurse Name: Les Sahu MD Position: [facility] Renal MD Member Role: Lifetime Consulting Physician Address: Address: [address] [place] [address] [address] [facility] [place] [address]- Name: Gabby Ma RN Position: [facility] SN RN Member Role: Primary Care Nurse Name: Nadia Lainez RN Position: S RN Member Role: Primary Care Nurse Name: Yohannes Watson RN Position: S RN Member Role: Primary Care Nurse Name: Omer Moreno MD Position: [facility] Renal MD Member Role: Lifetime Consulting Physician Address: Address: [address] [place] [address] [facility] [place] [address]- Name: Staci Salgado LPN Position: S RN Member Role: Primary Care Nurse Name: Zo Vivar RN Position: S RN Member Role: Primary Care Nurse Name: Anh Batista RN Position: [facility] RN Member Role: Primary Care Nurse Name: Maninder Gorman MD Position: Reference Physician Member Role: PCP Address: Address: [address] [place] [address]- Care Team Related Persons Name: DES WRIGHT Address: home [address] [place] [address] Name: GISELA WRIGHT Address: [place] [address] Name: SURI FLOYD Address: home [address] [place] [address]
--- OUTSIDE RECORDS SUMMARY | 2024-04-15 20:04 | XMS_ITS | Continuity of Care Document ---
Author Organization [facility] yuri Address [address] [place], [place] [address]alejandra [place] [address]- Care Team Providers Care Receiving Lead Name Role Phone Vita ROONEY, Maninder Sanon Primary Care Physic naomi [place] [facility] [place]s): 02/12/22 - 02/19/22 [facility] [address] [place] [address] [id number] Attending Physician: Katey ROONEY, Fabricio Alvarado Referring Physician: Gideon ROONEY, Eveline Allergies, Adverse Reactions, Alerts Substance Reaction Severity Status lisinopril 1 throat swelling Active Contrast Dye Unknown Unknown Active Latex Rash Active 1throat swelling Medications aspirin 81 mg oral delayed release tablet 81 mg, By Mouth, Daily, # 30 tablet, Refills 2, Tot. Refills 2, Maintenance, 01/11/22 16:18:00 EDT,Route to Pharmacy Electronically, [facility] #[id number], Partial fill upon patient request ifthe prescription is for a schedule II opioid drug.,... Start Date: 01/11/22 Stop Date: 04/11/22 Status: Ordered clopidogrel 75 mg oral tablet 75 mg, 1, tablet, By Mouth, Daily, # 30 tablet, Refills 0, Tot. Refills 0, Maintenance, 01/11/22 16:18:00 EDT, Route to Pharmacy Electronically, [facility] #[id number], Partial fill upon patientrequest if the prescription is for a schedule II op... Start Date: 01/11/22 Status: Ordered diphenhydrAMINE 25 mg oral capsule 1 capsule = 25 mg, By Mouth, Once, Take one capsule on the AM of your scheduled CT scan, # 1 capsule, 0 Refills, Soft Stop, 01/27/22 12:40:00 EDT, [facility] #[id number], Partial fill upon patient request if the [...] 0 Refills, Maintenance, 01/11/22 16:18:00 EDT, Tablet, [facility], 175.2, cm, 01/11/22 13:55:00 [...] Refills, Maintenance, 01/11/22 16:22:00 EDT, ER Capsule, [facility] #[id number], Partial fill upon patient request if the [...] 0 Refills, Maintenance, 01/11/22 16:17:00 EDT, Tablet, [facility] #[id number], Partial fill upon patient request if the [...] February 2013. Urologist is Dr. Zafar Roa [facility] ). Vital Signs Most recent to oldest [Reference Range]: 1 Height 175.2 cm (02/12/22 3:20 PM) Weight 96.4 kg (02/12/22 3:20 PM) Oxygen Saturation [94-100 %] 95 % (02/12/22 3:20 PM) Pulse Rate [55-90 bpm] 70 bpm (02/12/22 3:20 PM) Body Mass Index [18.5-24.99] 31.41 *>HHI* (02/12/22 3:20 PM) Blood Pressure [90-138/55-84 mm Hg] 124/ 82mm Hg (02/12/22 3:20 PM) Respiratory Rate [16-30 br/min] 18 br/mi n (02/12/22 3:20 PM) Mode of Delivery (Oxygen) Room air (02/12/22 3:20 PM) Blood pressure sites Arm, right (02/12/22 3:20 PM) Weight Obtained Via Patient/family state d (02/12/22 3:20 PM)
--- OUTSIDE RECORDS SUMMARY | 2024-04-15 20:04 | XMS_ITS | Continuity of Care Document ---
Author Organization [facility] ter Address [address] [place] [address]- Care Team Providers Care Measurement And Sensing Technician Name Role Phone Vita ROONEY, Maninder Sanon Primary Care Physic naomi [place] [facility] [place]s): 02/04/23 - 04/06/[address] [address] Attending Physician: Mirella Rojas MD Admitting [...] 02/07/23 12:32:00 EDT, Route to Pharmacy Electronically, [facility] #[id number], Partial nikhil... Start Date: 02/07/23 Status: Ordered aspirin 81 mg oral delayed release tablet 81 mg, 1, tablet, By Mouth, Daily, Do not start aspirin until 06/16/2022, # 90 tablet, Refills 0, Tot. Refills 0, Maintenance, 02/07/23 12:28:00 EDT, Route to Pharmacy Electronically, [facility] #[id number], Partial fill upon patient request if t... [...] mmHg and/or heart rate is below 55 [id number], # 180 tablet, Refills 0, Tot. Refills 0, Maintenance, 02/07/23 12:29:00 EDT, Route to Pharmacy Electronically... Start Date: 02/07/23 Status: Ordered Farxiga 10 mg oral tablet 1 tablet = 10 mg, By Mouth, Daily, # 90 tablet, 0 Refills, Maintenance, 02/07/23 12:33:00 EDT, Tablet, [facility] #[id number], Partial fill upon patient request if the prescription is for a schedule II opioid drug., 175, cm, 02/07/23 12:05:00 EDT... Start Date: 02/07/23 Status: Ordered ferrous sulfate 325 mg oral enteric coated tablet 325 mg, 1, tablet, By Mouth, Daily, # 90 tablet, Refills 0, Tot. Refills 0, Maintenance, 02/07/23 12:36:00 EDT, Route to Pharmacy Electronically, [facility] #[id number], Partial fill upon patient request if the prescription is for a schedule II o... Start Date: 02/07/23 Status: Ordered finasteride 5 mg oral tablet 1 tablet = 5 mg, By Mouth, Daily, # 90 tablet, 0 Refills, Maintenance, 02/07/23 12:28:00 EDT, Tablet, [facility] #[id number], Partial fill upon patient request if the [...] 02/07/23 12:31:00 EDT, Route to Pharmacy Electronically, [facility] #[id number], Partial fill... Start Date: 02/07/23 Status: Ordered lidocaine 5% topical film 1 patch, Topically, Daily, Apply to back of the neck tender point, 12 hours on then 12 hours off., # 30 patch, 0 Refills, Maintenance, 02/07/23 12:30:00 EDT, Patch, [facility] #[id number], Partial fill upon patient request if the prescription is... Start Date: 02/07/23 Status: Ordered Lipitor 80 mg oral tablet 1 tablet = 80 mg, By Mouth, Daily, # 90 tablet, 0 Refills, Maintenance, 02/07/23 12:28:00 EDT, Tablet, [facility] #[id number], 175, cm, 02/07/23 12:05:00 EDT, Height, 94, kg, 01/23/23 9:15:00 EDT, Dry Weight Start Date: 02/07/23 Status: Ordered midodrine 10 mg oral tablet 1 tablet = 10 mg, By Mouth, 3 times a day, To help maintain systolic blood pressure above 110-120 mmHg, # 90 tablet, 2 Refills, Maintenance, 02/07/23 12:33:00 EDT, Tablet, [facility] #[id number], Partial fill upon patient request if the prescript... Start Date: 02/07/23 Status: Ordered Narcan 4 mg/0.1 mL nasal spray = 4 mg, Nares, Both, Once, PRN Other, To reverse opioid overdose, administer to each nostril, may repeat every 2 to 3 minutes until patient responds, call 911 in the meantime., # 2 each, 0 Refills, Soft Stop, 02/07/23 12:41:00 EDT, [facility]... Start Date: 02/07/23 Status: Ordered NovoLOG [...] 02/07/23 12:29:00 EDT, Route to Pharmacy Electronically, [facility] #[id number],Partial fill upon patient request if the prescripti... [...] 0 Refills, Maintenance, 02/07/23 12:33:00 EDT, Tablet, [facility] #[id number], Partial fill upon patient request if the [...] February 2013. Urologist is Dr. Zafar Roa [facility] ). Social History Social History Type [...] Care Nurse Name: Lorraine Araujo RN Position: [facility] AMB Nurse Member Role: Primary Care Nurse Name: Adryan Rm RN Position: [facility] RN Member Role: Primary Care Nurse Name: Peg Trinidad RN Position: [facility] RN Member Role: Primary Care Nurse Name: Fely Gaspar Position: [facility] RN Member Role: Primary Care Nurse Name: Meli Luz LPN Position: [facility] RN Member Role: Primary Care Nurse Name: Matheus Cleveland RN Position: [facility] RN Member Role: Primary Care Nurse Name: Mercedes Maki Position: [facility] RN Member Role: Primary Care Nurse Name: Les Sahu MD Position: [facility] Renal MD Member Role: Lifetime Consulting Physician Address: Address: [address] [facility] [address] [facility] [address] [facility] [place], [place] [address]- Name: Gabby Ma RN Position: [facility] SN RN Member Role: Primary Care Nurse Name: Huyen Griffin Position: [facility] RN Member Role: Primary Care Nurse Name: Zo Vivar RN Position: [facility] RN Member Role: Primary Care Nurse Name: Vita ROONEY, Maninder Sanon Position: Reference Physician Member Role: PCP Address: Address: [address] [place] [address]- Care Team Related Persons Name: DES WRIGHT Address: home [address] [place] [address] Name: GISELA WRIGHT Address: [place] [address]
--- OUTSIDE RECORDS SUMMARY | 2024-04-15 20:04 | XMS_ITS | Continuity of Care Document ---
Author Organization [facility] ter Address [address] [place] [address]- Care Team Providers Care Sociology Adjunct Instructor Name Role Phone Vita ROONEY, Maninder Sanon Primary Care Physic naomi Encounter [facility] [place] Date(s): 02/04/23 - 03/17/[address] [address] Attending Physician: Mirella Rojas MD Admitting Physician: [...] 02/07/23 12:32:00 EDT, Route to Pharmacy Electronically, [facility] #[id number], Partial nikhil... Start Date: 02/07/23 Status: Ordered aspirin 81 mg oral delayed release tablet 81 mg, 1, tablet, By Mouth, Daily, Do not start aspirin until 06/16/2022, # 90 tablet, Refills 0, Tot. Refills 0, Maintenance, 02/07/23 12:28:00 EDT, Route to Pharmacy Electronically, [facility] #[id number], Partial fill upon patient request if t... [...] mmHg and/or heart rate is below 55 [id number], # 180 tablet, Refills 0, Tot. Refills 0, Maintenance, 02/07/23 12:29:00 EDT, Route to Pharmacy Electronically... Start Date: 02/07/23 Status: Ordered Farxiga 10 mg oral tablet 1 tablet = 10 mg, By Mouth, Daily, # 90 tablet, 0 Refills, Maintenance, 02/07/23 12:33:00 EDT, Tablet, [facility] #[id number], Partial fill upon patient request if the prescription is for a schedule II opioid drug., 175, cm, 02/07/23 12:05:00 EDT... Start Date: 02/07/23 Status: Ordered ferrous sulfate 325 mg oral enteric coated tablet 325 mg, 1, tablet, By Mouth, Daily, # 90 tablet, Refills 0, Tot. Refills 0, Maintenance, 02/07/23 12:36:00 EDT, Route to Pharmacy Electronically, [facility] #[id number], Partial fill upon patient request if the prescription is for a schedule II o... Start Date: 02/07/23 Status: Ordered finasteride 5 mg oral tablet 1 tablet = 5 mg, By Mouth, Daily, # 90 tablet, 0 Refills, Maintenance, 02/07/23 12:28:00 EDT, Tablet, [facility] #[id number], Partial fill upon patient request if the [...] 02/07/23 12:31:00 EDT, Route to Pharmacy Electronically, [facility] #[id number], Partial fill... Start Date: 02/07/23 Status: Ordered lidocaine 5% topical film 1 patch, Topically, Daily, Apply to back of the neck tender point, 12 hours on then 12 hours off., # 30 patch, 0 Refills, Maintenance, 02/07/23 12:30:00 EDT, Patch, [facility] #[id number], Partial fill upon patient request if the prescription is... Start Date: 02/07/23 Status: Ordered Lipitor 80 mg oral tablet 1 tablet = 80 mg, By Mouth, Daily, # 90 tablet, 0 Refills, Maintenance, 02/07/23 12:28:00 EDT, Tablet, [facility] #[id number], 175, cm, 02/07/23 12:05:00 EDT, Height, 94, kg, 01/23/23 9:15:00 EDT, Dry Weight Start Date: 02/07/23 Status: Ordered midodrine 10 mg oral tablet 1 tablet = 10 mg, By Mouth, 3 times a day, To help maintain systolic blood pressure above 110-120 mmHg, # 90 tablet, 2 Refills, Maintenance, 02/07/23 12:33:00 EDT, Tablet, [facility] #[id number], Partial fill upon patient request if the prescript... Start Date: 02/07/23 Status: Ordered Narcan 4 mg/0.1 mL nasal spray = 4 mg, Nares, Both, Once, PRN Other, To reverse opioid overdose, administer to each nostril, may repeat every 2 to 3 minutes until patient responds, call 911 in the meantime., # 2 each, 0 Refills, Soft Stop, 02/07/23 12:41:00 EDT, [facility] ST... Start Date: 02/07/23 Status: Ordered NovoLOG [...] 02/07/23 12:29:00 EDT, Route to Pharmacy Electronically, [facility] #[id number],Partial fill upon patient request if the prescripti... [...] 0 Refills, Maintenance, 02/07/23 12:33:00 EDT, Tablet, [facility] #[id number], Partial fill upon patient request if the [...] February 2013. Urologist is Dr. Zafar Roa [facility] ). Social History Social History Type [...] Care Nurse Name: Lorraine Araujo RN Position: [facility] AMB Nurse Member Role: Primary Care Nurse Name: Adryan Rm RN Position: [facility] RN Member Role: Primary Care Nurse Name: Peg Trinidad RN Position: [facility] RN Member Role: Primary Care Nurse Name: Fely Gaspar Position: [facility] RN Member Role: Primary Care Nurse Name: Meli Luz LPN Position: [facility] RN Member Role: Primary Care Nurse Name: Matheus Cleveland RN Position: [facility] RN Member Role: Primary Care Nurse Name: Mercedes Maki Position: [facility] RN Member Role: Primary Care Nurse Name: Les Sahu MD Position: [facility] Renal MD Member Role: Lifetime Consulting Physician Address: Address: [address] [facility] [address] [facility] [place] [address]- Name: Gabby Ma RN Position: [facility] SN RN Member Role: Primary Care Nurse Name: Huyen Griffin Position: [facility] RN Member Role: Primary Care Nurse Name: Zo Vivar RN Position: [facility] RN Member Role: Primary Care Nurse Name: Vita ROONEY, Maninder Sanon Position: Reference Physician Member Role: PCP Address: Address: [address] [place] [address]- Care Team Related Persons Name: DES WRIGHT Address: home [address] [place] [address] Name: GISELA WRIGHT Address: home [place] [address]
--- OUTSIDE RECORDS SUMMARY | 2024-04-15 20:04 | XMS_ITS | Continuity of Care Document ---
Author Organization [facility] Raquel yuri Address [address] [place], [place] [address]ale[place]andra [place] [address]- Care Team Providers Care Vice President Compliance Name Role Phone Vita ROONEY, Maninder Sanon Primary Care Physic naomi Encounter [facility] [place] Date(s): 02/12/22 - 03/14/22 [facility] [address] [place] [address]- Attending Physician: Laina Carlos Admitting Physician: AdmtrLaina Referring Physician: Admtr, Ar8 Allergies, Adverse Reactions, Alerts Substance Reaction Severity Status lisinopril 1 throat swelling Active Contrast Dye Unknown Unknown Active Latex Rash Active 1throat swelling Medications aspirin 81 mg oral delayed release tablet 81 mg, By Mouth, Daily, # 30 tablet, Refills 2, Tot. Refills 2, Maintenance, 01/11/22 16:18:00 EDT,Route to Pharmacy Electronically, [facility] #[id number], Partial fill upon patient request ifthe prescription is for a schedule II opioid drug.,... Start Date: 01/11/22 Stop Date: 04/11/22 Status: Ordered clopidogrel 75 mg oral tablet 75 mg, 1, tablet, By Mouth, Daily, # 30 tablet, Refills 0, Tot. Refills 0, Maintenance, 01/11/22 16:18:00 EDT, Route to Pharmacy Electronically, [facility] #[id number], Partial fill upon patientrequest if the prescription is for a schedule II op... Start Date: 01/11/22 Status: Ordered diphenhydrAMINE 25 mg oral capsule 1 capsule = 25 mg, By Mouth, Once, Take one capsule on the AM of your scheduled CT scan, # 1 capsule, 0 Refills, Soft Stop, 01/27/22 12:40:00 EDT, [facility] #[id number], Partial fill upon patient request if the [...] 0 Refills, Maintenance, 01/11/22 16:18:00 EDT, Tablet, [facility], 175.2, cm, 01/11/22 13:55:00 [...] Refills, Maintenance, 01/11/22 16:22:00 EDT, ER Capsule, [facility] #[id number], Partial fill upon patient request if the [...] 0 Refills, Maintenance, 01/11/22 16:17:00 EDT, Tablet, [facility] #[id number], Partial fill upon patient request if the [...] February 2013. Urologist is Dr. Zafar Roa [facility] ( [phone]).
--- OUTSIDE RECORDS SUMMARY | 2024-04-15 20:04 | XMS_ITS | Continuity of Care Document ---
Author Organization [facility] ter Address [address] [place] [address]- Care Team Providers Care Process Tech Name Role Phone Vita ROONEY, Maninder Sanon Primary Care Physic naomi [place] [facility] [place](s): 02/04/23 - 03/13/[address] [address] Attending Physician: Mirella Rojas MD Admitting Physician: Mirella Rojas MD Referring Physician: Mirella Rojas MD Allergies, Adverse Reactions, Alerts Substance Reaction Severity Status lisinopril 1 throat swelling Active pregabalin hallucination Active TiZANidine Hydrochloride hallucination Ac tive Contrast [...] 02/07/23 12:32:00 EDT, Route to Pharmacy Electronically, [facility] #[id number], Partial nikhil... Start Date: 02/07/23 Status: Ordered aspirin 81 mg oral delayed release tablet 81 mg, 1, tablet, By Mouth, Daily, Do not start aspirin until 06/16/2022, # 90 tablet, Refills 0, Tot. Refills 0, Maintenance, 02/07/23 12:28:00 EDT, Route to Pharmacy Electronically, [facility] #[id number], Partial fill upon patient request if t... [...] mmHg and/or heart rate is below 55 [id number], # 180 tablet, Refills 0, Tot. Refills 0, Maintenance, 02/07/23 12:29:00 EDT, Route to Pharmacy Electronically... Start Date: 02/07/23 Status: Ordered Farxiga 10 mg oral tablet 1 tablet = 10 mg, By Mouth, Daily, # 90 tablet, 0 Refills, Maintenance, 02/07/23 12:33:00 EDT, Tablet, [facility] #[id number], Partial fill upon patient request if the prescription is for a schedule II opioid drug., 175, cm, 02/07/23 12:05:00 EDT... Start Date: 02/07/23 Status: Ordered ferrous sulfate 325 mg oral enteric coated tablet 325 mg, 1, tablet, By Mouth, Daily, # 90 tablet, Refills 0, Tot. Refills 0, Maintenance, 02/07/23 12:36:00 EDT, Route to Pharmacy Electronically, [facility] #[id number], Partial fill upon patient request if the prescription is for a schedule II o... Start Date: 02/07/23 Status: Ordered finasteride 5 mg oral tablet 1 tablet = 5 mg, By Mouth, Daily, # 90 tablet, 0 Refills, Maintenance, 02/07/23 12:28:00 EDT, Tablet, [facility] #[id number], Partial fill upon patient request if the [...] 02/07/23 12:31:00 EDT, Route to Pharmacy Electronically, [facility] #[id number], Partial fill... Start Date: 02/07/23 Status: Ordered lidocaine 5% topical film 1 patch, Topically, Daily, Apply to back of the neck tender point, 12 hours on then 12 hours off., # 30 patch, 0 Refills, Maintenance, 02/07/23 12:30:00 EDT, Patch, [facility] #[id number], Partial fill upon patient request if the prescription is... Start Date: 02/07/23 Status: Ordered Lipitor 80 mg oral tablet 1 tablet = 80 mg, By Mouth, Daily, # 90 tablet, 0 Refills, Maintenance, 02/07/23 12:28:00 EDT, Tablet, [facility] #[id number], 175, cm, 02/07/23 12:05:00 EDT, Height, 94, kg, 01/23/23 9:15:00 EDT, Dry Weight Start Date: 02/07/23 Status: Ordered midodrine 10 mg oral tablet 1 tablet = 10 mg, By Mouth, 3 times a day, To help maintain systolic blood pressure above 110-120 mmHg, # 90 tablet, 2 Refills, Maintenance, 02/07/23 12:33:00 EDT, Tablet, [facility] #[id number], Partial fill upon patient request if the prescript... Start Date: 02/07/23 Status: Ordered Narcan 4 mg/0.1 mL nasal spray = 4 mg, Nares, Both, Once, PRN Other, To reverse opioid overdose, administer to each nostril, may repeat every 2 to 3 minutes until patient responds, call 911 in the meantime., # 2 each, 0 Refills, Soft Stop, 02/07/23 12:41:00 EDT, [facility]... Start Date: 02/07/23 Status: Ordered NovoLOG [...] 02/07/23 12:29:00 EDT, Route to Pharmacy Electronically, [facility] #[id number],Partial fill upon patient request if the prescripti... [...] 0 Refills, Maintenance, 02/07/23 12:33:00 EDT, Tablet, [facility] #[id number], Partial fill upon patient request if the [...] February 2013. Urologist is Dr. Zafar Roa [facility] ( [phone]). Social History Social History Type Response Smoking [...] Care Nurse Name: Lorraine Araujo RN Position: [facility] AMB Nurse Member Role: Primary Care Nurse Name: Adryan Rm RN Position: [facility] RN Member Role: Primary Care Nurse Name: Peg Trinidad RN Position: [facility] RN Member Role: Primary Care Nurse Name: Fely Gaspar Position: [facility] RN Member Role: Primary Care Nurse Name: Meli Luz LPN Position: [facility] RN Member Role: Primary Care Nurse Name: Matheus Cleveland RN Position: [facility] RN Member Role: Primary Care Nurse Name: Mercedes Maki Position: [facility] RN Member Role: Primary Care Nurse Name: Les Sahu MD Position: [facility] Renal MD Member Role: Lifetime Consulting Physician Address: Address: [address] [facility] [address] [facility] [place] [address]- Name: Gabby Ma RN Position: [facility] SN RN Member Role: Primary Care Nurse Name: Huyen Griffin Position: [facility] RN Member Role: Primary Care Nurse Name: Zo Vivar RN Position: [facility] RN Member Role: Primary Care Nurse Name: Vita ROONEY, Maninder Sanon Position: Reference Physician Member Role: PCP Address: Address: [address] [place] [address]- Care Team Related Persons Name: DES WRIGHT Address: home [address] [place] [address] Name: GISELA WRIGHT Address: home [facility] [address]
--- OUTSIDE RECORDS SUMMARY | 2024-04-15 20:04 | XMS_ITS | Continuity of Care Document ---
Author Organization [facility] ter Address [address] [place] [address]- Care Team Providers Care Grant Officer Name Role Phone Vita ROONEY, Maninder Sanon Primary Care Physic naomi Encounter [facility] Date(s): 02/04/23 - 03/08/[address] [address] Attending Physician: Mirella Rojas MD [...] 02/07/23 12:32:00 EDT, Route to Pharmacy Electronically, [facility] #[id number], Partial nikhil... Start Date: 02/07/23 Status: Ordered aspirin 81 mg oral delayed release tablet 81 mg, 1, tablet, By Mouth, Daily, Do not start aspirin until 06/16/2022, # 90 tablet, Refills 0, Tot. Refills 0, Maintenance, 02/07/23 12:28:00 EDT, Route to Pharmacy Electronically, [facility] #[id number], Partial fill upon patient request if t... [...] mmHg and/or heart rate is below 55 [id number], # 180 tablet, Refills 0, Tot. Refills 0, Maintenance, 02/07/23 12:29:00 EDT, Route to Pharmacy Electronically... Start Date: 02/07/23 Status: Ordered Farxiga 10 mg oral tablet 1 tablet = 10 mg, By Mouth, Daily, # 90 tablet, 0 Refills, Maintenance, 02/07/23 12:33:00 EDT, Tablet, [facility] #[id number], Partial fill upon patient request if the prescription is for a schedule II opioid drug., 175, cm, 02/07/23 12:05:00 EDT... Start Date: 02/07/23 Status: Ordered ferrous sulfate 325 mg oral enteric coated tablet 325 mg, 1, tablet, By Mouth, Daily, # 90 tablet, Refills 0, Tot. Refills 0, Maintenance, 02/07/23 12:36:00 EDT, Route to Pharmacy Electronically, [facility][id number], Partial fill upon patient request if the prescription is for a schedule II o... Start Date: 02/07/23 Status: Ordered finasteride 5 mg oral tablet 1 tablet = 5 mg, By Mouth, Daily, # 90 tablet, 0 Refills, Maintenance, 02/07/23 12:28:00 EDT, Tablet, [facility] #[id number], Partial fill upon patient request if the [...] 02/07/23 12:31:00 EDT, Route to Pharmacy Electronically, [facility] #[id number], Partial fill... Start Date: 02/07/23 Status: Ordered lidocaine 5% topical film 1 patch, Topically, Daily, Apply to back of the neck tender point, 12 hours on then 12 hours off., # 30 patch, 0 Refills, Maintenance, 02/07/23 12:30:00 EDT, Patch, [facility] #[id number], Partial fill upon patient request if the prescription is... Start Date: 02/07/23 Status: Ordered Lipitor 80 mg oral tablet 1 tablet = 80 mg, By Mouth, Daily, # 90 tablet, 0 Refills, Maintenance, 02/07/23 12:28:00 EDT, Tablet, [facility] #[id number], 175, cm, 02/07/23 12:05:00 EDT, Height, 94, kg, 01/23/23 9:15:00 EDT, Dry Weight Start Date: 02/07/23 Status: Ordered midodrine 10 mg oral tablet 1 tablet = 10 mg, By Mouth, 3 times a day, To help maintain systolic blood pressure above 110-120 mmHg, # 90 tablet, 2 Refills, Maintenance, 02/07/23 12:33:00 EDT, Tablet, [facility] #[id number], Partial fill upon patient request if the prescript... Start Date: 02/07/23 Status: Ordered Narcan 4 mg/0.1 mL nasal spray = 4 mg, Nares, Both, Once, PRN Other, To reverse opioid overdose, administer to each nostril, may repeat every 2 to 3 minutes until patient responds, call 911 in the meantime., # 2 each, 0 Refills, Soft Stop, 02/07/23 12:41:00 EDT, [facility] Start Date: 02/07/23 Status: Ordered NovoLOG [...] 02/07/23 12:29:00 EDT, Route to Pharmacy Electronically, [facility] #[id number],Partial fill upon patient request if the prescripti... [...] 0 Refills, Maintenance, 02/07/23 12:33:00 EDT, Tablet, [facility] #[id number], Partial fill upon patient request if the [...] February 2013. Urologist is Dr. Zafar Roa [facility] ). Social History Social History Type [...] Care Nurse Name: Lorraine Araujo RN Position: [facility] AMB Nurse Member Role: Primary Care Nurse Name: Adryan Rm RN Position: [facility] RN Member Role: Primary Care Nurse Name: Peg Trinidad RN Position: [facility] RN Member Role: Primary Care Nurse Name: Fely Gaspar Position: [facility] RN Member Role: Primary Care Nurse Name: Meli Luz LPN Position: [facility] RN Member Role: Primary Care Nurse Name: Matheus Cleveland RN Position: [facility] RN Member Role: Primary Care Nurse Name: Mercedes Maki Position: [facility] RN Member Role: Primary Care Nurse Name: Les Sahu MD Position: [facility] Renal MD Member Role: Lifetime Consulting Physician Address: Address: [address] [facility] [address] [facility] [place], [place] [address]- Name: Gabby Ma RN Position: [facility] SN RN Member Role: Primary Care Nurse Name: Huyen Griffin Position: [facility] RN Member Role: Primary Care Nurse Name: Zo Vivar RN Position: [facility] RN Member Role: Primary Care Nurse Name: Vita ROONEY, Maninder Sanon Position: Reference Physician Member Role: PCP Address: Address: [address] [place] [address]- Care Team Related Persons Name: DES WRIGHT Address: home [address] [place] [address] Name: GISELA WRIGHT Address: home [address] [facility] [place] [address]
--- OUTSIDE RECORDS SUMMARY | 2024-04-15 20:04 | XMS_ITS | Continuity of Care Document ---
Author Organization [facility] ter Address [address] [place] [address]- Care Team Providers Care Lead Software Developer Name Role Phone Vita ROONEY, Maninder Sanon Primary Care Physic naomi [place]counter [facility] [place] Date(s): 02/04/23 - 03/14/[address] [id number] Attending Physician: Mirella Rojas [...] 02/07/23 12:32:00 EDT, Route to Pharmacy Electronically, [facility] #[id number], Partial nikhil... Start Date: 02/07/23 Status: Ordered aspirin 81 mg oral delayed release tablet 81 mg, 1, tablet, By Mouth, Daily, Do not start aspirin until 06/16/2022, # 90 tablet, Refills 0, Tot. Refills 0, Maintenance, 02/07/23 12:28:00 EDT, Route to Pharmacy Electronically, [facility] #[id number], Partial fill upon patient request if t... [...] mmHg and/or heart rate is below 55 [id number], # 180 tablet, Refills 0, Tot. Refills 0, Maintenance, 02/07/23 12:29:00 EDT, Route to Pharmacy Electronically... Start Date: 02/07/23 Status: Ordered Farxiga 10 mg oral tablet 1 tablet = 10 mg, By Mouth, Daily, # 90 tablet, 0 Refills, Maintenance, 02/07/23 12:33:00 EDT, Tablet, [facility] #[id number], Partial fill upon patient request if the prescription is for a schedule II opioid drug., 175, cm, 02/07/23 12:05:00 EDT... Start Date: 02/07/23 Status: Ordered ferrous sulfate 325 mg oral enteric coated tablet 325 mg, 1, tablet, By Mouth, Daily, # 90 tablet, Refills 0, Tot. Refills 0, Maintenance, 02/07/23 12:36:00 EDT, Route to Pharmacy Electronically, [facility] #[id number], Partial fill upon patient request if the prescription is for a schedule II o... Start Date: 02/07/23 Status: Ordered finasteride 5 mg oral tablet 1 tablet = 5 mg, By Mouth, Daily, # 90 tablet, 0 Refills, Maintenance, 02/07/23 12:28:00 EDT, Tablet, [facility] #[id number], Partial fill upon patient request if the [...] 02/07/23 12:31:00 EDT, Route to Pharmacy Electronically, [facility] #[id number], Partial fill... Start Date: 02/07/23 Status: Ordered lidocaine 5% topical film 1 patch, Topically, Daily, Apply to back of the neck tender point, 12 hours on then 12 hours off., # 30 patch, 0 Refills, Maintenance, 02/07/23 12:30:00 EDT, Patch, [facility] #[id number], Partial fill upon patient request if the prescription is... Start Date: 02/07/23 Status: Ordered Lipitor 80 mg oral tablet 1 tablet = 80 mg, By Mouth, Daily, # 90 tablet, 0 Refills, Maintenance, 02/07/23 12:28:00 EDT, Tablet, [facility] #[id number], 175, cm, 02/07/23 12:05:00 EDT, Height, 94, kg, 01/23/23 9:15:00 EDT, Dry Weight Start Date: 02/07/23 Status: Ordered midodrine 10 mg oral tablet 1 tablet = 10 mg, By Mouth, 3 times a day, To help maintain systolic blood pressure above 110-120 mmHg, # 90 tablet, 2 Refills, Maintenance, 02/07/23 12:33:00 EDT, Tablet, [facility] #[id number], Partial fill upon patient request if the prescript... Start Date: 02/07/23 Status: Ordered Narcan 4 mg/0.1 mL nasal spray = 4 mg, Nares, Both, Once, PRN Other, To reverse opioid overdose, administer to each nostril, may repeat every 2 to 3 minutes until patient responds, call 911 in the meantime., # 2 each, 0 Refills, Soft Stop, 02/07/23 12:41:00 EDT, [facility]... Start Date: 02/07/23 Status: Ordered NovoLOG [...] 02/07/23 12:29:00 EDT, Route to Pharmacy Electronically, [facility] #[id number],Partial fill upon patient request if the prescripti... [...] 0 Refills, Maintenance, 02/07/23 12:33:00 EDT, Tablet, [facility] #[id number], Partial fill upon patient request if the [...] February 2013. Urologist is Dr. Zafar [facility] ). Social History Social History Type [...] RN Position: [facility] AMB Nurse Member Role: Primary [...] Role: Lifetime Consulting Physician Address: Address: [address] [facility], [place] [address]- Name: Gabby Ma RN Position: [facility] [...] PCP Address: Address: [address] [place] [address]- Care Team Related Persons Name: DES WRIGHT Address: home [address] [place] [address] Name: GISELA WRIGHT Address: home [facility]KNOWN [facility] [place] [address]
--- OUTSIDE RECORDS SUMMARY | 2024-04-15 20:04 | XMS_ITS | Continuity of Care Document ---
Author Organization [facility] ter Address [address] [place] [address]- Care Team Providers Care Grand Scribe Name Role Phone Vita ROONEY, Maninder Sanon Primary Care Physic naomi Encounter [facility] [place] Date(s): 02/04/23 - 03/10/[address] [address] Attending Physician: Mirella Rojas MD Admitting [...] 02/07/23 12:32:00 EDT, Route to Pharmacy Electronically, [facility] #[id number], Partial nikhil... Start Date: 02/07/23 Status: Ordered aspirin 81 mg oral delayed release tablet 81 mg, 1, tablet, By Mouth, Daily, Do not start aspirin until 06/16/2022, # 90 tablet, Refills 0, Tot. Refills 0, Maintenance, 02/07/23 12:28:00 EDT, Route to Pharmacy Electronically, [facility] #[id number], Partial fill upon patient request if t... [...] mmHg and/or heart rate is below 55 [id number], # 180 tablet, Refills 0, Tot. Refills 0, Maintenance, 02/07/23 12:29:00 EDT, Route to Pharmacy Electronically... Start Date: 02/07/23 Status: Ordered Farxiga 10 mg oral tablet 1 tablet = 10 mg, By Mouth, Daily, # 90 tablet, 0 Refills, Maintenance, 02/07/23 12:33:00 EDT, Tablet, [facility] #[id number], Partial fill upon patient request if the prescription is for a schedule II opioid drug., 175, cm, 02/07/23 12:05:00 EDT... Start Date: 02/07/23 Status: Ordered ferrous sulfate 325 mg oral enteric coated tablet 325 mg, 1, tablet, By Mouth, Daily, # 90 tablet, Refills 0, Tot. Refills 0, Maintenance, 02/07/23 12:36:00 EDT, Route to Pharmacy Electronically, [facility] #[id number], Partial fill upon patient request if the prescription is for a schedule II o... Start Date: 02/07/23 Status: Ordered finasteride 5 mg oral tablet 1 tablet = 5 mg, By Mouth, Daily, # 90 tablet, 0 Refills, Maintenance, 02/07/23 12:28:00 EDT, Tablet, [facility] #[id number], Partial fill upon patient request if the [...] 02/07/23 12:31:00 EDT, Route to Pharmacy Electronically, [facility] #[id number], Partial fill... Start Date: 02/07/23 Status: Ordered lidocaine 5% topical film 1 patch, Topically, Daily, Apply to back of the neck tender point, 12 hours on then 12 hours off., # 30 patch, 0 Refills, Maintenance, 02/07/23 12:30:00 EDT, Patch, [facility] #[id number], Partial fill upon patient request if the prescription is... Start Date: 02/07/23 Status: Ordered Lipitor 80 mg oral tablet 1 tablet = 80 mg, By Mouth, Daily, # 90 tablet, 0 Refills, Maintenance, 02/07/23 12:28:00 EDT, Tablet, [facility] #[id number], 175, cm, 02/07/23 12:05:00 EDT, Height, 94, kg, 01/23/23 9:15:00 EDT, Dry Weight Start Date: 02/07/23 Status: Ordered midodrine 10 mg oral tablet 1 tablet = 10 mg, By Mouth, 3 times a day, To help maintain systolic blood pressure above 110-120 mmHg, # 90 tablet, 2 Refills, Maintenance, 02/07/23 12:33:00 EDT, Tablet, [facility] #[id number], Partial fill upon patient request if the prescript... Start Date: 02/07/23 Status: Ordered Narcan 4 mg/0.1 mL nasal spray = 4 mg, Nares, Both, Once, PRN Other, To reverse opioid overdose, administer to each nostril, may repeat every 2 to 3 minutes until patient responds, call 911 in the meantime., # 2 each, 0 Refills, Soft Stop, 02/07/23 12:41:00 EDT, [facility] ST... Start Date: 02/07/23 Status: Ordered NovoLOG [...] 02/07/23 12:29:00 EDT, Route to Pharmacy Electronically, [facility] #[id number],Partial fill upon patient request if the prescripti... [...] 0 Refills, Maintenance, 02/07/23 12:33:00 EDT, Tablet, [facility] #[id number], Partial fill upon patient request if the [...] February 2013. Urologist is Dr. Zafar Ro[facility] ). Social History Social History Type [...] Care Nurse Name: Lorraine Araujo RN Position: [facility] AMB Nurse Member Role: Primary Care Nurse Name: Adryan Rm RN Position: [facility] RN Member Role: Primary Care Nurse Name: Peg Trinidad RN Position: [facility] RN Member Role: Primary Care Nurse Name: Fely Gaspar Position: [facility] RN Member Role: Primary Care Nurse Name: Meli Luz LPN Position: [facility] RN Member Role: Primary Care Nurse Name: Matheus Cleveland RN Position: [facility] RN Member Role: Primary Care Nurse Name: Mercedes Maki Position: [facility] RN Member Role: Primary Care Nurse Name: Les Sahu MD Position: [facility] Renal MD Member Role: Lifetime Consulting Physician Address: Address: [address] [facility], [place] [address]- Name: Gabby Ma RN Position: [facility] SN RN Member Role: Primary Care Nurse Name: Huyen Griffin Position: [facility] RN Member Role: Primary Care Nurse Name: Zo Vivar RN Position: [facility] RN Member Role: Primary Care Nurse Name: Vita ROONEY, Maninder Sanon Position: Reference Physician Member Role: PCP Address: Address: [address] [place] [address]- Care Team Related Persons Name: DES WRIGHT Address: home [address] [place] [address] Name: GISELA WRIGHT Address: home [place] [address]
--- OUTSIDE RECORDS SUMMARY | 2024-04-15 20:04 | XMS_ITS | Continuity of Care Document ---
Author Organization [facility] Address [address] [place] [address]- Care Team Providers Care Launchman Name Role Phone Vita ROONEY, Maninder Sanon Primary Care Physic naomi Encounter [facility] Date(s): 03/05/23 - 04/04/23 [facility] [address] [place] [id number] Attending Physician: Laina Carlos Admitting Physician: AdmtrLaina [...] 02/07/23 12:32:00 EDT, Route to Pharmacy Electronically, [facility] #[id number], Partial nikhil... Start Date: 02/07/23 Status: Ordered aspirin 81 mg oral delayed release tablet 81 mg, 1, tablet, By Mouth, Daily, Do not start aspirin until 06/16/2022, # 90 tablet, Refills 0, Tot. Refills 0, Maintenance, 02/07/23 12:28:00 EDT, Route to Pharmacy Electronically, [facility] #[id number], Partial fill upon patient request if t... [...] mmHg and/or heart rate is below 55 [id number], # 180 tablet, Refills 0, Tot. Refills 0, Maintenance, 02/07/23 12:29:00 EDT, Route to Pharmacy Electronically... Start Date: 02/07/23 Status: Ordered Farxiga 10 mg oral tablet 1 tablet = 10 mg, By Mouth, Daily, # 90 tablet, 0 Refills, Maintenance, 02/07/23 12:33:00 EDT, Tablet, [facility] #[id number], Partial fill upon patient request if the prescription is for a schedule II opioid drug., 175, cm, 02/07/23 12:05:00 EDT... Start Date: 02/07/23 Status: Ordered ferrous sulfate 325 mg oral enteric coated tablet 325 mg, 1, tablet, By Mouth, Daily, # 90 tablet, Refills 0, Tot. Refills 0, Maintenance, 02/07/23 12:36:00 EDT, Route to Pharmacy Electronically, [facility] #[id number], Partial fill upon patient request if the prescription is for a schedule II o... Start Date: 02/07/23 Status: Ordered finasteride 5 mg oral tablet 1 tablet = 5 mg, By Mouth, Daily, # 90 tablet, 0 Refills, Maintenance, 02/07/23 12:28:00 EDT, Tablet, [facility] #[id number], Partial fill upon patient request if the [...] 0 Refills, Maintenance, 02/07/23 12:36:00 EDT, Syrup, [facility]... Start Date: 02/07/23 Status: Ordered Lasix 40 mg oral tablet 40 mg, 1, tablet, By Mouth, Daily, For ascites. Hold if systolic blood pressure is below 120 mmHg.,# 90 tablet, Refills 0, Tot. Refills 0, Maintenance, 02/07/23 12:31:00 EDT, Route to Pharmacy Electronically, [facility] #[id number], Partial fill... Start Date: 02/07/23 Status: Ordered lidocaine 5% topical film 1 patch, Topically, Daily, Apply to back of the neck tender point, 12 hours on then 12 hours off., # 30 patch, 0 Refills, Maintenance, 02/07/23 12:30:00 EDT, Patch, [facility] #[id number], Partial fill upon patient request if the prescription is... Start Date: 02/07/23 Status: Ordered Lipitor 80 mg oral tablet 1 tablet = 80 mg, By Mouth, Daily, # 90 tablet, 0 Refills, Maintenance, 02/07/23 12:28:00 EDT, Tablet, [facility] #[id number], 175, cm, 02/07/23 12:05:00 EDT, Height, 94, kg, 01/23/23 9:15:00 EDT, Dry Weight Start Date: 02/07/23 Status: Ordered midodrine 10 mg oral tablet 1 tablet = 10 mg, By Mouth, 3 times a day, To help maintain systolic blood pressure above 110-120 mmHg, # 90 tablet, 2 Refills, Maintenance, 02/07/23 12:33:00 EDT, Tablet, [facility] #[id number], Partial fill upon patient request if the prescript... Start Date: 02/07/23 Status: Ordered Narcan 4 mg/0.1 mL nasal spray = 4 mg, Nares, Both, Once, PRN Other, To reverse opioid overdose, administer to each nostril, may repeat every 2 to 3 minutes until patient responds, call 911 in the meantime., # 2 each, 0 Refills, Soft Stop, 02/07/23 12:41:00 EDT, [facility] ST... Start Date: 02/07/23 Status: Ordered NovoLOG [...] 02/07/23 12:29:00 EDT, Route to Pharmacy Electronically, [facility] #[id number],Partial fill upon patient request if the prescripti... [...] 0 Refills, Maintenance, 02/07/23 12:33:00 EDT, Tablet, [facility] #[id number], Partial fill upon patient request if the [...] February 2013. Urologist is Dr. Zafar Roa [facility] ). Social History Social History Type Response Smoking Status Never (less than 100 in lifetime) entered on: 06/02/22 Sex Laboratory * Event Display: Non [facility] Lab Results Authored Date: Patient Care team information Care Team Personnel Name: Kalyani Miller LPN Position: S RN Member Role: Primary Care Nurse Name: Nadiya Coleman RN Position: S RN Member Role: Primary Care Nurse Name: Sobia Hilliard RN Position: S RN Supv Member Role: Primary Care Nurse Name: Lupe Díaz RN Position: [facility] RN Member Role: Primary Care Nurse Name: Lorraine Araujo RN Position: [facility] AMB Nurse Member Role: Primary Care Nurse Name: Adryan Rm RN Position: [facility] RN Member Role: Primary Care Nurse Name: Peg Trinidad RN Position: [facility] RN Member Role: Primary Care Nurse Name: Fely Gaspar Position: [facility] RN Member Role: Primary Care Nurse Name: Meli Luz LPN Position: [facility] RN Member Role: Primary Care Nurse Name: Matheus Cleveland RN Position: [facility] RN Member Role: Primary Care Nurse Name: Mercedes Maki Position: [facility] RN Member Role: Primary Care Nurse Name: Les Sahu MD Position: [facility] Renal MD Member Role: Lifetime Consulting Physician Address: Address: [address] [place] [address] [address] [facility] [place], [place] [address]- Name: Gabby Ma RN Position: [facility] SN RN Member Role: Primary Care Nurse Name: Huyen Griffin Position: [facility] RN Member Role: Primary Care Nurse Name: Zo Vivar RN Position: [facility] RN Member Role: Primary Care Nurse Name: Vita ROONEY, Maninder Sanon Position: Reference Physician Member Role: PCP Address: Address: [address] [place] [address]- Care Team Related Persons Name: DES WRIGHT Address: home [address] [place] [id number] Name: GISELA WRIGHT Address: [place] [address]
--- OUTSIDE RECORDS SUMMARY | 2024-04-15 20:04 | XMS_ITS | Continuity of Care Document ---
Author Organization [facility] ter Address [address] [place] [address]- Care Team Providers Care Fire Supervisor Name Role Phone Vita ROONEY, Maninder Sanon Primary Care Physic naomi Encounter [facility] [place] Date(s): 02/04/23 - 04/04/[address] [address] Attending Physician: [...] 02/07/23 12:32:00 EDT, Route to Pharmacy Electronically, [facility] #[id number], Partial nikhil... Start Date: 02/07/23 Status: Ordered aspirin 81 mg oral delayed release tablet 81 mg, 1, tablet, By Mouth, Daily, Do not start aspirin until 06/16/2022, # 90 tablet, Refills 0, Tot. Refills 0, Maintenance, 02/07/23 12:28:00 EDT, Route to Pharmacy Electronically, [facility] #[id number], Partial fill upon patient request if t... [...] mmHg and/or heart rate is below 55 [id number], # 180 tablet, Refills 0, Tot. Refills 0, Maintenance, 02/07/23 12:29:00 EDT, Route to Pharmacy Electronically... Start Date: 02/07/23 Status: Ordered Farxiga 10 mg oral tablet 1 tablet = 10 mg, By Mouth, Daily, # 90 tablet, 0 Refills, Maintenance, 02/07/23 12:33:00 EDT, Tablet, [facility] #[id number], Partial fill upon patient request if the prescription is for a schedule II opioid drug., 175, cm, 02/07/23 12:05:00 EDT... Start Date: 02/07/23 Status: Ordered ferrous sulfate 325 mg oral enteric coated tablet 325 mg, 1, tablet, By Mouth, Daily, # 90 tablet, Refills 0, Tot. Refills 0, Maintenance, 02/07/23 12:36:00 EDT, Route to Pharmacy Electronically, [facility] #[id number], Partial fill upon patient request if the prescription is for a schedule II o... Start Date: 02/07/23 Status: Ordered finasteride 5 mg oral tablet 1 tablet = 5 mg, By Mouth, Daily, # 90 tablet, 0 Refills, Maintenance, 02/07/23 12:28:00 EDT, Tablet, [facility] #[id number], Partial fill upon patient request if the [...] 12:31:00 EDT, Route to Pharmacy Electronically, [facility] #[id number], Partial fill... Start Date: 02/07/23 Status: Ordered lidocaine 5% topical film 1 patch, Topically, Daily, Apply to back of the neck tender point, 12 hours on then 12 hours off., # 30 patch, 0 Refills, Maintenance, 02/07/23 12:30:00 EDT, Patch, [facility] #[id number], Partial fill upon patient request if the prescription is... Start Date: 02/07/23 Status: Ordered Lipitor 80 mg oral tablet 1 tablet = 80 mg, By Mouth, Daily, # 90 tablet, 0 Refills, Maintenance, 02/07/23 12:28:00 EDT, Tablet, [facility] #[id number], 175, cm, 02/07/23 12:05:00 EDT, Height, 94, kg, 01/23/23 9:15:00 EDT, Dry Weight Start Date: 02/07/23 Status: Ordered midodrine 10 mg oral tablet 1 tablet = 10 mg, By Mouth, 3 times a day, To help maintain systolic blood pressure above 110-120 mmHg, # 90 tablet, 2 Refills, Maintenance, 02/07/23 12:33:00 EDT, Tablet, [facility] #[id number], Partial fill upon patient request if the prescript... Start Date: 02/07/23 Status: Ordered Narcan 4 mg/0.1 mL nasal spray = 4 mg, Nares, Both, Once, PRN Other, To reverse opioid overdose, administer to each nostril, may repeat every 2 to 3 minutes until patient responds, call 911 in the meantime., # 2 each, 0 Refills, Soft Stop, 02/07/23 12:41:00 EDT, [facility]... Start Date: 02/07/23 Status: Ordered NovoLOG [...] 02/07/23 12:29:00 EDT, Route to Pharmacy Electronically, [facility] #[id number],Partial fill upon patient request if the prescripti... [...] 0 Refills, Maintenance, 02/07/23 12:33:00 EDT, Tablet, [facility] #[id number], Partial fill upon patient request if the [...] February 2013. Urologist is Dr. Zafar [facility] ). Social History Social History Type [...] Care Nurse Name: Lorraine Araujo RN Position: [facility] AMB Nurse Member Role: Primary Care Nurse Name: Adryan Rm RN Position: [facility] RN Member Role: Primary Care Nurse Name: Peg Trinidad RN Position: [facility] RN Member Role: Primary Care Nurse Name: Fely Gaspar Position: [facility] RN Member Role: Primary Care Nurse Name: Meli Luz LPN Position: [facility] RN Member Role: Primary Care Nurse Name: Matheus Cleveland RN Position: [facility] RN Member Role: Primary Care Nurse Name: Mercedes Maki Position: [facility] RN Member Role: Primary Care Nurse Name: Les Sahu MD Position: [facility] Renal MD Member Role: Lifetime Consulting Physician Address: Address: [address] [facility], [place] [address]- Name: Gabby Ma RN Position: [facility] SN RN Member Role: Primary Care Nurse Name: Huyen Griffin Position: [facility] RN Member Role: Primary Care Nurse Name: Zo Vivar RN Position: [facility] RN Member Role: Primary Care Nurse Name: Vita ROONEY, Maninder Sanon Position: Reference Physician Member Role: PCP Address: Address: [address] [place] [address]- Care Team Related Persons Name: DES WRIGHT Address: home [address] [place] [address] Name: GISELA WRIGHT Address: home [address]KNOWN [facility] [place] [address]
--- OUTSIDE RECORDS SUMMARY | 2024-04-15 20:04 | XMS_ITS | Continuity of Care Document ---
Author Organization [facility] ter Address [address] [place] [address]- Care Team Providers Care Propulsion Machinery Service Engineer Name Role Phone Vita ROONEY, Maninder Sanon Primary Care Physic naomi [place] [facility] [place] - 03/09/[address] [address] Attending Physician: Mirella Rojas [...] 02/07/23 12:32:00 EDT, Route to Pharmacy Electronically, [facility] #[id number], Partial nikhil... Start Date: 02/07/23 Status: Ordered aspirin 81 mg oral delayed release tablet 81 mg, 1, tablet, By Mouth, Daily, Do not start aspirin until 06/16/2022, # 90 tablet, Refills 0, Tot. Refills 0, Maintenance, 02/07/23 12:28:00 EDT, Route to Pharmacy Electronically, [facility] #[id number], Partial fill upon patient request if t... [...] mmHg and/or heart rate is below 55 [id number], # 180 tablet, Refills 0, Tot. Refills 0, Maintenance, 02/07/23 12:29:00 EDT, Route to Pharmacy Electronically... Start Date: 02/07/23 Status: Ordered Farxiga 10 mg oral tablet 1 tablet = 10 mg, By Mouth, Daily, # 90 tablet, 0 Refills, Maintenance, 02/07/23 12:33:00 EDT, Tablet, [facility] #[id number], Partial fill upon patient request if the prescription is for a schedule II opioid drug., 175, cm, 02/07/23 12:05:00 EDT... Start Date: 02/07/23 Status: Ordered ferrous sulfate 325 mg oral enteric coated tablet 325 mg, 1, tablet, By Mouth, Daily, # 90 tablet, Refills 0, Tot. Refills 0, Maintenance, 02/07/23 12:36:00 EDT, Route to Pharmacy Electronically, [facility] #[id number], Partial fill upon patient request if the prescription is for a schedule II o... Start Date: 02/07/23 Status: Ordered finasteride 5 mg oral tablet 1 tablet = 5 mg, By Mouth, Daily, # 90 tablet, 0 Refills, Maintenance, 02/07/23 12:28:00 EDT, Tablet, [facility] #[id number], Partial fill upon patient request if the [...] 02/07/23 12:31:00 EDT, Route to Pharmacy Electronically, [facility] #[id number], Partial fill... Start Date: 02/07/23 Status: Ordered lidocaine 5% topical film 1 patch, Topically, Daily, Apply to back of the neck tender point, 12 hours on then 12 hours off., # 30 patch, 0 Refills, Maintenance, 02/07/23 12:30:00 EDT, Patch, [facility] #[id number], Partial fill upon patient request if the prescription is... Start Date: 02/07/23 Status: Ordered Lipitor 80 mg oral tablet 1 tablet = 80 mg, By Mouth, Daily, # 90 tablet, 0 Refills, Maintenance, 02/07/23 12:28:00 EDT, Tablet, [facility] #[id number], 175, cm, 02/07/23 12:05:00 EDT, Height, 94, kg, 01/23/23 9:15:00 EDT, Dry Weight Start Date: 02/07/23 Status: Ordered midodrine 10 mg oral tablet 1 tablet = 10 mg, By Mouth, 3 times a day, To help maintain systolic blood pressure above 110-120 mmHg, # 90 tablet, 2 Refills, Maintenance, 02/07/23 12:33:00 EDT, Tablet, [facility] #[id number], Partial fill upon patient request if the prescript... Start Date: 02/07/23 Status: Ordered Narcan 4 mg/0.1 mL nasal spray = 4 mg, Nares, Both, Once, PRN Other, To reverse opioid overdose, administer to each nostril, may repeat every 2 to 3 minutes until patient responds, call 911 in the meantime., # 2 each, 0 Refills, Soft Stop, 02/07/23 12:41:00 EDT, [facility]... Start Date: 02/07/23 Status: Ordered NovoLOG [...] 02/07/23 12:29:00 EDT, Route to Pharmacy Electronically, [facility] #[id number],Partial fill upon patient request if the prescripti... [...] 0 Refills, Maintenance, 02/07/23 12:33:00 EDT, Tablet, [facility] #[id number], Partial fill upon patient request if the [...] February 2013. Urologist is Dr. Zafar Roa [facility] ). Social History Social History Type [...] Care Nurse Name: Lorraine Araujo RN Position: [facility] AMB Nurse Member Role: Primary Care Nurse Name: Adryan Rm RN Position: [facility] RN Member Role: Primary Care Nurse Name: Peg Trinidad RN Position: [facility] RN Member Role: Primary Care Nurse Name: Fely Gaspar Position: [facility] RN Member Role: Primary Care Nurse Name: Meli Luz LPN Position: [facility] RN Member Role: Primary Care Nurse Name: Matheus Cleveland RN Position: [facility] RN Member Role: Primary Care Nurse Name: Mercedes Maki Position: [facility] RN Member Role: Primary Care Nurse Name: Les Sahu MD Position: [facility] Renal MD Member Role: Lifetime Consulting Physician Address: Address: [address] [facility] [address] [facility] [place], [place] [address]- Name: Gabby Ma RN Position: [facility] SN RN Member Role: Primary Care Nurse Name: Huyen Griffin Position: [facility] RN Member Role: Primary Care Nurse Name: Zo Vivar RN Position: [facility] RN Member Role: Primary Care Nurse Name: Vita ROONEY, Maninder Sanon Position: Reference Physician Member Role: PCP Address: Address: [address] [place] [address]- Care Team Related Persons Name: DES WRIGHT Address: home [address] [place] [address] Name: GISELA WRIGHT Address: [place] [address]
--- OUTSIDE RECORDS SUMMARY | 2024-04-15 20:04 | XMS_ITS | Continuity of Care Document ---
Author Organization [facility] ter Address [address] [place] [address]- Care Team Providers Care Information Security Engineer Name Role Phone Vita ROONEY, Maninder Sanon Primary Care Physic naomi En[place] [facility] [place] Date(s): 02/04/23 - 04/01/[address] [address] Attending Physician: Mirella Rojas MD [...] 02/07/23 12:32:00 EDT, Route to Pharmacy Electronically, [facility] #[id number], Partial nikhil... Start Date: 02/07/23 Status: Ordered aspirin 81 mg oral delayed release tablet 81 mg, 1, tablet, By Mouth, Daily, Do not start aspirin until 06/16/2022, # 90 tablet, Refills 0, Tot. Refills 0, Maintenance, 02/07/23 12:28:00 EDT, Route to Pharmacy Electronically, [facility] #[id number], Partial fill upon patient request if t... [...] mmHg and/or heart rate is below 55 [id number], # 180 tablet, Refills 0, Tot. Refills 0, Maintenance, 02/07/23 12:29:00 EDT, Route to Pharmacy Electronically... Start Date: 02/07/23 Status: Ordered Farxiga 10 mg oral tablet 1 tablet = 10 mg, By Mouth, Daily, # 90 tablet, 0 Refills, Maintenance, 02/07/23 12:33:00 EDT, Tablet, [facility] #[id number], Partial fill upon patient request if the prescription is for a schedule II opioid drug., 175, cm, 02/07/23 12:05:00 EDT... Start Date: 02/07/23 Status: Ordered ferrous sulfate 325 mg oral enteric coated tablet 325 mg, 1, tablet, By Mouth, Daily, # 90 tablet, Refills 0, Tot. Refills 0, Maintenance, 02/07/23 12:36:00 EDT, Route to Pharmacy Electronically, [facility] #[id number], Partial fill upon patient request if the prescription is for a schedule II o... Start Date: 02/07/23 Status: Ordered finasteride 5 mg oral tablet 1 tablet = 5 mg, By Mouth, Daily, # 90 tablet, 0 Refills, Maintenance, 02/07/23 12:28:00 EDT, Tablet, [facility] #[id number], Partial fill upon patient request if the [...] 02/07/23 12:31:00 EDT, Route to Pharmacy Electronically, [facility] #[id number], Partial fill... Start Date: 02/07/23 Status: Ordered lidocaine 5% topical film 1 patch, Topically, Daily, Apply to back of the neck tender point, 12 hours on then 12 hours off., # 30 patch, 0 Refills, Maintenance, 02/07/23 12:30:00 EDT, Patch, [facility] #[id number], Partial fill upon patient request if the prescription is... Start Date: 02/07/23 Status: Ordered Lipitor 80 mg oral tablet 1 tablet = 80 mg, By Mouth, Daily, # 90 tablet, 0 Refills, Maintenance, 02/07/23 12:28:00 EDT, Tablet, [facility] #[id number], 175, cm, 02/07/23 12:05:00 EDT, Height, 94, kg, 01/23/23 9:15:00 EDT, Dry Weight Start Date: 02/07/23 Status: Ordered midodrine 10 mg oral tablet 1 tablet = 10 mg, By Mouth, 3 times a day, To help maintain systolic blood pressure above 110-120 mmHg, # 90 tablet, 2 Refills, Maintenance, 02/07/23 12:33:00 EDT, Tablet, [facility] #[id number], Partial fill upon patient request if the prescript... Start Date: 02/07/23 Status: Ordered Narcan 4 mg/0.1 mL nasal spray = 4 mg, Nares, Both, Once, PRN Other, To reverse opioid overdose, administer to each nostril, may repeat every 2 to 3 minutes until patient responds, call 911 in the meantime., # 2 each, 0 Refills, Soft Stop, 02/07/23 12:41:00 EDT, [facility]... Start Date: 02/07/23 Status: Ordered NovoLOG [...] 02/07/23 12:29:00 EDT, Route to Pharmacy Electronically, [facility] #[id number],Partial fill upon patient request if the prescripti... [...] 0 Refills, Maintenance, 02/07/23 12:33:00 EDT, Tablet, [facility] #[id number], Partial fill upon patient request if the [...] February 2013. Urologist is Dr. Zafar Roa [facility] ). Social History Social History Type [...] Consulting Physician Address: Address: [address] [facility] [address] [facility] [place], [place] [address]- Name: Gabby Ma RN Position: [facility] [...] PCP Address: Address: [address] [place] [address]- Care Team Related Persons Name: DES WRIGHT Address: home [address] [place] [address] Name: GISELA WRIGHT Address: home [place] [address]
--- OUTSIDE RECORDS SUMMARY | 2024-04-15 20:04 | XMS_ITS | Continuity of Care Document ---
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 Name Role Phone Vita ROONEY, Maninder Sanon Primary Care Physic naomi [place] [facility] [place]09/22 - 01/11/[address] [address]- Discharge Disposition: A-D/C Home Attending Physician: Jody ROONEY, Wilfrido Wheatley Admitting Physician: Fei ROONEY, Radha Referring Physician: Eveline Meneses MD Allergies, Adverse Reactions, Alerts Substance Reaction Severity Status lisinopril 1 throat swelling Active Contrast Dye Unknown Unknown Active Latex Rash Active 1throat swelling Medications aspirin 81 mg oral delayed release tablet 81 mg, By Mouth, Daily, # 30 tablet, Refills 2, Tot. Refills 2, Maintenance, 01/11/22 16:18:00 EDT,Route to Pharmacy Electronically, [facility] #[id number], Partial fill upon patient request ifthe prescription is for a schedule II opioid drug.,... Start Date: 01/11/22 Stop Date: 04/11/22 Status: Ordered clopidogrel 75 mg oral tablet 75 mg, 1, tablet, By Mouth, Daily, # 30 tablet, Refills 0, Tot. Refills 0, Maintenance, 01/11/22 16:18:00 EDT, Route to Pharmacy Electronically, [facility] #[id number], Partial fill upon patientrequest if the prescription is for a schedule II op... Start Date: 01/11/22 Status: Ordered ferrous sulfate 325 mg oral [...] 0 Refills, Maintenance, 01/11/22 16:18:00 EDT, Tablet, [facility], 175.2, cm, 01/11/22 13:55:00 EDT, Height, 100.1, kg, 01/09/2212:22:00 EDT, Dry Weight Start Date: 01/11/22 Stop Date: 02/10/22 Status: Ordered metformin 1000 mg oral tablet 1 tablet = 1,000 mg, By Mouth, 2 times a day, # 180 tablet, 0 Refills, Maintenance, Tablet Start Date: 07/30/13 Status: Ordered metoprolol 25 mg oral tablet 75 mg, Tablet, By Mouth, 01/11/22 9:00:00 EDT Start Date: 01/11/22 Stop Date: 01/11/22 Status: Completed metoprolol succinate 100 mg oral capsule, extended release 1 capsule = 100 mg, By Mouth, Daily, # 30 capsule, 0 Refills, Maintenance, 01/11/22 16:22:00 EDT, ER Capsule, [email or web address] #[id number], Partial fill upon patient request if the prescription is fora schedule II opioid drug., 175.2, cm, 01/11/22 13:... Start Date: 01/11/22 Status: Ordered NovoLOG FlexTouch = 20 units, Subcutaneous Injection, 3 times a day before meals and bedtime, 0 Refills, Maintenance,02/10/19 11:14:18 EDT Start Date: 02/10/19 Status: Ordered raNITIdine 150 mg oral capsule [...] 0 Refills, Maintenance, 01/11/22 16:17:00 EDT, Tablet, [email or web address] #[id number], Partial fill upon patient request if the [...] February 2013. Urologist is Dr. Zafar Roa [facility] ). Results Radiology Reports * Exam Date Time Procedure Performing Provider Status 01/10/22 7:19 AM Chest Portable Mark Ventura; Auth (Michael ified) Notes: (Chest Portable) Reason For Exam: Shortness of Breath RESULT: Chest Portable Chest Portable Reason: Shortness of Breath COMPARISON: 01/09/2022 FINDINGS: LINES AND TUBES: None. LUNGS AND PLEURA: Persistent but improving bilateral perihilar airspace and interstitial opacities. Increased pulmonary vascularity is also improving. No large effusion. No pneumothorax. HEART, MEDIASTINUM AND KAYE: Moderate prominence of the cardiac silhouette, unchanged. Normal upper mediastinal and hilar contour. BONES AND SOFT TISSUES: No acute abnormality. IMPRESSION: Persistent but improving moderate pulmonary edema. WSN: [id number] Ordering Physician: Yani Lazo Dictated By: Guillermo Melgar MD Dictated Date/Time: 01/10/22 11:19 a Reviewed By: Guillermo Melgar MD Signed By: Guillermo Melgar MD Signed Date/Time: 01/10/22 11:19 am Transcribed By: CARLOS Transcribed Date/Time: 01/10/22 11:17 am * Exam Date Time Procedure Performing Provider Status 01/09/22 2:45 PM Chest Portable Rosio Weiner; Auth ( Verified) Notes: (Chest Portable) Reason For Exam: CHF RESULT: Chest Portable Chest Portable Reason: CHF; Clinical Question(s): CHF COMPARISON: 07/30/2013. FINDINGS: Heart appears enlarged with perihilar airspace and interstitial opacities predominantly involving the mid and lower lung kramer. Prominent central pulmonary vessels. IMPRESSION: Findings most consistent with [id number]-vh-avcruixj pulmonary edema rather than multifocal pneumonia although the latter is not entirely excluded. A [facility] message has been communicated via the [employer] system on 01/09/2022 5:12 PM, Message ID [id number]. WSN: [id number] Ordering Physician: Radha Enamorado Dictated By: Ron Purdy MD Dictated Date/Time: 01/09/22 5:12 pm Reviewed By: Ron Purdy MD Signed By: Ron Purdy MD Signed Date/Time: 01/09/22 5:12 pm Transcribed By: CARLOS Transcribed Date/Time: 01/09/22 5:10 pm Vital Signs Most recent to oldest [Reference Range]: 1 2 3 Height 175.2 cm (01/11/22 1:55 PM) 175.2 cm (01/11/22 7:46 AM) 175.2 cm (01/11/22 2:16 AM) Weight 96.4 kg (01/11/22 2:18 AM) 92.7 kg (01/10/22 7:20 AM) 100.1 kg (01/08/22 12:22 PM) Oxygen Saturation [94-100 %] 98 % (01/11/22 1:55 PM) 97 % (01/11/22 7:46 AM) 98 % (01/11/22 2:16 AM) Pulse Rate [55-90 bpm] 68 bpm (01/11/22 1:55 PM) 68 bpm (01/11/22 9:02 AM) 68 bpm (01/11/22 7:46 AM) Body Mass Index [18.5-24.99] 32.61 *>HHI* (01/08/22 10:30 AM) Blood Pressure [90-138/55-84 mm Hg] 113/89mm Hg (01/11/22 1:55 PM) 134/72mm Hg (01/11/22 9:02 AM) 134/72mm Hg (01/11/22 7:46 AM) Respiratory Rate [16-30 br/min] 18 br/min (01/11/22 1:55 PM) 18 br/min (01/11/22 7:46 AM) 18 br/min (01/11/22 2:16 AM) Temperature [96.8-100.4 DegF] 97.3 DegF (01/11/22 1:55 PM) 97.8 DegF (01/11/22 7:46 AM) 97.2 DegF (01/11/22 2:16 AM) Liters per Minute 2 L/min (01/11/22 7:46 AM) 2.5 L/min (01/10/22 7:58 PM) 2 L/min (01/10/22 2:00 PM) Mode of Delivery (Oxygen) Room air (01/11/22 1:55 PM) Nasal cannula (01/11/22 7:46 AM) CPAP (01/11/22 2:16 AM) Blood pressure sites Arm, right (01/11/22 1:55 PM) Arm, right (01/11/22 7:46 AM) Arm, left (01/11/22 2:16 AM) Temperature Route Oral (01/11/22 1:55 PM) Oral (01/11/22 7:46 AM) Temporal (01/11/22 2:16 AM) Dry Weight 100.1 kg (01/08/22 12:22 PM) 100.1 kg (01/08/22 10:00 AM) Weight Obtained Via Bed scale (01/11/22 2:18 AM) Bed scale (01/10/22 7:20 AM)
--- OUTSIDE RECORDS SUMMARY | 2024-04-15 20:04 | XMS_ITS | Continuity of Care Document ---
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 Start Date: 08/21/23 Stop Date: 05/17/24 Status: Ordered amoxicillin 500 mg oral capsule 2 capsule = 1,000 mg, By Mouth, 3 times a day, # 240 capsule, 0 Refills, Maintenance, 07/28/23 10:17:00 EST, [facility] #[id number], Partial fill upon patient request if the prescription is for a schedule II opioid drug., 175.26, cm, 07/24/23 9:5... Start Date: 07/28/23 Stop Date: 09/06/23 Status: Ordered aspirin 81 mg oral delayed release tablet 81 mg, 1, tablet, By Mouth, Daily, Do not start aspirin until 06/16/2022, # 90 tablet, Refills 0, Tot. Refills 0, Maintenance, 02/07/23 12:28:00 EDT, Route to Pharmacy Electronically, [facility] #[id number], Partial fill upon patient request if t... [...] 08/17/23 7:00:00 EST, Route to Pharmacy Electronically, [facility] #[id number], Partial fill upon patient request if the [...] mmHg and/or heart rate is below 55 [id number], # 180 tablet, Refills 0, Tot. Refills 0, Maintenance, 02/07/23 12:29:00 EDT, Route to Pharmacy Electronically... Start Date: 02/07/23 Status: Ordered diclofenac 1% topical gel = 4 Gm, Topically, 4 times a day, PRN Pain , Moderate, # 100 Gm, 0 Refills, Maintenance, 08/15/23 11:37:00 EST, Gel, [facility] #[id number], Partial fill upon patient request if the prescriptionis for a schedule II opioid drug., 175, cm, ... Start Date: 08/15/23 Status: Ordered Farxiga 10 mg oral tablet 1 tablet = 10 mg, By Mouth, Daily, # 90 tablet, 0 Refills, Maintenance, 02/07/23 12:33:00 EDT, Tablet, [facility] #[id number], Partial fill upon patient request if the prescription is for a schedule II opioid drug., 175, cm, 02/07/23 12:05:00 EDT... Start Date: 02/07/23 Status: Ordered ferrous sulfate 325 mg oral enteric coated tablet 325 mg, 1, tablet, By Mouth, Daily, # 90 tablet, Refills 0, Tot. Refills 0, Maintenance, 02/07/23 12:36:00 EDT, Route to Pharmacy Electronically, [facility] #[id number], Partial fill upon patient request if the prescription is for a schedule II o... Start Date: 02/07/23 Status: Ordered finasteride 5 mg oral tablet 1 tablet = 5 mg, By Mouth, Daily, # 90 tablet, 0 Refills, Maintenance, 02/07/23 12:28:00 EDT, Tablet, [facility] #[id number], Partial fill upon patient request if the [...] 07/22/23 9:56:00 EST, Route to Pharmacy Electronically, [facility] #[id number], Partial fill upon patient request if the prescription is for a sche... Start Date: 07/22/23 Status: Ordered lactulose 10 gm/15 ml oral syrup See Instructions, PRN Other, Take 15 mL as needed for constipation, please maintain daily bowel movement, hold for excessive loose stool or diarrhea (more than 3 times a day)., # 480 mL, 0 Refills, Maintenance, 02/07/23 12:36:00 EDT, Syrup, [facility]... Start Date: 02/07/23 Status: Ordered Lipitor 80 mg oral tablet 1 tablet = 80 mg, By Mouth, Daily, # 90 tablet, 0 Refills, Maintenance, 02/07/23 12:28:00 EDT, Tablet, [facility] #[id number], 175, cm, 02/07/23 12:05:00 EDT, Height, 94, kg, 01/23/23 9:15:00 EDT, Dry Weight Start Date: 02/07/23 Status: Ordered midodrine 10 mg oral tablet 1 tablet = 10 mg, By Mouth, 3 times a day, To help maintain systolic blood pressure above 110-120 mmHg, # 90 tablet, 2 Refills, Maintenance, 02/07/23 12:33:00 EDT, Tablet, [facility] #[id number], Partial fill upon patient request if the [...] 02/07/23 12:29:00 EDT, Route to Pharmacy Electronically, [facility] #[id number],Partial fill upon patient request if the prescripti... [...] 0 Refills, Maintenance, 02/07/23 12:33:00 EDT, Tablet, [facility] #[id number], Partial fill upon patient request if the [...] February 2013. Urologist is Dr. Zafar [facility] ). Social History Social History Type Response Smoking Status Never (less than 100 in lifetime) entered on: 06/02/22 Sex Patient Care team information Care Team Personnel Name: Steff Puentes RN Position: [facility] RN Member Role: Primary Care Nurse Name: aKlyani Miller LPN Position: [facility] RN Member Role: Primary Care Nurse Name: Nadiya Coleman RN Position: [facility] RN Member Role: Primary Care Nurse Name: Tripp Machado RN Position: [facility] RN Member Role: Primary Care Nurse Name: Sobia Hilliard RN Position: [facility] RN Supv Member Role: Primary Care Nurse Name: Lupe Díaz RN Position: [facility] RN Member Role: Primary Care Nurse Name: Betsy Solano RN Position: [facility] RN Member Role: Primary Care Nurse Name: Lorraine Araujo RN Position: [facility] AMB Nurse Member Role: Primary Care Nurse Name: Adryan Rm RN Position: [facility] RN Member Role: Primary Care Nurse Name: Fely Gaspar Position: [facility] RN Member Role: Primary Care Nurse Name: Tonya Up RN Position: [facility] RN Member Role: Primary Care Nurse Name: Matheus Cleveland RN Position: [facility] RN Member Role: Primary Care Nurse Name: Karolina Barcenas RN Position: [facility] RN Member Role: Primary Care Nurse Name: Mercedes Maki Position: [facility] RN Member Role: Primary Care Nurse Name: Edna Horner RN Position: [facility] RN Member Role: Primary Care Nurse Name: Aguila Acevedo LPN Position: [facility] RN Member Role: Primary Care Nurse Name: Les Sahu MD Position: [facility] Renal MD Member Role: Lifetime Consulting Physician Address: Address: [address] [facility] [address] [facility], [place] [address]- Name: Nadia Lainez RN Position: S RN Member Role: Primary Care Nurse Name: Yohannes Watson RN Position: S RN Member Role: Primary Care Nurse Name: Omer Moreno MD Position: [facility] Renal MD Member Role: Lifetime Consulting Physician Address: Address: [address] [facility] [address]- Name: Staci Salgado LPN Position: S RN Member Role: Primary Care Nurse Name: Zo Vivar RN Position: S RN Member Role: Primary Care Nurse Name: Anh Batista RN Position: [facility] RN Member Role: Primary Care Nurse Name: Vita ROONEY, Maninder Saonn Position: Reference Physician Member Role: PCP Address: Address: [address] [place] [address]- Care Team Related Persons Name: DES WRIGHT Address: home [address] [place] [address] Name: GISELA WRIGHT Address: [place] [address] Name: SURI FLOYD Address: home [address] [place] [address]
--- OUTSIDE RECORDS SUMMARY | 2024-04-15 20:04 | XMS_ITS | Continuity of Care Document ---
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 Start Date: 02/07/23 Status: Ordered aspirin 81 mg oral delayed release tablet 81 mg, 1, tablet, By Mouth, Daily, Do not start aspirin until 06/16/2022, # 90 tablet, Refills 0, Tot. Refills 0, Maintenance, 02/07/23 12:28:00 EDT, Route to Pharmacy Electronically, [email or web address] #[id number], Partial fill upon patient request if t... [...] mmHg and/or heart rate is below 55 [id number], # 180 tablet, Refills 0, Tot. Refills 0, Maintenance, 02/07/23 12:29:00 EDT, Route to Pharmacy Electronically... Start Date: 02/07/23 Status: Ordered Farxiga 10 mg oral tablet 1 tablet = 10 mg, By Mouth, Daily, # 90 tablet, 0 Refills, Maintenance, 02/07/23 12:33:00 EDT, Tablet, [facility] #[id number], Partial fill upon patient request if the prescription is for a schedule II opioid drug., 175, cm, 02/07/23 12:05:00 EDT... Start Date: 02/07/23 Status: Ordered ferrous sulfate 325 mg oral enteric coated tablet 325 mg, 1, tablet, By Mouth, Daily, # 90 tablet, Refills 0, Tot. Refills 0, Maintenance, 02/07/23 12:36:00 EDT, Route to Pharmacy Electronically, [email or web address] #[id number], Partial fill upon patient request if the prescription is for a schedule II o... Start Date: 02/07/23 Status: Ordered finasteride 5 mg oral tablet 1 tablet = 5 mg, By Mouth, Daily, # 90 tablet, 0 Refills, Maintenance, 02/07/23 12:28:00 EDT, Tablet, [email or web address] #[id number], Partial fill upon patient request if the [...] 02/07/23 12:31:00 EDT, Route to Pharmacy Electronically, [email or web address] #[id number], Partial fill... Start Date: 02/07/23 Status: Ordered lidocaine 5% topical film 1 patch, Topically, Daily, Apply to back of the neck tender point, 12 hours on then 12 hours off., # 30 patch, 0 Refills, Maintenance, 02/07/23 12:30:00 EDT, Patch, [email or web address] #[id number], Partial fill upon patient request if the prescription is... Start Date: 02/07/23 Status: Ordered Lipitor 80 mg oral tablet 1 tablet = 80 mg, By Mouth, Daily, # 90 tablet, 0 Refills, Maintenance, 02/07/23 12:28:00 EDT, Tablet, [facility] #[id number], 175, cm, 02/07/23 12:05:00 EDT, Height, 94, kg, 01/23/23 9:15:00 EDT, Dry Weight Start Date: 02/07/23 Status: Ordered midodrine 10 mg oral tablet 1 tablet = 10 mg, By Mouth, 3 times a day, To help maintain systolic blood pressure above 110-120 mmHg, # 90 tablet, 2 Refills, Maintenance, 02/07/23 12:33:00 EDT, Tablet, [facility] #[id number], Partial fill upon patient request if the prescript... Start Date: 02/07/23 Status: Ordered Narcan 4 mg/0.1 mL nasal spray = 4 mg, Nares, Both, Once, PRN Other, To reverse opioid overdose, administer to each nostril, may repeat every 2 to 3 minutes until patient responds, call 911 in the meantime., # 2 each, 0 Refills, Soft Stop, 02/07/23 12:41:00 EDT, [email or web address]... Start Date: 02/07/23 Status: Ordered NovoLOG [...] 02/07/23 12:29:00 EDT, Route to Pharmacy Electronically, [facility] #[id number],Partial fill upon patient request if the prescripti... [...] 0 Refills, Maintenance, 02/07/23 12:33:00 EDT, Tablet, [facility] #[id number], Partial fill upon patient request if the [...] February 2013. Urologist is Dr. Zaf[facility] ). Social History Social History Type [...] Care Nurse Name: Lorraine Araujo RN Position: [facility] AMB Nurse Member Role: Primary Care Nurse Name: Adryan Rm RN Position: [facility] RN Member Role: Primary Care Nurse Name: Peg Trinidad RN Position: [facility] RN Member Role: Primary Care Nurse Name: Fely Gaspar Position: [facility] RN Member Role: Primary Care Nurse Name: Meli Luz LPN Position: [facility] RN Member Role: Primary Care Nurse Name: Matheus Cleveland RN Position: [facility] RN Member Role: Primary Care Nurse Name: Mercedes Maki Position: [facility] RN Member Role: Primary Care Nurse Name: Les Sahu MD Position: [facility] Renal MD Member Role: Lifetime Consulting Physician Address: Address: [address] [facility], [place] [address]- Name: Gabby Ma RN Position: [facility] SN RN Member Role: Primary Care Nurse Name: Huyen Griffin Position: [facility] RN Member Role: Primary Care Nurse Name: Zo Vivar RN Position: [facility] RN Member Role: Primary Care Nurse Name: Vita ROONEY, Maninder Sanon Position: Reference Physician Member Role: PCP Address: Address: [address] [place] [address]- Care Team Related Persons Name: DES WRIGHT Address: [address] [place] [address] Name: GISELA WRIGHT Address: home [place] [address]
--- OUTSIDE RECORDS SUMMARY | 2024-04-15 20:04 | XMS_ITS | Continuity of Care Document ---
Author Organization [facility] Address [address] [place] [id number] Care Team Providers Care Business Analyst Manager Name Role Phone Vita ROONEY, Maninder Sanon Primary Care Physic naomi Encounter [facility] Date(s): 07/13/23 - 07/24/[address] [address]- Encounter Diagnosis Generalized weakness(Final) - 07/11/23 Ascites(Final) - 07/11/23 Discharge Disposition: A-Transfer VNA/Home Health Attending Physician: Kitty Ac MD Admitting Physician: Deborah Diana MD Referring Physician: Not on Staff, Referring [...] FOR ANXIETY Start Date: 07/14/23 Status: Ordered aspirin 81 mg oral delayed release tablet 81 mg, 1, tablet, By Mouth, Daily, Do not start aspirin until 06/16/2022, # 90 tablet, Refills 0, Tot. Refills 0, Maintenance, 02/07/23 12:28:00 EDT, Route to Pharmacy Electronically, [facility] #[id number], Partial fill upon patient request if t... [...] EDT, Supply Start Date: 02/07/23 Status: Ordered ceftriaxone 2 gm injectable powder [...] mmHg and/or heart rate is below 55 [id number], # 180 tablet, Refills 0, Tot. Refills 0, Maintenance, 02/07/23 12:29:00 EDT, Route to Pharmacy Electronically... Start Date: 02/07/23 Status: Ordered Coreg 6.25 mg oral tablet 6.25 mg, Tablet, By Mouth, 07/24/23 9:00:00 EST Start Date: 07/24/23 Stop Date: 07/24/23 Status: Completed Farxiga 10 mg oral tablet 1 tablet = 10 mg, By Mouth, Daily, # 90 tablet, 0 Refills, Maintenance, 02/07/23 12:33:00 EDT, Tablet, [facility] #[id number], Partial fill upon patient request if the prescription is for a schedule II opioid drug., 175, cm, 02/07/23 12:05:00 EDT... Start Date: 02/07/23 Status: Ordered ferrous sulfate 325 mg oral enteric coated tablet 325 mg, 1, tablet, By Mouth, Daily, # 90 tablet, Refills 0, Tot. Refills 0, Maintenance, 02/07/23 12:36:00 EDT, Route to Pharmacy Electronically, [id number] #[id number], Partial fill upon patient request if the prescription is for a schedule II o... Start Date: 02/07/23 Status: Ordered finasteride 5 mg oral tablet 1 tablet = 5 mg, By Mouth, Daily, # 90 tablet, 0 Refills, Maintenance, 02/07/23 12:28:00 EDT, Tablet, [facility] #[id number], Partial fill upon patient request if the [...] 07/22/23 9:56:00 EST, Route to Pharmacy Electronically, [facility] #[id number], Partial fill upon patient request if the prescription is for a sche... Start Date: 07/22/23 Status: Ordered gabapentin 400 mg oral capsule 400 mg, Capsule, By Mouth, 07/24/23 9:00:00 EST Start Date: 07/24/23 Stop Date: 07/24/23 Status: Completed lactulose 10 gm/15 ml oral syrup See Instructions, PRN Other, Take 15 mL as needed for constipation, please maintain daily bowel movement, hold for excessive loose stool or diarrhea (more than 3 times a day)., # 480 mL, 0 Refills, Maintenance, 02/07/23 12:36:00 EDT, Syrup, [facility]... Start Date: 02/07/23 Status: Ordered Lipitor 80 mg oral tablet 1 tablet = 80 mg, By Mouth, Daily, # 90 tablet, 0 Refills, Maintenance, 02/07/23 12:28:00 EDT, Tablet, [facility] #[id number], 175, cm, 02/07/23 12:05:00 EDT, Height, 94, kg, 01/23/23 9:15:00 EDT, Dry Weight Start Date: 02/07/23 Status: Ordered midodrine 10 mg oral tablet 1 tablet = 10 mg, By Mouth, 3 times a day, To help maintain systolic blood pressure above 110-120 mmHg, # 90 tablet, 2 Refills, Maintenance, 02/07/23 12:33:00 EDT, Tablet, [facility] #[id number], Partial fill upon patient request if the [...] Dry Weight Start Date: 02/07/23 Status: Ordered penicillin G potassium 3,000,000 units/50 mL intravenous solution 50 mL = 3 million_units, IVPB, Every 6 hours, 0 Refills, Maintenance, 07/24/23 9:38:00 EST, Injection, Partial fill upon patient request if the prescription is for a schedule II opioid drug. Start Date: 07/24/23 Status: Ordered tamsulosin 0.4 mg oral capsule 0.4 mg, 1, capsule, By Mouth, Daily, (LAST FILLED 10/01/22), # 90 capsule, Refills 0, Tot. Refills 0, Maintenance, 02/07/23 12:29:00 EDT, Route to Pharmacy Electronically, [facility] #[id number],Partial fill upon patient request if the prescripti... [...] 0 Refills, Maintenance, 02/07/23 12:33:00 EDT, Tablet, [facility] #[id number], Partial fill upon patient request if the [...] February 2013. Urologist is Dr. Zafar Roa [facility] ). Results Orders for Microbiology Reports Name Date Blood Culture 07/20/23 Blood Culture #2 07/20/23 Blood Culture 07/18/23 Blood Culture #2 07/18/23 Blood Culture 07/16/23 Blood Culture #2 07/16/23 Blood Culture 07/14/23 Blood Culture #2 07/14/23 Anaerobic Culture (ANAEROBIC CULTURE) Sterile Body Fluid Culture W/ Gram Smear 07/13/23 Microbiology Reports (Most Recent Ten) TEST:Blood Culture STATUS:Unauthenticated BODY SITE: SOURCE:Blood COLLECTED DATE/TIME:07/20/23 11:04 AM Blood Culture SPECIMEN DESCRIPTION : BLOOD R SPECIAL REQUESTS : NONE CULTURE : NO GROWTH 4 DAYS REPORT STATUS : PRELIMINARY REPORT TEST:Blood Culture, Second Order STATUS:Unauthenticated BODY SITE: SOURCE:Blood COLLECTED DATE/TIME:07/20/23 11:04 AM Blood Culture, Second Order SPECIMEN DESCRIPTION : BLOOD L SPECIAL REQUESTS : NONE CULTURE : NO GROWTH 4 DAYS REPORT STATUS : PRELIMINARY REPORT TEST:Blood Culture STATUS:Auth (Verified) BODY SITE: SOURCE:Blood COLLECTED DATE/TIME:07/18/23 9:33 AM Blood Culture SPECIMEN DESCRIPTION : BLOOD R ARM SPECIAL REQUESTS : NONE CULTURE : NO GROWTH 5 DAYS. REPORT STATUS : FINAL 07/23/2023 TEST:Blood Culture, Second Order STATUS:Auth (Verified) BODY SITE: SOURCE:Blood COLLECTED DATE/TIME:07/18/23 9:33 AM Blood Culture, Second Order SPECIMEN DESCRIPTION : BLOOD L ARM SPECIAL REQUESTS : NONE CULTURE : NO GROWTH 5 DAYS. REPORT STATUS : FINAL 07/23/2023 TEST:Blood Culture STATUS:Auth (Verified) BODY SITE: SOURCE:Blood COLLECTED DATE/TIME:07/16/23 8:44 AM Blood Culture SPECIMEN DESCRIPTION : BLOOD NO SITE SPECIAL REQUESTS : CRITICAL VALUE CALLED AND VERIFIED BY READBACK FOR: POS [facility] BLDC TO [id number], D6, 1437, 07/17/2023, TECH 906 CULTURE : ENTEROCOCCUS FAECALIS This isolate was identified using Maldi-TOF system FOR SUSCEPTIBILITY RESULT REFER TO BLOOD CULTURE REPORT STATUS : FINAL 07/18/2023 TEST:Blood Culture, Second Order STATUS:Auth (Verified) BODY SITE: SOURCE:Blood COLLECTED DATE/TIME:07/16/23 8:44 AM Blood Culture, Second Order SPECIMEN DESCRIPTION : BLOOD SPECIAL REQUESTS : NONE CULTURE : NO GROWTH 5 DAYS. REPORT STATUS : FINAL 07/21/2023 TEST:Blood Culture STATUS:Auth (Verified) BODY SITE: SOURCE:Blood COLLECTED DATE/TIME:07/14/23 9:59 AM Blood Culture SPECIMEN DESCRIPTION : BLOOD SPECIAL REQUESTS : NONE CULTURE : NO GROWTH 5 DAYS. REPORT STATUS : FINAL 07/19/2023 TEST:Blood Culture, Second Order STATUS:Auth (Verified) BODY SITE: SOURCE:Blood COLLECTED DATE/TIME:07/14/23 9:59 AM Blood Culture, Second Order SPECIMEN DESCRIPTION : BLOOD SPECIAL REQUESTS : NONE CULTURE : NO GROWTH 5 DAYS. REPORT STATUS : FINAL 07/19/2023 TEST:Anaerobic Culture STATUS:Auth (Verified) BODY SITE: SOURCE:ASCITI COLLECTED DATE/TIME:07/13/23 3:00 PM Anaerobic Culture SPECIMEN DESCRIPTION : ASCITIC FLUID SPECIAL REQUESTS : NONE CULTURE : NO ANAEROBES ISOLATED REPORT STATUS : FINAL 07/18/2023 TEST:Sterile Fluid Culture STATUS:Auth (Verified) BODY SITE: SOURCE:ASCITI COLLECTED DATE/TIME:07/13/23 3:00 PM Sterile Fluid Culture SPECIMEN DESCRIPTION : ASCITIC FLUID SPECIAL REQUESTS : NONE GRAM STAIN : 1+ WHITE BLOOD CELLS NO ORGANISMS SEEN CULTURE : NO GROWTH 2 DAYS REPORT STATUS : FINAL 07/16/2023 Radiology Reports * Exam Date Time Procedure Performing Provider Status 07/17/23 3:[address] Heart/Coronary/3D/Morph Jamee Otero; Auth (Verified) Notes: (CT Heart/Coronary/3D/Morph) Reason For Exam: Other:;endocarditis RESULT: CT Heart/Coronary/3D/Morph PROCEDURE: CT Heart/Coronary/3D/Morph CLINICAL INDICATION: Male patient of age 78 years with Reason: Other:; Clinical Question(s): Other:; Infective endocarditis, unable to do LISANDRA; Order Comment:. severe aortic stenosis s/p TAVR May 2022, complete heart block s/p pacemaker May [address] angiogram protocol was used in order to minimize cardiac motion artifact. COMPARISON: 02/05/2022 TECHNIQUE: The region imaged was limited to the heart in order to optimize image quality and limit radiation dose. Automatic tube modulation based upon AP and lateral topogram attenuation was used to optimize exposure parameters. A [employer] [place] scanner with 16 cm wide detector was employed. Bolus tracking technique used for timing. Dual syringe injector used to deliver a total of 90 cc Omnipaque 350 and saline dilution/flush at 5 cc/s with [address] angiography was then performed using ECG-gated single heartbeat technique with imaging performed about diastole and persistently. Smart Phase scanner software used to assist in the selection of optimal reconstruction phase(s): 90% and 43%. Snapshot Freeze postprocessing used to minimize motion artifact. 3-D surface rendered and MIP images were obtained on a separate workstation and reviewed, including multiplanar and curved reconstructions. Diameter stenoses reported with terminology based upon the Coronary Artery Disea se Reporting and Data System (CAD-RADS 2.0), Radiology: Cardiothoracic Imaging 2021; 4 (5). Radiation dose parameters: CTDIvol Body: 11.81 mGy, DLP Body: 310 mGy*cm. MEDICATION: FINDINGS: Technical: The image quality is mildly degraded by metal artifact and cardiac motion. The contrast enhancementis good. At the time of coronary imaging, the instantaneous heart rate was 66 bpm. Visualized Portions of Extracardiac Structures: Thoracic aorta: No acute finding Pulmonary arteries: No acute finding. Lungs: No acute finding Mediastinum and harriet: No significant findings. Bones: No acute findings. Upper abdomen: There is ascites. Patient has known cirrhosis. Heart and Valves: Left Ventricle: Size and morphology appear normal. Right Ventricle: Size and morphology appear normal. Atria: Upper normal size left atrium. Normal size]. Valves: Status post TAVR. Along the left cusp there is low density thickening measuring up to 4 mm, suggesting fibrosis, less likely vegetation, although a small vegetation cannot be entirely excluded. Reference images were obtained on the [employer] workstation and saved to the hospital PACS. There is mild thickening of the mitral valve leaflets, probably degenerative. No definite vegetation. The tricuspid valve is obscured by pacemaker wires related artifact. No suspicious finding at the pulmonic valve. Assessment of the coronary arteries is very limited. There is a LAD stent. There is marked coronary artery calcification obscuring the lumen. IMPRESSION: Status post TAVR. Along the left cusp there is low density thickening measuring up to 4 mm, suggesting fibrosis, less likely vegetation, although a small vegetation cannot be entirely excluded. Ascites. WSN: [id number] Ordering Physician: Jory Weiss Dictated By: Lou Agrawal MD Dictated Date/Time: 07/18/23 12:32 p Reviewed By: Lou Agrawal MD Signed By: Lou Agrawal MD Signed Date/Time: 07/18/23 12:32 pm Transcribed By: CARLOS Transcribed Date/Time: 07/17/23 5:35 pm * Exam Date Time Procedure Performing Provider Status 07/15/23 2:40 PM MRI Cervical Spine W+W/O Contrast Carmen Muro; Auth (Verified) Notes: (MRI Cervical Spine W+W/O Contrast) Reason For Exam: Myelopathy RESULT: MRI Cervical Spine W+W/O Contrast MRI Cervical Spine W+W/O Contrast INDICATION: Reason: Myelopathy; Clinical Question(s): Disc Space Infection; Order Comment: Please see Reference Text for complete list of contraindications Disc Space Infection TECHNIQUE: MRI of the cervical spine was performed with and without intravenous contrast utilizing sagittal T1, sagittal T2, sagittal STIR, axial gradient echo, axial T1, and axial T2-weighted sequences, and post-contrast sagittal T1 and axial T1-weighted sequences. 18 mL of Clariscan was administered intravenously. COMPARISON: MRI cervical spine 01/26/2023. FINDINGS: LOCALIZER: Localizer includes large zkgsl-ta-dgct sagittal T2 weighted sequence through the entire spine. This demonstrates a normal complement of 7 cervical, 12 thoracic, and 5 lumbar-type vertebralbodies. A rudimentary disc space is noted at S1-S2. Thoracic alignment and vertebral body and disc morphology are preserved with no significant spinal stenosis. . In the lumbar spine, there is loss of disc space at L4-5 and L5-S1, with grade 1 anterolisthesis of L4 on L5. Susceptibility artifact related to posterior fusion hardware (interspinous spacer) is noted at L4-5. Central stenosis and neural foraminal narrowing, greatest at L4-5, was better assessed on dedicated MRI lumbar spine of 2022. ALIGNMENT, VERTEBRAE, MARROW, AND DISCS: There is mild reversal of the typical cervical lordosis, centered at C5-6 . Minimal retrolisthesis of C6 on C7 is noted. There is irregularity of the opposingendplates at C5-6 with mild loss of vertebral body height at these levels related to prior endplateerosion. There is trace edema and mild enhancement within the C5-6 disc space, significantly decreased since 01/26/2023. Previously seen edema in the vertebral bodies of C5 and C6 has improved, with mild fatty change in the opposing endplates now seen at this level. Remaining vertebral body heights are preserved. No other significant marrow signal abnormality is seen. Remaining intervertebral discs are maintained. POSTERIOR FOSSA AND CORD: There is focal cord compression at the level of C6-7, similar in configuration to the prior study. Subtle myelopathic cord signal abnormality is present at C6-7. There is also chronic myelopathic cord signal change in bilateral paracentral cord at C5-6 with owl eye configuration, as seen on the prior examination of 01/26/2023. There is no abnormal intramedullary enhancement. Mild smooth dural enhancement overlying the disc bulge C6-7 the spinal canal are noted, likely reactive, with significant improvement in previously seen epidural phlegmon at C5-6 is the prior examination. There is no evidence of epidural abscess. PARASPINAL TISSUES: Significant splenic megaly is noted on localizer sequence, measuring approximately 18.8 cm. Small volume ascites is also partially visualized. In the cervical soft tissues, there is trace prevertebral edema measuring up to 3 mm in thickness, extending from lower C3 through lowerC7, decreased from the study of 01/26/2023. Remaining cervical soft tissues are notable. Major cervical flow voids are preserved. Trace bilateral mastoid effusions are present. DETAILED FINDINGS BY LEVEL: C2-C3: Left greater than right facet hypertrophy is noted. There is a mild broad-based disc bulge and mild thickening of the ligamentum flavum, with minimal central stenosis, and mild left and no right neural foraminal narrowing. C3-C4: Broad-based disc bulge with bilateral facet hypertrophy. Mild central stenosis. No significant neural foraminal narrowing. C4-C5: Mild broad-based disc osteophyte complex with shallow central protrusion. Bilateral facet hypertrophy. Mild central stenosis. No significant neural foraminal narrowing. C5-C6: See above description of chronic sequelae of prior discitis osteomyelitis. Posterior osteophytic ridging is noted along with uncovertebral spurring. Moderate central stenosis is slightly improved from the prior study due to decrease in epidural phlegmon. Myelopathic cord signal changes againnoted at this level. There is minimal bilateral neural foraminal narrowing at this level. C6-C7: Central disc extrusion results in focal severe central stenosis with AP diameter of the thecal sac measuring 4 mm. Compression and subtle myelopathic cord signal abnormality, similar to prior.No significant neural foraminal narrowing. C7-T1: Mild disc osteophyte complex, greatest laterally. No significant central stenosis. Mild right and no significant left neural foraminal narrowing . IMPRESSION: 1. Chronic bony erosion in the opposing endplates at C5-6, with interval decrease in edema/fluid atthis site, consistent with chronic sequelae of prior discitis/osteomyelitis. Slight improvement in moderate central stenosis at this level due to decreased epidural phlegmon, with persistent chronic myelopathic cord signal change at this level. 2. Central disc extrusion at C6-7 results in focal severe spinal stenosis with cord compression andsubtle myelopathic cord signal abnormality, fairly similar to prior. WSN: [id number] Ordering Physician: Kyree Jo Dictated By: Zo Nation MD Dictated Date/Time: 07/15/23 3:29 pm Reviewed By: Zo Nation MD Signed By: Zo Nation MD Signed Date/Time: 07/15/23 3:29 pm Transcribed By: CARLOS Transcribed Date/Time: 07/15/23 2:59 pm * Exam Date Time Procedure Performing Provider Status 07/14/23 3:36 PM Knee 3 Views Left Lalo Leiva; Au th (Verified) Notes: (Knee 3 Views Left) Reason For Exam: Pain RESULT: Knee 3 Views Left Knee 3 Views Left Reason: Pain; Clinical Question(s): Osteomyelitis COMPARISON: None. FINDINGS: There is no evidence of acute or healing fracture, dislocation or bone lesion. 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 No evidence of joint effusion. 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 No specific findings of osteomyelitis. WSN: [id number] Ordering Physician: Kitty Ac Dictated By: Gigi Lepe MD Dictated Date/Time: 07/14/23 6:40 pm Reviewed By: Gigi Lepe MD Signed By: Gigi Lepe MD Signed Date/Time: 07/14/23 6:40 pm Transcribed By: CARLOS Transcribed Date/Time: 07/14/23 6:37 pm * Exam Date Time Procedure Performing Provider Status 07/13/23 2:36 PM IR End of Case Report Au th (Verified) IR End of Case Report * Exam Date Time Procedure Performing Provider Status 07/13/23 2:36 PM US Guide Abdomen Par acentesis w/Imaging Nathanael Mishra (Verified) Notes: (US Guide Abdomen Paracentesis w/Imaging) Reason For Exam: ascites US Guide Abdomen Paracentesis w/Imaging Patient: GILLES WRIGHT Study Date: 07/13/2023 Performing: Laura Garcia PA-C Referring: : 1945 Age: 78 Gender: MALE PROCEDURE: US Guided Paracentesis INDICATION: Ascites, abdominal distension. Diagnostic and therapeutic. 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 Informed consent was obtained. A suitable access site in the right lower abdominal wall was identified, marked, prepped and draped in standard sterile fashion. 1% lidocaine was administered for local anesthesia. A 5 Vietnamese catheter was advanced into the peritoneal cavity. A post paracentesis scan was obtained. The catheter was removed and hemostasis obtained using manual compression. COMPLICATIONS: The patient tolerated the procedure well and left the department in stable condition. There were no immediate complications. FINDINGS: There is a small amount of abdominal ascites. An ultrasound guided paracentesis was successfully performed as described above. The post paracentesis scan demonstrates no significant residual abdominal ascites. PLAN: Routine post procedure monitoring. IMPRESSION: Successful ultrasound guided paracentesis with evacuation of 800 ml of clear yellow ascites. Signed By Laura Garcia PA-C On 07/14/2023 07:58:05 Signed By Laura Garcia PA-C On 07/14/2023 07:58:05 Laura Garcia PA-C Equipment : Zachery GARCÍA 19 X 10 Dictated By: Laura Phillips Dictated Date/Time: 07/13/23 2:36 pm Reviewed By: Laura Phillips Signed By: Laura Phillips Signed Date/Time: 07/13/23 2:36 pm Transcribed By: CASSIE Transcribed Date/Time: 07/13/23 2:36 pm * Exam Date Time Procedure Performing Provider Status 07/12/23 1:37 PM MRI Lumbar Spine W+W/O Contrast Carmen Linda; Auth (Verified) Notes: (MRI Lumbar Spine W+W/O Contrast) Reason For Exam: urinary incontinence, L lower extremity weakness;Cauda Equina Syndrome RESULT: MRI Lumbar Spine W+W/O Contrast MRI Lumbar Spine W+W/O Contrast INDICATION: Cauda equina syndrome. Urinary incontinence. Left lower extremity weakness. TECHNIQUE: MRI of the lumbar spine was performed with and without intravenous contrast utilizing sagittal T1, sagittal T2, sagittal STIR, axial T1, and fat- saturated axial T2-weighted sequences, and post-contrast sagittal T1 and fat- saturated axial T1-weighted sequences. 18 mL of Clariscan was administered intravenously. COMPARISON: CT abdomen pelvis, 07/11/2023. Cervical spine MRI, 01/26/2023 per FINDINGS: LOCALIZER: On the localizer sequence there is erosion of the C5-6 endplates with slight kyphosis atthis level. This has progressed from 01/26/2023. Associated small prevertebral fluid is seen measuring up to about 5 mm in thickness. There is a suspected disc extrusion at C6-7 extending both superiorly and inferiorly, as well as posterior ligamentous buckling resulting in severe canal stenosis and cord compression. Probable myelopathic signal abnormality. The degree of cord compression is similar to 01/26/2023. Curvature and alignment in the thoracic spine is normal. There are no findings to suggest infectionin the thoracic spine. NUMBERING: The study assumes 5 [id number]-[id number] lumbar type vertebral bodies. ALIGNMENT, VERTEBRAE, MARROW, AND DISCS: There is a 3 mm anterolisthesis of L4 on L5 and trace retrolisthesis of L5 on S1. Vertebral body heights are preserved. There is diffuse disc desiccation withmild disc space narrowing at L4-5 and moderate narrowing at L5-S1 with vacuum phenomenon at the latter level. No abnormal signal or enhancement is seen within the disc spaces or endplates to suggest discitis/osteomyelitis. A small benign T1 bright hemangioma is seen in the L3 vertebral body. There is a susceptibility artifact between the L4-5 spinous processes related to interspinous spacer. CONUS: The conus is normal in signal and contour, with normal level of termination at L1-2. There is no abnormal enhancement. PARASPINAL TISSUES: On the localizer sequence the spleen is noted to be significantly enlarged measuring 19.5 cm in craniocaudal dimension. There is ascites. Small left renal cyst is noted. DETAILED FINDINGS BY LEVEL: L1-L2: No significant canal stenosis or neural foraminal narrowing. L2-L3: There is minimal disc bulging and posterior ligamentous thickening without significant canalstenosis. There is minimal bilateral neural foraminal stenosis. L3-L4: There is minimal disc bulging, posterior ligamentous thickening, and mild facet spurring causing mild canal stenosis. There is mild bilateral neural foraminal stenosis. L4-L5: There is diffuse disc bulging/uncovering of disc due to anterolisthesis. Assessment of the spinal canal is limited due to artifact from the metallic interspinous spacer. There is probably mildto moderate canal stenosis as well as moderate bilateral neural foraminal stenosis. L5-S1: There is disc osteophyte as well as bilateral facet spurring causing mild canal stenosis. There is probably compression of the descending left S1 nerve root in the subarticular recess. There is also severe bilateral neural foraminal stenosis with potential compression of both exiting L5 nerve roots. IMPRESSION: 1. No evidence of infection in the lumbar spine. 2. Degenerative changes are seen as described with probably mild to moderate canal stenosis at L4-5. There is also probable compression of the descending left S1 nerve root in the subarticular recessat L5-S1 as well as severe bilateral neural foraminal stenosis at this level with potential compression of both exiting L5 nerve roots. 3. There are persistent findings of discitis/osteomyelitis at C5-6. Suspected central disc extrusion at C6-7 is seen extending both superiorly and inferiorly with posterior ligamentous buckling resulting in severe canal stenosis and cord compression with probable myelopathic signal abnormality. Thedegree of cord compression is similar to MRI from 01/26/2023. Prevertebral fluid is seen measuring 5mm in thickness. This could be further assessed with dedicated MRI of the cervical spine if clinically indicated. 4. Ascites and splenomegaly suggesting portal hypertension. WSN: [id number] Ordering Physician: Chao [place] Dictated By: Brenda Paredes MD Dictated Date/Time: 07/12/23 2:27 pm Reviewed By: Brenda Paredes MD Signed By: Brenda Paredes MD Signed Date/Time: 07/12/23 2:27 pm Transcribed By: CARLOS Transcribed Date/Time: 07/12/23 1:56 pm * Exam Date Time Procedure Performing Provider Status 07/11/23 7:[address] Abd/Pelvis W/ IV Contrast Only Christiana Selby; Charlene (Verified) Notes: (CT Abd/Pelvis W/ IV Contrast Only) Reason For Exam: RLQ abdominal pain;Other: RESULT: CT Abd/Pelvis W/ IV Contrast Only CT Abd/Pelvis W/ IV Contrast Only Hx of Present Illness: from home, c o odorours urine and new incontinence and R flank pain, per EMSthis is his 5th ems call in the last several days, hx of ascitis and c o of swollen abd, has had paracentisis in the past; Reason: Other:; RLQ abdominal pain; Clinical Question(s): Appendicitis; Order Comment: Patient unable to tolerate PO contrast. TECHNIQUE: Spiral CT through the abdomen and pelvis with IV contrast formatted in 3 planes. 100 cc of Omnipaque 300 was administered intravenously. This study was performed without oral contrast. Weight-based protocol using automatic tube modulation was used to optimize exposure parameters. CTDIvol Body: 22.17 mGy, DLP Body: 1356 mGy*cm. COMPARISON: 02/05/2023 FINDINGS: [place] Folder View Findings, Lines and Tubes: None. Visualized Chest: Small pleural effusions and adjacent atelectasis. Diaphragm: Normal. Liver: Nodular contour suggesting cirrhosis. Gallbladder: Numerous calcified gallstones in the gallbladder. Bile ducts: No biliary ductal dilation. Spleen: Hypodense area noted in the spleen posteriorly likely also present on the 02/05/2023 exam. Spleen appears enlarged. Pancreas: Normal. Adrenal glands: Normal. Kidneys and ureters: No hydronephrosis, stones, or suspicious masses. Bladder: Distended bladder. Reproductive organs: Unremarkable. Stomach, small bowel, and large bowel: Normal. Appendix: Normal. Peritoneum and retroperitoneum: Small amount of ascites. No omental or mesenteric lesions. Lymph nodes: No enlarged lymph nodes. Blood vessels: Normal. No aneurysm. No evidence of venous thrombosis. Abdominal and pelvic wall: Unremarkable. Bones: No acute abnormality. IMPRESSION: Distended bladder. No definite acute abnormality. Findings consistent with cirrhosis and mild ascites. Splenomegaly. No other acute abnormality identified. WSN: [id number] Ordering Physician: Brian Barnes Dictated By: Gigi Lepe MD Dictated Date/Time: 07/11/23 8:00 pm Reviewed By: Gigi Lepe MD Signed By: Gigi Lepe MD Signed Date/Time: 07/11/23 8:00 pm Transcribed By: CARLOS Transcribed Date/Time: 07/11/23 7:54 pm * Exam Date Time Procedure Performing Provider Status 07/11/23 7:02 PM Chest 2 Views Frontal and Lat Charo [place]; Auth (Verified) Notes: (Chest 2 Views Frontal and Lat) Reason For Exam: Shortness of Breath RESULT: Chest 2 Views Frontal and Lat Chest 2 Views Frontal and Lat Hx of Present Illness: from home, c o odorous urine and new incontinence and R flank pain, per EMS this is his 5th ems call in the last several days, hx of ascites and c o of swollen abd, has had paracentesis in the past; Reason: Shortness of Breath; Clinical Question(s): CHF COMPARISON: 02/04/2023 FINDINGS: LINES AND TUBES: Dual-lead left subclavian pacer/AICD wires are intact. LUNGS AND PLEURA: Central vascular engorgement and hazy opacities bilaterally. HEART, MEDIASTINUM AND HARRIET: Status post TAVR. BONES AND SOFT TISSUES: No acute abnormality. IMPRESSION: Mild pulmonary edema is suspected. WSN: [id number] Ordering Physician: Brian Barnes Dictated By: Hernan Marquez MD Dictated Date/Time: 07/11/23 7:13 pm Reviewed By: Hernan Marquez MD Signed By: Hernan Marquez MD Signed Date/Time: 07/11/23 7:13 pm Transcribed By: CARLOS Transcribed Date/Time: 07/11/23 7:08 pm Vital Signs Most recent to oldest [Reference Range]: 1 2 3 Height 175.26 cm (07/24/23 9:59 AM) 175.26 cm (07/23/23 3:59 PM) 175.26 cm (07/23/23 8:05 AM) Weight 87.5 kg (07/21/23 3:32 PM) 88.8 kg (07/20/23 2:37 PM) 87.8 kg (07/18/23 7:05 PM) Oxygen Saturation [94-100 %] 96 % (07/24/23 9:59 AM) 97 % (07/24/23 7:00 AM) 97 % (07/23/23 7:00 PM) Pulse Rate [55-90 bpm] 67 bpm (07/24/23 9:59 AM) 62 bpm (07/24/23 8:06 AM) 62 bpm (07/24/23 7:00 AM) Body Mass Index [18.5-24.99 kg/m2] 28.91 kg/m2 *H* (07/20/23 2:37 PM) Blood Pressure [90-138/55-84 mm Hg] 118/92mm Hg (07/24/23 9:59 AM) 129/58mm Hg (07/24/23 8:06 AM) 129/58mm Hg (07/24/23 7:00 AM) Respiratory Rate [16-30 br/min] 18 br/min (07/24/23 9:59 AM) 18 br/min (07/24/23 9:05 AM) 18 br/min (07/24/23 8:05 AM) Temperature [96.8-100.4 DegF] 97.8 DegF (07/24/23 9:59 AM) 99.3 DegF (07/24/23 7:00 AM) 97.6 DegF (07/23/23 7:00 PM) Liters per Minute 2 L/min (07/13/23 8:12 PM) 2 L/min (07/13/23 8:00 AM) 2 L/min (07/13/23 7:44 AM) Mode of Delivery (Oxygen) Room air (07/24/23 9:59 AM) Room air (07/24/23 7:00 AM) Room air (07/23/23 7:00 PM) Blood pressure sites Arm, left (07/24/23 9:59 AM) Arm, left (07/24/23 7:00 AM) Arm, left (07/23/23 7:00 PM) Temperature Route Temporal (07/24/23 9:59 AM) Oral (07/24/23 7:00 AM) Oral (07/23/23 7:00 PM) Weight Obtained Via Bed scale (07/20/23 2:37 PM) Bed scale (07/16/23 5:02 AM) Bed scale (07/13/23 8:00 AM) Social History Social History Type Response Smoking Status Never (less than 100 in lifetime) entered on: 06/02/22 Sex Note * Anh Batista RN: PERFORM Event Display: Discharge/Transfer Note Hospital Authored Date: [id number] Nursing Discharge Note Entered On: 07/24/2023 9:57 EST Performed On: 07/24/2023 9:57 EST by Anh Batista RN Nursing Discharge Note 2 Discharge Time : 07/24/2023 12:04 EST Anh Batista RN - 07/24/2023 15:17 EST Discharge Level of Care at Discharge : Homehealth/VNA Discharge VNA/Hospice/Home Care(v001) : [facility] [phone] Discharge Medical Equip Companies(v001) : [employer] [facility] [phone] Patient Left Unit Via : Wheelchair Patient Accompanied Off Unit with : Responsible adult DC Instructions Provided & Signed by Pt : Yes Patient Understands D/C Instructions : Yes Patient Instructions Discharge Signed : Yes Did Pt have Specialty Bed or Wound Vac : No Anh Batista RN - 07/24/2023 9:57 EST * Royal ROONEY, Soo: MODIFY, MODIFY, MODIFY, PERFORM, MODIFY, MODIFY Event Display: Discharge/Transfer Note Hospital Authored Date: [id number] Patient: ??GILLES WRIGHT ? Age:??78 Years?Sex:??Male?:??1945?? Patient Information Discharge Location: [facility] Primary Care Physician: Vita ROONEY, Maninder Sanon Admit Date/Time: 07/13/23 15:55 Discharge Disposition Discharge Disposition: Home with Home Health Discharge Diagnosis Primary Diagnosis: Generalized weakness (R53.1) Lower Extremity Weakness L>R Urinary Incontinence ? 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5 mg oral tablet)?TAKE 1 TABLET BY MOUTH TWICE DAILY NEEDED FOR ANXIETY Aspirin (aspirin 81 mg oral delayed release tablet)?81?Milligram?1?tablet?By Mouth?Daily?Do not start aspirin until 06/16/2022 Atorvastatin (Lipitor 80 mg oral tablet)?1?tab(s)?80?Milligram?By Mouth?Daily Bethanechol (bethanechol 25 mg oral tablet)?25?Milligram?1?tablet?By Mouth?2 times a day Carvedilol (Coreg 6.25 mg oral tablet)?6.25?Milligram?1?tablet?By Mouth?2 times aday?Hold if systolic blood pressure is below 120 mmHg and/or heart rate is below 55 [id number] Ceftriaxone (ceftriaxone 2 gm injectable powder for injection)?2?gram?IVPB?Every 12 hours Clopidogrel (clopidogrel 75 mg oral tablet)?75?Milligram?1?tablet?By Mouth?Daily dapagliflozin (Farxiga 10 mg oral tablet)?1?tab(s)?10?Milligram?By Mouth?Daily dulaglutide (Trulicity Pen 0.75 mg/0.5 mL subcutaneous solution)?0.5?Milliliter?0.75?Milligram?Subcutaneous Injection?Every week?EVERY THURSDAY Durable Medical Equipment (Blood Pressure Monitor)?See Instructions?Blood pressure cuffICD: I10 Ezetimibe (Zetia 10 mg oral tablet)?1?tab(s)?10?Milligram?By Mouth?Daily Ferrous Sulfate (ferrous sulfate 325 mg oral enteric coated tablet)?325?Milligram?1?tablet?By Mouth?Daily Finasteride (finasteride 5 mg oral tablet)?1?tab(s)?5?Milligram?By Mouth?Daily Folic Acid (folic acid 0.8 mg oral tablet)?TAKE 1 TABLET BY MOUTH EVERY DAY Gabapentin (gabapentin 300 mg oral capsule)?300?Milligram?1?capsule?By Mouth?2 times a day Insulin Aspart (NovoLOG FlexTouch)?See Instructions?2-25 units Subcutaneous Injection 3 timesa day before meals and bedtime insulin degludec (Tresiba FlexTouch 200 units/mL subcutaneous solution)?INJECT 60 UNITS UNDER THE SKIN AT BEDTIME Lactulose (lactulose 10 gm/15 ml oral syrup)?See Instructions?as needed?Other?Take 15 mL as needed for constipation, please maintain daily bowel movement, hold for excessive loose stool or diarrhea (more than 3 times a day). Midodrine (midodrine 10 mg oral tablet)?1?tab(s)?10?Milligram?By Mouth?3 times a day?To help maintain systolic blood pressure above 110-120 mmHg Pantoprazole (pantoprazole 40 mg oral delayed release tablet)?1?tab(s)?40?Milligram?By Mouth?Daily penicillin G potassium (penicillin G potassium 3,000,000 units/50 mL intravenous solution)?50?Milliliter?3?million_units?IVPB?Every 6 hours Tamsulosin (tamsulosin 0.4 mg oral capsule)?0.4?Milligram?1?capsule?By Mouth?Daily?(LAST FILLED 10/01/22) ? Medications Started Ceftriaxone (ceftriaxone 2 gm injectable powder for injection)?2?gram?IVPB?Every 12 hours penicillin G potassium (penicillin G potassium 3,000,000 units/50 mL intravenous solution)?50?Milliliter?3?million_units?IVPB?Every 6 hours Medications Discontinued Furosemide - Only held for 2 days due to EMMANUEL - RESTART ON FRIDAY 07/27 Spironolactone - only held for 2 days due to EMMANUEL - RESTART ON FRIDAY 07/27 Doses Changed Gabapentin (gabapentin 300 mg oral capsule)?300?Milligram?1?capsule?By Mouth?2 times a day Allergies Allergies ?(Active and Proposed Allergies Only) TiZANidine Hydrochloride? (Severity: Unknown severity, Onset: Unknown) ?Reactions: hallucination pregabalin? (Severity: Unknown severity, Onset: Unknown) ?Reactions: hallucination lisinopril? (Severity: Unknown severity, Onset: Unknown) ?Reactions: throat swelling ?Comments: throat swelling Latex? (Severity: Unknown severity, Onset: Unknown) ?Reactions: Rash ? Future Appointments Thursday 10:20 AM EST ?? With: Harper ROONEY, Cole Culp Where: [facility] Infectious Disease [address] [place] [id number]- Status: Pending Hospital Course Gilles is an 78-year-old patient with decompensated cirrhosis with known ascites and esophageal varices,??severe aortic stenosis status post TAVR, complete heart block status post pacemaker,??lumbarfusion hardware placed 5 years prior who was admitted??prior in January with generalized weakness and neck pain found to have strep bacteremia??and epidural abscess with C5-C6 osteomyelitis treated with??6 weeks of Ceftriaxone and a repeat nuclear medicine tagged white blood cell scan was completed as an outpatient??with no foci of infection.??He presented now to the hospital with a few days of generalized weakness and inability to walk for few days with significant lower extremity weakness as wellas bladder incontinence found to have enterococcal faecalis bacteremia with unclear source, startedon??Ampicillin with significant improvement in his??symptoms.??Repeat blood cultures from 07/14 negative for growth however blood cultures collected on 07/16 showing positive for gram- positive cocci. TTE negative for vegetations; however, patient underwent??cardiac CT??which revealed vegetations. Ceftriaxone is being added to the patient's antibiotic regimen. Cardiology and cardiac surgery??have been consulted, discussed with infectious disease, surgical team,??patient's family??that in view of??negative blood cultures currently??and??need for??continuation of chronic??suppressive??antibiotic therapy??regardless of??pacemaker extraction??it is reasonable??to wait??currently.?? If blood cultures continue to stay negative??on antibiotic therapy??will avoid??additional invasive procedures. Ifpatient has positive blood cultures in future??please call cardiology back.??Cardiology will have to revisit??transvenous pacemaker removal??and leadless pacemaker insertion at that time. For the time being, patient will continue on??penicillin and ceftriaxone??for 6 weeks starting??07/18. ??He??hada slight kidney injury, which is likely??prerenal in nature, and thus his??urine lactone and furosemide were held, with improvement in his Cr??back to baseline on 07/22.??His hemoglobin dropped below 7 on 2 separate occasions and he has received a total of??1.5 units??of blood over the past 48 hours, however repeat Hgb 07/22 is stable with an Hgb of 7.9. His cultures from 07/18 have remained negative. He got a PICC line placed on 07/21 for IV antibiotics upon DC. ?? Lower Extremity Weakness L>R Urinary Incontinence Lumbar Stenosis Enterococcal faecalis bacteremia Infective endocarditis H/O Streptococcus bacteremia and epidural abscess with C5-C6 osteomyelitis in 01/2023 Presented with LE weakness, L worse than R, RUQ pain with increased abdominal distension, and urinary incontinence for the last few days. Of note, does have mild??LE weakness at baseline. BCx positive for Enterococcus faecalis on 07/12; given one dose of Vancomycin on 07/13 and started on Ampicillin ?? Diagnostic para negative for SBP, CTAP unremarkable, MRI lumbar spine no evidence of infection but??has degenerative lumbar spine stenosis. MRI cervical spine with??chronic sequelae of prior discitis/osteomyelitis and central disc extrusion at C6-7 results in focal severe spinal stenosis with cord compression, but??fairly similar to prior. TTE??without??evidence of gross vegetations, LISANDRA unable to be obtained due to history of varices,??but cardiac CT is positive for vegetations ?? BCx 07/14 negative, however BCx 07/16 Repeat blood cultures obtained??positive for Enterococcus faecalis, thus ceftriaxone added to regimen. ?? Patient is feeling much improved since starting abxs and is no longer having LE weakness or urinaryincontinence. ?? Recommendations: - Cardiology ([place])??consulted for consideration of??replacement of??pacemaker along with CT surg in setting of infective endocarditis - As of 07/19: Cardiology's plan is as follows: No clear??evidence of infection??of the pacemaker onCT scan. Cardiothoracic surgery??feels??TAVR valve is likely not infected??and in view of??high risk surgery recommend??conservative management with regards to TAVR valve. Discussed with infectious disease, surgical team,??patient's family??that in view of??negative blood cultures currently??and??need for??continuation of chronic??suppressive??antibiotic therapy??regardless of??pacemaker extractio n??it is reasonable??to wait??currently.?? If blood cultures continue to stay negative??on antibiotic therapy??will avoid??additional invasive procedures. If patient has positive blood cultures in future??please call cardiology back.??Cardiology will have to revisit??transvenous pacemaker removal??and leadless pacemaker insertion at that time. - Continue 18 million units in 24 hours via CAD pump, Ceftriaxone 2g IV q12hrs (11/3/23). Patient had a PICC line placed on 07/22. He need 6 weeks of antibiotics starting 07/18, so end date would be Sep 04 - Seen by PT, recommending home w/ services ? Decompensated liver cirrhosis 2/2 history of alcohol use disorder Esophageal varices Ascites Thrombocytopenia Diagnosed with cirrhosis in 2013, history of??heavy alcohol use but has sober since 2013. Follows with??Dr. Burns ([place]); undergoes regular HCC screening as well as variceal screening. Last underwent EGD about a year ago (?2021)??where he was noted to have varices which needed banding with plan to repeat in 01/2023- was admitted here for osteomyelitis/bacteremia as above, unable to make apt. Seen by our GI team back in January for consideration of??EGD for esophageal variceal screen prior to LISANDRA to assess for??endocarditis- GI had recommended??esophageal variceal screening AFTER LISANDRA; neitherended up happening- felt patient was too high of a risk. No known history of hepatic encephalopathy but is prescribed Lactulose per home medication list- does not take this medication??at home. Given ascites was placed/discharged on??Lasix and Spironolactone during last hospitalization in 01/2023,??reports he is compliant with these medications. Is on home Carvedilol for cardiac indications but also for variceal bleed ppx. S/p paracentesis on 07/12- negative for SBP. Having regular bowel movements 1-2 a day, not on Lactulose. No signs or??concerns of hepatic encephalopathy.? Recommendations: - Holding home spironolactone and Lasix??due to EMMANUEL as below. Restart in 2 days - Continue home Coreg 6.25mg PO BID - FU with GI outpatient, overdue for EGD to screen for varices ? EMMANUEL on CKD Stage 3 - Resolved Baseline Cr 1.3, eGFR of 45. Creatinine of 1.6 on 07/13, meets definition for EMMANUEL. Up to a high of 1.7 on 07/15, up trended to??1.8 EMMANUEL could be in the setting of infection/dehydration.?? He has not been hemodynamically unstable, however he is on multiple medications that would worsen his dehydration??such as spironolactone and furosemide. FeNa confirming prerenal EMMANUEL Recommendations: - Encourage PO fluid intake, low Na diet - Hold spironolactone and furosemide, restart Friday 07/27 ? Acute on Chronic Normocytic Anemia - Stable History of Iron Deficiency Anemia Anemia of Chronic Disease Hgb baseline seems to be around 7, dropped to 6.8 on 07/20, received 2.5 units of blood. ??Patient does not have any source of bleeding and this is likely due to multiple drug blood draws in the setting of being acutely ill and hospitalized. ??Hgb dropped again??07/21 to 6.6, received 1 unit of blood. Hemolysis labs negative. Hgb stable at 7.9 on 07/22 Recommendations: ??? Follow up with PCP outpatient ?? Chronic Medical Conditions: - Severe aortic stenosis s/p TAVR / Complete heart block??s/p pacemaker / CAD/ HTN / HLD: Continue home ASA, Carvedilol, Farxiga, Atorvastatin; resumed Plavix on 07/16 - BPH / H/O Prostate Cancer s/p Radiation and Hormonal Therapy in : Continue home Finasteride, Bethanechol, Tamsulosin - Chronic pain: Continue home Gabapentin, (dose decreased to 300mg BID given CKD),??PRN Tylenol notto exceed >2g/24hrs; avoid NSAIDs - H/O hypotension: Patient is prescribed Midodrine for SBP below 120, however, says he takes it every day. SBP has been w/in appropriate range-??have been holding home Midodrine for now but per patient request ordered Midodrine 10mg PO TID PRN for SBP <110 (feels unwell when BP is below this) - GERD: Continue home Pantoprazole - ANUJA: Continue CPAP at home - T2DM: Is prescribed Aspartate ISS??2-25U TID before meals and Tresiba 60U daily at bedtime, Is also on Farxiga given h/o CAD. Note: Patient has been receiving 10U of Tresiba here inpatient and his glucose has been well controlled. Dose needs to be clarified with PCP to confirm no hypoglycemic ankur ures are occuring. Objective Vital Signs?? Temperature: 99.3 DegF (07/24/23 07:00:00) Temperature Route: Oral (07/24/23 07:00:00) Pulse Rate: 62 bpm (07/24/23 08:06:00) Respiratory Rate: 18 br/min (07/24/23 08:05:00) Systolic Blood Pressure: 129 mm Hg (07/24/23 08:06:00) Diastolic Blood Pressure: 58 mm Hg (07/24/23 08:06:00) Blood pressure sites: Arm, left (07/24/23 07:00:00) Mean Arterial Pressure: 77 mm Hg (07/23/23 15:59:00) Pulse Pressure: 71 mm Hg (07/24/23 07:00:00) Oxygen Saturation: 97 % (07/24/23 07:00:00) Mode of Delivery (Oxygen): Room air (07/24/23 07:00:00) Early Warning Score: 0 (07/24/23 08:09:56) ? . Physical Exam General:??No acute distress Respiratory:??Clear to auscultation bilaterally, no increased work of breathing Cardiovascular:??Normal rate, regular rhythm Abdomen:??No tenderness Neurologic:??Alert & Oriented Psychiatric:??Normal mood/affect Consultants Husam ROONEY, Александр Reilly - Infectious??Disease Harper ROONEY, Cole Culp - Infectious Disease Bob ROONEY, Adonay - Cardiology Patient Education Titles Discharge Instructions: Caring for Your Peripherally Inserted Central Catheter (PICC)?? Peripherally Inserted Central Catheter (PICC)?? Bacteremia, Suspected (Adult)?? Follow-Up Appointments Added Follow Up ?Time Frame ?Comments Vita ROONEY, Maninder Sanon?1 to 2 weeks Patient Instructions You had a mild kidney injury during your hospital stay, which was likely due to dehydration from not drinking enough fluids and also being on medicattions that would make you even more dehydrated, like the lasix and spironolactone. We held these two medications, and your kidney function is back to your normal. Please do not take them for the next two days, try to drink enough fluids, and then restart both of them again on Friday 07/27. ?? Your home dose of Tresiba is 60U however you have only been receiving 10U here in the hospital and your sugar levels have been well controlled. Please make sure to book an appointment with your primary care provider to discuss the most appropriate dose for you. Post Discharge Care Diet: ??Cardiac diet ?? Activity: ??As tolerated ?? Code Status: ??Full Resuscitation ?? Home Health Face to Face *Denotes mandatory kramer ?? *I certify that this patient is under my care and that I or an allowed non- physician working with me had a face to face encounter with the patient on this date:??07/24/2023 09:22 ?? *The encounter with the patient was in whole, or in part, for the following medical condition, which is the primary diagnosis(es) for home health care: Bacteremia (R78.81) ? *Select the indications for the discipline/s that are being arranged for this patient. Nursing (select all that apply): [_] None [x] Medication management (reconciliation, teaching)?? [_] Chronic disease management?? [_] Wound care and treatment?? [_] Home safety evaluation [_] Administer SQ/IM/IV medications?? [_] Cath care?? [_] Drain care?? [_] Trach or GT care?? Other _ Occupation Therapy (select all that apply): [_] None [_] ADL Management [_] Fall prevention training [_] Energy conservation [_] Cognitive training Other _ Physical Therapy (select all that apply): [_] None [_] Functional mobility training [_] Home exercise program to strengthen [_] Increase ROM?? [_] Falls prevention training [_] Home maintenance program for chronic disease Other _ Speech Therapy (select all that apply): [_] None [_] Swallow evaluation and training [_] Speech and language training [_] Cognitive training to process, organize, and/or recall information Other _ ? *Homebound due to (select all that apply): [_] Inability to leave home without assistance/supervision [_] Inability to ambulate without assistance [_] Pain [_] Decreased strength and endurance [_] Unsteady gait [_] Severe SOB and fatigue [_] Impaired transfers [_] Inability to negotiate stairs [_] Limited weight bearing [_] Mental status change? *Physician Signature:??LA ?? *By signing this, I certify that I have personally evaluated the patient and agree with the findings and recommendations as documented above. ? Results Discharge Labs BLOOD BANK Blood Type A Positive ()?? 07/20/2023 08:09 Antibody Screen Positive ()?? 07/20/2023 08:09 RBC Unit ID [id number] ()?? 07/21/2023 02:45 RBC Available PT ()?? 07/21/2023 02:45 Antibody Identification 1 Inconclusive Wkup use SP XMs ()?? 07/20/2023 10:11 ? BLOOD COUNT & DIFF WBC 4.2 k/mm3 ()?? 07/22/2023 06:34 RBC 2.96 m/mm3 (Low)?? 07/22/2023 06:34 Hgb 7.1 Gm/dL (Low)?? 07/24/2023 05:40 Hct 23.2 % (Low)?? 07/24/2023 05:40 MCV 85.8 femtoliters ()?? 07/22/2023 06:34 MCH 26.7 pg (Low)?? 07/22/2023 06:34 MCHC 31.1 g/dL (Low)?? 07/22/2023 06:34 Platelet Count 109 k/mm3 (Low)?? 07/22/2023 06:34 RDW-SD 50.7 femtoliters (High)?? 07/22/2023 06:34 MPV 10.0 femtoliters ()?? 07/22/2023 06:34 Nucleated RBC (Automated) 0.0 #/100 WBC'S ()?? 07/22/2023 06:34 Abs. NRBC 0.0 k/mm3 ()?? 07/22/2023 06:34 Abs. Neut 5.8 k/mm3 ()?? 07/11/2023 18:07 Abs. Lymph 0.2 k/mm3 (Low)?? 07/11/2023 18:07 Abs. [place] 0.5 k/mm3 ()?? 07/11/2023 18:07 Abs. Eo 0.0 k/mm3 ()?? 07/11/2023 18:07 Abs. Baso 0.0 k/mm3 ()?? 07/11/2023 18:07 Neut % 88.0 % (High)?? 07/11/2023 18:07 Lymph % 3.5 % (Low)?? 07/11/2023 18:07 [place] % 7.0 % ()?? 07/11/2023 18:07 Eos % 0.2 % ()?? 07/11/2023 18:07 Baso % 0.5 % ()?? 07/11/2023 18:07 Retic Count 1.7 % ()?? 07/21/2023 00:48 Retic Count Corrected 0.8 % (Low)?? 07/21/2023 00:48 Retic Production Index 0.4 % (Low)?? 07/21/2023 00:48 Imm Gran 0.8 % ()?? 07/11/2023 18:07 Abs. Imm Gran 0.1 k/mm3 ()?? 07/11/2023 18:07 ? CARDIAC High Sensitivity Troponin (HSTnT) 101 ng/L (Critical)?? 07/11/2023 21:10 ? CHEM GENERAL Sodium 143 mmol/L ()?? 07/22/2023 06:34 Potassium 4.4 mmol/L ()?? 07/22/2023 06:34 Chloride 113 mmol/L (High)?? 07/22/2023 06:34 Bicarbonate Level 22 mmol/L ()?? 07/22/2023 06:34 Anion Gap 8 ()?? 07/22/2023 06:34 Glucose Level 98 mg/dL ()?? 07/22/2023 06:34 Glucose, POC 77 mg/dL ()?? 07/24/2023 07:34 BUN 34 mg/dL (High)?? 07/22/2023 06:34 Creatinine-Blood 1.5 mg/dL (High)?? 07/22/2023 06:34 Estimated GFR Creatinine 47 ML/MIN/1.73 M2 ()?? 07/22/2023 06:34 Calcium 7.8 mg/dL (Low)?? 07/22/2023 06:34 Magnesium 2.1 mg/dL ()?? 07/19/2023 09:00 Protein, Total 5.6 Gm/dL (Low)?? 07/19/2023 09:00 Albumin 3.0 Gm/dL (Low)?? 07/19/2023 09:00 AG Ratio 1.2 ()?? 07/19/2023 09:00 LDH 229 units/L ()?? 07/21/2023 00:48 Alkaline Phosphatase 178 units/L (High)?? 07/19/2023 09:00 AST (SGOT) 31 units/L ()?? 07/19/2023 09:00 ALT (SGPT) 33 units/L ()?? 07/19/2023 09:00 Bilirubin, Total 0.4 mg/dL ()?? 07/19/2023 09:00 Lactate 1.2 mmol/L ()?? 07/11/2023 18:40 C-Reactive Protein 4.6 mg/dL (High)?? 07/15/2023 00:49 ?? COAG INR 1.3 (High)?? 07/17/2023 00:29 Protime (PT) 13.6 seconds (High)?? 07/17/2023 00:29 ?? FLUID STUDIES Color, Fluid YELLOW ()?? 07/13/2023 15:00 Appearance, Fluid CLEAR ()?? 07/13/2023 15:00 WBC, Fluid 279 per Cubic Millimeter ()?? 07/13/2023 15:00 RBC, Fluid <3000 per Cubic Millimeter ()?? 07/13/2023 15:00 Band, Fluid 3 % ()?? 07/13/2023 15:00 Seg, Fluid 54 % ()?? 07/13/2023 15:00 Lymph, Fluid 12 % ()?? 07/13/2023 15:00 [place], Fluid 11 % ()?? 07/13/2023 15:00 Baso, Fluid 1 % ()?? 07/13/2023 15:00 Other, Fluid 19 % ()?? 07/13/2023 15:00 T. Protein, Fluid 1.3 Gm/dL ()?? 07/13/2023 15:00 Albumin, Fluid 0.7 Gm/dL ()?? 07/13/2023 15:00 ?? HEME OTHER Sed Rate 15 mm/hr ()?? 07/15/2023 00:49 Hold Lavender Top SPECIMEN DISCARDED AFTER 24 HOURS. ()?? 07/16/2023 08:44 ?? IMMUNOLOGY GENERAL Haptoglobin 41 mg/dL ()?? 07/21/2023 00:48 ? MISC. CHEMISTRY Ammonia, Venous 25 ??mole/L ()?? 07/11/2023 21:10 Hold Gel Top SPECIMEN DISCARDED AFTER 1 WEEK ()?? 07/16/2023 08:44 ?? UA/URINALYSIS Appear/Color, Urine COLORLESS ()?? 07/11/2023 21:20 Specific [place], Urine 1.007 ()?? 07/11/2023 21:20 pH, Urine 5.5 ()?? 07/11/2023 21:20 Albumin, Urine NEGATIVE ()?? 07/11/2023 21:20 Glucose, Urine 3+ (Abnormal)?? 07/11/2023 21:20 Ketones, Urine NEGATIVE ()?? 07/11/2023 21:20 Bilirubin, Urine NEGATIVE ()?? 07/11/2023 21:20 Hemoglobin, Urine NEGATIVE ()?? 07/11/2023 21:20 Nitrite, Urine NEGATIVE ()?? 07/11/2023 21:20 Leukocyte, Urine NEGATIVE ()?? 07/11/2023 21:20 Urobilinogen NORMAL mg/dL ()?? 07/11/2023 21:20 WBC's, Urine <1 /HPF ()?? 07/11/2023 21:20 RBC's, Urine NONE SEEN /HPF ()?? 07/11/2023 21:20 Bacteria SLIGHT HPF (Abnormal)?? 07/11/2023 21:20 Squamous Epith <1 /HPF ()?? 07/11/2023 17:50 Hyaline Cast 1 LPF ()?? 07/11/2023 17:50 Mucus SLIGHT /LPF ()?? 07/11/2023 17:50 Hold Urine Culture Testing available 48 hours from time of collection. ()?? 07/11/2023 21:20 ?? URINE OTHER Creatinine, Urine Random 48.9 mg/dL ()?? 07/20/2023 16:22 Sodium, Urine Random 30 mmol/L ()?? 07/20/2023 16:22 Urea Nitrogen, Urine Random 425.1 mg/dL ()?? 07/20/2023 16:22 ? VIROLOGY Influenza A PCR NEGATIVE ()?? 07/11/2023 22:26 Influenza B PCR NEGATIVE ()?? 07/11/2023 22:26 RSV PCR NEGATIVE ()?? 07/11/2023 22:26 COVID-19 PCR Specimen Source NASAL ()?? 07/11/2023 22:26 COVID-19 PCR Result NEGATIVE ()?? 07/11/2023 22:26 ? Imaging(s) ?MRI Cervical Spine W+W/O Contrast ?? 07/15/2023 14:40??by Zo Nation MD ?IMPRESSION: 1. Chronic bony erosion in the opposing endplates at C5-6, with interval decrease in edema/fluid atthis site, consistent with chronic sequelae of prior discitis/osteomyelitis. Slight improvement in moderate central stenosis at this level due to decreased epidural phlegmon, with persistent chronic myelopathic cord signal change at this level. 2. Central disc extrusion at C6-7 results in focal severe spinal stenosis with cord compression andsubtle myelopathic cord signal abnormality, fairly similar to prior. ?Echocardiogram - Complete ?? 07/16/2023 11:41??by Rock ROONEY Leslie ?Summary ??- The left ventricle is normal in size. There is mild left ventricular ??hypertrophy. Normal left ventricular function. Visually estimated LVEF ??65-70%. There are no definite wall motion abnormalities seen in limited ??views. Moderate diastolic dysfunction. ??-The right ventricle is poorly visualized. Function appears preserved. ??-Biatrial dilation. ??-There is a well-seated bioprosthetic aortic valve (26 mm Leone WILVER 3 ??ultra). There is no significant paravalvular regurgitation. Peak velocity ??across the prosthetic valve is 3.4 m/s, DI 0.45, AT < 100 ms, EOA index 0.8 ??consistent with high flow state. ??-No pericardial effusion ?? Impressions ??There is no definite evidence of mobile echodensities suspicious for ??vegetation in this below average quality study. Pursue LISANDRA for better ??evaluation of the valves if clinically indicated. ?Knee 3 Views Left ?? 07/14/2023 15:36??by Roberth ROONEY, Gigi Meyer ?IMPRESSION: ?? 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 ?? No specific findings of osteomyelitis. WSN: [id number] ?CT Heart/Coronary/3D/Morph ?? 07/17/2023 15:25??by Nghia ROONEY, Lou Geiger ?IMPRESSION: ?? Status post TAVR. Along the left cusp there is low density thickening measuring up to 4 mm, suggesting fibrosis, less likely vegetation, although a small vegetation cannot be entirely excluded. ?? Ascites. ?US Guide Abdomen Paracentesis w/Imaging ?? 07/13/2023 14:36??by Laura Phillips ? IMPRESSION: Successful ultrasound guided paracentesis with evacuation of 800 ml of clear yellow ascites. ?CT Abd/Pelvis W/ IV Contrast Only ?? 07/11/2023 19:42??by Roberth ROONEY, Gigi S ?IMPRESSION: ?? Distended bladder. No definite acute abnormality. ?? Findings consistent with cirrhosis and mild ascites. Splenomegaly. ?? No other acute abnormality identified. ? Patient has been??seen and discussed with Dr. Osorio Vann??MD [facility] ?? 50??minutes spent on discharge * Anh Batista RN: PERFORM Event Display: Patient Education/Instruction Authored Date: [id number] Inpatient Adult Discharge Instructions [address] [id number] Name: GILLES WRIGHT : 1945 Visit: 07/13/2023 15:55:00 Current Date: 07/24/2023 10:39 Account: [id number] Inpatient Adult Discharge Instructions We would like [...] and their families. Surveys are administered by [employer]. ?? If further treatment with your primary care physician or another doctor is recommended, it is important for you to keep the appointment. Call your primary care physician or return to the Emergency Department immediately if your condition worsens, fails to improve, or new symptoms develop. If you need to find a doctor, you can call [facility] for a referral at [phone] or toll free at [phone]) or log in to [email or web address] ?? [facility], in keeping with [facility] guidance, no longer requires face masks for staff, patientsor visitors in most situations. Similiar to time spent indoors at other locations, there is the chance that you were exposed to repiratory viruses during your time with us (such as flu or COVID-19). If you develop symptoms concerning for a viral respiratory infection, please seek testing (and treatment if indicated) from your medical provider or home test kit. ?? You can view and manage your care through the patient portal or by using a health care zoe of your choosing. [employer] is a website that allows you to securely view your medical information including your hospital discharge summary, office visit summaries, medications and follow-up visits. You can also request appointments, renew medications, and request access to your medical information using a health care zoe of your choosing, or just ask a question. You can enroll at [email or web address] or register during your next office visit. You have been discharged from [facility], Patient Care Unit: S3. If you have any questions regarding these instructions after you leave, please call us and we will be happy to assist you. [facility] Your Care Team Attending Physician Osorio ROONEY, Kitty Consulting Providers Harper ROONYE, Cole Culp; Bob ROONEY, Adonay; Husam ROONEY, Александр Reilly; Katey ROONEY, Fabricio Alvarado; Ilana ROONEY, Yaniv Tan; Jakub ROONEY, Kelly Discharging Providers Royal ROONEY, Soo Reason for Admission from home, c/o odorours urine and new incontinence and R flank pain, per EMS this is his 5th ems call in the last several days, hx of ascitis and c/o of swollen abd, has had paracentisis in the past Your Diagnosis Generalized weakness Ascites Cervical stenosis of spinal canal Lumbar stenosis with neurogenic claudication Bacteremia 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 You may have had other tests and procedures not included in this list. Please discuss all test results with your provider. Albumin Fluid Ammonia Venous Basic Metabolic Panel?-- Results Pending -- CBC CBC w/ Differential Cell Count and Differential Fluid Comprehensive Metabolic Panel COVID-19, RSV, and Flu A/B, Rapid PCR CREATININE, URINE MG/DL CRP ESR GLUCOSE POC H + H HAPTOGLOBIN High??Sensitivity??Troponin T HOLD GEL TUBE HOLD LAVENDER TUBE INR Lactate Level LDH Magnesium Level Mg Level Protein Fluid RETICULOCYTE COUNT SODIUM, URINE MMOL/L Type and Screen Urinalysis w/hold for Urine Culture Urine Urea Nitrogen CT Abd/Pelvis W/ IV Contrast Only CT Heart/Coronary/3D/Morph MRI Cervical Spine W+W/O Contrast MRI Lumbar Spine W+W/O Contrast US Guide Abdomen Paracentesis w/Imaging XR Chest 2 Views Frontal and Lat XR Knee 3 Views Left You will be contacted within 72 hours with your results. Primary Care Provider Vita ROONEY, Maninder Sanon Advance Directive Health Care Proxy on File Yes - Health Care Proxy Discharge Vitals Temperature: 97.8 DegF Height: 175.26 cm Pulse Rate: 67 bpm Weight: 87.5 kg Respiratory Rate: 18 br/min Body Mass Index:??28.91 kg/m2??High Systolic Blood Pressure: 118 mm Hg Body surface area: 2.08 Diastolic Blood Pressure:??92 mm Hg??High ?? Oxygen Saturation: 96 % ?? Studies Pending All tests and labs ordered during this hospital stay have been completed unless listed below. Please discuss all pending results with your provider listed above in these instructions. ?? Add On Lab Order (Lab Add On Order) Basic Metabolic Panel Blood Culture Blood Culture #2 Hold Lavender Tube (BB) Tissue Culture w/ Gram Smear (Culture Tissue w/ Gram Smear) Transfuse RBCs What to do next Instructions From Your Doctor You had a mild kidney injury during your hospital stay, which was likely due to dehydration from not drinking enough fluids and also being on medicattions that would make you even more dehydrated, like the lasix and spironolactone. We held these two medications, and your kidney function is back to your normal. Please do not take them for the next two days, try to drink enough fluids, and then restart both of them again on Friday 07/27. ?? Your home dose of Tresiba is 60U however you have only been receiving 10U here in the hospital and your sugar levels have been well controlled. Please make sure to book an appointment with your primary care provider to discuss the most appropriate dose for you. Discharge Orders Diet:??Cardiac diet Activity:??As tolerated Code Status:?? Full Resuscitation Scheduled Follow-Up Appointments Thursday 10:20 AM EST ?? With: Harper ROONEY, Cole Culp Where: [facility] Infectious Disease [address] [place] [id number] Status: Pending You Need to Schedule the Following Appointments Follow Up with??Vita ROONEY, Maninder Sanon When:??Within 1 to 2 weeks Where: [address] [place] [address]- Discharge Medications GILLES WRIGHT :1945 Visit Date:07/13/2023 Medications: Please continue your medications until treatment is completed or stopped by your provider. Medications not listed below should be discontinued. Discuss any questions related to medications with your provider. What How Much When Instructions Next Dose New Ceftriaxone (ceftriaxone 2 gm injectable powder for injection) 2 gram IV Piggyback Every 12 hours 9pm 07/24 New penicillin G potassium (penicillin G potassium 3,000,000 units/ 50 mL intravenous solution) 50 Milliliter IV Piggyback Every 6 hours last dose was at 10am today Changed Gabapentin (gabapentin 300 mg oral capsule) 1 capsule Oral Twice a day Pickup at [id number] 07/24 Changed insulin degludec (Tresiba FlexTouch 200 units/ mL subcutaneous solution) INJECT 60 UNITS UNDER THE SKIN AT BEDTIME ?? 07/24 Unchanged Alprazolam (ALPRAZolam 0.5 mg oral tablet) TAKE 1 TABLET BY MOUTH TWICE DAILY NEEDED FOR ANXIETY ?? as needed Unchanged Aspirin (aspirin 81 mg oral delayed release tablet) 1 tab(s) Oral Daily Do not start aspirin until 2021 ?? 07/25 Unchanged Atorvastatin (Lipitor 80 mg oral tablet) 1 tab(s) Oral Daily 07/25 Unchanged Bethanechol (bethanechol 25 mg oral tablet) 1 tab(s) Oral Twice a day 07/24 Unchanged Carvedilol (Coreg 6.25 mg oral tablet) 1 tab(s) Oral Twice a day Hold if systolic blood pressure is below 120 mmHg and/ or heart rate is below 55 [id number] ?? 07/24 Unchanged Clopidogrel (clopidogrel 75 mg oral tablet) 1 tab(s) Oral Daily 07/25 Unchanged dapagliflozin (Farxiga 10 mg oral tablet) 1 tab(s) Oral Daily 07/25 Unchanged dulaglutide (Trulicity Pen 0.75 mg/ 0.5 mL subcutaneous solution) 0.5 Milliliter Subcutaneous Injection Every week EVERY THURSDAY ?? every Thursday Unchanged Durable Medical Equipment (Blood Pressure Monitor) See instructions Blood pressure cuff ?? ICD: I10 ?? see instruction Unchanged Ezetimibe (Zetia 10 mg oral tablet) 1 tab(s) Oral Daily 07/25 Unchanged Ferrous Sulfate (ferrous sulfate 325 mg oral enteric coated tablet) 1 tab(s) Oral Daily 07/25 Unchanged Finasteride (finasteride 5 mg oral tablet) 1 tab(s) Oral Daily 07/25 Unchanged Folic Acid (folic acid 0.8 mg oral tablet) TAKE 1 TABLET BY MOUTH EVERY DAY ?? 07/25 Unchanged Insulin Aspart (NovoLOG FlexTouch) See instructions 2-25 units Subcutaneous Injection 3 times a day before meals and bedtime ?? see instruction Unchanged Lactulose (lactulose 10 gm/ 15 ml oral syrup) See instructions Take 15 mL as needed for constipation, please maintain daily bowel movement, hold for excessive loose stool or diarrhea (more than 3 times a day)., As needed for Other ?? as needed- see instruction Unchanged Midodrine (midodrine 10 mg oral tablet) 1 tab(s) Oral 3 times a day To help maintain systolic blood pressure above 110-120 mmHg ?? 3pm 07/24 Unchanged Pantoprazole (pantoprazole 40 mg oral delayed release tablet) 1 tab(s) Oral Daily 9a07/25 Unchanged Tamsulosin (tamsulosin 0.4 mg oral capsule) 1 capsule Oral Daily (LAST FILLED ) ?? 9am 07/25 Pharmacy Information [id number] [address], [place] [id number] [phone] ?? What How Much When Comments Stop Taking Furosemide (Lasix 40 mg oral tablet) 1 tab(s) Oral Daily For ascites. Hold if systolic blood pressure is below 120 mmHg. ?? Stop Taking Lidocaine Topical (lidocaine 5% topical film) 1 patch Topically Daily Apply to back of the neck tender point, 12 hours on then 12 hours off. ?? Stop Taking nalOXONE (Narcan 4 mg/ 0.1 mL nasal spray) 4 Milligram Nares, Both Once as needed for Other To reverse opioid overdose, administer to each nostril, may repeat every 2 to 3 minutes until patient responds, call 911 in the meantime. ?? Stop Taking Spironolactone (Aldactone 100 mg oral tablet) 1 tab(s) Oral Daily For ascites. Hold if systolic blood pressure is below 120 mmHg. ?? Test Results Below is a partial list of the most recent Laboratory test results done prior to this discharge. You may have had other tests and procedures not included in this list. Please discuss all test resultswith your provider. Antibody Identification 1 - Inconclusive Wkup use SP XMs (07/20/2023) RBC Available - PT (07/21/2023) RBC Unit ID - [id number] (07/21/2023) Albumin Fluid (07/13/2023) ???Albumin, Fluid - 0.7 Gm/dL Ammonia Venous (07/11/2023) ???Ammonia, Venous - 25 ??mole/L CBC (07/22/2023) ???WBC - 4.2 k/mm3???RBC - 2.96 m/mm3???Hgb - 7.9 Gm/dL???Hct - 25.4 %???MCV - 85.8 femtoliters???MCH - 26.7 pg???MCHC - 31.1 g/dL???Platelet Count - 109 k/mm3???RDW-SD - 50.7 femtoliters???MPV - 10.0 femtoliters???Nucleated RBC (Automated) - 0.0 #/100 WBC'S???Abs. NRBC - 0.0 k/mm3 CBC w/ Differential (07/11/2023) ???WBC - 6.6 k/mm3???RBC - 2.99 m/mm3???Hgb - 8.0 Gm/dL???Hct - 25.5 %???MCV - 85.3 femtoliters???MCH - 26.8 pg???MCHC - 31.4 g/dL???Platelet Count - 125 k/mm3???RDW-SD - 52.9 femtoliters???MPV - 10.8 femtoliters???Nucleated RBC (Automated) - 0.0 #/100 WBC'S???Abs. NRBC - 0.0 k/mm3???Abs. Neut - 5.8 k/mm3???Abs. Lymph - 0.2 k/mm3???Abs. [place] - 0.5 k/mm3???Abs. Eo - 0.0 k/mm3???Abs. Baso - 0.0 k/mm3???Neut % - 88.0 %???Lymph % - 3.5 %???[place] % - 7.0 %???Eos % - 0.2 %???Baso % - 0.5 %???Imm Gran - 0.8 %???Abs. Imm Gran - 0.1 k/mm3 Cell Count and Differential Fluid (07/13/2023) ???Color, Fluid - YELLOW???Appearance, Fluid - CLEAR???WBC, Fluid - 279 per Cubic Millimeter???RBC,Fluid - <3000 per Cubic Millimeter? ?Band, Fluid - 3 %? ?Seg, Fluid - 54 %? ?Lymph, Fluid - 12 %???[place], Fluid - 11 %???Baso, Fluid - 1 %???Other, Fluid - 19 % Comprehensive Metabolic Panel (07/19/2023) ???Sodium - 141 mmol/L???Potassium - 4.5 mmol/L???Chloride - 108 mmol/L???Bicarbonate Level - 21 mmol/L???Anion Gap - 12???Glucose Level - 144 mg/dL???BUN - 37 mg/dL???Creatinine-Blood - 1.6 mg/dL???Estimated GFR Creatinine - 43 ML/MIN/1.73 M2???Calcium - 7.7 mg/dL???Protein, Total - 5.6 Gm/dL???Alb umin - 3.0 Gm/dL???AG Ratio - 1.2???Alkaline Phosphatase - 178 units/L???AST (SGOT) - 31 units/L???ALT (SGPT) - 33 units/L???Bilirubin, Total - 0.4 mg/dL COVID-19, RSV, and Flu A/B, Rapid PCR (07/11/2023) ???Influenza A PCR - NEGATIVE???Influenza B PCR - NEGATIVE???RSV PCR - NEGATIVE???COVID-19 PCR Specimen Source - NASAL???COVID-19 PCR Result - NEGATIVE CREATININE, URINE MG/DL (07/20/2023) ???Creatinine, Urine Random - 48.9 mg/dL CRP (07/15/2023) ???C-Reactive Protein - 4.6 mg/dL ESR (07/15/2023) ???Sed Rate - 15 mm/hr GLUCOSE POC (07/24/2023) ???Glucose, POC - 77 mg/dL H + H (07/24/2023) ???Hgb - 7.1 Gm/dL???Hct - 23.2 % HAPTOGLOBIN (07/21/2023) ???Haptoglobin - 41 mg/dL High??Sensitivity??Troponin T (07/11/2023) ???High Sensitivity Troponin (HSTnT) - 101 ng/L HOLD GEL TUBE (07/16/2023) ???Hold Gel Top - SPECIMEN DISCARDED AFTER 1 WEEK HOLD LAVENDER TUBE (07/16/2023) ???Hold Lavender Top - SPECIMEN DISCARDED AFTER 24 HOURS. INR (07/17/2023) ???INR - 1.3???Protime (PT) - 13.6 seconds Lactate Level (07/11/2023) ???Lactate - 1.2 mmol/L LDH (07/21/2023) ???LDH - 229 units/L Magnesium Level (07/18/2023) ???Magnesium - 2.0 mg/dL Mg Level (07/19/2023) ???Magnesium - 2.1 mg/dL Protein Fluid (07/13/2023) ???T. Protein, Fluid - 1.3 Gm/dL RETICULOCYTE COUNT (07/21/2023) ???Retic Count - 1.7 %???Retic Count Corrected - 0.8 %???Retic Production Index - 0.4 % SODIUM, URINE MMOL/L (07/20/2023) ???Sodium, Urine Random - 30 mmol/L Type and Screen (07/20/2023) ???Blood Type - A Positive???Antibody Screen - Positive Urinalysis w/hold for Urine Culture (07/11/2023) ???Appear/Color, Urine - COLORLESS???Specific [place], Urine - 1.007???pH, Urine - 5.5???Albumin, Urine - NEGATIVE???Glucose, Urine - 3+???Ketones, Urine - NEGATIVE???Bilirubin, Urine - NEGATIVE???Hemoglobin, Urine - NEGATIVE???Nitrite, Urine - NEGATIVE???Leukocyte, Urine - NEGATIVE???Urobilinogen - NORMAL? ?WBC's, Urine - <1 /HPF? ?RBC's, Urine - NONE SEEN? ?Bacteria - SLIGHT? ?Hold Urine Culture - Testing available 48 hours from time of collection. Urine Urea Nitrogen (07/20/2023) ???Urea Nitrogen, Urine Random - 425.1 mg/dL Immunizations This Visit Given Vaccine Date influenza virus vaccine, inactivated 07/14/2023 Allergies (NKA means No Known Allergies) Latex??(Rash) TiZANidine Hydrochloride??(hallucination) lisinopril??(throat swelling) pregabalin??(hallucination) Problems Active Problems??(12) CAD (coronary artery disease), LAD?? CHF (congestive heart failure)?? Diabetes mellitus type 2, insulin?? Essential hypertension?? Hyperlipidemia?? Iron deficiency anemia?? Neuropathy?? Old myocardial infarction, NSTEMI, s/p ZORA?? ANUJA on CPAP?? Pericardial effusion, s/p pericardiocentesis?? Prostate cancer?? Pulmonary HTN?? Education Materials Below is the list of Educational Leaflet Providered with your Discharge Instructions. Discharge Instructions: Caring for Your Peripherally Inserted Central Catheter (PICC)?? Peripherally Inserted Central Catheter (PICC)?? Bacteremia, Suspected (Adult)?? Valuables and Belongings I fully understand and agree that [facility] accepts no responsibility for all my personal [...] witness Date for Pt to Sign Valuables/Belongings: 07/24/23 09:59:00 ?? Other Discharge Information ? Case Management Discharge Plan?? Discharge Plan?? Discharge Agency Information?? Discharge Level of Care at Discharge: Homehealth/VNA Name of Agency #1: [facility] [phone] Discharge VNA/Hospice/Home Care: [facility] [phone] Name of Agency #1: [facility] Discharge Medical Equipment Companies: [facility] [phone] Service Categories #1: Home IV antibiotics, Occupational Therapy, Physical Therapy, Senior Care ?? Service Comments #1: [facility] will meet you at your home on discharge to assist and educate you on your IV antibiotics. ?? Service Categories #2: Home IV antibiotics ?? Service Comments #2: [facility] will provide your antibiotics and equipment. ?? Pulmonary Rehab Status?? Pulmonary Rehab Discharge Status?? Respiratory Rate: 18 br/min Discharge Medical Equipment Companies: [facility] [phone] ? Common Emergency Awareness Tips IS IT [...] are strongly encouraged to quit. Please call [facility] [employer] at [phone] or [phone] [phone]) or log in to [email or web address] for referrals to smoking cessation programs. ?? 075 Suicide & Crisis Lifeline is available 06/04 if you or someone you know needs to find a reason to keep living. By calling 441 you'll be connected to a skilled, trained counselor at a crisis center in your area. INPATIENT DISCHARGE INSTRUCTIONS SIGNATURE PAGE GILLES WRIGHT Location:[facility] Registration Date and Time:07/13/2023 15:55 EDT Primary Care Physician: Vita ROONEY, Maninder Sanon, Attending Physician: Kitty Ac MD, I GILLES WRIGHT, have received the above patient education materials/instructions and have verbalized understanding. If ambulance or transport services are being used I further acknowledge being given a choice of service. ?? If you need to contact me, please call me at this number: . Patient/Product Safety Consultant Name: Patient/Product Safety Consultant Signature: Relationship to Patient: Witness Name/Signature: Date: * Soo Paige MD: PERFORM Event Display: Patient Education Leaflets Authored Date: [id number] Discharge Instructions: Caring for Your Peripherally Inserted Central Catheter (PICC) ?? [id number] Discharge Instructions: Caring for Your Peripherally Inserted Central Catheter (PICC) You are going home with a peripherally inserted central catheter (PICC). This small, soft tube has been placed in a vein in your arm. It's often used when treatment needs medicines, fluids, or nutrition for weeks or months. At home, you need to take care of your PICC to keep it working.??Because a PICC line has a high infection risk, you must take extra care washing your hands and preventing the spread of germs. This sheet will help you remember what to do to care for your PICC at home. Understanding your role A nurse or other healthcare provider will teach you and your caregivers how to care for the PICC. Before leaving the hospital, make sure you understand what to do at home, how long you may need the PICC, and when to have a follow-up visit. Write down important details about caring for your PICC, including the following: Follow-up visit scheduled: PICC dressing change due date: Healthcare provider in charge of PICC care and their phone number: Who to call with concerns about your PICC line and their phone number: Any other important information: ?? Protecting the PICC If the PICC gets damaged, it won???t work right and could raise your chance of infection. Call yourhealthcare team right away if any damage occurs. To protect the PICC at home: ??? Prevent infection. Use good hand hygiene by following the guidelines on this sheet. Don???t touch the catheter or dressing unless you need to. And always clean your hands before and after you come in contact with any p art of the PICC. Your caregivers, family members, and any visitors should use good hand hygiene, too. ??? Keep the PICC dry. The catheter and dressing must stay dry. Don???t take baths, go swimming, use a hot tub, or do other things that could get the PICC wet. Take a sponge bath to prevent gettingyour catheter wet, unless your healthcare provider tells you otherwise. Ask your provider about thebest way to keep your catheter dry when bathing or showering. If the dressing does get wet, change it only if you have been shown how. Otherwise, call your healthcare team right away for help. ??? Don't damage the catheter. Don???t use any sharp or pointy objects around the catheter. This includes s cissors, pins, knives, razors, or anything else that could cut it or put a hole in it (puncture it). Also, don???t let anything pull or rub on the catheter, such as clothing. ??? Watch for signs of problems. Pay attention to how much of the catheter sticks out from your skin. If this changes at all, let your healthcare provider know. Also watch for cracks, leaks, or other damage. If the dressing becomes dirty, loose, or wet, change it (if you have been directed to). Or call your healthcare teamright away. ??? Tell your healthcare team if you vomit or have severe coughing. This can also make the catheter slip out of place. ?? Protecting your arm The arm with the PICC is at risk for developing blood clots (thrombosis). This is a serious problem. To help prevent it: ??? As much as possible, use the arm with the PICC in it for normal daily activities. Lack of movement can lead to blood clots. It???s important to move your arm as you normally would. Your healthcare team may suggest light arm exercises. ??? Don't do activities or exercises that need major use of your arm, such as sports, unless your healthcare provider says it???s OK. ??? Don't do any activities that cause mild pain in your arm. Talk to your healthcare team if you have concerns about pain or range of motion. ??? Don???t lift anything heavier than 10 pounds with the affected arm. ??? Drink plenty of water. Staying hydrated helps keep clots from forming. ?? Prevent infection with good hand hygiene A PICC can let germs into your body. This can lead to serious and sometimes deadly infections. To prevent infection, it???s very important that you, your caregivers, and others around you use good hand hygiene. This means washing your hands well with soap and water and cleaning them with an alcohol-based hand gel as directed. Never touch the PICC or dressing without first using one of these methods. To wash your hands with soap and water: ??? Wet your hands with clean water. (Don't use hot water, which can cause skin irritation when youwash your hands often.) ??? Apply enough soap to cover the whole surface of your hands, including your fingers. ??? Rub your hands together vigorously (using a lot of energy) for at least 20 seconds.Make sure to rub the front and back of each hand up to the wrist, your fingers and fingernails, betw een the fingers, and each thumb. ??? Rinse your hands with clean water. ??? Dry your hands completely with a new, unused paper towel. Don???t use a cloth towel or other reusable towel. These can harbor germs. ??? Use the paper towel to turn off the faucet, then throw it away. If you???re in a bathroom, also use a paper towel to open the door instead of touching the handle. When you don???t have access to soap and water:?? Use an alcohol-based hand gel to clean your hands. The gel should have at least 60% alcohol. Let the alcohol fully dry. Follow the directions on the package. Your healthcare team can answer any questions you have about when to use hand gel, or when it???s better to wash with soap and water. ?? When to call your healthcare provider Call your healthcare provider right away if any of the following occur: ??? Pain or burning in yourshoulder, chest, back, arm, or leg ??? Fever of 100.4?? F ( 38??C ) or higher, or as directed by your provider ??? Chills ??? Signs of infection at the catheter site (pain, redness, drainage, burning, or stinging) ??? Coughing, wheezing, or shortness of breath ??? A racing or irregular heartbeat ??? Muscle stiffness or trouble moving ??? Tightness in your arm, above the catheter site ??? Gurglingnoises coming from the catheter ??? The catheter falls out, breaks, cracks, leaks, or has other damage ?? Last Reviewed Date: 2021 ?? [id number] [employer]. All rights reserved. This information is not intended as a substitute for professional medical care. Always follow your healthcare professional's instructions. ?? * Soo Paige MD: PERFORM Event Display: Patient Education Leaflets Authored Date: [id number] Peripherally Inserted Central Catheter (PICC) ?? [id number] Peripherally Inserted Central Catheter (PICC) You need a peripherally inserted central catheter (PICC) for your treatment. A catheter is a small,soft tube. The catheter is inserted into a vein in your arm. It is then moved through??your vein until the tip sits in the large vein (vena cava) near??your heart. A PICC is often used when treatmentneeds you to have medicine or nutrition for weeks or months. When you no longer need the PICC, yourhealthcare provider will remove it.??Your skin will then heal. This article tells you more about a PICC and how a healthcare provider places it??in your body. A PICC may have more than one channel. This means that different fluids or medicines can be given at once. Keep in mind that your PICC should be accessed only by trained medical office receptionist. Why do I need a PICC? A PICC takes the place of a standard IV (intravenous) line. A standard IV needs to be changed everyfew days. Since the PICC can stay in place longer, you may??have fewer needle sticks during your treatment. There is less damage to the small veins where an IV would normally be inserted. Your healthcare provider can give you more details about why you need the PICC. ?? Getting a PICC A short procedure is done to place the PICC in your body. This will be done in your hospital room, the radiology department, or somewhere else in the hospital. It may vary slightly from the steps described here. Your healthcare team can tell you what to expect. In general, during PICC placement: ??? You???re fully covered with a large sterile sheet (drape). This lowers risk for infection. Only the spot where the PICC will be placed is exposed. The skin here is cleaned with an antiseptic solution. ??? Ultrasound images may be viewed on a video screen. These are used to help find the best vein to use. ??? The area where the PICC will be inserted is numbed with a shot of local anesthetic. Thisdecreases discomfort??during the PICC placement. ??? After the local anesthetic takes effect, the catheter is gently passed into the vein. It???s moved along until the tip is in the vena cava, close to the heart. ??? The other end of the catheter sticks out a few inches from your skin. It may be loosely attached to the skin with stitches (sutures) or a securement device. A dressing is placed overthe area where the catheter enters your skin. ??? The provider will flush the catheter with saline solution to clear it. The solution may include heparin, which prevents blood clots. ??? An X-ray or other imaging test is done. This confirms the catheter???s position and checks for problems. ?? Risks and complications As with any procedure, getting a PICC has certain risks. These include: ??? Infection ??? Bleeding problems ??? An irregular heartbeat ??? Injury to the vein or to lymph ducts near the vein ??? Inflammation of the vein (phlebitis) ??? Clots or air bubbles in the bloodstream ??? Blockage of the blood vessel where the catheter is inserted ??? Clots in the vein that may travel to the lung (pulmonaryembolism) ??? Nerve injury ??? Accidental insertion into an artery instead of a vein ??? Catheter not positioned correctly, or the catheter may move or migrate from its correct position ?? Last Reviewed Date: 2022 ?? [employer]. All rights reserved. This information is not intended as a substitute for professional medical care. Always follow your healthcare professional's instructions. ?? * Soo Paige MD: PERFORM Event Display: Patient Education Leaflets Authored Date: [id number] Bacteremia, Suspected (Adult) ?? [id number] Bacteremia, Suspected (Adult) Bacteremia is a bacterial infection that has spread to the bloodstream. This is serious because it can cause a lot of harm to the body. It can spread to other organs, including the bones, joints, kidneys, brain, and lungs. Bacteremia that spreads and causes significant inflammation in the body is called sepsis. You will have lab tests and imaging tests. The lab tests will include blood cultures to check for bacteremia. Blood cultures will find out the type of bacteria that you have. You will likely be started on antibiotics even before the results of the blood cultures are known. Causes Bacteremia often starts with an infection in one area, but it then spreads to the blood. Almost anytype of infection can cause bacteremia. This includes: ??? Urinary tract infection ??? Skin infection ??? Gastrointestinal problem ??? Infection after surgery ??? Lung infection (pneumonia) ??? Infection of a medical equipment repairer placed in a vein or the bladder ?? Symptoms At first, symptoms may seem like any local infection or illness. But then they get worse. Symptoms can include: ??? Fever and chills ??? Loss of appetite ??? Upset stomach (nausea) or vomiting ??? Trouble breathing or fast breathing ??? Fast heart rate ??? Feeling lightheaded or faint ??? Skin rashes or blotches ??? Confusion, severe sleepiness, or loss of consciousness ?? Home care People with bacteremia are most often treated in the hospital. After the most severe part of the illness is better, you may be sent home to complete your treatment. When caring for yourself at home: ??? Rest at home for the first 2 to 3 days. When resuming activity, don't let yourself become too tired. ??? You can take acetaminophen or ibuprofen for pain, unlessyou were given a different pain medicine to use. Talk with your healthcare provider before using these medicines if you have chronic liver or kidney disease. Talk with your provider if you have had astomach ulcer or digestive bleeding. Also talk with your provider if you are taking medicine to prevent blood clots such as blood thinners. ??? If you were given antibiotics, take them until they areused up, or your provider tells you to stop. It's important to finish the antibiotics even though you feel better. This is to make sure the infection has cleared. ??? Your appetite may be poor, so a light diet is fine. Drink plenty of fluids (6 to 8 glasses of fluid per day). This includes water, soft drinks, sports drinks, juices, tea, or soup. ?? Follow-up care Follow up with your healthcare provider, or as advised. Once the results of the blood culture are known, your healthcare provider may change your antibiotic. You can call for the results. If you had X-rays, a CT scan, or an ultrasound, a healthcare provider will look at them. You will be told of any results that may affect your care. ?? Call 911 Call 911 if you have any of these: ??? Wheezing or trouble breathing ??? Trouble swallowing ??? Chest pain ??? Confusion or sudden change in behavior ??? Extreme drowsiness or trouble waking up ??? Fainting or loss of consciousness ??? Fast heart rate ??? Low blood pressure ??? Vomiting blood, or large amounts of blood in stool ??? Seizure ?? When to get medical care Call your healthcare provider if you have any of these: ??? Cough with lots of colored mucus, or blood in your mucus ??? Severe headache ??? Severe face, neck, throat, or ear pain ??? Belly pain ??? Weakness, dizziness, repeated vomiting, or diarrhea ??? Joint pain or a new rash ??? Burning feelingwhen peeing (urinating) ??? Fever of 100.4??F (38??C) or higher, or as advised by your provider ?? Last Reviewed Date: 2022 ?? [id number] [employer]. All rights reserved. This information is not intended as a substitute for professional medical care. Always follow your healthcare professional's instructions. ?? 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 fire crew specialist a member of PICC/IV Team : Yes Paula Magaña - 07/21/2023 17:06 EST Procedural Comments Risk Factors and Labs Reviewed : Yes Anticoagulation Therapy : Yes Antiplatelet Therapy : No Paula Magaña - 07/21/2023 17:06 EST Was vascular access order placed : Yes [...] line Vascular Access Insertion Site : Other: RUE basilic vein Vascular Access Insertion Side : Right Vascular Access Catheter Size : 4fr Vascular Access Catheter Length : 42cm Vessel Identified By : Ultrasound Vascular Access Insertion Circumstance : Non-emergent Vascular Access Catheter Securement : Statlock Vascular Access Dressing : Occlusive Follow-up CXR : Not applicable CXR Comment : SVC confirmed with Sherlock 3CG technology Paula Magaña - 07/21/2023 17:06 EST DCP GENERIC CODE Suture needles : 0 [place] : 3 Scalpels : 1 Clamps : 0 Guide Wires : 1 Paula Magaña - 07/21/2023 17:06 EST Complications during Insertion : None Tolerated CLIP procedure well : Yes Insertion Attempts : 1 Vascular Access Device QA : [employer] CTPICC SL 4fr @ 42cm Vascular Access Device Lot Number : [id number] Vascular Access Device Code : [id number] Vascular Access Device Expiration Date : 09/13/2024 EST Paula Magaña - 07/21/2023 17:06 EST * Event Display: Provider Clarification Note Please click on pdf link to open report Admission evaluation note * Carlton Raphael MD: MODIFY Carlton Raphael MD: MODIFY, MODIFY, MODIFY Event Display: Admission Note Authored Date: [id number] Patient: ??GILLES WRIGHT ? Age:??78 Years?Sex:??Male?:??1945?? Chief Complaint from home, c/o odorours urine and new incontinence and R flank pain, per EMS this is his 5th ems call in the last several days, hx of ascitis and c/o of swollen abd, has had paracentisis in the past History of Present Illness 77-year-old male with decompensated cirrhosis with known ascites and esophageal varices,??severe aortic stenosis status post TAVR, complete heart block status post pacemaker,??lumbar fusion hardware placed 5 years prior who was admitted??prior in January with generalized weakness. ??Found to have strep bacteremia??and epidural abscess with C5-C6 osteomyelitis.?? He was treated with??6 weeks of ceftriaxone and a repeat nuclear medicine tagged white blood cell scan was completed as an outpatient??with no foci of infection.?? He presents now to the hospital with a few days of generalized weakness.??He reports that he has been unable to walk for the past few days with significant lower extremity weakness.?? His weakness appears to be worse on the left than the right lower extremity.?? His abdomen has become more distended.?Complains of pain in the right lower quadrant.?? He has been incontinent of urine recently.?? Complains of chronic low back pain related to his lumbar fusion 5 years prior and also chronic neck pain related to this??prior infection.?? Apparently he called EMS 5 times in the last few days and when they came to his house they thought that his?? urine smelled malodorous and they brought him for further??evaluation. ?? In the emergency room,??labs and urinalysis fairly unremarkable. ??Known CKD and??anemia which appears to be at baseline.?? Thrombocytopenia as well. ??CT abdomen/pelvis??without any??acute abnormalities aside from cirrhosis and ascites.?? Chest x-ray with suggestion of mild pulmonary edema. Review of Systems Constitutional:??No weight loss, fever, chills, weakness or fatigue. Allergy/Immune: Denies any??Eczema or hives Eyes:??No visual loss, blurred vision, double vision or yellow sclera ENT:??No hearing loss, sneezing, congestion, runny nose or sore throat. Respiratory:??No shortness of breath, cough or sputum production. Cardiovascular:??No chest pain, chest pressure or chest discomfort. No palpitations or pedal edema. Gastrointestinal:??No anorexia, nausea, vomiting or diarrhea. No abdominal pain or blood in stool. Genitourinary:??No burning micturition. No urinary frequency or incontinence. Neurologic:??No headache, dizziness, syncope, unilateral weakness, ataxia, numbness or tingling in the extremities. No change in bowel or bladder control. Musculoskeletal:??No muscle pain, back pain, joint pain or stiffness. Hematologic/Lymphatics:??No bleeding or bruising. No painful lymph nodes. Skin:??No rash or itching. Endocrine:??No reports of sweating. No cold or heat intolerance. No polyuria or polydipsia. Psychiatric:??No depression or anxiety. Physical Exam Vitals & Measurements T:??99.7?F?? TMIN:??98.3?F?? TMAX:??99.7?F?? HR:??97??(Peripheral)?? RR:??28?? BP:??131/52?? SpO2:??92%?? Constitutional: Alert, in no distress. Mental Status: Oriented to person, place and time. Head: Normocephalic. Eyes: Pupils are equal, round and reactive to light. Extraocular muscles intact. Ear, Nose and Throat: Oropharynx clear, mucous membranes moist. Neck: Supple, Full range of motion. Respiratory: Clear to auscultation. No wheezing, rales or rhonchi. Cardiovascular: S1 S2 regular. No murmurs, rubs or gallops. Gastrointestinal: Abdomen soft, non-tender. ??Distended with palpable fluid wave Genitourinary: No costovertebral angle tenderness. Neurologic: Cranial nerves II-XII grossly intact. No focal neurological deficits. Musculoskeletal: No cyanosis or clubbing. ??Straight leg raise test on the left with??pain elicitedand decreased range of motion Psychiatric: Normal mood and affect Assessment/Plan Generalized weakness Decompensated cirrhosis Ascites Esophageal varices Urinary incontinence Lower extremity weakness Severe status post TAVR Complete heart block status post pacemaker implantation Prior lumbar fusion HFpEF, HTN, HLP BPH ?? Etiology of this patient's generalized weakness is unclear With his new urinary incontinence and lower extremity weakness, lumbar spine??MRI ordered??with andwithout contrast to rule out??cauda equina syndrome as well as an epidural abscess Results: spinal stenosis at L5-S1 and persistent osteomyelitis. Reached out to Neurosurgery team via [facility] for consultation re: consideration of bone biopsy, surgical intervention For now, will withhold antibiotics to increase sensitivity if biopsy for culture is considered and obtain blood cultures ?? We will order IR for paracentesis and send for fluid studies At this time, his abdomen is nontender, doubt SBP Lasix and spironolactone will be continued ?? Continue his cardiac medications, carvedilol,??Farxiga,??atorvastatin and aspirin Holding Plavix for??paracentesis ?? Continue finasteride, bethanechol and Flomax ?? Continue his gabapentin for chronic pain ?? Quality Measures DVT prophylaxis: Lovenox GI prophylaxis: He is on PPI Fluids, electrolytes, nutrition: No fluids, lites will be monitored and replete as necessary.?? He can continue on a regular diet ?? Code status: Full ?? Case will be discussed with the attending, Dr. Raphael ?? Chao Mendosa DO PGY-5 ?? The patient seen and examined on this date. The case reviewed in detail with admitting fellow onthis date. I reviewed and agree as above. Dvt, high risk. Carlton Raphael MD Problem List/Past Medical History Ongoing CAD (coronary artery disease), LAD CHF (congestive heart failure) Diabetes mellitus type 2, insulin Essential hypertension Hyperlipidemia Iron deficiency anemia Neuropathy Old myocardial infarction, NSTEMI, s/p ZORA ANUJA on CPAP Pericardial effusion, s/p pericardiocentesis Prostate cancer Pulmonary HTN Procedure/Surgical History ???Cardiac catheterization (02/10/2019)???Echocardiogram (09/16/2018)???Cardiac catheterization w/ZORA to OTW (08/01/2013)???Endoscopy (2011)???Pericardiocentesis w/pericardial window (2005)???Triggerfinger release of right middle finger Medications Inpatient Acetaminophen Tablet, 650 mg, By Mouth, Every 4 hours, PRN Aldactone 100 mg oral tablet, 100 mg, By Mouth, Daily aspirin 81 mg oral delayed release tablet, 81 mg, By Mouth, Daily bethanechol 25 mg oral tablet, 25 mg, By Mouth, 2 times a day Coreg 6.25 mg oral tablet, 6.25 mg, By Mouth, 2 times a day Dapagliflozin Tablet, 10 mg, By Mouth, Daily Docusate Sodium Capsule, 100 mg= 1 capsule, By Mouth, 2 times a day, PRN Enoxaparin Inj, 40 mg= 0.4 mL, Subcutaneous Injection, Daily ferrous sulfate 325 mg oral enteric coated tablet, 325 mg, By Mouth, Daily finasteride 5 mg oral tablet, 5 mg, By Mouth, Daily gabapentin 400 mg oral capsule, 400 mg, By Mouth, 3 times a day Insulin LISPRO Sliding Scale, 2-10 units, Subcutaneous Injection, 3 times a day before meals Lasix 40 mg oral tablet, 40 mg, By Mouth, Daily Levemir Inj, 10 units= 0.1 mL, Subcutaneous Injection, Daily at bedtime Lipitor 80 mg oral tablet, 80 mg, By Mouth, Daily Melatonin Tablet, 3 mg, By Mouth, Daily at bedtime, PRN MiraLax Powder, 17 Gm= 1 pack/packet, By Mouth, Daily, PRN NaCL 0.9% Flush, 3 mL, IV Push, Every 8 hours NaCL 0.9% Flush, 3 mL, IV Push, Every 8 hours, PRN pantoprazole 40 mg oral delayed release tablet, 40 mg, By Mouth, Daily Robitussin DM Liquid, 10 mL, By Mouth, Every 4 hours, PRN Senna Tablet, 8.6 mg= 1 tablet, By Mouth, 2 times a day, PRN Simethicone Tablet, 80 mg, Chew, 3 times a day, PRN tamsulosin 0.4 mg oral capsule, 0.4 mg, By Mouth, Daily Home Aldactone 100 mg oral tablet, 100 mg= 1 tablet, By Mouth, Daily aspirin 81 mg oral delayed release tablet, 81 mg= 1 tablet, By Mouth, Daily bethanechol 25 mg oral tablet, 25 mg= 1 tablet, By Mouth, 2 times a day Blood Pressure Monitor, See Instructions clopidogrel 75 mg oral tablet, 75 mg= 1 tablet, By Mouth, Daily Coreg 6.25 mg oral tablet, 6.25 mg= 1 tablet, By Mouth, 2 times a day Farxiga 10 mg oral tablet, 10 mg= 1 tablet, By Mouth, Daily ferrous sulfate 325 mg oral enteric coated tablet, 325 mg= 1 tablet, By Mouth, Daily finasteride 5 mg oral tablet, 5 mg= 1 tablet, By Mouth, Daily gabapentin 400 mg oral capsule, 400 mg= 1 capsule, By Mouth, 3 times a day lactulose 10 gm/15 ml oral syrup, See Instructions, PRN Lasix 40 mg oral tablet, 40 mg= 1 tablet, By Mouth, Daily lidocaine 5% topical film, 1 patch, Topically, Daily Lipitor 80 mg oral tablet, 80 mg= 1 tablet, By Mouth, Daily midodrine 10 mg oral tablet, 10 mg= 1 tablet, By Mouth, 3 times a day, 2 refills Narcan 4 mg/0.1 mL nasal spray, 4 mg, Nares, Both, Once, PRN NovoLOG FlexTouch, See Instructions pantoprazole 40 mg oral delayed release tablet, 40 mg= 1 tablet, By Mouth, Daily tamsulosin 0.4 mg oral capsule, 0.4 mg= 1 capsule, By Mouth, Daily Tresiba FlexTouch, 10 units, Subcutaneous Injection, Daily at bedtime Trulicity Pen 0.75 mg/0.5 mL subcutaneous solution, 0.75 mg= 0.5 mL, Subcutaneous Injection, Every week Zetia 10 mg oral tablet, 10 mg= 1 tablet, By Mouth, Daily Allergies Contrast Dye??(Unknown) Latex??(Rash) TiZANidine Hydrochloride??(hallucination) lisinopril??(throat swelling) pregabalin??(hallucination) Social History Alcohol Use: Never. Electronic Cigarette/Vaping Electronic Cigarette Use: Never. Home/Environment Living situation: Home/Independent. Lives with: Spouse. Substance Abuse Use: Never. Tobacco Use: Never (less than 100 in lifetime). Family History None reported Immunizations Vaccine Date Status SARS-CoV-2 (COVID-19) mRNA-1273 vaccine 10/11/2021 Recorded SARS-CoV-2 (COVID-19) mRNA-1273 vaccine 11/14/2020 Recorded SARS-CoV-2 (COVID-19) mRNA-1273 vaccine 10/17/2020 Recorded pneumococcal 23-valent vaccine 07/16/2020 Recorded tetanus-diphtheria toxoids (Td) 06/16/2019 Recorded EKG study * Event Display: EKG Authored Date: [id number] * Event Display: ECG 12-Lead Authored Date: Please click on pdf link to open report * Event Display: ECG 12-Lead Authored Date: Ventricular Rate: 80 BPM Atrial Rate: 72 BPM QRS Duration: 108 ms Q-T Interval: 412 ms QTC Calculation(Bazett): 475 ms R Tanana: -46 degrees T Tanana: 129 degrees Ventricular-paced rhythm with occasional AV dual-paced complexes Abnormal ECG When compared with ECG of 11-JUL-2023 20:15, MANUAL COMPARISON REQUIRED, DATA IS UNCONFIRMED Confirmed by SANDEEP BARRAGAN MD ([id number]) on 07/17/2023 8:26:49 AM [place]: SANDEEP BARRAGAN MD Heart * Event Display: Echocardiogram - Complete Authored Date: Transthoracic Echocardiography Report (TTE) Patient Demographics Patient Name GILLES WRIGHT Date of Study 07/16/2023 Corporate Gender Male Facility Race Ethnicity Date of 1945 Height: 68.9 inches Age 78 year(s) Weight: 194.01 pounds Accession Number [id number] BSA: 2.04 m2 Room Number [id number] BMI: 28.73 kg/m2 Referring Physician Osorio Tang MD Interpreting Leslie Wilkerson MD Not on Staff Physician Referring Senior Javascript Developer eDyvi Medina RDJAMAICA Indications Bacteremia. Clinical History H/O TAVR CAD PACEMAKER DM CHF HTN ANUJA Study Data Type of Study TTE procedure:Echo Complete-Doppler, Colorflow, M-Mode. Study Date07/16/2023 Start Time: 11:41 AM Study Location: [facility] Adult Echo Study Status: Bedside Patient Status: Routine Technical Quality: Adequate Blood Pressure:118/60 mmHg EKG: Sinus with ectopy HR: 69 bpm Allergies - Contrast. - Lisinopril. - Latex. - Other allergy:(pregabalin & tinidine HCL). 2D Measurements LV Diastolic Dimension: 5.1 cm LV Systolic Dimension: 3.2 cm LV Septum Diastolic: 1.21 cm LV PW Diastolic: 1.26 cm LA Dimension: 4.8 cm LA ESV (BP):116 ml LVOT Stroke Volume: 122.2 ml LA ESV Index: 57 ml/m2 Stroke Volume Index59.9 ml/m2 LVOT: 2.1 cm Cardiac Index:4.13 l/min/m2 Ascending Aorta:3.6 cm Doppler Measurements AV Peak Velocity: 337 cm/s MV Peak E-Wave: 128 cm/s AV Peak Gradient: 45.43 mmHg MV Peak A-Wave: 122 cm/s AV Mean Gradient: 26 mmHg MV E/A Ratio: 1.05 AV VTI:76.9 cm MV P1/2t: 73 msec LVOT Peak Velocity: 123 cm/s MV Mean Gradient: 5 mmHg LVOT VTI35.3 cm MV Area (continuity): 1.9 cm2 AV Area (Continuity):1.59 cm2 MV Deceleration Time: 251 msec MV Area (PHT): 3.01 cm2 TR Velocity:298 cm/s TR Gradient:35.52 mmHg PV Peak Velocity: 137 cm/s PV Peak Gradient: 7.51 mmHg E' Septal Velocity: 5.55 cm/s E' Lateral Velocity: 7.4 cm/s E/Med E':23.19492 E/Lat E':17.2973 Cardiac Anatomy Left Ventricle/Interventricular Septum The left ventricle is normal in size. There is mild left ventricular hypertrophy. Normal left ventricular function. Visually estimated LVEF 65-70%. There are no definite wall motion abnormalities seen in limited views. Moderate diastolic dysfunction. Left Atrium/Interatrial Septum The left atrium is dilated. Aortic Valve There is a well-seated bioprosthetic aortic valve (26 mm Leone WILVER 3 ultra). There is no significant paravalvular regurgitation. Peak velocity across the prosthetic valve is 3.4 m/s, DI 0.45, AT < 100 ms, EOA index 0.8 consistent with high flow state. Mitral Valve Mildly thickened mitral valve leaflets. Trace regurgitation. Aorta The aortic root is poorly visualized. Right Ventricle The right ventricle is poorly visualized. Function appears preserved. Right Atrium The right atrium is dilated. Pulmonic Valve The pulmonic valve is grossly normal. There is trace regurgitation. Tricuspid Valve Grossly normal tricuspid valve leaflets. Trace tricuspid regurgitation. Pumonary Artery The pulmonary artery systolic pressure estimation is within normal limits. Venous Structures The inferior vena cava is normal in size. Pericardium/Extracardiac There is no pericardial effusion. Summary - The left ventricle is normal in size. There is mild left ventricular hypertrophy. Normal left ventricular function. Visually estimated LVEF 65-70%. There are no definite wall motion abnormalities seen in limited views. Moderate diastolic dysfunction. -The right ventricle is poorly visualized. Function appears preserved. -Biatrial dilation. -There is a well-seated bioprosthetic aortic valve (26 mm Leone WILVER 3 ultra). There is no significant paravalvular regurgitation. Peak velocity across the prosthetic valve is 3.4 m/s, DI 0.45, AT < 100 ms, EOA index 0.8 consistent with high flow state. -No pericardial effusion Impressions There is no definite evidence of mobile echodensities suspicious for vegetation in this below average quality study. Pursue LISANDRA for better evaluation of the valves if clinically indicated. Comparison Comparison is made to the study of January 27, 2023. No significant change. Signature * Event Display: Echocardiogram - Complete Authored Date: Hospital Progress note * Royal ROONEY, Soo: PERFORM, MODIFY, MODIFY, MODIFY Event Display: Progress Note Hospital Authored Date: Patient: ??GILLES WRIGHT ? Age:??78 Years?Sex:??Male?:??1945?? Subjective No acute overnight events. ?? Today's summary: ?Patient's outpatient antibiotic regimen was switched to penicillin??as this will make his discharge process easier, and he will??need to have that set up today, and will likely get discharged tomorrow. ?No new events??for today Review of Systems Negative except as mentioned above. Objective Vital Signs?? Temperature: 98.1 DegF (07/23/23 08:05:00) Temperature Route: Oral (07/23/23 08:05:00) Pulse Rate: 65 bpm (07/23/23 08:05:00) Respiratory Rate: 18 br/min (07/23/23 08:28:00) Systolic Blood Pressure: 101 mm Hg (07/23/23 08:05:00) Diastolic Blood Pressure: 69 mm Hg (07/23/23 08:05:00) Blood pressure sites: Arm, left (07/23/23 08:05:00) Mean Arterial Pressure: 80 mm Hg (07/23/23 08:05:00) Pulse Pressure: 32 mm Hg (07/23/23 08:05:00) Oxygen Saturation: 96 % (07/23/23 08:05:00) Mode of Delivery (Oxygen): Room air (07/23/23 08:05:00) Early Warning Score: 3 (07/23/23 08:29:55) ? Intake/Output? 07/13 15:55 07/23 07:00 07/22 07:00 07/21 07:00 07/20 07:00 ?? 07/23 11:03 07/23 11:03 07/23 06:59 07/22 06:59 07/21 06:59 Intake ? 6867 ?236 ?300 ?240 ? 1200 Output ?34554 ?0 ?750 ?601 ? 1200 Net Total ?-4115 ?236 ? -450 ? -361 ?0 ? Urine Count ? 16 ?2 ?0 ?3 ?2 ? Physical Exam General:??No acute distress Respiratory:??Clear to auscultation bilaterally, no increased work of breathing Cardiovascular:??Normal rate, regular rhythm Abdomen:??No tenderness Neurologic:??Alert & Oriented Psychiatric:??Normal mood/affect Assessment/Plan Gilles is an 78-year-old patient with decompensated cirrhosis with known ascites and esophageal varices,??severe aortic stenosis status post TAVR, complete heart block status post pacemaker,??lumbarfusion hardware placed 5 years prior who was admitted??prior in January with generalized weakness and neck pain found to have strep bacteremia??and epidural abscess with C5-C6 osteomyelitis treated with??6 weeks of Ceftriaxone and a repeat nuclear medicine tagged white blood cell scan was completed as an outpatient??with no foci of infection.??He presented now to the hospital with a few days of generalized weakness and inability to walk for few days with significant lower extremity weakness as wellas bladder incontinence found to have enterococcal faecalis bacteremia with unclear source, startedon??Ampicillin with significant improvement in his??symptoms.??Repeat blood cultures from 07/14 negative for growth however blood cultures collected on 07/16 showing positive for gram- positive cocci. TTE negative for vegetations; however, patient underwent??cardiac CT??which revealed vegetations. Ceftriaxone is being added to the patient's antibiotic regimen. Cardiology and cardiac surgery??have been consulted, discussed with infectious disease, surgical team,??patient's family??that in view of??negative blood cultures currently??and??need for??continuation of chronic??suppressive??antibiotic therapy??regardless of??pacemaker extraction??it is reasonable??to wait??currently.?? If blood cultures continue to stay negative??on antibiotic therapy??will avoid??additional invasive procedures. Ifpatient has positive blood cultures in future??please call cardiology back.??Cardiology will have to revisit??transvenous pacemaker removal??and leadless pacemaker insertion at that time. For the time being, patient will continue on ampicillin and ceftriaxone??for 6 weeks starting??07/18. ??He??had a slight kidney injury, which is likely??prerenal in nature, and thus his??urine lactone and furosemide were held, with improvement in his Cr??back to baseline on 07/22.??His hemoglobin dropped below 7on 2 separate occasions and he has received a total of??1.5 units??of blood over the past 48 hours,however repeat Hgb 07/22 is stable with an Hgb of 7.9. His cultures from 07/18 have remained negative. He got a PICC line placed on 07/21 for IV antibiotics upon DC.?? He was supposed to be??discharged y , however??this was not done as there??were some technical issues with??his outpatient antibiotic regimen, however??the regimen was switched to penicillin, ampicillin today,??which will make this problem much easier, the patient will likely get discharged tomorrow. ?? Lower Extremity Weakness L>R Urinary Incontinence Lumbar Stenosis Enterococcal faecalis bacteremia Infective endocarditis H/O Streptococcus bacteremia and epidural abscess with C5-C6 osteomyelitis in 01/2023 Presented with LE weakness, L worse than R, RUQ pain with increased abdominal distension, and urinary incontinence for the last few days. Of note, does have mild??LE weakness at baseline. BCx positive for Enterococcus faecalis on 07/12; given one dose of Vancomycin on 07/13 and started on Ampicillin ?? Diagnostic para negative for SBP, CTAP unremarkable, MRI lumbar spine no evidence of infection but??has degenerative lumbar spine stenosis. MRI cervical spine with??chronic sequelae of prior discitis/osteomyelitis and central disc extrusion at C6-7 results in focal severe spinal stenosis with cord compression, but??fairly similar to prior. TTE??without??evidence of gross vegetations, LISANDRA unable to be obtained due to history of varices,??but cardiac CT is positive for vegetations ?? BCx 07/14 negative, however BCx 07/16 Repeat blood cultures obtained??positive for Enterococcus faecalis, thus ceftriaxone added to regimen. ?? Patient is feeling much improved since starting abxs and is no longer having LE weakness or urinaryincontinence. ? Plan: - Cardiology ([place])??consulted for consideration of??replacement of??pacemaker along with CT surg in setting of infective endocarditis - As of 07/19: Cardiology's plan is as follows: No clear??evidence of infection??of the pacemaker onCT scan. Cardiothoracic surgery??feels??TAVR valve is likely not infected??and in view of??high risk surgery recommend??conservative management with regards to TAVR valve. Discussed with infectious disease, surgical team,??patient's family??that in view of??negative blood cultures currently??and??need for??continuation of chronic??suppressive??antibiotic therapy??regardless of??pacemaker extractio n??it is reasonable??to wait??currently.?? If blood cultures continue to stay negative??on antibiotic therapy??will avoid??additional invasive procedures. If patient has positive blood cultures in future??please call cardiology back.??Cardiology will have to revisit??transvenous pacemaker removal??and leadless pacemaker insertion at that time. - Continue Ampicillin 2g q6hrs (07/14/23), Ceftriaxone 2g IV q12hrs (07/17/23). Patient had a PICC line placed on 07/22. He need 6 weeks of antibiotics starting 07/18 - Seen by PT, recommending home w/ services ? Decompensated liver cirrhosis 2/2 history of alcohol use disorder Esophageal varices Ascites Thrombocytopenia Diagnosed with cirrhosis in 2013, history of??heavy alcohol use but has sober since 2013. Follows with??Dr. Burns ([place]); undergoes regular HCC screening as well as variceal screening. Last underwent EGD about a year ago (?2021)??where he was noted to have varices which needed banding with plan to repeat in 01/2023- was admitted here for osteomyelitis/bacteremia as above, unable to make apt. Seen by our GI team back in January for consideration of??EGD for esophageal variceal screen prior to LISANDRA to assess for??endocarditis- GI had recommended??esophageal variceal screening AFTER LISANDRA; neitherended up happening- felt patient was too high of a risk. No known history of hepatic encephalopathy but is prescribed Lactulose per home medication list- does not take this medication??at home. Given ascites was placed/discharged on??Lasix and Spironolactone during last hospitalization in 01/2023,??reports he is compliant with these medications. Is on home Carvedilol for cardiac indications but also for variceal bleed ppx. S/p paracentesis on 07/12- negative for SBP. Having regular bowel movements 1-2 a day, not on Lactulose. No signs or??concerns of hepatic encephalopathy.?? Plan: - Holding home spironolactone and Lasix??due to EMMANUEL as below. Restart on Friday 07/27 - Continue home Coreg 6.25mg PO BID - FU with GI outpatient, overdue for EGD to screen for varices ? EMMANUEL on CKD Stage 3 Baseline Cr 1.3, eGFR of 45. Creatinine of 1.6 on 07/13, meets definition for EMMANUEL. Up to a high of 1.7 on 07/15, up trended to??1.8 EMMANUEL could be in the setting of infection/dehydration.?? He has not been hemodynamically unstable, however he is on multiple medications that would worsen his dehydration??such as spironolactone and furosemide. FeNa confirming prerenal EMMANUEL Plan: - Encourage PO fluid intake, low Na diet - Avoid nephrotoxic medications, renally dose meds as appropriate - Trend with daily BMP - Hold spironolactone and furosemide??until Friday 07/27 ? Acute on Chronic Normocytic Anemia History of Iron Deficiency Anemia Anemia of Chronic Disease Hgb baseline seems to be around 7, dropped to 6.8 on 07/20, received 2.5 units of blood. ??Patient does not have any source of bleeding and this is likely due to multiple drug blood draws in the setting of being acutely ill and hospitalized. ??Hgb dropped again this morning to 6.6, received 1 unit of blood. Plan: ??? Ordered hemolysis labs ??? Monitor Hgb daily ?? Chronic Medical Conditions: - Severe aortic stenosis s/p TAVR / Complete heart block??s/p pacemaker / CAD/ HTN / HLD: Continue home ASA, Carvedilol, Farxiga, Atorvastatin; resumed Plavix on 07/16 - BPH / H/O Prostate Cancer s/p Radiation and Hormonal Therapy in : Continue home Finasteride, Bethanechol, Tamsulosin - Chronic pain: Continue home Gabapentin, PRN Tylenol not to exceed >2g/24hrs; avoid NSAIDs - H/O hypotension: Patient is prescribed Midodrine for SBP below 120, however, says he takes it every day. SBP has been w/in appropriate range-??have been holding home Midodrine for now but per patient request ordered Midodrine 10mg PO TID PRN for SBP <110 (feels unwell when BP is below this) - GERD: Continue home Pantoprazole - ANUJA: Continue CPAP - T2DM: Is prescribed Aspartate ISS??2-25U TID before meals and Tresiba 60U daily at bedtime, Is also on Farxiga given h/o CAD.?? Patient is receiving 10 units of Tresiba??inpatient and his sugars are controlled, this??regimen might need to be discussed with the PCP ?? [employer]: Code Status: FULL DVT Prophylaxis: Heparin SubQ TID Diet: Cardiac w/ carb counting OMN:??Medically cleared Dispo:??Discharge??home tomorrow ?? Patient has been??seen and discussed with Dr. Osorio Vann??MD [facility] ? * Osorio ROONEY, Kitty: JEFF Ac MD, Kitty: MODIFY, MODIFY, MODIFY, MODIFY, MODIFY, MODIFY, MODIFY, MODIFY, MODIFY, MODIFY, MODIFY, MODIFY Event Display: Progress Note Hospital Authored Date: Patient: ??GILLES WRIGHT ? Age:??78 Years?Sex:??Male?:??1945?? Patient Information Discharge Location: [facility] Primary Care Physician: Vita ROONEY, Maninder Sanon Admit Date/Time: 07/13/23 15:55 Discharge Disposition Discharge Disposition: Home with Home Health Discharge Diagnosis Primary Diagnosis: Generalized weakness (R53.1) Lower Extremity Weakness L>R Urinary Incontinence ? 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5 mg oral tablet)?TAKE 1 TABLET BY MOUTH TWICE DAILY NEEDED FOR ANXIETY Ampicillin (Ampicillin IVPB)?2?gram?IVPB?Every 6 hours Aspirin (aspirin 81 mg oral delayed release tablet)?81?Milligram?1?tablet?By Mouth?Daily?Do not start aspirin until 06/16/2022 Atorvastatin (Lipitor 80 mg oral tablet)?1?tab(s)?80?Milligram?By Mouth?Daily Bethanechol (bethanechol 25 mg oral tablet)?25?Milligram?1?tablet?By Mouth?2 times a day Carvedilol (Coreg 6.25 mg oral tablet)?6.25?Milligram?1?tablet?By Mouth?2 times aday?Hold if systolic blood pressure is below 120 mmHg and/or heart rate is below 55 [id number] Ceftriaxone (ceftriaxone 2 gm injectable powder for injection)?2?gram?IVPB?Every 12 hours Clopidogrel (clopidogrel 75 mg oral tablet)?75?Milligram?1?tablet?By Mouth?Daily dapagliflozin (Farxiga 10 mg oral tablet)?1?tab(s)?10?Milligram?By Mouth?Daily dulaglutide (Trulicity Pen 0.75 mg/0.5 mL subcutaneous solution)?0.5?Milliliter?0.75?Milligram?Subcutaneous Injection?Every week?EVERY THURSDAY Durable Medical Equipment (Blood Pressure Monitor)?See Instructions?Blood pressure cuffICD: I10 Ezetimibe (Zetia 10 mg oral tablet)?1?tab(s)?10?Milligram?By Mouth?Daily Ferrous Sulfate (ferrous sulfate 325 mg oral enteric coated tablet)?325?Milligram?1?tablet?By Mouth?Daily Finasteride (finasteride 5 mg oral tablet)?1?tab(s)?5?Milligram?By Mouth?Daily Folic Acid (folic acid 0.8 mg oral tablet)?TAKE 1 TABLET BY MOUTH EVERY DAY Gabapentin (gabapentin 300 mg oral capsule)?300?Milligram?1?capsule?By Mouth?2 times a day Insulin Aspart (NovoLOG FlexTouch)?See Instructions?2-25 units Subcutaneous Injection 3 timesa day before meals and bedtime insulin degludec (Tresiba FlexTouch 200 units/mL subcutaneous solution)?INJECT 60 UNITS UNDER THE SKIN AT BEDTIME Lactulose (lactulose 10 gm/15 ml oral syrup)?See Instructions?as needed?Other?Take 15 mL as needed for constipation, please maintain daily bowel movement, hold for excessive loose stool or diarrhea (more than 3 times a day). Midodrine (midodrine 10 mg oral tablet)?1?tab(s)?10?Milligram?By Mouth?3 times a day?To help maintain systolic blood pressure above 110-120 mmHg Pantoprazole (pantoprazole 40 mg oral delayed release tablet)?1?tab(s)?40?Milligram?By Mouth?Daily Tamsulosin (tamsulosin 0.4 mg oral capsule)?0.4?Milligram?1?capsule?By Mouth?Daily?(LAST FILLED 10/01/22) ? Medications Started Ampicillin (Ampicillin IVPB)?2?gram?IVPB?Every 6 hours Ceftriaxone (ceftriaxone 2 gm injectable powder for injection)?2?gram?IVPB?Every 12 hours Medications Discontinued Furosemide - Only held for 2 days due to EMMANUEL Spironolactone - only held for 2 days due to EMMANUEL Doses Changed Gabapentin (gabapentin 300 mg oral capsule)?300?Milligram?1?capsule?By Mouth?2 times a day Allergies Allergies ?(Active and Proposed Allergies Only) TiZANidine Hydrochloride? (Severity: Unknown severity, Onset: Unknown) ?Reactions: hallucination pregabalin? (Severity: Unknown severity, Onset: Unknown) ?Reactions: hallucination lisinopril? (Severity: Unknown severity, Onset: Unknown) ?Reactions: throat swelling ?Comments: throat swelling Latex? (Severity: Unknown severity, Onset: Unknown) ?Reactions: Rash ? Future Appointments Thursday 10:20 AM EST ?? With: Harper ROONEY, Cole Culp Where: [facility] Infectious Disease [address] [place] [address]- Status: Pending Hospital Course Gilles is an 78-year-old patient with decompensated cirrhosis with known ascites and esophageal varices,??severe aortic stenosis status post TAVR, complete heart block status post pacemaker,??lumbarfusion hardware placed 5 years prior who was admitted??prior in January with generalized weakness and neck pain found to have strep bacteremia??and epidural abscess with C5-C6 osteomyelitis treated with??6 weeks of Ceftriaxone and a repeat nuclear medicine tagged white blood cell scan was completed as an outpatient??with no foci of infection.??He presented now to the hospital with a few days of generalized weakness and inability to walk for few days with significant lower extremity weakness as wellas bladder incontinence found to have enterococcal faecalis bacteremia with unclear source, startedon??Ampicillin with significant improvement in his??symptoms.??Repeat blood cultures from 07/14 negative for growth however blood cultures collected on 07/16 showing positive for gram- positive cocci. TTE negative for vegetations; however, patient underwent??cardiac CT??which revealed vegetations. Ceftriaxone is being added to the patient's antibiotic regimen. Cardiology and cardiac surgery??have been consulted, discussed with infectious disease, surgical team,??patient's family??that in view of??negative blood cultures currently??and??need for??continuation of chronic??suppressive??antibiotic therapy??regardless of??pacemaker extraction??it is reasonable??to wait??currently.?? If blood cultures continue to stay negative??on antibiotic therapy??will avoid??additional invasive procedures. Ifpatient has positive blood cultures in future??please call cardiology back.??Cardiology will have to revisit??transvenous pacemaker removal??and leadless pacemaker insertion at that time. For the time being, patient will continue on ampicillin and ceftriaxone??for 6 weeks starting??07/18. ??He??had a slight kidney injury, which is likely??prerenal in nature, and thus his??urine lactone and furosemide were held, with improvement in his Cr??back to baseline on 07/22.??His hemoglobin dropped below 7on 2 separate occasions and he has received a total of??1.5 units??of blood over the past 48 hours,however repeat Hgb 07/22 is stable with an Hgb of 7.9. His cultures from 07/18 have remained negative. He got a PICC line placed on 07/21 for IV antibiotics upon DC. ?? Lower Extremity Weakness L>R Urinary Incontinence Lumbar Stenosis Enterococcal faecalis bacteremia Infective endocarditis H/O Streptococcus bacteremia and epidural abscess with C5-C6 osteomyelitis in 01/2023 Presented with LE weakness, L worse than R, RUQ pain with increased abdominal distension, and urinary incontinence for the last few days. Of note, does have mild??LE weakness at baseline. BCx positive for Enterococcus faecalis on 07/12; given one dose of Vancomycin on 07/13 and started on Ampicillin ?? Diagnostic para negative for SBP, CTAP unremarkable, MRI lumbar spine no evidence of infection but??has degenerative lumbar spine stenosis. MRI cervical spine with??chronic sequelae of prior discitis/osteomyelitis and central disc extrusion at C6-7 results in focal severe spinal stenosis with cord compression, but??fairly similar to prior. TTE??without??evidence of gross vegetations, LISANDRA unable to be obtained due to history of varices,??but cardiac CT is positive for vegetations ?? BCx 07/14 negative, however BCx 07/16 Repeat blood cultures obtained??positive for Enterococcus faecalis, thus ceftriaxone added to regimen. ?? Patient is feeling much improved since starting abxs and is no longer having LE weakness or urinaryincontinence. ?? Recommendations: - Cardiology ([place])??consulted for consideration of??replacement of??pacemaker along with CT surg in setting of infective endocarditis - As of 07/19: Cardiology's plan is as follows: No clear??evidence of infection??of the pacemaker onCT scan. Cardiothoracic surgery??feels??TAVR valve is likely not infected??and in view of??high risk surgery recommend??conservative management with regards to TAVR valve. Discussed with infectious disease, surgical team,??patient's family??that in view of??negative blood cultures currently??and??need for??continuation of chronic??suppressive??antibiotic therapy??regardless of??pacemaker extractio n??it is reasonable??to wait??currently.?? If blood cultures continue to stay negative??on antibiotic therapy??will avoid??additional invasive procedures. If patient has positive blood cultures in future??please call cardiology back.??Cardiology will have to revisit??transvenous pacemaker removal??and leadless pacemaker insertion at that time. - Continue Ampicillin 2g q6hrs (07/14/23), Ceftriaxone 2g IV q12hrs (07/17/23). Patient had a PICC line placed on 07/22. He need 6 weeks of antibiotics starting 07/18 - Seen by PT, recommending home w/ services ? 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 Follows with??Dr. Burns ([place]); undergoes regular HCC screening as well as variceal screening. Last underwent EGD about a year ago (?2021)??where he was noted to have varices which needed banding with plan to repeat in 01/2023- was admitted here for osteomyelitis/bacteremia as above, unable to make apt. Seen by our GI team back in January for consideration of??EGD for esophageal variceal screen prior to LISANDRA to assess for??endocarditis- GI had recommended??esophageal variceal screening AFTER LISANDRA; neitherended up happening- felt patient was too high of a risk. No known history of hepatic encephalopathy but is prescribed Lactulose per home medication list- does not take this medication??at home. Given ascites was placed/discharged on??Lasix and Spironolactone during last hospitalization in 01/2023,??reports he is compliant with these medications. Is on home Carvedilol for cardiac indications but also for variceal bleed ppx. S/p paracentesis on 07/12- negative for SBP. Having regular bowel movements 1-2 a day, not on Lactulose. No signs or??concerns of hepatic encephalopathy.? Recommendations: - Holding home spironolactone and Lasix??due to EMMANUEL as below. Restart in 2 days - Continue home Coreg 6.25mg PO BID - FU with GI outpatient, overdue for EGD to screen for varices ? EMMANUEL on CKD Stage 3 - Resolved Baseline Cr 1.3, eGFR of 45. Creatinine of 1.6 on 07/13, meets definition for EMMANUEL. Up to a high of 1.7 on 07/15, up trended to??1.8 EMMANUEL could be in the setting of infection/dehydration.?? He has not been hemodynamically unstable, however he is on multiple medications that would worsen his dehydration??such as spironolactone and furosemide. FeNa confirming prerenal EMMANUEL Recommendations: - Encourage PO fluid intake, low Na diet - Hold spironolactone and furosemide for 2 more days then restart ? Acute on Chronic Normocytic Anemia - Stable History of Iron Deficiency Anemia Anemia of Chronic Disease Hgb baseline seems to be around 7, dropped to 6.8 on 07/20, received 2.5 units of blood. ??Patient does not have any source of bleeding and this is likely due to multiple drug blood draws in the setting of being acutely ill and hospitalized. ??Hgb dropped again??07/21 to 6.6, received 1 unit of blood. Hemolysis labs negative. Hgb stable at 7.9 on 07/22 Recommendations: ??? Follow up with PCP outpatient ?? Chronic Medical Conditions: - Severe aortic stenosis s/p TAVR / Complete heart block??s/p pacemaker / CAD/ HTN / HLD: Continue home ASA, Carvedilol, Farxiga, Atorvastatin; resumed Plavix on 07/16 - BPH / H/O Prostate Cancer s/p Radiation and Hormonal Therapy in : Continue home Finasteride, Bethanechol, Tamsulosin - Chronic pain: Continue home Gabapentin, (dose decreased to 300mg BID given CKD),??PRN Tylenol notto exceed >2g/24hrs; avoid NSAIDs - H/O hypotension: Patient is prescribed Midodrine for SBP below 120, however, says he takes it every day. SBP has been w/in appropriate range-??have been holding home Midodrine for now but per patient request ordered Midodrine 10mg PO TID PRN for SBP <110 (feels unwell when BP is below this) - GERD: Continue home Pantoprazole - ANUJA: Continue CPAP at home - T2DM: Is prescribed Aspartate ISS??2-25U TID before meals and Tresiba 60U daily at bedtime, Is also on Farxiga given h/o CAD. Objective Vital Signs?? Temperature: 97.8 DegF (07/22/23 08:00:00) Temperature Route: Oral (07/22/23 08:00:00) Pulse Rate: 60 bpm (07/22/23 08:00:00) Respiratory Rate:??15 br/min??Low (07/22/23 08:17:00) Systolic Blood Pressure: 128 mm Hg (07/22/23 08:00:00) Diastolic Blood Pressure:??49 mm Hg??Low (07/22/23 08:00:00) Blood pressure sites: Arm, left (07/22/23 08:00:00) Pulse Pressure: 79 mm Hg (07/22/23 08:00:00) Oxygen Saturation: 97 % (07/22/23 08:00:00) Mode of Delivery (Oxygen): Room air (07/22/23 08:00:00) Early Warning Score: 5 (07/22/23 08:19:26) ? . Physical Exam General:??No acute distress Respiratory:??Clear to auscultation bilaterally, no increased work of breathing Cardiovascular:??Normal rate, regular rhythm Abdomen:??No tenderness Neurologic:??Alert & Oriented Psychiatric:??Normal mood/affect Consultants Husam ROONEY, Александр Reilly - Infectious??Disease Harper ROONEY, Cole Culp - Infectious Disease Bob ROONEY, Adonay - Cardiology Follow-Up Appointments Added Follow Up ?Time Frame ?Comments Vita ROONEY, Maninder Sanon?1 to 2 weeks Patient Instructions You had a mild kidney injury during your hospital stay, which was likely due to dehydration from not drinking enough fluids and also being on medicattions that would make you even more dehydrated, like the lasix and spironolactone. We held these two medications, and your kidney function is back to your normal. Please do not take them for the next two days, try to drink enough fluids, and then restart both of them again. Post Discharge Care Diet: ??Cardiac diet ?? Activity: ??As tolerated ?? Code Status: ??Full Resuscitation ?? Home Health Face to Face *Denotes mandatory kramer ?? *I certify that this patient is under my care and that I or an allowed non- physician working with me had a face to face encounter with the patient on this date:??07/22/2023 09:27 ?? *The encounter with the patient was in whole, or in part, for the following medical condition, which is the primary diagnosis(es) for home health care:?? Bacteremia (R78.81) ? *Select the indications for the discipline/s that are being arranged for this patient. Nursing (select all that apply): [_] None [_] Medication management (reconciliation, teaching)?? [_] Chronic disease management?? [_] Wound care and treatment?? [_] Home safety evaluation [x] Administer SQ/IM/IV medications?? [_] Cath care?? [_] Drain care?? [_] Trach or GT care?? Other _ Occupation Therapy (select all that apply): [_] None [_] ADL Management [_] Fall prevention training [_] Energy conservation [_] Cognitive training Other _ Physical Therapy (select all that apply): [_] None [_] Functional mobility training [_] Home exercise program to strengthen [_] Increase ROM?? [_] Falls prevention training [_] Home maintenance program for chronic disease Other _ Speech Therapy (select all that apply): [_] None [_] Swallow evaluation and training [_] Speech and language training [_] Cognitive training to process, organize, and/or recall information Other _ ? *Homebound due to (select all that apply): [_] Inability to leave home without assistance/supervision [_] Inability to ambulate without assistance [_] Pain [_] Decreased strength and endurance [_] Unsteady gait [_] Severe SOB and fatigue [_] Impaired transfers [_] Inability to negotiate stairs [_] Limited weight bearing [_] Mental status change? *Physician Signature:??LA ?? *By signing this, I certify that I have personally evaluated the patient and agree with the findings and recommendations as documented above. ? Results Discharge Labs BLOOD BANK Blood Type A Positive ()?? 07/20/2023 08:09 Antibody Screen Positive ()?? 07/20/2023 08:09 RBC Unit ID [id number] ()?? 07/21/2023 02:45 RBC Available PT ()?? 07/21/2023 02:45 Antibody Identification 1 Inconclusive [place] use SP XMs ()?? 07/20/2023 10:11 ? BLOOD COUNT & DIFF WBC 4.2 k/mm3 ()?? 07/22/2023 06:34 RBC 2.96 m/mm3 (Low)?? 07/22/2023 06:34 Hgb 7.9 Gm/dL (Low)?? 07/22/2023 06:34 Hct 25.4 % (Low)?? 07/22/2023 06:34 MCV 85.8 femtoliters ()?? 07/22/2023 06:34 MCH 26.7 pg (Low)?? 07/22/2023 06:34 MCHC 31.1 g/dL (Low)?? 07/22/2023 06:34 Platelet Count 109 k/mm3 (Low)?? 07/22/2023 06:34 RDW-SD 50.7 femtoliters (High)?? 07/22/2023 06:34 MPV 10.0 femtoliters ()?? 07/22/2023 06:34 Nucleated RBC (Automated) 0.0 #/100 WBC'S ()?? 07/22/2023 06:34 Abs. NRBC 0.0 k/mm3 ()?? 07/22/2023 06:34 Abs. Neut 5.8 k/mm3 ()?? 07/11/2023 18:07 Abs. Lymph 0.2 k/mm3 (Low)?? 07/11/2023 18:07 Abs. [place] 0.5 k/mm3 ()?? 07/11/2023 18:07 Abs. Eo 0.0 k/mm3 ()?? 07/11/2023 18:07 Abs. Baso 0.0 k/mm3 ()?? 07/11/2023 18:07 Neut % 88.0 % (High)?? 07/11/2023 18:07 Lymph % 3.5 % (Low)?? 07/11/2023 18:07 [place] % 7.0 % ()?? 07/11/2023 18:07 Eos % 0.2 % ()?? 07/11/2023 18:07 Baso % 0.5 % ()?? 07/11/2023 18:07 Retic Count 1.7 % ()?? 07/21/2023 00:48 Retic Count Corrected 0.8 % (Low)?? 07/21/2023 00:48 Retic Production Index 0.4 % (Low)?? 07/21/2023 00:48 Imm Gran 0.8 % ()?? 07/11/2023 18:07 Abs. Imm Gran 0.1 k/mm3 ()?? 07/11/2023 18:07 ? CARDIAC High Sensitivity Troponin (HSTnT) 101 ng/L (Critical)?? 07/11/2023 21:10 ? CHEM GENERAL Sodium 143 mmol/L ()?? 07/22/2023 06:34 Potassium 4.4 mmol/L ()?? 07/22/2023 06:34 Chloride 113 mmol/L (High)?? 07/22/2023 06:34 Bicarbonate Level 22 mmol/L ()?? 07/22/2023 06:34 Anion Gap 8 ()?? 07/22/2023 06:34 Glucose Level 98 mg/dL ()?? 07/22/2023 06:34 Glucose, POC 176 mg/dL (High)?? 07/21/2023 19:56 BUN 34 mg/dL (High)?? 07/22/2023 06:34 Creatinine-Blood 1.5 mg/dL (High)?? 07/22/2023 06:34 Estimated GFR Creatinine 47 ML/MIN/1.73 M2 ()?? 07/22/2023 06:34 Calcium 7.8 mg/dL (Low)?? 07/22/2023 06:34 Magnesium 2.1 mg/dL ()?? 07/19/2023 09:00 Protein, Total 5.6 Gm/dL (Low)?? 07/19/2023 09:00 Albumin 3.0 Gm/dL (Low)?? 07/19/2023 09:00 AG Ratio 1.2 ()?? 07/19/2023 09:00 LDH 229 units/L ()?? 07/21/2023 00:48 Alkaline Phosphatase 178 units/L (High)?? 07/19/2023 09:00 AST (SGOT) 31 units/L ()?? 07/19/2023 09:00 ALT (SGPT) 33 units/L ()?? 07/19/2023 09:00 Bilirubin, Total 0.4 mg/dL ()?? 07/19/2023 09:00 Lactate 1.2 mmol/L ()?? 07/11/2023 18:40 C-Reactive Protein 4.6 mg/dL (High)?? 07/15/2023 00:49 ?? COAG INR 1.3 (High)?? 07/17/2023 00:29 Protime (PT) 13.6 seconds (High)?? 07/17/2023 00:29 ?? FLUID STUDIES Color, Fluid YELLOW ()?? 07/13/2023 15:00 Appearance, Fluid CLEAR ()?? 07/13/2023 15:00 WBC, Fluid 279 per Cubic Millimeter ()?? 07/13/2023 15:00 RBC, Fluid <3000 per Cubic Millimeter ()?? 07/13/2023 15:00 Band, Fluid 3 % ()?? 07/13/2023 15:00 Seg, Fluid 54 % ()?? 07/13/2023 15:00 Lymph, Fluid 12 % ()?? 07/13/2023 15:00 [place], Fluid 11 % ()?? 07/13/2023 15:00 Baso, Fluid 1 % ()?? 07/13/2023 15:00 Other, Fluid 19 % ()?? 07/13/2023 15:00 T. Protein, Fluid 1.3 Gm/dL ()?? 07/13/2023 15:00 Albumin, Fluid 0.7 Gm/dL ()?? 07/13/2023 15:00 ?? HEME OTHER Sed Rate 15 mm/hr ()?? 07/15/2023 00:49 Hold Lavender Top SPECIMEN DISCARDED AFTER 24 HOURS. ()?? 07/16/2023 08:44 ?? IMMUNOLOGY GENERAL Haptoglobin 41 mg/dL ()?? 07/21/2023 00:48 ? MISC. CHEMISTRY Ammonia, Venous 25 ??mole/L ()?? 07/11/2023 21:10 Hold Gel Top SPECIMEN DISCARDED AFTER 1 WEEK ()?? 07/16/2023 08:44 ?? UA/URINALYSIS Appear/Color, Urine COLORLESS ()?? 07/11/2023 21:20 Specific [place], Urine 1.007 ()?? 07/11/2023 21:20 pH, Urine 5.5 ()?? 07/11/2023 21:20 Albumin, Urine NEGATIVE ()?? 07/11/2023 21:20 Glucose, Urine 3+ (Abnormal)?? 07/11/2023 21:20 Ketones, Urine NEGATIVE ()?? 07/11/2023 21:20 Bilirubin, Urine NEGATIVE ()?? 07/11/2023 21:20 Hemoglobin, Urine NEGATIVE ()?? 07/11/2023 21:20 Nitrite, Urine NEGATIVE ()?? 07/11/2023 21:20 Leukocyte, Urine NEGATIVE ()?? 07/11/2023 21:20 Urobilinogen NORMAL mg/dL ()?? 07/11/2023 21:20 WBC's, Urine <1 /HPF ()?? 07/11/2023 21:20 RBC's, Urine NONE SEEN /HPF ()?? 07/11/2023 21:20 Bacteria SLIGHT HPF (Abnormal)?? 07/11/2023 21:20 Squamous Epith <1 /HPF ()?? 07/11/2023 17:50 Hyaline Cast 1 LPF ()?? 07/11/2023 17:50 Mucus SLIGHT /LPF ()?? 07/11/2023 17:50 Hold Urine Culture Testing available 48 hours from time of collection. ()?? 07/11/2023 21:20 ?? URINE OTHER Creatinine, Urine Random 48.9 mg/dL ()?? 07/20/2023 16:22 Sodium, Urine Random 30 mmol/L ()?? 07/20/2023 16:22 Urea Nitrogen, Urine Random 425.1 mg/dL ()?? 07/20/2023 16:22 ? VIROLOGY Influenza A PCR NEGATIVE ()?? 07/11/2023 22:26 Influenza B PCR NEGATIVE ()?? 07/11/2023 22:26 RSV PCR NEGATIVE ()?? 07/11/2023 22:26 COVID-19 PCR Specimen Source NASAL ()?? 07/11/2023 22:26 COVID-19 PCR Result NEGATIVE ()?? 07/11/2023 22:26 ? Imaging(s) ?MRI Cervical Spine W+W/O Contrast ?? 07/15/2023 14:40??by Zo Nation MD ?IMPRESSION: 1. Chronic bony erosion in the opposing endplates at C5-6, with interval decrease in edema/fluid atthis site, consistent with chronic sequelae of prior discitis/osteomyelitis. Slight improvement in moderate central stenosis at this level due to decreased epidural phlegmon, with persistent chronic myelopathic cord signal change at this level. 2. Central disc extrusion at C6-7 results in focal severe spinal stenosis with cord compression andsubtle myelopathic cord signal abnormality, fairly similar to prior. ?Echocardiogram - Complete ?? 07/16/2023 11:41??by Leslie Wilkerson MD ?Summary ??- The left ventricle is normal in size. There is mild left ventricular ??hypertrophy. Normal left ventricular function. Visually estimated LVEF ??65-70%. There are no definite wall motion abnormalities seen in limited ??views. Moderate diastolic dysfunction. ??-The right ventricle is poorly visualized. Function appears preserved. ??-Biatrial dilation. ??-There is a well-seated bioprosthetic aortic valve (26 mm Leone WILVER 3 ??ultra). There is no significant paravalvular regurgitation. Peak velocity ??across the prosthetic valve is 3.4 m/s, DI 0.45, AT < 100 ms, EOA index 0.8 ??consistent with high flow state. ??-No pericardial effusion ?? Impressions ??There is no definite evidence of mobile echodensities suspicious for ??vegetation in this below average quality study. Pursue LISANDRA for better ??evaluation of the valves if clinically indicated. ?Knee 3 Views Left ?? 07/14/2023 15:36??by Gigi Lepe MD ?IMPRESSION: ?? 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 ?? No specific findings of osteomyelitis. WSN: [id number] ?CT Heart/Coronary/3D/Morph ?? 07/17/2023 15:25??by Lou Agrawal MD ?IMPRESSION: ?? Status post TAVR. Along the left cusp there is low density thickening measuring up to 4 mm, suggesting fibrosis, less likely vegetation, although a small vegetation cannot be entirely excluded. ?? Ascites. ?US Guide Abdomen Paracentesis w/Imaging ?? 07/13/2023 14:36??by Laura Phillips ? IMPRESSION: Successful ultrasound guided paracentesis with evacuation of 800 ml of clear yellow ascites. ?CT Abd/Pelvis W/ IV Contrast Only ?? 07/11/2023 19:42??by Gigi Lepe MD ?IMPRESSION: ?? Distended bladder. No definite acute abnormality. ?? Findings consistent with cirrhosis and mild ascites. Splenomegaly. ?? No other acute abnormality identified. ? Patient has been??seen and discussed with Dr. Osorio Vann??MD [facility] ?? 50??minutes spent on discharge * Kitty Ac MD: PERFORM Event Display: Progress Note Hospital Authored Date: [id number] Attending Attestation: I have seen and evaluated this patient.?? I have discussed the case and its management with the resident and agree with the findings and plan as documented in the resident???s note. * Soo Paige MD: PERFORM Event Display: Progress Note Hospital Authored Date: [id number] Unable to discharge patient given issues with outpatient antibiotics. Please accept this DC summaryas today's progress note. * Michelle Frias: PERFORM, SIGN, VERIFY Event Display: Progress Note Hospital Authored Date: [id number] Patient: GILLES WRIGHT Age: 78 years Sex: Male : 1945 Associated Diagnoses: None Author: Michelle Frias Findings Problem Related to Alteration in Cardiac Function (new) : Alteration in Cardiac Function/new 07/21/2023 18:00 EST Alteration in Cardiac Status Related to Other: Endocarditis Goals & Outcomes, Cardiac Status Pt will resume/maintain adequate cardiac output, Pt will resume/maintain adequate hemodynamic status, Pt will resume/maintain adequate respiratory function, Pt will resume/maintain intact neuro function, Pt will maintain adequate GI/ function appropriate for pt, Pt will maintain adequate nutrition status, Pt/caregiver will state understanding of diagnosis, Pt/caregiver will state strategies to reduce risk factors, Other: Cardiac Interventions Implemented Assess/monitor cardiac status, Assess for chest pain, document characteristics BH Goals/Interventions, Cardiac Yes Cardiac, Problem Start 07/17/2023 17:00 Reviewed Plan with, Cardiac Status Patient Patient Progression, Cardiac Status Patient progressing according to plan . Nursing Data Vital Signs : VITAL SIGNS SECTION 07/21/2023 14:54 EST Temperature 97.3 DegF Temperature Route Oral Pulse Rate 60 bpm Respiratory Rate 19 br/min Systolic Blood Pressure 110 mm Hg Diastolic Blood Pressure 43 mm Hg L Pulse Pressure 67 mm Hg Oxygen Saturation 97 % Mode of Delivery (Oxygen) Room air 07/21/2023 11:00 EST Temperature 97.3 DegF Temperature Route Oral Pulse Rate 68 bpm Respiratory Rate 16 br/min Systolic Blood Pressure 131 mm Hg Diastolic Blood Pressure 48 mm Hg L Blood pressure sites Arm, right Pulse Pressure 83 mm Hg Oxygen Saturation 96 % Mode of Delivery (Oxygen) Room air 07/21/2023 7:00 EST Temperature 97.6 DegF Temperature Route Oral Pulse Rate 60 bpm Respiratory Rate 17 br/min Systolic Blood Pressure 115 mm Hg Diastolic Blood Pressure 50 mm Hg L Blood pressure sites Arm, right Pulse Pressure 65 mm Hg Oxygen Saturation 97 % Mode of Delivery (Oxygen) Room air . Narrative/Incidental Patient is alert and oriented x4. Patient reports no pain throughout shift. Patient's vitals have been stable. Patient went down to get a PICC line placed for his anitbiotics. 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 Patient currently reports no pain and is resting in his room, talking on the phone with his , and call allen within reach. . Consult note * Event Display: Consultation Note Authored Date: [id number] CONSULTATION DATE: 07/18/2023 CHIEF COMPLAINT: Fall. HISTORY OF PRESENT ILLNESS: The patient is an 78-year-old gentleman who has decompensated cirrhosiswith known ascites and esophageal varices. He had severe aortic stenosis approximately a year ago and underwent placement of a Wilver 3 TAVR valve. He developed complete heart block, status post, andunderwent pacemaker insertion a day or two later. He had lumbar fusion hardware placed about 5 years prior to that and he was admitted in January with general weakness. He was found to have Strep bacteremia and an epidural abscess with C5-C6 osteomyelitis. He was treated with 6 weeks of ceftriaxone arline repeated nuclear test showed no foci of infection. He presents to the hospital now with a few days of generalized weakness. He has been unable to walk for the past few days, with bilateral lower extremity weakness. His abdomen became more distended and complains of pain in the right lower quadrant. He presented to the hospital. He has CKD and anemia and baseline thrombocytopenia as well. He wasfound to have positive blood cultures, currently, with an Enterococcus faecalis. Sampling of his ascitic fluid was negative for bacteria. He has undergone echocardiogram, which was suspicious for vegetation on the TAVR valve and he underwent a cardiac CTA and he was felt to have a 4 mm fibrous patch on the valve. He is referred for consideration for surgical valve replacement. PAST MEDICAL HISTORY: Remarkable for coronary artery disease, congestive heart failure, diabetes type 2, hypertension, hyperlipidemia, iron deficiency anemia, neuropathy, status post NSTEMI, obstructive sleep apnea, on CPAP. He has had a pericardial fluid removed from around the heart. Also remarkable for prostate carcinoma and pulmonary hypertension. He has known hepatic cirrhosis secondary to alcohol consumption in the remote past. MEDICATIONS: At home medications include Aldactone, aspirin, bethanechol, clopidogrel, Coreg, Farxiga, iron, finasteride, gabapentin, lactulose, Lasix, lidocaine, Lipitor, midodrine, Narcan, NovoLog,pantoprazole, tamsulosin, Trulicity and Zetia, ALLERGIES: He reports an allergy to CONTRAST DYE, LASIX, TIZANIDINE, LISINOPRIL AND PREGABALIN. SOCIAL HISTORY: He does not use alcohol, never smoked. Lives at home with his . He actually hasa caregiver for his . REVIEW OF SYSTEMS: Taken and he reported a skin lesion on his left upper quadrant; this has been there for about 5-6 months. It is an exophytic lesion. Otherwise, he denied constitutional, head, eyes, ears, nose, throat, gastrointestinal, genitourinary, pulmonary, vascular, neurologic, hematologic, oncologic problems other than those already mentioned. PHYSICAL EXAMINATION: GENERAL: The patient is a well-appearing gentleman in no acute distress. He does have a quite protuberant abdomen, however, VITAL SIGNS: Remarkable for blood pressure of 100/47 mmHg, heart rate of 60 beats per minute and regular, O2 sat is 96% on room air with respirations of 16-18. HEENT: Normocephalic, atraumatic. PERRLA, EOMI. Membranes are moist. NECK: Supple. Bilateral carotid bruits. HEART: Sounds are remarkable for a grade 3/6 systolic murmur heard across the precordium. ABDOMEN: Protuberant. There is 1 x 1.5 cm x 1 cm skin lesion on his left upper quadrant. It is nontender. It has a surrounding area of erythema or hyperemia really and it is nontender. It is hard to say whether it looks cancerous. The abdomen is remarkable for ascites. No palpable masses or tenderness. MUSCULOSKELETAL: Intact. EXTREMITIES: Pulses are 2+ radial, femoral, popliteal, dorsalis pedis, posterior tibial. Veins appear present in both lower extremities. No cyanosis, edema. MUSCULOSKELETAL: Intact. NEUROLOGIC: No gross motor or sensory deficits. Review of the echocardiogram is remarkable for relatively normal heart function and the normally functioning prosthetic TAVR valve. Review of the CTA of the heart is remarkable for a fibrous-filling defect on one of the leaflets. In summary, Mr. Gilles Wright is an 78-year-old gentleman who has bacteremia. He has a pacemaker and a TAVR valve. Given the presence of bacteremia, the pacemaker should probably be removed. It is a little bit more than a year out from the implantation and probably does not require extraction techniques to remove the pacing wires. He is apparently pacer dependent and apparently there is a plan to use a temporary-permanent for a day or 2 prior to replacing with a permanent pacemaker. With regard to his TAVR valve and the likelihood of a possibility of prosthetic valve endocarditis, that is something that cannot be ruled in or ruled out at the moment. Clearly my suspicion is that he probably does not have it, given the minimal findings, even at CTA. For these reasons, however, even if I knew he had prosthetic valve endocarditis, I cannot in good conscious recommend a surgical valve rereplacement. Even though he has not had a previous sternotomy, that operation in this patient would probably be lethal given the severity of his cirrhosis. He would most likely require a complex root replacement, which would not be a trivial or easy operation. For these reasons, I would recommend oncethe new pacemaker is placed that the patient be placed on antibiotics for the rest of his life. Question is with the source, given the Enterococcus faecalis, my suspicion is that this represents translocation from his gut as can happen in patients with cirrhosis. Apparently, he has had a previous episode of bacteremia. At this point, I cannot recommend surgery. If we can be of any assistance, do not hesitate to recontact. We will sign off at this point. Dictated by: Fabricio Del Toro M.D. Signing Clinician: Fabricio Del Toro M.D. Dictated: 07/18/2023 04:22:24 Transcribed: 02:39:03 PM Transcribed by: EVGENY DocID: [id number] PRELIMINARY REPORT UNLESS MANUALLY/ELECTRONICALLY SIGNED * Adonay Rojas MD: PERFORM Event Display: Consultation Note Authored Date: Patient: ??GILLES WRIGHT ? Age:??78 Years?Sex:??Male?:??1945?? History of Present Illness/Interval History 78??year old man with a PMHx significant for decompensated liver cirrhosis (Child-Harry B, MELD 15),severe aortic stenosis s/p TAVR May 2022, complete heart block s/p pacemaker May 2022, lumbar fusion hardware??placed 5 years ago, previously??admitted??01/24/2023 with Streptococcus parasa nguinous??bacteremia on blood cultures dated 01/24(cleared 01/26), C5-C6 osteomyelitis??with associated epidural phlegmon??treated with??6 weeks of ceftriaxone??01/26-03/08??who now presents??to the hospital with??complaints of??fatigue, generalized weakness, inability to walk,??urinary incontinence. ?? Given concern for cauda equina, an MRI of lumbar spine was performed which showed some degenerativechanges and nerve root compression.?? There was also noted Persistent findings of discitis/osteomyelitis at C5-6. Suspected central disc extrusion at C6-7 is seen extending both superiorly and inferiorly with posterior ligamentous buckling resulting in severe canal stenosis and cord compression with probable myelopathic signal abnormality. The degree of cord compression is similar to MRI from 01/26/2023. Prevertebral fluid is seen measuring 5 mm in thickness. ?? Patient was evaluated by neurosurgery who recommended dedicated MRI cervical spine and IR biopsy of prevertebral fluid. ?? He also complained of abdominal pain in the right lower quadrant.?? CT abdomen/pelvis without any acute abnormalities aside from cirrhosis and ascites.?? He underwent ultrasound-guided paracentesis with evacuation of 800 cc of clear yellow ascites.?? Fluid studies show clear yellow fluid with 279 WBCs, 54% segmented cells. ?? Patient denies any chest pain, denies shortness of breath, denies swelling of the leg, denies passing out,??denies orthopnea ?? Blood cultures taken on admission came back positive for Enterococcus faecalis and patient was started on ampicillin.?? Peritoneal fluid cultures remain negative so far Review of Systems Constitutional:??No weight loss, fever, chills, weakness or fatigue. Allergy/Immune: Denies any??Eczema or hives Eyes:??No visual loss, blurred vision, double vision or yellow sclera ENT:??No hearing loss, sneezing, congestion, runny nose or sore throat. Respiratory:??No shortness of breath, cough or sputum production. Cardiovascular:??No chest pain, chest pressure or chest discomfort. No palpitations or pedal edema. Gastrointestinal:??No anorexia, nausea, vomiting or diarrhea. No abdominal pain or blood in stool.?? Fluid in abdomen Genitourinary:??No burning micturition. No urinary frequency or incontinence. Skin:??No rash or itching. Endocrine:??No reports of sweating. No cold or heat intolerance. No polyuria or polydipsia. Psychiatric:??No depression or anxiety. Physical Exam Vitals & Measurements T:??98.2?F?? HR:??70??(Peripheral)?? RR:??18?? BP:??104/46?? SpO2:??96%?? WT:??89.5??kg?? Weight lb/oz: 197 lb 5 oz ?General not in acute distress ?HEENT: PERRLA ?Neck: No JVD, No thyromegaly ?Lungs: clear to auscultation bilaterally ?Cardiovascular: regular rate and rhythm, normal s1 and s2 no murmurs, no clear evidence of??infection at the device pocket site ?Abdomen:?? nontender, positive bowel sounds,??distended,??dull note on percussion ?Extremities: no edema ?Skin: No rash ?Neuro: grossly normal Assessment/Plan Enterococcal bacteremia S/p pacemaker Pacemaker dependent S/p TAVR Diabetes Liver failure History of esophageal varices ?? 2 blood cultures have??came back positive for enterococcal bacteremia.?? If blood cultures??continue to be positive??it is reasonable to extract pacemaker??and possibly proceed with??leadless pacemaker??versus a??temp permanent pacemaker??with??pulse generator outside the body??followed by a permanent pacemaker??after appropriate antibiotic??course. Patient is pacemaker??dependent Will appreciate??output from??cardiothoracic surgery with regards to??CT scan results??regarding TAVR Continue antibiotics per infectious disease team Abdominal??Did not show any clear evidence of infection.?? Continue??work-up for sepsis??for sourceof infection.?? If no??extracardiac source??of infection??is noted??and blood cultures stay positive??it is reasonable to proceed with??device extraction. ?? Please [place] text??if there are any questions. ?? Thank you for the consult Allergies Latex??(Rash) TiZANidine Hydrochloride??(hallucination) lisinopril??(throat swelling) pregabalin??(hallucination) Home Medications Alprazolam: TAKE 1 TABLET BY MOUTH TWICE DAILY NEEDED FOR ANXIETY Aspirin: 81 mg = 1 tablet, By Mouth, Daily, Do not start aspirin until 06/16/2022 Atorvastatin: 80 mg = 1 tablet, By Mouth, Daily Bethanechol: 25 mg = 1 tablet, By Mouth, 2 times a day Carvedilol: 6.25 mg = 1 tablet, By Mouth, 2 times a day, Hold if systolic blood pressure is below 120 mmHg and/or heart rate is below 55 [id number] Clopidogrel: 75 mg = 1 tablet, By Mouth, Daily dapagliflozin: 10 mg = 1 tablet, By Mouth, Daily dulaglutide: 0.75 mg = 0.5 mL, Subcutaneous Injection, Every week, EVERY THURSDAY Durable Medical Equipment: See Instructions, Blood pressure cuffICD: I10 Ezetimibe: 10 mg = 1 tablet, By Mouth, Daily Ferrous Sulfate: 325 mg = 1 tablet, By Mouth, Daily Finasteride: 5 mg = 1 tablet, By Mouth, Daily Folic Acid: TAKE 1 TABLET BY MOUTH EVERY DAY Furosemide: 40 mg = 1 tablet, By Mouth, Daily, For ascites. Hold if systolic blood pressure is below 120 mmHg. Gabapentin: 400 mg = 1 capsule, By Mouth, 3 times a day Insulin Aspart: See Instructions, 2-25 units Subcutaneous Injection 3 times a day before meals and bedtime insulin degludec: INJECT 60 UNITS UNDER THE SKIN AT BEDTIME Lactulose: See Instructions, PRN (Other), Take 15 mL as needed for constipation, please maintain daily bowel movement, hold for excessive loose stool or diarrhea (more than 3 times a day). Midodrine: 10 mg = 1 tablet, By Mouth, 3 times a day, To help maintain systolic blood pressure above 110-120 mmHg Pantoprazole: 40 mg = 1 tablet, By Mouth, Daily Spironolactone: 100 mg = 1 tablet, By Mouth, Daily, For ascites. Hold if systolic blood pressure isbelow 120 mmHg. Tamsulosin: 0.4 mg = 1 capsule, By Mouth, Daily, (LAST FILLED 10/01/22) Hospital Medications Medications (29) Active SCHEDULED: (20) Ampicillin 2 Gm Inj (Ampicillin IVPB) ??2 Gm, IVPB, Every 6 hours Aspirin 81 mg EC Tablet (aspirin [...] Inj (Ceftriaxone Inj) ??2 Gm, IVPB, Every 12 hours Clopidogrel 75 mg Tablet (Plavix 75 mg oral tablet) ??75 mg, By Mouth, Daily Dapagliflozin 10 mg Tablet (Dapagliflozin Tablet) ??10 mg, By Mouth, Daily Ferrous Sulfate 325 mg EC Tablet (ferrous sulfate 325 mg oral enteric coated tablet) ??325 mg, By Mouth, Daily Finasteride 5 mg Tablet (finasteride 5 mg oral tablet) ??5 mg, By Mouth, Daily Folic Acid 1 mg Tablet (folic acid 1 mg oral tablet) ??1 mg, By Mouth, Daily Furosemide 40 mg Tablet (Lasix 40 mg oral tablet) ??40 mg, By Mouth, Daily Gabapentin 400 mg Capsule (gabapentin 400 mg oral capsule) ??400 mg, By Mouth, 3 times a day Heparin 5000 units/mL Inj (1 mL) (Heparin Inj) ??5,000 units 1 mL, Subcutaneous Injection, 3 times a day Insulin Detemir 100 units/mL Inj (Levemir Inj) ??10 units 0.1 mL, Subcutaneous Injection, Daily at bedtime Insulin Lispro 100 units/mL Inj (3mL) (Insulin LISPRO Sliding Scale) ??2-10 units, Subcutaneous Injection, 3 times a day before meals NaCl 0.9% Flush 3ml (NaCL 0.9% Flush) ??3 mL, IV Push, Every 8 hours Pantoprazole 40 mg EC Tablet (pantoprazole 40 mg oral delayed release tablet) ??40 mg, By Mouth, Daily Spironolactone 100 mg Tablet (Aldactone 100 mg oral tablet) ??100 mg, By Mouth, Daily Tamsulosin 0.4 mg Capsule (tamsulosin 0.4 mg oral capsule) ??0.4 mg, By Mouth, Daily CONTINUOUS: (0) PRN: (9) Acetaminophen 325 mg Tablet (Acetaminophen Tablet) ??650 mg, By Mouth, Every 8 hours Dextromethorphan-Guaifenesin 20 mg-200 mg/10 mL Liqu UD (Robitussin DM Liquid) ??10 mL, By Mouth, Every 4 hours Docusate Sodium 100 mg Capsule (Docusate Sodium Capsule) ??100 mg 1 capsule, By Mouth, 2 times a day Melatonin 3 mg Tablet (Melatonin Tablet) ??3 mg, By Mouth, Daily at bedtime Midodrine 5 mg Tablet (midodrine 5 mg oral tablet) ??10 mg, By Mouth, 3 times a day NaCl 0.9% Flush 3ml (NaCL 0.9% Flush) ??3 mL, IV Push, Every 8 hours Polyethylene Glycol 17 Gm Powder (MiraLax Powder) ??17 Gm 1 pack/packet, By Mouth, Daily Senna Tablet ??8.6 mg 1 tablet, By Mouth, 2 times a day Simethicone 80 mg Chewable Tablet (Simethicone Tablet) ??80 mg, Chew, 3 times a day Lab Results Cardiology Labs WBC: 4.8 k/mm3 (07/18/23) RBC:??2.77 m/mm3??Low (07/18/23) Hgb:??7.1 Gm/dL??Low (07/18/23) Hct:??24.1 %??Low (07/18/23) MCV: 87 femtoliters (07/18/23) MCH:??25.6 pg??Low (07/18/23) MCHC:??29.5 g/dL??Low (07/18/23) Platelet Count:??136 k/mm3??Low (07/18/23) RDW-SD:??53 femtoliters??High (07/18/23) Nucleated RBC (Automated): 0 #/100 WBC'S (07/18/23) Abs. Neut: 5.8 k/mm3 (07/11/23) Abs. Lymph:??0.2 k/mm3??Low (07/11/23) Abs. [place]: 0.5 k/mm3 (07/11/23) Abs. Eo: 0 k/mm3 (07/11/23) Abs. Baso: 0 k/mm3 (07/11/23) Neut %:??88 %??High (07/11/23) [place] %: 7 % (07/11/23) Eos %: 0.2 % (07/11/23) Baso %: 0.5 % (07/11/23) Imm Gran: 0.8 % (07/11/23) Abs. Imm Gran: 0.1 k/mm3 (07/11/23) INR:??1.3??High (07/17/23) Protime (PT):??13.6 seconds??High (07/17/23) APTT: 25.9 seconds (01/28/23) Sodium: 141 mmol/L (07/18/23) Potassium: 4.3 mmol/L (07/18/23) Chloride:??109 mmol/L??High (07/18/23) Bicarbonate Level: 23 mmol/L (07/18/23) Glucose Level:??104 mg/dL??High (07/18/23) BUN:??36 mg/dL??High (07/18/23) Creatinine-Blood:??1.7 mg/dL??High (07/18/23) Calcium:??7.6 mg/dL??Low (07/18/23) Protein, Total:??5.3 Gm/dL??Low (07/17/23) Albumin:??2.5 Gm/dL??Low (07/17/23) Alkaline Phosphatase:??192 units/L??High (07/17/23) AST (SGOT):??43 units/L??High (07/17/23) ALT (SGPT): 39 units/L (07/17/23) Bilirubin, Total: 0.7 mg/dL (07/17/23) TSH: 2.54 uIU/mL (01/21/23) Diagnostic Impression CT CT Heart/Coronary/3D/Morph * Preliminary * ?? 16:47:13 IMPRESSION: ?? Status post TAVR. Along the left cusp there is low density thickening measuring up to 4 mm, suggesting fibrosis, less likely vegetation, although a small vegetation cannot be entirely excluded. ?? Ascites. ?? WSN: [id number] ? Ordering Physician: Jory Weiss ?? Signed By: Lou Agrawal MD CT TAVR Angio Chest ?? 16:16:43 IMPRESSION: 1. Aortic valve annular dimensions, coronary ostial distances, and arterial diameters as above. 2. Aortic annular calcification: Severe. ? WSN: [id number] ? Ordering Physician: Eveline Meneses ?? Signed By: Ruth Lopez MD, V CT TAVR Heart ?? 16:16:43 IMPRESSION: 1. Aortic valve annular dimensions, coronary ostial distances, and arterial diameters as above. 2. Aortic annular calcification: Severe. ? WSN: [id number] ? Ordering Physician: Eveline Meneses ?? Signed By: Ruth Lopez MD, V ECG ECG 12-Lead ?? 20:16:50 Please click on pdf link to open report ?? Signed By: Yarelis ROONEY, Sandeep ?? ECG 12-Lead ?? 20:16:50 Ventricular Rate: 80 BPM Atrial Rate: 72 BPM QRS Duration: 108 ms Q-T Interval: 412 ms QTC Calculation(Bazett): 475 ms R Tanana: -46 degrees T [place]ana: 129 degrees Ventricular-paced rhythm with occasional AV dual-paced complexes Abnormal ECG When compared with ECG of 11-JUL-2023 20:15, MANUAL COMPARISON REQUIRED, DATA IS UNCONFIRMED Confirmed by SANDEEP BARRAGAN MD ([id number]) on 07/17/2023 8:26:49 AM ?? [place]: SANDEEP BARRAGAN MD ?? Signed By: Sandeep Barragan MD Echo Echocardiogram - Complete ?? 11:41:03 Summary_The left ventricle is normal in size. There is mild left ventricular hypertrophy. Normal left ventricular function. Visually estimated LVEF 65-70%. There are no definite wall motion abnormalities seen in limited views. Moderate diastolic dysfunction._The right ventricle is poorly visualized. Function appears preserved._Biatrial dilation._There is a well-seated bioprosthetic aortic valve (26 mm Leone SAPIEN3 ultra). There is no significant paravalvular regurgitation. Peak velocity across the prosthetic valve is 3.4 m/s, DI 0.45, AT < 100 ms, EOA index 0.8 consistent with high flow state._No pericardial effusion ?? Impressions There is no definite evidence of mobile echodensities suspicious for vegetation in this below average quality study. Pursue LISANDRA for better evaluation of the valves if clinically indicated. ?? Comparison Comparison is made to the study of January 27, 2023. No significant change. ?? Signature ?? Signed By: Leslie Wilkerson MD Problem List/Past Medical History Ongoing CAD (coronary artery disease), LAD CHF (congestive heart failure) Diabetes mellitus type 2, insulin Essential hypertension Hyperlipidemia Iron deficiency anemia Neuropathy Old myocardial infarction, NSTEMI, s/p ZORA ANUJA on CPAP Pericardial effusion, s/p pericardiocentesis Prostate cancer Pulmonary HTN Procedure/Surgical History Cardiac catheterization: 02/10/19 Echocardiogram: 09/16/18 Cardiac catheterization w/ZORA to OTW: 08/01/13 Endoscopy: 2011 Pericardiocentesis w/pericardial window: 2005 Trigger finger release of right middle finger Social History Alcohol Use: Never. Electronic Cigarette/Vaping Electronic Cigarette Use: Never. Home/Environment Living situation: Home/Independent. Lives with: Spouse. Substance Abuse Use: Never. Tobacco Use: Never (less than 100 in lifetime). Family History No family history recorded. * Janay Colorado MD: PERFORM, MODIFY, MODIFY, MODIFY Event Display: Consultation Note Authored Date: [id number] Patient: ??GILLES WRIGHT ? Age:??78 Years?Sex:??Male?:??1945?? Reason for Consultation Cervical osteomyelitis, bacteremia Referring physician- Rudy Shea MD History of Present Illness 78??year old man with a PMHx significant for decompensated liver cirrhosis (Child-Harry B, MELD 15),severe aortic stenosis s/p TAVR May 2022, complete heart block s/p pacemaker May 2022, lumbar fusion hardware??placed 5 years ago, previously??admitted??01/24/2023 with Streptococcus parasa nguinous??bacteremia on blood cultures dated 01/24(cleared 01/26), C5-C6 osteomyelitis??with associated epidural phlegmon??treated with??6 weeks of ceftriaxone??01/26-03/08??who now presents??to the hospital with??complaints of??fatigue, generalized weakness, inability to walk,??urinary incontinence. ?? Given concern for cauda equina, an MRI of lumbar spine was performed which showed some degenerativechanges and nerve root compression.?? There was also noted Persistent findings of discitis/osteomyelitis at C5-6. Suspected central disc extrusion at C6-7 is seen extending both superiorly and inferiorly with posterior ligamentous buckling resulting in severe canal stenosis and cord compression with probable myelopathic signal abnormality. The degree of cord compression is similar to MRI from 01/26/2023. Prevertebral fluid is seen measuring 5 mm in thickness. ?? Patient was evaluated by neurosurgery who recommended dedicated MRI cervical spine and IR biopsy of prevertebral fluid. ?? He also complained of abdominal pain in the right lower quadrant.?? CT abdomen/pelvis without any acute abnormalities aside from cirrhosis and ascites.?? He underwent ultrasound-guided paracentesis with evacuation of 800 cc of clear yellow ascites.?? Fluid studies show clear yellow fluid with 279 WBCs, 54% segmented cells. ?? On interview today, patient reports left knee pain. ??He states that he has had chronic??knee pain for several years and used to receive cortisone shots??with the last one being approximately 8 yearsago.?? His knee was??relatively doing fine??up until??before he started??feeling weak and tired??when it acutely??worsened.?? Other than that, review of system was negative for??cough, shortness of breath, pleurisy, dysuria, frequency, urgency, skin rash or wounds.?? Denies neck pain??or stiffness. ?? Blood cultures taken on admission came back positive for Enterococcus faecalis and patient was started on ampicillin.?? Peritoneal fluid cultures remain negative so far ?? Antibiotics 07/13-now ampicillin ?? Notably during his last hospitalization??with Streptococcus??bacteremia??and cervical osteomyelitis,??the source was thought to be the??dental procedure.?? There was no evidence of SBP on paracentesis.?? TTE without endocardial involvement however??given??his high risk in the presence of TAVR, PPM??a LISANDRA was suggested which could not be performed??due to patient's history of varices, severe neck pain. ??Tagged WBC scan??was ordered??which has returned back negative. Review of Systems Reviewed, negative except as noted above Physical Exam Vitals & Measurements T:??98.6?F?? TMIN:??97.4?F?? TMAX:??98.6?F?? HR:??68??(Peripheral)?? RR:??18?? BP:??117/45?? SpO2:??97%? Constitutional: Alert, in no distress. Mental Status: Oriented to person, place and time. Head: Normocephalic. Eyes: No visible??conjunctival??redness??or drainage Ear, Nose and Throat: Oropharynx clear, mucous membranes moist. Neck: Supple, Full range of motion. Respiratory: No audible wheezing, stridor. Normal vesicular breath sounds CVS: S1, s2 normal, no murmurs Gastrointestinal: Abdomen soft, no tenderness. BS present Neurologic:??No aphasia, moving all extremities??spontaneously Skin: No rashes or lesions. Musculoskeletal: Cervical spine-no area of??tenderness. ??Left knee-no warmth or redness as compared to the right knee.?? Mild amount of swelling on the inferior aspect of the knee Psychiatric: Normal mood and affect Microbiology ? Culture/Event_id: ?Anaerobic Culture/[id number]?? Collect date: ?07/13/23 15:00 ? Result Status: ?Preliminary Result Date: ?07/14/23 08:47 ? SPECIMEN DESCRIPTION : ASCITIC FLUID ?? SPECIAL REQUESTS : NONE ?? CULTURE : NO ANAEROBES ISOLATED SO FAR. ?REPORT STATUS : ?? PRELIMINARY REPORT ? Culture/Event_id: ?Blood Culture, Second Order/[id number]?? Collect date: ?07/12/23 17:11 ? Result Status: ?Preliminary Result Date: ?07/14/23 08:31 ? SPECIMEN DESCRIPTION : BLOOD L FOREARM ?? SPECIAL REQUESTS : CRITICAL VALUE CALLED AND VERIFIED BY READBACK FOR: GRAM POSITIVE COCCI ? AND PCR RESULTS TO [id number], ER, 10/30/23 0312, BY TECH [id number] ?? CULTURE : ENTEROCOCCUS FAECALIS ?Enterococcus faecalis was identified by multi-plex PCR ?REPORT STATUS : ?? PRELIMINARY REPORT ? Culture/Event_id: ?Blood Culture/[id number]?? Collect date: ?07/12/23 17:05 ? Result Status: ?Preliminary Result Date: ?07/14/23 08:29 ? SPECIMEN DESCRIPTION : BLOOD R AC ?? SPECIAL REQUESTS : NONE ?? CULTURE : ENTEROCOCCUS FAECALIS ??This isolate was identified using Maldi-TOF ? system ?REPORT STATUS : ?? PRELIMINARY REPORT ? Imaging (07/12/2023 13:37 EDT MRI Lumbar Spine W+W/O Contrast) IMPRESSION: ?? 1. ??No evidence of infection in the lumbar spine.?? 2. ??Degenerative changes are seen as described with probably mild to moderate canal stenosis at L4-5. There is also probable compression of the descending left S1 nerve root in the subarticular recess at L5-S1 as well as severe bilateral neural foraminal stenosis at this level with potential compression of both exiting L5 nerve roots. 3. ??There are persistent findings of discitis/osteomyelitis at C5-6. Suspected central disc extrusion at C6-7 is seen extending both superiorly and inferiorly with posterior ligamentous buckling resulting in severe canal stenosis and cord compression with probable myelopathic signal abnormality. The degree of cord compression is similar to MRI from 01/26/2023. Prevertebral fluid is seen measuring5 mm in thickness. This could be further assessed with dedicated MRI of the cervical spine if clinically indicated. 4. ??Ascites and splenomegaly suggesting portal hypertension. [1] Assessment/Plan 78??year old man with a PMHx significant for decompensated liver cirrhosis (Child-Harry B, MELD 15),severe aortic stenosis s/p TAVR May 2022, complete heart block s/p pacemaker May 2022, lumbar fusion hardware??placed 5 years ago, previously??admitted??01/24/2023 with Streptococcus parasa nguinous??bacteremia on blood cultures dated 01/24(cleared 01/26), C5-C6 osteomyelitis??with associated epidural phlegmon??treated with??6 weeks of ceftriaxone??01/26-03/08??who now presents??to the hospital with??complaints of??fatigue, generalized weakness, inability to walk,??urinary incontinence??fo und to have??findings suggestive of persistent osteo??at C5-C6,??prevertebral fluid??measuring 5 mm??in thickness??partially seen??on an MRI??lumbar spine performed to rule out cauda equina.?? Blood cultures??dated 07/12 have now??resulted positive for??Enterococcus faecalis, started on ampicillin 07/13 ?? Concern of recurrence of??cervical??osteomyelitis. ??Dedicated cervical MRI??has been ordered and is pending.?? Patient could have seeded??the??previously damaged cervical spine??area??secondary to??a transient bacterial translocation.??Endocarditis and secondary seeding of cervical spine and knee is also possible??since he is also complaining of acute on chronic left knee pain.?Other sources of infection??considered??but none found. UA without evidence of infection.?? Ascitic fluid??also not suggestive of an infection, cultures) but negative so far.?? No respiratory symptoms??reported. ?? Recommendations -Continue ampicillin -Awaiting dedicated MRI cervical spine -IR guided??spinal biopsy has been requested by neurosurgery -TTE to look at valves.?? If negative, he will need further investigation??to rule out infective endocarditis. ??We were not able to perform a LISANDRA last time??due to his history of esophageal varices.?If that is the case, we may utilize cardiac gated CT -X-ray left knee -Repeat BC every 24-48 hours until clear ?? Case discussed with Dr Bower Findings communicated to primary team ? Janay Colorado MD PGY5 Infectious diseases Fellow Problem List/Past Medical History Ongoing CAD (coronary artery disease), LAD CHF (congestive heart failure) Diabetes mellitus type 2, insulin Essential hypertension Hyperlipidemia Iron deficiency anemia Neuropathy Old myocardial infarction, NSTEMI, s/p ZORA ANUJA on CPAP Pericardial effusion, s/p pericardiocentesis Prostate cancer Pulmonary HTN Procedure/Surgical History ???Cardiac catheterization (02/10/2019)???Echocardiogram (09/16/2018)???Cardiac catheterization w/ZORA to OTW (08/01/2013)???Endoscopy (2011)???Pericardiocentesis w/pericardial window (2005)???Triggerfinger release of right middle finger Medications Inpatient Acetaminophen Tablet, 650 mg, By Mouth, Every 4 hours, PRN Aldactone 100 mg oral tablet, 100 mg, By Mouth, Daily Ampicillin IVPB, 2 Gm, IVPB, Every 6 hours aspirin 81 mg oral delayed release tablet, 81 mg, By Mouth, Daily bethanechol 25 mg oral tablet, 25 mg, By Mouth, 2 times a day Coreg 6.25 mg oral tablet, 6.25 mg, By Mouth, 2 times a day Dapagliflozin Tablet, 10 mg, By Mouth, Daily Docusate Sodium Capsule, 100 mg= 1 capsule, By Mouth, 2 times a day, PRN ferrous sulfate 325 mg oral enteric coated tablet, 325 mg, By Mouth, Daily finasteride 5 mg oral tablet, 5 mg, By Mouth, Daily gabapentin 400 mg oral capsule, 400 mg, By Mouth, 3 times a day Heparin Inj, 5000 units= 1 mL, Subcutaneous Injection, 3 times a day Influenza, Quad High Dose Vaccine (Fluzone High Dose), 0.7 mL, Intramuscular, Once Insulin LISPRO Sliding Scale, 2-10 units, Subcutaneous Injection, 3 times a day before meals Lasix 40 mg oral tablet, 40 mg, By Mouth, Daily Levemir Inj, 10 units= 0.1 mL, Subcutaneous Injection, Daily at bedtime Lipitor 80 mg oral tablet, 80 mg, By Mouth, Daily Melatonin Tablet, 3 mg, By Mouth, Daily at bedtime, PRN MiraLax Powder, 17 Gm= 1 pack/packet, By Mouth, Daily, PRN NaCL 0.9% Flush, 3 mL, IV Push, Every 8 hours NaCL 0.9% Flush, 3 mL, IV Push, Every 8 hours, PRN pantoprazole 40 mg oral delayed release tablet, 40 mg, By Mouth, Daily Robitussin DM Liquid, 10 mL, By Mouth, Every 4 hours, PRN Senna Tablet, 8.6 mg= 1 tablet, By Mouth, 2 times a day, PRN Simethicone Tablet, 80 mg, Chew, 3 times a day, PRN tamsulosin 0.4 mg oral capsule, 0.4 mg, By Mouth, Daily Home Aldactone 100 mg oral tablet, 100 mg= 1 tablet, By Mouth, Daily ALPRAZolam 0.5 mg oral tablet aspirin 81 mg oral delayed release tablet, 81 mg= 1 tablet, By Mouth, Daily bethanechol 25 mg oral tablet, 25 mg= 1 tablet, By Mouth, 2 times a day Blood Pressure Monitor, See Instructions clopidogrel 75 mg oral tablet, 75 mg= 1 tablet, By Mouth, Daily Coreg 6.25 mg oral tablet, 6.25 mg= 1 tablet, By Mouth, 2 times a day Farxiga 10 mg oral tablet, 10 mg= 1 tablet, By Mouth, Daily ferrous sulfate 325 mg oral enteric coated tablet, 325 mg= 1 tablet, By Mouth, Daily finasteride 5 mg oral tablet, 5 mg= 1 tablet, By Mouth, Daily folic acid 0.8 mg oral tablet gabapentin 400 mg oral capsule, 400 mg= 1 capsule, By Mouth, 3 times a day lactulose 10 gm/15 ml oral syrup, See Instructions, PRN Lasix 40 mg oral tablet, 40 mg= 1 tablet, By Mouth, Daily Lipitor 80 mg oral tablet, 80 mg= 1 tablet, By Mouth, Daily midodrine 10 mg oral tablet, 10 mg= 1 tablet, By Mouth, 3 times a day, 2 refills NovoLOG FlexTouch, See Instructions pantoprazole 40 mg oral delayed release tablet, 40 mg= 1 tablet, By Mouth, Daily tamsulosin 0.4 mg oral capsule, 0.4 mg= 1 capsule, By Mouth, Daily Tresiba FlexTouch 200 units/mL subcutaneous solution Trulicity Pen 0.75 mg/0.5 mL subcutaneous solution, 0.75 mg= 0.5 mL, Subcutaneous Injection, Every week Zetia 10 mg oral tablet, 10 mg= 1 tablet, By Mouth, Daily Allergies Contrast Dye??(Unknown) Latex??(Rash) TiZANidine Hydrochloride??(hallucination) lisinopril??(throat swelling) pregabalin??(hallucination) Social History Alcohol Use: Never. Electronic Cigarette/Vaping Electronic Cigarette Use: Never. Home/Environment Living situation: Home/Independent. Lives with: Spouse. Substance Abuse Use: Never. Tobacco Use: Never (less than 100 in lifetime). Immunizations Vaccine Date Status SARS-CoV-2 (COVID-19) mRNA-1273 vaccine 10/11/2021 Recorded SARS-CoV-2 (COVID-19) mRNA-1273 vaccine 11/14/2020 Recorded SARS-CoV-2 (COVID-19) mRNA-1273 vaccine 10/17/2020 Recorded pneumococcal 23-valent vaccine 07/16/2020 Recorded tetanus-diphtheria toxoids (Td) 06/16/2019 Recorded [1]??MRI Lumbar Spine W+W/O Contrast; Reggie ROONEY , Brenda Gutierrez 07/12/2023 13:37 EDT * Harper ROONEY, Cole Culp: PERFORM Event Display: Consultation Note Authored Date: [id number] ATTENDING ADDENDUM: Patient evaluated and discussed with infectious disease fellow Dr [place]. ??Reviewed history, physical exam, and assessment. ??Agree with findings and recommendations. Of note, the patient does preferdifficulties voiding??but no pain or discomfort.?? Possible that urinary retention could have caused translocation to cause all the noted issues with the Enterococcus.?? Bladder scanning to ensure ifthe patient needs??further evaluation or management regarding potential retention should be considered Patient Care team information Care Team Personnel Name: Steff Puentes RN Position: [facility] RN Member Role: Primary Care Nurse Name: Kalyani Miller LPN Position: S RN Member Role: Primary Care Nurse Name: Nadiya Coleman RN Position: S RN Member Role: Primary Care Nurse Name: Tripp Machado RN Position: [facility] RN Member Role: Primary Care Nurse Name: Sobia Hilliard RN Position: [facility] RN Supv Member Role: Primary Care Nurse Name: Lupe Díaz RN Position: [facility] RN Member Role: Primary Care Nurse Name: Andrew Burks RN Position: [facility] RN Member Role: Primary Care Nurse Name: Lorraine Araujo RN Position: [facility] RN Member Role: Primary Care Nurse Name: Adryan Rm RN Position: [facility] RN Member Role: Primary Care Nurse Name: Sher Sandoval RN Position: [facility] RN Member Role: Primary Care Nurse Name: Fely Gaspar Position: [facility] RN Member Role: Primary Care Nurse Name: Meli Luz LPN Position: [facility] RN Member Role: Primary Care Nurse Name: Matheus Cleveland RN Position: [facility] RN Member Role: Primary Care Nurse Name: Karolina Barcenas RN Position: [facility] RN Member Role: Primary Care Nurse Name: Mercedes Maki Position: [facility] RN Member Role: Primary Care Nurse Name: Edna Horner RN Position: [facility] RN Member Role: Primary Care Nurse Name: Aguila Acevedo LPN Position: [facility] RN Member Role: Primary Care Nurse Name: Les Sahu MD Position: [facility] Renal MD Member Role: Lifetime Consulting Physician Address: Address: [address] [place] [address] [facility] [address] Name: Gabby Ma RN Position: [facility] SN RN Member Role: Primary Care Nurse Name: Nadia Lainez RN Position: [facility] RN Member Role: Primary Care Nurse Name: Yohannes Watson RN Position: [facility] RN Member Role: Primary Care Nurse Name: Huyen Griffin RN Position: [facility] RN Member Role: Primary Care Nurse Name: Staci Salgado LPN Position: [facility] RN Member Role: Primary Care Nurse Name: Kanwal Ta RN Position: [facility] RN Member Role: Primary Care Nurse Name: Zo Vivar RN Position: [facility] RN Member Role: Primary Care Nurse Name: Anh Batista RN Position: [facility] RN Member Role: Primary Care Nurse Name: Maninder Gorman MD Position: Reference Physician Member Role: PCP Address: Address: [address] [place] [address] [address] [place] [address]- Name: *Elmira COLEY Attending Position: [facility] ED Medicine MD Name: Lynn Avalos RN Position: [facility] ED RN W/OE and Tasks Member Role: Patient Care Provider Name: Neva Mcadams RN Position: [facility] ED RN W/OE and Tasks Member Role: Patient Care Provider Name: Ting Horta Position: [facility] ED TA [facility] Member Role: Automation Tester Name: Loulou Rodriguez Position: [facility] ED OA Charge Member Role: ED Associate Care Team Related Persons Name: DES WRIGHT Address: home [address] [place] [address] Name: GISELA WRIGHT Address: [place] [address]
--- OUTSIDE RECORDS SUMMARY | 2024-04-15 20:04 | XMS_ITS | Continuity of Care Document ---
Author Organization [facility] ter Address [address] [place] [id number]- Care Team Providers Care Family Independence Case Manager Name Role Phone Vita ROONEY, Maninder Sanon Primary Care Physic naomi Encounter [facility] Date(s): 02/04/23 - 03/23/[address] [address] Attending Physician: Mirella Rojas MD Admitting [...] 02/07/23 12:32:00 EDT, Route to Pharmacy Electronically, [facility] #[id number], Partial nikhil... Start Date: 02/07/23 Status: Ordered aspirin 81 mg oral delayed release tablet 81 mg, 1, tablet, By Mouth, Daily, Do not start aspirin until 06/16/2022, # 90 tablet, Refills 0, Tot. Refills 0, Maintenance, 02/07/23 12:28:00 EDT, Route to Pharmacy Electronically, [facility] #[id number], Partial fill upon patient request if t... [...] mmHg and/or heart rate is below 55 [id number], # 180 tablet, Refills 0, Tot. Refills 0, Maintenance, 02/07/23 12:29:00 EDT, Route to Pharmacy Electronically... Start Date: 02/07/23 Status: Ordered Farxiga 10 mg oral tablet 1 tablet = 10 mg, By Mouth, Daily, # 90 tablet, 0 Refills, Maintenance, 02/07/23 12:33:00 EDT, Tablet, [facility] #[id number], Partial fill upon patient request if the prescription is for a schedule II opioid drug., 175, cm, 02/07/23 12:05:00 EDT... Start Date: 02/07/23 Status: Ordered ferrous sulfate 325 mg oral enteric coated tablet 325 mg, 1, tablet, By Mouth, Daily, # 90 tablet, Refills 0, Tot. Refills 0, Maintenance, 02/07/23 12:36:00 EDT, Route to Pharmacy Electronically, [facility] #[id number], Partial fill upon patient request if the prescription is for a schedule II o... Start Date: 02/07/23 Status: Ordered finasteride 5 mg oral tablet 1 tablet = 5 mg, By Mouth, Daily, # 90 tablet, 0 Refills, Maintenance, 02/07/23 12:28:00 EDT, Tablet, [facility] #[id number], Partial fill upon patient request if the [...] 02/07/23 12:31:00 EDT, Route to Pharmacy Electronically, [facility] #[id number], Partial fill... Start Date: 02/07/23 Status: Ordered lidocaine 5% topical film 1 patch, Topically, Daily, Apply to back of the neck tender point, 12 hours on then 12 hours off., # 30 patch, 0 Refills, Maintenance, 02/07/23 12:30:00 EDT, Patch, [facility] #[id number], Partial fill upon patient request if the prescription is... Start Date: 02/07/23 Status: Ordered Lipitor 80 mg oral tablet 1 tablet = 80 mg, By Mouth, Daily, # 90 tablet, 0 Refills, Maintenance, 02/07/23 12:28:00 EDT, Tablet, [facility] #[id number], 175, cm, 02/07/23 12:05:00 EDT, Height, 94, kg, 01/23/23 9:15:00 EDT, Dry Weight Start Date: 02/07/23 Status: Ordered midodrine 10 mg oral tablet 1 tablet = 10 mg, By Mouth, 3 times a day, To help maintain systolic blood pressure above 110-120 mmHg, # 90 tablet, 2 Refills, Maintenance, 02/07/23 12:33:00 EDT, Tablet, [facility] #[id number], Partial fill upon patient request if the prescript... Start Date: 02/07/23 Status: Ordered Narcan 4 mg/0.1 mL nasal spray = 4 mg, Nares, Both, Once, PRN Other, To reverse opioid overdose, administer to each nostril, may repeat every 2 to 3 minutes until patient responds, call 911 in the meantime., # 2 each, 0 Refills, Soft Stop, 02/07/23 12:41:00 EDT, [facility]... Start Date: 02/07/23 Status: Ordered NovoLOG [...] 02/07/23 12:29:00 EDT, Route to Pharmacy Electronically, [facility] #[id number],Partial fill upon patient request if the prescripti... [...] 0 Refills, Maintenance, 02/07/23 12:33:00 EDT, Tablet, [facility] #[id number], Partial fill upon patient request if the [...] 2013. Urologist is Dr. Zafar Roa [facility] ). Social History Social History Type [...] Nurse Name: Lorraine Araujo RN Position: [facility] AMB Nurse Member Role: Primary Care Nurse Name: Adryan Rm RN Position: [facility] RN Member Role: Primary Care Nurse Name: Peg Trinidad RN Position: [facility] RN Member Role: Primary Care Nurse Name: Fely Gaspar Position: [facility] RN Member Role: Primary Care Nurse Name: Meli Luz LPN Position: [facility] RN Member Role: Primary Care Nurse Name: Matheus Cleveland RN Position: [facility] RN Member Role: Primary Care Nurse Name: Mercedes Maki Position: [facility] RN Member Role: Primary Care Nurse Name: Les Sahu MD Position: [facility] Renal MD Member Role: Lifetime Consulting Physician Address: Address: [address] [facility] [place], [place] [address]- Name: Gabby Ma RN Position: [facility] SN RN Member Role: Primary Care Nurse Name: Huyen Griffin Position: [facility] RN Member Role: Primary Care Nurse Name: Zo Vivar RN Position: [facility] RN Member Role: Primary Care Nurse Name: Vita ROONEY, Maninder Sanon Position: Reference Physician Member Role: PCP Address: Address: [address] [place] [address]- Care Team Related Persons Name: DES WRIGHT Address: home [address] [place] [address] Name: GISELA WRIGHT Address: home [place] [place] [address]
--- OUTSIDE RECORDS SUMMARY | 2024-04-15 20:04 | XMS_ITS | Continuity of Care Document ---
Author Organization [facility] ter Address [address] [place] [id number]- Care Team Providers Care Distance Education Coordinator Name Role Phone Roberto Carlos Arzola Primary Care Physician Encounter [facility] Date(s): 02/24/24 - 02/29/[address] [address] Discharge Disposition: A-D/C Home Attending Physician: Alvaro Conner DO Admitting Physician: Reinier Dotson DO Referring Physician: Not on Staff, Referring MD [...] 02/07/23 12:28:00 EDT, Route to Pharmacy Electronically, [facility] #[id number], Partial fill upon patient request if t... [...] EDT, Supply Start Date: 02/07/23 Status: Ordered diclofenac 1% topical gel = 4 Gm, Topically, 4 times a day, PRN Pain , Moderate, # 100 Gm, 0 Refills, Maintenance, 08/15/23 11:37:00 EST, Gel, [facility] #[id number], Partial fill upon patient request if the prescriptionis for a schedule II opioid drug., 175, cm, ... Start Date: 08/15/23 Status: Ordered Farxiga 10 mg oral tablet 1 tablet = 10 mg, By Mouth, Daily, # 90 tablet, 0 Refills, Maintenance, 02/07/23 12:33:00 EDT, Tablet, [facility] #[id number], Partial fill upon patient request if the prescription is for a schedule II opioid drug., 175, cm, 02/07/23 12:05:00 EDT... Start Date: 02/07/23 Status: Ordered ferrous sulfate 325 mg oral enteric coated tablet 325 mg, 1, tablet, By Mouth, Daily, # 90 tablet, Refills 0, Tot. Refills 0, Maintenance, 02/07/23 12:36:00 EDT, Route to Pharmacy Electronically, [facility] #[id number], Partial fill upon patient request if the prescription is for a schedule II o... Start Date: 02/07/23 Status: Ordered finasteride 5 mg oral tablet 1 tablet = 5 mg, By Mouth, Daily, # 90 tablet, 0 Refills, Maintenance, 02/07/23 12:28:00 EDT, Tablet, [facility] #[id number], Partial fill upon patient request if the [...] 07/22/23 9:56:00 EST, Route to Pharmacy Electronically, [facility] #[id number], Partial fill upon patient request if the prescription is for a sche... Start Date: 07/22/23 Status: Ordered lactulose 10 gm/15 ml oral syrup See Instructions, PRN Other, Take 15 mL as needed for constipation, please maintain daily bowel movement, hold for excessive loose stool or diarrhea (more than 3 times a day)., # 480 mL, 0 Refills, Maintenance, 02/07/23 12:36:00 EDT, Syrup, [facility]... Start Date: 02/07/23 Status: Ordered Lipitor 80 mg oral tablet 1 tablet = 80 mg, By Mouth, Daily, # 90 tablet, 0 Refills, Maintenance, 02/07/23 12:28:00 EDT, Tablet, [facility] #[id number], 175, cm, 02/07/23 12:05:00 EDT, Height, 94, kg, 01/23/23 9:15:00 EDT, Dry Weight Start Date: 02/07/23 Status: Ordered midodrine 10 mg oral tablet 1 tablet = 10 mg, By Mouth, 3 times a day, To help maintain systolic blood pressure above 110-120 mmHg, # 90 tablet, 2 Refills, Maintenance, 02/29/24 10:56:00 EDT, Tablet, [facility], Partial fill upon patient request if the prescription... Start Date: 02/29/24 Status: Ordered midodrine 5 mg oral tablet 10 mg, Tablet, By Mouth, 02/29/24 9:00:00 EDT Start Date: 02/29/24 Stop Date: 02/29/24 Status: Completed NovoLOG FlexTouch See Instructions, 2-25 units Subcutaneous [...] Dry Weight Start Date: 02/07/23 Status: Ordered spironolactone 25 mg oral tablet 50 mg, By Mouth, Daily, # 60 tablet, Refills 0, Tot. Refills 0, Maintenance, 02/29/24 10:56:00 EDT,Route to Pharmacy Electronically, [facility], Partial fill upon patient request if the prescription is for a schedule II opioid drug., 17... Start Date: 02/29/24 Status: Ordered tamsulosin 0.4 mg oral capsule 0.4 mg, 1, capsule, By Mouth, Daily, (LAST FILLED 10/01/22), # 90 capsule, Refills 0, Tot. Refills 0, Maintenance, 02/07/23 12:29:00 EDT, Route to Pharmacy Electronically, [facility] #[id number],Partial fill upon patient request if the prescripti... Start Date: 02/07/23 Status: Ordered torsemide 20 mg oral tablet 2 tablet = 40 mg, By Mouth, Daily, # 60 tablet, 0 Refills, Maintenance, 02/29/24 10:56:00 EDT, Tablet, [facility], Partial fill upon patient request if the prescription is for a schedule II opioid drug., 175, cm, 02/29/24 10:17:00 EDT, H... Start Date: 02/29/24 Status: Ordered Tresiba FlexTouch 200 units/mL subcutaneous [...] 0 Refills, Maintenance, 02/07/23 12:33:00 EDT, Tablet, [facility] #[id number], Partial fill upon patient request if the [...] February 2013. Urologist is Dr. [facility]af[facility] ). Results Radiology Reports * Exam Date Time Procedure Performing Provider Status 02/25/24 8:41 AM US Ascites Adilia Cavanaugh; Auth (V erified) Notes: (US Ascites) Reason For Exam: distention;Other: RESULT: US Ascites US Ascites Reason: distention; Clinical Question(s): Ascites COMPARISON: Ultrasound ascites-08/13/2023. TECHNIQUE: Grayscale limited abdominal ultrasound of the 4 quadrants. FINDINGS: * Small quantity of abdominal ascites in all 4 quadrants. * Partially imaged liver demonstrates coarse hepatic echotexture and nodular hepatic contour. * Partially imaged spleen is enlarged to at least 17 cm. IMPRESSION: 1. Small quantity of ascites in all 4 quadrants. 2. Cirrhotic morphology. 3. Moderate splenomegaly. I have personally reviewed the images and I agree with this report. WSN: [id number] Ordering Physician: Alvaro Conner Dictated By: Samir Elmore MD Dictated Date/Time: 02/25/24 8:50 am Reviewed By: David Weldon MD Signed By: David Weldon MD Signed Date/Time: 02/25/24 8:55 am Transcribed By: CARLOS Transcribed Date/Time: 02/25/24 8:49 am * Exam Date Time Procedure Performing Provider Status 02/24/24 4:14 PM Chest 2 Views Frontal and Lat Hal Camilo; Auth (Verified) Notes: (Chest 2 Views Frontal and Lat) Reason For Exam: Pleuritic Pain RESULT: Chest 2 Views Frontal and Lat Chest 2 Views Frontal and Lat Hx of Present Illness: bilat leg swelling and abd distention; Reason: Pleuritic Pain; Clinical Question(s): Pulmonary Edema COMPARISON: 08/12/2023. FINDINGS: LINES AND TUBES: Dual-lead left subclavian pacer wires are intact. LUNGS AND PLEURA: Lung volumes are low Clear lungs. Normal pulmonary vascularity. No pleural effusion. No pneumothorax. HEART, MEDIASTINUM AND KAYE: Mild prominence of the cardiac silhouette, unchanged. Status post TAVR. BONES AND SOFT TISSUES: No acute abnormality. IMPRESSION: No acute abnormality. WSN: [id number] Ordering Physician: Reggie Horne Dictated By: Naman Enciso MD Dictated Date/Time: 02/24/24 4:20 pm Reviewed By: Naman Enciso MD Signed By: Naman Enciso MD Signed Date/Time: 02/24/24 4:20 pm Transcribed By: CARLOS Transcribed Date/Time: 02/24/24 4:20 pm Vital Signs Most recent to oldest [Reference Range]: 1 2 3 Height 175 cm (02/29/24 9:56 AM) 175 cm (02/29/24 3:30 AM) 175 cm (02/28/24 7:40 PM) Weight 80.8 kg (02/29/24 5:15 AM) 82.4 kg (02/28/24 6:21 AM) 84.0 kg (02/27/24 4:37 AM) Oxygen Saturation [94-100 %] 96 % (02/29/24 9:56 AM) 97 % (02/29/24 3:30 AM) 96 % (02/28/24 7:40 PM) Pulse Rate [55-90 bpm] 87 bpm (02/29/24 9:56 AM) 84 bpm (02/29/24 8:07 AM) 77 bpm (02/29/24 3:30 AM) Body Mass Index [18.5-24.99 kg/m2] 27.43 kg/m2 *H* (02/27/24 4:37 AM) 27.95 kg/m2 *H* (02/24/24 9:12 PM) Blood Pressure [90-138/55-84 mm Hg] 125/55mm Hg (02/29/24 9:56 AM) 106/46mm Hg (02/29/24 8:07 AM) 100/56mm Hg (02/29/24 3:30 AM) Respiratory Rate [16-30 br/min] 18 br/min (02/29/24 9:56 AM) 18 br/min (02/29/24 3:30 AM) 17 br/min (02/28/24 7:40 PM) Temperature [96.8-100.4 DegF] 98.7 DegF (02/29/24 9:56 AM) 98.2 DegF (02/29/24 3:30 AM) 98.6 DegF (02/28/24 7:40 PM) Mode of Delivery (Oxygen) Room air (02/29/24 9:56 AM) CPAP (02/29/24 3:30 AM) Room air (02/28/24 7:40 PM) Blood pressure sites Arm, right (02/29/24 9:56 AM) Arm, right (02/29/24 3:30 AM) Arm, right (02/28/24 7:40 PM) Temperature Route Oral (02/29/24 9:56 AM) Axillary (02/29/24 3:30 AM) Oral (02/28/24 7:40 PM) Dry Weight 85.6 kg (02/24/24 9:12 PM) 86.5 kg (02/24/24 1:42 PM) Weight Obtained Via Bed scale (02/29/24 5:15 AM) Bed scale (02/28/24 6:21 AM) Bed scale (02/27/24 4:37 AM) Dry Weight Obtained Via Bed scale (02/24/24 9:12 PM) Social History Social History Type Response Smoking Status Never (less than 100 in lifetime) entered on: 06/02/22 Sex Admission evaluation note * Juan A ROONEY, Chano Culp: PERFORM Event Display: Admission Note Authored Date: [id number] Patient: ??GILLES WRIGHT ? Age:??78 Years?Sex:??Male?:??1945?? Chief Complaint/Reason for Consultation Weight gain, abdominal distension, lower extremity swelling History of Present Illness 78-year-old male patient with an extensive medical history including orthostatic hypotension, hyperlipidemia, diabetes mellitus, chronic kidney disease, coronary artery disease, aortic stenosis status post TAVR, complete heart block status post permanent pacemaker placement, heart failure with preserved ejection fraction, decompensated liver cirrhosis (ascites - esophageal varices, MELD score 15,Child Harry B), chronic anemia requiring weekly blood transfusion,??and obstructive sleep apnea on CPAP machine who presented to the emergency department for evaluation of bilateral lower extremity swelling, abdominal distension and weight gain and admitted with volume overload. ?? Patient has history of decompensated liver cirrhosis with ascites and esophageal varices who presented to the ED with more than 30 pounds weight gain, bilateral lower extremity swelling and abdominaldistension. He reports around 2-3 weeks ago he was seen by his md urologist and was supposed to double the dose of his diuretic but this was not sent to the pharmacy. He denies chest pain, shortness of breath, fever, chills, change in bowel habit or urinary symptoms. Of note he has history of chronic anemia and receive weekly blood transfusion (most recently on Thursday) and has history of esophageal varices and underwent EGD and variceal banding 2 weeks ago at [facility]. ?? In the Emergency department He was afebrile, and hemodynamically stable, on room air with good oxygen saturation. His labs are significant for - normocytic anemia with hemoglobin of 7.8 g/dL and thrombocytopenia with platelets of 71, - stable elevated kidney function with creatinine of 1.38 mg/dL. - elevated alkaline phosphatase of 167 and AST of 43. - Troponin was 38 and 35 on repeat. - ProBNP was 587. - EKG showed atrial sensed- ventricular paced rhythm with PVCs. CXR with prominent cardiac silhouette but no acute abnormalities. Review of Systems Constitutional:?No weight loss, fever, chills, weakness or fatigue. Cardiovascular:??No chest pain,pressure or discomfort. No palpitations or pedal edema. Respiratory:??No shortness of breath, cough or sputum production. Gastrointestinal:?abdominal distesnion Genitourinary: No burning micturition. No urinary frequency or incontinence. Neurologic: No headache, dizziness, syncope, unilateral weakness, ataxia, numbness or tingling in the extremities. No change in bowel or bladder control. Musculoskeletal: No muscle pain, back pain, joint pain or stiffness. Hematologic: No bleeding or bruising. Lymphatics: No enlarged lymph nodes. Psychiatric: No depression or anxiety. Endocrine: No reports of sweating. No cold or heat intolerance. No polyuria or polydipsia. All other systems were reviewed and are negative.?? Objective Vital Signs?? Temperature: 97.9 DegF (02/25/24 00:00:00) Temperature Route: Oral (02/25/24 00:00:00) Pulse Rate: 70 bpm (02/24/24 21:12:00) Heart Rate Monitored: 69 bpm (02/25/24 01:00:00) Respiratory Rate: 18 br/min (02/25/24 01:00:00) Systolic Blood Pressure: 113 mm Hg (02/25/24 01:00:00) Diastolic Blood Pressure:??49 mm Hg??Low (02/25/24 01:00:00) Blood pressure sites: Arm, right (02/25/24 01:00:00) Mean Arterial Pressure: 74 mm Hg (02/24/24 21:12:00) Pulse Pressure: 64 mm Hg (02/25/24 01:00:00) Oxygen Saturation: 99 % (02/25/24 01:00:00) Mode of Delivery (Oxygen): Room air (02/25/24 01:00:00) Early Warning Score: 5 (02/25/24 01:18:16) ? Physical Exam Constitutional: Alert, in no acute distress. Head: Normocephalic. Eyes: Pupils are equal, round and reactive to light. Extraocular muscles intact. No pallor or scleral icterus Ear, Nose and Throat: mucous membranes moist. Ears and nose - no obvious deformities. Neck: No JVD or bruits. Respiratory:??Clear to auscultation. No wheezing or rhonchi.??No use of accessory muscles. Cardiovascular:??S1 S2 regular. No murmurs, rubs or gallops. Gastrointestinal:??Abdomen soft, non-tender, distended. Extremities: bilateral lower extremity edema. Neurologic:??AAOx3, Cranial nerves II-XII grossly intact. Speech normal, no facial droop. No focal neurological deficits. Moves all extremities spontaneously. Skin:??Ecchymosis noticed on post bilateral upper??extremities. Musculoskeletal:??No gross deformities on inspection Psychiatric: Normal mood and affect. Assessment/Plan 78-year-old male patient with an extensive medical history including orthostatic hypotension, hyperlipidemia, diabetes mellitus, chronic kidney disease, coronary artery disease, aortic stenosis status post TAVR, complete heart block status post permanent pacemaker placement, heart failure with preserved ejection fraction, decompensated liver cirrhosis (ascites - esophageal varices, MELD score 15,Child Harry B), chronic anemia requiring weekly blood transfusion,??and obstructive sleep apnea on CPAP machine who presented to the emergency department for evaluation of bilateral lower extremity swelling, abdominal distension and weight gain and admitted with volume overload. ?? Diagnoses 1. ??Liver cirrhosis ??(K74.60) 2. ??Volume overload ??(E87.70) 3. ??Abdominal distention ??(R14.0) 4. ??Orthostatic hypotension ??(I95.1) 5. ??Hyperlipidemia ??(E78.5) 6. ??Diabetes mellitus type 2, insulin ??(E11.9) 7. ??Chronic kidney disease ??(N18.9) 8. ??Coronary artery disease ??(I25.10) 9. ??Aortic stenosis ??(I35.0) 10. ??Status post transcatheter aortic valve replacement (TAVR) using bioprosthesis ??(Z95.3) 11. ??Complete heart block ??(I44.2) 12. ??Status post placement of cardiac pacemaker ??(Z95.0) 13. ??Heart failure with preserved ejection fraction ??(I50.30) 14. ??Chronic anemia ??(D64.9) 15. ??Obstructive sleep apnea ??(G47.33) 16. ??Benign prostatic hyperplasia ??(N40.0) ? Liver cirrhosis (K74.60):??- Volume overload (E87.70):??- Abdominal distention (R14.0):??- Patient with history of??decompensated liver cirrhosis (MELD score 15, Child Harry B) with ascites and esophageal varices status post esophageal band 2 weeks ago at [facility].?? He presents with??30 pounds??weight gain,??bilateral lower extremity??swelling, and abdominal distention. - Lasix 60 mg intravenously 2 times daily.?? - US guided paracentesis.?? - continue home spironolactone.? Orthostatic hypotension (I95.1):??Patient reports that midodrine has been discontinued by his PCP.?? - will start midodrine 5 mg TID to help with blood pressure while diuresing.? Hyperlipidemia (E78.5):??Hold statin in setting of decompensated heart failure.? Diabetes mellitus type 2, insulin (E11.9):??- Lantus 10 units daily.?? - insulin sliding scale.? Chronic kidney disease (N18.9):??Creatinine at baseline.?? - continue??monitoring.? Coronary artery disease (I25.10):??- Aortic stenosis (I35.0) Status post transcatheter aortic valve replacement (TAVR) using bioprosthesis (Z95.3):??- Complete heart block (I44.2) Status post placement of cardiac pacemaker (Z95.0):??- Heart failure with preserved ejection fraction (I50.30):??- Need to clarify home medications in AM - he mentioned??has been adjusted??by his??PCP??recently??and??he brought??his medication list with him to the hospital today but was taken by one of??the health care worker??and never returned it to him.? Chronic anemia (D64.9):??-?? Thrombocytopenia (D69.6):??No signs of active bleeding - continue to monitor (transfuse for Hg bellow 7 and platelet bellow 20) - continue ferrous sulfate. ?? Obstructive sleep apnea (G47.33):??CPAP at night ?? Benign prostatic hyperplasia (N40.0):??need to clarify home medications in AM. ?? VTE Prophylaxis:??hold chemical VTE prophylaxis given thrombocytopenia Code Status:??DNR/DNI - confirmed with patient - he reports signing MOLST form at OSH. ? Histories Allergies Allergies ?(Active and Proposed Allergies Only) TiZANidine Hydrochloride? (Severity: Unknown severity, Onset: Unknown) ?Reactions: hallucination pregabalin? (Severity: Unknown severity, Onset: Unknown) ?Reactions: hallucination lisinopril? (Severity: Unknown severity, Onset: Unknown) ?Reactions: throat swelling ?Comments: throat swelling Latex? (Severity: Unknown severity, Onset: Unknown) ?Reactions: Rash ? Past Medical History/Problem List Active Problems(26) Abdominal distension Acute kidney injury Anemia Bacteremia CAD (coronary artery disease), LAD CHF (congestive heart failure) Chronic kidney disease Diabetes mellitus type 2, insulin Elevated serum creatinine Essential hypertension Hyperlipidemia Hyperlipidemia Hypotension Infective endocarditis Iron deficiency anemia Liver cirrhosis Lower extremity edema Neuropathy Old myocardial infarction, NSTEMI, s/p ZORA ANUJA on CPAP Pericardial effusion, s/p pericardiocentesis Prostate cancer Pulmonary HTN Status post placement of cardiac pacemaker Status post transcatheter aortic valve replacement (TAVR) using bioprosthesis Weight gain ? Past Surgical History Cardiac catheterization: 02/10/19 Echocardiogram: 09/16/18 Cardiac catheterization w/ZORA to OTW: 08/01/13 Endoscopy: 2011 Pericardiocentesis w/pericardial window: 2005 Trigger finger release of right middle finger ? Social History Alcohol Details:??Use: Past. ??Other: lastrt drink was 17 years ago. Employment/School Details:??Status: Retired. Home/Environment Details:??Living situation: Home with assistance. ??Lives with: Spouse. ??Other: has a visiting nurse that comes once a week. Nutrition/Health Details:??Diet: Diabetic. Substance Abuse Details:??Use: Never. Tobacco Details:??Use: Never (less than 100 in lifetime). Electronic Cigarette/Vaping Details:??Electronic Cigarette Use: Never. ? Family History No Family History documented. ? Medications Home Medications Alprazolam (ALPRAZolam 0.5 mg oral tablet)?TAKE 1 TABLET BY MOUTH TWICE DAILY NEEDED FOR ANXIETY Amoxicillin (amoxicillin 500 mg oral capsule)?2?capsule?1,000?Milligram?By Mouth?3 times a day?for 40?Days Amoxicillin (amoxicillin 500 mg oral capsule)?1?capsule?500?Milligram?By Mouth?2 times a day?for 90?Days?start new dosing 08/29/23 Aspirin (aspirin 81 mg oral delayed release tablet)?81?Milligram?1?tablet?By Mouth?Daily?Do not start aspirin until 06/16/2022 Atorvastatin (Lipitor 80 mg oral tablet)?1?tab(s)?80?Milligram?By Mouth?Daily Bethanechol (bethanechol 25 mg oral tablet)?25?Milligram?1?tablet?By Mouth?2 times a day Bumetanide (bumetanide 1 mg oral tablet)?1?Milligram?1?tablet?By Mouth?Daily Carvedilol (Coreg 6.25 mg oral tablet)?6.25?Milligram?1?tablet?By Mouth?2 times aday?Hold if systolic blood pressure is below 120 mmHg and/or heart rate is below 55 [id number] Ceftriaxone (ceftriaxone 2 gm injectable powder for injection)?2?gram?IVPB?Every 12 hours Clopidogrel (clopidogrel 75 mg oral tablet)?75?Milligram?1?tablet?By Mouth?Daily dapagliflozin (Farxiga 10 mg oral tablet)?1?tab(s)?10?Milligram?By Mouth?Daily Diclofenac Topical (diclofenac 1% topical gel)?4?gram?Topically?4 times a day?as needed?Pain , Moderate dulaglutide (Trulicity Pen 0.75 mg/0.5 mL subcutaneous [...] mg oral capsule)?0.4?Milligram?1?capsule?By Mouth?Daily?(LAST FILLED 10/01/22) ? Results Recent Labs BLOOD BANK Blood Type A Positive ()?? 02/24/2024 14:17 Antibody Screen Negative ()?? 02/24/2024 14:17 ?? BLOOD COUNT & DIFF WBC 4.5 k/mm3 ()?? 02/24/2024 14:40 RBC 2.73 m/mm3 (Low)?? 02/24/2024 14:40 Hgb 7.8 Gm/dL (Low)?? 02/24/2024 14:40 Hct 25.0 % (Low)?? 02/24/2024 14:40 MCV 91.6 femtoliters ()?? 02/24/2024 14:40 MCH 28.6 pg ()?? 02/24/2024 14:40 MCHC 31.2 g/dL (Low)?? 02/24/2024 14:40 Platelet Count 71 k/mm3 (Low)?? 02/24/2024 14:40 RDW-SD 57.5 femtoliters (High)?? 02/24/2024 14:40 MPV 12.1 femtoliters ()?? 02/24/2024 14:40 Nucleated RBC (Automated) 0.0 #/100 WBC'S ()?? 02/24/2024 14:40 Abs. NRBC 0.0 k/mm3 ()?? 02/24/2024 14:40 Abs. Neut 3.1 k/mm3 ()?? 02/24/2024 14:40 Abs. Lymph 0.6 k/mm3 (Low)?? 02/24/2024 14:40 Abs. Hodgeman 0.5 k/mm3 ()?? 02/24/2024 14:40 Abs. Eo 0.2 k/mm3 ()?? 02/24/2024 14:40 Abs. Baso 0.0 k/mm3 ()?? 02/24/2024 14:40 Neut % 69.3 % ()?? 02/24/2024 14:40 Lymph % 12.8 % (Low)?? 02/24/2024 14:40 Hodgeman % 11.7 % (High)?? 02/24/2024 14:40 Eos % 4.9 % ()?? 02/24/2024 14:40 Baso % 0.9 % ()?? 02/24/2024 14:40 Imm Gran 0.4 % ()?? 02/24/2024 14:40 Abs. Imm Gran 0.0 k/mm3 ()?? 02/24/2024 14:40 ?? CARDIAC Nt-Probnp 587 pg/mL (High)?? 02/24/2024 14:40 High Sensitivity Troponin (HSTnT) 35 ng/L (High)?? 02/24/2024 17:44 ?? CHEM GENERAL Sodium 140 mmol/L ()?? 02/24/2024 14:40 Potassium 3.5 mmol/L (Low)?? 02/24/2024 14:40 Chloride 103 mmol/L ()?? 02/24/2024 14:40 Bicarbonate Level 25 mmol/L ()?? 02/24/2024 14:40 Anion Gap 12 ()?? 02/24/2024 14:40 Glucose Level 221 mg/dL (High)?? 02/24/2024 14:40 Glucose, POC 270 mg/dL (High)?? 02/24/2024 21:38 BUN 41 mg/dL (High)?? 02/24/2024 14:40 Creatinine-Blood 1.38 mg/dL (High)?? 02/24/2024 14:40 Estimated GFR Creatinine 52 ML/MIN/1.73 M2 ()?? 02/24/2024 14:40 Calcium 7.9 mg/dL (Low)?? 02/24/2024 14:40 Protein, Total 4.9 Gm/dL (Low)?? 02/24/2024 14:40 Albumin 2.9 Gm/dL (Low)?? 02/24/2024 14:40 AG Ratio 1.5 ()?? 02/24/2024 14:40 Alkaline Phosphatase 167 units/L (High)?? 02/24/2024 14:40 AST (SGOT) 43 units/L (High)?? 02/24/2024 14:40 ALT (SGPT) 38 units/L ()?? 02/24/2024 14:40 Bilirubin, Total 0.9 mg/dL ()?? 02/24/2024 14:40 ?? URINE OTHER Est Creatinine Clearance 42.55 mL/min ()?? 02/24/2024 15:45 ? EKG study * Event Display: ECG 12-Lead Authored Date: Please click on pdf link to open report * Event Display: ECG 12-Lead Authored Date: Ventricular Rate: 70 BPM Atrial Rate: 70 BPM P-R Interval: 256 ms QRS Duration: 124 ms Q-T Interval: 474 ms QTC Calculation(Bazett): 511 ms P [place]: 58 degrees R Helena: -44 degrees T Helena: 123 degrees Atrial-sensed ventricular-paced rhythm with prolonged AV conduction with occasional Premature ventricular complexes Abnormal ECG When compared with ECG of 12-AUG-2023 17:45, Premature ventricular complexes are now Present Confirmed by KIRBY VERGARA MD ([id number]) on 02/24/2024 4:16:49 PM [place]: KIRBY VERGARA MD Cardiology * Event Display: Cardiac Rhythm Strips Authored Date: * Event Display: Cardiac Rhythm Strips Authored Date: * Event Display: Cardiac Rhythm Strips Authored Date: Hospital Progress note * Trinidad THORNE, Anh Shine: PERFORM, SIGN, VERIFY Event Display: Progress Note Hospital Authored Date: Patient: GILLES WRIGHT Age: 78 years Sex: Male : 1945 Associated Diagnoses: None Author: Trinidad THORNE, Anh Shine Findings Problem Related to Alteration in Cardiac Function (new) : Alteration in Cardiac Function/new 02/29/2024 8:25 EDT Alteration in Cardiac Status Related to Other: hypotension Goals & Outcomes, Cardiac Status Pt will resume/maintain adequate cardiac output, Pt will resume/maintain adequate hemodynamic status, Pt will resume/maintain adequate respiratory function, Pt will resume/maintain intact neuro function, Pt will maintain adequate GI/ function appropriate for pt, Pt will maintain adequate nutrition status, Pt/caregiver will state understanding of diagnosis, Pt/caregiver will state strategies to reduce risk factors Cardiac Interventions Implemented Assess/monitor cardiac status, Assess/monitor neuro status, Assess/monitor respiratory status, Assess for tolerance of IV infusions; verify rate & dose, Call/Report variances in ECG to provider, Document & Monitor O2 Sats; Administer O2 as ordered, Ensure adequate caloric intake, If no bowel movement in 3 days activate bowel regime, Monitor & document daily weight, Monitor anticoagulation values, Monitor ECG w/administration of antiarrhythmics (CO 13.420), Obtain 12 Lead ECG and CXR as ordered, Prep pt for treatments & procedures, Teach/encourage deep breath & cough exercises, Teach/encourage use of incentive spirometer, Team conversation regarding appropriate level of care, Turn & reposition Q2 hours per activity restrictions, Useadjunctive therapies per Standards of Practice Goals/Interventions, Cardiac Yes Cardiac, Problem Start 02/24/2024 22:34 Reviewed Plan with, Cardiac Status Patient Patient Progression, Cardiac Status Patient progressing according to plan . Nursing Data Cardiac Data. : Cardiac Data. 02/29/2024 8:20 EDT Nail Bed Color, Fingers Bernard Nail Bed Color, Toes Bernard Skin Temperature Upper Extremities Warm Skin Temperature Lower Extremities Warm Heart Rhythm Regular Cardiac Rhythm Paced Capillary Refill < 3 seconds director information security Yes Cardiovascular WNL except . Evaluation (Pt awake and alert ox3. Pt denies c/p or sob. Monitor V paced. Lungs clr. Pt oob with walker steady gait noted. VSS. Pt awaiting d/c order. Will continue to monitor and report any changes.) * Emma Blackburn RN: MODIFY, PERFORM, SIGN, VERIFY, SIGN Event Display: Progress Note Hospital Authored Date: Patient: GILLES WRIGHT Age: 78 years Sex: Male : 1945 Associated Diagnoses: None Author: Emma Blackburn RN Findings Problem Related to Alteration in Cardiac Function (new) : Alteration in Cardiac Function/new 02/28/2024 21:00 EDT Alteration in Cardiac Status Related to Other: hypotension Goals & Outcomes, Cardiac Status Pt will resume/maintain adequate cardiac output, Pt will resume/maintain adequate hemodynamic status, Pt will resume/maintain adequate respiratory function, Pt will resume/maintain intact neuro function, Pt will maintain adequate GI/ function appropriate for pt, Pt will maintain adequate nutrition status, Pt/caregiver will state understanding of diagnosis, Pt/caregiver will state strategies to reduce risk factors Cardiac Interventions Implemented Assess/monitor cardiac status, Assess/monitor neuro status, Assess/monitor respiratory status BH Goals/Interventions, Cardiac Yes Cardiac, Problem Start 02/24/2024 22:34 Reviewed Plan with, Cardiac Status Patient Patient Progression, Cardiac Status Patient progressing according to plan . Evaluation Patient alert and oriented X3. Telemetry VPaced in 70's. lungs clear with auscultation. Pt denies any CP and SOB at this time. Pt resting in bed.Call allen within reach. Bed alarms on.will continue tomonitor and report any changes to MD.. * Alvaro Conner DO: PERFORM Event Display: Progress Note Hospital Authored Date: [id number] Patient: ??GILLES WRIGHT ? Age:??78 Years?Sex:??Male?:??1945?? Subjective Seen in pleasant spirits without complaint Hemodynamically stable without acute??overnight events DC tomorrow ?? Review of Systems Constitutional,??eyes, skin, head/neck,??ENMT, respiratory, cardiac, gastrointestinal, genitourinary, endocrine, musculoskeletal,??neurologic, psychiatric, immunologic??systems reviewed and negative??except as described above. Objective Measurements?? Height: 175 cm (02/28/24) Weight: 82.4 kg (02/28/24) Dry Weight: 85.6 kg (02/24/24) Body Mass Index:??27.43 kg/m2??High (02/27/24) ? Vital Signs?? Temperature: 98.8 DegF (02/28/24 08:37:00) Temperature Route: Oral (02/28/24 08:37:00) Pulse Rate: 81 bpm (02/28/24 08:37:00) Respiratory Rate: 18 br/min (02/28/24 08:37:00) Systolic Blood Pressure: 104 mm Hg (02/28/24 08:37:00) Diastolic Blood Pressure:??44 mm Hg??Low (02/28/24 08:37:00) Blood pressure sites: Arm, right (02/28/24 08:37:00) Mean Arterial Pressure: 64 mm Hg (02/28/24 08:37:00) Pulse Pressure: 60 mm Hg (02/28/24 08:37:00) Oxygen Saturation: 95 % (02/28/24 08:37:00) Mode of Delivery (Oxygen): Room air (02/28/24 08:37:00) Early Warning Score: 5 (02/28/24 12:48:25) ? Intake/Output? 02/23 18:08 02/27 07:00 02/26 07:00 02/25 07:00 02/24 07:00 ?? 02/27 15:14 02/27 15:14 02/27 06:59 02/26 06:59 02/25 06:59 Intake ? 2170 ?360 ?840 ?560 ?410 Output ? 7200 ?0 ?750 ? 1600 ? 4100 Net Total ?-5030 ?360 ? 90 ?-1040 ?-3690 ? Urine Count ?6 ?2 ?1 ?1 ?2 ? Mobility & Ambulation Level Mobility & Ambulation Level Activity Assistance: One person assistance (02/26/24) Activity Status ADL: Bathroom privileges, Up with assistance (02/26/24) Ambulatory devices needed: Walker (02/27/24) Range of Motion LLE: Active (02/25/24) Range of Motion LUE: Active (02/25/24) Range of Motion RLE: Active (02/25/24) Range of Motion RUE: Active (02/25/24) Repositioning: Self (02/26/24) ? Physical Exam ?Constitutional: Alert, in no acute distress. ?Head: Normocephalic. ?Eyes: Pupils are equal, round and reactive to light. Extraocular muscles intact. No pallor or scleral icterus ?Ear, Nose and Throat: mucous membranes moist. Ears and nose - no obvious deformities. ?Neck: No JVD or bruits. ?Respiratory:??Clear to auscultation. No wheezing or rhonchi.??No use of accessory muscles. ?Cardiovascular:??S1 S2 regular. No murmurs, rubs or gallops. ?Gastrointestinal:??Abdomen soft, non-tender, distended. ?Extremities: bilateral lower extremity edema. ?Neurologic:??AAOx3, Cranial nerves II-XII grossly intact. Speech normal, no facial droop. No focal neurological deficits. Moves all extremities spontaneously. _ Inpatient Medications Medications (14) Active SCHEDULED: (6) Insulin Glargine 100 units/mL Inj (Lantus Inj) ??12 units 0.12 mL, Subcutaneous Injection, Daily atbedtime Insulin Lispro 100 units/mL Inj (Insulin LISPRO Sliding Scale) ??4-16 units, Subcutaneous Injection, 3 times a day before meals Midodrine 5 mg Tablet (midodrine 5 mg oral tablet) ??10 mg, By Mouth, 3 times a day NaCl 0.9% Flush 3ml (NaCL 0.9% Flush) ??3 mL, IV Push, Every 8 hours Spironolactone 25 mg Tablet (spironolactone 25 mg oral tablet) ??50 mg, By Mouth, Daily Torsemide 20 mg tablet (torsemide 20 mg oral tablet) ??40 mg 2 tablet, By Mouth, Daily CONTINUOUS: (0) PRN: (8) Acetaminophen 325 mg Tablet (Acetaminophen Tablet) ??650 mg, By Mouth, Every 4 hours Dextromethorphan-Guaifenesin 20 mg-200 mg/10 mL Liqu UD (Robitussin DM Liquid) ??10 mL, By Mouth, Every 4 hours Docusate Sodium 100 mg Capsule (Docusate Sodium Capsule) ??100 mg 1 capsule, By Mouth, 2 times a day Melatonin 3 mg Tablet (Melatonin Tablet) ??3 mg, By Mouth, Daily at bedtime NaCl 0.9% Flush 3ml (NaCL 0.9% Flush) ??3 mL, IV Push, Every 8 hours Polyethylene Glycol 17 Gm Powder (MiraLax Powder) ??17 Gm 1 pack/packet, By Mouth, Daily Senna Tablet ??8.6 mg 1 tablet, By Mouth, 2 times a day Simethicone 80 mg Chewable Tablet (Simethicone Tablet) ??80 mg, Chew, 3 times a day ? Assessment/Plan Chief Complaint: Patient coming from home for bilat leg swelling and abd distention. Patient has nocomplaints. Visiting nurse came and stated he grained 4 lbs since thursday. had blood transfusion theother day per ems ?? Diagnoses Thrombocytopenia ??(D69.6) 1. ??Liver cirrhosis ??(K74.60) 2. ??Volume overload ??(E87.70) 3. ??Abdominal distention ??(R14.0) 4. ??Orthostatic hypotension ??(I95.1) 5. ??Hyperlipidemia ??(E78.5) 6. ??Diabetes mellitus type 2, insulin ??(E11.9) 7. ??Chronic kidney disease ??(N18.9) 8. ??Coronary artery disease ??(I25.10) 9. ??Aortic stenosis ??(I35.0) 10. ??Status post transcatheter aortic valve replacement (TAVR) using bioprosthesis ??(Z95.3) 11. ??Complete heart block ??(I44.2) 12. ??Status post placement of cardiac pacemaker ??(Z95.0) 13. ??Heart failure with preserved ejection fraction ??(I50.30) 14. ??Chronic anemia ??(D64.9) 15. ??Obstructive sleep apnea ??(G47.33) 16. ??Benign prostatic hyperplasia ??(N40.0) ?? Assessment:??GILLES WRIGHT??is a 78-year-old male patient with??medical history including chronickidney disease, coronary artery disease, aortic stenosis status post TAVR, complete heart block status post permanent pacemaker placement, heart failure with preserved ejection fraction, decompensated liver cirrhosis (ascites - esophageal varices, MELD score 15, Child Harry B), chronic anemia requiring weekly blood transfusion,??orthostatic hypotension, hyperlipidemia, diabetes mellitus,??and obstructive sleep apnea on CPAP machine who presented to the emergency department for evaluation of bilateral lower extremity swelling, abdominal distension and weight gain and admitted with volume overload. ?? Liver cirrhosis (K74.60):??- Volume overload (E87.70):??- Abdominal distention (R14.0):??- Patient with history of??decompensated liver cirrhosis (MELD score 15, Child Harry B) with ascites and esophageal varices status post esophageal band 2 weeks ago at [facility].?? He presents with??30 pounds??weight gain,??bilateral lower extremity??swelling, and abdominal distention. - Lasix 60 mg intravenously 2 times daily held, reassess creatinine tomorrow - US??ascites??negative - continue spironolactone.? Orthostatic hypotension (I95.1): - midodrine 5 mg TID to help with blood pressure while diuresing.? Hyperlipidemia (E78.5):??Hold statin in setting of decompensated heart failure.? Diabetes mellitus type 2, insulin (E11.9):?? - Lantus 10 units daily.?? - insulin sliding scale.? Chronic kidney disease (N18.9):??Creatinine at baseline.?? - continue??monitoring.? Coronary artery disease (I25.10):??- Aortic stenosis (I35.0) Status post transcatheter aortic valve replacement (TAVR) using bioprosthesis (Z95.3):??- Complete heart block (I44.2) Status post placement of cardiac pacemaker (Z95.0):??- Heart failure with preserved ejection fraction (I50.30):??- Need to clarify home medications in AM - he mentioned??has been adjusted??by his??PCP??recently??and??he brought??his medication list with him to the hospital today but was taken by one of??the health care worker??and never returned it to him.? Chronic anemia (D64.9):??-?? Thrombocytopenia (D69.6):??No signs of active bleeding - continue to monitor (transfuse for Hg bellow 7 and platelet bellow 20) - continue ferrous sulfate. ?? Obstructive sleep apnea (G47.33):??CPAP at night ?? Benign prostatic hyperplasia (N40.0):??need to clarify home medications ?? VTE Prophylaxis:??hold chemical VTE prophylaxis given thrombocytopenia Code Status:??DNR/DNI - confirmed with patient - he reports signing MOLST form at OSH. Note * Anh Abdi RN: PERFORM Event Display: Discharge/Transfer Note Hospital Authored Date: [id number] Nursing Discharge Note Entered On: 02/29/2024 11:52 EDT Performed On: 02/29/2024 11:50 EDT by Anh Abdi RN Nursing Discharge Note 2 Discharge Time : 02/29/2024 11:50 EDT Discharge Level of Care at Discharge : Home/Intermediate/Foster Care Patient Left Unit Via : Wheelchair Patient Accompanied Off Unit with : Responsible adult DC Instructions Provided & Signed by Pt : Yes Patient Understands D/C Instructions : Yes Patient Instructions Discharge Signed : Yes Discharge Comments : IV and monitor removed. IV sites stable. Pt awake and alert. Pt d/c home with instructions explained to pt. Scripts available at our pharmacy. Did Pt have Specialty Bed or Wound Vac : No Trinidad THORNE, Anh Shine - 02/29/2024 11:50 EDT * Dalila GUZMAN, Alvaro Wheatley: PERFORM Event Display: Discharge/Transfer Note Hospital Authored Date: [id number] Patient: ??GILLES WRIGHT ? Age:??78 Years?Sex:??Male?:??1945?? Patient Information Discharge Location: Primary Care Physician: Roberto Carlos Arzola Admit Date/Time: 02/24/24 18:08 Discharge Disposition Discharge Disposition: Home: No Services Discharge Diagnosis Liver cirrhosis (K74.60) Volume overload (E87.70) Abdominal distention (R14.0) Orthostatic hypotension (I95.1) Hyperlipidemia (E78.5) Diabetes mellitus type 2, insulin (E11.9) Chronic kidney disease (N18.9) Coronary artery disease (I25.10) Aortic stenosis (I35.0) Status post transcatheter aortic valve replacement (TAVR) using bioprosthesis (Z95.3) Complete heart block (I44.2) Status post placement of cardiac pacemaker (Z95.0) Heart failure with preserved ejection fraction (I50.30) Chronic anemia (D64.9) Obstructive sleep apnea (G47.33) Benign prostatic hyperplasia (N40.0) Thrombocytopenia (D69.6) _ Discharge Medications Alprazolam (ALPRAZolam 0.5 mg oral tablet)?TAKE 1 TABLET BY MOUTH TWICE DAILY NEEDED FOR ANXIETY Aspirin (aspirin 81 mg oral delayed release tablet)?81?Milligram?1?tablet?By Mouth?Daily?Do not start aspirin until 06/16/2022 Atorvastatin (Lipitor 80 mg oral tablet)?1?tab(s)?80?Milligram?By Mouth?Daily Bethanechol (bethanechol 25 mg oral tablet)?25?Milligram?1?tablet?By Mouth?2 times a day dapagliflozin (Farxiga 10 mg oral tablet)?1?tab(s)?10?Milligram?By Mouth?Daily Diclofenac Topical (diclofenac 1% topical gel)?4?gram?Topically?4 times a day?as needed?Pain , Moderate dulaglutide (Trulicity Pen 0.75 mg/0.5 mL subcutaneous [...] mg oral delayed release tablet)?1?tab(s)?40?Milligram?By Mouth?Daily Spironolactone (spironolactone 25 mg oral tablet)?50?Milligram?By Mouth?Daily Tamsulosin (tamsulosin 0.4 mg oral capsule)?0.4?Milligram?1?capsule?By Mouth?Daily?(LAST FILLED 10/01/22) torsemide (torsemide 20 mg oral tablet)?2?tab(s)?40?Milligram?By Mouth?Daily ? Vaccinations and Immunoprophylaxis influenza virus vaccine, inactivated: 0.7 mL (07/14/23 10:49:00) pneumococcal 23-valent vaccine: 0.5 Unknown (07/16/20 07:00:00) SARS-CoV-2 (COVID-19) mRNA-1273 vaccine: 0.25 Unknown (10/11/21 07:00:00) SARS-CoV-2 (COVID-19) mRNA-1273 vaccine: 0.5 Unknown (11/14/20 07:00:00) SARS-CoV-2 (COVID-19) mRNA-1273 vaccine: 0.5 Unknown (10/17/20 07:00:00) tetanus-diphtheria toxoids (Td): 0.5 Unknown (06/16/19 08:00:00) ?? Hospital Course GILLES WRIGHT is a 78-year-old male patient with medical history including chronic kidney disease, coronary artery disease, aortic stenosis status post TAVR, complete heart block status post permanent pacemaker placement, heart failure with preserved ejection fraction, decompensated liver cirrhosis (ascites - esophageal varices, MELD score 15, Child Harry B), chronic anemia requiring weekly blood transfusion, orthostatic hypotension, hyperlipidemia, diabetes mellitus, and obstructive sleep apnea on CPAP machine who presented to the emergency department for evaluation of bilateral lower extremity swelling, abdominal distension and weight gain and admitted with volume overload. He??underwenta??course of IV diuretics with subsequent transition to PO diuretics.??He??will follow with PCP andcardiology. All discharge medications, instructions, and questions were discussed with the patient prior to leaving the hospital.? Liver cirrhosis (K74.60): - Volume overload (E87.70): - Abdominal distention (R14.0): - ??Patient with history of decompensated liver cirrhosis (MELD score 15, Child Harry B) with ascites and esophageal varices status post esophageal band 2 weeks ago at [facility]. ??He presents with 30 pounds weight gain, bilateral lower extremity swelling, and abdominal distention. ??- Torsemide 40 mg intravenously daily ??- US ascites negative ??- continue spironolactone. valuate increasing outpatient to maintain appropriate ratio with diuretics ? Orthostatic hypotension (I95.1): ??- midodrine 10 mg TID ? Hyperlipidemia (E78.5): statin ? Diabetes mellitus type 2, insulin (E11.9): ??- Resume home regimen ? Chronic kidney disease (N18.9): Creatinine at baseline. ??- continue monitoring. ? Coronary artery disease (I25.10): - Aortic stenosis (I35.0) Status post transcatheter aortic valve replacement (TAVR) using bioprosthesis (Z95.3): - Complete heart block (I44.2) Status post placement of cardiac pacemaker (Z95.0): - Heart failure with preserved ejection fraction (I50.30): - Continue home medicine, , hold coreg for BP at this time ? Chronic anemia (D64.9): - Thrombocytopenia (D69.6): No signs of active bleeding ??- continue to monitor (transfuse for Hg bellow 7 and platelet bellow 20) ??- continue ferrous sulfate. ?? Obstructive sleep apnea (G47.33): CPAP at night ? Benign prostatic hyperplasia (N40.0): need to clarify home medications ? VTE Prophylaxis: hold chemical VTE prophylaxis given thrombocytopenia Code Status: DNR/DNI - confirmed with patient - he reports signing MOLST form at OSH. ?? Objective Measurements?? Height: 175 cm (02/29/24) Weight: 80.8 kg (02/29/24) Dry Weight: 85.6 kg (02/24/24) Body Mass Index:??27.43 kg/m2??High (02/27/24) ? Vital Signs?? Temperature: 98.7 DegF (02/29/24 09:56:00) Temperature Route: Oral (02/29/24 09:56:00) Pulse Rate: 87 bpm (02/29/24 09:56:00) Respiratory Rate: 18 br/min (02/29/24 09:56:00) Systolic Blood Pressure: 125 mm Hg (02/29/24 09:56:00) Diastolic Blood Pressure: 55 mm Hg (02/29/24 09:56:00) Blood pressure sites: Arm, right (02/29/24 09:56:00) Mean Arterial Pressure: 78 mm Hg (02/29/24 09:56:00) Pulse Pressure: 70 mm Hg (02/29/24 09:56:00) Oxygen Saturation: 96 % (02/29/24 09:56:00) Mode of Delivery (Oxygen): Room air (02/29/24 09:56:00) FiO2: 21 % (02/29/24 03:03:00) Early Warning Score: 3 (02/29/24 10:17:53) ? . Physical Exam ?Constitutional: Alert, in no acute distress. ?Head: Normocephalic. ?Eyes: Pupils are equal, round and reactive to light. Extraocular muscles intact. No pallor or scleral icterus ?Ear, Nose and Throat: mucous membranes moist. Ears and nose - no obvious deformities. ?Neck: No JVD or bruits. ?Respiratory:??Clear to auscultation. No wheezing or rhonchi.??No use of accessory muscles. ?Cardiovascular:??S1 S2 regular. No murmurs, rubs or gallops. ?Gastrointestinal:??Abdomen soft, non-tender, distended. ?Extremities: bilateral lower extremity edema. ?Neurologic:??AAOx3, Cranial nerves II-XII grossly intact. Speech normal, no facial droop. No focal neurological deficits. Moves all extremities spontaneously. Patient Education Titles Web[employer] Ignite Patient Education - Heart Failure Discharge Instructions for Heart Failure?? Follow-Up Appointments Added Follow Up ?Time Frame ?Comments [facility]CCA Blayne TAPIA, Roberto Carlos Núñez Results Discharge Labs BLOOD BANK Blood Type A Positive ()?? 02/24/2024 14:17 Antibody Screen Negative ()?? 02/24/2024 14:17 ?? BLOOD COUNT & DIFF WBC 8.0 k/mm3 ()?? 02/28/2024 08:17 RBC 2.78 m/mm3 (Low)?? 02/28/2024 08:17 Hgb 7.9 Gm/dL (Low)?? 02/28/2024 08:17 Hct 25.6 % (Low)?? 02/28/2024 08:17 MCV 92.1 femtoliters ()?? 02/28/2024 08:17 MCH 28.4 pg ()?? 02/28/2024 08:17 MCHC 30.9 g/dL (Low)?? 02/28/2024 08:17 Platelet Count 70 k/mm3 (Low)?? 02/28/2024 08:17 RDW-SD 58.4 femtoliters (High)?? 02/28/2024 08:17 MPV 12.4 femtoliters ()?? 02/28/2024 08:17 Nucleated RBC (Automated) 0.0 #/100 WBC'S ()?? 02/28/2024 08:17 Abs. NRBC 0.0 k/mm3 ()?? 02/28/2024 08:17 Abs. Neut 3.1 k/mm3 ()?? 02/24/2024 14:40 Abs. Lymph 0.6 k/mm3 (Low)?? 02/24/2024 14:40 Abs. Hodgeman 0.5 k/mm3 ()?? 02/24/2024 14:40 Abs. Eo 0.2 k/mm3 ()?? 02/24/2024 14:40 Abs. Baso 0.0 k/mm3 ()?? 02/24/2024 14:40 Neut % 69.3 % ()?? 02/24/2024 14:40 Lymph % 12.8 % (Low)?? 02/24/2024 14:40 Hodgeman % 11.7 % (High)?? 02/24/2024 14:40 Eos % 4.9 % ()?? 02/24/2024 14:40 Baso % 0.9 % ()?? 02/24/2024 14:40 Imm Gran 0.4 % ()?? 02/24/2024 14:40 Abs. Imm Gran 0.0 k/mm3 ()?? 02/24/2024 14:40 ?? CARDIAC Nt-Probnp 587 pg/mL (High)?? 02/24/2024 14:40 High Sensitivity Troponin (HSTnT) 35 ng/L (High)?? 02/24/2024 17:44 ?? CHEM GENERAL Sodium 136 mmol/L ()?? 02/28/2024 08:17 Potassium 3.9 mmol/L ()?? 02/28/2024 08:17 Chloride 101 mmol/L ()?? 02/28/2024 08:17 Bicarbonate Level 27 mmol/L ()?? 02/28/2024 08:17 Anion Gap 8 ()?? 02/28/2024 08:17 Glucose Level 133 mg/dL (High)?? 02/28/2024 08:17 Glucose, POC 141 mg/dL (High)?? 02/29/2024 07:51 BUN 48 mg/dL (High)?? 02/28/2024 08:17 Creatinine-Blood 1.35 mg/dL (High)?? 02/28/2024 08:17 Estimated GFR Creatinine 53 ML/MIN/1.73 M2 ()?? 02/28/2024 08:17 Calcium 7.6 mg/dL (Low)?? 02/28/2024 08:17 Magnesium 2.2 mg/dL ()?? 02/26/2024 08:57 Protein, Total 4.8 Gm/dL (Low)?? 02/25/2024 06:26 Albumin 2.7 Gm/dL (Low)?? 02/25/2024 06:26 AG Ratio 1.5 ()?? 02/24/2024 14:40 Alkaline Phosphatase 160 units/L (High)?? 02/25/2024 06:26 AST (SGOT) 32 units/L ()?? 02/25/2024 06:26 ALT (SGPT) 29 units/L ()?? 02/25/2024 06:26 Bilirubin, Total 0.8 mg/dL ()?? 02/25/2024 06:26 Bilirubin, Direct 0.3 mg/dL ()?? 02/25/2024 06:26 Bilirubin, Indirect 0.5 mg/dL ()?? 02/25/2024 06:26 ? COAG INR 1.2 (High)?? 02/25/2024 06:25 Protime (PT) 12.7 seconds (High)?? 02/25/2024 06:25 ?? URINE OTHER Est Creatinine Clearance 43.50 mL/min ()?? 02/28/2024 08:52 ? 39??minutes spent on discharge * Trinidad THORNE, Anh Shine: PERFORM Event Display: Patient Education/Instruction Authored Date: Inpatient Adult Discharge Instructions. [place] [id number] Name: GILLES WRIGHT : 1945?? Visit: 02/24/2024 18:08?? Current Date: 02/29/2024 11:24 ?? Account: [id number]?? Inpatient Adult Discharge Instructions We would like [...] and their families. Surveys are administered by [employer]. ?? If further treatment with your primary care physician or another doctor is recommended, it is important for you to keep the appointment. Call your primary care physician or return to the Emergency Department immediately if your condition worsens, fails to improve, or new symptoms develop. If you need to find a doctor, you can call [facility] [employer]™ Link for a referral at [phone] or toll free at [phone]) or log in to [email or web address].. ?? [facility], in keeping with [facility] guidance, no longer requires face masks for [...] a health care zoe of your choosing. [employer] is a website that allows you to securely view your medical information including your hospital discharge summary, office visit summaries, medications and follow-up visits. You can also request appointments, renew medications, and request access to your medical information using a health care zoe of your choosing, or just ask a question. You can enroll at [email or web address] or register during your next office visit. You have been discharged from [facility], Patient Care Unit: M5??. If you have any questions regarding these instructions, including results of studies pending, afteryou leave, please call us and we will be happy to assist you 06/04. [facility] Your Care Team Attending Physician Alvaro Conner DO?? Consulting Providers Alvaro Conner DO?? Discharging Providers Alvaro Conner DO Reason for Your Visit Patient coming from home for bilat leg swelling and abd distention. Patient has no complaints. Visiting nurse came and stated he grained 4 lbs since thursday. had blood transfusion the other day per ems?? Your Diagnosis Liver cirrhosis Volume overload Abdominal distention Orthostatic hypotension Hyperlipidemia Diabetes mellitus type 2, insulin Chronic kidney disease Coronary artery disease Aortic stenosis Status post transcatheter aortic valve replacement (TAVR) using bioprosthesis Complete heart block Status post placement of cardiac pacemaker Heart failure with preserved ejection fraction Chronic anemia Obstructive sleep apnea Benign prostatic hyperplasia Acute on chronic heart failure with preserved ejection fraction (HFpEF) Thrombocytopenia Tests Performed Below is a partial list of the tests performed during your hospitalization. You may have had other tests and procedures not included in this list. Please discuss all test results with your provider. Basic Metabolic Panel CBC CBC w/ Differential Comprehensive Metabolic Panel GLUCOSE POC H + H High??Sensitivity??Troponin T INR LFT's Magnesium Level ProBNP Troponin T, High Sensitivity Type and Screen Ascites (US) XR Chest 2 Views Frontal and Lat Hold Lavender Tube (BB)?? Primary Care Provider Roberto Carlos Arzola? Advance Directive Health Care Proxy on File Yes - Health Care Proxy Discharge Vitals Temperature: 98.7 DegF Height: 175 cm Pulse Rate: 87 bpm Weight: 80.8 kg Respiratory Rate: 18 br/min Body Mass Index:??27.43 kg/m2??High Systolic Blood Pressure: 125 mm Hg Body surface area: 2.02 Diastolic Blood Pressure: 55 mm Hg ?? Oxygen Saturation: 96 % ?? Studies Pending All studies ordered during this hospital stay have been completed unless listed below. Please discuss all pending results with your provider listed above in these instructions. ?? Hold Lavender Tube (BB)?? What to do next Instructions From Your Doctor ?? Orders? 02/29/24 10:58:00 EDT?? You Need to Schedule the Following Appointments Follow Up with??[facility] Where: [address] [place] [address]- Follow Up with??Roberto Carlos Arzola Where: [address] [place] [address]- Discharge Medications GILLES WRIGHT :1945 Visit Date:02/24/2024 Medications: Please continue your medications until treatment is completed or stopped by your provider. Medications not listed below should be discontinued. Discuss any questions related to medications with your provider. What How Much When Instructions Next Dose New Spironolactone (spironolactone 25 mg oral tablet) 50 Milligram Oral Daily Pickup at [facility] Tomorrow New torsemide (torsemide 20 mg oral tablet) 2 tab(s) Oral Daily Pickup at [facility] Tomorrow Unchanged Alprazolam (ALPRAZolam 0.5 mg oral tablet) TAKE 1 TABLET BY MOUTH TWICE DAILY NEEDED FOR ANXIETY ?? as needed Unchanged Aspirin (aspirin 81 mg oral delayed release tablet) 1 tab(s) Oral Daily Do not start aspirin until 2021 ?? Tomorrow Unchanged Atorvastatin (Lipitor 80 mg oral tablet) 1 tab(s) Oral Daily Tonight Unchanged Bethanechol (bethanechol 25 mg oral tablet) 1 tab(s) Oral Twice a day resume Unchanged dapagliflozin (Farxiga 10 mg oral tablet) 1 tab(s) Oral Daily Tomorrow Unchanged Diclofenac Topical (diclofenac 1% topical gel) 4 gram Topically 4 times a day as needed for Pain , Moderate as needed Unchanged dulaglutide (Trulicity Pen 0.75 mg/ 0.5 mL subcutaneous solution) 0.5 Milliliter Subcutaneous Injection Every week EVERY THURSDAY ?? Thursday Unchanged Durable Medical Equipment (Blood Pressure Monitor) See instructions Blood pressure cuff ?? ICD: I10 ?? Unchanged Ezetimibe (Zetia 10 mg oral tablet) 1 tab(s) Oral Daily Tomorrow Unchanged Ferrous Sulfate (ferrous sulfate 325 mg oral enteric coated tablet) 1 tab(s) Oral Daily Tomorrow Unchanged Finasteride (finasteride 5 mg oral tablet) 1 tab(s) Oral Daily Tomorrow Unchanged Folic Acid (folic acid 0.8 mg oral tablet) TAKE 1 TABLET BY MOUTH EVERY DAY ?? Tomorrow Unchanged Gabapentin (gabapentin 300 mg oral capsule) 1 capsule Oral Twice a day Tonight Unchanged Insulin Aspart (NovoLOG FlexTouch) See instructions 2-25 units Subcutaneous Injection 3 times a day before meals and bedtime ?? Unchanged insulin degludec (Tresiba FlexTouch 200 units/ mL subcutaneous solution) INJECT 60 UNITS UNDER THE SKIN AT BEDTIME ?? Unchanged Lactulose (lactulose 10 gm/ 15 ml oral syrup) See instructions Take 15 mL as needed for constipation, please maintain daily bowel movement, hold for excessive loose stool or diarrhea (more than 3 times a day)., As needed for Other ?? as needed Unchanged Midodrine (midodrine 10 mg oral tablet) 1 tab(s) Oral 3 times a day To help maintain systolic blood pressure above 110-120 mmHg ?? Pickup at [facility] 3 resume Unchanged Pantoprazole (pantoprazole 40 mg oral delayed release tablet) 1 tab(s) Oral Daily Tomorrow Unchanged Tamsulosin (tamsulosin 0.4 mg oral capsule) 1 capsule Oral Daily (LAST FILLED ) ?? resume Pharmacy Information [facility]: [address] [place], [place] [id number] [phone] ?? What How Much When Comments Stop Taking Amoxicillin (amoxicillin 500 mg oral capsule) 1 capsule Oral Twice a day Duration: 90 Days start new dosing ?? Stop Taking Amoxicillin (amoxicillin 500 mg oral capsule) 2 capsule Oral 3 times a day Duration: 40 Days Stop Taking Bumetanide (bumetanide 1 mg oral tablet) 1 tab(s) Oral Daily Stop Taking Carvedilol (Coreg 6.25 mg oral tablet) 1 tab(s) Oral Twice a day Hold if systolic blood pressure is below 120 mmHg and/ or heart rate is below 55 [id number] ?? Stop Taking Ceftriaxone (ceftriaxone 2 gm injectable powder for injection) 2 gram IV Piggyback Every 12 hours Stop Taking Clopidogrel (clopidogrel 75 mg oral tablet) 1 tab(s) Oral Daily Prescription Given During Visit Midodrine (midodrine 10 mg oral tablet) - 1 tablet = 10 mg, By Mouth, 3 times a day, # 90 tablet, 2Refills, To help maintain systolic blood pressure above 110- 120 mmHg, [facility], [address] [place] [phone]?? Spironolactone (spironolactone 25 mg oral tablet) - 50 mg, By Mouth, Daily, # 60 tablet, 0 Refills,[facility], [address] [place] [phone]?? torsemide (torsemide 20 mg oral tablet) - 2 tablet = 40 mg, By Mouth, Daily, # 60 tablet, 0 Refills, [facility], [address] [place] [phone] [phone]?? Laboratory Results Below is a partial list of the most recent Laboratory test results done prior to this discharge. You may have had other tests and procedures not included in this list. Please discuss all test resultswith your provider. Est Creatinine Clearance - 43.50 mL/min (02/28/2024) Basic Metabolic Panel (02/28/2024) ???Sodium - 136 mmol/L???Potassium - 3.9 mmol/L???Chloride - 101 mmol/L???Bicarbonate Level - 27 mmol/L???Anion Gap - 8???Glucose Level - 133 mg/dL???BUN - 48 mg/dL???Creatinine-Blood - 1.35 mg/dL???Estimated GFR Creatinine - 53 ML/MIN/1.73 M2???Calcium - 7.6 mg/dL CBC (02/28/2024) ???WBC - 8.0 k/mm3???RBC - 2.78 m/mm3???Hgb - 7.9 Gm/dL???Hct - 25.6 %???MCV - 92.1 femtoliters???MCH - 28.4 pg???MCHC - 30.9 g/dL???Platelet Count - 70 k/mm3???RDW-SD - 58.4 femtoliters???MPV - 12.4femtoliters???Nucleated RBC (Automated) - 0.0 #/100 WBC'S???Abs. NRBC - 0.0 k/mm3 CBC w/ Differential (02/24/2024) ???WBC - 4.5 k/mm3???RBC - 2.73 m/mm3???Hgb - 7.8 Gm/dL???Hct - 25.0 %???MCV - 91.6 femtoliters???MCH - 28.6 pg???MCHC - 31.2 g/dL???Platelet Count - 71 k/mm3???RDW-SD - 57.5 femtoliters???MPV - 12.1femtoliters???Nucleated RBC (Automated) - 0.0 #/100 WBC'S???Abs. NRBC - 0.0 k/mm3???Abs. Neut - 3.1 k/mm3???Abs. Lymph - 0.6 k/mm3???Abs. Hodgeman - 0.5 k/mm3???Abs. Eo - 0.2 k/mm3???Abs. Baso - 0.0 k/mm3???Neut % - 69.3 %???Lymph % - 12.8 %???Hodgeman % - 11.7 %???Eos % - 4.9 %???Baso % - 0.9 %???Imm Gran- 0.4 %???Abs. Imm Gran - 0.0 k/mm3 Comprehensive Metabolic Panel (02/24/2024) ???Sodium - 140 mmol/L???Potassium - 3.5 mmol/L???Chloride - 103 mmol/L???Bicarbonate Level - 25 mmol/L???Anion Gap - 12???Glucose Level - 221 mg/dL???BUN - 41 mg/dL???Creatinine-Blood - 1.38 mg/dL???Estimated GFR Creatinine - 52 ML/MIN/1.73 M2???Calcium - 7.9 mg/dL???Protein, Total - 4.9 Gm/dL???Albumin - 2.9 Gm/dL???AG Ratio - 1.5???Alkaline Phosphatase - 167 units/L???AST (SGOT) - 43 units/L???ALT (SGPT) - 38 units/L???Bilirubin, Total - 0.9 mg/dL GLUCOSE POC (02/29/2024) ???Glucose, POC - 141 mg/dL H + H (02/27/2024) ???Hgb - 8.6 Gm/dL???Hct - 26.9 % High??Sensitivity??Troponin T (02/24/2024) ???High Sensitivity Troponin (HSTnT) - 38 ng/L INR (02/25/2024) ???INR - 1.2???Protime (PT) - 12.7 seconds LFT's (02/25/2024) ???Protein, Total - 4.8 Gm/dL???Albumin - 2.7 Gm/dL???Alkaline Phosphatase - 160 units/L???AST (SGOT) - 32 units/L???ALT (SGPT) - 29 units/L???Bilirubin, Total - 0.8 mg/dL???Bilirubin, Direct - 0.3 mg/dL???Bilirubin, Indirect - 0.5 mg/dL Magnesium Level (02/26/2024) ???Magnesium - 2.2 mg/dL ProBNP (02/24/2024) ???Nt-Probnp - 587 pg/mL Troponin T, High Sensitivity (02/24/2024) ???High Sensitivity Troponin (HSTnT) - 35 ng/L Type and Screen (02/24/2024) ???Blood Type - A Positive???Antibody Screen - Negative Allergies (NKA means No Known Allergies) Latex??(Rash) TiZANidine Hydrochloride??(hallucination) lisinopril??(throat swelling) pregabalin??(hallucination) Problems Active Problems??(26) Abdominal distension?? Acute kidney injury?? Anemia?? Bacteremia?? CAD (coronary artery disease), LAD?? CHF (congestive heart failure)?? Chronic kidney disease?? Diabetes mellitus type 2, insulin?? Elevated serum creatinine?? Essential hypertension?? Hyperlipidemia?? Hyperlipidemia?? Hypotension?? Infective endocarditis?? Iron deficiency anemia?? Liver cirrhosis?? Lower extremity edema?? Neuropathy?? Old myocardial infarction, NSTEMI, s/p ZORA?? ANUJA on CPAP?? Pericardial effusion, s/p pericardiocentesis?? Prostate cancer?? Pulmonary HTN?? Status post placement of cardiac pacemaker?? Status post transcatheter aortic valve replacement (TAVR) using bioprosthesis?? Weight gain?? Education Materials Below is the list of Educational Leaflet Providered with your Discharge Instructions. WebMD Ignite Patient Education - Heart Failure Discharge Instructions for Heart Failure?? Valuables and Belongings I fully understand and agree that [facility] accepts no responsibility for all my [...] Review of Valuable and Belonging List: With patient Date for Pt to Sign Valuables/Belongings: 02/24/24 18:31:00 ?? Other Discharge Information ? Pulmonary Rehab Status?? Pulmonary Rehab Discharge Status?? CPAP/BiPAP Mask Type: Nasal CPAP/BiPAP Mask Size: Medium Respiratory Rate: 18 br/min ? Common Emergency Awareness Tips IS IT [...] are strongly encouraged to quit. Please call [facility] Inside[employer]™ Link at [phone] or [phone] ([phone]) or log in to [email or web address] for referrals to smoking cessation programs. ?? 154 Suicide & Crisis Lifeline is available 06/04 if you or someone you know needs to find a reason to keep living. By calling 380 you'll be connected to a skilled, trained counselor at a crisis center in your area. INPATIENT DISCHARGE INSTRUCTIONS SIGNATURE PAGE GILLES WRIGHT Location:[facility] Registration Date and Time:02/24/2024 18:08 EDT Primary Care Physician: Roberto Carlos Arzola, Attending Physician: Alvaro Conner DO, I GILLES WRIGHT, have received the above patient education materials/instructions and have verbalized understanding. If ambulance or transport services are being used I further acknowledge being given a choice of service. ?? If you need to contact me, please call me at this number: . Patient/Water Purifier Operator Name: Patient/Water Purifier Operator Signature: Relationship to Patient: Witness Name/Signature: Date: * Alvaro Conner DO: PERFORM Event Display: Patient Education Leaflets Authored Date: [id number] Heart Failure Discharge Instructions for Heart Failure ?? 153 Discharge Instructions for Heart Failure The heart is a muscle that pumps oxygen-rich blood to all parts of the body. When you have heart failure, the heart is not able to pump as well as it should. Blood and fluid may back up into the lungs (congestive heart failure), and some parts of the body don ???t get enough oxygen-rich blood to work normally. These problems lead to the symptoms of heart failure. Heart failure can occur due to aninjury to the heart or from natural processes. You can control symptoms of heart failure with some lifestyle changes and by following your doctor's advice. Home care Activity Ask your healthcare provider about an exercise program. You can benefit from simple activities suchas walking or gardening. Exercising most days of the week can make you feel better. Don't be discouraged if your progress is slow at first. Rest as needed. Stop activity if you develop symptoms such as chest pain, lightheadedness, or significant shortness of breath. Find activities that you enjoy, such as brisk walking, dancing, swimming, or gardening. These will help you stay active and strengthen your heart. Diet Follow a heart healthy diet. And make sure to limit the salt (sodium) in your diet. Salt causes your body to hold water. This makes your heart work harder as there is more fluid for the heart to pump. Limit your salt by doing the following: ??? Limit canned, dried, packaged, and fast foods. ??? Don't add salt to your food. ??? Season foods with herbs instead of salt. ??? Watch how much liquids you drink. Drinking too much can make heartfailure worse. Talk with your health care provider about how much you should drink each day. ??? Limit the amount of alcohol you drink. It may harm your heart. Women should have no more than 1 drink a day and men should have no more than 2. ??? When you eat out, request that your meals have no added salt. Tobacco If you smoke, it's very important to quit. Smoking increases your chances of having a heart attack by harming the blood vessels that provide oxygen to your heart. This makes heart failure worse. Quitting smoking is the number one thing you can do to improve your health. Enroll in a stop-smoking program to improve your chances of success. Talk with your healthcare provider??about medicines or nicotine replacement therapy to help you quit smoking. Ask your healthcare provider about smoking cessation support groups. Medicine Take your medicines exactly as prescribed. Learn the names and purpose of each of your medicines. Keep an accurate medicine list and current dosages with you at all times. Don't skip doses. If you miss a dose of your medicine, take it as soon as you remember. If you miss a dose and??it's almost time for your next dose, just wait and take your next dose at the normal time. Don't take a double dose. If you are unsure, call your doctor's office. Make sure not to mix up your medicines or forget what you've taken the same day. Weight monitoring Weigh yourself every day. A sudden weight gain can mean your heart failure is getting worse. Weigh yourself at the same time of day and in the same kind of clothes. Ideally, weigh yourself first thing in the morning after you empty your bladder, but before you eat breakfast. Your healthcare provider will show you how to track your weight. He or she will also discuss with you when you should call if you have a sudden, unexpected increase in your weight. In general, your healthcare provider may ask you to report if your weight goes up by more than 2 pounds in 1 day,?? 5 pounds in 1 week, or whatever weight gain you were told by your doctor. This is asign that you are retaining more fluid than you should be. Clues to weight gain include checking your ankles for swelling, or noticing you are short of breath when you lie down. Follow-up care Make a follow-up appointment as directed. Depending on the type and severity of heart failure you have, you may need follow-up as early as 7 days from hospital discharge. Keep appointments for checkups and lab tests that are needed to check your medicines and condition. Recognize that your health and even survival depend on your following medical recommendations. Symptoms Heart failure can cause a variety of symptoms, including: ??? Shortness of breath ??? Trouble breathing at night, especially when you lie down ??? Swelling in the legs and feet or in the belly (abdomen) ??? Becoming easily fatigued ??? Irregular or rapid heartbeat ??? Weakness or lightheadedness ??? Swelling of the neck veins It is important to know what to do if symptoms get worse or if you develop signs of worsening heartfailure. ?? When to see your healthcare provider Call your doctor right away if you have any of these signs of worsening heart failure: ??? Sudden weight gain (more than 2 pounds in 1 day or 5??pounds in 1 week, or whatever weight gainyou were told to report by your doctor) ??? Trouble breathing not related to being active ??? New or increased swelling of your legs or ankles ??? Swelling or pain in your abdomen ??? Breathing trouble at night (waking up short of breath, needing more pillows to breathe) ??? Frequent coughing that doesn't go away ??? Feeling much more tired than usual Call 911 Call 911 right away if you have: ??? Severe shortness of breath, such that you can't catch your breath even while??resting ??? Severe chest pain that does not resolve with rest or nitroglycerin ??? Bernard, foamy mucus with cough and shortness of breath ??? A continuous rapid or irregular heartbeat ??? Passing out or fainting ??? Stroke symptoms such as sudden numbness or weakness on one side of your face, arm, or leg or sudden confusion, trouble speaking or vision changes ? Please refer to the Heart Failure Handbook for more information. ? Patient Care team information Care Team Personnel Name: Steff Puentes RN Position: S RN Member Role: Primary Care Nurse Name: Kalyani Miller LPN Position: S RN Member Role: Primary Care Nurse Name: Nadiya Coleman RN Position: S RN Member Role: Primary Care Nurse Name: Tripp Machado RN Position: S RN Member Role: Primary Care Nurse Name: Sobia Hilliard RN Position: S RN Supv Member Role: Primary Care Nurse Name: Lupe Díaz RN Position: [facility] RN Member Role: Primary Care Nurse Name: Betsy Solano RN Position: [facility] RN Member Role: Primary Care Nurse Name: Prema Ponce RN Position: [facility] RN Member Role: Primary Care Nurse Name: Andrew Burks RN Position: [facility] RN Supv Member Role: Primary Care Nurse Name: Lorraine Araujo RN Position: [facility] AMB Nurse Member Role: Primary Care Nurse Name: Adryan Rm RN Position: [facility] RN Member Role: Primary Care Nurse Name: Roberto Carlos Arzola Position: Reference Physician Member Role: PCP Address: Address: [address] [place] [address] [address] [place] [address]- Name: Fely aGspar RN Position: [facility] RN Member Role: Primary Care Nurse Name: Tonya Up RN Position: [facility] RN Member Role: Primary Care Nurse Name: Matheus Cleveland RN Position: [facility] RN Member Role: Primary Care Nurse Name: Karolina Barcenas RN Position: [facility] RN Member Role: Primary Care Nurse Name: Mercedes Maki RN Position: [facility] RN Member Role: Primary Care Nurse Name: Edna Horner RN Position: [facility] RN Member Role: Primary Care Nurse Name: Jarvis Bautista RN Position: [facility] RN Member Role: Primary Care Nurse Name: Aguila Acevedo LPN Position: [facility] RN Member Role: Primary Care Nurse Name: Les Sahu MD Position: [facility] Renal MD Member Role: Lifetime Consulting Physician Address: Address: [address] [place] [address] [address] [facility] [place] [address]- Name: Gabby Ma RN Position: [facility] MARQUISE Office Staff Member Role: Primary Care Nurse Name: Nadia Lainez RN Position: [facility] RN Member Role: Primary Care Nurse Name: Yohannes Watson RN Position: [facility] RN Member Role: Primary Care Nurse Name: Omer Moreno MD Position: [facility] Renal MD Member Role: Lifetime Consulting Physician Address: Address: [address] [place] [address] [facility] [place] [address]- Name: Staci Salgado LPN Position: [facility] RN Member Role: Primary Care Nurse Name: Zo Vivar RN Position: [facility] RN Member Role: Primary Care Nurse Name: Anh Batista RN Position: S RN Member Role: Primary Care Nurse Care Team Related Persons Name: KYLE DES Address: home [address] [place] [address] Name: GISELA WRIGHT Address: [place] [address] Name: SURI FLOYD Address: home [address] [place] [address]
--- OUTSIDE RECORDS SUMMARY | 2024-04-15 20:05 | XMS_ITS | Continuity of Care Document ---
Author Organization [facility] ter Address [address] [place] [id number]- Care Team Providers Care Bank Vault Custodian Name Role Phone Vita ROONEY, Maninder Sanon Primary Care Physic naomi Encounter [facility] Date(s): 02/04/23 - 03/25/[address] [address] Attending Physician: Mirella Rojas MD [...] 02/07/23 12:32:00 EDT, Route to Pharmacy Electronically, [facility] #[id number], Partial nikhil... Start Date: 02/07/23 Status: Ordered aspirin 81 mg oral delayed release tablet 81 mg, 1, tablet, By Mouth, Daily, Do not start aspirin until 06/16/2022, # 90 tablet, Refills 0, Tot. Refills 0, Maintenance, 02/07/23 12:28:00 EDT, Route to Pharmacy Electronically, [facility][id number], Partial fill upon patient request if t... [...] mmHg and/or heart rate is below 55 [id number], # 180 tablet, Refills 0, Tot. Refills 0, Maintenance, 02/07/23 12:29:00 EDT, Route to Pharmacy Electronically... Start Date: 02/07/23 Status: Ordered Farxiga 10 mg oral tablet 1 tablet = 10 mg, By Mouth, Daily, # 90 tablet, 0 Refills, Maintenance, 02/07/23 12:33:00 EDT, Tablet, [facility] #[id number], Partial fill upon patient request if the prescription is for a schedule II opioid drug., 175, cm, 02/07/23 12:05:00 EDT... Start Date: 02/07/23 Status: Ordered ferrous sulfate 325 mg oral enteric coated tablet 325 mg, 1, tablet, By Mouth, Daily, # 90 tablet, Refills 0, Tot. Refills 0, Maintenance, 02/07/23 12:36:00 EDT, Route to Pharmacy Electronically, [facility] #[id number], Partial fill upon patient request if the prescription is for a schedule II o... Start Date: 02/07/23 Status: Ordered finasteride 5 mg oral tablet 1 tablet = 5 mg, By Mouth, Daily, # 90 tablet, 0 Refills, Maintenance, 02/07/23 12:28:00 EDT, Tablet, [facility][id number], Partial fill upon patient request if the [...] 02/07/23 12:31:00 EDT, Route to Pharmacy Electronically, [facility] #[id number], Partial fill... Start Date: 02/07/23 Status: Ordered lidocaine 5% topical film 1 patch, Topically, Daily, Apply to back of the neck tender point, 12 hours on then 12 hours off., # 30 patch, 0 Refills, Maintenance, 02/07/23 12:30:00 EDT, Patch, [facility] #[id number], Partial fill upon patient request if the prescription is... Start Date: 02/07/23 Status: Ordered Lipitor 80 mg oral tablet 1 tablet = 80 mg, By Mouth, Daily, # 90 tablet, 0 Refills, Maintenance, 02/07/23 12:28:00 EDT, Tablet, [facility] #[id number], 175, cm, 02/07/23 12:05:00 EDT, Height, 94, kg, 01/23/23 9:15:00 EDT, Dry Weight Start Date: 02/07/23 Status: Ordered midodrine 10 mg oral tablet 1 tablet = 10 mg, By Mouth, 3 times a day, To help maintain systolic blood pressure above 110-120 mmHg, # 90 tablet, 2 Refills, Maintenance, 02/07/23 12:33:00 EDT, Tablet, [facility] #[id number], Partial fill upon patient request if the prescript... Start Date: 02/07/23 Status: Ordered Narcan 4 mg/0.1 mL nasal spray = 4 mg, Nares, Both, Once, PRN Other, To reverse opioid overdose, administer to each nostril, may repeat every 2 to 3 minutes until patient responds, call 911 in the meantime., # 2 each, 0 Refills, Soft Stop, 02/07/23 12:41:00 EDT, [facility]... Start Date: 02/07/23 Status: Ordered NovoLOG [...] 02/07/23 12:29:00 EDT, Route to Pharmacy Electronically, [facility][id number],Partial fill upon patient request if the prescripti... [...] 0 Refills, Maintenance, 02/07/23 12:33:00 EDT, Tablet, [facility] #[id number], Partial fill upon patient request if the [...] February 2013. Urologist is Dr. Zafar Roa [facility] ( [phone]). Social History Social History Type Response Smoking [...] Care Nurse Name: Lorraine Araujo RN Position: [facility] AMB Nurse Member Role: Primary Care Nurse Name: Adryan Rm RN Position: [facility] RN Member Role: Primary Care Nurse Name: Peg Trinidad RN Position: [facility] RN Member Role: Primary Care Nurse Name: Fely Gaspar Position: [facility] RN Member Role: Primary Care Nurse Name: Meli Luz LPN Position: [facility] RN Member Role: Primary Care Nurse Name: Matheus Cleveland RN Position: [facility] RN Member Role: Primary Care Nurse Name: Mercedes Maki Position: [facility] RN Member Role: Primary Care Nurse Name: Les Sahu MD Position: [facility] Renal MD Member Role: Lifetime Consulting Physician Address: Address: [address] [facility] [address] [facility] [place] [address]- Name: Gabby Ma RN Position: [facility] SN RN Member Role: Primary Care Nurse Name: Huyen Griffin Position: [facility] RN Member Role: Primary Care Nurse Name: Zo Vivar RN Position: [facility] RN Member Role: Primary Care Nurse Name: Vita ROONEY, Maninder Sanon Position: Reference Physician Member Role: PCP Address: Address: [address] [place] [address]- Care Team Related Persons Name: DES WRIGHT Address: [address] [place] [address] Name: GISELA WRIGHT Address: [place] [address]
--- OUTSIDE RECORDS SUMMARY | 2024-04-15 20:05 | XMS_ITS | Continuity of Care Document ---
Author Organization [facility] ter Address [address] [place] [address]- Care Team Providers Care Retail Asset Protection Specialist Name Role Phone Vita ROONEY, Maninder Sanon Primary Care Physic naomi [place] [facility] [place] 02/04/23 - 04/02/[address] [address] Attending Physician: Mirella Rojas [...] 02/07/23 12:32:00 EDT, Route to Pharmacy Electronically, [email or web address] #[id number], Partial nikhil... Start Date: 02/07/23 Status: Ordered aspirin 81 mg oral delayed release tablet 81 mg, 1, tablet, By Mouth, Daily, Do not start aspirin until 06/16/2022, # 90 tablet, Refills 0, Tot. Refills 0, Maintenance, 02/07/23 12:28:00 EDT, Route to Pharmacy Electronically, [facility] #[id number], Partial fill upon patient request if t... [...] mmHg and/or heart rate is below 55 [id number], # 180 tablet, Refills 0, Tot. Refills 0, Maintenance, 02/07/23 12:29:00 EDT, Route to Pharmacy Electronically... Start Date: 02/07/23 Status: Ordered Farxiga 10 mg oral tablet 1 tablet = 10 mg, By Mouth, Daily, # 90 tablet, 0 Refills, Maintenance, 02/07/23 12:33:00 EDT, Tablet, [email or web address] #[id number], Partial fill upon patient request if the prescription is for a schedule II opioid drug., 175, cm, 02/07/23 12:05:00 EDT... Start Date: 02/07/23 Status: Ordered ferrous sulfate 325 mg oral enteric coated tablet 325 mg, 1, tablet, By Mouth, Daily, # 90 tablet, Refills 0, Tot. Refills 0, Maintenance, 02/07/23 12:36:00 EDT, Route to Pharmacy Electronically, [facility] #[id number], Partial fill upon patient request if the prescription is for a schedule II o... Start Date: 02/07/23 Status: Ordered finasteride 5 mg oral tablet 1 tablet = 5 mg, By Mouth, Daily, # 90 tablet, 0 Refills, Maintenance, 02/07/23 12:28:00 EDT, Tablet, [facility] #[id number], Partial fill upon patient request if the [...] 02/07/23 12:31:00 EDT, Route to Pharmacy Electronically, [facility] #[id number], Partial fill... Start Date: 02/07/23 Status: Ordered lidocaine 5% topical film 1 patch, Topically, Daily, Apply to back of the neck tender point, 12 hours on then 12 hours off., # 30 patch, 0 Refills, Maintenance, 02/07/23 12:30:00 EDT, Patch, [facility] #[id number], Partial fill upon patient request if the prescription is... Start Date: 02/07/23 Status: Ordered Lipitor 80 mg oral tablet 1 tablet = 80 mg, By Mouth, Daily, # 90 tablet, 0 Refills, Maintenance, 02/07/23 12:28:00 EDT, Tablet, [email or web address] #[id number], 175, cm, 02/07/23 12:05:00 EDT, Height, 94, kg, 01/23/23 9:15:00 EDT, Dry Weight Start Date: 02/07/23 Status: Ordered midodrine 10 mg oral tablet 1 tablet = 10 mg, By Mouth, 3 times a day, To help maintain systolic blood pressure above 110-120 mmHg, # 90 tablet, 2 Refills, Maintenance, 02/07/23 12:33:00 EDT, Tablet, [email or web address] #[id number], Partial fill upon patient request if the prescript... Start Date: 02/07/23 Status: Ordered Narcan 4 mg/0.1 mL nasal spray = 4 mg, Nares, Both, Once, PRN Other, To reverse opioid overdose, administer to each nostril, may repeat every 2 to 3 minutes until patient responds, call 911 in the meantime., # 2 each, 0 Refills, Soft Stop, 02/07/23 12:41:00 EDT, [facility]... Start Date: 02/07/23 Status: Ordered NovoLOG [...] 02/07/23 12:29:00 EDT, Route to Pharmacy Electronically, [email or web address] #[id number],Partial fill upon patient request if the prescripti... [...] 0 Refills, Maintenance, 02/07/23 12:33:00 EDT, Tablet, [email or web address] #[id number], Partial fill upon patient request if the [...] February 2013. Urologist is Dr. Zafar [facility] ). Social History Social History Type [...] Care Nurse Name: Lorraine Araujo RN Position: [facility] AMB Nurse Member Role: Primary Care Nurse Name: Adryan Rm RN Position: [facility] RN Member Role: Primary Care Nurse Name: Peg Trinidad RN Position: [facility] RN Member Role: Primary Care Nurse Name: Fely Gaspar Position: [facility] RN Member Role: Primary Care Nurse Name: Meli Luz LPN Position: [facility] RN Member Role: Primary Care Nurse Name: Matheus Cleveland RN Position: [facility] RN Member Role: Primary Care Nurse Name: Mercedes Maki Position: [facility] RN Member Role: Primary Care Nurse Name: Les Sahu MD Position: [facility] Renal MD Member Role: Lifetime Consulting Physician Address: Address: [address] [facility] [address] [facility] [place], [place] [address]- Name: Gabby Ma RN Position: [facility] SN RN Member Role: Primary Care Nurse Name: Huyen Griffin Position: [facility] RN Member Role: Primary Care Nurse Name: Zo Vivar RN Position: [facility] RN Member Role: Primary Care Nurse Name: Vita ROONEY, Maninder Sanon Position: Reference Physician Member Role: PCP Address: Address: [address] [place] [address]- Care Team Related Persons Name: DES WRIGHT Address: home [address] [place] [address] Name: GISELA WRIGHT Address: [place] [address]
--- OUTSIDE RECORDS SUMMARY | 2024-04-15 20:05 | XMS_ITS | Continuity of Care Document ---
Author Organization [facility] ter Address [address] [place] [address]- Care Team Providers Care Road Sign Installer Name Role Phone Vita ROONEY, Maninder Sanon Primary Care Physic naomi Encounter [facility] [place] Date(s): 02/04/23 - 03/16/[address] [id number] Attending Physician: Mirella Rojas MD Admitting [...] 02/07/23 12:32:00 EDT, Route to Pharmacy Electronically, [facility] #[id number], Partial nikhil... Start Date: 02/07/23 Status: Ordered aspirin 81 mg oral delayed release tablet 81 mg, 1, tablet, By Mouth, Daily, Do not start aspirin until 06/16/2022, # 90 tablet, Refills 0, Tot. Refills 0, Maintenance, 02/07/23 12:28:00 EDT, Route to Pharmacy Electronically, [facility] #[id number], Partial fill upon patient request if t... [...] mmHg and/or heart rate is below 55 [id number], # 180 tablet, Refills 0, Tot. Refills 0, Maintenance, 02/07/23 12:29:00 EDT, Route to Pharmacy Electronically... Start Date: 02/07/23 Status: Ordered Farxiga 10 mg oral tablet 1 tablet = 10 mg, By Mouth, Daily, # 90 tablet, 0 Refills, Maintenance, 02/07/23 12:33:00 EDT, Tablet, [facility] #[id number], Partial fill upon patient request if the prescription is for a schedule II opioid drug., 175, cm, 02/07/23 12:05:00 EDT... Start Date: 02/07/23 Status: Ordered ferrous sulfate 325 mg oral enteric coated tablet 325 mg, 1, tablet, By Mouth, Daily, # 90 tablet, Refills 0, Tot. Refills 0, Maintenance, 02/07/23 12:36:00 EDT, Route to Pharmacy Electronically, [facility] #[id number], Partial fill upon patient request if the prescription is for a schedule II o... Start Date: 02/07/23 Status: Ordered finasteride 5 mg oral tablet 1 tablet = 5 mg, By Mouth, Daily, # 90 tablet, 0 Refills, Maintenance, 02/07/23 12:28:00 EDT, Tablet, [facility] #[id number], Partial fill upon patient request if the [...] 02/07/23 12:31:00 EDT, Route to Pharmacy Electronically, [facility] #[id number], Partial fill... Start Date: 02/07/23 Status: Ordered lidocaine 5% topical film 1 patch, Topically, Daily, Apply to back of the neck tender point, 12 hours on then 12 hours off., # 30 patch, 0 Refills, Maintenance, 02/07/23 12:30:00 EDT, Patch, [facility] #[id number], Partial fill upon patient request if the prescription is... Start Date: 02/07/23 Status: Ordered Lipitor 80 mg oral tablet 1 tablet = 80 mg, By Mouth, Daily, # 90 tablet, 0 Refills, Maintenance, 02/07/23 12:28:00 EDT, Tablet, [facility] #[id number], 175, cm, 02/07/23 12:05:00 EDT, Height, 94, kg, 01/23/23 9:15:00 EDT, Dry Weight Start Date: 02/07/23 Status: Ordered midodrine 10 mg oral tablet 1 tablet = 10 mg, By Mouth, 3 times a day, To help maintain systolic blood pressure above 110-120 mmHg, # 90 tablet, 2 Refills, Maintenance, 02/07/23 12:33:00 EDT, Tablet, [facility] #[id number], Partial fill upon patient request if the prescript... Start Date: 02/07/23 Status: Ordered Narcan 4 mg/0.1 mL nasal spray = 4 mg, Nares, Both, Once, PRN Other, To reverse opioid overdose, administer to each nostril, may repeat every 2 to 3 minutes until patient responds, call 911 in the meantime., # 2 each, 0 Refills, Soft Stop, 02/07/23 12:41:00 EDT, [facility]... Start Date: 02/07/23 Status: Ordered NovoLOG [...] 02/07/23 12:29:00 EDT, Route to Pharmacy Electronically, [facility] #[id number],Partial fill upon patient request if the prescripti... [...] 0 Refills, Maintenance, 02/07/23 12:33:00 EDT, Tablet, [facility] #[id number], Partial fill upon patient request if the [...] February 2013. Urologist is Dr. Zafar [facility] ). Social History Social History Type [...] Care Nurse Name: Lorraine Araujo RN Position: [facility] AMB Nurse Member Role: Primary Care Nurse Name: Adryan Rm RN Position: [facility] RN Member Role: Primary Care Nurse Name: Peg Trinidad RN Position: [facility] RN Member Role: Primary Care Nurse Name: Fely Gaspar Position: [facility] RN Member Role: Primary Care Nurse Name: Meli Luz LPN Position: [facility] RN Member Role: Primary Care Nurse Name: Matheus Cleveland RN Position: [facility] RN Member Role: Primary Care Nurse Name: Mercedes Maki Position: [facility] RN Member Role: Primary Care Nurse Name: Les Sahu MD Position: [facility] Renal MD Member Role: Lifetime Consulting Physician Address: Address: [address] [facility] [address] [facility] [place], [place] [address]- Name: Gabby Ma RN Position: [facility] SN RN Member Role: Primary Care Nurse Name: Huyen Griffin Position: [facility] RN Member Role: Primary Care Nurse Name: Zo Vivar RN Position: [facility] RN Member Role: Primary Care Nurse Name: Vita ROONEY, Maninder Sanon Position: Reference Physician Member Role: PCP Address: Address: [address] [place] [address]- Care Team Related Persons Name: DES WRIGHT Address: home [address] [place] [address] Name: GISELA WRIGHT Address: home [place] [address]
--- OUTSIDE RECORDS SUMMARY | 2024-04-15 20:05 | XMS_ITS | Continuity of Care Document ---
Author Organization [facility] Address [address] [place] [address]- Care Team Providers Care Job Coaching Name Role Phone Vita ROONEY, Maninder Sanon Primary Care Physic naomi [place] [facility] [place](s): 08/11/23 - 10/15/23 [facility] [address] [place] [address]- Attending Physician: Cole Saleem MD Admitting Physician: Cole Saleem MD Allergies, Adverse Reactions, Alerts Substance Reaction [...] 05/17/24 13:41:00 EDT, 08/21/23 13:41:00 EST, Capsule, [facility] #[id number], Partial fill upon patient request if the prescript... Start Date: 08/21/23 Stop Date: 05/17/24 Status: Ordered amoxicillin 500 mg oral capsule 2 capsule = 1,000 mg, By Mouth, 3 times a day, # 240 capsule, 0 Refills, Maintenance, 07/28/23 10:17:00 EST, [facility] #[id number], Partial fill upon patient request if the prescription is for a schedule II opioid drug., 175.26, cm, 07/24/23 9:5... Start Date: 07/28/23 Stop Date: 09/06/23 Status: Ordered aspirin 81 mg oral delayed release tablet 81 mg, 1, tablet, By Mouth, Daily, Do not start aspirin until 06/16/2022, # 90 tablet, Refills 0, Tot. Refills 0, Maintenance, 02/07/23 12:28:00 EDT, Route to Pharmacy Electronically, [facility][id number], Partial fill upon patient request if t... [...] 08/17/23 7:00:00 EST, Route to Pharmacy Electronically, [facility] #[id number], Partial fill upon patient request if the [...] mmHg and/or heart rate is below 55 [id number], # 180 tablet, Refills 0, Tot. Refills 0, Maintenance, 02/07/23 12:29:00 EDT, Route to Pharmacy Electronically... Start Date: 02/07/23 Status: Ordered diclofenac 1% topical gel = 4 Gm, Topically, 4 times a day, PRN Pain , Moderate, # 100 Gm, 0 Refills, Maintenance, 08/15/23 11:37:00 EST, Gel, [facility] #[id number], Partial fill upon patient request if the prescriptionis for a schedule II opioid drug., 175, cm, ... Start Date: 08/15/23 Status: Ordered Farxiga 10 mg oral tablet 1 tablet = 10 mg, By Mouth, Daily, # 90 tablet, 0 Refills, Maintenance, 02/07/23 12:33:00 EDT, [id number], Partial fill upon patient request if the prescription is for a schedule II opioid drug., 175, cm, 02/07/23 12:05:00 EDT... Start Date: 02/07/23 Status: Ordered ferrous sulfate 325 mg oral enteric coated tablet 325 mg, 1, tablet, By Mouth, Daily, # 90 tablet, Refills 0, Tot. Refills 0, Maintenance, 02/07/23 12:36:00 EDT, Route to Pharmacy Electronically, [facility] #[id number], Partial fill upon patient request if the prescription is for a schedule II o... Start Date: 02/07/23 Status: Ordered finasteride 5 mg oral tablet 1 tablet = 5 mg, By Mouth, Daily, # 90 tablet, 0 Refills, Maintenance, 02/07/23 12:28:00 EDT, [facility][id number], Partial fill upon patient request if the [...] 07/22/23 9:56:00 EST, Route to Pharmacy Electronically, [facility][id number], Partial fill upon patient request if the prescription is for a sche... Start Date: 07/22/23 Status: Ordered lactulose 10 gm/15 ml oral syrup See Instructions, PRN Other, Take 15 mL as needed for constipation, please maintain daily bowel movement, hold for excessive loose stool or diarrhea (more than 3 times a day)., # 480 mL, 0 Refills, Maintenance, 02/07/23 12:36:00 EDT, Syrup, [facility]... Start Date: 02/07/23 Status: Ordered Lipitor 80 mg oral tablet 1 tablet = 80 mg, By Mouth, Daily, # 90 tablet, 0 Refills, Maintenance, 02/07/23 12:28:00 EDT, Tablet, [facility] #[id number], 175, cm, 02/07/23 12:05:00 EDT, Height, 94, kg, 01/23/23 9:15:00 EDT, Dry Weight Start Date: 02/07/23 Status: Ordered midodrine 10 mg oral tablet 1 tablet = 10 mg, By Mouth, 3 times a day, To help maintain systolic blood pressure above 110-120 mmHg, # 90 tablet, 2 Refills, Maintenance, 02/07/23 12:33:00 EDT, Tablet, [facility] #[id number], Partial fill upon patient request if the [...] 02/07/23 12:29:00 EDT, Route to Pharmacy Electronically, [facility] #[id number],Partial fill upon patient request if the prescripti... [...] 0 Refills, Maintenance, 02/07/23 12:33:00 EDT, Tablet, [facility] #[id number], Partial fill upon patient request if the [...] February 2013. Urologist is Dr. Zafar Roa [facility] ). Social History Social History Type Response Smoking Status Never (less than 100 in lifetime) entered on: 06/02/22 Sex Patient Care team information Care Team Personnel Name: Steff Puentes RN Position: [facility] RN Member Role: Primary Care Nurse Name: Kalyani Miller LPN Position: [facility] RN Member Role: Primary Care Nurse Name: Nadiya Coleman RN Position: [facility] RN Member Role: Primary Care Nurse Name: Tripp Machado RN Position: [facility] RN Member Role: Primary Care Nurse Name: Sobia Hilliard RN Position: [facility] RN Supv Member Role: Primary Care Nurse Name: Lupe Díaz RN Position: [facility] RN Member Role: Primary Care Nurse Name: Betsy Solano RN Position: [facility] RN Member Role: Primary Care Nurse Name: Lorraine Araujo RN Position: [facility] AMB Nurse Member Role: Primary Care Nurse Name: Adryan Rm RN Position: [facility] RN Member Role: Primary Care Nurse Name: Fely Gaspar Position: [facility] RN Member Role: Primary Care Nurse Name: Tonya Up RN Position: [facility] RN Member Role: Primary Care Nurse Name: Meli Luz LPN Position: [facility] RN Member Role: Primary Care Nurse Name: Matheus Cleveland RN Position: [facility] RN Member Role: Primary Care Nurse Name: Karolina Barcenas RN Position: [facility] RN Member Role: Primary Care Nurse Name: Mercedes Maki Position: [facility] RN Member Role: Primary Care Nurse Name: Edna Horner RN Position: [facility] RN Member Role: Primary Care Nurse Name: Aguila Acevedo LPN Position: [facility] RN Member Role: Primary Care Nurse Name: Les Sahu MD Position: [facility] Renal MD Member Role: Lifetime Consulting Physician Address: Address: [address] [place] [address] [address] [facility] [place] [address]- Name: Gabby Ma RN Position: [facility] SN RN Member Role: Primary Care Nurse Name: Nadia Lainez RN Position: S RN Member Role: Primary Care Nurse Name: Yohannes Watson RN Position: S RN Member Role: Primary Care Nurse Name: Omer Moreno MD Position: [facility] Renal MD Member Role: Lifetime Consulting Physician Address: Address: [address] [place] [address] [facility] [place] [address]- Name: Staci Salgado LPN Position: [facility] RN Member Role: Primary Care Nurse Name: Zo Vivar RN Position: [facility] RN Member Role: Primary Care Nurse Name: Anh Batista RN Position: [facility] RN Member Role: Primary Care Nurse Name: Maninder Gorman MD Position: Reference Physician Member Role: PCP Address: Address: [address] [place] [address]- Care Team Related Persons Name: DES WRIGHT Address: home [address] [place] [address] Name: GISELA WRIGHT Address: [place] [address] Name: SURI FLOYD Address: home [address] [place] [address]
--- OUTSIDE RECORDS SUMMARY | 2024-04-15 20:05 | XMS_ITS | Continuity of Care Document ---
Author Organization [facility] ter Address [address] [place] [address]- Care Team Providers Care Amplifier Mechanic Name Role Phone Vita ROONEY, Maninder Sanon Primary Care Physic namoi [place] [facility] [place](s): 02/04/23 - 03/22/[address] [id number] Attending Physician: Mirella Rojas [...] 02/07/23 12:32:00 EDT, Route to Pharmacy Electronically, [facility] #[id number], Partial nikhil... Start Date: 02/07/23 Status: Ordered aspirin 81 mg oral delayed release tablet 81 mg, 1, tablet, By Mouth, Daily, Do not start aspirin until 06/16/2022, # 90 tablet, Refills 0, Tot. Refills 0, Maintenance, 02/07/23 12:28:00 EDT, Route to Pharmacy Electronically, [facility] #[id number], Partial fill upon patient request if t... [...] mmHg and/or heart rate is below 55 [id number], # 180 tablet, Refills 0, Tot. Refills 0, Maintenance, 02/07/23 12:29:00 EDT, Route to Pharmacy Electronically... Start Date: 02/07/23 Status: Ordered Farxiga 10 mg oral tablet 1 tablet = 10 mg, By Mouth, Daily, # 90 tablet, 0 Refills, Maintenance, 02/07/23 12:33:00 EDT, Tablet, [facility] #[id number], Partial fill upon patient request if the prescription is for a schedule II opioid drug., 175, cm, 02/07/23 12:05:00 EDT... Start Date: 02/07/23 Status: Ordered ferrous sulfate 325 mg oral enteric coated tablet 325 mg, 1, tablet, By Mouth, Daily, # 90 tablet, Refills 0, Tot. Refills 0, Maintenance, 02/07/23 12:36:00 EDT, Route to Pharmacy Electronically, [facility] #[id number], Partial fill upon patient request if the prescription is for a schedule II o... Start Date: 02/07/23 Status: Ordered finasteride 5 mg oral tablet 1 tablet = 5 mg, By Mouth, Daily, # 90 tablet, 0 Refills, Maintenance, 02/07/23 12:28:00 EDT, Tablet, [facility] #[id number], Partial fill upon patient request if the [...] 02/07/23 12:31:00 EDT, Route to Pharmacy Electronically, [facility] #[id number], Partial fill... Start Date: 02/07/23 Status: Ordered lidocaine 5% topical film 1 patch, Topically, Daily, Apply to back of the neck tender point, 12 hours on then 12 hours off., # 30 patch, 0 Refills, Maintenance, 02/07/23 12:30:00 EDT, Patch, [facility] #[id number], Partial fill upon patient request if the prescription is... Start Date: 02/07/23 Status: Ordered Lipitor 80 mg oral tablet 1 tablet = 80 mg, By Mouth, Daily, # 90 tablet, 0 Refills, Maintenance, 02/07/23 12:28:00 EDT, Tablet, [facility] #[id number], 175, cm, 02/07/23 12:05:00 EDT, Height, 94, kg, 01/23/23 9:15:00 EDT, Dry Weight Start Date: 02/07/23 Status: Ordered midodrine 10 mg oral tablet 1 tablet = 10 mg, By Mouth, 3 times a day, To help maintain systolic blood pressure above 110-120 mmHg, # 90 tablet, 2 Refills, Maintenance, 02/07/23 12:33:00 EDT, Tablet, [facility] #[id number], Partial fill upon patient request if the prescript... Start Date: 02/07/23 Status: Ordered Narcan 4 mg/0.1 mL nasal spray = 4 mg, Nares, Both, Once, PRN Other, To reverse opioid overdose, administer to each nostril, may repeat every 2 to 3 minutes until patient responds, call 911 in the meantime., # 2 each, 0 Refills, Soft Stop, 02/07/23 12:41:00 EDT, [facility]... Start Date: 02/07/23 Status: Ordered NovoLOG [...] 02/07/23 12:29:00 EDT, Route to Pharmacy Electronically, [facility] #[id number],Partial fill upon patient request if the prescripti... [...] 0 Refills, Maintenance, 02/07/23 12:33:00 EDT, Tablet, [facility] #[id number], Partial fill upon patient request if the [...] February 2013. Urologist is Dr. Zafar Roa [facility] ). Social History Social History Type [...] Care Nurse Name: Lorraine Araujo RN Position: [facility] AMB Nurse Member Role: Primary Care Nurse Name: Adryan Rm RN Position: [facility] RN Member Role: Primary Care Nurse Name: Peg Trinidad RN Position: [facility] RN Member Role: Primary Care Nurse Name: Fely Gaspar Position: [facility] RN Member Role: Primary Care Nurse Name: Meli Luz LPN Position: [facility] RN Member Role: Primary Care Nurse Name: Matheus Cleveland RN Position: [facility] RN Member Role: Primary Care Nurse Name: Mercedes Maki Position: [facility] RN Member Role: Primary Care Nurse Name: Les Sahu MD Position: [facility] Renal MD Member Role: Lifetime Consulting Physician Address: Address: [address] [facility] [address] [facility] [place] [place] [address]- Name: Gabby Ma RN Position: [facility] SN RN Member Role: Primary Care Nurse Name: Huyen Griffin Position: [facility] RN Member Role: Primary Care Nurse Name: Zo Vivar RN Position: [facility] RN Member Role: Primary Care Nurse Name: Vita ROONEY, Maninder Sanon Position: Reference Physician Member Role: PCP Address: Address: [address] [place] [address]- Care Team Related Persons Name: DES WRIGHT Address: home [address] [place] [address] Name: GISELA WRIGHT Address: home [address] [facility] [place] [address]
--- OUTSIDE RECORDS SUMMARY | 2024-04-15 20:05 | XMS_ITS | Continuity of Care Document ---
Author Organization [facility] ter Address [address] [place] [id number]- Care Team Providers Care Whale Trainer Name Role Phone Roberto Carlos Arzola Primary Care Physician [phone] Encounter [facility] Date(s): 08/12/23 - 08/15/[address] [address] Encounter Diagnosis Fluid overload, unspecified(Final) - 08/12/23 Discharge Disposition: A-D/C Home Attending Physician: Melissa Wilson MD Admitting Physician: Jesse Flores MD Referring Physician: Not on Staff, Referring [...] 240 capsule, 0 Refills, Maintenance, 07/28/23 10:17:00 [id number] Partial fill upon patient request if the prescription is for a schedule II opioid drug., 175.26, cm, 07/24/23 9:5... Start Date: 07/28/23 Stop Date: 09/06/23 Status: Ordered aspirin 81 mg oral delayed release tablet 81 mg, 1, tablet, By Mouth, Daily, Do not start aspirin until 06/16/2022, # 90 tablet, Refills 0, Tot. Refills 0, Maintenance, 02/07/23 12:28:00 EDT, Route to Pharmacy Electronically, [facility] #[id number], Partial fill upon patient request if t... [...] 08/17/23 7:00:00 EST, Route to Pharmacy Electronically, [facility] #[id number], Partial fill upon patient request if the prescription is for a schedule II opio... Start Date: 08/17/23 Status: Ordered carvedilol 6.25 mg oral tablet 6.25 mg, Tablet, By Mouth, Hold for: SBP less than 100 or HR less than 60, 08/15/23 9:00:00 EST Start Date: 08/15/23 Stop Date: 08/15/23 Status: Completed ceftriaxone 2 gm injectable powder for injection [...] mmHg and/or heart rate is below 55 [id number], # 180 tablet, Refills 0, Tot. Refills 0, Maintenance, 02/07/23 12:29:00 EDT, Route to Pharmacy Electronically... Start Date: 02/07/23 Status: Ordered diclofenac 1% topical gel = 4 Gm, Topically, 4 times a day, PRN Pain , Moderate, # 100 Gm, 0 Refills, Maintenance, 08/15/23 11:37:00 EST, Gel, [facility] #[id number], Partial fill upon patient request if the prescriptionis for a schedule II opioid drug., 175, cm, ... Start Date: 08/15/23 Status: Ordered Farxiga 10 mg oral tablet 1 tablet = 10 mg, By Mouth, Daily, # 90 tablet, 0 Refills, Maintenance, 02/07/23 12:33:00 EDT, [facility] #[id number], Partial fill upon patient request if the prescription is for a schedule II opioid drug., 175, cm, 02/07/23 12:05:00 EDT... Start Date: 02/07/23 Status: Ordered ferrous sulfate 325 mg oral enteric coated tablet 325 mg, 1, tablet, By Mouth, Daily, # 90 tablet, Refills 0, Tot. Refills 0, Maintenance, 02/07/23 12:36:00 EDT, Route to Pharmacy Electronically, [facility] #[id number], Partial fill upon patient request if the prescription is for a schedule II o... Start Date: 02/07/23 Status: Ordered finasteride 5 mg oral tablet 1 tablet = 5 mg, By Mouth, Daily, # 90 tablet, 0 Refills, Maintenance, 02/07/23 12:28:00 EDT, Tablet, [facility] #[id number], Partial fill upon patient request if the prescription is for a schedule II opioid drug., 175, cm, 02/07/23 12:05:00 EDT,... Start Date: 02/07/23 Status: Ordered folic acid 0.8 mg oral tablet TAKE 1 TABLET BY MOUTH EVERY DAY Start Date: 07/14/23 Status: Ordered gabapentin 300 mg oral capsule 300 mg, Capsule, By Mouth, 08/15/23 9:00:00 EST Start Date: 08/15/23 Stop Date: 08/15/23 Status: Completed gabapentin 300 mg oral capsule 300 mg, 1, capsule, By Mouth, 2 times a day, # 60 capsule, Refills 3, Tot. Refills 3, Maintenance, 07/22/23 9:56:00 EST, Route to Pharmacy Electronically, [facility] #[id number], Partial fill upon patient request if the prescription is for a sche... Start Date: 07/22/23 Status: Ordered lactulose 10 gm/15 ml oral syrup See Instructions, PRN Other, Take 15 mL as needed for constipation, please maintain daily bowel movement, hold for excessive loose stool or diarrhea (more than 3 times a day)., # 480 mL, 0 Refills, Maintenance, 02/07/23 12:36:00 EDT, Syrup, [facility]... Start Date: 02/07/23 Status: Ordered Lipitor 80 mg oral tablet 1 tablet = 80 mg, By Mouth, Daily, # 90 tablet, 0 Refills, Maintenance, 02/07/23 12:28:00 EDT, Tablet, [facility] #[id number], 175, cm, 02/07/23 12:05:00 EDT, Height, 94, kg, 01/23/23 9:15:00 EDT, Dry Weight Start Date: 02/07/23 Status: Ordered midodrine 10 mg oral tablet 1 tablet = 10 mg, By Mouth, 3 times a day, To help maintain systolic blood pressure above 110-120 mmHg, # 90 tablet, 2 Refills, Maintenance, 02/07/23 12:33:00 EDT, Tablet, [facility] #[id number], Partial fill upon patient request if the [...] 02/07/23 12:29:00 EDT, Route to Pharmacy Electronically, [facility] #[id number],Partial fill upon patient request if the prescripti... [...] 0 Refills, Maintenance, 02/07/23 12:33:00 EDT, Tablet, [facility] #[id number], Partial fill upon patient request if the [...] February 2013. Urologist is Dr. Zafar [facility] ). Results Orders for Microbiology Reports Name Date Blood Culture 08/13/23 Microbiology Reports TEST:Blood Culture STATUS:Unauthenticated BODY SITE: SOURCE:Blood COLLECTED DATE/TIME:08/13/23 2:09 AM Blood Culture SPECIMEN DESCRIPTION : BLOOD NS SPECIAL REQUESTS : NONE CULTURE : NO GROWTH AFTER 48 HOURS REPORT STATUS : PRELIMINARY REPORT Radiology Reports * Exam Date Time Procedure Performing Provider Status 08/14/23 7:15 PM Ankle Min 3 Views Right Chana Xie i; Auth (Verified) Notes: (Ankle Min 3 Views Right) Reason For Exam: Pain RESULT: Ankle Min 3 Views Right Ankle Min 3 Views Right Reason: Pain; Clinical Question(s): Fracture COMPARISON: None. FINDINGS: No acute fracture. Diffuse osteopenia. Corticated fragmented osseous density inferior to the medial malleolus is likely sequela of remote avulsion injury. There is diffuse edema of the soft tissues. Mild degenerative changes and plantar calcaneal enthesophytes. IMPRESSION: No acute fracture. WSN: [id number] Ordering Physician: Melissa Wilson Dictated By: Nikki Hernandez MD Dictated Date/Time: 08/14/23 8:01 pm Reviewed By: Nikki Hernandez MD Signed By: Nikki Hernandez MD Signed Date/Time: 08/14/23 8:01 pm Transcribed By: CARLOS Transcribed Date/Time: 08/14/23 8:01 pm * Exam Date Time Procedure Performing Provider Status 08/13/23 2:25 PM US Retroperitoneum Comp Alexandra Dawkins; Auth (Verified) Notes: (US Retroperitoneum Comp) Reason For Exam: Other: RESULT: US Retroperitoneum Comp US Retroperitoneum Comp Reason: Clinical Question(s): Renal Obstruction; Special Instructions: can be done in am COMPARISON: CT abdomen and pelvis 07/11/2023, ultrasound retroperitoneum 01/26/2023 FINDINGS: Right kidney: 12.0 cm in length. No hydronephrosis. Normal parenchymal echotexture with mild cortical thinning. No stones. No suspicious mass. Left kidney: 11.8 cm in length. No hydronephrosis. Normal parenchymal echotexture with mild cortical thinning. Mild cortical thinning No stones. No suspicious mass. Urinary bladder: Well-distended with normal morphology. No stone, mass, wall thickening or debris. Slightly distended left ureter partially visualized. Prevoid volume: 820.2 cc. Postvoid volume: 418.8 cc. Partially imaged splenomegaly again demonstrated. Trace perihepatic and pelvic ascites. IMPRESSION: Well-distended urinary bladder with large postvoid residual. Renal cortical thinning with no hydronephrosis. Partially imaged splenomegaly again demonstrated with trace perihepatic and pelvic ascites. WSN: [id number] Ordering Physician: Chano Velazco Dictated By: David Weldon MD Dictated Date/Time: 08/13/23 3:24 pm Reviewed By: David Weldon MD Signed By: David Weldon MD Signed Date/Time: 08/13/23 3:24 pm Transcribed By: CARLOS Transcribed Date/Time: 08/13/23 2:54 pm * Exam Date Time Procedure Performing Provider Status 08/13/23 2:25 PM US Ascites [place] , Nicole; Auth (Ve rified) Notes: (US Ascites) Reason For Exam: Ascites RESULT: US Ascites US Ascites Reason: Ascites COMPARISON: Ultrasound studies 01/25/2023, ultrasound abdomen 08/12/2023, CT 07/11/2023 TECHNIQUE: Grayscale limited abdominal ultrasound of the 4 quadrants. FINDINGS: Mild ascites in the right upper quadrant. Trace fluid in the right lower quadrant, left upper and lower quadrants. Improved compared to prior. Partially visualized liver shows coarse echotexture with mildly nodular contour. IMPRESSION: Mild ascites. Cirrhotic morphology. I have personally reviewed the images and I agree with this report. WSN: [id number] Ordering Physician: Chano Velazco Dictated By: Mena Mahajan MD Dictated Date/Time: 08/13/23 3:42 pm Reviewed By: David Weldon MD Signed By: David Weldon MD Signed Date/Time: 08/13/23 3:47 pm Transcribed By: CARLOS Transcribed Date/Time: 08/13/23 3:02 pm * Exam Date Time Procedure Performing Provider Status 08/12/23 9:05 PM US Abdominal Doppler Ltd Melba Nicole; Auth (Verified) Notes: (US Abdominal Doppler Ltd) Reason For Exam: concern for portal vein thrombosis;Other: RESULT: US Abdominal Doppler Ltd US Abdominal Doppler Ltd HX OF PRESENT ILLNESS: pt told to go to ed by cardiology due to fluid overload. hx of liver, heart and renal failure. only complaint is pain in right leg from overload swelling. given 2 units at [facility] two days ago for anemia.; Reason: Other:; concern for portal vein thrombosis; Clinical Question(s): Thrombosis; Order Comment: US Duplex Abd Art Vein Flow Ltd Prep COMPARISON: 07/13/2023. IMAGING TECHNIQUE: Grayscale and color Doppler ultrasound examination of the liver. FINDINGS: Main portal vein patent with normal hepatopetal direction of flow. No evidence of thrombus. IMPRESSION: Patent main portal vein without any evidence of thrombus. I have personally reviewed the images and I agree with this report. WSN: [id number] Ordering Physician: Aiden Esteves Dictated By: Ammy Washington MD Dictated Date/Time: 08/12/23 9:38 pm Reviewed By: Gigi Lepe MD Signed By: Gigi Lepe MD Signed Date/Time: 08/12/23 9:43 pm Transcribed By: CARLOS Transcribed Date/Time: 08/12/23 9:22 pm * Exam Date Time Procedure Performing Provider Status 08/12/23 9:05 PM US Doppler Ext Lower Venous Bilat Henna Nicole; Auth (Verified) Notes: (US Doppler Ext Lower Venous Bilat) Reason For Exam: Pain in limb;Other: RESULT: US Doppler Ext Lower Venous Bilat US Doppler Ext Lower Venous Bilat HX OF PRESENT ILLNESS: pt told to go to ed by cardiology due to fluid overload. hx of liver, heart and renal failure. only complaint is pain in right leg from overload swelling. given 2 units at [facility] two days ago for anemia.; Reason: Pain in limb; Clinical Question(s): Thrombosis COMPARISON: None IMAGING TECHNIQUE: Ultrasound of the veins from the groin through the calf was performed using grayscale, color, and spectral Doppler ultrasound assessing for complete compressibility and normal flowcharacteristics. FINDINGS: RIGHT LOWER EXTREMITY: Common femoral vein: Patent. No thrombosis. Femoral vein: Patent. No thrombosis. Popliteal vein: Patent. No thrombosis. Gastrocnemius veins: The visualized portions are patent without evidence of thrombosis. Peroneal veins: The visualized portions are patent without evidence of thrombosis. Posterior tibial veins: The visualized portions are patent without evidence of thrombosis. LEFT LOWER EXTREMITY: Common femoral vein: Patent. No thrombosis. Femoral vein: Patent. No thrombosis. Popliteal vein: Patent. No thrombosis. Gastrocnemius veins: The visualized portions are patent without evidence of thrombosis. Peroneal veins: Not visualized. Posterior tibial veins: The visualized portions are patent without evidence of thrombosis. OTHER FINDINGS: There is mild calf edema. IMPRESSION: No evidence of deep venous thrombosis. I have personally reviewed the images and I agree with this report. WSN: [id number] Ordering Physician: Aiden Esteves Dictated By: Ammy Washington MD Dictated Date/Time: 08/12/23 9:27 pm Reviewed By: Gigi Lepe MD Signed By: Gigi Lepe MD Signed Date/Time: 08/12/23 9:32 pm Transcribed By: CARLOS Transcribed Date/Time: 08/12/23 9:19 pm * Exam Date Time Procedure Performing Provider Status 08/12/23 5:50 PM Chest 2 Views Frontal and Lat Lalito Covarrubias; Auth (Verified) Notes: (Chest 2 Views Frontal and Lat) Reason For Exam: Chest Pain;Other: RESULT: Chest 2 Views Frontal and Lat Chest 2 Views Frontal and Lat Hx of Present Illness: pt told to go to ed by cardiology due to fluid overload. Hx of liver, heart and renal failure. Only complaint is pain in right leg from overload swelling. Given 2 units at [facility] two days ago for anemia.; Reason: Other:; Chest Pain; Clinical Question(s): Other: COMPARISON: 07/11/2023. FINDINGS: LINES AND TUBES: Dual-lead left subclavian pacer/AICD wires are intact. LUNGS AND PLEURA: Clear lungs. Normal pulmonary vascularity. No pleural effusion. No pneumothorax. HEART, MEDIASTINUM AND KAYE: Heart is normal in size. Normal mediastinal and hilar contour. BONES AND SOFT TISSUES: No acute abnormality. IMPRESSION: No acute abnormality. WSN: [id number] Ordering Physician: Blaise Anderson Dictated By: Ching Martini MD Dictated Date/Time: 08/12/23 5:51 pm Reviewed By: Ching Martini MD Signed By: Ching Martini MD Signed Date/Time: 08/12/23 5:51 pm Transcribed By: CARLOS Transcribed Date/Time: 08/12/23 5:51 pm Vital Signs Most recent to oldest [Reference Range]: 1 2 3 Height 175 cm (08/15/23 7:44 AM) 175 cm (08/15/23 2:00 AM) 175 cm (08/14/23 8:46 PM) Weight 82.8 kg (08/15/23 5:33 AM) 84.6 kg (08/14/23 2:49 PM) 84.6 kg (08/14/23 5:33 AM) Oxygen Saturation [94-100 %] 98 % (08/15/23 7:44 AM) 97 % (08/15/23 2:00 AM) 97 % (08/14/23 8:46 PM) Pulse Rate [55-90 bpm] 70 bpm (08/15/23 11:07 AM) 70 bpm (08/15/23 7:44 AM) 66 bpm (08/15/23 2:00 AM) Body Mass Index [18.5-24.99 kg/m2] 28.41 kg/m2 *H* (08/13/23 8:36 AM) Blood Pressure [90-138/55-84 mm Hg] 99/70mm Hg (08/15/23 11:07 AM) 99/70mm Hg (08/15/23 7:44 AM) 106/47mm Hg (08/15/23 2:00 AM) Respiratory Rate [16-30 br/min] 20 br/min (08/15/23 12:07 PM) 20 br/min (08/15/23 11:07 AM) 18 br/min (08/15/23 7:44 AM) Temperature [96.8-100.4 DegF] 98.1 DegF (08/15/23 7:44 AM) 97.8 DegF (08/15/23 2:00 AM) 97.8 DegF (08/14/23 8:46 PM) Mode of Delivery (Oxygen) Room air (08/15/23 7:44 AM) Room air (08/14/23 8:46 PM) Room air (08/14/23 3:07 PM) Blood pressure sites Arm, left (08/15/23 7:44 AM) Arm, left (08/15/23 2:00 AM) Arm, left (08/14/23 8:46 PM) Temperature Route Temporal (08/15/23 7:44 AM) Temporal (08/15/23 2:00 AM) Temporal (08/14/23 8:46 PM) Dry Weight 79.5 kg (08/13/23 8:36 AM) Weight Obtained Via Bed scale (08/15/23 5:33 AM) Bed scale (08/14/23 5:33 AM) Bed scale (08/13/23 8:36 AM) Dry Weight Obtained Via Patient/family s tated (08/13/23 8:36 AM) Social History Social History Type Response Smoking Status Never (less than 100 in lifetime) entered on: 06/02/22 Sex Admission evaluation note * Juan A ROONEY, Chano Culp: MODIFY, MODIFY, MODIFY, PERFORM Event Display: Admission Note Authored Date: Patient: ??GILLES WRIGHT ? Age:??78 Years?Sex:??Male?:??1945?? Chief Complaint/Reason for Consultation Lower extremity swelling, abdominal distension, weight gain. History of Present Illness 78-year-old male patient with an extensive medical history including hypotension (on midodrine), hyperlipidemia, diabetes mellitus, chronic kidney disease, coronary artery disease, aortic stenosis status post TAVR, complete heart block status post permanent pacemaker placement, heart failure with preserved ejection fraction, decompensated liver cirrhosis (ascites - esophageal varices, MELD score 15, Child Harry B), chronic anemia,??obstructive sleep apnea on CPAP machine and is being treated forenterococcus faecalis bacteremia and possible infective endocarditis who presented to the emergencydepartment for evaluation of bilateral lower extremity swelling, abdominal distension and weight gain. ?? Patient was admitted to the hospital from July 11 to July 25 2023 with enterococcus faecalis bacteremia and possible infective endocarditis, acute kidney on chronic kidney injury, and ascites: He presented with generalized weakness??and was??found to have enterococcal faecalis bacteremiawith unclear source, started on??Ampicillin. TTE negative for vegetations; however cardiac CT??showed vegetations. Ceftriaxone??was later added. He was evaluated by??Cardiology and cardiac surgery??and the decision was made to hold off any surgical intervention given he is high surgical risk and considering chronic??suppressive??antibiotic therapy. Also decision was made to hold of extracting transvenous??pacemaker in light of negative blood culture and possibility of patient being on chronic antibiotic with the possibility to revisit this decision??if blood culture becomes positive in futureor as out- patient.?In regard??to his kidney function it was thought to??be pre- renal??therefore furosemide??was held with improvement in his creatinine.? Since his discharge patient has had few medical encounter/ED visits at OSH including mechanical fall with head and lower extremity laceration on Thanksgiving, and another one after being called by??his physician office for worsening anemia, received blood??transfusion and sent home.?He has noticed worsening bilateral lower extremity swelling over the last 2 weeks, increasing abdominal distension and 20 bound weight gain. He denies shortness of breath, orthopnea, fever, chills, chest pain,abdominal pain, nausea, vomiting, change in bowel habit, GI bleed or urinary symptoms. ?? In the emergency department patient was afebrile, hemodynamic stable, on room air with good saturation.?? Labs were significant for stable anemia and thrombocytopenia with hemoglobin of 8.1 and platelets of 134, elevate creatinine of 1.6 mg/dl, proBNP of 583 and HST of 44. Chest x-ray with no acute abnormalities, abdominal US with no evidence of portal vein thrombosis, and lower extremity US reported with no DVT. He was given 40 of IV Lasix and being admitted for further management.?? Review of Systems Constitutional:?No weight loss, fever, chills, weakness or fatigue. Cardiovascular:??No chest pain,pressure or discomfort. No palpitations or pedal edema. Respiratory:??No shortness of breath, cough or sputum production. Gastrointestinal:?? abdominal distension. Genitourinary: No burning micturition. No urinary frequency [...] and are negative.?? Objective Vital Signs?? Temperature: 97.6 DegF (08/12/23 17:02:00) Temperature Route: Oral (08/12/23 17:02:00) Pulse Rate: 67 bpm (08/12/23 23:32:00) Respiratory Rate: 17 br/min (08/12/23 23:32:00) Systolic Blood Pressure: 128 mm Hg (08/12/23 23:32:00) Diastolic Blood Pressure:??53 mm Hg??Low (08/12/23 23:32:00) Blood pressure sites: Arm, right (08/12/23 23:32:00) Mean Arterial Pressure: 78 mm Hg (08/12/23:32:00) Pulse Pressure: 75 mm Hg (08/12/23 23:32:00) Oxygen Saturation: 99 % (08/12/23 23:32:00) Mode of Delivery (Oxygen): Room air (08/12/23 23:32:00) Early Warning Score: 5 (08/12/23:32:27) ? Physical Exam Constitutional: Alert, in no acute distress. Head: laceration over the right side of head is covered with Band-Aid. Eyes: Pupils are equal, round and reactive to light. Extraocular muscles intact. Ear, Nose and Throat: mucous membranes moist. Ears and nose - no obvious deformities. Neck: No JVD or bruits. Respiratory:??Clear to auscultation. No wheezing or rhonchi.??No use of accessory muscles. Cardiovascular:?? S1 S2 regular. systolic murmur, rubs or gallops. Gastrointestinal:??Abdomen soft, non-tender, distended. Extremities: bilateral lower extremity edema. Neurologic:??AAOx3, Cranial nerves II-XII grossly intact. Speech normal, no facial droop. No focal neurological deficits. Musculoskeletal:??No gross deformities on inspection. Psychiatric: Normal mood and affect. Assessment/Plan 78-year-old male patient with an extensive medical history including hypotension (on midodrine), hyperlipidemia, diabetes mellitus, chronic kidney disease, coronary artery disease, aortic stenosis status post TAVR, complete heart block status post permanent pacemaker placement, heart failure with preserved ejection fraction, decompensated liver cirrhosis (ascites - esophageal varices, MELD score 15, Child Harry B), chronic anemia,??obstructive sleep apnea on CPAP machine and is being treated forenterococcus faecalis bacteremia and possible infective endocarditis who presented to the emergencydepartment for evaluation of bilateral lower extremity swelling, abdominal distension and weight gain ?? Diagnoses 1. ??Fluid overload, unspecified ??(E87.70) 2. ??Lower extremity edema ??(R60.0) 3. ??Abdominal distension ??(R14.0) 4. ??Weight gain ??(R63.5) 5. ??Chronic kidney disease ??(N18.9) 6. ??Elevated serum creatinine ??(R79.89) 7. ??Bacteremia ??(R78.81) 8. ??Infective endocarditis ??(I33.0) 9. ??Hypotension ??(I95.9) 10. ??Hyperlipidemia ??(E78.5) 11. ??Liver cirrhosis ??(K74.60) 12. ??CAD (coronary artery disease), LAD ??(I25.10) 13. ??Status post transcatheter aortic valve replacement (TAVR) using bioprosthesis ??(Z95.3) 14. ??Status post placement of cardiac pacemaker ??(Z95.0) 15. ??CHF (congestive heart failure) ??(I50.9) 16. ??Anemia ??(D64.9) 17. ??ANUJA on CPAP ??(G47.33) 18. ??Diabetes mellitus type 2, insulin ??(E11.9) 19. History of BPH ??(Z87.438) ?? Fluid overload, unspecified (E87.70):??Lower extremity edema (R60.0), Abdominal distension (R14.0),and 20 pounds weight gain (R63.5):?? Contributing factors include decompensated liver cirrhosis, diastolic heart failure and kidney disease. - IV Lasix 40 daily. - Abdominal US with renal US. - Echocardiogram. - consult IR in AM for paracentesis. ?? Chronic kidney disease (N18.9):?? Elevated serum creatinine (R79.89):?? EMMANUEL on CKD versus progression of CKD. - send UA. - send urine Na, Urea and creatinine. - consult renal in AM. - hold Farxiga. ?? Bacteremia (R78.81):?? 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 - continue ceftriaxone and penicillin G. - f/u blood culture. - f/u with ID and cardiology as out-patient. ?? Liver cirrhosis (K74.60):??Follows with??Dr. Burns ([facility])?? - continue lactulose as needed. - Lasix 40 IV daily. - Abdominal US for ascites (underwent paracentesis on 07/12- negative for SBP) ?? Last underwent EGD about a year ago (?2021)- Seen by our GI team in January for consideration of??EGD for esophageal variceal screen prior to LISANDRA to assess for??endocarditis- GI had recommended??esophageal variceal screening AFTER LISANDRA; neither ended up happening- felt patient was too high of a risk. ?? Hyperlipidemia (E78.5):?? CAD (coronary artery disease), LAD (I25.10):?? Status post transcatheter aortic valve replacement (TAVR) using bioprosthesis (Z95.3):??- Status post placement of cardiac pacemaker (Z95.0):?? CHF (congestive heart failure) (I50.9):??Patient had moderated diastolic dysfunction on most recentechocardiogram. - echocardiogram - IV Lasix 40 once daily. - continue aspirin, Plavix, and carvedilol. - hold statin and ezetimibe given decompensated liver cirrhosis. ?? Diabetes mellitus type 2, insulin (E11.9):??on Farxiga, Trulicity, Tresiba 60 unit at night, and sliding scale at home. - continue sliding scale. - Lantus 10 units at night (glucose in the 100s). - hold Farxiga and Trulicity. - diabetic diet. ?? History of BPH (Z87.438):?? H/O Prostate Cancer s/p Radiation and Hormonal Therapy in 2012/2013: -Continue home Finasteride, Bethanechol, Tamsulosin ?? Hypotension (I95.9):?? - continue midodrine as needed. ?? Anemia (D64.9):?? - continue ferrous sulfate. ? ANUJA on CPAP (G47.33):?? - CPAP at night ?? Code Status:??DNR/DNI - confirmed with patient - he reports signing MOLST form at OSH. Hold chemical VTE for now - can start after paracentesis Histories Allergies Allergies ?(Active and Proposed Allergies Only) TiZANidine Hydrochloride? (Severity: Unknown severity, Onset: Unknown) ?Reactions: hallucination pregabalin? (Severity: Unknown severity, Onset: Unknown) ?Reactions: hallucination lisinopril? (Severity: Unknown severity, Onset: Unknown) ?Reactions: throat swelling ?Comments: throat swelling Latex? (Severity: Unknown severity, Onset: Unknown) ?Reactions: Rash ? Past Medical History/Problem List Active Problems??(12) CAD (coronary artery disease), LAD CHF (congestive [...] oral capsule)?2?capsule?1,000?Milligram?By Mouth?3 times a day?for 40?Days Aspirin (aspirin 81 mg oral delayed release tablet)?81?Milligram?1?tablet?By Mouth?Daily?Do not start aspirin until 06/16/2022 Atorvastatin (Lipitor 80 mg oral tablet)?1?tab(s)?80?Milligram?By Mouth?Daily Bethanechol (bethanechol 25 mg oral tablet)?25?Milligram?1?tablet?By Mouth?2 times a day Carvedilol (Coreg 6.25 mg oral tablet)?6.25?Milligram?1?tablet?By Mouth?2 times aday?Hold if systolic blood pressure is below 120 mmHg and/or heart rate is below 55 [id number] Ceftriaxone (ceftriaxone 2 gm injectable powder for [...] FILLED 10/01/22) ? Results Recent Labs BLOOD COUNT & DIFF WBC 4.8 k/mm3 ()?? 08/12/2023 17:48 RBC 3.09 m/mm3 (Low)?? 08/12/2023 17:48 Hgb 8.1 Gm/dL (Low)?? 08/12/2023 17:48 Hct 27.2 % (Low)?? 08/12/2023 17:48 MCV 88.0 femtoliters ()?? 08/12/2023 17:48 MCH 26.2 pg (Low)?? 08/12/2023 17:48 MCHC 29.8 g/dL (Low)?? 08/12/2023 17:48 Platelet Count 134 k/mm3 (Low)?? 08/12/2023 17:48 RDW-SD 55.2 femtoliters (High)?? 08/12/2023 17:48 MPV 11.1 femtoliters ()?? 08/12/2023 17:48 Nucleated RBC (Automated) 0.0 #/100 WBC'S ()?? 08/12/2023 17:48 Abs. NRBC 0.0 k/mm3 ()?? 08/12/2023 17:48 Abs. Neut 3.7 k/mm3 ()?? 08/12/2023 17:48 Abs. Lymph 0.4 k/mm3 (Low)?? 08/12/2023 17:48 Abs. Randolph 0.6 k/mm3 ()?? 08/12/2023 17:48 Abs. Eo 0.0 k/mm3 ()?? 08/12/2023 17:48 Abs. Baso 0.0 k/mm3 ()?? 08/12/2023 17:48 Neut % 77.1 % (High)?? 08/12/2023 17:48 Lymph % 9.2 % (Low)?? 08/12/2023 17:48 Randolph % 11.7 % (High)?? 08/12/2023 17:48 Eos % 0.8 % ()?? 08/12/2023 17:48 Baso % 0.8 % ()?? 08/12/2023 17:48 Imm Gran 0.4 % ()?? 08/12/2023 17:48 Abs. Imm Gran 0.0 k/mm3 ()?? 08/12/2023 17:48 ?? CARDIAC Nt-Probnp 583 pg/mL (High)?? 08/12/2023 17:48 High Sensitivity Troponin (HSTnT) 44 ng/L (High)?? 08/12/2023 17:48 ?? CHEM GENERAL Sodium 143 mmol/L ()?? 08/12/2023 17:48 Potassium 4.7 mmol/L ()?? 08/12/2023 17:48 Chloride 108 mmol/L (High)?? 08/12/2023 17:48 Bicarbonate Level 23 mmol/L ()?? 08/12/2023 17:48 Anion Gap 12 ()?? 08/12/2023 17:48 Glucose Level 111 mg/dL (High)?? 08/12/2023 17:48 BUN 41 mg/dL (High)?? 08/12/2023 17:48 Creatinine-Blood 1.6 mg/dL (High)?? 08/12/2023 17:48 Estimated GFR Creatinine 45 ML/MIN/1.73 M2 ()?? 08/12/2023 17:48 Calcium 8.7 mg/dL ()?? 08/12/2023 17:48 Protein, Total 6.2 Gm/dL ()?? 08/12/2023 21:22 Albumin 3.3 Gm/dL (Low)?? 08/12/2023 21:22 Alkaline Phosphatase 168 units/L (High)?? 08/12/2023 21:22 AST (SGOT) 24 units/L ()?? 08/12/2023 21:22 ALT (SGPT) 19 units/L ()?? 08/12/2023 21:22 Bilirubin, Total 0.5 mg/dL ()?? 08/12/2023 21:22 Bilirubin, Direct 0.2 mg/dL ()?? 08/12/2023 21:22 Bilirubin, Indirect 0.3 mg/dL ()?? 08/12/2023 21:22 ?? HEME OTHER Hold Blue Top SPECIMEN DISCARDED AFTER 4 HOURS. ()?? 08/12/2023 17:48 ? Cardiology * Event Display: Cardiac Rhythm Strips Authored Date: EKG study * Event Display: EKG Authored Date: Hospital Progress note * Jez Faust MD: PERFORM, SIGN, VERIFY Event Display: Progress Note Hospital Authored Date: Patient: GILLES WRIGHT Age: 78 years Sex: Male : 1945 Associated Diagnoses: None Author: Jez Faust MD Overnight Events & Current Issues Patient is resting in the bed. Anxious to be discharged. Edema has improved. Creatinine slightly higher at 1.8. Review of Systems Review of Systems Constitutional: no chills, no fever. Respiratory: dyspnea improved. Cardiovascular: peripheral edema. Physical Examination Vitals Vitals : VITAL SIGNS SECTION 08/15/2023 7:44 EST Temperature 98.1 DegF Temperature Route Temporal Pulse Rate 70 bpm Respiratory Rate 18 br/min Systolic Blood Pressure 99 mm Hg Diastolic Blood Pressure 70 mm Hg Blood pressure sites Arm, left Mean Arterial Pressure 80 mm Hg Pulse Pressure 29 mm Hg Oxygen Saturation 98 % Mode of Delivery (Oxygen) Room air . General Appearance No apparent distress. HEENT Moist mucous membranes. Respiratory Decreased breath sounds. Cardiac No murmur/gallop/rub. Extremities No clubbing. No cyanosis. Lower extremity edema: trace. Neurologic Alert. Oriented x 3 . Results Review General resultsToday's results : Results 08/15/2023 3:15 EST Sodium 138 mmol/L Potassium 4.3 mmol/L Chloride 105 mmol/L Bicarbonate Level 26 mmol/L Anion Gap 7 Glucose Level 122 mg/dL H BUN 49 mg/dL H Creatinine-Blood 1.7 mg/dL H Estimated GFR Creatinine 41 ML/MIN/1.73 M2 Calcium 8.1 mg/dL L . Impression and Plan Comprehensive Plan An 78-year-old with pmh of scites and esophageal varices, severe aortic stenosis - TAVR , complete heart block- s/p ppm, lumbar fusion hardware( 5 years prior), recent completed treatment for epidural abscess with C5-C6 osteomyelitis. Nephrology consulted for acute kidney injury on chronic kidney disease in setting of cirrhosis and hypervolemia. Acute kidney injury. vs CKD3a with BL cr of 1.5, egfr 47 Creatinine today is 1.8. Hypervolemia with mild ascites and lower extremity edema. Has improved Most likely has a combination of chronic renal hypoperfusion from his liver cirrhosis along with possibly some component of diabetic nephropathy causing the chronic component . Can start Bumex 1 mg daily starting Thursday Decrease losartan to 50 mg daily Follow-up in our office Discussed with the medical team Can be discharged * Fabricio Quinn RN: PERFORM, SIGN, VERIFY Event Display: Progress Note Hospital Authored Date: Patient: GILLES WRIGHT Age: 78 years Sex: Male : 1945 Associated Diagnoses: None Author: Fabricio Quinn RN Findings Problem Related to Alteration in Cardiac Function (new) : Alteration in Cardiac Function/new 08/15/2023 9:00 EST Alteration in Cardiac Status Related to Heart failure Goals & Outcomes, Cardiac Status Pt will resume/maintain adequate cardiac output, Pt will resume/maintain adequate hemodynamic status, Pt will resume/maintain adequate respiratory function, Pt will resume/maintain intact neuro function, Pt will maintain adequate GI/ function appropriate for pt, Pt will maintain adequate nutrition status, Pt/caregiver will state understanding of diagnosis Cardiac Interventions Implemented Assess/monitor cardiac status, Assess/monitor neuro status, Assess/monitor respiratory status, Call/Report variances in ECG to provider, Document & Monitor O2 Sats; Administer O2 as ordered, Ensure adequate caloric intake, If no bowel movement in 3 days activate bowel regime, Monitor & document daily weight BH Goals/Interventions, Cardiac Yes Cardiac, Problem Start 08/12/2023 22:46 Reviewed Plan with, Cardiac Status Patient Patient Progression, Cardiac Status Patient progressing according to plan . Alteration in Immunologic : Alteration in Immunologic Function/new 08/15/2023 9:00 EST Alteration Immunologic Status Related to Other: bacteremia,?endocarditis Goals & Outcomes, Immunologic Pt will maintain/resume normal fluid/electrolyte balance, Pt willmaintain intact skin integrity, Pt will not develop complications r/t immobility, Inflammatory/infectious process will resolve, Wound healing will take place, Pt will show proper technique wt self care procedures Interventions, Immunologic Maintain patent IV access, Monitor Intake & Output, Maintain and monitor nutritional intake, Assess for presence and degree of edema, Assess skin integrity, Provide nonpharmocologic comfort measures, Other: maintain iv antibiotic treatment BH Goals/Interventions, Immunologic Yes Immunologic, Problem Start 08/12/2023 22:46 Reviewed Plan with, Immunologic Patient Patient Progression, Immunologic Status Pt progressing according to plan . Nursing Data Cardiac Data. : Cardiac Data. 08/15/2023 9:00 EST Cardiovascular Symptoms Edema present Nail Bed Color, Fingers Pale Nail Bed Color, Toes Pale Skin Temperature Upper Extremities Warm, Dry Skin Temperature Lower Extremities Warm, Dry Heart Sounds S1, S2 Heart Rhythm Regular Pacemaker Yes Cardiovascular Comment right arm picc line site without redness/swelling/dge and dsg=dry/intact Cardiac Rhythm Paced Capillary Refill < 3 seconds Ankle, left 1+ trace Ankle, right 1+ trace Pedal, left 1+ trace Pedal, right 1+ trace gambling monitor Yes Cardiovascular WNL except 08/15/2023 7:07 EST Hgb 7.4 Gm/dL L Hct 24.4 % L . Gastrointestinal Data. : Gastrointestinal Data. 08/15/2023 9:00 EST GI WNL . Genitourinary Data. : Genitourinary Data. 08/15/2023 9:00 EST WNL . Integumentary Data. : Integumentary Data. 08/15/2023 9:00 EST Forehead Right Anterior Skin Abnormality Type: Laceration Wound Assessment Activity: Reassessment Wound Dressing: Other: sutures intact, no redness/dge/swelling Knee Right Skin Abnormality Type: Abrasion Wound Assessment Activity: Reassessment Wound Dressing: Band-Aid Wound Dressing Assessment: Clean, Dry Drainage Amount: None . Musculoskeletal Data. : Musculoskeletal Data. 08/15/2023 9:00 EST Musculoskeletal Symptoms Joint tenderness, Weakness Musculoskeletal Comment uses voltaren for chronic joint pain . Neurological Data. : Neurological Data. 08/15/2023 12:07 EST Pain Intensity 0 08/15/2023 11:07 EST Pain Intensity 0 Pain Intensity 0 08/15/2023 9:00 EST Neurological Symptoms Weakness or loss of muscle strength, Other: neuropathy controlled with gabapentin Pain Location Other: multiple joints, neuropathy Pain Interventions Pharmacological Pain Comment takes gabapentin to control neuropathy and voltaren cream for arthritic joints Neuro WNL except . Respiratory/Pulmonary Data. : Respiratory/Pulmonary Data. 08/15/2023 9:00 EST Respiratory Symptoms Other: has sleep apnea but does not wear cpap Left Lower Lobe Breath Sounds Diminished Right Lower Lobe Breath Sounds Diminished Respiratory WNL except . Vital Signs : VITAL SIGNS SECTION 08/15/2023 7:44 EST Temperature 98.1 DegF Temperature Route Temporal Pulse Rate 70 bpm Respiratory Rate 18 br/min Systolic Blood Pressure 99 mm Hg Diastolic Blood Pressure 70 mm Hg Blood pressure sites Arm, left Mean Arterial Pressure 80 mm Hg Pulse Pressure 29 mm Hg Oxygen Saturation 98 % Mode of Delivery (Oxygen) Room air . Clinical Measurements : CLINICAL MEASUREMENTS 08/15/2023 5:33 EST Weight 82.8 kg 08/14/2023 14:49 EST Weight 84.6 kg . Narrative/Incidental Weight down 1.8kg overnight on sodium/cardiac restricted diet and no diuretic, some LE edema but noshortness of breath, tolerating eating at meals with glucose covered per scale, oob to cardiac chair and to BR with walker & assistance (right ankle not bothering him), no neuropathic pain or discomfort; repeat Hgb 7.4 without overt sx bleeding; afebrile on ivab via PICC line, right forehead laceration and right knee abrasion remain stable, there is a right neck lesion that bandaid dsg was applied . Plan is for discharge home with iv antibiotics.. * Wanye TAPIA, Pedro Hernandez: PERFORM Event Display: Progress Note Hospital Authored Date: Patient: ??GILLES WRIGHT ? Age:??78 Years?Sex:??Male?:??1945?? Paged by RN to report drop in H&H to 6.6/22.3.?? No bleeding or hemodynamic instability noted.?? Patient on room air.?? Saw patient at bedside to obtain blood transfusion consent.?? Patient reports receiving blood in the past at outside hospital without issues.?? Patient still adamant about going home today would like H&H repeated while obtaining type and screen prior to going through with transfusion.?? Labs ordered, consent obtained. Note * Mary Sy RN: PERFORM Event Display: Discharge/Transfer Note Hospital Authored Date: Nursing Discharge Note Entered On: 08/15/2023 15:23 EST Performed On: 08/15/2023 15:22 EST by Mary Sy RN Nursing Discharge Note 2 Discharge Time : 08/15/2023 15:15 EST Discharge Level of Care at Discharge : Home/Usp/Foster Care Discharge VNA/Hospice/Home Care(v001) : [facility] [phone] Patient Left Unit Via : Wheelchair Patient Accompanied Off Unit with : Responsible adult DC Instructions Provided & Signed by Pt : Yes Patient Understands D/C Instructions : Yes Verbalized Understanding of D/C Plan By : Family, Patient Patient Instructions Discharge Signed : Yes Did Pt have Specialty Bed or Wound Vac : No Mary Sy RN - 08/15/2023 15:22 EST * Melissa Wilson MD: MODIFY, MODIFY, PERFORM Event Display: Discharge/Transfer Note Hospital Authored Date: [id number] Patient: ??GILLES WRIGHT ? Age:??78 Years?Sex:??Male?:??1945?? Patient Information Discharge Location: 7 Primary Care Physician: Roberto Carlos Arzola Admit Date/Time: 08/12/23 22:46 Discharge Disposition Discharge Disposition: Home with Home Health Discharge Diagnosis Fluid overload, unspecified (E87.70) Lower extremity edema (R60.0) Abdominal distension (R14.0) Weight gain (R63.5) Chronic kidney disease (N18.9) Elevated serum creatinine (R79.89) Bacteremia (R78.81) Infective endocarditis (I33.0) Hypotension (I95.9) Hyperlipidemia (E78.5) Liver cirrhosis (K74.60) CAD (coronary artery disease), LAD (I25.10) Status post transcatheter aortic valve replacement (TAVR) using bioprosthesis (Z95.3) Status post placement of cardiac pacemaker (Z95.0) CHF (congestive heart failure) (I50.9) Anemia (D64.9) ANUJA on CPAP (G47.33) Diabetes mellitus type 2, insulin (E11.9) History of BPH (Z87.438) ?? _ Discharge Medications Alprazolam (ALPRAZolam 0.5 mg oral tablet)?TAKE 1 TABLET BY MOUTH TWICE DAILY NEEDED FOR ANXIETY Amoxicillin (amoxicillin 500 mg oral capsule)?2?capsule?1,000?Milligram?By Mouth?3 times a day?for 40?Days Aspirin (aspirin 81 mg oral delayed release tablet)?81?Milligram?1?tablet?By Mouth?Daily?Do not start aspirin until 06/16/2022 Atorvastatin (Lipitor 80 mg oral tablet)?1?tab(s)?80?Milligram?By Mouth?Daily Bethanechol (bethanechol 25 mg oral tablet)?25?Milligram?1?tablet?By Mouth?2 times a day Bumetanide (bumetanide 1 mg oral tablet)?1?Milligram?1?tablet?By Mouth?Daily Carvedilol (Coreg 6.25 mg oral tablet)?6.25?Milligram?1?tablet?By Mouth?2 times aday?Hold if systolic blood pressure is below 120 mmHg and/or heart rate is below 55 [id number] Ceftriaxone (ceftriaxone 2 gm injectable powder for [...] capsule)?0.4?Milligram?1?capsule?By Mouth?Daily?(LAST FILLED 10/01/22) ? Medications Started Bumetanide (bumetanide 1 mg oral tablet)?1?Milligram?1?tablet?By Mouth?Daily, start from 08/17/23 Diclofenac Topical (diclofenac 1% topical gel)?4?gram?Topically?4 times a day?as needed?Pain , Moderate Future Appointments Thursday 11:40 AM EST ?? With: Harper ROONEY, Cole Culp Where: [facility] Infectious Disease [address] [place], [place] [id number]- Status: Pending Hospital Course ?? 78-year-old male patient with an extensive medical history including hypotension (on midodrine), hyperlipidemia, diabetes mellitus, chronic kidney disease, coronary artery disease, aortic stenosis status post TAVR, complete heart block status post permanent pacemaker placement, heart failure with preserved ejection fraction, decompensated liver cirrhosis (ascites - esophageal varices, MELD score 15, Child Harry B), chronic anemia,??obstructive sleep apnea on CPAP machine and is being treated forenterococcus faecalis bacteremia and possible infective endocarditis who presented to the emergencydepartment for evaluation of bilateral lower extremity swelling, abdominal distension and weight gain ? Fluid overload, unspecified (E87.70):??Lower extremity edema (R60.0), Abdominal distension (R14.0),and 20 pounds weight gain (R63.5):?? Acute kidney injury on CKD Contributing factors include decompensated liver cirrhosis, diastolic heart failure and kidney disease. s/p IV Lasix 40 dailyx 3 days, added albumin 25% q6h x6 doses. Stopped??on 08/14 as??creatinine worsening ??ECHO earlier this month which sowed EF 65-70%, no wma, some diastolic dysfunction IR??cancelled paracentesis as mild ascites on US (underwent paracentesis on 07/12- negative for SBP) plan nephrology on [facility], recommended to start?? Bumex 1 mg, to be started from 08/17/2023 Reinforced dietary compliance, patient mentioned that he would watch his diet.?? Food list was given by nutrition ? Bacteremia (R78.81):?? 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 These were recent diagnoses - continue ceftriaxone 2 Q12??and penicillin G (was discharegd on IV penicillin,??however??patient could not do IV penicillin,??so ID later ??prescribed??p.o??amoxicillin for him, 1000 mg TID). Did IV in the hospital - PCP to f/u with final blood culture. - f/u with ID and cardiology as outpatient. ?? Liver cirrhosis (K74.60): ??Follows with??Dr. Burns ([place])?? - continue lactulose as needed. -Last underwent EGD about a year ago (?2021)- Seen by our GI team in January for consideration of??EGD for esophageal variceal screen prior to LISANDRA to assess for??endocarditis- GI had recommended??esophageal variceal screening AFTER LISANDRA; neither ended up happening- felt patient was too high of a risk. outpatient GI follow up ?? right ankle pain had a fall, complaining of right ankle pain ordered XR: no acute fracture?? discharged on diclofenac gel ? Hyperlipidemia (E78.5):?? CAD (coronary artery disease), LAD (I25.10):?? Status post transcatheter aortic valve replacement (TAVR) using bioprosthesis (Z95.3):??- Status post placement of cardiac pacemaker (Z95.0):?? CHF (congestive heart failure) (I50.9):??Patient had moderated diastolic dysfunction on most recentechocardiogram. - continue aspirin, Plavix, and carvedilol. -??resumed statin and ezetimibe given decompensated liver cirrhosis. ?? Diabetes mellitus type 2, insulin (E11.9):??on Farxiga, Trulicity, Tresiba 60 unit at night, and sliding scale at home. ?? History of BPH (Z87.438):?? H/O Prostate Cancer s/p Radiation and Hormonal Therapy in 2012/2013: -Continue home Finasteride, Bethanechol, Tamsulosin ?? Hypotension (I95.9):?? - continue midodrine as needed. ?? Anemia (D64.9):?? - continue ferrous sulfate. -Hemoglobin was 6.6 in the morning, however on repeat it was 7.4 without any intervention. ? Patient hemodynamically stable, no further workup from nephrology standpoint, he will be dischargedhome. Patient in agreement with the discharge planning, and wants to be discharged as soon as possible. Objective Vital Signs?? Temperature: 98.1 DegF (08/15/23 07:44:00) Temperature Route: Temporal (08/15/23 07:44:00) Pulse Rate: 70 bpm (08/15/23 11:07:00) Respiratory Rate: 20 br/min (08/15/23 11:07:00) Systolic Blood Pressure: 99 mm Hg (08/15/23 11:07:00) Diastolic Blood Pressure: 70 mm Hg (08/15/23 11:07:00) Blood pressure sites: Arm, left (08/15/23 07:44:00) Mean Arterial Pressure: 80 mm Hg (08/15/23 07:44:00) Pulse Pressure: 29 mm Hg (08/15/23 07:44:00) Oxygen Saturation: 98 % (08/15/23 07:44:00) Mode of Delivery (Oxygen): Room air (08/15/23 07:44:00) Early Warning Score: 1 (08/15/23 11:10:04) ? . Physical Exam Constitutional: Alert, in no distress. Mental Status: Oriented to person, place and time. Head: Normocephalic. Neck: Supple, Full range of motion. Respiratory: Clear to auscultation. No wheezing, rales or rhonchi. Cardiovascular: S1 S2 regular. No murmurs, rubs or gallops. Gastrointestinal: Abdomen soft, non-tender, non-distended. Normal bowel sounds. No pulsatile mass. No hepatosplenomegaly. Genitourinary: No costovertebral angle tenderness. Neurologic: Cranial nerves II-XII grossly intact. No focal neurological deficits. Psychiatric: Normal mood and affect Pending Results Albumin Fluid ordered on 08/13/2023 Blood Culture ordered on 08/13/2023 Cell Count and Differential Fluid ordered on 08/13/2023 Complete Urinalysis ordered on 08/14/2023 Creatinine Urine ordered on 08/14/2023 Protein Fluid ordered on 08/13/2023 Sodium Urine ordered on 08/14/2023 Sterile Body Fluid Culture W/ Gram Smear ordered on 08/13/2023 Urea Nitrogen Urine ordered on 08/14/2023 Follow-Up Appointments Added Follow Up ?Time Frame ?Comments Roberto Carlos Arzola?1 to 2 weeks?to follow up with final blood culture Jez Faust MD?1 to 2 weeks Patient Instructions please follow up with nephrology and PCP outpatient you are supposed to take amoxicillin 1000 mg (2 pills) 3 times a day. Please be complaint with that.?? start bumetanide form 08/17/23 Home Health Face to Face *Denotes mandatory kramer ?? *I certify that this patient is under my care and that I or an allowed non- physician working with me had a face to face encounter with the patient on this date:??08/15/2023 11:45 ?? 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 *Select the indications for the discipline/s that are being arranged for this patient. Nursing (select all that apply): [_] None [_] Medication management (reconciliation, teaching)?? [X] Chronic disease management?? [_] Wound care and [...] apply): [_] None [_] Functional mobility training [X] Home exercise program to strengthen [_] Increase [...] Inability to ambulate without assistance [_] Pain [X] Decreased strength and endurance [_] Unsteady gait [_] Severe SOB and fatigue [_] Impaired transfers [_] Inability to negotiate stairs [_] Limited weight bearing [_] Mental status change? *Physician Signature:??Melissa Wilson ?? *By signing this, I certify that I have personally evaluated the patient and agree with the findings and recommendations as documented above. ? F 40??minutes spent on discharge ?? The note was dictated by using dragon. All grammatical and typographical errors were corrected to the best of my knowledge. Please do not hesitate to contact me with any questions. ?? Melissa Wilson MD Pager: [phone] ?? * Kerrie THORNE, Mary Aparicio: PERFORM Event Display: Patient Education/Instruction Authored Date: [id number] Inpatient Adult Discharge Instructions [place] [id number] Name: GILLES WRIGHT : 1945 Visit: 08/12/2023 22:46:00 Current Date: 08/15/2023 13:17 Account: [id number] Inpatient Adult Discharge Instructions We would like [...] and their families. Surveys are administered by [employer] ?? If further treatment with your primary care physician or another doctor is recommended, it is important for you to keep the appointment. Call your primary care physician or return to the Emergency Department immediately if your condition worsens, fails to improve, or new symptoms develop. If you need to find a doctor, you can call [facility] Link for a referral at [phone] or toll free at [phone]) or log in to [email or web address].. ?? [facility], in keeping with [facility] guidance, no longer requires face masks [...] a health care zoe of your choosing. [employer] is a website that allows you to securely view your medical information including your hospital discharge summary, office visit summaries, medications and follow-up visits. You can also request appointments, renew medications, and request access to your medical information using a health care zoe of your choosing, or just ask a question. You can enroll at [email or web address] or register during your next office visit. You have been discharged from [facility], Patient Care Unit: M7. If you have any questions regarding these instructions after you leave, please call us and we will be happy to assist you. [facility] Your Care Team Attending Physician Melissa Wilson MD Consulting Providers Jez Faust MD; Aurea ROONEY, Augustine Discharging Providers Melissa Wilson MD Reason for Admission FLUID OVERLOAD Your Diagnosis Fluid overload, unspecified Lower extremity edema Abdominal distension Weight gain Chronic kidney disease Elevated serum creatinine Hypotension Diabetes mellitus type 2, insulin Hyperlipidemia Liver cirrhosis CAD (coronary artery disease), LAD Bacteremia Infective endocarditis Status post transcatheter aortic valve replacement (TAVR) using bioprosthesis CHF (congestive heart failure) ANUJA on CPAP Status post placement of cardiac pacemaker Anemia History of BPH Tests Performed Below is a partial list of the tests performed during your hospitalization. You may have had other tests and procedures not included in this list. Please discuss all test results with your provider. B Type Natriuretic Peptide Basic Metabolic Panel BUN CBC CBC w/ Differential COMPLETE URINALYSIS Creatinine CREATININE, URINE MG/DL Electrolytes Folic Acid Level GLUCOSE POC H + H High??Sensitivity??Troponin T Hold Blue Top Tube INR LFT's SODIUM, URINE MMOL/L Troponin T, High Sensitivity Type and Screen UREA NITROGEN, URINE MG/DL Urinalysis Complete?-- Results Pending -- Urine Creatinine?-- Results Pending -- Urine Sodium?-- Results Pending -- Urine Urea Nitrogen?-- Results Pending -- Ultrasound Kidneys Comp US Abdominal Doppler Ltd US Ascites US Doppler Ext Lower Venous Bilat XR Ankle Min 3 Views Right XR Chest 2 Views Frontal and Lat You will be contacted within 72 hours with your results. Primary Care Provider Roberto Carlos Arzola Advance Directive Health Care Proxy on File Yes - Health Care Proxy Discharge Vitals Temperature: 98.1 DegF Height: 175 cm Pulse Rate: 70 bpm Weight: 82.8 kg Respiratory Rate: 20 br/min Body Mass Index:??28.41 kg/m2??High Systolic Blood Pressure: 99 mm Hg Body surface area: 2.06 Diastolic Blood Pressure: 70 mm Hg ?? Oxygen Saturation: 98 % ?? Studies Pending All tests and labs ordered during this hospital stay have been completed unless listed below. Please discuss all pending results with your provider listed above in these instructions. ?? Albumin Fluid Blood Culture Cell Count and Differential Fluid Complete Urinalysis (Urinalysis Complete) Creatinine Urine (Urine Creatinine) Protein Fluid Sodium Urine (Urine Sodium) Sterile Body Fluid Culture W/ Gram Smear (Culture Sterile Body Fluid w/ Gram Smear) Urea Nitrogen Urine (Urine Urea Nitrogen) What to do next Instructions From Your Doctor please follow up with nephrology and PCP outpatient you are supposed to take amoxicillin 1000 mg (2 pills) 3 times a day. Please be complaint with that.?? start bumetanide form 08/17/23 Discharge Orders Scheduled Follow-Up Appointments Thursday 11:40 AM EST ?? With: Harper ROONEY, Cole Culp Where: [facility] [address] [place] [address]- Status: Pending You Need to Schedule the Following Appointments Follow Up with??Blayne TAPIA, Roberto Carlos Núñez When:??Within 1 to 2 weeks Why: to follow up with final blood culture Where: [address] [place] [address]- Follow Up with??Christianne ROONEY, Jez When:??Within 1 to 2 weeks Where: [address], [address] [facility] [place] [address]- Discharge Medications GILLES WRIGHT :1945 Visit Date:08/12/2023 Medications: Please continue your medications until treatment is completed or stopped by your provider. Medications not listed below should be discontinued. Discuss any questions related to medications with your provider. What How Much When Instructions Next Dose New Bumetanide (bumetanide 1 mg oral tablet) 1 tab(s) Oral Daily Pickup at [facility] #[id number] tomorrow in am New Diclofenac Topical (diclofenac 1% topical gel) 4 gram Topically 4 times a day as needed for Pain , Moderate Pickup at [facility] #[id number] as you need Unchanged Alprazolam (ALPRAZolam 0.5 mg oral tablet) TAKE 1 TABLET BY MOUTH TWICE DAILY NEEDED FOR ANXIETY ?? as you need Unchanged Amoxicillin (amoxicillin 500 mg oral capsule) 2 capsule Oral 3 times a day Duration: 40 Days today at 4pm Unchanged Aspirin (aspirin 81 mg oral delayed release tablet) 1 tab(s) Oral Daily Do not start aspirin until 2021 ?? tomorrow in am Unchanged Atorvastatin (Lipitor 80 mg oral tablet) 1 tab(s) Oral Daily today at bedtime Unchanged Bethanechol (bethanechol 25 mg oral tablet) 1 tab(s) Oral Twice a day today at 9pm Unchanged Carvedilol (Coreg 6.25 mg oral tablet) 1 tab(s) Oral Twice a day Hold if systolic blood pressure is below 120 mmHg and/ or heart rate is below 55 [id number] ?? today at 9pm Unchanged Ceftriaxone (ceftriaxone 2 gm injectable powder for injection) 2 gram IV Piggyback Every 12 hours today at 7pm Unchanged Clopidogrel (clopidogrel 75 mg oral tablet) 1 tab(s) Oral Daily tomorrow in am Unchanged dapagliflozin (Farxiga 10 mg oral tablet) 1 tab(s) Oral Daily tomorrow in am Unchanged dulaglutide (Trulicity Pen 0.75 mg/ 0.5 mL subcutaneous solution) 0.5 Milliliter Subcutaneous Injection Every week EVERY THURSDAY ?? on , 2022 Unchanged Durable Medical Equipment (Blood Pressure Monitor) See instructions Blood pressure cuff ?? ICD: I10 ?? N/A Unchanged Ezetimibe (Zetia 10 mg oral tablet) 1 tab(s) Oral Daily tomorrow in am Unchanged Ferrous Sulfate (ferrous sulfate 325 mg oral enteric coated tablet) 1 tab(s) Oral Daily tomorrow in am Unchanged Finasteride (finasteride 5 mg oral tablet) 1 tab(s) Oral Daily tomorrow in am Unchanged Folic Acid (folic acid 0.8 mg oral tablet) TAKE 1 TABLET BY MOUTH EVERY DAY ?? tomorrow in am Unchanged Gabapentin (gabapentin 300 mg oral capsule) 1 capsule Oral Twice a day today at 9pm Unchanged Insulin Aspart (NovoLOG FlexTouch) See instructions 2-25 units Subcutaneous Injection 3 times a day before meals and bedtime ?? today before dinner Unchanged insulin degludec (Tresiba FlexTouch 200 units/ mL subcutaneous solution) INJECT 60 UNITS UNDER THE SKIN AT BEDTIME ?? today at bedtime Unchanged Lactulose (lactulose 10 gm/ 15 ml [...] systolic blood pressure above 110-120 mmHg ?? today at 4pm Unchanged Pantoprazole (pantoprazole 40 mg oral delayed release tablet) 1 tab(s) Oral Daily tomorrow in am Unchanged Tamsulosin (tamsulosin 0.4 mg oral capsule) 1 capsule Oral Daily (LAST FILLED ) ?? today at 9pm Pharmacy Information [facility] #[id number]: [address], [place] [id number] [phone] ?? What How Much When Comments Stop Taking penicillin G potassium (penicillin G potassium 3,000,000units/ 50 mL intravenous solution) 50 Milliliter IV Piggyback Every 6 hours Test Results Below is a partial list of the most recent Laboratory test results done prior to this discharge. You may have had other tests and procedures not included in this list. Please discuss all test resultswith your provider. Est Creatinine Clearance - 34.54 mL/min (08/15/2023) B Type Natriuretic Peptide (08/12/2023) ???Nt-Probnp - 583 pg/mL Basic Metabolic Panel (08/15/2023) ???Sodium - 138 mmol/L???Potassium - 4.3 mmol/L???Chloride - 105 mmol/L???Bicarbonate Level - 26 mmol/L???Anion Gap - 7???Glucose Level - 122 mg/dL???BUN - 49 mg/dL???Creatinine-Blood - 1.7 mg/dL???Estimated GFR Creatinine - 41 ML/MIN/1.73 M2???Calcium - 8.1 mg/dL BUN (08/14/2023) ???BUN - 45 mg/dL CBC (08/13/2023) ???WBC - 4.3 k/mm3???RBC - 2.88 m/mm3???Hgb - 7.5 Gm/dL???Hct - 24.8 %???MCV - 86.1 femtoliters???MCH - 26.0 pg???MCHC - 30.2 g/dL???Platelet Count - 121 k/mm3???RDW-SD - 53.0 femtoliters???MPV - 11.1 femtoliters???Nucleated RBC (Automated) - 0.0 #/100 WBC'S???Abs. NRBC - 0.0 k/mm3 CBC w/ Differential (08/12/2023) ???WBC - 4.8 k/mm3???RBC - 3.09 m/mm3???Hgb - 8.1 Gm/dL???Hct - 27.2 %???MCV - 88.0 femtoliters???MCH - 26.2 pg???MCHC - 29.8 g/dL???Platelet Count - 134 k/mm3???RDW-SD - 55.2 femtoliters???MPV - 11.1 femtoliters???Nucleated RBC (Automated) - 0.0 #/100 WBC'S???Abs. NRBC - 0.0 k/mm3???Abs. Neut - 3.7 k/mm3???Abs. Lymph - 0.4 k/mm3???Abs. Randolph - 0.6 k/mm3???Abs. Eo - 0.0 k/mm3???Abs. Baso - 0.0 k/mm3???Neut % - 77.1 %???Lymph % - 9.2 %???Randolph % - 11.7 %???Eos % - 0.8 %???Baso % - 0.8 %???Imm Gran- 0.4 %???Abs. Imm Gran - 0.0 k/mm3 COMPLETE URINALYSIS (08/14/2023) ???Appear/Color, Urine - LIGHT YELLOW???Specific [place], Urine - 1.010???pH, Urine - 6.5???Albumin, Urine - TRACE???Glucose, Urine - 2+???Ketones, Urine - NEGATIVE???Bilirubin, Urine - NEGATIVE???Hemoglobin, Urine - NEGATIVE???Nitrite, Urine - NEGATIVE???Leukocyte, Urine - NEGATIVE???Urobilinogen - NORMAL? ?WBC's, Urine - <1 /HPF? ?RBC's, Urine - 1 /HPF? ?Squamous Epith - <1 /HPF Creatinine (08/14/2023) ???Creatinine-Blood - 1.8 mg/dL???Estimated GFR Creatinine - 38 ML/MIN/1.73 M2 CREATININE, URINE MG/DL (08/14/2023) ???Creatinine, Urine Random - 27.6 mg/dL Electrolytes (08/14/2023) ???Sodium - 139 mmol/L???Potassium - 4.8 mmol/L???Chloride - 103 mmol/L???Bicarbonate Level - 26 mmol/L???Anion Gap - 10 Folic Acid Level (08/13/2023) ???Folic Acid Level - 21.1 ng/mL GLUCOSE POC (08/15/2023) ???Glucose, POC - 177 mg/dL H + H (08/15/2023) ???Hgb - 7.4 Gm/dL???Hct - 24.4 % High??Sensitivity??Troponin T (08/12/2023) ???High Sensitivity Troponin (HSTnT) - 44 ng/L Hold Blue Top Tube (08/12/2023) ???Hold Blue Top - SPECIMEN DISCARDED AFTER 4 HOURS. INR (08/13/2023) ???INR - 1.2???Protime (PT) - 12.8 seconds LFT's (08/13/2023) ???Protein, Total - 6.1 Gm/dL???Albumin - 3.3 Gm/dL???Alkaline Phosphatase - 161 units/L???AST (SGOT) - 25 units/L???ALT (SGPT) - 18 units/L???Bilirubin, Total - 0.5 mg/dL???Bilirubin, Direct - 0.2 mg/dL???Bilirubin, Indirect - 0.3 mg/dL SODIUM, URINE MMOL/L (08/14/2023) ???Sodium, Urine Random - 70 mmol/L Troponin T, High Sensitivity (08/13/2023) ???High Sensitivity Troponin (HSTnT) - 41 ng/L Type and Screen (08/15/2023) ???Blood Type - A Positive???Antibody Screen - Negative UREA NITROGEN, URINE MG/DL (08/14/2023) ???Urea Nitrogen, Urine Random - 280.4 mg/dL Allergies (NKA means No Known Allergies) Latex??(Rash) [...] Educational Leaflet Providered with your Discharge Instructions. Diclofenac Topical Gel?? Amoxicillin Oral Capsule?? Clopidogrel Oral Tablet?? Carvedilol Oral Tablet?? Bumetanide Oral Tablet?? Anemia, Type Not Specified (Adult)?? Treating Cirrhosis?? Cirrhosis?? Heart Failure: Tracking Your Weight?? Discharge Instructions for Heart Failure?? Treatment for Infective Endocarditis?? Understanding Infective Endocarditis?? Heart Failure: Making Changes to Your Diet?? Valuables and Belongings I fully understand and agree that [facility] accepts no responsibility for all my personal [...] patient Date for Pt to Sign Valuables/Belongings: 08/13/23 14:44:00 ?? Other Discharge Information ? Case Management Discharge Plan?? Discharge Plan?? Discharge Agency Information?? Discharge Level of Care at Discharge: Home/Usp/Foster Care Name of Agency #1: [facility]Home Care: [facility] [phone] Agency Surgical Tech #1: Intake ?? Service Categories #1: Physical Therapy, Usp ?? Service Comments #1: A nurse will call you to arrange a visit with you at your home. If you do not hear from agency, please call them. ?? Service Categories #2: Home IV antibiotics ?? Pulmonary Rehab Status?? Pulmonary Rehab Discharge Status?? Respiratory Rate: 20 br/min ? Common Emergency Awareness Tips IS [...] are strongly encouraged to quit. Please call [facility] [employer] [facility] at [phone] or [phone] [facility] ([phone]) or log in to [email or web address] for referrals to smoking cessation programs. ?? 231 Suicide & Crisis Lifeline is available 06/04 if you or someone you know needs to find a reason to keep living. By calling 816 you'll be connected to a skilled, trained counselor at a crisis center in your area. INPATIENT DISCHARGE INSTRUCTIONS SIGNATURE PAGE GILLES WRIGHT Location:[facility] Registration Date and Time:08/12/2023 22:46 EST Primary Care Physician: Roberto Carlos Arzola, Attending Physician: Melissa Wilson MD, I GILLES WRIGHT, have received the above patient education materials/instructions and have verbalized understanding. If ambulance or transport services are being used I further acknowledge being given a choice of service. ?? If you need to contact me, please call me at this number: . Patient/Ring Striker Name: Patient/Ring Striker Signature: Relationship to Patient: Witness Name/Signature: Date: * Kerrie THORNE, Mary Aparicio: PERFORM Event Display: Patient Education Leaflets Authored Date: [id number] Central Line Infections ?? [address]2544 Central Line Infections You need a central line as part of your treatment. It???s also called a central venous access device (CVAD) or central venous catheter (CVC). A small, soft tube called a catheter is put in a vein that leads to your heart. The central line is used instead of a standard IV (intravenous) line. It doesnot need to be replaced as often as a standard IV. This means less pain and fewer needlesticks during treatment. But central lines come with a risk of infection. This sheet tells you more about central line infections and what hospitals are doing to prevent them. And it explains how an infection istreated if one occurs. Types of central lines With a central line, a catheter is inserted into your body through a vein that leads to the large vein near the heart (vena cava). Types of central lines and their risk of infection are listed below.Which type is best for you depends on your needs and your overall health. Your healthcare provider will talk with you which type of line you need, and why. ??? Peripherally inserted central catheter (PICC).??This is placed in a large vein in the upper arm, or near the bend of the elbow. ??? Subclavian line. This??is placed in a vein that runs behind the collarbone. ??? Internal jugular line.??This is placed in a large vein in the neck. Infection risk is higher than with a PICC or subclavian line, but lower than with a femoral line. ??? Femoral line.??This may be placed in a large vein in the groin. This site is generally not used??because of an increased risk for infection.? Tunneled catheter. This is run through the soft tissue under the skin before it enters a vein. A small cuff helps hold the catheter in place. Both the tunnel and the cuff help lower your chances for infection. This type of catheter may be placed in any of the above locations. ??? Port. This small device is placed completely under the skin on the arm or chest. It???s connected to a catheter that is threaded into the vena cava. ?? Types of infections A central line provides a direct path into your bloodstream. This gives germs possible access into your body. All types of central lines are associated with some risk of infection. Often, the germs that cause a central line infection come from your own skin. There are two possible types of infection: ??? Local infection. This can occur where the central line enters your body. Symptoms include redness, pain, or swelling at or near the catheter site. This is the area where the catheter enters your body. You may also have pain or tenderness along the path of the catheter, and drainage from the skin around the catheter. ??? Systemic infection (also called bacteremia). This can occur if germs get into the bloodstream. This is very serious and can be fatal. Symptoms include sudden fever, shaking chills, a racing heartbeat, confusion, changes in behavior, and a skin rash. ?? Risk factors for infection Anyone who has a central line can get an infection. Your risk is higher if you: ??? Are in the intensive care unit (ICU) ??? Have a weak immune system or serious illness ??? Are getting bone marrow or chemotherapy ??? Have the line in for an extended time ??? Have a central line in your neck or groin ??? Have the catheter used often to draw blood or give you medicines ?? How central line infections are treated Treatment depends on the type of central line placed, how severe the infection is, and your overallhealth. Your healthcare provider will prescribe antibiotics to fight the infection. The line may also need to be removed. In some cases, the line may be flushed with high doses of antibiotics. This may kill the germs causing the infection, so the line doesn???t have to be removed. ?? What hospitals do to prevent infection Hospitals have a plan to reduce central line infections. This plan includes: ??? Using good hand hygiene. Hospital staff clean their hands before and after touching the line. They wash their hands with soap and water. Or they use an alcohol-based hand para professional containing at least 60% alcohol. ??? Using sterile practices during placement. The healthcare provider who places the line wears germ-free (sterile) clothing including a long-sleeved gown, a mask, hat, and gloves. Before the line is placed, your skin is cleaned with an antiseptic solution. During placement, you are fully covered with alarge sterile sheet (a sterile drape). Only the spot where the line is being placed is exposed. After placement, the site where the line enters the body is covered with a sterile bandage (dressing). Whenever the dressing is soiled or loose, they change it right away. ??? Choosing a lower-risk vein.Whenever possible, the line is placed in a vein that's right for your treatment and has the lowest infection risk. Some hospitals use lines coated with an antimicrobial substance to reduce the chanceof infection. An antibiotic patch may also be placed over the line. ??? Limiting how often blood isdrawn from your central line. Each time your line is used, the risk for infection increases. ??? Scrubbing the cap (hub) of your catheter vigorously with an antiseptic, such as a 70% alcohol swab, before each use. ??? Checking for infection. The line is checked often for infection. It's removed as soon as you no longer need it. ??? Cleaning your body every day with a soap called chlorhexidine gluconate (CHG). This soap helps reduce the risk for infection. ?? What you can do to prevent infection Good handwashing helps prevent central line infections. Before you get a central line, ask questions. Find out why you need the line and where it will be placed. Learn what steps the hospital is taking to reduce your infection risk. Once the line has beenplaced, you, your caregivers, and any visitors can help prevent infection by doing the following: ??? Use good hand hygiene. Wash your hands often with soap and clean, running water (warm or cold), and use alcohol-based hand para professional with at least 60% alcohol as directed. To clean your hands well,follow the guidelines on this sheet. Visitors should wash their hands well when they arrive and when they leave. ??? Make sure healthcare staff and your visitors clean their hands. They should use soap and clean, running water or an alcohol-based hand para professional before and after checking the line. Don???t be afraid to remind them. ??? Follow your hospital team's personal hygiene instructions. Thismay include bathing every day with CHG soap. ??? Talk with your healthcare team about how often your line needs to be used for drawing blood. If possible, have them draw blood from lower risk veins in your arm. ??? Keep the line dry. Follow your healthcare provider???s guidelines for bathing. If the dressing does get wet, tell your healthcare provider right away. ??? Limit touching your line. Even when your hands are clean, try not to touch the catheter or dressing. Remind visitors not to touch your line. ??? Learn the sterile dressing technique. This is important if you will be caring for the line at home. Your healthcare team will show you how to use sterile method to change your dressing. Tell your healthcare team if the dressing or area around it gets wet, dirty, or if the bandage is loose. ??? At home, follow all instructions from your healthcare team about how to care for your line and dressing. Change your dressing right away if it's loose or gets dirty. ?? Risk for blood clot If a blood clot forms, it can block blood flow through the vein where the catheter is placed. Signsof a blood clot include pain or swelling in the neck, face, chest, or arm. If you have any of thesesymptoms, call your healthcare provider right away. You may need an ultrasound exam to locate the blood clot and receive treatment. ?? Handwashing To protect the central line from germs, it???s very important to wash your hands often and clean them well. You and anyone who comes in contact with you should follow these steps: ??? Wet your hands with clean, running water (cold or warm). Don't use hot water. It can cause skinirritation when you wash your hands often. ??? Apply enough soap to cover the entire surface of your hands, including your fingers. ??? Rub your hands together briskly for at least 20 seconds. Make sure to rub the front and back of each hand up to the wrist, your fingers and fingernails, between the fingers, and each thumb. ??? Rinse your hands with clean, running water. ??? Dry your hands completely with a new, unused paper towel. Don???t use a cloth towel or other reusable towel. These can harbor germs. ??? Use the paper towel to turn off the faucet, then throw it away. If you???re in a bath room, also use a paper towel to open the door instead of touching the handle. When you can't use soap and water, alcohol-based hand sanitizers are a good choice for cleaning your hands. The para professional should have at least 60% alcohol. Note that some germs can't be killed by alcohol. Your healthcare team can answer any questions you have about when to use a hand para professional, or when it???s better to wash with soap and water. Follow these steps: ??? Spread the hand para professional inthe palm of one hand. (Check the package for specific guidelines.) ??? Rub your hands together briskly. Clean the backs of your hands, the palms, between your fingers, and up your wrists. ??? Rub until the para professional is gone and your hands are completely dry. ?? When to seek medical care Call your healthcare provider right away if you have a central line and develop any of the following: ??? Pain or burning in your shoulder, chest, back, arm, or leg ??? Fever of 100.4?? F ( 38??C) orhigher, or as advised by your healthcare provider ??? Chills ??? Pain, redness, drainage, burning, or stinging at the catheter site ??? Coughing, wheezing, or shortness of breath ??? A racing or irregular heartbeat ??? Muscle stiffness or trouble moving ??? Gurgling noises coming from the catheter ??? Catheter falling out, breaking, cracking, leaking, or other damage ??? Bleeding from the catheter or where it enters the skin ?? Last Reviewed Date: 2023 ?? [id number] [employer]. All rights reserved. This information is not intended as a substitute for professional medical care. Always follow your healthcare professional's instructions. ?? * Kerrie THORNE, Mary Browning.: PERFORM Event Display: Patient Education Leaflets Authored Date: [id number] Central Line Infections ?? 80471 Central Line Infections You need a central line as part of your treatment. It???s also called a central venous access device (CVAD) or central venous catheter (CVC). A small, soft tube called a catheter is put in a vein that leads to your heart. The central line is used instead of a standard IV (intravenous) line. It doesnot need to be replaced as often as a standard IV. This means less pain and fewer needlesticks during treatment. But central lines come with a risk of infection. This sheet tells you more about central line infections and what hospitals are doing to prevent them. And it explains how an infection istreated if one occurs. Types of central lines With a central line, a catheter is inserted into your body through a vein that leads to the large vein near the heart (vena cava). Types of central lines and their risk of infection are listed below.Which type is best for you depends on your needs and your overall health. Your healthcare provider will talk with you which type of line you need, and why. ??? Peripherally inserted central catheter (PICC).??This is placed in a large vein in the upper arm, or near the bend of the elbow. ??? Subclavian line. This??is placed in a vein that runs behind the collarbone. ??? Internal jugular line.??This is placed in a large vein in the neck. Infection risk is higher than with a PICC or subclavian line, but lower than with a femoral line. ??? Femoral line.??This may be placed in a large vein in the groin. This site is generally not used??because of an increased risk for infection.? Tunneled catheter. This is run through the soft tissue under the skin before it enters a vein. A small cuff helps hold the catheter in place. Both the tunnel and the cuff help lower your chances for infection. This type of catheter may be placed in any of the above locations. ??? Port. This small device is placed completely under the skin on the arm or chest. It???s connected to a catheter that is threaded into the vena cava. ?? Types of infections A central line provides a direct path into your bloodstream. This gives germs possible access into your body. All types of central lines are associated with some risk of infection. Often, the germs that cause a central line infection come from your own skin. There are two possible types of infection: ??? Local infection. This can occur where the central line enters your body. Symptoms include redness, pain, or swelling at or near the catheter site. This is the area where the catheter enters your body. You may also have pain or tenderness along the path of the catheter, and drainage from the skin around the catheter. ??? Systemic infection (also called bacteremia). This can occur if germs get into the bloodstream. This is very serious and can be fatal. Symptoms include sudden fever, shaking chills, a racing heartbeat, confusion, changes in behavior, and a skin rash. ?? Risk factors for infection Anyone who has a central line can get an infection. Your risk is higher if you: ??? Are in the intensive care unit (ICU) ??? Have a weak immune system or serious illness ??? Are getting bone marrow or chemotherapy ??? Have the line in for an extended time ??? Have a central line in your neck or groin ??? Have the catheter used often to draw blood or give you medicines ?? How central line infections are treated Treatment depends on the type of central line placed, how severe the infection is, and your overallhealth. Your healthcare provider will prescribe antibiotics to fight the infection. The line may also need to be removed. In some cases, the line may be flushed with high doses of antibiotics. This may kill the germs causing the infection, so the line doesn???t have to be removed. ?? What hospitals do to prevent infection Hospitals have a plan to reduce central line infections. This plan includes: ??? Using good hand hygiene. Hospital staff clean their hands before and after touching the line. They wash their hands with soap and water. Or they use an alcohol-based hand para professional containing at least 60% alcohol. ??? Using sterile practices during placement. The healthcare provider who places the line wears germ-free (sterile) clothing including a long-sleeved gown, a mask, hat, and gloves. Before the line is placed, your skin is cleaned with an antiseptic solution. During placement, you are fully covered with alarge sterile sheet (a sterile drape). Only the spot where the line is being placed is exposed. After placement, the site where the line enters the body is covered with a sterile bandage (dressing). Whenever the dressing is soiled or loose, they change it right away. ??? Choosing a lower-risk vein.Whenever possible, the line is placed in a vein that's right for your treatment and has the lowest infection risk. Some hospitals use lines coated with an antimicrobial substance to reduce the chanceof infection. An antibiotic patch may also be placed over the line. ??? Limiting how often blood isdrawn from your central line. Each time your line is used, the risk for infection increases. ??? Scrubbing the cap (hub) of your catheter vigorously with an antiseptic, such as a 70% alcohol swab, before each use. ??? Checking for infection. The line is checked often for infection. It's removed as soon as you no longer need it. ??? Cleaning your body every day with a soap called chlorhexidine gluconate (CHG). This soap helps reduce the risk for infection. ?? What you can do to prevent infection Good handwashing helps prevent central line infections. Before you get a central line, ask questions. Find out why you need the line and where it will be placed. Learn what steps the hospital is taking to reduce your infection risk. Once the line has beenplaced, you, your caregivers, and any visitors can help prevent infection by doing the following: ??? Use good hand hygiene. Wash your hands often with soap and clean, running water (warm or cold), and use alcohol-based hand para professional with at least 60% alcohol as directed. To clean your hands well,follow the guidelines on this sheet. Visitors should wash their hands well when they arrive and when they leave. ??? Make sure healthcare staff and your visitors clean their hands. They should use soap and clean, running water or an alcohol-based hand para professional before and after checking the line. Don???t be afraid to remind them. ??? Follow your hospital team's personal hygiene instructions. Thismay include bathing every day with CHG soap. ??? Talk with your healthcare team about how often your line needs to be used for drawing blood. If possible, have them draw blood from lower risk veins in your arm. ??? Keep the line dry. Follow your healthcare provider???s guidelines for bathing. If the dressing does get wet, tell your healthcare provider right away. ??? Limit touching your line. Even when your hands are clean, try not to touch the catheter or dressing. Remind visitors not to touch your line. ??? Learn the sterile dressing technique. This is important if you will be caring for the line at home. Your healthcare team will show you how to use sterile method to change your dressing. Tell your healthcare team if the dressing or area around it gets wet, dirty, or if the bandage is loose. ??? At home, follow all instructions from your healthcare team about how to care for your line and dressing. Change your dressing right away if it's loose or gets dirty. ?? Risk for blood clot If a blood clot forms, it can block blood flow through the vein where the catheter is placed. Signsof a blood clot include pain or swelling in the neck, face, chest, or arm. If you have any of thesesymptoms, call your healthcare provider right away. You may need an ultrasound exam to locate the blood clot and receive treatment. ?? Handwashing To protect the central line from germs, it???s very important to wash your hands often and clean them well. You and anyone who comes in contact with you should follow these steps: ??? Wet your hands with clean, running water (cold or warm). Don't use hot water. It can cause skinirritation when you wash your hands often. ??? Apply enough soap to cover the entire surface of your hands, including your fingers. ??? Rub your hands together briskly for at least 20 seconds. Make sure to rub the front and back of each hand up to the wrist, your fingers and fingernails, between the fingers, and each thumb. ??? Rinse your hands with clean, running water. ??? Dry your hands completely with a new, unused paper towel. Don???t use a cloth towel or other reusable towel. These can harbor germs. ??? Use the paper towel to turn off the faucet, then throw it away. If you???re in a bath room, also use a paper towel to open the door instead of touching the handle. When you can't use soap and water, alcohol-based hand sanitizers are a good choice for cleaning your hands. The para professional should have at least 60% alcohol. Note that some germs can't be killed by alcohol. Your healthcare team can answer any questions you have about when to use a hand para professional, or when it???s better to wash with soap and water. Follow these steps: ??? Spread the hand para professional inthe palm of one hand. (Check the package for specific guidelines.) ??? Rub your hands together briskly. Clean the backs of your hands, the palms, between your fingers, and up your wrists. ??? Rub until the para professional is gone and your hands are completely dry. ?? When to seek medical care Call your healthcare provider right away if you have a central line and develop any of the following: ??? Pain or burning in your shoulder, chest, back, arm, or leg ??? Fever of 100.4?? F ( 38??C) orhigher, or as advised by your healthcare provider ??? Chills ??? Pain, redness, drainage, burning, or stinging at the catheter site ??? Coughing, wheezing, or shortness of breath ??? A racing or irregular heartbeat ??? Muscle stiffness or trouble moving ??? Gurgling noises coming from the catheter ??? Catheter falling out, breaking, cracking, leaking, or other damage ??? Bleeding from the catheter or where it enters the skin ?? Last Reviewed Date: 2023 ?? [employer]. All rights reserved. This information is not intended as a substitute for professional medical care. Always follow your healthcare professional's instructions. ?? * Kerrie THORNE, Mary Aparicio: PERFORM Event Display: Patient Education Leaflets Authored Date: [id number] Discharge Instructions: Changing the Dressing on Your Peripherally Inserted Central Catheter (PICC) ?? [address] Discharge Instructions: Changing the Dressing on Your Peripherally Inserted Central Catheter (PICC) You are going home with a peripherally inserted central catheter (PICC). This small, soft tube has been placed in a vein in your arm. Where the catheter enters your body, it???s covered with a bandage (dressing). The bandage is often made of clear (transparent) plastic. This helps keep the area free of germs. To prevent infection, you need to keep the dressing clean and dry.??Only??change the dressing if you or a caregiver have been told to do so. This sheet explains the process. Also follow any specific directions you get from your healthcare provider. Prevent infection with good hand hygiene A PICC can let germs into your body. This can lead to serious and sometimes deadly infections. To prevent infection, it???s very important that you, your caregivers, and others around you use good hand hygiene. This means washing your hands well with soap and water, and cleaning them with an alcohol-based hand gel as directed. Never touch the PICC or dressing without first using one of these methods. To wash your hands with soap and water: ??? Wet your hands with clean, running water. (Don't use hot water. It can cause skin irritation when you wash your hands often.) ??? Apply enough soap to cover the whole surface of your hands, including your fingers. ??? Rub your hands together vigorously for at least 20 seconds. Make sure to rub the front and back of each hand up to the wrist, your fingers and fingernails, between the fingers, and each thumb. ??? Rinse your hands with clean, running water. ??? Dry your hands completely with anew, unused paper towel. Don???t use a cloth towel or other reusable towel. These can harbor germs.??? Use the paper towel to turn off the faucet, then throw it away. If you???re in a bathroom, alsouse a paper towel to open the door instead of touching the handle. When you don???t have access to soap and water: Use an alcohol-based hand gel to clean your hands. The gel should have at least 60% alcohol. Follow the directions on the package. Your healthcare teamcan answer any questions you have about when to use hand gel, or when it???s better to wash with soap and water. ?? When to change the dressing ??? If you have a clear dressing, change it every 7 days (or more oftenif directed). ??? If you have a gauze dressing, change it every 2 days. This includes gauze under aclear (transparent) dressing. ??? If the dressing becomes loose, dirty, or wet, change it right away. Report this to your healthcare provider as soon as possible. Dressings will need to be changed more often if you have been sweating, as with a fever. ?? Preventing infection while changing the dressing The PICC provides a direct path into your bloodstream. The chance of infection is high as you change the dressing. Don???t touch the catheter where it enters the skin. And be very careful to keep your work area and supplies clean. Following the steps on this sheet will help. Keep in mind that some supplies come in germ-free (sterile) packaging. Make sure to keep these sterile during the dressing change. ?? Supplies for changing the dressing A general list of supplies is below. Your healthcare team will provide you with a list of specific items and brands to use. Or you may get a kit that has everything you need. Your supplies may include: ??? Gauze dressing ??? Transparent dressing ??? Antimicrobial sponge disk ??? Antiseptic supplies to clean the skin and around the catheter exit site (such as chlorhexidine plus alcohol) ??? Sterile gloves ??? Nonsterile gloves and a mask ??? Medical tape, adhesive strips, or a securement device Before you start, review the steps below and make sure you understand them. If you???re not sure what to do or how to use your supplies, ask a member of your healthcare team before you try to change the dressing. Note: Since the PICC is in your arm, you???ll only have one free arm during the dressing change. This makes it very hard to change the dressing yourself. Have someone available to help you. Step 1. Wash your hands Wash your hands well with soap and water. Use the method described above. Step 2. Prepare your work area ??? Choose an area with a hard, flat surface where you can easily spread out the supplies, such as a desk or table. Don???t use the bathroom; there are too many germs. ??? Put pets and children out of the work area. Keep them out until the dressing change is done. ??? Clean washable surfaces with soap and water. Dry with a clean, unused paper towel. Then throw the paper towel away. ??? Spread clean, unused paper towels over your work surface. Use as many as you need to cover it. ??? If you needto cough or sneeze, move away from your work surface first.?? Step 3. Lay out your supplies ??? Clean your hands with soap and water or hand gel. Do this before you lay out your supplies on the work surface. ??? After cleaning your hands, only touch your supplies. If you do touch anything else, such as furniture or your clothes, wash your hands again. This is very important for preventinginfection. ??? Place your supplies on the cleaned and dried work surface. Lay them out in the orderyou will be using them. ??? If you???re using a kit with a sterile tray, take off the plastic covering. Remove the covering only. Don???t open the tray. Keep the plastic covering. You can use it to dispose of the old dressing. Step 4. Remove the old dressing ??? Put on clean gloves and a mask. Anyone who is helping you change the dressing should do this, too. (Don???t use sterile gloves for this step. Sterile gloves are used in Step 5.) ??? Take off the old dressing by gently pulling the edges. Carefully peel off the dressing in the direction of the catheter site. While doing this, hold the end of the catheter (lumen) so it doesn???t pull out of yourbody. ??? If a securement device is in place, carefully remove it using the method your nurse showed you. ??? Check the catheter site for signs of infection, such as redness, swelling, drainage, or gabrielle odor. If you notice any, call your healthcare team when you???re finished changing the dressing. ??? Wrap the old dressing in plastic (if available) and put it aside. Step 5. Prepare sterile supplies ??? Remove your gloves and clean your hands with hand gel. You should still be wearing the mask.? Open any sterile supplies, such as the transparent dressing and sterile gloves. Follow the directions on the package or your healthcare team???s directions. ??? Put on sterile gloves. Follow the directions on the package or as you were shown in the hospital. Step 6. Clean the catheter site ??? If the skin under the dressing has dried blood or a lot of drainage, clean it as directed by your healthcare team. ??? Clean the catheter exit site using the antiseptic supplies your healthcare team recommends. It???s very important to follow the package directions and your provider???s directions exactly. Step 7. Apply the new dressing ??? If you???re using a securement device, apply it as you were shown. This may be skipped if you have stitches holding the PICC in place. (Be sure to report any loose stitches to your healthcare provider.) ??? If you???re using a gauze dressing, apply it over the catheter exit site the way your nurse showed you. ??? If you???re using an antimicrobial sponge disk, place it around the catheter with the correct side touching your skin. Line up the slit on the spongedisk with the catheter. ??? Apply the transparent dressing over the catheter exit site and over thegauze or sponge disk (if used). Put the top end down first. Then smooth out the rest across the area where the catheter exits your skin. Make sure the dressing covers the entire catheter. ??? Take off and discard the sterile gloves and mask. ??? Tape the end of the catheter (lumen) to your skin, asdirected by your healthcare provider. ??? Throw away the old dressing and used supplies. ??? Wash your hands. ?? Changing the injection caps The catheter???s injection caps need to be changed every 3 to 7 days. This is often done at the same time as the dressing change. Your healthcare provider will give you directions. ?? Risk of blood clot If a blood clot forms, it can block blood flow through the vein where the catheter was placed. Signs of a blood clot include pain or swelling in your neck, face, chest, or arm. If you have any of these symptoms, call your healthcare provider right away. You may need an ultrasound exam to locate the blood clot and be treated with a blood thinner. ?? When to seek medical care Call your healthcare provider right away if any of the following occur: ??? Pain or swelling in your shoulder, chest, back, arm, or leg ??? Fever of 100.4?? F ( 38.0??C ) or higher ??? Chills ??? Signs of infection at the catheter site (pain, redness, drainage, burning, or stinging) ??? Coughing, wheezing, or shortness of breath ??? A racing or irregular heartbeat ??? Muscle stiffness or trouble moving ??? Gurgling noises coming from the catheter ??? The catheter falls out, breaks, cracks, leaks, or has other damage ?? Last Reviewed Date: 2022 ?? [id number] [employer]. All rights reserved. This information is not intended as a substitute for professional medical care. Always follow your healthcare professional's instructions. ?? * Event Display: Provider Clarification Note Please click on pdf link to open report * Event Display: Provider Clarification Note Please click on pdf link to open report Patient Care team information Care Team Personnel Name: Steff Puentes RN Position: [facility] RN Member Role: Primary Care Nurse Name: Kalyani Miller LPN Position: [facility] RN Member Role: Primary Care Nurse Name: Nadiya Coleman RN Position: [facility] RN Member Role: Primary Care Nurse Name: Tripp Machado RN Position: [facility] RN Member Role: Primary Care Nurse Name: Sobia Hilliard RN Position: [facility] RN Supv Member Role: Primary Care Nurse Name: Lupe Díaz RN Position: [facility] RN Member Role: Primary Care Nurse Name: Betsy Solano RN Position: [facility] RN Member Role: Primary Care Nurse Name: Andrew Burks RN Position: [facility] RN Member Role: Primary Care Nurse Name: Lorraine Araujo RN Position: [facility] RN Member Role: Primary Care Nurse Name: Adryan Rm RN Position: [facility] RN Member Role: Primary Care Nurse Name: Roberto Carlos Arzola Position: Reference Physician Member Role: PCP Address: Address: [address] [place] [address] [address] [place] [address]- [place] Name: Sher Sandoval RN Position: [facility] RN Member Role: Primary Care Nurse Name: Fely Gaspar Position: [facility] RN Member Role: Primary Care Nurse Name: Tonya Up RN Position: [facility] RN Member Role: Primary Care Nurse Name: Meli Luz LPN Position: [facility] RN Member Role: Primary Care Nurse Name: Matheus Cleveland RN Position: [facility] RN Member Role: Primary Care Nurse Name: Karolina Barcenas RN Position: [facility] RN Member Role: Primary Care Nurse Name: Mercedes Maki Position: [facility] RN Member Role: Primary Care Nurse Name: Edna Horner RN Position: [facility] RN Member Role: Primary Care Nurse Name: Aguila Acevedo LPN Position: [facility] RN Member Role: Primary Care Nurse Name: Les Sahu MD Position: [facility] Renal MD Member Role: Lifetime Consulting Physician Address: Address: [address] [place] [address] [address] [facility], [place] [address]- [place] Name: Gabby Ma RN Position: [facility] SN RN Member Role: Primary Care Nurse Name: Nadia Lainez RN Position: [facility] RN Member Role: Primary Care Nurse Name: Yohannes Watson RN Position: [facility] RN Member Role: Primary Care Nurse Name: Huyen Griffin RN Position: [facility] RN Member Role: Primary Care Nurse Name: Omer Moreno MD Position: [facility] Renal MD Member Role: Lifetime Consulting Physician Address: Address: [address] [place] [address] [facility] [address] Name: Staci Salgado LPN Position: [facility] RN Member Role: Primary Care Nurse Name: Kanwal Ta RN Position: [facility] RN Member Role: Primary Care Nurse Name: Zo Vivar RN Position: [facility] RN Member Role: Primary Care Nurse Name: Anh Batista RN Position: [facility] RN Member Role: Primary Care Nurse Name: Elmira GUZMAN Attending Position: [facility] ED Medicine MD Name: Sarah Lozada LPN Position: [facility] ED RN W/OE and Tasks Member Role: Patient Care Provider Name: Bailey Frances Position: [facility] ED TA [facility] Member Role: Electrostatic Painter Care Team Related Persons Name: DES WRIGHT Address: home [address] [place] [address] Name: GISELA WRIGHT Address: [place] [address]
--- OUTSIDE RECORDS SUMMARY | 2024-04-15 20:05 | XMS_ITS | Continuity of Care Document ---
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 Start Date: 02/07/23 Status: Ordered aspirin 81 mg oral delayed release tablet 81 mg, 1, tablet, By Mouth, Daily, Do not start aspirin until 06/16/2022, # 90 tablet, Refills 0, Tot. Refills 0, Maintenance, 02/07/23 12:28:00 EDT, Route to Pharmacy Electronically, [facility] #[id number], Partial fill upon patient request if t... [...] mmHg and/or heart rate is below 55 [id number], # 180 tablet, Refills 0, Tot. Refills 0, Maintenance, 02/07/23 12:29:00 EDT, Route to Pharmacy Electronically... Start Date: 02/07/23 Status: Ordered Farxiga 10 mg oral tablet 1 tablet = 10 mg, By Mouth, Daily, # 90 tablet, 0 Refills, Maintenance, 02/07/23 12:33:00 EDT, Tablet, [facility] #[id number], Partial fill upon patient request if the prescription is for a schedule II opioid drug., 175, cm, 02/07/23 12:05:00 EDT... Start Date: 02/07/23 Status: Ordered ferrous sulfate 325 mg oral enteric coated tablet 325 mg, 1, tablet, By Mouth, Daily, # 90 tablet, Refills 0, Tot. Refills 0, Maintenance, 02/07/23 12:36:00 EDT, Route to Pharmacy Electronically, [facility] #[id number], Partial fill upon patient request if the prescription is for a schedule II o... Start Date: 02/07/23 Status: Ordered finasteride 5 mg oral tablet 1 tablet = 5 mg, By Mouth, Daily, # 90 tablet, 0 Refills, Maintenance, 02/07/23 12:28:00 EDT, Tablet, [facility] #[id number], Partial fill upon patient request if the [...] 02/07/23 12:31:00 EDT, Route to Pharmacy Electronically, [facility] #[id number], Partial fill... Start Date: 02/07/23 Status: Ordered lidocaine 5% topical film 1 patch, Topically, Daily, Apply to back of the neck tender point, 12 hours on then 12 hours off., # 30 patch, 0 Refills, Maintenance, 02/07/23 12:30:00 EDT, Patch, [facility] #[id number], Partial fill upon patient request if the prescription is... Start Date: 02/07/23 Status: Ordered Lipitor 80 mg oral tablet 1 tablet = 80 mg, By Mouth, Daily, # 90 tablet, 0 Refills, Maintenance, 02/07/23 12:28:00 EDT, Tablet, [facility] #[id number], 175, cm, 02/07/23 12:05:00 EDT, Height, 94, kg, 01/23/23 9:15:00 EDT, Dry Weight Start Date: 02/07/23 Status: Ordered midodrine 10 mg oral tablet 1 tablet = 10 mg, By Mouth, 3 times a day, To help maintain systolic blood pressure above 110-120 mmHg, # 90 tablet, 2 Refills, Maintenance, 02/07/23 12:33:00 EDT, Tablet, [facility] #[id number], Partial fill upon patient request if the prescript... Start Date: 02/07/23 Status: Ordered Narcan 4 mg/0.1 mL nasal spray = 4 mg, Nares, Both, Once, PRN Other, To reverse opioid overdose, administer to each nostril, may repeat every 2 to 3 minutes until patient responds, call 911 in the meantime., # 2 each, 0 Refills, Soft Stop, 02/07/23 12:41:00 EDT, [facility]... Start Date: 02/07/23 Status: Ordered NovoLOG [...] 02/07/23 12:29:00 EDT, Route to Pharmacy Electronically, [facility] #[id number],Partial fill upon patient request if the prescripti... [...] 0 Refills, Maintenance, 02/07/23 12:33:00 EDT, Tablet, [facility] #[id number], Partial fill upon patient request if the [...] February 2013. Urologist is Dr. Zafar Roa [facility] ). Social History Social History Type [...] Care Nurse Name: Lorraine Araujo RN Position: [facility] AMB Nurse Member Role: Primary Care Nurse Name: Adryan Rm RN Position: [facility] RN Member Role: Primary Care Nurse Name: Peg Trinidad RN Position: [facility] RN Member Role: Primary Care Nurse Name: Fely Gaspar Position: [facility] RN Member Role: Primary Care Nurse Name: Meli Luz LPN Position: [facility] RN Member Role: Primary Care Nurse Name: Matheus Cleveland RN Position: [facility] RN Member Role: Primary Care Nurse Name: Mercedes Maki Position: [facility] RN Member Role: Primary Care Nurse Name: Les Sahu MD Position: [facility] Renal MD Member Role: Lifetime Consulting Physician Address: Address: [address] [facility] [facility] [place], [place] [address]- Name: Gabby Ma RN Position: [facility] SN RN Member Role: Primary Care Nurse Name: Huyen Griffin Position: [facility] RN Member Role: Primary Care Nurse Name: Zo Vivar RN Position: [facility] RN Member Role: Primary Care Nurse Name: Vita ROONEY, Maninder Sanon Position: Reference Physician Member Role: PCP Address: Address: [address] [place] [address]- Care Team Related Persons Name: DES WRIGHT Address: home [address] [place] [address] Name: GISELA WRIGHT Address: home [facility] [place] [address]
--- OUTSIDE RECORDS SUMMARY | 2024-04-15 20:05 | XMS_ITS | Continuity of Care Document ---
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 Start Date: 02/07/23 Status: Ordered aspirin 81 mg oral delayed release tablet 81 mg, 1, tablet, By Mouth, Daily, Do not start aspirin until 06/16/2022, # 90 tablet, Refills 0, Tot. Refills 0, Maintenance, 02/07/23 12:28:00 EDT, Route to Pharmacy Electronically, [facility] #[id number], Partial fill upon patient request if t... [...] mmHg and/or heart rate is below 55 [id number], # 180 tablet, Refills 0, Tot. Refills 0, Maintenance, 02/07/23 12:29:00 EDT, Route to Pharmacy Electronically... Start Date: 02/07/23 Status: Ordered Farxiga 10 mg oral tablet 1 tablet = 10 mg, By Mouth, Daily, # 90 tablet, 0 Refills, Maintenance, 02/07/23 12:33:00 EDT, Tablet, [facility] #[id number], Partial fill upon patient request if the prescription is for a schedule II opioid drug., 175, cm, 02/07/23 12:05:00 EDT... Start Date: 02/07/23 Status: Ordered ferrous sulfate 325 mg oral enteric coated tablet 325 mg, 1, tablet, By Mouth, Daily, # 90 tablet, Refills 0, Tot. Refills 0, Maintenance, 02/07/23 12:36:00 EDT, Route to Pharmacy Electronically, [facility] #[id number], Partial fill upon patient request if the prescription is for a schedule II o... Start Date: 02/07/23 Status: Ordered finasteride 5 mg oral tablet 1 tablet = 5 mg, By Mouth, Daily, # 90 tablet, 0 Refills, Maintenance, 02/07/23 12:28:00 EDT, Tablet, [facility] #[id number], Partial fill upon patient request if the [...] 02/07/23 12:31:00 EDT, Route to Pharmacy Electronically, [facility] #[id number], Partial fill... Start Date: 02/07/23 Status: Ordered lidocaine 5% topical film 1 patch, Topically, Daily, Apply to back of the neck tender point, 12 hours on then 12 hours off., # 30 patch, 0 Refills, Maintenance, 02/07/23 12:30:00 EDT, Patch, [facility] #[id number], Partial fill upon patient request if the prescription is... Start Date: 02/07/23 Status: Ordered Lipitor 80 mg oral tablet 1 tablet = 80 mg, By Mouth, Daily, # 90 tablet, 0 Refills, Maintenance, 02/07/23 12:28:00 EDT, Tablet, [facility] #[id number], 175, cm, 02/07/23 12:05:00 EDT, Height, 94, kg, 01/23/23 9:15:00 EDT, Dry Weight Start Date: 02/07/23 Status: Ordered midodrine 10 mg oral tablet 1 tablet = 10 mg, By Mouth, 3 times a day, To help maintain systolic blood pressure above 110-120 mmHg, # 90 tablet, 2 Refills, Maintenance, 02/07/23 12:33:00 EDT, Tablet, [facility] #[id number], Partial fill upon patient request if the prescript... Start Date: 02/07/23 Status: Ordered Narcan 4 mg/0.1 mL nasal spray = 4 mg, Nares, Both, Once, PRN Other, To reverse opioid overdose, administer to each nostril, may repeat every 2 to 3 minutes until patient responds, call 911 in the meantime., # 2 each, 0 Refills, Soft Stop, 02/07/23 12:41:00 EDT, [facility]... Start Date: 02/07/23 Status: Ordered [...] 02/07/23 12:29:00 EDT, Route to Pharmacy Electronically, [facility] #[id number],Partial fill upon patient request if the prescripti... [...] 0 Refills, Maintenance, 02/07/23 12:33:00 EDT, Tablet, [facility] #[id number], Partial fill upon patient request if the [...] February 2013. Urologist is Dr. Zafar Roa [facility] ). Social History Social History Type [...] Name: Lorraine Araujo RN Position: [facility] AMB Nurse Member Role: Primary Care Nurse Name: Adryan Rm RN Position: [facility] RN Member Role: Primary Care Nurse Name: Peg Trinidad RN Position: [facility] RN Member Role: Primary Care Nurse Name: Fely Gaspar Position: [facility] RN Member Role: Primary Care Nurse Name: Meli Luz LPN Position: [facility] RN Member Role: Primary Care Nurse Name: Matheus Cleveland RN Position: [facility] RN Member Role: Primary Care Nurse Name: Mercedes Maki Position: [facility] RN Member Role: Primary Care Nurse Name: Les Sahu MD Position: [facility] Renal MD Member Role: Lifetime Consulting Physician Address: Address: [address] [facility] [place], [place] [address]- Name: Gabby Ma RN Position: [facility] SN RN Member Role: Primary Care Nurse Name: Huyen Griffin Position: [facility] RN Member Role: Primary Care Nurse Name: Zo Vivar RN Position: [facility] RN Member Role: Primary Care Nurse Name: Vita ROONEY, Maninder Sanon Position: Reference Physician Member Role: PCP Address: Address: [address] [place] [address]- Care Team Related Persons Name: DES WRIGHT Address: home [address] [place] [address] Name: GISELA WRIGHT Address: home [place] [address]
--- OUTSIDE RECORDS SUMMARY | 2024-04-15 20:05 | XMS_ITS | Continuity of Care Document ---
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 Start Date: 08/21/23 Stop Date: 05/17/24 Status: Ordered amoxicillin 500 mg oral capsule 2 capsule = 1,000 mg, By Mouth, 3 times a day, # 240 capsule, 0 Refills, Maintenance, 07/28/23 10:17:00 EST, [facility] #[id number], Partial fill upon patient request if the prescription is for a schedule II opioid drug., 175.26, cm, 07/24/23 9:5... Start Date: 07/28/23 Stop Date: 09/06/23 Status: Ordered aspirin 81 mg oral delayed release tablet 81 mg, 1, tablet, By Mouth, Daily, Do not start aspirin until 06/16/2022, # 90 tablet, Refills 0, Tot. Refills 0, Maintenance, 02/07/23 12:28:00 EDT, Route to Pharmacy Electronically, [facility] #[id number], Partial fill upon patient request if t... [...] 08/17/23 7:00:00 EST, Route to Pharmacy Electronically, [facility] #[id number], Partial fill upon patient request if the [...] mmHg and/or heart rate is below 55 [id number], # 180 tablet, Refills 0, Tot. Refills 0, Maintenance, 02/07/23 12:29:00 EDT, Route to Pharmacy Electronically... Start Date: 02/07/23 Status: Ordered diclofenac 1% topical gel = 4 Gm, Topically, 4 times a day, PRN Pain , Moderate, # 100 Gm, 0 Refills, Maintenance, 08/15/23 11:37:00 EST, Gel, [facility] #[id number], Partial fill upon patient request if the prescriptionis for a schedule II opioid drug., 175, cm, ... Start Date: 08/15/23 Status: Ordered Farxiga 10 mg oral tablet 1 tablet = 10 mg, By Mouth, Daily, # 90 tablet, 0 Refills, Maintenance, 02/07/23 12:33:00 EDT, Tablet, [facility] #[id number], Partial fill upon patient request if the prescription is for a schedule II opioid drug., 175, cm, 02/07/23 12:05:00 EDT... Start Date: 02/07/23 Status: Ordered ferrous sulfate 325 mg oral enteric coated tablet 325 mg, 1, tablet, By Mouth, Daily, # 90 tablet, Refills 0, Tot. Refills 0, Maintenance, 02/07/23 12:36:00 EDT, Route to Pharmacy Electronically, [facility] #[id number], Partial fill upon patient request if the prescription is for a schedule II o... Start Date: 02/07/23 Status: Ordered finasteride 5 mg oral tablet 1 tablet = 5 mg, By Mouth, Daily, # 90 tablet, 0 Refills, Maintenance, 02/07/23 12:28:00 EDT, Tablet, [facility] #[id number], Partial fill upon patient request if the [...] 07/22/23 9:56:00 EST, Route to Pharmacy Electronically, [facility] #[id number], Partial fill upon patient request if the prescription is for a sche... Start Date: 07/22/23 Status: Ordered lactulose 10 gm/15 ml oral syrup See Instructions, PRN Other, Take 15 mL as needed for constipation, please maintain daily bowel movement, hold for excessive loose stool or diarrhea (more than 3 times a day)., # 480 mL, 0 Refills, Maintenance, 02/07/23 12:36:00 EDT, Syrup, [facility]... Start Date: 02/07/23 Status: Ordered Lipitor 80 mg oral tablet 1 tablet = 80 mg, By Mouth, Daily, # 90 tablet, 0 Refills, Maintenance, 02/07/23 12:28:00 EDT, Tablet, [facility] #[id number], 175, cm, 02/07/23 12:05:00 EDT, Height, 94, kg, 01/23/23 9:15:00 EDT, Dry Weight Start Date: 02/07/23 Status: Ordered midodrine 10 mg oral tablet 1 tablet = 10 mg, By Mouth, 3 times a day, To help maintain systolic blood pressure above 110-120 mmHg, # 90 tablet, 2 Refills, Maintenance, 02/07/23 12:33:00 EDT, Tablet, [facility] #[id number], Partial fill upon patient request if the [...] 02/07/23 12:29:00 EDT, Route to Pharmacy Electronically, [facility] #[id number],Partial fill upon patient request if the prescripti... [...] 0 Refills, Maintenance, 02/07/23 12:33:00 EDT, Tablet, [facility] #[id number], Partial fill upon patient [...] February 2013. Urologist is Dr. Zafar Roa [facility] ). Social History Social History Type Response Smoking Status Never (less than 100 in lifetime) entered on: 06/02/22 Sex Patient Care team information Care Team Personnel Name: Steff Puentes RN Position: [facility] RN Member Role: Primary Care Nurse Name: Kalyani Miller LPN Position: [facility] RN Member Role: Primary Care Nurse Name: Nadiya Coleman RN Position: [facility] RN Member Role: Primary Care Nurse Name: Tripp Machado RN Position: [facility] RN Member Role: Primary Care Nurse Name: Sobia Hilliard RN Position: [facility] RN Supv Member Role: Primary Care Nurse Name: Lupe Díaz RN Position: [facility] RN Member Role: Primary Care Nurse Name: Betsy Solano RN Position: [facility] RN Member Role: Primary Care Nurse Name: Lorraine Araujo RN Position: [facility] AMB Nurse Member Role: Primary Care Nurse Name: Adryan Rm RN Position: [facility] RN Member Role: Primary Care Nurse Name: Fely Gaspar Position: [facility] RN Member Role: Primary Care Nurse Name: Tonya Up RN Position: [facility] RN Member Role: Primary Care Nurse Name: Matheus Cleveland RN Position: [facility] RN Member Role: Primary Care Nurse Name: Karolina Barcenas RN Position: [facility] RN Member Role: Primary Care Nurse Name: Mercedes Maki Position: [facility] RN Member Role: Primary Care Nurse Name: Edna Horner RN Position: [facility] RN Member Role: Primary Care Nurse Name: Aguila Acevedo LPN Position: [facility] RN Member Role: Primary Care Nurse Name: Les Sahu MD Position: [facility] Renal MD Member Role: Lifetime Consulting Physician Address: Address: [address] [facility] [place], [place] [address]- Name: Nadia Lainez RN Position: S RN Member Role: Primary Care Nurse Name: Yohannes Watson RN Position: S RN Member Role: Primary Care Nurse Name: Omer Moreno MD Position: [facility] Renal MD Member Role: Lifetime Consulting Physician Address: Address: [address] [facility] [place] [address]- Name: Staci Salgado LPN Position: S RN Member Role: Primary Care Nurse Name: Zo Vivar RN Position: S RN Member Role: Primary Care Nurse Name: Anh Batista RN Position: [facility] RN Member Role: Primary Care Nurse Name: Vita ROONEY, Maninder Sanon Position: Reference Physician Member Role: PCP Address: Address: [address] [place] [address]- Care Team Related Persons Name: DES WRIGHT Address: home [address] [place] [address] Name: GISELA WRIGHT Address: [place] [address] Name: SURI FLOYD Address: home [address] [place] [address]
--- OUTSIDE RECORDS SUMMARY | 2024-04-15 20:05 | XMS_ITS | Continuity of Care Document ---
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 Start Date: 02/07/23 Status: Ordered aspirin 81 mg oral delayed release tablet 81 mg, 1, tablet, By Mouth, Daily, Do not start aspirin until 06/16/2022, # 90 tablet, Refills 0, Tot. Refills 0, Maintenance, 02/07/23 12:28:00 EDT, Route to Pharmacy Electronically, [facility] #[id number], Partial fill upon patient request if t... [...] mmHg and/or heart rate is below 55 [id number], # 180 tablet, Refills 0, Tot. Refills 0, Maintenance, 02/07/23 12:29:00 EDT, Route to Pharmacy Electronically... Start Date: 02/07/23 Status: Ordered Farxiga 10 mg oral tablet 1 tablet = 10 mg, By Mouth, Daily, # 90 tablet, 0 Refills, Maintenance, 02/07/23 12:33:00 EDT, Tablet, [facility] #[id number], Partial fill upon patient request if the prescription is for a schedule II opioid drug., 175, cm, 02/07/23 12:05:00 EDT... Start Date: 02/07/23 Status: Ordered ferrous sulfate 325 mg oral enteric coated tablet 325 mg, 1, tablet, By Mouth, Daily, # 90 tablet, Refills 0, Tot. Refills 0, Maintenance, 02/07/23 12:36:00 EDT, Route to Pharmacy Electronically, [facility] #[id number], Partial fill upon patient request if the prescription is for a schedule II o... Start Date: 02/07/23 Status: Ordered finasteride 5 mg oral tablet 1 tablet = 5 mg, By Mouth, Daily, # 90 tablet, 0 Refills, Maintenance, 02/07/23 12:28:00 EDT, Tablet, [facility] #[id number], Partial fill upon patient request if the [...] 02/07/23 12:31:00 EDT, Route to Pharmacy Electronically, [facility] #[id number], Partial fill... Start Date: 02/07/23 Status: Ordered lidocaine 5% topical film 1 patch, Topically, Daily, Apply to back of the neck tender point, 12 hours on then 12 hours off., # 30 patch, 0 Refills, Maintenance, 02/07/23 12:30:00 EDT, Patch, [facility] #[id number], Partial fill upon patient request if the prescription is... Start Date: 02/07/23 Status: Ordered Lipitor 80 mg oral tablet 1 tablet = 80 mg, By Mouth, Daily, # 90 tablet, 0 Refills, Maintenance, 02/07/23 12:28:00 EDT, Tablet, [email or web address] #[id number], 175, cm, 02/07/23 12:05:00 EDT, Height, 94, kg, 01/23/23 9:15:00 EDT, Dry Weight Start Date: 02/07/23 Status: Ordered midodrine 10 mg oral tablet 1 tablet = 10 mg, By Mouth, 3 times a day, To help maintain systolic blood pressure above 110-120 mmHg, # 90 tablet, 2 Refills, Maintenance, 02/07/23 12:33:00 EDT, Tablet, [email or web address] #[id number], Partial fill upon patient request if the prescript... Start Date: 02/07/23 Status: Ordered Narcan 4 mg/0.1 mL nasal spray = 4 mg, Nares, Both, Once, PRN Other, To reverse opioid overdose, administer to each nostril, may repeat every 2 to 3 minutes until patient responds, call 911 in the meantime., # 2 each, 0 Refills, Soft Stop, 02/07/23 12:41:00 EDT, [facility]... Start Date: 02/07/23 Status: Ordered NovoLOG [...] 02/07/23 12:29:00 EDT, Route to Pharmacy Electronically, [email or web address] #[id number],Partial fill upon patient request if the prescripti... [...] 0 Refills, Maintenance, 02/07/23 12:33:00 EDT, Tablet, [facility] #[id number], Partial fill upon patient request if the [...] February 2013. Urologist is Dr. Zafar Roa [facility] ). Social History Social History Type [...] Consulting Physician Address: Address: [address] [facility] [address] [facility] [address] [facility] [place], [place] [address]- Name: Gabby Ma RN Position: [facility] SN RN Member Role: Primary Care Nurse Name: Huyen Griffin Position: [facility] RN Member Role: Primary Care Nurse Name: Zo Vivar RN Position: [facility] RN Member Role: Primary Care Nurse Name: Vita ROONEY, Maninder Sanon Position: Reference Physician Member Role: PCP Address: Address: [address] [place] [address]- Care Team Related Persons Name: DES WRIGHT Address: [address] [place] [address] Name: GISELA WRIGHT Address: home [facility] [place] [address]
--- OUTSIDE RECORDS SUMMARY | 2024-04-15 20:05 | XMS_ITS | Continuity of Care Document ---
Author Organization [facility] Address [address] [place] [address]- Care Team Providers Care Job Coach/Job Developer Name Role Phone Roberto Carlos Arzola Primary Care Physician Encounter [facility] [place] Date(s): 07/17/23 - 08/16/[address] [address]- Attending Physician: Not on Staff, Attending MD [...] 240 capsule, 0 Refills, Maintenance, 07/28/23 10:17:00 [facility], [facility] #[id number], Partial fill upon patient request if the prescription is for a schedule II opioid drug., 175.26, cm, 07/24/23 9:5... Start Date: 07/28/23 Stop Date: 09/06/23 Status: Ordered aspirin 81 mg oral delayed release tablet 81 mg, 1, tablet, By Mouth, Daily, Do not start aspirin until 06/16/2022, # 90 tablet, Refills 0, Tot. Refills 0, Maintenance, 02/07/23 12:28:00 EDT, Route to Pharmacy Electronically, [facility] #[id number], Partial fill upon patient request if t... [...] 08/17/23 7:00:00 EST, Route to Pharmacy Electronically, [facility] #[id number], Partial fill upon patient request if the [...] mmHg and/or heart rate is below 55 [id number], # 180 tablet, Refills 0, Tot. Refills 0, Maintenance, 02/07/23 12:29:00 EDT, Route to Pharmacy Electronically... Start Date: 02/07/23 Status: Ordered diclofenac 1% topical gel = 4 Gm, Topically, 4 times a day, PRN Pain , Moderate, # 100 Gm, 0 Refills, Maintenance, 08/15/23 11:37:00 EST, Gel, [facility] #[id number], Partial fill upon patient request if the prescriptionis for a schedule II opioid drug., 175, cm, ... Start Date: 08/15/23 Status: Ordered Farxiga 10 mg oral tablet 1 tablet = 10 mg, By Mouth, Daily, # 90 tablet, 0 Refills, Maintenance, 02/07/23 12:33:00 EDT, Tablet, [facility] #[id number], Partial fill upon patient request if the prescription is for a schedule II opioid drug., 175, cm, 02/07/23 12:05:00 EDT... Start Date: 02/07/23 Status: Ordered ferrous sulfate 325 mg oral enteric coated tablet 325 mg, 1, tablet, By Mouth, Daily, # 90 tablet, Refills 0, Tot. Refills 0, Maintenance, 02/07/23 12:36:00 EDT, Route to Pharmacy Electronically, [facility] #[id number], Partial fill upon patient request if the prescription is for a schedule II o... Start Date: 02/07/23 Status: Ordered finasteride 5 mg oral tablet 1 tablet = 5 mg, By Mouth, Daily, # 90 tablet, 0 Refills, Maintenance, 02/07/23 12:28:00 EDT, Tablet, [facility] #[id number], Partial fill upon patient request if the [...] 07/22/23 9:56:00 EST, Route to Pharmacy Electronically, [facility] #[id number], Partial fill upon patient request if the prescription is for a sche... Start Date: 07/22/23 Status: Ordered lactulose 10 gm/15 ml oral syrup See Instructions, PRN Other, Take 15 mL as needed for constipation, please maintain daily bowel movement, hold for excessive loose stool or diarrhea (more than 3 times a day)., # 480 mL, 0 Refills, Maintenance, 02/07/23 12:36:00 EDT, Syrup, [facility]... Start Date: 02/07/23 Status: Ordered Lipitor 80 mg oral tablet 1 tablet = 80 mg, By Mouth, Daily, # 90 tablet, 0 Refills, Maintenance, 02/07/23 12:28:00 EDT, Tablet, [facility] #[id number], 175, cm, 02/07/23 12:05:00 EDT, Height, 94, kg, 01/23/23 9:15:00 EDT, Dry Weight Start Date: 02/07/23 Status: Ordered midodrine 10 mg oral tablet 1 tablet = 10 mg, By Mouth, 3 times a day, To help maintain systolic blood pressure above 110-120 mmHg, # 90 tablet, 2 Refills, Maintenance, 02/07/23 12:33:00 EDT, Tablet, [facility] #[id number], Partial fill upon patient request if the [...] 02/07/23 12:29:00 EDT, Route to Pharmacy Electronically, [facility] #[id number],Partial fill upon patient request if the prescripti... [...] 0 Refills, Maintenance, 02/07/23 12:33:00 EDT, Tablet, [facility] #[id number], Partial fill upon patient request if the [...] February 2013. Urologist is Dr. Zafar Roa [facility] ). Social History Social History Type Response Smoking Status Never (less than 100 in lifetime) entered on: 06/02/22 Sex Patient Care team information Care Team Personnel Name: Steff Puentes RN Position: S RN Member Role: Primary Care Nurse Name: Kalyani Miller LPN Position: [facility] RN Member Role: Primary Care Nurse Name: Nadiya Coleman RN Position: [facility] RN Member Role: Primary Care Nurse Name: Tripp Machado RN Position: [facility] RN Member Role: Primary Care Nurse Name: Sobia Hilliard RN Position: [facility] RN Supv Member Role: Primary Care Nurse Name: Lupe Díaz RN Position: [facility] RN Member Role: Primary Care Nurse Name: Betsy Solano RN Position: [facility] RN Member [...] Reference Physician Member Role: PCP Address: Address: [address] [place] [address] Name: Sher Sandoval RN Position: [facility] RN Member Role: Primary Care Nurse Name: Fely Gaspar Position: [facility] RN Member Role: Primary Care Nurse Name: Tonya Up RN Position: [facility] RN Member [...] Member Role: Lifetime Consulting Physician Address: Address: [address] [place] [address] [address] [facility], [place], [place] [address] Name: Gabby Ma RN Position: [facility] SN RN Member Role: Primary Care Nurse Name: Nadia Lainez RN Position: S RN Member Role: Primary Care Nurse Name: Yohannes Watson RN Position: S RN Member Role: Primary Care Nurse Name: Huyen Griffin RN Position: S RN Member Role: Primary Care Nurse Name: Omer Moreno MD Position: [facility] Renal MD Member Role: Lifetime Consulting Physician Address: Address: [address] [place] [address] [facility] [address] Name: Staci Salgado LPN Position: [facility] RN Member Role: Primary Care Nurse Name: Kanwal Ta RN Position: [facility] RN Member Role: Primary Care Nurse Name: Zo Vivar RN Position: S RN Member Role: Primary Care Nurse Name: Anh Batista RN Position: S RN Member Role: Primary Care Nurse Care Team Related Persons Name: DES WRIGHT Address: home [address] [place] [address] Name: GISELA WRIGHT Address: [place] [address]
--- OUTSIDE RECORDS SUMMARY | 2024-04-15 20:05 | XMS_ITS | Continuity of Care Document ---
Author Organization [facility] Address [address] [place] [address]- Care Team Providers Care Database Modeler Name Role Phone Vita ROONEY, Maninder Sanon Primary Care Physic naomi Encounter [facility] Date(s): 11/12/23 - 12/12/23 [facility] [address] [place] [id number] Attending Physician: AdmLaina alvarenga Admitting Physician: Admtr, Rocky8 Referring Physician: Admtr, Ar8 Allergies, Adverse Reactions, [...] 05/17/24 13:41:00 EDT, 08/21/23 13:41:00 EST, Capsule, [facility] #[id number], Partial fill upon patient request if the prescript... Start Date: 08/21/23 Stop Date: 05/17/24 Status: Ordered amoxicillin 500 mg oral capsule 2 capsule = 1,000 mg, By Mouth, 3 times a day, # 240 capsule, 0 Refills, Maintenance, 07/28/23 10:17:00 EST, [facility] #[id number], Partial fill upon patient request if the prescription is for a schedule II opioid drug., 175.26, cm, 07/24/23 9:5... Start Date: 07/28/23 Stop Date: 09/06/23 Status: Ordered aspirin 81 mg oral delayed release tablet 81 mg, 1, tablet, By Mouth, Daily, Do not start aspirin until 06/16/2022, # 90 tablet, Refills 0, Tot. Refills 0, Maintenance, 02/07/23 12:28:00 EDT, Route to Pharmacy Electronically, [facility] #[id number], Partial fill upon patient request if t... [...] 08/17/23 7:00:00 EST, Route to Pharmacy Electronically, [facility] #[id number], Partial fill upon patient request if the [...] mmHg and/or heart rate is below 55 [id number], # 180 tablet, Refills 0, Tot. Refills 0, Maintenance, 02/07/23 12:29:00 EDT, Route to Pharmacy Electronically... Start Date: 02/07/23 Status: Ordered diclofenac 1% topical gel = 4 Gm, Topically, 4 times a day, PRN Pain , Moderate, # 100 Gm, 0 Refills, Maintenance, 08/15/23 11:37:00 EST, Gel, [facility] #[id number], Partial fill upon patient request if the prescriptionis for a schedule II opioid drug., 175, cm, ... Start Date: 08/15/23 Status: Ordered Farxiga 10 mg oral tablet 1 tablet = 10 mg, By Mouth, Daily, # 90 tablet, 0 Refills, Maintenance, 02/07/23 12:33:00 EDT, [facility][id number], Partial fill upon patient request if the prescription is for a schedule II opioid drug., 175, cm, 02/07/23 12:05:00 EDT... Start Date: 02/07/23 Status: Ordered ferrous sulfate 325 mg oral enteric coated tablet 325 mg, 1, tablet, By Mouth, Daily, # 90 tablet, Refills 0, Tot. Refills 0, Maintenance, 02/07/23 12:36:00 EDT, Route to Pharmacy Electronically, [facility] #[id number], Partial fill upon patient request if the prescription is for a schedule II o... Start Date: 02/07/23 Status: Ordered finasteride 5 mg oral tablet 1 tablet = 5 mg, By Mouth, Daily, # 90 tablet, 0 Refills, Maintenance, 02/07/23 12:28:00 EDT, [facility] #[id number], Partial fill upon patient request if the [...] 07/22/23 9:56:00 EST, Route to Pharmacy Electronically, [facility] #[id number], Partial fill upon patient request if the [...] 0 Refills, Maintenance, 02/07/23 12:28:00 EDT, Tablet, [facility] #[id number], 175, cm, 02/07/23 12:05:00 EDT, Height, 94, kg, 01/23/23 9:15:00 EDT, Dry Weight Start Date: 02/07/23 Status: Ordered midodrine 10 mg oral tablet 1 tablet = 10 mg, By Mouth, 3 times a day, To help maintain systolic blood pressure above 110-120 mmHg, # 90 tablet, 2 Refills, Maintenance, 02/07/23 12:33:00 EDT, Tablet, [facility] #[id number], Partial fill upon patient request if the [...] 02/07/23 12:29:00 EDT, Route to Pharmacy Electronically, [facility] #[id number],Partial fill upon patient request if the prescripti... [...] 0 Refills, Maintenance, 02/07/23 12:33:00 EDT, Tablet, [facility] #[id number], Partial fill upon patient request if the [...] February 2013. Urologist is Dr. Zafar Roa [facility] ). Social History Social History Type Response Smoking Status Never (less than 100 in lifetime) entered on: 06/02/22 Sex Laboratory * Event Display: Non Lab Results Authored Date: Patient Care team information Care Team Personnel Name: Steff Puentes RN Position: [facility] RN Member Role: Primary Care Nurse Name: Kalyani Miller LPN Position: [facility] RN Member Role: Primary Care Nurse Name: Nadiya Coleman RN Position: [facility] RN Member Role: Primary Care Nurse Name: Tripp Machado RN Position: [facility] RN Member Role: Primary Care Nurse Name: Sobia Hilliard RN Position: [facility] RN Supv Member Role: Primary Care Nurse Name: Lupe Díaz RN Position: [facility] RN Member Role: Primary Care Nurse Name: Betsy Solano RN Position: [facility] RN Member Role: Primary Care Nurse Name: Lorraine Araujo RN Position: [facility] AMB Nurse Member Role: Primary Care Nurse Name: Adryan Rm RN Position: [facility] RN Member Role: Primary Care Nurse Name: Fely Gaspar Position: [facility] RN Member Role: Primary Care Nurse Name: Tonya Up RN Position: [facility] RN Member Role: Primary Care Nurse Name: Matheus Cleveland RN Position: [facility] RN Member Role: Primary Care Nurse Name: Karolina Barcenas RN Position: [facility] RN Member Role: Primary Care Nurse Name: Mercedes Maki Position: [facility] RN Member Role: Primary Care Nurse Name: Edna Horner RN Position: [facility] RN Member Role: Primary Care Nurse Name: Aguila Acevedo LPN Position: [facility] RN Member Role: Primary Care Nurse Name: Les Sahu MD Position: [facility] Renal MD Member Role: Lifetime Consulting Physician Address: Address: [address] [facility] [place] [address]- Name: Nadia Lainez RN Position: S RN Member Role: Primary Care Nurse Name: Yohannes Watson RN Position: S RN Member Role: Primary Care Nurse Name: Omer Moreno MD Position: [facility] Renal MD Member Role: Lifetime Consulting Physician Address: Address: [address] [facility] [address] [facility] [place] [address]- [place] Name: Staci Salgado LPN Position: S RN Member Role: Primary Care Nurse Name: Zo Vivar RN Position: S RN Member Role: Primary Care Nurse Name: Anh Batista RN Position: S RN Member Role: Primary Care Nurse Name: Vita ROONEY, Maninder Sanon Position: Reference Physician Member Role: PCP Address: Address: [address] [place] [address]- Care Team Related Persons Name: DES WRIGHT Address: home [address] [place] [address] Name: GISELA WRIGHT Address: [place] [address] Name: SURI FLOYD Address: home [address] [place] [address]
--- OUTSIDE RECORDS SUMMARY | 2024-04-15 20:05 | XMS_ITS | Continuity of Care Document ---
Author Organization [facility] ter Address [address] [place] [address]- Care Team Providers Care Housing Quality Standard Inspector Name Role Phone Vita ROONEY, Maninder Sanon Primary Care Physic naomi [place] [facility] [place]/04/23 - 03/30/[address] [address] Attending Physician: Mirella Rojas MD Admitting Physician: [...] 02/07/23 12:32:00 EDT, Route to Pharmacy Electronically, [facility] #[id number], Partial nikhil... Start Date: 02/07/23 Status: Ordered aspirin 81 mg oral delayed release tablet 81 mg, 1, tablet, By Mouth, Daily, Do not start aspirin until 06/16/2022, # 90 tablet, Refills 0, Tot. Refills 0, Maintenance, 02/07/23 12:28:00 EDT, Route to Pharmacy Electronically, [facility] #[id number], Partial fill upon patient request if t... [...] mmHg and/or heart rate is below 55 [id number], # 180 tablet, Refills 0, Tot. Refills 0, Maintenance, 02/07/23 12:29:00 EDT, Route to Pharmacy Electronically... Start Date: 02/07/23 Status: Ordered Farxiga 10 mg oral tablet 1 tablet = 10 mg, By Mouth, Daily, # 90 tablet, 0 Refills, Maintenance, 02/07/23 12:33:00 EDT, Tablet, [facility] #[id number], Partial fill upon patient request if the prescription is for a schedule II opioid drug., 175, cm, 02/07/23 12:05:00 EDT... Start Date: 02/07/23 Status: Ordered ferrous sulfate 325 mg oral enteric coated tablet 325 mg, 1, tablet, By Mouth, Daily, # 90 tablet, Refills 0, Tot. Refills 0, Maintenance, 02/07/23 12:36:00 EDT, Route to Pharmacy Electronically, [facility] #[id number], Partial fill upon patient request if the prescription is for a schedule II o... Start Date: 02/07/23 Status: Ordered finasteride 5 mg oral tablet 1 tablet = 5 mg, By Mouth, Daily, # 90 tablet, 0 Refills, Maintenance, 02/07/23 12:28:00 EDT, Tablet, [facility] #[id number], Partial fill upon patient request if the [...] 02/07/23 12:31:00 EDT, Route to Pharmacy Electronically, [facility] #[id number], Partial fill... Start Date: 02/07/23 Status: Ordered lidocaine 5% topical film 1 patch, Topically, Daily, Apply to back of the neck tender point, 12 hours on then 12 hours off., # 30 patch, 0 Refills, Maintenance, 02/07/23 12:30:00 EDT, Patch, [facility] #[id number], Partial fill upon patient request if the prescription is... Start Date: 02/07/23 Status: Ordered Lipitor 80 mg oral tablet 1 tablet = 80 mg, By Mouth, Daily, # 90 tablet, 0 Refills, Maintenance, 02/07/23 12:28:00 EDT, Tablet, [facility] #[id number], 175, cm, 02/07/23 12:05:00 EDT, Height, 94, kg, 01/23/23 9:15:00 EDT, Dry Weight Start Date: 02/07/23 Status: Ordered midodrine 10 mg oral tablet 1 tablet = 10 mg, By Mouth, 3 times a day, To help maintain systolic blood pressure above 110-120 mmHg, # 90 tablet, 2 Refills, Maintenance, 02/07/23 12:33:00 EDT, Tablet, [facility] #[id number], Partial fill upon patient request if the prescript... Start Date: 02/07/23 Status: Ordered Narcan 4 mg/0.1 mL nasal spray = 4 mg, Nares, Both, Once, PRN Other, To reverse opioid overdose, administer to each nostril, may repeat every 2 to 3 minutes until patient responds, call 911 in the meantime., # 2 each, 0 Refills, Soft Stop, 02/07/23 12:41:00 EDT, [facility]... Start Date: 02/07/23 Status: Ordered NovoLOG [...] 02/07/23 12:29:00 EDT, Route to Pharmacy Electronically, [facility] #[id number],Partial fill upon patient request if the prescripti... [...] 0 Refills, Maintenance, 02/07/23 12:33:00 EDT, Tablet, [facility] #[id number], Partial fill upon patient request if the [...] February 2013. Urologist is Dr. Zafar Roa [facility] ). Social History Social History Type [...] Care Nurse Name: Lorraine Araujo RN Position: [facility] AMB Nurse Member Role: Primary Care Nurse Name: Adryan Rm RN Position: [facility] RN Member Role: Primary Care Nurse Name: Peg Trinidad RN Position: [facility] RN Member Role: Primary Care Nurse Name: Fely Gaspar Position: [facility] RN Member Role: Primary Care Nurse Name: Meli Luz LPN Position: [facility] RN Member Role: Primary Care Nurse Name: Matheus Cleveland RN Position: [facility] RN Member Role: Primary Care Nurse Name: Mercedes Maki Position: [facility] RN Member Role: Primary Care Nurse Name: Les Sahu MD Position: [facility] Renal MD Member Role: Lifetime Consulting Physician Address: Address: [address] [facility] [place] [address]- Name: Gabby Ma RN Position: [facility] SN RN Member Role: Primary Care Nurse Name: Huyen Griffin Position: [facility] RN Member Role: Primary Care Nurse Name: Zo Vivar RN Position: [facility] RN Member Role: Primary Care Nurse Name: Vita ROONEY, Maninder Sanon Position: Reference Physician Member Role: PCP Address: Address: [address] [place] [address]- Care Team Related Persons Name: DES WRIGHT Address: home [address] [place] [address] Name: GISELA WRIGHT Address: home UNKNOWN [facility] [place] [address]
--- OUTSIDE RECORDS SUMMARY | 2024-04-15 20:05 | XMS_ITS | Continuity of Care Document ---
Author Organization [facility] ter Address [address] [place] [address]- Care Team Providers Care Cruller Maker Name Role Phone Vita ROONEY, Maninder Sanon Primary Care Physic naomi Encounter [facility] Date(s): 02/04/23 - 03/31/[address] [address] Attending Physician: Mirella Rojas MD Admitting [...] 02/07/23 12:32:00 EDT, Route to Pharmacy Electronically, [facility] #[id number], Partial nikhil... Start Date: 02/07/23 Status: Ordered aspirin 81 mg oral delayed release tablet 81 mg, 1, tablet, By Mouth, Daily, Do not start aspirin until 06/16/2022, # 90 tablet, Refills 0, Tot. Refills 0, Maintenance, 02/07/23 12:28:00 EDT, Route to Pharmacy Electronically, [facility] #[id number], Partial fill upon patient request if t... [...] mmHg and/or heart rate is below 55 ifsx-[id number], # 180 tablet, Refills 0, Tot. Refills 0, Maintenance, 02/07/23 12:29:00 EDT, Route to Pharmacy Electronically... Start Date: 02/07/23 Status: Ordered Farxiga 10 mg oral tablet 1 tablet = 10 mg, By Mouth, Daily, # 90 tablet, 0 Refills, Maintenance, 02/07/23 12:33:00 EDT, Tablet, [facility] #[id number], Partial fill upon patient request if the prescription is for a schedule II opioid drug., 175, cm, 02/07/23 12:05:00 EDT... Start Date: 02/07/23 Status: Ordered ferrous sulfate 325 mg oral enteric coated tablet 325 mg, 1, tablet, By Mouth, Daily, # 90 tablet, Refills 0, Tot. Refills 0, Maintenance, 02/07/23 12:36:00 EDT, Route to Pharmacy Electronically, [facility] #[id number], Partial fill upon patient request if the prescription is for a schedule II o... Start Date: 02/07/23 Status: Ordered finasteride 5 mg oral tablet 1 tablet = 5 mg, By Mouth, Daily, # 90 tablet, 0 Refills, Maintenance, 02/07/23 12:28:00 EDT, Tablet, [facility] #[id number], Partial fill upon patient request if the [...] 02/07/23 12:31:00 EDT, Route to Pharmacy Electronically, [facility] #[id number], Partial fill... Start Date: 02/07/23 Status: Ordered lidocaine 5% topical film 1 patch, Topically, Daily, Apply to back of the neck tender point, 12 hours on then 12 hours off., # 30 patch, 0 Refills, Maintenance, 02/07/23 12:30:00 EDT, Patch, [facility] #[id number], Partial fill upon patient request if the prescription is... Start Date: 02/07/23 Status: Ordered Lipitor 80 mg oral tablet 1 tablet = 80 mg, By Mouth, Daily, # 90 tablet, 0 Refills, Maintenance, 02/07/23 12:28:00 EDT, Tablet, [facility] #[id number], 175, cm, 02/07/23 12:05:00 EDT, Height, 94, kg, 01/23/23 9:15:00 EDT, Dry Weight Start Date: 02/07/23 Status: Ordered midodrine 10 mg oral tablet 1 tablet = 10 mg, By Mouth, 3 times a day, To help maintain systolic blood pressure above 110-120 mmHg, # 90 tablet, 2 Refills, Maintenance, 02/07/23 12:33:00 EDT, Tablet, [facility] #[id number], Partial fill upon patient request if the prescript... Start Date: 02/07/23 Status: Ordered Narcan 4 mg/0.1 mL nasal spray = 4 mg, Nares, Both, Once, PRN Other, To reverse opioid overdose, administer to each nostril, may repeat every 2 to 3 minutes until patient responds, call 911 in the meantime., # 2 each, 0 Refills, Soft Stop, 02/07/23 12:41:00 EDT, [facility]... Start Date: 02/07/23 Status: Ordered NovoLOG [...] 02/07/23 12:29:00 EDT, Route to Pharmacy Electronically, [facility] #[id number],Partial fill upon patient request if the prescripti... [...] 0 Refills, Maintenance, 02/07/23 12:33:00 EDT, Tablet, [facility] #[id number], Partial fill upon patient request if the [...] February 2013. Urologist is Dr. Zafar Roa [facility] ). Social History Social History Type [...] Care Nurse Name: Lorraine Araujo RN Position: [facility] AMB Nurse Member Role: Primary Care Nurse Name: Adryan Rm RN Position: [facility] RN Member Role: Primary Care Nurse Name: Peg Trinidad RN Position: [facility] RN Member Role: Primary Care Nurse Name: Fely Gaspar Position: [facility] RN Member Role: Primary Care Nurse Name: Meli Luz LPN Position: [facility] RN Member Role: Primary Care Nurse Name: Matheus Cleveland RN Position: [facility] RN Member Role: Primary Care Nurse Name: Mercedes Maki Position: [facility] RN Member Role: Primary Care Nurse Name: Les Sahu MD Position: [facility] Renal MD Member Role: Lifetime Consulting Physician Address: Address: [address] [facility] [place], [place] [address]- Name: Gabby Ma RN Position: [facility] SN RN Member Role: Primary Care Nurse Name: Huyen Griffin Position: [facility] RN Member Role: Primary Care Nurse Name: Zo Vivar RN Position: [facility] RN Member Role: Primary Care Nurse Name: Vita ROONEY, Maninder Sanon Position: Reference Physician Member Role: PCP Address: Address: [address] [place] [address]- Care Team Related Persons Name: DES WRIGHT Address: home [address] [place] [address] Name: GISELA WRIGHT Address: home [facility]KNOWN [place] [address]
--- NOTE | 2024-04-15 20:24 | MHC.CM.ED ---
CM filed with [facility] on behalf over patient's , Myesha Lopes. SEE note. Intake number [id number]
[2024-04-15 20:26] LABS: Glucose, Whole Blood 236 mg/dL (60-115)
[2024-04-15] MEDS: Atorvastatin Calcium 40 MG TABLET PO (21:07)
[2024-04-15] MEDS: Insulin Glargine,Hum.rec.anlog 100 UNIT/ML 10 ML VIAL 6 UNIT SUBCUT (21:07)
[2024-04-15] MEDS: Cyanocobalamin (Vitamin B-12) 1,000 MCG TABLET 1000 MCG PO (21:07)
[2024-04-16 03:08] VITALS: BP 109/51; PULSE 74; RESP 16; TEMP 37; O2SAT 94
[2024-04-16] MEDS: Omeprazole 20 MG CAPSULE.DR PO (05:53)
[2024-04-16 07:32] VITALS: BP 107/52; PULSE 74; RESP 16; TEMP 37; O2SAT 95
[2024-04-16 07:49] LABS: Glucose, Whole Blood 129 mg/dL (60-115)
[2024-04-16] MEDS: Ezetimibe 10 MG TABLET PO (08:11)
[2024-04-16] MEDS: 0.9 % Sodium Chloride Flush 3 ML SYRINGE IVFLUSH ×3 (08:11→20:34)
[2024-04-16] MEDS: Lactulose 20 GM/30 ML SOLUTION PO ×2 (08:11→20:34)
[2024-04-16] MEDS: Ferrous Sulfate 324 MG TABLET.DR PO (08:12)
[2024-04-16] MEDS: Gabapentin 300 MG CAPSULE PO ×2 (08:12→20:34)
[2024-04-16] MEDS: Tamsulosin HCL 0.4 MG CAPSULE PO (08:12)
[2024-04-16] MEDS: Empagliflozin 10 MG TABLET PO (08:12)
[2024-04-16] MEDS: Aspirin Enteric Coated 81 MG TABLET.DR PO (08:13)
[2024-04-16] MEDS: Finasteride 5 MG TABLET PO (08:13)
[2024-04-16] MEDS: Bumetanide 1 MG TABLET PO (08:17)
[2024-04-16] MEDS: Spironolactone 25 MG TABLET PO (08:18)
[2024-04-16] MEDS: carvediloL 6.25 MG TABLET PO ×2 (08:18→20:33)
--- NOTE | 2024-04-16 08:44 | MHC.CM.PN ---
Patient admitted to room 361. IMM addressed w/ HCP/son Blaise via telephone. Patient lives in home w/ who has dx dementia and is currently home alone (see ED CM note). Ambulates w/ cane/walker. [facility] [employer] [facility] 15 hrs/wk. Active w/ [facility] for SN. Also has [facility] CPAP (unsure of supplier). PCP Chao Lynne MD HCP on file and verified. DP: PT rec STR. Patient initially refused, now agreeable, no preferences. Local referrals sent via [facility]. CM will continue to follow.
--- NOTE | 2024-04-16 08:59 | P.PNIM_ITS ---
Subjective Subjective Date of Service: 04/16/24 Interval History: f/u on fall, uti no new issues Physical Exam 2 Vital Signs: Vital Signs: Last Vital Signs Temp 98.6 F 04/16/24 07:32 Pulse 74 04/16/24 07:32 Resp 16 04/16/24 07:32 BP 107/52 L 04/16/24 07:32 Pulse Ox 95 04/16/24 07:32 O2 Del Method Room Air 04/16/24 07:32 BMI result Body Mass Index 27.5 Const: Other: General: AO X 3, no acute distre Scalp hematoma stable, small Resp: CTA bilateral CVS: S1,S2,RRR GI: +BS, NT, no distention Skin: has multiple bruses on arms Neuro: motor grossly intact Psych: appropriate affect Objective Data Active Medications Acetaminophen (Acetaminophen 325 Mg Tablet) 650 mg PO Q6H PRN PRN Reason: Pain, Mild (Pain Scale 1-3), fever or headache Alprazolam (Alprazolam 0.5 Mg Tablet) 0.5 mg PO BID PRN PRN Reason: Anxiety Aspirin (Aspirin Enteric Coated 81 Mg Tablet.) 81 mg PO DAILY [facility] Last Admin: 04/16/24 08:13 Dose: 81 mg Documented By: JOSEPH Atorvastatin Calcium (Atorvastatin Calcium 40 Mg Tablet) 40 mg PO BEDTIME [facility] Last Admin: 04/15/24 21:07 Dose: 40 mg Documented By: JOELLEN Bumetanide (Bumetanide 1 Mg Tablet) 1 mg PO DAILY [facility]; Protocol Last Admin: 04/16/24 08:17 Dose: 1 mg Documented By: JOSEPH Calcium Carbonate (Calcium Carbonate 750 Mg Tab.Chew) 750 mg PO Q4H PRN PRN Reason: Heartburn Carvedilol (Carvedilol 6.25 Mg Tablet) 6.25 mg PO BID [facility]; Protocol Last Admin: 04/16/24 08:18 Dose: 6.25 mg Documented By: JOSEPH Cyanocobalamin (Cyanocobalamin (Vitamin B-12) 1,000 Mcg Tablet) 1,000 mcg PO BEDTIME [facility] Last Admin: 04/15/24 21:07 Dose: 1,000 mcg Documented By: JOELLEN Ezetimibe (Ezetimibe 10 Mg Tablet) 10 mg PO DAILY [facility] Last Admin: 04/16/24 08:11 Dose: 10 mg Documented By: JOSEPH Empagliflozin (Empagliflozin 10 Mg Tablet) 10 mg PO DAILY [facility] Last Admin: 04/16/24 08:12 Dose: 10 mg Documented By: JOSEPH Ferrous Sulfate (Ferrous Sulfate 324 Mg Tablet.Dr) 324 mg PO DAILY [facility] Last Admin: 04/16/24 08:12 Dose: 324 mg Documented By: JOSEPH Finasteride (Finasteride 5 Mg Tablet) 5 mg PO DAILY [facility] Last Admin: 04/16/24 08:13 Dose: 5 mg Documented By: JOSEPH Gabapentin (Gabapentin 300 Mg Capsule) 300 mg PO BID [facility] Last Admin: 04/16/24 08:12 Dose: 300 mg Documented By: JOSEPH Glucose (Glucose Gel 15 Gm Gel..Gram.) 15 gm PO Q15M PRN; Protocol PRN Reason: per Hypoglycemia Standing Ord. Dextrose (D10) 250 mls @ 750 mls/hr IV Q15M PRN; Protocol PRN Reason: per Hypoglycemia Standing Ord. Ceftriaxone Sodium 1 gm/ (Sodium Chloride) 50 mls @ 100 mls/hr IV Q24H [facility] Last Infusion: 04/15/24 15:04 Dose: Infused Documented By: KELIL Insulin Glargine (Insulin Glargine,Hum.Rec.Anlog 100 Unit/Ml 10 Ml Vial) 6 unit SUBCUT BEDTIME [facility] Last Admin: 04/15/24 21:07 Dose: 6 unit Documented By: JOELLEN Insulin Human Lispro (Insulin Lispro 100 Unit/Ml 3 Ml Vial) 0 unit SUBCUT QIDACHS [facility]; Protocol Last Admin: 04/16/24 08:03 Dose: Not Given Documented By: OJSEPH Non-Admin Reason: No Insulin Coverage Lactulose (Lactulose 20 Gm/30 Ml Solution) 20 gm PO BID [facility] Last Admin: 04/16/24 08:11 Dose: 20 gm Documented By: JOSEPH Magnesium Hydroxide (Milk Of Magnesia 30 Ml Oral.Susp) 30 ml PO DAILY PRN PRN Reason: Constipation Melatonin (Melatonin 3 Mg Tablet) 6 mg PO BEDTIME PRN PRN Reason: Insomnia Morphine Sulfate (Morphine Sulfate 2 Mg/Ml Cartridge) 1 mg IVPUSH Q6H PRN; Protocol PRN Reason: Pain, Severe (Pain Scale 7-10) Last Admin: 04/14/24 18:04 Dose: 1 mg Documented By: COMFORT Non-Formulary Medication (Dulaglutide [Trulicity]) 0.75 mg SUBCUT MO [facility] Omeprazole (Omeprazole 20 Mg Capsule.Dr) 20 mg PO DAILY@0630 [facility] Last Admin: 04/16/24 05:53 Dose: 20 mg Documented By: JOELLEN Ondansetron HCl (Ondansetron Hcl 4 Mg/2 Ml Vial) 4 mg IVPUSH Q8H PRN PRN Reason: Nausea and Vomiting Polyethylene Glycol (Polyethylene Glycol 3350 17 Gm Powd.Pack) 17 gm PO DAILY PRN PRN Reason: Constipation Sodium Chloride (0.9 % Sodium Chloride Flush 3 Ml Syringe) 3 ml IVFLUSH QSHIFT [facility] Last Admin: 04/16/24 08:11 Dose: 3 ml Documented By: JOSEPH Spironolactone (Spironolactone 25 Mg Tablet) 25 mg PO DAILY [facility]; Protocol Last Admin: 04/16/24 08:18 Dose: 25 mg Documented By: JOSEPH Tamsulosin HCl (Tamsulosin Hcl 0.4 Mg Capsule) 0.4 mg PO DAILY [facility] Last Admin: 04/16/24 08:12 Dose: 0.4 mg Documented By: JOSEPH Labs 04/16/24 09:26 04/15/24 18:21 Labs: Laboratory Results - last 24 hr 04/15/24 04/15/24 04/15/24 12:28 13:11 16:45 MCV MCH MCHC RDW Plt Count MPV Absolute Nucleated RBC Nucleated RBC % (auto) Anion Gap Estim Creat Clear Calc Estimated GFR POC Glucose 214 H 225 H 219 H Random Glucose Calcium 04/15/24 04/15/24 04/15/24 18:21 18:38 20:22 MCV 89.7 MCH 28.0 MCHC 31.2 RDW 17.0 H Plt Count 104 L MPV 11.5 Absolute Nucleated RBC 0.000 Nucleated RBC % (auto) 0.0 Anion Gap 13 Estim Creat Clear Calc 34.6 Estimated GFR 40 POC Glucose 196 H 236 H Random Glucose 237 H Calcium 8.3 L 04/16/24 07:37 MCV MCH MCHC RDW Plt Count MPV Absolute Nucleated RBC Nucleated RBC % (auto) Anion Gap Estim Creat Clear Calc Estimated GFR POC Glucose 129 H Random Glucose Calcium Microbiology Microbiology Results: Microbiology 04/14/24 15:41 Blood Culture - Preliminary Blood - Venous No growth after 24 hours. 04/14/24 15:29 Blood Culture - Preliminary Blood - Venous No growth after 24 hours. 04/14/24 Unknown Urine Culture - Final Urine clean catch - Clean Catch Midstream Assessment and Plan (1) Acute on chronic anemia: Status: Acute Plan 79-year-old male with history of hepatic cirrhosis complicated by esophageal varices and ascites, insulin-dependent type 2 diabetes, diabetic 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, hypertension, hyperlipidemia, history of prostate cancer, ANUJA on CPAP, chronic iron deficiency anemia, CAD on DAPT, h/o endocarditis s/p bioprosthetic TAVR, s/p pacemaker here with fall #Mechanical fall, -Fall precaution -PT and OT eval #Slur speech, CT head negative, according patient, ongoing since dental work up, possible component of UTI and Benzo use--at this time he appears to be at his baseline -PT has recommended STR but he has been reluctant but is finally agreable. #elevated ammonia--likely early hepatic encephalopathy, given lactulose #UTI--started Ceftriaxone 04/14, continue, culture negative #Back pain--xray of back (lumbar and thoracic) no fracture #CKD 3B--stable #Chronic anemia, requiring periodic transfusion, H/H is above transfusion threshold # hepatic cirrhosis complicated by esophageal varices, ascites -continue meds # insulin-dependent type 2 diabetes -POC glucose, diabetic diet, admelog on sliding scale -On Farsiga, Trulicity, Humalin 20 tid--Not on frumulary. -Lantus in place of Tresiba, Jariance for Farsiga.. and adjust as needed # CAD/HLD -Statin, Coreg, ASA (hold with any signs of bleeding) # BPH -continue tamsulosin, finasteride # diabetic 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 -hold gabapentin given sedation/encephalopathy # ANUJA on CPAP -CPAP bedtime DVT prophylaxis--compression device, no heparin d/t low platlets, recent hematoma and underlying chronic anemia Full code Obs to inpatient D/t fall from UTI, hepatic encephalopathy and required at least 2 midnihhts for management. Pt doesn't prove capability to be able to care for who is frail and demented, this has been a concern of trhe son (HCP) and [id number] who have repeated tried to convince them of alternate living situation, unfortunately the patient has continued to resist any idea other than staying in his house.. The son lives at least an hour a day and does his best to check up on them and there is also an individual who comes 4 times a day and help be limitted time and not at night. Case management will look into inquiry into protective services. Psych consult to assess capacity Quality Stroke Does the patient have a stroke diagnosis?: No VTE Prior VTE?: No VTE Risk Level:: Medical - moderate - high VTE Device Contraindication: N/A - Device Ordered VTE Drug Contraindication: Treatment Not Tolerated
[2024-04-16 09:43] LABS: Hematocrit 27.9 % (42.0-52.0); Hemoglobin 8.3 g/dl (14.0-18.0); Mean Corpuscular HGB Conc 29.7 g/dl (31.0-36.0); Mean Corpuscular Hemoglobin 27.1 pg (27.0-33.0); Mean Corpuscular Volume 91.2 fL (80.0-98.0); Mean Platelet Volume 11.1 fL (9.4-12.4); Red Blood Count 3.06 X10*6/uL (4.60-5.80); Red Cell Distribution Width 16.9 % (11.0-16.0); White Blood Count 4.8 X10*3/uL (4.8-10.8)
[2024-04-16 09:51] LABS: Ammonia 62 umol/L (13-55)
[2024-04-16 10:01] LABS: INTERNATIONAL NORM RATIO 1.2 (0.9-1.1); Prothrombin Time 14.5 SEC (11.1-13.3)
[2024-04-16 10:11] LABS: Platelet Count 99 X10*3/uL (160-400)
[2024-04-16 11:38] LABS: Glucose, Whole Blood 223 mg/dL (60-115)
[2024-04-16] MEDS: Insulin Lispro 100 UNIT/ML 3 ML VIAL SUBCUT ×3 (12:08→20:32)
[2024-04-16] MEDS: cefTRIAXone sodium 1 GM in 0.9 % Sodium Chloride 50 ML IV (13:40)
[2024-04-16 15:29] VITALS: BP 99/55; PULSE 72; RESP 20; TEMP 36.8; O2SAT 95
[2024-04-16 16:14] LABS: Glucose, Whole Blood 206 mg/dL (60-115)
[2024-04-16 19:31] VITALS: BP 105/51; PULSE 71; RESP 18; TEMP 36.9; O2SAT 94
[2024-04-16 20:11] LABS: Glucose, Whole Blood 206 mg/dL (60-115)
[2024-04-16 20:33] VITALS: BP 105/51; PULSE 71
[2024-04-16] MEDS: Cyanocobalamin (Vitamin B-12) 1,000 MCG TABLET 1000 MCG PO (20:33)
[2024-04-16] MEDS: Insulin Glargine,Hum.rec.anlog 100 UNIT/ML 10 ML VIAL 6 UNIT SUBCUT (20:33)
[2024-04-16] MEDS: Atorvastatin Calcium 40 MG TABLET PO (20:33)
[2024-04-17] VITALS (10 sets, daily range): BP systolic 96–112; BP diastolic 49–53; PULSE 65–74; RESP 12–18; TEMP 36.6–37.3; O2SAT 92–97
[2024-04-17] MEDS: Omeprazole 20 MG CAPSULE.DR PO (05:29)
[2024-04-17 07:58] LABS: Glucose, Whole Blood 124 mg/dL (60-115)
[2024-04-17] MEDS: Lactulose 20 GM/30 ML SOLUTION PO (08:44)
[2024-04-17] MEDS: 0.9 % Sodium Chloride Flush 3 ML SYRINGE IVFLUSH ×3 (08:44→22:01)
[2024-04-17] MEDS: Finasteride 5 MG TABLET PO (08:44)
[2024-04-17] MEDS: Spironolactone 25 MG TABLET PO (08:45)
[2024-04-17] MEDS: Gabapentin 300 MG CAPSULE PO ×2 (08:46→21:59)
[2024-04-17] MEDS: Ezetimibe 10 MG TABLET PO (08:46)
[2024-04-17] MEDS: Ferrous Sulfate 324 MG TABLET.DR PO (08:46)
[2024-04-17] MEDS: Empagliflozin 10 MG TABLET PO (08:46)
[2024-04-17] MEDS: Tamsulosin HCL 0.4 MG CAPSULE PO (08:47)
--- NOTE | 2024-04-17 09:24 | P.PNIM_ITS ---
Subjective Subjective Date of Service: 04/17/24 Interval History: f/u on fall, uti has nose bleed this morning, BP on lower side and holding mes. No confusion, no other complaints Physical Exam 2 Vital Signs: Vital Signs: Last Vital Signs Temp 99.2 F 04/17/24 07:35 Pulse 68 04/17/24 07:35 Resp 17 04/17/24 07:35 BP 98/53 L 04/17/24 08:45 Pulse Ox 92 04/17/24 07:35 O2 Del Method Room Air 04/17/24 07:35 BMI result Body Mass Index 27.5 Const: Other: General: AO X 3, no acute distre Scalp hematoma stable, small Resp: CTA bilateral CVS: S1,S2,RRR GI: +BS, NT, no distention Skin: has multiple bruses on arms Neuro: motor grossly intact Psych: appropriate affect Objective Data Active Medications Acetaminophen (Acetaminophen 325 Mg Tablet) 650 mg PO Q6H PRN PRN Reason: Pain, Mild (Pain Scale 1-3), fever or headache Alprazolam (Alprazolam 0.5 Mg Tablet) 0.5 mg PO BID PRN PRN Reason: Anxiety Aspirin (Aspirin Enteric Coated 81 Mg Tablet.) 81 mg PO DAILY [facility] Last Admin: 04/17/24 08:48 Dose: Not Given Documented By: JOSEPH Non-Admin Reason: bloody nose, held Atorvastatin Calcium (Atorvastatin Calcium 40 Mg Tablet) 40 mg PO BEDTIME [facility] Last Admin: 04/16/24 20:33 Dose: 40 mg Documented By: JOELLEN Bumetanide (Bumetanide 1 Mg Tablet) 1 mg PO DAILY [facility]; Protocol Last Admin: 04/17/24 08:47 Dose: Not Given Documented By: JOSEPH Non-Admin Reason: held low BP Calcium Carbonate (Calcium Carbonate 750 Mg Tab.Chew) 750 mg PO Q4H PRN PRN Reason: Heartburn Carvedilol (Carvedilol 6.25 Mg Tablet) 6.25 mg PO BID [facility]; Protocol Last Admin: 04/17/24 08:47 Dose: Not Given Documented By: JOSEPH Non-Admin Reason: held low BP Cyanocobalamin (Cyanocobalamin (Vitamin B-12) 1,000 Mcg Tablet) 1,000 mcg PO BEDTIME [facility] Last Admin: 04/16/24 20:33 Dose: 1,000 mcg Documented By: JOELLEN Ezetimibe (Ezetimibe 10 Mg Tablet) 10 mg PO DAILY [facility] Last Admin: 04/17/24 08:46 Dose: 10 mg Documented By: JOSEPH Empagliflozin (Empagliflozin 10 Mg Tablet) 10 mg PO DAILY [facility] [place] Last Admin: 04/17/24 08:46 Dose: 10 mg Documented By: JOSEPH Ferrous Sulfate (Ferrous Sulfate 324 Mg Tablet.) 324 mg PO DAILY [facility] [place] Last Admin: 04/17/24 08:46 Dose: 324 mg Documented By: JOSEPH Finasteride (Finasteride 5 Mg Tablet) 5 mg PO DAILY [facility] [place] Last Admin: 04/17/24 08:44 Dose: 5 mg Documented By: JOSEPH Gabapentin (Gabapentin 300 Mg Capsule) 300 mg PO BID [facility] [place] Last Admin: 04/17/24 08:46 Dose: 300 mg Documented By: JOSEPH Glucose (Glucose Gel 15 Gm Gel..Gram.) 15 gm PO Q15M PRN; Protocol PRN Reason: per Hypoglycemia Standing Ord. Dextrose (D10) 250 mls @ 750 mls/hr IV Q15M PRN; Protocol PRN Reason: per Hypoglycemia Standing Ord. Ceftriaxone Sodium 1 gm/ (Sodium Chloride) 50 mls @ 100 mls/hr IV Q24H [facility] Last Infusion: 04/16/24 14:10 Dose: Infused Documented By: JOSEPH Insulin Glargine (Insulin Glargine,Hum.Rec.Anlog 100 Unit/Ml 10 Ml Vial) 6 unit SUBCUT BEDTIME [facility] Last Admin: 04/16/24 20:33 Dose: 6 unit Documented By: JOELLEN Insulin Human Lispro (Insulin Lispro 100 Unit/Ml 3 Ml Vial) 0 unit SUBCUT QIDACHS [facility]; Protocol Last Admin: 04/17/24 08:34 Dose: Not Given Documented By: JOSEPH Non-Admin Reason: No Insulin Coverage Lactulose (Lactulose 20 Gm/30 Ml Solution) 20 gm PO BID [facility] [place] Last Admin: 04/17/24 08:44 Dose: 20 gm Documented By: JOSEPH Magnesium Hydroxide (Milk Of Magnesia 30 Ml Oral.Susp) 30 ml PO DAILY PRN PRN Reason: Constipation Melatonin (Melatonin 3 Mg Tablet) 6 mg PO BEDTIME PRN PRN Reason: Insomnia Morphine Sulfate (Morphine Sulfate 2 Mg/Ml Cartridge) 1 mg IVPUSH Q6H PRN; Protocol PRN Reason: Pain, Severe (Pain Scale 7-10) Last Admin: 04/14/24 18:04 Dose: 1 mg Documented By: COMFORT Non-Formulary Medication (Dulaglutide [Trulicity]) 0.75 mg SUBCUT MO [facility] Omeprazole (Omeprazole 20 Mg Capsule.) 20 mg PO DAILY@0630 [facility] Last Admin: 04/17/24 05:29 Dose: 20 mg Documented By: JOELLEN Ondansetron HCl (Ondansetron Hcl 4 Mg/2 Ml Vial) 4 mg IVPUSH Q8H PRN PRN Reason: Nausea and Vomiting Polyethylene Glycol (Polyethylene Glycol 3350 17 Gm Powd.Pack) 17 gm PO DAILY PRN PRN Reason: Constipation Sodium Chloride (0.9 % Sodium Chloride Flush 3 Ml Syringe) 3 ml IVFLUSH QSHIFT [facility] Last Admin: 04/17/24 08:44 Dose: 3 ml Documented By: JOSEPH Spironolactone (Spironolactone 25 Mg Tablet) 25 mg PO DAILY [facility]; Protocol Last Admin: 04/17/24 08:45 Dose: 25 mg Documented By: JOSEPH Tamsulosin HCl (Tamsulosin Hcl 0.4 Mg Capsule) 0.4 mg PO DAILY [facility] Last Admin: 04/17/24 08:47 Dose: 0.4 mg Documented By: JOSEPH Labs 04/16/24 09:26 04/15/24 18:21 Labs: Laboratory Results - last 24 hr 04/16/24 04/16/24 04/16/24 09:26 11:28 16:04 MCV 91.2 MCH 27.1 MCHC 29.7 L RDW 16.9 H Plt Count 99 L MPV 11.1 Absolute Nucleated RBC 0.000 Nucleated RBC % (auto) 0.0 PT 14.5 H INR 1.2 H POC Glucose 223 H 206 H Ammonia 62 H 04/16/24 04/17/24 20:08 07:41 MCV MCH MCHC RDW Plt Count MPV Absolute Nucleated RBC Nucleated RBC % (auto) PT INR POC Glucose 206 H 124 H Ammonia Microbiology Microbiology Results: Microbiology 04/14/24 15:41 Blood Culture - Preliminary Blood - Venous No growth after 48 hours. 04/14/24 15:29 Blood Culture - Preliminary Blood - Venous No growth after 48 hours. Assessment and Plan (1) Acute on chronic anemia: Status: Acute Plan 79-year-old male with history of hepatic cirrhosis complicated by esophageal varices and ascites, insulin-dependent type 2 diabetes, diabetic 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, hypertension, hyperlipidemia, history of prostate cancer, ANUJA on CPAP, chronic iron deficiency anemia, CAD on DAPT, h/o endocarditis s/p bioprosthetic TAVR, s/p pacemaker here with fall #Mechanical fall, -Fall precaution -PT recommend STR #Slur speech, CT head negative, according patient, ongoing since dental work up, possible component of UTI and Benzo use--at this time he appears to be at his baseline -PT has recommended STR but he has been reluctant but is finally agreeable. #elevated ammonia--likely early hepatic encephalopathy, no confusion at the moment, continue lactulose #UTI--started Ceftriaxone 04/14, continue, culture negative, treat for 3 days #Back pain--xray of back (lumbar and thoracic) no fracture #CKD 3B--stable #Chronic anemia, requiring periodic transfusion, H/H is above transfusion threshold # hepatic cirrhosis complicated by esophageal varices, ascites -continue meds --bumex, aldactone, lactulose, coreg #thrombocytopenia--chronic d/t cirrhosis, stop ASA d/t nose bleed and follow platlents level # insulin-dependent type 2 diabetes -POC glucose, diabetic diet, admelog on sliding scale -On Farsiga, Trulicity, Humalin 20 tid--Not on frumulary. -Lantus in place of Tresiba, Jariance and sliding scale # CAD/HLD -Statin, Coreg, ASA (hold with any signs of bleeding) # BPH -continue tamsulosin, finasteride # diabetic 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 -hold gabapentin given sedation/encephalopathy # ANUJA on CPAP -CPAP bedtime DVT prophylaxis--compression device, no heparin d/t low platlets, recent hematoma and underlying chronic anemia Full code, to be readdressed with son, pt hs wavered back and forth between full code and dnR Obs to inpatient D/t fall from UTI, hepatic encephalopathy and required at least 2 midnihhts for management. Pt doesn't prove capability to be able to care for who is frail and demented, this has been a concern of trhe son (HCP) and [id number] who have repeated tried to convince them of alternate living situation, unfortunately the patient has continued to resist any idea other than staying in his house.. The son lives at least an hour a day and does his best to check up on them and there is also an individual who comes 4 times a day and help be limitted time and not at night. Case management will look into inquiry into protective services. Psych consult to assess capacity Quality Stroke Does the patient have a stroke diagnosis?: No VTE Prior VTE?: No VTE Risk Level:: Medical - moderate - high VTE Device Contraindication: N/A - Device Ordered VTE Drug Contraindication: Treatment Not Tolerated
[2024-04-17 10:01] LABS: Hematocrit 22.5 % (42.0-52.0); Mean Corpuscular HGB Conc 30.7 g/dl (31.0-36.0); Mean Corpuscular Hemoglobin 27.4 pg (27.0-33.0); Mean Corpuscular Volume 89.3 fL (80.0-98.0); Mean Platelet Volume 10.2 fL (9.4-12.4); Red Blood Count 2.52 X10*6/uL (4.60-5.80); Red Cell Distribution Width 16.4 % (11.0-16.0); White Blood Count 3.8 X10*3/uL (4.8-10.8)
[2024-04-17 10:08] LABS: Platelet Count 92 X10*3/uL (160-400)
[2024-04-17 10:13] LABS: Hemoglobin 6.9 g/dl (14.0-18.0)
[2024-04-17 10:20] LABS: Anion Gap 13 (12-20); Blood Urea Nitrogen 53 mg/dL (9-16); Calcium 7.6 mg/dL (8.4-10.2); Carbon Dioxide 21 mmol/L (22-29); Chloride 107 mmol/L (96-108); Creatinine Clr Calc Pharmacy 39.4; Estimated Glomerular Filt Rate 46; Glucose Random 215 mg/dL (60-115); Potassium 4.2 mmol/L (3.3-5.1); Sodium 137 mmol/L (135-145)
[2024-04-17 11:42] LABS: Glucose, Whole Blood 194 mg/dL (60-115)
--- NOTE | 2024-04-17 11:44 | P.CNPS_ITS ---
History of Present Illness Date of Service: 04/17/2024 Chief Complaint: Fall, slur speech Reason for Consult: capacity Requesting physician: Néstor Terry Discussed with referring provider: Yes Sources of Information: patient interviewed, chart reviewed and crisis/core team assessment reviewed HPI Narrative: Mr. Lopes is an 79 year-old male who was brought via EMS after fall. There was concern in terms of slurred speech and confusion. Pt noted to be confused at times and psychiatry asked to do capacity assessment. Pt seen in his room. 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 Pt reports he felt and this being the reason for coming to the hospital. In terms of ongoing medical concerns- including UTI, medications he is on, or why he has not been discharged home (pt has been hypotensive and also may required transfusion), he is not able to provide more details. He is oriented to place, year, month. However, in terms of pt providing more information about medical care he is not able to do so. He expresses frustration as to why he still is in the hospital. Pt reminded of ongoing medical concerns including blood pressure, need for transfusion, possible STR. [facility] Medical History DMII (diabetes mellitus, type 2) Hyperglycemia Symptomatic anemia Difficulty walking Anemia 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 Streptococcal bacteremia Fracture of left humerus History of prostate cancer Acute lower gastrointestinal bleeding COVID-19 vaccine series completed Hypertension Dyslipidemia Diabetic nephropathy associated with type 2 diabetes mellitus Diabetic 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 associated with type 2 diabetes mellitus MCC (current) use of insulin Diabetes type 2, uncontrolled Varices of esophagus determined by endoscopy Esophageal varices without bleeding KOEHLER (dyspnea on exertion) Chronic fatigue Iron deficiency anemia CAD (coronary artery disease) ANUJA on CPAP Prostate cancer Spinal stenosis On beta kayy at home IBS (irritable colon syndrome) Aortic stenosis HTN (hypertension) Polyneuropathy GERD (gastroesophageal reflux disease) Surgical History S/P infectious endocarditis H/O cataract extraction Hx of endoscopy History of colonoscopy Hx of esophagogastroduodenoscopy Hx of colonoscopy History of surgery History of transurethral resection of prostate History of surgery History of heart artery stent Diagnostics Vital Signs (24Hr): Vital Signs - 24 hr 04/16/24 15:29 04/16/24 19:31 04/16/24 20:33 Temperature 98.3 F 98.5 F Pulse Rate 72 71 71 Respiratory Rate 20 18 Blood Pressure 99/55 L 105/51 L 105/51 L Pulse Oximetry 95 94 Oxygen Delivery Method Room Air Room Air 04/17/24 03:54 04/17/24 07:35 04/17/24 08:45 Temperature 98.2 F 99.2 F Pulse Rate 74 68 Respiratory Rate 18 17 Blood Pressure 96/50 L 98/53 L 98/53 L Pulse Oximetry 97 92 Oxygen Delivery Method Room Air Room Air BMI result Body Mass Index 27.5 Labs 04/18/24 05:53 04/17/24 09:56 Labs: Laboratory Results - last 48 hr 04/14/24 04/15/24 04/15/24 11:42 12:28 13:11 WBC RBC Hgb Hct MCV MCH MCHC RDW Plt Count MPV Absolute Nucleated RBC Nucleated RBC % (auto) PT INR Sodium Potassium Chloride Carbon Dioxide Anion Gap BUN Creatinine Estim Creat Clear Calc Estimated GFR POC Glucose 214 H 225 H Random Glucose Calcium Ammonia Blood Type A Positive Antibody Screen NEGATIVE Crossmatch See Detail 04/15/24 04/15/24 04/15/24 16:45 18:21 18:38 WBC 4.1 L RBC 3.11 L Hgb 8.7 L Hct 27.9 L MCV 89.7 MCH 28.0 MCHC 31.2 RDW 17.0 H Plt Count 104 L MPV 11.5 Absolute Nucleated RBC 0.000 Nucleated RBC % (auto) 0.0 PT INR Sodium 144 Potassium 4.3 Chloride 110 H Carbon Dioxide 25 Anion Gap 13 BUN 50 H Creatinine 1.67 H Estim Creat Clear Calc 34.6 Estimated GFR 40 POC Glucose 219 H 196 H Random Glucose 237 H Calcium 8.3 L Ammonia Blood Type Antibody Screen Crossmatch 04/15/24 04/16/24 04/16/24 20:22 07:37 09:26 WBC 4.8 RBC 3.06 L Hgb 8.3 L Hct 27.9 L MCV 91.2 MCH 27.1 MCHC 29.7 L RDW 16.9 H Plt Count 99 L MPV 11.1 Absolute Nucleated RBC 0.000 Nucleated RBC % (auto) 0.0 PT 14.5 H INR 1.2 H Sodium Potassium Chloride Carbon Dioxide Anion Gap BUN Creatinine Estim Creat Clear Calc Estimated GFR POC Glucose 236 H 129 H Random Glucose Calcium Ammonia 62 H Blood Type Antibody Screen Crossmatch 04/16/24 04/16/24 04/16/24 11:28 16:04 20:08 WBC RBC Hgb Hct MCV MCH MCHC RDW Plt Count MPV Absolute Nucleated RBC Nucleated RBC % (auto) PT INR Sodium Potassium Chloride Carbon Dioxide Anion Gap BUN Creatinine Estim Creat Clear Calc Estimated GFR POC Glucose 223 H 206 H 206 H Random Glucose Calcium Ammonia Blood Type Antibody Screen Crossmatch 04/17/24 04/17/24 04/17/24 07:41 09:56 11:30 WBC 3.8 L RBC 2.52 L Hgb 6.9 L* Hct 22.5 L MCV 89.3 MCH 27.4 MCHC 30.7 L RDW 16.4 H Plt Count 92 L MPV 10.2 Absolute Nucleated RBC 0.000 Nucleated RBC % (auto) 0.0 PT INR Sodium 137 Potassium 4.2 Chloride 107 Carbon Dioxide 21 L Anion Gap 13 BUN 53 H Creatinine 1.47 H Estim Creat Clear Calc 39.4 Estimated GFR 46 POC Glucose 124 H 194 H Random Glucose 215 H Calcium 7.6 L D Ammonia Blood Type Antibody Screen Crossmatch Imaging Radiology Impressions: ITS Impressions Chest X-Ray 04/14/24 11:58 IMPRESSION: 1. No acute intrathoracic disease. 2. Cardiomegaly. 3. Healing left humeral neck fracture. Cervical Spine CT 04/14/24 12:20 IMPRESSION: 1. No acute intracranial hemorrhage or territorial infarction. Diffuse brain parenchymal volume loss and severe chronic white matter microangiopathy. High left frontal scalp laceration with jignesh in place. 2. No evidence of acute cervical spine traumatic injury. Multilevel spondylosis with moderate to severe central canal stenosis and a broad-based central disc protrusion at the C6-C7 level. Chronic deformity of the C5 and C6 vertebral bodies with endplate fusion and focal kyphosis. 3. Chronic ossification/calcification of the longus colli muscles at the C2 level. Head CT 04/14/24 12:20 IMPRESSION: 1. No acute intracranial hemorrhage or territorial infarction. Diffuse brain parenchymal volume loss and severe chronic white matter microangiopathy. High left frontal scalp laceration with jignesh in place. 2. No evidence of acute cervical spine traumatic injury. Multilevel spondylosis with moderate to severe central canal stenosis and a broad-based central disc protrusion at the C6-C7 level. Chronic deformity of the C5 and C6 vertebral bodies with endplate fusion and focal kyphosis. 3. Chronic ossification/calcification of the longus colli muscles at the C2 level. Lumbar Spine X-Ray 04/14/24 16:13 IMPRESSION: * No evidence of spinal fracture or traumatic subluxation. No acute abnormalities in the thoracic spine or lumbosacral spine. * Within the lumbar spine, the disc degenerative change is chronically worst at L5-S1. * At L4-5, there is severe facet osteoarthritis, disc degenerative change and chronic grade 1 anterolisthesis of L4 on L5. * Cholelithiasis. * Atherosclerotic disease. Thoracic Spine X-Ray 04/14/24 16:13 IMPRESSION: * No evidence of spinal fracture or traumatic subluxation. No acute abnormalities in the thoracic spine or lumbosacral spine. * Within the lumbar spine, the disc degenerative change is chronically worst at L5-S1. * At L4-5, there is severe facet osteoarthritis, disc degenerative change and chronic grade 1 anterolisthesis of L4 on L5. * Cholelithiasis. * Atherosclerotic disease. Mental Status Exam Mental Status Exam Narrative: Appearance: wearing hospital gown, noted ascites, in NAD behavior: cooperative Psychomotor: no agitation or retardation noted Speech: mostly clear, normal rate/rhythm/volume, spontaneous TP: mostly linear TC: wanting to go home soon Mood: okay Affect: congruent SI: none HI: none VH/AH: none delusions: none Insight/judgment: impaired x 2. Memory/cog: alert, oriented to place, month, year, recommend MOCA Medications Medications Current Medications Acetaminophen (Acetaminophen 325 Mg Tablet) 650 mg PO Q6H PRN PRN Reason: Pain, Mild (Pain Scale 1-3), fever or headache Alprazolam (Alprazolam 0.5 Mg Tablet) 0.5 mg PO BID PRN PRN Reason: Anxiety Atorvastatin Calcium (Atorvastatin Calcium 40 Mg Tablet) 40 mg PO BEDTIME [facility] Last Admin: 04/16/24 20:33 Dose: 40 mg Bumetanide (Bumetanide 1 Mg Tablet) 1 mg PO DAILY [facility]; Protocol Last Admin: 04/17/24 08:47 Dose: Not Given Calcium Carbonate (Calcium Carbonate 750 Mg Tab.Chew) 750 mg PO Q4H PRN PRN Reason: Heartburn Carvedilol (Carvedilol 6.25 Mg Tablet) 6.25 mg PO BID [facility]; Protocol Last Admin: 04/17/24 08:47 Dose: Not Given Cyanocobalamin (Cyanocobalamin (Vitamin B-12) 1,000 Mcg Tablet) 1,000 mcg PO BEDTIME [facility] Last Admin: 04/16/24 20:33 Dose: 1,000 mcg Ezetimibe (Ezetimibe 10 Mg Tablet) 10 mg PO DAILY [facility] Last Admin: 04/17/24 08:46 Dose: 10 mg Empagliflozin (Empagliflozin 10 Mg Tablet) 10 mg PO DAILY [facility] Last Admin: 04/17/24 08:46 Dose: 10 mg Ferrous Sulfate (Ferrous Sulfate 324 Mg Tablet.Dr) 324 mg PO DAILY [facility] Last Admin: 04/17/24 08:46 Dose: 324 mg Finasteride (Finasteride 5 Mg Tablet) 5 mg PO DAILY [facility] Last Admin: 04/17/24 08:44 Dose: 5 mg Gabapentin (Gabapentin 300 Mg Capsule) 300 mg PO BID [facility] Last Admin: 04/17/24 08:46 Dose: 300 mg Glucose (Glucose Gel 15 Gm Gel..Gram.) 15 gm PO Q15M PRN; Protocol PRN Reason: per Hypoglycemia Standing Ord. Dextrose (D10) 250 mls @ 750 mls/hr IV Q15M PRN; Protocol PRN Reason: per Hypoglycemia Standing Ord. Ceftriaxone Sodium 1 gm/ (Sodium Chloride) 50 mls @ 100 mls/hr IV Q24H [facility] Last Infusion: 04/16/24 14:10 Dose: Infused Insulin Glargine (Insulin Glargine,Hum.Rec.Anlog 100 Unit/Ml 10 Ml Vial) 6 unit SUBCUT BEDTIME [facility] Last Admin: 04/16/24 20:33 Dose: 6 unit Insulin Human Lispro (Insulin Lispro 100 Unit/Ml 3 Ml Vial) 0 unit SUBCUT QIDACHS [facility]; Protocol Last Admin: 04/17/24 08:34 Dose: Not Given Lactulose (Lactulose 20 Gm/30 Ml Solution) 20 gm PO BID [facility] Last Admin: 04/17/24 08:44 Dose: 20 gm Magnesium Hydroxide (Milk Of Magnesia 30 Ml Oral.Susp) 30 ml PO DAILY PRN PRN Reason: Constipation Melatonin (Melatonin 3 Mg Tablet) 6 mg PO BEDTIME PRN PRN Reason: Insomnia Morphine Sulfate (Morphine Sulfate 2 Mg/Ml Cartridge) 1 mg IVPUSH Q6H PRN; Protocol PRN Reason: Pain, Severe (Pain Scale 7-10) Last Admin: 04/14/24 18:04 Dose: 1 mg Non-Formulary Medication (Dulaglutide [Trulicity]) 0.75 mg SUBCUT MO [facility] Omeprazole (Omeprazole 20 Mg Capsule.Dr) 20 mg PO DAILY@0630 [facility] Last Admin: 04/17/24 05:29 Dose: 20 mg Ondansetron HCl (Ondansetron Hcl 4 Mg/2 Ml Vial) 4 mg IVPUSH Q8H PRN PRN Reason: Nausea and Vomiting Polyethylene Glycol (Polyethylene Glycol 3350 17 Gm Powd.Pack) 17 gm PO DAILY PRN PRN Reason: Constipation Sodium Chloride (0.9 % Sodium Chloride Flush 3 Ml Syringe) 3 ml IVFLUSH QSHIFT [facility] Last Admin: 04/17/24 08:44 Dose: 3 ml Spironolactone (Spironolactone 25 Mg Tablet) 25 mg PO DAILY [facility]; Protocol Last Admin: 04/17/24 08:45 Dose: 25 mg Tamsulosin HCl (Tamsulosin Hcl 0.4 Mg Capsule) 0.4 mg PO DAILY [facility] Last Admin: 04/17/24 08:47 Dose: 0.4 mg Allergies Allergies Allergy/AdvReac Type Severity Reaction Status Date / Time KARL Inhibitors Allergy Severe Angioedema Verified 04/14/24 10:39 dextran 40 [DEXTRAN 40] Allergy Intermediate tachycardia Verified 04/14/24 10:39 latex [LATEX] Allergy Mild BLISTERS Verified 04/14/24 10:39 lisinopril [From Zestril] Allergy Mild Unknown Verified 04/14/24 10:39 Iodinated Contrast Media Allergy Unknown UNKNOWN Verified 04/14/24 10:39 [CONTRAST,IV] Assessment & Plan Assessment & Plan (1) Cognitive impairment: Status: Acute Code(s): R41.89 - Other symptoms and signs involving cognitive functions and awareness Plan Mr. Lopes is a 79 year-old male who was brought to [facility] due to fall, concern of slurred speech, now resolved. Capacity assessment completed which shows that although pt is oriented to place, month, year, when it comes to his ability to show understanding of current medical conditions, medical concerns that have delayed his discharge is limited due to impairment in ability to retain and comprehend more complex information. He does not appear delirious to suspect this is an acute and transient confusion, but instead suspect underlying dementing process most likely of vascular type. PLAN 1. Recommend to invoke HCP 2. OT can complete MOCA 3. safety in the home given that both pt and his have cognitive impairments. Total time managing care of this patient today ____ minutes.
[2024-04-17] MEDS: Insulin Lispro 100 UNIT/ML 3 ML VIAL SUBCUT ×3 (11:56→22:00)
[2024-04-17] MEDS: cefTRIAXone sodium 1 GM in 0.9 % Sodium Chloride 50 ML IV (13:20)
[2024-04-17 16:24] LABS: Glucose, Whole Blood 211 mg/dL (60-115)
[2024-04-17 20:43] LABS: Glucose, Whole Blood 310 mg/dL (60-115)
[2024-04-17 21:43] LABS: Hematocrit 26.2 % (42.0-52.0); Hemoglobin 8.2 g/dl (14.0-18.0); Mean Corpuscular HGB Conc 31.3 g/dl (31.0-36.0); Mean Corpuscular Hemoglobin 27.8 pg (27.0-33.0); Mean Corpuscular Volume 88.8 fL (80.0-98.0); Mean Platelet Volume 9.7 fL (9.4-12.4); Red Blood Count 2.95 X10*6/uL (4.60-5.80); White Blood Count 3.8 X10*3/uL (4.8-10.8)
[2024-04-17] MEDS: Insulin Glargine,Hum.rec.anlog 100 UNIT/ML 10 ML VIAL 6 UNIT SUBCUT (22:00)
[2024-04-17] MEDS: Atorvastatin Calcium 40 MG TABLET PO (22:00)
[2024-04-17] MEDS: Cyanocobalamin (Vitamin B-12) 1,000 MCG TABLET 1000 MCG PO (22:00)
[2024-04-17] MEDS: carvediloL 6.25 MG TABLET PO (22:00)
[2024-04-17 22:10] LABS: Platelet Count 82 X10*3/uL (160-400)
[2024-04-18 04:00] VITALS: BP 97/46; PULSE 68; RESP 16; TEMP 36.2; O2SAT 94
[2024-04-18] MEDS: Omeprazole 20 MG CAPSULE.DR PO (05:11)
[2024-04-18] MEDS: ALPRAZolam 0.5 MG TABLET PO (05:21)
[2024-04-18 06:59] LABS: Mean Corpuscular HGB Conc 30.8 g/dl (31.0-36.0); Mean Corpuscular Hemoglobin 27.5 pg (27.0-33.0); Mean Corpuscular Volume 89.3 fL (80.0-98.0); Mean Platelet Volume 11.4 fL (9.4-12.4); Red Blood Count 2.91 X10*6/uL (4.60-5.80); Red Cell Distribution Width 15.8 % (11.0-16.0); White Blood Count 3.9 X10*3/uL (4.8-10.8)
[2024-04-18 07:03] LABS: Platelet Count 86 X10*3/uL (160-400)
[2024-04-18 07:30] VITALS: BP 99/53; PULSE 72; RESP 18; TEMP 36.7; O2SAT 95
[2024-04-18 07:51] LABS: Glucose, Whole Blood 124 mg/dL (60-115)
[2024-04-18] MEDS: 0.9 % Sodium Chloride Flush 3 ML SYRINGE IVFLUSH ×2 (08:58→08:59)
[2024-04-18] MEDS: Finasteride 5 MG TABLET PO (09:02)
[2024-04-18 09:03] VITALS: BP 103/52
[2024-04-18] MEDS: Bumetanide 1 MG TABLET PO (09:03)
[2024-04-18 09:04] VITALS: BP 103/52; PULSE 70
[2024-04-18] MEDS: Tamsulosin HCL 0.4 MG CAPSULE PO (09:04)
[2024-04-18] MEDS: carvediloL 6.25 MG TABLET PO (09:04)
[2024-04-18 09:05] VITALS: BP 103/52
[2024-04-18] MEDS: Ferrous Sulfate 324 MG TABLET.DR PO (09:05)
[2024-04-18] MEDS: Spironolactone 25 MG TABLET PO (09:05)
[2024-04-18] MEDS: Gabapentin 300 MG CAPSULE PO (09:05)
[2024-04-18] MEDS: Empagliflozin 10 MG TABLET PO (09:05)
[2024-04-18] MEDS: Ezetimibe 10 MG TABLET PO (09:05)
[2024-04-18] MEDS: Lactulose 20 GM/30 ML SOLUTION PO (09:06)
[2024-04-18 09:47] VITALS: BP 103/52
--- NOTE | 2024-04-18 10:12 | PM.DS ---
DS: Providers Provider Date of Service: 04/18/24 Date of admission: 04/14/24 15:50 Primary care physician: Chao Lynne MD Consults: 04/15/24 20:24 Consult to Wound Care Routine Reason for consultation: stage 2 to left souza redness to sacrum,nas bruises Has provider been notified: No 04/16/24 08:57 Consult to Psychiatry Routine Consulting Provider: Psych Covering Reason for consultation: assess capacity Has provider been notified: No 04/18/24 07:22 Consult to Hematology / Oncology Routine Consulting Provider: [facility] [place]ology Reason for consultation: pancytopenenia DS: Diagnosis Discharge Diagnosis (1) Acute on chronic anemia: Status: Acute DS: Summary Hospital Course Hospital Course: Chief Complaint: Fall This 79-year-old male has a complex medical history including 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 He presents to the emergency department following a fall. He reports that he was walking with a walker when he tripped and fell, hitting his head and sustaining a laceration and scalp hematoma, as well as a skin tear on the left elbow. There was no loss of consciousness (LOC), and he reports no dizziness prior to the fall. There was no hypoglycemia. The patient has slurred speech, which he attributes to recent dental work, although his reports that it has worsened. A head CT shows no acute findings, and a cervical spine CT shows no fracture or dislocation, and he no longer requires a cervical collar. He has no focal neurological deficits. Hospital course: # Mechanical fall, had small scalp hematoma. Imaging showed no acute findings. PT saw him and recommends short-term rehab, unfortunately, he is refusing to go to rehab. # Slurred speech, CT head negative. According to the patient, ongoing since dental work-up, possible component of UTI and Benzo use?at this time, he appears to be at his baseline. # Elevated ammonia?likely early hepatic encephalopathy, no confusion at the moment, continue lactulose. # UTI?started Ceftriaxone 04/14, continue, culture negative, has completed 3 days of Anatibitios # Back pain?x-ray of back (lumbar and thoracic) no fracture. Related to fall and resolved. # CKD 3B?stable. # Chronic anemia, requiring periodic transfusions. His blood count has dropped to hemoglobin of 6 and has been transfused 1 unit of RBC on 04/17 with improvement to 8, which is within his baseline. He has pancytopenia related to cirrhosis of the liver and low platelet count. He is followed in the hematology clinic and gets periodic transfusions. Aspirin stopped due to low platelets. # Hepatic cirrhosis complicated by esophageal varices and ascites. - Continue meds: bumex, aldactone, lactulose, coreg. Torsemide has been stopped due to low BPs. # Thrombocytopenia?chronic due to cirrhosis. Stopped ASA due to nose bleed and low platelets, follow # Insulin-dependent type 2 diabetes. He is on multiple meds including Tresiba, Farsiga, Trulicity, and Humulin R 20 TID reportedly. While in the hospital, he is given sliding scale insulin, Lantus (equivalent of Tresiba), and Jardiance. - Fasting blood sugar is 124, and blood sugars range from 100s to 200s. I am of the opinion that 20 units of Humulin R TID a day, which has not been on during hospitalization, with stable blood pressure, may be too much insulin and risk of hypoglycemia, and recommend insulin Humalog by sliding scale in addition to the other meds. His hemoglobin A1C is 6.2 as of 04/18/2024. Received Trulicity 04/18/24 # CAD/HLD - Statin, Coreg, ASA stopped due to nose bleed and low platelets. # BPH - Continue tamsulosin, finasteride. # Diabetic 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 - Hold gabapentin given sedation/encephalopathy. # ANUJA on CPAP - CPAP at bedtime. Time Attestation Discharge Coordination Time (in mins): 35 Quality: Safe Use of Opioids Does Pt have an Active Cancer Diagnosis on the Problem List?: No Quality: Stroke Does the patient have a stroke diagnosis?: No Physical Exam Vital Signs: Vital Signs: Last Vital Signs Temp 98.1 F 04/18/24 07:30 Pulse 70 04/18/24 09:04 Resp 18 04/18/24 07:30 BP 103/52 L 04/18/24 09:47 Pulse Ox 95 04/18/24 07:30 O2 Del Method Room Air 04/18/24 07:30 BMI result Body Mass Index 27.5 DS: Data Data Completed and Pending Completed studies during hospitalization [Text1]: Procedures Destruction of Bladder Neck, Via Natural or Artificial Opening Endoscopic (06/17/22) Excision of Duodenum, Via Natural or Artificial Opening Endoscopic, Diagnostic (01/25/24) Extirpation of Matter from Bladder, Via Natural or Artificial Opening Endoscopic (06/17/22) Occlusion of Esophageal Vein with Extraluminal Device, Via Natural or Artificial Opening Endoscopic (01/25/24) Transfusion of Nonautologous Red Blood Cells into Peripheral Vein, Percutaneous Approach (01/25/24) Labs on day of discharge: Laboratory Results - last 24 hr 04/14/24 04/17/24 04/17/24 11:42 09:56 11:30 WBC 3.8 L RBC 2.52 L Hgb 6.9 L* Hct 22.5 L MCV 89.3 MCH 27.4 MCHC 30.7 L RDW 16.4 H Plt Count 92 L MPV 10.2 Absolute Nucleated RBC 0.000 Nucleated RBC % (auto) 0.0 Sodium 137 Potassium 4.2 Chloride 107 Carbon Dioxide 21 L Anion Gap 13 BUN 53 H Creatinine 1.47 H Estim Creat Clear Calc 39.4 Estimated GFR 46 POC Glucose 194 H Random Glucose 215 H Calcium 7.6 L D Blood Type A Positive Antibody Screen NEGATIVE Crossmatch See Detail 04/17/24 04/17/24 04/17/24 12:40 16:07 19:52 WBC RBC Hgb Hct MCV MCH MCHC RDW Plt Count MPV Absolute Nucleated RBC Nucleated RBC % (auto) Sodium Potassium Chloride Carbon Dioxide Anion Gap BUN Creatinine Estim Creat Clear Calc Estimated GFR POC Glucose 211 H 310 H Random Glucose Calcium Blood Type A Positive Antibody Screen NEGATIVE Crossmatch See Detail 04/17/24 04/18/24 04/18/24 21:37 05:53 07:34 WBC 3.8 L 3.9 L RBC 2.95 L 2.91 L Hgb 8.2 L 8.0 L Hct 26.2 L 26.0 L MCV 88.8 89.3 MCH 27.8 27.5 MCHC 31.3 30.8 L RDW 16.0 15.8 Plt Count 82 L 86 L MPV 9.7 11.4 Absolute Nucleated RBC 0.000 0.000 Nucleated RBC % (auto) 0.0 0.0 Sodium Potassium Chloride Carbon Dioxide Anion Gap BUN Creatinine Estim Creat Clear Calc Estimated GFR POC Glucose 124 H Random Glucose Calcium Blood Type Antibody Screen Crossmatch Preliminary micro results at discharge 04/14/24 15:41 Blood Culture - Preliminary Blood - Venous No growth after 48 hours. 04/14/24 15:29 Blood Culture - Preliminary Blood - Venous No growth after 48 hours. Discharge Plan Discharge Anticipated Discharge Date/Time: 04/18/24 10:15 Patient Disposition: er [facility] Discharge Diagnosis: Fall, acute blood loss anemia, uti Referrals: [facility] [Outside] - 1 Week Chao Lynne MD [Primary Care Provider] - 1 Week Discharge Medications: New insulin lispro [Admelog U-100 Insulin lispro] 100 unit/mL Solution See Protocol subcut QIDACHS Qty: 10 0RF Protocol: Insulin Correction Scale Less than or equal to 110 ---- Give (units): 0 111 to 150 Give (units): 0 151 to 200 Give (units): 2 201 to 250 Give (units): 4 251 to 300 Give (units): 6 301 to 350 Give (units): 8 Greater than 350 Give (units): 10 Call MD if Blood Glucose > : 350 Rx Instructions: BG <111 0 units, 111-150 - 0 units, 151-200 2 units, 201-250 4 units, 251-300 6 units, 301-350 8 units, >350 10 units Continued (DME) FreeStyle Marleni 14 Day [place] Mis See Rx Instructions .Route Qty: 1 0RF Rx Instructions: As directed (DME) FreeStyle Marleni 14 Day Sensor Kit See Rx Instructions .Route Qty: 2 2RF Rx Instructions: As directed atorvastatin 80 mg tablet 40 mg PO BEDTIME Qty: 90 0RF (DME) FreeStyle Test Strip See Rx Instructions .Route Qty: 100 3RF Rx Instructions: three times per day (DME) blood-glucose meter [FreeStyle Lite Meter] Kit See Rx Instructions .Route Qty: 1 0RF Rx Instructions: As directed carvedilol 6.25 mg tablet 6.25 mg PO BID 30 Days Qty: 60 3RF Rx Instructions: must administer with a meal/food Farxiga 10 mg tablet 10 mg PO DAILY 30 Days Qty: 30 3RF ezetimibe [Zetia] 10 mg tablet 10 mg PO DAILY Qty: 30 3RF ferrous sulfate 325 mg (65 mg iron) tablet,delayed release (DR/EC) 325 mg PO DAILY Qty: 90 0RF finasteride [Proscar] 5 mg tablet 5 mg PO DAILY 90 Days Qty: 90 1RF insulin degludec [Tresiba FlexTouch U-100] 100 unit/mL (3 mL) insulin pen 6 unit subcut BEDTIME 30 Days Qty: 15 1RF pantoprazole 40 mg tablet,delayed release (DR/EC) 40 mg PO DAILY Qty: 30 3RF (DME) pen needle, diabetic [BD Gifty 2nd Gen Pen Needle] 32 gauge x 5/32 needle See Rx Instructions .MEDSUPPLY Qty: 150 5RF Rx Instructions: 4 times a day tamsulosin 0.4 mg capsule 0.4 mg PO DAILY 90 Days Qty: 90 1RF (DME) pen needle, diabetic [BD Ultra-Fine Gifty Pen Needle] 32 gauge x 5/32 needle See Rx Instructions .ROUTE .MEDSUPPLY Qty: 50 3RF Rx Instructions: As directed alprazolam 0.5 mg tablet 0.5 mg PO BID PRN (Reason: Anxiety) 30 Days Qty: 60 1RF Hold Instructions: Resume on 02/09/24. gabapentin 300 mg capsule 300 mg PO BID 30 Days Qty: 60 3RF (DME) Prodigy No Coding Strip See Rx Instructions .Route Qty: 100 6RF Rx Instructions: Test 3 times a day (DME) blood-glucose meter [Prodigy Pocket Meter] Kit See Rx Instructions .Route Qty: 1 0RF Rx Instructions: Testing three times per day Trulicity 0.75 mg/0.5 mL pen injector 0.75 mg SUBCUT MO Qty: 2 0RF spironolactone 25 mg tablet 25 mg PO DAILY 30 Days Qty: 30 3RF cyanocobalamin (vitamin B-12) 500 mcg tablet 1,000 mcg PO BEDTIME Qty: 90 0RF bumetanide 1 mg tablet 1 mg PO DAILY lactulose 10 gram/15 mL solution 30 ml PO BID (DME) lancets [FreeStyle Lancets] 28 gauge misc See Rx Instructions .Route Qty: 100 6RF Rx Instructions: As directed three times per day (DME) blood pressure test kit-large Kit See Rx Instructions .Route Qty: 1 0RF Rx Instructions: As directed Discontinued aspirin [Adult Aspirin Regimen] 81 mg tablet,delayed release (DR/EC) 81 mg PO DAILY 30 Days Qty: 30 3RF Hold Instructions: Resume on 11/13/23. torsemide 20 mg tablet 40 mg PO DAILY 30 Days Qty: 60 3RF Humulin R U-500 (Conc) Kwikpen 500 unit/mL (3 mL) insulin pen 20 unit subcut TIDAC Discharge Orders: Discharge Order (Routine); Ordered 04/18/24 Ordered By: Néstor Terry Diet: Diabetic diet Activity on Discharge: As tolerated Stand Alone Forms: Patient Portal Discharge page Print Language: Bahamian Care Plan Goals: fall prevention, management of anemia anc chornic liver disease Health Concerns: Fall and risks of fall, chronic anemia Cirrhosis of the liver UTI Plan of Treatment: follow up with your doctor in a week, call for apointment stop taking Aspirin stap taking Torsemide Humalin R replacement with Admelog sliding scale continue all other medications Check CBC weekly, wednesdays Assessment: See above Discharge Date/Time: 04/18/24 14:50
[2024-04-18 11:23] LABS: Glucose, Whole Blood 210 mg/dL (60-115)
[2024-04-18 11:51] LABS: Estimated Average Glucose 131 mg/dL; Hemoglobin A1c % 6.2 % (<6.0)
[2024-04-18] MEDS: Insulin Lispro 100 UNIT/ML 3 ML VIAL SUBCUT (12:18)
--- NOTE | 2024-04-18 12:24 | MHC.CM.PN ---
IMM 04/16/24 Per MD rounds DC today. SPoke with HCP Octavio quezada DC. He accepts the private room at [facility]. The patient is agreeable to STR. He will transport via S 2pm.
--- NOTE | 2024-04-18 13:36 | P.CNHO_ITS ---
Subjective - Subjective Chief complaint: Fall Patient: known to practice within the last 3 years Consult date: 04/18/24 Primary Care Provider: Chao Lynne MD Medical Summary: Diagnosis: Iron deficiency anemia Mr. Lopes has an extensive medical history, with the frequent hospitalizations in the last 2 years. He has a long-standing history of type 2 diabetes mellitus, coronary artery disease. In August 2012, he was diagnosed with prostate cancer, underwent laser surgery, followed by radiation therapy, which he completed in April 2014. He is currently on Trelstar (LHRH agonist therapy) every 6 months under the care of Dr. Dudley. He was admitted in June for rectal bleeding and anemia. This was diagnosed as radiation proctitis. He has a history of blood transfusion in 2012 when he was admitted for Staphylococcus aureus sepsis and anemia. He was told of leukopenia for many years and reviewing DiObex, his white count has ranged from 3 to 4 thousand dating back to 2003 with normal counts in 2005. Since 2006 or 2007, it has declined and more recently since 2012, it has stayed under 5000 consistently. He has developed thrombocytopenia since 2012. Prior to that, platelet counts have been normal. His hemoglobin has always been low; back in 2013 it was in the 13 g/dL range but since 2005 it has gone up and down ranging between been 10 to 11 g/dL and in 2013 it has been below 10 g/dL. He does have a history of excess alcohol consumption for many years and he quit in 2013. Ultrasound of the abdomen in March 2014 revealed enlarged liver, showing diffuse liver disease and splenomegaly with spleen size of 19 cm. Hematology consultation on August 23, 2014 revealed anemia with a hemoglobin of 9.4 g/dL, white count of 2.3, platelets of 103,000. Iron studies showed a ferritin of 8 with iron saturation of 20%. LDH normal. LFTs normal. Vitamin B12 and folate levels normal. Beta-2 microglobulin slightly elevated at 3.05. Serum protein electrophoresis revealed monoclonal protein, which was too small to quantitate. Immunoglobulin levels were normal. Rheumatoid factor less than 15 in the past. Repeat ultrasound of abdomen performed September 11, 2014 showed hepatosplenomegaly similar to previous exam. Dilated portal vein suggestive of portal hypertension. Thickened, edematous gallbladder similar to March 2014 exam. The patient was admitted again in May 2015 with symptoms of painful hematuria. He developed significant anemia with a hemoglobin dropping to 7.7 g/dL for which he received 2 to 3 units of blood transfusion. 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 The fall happened because of loss of balance, as he was rushing to get ready to go to his [id number] wake. He has had no loss of consciousness. No symptoms such as chest pain, dizziness or shortness of breath before the fall. He has been in his usual state of health. He continues to live at home with his , a son lives close by in [place]. He has had help to assist in his 's care and he engages somebody to drive him for appointments. Review of Systems - Constitutional Reports as per HPI, Denies poor appetite, Denies weight loss - Cardiovascular Reports no additional cardiovascular complaints - Respiratory Reports no additional respiratory complaints - Gastrointestinal Reports no additional gastrointestinal complaints [facility] Medical History: Medical History (Last Reviewed 04/15/24 @ 08:04 by Sarah Vela, PT) Abscess in epidural space of cervical spine Acute lower gastrointestinal bleeding Anemia Aortic stenosis CAD (coronary artery disease) Chronic fatigue COVID-19 vaccine series completed Diabetes type 2, uncontrolled Diabetic nephropathy associated with type 2 diabetes mellitus Diabetic 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 associated with type 2 diabetes mellitus Difficulty walking DMII (diabetes mellitus, type 2) KOEHLER (dyspnea on exertion) Dyslipidemia Esophageal varices without bleeding Fracture of left humerus GERD (gastroesophageal reflux disease) History of prostate cancer HTN (hypertension) Hyperglycemia Hypertension IBS (irritable colon syndrome) Infective endocarditis Iron deficiency anemia senior care (current) use of insulin On beta kayy at home ANUJA on CPAP Osteomyelitis of cervical spine Polyneuropathy Prostate cancer Spinal stenosis Streptococcal bacteremia Symptomatic anemia Varices of esophagus determined by endoscopy Family History: Family History (Last Reviewed 04/14/24 @ 11:22 by Jesse Plam MD) Father CVD (cardiovascular disease) Past heart attack Mother CVD (cardiovascular disease) Brain cancer Heart problem Daughter Breast cancer Sister Breast cancer Son Alive and well Family/Other Myocardial infarction Liver cancer Surgical History: Surgical History (Last Reviewed 04/15/24 @ 08:04 by Sarah Vela, PT) H/O cataract extraction History of colonoscopy History of heart artery stent History of surgery History of surgery History of transurethral resection of prostate Hx of colonoscopy Hx of endoscopy Hx of esophagogastroduodenoscopy S/P infectious endocarditis Social History: Social History (Last Reviewed 04/14/24 @ 11:22 by Jesse Palm MD) Living Situation History: Household Members: Spouse Household Members Other:: Myesha Housing: House Are you a primary managed care analyst to a significant other at home: No Do you presently have visiting nurse or other home services: Yes Tobacco History: Patient Tobacco Use Status: Never used Tobacco e-Cigarette/Vaping Use: Never Used Second Hand Smoke Exposure: No Advance Directives: Advance Directives Date on File: 08/31/23 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 Current occupational status: retired Home Medications and Allergies Current Medications: Current Medications Acetaminophen (Acetaminophen 325 Mg Tablet) 650 mg PO Q6H PRN PRN Reason: Pain, Mild (Pain Scale 1-3), fever or headache Alprazolam (Alprazolam 0.5 Mg Tablet) 0.5 mg PO BID PRN PRN Reason: Anxiety Last Admin: 04/18/24 05:21 Dose: 0.5 mg Atorvastatin Calcium (Atorvastatin Calcium 40 Mg Tablet) 40 mg PO BEDTIME PANFILO Last Admin: 04/17/24 22:00 Dose: 40 mg Bumetanide (Bumetanide 1 Mg Tablet) 1 mg PO DAILY [facility]; Protocol Last Admin: 04/18/24 09:03 Dose: 1 mg Calcium Carbonate (Calcium Carbonate 750 Mg Tab.Chew) 750 mg PO Q4H PRN PRN Reason: Heartburn Carvedilol (Carvedilol 6.25 Mg Tablet) 6.25 mg PO BID [facility]; Protocol Last Admin: 04/18/24 09:04 Dose: 6.25 mg Cyanocobalamin (Cyanocobalamin (Vitamin B-12) 1,000 Mcg Tablet) 1,000 mcg PO BEDTIME [facility] Last Admin: 04/17/24 22:00 Dose: 1,000 mcg Ezetimibe (Ezetimibe 10 Mg Tablet) 10 mg PO DAILY PANFILO Last Admin: 04/18/24 09:05 Dose: 10 mg Empagliflozin (Empagliflozin 10 Mg Tablet) 10 mg PO DAILY [facility] Last Admin: 04/18/24 09:05 Dose: 10 mg Ferrous Sulfate (Ferrous Sulfate 324 Mg Tablet.) 324 mg PO DAILY [facility] Last Admin: 04/18/24 09:05 Dose: 324 mg Finasteride (Finasteride 5 Mg Tablet) 5 mg PO DAILY [facility] Last Admin: 04/18/24 09:02 Dose: 5 mg Gabapentin (Gabapentin 300 Mg Capsule) 300 mg PO BID [facility] Last Admin: 04/18/24 09:05 Dose: 300 mg Glucose (Glucose Gel 15 Gm Gel..Gram.) 15 gm PO Q15M PRN; Protocol PRN Reason: per Hypoglycemia Standing Ord. Dextrose (D10) 250 mls @ 750 mls/hr IV Q15M PRN; Protocol PRN Reason: per Hypoglycemia Standing Ord. Ceftriaxone Sodium 1 gm/ (Sodium Chloride) 50 mls @ 100 mls/hr IV Q24H [facility] Last Infusion: 04/17/24 13:58 Dose: Infused Insulin Glargine (Insulin Glargine,Hum.Rec.Anlog 100 Unit/Ml 10 Ml Vial) 6 unit SUBCUT BEDTIME [facility] Last Admin: 04/17/24 22:00 Dose: 6 unit Insulin Human Lispro (Insulin Lispro 100 Unit/Ml 3 Ml Vial) 0 unit SUBCUT QIDACHS [facility]; Protocol Last Admin: 04/18/24 12:18 Dose: 4 unit Lactulose (Lactulose 20 Gm/30 Ml Solution) 20 gm PO BID [facility] Last Admin: 04/18/24 09:06 Dose: 20 gm Magnesium Hydroxide (Milk Of Magnesia 30 Ml Oral.Susp) 30 ml PO DAILY PRN PRN Reason: Constipation Melatonin (Melatonin 3 Mg Tablet) 6 mg PO BEDTIME PRN PRN Reason: Insomnia Morphine Sulfate (Morphine Sulfate 2 Mg/Ml Cartridge) 1 mg IVPUSH Q6H PRN; Protocol PRN Reason: Pain, Severe (Pain Scale 7-10) Last Admin: 04/14/24 18:04 Dose: 1 mg Non-Formulary Medication (Dulaglutide [Trulicity]) 0.75 mg SUBCUT MO [facility] Last Admin: 04/18/24 10:12 Dose: 0.75 mg Omeprazole (Omeprazole 20 Mg Capsule.) 20 mg PO DAILY@0630 [facility] Last Admin: 04/18/24 05:11 Dose: 20 mg Ondansetron HCl (Ondansetron Hcl 4 Mg/2 Ml Vial) 4 mg IVPUSH Q8H PRN PRN Reason: Nausea and Vomiting Polyethylene Glycol (Polyethylene Glycol 3350 17 Gm Powd.Pack) 17 gm PO DAILY PRN PRN Reason: Constipation Sodium Chloride (0.9 % Sodium Chloride Flush 3 Ml Syringe) 3 ml IVFLUSH QSHIFT [facility] Last Admin: 04/18/24 08:59 Dose: 3 ml Spironolactone (Spironolactone 25 Mg Tablet) 25 mg PO DAILY [facility]; Protocol Last Admin: 04/18/24 09:05 Dose: 25 mg Tamsulosin HCl (Tamsulosin Hcl 0.4 Mg Capsule) 0.4 mg PO DAILY [facility] Last Admin: 04/18/24 09:04 Dose: 0.4 mg Home Medications ?Medication ?Instructions ?Recorded ?Confirmed ?Type bumetanide 1 mg tablet 1 mg PO DAILY 04/14/24 04/14/24 History lactulose 10 gram/15 mL oral 30 ml PO BID 04/14/24 04/14/24 History solution Allergies Allergy/AdvReac Type Severity Reaction Status Date / Time KARL Inhibitors Allergy Severe Angioedema Verified 04/14/24 10:39 dextran 40 [DEXTRAN 40] Allergy Intermediate tachycardia Verified 04/14/24 10:39 latex [LATEX] Allergy Mild BLISTERS Verified 04/14/24 10:39 lisinopril [From Zestril] Allergy Mild Unknown Verified 04/14/24 10:39 Iodinated Contrast Media Allergy Unknown UNKNOWN Verified 04/14/24 10:39 [CONTRAST,IV] Physical Exam Vital signs: Vital Signs Temp 98.1 F 04/18/24 07:30 Pulse 70 04/18/24 09:04 Resp 18 04/18/24 07:30 BP 103/52 L 04/18/24 09:47 Pulse Ox 95 04/18/24 07:30 O2 Del Method Room Air 04/18/24 07:30 Intake & Output 04/17/24 04/18/24 04/18/24 18:59 06:59 18:59 Intake Total 633 / 1673 1040 / 1673 Output Total 300 / 1200 900 / 1200 Balance 333 / 473 140 / 473 Urine Output (Average ml/kg/hr) 0.30 0.89 0.89 Intake: Intake, Oral Amount 420 / 1460 1040 / 1460 Intake (Blood Product) Amount 138 / 138 Red Blood Cells (E0336) Unit 138 / 138 [id number] Intake, IV Amount 75 / 75 0.9 % Sodium Chloride 100 ml @ 25 / 25 100 mls/hr IV ONCE ONE Rx#: [id number] cefTRIAXone sodium 1 gm In 0.9 50 / 50 % Sodium Chloride 50 ml @ 100 mls/hr IV Q24H [facility] Rx#: [id number] Output: Output, Urine Amount 300 / 1200 900 / 1200 Other: Meal Refused No NPO No Breakfast % Eaten 100% Lunch % Eaten 100% Dinner % Eaten 100% Number of Unmeasured Voids 2 Number of Bowel Movements 0 Urine Urinal Urinal Urine Color Yellow Yellow Last Bowel Movement 04/16/24 04/17/24 04/17/24 Weight 84.6 kg - Constitutional Present: no acute distress - Routine HEENT Exam Head: Present: normal inspection Eye: Present: EOMI, PERRL - Routine Neck Exam Present: supple. Absent: lymphadenopathy - Routine Respiratory Exam Present: CTAB. Absent: accessory muscle use - Routine Cardiovascular Exam Cardiovascular: Present: RRR, S1, S2 - Routine Abdominal Exam Present: soft - Routine Skin Exam Present: intact - Routine Neurological Exam Present: alert, oriented X3 Hem/Onc Consult Result - Labs CBC & Chem 7: 04/18/24 05:53 04/17/24 09:56 Labs: Short CBC 04/17/24 04/18/24 Range/Units 21:37 05:53 WBC 3.8 L 3.9 L (4.8-10.8) X10*3/uL Hgb 8.2 L 8.0 L (14.0-18.0) g/dl Hct 26.2 L 26.0 L (42.0-52.0) % Plt Count 82 L 86 L (160-400) X10*3/uL Assessment and Plan Patient Active problem list reviewed?: Yes (1) Pancytopenia Status: Chronic Assessment and plan: 1. A 79-year-old male with pancytopenia. He has been following up with me since 2013. He has chronic liver cirrhosis associated with portal hypertension, gastropathy and variceal bleeding. He receives blood transfusions almost twice a month at this time. Developed upper GI bleeding related to esophageal varices. He has undergone banding. He has been on IV Ferrlecit intermittently. No evidence of HCC or other liver lesions. 3. Vitamin B12 deficiency, pernicious anemia. He is positive for intrinsic factor antibodies. He is on oral B12 supplementation and adequate blood levels. 3. Renal insufficiency. He is stage 3 kidney disease which could be contributing to his anemia. He received Procrit intermittently. His blood counts at this time are stable. He has been getting intermittent blood transfusions. He says that 3 weeks ago he underwent endoscopy at [facility] and had banding of varices. He has been scheduled for colonoscopy in April. He is in his usual state of health, he was last transfused in the clinic a week ago. I did discuss with him that his anemia has worsened significantly. He has a refused bone marrow biopsies many times in the past. He is transfusion dependent. He has multifactorial anemia, underlying bone marrow problem such as MDS is also a possibility. I thank you for this consultation. - Time Spent With Patient Time Spent with Patient (in minutes): 15
[2024-04-18] MEDS: cefTRIAXone sodium 1 GM in 0.9 % Sodium Chloride 50 ML IV (13:44)
== END 2024-04-18 14:50 | disposition skilled nursing facility (03) | DRG 689 ==
LOC: HO.ED 14:45 → HO.IMC 04-15 07:57 → HO.EDOVER 04-15 20:01 → HO.S3 04-15 20:01
PROVIDERS: Admitting Provider Internal Medicine; Emergency Provider Emergency Medicine; PCP Internal Medicine; Visit Provider Internal Medicine
DX: N39.0 Urinary tract infection, site not specified (principal); I85.11 Secondary esophageal varices with bleeding; D62 Acute posthemorrhagic anemia; R18.8 Other ascites; D61.818 Other pancytopenia; K76.6 Portal hypertension; E72.20 Disorder of urea cycle metabolism, unspecified; I25.10 Atherosclerotic heart disease of native coronary artery without angina pectoris; E11.42 Type 2 diabetes mellitus with diabetic 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; N18.32 Chronic kidney disease, stage 3b; E11.22 Type 2 diabetes mellitus with diabetic chronic kidney disease; D63.1 Anemia in chronic kidney disease; K31.89 Other diseases of stomach and duodenum; K76.82 Hepatic encephalopathy; S00.03XA Contusion of scalp, initial encounter; W19.XXXA Unspecified fall, initial encounter; G47.33 Obstructive sleep apnea (adult) (pediatric); D69.59 Other secondary thrombocytopenia; K74.60 Unspecified cirrhosis of liver; E78.5 Hyperlipidemia, unspecified; N40.0 Benign prostatic hyperplasia without lower urinary tract symptoms; F01.50 Vascular dementia, unspecified severity, without behavioral disturbance, psychotic disturbance, mood disturbance, and anxiety; Z95.5 Presence of coronary angioplasty implant and graft; Z91.040 Latex allergy status; Z91.041 Radiographic dye allergy status; Z85.46 Personal history of malignant neoplasm of prostate; Z79.4 Long term (current) use of insulin; Z79.82 Long term (current) use of aspirin; Z79.85 Long-term (current) use of injectable non-insulin antidiabetic drugs; Z79.899 Other long term (current) drug therapy
CPT/HCPCS: 36415; 36430; 70450; 71045; 72070; 72100; 72125; 80048; 80053; 80076; 81001; 82140; 82272; 82947; 83036; 83690; 83880; 84484; 85025; 85027; 85610; 85730; 86850; 86900; 86901; 86923; 87040; 87086; 93005; 97162; 97530; 99285; J0696; J2270; P9016

== ENCOUNTER → 2024-04-14 11:14 | Outpatient (BNV) | payer MEDICARE, SELFPAY | PROVIDERS: Admitting Provider Internal Medicine; Emergency Provider Emergency Medicine; PCP Internal Medicine; Visit Provider Internal Medicine Cardiovascular Disease | DX: R94.31 Abnormal electrocardiogram [ECG] [EKG] (principal) | CPT/HCPCS: 93010 ==

== ENCOUNTER → 2024-04-14 15:50 | Outpatient (BNV) | payer MEDICARE, SELFPAY | PROVIDERS: Admitting Provider Internal Medicine; Emergency Provider Emergency Medicine; PCP Internal Medicine; Visit Provider Internal Medicine | DX: S09.90XA Unspecified injury of head, initial encounter (principal); W19.XXXA Unspecified fall, initial encounter | CPT/HCPCS: 99223; 99232; 99239 ==

== ENCOUNTER → 2024-04-14 15:50 | Outpatient (BNV) | payer MEDICARE, SELFPAY | PROVIDERS: Admitting Provider Internal Medicine; Emergency Provider Emergency Medicine; PCP Internal Medicine; Visit Provider Internal Medicine | DX: D61.818 Other pancytopenia (principal) | CPT/HCPCS: 99222 ==

== ENCOUNTER → 2024-04-14 15:50 | Outpatient (BNV) | payer MEDICARE, SELFPAY | PROVIDERS: Admitting Provider Internal Medicine; Emergency Provider Emergency Medicine; PCP Internal Medicine; Visit Provider Social Worker | DX: R41.89 Other symptoms and signs involving cognitive functions and awareness (principal) | CPT/HCPCS: 99232 ==

== ENCOUNTER 2024-04-18 08:42 | Outpatient (REF) | payer MEDICARE, SELFPAY | END 2024-04-18 08:43 | disposition home or self-care (01) | LOC: HO.LHD 08:42 | PROVIDERS: Visit Provider Internal Medicine | DX: Z13.89 Encounter for screening for other disorder (principal) ==

== ENCOUNTER 2024-05-02 07:52 | Outpatient (REF) | payer SELFPAY ==
[2024-05-02 12:40] LABS: Basophils Percent Auto 0.9 % (0-2); Eosinophils Absolute Auto 0.2 X10*3/uL (0.0-0.4); Eosinophils Percent Auto 4.1 % (0-4); Hematocrit 28.3 % (42.0-52.0); Hemoglobin 8.6 g/dl (14.0-18.0); Imm Gran Abs Auto 0.05 X10*3/uL (0.00-0.03); Imm Gran Pct Auto 1.1 % (0.0-0.4); Lymphocytes Absolute Auto 0.3 X10*3/uL (1.2-4.9); Lymphocytes Percent Auto 6.9 % (20-40); MANUAL DIFF FLAG NO; Mean Corpuscular HGB Conc 30.4 g/dl (31.0-36.0); Mean Corpuscular Hemoglobin 27.3 pg (27.0-33.0); Mean Corpuscular Volume 89.8 fL (80.0-98.0); Mean Platelet Volume 10.2 fL (9.4-12.4); Monocytes Absolute Auto 0.6 X10*3/uL (0.1-1.2); Monocytes Percent Auto 13.8 % (2-11); Neutrophils Absolute Auto 3.4 x10*3/uL (2.0-8.3); Neutrophils Percent Auto 73.2 % (45-73); Platelet Count 143 X10*3/uL (160-400); Red Blood Count 3.15 X10*6/uL (4.60-5.80); Red Cell Distribution Width 16.1 % (11.0-16.0); White Blood Count 4.6 X10*3/uL (4.8-10.8)
== END 2024-05-02 07:53 | disposition home or self-care (01) ==
LOC: HO.LHD 07:52
PROVIDERS: Visit Provider Internal Medicine
DX: D64.9 Anemia, unspecified (principal)
CPT/HCPCS: 36415; 85025

== ENCOUNTER 2024-05-04 15:54 | Emergency (ER) | payer MEDICARE, SELFPAY ==
--- NOTE | 2024-05-04 16:06 | ED.GENADULT ---
HPI - General Adult General Chief complaint: General Medical Stated complaint: WEAKNESS,DIFF AMBULATING, COVID + Time Seen by Provider: 05/04/24 16:02 Source: patient and EMS Mode of arrival: EMS Limitations: no limitations History of Present Illness ED Provider: Nano Carrillo PA-C HPI narrative: Patient is an 79 year old assigned male at with a history of DM, pacemaker, s/p TAVR, and anemia with regular infusions presenting to the emergency department today after testing positive for COVID-19. Patient states that a visiting nurse comes regularly and today, she tested his and him for COVID-19. Patient states that his had a fever and because of that, was tested for COVID-19. Patient states that he was also tested by this visiting nurse because she was positive, not because he has symptoms. Patient states that he feels fine and only came to the hospital at the visiting nurses insistence. Patient denies any dizziness, lightheadedness, abdominal pain, nausea, vomiting, fever, chills, blurry vision, double vision, loss of vision, chest pain, difficulty breathing, shortness of breath, back pain, night sweats, pain with urination, increased urinary frequency, increased urinary urgency, blood in his urine or stool, syncope or a near syncopal episode, recent trauma or falls, bowel incontinence, bladder incontinence, or any other complaints at this time. Relieving factors: none Exacerbating factors: none Associated symptoms: denies other symptoms Treatments prior to arrival: none Related Data Home Medications ?Medication ?Instructions ?Recorded ?Confirmed bumetanide 1 mg tablet 1 mg PO DAILY 04/14/24 04/14/24 lactulose 10 gram/15 mL oral 30 ml PO BID 04/14/24 04/14/24 solution Previous Rx's ?Medication ?Instructions ?Recorded blood pressure test kit-large #1 ea 11/21/21 flash glucose scanning reader #1 ea 10/03/22 (FreeStyle Marleni 14 Day Dumas) flash glucose sensor (FreeStyle #2 ea 10/03/22 Marleni 14 Day Sensor kit) lancets 28 gauge (FreeStyle #100 ea 10/21/23 Lancets) atorvastatin 80 mg tablet 40 mg (1/2 x 80 mg) PO BEDTIME #90 03/09/24 tabs blood sugar diagnostic (FreeStyle #100 ea 03/09/24 Test strips) blood-glucose meter (FreeStyle #1 ea 03/09/24 Lite Meter kit) carvedilol 6.25 mg tablet 6.25 mg PO BID 30 days #60 tabs 03/09/24 dapagliflozin propanediol 10 mg 10 mg PO DAILY 30 days #30 tabs 03/09/24 tablet (Farxiga) ezetimibe 10 mg tablet (Zetia) 10 mg PO DAILY #30 tabs 03/09/24 finasteride 5 mg tablet (Proscar) 5 mg PO DAILY 90 days #90 tabs 03/09/24 insulin degludec 100 unit/mL (3 6 unit (0.06 mL) subcut BEDTIME 30 03/09/24 mL) subcutaneous pen ( #15 mL FlexTouch U-100 insulin) pantoprazole 40 mg tablet,delayed 40 mg PO DAILY #30 tabs 03/09/24 release pen needle, diabetic 32 gauge x #150 ea 03/09/24 (BD Gifty 2nd Gen Pen Needle) pen needle, diabetic 32 gauge x #50 ea 03/09/24 (BD Ultra-Fine Gifty Pen Needle) alprazolam 0.5 mg tablet 0.5 mg PO BID PRN Anxiety 30 days 03/10/24 #60 tabs gabapentin 300 mg capsule 300 mg PO BID 30 days #60 caps 03/10/24 blood sugar diagnostic (Prodigy No #100 ea 03/19/24 Coding strips) blood-glucose meter (Prodigy #1 ea 03/22/24 Pocket Meter kit) insulin lispro 100 unit/mL See Protocol subcut QIDACHS #10 mL 04/18/24 subcutaneous solution (Admelog U-100 Insulin lispro) cyanocobalamin (vitamin B-12) 500 1,000 mcg (2 x 500 mcg) PO BEDTIME 04/30/24 mcg tablet #90 tabs dulaglutide 0.75 mg/0.5 mL 0.75 mg (0.5 mL) subcut MO #2 mL 04/30/24 subcutaneous pen injector ([facility]) ferrous sulfate 325 mg (65 mg 325 mg PO DAILY #90 tabs 04/30/24 iron) tablet,delayed release spironolactone 25 mg tablet 25 mg PO DAILY 30 days #30 tabs 05/04/24 tamsulosin 0.4 mg capsule 0.4 mg PO DAILY 90 days #90 caps 05/04/24 Allergies Allergy/AdvReac Type Severity Reaction Status Date / Time KARL Inhibitors Allergy Severe Angioedema Verified 05/04/24 16:18 dextran 40 [DEXTRAN 40] Allergy Intermediate tachycardia Verified 04/14/24 10:39 latex [LATEX] Allergy Mild BLISTERS Verified 04/14/24 10:39 lisinopril [From Zestril] Allergy Mild Unknown Verified 04/14/24 10:39 Iodinated Contrast Media Allergy Unknown UNKNOWN Verified 04/14/24 10:39 [CONTRAST,IV] Review of Systems Constitutional: Constitutional: Reports no additional constitutional complaints, Denies chills, Denies fever(s) and Denies night sweats Eyes: Eyes: Reports no additional eye complaints, Denies blurry vision, Denies change in vision, Denies diplopia, Denies eye discharge, Denies loss of vision and Denies eye pain ENT: Denies dizziness Cardiovascular: Cardiovascular: Reports no additional cardiovascular complaints, Denies chest pain, Denies lightheadedness, Denies Loss of Consciousness and Denies dyspnea Respiratory: Respiratory: Reports no additional respiratory complaints and Denies dyspnea Gastrointestinal: Gastrointestinal: Reports no additional gastrointestinal complaints, Denies abdominal pain, Denies melena, Denies hematochezia, Denies change in bowel habits and Denies change in stool character Genitourinary: Genitourinary: Reports no additional male genitourinary complaints, Denies hematuria, Denies oliguria, Denies difficulty urinating, Denies dysuria, Denies urinary frequency, Denies urinary hesitancy, Denies urinary incontinence and Denies urinary urgency Musculoskeletal: Musculoskeletal: Reports no additional musculoskeletal complaints, Denies numbness and Denies tingling Neurologic: Denies dizziness, Denies loss of vision, Denies numbness and Denies tingling Psychiatric: Psychiatric: Reports no additional psychiatric complaints Endocrine: Endocrine: Reports no additional endocrine complaints Hematologic/Lymphatic: Hematologic/Lymphatic: Reports no additional hematologic/lymphatic complaints Allergic/Immunologic: Allergic/Immunologic: Reports no additional allergic/immunologic complaints PMFSH Past Medical History Attestation statement: The following information was validated with the patient. 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 Diabetes type 2, uncontrolled Varices of esophagus determined by endoscopy Esophageal varices without bleeding KOEHLER (dyspnea on exertion) Chronic fatigue Iron deficiency anemia CAD (coronary artery disease) ANUJA on CPAP Prostate cancer Spinal stenosis On beta kayy at home IBS (irritable colon syndrome) Aortic stenosis HTN (hypertension) Polyneuropathy GERD (gastroesophageal reflux disease) Surgical History S/P infectious endocarditis H/O cataract extraction Hx of endoscopy History of colonoscopy Hx of esophagogastroduodenoscopy Hx of colonoscopy History of surgery History of transurethral resection of prostate History of surgery History of heart artery stent Family History Family History Father CVD (cardiovascular disease) Past heart attack Mother CVD (cardiovascular disease) Brain cancer Heart problem Daughter Breast cancer Sister Breast cancer Son Alive and well Family/Other Myocardial infarction Liver cancer Social History Social History Household Members: Spouse Household Members Other:: Myesha Housing: House Are you a primary child adolescent care to a significant other at home: No Do you presently have visiting nurse or other home services: Yes Alcohol intake: never Patient Tobacco Use Status: Never used Tobacco e-Cigarette/Vaping Use: Never Used Second Hand Smoke Exposure: No Advance Directives: Yes Advance Directives on File: Yes Advance Directives Date on File: 08/31/23 service: Yes Current occupational status: retired Cognitive needs: No Hearing needs: No Vision needs: Yes Physical Exam ED Vital Signs: Vital Signs - 24 hr 05/04/24 16:15 05/04/24 17:46 Temperature 98.3 F 97.9 F Pulse Rate 91 70 Respiratory Rate 16 16 Blood Pressure 113/51 L 123/57 L Pulse Oximetry 97 97 Oxygen Delivery Method Room Air Room Air BMI result Body Mass Index 26.7 Const General: cooperative, no acute distress, alert and awake Nutritional Appearance: well nourished Orientation/consciousness: patient oriented x3 Limitations: no limitations HENMT Head: Yes normal to inspection and Yes atraumatic Ears: hearing grossly normal bilaterally and external ears normal General nose exam: Normal external nose present, no nasal discharge noted and no epistaxis Face and sinus: Yes normal facial exam, No abrasion and No laceration Mouth: Normal oral and palatal mucosa present, no drooling and no muffled voice Eyes General: appearance normal, both eyes and all related structures Periorbital: periorbital findings normal Eyelids: Yes eyelids normal Conjunctivae: conjunctivae normal Pupils: Equal, round and reactive pupils present EOM: EOMs intact bilaterally Neck Neck: Yes normal visual inspection, Yes full ROM and Yes no lymphadenopathy Chest Chest palpation & inspection: normal inspection of the chest Resp Effort & Inspection: normal respiratory effort and able to speak in complete sentences GI Inspection: Yes normal to inspection Neuro General: patient oriented x3 and moves all extremities Cranial nerves: Yes Equal, round and reactive pupils present Cognition (Neuro): normal cognition Extrem General: Yes normal to inspection, Yes full ROM and Yes capillary refill normal Psych Appearance: grossly normal Mental Status: mental status grossly normal Affect: normal affect Attitude: cooperative Thought process: Normal thought process present Thought content: Normal thought content present Insight: Good insight present (Psych) Medical Decision Making Medical Decision Making MDM Narrative: Patient is an 79 year old assigned male at with a history of DM, pacemaker, s/p TAVR, and anemia with regular infusions presenting to the emergency department today after testing positive for COVID-19. Patient's physical exam showed an individual who is unsteady on his feet at baseline but otherwise unremarkable. Patient's POC glucose was elevated however, this is chronic for the patient and he confirms his numbers are often there. Patient declined all additional testing and is AOx3. I called and spoke to the patient's son and healthcare proxy, Octavio. He stated he was comfortable with the patient going home if that's what he wanted to do. I explained my physical exam findings as well as all test results to the patient. I answered all questions asked by the patient. I stressed the importance of the patient taking his medication as directed (either prescribed or as the over the counter packaging recommends). I stressed the importance of the patient following up with his primary care provider. I stressed the importance of the patient returning to the emergency department immediately if his symptoms were to worsen or if he were to develop any dizziness, shortness of breath, difficulty breathing, chest pain, blurry vision, loss of vision, nausea, vomiting, abdominal pain, fever, chills, back pain, or any other complaints. Patient verbalized agreement and understanding with this treatment plan and discharge. Differential Diagnosis Differential Diagnoses: The differential diagnosis associated with the presentation includes COVID-19 Diabetes Admission/Observation Consideration of admission/observation: Escalation of care including admission/observation considered Patient would have been admitted to the hospital had his work up had any findings where hospital admission was appropriate and his clinical presentation warranted hospital admission. Lab Data [facility] Lab Attestation statement: I reviewed the patient's lab results. My interpretation of these results are in the [facility] Rationale portion of this note. Labs: Lab Results 05/04/24 Range/Units 16:15 POC Glucose 373 H* (60-115) mg/dL Independent Historian Clinical information obtained from an independent historian. History obtained from or confirmed by: EMS (EMS provided additional history and confirmed the history provided by the patient.) Chronic Conditions Patient?s care impacted by: Diabetes Discharge Plan Discharge Clinical Impression: COVID-19 Patient Disposition: Home, Self-Care Instructions: COVID-19 (Coronavirus Disease 2019) (ED) Additional Instructions: Follow up with your primary care provider. Return to the emergency department immediately if your symptoms worsen or if you develop any dizziness, shortness of breath, difficulty breathing, chest pain, blurry vision, loss of vision, nausea, vomiting, abdominal pain, fever, chills, back pain, or any other complaints. Prescriptions: No Action (DME) FreeStyle Marleni 14 Day [place]as Misc See Rx Instructions .Route Qty: 1 0RF Rx Instructions: As directed (DME) FreeStyle Marleni 14 Day Sensor Kit See Rx Instructions .Route Qty: 2 2RF Rx Instructions: As directed atorvastatin 80 mg tablet 40 mg PO BEDTIME Qty: 90 0RF (DME) FreeStyle Test Strip See Rx Instructions .Route Qty: 100 3RF Rx Instructions: three times per day (DME) blood-glucose meter [FreeStyle Lite Meter] Kit See Rx Instructions .Route Qty: 1 0RF Rx Instructions: As directed carvedilol 6.25 mg tablet 6.25 mg PO BID 30 Days Qty: 60 3RF Rx Instructions: must administer with a meal/food Farxiga 10 mg tablet 10 mg PO DAILY 30 Days Qty: 30 3RF ezetimibe [Zetia] 10 mg tablet 10 mg PO DAILY Qty: 30 3RF finasteride [Proscar] 5 mg tablet 5 mg PO DAILY 90 Days Qty: 90 1RF insulin degludec [Tresiba FlexTouch U-100] 100 unit/mL (3 mL) insulin pen 6 unit subcut BEDTIME 30 Days Qty: 15 1RF pantoprazole 40 mg tablet,delayed release (DR/EC) 40 mg PO DAILY Qty: 30 3RF (DME) pen needle, diabetic [BD Gifty 2nd Gen Pen Needle] 32 gauge x 5/32 needle See Rx Instructions .MEDSUPPLY Qty: 150 5RF Rx Instructions: 4 times a day (DME) pen needle, diabetic [BD Ultra-Fine Gifty Pen Needle] 32 gauge x 5/32 needle See Rx Instructions .ROUTE .MEDSUPPLY Qty: 50 3RF Rx Instructions: As directed alprazolam 0.5 mg tablet 0.5 mg PO BID PRN (Reason: Anxiety) 30 Days Qty: 60 1RF Hold Instructions: Resume on 02/09/24. gabapentin 300 mg capsule 300 mg PO BID 30 Days Qty: 60 3RF (DME) Prodigy No Coding Strip See Rx Instructions .Route Qty: 100 6RF Rx Instructions: Test 3 times a day (DME) blood-glucose meter [Prodigy Pocket Meter] Kit See Rx Instructions .Route Qty: 1 0RF Rx Instructions: Testing three times per day ferrous sulfate 325 mg (65 mg iron) tablet,delayed release (DR/EC) 325 mg PO DAILY Qty: 90 0RF Trulicity 0.75 mg/0.5 mL pen injector 0.75 mg SUBCUT MO Qty: 2 0RF cyanocobalamin (vitamin B-12) 500 mcg tablet 1,000 mcg PO BEDTIME Qty: 90 0RF spironolactone 25 mg tablet 25 mg PO DAILY 30 Days Qty: 30 3RF tamsulosin 0.4 mg capsule 0.4 mg PO DAILY 90 Days Qty: 90 1RF bumetanide 1 mg tablet 1 mg PO DAILY lactulose 10 gram/15 mL solution 30 ml PO BID insulin lispro [Admelog U-100 Insulin lispro] 100 unit/mL Solution See Protocol subcut QIDACHS Qty: 10 0RF Protocol: Insulin Correction Scale Less than or equal to 110 ---- Give (units): 0 111 to 150 Give (units): 0 151 to 200 Give (units): 2 201 to 250 Give (units): 4 251 to 300 Give (units): 6 301 to 350 Give (units): 8 Greater than 350 Give (units): 10 Call MD if Blood Glucose > : 350 Rx Instructions: BG <111 0 units, 111-150 - 0 units, 151-200 2 units, 201-250 4 units, 251-300 6 units, 301-350 8 units, >350 10 units (DME) lancets [FreeStyle Lancets] 28 gauge misc See Rx Instructions .Route Qty: 100 6RF Rx Instructions: As directed three times per day (DME) blood pressure test kit-large Kit See Rx Instructions .Route Qty: 1 0RF Rx Instructions: As directed Referrals: Cosmo Carlton MD [Primary Care Provider] - Interventions: ED Discharge Assessment Last Done: 05/04/24 17:46 Discharge Date/Time: 05/04/24 17:47 Print Language: Indonesian
[2024-05-04 16:15] VITALS: BP 113/51; BP 126/84; PULSE 72; PULSE 91; RESP 16; TEMP 36.8; O2SAT 96; O2SAT 97; BMI 26.7
[2024-05-04 16:19] LABS: Glucose, Whole Blood 373 mg/dL (60-115)
[2024-05-04 17:46] VITALS: BP 123/57; PULSE 70; RESP 16; TEMP 36.6; O2SAT 97
== END 2024-05-04 17:47 | disposition home or self-care (01) ==
PROVIDERS: Emergency Provider Emergency Medicine; PCP Internal Medicine
DX: U07.1 COVID-19 (principal); E11.9 Type 2 diabetes mellitus without complications; Z95.0 Presence of cardiac pacemaker; Z79.899 Other long term (current) drug therapy
CPT/HCPCS: 82947; 99282

== ENCOUNTER 2024-05-17 14:14 | Outpatient (AMB) | payer MEDICARE, SELFPAY ==
[2024-05-17 14:17] VITALS: BP 110/50; PULSE 70; O2SAT 98; BMI 25.7
--- NOTE | 2024-05-17 14:17 | A.OFFPC_ITS ---
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: No Accompanied by: Self / Same As Patient Allergies KARL Inhibitors Allergy (Severe, Verified 05/17/24 14:27) Angioedema dextran 40 [DEXTRAN 40] Allergy (Intermediate, Verified 05/17/24 14:27) tachycardia latex [LATEX] Allergy (Mild, Verified 05/17/24 14:27) BLISTERS lisinopril [From Zestril] Allergy (Mild, Verified 05/17/24 14:27) Unknown Iodinated Contrast Media [CONTRAST,IV] Allergy (Unknown, Verified 05/17/24 14:27) UNKNOWN Medication List - Last Reconciled 05/17/24 by Roberto Carlos Cisneros PA-C alprazolam 0.5 mg PO BID PRN 30 days atorvastatin 40 mg (1/2 x 80 mg) PO BEDTIME blood pressure test kit-large As directed blood sugar diagnostic (Prodigy No Coding strips) Test 3 times a day blood sugar diagnostic (FreeStyle Test strips) three times per day blood-glucose meter (FreeStyle Lite Meter kit) As directed blood-glucose meter (Prodigy Pocket Meter kit) Testing three times per day bumetanide 1 mg PO DAILY carvedilol 6.25 mg PO BID 30 days cyanocobalamin (vitamin B-12) 1,000 mcg (2 x 500 mcg) PO BEDTIME dapagliflozin propanediol (Farxiga) 10 mg PO DAILY 30 days dulaglutide (Trulicity) 0.75 mg (0.5 mL) subcut MO ezetimibe (Zetia) 10 mg PO DAILY ferrous sulfate 325 mg PO DAILY finasteride (Proscar) 5 mg PO DAILY 90 days flash glucose scanning reader (CallvineStyle Marleni 14 Day [place]) As directed flash glucose sensor (FreeStyle Marleni 14 Day Sensor kit) As directed gabapentin 300 mg PO BID 30 days insulin degludec (Tresiba FlexTouch U-100 insulin) 6 units (0.06 mL) subcut BEDTIME 30 days insulin lispro (Admelog U-100 Insulin lispro) See Protocol units subcut QIDACHS lactulose 30 mL PO BID lancets (FreeStyle Lancets) As directed three times per day pantoprazole 40 mg PO DAILY pen needle, diabetic (BD Gifty 2nd Gen Pen Needle) 4 times a day pen needle, diabetic (BD Ultra-Fine Gifty Pen Needle) As directed spironolactone 25 mg PO DAILY 30 days tamsulosin 0.4 mg PO DAILY 90 days Tobacco use date assessed: 10/21/23 Dental Screening Dental Screen Date: 10/21/23 HPI f/u DMII HPI Details patient is a 79-year-old male here today for a rehab follow-up visit. Patient has a past medical history significant for aortic stenosis, type 2 diabetes, hypertension, h/o Prostate cancer, morbid obesity, anxiety, h/o bleed ulcer with anemia. Recently seen a [facility] ER for acute episode of lightheadedness and dizziness. He forgot to take his midrodrin medication and was found to be hypotensive. Was sent to short term rehab at [facility] for few weeks. He is now home and has visiting nurses. He is concerned about his diabetic medication as he is all out of his short- acting insulin. Needs new screws for both long-acting and short-acting insulins. He is now apparently on Tresiba 8 units at night, lispro via sliding scale and Trulicity once a week. . 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 Streptococcal bacteremia Fracture of left humerus History of prostate cancer Acute lower gastrointestinal bleeding COVID-19 vaccine series completed Hypertension Dyslipidemia Diabetic nephropathy associated with type 2 diabetes mellitus Diabetic 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 associated with type 2 diabetes mellitus longterm (current) use of insulin Diabetes type 2, uncontrolled Varices of esophagus determined by endoscopy Esophageal varices without bleeding KOEHLER (dyspnea on exertion) Chronic fatigue Iron deficiency anemia CAD (coronary artery disease) ANUJA on CPAP Prostate cancer Spinal stenosis On beta kayy at home IBS (irritable colon syndrome) Aortic stenosis HTN (hypertension) Polyneuropathy GERD (gastroesophageal reflux disease) Surgical History S/P infectious endocarditis H/O cataract extraction Hx of endoscopy History of colonoscopy Hx of esophagogastroduodenoscopy Hx of colonoscopy History of surgery History of transurethral resection of prostate History of surgery History of heart artery stent Family History Father CVD (cardiovascular disease) Past heart attack Mother CVD (cardiovascular disease) Brain cancer Heart problem Daughter Breast cancer Sister Breast cancer Son Alive and well Family/Other Myocardial infarction Liver cancer Social History Household Members: Spouse Household Members Other:: Myesha Housing: House Are you a primary resident care aid to a significant other at home: No Do you presently have visiting nurse or other home services: Yes Alcohol intake: never Patient Tobacco Use Status: Never used Tobacco e-Cigarette/Vaping Use: Never Used Second Hand Smoke Exposure: No Advance Directives Date on File: 08/31/23 service: Yes Current occupational status: retired Cognitive needs: No Hearing needs: No Vision needs: Yes Questionnaire Thrive Questionnaire Date Thrive assessed: 04/15/24 GISELA-7 AMB Questionnaire GISELA-7 Date GISELA - 7 assessed: 02/10/24 Source: Developed by Drs. Andrew Miranda, Cristiane Zabala, Jose Jenkins and colleagues, with an educational tanya from [employer]. Physical exam (Primary Care) Vital Signs: Last Vital Signs Pulse 70 05/17/24 14:17 BP 110/50 L 05/17/24 14:17 Pulse Ox 98 05/17/24 14:17 Oxygen Delivery Method Room Air 05/17/24 14:17 BMI result Body Mass Index 25.7 Tobacco/Smoking Status: Tobacco use Status Tobacco use date assessed 10/21/23 05/17/24 14:18 Patient Tobacco Use Status Never used Tobacco 05/17/24 14:18 e-Cigarette/Vaping Use Never Used 05/17/24 14:18 Thrive Assessment: Date of Thrive Assessment Date Thrive assessed 04/15/24 05/17/24 14:18 Assessment and Plan Assessment & Plan (1) DMII (diabetes mellitus, type 2): Code(s): E11.9 - Type 2 diabetes mellitus without complications Qualifiers: Diabetes mellitus complication detail: with 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 Diabetes mellitus complication status: with neurologic complications 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 Give him refills on both of his insulins, did review what his doses are as there seemed to be some confusion. --Tresiba 8 units at night --Lispro via sliding scale 3 times a day --Trulicity 0.7 mg weekly Goal A1c is to remain below 7.0 (2) Decompensated hepatic cirrhosis: Code(s): K72.90 - Hepatic failure, unspecified without coma; K74.60 - Unspecified cirrhosis of liver Plan: Again followed by gastroenterology. Medications: Changed From insulin degludec (Tresiba FlexTouch U-100 insulin) 6 units (0.06 mL) subcut BEDTIME 30 days 15 mL 1RF E11.42 - Type 2 diabetes mellitus with diabetic 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 To insulin degludec (Tresiba FlexTouch U-100 insulin) 8 units (0.08 mL) subcut BEDTIME 15 mL 3RF 30 days E11.42 - Type 2 diabetes mellitus with diabetic 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 From insulin lispro (Admelog U-100 Insulin lispro) BG <111 0 units, 111-150 - 0 units, 151-200 2 units, 201-250 4 units, 251-300 6 units, 301-350 8 units, >350 10 units See Protocol subcut QIDACHS 10 mL 3RF To insulin lispro (Admelog U-100 Insulin lispro) BG <111 0 units, 111-150 - 0 units, 151-200 2 units, 201-250 4 units, 251-300 6 units, 301-350 8 units, >350 10 units See Protocol subcut TID 10 mL 3RF 30 days Coding Level of Care Code Est Pt Level 4 (17241) Diagnoses Type 2 diabetes mellitus with diabetic 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, with long-term current use of insulin E11.42; Z79.4 Diabetes mellitus complication detail: with 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 Diabetes mellitus complication status: with neurologic complications 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
== END 2024-05-17 15:46 | disposition home or self-care (01) ==
PROVIDERS: PCP Physician Assistant; Visit Provider Physician Assistant
DX: E11.42 Type 2 diabetes mellitus with diabetic 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 (principal); Z79.4 Long term (current) use of insulin; K72.90 Hepatic failure, unspecified without coma; K74.60 Unspecified cirrhosis of liver
CPT/HCPCS: 99214

== ENCOUNTER → 2024-05-19 23:59 | Outpatient (BNV) | payer MEDICARE, SELFPAY | PROVIDERS: PCP Physician Assistant; Visit Provider Physician Assistant | DX: U07.1 COVID-19 (principal); N39.0 Urinary tract infection, site not specified; I44.2 Atrioventricular block, complete | CPT/HCPCS: G0180 ==

== ENCOUNTER 2024-05-23 07:54 | Outpatient (REF) | payer MEDICARE, SELFPAY ==
[2024-05-23 11:11] LABS: MANUAL DIFF FLAG NO
[2024-05-23 11:31] LABS: Basophils Absolute Auto 0.1 X10*3/uL (0.0-0.2); Basophils Percent Auto 1.6 % (0-2); Eosinophils Absolute Auto 0.1 X10*3/uL (0.0-0.4); Eosinophils Percent Auto 2.7 % (0-4); Imm Gran Abs Auto 0.02 X10*3/uL (0.00-0.03); Imm Gran Pct Auto 0.5 % (0.0-0.4); Lymphocytes Absolute Auto 0.3 X10*3/uL (1.2-4.9); Mean Corpuscular HGB Conc 30.5 g/dl (31.0-36.0); Mean Corpuscular Hemoglobin 26.4 pg (27.0-33.0); Mean Corpuscular Volume 86.8 fL (80.0-98.0); Mean Platelet Volume 10.8 fL (9.4-12.4); Monocytes Absolute Auto 0.4 X10*3/uL (0.1-1.2); Monocytes Percent Auto 9.9 % (2-11); Neutrophils Absolute Auto 2.8 x10*3/uL (2.0-8.3); Neutrophils Percent Auto 76.3 % (45-73); Platelet Count 146 X10*3/uL (160-400); Red Blood Count 2.42 X10*6/uL (4.60-5.80); Red Cell Distribution Width 15.9 % (11.0-16.0); White Blood Count 3.7 X10*3/uL (4.8-10.8)
[2024-05-23 11:36] LABS: Hemoglobin 6.4 g/dl (14.0-18.0)
== END 2024-05-23 07:55 | disposition home or self-care (01) ==
LOC: HO.LHD 07:54
PROVIDERS: Visit Provider Internal Medicine
DX: D64.9 Anemia, unspecified (principal)
CPT/HCPCS: 36415; 85025

== ENCOUNTER 2024-05-30 08:09 | Outpatient (REF) | payer MEDICARE, SELFPAY ==
[2024-05-30 11:26] LABS: Basophils Absolute Auto 0.1 X10*3/uL (0.0-0.2); Basophils Percent Auto 1.2 % (0-2); Eosinophils Absolute Auto 0.1 X10*3/uL (0.0-0.4); Eosinophils Percent Auto 2.6 % (0-4); Hematocrit 25.9 % (42.0-52.0); Hemoglobin 7.7 g/dl (14.0-18.0); Imm Gran Abs Auto 0.02 X10*3/uL (0.00-0.03); Imm Gran Pct Auto 0.4 % (0.0-0.4); Lymphocytes Absolute Auto 0.4 X10*3/uL (1.2-4.9); Lymphocytes Percent Auto 8.6 % (20-40); MANUAL DIFF FLAG NO; Mean Corpuscular HGB Conc 29.7 g/dl (31.0-36.0); Mean Corpuscular Hemoglobin 26.5 pg (27.0-33.0); Mean Platelet Volume 11.7 fL (9.4-12.4); Monocytes Absolute Auto 0.6 X10*3/uL (0.1-1.2); Monocytes Percent Auto 12.6 % (2-11); Neutrophils Absolute Auto 3.7 x10*3/uL (2.0-8.3); Neutrophils Percent Auto 74.6 % (45-73); Platelet Count 110 X10*3/uL (160-400); Red Blood Count 2.91 X10*6/uL (4.60-5.80); Red Cell Distribution Width 17.3 % (11.0-16.0)
== END 2024-05-30 08:10 | disposition home or self-care (01) ==
LOC: HO.LHD 08:09
PROVIDERS: Visit Provider Internal Medicine
DX: D64.9 Anemia, unspecified (principal)
CPT/HCPCS: 36415; 85025

== ENCOUNTER 2024-06-06 07:41 | Outpatient (REF) | payer MEDICARE, SELFPAY ==
[2024-06-06 10:44] LABS: MANUAL DIFF FLAG NO
[2024-06-06 10:51] LABS: Eosinophils Absolute Auto 0.1 X10*3/uL (0.0-0.4); Eosinophils Percent Auto 2.4 % (0-4); Hematocrit 24.1 % (42.0-52.0); Hemoglobin 7.3 g/dl (14.0-18.0); Imm Gran Abs Auto 0.02 X10*3/uL (0.00-0.03); Imm Gran Pct Auto 0.5 % (0.0-0.4); Lymphocytes Absolute Auto 0.4 X10*3/uL (1.2-4.9); Lymphocytes Percent Auto 9.4 % (20-40); Mean Corpuscular HGB Conc 30.3 g/dl (31.0-36.0); Mean Corpuscular Hemoglobin 27.4 pg (27.0-33.0); Mean Corpuscular Volume 90.6 fL (80.0-98.0); Mean Platelet Volume 12.2 fL (9.4-12.4); Monocytes Absolute Auto 0.5 X10*3/uL (0.1-1.2); Monocytes Percent Auto 12.6 % (2-11); Neutrophils Absolute Auto 2.8 x10*3/uL (2.0-8.3); Neutrophils Percent Auto 74.1 % (45-73); Red Blood Count 2.66 X10*6/uL (4.60-5.80); Red Cell Distribution Width 17.9 % (11.0-16.0); White Blood Count 3.8 X10*3/uL (4.8-10.8)
[2024-06-06 10:52] LABS: Platelet Count 79 X10*3/uL (160-400)
== END 2024-06-06 07:42 | disposition home or self-care (01) ==
LOC: HO.LHD 07:41
PROVIDERS: Visit Provider Internal Medicine
DX: D64.9 Anemia, unspecified (principal)
CPT/HCPCS: 36415; 85025

== ENCOUNTER 2024-06-13 07:22 | Outpatient (REF) | payer MEDICARE, SELFPAY ==
[2024-06-13 10:59] LABS: MANUAL DIFF FLAG NO
[2024-06-13 11:05] LABS: Basophils Absolute Auto 0.1 X10*3/uL (0.0-0.2); Basophils Percent Auto 1.7 % (0-2); Eosinophils Absolute Auto 0.2 X10*3/uL (0.0-0.4); Eosinophils Percent Auto 4.7 % (0-4); Hemoglobin 8.7 g/dl (14.0-18.0); Imm Gran Abs Auto 0.01 X10*3/uL (0.00-0.03); Imm Gran Pct Auto 0.3 % (0.0-0.4); Lymphocytes Absolute Auto 0.5 X10*3/uL (1.2-4.9); Lymphocytes Percent Auto 13.4 % (20-40); Mean Corpuscular Hemoglobin 27.7 pg (27.0-33.0); Mean Corpuscular Volume 92.4 fL (80.0-98.0); Mean Platelet Volume 10.7 fL (9.4-12.4); Monocytes Absolute Auto 0.4 X10*3/uL (0.1-1.2); Monocytes Percent Auto 12.5 % (2-11); Neutrophils Absolute Auto 2.3 x10*3/uL (2.0-8.3); Neutrophils Percent Auto 67.4 % (45-73); Red Blood Count 3.14 X10*6/uL (4.60-5.80); Red Cell Distribution Width 18.3 % (11.0-16.0); White Blood Count 3.4 X10*3/uL (4.8-10.8)
[2024-06-13 11:06] LABS: Platelet Count 99 X10*3/uL (160-400)
== END 2024-06-13 07:23 | disposition home or self-care (01) ==
LOC: HO.LHD 07:22
PROVIDERS: Visit Provider Internal Medicine
DX: D64.9 Anemia, unspecified (principal)
CPT/HCPCS: 36415; 85025

== ENCOUNTER 2024-06-20 08:14 | Outpatient (REF) | payer MEDICARE, SELFPAY ==
[2024-06-20 10:52] LABS: MANUAL DIFF FLAG NO
[2024-06-20 10:53] LABS: Basophils Percent Auto 1.2 % (0-2); Eosinophils Absolute Auto 0.1 X10*3/uL (0.0-0.4); Eosinophils Percent Auto 3.6 % (0-4); Hematocrit 24.5 % (42.0-52.0); Hemoglobin 7.5 g/dl (14.0-18.0); Imm Gran Abs Auto 0.01 X10*3/uL (0.00-0.03); Imm Gran Pct Auto 0.3 % (0.0-0.4); Lymphocytes Absolute Auto 0.4 X10*3/uL (1.2-4.9); Lymphocytes Percent Auto 12.1 % (20-40); Mean Corpuscular HGB Conc 30.6 g/dl (31.0-36.0); Mean Corpuscular Hemoglobin 27.8 pg (27.0-33.0); Mean Corpuscular Volume 90.7 fL (80.0-98.0); Mean Platelet Volume 11.4 fL (9.4-12.4); Monocytes Absolute Auto 0.4 X10*3/uL (0.1-1.2); Monocytes Percent Auto 10.9 % (2-11); Neutrophils Absolute Auto 2.4 x10*3/uL (2.0-8.3); Neutrophils Percent Auto 71.9 % (45-73); Platelet Count 105 X10*3/uL (160-400); Red Cell Distribution Width 17.8 % (11.0-16.0); White Blood Count 3.4 X10*3/uL (4.8-10.8)
== END 2024-06-20 08:15 | disposition home or self-care (01) ==
LOC: HO.LHD 08:14
PROVIDERS: Visit Provider Internal Medicine
DX: D64.9 Anemia, unspecified (principal)
CPT/HCPCS: 36415; 85025

== ENCOUNTER 2024-06-27 08:32 | Outpatient (REF) | payer MEDICARE, SELFPAY ==
[2024-06-27 11:05] LABS: MANUAL DIFF FLAG NO
[2024-06-27 11:24] LABS: Basophils Absolute Auto 0.1 X10*3/uL (0.0-0.2); Basophils Percent Auto 1.1 % (0-2); Eosinophils Absolute Auto 0.2 X10*3/uL (0.0-0.4); Eosinophils Percent Auto 4.4 % (0-4); Hematocrit 28.4 % (42.0-52.0); Hemoglobin 8.7 g/dl (14.0-18.0); Imm Gran Abs Auto 0.02 X10*3/uL (0.00-0.03); Imm Gran Pct Auto 0.4 % (0.0-0.4); Lymphocytes Absolute Auto 0.4 X10*3/uL (1.2-4.9); Mean Corpuscular HGB Conc 30.6 g/dl (31.0-36.0); Mean Corpuscular Hemoglobin 27.8 pg (27.0-33.0); Mean Corpuscular Volume 90.7 fL (80.0-98.0); Mean Platelet Volume 10.8 fL (9.4-12.4); Monocytes Absolute Auto 0.6 X10*3/uL (0.1-1.2); Monocytes Percent Auto 11.4 % (2-11); Neutrophils Percent Auto 74.7 % (45-73); Platelet Count 109 X10*3/uL (160-400); Red Blood Count 3.13 X10*6/uL (4.60-5.80); Red Cell Distribution Width 17.6 % (11.0-16.0); White Blood Count 5.3 X10*3/uL (4.8-10.8)
== END 2024-06-27 08:33 | disposition home or self-care (01) ==
LOC: HO.LHD 08:32
PROVIDERS: Visit Provider Internal Medicine
DX: D64.9 Anemia, unspecified (principal)
CPT/HCPCS: 36415; 85025

== ENCOUNTER 2024-07-04 08:06 | Outpatient (REF) | payer MEDICARE, SELFPAY ==
[2024-07-04 10:22] LABS: MANUAL DIFF FLAG NO
[2024-07-04 10:34] LABS: Basophils Absolute Auto 0.1 X10*3/uL (0.0-0.2); Basophils Percent Auto 1.4 % (0-2); Eosinophils Absolute Auto 0.2 X10*3/uL (0.0-0.4); Eosinophils Percent Auto 5.1 % (0-4); Hematocrit 25.8 % (42.0-52.0); Hemoglobin 7.7 g/dl (14.0-18.0); Imm Gran Abs Auto 0.01 X10*3/uL (0.00-0.03); Imm Gran Pct Auto 0.3 % (0.0-0.4); Lymphocytes Absolute Auto 0.4 X10*3/uL (1.2-4.9); Lymphocytes Percent Auto 11.4 % (20-40); Mean Corpuscular HGB Conc 29.8 g/dl (31.0-36.0); Mean Corpuscular Hemoglobin 27.3 pg (27.0-33.0); Mean Corpuscular Volume 91.5 fL (80.0-98.0); Mean Platelet Volume 11.6 fL (9.4-12.4); Monocytes Absolute Auto 0.4 X10*3/uL (0.1-1.2); Monocytes Percent Auto 12.5 % (2-11); Neutrophils Absolute Auto 2.4 x10*3/uL (2.0-8.3); Neutrophils Percent Auto 69.3 % (45-73); Platelet Count 108 X10*3/uL (160-400); Red Blood Count 2.82 X10*6/uL (4.60-5.80); Red Cell Distribution Width 17.3 % (11.0-16.0); White Blood Count 3.5 X10*3/uL (4.8-10.8)
== END 2024-07-04 08:07 | disposition home or self-care (01) ==
LOC: HO.LHD 08:06
PROVIDERS: Visit Provider Internal Medicine
DX: D64.9 Anemia, unspecified (principal)
CPT/HCPCS: 36415; 85025

== ENCOUNTER 2024-07-11 08:22 | Outpatient (REF) | payer MEDICARE, SELFPAY ==
[2024-07-11 11:33] LABS: MANUAL DIFF FLAG NO
[2024-07-11 11:39] LABS: Basophils Absolute Auto 0.1 X10*3/uL (0.0-0.2); Basophils Percent Auto 1.3 % (0-2); Eosinophils Absolute Auto 0.2 X10*3/uL (0.0-0.4); Hematocrit 24.6 % (42.0-52.0); Hemoglobin 7.5 g/dl (14.0-18.0); Imm Gran Abs Auto 0.01 X10*3/uL (0.00-0.03); Imm Gran Pct Auto 0.3 % (0.0-0.4); Lymphocytes Absolute Auto 0.3 X10*3/uL (1.2-4.9); Lymphocytes Percent Auto 8.9 % (20-40); Mean Corpuscular HGB Conc 30.5 g/dl (31.0-36.0); Mean Corpuscular Hemoglobin 28.1 pg (27.0-33.0); Mean Corpuscular Volume 92.1 fL (80.0-98.0); Mean Platelet Volume 11.1 fL (9.4-12.4); Monocytes Absolute Auto 0.5 X10*3/uL (0.1-1.2); Monocytes Percent Auto 13.4 % (2-11); Neutrophils Absolute Auto 2.7 x10*3/uL (2.0-8.3); Neutrophils Percent Auto 71.1 % (45-73); Platelet Count 130 X10*3/uL (160-400); Red Blood Count 2.67 X10*6/uL (4.60-5.80); Red Cell Distribution Width 17.2 % (11.0-16.0); White Blood Count 3.8 X10*3/uL (4.8-10.8)
== END 2024-07-11 08:23 | disposition home or self-care (01) ==
LOC: HO.LHD 08:22
PROVIDERS: Visit Provider Internal Medicine
DX: D64.9 Anemia, unspecified (principal)
CPT/HCPCS: 36415; 85025

== ENCOUNTER 2024-07-18 08:32 | Outpatient (REF) | payer MEDICARE, SELFPAY ==
[2024-07-18 12:10] LABS: MANUAL DIFF FLAG NO
[2024-07-18 12:18] LABS: Basophils Percent Auto 0.8 % (0-2); Eosinophils Absolute Auto 0.2 X10*3/uL (0.0-0.4); Eosinophils Percent Auto 4.9 % (0-4); Hemoglobin 8.4 g/dl (14.0-18.0); Imm Gran Abs Auto 0.02 X10*3/uL (0.00-0.03); Imm Gran Pct Auto 0.5 % (0.0-0.4); Lymphocytes Absolute Auto 0.3 X10*3/uL (1.2-4.9); Lymphocytes Percent Auto 7.7 % (20-40); Mean Corpuscular Hemoglobin 27.8 pg (27.0-33.0); Mean Corpuscular Volume 92.7 fL (80.0-98.0); Mean Platelet Volume 11.4 fL (9.4-12.4); Monocytes Absolute Auto 0.4 X10*3/uL (0.1-1.2); Monocytes Percent Auto 9.3 % (2-11); Neutrophils Percent Auto 76.8 % (45-73); Platelet Count 126 X10*3/uL (160-400); Red Blood Count 3.02 X10*6/uL (4.60-5.80); Red Cell Distribution Width 16.8 % (11.0-16.0); White Blood Count 3.9 X10*3/uL (4.8-10.8)
== END 2024-07-18 08:33 | disposition home or self-care (01) ==
LOC: HO.LHD 08:32
PROVIDERS: Visit Provider Internal Medicine
DX: E11.42 Type 2 diabetes mellitus with diabetic 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 (principal); R18.8 Other ascites; I50.32 Chronic diastolic (congestive) heart failure; Z79.4 Long term (current) use of insulin
CPT/HCPCS: 36415; 83036; 85025; 90471; 99212

== ENCOUNTER 2024-07-18 13:56 | Outpatient (AMB) | payer MEDICARE, SELFPAY ==
[2024-07-18 14:08] VITALS: BP 130/54; PULSE 76; O2SAT 96
--- NOTE | 2024-07-18 14:08 | A.OFFPC_ITS ---
Vital Signs 07/18/24 14:08 BP 130/54 L Blood Pressure Location Lt brachial Position Sitting Pulse 76 Pulse Source Pulse Oximeter Pulse Oximetry (%) 96 Oxygen Delivery Method Room Air Intake Visit Reasons: 2mth f/u - see comments Allergies KARL Inhibitors Allergy (Severe, Verified 05/17/24 14:27) Angioedema dextran 40 [DEXTRAN 40] Allergy (Intermediate, Verified 05/17/24 14:27) tachycardia latex [LATEX] Allergy (Mild, Verified 05/17/24 14:27) BLISTERS lisinopril [From Zestril] Allergy (Mild, Verified 05/17/24 14:27) Unknown Iodinated Contrast Media [CONTRAST,IV] Allergy (Unknown, Verified 05/17/24 14:27) UNKNOWN Medication List - Last Reconciled 07/18/24 by Roberto Carlos Cisneros PA-C alprazolam 0.5 mg PO BID PRN 30 days atorvastatin 40 mg (1/2 x 80 mg) PO BEDTIME blood pressure test kit-large As directed blood sugar diagnostic (Prodigy No Coding strips) Test 3 times a day blood sugar diagnostic (FreeStyle Test strips) three times per day blood-glucose meter (FreeStyle Lite Meter kit) As directed blood-glucose meter (Prodigy Pocket Meter kit) Testing three times per day bumetanide 1 mg PO DAILY 90 days carvedilol 6.25 mg PO BID 30 days cyanocobalamin (vitamin B-12) 1,000 mcg (2 x 500 mcg) PO BEDTIME dapagliflozin propanediol (Farxiga) 10 mg PO DAILY 30 days dulaglutide (Trulicity) 0.75 mg (0.5 mL) subcut MO ezetimibe (Zetia) 10 mg PO DAILY ferrous sulfate 325 mg PO DAILY finasteride (Proscar) 5 mg PO DAILY 90 days flash glucose scanning reader (Primrose TherapeuticsStyle Marleni 14 Day Lenore) As directed flash glucose sensor (FreeStyle Marleni 14 Day Sensor kit) As directed gabapentin 300 mg PO BID 30 days insulin degludec (Tresiba FlexTouch U-100 insulin) 8 units (0.08 mL) subcut BEDTIME 30 days insulin lispro (Admelog SoloStar U-100 Insulin lispro) 1 sliding scale dose subcut TID 30 days lactulose 30 mL PO BID lancets (FreeStyle Lancets) As directed three times per day midodrine 10 mg PO TID 30 days pantoprazole 40 mg PO DAILY pen needle, diabetic (BD Gifty 2nd Gen Pen Needle) 4 times a day pen needle, diabetic (BD Ultra-Fine Gifty Pen Needle) As directed spironolactone 25 mg PO DAILY 30 days tamsulosin 0.4 mg PO DAILY 90 days Tobacco use date assessed: 10/21/23 Dental Screening Dental Screen Date: 10/21/23 HPI 2mth f/u - see comments HPI Details patient is a 79-year-old male here today for follow-up visit.. Patient has a past medical history significant for aortic stenosis, type 2 diabetes, hypertension, h/o Prostate cancer, morbid obesity, anxiety, h/o bleed ulcer with anemia. .. Liver cirrhosis with ASCITES: Does appear to have some significant abdominal distention and bilateral lower extremity swelling. He does bring in all of his medication including his bubble pill pack though does not have Bumex. Was on Bumex 1 mg daily though apparently not taking this medication. Seems to be fluid overloaded today in office and we did discuss perhaps going to the hospital on getting IV diuresis though he declines at this time as he has been in and out of the hospital several times over the last few months. PLAN: Will restart Bumex 1 mg and up titrate per response. Will have patient back in 1 week to evaluate his weight. .. Chronic pancytopenia: Continues to hematology here in [place]. He regular gets blood transfusions. Most recent hemoglobin at 8. Type 2 diabetes complicated by neuropathy: Patient's most recent A1c is 6.2. He continues on Tresiba 16 units at night and NovoLog sliding scale.. He does have neuropathy and continues on gabapentin with good effect on his diabetic neuropathy in his lower extremities. Hepatic Encephalopathy: He is doing well from a mentation point of view now. Goal is to have 3 bowel movements per day. Will restart lactulose twice a day to produce a goal of 3 bowel movements per day. Patient understands and agrees to do so. 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 Streptococcal bacteremia Fracture of left humerus History of prostate cancer Acute lower gastrointestinal bleeding COVID-19 vaccine series completed Hypertension Dyslipidemia Diabetic nephropathy associated with type 2 diabetes mellitus Diabetic 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 associated with type 2 diabetes mellitus jail (current) use of insulin Diabetes type 2, uncontrolled Varices of esophagus determined by endoscopy Esophageal varices without bleeding KOEHLER (dyspnea on exertion) Chronic fatigue Iron deficiency anemia CAD (coronary artery disease) ANUJA on CPAP Prostate cancer Spinal stenosis On beta kayy at home IBS (irritable colon syndrome) Aortic stenosis HTN (hypertension) Polyneuropathy GERD (gastroesophageal reflux disease) Surgical History S/P infectious endocarditis H/O cataract extraction Hx of endoscopy History of colonoscopy Hx of esophagogastroduodenoscopy Hx of colonoscopy History of surgery History of transurethral resection of prostate History of surgery History of heart artery stent Family History Father CVD (cardiovascular disease) Past heart attack Mother CVD (cardiovascular disease) Brain cancer Heart problem Daughter Breast cancer Sister Breast cancer Son Alive and well Family/Other Myocardial infarction Liver cancer Social History Household Members: Spouse Household Members Other:: Myesha Housing: House Are you a primary ambulatory care to a significant other at home: No Do you presently have visiting nurse or other home services: Yes Alcohol intake: never Patient Tobacco Use Status: Never used Tobacco e-Cigarette/Vaping Use: Never Used Second Hand Smoke Exposure: No Advance Directives Date on File: 08/31/23 service: Yes Current occupational status: retired Cognitive needs: No Hearing needs: No Vision needs: Yes Questionnaire Thrive Questionnaire Date Thrive assessed: 04/15/24 GISELA-7 AMB Questionnaire GISELA-7 Date GISELA - 7 assessed: 02/10/24 Source: Developed by Drs. Andrew Miranda, Cristiane Zabala, Jose Jenkins and colleagues, with an educational tanya from [employer]. Review of Systems Const Denies headache(s) Eyes Denies loss of vision ENT Denies vertigo, Denies dizziness, Denies headache(s) and Denies sore throat Card Denies chest pain, Denies leg edema and Denies lightheadedness Resp Denies cough, Denies hemoptysis and Denies wheezing GI Denies abdominal pain, Denies melena, Denies constipation, Denies diarrhea and Denies vomiting Denies dysuria, Denies urinary frequency and Denies urinary urgency Musc Denies arthralgias, Denies joint swelling, Denies numbness and Denies tingling Neuro Denies Abnormal speech present, Denies behavioral changes, Denies vertigo, Denies dizziness, Denies headache(s), Denies loss of vision, Denies memory loss, Denies numbness and Denies tingling Psych Denies anxiety, Denies behavioral changes, Denies depression, Denies memory loss and Denies panic attacks Anmol/Lymph Denies easy bleeding and Denies easy bruising Aller/Immun Denies wheezing Physical exam (Primary Care) Vital Signs: Last Vital Signs Pulse 76 07/18/24 14:08 BP 130/54 L 07/18/24 14:08 Pulse Ox 96 07/18/24 14:08 Oxygen Delivery Method Room Air 07/18/24 14:08 Tobacco/Smoking Status: Tobacco use Status Tobacco use date assessed 10/21/23 07/18/24 14:08 Patient Tobacco Use Status Never used Tobacco 07/18/24 14:08 e-Cigarette/Vaping Use Never Used 07/18/24 14:08 Thrive Assessment: Date of Thrive Assessment Date Thrive assessed 04/15/24 07/18/24 14:08 Const General: healthy appearing, no acute distress, alert and awake Nutritional Appearance: well nourished Orientation/consciousness: oriented to person, oriented to place and oriented to time HENMT Ears: TM's normal bilaterally General nose exam: Normal nasal mucous membranes and turbinates present Eyes Conjunctivae: conjunctivae normal Sclerae: sclerae normal Pupils: Equal, round and reactive pupils present Neck Neck: Yes no lymphadenopathy and Yes no JVD Thyroid: Thyroid normal Carotids: no bruits Resp Effort & Inspection: normal respiratory effort and not tachypneic Auscultation: no crackles, no rales, no rhonchi and no wheezes Cardio Rate: regular rate Rhythm: regular rhythm Heart sounds: no murmurs and normal S1 and S2 GI Other: ABDOMEN DISTENDED Inspection: Yes distended Palpation (GI): Soft to palpation, nontender, no hepatomegaly and no splenomegaly Auscultation: normal bowel sounds Skin General skin exam: no rashes or lesions noted and dry skin Neuro General: oriented to person, oriented to place and oriented to time Cranial nerves: Yes Equal, round and reactive pupils present Speech: No Abnormal speech present Gait exam (Neuro): Normal gait present Motor exam (neuro): no tremor noted Extrem Other: SIGNIFICANT EDEMA IN THE BILATERAL LOWER EXTREMITIES PAST THE LEVEL OF HIS KNEES Right upper extremity: full ROM Left upper extremity: full ROM Right lower extremity: full ROM and edema Left lower extremity: full ROM and edema Psych Mental Status: mental status grossly normal Speech and movement: Normal speech and movement present Affect: normal affect Attitude: cooperative Thought process: Normal thought process present Office Procedures Flu Questionnaire Does the patient have a severe egg allergy?: No Results AMB Hemoglobin A1c AMB Hemoglobin A1c 6.2 % Last Edit by JENNI Hudson on 07/18/24 14:25 Immunizations Fluarix Triv [id number] (PF) 45 mcg (15 mcg x 3)/0.5 mL IM syringe Performing Provider: Roberto Carlos Cisneros PA-C [facility] Documented (not given) by: JENNI Hudson on 07/18/24 14:12 Reason Not Given: Patient Refused Results Reviewed Results Reviewed: Laboratory Last Values Hgb A1c (Clinic) 6.2 % (4.0-6.0) H 07/18/24 14:23 Coding Level of Care Code Est Pt Level 4 (73180) Diagnoses Type 2 diabetes mellitus with diabetic 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, with long-term current use of insulin E11.42; Z79.4 Diabetes mellitus complication detail: with 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 Diabetes mellitus complication status: with neurologic complications Diabetes mellitus jail insulin use: with jail use Other ascites R18.8 Ascites type: other type Chronic diastolic heart failure I50.32 Heart failure type: diastolic Heart failure chronicity: chronic Assessment & Plan Assessment & Plan (1) DMII (diabetes mellitus, type 2): Code(s): E11.9 - Type 2 diabetes mellitus without complications Category: Medical Qualifiers: Diabetes mellitus complication detail: with 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 Diabetes mellitus complication status: with neurologic complications 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 Will continue current antihyperglycemic medication. Goal A1c is to remain below 7.0 (2) Ascites: Code(s): R18.8 - Other ascites Category: Medical Qualifiers: Ascites type: other type Qualified Code(s): R18.8 - Other ascites Plan: Has pretty considerable abdominal distention today. Has bilateral lower extremity edema. Reviewed patient's medication and noted he is not taking bumetanide 1 mg. Will send a new script of bumetanide. He is not interested returning back to the hospital for IV diuretics which I feel he may need. Will see patient back in 1 week to evaluate weight and effectiveness of the diuretic. (3) Heart failure: Code(s): I50.9 - Heart failure, unspecified Category: Medical Qualifiers: Heart failure type: diastolic Heart failure chronicity: chronic Qualified Code(s): I50.32 - Chronic diastolic (congestive) heart failure Plan: Patient does have bilateral significant lower extremity edema and abdominal distention. Unclear if this is related to decompensated heart failure or worsening abdominal ascites. Reviewed medication as above and found out he was not taking Bumex 1 mg. Will restart the Bumex to see if we can get some of the fluid off of him. WE DID DISCUSS THE POSSIBLE NEED TO HAVE IV DIURETICS DONE IN THE HOSPITAL WITH MONITORING HIS I'S AND NOSE THOUGH HE DECLINES REPORTING HE HAS BEEN IN AND OUT OF THE HOSPITAL OVER THE LAST FEW MONTHS AND IS QUITE TIRED OF IT. Orders: Orders Influenza [id number] Immunization 07/18/24 Z23 - Encounter for immunization AMB Hemoglobin A1c 07/18/24 E11.42 - Type 2 diabetes mellitus with diabetic 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, Z79.4 - computer 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 Medications: Refilled bumetanide 1 mg PO DAILY 90 days 90 tabs 1RF K72.90 - Hepatic failure, unspecified without coma, K74.60 - Unspecified cirrhosis of liver
== END 2024-07-18 14:44 | disposition home or self-care (01) ==
LOC: HO.HMCH 13:57
PROVIDERS: PCP Physician Assistant; Visit Provider Physician Assistant
DX: E11.42 Type 2 diabetes mellitus with diabetic 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 (principal); R18.8 Other ascites; I50.32 Chronic diastolic (congestive) heart failure; Z79.4 Long term (current) use of insulin

== ENCOUNTER 2024-07-25 08:40 | Outpatient (REF) | payer MEDICARE, SELFPAY | END 2024-07-25 08:41 | disposition home or self-care (01) | LOC: HO.LHD 08:40 | PROVIDERS: Visit Provider Internal Medicine | DX: Z13.89 Encounter for screening for other disorder (principal) ==

== ENCOUNTER 2024-07-27 10:49 | Outpatient (AMB) | payer MEDICARE, SELFPAY ==
--- NOTE | 2024-07-27 10:54 | A.OFFPC_ITS ---
Vital Signs 07/27/24 11:05 Height 5 ft 9 in Weight 207 lb 10.807 oz BMI 30.7 BP 106/50 L Blood Pressure Location Lt brachial Position Sitting Pulse 74 Pulse Source Pulse Oximeter Pulse Oximetry (%) 97 Oxygen Delivery Method Room Air Intake Visit Reasons: Weight check (okay to double book in the morning) Allergies KARL Inhibitors Allergy (Severe, Verified 07/27/24 11:16) Angioedema dextran 40 [DEXTRAN 40] Allergy (Intermediate, Verified 07/27/24 11:16) tachycardia latex [LATEX] Allergy (Mild, Verified 07/27/24 11:16) BLISTERS lisinopril [From Zestril] Allergy (Mild, Verified 07/27/24 11:16) Unknown Iodinated Contrast Media [CONTRAST,IV] Allergy (Unknown, Verified 07/27/24 11:16) UNKNOWN Medication List - Last Reconciled 07/27/24 by Roberto Carlos Cisneros PA-C alprazolam 0.5 mg PO BID PRN 30 days atorvastatin 40 mg (1/2 x 80 mg) PO BEDTIME blood pressure test kit-large As directed blood sugar diagnostic (Prodigy No Coding strips) Test 3 times a day blood sugar diagnostic (FreeStyle Test strips) three times per day blood-glucose meter (FreeStyle Lite Meter kit) As directed blood-glucose meter (Prodigy Pocket Meter kit) Testing three times per day bumetanide 1 mg PO DAILY 90 days carvedilol 6.25 mg PO BID 30 days cyanocobalamin (vitamin B-12) 1,000 mcg (2 x 500 mcg) PO BEDTIME dapagliflozin propanediol (Farxiga) 10 mg PO DAILY 30 days dulaglutide (Trulicity) 0.75 mg (0.5 mL) subcut MO ezetimibe (Zetia) 10 mg PO DAILY ferrous sulfate 325 mg PO DAILY finasteride (Proscar) 5 mg PO DAILY 90 days flash glucose scanning reader ([employer]Style Marleni 14 Day [place]) As directed flash glucose sensor ([employer]Style Marleni 14 Day Sensor kit) As directed gabapentin 300 mg PO BID 30 days insulin degludec (Tresiba FlexTouch U-100 insulin) 8 units (0.08 mL) subcut BEDTIME 30 days insulin lispro (Admelog SoloStar U-100 Insulin lispro) 1 sliding scale dose subcut TID 30 days lactulose 30 mL PO BID lancets (FreeStyle Lancets) As directed three times per day midodrine 10 mg PO TID 30 days pantoprazole 40 mg PO DAILY pen needle, diabetic (BD Gifty 2nd Gen Pen Needle) 4 times a day pen needle, diabetic (BD Ultra-Fine Gifty Pen Needle) As directed spironolactone 25 mg PO DAILY 30 days tamsulosin 0.4 mg PO DAILY 90 days Tobacco use date assessed: 10/21/23 Dental Screening Dental Screen Date: 10/21/23 HPI Weight check (okay to double book in the morning) HPI Details patient is a 79-year-old male here today for follow-up visit.. Patient has a past medical history significant for aortic stenosis, type 2 diabetes, hypertension, h/o Prostate cancer, morbid obesity, anxiety, h/o bleed ulcer with anemia. .. Liver cirrhosis with ASCITES: Does appear to have some significant abdominal distention and bilateral lower extremity swelling. He does bring in all of his medication including his bubble pill pack though does not have Bumex. Was on Bumex 1 mg daily though apparently not taking this medication. Seems to be fluid overloaded today in office and we did discuss perhaps going to the hospital on getting IV diuresis though he declines at this time as he has been in and out of the hospital several times over the last few months. Patient has restarted Bumex 1 mg in his note some improvement in his lower extr emity edema. PLAN : Still does have some erythema over the anterior souza thus will start antibiotics for possible cellulitis. Also will increase his Bumex to 2 mg daily for better diuresis .. CHRONIC CONDITIONS--> Chronic pancytopenia: Continues to hematology here in [place]. He regular gets blood transfusions. Most recent hemoglobin at 8. Type 2 diabetes complicated by neuropathy: Patient's most recent A1c is 6.2. He continues on Tresiba 16 units at night and NovoLog sliding scale.. He does have neuropathy and continues on gabapentin with good effect on his diabetic neuropathy in his lower extremities. Hepatic Encephalopathy: He is doing well from a mentation point of view now. Goal is to have 3 bowel movements per day. Will restart lactulose twice a day to produce a goal of 3 bowel movements per day. Patient understands and agrees to do so. 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 Diabetes type 2, uncontrolled Varices of esophagus determined by endoscopy Esophageal varices without bleeding KOEHLER (dyspnea on exertion) Chronic fatigue Iron deficiency anemia CAD (coronary artery disease) ANUJA on CPAP Prostate cancer Spinal stenosis On beta kayy at home IBS (irritable colon syndrome) Aortic stenosis HTN (hypertension) Polyneuropathy GERD (gastroesophageal reflux disease) Surgical History S/P infectious endocarditis H/O cataract extraction Hx of endoscopy History of colonoscopy Hx of esophagogastroduodenoscopy Hx of colonoscopy History of surgery History of transurethral resection of prostate History of surgery History of heart artery stent Family History Father CVD (cardiovascular disease) Past heart attack Mother CVD (cardiovascular disease) Brain cancer Heart problem Daughter Breast cancer Sister Breast cancer Son Alive and well Family/Other Myocardial infarction Liver cancer Social History Household Members: Spouse Household Members Other:: Myesha Housing: House Are you a primary landcare officer to a significant other at home: No Do you presently have visiting nurse or other home services: Yes Alcohol intake: never Patient Tobacco Use Status: Never used Tobacco e-Cigarette/Vaping Use: Never Used Second Hand Smoke Exposure: No Advance Directives Date on File: 08/31/23 service: Yes Current occupational status: retired Cognitive needs: No Hearing needs: No Vision needs: Yes Questionnaire Thrive Questionnaire Date Thrive assessed: 04/15/24 GISELA-7 AMB Questionnaire GISELA-7 Date GISELA - 7 assessed: 02/10/24 Source: Developed by Drs. Andrew Miranda, Cristiane Zabala, Jose Jenkins and colleagues, with an educational tanya from [employer]. Review of Systems Const Denies headache(s) Eyes Denies loss of vision ENT Denies vertigo, Denies dizziness, Denies headache(s) and Denies sore throat Card Denies chest pain, Denies leg edema and Denies lightheadedness Resp Denies cough, Denies hemoptysis and Denies wheezing GI Denies abdominal pain, Denies melena, Denies constipation, Denies diarrhea and Denies vomiting Denies dysuria, Denies urinary frequency and Denies urinary urgency Musc Denies arthralgias, Denies joint swelling, Denies numbness and Denies tingling Neuro Denies Abnormal speech present, Denies behavioral changes, Denies vertigo, Denies dizziness, Denies headache(s), Denies loss of vision, Denies memory loss, Denies numbness and Denies tingling Psych Denies anxiety, Denies behavioral changes, Denies depression, Denies memory loss and Denies panic attacks Anmol/Lymph Denies easy bleeding and Denies easy bruising Aller/Immun Denies wheezing Physical exam (Primary Care) Vital Signs: Last Vital Signs Pulse 74 07/27/24 11:05 BP 106/50 L 07/27/24 11:05 Pulse Ox 97 07/27/24 11:05 Oxygen Delivery Method Room Air 07/27/24 11:05 BMI result Body Mass Index 30.7 Tobacco/Smoking Status: Tobacco use Status Tobacco use date assessed 10/21/23 07/27/24 10:55 Patient Tobacco Use Status Never used Tobacco 07/27/24 10:55 e-Cigarette/Vaping Use Never Used 07/27/24 10:55 Thrive Assessment: Date of Thrive Assessment Date Thrive assessed 04/15/24 07/27/24 10:55 Const General: healthy appearing, no acute distress, alert and awake Nutritional Appearance: well nourished Orientation/consciousness: oriented to person, oriented to place and oriented to time HENMT Ears: TM's normal bilaterally General nose exam: Normal nasal mucous membranes and turbinates present Eyes Conjunctivae: conjunctivae normal Sclerae: sclerae normal Pupils: Equal, round and reactive pupils present Neck Neck: Yes no lymphadenopathy and Yes no JVD Thyroid: Thyroid normal Carotids: no bruits Resp Effort & Inspection: normal respiratory effort and not tachypneic Auscultation: no crackles, no rales, no rhonchi and no wheezes Cardio Rate: regular rate Rhythm: regular rhythm Heart sounds: no murmurs and normal S1 and S2 GI Other: ABDOMEN REMAINS DISTENDED Inspection: Yes distended Palpation (GI): Soft to palpation, nontender, no hepatomegaly and no splenomegaly Auscultation: normal bowel sounds Skin General skin exam: no rashes or lesions noted and dry skin Neuro General: oriented to person, oriented to place and oriented to time Cranial nerves: Yes Equal, round and reactive pupils present Speech: No Abnormal speech present Gait exam (Neuro): Normal gait present Motor exam (neuro): no tremor noted Extrem Other: BILATERAL LOWER EXTREMITIES WITH 2+ PITTING EDEMA TO THE LEVEL ABOVE BOTH KNEES Right upper extremity: full ROM Left upper extremity: full ROM Right lower extremity: full ROM and edema Left lower extremity: full ROM and edema Psych Mental Status: mental status grossly normal Speech and movement: Normal speech and movement present Affect: normal affect Attitude: cooperative Thought process: Normal thought process present Office Procedures Flu Questionnaire Does the patient have a severe egg allergy?: No Does the patient have severe life threatening allergies?: No Does the patient have a fever or illness today?: No Has the patient ever had Guillain-Sparks Syndrome?: No Has the patient ever had any past reaction to a flu shot?: No Immunizations Fluarix Triv [id number] (PF) 45 mcg (15 mcg x 3)/0.5 mL IM syringe Performing Provider: Roberto Carlos Cisneros PA-C [facility] Administered by: JENNI Hudson on 07/27/24 11:36 Dose Route Admin Location Dispensed Lot Number Expiration Date [facility] Orthopedic Physical Therapist 0.5 mL IM Right Deltoid 0.5 mL [id number] 03/13/25 [id number] [id number] VIS Given Date VIS Provided VIS Publication Date 07/27/24 Single Vaccine 21 Eligibility Eligibility Date Funding Source Not [facility] Eligible 07/27/24 Private Coding Level of Care Code Est Pt Level 4 (39803) Diagnoses Other ascites R18.8 Ascites type: other type Cellulitis of right lower limb L03.115 Assessment & Plan Assessment & Plan (1) Ascites: Code(s): R18.8 - Other ascites Category: Medical Qualifiers: Ascites type: other type Qualified Code(s): R18.8 - Other ascites Plan: Has pretty considerable abdominal distention today. Has bilateral lower extremity edema. Will increase his Bumex to 2 mg for better diuresis as he is still seems very much overloaded. We did discuss perhaps going to the hospital to have a IV diuresis and perhaps a paracentesis though patient declining at this time (2) Cellulitis of right lower limb: Code(s): L03.115 - Cellulitis of right lower limb Category: Medical Plan: As per HPI has erythema over his right lower extremity consistent with possible cellulitis. Will supply patient with antibiotic Orders: Orders Ammonia 07/27/24 K72.90 - Hepatic failure, unspecified without coma, K74.60 - Unspecified cirrhosis of liver Basic Metabolic Panel 07/27/24 K72.90 - Hepatic failure, unspecified without coma, K74.60 - Unspecified cirrhosis of liver Liver Panel 07/27/24 K72.90 - Hepatic failure, unspecified without coma, K74.60 - Unspecified cirrhosis of liver Influenza [id number] Immunization 07/27/24 Z23 - Encounter for immunization Medications: New bumetanide 2 mg PO DAILY 30 tabs 1RF 30 days R18.8 - Other ascites amoxicillin-pot clavulanate 875-125 mg 1 tab PO BID 14 tabs 0RF 7 days L03.115 - Cellulitis of right lower limb
[2024-07-27 11:05] VITALS: BP 106/50; PULSE 74; O2SAT 97; BMI 30.7
== END 2024-07-27 11:44 | disposition home or self-care (01) ==
PROVIDERS: PCP Physician Assistant; Visit Provider Physician Assistant
DX: R18.8 Other ascites (principal); L03.115 Cellulitis of right lower limb

== ENCOUNTER → 2024-07-27 10:49 | Outpatient (BNVA) | payer MEDICARE, SELFPAY | PROVIDERS: PCP Physician Assistant; Visit Provider Physician Assistant | DX: Z23 Encounter for immunization (principal); R18.8 Other ascites; L03.115 Cellulitis of right lower limb | CPT/HCPCS: 90471; 90656; 99212 ==

== ENCOUNTER 2024-08-01 07:54 | Outpatient (REF) | payer MEDICARE, SELFPAY ==
[2024-08-01 12:05] LABS: MANUAL DIFF FLAG NO
[2024-08-01 12:52] LABS: Basophils Percent Auto 0.9 % (0-2); Eosinophils Absolute Auto 0.2 X10*3/uL (0.0-0.4); Eosinophils Percent Auto 4.5 % (0-4); Hematocrit 24.7 % (42.0-52.0); Hemoglobin 7.6 g/dl (14.0-18.0); Imm Gran Abs Auto 0.01 X10*3/uL (0.00-0.03); Imm Gran Pct Auto 0.2 % (0.0-0.4); Lymphocytes Absolute Auto 0.4 X10*3/uL (1.2-4.9); Lymphocytes Percent Auto 10.1 % (20-40); Mean Corpuscular HGB Conc 30.8 g/dl (31.0-36.0); Mean Corpuscular Hemoglobin 27.9 pg (27.0-33.0); Mean Corpuscular Volume 90.8 fL (80.0-98.0); Mean Platelet Volume 10.9 fL (9.4-12.4); Monocytes Absolute Auto 0.6 X10*3/uL (0.1-1.2); Monocytes Percent Auto 12.9 % (2-11); Neutrophils Percent Auto 71.4 % (45-73); Red Blood Count 2.72 X10*6/uL (4.60-5.80); Red Cell Distribution Width 16.6 % (11.0-16.0); White Blood Count 4.3 X10*3/uL (4.8-10.8)
[2024-08-01 12:54] LABS: Platelet Count 94 X10*3/uL (160-400)
== END 2024-08-01 07:55 | disposition home or self-care (01) ==
LOC: HO.LHD 07:54
PROVIDERS: Visit Provider Internal Medicine
DX: D64.9 Anemia, unspecified (principal)
CPT/HCPCS: 36415; 85025

== ENCOUNTER 2024-08-08 07:44 | Outpatient (REF) | payer MEDICARE, SELFPAY ==
[2024-08-08 11:04] LABS: MANUAL DIFF FLAG NO
[2024-08-08 11:07] LABS: Basophils Percent Auto 1.2 % (0-2); Eosinophils Absolute Auto 0.1 X10*3/uL (0.0-0.4); Eosinophils Percent Auto 4.3 % (0-4); Hematocrit 22.6 % (42.0-52.0); Imm Gran Abs Auto 0.02 X10*3/uL (0.00-0.03); Imm Gran Pct Auto 0.6 % (0.0-0.4); Lymphocytes Absolute Auto 0.3 X10*3/uL (1.2-4.9); Lymphocytes Percent Auto 9.8 % (20-40); Mean Corpuscular Hemoglobin 27.6 pg (27.0-33.0); Monocytes Absolute Auto 0.4 X10*3/uL (0.1-1.2); Monocytes Percent Auto 12.6 % (2-11); Neutrophils Absolute Auto 2.3 x10*3/uL (2.0-8.3); Neutrophils Percent Auto 71.5 % (45-73); Red Blood Count 2.54 X10*6/uL (4.60-5.80); Red Cell Distribution Width 17.5 % (11.0-16.0); White Blood Count 3.3 X10*3/uL (4.8-10.8)
[2024-08-08 11:09] LABS: Platelet Count 99 X10*3/uL (160-400)
== END 2024-08-08 07:45 | disposition home or self-care (01) ==
LOC: HO.LHD 07:44
PROVIDERS: Visit Provider Internal Medicine
DX: D64.9 Anemia, unspecified (principal)
CPT/HCPCS: 36415; 85025

== ENCOUNTER 2024-08-09 13:03 | Outpatient (REF) | payer MEDICARE, SELFPAY | END 2024-08-09 13:04 | disposition home or self-care (01) | LOC: HO.LAB 13:03 | PROVIDERS: PCP Physician Assistant; Visit Provider Physician Assistant | DX: Z13.89 Encounter for screening for other disorder (principal) ==

== ENCOUNTER 2024-08-13 06:47 | Emergency (ER) | payer MEDICARE, SELFPAY ==
--- NOTE | ~2024-08-13 | US_ITS ---
EXAMINATION: US TRIPLEX LOWER EXTREMITY, BILATERAL CLINICAL INFORMATION: Lower extremity pain and swelling. Evaluate for deep vein thrombosis. COMPARISON: Right lower extremity venous ultrasound dated 12/29/2022. TECHNIQUE: Color-flow triplex imaging with spectral analysis and compression Doppler were performed on the bilateral lower extremities. FINDINGS: Respiratory variation, normal compression and augmented flow are noted throughout the bilateral lower extremities. The visualized common femoral vein, superficial femoral vein, profunda femoral vein, popliteal vein and midcalf posterior tibial venous segments show no evidence of deep venous thrombosis bilaterally. The left peroneal vein is unremarkable. The right peroneal vein was not well visualized. There is no Lehman's cyst. Bilateral lower extremity edema. Possible left inguinal lymph node measuring up to 1.4 cm. No additional soft tissue mass or organized fluid collection. US/US venous duplex LE BI IMPRESSION: 1. No evidence of deep venous thrombosis involving the bilateral lower extremities. 2. Bilateral lower extremity edema. 3. Possible left inguinal lymph node measuring up to 1.4 cm. Electronically signed by: Tripp Ma MD 08/13/2024 10:01 AM JAMES
[2024-08-13 06:52] VITALS: BP 114/66; PULSE 96; O2SAT 100
--- NOTE | 2024-08-13 06:52 | ED_ITS ---
HPI - General Adult General Chief complaint: Extremity Problem Stated complaint: leg pain 01/21, new H20 pill Time Seen by Provider: 08/13/24 06:52 Source: patient, EMS and RN notes reviewed Mode of arrival: EMS Limitations: no limitations History of Present Illness ED Provider: Jania HPI narrative: Patient is an 79-year-old male with history of T2DM, hepatic cirrhosis with ascites, anemia receiving , HTN, dyslipidemia, CAD, ANUJA, prostate CA, IBS, aortic stenosis, GERD presenting to the ED with complaint of bilateral lower leg pain and swelling for the past 2 weeks since being restarted on Bumex. Went to PCP for checkup and was found to have been off the Bumex even though his PCP has not discontinued it. PCP recommended coming to the ED at that time for IV diuresis but patient declined. Hasn't been able to sleep for the past 3 nights due to pain. Difficulty ambulating due to pain. Denies chest pain, palpitations, dyspnea. He was also started on antibiotics for possible early cellulitis to right lower leg. States pain is mild at rest, 07/24 when standing. MD complaint: leg pain Onset (ago): week(s) Location: lower extremity Quality: aching Pain Consistency: constant Relieving factors: rest Associated symptoms: denies other symptoms Related Data Home Medications ?Medication ?Instructions ?Recorded ?Confirmed lactulose 10 gram/15 mL oral 30 ml PO BID 04/14/24 07/27/24 solution Previous Rx's ?Medication ?Instructions ?Recorded blood pressure test kit-large #1 ea 11/21/21 flash glucose scanning reader #1 ea 10/03/22 (FreeStyle Marleni 14 Day [place]) flash glucose sensor (FreeStyle #2 ea 10/03/22 Marleni 14 Day Sensor kit) lancets 28 gauge (FreeStyle #100 ea 10/21/23 Lancets) blood sugar diagnostic (FreeStyle #100 ea 03/09/24 Test strips) blood-glucose meter (FreeStyle #1 ea 03/09/24 Lite Meter kit) pen needle, diabetic 32 gauge x #150 ea 03/09/24 (BD Gifty 2nd Gen Pen Needle) pen needle, diabetic 32 gauge x #50 ea 03/09/24 (BD Ultra-Fine Gifty Pen Needle) blood sugar diagnostic (Prodigy No #100 ea 03/19/24 Coding strips) blood-glucose meter (Prodigy #1 ea 03/22/24 Pocket Meter kit) tamsulosin 0.4 mg capsule 0.4 mg PO DAILY 90 days #90 caps 05/04/24 insulin degludec 100 unit/mL (3 8 unit (0.08 mL) subcut BEDTIME 30 05/17/24 mL) subcutaneous pen (Tresiba days #15 mL FlexTouch U-100 insulin) insulin lispro 100 unit/mL 1 sliding scale dose subcut TID 30 05/23/24 subcutaneous pen (Admelog SoloStar days #15 mL U-100 Insulin lispro) midodrine 10 mg tablet 10 mg PO TID hypotension 30 days 05/30/24 #90 tabs finasteride 5 mg tablet (Proscar) 5 mg PO DAILY 90 days #90 tabs 06/06/24 gabapentin 300 mg capsule 300 mg PO BID 30 days #60 caps 06/06/24 dulaglutide 0.75 mg/0.5 mL 0.75 mg (0.5 mL) subcut MO #2 mL 06/13/24 subcutaneous [facility] ferrous sulfate 325 mg (65 mg 325 mg PO DAILY #90 tabs 06/24/24 iron) tablet,delayed release carvedilol 6.25 mg tablet 6.25 mg PO BID 30 days #60 tabs 06/30/24 ezetimibe 10 mg tablet (Zetia) 10 mg PO DAILY #30 tabs 06/30/24 atorvastatin 80 mg tablet 40 mg (1/2 x 80 mg) PO BEDTIME #90 07/07/24 tabs dapagliflozin propanediol 10 mg 10 mg PO DAILY 30 days #30 tabs 07/07/24 tablet (Farxiga) pantoprazole 40 mg tablet,delayed 40 mg PO DAILY #30 tabs 07/07/24 release bumetanide 1 mg tablet 1 mg PO DAILY 90 days #90 tabs 07/18/24 cyanocobalamin (vitamin B-12) 500 1,000 mcg (2 x 500 mcg) PO BEDTIME 07/23/24 mcg tablet #90 tabs spironolactone 25 mg tablet 25 mg PO DAILY 30 days #30 tabs 07/23/24 alprazolam 0.5 mg tablet 0.5 mg PO BID PRN Anxiety 30 days 07/25/24 #60 tabs amoxicillin 875 mg-potassium 1 tab PO BID 7 days #14 tabs 07/27/24 clavulanate 125 mg tablet bumetanide 2 mg tablet 2 mg PO DAILY 30 days #30 tabs 07/27/24 diclofenac sodium 1 % topical gel 2 g topical QID #100 grams 08/13/24 Allergies Allergy/AdvReac Type Severity Reaction Status Date / Time KARL Inhibitors Allergy Severe Angioedema Verified 08/13/24 07:07 dextran 40 [DEXTRAN 40] Allergy Intermediate tachycardia Verified 08/13/24 07:07 latex [LATEX] Allergy Mild BLISTERS Verified 08/13/24 07:07 lisinopril [From Zestril] Allergy Mild Unknown Verified 08/13/24 07:07 Iodinated Contrast Media Allergy Unknown UNKNOWN Verified 08/13/24 07:07 [CONTRAST,IV] Review of Systems 2 Review of Systems: As per HPI. 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 Streptococcal bacteremia Fracture of left humerus History of prostate cancer Acute lower gastrointestinal bleeding COVID-19 vaccine series completed Hypertension Dyslipidemia Diabetic nephropathy associated with type 2 diabetes mellitus Diabetic 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 associated with type 2 diabetes mellitus FDC (current) use of insulin Diabetes type 2, uncontrolled Varices of esophagus determined by endoscopy Esophageal varices without bleeding KOEHLER (dyspnea on exertion) Chronic fatigue Iron deficiency anemia CAD (coronary artery disease) ANUJA on CPAP Prostate cancer Spinal stenosis On beta kayy at home IBS (irritable colon syndrome) Aortic stenosis HTN (hypertension) Polyneuropathy GERD (gastroesophageal reflux disease) Surgical History S/P infectious endocarditis H/O cataract extraction Hx of endoscopy History of colonoscopy Hx of esophagogastroduodenoscopy Hx of colonoscopy History of surgery History of transurethral resection of prostate History of surgery History of heart artery stent Family History Family History Father CVD (cardiovascular disease) Past heart attack Mother CVD (cardiovascular disease) Brain cancer Heart problem Daughter Breast cancer Sister Breast cancer Son Alive and well Family/Other Myocardial infarction Liver cancer Social History Social History Household Members: Spouse Household Members Other:: Myesha Housing: House Are you a primary zoo caretaker to a significant other at home: No Do you presently have visiting nurse or other home services: Yes Alcohol intake: never Patient Tobacco Use Status: Never used Tobacco Smoked in Last 30 Days: No e-Cigarette/Vaping Use: Never Used Second Hand Smoke Exposure: No Use of substances other than those prescribed or required for medical reasons: No Advance Directives: Yes Advance Directives on File: Yes Advance Directives Date on File: 08/31/23 service: Yes Current occupational status: retired Cognitive needs: No Hearing needs: No Vision needs: Yes Physical Exam ED Vital Signs: Vital Signs - 24 hr 08/13/24 06:56 08/13/24 06:59 08/13/24 08:04 Temperature 97.9 F 97.9 F Pulse Rate 86 86 76 Respiratory Rate 19 20 16 Blood Pressure 156/61 H 156/61 H 134/59 L Pulse Oximetry 96 98 95 Oxygen Delivery Method Room Air Room Air Room Air 08/13/24 09:10 Temperature Pulse Rate 88 Respiratory Rate 16 Blood Pressure 143/52 H Pulse Oximetry 98 Oxygen Delivery Method Room Air BMI result Body Mass Index 29.0 Vital signs have been reviewed and appear to be correct. Blood pressure normal. Heart rate normal. Respiratory rate normal. Temperature normal. Oxygen saturation normal. Const General: cooperative, healthy appearing and no acute distress Orientation/consciousness: oriented to person, oriented to place, oriented to time and patient oriented x3 Limitations: no limitations [facility] Head: Yes normocephalic and Yes atraumatic Ears: external ears normal General nose exam: Normal external nose present Face and sinus: Yes face symmetric Mouth: oropharynx normal and moist mucous membranes Throat: Yes uvula midline Eyes Pupils: Equal, round and reactive pupils present Neck Neck: Yes normal visual inspection and Yes supple Resp Effort & Inspection: normal respiratory effort and able to speak in complete sentences Auscultation: clear to auscultation bilaterally Cardio Rate: regular rate Rhythm: regular rhythm Heart sounds: S1 normal heart sound present and S2 normal heart sound present GI Inspection: Yes distended Palpation (GI): Soft to palpation and nontender Auscultation: normoactive bowel sounds General: Yes no CVA tenderness Back/Spine/Pelvis Back: no CVA tenderness Skin General skin exam: elasticity normal and turgor normal Neuro General: oriented to person, oriented to place, oriented to time, patient oriented x3, moves all extremities, no focal motor deficits and CN's II-XI intact bilaterally Cranial nerves: Yes Equal, round and reactive pupils present Cognition (Neuro): normal cognition Extrem General: Yes full ROM and Yes no calf tenderness Right lower extremity: lower leg Details: erythema Location: of the distal lower leg Location: anteriorly and pitting edema Details: 3+ Left lower extremity: lower leg Details: pitting edema Details: 3+ Psych Mental Status: mental status grossly normal Affect: normal affect Thought process: Normal thought process present Medications Administered Discontinued Medications Generic Name Dose Route Start Last Admin Trade Name Freq PRN Reason Stop Dose Admin Bumetanide 1 mg 08/13/24 08:34 08/13/24 09:08 Bumetanide 1 Mg/4 Ml Vial IVPUSH 08/13/24 08:35 1 mg ONCE ONE Administration Protocol Medical Decision Making Medical Decision Making MDM Narrative: Patient is an 79-year-old male with history of T2DM, hepatic cirrhosis with ascites, anemia, HTN, dyslipidemia, CAD, ANUJA, prostate CA, IBS, aortic stenosis, GERD presenting to the ED with complaint of bilateral lower leg pain and swelling for the past 2 weeks since being restarted on Bumex. On exam patient is awake, A+Ox3, VS WNL, afebrile, normal neurological exam without focal deficits, physical exam findings as above. Given reported symptoms and physical exam findings, initial differential includes lower extremity edema, DVT, cellulitis. Labs notable for chronic pancytopenia, not requiring transfusion at this time, chronically elevated BUN/Cr, elevated BNP,normal K and Mg. Ultrasound notable for no evidence of DVT to bilateral lower extremities. My interpretation is in agreement with the radiologist's interpretation. Right lower leg does not appear acutely cellulitic. Feel patient is stable for discharge home. Case discussed with my attending MD, Dr. Schwartz, who is in agreement with this plan. Patient has compression stockings but does not wear them, citing difficulty in putting them on. Discussed with patient and ways to apply the stockings, and also getting a pair with less compression, as this would be better than none at all. Also advised patient to sit with legs elevated, he states he has a recliner which lifts his legs, that he has not been using. Will have patient take additional 1mg dose of Bumex at night for 3 days starting tomorrow. Stressed the importance of following up with PCP to recheck labs. Plan discussed with patient and and all questions answered, return precautions discussed as well. Patient verbalized understanding of and agreement with plan. Differential Diagnosis Differential Diagnoses: The differential diagnosis associated with the presentation includes as per [facility] Admission/Observation Consideration of admission/observation: Escalation of care including admission/observation considered Patient would have been admitted to the hospital had their work up had any findings where hospital admission was appropriate and their clinical presentation warranted hospital admission. Lab Data [facility] Lab Attestation statement: I reviewed the patient's lab results. As per [facility] 08/13/24 07:19 08/13/24 07:19 Labs: Lab Results 08/13/24 08/13/24 Range/Units 07:19 08:07 WBC 4.2 L (4.8-10.8) X10*3/uL RBC 3.20 L (4.60-5.80) X10*6/uL Hgb 9.0 L (14.0-18.0) g/dl Hct 28.4 L (42.0-52.0) % MCV 88.8 (80.0-98.0) fL MCH 28.1 (27.0-33.0) pg MCHC 31.7 (31.0-36.0) g/dl RDW 17.6 H (11.0-16.0) % Plt Count 106 L (160-400) X10*3/uL MPV 10.0 (9.4-12.4) fL Immature Gran % (Auto) 0.5 H (0.0-0.4) % Neut % (Auto) 69.2 (45-73) % Lymph % (Auto) 11.4 L (20-40) % [place] % (Auto) 13.5 H (2-11) % Eos % (Auto) 4.5 H (0-4) % Baso % (Auto) 0.9 (0-2) % Lymph # (Auto) 0.5 L (1.2-4.9) X10*3/uL [place] # (Auto) 0.6 (0.1-1.2) X10*3/uL Eos # (Auto) 0.2 (0.0-0.4) X10*3/uL Baso # (Auto) 0.0 (0.0-0.2) X10*3/uL Abs Immat Gran (auto) 0.02 (0.00-0.03) X10*3/uL Absolute Neuts (auto) 2.9 (2.0-8.3) x10*3/uL Absolute Nucleated RBC 0.000 (0.0-0.012) X10*3/uL Nucleated RBC % (auto) 0.0 (0.0-0.2) /100WBC PT 15.3 H (10.9-12.4) SEC INR 1.3 H (0.9-1.1) Sodium 144 (135-145) mmol/L Potassium 4.5 (3.3-5.1) mmol/L Chloride 113 H (96-108) mmol/L Carbon Dioxide 23 (22-29) mmol/L Anion Gap 13 (12-20) BUN 46 H (9-16) mg/dL Creatinine 1.74 H (0.5-1.4) mg/dL Estim Creat Clear Calc 36.7 Estimated GFR 38 Random Glucose 141 H (60-115) mg/dL Calcium 7.9 L (8.4-10.2) mg/dL Magnesium 2.3 (1.6-2.6) mg/dL Total Bilirubin 1.2 H (0.0-1.0) mg/dL AST 38 H (5-37) U/L ALT 19 (0-40) U/L Alkaline Phosphatase 185 H (39-117) U/L B-Natriuretic Peptide 423 H (<100) pg/mL Total Protein 6.7 (6.5-8.0) g/dL Albumin 3.0 L (3.5-5.0) g/dL Urine Color Yellow Urine Appearance Clear Urine pH 7.0 (5.0-9.0) Ur Specific [place] 1.020 (1.005-1.025) Urine Protein Trace (Neg-Trace) mg/dL Urine Glucose (UA) >=1000 H (Negative) mg/dL Urine Ketones Negative (Negative) mg/dL Urine Blood Negative (Negative) Urine Nitrite Negative (Negative) Ur Leukocyte Esterase Negative (Negative) Urine RBC 0-2 (0-2) /HPF Urine WBC 0-5 (0-5) /HPF Ur Squamous Epith Cells 0-2 (0-2) /HPF Urine Bacteria None Seen (None Seen) Hyaline Casts 0-2 (0-2) /LPF Independent Interpretation I performed an independent interpretation of an: Ultrasound Interpretation: No evidence of DVT bilateral LEs. Radiology Impression Discussion of test interpretation with radiology: I have reviewed the radiologist's reading. Radiologist Impression: US/US venous duplex LE BI IMPRESSION: 1. No evidence of deep venous thrombosis involving the bilateral lower extremities. 2. Bilateral lower extremity edema. 3. Possible left inguinal lymph node measuring up to 1.4 cm. Independent Historian Clinical information obtained from an independent historian. History obtained from or confirmed by: Spouse External Record Review External record reviewed: Inpatient record, Office record and Outpatient record Prescription Management I considered prescription management with: Pain Medication Discharge Plan Discharge Clinical Impression: Bilateral edema of lower extremity Patient Disposition: Home, Self-Care Instructions: Leg Edema (ED) Additional Instructions: You were evaluated in the emergency department today for leg pain, which is likely due to your leg swelling. You were given an additional IV dose of your Bumex in the ED today. STARTING TOMORROW, 08/14/24, TAKE YOUR NORMAL 2MG (1 TAB) OF BUMEX IN THE MORNING, AND TAKE AN ADDITIONAL 1MG (1/2 TAB) AT NIGHT FOR THREE DAYS (08/14, 08/15, & 08/16). CALL YOUR PA OTONIEL CISNEROS TO LET HIM KNOW THAT YOU CAME TO THE ER, AND THAT YOU NEED YOUR LABS RECHECKED. KEEP YOUR LEGS ELEVATED AT HOME IN THE RECLINER WEAR YOUR COMPRESSION STOCKINGS. TRY ROLLING THEM ONTO YOUR LEGS DISCUSSED. IF NECESSARY, TRY BUYING A PAIR WITH LESS COMPRESSION, SUCH 10-20mmHg Return to the emergency department if you develop chest pain, palpitations, shortness of breath or difficulty breathing, new redness or warmth to your legs, fever, or any other concerning symptoms. You are being prescribed topical diclofenac for pain, use this as prescribed. Prescriptions: New diclofenac sodium 1 % gel 2 g topical QID Qty: 100 0RF Rx Instructions: apply to single elbow, wrist or hand; for hand includes palm/fingers/back of hand No Action (DME) FreeStyle Marleni 14 Day [place] Misc See Rx Instructions .Route Qty: 1 0RF Rx Instructions: As directed (DME) FreeStyle Marleni 14 Day Sensor Kit See Rx Instructions .Route Qty: 2 2RF Rx Instructions: As directed (DME) FreeStyle Test Strip See Rx Instructions .Route Qty: 100 3RF Rx Instructions: three times per day (DME) blood-glucose meter [FreeStyle Lite Meter] Kit See Rx Instructions .Route Qty: 1 0RF Rx Instructions: As directed (DME) pen needle, diabetic [BD Gifty 2nd Gen Pen Needle] 32 gauge x 5/32 needle See Rx Instructions .MEDSUPPLY Qty: 150 5RF Rx Instructions: 4 times a day (DME) pen needle, diabetic [BD Ultra-Fine Gifty Pen Needle] 32 gauge x 5/32 needle See Rx Instructions .ROUTE .MEDSUPPLY Qty: 50 3RF Rx Instructions: As directed (DME) Prodigy No Coding Strip See Rx Instructions .Route Qty: 100 6RF Rx Instructions: Test 3 times a day (DME) blood-glucose meter [Prodigy Pocket Meter] Kit See Rx Instructions .Route Qty: 1 0RF Rx Instructions: Testing three times per day tamsulosin 0.4 mg capsule 0.4 mg PO DAILY 90 Days Qty: 90 1RF insulin lispro [Admelog SoloStar U-100 Insulin] 100 unit/mL insulin pen 1 sliding scale dose subcut TID 30 Days Qty: 15 6RF Rx Instructions: BG <111 0 units, 111-150 - 0 units, 151-200 2 units, 201-250 4 units, 251-300 6 units, 301-350 8 units, >350 10 units midodrine 10 mg tablet 10 mg PO TID 30 Days Qty: 90 3RF Rx Instructions: do not give last dose of day after 6PM or within 4 hrs of bedtime finasteride [Proscar] 5 mg tablet 5 mg PO DAILY 90 Days Qty: 90 1RF gabapentin 300 mg capsule 300 mg PO BID 30 Days Qty: 60 3RF Trulicity 0.75 mg/0.5 mL pen injector 0.75 mg SUBCUT MO Qty: 2 3RF ferrous sulfate 325 mg (65 mg iron) tablet,delayed release (DR/EC) 325 mg PO DAILY Qty: 90 0RF carvedilol 6.25 mg tablet 6.25 mg PO BID 30 Days Qty: 60 3RF Rx Instructions: must administer with a meal/food ezetimibe [Zetia] 10 mg tablet 10 mg PO DAILY Qty: 30 3RF atorvastatin 80 mg tablet 40 mg PO BEDTIME Qty: 90 0RF Farxiga 10 mg tablet 10 mg PO DAILY 30 Days Qty: 30 3RF pantoprazole 40 mg tablet,delayed release (DR/EC) 40 mg PO DAILY Qty: 30 3RF spironolactone 25 mg tablet 25 mg PO DAILY 30 Days Qty: 30 0RF cyanocobalamin (vitamin B-12) 500 mcg tablet 1,000 mcg PO BEDTIME Qty: 90 0RF alprazolam 0.5 mg tablet 0.5 mg PO BID PRN (Reason: Anxiety) 30 Days Qty: 60 1RF lactulose 10 gram/15 mL solution 30 ml PO BID (DME) lancets [FreeStyle Lancets] 28 gauge misc See Rx Instructions .Route Qty: 100 6RF Rx Instructions: As directed three times per day insulin degludec [Tresiba FlexTouch U-100] 100 unit/mL (3 mL) insulin pen 8 unit subcut BEDTIME 30 Days Qty: 15 3RF (DME) blood pressure test kit-large Kit See Rx Instructions .Route Qty: 1 0RF Rx Instructions: As directed bumetanide 1 mg tablet 1 mg PO DAILY 90 Days Qty: 90 1RF amoxicillin-pot clavulanate 875-125 mg tablet 1 tab PO BID 7 Days Qty: 14 0RF bumetanide 2 mg tablet 2 mg PO DAILY 30 Days Qty: 30 1RF Print Language: Angolan
[2024-08-13 06:56] VITALS: BP 156/61; PULSE 86; RESP 19; TEMP 36.6; O2SAT 96
[2024-08-13 06:59] VITALS: BP 156/61; PULSE 86; RESP 20; TEMP 36.6; O2SAT 98; BMI 29.0
[2024-08-13 07:25] LABS: MANUAL DIFF FLAG NO
[2024-08-13 07:27] LABS: Basophils Percent Auto 0.9 % (0-2); Eosinophils Absolute Auto 0.2 X10*3/uL (0.0-0.4); Eosinophils Percent Auto 4.5 % (0-4); Hematocrit 28.4 % (42.0-52.0); Imm Gran Abs Auto 0.02 X10*3/uL (0.00-0.03); Imm Gran Pct Auto 0.5 % (0.0-0.4); Lymphocytes Absolute Auto 0.5 X10*3/uL (1.2-4.9); Lymphocytes Percent Auto 11.4 % (20-40); Mean Corpuscular HGB Conc 31.7 g/dl (31.0-36.0); Mean Corpuscular Hemoglobin 28.1 pg (27.0-33.0); Mean Corpuscular Volume 88.8 fL (80.0-98.0); Monocytes Absolute Auto 0.6 X10*3/uL (0.1-1.2); Monocytes Percent Auto 13.5 % (2-11); Neutrophils Absolute Auto 2.9 x10*3/uL (2.0-8.3); Neutrophils Percent Auto 69.2 % (45-73); Platelet Count 106 X10*3/uL (160-400); Red Cell Distribution Width 17.6 % (11.0-16.0); White Blood Count 4.2 X10*3/uL (4.8-10.8)
--- NOTE | 2024-08-13 07:27 | PC.NURSE ---
Pt is alert and oriented, reports b/l legs pain since Bumex started. +4 pitting edema noted with redness more on right side, +pulses. Pt noted with round distended abd. Multiple bruises noted to general body in different stages of healing. On thinners. A fib on tele. Breathing even and unlabored. Pt denies SOB or chest pain. IV established to right ac, labs obtained/sent.
--- OUTSIDE RECORDS SUMMARY | 2024-08-13 07:32 | XMS_ITS | Continuity of Care Document ---
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 Name Role Phone Roberto Carlos Arzola Primary Care Physician Encounter [facility] Date(s): 05/06/24 - 05/10/[address] [id number] Encounter Diagnosis COVID-19(Final) - 05/07/24 Weakness(Final) - 05/07/24 Pre-syncope(Final) - 05/07/24 Discharge Disposition: A-Transfer VNA/Home Health Attending Physician: Pilo Verduzco MD, Essence Admitting Physician: Amara Berkowitz MD Referring Physician: Not on Staff, Referring MD Allergies, Adverse Reactions, Alerts Substance Reaction Severity Status lisinopril 1 throat swelling Active Zestril Active Latex Rash Active pregabalin hallucination Active [...] tablet, By Mouth, 2 times a day, PRN, as needed for anxiety Start Date: 07/14/23 Status: Ordered aspirin 81 mg oral delayed release tablet 81 mg, 1, tablet, By Mouth, Daily, Do not start aspirin until 06/16/2022, # 90 tablet, Refills 0, Tot. Refills 0, Maintenance, 02/07/23 12:28:00 EDT, Route to Pharmacy Electronically, [facility] #[id number], Partial fill upon patient request if t... Start Date: 02/07/23 Status: Ordered Augmentin 875 mg-125 mg oral tablet 1 tablet, By Mouth, Every 12 hours, for 5 days, # 10 tablet, 0 Refills, Acute 05/15/24 9:22:00 EDT,05/10/24 9:22:00 EDT, Tablet, [facility], Partial fill upon patient request if the prescription is for a schedule II opioid drug., 175.25... Start Date: 05/10/24 Stop Date: 05/15/24 Status: Ordered bethanechol 25 mg oral tablet [...] EDT, Supply Start Date: 02/07/23 Status: Ordered carvedilol 6.25 mg oral tablet 6.25 mg, 1, tablet, By Mouth, 2 times a day with meals, Maintenance, 05/07/24 8:03:00 EDT, Partial fill upon patient request if the prescription is for a schedule II opioid drug. Start Date: 05/07/24 Status: Ordered Farxiga 10 mg oral tablet 1 tablet = 10 mg, By Mouth, Daily, # 90 tablet, 0 Refills, Maintenance, 02/07/23 12:33:00 EDT, Tablet, [facility] #[id number], Partial fill upon patient request if the prescription is for a schedule II opioid drug., 175, cm, 02/07/23 12:05:00 EDT... Start Date: 02/07/23 Status: Ordered ferrous sulfate 325 mg oral enteric coated tablet 325 mg, 1, tablet, By Mouth, Daily, # 90 tablet, Refills 0, Tot. Refills 0, Maintenance, 02/07/23 12:36:00 EDT, Route to Pharmacy Electronically, [facility] #[id number], Partial fill upon patient request if the prescription is for a schedule II o... Start Date: 02/07/23 Status: Ordered finasteride 5 mg oral tablet 1 tablet = 5 mg, By Mouth, Daily, # 90 tablet, 0 Refills, Maintenance, 02/07/23 12:28:00 EDT, Tablet, [facility] #[id number], Partial fill upon patient request if the prescription is for a schedule II opioid drug., 175, cm, 02/07/23 12:05:00 EDT,... Start Date: 02/07/23 Status: Ordered Flomax 0.4 mg oral capsule 0.4 mg, 1, capsule, By Mouth, Daily at bedtime, Maintenance, 05/07/24 9:43:00 EDT, Partial fill upon patient request if the prescription is for a schedule II opioid drug. Start Date: 05/07/24 Status: Ordered folic acid 0.8 mg oral tablet 1 tablet = 0.8 mg, By Mouth, Daily Start Date: 07/14/23 Status: Ordered gabapentin 300 mg oral capsule 300 mg, Capsule, By Mouth, 05/10/24 9:00:00 EDT Start Date: 05/10/24 Stop Date: 05/10/24 Status: Completed gabapentin 300 mg oral capsule 300 mg, 1, capsule, By Mouth, 2 times a day, # 60 capsule, Refills 3, Tot. Refills 3, Maintenance, 07/22/23 9:56:00 EST, Route to Pharmacy Electronically, [facility] #[id number], Partial fill upon patient request if the prescription is for a sche... Start Date: 07/22/23 Status: Ordered Humulin R (Concentrated) 500 units/mL subcutaneous 0 - 20 units, Subcutaneous Injection, 3 times a day before meals, 70-130=0 units 131-180=4 units 181-240=8 units 241-300=10 units 301-350=12 units 351-400=16 units >400=20 units and notify PCP, Maintenance, 05/07/24 9:40:00 EDT, Partial fill upo... Start Date: 05/07/24 Status: Ordered lactulose 10 gm/15 ml oral syrup See Instructions, PRN Other, Take 15 mL as needed for constipation, please maintain daily bowel movement, hold for excessive loose stool or diarrhea (more than 3 times a day)., # 480 mL, 0 Refills, Maintenance, 02/07/23 12:36:00 EDT, Syrup, [facility]... Start Date: 02/07/23 Status: Ordered Lipitor 40 mg oral tablet 1 tablet = 40 mg, By Mouth, Daily at bedtime, Maintenance, 05/07/24 9:35:00 EDT, Partial fill upon patient request if the prescription is for a schedule II opioid drug. Start Date: 05/07/24 Status: Ordered midodrine 10 mg oral tablet 1 tablet = 10 mg, By Mouth, 3 times a day, To help maintain systolic blood pressure above 110-120 mmHg, # 90 tablet, 2 Refills, Maintenance, 02/29/24 10:56:00 EDT, Tablet, [facility] 3, Partial fill upon patient request if the prescription... Start Date: 02/29/24 Status: Ordered midodrine 5 mg oral tablet 10 mg, Tablet, By Mouth, 05/10/24 15:00:00 EDT Start Date: 05/10/24 Stop Date: 05/10/24 Status: Completed pantoprazole 40 mg oral delayed release tablet 1 tablet = 40 mg, By Mouth, Daily, # 90 tablet, 0 Refills, Maintenance, 02/07/23 12:31:00 EDT, EC Tablet, 175, cm, 02/07/23 12:05:00 EDT, Height, 94, kg, 01/23/23 9:15:00 EDT, Dry Weight Start Date: 02/07/23 Status: Ordered spironolactone 25 mg oral tablet 25 mg, 1, tablet, By Mouth, Daily, Maintenance, 05/07/24 9:43:00 EDT, Partial fill upon patient request if the prescription is for a schedule II opioid drug. Start Date: 05/07/24 Status: Ordered torsemide 20 mg oral tablet 2 tablet = 40 mg, By Mouth, Daily, # 60 tablet, 0 Refills, Maintenance, 02/29/24 10:56:00 EDT, Tablet, [facility], Partial fill upon patient request if the prescription is for a schedule II opioid drug., missael Sampson, 02/29/24 10:17:00 EDT, H... Start Date: 02/29/24 Status: Ordered Tresiba FlexTouch 200 units/mL subcutaneous solution = 6 units, Subcutaneous Injection, Daily at bedtime Start Date: 07/14/23 Status: Ordered Trulicity Pen 0.75 mg/0.5 mL subcutaneous solution 0.5 mL = 0.75 mg, Subcutaneous Injection, Every Thursday, 0 Refills, Maintenance, 02/10/19 11:13:09 EDT, Solution Start Date: 02/10/19 Status: Ordered Vitamin B-12 500 mcg oral tablet 2 tablet = 1,000 mcg, By Mouth, Daily at bedtime, Maintenance, 05/07/24 9:44:00 EDT, Partial fill upon patient request if the prescription is for a schedule II opioid drug. Start Date: 05/07/24 Status: Ordered Zetia 10 mg oral tablet 1 tablet = 10 mg, By Mouth, Daily, # 90 tablet, 0 Refills, Maintenance, 02/07/23 12:33:00 EDT, Tablet, [facility] #[id number], Partial fill upon patient request if the prescription is for a schedule II opioid drug.Camilla cm, 02/07/23 12:05:00 EDT... Start Date: 02/07/23 Status: Ordered Problem List Condition Confirmation Course Effective Dates Status Health Status Informant Anemia Confirmed Active Bacteremia Confirmed Active Chronic kidney disease Confirmed Active Liver cirrhosis Confirmed Active CHF (congestive heart failure) Confirmed 2005 Active CAD (coronary artery disease), LAD Confirmed 08/01/13 Active COVID-19 1 Confirmed 05/10/24 Active Diabetes mellitus type 2, insulin Confirmed Active Lower extremity edema Confirmed Active Essential hypertension Confirmed Active Status post placement of cardiac pacemaker Confirmed Active Status post transcatheter aortic valve replacement (TAVR) using bioprosthesis Confirmed Active Hyperlipidemia Confirmed Active Hyperlipidemia Confirmed Active Infective endocarditis Confirmed Active Acute kidney injury Confirmed Active Iron deficiency anemia Confirmed Active Hypotension Confirmed Active Prostate cancer 2 Confirmed 2011 Active Neuropathy Confirmed Active ANUJA on CPAP Confirmed Active Old myocardial infarction, NSTEMI, s/p ZORA Confirmed 07/30/13 Active Pericardial effusion, s/p pericardiocentesis Confirmed 2005 Active Pulmonary HTN Confirmed Active Elevated serum creatinine Confirmed Active Abdominal distension Confirmed Active Weight gain Confirmed Active 1Problem added by Discern Expert 2Trelestar with 2 doses in September 2012 and again in February 2013. Urologist is Dr. Zafar [facility] ). Results Radiology Reports * Exam Date Time Procedure Performing Provider Status 05/06/24 6:55 PM Chest 2 Views Frontal and Lat Quinn Barth; Auth (Verified) Notes: (Chest 2 Views Frontal and Lat) Reason For Exam: Shortness of Breath, Fever;Other: RESULT: Chest 2 Views Frontal and Lat Chest 2 Views Frontal and Lat Reason: Other:; Shortness of Breath, Fever; Clinical Question(s): Pneumonia COMPARISON: 02/24/2024 FINDINGS: LINES AND TUBES: Dual-lead left subclavian pacer/AICD wires are intact. LUNGS AND PLEURA: Low lung volumes with mild basilar atelectasis. Lungs are otherwise clear with no consolidation. No pleural effusion. No pneumothorax. HEART, MEDIASTINUM AND KAYE: Heart is normal in size. Normal mediastinal and hilar contour. BONES AND SOFT TISSUES: No acute abnormality. IMPRESSION: No acute abnormality. WSN: [id number] Ordering Physician: Mallory Sharpe Dictated By: Gigi Lepe MD Dictated Date/Time: 05/06/24 6:57 pm Reviewed By: Gigi Lepe MD Signed By: Gigi Lepe MD Signed Date/Time: 05/06/24 6:57 pm Transcribed By: CALROS Transcribed Date/Time: 05/06/24 6:56 pm * Exam Date Time Procedure Performing Provider Status 05/06/24 6:[address] Head/Brain W/O Contrast Gallo Munoz [facility]; Auth (Verified) Notes: (CT Head/Brain W/O Contrast) Reason For Exam: Behavior Problem RESULT: CT Head/Brain W/O Contrast CT Head/Brain W/O Contrast INDICATION: Reason: Behavior Problem; Clinical Question(s): Hematoma; Order Comment: TECHNIQUE: Noncontrast head CT using axial technique and reconstructed in axial and coronal planes.Iterative reconstruction techniques are used to optimize dose and image quality. CTDIvol Head: 48.30 mGy, DLP Head: 773 mGy*cm. COMPARISON: None. FINDINGS: Tumbler Drier Operator view findings, lines and tubes: None. BRAIN AND EXTRA-AXIAL SPACES: No parenchymal hemorrhage, midline shift, or mass effect. Moncada-white matter differentiation is wellpreserved. No acute infarct. Negative insular ribbon sign. Atherosclerotic vascular calcification of the carotid arteries but negative hyperdense vessel sign. Moderate prominence of the ventricles and sulci consistent with parenchymal volume loss. Mild low-density white matter changes. No subarachnoid hemorrhage. No subdural or epidural collection. There is a 1.3 cm calcified nodule along the vertex left frontal convexity which could be due to a small meningioma versus inner table osteoma. There is no associated mass effect or edema. CALVARIUM, SKULL BASE, AND SOFT TISSUES: No fractures or suspicious bony lesions. The paranasal sinuses and mastoid air cells are clear. Visualized orbits and globes are intact. The extracranial soft tissues are unremarkable. IMPRESSION: No acute intracranial pathology. 1.3 cm calcified nodule along the vertex left frontal convexity which could be due to a small meningioma versus inner table osteoma. There is no associated mass effect or edema. WSN: [id number] Ordering Physician: Mallory Sharpe Dictated By: Mati Mejia MD Dictated Date/Time: 05/06/24 6:29 pm Reviewed By: Mati Mejia MD Signed By: Mati Mejia MD Signed Date/Time: 05/06/24 6:29 pm Transcribed By: CARLOS Transcribed Date/Time: 05/06/24 6:27 pm Vital Signs Most recent to oldest [Reference Range]: 1 2 3 Height 175.25 cm (05/10/24 4:50 AM) 175.25 cm (05/09/24 11:38 PM) 175.25 cm (05/09/24 8:24 PM) Weight 83.4 kg (05/07/24 2:12 AM) Oxygen Saturation [94-100 %] 98 % (05/10/24 7:00 AM) 98 % (05/10/24 4:50 AM) 99 % (05/09/24 11:38 PM) Pulse Rate [55-90 bpm] 68 bpm (05/10/24 2:35 PM) 70 bpm (05/10/24 9:44 AM) 68 bpm (05/10/24 7:00 AM) Body Mass Index [18.5-24.99 kg/m2] 27.16 kg/m2 *H* (05/07/24 2:12 AM) Blood Pressure [90-138/55-84 mm Hg] 107/47mm Hg (05/10/24 2:35 PM) 99/45mm Hg (05/10/24 9:44 AM) 119/57mm Hg (05/10/24 7:00 AM) Respiratory Rate [16-30 br/min] 16 br/min (05/10/24 9:46 AM) 18 br/min (05/10/24 7:00 AM) 18 br/min (05/10/24 4:50 AM) Temperature [96.8-100.4 DegF] 98.5 DegF (05/10/24 7:00 AM) 98.5 DegF (05/10/24 4:50 AM) 98.3 DegF (05/09/24 11:38 PM) Mode of Delivery (Oxygen) Room air (05/10/24 7:00 AM) Room air (05/10/24 4:50 AM) Room air (05/09/24 11:38 PM) Blood pressure sites Arm, right (05/10/24 7:00 AM) Arm, right (05/10/24 4:50 AM) Arm, right (05/09/24 11:38 PM) Temperature Route Oral (05/10/24 7:00 AM) Oral (05/10/24 4:50 AM) Oral (05/09/24 11:38 PM) Dry Weight 83.4 kg (05/07/24 2:12 AM) Weight Obtained Via Bed scale (05/07/24 2:12 AM) Dry Weight Obtained Via Bed scale (05/07/24 2:12 AM) Social History Social History Type Response Smoking Status Never (less than 100 in lifetime) entered on: 06/02/22 Sex Admission evaluation note * Pilo Verduzco MD, Essence: PERFORM, MODIFY, MODIFY Event Display: Admission Note Authored Date: Patient: ??GILLES WRIGHT ? Age:??79 Years?Sex:??Male?:??1945?? Chief Complaint/Reason for Consultation Pt JAMIE from [employer] parking lot, while in vehiclel called EMS, due to lethargy, low heart rate, generalized weakness that started an hour prior to shoping trip. Pt recieves blood transfusions biweekly, last transfusion 1 week ago. History of Present Illness 79-year-old patient with a complex medical history???including chronic kidney disease, coronary artery disease, aortic stenosis post-TAVR, complete heart block post-permanent pacemaker placement, heart failure with preserved ejection fraction, and decompensated liver cirrhosis (ascites, esophageal varices, MELD score 15, Child-Harry B)???presented to the emergency department with hypotension, COVID-19, and presyncope. The patient and his were diagnosed with COVID-19 two days prior. Today, after visiting [employer] he felt very lethargy, low heart rate, generalized weakness that started an hour prior to shopping trip??and admits to have forgetten to take his midodrine in the AM. A customer ( RN)??measured his blood pressure, found it low, and advised him to seek emergency care. Thepatient denies chest pain, palpitations, fever, chills, shortness of breath, rash, abdominal pain, diarrhea, constipation, dysuria, or hematuria. He is alert and oriented but exhibits baseline dysarthria with no other deficits. ?? In the emergency room, his initial high-sensitivity troponin was 28, which slightly decreased to27 on repeat testing. The CBC showed stable anemia at 7.8, with no leukocytosis, and his TSH levelswere normal. Ammonia was mildly elevated at 77. Blood pressure was recorded at a systolic value of 105. Upon reevaluation, the patient reported increased weakness over the past several days. Given the potential link between his hypotension and midodrine dosing, combined with his worsening weakness and current condition, admission is planned for COVID-19 management, presyncope, and further monitoring. Review of Systems General: Malaise. Good appetite. Denies fever, chills, sweats. Skin: Denies new rash, sores, lumps. HEENT: Denies vision changes, dizziness, headache, cold symptoms. Cardiac: Denies chest pain?? Vascular: Denies edema Pulmonary: cough. Denies SOB, wheeze. GI: Denies abdominal pain, nausea, vomiting, diarrhea, constipation. : Denies dysuria Neurological: Denies weakness, dizziness, syncope. Psych: Appropriate affect and mood. Engages appropriately. All other systems reviewed and negative except as noted in HPI?? Objective Measurements?? Height: 175.25 cm (05/07/24) Weight: 83.4 kg (05/07/24) Dry Weight: 83.4 kg (05/07/24) Body Mass Index:??27.16 kg/m2??High (05/07/24) ? Vital Signs?? Temperature: 98 DegF (05/07/24 11:40:00) Temperature Route: Oral (05/07/24 11:40:00) Pulse Rate: 62 bpm (05/07/24 11:40:00) Systolic Blood Pressure, Lyin mm Hg (05/07/24 10:27:00) Diastolic Blood Pressure, Lyin mm Hg (05/07/24 10:27:00) Systolic Blood Pressure, Sittin mm Hg (05/07/24 10:27:00) Diastolic Blood Pressure, Sittin mm Hg (05/07/24 10:27:00) Systolic Blood Pressure, Standin mm Hg (05/07/24 10:27:00) Diastolic Blood Pressure, Standin mm Hg (05/07/24 10:27:00) Respiratory Rate: 18 br/min (05/07/24 11:40:00) Systolic Blood Pressure: 110 mm Hg (05/07/24 11:40:00) Diastolic Blood Pressure:??41 mm Hg??Low (05/07/24 11:40:00) Blood pressure sites: Arm, right (05/07/24 11:40:00) Mean Arterial Pressure: 64 mm Hg (05/07/24 11:40:00) Pulse Pressure: 69 mm Hg (05/07/24 11:40:00) Oxygen Saturation: 97 % (05/07/24 11:40:00) Mode of Delivery (Oxygen): Room air (05/07/24 11:40:00) Early Warning Score: 3 (05/07/24 11:46:06) ? Physical Exam General: Well nourished, appears stated age, anxious in moderate distress. HEENT: moist oral mucosa. PERRLA, EOMI.?? NECK: No JVD. No bruits. Heart: Regular rate. S1 and s2 heard. No murmer, rub or gallop. Lungs: Clear to auscultation. No wheeze, crackles or rhonchi Abdomen : Soft, nondistended, nontender and bowel sounds are active. ??No organomegaly.?? Extremities: No pedal edema, swelling or cyanosis. peripheral pulses 2+ Neurological : grossly non focal. AA0 X3.?Dysarthria at baseline. Pscy: Mood and affect appropriate.? Assessment/Plan 79-year-old patient with a complex medical history???including chronic kidney disease, coronary artery disease, aortic stenosis post-TAVR, complete heart block post-permanent pacemaker placement, heart failure with preserved ejection fraction, and decompensated liver cirrhosis (ascites, esophageal varices, MELD score 15, Child-Harry B)???presented to the emergency department with hypotension in the setting of missed midodrine and COVID-19. ?? Generalized weakness Hypotension likely result of missing a dose of midodrine. Patient has no clinical signs of localized infection.?? Afebrile.?? Vital signs are stable after resuming meds.?? Workup has been so far unremarkable. CXR??No acute abnormality. Likely dehydration in the setting of COVID infection while patient is on a bunch of diuretics for underlying liver cirrhosis and heart failure.?? Encourage oral intake.?? Hold torsemide for 1 day.?? Hold off on any IV fluids for now.?? Recheck orthostatic vitals requested.?? PT consulted.?? Will obtain a set of blood culture and urine analysis to look for any signs of infection CT Head is unremarkable. ??No focal neuro-deficits. ??Patient has baseline dysarthria. ?? Orthostatic hypotension (I95.1): midodrine 5 mg TID to help with blood pressure while diuresing. ? COVID-19??without hypoxia:??Both patient and his were diagnosed with COVID- 19 two days prior to admission. stable no hypoxia.?? Monitor respiratory status closely.?? Continue isolation precautions ?? Coronary artery disease (I25.10) Aortic stenosis (I35.0) Status post transcatheter aortic valve replacement (TAVR) using bioprosthesis (Z95.3): Complete heart block (I44.2) Status post placement of cardiac pacemaker (Z95.0): Heart failure with preserved ejection fraction (I50.30): Continue aspirin, carvedilol, atorvastatin, Farxiga, Zetia, midodrine, spironolactone.?? Resume torsemide tomorrow.? Abnormal CT??head 1.3 cm calcified nodule along the vertex left frontal convexity which could be due to a small meningioma versus inner table osteoma. There is no associated mass effect or edema. ??Follow-up with PCP as an outpatient.? Other chronic medical problems Liver cirrhosis (K74.60): Adequately volume compensated.?? Continue spironolactone, torsemide, lactulose. Chronic anemia (D64.9)/Thrombocytopenia (D69.6): No signs of active bleeding.?? continue to monitor(transfuse for Hg bellow 7 and platelet bellow 20). HB 7.8 continue ferrous sulfate. Diabetes mellitus type 2, insulin (E11.9): Patient's takes Trulicity at home. Lantus 7 units daily with sliding scale and diabetic diet. Obstructive sleep apnea (G47.33): CPAP at night Benign prostatic hyperplasia (N40.0): need to clarify home medications Chronic kidney disease (N18.9): Creatinine at baseline. Hyperlipidemia (E78.5): Hold statin in setting of decompensated heart failure. ?? VTE Prophylaxis: hold chemical VTE prophylaxis given thrombocytopenia Code Status: DNR/DNI - confirmed with patient - he reports signing MOLST form at OSH. Both?? and are admitted in the hospital/sharing the same??room??in W4. ??Left a voicemail to speak with??Gisela son??for updates ?? I spent a total of 75??minutes today reviewing the chart/medical records, speaking with the patient, formulating and discussing the treatment plan and documenting the findings in encounter ?? Disclaimer: This dictation was accomplished with use of [employer] voice recognition software, proneto medical word misidentifications and grammatical errors. The physician does strive to identify and correct these, but some could still be present. Please do not hesitate to contact physician for cla rifications.?? Histories Allergies Allergies ?(Active and Proposed Allergies Only) Zestril? (Severity: Unknown severity, Onset: Unknown) TiZANidine Hydrochloride? (Severity: Unknown severity, Onset: Unknown) [...] OTW: 08/01/13 Endoscopy: 2011 Pericardiocentesis w/pericardial window: 2006 Trigger finger release of right middle finger [...] not start aspirin until 06/16/2022 Atorvastatin (Lipitor 40 mg oral tablet)?1?tab(s)?40?Milligram?By Mouth?Daily at bedtime Bethanechol (bethanechol 25 mg oral tablet)?25?Milligram?1?tablet?By Mouth?2 times a day Bumetanide (bumetanide 1 mg oral tablet)?1?Milligram?1?tablet?By Mouth?Daily Carvedilol (carvedilol 6.25 mg oral tablet)?6.25?Milligram?1?tablet?By Mouth?2 times a day with meals Cyanocobalamin (Vitamin B-12 500 mcg oral tablet)?2?tab(s)?1,000?Microgram?By Mouth?Daily at bedtime dapagliflozin (Farxiga 10 mg oral tablet)?1?tab(s)?10?Milligram?By Mouth?Daily dulaglutide (Trulicity Pen 0.75 mg/0.5 mL subcutaneous solution)?0.5?Milliliter?0.75?Milligram?Subcutaneous Injection?Every Thursday Durable Medical Equipment (Blood Pressure Monitor)?See Instructions?Blood pressure cuffICD: I10 Ezetimibe (Zetia 10 mg oral tablet)?1?tab(s)?10?Milligram?By Mouth?Daily Ferrous Sulfate (ferrous sulfate 325 mg oral enteric coated tablet)?325?Milligram?1?tablet?By Mouth?Daily Finasteride (finasteride 5 mg oral tablet)?1?tab(s)?5?Milligram?By Mouth?Daily Folic Acid (folic acid 0.8 mg oral tablet)?1?tab(s)?0.8?Milligram?By Mouth?Daily Gabapentin (gabapentin 300 mg oral capsule)?300?Milligram?1?capsule?By Mouth?2 times a day insulin degludec (Tresiba FlexTouch 200 units/mL subcutaneous solution)?6?unit(s)?Subcutaneous Injection?Daily at bedtime Insulin Regular Human (Humulin R (Concentrated) 500 units/mL subcutaneous)?0 - 20 units?Subcutaneous Injection?3 times a day before meals?70-130=0 -498=2 -900=0 [id number]=33 [id number]=24 [id number]=45 units>400=20 units and notify PCP Lactulose (lactulose 10 gm/15 ml oral syrup)?See [...] tablet)?1?tab(s)?40?Milligram?By Mouth?Daily Spironolactone (spironolactone 25 mg oral tablet)?25?Milligram?1?tablet?By Mouth?Daily Tamsulosin (Flomax 0.4 mg oral capsule)?0.4?Milligram?1?capsule?By Mouth?Daily atbedtime torsemide (torsemide 20 mg oral tablet)?2?tab(s)?40?Milligram?By Mouth?Daily ? Results Recent Labs BLOOD COUNT & DIFF WBC 4.1 k/mm3 ()?? 05/06/2024 18:39 RBC 2.90 m/mm3 (Low)?? 05/06/2024 18:39 Hgb 7.8 Gm/dL (Low)?? 05/06/2024 18:39 Hct 26.3 % (Low)?? 05/06/2024 18:39 MCV 90.7 femtoliters ()?? 05/06/2024 18:39 MCH 26.9 pg (Low)?? 05/06/2024 18:39 MCHC 29.7 g/dL (Low)?? 05/06/2024 18:39 Platelet Count 110 k/mm3 (Low)?? 05/06/2024 18:39 RDW-SD 54.2 femtoliters (High)?? 05/06/2024 18:39 MPV 11.1 femtoliters ()?? 05/06/2024 18:39 Nucleated RBC (Automated) 0.0 #/100 WBC'S ()?? 05/06/2024 18:39 Abs. NRBC 0.0 k/mm3 ()?? 05/06/2024 18:39 Abs. Neut 3.0 k/mm3 ()?? 05/06/2024 18:39 Abs. Lymph 0.5 k/mm3 (Low)?? 05/06/2024 18:39 Abs. Jefferson 0.4 k/mm3 ()?? 05/06/2024 18:39 Abs. Eo 0.1 k/mm3 ()?? 05/06/2024 18:39 Abs. Baso 0.0 k/mm3 ()?? 05/06/2024 18:39 Neut % 73.6 % ()?? 05/06/2024 18:39 Lymph % 12.3 % (Low)?? 05/06/2024 18:39 Jefferson % 10.3 % ()?? 05/06/2024 18:39 Eos % 2.9 % ()?? 05/06/2024 18:39 Baso % 0.7 % ()?? 05/06/2024 18:39 Imm Gran 0.2 % ()?? 05/06/2024 18:39 Abs. Imm Gran 0.0 k/mm3 ()?? 05/06/2024 18:39 ?? CARDIAC High Sensitivity Troponin (HSTnT) 27 ng/L (High)?? 05/06/2024 21:55 ?? CHEM GENERAL Sodium 140 mmol/L ()?? 05/06/2024 18:39 Potassium 4.1 mmol/L ()?? 05/06/2024 18:39 Chloride 109 mmol/L (High)?? 05/06/2024 18:39 Bicarbonate Level 22 mmol/L ()?? 05/06/2024 18:39 Anion Gap 9 ()?? 05/06/2024 18:39 Glucose Level 143 mg/dL (High)?? 05/06/2024 18:39 Glucose, POC 248 mg/dL (High)?? 05/07/2024 11:44 Beta Hydroxybutyrate <0.05 mmol/L ()?? 05/06/2024 18:39 BUN 43 mg/dL (High)?? 05/06/2024 18:39 Creatinine-Blood 1.46 mg/dL (High)?? 05/06/2024 18:39 Estimated GFR Creatinine 48 ML/MIN/1.73 M2 ()?? 05/06/2024 18:39 Calcium 7.4 mg/dL (Low)?? 05/06/2024 18:39 Magnesium 2.4 mg/dL (High)?? 05/06/2024 18:39 Protein, Total 5.2 Gm/dL (Low)?? 05/06/2024 18:39 Albumin 2.7 Gm/dL (Low)?? 05/06/2024 18:39 AG Ratio 1.1 ()?? 05/06/2024 18:39 Alkaline Phosphatase 214 units/L (High)?? 05/06/2024 18:39 AST (SGOT) 34 units/L ()?? 05/06/2024 18:39 ALT (SGPT) 28 units/L ()?? 05/06/2024 18:39 Bilirubin, Total 0.6 mg/dL ()?? 05/06/2024 18:39 Lactate 0.9 mmol/L ()?? 05/06/2024 18:39 ?? ENDOCRINE/TUMOR MARKER TSH 2.31 uIU/mL ()?? 05/06/2024 18:39 ?? MISC. CHEMISTRY Ammonia, Venous 77 ??mole/L (High)?? 05/06/2024 18:39 ?? URINE OTHER Est Creatinine Clearance 39.68 mL/min ()?? 05/07/2024 02:26 ?? VIROLOGY COVID-19 PCR Specimen Source NASAL ()?? 05/06/2024 20:10 COVID-19 PCR Result POSITIVE (Abnormal)?? 05/06/2024 20:10 ? EKG study * Event Display: ECG 12-Lead Authored Date: Please click on pdf link to open report * Event Display: ECG 12-Lead Authored Date: Ventricular Rate: 61 BPM Atrial Rate: 61 BPM P-R Interval: 176 ms QRS Duration: 154 ms Q-T Interval: 504 ms QTC Calculation(Bazett): 507 ms R Hinkley: -43 degrees T Hinkley: 103 degrees AV dual-paced rhythm Abnormal ECG When compared with ECG of 24-FEB-2024 14:11, Premature ventricular complexes are no longer Present Vent. rate has decreased BY 9 BPM Confirmed by KIRBY VERGARA MD ([id number]) on 05/07/2024 12:10:31 PM [place]: KIRBY VERGARA MD Cardiology * Event Display: Cardiac Rhythm Strips Authored Date: Hospital Progress note * Erma Martínez RN: PERFORM, SIGN, VERIFY Event Display: Progress Note Hospital Authored Date: Patient: GILLES WRIGHT Age: 79 years Sex: Male : 1945 Associated Diagnoses: None Author: Erma Martínez RN Findings Problem Related to Alteration in Respiratory Function (new) : Alteration in Respiratory Function/new 05/10/2024 10:00 EDT Alteration in Resp Status Related to COVID - 19 Goals & Outcomes, Respiratory Pt will maintain/resume baseline physical assessment, Pt will maintain adequate nutritional intake, Pt will maintain/resume normal fluid/electrolyte balance, Pt willnot develop complications r/t immobility Interventions, Respiratory Assess/monitor tolerance to IV infusions; verify rate/dose BH Goals/Interventions, Respiratory Yes Respiratory, Problem Start 05/07/2024 6:22 Reviewed Plan with, Respiratory Patient Patient Progression, Respiratory Patient progressing according to plan . Evaluation Pt alert and oriented. Paced on tele. RA. Takes medications whole. IV antibiotics. FSBG. Ambulates with a walker. PT following. Plan for DC today. Call allen and personal belongings within reach. . Discharge Information Case Management Discharge Plan : Case Management Discharge Plan Data 05/10/2024 10:14 EDT Discharge Level of Care at Discharge Homehealth/VNA Discharge VNA/Hospice/Home Care [place] [phone] Name of Agency #1 [place] [phone] Service Categories #1 Physical Therapy, Retirement Service Comments #1 You are being discharged to home with services for SN/PT from [place] [facility] [phone]. They will contact you in 1-2days to arrange an appt. Please call them at the number provided if you do not receive a call. Rehabilitation Discharge : Rehab Discharge Index 05/08/2024 11:43 EDT Comments on treatment indicated 79 yo M due to generalized weakness, hypotension, COVID-19. WBAT. Skilled PT indicated for bed mobility, transfers, ambulation, balance, stairs. Rec Rehab vs home with services if balance improves and stairs assessed. Walker: distance >50 Distance pt will ambulate >200 ft Full chart review completed Yes Hospital course Per medical chart: Pt T[facility]RELA from community, while in vehicle called EMS, due tolethargy, low HR, generalized weakness x 1 hour prior to shoping trip. Pt recieves blood transfusions biweekly, last transfusion 1 week ago. Covid positive x 2 days. Other findings Moderate complexity PT Eval this date due to reason for admission and PMHx impact onPT POC and functional mobility. See comment for full Eval note. Plan of care PT Gait training, Transfer training, Therapeutic exercise, Functional Activities, Balance training * Tyrel THORNE, Nadia: PERFORM, SIGN, VERIFY Event Display: Progress Note Hospital Authored Date: [id number] Patient: GILLES WRIGHT Age: 79 years Sex: Male : 1945 Associated Diagnoses: None Author: Tyrel THORNE, Nadia Findings Problem Related to Alteration in Respiratory Function (new) : Alteration in Respiratory Function/new 05/09/2024 13:00 EDT Alteration in Resp Status Related to COVID - 19 Goals & Outcomes, Respiratory Pt will maintain/resume baseline physical assessment, Pt will maintain adequate nutritional intake, Pt will maintain/resume normal fluid/electrolyte balance, Pt willnot develop complications r/t immobility Interventions, Respiratory Assess/monitor tolerance to IV infusions; verify rate/dose, Assess for and report S&S of respiratory distress, Position for comfort & optimal oxygenation BH Goals/Interventions, Respiratory Yes Respiratory, Problem Start 05/07/2024 6:22 Reviewed Plan with, Respiratory Patient Patient Progression, Respiratory Patient progressing according to plan . Evaluation Patient A+Ox3. on tele paced 55-67 bpm. Patient ambulates with cane/walker. IV ceftriaxone given asordered for UTI. pending cx. plan for patient to be dc tomorrow 05/10. maintain safety and comfort. call allen within reach. See CIS for further assessment.. Discharge Information Rehabilitation Discharge : Rehab Discharge Index 05/08/2024 11:43 EDT Comments on treatment indicated 79 yo M due to generalized weakness, hypotension, COVID-19. WBAT. Skilled PT indicated for bed mobility, transfers, ambulation, balance, stairs. Rec Rehab vs home with services if balance improves and stairs assessed. Walker: distance >50 Distance pt will ambulate >200 ft Full chart review completed Yes Hospital course Per medical chart: Pt TYRELA from community, while in vehicle called EMS, due tolethargy, low HR, generalized weakness x 1 hour prior to shoping trip. Pt recieves blood transfusions biweekly, last transfusion 1 week ago. Covid positive x 2 days. Other findings Moderate complexity PT Eval this date due to reason for admission and PMHx impact onPT POC and functional mobility. See comment for full Eval note. Plan of care PT Gait training, Transfer training, Therapeutic exercise, Functional Activities, Balance training * Pilo Verduzco MD, Essence: PERFORM Event Display: Progress Note Hospital Authored Date: [id number] Patient: ??GILLES WRIGHT ? Age:??79 Years?Sex:??Male?:??1945?? Subjective Reviewed overnight events.??patient reports weakness but gradually improving.?? Blood cultures are negative till date.?? Urine cultures are added on.?? Patient is tolerating IV ceftriaxone.?? Vitals are stable.?? PT recommended rehab however patient is refusing care home facility but is agreeable to home PT at this time.?? Case management to follow. Review of Systems As reviewed above. Objective Vital Signs?? Temperature: 98.4 DegF (05/09/24 08:20:00) Temperature Route: Oral (05/09/24 08:20:00) Pulse Rate: 55 bpm (05/09/24 08:49:00) Respiratory Rate: 16 br/min (05/09/24 09:49:00) Systolic Blood Pressure: 105 mm Hg (05/09/24 08:49:00) Diastolic Blood Pressure:??50 mm Hg??Low (05/09/24 08:49:00) Blood pressure sites: Arm, right (05/09/24 08:20:00) Mean Arterial Pressure: 68 mm Hg (05/09/24 08:20:00) Pulse Pressure: 55 mm Hg (05/09/24 08:20:00) Oxygen Saturation: 94 % (05/09/24 08:20:00) Mode of Delivery (Oxygen): Room air (05/09/24 08:20:00) Early Warning Score: 5 (05/09/24 12:06:53) ? Physical Exam General: Well nourished, appears stated age, anxious in moderate distress. HEENT: moist oral mucosa. PERRLA, EOMI.?? NECK: No JVD. No bruits. Heart: Regular rate. S1 and s2 heard. No murmer, rub or gallop. Lungs: Clear to auscultation. No wheeze, crackles or rhonchi Abdomen : Soft, nondistended, nontender and bowel sounds are active. ??No organomegaly.?? Extremities: No pedal edema, swelling or cyanosis. peripheral pulses 2+ Neurological : grossly non focal. AA0 X3.?Dysarthria at baseline. Pscy: Mood and affect appropriate. _ 72 Hour Antibiotic History Active Antibiotics Calendar Day Last Administered First Administered Ceftriaxone??1 Gm, 100 mL/hr, IVPB, Every 24 hours ?2 05/09/2024 08:48 05/08/2024 11:50 Results Recent Labs BACTERIOLOGY Blood Culture Results Preliminary report ()?? 05/07/2024 13:52 Blood Culture Isolate 1 Comment ()?? 05/07/2024 13:52 Blood Cult 2 Results Preliminary report ()?? 05/07/2024 13:52 Blood Culture 2 Isolate 1 Comment ()?? 05/07/2024 13:52 ?? BLOOD COUNT & DIFF WBC 5.3 k/mm3 ()?? 05/09/2024 09:29 RBC 3.19 m/mm3 (Low)?? 05/09/2024 09:29 Hgb 8.6 Gm/dL (Low)?? 05/09/2024 09:29 Hct 29.2 % (Low)?? 05/09/2024 09:29 MCV 91.5 femtoliters ()?? 05/09/2024 09:29 MCH 27.0 pg ()?? 05/09/2024 09:29 MCHC 29.5 g/dL (Low)?? 05/09/2024 09:29 Platelet Count 100 k/mm3 (Low)?? 05/09/2024 09:29 RDW-SD 53.9 femtoliters (High)?? 05/09/2024 09:29 MPV 10.6 femtoliters ()?? 05/09/2024 09:29 Nucleated RBC (Automated) 0.0 #/100 WBC'S ()?? 05/09/2024 09:29 Abs. NRBC 0.0 k/mm3 ()?? 05/09/2024 09:29 ?? CHEM GENERAL Sodium 138 mmol/L ()?? 05/09/2024 09:29 Potassium 5.1 mmol/L ()?? 05/09/2024 09:29 Chloride 108 mmol/L (High)?? 05/09/2024 09:29 Bicarbonate Level 20 mmol/L (Low)?? 05/09/2024 09:29 Anion Gap 10 ()?? 05/09/2024 09:29 Glucose Level 191 mg/dL (High)?? 05/09/2024 09:29 Glucose, POC 217 mg/dL (High)?? 05/09/2024 12:00 BUN 39 mg/dL (High)?? 05/09/2024 09:29 Creatinine-Blood 1.40 mg/dL (High)?? 05/09/2024 09:29 Estimated GFR Creatinine 50 ML/MIN/1.73 M2 ()?? 05/09/2024 09:29 Calcium 8.0 mg/dL (Low)?? 05/09/2024 09:29 Phosphorus 3.1 mg/dL ()?? 05/08/2024 07:56 Magnesium 2.4 mg/dL (High)?? 05/08/2024 07:56 ?? URINE OTHER Est Creatinine Clearance 41.38 mL/min ()?? 05/09/2024 11:13 ?? Assessment/Plan 79-year-old patient with a complex medical history???including chronic kidney disease, coronary artery disease, aortic stenosis post-TAVR, complete heart block post-permanent pacemaker placement, heart failure with preserved ejection fraction, and decompensated liver cirrhosis (ascites, esophageal varices, MELD score 15, Child-Harry B)presented to the emergency department with hypotension in the setting of missed midodrine and COVID-19. ?? Generalized weakness Hypotension likely result of missing a dose of midodrine. Likely dehydration in the setting of COVID infection while patient is on a bunch of diuretics for underlying liver cirrhosis and heart failure.?? Encourage oral intake.?C/w torsemide at a low dose.?CT Head is unremarkable. ??No focal neuro-deficits. ??Patient has baseline dysarthria. PT recommended rehab however patient is refusing care home facility but is agreeable to home PT at this time.?? Case management to follow ?? UTI: UA suggestive of UTI. ??No systemic symptoms. Afebrile. ??Vital signs are stable after resuming midodrine. Empirically starting patient on IV ceftriaxone.?Pending urine culture results.?blood cx-ve Till date. ?? Orthostatic hypotension (I95.1): Midodrine 5 mg TID to help with blood pressure while diuresing. ? COVID-19??without hypoxia:??Both patient and his were diagnosed with COVID- 19 two days prior to admission. stable no hypoxia.?? Monitor respiratory status closely.?? Continue isolation precautions ?? Coronary artery disease (I25.10) Aortic stenosis (I35.0) Status post transcatheter aortic valve replacement (TAVR) using bioprosthesis (Z95.3): Complete heart block (I44.2) Status post placement of cardiac pacemaker (Z95.0): Heart failure with preserved ejection fraction (I50.30): Continue aspirin, carvedilol, atorvastatin, Farxiga, Zetia, midodrine, spironolactone.?? c/w torsemide, low dose.? Abnormal CT??head 1.3 cm calcified nodule along the vertex left frontal convexity which could be due to a small meningioma versus inner table osteoma. There is no associated mass effect or edema. ??Follow-up with PCP as an outpatient.? Other chronic medical problems Liver cirrhosis (K74.60): Adequately volume compensated.?? Continue spironolactone, torsemide, lactulose. Chronic anemia (D64.9)/Thrombocytopenia (D69.6): No signs of active bleeding.?? continue to monitor(transfuse for Hg bellow 7 and platelet bellow 20). HB??8.6 continue ferrous sulfate. Diabetes mellitus type 2, insulin (E11.9): Patient's takes Trulicity at home. Lantus 7 units daily with sliding scale and diabetic diet. Obstructive sleep apnea (G47.33): CPAP at night Benign prostatic hyperplasia (N40.0): need to clarify home medications Chronic kidney disease (N18.9): Creatinine at baseline. Hyperlipidemia (E78.5): Hold statin in setting of decompensated heart failure. ?? VTE Prophylaxis: hold chemical VTE prophylaxis given thrombocytopenia Code Status: DNR/DNI - confirmed with patient - he reports signing MOLST form at OSH. Both?? and are admitted in the hospital/sharing the same??room??in W4.? Son updated on plan. likely d/c tomorrow ?? I spent a total of 40??minutes today reviewing the chart/medical records, speaking with the patient, formulating and discussing the treatment plan and documenting the findings in encounter ?? Disclaimer: This dictation was accomplished with use of [employer] voice recognition software, prone tomedical word misidentifications and grammatical errors. The physician does strive to identify and correct these, but some could still be present. Please do not hesitate to contact physician for clarifications.? Note * Rohini Bain RN: PERFORM Event Display: Discharge/Transfer Note Hospital Authored Date: [id number] Nursing Discharge Note Entered On: 05/10/2024 16:36 EDT Performed On: 05/10/2024 16:32 EDT by Rohini Bain RN Nursing Discharge Note 2 Discharge Time : 05/10/2024 16:30 EDT Tania Mendoza RN - 05/10/2024 16:40 EDT Discharge Level of Care at Discharge : Homehealth/VNA Discharge VNA/Hospice/Home Care(v001) : [facility] [phone] Patient Left Unit Via : Wheelchair Patient Accompanied Off Unit with : Responsible adult DC Instructions Provided & Signed by Pt : Yes Patient Understands D/C Instructions : Yes Patient Instructions Discharge Signed : Yes Did Pt have Specialty Bed or Wound Vac : No Rohini Bain RN - 05/10/2024 16:34 EDT * Pilo Verduzco MD, Essence: PERFORM Event Display: Discharge/Transfer Note Hospital Authored Date: Patient: ??GILLES WRIGHT ? Age:??79 Years?Sex:??Male?:??1945?? Patient Information Discharge Location: Primary Care Physician: Roberto Carlos Arzola Admit Date/Time: 05/06/24 23:41 Discharge Disposition Discharge Disposition: Home with Home Health Discharge Diagnosis COVID-19 (U07.1) Weakness (R53.1) Pre-syncope (R55) Uncomplicated UTI Orthostatic hypotension Generalized weakness Coronary artery disease Aortic stenosis status post TAVR Complete heart block status post pacemaker Heart failure with preserved EF Abnormal CT head Liver cirrhosis Diabetes Chronic anemia ANUJA BPH Chronic kidney disease _ Discharge Medications Alprazolam (ALPRAZolam 0.5 mg oral tablet)?0.5?Milligram?1?tablet?By Mouth?2 times a day?as needed?as needed for anxiety Amoxicillin-Clavulanate (Augmentin 875 mg-125 mg oral tablet)?1?tab(s)?By Mouth?Every 12 hours?for 5?Days Aspirin (aspirin 81 mg oral delayed release tablet)?81?Milligram?1?tablet?By Mouth?Daily?Do not start aspirin until 06/16/2022 Atorvastatin (Lipitor 40 mg oral tablet)?1?tab(s)?40?Milligram?By Mouth?Daily at bedtime Bethanechol (bethanechol 25 mg oral tablet)?25?Milligram?1?tablet?By Mouth?2 times a day Carvedilol (carvedilol 6.25 mg oral tablet)?6.25?Milligram?1?tablet?By Mouth?2 times a day with meals Cyanocobalamin (Vitamin B-12 500 mcg oral tablet)?2?tab(s)?1,000?Microgram?By Mouth?Daily at bedtime dapagliflozin (Farxiga 10 mg oral tablet)?1?tab(s)?10?Milligram?By Mouth?Daily dulaglutide (Trulicity Pen 0.75 mg/0.5 mL subcutaneous solution)?0.5?Milliliter?0.75?Milligram?Subcutaneous Injection?Every Thursday Durable Medical Equipment (Blood Pressure Monitor)?See Instructions?Blood pressure cuffICD: I10 Ezetimibe (Zetia 10 mg oral tablet)?1?tab(s)?10?Milligram?By Mouth?Daily Ferrous Sulfate (ferrous sulfate 325 mg oral enteric coated tablet)?325?Milligram?1?tablet?By Mouth?Daily Finasteride (finasteride 5 mg oral tablet)?1?tab(s)?5?Milligram?By Mouth?Daily Folic Acid (folic acid 0.8 mg oral tablet)?1?tab(s)?0.8?Milligram?By Mouth?Daily Gabapentin (gabapentin 300 mg oral capsule)?300?Milligram?1?capsule?By Mouth?2 times a day insulin degludec (Tresiba FlexTouch 200 units/mL subcutaneous solution)?6?unit(s)?Subcutaneous Injection?Daily at bedtime Insulin Regular Human (Humulin R (Concentrated) 500 units/mL subcutaneous)?0 - 20 units?Subcutaneous Injection?3 times a day before meals?70-130=0 -566=3 [id number]=6 [id number]=66 lzefb327-266=97 otbbu194-137=57 units>400=20 units and notify PCP Lactulose (lactulose 10 gm/15 ml oral syrup)?See [...] tablet)?1?tab(s)?40?Milligram?By Mouth?Daily Spironolactone (spironolactone 25 mg oral tablet)?25?Milligram?1?tablet?By Mouth?Daily Tamsulosin (Flomax 0.4 mg oral capsule)?0.4?Milligram?1?capsule?By Mouth?Daily atbedtime torsemide (torsemide 20 mg oral tablet)?2?tab(s)?40?Milligram?By Mouth?Daily -take 20 mg tablet for 5 days followed by 40 mg ?? Medications Started Augmentin?? Medications Discontinued None Doses Changed Torsemide PCP Follow-Up/Heads-Up Follow-up with PCP in about 1 to 2 weeks Objective 79-year-old patient with a complex medical history???including chronic kidney disease, coronary artery disease, aortic stenosis post-TAVR, complete heart block post-permanent pacemaker placement, heart failure with preserved ejection fraction, and decompensated liver cirrhosis (ascites, esophageal varices, MELD score 15, Child-Harry B)presented to the emergency department with hypotension in the setting of missed midodrine and COVID-19. ?? Generalized weakness Hypotension likely result of missing a dose of midodrine. Likely dehydration in the setting of COVID infection while patient is on a bunch of diuretics for underlying liver cirrhosis and heart failure.?? Encourage oral intake.?C/w torsemide at a low dose.?CT Head is unremarkable. ??No focal neuro-deficits. ??Patient has baseline dysarthria. PT recommended rehab however patient is refusing care home facility but is agreeable to home PT at this time.? UTI: UA suggestive of UTI. ??No systemic symptoms. Afebrile. ??Vital signs are stable after resuming midodrine. Empirically starting patient on IV ceftriaxone.?blood cx-ve Till date. Patient clinically improved with IV ceftriaxone. ??Transition to Augmentin on discharge. PCP to follow-up on urine culture results. ?? Orthostatic hypotension (I95.1): Midodrine 5 mg TID to help with blood pressure while diuresing. ? COVID-19??without hypoxia:??Both patient and his were diagnosed with COVID- 19 two days prior to admission. stable no hypoxia.?? Monitor respiratory status closely.?? Continue isolation precautions ?? Coronary artery disease (I25.10) Aortic stenosis (I35.0) Status post transcatheter aortic valve replacement (TAVR) using bioprosthesis (Z95.3): Complete heart block (I44.2) Status post placement of cardiac pacemaker (Z95.0): Heart failure with preserved ejection fraction (I50.30): Continue aspirin, carvedilol, atorvastatin, Farxiga, Zetia, midodrine, spironolactone.?? c/w torsemide, low dose.?? Recommended patient to take torsemide 20 mg for the next 5 days followed by 40 mg daily. ?? Abnormal CT??head 1.3 cm calcified nodule along the vertex left frontal convexity which could be due to a small meningioma versus inner table osteoma. There is no associated mass effect or edema. ??Follow-up with PCP as an outpatient.? Other chronic medical problems Liver cirrhosis (K74.60): Adequately volume compensated.?? Continue spironolactone, torsemide, lactulose. Chronic anemia (D64.9)/Thrombocytopenia (D69.6): No signs of active bleeding.?? continue to monitor(transfuse for Hg bellow 7 and platelet bellow 20). HB??8.6 continue ferrous sulfate. Diabetes mellitus type 2, insulin (E11.9): Resume home meds with diabetic diet. Obstructive sleep apnea (G47.33): CPAP at night Benign prostatic hyperplasia (N40.0): need to clarify home medications Chronic kidney disease (N18.9): Creatinine at baseline. Hyperlipidemia (E78.5): Hold statin in setting of decompensated heart failure. ?? VTE Prophylaxis: hold chemical VTE prophylaxis given thrombocytopenia Code Status: DNR/DNI - confirmed with patient - he reports signing MOLST form at OSH. Plan for discharge today with home with services. Gisela son is aware of the above plan Vital Signs?? Temperature: 98.5 DegF (05/10/24 07:00:00) Temperature Route: Oral (05/10/24 07:00:00) Pulse Rate: 68 bpm (05/10/24 07:00:00) Respiratory Rate: 18 br/min (05/10/24 07:00:00) Systolic Blood Pressure: 119 mm Hg (05/10/24 07:00:00) Diastolic Blood Pressure: 57 mm Hg (05/10/24 07:00:00) Blood pressure sites: Arm, right (05/10/24 07:00:00) Mean Arterial Pressure: 59 mm Hg (05/10/24 04:50:00) Pulse Pressure: 62 mm Hg (05/10/24 07:00:00) Oxygen Saturation: 98 % (05/10/24 07:00:00) Mode of Delivery (Oxygen): Room air (05/10/24 07:00:00) Early Warning Score: 3 (05/10/24 08:11:47) ? . Physical Exam General: Well nourished, appears stated age, anxious in moderate distress. HEENT: moist oral mucosa. PERRLA, EOMI.?? NECK: No JVD. No bruits. Heart: Regular rate. S1 and s2 heard. No murmer, rub or gallop. Lungs: Clear to auscultation. No wheeze, crackles or rhonchi Abdomen : Soft, nondistended, nontender and bowel sounds are active. ??No organomegaly.?? Extremities: No pedal edema, swelling or cyanosis. peripheral pulses 2+ Neurological : grossly non focal. AA0 X3.?Dysarthria at baseline. Pscy: Mood and affect appropriate. Pending Results Add On Lab Order ordered on 05/08/2024 Basic Metabolic Panel ordered on 05/10/2024 Patient Education Titles [employer] Patient Education - COVID-19?? [employer] Patient Education - COVID-19 Information for Families?? Follow-Up Appointments Added Follow Up ?Time Frame ?Comments Roberto Carlos Cisneros?1 to 2 weeks Post Discharge Care Diet: ??Cardiac diet ?? Activity: ??Ambulate with assistance 3 times a day unless otherwise specified ?? Code Status: ??No Resuscitation ?? Discharge ?05/10/24 9:39:00 EDT Discharge Prescriptions ?ePrescribed, 05/10/24 9:39:00 EDT Home Health Face to Face *Denotes mandatory kramer ?? *I certify that this patient is under my care and that I or an allowed non- physician working with me had a face to face encounter with the patient on this date:??05/10/2024 10:05 ?? *The encounter with the patient was in whole, or in part, for the following medical condition, which is the primary diagnosis(es) for home health care:??COVID-19 (U07.1) Weakness (R53.1) Pre-syncope (R55) ?? *Select the indications for the discipline/s that are being arranged for this patient. Nursing (select all that apply): [_] None [X] Medication management (reconciliation, teaching)?? [_] Chronic disease management?? [_] Wound care and treatment?? [_] Home safety evaluation [_] Administer SQ/IM/IV medications?? [_] Cath care?? [_] Drain care?? [_] Trach or GT care?? Other _ Occupation Therapy (select all that apply): [_] None [X] ADL Management [_] Fall prevention training [_] Energy conservation [_] Cognitive training Other _ Physical Therapy (select all that apply): [_] None [X] Functional mobility training [X] Home exercise program to strengthen [_] Increase ROM?? [_] Falls prevention training [_] Home maintenance program for chronic disease Other _ Speech Therapy (select all that apply): [_] None [_] Swallow evaluation and training [_] Speech and language training [_] Cognitive training to process, organize, and/or recall information Other _ ? *Homebound due to (select all that apply): [X] Inability to leave home without assistance/supervision [X] Inability to ambulate without assistance [_] Pain [_] Decreased strength and endurance [_] Unsteady gait [_] Severe SOB and fatigue [_] Impaired transfers [_] Inability to negotiate stairs [_] Limited weight bearing [_] Mental status change? *Physician Signature:??Pilo Verduzco ?? *By signing this, I certify that I have personally evaluated the patient and agree with the findings and recommendations as documented above. ? Results Discharge Labs BACTERIOLOGY Urine Culture Results Preliminary report ()?? 05/07/2024 18:38 Blood Culture Results Preliminary report ()?? 05/07/2024 13:52 Blood Culture Specimen Source BLOOD ()?? 05/07/2024 13:52 Blood Culture Isolate 1 Comment ()?? 05/07/2024 13:52 Blood Cult 2 Results Preliminary report ()?? 05/07/2024 13:52 Blood Culture 2 Specimen Source BLOOD ()?? 05/07/2024 13:52 Blood Culture 2 Isolate 1 Comment ()?? 05/07/2024 13:52 Urine Culture Specimen Source URINE ()?? 05/07/2024 18:38 Urine Culture Isolate 1 Comment ()?? 05/07/2024 18:38 ? BLOOD COUNT & DIFF WBC 5.3 k/mm3 ()?? 05/09/2024 09:29 RBC 3.19 m/mm3 (Low)?? 05/09/2024 09:29 Hgb 8.6 Gm/dL (Low)?? 05/09/2024 09:29 Hct 29.2 % (Low)?? 05/09/2024 09:29 MCV 91.5 femtoliters ()?? 05/09/2024 09:29 MCH 27.0 pg ()?? 05/09/2024 09:29 MCHC 29.5 g/dL (Low)?? 05/09/2024 09:29 Platelet Count 100 k/mm3 (Low)?? 05/09/2024 09:29 RDW-SD 53.9 femtoliters (High)?? 05/09/2024 09:29 MPV 10.6 femtoliters ()?? 05/09/2024 09:29 Nucleated RBC (Automated) 0.0 #/100 WBC'S ()?? 05/09/2024 09:29 Abs. NRBC 0.0 k/mm3 ()?? 05/09/2024 09:29 Abs. Neut 3.0 k/mm3 ()?? 05/06/2024 18:39 Abs. Lymph 0.5 k/mm3 (Low)?? 05/06/2024 18:39 Abs. Jefferson 0.4 k/mm3 ()?? 05/06/2024 18:39 Abs. Eo 0.1 k/mm3 ()?? 05/06/2024 18:39 Abs. Baso 0.0 k/mm3 ()?? 05/06/2024 18:39 Neut % 73.6 % ()?? 05/06/2024 18:39 Lymph % 12.3 % (Low)?? 05/06/2024 18:39 Jefferson % 10.3 % ()?? 05/06/2024 18:39 Eos % 2.9 % ()?? 05/06/2024 18:39 Baso % 0.7 % ()?? 05/06/2024 18:39 Imm Gran 0.2 % ()?? 05/06/2024 18:39 Abs. Imm Gran 0.0 k/mm3 ()?? 05/06/2024 18:39 ?? CARDIAC High Sensitivity Troponin (HSTnT) 27 ng/L (High)?? 05/06/2024 21:55 ? CHEM GENERAL Sodium 138 mmol/L ()?? 05/09/2024 09:29 Potassium 5.1 mmol/L ()?? 05/09/2024 09:29 Chloride 108 mmol/L (High)?? 05/09/2024 09:29 Bicarbonate Level 20 mmol/L (Low)?? 05/09/2024 09:29 Anion Gap 10 ()?? 05/09/2024 09:29 Glucose Level 191 mg/dL (High)?? 05/09/2024 09:29 Glucose, POC 133 mg/dL (High)?? 05/10/2024 08:09 Beta Hydroxybutyrate <0.05 mmol/L ()?? 05/06/2024 18:39 BUN 39 mg/dL (High)?? 05/09/2024 09:29 Creatinine-Blood 1.40 mg/dL (High)?? 05/09/2024 09:29 Estimated GFR Creatinine 50 ML/MIN/1.73 M2 ()?? 05/09/2024 09:29 Calcium 8.0 mg/dL (Low)?? 05/09/2024 09:29 Phosphorus 3.1 mg/dL ()?? 05/08/2024 07:56 Magnesium 2.4 mg/dL (High)?? 05/08/2024 07:56 Protein, Total 5.2 Gm/dL (Low)?? 05/06/2024 18:39 Albumin 2.7 Gm/dL (Low)?? 05/06/2024 18:39 AG Ratio 1.1 ()?? 05/06/2024 18:39 Alkaline Phosphatase 214 units/L (High)?? 05/06/2024 18:39 AST (SGOT) 34 units/L ()?? 05/06/2024 18:39 ALT (SGPT) 28 units/L ()?? 05/06/2024 18:39 Bilirubin, Total 0.6 mg/dL ()?? 05/06/2024 18:39 Lactate 0.9 mmol/L ()?? 05/06/2024 18:39 ?? ENDOCRINE/TUMOR MARKER TSH 2.31 uIU/mL ()?? 05/06/2024 18:39 ? MISC. CHEMISTRY Ammonia, Venous 77 ??mole/L (High)?? 05/06/2024 18:39 ? UA/URINALYSIS Appear/Color, Urine YELLOW ()?? 05/07/2024 18:38 Specific [place], Urine 1.020 ()?? 05/07/2024 18:38 pH, Urine 6.0 ()?? 05/07/2024 18:38 Albumin, Urine NEGATIVE ()?? 05/07/2024 18:38 Glucose, Urine 4+ (Abnormal)?? 05/07/2024 18:38 Ketones, Urine NEGATIVE ()?? 05/07/2024 18:38 Bilirubin, Urine NEGATIVE ()?? 05/07/2024 18:38 Hemoglobin, Urine NEGATIVE ()?? 05/07/2024 18:38 Nitrite, Urine NEGATIVE ()?? 05/07/2024 18:38 Leukocyte, Urine 3+ (Abnormal)?? 05/07/2024 18:38 Urobilinogen NORMAL mg/dL ()?? 05/07/2024 18:38 WBC's, Urine >182 /HPF (High)?? 05/07/2024 18:38 RBC's, Urine 2 /HPF ()?? 05/07/2024 18:38 Bacteria SLIGHT HPF (Abnormal)?? 05/07/2024 18:38 WBC Clumps SLIGHT /HPF ()?? 05/07/2024 18:38 Hold Urine Culture Testing available 48 hours from time of collection. ()?? 05/07/2024 18:38 ?? URINE OTHER Est Creatinine Clearance 41.38 mL/min ()?? 05/09/2024 11:13 ? VIROLOGY COVID-19 PCR Specimen Source NASAL ()?? 05/06/2024 20:10 COVID-19 PCR Result POSITIVE (Abnormal)?? 05/06/2024 20:10 ? 45 ??minutes spent on discharge * Erma Martínez RN: PERFORM Event Display: Patient Education/Instruction Authored Date: Inpatient Adult Discharge Instructions. [address] [address] Name: GILLES WRIGHT : 1945?? Visit: 05/06/2024 23:41?? Current Date: 05/10/2024 10:14 ?? Account: [id number]?? Inpatient Adult Discharge Instructions We would like [...] and their families. Surveys are administered by [employer] ?? If further treatment with your primary care physician or another doctor is recommended, it is important for you to keep the appointment. Call your primary care physician or return to the Emergency Department immediately if your condition worsens, fails to improve, or new symptoms develop. If you need to find a doctor, you can call [facility] for a referral at [phone] or toll free at [phone] ([phone] or log in to [email or web address].. ?? [facility], in keeping with [facility] guidance, no longer requires face masks [...] a health care zoe of your choosing. [employer] is a website that allows you to securely view your medical information including your hospital discharge summary, office visit summaries, medications and follow-up visits. You can also request appointments, renew medications, and request access to your medical information using a health care zoe of your choosing, or just ask a question. You can enroll at [email or web address] or register during your next office visit. You have been discharged from [facility], Patient Care Unit: W4??. If you have any questions regarding these instructions, including results of studies pending, afteryou leave, please call us and we will be happy to assist you 06/04. [facility] Your Care Team Attending Physician Essence May MD?? Consulting Providers Essence May MD?? Discharging Providers Pilo Verduzco MD, Essence Reason for Your Visit Pt JAMIE from [employer] parking lot, while in vehiclel called EMS, due to lethargy, low heart rate, generalized weakness that started an hour prior to shoping trip. Pt recieves blood transfusions biweekly, last transfusion 1 week ago.?? Your Diagnosis General medical Tests Performed Below is a partial list of the tests performed during your hospitalization. You may have had other tests and procedures not included in this list. Please discuss all test results with your provider. Ammonia Venous Basic Metabolic Panel Beta Hydroxybutyrate Blood Culture Blood Culture #2 Blood Culture 2 Results Blood Culture Result CBC CBC w/ Differential Comprehensive Metabolic Panel COVID-19 (2019 Novel Coronavirus) PCR GLUCOSE POC High??Sensitivity??Troponin T Lactate Level Magnesium Level Phosphorus Level TSH with T4 Reflex (Adults Only) Urinalysis w/hold for Urine Culture Urine Culture Result Urine Culture, Routine CT Head/Brain W/O Contrast XR Chest 2 Views Frontal and Lat Add On Lab Order?? Ammonia Venous?? Basic Metabolic Panel?? Beta Hydroxybutyrate?? Blood Culture?? Blood Culture #2?? Blood Culture 2 Results?? Blood Culture Result?? CBC?? CBC w/ Differential?? COVID-19 (2019 Novel Coronavirus) PCR?? CT Head/Brain W/O Contrast?? Comprehensive Metabolic Panel?? Glucose POC?? High??Sensitivity??Troponin T?? Lactic Acid Level (Lactate Level)?? Magnesium Level?? Phosphorus Level?? TSH with T4 Reflex (Adults Only)?? Urinalysis w/hold for Urine Culture?? Urine Culture (Urine Culture, Routine)?? Urine Culture Result?? Chest 2 Views Frontal and Lat (XR Chest 2 Views Frontal and Lat)?? Primary Care Provider Roberto Carlos Arzola? Advance Directive Health Care Proxy on File Yes - Health Care Proxy Discharge Vitals Temperature: 98.5 DegF Height: 175.25 cm Pulse Rate: 70 bpm Weight: 83.4 kg Respiratory Rate: 16 br/min Body Mass Index:??27.16 kg/m2??High Systolic Blood Pressure: 99 mm Hg Body surface area: 2.01 Diastolic Blood Pressure:??45 mm Hg??Low ?? Oxygen Saturation: 98 % ?? Studies Pending All studies ordered during this hospital stay have been completed unless listed below. Please discuss all pending results with your provider listed above in these instructions. ?? Add On Lab Order?? Basic Metabolic Panel?? What to do next Instructions From Your Doctor ?? Orders??:Cardiac diet :Ambulate with assistance ??3 times a day ??unless otherwise specified Status: ??No Resuscitation? 05/10/24 9:39:00 EDT?? Prescriptions??, ??05/10/24 9:39:00 EDT?? You Need to Schedule the Following Appointments Follow Up with??Roberto Carlos Cisneros When:??Within 1 to 2 weeks Where: [address] [place] [address]- Business (1) Discharge Medications GILLES WRIGHT :1945 Visit Date:05/06/2024 Medications: Please continue your medications until treatment is completed or stopped by your provider. Medications not listed below should be discontinued. Discuss any questions related to medications with your provider. What How Much When Instructions Next Dose New Amoxicillin-Clavulanate (Augmentin 875 mg-125 mg oraltablet) 1 tab(s) Oral Every 12 hours Duration: 5 Days Pickup at [facility] 3 Tomorrow morning??05/11 Unchanged Alprazolam (ALPRAZolam 0.5 mg oral tablet) 1 tab(s) Oral Twice a day as needed for as needed for anxiety As needed Unchanged Aspirin (aspirin 81 mg oral delayed release tablet) 1 tab(s) Oral Daily Do not start aspirin until 2021 ?? Tomorrow 05/11 Unchanged Atorvastatin (Lipitor 40 mg oral tablet) 1 tab(s) Oral Daily at Bedtime 05/10 Unchanged Bethanechol (bethanechol 25 mg oral tablet) 1 tab(s) Oral Twice a day 05/10 Unchanged Carvedilol (carvedilol 6.25 mg oral tablet) 1 tab(s) Oral Two times a day with meals 05/10 Unchanged Cyanocobalamin (Vitamin B-12 500 mcg oral tablet) 2 tab(s) Oral Daily at Bedtime 05/10 Unchanged dapagliflozin (Farxiga 10 mg oral tablet) 1 tab(s) Oral Daily Tomorr05/11 Unchanged dulaglutide (Trulicity Pen 0.75 mg/ 0.5 mL subcutaneous solution) 0.5 Milliliter Subcutaneous Injection Every Thursday Every Thursday Unchanged Durable Medical Equipment (Blood Pressure Monitor) See instructions Blood pressure cuff ?? ICD: I10 ?? Unchanged Ezetimibe (Zetia 10 mg oral tablet) 1 tab(s) Oral Daily Tomorr05/11 Unchanged Ferrous Sulfate (ferrous sulfate 325 mg oral enteric coated tablet) 1 tab(s) Oral Daily Tomorr05/11 Unchanged Finasteride (finasteride 5 mg oral tablet) 1 tab(s) Oral Daily Tomorr05/11 Unchanged Folic Acid (folic acid 0.8 mg oral tablet) 1 tab(s) Oral Daily Tomorr05/11 Unchanged Gabapentin (gabapentin 300 mg oral capsule) 1 capsule Oral Twice a day 05/10 Unchanged insulin degludec (Tresiba FlexTouch 200 units/ mL subcutaneous solution) 6 unit(s) Subcutaneous Injection Daily at Bedtime 05/10 Unchanged Insulin Regular Human (Humulin R (Concentrated) 500 units/ mL subcutaneous) 0 - 20 units Subcutaneous Injection 3 times a day before meals 70-130=0 units 131-180=4 units 181-240=8 units 241-300=10 units 301-350=12 units 351-400=16 units >400=20 units and notify PCP ?? Before??meals Unchanged Lactulose (lactulose 10 gm/ 15 ml oral syrup) See instructions Take 15 mL as needed for constipation, please maintain daily bowel movement, hold for excessive loose stool or diarrhea (more than 3 times a day)., As needed for Other ?? As needed Unchanged Midodrine (midodrine 10 mg oral tablet) 1 tab(s) Oral 3 times a day To help maintain systolic blood pressure above 110-120 mmHg ?? 3 times a day Unchanged Pantoprazole (pantoprazole 40 mg oral delayed release tablet) 1 tab(s) Oral Daily Tomorrow 05/11 Unchanged Spironolactone (spironolactone 25 mg oral tablet) 1 tab(s) Oral Daily Tomorrow 05/11 Unchanged Tamsulosin (Flomax 0.4 mg oral capsule) 1 capsule Oral Daily at Bedtime Tonight 05/10 Unchanged torsemide (torsemide 20 mg oral tablet) 2 tab(s) Oral Daily take onyl 1 tab for 5 days and then resume 2 tab ?? Tomorrow 05/11 [facility] [address], [place] [id number] [phone] ?? What How Much When Comments Stop Taking Bumetanide (bumetanide 1 mg oral tablet) 1 tab(s) Oral Daily Prescription Given During Visit Amoxicillin-Clavulanate (Augmentin 875 mg-125 mg oral tablet) - 1 tablet, By Mouth, Every 12 hours,# 10 tablet, 0 Refills, [facility] [place] [phone]?? Laboratory Results Below is a partial list of the most recent Laboratory test results done prior to this discharge. You may have had other tests and procedures not included in this list. Please discuss all test resultswith your provider. Est Creatinine Clearance - 41.38 mL/min (05/09/2024) Ammonia Venous (05/06/2024) ???Ammonia, Venous - 77 ??mole/L Basic Metabolic Panel (05/09/2024) ???Sodium - 138 mmol/L???Potassium - 5.1 mmol/L???Chloride - 108 mmol/L???Bicarbonate Level - 20 mmol/L???Anion Gap - 10???Glucose Level - 191 mg/dL???BUN - 39 mg/dL???Creatinine-Blood - 1.40 mg/dL???Estimated GFR Creatinine - 50 ML/MIN/1.73 M2???Calcium - 8.0 mg/dL Beta Hydroxybutyrate (05/06/2024) ? ?Beta Hydroxybutyrate - <0.05 mmol/L Blood Culture (05/07/2024) ???Blood Culture Results - Preliminary report???Blood Culture Specimen Source - BLOOD Blood Culture #2 (05/07/2024) ???Blood Cult 2 Results - Preliminary report???Blood Culture 2 Specimen Source - BLOOD Blood Culture 2 Results (05/07/2024) ???Blood Culture 2 Isolate 1 - Comment Blood Culture Result (05/07/2024) ???Blood Culture Isolate 1 - Comment CBC (05/09/2024) ???WBC - 5.3 k/mm3???RBC - 3.19 m/mm3???Hgb - 8.6 Gm/dL???Hct - 29.2 %???MCV - 91.5 femtoliters???MCH - 27.0 pg???MCHC - 29.5 g/dL???Platelet Count - 100 k/mm3???RDW-SD - 53.9 femtoliters???MPV - 10.6 femtoliters???Nucleated RBC (Automated) - 0.0 #/100 WBC'S???Abs. NRBC - 0.0 k/mm3 CBC w/ Differential (05/06/2024) ???WBC - 4.1 k/mm3???RBC - 2.90 m/mm3???Hgb - 7.8 Gm/dL???Hct - 26.3 %???MCV - 90.7 femtoliters???MCH - 26.9 pg???MCHC - 29.7 g/dL???Platelet Count - 110 k/mm3???RDW-SD - 54.2 femtoliters???MPV - 11.1 femtoliters???Nucleated RBC (Automated) - 0.0 #/100 WBC'S???Abs. NRBC - 0.0 k/mm3???Abs. Neut - 3.0 k/mm3???Abs. Lymph - 0.5 k/mm3???Abs. Jefferson - 0.4 k/mm3???Abs. Eo - 0.1 k/mm3???Abs. Baso - 0.0 k/mm3???Neut % - 73.6 %???Lymph % - 12.3 %???[place] % - 10.3 %???Eos % - 2.9 %???Baso % - 0.7 %???Imm Gran - 0.2 %???Abs. Imm Gran - 0.0 k/mm3 Comprehensive Metabolic Panel (05/06/2024) ???Sodium - 140 mmol/L???Potassium - 4.1 mmol/L???Chloride - 109 mmol/L???Bicarbonate Level - 22 mmol/L???Anion Gap - 9???Glucose Level - 143 mg/dL???BUN - 43 mg/dL???Creatinine-Blood - 1.46 mg/dL???Estimated GFR Creatinine - 48 ML/MIN/1.73 M2???Calcium - 7.4 mg/dL???Protein, Total - 5.2 Gm/dL???Albumin - 2.7 Gm/dL???AG Ratio - 1.1???Alkaline Phosphatase - 214 units/L???AST (SGOT) - 34 units/L???ALT (SGPT) - 28 units/L???Bilirubin, Total - 0.6 mg/dL COVID-19 (2019 Novel Coronavirus) PCR (05/06/2024) ???COVID-19 PCR Specimen Source - NASAL???COVID-19 PCR Result - POSITIVE GLUCOSE POC (05/10/2024) ???Glucose, POC - 133 mg/dL High??Sensitivity??Troponin T (05/06/2024) ???High Sensitivity Troponin (HSTnT) - 27 ng/L Lactate Level (05/06/2024) ???Lactate - 0.9 mmol/L Magnesium Level (05/08/2024) ???Magnesium - 2.4 mg/dL Phosphorus Level (05/08/2024) ???Phosphorus - 3.1 mg/dL TSH with T4 Reflex (Adults Only) (05/06/2024) ???TSH - 2.31 uIU/mL Urinalysis w/hold for Urine Culture (05/07/2024) ???Appear/Color, Urine - YELLOW???Specific [place], Urine - 1.020???pH, Urine - 6.0???Albumin, Urine - NEGATIVE???Glucose, Urine - 4+???Ketones, Urine - NEGATIVE???Bilirubin, Urine - NEGATIVE???Hemoglobin, Urine - NEGATIVE???Nitrite, Urine - NEGATIVE???Leukocyte, Urine - 3+???Urobilinogen - NORMAL???WBC's, Urine - >182 /HPF? ?RBC's, Urine - 2 /HPF? ?Bacteria - SLIGHT? ?WBC Clumps - SLIGHT? ?Hold Urine Culture - Testing available 48 hours from time of collection. Urine Culture Result (05/07/2024) ???Urine Culture Isolate 1 - Comment Urine Culture, Routine (05/07/2024) ???Urine Culture Results - Preliminary report???Urine Culture Specimen Source - URINE You will be contacted within 72 hours with your results. Allergies (NKA means No Known Allergies) Latex??(Rash) TiZANidine Hydrochloride??(hallucination) Zestril lisinopril??(throat swelling) pregabalin??(hallucination) Problems Active Problems??(27) Abdominal distension?? Acute kidney injury?? Anemia?? Bacteremia?? CAD (coronary artery disease), LAD?? CHF (congestive heart failure)?? Chronic kidney disease?? COVID-19?? Diabetes mellitus type 2, insulin?? Elevated serum [...] Discharge Instructions. [employer] Patient Education - COVID-19?? [employer] Patient Education - COVID-19 Information for Families?? Valuables and Belongings I fully understand and agree that [facility] accepts no responsibility for all my [...] to send valuables and belongings home. ?? Date for Pt to Sign Valuables/Belongings: 05/07/24 20:48:00 ?? Other Discharge Information ? Pulmonary Rehab Status?? Pulmonary Rehab Discharge Status?? Respiratory Rate: 16 br/min ? Common Emergency Awareness Tips IS [...] are strongly encouraged to quit. Please call [employer] [facility] at [phone] or [phone] ([phone]) or log in to [email or web address] for referrals to smoking cessation programs. ?? 388 Suicide & Crisis Lifeline is available 06/04 if you or someone you know needs to find a reason to keep living. By calling 114 you'll be connected to a skilled, trained counselor at a crisis center in your area. INPATIENT DISCHARGE INSTRUCTIONS SIGNATURE PAGE GILLES WRIGHT Location:[facility] Registration Date and Time:05/06/2024 23:41 EDT Primary Care Physician: Roberto Carlos Arzola, Attending Physician: Essence May MD, I GILLES WRIGHT, have received the above patient education materials/instructions and have verbalized understanding. If ambulance or transport services are being used I further acknowledge being given a choice of service. ?? If you need to contact me, please call me at this number: . Patient/Interviewing Clerk Name: Patient/Interviewing Clerk Signature: Relationship to Patient: Witness Name/Signature: Date: * Essence May MD: PERFORM, SIGN, VERIFY Event Display: Patient Education Handout Authored Date: [id number] * Essence May MD: PERFORM Event Display: Patient Education Leaflets Authored Date: [id number] COVID-19 ?? [id number] COVID-19 COVID-19 is an illness that infects the lungs. You may hear it called COVID or coronavirus disease 2019. It's caused by a type of coronavirus. The virus is called SARS-CoV-2. There are many types of coronaviruses. They are a common cause of colds and bronchitis. They can cause a lung infection called pneumonia. Symptoms can range from mild to severe. Some people have no symptoms. These types of viruses are also found in some animals. Viruses change (mutate) all the time. The changes lead to different forms of a virus. These are called variants. COVID-19 variants may spread more easily from person to person. They may cause milder symptoms. Or they may cause more severe symptoms.?? The virus spreads and infects people easily. It can infect a person more easily if they are not immune to it. The virus most often spreads through droplets of fluid that a person coughs or sneezes into the air. In some cases, you can get it from touching a surface with the virus on it and then touching your eyes, nose, or mouth. To help prevent spreading the infection, wash your hands often, or use an alcohol-based hand community service officer. To learn more For the latest from the CDC: ? Go to the CDC website ??? Call 056-OJB-NBVJ (063-106-1287) ? What are the symptoms of COVID-19? Some people have no symptoms. Some have mild symptoms. Others may have severe symptoms. This variesfrom person to person. Symptoms may start 2 to 14 days after contact with the virus. They can include: ??? Fever ??? Chills ??? Coughing ??? Trouble breathing or feeling short of breath ??? Sore throat ??? Stuffy or runny nose ??? Headache ??? Body aches ??? Tiredness ??? Nausea, vomiting, diarrhea, or belly pain ??? New loss of sense of smell or taste ?? What are possible complications of COVID-19? The virus can cause an infection in the lungs. This is called pneumonia. This can lead to in some cases. Experts are still learning more about COVID-19 problems. Problems may include: ??? Low blood pressure ??? Kidney failure ??? Inflammation of the brain or heart ??? Rashes Some people are at higher risk for problems. This includes: ??? Older adults ??? People with heart or lung disease ??? People with diabetes or kidney disease ??? People with health conditions that limit the immune system ??? People who take medicines that limit the immune system Rarely, a child may have a severe complication. This is called multisystem inflammatory syndrome inchildren (MIS-C). MIS-C seems to be like Kawasaki disease. This is a rare illness. It causes swelling of blood vessels and body organs. MIS can also happen in adults. But this is less common. ? How is COVID-19 diagnosed? Your healthcare provider will ask: ??? What symptoms you have ??? If you've had recent close contact with someone known to have COVID-19 ??? Where you live ??? If you???ve traveled recently ??? If you???ve had contact with sick people??? If you are vaccinated against COVID- 19 ??? If you have had COVID-19 You may have one of these tests for COVID-19: ??? Viral (molecular) test. You may also hear this called a PCR or RT-PCR test. Viral tests are very accurate. A viral test looks for the genetic material (RNA) of the SARS-CoV-2 virus. There are a few ways to do this. A swab may be wiped inside your nose or throat. Or a long swab may be put into your nose down to the back of your throat. Or a sample of your saliva may be taken. Your test results may be back in 45 minutes to a few hours. This depends on the type of test. Some tests must be sentto a lab. These can take several days for the results. You can now get test kits to use at home. Some of these need a prescription. Follow the instructions in the kit closely if you use a home kit. Some kits show results quickly at home. Others must be sent to a lab for the results. ??? Antigen test. This can find proteins from the SARS-CoV-2 virus. A swab may be wiped inside your nose or throat.Or a long swab may be put into your nose down to the back of your throat. Some results are back within 15 to 60 minutes. This depends on the type of test. Positive results are very accurate. But false positive results can happen. And the results can be negative even in people with COVID-19. Antigentests are more likely to miss a COVID-19 infection than a viral (molecular) test. You may need to have a viral test if your antigen test is negative but you have symptoms of COVID-19. ??? Breath test. This rapid test is not widely available at this time. It finds SARS-CoV-2 infection in the breath.The test is done at healthcare providers' offices, hospitals, and mobile testing sites. You may have other tests if your provider thinks or confirms that you have COVID-19. These tests may include: ??? Antibody blood test. This type of test can show if you had the virus in the past. It shows antibodies for the virus in the blood. The accuracy of these tests varies. And they are not available everywhere. An antibody test may not show if you have an infection right now. This is because it can take up to a few weeks for your body to make antibodies. None of the antibody tests can yet be used to tell if a person is immune to the virus. ??? Sputum culture. If you have a wet cough, you may be asked to cough up a bit of mucus (sputum) from your lungs. This is tested for the virus. It may be tested for pneumonia. ??? Imaging tests. You may have a chest X-ray or CT scan. Can you get COVID-19 again? Yes, you can get COVID-19 more than once. You may not have immunity. You could have lost the immunity. Or you may get COVID-19 from a different strain (variant) of the virus that you are not immune to. But the COVID-19 vaccine helps lower the risk for COVID-19. ?? Vaccines for COVID-19 The FDA and CDC advise the 8746-0584 updated COVID-19 vaccines for people 6 months and older to protect against COVID-19. These vaccines are [employer], [employer], or [employer]. The vaccines can also make the illness less severe should you still get COVID-19. The vaccines can keep you from needingto go to the hospital. And they can prevent the spread of the virus to others. No vaccine is 100% effective at preventing an illness. But getting a vaccine is important. or people are also advised to be vaccinated. COVID-19 vaccines are given as a shot (injection) into the muscle. Ask your healthcare provider which vaccine is best for you and your loved ones. ?? How is COVID-19 treated? The best treatments right now are those to help your body while it fights the virus. This is calledsupportive care. It includes: ??? Rest. This helps your body fight the illness. ??? Fluids. Try to drink 6 to 8 glasses of fluidsevery day. Ask your healthcare provider which drinks are best for you. Don't have drinks with caffeine or alcohol. ??? Dzkf-ncj-hgozuub (OTC) medicine. These are used to help ease pain and reduce fever. Ask your provider which OTC medicine is safe for you to use. Talk with your provider if you have confirmed COVID-19. You may qualify for medicines approved by the FDA to prevent severe COVID-19 infection. You may need to stay in the hospital for severe illness. Your care may include: ??? IV fluids. These are given through a vein. This helps to replace fluids in your body. ??? Oxygen. You may be given extra oxygen. Or you may be put on a breathing machine (ventilator). This is done so you get enough oxygen in your body. ??? Prone positioning. Your healthcare team may regularly turn you on your stomach. This is called prone positioning. It helps increase the amount of oxygen you get to your lungs.Follow their instructions on position changes while you're in the hospital and at home. ??? Antiviral medicines. Antivirals stop the SARS-CoV-2 virus from spreading in the body. The FDA has approved certain antiviral medicines to treat mild to moderate COVID-19 in people who are more likely to get very sick. These treatments are not available for everyone. Talk with your provider to learn more. ??? Steroids or other anti-inflammatory medicines. These are used to lessen the inflammation that some people with COVID-19 have. Inflammation can lead to more trouble breathing. It can cause other complications or . ??? Monoclonal antibodies. These were once used for earlier COVID-19 strains, but monoclonal antibody treatment is not effective for the latest variant. Talk with your provider herminio more. ??? COVID-19 convalescent plasma. Plasma is the liquid part of blood. People who had COVID-19 may be asked to donate plasma. This is called COVID-19 convalescent plasma. The plasma may have antibodies. Some people with COVID-19 who have very weak immune systems may benefit from this treatment. Your provider can help decide if it's right for you. ?? Are you at risk for COVID-19? You are at risk for COVID-19 if any of these apply to you: ??? You live in or traveled to an area with cases of COVID-19 ??? You had close contact (within 6 feet) with someone who had COVID-19 COVID-19 may be spread by people who don't show symptoms. Date last modified: 10/29/2023 ?? Last Reviewed Date: 2023 ?? [id number] [employer]. All rights reserved. This information is not intended as a substitute for professional medical care. Always follow your healthcare professional's instructions. ?? * Pilo Verduzco MD, Essence: PERFORM Event Display: Patient Education Leaflets Authored Date: [id number] COVID-19 Information for Families ?? 87 COVID-19 Information for Families Information from: www.cdc.gov/COVID19 ? What is coronavirus disease 2019 (COVID-19)? Coronavirus disease 2019 (COVID-19) is a respiratory illness that can spread from person to person.The virus that causes COVID-19 is a NEW [facility] ?? How does COVID-19 spread? The virus that causes COVID-19 probably emerged from an animal source, but is now spreading from person to person. The virus spreads mainly between people who are in close contact with one another (within 6 feet) through respiratory droplets produced when an infected person coughs or sneezes. It may be possible that a person can get COVID-19 by touching a surface or object that has the virus on it and then touching their own mouth, nose or eyes. ?? What are the symptoms? (*Most common in children) ??? Fever* ??? Runny nose ??? Aching muscles ??? Cough* ??? Sore throat ??? Congestion ??? A few can have vomiting & diarrhea ?? When should a symptomatic person seek medical care? When symptoms are getting worse ??? Breathing is more difficult ?? Call the doctor immediately if: ??? Breathing is labored ??? Tightness in chest ??? Bluish lips or face ??? New confusion or cannotarouse BEFORE seeking care, call your doctor and tell them you are Being evaluated for COVID-19. ?? What can I do to protect myself and my family from getting COVID-19? Avoid close contact with people who are sick ??? Avoid touching your eyes, nose and mouth with unwashed hands ??? Wash your hands often with soap and water for at least 20 seconds. Especially: - Before you eat, prepare food or feed your children - After diapering an or using the bathroom - Use an alcohol-based hand community service officer if soap and water are not available ?? For cleaning use: ? ? Soap & water For disinfection use: ??? Most common EPA-registered household disinfectants should be effective ??? Alcohol solutions with at least 70% alcohol ??? Diluted bleach: - 1 tsp bleach - 1 cup of water ?? What if someone I live with has symptoms? Symptomatic people should: ??? Stay home: - In an area apart from family and pets - With a separate bathroom if possible ??? Restrict activities outside your home except for medical care ??? Cover coughs or sneezes with a tissue or your elbow (discard tissue immediately) ??? Clean and disinfect frequently touched objects and surfaces every day ??? Avoid sharing personal household items: food, drink, dishes, utensils, towels, and bedding ? Is it okay for a mother with symptoms to breastfeed her ? Breast milk is the best source of nutrition for most infants. However, much is unknown about COVID-19. Whether to start or continue should be determined by the mother in coordination with her healthcare provider. A mother with confirmed or symptoms of COVID-19 should take all possibleprecautions to avoid spreading the virus to her infant, including washing her hands before touchingthe and wearing a face mask, if possible, while feeding at the breast. If expressing breast milk with a manual or electric breast pump, the mother should wash her hands before touching any pump or bottle parts and follow recommendations for proper pump cleaning after each use. If possible, consider having someone who is well feed the expressed breast milk to the . ? * Event Display: Provider Clarification Note Please click on pdf link to open report Patient Care team information Care Team Personnel Name: Steff Puentes RN Position: [facility] RN Member Role: Primary Care Nurse Name: Kalyani Miller LPN Position: S RN Member Role: Primary Care Nurse Name: Nadiya Coleman RN Position: [facility] RN Member Role: Primary Care Nurse Name: Tripp Machado RN Position: S RN Member Role: Primary Care Nurse Name: Sobia Hilliard RN Position: [facility] RN Supv Member Role: Primary Care Nurse Name: Lupe Díaz RN Position: [facility] RN Member Role: Primary Care Nurse Name: Betsy Solano RN Position: [facility] RN Member Role: Primary Care Nurse Name: Prema Ponce RN Position: [facility] RN Member Role: Primary Care Nurse Name: Andrew Burks RN Position: [facility] RN Supv Member Role: Primary Care Nurse Name: Lorraine Araujo RN Position: [facility] LIANET Nurse Member Role: Primary Care Nurse Name: Adryan Rm RN Position: [facility] RN Member Role: Primary Care Nurse Name: Roberto Carlos Arzola Position: Reference Physician Member Role: PCP Address: Address: [address] [place] [address] [address] [place], [place] [address] Name: Fely Gaspar RN Position: [facility] RN Member Role: Primary Care Nurse Name: Tonya Up RN Position: [facility] RN Member Role: Primary Care Nurse Name: Matheus [place] RN Position: [facility] RN Member Role: Primary Care Nurse Name: Kraolina Barcenas RN Position: [facility] RN Member Role: Primary Care Nurse Name: Mercedes Maki RN Position: S RN Member Role: Primary Care Nurse Name: Edna Horner RN Position: S RN Member Role: Primary Care Nurse Name: Jarvis Bautista RN Position: [facility] RN Member Role: Primary Care Nurse Name: Aguila Acevedo LPN Position: S RN Member Role: Primary Care Nurse Name: Les Sahu MD Position: [facility] Renal MD Member Role: Lifetime Consulting Physician Address: Address: [address] [place] [address] [address] [facility] [place] [address]- Name: Gabby Ma RN Position: [facility] Office Staff Member Role: Primary Care Nurse Name: Nadia Lainez RN Position: [facility] RN Member Role: Primary Care Nurse Name: Yohannes Watson RN Position: [facility] RN Member Role: Primary Care Nurse Name: Omer Moreno MD Position: [facility] Renal MD Member Role: Lifetime Consulting Physician Address: Address: [address] [place] [address] [facility] [place] [address]- Name: Juan David Weiner RN Position: S RN Member Role: Primary Care Nurse Name: Staci Salgado LPN Position: S RN Member Role: Primary Care Nurse Name: Zo Vivar RN Position: S RN Member Role: Primary Care Nurse Name: Anh Batista RN Position: [facility] RN Member Role: Primary Care Nurse Name: Elizabeth Zabala RN Position: [facility] RN Member Role: Primary Care Nurse Care Team Related Persons Name: DES WRIGHT Address: home [address] [place] [address] Name: GISELA WRIGHT Address: [place] [address] Name: SURI FLOYD Address: home [address] [place] [address]
--- OUTSIDE RECORDS SUMMARY | 2024-08-13 07:33 | XMS_ITS | Continuity of Care Document ---
Author Organization [facility] Address [address] [place] [address]- Care Team Providers Care Material Requisitioner Name Role Phone Roberto Carlos Arzola Primary Care Physician Encounter 05/11/24 - 06/02/24 [facility] [address] [place] [address]- Discharge Disposition: GOALS MET Allergies, Adverse Reactions, Alerts Substance Reaction Severity Status lisinopril 1 throat swelling Active Zestril Active TiZANidine Hydrochloride hallucination Ac tive Latex [...] 02/07/23 12:28:00 EDT, Route to Pharmacy Electronically, [facility] #[id number], Partial fill upon patient request if t... [...] 0 Refills, Maintenance, 02/07/23 12:33:00 EDT, Tablet, [facility] #[id number], Partial fill upon patient request if the prescription is for a schedule II opioid drug., 175, cm, 02/07/23 12:05:00 EDT... Start Date: 02/07/23 Status: Ordered ferrous sulfate 325 mg oral enteric coated tablet 325 mg, 1, tablet, By Mouth, Daily, # 90 tablet, Refills 0, Tot. Refills 0, Maintenance, 02/07/23 12:36:00 EDT, Route to Pharmacy Electronically, [facility] #[id number], Partial fill upon patient request if the prescription is for a schedule II o... Start Date: 02/07/23 Status: Ordered finasteride 5 mg oral tablet 1 tablet = 5 mg, By Mouth, Daily, # 90 tablet, 0 Refills, Maintenance, 02/07/23 12:28:00 EDT, Tablet, [facility] #[id number], Partial fill upon patient request if the [...] 07/22/23 9:56:00 EST, Route to Pharmacy Electronically, [facility] #[id number], Partial fill upon patient request if the [...] 0 Refills, Maintenance, 02/07/23 12:36:00 EDT[facility] Start Date: 02/07/23 Status: Ordered Lipitor 40 [...] 2 Refills, Maintenance, 02/29/24 10:56:00 EDT, Tablet, [facility], Partial fill upon patient request if the prescription... Start Date: 02/29/24 Status: Ordered pantoprazole 40 mg oral delayed [...] 0 Refills, Maintenance, 02/29/24 10:56:00 EDT, Tablet, [facility], Partial fill upon patient request [...] 0 Refills, Maintenance, 02/07/23 12:33:00 EDT, Tablet, [facility] #[id number], Partial fill upon patient request if the [...] February 2013. Urologist is Dr. [facility] ). Social History Social History Type Response Smoking Status Never (less than 100 in lifetime) entered on: 06/02/22 Sex Patient Care team information Care Team Personnel Name: Steff Puentes RN Position: S RN Member Role: Primary Care Nurse Name: Kalyani Miller LPN Position: [facility] RN Member Role: Primary Care Nurse Name: Nadiya Coleman RN Position: [facility] RN Member Role: Primary Care Nurse Name: Tripp Machado RN Position: [facility] RN Member Role: Primary Care Nurse Name: Sobia Hilliard RN Position: S RN Supv Member Role: Primary Care Nurse Name: Lupe Díaz RN Position: S RN Member Role: Primary Care Nurse Name: Betsy Solano RN Position: S RN Member Role: Primary Care Nurse Name: Prema Ponce RN Position: S RN Member Role: Primary Care Nurse Name: Andrew Burks RN Position: [facility] RN Supv Member Role: Primary Care Nurse Name: Lorraine Araujo RN Position: [facility] AMB Nurse Member Role: Primary Care Nurse Name: Adryan Rm RN Position: [facility] RN Member Role: Primary Care Nurse Name: Roberto Carlos Arzola Position: Reference Physician Member Role: PCP Address: Address: [address] [place] [address] [address] [place] [address]- [place] Name: Fely Gaspar RN Position: [facility] RN Member Role: Primary Care Nurse Name: Tonya Up RN Position: [facility] RN Member Role: Primary Care Nurse Name: Matheus [place] RN Position: [facility] RN Member Role: Primary Care Nurse Name: Karolina Barcenas RN Position: [facility] RN Member Role: Primary Care Nurse Name: Mercedes Maki RN Position: [facility] RN Member Role: Primary Care Nurse Name: Edna Horner RN Position: [facility] RN Member Role: Primary Care Nurse Name: Jarvis Bautista RN Position: [facility] RN Member Role: Primary Care Nurse Name: Aguila Acevedo LPN Position: [facility] RN Member Role: Primary Care Nurse Name: Les Sahu MD Position: [facility] Renal MD Member Role: Lifetime Consulting Physician Address: Address: [address] [place] [address] [address] [facility] [place] [address]- Name: Gabby Ma RN Position: [facility] [place] Office Staff Member Role: Primary Care Nurse Name: Nadia Lainez RN Position: [facility] RN Member Role: Primary Care Nurse Name: Yohannes Watson RN Position: [facility] RN Member Role: Primary Care Nurse Name: Omer Moreno MD Position: [facility] Renal MD Member Role: Lifetime Consulting Physician Address: Address: [address] [place] [address] [facility] [place] [address]- Name: Juan David Weiner RN Position: [facility] OB RN Member Role: Primary Care Nurse Name: Staci Salgado LPN Position: [facility] RN Member Role: Primary Care Nurse Name: Zo Vivar RN Position: [facility] RN Member Role: Primary Care Nurse Name: Anh Batista RN Position: [facility] RN Member Role: Primary Care Nurse Name: Elizabeth Zabala RN Position: [facility] RN Member Role: Primary Care Nurse Care Team Related Persons Name: DES WRIGHT Address: home [address] [place] [address] Name: GISELA WRIGHT Address: [place] [address] Name: SURI FLOYD Address: home [address] [place] [address]
[2024-08-13 07:34] LABS: INTERNATIONAL NORM RATIO 1.3 (0.9-1.1); Prothrombin Time 15.3 SEC (10.9-12.4)
[2024-08-13 07:43] LABS: Magnesium 2.3 mg/dL (1.6-2.6)
[2024-08-13 07:45] LABS: Alanine Aminotransferase 19 U/L (0-40); Alkaline Phosphatase 185 U/L (39-117); Anion Gap 13 (12-20); Aspartate Amino Transferase 38 U/L (5-37); Bilirubin Total 1.2 mg/dL (0.0-1.0); Blood Urea Nitrogen 46 mg/dL (9-16); Calcium 7.9 mg/dL (8.4-10.2); Carbon Dioxide 23 mmol/L (22-29); Chloride 113 mmol/L (96-108); Creatinine Clr Calc Pharmacy 36.7; Estimated Glomerular Filt Rate 38; Glucose Random 141 mg/dL (60-115); Potassium 4.5 mmol/L (3.3-5.1); Sodium 144 mmol/L (135-145); Total Protein 6.7 g/dL (6.5-8.0)
[2024-08-13 07:48] LABS: B Type Natriuretic Peptide 423 pg/mL (<100)
[2024-08-13 08:04] VITALS: BP 134/59; PULSE 76; RESP 16; O2SAT 95
[2024-08-13 08:13] LABS: Appearance Urine Clear; Color Urine Yellow; Glucose Urine UA >=1000 mg/dL (Negative); Leukocyte Esterase Urine Negative (Negative); Nitrite Urine Negative (Negative); UMIC TRIGGER UACC YES; Urine Blood Negative (Negative); Urine Ketones Negative (Negative); Urine Protein Trace mg/dL (Neg-Trace)
[2024-08-13 09:04] LABS: Bacteria Urine None Seen (None Seen); Hyaline Casts Urine 0-2 /LPF (0-2); RBC Urine 0-2 /HPF (0-2); Squamous Epithelial Cell Urine 0-2 /HPF (0-2); WBC Urine 0-5 /HPF (0-5)
[2024-08-13] MEDS: Bumetanide 1 MG/4 ML VIAL IVPUSH (09:08)
[2024-08-13 09:10] VITALS: BP 143/52; PULSE 88; RESP 16; O2SAT 98
[2024-08-13 11:02] VITALS: BP 125/50; PULSE 78; RESP 18; TEMP -17.7; TEMP 0; O2SAT 95
== END 2024-08-13 11:03 | disposition home or self-care (01) ==
PROVIDERS: Registered Nurse Emergency; Emergency Provider Emergency Medicine; PCP Physician Assistant
DX: R60.0 Localized edema (principal); M79.605 Pain in left leg; M79.604 Pain in right leg; E11.9 Type 2 diabetes mellitus without complications; I10 Essential (primary) hypertension; E78.5 Hyperlipidemia, unspecified; Z79.4 Long term (current) use of insulin; Z79.85 Long-term (current) use of injectable non-insulin antidiabetic drugs; Z79.02 Long term (current) use of antithrombotics/antiplatelets; Z79.899 Other long term (current) drug therapy
CPT/HCPCS: 36415; 80053; 81001; 83735; 83880; 85025; 85610; 93970; 96374; 99284; J1939

== ENCOUNTER 2024-08-15 08:09 | Outpatient (REF) | payer MEDICARE, SELFPAY | END 2024-08-15 08:10 | disposition home or self-care (01) | LOC: HO.LHD 08:09 | PROVIDERS: Visit Provider Internal Medicine | DX: Z13.89 Encounter for screening for other disorder (principal) ==

== ENCOUNTER 2024-08-16 20:26 | Inpatient (IN) | payer MEDICARE, SELFPAY ==
[2024-08-16 20:28] VITALS: BP 129/66; PULSE 93; O2SAT 100
[2024-08-16 20:37] VITALS: BMI 29.0
[2024-08-16 20:45] VITALS: BP 136/53; PULSE 78; RESP 16; TEMP 36.8; O2SAT 98
--- NOTE | 2024-08-16 21:37 | MHC.EDTECH ---
Walk patient to bathroom and he was changed over
--- NOTE | 2024-08-16 21:39 | ED_ITS ---
HPI - Altered Mental Status General Chief Complaint: Altered Mental Status Stated Complaint: forgetting more than usual, hx dementia Time Seen by Provider: 08/16/24 21:33 Source: patient Mode of arrival: EMS Limitations: no limitations History of Present Illness ED Provider: HPI narrative: 79-year-old male has a complex medical history including hepatic cirrhosis complicated by esophageal varices and ascites, insulin-dependent type 2 diabetes, diabetic 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, hypertension, hyperlipidemia, a history of prostate cancer, obstructive sleep apnea (ANUJA) on CPAP, chronic iron deficiency anemia requiring frequent transfusions , a history of coronary artery disease (CAD) no longer on antiplatelets, chronic thrombocytopenia due to liver disease, and status post transcatheter aortic valve replacement (TAVR). comes here as he has been more confused and forgetful patient does have elevated ammonia level in the past on 08/09 was 96 Related Data Home Medications ?Medication ?Instructions ?Recorded ?Confirmed lactulose 10 gram/15 mL oral 30 ml PO BID 04/14/24 07/27/24 solution Previous Rx's ?Medication ?Instructions ?Recorded blood pressure test kit-large #1 ea 11/21/21 flash glucose scanning reader #1 ea 10/03/22 (FreeStyle Marleni 14 Day Collins) flash glucose sensor (FreeStyle #2 ea 10/03/22 Marleni 14 Day Sensor kit) lancets 28 gauge (FreeStyle #100 ea 10/21/23 Lancets) blood sugar diagnostic (FreeStyle #100 ea 03/09/24 Test strips) blood-glucose meter (FreeStyle #1 ea 03/09/24 Lite Meter kit) pen needle, diabetic 32 gauge x #150 ea 03/09/24 (BD Gifty 2nd Gen Pen Needle) pen needle, diabetic 32 gauge x #50 ea 03/09/24 (BD Ultra-Fine Gifty Pen Needle) blood sugar diagnostic (Prodigy No #100 ea 03/19/24 Coding strips) blood-glucose meter (Prodigy #1 ea 03/22/24 Pocket Meter kit) tamsulosin 0.4 mg capsule 0.4 mg PO DAILY 90 days #90 caps 05/04/24 insulin degludec 100 unit/mL (3 8 unit (0.08 mL) subcut BEDTIME 30 05/17/24 mL) subcutaneous pen (Tre days #15 mL FlexTouch U-100 insulin) insulin lispro 100 unit/mL 1 sliding scale dose subcut TID 30 05/23/24 subcutaneous pen (Admelog SoloStar days #15 mL U-100 Insulin lispro) midodrine 10 mg tablet 10 mg PO TID hypotension 30 days 05/30/24 #90 tabs finasteride 5 mg tablet (Proscar) 5 mg PO DAILY 90 days #90 tabs 06/06/24 gabapentin 300 mg capsule 300 mg PO BID 30 days #60 caps 06/06/24 dulaglutide 0.75 mg/0.5 mL 0.75 mg (0.5 mL) subcut MO #2 mL 06/13/24 subcutaneous pen injector (Trulicity) ferrous sulfate 325 mg (65 mg 325 mg PO DAILY #90 tabs 06/24/24 iron) tablet,delayed release carvedilol 6.25 mg tablet 6.25 mg PO BID 30 days #60 tabs 06/30/24 ezetimibe 10 mg tablet (Zetia) 10 mg PO DAILY #30 tabs 06/30/24 atorvastatin 80 mg tablet 40 mg (1/2 x 80 mg) PO BEDTIME #90 07/07/24 tabs dapagliflozin propanediol 10 mg 10 mg PO DAILY 30 days #30 tabs 07/07/24 tablet (Farxiga) pantoprazole 40 mg tablet,delayed 40 mg PO DAILY #30 tabs 07/07/24 release bumetanide 1 mg tablet 1 mg PO DAILY 90 days #90 tabs 07/18/24 cyanocobalamin (vitamin B-12) 500 1,000 mcg (2 x 500 mcg) PO BEDTIME 07/23/24 mcg tablet #90 tabs spironolactone 25 mg tablet 25 mg PO DAILY 30 days #30 tabs 07/23/24 alprazolam 0.5 mg tablet 0.5 mg PO BID PRN Anxiety 30 days 07/25/24 #60 tabs amoxicillin 875 mg-potassium 1 tab PO BID 7 days #14 tabs 07/27/24 clavulanate 125 mg tablet bumetanide 2 mg tablet 2 mg PO DAILY 30 days #30 tabs 07/27/24 diclofenac sodium 1 % topical gel 2 g topical QID #100 grams 08/13/24 Allergies Allergy/AdvReac Type Severity Reaction Status Date / Time KARL Inhibitors Allergy Severe Angioedema Verified 08/16/24 20:38 dextran 40 [DEXTRAN 40] Allergy Intermediate tachycardia Verified 08/16/24 20:38 latex [LATEX] Allergy Mild BLISTERS Verified 08/16/24 20:38 lisinopril [From Zestril] Allergy Mild Unknown Verified 08/16/24 20:38 Iodinated Contrast Media Allergy Unknown UNKNOWN Verified 08/16/24 20:38 [CONTRAST,IV] Review of Systems 2 Review of Systems: Yes all other systems are reviewed and are negative [facility] Past Medical History Medical History Cognitive impairment DMII (diabetes mellitus, type 2) Hyperglycemia Symptomatic anemia Difficulty walking Anemia 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 Streptococcal bacteremia Fracture of left humerus History of prostate cancer Acute lower gastrointestinal bleeding COVID-19 vaccine series completed Hypertension Dyslipidemia Diabetic nephropathy associated with type 2 diabetes mellitus Diabetic 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 associated with type 2 diabetes mellitus 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 Diabetes type 2, uncontrolled Varices of esophagus determined by endoscopy Esophageal varices without bleeding KOEHLER (dyspnea on exertion) Chronic fatigue Iron deficiency anemia CAD (coronary artery disease) ANUJA on CPAP Prostate cancer Spinal stenosis On beta kayy at home IBS (irritable colon syndrome) Aortic stenosis HTN (hypertension) Polyneuropathy GERD (gastroesophageal reflux disease) Surgical History S/P infectious endocarditis H/O cataract extraction Hx of endoscopy History of colonoscopy Hx of esophagogastroduodenoscopy Hx of colonoscopy History of surgery History of transurethral resection of prostate History of surgery History of heart artery stent Family History Family History Father CVD (cardiovascular disease) Past heart attack Mother CVD (cardiovascular disease) Brain cancer Heart problem Daughter Breast cancer Sister Breast cancer Son Alive and well Family/Other Myocardial infarction Liver cancer Social History Social History Household Members: Spouse Household Members Other:: Myesha Housing: House Are you a primary ambulatory care nurse to a significant other at home: No Do you presently have visiting nurse or other home services: Yes Alcohol intake: never Patient Tobacco Use Status: Never used Tobacco Smoked in Last 30 Days: No e-Cigarette/Vaping Use: Never Used Second Hand Smoke Exposure: No Use of substances other than those prescribed or required for medical reasons: No Advance Directives: Yes Advance Directives on File: Yes Advance Directives Date on File: 08/31/23 Do you have a plan to hurt others: No Plan service: Yes Current occupational status: retired Cognitive needs: No Hearing needs: No Vision needs: Yes Physical Exam ED Vital Signs: Vital Signs - 24 hr 08/16/24 20:45 08/16/24 22:31 08/17/24 00:00 Temperature 98.3 F 97.4 F 98.5 F Pulse Rate 78 80 80 Respiratory Rate 16 16 16 Blood Pressure 136/53 L 114/60 119/44 L Pulse Oximetry 98 97 95 Oxygen Delivery Method Room Air Room Air Room Air BMI result Body Mass Index 29.0 Appearance: Alert. Oriented X3. No acute distress. Eyes: PERRLA, No Nystagmus ENT: Pharynx normal. Oral Mucosa moist Neck: Normal inspection. Neck supple. CVS: Normal heart rate and rhythm. Pulses normal. Respiratory: No respiratory distress. Equal air entry bilateral, no wheezing/rales/rhonchi Abdomen: Soft and nontender. ascitis+ hepatic flap++ Bowel sounds are present, no mass palpable, no CVA tenderness Skin: Skin warm and dry. Normal skin color. Normal skin turgor. Extremities: No lower extremity edema. No calf tenderness Neuro: Oriented X 3. No motor deficit. No sensory deficit.No cerebellar signs , cranial nerves II-XII intact Medications Administered Discontinued Medications Generic Name Dose Route Start Last Admin Trade Name Ricardoq PRN Reason Stop Dose Admin Sodium Chloride 1,000 mls @ 999 mls/hr 08/17/24 01:26 08/17/24 03:03 Ns IV 08/17/24 02:26 Infused .Q1H1M ONE Infusion Lactulose 30 gm 08/17/24 01:27 08/17/24 02:22 Lactulose 20 Gm/30 Ml Solution PO 08/17/24 01:28 30 gm ONCE ONE Administration Lactulose 30 gm 08/17/24 03:23 08/17/24 04:24 Lactulose 20 Gm/30 Ml Solution PO 08/17/24 03:24 30 gm ONCE ONE Administration Lactulose 30 gm 08/17/24 06:00 08/17/24 06:00 Lactulose 20 Gm/30 Ml Solution PO 08/17/24 06:01 30 gm ONCE ONE Administration Medical Decision Making Medical Decision Making [facility] Narrative: Patient with cirrhosis with elevated ammonia level confusion with EMMANUEL will admit for metabolic encephalopathy Differential Diagnosis Differential Diagnoses: The differential diagnosis associated with the presentation includes Admission/Observation Consideration of admission/observation: Escalation of care including admission/observation considered Consult Healthcare Provider Management of the patient was discussed with: Hospitalist Lab Data [facility] Lab Attestation statement: I reviewed the patient's lab results. 08/16/24 21:54 08/16/24 21:54 Labs: Lab Results 08/16/24 08/16/24 08/17/24 Range/Units 21:54 22:47 00:44 WBC 4.5 L (4.8-10.8) X10*3/uL RBC 3.27 L (4.60-5.80) X10*6/uL Hgb 9.0 L (14.0-18.0) g/dl Hct 28.7 L (42.0-52.0) % MCV 87.8 (80.0-98.0) fL MCH 27.5 (27.0-33.0) pg MCHC 31.4 (31.0-36.0) g/dl RDW 17.7 H (11.0-16.0) % Plt Count 113 L (160-400) X10*3/uL MPV 11.2 (9.4-12.4) fL Immature Gran % (Auto) 0.2 (0.0-0.4) % Neut % (Auto) 77.6 H (45-73) % Lymph % (Auto) 9.3 L (20-40) % [place] % (Auto) 10.4 (2-11) % Eos % (Auto) 1.6 (0-4) % Baso % (Auto) 0.9 (0-2) % Lymph # (Auto) 0.4 L (1.2-4.9) X10*3/uL [place] # (Auto) 0.5 (0.1-1.2) X10*3/uL Eos # (Auto) 0.1 (0.0-0.4) X10*3/uL Baso # (Auto) 0.0 (0.0-0.2) X10*3/uL Abs Immat Gran (auto) 0.01 (0.00-0.03) X10*3/uL Absolute Neuts (auto) 3.5 (2.0-8.3) x10*3/uL Absolute Nucleated RBC 0.000 (0.0-0.012) X10*3/uL Nucleated RBC % (auto) 0.0 (0.0-0.2) /100WBC PT 15.4 H (10.9-12.4) SEC INR 1.3 H (0.9-1.1) Sodium 144 (135-145) mmol/L Potassium 4.2 (3.3-5.1) mmol/L Chloride 109 H (96-108) mmol/L Carbon Dioxide 25 (22-29) mmol/L Anion Gap 14 (12-20) BUN 64 H (9-16) mg/dL Creatinine 2.19 H (0.5-1.4) mg/dL Estim Creat Clear Calc 29.2 Estimated GFR 29 Random Glucose 158 H (60-115) mg/dL Calcium 8.1 L (8.4-10.2) mg/dL Magnesium 2.4 (1.6-2.6) mg/dL Total Bilirubin 1.2 H (0.0-1.0) mg/dL AST 37 (5-37) U/L ALT 26 (0-40) U/L Alkaline Phosphatase 184 H (39-117) U/L Ammonia 72 H (13-55) umol/L Total Protein 7.1 (6.5-8.0) g/dL Albumin 3.2 L (3.5-5.0) g/dL Urine Color Yellow Urine Appearance Clear Urine pH 7.0 (5.0-9.0) Ur Specific [place] 1.015 (1.005-1.025) Urine Protein Negative (Neg-Trace) mg/dL Urine Glucose (UA) >=1000 H (Negative) mg/dL Urine Ketones Negative (Negative) mg/dL Urine Blood Negative (Negative) Urine Nitrite Negative (Negative) Ur Leukocyte Esterase Negative (Negative) Urine RBC 0-2 (0-2) /HPF Urine WBC 0-5 (0-5) /HPF Ur Squamous Epith Cells 0-2 (0-2) /HPF Urine Bacteria None Seen (None Seen) Hyaline Casts 0-2 (0-2) /LPF Discharge Plan Discharge Clinical Impression: Acute metabolic encephalopathy, Acute kidney injury superimposed on chronic kidney disease Patient Disposition: Admitted As Inpatient
[2024-08-16 21:58] LABS: MANUAL DIFF FLAG NO
[2024-08-16 22:01] LABS: Basophils Percent Auto 0.9 % (0-2); Eosinophils Absolute Auto 0.1 X10*3/uL (0.0-0.4); Eosinophils Percent Auto 1.6 % (0-4); Hematocrit 28.7 % (42.0-52.0); Imm Gran Abs Auto 0.01 X10*3/uL (0.00-0.03); Imm Gran Pct Auto 0.2 % (0.0-0.4); Lymphocytes Absolute Auto 0.4 X10*3/uL (1.2-4.9); Lymphocytes Percent Auto 9.3 % (20-40); Mean Corpuscular HGB Conc 31.4 g/dl (31.0-36.0); Mean Corpuscular Hemoglobin 27.5 pg (27.0-33.0); Mean Corpuscular Volume 87.8 fL (80.0-98.0); Mean Platelet Volume 11.2 fL (9.4-12.4); Monocytes Absolute Auto 0.5 X10*3/uL (0.1-1.2); Monocytes Percent Auto 10.4 % (2-11); Neutrophils Absolute Auto 3.5 x10*3/uL (2.0-8.3); Neutrophils Percent Auto 77.6 % (45-73); Platelet Count 113 X10*3/uL (160-400); Red Blood Count 3.27 X10*6/uL (4.60-5.80); Red Cell Distribution Width 17.7 % (11.0-16.0); White Blood Count 4.5 X10*3/uL (4.8-10.8)
[2024-08-16 22:07] LABS: INTERNATIONAL NORM RATIO 1.3 (0.9-1.1); Prothrombin Time 15.4 SEC (10.9-12.4)
[2024-08-16 22:16] LABS: Alanine Aminotransferase 26 U/L (0-40); Albumin Level 3.2 g/dL (3.5-5.0); Alkaline Phosphatase 184 U/L (39-117); Anion Gap 14 (12-20); Aspartate Amino Transferase 37 U/L (5-37); Bilirubin Total 1.2 mg/dL (0.0-1.0); Blood Urea Nitrogen 64 mg/dL (9-16); Calcium 8.1 mg/dL (8.4-10.2); Carbon Dioxide 25 mmol/L (22-29); Chloride 109 mmol/L (96-108); Creatinine Clr Calc Pharmacy 29.2; Estimated Glomerular Filt Rate 29; Glucose Random 158 mg/dL (60-115); Magnesium 2.4 mg/dL (1.6-2.6); Potassium 4.2 mmol/L (3.3-5.1); Sodium 144 mmol/L (135-145); Total Protein 7.1 g/dL (6.5-8.0)
[2024-08-16 22:31] VITALS: BP 114/60; PULSE 80; RESP 16; TEMP 36.3; O2SAT 97
[2024-08-16 22:57] LABS: Ammonia 72 umol/L (13-55)
[2024-08-17] VITALS (7 sets, daily range): BP systolic 113–144; BP diastolic 44–99; PULSE 60–80; RESP 14–18; TEMP 36.4–37; O2SAT 95–98
--- NOTE | 2024-08-17 00:18 | MHC.EDTECH ---
This tech took over care of patient at 2300,rounded and introduced self to pt,patient is resting quietly,attempted to get urine,pt stated I don't have to go will re-attempt
--- NOTE | 2024-08-17 00:46 | MHC.EDTECH ---
Patient's stretcher was brought to the door way to the bathroom,pt ambulated with a slow steady gait,W/1 assist,PT urinated 200MLS in urinal,(yellow in color),sample obtained and sent to lab.
[2024-08-17 00:58] LABS: Appearance Urine Clear; Color Urine Yellow; Glucose Urine UA >=1000 mg/dL (Negative); Leukocyte Esterase Urine Negative (Negative); Nitrite Urine Negative (Negative); Specific Gravity - Urine 1.015 (1.005-1.025); UMIC TRIGGER UACC YES; Urine Blood Negative (Negative); Urine Ketones Negative (Negative); Urine Protein Negative (Neg-Trace)
[2024-08-17 01:03] LABS: Bacteria Urine None Seen (None Seen); Hyaline Casts Urine 0-2 /LPF (0-2); RBC Urine 0-2 /HPF (0-2); Squamous Epithelial Cell Urine 0-2 /HPF (0-2); WBC Urine 0-5 /HPF (0-5)
[2024-08-17] MEDS: 0.9 % Sodium Chloride 1,000 ML 999 ML IV (01:54)
[2024-08-17] MEDS: Lactulose 20 GM/30 ML SOLUTION 30 GM PO ×3 (02:22→06:00)
--- NOTE | 2024-08-17 02:22 | PC.NURSE ---
Took over care from MATI Schofield, pt transferred to room 17, pt medicated per nov.
--- NOTE | 2024-08-17 03:28 | P.HPHOSP_ITS ---
History of Present Illness Date of Service: 08/17/24 Attending physician on admission: Austin Warner Chief Complaint: AMS Pt is an 79-year-old male with a past medical history significant for hepatic cirrhosis complicated by esophageal varices and ascites, insulin-dependent type 2 diabetes, diabetic 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, hypertension, hyperlipidemia, a history of prostate cancer, obstructive sleep apnea (ANUJA) on CPAP, chronic iron deficiency anemia requiring frequent transfusions , a history of coronary artery disease (CAD) no longer on antiplatelets, chronic thrombocytopenia due to liver disease, and status post transcatheter aortic valve replacement (TAVR), who presented to the ED via EMS due to confusion. He reports that he has been having insomnia for the past 3 days due to lower extremity pain secondary to pitting edema. He was started on Bumex which has helped and the pain is longer present. He denies any recent falls. He admits that he has not been taking his lactulose for hepatic encephalopathy like the side effect diarrhea with it. Review of Systems 2 Constitutional: Constitutional: Denies body ache(s), Denies chills, Denies fatigue, Denies fever(s) and Denies headache(s) Eyes: Eyes: Denies change in vision ENT: Denies headache(s), Denies nasal congestion, Denies nasal discharge and Denies sore throat Cardiovascular: Cardiovascular: Denies chest pain, Denies rapid heart rate, Denies leg edema and Denies dyspnea Respiratory: Respiratory: Denies chest congestion, Denies cough, Denies dyspnea and Denies wheezing Gastrointestinal: Gastrointestinal: Denies diarrhea, Denies nausea and Denies vomiting Genitourinary: Genitourinary: Denies dysuria and Denies urinary urgency Musculoskeletal: Musculoskeletal: Denies numbness and Denies tingling Integumentary/Breasts: Skin/Breast: Denies rash Neurologic: Reports confusion, Denies headache(s), Denies numbness and Denies tingling Psychiatric: Psychiatric: Reports confusion Endocrine: Endocrine: Denies fatigue Hematologic/Lymphatic: Hematologic/Lymphatic: Denies easy bleeding and Denies easy bruising Allergic/Immunologic: Allergic/Immunologic: Denies wheezing PMF Medical History Cognitive impairment DMII (diabetes mellitus, type 2) Hyperglycemia Symptomatic anemia Difficulty walking Anemia 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 Streptococcal bacteremia Fracture of left humerus History of prostate cancer Acute lower gastrointestinal bleeding COVID-19 vaccine series completed Hypertension Dyslipidemia Diabetic nephropathy associated with type 2 diabetes mellitus Diabetic 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 associated with type 2 diabetes mellitus 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 Diabetes type 2, uncontrolled Varices of esophagus determined by endoscopy Esophageal varices without bleeding KOEHLER (dyspnea on exertion) Chronic fatigue Iron deficiency anemia CAD (coronary artery disease) ANUJA on CPAP Prostate cancer Spinal stenosis On beta kayy at home IBS (irritable colon syndrome) Aortic stenosis HTN (hypertension) Polyneuropathy GERD (gastroesophageal reflux disease) Family History Father CVD (cardiovascular disease) Past heart attack Mother CVD (cardiovascular disease) Brain cancer Heart problem Daughter Breast cancer Sister Breast cancer Son Alive and well Family/Other Myocardial infarction Liver cancer Surgical History S/P infectious endocarditis H/O cataract extraction Hx of endoscopy History of colonoscopy Hx of esophagogastroduodenoscopy Hx of colonoscopy History of surgery History of transurethral resection of prostate History of surgery History of heart artery stent Social History Household Members: Spouse Household Members Other:: Myesha Housing: House Are you a primary skin care therapist to a significant other at home: No Do you presently have visiting nurse or other home services: Yes Alcohol intake: never Patient Tobacco Use Status: Never used Tobacco Smoked in Last 30 Days: No e-Cigarette/Vaping Use: Never Used Second Hand Smoke Exposure: No Use of substances other than those prescribed or required for medical reasons: No Advance Directives: Yes Advance Directives on File: Yes Advance Directives Date on File: 08/31/23 Do you have a plan to hurt others: No Plan service: Yes Current occupational status: retired Cognitive needs: No Hearing needs: No Vision needs: Yes Meds Allergies Allergy/AdvReac Type Severity Reaction Status Date / Time KARL Inhibitors Allergy Severe Angioedema Verified 08/16/24 20:38 dextran 40 [DEXTRAN 40] Allergy Intermediate tachycardia Verified 08/16/24 20:38 latex [LATEX] Allergy Mild BLISTERS Verified 08/16/24 20:38 lisinopril [From Zestril] Allergy Mild Unknown Verified 08/16/24 20:38 Iodinated Contrast Media Allergy Unknown UNKNOWN Verified 08/16/24 20:38 [CONTRAST,IV] Active Medications: Current Medications Lactulose (Lactulose 20 Gm/30 Ml Solution) 30 gm PO ONCE ONE Stop: 08/17/24 06:01 Home Medications ?Medication ?Instructions ?Recorded ?Confirmed ?Last Taken ?Type lactulose 10 gram/15 mL oral 30 ml PO BID 04/14/24 07/27/24 Unknown History solution Physical Exam 2 Vital Signs and Narrative: Vital Signs: Last Vital Signs Temp 98.5 F 08/17/24 00:00 Pulse 80 08/17/24 00:00 Resp 16 08/17/24 00:00 BP 119/44 L 08/17/24 00:00 Pulse Ox 95 08/17/24 00:00 O2 Del Method Room Air 08/17/24 00:00 BMI result Body Mass Index 29.0 General: AOx3, no acute distress, episodes of confusion throughout interview Resp: CTA bilaterally CVS: S1, S2, RRR GI: +BS, NT, no distention Skin: Warm, dry Neuro: Cranial nerves II-XII grossly intact bilaterally. Motor grossly intact bilaterally Extremities: 1+ pitting edema Psych: Confused, cooperative Const: General: confusion Orientation/consciousness: confusion Neuro: General: confusion Results Labs 08/16/24 21:54 08/16/24 21:54 Labs: Laboratory Results - last 24 hr 08/16/24 08/16/24 08/17/24 21:54 22:47 00:44 MCV 87.8 MCH 27.5 MCHC 31.4 RDW 17.7 H Plt Count 113 L MPV 11.2 Immature Gran % (Auto) 0.2 Neut % (Auto) 77.6 H Lymph % (Auto) 9.3 L [place] % (Auto) 10.4 Eos % (Auto) 1.6 Baso % (Auto) 0.9 Lymph # (Auto) 0.4 L [place] # (Auto) 0.5 Eos # (Auto) 0.1 Baso # (Auto) 0.0 Abs Immat Gran (auto) 0.01 Absolute Neuts (auto) 3.5 Absolute Nucleated RBC 0.000 Nucleated RBC % (auto) 0.0 PT 15.4 H INR 1.3 H Anion Gap 14 Estim Creat Clear Calc 29.2 Estimated GFR 29 Random Glucose 158 H Calcium 8.1 L Magnesium 2.4 Total Bilirubin 1.2 H AST 37 ALT 26 Alkaline Phosphatase 184 H Ammonia 72 H Total Protein 7.1 Albumin 3.2 L Urine Color Yellow Urine Appearance Clear Urine pH 7.0 Ur Specific [place] 1.015 Urine Protein Negative Urine Glucose (UA) >=1000 H Urine Ketones Negative Urine Blood Negative Urine Nitrite Negative Ur Leukocyte Esterase Negative Urine RBC 0-2 Urine WBC 0-5 Ur Squamous Epith Cells 0-2 Urine Bacteria None Seen Hyaline Casts 0-2 Assessment and Plan (1) Hepatic encephalopathy: Status: Acute (2) Cirrhosis of liver without ascites: Status: Acute (3) Heart failure: Qualifiers: Heart failure chronicity: chronic Heart failure type: diastolic Q ualified Code(s): I50.32 - Chronic diastolic (congestive) heart failure Status: Acute (4) CKD stage 4 due to type 2 diabetes mellitus: Status: Acute Plan Pt is an 79-year-old male with a past medical history significant for hepatic cirrhosis complicated by esophageal varices and ascites, insulin-dependent type 2 diabetes, diabetic 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, hypertension, hyperlipidemia, history of prostate cancer, obstructive sleep apnea (ANUJA) on CPAP, chronic iron deficiency anemia requiring frequent transfusions , a history of coronary artery disease (CAD) no longer on antiplatelets, chronic thrombocytopenia due to liver disease, and status post transcatheter aortic valve replacement (TAVR), who presented to the ED via EMS due to confusion. AMS secondary to hepatic encephalopathy due to noncompliance with lactulose - ammonia level 72 - UA negative, no obvious signs of infection, CBC without leukocytosis - no recent fall or trauma noted by pt and no signs on exam - given lactulose 30mg in ED, no response, add 2 additional doses - discussed the importance of compliance with med and suggested he speak with GI doctor about switching to rifiaxamin - admit to med surg due to AMS - monitor CBC and BMP elevation in creatinine, not EMMANUEL - avoid IV fluids due to CHF - monitor Is and Os - hold bumex - monitor BMP hepatic cirrhosis complicated by esophageal varices and ascites - no abd pain or obvious ascites on exam - LFTs normal IDDM - diabetic diet - sliding scale insulin HTN - BP ok - hold meds until med rec back as pt cannot give accurate hx HLD - wait on med rec history of prostate ca - followed by oncology ANUJA - CPAP at night chronic GERARD - H+H stable - monitor CBC full code VTE prophy: pneumoboots due to thrombocytopenia and frequent blood transfusions Pt with AMS secondary to hepatic encephalopathy requiring admission for at least 2 midnights stay for treatment and monitoring. Quality Stroke Does the patient have a stroke diagnosis?: No VTE Prior VTE?: No VTE Risk Level:: Medical - moderate - high VTE Device Contraindication: N/A - Device Ordered VTE Drug Contraindication: Treatment Not Indicated
--- NOTE | 2024-08-17 04:27 | PC.NURSE ---
Medicated per mar.
--- NOTE | 2024-08-17 06:03 | PC.NURSE ---
medicated per mar.
[2024-08-17 08:26] LABS: Glucose, Whole Blood 134 mg/dL (60-115)
--- NOTE | 2024-08-17 08:39 | PM.EVENT ---
Event Note Date of Service: 08/17/24 Event Note: Pt admitted just an hour ago. labs, meds reviewed, he is admitted for hepatic encephalopathy. He's improving, med rec is pending, add sliding scale insulin Time Spent With Patient Time: Total time managing care of this patient today ____ minutes.
[2024-08-17] MEDS: 0.9 % Sodium Chloride Flush 3 ML SYRINGE IVFLUSH ×2 (09:00→21:27)
--- NOTE | 2024-08-17 09:10 | PHA.MEDREC ---
Addendum entered by Pamela Ventura RPh 08/17/24 09:43: Med rec reviewed by [facility]. Original Note: Pharmacy Consult ? Medication Reconciliation Pharmacy has completed the medication reconciliation. Spoke with patient and he was able to confirm his medications except his Bumetadine, and Midrodine. The patient confirmed his Insulin Tresiba, confirming he is injecting 6 units at bedtime and the Admelog injection confirming he is injecting it three times a day per a sliding scale. He also confirmed his Trulicity once a week on Mondays and states he last took it on Thursday. He states he just started the Disclofenac Gel confirming he is doing 2 grams four times a day, he also confirmed he just started the Lactulose yesterday and confirmed he is taking 30ml twice a day. Look in the last month in claims it looks like he got switched from the Bumetadine 1mg tab to the Bumetadine 2mg tabs but the patient seemed to switch it around and kept saying he got switched from 2mg to 1mg. I called and spoke with his Myesha and she confirmed he is now taking Bumetadine 2mg tabs and no longer the 1mg tabs. He was not sure if he was taking the Midodrine 10mg tab and was not familiar with the name of it. His Myesha was able to confirm her is still taking the Midodrine 10mg tabs taking 1 tablet three times a day. The patient confirmed he last took his medications Thursday.
--- NOTE | 2024-08-17 12:00 | MHC.CM.PN ---
PT LIVES WITH SON EXPLINS THAT PT IS ACTIVE W/[facility] AND [facility] AND THAT PT ECEIVES BLOOD TRANSFUSIONS THRU [facility] WAS NOT SURE OF THE FREQUENCY ..PA DEWEY FELTON ASSIST W/TRANSPORT HOME
--- NOTE | 2024-08-17 13:00 | PC.NURSE ---
patient tx to overflow unit, transferred into hospital bed 5. patient is awake and alert, requested for this RN to call his for his teeth, patient awaiting lunch tray. commode set up at bedside for patient use
[2024-08-17 13:29] LABS: Glucose, Whole Blood 168 mg/dL (60-115)
[2024-08-17] MEDS: carvediloL 6.25 MG TABLET PO ×2 (13:47→21:22)
--- NOTE | 2024-08-17 15:01 | PC.NURSE ---
called kitchen for patient lunch tray, as patient still has not recieved food. patient given ice cream snack, delay in insulin due to patient not having tray
--- NOTE | 2024-08-17 15:47 | MHC.EDTECH ---
Called the Kitchen @ [phone] for a lunch tray for the patient, stated they were working on it.
--- NOTE | 2024-08-17 16:29 | MHC.EDTECH ---
Called the kitchen at [phone], because patient has not received lunch tray previously called on. [employer] stated patient would be receiving lunch and dinner tray at same time shortly.
--- NOTE | 2024-08-17 16:29 | PC.NURSE ---
patient noted to be incontinent of urine, patient linens, gown and pads changed. patient noted to have deep tissue pressure injury on coccyx, tissue blanchable but red., covered with pink wound dressing. patient family at bedside, concerned patient has not gotten food today, multiple attempts to call kitchen for patient trays with no results, house made aware. patient given gingerale and ice cream earlier as snack.
[2024-08-17 17:13] LABS: Glucose, Whole Blood 228 mg/dL (60-115)
[2024-08-17] MEDS: Insulin Lispro 100 UNIT/ML 3 ML VIAL SUBCUT ×2 (17:27→21:22)
[2024-08-17] MEDS: Midodrine HCl 10 MG TABLET PO ×2 (17:43→21:23)
[2024-08-17 21:00] LABS: Glucose, Whole Blood 171 mg/dL (60-115)
[2024-08-17] MEDS: Atorvastatin Calcium 40 MG TABLET PO (21:22)
[2024-08-17] MEDS: Cyanocobalamin (Vitamin B-12) 1,000 MCG TABLET 1000 MCG PO (21:22)
[2024-08-17] MEDS: Lactulose 20 GM/30 ML SOLUTION PO (21:22)
[2024-08-17] MEDS: Gabapentin 300 MG CAPSULE PO (21:23)
--- NOTE | 2024-08-17 22:54 | PC.NURSE ---
Respiratory Therapist (Regulo Martínez) at bedside to apply CPAP for sleep. Pt is alert & oriented, calm/cooperative. Pt medicated per scheduled orders. Requested and given sandwich, pudding, and cranberry juice. Took all medications without issue. Pt is able to make needs known. Call allen within reach. No acute distress. Care ongoing by this RN.
[2024-08-18] VITALS (9 sets, daily range): BP systolic 122–149; BP diastolic 58–74; PULSE 60–63; RESP 17–18; TEMP 36.5–37.3; O2SAT 96–98; BMI 26.6; BMI 27.8
--- NOTE | 2024-08-18 00:13 | PC.NURSE ---
CPAP removed at this time for patient to drink ice water. Complaining of dryness. Pt maintaining oxygen saturation on room air at 96%. Pt is awake, alert, & oriented. Repositioned in bed. Water at bedside per request. Call allen within reach. Care ongoing by this RN.
--- NOTE | 2024-08-18 00:45 | PC.NURSE ---
CPAP mask reapplied. Pt returned to sleep within a few minutes. No acute distress noted. Care ongoing by this RN.
--- NOTE | 2024-08-18 03:41 | MHC.EDTECH ---
This tech took over care of patient at 0300AM,rounded and introduced self to pt,vitals taken,pt appears comfortable,pt is clean and dry,call allen in reach
[2024-08-18 05:00] LABS: MANUAL DIFF FLAG NO
[2024-08-18 05:02] LABS: Basophils Percent Auto 1.3 % (0-2); Eosinophils Absolute Auto 0.1 X10*3/uL (0.0-0.4); Eosinophils Percent Auto 3.6 % (0-4); Hematocrit 23.4 % (42.0-52.0); Hemoglobin 7.1 g/dl (14.0-18.0); Imm Gran Abs Auto 0.01 X10*3/uL (0.00-0.03); Imm Gran Pct Auto 0.3 % (0.0-0.4); Lymphocytes Absolute Auto 0.5 X10*3/uL (1.2-4.9); Lymphocytes Percent Auto 15.2 % (20-40); Mean Corpuscular HGB Conc 30.3 g/dl (31.0-36.0); Mean Corpuscular Hemoglobin 27.6 pg (27.0-33.0); Mean Corpuscular Volume 91.1 fL (80.0-98.0); Mean Platelet Volume 10.8 fL (9.4-12.4); Monocytes Absolute Auto 0.5 X10*3/uL (0.1-1.2); Monocytes Percent Auto 15.2 % (2-11); Neutrophils Percent Auto 64.4 % (45-73); Red Blood Count 2.57 X10*6/uL (4.60-5.80); Red Cell Distribution Width 17.9 % (11.0-16.0); White Blood Count 3.1 X10*3/uL (4.8-10.8)
[2024-08-18 05:06] LABS: Platelet Count 78 X10*3/uL (160-400)
--- NOTE | 2024-08-18 05:06 | PC.NURSE ---
Patient continues to sleep. Woke up briefly for lab draw which was sent for analysis. Results pending. CPAP remains in place. Pt denies any additional needs at this time. Lights dimmed for comfort. Care ongoing by this RN.
[2024-08-18 05:16] LABS: Alanine Aminotransferase 22 U/L (0-40); Albumin Level 2.5 g/dL (3.5-5.0); Alkaline Phosphatase 178 U/L (39-117); Anion Gap 13 (12-20); Aspartate Amino Transferase 38 U/L (5-37); Bilirubin Total 0.7 mg/dL (0.0-1.0); Blood Urea Nitrogen 48 mg/dL (9-16); Carbon Dioxide 21 mmol/L (22-29); Chloride 115 mmol/L (96-108); Creatinine Clr Calc Pharmacy 42.3; Estimated Glomerular Filt Rate 45; Glucose Random 256 mg/dL (60-115); Sodium 145 mmol/L (135-145); Total Protein 5.5 g/dL (6.5-8.0)
--- NOTE | 2024-08-18 06:26 | MHC.EDTECH ---
Rounds completed,patient was incont of a large amount of urine,benjamin-care given and bed linen changed ,patient is resting quietly,call allen in reach
[2024-08-18] MEDS: Omeprazole 20 MG CAPSULE.DR PO (06:34)
--- NOTE | 2024-08-18 06:39 | PC.NURSE ---
Patient voided additional 375 ML yellow urine into urinal within 5 minutes of incontinent urine (see previous note). Pt requested and given ice water to drink as well. Male urine incontinence wrap applied to penis. Wyatt wound dressings remain in place that were placed on 08/17/2024 by previous RN (Sravani Correa), signed, dated, no drainage noted upon examination. Cleansed with pericare/body wipes.
[2024-08-18 07:24] LABS: Glucose, Whole Blood 153 mg/dL (60-115)
[2024-08-18] MEDS: Insulin Lispro 100 UNIT/ML 3 ML VIAL SUBCUT ×4 (08:35→21:48)
[2024-08-18] MEDS: Finasteride 5 MG TABLET PO (08:35)
[2024-08-18] MEDS: Lactulose 20 GM/30 ML SOLUTION PO ×2 (08:35→21:48)
[2024-08-18] MEDS: Gabapentin 300 MG CAPSULE PO ×2 (08:36→21:47)
[2024-08-18] MEDS: carvediloL 6.25 MG TABLET PO ×2 (08:36→21:48)
[2024-08-18] MEDS: Ferrous Sulfate 324 MG TABLET.DR PO (08:36)
[2024-08-18] MEDS: 0.9 % Sodium Chloride Flush 3 ML SYRINGE IVFLUSH ×3 (08:36→21:52)
[2024-08-18] MEDS: Midodrine HCl 10 MG TABLET PO ×3 (08:36→21:47)
[2024-08-18] MEDS: Tamsulosin HCL 0.4 MG CAPSULE PO (08:36)
[2024-08-18] MEDS: Empagliflozin 10 MG TABLET PO (08:36)
[2024-08-18] MEDS: Ezetimibe 10 MG TABLET PO (08:36)
--- NOTE | 2024-08-18 09:14 | HO.PM.IMPN ---
Subjective Subjective Date of Service: 08/18/24 Interval History: f/u on hepatic encephalopathy he is completly lucid this morning renal function is better Physical Exam Vital Signs: Vital Signs: Last Vital Signs Temp 99.2 F 08/18/24 03:38 Pulse 60 08/18/24 08:36 Resp 18 08/18/24 03:38 BP 124/59 L 08/18/24 08:36 Pulse Ox 97 08/18/24 03:38 O2 Del Method CPAP 08/18/24 03:38 BMI result Body Mass Index 26.6 Const: Other: General: AO X 3, no acute distress Resp: CTA bilateral CVS: S1,S2,RRR, 1+ pedal edema GI: +BS, NT, no distention Skin: No rash Neuro: motor grossly intact Psych: appropriate affect Objective Data Active Medications Acetaminophen (Acetaminophen 325 Mg Tablet) 650 mg PO Q6H PRN PRN Reason: Pain, Mild (Pain Scale 1-3), fever or headache Alprazolam (Alprazolam 0.5 Mg Tablet) 0.5 mg PO BID PRN PRN Reason: Anxiety Atorvastatin Calcium (Atorvastatin Calcium 40 Mg Tablet) 40 mg PO BEDTIME [facility] Last Admin: 08/17/24 21:22 Dose: 40 mg Documented By: PREMA Calcium Carbonate (Calcium Carbonate 750 Mg Tab.Chew) 750 mg PO Q4H PRN PRN Reason: Heartburn Carvedilol (Carvedilol 6.25 Mg Tablet) 6.25 mg PO BID [facility]; Protocol Last Admin: 08/18/24 08:36 Dose: 6.25 mg Documented By: AVELINO Cyanocobalamin (Cyanocobalamin (Vitamin B-12) 1,000 Mcg Tablet) 1,000 mcg PO BEDTIME [facility] Last Admin: 08/17/24 21:22 Dose: 1,000 mcg Documented By: PREMA Ezetimibe (Ezetimibe 10 Mg Tablet) 10 mg PO DAILY [facility] Last Admin: 08/18/24 08:36 Dose: 10 mg Documented By: AVELINO Empagliflozin (Empagliflozin 10 Mg Tablet) 10 mg PO DAILY [facility] Last Admin: 08/18/24 08:36 Dose: 10 mg Documented By: AVELINO Ferrous Sulfate (Ferrous Sulfate 324 Mg Tablet.) 324 mg PO DAILY [facility] Last Admin: 08/18/24 08:36 Dose: 324 mg Documented By: AVELINO Finasteride (Finasteride 5 Mg Tablet) 5 mg PO DAILY [facility] Last Admin: 08/18/24 08:35 Dose: 5 mg Documented By: AVELINO Gabapentin (Gabapentin 300 Mg Capsule) 300 mg PO BID [facility] Last Admin: 08/18/24 08:36 Dose: 300 mg Documented By: AVELINO Glucose (Glucose Gel 15 Gm Gel..Gram.) 15 gm PO Q15M PRN; Protocol PRN Reason: per Hypoglycemia Standing Ord. Dextrose (D10) 250 mls @ 750 mls/hr IV Q15M PRN; Protocol PRN Reason: per Hypoglycemia Standing Ord. Insulin Human Lispro (Insulin Lispro 100 Unit/Ml 3 Ml Vial) 0 unit SUBCUT QIDACHS [facility]; Protocol Last Admin: 08/18/24 08:35 Dose: 2 unit Documented By: AVELINO Lactulose (Lactulose 20 Gm/30 Ml Solution) 20 gm PO BID [facility] Last Admin: 08/18/24 08:35 Dose: 20 gm Documented By: AVELINO Magnesium Hydroxide (Milk Of Magnesia 30 Ml Oral.Susp) 30 ml PO DAILY PRN PRN Reason: Constipation Melatonin (Melatonin 3 Mg Tablet) 6 mg PO BEDTIME PRN PRN Reason: Insomnia Midodrine (Midodrine Hcl 10 Mg Tablet) 10 mg PO TID [facility] Last Admin: 08/18/24 08:36 Dose: 10 mg Documented By: AVELINO Non-Formulary Medication (Dulaglutide [Trulicity]) 0.75 mg SUBCUT MO [facility] Omeprazole (Omeprazole 20 Mg Capsule.Dr) 20 mg PO DAILY@0630 [facility] Last Admin: 08/18/24 06:34 Dose: 20 mg Documented By: PREMA Ondansetron HCl (Ondansetron Hcl 4 Mg/2 Ml Vial) 4 mg IVPUSH Q8H PRN PRN Reason: Nausea and Vomiting Sodium Chloride (0.9 % Sodium Chloride Flush 3 Ml Syringe) 3 ml IVFLUSH QSHIFT [facility] Last Admin: 08/18/24 08:36 Dose: 3 ml Documented By: AVELINO Tamsulosin HCl (Tamsulosin Hcl 0.4 Mg Capsule) 0.4 mg PO DAILY [facility] Last Admin: 08/18/24 08:36 Dose: 0.4 mg Documented By: AVELINO Labs 08/18/24 04:55 08/18/24 04:55 Labs: Laboratory Results - last 24 hr 08/17/24 08/17/24 08/17/24 13:23 17:00 20:55 MCV MCH MCHC RDW Plt Count MPV Immature Gran % (Auto) Neut % (Auto) Lymph % (Auto) [place] % (Auto) Eos % (Auto) Baso % (Auto) Lymph # (Auto) [place] # (Auto) Eos # (Auto) Baso # (Auto) Abs Immat Gran (auto) Absolute Neuts (auto) Absolute Nucleated RBC Nucleated RBC % (auto) Anion Gap Estim Creat Clear Calc Estimated GFR POC Glucose 168 H 228 H 171 H Random Glucose Calcium Total Bilirubin AST ALT Alkaline Phosphatase Total Protein Albumin 08/18/24 08/18/24 04:55 07:11 MCV 91.1 MCH 27.6 MCHC 30.3 L RDW 17.9 H Plt Count 78 L D MPV 10.8 Immature Gran % (Auto) 0.3 Neut % (Auto) 64.4 Lymph % (Auto) 15.2 L [place] % (Auto) 15.2 H Eos % (Auto) 3.6 Baso % (Auto) 1.3 Lymph # (Auto) 0.5 L [place] # (Auto) 0.5 Eos # (Auto) 0.1 Baso # (Auto) 0.0 Abs Immat Gran (auto) 0.01 Absolute Neuts (auto) 2.0 Absolute Nucleated RBC 0.000 Nucleated RBC % (auto) 0.0 Anion Gap 13 Estim Creat Clear Calc 42.3 Estimated GFR 45 POC Glucose 153 H Random Glucose 256 H Calcium 8.0 L Total Bilirubin 0.7 AST 38 H ALT 22 Alkaline Phosphatase 178 H Total Protein 5.5 L Albumin 2.5 L Assessment and Plan (1) Hepatic encephalopathy: Status: Acute (2) Decompensated hepatic cirrhosis: Status: Acute (3) CKD stage 4 due to type 2 diabetes mellitus: Status: Acute (4) Acute kidney injury superimposed on chronic kidney disease: Status: Acute Plan 79-year-old male with a past medical history significant for hepatic cirrhosis complicated by esophageal varices and ascites, insulin-dependent type 2 diabetes, diabetic 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, hypertension, hyperlipidemia, history of prostate cancer, obstructive sleep apnea (ANUJA) on CPAP, chronic iron deficiency anemia requiring frequent transfusions , a history of coronary artery disease (CAD) no longer on antiplatelets, chronic thrombocytopenia due to liver disease, and status post transcatheter aortic valve replacement (TAVR), who presented to the ED via EMS due to confusion. AMS secondary to hepatic encephalopathy due to noncompliance with lactulose -resolved, mental status back to baseline -to continue home dose of lactulose 20 bid -add rifaximin at discharge EMMANUEL on CKD, resolved. - hepatic cirrhosis complicated by esophageal varices and ascites - no abd pain or obvious ascites on exam - LFTs normal -resume home diuretics IDDM - diabetic diet - sliding scale insulin, lantus at bedtime HTN -continue coreg HLD - history of prostate ca - followed by oncology ANUJA - CPAP at night chronic GERARD - H+H stable - monitor CBC full code VTE prophy: pneumoboots due to thrombocytopenia and frequent blood transfusions Pt with AMS secondary to hepatic encephalopathy requiring admission for at least 2 midnights stay for treatment and monitoring. Quality Stroke Does the patient have a stroke diagnosis?: No VTE Prior VTE?: No VTE Risk Level:: Medical - moderate - high VTE Device Contraindication: N/A - Device Ordered VTE Drug Contraindication: Treatment Not Indicated
[2024-08-18 11:58] LABS: Glucose, Whole Blood 178 mg/dL (60-115)
[2024-08-18] MEDS: Acetaminophen 325 MG TABLET 650 MG PO (12:03)
[2024-08-18] MEDS: Spironolactone 25 MG TABLET PO (12:03)
--- NOTE | 2024-08-18 12:23 | P.DS_ITS ---
DS: Providers Provider Date of Service: 08/19/24 Date of admission: 08/17/24 03:25 Date of discharge: 08/19/24 Primary care physician: Roberto Carlos Cisneros PA-C DS: Diagnosis Discharge Diagnosis (1) Hepatic encephalopathy: Status: Deleted (2) Decompensated hepatic cirrhosis: Status: Resolved (3) CKD stage 4 due to type 2 diabetes mellitus: Status: Inactive (4) Acute kidney injury superimposed on chronic kidney disease: Status: Resolved DS: Summary Hospital Course Hospital Course: admission hpi Chief Complaint: AMS Pt is an 79-year-old male with a past medical history significant for hepatic cirrhosis complicated by esophageal varices and ascites, insulin-dependent type 2 diabetes, diabetic 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, hypertension, hyperlipidemia, a history of prostate cancer, obstructive sleep apnea (ANUJA) on CPAP, chronic iron deficiency anemia requiring frequent transfusions , a history of coronary artery disease (C AD) no longer on antiplatelets, chronic thrombocytopenia due to liver disease, and status post transcatheter aortic valve replacement (TAVR), who presented to the ED via EMS due to confusion. He reports that he has been having insomnia for the past 3 days due to lower extremity pain secondary to pitting edema. He was started on Bumex which has helped and the pain is longer present. He denies any recent falls. He admits that he has not been taking his lactulose for hepatic encephalopathy like the side effect diarrhea with it. hospital course: The patient presented with altered mental status in setting of elevated ammonia level and Yamilet. He was admitted for mangement of hepatic encephalopathy and given lactulose and made a rather rapid recovery. His mental status is back to normal, It is reported that he is not compliant with medicine including lactulose. He is advised to be compliant with his meds. Additionally, he will be prescribed Riffaximin to help prevent rehospitalization from hepatic encephalopathy Time Attestation Discharge Coordination Time (in mins): 45 Quality: Safe Use of Opioids Does Pt have an Active Cancer Diagnosis on the Problem List?: No Quality: Stroke Does the patient have a stroke diagnosis?: No Physical Exam Vital Signs: Vital Signs: Last Vital Signs Temp 97.9 F 08/18/24 08:00 Pulse 60 08/18/24 08:36 Resp 18 08/18/24 08:00 BP 132/74 08/18/24 12:03 Pulse Ox 96 08/18/24 08:00 O2 Del Method Room Air 08/18/24 08:00 BMI result Body Mass Index 26.6 General: AO X 3, no acute distress Resp: CTA bilateral CVS: S1,S2,RRR GI: +BS, NT, no distention Skin: No rash Neuro: motor grossly intact Psych: appropriate affect DS: Data Data Completed and Pending Completed studies during hospitalization [Text1]: Procedures Destruction of Bladder Neck, Via Natural or Artificial Opening Endoscopic (06/17/22) Excision of Duodenum, Via Natural or Artificial Opening Endoscopic, Diagnostic (01/25/24) Extirpation of Matter from Bladder, Via Natural or Artificial Opening Endoscopic (06/17/22) Occlusion of Esophageal Vein with Extraluminal Device, Via Natural or Artificial Opening Endoscopic (01/25/24) Transfusion of Autologous Red Blood Cells into Peripheral Vein, Percutaneous Approach (04/14/24) Transfusion of Nonautologous Red Blood Cells into Peripheral Vein, Percutaneous Approach (01/25/24) Labs on day of discharge: Laboratory Results - last 24 hr 08/17/24 08/17/24 08/17/24 13:23 17:00 20:55 WBC RBC Hgb Hct MCV MCH MCHC RDW Plt Count MPV Immature Gran % (Auto) Neut % (Auto) Lymph % (Auto) [place] % (Auto) Eos % (Auto) Baso % (Auto) Lymph # (Auto) [place] # (Auto) Eos # (Auto) Baso # (Auto) Abs Immat Gran (auto) Absolute Neuts (auto) Absolute Nucleated RBC Nucleated RBC % (auto) Sodium Potassium Chloride Carbon Dioxide Anion Gap BUN Creatinine Estim Creat Clear Calc Estimated GFR POC Glucose 168 H 228 H 171 H Random Glucose Calcium Total Bilirubin AST ALT Alkaline Phosphatase Total Protein Albumin 08/18/24 08/18/24 08/18/24 04:55 07:11 11:54 WBC 3.1 L RBC 2.57 L D Hgb 7.1 L D Hct 23.4 L MCV 91.1 MCH 27.6 MCHC 30.3 L RDW 17.9 H Plt Count 78 L D MPV 10.8 Immature Gran % (Auto) 0.3 Neut % (Auto) 64.4 Lymph % (Auto) 15.2 L [place] % (Auto) 15.2 H Eos % (Auto) 3.6 Baso % (Auto) 1.3 Lymph # (Auto) 0.5 L [place] # (Auto) 0.5 Eos # (Auto) 0.1 Baso # (Auto) 0.0 Abs Immat Gran (auto) 0.01 Absolute Neuts (auto) 2.0 Absolute Nucleated RBC 0.000 Nucleated RBC % (auto) 0.0 Sodium 145 Potassium 4.0 Chloride 115 H Carbon Dioxide 21 L Anion Gap 13 BUN 48 H Creatinine 1.51 H Estim Creat Clear Calc 42.3 Estimated GFR 45 POC Glucose 153 H 178 H Random Glucose 256 H Calcium 8.0 L Total Bilirubin 0.7 AST 38 H ALT 22 Alkaline Phosphatase 178 H Total Protein 5.5 L Albumin 2.5 L Discharge Plan Discharge Anticipated Discharge Date/Time: 08/18/24 12:18 Patient Disposition: Home Health Service Discharge Diagnosis: Hepatic encephalopathy Referrals: Radha KULKARNI [Outside] - 1 Week Roberto Carlos Cisneros PA-C [Primary Care Provider] - 1 Week Discharge Medications: New rifaximin 550 mg tablet 550 mg PO BID Qty: 180 0RF Continued (DME) FreeStyle Marleni 14 Day [place] Misc See Rx Instructions .Route Qty: 1 0RF Rx Instructions: As directed (DME) FreeStyle [place]leni 14 Day Sensor Kit See Rx Instructions .Route Qty: 2 2RF Rx Instructions: As directed (DME) FreeStyle Test Strip See Rx Instructions .Route Qty: 100 3RF Rx Instructions: three times per day (DME) blood-glucose meter [FreeStyle Lite Meter] Kit See Rx Instructions .Route Qty: 1 0RF Rx Instructions: As directed (DME) pen needle, diabetic [BD Gifty 2nd Gen Pen Needle] 32 gauge x 5/32 needle See Rx Instructions .MEDSUPPLY Qty: 150 5RF Rx Instructions: 4 times a day (DME) pen needle, diabetic [BD Ultra-Fine Gifty Pen Needle] 32 gauge x 5/32 needle See Rx Instructions .ROUTE .MEDSUPPLY Qty: 50 3RF Rx Instructions: As directed (DME) Prodigy No Coding Strip See Rx Instructions .Route Qty: 100 6RF Rx Instructions: Test 3 times a day (DME) blood-glucose meter [Prodigy Pocket Meter] Kit See Rx Instructions .Route Qty: 1 0RF Rx Instructions: Testing three times per day tamsulosin 0.4 mg capsule 0.4 mg PO DAILY 90 Days Qty: 90 1RF insulin lispro [Admelog SoloStar U-100 Insulin] 100 unit/mL insulin pen 1 sliding scale dose subcut TID 30 Days Qty: 15 6RF Rx Instructions: BG <111 0 units, 111-150 - 0 units, 151-200 2 units, 201-250 4 units, 251-300 6 units, 301-350 8 units, >350 10 units midodrine 10 mg tablet 10 mg PO TID 30 Days Qty: 90 3RF Rx Instructions: do not give last dose of day after 6PM or within 4 hrs of bedtime finasteride [Proscar] 5 mg tablet 5 mg PO DAILY 90 Days Qty: 90 1RF gabapentin 300 mg capsule 300 mg PO BID 30 Days Qty: 60 3RF Trulicity 0.75 mg/0.5 mL pen injector 0.75 mg SUBCUT MO Qty: 2 3RF ferrous sulfate 325 mg (65 mg iron) tablet,delayed release (DR/EC) 325 mg PO DAILY Qty: 90 0RF carvedilol 6.25 mg tablet 6.25 mg PO BID 30 Days Qty: 60 3RF Rx Instructions: must administer with a meal/food ezetimibe [Zetia] 10 mg tablet 10 mg PO DAILY Qty: 30 3RF atorvastatin 80 mg tablet 40 mg PO BEDTIME Qty: 90 0RF Farxiga 10 mg tablet 10 mg PO DAILY 30 Days Qty: 30 3RF pantoprazole 40 mg tablet,delayed release (DR/EC) 40 mg PO DAILY Qty: 30 3RF spironolactone 25 mg tablet 25 mg PO DAILY 30 Days Qty: 30 0RF cyanocobalamin (vitamin B-12) 500 mcg tablet 1,000 mcg PO BEDTIME Qty: 90 0RF alprazolam 0.5 mg tablet 0.5 mg PO BID PRN (Reason: Anxiety) 30 Days Qty: 60 1RF diclofenac sodium 1 % gel 2 g topical QID Qty: 100 0RF Rx Instructions: apply to single elbow, wrist or hand; for hand includes palm/fingers/back of hand lactulose 10 gram/15 mL solution 30 ml PO BID insulin degludec [Tresiba FlexTouch U-100] 100 unit/mL (3 mL) insulin pen 6 unit subcut BEDTIME (DME) lancets [FreeStyle Lancets] 28 gauge misc See Rx Instructions .Route Qty: 100 6RF Rx Instructions: As directed three times per day (DME) blood pressure test kit-large Kit See Rx Instructions .Route Qty: 1 0RF Rx Instructions: As directed bumetanide 2 mg tablet 2 mg PO DAILY 30 Days Qty: 30 1RF Discharge Orders: Discharge Order (Routine); Ordered 08/19/24 Ordered By: Néstor Terry Diet: Diabetic diet Activity on Discharge: As tolerated Stand Alone Forms: Patient Portal Discharge page Print Language: Bulgarian Care Plan Goals: recovery from hepatic encephalopathy, and prevention of rehospitalization Health Concerns: Cirrhosis of the liver hepatic encephalopathy renal failure Plan of Treatment: Be sure to take all your medication as directed everytime Assessment: see above Discharge Date/Time: 08/19/24 12:04
[2024-08-18 13:04] LABS: Ammonia 60 umol/L (13-55)
[2024-08-18] MEDS: Lidocaine 4 % Patch ADH..PATCH 1 PATCH TRANSDERMA (13:21)
[2024-08-18] MEDS: Bumetanide 1 MG TABLET 2 MG PO (13:32)
[2024-08-18 16:45] LABS: Glucose, Whole Blood 155 mg/dL (60-115)
[2024-08-18 19:52] LABS: Glucose, Whole Blood 187 mg/dL (60-115)
[2024-08-18] MEDS: Atorvastatin Calcium 40 MG TABLET PO (21:47)
[2024-08-18] MEDS: Cyanocobalamin (Vitamin B-12) 1,000 MCG TABLET 1000 MCG PO (21:47)
[2024-08-18] MEDS: Insulin Glargine,Hum.rec.anlog 100 UNIT/ML 10 ML VIAL SUBCUT (21:48)
[2024-08-19] VITALS: BP 137/63; PULSE 60; RESP 18; TEMP 37.5; O2SAT 96
[2024-08-19] MEDS: Acetaminophen 325 MG TABLET 650 MG PO (02:22)
[2024-08-19 02:59] VITALS: BP 108/80; PULSE 60; RESP 18; TEMP 37.2; O2SAT 95
[2024-08-19 04:32] VITALS: PULSE 21; RESP 18
[2024-08-19 05:45] LABS: MANUAL DIFF FLAG NO
[2024-08-19 05:47] LABS: Basophils Percent Auto 0.9 % (0-2); Eosinophils Absolute Auto 0.2 X10*3/uL (0.0-0.4); Eosinophils Percent Auto 4.7 % (0-4); Hematocrit 25.2 % (42.0-52.0); Hemoglobin 7.9 g/dl (14.0-18.0); Imm Gran Abs Auto 0.01 X10*3/uL (0.00-0.03); Imm Gran Pct Auto 0.3 % (0.0-0.4); Lymphocytes Absolute Auto 0.5 X10*3/uL (1.2-4.9); Lymphocytes Percent Auto 15.7 % (20-40); Mean Corpuscular HGB Conc 31.3 g/dl (31.0-36.0); Mean Corpuscular Volume 89.4 fL (80.0-98.0); Mean Platelet Volume 10.5 fL (9.4-12.4); Monocytes Absolute Auto 0.5 X10*3/uL (0.1-1.2); Monocytes Percent Auto 13.7 % (2-11); Neutrophils Absolute Auto 2.2 x10*3/uL (2.0-8.3); Neutrophils Percent Auto 64.7 % (45-73); Red Blood Count 2.82 X10*6/uL (4.60-5.80); Red Cell Distribution Width 17.8 % (11.0-16.0); White Blood Count 3.4 X10*3/uL (4.8-10.8)
[2024-08-19] MEDS: Omeprazole 20 MG CAPSULE.DR PO (05:47)
[2024-08-19 05:48] LABS: Platelet Count 75 X10*3/uL (160-400)
[2024-08-19 06:03] LABS: Alanine Aminotransferase 30 U/L (0-40); Albumin Level 2.7 g/dL (3.5-5.0); Alkaline Phosphatase 162 U/L (39-117); Anion Gap 13 (12-20); Aspartate Amino Transferase 50 U/L (5-37); Bilirubin Total 0.9 mg/dL (0.0-1.0); Blood Urea Nitrogen 42 mg/dL (9-16); Calcium 8.4 mg/dL (8.4-10.2); Carbon Dioxide 25 mmol/L (22-29); Chloride 108 mmol/L (96-108); Creatinine Clr Calc Pharmacy 40.4; Estimated Glomerular Filt Rate 43; Glucose Random 132 mg/dL (60-115); Potassium 4.5 mmol/L (3.3-5.1); Sodium 141 mmol/L (135-145); Total Protein 5.9 g/dL (6.5-8.0)
[2024-08-19] MEDS: Calcium Carbonate 750 MG TAB.CHEW PO (06:37)
[2024-08-19 07:10] VITALS: BP 107/51; PULSE 60; RESP 16; TEMP 36.4; O2SAT 93
[2024-08-19 07:26] LABS: Glucose, Whole Blood 111 mg/dL (60-115)
[2024-08-19] MEDS: Bumetanide 1 MG TABLET 2 MG PO (08:03)
[2024-08-19] MEDS: Spironolactone 25 MG TABLET PO (08:03)
[2024-08-19] MEDS: Empagliflozin 10 MG TABLET PO (08:03)
[2024-08-19] MEDS: Tamsulosin HCL 0.4 MG CAPSULE PO (08:04)
[2024-08-19] MEDS: Midodrine HCl 10 MG TABLET PO (08:04)
[2024-08-19] MEDS: carvediloL 6.25 MG TABLET PO (08:04)
[2024-08-19] MEDS: Ezetimibe 10 MG TABLET PO (08:04)
[2024-08-19] MEDS: Gabapentin 300 MG CAPSULE PO (08:04)
[2024-08-19] MEDS: Finasteride 5 MG TABLET PO (08:04)
[2024-08-19] MEDS: Ferrous Sulfate 324 MG TABLET.DR PO (08:04)
[2024-08-19] MEDS: Lactulose 20 GM/30 ML SOLUTION PO (08:05)
[2024-08-19] MEDS: Lidocaine 4 % Patch ADH..PATCH 1 PATCH TRANSDERMA (08:05)
[2024-08-19] MEDS: 0.9 % Sodium Chloride Flush 3 ML SYRINGE IVFLUSH (08:09)
[2024-08-19 09:44] VITALS: BP 107/51; PULSE 60; O2SAT 93
--- NOTE | 2024-08-19 10:50 | W.MHC.F2F ---
Service Date Service Date: 08/19/24 Encounter Date of encounter: 08/19/24 Reasons for Services Signs and symptoms assessed: hepatic encephalopathy, weakness Reason for halfway: medication management and teach disease management Reason for physical therapy: energy conservation Homebound: Leaving the home is medically contraindicated at this time without the asist of a device and/or another person due th the listed conditions above and below. Reason homebound: weakness related to hospital stay and unable to drive Homebound supporting statement: homebound due to multiple medical issues, including advanced cirrhosis, prone to encephalopathy, generalized weakness and need for the help of another person Certification: Based on the above findings, I certify that this patient is confined to the home and needs intermittent halfway care, physical therapy and/or speech therapy, or continues to need occupational therapy. The patient is under my care, and I have initiated the establishment of the plan of care. The patient will be followed by a physician who will periodically review the plan of care. Time Spent With Patient Time: Total time managing care of this patient today ____ minutes.
--- NOTE | 2024-08-19 10:51 | MHC.CM.PN ---
IMM 08/17/24 Patient is discharged today to home. [facility] and [facility] [employer] services will resume. [facility] will provide homecare services. Initially [facility] was referred. They declined the patient after accepting him. Patient preferences obtained and a referral was sent to [facility]. Reviewed DP with HCP Octavio. He is agreeable with the DP. Patients has arrived to transport patient home.
[2024-08-19 11:15] LABS: Glucose, Whole Blood 223 mg/dL (60-115)
[2024-08-19] MEDS: Insulin Lispro 100 UNIT/ML 3 ML VIAL SUBCUT (11:56)
--- OUTSIDE RECORDS SUMMARY | 2024-08-23 16:02 | XMS_ITS | Continuity of Care Document ---
Author Organization [facility] Address [address] [address] Phone Care Team Providers Care Fish And Wildlife Biologist Name Role Phone NAMITA Jacobson RD, Shauna Unavailable Unavail able Advance Directives Directive Yes / No Effective Date File Name No Information Encounters Encounter Description Practice Location Reason(s) For Visit Diagnoses Date Provider Providers Copied on Encounter [facility], [address] [address], [place], [place], [id number], [place] tel:[phone] [facility] No Information Indira Villatoro. [address] [place], [address]. tel:[phone] Family History Family Member Type Diagnosis Age At Onset No Information Payers Payer name Insurance type Covered libertarian ID Authoriza tion(s) No Information Social History Type Description Quantity Date Captured Comments Sex Male Smoking Status No Information Chief Complaint And Reason For Visit No Information Reason For Referral Reason For Referral No Information History Of Present Illness Encounter Date Complaint History Of Prese nt Illness No Information Functional Status Date Functional Assessmen t No Information Instructions Date Instruction Additional Infor mation No Information Assessments Type Assessment Date No Information Patient Care Teams Name Effective Dates (start - stop) Status Members No Information
--- OUTSIDE RECORDS SUMMARY | 2024-08-23 16:02 | XMS_ITS | Clinical Summary ---
Author Organization Unknown Care Team Providers Care Computational Mathematician Name Role Phone RYAN TAPIA, LEI Unavailable Unavailable AUSTIN RN, NEYDA Unavailable Unavailable GUZMAN RN, GUILLERMO Unavailable Unavailable NORMA THORNE, RAPHAEL Unavailable Unavailable Payers Payer Name Policy Type Policy Number Effective Date Expira tion Date MEDICARE - NGS ID/[facility] [id number] [facility] [id number] Problems Condition Name Condition Details Condition Category Status Onset Date Resolution Date Last Treatment Date Treating Clinician Comments TYPE 2 DIABETES MELLITUS WITH DIABETIC POLYNEUROPAT HY Active 11-12 00:00: 00 TYPE 2 DIABETES MELLITUS W DIABETIC CHRONIC KIDNEY DISEASE Active 11-12 00:00: 00 CHRONIC KIDNEY DISEASE, STAGE 3 UNSPECIFIED Active 11-12 00:00: 00 MALIGNANT NEOPLASM OF PROSTATE Active 11-12 00:00: 00 UNSPECIFIED CIRRHOSIS OF LIVER Active 11-12 00:00: 00 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 Active 11-12 00:00: 00 ESSENTIAL (PRIMARY) HYPERTENSION Active 11-12 00:00: 00 ATHSCL HEART DISEASE OF [place] CORONARY ARTERY W/O ANG PCTRS Active 11-12 00:00: 00 POLYOSTEOART HRITIS, UNSPECIFIED Active 3 00:00: 00 SPINAL STENOSIS, SITE UNSPECIFIED Active 11-12 00:00: 00 OTHER PANCYTOPENIA Active 3 00:00: 00 ORTHOSTATIC HYPOTENSION Active 3 00:00: 00 Irritable bowel syndrome, unspecified Active 3 00:00: 00 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 Active 3 00:00: 00 ANXIETY DISORDER, UNSPECIFIED Active 11-12 00:00: 00 BENIGN PROSTATIC HYPERPLASIA WITHOUT LOWER URINRY TRACT SYMP Active 11-12 00:00: 00 OBSTRUCTIVE SLEEP APNEA (ADULT) (PEDIATRIC) Active 11-12 00:00: 00 HYPERLIPIDEM IA, UNSPECIFIED Active 11-12 00:00: 00 GASTRO-ESOPH AGEAL REFLUX 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 11-12 00:00: 00 SNF (CURRENT) USE OF ASPIRIN Active 11-12 00:00: 00 [employer] N[employer]SE (CURRENT) USE OF ORAL 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 DRUGS Active 11-12 00:00: 00 SNF (CURRENT) USE OF INSULIN Active 11-12 00:00: 00 LNG TRM (CRNT) USE INJECTABLE NON-INSULIN ANTIDIABETIC DRUGS Active 11-12 00:00: 00 PERSONAL HISTORY OF URINARY (TRACT) INFECTIONS Active 11-12 00:00: 00 PRESENCE OF XENOGENIC HEART VALVE Active 11-12 00:00: 00 PRESENCE OF CARDIAC PACEMAKER Active 11-12 00:00: 00 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 Ordering Clinician Indication Dosage Frequency Signature (SIG) Comments Components Tresiba FlexTouch U-100 insulin 100 unit/mL (3 mL) subcutaneou s pen 10-21 00:00: 00 02-01 23:59 :00 No [id number] Per instruc tions AT BEDTIME Per instructio ns AT BEDTIME (route: subcutaneo us) Med Classific ation: Endocrine bethanechol chloride 25 mg tablet 10-18 00:00: 00 04-25 00:00 :00 No [id number] Per instruc tions TWICE DAILY Per instructio ns TWICE DAILY (route: oral) Med Classific ation: Genitouri nary Therapy Farxiga 10 mg tablet 2-04 00:00: 00 08-01 23:59 :00 No [id number] Per instruc tions DAILY Per instructio ns DAILY (route: oral) Med Classific ation: Endocrine ezetimibe 10 mg tablet 1-30 00:00: 00 08-01 23:59 :00 No [id number] Unavailable Per instruc tions DAILY Per instructio ns DAILY (route: oral) Med Classific ation: Cardiovas cular Therapy Agents Novolog FlexPen U-100 Insulin aspart 100 unit/mL (3 mL) subcutane s 1- 00:00: 00 03-21 23:59 :00 No [id number] Per instruc tions 3 TIMES DAILY Per instructio ns 3 TIMES DAILY (route: subcutaneo us) Med Classific ation: Endocrine Basaglar KwikPen U-100 Insulin 100 unit/mL (3 mL) [facility] 1-25 00:00: 00 11-12 23:59 :00 No [id number] Unavailable Per instruc tions SUBCUTANEO US ONCE EVERY Per instructio ns SUBCUTANEO US ONCE EVERY (route: subcutaneo us) Med Classific ation: Endocrine alprazolam 0.5 mg tablet 1-22 00:00: 00 02-01 23:59 :00 No [id number] Unavailable Per instruc tions TWICE DAILY NEEDED Per instructio ns TWICE DAILY NEEDED (route: oral) Med Classific ation: Central Nervous System Agents aspirin 81 mg tablet,shayna yed release - 00:00: 00 04-25 23:59 :00 No [id number] 1 tablet DAILY 1 tablet DAILY (route: oral) Med Classific ation: Hematolog ical Agents atorvastati n 80 mg tablet 3- 00:00: 00 04-25 23:59 :00 No [id number] 1 tablet BEDTIME 1 tablet BEDTIME (route: oral) Med Classific ation: Cardiovas cular Therapy Agents carvedilol 6.25 mg tablet 11-12 00:00: 00 03-01 23:59 :00 No [id number] 1 tablet 2 TIMES DAILY 1 tablet 2 TIMES DAILY (route: oral) Med Classific ation: Cardiovas cular Therapy Agents finasteride 5 mg tablet 11-12 00:00: 00 08-01 23:59 :00 No [id number] 1 tablet DAILY 1 tablet DAILY (route: oral) Med Classific ation: Genitouri nary Therapy Flomax 0.4 mg capsule 11-12 00:00: 00 08-01 23:59 :00 No [id number] 1 capsule DAILY 1 capsule DAILY (route: oral) Med Classific ation: Genitouri nary Therapy gabapentin 400 mg capsule 11-12 00:00: 00 02-01 23:59 :00 No [id number] 1 capsule 2 TIMES DAILY 1 capsule 2 TIMES DAILY (route: oral) Med Classific ation: Central Nervous System Agents iron 325 mg (65 mg iron) tablet 11-12 00:00: 00 08-01 23:59 :00 No [id number] 1 tablet DAILY 1 tablet DAILY (route: oral) Med Classific ation: Electroly te Balance-N utritiona l Products pantoprazol e 40 mg tablet,shayna yed release 11-12 00:00: 00 08-01 23:59 :00 No [id number] 1 tablet DAILY 1 tablet DAILY (route: oral) Med Classific ation: Gastroint estinal Therapy Agents spironolact one 50 mg tablet 11-12 00:00: 00 02-01 23:59 :00 No [id number] 1 tablet DAILY 1 tablet DAILY (route: oral) Med Classific ation: Cardiovas cular Therapy Agents Trulicity 0.75 mg/0.5 mL subcutaneou s pen injector 11-12 00:00: 00 08-01 23:59 :00 No [id number] 0.5 mL WEEKLY 0.5 mL WEEKLY (route: subcutaneo us) Med Classific ation: Endocrine Vitamin B-12 500 mcg tablet 11-12 00:00: 00 02-01 00:00 :00 No [id number] 2 tablet BEDTIME 2 tablet BEDTIME (route: oral) Med Classific ation: Electroly te Balance-N utritiona l Products alprazolam 0.5 mg tablet 02-08 00:00: 00 04-25 23:59 :00 No [id number] 1 tablet 2 TIMES DAILY 1 tablet 2 TIMES DAILY (route: oral) Med Classific ation: Central Nervous System Agents bumetanide 1 mg tablet 02-01 00:00: 00 02-17 23:59 :00 No [id number] 1 mg DAILY 1 mg DAILY (route: oral) Med Classific ation: Cardiovas cular Therapy Agents ciprofloxac in 500 mg tablet 02-01 00:00: 00 02-02 23:59 :00 No [id number] 1 tablet DAILY 1 tablet DAILY (route: oral) Med Classific ation: Anti-Infe ctive Agents cyanocobala min (vit B-12) 500 mcg tablet 02-01 00:00: 00 08-01 23:59 :00 No [id number] 2 tablet BEDTIME 2 tablet BEDTIME (route: oral) Med Classific ation: Electroly te Balance-N utritiona l Products gabapentin 400 mg capsule 02-08 00:00: 00 04-25 23:59 :00 No [id number] 1 capsule 2 TIMES DAILY 1 capsule 2 TIMES DAILY (route: oral) Med Classific ation: Central Nervous System Agents lactulose 20 gram/30 mL oral solution 02-01 00:00: 00 04-25 23:59 :00 No [id number] 45 mL 3 TIMES DAILY 45 mL 3 TIMES DAILY (route: oral) Med Classific ation: Gastroint estinal Therapy Agents Tresiba FlexTouch U-100 insulin 100 unit/mL (3 mL) subcutaneou s pen 02-01 00:00: 00 08-01 23:59 :00 No [id number] 6 unit BEDTIME 6 unit BEDTIME (route: subcutaneo us) Med Classific ation: Endocrine bumetanide 1 mg tablet 02-17 00:00: 00 02-21 23:59 :00 No [id number] 2 tablet DAILY 2 tablet DAILY (route: oral) Med Classific ation: Cardiovas cular Therapy Agents bumetanide 1 mg tablet 02-17 00:00: 00 03-01 23:59 :00 No [id number] 1 tablet 2 TIMES DAILY 1 tablet 2 TIMES DAILY (route: oral) Med Classific ation: Cardiovas cular Therapy Agents spironolact one 25 mg tablet 03-01 00:00: 00 04-25 00:00 :00 No [id number] 2 tablet DAILY 2 tablet DAILY (route: oral) Med Classific ation: Cardiovas cular Therapy Agents torsemide 20 mg tablet 03-01 00:00: 00 04-25 00:00 :00 No [id number] 2 tablet DAILY 2 tablet DAILY (route: oral) Med Classific ation: Cardiovas cular Therapy Agents midodrine 10 mg tablet 03-01 00:00: 00 08-01 23:59 :00 No [id number] 1 tablet DIRECTED 1 tablet DIRECTED (route: oral) Med Classific ation: Cardiovas cular Therapy Agents Humulin R Regular U-100 Insulin 100 unit/mL injection solution 03-21 00:00: 00 04-25 00:00 :00 No [id number] 20 unit 3 TIMES DAILY 20 unit 3 TIMES DAILY (route: injection) Med Classific ation: Endocrine Basaglar KwikPen U-100 Insulin 100 unit/mL (3 mL) [facility] 04-25 00:00: 00 08-01 23:59 :00 No [id number] 1 unit 3 TIMES DAILY 1 unit 3 TIMES DAILY (route: subcutaneo us) Med Classific ation: Endocrine bumetanide 1 mg tablet 04-25 00:00: 00 08-01 23:59 :00 No [id number] 1 tablet DAILY 1 tablet DAILY (route: oral) Med Classific ation: Cardiovas cular Therapy Agents spironolact one 25 mg tablet 04-25 00:00: 00 08-01 23:59 :00 No [id number] 1 tablet DAILY 1 tablet DAILY (route: oral) Med Classific ation: Cardiovas cular Therapy Agents atorvastati n 80 mg tablet 04-26 00:00: 00 08-01 23:59 :00 No [id number] 0.5 tablet BEDTIME 0.5 tablet BEDTIME (route: oral) Med Classific ation: Cardiovas cular Therapy Agents carvedilol 6.25 mg tablet 04-26 00:00: 00 08-01 23:59 :00 No [id number] 1 tablet 2 TIMES DAILY 1 tablet 2 TIMES DAILY (route: oral) Med Classific ation: Cardiovas cular Therapy Agents alprazolam 0.5 mg tablet 04-26 00:00: 00 08-01 23:59 :00 No [id number] 1 tablet 2 TIMES DAILY 1 tablet 2 TIMES DAILY (route: oral) Med Classific ation: Central Nervous System Agents gabapentin 300 mg capsule 04-26 00:00: 00 08-01 23:59 :00 No [id number] 1 capsule 2 TIMES DAILY 1 capsule 2 TIMES DAILY (route: oral) Med Classific ation: Central Nervous System Agents cyanocobala min (vit B-12) 500 mcg tablet 04-26 00:00: 00 08-01 23:59 :00 No [id number] 2 tablet BEDTIME 2 tablet BEDTIME (route: oral) Med Classific ation: Electroly te Balance-N utritiona l Products lactulose 10 gram/15 mL oral solution 04-26 00:00: 00 08-01 23:59 :00 No [id number] 30 mL 2 TIMES DAILY 30 mL 2 TIMES DAILY (route: oral) Med Classific ation: Gastroint estinal Therapy Agents Vital Signs Vital Name Observation Time Observation Value Commen ts Temperature 2024-05-06 10:05:00.000 98.2 [degF] Temperature 2024-05-04 14:28:00.000 97.9 [degF] Temperature 2024-04-30 13:45:00.000 98.2 [degF] Temperature 2024-04-25 12:23:00.000 98.6 [degF] Temperature 2024-04-13 14:13:00.000 98.7 [degF] Temperature 2024-04-08 14:58:00.000 97.9 [degF] Temperature 2024-03-29 12:02:00.000 98.4 [degF] Temperature 2024-03-21 21:22:00.000 98.3 [degF] Temperature 2024-03-15 16:13:00.000 97.3 [degF] BMI (%) 2024-04-25 12:23:00.000 25 kg/m2 Height 2024-04-25 12:23:00.000 69 [in_us] Pulse 2024-05-06 10:05:00.000 72 /min Pulse 2024-05-04 14:28:00.000 98 /min Pulse 2024-04-30 13:45:00.000 73 /min Pulse 2024-04-25 12:23:00.000 68 /min Pulse 2024-04-13 14:13:00.000 69 /min Pulse 2024-04-08 14:58:00.000 72 /min Pulse 2024-03-29 12:02:00.000 70 /min Pulse 2024-03-21 21:22:00.000 66 /min Pulse 2024-03-15 16:13:00.000 62 /min O2 Saturation (%) 2024-05-06 10:05:00.000 97 % O2 Saturation (%) 2024-05-04 14:28:00.000 98 % O2 Saturation (%) 2024-04-30 13:45:00.000 97 % O2 Saturation (%) 2024-04-25 12:23:00.000 100 % O2 Saturation (%) 2024-04-13 14:13:00.000 98 % O2 Saturation (%) 2024-04-08 14:58:00.000 98 % O2 Saturation (%) 2024-03-29 12:02:00.000 98 % O2 Saturation (%) 2024-03-21 21:23:00.000 99 % Respirations 2024-05-06 10:05:00.000 20 /min Respirations 2024-05-04 14:28:00.000 18 /min Respirations 2024-04-30 13:45:00.000 18 /min Respirations 2024-04-25 12:23:00.000 20 /min Respirations 2024-04-13 14:13:00.000 18 /min Respirations 2024-04-08 14:58:00.000 18 /min Respirations 2024-03-29 12:02:00.000 18 /min Respirations 2024-03-21 21:22:00.000 18 /min Respirations 2024-03-15 16:13:00.000 18 /min Weight (lbs) 2024-04-25 12:23:00.000 176 [lb_av] Weight (lbs) 2024-04-13 14:13:00.000 185 [lb_av] Weight (lbs) 2024-03-21 21:23:00.000 200 [lb_av] Weight (lbs) 2024-03-15 16:15:00.000 200 [lb_av] Systolic Blood Pressure 2024-05-06 10:05:00.000 112 mm [Hg] Systolic Blood Pressure 2024-05-04 14:28:00.000 122 mm [Hg] Systolic Blood Pressure 2024-04-30 13:45:00.000 108 mm [Hg] Systolic Blood Pressure 2024-04-25 12:23:00.000 100 mm [Hg] Systolic Blood Pressure 2024-04-13 14:13:00.000 110 mm [Hg] Systolic Blood Pressure 2024-04-08 14:58:00.000 136 mm [Hg] Systolic Blood Pressure 2024-03-29 12:10:00.000 110 mm [Hg] Systolic Blood Pressure 2024-03-21 21:22:00.000 120 mm [Hg] Systolic Blood Pressure 2024-03-15 16:13:00.000 102 mm [Hg] Diastolic Blood Pressure 2024-05-06 10:05:00.000 60 mm [Hg] Diastolic Blood Pressure 2024-05-04 14:28:00.000 62 mm [Hg] Diastolic Blood Pressure 2024-04-30 13:45:00.000 58 mm [Hg] Diastolic Blood Pressure 2024-04-25 12:23:00.000 48 mm [Hg] Diastolic Blood Pressure 2024-04-13 14:13:00.000 62 mm [Hg] Diastolic Blood Pressure 2024-04-08 14:58:00.000 66 mm [Hg] Diastolic Blood Pressure 2024-03-29 12:10:00.000 60 mm [Hg] Diastolic Blood Pressure 2024-03-21 21:22:00.000 74 mm [Hg] Diastolic Blood Pressure 2024-03-15 16:13:00.000 52 mm [Hg] Plan of Treatment Planned Activity Planned Date Details Comments Future Scheduled Test SKILLED NU RSE TO EVALUATE PATIENT, IDENTIFY PRIMARY AND CO-MORBID CONDITIONS CODED PER CODING GUIDELINES, AND DEVELOP PATIENT SPECIFIC PLAN OF CARE THAT INCLUDES PATIENT GOAL FOR HOME HEALTH. [code = SKILLED NURSE TO EVALUATE PATIENT, IDENTIFY PRIMARY AND CO-MORBID CONDITIONS CODED PER CODING GUIDELINES, AND DEVELOP PATIENT SPECIFIC PLAN OF CARE THAT INCLUDES PATIENT GOAL FOR HOME HEALTH.] Future Scheduled Test SKILLED NU RSE TO REVIEW PATIENT MEDICATIONS. INSTRUCT PATIENT/CAREGIVER ON MONITORING OF EFFECTIVENESS, ADVERSE DRUG REACTIONS, SIDE EFFECTS OF ALL MEDICATIONS (PRESCRIPTION/-OTC), AND HOW AND WHEN TO REPORT PROBLEMS. [code = SKILLED NURSE TO REVIEW PATIENT MEDICATIONS. INSTRUCT PATIENT/CAREGIVER ON MONITORING OF EFFECTIVENESS, ADVERSE DRUG REACTIONS, SIDE EFFECTS OF ALL MEDICATIONS (PRESCRIPTION/-OTC), AND HOW AND WHEN TO REPORT PROBLEMS.] Future Scheduled Test SKILLED NU RSE TO ASSESS ANXIETY AND PROVIDE ASSISTANCE TO PATIENT FOR UNDERSTANDING AND MANAGEMENT OF FEELINGS. [code = SKILLED NURSE TO ASSESS ANXIETY AND PROVIDE ASSISTANCE TO PATIENT FOR UNDERSTANDING AND MANAGEMENT OF FEELINGS.] Future Scheduled Test SKILLED NU RSE FOR O/A AND TEACHING RELATED TO PROSTATE CANCER/NEOPLASM INCLUDING SIGNS AND SYMPTOMS OF DISEASE PROGRESSION, TREATMENT, AND MANAGEMENT OF POTENTIAL SIDE EFFECTS. [code = SKILLED NURSE FOR O/A AND TEACHING RELATED TO PROSTATE CANCER/NEOPLASM INCLUDING SIGNS AND SYMPTOMS OF DISEASE PROGRESSION, TREATMENT, AND MANAGEMENT OF POTENTIAL SIDE EFFECTS.] Future Scheduled Test SKILLED NU RSE FOR O/A, TEACHING, AND MANAGEMENT OF CARDIAC DISEASE [code = SKILLED NURSE FOR O/A, TEACHING, AND MANAGEMENT OF CARDIAC DISEASE] Future Scheduled Test SKILLED NU RSE FOR O/A, TEACHING RELATED TO GERD, IBS FOR EARLY IDENTIFICATION OF EXACERBATION OF DISEASE PROCESS. [code = SKILLED NURSE FOR O/A, TEACHING RELATED TO GERD, IBS FOR EARLY IDENTIFICATION OF EXACERBATION OF DISEASE PROCESS.] Future Scheduled Test SKILLED NU RSE FOR O/A, TEACHING AND MANAGEMENT OF CKD, BPH FOR EARLY IDENTIFICATION OF EXACERBATION OF DISEASE PROCESS [code = SKILLED NURSE FOR O/A, TEACHING AND MANAGEMENT OF CKD, BPH FOR EARLY IDENTIFICATION OF EXACERBATION OF DISEASE PROCESS] Future Scheduled Test SKILLED NU RSE TO PERFORM AND RECORD BLOOD SUGAR READING EACH VISIT AND PRN FOR SIGNS AND SYMPTOMS OF HYPO/HYPERGLYCEMIA. [code = SKILLED NURSE TO PERFORM AND RECORD BLOOD SUGAR READING EACH VISIT AND PRN FOR SIGNS AND SYMPTOMS OF HYPO/HYPERGLYCEMIA.] Future Scheduled Test SKILLED NU RSE FOR O/A AND TEACHING ON SIGNS AND SYMPTOMS AND MANAGEMENT OF HYPOTENSION [code = SKILLED NURSE FOR O/A AND TEACHING ON SIGNS AND SYMPTOMS AND MANAGEMENT OF HYPOTENSION] Future Scheduled Test SKILLED NU RSE FOR O/A AND SKILLED TEACHING RELATED TO SIGNS AND SYMPTOMS AND MANAGEMENT OF ANEMIA. [code = SKILLED NURSE FOR O/A AND SKILLED TEACHING RELATED TO SIGNS AND SYMPTOMS AND MANAGEMENT OF ANEMIA.] Future Scheduled Test SKILLED NU RSE FOR O/A AND TEACHING OF DIABETIC MANAGEMENT INCLUDING BLOOD SUGAR MONITORING/USE OF GLUCOMETER, DIABETIC DIET, LOWER EXTREMITY SKIN INSPECTION, PROPER SKIN/FOOT CARE, AND SIGNS AND SYMPTOMS HYPO/HYPERGLYCEMIA TO REPORT. [code = SKILLED NURSE FOR O/A AND TEACHING OF DIABETIC MANAGEMENT INCLUDING BLOOD SUGAR MONITORING/USE OF GLUCOMETER, DIABETIC DIET, LOWER EXTREMITY SKIN INSPECTION, PROPER SKIN/FOOT CARE, AND SIGNS AND SYMPTOMS HYPO/HYPERGLYCEMIA TO REPORT.] Future Scheduled Test SKILLED NU RSE FOR O/A, TEACHING RELATED TO LIVER CIRRHOSIS FOR EARLY IDENTIFICATION OF EXACERBATION OF DISEASE PROCESS. [code = SKILLED NURSE FOR O/A, TEACHING RELATED TO LIVER CIRRHOSIS FOR EARLY IDENTIFICATION OF EXACERBATION OF DISEASE PROCESS.] Future Scheduled Test SKILLED NU RSE FOR O/A AND SKILLED TEACHING RELATED TO SIGNS AND SYMPTOMS AND MANAGEMENT OF OA, SPINAL STENOSIS. [code = SKILLED NURSE FOR O/A AND SKILLED TEACHING RELATED TO SIGNS AND SYMPTOMS AND MANAGEMENT OF OA, SPINAL STENOSIS.] Future Scheduled Test PATIENT [place] A RISK OF HOSPITALIZATION AND ED USE. SKILLED NURSE TO ESTABLISH SUPPORT MEASURES TO MINIMIZE RISK OF HOSPITALIZATION AND ED USE, AND INSTRUCT PATIENT/CAREGIVER ON METHODS TO REDUCE AVOIDABLE HOSPITALIZATION AND ED USE. [code = PATIENT HAS A RISK OF HOSPITALIZATION AND ED USE. SKILLED NURSE TO ESTABLISH SUPPORT MEASURES TO MINIMIZE RISK OF HOSPITALIZATION AND ED USE, AND INSTRUCT PATIENT/CAREGIVER ON METHODS TO REDUCE AVOIDABLE HOSPITALIZATION AND ED USE.] Future Scheduled Test SKILLED NU RSE TO PROVIDE INSTRUCTION TO PATIENT/CAREGIVER RELATED TO DISCHARGE PLANNING. [code = SKILLED NURSE TO PROVIDE INSTRUCTION TO PATIENT/CAREGIVER RELATED TO DISCHARGE PLANNING.] Future Scheduled Test SKILLED NU RSE TO PERFORM HOME SAFETY AND FALL ASSESSMENT AND PROVIDE INSTRUCTION TO IMPLEMENT HOME SAFETY AND FALL PREVENTION STRATEGIES. [code = SKILLED NURSE TO PERFORM HOME SAFETY AND FALL ASSESSMENT AND PROVIDE INSTRUCTION TO IMPLEMENT HOME SAFETY AND FALL PREVENTION STRATEGIES.] Future Scheduled Test SKILLED NU RSE FOR OBSERVATION AND ASSESSMENT OF PATIENTS PAIN LEVEL AND EFFECTIVENESS OF PAIN MANAGEMENT REGIMEN. SKILLED NURSE TO INSTRUCT PATIENT/CAREGIVER REGARDING PHARMACOLOGIC AND NON-PHARMACOLOGIC PAIN CONTROL MEASURES. SKILLED NURSE TO REPORT TO PHYSICIAN IF PAIN IS UNCONTROLLED WITH CURRENT PAIN MANAGEMENT REGIMEN. [code = SKILLED NURSE FOR OBSERVATION AND ASSESSMENT OF PATIENTS PAIN LEVEL AND EFFECTIVENESS OF PAIN MANAGEMENT REGIMEN. SKILLED NURSE TO INSTRUCT PATIENT/CAREGIVER REGARDING PHARMACOLOGIC AND NON-PHARMACOLOGIC PAIN CONTROL MEASURES. SKILLED NURSE TO REPORT TO PHYSICIAN IF PAIN IS UNCONTROLLED WITH CURRENT PAIN MANAGEMENT REGIMEN.] Future Scheduled Test SKILLED NU RSE TO ASSESS PATIENT'S SKIN INTEGRITY AND INSTRUCT PATIENT/CAREGIVER ON MEASURES TO PREVENT PRESSURE ULCERS. [code = SKILLED NURSE TO ASSESS PATIENT'S SKIN INTEGRITY AND INSTRUCT PATIENT/CAREGIVER ON MEASURES TO PREVENT PRESSURE ULCERS.] Goal 2024-05-10 Patient Goal - GET RIDES AND GET BETTER Goal 2024-05-06 Patient Goal - GET RIDES AND GET BETTER Goal 2024-01-07 Patient Goal - GET RIDES AND GET BETTER Goal 2024-02-02 Patient Goal - GET RIDES AND GET BETTER Goal 2024-04-25 Patient Goal - GET RIDES AND GET BETTER Goal 2024-03-01 Patient Goal - GET RIDES AND GET BETTER Goal 2024-03-08 Patient Goal - GET RIDES AND GET BETTER Goal Provider Goal - A PLAN OF CARE WILL BE ESTABLISHED THAT MEETS PATIENT'S PRISON NEEDS AND INCLUDES PATIENT GOAL FOR HOME HEALTH. Goal Provider Goal - PATIENT/CAREGIVER WILL VERBALIZE UNDERSTANDING OF EDUCATION PROVIDED ON MEDICATIONS BY THE END OF THE CERTIFICATION PERIOD. Goal Provider Goal - SYMPTOMS OF ANXIETY ARE IDENTIFIED AND INTERVENTIONS INITIATED TO ENABLE PATIENT TO UNDERSTAND AND MANAGE FEELINGS THROUGHOUT EPISODE. Goal Provider Goal - PATIENT/CAREGIVER WILL VERBALIZE/DEMONSTRATE MANAGEMENT OF PROSTATE CANCER/NEOPLASM DISEASE AND THE SIDE EFFECTS OF TREATMENTS DURING THIS EPISODE. Goal Provider Goal - PATIENT/CAREGIVER WILL VERBALIZE/DEMONSTRATE MANAGEMENT OF CARDIAC DISEASE PROCESS AND EXACERBATIONS WILL BE IDENTIFIED AND PROMPTLY REPORTED THROUGHOUT THE CERTIFICATION PERIOD. Goal Provider Goal - EXACERBATIONS OF GASTROINTESTINAL DISEASE WILL BE PROMPTLY IDENTIFIED AND INTERVENTIONS IMPLEMENTED TO MINIMIZE RISKS TO PATIENT BY END OF EPISODE. Goal Provider Goal - PATIENT/CAREGIVER WILL VERBALIZE UNDERSTANDING OF GENITOURINARY DISEASE PROCESS, AND EXACERBATIONS OF GENITOURINARY DISEASE WILL BE PROMPTLY IDENTIFIED FOR EARLY INTERVENTION THROUGHOUT THE CERTIFICATION PERIOD. Goal Provider Goal - BLOOD SUGAR READING WILL BE OBTAINED ORDERED THROUGHOUT CERTIFICATION PERIOD. Goal Provider Goal - PATIENT/CAREGIVER WILL VERBALIZE SIGNS AND SYMPTOMS OF HYPOTENSION AND WILL BE ABLE TO DEMONSTRATE ABILITY TO MANAGE EXACERBATION BY END OF THE EPISODE. Goal Provider Goal - PATIENT/CARGIVER WILL VERBALIZE UNDERSTANDING OF ANEMIA INCLUDING SIGNS AND SYMPTOMS, MANAGEMENT OF COMPLICATIONS, AND PRESCRIBED TREATMENT REGIMEN BY END OF EPISODE. Goal Provider Goal - PATIENT/CAREGIVER WILL VERBALIZE/DEMONSTRATE KNOWLEDGE OF DIABETIC MANAGEMENT. CHANGES IN DIABETIC STATUS WILL BE IDENTIFIED AND REPORTED TO PHYSICIAN FOR PROMPT INTERVENTION THROUGHOUT THE CERTIFICATION PERIOD. Goal Provider Goal - EXACERBATIONS OF LIVER/PANCREATIC DISEASE WILL BE PROMPTLY IDENTIFIED AND INTERVENTIONS IMPLEMENTED TO MINIZMIZE RISKS TO PATIENT BY END OF THE EPISODE. Goal Provider Goal - PATIENT/CAREGIVER WILL VERBALIZE UNDERSTANDING OF MUSCULOSKELETAL DISEASE INCLUDING SIGNS AND SYMPTOMS, MANAGEMENT, AND PRESCRIBED TREATMENT REGIMEN BY END OF EPISODE. Goal Provider Goal - PATIENT WILL HAVE SUPPORT MEASURES ESTABLISHED TO PREVENT HOSPITALIZATION AND ED USE AND PATIENT/CAREGIVER WILL VERBALIZE/DEMONSTRATE METHODS TO REDUCE AVOIDABLE HOSPITALIZATION AND ED USE BY END OF EPISODE. Goal Provider Goal - PATIENT/CAREGIVER WILL VERBALIZE UNDERSTANDING OF DISCHARGE PLANNING INSTRUCTIONS BY DATE OF DISCHARGE. Goal Provider Goal - PATIENT/CAREGIVER WILL VERBALIZE/DEMONSTRATE EFFECTIVE HOME SAFETY AND FALL PREVENTION STRATEGIES THROUGHOUT CERTIFICATION PERIOD. Goal Provider Goal - PATIENT/CAREGIVER WILL DEMONSTRATE UNDERSTANDING OF PHARMACOLOGIC AND NONPHARMACOLOGIC PAIN CONTROL MEASURES AND PATIENT WILL HAVE IMPROVEMENT IN PAIN INTERFERING WITH ACTIVITY EVIDENCED BY PAIN CONTROLLED AT LEVEL OF 5) OR LESS BY END OF CERTIFICATION PERIOD. Goal Provider Goal - PATIENT/CAREGIVER WILL VERBALIZE UNDERSTANDING OF PRESSURE ULCER PREVENTION BY END OF THE EPISODE. Reason for Visit REMAINS INPATIENT AT TIME OF DISCHARGE Encounters Start Date/Time End Date/Time Encounter Type Admission Type Attending [facility] Care Facility Care Department Encounter ID Discharge Date Discharge Status Discharge Condition Discharge Reason Percent Goals Met 2023-11-13 00:00:00 2024-05-10 00:00:00 [facility] [id number] 2024-05-10 00:00:00 DISCHARGED /TRANSFERR ED TO A [facility] REMAINS INPATIENT AT TIME OF DISCHARGE REMAINS IN INPATIENT FACILITY AT END OF CERT PERIOD 75.76
--- OUTSIDE RECORDS SUMMARY | 2024-08-23 16:02 | XMS_ITS | Clinical Summary ---
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[place], CERVICAL REGION Active 02-08 00:00: 00 ENCEPHALOPAT HY, UNSPECIFIED Active 01-08 00:00: 00 HYPERTENSIVE HEART DISEASE WITH HEART FAILURE Active 09-14 00:00: 00 HEART FAILURE, UNSPECIFIED Active 09-14 00:00: 00 TYPE 2 DIABETES MELLITUS WITH DIABETIC NEPHROPATHY Active 09-14 00:00: 00 HEPATIC FAILURE, UNSPECIFIED WITHOUT COMA Active 02-08 00:00: 00 ATHSCL HEART DISEASE OF [place] CORONARY ARTERY W/O ANG PCTRS Active 09-14 00:00: 00 TYPE 2 DIABETES MELLITUS WITH DIABETIC POLYNEUROPAT HY Active 09-14 00:00: 00 UNSPECIFIED CIRRHOSIS OF LIVER Active 09-14 00:00: 00 OTHER CHRONIC PAIN Active 09-14 00:00: 00 SPINAL STENOSIS, SITE UNSPECIFIED Active 09-14 00:00: 00 ABNORMAL REFLEX Active 01-08 00:00: 00 ATRIOVENTRIC ULAR BLOCK, COMPLETE Active 09-14 00:00: 00 NONRHEUMATIC AORTIC (VALVE) STENOSIS Active 09-14 00:00: 00 ESOPHAGEAL VARICES WITHOUT BLEEDING Active 09-14 00:00: 00 IRON DEFICIENCY ANEMIA, UNSPECIFIED Active 09-14 00:00: 00 Irritable bowel syndrome, unspecified Active 09-14 00:00: 00 HYPERLIPIDEM IA, UNSPECIFIED Active 09-14 00:00: 00 OBSTRUCTIVE SLEEP APNEA (ADULT) (PEDIATRIC) Active 09-14 00:00: 00 GASTRO-ESOPH AGEAL REFLUX 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 09-14 00:00: 00 ENCOUNTER FOR ADJUSTMENT AND MANAGEMENT OF VAD Active 02-08 00:00: 00 [facility] (CURRENT) USE OF INSULIN Active 09-14 00:00: 00 LNG TRM (CRNT) USE INJECTABLE NON-INSULIN ANTIDIABETIC DRUGS Active 09-14 00:00: 00 [facility] (CURRENT) USE OF ORAL 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 DRUGS Active 09-14 00:00: 00 [facility] (CURRENT) USE OF ANTITHROMBOT ICS/ANTIPLAT ELETS Active 09-14 00:00: 00 PRESENCE OF CARDIAC PACEMAKER Active 09-14 00:00: 00 PERSONAL HISTORY OF MALIGNANT NEOPLASM OF PROSTATE Active 09-14 00:00: 00 CATARACT EXTRACTION STATUS, UNSPECIFIED EYE Active 09-14 00:00: 00 Allergies, Adverse Reactions, Alerts Allergy Name Allergy Type Status Severity Reaction(s) Onset Date Inactive Date Treating Clinician Comments CONTRAST DYE MEDIA Propensity to adverse reactions Active 01-14 10:23: 33 LATEX....... .... Propensity to adverse reactions Active 01-14 10:23: 43 TIZANIDINE Propensity to adverse reactions Active 02-08 16:10: 11 PREGABALIN Propensity to adverse reactions Active 02-08 16:10: 19 LISINOPRIL Propensity to adverse reactions Active 02-08 16:10: 33 Medications Ordered Medication Name Filled Medication Name Start Date Stop Date Current Medication? Ordering Clinician Indication Dosage Frequency Signature (SIG) Comments Components alprazolam 0.5 mg tablet 01-14 00:00: 00 02-08 23:59 :00 No [id number] ANXIETY 1 tablet 2 TIMES DAILY 1 tablet 2 TIMES DAILY (route: oral) Med Classific ation: Central Nervous System Agents atorvastati n 80 mg tablet 01-14 00:00: 00 Yes [id number] CHOLESTEROL 1 tablet DAILY 1 tablet DAILY (route: oral) Med Classific ation: Cardiovas cular Therapy Agents bethanechol chloride 25 mg tablet 01-14 00:00: 00 Yes [id number] BLADDER 1 tablet 2 TIMES DAILY 1 tablet 2 TIMES DAILY (route: oral) Med Classific ation: Genitouri nary Therapy Farxiga 10 mg tablet 01-14 00:00: 00 Yes [id number] DM2 1 tablet DAILY 1 tablet DAILY (route: oral) Med Classific ation: Endocrine finasteride 5 mg tablet 01-14 00:00: 00 Yes [id number] BPH 1 tablet DAILY 1 tablet DAILY (route: oral) Med Classific ation: Genitouri nary Therapy gabapentin 400 mg capsule 01-14 00:00: 00 Yes [id number] NERVE PAIN 1 capsule 3 TIMES DAILY 1 capsule 3 TIMES DAILY (route: oral) Med Classific ation: Central Nervous System Agents insulin aspar prot-insuli n aspart 100 unit/mL (70-30) [facility] 01-14 00:00: 00 01-16 16:23 :30.0 57 No [id number] DM2 2-25 In unit 3 TIMES DAILY 2-25 In unit 3 TIMES DAILY (route: subcutaneo us) Med Classific ation: Endocrine iron 325 mg (65 mg iron) tablet 01-14 00:00: 00 Yes [id number] SUPPLEMENT 1 tablet DAILY 1 tablet DAILY (route: oral) Med Classific ation: Electroly te Balance-N utritiona l Products mecobalamin (vitamin B12) 1,000 mcg chewable tablet 01-14 00:00: 00 Yes [id number] SUPPLEMENT 1 tablet DAILY 1 tablet DAILY (route: oral) Med Classific ation: Electroly te Balance-N utritiona l Products metoprolol succinate ER 100 mg tablet,exte nded release 24 hr 01-14 00:00: 00 02-08 23:59 :00 No [id number] HTN 1 tablet DAILY 1 tablet DAILY (route: oral) Med Classific ation: Cardiovas cular Therapy Agents omeprazole 20 mg capsule,del ayed release 01-14 00:00: 00 02-08 23:59 :00 No [id number] GERD 1 capsule 2 TIMES DAILY 1 capsule 2 TIMES DAILY (route: oral) Med Classific ation: Gastroint estinal Therapy Agents Plavix 75 mg tablet 01-14 00:00: 00 Yes [id number] CLOTING 1 tablet DAILY 1 tablet DAILY (route: oral) Med Classific ation: Hematolog ical Agents tamsulosin 0.4 mg capsule 01-14 00:00: 00 Yes [id number] BPH 1 capsule DAILY 1 capsule DAILY (route: oral) Med Classific ation: Genitouri nary Therapy torsemide 20 mg tablet 01-14 00:00: 00 02-08 23:59 :00 No [id number] EDEMA 1 tablet DAILY 1 tablet DAILY (route: oral) Med Classific ation: Cardiovas cular Therapy Agents tramadol 50 mg tablet 01-14 00:00: 00 Yes [id number] PAIN 0.5 tablet EVERY 6 HOURS 0.5 tablet EVERY 6 HOURS (route: oral) Med Classific ation: Analgesic , Anti-infl ammatory or Antipyret ic Tresiba FlexTouch U-100 insulin 100 unit/mL (3 mL) subcutaneou s pen 01-14 00:00: 00 02-08 23:59 :00 No [id number] DM2 64 In unit DAILY 64 In unit DAILY (route: subcutaneo us) Med Classific ation: Endocrine Trulicity 0.75 mg/0.5 mL subcutaneou s pen injector 01-14 00:00: 00 Yes [id number] DM2 0.5 mL WEEKLY 0.5 mL WEEKLY (route: subcutaneo us) Med Classific ation: Endocrine Zetia 10 mg tablet 01-14 00:00: 00 Yes [id number] CHOLESTEROL 1 tablet DAILY 1 tablet DAILY (route: oral) Med Classific ation: Cardiovas cular Therapy Agents ceftriaxone 1 gram intravenous solution 02-08 00:00: 00 03-08 23:59 :00 No [id number] infection 2 gram DAILY 2 gram DAILY (route: intravenou s) Med Classific ation: Anti-Infe ctive Agents sodium chloride 0.9 % intravenous solution 02-08 00:00: 00 Yes [id number] flush 10 mL DIRECTED 10 mL DIRECTED (route: intravenou s) Med Classific ation: Electroly te Balance-N utritiona l Products heparin, porcine (PF) 10 unit/mL intravenous syringe 02-08 00:00: 00 Yes [id number] flush 5 mL DIRECTED 5 mL DIRECTED (route: intravenou s) Med Classific ation: Hematolog ical Agents carvedilol 6.25 mg tablet 02-08 00:00: 00 Yes [id number] heart 1 tablet 2 TIMES DAILY 1 tablet 2 TIMES DAILY (route: oral) Med Classific ation: Cardiovas cular Therapy Agents Lasix 40 mg tablet 02-08 00:00: 00 Yes [id number] fluid 1 tablet 2 TIMES DAILY 1 tablet 2 TIMES DAILY (route: oral) Med Classific ation: Cardiovas cular Therapy Agents Tresiba U-100 Insulin 100 unit/mL subcutaneou s solution 02-08 00:00: 00 Yes [id number] blood sugar 10 unit BEDTIME 10 unit BEDTIME (route: subcutaneo us) Med Classific ation: Endocrine pantoprazol e 40 mg tablet,shayna yed release 02-08 00:00: 00 Yes [id number] gerd 1 tablet DAILY 1 tablet DAILY (route: oral) Med Classific ation: Gastroint estinal Therapy Agents Aldactone 100 mg tablet 02-08 00:00: 00 Yes [id number] BP 1 tablet DAILY 1 tablet DAILY (route: oral) Med Classific ation: Cardiovas cular Therapy Agents aspirin 81 mg tablet,shayna yed release 02-08 00:00: 00 Yes [id number] ANTICOAGULA NT 1 tablet DAILY 1 tablet DAILY (route: oral) Med Classific ation: Hematolog ical Agents ceftriaxone 2 gram intravenous solution 02-08 00:00: 00 03-08 23:59 :00 No [id number] CERVICAL OSTEOMYELIT IS 2 g DAILY 2 g DAILY (route: intravenou s) Med Classific ation: Anti-Infe ctive Agents Coreg 6.25 mg tablet 02-08 00:00: 00 Yes [id number] BP 1 tablet 2 TIMES DAILY 1 tablet 2 TIMES DAILY (route: oral) Med Classific ation: Cardiovas cular Therapy Agents lactulose 10 gram/15 mL (15 mL) oral solution 02-08 00:00: 00 Yes [id number] LAXATIVE 15 mL NEEDED 15 mL NEEDED (route: oral) Med Classific ation: Gastroint estinal Therapy Agents Lasix 40 mg tablet 02-08 00:00: 00 Yes [id number] DIURETIC 1 tablet DAILY 1 tablet DAILY (route: oral) Med Classific ation: Cardiovas cular Therapy Agents midodrine 10 mg tablet 02-08 00:00: 00 Yes [id number] BP 1 tablet 3 TIMES DAILY 1 tablet 3 TIMES DAILY (route: oral) Med Classific ation: Cardiovas cular Therapy Agents Novolog FlexPen U-100 Insulin aspart 100 unit/mL (3 mL) subcutaneou s 02-08 00:00: 00 Yes [id number] DM2 Per instruc tions BEFORE MEALS Per instructio ns BEFORE MEALS (route: subcutaneo us) Med Classific ation: Endocrine pantoprazol e 40 mg tablet,shayna yed release 02-08 00:00: 00 Yes [id number] REFLUX 1 tablet DAILY 1 tablet DAILY (route: oral) Med Classific ation: Gastroint estinal Therapy Agents Tresiba FlexTouch U-100 insulin 100 unit/mL (3 mL) subcutaneou s pen 02-08 00:00: 00 Yes [id number] DM2 10 unit BEDTIME 10 unit BEDTIME (route: subcutaneo us) Med Classific ation: Endocrine Vital Signs Vital Name Observation Time Observation Value Commen ts Temperature 2023-03-12 10:04:00.000 97.3 [degF] Temperature 2023-03-12 09:15:00.000 97.9 [degF] Temperature 2023-03-09 12:40:00.000 97.3 [degF] Temperature 2023-03-02 08:59:00.000 97.3 [degF] Temperature 2023-02-23 11:08:00.000 97.3 [degF] Temperature 2023-02-23 09:22:00.000 97.7 [degF] Temperature 2023-02-20 09:48:00.000 97.4 [degF] Temperature 2023-02-16 10:48:00.000 97.4 [degF] Temperature 2023-02-13 12:51:00.000 97.8 [degF] Temperature 2023-02-11 12:26:00.000 97.2 [degF] Temperature 2023-02-10 17:21:00.000 97.3 [degF] Temperature 2023-02-09 13:27:00.000 97.8 [degF] Temperature 2023-02-08 13:45:00.000 98.2 [degF] Temperature 2023-01-19 10:57:00.000 97.5 [degF] Temperature 2023-01-14 10:29:00.000 97.5 [degF] BMI (%) 2023-02-08 13:45:00.000 30 kg/m2 BMI (%) 2023-01-14 10:29:00.000 31 kg/m2 Height 2023-02-08 13:45:00.000 68 [in_us] Height 2023-01-14 10:29:00.000 69 [in_us] Pulse 2023-03-12 10:04:00.000 72 /min Pulse 2023-03-12 09:15:00.000 75 /min Pulse 2023-03-09 12:40:00.000 72 /min Pulse 2023-03-02 08:59:00.000 78 /min Pulse 2023-02-23 11:08:00.000 88 /min Pulse 2023-02-23 09:22:00.000 98 /min Pulse 2023-02-20 09:48:00.000 84 /min Pulse 2023-02-16 10:48:00.000 74 /min Pulse 2023-02-13 12:51:00.000 78 /min Pulse 2023-02-11 12:26:00.000 88 /min Pulse 2023-02-10 17:22:00.000 72 /min Pulse 2023-02-09 13:27:00.000 60 /min Pulse 2023-02-08 13:45:00.000 61 /min Pulse 2023-01-19 10:57:00.000 67 /min Pulse 2023-01-14 10:29:00.000 78 /min O2 Saturation (%) 2023-03-12 10:04:00.000 99 % O2 Saturation (%) 2023-03-09 12:40:00.000 98 % O2 Saturation (%) 2023-03-02 08:59:00.000 98 % O2 Saturation (%) 2023-02-23 11:08:00.000 99 % O2 Saturation (%) 2023-02-23 09:22:00.000 95 % O2 Saturation (%) 2023-02-20 09:48:00.000 98 % O2 Saturation (%) 2023-02-16 10:48:00.000 99 % O2 Saturation (%) 2023-02-11 12:26:00.000 98 % O2 Saturation (%) 2023-02-10 17:21:00.000 99 % O2 Saturation (%) 2023-02-09 13:27:00.000 97 % O2 Saturation (%) 2023-02-08 13:45:00.000 96 % O2 Saturation (%) 2023-01-19 10:57:00.000 96 % O2 Saturation (%) 2023-01-14 10:29:00.000 98 % Respirations 2023-03-12 10:04:00.000 18 /min Respirations 2023-03-12 09:15:00.000 18 /min Respirations 2023-03-09 12:40:00.000 18 /min Respirations 2023-03-02 08:59:00.000 18 /min Respirations 2023-02-23 11:08:00.000 18 /min Respirations 2023-02-23 09:22:00.000 18 /min Respirations 2023-02-20 09:48:00.000 18 /min Respirations 2023-02-16 10:48:00.000 18 /min Respirations 2023-02-13 12:51:00.000 18 /min Respirations 2023-02-11 12:26:00.000 18 /min Respirations 2023-02-10 17:21:00.000 18 /min Respirations 2023-02-09 13:27:00.000 16 /min Respirations 2023-02-08 13:45:00.000 18 /min Respirations 2023-01-19 10:57:00.000 18 /min Respirations 2023-01-14 10:29:00.000 18 /min Weight (lbs) 2023-03-12 10:04:00.000 186 [lb_av] Weight (lbs) 2023-03-12 09:18:00.000 186 [lb_av] Weight (lbs) 2023-03-09 12:40:00.000 185 [lb_av] Weight (lbs) 2023-03-02 08:59:00.000 186 [lb_av] Weight (lbs) 2023-02-23 11:08:00.000 188 [lb_av] Weight (lbs) 2023-02-23 09:22:00.000 184 [lb_av] Weight (lbs) 2023-02-20 09:48:00.000 185 [lb_av] Weight (lbs) 2023-02-16 10:48:00.000 189 [lb_av] Weight (lbs) 2023-02-13 12:51:00.000 193 [lb_av] Weight (lbs) 2023-02-11 12:26:00.000 187 [lb_av] Weight (lbs) 2023-02-08 13:45:00.000 202.4 [lb_av] Weight (lbs) 2023-01-19 10:57:00.000 213 [lb_av] Weight (lbs) 2023-01-14 10:29:00.000 214.1 [lb_av] Systolic Blood Pressure 2023-03-12 10:04:00.000 126 mm [Hg] Systolic Blood Pressure 2023-03-12 09:15:00.000 124 mm [Hg] Systolic Blood Pressure 2023-03-09 12:40:00.000 128 mm [Hg] Systolic Blood Pressure 2023-03-02 08:59:00.000 162 mm [Hg] Systolic Blood Pressure 2023-02-23 11:08:00.000 128 mm [Hg] Systolic Blood Pressure 2023-02-23 09:22:00.000 140 mm [Hg] Systolic Blood Pressure 2023-02-20 09:48:00.000 125 mm [Hg] Systolic Blood Pressure 2023-02-16 10:48:00.000 142 mm [Hg] Systolic Blood Pressure 2023-02-13 12:51:00.000 128 mm [Hg] Systolic Blood Pressure 2023-02-11 12:26:00.000 124 mm [Hg] Systolic Blood Pressure 2023-02-10 17:21:00.000 116 mm [Hg] Systolic Blood Pressure 2023-02-09 13:27:00.000 126 mm [Hg] Systolic Blood Pressure 2023-02-08 13:45:00.000 110 mm [Hg] Systolic Blood Pressure 2023-01-19 10:57:00.000 130 mm [Hg] Systolic Blood Pressure 2023-01-14 10:29:00.000 122 mm [Hg] Diastolic Blood Pressure 2023-03-12 10:04:00.000 68 mm [Hg] Diastolic Blood Pressure 2023-03-12 09:15:00.000 64 mm [Hg] Diastolic Blood Pressure 2023-03-09 12:40:00.000 72 mm [Hg] Diastolic Blood Pressure 2023-03-02 08:59:00.000 82 mm [Hg] Diastolic Blood Pressure 2023-02-23 11:08:00.000 72 mm [Hg] Diastolic Blood Pressure 2023-02-23 09:22:00.000 63 mm [Hg] Diastolic Blood Pressure 2023-02-20 09:48:00.000 65 mm [Hg] Diastolic Blood Pressure 2023-02-16 10:48:00.000 72 mm [Hg] Diastolic Blood Pressure 2023-02-13 12:51:00.000 60 mm [Hg] Diastolic Blood Pressure 2023-02-11 12:26:00.000 72 mm [Hg] Diastolic Blood Pressure 2023-02-10 17:21:00.000 76 mm [Hg] Diastolic Blood Pressure 2023-02-09 13:27:00.000 64 mm [Hg] Diastolic Blood Pressure 2023-02-08 13:45:00.000 68 mm [Hg] Diastolic Blood Pressure 2023-01-19 10:57:00.000 66 mm [Hg] Diastolic Blood Pressure 2023-01-14 10:29:00.000 76 mm [Hg] Plan of Treatment Planned Activity Planned Date Details Comments Future Scheduled Test OCCUPATION AL THERAPIST TO EVALUATE [code = OCCUPATIONAL THERAPIST TO EVALUATE ] Future Scheduled Test MEDICATION MANAGEMENT; SKILLED NURSE TO REVIEW MEDICATIONS FOR INTERACTIONS, EFFECTIVENESS OF DRUG THERAPY, AND SIGNS/SYMPTOMS OF ADVERSE REACTIONS. MAY INSTRUCT AND REINFORCE MEDICATION TEACHING RELATED TO THE USE OF MEDICATIONS, DOSAGE, FREQUENCY, PURPOSE, SIDE EFFECTS, AND TO REPORT COMPLICATIONS. [code = MEDICATION MANAGEMENT; SKILLED NURSE TO REVIEW MEDICATIONS FOR INTERACTIONS, EFFECTIVENESS OF DRUG THERAPY, AND SIGNS/SYMPTOMS OF ADVERSE REACTIONS. MAY INSTRUCT AND REINFORCE MEDICATION TEACHING RELATED TO THE USE OF MEDICATIONS, DOSAGE, FREQUENCY, PURPOSE, SIDE EFFECTS, AND TO REPORT COMPLICATIONS.] Future Scheduled Test FALL REDUC TION MANAGEMENT; NURSING TO PROVIDE SKILLED ASSESSMENT, EDUCATION, AND INTERVENTION TO IDENTIFY FALL RISK FACTORS SUCH MEDICATIONS THAT MAY CAUSE DIZZINESS, CHRONIC DISEASES, PSYCHOLOGICAL FACTORS, AND EMPOWER/EDUCATE PATIENT/CAREGIVER TO MINIMIZE FALL RISK. [code = FALL REDUCTION MANAGEMENT; NURSING TO PROVIDE SKILLED ASSESSMENT, EDUCATION, AND INTERVENTION TO IDENTIFY FALL RISK FACTORS SUCH MEDICATIONS THAT MAY CAUSE DIZZINESS, CHRONIC DISEASES, PSYCHOLOGICAL FACTORS, AND EMPOWER/EDUCATE PATIENT/CAREGIVER TO MINIMIZE FALL RISK.] Future Scheduled Test DIABETES M ANAGEMENT; SKILLED NURSE FOR INSTRUCTIONS OF DIABETIC CARE TO INCLUDE: DIET DIABETIC SKIN CARE, SIGNS AND SYMPTOMS OF HYPO/HYPERGLYCEMIA, PROPER ADMINISTRATION OF DIABETIC MEDICATION. SKILLED NURSE TO INSTRUCT ON DIABETIC FOOT CARE AND MONITOR FOR SKIN LESIONS ON LOWER EXTREMITIES. BLOOD GLUCOSE TESTING 4 X DAILY SKILLED NURSE TO ASSESS PATIENT/CAREGIVER ABILITY TO PERFORM AND RECORD BLOOD GLUCOSE TESTING ORDERED AND TO REPORT ABNORMAL FINDINGS TO PHYSICIAN. SKILLED NURSE MAY PERFORM BLOOD GLUCOSE TEST NEEDED. SKILLED NURSE TO REPORT TO PHYSICIAN BLOOD GLUCOSE READINGS GREATER THAN 350 OR LESS THAN 70. SKILLED NURSE TO INSTRUCT PATIENT ON IMPORTANCE OF HGBA1C MONITORING, KIDNEY FUNCTION TEST, EYE AND FOOT EXAMS. [code = DIABETES MANAGEMENT; SKILLED NURSE FOR INSTRUCTIONS OF DIABETIC CARE TO INCLUDE: DIET DIABETIC SKIN CARE, SIGNS AND SYMPTOMS OF HYPO/HYPERGLYCEMIA, PROPER ADMINISTRATION OF DIABETIC MEDICATION. SKILLED NURSE TO INSTRUCT ON DIABETIC FOOT CARE AND MONITOR FOR SKIN LESIONS ON LOWER EXTREMITIES. BLOOD GLUCOSE TESTING 4 X DAILY SKILLED NURSE TO ASSESS PATIENT/CAREGIVER ABILITY TO PERFORM AND RECORD BLOOD GLUCOSE TESTING ORDERED AND TO REPORT ABNORMAL FINDINGS TO PHYSICIAN. SKILLED NURSE MAY PERFORM BLOOD GLUCOSE TEST NEEDED. SKILLED NURSE TO REPORT TO PHYSICIAN BLOOD GLUCOSE READINGS GREATER THAN 350 OR LESS THAN 70. SKILLED NURSE TO INSTRUCT PATIENT ON IMPORTANCE OF HGBA1C MONITORING, KIDNEY FUNCTION TEST, EYE AND FOOT EXAMS. ] Future Scheduled Test SKILLED NU RSE TO ASSESS, EVALUATE, AND DEVELOP AN INDIVIDUALIZED PLAN OF CARE. AGENCY MAY ACCEPT ORDERS FROM CONSULTING PHYSICIANS. SN TO OBSERVE/ASSESS RISK FOR FALLS AND INSTRUCT IN FALL PREVENTION, HOME SAFETY, MEDICATION MANAGEMENT, INFECTION PREVENTION, AND NUTRITION MANAGEMENT. SN MAY PERFORM O2 SATURATION LEVEL ON ADMISSION AND PRN TO ASSESS PATIENT, WITH NOTIFICATION TO THE PHYSICIAN IF SATURATION IS 90% IN THE ABSENCE OF MORE SPECIFIC PARAMETERS FROM THE PHYSICIAN. AGENCY MAY PERFORM A RESUMPTION OF CARE VISIT FOLLOWING ANY HOSPITAL ADMISSION. SKILLED NURSE TO ASSESS/EVALUATE CO-MORBID CONDITIONS AND ANY NEW CONDITIONS THAT PRESENT THEMSELVES DURING THIS EPISODE TO IDENTIFY CHANGES AND INTERVENE TO MINIMIZE COMPLICATIONS. [code = SKILLED NURSE TO ASSESS, EVALUATE, AND DEVELOP AN INDIVIDUALIZED PLAN OF CARE. AGENCY MAY ACCEPT ORDERS FROM CONSULTING PHYSICIANS. SN TO OBSERVE/ASSESS RISK FOR FALLS AND INSTRUCT IN FALL PREVENTION, HOME SAFETY, MEDICATION MANAGEMENT, INFECTION PREVENTION, AND NUTRITION MANAGEMENT. SN MAY PERFORM O2 SATURATION LEVEL ON ADMISSION AND PRN TO ASSESS PATIENT, WITH NOTIFICATION TO THE PHYSICIAN IF SATURATION IS 90% IN THE ABSENCE OF MORE SPECIFIC PARAMETERS FROM THE PHYSICIAN. AGENCY MAY PERFORM A RESUMPTION OF CARE VISIT FOLLOWING ANY HOSPITAL ADMISSION. SKILLED NURSE TO ASSESS/EVALUATE CO-MORBID CONDITIONS AND ANY NEW CONDITIONS THAT PRESENT THEMSELVES DURING THIS EPISODE TO IDENTIFY CHANGES AND INTERVENE TO MINIMIZE COMPLICATIONS.] Future Scheduled Test PAIN MANAG EMENT; SKILLED NURSE TO OBSERVE, ASSESS, AND PROVIDE EDUCATION ON PAIN MANAGEMENT TECHNIQUES. [code = PAIN MANAGEMENT; SKILLED NURSE TO OBSERVE, ASSESS, AND PROVIDE EDUCATION ON PAIN MANAGEMENT TECHNIQUES.] Future Scheduled Test RISK FOR H OSPITALIZATION; SKILLED NURSE TO INSTRUCT PATIENT/CAREGIVER ON RISK FOR HOSPITALIZATION/EMERGENCY ROOM VISITS, TEACH SIGNS AND SYMPTOMS THAT PUT PATIENT AT RISK, WHEN TO NOTIFY NURSE/PHYSICIAN OF COMPLICATIONS/DECLINE, AND WHEN TO CALL 911. [code = RISK FOR HOSPITALIZATION; SKILLED NURSE TO INSTRUCT PATIENT/CAREGIVER ON RISK FOR HOSPITALIZATION/EMERGENCY ROOM VISITS, TEACH SIGNS AND SYMPTOMS THAT PUT PATIENT AT RISK, WHEN TO NOTIFY NURSE/PHYSICIAN OF COMPLICATIONS/DECLINE, AND WHEN TO CALL 911.] Future Scheduled Test CARDIOVASC ULAR SYSTEM; SKILLED NURSE TO ASSESS AND TEACH RELATED TO ALTERED CARDIOVASCULAR STATUS TO MINIMIZE COMPLICATIONS AND REDUCE HOSPITALIZATION. [code = CARDIOVASCULAR SYSTEM; SKILLED NURSE TO ASSESS AND TEACH RELATED TO ALTERED CARDIOVASCULAR STATUS TO MINIMIZE COMPLICATIONS AND REDUCE HOSPITALIZATION.] Future Scheduled Test HEART FAIL URE; SKILLED NURSE TO ASSESS CARDIOPULMONARY SYSTEM TO IDENTIFY SIGNS OF DECOMPENSATION AND INTERVENE TO MINIMIZE THE SEVERITY OF FLUID OVERLOAD. ASSESS PATIENT ABILITY TO MONITOR AND RECORD DAILY WEIGHTS AND VITAL SIGNS, INCLUDING PULSE AND BLOOD PRESSURE; RECORD PATIENT REPORTED WEIGHT, OR WEIGH PATIENT NEEDED. REPORT INCREASED EDEMA OR WEIGHT GAIN OF >2 LBS IN 1 DAY OR >5 LBS IN 1 WEEK OR 5LBS OR MORE OVER TARGET WEIGHT. MAY MEASURE ABDOMINAL GIRTH IF UNABLE TO WEIGH. SCALES AND BP MONITOR TO BE PROVIDED IF NEEDED. [code = HEART FAILURE; SKILLED NURSE TO ASSESS CARDIOPULMONARY SYSTEM TO IDENTIFY SIGNS OF DECOMPENSATION AND INTERVENE TO MINIMIZE THE SEVERITY OF FLUID OVERLOAD. ASSESS PATIENT ABILITY TO MONITOR AND RECORD DAILY WEIGHTS AND VITAL SIGNS, INCLUDING PULSE AND BLOOD PRESSURE; RECORD PATIENT REPORTED WEIGHT, OR WEIGH PATIENT NEEDED. REPORT INCREASED EDEMA OR WEIGHT GAIN OF >2 LBS IN 1 DAY OR >5 LBS IN 1 WEEK OR 5LBS OR MORE OVER TARGET WEIGHT. MAY MEASURE ABDOMINAL GIRTH IF UNABLE TO WEIGH. SCALES AND BP MONITOR TO BE PROVIDED IF NEEDED. ] Future Scheduled Test AGENCY MAY PERFORM A RESUMPTION OF CARE VISIT FOLLOWING ANY HOSPITAL ADMISSION. PHYSICAL THERAPY TO EVALUATE, ASSESS AND MONITOR, PROVIDE SKILLED THERAPEUTIC INTERVENTION, ACTIVITY, EDUCATION, AND TRAINING TO ADDRESS: TRANSFER TRAINING (PT) GAIT TRAINING (PT) NEUROMUSCULAR RE-EDUCATION / BALANCE RETRAINING (PT) THERAPEUTIC EXERCISES (PT) STAIR TRAINING (PT) OXYGEN SATURATION (PT). NOTIFY MD IF 02SATS BELOW 90% AFTER 10 MIN OF REST. 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 MAY TEACH THE PATIENT FLOOR RECOVERY WHEN CLINICALLY APPROPRIATE (PT) [code = AGENCY MAY PERFORM A RESUMPTION OF CARE VISIT FOLLOWING ANY HOSPITAL ADMISSION. PHYSICAL THERAPY TO EVALUATE, ASSESS AND MONITOR, PROVIDE SKILLED THERAPEUTIC INTERVENTION, ACTIVITY, EDUCATION, AND TRAINING TO ADDRESS: TRANSFER TRAINING (PT) GAIT TRAINING (PT) NEUROMUSCULAR RE-EDUCATION / BALANCE RETRAINING (PT) THERAPEUTIC EXERCISES (PT) STAIR TRAINING (PT) OXYGEN SATURATION (PT). NOTIFY MD IF 02SATS BELOW 90% AFTER 10 MIN OF REST. 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 MAY TEACH THE PATIENT FLOOR RECOVERY WHEN CLINICALLY APPROPRIATE (PT)] Goal 2023-02-08 Patient Goal - CONTINUE TO G ET BETTER Goal 2023-03-12 Patient Goal - CONTINUE TO G ET BETTER Goal Provider Goal - Goal Provider Goal - PATIENT/CAREGIVER TO VERBALIZE, AND CONSISTENTLY DEMONSTRATE EFFECTIVE, SAFE MANAGEMENT OF MEDICATION INCLUDING KNOWLEDGE OF EFFECTIVENESS, POTENTIAL SIDE EFFECTS AND DRUG REACTIONS AND WHEN TO CONTACT THE APPROPRIATE CARE PROVIDER. PATIENT/CAREGIVER WILL BE ABLE TO VERBALIZE UNDERSTANDING OF MEDICATION REGIMEN AND ACCURATELY TAKE MEDICATIONS PRESCRIBED WITHOUT ADVERSE EFFECTS BY 03/14 Goal Provider Goal - PATIENT/CAREGIVER ABLE TO IDENTIFY FALL RISK FACTORS AND IMPLEMENT STRATEGIES TO MINIMIZE FALL RISK. PATIENT/CAREGIVER WILL VERBALIZE/DEMONSTRATE AN ABILITY TO ADHERE TO FALL REDUCTION SELF MANAGEMENT AND LIFE-STYLE CHANGES AT DISCHARGE. PERSONAL GOAL(S) STATED BY PATIENT/CAREGIVER WILL BE MET BY 03/14 Goal Provider Goal - PATIENT / CAREGIVER WILL VERBALIZE / DEMONSTRATE AN ABILITY TO ADHERE TO SELF-MANAGEMENT OF DIABETES MANAGEMENT BY EOE Goal Provider Goal - A PLAN OF CARE WILL BE ESTABLISHED THAT MEETS THE PATIENTS NEEDS. PATIENT WILL DEMONSTRATE OXYGEN SATURATION WITHIN NORMAL LIMITS OR PATIENTS OPTIMAL LEVEL ESTABLISHED BY THE PHYSICIAN THROUGHOUT CARE. CHANGES TO CO-MORBID CONDITIONS AND ANY NEW CONDITIONS WILL BE IDENTIFIED AND REPORTED TO THE PHYSICIAN. Goal Provider Goal - PATIENT / CAREGIVER WILL VERBALIZE / DEMONSTRATE UNDERSTANDING OF PAIN CONTROL MEASURES BY 7 Goal Provider Goal - PATIENT/CAREGIVER WILL VERBALIZE UNDERSTANDING OF SIGNS AND SYMPTOMS THAT PUT THE PATIENT AT RISK FOR HOSPITALIZATION /EMERGENCY ROOM VISITS, WHEN TO NOTIFY NURSE/PHYSICIAN OF COMPLICATIONS/DECLINE AND WHEN TO CALL 911. Goal Provider Goal - PATIENT / CAREGIVER WILL VERBALIZE/DEMONSTRATE UNDERSTANDING OF MEASURES TO MANAGE ALTERED CARDIOVASCULAR STATUS BY EOE Goal Provider Goal - PATIENT / CAREGIVER WILL VERBALIZE/DEMONSTRATE AN ABILITY TO ADHERE TO SELF-MANAGEMENT OF HF TO MINIMIZE COMPLICATIONS AND AVOID HOSPITALIZATION BY END OF EPISODE. Goal Provider Goal - PT STG: PATIENT WILL DEMONSTRATE INDEPENDENCE WITH SIT TO AND FROM SUPINE TRANSFERS WITHIN 4 WEEKS PT LTG: PATIENT WILL DEMONSTRATE IMPROVED TRANSFERS FROM MIN ASSIST TO INDEPENDENT WITH UE ASSIST WITHIN 4 WEEKS PT STG: PATIENT WILL DEMONSTRATE PROPER POSITIONING WITHIN WALKER BASE, ADEQUATE STEP LENGTH, FOOT CLEARANCE AND CONSISTENT HEEL STRIKE BILATERALLY TO IMPROVE GAIT PATTERN WITHIN 4 WEEKS PT LTG: PATIENT WILL DEMONSTRATE IMPROVED AMBULATION FROM MIN ASSIST TO INDEPENDENT WITH WALKER WITHIN 9 WEEKS PT LTG: PATIENT WILL DEMONSTRATE REDUCED FALL RISK EVIDENCED BY TUG TEST (CUT SCORE >11 SECONDS INDICATES INCREASED FALL RISK) IMPROVING FROM UNABLE TO 20 SECONDS WITHIN 9 WEEKS PT STG: PATIENT WILL DEMONSTRATE INDEPENDENCE WITH LOWER EXTREMITY HOME EXERCISE PROGRAM WITHIN 4 WEEKS PT LTG: PATIENT WILL DEMONSTRATE INCREASED STRENGTH OF BILATERAL LES FROM 3-/5 TO 4/5 WITHIN 9 WEEKS IN ORDER TO IMPROVE SAFETY AND STABILITY WITH GAIT AND STAIRS PT STG: PATIENT WILL DEMONSTRATE PROPER PACING AND SEQUENCING WITH STAIR MOBILITY WITHIN 4 WEEKS PT LTG: PATIENT WILL DEMONSTRATE IMPROVED ABILITY TO SAFELY NEGOTIATE STAIRS FROM NT TO INDEPENDENT WITH RAIL WITHIN 9 WEEKS PATIENT WILL MAINTAIN OXYGEN SATURATION WITHIN PHYSICIAN ORDERED PARAMETERS THROUGHOUT EPISODE OF CARE PATIENTS BLOOD SUGAR WILL REMAIN WELL CONTROLLED THROUGHOUT EPISODE OF CARE AND PATIENT WILL NOT HAVE ANY SIGNS OF SKIN BREAKDOWN OR COMPLICATIONS. PT GOAL: PATIENTS WEIGHT WILL REMAIN WELL CONTROLLED THROUGHOUT EPISODE OF CARE. PATIENT/CAREGIVER WILL DEMONSTRATE ADHERENCE TO FALL REDUCTION SELF MANAGEMENT TO MINIMIZE FALL RISK BY DISCHARGE. Reason for Visit [facility]DEPENDENT IN THE COMMUNITY Encounters Start Date/Time End Date/Time Encounter Type Admission Type Attending [facility] Care Department Encounter ID Discharge Date Discharge Status Discharge Condition Discharge Reason Percent Goals Met 2023-01-14 00:00:00 2023-03-12 00:00:00 Outpatient GRETA DELGADO [facility] [id number] 2023-03-12 00:00:00 DISCHARGE TO HOME OR SELF CARE INDEPENDEN T IN THE COMMUNITY HH OR PAL- GOALS MET 100.00
== END 2024-08-19 12:04 | disposition home health service (06) | DRG 442 ==
LOC: HO.ED 21:33 → HO.EDOVER 08-17 03:31 → HO.S3 08-18 09:16 → HO.EDOVER 08-18 10:28 → HO.S3 08-18 16:58
PROVIDERS: Admitting Provider Physician Assistant; Emergency Provider Internal Medicine; PCP Physician Assistant; Visit Provider Internal Medicine
DX: K76.82 Hepatic encephalopathy (principal); I13.0 Hypertensive heart and chronic kidney disease with heart failure and stage 1 through stage 4 chronic kidney disease, or unspecified chronic kidney disease; N18.4 Chronic kidney disease, stage 4 (severe); I50.32 Chronic diastolic (congestive) heart failure; I85.10 Secondary esophageal varices without bleeding; T47.3X6A Underdosing of saline and osmotic laxatives, initial encounter; Z91.128 Patient's intentional underdosing of medication regimen for other reason; E78.5 Hyperlipidemia, unspecified; D69.6 Thrombocytopenia, unspecified; Z85.46 Personal history of malignant neoplasm of prostate; K74.60 Unspecified cirrhosis of liver; D50.9 Iron deficiency anemia, unspecified; I25.10 Atherosclerotic heart disease of native coronary artery without angina pectoris; E11.22 Type 2 diabetes mellitus with diabetic chronic kidney disease; Z95.2 Presence of prosthetic heart valve; E11.42 Type 2 diabetes mellitus with diabetic 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; Z79.4 Long term (current) use of insulin; Z79.899 Other long term (current) drug therapy
CPT/HCPCS: 36415; 80053; 81001; 82140; 82947; 83735; 85025; 85610; 86850; 86900; 86901; 94660; 97116; 97161; 99285

== ENCOUNTER → 2024-08-17 03:25 | Outpatient (BNV) | payer MEDICARE, SELFPAY | PROVIDERS: Admitting Provider Physician Assistant; Emergency Provider Internal Medicine; Visit Provider Physician Assistant | DX: K76.82 Hepatic encephalopathy (principal); K72.90 Hepatic failure, unspecified without coma; K74.60 Unspecified cirrhosis of liver; E11.22 Type 2 diabetes mellitus with diabetic chronic kidney disease | CPT/HCPCS: 99223; 99232; 99239; 99499; G0180 ==

== ENCOUNTER 2024-08-22 07:17 | Outpatient (REF) | payer MEDICARE, SELFPAY ==
[2024-08-22 11:33] LABS: MANUAL DIFF FLAG NO
[2024-08-22 11:53] LABS: Basophils Absolute Auto 0.1 X10*3/uL (0.0-0.2); Eosinophils Absolute Auto 0.1 X10*3/uL (0.0-0.4); Eosinophils Percent Auto 2.7 % (0-4); Hematocrit 26.6 % (42.0-52.0); Hemoglobin 8.2 g/dl (14.0-18.0); Imm Gran Abs Auto 0.02 X10*3/uL (0.00-0.03); Imm Gran Pct Auto 0.4 % (0.0-0.4); Lymphocytes Absolute Auto 0.4 X10*3/uL (1.2-4.9); Mean Corpuscular HGB Conc 30.8 g/dl (31.0-36.0); Mean Corpuscular Hemoglobin 27.9 pg (27.0-33.0); Mean Corpuscular Volume 90.5 fL (80.0-98.0); Mean Platelet Volume 10.8 fL (9.4-12.4); Monocytes Absolute Auto 0.8 X10*3/uL (0.1-1.2); Monocytes Percent Auto 14.3 % (2-11); Neutrophils Absolute Auto 3.9 x10*3/uL (2.0-8.3); Neutrophils Percent Auto 73.6 % (45-73); Red Blood Count 2.94 X10*6/uL (4.60-5.80); Red Cell Distribution Width 17.9 % (11.0-16.0); White Blood Count 5.2 X10*3/uL (4.8-10.8)
[2024-08-22 11:54] LABS: Platelet Count 87 X10*3/uL (160-400)
[2024-08-22 12:30] LABS: Ferritin 50 ng/mL (20-250)
--- OUTSIDE RECORDS SUMMARY | 2024-08-24 12:37 | XMS_ITS | Clinical Summary ---
Author Organization Unknown Care Team Providers Care Communications Equipment Supervisor Name Role Phone RYAN TAPIA, LEI Unavailable Unavailable AUSTIN RN, NEYDA Unavailable Unavailable GUZMAN RN, GUILLERMO Unavailable Unavailable NORMA THORNE, RAPHAEL Unavailable Unavailable Payers Payer Name Policy Type Policy Number Effective Date Expira tion Date MEDICARE - NGS [place]/[facility] [id number] [facility] [id number] Problems Condition Name Condition Details Condition Category [...] 11-12 00:00: 00 ATHSCL HEART DISEASE OF [place] CORONARY ARTERY W/O ANG PCTRS Active 11-12 [...] 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 11-12 00:00: 00 PRISON (CURRENT) USE OF ASPIRIN Active 11-12 00:00: 00 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 ORAL 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 DRUGS Active 11-12 00:00: 00 PRISON (CURRENT) USE OF INSULIN Active 11-12 00:00: [...] 10-21 00:00: 00 02-01 23:59 :00 No [id number] Per instruc tions AT BEDTIME Per instructio ns AT BEDTIME (route: subcutaneo us) Med Classific ation: Endocrine bethanechol chloride 25 mg tablet 10-18 00:00: 00 04-25 00:00 :00 No [id number] Per instruc tions TWICE DAILY Per instructio ns TWICE DAILY (route: oral) Med Classific ation: Genitouri nary Therapy Farxiga 10 mg tablet 2-04 00:00: 00 08-01 23:59 :00 No [id number] Per instruc tions DAILY Per instructio ns DAILY (route: oral) Med Classific ation: Endocrine ezetimibe 10 mg tablet 1-30 00:00: 00 08-01 23:59 :00 No [id number] Unavailable Per instruc tions DAILY Per instructio ns DAILY (route: oral) Med Classific ation: Cardiovas cular Therapy Agents Novolog FlexPen U-100 Insulin aspart 100 unit/mL (3 mL) subcutane s 1- 00:00: 00 03-21 23:59 :00 No [id number] Per instruc tions 3 TIMES DAILY Per instructio ns 3 TIMES DAILY (route: subcutaneo us) Med Classific ation: Endocrine Basaglar KwikPen U-100 [facility]ulin 100 unit[facility]mL (3 mL) [facility] 1-25 00:00: 00 11-12 23:59 :00 No [id number] Unavailable Per instruc tions SUBCUTANEO US ONCE EVERY Per instructio ns SUBCUTANEO US ONCE EVERY (route: subcutaneo us) Med Classific ation: Endocrine alprazolam 0.5 mg tablet 1-22 00:00: 00 02-01 23:59 :00 No [id number] Unavailable Per instruc tions TWICE DAILY NEEDED Per instructio ns TWICE DAILY NEEDED (route: oral) Med Classific ation: Central Nervous System Agents aspirin 81 mg tablet,shayna yed release - 00:00: 00 04-25 23:59 :00 No [id number] 1 tablet DAILY 1 tablet DAILY (route: oral) Med Classific ation: Hematolog ical Agents atorvastati n 80 mg tablet 3- 00:00: 00 04-25 23:59 :00 No [id number] 1 tablet BEDTIME 1 tablet BEDTIME (route: oral) Med Classific ation: Cardiovas cular Therapy Agents carvedilol 6.25 mg tablet 11-12 00:00: 00 03-01 23:59 :00 No [id number] 1 tablet 2 TIMES DAILY 1 tablet 2 TIMES DAILY (route: oral) Med Classific ation: Cardiovas cular Therapy Agents finasteride 5 mg tablet 11-12 00:00: 00 08-01 23:59 :00 No [id number] 1 tablet DAILY 1 tablet DAILY (route: oral) Med Classific ation: Genitouri nary Therapy Flomax 0.4 mg capsule 11-12 00:00: 00 08-01 23:59 :00 No [id number] 1 capsule DAILY 1 capsule DAILY (route: oral) Med Classific ation: Genitouri nary Therapy gabapentin 400 mg capsule 11-12 00:00: 00 02-01 23:59 :00 No [id number] 1 capsule 2 TIMES DAILY 1 capsule 2 TIMES DAILY (route: oral) Med Classific ation: Central Nervous System Agents iron 325 mg (65 mg iron) tablet 11-12 00:00: 00 08-01 23:59 :00 No [id number] 1 tablet DAILY 1 tablet DAILY (route: oral) Med Classific ation: Electroly te Balance-N utritiona l Products pantoprazol e 40 mg tablet,shayna yed release 11-12 00:00: 00 08-01 23:59 :00 No [id number] 1 tablet DAILY 1 tablet DAILY (route: oral) Med Classific ation: Gastroint estinal Therapy Agents spironolact one 50 mg tablet 11-12 00:00: 00 02-01 23:59 :00 No [id number] 1 tablet DAILY 1 tablet DAILY (route: oral) Med Classific ation: Cardiovas cular Therapy Agents Trulicity 0.75 mg/0.5 mL subcutaneou s pen injector 11-12 00:00: 00 08-01 23:59 :00 No [id number] 0.5 mL WEEKLY 0.5 mL WEEKLY (route: subcutaneo us) Med Classific ation: Endocrine Vitamin B-12 500 mcg tablet 11-12 00:00: 00 02-01 00:00 :00 No [id number] 2 tablet BEDTIME 2 tablet BEDTIME (route: oral) Med Classific ation: Electroly te Balance-N utritiona l Products alprazolam 0.5 mg tablet 02-08 00:00: 00 04-25 23:59 :00 No [id number] 1 tablet 2 TIMES DAILY 1 tablet 2 TIMES DAILY (route: oral) Med Classific ation: Central Nervous System Agents bumetanide 1 mg tablet 02-01 00:00: 00 02-17 23:59 :00 No [id number] 1 mg DAILY 1 mg DAILY (route: oral) Med Classific ation: Cardiovas cular Therapy Agents ciprofloxac in 500 mg tablet 02-01 00:00: 00 02-02 23:59 :00 No [id number] 1 tablet DAILY 1 tablet DAILY (route: oral) Med Classific ation: Anti-Infe ctive Agents cyanocobala min (vit B-12) 500 mcg tablet 02-01 00:00: 00 08-01 23:59 :00 No [id number] 2 tablet BEDTIME 2 tablet BEDTIME (route: oral) Med Classific ation: Electroly te Balance-N utritiona l Products gabapentin 400 mg capsule 02-08 00:00: 00 04-25 23:59 :00 No [id number] 1 capsule 2 TIMES DAILY 1 capsule 2 TIMES DAILY (route: oral) Med Classific ation: Central Nervous System Agents lactulose 20 gram/30 mL oral solution 02-01 00:00: 00 04-25 23:59 :00 No [id number] 45 mL 3 TIMES DAILY 45 mL 3 TIMES DAILY (route: oral) Med Classific ation: Gastroint estinal Therapy Agents Tresiba FlexTouch U-100 insulin 100 unit/mL (3 mL) subcutaneou s pen 02-01 00:00: 00 08-01 23:59 :00 No [id number] 6 unit BEDTIME 6 unit BEDTIME (route: subcutaneo us) Med Classific ation: Endocrine bumetanide 1 mg tablet 02-17 00:00: 00 02-21 23:59 :00 No [id number] 2 tablet DAILY 2 tablet DAILY (route: oral) Med Classific ation: Cardiovas cular Therapy Agents bumetanide 1 mg tablet 02-17 00:00: 00 03-01 23:59 :00 No [id number] 1 tablet 2 TIMES DAILY 1 tablet 2 TIMES DAILY (route: oral) Med Classific ation: Cardiovas cular Therapy Agents spironolact one 25 mg tablet 03-01 00:00: 00 04-25 00:00 :00 No [id number] 2 tablet DAILY 2 tablet DAILY (route: oral) Med Classific ation: Cardiovas cular Therapy Agents torsemide 20 mg tablet 03-01 00:00: 00 04-25 00:00 :00 No [id number] 2 tablet DAILY 2 tablet DAILY (route: oral) Med Classific ation: Cardiovas cular Therapy Agents midodrine 10 mg tablet 03-01 00:00: 00 08-01 23:59 :00 No [id number] 1 tablet DIRECTED 1 tablet DIRECTED (route: oral) Med Classific ation: Cardiovas cular Therapy Agents Humulin R Regular U-100 Insulin 100 unit/mL injection solution 03-21 00:00: 00 04-25 00:00 :00 No [id number] 20 unit 3 TIMES DAILY 20 unit 3 TIMES DAILY (route: injection) Med Classific ation: Endocrine Basaglar KwikPen U-100 Insulin 100 unit/mL (3 mL) [facility] 04-25 00:00: 00 08-01 23:59 :00 No [id number] 1 unit 3 TIMES DAILY 1 unit 3 TIMES DAILY (route: subcutaneo us) Med Classific ation: Endocrine bumetanide 1 mg tablet 04-25 00:00: 00 08-01 23:59 :00 No [id number] 1 tablet DAILY 1 tablet DAILY (route: oral) Med Classific ation: Cardiovas cular Therapy Agents spironolact one 25 mg tablet 04-25 00:00: 00 08-01 23:59 :00 No [id number] 1 tablet DAILY 1 tablet DAILY (route: oral) Med Classific ation: Cardiovas cular Therapy Agents atorvastati n 80 mg tablet 04-26 00:00: 00 08-01 23:59 :00 No [id number] 0.5 tablet BEDTIME 0.5 tablet BEDTIME (route: oral) Med Classific ation: Cardiovas cular Therapy Agents carvedilol 6.25 mg tablet 04-26 00:00: 00 08-01 23:59 :00 No [id number] 1 tablet 2 TIMES DAILY 1 tablet 2 TIMES DAILY (route: oral) Med Classific ation: Cardiovas cular Therapy Agents alprazolam 0.5 mg tablet 04-26 00:00: 00 08-01 23:59 :00 No [id number] 1 tablet 2 TIMES DAILY 1 tablet 2 TIMES DAILY (route: oral) Med Classific ation: Central Nervous System Agents gabapentin 300 mg capsule 04-26 00:00: 00 08-01 23:59 :00 No [id number] 1 capsule 2 TIMES DAILY 1 capsule 2 TIMES DAILY (route: oral) Med Classific ation: Central Nervous System Agents cyanocobala min (vit B-12) 500 mcg tablet 04-26 00:00: 00 08-01 23:59 :00 No [id number] 2 tablet BEDTIME 2 tablet BEDTIME (route: oral) Med Classific ation: Electroly te Balance-N utritiona l Products lactulose 10 gram/15 mL oral solution 04-26 00:00: 00 08-01 23:59 :00 No [id number] 30 mL 2 TIMES DAILY 30 mL [...] ON MEASURES TO PREVENT PRESSURE ULCERS.] Goal 2024-01-07 Patient Goal - GET RIDES AND GET BETTER Goal 2024-05-10 Patient Goal - GET RIDES [...] CARE WILL BE ESTABLISHED THAT MEETS PATIENT'S USP NEEDS AND INCLUDES PATIENT GOAL FOR HOME [...] End Date/Time Encounter Type Admission Type Attending [facility] Care Facility Care Department Encounter ID Discharge Date Discharge Status Discharge Condition Discharge Reason Percent Goals Met 2023-11-13 00:00:00 2024-05-10 00:00:00 [facility] [id number] 2024-05-10 00:00:00 DISCHARGED /TRANSFERR ED TO A [facility] FOR INPATIENT CARE REMAINS INPATIENT AT TIME OF DISCHARGE REMAINS IN INPATIENT FACILITY AT END OF CERT PERIOD 75.76
--- OUTSIDE RECORDS SUMMARY | 2024-08-24 12:37 | XMS_ITS | Clinical Summary ---
Author Organization Unknown Care Team Providers Care Electrician Journeyman Wireman Name Role Phone RYAN TAPIA, LEI Unavailable Unavailable JOSE THORNE, GRETA Unavailable Unavailable Payers Payer Name Policy Type Policy Number Effective Date Expira tion Date MEDICARE.NGS.PDGM [id number] Problems Condition Name Condition Details Condition Category [...] 02-08 00:00: 00 ATHSCL HEART DISEASE OF [place] CORONARY ARTERY W/O ANG PCTRS Active 09-14 [...] MANAGEMENT OF VAD Active 02-08 00:00: 00 GROUP HOME (CURRENT) USE OF INSULIN Active 09-14 00:00: 00 LNG TRM (CRNT) USE INJECTABLE NON-INSULIN ANTIDIABETIC DRUGS Active 09-14 00:00: 00 GROUP HOME (CURRENT) USE OF ORAL 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 DRUGS Active 09-14 00:00: 00 GROUP HOME (CURRENT) USE OF ANTITHROMBOT ICS/ANTIPLAT ELETS Active [...] 01-14 00:00: 00 02-08 23:59 :00 No [id number] ANXIETY 1 tablet 2 TIMES DAILY 1 tablet 2 TIMES DAILY (route: oral) Med Classific ation: Central Nervous System Agents atorvastati n 80 mg tablet 01-14 00:00: 00 Yes [id number] CHOLESTEROL 1 tablet DAILY 1 tablet DAILY (route: oral) Med Classific ation: Cardiovas cular Therapy Agents bethanechol chloride 25 mg tablet 01-14 00:00: 00 Yes [id number] BLADDER 1 tablet 2 TIMES DAILY 1 tablet 2 TIMES DAILY (route: oral) Med Classific ation: Genitouri nary Therapy Farxiga 10 mg tablet 01-14 00:00: 00 Yes [id number] DM2 1 tablet DAILY 1 tablet DAILY (route: oral) Med Classific ation: Endocrine finasteride 5 mg tablet 01-14 00:00: 00 Yes [id number] BPH 1 tablet DAILY 1 tablet DAILY (route: oral) Med Classific ation: Genitouri nary Therapy gabapentin 400 mg capsule 01-14 00:00: 00 Yes [id number] NERVE PAIN 1 capsule 3 TIMES DAILY 1 capsule 3 TIMES DAILY (route: oral) Med Classific ation: Central Nervous System Agents insulin aspar prot-insuli n aspart 100 unit/mL (70-30) [facility] 01-14 00:00: 00 01-16 16:23 :30.0 57 No [id number] DM2 2-25 In unit 3 TIMES DAILY 2-25 In unit 3 TIMES DAILY (route: subcutaneo us) Med Classific ation: Endocrine iron 325 mg (65 mg iron) tablet 01-14 00:00: 00 Yes [id number] SUPPLEMENT 1 tablet DAILY 1 tablet DAILY (route: oral) Med Classific ation: Electroly te Balance-N utritiona l Products mecobalamin (vitamin B12) 1,000 mcg chewable tablet 01-14 00:00: 00 Yes [id number] SUPPLEMENT 1 tablet DAILY 1 tablet DAILY (route: oral) Med Classific ation: Electroly te Balance-N utritiona l Products metoprolol succinate ER 100 mg tablet,exte nded release 24 hr 01-14 00:00: 00 02-08 23:59 :00 No [id number] HTN 1 tablet DAILY 1 tablet DAILY (route: oral) Med Classific ation: Cardiovas cular Therapy Agents omeprazole 20 mg capsule,del ayed release 01-14 00:00: 00 02-08 23:59 :00 No [id number] GERD 1 capsule 2 TIMES DAILY 1 capsule 2 TIMES DAILY (route: oral) Med Classific ation: Gastroint estinal Therapy Agents Plavix 75 mg tablet 01-14 00:00: 00 Yes [id number] CLOTING 1 tablet DAILY 1 tablet DAILY (route: oral) Med Classific ation: Hematolog ical Agents tamsulosin 0.4 mg capsule 01-14 00:00: 00 Yes [id number] BPH 1 capsule DAILY 1 capsule DAILY (route: oral) Med Classific ation: Genitouri nary Therapy torsemide 20 mg tablet 01-14 00:00: 00 02-08 23:59 :00 No [id number] EDEMA 1 tablet DAILY 1 tablet DAILY (route: oral) Med Classific ation: Cardiovas cular Therapy Agents tramadol 50 mg tablet 01-14 00:00: 00 Yes [id number] PAIN 0.5 tablet EVERY 6 HOURS 0.5 tablet EVERY 6 HOURS (route: oral) Med Classific ation: Analgesic , Anti-infl ammatory or Antipyret ic Tresiba FlexTouch U-100 insulin 100 unit/mL (3 mL) subcutaneou s pen 01-14 00:00: 00 02-08 23:59 :00 No [id number] DM2 64 In unit DAILY 64 In unit DAILY (route: subcutaneo us) Med Classific ation: Endocrine Trulicity 0.75 mg/0.5 mL subcutaneou s pen injector 01-14 00:00: 00 Yes [id number] DM2 0.5 mL WEEKLY 0.5 mL WEEKLY (route: subcutaneo us) Med Classific ation: Endocrine Zetia 10 mg tablet 01-14 00:00: 00 Yes [id number] CHOLESTEROL 1 tablet DAILY 1 tablet DAILY (route: oral) Med Classific ation: Cardiovas cular Therapy Agents ceftriaxone 1 gram intravenous solution 02-08 00:00: 00 03-08 23:59 :00 No [id number] infection 2 gram DAILY 2 gram DAILY (route: intravenou s) Med Classific ation: Anti-Infe ctive Agents sodium chloride 0.9 % intravenous solution 02-08 00:00: 00 Yes [id number] flush 10 mL DIRECTED 10 mL DIRECTED (route: intravenou s) Med Classific ation: Electroly te Balance-N utritiona l Products heparin, porcine (PF) 10 unit/mL intravenous syringe 02-08 00:00: 00 Yes [id number] flush 5 mL DIRECTED 5 mL DIRECTED (route: intravenou s) Med Classific ation: Hematolog ical Agents carvedilol 6.25 mg tablet 02-08 00:00: 00 Yes [id number] heart 1 tablet 2 TIMES DAILY 1 tablet 2 TIMES DAILY (route: oral) Med Classific ation: Cardiovas cular Therapy Agents Lasix 40 mg tablet 02-08 00:00: 00 Yes [id number] fluid 1 tablet 2 TIMES DAILY 1 tablet 2 TIMES DAILY (route: oral) Med Classific ation: Cardiovas cular Therapy Agents Tresiba U-100 Insulin 100 unit/mL subcutaneou s solution 02-08 00:00: 00 Yes [id number] blood sugar 10 unit BEDTIME 10 unit BEDTIME (route: subcutaneo us) Med Classific ation: Endocrine pantoprazol e 40 mg tablet,shayna yed release 02-08 00:00: 00 Yes [id number] gerd 1 tablet DAILY 1 tablet DAILY (route: oral) Med Classific ation: Gastroint estinal Therapy Agents Aldactone 100 mg tablet 02-08 00:00: 00 Yes [id number] BP 1 tablet DAILY 1 tablet DAILY (route: oral) Med Classific ation: Cardiovas cular Therapy Agents aspirin 81 mg tablet,shayna yed release 02-08 00:00: 00 Yes [id number] ANTICOAGULA NT 1 tablet DAILY 1 tablet DAILY (route: oral) Med Classific ation: Hematolog ical Agents ceftriaxone 2 gram intravenous solution 02-08 00:00: 00 03-08 23:59 :00 No [id number] CERVICAL OSTEOMYELIT IS 2 g DAILY 2 g DAILY (route: intravenou s) Med Classific ation: Anti-Infe ctive Agents Coreg 6.25 mg tablet 02-08 00:00: 00 Yes [id number] BP 1 tablet 2 TIMES DAILY 1 tablet 2 TIMES DAILY (route: oral) Med Classific ation: Cardiovas cular Therapy Agents lactulose 10 gram/15 mL (15 mL) oral solution 02-08 00:00: 00 Yes [id number] LAXATIVE 15 mL NEEDED 15 mL NEEDED (route: oral) Med Classific ation: Gastroint estinal Therapy Agents Lasix 40 mg tablet 02-08 00:00: 00 Yes [id number] DIURETIC 1 tablet DAILY 1 tablet DAILY (route: oral) Med Classific ation: Cardiovas cular Therapy Agents midodrine 10 mg tablet 02-08 00:00: 00 Yes [id number] BP 1 tablet 3 TIMES DAILY 1 tablet 3 TIMES DAILY (route: oral) Med Classific ation: Cardiovas cular Therapy Agents Novolog FlexPen U-100 Insulin aspart 100 unit/mL (3 mL) subcutaneou s 02-08 00:00: 00 Yes [id number] DM2 Per instruc tions BEFORE MEALS Per instructio ns BEFORE MEALS (route: subcutaneo us) Med Classific ation: Endocrine pantoprazol e 40 mg tablet,shayna yed release 02-08 00:00: 00 Yes [id number] REFLUX 1 tablet DAILY 1 tablet DAILY (route: oral) Med Classific ation: Gastroint estinal Therapy Agents Tresiba FlexTouch U-100 insulin 100 unit/mL (3 mL) subcutaneou s pen 02-08 00:00: 00 Yes [id number] DM2 10 unit BEDTIME 10 unit BEDTIME [...] PATIENT REPORTED WEIGHT AND NOTIFY CM / ASSISTANT PROFESSOR OF ECONOMICS FOR MD NOTIFICATION FOR SIGNS AND SYMPTOMS [...] PATIENT REPORTED WEIGHT AND NOTIFY CM / ASSISTANT PROFESSOR OF ECONOMICS FOR MD NOTIFICATION FOR SIGNS AND SYMPTOMS [...] End Date/Time Encounter Type Admission Type Attending [facility] Care Department Encounter ID Discharge Date Discharge Status Discharge Condition Discharge Reason Percent Goals Met 2023-01-14 00:00:00 2023-03-12 00:00:00 Outpatient GRETA DELGADO [facility] [id number] 2023-03-12 00:00:00 DISCHARGE TO HOME OR SELF CARE INDEPENDEN T IN THE COMMUNITY HH OR PAL- GOALS MET 100.00
--- OUTSIDE RECORDS SUMMARY | 2024-08-24 12:37 | XMS_ITS | Continuity of Care Document ---
Author Organization [facility] Address [address] [address] Phone Care Team Providers Care Strategic Planning Consultant Name Role Phone NAMITA Jacobson RD, Shauna Unavailable Unavail able Advance Directives Directive Yes / No Effective Date File Name No Information Encounters Encounter Description Practice Location Reason(s) For Visit Diagnoses Date Provider Providers Copied on Encounter [facility], [address] [address], [place], [place], [id number], [place] tel:[phone] [facility] No Information Indira Villatoro. [address] [place], [address]. tel:[phone] Family History Family Member Type Diagnosis Age [...]
--- OUTSIDE RECORDS SUMMARY | 2024-08-24 12:37 | XMS_ITS | Clinical Summary ---
Author Organization Unknown Care Team Providers Care Veneer Jointer Operator Name Role Phone RYAN TAPIA, LEI Unavailable Unavailable AUSTIN RN, NEYDA Unavailable Unavailable GUZMAN RN, GUILLERMO Unavailable Unavailable NORMA THORNE, RAPHAEL Unavailable Unavailable Payers Payer Name Policy Type Policy Number Effective Date Expira tion Date MEDICARE - [place] [id number] [facility] [id number] Problems Condition Name Condition Details Condition Category [...] 11-12 00:00: 00 ATHSCL HEART DISEASE OF [place] CORONARY ARTERY W/O ANG PCTRS Active 11-12 [...] 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 11-12 00:00: 00 [facility] (CURRENT) USE OF ASPIRIN Active 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 (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) USE OF ORAL 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 DRUGS Active 11-12 00:00: 00 [facility] (CURRENT) USE OF INSULIN Active 11-12 00:00: [...] 10-21 00:00: 00 02-01 23:59 :00 No [id number] Per instruc tions AT BEDTIME Per instructio ns AT BEDTIME (route: subcutaneo us) Med Classific ation: Endocrine bethanechol chloride 25 mg tablet 10-18 00:00: 00 04-25 00:00 :00 No [id number] Per instruc tions TWICE DAILY Per instructio ns TWICE DAILY (route: oral) Med Classific ation: Genitouri nary Therapy Farxiga 10 mg tablet 2-04 00:00: 00 08-01 23:59 :00 No [id number] Per instruc tions DAILY Per instructio ns DAILY (route: oral) Med Classific ation: Endocrine ezetimibe 10 mg tablet 1-30 00:00: 00 08-01 23:59 :00 No [id number] Unavailable Per instruc tions DAILY Per instructio ns DAILY (route: oral) Med Classific ation: Cardiovas cular Therapy Agents Novolog FlexPen U-100 Insulin aspart 100 unit/mL (3 mL) subcutane s 1- 00:00: 00 03-21 23:59 :00 No [id number] Per instruc tions 3 TIMES DAILY Per instructio ns 3 TIMES DAILY (route: subcutaneo us) Med Classific ation: Endocrine Basaglar KwikPen U-100 Insulin 100 unit/mL (3 mL) [facility] 1-25 00:00: 00 11-12 23:59 :00 No [id number] Unavailable Per instruc tions SUBCUTANEO US ONCE EVERY Per instructio ns SUBCUTANEO US ONCE EVERY (route: subcutaneo us) Med Classific ation: Endocrine alprazolam 0.5 mg tablet 1-22 00:00: 00 02-01 23:59 :00 No [id number] Unavailable Per instruc tions TWICE DAILY NEEDED Per instructio ns TWICE DAILY NEEDED (route: oral) Med Classific ation: Central Nervous System Agents aspirin 81 mg tablet,shayna yed release - 00:00: 00 04-25 23:59 :00 No [id number] 1 tablet DAILY 1 tablet DAILY (route: oral) Med Classific ation: Hematolog ical Agents atorvastati n 80 mg tablet 3- 00:00: 00 04-25 23:59 :00 No [id number] 1 tablet BEDTIME 1 tablet BEDTIME (route: oral) Med Classific ation: Cardiovas cular Therapy Agents carvedilol 6.25 mg tablet 11-12 00:00: 00 03-01 23:59 :00 No [id number] 1 tablet 2 TIMES DAILY 1 tablet 2 TIMES DAILY (route: oral) Med Classific ation: Cardiovas cular Therapy Agents finasteride 5 mg tablet 11-12 00:00: 00 08-01 23:59 :00 No [id number] 1 tablet DAILY 1 tablet DAILY (route: oral) Med Classific ation: Genitouri nary Therapy Flomax 0.4 mg capsule 11-12 00:00: 00 08-01 23:59 :00 No [id number] 1 capsule DAILY 1 capsule DAILY (route: oral) Med Classific ation: Genitouri nary Therapy gabapentin 400 mg capsule 11-12 00:00: 00 02-01 23:59 :00 No [id number] 1 capsule 2 TIMES DAILY 1 capsule 2 TIMES DAILY (route: oral) Med Classific ation: Central Nervous System Agents iron 325 mg (65 mg iron) tablet 11-12 00:00: 00 08-01 23:59 :00 No [id number] 1 tablet DAILY 1 tablet DAILY (route: oral) Med Classific ation: Electroly te Balance-N utritiona l Products pantoprazol e 40 mg tablet,shayna yed release 11-12 00:00: 00 08-01 23:59 :00 No [id number] 1 tablet DAILY 1 tablet DAILY (route: oral) Med Classific ation: Gastroint estinal Therapy Agents spironolact one 50 mg tablet 11-12 00:00: 00 02-01 23:59 :00 No [id number] 1 tablet DAILY 1 tablet DAILY (route: oral) Med Classific ation: Cardiovas cular Therapy Agents Trulicity 0.75 mg/0.5 mL subcutaneou s pen injector 11-12 00:00: 00 08-01 23:59 :00 No [id number] 0.5 mL WEEKLY 0.5 mL WEEKLY (route: subcutaneo us) Med Classific ation: Endocrine Vitamin B-12 500 mcg tablet 11-12 00:00: 00 02-01 00:00 :00 No [id number] 2 tablet BEDTIME 2 tablet BEDTIME (route: oral) Med Classific ation: Electroly te Balance-N utritiona l Products alprazolam 0.5 mg tablet 02-08 00:00: 00 04-25 23:59 :00 No [id number] 1 tablet 2 TIMES DAILY 1 tablet 2 TIMES DAILY (route: oral) Med Classific ation: Central Nervous System Agents bumetanide 1 mg tablet 02-01 00:00: 00 02-17 23:59 :00 No [id number] 1 mg DAILY 1 mg DAILY (route: oral) Med Classific ation: Cardiovas cular Therapy Agents ciprofloxac in 500 mg tablet 02-01 00:00: 00 02-02 23:59 :00 No [id number] 1 tablet DAILY 1 tablet DAILY (route: oral) Med Classific ation: Anti-Infe ctive Agents cyanocobala min (vit B-12) 500 mcg tablet 02-01 00:00: 00 08-01 23:59 :00 No [id number] 2 tablet BEDTIME 2 tablet BEDTIME (route: oral) Med Classific ation: Electroly te Balance-N utritiona l Products gabapentin 400 mg capsule 02-08 00:00: 00 04-25 23:59 :00 No [id number] 1 capsule 2 TIMES DAILY 1 capsule 2 TIMES DAILY (route: oral) Med Classific ation: Central Nervous System Agents lactulose 20 gram/30 mL oral solution 02-01 00:00: 00 04-25 23:59 :00 No [id number] 45 mL 3 TIMES DAILY 45 mL 3 TIMES DAILY (route: oral) Med Classific ation: Gastroint estinal Therapy Agents Tresiba FlexTouch U-100 insulin 100 unit/mL (3 mL) subcutaneou s pen 02-01 00:00: 00 08-01 23:59 :00 No [id number] 6 unit BEDTIME 6 unit BEDTIME (route: subcutaneo us) Med Classific ation: Endocrine bumetanide 1 mg tablet 02-17 00:00: 00 02-21 23:59 :00 No [id number] 2 tablet DAILY 2 tablet DAILY (route: oral) Med Classific ation: Cardiovas cular Therapy Agents bumetanide 1 mg tablet 02-17 00:00: 00 03-01 23:59 :00 No [id number] 1 tablet 2 TIMES DAILY 1 tablet 2 TIMES DAILY (route: oral) Med Classific ation: Cardiovas cular Therapy Agents spironolact one 25 mg tablet 03-01 00:00: 00 04-25 00:00 :00 No [id number] 2 tablet DAILY 2 tablet DAILY (route: oral) Med Classific ation: Cardiovas cular Therapy Agents torsemide 20 mg tablet 03-01 00:00: 00 04-25 00:00 :00 No [id number] 2 tablet DAILY 2 tablet DAILY (route: oral) Med Classific ation: Cardiovas cular Therapy Agents midodrine 10 mg tablet 03-01 00:00: 00 08-01 23:59 :00 No [id number] 1 tablet DIRECTED 1 tablet DIRECTED (route: oral) Med Classific ation: Cardiovas cular Therapy Agents Humulin R Regular U-100 Insulin 100 unit/mL injection solution 03-21 00:00: 00 04-25 00:00 :00 No [id number] 20 unit 3 TIMES DAILY 20 unit 3 TIMES DAILY (route: injection) Med Classific ation: Endocrine Basaglar KwikPen U-100 Insulin 100 unit/mL (3 mL) [facility] 04-25 00:00: 00 08-01 23:59 :00 No [id number] 1 unit 3 TIMES DAILY 1 unit 3 TIMES DAILY (route: subcutaneo us) Med Classific ation: Endocrine bumetanide 1 mg tablet 04-25 00:00: 00 08-01 23:59 :00 No [id number] 1 tablet DAILY 1 tablet DAILY (route: oral) Med Classific ation: Cardiovas cular Therapy Agents spironolact one 25 mg tablet 04-25 00:00: 00 08-01 23:59 :00 No [id number] 1 tablet DAILY 1 tablet DAILY (route: oral) Med Classific ation: Cardiovas cular Therapy Agents atorvastati n 80 mg tablet 04-26 00:00: 00 08-01 23:59 :00 No [id number] 0.5 tablet BEDTIME 0.5 tablet BEDTIME (route: oral) Med Classific ation: Cardiovas cular Therapy Agents carvedilol 6.25 mg tablet 04-26 00:00: 00 08-01 23:59 :00 No [id number] 1 tablet 2 TIMES DAILY 1 tablet 2 TIMES DAILY (route: oral) Med Classific ation: Cardiovas cular Therapy Agents alprazolam 0.5 mg tablet 04-26 00:00: 00 08-01 23:59 :00 No [id number] 1 tablet 2 TIMES DAILY 1 tablet 2 TIMES DAILY (route: oral) Med Classific ation: Central Nervous System Agents gabapentin 300 mg capsule 04-26 00:00: 00 08-01 23:59 :00 No [id number] 1 capsule 2 TIMES DAILY 1 capsule 2 TIMES DAILY (route: oral) Med Classific ation: Central Nervous System Agents cyanocobala min (vit B-12) 500 mcg tablet 04-26 00:00: 00 08-01 23:59 :00 No [id number] 2 tablet BEDTIME 2 tablet BEDTIME (route: oral) Med Classific ation: Electroly te Balance-N utritiona l Products lactulose 10 gram/15 mL oral solution 04-26 00:00: 00 08-01 23:59 :00 No [id number] 30 mL 2 TIMES DAILY 30 mL [...] CARE WILL BE ESTABLISHED THAT MEETS PATIENT'S FDC NEEDS AND INCLUDES PATIENT GOAL FOR HOME [...] Date/Time Encounter Type Admission Type Attending [facility] Care Facility Care Department Encounter ID Discharge Date Discharge Status Discharge Condition Discharge Reason Percent Goals Met 2023-11-13 00:00:00 2024-05-10 00:00:00 [facility] [id number] 2024-05-10 00:00:00 DISCHARGED /TRANSFERR ED TO A [facility] FOR INPATIENT CARE REMAINS INPATIENT AT TIME OF DISCHARGE REMAINS IN INPATIENT FACILITY AT END OF CERT PERIOD 75.76
--- OUTSIDE RECORDS SUMMARY | 2024-08-24 12:37 | XMS_ITS | Clinical Summary ---
Author Organization Unknown Care Team Providers Care Cabinet Professional Name Role Phone RYAN TAPIA, LEI Unavailable Unavailable JOSE THORNE, GRETA Unavailable Unavailable Payers Payer Name Policy Type Policy Number Effective Date Expira tion Date MEDICARE.NGS.[facility] [id number] Problems Condition Name Condition Details Condition Category [...] 02-08 00:00: 00 ATHSCL HEART DISEASE OF [place] CORONARY ARTERY W/O ANG PCTRS Active 09-14 [...] MANAGEMENT OF VAD Active 02-08 00:00: 00 [facility] (CURRENT) USE OF INSULIN Active 09-14 00:00: 00 [facility] (CRNT) USE INJECTABLE NON-INSULIN ANTIDIABETIC DRUGS Active 09-14 00:00: 00 [facility] (CURRENT) USE OF ORAL 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 DRUGS Active 09-14 00:00: 00 [facility] (CURRENT) USE OF ANTITHROMBOT ICS/ANTIPLAT ELETS Active [...] 01-14 00:00: 00 02-08 23:59 :00 No [id number] ANXIETY 1 tablet 2 TIMES DAILY 1 tablet 2 TIMES DAILY (route: oral) Med Classific ation: Central Nervous System Agents atorvastati n 80 mg tablet 01-14 00:00: 00 Yes [id number] CHOLESTEROL 1 tablet DAILY 1 tablet DAILY (route: oral) Med Classific ation: Cardiovas cular Therapy Agents bethanechol chloride 25 mg tablet 01-14 00:00: 00 Yes [id number] BLADDER 1 tablet 2 TIMES DAILY 1 tablet 2 TIMES DAILY (route: oral) Med Classific ation: Genitouri nary Therapy Farxiga 10 mg tablet 01-14 00:00: 00 Yes [id number] DM2 1 tablet DAILY 1 tablet DAILY (route: oral) Med Classific ation: Endocrine finasteride 5 mg tablet 01-14 00:00: 00 Yes [id number] BPH 1 tablet DAILY 1 tablet DAILY (route: oral) Med Classific ation: Genitouri nary Therapy gabapentin 400 mg capsule 01-14 00:00: 00 Yes [id number] NERVE PAIN 1 capsule 3 TIMES DAILY 1 capsule 3 TIMES DAILY (route: oral) Med Classific ation: Central Nervous System Agents insulin aspar prot-insuli n aspart 100 unit[facility]mL (70-30[facility] 01-14 00:00: 00 01-16 16:23 :30.0 57 No [id number] DM2 2-25 In unit 3 TIMES DAILY 2-25 In unit 3 TIMES DAILY (route: subcutaneo us) Med Classific ation: Endocrine iron 325 mg (65 mg iron) tablet 01-14 00:00: 00 Yes [id number] SUPPLEMENT 1 tablet DAILY 1 tablet DAILY (route: oral) Med Classific ation: Electroly te Balance-N utritiona l Products mecobalamin (vitamin B12) 1,000 mcg chewable tablet 01-14 00:00: 00 Yes [id number] SUPPLEMENT 1 tablet DAILY 1 tablet DAILY (route: oral) Med Classific ation: Electroly te Balance-N utritiona l Products metoprolol succinate ER 100 mg tablet,exte nded release 24 hr 01-14 00:00: 00 02-08 23:59 :00 No [id number] HTN 1 tablet DAILY 1 tablet DAILY (route: oral) Med Classific ation: Cardiovas cular Therapy Agents omeprazole 20 mg capsule,del ayed release 01-14 00:00: 00 02-08 23:59 :00 No [id number] GERD 1 capsule 2 TIMES DAILY 1 capsule 2 TIMES DAILY (route: oral) Med Classific ation: Gastroint estinal Therapy Agents Plavix 75 mg tablet 01-14 00:00: 00 Yes [id number] CLOTING 1 tablet DAILY 1 tablet DAILY (route: oral) Med Classific ation: Hematolog ical Agents tamsulosin 0.4 mg capsule 01-14 00:00: 00 Yes [id number] BPH 1 capsule DAILY 1 capsule DAILY (route: oral) Med Classific ation: Genitouri nary Therapy torsemide 20 mg tablet 01-14 00:00: 00 02-08 23:59 :00 No [id number] EDEMA 1 tablet DAILY 1 tablet DAILY (route: oral) Med Classific ation: Cardiovas cular Therapy Agents tramadol 50 mg tablet 01-14 00:00: 00 Yes [id number] PAIN 0.5 tablet EVERY 6 HOURS 0.5 tablet EVERY 6 HOURS (route: oral) Med Classific ation: Analgesic , Anti-infl ammatory or Antipyret ic Tresiba FlexTouch U-100 insulin 100 unit/mL (3 mL) subcutaneou s pen 01-14 00:00: 00 02-08 23:59 :00 No [id number] DM2 64 In unit DAILY 64 In unit DAILY (route: subcutaneo us) Med Classific ation: Endocrine Trulicity 0.75 mg/0.5 mL subcutaneou s pen injector 01-14 00:00: 00 Yes [id number] DM2 0.5 mL WEEKLY 0.5 mL WEEKLY (route: subcutaneo us) Med Classific ation: Endocrine Zetia 10 mg tablet 01-14 00:00: 00 Yes [id number] CHOLESTEROL 1 tablet DAILY 1 tablet DAILY (route: oral) Med Classific ation: Cardiovas cular Therapy Agents ceftriaxone 1 gram intravenous solution 02-08 00:00: 00 03-08 23:59 :00 No [id number] infection 2 gram DAILY 2 gram DAILY (route: intravenou s) Med Classific ation: Anti-Infe ctive Agents sodium chloride 0.9 % intravenous solution 02-08 00:00: 00 Yes [id number] flush 10 mL DIRECTED 10 mL DIRECTED (route: intravenou s) Med Classific ation: Electroly te Balance-N utritiona l Products heparin, porcine (PF) 10 unit/mL intravenous syringe 02-08 00:00: 00 Yes [id number] flush 5 mL DIRECTED 5 mL DIRECTED (route: intravenou s) Med Classific ation: Hematolog ical Agents carvedilol 6.25 mg tablet 02-08 00:00: 00 Yes [id number] heart 1 tablet 2 TIMES DAILY 1 tablet 2 TIMES DAILY (route: oral) Med Classific ation: Cardiovas cular Therapy Agents Lasix 40 mg tablet 02-08 00:00: 00 Yes [id number] fluid 1 tablet 2 TIMES DAILY 1 tablet 2 TIMES DAILY (route: oral) Med Classific ation: Cardiovas cular Therapy Agents Tresiba U-100 Insulin 100 unit/mL subcutaneou s solution 02-08 00:00: 00 Yes [id number] blood sugar 10 unit BEDTIME 10 unit BEDTIME (route: subcutaneo us) Med Classific ation: Endocrine pantoprazol e 40 mg tablet,shayna yed release 02-08 00:00: 00 Yes [id number] gerd 1 tablet DAILY 1 tablet DAILY (route: oral) Med Classific ation: Gastroint estinal Therapy Agents Aldactone 100 mg tablet 02-08 00:00: 00 Yes [id number] BP 1 tablet DAILY 1 tablet DAILY (route: oral) Med Classific ation: Cardiovas cular Therapy Agents aspirin 81 mg tablet,shayna yed release 02-08 00:00: 00 Yes [id number] ANTICOAGULA NT 1 tablet DAILY 1 tablet DAILY (route: oral) Med Classific ation: Hematolog ical Agents ceftriaxone 2 gram intravenous solution 02-08 00:00: 00 03-08 23:59 :00 No [id number] CERVICAL OSTEOMYELIT IS 2 g DAILY 2 g DAILY (route: intravenou s) Med Classific ation: Anti-Infe ctive Agents Coreg 6.25 mg tablet 02-08 00:00: 00 Yes [id number] BP 1 tablet 2 TIMES DAILY 1 tablet 2 TIMES DAILY (route: oral) Med Classific ation: Cardiovas cular Therapy Agents lactulose 10 gram/15 mL (15 mL) oral solution 02-08 00:00: 00 Yes [id number] LAXATIVE 15 mL NEEDED 15 mL NEEDED (route: oral) Med Classific ation: Gastroint estinal Therapy Agents Lasix 40 mg tablet 02-08 00:00: 00 Yes [id number] DIURETIC 1 tablet DAILY 1 tablet DAILY (route: oral) Med Classific ation: Cardiovas cular Therapy Agents midodrine 10 mg tablet 02-08 00:00: 00 Yes [id number] BP 1 tablet 3 TIMES DAILY 1 tablet 3 TIMES DAILY (route: oral) Med Classific ation: Cardiovas cular Therapy Agents Novolog FlexPen U-100 Insulin aspart 100 unit/mL (3 mL) subcutaneou s 02-08 00:00: 00 Yes [id number] DM2 Per instruc tions BEFORE MEALS Per instructio ns BEFORE MEALS (route: subcutaneo us) Med Classific ation: Endocrine pantoprazol e 40 mg tablet,shayna yed release 02-08 00:00: 00 Yes [id number] REFLUX 1 tablet DAILY 1 tablet DAILY (route: oral) Med Classific ation: Gastroint estinal Therapy Agents Tresiba FlexTouch U-100 insulin 100 unit/mL (3 mL) subcutaneou s pen 02-08 00:00: 00 Yes [id number] DM2 10 unit BEDTIME 10 unit BEDTIME [...] PATIENT REPORTED WEIGHT AND NOTIFY CM / CONSIGNEE FOR MD NOTIFICATION FOR SIGNS AND SYMPTOMS [...] PATIENT REPORTED WEIGHT AND NOTIFY CM / CONSIGNEE FOR MD NOTIFICATION FOR SIGNS AND SYMPTOMS [...] End Date/Time Encounter Type Admission Type Attending [facility] Care Department Encounter ID Discharge Date Discharge Status Discharge Condition Discharge Reason Percent Goals Met 2023-01-14 00:00:00 2023-03-12 00:00:00 Outpatient GRETA DELGADO [facility] [id number] 2023-03-12 00:00:00 DISCHARGE TO HOME OR SELF CARE INDEPENDEN T IN THE [facility] OR [facility]- GOALS MET 100.00
== END 2024-08-22 07:18 | disposition home or self-care (01) ==
LOC: HO.LHD 07:17
PROVIDERS: Visit Provider Internal Medicine
DX: D64.9 Anemia, unspecified (principal)
CPT/HCPCS: 36415; 82728; 85025

== ENCOUNTER 2024-08-24 12:36 | Outpatient (AMB) | payer MEDICARE, SELFPAY ==
[2024-08-24 13:02] VITALS: BP 102/40; PULSE 72; O2SAT 97; BMI 25.8
--- NOTE | 2024-08-24 13:02 | MHC.PC.OV ---
Vital Signs 08/24/24 13:02 Height 5 ft 9 in Weight 175 lb BMI 25.8 BP 102/40 L Blood Pressure Location Lt brachial Position Sitting Pulse 72 Pulse Source Pulse Oximeter Pulse Oximetry (%) 97 Oxygen Delivery Method Room Air Intake Visit Reasons: [facility] 08/18 Rn Pacu Required: No Allergies KARL Inhibitors Allergy (Severe, Verified 08/24/24 13:10) Angioedema dextran 40 [DEXTRAN 40] Allergy (Intermediate, Verified 08/24/24 13:10) tachycardia latex [LATEX] Allergy (Mild, Verified 08/24/24 13:10) BLISTERS lisinopril [From Zestril] Allergy (Mild, Verified 08/24/24 13:10) Unknown Iodinated Contrast Media [CONTRAST,IV] Allergy (Unknown, Verified 08/24/24 13:10) UNKNOWN Medication List - Last Reconciled 08/24/24 by Roberto Carlos Cisneros PA-C alprazolam 0.5 mg PO BID PRN 30 days atorvastatin 40 mg (1/2 x 80 mg) PO BEDTIME blood pressure test kit-large As directed blood sugar diagnostic (Prodigy No Coding strips) Test 3 times a day blood sugar diagnostic (FreeStyle Test strips) three times per day blood-glucose meter (FreeStyle Lite Meter kit) As directed blood-glucose meter (Prodigy Pocket Meter kit) Testing three times per day bumetanide 2 mg PO DAILY 30 days carvedilol 6.25 mg PO BID 30 days cyanocobalamin (vitamin B-12) 1,000 mcg (2 x 500 mcg) PO BEDTIME dapagliflozin propanediol (Farxiga) 10 mg PO DAILY 30 days diclofenac sodium 1% 2 grams topical QID dulaglutide (Trulicity) 0.75 mg (0.5 mL) subcut MO ezetimibe (Zetia) 10 mg PO DAILY ferrous sulfate 325 mg PO DAILY finasteride (Proscar) 5 mg PO DAILY 90 days flash glucose scanning reader (Panorama9Style Marleni 14 Day [place]) As directed flash glucose sensor (FreeStyle Marleni 14 Day Sensor kit) As directed gabapentin 300 mg PO BID 30 days insulin degludec (Tresiba FlexTouch U-100 insulin) 6 units subcut BEDTIME insulin lispro (Admelog SoloStar U-100 Insulin lispro) 1 sliding scale dose subcut TID 30 days lactulose 30 mL PO BID lancets (FreeStyle Lancets) As directed three times per day midodrine 10 mg PO TID 30 days pantoprazole 40 mg PO DAILY pen needle, diabetic (BD Gifty 2nd Gen Pen Needle) 4 times a day pen needle, diabetic (BD Ultra-Fine Gifty Pen Needle) As directed rifaximin 550 mg PO BID 90 days spironolactone 25 mg PO DAILY 30 days tamsulosin 0.4 mg PO DAILY 90 days Tobacco use date assessed: 10/21/23 Dental Screening Dental Screen Date: 10/21/23 [facility] 08/18 HPI Details Patient is an 79 year male here today for hospital discharge follow-up.. Patient recently admitted to [facility] for acute encephalopathy. He was found to have elevated ammonia levels and an EMMANUEL. He was admitted for management of hepatic encephalopathy and was given lactulose in made rather rapid recovery. Has been to status recovered to normal. He was prescribed rifaximin to try to help prevent rehospitalization though having trouble getting rifaximin covered by insurance. We have noticed he has lost a significant amount of weight since his hospitalization. He seems to have diuresed well. Lower extremity swelling is much improved and abdominal distention much improved. PLAN: Will try to set him back up with supervisor photocomposition for monitoring as well as he seems to have a failing liver. For now will give him the ability to check his ammonia levels monthly. He promises to continue on lactulose twice a day Laboratory Tests 01/25/24 01/27/24 01/30/24 11:33 06:15 08:16 RBC Hgb 7.8 L 9.5 L PT INR POC Glucose Random Glucose Ammonia 83 H 76 H 02/01/24 02/01/24 04/14/24 05:47 10:58 16:26 RBC Hgb 9.3 L PT INR POC Glucose 253 H Random Glucose Ammonia 75 H 93 H 04/16/24 04/19/24 05/02/24 09:26 05:00 09:00 RBC 3.15 L Hgb 8.6 L PT 14.5 H INR 1.2 H POC Glucose Random Glucose 137 H Ammonia 62 H 05/04/24 07/11/24 07/18/24 16:15 10:00 11:20 RBC 2.67 L 3.02 L Hgb 7.5 L 8.4 L PT INR POC Glucose 373 H* Random Glucose Ammonia 08/09/24 08/16/24 08/18/24 13:24 22:47 12:49 RBC Hgb PT INR POC Glucose Random Glucose Ammonia 96 H 72 H 60 H TCM TCM Information Date of Discharge 08/18/24 Discharged From [facility] Interactive Contact Date (Reference documentation from this date) 08/23/24 [facility] Medical History CKD stage 4 due to type 2 diabetes mellitus Heart failure Cirrhosis of liver without ascites Cognitive impairment DMII (diabetes mellitus, type 2) Hyperglycemia Symptomatic anemia Difficulty walking Anemia 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 Streptococcal bacteremia Fracture of left humerus History of prostate cancer Acute lower gastrointestinal bleeding COVID-19 vaccine series completed Hypertension Dyslipidemia Diabetic nephropathy associated with type 2 diabetes mellitus Diabetic 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 associated with type 2 diabetes mellitus half-way (current) use of insulin Diabetes type 2, uncontrolled Varices of esophagus determined by endoscopy Esophageal varices without bleeding KOEHLER (dyspnea on exertion) Chronic fatigue Iron deficiency anemia CAD (coronary artery disease) ANUJA on CPAP Prostate cancer Spinal stenosis On beta kayy at home IBS (irritable colon syndrome) Aortic stenosis HTN (hypertension) Polyneuropathy GERD (gastroesophageal reflux disease) Surgical History S/P infectious endocarditis H/O cataract extraction Hx of endoscopy History of colonoscopy Hx of esophagogastroduodenoscopy Hx of colonoscopy History of surgery History of transurethral resection of prostate History of surgery History of heart artery stent Family History Father CVD (cardiovascular disease) Past heart attack Mother CVD (cardiovascular disease) Brain cancer Heart problem Daughter Breast cancer Sister Breast cancer Son Alive and well Family/Other Myocardial infarction Liver cancer Social History Household Members: Spouse Household Members Other:: Myesha Housing: House Are you a primary palliative care nurse practitioner to a significant other at home: No Do you presently have visiting nurse or other home services: Yes Alcohol intake: never Patient Tobacco Use Status: Never used Tobacco e-Cigarette/Vaping Use: Never Used Second Hand Smoke Exposure: No Advance Directives Date on File: 08/31/23 service: No Current occupational status: retired Cognitive needs: No Hearing needs: No Vision needs: Yes Questionnaire Thrive Questionnaire Date Thrive assessed: 08/17/24 GISELA-7 AMB Questionnaire GISELA-7 Date GISELA - 7 assessed: 02/10/24 Source: Developed by Drs. Andrew Miranda, Cristiane Zabala, Jose Jenkins and colleagues, with an educational tanya from [employer]. Review of Systems Const Denies headache(s) Eyes Denies loss of vision ENT Denies vertigo, Denies dizziness, Denies headache(s) and Denies sore throat Card Denies chest pain, Denies leg edema and Denies lightheadedness Resp Denies cough, Denies hemoptysis and Denies wheezing GI Denies abdominal pain, Denies melena, Denies constipation, Denies diarrhea and Denies vomiting Denies dysuria, Denies urinary frequency and Denies urinary urgency Musc Denies arthralgias, Denies joint swelling, Denies numbness and Denies tingling Neuro Denies Abnormal speech present, Denies behavioral changes, Denies vertigo, Denies dizziness, Denies headache(s), Denies loss of vision, Denies memory loss, Denies numbness and Denies tingling Psych Denies anxiety, Denies behavioral changes, Denies depression, Denies memory loss and Denies panic attacks Anmol/Lymph Denies easy bleeding and Denies easy bruising Aller/Immun Denies wheezing Physical exam (Primary Care) Vital Signs: Last Vital Signs Pulse 72 08/24/24 13:02 BP 102/40 L 08/24/24 13:02 Pulse Ox 97 08/24/24 13:02 Oxygen Delivery Method Room Air 08/24/24 13:02 BMI result Body Mass Index 25.8 Tobacco/Smoking Status: Tobacco use Status Tobacco use date assessed 10/21/23 08/24/24 13:03 Patient Tobacco Use Status Never used Tobacco 08/24/24 13:03 e-Cigarette/Vaping Use Never Used 08/24/24 13:03 Thrive Assessment: Date of Thrive Assessment Date Thrive assessed 08/17/24 08/24/24 13:03 Const General: healthy appearing, no acute distress, alert and awake Nutritional Appearance: well nourished Orientation/consciousness: oriented to person, oriented to place and oriented to time HENMT Ears: TM's normal bilaterally General nose exam: Normal nasal mucous membranes and turbinates present Eyes Conjunctivae: conjunctivae normal Sclerae: sclerae normal Pupils: Equal, round and reactive pupils present Neck Neck: Yes no lymphadenopathy and Yes no JVD Thyroid: Thyroid normal Carotids: no bruits Resp Effort & Inspection: normal respiratory effort and not tachypneic Auscultation: no crackles, no rales, no rhonchi and no wheezes Cardio Rate: regular rate Rhythm: regular rhythm Heart sounds: no murmurs and normal S1 and S2 GI Other: IMPROVED ABDOMINAL DISTENTION Palpation (GI): Soft to palpation, nontender, no hepatomegaly and no splenomegaly Auscultation: normal bowel sounds Skin General skin exam: no rashes or lesions noted and dry skin Neuro General: oriented to person, oriented to place and oriented to time Cranial nerves: Yes Equal, round and reactive pupils present Speech: No Abnormal speech present Gait exam (Neuro): Normal gait present Motor exam (neuro): no tremor noted Extrem Other: IMPROVED LOWER EXTREMITY EDEMA Right upper extremity: full ROM Left upper extremity: full ROM Right lower extremity: full ROM and edema Left lower extremity: full ROM and edema Psych Mental Status: mental status grossly normal Speech and movement: Normal speech and movement present Affect: normal affect Attitude: cooperative Thought process: Normal thought process present Coding Level of Care Code TCM Mod MDM <= 7 Days Diagnoses Hospital discharge follow-up Z09 Hepatic encephalopathy K76.82 Assessment & Plan Assessment & Plan (1) Hospital discharge follow-up: Code(s): Z09 - Encounter for follow-up examination after completed treatment for conditions other than malignant neoplasm Category: Medical Plan: As per HPI (2) Hepatic encephalopathy: Code(s): K76.82 - Hepatic encephalopathy Category: Medical Plan: As per HPI patient promises to continue lactulose twice a day. He has been mixing lactulose and cranberry juice which has been more effective for him. Will continue on current dose of Bumex. Will start rifaximin to try to reduce re hospitalization. Will try to set him back up with supervisor photocomposition/shipping associate for continued workup and monitoring as he does seem to have a feeling liver. Will give him the opportunity to check his ammonia levels monthly does labs ordered Orders: Orders Ammonia 08/24/24 K76.82 - Hepatic encephalopathy Ammonia 08/24/24 K76.82 - Hepatic encephalopathy Ammonia 08/24/24 K76.82 - Hepatic encephalopathy Ammonia 08/24/24 K76.82 - Hepatic encephalopathy Ammonia 08/24/24 K76.82 - Hepatic encephalopathy Ammonia 08/24/24 K76.82 - Hepatic encephalopathy Ammonia 08/24/24 K76.82 - Hepatic encephalopathy Referrals Gastroenterology Referral K76.82 - Hepatic encephalopathy
--- OUTSIDE RECORDS SUMMARY | 2024-08-25 02:11 | XMS_ITS | Clinical Summary ---
Author Organization Unknown Care Team Providers [facility] Name Role Phone RYAN TAPIA, LEI Unavailable Unavailable JOSE THORNE, GRETA Unavailable Unavailable Payers Payer Name Policy Type Policy Number Effective Date Expira tion Date MEDICARE.NGS.PDGM [id number] Problems Condition Name Condition Details Condition Category [...] 02-08 00:00: 00 ATHSCL HEART DISEASE OF [place] CORONARY ARTERY W/O ANG PCTRS Active 09-14 [...] MANAGEMENT OF VAD Active 02-08 00:00: 00 MCC (CURRENT) USE OF INSULIN Active 09-14 00:00: 00 LNG TRM (CRNT) USE INJECTABLE NON-INSULIN ANTIDIABETIC DRUGS Active 09-14 00:00: 00 MCC (CURRENT) USE OF ORAL 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 DRUGS Active 09-14 00:00: 00 MCC (CURRENT) USE OF ANTITHROMBOT ICS/ANTIPLAT ELETS Active [...] 01-14 00:00: 00 02-08 23:59 :00 No [id number] ANXIETY 1 tablet 2 TIMES DAILY 1 tablet 2 TIMES DAILY (route: oral) Med Classific ation: Central Nervous System Agents atorvastati n 80 mg tablet 01-14 00:00: 00 Yes [id number] CHOLESTEROL 1 tablet DAILY 1 tablet DAILY (route: oral) Med Classific ation: Cardiovas cular Therapy Agents bethanechol chloride 25 mg tablet 01-14 00:00: 00 Yes [id number] BLADDER 1 tablet 2 TIMES DAILY 1 tablet 2 TIMES DAILY (route: oral) Med Classific ation: Genitouri nary Therapy Farxiga 10 mg tablet 01-14 00:00: 00 Yes [id number] DM2 1 tablet DAILY 1 tablet DAILY (route: oral) Med Classific ation: Endocrine finasteride 5 mg tablet 01-14 00:00: 00 Yes [id number] BPH 1 tablet DAILY 1 tablet DAILY (route: oral) Med Classific ation: Genitouri nary Therapy gabapentin 400 mg capsule 01-14 00:00: 00 Yes [id number] NERVE PAIN 1 capsule 3 TIMES DAILY 1 capsule 3 TIMES DAILY (route: oral) Med Classific ation: Central Nervous System Agents insulin aspar prot-insuli n aspart 100 unit/mL (70-30) [facility] 01-14 00:00: 00 01-16 16:23 :30.0 57 No [id number] DM2 2-25 In unit 3 TIMES DAILY 2-25 In unit 3 TIMES DAILY (route: subcutaneo us) Med Classific ation: Endocrine iron 325 mg (65 mg iron) tablet 01-14 00:00: 00 Yes [id number] SUPPLEMENT 1 tablet DAILY 1 tablet DAILY (route: oral) Med Classific ation: Electroly te Balance-N utritiona l Products mecobalamin (vitamin B12) 1,000 mcg chewable tablet 01-14 00:00: 00 Yes [id number] SUPPLEMENT 1 tablet DAILY 1 tablet DAILY (route: oral) Med Classific ation: Electroly te Balance-N utritiona l Products metoprolol succinate ER 100 mg tablet,exte nded release 24 hr 01-14 00:00: 00 02-08 23:59 :00 No [id number] HTN 1 tablet DAILY 1 tablet DAILY (route: oral) Med Classific ation: Cardiovas cular Therapy Agents omeprazole 20 mg capsule,del ayed release 01-14 00:00: 00 02-08 23:59 :00 No [id number] GERD 1 capsule 2 TIMES DAILY 1 capsule 2 TIMES DAILY (route: oral) Med Classific ation: Gastroint estinal Therapy Agents Plavix 75 mg tablet 01-14 00:00: 00 Yes [id number] CLOTING 1 tablet DAILY 1 tablet DAILY (route: oral) Med Classific ation: Hematolog ical Agents tamsulosin 0.4 mg capsule 01-14 00:00: 00 Yes [id number] BPH 1 capsule DAILY 1 capsule DAILY (route: oral) Med Classific ation: Genitouri nary Therapy torsemide 20 mg tablet 01-14 00:00: 00 02-08 23:59 :00 No [id number] EDEMA 1 tablet DAILY 1 tablet DAILY (route: oral) Med Classific ation: Cardiovas cular Therapy Agents tramadol 50 mg tablet 01-14 00:00: 00 Yes [id number] PAIN 0.5 tablet EVERY 6 HOURS 0.5 tablet EVERY 6 HOURS (route: oral) Med Classific ation: Analgesic , Anti-infl ammatory or Antipyret ic Tresiba FlexTouch U-100 insulin 100 unit/mL (3 mL) subcutaneou s pen 01-14 00:00: 00 02-08 23:59 :00 No [id number] DM2 64 In unit DAILY 64 In unit DAILY (route: subcutaneo us) Med Classific ation: Endocrine Trulicity 0.75 mg/0.5 mL subcutaneou s pen injector 01-14 00:00: 00 Yes [id number] DM2 0.5 mL WEEKLY 0.5 mL WEEKLY (route: subcutaneo us) Med Classific ation: Endocrine Zetia 10 mg tablet 01-14 00:00: 00 Yes [id number] CHOLESTEROL 1 tablet DAILY 1 tablet DAILY (route: oral) Med Classific ation: Cardiovas cular Therapy Agents ceftriaxone 1 gram intravenous solution 02-08 00:00: 00 03-08 23:59 :00 No [id number] infection 2 gram DAILY 2 gram DAILY (route: intravenou s) Med Classific ation: Anti-Infe ctive Agents sodium chloride 0.9 % intravenous solution 02-08 00:00: 00 Yes [id number] flush 10 mL DIRECTED 10 mL DIRECTED (route: intravenou s) Med Classific ation: Electroly te Balance-N utritiona l Products heparin, porcine (PF) 10 unit/mL intravenous syringe 02-08 00:00: 00 Yes [id number] flush 5 mL DIRECTED 5 mL DIRECTED (route: intravenou s) Med Classific ation: Hematolog ical Agents carvedilol 6.25 mg tablet 02-08 00:00: 00 Yes [id number] heart 1 tablet 2 TIMES DAILY 1 tablet 2 TIMES DAILY (route: oral) Med Classific ation: Cardiovas cular Therapy Agents Lasix 40 mg tablet 02-08 00:00: 00 Yes [id number] fluid 1 tablet 2 TIMES DAILY 1 tablet 2 TIMES DAILY (route: oral) Med Classific ation: Cardiovas cular Therapy Agents Tresiba U-100 Insulin 100 unit/mL subcutaneou s solution 02-08 00:00: 00 Yes [id number] blood sugar 10 unit BEDTIME 10 unit BEDTIME (route: subcutaneo us) Med Classific ation: Endocrine pantoprazol e 40 mg tablet,shayna yed release 02-08 00:00: 00 Yes [id number] gerd 1 tablet DAILY 1 tablet DAILY (route: oral) Med Classific ation: Gastroint estinal Therapy Agents Aldactone 100 mg tablet 02-08 00:00: 00 Yes [id number] BP 1 tablet DAILY 1 tablet DAILY (route: oral) Med Classific ation: Cardiovas cular Therapy Agents aspirin 81 mg tablet,shayna yed release 02-08 00:00: 00 Yes [id number] ANTICOAGULA NT 1 tablet DAILY 1 tablet DAILY (route: oral) Med Classific ation: Hematolog ical Agents ceftriaxone 2 gram intravenous solution 02-08 00:00: 00 03-08 23:59 :00 No [id number] CERVICAL OSTEOMYELIT IS 2 g DAILY 2 g DAILY (route: intravenou s) Med Classific ation: Anti-Infe ctive Agents Coreg 6.25 mg tablet 02-08 00:00: 00 Yes [id number] BP 1 tablet 2 TIMES DAILY 1 tablet 2 TIMES DAILY (route: oral) Med Classific ation: Cardiovas cular Therapy Agents lactulose 10 gram/15 mL (15 mL) oral solution 02-08 00:00: 00 Yes [id number] LAXATIVE 15 mL NEEDED 15 mL NEEDED (route: oral) Med Classific ation: Gastroint estinal Therapy Agents Lasix 40 mg tablet 02-08 00:00: 00 Yes [id number] DIURETIC 1 tablet DAILY 1 tablet DAILY (route: oral) Med Classific ation: Cardiovas cular Therapy Agents midodrine 10 mg tablet 02-08 00:00: 00 Yes [id number] BP 1 tablet 3 TIMES DAILY 1 tablet 3 TIMES DAILY (route: oral) Med Classific ation: Cardiovas cular Therapy Agents Novolog FlexPen U-100 Insulin aspart 100 unit/mL (3 mL) subcutaneou s 02-08 00:00: 00 Yes [id number] DM2 Per instruc tions BEFORE MEALS Per instructio ns BEFORE MEALS (route: subcutaneo us) Med Classific ation: Endocrine pantoprazol e 40 mg tablet,shayna yed release 02-08 00:00: 00 Yes [id number] REFLUX 1 tablet DAILY 1 tablet DAILY (route: oral) Med Classific ation: Gastroint estinal Therapy Agents Tresiba FlexTouch U-100 insulin 100 unit/mL (3 mL) subcutaneou s pen 02-08 00:00: 00 Yes [id number] DM2 10 unit BEDTIME 10 unit BEDTIME [...] PATIENT REPORTED WEIGHT AND NOTIFY CM / MANAGER PERIOPERATIVE FOR MD NOTIFICATION FOR SIGNS AND SYMPTOMS [...] PATIENT REPORTED WEIGHT AND NOTIFY CM / MANAGER PERIOPERATIVE FOR MD NOTIFICATION FOR SIGNS AND SYMPTOMS [...] End Date/Time Encounter Type Admission Type Attending [facility] Care Department Encounter ID Discharge Date Discharge Status Discharge Condition Discharge Reason Percent Goals Met 2023-01-14 00:00:00 2023-03-12 00:00:00 Outpatient GRETA DELGADO [facility] [id number] 2023-03-12 00:00:00 DISCHARGE TO HOME OR SELF CARE INDEPENDEN T IN THE [facility] OR [facility]- GOALS MET 100.00
--- OUTSIDE RECORDS SUMMARY | 2024-08-25 02:12 | XMS_ITS | Clinical Summary ---
Author Organization Unknown Care Team Providers Care Financial Report Service Sales Agent Name Role Phone RYAN TAPIA, LEI Unavailable Unavailable JOSE THORNE, GRETA Unavailable Unavailable Payers Payer Name Policy Type Policy Number Effective Date Expira tion Date MEDICARE.NGS.PDGM [id number] Problems Condition Name Condition Details Condition Category [...] 02-08 00:00: 00 ATHSCL HEART DISEASE OF [place] CORONARY ARTERY W/O ANG PCTRS Active 09-14 [...] MANAGEMENT OF VAD Active 02-08 00:00: 00 FPC (CURRENT) USE OF INSULIN Active 09-14 00:00: 00 LNG TRM (CRNT) USE INJECTABLE NON-INSULIN ANTIDIABETIC DRUGS Active 09-14 00:00: 00 FPC (CURRENT) USE OF ORAL 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 DRUGS Active 09-14 00:00: 00 FPC (CURRENT) USE OF ANTITHROMBOT ICS/ANTIPLAT ELETS Active [...] 01-14 00:00: 00 02-08 23:59 :00 No [id number] ANXIETY 1 tablet 2 TIMES DAILY 1 tablet 2 TIMES DAILY (route: oral) Med Classific ation: Central Nervous System Agents atorvastati n 80 mg tablet 01-14 00:00: 00 Yes [id number] CHOLESTEROL 1 tablet DAILY 1 tablet DAILY (route: oral) Med Classific ation: Cardiovas cular Therapy Agents bethanechol chloride 25 mg tablet 01-14 00:00: 00 Yes [id number] BLADDER 1 tablet 2 TIMES DAILY 1 tablet 2 TIMES DAILY (route: oral) Med Classific ation: Genitouri nary Therapy Farxiga 10 mg tablet 01-14 00:00: 00 Yes [id number] DM2 1 tablet DAILY 1 tablet DAILY (route: oral) Med Classific ation: Endocrine finasteride 5 mg tablet 01-14 00:00: 00 Yes [id number] BPH 1 tablet DAILY 1 tablet DAILY (route: oral) Med Classific ation: Genitouri nary Therapy gabapentin 400 mg capsule 01-14 00:00: 00 Yes [id number] NERVE PAIN 1 capsule 3 TIMES DAILY 1 capsule 3 TIMES DAILY (route: oral) Med Classific ation: Central Nervous System Agents insulin aspar prot-insuli n aspart 100 unit/mL (70-30) [facility] s pen 01-14 00:00: 00 01-16 16:23 :30.0 57 No [id number] DM2 2-25 In unit 3 TIMES DAILY 2-25 In unit 3 TIMES DAILY (route: subcutaneo us) Med Classific ation: Endocrine iron 325 mg (65 mg iron) tablet 01-14 00:00: 00 Yes [id number] SUPPLEMENT 1 tablet DAILY 1 tablet DAILY (route: oral) Med Classific ation: Electroly te Balance-N utritiona l Products mecobalamin (vitamin B12) 1,000 mcg chewable tablet 01-14 00:00: 00 Yes [id number] SUPPLEMENT 1 tablet DAILY 1 tablet DAILY (route: oral) Med Classific ation: Electroly te Balance-N utritiona l Products metoprolol succinate ER 100 mg tablet,exte nded release 24 hr 01-14 00:00: 00 02-08 23:59 :00 No [id number] HTN 1 tablet DAILY 1 tablet DAILY (route: oral) Med Classific ation: Cardiovas cular Therapy Agents omeprazole 20 mg capsule,del ayed release 01-14 00:00: 00 02-08 23:59 :00 No [id number] GERD 1 capsule 2 TIMES DAILY 1 capsule 2 TIMES DAILY (route: oral) Med Classific ation: Gastroint estinal Therapy Agents Plavix 75 mg tablet 01-14 00:00: 00 Yes [id number] CLOTING 1 tablet DAILY 1 tablet DAILY (route: oral) Med Classific ation: Hematolog ical Agents tamsulosin 0.4 mg capsule 01-14 00:00: 00 Yes [id number] BPH 1 capsule DAILY 1 capsule DAILY (route: oral) Med Classific ation: Genitouri nary Therapy torsemide 20 mg tablet 01-14 00:00: 00 02-08 23:59 :00 No [id number] EDEMA 1 tablet DAILY 1 tablet DAILY (route: oral) Med Classific ation: Cardiovas cular Therapy Agents tramadol 50 mg tablet 01-14 00:00: 00 Yes [id number] PAIN 0.5 tablet EVERY 6 HOURS 0.5 tablet EVERY 6 HOURS (route: oral) Med Classific ation: Analgesic , Anti-infl ammatory or Antipyret ic Tresiba FlexTouch U-100 insulin 100 unit/mL (3 mL) subcutaneou s pen 01-14 00:00: 00 02-08 23:59 :00 No [id number] DM2 64 In unit DAILY 64 In unit DAILY (route: subcutaneo us) Med Classific ation: Endocrine Trulicity 0.75 mg/0.5 mL subcutaneou s pen injector 01-14 00:00: 00 Yes [id number] DM2 0.5 mL WEEKLY 0.5 mL WEEKLY (route: subcutaneo us) Med Classific ation: Endocrine Zetia 10 mg tablet 01-14 00:00: 00 Yes [id number] CHOLESTEROL 1 tablet DAILY 1 tablet DAILY (route: oral) Med Classific ation: Cardiovas cular Therapy Agents ceftriaxone 1 gram intravenous solution 02-08 00:00: 00 03-08 23:59 :00 No [id number] infection 2 gram DAILY 2 gram DAILY (route: intravenou s) Med Classific ation: Anti-Infe ctive Agents sodium chloride 0.9 % intravenous solution 02-08 00:00: 00 Yes [id number] flush 10 mL DIRECTED 10 mL DIRECTED (route: intravenou s) Med Classific ation: Electroly te Balance-N utritiona l Products heparin, porcine (PF) 10 unit/mL intravenous syringe 02-08 00:00: 00 Yes [id number] flush 5 mL DIRECTED 5 mL DIRECTED (route: intravenou s) Med Classific ation: Hematolog ical Agents carvedilol 6.25 mg tablet 02-08 00:00: 00 Yes [id number] heart 1 tablet 2 TIMES DAILY 1 tablet 2 TIMES DAILY (route: oral) Med Classific ation: Cardiovas cular Therapy Agents Lasix 40 mg tablet 02-08 00:00: 00 Yes [id number] fluid 1 tablet 2 TIMES DAILY 1 tablet 2 TIMES DAILY (route: oral) Med Classific ation: Cardiovas cular Therapy Agents Tresiba U-100 Insulin 100 unit/mL subcutaneou s solution 02-08 00:00: 00 Yes [id number] blood sugar 10 unit BEDTIME 10 unit BEDTIME (route: subcutaneo us) Med Classific ation: Endocrine pantoprazol e 40 mg tablet,shayna yed release 02-08 00:00: 00 Yes [id number] gerd 1 tablet DAILY 1 tablet DAILY (route: oral) Med Classific ation: Gastroint estinal Therapy Agents Aldactone 100 mg tablet 02-08 00:00: 00 Yes [id number] BP 1 tablet DAILY 1 tablet DAILY (route: oral) Med Classific ation: Cardiovas cular Therapy Agents aspirin 81 mg tablet,shayna yed release 02-08 00:00: 00 Yes [id number] ANTICOAGULA NT 1 tablet DAILY 1 tablet DAILY (route: oral) Med Classific ation: Hematolog ical Agents ceftriaxone 2 gram intravenous solution 02-08 00:00: 00 03-08 23:59 :00 No [id number] CERVICAL OSTEOMYELIT IS 2 g DAILY 2 g DAILY (route: intravenou s) Med Classific ation: Anti-Infe ctive Agents Coreg 6.25 mg tablet 02-08 00:00: 00 Yes [id number] BP 1 tablet 2 TIMES DAILY 1 tablet 2 TIMES DAILY (route: oral) Med Classific ation: Cardiovas cular Therapy Agents lactulose 10 gram/15 mL (15 mL) oral solution 02-08 00:00: 00 Yes [id number] LAXATIVE 15 mL NEEDED 15 mL NEEDED (route: oral) Med Classific ation: Gastroint estinal Therapy Agents Lasix 40 mg tablet 02-08 00:00: 00 Yes [id number] DIURETIC 1 tablet DAILY 1 tablet DAILY (route: oral) Med Classific ation: Cardiovas cular Therapy Agents midodrine 10 mg tablet 02-08 00:00: 00 Yes [id number] BP 1 tablet 3 TIMES DAILY 1 tablet 3 TIMES DAILY (route: oral) Med Classific ation: Cardiovas cular Therapy Agents Novolog FlexPen U-100 Insulin aspart 100 unit/mL (3 mL) subcutaneou s 02-08 00:00: 00 Yes [id number] DM2 Per instruc tions BEFORE MEALS Per instructio ns BEFORE MEALS (route: subcutaneo us) Med Classific ation: Endocrine pantoprazol e 40 mg tablet,shayna yed release 02-08 00:00: 00 Yes [id number] REFLUX 1 tablet DAILY 1 tablet DAILY (route: oral) Med Classific ation: Gastroint estinal Therapy Agents Tresiba FlexTouch U-100 insulin 100 unit/mL (3 mL) subcutaneou s pen 02-08 00:00: 00 Yes [id number] DM2 10 unit BEDTIME 10 unit BEDTIME [...] PATIENT REPORTED WEIGHT AND NOTIFY CM / LEATHER GRAINER FOR MD NOTIFICATION FOR SIGNS AND SYMPTOMS [...] PATIENT REPORTED WEIGHT AND NOTIFY CM / LEATHER GRAINER FOR MD NOTIFICATION FOR SIGNS AND SYMPTOMS [...] 2023-01-14 00:00:00 2023-03-12 00:00:00 Outpatient GRETA DELGADO [facility] [id number] 2023-03-12 00:00:00 DISCHARGE TO HOME OR SELF CARE INDEPENDEN T IN [facility] OR [facility]- GOALS MET 100.00
--- OUTSIDE RECORDS SUMMARY | 2024-08-25 02:12 | XMS_ITS | Continuity of Care Document ---
Author Organization [facility] Address [address] [address] Phone Care Team Providers Care Water Softener Service Supervisor Name Role Phone NAMITA Jacobson RD, Shauna Unavailable Unavail able Advance Directives Directive Yes / No Effective Date File Name No Information Encounters Encounter Description Practice Location Reason(s) For Visit Diagnoses Date Provider Providers Copied on Encounter [facility], [address] [address], [place], [place], [id number], [place] tel:[phone] [facility] No Information Indira Villatoro. [address] [place], [address]. tel:[phone] Family History Family Member Type Diagnosis Age At Onset No Information Payers Payer name Insurance type Covered green party ID Authoriza tion(s) No Information Social History [...]
--- OUTSIDE RECORDS SUMMARY | 2024-08-25 02:12 | XMS_ITS | Clinical Summary ---
Author Organization Unknown Care Team Providers Care Assistant To The Director Name Role Phone RYAN TAPIA, LEI Unavailable Unavailable AUSTIN RN, NEYDA Unavailable Unavailable GUZMAN RN, GUILLERMO Unavailable Unavailable NORMA THORNE, RAPHAEL Unavailable Unavailable Payers Payer Name Policy Type Policy Number Effective Date Expira tion Date MEDIC[place] - [place] [id number] [facility] [id number] Problems Condition Name Condition Details Condition Category [...] 11-12 00:00: 00 ATHSCL HEART DISEASE OF [place] CORONARY ARTERY W/O ANG PCTRS Active 11-12 [...] 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 11-12 00:00: 00 RETIREMENT (CURRENT) USE OF ASPIRIN Active 11-12 00:00: 00 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 DRUGS Active 11-12 00:00: 00 RETIREMENT (CURRENT) USE OF INSULIN Active 11-12 00:00: [...] 10-21 00:00: 00 02-01 23:59 :00 No [id number] Per instruc tions AT BEDTIME Per instructio ns AT BEDTIME (route: subcutaneo us) Med Classific ation: Endocrine bethanechol chloride 25 mg tablet 10-18 00:00: 00 04-25 00:00 :00 No [id number] Per instruc tions TWICE DAILY Per instructio ns TWICE DAILY (route: oral) Med Classific ation: Genitouri nary Therapy Farxiga 10 mg tablet 2-04 00:00: 00 08-01 23:59 :00 No [id number] Per instruc tions DAILY Per instructio ns DAILY (route: oral) Med Classific ation: Endocrine ezetimibe 10 mg tablet 1-30 00:00: 00 08-01 23:59 :00 No [id number] Unavailable Per instruc tions DAILY Per instructio ns DAILY (route: oral) Med Classific ation: Cardiovas cular Therapy Agents Novolog FlexPen U-100 Insulin aspart 100 unit/mL (3 mL) subcutane s 1- 00:00: 00 03-21 23:59 :00 No [id number] Per instruc tions 3 TIMES DAILY Per instructio ns 3 TIMES DAILY (route: subcutaneo us) Med Classific ation: Endocrine Basaglar KwikPen U-100 Insulin 100 unit/mL (3 mL[facility] 1-25 00:00: 00 11-12 23:59 :00 No [id number] Unavailable Per instruc tions SUBCUTANEO US ONCE EVERY Per instructio ns SUBCUTANEO US ONCE EVERY (route: subcutaneo us) Med Classific ation: Endocrine alprazolam 0.5 mg tablet 1-22 00:00: 00 02-01 23:59 :00 No [id number] Unavailable Per instruc tions TWICE DAILY NEEDED Per instructio ns TWICE DAILY NEEDED (route: oral) Med Classific ation: Central Nervous System Agents aspirin 81 mg tablet,shayna yed release - 00:00: 00 04-25 23:59 :00 No [id number] 1 tablet DAILY 1 tablet DAILY (route: oral) Med Classific ation: Hematolog ical Agents atorvastati n 80 mg tablet 3- 00:00: 00 04-25 23:59 :00 No [id number] 1 tablet BEDTIME 1 tablet BEDTIME (route: oral) Med Classific ation: Cardiovas cular Therapy Agents carvedilol 6.25 mg tablet 11-12 00:00: 00 03-01 23:59 :00 No [id number] 1 tablet 2 TIMES DAILY 1 tablet 2 TIMES DAILY (route: oral) Med Classific ation: Cardiovas cular Therapy Agents finasteride 5 mg tablet 11-12 00:00: 00 08-01 23:59 :00 No [id number] 1 tablet DAILY 1 tablet DAILY (route: oral) Med Classific ation: Genitouri nary Therapy Flomax 0.4 mg capsule 11-12 00:00: 00 08-01 23:59 :00 No [id number] 1 capsule DAILY 1 capsule DAILY (route: oral) Med Classific ation: Genitouri nary Therapy gabapentin 400 mg capsule 11-12 00:00: 00 02-01 23:59 :00 No [id number] 1 capsule 2 TIMES DAILY 1 capsule 2 TIMES DAILY (route: oral) Med Classific ation: Central Nervous System Agents iron 325 mg (65 mg iron) tablet 11-12 00:00: 00 08-01 23:59 :00 No [id number] 1 tablet DAILY 1 tablet DAILY (route: oral) Med Classific ation: Electroly te Balance-N utritiona l Products pantoprazol e 40 mg tablet,shayna yed release 11-12 00:00: 00 08-01 23:59 :00 No [id number] 1 tablet DAILY 1 tablet DAILY (route: oral) Med Classific ation: Gastroint estinal Therapy Agents spironolact one 50 mg tablet 11-12 00:00: 00 02-01 23:59 :00 No [id number] 1 tablet DAILY 1 tablet DAILY (route: oral) Med Classific ation: Cardiovas cular Therapy Agents Trulicity 0.75 mg/0.5 mL subcutaneou s pen injector 11-12 00:00: 00 08-01 23:59 :00 No [id number] 0.5 mL WEEKLY 0.5 mL WEEKLY (route: subcutaneo us) Med Classific ation: Endocrine Vitamin B-12 500 mcg tablet 11-12 00:00: 00 02-01 00:00 :00 No [id number] 2 tablet BEDTIME 2 tablet BEDTIME (route: oral) Med Classific ation: Electroly te Balance-N utritiona l Products alprazolam 0.5 mg tablet 02-08 00:00: 00 04-25 23:59 :00 No [id number] 1 tablet 2 TIMES DAILY 1 tablet 2 TIMES DAILY (route: oral) Med Classific ation: Central Nervous System Agents bumetanide 1 mg tablet 02-01 00:00: 00 02-17 23:59 :00 No [id number] 1 mg DAILY 1 mg DAILY (route: oral) Med Classific ation: Cardiovas cular Therapy Agents ciprofloxac in 500 mg tablet 02-01 00:00: 00 02-02 23:59 :00 No [id number] 1 tablet DAILY 1 tablet DAILY (route: oral) Med Classific ation: Anti-Infe ctive Agents cyanocobala min (vit B-12) 500 mcg tablet 02-01 00:00: 00 08-01 23:59 :00 No [id number] 2 tablet BEDTIME 2 tablet BEDTIME (route: oral) Med Classific ation: Electroly te Balance-N utritiona l Products gabapentin 400 mg capsule 02-08 00:00: 00 04-25 23:59 :00 No [id number] 1 capsule 2 TIMES DAILY 1 capsule 2 TIMES DAILY (route: oral) Med Classific ation: Central Nervous System Agents lactulose 20 gram/30 mL oral solution 02-01 00:00: 00 04-25 23:59 :00 No [id number] 45 mL 3 TIMES DAILY 45 mL 3 TIMES DAILY (route: oral) Med Classific ation: Gastroint estinal Therapy Agents Tresiba FlexTouch U-100 insulin 100 unit/mL (3 mL) subcutaneou s pen 02-01 00:00: 00 08-01 23:59 :00 No [id number] 6 unit BEDTIME 6 unit BEDTIME (route: subcutaneo us) Med Classific ation: Endocrine bumetanide 1 mg tablet 02-17 00:00: 00 02-21 23:59 :00 No [id number] 2 tablet DAILY 2 tablet DAILY (route: oral) Med Classific ation: Cardiovas cular Therapy Agents bumetanide 1 mg tablet 02-17 00:00: 00 03-01 23:59 :00 No [id number] 1 tablet 2 TIMES DAILY 1 tablet 2 TIMES DAILY (route: oral) Med Classific ation: Cardiovas cular Therapy Agents spironolact one 25 mg tablet 03-01 00:00: 00 04-25 00:00 :00 No [id number] 2 tablet DAILY 2 tablet DAILY (route: oral) Med Classific ation: Cardiovas cular Therapy Agents torsemide 20 mg tablet 03-01 00:00: 00 04-25 00:00 :00 No [id number] 2 tablet DAILY 2 tablet DAILY (route: oral) Med Classific ation: Cardiovas cular Therapy Agents midodrine 10 mg tablet 03-01 00:00: 00 08-01 23:59 :00 No [id number] 1 tablet DIRECTED 1 tablet DIRECTED (route: oral) Med Classific ation: Cardiovas cular Therapy Agents Humulin R Regular U-100 Insulin 100 unit/mL injection solution 03-21 00:00: 00 04-25 00:00 :00 No [id number] 20 unit 3 TIMES DAILY 20 unit 3 TIMES DAILY (route: injection) Med Classific ation: Endocrine Basaglar KwikPen U-100 Insulin 100 unit/mL (3 mL) [facility] 04-25 00:00: 00 08-01 23:59 :00 No [id number] 1 unit 3 TIMES DAILY 1 unit 3 TIMES DAILY (route: subcutaneo us) Med Classific ation: Endocrine bumetanide 1 mg tablet 04-25 00:00: 00 08-01 23:59 :00 No [id number] 1 tablet DAILY 1 tablet DAILY (route: oral) Med Classific ation: Cardiovas cular Therapy Agents spironolact one 25 mg tablet 04-25 00:00: 00 08-01 23:59 :00 No [id number] 1 tablet DAILY 1 tablet DAILY (route: oral) Med Classific ation: Cardiovas cular Therapy Agents atorvastati n 80 mg tablet 04-26 00:00: 00 08-01 23:59 :00 No [id number] 0.5 tablet BEDTIME 0.5 tablet BEDTIME (route: oral) Med Classific ation: Cardiovas cular Therapy Agents carvedilol 6.25 mg tablet 04-26 00:00: 00 08-01 23:59 :00 No [id number] 1 tablet 2 TIMES DAILY 1 tablet 2 TIMES DAILY (route: oral) Med Classific ation: Cardiovas cular Therapy Agents alprazolam 0.5 mg tablet 04-26 00:00: 00 08-01 23:59 :00 No [id number] 1 tablet 2 TIMES DAILY 1 tablet 2 TIMES DAILY (route: oral) Med Classific ation: Central Nervous System Agents gabapentin 300 mg capsule 04-26 00:00: 00 08-01 23:59 :00 No [id number] 1 capsule 2 TIMES DAILY 1 capsule 2 TIMES DAILY (route: oral) Med Classific ation: Central Nervous System Agents cyanocobala min (vit B-12) 500 mcg tablet 04-26 00:00: 00 08-01 23:59 :00 No [id number] 2 tablet BEDTIME 2 tablet BEDTIME (route: oral) Med Classific ation: Electroly te Balance-N utritiona l Products lactulose 10 gram/15 mL oral solution 04-26 00:00: 00 08-01 23:59 :00 No [id number] 30 mL 2 TIMES DAILY 30 mL [...] End Date/Time Encounter Type Admission Type Attending [facility] Care Facility Care Department Encounter ID Discharge Date Discharge Status Discharge Condition Discharge Reason Percent Goals Met 2023-11-13 00:00:00 2024-05-10 00:00:00 [facility] [id number] 2024-05-10 00:00:00 DISCHARGED /TRANSFERR ED TO A [facility] FOR INPATIENT CARE REMAINS INPATIENT AT TIME OF DISCHARGE REMAINS IN INPATIENT FACILITY AT END OF CERT PERIOD 75.76
--- OUTSIDE RECORDS SUMMARY | 2024-08-25 02:12 | XMS_ITS | Clinical Summary ---
Author Organization Unknown Care Team Providers Care Observation Nurse Name Role Phone RYAN TAPIA, LEI Unavailable Unavailable AUSTIN RN, NEYDA Unavailable Unavailable GUZMAN RN, GUILLERMO Unavailable Unavailable NORMA THORNE, RAPHAEL Unavailable Unavailable Payers Payer Name Policy Type Policy Number Effective Date Expira tion Date MEDICARE - NGS [place] [id number] [facility] [id number] Problems Condition Name Condition Details Condition Category [...] 11-12 00:00: 00 ATHSCL HEART DISEASE OF [place] CORONARY ARTERY W/O ANG PCTRS Active 11-12 [...] 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 11-12 00:00: 00 [facility] (CURRENT) 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 DRUGS Active 11-12 00:00: 00 [facility] (CURRENT) USE OF INSULIN Active 11-12 00:00: [...] 10-21 00:00: 00 02-01 23:59 :00 No [id number] Per instruc tions AT BEDTIME Per instructio ns AT BEDTIME (route: subcutaneo us) Med Classific ation: Endocrine bethanechol chloride 25 mg tablet 10-18 00:00: 00 04-25 00:00 :00 No [id number] Per instruc tions TWICE DAILY Per instructio ns TWICE DAILY (route: oral) Med Classific ation: Genitouri nary Therapy Farxiga 10 mg tablet 2-04 00:00: 00 08-01 23:59 :00 No [id number] Per instruc tions DAILY Per instructio ns DAILY (route: oral) Med Classific ation: Endocrine ezetimibe 10 mg tablet 1-30 00:00: 00 08-01 23:59 :00 No [id number] Unavailable Per instruc tions DAILY Per instructio ns DAILY (route: oral) Med Classific ation: Cardiovas cular Therapy Agents Novolog FlexPen U-100 Insulin aspart 100 unit/mL (3 mL) subcutane s 1- 00:00: 00 03-21 23:59 :00 No [id number] Per instruc tions 3 TIMES DAILY Per instructio ns 3 TIMES DAILY (route: subcutaneo us) Med Classific ation: Endocrine Basaglar KwikPen U-100 Insulin 100 unit/mL (3 mL) [facility] 1-25 00:00: 00 11-12 23:59 :00 No [id number] Unavailable Per instruc tions SUBCUTANEO US ONCE EVERY Per instructio ns SUBCUTANEO US ONCE EVERY (route: subcutaneo us) Med Classific ation: Endocrine alprazolam 0.5 mg tablet 1-22 00:00: 00 02-01 23:59 :00 No [id number] Unavailable Per instruc tions TWICE DAILY NEEDED Per instructio ns TWICE DAILY NEEDED (route: oral) Med Classific ation: Central Nervous System Agents aspirin 81 mg tablet,shayna yed release - 00:00: 00 04-25 23:59 :00 No [id number] 1 tablet DAILY 1 tablet DAILY (route: oral) Med Classific ation: Hematolog ical Agents atorvastati n 80 mg tablet 3- 00:00: 00 04-25 23:59 :00 No [id number] 1 tablet BEDTIME 1 tablet BEDTIME (route: oral) Med Classific ation: Cardiovas cular Therapy Agents carvedilol 6.25 mg tablet 11-12 00:00: 00 03-01 23:59 :00 No [id number] 1 tablet 2 TIMES DAILY 1 tablet 2 TIMES DAILY (route: oral) Med Classific ation: Cardiovas cular Therapy Agents finasteride 5 mg tablet 11-12 00:00: 00 08-01 23:59 :00 No [id number] 1 tablet DAILY 1 tablet DAILY (route: oral) Med Classific ation: Genitouri nary Therapy Flomax 0.4 mg capsule 11-12 00:00: 00 08-01 23:59 :00 No [id number] 1 capsule DAILY 1 capsule DAILY (route: oral) Med Classific ation: Genitouri nary Therapy gabapentin 400 mg capsule 11-12 00:00: 00 02-01 23:59 :00 No [id number] 1 capsule 2 TIMES DAILY 1 capsule 2 TIMES DAILY (route: oral) Med Classific ation: Central Nervous System Agents iron 325 mg (65 mg iron) tablet 11-12 00:00: 00 08-01 23:59 :00 No [id number] 1 tablet DAILY 1 tablet DAILY (route: oral) Med Classific ation: Electroly te Balance-N utritiona l Products pantoprazol e 40 mg tablet,shayna yed release 11-12 00:00: 00 08-01 23:59 :00 No [id number] 1 tablet DAILY 1 tablet DAILY (route: oral) Med Classific ation: Gastroint estinal Therapy Agents spironolact one 50 mg tablet 11-12 00:00: 00 02-01 23:59 :00 No [id number] 1 tablet DAILY 1 tablet DAILY (route: oral) Med Classific ation: Cardiovas cular Therapy Agents Trulicity 0.75 mg/0.5 mL subcutaneou s pen injector 11-12 00:00: 00 08-01 23:59 :00 No [id number] 0.5 mL WEEKLY 0.5 mL WEEKLY (route: subcutaneo us) Med Classific ation: Endocrine Vitamin B-12 500 mcg tablet 11-12 00:00: 00 02-01 00:00 :00 No [id number] 2 tablet BEDTIME 2 tablet BEDTIME (route: oral) Med Classific ation: Electroly te Balance-N utritiona l Products alprazolam 0.5 mg tablet 02-08 00:00: 00 04-25 23:59 :00 No [id number] 1 tablet 2 TIMES DAILY 1 tablet 2 TIMES DAILY (route: oral) Med Classific ation: Central Nervous System Agents bumetanide 1 mg tablet 02-01 00:00: 00 02-17 23:59 :00 No [id number] 1 mg DAILY 1 mg DAILY (route: oral) Med Classific ation: Cardiovas cular Therapy Agents ciprofloxac in 500 mg tablet 02-01 00:00: 00 02-02 23:59 :00 No [id number] 1 tablet DAILY 1 tablet DAILY (route: oral) Med Classific ation: Anti-Infe ctive Agents cyanocobala min (vit B-12) 500 mcg tablet 02-01 00:00: 00 08-01 23:59 :00 No [id number] 2 tablet BEDTIME 2 tablet BEDTIME (route: oral) Med Classific ation: Electroly te Balance-N utritiona l Products gabapentin 400 mg capsule 02-08 00:00: 00 04-25 23:59 :00 No [id number] 1 capsule 2 TIMES DAILY 1 capsule 2 TIMES DAILY (route: oral) Med Classific ation: Central Nervous System Agents lactulose 20 gram/30 mL oral solution 02-01 00:00: 00 04-25 23:59 :00 No [id number] 45 mL 3 TIMES DAILY 45 mL 3 TIMES DAILY (route: oral) Med Classific ation: Gastroint estinal Therapy Agents Tresiba FlexTouch U-100 insulin 100 unit/mL (3 mL) subcutaneou s pen 02-01 00:00: 00 08-01 23:59 :00 No [id number] 6 unit BEDTIME 6 unit BEDTIME (route: subcutaneo us) Med Classific ation: Endocrine bumetanide 1 mg tablet 02-17 00:00: 00 02-21 23:59 :00 No [id number] 2 tablet DAILY 2 tablet DAILY (route: oral) Med Classific ation: Cardiovas cular Therapy Agents bumetanide 1 mg tablet 02-17 00:00: 00 03-01 23:59 :00 No [id number] 1 tablet 2 TIMES DAILY 1 tablet 2 TIMES DAILY (route: oral) Med Classific ation: Cardiovas cular Therapy Agents spironolact one 25 mg tablet 03-01 00:00: 00 04-25 00:00 :00 No [id number] 2 tablet DAILY 2 tablet DAILY (route: oral) Med Classific ation: Cardiovas cular Therapy Agents torsemide 20 mg tablet 03-01 00:00: 00 04-25 00:00 :00 No [id number] 2 tablet DAILY 2 tablet DAILY (route: oral) Med Classific ation: Cardiovas cular Therapy Agents midodrine 10 mg tablet 03-01 00:00: 00 08-01 23:59 :00 No [id number] 1 tablet DIRECTED 1 tablet DIRECTED (route: oral) Med Classific ation: Cardiovas cular Therapy Agents Humulin R Regular U-100 Insulin 100 unit/mL injection solution 03-21 00:00: 00 04-25 00:00 :00 No [id number] 20 unit 3 TIMES DAILY 20 unit 3 TIMES DAILY (route: injection) Med Classific ation: Endocrine Basaglar KwikPen U-100 Insulin 100 unit/mL (3 mL) [facility] 04-25 00:00: 00 08-01 23:59 :00 No [id number] 1 unit 3 TIMES DAILY 1 unit 3 TIMES DAILY (route: subcutaneo us) Med Classific ation: Endocrine bumetanide 1 mg tablet 04-25 00:00: 00 08-01 23:59 :00 No [id number] 1 tablet DAILY 1 tablet DAILY (route: oral) Med Classific ation: Cardiovas cular Therapy Agents spironolact one 25 mg tablet 04-25 00:00: 00 08-01 23:59 :00 No [id number] 1 tablet DAILY 1 tablet DAILY (route: oral) Med Classific ation: Cardiovas cular Therapy Agents atorvastati n 80 mg tablet 04-26 00:00: 00 08-01 23:59 :00 No [id number] 0.5 tablet BEDTIME 0.5 tablet BEDTIME (route: oral) Med Classific ation: Cardiovas cular Therapy Agents carvedilol 6.25 mg tablet 04-26 00:00: 00 08-01 23:59 :00 No [id number] 1 tablet 2 TIMES DAILY 1 tablet 2 TIMES DAILY (route: oral) Med Classific ation: Cardiovas cular Therapy Agents alprazolam 0.5 mg tablet 04-26 00:00: 00 08-01 23:59 :00 No [id number] 1 tablet 2 TIMES DAILY 1 tablet 2 TIMES DAILY (route: oral) Med Classific ation: Central Nervous System Agents gabapentin 300 mg capsule 04-26 00:00: 00 08-01 23:59 :00 No [id number] 1 capsule 2 TIMES DAILY 1 capsule 2 TIMES DAILY (route: oral) Med Classific ation: Central Nervous System Agents cyanocobala min (vit B-12) 500 mcg tablet 04-26 00:00: 00 08-01 23:59 :00 No [id number] 2 tablet BEDTIME 2 tablet BEDTIME (route: oral) Med Classific ation: Electroly te Balance-N utritiona l Products lactulose 10 gram/15 mL oral solution 04-26 00:00: 00 08-01 23:59 :00 No [id number] 30 mL 2 TIMES DAILY 30 mL [...] CARE WILL BE ESTABLISHED THAT MEETS PATIENT'S MCFP NEEDS AND INCLUDES PATIENT GOAL FOR HOME [...] End Date/Time Encounter Type Admission Type Attending [facility] Care Facility Care Department Encounter ID Discharge Date Discharge Status Discharge Condition Discharge Reason Percent Goals Met 2023-11-13 00:00:00 2024-05-10 00:00:00 [facility] [id number] 2024-05-10 00:00:00 DISCHARGED /TRANSFERR ED TO A [facility] FOR INPATIENT CARE REMAINS INPATIENT AT TIME OF DISCHARGE REMAINS IN INPATIENT FACILITY AT END OF CERT PERIOD 75.76
== END 2024-08-24 13:49 | disposition home or self-care (01) ==
LOC: HO.HMCH 12:36
PROVIDERS: PCP Physician Assistant; Visit Provider Physician Assistant
DX: K76.82 Hepatic encephalopathy (principal); Z09 Encounter for follow-up examination after completed treatment for conditions other than malignant neoplasm

== ENCOUNTER → 2024-08-24 12:36 | Outpatient (BNVA) | payer MEDICARE, SELFPAY | PROVIDERS: PCP Physician Assistant; Visit Provider Physician Assistant | DX: Z09 Encounter for follow-up examination after completed treatment for conditions other than malignant neoplasm (principal); K76.82 Hepatic encephalopathy | CPT/HCPCS: 99495 ==

== ENCOUNTER 2024-08-29 07:37 | Outpatient (REF) | payer MEDICARE, SELFPAY ==
--- OUTSIDE RECORDS SUMMARY | 2024-08-29 07:40 | XMS_ITS | Clinical Summary ---
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 DRUGS Active [...] 10-21 00:00: 00 02-01 23:59 :00 No [id number] Per instruc tions AT BEDTIME Per instructio ns AT BEDTIME (route: subcutaneo us) Med Classific ation: Endocrine bethanechol chloride 25 mg tablet 10-18 00:00: 00 04-25 00:00 :00 No [id number] Per instruc tions TWICE DAILY Per instructio ns TWICE DAILY (route: oral) Med Classific ation: Genitouri nary Therapy Farxiga 10 mg tablet 2-04 00:00: 00 08-01 23:59 :00 No [id number] Per instruc tions DAILY Per instructio ns DAILY (route: oral) Med Classific ation: Endocrine ezetimibe 10 mg tablet 1-30 00:00: 00 08-01 23:59 :00 No [id number] Unavailable Per instruc tions DAILY Per instructio ns DAILY (route: oral) Med Classific ation: Cardiovas cular Therapy Agents Novolog FlexPen U-100 Insulin aspart 100 unit/mL (3 mL) subcutane s 1- 00:00: 00 03-21 23:59 :00 No [id number] Per instruc tions 3 TIMES DAILY Per instructio ns 3 TIMES DAILY (route: subcutaneo us) Med Classific ation: Endocrine Basaglar KwikPen U-100 [facility]ulin 100 unit/mL (3 mL) [facility] 1-25 00:00: 00 11-12 23:59 :00 No [id number] Unavailable Per instruc tions SUBCUTANEO US ONCE EVERY Per instructio ns SUBCUTANEO US ONCE EVERY (route: subcutaneo us) Med Classific ation: Endocrine alprazolam 0.5 mg tablet 1-22 00:00: 00 02-01 23:59 :00 No [id number] Unavailable Per instruc tions TWICE DAILY NEEDED Per instructio ns TWICE DAILY NEEDED (route: oral) Med Classific ation: Central Nervous System Agents aspirin 81 mg tablet,shayna yed release - 00:00: 00 04-25 23:59 :00 No [id number] 1 tablet DAILY 1 tablet DAILY (route: oral) Med Classific ation: Hematolog ical Agents atorvastati n 80 mg tablet 3- 00:00: 00 04-25 23:59 :00 No [id number] 1 tablet BEDTIME 1 tablet BEDTIME (route: oral) Med Classific ation: Cardiovas cular Therapy Agents carvedilol 6.25 mg tablet 11-12 00:00: 00 03-01 23:59 :00 No [id number] 1 tablet 2 TIMES DAILY 1 tablet 2 TIMES DAILY (route: oral) Med Classific ation: Cardiovas cular Therapy Agents finasteride 5 mg tablet 11-12 00:00: 00 08-01 23:59 :00 No [id number] 1 tablet DAILY 1 tablet DAILY (route: oral) Med Classific ation: Genitouri nary Therapy Flomax 0.4 mg capsule 11-12 00:00: 00 08-01 23:59 :00 No [id number] 1 capsule DAILY 1 capsule DAILY (route: oral) Med Classific ation: Genitouri nary Therapy gabapentin 400 mg capsule 11-12 00:00: 00 02-01 23:59 :00 No [id number] 1 capsule 2 TIMES DAILY 1 capsule 2 TIMES DAILY (route: oral) Med Classific ation: Central Nervous System Agents iron 325 mg (65 mg iron) tablet 11-12 00:00: 00 08-01 23:59 :00 No [id number] 1 tablet DAILY 1 tablet DAILY (route: oral) Med Classific ation: Electroly te Balance-N utritiona l Products pantoprazol e 40 mg tablet,shayna yed release 11-12 00:00: 00 08-01 23:59 :00 No [id number] 1 tablet DAILY 1 tablet DAILY (route: oral) Med Classific ation: Gastroint estinal Therapy Agents spironolact one 50 mg tablet 11-12 00:00: 00 02-01 23:59 :00 No [id number] 1 tablet DAILY 1 tablet DAILY (route: oral) Med Classific ation: Cardiovas cular Therapy Agents Trulicity 0.75 mg/0.5 mL subcutaneou s pen injector 11-12 00:00: 00 08-01 23:59 :00 No [id number] 0.5 mL WEEKLY 0.5 mL WEEKLY (route: subcutaneo us) Med Classific ation: Endocrine Vitamin B-12 500 mcg tablet 11-12 00:00: 00 02-01 00:00 :00 No [id number] 2 tablet BEDTIME 2 tablet BEDTIME (route: oral) Med Classific ation: Electroly te Balance-N utritiona l Products alprazolam 0.5 mg tablet 02-08 00:00: 00 04-25 23:59 :00 No [id number] 1 tablet 2 TIMES DAILY 1 tablet 2 TIMES DAILY (route: oral) Med Classific ation: Central Nervous System Agents bumetanide 1 mg tablet 02-01 00:00: 00 02-17 23:59 :00 No [id number] 1 mg DAILY 1 mg DAILY (route: oral) Med Classific ation: Cardiovas cular Therapy Agents ciprofloxac in 500 mg tablet 02-01 00:00: 00 02-02 23:59 :00 No [id number] 1 tablet DAILY 1 tablet DAILY (route: oral) Med Classific ation: Anti-Infe ctive Agents cyanocobala min (vit B-12) 500 mcg tablet 02-01 00:00: 00 08-01 23:59 :00 No [id number] 2 tablet BEDTIME 2 tablet BEDTIME (route: oral) Med Classific ation: Electroly te Balance-N utritiona l Products gabapentin 400 mg capsule 02-08 00:00: 00 04-25 23:59 :00 No [id number] 1 capsule 2 TIMES DAILY 1 capsule 2 TIMES DAILY (route: oral) Med Classific ation: Central Nervous System Agents lactulose 20 gram/30 mL oral solution 02-01 00:00: 00 04-25 23:59 :00 No [id number] 45 mL 3 TIMES DAILY 45 mL 3 TIMES DAILY (route: oral) Med Classific ation: Gastroint estinal Therapy Agents Tresiba FlexTouch U-100 insulin 100 unit/mL (3 mL) subcutaneou s pen 02-01 00:00: 00 08-01 23:59 :00 No [id number] 6 unit BEDTIME 6 unit BEDTIME (route: subcutaneo us) Med Classific ation: Endocrine bumetanide 1 mg tablet 02-17 00:00: 00 02-21 23:59 :00 No [id number] 2 tablet DAILY 2 tablet DAILY (route: oral) Med Classific ation: Cardiovas cular Therapy Agents bumetanide 1 mg tablet 02-17 00:00: 00 03-01 23:59 :00 No [id number] 1 tablet 2 TIMES DAILY 1 tablet 2 TIMES DAILY (route: oral) Med Classific ation: Cardiovas cular Therapy Agents spironolact one 25 mg tablet 03-01 00:00: 00 04-25 00:00 :00 No [id number] 2 tablet DAILY 2 tablet DAILY (route: oral) Med Classific ation: Cardiovas cular Therapy Agents torsemide 20 mg tablet 03-01 00:00: 00 04-25 00:00 :00 No [id number] 2 tablet DAILY 2 tablet DAILY (route: oral) Med Classific ation: Cardiovas cular Therapy Agents midodrine 10 mg tablet 03-01 00:00: 00 08-01 23:59 :00 No [id number] 1 tablet DIRECTED 1 tablet DIRECTED (route: oral) Med Classific ation: Cardiovas cular Therapy Agents Humulin R Regular U-100 Insulin 100 unit/mL injection solution 03-21 00:00: 00 04-25 00:00 :00 No [id number] 20 unit 3 TIMES DAILY 20 unit 3 TIMES DAILY (route: injection) Med Classific ation: Endocrine Basaglar KwikPen U-100 Insulin 100 unit/mL (3 mL) [facility] 04-25 00:00: 00 08-01 23:59 :00 No [id number] 1 unit 3 TIMES DAILY 1 unit 3 TIMES DAILY (route: subcutaneo us) Med Classific ation: Endocrine bumetanide 1 mg tablet 04-25 00:00: 00 08-01 23:59 :00 No [id number] 1 tablet DAILY 1 tablet DAILY (route: oral) Med Classific ation: Cardiovas cular Therapy Agents spironolact one 25 mg tablet 04-25 00:00: 00 08-01 23:59 :00 No [id number] 1 tablet DAILY 1 tablet DAILY (route: oral) Med Classific ation: Cardiovas cular Therapy Agents atorvastati n 80 mg tablet 04-26 00:00: 00 08-01 23:59 :00 No [id number] 0.5 tablet BEDTIME 0.5 tablet BEDTIME (route: oral) Med Classific ation: Cardiovas cular Therapy Agents carvedilol 6.25 mg tablet 04-26 00:00: 00 08-01 23:59 :00 No [id number] 1 tablet 2 TIMES DAILY 1 tablet 2 TIMES DAILY (route: oral) Med Classific ation: Cardiovas cular Therapy Agents alprazolam 0.5 mg tablet 04-26 00:00: 00 08-01 23:59 :00 No [id number] 1 tablet 2 TIMES DAILY 1 tablet 2 TIMES DAILY (route: oral) Med Classific ation: Central Nervous System Agents gabapentin 300 mg capsule 04-26 00:00: 00 08-01 23:59 :00 No [id number] 1 capsule 2 TIMES DAILY 1 capsule 2 TIMES DAILY (route: oral) Med Classific ation: Central Nervous System Agents cyanocobala min (vit B-12) 500 mcg tablet 04-26 00:00: 00 08-01 23:59 :00 No [id number] 2 tablet BEDTIME 2 tablet BEDTIME (route: oral) Med Classific ation: Electroly te Balance-N utritiona l Products lactulose 10 gram/15 mL oral solution 04-26 00:00: 00 08-01 23:59 :00 No [id number] 30 mL 2 TIMES DAILY 30 mL [...] CARE WILL BE ESTABLISHED THAT MEETS PATIENT'S [place]RE[place] NEEDS AND INCLUDES PATIENT GOAL FOR HOME [...] End Date/Time Encounter Type Admission Type Attending [facility] Care Facility Care Department Encounter ID Discharge Date Discharge Status Discharge Condition Discharge Reason Percent Goals Met 2023-11-13 00:00:00 2024-05-10 00:00:00 [facility] [id number] 2024-05-10 00:00:00 DISCHARGED /TRANSFERR ED TO A [facility] FOR INPATIENT CARE REMAINS INPATIENT AT TIME OF DISCHARGE REMAINS IN INPATIENT FACILITY AT END OF CERT PERIOD 75.76
--- OUTSIDE RECORDS SUMMARY | 2024-08-29 07:40 | XMS_ITS | Continuity of Care Document ---
Author Organization [facility] Address [address] [address] Phone Care Team Providers Care Glass Driller Name Role Phone NAMITA Jacobson RD, Shauna Unavailable Unavail able Advance Directives Directive Yes / No Effective Date File Name No Information Encounters Encounter Description Practice Location Reason(s) For Visit Diagnoses Date Provider Providers Copied on Encounter [facility], [address] [address], [place], [place], [id number], [place] tel:[phone] [facility] No Information Indira Villatoro. [address] [place], [address]. tel:[phone] Family History Family Member Type Diagnosis Age At Onset No Information Payers Payer name Insurance type Covered alliance party ID Authoriza tion(s) No Information Social [...]
--- OUTSIDE RECORDS SUMMARY | 2024-08-29 07:40 | XMS_ITS | Clinical Summary ---
Author Organization Unknown Care Team Providers Care Store Clerk Name Role Phone RYAN TAPIA, LEI Unavailable Unavailable JOSE THORNE, GRETA Unavailable Unavailable Payers Payer Name Policy Type Policy Number Effective Date Expira tion Date MEDICARE.NGS.PDGM [id number] Problems Condition Name Condition Details Condition Category [...] 02-08 00:00: 00 ATHSCL HEART DISEASE OF [place] CORONARY ARTERY W/O ANG PCTRS Active 09-14 [...] MANAGEMENT OF VAD Active 02-08 00:00: 00 SNF (CURRENT) USE OF INSULIN Active 09-14 00:00: 00 LNG TRM (CRNT) USE INJECTABLE NON-INSULIN ANTIDIABETIC DRUGS Active 09-14 00:00: 00 SNF (CURRENT) USE OF ORAL 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 DRUGS Active 09-14 00:00: 00 SNF (CURRENT) USE OF ANTITHROMBOT ICS/ANTIPLAT ELETS Active [...] 01-14 00:00: 00 02-08 23:59 :00 No [id number] ANXIETY 1 tablet 2 TIMES DAILY 1 tablet 2 TIMES DAILY (route: oral) Med Classific ation: Central Nervous System Agents atorvastati n 80 mg tablet 01-14 00:00: 00 Yes [id number] CHOLESTEROL 1 tablet DAILY 1 tablet DAILY (route: oral) Med Classific ation: Cardiovas cular Therapy Agents bethanechol chloride 25 mg tablet 01-14 00:00: 00 Yes [id number] BLADDER 1 tablet 2 TIMES DAILY 1 tablet 2 TIMES DAILY (route: oral) Med Classific ation: Genitouri nary Therapy Farxiga 10 mg tablet 01-14 00:00: 00 Yes [id number] DM2 1 tablet DAILY 1 tablet DAILY (route: oral) Med Classific ation: Endocrine finasteride 5 mg tablet 01-14 00:00: 00 Yes [id number] BPH 1 tablet DAILY 1 tablet DAILY (route: oral) Med Classific ation: Genitouri nary Therapy gabapentin 400 mg capsule 01-14 00:00: 00 Yes [id number] NERVE PAIN 1 capsule 3 TIMES DAILY 1 capsule 3 TIMES DAILY (route: oral) Med Classific ation: Central Nervous System Agents insulin aspar prot-insuli n aspart 100 unit/mL (70-30[facility] 01-14 00:00: 00 01-16 16:23 :30.0 57 No [id number] DM2 2-25 In unit 3 TIMES DAILY 2-25 In unit 3 TIMES DAILY (route: subcutaneo us) Med Classific ation: Endocrine iron 325 mg (65 mg iron) tablet 01-14 00:00: 00 Yes [id number] SUPPLEMENT 1 tablet DAILY 1 tablet DAILY (route: oral) Med Classific ation: Electroly te Balance-N utritiona l Products mecobalamin (vitamin B12) 1,000 mcg chewable tablet 01-14 00:00: 00 Yes [id number] SUPPLEMENT 1 tablet DAILY 1 tablet DAILY (route: oral) Med Classific ation: Electroly te Balance-N utritiona l Products metoprolol succinate ER 100 mg tablet,exte nded release 24 hr 01-14 00:00: 00 02-08 23:59 :00 No [id number] HTN 1 tablet DAILY 1 tablet DAILY (route: oral) Med Classific ation: Cardiovas cular Therapy Agents omeprazole 20 mg capsule,del ayed release 01-14 00:00: 00 02-08 23:59 :00 No [id number] GERD 1 capsule 2 TIMES DAILY 1 capsule 2 TIMES DAILY (route: oral) Med Classific ation: Gastroint estinal Therapy Agents Plavix 75 mg tablet 01-14 00:00: 00 Yes [id number] CLOTING 1 tablet DAILY 1 tablet DAILY (route: oral) Med Classific ation: Hematolog ical Agents tamsulosin 0.4 mg capsule 01-14 00:00: 00 Yes [id number] BPH 1 capsule DAILY 1 capsule DAILY (route: oral) Med Classific ation: Genitouri nary Therapy torsemide 20 mg tablet 01-14 00:00: 00 02-08 23:59 :00 No [id number] EDEMA 1 tablet DAILY 1 tablet DAILY (route: oral) Med Classific ation: Cardiovas cular Therapy Agents tramadol 50 mg tablet 01-14 00:00: 00 Yes [id number] PAIN 0.5 tablet EVERY 6 HOURS 0.5 tablet EVERY 6 HOURS (route: oral) Med Classific ation: Analgesic , Anti-infl ammatory or Antipyret ic Tresiba FlexTouch U-100 insulin 100 unit/mL (3 mL) subcutaneou s pen 01-14 00:00: 00 02-08 23:59 :00 No [id number] DM2 64 In unit DAILY 64 In unit DAILY (route: subcutaneo us) Med Classific ation: Endocrine Trulicity 0.75 mg/0.5 mL subcutaneou s pen injector 01-14 00:00: 00 Yes [id number] DM2 0.5 mL WEEKLY 0.5 mL WEEKLY (route: subcutaneo us) Med Classific ation: Endocrine Zetia 10 mg tablet 01-14 00:00: 00 Yes [id number] CHOLESTEROL 1 tablet DAILY 1 tablet DAILY (route: oral) Med Classific ation: Cardiovas cular Therapy Agents ceftriaxone 1 gram intravenous solution 02-08 00:00: 00 03-08 23:59 :00 No [id number] infection 2 gram DAILY 2 gram DAILY (route: intravenou s) Med Classific ation: Anti-Infe ctive Agents sodium chloride 0.9 % intravenous solution 02-08 00:00: 00 Yes [id number] flush 10 mL DIRECTED 10 mL DIRECTED (route: intravenou s) Med Classific ation: Electroly te Balance-N utritiona l Products heparin, porcine (PF) 10 unit/mL intravenous syringe 02-08 00:00: 00 Yes [id number] flush 5 mL DIRECTED 5 mL DIRECTED (route: intravenou s) Med Classific ation: Hematolog ical Agents carvedilol 6.25 mg tablet 02-08 00:00: 00 Yes [id number] heart 1 tablet 2 TIMES DAILY 1 tablet 2 TIMES DAILY (route: oral) Med Classific ation: Cardiovas cular Therapy Agents Lasix 40 mg tablet 02-08 00:00: 00 Yes [id number] fluid 1 tablet 2 TIMES DAILY 1 tablet 2 TIMES DAILY (route: oral) Med Classific ation: Cardiovas cular Therapy Agents Tresiba U-100 Insulin 100 unit/mL subcutaneou s solution 02-08 00:00: 00 Yes [id number] blood sugar 10 unit BEDTIME 10 unit BEDTIME (route: subcutaneo us) Med Classific ation: Endocrine pantoprazol e 40 mg tablet,shayna yed release 02-08 00:00: 00 Yes [id number] gerd 1 tablet DAILY 1 tablet DAILY (route: oral) Med Classific ation: Gastroint estinal Therapy Agents Aldactone 100 mg tablet 02-08 00:00: 00 Yes [id number] BP 1 tablet DAILY 1 tablet DAILY (route: oral) Med Classific ation: Cardiovas cular Therapy Agents aspirin 81 mg tablet,shayna yed release 02-08 00:00: 00 Yes [id number] ANTICOAGULA NT 1 tablet DAILY 1 tablet DAILY (route: oral) Med Classific ation: Hematolog ical Agents ceftriaxone 2 gram intravenous solution 02-08 00:00: 00 03-08 23:59 :00 No [id number] CERVICAL OSTEOMYELIT IS 2 g DAILY 2 g DAILY (route: intravenou s) Med Classific ation: Anti-Infe ctive Agents Coreg 6.25 mg tablet 02-08 00:00: 00 Yes [id number] BP 1 tablet 2 TIMES DAILY 1 tablet 2 TIMES DAILY (route: oral) Med Classific ation: Cardiovas cular Therapy Agents lactulose 10 gram/15 mL (15 mL) oral solution 02-08 00:00: 00 Yes [id number] LAXATIVE 15 mL NEEDED 15 mL NEEDED (route: oral) Med Classific ation: Gastroint estinal Therapy Agents Lasix 40 mg tablet 02-08 00:00: 00 Yes [id number] DIURETIC 1 tablet DAILY 1 tablet DAILY (route: oral) Med Classific ation: Cardiovas cular Therapy Agents midodrine 10 mg tablet 02-08 00:00: 00 Yes [id number] BP 1 tablet 3 TIMES DAILY 1 tablet 3 TIMES DAILY (route: oral) Med Classific ation: Cardiovas cular Therapy Agents Novolog FlexPen U-100 Insulin aspart 100 unit/mL (3 mL) subcutaneou s 02-08 00:00: 00 Yes [id number] DM2 Per instruc tions BEFORE MEALS Per instructio ns BEFORE MEALS (route: subcutaneo us) Med Classific ation: Endocrine pantoprazol e 40 mg tablet,shayna yed release 02-08 00:00: 00 Yes [id number] REFLUX 1 tablet DAILY 1 tablet DAILY (route: oral) Med Classific ation: Gastroint estinal Therapy Agents Tresiba FlexTouch U-100 insulin 100 unit/mL (3 mL) subcutaneou s pen 02-08 00:00: 00 Yes [id number] DM2 10 unit BEDTIME 10 unit BEDTIME [...] PATIENT REPORTED WEIGHT AND NOTIFY CM / SCROLL SHEAR OPERATOR FOR MD NOTIFICATION FOR SIGNS AND SYMPTOMS [...] PATIENT REPORTED WEIGHT AND NOTIFY CM / SCROLL SHEAR OPERATOR FOR MD NOTIFICATION FOR SIGNS AND SYMPTOMS [...] End Date/Time Encounter Type Admission Type Attending [facility] Care Department Encounter ID Discharge Date Discharge Status Discharge Condition Discharge Reason Percent Goals Met 2023-01-14 00:00:00 2023-03-12 00:00:00 Outpatient GRETA DELGADO [facility] [id number] 2023-03-12 00:00:00 DISCHARGE TO HOME OR SELF CARE INDEPENDEN T IN THE COMM[facility] HH OR [facility]- GOALS MET 100.00
--- OUTSIDE RECORDS SUMMARY | 2024-08-29 07:40 | XMS_ITS | Clinical Summary ---
Author Organization Unknown Care Team Providers Care Box Loader Name Role Phone RYAN TAPIA, LEI Unavailable Unavailable JOSE THORNE, GRETA Unavailable Unavailable Payers Payer Name Policy Type Policy Number Effective Date Expira tion Date MEDICARE.NGS.PDGM [id number] Problems Condition Name Condition Details Condition Category [...] 02-08 00:00: 00 ATHSCL HEART DISEASE OF [place] CORONARY ARTERY W/O ANG PCTRS Active 09-14 [...] MANAGEMENT OF VAD Active 02-08 00:00: 00 NURSING HOME (CURRENT) USE OF INSULIN Active 09-14 00:00: 00 LNG TRM (CRNT) USE INJECTABLE NON-INSULIN ANTIDIABETIC DRUGS Active 09-14 00:00: 00 NURSING HOME (CURRENT) USE OF ORAL 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 DRUGS Active 09-14 00:00: 00 NURSING HOME (CURRENT) USE OF ANTITHROMBOT ICS/ANTIPLAT ELETS [...] 01-14 00:00: 00 02-08 23:59 :00 No [id number] ANXIETY 1 tablet 2 TIMES DAILY 1 tablet 2 TIMES DAILY (route: oral) Med Classific ation: Central Nervous System Agents atorvastati n 80 mg tablet 01-14 00:00: 00 Yes [id number] CHOLESTEROL 1 tablet DAILY 1 tablet DAILY (route: oral) Med Classific ation: Cardiovas cular Therapy Agents bethanechol chloride 25 mg tablet 01-14 00:00: 00 Yes [id number] BLADDER 1 tablet 2 TIMES DAILY 1 tablet 2 TIMES DAILY (route: oral) Med Classific ation: Genitouri nary Therapy Farxiga 10 mg tablet 01-14 00:00: 00 Yes [id number] DM2 1 tablet DAILY 1 tablet DAILY (route: oral) Med Classific ation: Endocrine finasteride 5 mg tablet 01-14 00:00: 00 Yes [id number] BPH 1 tablet DAILY 1 tablet DAILY (route: oral) Med Classific ation: Genitouri nary Therapy gabapentin 400 mg capsule 01-14 00:00: 00 Yes [id number] NERVE PAIN 1 capsule 3 TIMES DAILY 1 capsule 3 TIMES DAILY (route: oral) Med Classific ation: Central Nervous System Agents insulin aspar prot-insuli n aspart 100 unit/mL (70-30) [facility] 01-14 00:00: 00 01-16 16:23 :30.0 57 No [id number] DM2 2-25 In unit 3 TIMES DAILY 2-25 In unit 3 TIMES DAILY (route: subcutaneo us) Med Classific ation: Endocrine iron 325 mg (65 mg iron) tablet 01-14 00:00: 00 Yes [id number] SUPPLEMENT 1 tablet DAILY 1 tablet DAILY (route: oral) Med Classific ation: Electroly te Balance-N utritiona l Products mecobalamin (vitamin B12) 1,000 mcg chewable tablet 01-14 00:00: 00 Yes [id number] SUPPLEMENT 1 tablet DAILY 1 tablet DAILY (route: oral) Med Classific ation: Electroly te Balance-N utritiona l Products metoprolol succinate ER 100 mg tablet,exte nded release 24 hr 01-14 00:00: 00 02-08 23:59 :00 No [id number] HTN 1 tablet DAILY 1 tablet DAILY (route: oral) Med Classific ation: Cardiovas cular Therapy Agents omeprazole 20 mg capsule,del ayed release 01-14 00:00: 00 02-08 23:59 :00 No [id number] GERD 1 capsule 2 TIMES DAILY 1 capsule 2 TIMES DAILY (route: oral) Med Classific ation: Gastroint estinal Therapy Agents Plavix 75 mg tablet 01-14 00:00: 00 Yes [id number] CLOTING 1 tablet DAILY 1 tablet DAILY (route: oral) Med Classific ation: Hematolog ical Agents tamsulosin 0.4 mg capsule 01-14 00:00: 00 Yes [id number] BPH 1 capsule DAILY 1 capsule DAILY (route: oral) Med Classific ation: Genitouri nary Therapy torsemide 20 mg tablet 01-14 00:00: 00 02-08 23:59 :00 No [id number] EDEMA 1 tablet DAILY 1 tablet DAILY (route: oral) Med Classific ation: Cardiovas cular Therapy Agents tramadol 50 mg tablet 01-14 00:00: 00 Yes [id number] PAIN 0.5 tablet EVERY 6 HOURS 0.5 tablet EVERY 6 HOURS (route: oral) Med Classific ation: Analgesic , Anti-infl ammatory or Antipyret ic Tresiba FlexTouch U-100 insulin 100 unit/mL (3 mL) subcutaneou s pen 01-14 00:00: 00 02-08 23:59 :00 No [id number] DM2 64 In unit DAILY 64 In unit DAILY (route: subcutaneo us) Med Classific ation: Endocrine Trulicity 0.75 mg/0.5 mL subcutaneou s pen injector 01-14 00:00: 00 Yes [id number] DM2 0.5 mL WEEKLY 0.5 mL WEEKLY (route: subcutaneo us) Med Classific ation: Endocrine Zetia 10 mg tablet 01-14 00:00: 00 Yes [id number] CHOLESTEROL 1 tablet DAILY 1 tablet DAILY (route: oral) Med Classific ation: Cardiovas cular Therapy Agents ceftriaxone 1 gram intravenous solution 02-08 00:00: 00 03-08 23:59 :00 No [id number] infection 2 gram DAILY 2 gram DAILY (route: intravenou s) Med Classific ation: Anti-Infe ctive Agents sodium chloride 0.9 % intravenous solution 02-08 00:00: 00 Yes [id number] flush 10 mL DIRECTED 10 mL DIRECTED (route: intravenou s) Med Classific ation: Electroly te Balance-N utritiona l Products heparin, porcine (PF) 10 unit/mL intravenous syringe 02-08 00:00: 00 Yes [id number] flush 5 mL DIRECTED 5 mL DIRECTED (route: intravenou s) Med Classific ation: Hematolog ical Agents carvedilol 6.25 mg tablet 02-08 00:00: 00 Yes [id number] heart 1 tablet 2 TIMES DAILY 1 tablet 2 TIMES DAILY (route: oral) Med Classific ation: Cardiovas cular Therapy Agents Lasix 40 mg tablet 02-08 00:00: 00 Yes [id number] fluid 1 tablet 2 TIMES DAILY 1 tablet 2 TIMES DAILY (route: oral) Med Classific ation: Cardiovas cular Therapy Agents Tresiba U-100 Insulin 100 unit/mL subcutaneou s solution 02-08 00:00: 00 Yes [id number] blood sugar 10 unit BEDTIME 10 unit BEDTIME (route: subcutaneo us) Med Classific ation: Endocrine pantoprazol e 40 mg tablet,shayna yed release 02-08 00:00: 00 Yes [id number] gerd 1 tablet DAILY 1 tablet DAILY (route: oral) Med Classific ation: Gastroint estinal Therapy Agents Aldactone 100 mg tablet 02-08 00:00: 00 Yes [id number] BP 1 tablet DAILY 1 tablet DAILY (route: oral) Med Classific ation: Cardiovas cular Therapy Agents aspirin 81 mg tablet,shayna yed release 02-08 00:00: 00 Yes [id number] ANTICOAGULA NT 1 tablet DAILY 1 tablet DAILY (route: oral) Med Classific ation: Hematolog ical Agents ceftriaxone 2 gram intravenous solution 02-08 00:00: 00 03-08 23:59 :00 No [id number] CERVICAL OSTEOMYELIT IS 2 g DAILY 2 g DAILY (route: intravenou s) Med Classific ation: Anti-Infe ctive Agents Coreg 6.25 mg tablet 02-08 00:00: 00 Yes [id number] BP 1 tablet 2 TIMES DAILY 1 tablet 2 TIMES DAILY (route: oral) Med Classific ation: Cardiovas cular Therapy Agents lactulose 10 gram/15 mL (15 mL) oral solution 02-08 00:00: 00 Yes [id number] LAXATIVE 15 mL NEEDED 15 mL NEEDED (route: oral) Med Classific ation: Gastroint estinal Therapy Agents Lasix 40 mg tablet 02-08 00:00: 00 Yes [id number] DIURETIC 1 tablet DAILY 1 tablet DAILY (route: oral) Med Classific ation: Cardiovas cular Therapy Agents midodrine 10 mg tablet 02-08 00:00: 00 Yes [id number] BP 1 tablet 3 TIMES DAILY 1 tablet 3 TIMES DAILY (route: oral) Med Classific ation: Cardiovas cular Therapy Agents Novolog FlexPen U-100 Insulin aspart 100 unit/mL (3 mL) subcutaneou s 02-08 00:00: 00 Yes [id number] DM2 Per instruc tions BEFORE MEALS Per instructio ns BEFORE MEALS (route: subcutaneo us) Med Classific ation: Endocrine pantoprazol e 40 mg tablet,shayna yed release 02-08 00:00: 00 Yes [id number] REFLUX 1 tablet DAILY 1 tablet DAILY (route: oral) Med Classific ation: Gastroint estinal Therapy Agents Tresiba FlexTouch U-100 insulin 100 unit/mL (3 mL) subcutaneou s pen 02-08 00:00: 00 Yes [id number] DM2 10 unit BEDTIME 10 unit BEDTIME [...] PATIENT REPORTED WEIGHT AND NOTIFY CM / HARDBOARD PANEL PRINTER FOR MD NOTIFICATION FOR SIGNS AND SYMPTOMS [...] PATIENT REPORTED WEIGHT AND NOTIFY CM / HARDBOARD PANEL PRINTER FOR MD NOTIFICATION FOR SIGNS AND SYMPTOMS [...] End Date/Time Encounter Type Admission Type Attending [facility] Care Department Encounter ID Discharge Date Discharge Status Discharge Condition Discharge Reason Percent Goals Met 2023-01-14 00:00:00 2023-03-12 00:00:00 Outpatient GRETA DELGADO [facility] [id number] 2023-03-12 00:00:00 DISCHARGE TO HOME OR SELF CARE INDEPENDEN T IN THE COMM[facility]ITY HH OR [facility]- GOALS MET 100.00
--- OUTSIDE RECORDS SUMMARY | 2024-08-29 07:40 | XMS_ITS | Clinical Summary ---
Author Organization Unknown Care Team Providers [facility] As[facility]er Name Role Phone RYAN TAPIA, LEI Unavailable Unavailable AUSTIN RN, NEYDA Unavailable Unavailable GUZMAN RN, GUILLERMO Unavailable Unavailable NORMA THORNE, RAPHAEL Unavailable Unavailable Payers Payer Name Policy Type Policy Number Effective Date Expira tion Date [place]IC[place] - [place] [id number] [facility] [id number] Problems Condition Name Condition Details Condition Category [...] 11-12 00:00: 00 ATHSCL HEART DISEASE OF [place] CORONARY ARTERY W/O ANG PCTRS Active 11-12 [...] 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 11-12 00:00: 00 DETENTION (CURRENT) USE OF ASPIRIN Active 11-12 00:00: 00 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 DRUGS Active 11-12 00:00: 00 DETENTION (CURRENT) USE OF INSULIN Active 11-12 00:00: [...] 10-21 00:00: 00 02-01 23:59 :00 No [id number] Per instruc tions AT BEDTIME Per instructio ns AT BEDTIME (route: subcutaneo us) Med Classific ation: Endocrine bethanechol chloride 25 mg tablet 10-18 00:00: 00 04-25 00:00 :00 No [id number] Per instruc tions TWICE DAILY Per instructio ns TWICE DAILY (route: oral) Med Classific ation: Genitouri nary Therapy Farxiga 10 mg tablet 2-04 00:00: 00 08-01 23:59 :00 No [id number] Per instruc tions DAILY Per instructio ns DAILY (route: oral) Med Classific ation: Endocrine ezetimibe 10 mg tablet 1-30 00:00: 00 08-01 23:59 :00 No [id number] Unavailable Per instruc tions DAILY Per instructio ns DAILY (route: oral) Med Classific ation: Cardiovas cular Therapy Agents Novolog FlexPen U-100 Insulin aspart 100 unit/mL (3 mL) subcutane s 1- 00:00: 00 03-21 23:59 :00 No [id number] Per instruc tions 3 TIMES DAILY Per instructio ns 3 TIMES DAILY (route: subcutaneo us) Med Classific ation: Endocrine Basaglar KwikPen U-100 Insulin 100 unit/mL (3 mL) [facility] 1-25 00:00: 00 11-12 23:59 :00 No [id number] Unavailable Per instruc tions SUBCUTANEO US ONCE EVERY Per instructio ns SUBCUTANEO US ONCE EVERY (route: subcutaneo us) Med Classific ation: Endocrine alprazolam 0.5 mg tablet 1-22 00:00: 00 02-01 23:59 :00 No [id number] Unavailable Per instruc tions TWICE DAILY NEEDED Per instructio ns TWICE DAILY NEEDED (route: oral) Med Classific ation: Central Nervous System Agents aspirin 81 mg tablet,shayna yed release - 00:00: 00 04-25 23:59 :00 No [id number] 1 tablet DAILY 1 tablet DAILY (route: oral) Med Classific ation: Hematolog ical Agents atorvastati n 80 mg tablet 3- 00:00: 00 04-25 23:59 :00 No [id number] 1 tablet BEDTIME 1 tablet BEDTIME (route: oral) Med Classific ation: Cardiovas cular Therapy Agents carvedilol 6.25 mg tablet 11-12 00:00: 00 03-01 23:59 :00 No [id number] 1 tablet 2 TIMES DAILY 1 tablet 2 TIMES DAILY (route: oral) Med Classific ation: Cardiovas cular Therapy Agents finasteride 5 mg tablet 11-12 00:00: 00 08-01 23:59 :00 No [id number] 1 tablet DAILY 1 tablet DAILY (route: oral) Med Classific ation: Genitouri nary Therapy Flomax 0.4 mg capsule 11-12 00:00: 00 08-01 23:59 :00 No [id number] 1 capsule DAILY 1 capsule DAILY (route: oral) Med Classific ation: Genitouri nary Therapy gabapentin 400 mg capsule 11-12 00:00: 00 02-01 23:59 :00 No [id number] 1 capsule 2 TIMES DAILY 1 capsule 2 TIMES DAILY (route: oral) Med Classific ation: Central Nervous System Agents iron 325 mg (65 mg iron) tablet 11-12 00:00: 00 08-01 23:59 :00 No [id number] 1 tablet DAILY 1 tablet DAILY (route: oral) Med Classific ation: Electroly te Balance-N utritiona l Products pantoprazol e 40 mg tablet,shayna yed release 11-12 00:00: 00 08-01 23:59 :00 No [id number] 1 tablet DAILY 1 tablet DAILY (route: oral) Med Classific ation: Gastroint estinal Therapy Agents spironolact one 50 mg tablet 11-12 00:00: 00 02-01 23:59 :00 No [id number] 1 tablet DAILY 1 tablet DAILY (route: oral) Med Classific ation: Cardiovas cular Therapy Agents Trulicity 0.75 mg/0.5 mL subcutaneou s pen injector 11-12 00:00: 00 08-01 23:59 :00 No [id number] 0.5 mL WEEKLY 0.5 mL WEEKLY (route: subcutaneo us) Med Classific ation: Endocrine Vitamin B-12 500 mcg tablet 11-12 00:00: 00 02-01 00:00 :00 No [id number] 2 tablet BEDTIME 2 tablet BEDTIME (route: oral) Med Classific ation: Electroly te Balance-N utritiona l Products alprazolam 0.5 mg tablet 02-08 00:00: 00 04-25 23:59 :00 No [id number] 1 tablet 2 TIMES DAILY 1 tablet 2 TIMES DAILY (route: oral) Med Classific ation: Central Nervous System Agents bumetanide 1 mg tablet 02-01 00:00: 00 02-17 23:59 :00 No [id number] 1 mg DAILY 1 mg DAILY (route: oral) Med Classific ation: Cardiovas cular Therapy Agents ciprofloxac in 500 mg tablet 02-01 00:00: 00 02-02 23:59 :00 No [id number] 1 tablet DAILY 1 tablet DAILY (route: oral) Med Classific ation: Anti-Infe ctive Agents cyanocobala min (vit B-12) 500 mcg tablet 02-01 00:00: 00 08-01 23:59 :00 No [id number] 2 tablet BEDTIME 2 tablet BEDTIME (route: oral) Med Classific ation: Electroly te Balance-N utritiona l Products gabapentin 400 mg capsule 02-08 00:00: 00 04-25 23:59 :00 No [id number] 1 capsule 2 TIMES DAILY 1 capsule 2 TIMES DAILY (route: oral) Med Classific ation: Central Nervous System Agents lactulose 20 gram/30 mL oral solution 02-01 00:00: 00 04-25 23:59 :00 No [id number] 45 mL 3 TIMES DAILY 45 mL 3 TIMES DAILY (route: oral) Med Classific ation: Gastroint estinal Therapy Agents Tresiba FlexTouch U-100 insulin 100 unit/mL (3 mL) subcutaneou s pen 02-01 00:00: 00 08-01 23:59 :00 No [id number] 6 unit BEDTIME 6 unit BEDTIME (route: subcutaneo us) Med Classific ation: Endocrine bumetanide 1 mg tablet 02-17 00:00: 00 02-21 23:59 :00 No [id number] 2 tablet DAILY 2 tablet DAILY (route: oral) Med Classific ation: Cardiovas cular Therapy Agents bumetanide 1 mg tablet 02-17 00:00: 00 03-01 23:59 :00 No [id number] 1 tablet 2 TIMES DAILY 1 tablet 2 TIMES DAILY (route: oral) Med Classific ation: Cardiovas cular Therapy Agents spironolact one 25 mg tablet 03-01 00:00: 00 04-25 00:00 :00 No [id number] 2 tablet DAILY 2 tablet DAILY (route: oral) Med Classific ation: Cardiovas cular Therapy Agents torsemide 20 mg tablet 03-01 00:00: 00 04-25 00:00 :00 No [id number] 2 tablet DAILY 2 tablet DAILY (route: oral) Med Classific ation: Cardiovas cular Therapy Agents midodrine 10 mg tablet 03-01 00:00: 00 08-01 23:59 :00 No [id number] 1 tablet DIRECTED 1 tablet DIRECTED (route: oral) Med Classific ation: Cardiovas cular Therapy Agents Humulin R Regular U-100 Insulin 100 unit/mL injection solution 03-21 00:00: 00 04-25 00:00 :00 No [id number] 20 unit 3 TIMES DAILY 20 unit 3 TIMES DAILY (route: injection) Med Classific ation: Endocrine Basaglar KwikPen U-100 Insulin 100 unit/mL (3 mL) [facility] 04-25 00:00: 00 08-01 23:59 :00 No [id number] 1 unit 3 TIMES DAILY 1 unit 3 TIMES DAILY (route: subcutaneo us) Med Classific ation: Endocrine bumetanide 1 mg tablet 04-25 00:00: 00 08-01 23:59 :00 No [id number] 1 tablet DAILY 1 tablet DAILY (route: oral) Med Classific ation: Cardiovas cular Therapy Agents spironolact one 25 mg tablet 04-25 00:00: 00 08-01 23:59 :00 No [id number] 1 tablet DAILY 1 tablet DAILY (route: oral) Med Classific ation: Cardiovas cular Therapy Agents atorvastati n 80 mg tablet 04-26 00:00: 00 08-01 23:59 :00 No [id number] 0.5 tablet BEDTIME 0.5 tablet BEDTIME (route: oral) Med Classific ation: Cardiovas cular Therapy Agents carvedilol 6.25 mg tablet 04-26 00:00: 00 08-01 23:59 :00 No [id number] 1 tablet 2 TIMES DAILY 1 tablet 2 TIMES DAILY (route: oral) Med Classific ation: Cardiovas cular Therapy Agents alprazolam 0.5 mg tablet 04-26 00:00: 00 08-01 23:59 :00 No [id number] 1 tablet 2 TIMES DAILY 1 tablet 2 TIMES DAILY (route: oral) Med Classific ation: Central Nervous System Agents gabapentin 300 mg capsule 04-26 00:00: 00 08-01 23:59 :00 No [id number] 1 capsule 2 TIMES DAILY 1 capsule 2 TIMES DAILY (route: oral) Med Classific ation: Central Nervous System Agents cyanocobala min (vit B-12) 500 mcg tablet 04-26 00:00: 00 08-01 23:59 :00 No [id number] 2 tablet BEDTIME 2 tablet BEDTIME (route: oral) Med Classific ation: Electroly te Balance-N utritiona l Products lactulose 10 gram/15 mL oral solution 04-26 00:00: 00 08-01 23:59 :00 No [id number] 30 mL 2 TIMES DAILY 30 mL [...] CARE WILL BE ESTABLISHED THAT MEETS PATIENT'S [facility] NEEDS AND INCLUDES PATIENT GOAL FOR HOME [...] End Date/Time Encounter Type Admission Type Attending [facility] Care Facility Care Department Encounter ID Discharge Date Discharge Status Discharge Condition Discharge Reason Percent Goals Met 2023-11-13 00:00:00 2024-05-10 00:00:00 Outpatient [facility] RAPHAEL GRE[facility] [id number] 2024-05-10 00:00:00 DISCHARGED /TRANSFERR ED TO A [facility] REMAINS INPATIENT AT TIME OF DISCHARGE REMAINS IN INPATIENT FACILITY AT END OF CERT PERIOD 75.76
== END 2024-08-29 07:38 | disposition home or self-care (01) ==
LOC: HO.LHD 07:37
PROVIDERS: Visit Provider Internal Medicine Medical Oncology
DX: Z13.89 Encounter for screening for other disorder (principal)

== ENCOUNTER 2024-08-31 08:22 | Outpatient (REF) | payer MEDICARE, SELFPAY ==
[2024-08-31 11:02] LABS: MANUAL DIFF FLAG NO
[2024-08-31 11:30] LABS: Basophils Absolute Auto 0.1 X10*3/uL (0.0-0.2); Basophils Percent Auto 0.9 % (0-2); Eosinophils Absolute Auto 0.1 X10*3/uL (0.0-0.4); Eosinophils Percent Auto 2.5 % (0-4); Hematocrit 21.8 % (42.0-52.0); Imm Gran Abs Auto 0.05 X10*3/uL (0.00-0.03); Imm Gran Pct Auto 0.9 % (0.0-0.4); Lymphocytes Absolute Auto 0.4 X10*3/uL (1.2-4.9); Lymphocytes Percent Auto 7.2 % (20-40); Mean Corpuscular HGB Conc 30.7 g/dl (31.0-36.0); Mean Corpuscular Volume 91.2 fL (80.0-98.0); Mean Platelet Volume 11.3 fL (9.4-12.4); Monocytes Absolute Auto 0.9 X10*3/uL (0.1-1.2); Monocytes Percent Auto 15.6 % (2-11); Neutrophils Absolute Auto 4.1 x10*3/uL (2.0-8.3); Neutrophils Percent Auto 72.9 % (45-73); Platelet Count 134 X10*3/uL (160-400); Red Blood Count 2.39 X10*6/uL (4.60-5.80); Red Cell Distribution Width 17.6 % (11.0-16.0); White Blood Count 5.6 X10*3/uL (4.8-10.8)
[2024-08-31 11:46] LABS: Hemoglobin 6.7 g/dl (14.0-18.0)
== END 2024-08-31 08:23 | disposition home or self-care (01) ==
LOC: HO.LHD 08:22
PROVIDERS: Visit Provider Internal Medicine Medical Oncology
DX: D64.9 Anemia, unspecified (principal)
CPT/HCPCS: 36415; 85025

== ENCOUNTER 2024-09-01 05:29 | Emergency (ER) | payer MEDICARE, SELFPAY ==
[2024-09-01] VITALS (10 sets, daily range): BP systolic 95–116; BP diastolic 32–60; PULSE 62–78; RESP 16–18; TEMP 36.6–37; O2SAT 91–99; BMI 27.6
--- NOTE | 2024-09-01 | ECG_ITS ---
Test Reason : FALL Blood Pressure : / mmHG Vent. Rate : 073 BPM Atrial Rate : 073 BPM P-R Int : 262 ms QRS Dur : 116 ms QT Int : 412 ms P-R-T Axes : 068 -43 110 degrees QTc Int : 453 ms Atrial-sensed ventricular-paced rhythm with prolonged AV conduction Abnormal ECG When compared with ECG of 14-APR-2024 11:21, Vent. rate has increased BY 9 BPM Referred By: Generic ED Physician Electronically Signed By:TRAY CARLSON
[2024-09-01 05:50] LABS: Venous Blood Gas Refer to POC result
[2024-09-01 05:51] LABS: Basophils Percent Auto 0.6 % (0-2); Eosinophils Absolute Auto 0.1 X10*3/uL (0.0-0.4); Eosinophils Percent Auto 2.3 % (0-4); Imm Gran Abs Auto 0.05 X10*3/uL (0.00-0.03); Imm Gran Pct Auto 1.1 % (0.0-0.4); Lymphocytes Absolute Auto 0.4 X10*3/uL (1.2-4.9); Lymphocytes Percent Auto 8.5 % (20-40); MANUAL DIFF FLAG NO; Mean Corpuscular Hemoglobin 27.8 pg (27.0-33.0); Mean Corpuscular Volume 89.8 fL (80.0-98.0); Mean Platelet Volume 11.1 fL (9.4-12.4); Monocytes Absolute Auto 0.8 X10*3/uL (0.1-1.2); Monocytes Percent Auto 16.8 % (2-11); Neutrophils Absolute Auto 3.3 x10*3/uL (2.0-8.3); Neutrophils Percent Auto 70.7 % (45-73); Platelet Count 128 X10*3/uL (160-400); Red Blood Count 2.05 X10*6/uL (4.60-5.80); White Blood Count 4.7 X10*3/uL (4.8-10.8)
--- NOTE | 2024-09-01 05:52 | ED_ITS ---
HPI - Fall General Chief Complaint: Dyspnea Stated Complaint: Fall with headstrike/hypoxic Time Seen by Provider: 09/01/24 05:51 Source: patient Mode of arrival: EMS Limitations: no limitations History of Present Illness ED Provider: HPI Narrative: Patient's history of chronic iron deficiency anemia getting blood transfusion every 2 weeks for last 1 year was apparently getting up from the recliner lost balance and slid down landing on his buttocks no head injury no neck pain no loss of consciousness patient called the EMS to help him Motrin getting up also has superficial skin tear on the right elbow patient has had the labs done yesterday which showed hemoglobin of 6.7 supposed to get 2 units of transfusion today no back pain no chest pain or palpitation no neck pain patient was able to stand up after EMS came with help patient denied any melena or bleeding from any site Related Data Home Medications ?Medication ?Instructions ?Recorded ?Confirmed lactulose 10 gram/15 mL oral 30 ml PO BID 04/14/24 08/24/24 solution insulin degludec 100 unit/mL (3 6 unit subcut BEDTIME 08/17/24 08/24/24 mL) subcutaneous pen (Tresiba FlexTouch U-100 insulin) Previous Rx's ?Medication ?Instructions ?Recorded blood pressure test kit-large #1 ea 11/21/21 flash glucose scanning reader #1 ea 10/03/22 (FreeStyle Marleni 14 Day [place]) flash glucose sensor (FreeStyle #2 ea 10/03/22 Marleni 14 Day Sensor kit) lancets 28 gauge (FreeStyle #100 ea 10/21/23 Lancets) blood-glucose meter (FreeStyle #1 ea 03/09/24 Lite Meter kit) pen needle, diabetic 32 gauge x #150 ea 03/09/24 (BD Gifty 2nd Gen Pen Needle) pen needle, diabetic 32 gauge x #50 ea 03/09/24 (BD Ultra-Fine Gifty Pen Needle) blood-glucose meter (Prodigy #1 ea 03/22/24 Pocket Meter kit) tamsulosin 0.4 mg capsule 0.4 mg PO DAILY 90 days #90 caps 05/04/24 insulin lispro 100 unit/mL 1 sliding scale dose subcut TID 30 05/23/24 subcutaneous pen (Admelog SoloStar days #15 mL U-100 Insulin lispro) finasteride 5 mg tablet (Proscar) 5 mg PO DAILY 90 days #90 tabs 06/06/24 gabapentin 300 mg capsule 300 mg PO BID 30 days #60 caps 06/06/24 dulaglutide 0.75 mg/0.5 mL 0.75 mg (0.5 mL) subcut MO #2 mL 06/13/24 subcutaneous pen injector (Trulicity) ferrous sulfate 325 mg (65 mg 325 mg PO DAILY #90 tabs 06/24/24 iron) tablet,delayed release carvedilol 6.25 mg tablet 6.25 mg PO BID 30 days #60 tabs 06/30/24 ezetimibe 10 mg tablet (Zetia) 10 mg PO DAILY #30 tabs 06/30/24 dapagliflozin propanediol 10 mg 10 mg PO DAILY 30 days #30 tabs 07/07/24 tablet (Farxiga) pantoprazole 40 mg tablet,delayed 40 mg PO DAILY #30 tabs 07/07/24 release alprazolam 0.5 mg tablet 0.5 mg PO BID PRN Anxiety 30 days 07/25/24 #60 tabs diclofenac sodium 1 % topical gel 2 g topical QID #100 grams 08/13/24 rifaximin 550 mg tablet 550 mg PO BID 90 days #180 tabs 08/23/24 blood sugar diagnostic (FreeStyle #100 ea 08/26/24 Test strips) bumetanide 2 mg tablet 2 mg PO DAILY 30 days #30 tabs 08/26/24 cyanocobalamin (vitamin B-12) 500 1,000 mcg (2 x 500 mcg) PO BEDTIME 08/26/24 mcg tablet #90 tabs midodrine 10 mg tablet 10 mg PO TID hypotension 30 days 08/26/24 #90 tabs spironolactone 25 mg tablet 25 mg PO DAILY 30 days #30 tabs 08/26/24 blood sugar diagnostic (Prodigy No #50 ea 08/29/24 Coding strips) atorvastatin 80 mg tablet 40 mg (1/2 x 80 mg) PO BEDTIME #90 08/30/24 tabs Allergies Allergy/AdvReac Type Severity Reaction Status Date / Time KARL Inhibitors Allergy Severe Angioedema Verified 09/01/24 05:53 dextran 40 [DEXTRAN 40] Allergy Intermediate tachycardia Verified 09/01/24 05:53 latex [LATEX] Allergy Mild BLISTERS Verified 09/01/24 05:53 lisinopril [From Zestril] Allergy Mild Unknown Verified 09/01/24 05:53 Iodinated Contrast Media Allergy Unknown UNKNOWN Verified 09/01/24 05:53 [CONTRAST,IV] Review of Systems 2 Review of Systems: Yes all other systems are reviewed and are negative [facility] Past Medical History Medical History CKD stage 4 due to type 2 diabetes mellitus Heart failure Cirrhosis of liver without ascites Cognitive impairment DMII (diabetes mellitus, type 2) Hyperglycemia Symptomatic anemia Difficulty walking Anemia 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 Streptococcal bacteremia Fracture of left humerus History of prostate cancer Acute lower gastrointestinal bleeding COVID-19 vaccine series completed Hypertension Dyslipidemia Diabetic nephropathy associated with type 2 diabetes mellitus Diabetic 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 associated with type 2 diabetes mellitus residential (current) use of insulin Diabetes type 2, uncontrolled Varices of esophagus determined by endoscopy Esophageal varices without bleeding KOEHLER (dyspnea on exertion) Chronic fatigue Iron deficiency anemia CAD (coronary artery disease) ANUJA on CPAP Prostate cancer Spinal stenosis On beta kayy at home IBS (irritable colon syndrome) Aortic stenosis HTN (hypertension) Polyneuropathy GERD (gastroesophageal reflux disease) Surgical History S/P infectious endocarditis H/O cataract extraction Hx of endoscopy History of colonoscopy Hx of esophagogastroduodenoscopy Hx of colonoscopy History of surgery History of transurethral resection of prostate History of surgery History of heart artery stent Family History Family History Father CVD (cardiovascular disease) Past heart attack Mother CVD (cardiovascular disease) Brain cancer Heart problem Daughter Breast cancer Sister Breast cancer Son Alive and well Family/Other Myocardial infarction Liver cancer Social History Social History Household Members: Spouse Household Members Other:: Myesha Housing: House Are you a primary special needs caregiver to a significant other at home: No Do you presently have visiting nurse or other home services: Yes Alcohol intake: never Patient Tobacco Use Status: Never used Tobacco Smoked in Last 30 Days: No e-Cigarette/Vaping Use: Never Used Second Hand Smoke Exposure: No Use of substances other than those prescribed or required for medical reasons: No Advance Directives: Yes Advance Directives on File: Yes Advance Directives Date on File: 08/31/23 Do you have a plan to hurt others: No Plan service: No Current occupational status: retired Cognitive needs: No Hearing needs: No Vision needs: Yes Physical Exam 2 Vital Signs: Vital Signs: Last Vital Signs Temp 98.6 F 09/01/24 05:48 Pulse 72 09/01/24 05:48 Resp 18 09/01/24 05:48 BP 104/35 L 09/01/24 05:48 Pulse Ox 98 09/01/24 05:48 O2 Del Method Nasal Cannula 09/01/24 05:48 Oxygen Flow Rate 3 09/01/24 05:48 BMI result Body Mass Index 27.6 Appearance: Alert. Oriented X3. No acute distress. Eyes: PERRLA, No Nystagmus pallor+++ HEENT: Pharynx normal. Oral Mucosa moist atraumatic normocephalic Neck: Normal inspection. Neck supple. No midline tenderness CVS: Normal heart rate and rhythm. Pulses normal. Respiratory: No respiratory distress. Equal air entry bilateral, no wheezing/rales/rhonchi Abdomen: Soft and nontender. Bowel sounds are present, no mass palpable, no CVA tenderness Skin: Skin warm and dry. Normal skin color. Normal skin turgor. Extremities: 3+ lower extremity edema. No calf tenderness superficial skin tear right elbow hip/pelvis stable 2+ leg edema Neuro: Oriented X 3. No motor deficit. No sensory deficit.No cerebellar signs , cranial nerves II-XII intact Medical Decision Making Medical Decision Making [facility] Narrative: Patient came with status post mechanical fall with no significant injuries with history of significant anemia no lightheadedness/dizziness or chest pain patient denied any head strike no neck pain no loss of consciousness patient is able to stand up after the fall but came here because the skin tear and was scheduled to get 2 units of blood transfusion today patient is saturating 95% at room air alert oriented x3 Differential Diagnosis Differential Diagnoses: The differential diagnosis associated with the presentation includes Lab Data [facility] Lab Attestation statement: I reviewed the patient's lab results. 09/01/24 05:42 09/01/24 05:42 Labs: Lab Results 09/01/24 09/01/24 09/01/24 Range/Units 05:42 05:49 06:10 WBC 4.7 L (4.8-10.8) X10*3/uL RBC 2.05 L (4.60-5.80) X10*6/uL Hgb 5.7 L* (14.0-18.0) g/dl Hct 18.4 L* (42.0-52.0) % MCV 89.8 (80.0-98.0) fL MCH 27.8 (27.0-33.0) pg MCHC 31.0 (31.0-36.0) g/dl RDW 18.0 H (11.0-16.0) % Plt Count 128 L (160-400) X10*3/uL MPV 11.1 (9.4-12.4) fL Immature Gran % (Auto) 1.1 H (0.0-0.4) % Neut % (Auto) 70.7 (45-73) % Lymph % (Auto) 8.5 L (20-40) % [place] % (Auto) 16.8 H (2-11) % Eos % (Auto) 2.3 (0-4) % Baso % (Auto) 0.6 (0-2) % Lymph # (Auto) 0.4 L (1.2-4.9) X10*3/uL [place] # (Auto) 0.8 (0.1-1.2) X10*3/uL Eos # (Auto) 0.1 (0.0-0.4) X10*3/uL Baso # (Auto) 0.0 (0.0-0.2) X10*3/uL Abs Immat Gran (auto) 0.05 H (0.00-0.03) X10*3/uL Absolute Neuts (auto) 3.3 (2.0-8.3) x10*3/uL Absolute Nucleated RBC 0.000 (0.0-0.012) X10*3/uL Nucleated RBC % (auto) 0.0 (0.0-0.2) /100WBC VBG pH 7.37 (7.32-7.43) VBG pCO2 44 mmHg VBG pO2 57 mmHg VBG HCO3 26 (22-26) mmol/L VBG O2 Saturation 84.0 % VBG Base Excess 1.2 mmol/L Sodium 136 (135-145) mmol/L Potassium 5.7 H D (3.3-5.1) mmol/L Chloride 104 (96-108) mmol/L Carbon Dioxide 22 (22-29) mmol/L Anion Gap 16 (12-20) BUN 54 H (9-16) mg/dL Creatinine 2.22 H (0.5-1.4) mg/dL Estim Creat Clear Calc TNP Estimated GFR 29 Random Glucose 187 H (60-115) mg/dL Calcium 7.7 L D (8.4-10.2) mg/dL Total Bilirubin 0.7 (0.0-1.0) mg/dL AST 38 H (5-37) U/L ALT 21 (0-40) U/L Alkaline Phosphatase 175 H (39-117) U/L B-Natriuretic Peptide 801 H (<100) pg/mL Total Protein 6.0 L (6.5-8.0) g/dL Albumin 2.6 L (3.5-5.0) g/dL Blood Type A Positive Antibody Screen NEGATIVE Crossmatch See Detail Discharge Plan Discharge Clinical Impression: Fall, Severe anemia Patient Disposition: Still a Patient Instructions: Anemia (ED), Fall Prevention (ED) Additional Instructions: Care and cautions as advised Follow up with your PCP/account [facility] You have received 2 units of blood transfusion during stay in the ER Prescriptions: No Action (DME) FreeStyle Marleni 14 Day [place] Misc See Rx Instructions .Route Qty: 1 0RF Rx Instructions: As directed (DME) FreeStyle Marleni 14 Day Sensor Kit See Rx Instructions .Route Qty: 2 2RF Rx Instructions: As directed (DME) blood-glucose meter [FreeStyle Lite Meter] Kit See Rx Instructions .Route Qty: 1 0RF Rx Instructions: As directed (DME) pen needle, diabetic [BD Gifty 2nd Gen Pen Needle] 32 gauge x 5/32 needle See Rx Instructions .MEDSUPPLY Qty: 150 5RF Rx Instructions: 4 times a day (DME) pen needle, diabetic [BD Ultra-Fine Gifty Pen Needle] 32 gauge x 5/32 needle See Rx Instructions .ROUTE .MEDSUPPLY Qty: 50 3RF Rx Instructions: As directed (DME) blood-glucose meter [Prodigy Pocket Meter] Kit See Rx Instructions .Route Qty: 1 0RF Rx Instructions: Testing three times per day tamsulosin 0.4 mg capsule 0.4 mg PO DAILY 90 Days Qty: 90 1RF insulin lispro [Admelog SoloStar U-100 Insulin] 100 unit/mL insulin pen 1 sliding scale dose subcut TID 30 Days Qty: 15 6RF Rx Instructions: BG <111 0 units, 111-150 - 0 units, 151-200 2 units, 201-250 4 units, 251-300 6 units, 301-350 8 units, >350 10 units finasteride [Proscar] 5 mg tablet 5 mg PO DAILY 90 Days Qty: 90 1RF gabapentin 300 mg capsule 300 mg PO BID 30 Days Qty: 60 3RF Trulicity 0.75 mg/0.5 mL pen injector 0.75 mg SUBCUT MO Qty: 2 3RF ferrous sulfate 325 mg (65 mg iron) tablet,delayed release (DR/EC) 325 mg PO DAILY Qty: 90 0RF carvedilol 6.25 mg tablet 6.25 mg PO BID 30 Days Qty: 60 3RF Rx Instructions: must administer with a meal/food ezetimibe [Zetia] 10 mg tablet 10 mg PO DAILY Qty: 30 3RF Farxiga 10 mg tablet 10 mg PO DAILY 30 Days Qty: 30 3RF pantoprazole 40 mg tablet,delayed release (DR/EC) 40 mg PO DAILY Qty: 30 3RF alprazolam 0.5 mg tablet 0.5 mg PO BID PRN (Reason: Anxiety) 30 Days Qty: 60 1RF rifaximin 550 mg tablet 550 mg PO BID 90 Days Qty: 180 1RF midodrine 10 mg tablet 10 mg PO TID 30 Days Qty: 90 0RF Rx Instructions: do not give last dose of day after 6PM or within 4 hrs of bedtime cyanocobalamin (vitamin B-12) 500 mcg tablet 1,000 mcg PO BEDTIME Qty: 90 0RF spironolactone 25 mg tablet 25 mg PO DAILY 30 Days Qty: 30 0RF bumetanide 2 mg tablet 2 mg PO DAILY 30 Days Qty: 30 0RF (DME) FreeStyle Test Strip See Rx Instructions .Route Qty: 100 3RF Rx Instructions: three times per day (DME) Prodigy No Coding Strip See Rx Instructions .Route Qty: 50 6RF Rx Instructions: Test 3 times a day atorvastatin 80 mg tablet 40 mg PO BEDTIME Qty: 90 0RF diclofenac sodium 1 % gel 2 g topical QID Qty: 100 0RF Rx Instructions: apply to single elbow, wrist or hand; for hand includes palm/fingers/back of hand lactulose 10 gram/15 mL solution 30 ml PO BID insulin degludec [Tresiba FlexTouch U-100] 100 unit/mL (3 mL) insulin pen 6 unit subcut BEDTIME (DME) lancets [FreeStyle Lancets] 28 gauge misc See Rx Instructions .Route Qty: 100 6RF Rx Instructions: As directed three times per day (DME) blood pressure test kit-large Kit See Rx Instructions .Route Qty: 1 0RF Rx Instructions: As directed Referrals: Roberto Carlos Cisneros PA-C [Primary Care Provider] - 1 Week Print Language: Yoruba
[2024-09-01 05:54] LABS: VBG Base Excess 1.2 mmol/L; VBG HCO3 26 mmol/L (22-26); VBG pCO2 44 mmHg; VBG pH 7.37 (7.32-7.43); VBG pO2 57 mmHg
[2024-09-01 05:57] LABS: Hematocrit 18.4 % (42.0-52.0); Hemoglobin 5.7 g/dl (14.0-18.0)
[2024-09-01 06:06] LABS: Alanine Aminotransferase 21 U/L (0-40); Albumin Level 2.6 g/dL (3.5-5.0); Alkaline Phosphatase 175 U/L (39-117); Anion Gap 16 (12-20); Aspartate Amino Transferase 38 U/L (5-37); Bilirubin Total 0.7 mg/dL (0.0-1.0); Blood Urea Nitrogen 54 mg/dL (9-16); Calcium 7.7 mg/dL (8.4-10.2); Carbon Dioxide 22 mmol/L (22-29); Chloride 104 mmol/L (96-108); Estimated Glomerular Filt Rate 29; Glucose Random 187 mg/dL (60-115); Potassium 5.7 mmol/L (3.3-5.1); Sodium 136 mmol/L (135-145)
[2024-09-01 06:10] LABS: B Type Natriuretic Peptide 801 pg/mL (<100)
--- OUTSIDE RECORDS SUMMARY | 2024-09-01 06:40 | XMS_ITS | Clinical Summary ---
Author Organization Unknown Care Team Providers Care Psychiatric Arnp Name Role Phone RYAN TAPIA, LEI Unavailable Unavailable JOSE THORNE, GRETA Unavailable Unavailable Payers Payer Name Policy Type Policy Number Effective Date Expira tion Date MEDICARE.NGS.PDGM [id number] Problems Condition Name Condition Details Condition Category [...] 02-08 00:00: 00 ATHSCL HEART DISEASE OF [place] CORONARY ARTERY W/O ANG PCTRS Active 09-14 [...] 01-14 00:00: 00 02-08 23:59 :00 No [id number] ANXIETY 1 tablet 2 TIMES DAILY 1 tablet 2 TIMES DAILY (route: oral) Med Classific ation: Central Nervous System Agents atorvastati n 80 mg tablet 01-14 00:00: 00 Yes [id number] CHOLESTEROL 1 tablet DAILY 1 tablet DAILY (route: oral) Med Classific ation: Cardiovas cular Therapy Agents bethanechol chloride 25 mg tablet 01-14 00:00: 00 Yes [id number] BLADDER 1 tablet 2 TIMES DAILY 1 tablet 2 TIMES DAILY (route: oral) Med Classific ation: Genitouri nary Therapy Farxiga 10 mg tablet 01-14 00:00: 00 Yes [id number] DM2 1 tablet DAILY 1 tablet DAILY (route: oral) Med Classific ation: Endocrine finasteride 5 mg tablet 01-14 00:00: 00 Yes [id number] BPH 1 tablet DAILY 1 tablet DAILY (route: oral) Med Classific ation: Genitouri nary Therapy gabapentin 400 mg capsule 01-14 00:00: 00 Yes [id number] NERVE PAIN 1 capsule 3 TIMES DAILY 1 capsule 3 TIMES DAILY (route: oral) Med Classific ation: Central Nervous System Agents insulin aspar prot-insuli n aspart 100 unit/mL (70-30) [facility] 01-14 00:00: 00 01-16 16:23 :30.0 57 No [id number] DM2 2-25 In unit 3 TIMES DAILY 2-25 In unit 3 TIMES DAILY (route: subcutaneo us) Med Classific ation: Endocrine iron 325 mg (65 mg iron) tablet 01-14 00:00: 00 Yes [id number] SUPPLEMENT 1 tablet DAILY 1 tablet DAILY (route: oral) Med Classific ation: Electroly te Balance-N utritiona l Products mecobalamin (vitamin B12) 1,000 mcg chewable tablet 01-14 00:00: 00 Yes [id number] SUPPLEMENT 1 tablet DAILY 1 tablet DAILY (route: oral) Med Classific ation: Electroly te Balance-N utritiona l Products metoprolol succinate ER 100 mg tablet,exte nded release 24 hr 01-14 00:00: 00 02-08 23:59 :00 No [id number] HTN 1 tablet DAILY 1 tablet DAILY (route: oral) Med Classific ation: Cardiovas cular Therapy Agents omeprazole 20 mg capsule,del ayed release 01-14 00:00: 00 02-08 23:59 :00 No [id number] GERD 1 capsule 2 TIMES DAILY 1 capsule 2 TIMES DAILY (route: oral) Med Classific ation: Gastroint estinal Therapy Agents Plavix 75 mg tablet 01-14 00:00: 00 Yes [id number] CLOTING 1 tablet DAILY 1 tablet DAILY (route: oral) Med Classific ation: Hematolog ical Agents tamsulosin 0.4 mg capsule 01-14 00:00: 00 Yes [id number] BPH 1 capsule DAILY 1 capsule DAILY (route: oral) Med Classific ation: Genitouri nary Therapy torsemide 20 mg tablet 01-14 00:00: 00 02-08 23:59 :00 No [id number] EDEMA 1 tablet DAILY 1 tablet DAILY (route: oral) Med Classific ation: Cardiovas cular Therapy Agents tramadol 50 mg tablet 01-14 00:00: 00 Yes [id number] PAIN 0.5 tablet EVERY 6 HOURS 0.5 tablet EVERY 6 HOURS (route: oral) Med Classific ation: Analgesic , Anti-infl ammatory or Antipyret ic Tresiba FlexTouch U-100 insulin 100 unit/mL (3 mL) subcutaneou s pen 01-14 00:00: 00 02-08 23:59 :00 No [id number] DM2 64 In unit DAILY 64 In unit DAILY (route: subcutaneo us) Med Classific ation: Endocrine Trulicity 0.75 mg/0.5 mL subcutaneou s pen injector 01-14 00:00: 00 Yes [id number] DM2 0.5 mL WEEKLY 0.5 mL WEEKLY (route: subcutaneo us) Med Classific ation: Endocrine Zetia 10 mg tablet 01-14 00:00: 00 Yes [id number] CHOLESTEROL 1 tablet DAILY 1 tablet DAILY (route: oral) Med Classific ation: Cardiovas cular Therapy Agents ceftriaxone 1 gram intravenous solution 02-08 00:00: 00 03-08 23:59 :00 No [id number] infection 2 gram DAILY 2 gram DAILY (route: intravenou s) Med Classific ation: Anti-Infe ctive Agents sodium chloride 0.9 % intravenous solution 02-08 00:00: 00 Yes [id number] flush 10 mL DIRECTED 10 mL DIRECTED (route: intravenou s) Med Classific ation: Electroly te Balance-N utritiona l Products heparin, porcine (PF) 10 unit/mL intravenous syringe 02-08 00:00: 00 Yes [id number] flush 5 mL DIRECTED 5 mL DIRECTED (route: intravenou s) Med Classific ation: Hematolog ical Agents carvedilol 6.25 mg tablet 02-08 00:00: 00 Yes [id number] heart 1 tablet 2 TIMES DAILY 1 tablet 2 TIMES DAILY (route: oral) Med Classific ation: Cardiovas cular Therapy Agents Lasix 40 mg tablet 02-08 00:00: 00 Yes [id number] fluid 1 tablet 2 TIMES DAILY 1 tablet 2 TIMES DAILY (route: oral) Med Classific ation: Cardiovas cular Therapy Agents Tresiba U-100 Insulin 100 unit/mL subcutaneou s solution 02-08 00:00: 00 Yes [id number] blood sugar 10 unit BEDTIME 10 unit BEDTIME (route: subcutaneo us) Med Classific ation: Endocrine pantoprazol e 40 mg tablet,shayna yed release 02-08 00:00: 00 Yes [id number] gerd 1 tablet DAILY 1 tablet DAILY (route: oral) Med Classific ation: Gastroint estinal Therapy Agents Aldactone 100 mg tablet 02-08 00:00: 00 Yes [id number] BP 1 tablet DAILY 1 tablet DAILY (route: oral) Med Classific ation: Cardiovas cular Therapy Agents aspirin 81 mg tablet,shayna yed release 02-08 00:00: 00 Yes [id number] ANTICOAGULA NT 1 tablet DAILY 1 tablet DAILY (route: oral) Med Classific ation: Hematolog ical Agents ceftriaxone 2 gram intravenous solution 02-08 00:00: 00 03-08 23:59 :00 No [id number] CERVICAL OSTEOMYELIT IS 2 g DAILY 2 g DAILY (route: intravenou s) Med Classific ation: Anti-Infe ctive Agents Coreg 6.25 mg tablet 02-08 00:00: 00 Yes [id number] BP 1 tablet 2 TIMES DAILY 1 tablet 2 TIMES DAILY (route: oral) Med Classific ation: Cardiovas cular Therapy Agents lactulose 10 gram/15 mL (15 mL) oral solution 02-08 00:00: 00 Yes [id number] LAXATIVE 15 mL NEEDED 15 mL NEEDED (route: oral) Med Classific ation: Gastroint estinal Therapy Agents Lasix 40 mg tablet 02-08 00:00: 00 Yes [id number] DIURETIC 1 tablet DAILY 1 tablet DAILY (route: oral) Med Classific ation: Cardiovas cular Therapy Agents midodrine 10 mg tablet 02-08 00:00: 00 Yes [id number] BP 1 tablet 3 TIMES DAILY 1 tablet 3 TIMES DAILY (route: oral) Med Classific ation: Cardiovas cular Therapy Agents Novolog FlexPen U-100 Insulin aspart 100 unit/mL (3 mL) subcutaneou s 02-08 00:00: 00 Yes [id number] DM2 Per instruc tions BEFORE MEALS Per instructio ns BEFORE MEALS (route: subcutaneo us) Med Classific ation: Endocrine pantoprazol e 40 mg tablet,shayna yed release 02-08 00:00: 00 Yes [id number] REFLUX 1 tablet DAILY 1 tablet DAILY (route: oral) Med Classific ation: Gastroint estinal Therapy Agents Tresiba FlexTouch U-100 insulin 100 unit/mL (3 mL) subcutaneou s pen 02-08 00:00: 00 Yes [id number] DM2 10 unit BEDTIME 10 unit BEDTIME [...] PATIENT REPORTED WEIGHT AND NOTIFY CM / SUPERVISING LAW ENFORCEMENT ANALYST FOR MD NOTIFICATION FOR SIGNS AND SYMPTOMS [...] PATIENT REPORTED WEIGHT AND NOTIFY CM / SUPERVISING LAW ENFORCEMENT ANALYST FOR MD NOTIFICATION FOR SIGNS AND SYMPTOMS [...] End Date/Time Encounter Type Admission Type Attending [facility] Care Department Encounter ID Discharge Date Discharge Status Discharge Condition Discharge Reason Percent Goals Met 2023-01-14 00:00:00 2023-03-12 00:00:00 Outpatient GRETA DELGADO [facility] [id number] 2023-03-12 00:00:00 DISCHARGE TO HOME OR SELF CARE INDEPENDEN T IN THE COMMUNITY HH OR PAL- GOALS MET 100.00
--- OUTSIDE RECORDS SUMMARY | 2024-09-01 06:41 | XMS_ITS | Clinical Summary ---
Author Organization Unknown Care Team Providers Care Service Desk Lead Name Role Phone RYAN TAPIA, LEI Unavailable Unavailable AUSTIN RN, NEYDA Unavailable Unavailable GUZMAN RN, GUILLERMO Unavailable Unavailable NORMA THORNE, RAPHAEL Unavailable Unavailable Payers Payer Name Policy Type Policy Number Effective Date Expira tion Date MEDICARE - NGS [place] [id number] [facility] [id number] Problems Condition Name Condition Details Condition Category [...] 11-12 00:00: 00 ATHSCL HEART DISEASE OF [place] CORONARY ARTERY W/O ANG PCTRS Active 11-12 [...] USE OF ASPIRIN Active 11-12 00:00: 00 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 LAB 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 (CURRENT) USE OF ORAL 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 DRUGS Active [...] 10-21 00:00: 00 02-01 23:59 :00 No [id number] Per instruc tions AT BEDTIME Per instructio ns AT BEDTIME (route: subcutaneo us) Med Classific ation: Endocrine bethanechol chloride 25 mg tablet 10-18 00:00: 00 04-25 00:00 :00 No [id number] Per instruc tions TWICE DAILY Per instructio ns TWICE DAILY (route: oral) Med Classific ation: Genitouri nary Therapy Farxiga 10 mg tablet 2-04 00:00: 00 08-01 23:59 :00 No [id number] Per instruc tions DAILY Per instructio ns DAILY (route: oral) Med Classific ation: Endocrine ezetimibe 10 mg tablet 1-30 00:00: 00 08-01 23:59 :00 No [id number] Unavailable Per instruc tions DAILY Per instructio ns DAILY (route: oral) Med Classific ation: Cardiovas cular Therapy Agents Novolog FlexPen U-100 Insulin aspart 100 unit/mL (3 mL) subcutane s 1- 00:00: 00 03-21 23:59 :00 No [id number] Per instruc tions 3 TIMES DAILY Per instructio ns 3 TIMES DAILY (route: subcutaneo us) Med Classific ation: Endocrine Basaglar KwikPen U-100 Insulin 100 unit/mL (3 mL) [facility] 1-25 00:00: 00 11-12 23:59 :00 No [id number] Unavailable Per instruc tions SUBCUTANEO US ONCE EVERY Per instructio ns SUBCUTANEO US ONCE EVERY (route: subcutaneo us) Med Classific ation: Endocrine alprazolam 0.5 mg tablet 1-22 00:00: 00 02-01 23:59 :00 No [id number] Unavailable Per instruc tions TWICE DAILY NEEDED Per instructio ns TWICE DAILY NEEDED (route: oral) Med Classific ation: Central Nervous System Agents aspirin 81 mg tablet,shayna yed release - 00:00: 00 04-25 23:59 :00 No [id number] 1 tablet DAILY 1 tablet DAILY (route: oral) Med Classific ation: Hematolog ical Agents atorvastati n 80 mg tablet 3- 00:00: 00 04-25 23:59 :00 No [id number] 1 tablet BEDTIME 1 tablet BEDTIME (route: oral) Med Classific ation: Cardiovas cular Therapy Agents carvedilol 6.25 mg tablet 11-12 00:00: 00 03-01 23:59 :00 No [id number] 1 tablet 2 TIMES DAILY 1 tablet 2 TIMES DAILY (route: oral) Med Classific ation: Cardiovas cular Therapy Agents finasteride 5 mg tablet 11-12 00:00: 00 08-01 23:59 :00 No [id number] 1 tablet DAILY 1 tablet DAILY (route: oral) Med Classific ation: Genitouri nary Therapy Flomax 0.4 mg capsule 11-12 00:00: 00 08-01 23:59 :00 No [id number] 1 capsule DAILY 1 capsule DAILY (route: oral) Med Classific ation: Genitouri nary Therapy gabapentin 400 mg capsule 11-12 00:00: 00 02-01 23:59 :00 No [id number] 1 capsule 2 TIMES DAILY 1 capsule 2 TIMES DAILY (route: oral) Med Classific ation: Central Nervous System Agents iron 325 mg (65 mg iron) tablet 11-12 00:00: 00 08-01 23:59 :00 No [id number] 1 tablet DAILY 1 tablet DAILY (route: oral) Med Classific ation: Electroly te Balance-N utritiona l Products pantoprazol e 40 mg tablet,shayna yed release 11-12 00:00: 00 08-01 23:59 :00 No [id number] 1 tablet DAILY 1 tablet DAILY (route: oral) Med Classific ation: Gastroint estinal Therapy Agents spironolact one 50 mg tablet 11-12 00:00: 00 02-01 23:59 :00 No [id number] 1 tablet DAILY 1 tablet DAILY (route: oral) Med Classific ation: Cardiovas cular Therapy Agents Trulicity 0.75 mg/0.5 mL subcutaneou s pen injector 11-12 00:00: 00 08-01 23:59 :00 No [id number] 0.5 mL WEEKLY 0.5 mL WEEKLY (route: subcutaneo us) Med Classific ation: Endocrine Vitamin B-12 500 mcg tablet 11-12 00:00: 00 02-01 00:00 :00 No [id number] 2 tablet BEDTIME 2 tablet BEDTIME (route: oral) Med Classific ation: Electroly te Balance-N utritiona l Products alprazolam 0.5 mg tablet 02-08 00:00: 00 04-25 23:59 :00 No [id number] 1 tablet 2 TIMES DAILY 1 tablet 2 TIMES DAILY (route: oral) Med Classific ation: Central Nervous System Agents bumetanide 1 mg tablet 02-01 00:00: 00 02-17 23:59 :00 No [id number] 1 mg DAILY 1 mg DAILY (route: oral) Med Classific ation: Cardiovas cular Therapy Agents ciprofloxac in 500 mg tablet 02-01 00:00: 00 02-02 23:59 :00 No [id number] 1 tablet DAILY 1 tablet DAILY (route: oral) Med Classific ation: Anti-Infe ctive Agents cyanocobala min (vit B-12) 500 mcg tablet 02-01 00:00: 00 08-01 23:59 :00 No [id number] 2 tablet BEDTIME 2 tablet BEDTIME (route: oral) Med Classific ation: Electroly te Balance-N utritiona l Products gabapentin 400 mg capsule 02-08 00:00: 00 04-25 23:59 :00 No [id number] 1 capsule 2 TIMES DAILY 1 capsule 2 TIMES DAILY (route: oral) Med Classific ation: Central Nervous System Agents lactulose 20 gram/30 mL oral solution 02-01 00:00: 00 04-25 23:59 :00 No [id number] 45 mL 3 TIMES DAILY 45 mL 3 TIMES DAILY (route: oral) Med Classific ation: Gastroint estinal Therapy Agents Tresiba FlexTouch U-100 insulin 100 unit/mL (3 mL) subcutaneou s pen 02-01 00:00: 00 08-01 23:59 :00 No [id number] 6 unit BEDTIME 6 unit BEDTIME (route: subcutaneo us) Med Classific ation: Endocrine bumetanide 1 mg tablet 02-17 00:00: 00 02-21 23:59 :00 No [id number] 2 tablet DAILY 2 tablet DAILY (route: oral) Med Classific ation: Cardiovas cular Therapy Agents bumetanide 1 mg tablet 02-17 00:00: 00 03-01 23:59 :00 No [id number] 1 tablet 2 TIMES DAILY 1 tablet 2 TIMES DAILY (route: oral) Med Classific ation: Cardiovas cular Therapy Agents spironolact one 25 mg tablet 03-01 00:00: 00 04-25 00:00 :00 No [id number] 2 tablet DAILY 2 tablet DAILY (route: oral) Med Classific ation: Cardiovas cular Therapy Agents torsemide 20 mg tablet 03-01 00:00: 00 04-25 00:00 :00 No [id number] 2 tablet DAILY 2 tablet DAILY (route: oral) Med Classific ation: Cardiovas cular Therapy Agents midodrine 10 mg tablet 03-01 00:00: 00 08-01 23:59 :00 No [id number] 1 tablet DIRECTED 1 tablet DIRECTED (route: oral) Med Classific ation: Cardiovas cular Therapy Agents Humulin R Regular U-100 Insulin 100 unit/mL injection solution 03-21 00:00: 00 04-25 00:00 :00 No [id number] 20 unit 3 TIMES DAILY 20 unit 3 TIMES DAILY (route: injection) Med Classific ation: Endocrine Basaglar KwikPen U-100 Insulin 100 unit/mL (3 mL) [facility] 04-25 00:00: 00 08-01 23:59 :00 No [id number] 1 unit 3 TIMES DAILY 1 unit 3 TIMES DAILY (route: subcutaneo us) Med Classific ation: Endocrine bumetanide 1 mg tablet 04-25 00:00: 00 08-01 23:59 :00 No [id number] 1 tablet DAILY 1 tablet DAILY (route: oral) Med Classific ation: Cardiovas cular Therapy Agents spironolact one 25 mg tablet 04-25 00:00: 00 08-01 23:59 :00 No [id number] 1 tablet DAILY 1 tablet DAILY (route: oral) Med Classific ation: Cardiovas cular Therapy Agents atorvastati n 80 mg tablet 04-26 00:00: 00 08-01 23:59 :00 No [id number] 0.5 tablet BEDTIME 0.5 tablet BEDTIME (route: oral) Med Classific ation: Cardiovas cular Therapy Agents carvedilol 6.25 mg tablet 04-26 00:00: 00 08-01 23:59 :00 No [id number] 1 tablet 2 TIMES DAILY 1 tablet 2 TIMES DAILY (route: oral) Med Classific ation: Cardiovas cular Therapy Agents alprazolam 0.5 mg tablet 04-26 00:00: 00 08-01 23:59 :00 No [id number] 1 tablet 2 TIMES DAILY 1 tablet 2 TIMES DAILY (route: oral) Med Classific ation: Central Nervous System Agents gabapentin 300 mg capsule 04-26 00:00: 00 08-01 23:59 :00 No [id number] 1 capsule 2 TIMES DAILY 1 capsule 2 TIMES DAILY (route: oral) Med Classific ation: Central Nervous System Agents cyanocobala min (vit B-12) 500 mcg tablet 04-26 00:00: 00 08-01 23:59 :00 No [id number] 2 tablet BEDTIME 2 tablet BEDTIME (route: oral) Med Classific ation: Electroly te Balance-N utritiona l Products lactulose 10 gram/15 mL oral solution 04-26 00:00: 00 08-01 23:59 :00 No [id number] 30 mL 2 TIMES DAILY 30 mL [...] CARE WILL BE ESTABLISHED THAT MEETS PATIENT'S INTERMEDIATE NEEDS AND INCLUDES PATIENT GOAL FOR HOME [...] Date/Time Encounter Type Admission Type Attending [facility] Care Facility Care Department Encounter ID Discharge Date Discharge Status Discharge Condition Discharge Reason Percent Goals Met 2023-11-13 00:00:00 2024-05-10 00:00:00 [facility] [id number] 2024-05-10 00:00:00 DISCHARGED /TRANSFERR ED TO A [facility] FOR INPATIENT CARE REMAINS INPATIENT AT TIME OF DISCHARGE REMAINS IN INPATIENT FACILITY AT END OF CERT PERIOD 75.76
--- OUTSIDE RECORDS SUMMARY | 2024-09-01 06:41 | XMS_ITS | Clinical Summary ---
Author Organization Unknown Care Team Providers Care Anodic Operator Name Role Phone RYAN TAPIA, LEI Unavailable Unavailable JOSE THORNE, GRETA Unavailable Unavailable Payers Payer Name Policy Type Policy Number Effective Date Expira tion Date MEDICARE.NGS.PDGM [id number] Problems Condition Name Condition Details Condition Category [...] 02-08 00:00: 00 ATHSCL HEART DISEASE OF [place] CORONARY ARTERY W/O ANG PCTRS Active 09-14 [...] MANAGEMENT OF VAD Active 02-08 00:00: 00 PRISON (CURRENT) USE OF INSULIN Active 09-14 00:00: 00 LNG TRM (CRNT) USE INJECTABLE NON-INSULIN ANTIDIABETIC DRUGS Active 09-14 00:00: 00 PRISON (CURRENT) USE OF ORAL 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 DRUGS Active 09-14 00:00: 00 PRISON (CURRENT) USE OF ANTITHROMBOT ICS/ANTIPLAT ELETS Active [...] 01-14 00:00: 00 02-08 23:59 :00 No [id number] ANXIETY 1 tablet 2 TIMES DAILY 1 tablet 2 TIMES DAILY (route: oral) Med Classific ation: Central Nervous System Agents atorvastati n 80 mg tablet 01-14 00:00: 00 Yes [id number] CHOLESTEROL 1 tablet DAILY 1 tablet DAILY (route: oral) Med Classific ation: Cardiovas cular Therapy Agents bethanechol chloride 25 mg tablet 01-14 00:00: 00 Yes [id number] BLADDER 1 tablet 2 TIMES DAILY 1 tablet 2 TIMES DAILY (route: oral) Med Classific ation: Genitouri nary Therapy Farxiga 10 mg tablet 01-14 00:00: 00 Yes [id number] DM2 1 tablet DAILY 1 tablet DAILY (route: oral) Med Classific ation: Endocrine finasteride 5 mg tablet 01-14 00:00: 00 Yes [id number] BPH 1 tablet DAILY 1 tablet DAILY (route: oral) Med Classific ation: Genitouri nary Therapy gabapentin 400 mg capsule 01-14 00:00: 00 Yes [id number] NERVE PAIN 1 capsule 3 TIMES DAILY 1 capsule 3 TIMES DAILY (route: oral) Med Classific ation: Central Nervous System Agents insulin aspar prot-insuli n aspart 100 unit/mL (70-30) [facility] 00:00: 00 01-16 16:23 :30.0 57 No [id number] DM2 2-25 In unit 3 TIMES DAILY 2-25 In unit 3 TIMES DAILY (route: subcutaneo us) Med Classific ation: Endocrine iron 325 mg (65 mg iron) tablet 01-14 00:00: 00 Yes [id number] SUPPLEMENT 1 tablet DAILY 1 tablet DAILY (route: oral) Med Classific ation: Electroly te Balance-N utritiona l Products mecobalamin (vitamin B12) 1,000 mcg chewable tablet 01-14 00:00: 00 Yes [id number] SUPPLEMENT 1 tablet DAILY 1 tablet DAILY (route: oral) Med Classific ation: Electroly te Balance-N utritiona l Products metoprolol succinate ER 100 mg tablet,exte nded release 24 hr 01-14 00:00: 00 02-08 23:59 :00 No [id number] HTN 1 tablet DAILY 1 tablet DAILY (route: oral) Med Classific ation: Cardiovas cular Therapy Agents omeprazole 20 mg capsule,del ayed release 01-14 00:00: 00 02-08 23:59 :00 No [id number] GERD 1 capsule 2 TIMES DAILY 1 capsule 2 TIMES DAILY (route: oral) Med Classific ation: Gastroint estinal Therapy Agents Plavix 75 mg tablet 01-14 00:00: 00 Yes [id number] CLOTING 1 tablet DAILY 1 tablet DAILY (route: oral) Med Classific ation: Hematolog ical Agents tamsulosin 0.4 mg capsule 01-14 00:00: 00 Yes [id number] BPH 1 capsule DAILY 1 capsule DAILY (route: oral) Med Classific ation: Genitouri nary Therapy torsemide 20 mg tablet 01-14 00:00: 00 02-08 23:59 :00 No [id number] EDEMA 1 tablet DAILY 1 tablet DAILY (route: oral) Med Classific ation: Cardiovas cular Therapy Agents tramadol 50 mg tablet 01-14 00:00: 00 Yes [id number] PAIN 0.5 tablet EVERY 6 HOURS 0.5 tablet EVERY 6 HOURS (route: oral) Med Classific ation: Analgesic , Anti-infl ammatory or Antipyret ic Tresiba FlexTouch U-100 insulin 100 unit/mL (3 mL) subcutaneou s pen 01-14 00:00: 00 02-08 23:59 :00 No [id number] DM2 64 In unit DAILY 64 In unit DAILY (route: subcutaneo us) Med Classific ation: Endocrine Trulicity 0.75 mg/0.5 mL subcutaneou s pen injector 01-14 00:00: 00 Yes [id number] DM2 0.5 mL WEEKLY 0.5 mL WEEKLY (route: subcutaneo us) Med Classific ation: Endocrine Zetia 10 mg tablet 01-14 00:00: 00 Yes [id number] CHOLESTEROL 1 tablet DAILY 1 tablet DAILY (route: oral) Med Classific ation: Cardiovas cular Therapy Agents ceftriaxone 1 gram intravenous solution 02-08 00:00: 00 03-08 23:59 :00 No [id number] infection 2 gram DAILY 2 gram DAILY (route: intravenou s) Med Classific ation: Anti-Infe ctive Agents sodium chloride 0.9 % intravenous solution 02-08 00:00: 00 Yes [id number] flush 10 mL DIRECTED 10 mL DIRECTED (route: intravenou s) Med Classific ation: Electroly te Balance-N utritiona l Products heparin, porcine (PF) 10 unit/mL intravenous syringe 02-08 00:00: 00 Yes [id number] flush 5 mL DIRECTED 5 mL DIRECTED (route: intravenou s) Med Classific ation: Hematolog ical Agents carvedilol 6.25 mg tablet 02-08 00:00: 00 Yes [id number] heart 1 tablet 2 TIMES DAILY 1 tablet 2 TIMES DAILY (route: oral) Med Classific ation: Cardiovas cular Therapy Agents Lasix 40 mg tablet 02-08 00:00: 00 Yes [id number] fluid 1 tablet 2 TIMES DAILY 1 tablet 2 TIMES DAILY (route: oral) Med Classific ation: Cardiovas cular Therapy Agents Tresiba U-100 Insulin 100 unit/mL subcutaneou s solution 02-08 00:00: 00 Yes [id number] blood sugar 10 unit BEDTIME 10 unit BEDTIME (route: subcutaneo us) Med Classific ation: Endocrine pantoprazol e 40 mg tablet,shayna yed release 02-08 00:00: 00 Yes [id number] gerd 1 tablet DAILY 1 tablet DAILY (route: oral) Med Classific ation: Gastroint estinal Therapy Agents Aldactone 100 mg tablet 02-08 00:00: 00 Yes [id number] BP 1 tablet DAILY 1 tablet DAILY (route: oral) Med Classific ation: Cardiovas cular Therapy Agents aspirin 81 mg tablet,shayna yed release 02-08 00:00: 00 Yes [id number] ANTICOAGULA NT 1 tablet DAILY 1 tablet DAILY (route: oral) Med Classific ation: Hematolog ical Agents ceftriaxone 2 gram intravenous solution 02-08 00:00: 00 03-08 23:59 :00 No [id number] CERVICAL OSTEOMYELIT IS 2 g DAILY 2 g DAILY (route: intravenou s) Med Classific ation: Anti-Infe ctive Agents Coreg 6.25 mg tablet 02-08 00:00: 00 Yes [id number] BP 1 tablet 2 TIMES DAILY 1 tablet 2 TIMES DAILY (route: oral) Med Classific ation: Cardiovas cular Therapy Agents lactulose 10 gram/15 mL (15 mL) oral solution 02-08 00:00: 00 Yes [id number] LAXATIVE 15 mL NEEDED 15 mL NEEDED (route: oral) Med Classific ation: Gastroint estinal Therapy Agents Lasix 40 mg tablet 02-08 00:00: 00 Yes [id number] DIURETIC 1 tablet DAILY 1 tablet DAILY (route: oral) Med Classific ation: Cardiovas cular Therapy Agents midodrine 10 mg tablet 02-08 00:00: 00 Yes [id number] BP 1 tablet 3 TIMES DAILY 1 tablet 3 TIMES DAILY (route: oral) Med Classific ation: Cardiovas cular Therapy Agents Novolog FlexPen U-100 Insulin aspart 100 unit/mL (3 mL) subcutaneou s 02-08 00:00: 00 Yes [id number] DM2 Per instruc tions BEFORE MEALS Per instructio ns BEFORE MEALS (route: subcutaneo us) Med Classific ation: Endocrine pantoprazol e 40 mg tablet,shayna yed release 02-08 00:00: 00 Yes [id number] REFLUX 1 tablet DAILY 1 tablet DAILY (route: oral) Med Classific ation: Gastroint estinal Therapy Agents Tresiba FlexTouch U-100 insulin 100 unit/mL (3 mL) subcutaneou s pen 02-08 00:00: 00 Yes [id number] DM2 10 unit BEDTIME 10 unit BEDTIME [...] PATIENT REPORTED WEIGHT AND NOTIFY CM / EMT/DISPATCHER FOR MD NOTIFICATION FOR SIGNS AND SYMPTOMS [...] PATIENT REPORTED WEIGHT AND NOTIFY CM / EMT/DISPATCHER FOR MD NOTIFICATION FOR SIGNS AND SYMPTOMS [...] End Date/Time Encounter Type Admission Type Attending [facility] Care Department Encounter ID Discharge Date Discharge Status Discharge Condition Discharge Reason Percent Goals Met 2023-01-14 00:00:00 2023-03-12 00:00:00 Outpatient GRETA DELGADO [facility] [id number] 2023-03-12 00:00:00 DISCHARGE TO HOME OR SELF CARE INDEPENDEN T IN THE COMMUNITY HH OR PAL- GOALS MET 100.00
--- OUTSIDE RECORDS SUMMARY | 2024-09-01 06:41 | XMS_ITS | Continuity of Care Document ---
Author Organization [facility] Address [address] [address] Phone Care Team Providers Care Electric Sign Assembler Name Role Phone NAMITA Jacobson RD, Shauna Unavailable Unavail able Advance Directives Directive Yes / No Effective Date File Name No Information Encounters Encounter Description Practice Location Reason(s) For Visit Diagnoses Date Provider Providers Copied on Encounter [facility], [address] [address], [place], [place], [id number], [place] tel:[phone] [facility] No Information Indira Villatoro. [address] [place], [address]. tel:[phone] Family History Family Member Type Diagnosis Age At Onset No Information Payers Payer name Insurance type Covered republican ID Authoriza tion(s) No Information Social History [...]
--- OUTSIDE RECORDS SUMMARY | 2024-09-01 06:41 | XMS_ITS | Clinical Summary ---
Author Organization Unknown Care Team Providers Care Adoption Worker Name Role Phone RYAN TAPIA, LEI Unavailable Unavailable AUSTIN RN, NEYDA Unavailable Unavailable GUZMAN RN, GUILLERMO Unavailable Unavailable NORMA THORNE, RAPHAEL Unavailable Unavailable Payers Payer Name Policy Type Policy Number Effective Date Expira tion Date [place] - [place] [id number] [facility] [id number] Problems Condition Name Condition Details Condition Category [...] 11-12 00:00: 00 ATHSCL HEART DISEASE OF [place] CORONARY ARTERY W/O ANG PCTRS Active 11-12 [...] 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 11-12 00:00: 00 SENIOR CARE (CURRENT) USE OF ASPIRIN Active 11-12 00:00: 00 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) USE OF ORAL 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 DRUGS Active 11-12 00:00: 00 SENIOR CARE (CURRENT) USE OF INSULIN Active 11-12 00:00: [...] 10-21 00:00: 00 02-01 23:59 :00 No [id number] Per instruc tions AT BEDTIME Per instructio ns AT BEDTIME (route: subcutaneo us) Med Classific ation: Endocrine bethanechol chloride 25 mg tablet 10-18 00:00: 00 04-25 00:00 :00 No [id number] Per instruc tions TWICE DAILY Per instructio ns TWICE DAILY (route: oral) Med Classific ation: Genitouri nary Therapy Farxiga 10 mg tablet 2-04 00:00: 00 08-01 23:59 :00 No [id number] Per instruc tions DAILY Per instructio ns DAILY (route: oral) Med Classific ation: Endocrine ezetimibe 10 mg tablet 1-30 00:00: 00 08-01 23:59 :00 No [id number] Unavailable Per instruc tions DAILY Per instructio ns DAILY (route: oral) Med Classific ation: Cardiovas cular Therapy Agents Novolog FlexPen U-100 Insulin aspart 100 unit/mL (3 mL) subcutane s 1- 00:00: 00 03-21 23:59 :00 No [id number] Per instruc tions 3 TIMES DAILY Per instructio ns 3 TIMES DAILY (route: subcutaneo us) Med Classific ation: Endocrine Basaglar KwikPen U-100 Insulin 100 unit/mL (3 mL) [facility] 1-25 00:00: 00 11-12 23:59 :00 No [id number] Unavailable Per instruc tions SUBCUTANEO US ONCE EVERY Per instructio ns SUBCUTANEO US ONCE EVERY (route: subcutaneo us) Med Classific ation: Endocrine alprazolam 0.5 mg tablet 1-22 00:00: 00 02-01 23:59 :00 No [id number] Unavailable Per instruc tions TWICE DAILY NEEDED Per instructio ns TWICE DAILY NEEDED (route: oral) Med Classific ation: Central Nervous System Agents aspirin 81 mg tablet,shayna yed release - 00:00: 00 04-25 23:59 :00 No [id number] 1 tablet DAILY 1 tablet DAILY (route: oral) Med Classific ation: Hematolog ical Agents atorvastati n 80 mg tablet 3- 00:00: 00 04-25 23:59 :00 No [id number] 1 tablet BEDTIME 1 tablet BEDTIME (route: oral) Med Classific ation: Cardiovas cular Therapy Agents carvedilol 6.25 mg tablet 11-12 00:00: 00 03-01 23:59 :00 No [id number] 1 tablet 2 TIMES DAILY 1 tablet 2 TIMES DAILY (route: oral) Med Classific ation: Cardiovas cular Therapy Agents finasteride 5 mg tablet 11-12 00:00: 00 08-01 23:59 :00 No [id number] 1 tablet DAILY 1 tablet DAILY (route: oral) Med Classific ation: Genitouri nary Therapy Flomax 0.4 mg capsule 11-12 00:00: 00 08-01 23:59 :00 No [id number] 1 capsule DAILY 1 capsule DAILY (route: oral) Med Classific ation: Genitouri nary Therapy gabapentin 400 mg capsule 11-12 00:00: 00 02-01 23:59 :00 No [id number] 1 capsule 2 TIMES DAILY 1 capsule 2 TIMES DAILY (route: oral) Med Classific ation: Central Nervous System Agents iron 325 mg (65 mg iron) tablet 11-12 00:00: 00 08-01 23:59 :00 No [id number] 1 tablet DAILY 1 tablet DAILY (route: oral) Med Classific ation: Electroly te Balance-N utritiona l Products pantoprazol e 40 mg tablet,shayna yed release 11-12 00:00: 00 08-01 23:59 :00 No [id number] 1 tablet DAILY 1 tablet DAILY (route: oral) Med Classific ation: Gastroint estinal Therapy Agents spironolact one 50 mg tablet 11-12 00:00: 00 02-01 23:59 :00 No [id number] 1 tablet DAILY 1 tablet DAILY (route: oral) Med Classific ation: Cardiovas cular Therapy Agents Trulicity 0.75 mg/0.5 mL subcutaneou s pen injector 11-12 00:00: 00 08-01 23:59 :00 No [id number] 0.5 mL WEEKLY 0.5 mL WEEKLY (route: subcutaneo us) Med Classific ation: Endocrine Vitamin B-12 500 mcg tablet 11-12 00:00: 00 02-01 00:00 :00 No [id number] 2 tablet BEDTIME 2 tablet BEDTIME (route: oral) Med Classific ation: Electroly te Balance-N utritiona l Products alprazolam 0.5 mg tablet 02-08 00:00: 00 04-25 23:59 :00 No [id number] 1 tablet 2 TIMES DAILY 1 tablet 2 TIMES DAILY (route: oral) Med Classific ation: Central Nervous System Agents bumetanide 1 mg tablet 02-01 00:00: 00 02-17 23:59 :00 No [id number] 1 mg DAILY 1 mg DAILY (route: oral) Med Classific ation: Cardiovas cular Therapy Agents ciprofloxac in 500 mg tablet 02-01 00:00: 00 02-02 23:59 :00 No [id number] 1 tablet DAILY 1 tablet DAILY (route: oral) Med Classific ation: Anti-Infe ctive Agents cyanocobala min (vit B-12) 500 mcg tablet 02-01 00:00: 00 08-01 23:59 :00 No [id number] 2 tablet BEDTIME 2 tablet BEDTIME (route: oral) Med Classific ation: Electroly te Balance-N utritiona l Products gabapentin 400 mg capsule 02-08 00:00: 00 04-25 23:59 :00 No [id number] 1 capsule 2 TIMES DAILY 1 capsule 2 TIMES DAILY (route: oral) Med Classific ation: Central Nervous System Agents lactulose 20 gram/30 mL oral solution 02-01 00:00: 00 04-25 23:59 :00 No [id number] 45 mL 3 TIMES DAILY 45 mL 3 TIMES DAILY (route: oral) Med Classific ation: Gastroint estinal Therapy Agents Tresiba FlexTouch U-100 insulin 100 unit/mL (3 mL) subcutaneou s pen 02-01 00:00: 00 08-01 23:59 :00 No [id number] 6 unit BEDTIME 6 unit BEDTIME (route: subcutaneo us) Med Classific ation: Endocrine bumetanide 1 mg tablet 02-17 00:00: 00 02-21 23:59 :00 No [id number] 2 tablet DAILY 2 tablet DAILY (route: oral) Med Classific ation: Cardiovas cular Therapy Agents bumetanide 1 mg tablet 02-17 00:00: 00 03-01 23:59 :00 No [id number] 1 tablet 2 TIMES DAILY 1 tablet 2 TIMES DAILY (route: oral) Med Classific ation: Cardiovas cular Therapy Agents spironolact one 25 mg tablet 03-01 00:00: 00 04-25 00:00 :00 No [id number] 2 tablet DAILY 2 tablet DAILY (route: oral) Med Classific ation: Cardiovas cular Therapy Agents torsemide 20 mg tablet 03-01 00:00: 00 04-25 00:00 :00 No [id number] 2 tablet DAILY 2 tablet DAILY (route: oral) Med Classific ation: Cardiovas cular Therapy Agents midodrine 10 mg tablet 03-01 00:00: 00 08-01 23:59 :00 No [id number] 1 tablet DIRECTED 1 tablet DIRECTED (route: oral) Med Classific ation: Cardiovas cular Therapy Agents Humulin R Regular U-100 Insulin 100 unit/mL injection solution 03-21 00:00: 00 04-25 00:00 :00 No [id number] 20 unit 3 TIMES DAILY 20 unit 3 TIMES DAILY (route: injection) Med Classific ation: Endocrine Basaglar KwikPen U-100 Insulin 100 unit/mL (3 mL) [facility] 04-25 00:00: 00 08-01 23:59 :00 No [id number] 1 unit 3 TIMES DAILY 1 unit 3 TIMES DAILY (route: subcutaneo us) Med Classific ation: Endocrine bumetanide 1 mg tablet 04-25 00:00: 00 08-01 23:59 :00 No [id number] 1 tablet DAILY 1 tablet DAILY (route: oral) Med Classific ation: Cardiovas cular Therapy Agents spironolact one 25 mg tablet 04-25 00:00: 00 08-01 23:59 :00 No [id number] 1 tablet DAILY 1 tablet DAILY (route: oral) Med Classific ation: Cardiovas cular Therapy Agents atorvastati n 80 mg tablet 04-26 00:00: 00 08-01 23:59 :00 No [id number] 0.5 tablet BEDTIME 0.5 tablet BEDTIME (route: oral) Med Classific ation: Cardiovas cular Therapy Agents carvedilol 6.25 mg tablet 04-26 00:00: 00 08-01 23:59 :00 No [id number] 1 tablet 2 TIMES DAILY 1 tablet 2 TIMES DAILY (route: oral) Med Classific ation: Cardiovas cular Therapy Agents alprazolam 0.5 mg tablet 04-26 00:00: 00 08-01 23:59 :00 No [id number] 1 tablet 2 TIMES DAILY 1 tablet 2 TIMES DAILY (route: oral) Med Classific ation: Central Nervous System Agents gabapentin 300 mg capsule 04-26 00:00: 00 08-01 23:59 :00 No [id number] 1 capsule 2 TIMES DAILY 1 capsule 2 TIMES DAILY (route: oral) Med Classific ation: Central Nervous System Agents cyanocobala min (vit B-12) 500 mcg tablet 04-26 00:00: 00 08-01 23:59 :00 No [id number] 2 tablet BEDTIME 2 tablet BEDTIME (route: oral) Med Classific ation: Electroly te Balance-N utritiona l Products lactulose 10 gram/15 mL oral solution 04-26 00:00: 00 08-01 23:59 :00 No [id number] 30 mL 2 TIMES DAILY 30 mL [...] CARE WILL BE ESTABLISHED THAT MEETS PATIENT'S LONG TERM NEEDS AND INCLUDES PATIENT GOAL FOR HOME [...] End Date/Time Encounter Type Admission Type Attending [facility] Care Facility Care Department Encounter ID Discharge Date Discharge Status Discharge Condition Discharge Reason Percent Goals Met 2023-11-13 00:00:00 2024-05-10 00:00:00 Outpatient [facility] ATION RAPHAEL GREEN [facility] [id number] 2024-05-10 00:00:00 DISCHARGED /TRANSFERR ED TO A [facility] FOR INPATIENT CARE REMAINS INPATIENT AT TIME OF DISCHARGE REMAINS IN INPATIENT FACILITY AT END OF CERT PERIOD 75.76
[2024-09-01 07:55] LABS: Anion Gap 13 (12-20); Blood Urea Nitrogen 53 mg/dL (9-16); Calcium 7.5 mg/dL (8.4-10.2); Carbon Dioxide 22 mmol/L (22-29); Chloride 104 mmol/L (96-108); Creatinine Clr Calc Pharmacy 29.9; Estimated Glomerular Filt Rate 31; Glucose Random 187 mg/dL (60-115); Potassium 5.6 mmol/L (3.3-5.1); Sodium 133 mmol/L (135-145)
[2024-09-01] MEDS: Sodium Polystyrene Sulfon/Sorb 15 GM/60 ML ORAL.SUSP 30 GM PO (09:12)
[2024-09-01] MEDS: Furosemide 20 MG/2 ML VIAL IVPUSH (10:27)
== END 2024-09-01 16:27 | disposition home or self-care (01) ==
PROVIDERS: Emergency Medicine Emergency Medical Services; Emergency Provider Internal Medicine; PCP Physician Assistant
DX: D64.9 Anemia, unspecified (principal); Z91.81 History of falling; R60.0 Localized edema; E11.22 Type 2 diabetes mellitus with diabetic chronic kidney disease; I12.9 Hypertensive chronic kidney disease with stage 1 through stage 4 chronic kidney disease, or unspecified chronic kidney disease; N18.4 Chronic kidney disease, stage 4 (severe); E78.5 Hyperlipidemia, unspecified; Z95.2 Presence of prosthetic heart valve; Z79.4 Long term (current) use of insulin; Z79.899 Other long term (current) drug therapy; Z79.85 Long-term (current) use of injectable non-insulin antidiabetic drugs; Z79.02 Long term (current) use of antithrombotics/antiplatelets
CPT/HCPCS: 36415; 36430; 80048; 80053; 82803; 83880; 85025; 86850; 86900; 86901; 86923; 93005; 99284; 99285; J1940; P9016

== ENCOUNTER → 2024-09-01 05:36 | Outpatient (BNV) | payer MEDICARE, SELFPAY | PROVIDERS: Emergency Provider Internal Medicine; PCP Physician Assistant; Visit Provider Internal Medicine | DX: R94.31 Abnormal electrocardiogram [ECG] [EKG] (principal) | CPT/HCPCS: 93010 ==

== ENCOUNTER 2024-09-05 07:33 | Outpatient (REF) | payer MEDICARE, SELFPAY ==
--- OUTSIDE RECORDS SUMMARY | 2024-09-05 07:37 | XMS_ITS | Clinical Summary ---
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 11-12 00:00: 00 GROUP HOME (CURRENT) USE OF ASPIRIN Active 11-12 00:00: 00 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 OF ORAL 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 DRUGS Active 11-12 00:00: 00 GROUP HOME (CURRENT) USE OF INSULIN Active 11-12 00:00: [...] 10-21 00:00: 00 02-01 23:59 :00 No [id number] Per instruc tions AT BEDTIME Per instructio ns AT BEDTIME (route: subcutaneo us) Med Classific ation: Endocrine bethanechol chloride 25 mg tablet 10-18 00:00: 00 04-25 00:00 :00 No [id number] Per instruc tions TWICE DAILY Per instructio ns TWICE DAILY (route: oral) Med Classific ation: Genitouri nary Therapy Farxiga 10 mg tablet 2-04 00:00: 00 08-01 23:59 :00 No [id number] Per instruc tions DAILY Per instructio ns DAILY (route: oral) Med Classific ation: Endocrine ezetimibe 10 mg tablet 1-30 00:00: 00 08-01 23:59 :00 No [id number] Unavailable Per instruc tions DAILY Per instructio ns DAILY (route: oral) Med Classific ation: Cardiovas cular Therapy Agents Novolog FlexPen U-100 Insulin aspart 100 unit/mL (3 mL) subcutane s 1- 00:00: 00 03-21 23:59 :00 No [id number] Per instruc tions 3 TIMES DAILY Per instructio ns 3 TIMES DAILY (route: subcutaneo us) Med Classific ation: Endocrine Basaglar KwikPen U-100 [facility]ulin 100 unit[facility]mL (3 mL[facility] 1-25 00:00: 00 11-12 23:59 :00 No [id number] Unavailable Per instruc tions SUBCUTANEO US ONCE EVERY Per instructio ns SUBCUTANEO US ONCE EVERY (route: subcutaneo us) Med Classific ation: Endocrine alprazolam 0.5 mg tablet 1-22 00:00: 00 02-01 23:59 :00 No [id number] Unavailable Per instruc tions TWICE DAILY NEEDED Per instructio ns TWICE DAILY NEEDED (route: oral) Med Classific ation: Central Nervous System Agents aspirin 81 mg tablet,shayna yed release - 00:00: 00 04-25 23:59 :00 No [id number] 1 tablet DAILY 1 tablet DAILY (route: oral) Med Classific ation: Hematolog ical Agents atorvastati n 80 mg tablet 3- 00:00: 00 04-25 23:59 :00 No [id number] 1 tablet BEDTIME 1 tablet BEDTIME (route: oral) Med Classific ation: Cardiovas cular Therapy Agents carvedilol 6.25 mg tablet 11-12 00:00: 00 03-01 23:59 :00 No [id number] 1 tablet 2 TIMES DAILY 1 tablet 2 TIMES DAILY (route: oral) Med Classific ation: Cardiovas cular Therapy Agents finasteride 5 mg tablet 11-12 00:00: 00 08-01 23:59 :00 No [id number] 1 tablet DAILY 1 tablet DAILY (route: oral) Med Classific ation: Genitouri nary Therapy Flomax 0.4 mg capsule 11-12 00:00: 00 08-01 23:59 :00 No [id number] 1 capsule DAILY 1 capsule DAILY (route: oral) Med Classific ation: Genitouri nary Therapy gabapentin 400 mg capsule 11-12 00:00: 00 02-01 23:59 :00 No [id number] 1 capsule 2 TIMES DAILY 1 capsule 2 TIMES DAILY (route: oral) Med Classific ation: Central Nervous System Agents iron 325 mg (65 mg iron) tablet 11-12 00:00: 00 08-01 23:59 :00 No [id number] 1 tablet DAILY 1 tablet DAILY (route: oral) Med Classific ation: Electroly te Balance-N utritiona l Products pantoprazol e 40 mg tablet,shayna yed release 11-12 00:00: 00 08-01 23:59 :00 No [id number] 1 tablet DAILY 1 tablet DAILY (route: oral) Med Classific ation: Gastroint estinal Therapy Agents spironolact one 50 mg tablet 11-12 00:00: 00 02-01 23:59 :00 No [id number] 1 tablet DAILY 1 tablet DAILY (route: oral) Med Classific ation: Cardiovas cular Therapy Agents Trulicity 0.75 mg/0.5 mL subcutaneou s pen injector 11-12 00:00: 00 08-01 23:59 :00 No [id number] 0.5 mL WEEKLY 0.5 mL WEEKLY (route: subcutaneo us) Med Classific ation: Endocrine Vitamin B-12 500 mcg tablet 11-12 00:00: 00 02-01 00:00 :00 No [id number] 2 tablet BEDTIME 2 tablet BEDTIME (route: oral) Med Classific ation: Electroly te Balance-N utritiona l Products alprazolam 0.5 mg tablet 02-08 00:00: 00 04-25 23:59 :00 No [id number] 1 tablet 2 TIMES DAILY 1 tablet 2 TIMES DAILY (route: oral) Med Classific ation: Central Nervous System Agents bumetanide 1 mg tablet 02-01 00:00: 00 02-17 23:59 :00 No [id number] 1 mg DAILY 1 mg DAILY (route: oral) Med Classific ation: Cardiovas cular Therapy Agents ciprofloxac in 500 mg tablet 02-01 00:00: 00 02-02 23:59 :00 No [id number] 1 tablet DAILY 1 tablet DAILY (route: oral) Med Classific ation: Anti-Infe ctive Agents cyanocobala min (vit B-12) 500 mcg tablet 02-01 00:00: 00 08-01 23:59 :00 No [id number] 2 tablet BEDTIME 2 tablet BEDTIME (route: oral) Med Classific ation: Electroly te Balance-N utritiona l Products gabapentin 400 mg capsule 02-08 00:00: 00 04-25 23:59 :00 No [id number] 1 capsule 2 TIMES DAILY 1 capsule 2 TIMES DAILY (route: oral) Med Classific ation: Central Nervous System Agents lactulose 20 gram/30 mL oral solution 02-01 00:00: 00 04-25 23:59 :00 No [id number] 45 mL 3 TIMES DAILY 45 mL 3 TIMES DAILY (route: oral) Med Classific ation: Gastroint estinal Therapy Agents Tresiba FlexTouch U-100 insulin 100 unit/mL (3 mL) subcutaneou s pen 02-01 00:00: 00 08-01 23:59 :00 No [id number] 6 unit BEDTIME 6 unit BEDTIME (route: subcutaneo us) Med Classific ation: Endocrine bumetanide 1 mg tablet 02-17 00:00: 00 02-21 23:59 :00 No [id number] 2 tablet DAILY 2 tablet DAILY (route: oral) Med Classific ation: Cardiovas cular Therapy Agents bumetanide 1 mg tablet 02-17 00:00: 00 03-01 23:59 :00 No [id number] 1 tablet 2 TIMES DAILY 1 tablet 2 TIMES DAILY (route: oral) Med Classific ation: Cardiovas cular Therapy Agents spironolact one 25 mg tablet 03-01 00:00: 00 04-25 00:00 :00 No [id number] 2 tablet DAILY 2 tablet DAILY (route: oral) Med Classific ation: Cardiovas cular Therapy Agents torsemide 20 mg tablet 03-01 00:00: 00 04-25 00:00 :00 No [id number] 2 tablet DAILY 2 tablet DAILY (route: oral) Med Classific ation: Cardiovas cular Therapy Agents midodrine 10 mg tablet 03-01 00:00: 00 08-01 23:59 :00 No [id number] 1 tablet DIRECTED 1 tablet DIRECTED (route: oral) Med Classific ation: Cardiovas cular Therapy Agents Humulin R Regular U-100 Insulin 100 unit/mL injection solution 03-21 00:00: 00 04-25 00:00 :00 No [id number] 20 unit 3 TIMES DAILY 20 unit 3 TIMES DAILY (route: injection) Med Classific ation: Endocrine Basaglar KwikPen U-100 Insulin 100 unit/mL (3 mL) [facility] 04-25 00:00: 00 08-01 23:59 :00 No [id number] 1 unit 3 TIMES DAILY 1 unit 3 TIMES DAILY (route: subcutaneo us) Med Classific ation: Endocrine bumetanide 1 mg tablet 04-25 00:00: 00 08-01 23:59 :00 No [id number] 1 tablet DAILY 1 tablet DAILY (route: oral) Med Classific ation: Cardiovas cular Therapy Agents spironolact one 25 mg tablet 04-25 00:00: 00 08-01 23:59 :00 No [id number] 1 tablet DAILY 1 tablet DAILY (route: oral) Med Classific ation: Cardiovas cular Therapy Agents atorvastati n 80 mg tablet 04-26 00:00: 00 08-01 23:59 :00 No [id number] 0.5 tablet BEDTIME 0.5 tablet BEDTIME (route: oral) Med Classific ation: Cardiovas cular Therapy Agents carvedilol 6.25 mg tablet 04-26 00:00: 00 08-01 23:59 :00 No [id number] 1 tablet 2 TIMES DAILY 1 tablet 2 TIMES DAILY (route: oral) Med Classific ation: Cardiovas cular Therapy Agents alprazolam 0.5 mg tablet 04-26 00:00: 00 08-01 23:59 :00 No [id number] 1 tablet 2 TIMES DAILY 1 tablet 2 TIMES DAILY (route: oral) Med Classific ation: Central Nervous System Agents gabapentin 300 mg capsule 04-26 00:00: 00 08-01 23:59 :00 No [id number] 1 capsule 2 TIMES DAILY 1 capsule 2 TIMES DAILY (route: oral) Med Classific ation: Central Nervous System Agents cyanocobala min (vit B-12) 500 mcg tablet 04-26 00:00: 00 08-01 23:59 :00 No [id number] 2 tablet BEDTIME 2 tablet BEDTIME (route: oral) Med Classific ation: Electroly te Balance-N utritiona l Products lactulose 10 gram/15 mL oral solution 04-26 00:00: 00 08-01 23:59 :00 No [id number] 30 mL 2 TIMES DAILY 30 mL [...] End Date/Time Encounter Type Admission Type Attending [facility] Care Facility Care Department Encounter ID Discharge Date Discharge Status Discharge Condition Discharge Reason Percent Goals Met 2023-11-13 00:00:00 2024-05-10 00:00:00 [facility] RAP[facility] ED [id number] 2024-05-10 00:00:00 DISCHARGED /TRANSFERR ED TO A [facility] FOR INPATIENT CARE REMAINS INPATIENT AT TIME OF DISCHARGE REMAINS IN INPATIENT FACILITY AT END OF CERT PERIOD 75.76
--- OUTSIDE RECORDS SUMMARY | 2024-09-05 07:37 | XMS_ITS | Clinical Summary ---
Author Organization Unknown Care Team Providers Care Rn Night Name Role Phone RYAN TAPIA, LEI Unavailable Unavailable AUSTIN RN, NEYDA Unavailable Unavailable GUZMAN RN, GUILLERMO Unavailable Unavailable NORMA THORNE, RAPHAEL Unavailable Unavailable Payers Payer Name Policy Type Policy Number Effective Date Expira tion Date MEDIC[place] - [place] [id number] [facility] [id number] Problems Condition Name Condition Details Condition Category [...] 11-12 00:00: 00 ATHSCL HEART DISEASE OF [place] CORONARY ARTERY W/O ANG PCTRS Active 11-12 [...] USE OF ASPIRIN Active 11-12 00:00: 00 ASSISTANT TO THE DEAN (CURRENT) USE OF ORAL 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 DRUGS Active [...] 10-21 00:00: 00 02-01 23:59 :00 No [id number] Per instruc tions AT BEDTIME Per instructio ns AT BEDTIME (route: subcutaneo us) Med Classific ation: Endocrine bethanechol chloride 25 mg tablet 10-18 00:00: 00 04-25 00:00 :00 No [id number] Per instruc tions TWICE DAILY Per instructio ns TWICE DAILY (route: oral) Med Classific ation: Genitouri nary Therapy Farxiga 10 mg tablet 2-04 00:00: 00 08-01 23:59 :00 No [id number] Per instruc tions DAILY Per instructio ns DAILY (route: oral) Med Classific ation: Endocrine ezetimibe 10 mg tablet 1-30 00:00: 00 08-01 23:59 :00 No [id number] Unavailable Per instruc tions DAILY Per instructio ns DAILY (route: oral) Med Classific ation: Cardiovas cular Therapy Agents Novolog FlexPen U-100 Insulin aspart 100 unit/mL (3 mL) subcutane s 1- 00:00: 00 03-21 23:59 :00 No [id number] Per instruc tions 3 TIMES DAILY Per instructio ns 3 TIMES DAILY (route: subcutaneo us) Med Classific ation: Endocrine Basaglar KwikPen U-100 Insulin 100 unit/mL (3 mL) [facility] 1-25 00:00: 00 11-12 23:59 :00 No [id number] Unavailable Per instruc tions SUBCUTANEO US ONCE EVERY Per instructio ns SUBCUTANEO US ONCE EVERY (route: subcutaneo us) Med Classific ation: Endocrine alprazolam 0.5 mg tablet 1-22 00:00: 00 02-01 23:59 :00 No [id number] Unavailable Per instruc tions TWICE DAILY NEEDED Per instructio ns TWICE DAILY NEEDED (route: oral) Med Classific ation: Central Nervous System Agents aspirin 81 mg tablet,shayna yed release - 00:00: 00 04-25 23:59 :00 No [id number] 1 tablet DAILY 1 tablet DAILY (route: oral) Med Classific ation: Hematolog ical Agents atorvastati n 80 mg tablet 3- 00:00: 00 04-25 23:59 :00 No [id number] 1 tablet BEDTIME 1 tablet BEDTIME (route: oral) Med Classific ation: Cardiovas cular Therapy Agents carvedilol 6.25 mg tablet 11-12 00:00: 00 03-01 23:59 :00 No [id number] 1 tablet 2 TIMES DAILY 1 tablet 2 TIMES DAILY (route: oral) Med Classific ation: Cardiovas cular Therapy Agents finasteride 5 mg tablet 11-12 00:00: 00 08-01 23:59 :00 No [id number] 1 tablet DAILY 1 tablet DAILY (route: oral) Med Classific ation: Genitouri nary Therapy Flomax 0.4 mg capsule 11-12 00:00: 00 08-01 23:59 :00 No [id number] 1 capsule DAILY 1 capsule DAILY (route: oral) Med Classific ation: Genitouri nary Therapy gabapentin 400 mg capsule 11-12 00:00: 00 02-01 23:59 :00 No [id number] 1 capsule 2 TIMES DAILY 1 capsule 2 TIMES DAILY (route: oral) Med Classific ation: Central Nervous System Agents iron 325 mg (65 mg iron) tablet 11-12 00:00: 00 08-01 23:59 :00 No [id number] 1 tablet DAILY 1 tablet DAILY (route: oral) Med Classific ation: Electroly te Balance-N utritiona l Products pantoprazol e 40 mg tablet,shayna yed release 11-12 00:00: 00 08-01 23:59 :00 No [id number] 1 tablet DAILY 1 tablet DAILY (route: oral) Med Classific ation: Gastroint estinal Therapy Agents spironolact one 50 mg tablet 11-12 00:00: 00 02-01 23:59 :00 No [id number] 1 tablet DAILY 1 tablet DAILY (route: oral) Med Classific ation: Cardiovas cular Therapy Agents Trulicity 0.75 mg/0.5 mL subcutaneou s pen injector 11-12 00:00: 00 08-01 23:59 :00 No [id number] 0.5 mL WEEKLY 0.5 mL WEEKLY (route: subcutaneo us) Med Classific ation: Endocrine Vitamin B-12 500 mcg tablet 11-12 00:00: 00 02-01 00:00 :00 No [id number] 2 tablet BEDTIME 2 tablet BEDTIME (route: oral) Med Classific ation: Electroly te Balance-N utritiona l Products alprazolam 0.5 mg tablet 02-08 00:00: 00 04-25 23:59 :00 No [id number] 1 tablet 2 TIMES DAILY 1 tablet 2 TIMES DAILY (route: oral) Med Classific ation: Central Nervous System Agents bumetanide 1 mg tablet 02-01 00:00: 00 02-17 23:59 :00 No [id number] 1 mg DAILY 1 mg DAILY (route: oral) Med Classific ation: Cardiovas cular Therapy Agents ciprofloxac in 500 mg tablet 02-01 00:00: 00 02-02 23:59 :00 No [id number] 1 tablet DAILY 1 tablet DAILY (route: oral) Med Classific ation: Anti-Infe ctive Agents cyanocobala min (vit B-12) 500 mcg tablet 02-01 00:00: 00 08-01 23:59 :00 No [id number] 2 tablet BEDTIME 2 tablet BEDTIME (route: oral) Med Classific ation: Electroly te Balance-N utritiona l Products gabapentin 400 mg capsule 02-08 00:00: 00 04-25 23:59 :00 No [id number] 1 capsule 2 TIMES DAILY 1 capsule 2 TIMES DAILY (route: oral) Med Classific ation: Central Nervous System Agents lactulose 20 gram/30 mL oral solution 02-01 00:00: 00 04-25 23:59 :00 No [id number] 45 mL 3 TIMES DAILY 45 mL 3 TIMES DAILY (route: oral) Med Classific ation: Gastroint estinal Therapy Agents Tresiba FlexTouch U-100 insulin 100 unit/mL (3 mL) subcutaneou s pen 02-01 00:00: 00 08-01 23:59 :00 No [id number] 6 unit BEDTIME 6 unit BEDTIME (route: subcutaneo us) Med Classific ation: Endocrine bumetanide 1 mg tablet 02-17 00:00: 00 02-21 23:59 :00 No [id number] 2 tablet DAILY 2 tablet DAILY (route: oral) Med Classific ation: Cardiovas cular Therapy Agents bumetanide 1 mg tablet 02-17 00:00: 00 03-01 23:59 :00 No [id number] 1 tablet 2 TIMES DAILY 1 tablet 2 TIMES DAILY (route: oral) Med Classific ation: Cardiovas cular Therapy Agents spironolact one 25 mg tablet 03-01 00:00: 00 04-25 00:00 :00 No [id number] 2 tablet DAILY 2 tablet DAILY (route: oral) Med Classific ation: Cardiovas cular Therapy Agents torsemide 20 mg tablet 03-01 00:00: 00 04-25 00:00 :00 No [id number] 2 tablet DAILY 2 tablet DAILY (route: oral) Med Classific ation: Cardiovas cular Therapy Agents midodrine 10 mg tablet 03-01 00:00: 00 08-01 23:59 :00 No [id number] 1 tablet DIRECTED 1 tablet DIRECTED (route: oral) Med Classific ation: Cardiovas cular Therapy Agents Humulin R Regular U-100 Insulin 100 unit/mL injection solution 03-21 00:00: 00 04-25 00:00 :00 No [id number] 20 unit 3 TIMES DAILY 20 unit 3 TIMES DAILY (route: injection) Med Classific ation: Endocrine Basaglar KwikPen U-100 Insulin 100 unit/mL (3 mL) [facility] 04-25 00:00: 00 08-01 23:59 :00 No [id number] 1 unit 3 TIMES DAILY 1 unit 3 TIMES DAILY (route: subcutaneo us) Med Classific ation: Endocrine bumetanide 1 mg tablet 04-25 00:00: 00 08-01 23:59 :00 No [id number] 1 tablet DAILY 1 tablet DAILY (route: oral) Med Classific ation: Cardiovas cular Therapy Agents spironolact one 25 mg tablet 04-25 00:00: 00 08-01 23:59 :00 No [id number] 1 tablet DAILY 1 tablet DAILY (route: oral) Med Classific ation: Cardiovas cular Therapy Agents atorvastati n 80 mg tablet 04-26 00:00: 00 08-01 23:59 :00 No [id number] 0.5 tablet BEDTIME 0.5 tablet BEDTIME (route: oral) Med Classific ation: Cardiovas cular Therapy Agents carvedilol 6.25 mg tablet 04-26 00:00: 00 08-01 23:59 :00 No [id number] 1 tablet 2 TIMES DAILY 1 tablet 2 TIMES DAILY (route: oral) Med Classific ation: Cardiovas cular Therapy Agents alprazolam 0.5 mg tablet 04-26 00:00: 00 08-01 23:59 :00 No [id number] 1 tablet 2 TIMES DAILY 1 tablet 2 TIMES DAILY (route: oral) Med Classific ation: Central Nervous System Agents gabapentin 300 mg capsule 04-26 00:00: 00 08-01 23:59 :00 No [id number] 1 capsule 2 TIMES DAILY 1 capsule 2 TIMES DAILY (route: oral) Med Classific ation: Central Nervous System Agents cyanocobala min (vit B-12) 500 mcg tablet 04-26 00:00: 00 08-01 23:59 :00 No [id number] 2 tablet BEDTIME 2 tablet BEDTIME (route: oral) Med Classific ation: Electroly te Balance-N utritiona l Products lactulose 10 gram/15 mL oral solution 04-26 00:00: 00 08-01 23:59 :00 No [id number] 30 mL 2 TIMES DAILY 30 mL [...] OA, SPINAL STENOSIS.] Future Scheduled Test PATIENT [place] S A RISK OF HOSPITALIZATION AND ED [...] CARE WILL BE ESTABLISHED THAT MEETS PATIENT'S HALF-WAY NEEDS AND INCLUDES PATIENT GOAL FOR HOME [...] Date/Time Encounter Type Admission Type Attending [facility] Care Facility Care Department Encounter ID Discharge Date Discharge Status Discharge Condition Discharge Reason Percent Goals Met 2023-11-13 00:00:00 2024-05-10 00:00:00 [facility] [id number] 2024-05-10 00:00:00 DISCHARGED /TRANSFERR ED TO A [facility] FOR INPATIENT CARE REMAINS INPATIENT AT TIME OF DISCHARGE REMAINS IN INPATIENT FACILITY AT END OF CERT PERIOD 75.76
--- OUTSIDE RECORDS SUMMARY | 2024-09-05 07:37 | XMS_ITS | Continuity of Care Document ---
Author Organization [facility] Address [address] [address] Phone Care Team Providers Care Purse Maker Name Role Phone NAMITA Jacobson RD, Shauna Unavailable Unavail able Advance Directives Directive Yes / No Effective Date File Name No Information Encounters Encounter Description Practice Location Reason(s) For Visit Diagnoses Date Provider Providers Copied on Encounter [facility], [address] [address], [place], [place], [id number], [place] tel:[phone] [facility] No Information Indira Villatoro. [address] [place], [address]. tel:[phone] Family History Family Member Type Diagnosis Age At Onset No Information Payers Payer name Insurance type Covered democrat ID Authoriza tion(s) No Information Social History [...]
--- OUTSIDE RECORDS SUMMARY | 2024-09-05 07:37 | XMS_ITS | Clinical Summary ---
Author Organization Unknown Care Team Providers Care Farrowing Manager Name Role Phone RYAN TAPIA, LEI Unavailable Unavailable JOSE THORNE, GRETA Unavailable Unavailable Payers Payer Name Policy Type Policy Number Effective Date Expira tion Date MEDICARE.NGS.PDGM [id number] Problems Condition Name Condition Details Condition Category [...] 02-08 00:00: 00 ATHSCL HEART DISEASE OF [place] CORONARY ARTERY W/O ANG PCTRS Active 09-14 [...] MANAGEMENT OF VAD Active 02-08 00:00: 00 JAIL (CURRENT) USE OF INSULIN Active 09-14 00:00: 00 LNG TRM (CRNT) USE INJECTABLE NON-INSULIN ANTIDIABETIC DRUGS Active 09-14 00:00: 00 JAIL (CURRENT) USE OF ORAL 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 DRUGS Active 09-14 00:00: 00 JAIL (CURRENT) USE OF ANTITHROMBOT ICS/ANTIPLAT ELETS Active [...] 01-14 00:00: 00 02-08 23:59 :00 No [id number] ANXIETY 1 tablet 2 TIMES DAILY 1 tablet 2 TIMES DAILY (route: oral) Med Classific ation: Central Nervous System Agents atorvastati n 80 mg tablet 01-14 00:00: 00 Yes [id number] CHOLESTEROL 1 tablet DAILY 1 tablet DAILY (route: oral) Med Classific ation: Cardiovas cular Therapy Agents bethanechol chloride 25 mg tablet 01-14 00:00: 00 Yes [id number] BLADDER 1 tablet 2 TIMES DAILY 1 tablet 2 TIMES DAILY (route: oral) Med Classific ation: Genitouri nary Therapy Farxiga 10 mg tablet 01-14 00:00: 00 Yes [id number] DM2 1 tablet DAILY 1 tablet DAILY (route: oral) Med Classific ation: Endocrine finasteride 5 mg tablet 01-14 00:00: 00 Yes [id number] BPH 1 tablet DAILY 1 tablet DAILY (route: oral) Med Classific ation: Genitouri nary Therapy gabapentin 400 mg capsule 01-14 00:00: 00 Yes [id number] NERVE PAIN 1 capsule 3 TIMES DAILY 1 capsule 3 TIMES DAILY (route: oral) Med Classific ation: Central Nervous System Agents insulin aspar prot-insuli n aspart 100 unit/mL (70-30) [facility] pen 01-14 00:00: 00 01-16 16:23 :30.0 57 No [id number] DM2 2-25 In unit 3 TIMES DAILY 2-25 In unit 3 TIMES DAILY (route: subcutaneo us) Med Classific ation: Endocrine iron 325 mg (65 mg iron) tablet 01-14 00:00: 00 Yes [id number] SUPPLEMENT 1 tablet DAILY 1 tablet DAILY (route: oral) Med Classific ation: Electroly te Balance-N utritiona l Products mecobalamin (vitamin B12) 1,000 mcg chewable tablet 01-14 00:00: 00 Yes [id number] SUPPLEMENT 1 tablet DAILY 1 tablet DAILY (route: oral) Med Classific ation: Electroly te Balance-N utritiona l Products metoprolol succinate ER 100 mg tablet,exte nded release 24 hr 01-14 00:00: 00 02-08 23:59 :00 No [id number] HTN 1 tablet DAILY 1 tablet DAILY (route: oral) Med Classific ation: Cardiovas cular Therapy Agents omeprazole 20 mg capsule,del ayed release 01-14 00:00: 00 02-08 23:59 :00 No [id number] GERD 1 capsule 2 TIMES DAILY 1 capsule 2 TIMES DAILY (route: oral) Med Classific ation: Gastroint estinal Therapy Agents Plavix 75 mg tablet 01-14 00:00: 00 Yes [id number] CLOTING 1 tablet DAILY 1 tablet DAILY (route: oral) Med Classific ation: Hematolog ical Agents tamsulosin 0.4 mg capsule 01-14 00:00: 00 Yes [id number] BPH 1 capsule DAILY 1 capsule DAILY (route: oral) Med Classific ation: Genitouri nary Therapy torsemide 20 mg tablet 01-14 00:00: 00 02-08 23:59 :00 No [id number] EDEMA 1 tablet DAILY 1 tablet DAILY (route: oral) Med Classific ation: Cardiovas cular Therapy Agents tramadol 50 mg tablet 01-14 00:00: 00 Yes [id number] PAIN 0.5 tablet EVERY 6 HOURS 0.5 tablet EVERY 6 HOURS (route: oral) Med Classific ation: Analgesic , Anti-infl ammatory or Antipyret ic Tresiba FlexTouch U-100 insulin 100 unit/mL (3 mL) subcutaneou s pen 01-14 00:00: 00 02-08 23:59 :00 No [id number] DM2 64 In unit DAILY 64 In unit DAILY (route: subcutaneo us) Med Classific ation: Endocrine Trulicity 0.75 mg/0.5 mL subcutaneou s pen injector 01-14 00:00: 00 Yes [id number] DM2 0.5 mL WEEKLY 0.5 mL WEEKLY (route: subcutaneo us) Med Classific ation: Endocrine Zetia 10 mg tablet 01-14 00:00: 00 Yes [id number] CHOLESTEROL 1 tablet DAILY 1 tablet DAILY (route: oral) Med Classific ation: Cardiovas cular Therapy Agents ceftriaxone 1 gram intravenous solution 02-08 00:00: 00 03-08 23:59 :00 No [id number] infection 2 gram DAILY 2 gram DAILY (route: intravenou s) Med Classific ation: Anti-Infe ctive Agents sodium chloride 0.9 % intravenous solution 02-08 00:00: 00 Yes [id number] flush 10 mL DIRECTED 10 mL DIRECTED (route: intravenou s) Med Classific ation: Electroly te Balance-N utritiona l Products heparin, porcine (PF) 10 unit/mL intravenous syringe 02-08 00:00: 00 Yes [id number] flush 5 mL DIRECTED 5 mL DIRECTED (route: intravenou s) Med Classific ation: Hematolog ical Agents carvedilol 6.25 mg tablet 02-08 00:00: 00 Yes [id number] heart 1 tablet 2 TIMES DAILY 1 tablet 2 TIMES DAILY (route: oral) Med Classific ation: Cardiovas cular Therapy Agents Lasix 40 mg tablet 02-08 00:00: 00 Yes [id number] fluid 1 tablet 2 TIMES DAILY 1 tablet 2 TIMES DAILY (route: oral) Med Classific ation: Cardiovas cular Therapy Agents Tresiba U-100 Insulin 100 unit/mL subcutaneou s solution 02-08 00:00: 00 Yes [id number] blood sugar 10 unit BEDTIME 10 unit BEDTIME (route: subcutaneo us) Med Classific ation: Endocrine pantoprazol e 40 mg tablet,shayna yed release 02-08 00:00: 00 Yes [id number] gerd 1 tablet DAILY 1 tablet DAILY (route: oral) Med Classific ation: Gastroint estinal Therapy Agents Aldactone 100 mg tablet 02-08 00:00: 00 Yes [id number] BP 1 tablet DAILY 1 tablet DAILY (route: oral) Med Classific ation: Cardiovas cular Therapy Agents aspirin 81 mg tablet,shayna yed release 02-08 00:00: 00 Yes [id number] ANTICOAGULA NT 1 tablet DAILY 1 tablet DAILY (route: oral) Med Classific ation: Hematolog ical Agents ceftriaxone 2 gram intravenous solution 02-08 00:00: 00 03-08 23:59 :00 No [id number] CERVICAL OSTEOMYELIT IS 2 g DAILY 2 g DAILY (route: intravenou s) Med Classific ation: Anti-Infe ctive Agents Coreg 6.25 mg tablet 02-08 00:00: 00 Yes [id number] BP 1 tablet 2 TIMES DAILY 1 tablet 2 TIMES DAILY (route: oral) Med Classific ation: Cardiovas cular Therapy Agents lactulose 10 gram/15 mL (15 mL) oral solution 02-08 00:00: 00 Yes [id number] LAXATIVE 15 mL NEEDED 15 mL NEEDED (route: oral) Med Classific ation: Gastroint estinal Therapy Agents Lasix 40 mg tablet 02-08 00:00: 00 Yes [id number] DIURETIC 1 tablet DAILY 1 tablet DAILY (route: oral) Med Classific ation: Cardiovas cular Therapy Agents midodrine 10 mg tablet 02-08 00:00: 00 Yes [id number] BP 1 tablet 3 TIMES DAILY 1 tablet 3 TIMES DAILY (route: oral) Med Classific ation: Cardiovas cular Therapy Agents Novolog FlexPen U-100 Insulin aspart 100 unit/mL (3 mL) subcutaneou s 02-08 00:00: 00 Yes [id number] DM2 Per instruc tions BEFORE MEALS Per instructio ns BEFORE MEALS (route: subcutaneo us) Med Classific ation: Endocrine pantoprazol e 40 mg tablet,shayna yed release 02-08 00:00: 00 Yes [id number] REFLUX 1 tablet DAILY 1 tablet DAILY (route: oral) Med Classific ation: Gastroint estinal Therapy Agents Tresiba FlexTouch U-100 insulin 100 unit/mL (3 mL) subcutaneou s pen 02-08 00:00: 00 Yes [id number] DM2 10 unit BEDTIME 10 unit BEDTIME [...] PATIENT REPORTED WEIGHT AND NOTIFY CM / BAKED AND GRAPHITE INSPECTOR FOR MD NOTIFICATION FOR SIGNS AND [...] PATIENT REPORTED WEIGHT AND NOTIFY CM / BAKED AND GRAPHITE INSPECTOR FOR MD NOTIFICATION FOR SIGNS AND [...] End Date/Time Encounter Type Admission Type Attending [facility] Care Department Encounter ID Discharge Date Discharge Status Discharge Condition Discharge Reason Percent Goals Met 2023-01-14 00:00:00 2023-03-12 00:00:00 Outpatient GRETA DELGADO [facility] [id number] 2023-03-12 00:00:00 DISCHARGE TO HOME OR SELF CARE INDEPENDEN T IN THE [facility] OR [facility]- GOALS MET 100.00
[2024-09-05 10:42] LABS: MANUAL DIFF FLAG NO
[2024-09-05 11:01] LABS: White Blood Count 5.4 X10*3/uL (4.8-10.8)
[2024-09-05 11:02] LABS: Basophils Percent Auto 0.7 % (0-2); Eosinophils Absolute Auto 0.1 X10*3/uL (0.0-0.4); Eosinophils Percent Auto 2.6 % (0-4); Hematocrit 23.9 % (42.0-52.0); Hemoglobin 7.5 g/dl (14.0-18.0); Imm Gran Abs Auto 0.05 X10*3/uL (0.00-0.03); Imm Gran Pct Auto 0.9 % (0.0-0.4); Lymphocytes Absolute Auto 0.5 X10*3/uL (1.2-4.9); Mean Corpuscular HGB Conc 31.4 g/dl (31.0-36.0); Mean Corpuscular Hemoglobin 28.5 pg (27.0-33.0); Mean Corpuscular Volume 90.9 fL (80.0-98.0); Mean Platelet Volume 10.5 fL (9.4-12.4); Monocytes Absolute Auto 0.7 X10*3/uL (0.1-1.2); Monocytes Percent Auto 12.1 % (2-11); Neutrophils Percent Auto 74.7 % (45-73); Platelet Count 156 X10*3/uL (160-400); Red Blood Count 2.63 X10*6/uL (4.60-5.80); Red Cell Distribution Width 16.7 % (11.0-16.0)
== END 2024-09-05 07:34 | disposition home or self-care (01) ==
LOC: HO.LHD 07:33
PROVIDERS: Visit Provider Internal Medicine
DX: D64.9 Anemia, unspecified (principal)
CPT/HCPCS: 36415; 85025

== ENCOUNTER 2024-09-08 14:11 | Outpatient (AMB) | payer MEDICARE, SELFPAY ==
--- OUTSIDE RECORDS SUMMARY | 2024-09-08 14:13 | XMS_ITS | Clinical Summary ---
Author Organization Unknown Care Team Providers Care Drift Miner Name Role Phone RYAN TAPIA, LEI Unavailable Unavailable JOSE THORNE, GRETA Unavailable Unavailable Payers Payer Name Policy Type Policy Number Effective Date Expira tion Date MEDICARE.NGS.PDGM [id number] Problems Condition Name Condition Details Condition Category [...] 02-08 00:00: 00 ATHSCL HEART DISEASE OF [place] CORONARY ARTERY W/O ANG PCTRS Active 09-14 [...] MANAGEMENT OF VAD Active 02-08 00:00: 00 RETIREMENT (CURRENT) USE OF INSULIN Active 09-14 00:00: 00 LNG TRM (CRNT) USE INJECTABLE NON-INSULIN ANTIDIABETIC DRUGS Active 09-14 00:00: 00 RETIREMENT (CURRENT) USE OF ORAL 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 DRUGS Active 09-14 00:00: 00 RETIREMENT (CURRENT) USE OF ANTITHROMBOT ICS/ANTIPLAT ELETS Active [...] 01-14 00:00: 00 02-08 23:59 :00 No [id number] ANXIETY 1 tablet 2 TIMES DAILY 1 tablet 2 TIMES DAILY (route: oral) Med Classific ation: Central Nervous System Agents atorvastati n 80 mg tablet 01-14 00:00: 00 Yes [id number] CHOLESTEROL 1 tablet DAILY 1 tablet DAILY (route: oral) Med Classific ation: Cardiovas cular Therapy Agents bethanechol chloride 25 mg tablet 01-14 00:00: 00 Yes [id number] BLADDER 1 tablet 2 TIMES DAILY 1 tablet 2 TIMES DAILY (route: oral) Med Classific ation: Genitouri nary Therapy Farxiga 10 mg tablet 01-14 00:00: 00 Yes [id number] DM2 1 tablet DAILY 1 tablet DAILY (route: oral) Med Classific ation: Endocrine finasteride 5 mg tablet 01-14 00:00: 00 Yes [id number] BPH 1 tablet DAILY 1 tablet DAILY (route: oral) Med Classific ation: Genitouri nary Therapy gabapentin 400 mg capsule 01-14 00:00: 00 Yes [id number] NERVE PAIN 1 capsule 3 TIMES DAILY 1 capsule 3 TIMES DAILY (route: oral) Med Classific ation: Central Nervous System Agents insulin aspar prot-insuli n aspart 100 unit/mL (70-30) [facility] 01-14 00:00: 00 01-16 16:23 :30.0 57 No [id number] DM2 2-25 In unit 3 TIMES DAILY 2-25 In unit 3 TIMES DAILY (route: subcutaneo us) Med Classific ation: Endocrine iron 325 mg (65 mg iron) tablet 01-14 00:00: 00 Yes [id number] SUPPLEMENT 1 tablet DAILY 1 tablet DAILY (route: oral) Med Classific ation: Electroly te Balance-N utritiona l Products mecobalamin (vitamin B12) 1,000 mcg chewable tablet 01-14 00:00: 00 Yes [id number] SUPPLEMENT 1 tablet DAILY 1 tablet DAILY (route: oral) Med Classific ation: Electroly te Balance-N utritiona l Products metoprolol succinate ER 100 mg tablet,exte nded release 24 hr 01-14 00:00: 00 02-08 23:59 :00 No [id number] HTN 1 tablet DAILY 1 tablet DAILY (route: oral) Med Classific ation: Cardiovas cular Therapy Agents omeprazole 20 mg capsule,del ayed release 01-14 00:00: 00 02-08 23:59 :00 No [id number] GERD 1 capsule 2 TIMES DAILY 1 capsule 2 TIMES DAILY (route: oral) Med Classific ation: Gastroint estinal Therapy Agents Plavix 75 mg tablet 01-14 00:00: 00 Yes [id number] CLOTING 1 tablet DAILY 1 tablet DAILY (route: oral) Med Classific ation: Hematolog ical Agents tamsulosin 0.4 mg capsule 01-14 00:00: 00 Yes [id number] BPH 1 capsule DAILY 1 capsule DAILY (route: oral) Med Classific ation: Genitouri nary Therapy torsemide 20 mg tablet 01-14 00:00: 00 02-08 23:59 :00 No [id number] EDEMA 1 tablet DAILY 1 tablet DAILY (route: oral) Med Classific ation: Cardiovas cular Therapy Agents tramadol 50 mg tablet 01-14 00:00: 00 Yes [id number] PAIN 0.5 tablet EVERY 6 HOURS 0.5 tablet EVERY 6 HOURS (route: oral) Med Classific ation: Analgesic , Anti-infl ammatory or Antipyret ic Tresiba FlexTouch U-100 insulin 100 unit/mL (3 mL) subcutaneou s pen 01-14 00:00: 00 02-08 23:59 :00 No [id number] DM2 64 In unit DAILY 64 In unit DAILY (route: subcutaneo us) Med Classific ation: Endocrine Trulicity 0.75 mg/0.5 mL subcutaneou s pen injector 01-14 00:00: 00 Yes [id number] DM2 0.5 mL WEEKLY 0.5 mL WEEKLY (route: subcutaneo us) Med Classific ation: Endocrine Zetia 10 mg tablet 01-14 00:00: 00 Yes [id number] CHOLESTEROL 1 tablet DAILY 1 tablet DAILY (route: oral) Med Classific ation: Cardiovas cular Therapy Agents ceftriaxone 1 gram intravenous solution 02-08 00:00: 00 03-08 23:59 :00 No [id number] infection 2 gram DAILY 2 gram DAILY (route: intravenou s) Med Classific ation: Anti-Infe ctive Agents sodium chloride 0.9 % intravenous solution 02-08 00:00: 00 Yes [id number] flush 10 mL DIRECTED 10 mL DIRECTED (route: intravenou s) Med Classific ation: Electroly te Balance-N utritiona l Products heparin, porcine (PF) 10 unit/mL intravenous syringe 02-08 00:00: 00 Yes [id number] flush 5 mL DIRECTED 5 mL DIRECTED (route: intravenou s) Med Classific ation: Hematolog ical Agents carvedilol 6.25 mg tablet 02-08 00:00: 00 Yes [id number] heart 1 tablet 2 TIMES DAILY 1 tablet 2 TIMES DAILY (route: oral) Med Classific ation: Cardiovas cular Therapy Agents Lasix 40 mg tablet 02-08 00:00: 00 Yes [id number] fluid 1 tablet 2 TIMES DAILY 1 tablet 2 TIMES DAILY (route: oral) Med Classific ation: Cardiovas cular Therapy Agents Tresiba U-100 Insulin 100 unit/mL subcutaneou s solution 02-08 00:00: 00 Yes [id number] blood sugar 10 unit BEDTIME 10 unit BEDTIME (route: subcutaneo us) Med Classific ation: Endocrine pantoprazol e 40 mg tablet,shayna yed release 02-08 00:00: 00 Yes [id number] gerd 1 tablet DAILY 1 tablet DAILY (route: oral) Med Classific ation: Gastroint estinal Therapy Agents Aldactone 100 mg tablet 02-08 00:00: 00 Yes [id number] BP 1 tablet DAILY 1 tablet DAILY (route: oral) Med Classific ation: Cardiovas cular Therapy Agents aspirin 81 mg tablet,shayna yed release 02-08 00:00: 00 Yes [id number] ANTICOAGULA NT 1 tablet DAILY 1 tablet DAILY (route: oral) Med Classific ation: Hematolog ical Agents ceftriaxone 2 gram intravenous solution 02-08 00:00: 00 03-08 23:59 :00 No [id number] CERVICAL OSTEOMYELIT IS 2 g DAILY 2 g DAILY (route: intravenou s) Med Classific ation: Anti-Infe ctive Agents Coreg 6.25 mg tablet 02-08 00:00: 00 Yes [id number] BP 1 tablet 2 TIMES DAILY 1 tablet 2 TIMES DAILY (route: oral) Med Classific ation: Cardiovas cular Therapy Agents lactulose 10 gram/15 mL (15 mL) oral solution 02-08 00:00: 00 Yes [id number] LAXATIVE 15 mL NEEDED 15 mL NEEDED (route: oral) Med Classific ation: Gastroint estinal Therapy Agents Lasix 40 mg tablet 02-08 00:00: 00 Yes [id number] DIURETIC 1 tablet DAILY 1 tablet DAILY (route: oral) Med Classific ation: Cardiovas cular Therapy Agents midodrine 10 mg tablet 02-08 00:00: 00 Yes [id number] BP 1 tablet 3 TIMES DAILY 1 tablet 3 TIMES DAILY (route: oral) Med Classific ation: Cardiovas cular Therapy Agents Novolog FlexPen U-100 Insulin aspart 100 unit/mL (3 mL) subcutaneou s 02-08 00:00: 00 Yes [id number] DM2 Per instruc tions BEFORE MEALS Per instructio ns BEFORE MEALS (route: subcutaneo us) Med Classific ation: Endocrine pantoprazol e 40 mg tablet,shayna yed release 02-08 00:00: 00 Yes [id number] REFLUX 1 tablet DAILY 1 tablet DAILY (route: oral) Med Classific ation: Gastroint estinal Therapy Agents Tresiba FlexTouch U-100 insulin 100 unit/mL (3 mL) subcutaneou s pen 02-08 00:00: 00 Yes [id number] DM2 10 unit BEDTIME 10 unit BEDTIME [...] PATIENT REPORTED WEIGHT AND NOTIFY CM / SITE MONITOR FOR MD NOTIFICATION FOR SIGNS AND SYMPTOMS [...] PATIENT REPORTED WEIGHT AND NOTIFY CM / SITE MONITOR FOR MD NOTIFICATION FOR SIGNS AND SYMPTOMS [...] End Date/Time Encounter Type Admission Type Attending [facility] Care Department Encounter ID Discharge Date Discharge Status Discharge Condition Discharge Reason Percent Goals Met 2023-01-14 00:00:00 2023-03-12 00:00:00 Outpatient GRETA DELGADO [facility] [id number] 2023-03-12 00:00:00 DISCHARGE TO HOME OR SELF CARE INDEPENDEN T IN THE COMM[facility]ITY HH OR [facility]- GOALS MET 100.00
--- OUTSIDE RECORDS SUMMARY | 2024-09-08 14:13 | XMS_ITS | Continuity of Care Document ---
Author Organization [facility] Address [address] [address] Phone Care Team Providers Care Catering Director Name Role Phone NAMITA Jacobson RD, Shauna Unavailable Unavail able Advance Directives Directive Yes / No Effective Date File Name No Information Encounters Encounter Description Practice Location Reason(s) For Visit Diagnoses Date Provider Providers Copied on Encounter [facility], [address] [address], [place], [place], [id number], [place] tel:[phone] [facility] No Information Indira Villatoro. [address] [place], [address]. tel:[phone] Family History Family Member Type Diagnosis Age At Onset No Information Payers Payer name Insurance type Covered constitution party ID Authoriza tion(s) No Information Social [...]
--- OUTSIDE RECORDS SUMMARY | 2024-09-08 14:13 | XMS_ITS | Clinical Summary ---
Author Organization Unknown Care Team Providers Care Seat Cover Cutter Name Role Phone RYAN TAPIA, LEI Unavailable Unavailable JOSE THORNE, RGETA Unavailable Unavailable Payers Payer Name Policy Type Policy Number Effective Date Expira tion Date MEDICARE.NGS.PDGM [id number] Problems Condition Name Condition Details Condition Category [...] 02-08 00:00: 00 ATHSCL HEART DISEASE OF [place] CORONARY ARTERY W/O ANG PCTRS Active 09-14 [...] MANAGEMENT OF VAD Active 02-08 00:00: 00 CORRECTION (CURRENT) USE OF INSULIN Active 09-14 00:00: 00 LNG TRM (CRNT) USE INJECTABLE NON-INSULIN ANTIDIABETIC DRUGS Active 09-14 00:00: 00 CORRECTION (CURRENT) USE OF ORAL 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 DRUGS Active 09-14 00:00: 00 CORRECTION (CURRENT) USE OF ANTITHROMBOT ICS/ANTIPLAT ELETS Active [...] 01-14 00:00: 00 02-08 23:59 :00 No [id number] ANXIETY 1 tablet 2 TIMES DAILY 1 tablet 2 TIMES DAILY (route: oral) Med Classific ation: Central Nervous System Agents atorvastati n 80 mg tablet 01-14 00:00: 00 Yes [id number] CHOLESTEROL 1 tablet DAILY 1 tablet DAILY (route: oral) Med Classific ation: Cardiovas cular Therapy Agents bethanechol chloride 25 mg tablet 01-14 00:00: 00 Yes [id number] BLADDER 1 tablet 2 TIMES DAILY 1 tablet 2 TIMES DAILY (route: oral) Med Classific ation: Genitouri nary Therapy Farxiga 10 mg tablet 01-14 00:00: 00 Yes [id number] DM2 1 tablet DAILY 1 tablet DAILY (route: oral) Med Classific ation: Endocrine finasteride 5 mg tablet 01-14 00:00: 00 Yes [id number] BPH 1 tablet DAILY 1 tablet DAILY (route: oral) Med Classific ation: Genitouri nary Therapy gabapentin 400 mg capsule 01-14 00:00: 00 Yes [id number] NERVE PAIN 1 capsule 3 TIMES DAILY 1 capsule 3 TIMES DAILY (route: oral) Med Classific ation: Central Nervous System Agents insulin aspar prot-insuli n aspart 100 unit/mL (70-30) [facility] 00:00: 00 01-16 16:23 :30.0 57 No [id number] DM2 2-25 In unit 3 TIMES DAILY 2-25 In unit 3 TIMES DAILY (route: subcutaneo us) Med Classific ation: Endocrine iron 325 mg (65 mg iron) tablet 01-14 00:00: 00 Yes [id number] SUPPLEMENT 1 tablet DAILY 1 tablet DAILY (route: oral) Med Classific ation: Electroly te Balance-N utritiona l Products mecobalamin (vitamin B12) 1,000 mcg chewable tablet 01-14 00:00: 00 Yes [id number] SUPPLEMENT 1 tablet DAILY 1 tablet DAILY (route: oral) Med Classific ation: Electroly te Balance-N utritiona l Products metoprolol succinate ER 100 mg tablet,exte nded release 24 hr 01-14 00:00: 00 02-08 23:59 :00 No [id number] HTN 1 tablet DAILY 1 tablet DAILY (route: oral) Med Classific ation: Cardiovas cular Therapy Agents omeprazole 20 mg capsule,del ayed release 01-14 00:00: 00 02-08 23:59 :00 No [id number] GERD 1 capsule 2 TIMES DAILY 1 capsule 2 TIMES DAILY (route: oral) Med Classific ation: Gastroint estinal Therapy Agents Plavix 75 mg tablet 01-14 00:00: 00 Yes [id number] CLOTING 1 tablet DAILY 1 tablet DAILY (route: oral) Med Classific ation: Hematolog ical Agents tamsulosin 0.4 mg capsule 01-14 00:00: 00 Yes [id number] BPH 1 capsule DAILY 1 capsule DAILY (route: oral) Med Classific ation: Genitouri nary Therapy torsemide 20 mg tablet 01-14 00:00: 00 02-08 23:59 :00 No [id number] EDEMA 1 tablet DAILY 1 tablet DAILY (route: oral) Med Classific ation: Cardiovas cular Therapy Agents tramadol 50 mg tablet 01-14 00:00: 00 Yes [id number] PAIN 0.5 tablet EVERY 6 HOURS 0.5 tablet EVERY 6 HOURS (route: oral) Med Classific ation: Analgesic , Anti-infl ammatory or Antipyret ic Tresiba FlexTouch U-100 insulin 100 unit/mL (3 mL) subcutaneou s pen 01-14 00:00: 00 02-08 23:59 :00 No [id number] DM2 64 In unit DAILY 64 In unit DAILY (route: subcutaneo us) Med Classific ation: Endocrine Trulicity 0.75 mg/0.5 mL subcutaneou s pen injector 01-14 00:00: 00 Yes [id number] DM2 0.5 mL WEEKLY 0.5 mL WEEKLY (route: subcutaneo us) Med Classific ation: Endocrine Zetia 10 mg tablet 01-14 00:00: 00 Yes [id number] CHOLESTEROL 1 tablet DAILY 1 tablet DAILY (route: oral) Med Classific ation: Cardiovas cular Therapy Agents ceftriaxone 1 gram intravenous solution 02-08 00:00: 00 03-08 23:59 :00 No [id number] infection 2 gram DAILY 2 gram DAILY (route: intravenou s) Med Classific ation: Anti-Infe ctive Agents sodium chloride 0.9 % intravenous solution 02-08 00:00: 00 Yes [id number] flush 10 mL DIRECTED 10 mL DIRECTED (route: intravenou s) Med Classific ation: Electroly te Balance-N utritiona l Products heparin, porcine (PF) 10 unit/mL intravenous syringe 02-08 00:00: 00 Yes [id number] flush 5 mL DIRECTED 5 mL DIRECTED (route: intravenou s) Med Classific ation: Hematolog ical Agents carvedilol 6.25 mg tablet 02-08 00:00: 00 Yes [id number] heart 1 tablet 2 TIMES DAILY 1 tablet 2 TIMES DAILY (route: oral) Med Classific ation: Cardiovas cular Therapy Agents Lasix 40 mg tablet 02-08 00:00: 00 Yes [id number] fluid 1 tablet 2 TIMES DAILY 1 tablet 2 TIMES DAILY (route: oral) Med Classific ation: Cardiovas cular Therapy Agents Tresiba U-100 Insulin 100 unit/mL subcutaneou s solution 02-08 00:00: 00 Yes [id number] blood sugar 10 unit BEDTIME 10 unit BEDTIME (route: subcutaneo us) Med Classific ation: Endocrine pantoprazol e 40 mg tablet,shayna yed release 02-08 00:00: 00 Yes [id number] gerd 1 tablet DAILY 1 tablet DAILY (route: oral) Med Classific ation: Gastroint estinal Therapy Agents Aldactone 100 mg tablet 02-08 00:00: 00 Yes [id number] BP 1 tablet DAILY 1 tablet DAILY (route: oral) Med Classific ation: Cardiovas cular Therapy Agents aspirin 81 mg tablet,shayna yed release 02-08 00:00: 00 Yes [id number] ANTICOAGULA NT 1 tablet DAILY 1 tablet DAILY (route: oral) Med Classific ation: Hematolog ical Agents ceftriaxone 2 gram intravenous solution 02-08 00:00: 00 03-08 23:59 :00 No [id number] CERVICAL OSTEOMYELIT IS 2 g DAILY 2 g DAILY (route: intravenou s) Med Classific ation: Anti-Infe ctive Agents Coreg 6.25 mg tablet 02-08 00:00: 00 Yes [id number] BP 1 tablet 2 TIMES DAILY 1 tablet 2 TIMES DAILY (route: oral) Med Classific ation: Cardiovas cular Therapy Agents lactulose 10 gram/15 mL (15 mL) oral solution 02-08 00:00: 00 Yes [id number] LAXATIVE 15 mL NEEDED 15 mL NEEDED (route: oral) Med Classific ation: Gastroint estinal Therapy Agents Lasix 40 mg tablet 02-08 00:00: 00 Yes [id number] DIURETIC 1 tablet DAILY 1 tablet DAILY (route: oral) Med Classific ation: Cardiovas cular Therapy Agents midodrine 10 mg tablet 02-08 00:00: 00 Yes [id number] BP 1 tablet 3 TIMES DAILY 1 tablet 3 TIMES DAILY (route: oral) Med Classific ation: Cardiovas cular Therapy Agents Novolog FlexPen U-100 Insulin aspart 100 unit/mL (3 mL) subcutaneou s 02-08 00:00: 00 Yes [id number] DM2 Per instruc tions BEFORE MEALS Per instructio ns BEFORE MEALS (route: subcutaneo us) Med Classific ation: Endocrine pantoprazol e 40 mg tablet,shayna yed release 02-08 00:00: 00 Yes [id number] REFLUX 1 tablet DAILY 1 tablet DAILY (route: oral) Med Classific ation: Gastroint estinal Therapy Agents Tresiba FlexTouch U-100 insulin 100 unit/mL (3 mL) subcutaneou s pen 02-08 00:00: 00 Yes [id number] DM2 10 unit BEDTIME 10 unit BEDTIME [...] PATIENT REPORTED WEIGHT AND NOTIFY CM / COMMUNITY HEALTH PROGRAM COORDINATOR FOR MD NOTIFICATION FOR SIGNS AND SYMPTOMS [...] PATIENT REPORTED WEIGHT AND NOTIFY CM / COMMUNITY HEALTH PROGRAM COORDINATOR FOR MD NOTIFICATION FOR SIGNS AND SYMPTOMS [...] End Date/Time Encounter Type Admission Type Attending [facility] Care Department Encounter ID Discharge Date Discharge Status Discharge Condition Discharge Reason Percent Goals Met 2023-01-14 00:00:00 2023-03-12 00:00:00 Outpatient GRETA DELGADO [facility] [id number] 2023-03-12 00:00:00 DISCHARGE TO HOME OR SELF CARE INDEPENDEN T IN THE COMMUNITY HH OR [facility]- GOALS MET 100.00
--- OUTSIDE RECORDS SUMMARY | 2024-09-08 14:13 | XMS_ITS | Clinical Summary ---
Author Organization Unknown Care Team Providers Care Lead Neurodiagnostic Technologist Name Role Phone RYAN TPAIA, LEI Unavailable Unavailable AUSTIN RN, NEYDA Unavailable Unavailable GUZMAN RN, GUILLERMO Unavailable Unavailable NORMA THORNE, RAPHAEL Unavailable Unavailable Payers Payer Name Policy Type Policy Number Effective Date Expira tion Date MEDICARE - [place] [id number] [facility] [id number] Problems Condition Name Condition Details Condition Category [...] 11-12 00:00: 00 ATHSCL HEART DISEASE OF [place] CORONARY ARTERY W/O ANG PCTRS Active 11-12 [...] 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 11-12 00:00: 00 ASSISTED (CURRENT) USE OF ASPIRIN Active 11-12 00:00: 00 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 DRUGS Active 11-12 00:00: 00 ASSISTED (CURRENT) USE OF INSULIN Active 11-12 00:00: [...] 10-21 00:00: 00 02-01 23:59 :00 No [id number] Per instruc tions AT BEDTIME Per instructio ns AT BEDTIME (route: subcutaneo us) Med Classific ation: Endocrine bethanechol chloride 25 mg tablet 10-18 00:00: 00 04-25 00:00 :00 No [id number] Per instruc tions TWICE DAILY Per instructio ns TWICE DAILY (route: oral) Med Classific ation: Genitouri nary Therapy Farxiga 10 mg tablet 2-04 00:00: 00 08-01 23:59 :00 No [id number] Per instruc tions DAILY Per instructio ns DAILY (route: oral) Med Classific ation: Endocrine ezetimibe 10 mg tablet 1-30 00:00: 00 08-01 23:59 :00 No [id number] Unavailable Per instruc tions DAILY Per instructio ns DAILY (route: oral) Med Classific ation: Cardiovas cular Therapy Agents Novolog FlexPen U-100 Insulin aspart 100 unit/mL (3 mL) subcutane s 1- 00:00: 00 03-21 23:59 :00 No [id number] Per instruc tions 3 TIMES DAILY Per instructio ns 3 TIMES DAILY (route: subcutaneo us) Med Classific ation: Endocrine Basaglar KwikPen U-100 Insulin 100 unit/mL (3 mL) [facility] 1-25 00:00: 00 11-12 23:59 :00 No [id number] Unavailable Per instruc tions SUBCUTANEO US ONCE EVERY Per instructio ns SUBCUTANEO US ONCE EVERY (route: subcutaneo us) Med Classific ation: Endocrine alprazolam 0.5 mg tablet 1-22 00:00: 00 02-01 23:59 :00 No [id number] Unavailable Per instruc tions TWICE DAILY NEEDED Per instructio ns TWICE DAILY NEEDED (route: oral) Med Classific ation: Central Nervous System Agents aspirin 81 mg tablet,shayna yed release - 00:00: 00 04-25 23:59 :00 No [id number] 1 tablet DAILY 1 tablet DAILY (route: oral) Med Classific ation: Hematolog ical Agents atorvastati n 80 mg tablet 3- 00:00: 00 04-25 23:59 :00 No [id number] 1 tablet BEDTIME 1 tablet BEDTIME (route: oral) Med Classific ation: Cardiovas cular Therapy Agents carvedilol 6.25 mg tablet 11-12 00:00: 00 03-01 23:59 :00 No [id number] 1 tablet 2 TIMES DAILY 1 tablet 2 TIMES DAILY (route: oral) Med Classific ation: Cardiovas cular Therapy Agents finasteride 5 mg tablet 11-12 00:00: 00 08-01 23:59 :00 No [id number] 1 tablet DAILY 1 tablet DAILY (route: oral) Med Classific ation: Genitouri nary Therapy Flomax 0.4 mg capsule 11-12 00:00: 00 08-01 23:59 :00 No [id number] 1 capsule DAILY 1 capsule DAILY (route: oral) Med Classific ation: Genitouri nary Therapy gabapentin 400 mg capsule 11-12 00:00: 00 02-01 23:59 :00 No [id number] 1 capsule 2 TIMES DAILY 1 capsule 2 TIMES DAILY (route: oral) Med Classific ation: Central Nervous System Agents iron 325 mg (65 mg iron) tablet 11-12 00:00: 00 08-01 23:59 :00 No [id number] 1 tablet DAILY 1 tablet DAILY (route: oral) Med Classific ation: Electroly te Balance-N utritiona l Products pantoprazol e 40 mg tablet,shayna yed release 11-12 00:00: 00 08-01 23:59 :00 No [id number] 1 tablet DAILY 1 tablet DAILY (route: oral) Med Classific ation: Gastroint estinal Therapy Agents spironolact one 50 mg tablet 11-12 00:00: 00 02-01 23:59 :00 No [id number] 1 tablet DAILY 1 tablet DAILY (route: oral) Med Classific ation: Cardiovas cular Therapy Agents Trulicity 0.75 mg/0.5 mL subcutaneou s pen injector 11-12 00:00: 00 08-01 23:59 :00 No [id number] 0.5 mL WEEKLY 0.5 mL WEEKLY (route: subcutaneo us) Med Classific ation: Endocrine Vitamin B-12 500 mcg tablet 11-12 00:00: 00 02-01 00:00 :00 No [id number] 2 tablet BEDTIME 2 tablet BEDTIME (route: oral) Med Classific ation: Electroly te Balance-N utritiona l Products alprazolam 0.5 mg tablet 02-08 00:00: 00 04-25 23:59 :00 No [id number] 1 tablet 2 TIMES DAILY 1 tablet 2 TIMES DAILY (route: oral) Med Classific ation: Central Nervous System Agents bumetanide 1 mg tablet 02-01 00:00: 00 02-17 23:59 :00 No [id number] 1 mg DAILY 1 mg DAILY (route: oral) Med Classific ation: Cardiovas cular Therapy Agents ciprofloxac in 500 mg tablet 02-01 00:00: 00 02-02 23:59 :00 No [id number] 1 tablet DAILY 1 tablet DAILY (route: oral) Med Classific ation: Anti-Infe ctive Agents cyanocobala min (vit B-12) 500 mcg tablet 02-01 00:00: 00 08-01 23:59 :00 No [id number] 2 tablet BEDTIME 2 tablet BEDTIME (route: oral) Med Classific ation: Electroly te Balance-N utritiona l Products gabapentin 400 mg capsule 02-08 00:00: 00 04-25 23:59 :00 No [id number] 1 capsule 2 TIMES DAILY 1 capsule 2 TIMES DAILY (route: oral) Med Classific ation: Central Nervous System Agents lactulose 20 gram/30 mL oral solution 02-01 00:00: 00 04-25 23:59 :00 No [id number] 45 mL 3 TIMES DAILY 45 mL 3 TIMES DAILY (route: oral) Med Classific ation: Gastroint estinal Therapy Agents Tresiba FlexTouch U-100 insulin 100 unit/mL (3 mL) subcutaneou s pen 02-01 00:00: 00 08-01 23:59 :00 No [id number] 6 unit BEDTIME 6 unit BEDTIME (route: subcutaneo us) Med Classific ation: Endocrine bumetanide 1 mg tablet 02-17 00:00: 00 02-21 23:59 :00 No [id number] 2 tablet DAILY 2 tablet DAILY (route: oral) Med Classific ation: Cardiovas cular Therapy Agents bumetanide 1 mg tablet 02-17 00:00: 00 03-01 23:59 :00 No [id number] 1 tablet 2 TIMES DAILY 1 tablet 2 TIMES DAILY (route: oral) Med Classific ation: Cardiovas cular Therapy Agents spironolact one 25 mg tablet 03-01 00:00: 00 04-25 00:00 :00 No [id number] 2 tablet DAILY 2 tablet DAILY (route: oral) Med Classific ation: Cardiovas cular Therapy Agents torsemide 20 mg tablet 03-01 00:00: 00 04-25 00:00 :00 No [id number] 2 tablet DAILY 2 tablet DAILY (route: oral) Med Classific ation: Cardiovas cular Therapy Agents midodrine 10 mg tablet 03-01 00:00: 00 08-01 23:59 :00 No [id number] 1 tablet DIRECTED 1 tablet DIRECTED (route: oral) Med Classific ation: Cardiovas cular Therapy Agents Humulin R Regular U-100 Insulin 100 unit/mL injection solution 03-21 00:00: 00 04-25 00:00 :00 No [id number] 20 unit 3 TIMES DAILY 20 unit 3 TIMES DAILY (route: injection) Med Classific ation: Endocrine Basaglar KwikPen U-100 Insulin 100 unit/mL (3 mL) [facility] 04-25 00:00: 00 08-01 23:59 :00 No [id number] 1 unit 3 TIMES DAILY 1 unit 3 TIMES DAILY (route: subcutaneo us) Med Classific ation: Endocrine bumetanide 1 mg tablet 04-25 00:00: 00 08-01 23:59 :00 No [id number] 1 tablet DAILY 1 tablet DAILY (route: oral) Med Classific ation: Cardiovas cular Therapy Agents spironolact one 25 mg tablet 04-25 00:00: 00 08-01 23:59 :00 No [id number] 1 tablet DAILY 1 tablet DAILY (route: oral) Med Classific ation: Cardiovas cular Therapy Agents atorvastati n 80 mg tablet 04-26 00:00: 00 08-01 23:59 :00 No [id number] 0.5 tablet BEDTIME 0.5 tablet BEDTIME (route: oral) Med Classific ation: Cardiovas cular Therapy Agents carvedilol 6.25 mg tablet 04-26 00:00: 00 08-01 23:59 :00 No [id number] 1 tablet 2 TIMES DAILY 1 tablet 2 TIMES DAILY (route: oral) Med Classific ation: Cardiovas cular Therapy Agents alprazolam 0.5 mg tablet 04-26 00:00: 00 08-01 23:59 :00 No [id number] 1 tablet 2 TIMES DAILY 1 tablet 2 TIMES DAILY (route: oral) Med Classific ation: Central Nervous System Agents gabapentin 300 mg capsule 04-26 00:00: 00 08-01 23:59 :00 No [id number] 1 capsule 2 TIMES DAILY 1 capsule 2 TIMES DAILY (route: oral) Med Classific ation: Central Nervous System Agents cyanocobala min (vit B-12) 500 mcg tablet 04-26 00:00: 00 08-01 23:59 :00 No [id number] 2 tablet BEDTIME 2 tablet BEDTIME (route: oral) Med Classific ation: Electroly te Balance-N utritiona l Products lactulose 10 gram/15 mL oral solution 04-26 00:00: 00 08-01 23:59 :00 No [id number] 30 mL 2 TIMES DAILY 30 mL [...] CARE WILL BE ESTABLISHED THAT MEETS PATIENT'S CARE HOME NEEDS AND INCLUDES PATIENT GOAL FOR HOME [...] End Date/Time Encounter Type Admission Type Attending [facility] Care Facility Care Department Encounter ID Discharge Date Discharge Status Discharge Condition Discharge Reason Percent Goals Met 2023-11-13 00:00:00 2024-05-10 00:00:00 [facility] [id number] 2024-05-10 00:00:00 DISCHARGED /TRANSFERR ED TO A [facility] FOR INPATIENT CARE REMAINS INPATIENT AT TIME OF DISCHARGE REMAINS IN INPATIENT FACILITY AT END OF CERT PERIOD 75.76
--- OUTSIDE RECORDS SUMMARY | 2024-09-08 14:13 | XMS_ITS | Clinical Summary ---
Author Organization Unknown Care Team Providers Care Director Microbiology Name Role Phone RYAN TAPIA, LEI Unavailable Unavailable AUSTIN RN, NEYDA Unavailable Unavailable GUZMAN RN, GUILLERMO Unavailable Unavailable NORMA THORNE, RAPHAEL Unavailable Unavailable Payers Payer Name Policy Type Policy Number Effective Date Expira tion Date MEDICARE - N[place] [id number] [facility] [id number] Problems Condition Name Condition Details Condition Category [...] 11-12 00:00: 00 ATHSCL HEART DISEASE OF [place] CORONARY ARTERY W/O ANG PCTRS Active 11-12 [...] USE OF ASPIRIN Active 11-12 00:00: 00 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 [...] 10-21 00:00: 00 02-01 23:59 :00 No [id number] Per instruc tions AT BEDTIME Per instructio ns AT BEDTIME (route: subcutaneo us) Med Classific ation: Endocrine bethanechol chloride 25 mg tablet 10-18 00:00: 00 04-25 00:00 :00 No [id number] Per instruc tions TWICE DAILY Per instructio ns TWICE DAILY (route: oral) Med Classific ation: Genitouri nary Therapy Farxiga 10 mg tablet 2-04 00:00: 00 08-01 23:59 :00 No [id number] Per instruc tions DAILY Per instructio ns DAILY (route: oral) Med Classific ation: Endocrine ezetimibe 10 mg tablet 1-30 00:00: 00 08-01 23:59 :00 No [id number] Unavailable Per instruc tions DAILY Per instructio ns DAILY (route: oral) Med Classific ation: Cardiovas cular Therapy Agents Novolog FlexPen U-100 Insulin aspart 100 unit/mL (3 mL) subcutane s 1- 00:00: 00 03-21 23:59 :00 No [id number] Per instruc tions 3 TIMES DAILY Per instructio ns 3 TIMES DAILY (route: subcutaneo us) Med Classific ation: Endocrine Basaglar KwikPen U-100 [facility]ulin 100 unit/mL (3 mL) [facility] 00:00: 00 11-12 23:59 :00 No [id number] Unavailable Per instruc tions SUBCUTANEO US ONCE EVERY Per instructio ns SUBCUTANEO US ONCE EVERY (route: subcutaneo us) Med Classific ation: Endocrine alprazolam 0.5 mg tablet 1-22 00:00: 00 02-01 23:59 :00 No [id number] Unavailable Per instruc tions TWICE DAILY NEEDED Per instructio ns TWICE DAILY NEEDED (route: oral) Med Classific ation: Central Nervous System Agents aspirin 81 mg tablet,shayna yed release - 00:00: 00 04-25 23:59 :00 No [id number] 1 tablet DAILY 1 tablet DAILY (route: oral) Med Classific ation: Hematolog ical Agents atorvastati n 80 mg tablet 3- 00:00: 00 04-25 23:59 :00 No [id number] 1 tablet BEDTIME 1 tablet BEDTIME (route: oral) Med Classific ation: Cardiovas cular Therapy Agents carvedilol 6.25 mg tablet 11-12 00:00: 00 03-01 23:59 :00 No [id number] 1 tablet 2 TIMES DAILY 1 tablet 2 TIMES DAILY (route: oral) Med Classific ation: Cardiovas cular Therapy Agents finasteride 5 mg tablet 11-12 00:00: 00 08-01 23:59 :00 No [id number] 1 tablet DAILY 1 tablet DAILY (route: oral) Med Classific ation: Genitouri nary Therapy Flomax 0.4 mg capsule 11-12 00:00: 00 08-01 23:59 :00 No [id number] 1 capsule DAILY 1 capsule DAILY (route: oral) Med Classific ation: Genitouri nary Therapy gabapentin 400 mg capsule 11-12 00:00: 00 02-01 23:59 :00 No [id number] 1 capsule 2 TIMES DAILY 1 capsule 2 TIMES DAILY (route: oral) Med Classific ation: Central Nervous System Agents iron 325 mg (65 mg iron) tablet 11-12 00:00: 00 08-01 23:59 :00 No [id number] 1 tablet DAILY 1 tablet DAILY (route: oral) Med Classific ation: Electroly te Balance-N utritiona l Products pantoprazol e 40 mg tablet,shayna yed release 11-12 00:00: 00 08-01 23:59 :00 No [id number] 1 tablet DAILY 1 tablet DAILY (route: oral) Med Classific ation: Gastroint estinal Therapy Agents spironolact one 50 mg tablet 11-12 00:00: 00 02-01 23:59 :00 No [id number] 1 tablet DAILY 1 tablet DAILY (route: oral) Med Classific ation: Cardiovas cular Therapy Agents Trulicity 0.75 mg/0.5 mL subcutaneou s pen injector 11-12 00:00: 00 08-01 23:59 :00 No [id number] 0.5 mL WEEKLY 0.5 mL WEEKLY (route: subcutaneo us) Med Classific ation: Endocrine Vitamin B-12 500 mcg tablet 11-12 00:00: 00 02-01 00:00 :00 No [id number] 2 tablet BEDTIME 2 tablet BEDTIME (route: oral) Med Classific ation: Electroly te Balance-N utritiona l Products alprazolam 0.5 mg tablet 02-08 00:00: 00 04-25 23:59 :00 No [id number] 1 tablet 2 TIMES DAILY 1 tablet 2 TIMES DAILY (route: oral) Med Classific ation: Central Nervous System Agents bumetanide 1 mg tablet 02-01 00:00: 00 02-17 23:59 :00 No [id number] 1 mg DAILY 1 mg DAILY (route: oral) Med Classific ation: Cardiovas cular Therapy Agents ciprofloxac in 500 mg tablet 02-01 00:00: 00 02-02 23:59 :00 No [id number] 1 tablet DAILY 1 tablet DAILY (route: oral) Med Classific ation: Anti-Infe ctive Agents cyanocobala min (vit B-12) 500 mcg tablet 02-01 00:00: 00 08-01 23:59 :00 No [id number] 2 tablet BEDTIME 2 tablet BEDTIME (route: oral) Med Classific ation: Electroly te Balance-N utritiona l Products gabapentin 400 mg capsule 02-08 00:00: 00 04-25 23:59 :00 No [id number] 1 capsule 2 TIMES DAILY 1 capsule 2 TIMES DAILY (route: oral) Med Classific ation: Central Nervous System Agents lactulose 20 gram/30 mL oral solution 02-01 00:00: 00 04-25 23:59 :00 No [id number] 45 mL 3 TIMES DAILY 45 mL 3 TIMES DAILY (route: oral) Med Classific ation: Gastroint estinal Therapy Agents Tresiba FlexTouch U-100 insulin 100 unit/mL (3 mL) subcutaneou s pen 02-01 00:00: 00 08-01 23:59 :00 No [id number] 6 unit BEDTIME 6 unit BEDTIME (route: subcutaneo us) Med Classific ation: Endocrine bumetanide 1 mg tablet 02-17 00:00: 00 02-21 23:59 :00 No [id number] 2 tablet DAILY 2 tablet DAILY (route: oral) Med Classific ation: Cardiovas cular Therapy Agents bumetanide 1 mg tablet 02-17 00:00: 00 03-01 23:59 :00 No [id number] 1 tablet 2 TIMES DAILY 1 tablet 2 TIMES DAILY (route: oral) Med Classific ation: Cardiovas cular Therapy Agents spironolact one 25 mg tablet 03-01 00:00: 00 04-25 00:00 :00 No [id number] 2 tablet DAILY 2 tablet DAILY (route: oral) Med Classific ation: Cardiovas cular Therapy Agents torsemide 20 mg tablet 03-01 00:00: 00 04-25 00:00 :00 No [id number] 2 tablet DAILY 2 tablet DAILY (route: oral) Med Classific ation: Cardiovas cular Therapy Agents midodrine 10 mg tablet 03-01 00:00: 00 08-01 23:59 :00 No [id number] 1 tablet DIRECTED 1 tablet DIRECTED (route: oral) Med Classific ation: Cardiovas cular Therapy Agents Humulin R Regular U-100 Insulin 100 unit/mL injection solution 03-21 00:00: 00 04-25 00:00 :00 No [id number] 20 unit 3 TIMES DAILY 20 unit 3 TIMES DAILY (route: injection) Med Classific ation: Endocrine Basaglar KwikPen U-100 Insulin 100 unit/mL (3 mL) [facility] 00:00: 00 08-01 23:59 :00 No [id number] 1 unit 3 TIMES DAILY 1 unit 3 TIMES DAILY (route: subcutaneo us) Med Classific ation: Endocrine bumetanide 1 mg tablet 04-25 00:00: 00 08-01 23:59 :00 No [id number] 1 tablet DAILY 1 tablet DAILY (route: oral) Med Classific ation: Cardiovas cular Therapy Agents spironolact one 25 mg tablet 04-25 00:00: 00 08-01 23:59 :00 No [id number] 1 tablet DAILY 1 tablet DAILY (route: oral) Med Classific ation: Cardiovas cular Therapy Agents atorvastati n 80 mg tablet 04-26 00:00: 00 08-01 23:59 :00 No [id number] 0.5 tablet BEDTIME 0.5 tablet BEDTIME (route: oral) Med Classific ation: Cardiovas cular Therapy Agents carvedilol 6.25 mg tablet 04-26 00:00: 00 08-01 23:59 :00 No [id number] 1 tablet 2 TIMES DAILY 1 tablet 2 TIMES DAILY (route: oral) Med Classific ation: Cardiovas cular Therapy Agents alprazolam 0.5 mg tablet 04-26 00:00: 00 08-01 23:59 :00 No [id number] 1 tablet 2 TIMES DAILY 1 tablet 2 TIMES DAILY (route: oral) Med Classific ation: Central Nervous System Agents gabapentin 300 mg capsule 04-26 00:00: 00 08-01 23:59 :00 No [id number] 1 capsule 2 TIMES DAILY 1 capsule 2 TIMES DAILY (route: oral) Med Classific ation: Central Nervous System Agents cyanocobala min (vit B-12) 500 mcg tablet 04-26 00:00: 00 08-01 23:59 :00 No [id number] 2 tablet BEDTIME 2 tablet BEDTIME (route: oral) Med Classific ation: Electroly te Balance-N utritiona l Products lactulose 10 gram/15 mL oral solution 04-26 00:00: 00 08-01 23:59 :00 No [id number] 30 mL 2 TIMES DAILY 30 mL [...] Date/Time Encounter Type Admission Type Attending [facility] Care Facility Care Department Encounter ID Discharge Date Discharge Status Discharge Condition Discharge Reason Percent Goals Met 2023-11-13 00:00:00 2024-05-10 00:00:00 [facility] [id number] 2024-05-10 00:00:00 DISCHARGED /TRANSFERR ED TO A [facility] FOR INPATIENT CARE REMAINS INPATIENT AT TIME OF DISCHARGE REMAINS IN INPATIENT FACILITY AT END OF CERT PERIOD 75.76
--- NOTE | 2024-09-08 14:19 | MHC.OFFVIS ---
Vital Signs 09/08/24 14:22 Height 5 ft 9 in Weight 182 lb BMI 26.9 BP 87/44 L Blood Pressure Location Lt brachial Position Sitting Pulse 66 Intake Visit Reasons: follow up Intake Note: Patient follow up for ER Patient cc: feeling a little ball on his rectum and is discomfort. Tooth Cutter Spur Required: No Accompanied by: Family/Other Allergies KARL Inhibitors Allergy (Severe, Verified 09/30/24 05:01) Angioedema dextran 40 (DEXTRAN 40) Allergy (Intermediate, Verified 09/30/24 05:01) tachycardia latex (LATEX) Allergy (Mild, Verified 09/30/24 05:01) BLISTERS lisinopril (From Zestril) Allergy (Mild, Verified 09/30/24 05:01) Unknown Iodinated Contrast Media (CONTRAST,IV) Allergy (Unknown, Verified 09/30/24 05:01) UNKNOWN Medication List - Last Reconciled 09/08/24 by Arsenio Burns MD alprazolam 0.5 mg PO BID PRN 30 days atorvastatin 40 mg (1/2 x 80 mg) PO BEDTIME blood pressure test kit-large As directed blood sugar diagnostic (FreeStyle Test strips) three times per day blood sugar diagnostic (Prodigy No Coding strips) Test 3 times a day blood-glucose meter (FreeStyle Lite Meter kit) As directed blood-glucose meter (Prodigy Pocket Meter kit) Testing three times per day bumetanide 1 mg PO BID 30 days carvedilol 6.25 mg PO BID 30 days cyanocobalamin (vitamin B-12) 1,000 mcg (2 x 500 mcg) PO BEDTIME dapagliflozin propanediol (Farxiga) 10 mg PO DAILY 30 days diclofenac sodium 1% 2 grams topical QID dulaglutide (Trulicity) 0.75 mg (0.5 mL) subcut MO ezetimibe (Zetia) 10 mg PO DAILY ferrous sulfate 325 mg PO DAILY finasteride (Proscar) 5 mg PO DAILY 90 days flash glucose scanning reader (built.ioStyle Marleni 14 Day [place]) As directed flash glucose sensor (FreeStyle Marleni 14 Day Sensor kit) As directed gabapentin 300 mg PO BID 30 days insulin degludec (Tresiba FlexTouch U-100 insulin) 6 units subcut BEDTIME insulin lispro (Admelog SoloStar U-100 Insulin lispro) 1 sliding scale dose subcut TID 30 days lactulose 30 mL PO BID lancets (FreeStyle Lancets) As directed three times per day midodrine 10 mg PO TID 30 days pantoprazole 40 mg PO DAILY pen needle, diabetic (BD Gifty 2nd Gen Pen Needle) 4 times a day pen needle, diabetic (BD Ultra-Fine Gifty Pen Needle) As directed rifaximin 550 mg PO BID 90 days spironolactone 25 mg PO DAILY 30 days tamsulosin 0.4 mg PO DAILY 90 days HPI HPI follow up: Details: GI CLINIC VISIT FOR THIS 79-YEAR-OLD MALE FOR FOLLOW-UP OF CIRRHOSIS AND IRON DEFICIENCY ANEMIA Patient was hospitalized from to 08/18/24 with AMS Pt is an 79-year-old male with a past medical history significant for hepatic cirrhosis complicated by esophageal varices and ascites, insulin-dependent type 2 diabetes, diabetic 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, hypertension, hyperlipidemia, a history of prostate cancer, obstructive sleep apnea (ANUJA) on CPAP, chronic iron deficiency anemia requiring frequent transfusions , a history of coronary artery disease (CAD) no longer on antiplatelets, chronic thrombocytopenia due to liver disease, and status post transcatheter aortic valve replacement (TAVR), who presented to the ED via EMS due to confusion. He reports that he has been having insomnia for the past 3 days due to lower extremity pain secondary to pitting edema. He was started on Bumex which has helped and the pain is longer present. He denies any recent falls. He admits that he has not been taking his lactulose for hepatic encephalopathy like the side effect diarrhea with it. hospital course: The patient presented with altered mental status in setting of elevated ammonia level and Yamilet. He was admitted for mangement of hepatic encephalopathy and given lactulose and made a rather rapid recovery. His mental status is back to normal, It is reported that he is not compliant with medicine including lactulose. He is advised to be compliant with his meds. Additionally, he will be prescribed Riffaximin to help prevent rehospitalization from hepatic encephalopathy Pancytopenia with severe anemia with H/H 6.6/22.4% (baseline HGB: usu around 9 g/dl) , platelets 111. PT 14.4, INR 1.2, PTT 28.8. Renal function baseline, electrolyte levels normal. Hepatic function baseline. Urinalysis unremarkable Stool occult blood positive. CT of the left humerus shows a comminuted slightly impacted fracture of left humeral neck and head with associated shoulder joint effusion and associated soft tissue hematoma. EKG shows atrial sensed ventricular paced rhythm with prolonged AV leeanne conduction, rate 67, no ST/T-wave abnormalities. In the ED, transfused 2 units packed red blood cells, IV PPI, octreotide. acute on chronic blood loss anemia stool occult blood positive. s/p blood transfusion. seen by GI - feels anemia r/t to acute blood loss from hematoma from humerous fracture - may need outpatient scope in the future. but H/H has remained stable and can't lay on left side for colonoscopy with broken arm. outpatient follow up with PCP/GI ??TODAY'S VISIT: Seen at [facility] on 09/01/24 and transfused 2 U of PRBC for anemia. Getting 2 U of PRBC every 2 to 3 weeks Had 1 U on 09/06/24 Pt admits to having dark stools and denies BRB per rectum Noted a lump/? hemorrhoid in the rectum and requesting a prescription for preparation H Denies confusion, fever or chills or dizziness Wt loss of 17 lbs and gained 4 lbs Uses a walker due to trouble walking. Has sleep apnea and uses a CPAP machine PAST VISITS: Complains of rectal discomfort. Had abdominal pain, nausea, vomting and diarrhea - seen at [facility] and was discharged after 12-13 hrs Symptoms subsided. Recurrent symptoms the following week. Continues to have intermittent episodes. Started taking senna. Stomach starts to make loud noises followed by diarrhea. Complains of lower abdominal pain worse with BM. He denies worsening of pain with eating Had IV iron infusions from May to Oct, 2021 (had 11 infusions) Notes fatigue and dyspnea on mild exertion and has normal BMs without blood. Has gained 3 to 4 lbs over the past few months. Saw Dr Lopez In [place] on 09/24/20 and scheduled for a Cardiac Cath with Dr Eveline Meneses at [facility] on 01/08/22. Endoscopic bx results were reviewed. Notes intermittent fatigue. Taking iron and Vitamin B12. Has been vaccinated for COVID 7 months ago. Continues to have acid reflux intermittently when he takes spicy food. Trying to keep snacks away to maintain his weight Pt was started by Dr Nielsen on Ferrlecit 125 mg IV weekly ? LABS IN [facility]:?04/05/20 H&H OF 10.4 & 32.8, PLATELET 101, ? 11/25/19 INR 1.2 ? IRON STUDIES CONSISTENT WITH IRON DEFICIENCY ANEMIA WITH FERRITIN OF 16 ? NORMAL LFTS WITH ALBUMIN OF 4.5. ? LIVER FIBROSIS SCORE OF 0.79, LIVER FIBROSIS STAGE F4, NECROINFLAMMATORY SCORE 0.06. ? HEPATITIS B AND C SEROLOGIES WERE NEGATIVE ? SHAVON, AND CELIAC SEROLOGIES WERE NEGATIVE ?IMAGING STUDIES: Oct, 2021 ABD US SHOWED: LIVER: There is trace free fluid adjacent to the liver. The liver contour is normal. Liver is diffusely echogenic. No focal hepatic lesion. There is no intrahepatic biliary duct dilatation seen. Normal hepatopedal flow seen in the middle portal vein. The portal vein may be enlarged. GALLBLADDER: The gallbladder is physiologically distended. Multiple mobile gallstones are present. No evidence of pericholecystic fluid. 01/12/20 ABDOMINAL MRI SHOWED: ? LIVER, GALLBLADDER, AND BILIARY TREE: The enlarged, cirrhotic liver has ? slightly nodular surface contour. The right hepatic lobe measures 23 cm ? in craniocaudal dimension. Liver parenchyma exhibits slightly decreased ? signal on [id number] compared to in-phase images, suggestive of mild ? steatosis. There is no correlate to the imaging finding in the left ? lobe observed on the ultrasound of 12/27/2019. There are no hepatic ? masses. The finding on the recent ultrasound exam was likely due to the ? mild heterogeneity of the parenchyma. No arterial phase hyperenhancing ? lesion. Gallbladder is physiologically distended and contains a few ? calculi. The mild, diffuse thickening of the gallbladder wall is likely ? reactive to the hepatic disease. No pericholecystic fluid. Common bile duct is 0.4 cm diameter. ?ENDOSCOPIC STUDIES; 04/30/21? EGD SHOWED: ESOPHAGUS: GE junction at 40cms.? Grade 2-3 four column varices from 30 to 40 cms. band ligation x 3 was performed with flattening of the varices. STOMACH:??Moderate portal gastropathy. A 1.5 cms ulcerated polyp/nodule in the antrum partially removed with a hot snare - Bx showed:?Hyperplastic mucosal polyp, inflamed and ulcerated. Plan:? Patient has an appointment on 06/13/21 in the GI Clinic with Arsenio Burns M.D. Above findings were reviewed with the patient 08/20/20 EGD AND COLON SHOWED: ? ESOPHAGUS: Grade 2-3 four column varices from 25 to 40 cms? - band ligation x 3 was performed with flattening of the varices. ? STOMACH: Moderate portal gastropathy. A 2 cms nodule in the gastric antrum.? Biopsies were obtained. ? No significant gastric varices and Grade 2 flap valve on retroflexed examination of the cardia. ? Colonoscopy Findings: ? Six medium sized polyps removed ? Moderate diverticulosis seen in the left colon ? Mild radiation proctitis in the distal rectum without bleeding and moderate hemorrhoids on retroflexed exam. ? Iron deficiency anemia most likely related to slow GI blood loss from multiple large colon polyps and gastric polyps. ? Plan: ? Patient has an appointment on 09/03/20 in the GI Clinic with Arsenio Burns M.D.-. ? Repeat Colonoscopy interval based on path results - in 1-2 years if polyps are adenomatous. ? Above findings were reviewed with the patient. ?BIOPSIES SHOWED: ? A.? Stomach, nodule, biopsy:? Antral-type mucosa with mild chronic inactive inflammation and surface hyperplastic changes; no Helicobacter organisms seen.. ? B.? Cecum, polypectomy:? Tubular adenoma; no high grade dysplasia or carcinoma seen. ? C.? Cecum, polypectomy #2:? Fragments of sessile serrated polyp. ? D.? Colon, ascending, polypectomies: ?- Tubular adenomas (two); no high grade dysplasia or carcinoma seen. ? - Sessile serrated polyp. ? E.? Colon, transverse, polypectomy:? Tubular adenoma; no high grade dysplasia or carcinoma seen. 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 Streptococcal bacteremia Fracture of left humerus History of prostate cancer Acute lower gastrointestinal bleeding COVID-19 vaccine series completed Hypertension Dyslipidemia Diabetic nephropathy associated with type 2 diabetes mellitus Diabetic 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 associated with type 2 diabetes mellitus 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 Diabetes type 2, uncontrolled Varices of esophagus determined by endoscopy Esophageal varices without bleeding KOEHLER (dyspnea on exertion) Chronic fatigue Iron deficiency anemia CAD (coronary artery disease) ANUJA on CPAP Prostate cancer Spinal stenosis On beta kayy at home IBS (irritable colon syndrome) Aortic stenosis HTN (hypertension) Polyneuropathy GERD (gastroesophageal reflux disease) Surgical History S/P infectious endocarditis H/O cataract extraction Hx of endoscopy History of colonoscopy Hx of esophagogastroduodenoscopy Hx of colonoscopy History of surgery History of transurethral resection of prostate History of surgery History of heart artery stent Family History Father CVD (cardiovascular disease) Past heart attack Mother CVD (cardiovascular disease) Brain cancer Heart problem Daughter Breast cancer Sister Breast cancer Son Alive and well Family/Other Myocardial infarction Liver cancer Social History Household Members: Spouse Household Members Other:: Myesha Housing: House Are you a primary respiratory care assistant to a significant other at home: No Do you presently have visiting nurse or other home services: Yes ([facility]) Alcohol intake: never Patient Tobacco Use Status: Never used Tobacco e-Cigarette/Vaping Use: Never Used Second Hand Smoke Exposure: No Use of substances other than those prescribed or required for medical reasons: No Have you been hit, kicked, punched, or otherwise hurt by someone within the past year? If so, by whom?: No Do you feel safe in your current relationship?: Yes Advance Directives Date on File: 08/31/23 Do you have thoughts of harming others: None Do you have a plan to hurt others: No Plan Do you have the means to hurt others: No Recently lost weight without trying: No service: No Current occupational status: retired Cognitive needs: No Hearing needs: No Vision needs: Yes Review of Systems Const Denies fever(s), Denies headache(s) and Reports weight loss Eyes Denies eye discharge and Denies irritation ENT Reports Normal hearing present, Denies dysphagia, Denies dizziness and Denies headache(s) Card Denies chest pain, Denies leg edema and Denies dyspnea on exertion Resp Denies cough, Denies dyspnea on exertion and Denies wheezing GI Denies abdominal pain, Denies change in bowel habits, Denies dysphagia and Denies heartburn Denies dysuria and Reports urinary frequency Musc Denies back pain and Reports arthralgias Skin/Breast Denies pruritus, Denies rash and Denies jaundice Neuro Reports Normal hearing present, Denies Abnormal speech present, Denies dizziness, Denies headache(s) and Denies seizure-like activity Psych Denies anxiety, Denies depression and Denies panic attacks Endo Denies cold intolerance, Denies flushing and Denies heat intolerance Anmol/Lymph Denies easy bleeding and Denies easy bruising Aller/Immun Denies wheezing Physical Exam Vital Signs: Last Vital Signs Pulse 66 09/08/24 14:22 BP 87/44 L 09/08/24 14:22 BMI result Body Mass Index 26.9 Const General: no acute distress and ill appearing (Chronically ill-appearing) Nutritional Appearance: overweight Orientation/consciousness: patient oriented x3 Limitations: physical limitations and ambulation with walker HEENT Head: Yes normal to inspection Ears: hearing grossly normal bilaterally Eyes Sclerae: sclerae normal Pupils: Equal, round and reactive pupils present Neck Neck: Yes normal visual inspection Chest Chest palpation & inspection: normal inspection of the chest Resp Effort & Inspection: normal respiratory effort Auscultation: clear to auscultation bilaterally Cardio Palpation: normal PMI Rate: regular rate Rhythm: regular rhythm Heart sounds: S1 normal heart sound present, S2 normal heart sound present and no murmurs GI Inspection: Yes obesity Palpation (GI): Soft to palpation, nontender and No hepatosplenomegaly present Auscultation: normal bowel sounds Rectal Exam - Male: Yes deferred Skin General skin exam: no rashes or lesions noted Neuro General: patient oriented x3, gait normal and moves all extremities Cranial nerves: Yes Equal, round and reactive pupils present and Yes Normal hearing present Speech: No Abnormal speech present Extrem General: Yes pedal edema Psych Appearance: grossly normal Mental Status: mental status grossly normal Assessment & Plan Assessment & Plan (1) GERD (gastroesophageal reflux disease): Code(s): K21.9 - Gastro-esophageal reflux disease without esophagitis Category: Medical (2) Adenomatous polyps: Comment: Repeat colonoscopy in 2 yrs (due 09/04) since 6 polyps were removed during colonoscopy in 09/02 Code(s): D36.9 - Benign neoplasm, unspecified site Category: Medical (3) Radiation proctitis: Code(s): K62.7 - Radiation proctitis Category: Medical (4) Vitamin B12 deficiency: Code(s): E53.8 - Deficiency of other specified B group vitamins Category: Medical (5) Acute on chronic anemia: Code(s): D64.9 - Anemia, unspecified Category: Medical (6) Ascites: Code(s): R18.8 - Other ascites Category: Medical Qualifiers: Ascites type: other type Qualified Code(s): R18.8 - Other ascites (7) Hepatic encephalopathy: Code(s): K76.82 - Hepatic encephalopathy Category: Medical (8) Cirrhosis of liver with ascites: Code(s): K74.60 - Unspecified cirrhosis of liver; R18.8 - Other ascites Category: Medical Plan 79 YM with heart disease, cirrhosis, type 2 diabetes, hypertension, hyperlipidemia, spinal stenosis, ANUJA and a history of prostate cancer status post XRT seen for FU Pt was hospitalized with acute on chronic iron deficiency anemia due to slow GI blood loss. He had rectal bleeding secondary to radiation proctitis and cystitis. He is on ferrous sulfate twice a day. Negative for celiac antibodies. He had an allergic reaction to iron dextran.? He has been on IV Ferrlecit intermittently.? He also received blood transfusion. Patient has a known history of cirrhosis likely related to past EtOH use complicated by splenomegaly and thrombocytopenia and esophageal varices. Developed upper GI bleeding related to esophageal varices and band ligation of esophageal varices was performed.? Fibrosis score of 0.79 and fibrosis stage of F4. MELD score is 9. Patient is not a liver transplant candidate due to advanced age. 09/02 Upper endoscopy showed Grade 2-3 four column varices from 25 to 40 cms? - band ligation x 3 was performed with flattening of the varices. Moderate portal gastropathy was noted. Six polyps were removed during same-day colonoscopy. 04/2021 Repeat EGD with band ligation was performed. Patient has vitamin B12 deficiency due to pernicious anemia, is positive for intrinsic factor antibodies and is taking Oral Vitamin B12. Pt will be scheduled for repeat EGD with band ligation for FU of esophageal varices (Pt is scheduled for a cardiac cath on 01/08/[address] [facility]). Pt states he is taking aspirin and Plavix was discontinued. Had abdominal pain, nausea, vomting and diarrhea - seen at [facility] and was discharged after 12-13 hrs Symptoms subsided. Recurrent symptoms the following week. Continues to have intermittent episodes. Started taking senna. Stomach starts to make loud noises followed by diarrhea. Complains of lower abdominal pain worse with BM. He denies worsening of pain with eating Pt advised to schedule an EGD and Colonoscopy in Oct, 202307/[address] Nielsen Assessment and plan: 1. A 79-year-old male with iron deficiency anemia. He had rectal bleeding secondary to radiation proctitis and cystitis. He is on ferrous sulfate twice a day. Negative for celiac antibodies. He had an allergic reaction to iron dextran. Developed upper GI bleeding related to esophageal varices. He has undergone banding. He has been on IV Ferrlecit intermittently. He is transfusion dependent. 2. Pancytopenia, leukopenia and thrombocytopenia, which has been chronic and stable. He has evidence of hepatosplenomegaly, portal hypertension, which is probably contributing to his cytopenias. MRI abdomen in December 2019 showed chronic cirrhosis, portal venous hypertension and splenomegaly. No evidence of HCC or other liver lesions. He has refused bone marrow biopsy on multiple occasions. 3. Vitamin B12 deficiency, pernicious anemia. He is positive for intrinsic factor antibodies. He is on oral B12 supplementation and adequate blood levels. 3. Renal insufficiency. He is stage 3 kidney disease which could be contributing to his anemia. He has been receiving Procrit intermittently. 4. Recent treatment 2021, for endocarditis as well as hematoma secondary to left humerus fracture which caused acute worsening of his anemia. He has received multiple units of blood transfusion. He is receiving blood transfusion almost on a weekly basis. He has received 53 units of blood so far, his last ferritin was only 22. 09/08/24 Seen at [facility] on 09/01/24 and transfused 2 U of PRBC for anemia. Getting 2 U of PRBC every 2 to 3 weeks Had 1 U on 09/06/24 Pt admits to having dark stools and denies BRB per rectum Pt advised to schedule an EGD and Colon for evaluation of recurrent anemia FU in 6 weeks Orders: Orders US abdomen limited 09/08/24 K74.60 - Unspecified cirrhosis of liver, R18.8 - Other ascites Coding Level of Care Code Est Pt Level 4 (44310) Diagnoses GERD (gastroesophageal reflux disease) K21.9 Adenomatous polyps D36.9 Radiation proctitis K62.7 Vitamin B12 deficiency E53.8 Acute on chronic anemia D64.9 Other ascites R18.8 Ascites type: other type Hepatic encephalopathy K76.82 Cirrhosis of liver with ascites K74.60; R18.8 Time Spent (min) 22
[2024-09-08 14:22] VITALS: BP 87/44; PULSE 66; BMI 26.9
== END 2024-09-08 17:46 | disposition home or self-care (01) ==
LOC: HO.HGI 14:11
PROVIDERS: PCP Physician Assistant; Visit Provider Internal Medicine Gastroenterology
DX: K21.9 Gastro-esophageal reflux disease without esophagitis (principal); D36.9 Benign neoplasm, unspecified site; K62.7 Radiation proctitis; E53.8 Deficiency of other specified B group vitamins; D64.9 Anemia, unspecified; R18.8 Other ascites; K76.82 Hepatic encephalopathy; K74.60 Unspecified cirrhosis of liver
CPT/HCPCS: 99499

== ENCOUNTER → 2024-09-08 14:11 | Outpatient (BNVA) | payer MEDICARE, SELFPAY | PROVIDERS: PCP Physician Assistant; Visit Provider Internal Medicine Gastroenterology ==

== ENCOUNTER 2024-09-12 08:01 | Outpatient (REF) | payer MEDICARE, SELFPAY ==
--- OUTSIDE RECORDS SUMMARY | 2024-09-12 08:05 | XMS_ITS | Clinical Summary ---
Author Organization Unknown Care Team Providers Care Bundle Person Name Role Phone RYAN TAPIA, LEI Unavailable Unavailable AUSTIN RN, NEYDA Unavailable Unavailable GUZMAN RN, GUILLERMO Unavailable Unavailable NORMA THORNE, RAPHAEL Unavailable Unavailable Payers Payer Name Policy Type Policy Number Effective Date Expira tion Date MEDICARE - [place]/[facility] [id number] [facility] [id number] Problems Condition Name Condition Details Condition Category [...] 11-12 00:00: 00 ATHSCL HEART DISEASE OF [place] CORONARY ARTERY W/O ANG PCTRS Active 11-12 [...] 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 11-12 00:00: 00 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-12 00:00: 00 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 11-12 00:00: 00 USP (CURRENT) USE OF INSULIN Active 11-12 00:00: [...] 10-21 00:00: 00 02-01 23:59 :00 No [id number] Per instruc tions AT BEDTIME Per instructio ns AT BEDTIME (route: subcutaneo us) Med Classific ation: Endocrine bethanechol chloride 25 mg tablet 10-18 00:00: 00 04-25 00:00 :00 No [id number] Per instruc tions TWICE DAILY Per instructio ns TWICE DAILY (route: oral) Med Classific ation: Genitouri nary Therapy Farxiga 10 mg tablet 2-04 00:00: 00 08-01 23:59 :00 No [id number] Per instruc tions DAILY Per instructio ns DAILY (route: oral) Med Classific ation: Endocrine ezetimibe 10 mg tablet 1-30 00:00: 00 08-01 23:59 :00 No [id number] Unavailable Per instruc tions DAILY Per instructio ns DAILY (route: oral) Med Classific ation: Cardiovas cular Therapy Agents Novolog FlexPen U-100 Insulin aspart 100 unit/mL (3 mL) subcutane s 1- 00:00: 00 03-21 23:59 :00 No [id number] Per instruc tions 3 TIMES DAILY Per instructio ns 3 TIMES DAILY (route: subcutaneo us) Med Classific ation: Endocrine Basaglar KwikPen U-100 Insulin 100 unit/mL (3 mL) [facility] 1-25 00:00: 00 11-12 23:59 :00 No [id number] Unavailable Per instruc tions SUBCUTANEO US ONCE EVERY Per instructio ns SUBCUTANEO US ONCE EVERY (route: subcutaneo us) Med Classific ation: Endocrine alprazolam 0.5 mg tablet 1-22 00:00: 00 02-01 23:59 :00 No [id number] Unavailable Per instruc tions TWICE DAILY NEEDED Per instructio ns TWICE DAILY NEEDED (route: oral) Med Classific ation: Central Nervous System Agents aspirin 81 mg tablet,shayna yed release - 00:00: 00 04-25 23:59 :00 No [id number] 1 tablet DAILY 1 tablet DAILY (route: oral) Med Classific ation: Hematolog ical Agents atorvastati n 80 mg tablet 3- 00:00: 00 04-25 23:59 :00 No [id number] 1 tablet BEDTIME 1 tablet BEDTIME (route: oral) Med Classific ation: Cardiovas cular Therapy Agents carvedilol 6.25 mg tablet 11-12 00:00: 00 03-01 23:59 :00 No [id number] 1 tablet 2 TIMES DAILY 1 tablet 2 TIMES DAILY (route: oral) Med Classific ation: Cardiovas cular Therapy Agents finasteride 5 mg tablet 11-12 00:00: 00 08-01 23:59 :00 No [id number] 1 tablet DAILY 1 tablet DAILY (route: oral) Med Classific ation: Genitouri nary Therapy Flomax 0.4 mg capsule 11-12 00:00: 00 08-01 23:59 :00 No [id number] 1 capsule DAILY 1 capsule DAILY (route: oral) Med Classific ation: Genitouri nary Therapy gabapentin 400 mg capsule 11-12 00:00: 00 02-01 23:59 :00 No [id number] 1 capsule 2 TIMES DAILY 1 capsule 2 TIMES DAILY (route: oral) Med Classific ation: Central Nervous System Agents iron 325 mg (65 mg iron) tablet 11-12 00:00: 00 08-01 23:59 :00 No [id number] 1 tablet DAILY 1 tablet DAILY (route: oral) Med Classific ation: Electroly te Balance-N utritiona l Products pantoprazol e 40 mg tablet,shayna yed release 11-12 00:00: 00 08-01 23:59 :00 No [id number] 1 tablet DAILY 1 tablet DAILY (route: oral) Med Classific ation: Gastroint estinal Therapy Agents spironolact one 50 mg tablet 11-12 00:00: 00 02-01 23:59 :00 No [id number] 1 tablet DAILY 1 tablet DAILY (route: oral) Med Classific ation: Cardiovas cular Therapy Agents Trulicity 0.75 mg/0.5 mL subcutaneou s pen injector 11-12 00:00: 00 08-01 23:59 :00 No [id number] 0.5 mL WEEKLY 0.5 mL WEEKLY (route: subcutaneo us) Med Classific ation: Endocrine Vitamin B-12 500 mcg tablet 11-12 00:00: 00 02-01 00:00 :00 No [id number] 2 tablet BEDTIME 2 tablet BEDTIME (route: oral) Med Classific ation: Electroly te Balance-N utritiona l Products alprazolam 0.5 mg tablet 02-08 00:00: 00 04-25 23:59 :00 No [id number] 1 tablet 2 TIMES DAILY 1 tablet 2 TIMES DAILY (route: oral) Med Classific ation: Central Nervous System Agents bumetanide 1 mg tablet 02-01 00:00: 00 02-17 23:59 :00 No [id number] 1 mg DAILY 1 mg DAILY (route: oral) Med Classific ation: Cardiovas cular Therapy Agents ciprofloxac in 500 mg tablet 02-01 00:00: 00 02-02 23:59 :00 No [id number] 1 tablet DAILY 1 tablet DAILY (route: oral) Med Classific ation: Anti-Infe ctive Agents cyanocobala min (vit B-12) 500 mcg tablet 02-01 00:00: 00 08-01 23:59 :00 No [id number] 2 tablet BEDTIME 2 tablet BEDTIME (route: oral) Med Classific ation: Electroly te Balance-N utritiona l Products gabapentin 400 mg capsule 02-08 00:00: 00 04-25 23:59 :00 No [id number] 1 capsule 2 TIMES DAILY 1 capsule 2 TIMES DAILY (route: oral) Med Classific ation: Central Nervous System Agents lactulose 20 gram/30 mL oral solution 02-01 00:00: 00 04-25 23:59 :00 No [id number] 45 mL 3 TIMES DAILY 45 mL 3 TIMES DAILY (route: oral) Med Classific ation: Gastroint estinal Therapy Agents Tresiba FlexTouch U-100 insulin 100 unit/mL (3 mL) subcutaneou s pen 02-01 00:00: 00 08-01 23:59 :00 No [id number] 6 unit BEDTIME 6 unit BEDTIME (route: subcutaneo us) Med Classific ation: Endocrine bumetanide 1 mg tablet 02-17 00:00: 00 02-21 23:59 :00 No [id number] 2 tablet DAILY 2 tablet DAILY (route: oral) Med Classific ation: Cardiovas cular Therapy Agents bumetanide 1 mg tablet 02-17 00:00: 00 03-01 23:59 :00 No [id number] 1 tablet 2 TIMES DAILY 1 tablet 2 TIMES DAILY (route: oral) Med Classific ation: Cardiovas cular Therapy Agents spironolact one 25 mg tablet 03-01 00:00: 00 04-25 00:00 :00 No [id number] 2 tablet DAILY 2 tablet DAILY (route: oral) Med Classific ation: Cardiovas cular Therapy Agents torsemide 20 mg tablet 03-01 00:00: 00 04-25 00:00 :00 No [id number] 2 tablet DAILY 2 tablet DAILY (route: oral) Med Classific ation: Cardiovas cular Therapy Agents midodrine 10 mg tablet 03-01 00:00: 00 08-01 23:59 :00 No [id number] 1 tablet DIRECTED 1 tablet DIRECTED (route: oral) Med Classific ation: Cardiovas cular Therapy Agents Humulin R Regular U-100 Insulin 100 unit/mL injection solution 03-21 00:00: 00 04-25 00:00 :00 No [id number] 20 unit 3 TIMES DAILY 20 unit 3 TIMES DAILY (route: injection) Med Classific ation: Endocrine Basaglar KwikPen U-100 Insulin 100 unit/mL (3 mL) [facility] 04-25 00:00: 00 08-01 23:59 :00 No [id number] 1 unit 3 TIMES DAILY 1 unit 3 TIMES DAILY (route: subcutaneo us) Med Classific ation: Endocrine bumetanide 1 mg tablet 04-25 00:00: 00 08-01 23:59 :00 No [id number] 1 tablet DAILY 1 tablet DAILY (route: oral) Med Classific ation: Cardiovas cular Therapy Agents spironolact one 25 mg tablet 04-25 00:00: 00 08-01 23:59 :00 No [id number] 1 tablet DAILY 1 tablet DAILY (route: oral) Med Classific ation: Cardiovas cular Therapy Agents atorvastati n 80 mg tablet 04-26 00:00: 00 08-01 23:59 :00 No [id number] 0.5 tablet BEDTIME 0.5 tablet BEDTIME (route: oral) Med Classific ation: Cardiovas cular Therapy Agents carvedilol 6.25 mg tablet 04-26 00:00: 00 08-01 23:59 :00 No [id number] 1 tablet 2 TIMES DAILY 1 tablet 2 TIMES DAILY (route: oral) Med Classific ation: Cardiovas cular Therapy Agents alprazolam 0.5 mg tablet 04-26 00:00: 00 08-01 23:59 :00 No [id number] 1 tablet 2 TIMES DAILY 1 tablet 2 TIMES DAILY (route: oral) Med Classific ation: Central Nervous System Agents gabapentin 300 mg capsule 04-26 00:00: 00 08-01 23:59 :00 No [id number] 1 capsule 2 TIMES DAILY 1 capsule 2 TIMES DAILY (route: oral) Med Classific ation: Central Nervous System Agents cyanocobala min (vit B-12) 500 mcg tablet 04-26 00:00: 00 08-01 23:59 :00 No [id number] 2 tablet BEDTIME 2 tablet BEDTIME (route: oral) Med Classific ation: Electroly te Balance-N utritiona l Products lactulose 10 gram/15 mL oral solution 04-26 00:00: 00 08-01 23:59 :00 No [id number] 30 mL 2 TIMES DAILY 30 mL [...] CARE WILL BE ESTABLISHED THAT MEETS PATIENT'S RETIREMENT NEEDS AND INCLUDES PATIENT GOAL FOR HOME [...] End Date/Time Encounter Type Admission Type Attending [facility] Care Facility Care Department Encounter ID Discharge Date Discharge Status Discharge Condition Discharge Reason Percent Goals Met 2023-11-13 00:00:00 2024-05-10 00:00:00 [facility] [id number] 2024-05-10 00:00:00 DISCHARGED /TRANSFERR ED TO A [facility] FOR INPATIENT CARE REMAINS INPATIENT AT TIME OF DISCHARGE REMAINS IN INPATIENT FACILITY AT END OF CERT PERIOD 75.76
--- OUTSIDE RECORDS SUMMARY | 2024-09-12 08:06 | XMS_ITS | Continuity of Care Document ---
Author Organization [facility] Address [address] [address] Phone Care Team Providers Care Mens Locker Room Attendant Name Role Phone NAMITA Jacobson RD, Shauna Unavailable Unavail able Advance Directives Directive Yes / No Effective Date File Name No Information Encounters Encounter Description Practice Location Reason(s) For Visit Diagnoses Date Provider Providers Copied on Encounter [facility], [address] [address], [place], [place], [id number], [place] tel:[phone] [facility] No Information Indira Villatoro. [address] [place], [address]. tel:[phone] Family History Family Member Type Diagnosis Age [...]
--- OUTSIDE RECORDS SUMMARY | 2024-09-12 08:07 | XMS_ITS | Clinical Summary ---
Author Organization Unknown Care Team Providers Care [employer] Spanish Teacher Name Role Phone RYAN TAPIA, LEI Unavailable Unavailable AUSTIN RN, NEYDA Unavailable Unavailable GUZMAN RN, GUILLERMO Unavailable Unavailable NORMA THORNE, RAPHAEL Unavailable Unavailable Payers Payer Name Policy Type Policy Number Effective Date Expira tion Date [place] - [place]/[facility] [id number] [facility] [id number] Problems Condition Name Condition Details Condition Category [...] 11-12 00:00: 00 ATHSCL HEART DISEASE OF [place] CORONARY ARTERY W/O ANG PCTRS Active 11-12 [...] 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 11-12 00:00: 00 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 11-12 00:00: 00 NURSING HOME (CURRENT) USE OF INSULIN Active 11-12 [...] 10-21 00:00: 00 02-01 23:59 :00 No [id number] Per instruc tions AT BEDTIME Per instructio ns AT BEDTIME (route: subcutaneo us) Med Classific ation: Endocrine bethanechol chloride 25 mg tablet 10-18 00:00: 00 04-25 00:00 :00 No [id number] Per instruc tions TWICE DAILY Per instructio ns TWICE DAILY (route: oral) Med Classific ation: Genitouri nary Therapy Farxiga 10 mg tablet 2-04 00:00: 00 08-01 23:59 :00 No [id number] Per instruc tions DAILY Per instructio ns DAILY (route: oral) Med Classific ation: Endocrine ezetimibe 10 mg tablet 1-30 00:00: 00 08-01 23:59 :00 No [id number] Unavailable Per instruc tions DAILY Per instructio ns DAILY (route: oral) Med Classific ation: Cardiovas cular Therapy Agents Novolog FlexPen U-100 Insulin aspart 100 unit/mL (3 mL) subcutane s 1- 00:00: 00 03-21 23:59 :00 No [id number] Per instruc tions 3 TIMES DAILY Per instructio ns 3 TIMES DAILY (route: subcutaneo us) Med Classific ation: Endocrine Basaglar KwikPen U-100 Insulin 100 unit/mL (3 mL) [facility] 1-25 00:00: 00 11-12 23:59 :00 No [id number] Unavailable Per instruc tions SUBCUTANEO US ONCE EVERY Per instructio ns SUBCUTANEO US ONCE EVERY (route: subcutaneo us) Med Classific ation: Endocrine alprazolam 0.5 mg tablet 1-22 00:00: 00 02-01 23:59 :00 No [id number] Unavailable Per instruc tions TWICE DAILY NEEDED Per instructio ns TWICE DAILY NEEDED (route: oral) Med Classific ation: Central Nervous System Agents aspirin 81 mg tablet,shayna yed release - 00:00: 00 04-25 23:59 :00 No [id number] 1 tablet DAILY 1 tablet DAILY (route: oral) Med Classific ation: Hematolog ical Agents atorvastati n 80 mg tablet 3- 00:00: 00 04-25 23:59 :00 No [id number] 1 tablet BEDTIME 1 tablet BEDTIME (route: oral) Med Classific ation: Cardiovas cular Therapy Agents carvedilol 6.25 mg tablet 11-12 00:00: 00 03-01 23:59 :00 No [id number] 1 tablet 2 TIMES DAILY 1 tablet 2 TIMES DAILY (route: oral) Med Classific ation: Cardiovas cular Therapy Agents finasteride 5 mg tablet 11-12 00:00: 00 08-01 23:59 :00 No [id number] 1 tablet DAILY 1 tablet DAILY (route: oral) Med Classific ation: Genitouri nary Therapy Flomax 0.4 mg capsule 11-12 00:00: 00 08-01 23:59 :00 No [id number] 1 capsule DAILY 1 capsule DAILY (route: oral) Med Classific ation: Genitouri nary Therapy gabapentin 400 mg capsule 11-12 00:00: 00 02-01 23:59 :00 No [id number] 1 capsule 2 TIMES DAILY 1 capsule 2 TIMES DAILY (route: oral) Med Classific ation: Central Nervous System Agents iron 325 mg (65 mg iron) tablet 11-12 00:00: 00 08-01 23:59 :00 No [id number] 1 tablet DAILY 1 tablet DAILY (route: oral) Med Classific ation: Electroly te Balance-N utritiona l Products pantoprazol e 40 mg tablet,shayna yed release 11-12 00:00: 00 08-01 23:59 :00 No [id number] 1 tablet DAILY 1 tablet DAILY (route: oral) Med Classific ation: Gastroint estinal Therapy Agents spironolact one 50 mg tablet 11-12 00:00: 00 02-01 23:59 :00 No [id number] 1 tablet DAILY 1 tablet DAILY (route: oral) Med Classific ation: Cardiovas cular Therapy Agents Trulicity 0.75 mg/0.5 mL subcutaneou s pen injector 11-12 00:00: 00 08-01 23:59 :00 No [id number] 0.5 mL WEEKLY 0.5 mL WEEKLY (route: subcutaneo us) Med Classific ation: Endocrine Vitamin B-12 500 mcg tablet 11-12 00:00: 00 02-01 00:00 :00 No [id number] 2 tablet BEDTIME 2 tablet BEDTIME (route: oral) Med Classific ation: Electroly te Balance-N utritiona l Products alprazolam 0.5 mg tablet 02-08 00:00: 00 04-25 23:59 :00 No [id number] 1 tablet 2 TIMES DAILY 1 tablet 2 TIMES DAILY (route: oral) Med Classific ation: Central Nervous System Agents bumetanide 1 mg tablet 02-01 00:00: 00 02-17 23:59 :00 No [id number] 1 mg DAILY 1 mg DAILY (route: oral) Med Classific ation: Cardiovas cular Therapy Agents ciprofloxac in 500 mg tablet 02-01 00:00: 00 02-02 23:59 :00 No [id number] 1 tablet DAILY 1 tablet DAILY (route: oral) Med Classific ation: Anti-Infe ctive Agents cyanocobala min (vit B-12) 500 mcg tablet 02-01 00:00: 00 08-01 23:59 :00 No [id number] 2 tablet BEDTIME 2 tablet BEDTIME (route: oral) Med Classific ation: Electroly te Balance-N utritiona l Products gabapentin 400 mg capsule 02-08 00:00: 00 04-25 23:59 :00 No [id number] 1 capsule 2 TIMES DAILY 1 capsule 2 TIMES DAILY (route: oral) Med Classific ation: Central Nervous System Agents lactulose 20 gram/30 mL oral solution 02-01 00:00: 00 04-25 23:59 :00 No [id number] 45 mL 3 TIMES DAILY 45 mL 3 TIMES DAILY (route: oral) Med Classific ation: Gastroint estinal Therapy Agents Tresiba FlexTouch U-100 insulin 100 unit/mL (3 mL) subcutaneou s pen 02-01 00:00: 00 08-01 23:59 :00 No [id number] 6 unit BEDTIME 6 unit BEDTIME (route: subcutaneo us) Med Classific ation: Endocrine bumetanide 1 mg tablet 02-17 00:00: 00 02-21 23:59 :00 No [id number] 2 tablet DAILY 2 tablet DAILY (route: oral) Med Classific ation: Cardiovas cular Therapy Agents bumetanide 1 mg tablet 02-17 00:00: 00 03-01 23:59 :00 No [id number] 1 tablet 2 TIMES DAILY 1 tablet 2 TIMES DAILY (route: oral) Med Classific ation: Cardiovas cular Therapy Agents spironolact one 25 mg tablet 03-01 00:00: 00 04-25 00:00 :00 No [id number] 2 tablet DAILY 2 tablet DAILY (route: oral) Med Classific ation: Cardiovas cular Therapy Agents torsemide 20 mg tablet 03-01 00:00: 00 04-25 00:00 :00 No [id number] 2 tablet DAILY 2 tablet DAILY (route: oral) Med Classific ation: Cardiovas cular Therapy Agents midodrine 10 mg tablet 03-01 00:00: 00 08-01 23:59 :00 No [id number] 1 tablet DIRECTED 1 tablet DIRECTED (route: oral) Med Classific ation: Cardiovas cular Therapy Agents Humulin R Regular U-100 Insulin 100 unit/mL injection solution 03-21 00:00: 00 04-25 00:00 :00 No [id number] 20 unit 3 TIMES DAILY 20 unit 3 TIMES DAILY (route: injection) Med Classific ation: Endocrine Basaglar KwikPen U-100 Insulin 100 unit/mL (3 mL) [facility] 04-25 00:00: 00 08-01 23:59 :00 No [id number] 1 unit 3 TIMES DAILY 1 unit 3 TIMES DAILY (route: subcutaneo us) Med Classific ation: Endocrine bumetanide 1 mg tablet 04-25 00:00: 00 08-01 23:59 :00 No [id number] 1 tablet DAILY 1 tablet DAILY (route: oral) Med Classific ation: Cardiovas cular Therapy Agents spironolact one 25 mg tablet 04-25 00:00: 00 08-01 23:59 :00 No [id number] 1 tablet DAILY 1 tablet DAILY (route: oral) Med Classific ation: Cardiovas cular Therapy Agents atorvastati n 80 mg tablet 04-26 00:00: 00 08-01 23:59 :00 No [id number] 0.5 tablet BEDTIME 0.5 tablet BEDTIME (route: oral) Med Classific ation: Cardiovas cular Therapy Agents carvedilol 6.25 mg tablet 04-26 00:00: 00 08-01 23:59 :00 No [id number] 1 tablet 2 TIMES DAILY 1 tablet 2 TIMES DAILY (route: oral) Med Classific ation: Cardiovas cular Therapy Agents alprazolam 0.5 mg tablet 04-26 00:00: 00 08-01 23:59 :00 No [id number] 1 tablet 2 TIMES DAILY 1 tablet 2 TIMES DAILY (route: oral) Med Classific ation: Central Nervous System Agents gabapentin 300 mg capsule 04-26 00:00: 00 08-01 23:59 :00 No [id number] 1 capsule 2 TIMES DAILY 1 capsule 2 TIMES DAILY (route: oral) Med Classific ation: Central Nervous System Agents cyanocobala min (vit B-12) 500 mcg tablet 04-26 00:00: 00 08-01 23:59 :00 No [id number] 2 tablet BEDTIME 2 tablet BEDTIME (route: oral) Med Classific ation: Electroly te Balance-N utritiona l Products lactulose 10 gram/15 mL oral solution 04-26 00:00: 00 08-01 23:59 :00 No [id number] 30 mL 2 TIMES DAILY 30 mL [...] End Date/Time Encounter Type Admission Type Attending [facility] Care Facility Care Department Encounter ID Discharge Date Discharge Status Discharge Condition Discharge Reason Percent Goals Met 2023-11-13 00:00:00 2024-05-10 00:00:00 [facility] [id number] 2024-05-10 00:00:00 DISCHARGED /TRANSFERR ED TO A [facility] FOR INPATIENT CARE REMAINS INPATIENT AT TIME OF DISCHARGE REMAINS IN INPATIENT FACILITY AT END OF CERT PERIOD 75.76
--- OUTSIDE RECORDS SUMMARY | 2024-09-12 08:07 | XMS_ITS | Clinical Summary ---
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 Name Role Phone RYAN TAPIA, LEI Unavailable Unavailable JOSE THORNE, GRETA Unavailable Unavailable Payers Payer Name Policy Type Policy Number Effective Date Expira tion Date MEDICARE.NGS.PDGM [id number] Problems Condition Name Condition Details Condition Category [...] 02-08 00:00: 00 ATHSCL HEART DISEASE OF [place] CORONARY ARTERY W/O ANG PCTRS Active 09-14 [...] MANAGEMENT OF VAD Active 02-08 00:00: 00 SENIOR CARE (CURRENT) USE OF INSULIN Active 09-14 00:00: 00 LNG TRM (CRNT) USE INJECTABLE NON-INSULIN ANTIDIABETIC DRUGS Active 09-14 00:00: 00 SENIOR CARE (CURRENT) USE OF ORAL 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 DRUGS Active 09-14 00:00: 00 SENIOR CARE (CURRENT) USE OF ANTITHROMBOT ICS/ANTIPLAT ELETS Active [...] 01-14 00:00: 00 02-08 23:59 :00 No [id number] ANXIETY 1 tablet 2 TIMES DAILY 1 tablet 2 TIMES DAILY (route: oral) Med Classific ation: Central Nervous System Agents atorvastati n 80 mg tablet 01-14 00:00: 00 Yes [id number] CHOLESTEROL 1 tablet DAILY 1 tablet DAILY (route: oral) Med Classific ation: Cardiovas cular Therapy Agents bethanechol chloride 25 mg tablet 01-14 00:00: 00 Yes [id number] BLADDER 1 tablet 2 TIMES DAILY 1 tablet 2 TIMES DAILY (route: oral) Med Classific ation: Genitouri nary Therapy Farxiga 10 mg tablet 01-14 00:00: 00 Yes [id number] DM2 1 tablet DAILY 1 tablet DAILY (route: oral) Med Classific ation: Endocrine finasteride 5 mg tablet 01-14 00:00: 00 Yes [id number] BPH 1 tablet DAILY 1 tablet DAILY (route: oral) Med Classific ation: Genitouri nary Therapy gabapentin 400 mg capsule 01-14 00:00: 00 Yes [id number] NERVE PAIN 1 capsule 3 TIMES DAILY 1 capsule 3 TIMES DAILY (route: oral) Med Classific ation: Central Nervous System Agents insulin aspar prot-insuli n aspart 100 unit/mL (70-30) [facility] 01-14 00:00: 00 01-16 16:23 :30.0 57 No [id number] DM2 2-25 In unit 3 TIMES DAILY 2-25 In unit 3 TIMES DAILY (route: subcutaneo us) Med Classific ation: Endocrine iron 325 mg (65 mg iron) tablet 01-14 00:00: 00 Yes [id number] SUPPLEMENT 1 tablet DAILY 1 tablet DAILY (route: oral) Med Classific ation: Electroly te Balance-N utritiona l Products mecobalamin (vitamin B12) 1,000 mcg chewable tablet 01-14 00:00: 00 Yes [id number] SUPPLEMENT 1 tablet DAILY 1 tablet DAILY (route: oral) Med Classific ation: Electroly te Balance-N utritiona l Products metoprolol succinate ER 100 mg tablet,exte nded release 24 hr 01-14 00:00: 00 02-08 23:59 :00 No [id number] HTN 1 tablet DAILY 1 tablet DAILY (route: oral) Med Classific ation: Cardiovas cular Therapy Agents omeprazole 20 mg capsule,del ayed release 01-14 00:00: 00 02-08 23:59 :00 No [id number] GERD 1 capsule 2 TIMES DAILY 1 capsule 2 TIMES DAILY (route: oral) Med Classific ation: Gastroint estinal Therapy Agents Plavix 75 mg tablet 01-14 00:00: 00 Yes [id number] CLOTING 1 tablet DAILY 1 tablet DAILY (route: oral) Med Classific ation: Hematolog ical Agents tamsulosin 0.4 mg capsule 01-14 00:00: 00 Yes [id number] BPH 1 capsule DAILY 1 capsule DAILY (route: oral) Med Classific ation: Genitouri nary Therapy torsemide 20 mg tablet 01-14 00:00: 00 02-08 23:59 :00 No [id number] EDEMA 1 tablet DAILY 1 tablet DAILY (route: oral) Med Classific ation: Cardiovas cular Therapy Agents tramadol 50 mg tablet 01-14 00:00: 00 Yes [id number] PAIN 0.5 tablet EVERY 6 HOURS 0.5 tablet EVERY 6 HOURS (route: oral) Med Classific ation: Analgesic , Anti-infl ammatory or Antipyret ic Tresiba FlexTouch U-100 insulin 100 unit/mL (3 mL) subcutaneou s pen 01-14 00:00: 00 02-08 23:59 :00 No [id number] DM2 64 In unit DAILY 64 In unit DAILY (route: subcutaneo us) Med Classific ation: Endocrine Trulicity 0.75 mg/0.5 mL subcutaneou s pen injector 01-14 00:00: 00 Yes [id number] DM2 0.5 mL WEEKLY 0.5 mL WEEKLY (route: subcutaneo us) Med Classific ation: Endocrine Zetia 10 mg tablet 01-14 00:00: 00 Yes [id number] CHOLESTEROL 1 tablet DAILY 1 tablet DAILY (route: oral) Med Classific ation: Cardiovas cular Therapy Agents ceftriaxone 1 gram intravenous solution 02-08 00:00: 00 03-08 23:59 :00 No [id number] infection 2 gram DAILY 2 gram DAILY (route: intravenou s) Med Classific ation: Anti-Infe ctive Agents sodium chloride 0.9 % intravenous solution 02-08 00:00: 00 Yes [id number] flush 10 mL DIRECTED 10 mL DIRECTED (route: intravenou s) Med Classific ation: Electroly te Balance-N utritiona l Products heparin, porcine (PF) 10 unit/mL intravenous syringe 02-08 00:00: 00 Yes [id number] flush 5 mL DIRECTED 5 mL DIRECTED (route: intravenou s) Med Classific ation: Hematolog ical Agents carvedilol 6.25 mg tablet 02-08 00:00: 00 Yes [id number] heart 1 tablet 2 TIMES DAILY 1 tablet 2 TIMES DAILY (route: oral) Med Classific ation: Cardiovas cular Therapy Agents Lasix 40 mg tablet 02-08 00:00: 00 Yes [id number] fluid 1 tablet 2 TIMES DAILY 1 tablet 2 TIMES DAILY (route: oral) Med Classific ation: Cardiovas cular Therapy Agents Tresiba U-100 Insulin 100 unit/mL subcutaneou s solution 02-08 00:00: 00 Yes [id number] blood sugar 10 unit BEDTIME 10 unit BEDTIME (route: subcutaneo us) Med Classific ation: Endocrine pantoprazol e 40 mg tablet,shayna yed release 02-08 00:00: 00 Yes [id number] gerd 1 tablet DAILY 1 tablet DAILY (route: oral) Med Classific ation: Gastroint estinal Therapy Agents Aldactone 100 mg tablet 02-08 00:00: 00 Yes [id number] BP 1 tablet DAILY 1 tablet DAILY (route: oral) Med Classific ation: Cardiovas cular Therapy Agents aspirin 81 mg tablet,shayna yed release 02-08 00:00: 00 Yes [id number] ANTICOAGULA NT 1 tablet DAILY 1 tablet DAILY (route: oral) Med Classific ation: Hematolog ical Agents ceftriaxone 2 gram intravenous solution 02-08 00:00: 00 03-08 23:59 :00 No [id number] CERVICAL OSTEOMYELIT IS 2 g DAILY 2 g DAILY (route: intravenou s) Med Classific ation: Anti-Infe ctive Agents Coreg 6.25 mg tablet 02-08 00:00: 00 Yes [id number] BP 1 tablet 2 TIMES DAILY 1 tablet 2 TIMES DAILY (route: oral) Med Classific ation: Cardiovas cular Therapy Agents lactulose 10 gram/15 mL (15 mL) oral solution 02-08 00:00: 00 Yes [id number] LAXATIVE 15 mL NEEDED 15 mL NEEDED (route: oral) Med Classific ation: Gastroint estinal Therapy Agents Lasix 40 mg tablet 02-08 00:00: 00 Yes [id number] DIURETIC 1 tablet DAILY 1 tablet DAILY (route: oral) Med Classific ation: Cardiovas cular Therapy Agents midodrine 10 mg tablet 02-08 00:00: 00 Yes [id number] BP 1 tablet 3 TIMES DAILY 1 tablet 3 TIMES DAILY (route: oral) Med Classific ation: Cardiovas cular Therapy Agents Novolog FlexPen U-100 Insulin aspart 100 unit/mL (3 mL) subcutaneou s 02-08 00:00: 00 Yes [id number] DM2 Per instruc tions BEFORE MEALS Per instructio ns BEFORE MEALS (route: subcutaneo us) Med Classific ation: Endocrine pantoprazol e 40 mg tablet,shayna yed release 02-08 00:00: 00 Yes [id number] REFLUX 1 tablet DAILY 1 tablet DAILY (route: oral) Med Classific ation: Gastroint estinal Therapy Agents Tresiba FlexTouch U-100 insulin 100 unit/mL (3 mL) subcutaneou s pen 02-08 00:00: 00 Yes [id number] DM2 10 unit BEDTIME 10 unit BEDTIME [...] PATIENT REPORTED WEIGHT AND NOTIFY CM / HAUL CANE BRAKEMAN FOR MD NOTIFICATION FOR SIGNS AND SYMPTOMS [...] PATIENT REPORTED WEIGHT AND NOTIFY CM / HAUL CANE BRAKEMAN FOR MD NOTIFICATION FOR SIGNS AND SYMPTOMS [...] End Date/Time Encounter Type Admission Type Attending [facility] Care Department Encounter ID Discharge Date Discharge Status Discharge Condition Discharge Reason Percent Goals Met 2023-01-14 00:00:00 2023-03-12 00:00:00 Outpatient GRETA DELGADO [facility] [id number] 2023-03-12 00:00:00 DISCHARGE TO HOME OR SELF CARE INDEPENDEN T IN [facility] OR [facility]- GOALS MET 100.00
[2024-09-12 11:18] LABS: MANUAL DIFF FLAG NO
[2024-09-12 11:20] LABS: Basophils Absolute Auto 0.1 X10*3/uL (0.0-0.2); Eosinophils Absolute Auto 0.1 X10*3/uL (0.0-0.4); Eosinophils Percent Auto 2.1 % (0-4); Hematocrit 25.5 % (42.0-52.0); Imm Gran Abs Auto 0.03 X10*3/uL (0.00-0.03); Imm Gran Pct Auto 0.6 % (0.0-0.4); Lymphocytes Absolute Auto 0.4 X10*3/uL (1.2-4.9); Lymphocytes Percent Auto 7.4 % (20-40); Mean Corpuscular HGB Conc 31.4 g/dl (31.0-36.0); Mean Corpuscular Hemoglobin 28.2 pg (27.0-33.0); Mean Corpuscular Volume 89.8 fL (80.0-98.0); Mean Platelet Volume 10.6 fL (9.4-12.4); Monocytes Absolute Auto 0.6 X10*3/uL (0.1-1.2); Monocytes Percent Auto 12.3 % (2-11); Neutrophils Absolute Auto 3.7 x10*3/uL (2.0-8.3); Neutrophils Percent Auto 76.6 % (45-73); Platelet Count 121 X10*3/uL (160-400); Red Blood Count 2.84 X10*6/uL (4.60-5.80); Red Cell Distribution Width 15.5 % (11.0-16.0); White Blood Count 4.9 X10*3/uL (4.8-10.8)
== END 2024-09-12 08:02 | disposition home or self-care (01) ==
LOC: HO.LHD 08:01
PROVIDERS: Visit Provider Internal Medicine
DX: D64.9 Anemia, unspecified (principal)
CPT/HCPCS: 36415; 85025

== ENCOUNTER 2024-09-12 09:32 | Outpatient (AMB) | payer MEDICARE, SELFPAY ==
--- NOTE | 2024-09-12 09:32 | A.OFFPC_ITS ---
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: No Information Interpreted: non-clinical & clinical [place] Guide: Not Required per policy Accompanied by: Spouse Allergies KARL Inhibitors Allergy (Severe, Verified 09/12/24 09:33) Angioedema dextran 40 [DEXTRAN 40] Allergy (Intermediate, Verified 09/12/24 09:33) tachycardia latex [LATEX] Allergy (Mild, Verified 09/12/24 09:33) BLISTERS lisinopril [From Zestril] Allergy (Mild, Verified 09/12/24 09:33) Unknown Iodinated Contrast Media [CONTRAST,IV] Allergy (Unknown, Verified 09/12/24 09:33) UNKNOWN Tobacco use date assessed: 10/21/23 Fall risk assessment: No Falls in past year Last assessed Fall Risk: 09/12/24 Dental Screening Dental Screen Date: 10/21/23 HPI f/u hepatic ( telehealth) HPI Details patient is a 79-year-old male being evaluated today via telephone only. Patient has a past medical history significant for aortic stenosis, type 2 diabetes, hypertension, h/o Prostate cancer, morbid obesity, anxiety, h/o bleed ulcer with anemia. HTN: Blood pressures recently report 120 systolic. Continues on bumex 1mg BID. .. Hepatic encephalopathy: Patient continues to be consistent with lactulose. Does report having a few loose bowel movements per day. He does have the availability to check his ammonia level on a monthly basis .. Anemia: Continues to follow Hematology here in [place]. Continues to get infusions for his blood levels. He is infusion dependent. 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 Streptococcal bacteremia Fracture of left humerus History of prostate cancer Acute lower gastrointestinal bleeding COVID-19 vaccine series completed Hypertension Dyslipidemia Diabetic nephropathy associated with type 2 diabetes mellitus Diabetic 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 associated with type 2 diabetes mellitus 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 Diabetes type 2, uncontrolled Varices of esophagus determined by endoscopy Esophageal varices without bleeding KOEHLER (dyspnea on exertion) Chronic fatigue Iron deficiency anemia CAD (coronary artery disease) ANUJA on CPAP Prostate cancer Spinal stenosis On beta kayy at home IBS (irritable colon syndrome) Aortic stenosis HTN (hypertension) Polyneuropathy GERD (gastroesophageal reflux disease) Surgical History S/P infectious endocarditis H/O cataract extraction Hx of endoscopy History of colonoscopy Hx of esophagogastroduodenoscopy Hx of colonoscopy History of surgery History of transurethral resection of prostate History of surgery History of heart artery stent Family History Father CVD (cardiovascular disease) Past heart attack Mother CVD (cardiovascular disease) Brain cancer Heart problem Daughter Breast cancer Sister Breast cancer Son Alive and well Family/Other Myocardial infarction Liver cancer Social History Household Members: Spouse Household Members Other:: Myesha Housing: House Are you a primary acute care nurse to a significant other at home: No Do you presently have visiting nurse or other home services: Yes Alcohol intake: never Patient Tobacco Use Status: Never used Tobacco e-Cigarette/Vaping Use: Never Used Second Hand Smoke Exposure: No Advance Directives Date on File: 08/31/23 service: No Current occupational status: retired Cognitive needs: No Hearing needs: No Vision needs: Yes Questionnaire Thrive Questionnaire Date Thrive assessed: 08/17/24 GISELA-7 AMB Questionnaire GISELA-7 Date GISELA - 7 assessed: 02/10/24 Source: Developed by Drs. Andrew Miranda, Cristiane Zabala, Jose Jenkins and colleagues, with an educational tanya from [employer]. Review of Systems Const Denies headache(s) Eyes Denies loss of vision ENT Denies vertigo, Denies dizziness, Denies headache(s) and Denies sore throat Card Denies chest pain, Denies leg edema and Denies lightheadedness Resp Denies cough, Denies hemoptysis and Denies wheezing GI Denies abdominal pain, Denies melena, Denies constipation, Denies diarrhea and Denies vomiting Denies dysuria, Denies urinary frequency and Denies urinary urgency Musc Denies arthralgias, Denies joint swelling, Denies numbness and Denies tingling Neuro Denies behavioral changes, Denies vertigo, Denies dizziness, Denies headache(s), Denies loss of vision, Denies memory loss, Denies numbness and Denies tingling Psych Denies anxiety, Denies behavioral changes, Denies depression, Denies memory loss and Denies panic attacks Anmol/Lymph Denies easy bleeding and Denies easy bruising Aller/Immun Denies wheezing Physical exam (Primary Care) Tobacco/Smoking Status: Tobacco use Status Tobacco use date assessed 10/21/23 09/12/24 09:33 Patient Tobacco Use Status Never used Tobacco 09/12/24 09:33 e-Cigarette/Vaping Use Never Used 09/12/24 09:33 Thrive Assessment: Date of Thrive Assessment Date Thrive assessed 08/17/24 09/12/24 09:33 Telehealth Telehealth Telehealth Platform: Telephone Location of provider rendering services: practice address Location of patient: address on file Patient Identification confirmed using: Name, : Yes Telehealth method: voice only Patient verbally consented to treatment: Yes Patient verbally consented to billing insurance company: Yes Patient informed of any privacy concerns related to visit: Yes Minutes spent on Phone/Video with Pt.: 11 Coding Level of Care Code Tele Est Pt Level 3 (45127) Diagnoses Cirrhosis of liver with ascites, unspecified hepatic cirrhosis type K74.60; R18.8 Hepatic cirrhosis type: unspecified hepatic cirrhosis Pancytopenia D61.818 Essential hypertension I10 Hypertension type: essential hypertension Assessment & Plan Assessment & Plan (1) Cirrhosis of liver with ascites: Code(s): K74.60 - Unspecified cirrhosis of liver; R18.8 - Other ascites Category: Medical Qualifiers: Hepatic cirrhosis type: unspecified hepatic cirrhosis Qualified Code(s): K74.60 - Unspecified cirrhosis of liver; R18.8 - Other ascites Plan: As per HPI patient continues with lactulose and Bumex 1 mg b.i.d.. He reports his weight today is 179 lb which has improved since hospitalization. Again does have the availability at the lab to check his ammonia level and a monthly basis. He was noted to have much less abdominal distention and lower leg edema at most recent office visit (2) Pancytopenia: Code(s): D61.818 - Other pancytopenia Category: Medical Plan: Patient followed by Hematology in his getting regular blood infusions. Will be following up with Gastroenterology for an endoscopy in early October (3) Hypertension: Code(s): I10 - Essential (primary) hypertension Category: Medical Qualifiers: Hypertension type: essential hypertension Qualified Code(s): I10 - Essential (primary) hypertension Plan: Patient reports his blood pressure is pretty stable at home as of now. We did reduce his dose of Bumex recently due to hypotension. He does have midodrine available to him for hypotensive blood pressure readings.
--- OUTSIDE RECORDS SUMMARY | 2024-09-12 09:35 | XMS_ITS | Continuity of Care Document ---
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 [address] [place], [address]. tel:[phone] Family History Family Member Type Diagnosis Age [...]
--- OUTSIDE RECORDS SUMMARY | 2024-09-12 09:35 | XMS_ITS | Clinical Summary ---
Author Organization Unknown Care Team Providers Care Feather Shaper Name Role Phone RYAN TAPIA, LEI Unavailable Unavailable AUSTIN RN, NEYDA Unavailable Unavailable GUZMAN RN, GUILLERMO Unavailable Unavailable NORMA THORNE, RAPHAEL Unavailable Unavailable Payers Payer Name Policy Type Policy Number Effective Date Expira tion Date MEDICARE - [place]/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 DRUGS Active [...] 10-21 00:00: 00 02-01 23:59 :00 No [id number] Per instruc tions AT BEDTIME Per instructio ns AT BEDTIME (route: subcutaneo us) Med Classific ation: Endocrine bethanechol chloride 25 mg tablet 10-18 00:00: 00 04-25 00:00 :00 No [id number] Per instruc tions TWICE DAILY Per instructio ns TWICE DAILY (route: oral) Med Classific ation: Genitouri nary Therapy Farxiga 10 mg tablet 2-04 00:00: 00 08-01 23:59 :00 No [id number] Per instruc tions DAILY Per instructio ns DAILY (route: oral) Med Classific ation: Endocrine ezetimibe 10 mg tablet 1-30 00:00: 00 08-01 23:59 :00 No [id number] Unavailable Per instruc tions DAILY Per instructio ns DAILY (route: oral) Med Classific ation: Cardiovas cular Therapy Agents Novolog FlexPen U-100 Insulin aspart 100 unit/mL (3 mL) subcutane s 1- 00:00: 00 03-21 23:59 :00 No [id number] Per instruc tions 3 TIMES DAILY Per instructio ns 3 TIMES DAILY (route: subcutaneo us) Med Classific ation: Endocrine Basaglar KwikPen U-100 Insulin 100 unit/mL (3 mL) [facility] 1-25 00:00: 00 11-12 23:59 :00 No [id number] Unavailable Per instruc tions SUBCUTANEO US ONCE EVERY Per instructio ns SUBCUTANEO US ONCE EVERY (route: subcutaneo us) Med Classific ation: Endocrine alprazolam 0.5 mg tablet 1-22 00:00: 00 02-01 23:59 :00 No [id number] Unavailable Per instruc tions TWICE DAILY NEEDED Per instructio ns TWICE DAILY NEEDED (route: oral) Med Classific ation: Central Nervous System Agents aspirin 81 mg tablet,shayna yed release - 00:00: 00 04-25 23:59 :00 No [id number] 1 tablet DAILY 1 tablet DAILY (route: oral) Med Classific ation: Hematolog ical Agents atorvastati n 80 mg tablet 3- 00:00: 00 04-25 23:59 :00 No [id number] 1 tablet BEDTIME 1 tablet BEDTIME (route: oral) Med Classific ation: Cardiovas cular Therapy Agents carvedilol 6.25 mg tablet 11-12 00:00: 00 03-01 23:59 :00 No [id number] 1 tablet 2 TIMES DAILY 1 tablet 2 TIMES DAILY (route: oral) Med Classific ation: Cardiovas cular Therapy Agents finasteride 5 mg tablet 11-12 00:00: 00 08-01 23:59 :00 No [id number] 1 tablet DAILY 1 tablet DAILY (route: oral) Med Classific ation: Genitouri nary Therapy Flomax 0.4 mg capsule 11-12 00:00: 00 08-01 23:59 :00 No [id number] 1 capsule DAILY 1 capsule DAILY (route: oral) Med Classific ation: Genitouri nary Therapy gabapentin 400 mg capsule 11-12 00:00: 00 02-01 23:59 :00 No [id number] 1 capsule 2 TIMES DAILY 1 capsule 2 TIMES DAILY (route: oral) Med Classific ation: Central Nervous System Agents iron 325 mg (65 mg iron) tablet 11-12 00:00: 00 08-01 23:59 :00 No [id number] 1 tablet DAILY 1 tablet DAILY (route: oral) Med Classific ation: Electroly te Balance-N utritiona l Products pantoprazol e 40 mg tablet,shayna yed release 11-12 00:00: 00 08-01 23:59 :00 No [id number] 1 tablet DAILY 1 tablet DAILY (route: oral) Med Classific ation: Gastroint estinal Therapy Agents spironolact one 50 mg tablet 11-12 00:00: 00 02-01 23:59 :00 No [id number] 1 tablet DAILY 1 tablet DAILY (route: oral) Med Classific ation: Cardiovas cular Therapy Agents Trulicity 0.75 mg/0.5 mL subcutaneou s pen injector 11-12 00:00: 00 08-01 23:59 :00 No [id number] 0.5 mL WEEKLY 0.5 mL WEEKLY (route: subcutaneo us) Med Classific ation: Endocrine Vitamin B-12 500 mcg tablet 11-12 00:00: 00 02-01 00:00 :00 No [id number] 2 tablet BEDTIME 2 tablet BEDTIME (route: oral) Med Classific ation: Electroly te Balance-N utritiona l Products alprazolam 0.5 mg tablet 02-08 00:00: 00 04-25 23:59 :00 No [id number] 1 tablet 2 TIMES DAILY 1 tablet 2 TIMES DAILY (route: oral) Med Classific ation: Central Nervous System Agents bumetanide 1 mg tablet 02-01 00:00: 00 02-17 23:59 :00 No [id number] 1 mg DAILY 1 mg DAILY (route: oral) Med Classific ation: Cardiovas cular Therapy Agents ciprofloxac in 500 mg tablet 02-01 00:00: 00 02-02 23:59 :00 No [id number] 1 tablet DAILY 1 tablet DAILY (route: oral) Med Classific ation: Anti-Infe ctive Agents cyanocobala min (vit B-12) 500 mcg tablet 02-01 00:00: 00 08-01 23:59 :00 No [id number] 2 tablet BEDTIME 2 tablet BEDTIME (route: oral) Med Classific ation: Electroly te Balance-N utritiona l Products gabapentin 400 mg capsule 02-08 00:00: 00 04-25 23:59 :00 No [id number] 1 capsule 2 TIMES DAILY 1 capsule 2 TIMES DAILY (route: oral) Med Classific ation: Central Nervous System Agents lactulose 20 gram/30 mL oral solution 02-01 00:00: 00 04-25 23:59 :00 No [id number] 45 mL 3 TIMES DAILY 45 mL 3 TIMES DAILY (route: oral) Med Classific ation: Gastroint estinal Therapy Agents Tresiba FlexTouch U-100 insulin 100 unit/mL (3 mL) subcutaneou s pen 02-01 00:00: 00 08-01 23:59 :00 No [id number] 6 unit BEDTIME 6 unit BEDTIME (route: subcutaneo us) Med Classific ation: Endocrine bumetanide 1 mg tablet 02-17 00:00: 00 02-21 23:59 :00 No [id number] 2 tablet DAILY 2 tablet DAILY (route: oral) Med Classific ation: Cardiovas cular Therapy Agents bumetanide 1 mg tablet 02-17 00:00: 00 03-01 23:59 :00 No [id number] 1 tablet 2 TIMES DAILY 1 tablet 2 TIMES DAILY (route: oral) Med Classific ation: Cardiovas cular Therapy Agents spironolact one 25 mg tablet 03-01 00:00: 00 04-25 00:00 :00 No [id number] 2 tablet DAILY 2 tablet DAILY (route: oral) Med Classific ation: Cardiovas cular Therapy Agents torsemide 20 mg tablet 03-01 00:00: 00 04-25 00:00 :00 No [id number] 2 tablet DAILY 2 tablet DAILY (route: oral) Med Classific ation: Cardiovas cular Therapy Agents midodrine 10 mg tablet 03-01 00:00: 00 08-01 23:59 :00 No [id number] 1 tablet DIRECTED 1 tablet DIRECTED (route: oral) Med Classific ation: Cardiovas cular Therapy Agents Humulin R Regular U-100 Insulin 100 unit/mL injection solution 03-21 00:00: 00 04-25 00:00 :00 No [id number] 20 unit 3 TIMES DAILY 20 unit 3 TIMES DAILY (route: injection) Med Classific ation: Endocrine Basaglar KwikPen U-100 Insulin 100 unit/mL (3 mL) [facility] 04-25 00:00: 00 08-01 23:59 :00 No [id number] 1 unit 3 TIMES DAILY 1 unit 3 TIMES DAILY (route: subcutaneo us) Med Classific ation: Endocrine bumetanide 1 mg tablet 04-25 00:00: 00 08-01 23:59 :00 No [id number] 1 tablet DAILY 1 tablet DAILY (route: oral) Med Classific ation: Cardiovas cular Therapy Agents spironolact one 25 mg tablet 04-25 00:00: 00 08-01 23:59 :00 No [id number] 1 tablet DAILY 1 tablet DAILY (route: oral) Med Classific ation: Cardiovas cular Therapy Agents atorvastati n 80 mg tablet 04-26 00:00: 00 08-01 23:59 :00 No [id number] 0.5 tablet BEDTIME 0.5 tablet BEDTIME (route: oral) Med Classific ation: Cardiovas cular Therapy Agents carvedilol 6.25 mg tablet 04-26 00:00: 00 08-01 23:59 :00 No [id number] 1 tablet 2 TIMES DAILY 1 tablet 2 TIMES DAILY (route: oral) Med Classific ation: Cardiovas cular Therapy Agents alprazolam 0.5 mg tablet 04-26 00:00: 00 08-01 23:59 :00 No [id number] 1 tablet 2 TIMES DAILY 1 tablet 2 TIMES DAILY (route: oral) Med Classific ation: Central Nervous System Agents gabapentin 300 mg capsule 04-26 00:00: 00 08-01 23:59 :00 No [id number] 1 capsule 2 TIMES DAILY 1 capsule 2 TIMES DAILY (route: oral) Med Classific ation: Central Nervous System Agents cyanocobala min (vit B-12) 500 mcg tablet 04-26 00:00: 00 08-01 23:59 :00 No [id number] 2 tablet BEDTIME 2 tablet BEDTIME (route: oral) Med Classific ation: Electroly te Balance-N utritiona l Products lactulose 10 gram/15 mL oral solution 04-26 00:00: 00 08-01 23:59 :00 No [id number] 30 mL 2 TIMES DAILY 30 mL [...] CARE WILL BE ESTABLISHED THAT MEETS PATIENT'S FPC NEEDS AND INCLUDES PATIENT GOAL FOR HOME [...] End Date/Time Encounter Type Admission Type Attending [facility] Care Facility Care Department Encounter ID Discharge Date Discharge Status Discharge Condition Discharge Reason Percent Goals Met 2023-11-13 00:00:00 2024-05-10 00:00:00 [facility] [id number] 2024-05-10 00:00:00 DISCHARGED /TRANSFERR ED TO A [facility] FOR INPATIENT CARE REMAINS INPATIENT AT TIME OF DISCHARGE REMAINS IN INPATIENT FACILITY AT END OF CERT PERIOD 75.76
--- OUTSIDE RECORDS SUMMARY | 2024-09-12 09:35 | XMS_ITS | Clinical Summary ---
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) USE INJECTABLE NON-INSULIN ANTIDIABETIC DRUGS Active 09-14 00:00: 00 ASSISTED (CURRENT) USE OF ORAL 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 DRUGS Active 09-14 00:00: 00 ASSISTED (CURRENT) USE OF ANTITHROMBOT ICS/ANTIPLAT ELETS Active [...] 01-14 00:00: 00 02-08 23:59 :00 No [id number] ANXIETY 1 tablet 2 TIMES DAILY 1 tablet 2 TIMES DAILY (route: oral) Med Classific ation: Central Nervous System Agents atorvastati n 80 mg tablet 01-14 00:00: 00 Yes [id number] CHOLESTEROL 1 tablet DAILY 1 tablet DAILY (route: oral) Med Classific ation: Cardiovas cular Therapy Agents bethanechol chloride 25 mg tablet 01-14 00:00: 00 Yes [id number] BLADDER 1 tablet 2 TIMES DAILY 1 tablet 2 TIMES DAILY (route: oral) Med Classific ation: Genitouri nary Therapy Farxiga 10 mg tablet 01-14 00:00: 00 Yes [id number] DM2 1 tablet DAILY 1 tablet DAILY (route: oral) Med Classific ation: Endocrine finasteride 5 mg tablet 01-14 00:00: 00 Yes [id number] BPH 1 tablet DAILY 1 tablet DAILY (route: oral) Med Classific ation: Genitouri nary Therapy gabapentin 400 mg capsule 01-14 00:00: 00 Yes [id number] NERVE PAIN 1 capsule 3 TIMES DAILY 1 capsule 3 TIMES DAILY (route: oral) Med Classific ation: Central Nervous System Agents insulin aspar prot-insuli n aspart 100 unit/mL (70-30) [facility] pen 01-14 00:00: 00 01-16 16:23 :30.0 57 No [id number] DM2 2-25 In unit 3 TIMES DAILY 2-25 In unit 3 TIMES DAILY (route: subcutaneo us) Med Classific ation: Endocrine iron 325 mg (65 mg iron) tablet 01-14 00:00: 00 Yes [id number] SUPPLEMENT 1 tablet DAILY 1 tablet DAILY (route: oral) Med Classific ation: Electroly te Balance-N utritiona l Products mecobalamin (vitamin B12) 1,000 mcg chewable tablet 01-14 00:00: 00 Yes [id number] SUPPLEMENT 1 tablet DAILY 1 tablet DAILY (route: oral) Med Classific ation: Electroly te Balance-N utritiona l Products metoprolol succinate ER 100 mg tablet,exte nded release 24 hr 01-14 00:00: 00 02-08 23:59 :00 No [id number] HTN 1 tablet DAILY 1 tablet DAILY (route: oral) Med Classific ation: Cardiovas cular Therapy Agents omeprazole 20 mg capsule,del ayed release 01-14 00:00: 00 02-08 23:59 :00 No [id number] GERD 1 capsule 2 TIMES DAILY 1 capsule 2 TIMES DAILY (route: oral) Med Classific ation: Gastroint estinal Therapy Agents Plavix 75 mg tablet 01-14 00:00: 00 Yes [id number] CLOTING 1 tablet DAILY 1 tablet DAILY (route: oral) Med Classific ation: Hematolog ical Agents tamsulosin 0.4 mg capsule 01-14 00:00: 00 Yes [id number] BPH 1 capsule DAILY 1 capsule DAILY (route: oral) Med Classific ation: Genitouri nary Therapy torsemide 20 mg tablet 01-14 00:00: 00 02-08 23:59 :00 No [id number] EDEMA 1 tablet DAILY 1 tablet DAILY (route: oral) Med Classific ation: Cardiovas cular Therapy Agents tramadol 50 mg tablet 01-14 00:00: 00 Yes [id number] PAIN 0.5 tablet EVERY 6 HOURS 0.5 tablet EVERY 6 HOURS (route: oral) Med Classific ation: Analgesic , Anti-infl ammatory or Antipyret ic Tresiba FlexTouch U-100 insulin 100 unit/mL (3 mL) subcutaneou s pen 01-14 00:00: 00 02-08 23:59 :00 No [id number] DM2 64 In unit DAILY 64 In unit DAILY (route: subcutaneo us) Med Classific ation: Endocrine Trulicity 0.75 mg/0.5 mL subcutaneou s pen injector 01-14 00:00: 00 Yes [id number] DM2 0.5 mL WEEKLY 0.5 mL WEEKLY (route: subcutaneo us) Med Classific ation: Endocrine Zetia 10 mg tablet 01-14 00:00: 00 Yes [id number] CHOLESTEROL 1 tablet DAILY 1 tablet DAILY (route: oral) Med Classific ation: Cardiovas cular Therapy Agents ceftriaxone 1 gram intravenous solution 02-08 00:00: 00 03-08 23:59 :00 No [id number] infection 2 gram DAILY 2 gram DAILY (route: intravenou s) Med Classific ation: Anti-Infe ctive Agents sodium chloride 0.9 % intravenous solution 02-08 00:00: 00 Yes [id number] flush 10 mL DIRECTED 10 mL DIRECTED (route: intravenou s) Med Classific ation: Electroly te Balance-N utritiona l Products heparin, porcine (PF) 10 unit/mL intravenous syringe 02-08 00:00: 00 Yes [id number] flush 5 mL DIRECTED 5 mL DIRECTED (route: intravenou s) Med Classific ation: Hematolog ical Agents carvedilol 6.25 mg tablet 02-08 00:00: 00 Yes [id number] heart 1 tablet 2 TIMES DAILY 1 tablet 2 TIMES DAILY (route: oral) Med Classific ation: Cardiovas cular Therapy Agents Lasix 40 mg tablet 02-08 00:00: 00 Yes [id number] fluid 1 tablet 2 TIMES DAILY 1 tablet 2 TIMES DAILY (route: oral) Med Classific ation: Cardiovas cular Therapy Agents Tresiba U-100 Insulin 100 unit/mL subcutaneou s solution 02-08 00:00: 00 Yes [id number] blood sugar 10 unit BEDTIME 10 unit BEDTIME (route: subcutaneo us) Med Classific ation: Endocrine pantoprazol e 40 mg tablet,shayna yed release 02-08 00:00: 00 Yes [id number] gerd 1 tablet DAILY 1 tablet DAILY (route: oral) Med Classific ation: Gastroint estinal Therapy Agents Aldactone 100 mg tablet 02-08 00:00: 00 Yes [id number] BP 1 tablet DAILY 1 tablet DAILY (route: oral) Med Classific ation: Cardiovas cular Therapy Agents aspirin 81 mg tablet,shayna yed release 02-08 00:00: 00 Yes [id number] ANTICOAGULA NT 1 tablet DAILY 1 tablet DAILY (route: oral) Med Classific ation: Hematolog ical Agents ceftriaxone 2 gram intravenous solution 02-08 00:00: 00 03-08 23:59 :00 No [id number] CERVICAL OSTEOMYELIT IS 2 g DAILY 2 g DAILY (route: intravenou s) Med Classific ation: Anti-Infe ctive Agents Coreg 6.25 mg tablet 02-08 00:00: 00 Yes [id number] BP 1 tablet 2 TIMES DAILY 1 tablet 2 TIMES DAILY (route: oral) Med Classific ation: Cardiovas cular Therapy Agents lactulose 10 gram/15 mL (15 mL) oral solution 02-08 00:00: 00 Yes [id number] LAXATIVE 15 mL NEEDED 15 mL NEEDED (route: oral) Med Classific ation: Gastroint estinal Therapy Agents Lasix 40 mg tablet 02-08 00:00: 00 Yes [id number] DIURETIC 1 tablet DAILY 1 tablet DAILY (route: oral) Med Classific ation: Cardiovas cular Therapy Agents midodrine 10 mg tablet 02-08 00:00: 00 Yes [id number] BP 1 tablet 3 TIMES DAILY 1 tablet 3 TIMES DAILY (route: oral) Med Classific ation: Cardiovas cular Therapy Agents Novolog FlexPen U-100 Insulin aspart 100 unit/mL (3 mL) subcutaneou s 02-08 00:00: 00 Yes [id number] DM2 Per instruc tions BEFORE MEALS Per instructio ns BEFORE MEALS (route: subcutaneo us) Med Classific ation: Endocrine pantoprazol e 40 mg tablet,shayna yed release 02-08 00:00: 00 Yes [id number] REFLUX 1 tablet DAILY 1 tablet DAILY (route: oral) Med Classific ation: Gastroint estinal Therapy Agents Tresiba FlexTouch U-100 insulin 100 unit/mL (3 mL) subcutaneou s pen 02-08 00:00: 00 Yes [id number] DM2 10 unit BEDTIME 10 unit BEDTIME [...] PATIENT REPORTED WEIGHT AND NOTIFY CM / AUTOMATION ARCHITECT FOR MD NOTIFICATION FOR SIGNS AND SYMPTOMS [...] PATIENT REPORTED WEIGHT AND NOTIFY CM / AUTOMATION ARCHITECT FOR MD NOTIFICATION FOR SIGNS AND SYMPTOMS [...] End Date/Time Encounter Type Admission Type Attending [facility] Facility Care Department Encounter ID Discharge Date Discharge Status Discharge Condition Discharge Reason Percent Goals Met 2023-01-14 00:00:00 2023-03-12 00:00:00 Outpatient [facility] [id number] 2023-03-12 00:00:00 DISCHARGE TO HOME OR SELF CARE INDEPENDEN T IN THE [facility] OR [facility]- GOALS MET 100.00
--- OUTSIDE RECORDS SUMMARY | 2024-09-12 09:35 | XMS_ITS | Clinical Summary ---
Author Organization Unknown Care Team Providers Care Automated Teller Manager Name Role Phone RYAN TAPIA, LEI Unavailable Unavailable AUSTIN RN, NEYDA Unavailable Unavailable GUZMAN RN, GUILLERMO Unavailable Unavailable NORMA THORNE, RAPHAEL Unavailable Unavailable Payers Payer Name Policy Type Policy Number Effective Date Expira tion Date MEDICARE - NGS PR/[facility] [id number] [facility] [id number] Problems Condition Name Condition Details Condition Category [...] 11-12 00:00: 00 ATHSCL HEART DISEASE OF [place] CORONARY ARTERY W/O ANG PCTRS Active 11-12 [...] 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 11-12 00:00: 00 [facility] (CURRENT) USE OF ASPIRIN Active 11-12 00:00: 00 [facility] (CURRENT) USE OF ORAL 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 DRUGS Active 11-12 00:00: 00 [facility] (CURRENT) USE OF INSULIN Active 11-12 00:00: [...] 10-21 00:00: 00 02-01 23:59 :00 No [id number] Per instruc tions AT BEDTIME Per instructio ns AT BEDTIME (route: subcutaneo us) Med Classific ation: Endocrine bethanechol chloride 25 mg tablet 10-18 00:00: 00 04-25 00:00 :00 No [id number] Per instruc tions TWICE DAILY Per instructio ns TWICE DAILY (route: oral) Med Classific ation: Genitouri nary Therapy Farxiga 10 mg tablet 2-04 00:00: 00 08-01 23:59 :00 No [id number] Per instruc tions DAILY Per instructio ns DAILY (route: oral) Med Classific ation: Endocrine ezetimibe 10 mg tablet 1-30 00:00: 00 08-01 23:59 :00 No [id number] Unavailable Per instruc tions DAILY Per instructio ns DAILY (route: oral) Med Classific ation: Cardiovas cular Therapy Agents Novolog FlexPen U-100 Insulin aspart 100 unit/mL (3 mL) subcutane s 1- 00:00: 00 03-21 23:59 :00 No [id number] Per instruc tions 3 TIMES DAILY Per instructio ns 3 TIMES DAILY (route: subcutaneo us) Med Classific ation: Endocrine Basaglar KwikPen U-100 Insulin 100 unit/mL (3 mL) [facility] s 1-25 00:00: 00 11-12 23:59 :00 No [id number] Unavailable Per instruc tions SUBCUTANEO US ONCE EVERY Per instructio ns SUBCUTANEO US ONCE EVERY (route: subcutaneo us) Med Classific ation: Endocrine alprazolam 0.5 mg tablet 1-22 00:00: 00 02-01 23:59 :00 No [id number] Unavailable Per instruc tions TWICE DAILY NEEDED Per instructio ns TWICE DAILY NEEDED (route: oral) Med Classific ation: Central Nervous System Agents aspirin 81 mg tablet,shayna yed release - 00:00: 00 04-25 23:59 :00 No [id number] 1 tablet DAILY 1 tablet DAILY (route: oral) Med Classific ation: Hematolog ical Agents atorvastati n 80 mg tablet 3- 00:00: 00 04-25 23:59 :00 No [id number] 1 tablet BEDTIME 1 tablet BEDTIME (route: oral) Med Classific ation: Cardiovas cular Therapy Agents carvedilol 6.25 mg tablet 11-12 00:00: 00 03-01 23:59 :00 No [id number] 1 tablet 2 TIMES DAILY 1 tablet 2 TIMES DAILY (route: oral) Med Classific ation: Cardiovas cular Therapy Agents finasteride 5 mg tablet 11-12 00:00: 00 08-01 23:59 :00 No [id number] 1 tablet DAILY 1 tablet DAILY (route: oral) Med Classific ation: Genitouri nary Therapy Flomax 0.4 mg capsule 11-12 00:00: 00 08-01 23:59 :00 No [id number] 1 capsule DAILY 1 capsule DAILY (route: oral) Med Classific ation: Genitouri nary Therapy gabapentin 400 mg capsule 11-12 00:00: 00 02-01 23:59 :00 No [id number] 1 capsule 2 TIMES DAILY 1 capsule 2 TIMES DAILY (route: oral) Med Classific ation: Central Nervous System Agents iron 325 mg (65 mg iron) tablet 11-12 00:00: 00 08-01 23:59 :00 No [id number] 1 tablet DAILY 1 tablet DAILY (route: oral) Med Classific ation: Electroly te Balance-N utritiona l Products pantoprazol e 40 mg tablet,shayna yed release 11-12 00:00: 00 08-01 23:59 :00 No [id number] 1 tablet DAILY 1 tablet DAILY (route: oral) Med Classific ation: Gastroint estinal Therapy Agents spironolact one 50 mg tablet 11-12 00:00: 00 02-01 23:59 :00 No [id number] 1 tablet DAILY 1 tablet DAILY (route: oral) Med Classific ation: Cardiovas cular Therapy Agents Trulicity 0.75 mg/0.5 mL subcutaneou s pen injector 11-12 00:00: 00 08-01 23:59 :00 No [id number] 0.5 mL WEEKLY 0.5 mL WEEKLY (route: subcutaneo us) Med Classific ation: Endocrine Vitamin B-12 500 mcg tablet 11-12 00:00: 00 02-01 00:00 :00 No [id number] 2 tablet BEDTIME 2 tablet BEDTIME (route: oral) Med Classific ation: Electroly te Balance-N utritiona l Products alprazolam 0.5 mg tablet 02-08 00:00: 00 04-25 23:59 :00 No [id number] 1 tablet 2 TIMES DAILY 1 tablet 2 TIMES DAILY (route: oral) Med Classific ation: Central Nervous System Agents bumetanide 1 mg tablet 02-01 00:00: 00 02-17 23:59 :00 No [id number] 1 mg DAILY 1 mg DAILY (route: oral) Med Classific ation: Cardiovas cular Therapy Agents ciprofloxac in 500 mg tablet 02-01 00:00: 00 02-02 23:59 :00 No [id number] 1 tablet DAILY 1 tablet DAILY (route: oral) Med Classific ation: Anti-Infe ctive Agents cyanocobala min (vit B-12) 500 mcg tablet 02-01 00:00: 00 08-01 23:59 :00 No [id number] 2 tablet BEDTIME 2 tablet BEDTIME (route: oral) Med Classific ation: Electroly te Balance-N utritiona l Products gabapentin 400 mg capsule 02-08 00:00: 00 04-25 23:59 :00 No [id number] 1 capsule 2 TIMES DAILY 1 capsule 2 TIMES DAILY (route: oral) Med Classific ation: Central Nervous System Agents lactulose 20 gram/30 mL oral solution 02-01 00:00: 00 04-25 23:59 :00 No [id number] 45 mL 3 TIMES DAILY 45 mL 3 TIMES DAILY (route: oral) Med Classific ation: Gastroint estinal Therapy Agents Tresiba FlexTouch U-100 insulin 100 unit/mL (3 mL) subcutaneou s pen 02-01 00:00: 00 08-01 23:59 :00 No [id number] 6 unit BEDTIME 6 unit BEDTIME (route: subcutaneo us) Med Classific ation: Endocrine bumetanide 1 mg tablet 02-17 00:00: 00 02-21 23:59 :00 No [id number] 2 tablet DAILY 2 tablet DAILY (route: oral) Med Classific ation: Cardiovas cular Therapy Agents bumetanide 1 mg tablet 02-17 00:00: 00 03-01 23:59 :00 No [id number] 1 tablet 2 TIMES DAILY 1 tablet 2 TIMES DAILY (route: oral) Med Classific ation: Cardiovas cular Therapy Agents spironolact one 25 mg tablet 03-01 00:00: 00 04-25 00:00 :00 No [id number] 2 tablet DAILY 2 tablet DAILY (route: oral) Med Classific ation: Cardiovas cular Therapy Agents torsemide 20 mg tablet 03-01 00:00: 00 04-25 00:00 :00 No [id number] 2 tablet DAILY 2 tablet DAILY (route: oral) Med Classific ation: Cardiovas cular Therapy Agents midodrine 10 mg tablet 03-01 00:00: 00 08-01 23:59 :00 No [id number] 1 tablet DIRECTED 1 tablet DIRECTED (route: oral) Med Classific ation: Cardiovas cular Therapy Agents Humulin R Regular U-100 Insulin 100 unit/mL injection solution 03-21 00:00: 00 04-25 00:00 :00 No [id number] 20 unit 3 TIMES DAILY 20 unit 3 TIMES DAILY (route: injection) Med Classific ation: Endocrine Basaglar KwikPen U-100 Insulin 100 unit/mL (3 mL) sub[facility] 04-25 00:00: 00 08-01 23:59 :00 No [id number] 1 unit 3 TIMES DAILY 1 unit 3 TIMES DAILY (route: subcutaneo us) Med Classific ation: Endocrine bumetanide 1 mg tablet 04-25 00:00: 00 08-01 23:59 :00 No [id number] 1 tablet DAILY 1 tablet DAILY (route: oral) Med Classific ation: Cardiovas cular Therapy Agents spironolact one 25 mg tablet 04-25 00:00: 00 08-01 23:59 :00 No [id number] 1 tablet DAILY 1 tablet DAILY (route: oral) Med Classific ation: Cardiovas cular Therapy Agents atorvastati n 80 mg tablet 04-26 00:00: 00 08-01 23:59 :00 No [id number] 0.5 tablet BEDTIME 0.5 tablet BEDTIME (route: oral) Med Classific ation: Cardiovas cular Therapy Agents carvedilol 6.25 mg tablet 04-26 00:00: 00 08-01 23:59 :00 No [id number] 1 tablet 2 TIMES DAILY 1 tablet 2 TIMES DAILY (route: oral) Med Classific ation: Cardiovas cular Therapy Agents alprazolam 0.5 mg tablet 04-26 00:00: 00 08-01 23:59 :00 No [id number] 1 tablet 2 TIMES DAILY 1 tablet 2 TIMES DAILY (route: oral) Med Classific ation: Central Nervous System Agents gabapentin 300 mg capsule 04-26 00:00: 00 08-01 23:59 :00 No [id number] 1 capsule 2 TIMES DAILY 1 capsule 2 TIMES DAILY (route: oral) Med Classific ation: Central Nervous System Agents cyanocobala min (vit B-12) 500 mcg tablet 04-26 00:00: 00 08-01 23:59 :00 No [id number] 2 tablet BEDTIME 2 tablet BEDTIME (route: oral) Med Classific ation: Electroly te Balance-N utritiona l Products lactulose 10 gram/15 mL oral solution 04-26 00:00: 00 08-01 23:59 :00 No [id number] 30 mL 2 TIMES DAILY 30 mL [...] End Date/Time Encounter Type Admission Type Attending [facility] Facility Care Department Encounter ID Discharge Date Discharge Status Discharge Condition Discharge Reason Percent Goals Met 2023-11-13 00:00:00 2024-05-10 00:00:00 Outpatient [facility] [id number] 2024-05-10 00:00:00 DISCHARGED /TRANSFERR ED TO A [facility] FOR [facility]PATIENT CARE REMAINS INPATIENT AT TIME OF DISCHARGE REMAINS IN INPATIENT FACILITY AT END OF CERT PERIOD 75.76
--- OUTSIDE RECORDS SUMMARY | 2024-09-12 09:35 | XMS_ITS | Clinical Summary ---
Author Organization Unknown Care Team Providers Care Sales Recruitment Specialist Name Role Phone RYAN TAPIA, LEI Unavailable Unavailable JOSE THORNE, GRETA Unavailable Unavailable Payers Payer Name Policy Type Policy Number Effective Date Expira tion Date MEDICARE.NGS.PDGM [id number] Problems Condition Name Condition Details Condition Category [...] 02-08 00:00: 00 ATHSCL HEART DISEASE OF [place] CORONARY ARTERY W/O ANG PCTRS Active 09-14 [...] MANAGEMENT OF VAD Active 02-08 00:00: 00 [facility] (CURRENT) USE OF INSULIN Active 09-14 00:00: 00 LNG TRM (CRNT) USE INJECTABLE NON-INSULIN ANTIDIABETIC DRUGS Active 09-14 00:00: 00 [facility] (CURRENT) USE OF ORAL 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 DRUGS Active 09-14 00:00: 00 [facility] (CURRENT) USE OF ANTITHROMBOT ICS/ANTIPLAT ELETS Active [...] 01-14 00:00: 00 02-08 23:59 :00 No [id number] ANXIETY 1 tablet 2 TIMES DAILY 1 tablet 2 TIMES DAILY (route: oral) Med Classific ation: Central Nervous System Agents atorvastati n 80 mg tablet 01-14 00:00: 00 Yes [id number] CHOLESTEROL 1 tablet DAILY 1 tablet DAILY (route: oral) Med Classific ation: Cardiovas cular Therapy Agents bethanechol chloride 25 mg tablet 01-14 00:00: 00 Yes [id number] BLADDER 1 tablet 2 TIMES DAILY 1 tablet 2 TIMES DAILY (route: oral) Med Classific ation: Genitouri nary Therapy Farxiga 10 mg tablet 01-14 00:00: 00 Yes [id number] DM2 1 tablet DAILY 1 tablet DAILY (route: oral) Med Classific ation: Endocrine finasteride 5 mg tablet 01-14 00:00: 00 Yes [id number] BPH 1 tablet DAILY 1 tablet DAILY (route: oral) Med Classific ation: Genitouri nary Therapy gabapentin 400 mg capsule 01-14 00:00: 00 Yes [id number] NERVE PAIN 1 capsule 3 TIMES DAILY 1 capsule 3 TIMES DAILY (route: oral) Med Classific ation: Central Nervous System Agents insulin aspar prot-insuli n aspart 100 unit/mL (70-30) [facility] 01-14 00:00: 00 01-16 16:23 :30.0 57 No [id number] DM2 2-25 In unit 3 TIMES DAILY 2-25 In unit 3 TIMES DAILY (route: subcutaneo us) Med Classific ation: Endocrine iron 325 mg (65 mg iron) tablet 01-14 00:00: 00 Yes [id number] SUPPLEMENT 1 tablet DAILY 1 tablet DAILY (route: oral) Med Classific ation: Electroly te Balance-N utritiona l Products mecobalamin (vitamin B12) 1,000 mcg chewable tablet 01-14 00:00: 00 Yes [id number] SUPPLEMENT 1 tablet DAILY 1 tablet DAILY (route: oral) Med Classific ation: Electroly te Balance-N utritiona l Products metoprolol succinate ER 100 mg tablet,exte nded release 24 hr 01-14 00:00: 00 02-08 23:59 :00 No [id number] HTN 1 tablet DAILY 1 tablet DAILY (route: oral) Med Classific ation: Cardiovas cular Therapy Agents omeprazole 20 mg capsule,del ayed release 01-14 00:00: 00 02-08 23:59 :00 No [id number] GERD 1 capsule 2 TIMES DAILY 1 capsule 2 TIMES DAILY (route: oral) Med Classific ation: Gastroint estinal Therapy Agents Plavix 75 mg tablet 01-14 00:00: 00 Yes [id number] CLOTING 1 tablet DAILY 1 tablet DAILY (route: oral) Med Classific ation: Hematolog ical Agents tamsulosin 0.4 mg capsule 01-14 00:00: 00 Yes [id number] BPH 1 capsule DAILY 1 capsule DAILY (route: oral) Med Classific ation: Genitouri nary Therapy torsemide 20 mg tablet 01-14 00:00: 00 02-08 23:59 :00 No [id number] EDEMA 1 tablet DAILY 1 tablet DAILY (route: oral) Med Classific ation: Cardiovas cular Therapy Agents tramadol 50 mg tablet 01-14 00:00: 00 Yes [id number] PAIN 0.5 tablet EVERY 6 HOURS 0.5 tablet EVERY 6 HOURS (route: oral) Med Classific ation: Analgesic , Anti-infl ammatory or Antipyret ic Tresiba FlexTouch U-100 insulin 100 unit/mL (3 mL) subcutaneou s pen 01-14 00:00: 00 02-08 23:59 :00 No [id number] DM2 64 In unit DAILY 64 In unit DAILY (route: subcutaneo us) Med Classific ation: Endocrine Trulicity 0.75 mg/0.5 mL subcutaneou s pen injector 01-14 00:00: 00 Yes [id number] DM2 0.5 mL WEEKLY 0.5 mL WEEKLY (route: subcutaneo us) Med Classific ation: Endocrine Zetia 10 mg tablet 01-14 00:00: 00 Yes [id number] CHOLESTEROL 1 tablet DAILY 1 tablet DAILY (route: oral) Med Classific ation: Cardiovas cular Therapy Agents ceftriaxone 1 gram intravenous solution 02-08 00:00: 00 03-08 23:59 :00 No [id number] infection 2 gram DAILY 2 gram DAILY (route: intravenou s) Med Classific ation: Anti-Infe ctive Agents sodium chloride 0.9 % intravenous solution 02-08 00:00: 00 Yes [id number] flush 10 mL DIRECTED 10 mL DIRECTED (route: intravenou s) Med Classific ation: Electroly te Balance-N utritiona l Products heparin, porcine (PF) 10 unit/mL intravenous syringe 02-08 00:00: 00 Yes [id number] flush 5 mL DIRECTED 5 mL DIRECTED (route: intravenou s) Med Classific ation: Hematolog ical Agents carvedilol 6.25 mg tablet 02-08 00:00: 00 Yes [id number] heart 1 tablet 2 TIMES DAILY 1 tablet 2 TIMES DAILY (route: oral) Med Classific ation: Cardiovas cular Therapy Agents Lasix 40 mg tablet 02-08 00:00: 00 Yes [id number] fluid 1 tablet 2 TIMES DAILY 1 tablet 2 TIMES DAILY (route: oral) Med Classific ation: Cardiovas cular Therapy Agents Tresiba U-100 Insulin 100 unit/mL subcutaneou s solution 02-08 00:00: 00 Yes [id number] blood sugar 10 unit BEDTIME 10 unit BEDTIME (route: subcutaneo us) Med Classific ation: Endocrine pantoprazol e 40 mg tablet,shayna yed release 02-08 00:00: 00 Yes [id number] gerd 1 tablet DAILY 1 tablet DAILY (route: oral) Med Classific ation: Gastroint estinal Therapy Agents Aldactone 100 mg tablet 02-08 00:00: 00 Yes [id number] BP 1 tablet DAILY 1 tablet DAILY (route: oral) Med Classific ation: Cardiovas cular Therapy Agents aspirin 81 mg tablet,shayna yed release 02-08 00:00: 00 Yes [id number] ANTICOAGULA NT 1 tablet DAILY 1 tablet DAILY (route: oral) Med Classific ation: Hematolog ical Agents ceftriaxone 2 gram intravenous solution 02-08 00:00: 00 03-08 23:59 :00 No [id number] CERVICAL OSTEOMYELIT IS 2 g DAILY 2 g DAILY (route: intravenou s) Med Classific ation: Anti-Infe ctive Agents Coreg 6.25 mg tablet 02-08 00:00: 00 Yes [id number] BP 1 tablet 2 TIMES DAILY 1 tablet 2 TIMES DAILY (route: oral) Med Classific ation: Cardiovas cular Therapy Agents lactulose 10 gram/15 mL (15 mL) oral solution 02-08 00:00: 00 Yes [id number] LAXATIVE 15 mL NEEDED 15 mL NEEDED (route: oral) Med Classific ation: Gastroint estinal Therapy Agents Lasix 40 mg tablet 02-08 00:00: 00 Yes [id number] DIURETIC 1 tablet DAILY 1 tablet DAILY (route: oral) Med Classific ation: Cardiovas cular Therapy Agents midodrine 10 mg tablet 02-08 00:00: 00 Yes [id number] BP 1 tablet 3 TIMES DAILY 1 tablet 3 TIMES DAILY (route: oral) Med Classific ation: Cardiovas cular Therapy Agents Novolog FlexPen U-100 Insulin aspart 100 unit/mL (3 mL) subcutaneou s 02-08 00:00: 00 Yes [id number] DM2 Per instruc tions BEFORE MEALS Per instructio ns BEFORE MEALS (route: subcutaneo us) Med Classific ation: Endocrine pantoprazol e 40 mg tablet,shayna yed release 02-08 00:00: 00 Yes [id number] REFLUX 1 tablet DAILY 1 tablet DAILY (route: oral) Med Classific ation: Gastroint estinal Therapy Agents Tresiba FlexTouch U-100 insulin 100 unit/mL (3 mL) subcutaneou s pen 02-08 00:00: 00 Yes [id number] DM2 10 unit BEDTIME 10 unit BEDTIME [...] PATIENT REPORTED WEIGHT AND NOTIFY CM / CHAIN SALES REPRESENTATIVE FOR MD NOTIFICATION FOR SIGNS AND SYMPTOMS [...] PATIENT REPORTED WEIGHT AND NOTIFY CM / CHAIN SALES REPRESENTATIVE FOR MD NOTIFICATION FOR SIGNS AND SYMPTOMS [...] End Date/Time Encounter Type Admission Type Attending [facility] Care Department Encounter ID Discharge Date Discharge Status Discharge Condition Discharge Reason Percent Goals Met 2023-01-14 00:00:00 2023-03-12 00:00:00 Outpatient GRETA DELGADO [facility] [id number] 2023-03-12 00:00:00 DISCHARGE TO HOME OR SELF CARE INDEPENDEN T IN THE [facility] OR [facility]- GOALS MET 100.00
== END 2024-09-12 10:47 | disposition home or self-care (01) ==
PROVIDERS: PCP Physician Assistant; Visit Provider Physician Assistant
DX: K74.60 Unspecified cirrhosis of liver (principal); R18.8 Other ascites; D61.818 Other pancytopenia; I10 Essential (primary) hypertension

== ENCOUNTER 2024-09-19 08:28 | Outpatient (REF) | payer MEDICARE, SELFPAY ==
[2024-09-19 13:49] LABS: MANUAL DIFF FLAG NO
[2024-09-19 13:51] LABS: Basophils Percent Auto 0.8 % (0-2); Eosinophils Absolute Auto 0.1 X10*3/uL (0.0-0.4); Eosinophils Percent Auto 2.2 % (0-4); Hematocrit 21.7 % (42.0-52.0); Imm Gran Abs Auto 0.02 X10*3/uL (0.00-0.03); Imm Gran Pct Auto 0.5 % (0.0-0.4); Lymphocytes Absolute Auto 0.4 X10*3/uL (1.2-4.9); Lymphocytes Percent Auto 9.7 % (20-40); Mean Corpuscular HGB Conc 29.5 g/dl (31.0-36.0); Mean Corpuscular Volume 91.6 fL (80.0-98.0); Mean Platelet Volume 11.3 fL (9.4-12.4); Monocytes Absolute Auto 0.6 X10*3/uL (0.1-1.2); Monocytes Percent Auto 14.8 % (2-11); Neutrophils Absolute Auto 2.7 x10*3/uL (2.0-8.3); Platelet Count 118 X10*3/uL (160-400); Red Blood Count 2.37 X10*6/uL (4.60-5.80); Red Cell Distribution Width 15.6 % (11.0-16.0); White Blood Count 3.7 X10*3/uL (4.8-10.8)
[2024-09-19 14:04] LABS: Hemoglobin 6.4 g/dl (14.0-18.0)
[2024-09-19 14:20] LABS: Ferritin 35 ng/mL (20-250)
== END 2024-09-19 08:29 | disposition home or self-care (01) ==
LOC: HO.LHD 08:28
PROVIDERS: Visit Provider Internal Medicine
DX: D64.9 Anemia, unspecified (principal)
CPT/HCPCS: 36415; 82728; 85025

== ENCOUNTER 2024-09-26 08:29 | Outpatient (REF) | payer MEDICARE, SELFPAY ==
--- OUTSIDE RECORDS SUMMARY | 2024-09-26 08:45 | XMS_ITS | Clinical Summary ---
Author Organization Unknown Care Team Providers Care Printing Supervisor Name Role Phone RYAN TAPIA, LEI Unavailable Unavailable AUSTIN RN, NEYDA Unavailable Unavailable GUZMNA RN, GUILLERMO Unavailable Unavailable NORMA THORNE, RAPHAEL Unavailable Unavailable Payers Payer Name Policy Type Policy Number Effective Date Expira tion Date MEDICARE - NGS [place]/[facility] [id number] [facility] [id number] Problems Condition Name Condition Details Condition Category [...] 00:00: 00 SPINAL STENOSIS, SITE UNSPECIFIED Active 3 00:00: 00 OTHER PANCYTOPENIA Active 3 00:00: [...] 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 11-12 00:00: 00 COTTON WASHER (CURRENT) USE OF ASPIRIN Active 11-12 00:00: 00 DETENTION (CURRENT) USE OF ORAL 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 DRUGS Active 11-12 00:00: 00 COTTON WASHER (CURRENT) USE OF INSULIN Active 11-12 00:00: [...] 10-21 00:00: 00 02-01 23:59 :00 No [id number] Per instruc tions AT BEDTIME Per instructio ns AT BEDTIME (route: subcutaneo us) Med Classific ation: Endocrine bethanechol chloride 25 mg tablet 10-18 00:00: 00 04-25 00:00 :00 No [id number] Per instruc tions TWICE DAILY Per instructio ns TWICE DAILY (route: oral) Med Classific ation: Genitouri nary Therapy Farxiga 10 mg tablet 2-04 00:00: 00 08-01 23:59 :00 No [id number] Per instruc tions DAILY Per instructio ns DAILY (route: oral) Med Classific ation: Endocrine ezetimibe 10 mg tablet 1-30 00:00: 00 08-01 23:59 :00 No [id number] Unavailable Per instruc tions DAILY Per instructio ns DAILY (route: oral) Med Classific ation: Cardiovas cular Therapy Agents Novolog FlexPen U-100 Insulin aspart 100 unit/mL (3 mL) subcutane s 1- 00:00: 00 03-21 23:59 :00 No [id number] Per instruc tions 3 TIMES DAILY Per instructio ns 3 TIMES DAILY (route: subcutaneo us) Med Classific ation: Endocrine Basaglar KwikPen U-100 Insulin 100 unit/mL (3 mL) [facility] 1-25 00:00: 00 11-12 23:59 :00 No [id number] Unavailable Per instruc tions SUBCUTANEO US ONCE EVERY Per instructio ns SUBCUTANEO US ONCE EVERY (route: subcutaneo us) Med Classific ation: Endocrine alprazolam 0.5 mg tablet 1-22 00:00: 00 02-01 23:59 :00 No [id number] Unavailable Per instruc tions TWICE DAILY NEEDED Per instructio ns TWICE DAILY NEEDED (route: oral) Med Classific ation: Central Nervous System Agents aspirin 81 mg tablet,shayna yed release - 00:00: 00 04-25 23:59 :00 No [id number] 1 tablet DAILY 1 tablet DAILY (route: oral) Med Classific ation: Hematolog ical Agents atorvastati n 80 mg tablet 3- 00:00: 00 04-25 23:59 :00 No [id number] 1 tablet BEDTIME 1 tablet BEDTIME (route: oral) Med Classific ation: Cardiovas cular Therapy Agents carvedilol 6.25 mg tablet 11-12 00:00: 00 03-01 23:59 :00 No [id number] 1 tablet 2 TIMES DAILY 1 tablet 2 TIMES DAILY (route: oral) Med Classific ation: Cardiovas cular Therapy Agents finasteride 5 mg tablet 11-12 00:00: 00 08-01 23:59 :00 No [id number] 1 tablet DAILY 1 tablet DAILY (route: oral) Med Classific ation: Genitouri nary Therapy Flomax 0.4 mg capsule 11-12 00:00: 00 08-01 23:59 :00 No [id number] 1 capsule DAILY 1 capsule DAILY (route: oral) Med Classific ation: Genitouri nary Therapy gabapentin 400 mg capsule 11-12 00:00: 00 02-01 23:59 :00 No [id number] 1 capsule 2 TIMES DAILY 1 capsule 2 TIMES DAILY (route: oral) Med Classific ation: Central Nervous System Agents iron 325 mg (65 mg iron) tablet 11-12 00:00: 00 08-01 23:59 :00 No [id number] 1 tablet DAILY 1 tablet DAILY (route: oral) Med Classific ation: Electroly te Balance-N utritiona l Products pantoprazol e 40 mg tablet,shayna yed release 11-12 00:00: 00 08-01 23:59 :00 No [id number] 1 tablet DAILY 1 tablet DAILY (route: oral) Med Classific ation: Gastroint estinal Therapy Agents spironolact one 50 mg tablet 11-12 00:00: 00 02-01 23:59 :00 No [id number] 1 tablet DAILY 1 tablet DAILY (route: oral) Med Classific ation: Cardiovas cular Therapy Agents Trulicity 0.75 mg/0.5 mL subcutaneou s pen injector 11-12 00:00: 00 08-01 23:59 :00 No [id number] 0.5 mL WEEKLY 0.5 mL WEEKLY (route: subcutaneo us) Med Classific ation: Endocrine Vitamin B-12 500 mcg tablet 11-12 00:00: 00 02-01 00:00 :00 No [id number] 2 tablet BEDTIME 2 tablet BEDTIME (route: oral) Med Classific ation: Electroly te Balance-N utritiona l Products alprazolam 0.5 mg tablet 02-08 00:00: 00 04-25 23:59 :00 No [id number] 1 tablet 2 TIMES DAILY 1 tablet 2 TIMES DAILY (route: oral) Med Classific ation: Central Nervous System Agents bumetanide 1 mg tablet 02-01 00:00: 00 02-17 23:59 :00 No [id number] 1 mg DAILY 1 mg DAILY (route: oral) Med Classific ation: Cardiovas cular Therapy Agents ciprofloxac in 500 mg tablet 02-01 00:00: 00 02-02 23:59 :00 No [id number] 1 tablet DAILY 1 tablet DAILY (route: oral) Med Classific ation: Anti-Infe ctive Agents cyanocobala min (vit B-12) 500 mcg tablet 02-01 00:00: 00 08-01 23:59 :00 No [id number] 2 tablet BEDTIME 2 tablet BEDTIME (route: oral) Med Classific ation: Electroly te Balance-N utritiona l Products gabapentin 400 mg capsule 02-08 00:00: 00 04-25 23:59 :00 No [id number] 1 capsule 2 TIMES DAILY 1 capsule 2 TIMES DAILY (route: oral) Med Classific ation: Central Nervous System Agents lactulose 20 gram/30 mL oral solution 02-01 00:00: 00 04-25 23:59 :00 No [id number] 45 mL 3 TIMES DAILY 45 mL 3 TIMES DAILY (route: oral) Med Classific ation: Gastroint estinal Therapy Agents Tresiba FlexTouch U-100 insulin 100 unit/mL (3 mL) subcutaneou s pen 02-01 00:00: 00 08-01 23:59 :00 No [id number] 6 unit BEDTIME 6 unit BEDTIME (route: subcutaneo us) Med Classific ation: Endocrine bumetanide 1 mg tablet 02-17 00:00: 00 02-21 23:59 :00 No [id number] 2 tablet DAILY 2 tablet DAILY (route: oral) Med Classific ation: Cardiovas cular Therapy Agents bumetanide 1 mg tablet 02-17 00:00: 00 03-01 23:59 :00 No [id number] 1 tablet 2 TIMES DAILY 1 tablet 2 TIMES DAILY (route: oral) Med Classific ation: Cardiovas cular Therapy Agents spironolact one 25 mg tablet 03-01 00:00: 00 04-25 00:00 :00 No [id number] 2 tablet DAILY 2 tablet DAILY (route: oral) Med Classific ation: Cardiovas cular Therapy Agents torsemide 20 mg tablet 03-01 00:00: 00 04-25 00:00 :00 No [id number] 2 tablet DAILY 2 tablet DAILY (route: oral) Med Classific ation: Cardiovas cular Therapy Agents midodrine 10 mg tablet 03-01 00:00: 00 08-01 23:59 :00 No [id number] 1 tablet DIRECTED 1 tablet DIRECTED (route: oral) Med Classific ation: Cardiovas cular Therapy Agents Humulin R Regular U-100 Insulin 100 unit/mL injection solution 03-21 00:00: 00 04-25 00:00 :00 No [id number] 20 unit 3 TIMES DAILY 20 unit 3 TIMES DAILY (route: injection) Med Classific ation: Endocrine Basaglar KwikPen U-100 Insulin 100 unit/mL (3 mL) [facility] 04-25 00:00: 00 08-01 23:59 :00 No [id number] 1 unit 3 TIMES DAILY 1 unit 3 TIMES DAILY (route: subcutaneo us) Med Classific ation: Endocrine bumetanide 1 mg tablet 04-25 00:00: 00 08-01 23:59 :00 No [id number] 1 tablet DAILY 1 tablet DAILY (route: oral) Med Classific ation: Cardiovas cular Therapy Agents spironolact one 25 mg tablet 04-25 00:00: 00 08-01 23:59 :00 No [id number] 1 tablet DAILY 1 tablet DAILY (route: oral) Med Classific ation: Cardiovas cular Therapy Agents atorvastati n 80 mg tablet 04-26 00:00: 00 08-01 23:59 :00 No [id number] 0.5 tablet BEDTIME 0.5 tablet BEDTIME (route: oral) Med Classific ation: Cardiovas cular Therapy Agents carvedilol 6.25 mg tablet 04-26 00:00: 00 08-01 23:59 :00 No [id number] 1 tablet 2 TIMES DAILY 1 tablet 2 TIMES DAILY (route: oral) Med Classific ation: Cardiovas cular Therapy Agents alprazolam 0.5 mg tablet 04-26 00:00: 00 08-01 23:59 :00 No [id number] 1 tablet 2 TIMES DAILY 1 tablet 2 TIMES DAILY (route: oral) Med Classific ation: Central Nervous System Agents gabapentin 300 mg capsule 04-26 00:00: 00 08-01 23:59 :00 No [id number] 1 capsule 2 TIMES DAILY 1 capsule 2 TIMES DAILY (route: oral) Med Classific ation: Central Nervous System Agents cyanocobala min (vit B-12) 500 mcg tablet 04-26 00:00: 00 08-01 23:59 :00 No [id number] 2 tablet BEDTIME 2 tablet BEDTIME (route: oral) Med Classific ation: Electroly te Balance-N utritiona l Products lactulose 10 gram/15 mL oral solution 04-26 00:00: 00 08-01 23:59 :00 No [id number] 30 mL 2 TIMES DAILY 30 mL [...] CARE WILL BE ESTABLISHED THAT MEETS PATIENT'S LONG-TERM NEEDS AND INCLUDES PATIENT GOAL FOR HOME [...] End Date/Time Encounter Type Admission Type Attending [facility] Care Facility Care Department Encounter ID Discharge Date Discharge Status Discharge Condition Discharge Reason Percent Goals Met 2023-11-13 00:00:00 2024-05-10 00:00:00 [facility] RAP[facility] [id number] 2024-05-10 00:00:00 DISCHARGED /TRANSFERR ED TO A [facility] FOR INPATIENT CARE REMAINS INPATIENT AT TIME OF DISCHARGE REMAINS IN INPATIENT FACILITY AT END OF CERT PERIOD 75.76
--- OUTSIDE RECORDS SUMMARY | 2024-09-26 08:45 | XMS_ITS | Continuity of Care Document ---
Author Organization [facility] Address [address] [address] Phone Care Team Providers Care Franchise Development Manager Name Role Phone NAMITA Jacobson RD, Shauna Unavailable Unavail able Advance Directives Directive Yes / No Effective Date File Name No Information Encounters Encounter Description Practice Location Reason(s) For Visit Diagnoses Date Provider Providers Copied on Encounter [facility], [address] [address], [place], [place], [id number], [place] tel:[phone] [facility] No Information Indira Villatoro. [address] [place], [address]. tel:[phone] Family History Family Member Type Diagnosis Age [...]
[2024-09-26 10:47] LABS: MANUAL DIFF FLAG NO
[2024-09-26 10:55] LABS: Basophils Absolute Auto 0.1 X10*3/uL (0.0-0.2); Eosinophils Absolute Auto 0.2 X10*3/uL (0.0-0.4); Eosinophils Percent Auto 3.2 % (0-4); Hematocrit 24.3 % (42.0-52.0); Hemoglobin 7.4 g/dl (14.0-18.0); Imm Gran Abs Auto 0.03 X10*3/uL (0.00-0.03); Imm Gran Pct Auto 0.5 % (0.0-0.4); Lymphocytes Absolute Auto 0.4 X10*3/uL (1.2-4.9); Lymphocytes Percent Auto 6.8 % (20-40); Mean Corpuscular HGB Conc 30.5 g/dl (31.0-36.0); Mean Corpuscular Hemoglobin 27.5 pg (27.0-33.0); Mean Corpuscular Volume 90.3 fL (80.0-98.0); Mean Platelet Volume 11.7 fL (9.4-12.4); Monocytes Absolute Auto 0.8 X10*3/uL (0.1-1.2); Monocytes Percent Auto 13.6 % (2-11); Neutrophils Absolute Auto 4.4 x10*3/uL (2.0-8.3); Neutrophils Percent Auto 74.9 % (45-73); Platelet Count 116 X10*3/uL (160-400); Red Blood Count 2.69 X10*6/uL (4.60-5.80); Red Cell Distribution Width 16.1 % (11.0-16.0); White Blood Count 5.9 X10*3/uL (4.8-10.8)
== END 2024-09-26 08:30 | disposition home or self-care (01) ==
LOC: HO.LHD 08:29
PROVIDERS: Visit Provider Internal Medicine
DX: D64.9 Anemia, unspecified (principal)
CPT/HCPCS: 36415; 85025

== ENCOUNTER 2024-09-27 08:28 | Emergency (ER) | payer MEDICARE, SELFPAY ==
[2024-09-27] VITALS (14 sets, daily range): BP systolic 82–121; BP diastolic 35–59; PULSE 65–86; RESP 14–19; TEMP 36.7–38.2; O2SAT 92–100; BMI 26.4
--- NOTE | ~2024-09-27 | CT_ITS ---
EXAMINATION: CT HEAD WITHOUT CONTRAST CLINICAL INFORMATION: Fall. COMPARISON: CT brain 04/14/2024 TECHNIQUE: Contiguous axial imaging was performed from the skull base to vertex without intravenous administration of contrast. This CT examination was performed using dose optimization techniques as appropriate, variously including the following: *Automated exposure control *Adjustment of mA and/or kV according to patient size (this includes techniques or standardized protocols for targeted exams where dose is matched to indication/reason for exam; i.e. extremities or head) *Use of iterative reconstruction technique FINDINGS: There is 1.4 cm calcified extra-axial left frontal meningioma, stable. No acute infarction evolution. There is no extra-axial intra-axial hematoma, edema or midline shift. There is moderate periventricular hypodensity in both cerebral hemispheres without mass effect suggestive of chronic small vessel ischemic changes. The lateral ventricles are moderately enlarged but symmetrical. No abnormality seen in the posterior fossa. Bone windows reveal no calvarial abnormality. Bilateral paranasal sinuses and mastoid air cells are well-aerated. There is no scalp soft tissue abnormality seen. CT/CT head/brain wo IV con IMPRESSION: No acute intracranial process seen. 1.4 cm extra-axial left frontal calcified meningioma stable compared to last study 04/14/2024. Mild cerebral volume loss. Electronically signed by: Scar Miller MD 09/27/2024 09:58 AM EST
--- NOTE | ~2024-09-27 | CT_ITS ---
EXAMINATION: CT CERVICAL SPINE WITHOUT CONTRAST CLINICAL INFORMATION: Fall. Pain. COMPARISON: CT cervical spine 04/14/2024. TECHNIQUE: Axial 3 mm thin and reformatted 2 mm thin sagittal and coronal images of cervical spine were obtained. This CT examination was performed using dose optimization techniques as appropriate, variously including the following: *Automated exposure control *Adjustment of mA and/or kV according to patient size (this includes techniques or standardized protocols for targeted exams where dose is matched to indication/reason for exam; i.e. extremities or head) *Use of iterative reconstruction technique DLP 1052. FINDINGS: There is mild reversal of cervical lordosis. There is loss of C5 vertebral heights and loss of C5-6 disc space. Rest of the vertebral heights and alignment are normal. There is mild left C2-3 facet joint arthropathy and hypertrophy. No evidence of acute fracture, dislocation or lytic process. There is no evidence of disc bulge, herniation or spinal canal stenosis. The central tracheal airway is widely patent. Bilateral parotid and submandibular glands are symmetrical and stable. Thyroid lobes are symmetrical and normal. Lung apices are clear. CT/CT cervical spine wo IV con IMPRESSION: No acute fracture or subluxation seen in cervical spine. Reversal of cervical lordosis and loss of C5-6 height and anterior wedging of the C5 vertebra is stable and unchanged to 04/14/2024 and exam prior to that 04/06/2024 Fleischner guidelines were followed. Electronically signed by: Scar Miller MD 09/27/2024 11:[address] [facility]
--- NOTE | ~2024-09-27 | CT_ITS ---
EXAMINATION: CT ABDOMEN AND PELVIS WITHOUT CONTRAST CLINICAL INFORMATION: Anemia, fall and hypotension COMPARISON: None available. TECHNIQUE: Multidetector volumetric imaging was performed from the superior aspect of the liver through the pubic symphysis. Sagittal and coronal reformatted images were obtained on the technologist's workstation. DLP: 661 mGy/cm. This CT examination was performed using dose optimization techniques as appropriate, variously including the following: *Automated exposure control *Adjustment of mA and/or kV according to patient size (this includes techniques or standardized protocols for targeted exams where dose is matched to indication/reason for exam; i.e. extremities or head) *Use of iterative reconstruction technique. FINDINGS: LUNG BASES: There is bibasilar posterior pleural thickening/tiny effusion and atelectasis. Heart size is enlarged with aortic valve stent in place and pacer electrodes in right atrium and right ventricle. LIVER, GALLBLADDER, AND BILIARY TREE: The liver is normal in size, lobulated shape, and normal attenuation. No focal hepatic lesion or biliary ductal dilatation is present. There is perihepatic ascites. There are multiple radiopaque gallstones without wall thickening. No pericholecystic inflammatory changes. PANCREAS: Unremarkable. SPLEEN: There is moderate splenomegaly measuring 19 cm in length.. ADRENAL GLANDS: Unremarkable. KIDNEYS AND URETERS: The kidneys are normal in size, shape, and attenuation. No hydronephrosis, hydroureter, or calculi seen. No perinephric stranding. BLADDER: Unremarkable. GASTROINTESTINAL TRACT: The small and large bowel are unremarkable. The appendix is nonvisualized. There is diffuse ascites ABDOMINAL WALL: No significant hernia is appreciated. LYMPH NODES: Normal. VASCULAR: The abdominal aorta is normal caliber with mild atherosclerotic calcification but no aneurysm. There is extensive varicose veins in splenorenal space, splenic hilum and left retroperitoneum upper. PELVIC VISCERA: There are jignesh in the prostate bed likely from previous prostate resection. No abnormal pelvic lymph nodes seen.. No pelvic mass or hernia seen. OSSEOUS STRUCTURES: Grade one retrolisthesis L5-S1 with degenerative disc changes L5-S1 and L4-5 disc levels. There is L4-L5 interspinous hardware. CT/CT abdomen pelvis wo IV con IMPRESSION: Cirrhosis, ascites and extensive varices as described above. Cholecystitis. No retroperitoneal or abdominal wall hematoma or mass seen. Bilateral small pleural effusion/pleural thickening and bibasilar atelectasis. Fleischner guidelines were followed. Electronically signed by: Scar Miller MD 09/27/2024 04:54 PM JAMES
--- NOTE | ~2024-09-27 | XR_ITS ---
EXAMINATION: XR LUMBOSACRAL SPINE CLINICAL INFORMATION: Fall and back pain. COMPARISON: X-ray dated April 14, 2024 TECHNIQUE: Three views of the lumbosacral spine. FINDINGS: Status post inter posterior spinous processes spacer, L4-5. Multilevel marginal osteophyte formation and endplate sclerosis and decreased intervertebral disc height more conspicuous at L5-S1. No acute cortical disruption. No gross malalignment. No lytic or blastic lesions. Osteopenia versus osteoporosis. Vascular calcifications, abdominal aorta and iliac arteries. Sclerosis and the sacroiliac joints. XR/XR lumbar spine 2-3V IMPRESSION: Multilevel thoracolumbar spondylosis more conspicuous at L5-S1 and to a lesser extent L4-5 without acute fracture or gross traumatic-related listhesis. Status post inter posterior spinous processes spacer fusion. Atherosclerosis disease. Electronically signed by: Dimitrios Kwon MD 09/27/2024 10:14 AM JAMES
--- NOTE | ~2024-09-27 | XR_ITS ---
EXAMINATION: XR CHEST CLINICAL INFORMATION: Fall COMPARISON: 04/14/2024, 01/25/2024. TECHNIQUE: Frontal view of the chest was obtained. FINDINGS: Patient is left rotated, mildly limiting evaluation. Left pacemaker device in place with leads extending into the right atrium and right ventricle. Cardiomegaly redemonstrated. TAVR in place. Left coronary stent noted. Aorta is calcified. Hilar silhouettes appear normal. There are low lung volumes with mild bronchovascular crowding bilaterally. Within these confines, the lungs appear clear. There are no effusions. There is no pneumothorax. Osseous structures appear intact without definite fracture seen. XR/XR chest 1V IMPRESSION: 1. Dual-lead pacemaker, Cardiomegaly and low lung volumes. No acute findings in the thorax. Electronically signed by: Waqas Nunez MD 09/27/2024 10:06 AM JAMES
--- NOTE | 2024-09-27 08:52 | ECG_ITS ---
Test Reason : fall Blood Pressure : */* mmHG Vent. Rate : 67 BPM Atrial Rate : 78 BPM P-R Int : 240 ms QRS Dur : 106 ms QT Int : 440 ms P-R-T Axes : 62 -48 117 degrees QTcB Int : 464 ms Atrial-sensed ventricular-paced rhythm with prolonged AV conduction with occasional AV dual-paced complexes Abnormal ECG When compared with ECG of 01-Sep-2024 05:36, Vent. rate has decreased by 6 bpm Referred By: Jesse Palm Electronically Signed By: Sy Vickers
--- NOTE | 2024-09-27 09:15 | ED_ITS ---
HPI - Fall General Chief Complaint: Fall Stated Complaint: FOUND ON FLOOR,MULTI FALLS PER EMS Time Seen by Provider: 09/27/24 08:51 Source: patient and EMS Mode of arrival: EMS Limitations: no limitations History of Present Illness ED Provider: DR. Palm HPI Narrative: 79-year-old male lives home with his mostly independently was going to the bathroom this morning when his left leg gave out and patient lost control causing him fall, no LOC, no head injury, patient remained on the floor until he got EMS help to get him up, not taking AC but he takes aspirin, complaining of low back pain. No hematuria, no black stool, no blood in the stool. Patient with known history of chronic anemia had GI workup without finding underlying etiology. Related Data Home Medications ?Medication ?Instructions ?Recorded ?Confirmed lactulose 10 gram/15 mL oral 30 ml PO BID 04/14/24 09/08/24 solution insulin degludec 100 unit/mL (3 6 unit subcut BEDTIME 08/17/24 09/08/24 mL) subcutaneous pen (Tresiba FlexTouch U-100 insulin) Previous Rx's ?Medication ?Instructions ?Recorded blood pressure test kit-large #1 ea 11/21/21 flash glucose scanning reader #1 ea 10/03/22 (FreeStyle Marleni 14 Day [place]) flash glucose sensor (FreeStyle #2 ea 10/03/22 Marleni 14 Day Sensor kit) lancets 28 gauge (FreeStyle #100 ea 10/21/23 Lancets) blood-glucose meter (FreeStyle #1 ea 03/09/24 Lite Meter kit) pen needle, diabetic 32 gauge x #150 ea 03/09/24 (BD Gifty 2nd Gen Pen Needle) pen needle, diabetic 32 gauge x #50 ea 03/09/24 (BD Ultra-Fine Gifty Pen Needle) blood-glucose meter (Prodigy #1 ea 03/22/24 Pocket Meter kit) insulin lispro 100 unit/mL 1 sliding scale dose subcut TID 30 05/23/24 subcutaneous pen (Admelog SoloStar days #15 mL U-100 Insulin lispro) finasteride 5 mg tablet (Proscar) 5 mg PO DAILY 90 days #90 tabs 06/06/24 dulaglutide 0.75 mg/0.5 mL 0.75 mg (0.5 mL) subcut MO #2 mL 06/13/24 subcutaneous pen injector ([facility]) carvedilol 6.25 mg tablet 6.25 mg PO BID 30 days #60 tabs 06/30/24 alprazolam 0.5 mg tablet 0.5 mg PO BID PRN Anxiety 30 days 07/25/24 #60 tabs rifaximin 550 mg tablet 550 mg PO BID 90 days #180 tabs 08/23/24 blood sugar diagnostic (FreeStyle #100 ea 08/26/24 Test strips) midodrine 10 mg tablet 10 mg PO TID hypotension 30 days 08/26/24 #90 tabs blood sugar diagnostic (Prodigy No #50 ea 08/29/24 Coding strips) atorvastatin 80 mg tablet 40 mg (1/2 x 80 mg) PO BEDTIME #90 08/30/24 tabs diclofenac sodium 1 % topical gel 2 g topical QID #100 grams 09/05/24 bumetanide 1 mg tablet 1 mg PO BID 30 days #60 tabs 09/15/24 cyanocobalamin (vitamin B-12) 500 1,000 mcg (2 x 500 mcg) PO BEDTIME 09/15/24 mcg tablet #90 tabs dapagliflozin propanediol 10 mg 10 mg PO DAILY 30 days #30 tabs 09/15/24 tablet (Farxiga) ezetimibe 10 mg tablet (Zetia) 10 mg PO DAILY #30 tabs 09/15/24 ferrous sulfate 325 mg (65 mg 325 mg PO DAILY #90 tabs 09/15/24 iron) tablet,delayed release pantoprazole 40 mg tablet,delayed 40 mg PO DAILY #30 tabs 09/15/24 release spironolactone 25 mg tablet 25 mg PO DAILY 30 days #30 tabs 09/15/24 tamsulosin 0.4 mg capsule 0.4 mg PO DAILY 90 days #90 caps 09/15/24 gabapentin 300 mg capsule 300 mg PO BID 30 days #60 caps 09/19/24 Allergies Allergy/AdvReac Type Severity Reaction Status Date / Time KARL Inhibitors Allergy Severe Angioedema Verified 09/27/24 08:53 dextran 40 [DEXTRAN 40] Allergy Intermediate tachycardia Verified 09/27/24 08:53 latex [LATEX] Allergy Mild BLISTERS Verified 09/27/24 08:53 lisinopril [From Zestril] Allergy Mild Unknown Verified 09/27/24 08:53 Iodinated Contrast Media Allergy Unknown UNKNOWN Verified 09/27/24 08:53 [CONTRAST,IV] Review of Systems 2 Review of Systems: All other systems are reviewed and are negative Constitutional: Reports as per HPI and Reports no additional constitutional complaints Eyes: Reports as per HPI and Reports no additional eye complaints Reports system reviewed and no additional complaints, except as documented Cardiovascular: Reports as per HPI and Reports no additional cardiovascular complaints Respiratory: Reports as per HPI and Reports no additional respiratory complaints Gastrointestinal: Reports as per HPI and Reports no additional gastrointestinal complaints Genitourinary: Reports no additional female genitourinary complaints Musculoskeletal: Reports no additional musculoskeletal complaints Skin/Breast: Reports system reviewed and no additional complaints, except as docu Psychiatric: Reports no additional psychiatric complaints Endocrine: Reports no additional endocrine complaints Hematologic/Lymphatic: Reports no additional hematologic/lymphatic complaints Allergic/Immunologic: Reports no additional allergic/immunologic complaints Reports system reviewed and no additional complaints, except as documented and Reports Abnormal speech present [facility] Past Medical History Medical History CKD stage 4 due to type 2 diabetes mellitus Heart failure Cirrhosis of liver without ascites Cognitive impairment DMII (diabetes mellitus, type 2) Hyperglycemia Symptomatic anemia Difficulty walking Anemia 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 Streptococcal bacteremia Fracture of left humerus History of prostate cancer Acute lower gastrointestinal bleeding COVID-19 vaccine series completed Hypertension Dyslipidemia Diabetic nephropathy associated with type 2 diabetes mellitus Diabetic 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 associated with type 2 diabetes mellitus 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 Diabetes type 2, uncontrolled Varices of esophagus determined by endoscopy Esophageal varices without bleeding KOEHLER (dyspnea on exertion) Chronic fatigue Iron deficiency anemia CAD (coronary artery disease) ANUJA on CPAP Prostate cancer Spinal stenosis On beta kayy at home IBS (irritable colon syndrome) Aortic stenosis HTN (hypertension) Polyneuropathy GERD (gastroesophageal reflux disease) Surgical History S/P infectious endocarditis H/O cataract extraction Hx of endoscopy History of colonoscopy Hx of esophagogastroduodenoscopy Hx of colonoscopy History of surgery History of transurethral resection of prostate History of surgery History of heart artery stent Family History Family History Father CVD (cardiovascular disease) Past heart attack Mother CVD (cardiovascular disease) Brain cancer Heart problem Daughter Breast cancer Sister Breast cancer Son Alive and well Family/Other Myocardial infarction Liver cancer Social History Social History Household Members: Spouse Household Members Other:: Myesha marie Housing: House Are you a primary lawn caretaker to a significant other at home: No Do you presently have visiting nurse or other home services: Yes Alcohol intake: never Patient Tobacco Use Status: Never used Tobacco e-Cigarette/Vaping Use: Never Used Second Hand Smoke Exposure: No Advance Directives: Yes Advance Directives on File: Yes Advance Directives Date on File: 08/31/23 Do you have a plan to hurt others: No Plan service: No Current occupational status: retired Cognitive needs: No Hearing needs: No Vision needs: Yes Physical Exam 2 Vital Signs: Vital Signs: Last Vital Signs Temp 99.4 F 09/27/24 14:09 Pulse 68 09/27/24 15:44 Resp 17 09/27/24 15:44 BP 93/39 L 09/27/24 15:48 Pulse Ox 99 09/27/24 15:44 O2 Del Method Room Air 09/27/24 15:44 O2 Flow Rate 2 09/27/24 14:46 BMI result Body Mass Index 26.4 Vital signs have been reviewed and appear to be correct. Blood pressure elevated. Heart rate normal. Respiratory rate normal. Temperature normal. Oxygen saturation normal. Appearance: Alert. Oriented X3. No acute distress. Head: Normal external exam. Normocephalic. Atraumatic. No Ochoa signs noted. No raccoon eyes noted Eyes: PERRLA. EOMI. Conjunctiva and sclera normal. Eyelids normal. ENT: TM's Normal. Pharynx normal. Uvula midline. Moist mucous membranes. No trismus noted. No drooling noted. No muffled voice noted. Neck: Normal inspection. Neck supple. FROM. No adenopathy. Thyroid Normal. No meningeal signs. No neck mass noted. CVS: Normal heart rate and rhythm. Heart sound normal. No murmurs noted. Pulses normal throughout. Respiratory: No respiratory distress. Painless inspiration. Breath sounds normal. No wheezes/rales/rhonchi noted. Chest nontender. No accessory muscle usage noted or decreased air movement noted. Abdomen: Soft and nontender. Bowel sounds normal in all 4 quadrants. No distention noted. No organomegaly noted. No visible injury noted. Back: No CVA tenderness. Full range of motion noted. Skin: Skin warm and dry. Normal skin color. Normal skin turgor. No rashes/lesions/lacerations noted. Extremities: No lower extremity edema. Extremities exhibit normal range of motion. Extremities nontender. Neuro: Oriented X 3. Cranial nerve exam: II-XII are grossly intact No motor deficit. No sensory deficit. Reflexes normal. Course Reevaluation(s) Reevaluation #1: Acute chronic anemia will transfuse the patient RBCs. Mechanical fall with no acute injury. Consider PT/cm Time: 11:42 Reevaluation #2: Was notified by the nurse that patient had a minimal hypotension especially when he sleep deeply once patient is awake blood pressure is normalized, patient is getting fluids and 1 unit of RBCs for anemia, patient otherwise declined headache, CP, abdominal pain, or active bleeding. Will continue monitoring blood pressure, will consider CT abdomen and pelvis rule out intra-abdominal bleed. patient will remain in the ED for PT/cm evaluation. signed out to Dr. Muller Time: 16:02 Medications Administered Generic Name Dose Route Start Last Admin Trade Name Freq PRN Reason Stop Dose Admin Sodium Chloride 1,000 mls @ 500 mls/hr 09/27/24 14:52 09/27/24 15:46 Ns IV 09/27/24 16:51 500 mls/hr .Q2H ONE Administration Discontinued Medications Generic Name Dose Route Start Last Admin Trade Name Freq PRN Reason Stop Dose Admin Acetaminophen 650 mg 09/27/24 12:36 09/27/24 12:42 Acetaminophen 325 Mg Tablet PO 09/27/24 12:37 650 mg ONCE ONE Administration Medical Decision Making Differential Diagnosis Differential Diagnoses: The differential diagnosis associated with the presentation includes (Severe anemia, electrolyte derangement, syncope, mechanical fall, intracranial bleed, lumbar spine fracture, cervical spine injury,) Admission/Observation Consideration of admission/observation: Escalation of care including admission/observation considered Lab Data MDM Lab Attestation statement: I reviewed the patient's lab results. 09/27/24 09:17 09/27/24 09:17 Labs: Lab Results 09/27/24 09/27/24 09/27/24 Range/Units 09:17 09:17 09:27 WBC 7.2 (4.8-10.8) X10*3/uL RBC 2.50 L (4.60-5.80) X10*6/uL Hgb 6.9 L* (14.0-18.0) g/dl Hct 22.2 L (42.0-52.0) % MCV 88.8 (80.0-98.0) fL MCH 27.6 (27.0-33.0) pg MCHC 31.1 (31.0-36.0) g/dl RDW 15.9 (11.0-16.0) % Plt Count 112 L (160-400) X10*3/uL MPV 11.1 (9.4-12.4) fL Immature Gran % (Auto) 0.4 (0.0-0.4) % Neut % (Auto) 82.3 H (45-73) % Lymph % (Auto) 5.4 L (20-40) % Archer % (Auto) 11.0 (2-11) % Eos % (Auto) 0.3 (0-4) % Baso % (Auto) 0.6 (0-2) % Lymph # (Auto) 0.4 L (1.2-4.9) X10*3/uL Archer # (Auto) 0.8 (0.1-1.2) X10*3/uL Eos # (Auto) 0.0 (0.0-0.4) X10*3/uL Baso # (Auto) 0.0 (0.0-0.2) X10*3/uL Abs Immat Gran (auto) 0.03 (0.00-0.03) X10*3/uL Absolute Neuts (auto) 5.9 (2.0-8.3) x10*3/uL Absolute Nucleated RBC 0.000 (0.0-0.012) X10*3/uL Nucleated RBC % (auto) 0.0 (0.0-0.2) /100WBC Sodium 134 L (135-145) mmol/L Potassium 4.3 D (3.3-5.1) mmol/L Chloride 107 (96-108) mmol/L Carbon Dioxide 21 L (22-29) mmol/L Anion Gap 10 L (12-20) BUN 60 H (9-16) mg/dL Creatinine 1.95 H (0.5-1.4) mg/dL Estim Creat Clear Calc 29.7 Estimated GFR 33 POC Glucose (60-115) mg/dL Random Glucose 162 H (60-115) mg/dL Lactic Acid 1.7 (0.5-2.0) mmol/L Calcium 7.6 L (8.4-10.2) mg/dL Total Bilirubin 1.4 H (0.0-1.0) mg/dL Direct Bilirubin 0.7 H (0.0-0.5) mg/dL AST 35 (5-37) U/L ALT 23 (0-40) U/L Alkaline Phosphatase 223 H (39-117) U/L Total Creatine Kinase 98 100 (38-174) U/L Troponin I High Sens 17.1 (<3.5-35.0) ng/L B-Natriuretic Peptide 928 H (<100) pg/mL Total Protein 5.8 L (6.5-8.0) g/dL Albumin 2.5 L (3.5-5.0) g/dL Lipase 27 (8-78) U/L Urine Color Urine Appearance Urine pH (5.0-9.0) Ur Specific Cisco (1.005-1.025) Urine Protein (Neg-Trace) mg/dL Urine Glucose (UA) (Negative) mg/dL Urine Ketones (Negative) mg/dL Urine Blood (Negative) Urine Nitrite (Negative) Ur Leukocyte Esterase (Negative) Urine RBC (0-2) /HPF Urine WBC (0-5) /HPF Ur Squamous Epith Cells (0-2) /HPF Urine Bacteria (None Seen) Hyaline Casts (0-2) /LPF Urine Yeast Influenza Type A (PCR) NEGATIVE (Negative) Influenza Type B (PCR) NEGATIVE (Negative) RSV RNA Qual (PCR) NEGATIVE (Negative) SARS-CoV-2 RNA (RT-PCR) NEGATIVE (Negative) Blood Type Antibody Screen Crossmatch 09/27/24 09/27/24 09/27/24 Range/Units 10:38 12:29 13:28 WBC (4.8-10.8) X10*3/uL RBC (4.60-5.80) X10*6/uL Hgb (14.0-18.0) g/dl Hct (42.0-52.0) % MCV (80.0-98.0) fL MCH (27.0-33.0) pg MCHC (31.0-36.0) g/dl RDW (11.0-16.0) % Plt Count (160-400) X10*3/uL MPV (9.4-12.4) fL Immature Gran % (Auto) (0.0-0.4) % Neut % (Auto) (45-73) % Lymph % (Auto) (20-40) % Archer % (Auto) (2-11) % Eos % (Auto) (0-4) % Baso % (Auto) (0-2) % Lymph # (Auto) (1.2-4.9) X10*3/uL Archer # (Auto) (0.1-1.2) X10*3/uL Eos # (Auto) (0.0-0.4) X10*3/uL Baso # (Auto) (0.0-0.2) X10*3/uL Abs Immat Gran (auto) (0.00-0.03) X10*3/uL Absolute Neuts (auto) (2.0-8.3) x10*3/uL Absolute Nucleated RBC (0.0-0.012) X10*3/uL Nucleated RBC % (auto) (0.0-0.2) /100WBC Sodium (135-145) mmol/L Potassium (3.3-5.1) mmol/L Chloride (96-108) mmol/L Carbon Dioxide (22-29) mmol/L Anion Gap (12-20) BUN (9-16) mg/dL Creatinine (0.5-1.4) mg/dL Estim Creat Clear Calc Estimated GFR POC Glucose 161 H (60-115) mg/dL Random Glucose (60-115) mg/dL Lactic Acid (0.5-2.0) mmol/L Calcium (8.4-10.2) mg/dL Total Bilirubin (0.0-1.0) mg/dL Direct Bilirubin (0.0-0.5) mg/dL AST (5-37) U/L ALT (0-40) U/L Alkaline Phosphatase (39-117) U/L Total Creatine Kinase (38-174) U/L Troponin I High Sens (<3.5-35.0) ng/L B-Natriuretic Peptide (<100) pg/mL Total Protein (6.5-8.0) g/dL Albumin (3.5-5.0) g/dL Lipase (8-78) U/L Urine Color Yellow Urine Appearance Clear Urine pH 5.5 (5.0-9.0) Ur Specific Cisco 1.015 (1.005-1.025) Urine Protein Negative (Neg-Trace) mg/dL Urine Glucose (UA) >=1000 H (Negative) mg/dL Urine Ketones Negative (Negative) mg/dL Urine Blood Negative (Negative) Urine Nitrite Negative (Negative) Ur Leukocyte Esterase Negative (Negative) Urine RBC 0-2 (0-2) /HPF Urine WBC 0-5 (0-5) /HPF Ur Squamous Epith Cells 0-2 (0-2) /HPF Urine Bacteria Trace (None Seen) Hyaline Casts 0-2 (0-2) /LPF Urine Yeast Present Influenza Type A (PCR) (Negative) Influenza Type B (PCR) (Negative) RSV RNA Qual (PCR) (Negative) SARS-CoV-2 RNA (RT-PCR) (Negative) Blood Type A Positive Antibody Screen NEGATIVE Crossmatch See Detail Independent Interpretation I performed an independent interpretation of an: Plain X-Ray (Chest/lumbar spine x-ray:Multilevel thoracolumbar spondylosis more conspicuous at L5-S1 and to a lesser extent L4-5 without acute fracture or gross traumatic-related listhesis. Status post inter posterior spinous processes spacer fusion. Atherosclerosis disease. ) and CT Scan (Head/C-spine: No acute pathology.) Radiology Impression Discussion of test interpretation with radiology: I have reviewed the radiologist's reading. Discharge Plan Discharge Clinical Impression: Anemia, Hypotension Patient Disposition: Still a Patient Prescriptions: No Action (DME) FreeStyle Marleni 14 Day [place] Misc See Rx Instructions .Route Qty: 1 0RF Rx Instructions: As directed (DME) FreeStyle Marleni 14 Day Sensor Kit See Rx Instructions .Route Qty: 2 2RF Rx Instructions: As directed (DME) blood-glucose meter [FreeStyle Lite Meter] Kit See Rx Instructions .Route Qty: 1 0RF Rx Instructions: As directed (DME) pen needle, diabetic [BD Gifty 2nd Gen Pen Needle] 32 gauge x 5/32 needle See Rx Instructions .MEDSUPPLY Qty: 150 5RF Rx Instructions: 4 times a day (DME) pen needle, diabetic [BD Ultra-Fine Gifty Pen Needle] 32 gauge x 5/32 needle See Rx Instructions .ROUTE .MEDSUPPLY Qty: 50 3RF Rx Instructions: As directed (DME) blood-glucose meter [Prodigy Pocket Meter] Kit See Rx Instructions .Route Qty: 1 0RF Rx Instructions: Testing three times per day insulin lispro [Admelog SoloStar U-100 Insulin] 100 unit/mL insulin pen 1 sliding scale dose subcut TID 30 Days Qty: 15 6RF Rx Instructions: BG <111 0 units, 111-150 - 0 units, 151-200 2 units, 201-250 4 units, 251-300 6 units, 301-350 8 units, >350 10 units finasteride [Proscar] 5 mg tablet 5 mg PO DAILY 90 Days Qty: 90 1RF Trulicity 0.75 mg/0.5 mL pen injector 0.75 mg SUBCUT MO Qty: 2 3RF carvedilol 6.25 mg tablet 6.25 mg PO BID 30 Days Qty: 60 3RF Rx Instructions: must administer with a meal/food alprazolam 0.5 mg tablet 0.5 mg PO BID PRN (Reason: Anxiety) 30 Days Qty: 60 1RF rifaximin 550 mg tablet 550 mg PO BID 90 Days Qty: 180 1RF midodrine 10 mg tablet 10 mg PO TID 30 Days Qty: 90 0RF Rx Instructions: do not give last dose of day after 6PM or within 4 hrs of bedtime (DME) FreeStyle Test Strip See Rx Instructions .Route Qty: 100 3RF Rx Instructions: three times per day (DME) Prodigy No Coding Strip See Rx Instructions .Route Qty: 50 6RF Rx Instructions: Test 3 times a day atorvastatin 80 mg tablet 40 mg PO BEDTIME Qty: 90 0RF diclofenac sodium 1 % gel 2 g topical QID Qty: 100 0RF Rx Instructions: apply to single elbow, wrist or hand; for hand includes palm/fingers/back of hand tamsulosin 0.4 mg capsule 0.4 mg PO DAILY 90 Days Qty: 90 0RF ferrous sulfate 325 mg (65 mg iron) tablet,delayed release (DR/EC) 325 mg PO DAILY Qty: 90 0RF ezetimibe [Zetia] 10 mg tablet 10 mg PO DAILY Qty: 30 0RF pantoprazole 40 mg tablet,delayed release (DR/EC) 40 mg PO DAILY Qty: 30 0RF Farxiga 10 mg tablet 10 mg PO DAILY 30 Days Qty: 30 0RF spironolactone 25 mg tablet 25 mg PO DAILY 30 Days Qty: 30 0RF cyanocobalamin (vitamin B-12) 500 mcg tablet 1,000 mcg PO BEDTIME Qty: 90 0RF bumetanide 1 mg tablet 1 mg PO BID 30 Days Qty: 60 0RF gabapentin 300 mg capsule 300 mg PO BID 30 Days Qty: 60 3RF lactulose 10 gram/15 mL solution 30 ml PO BID insulin degludec [Tresiba FlexTouch U-100] 100 unit/mL (3 mL) insulin pen 6 unit subcut BEDTIME (DME) lancets [FreeStyle Lancets] 28 gauge misc See Rx Instructions .Route Qty: 100 6RF Rx Instructions: As directed three times per day (DME) blood pressure test kit-large Kit See Rx Instructions .Route Qty: 1 0RF Rx Instructions: As directed Print Language: Divehi
[2024-09-27 09:26] LABS: MANUAL DIFF FLAG NO
[2024-09-27 09:36] LABS: Basophils Percent Auto 0.6 % (0-2); Eosinophils Percent Auto 0.3 % (0-4); Hematocrit 22.2 % (42.0-52.0); Imm Gran Abs Auto 0.03 X10*3/uL (0.00-0.03); Imm Gran Pct Auto 0.4 % (0.0-0.4); Lymphocytes Absolute Auto 0.4 X10*3/uL (1.2-4.9); Lymphocytes Percent Auto 5.4 % (20-40); Mean Corpuscular HGB Conc 31.1 g/dl (31.0-36.0); Mean Corpuscular Hemoglobin 27.6 pg (27.0-33.0); Mean Corpuscular Volume 88.8 fL (80.0-98.0); Mean Platelet Volume 11.1 fL (9.4-12.4); Monocytes Absolute Auto 0.8 X10*3/uL (0.1-1.2); Neutrophils Absolute Auto 5.9 x10*3/uL (2.0-8.3); Neutrophils Percent Auto 82.3 % (45-73); Platelet Count 112 X10*3/uL (160-400); Red Cell Distribution Width 15.9 % (11.0-16.0); White Blood Count 7.2 X10*3/uL (4.8-10.8)
[2024-09-27 09:45] LABS: Hemoglobin 6.9 g/dl (14.0-18.0)
[2024-09-27 09:55] LABS: Lactic Acid 1.7 mmol/L (0.5-2.0)
[2024-09-27 09:59] LABS: B Type Natriuretic Peptide 928 pg/mL (<100)
[2024-09-27 10:01] LABS: Troponin-I High Sensitivity 17.1 ng/L (<3.5-35.0)
[2024-09-27 10:05] LABS: Alanine Aminotransferase 23 U/L (0-40); Albumin Level 2.5 g/dL (3.5-5.0); Alkaline Phosphatase 223 U/L (39-117); Anion Gap 10 (12-20); Aspartate Amino Transferase 35 U/L (5-37); Bilirubin Direct 0.7 mg/dL (0.0-0.5); Blood Urea Nitrogen 60 mg/dL (9-16); Calcium 7.6 mg/dL (8.4-10.2); Carbon Dioxide 21 mmol/L (22-29); Chloride 107 mmol/L (96-108); Creatinine Clr Calc Pharmacy 29.7; Estimated Glomerular Filt Rate 33; Glucose Random 162 mg/dL (60-115); Lipase 27 U/L (8-78); Potassium 4.3 mmol/L (3.3-5.1); Sodium 134 mmol/L (135-145); Total Protein 5.8 g/dL (6.5-8.0)
[2024-09-27 10:07] LABS: Influenza A PCR NEGATIVE (Negative); Influenza B PCR NEGATIVE (Negative); Resp Syncy Virus RNA Qual PCR NEGATIVE (Negative); SARS COV2 PCR INHOUSE NEGATIVE (Negative)
[2024-09-27 11:42] LABS: Bilirubin Total 1.4 mg/dL (0.0-1.0)
--- NOTE | 2024-09-27 12:15 | PC.NURSE ---
Blood administration delayed d/t pt 100.7 rectal temp. made aware and ok to give blood transfusion at this time. Plan for po tylenol. All needs met at this time, call allen within reach.
--- NOTE | 2024-09-27 12:33 | PC.NURSE ---
Pt bp noted to be low, 90s/40s. MD made aware of low BP, BP cycling q15 to monitor.
[2024-09-27 12:35] LABS: Appearance Urine Clear; Color Urine Yellow; Glucose Urine UA >=1000 mg/dL (Negative); Leukocyte Esterase Urine Negative (Negative); Nitrite Urine Negative (Negative); PH 5.5 (5.0-9.0); Specific Gravity - Urine 1.015 (1.005-1.025); UMIC TRIGGER UACC YES; Urine Blood Negative (Negative); Urine Ketones Negative (Negative); Urine Protein Negative (Neg-Trace)
[2024-09-27] MEDS: Acetaminophen 325 MG TABLET 650 MG PO (12:42)
[2024-09-27 12:45] LABS: Bacteria Urine Trace (None Seen); Hyaline Casts Urine 0-2 /LPF (0-2); RBC Urine 0-2 /HPF (0-2); Squamous Epithelial Cell Urine 0-2 /HPF (0-2); WBC Urine 0-5 /HPF (0-5)
[2024-09-27 13:32] LABS: Glucose, Whole Blood 161 mg/dL (60-115)
[2024-09-27] MEDS: 0.9 % Sodium Chloride 1,000 ML 500 ML IV (15:46)
--- NOTE | 2024-09-27 15:49 | PC.NURSE ---
MD Pacheco made aware of pts low BPs with low MAP. IV fluids infusing
[2024-09-27] MEDS: Midodrine HCl 10 MG TABLET PO (16:38)
--- NOTE | 2024-09-27 17:35 | MHC.EDTECH ---
pt walked 1 asssit to bathroom with walker, tolerated well
--- NOTE | 2024-09-27 18:01 | MHC.CM.ED ---
Cm met with this patient and his , Angie at the request of Dr. Palm. He is A&Ox3. He lives with his . Uses a rollator. 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 Active with [facility]. MINILAB OPERATOR is from [facility]. Pt admits that he has not ambulated since his arrival to the ED. States PT only had him stand at the bedside and get back in bed. Pt had a blood transfusion running and low BP. PT is recommending STR. Pt refuses. Pt was recently at [facility] (08/16 d/c) and refuses STR at that time. Pt does not have a qualifying stay. Pt states he has home PT and SN from [facility]. Would like to continue with them. States his will drive him home. Pt is agreeable to a trial of ambulation. If patient cannot ambulate safely with his walker, then he would consider acute rehab only. Provider aware. Medically cleared. Pt passed his trial of ambulation. went home to get his walker and some clothes. Provider aware. Pt will discharge to home with continuation of his home services. [facility] notified via [facility].
[2024-09-28 03:58] VITALS: BP 105/45; PULSE 68; RESP 14; TEMP 37; O2SAT 93
== END 2024-09-28 01:30 | disposition home or self-care (01) ==
PROVIDERS: Emergency Provider Emergency Medicine; PCP Physician Assistant
DX: D64.9 Anemia, unspecified (principal); I95.9 Hypotension, unspecified; M54.50 Low back pain, unspecified; Z91.81 History of falling; E11.22 Type 2 diabetes mellitus with diabetic chronic kidney disease; I13.0 Hypertensive heart and chronic kidney disease with heart failure and stage 1 through stage 4 chronic kidney disease, or unspecified chronic kidney disease; N18.4 Chronic kidney disease, stage 4 (severe); I50.9 Heart failure, unspecified; E78.5 Hyperlipidemia, unspecified; Z79.4 Long term (current) use of insulin; Z79.85 Long-term (current) use of injectable non-insulin antidiabetic drugs; Z79.02 Long term (current) use of antithrombotics/antiplatelets; Z03.818 Encounter for observation for suspected exposure to other biological agents ruled out
CPT/HCPCS: 0241U; 36415; 70450; 71045; 72100; 72125; 74176; 80048; 80076; 81001; 82550; 82947; 83605; 83690; 83880; 84484; 85025; 86850; 86900; 86901; 86923; 87040; 93005; 97162; 99285; P9016

== ENCOUNTER → 2024-09-27 08:52 | Outpatient (BNV) | payer MEDICARE, SELFPAY | PROVIDERS: Emergency Provider Emergency Medicine; PCP Physician Assistant; Visit Provider Radiology Diagnostic Radiology | DX: S39.91XA Unspecified injury of abdomen, initial encounter (principal); M54.2 Cervicalgia; S09.90XA Unspecified injury of head, initial encounter; M54.9 Dorsalgia, unspecified; R91.8 Other nonspecific abnormal finding of lung field | CPT/HCPCS: 70450; 71045; 72100; 72125; 74176 ==

== ENCOUNTER → 2024-09-27 08:52 | Outpatient (BNV) | payer MEDICARE, SELFPAY | PROVIDERS: Emergency Provider Emergency Medicine; PCP Physician Assistant; Visit Provider Internal Medicine Cardiovascular Disease | DX: R94.31 Abnormal electrocardiogram [ECG] [EKG] (principal) | CPT/HCPCS: 93010 ==

== ENCOUNTER 2024-09-30 04:25 | Inpatient (IN) | payer MEDICARE, SELFPAY ==
[2024-09-30] VITALS (45 sets, daily range): BP systolic 44–119; BP diastolic 23–54; PULSE 63–89; RESP 18–25; TEMP 36.1–36.9; O2SAT 88–97; BMI 28.3
--- NOTE | ~2024-09-30 | CT_ITS ---
CLINICAL HISTORY: Please Assess Any Infection, Trauma CT abdomen and pelvis without contrast Comparison: 09/27/2024 Findings: Bibasilar consolidation. Persistent, pronounced stranding about the gallbladder with multiple gallstones. Reference coronal images 47 through 65, the gallbladder is contiguous with a fluid collection within the liver. High density within the bladder. Meier catheter present. Kidneys demonstrate no obstruction. The spleen is enlarged. Npoolawv-hm-knmvh volume ascites within the abdomen and pelvis. No acute osseous abnormality. Severe atherosclerotic disease. Impression: Again, there is a fluid collection within the liver, contiguous with the gallbladder is suggestive of a contained perforation with extension into the liver. Multiple gallstones are present. Cholecystitis again suggested. Moderate to large volume ascites. This is increased from prior. Additional incidental findings. This document has been electronically signed by: Flavio Pepe MD on 09/30/2024 21:55:58
--- NOTE | ~2024-09-30 | CT_ITS ---
CLINICAL HISTORY: s p Fall CT head without contrast Comparison: 09/27/2024 Findings: No evidence of acute territorial infarct. There is patchy low density in the periventricular and subcortical white matter. Diffuse volume loss is noted. No hydrocephalus. No hemorrhage, mass effect, intra-axial mass lesion or midline shift. Calcified meningioma again noted, left frontal region. No change. No abnormal extra-axial fluid. No calvarial fracture. Paranasal sinuses and mastoid air cells are clear. Impression: No evidence of acute process. Ischemic microangiopathy and diffuse volume loss. This document has been electronically signed by: Flavio Pepe MD on 09/30/2024 21:46:37
--- NOTE | ~2024-09-30 | CT_ITS ---
CLINICAL HISTORY: Please Assess Any Infection CT chest without contrast Comparison: None Findings: There is significant cardiomegaly. Aortic valve replacement noted. Diffuse atherosclerotic disease of the coronary arteries. No significant mediastinal adenopathy. Bibasilar consolidation, [id number]-niwdgbw-uklr-right. No significant effusion. No pneumothorax. No acute osseous abnormality. The visualized upper abdomen demonstrates a moderate volume of ascites. Impression: Cardiomegaly. Bibasilar consolidation, [id number]-xrhquli-ggbj-right. Appearance on the left may be consistent with pneumonia. Moderate volume ascites noted within the upper abdomen. This document has been electronically signed by: Flavio Pepe MD on 09/30/2024 21:52:42
--- NOTE | ~2024-09-30 | US_ITS ---
CLINICAL HISTORY: Please Assess Any Biliary Disease, Abdominal Pain, LIVER GB CBD US abdomen limited Comparison: CT/SR - CT ABDOMEN PELVIS WO IV CON - 09/27/24 16:18 EST US - US ABDOMEN LIMITED - 09/19/20 13:36 EST Findings: The visualized pancreas is normal. The aorta and inferior vena cava are normal caliber. The liver is normal in size and echotexture. There is no intrahepatic bile duct dilatation. The common duct is 4.0 mm in diameter. The gallbladder is distended with heterogeneous debris in the suggestion of multiple calculi. This appears to extend into the liver along the gallbladder fossa. The main portal vein is antegrade. No ascites. IMPRESSION: Abnormal gallbladder with distention and heterogeneous debris. There is the suggestion of this appearance of debris extends into the left hepatic lobe which is concerning for contained perforation. This document has been electronically signed by: Flavio Pepe MD on 09/30/2024 18:08:13
--- NOTE | ~2024-09-30 | XR_ITS ---
CLINICAL HISTORY: Cough 1 view chest x-ray Comparison: CR/SR - XR CHEST 1V - 09/27/24 09:55 EST Findings: Cardiomegaly with low lung volumes. Prior aortic valve replacement. Left basilar atelectasis. Dual lead pacer with left chest battery pack. No acute osseous findings. IMPRESSION: 1. Cardiomegaly with low lung volumes. Left basilar atelectasis. This document has been electronically signed by: Melyssa Bills MD on 09/30/2024 05:19:09
--- NOTE | 2024-09-30 04:40 | ECG_ITS ---
Test Reason : weakness Blood Pressure : */* mmHG Vent. Rate : 63 BPM Atrial Rate : 63 BPM P-R Int : 208 ms QRS Dur : 118 ms QT Int : 444 ms P-R-T Axes : * -39 128 degrees QTcB Int : 454 ms AV dual-paced rhythm Abnormal ECG When compared with ECG of 27-Sep-2024 09:00, Vent. rate has decreased by 4 bpm Referred By: Generic ED Physician Electronically Signed By: ZAYDA SANDY MD
[2024-09-30 04:58] LABS: Venous Blood Gas Refer to POC result
[2024-09-30 05:00] LABS: Basophils Percent Auto 0.4 % (0-2); Hematocrit 27.1 % (42.0-52.0); Hemoglobin 8.2 g/dl (14.0-18.0); Imm Gran Abs Auto 0.04 X10*3/uL (0.00-0.03); Imm Gran Pct Auto 0.4 % (0.0-0.4); Lymphocytes Absolute Auto 0.2 X10*3/uL (1.2-4.9); Lymphocytes Percent Auto 1.8 % (20-40); MANUAL DIFF FLAG NO; Mean Corpuscular HGB Conc 30.3 g/dl (31.0-36.0); Mean Corpuscular Hemoglobin 27.2 pg (27.0-33.0); Mean Platelet Volume 11.4 fL (9.4-12.4); Monocytes Absolute Auto 0.9 X10*3/uL (0.1-1.2); Monocytes Percent Auto 10.2 % (2-11); Neutrophils Absolute Auto 7.8 x10*3/uL (2.0-8.3); Neutrophils Percent Auto 87.2 % (45-73); Platelet Count 137 X10*3/uL (160-400); Red Blood Count 3.01 X10*6/uL (4.60-5.80); Red Cell Distribution Width 15.7 % (11.0-16.0)
--- NOTE | 2024-09-30 05:01 | ED.FALL ---
HPI - Fall General Chief Complaint: Fall Stated Complaint: fall, - LOC, - thinner Time Seen by Provider: 09/30/24 04:46 Source: patient and EMS Mode of arrival: EMS Limitations: no limitations History of Present Illness ED Provider: Dr. Edinson Elizabeth HPI Narrative: 79-year-old male with a history of hepatic cirrhosis complicated by esophageal varices and ascites,diabetes mellitus with 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, hypertension, pancytopenia, cirrhosis, GERD, anxiety, hypotension on midodrine, prostate cancer, aortic stenosis status post TAVR, coronary artery disease, who presents emergency department for evaluation of fall. The patient states that he was getting out of bed to urinate. He states that he reached for his walker, he slid to the floor. He denies any head injury. He denied headache or neck pain. Patient states he had a similar event 3 days prior and was seen here in the emergency department on 09/27/2023.. He states that since that fall he has been having pain in his right hip. He also states that he was sick being discharged from the emergency department but he was vague in describing how he has been ill. The patient denied fever, chills, cough, chest pain, shortness of breath, nausea, vomiting, diarrhea. Patient states that his blood pressures have been low and he takes midodrine 10 mg 3 times a day and has been compliant with his medication Related Data Home Medications ?Medication ?Instructions ?Recorded ?Confirmed lactulose 10 gram/15 mL oral 30 ml PO BID 04/14/24 09/30/24 solution insulin degludec 100 unit/mL (3 6 unit subcut BEDTIME 08/17/24 09/30/24 mL) subcutaneous pen (Tresiba FlexTouch U-100 insulin) tamsulosin 0.4 mg capsule 0.4 mg PO BEDTIME 09/30/24 09/30/24 Previous Rx's ?Medication ?Instructions ?Recorded blood pressure test kit-large #1 ea 11/21/21 flash glucose scanning reader #1 ea 10/03/22 (FreeStyle Marleni 14 Day Dearing) flash glucose sensor (FreeStyle #2 ea 10/03/22 Marleni 14 Day Sensor kit) lancets 28 gauge (FreeStyle #100 ea 10/21/23 Lancets) blood-glucose meter (FreeStyle #1 ea 03/09/24 Lite Meter kit) pen needle, diabetic 32 gauge x #150 ea 03/09/24 (BD Gifty 2nd Gen Pen Needle) pen needle, diabetic 32 gauge x #50 ea 03/09/24 (BD Ultra-Fine Gifty Pen Needle) blood-glucose meter (Prodigy #1 ea 03/22/24 Pocket Meter kit) insulin lispro 100 unit/mL 1 sliding scale dose subcut TID 30 05/23/24 subcutaneous pen (Admelog SoloSt days #15 mL U-100 Insulin lispro) finasteride 5 mg tablet (Proscar) 5 mg PO DAILY 90 days #90 tabs 06/06/24 dulaglutide 0.75 mg/0.5 mL 0.75 mg (0.5 mL) subcut MO #2 mL 06/13/24 subcutaneous pen injector ([facility]) carvedilol 6.25 mg tablet 6.25 mg PO BID 30 days #60 tabs 06/30/24 alprazolam 0.5 mg tablet 0.5 mg PO BID PRN Anxiety 30 days 07/25/24 #60 tabs rifaximin 550 mg tablet 550 mg PO BID 90 days #180 tabs 08/23/24 blood sugar diagnostic (FreeStyle #100 ea 08/26/24 Test strips) midodrine 10 mg tablet 10 mg PO TID hypotension 30 days 08/26/24 #90 tabs blood sugar diagnostic (Prodigy No #50 ea 08/29/24 Coding strips) atorvastatin 80 mg tablet 40 mg (1/2 x 80 mg) PO BEDTIME #90 08/30/24 tabs diclofenac sodium 1 % topical gel 2 g topical QID #100 grams 09/05/24 bumetanide 1 mg tablet 1 mg PO BID 30 days #60 tabs 09/15/24 cyanocobalamin (vitamin B-12) 500 1,000 mcg (2 x 500 mcg) PO BEDTIME 09/15/24 mcg tablet #90 tabs dapagliflozin propanediol 10 mg 10 mg PO DAILY 30 days #30 tabs 09/15/24 tablet (Farxiga) ezetimibe 10 mg tablet (Zetia) 10 mg PO DAILY #30 tabs 09/15/24 ferrous sulfate 325 mg (65 mg 325 mg PO DAILY #90 tabs 09/15/24 iron) tablet,delayed release pantoprazole 40 mg tablet,delayed 40 mg PO DAILY #30 tabs 09/15/24 release spironolactone 25 mg tablet 25 mg PO DAILY 30 days #30 tabs 09/15/24 gabapentin 300 mg capsule 300 mg PO BID 30 days #60 caps 09/19/24 Allergies Allergy/AdvReac Type Severity Reaction Status Date / Time KARL Inhibitors Allergy Severe Angioedema Verified 09/30/24 05:01 dextran 40 [DEXTRAN 40] Allergy Intermediate tachycardia Verified 09/30/24 05:01 latex [LATEX] Allergy Mild BLISTERS Verified 09/30/24 05:01 lisinopril [From Zestril] Allergy Mild Unknown Verified 09/30/24 05:01 Iodinated Contrast Media Allergy Unknown UNKNOWN Verified 09/30/24 05:01 [CONTRAST,IV] Review of Systems Review of Systems: Yes all other systems are reviewed and are negative [facility] Past Medical History [facility] Narrative: Social history: He lives at home with his . He denies tobacco, alcohol and drug use Medical History CKD stage 4 due to type 2 diabetes mellitus Heart failure Cirrhosis of liver without ascites Cognitive impairment DMII (diabetes mellitus, type 2) Hyperglycemia Symptomatic anemia Difficulty walking Anemia 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 Streptococcal bacteremia Fracture of left humerus History of prostate cancer Acute lower gastrointestinal bleeding COVID-19 vaccine series completed Hypertension Dyslipidemia Diabetic nephropathy associated with type 2 diabetes mellitus Diabetic 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 associated with type 2 diabetes mellitus terminal carman (current) use of insulin Diabetes type 2, uncontrolled Varices of esophagus determined by endoscopy Esophageal varices without bleeding KOEHLER (dyspnea on exertion) Chronic fatigue Iron deficiency anemia CAD (coronary artery disease) ANUJA on CPAP Prostate cancer Spinal stenosis On beta kayy at home IBS (irritable colon syndrome) Aortic stenosis HTN (hypertension) Polyneuropathy GERD (gastroesophageal reflux disease) Surgical History S/P infectious endocarditis H/O cataract extraction Hx of endoscopy History of colonoscopy Hx of esophagogastroduodenoscopy Hx of colonoscopy History of surgery History of transurethral resection of prostate History of surgery History of heart artery stent Family History Family History Father CVD (cardiovascular disease) Past heart attack Mother CVD (cardiovascular disease) Brain cancer Heart problem Daughter Breast cancer Sister Breast cancer Son Alive and well Family/Other Myocardial infarction Liver cancer Social History Social History Household Members: Spouse Household Members Other:: Myesha Housing: House Are you a primary health care recruiter to a significant other at home: No Do you presently have visiting nurse or other home services: Yes ([facility]) Alcohol intake: never Patient Tobacco Use Status: Never used Tobacco e-Cigarette/Vaping Use: Never Used Second Hand Smoke Exposure: No Advance Directives Date on File: 08/31/23 service: No Current occupational status: retired Cognitive needs: No Hearing needs: No Vision needs: Yes Physical Exam Vital Signs: Vital Signs: Last Vital Signs Temp 97.8 F 10/01/24 03:00 Pulse 70 10/01/24 03:31 Resp 23 H 10/01/24 03:00 BP 125/53 L 10/01/24 03:31 Pulse Ox 90 L 10/01/24 03:00 O2 Del Method Nasal Cannula 10/01/24 03:00 O2 Flow Rate 6 10/01/24 03:00 BMI result Body Mass Index 28.3 Vital signs revealed a systolic blood pressure of 70 Exam: General: Awake, alert in no distress Head: Normocephalic, atraumatic EENT: PERRL, Lids normal, sclera normal, conjunctiva normal, nose normal , ears normal, throat without erythema or exudates Neck: Supple, no adenopathy Lung: breath sounds symmetric, no wheezing, rales or rhonchi Chest: symmetric movement, nontender Heart: regular rate and rhythm, normal S1, S2 , 3/6 systolic murmur best heard at the right upper sternal border Abdomen: soft, mild diffuse tenderness, distended secondary to ascites, normoactive bowel sounds Back: no vertebral tenderness, no CVAT Extremities: no deformities, moves all extremities symmetrically Neuro: Awake, alert, oriented, normal speech, cranial nerves intact, moves all extremities symmetrically Psych: Pleasant, cooperative Medications Administered Discontinued Medications Generic Name Dose Route Start Last Admin Trade Name Freq PRN Reason Stop Dose Admin Atorvastatin Calcium 40 mg 09/30/24 21:00 09/30/24 19:48 Atorvastatin Calcium 40 Mg Tablet PO Not Given BEDTIME PANFILO Bumetanide 1 mg 09/30/24 21:00 09/30/24 21:27 Bumetanide 1 Mg/4 Ml Vial IVPUSH Not Given BID PANFILO Protocol Calcium Chloride 1 gm 09/30/24 15:01 09/30/24 15:31 Calcium Chloride 1 Gm/10 Ml Syringe IVPUSH 09/30/24 15:02 1 gm STAT STA Administration Ceftriaxone Sodium 1 gm 09/30/24 08:44 09/30/24 09:27 Ceftriaxone Sodium 1 Gm Vial IVPUSH 09/30/24 08:45 1 gm ONCE ONE Administration Finasteride 5 mg 09/30/24 09:00 09/30/24 11:45 Finasteride 5 Mg Tablet PO 5 mg DAILY PANFILO Administration Furosemide 10 mg 09/30/24 08:54 09/30/24 09:57 Furosemide 20 Mg/2 Ml Vial IVPUSH 09/30/24 08:55 10 mg ONCE ONE Administration Protocol Heparin Sodium (Porcine) 5,000 unit 09/30/24 09:30 09/30/24 11:44 Heparin Sodium,Porcine 5,000 Unit/Ml Vial SUBCUT 5,000 unit Q8H PANFILO Administration Heparin Sodium (Porcine) 5,000 unit 09/30/24 20:00 09/30/24 19:42 Heparin Sodium,Porcine 5,000 Unit/Ml Vial SUBCUT Not Given Q8H PANFILO Hydrocortisone Sodium Succinate 50 mg 09/30/24 15:00 10/01/24 02:25 Hydrocortisone Sod Succ/Pf 100 Mg Vial IVPUSH 50 mg Q6H PANFILO Administration Sodium Chloride 1,000 mls @ 999 mls/hr 09/30/24 05:02 09/30/24 07:01 Ns IV 09/30/24 06:02 Infused .Q1H1M STA Infusion Albumin Human 100 mls @ 100 mls/hr 09/30/24 07:15 09/30/24 09:59 Kedbumin 25 % IV 09/30/24 09:14 Infused Q1H PANFILO Infusion Norepinephrine Bitartrate 8 mg in 250 mls @ 0 mls/hr 09/30/24 09:00 10/01/24 03:16 Levophed IV 0.35 mcg/kg/min .Q0M PANFILO 56.96 mls/hr Administration Protocol Per Protocol Calcium Gluconate 1 gm in 50 mls @ 50 mls/hr 09/30/24 08:54 09/30/24 10:25 Calcium Gluconate IV 09/30/24 09:53 Infused ONCE ONE Infusion Dextrose 250 mls @ 750 mls/hr 09/30/24 08:56 09/30/24 20:37 D10 IV Infused Q15M PRN Infusion per Hypoglycemia Standing Ord. Protocol Piperacillin Sod/Tazobactam 50 mls @ 100 mls/hr 09/30/24 14:00 09/30/24 22:26 Sod 3.375 gm/ Sodium Chloride IV Infused Q8H PANFIOL Infusion Vancomycin HCl 2,000 mg in 500 mls @ 250 mls/hr 09/30/24 14:15 09/30/24 15:59 Vancomycin/Ns IV 09/30/24 16:14 Not Given ONCE ONE Vancomycin HCl 2,000 mg in 500 mls @ 250 mls/hr 09/30/24 14:30 09/30/24 17:35 Vancomycin/Ns IV 09/30/24 16:29 Infused ONCE ONE Infusion Vasopressin 20 unit in 100 mls @ 12 mls/hr 09/30/24 14:45 10/01/24 03:31 Vasostrict IVCONT 0 unit/min .Q8H20M PANFILO 0 mls/hr Infusion 0.04 UNIT/MIN Sodium Bicarbonate 150 meq/ 1,000 mls @ 50 mls/hr 09/30/24 16:45 09/30/24 17:51 Dextrose IV 50 mls/hr .Q20H PANFILO Administration Albumin Human 100 mls @ 100 mls/hr 09/30/24 20:00 10/01/24 03:33 Kedbumin 25 % IV 10/01/24 14:59 Infused Q6H PANFILO Infusion Calcium Gluconate 1 gm in 50 mls @ 50 mls/hr 09/30/24 19:44 09/30/24 21:16 Calcium Gluconate IV 09/30/24 20:43 Infused ONCE ONE Infusion Insulin Human Lispro 0 unit 09/30/24 11:30 09/30/24 21:52 Insulin Lispro 100 Unit/Ml 3 Ml Vial SUBCUT Not Given QIDACHS [facility] [place] Protocol Insulin Human Lispro 0 unit 10/01/24 00:00 10/01/24 00:24 Insulin Lispro 100 Unit/Ml 3 Ml Vial SUBCUT 6 unit Q6H PANFILO Administration Protocol Insulin Human Regular 5 unit 09/30/24 19:43 09/30/24 20:13 Insulin Regular, Human 100 Unit/Ml 10 Ml Vial IVPUSH 09/30/24 19:44 5 unit ONCE ONE Administration Lactulose 20 gm 09/30/24 08:56 09/30/24 11:44 Lactulose 20 Gm/30 Ml Solution PO 09/30/24 08:57 20 gm BID ONE Administration Lactulose 20 gm 09/30/24 21:00 09/30/24 19:48 Lactulose 20 Gm/30 Ml Solution PO Not Given BID PANFILO Midazolam HCl 2 mg 09/30/24 14:02 09/30/24 14:15 Midazolam Hcl 2 Mg/2 Ml Vial IVPUSH 09/30/24 14:03 2 mg ONCE ONE Administration Midodrine 10 mg 09/30/24 05:02 09/30/24 05:13 Midodrine Hcl 10 Mg Tablet PO 09/30/24 05:03 10 mg ONCE ONE Administration Midodrine 10 mg 09/30/24 06:59 09/30/24 07:13 Midodrine Hcl 10 Mg Tablet PO 09/30/24 07:00 10 mg ONCE ONE Administration Midodrine 15 mg 09/30/24 15:00 09/30/24 15:58 Midodrine Hcl 5 Mg Tablet PO Not Given TID PANFILO Pantoprazole Sodium 40 mg 09/30/24 09:00 09/30/24 11:44 Pantoprazole Sodium 40 Mg/10 Ml Vial IVPUSH 40 mg DAILY PANFILO Administration Rifaximin 550 mg 09/30/24 09:00 09/30/24 19:49 Rifaximin 550 Mg Tablet PO Not Given BID [facility] Sodium Bicarbonate 50 meq 09/30/24 08:54 09/30/24 09:25 Sodium Bicarbonate 8.4% 50 Meq/50 Ml Syringe IVPUSH 09/30/24 08:55 50 meq ONCE ONE Administration Sodium Bicarbonate 50 meq 09/30/24 15:01 09/30/24 15:31 Sodium Bicarbonate 8.4% 50 Meq/50 Ml Syringe IVPUSH 09/30/24 15:02 50 meq ONCE ONE Administration Sodium Zirconium Cyclosilicate 10 gm 09/30/24 07:12 09/30/24 07:20 Sodium Zirconium Cyclosilicate 10 Gm Powd.Pack PO 09/30/24 07:13 10 gm ONCE ONE Administration Tamsulosin HCl 0.4 mg 09/30/24 09:00 09/30/24 11:44 Tamsulosin Hcl 0.4 Mg Capsule PO 0.4 mg DAILY PANFILO Administration Medical Decision Making Medical Decision Making [facility] Narrative: 79-year-old male with a history of hepatic cirrhosis complicated by esophageal varices and ascites,diabetes mellitus with 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, hypertension, pancytopenia, GERD, anxiety, hypotension on midodrine, prostate cancer, aortic stenosis status post TAVR, coronary artery disease, who presents emergency department for evaluation of fall. The patient states that he was getting out of bed to urinate. He states that he reached for his walker, he slid to the floor. He denies any head injury. He denied headache or neck pain. Patient states he had a similar event 3 days prior and was seen here in the emergency department on 09/27/2023.. He states that since that fall he has been having pain in his right hip. He also states that he was sick being discharged from the emergency department but he was vague in describing how he has been ill. Differential diagnosis: ?Includes but is not limited to mechanical fall, fall secondary to hypotension, viral syndrome, anemia, electrolyte abnormalities, Course: 05:11 Given the patient's hypotension I did order a normal saline IV x1 L and midodrine 10 mg orally. I also ordered a sepsis/cardiac workup on the patient. I do not think that the patient had a significant injury to his head or neck therefore did not get CT scans at this time. 07:10 Chest x-ray revealed cardiomegaly but no congestive heart failure. My interpretation patient's laboratory evaluation is as follows: WBC was normal 9000. Normocytic anemia with an H&H of 8.2 and 27.1-this is chronic and higher than previous values. Low platelet count of 137,000-chronic. Potassium elevated 5.5. Bicarb low 19. BUN and creatinine were elevated at 79 and 3.17 with a GFR of 19. These numbers are higher compared to 09/27/2024 when the patient's BUN was 60, creatinine was 1.95 and GFR was 29. Lactic acid is elevated at 2.8-this is secondary to renal failure. Patient's venous blood gas revealed pH of 7.39, pCO2 of 44 and a bicarb of 21. Troponin was detectable but not elevated at 11.8. Patient was laboratory evaluation is concerning for worsening renal failure and an elevated potassium. The patient was hypotension did not improve after completing 1 L of normal saline IV and midodrine 10 mg orally. I ordered a 2nd dose of midodrine 10 mg orally and albumin 25 g IV. Patient's elevated potassium was treated with Lokelma 10 mg orally. Patient was not able to urinate therefore I ordered a Meier catheter IV so we can monitor his urine output. Meier catheter drained 400 cc of urine from his bladder. Patient's urinalysis revealed 2+ leukocyte esterase. Microscopic revealed 0-2 RBCs, 21-50 WBCs, 3-5 squamous cells and 4+ bacteria. Patient was ordered to get ceftriaxone 1 g IV for possible urinary tract infection. Repeat lactic acid improved to 2.1. Given his worsening renal failure and hypotension, patient's we will need to be admitted for further evaluation. 08:42 I did discuss the patient's presentation over tiger text with the covering chemical production machine operator, Dr. Melyssa Franco who accepted the patient into the intensive care unit. I suspect that the patient's acute renal failure and elevated lactic acid is caused by his chronic hypotension and kidney disease and not an infectious process. Admission/Observation Consideration of admission/observation: Escalation of care including admission/observation considered (Yes) Consult Healthcare Provider Management of the patient was discussed with: Wheel Shop Supervisor (Factory Clerk, Dr. Melyssa Franco) Lab Data MDM Lab Attestation statement: I reviewed the patient's lab results. 09/30/24 19:02 09/30/24 23:51 Labs: Lab Results 09/30/24 09/30/24 09/30/24 Range/Units 04:49 04:50 04:51 WBC 9.0 (4.8-10.8) X10*3/uL RBC 3.01 L D (4.60-5.80) X10*6/uL Hgb 8.2 L (14.0-18.0) g/dl Hct 27.1 L D (42.0-52.0) % MCV 90.0 (80.0-98.0) fL MCH 27.2 (27.0-33.0) pg MCHC 30.3 L (31.0-36.0) g/dl RDW 15.7 (11.0-16.0) % Plt Count 137 L (160-400) X10*3/uL MPV 11.4 (9.4-12.4) fL Immature Gran % (Auto) 0.4 (0.0-0.4) % Neut % (Auto) 87.2 H (45-73) % Lymph % (Auto) 1.8 L (20-40) % [place] % (Auto) 10.2 (2-11) % Eos % (Auto) 0.0 (0-4) % Baso % (Auto) 0.4 (0-2) % Lymph # (Auto) 0.2 L (1.2-4.9) X10*3/uL [place] # (Auto) 0.9 (0.1-1.2) X10*3/uL Eos # (Auto) 0.0 (0.0-0.4) X10*3/uL Baso # (Auto) 0.0 (0.0-0.2) X10*3/uL Abs Immat Gran (auto) 0.04 H (0.00-0.03) X10*3/uL Absolute Neuts (auto) 7.8 (2.0-8.3) x10*3/uL Absolute Nucleated RBC 0.000 (0.0-0.012) X10*3/uL Nucleated RBC % (auto) 0.0 (0.0-0.2) /100WBC PT 21.2 H D (10.9-12.4) SEC INR 1.8 H (0.9-1.1) VBG pH (7.32-7.43) VBG pCO2 mmHg VBG pO2 mmHg VBG HCO3 (22-26) mmol/L VBG O2 Saturation % VBG Base Excess mmol/L Sodium 131 L (135-145) mmol/L Potassium 5.5 H D (3.3-5.1) mmol/L Chloride 100 (96-108) mmol/L Carbon Dioxide 19 L (22-29) mmol/L Anion Gap 18 (12-20) BUN 79 H (9-16) mg/dL Creatinine 3.17 H (0.5-1.4) mg/dL Estim Creat Clear Calc 19.9 Estimated GFR 19 Random Glucose 152 H (60-115) mg/dL Lactic Acid (0.5-2.0) mmol/L Lactic Acid F/U @ 2Hr (0.5-2.0) mmol/L Calcium 7.8 L (8.4-10.2) mg/dL Total Bilirubin 1.7 H (0.0-1.0) mg/dL AST 45 H (5-37) U/L ALT 18 (0-40) U/L Alkaline Phosphatase 180 H (39-117) U/L Total Creatine Kinase 142 (38-174) U/L Troponin I High Sens 11.8 (<3.5-35.0) ng/L B-Natriuretic Peptide (<100) pg/mL Total Protein 6.0 L (6.5-8.0) g/dL Albumin 2.2 L (3.5-5.0) g/dL Urine Color Urine Appearance Urine pH (5.0-9.0) Ur Specific [place] (1.005-1.025) Urine Protein (Neg-Trace) mg/dL Urine Glucose (UA) (Negative) mg/dL Urine Ketones (Negative) mg/dL Urine Blood (Negative) Urine Nitrite (Negative) Ur Leukocyte Esterase (Negative) Urine RBC (0-2) /HPF Urine WBC (0-5) /HPF Ur Squamous Epith Cells (0-2) /HPF Urine Bacteria (None Seen) Hyaline Casts (0-2) /LPF COVID-19 (MAJOR) (Negative) COVID-19 Clin Com Influenza Type A (MARYAM) (Negative) Influenza Type B (MARYAM) (Negative) Influenza A & B Note 09/30/24 09/30/24 09/30/24 Range/Units 04:52 04:55 04:59 WBC (4.8-10.8) X10*3/uL RBC (4.60-5.80) X10*6/uL Hgb (14.0-18.0) g/dl Hct (42.0-52.0) % MCV (80.0-98.0) fL MCH (27.0-33.0) pg MCHC (31.0-36.0) g/dl RDW (11.0-16.0) % Plt Count (160-400) X10*3/uL MPV (9.4-12.4) fL Immature Gran % (Auto) (0.0-0.4) % Neut % (Auto) (45-73) % Lymph % (Auto) (20-40) % [place] % (Auto) (2-11) % Eos % (Auto) (0-4) % Baso % (Auto) (0-2) % Lymph # (Auto) (1.2-4.9) X10*3/uL [place] # (Auto) (0.1-1.2) X10*3/uL Eos # (Auto) (0.0-0.4) X10*3/uL Baso # (Auto) (0.0-0.2) X10*3/uL Abs Immat Gran (auto) (0.00-0.03) X10*3/uL Absolute Neuts (auto) (2.0-8.3) x10*3/uL Absolute Nucleated RBC (0.0-0.012) X10*3/uL Nucleated RBC % (auto) (0.0-0.2) /100WBC PT (10.9-12.4) SEC INR (0.9-1.1) VBG pH 7.29 L (7.32-7.43) VBG pCO2 44 mmHg VBG pO2 28 mmHg VBG HCO3 21 L (22-26) mmol/L VBG O2 Saturation < 30.0 % VBG Base Excess -4.8 mmol/L Sodium (135-145) mmol/L Potassium (3.3-5.1) mmol/L Chloride (96-108) mmol/L Carbon Dioxide (22-29) mmol/L Anion Gap (12-20) BUN (9-16) mg/dL Creatinine (0.5-1.4) mg/dL Estim Creat Clear Calc Estimated GFR Random Glucose (60-115) mg/dL Lactic Acid 2.8 H* (0.5-2.0) mmol/L Lactic Acid F/U @ 2Hr (0.5-2.0) mmol/L Calcium (8.4-10.2) mg/dL Total Bilirubin (0.0-1.0) mg/dL AST (5-37) U/L ALT (0-40) U/L Alkaline Phosphatase (39-117) U/L Total Creatine Kinase (38-174) U/L Troponin I High Sens (<3.5-35.0) ng/L B-Natriuretic Peptide 635 H (<100) pg/mL Total Protein (6.5-8.0) g/dL Albumin (3.5-5.0) g/dL Urine Color Urine Appearance Urine pH (5.0-9.0) Ur Specific [place] (1.005-1.025) Urine Protein (Neg-Trace) mg/dL Urine Glucose (UA) (Negative) mg/dL Urine Ketones (Negative) mg/dL Urine Blood (Negative) Urine Nitrite (Negative) Ur Leukocyte Esterase (Negative) Urine RBC (0-2) /HPF Urine WBC (0-5) /HPF Ur Squamous Epith Cells (0-2) /HPF Urine Bacteria (None Seen) Hyaline Casts (0-2) /LPF COVID-19 (MAJOR) Negative (Negative) COVID-19 Clin Com See Note Influenza Type A (MARYAM) Negative (Negative) Influenza Type B (MARYAM) Negative (Negative) Influenza A & B Note See Note 09/30/24 Range/Units 07:48 WBC (4.8-10.8) X10*3/uL RBC (4.60-5.80) X10*6/uL Hgb (14.0-18.0) g/dl Hct (42.0-52.0) % MCV (80.0-98.0) fL MCH (27.0-33.0) pg MCHC (31.0-36.0) g/dl RDW (11.0-16.0) % Plt Count (160-400) X10*3/uL MPV (9.4-12.4) fL Immature Gran % (Auto) (0.0-0.4) % Neut % (Auto) (45-73) % Lymph % (Auto) (20-40) % [place] % (Auto) (2-11) % Eos % (Auto) (0-4) % Baso % (Auto) (0-2) % Lymph # (Auto) (1.2-4.9) X10*3/uL [place] # (Auto) (0.1-1.2) X10*3/uL Eos # (Auto) (0.0-0.4) X10*3/uL Baso # (Auto) (0.0-0.2) X10*3/uL Abs Immat Gran (auto) (0.00-0.03) X10*3/uL Absolute Neuts (auto) (2.0-8.3) x10*3/uL Absolute Nucleated RBC (0.0-0.012) X10*3/uL Nucleated RBC % (auto) (0.0-0.2) /100WBC PT (10.9-12.4) SEC INR (0.9-1.1) VBG pH (7.32-7.43) VBG pCO2 mmHg VBG pO2 mmHg VBG HCO3 (22-26) mmol/L VBG O2 Saturation % VBG Base Excess mmol/L Sodium (135-145) mmol/L Potassium (3.3-5.1) mmol/L Chloride (96-108) mmol/L Carbon Dioxide (22-29) mmol/L Anion Gap (12-20) BUN (9-16) mg/dL Creatinine (0.5-1.4) mg/dL Estim Creat Clear Calc Estimated GFR Random Glucose (60-115) mg/dL Lactic Acid (0.5-2.0) mmol/L Lactic Acid F/U @ 2Hr 2.1 H* (0.5-2.0) mmol/L Calcium (8.4-10.2) mg/dL Total Bilirubin (0.0-1.0) mg/dL AST (5-37) U/L ALT (0-40) U/L Alkaline Phosphatase (39-117) U/L Total Creatine Kinase (38-174) U/L Troponin I High Sens (<3.5-35.0) ng/L B-Natriuretic Peptide (<100) pg/mL Total Protein (6.5-8.0) g/dL Albumin (3.5-5.0) g/dL Urine Color Yellow Urine Appearance Clear Urine pH 5.0 (5.0-9.0) Ur Specific [place] 1.015 (1.005-1.025) Urine Protein Negative (Neg-Trace) mg/dL Urine Glucose (UA) 500 H (Negative) mg/dL Urine Ketones Negative (Negative) mg/dL Urine Blood Negative (Negative) Urine Nitrite Negative (Negative) Ur Leukocyte Esterase Moderate (2+) H (Negative) Urine RBC 0-2 (0-2) /HPF Urine WBC 21-50 H (0-5) /HPF Ur Squamous Epith Cells 3-5 (0-2) /HPF Urine Bacteria 4+ (None Seen) Hyaline Casts 0-2 (0-2) /LPF COVID-19 (MAJOR) (Negative) COVID-19 Clin Com Influenza Type A (MARYAM) (Negative) Influenza Type B (MARYAM) (Negative) Influenza A & B Note Independent Interpretation I performed an independent interpretation of an: EKG Interpretation: My independent interpretation patient's 12 EKG is as follows: ventricular paced rhythm with a rate of 63 My interpretation of the patient's chest x-ray is as follows: Cardiomegaly with no obvious below effusions Radiology Impression Discussion of test interpretation with radiology: I have reviewed the radiologist's reading. Radiologist Impression: XR CHEST 1V - 09/27/24 09:55 EST Findings: Cardiomegaly with low lung volumes. Prior aortic valve replacement. Left basilar atelectasis. Dual lead pacer with left chest battery pack. No acute osseous findings. IMPRESSION: 1. Cardiomegaly with low lung volumes. Left basilar atelectasis. This document has been electronically signed by: Melyssa Bills MD on 09/30/2024 05:19:09 Dictated By: Melyssa Bills MD External Record Review External record reviewed: Inpatient record Chronic Conditions Patient?s care impacted by: Diabetes and Other (Cirrhosis) Critical Care Time Critical Care Time Critical Care Time: Yes Total Critical Care Time: 45 Attestation: Critical Care: The patient was critically ill with a high probability of imminent or life threatening deterioration. I spent greater than 30 minutes of discontinuous time evaluating the patient,delivering critical care at the bedside, discussing and evaluating pertinent data with consultants. Critical care time does not include time spent performing separately billable procedures or teaching. Total time spent performing critical care was 45 minutes. Discharge Plan Discharge Clinical Impression: Acute hypotension, Acute on chronic kidney failure, Acute UTI Patient Disposition: Admitted As Inpatient Discharge Date/Time: 09/30/24 10:18
[2024-09-30 05:07] LABS: INTERNATIONAL NORM RATIO 1.8 (0.9-1.1); Prothrombin Time 21.2 SEC (10.9-12.4)
[2024-09-30] MEDS: 0.9 % Sodium Chloride 1,000 ML 999 ML IV (05:11)
[2024-09-30] MEDS: Midodrine HCl 10 MG TABLET PO ×2 (05:13→07:13)
[2024-09-30 05:15] LABS: VBG Base Excess -4.8 mmol/L; VBG HCO3 21 mmol/L (22-26); VBG O2 % Saturation < 30.0 %; VBG pCO2 44 mmHg; VBG pH 7.29 (7.32-7.43); VBG pO2 28 mmHg
[2024-09-30 05:20] LABS: Troponin-I High Sensitivity 11.8 ng/L (<3.5-35.0)
[2024-09-30 05:21] LABS: Alanine Aminotransferase 18 U/L (0-40); Albumin Level 2.2 g/dL (3.5-5.0); Anion Gap 18 (12-20); Aspartate Amino Transferase 45 U/L (5-37); Bilirubin Total 1.7 mg/dL (0.0-1.0); Blood Urea Nitrogen 79 mg/dL (9-16); Calcium 7.8 mg/dL (8.4-10.2); Carbon Dioxide 19 mmol/L (22-29); Chloride 100 mmol/L (96-108); Creatinine Clr Calc Pharmacy 19.9; Estimated Glomerular Filt Rate 19; Glucose Random 152 mg/dL (60-115); Potassium 5.5 mmol/L (3.3-5.1); Sodium 131 mmol/L (135-145)
[2024-09-30 05:25] LABS: Alkaline Phosphatase 180 U/L (39-117)
[2024-09-30 05:33] LABS: Lactic Acid 2.8 mmol/L (0.5-2.0)
[2024-09-30 05:46] LABS: B Type Natriuretic Peptide 635 pg/mL (<100)
[2024-09-30 05:48] LABS: COVID-19 Test Negative (Negative); IDNOW Serial# 55D5AD1C; IDNOW Serial# 58CA691E; Influenza A Negative (Negative); Influenza B2 Negative (Negative)
--- OUTSIDE RECORDS SUMMARY | 2024-09-30 06:02 | XMS_ITS | Clinical Summary ---
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 11-12 00:00: 00 PRISON (CURRENT) USE OF ORAL 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 DRUGS Active 11-12 00:00: 00 HEART SURGEON (CURRENT) USE OF INSULIN Active 11-12 00:00: [...] 10-21 00:00: 00 02-01 23:59 :00 No [id number] Per instruc tions AT BEDTIME Per instructio ns AT BEDTIME (route: subcutaneo us) Med Classific ation: Endocrine bethanechol chloride 25 mg tablet 10-18 00:00: 00 04-25 00:00 :00 No [id number] Per instruc tions TWICE DAILY Per instructio ns TWICE DAILY (route: oral) Med Classific ation: Genitouri nary Therapy Farxiga 10 mg tablet 2-04 00:00: 00 08-01 23:59 :00 No [id number] Per instruc tions DAILY Per instructio ns DAILY (route: oral) Med Classific ation: Endocrine ezetimibe 10 mg tablet 1-30 00:00: 00 08-01 23:59 :00 No [id number] Unavailable Per instruc tions DAILY Per instructio ns DAILY (route: oral) Med Classific ation: Cardiovas cular Therapy Agents Novolog FlexPen U-100 Insulin aspart 100 unit/mL (3 mL) subcutane s 1- 00:00: 00 03-21 23:59 :00 No [id number] Per instruc tions 3 TIMES DAILY Per instructio ns 3 TIMES DAILY (route: subcutaneo us) Med Classific ation: Endocrine Basaglar KwikPen U-100 Insulin 100 unit/mL (3 mL) [facility] 1-25 00:00: 00 11-12 23:59 :00 No [id number] Unavailable Per instruc tions SUBCUTANEO US ONCE EVERY Per instructio ns SUBCUTANEO US ONCE EVERY (route: subcutaneo us) Med Classific ation: Endocrine alprazolam 0.5 mg tablet 1-22 00:00: 00 02-01 23:59 :00 No [id number] Unavailable Per instruc tions TWICE DAILY NEEDED Per instructio ns TWICE DAILY NEEDED (route: oral) Med Classific ation: Central Nervous System Agents aspirin 81 mg tablet,shayna yed release - 00:00: 00 04-25 23:59 :00 No [id number] 1 tablet DAILY 1 tablet DAILY (route: oral) Med Classific ation: Hematolog ical Agents atorvastati n 80 mg tablet 3- 00:00: 00 04-25 23:59 :00 No [id number] 1 tablet BEDTIME 1 tablet BEDTIME (route: oral) Med Classific ation: Cardiovas cular Therapy Agents carvedilol 6.25 mg tablet 11-12 00:00: 00 03-01 23:59 :00 No [id number] 1 tablet 2 TIMES DAILY 1 tablet 2 TIMES DAILY (route: oral) Med Classific ation: Cardiovas cular Therapy Agents finasteride 5 mg tablet 11-12 00:00: 00 08-01 23:59 :00 No [id number] 1 tablet DAILY 1 tablet DAILY (route: oral) Med Classific ation: Genitouri nary Therapy Flomax 0.4 mg capsule 11-12 00:00: 00 08-01 23:59 :00 No [id number] 1 capsule DAILY 1 capsule DAILY (route: oral) Med Classific ation: Genitouri nary Therapy gabapentin 400 mg capsule 11-12 00:00: 00 02-01 23:59 :00 No [id number] 1 capsule 2 TIMES DAILY 1 capsule 2 TIMES DAILY (route: oral) Med Classific ation: Central Nervous System Agents iron 325 mg (65 mg iron) tablet 11-12 00:00: 00 08-01 23:59 :00 No [id number] 1 tablet DAILY 1 tablet DAILY (route: oral) Med Classific ation: Electroly te Balance-N utritiona l Products pantoprazol e 40 mg tablet,shayna yed release 11-12 00:00: 00 08-01 23:59 :00 No [id number] 1 tablet DAILY 1 tablet DAILY (route: oral) Med Classific ation: Gastroint estinal Therapy Agents spironolact one 50 mg tablet 11-12 00:00: 00 02-01 23:59 :00 No [id number] 1 tablet DAILY 1 tablet DAILY (route: oral) Med Classific ation: Cardiovas cular Therapy Agents Trulicity 0.75 mg/0.5 mL subcutaneou s pen injector 11-12 00:00: 00 08-01 23:59 :00 No [id number] 0.5 mL WEEKLY 0.5 mL WEEKLY (route: subcutaneo us) Med Classific ation: Endocrine Vitamin B-12 500 mcg tablet 11-12 00:00: 00 02-01 00:00 :00 No [id number] 2 tablet BEDTIME 2 tablet BEDTIME (route: oral) Med Classific ation: Electroly te Balance-N utritiona l Products alprazolam 0.5 mg tablet 02-08 00:00: 00 04-25 23:59 :00 No [id number] 1 tablet 2 TIMES DAILY 1 tablet 2 TIMES DAILY (route: oral) Med Classific ation: Central Nervous System Agents bumetanide 1 mg tablet 02-01 00:00: 00 02-17 23:59 :00 No [id number] 1 mg DAILY 1 mg DAILY (route: oral) Med Classific ation: Cardiovas cular Therapy Agents ciprofloxac in 500 mg tablet 02-01 00:00: 00 02-02 23:59 :00 No [id number] 1 tablet DAILY 1 tablet DAILY (route: oral) Med Classific ation: Anti-Infe ctive Agents cyanocobala min (vit B-12) 500 mcg tablet 02-01 00:00: 00 08-01 23:59 :00 No [id number] 2 tablet BEDTIME 2 tablet BEDTIME (route: oral) Med Classific ation: Electroly te Balance-N utritiona l Products gabapentin 400 mg capsule 02-08 00:00: 00 04-25 23:59 :00 No [id number] 1 capsule 2 TIMES DAILY 1 capsule 2 TIMES DAILY (route: oral) Med Classific ation: Central Nervous System Agents lactulose 20 gram/30 mL oral solution 02-01 00:00: 00 04-25 23:59 :00 No [id number] 45 mL 3 TIMES DAILY 45 mL 3 TIMES DAILY (route: oral) Med Classific ation: Gastroint estinal Therapy Agents Tresiba FlexTouch U-100 insulin 100 unit/mL (3 mL) subcutaneou s pen 02-01 00:00: 00 08-01 23:59 :00 No [id number] 6 unit BEDTIME 6 unit BEDTIME (route: subcutaneo us) Med Classific ation: Endocrine bumetanide 1 mg tablet 02-17 00:00: 00 02-21 23:59 :00 No [id number] 2 tablet DAILY 2 tablet DAILY (route: oral) Med Classific ation: Cardiovas cular Therapy Agents bumetanide 1 mg tablet 02-17 00:00: 00 03-01 23:59 :00 No [id number] 1 tablet 2 TIMES DAILY 1 tablet 2 TIMES DAILY (route: oral) Med Classific ation: Cardiovas cular Therapy Agents spironolact one 25 mg tablet 03-01 00:00: 00 04-25 00:00 :00 No [id number] 2 tablet DAILY 2 tablet DAILY (route: oral) Med Classific ation: Cardiovas cular Therapy Agents torsemide 20 mg tablet 03-01 00:00: 00 04-25 00:00 :00 No [id number] 2 tablet DAILY 2 tablet DAILY (route: oral) Med Classific ation: Cardiovas cular Therapy Agents midodrine 10 mg tablet 03-01 00:00: 00 08-01 23:59 :00 No [id number] 1 tablet DIRECTED 1 tablet DIRECTED (route: oral) Med Classific ation: Cardiovas cular Therapy Agents Humulin R Regular U-100 Insulin 100 unit/mL injection solution 03-21 00:00: 00 04-25 00:00 :00 No [id number] 20 unit 3 TIMES DAILY 20 unit 3 TIMES DAILY (route: injection) Med Classific ation: Endocrine Basaglar KwikPen U-100 Insulin 100 unit/mL (3 mL) [facility] 04-25 00:00: 00 08-01 23:59 :00 No [id number] 1 unit 3 TIMES DAILY 1 unit 3 TIMES DAILY (route: subcutaneo us) Med Classific ation: Endocrine bumetanide 1 mg tablet 04-25 00:00: 00 08-01 23:59 :00 No [id number] 1 tablet DAILY 1 tablet DAILY (route: oral) Med Classific ation: Cardiovas cular Therapy Agents spironolact one 25 mg tablet 04-25 00:00: 00 08-01 23:59 :00 No [id number] 1 tablet DAILY 1 tablet DAILY (route: oral) Med Classific ation: Cardiovas cular Therapy Agents atorvastati n 80 mg tablet 04-26 00:00: 00 08-01 23:59 :00 No [id number] 0.5 tablet BEDTIME 0.5 tablet BEDTIME (route: oral) Med Classific ation: Cardiovas cular Therapy Agents carvedilol 6.25 mg tablet 04-26 00:00: 00 08-01 23:59 :00 No [id number] 1 tablet 2 TIMES DAILY 1 tablet 2 TIMES DAILY (route: oral) Med Classific ation: Cardiovas cular Therapy Agents alprazolam 0.5 mg tablet 04-26 00:00: 00 08-01 23:59 :00 No [id number] 1 tablet 2 TIMES DAILY 1 tablet 2 TIMES DAILY (route: oral) Med Classific ation: Central Nervous System Agents gabapentin 300 mg capsule 04-26 00:00: 00 08-01 23:59 :00 No [id number] 1 capsule 2 TIMES DAILY 1 capsule 2 TIMES DAILY (route: oral) Med Classific ation: Central Nervous System Agents cyanocobala min (vit B-12) 500 mcg tablet 04-26 00:00: 00 08-01 23:59 :00 No [id number] 2 tablet BEDTIME 2 tablet BEDTIME (route: oral) Med Classific ation: Electroly te Balance-N utritiona l Products lactulose 10 gram/15 mL oral solution 04-26 00:00: 00 08-01 23:59 :00 No [id number] 30 mL 2 TIMES DAILY 30 mL [...] CARE WILL BE ESTABLISHED THAT MEETS PATIENT'S JAIL NEEDS AND INCLUDES PATIENT GOAL FOR HOME [...] Encounter Type Admission Type Attending [facility] Care Facility Care Department Encounter ID Discharge Date Discharge Status Discharge Condition Discharge Reason Percent Goals Met 2023-11-13 00:00:00 2024-05-10 00:00:00 [facility] [id number] 2024-05-10 00:00:00 DISCHARGED /TRANSFERR ED TO A [facility] FOR INPATIENT CARE REMAINS INPATIENT AT TIME OF DISCHARGE REMAINS IN INPATIENT FACILITY AT END OF CERT PERIOD 75.76
--- OUTSIDE RECORDS SUMMARY | 2024-09-30 06:02 | XMS_ITS | Continuity of Care Document ---
Author Organization [facility] Address [address] [address] Phone Care Team Providers Care Community Engagement Manager Name Role Phone NAMITA Jacobson RD, Shauna Unavailable Unavail able Advance Directives Directive Yes / No Effective Date File Name No Information Encounters Encounter Description Practice Location Reason(s) For Visit Diagnoses Date Provider Providers Copied on Encounter [facility], [address] [address], [place], [place], [id number], [place] tel:[phone] [facility] No Information Indira Villatoro. [address] [place], [address]. tel:[phone] Family History Family Member Type Diagnosis Age [...]
--- OUTSIDE RECORDS SUMMARY | 2024-09-30 06:02 | XMS_ITS | Clinical Summary ---
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 11-12 00:00: 00 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 11-12 00:00: 00 GROUP HOME (CURRENT) USE OF ORAL 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 DRUGS Active 11-12 00:00: 00 CHURCH SUPERVISOR (CURRENT) USE OF INSULIN Active 11-12 00:00: [...] 10-21 00:00: 00 02-01 23:59 :00 No [id number] Per instruc tions AT BEDTIME Per instructio ns AT BEDTIME (route: subcutaneo us) Med Classific ation: Endocrine bethanechol chloride 25 mg tablet 10-18 00:00: 00 04-25 00:00 :00 No [id number] Per instruc tions TWICE DAILY Per instructio ns TWICE DAILY (route: oral) Med Classific ation: Genitouri nary Therapy Farxiga 10 mg tablet 2-04 00:00: 00 08-01 23:59 :00 No [id number] Per instruc tions DAILY Per instructio ns DAILY (route: oral) Med Classific ation: Endocrine ezetimibe 10 mg tablet 1-30 00:00: 00 08-01 23:59 :00 No [id number] Unavailable Per instruc tions DAILY Per instructio ns DAILY (route: oral) Med Classific ation: Cardiovas cular Therapy Agents Novolog FlexPen U-100 Insulin aspart 100 unit/mL (3 mL) subcutane s 1- 00:00: 00 03-21 23:59 :00 No [id number] Per instruc tions 3 TIMES DAILY Per instructio ns 3 TIMES DAILY (route: subcutaneo us) Med Classific ation: Endocrine Basaglar KwikPen U-100 Insulin 100 unit/mL (3 mL) [facility] 1-25 00:00: 00 11-12 23:59 :00 No [id number] Unavailable Per instruc tions SUBCUTANEO US ONCE EVERY Per instructio ns SUBCUTANEO US ONCE EVERY (route: subcutaneo us) Med Classific ation: Endocrine alprazolam 0.5 mg tablet 1-22 00:00: 00 02-01 23:59 :00 No [id number] Unavailable Per instruc tions TWICE DAILY NEEDED Per instructio ns TWICE DAILY NEEDED (route: oral) Med Classific ation: Central Nervous System Agents aspirin 81 mg tablet,shayna yed release - 00:00: 00 04-25 23:59 :00 No [id number] 1 tablet DAILY 1 tablet DAILY (route: oral) Med Classific ation: Hematolog ical Agents atorvastati n 80 mg tablet 3- 00:00: 00 04-25 23:59 :00 No [id number] 1 tablet BEDTIME 1 tablet BEDTIME (route: oral) Med Classific ation: Cardiovas cular Therapy Agents carvedilol 6.25 mg tablet 11-12 00:00: 00 03-01 23:59 :00 No [id number] 1 tablet 2 TIMES DAILY 1 tablet 2 TIMES DAILY (route: oral) Med Classific ation: Cardiovas cular Therapy Agents finasteride 5 mg tablet 11-12 00:00: 00 08-01 23:59 :00 No [id number] 1 tablet DAILY 1 tablet DAILY (route: oral) Med Classific ation: Genitouri nary Therapy Flomax 0.4 mg capsule 11-12 00:00: 00 08-01 23:59 :00 No [id number] 1 capsule DAILY 1 capsule DAILY (route: oral) Med Classific ation: Genitouri nary Therapy gabapentin 400 mg capsule 11-12 00:00: 00 02-01 23:59 :00 No [id number] 1 capsule 2 TIMES DAILY 1 capsule 2 TIMES DAILY (route: oral) Med Classific ation: Central Nervous System Agents iron 325 mg (65 mg iron) tablet 11-12 00:00: 00 08-01 23:59 :00 No [id number] 1 tablet DAILY 1 tablet DAILY (route: oral) Med Classific ation: Electroly te Balance-N utritiona l Products pantoprazol e 40 mg tablet,shayna yed release 11-12 00:00: 00 08-01 23:59 :00 No [id number] 1 tablet DAILY 1 tablet DAILY (route: oral) Med Classific ation: Gastroint estinal Therapy Agents spironolact one 50 mg tablet 11-12 00:00: 00 02-01 23:59 :00 No [id number] 1 tablet DAILY 1 tablet DAILY (route: oral) Med Classific ation: Cardiovas cular Therapy Agents Trulicity 0.75 mg/0.5 mL subcutaneou s pen injector 11-12 00:00: 00 08-01 23:59 :00 No [id number] 0.5 mL WEEKLY 0.5 mL WEEKLY (route: subcutaneo us) Med Classific ation: Endocrine Vitamin B-12 500 mcg tablet 11-12 00:00: 00 02-01 00:00 :00 No [id number] 2 tablet BEDTIME 2 tablet BEDTIME (route: oral) Med Classific ation: Electroly te Balance-N utritiona l Products alprazolam 0.5 mg tablet 02-08 00:00: 00 04-25 23:59 :00 No [id number] 1 tablet 2 TIMES DAILY 1 tablet 2 TIMES DAILY (route: oral) Med Classific ation: Central Nervous System Agents bumetanide 1 mg tablet 02-01 00:00: 00 02-17 23:59 :00 No [id number] 1 mg DAILY 1 mg DAILY (route: oral) Med Classific ation: Cardiovas cular Therapy Agents ciprofloxac in 500 mg tablet 02-01 00:00: 00 02-02 23:59 :00 No [id number] 1 tablet DAILY 1 tablet DAILY (route: oral) Med Classific ation: Anti-Infe ctive Agents cyanocobala min (vit B-12) 500 mcg tablet 02-01 00:00: 00 08-01 23:59 :00 No [id number] 2 tablet BEDTIME 2 tablet BEDTIME (route: oral) Med Classific ation: Electroly te Balance-N utritiona l Products gabapentin 400 mg capsule 02-08 00:00: 00 04-25 23:59 :00 No [id number] 1 capsule 2 TIMES DAILY 1 capsule 2 TIMES DAILY (route: oral) Med Classific ation: Central Nervous System Agents lactulose 20 gram/30 mL oral solution 02-01 00:00: 00 04-25 23:59 :00 No [id number] 45 mL 3 TIMES DAILY 45 mL 3 TIMES DAILY (route: oral) Med Classific ation: Gastroint estinal Therapy Agents Tresiba FlexTouch U-100 insulin 100 unit/mL (3 mL) subcutaneou s pen 02-01 00:00: 00 08-01 23:59 :00 No [id number] 6 unit BEDTIME 6 unit BEDTIME (route: subcutaneo us) Med Classific ation: Endocrine bumetanide 1 mg tablet 02-17 00:00: 00 02-21 23:59 :00 No [id number] 2 tablet DAILY 2 tablet DAILY (route: oral) Med Classific ation: Cardiovas cular Therapy Agents bumetanide 1 mg tablet 02-17 00:00: 00 03-01 23:59 :00 No [id number] 1 tablet 2 TIMES DAILY 1 tablet 2 TIMES DAILY (route: oral) Med Classific ation: Cardiovas cular Therapy Agents spironolact one 25 mg tablet 03-01 00:00: 00 04-25 00:00 :00 No [id number] 2 tablet DAILY 2 tablet DAILY (route: oral) Med Classific ation: Cardiovas cular Therapy Agents torsemide 20 mg tablet 03-01 00:00: 00 04-25 00:00 :00 No [id number] 2 tablet DAILY 2 tablet DAILY (route: oral) Med Classific ation: Cardiovas cular Therapy Agents midodrine 10 mg tablet 03-01 00:00: 00 08-01 23:59 :00 No [id number] 1 tablet DIRECTED 1 tablet DIRECTED (route: oral) Med Classific ation: Cardiovas cular Therapy Agents Humulin R Regular U-100 Insulin 100 unit/mL injection solution 03-21 00:00: 00 04-25 00:00 :00 No [id number] 20 unit 3 TIMES DAILY 20 unit 3 TIMES DAILY (route: injection) Med Classific ation: Endocrine Basaglar KwikPen U-100 Insulin 100 unit/mL (3 mL) [facility] 04-25 00:00: 00 08-01 23:59 :00 No [id number] 1 unit 3 TIMES DAILY 1 unit 3 TIMES DAILY (route: subcutaneo us) Med Classific ation: Endocrine bumetanide 1 mg tablet 04-25 00:00: 00 08-01 23:59 :00 No [id number] 1 tablet DAILY 1 tablet DAILY (route: oral) Med Classific ation: Cardiovas cular Therapy Agents spironolact one 25 mg tablet 04-25 00:00: 00 08-01 23:59 :00 No [id number] 1 tablet DAILY 1 tablet DAILY (route: oral) Med Classific ation: Cardiovas cular Therapy Agents atorvastati n 80 mg tablet 04-26 00:00: 00 08-01 23:59 :00 No [id number] 0.5 tablet BEDTIME 0.5 tablet BEDTIME (route: oral) Med Classific ation: Cardiovas cular Therapy Agents carvedilol 6.25 mg tablet 04-26 00:00: 00 08-01 23:59 :00 No [id number] 1 tablet 2 TIMES DAILY 1 tablet 2 TIMES DAILY (route: oral) Med Classific ation: Cardiovas cular Therapy Agents alprazolam 0.5 mg tablet 04-26 00:00: 00 08-01 23:59 :00 No [id number] 1 tablet 2 TIMES DAILY 1 tablet 2 TIMES DAILY (route: oral) Med Classific ation: Central Nervous System Agents gabapentin 300 mg capsule 04-26 00:00: 00 08-01 23:59 :00 No [id number] 1 capsule 2 TIMES DAILY 1 capsule 2 TIMES DAILY (route: oral) Med Classific ation: Central Nervous System Agents cyanocobala min (vit B-12) 500 mcg tablet 04-26 00:00: 00 08-01 23:59 :00 No [id number] 2 tablet BEDTIME 2 tablet BEDTIME (route: oral) Med Classific ation: Electroly te Balance-N utritiona l Products lactulose 10 gram/15 mL oral solution 04-26 00:00: 00 08-01 23:59 :00 No [id number] 30 mL 2 TIMES DAILY 30 mL [...] CARE WILL BE ESTABLISHED THAT MEETS PATIENT'S SENIOR LIVING NEEDS AND INCLUDES PATIENT GOAL FOR HOME [...] End Date/Time Encounter Type Admission Type Attending [facility] Facility Care Department Encounter ID Discharge Date Discharge Status Discharge Condition Discharge Reason Percent Goals Met 2023-11-13 00:00:00 2024-05-10 00:00:00 [facility] [id number] 2024-05-10 00:00:00 DISCHARGED /TRANSFERR ED TO A [facility] FOR INPATIENT CARE REMAINS INPATIENT AT TIME OF DISCHARGE REMAINS IN INPATIENT FACILITY AT END OF CERT PERIOD 75.76
--- OUTSIDE RECORDS SUMMARY | 2024-09-30 06:02 | XMS_ITS | Clinical Summary ---
Author Organization Unknown Care Team Providers Care Anchor Tack Puller Name Role Phone RYAN TAPIA, LEI Unavailable Unavailable JOSE THORNE, GRETA Unavailable Unavailable Payers Payer Name Policy Type Policy Number Effective Date Expira tion Date MEDICARE.NGS.PDGM [id number] Problems Condition Name Condition Details Condition Category [...] 02-08 00:00: 00 ATHSCL HEART DISEASE OF [place] CORONARY ARTERY W/O ANG PCTRS Active 09-14 [...] MANAGEMENT OF VAD Active 02-08 00:00: 00 LONGTERM (CURRENT) USE OF INSULIN Active 09-14 00:00: 00 LNG TRM (CRNT) USE INJECTABLE NON-INSULIN ANTIDIABETIC DRUGS Active 09-14 00:00: 00 LONGTERM (CURRENT) USE OF ORAL 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 DRUGS Active 09-14 00:00: 00 LONGTERM (CURRENT) USE OF ANTITHROMBOT ICS/ANTIPLAT ELETS Active [...] 01-14 00:00: 00 02-08 23:59 :00 No [id number] ANXIETY 1 tablet 2 TIMES DAILY 1 tablet 2 TIMES DAILY (route: oral) Med Classific ation: Central Nervous System Agents atorvastati n 80 mg tablet 01-14 00:00: 00 Yes [id number] CHOLESTEROL 1 tablet DAILY 1 tablet DAILY (route: oral) Med Classific ation: Cardiovas cular Therapy Agents bethanechol chloride 25 mg tablet 01-14 00:00: 00 Yes [id number] BLADDER 1 tablet 2 TIMES DAILY 1 tablet 2 TIMES DAILY (route: oral) Med Classific ation: Genitouri nary Therapy Farxiga 10 mg tablet 01-14 00:00: 00 Yes [id number] DM2 1 tablet DAILY 1 tablet DAILY (route: oral) Med Classific ation: Endocrine finasteride 5 mg tablet 01-14 00:00: 00 Yes [id number] BPH 1 tablet DAILY 1 tablet DAILY (route: oral) Med Classific ation: Genitouri nary Therapy gabapentin 400 mg capsule 01-14 00:00: 00 Yes [id number] NERVE PAIN 1 capsule 3 TIMES DAILY 1 capsule 3 TIMES DAILY (route: oral) Med Classific ation: Central Nervous System Agents insulin aspar prot-insuli n aspart 100 unit/mL (70-30) subcchi [facility] s pen 01-14 00:00: 00 01-16 16:23 :30.0 57 No [id number] DM2 2-25 In unit 3 TIMES DAILY 2-25 In unit 3 TIMES DAILY (route: subcutaneo us) Med Classific ation: Endocrine iron 325 mg (65 mg iron) tablet 01-14 00:00: 00 Yes [id number] SUPPLEMENT 1 tablet DAILY 1 tablet DAILY (route: oral) Med Classific ation: Electroly te Balance-N utritiona l Products mecobalamin (vitamin B12) 1,000 mcg chewable tablet 01-14 00:00: 00 Yes [id number] SUPPLEMENT 1 tablet DAILY 1 tablet DAILY (route: oral) Med Classific ation: Electroly te Balance-N utritiona l Products metoprolol succinate ER 100 mg tablet,exte nded release 24 hr 01-14 00:00: 00 02-08 23:59 :00 No [id number] HTN 1 tablet DAILY 1 tablet DAILY (route: oral) Med Classific ation: Cardiovas cular Therapy Agents omeprazole 20 mg capsule,del ayed release 01-14 00:00: 00 02-08 23:59 :00 No [id number] GERD 1 capsule 2 TIMES DAILY 1 capsule 2 TIMES DAILY (route: oral) Med Classific ation: Gastroint estinal Therapy Agents Plavix 75 mg tablet 01-14 00:00: 00 Yes [id number] CLOTING 1 tablet DAILY 1 tablet DAILY (route: oral) Med Classific ation: Hematolog ical Agents tamsulosin 0.4 mg capsule 01-14 00:00: 00 Yes [id number] BPH 1 capsule DAILY 1 capsule DAILY (route: oral) Med Classific ation: Genitouri nary Therapy torsemide 20 mg tablet 01-14 00:00: 00 02-08 23:59 :00 No [id number] EDEMA 1 tablet DAILY 1 tablet DAILY (route: oral) Med Classific ation: Cardiovas cular Therapy Agents tramadol 50 mg tablet 01-14 00:00: 00 Yes [id number] PAIN 0.5 tablet EVERY 6 HOURS 0.5 tablet EVERY 6 HOURS (route: oral) Med Classific ation: Analgesic , Anti-infl ammatory or Antipyret ic Tresiba FlexTouch U-100 insulin 100 unit/mL (3 mL) subcutaneou s pen 01-14 00:00: 00 02-08 23:59 :00 No [id number] DM2 64 In unit DAILY 64 In unit DAILY (route: subcutaneo us) Med Classific ation: Endocrine Trulicity 0.75 mg/0.5 mL subcutaneou s pen injector 01-14 00:00: 00 Yes [id number] DM2 0.5 mL WEEKLY 0.5 mL WEEKLY (route: subcutaneo us) Med Classific ation: Endocrine Zetia 10 mg tablet 01-14 00:00: 00 Yes [id number] CHOLESTEROL 1 tablet DAILY 1 tablet DAILY (route: oral) Med Classific ation: Cardiovas cular Therapy Agents ceftriaxone 1 gram intravenous solution 02-08 00:00: 00 03-08 23:59 :00 No [id number] infection 2 gram DAILY 2 gram DAILY (route: intravenou s) Med Classific ation: Anti-Infe ctive Agents sodium chloride 0.9 % intravenous solution 02-08 00:00: 00 Yes [id number] flush 10 mL DIRECTED 10 mL DIRECTED (route: intravenou s) Med Classific ation: Electroly te Balance-N utritiona l Products heparin, porcine (PF) 10 unit/mL intravenous syringe 02-08 00:00: 00 Yes [id number] flush 5 mL DIRECTED 5 mL DIRECTED (route: intravenou s) Med Classific ation: Hematolog ical Agents carvedilol 6.25 mg tablet 02-08 00:00: 00 Yes [id number] heart 1 tablet 2 TIMES DAILY 1 tablet 2 TIMES DAILY (route: oral) Med Classific ation: Cardiovas cular Therapy Agents Lasix 40 mg tablet 02-08 00:00: 00 Yes [id number] fluid 1 tablet 2 TIMES DAILY 1 tablet 2 TIMES DAILY (route: oral) Med Classific ation: Cardiovas cular Therapy Agents Tresiba U-100 Insulin 100 unit/mL subcutaneou s solution 02-08 00:00: 00 Yes [id number] blood sugar 10 unit BEDTIME 10 unit BEDTIME (route: subcutaneo us) Med Classific ation: Endocrine pantoprazol e 40 mg tablet,shayna yed release 02-08 00:00: 00 Yes [id number] gerd 1 tablet DAILY 1 tablet DAILY (route: oral) Med Classific ation: Gastroint estinal Therapy Agents Aldactone 100 mg tablet 02-08 00:00: 00 Yes [id number] BP 1 tablet DAILY 1 tablet DAILY (route: oral) Med Classific ation: Cardiovas cular Therapy Agents aspirin 81 mg tablet,shayna yed release 02-08 00:00: 00 Yes [id number] ANTICOAGULA NT 1 tablet DAILY 1 tablet DAILY (route: oral) Med Classific ation: Hematolog ical Agents ceftriaxone 2 gram intravenous solution 02-08 00:00: 00 03-08 23:59 :00 No [id number] CERVICAL OSTEOMYELIT IS 2 g DAILY 2 g DAILY (route: intravenou s) Med Classific ation: Anti-Infe ctive Agents Coreg 6.25 mg tablet 02-08 00:00: 00 Yes [id number] BP 1 tablet 2 TIMES DAILY 1 tablet 2 TIMES DAILY (route: oral) Med Classific ation: Cardiovas cular Therapy Agents lactulose 10 gram/15 mL (15 mL) oral solution 02-08 00:00: 00 Yes [id number] LAXATIVE 15 mL NEEDED 15 mL NEEDED (route: oral) Med Classific ation: Gastroint estinal Therapy Agents Lasix 40 mg tablet 02-08 00:00: 00 Yes [id number] DIURETIC 1 tablet DAILY 1 tablet DAILY (route: oral) Med Classific ation: Cardiovas cular Therapy Agents midodrine 10 mg tablet 02-08 00:00: 00 Yes [id number] BP 1 tablet 3 TIMES DAILY 1 tablet 3 TIMES DAILY (route: oral) Med Classific ation: Cardiovas cular Therapy Agents Novolog FlexPen U-100 Insulin aspart 100 unit/mL (3 mL) subcutaneou s 02-08 00:00: 00 Yes [id number] DM2 Per instruc tions BEFORE MEALS Per instructio ns BEFORE MEALS (route: subcutaneo us) Med Classific ation: Endocrine pantoprazol e 40 mg tablet,shayna yed release 02-08 00:00: 00 Yes [id number] REFLUX 1 tablet DAILY 1 tablet DAILY (route: oral) Med Classific ation: Gastroint estinal Therapy Agents Tresiba FlexTouch U-100 insulin 100 unit/mL (3 mL) subcutaneou s pen 02-08 00:00: 00 Yes [id number] DM2 10 unit BEDTIME 10 unit BEDTIME [...] PATIENT REPORTED WEIGHT AND NOTIFY CM / NEURORADIOLOGIST FOR MD NOTIFICATION FOR SIGNS AND SYMPTOMS [...] PATIENT REPORTED WEIGHT AND NOTIFY CM / NEURORADIOLOGIST FOR MD NOTIFICATION FOR SIGNS AND SYMPTOMS OF EXACERBATION (2LB WEIGHT GAIN IN 1 DAY, 5LBS IN A WEEK OR 5 LBS OVER BASELINE); IDENTIFY FALL RISK FACTORS AND ESTABLISH HOME EXERCISE PROGRAM TO MINIMIZE FALL RISK. MAY TEACH THE PATIENT FLOOR RECOVERY WHEN CLINICALLY APPROPRIATE (PT)] Goal 2023-03-12 Patient Goal - CONTINUE TO G ET BETTER Goal 2023-02-08 Patient Goal - CONTINUE TO [...] 2023-01-14 00:00:00 2023-03-12 00:00:00 Outpatient GRETA DELGADO [facility] [id number] 2023-03-12 00:00:00 DISCHARGE TO HOME OR SELF CARE INDEPENDEN T IN THE [facility] OR [facility]- GOALS MET 100.00
[2024-09-30 07:00] LABS: Reflex Lactate? Lactic Acid Added
[2024-09-30] MEDS: Sodium Zirconium Cyclosilicate 10 GM POWD.PACK PO (07:20)
[2024-09-30] MEDS: Albumin Human 25 % 100 ML IV ×3 (07:20→19:58)
--- NOTE | 2024-09-30 07:34 | PC.NURSE ---
Assumed care of patient, BP 69/33. Alert and talking but appears and report feeling sleepy. MD aware with new orders obtained. Medicated per nov, sam cath placed with immediate output of 400mls clear yellow urine. Changed into hospital attire. Patient alert and oriented
[2024-09-30 07:56] LABS: Appearance Urine Clear; Color Urine Yellow; Glucose Urine UA 500 mg/dL (Negative); Leukocyte Esterase Urine Moderate (2+) (Negative); Nitrite Urine Negative (Negative); Specific Gravity - Urine 1.015 (1.005-1.025); UMIC TRIGGER UACC YES; Urine Blood Negative (Negative); Urine Ketones Negative (Negative); Urine Protein Negative (Neg-Trace)
[2024-09-30 08:12] LABS: ~Lactic Acid-LAB USE ONLY 2.1 mmol/L (0.5-2.0)
[2024-09-30 08:15] LABS: Bacteria Urine 4+ (None Seen); Hyaline Casts Urine 0-2 /LPF (0-2); RBC Urine 0-2 /HPF (0-2); UACC Culture Trigger YES; WBC Urine 21-50 /HPF (0-5)
--- NOTE | 2024-09-30 09:03 | P.HPCC_ITS ---
History of Present Illness Date of Service: 09/30/24 Attending physician on admission: Melyssa Franco Chief Complaint: Hypotension Patient is a 79 Y M w/ hyperlipidemia, insulin-dependent diabetes mellitus, c/b CAD, s/p TAVR, ANUJA on CPAP, cirrhosis, c/b ascites, esophageal varices, and prior prostate cancer, initially presenting to emergency department on 09/30 s/p fall; in emergency department, trauma work-up grossly reassuring, though found to have acute on chronic renal insufficiency as well as hypotension, prompting ICU admission Review of Systems 2 Review of Systems: Yes all other systems are reviewed and are negative [facility] Past Medical History Medical History CKD stage 4 due to type 2 diabetes mellitus Heart failure Cirrhosis of liver without ascites Cognitive impairment DMII (diabetes mellitus, type 2) Hyperglycemia Symptomatic anemia Difficulty walking Anemia 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 Streptococcal bacteremia Fracture of left humerus History of prostate cancer Acute lower gastrointestinal bleeding COVID-19 vaccine series completed Hypertension Dyslipidemia Diabetic nephropathy associated with type 2 diabetes mellitus Diabetic 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 associated with type 2 diabetes mellitus 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 Diabetes type 2, uncontrolled Varices of esophagus determined by endoscopy Esophageal varices without bleeding KOEHLER (dyspnea on exertion) Chronic fatigue Iron deficiency anemia CAD (coronary artery disease) ANUJA on CPAP Prostate cancer Spinal stenosis On beta kayy at home IBS (irritable colon syndrome) Aortic stenosis HTN (hypertension) Polyneuropathy GERD (gastroesophageal reflux disease) Family History Family History Father CVD (cardiovascular disease) Past heart attack Mother CVD (cardiovascular disease) Brain cancer Heart problem Daughter Breast cancer Sister Breast cancer Son Alive and well Family/Other Myocardial infarction Liver cancer Surgical History Surgical History S/P infectious endocarditis H/O cataract extraction Hx of endoscopy History of colonoscopy Hx of esophagogastroduodenoscopy Hx of colonoscopy History of surgery History of transurethral resection of prostate History of surgery History of heart artery stent Social History Social History Household Members: Spouse Household Members Other:: Myesha Housing: House Are you a primary home care nurse to a significant other at home: No Do you presently have visiting nurse or other home services: Yes Alcohol intake: never Patient Tobacco Use Status: Never used Tobacco Smoked in Last 30 Days: No e-Cigarette/Vaping Use: Never Used Second Hand Smoke Exposure: No Use of substances other than those prescribed or required for medical reasons: No Advance Directives: Yes Advance Directives on File: Yes Advance Directives Date on File: 08/31/23 Do you have a plan to hurt others: No Plan service: No Current occupational status: retired Cognitive needs: No Hearing needs: No Vision needs: Yes Meds Allergies Allergy/AdvReac Type Severity Reaction Status Date / Time KARL Inhibitors Allergy Severe Angioedema Verified 09/30/24 05:01 dextran 40 [DEXTRAN 40] Allergy Intermediate tachycardia Verified 09/30/24 05:01 latex [LATEX] Allergy Mild BLISTERS Verified 09/30/24 05:01 lisinopril [From Zestril] Allergy Mild Unknown Verified 09/30/24 05:01 Iodinated Contrast Media Allergy Unknown UNKNOWN Verified 09/30/24 05:01 [CONTRAST,IV] Active Medications: Current Medications Atorvastatin Calcium (Atorvastatin Calcium 40 Mg Tablet) 40 mg PO BEDTIME PAFNILO Bumetanide (Bumetanide 1 Mg/4 Ml Vial) 1 mg IVPUSH BID PANFILO; Protocol Ceftriaxone Sodium (Ceftriaxone Sodium 2 Gm Vial) 2 gm IVPUSH DAILY PANFILO Finasteride (Finasteride 5 Mg Tablet) 5 mg PO DAILY PANFILO Glucose (Glucose Gel 15 Gm Gel..Gram.) 15 gm PO Q15M PRN; Protocol PRN Reason: per Hypoglycemia Standing Ord. Albumin Human (Kedbumin 25 %) 100 mls @ 100 mls/hr IV Q1H [facility] Stop: 09/30/24 09:14 Last Admin: 09/30/24 08:19 Dose: 100 mls/hr Norepinephrine Bitartrate (Levophed) 8 mg in 250 mls @ 0 mls/hr IV .Q0M PANFILO; Protocol Calcium Gluconate (Calcium Gluconate) 1 gm in 50 mls @ 50 mls/hr IV ONCE ONE Stop: 09/30/24 09:53 Dextrose (D10) 250 mls @ 750 mls/hr IV Q15M PRN; Protocol PRN Reason: per Hypoglycemia Standing Ord. Insulin Human Lispro (Insulin Lispro 100 Unit/Ml 3 Ml Vial) 0 unit SUBCUT QIDACHS [facility]; Protocol Lactulose (Lactulose 20 Gm/30 Ml Solution) 30 gm PO BID ONE Stop: 09/30/24 08:57 Midodrine (Midodrine Hcl 10 Mg Tablet) 10 mg PO TID [facility] Pantoprazole Sodium (Pantoprazole Sodium 40 Mg/10 Ml Vial) 40 mg IVPUSH DAILY [facility] Rifaximin (Rifaximin 550 Mg Tablet) 550 mg PO BID [facility] Tamsulosin HCl (Tamsulosin Hcl 0.4 Mg Capsule) 0.4 mg PO DAILY [facility] Home Medications ?Medication ?Instructions ?Recorded ?Confirmed ?Last Taken ?Type lactulose 10 gram/15 mL oral 30 ml PO BID 04/14/24 09/08/24 08/15/24 History solution insulin degludec 100 unit/mL (3 6 unit subcut BEDTIME 08/17/24 09/08/24 08/15/24 History mL) subcutaneous pen (Tresiba FlexTouch U-100 insulin) Physical Exam 2 Vital Signs: Vital Signs: Last Vital Signs Temp 97 F 09/30/24 04:55 Pulse 68 09/30/24 08:41 Resp 18 09/30/24 08:41 BP 79/34 L 09/30/24 08:41 Pulse Ox 92 09/30/24 08:00 O2 Del Method Room Air 09/30/24 08:00 BMI result Body Mass Index 28.3 Const: General: cooperative, no acute distress, well developed, alert, awake and Physically active Orientation/consciousness: patient oriented x3 HEENT: Head: Yes normal to inspection, Yes normocephalic and Yes atraumatic Eyes: General: appearance normal, both eyes and all related structures Neck: Neck: Yes normal visual inspection, Yes full ROM, Yes no meningeal signs, Yes trachea midline and Yes supple Chest: Chest palpation & inspection: normal inspection of the chest Resp: Other: no appreciable, rales, rhonchi, wheezing Effort & Inspection: normal respiratory effort Cardio: Rate: regular rate Rhythm: regular rhythm GI: Other: distended, though compressible; appreciable mild tenderness to palpation throughout; no appreciable guarding, rebound Skin: General skin exam: no rashes or lesions noted Neuro: General: patient oriented x3, tone normal, moves all extremities, no meningeal signs and no focal motor deficits Extrem: General: Yes normal to inspection, Yes full ROM, Yes capillary refill normal and Yes no clubbing, cyanosis or edema Psych: Appearance: grossly normal Results Labs 09/30/24 04:49 09/30/24 04:50 Labs: Laboratory Results - last 24 hr 09/30/24 09/30/24 09/30/24 04:49 04:50 04:51 MCV 90.0 MCH 27.2 MCHC 30.3 L RDW 15.7 Plt Count 137 L MPV 11.4 Immature Gran % (Auto) 0.4 Neut % (Auto) 87.2 H Lymph % (Auto) 1.8 L [place] % (Auto) 10.2 Eos % (Auto) 0.0 Baso % (Auto) 0.4 Lymph # (Auto) 0.2 L [place] # (Auto) 0.9 Eos # (Auto) 0.0 Baso # (Auto) 0.0 Abs Immat Gran (auto) 0.04 H Absolute Neuts (auto) 7.8 Absolute Nucleated RBC 0.000 Nucleated RBC % (auto) 0.0 PT 21.2 H D INR 1.8 H VBG pH VBG pCO2 VBG pO2 VBG HCO3 VBG O2 Saturation VBG Base Excess Anion Gap 18 Estim Creat Clear Calc 19.9 Estimated GFR 19 Random Glucose 152 H Lactic Acid Lactic Acid F/U @ 2Hr Calcium 7.8 L Total Bilirubin 1.7 H AST 45 H ALT 18 Alkaline Phosphatase 180 H Total Creatine Kinase 142 Troponin I High Sens 11.8 B-Natriuretic Peptide Total Protein 6.0 L Albumin 2.2 L Urine Color Urine Appearance Urine pH Ur Specific [place] Urine Protein Urine Glucose (UA) Urine Ketones Urine Blood Urine Nitrite Ur Leukocyte Esterase Urine RBC Urine WBC Ur Squamous Epith Cells Urine Bacteria Hyaline Casts COVID-19 (MAJOR) COVID-19 Clin Com Influenza Type A (MARYAM) Influenza Type B (MARYAM) Influenza A & B Note 09/30/24 09/30/24 09/30/24 04:52 04:55 04:59 MCV MCH MCHC RDW Plt Count MPV Immature Gran % (Auto) Neut % (Auto) Lymph % (Auto) [place] % (Auto) Eos % (Auto) Baso % (Auto) Lymph # (Auto) [place] # (Auto) Eos # (Auto) Baso # (Auto) Abs Immat Gran (auto) Absolute Neuts (auto) Absolute Nucleated RBC Nucleated RBC % (auto) PT INR VBG pH 7.29 L VBG pCO2 44 VBG pO2 28 VBG HCO3 21 L VBG O2 Saturation < 30.0 VBG Base Excess -4.8 Anion Gap Estim Creat Clear Calc Estimated GFR Random Glucose Lactic Acid 2.8 H* Lactic Acid F/U @ 2Hr Calcium Total Bilirubin AST ALT Alkaline Phosphatase Total Creatine Kinase Troponin I High Sens B-Natriuretic Peptide 635 H Total Protein Albumin Urine Color Urine Appearance Urine pH Ur Specific [place] Urine Protein Urine Glucose (UA) Urine Ketones Urine Blood Urine Nitrite Ur Leukocyte Esterase Urine RBC Urine WBC Ur Squamous Epith Cells Urine Bacteria Hyaline Casts COVID-19 (MAJOR) Negative COVID-19 Consult A Doctor Com See Note Influenza Type A (MARYAM) Negative Influenza Type B (MARYAM) Negative Influenza A & B Note See Note 09/30/24 07:48 MCV MCH MCHC RDW Plt Count MPV Immature Gran % (Auto) Neut % (Auto) Lymph % (Auto) [place] % (Auto) Eos % (Auto) Baso % (Auto) Lymph # (Auto) [place] # (Auto) Eos # (Auto) Baso # (Auto) Abs Immat Gran (auto) Absolute Neuts (auto) Absolute Nucleated RBC Nucleated RBC % (auto) PT INR VBG pH VBG pCO2 VBG pO2 VBG HCO3 VBG O2 Saturation VBG Base Excess Anion Gap Estim Creat Clear Calc Estimated GFR Random Glucose Lactic Acid Lactic Acid F/U @ 2Hr 2.1 H* Calcium Total Bilirubin AST ALT Alkaline Phosphatase Total Creatine Kinase Troponin I High Sens B-Natriuretic Peptide Total Protein Albumin Urine Color Yellow Urine Appearance Clear Urine pH 5.0 Ur Specific [place] 1.015 Urine Protein Negative Urine Glucose (UA) 500 H Urine Ketones Negative Urine Blood Negative Urine Nitrite Negative Ur Leukocyte Esterase Moderate (2+) H Urine RBC 0-2 Urine WBC 21-50 H Ur Squamous Epith Cells 3-5 Urine Bacteria 4+ Hyaline Casts 0-2 COVID-19 (MAJOR) COVID-19 Consult A Doctor Com Influenza Type A (MARYAM) Influenza Type B (MARYAM) Influenza A & B Note Assessment and Plan (1) Acute on chronic renal insufficiency: Status: Acute (2) Cirrhosis: Status: Acute Plan Patient is a 79 Y M w/ hyperlipidemia, insulin-dependent diabetes mellitus, c/b CAD, s/p TAVR, ANUJA on CPAP, cirrhosis, c/b ascites, esophageal varices, and prior prostate cancer, initially presenting to emergency department on 09/30 s/p fall; in emergency department, trauma work-up grossly reassuring, though found to have acute on chronic renal insufficiency as well as hypotension, prompting ICU admission N: no acute issues; empiric lactulose, rifaximin CV: hypotension, unclear etiology; home midodrine, norepinephrine gtt, wean as tolerated; CAD, s/p TAVR R: no acute issues GI: cirrhosis, c/b ascites, esophageal varices; to maintain high suspicion for decompensation; empiric ceftriaxone for possible spontaneous bacterial peritonitis : acute on chronic renal insufficiency, possibly d/t decompensated cirrhosis, c/f hepato-renal syndrome; to monitor renal indices, electrolytes very closely; direusis as tolerated H: anemia, thrombocytopenia; to monitor closely; to avoid chemical DVT prophylaxis PLT < 50 or c/f hemorrhage ID: empiric ceftriaxone for possibel spontaneous bacterial peritonitis E: insulin-dependent diabetes mellitus; insulin sliding scale; to follow-up random cortisol, TSH/T4 P: no acute issues
[2024-09-30] MEDS: Norepinephrine Bitartrate/D5W 8 MG/250 ML PLAST..BAG 8.14 MG IV (09:21)
[2024-09-30] MEDS: Sodium Bicarbonate 8.4% 50 MEQ/50 ML SYRINGE IVPUSH ×2 (09:25→15:31)
[2024-09-30] MEDS: cefTRIAXone sodium 1 GM VIAL IVPUSH (09:27)
[2024-09-30] MEDS: Calcium Gluconate/NaCl,Iso-Osm 1 GM/50 ML PLAST..BAG IV ×2 (09:28→20:01)
--- NOTE | 2024-09-30 09:46 | PC.NURSE ---
MD aware of BP stating okay to give IV push lasiks one levophed is started
[2024-09-30 09:53] LABS: Reflex Lactate? 2 Y
[2024-09-30] MEDS: Furosemide 20 MG/2 ML VIAL 10 MG IVPUSH (09:57)
--- NOTE | 2024-09-30 09:59 | PC.NURSE ---
Report given to Lena in ICU
--- NOTE | 2024-09-30 10:17 | PC.NURSE ---
Transported to ICU
[2024-09-30] MEDS: Tamsulosin HCL 0.4 MG CAPSULE PO (11:44)
[2024-09-30] MEDS: Pantoprazole Sodium 40 MG/10 ML VIAL IVPUSH (11:44)
[2024-09-30] MEDS: Lactulose 20 GM/30 ML SOLUTION PO (11:44)
[2024-09-30] MEDS: Heparin Sodium,Porcine 5,000 UNIT/ML VIAL 5000 UNIT SUBCUT (11:44)
[2024-09-30] MEDS: Finasteride 5 MG TABLET PO (11:45)
[2024-09-30] MEDS: rifAXIMin 550 MG TABLET PO (11:45)
[2024-09-30 11:49] LABS: Glucose, Whole Blood 155 mg/dL (60-115)
--- NOTE | 2024-09-30 12:04 | PHA.MEDREC ---
Pharmacy Consult ? Medication Reconciliation Pharmacy has completed the medication reconciliation. Spoke to patient to confirm medication list. Patient said he takes whatever is in the bubble pack (filled by [facility]). He confirmed that he injects trulicity on Mondays, 6 units of tresiba at bedtime and uses admelog tid per sliding scale. He said last dose of medications was thursday09/28/24. I also called [facility] [phone] and spoke to Jewell (pharmaceutical operator) to verify all meds' info.
[2024-09-30 12:08] LABS: MANUAL DIFF FLAG NO
[2024-09-30 12:13] LABS: Basophils Percent Auto 0.3 % (0-2); Eosinophils Percent Auto 0.2 % (0-4); Hematocrit 27.6 % (42.0-52.0); Hemoglobin 8.5 g/dl (14.0-18.0); Imm Gran Abs Auto 0.05 X10*3/uL (0.00-0.03); Imm Gran Pct Auto 0.4 % (0.0-0.4); Lymphocytes Absolute Auto 0.2 X10*3/uL (1.2-4.9); Lymphocytes Percent Auto 1.4 % (20-40); Mean Corpuscular HGB Conc 30.8 g/dl (31.0-36.0); Mean Corpuscular Hemoglobin 27.7 pg (27.0-33.0); Mean Corpuscular Volume 89.9 fL (80.0-98.0); Mean Platelet Volume 11.5 fL (9.4-12.4); Monocytes Absolute Auto 1.2 X10*3/uL (0.1-1.2); Monocytes Percent Auto 9.6 % (2-11); Neutrophils Absolute Auto 11.3 x10*3/uL (2.0-8.3); Neutrophils Percent Auto 88.1 % (45-73); Platelet Count 144 X10*3/uL (160-400); Red Blood Count 3.07 X10*6/uL (4.60-5.80); Red Cell Distribution Width 15.8 % (11.0-16.0); White Blood Count 12.8 X10*3/uL (4.8-10.8)
[2024-09-30 12:17] LABS: Ammonia 57 umol/L (13-55)
[2024-09-30] MEDS: Insulin Lispro 100 UNIT/ML 3 ML VIAL SUBCUT ×2 (12:17→17:50)
[2024-09-30 12:25] LABS: Anion Gap 15 (12-20); Blood Urea Nitrogen 85 mg/dL (9-16); Carbon Dioxide 18 mmol/L (22-29); Chloride 102 mmol/L (96-108); Estimated Glomerular Filt Rate 20; Glucose Random 162 mg/dL (60-115); Magnesium 2.3 mg/dL (1.6-2.6); Phosphorus 6.2 mg/dL (2.7-4.5); Potassium 5.2 mmol/L (3.3-5.1); Sodium 130 mmol/L (135-145); ~Lactic Acid-LAB USE ONLY 1.7 mmol/L (0.5-2.0)
[2024-09-30 12:29] LABS: Cortisol Random 24.6 ug/dL
[2024-09-30 12:46] LABS: TSH reflex Free T4 2.11 uIU/mL (0.32-4.0)
--- NOTE | 2024-09-30 13:54 | W.MHC.ACPN ---
Advanced Care Planning Note Advanced Care Planning Note Discussed with: patient and family member(s) Time spent (in minutes): 60 Narrative: I met Mr. Lopes's , son and healthcare proxy, and [id number] at the bedside; we discussed Mr. Lopes's emergency department and ICU course; we discussed that we are still gathering data to help determine the cause of Mr. Ngs hypotension, though believe that it is likely infection from a urinary source, though may be from many other sources including intra-abdominal; they expressed understanding of this; we then discussed Mr. Lopes's code status; Mr. Lopes stated that in the event his heart were to stop beating, he would not want CPR, stating that he has lived a long life and has loved his family deeply, and is ready to see his daughter who from cancer, in [facility]; when asked if Mr. Lopes would ever want a breathing tube/be placed on the ventilator, Mr. Lopes stated no; Mr. Ngs code status was changed to DNR/DNI; we discussed central lines, which Mr. Lopes stated he was ammendable to Problems Discussed (1) Acute on chronic renal insufficiency: (2) Cirrhosis:
[2024-09-30] MEDS: Midazolam HCl 2 MG/2 ML VIAL IVPUSH (14:15)
--- NOTE | 2024-09-30 14:37 | W.PM.CCHP ---
Procedures Date of Service Date of Service: 09/30/24 Central Line Placement Right IJ: Consent for Procedure: Elective - informed consent obtained Time out performed: Yes Sterile Technique Used: Yes Patient placed on monitor/pulse ox: Yes prep: mask, gown and gloves Central line prep: Chlorhexidine scrub Ultrasound used for placement: Yes Central line lumen inserted: triple Post procedure: sutured in place, good blood return, all ports aspirated, flushed, capped and sterile dressing applied Patient tolerated procedure: well Complications: none (awaiting chest x-ray)
[2024-09-30] MEDS: Piperacillin Sodium/Tazobactam 3.375 GM in 0.9 % Sodium Chloride 50 ML IV ×2 (15:02→21:51)
[2024-09-30] MEDS: vancomycin/NS 2,000 MG/500 ML PLAST..BAG 250 MG IV (15:03)
[2024-09-30] MEDS: Vasopressin 20 UNIT/100 ML INFUS..BTL 12 UNIT IVCONT ×2 (15:04→20:21)
[2024-09-30] MEDS: Calcium Chloride 1 GM/10 ML SYRINGE IVPUSH (15:31)
[2024-09-30] MEDS: Hydrocortisone Sod Succ/PF 100 MG VIAL 50 MG IVPUSH ×2 (15:32→20:04)
[2024-09-30] MEDS: Norepinephrine Bitartrate/D5W 8 MG/250 ML PLAST..BAG 50.45 MG IV ×2 (15:54→20:19)
[2024-09-30 16:30] LABS: Glucose, Whole Blood 171 mg/dL (60-115)
--- NOTE | 2024-09-30 17:00 | CA_ITS ---
Transthoracic Echocardiogram Patient (Last, First, Middle): Kwaku Lopes C Gender: Male Date of : 1945 Age: 79 Procedure Date: 09/30/2024 Procedure Type: Transthoracic Echocardiogram Location: ICU Height: 175.26 cm Weight: 86.64 kg BSA: 2.03 m2 Heart Rate: bpm BP: 103 / 45 mmHg Farm Specialist: TO Referring MD: Melyssa Franco MD Symptoms: Hypoxia, Please Assess Function Study Quality: Fair Conclusions: - Normal left ventricular cavity size. The left ventricular systolic function is mildly decreased. The visually estimated ejection fraction is between 40-45%. - Elevated filling pressures. There is severe septal asymmetric hypertrophy. - Mildly increased right ventricular cavity size. There is mildly decreased right ventricular systolic function. - A bioprosthetic aortic valve is present. - There is mild aortic valve regurgitation. Findings Left Ventricle Normal left ventricular cavity size. The left ventricular systolic function is mildly decreased. The visually estimated ejection fraction is between 40 45%. There is no evidence of regional wall motion abnormalities. There is paradoxical septal motion consistent with a left bundle branch block. Abnormal diastolic function is noted. Spectral Doppler is indicative of a pseudonormal filling pattern. Elevated filling pressures. There is severe septal asymmetric hypertrophy. Right Ventricle Mildly increased right ventricular cavity size. There is mildly decreased right ventricular systolic function. Atria The left atrium is moderately dilated. The right atrium is moderately dilated. Aortic Valve A bioprosthetic aortic valve is present. The prosthetic aortic valve appears to be functioning normally. There is mild calcification of the aortic valve. There is mild aortic valve stenosis. There is mild aortic valve regurgitation. Mitral Valve The mitral valve appears normal. There is trace mitral valve regurgitation. There is no mitral valve stenosis. Pulmonic Valve The pulmonic valve is likely normal. Tricuspid Valve Normal tricuspid valve structure. There is moderate tricuspid valve regurgitation. The right ventricular systolic pressure is 41 mmHg. Normal right atrial pressure. Mild pulmonary hypertension is present. Great Vessels All visible segments of the aorta are normal in size. Venous The inferior vena cava is normal in size and collapses greater than 50% with inspiration. Pericardium/Pleural There is no evidence of pericardial effusion. Measurements 2D Linear Measurements IVSd: 1.55 0.6-0.9/0.6-1.0 cm LVIDd: 5.28 3.9-5.3/4.2-5.9 cm LVIDd Index: 2.60 2.4-3.2/2.2-3.1 cm/m2 LVIDs: 3.64 2.0-3.6 cm LVPWd: 1.08 0.7-1.1 cm LA Diam: 4.60 2.7-3.8/3.0-4.0 cm LAIDs Index: 2.27 1.5-2.3 cm/m2 LV Mass: 361.62 67-162/88-224 g LV Mass Index: 178.14 43-95/49-115 g/m2 LVOT Diam: 2.00 3.0+(-)1.3 cm 2D Systolic Function EF 4C: 46.50 >55% EF 2C: 50.20 >55% EF BiP: 48.30 >55% Mitral Valve MV VTI: 0.48 MV Pk Mario: 1.50 MV Mn Mario: 0.96 MV Pk Grad: 9.00 MV Mn Grad: 4.00 MV Pk E: 1.27 MV PK A: 1.03 MV Decel Time: 247.00 E/A: 1.20 E'Lateral: 4.57 E'Medial: 4.24 E/E' Med: 30.00 E/E' Lat: 27.80 PHT: 72.00 MVA PHT: 3.06 MVA Continuity: 1.59 Decel Davidson: 5.13 Aortic Valve AoV Pk Mario: 2.47 AoV Mn Mario: 1.85 AoV VTI: 0.64 AoV Pk Grad: 24.00 Aov Mn Grad: 15.00 MOUNIKA Cont.VTI: 1.20 AI Pk Mario: 2.85 AI Davidson: 1.64 LVOT LVOT Pk Mario: 1.03 LVOT Mn Mario: 0.71 LVOT VTI: 0.24 LVOT Pk Grad: 4.00 LVOT Mn Grad: 2.00 LVOT Diam: 2.00 LVOT Area: 3.14 Diastolic Function MV Pk E: 1.27 MV Pk A: 1.03 E/A: 1.20 E'Medial: 4.24 E/E' Med: 30.00 E' Laterial: 4.57 E/E' Lat: 27.80 Right Ventricle TAPSE (mm): 20.30 TVS' Mario: 13.60 Tricuspid Valve TR Pk Mario: 3.07 TR Pk Grad: 38.00 RA Press: 3.00 RVSP: 41.00 Great Vessels Aorta Sinus of Valsalva: 3.92 2.0-3.[address] [place]: 2.70 1.7-3.4 cm Ao Asc: 3.30 2.1-3.4 cm Updated in Other Vendor System with Status of Final Sy Vickers MD electronically signed on 09/30/2024 7:18:06 PM with status of Final
[2024-09-30] MEDS: Sodium Bicarbonate 8.4% 150 MEQ in Dextrose 5 % 850 ML 50 MEQ IV (17:51)
[2024-09-30 19:12] LABS: VBG Base Excess -3.7 mmol/L; VBG HCO3 21 mmol/L (22-26); VBG pCO2 40 mmHg; VBG pH 7.33 (7.32-7.43); VBG pO2 55 mmHg
[2024-09-30 19:15] LABS: Venous Blood Gas Refer to POC result
[2024-09-30 19:16] LABS: Hematocrit 25.9 % (42.0-52.0); Hemoglobin 8.2 g/dl (14.0-18.0); Mean Corpuscular HGB Conc 31.7 g/dl (31.0-36.0); Mean Corpuscular Hemoglobin 27.8 pg (27.0-33.0); Mean Corpuscular Volume 87.8 fL (80.0-98.0); Platelet Count 179 X10*3/uL (160-400); Red Blood Count 2.95 X10*6/uL (4.60-5.80); Red Cell Distribution Width 15.9 % (11.0-16.0); White Blood Count 18.4 X10*3/uL (4.8-10.8)
[2024-09-30 19:26] LABS: Lactic Acid 1.3 mmol/L (0.5-2.0)
[2024-09-30 19:27] LABS: Alanine Aminotransferase 18 U/L (0-40); Albumin Level 2.6 g/dL (3.5-5.0); Alkaline Phosphatase 155 U/L (39-117); Anion Gap 13 (12-20); Aspartate Amino Transferase 38 U/L (5-37); Blood Urea Nitrogen 76 mg/dL (9-16); Calcium 7.4 mg/dL (8.4-10.2); Carbon Dioxide 20 mmol/L (22-29); Chloride 102 mmol/L (96-108); Creatinine Clr Calc Pharmacy 21.3; Estimated Glomerular Filt Rate 20; Glucose Random 212 mg/dL (60-115); Magnesium 2.3 mg/dL (1.6-2.6); Phosphorus 6.4 mg/dL (2.7-4.5); Potassium 5.2 mmol/L (3.3-5.1); Sodium 130 mmol/L (135-145); Total Protein 5.9 g/dL (6.5-8.0)
[2024-09-30 19:51] LABS: Band Neutrophils Percent 28 % (3-5); Lymphocytes Absolute Manual 0.2 X10*3/uL (1.2-4.9); Lymphocytes Percent Manual 1 % (20-40); Monocytes Absolute Manual 0.4 X10*3/uL (0.1-1.2); Monocytes Percent Manual 2 % (2-11); Neutrophils Absolute Manual 17.8 X10*3/uL (2.0-8.3); Neutrophils Percent Manual 69 % (45-73)
[2024-09-30 19:52] LABS: Acanthocytes 2+ (3-5) /OIF; Burr Cells 2+ (3-5) /OIF; Dohle Bodies PRESENT; RBC Morphology NOTED; Schistocytes 1+ (0-2) /OIF; Toxic Vacuolation PRESENT
[2024-09-30 19:53] LABS: Platelet Estimate NORMAL (NORMAL); Platelet Morphology Comment NORM
--- NOTE | 2024-09-30 19:55 | PM.CNGS ---
History of Present Illness Consult details Consult date: 09/30/24 Reason for consult: abdominal pain Narrative: The pt. is an 79 yo man with a significant number of comorbidities incl. advanced cirrhosis with ascities and esophageal varices,hp,CRI, hepatic encephalopathy,DM ,hypertension,hx of treated with TAVR ,CAD,on whom surgical consult was obtained for ? GB infection. Patient has had ultrasound which was subsequently followed by CT scan demonstrating acute gallbladder pathology. Also significant ascites consistent with the patient's advanced liver disease/cirrhosis. Collateral history was also obtained from patient's significant other who was present. Chart was reviewed and patient evaluated. Patient has as noted above many intercurrent medical problems and medical issues. 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 Streptococcal bacteremia Fracture of left humerus History of prostate cancer Acute lower gastrointestinal bleeding COVID-19 vaccine series completed Hypertension Dyslipidemia Diabetic nephropathy associated with type 2 diabetes mellitus Diabetic 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 associated with type 2 diabetes mellitus skilled nursing (current) use of insulin Diabetes type 2, uncontrolled Varices of esophagus determined by endoscopy Esophageal varices without bleeding KOEHLER (dyspnea on exertion) Chronic fatigue Iron deficiency anemia CAD (coronary artery disease) ANUJA on CPAP Prostate cancer Spinal stenosis On beta kayy at home IBS (irritable colon syndrome) Aortic stenosis HTN (hypertension) Polyneuropathy GERD (gastroesophageal reflux disease) Family History Family History Father CVD (cardiovascular disease) Past heart attack Mother CVD (cardiovascular disease) Brain cancer Heart problem Daughter Breast cancer Sister Breast cancer Son Alive and well Family/Other Myocardial infarction Liver cancer Surgical History Surgical History S/P infectious endocarditis H/O cataract extraction Hx of endoscopy History of colonoscopy Hx of esophagogastroduodenoscopy Hx of colonoscopy History of surgery History of transurethral resection of prostate History of surgery History of heart artery stent Social History Social History Household Members: Spouse Household Members Other:: Myesha Housing: House Are you a primary career services director to a significant other at home: No Do you presently have visiting nurse or other home services: Yes ([facility]) Alcohol intake: never Patient Tobacco Use Status: Never used Tobacco Smoked in Last 30 Days: No e-Cigarette/Vaping Use: Never Used Second Hand Smoke Exposure: No Use of substances other than those prescribed or required for medical reasons: No Currently Displaying Signs/Symptoms of Drug Intoxication Withdrawal: No Have you been hit, kicked, punched, or otherwise hurt by someone within the past year? If so, by whom?: No Do you feel safe in your current relationship?: No Is there a partner from a previous relationship who is making you feel unsafe now?: No Spiritual Healthcare Practices: Rastafarian Advance Directives: Yes Advance Directives on File: Yes Advance Directives Date on File: 08/31/23 Do you have a plan to hurt others: No Plan Recently lost weight without trying: No Nutrition Risks: No Nutritional Risk service: No Current occupational status: retired Cognitive needs: No Hearing needs: No Vision needs: Yes Meds Allergies Allergy/AdvReac Type Severity Reaction Status Date / Time KARL Inhibitors Allergy Severe Angioedema Verified 09/30/24 05:01 dextran 40 [DEXTRAN 40] Allergy Intermediate tachycardia Verified 09/30/24 05:01 latex [LATEX] Allergy Mild BLISTERS Verified 09/30/24 05:01 lisinopril [From Zestril] Allergy Mild Unknown Verified 09/30/24 05:01 Iodinated Contrast Media Allergy Unknown UNKNOWN Verified 09/30/24 05:01 [CONTRAST,IV] Active Medications: Current Medications Atorvastatin Calcium (Atorvastatin Calcium 40 Mg Tablet) 40 mg PO BEDTIME [facility] Last Admin: 09/30/24 19:48 Dose: Not Given Bumetanide (Bumetanide 1 Mg/4 Ml Vial) 1 mg IVPUSH BID [facility]; Protocol Finasteride (Finasteride 5 Mg Tablet) 5 mg PO DAILY [facility] Last Admin: 09/30/24 11:45 Dose: 5 mg Glucose (Glucose Gel 15 Gm Gel..Gram.) 15 gm PO Q15M PRN; Protocol PRN Reason: per Hypoglycemia Standing Ord. Heparin Sodium (Porcine) (Heparin Sodium,Porcine 5,000 Unit/Ml Vial) 5,000 unit SUBCUT Q8H [facility] Last Admin: 09/30/24 19:42 Dose: Not Given Hydrocortisone Sodium Succinate (Hydrocortisone Sod Succ/Pf 100 Mg Vial) 50 mg IVPUSH Q6H [facility] Last Admin: 09/30/24 15:32 Dose: 50 mg Norepinephrine Bitartrate (Levophed) 8 mg in 250 mls @ 0 mls/hr IV .Q0M PANFIL[facility]; Protocol Last Admin: 09/30/24 15:54 Dose: 0.31 mcg/kg/min, 50.45 mls/hr Dextrose (D10) 250 mls @ 750 mls/hr IV Q15M PRN; Protocol PRN Reason: per Hypoglycemia Standing Ord. Piperacillin Sod/Tazobactam (Sod 3.375 gm/ Sodium Chloride) 50 mls @ 100 mls/hr IV Q8H [facility] Last Infusion: 09/30/24 15:35 Dose: Infused Vasopressin (Vasostrict) 20 unit in 100 mls @ 12 mls/hr IVCONT .Q8H20M [facility] Last Admin: 09/30/24 15:04 Dose: 0.04 unit/min, 12 mls/hr Vancomycin HCl 500 mg/ Sodium (Chloride) 110 mls @ 110 mls/hr IV Q24H [facility] Sodium Bicarbonate 150 meq/ (Dextrose) 1,000 mls @ 50 mls/hr IV .Q20H [facility] Last Admin: 09/30/24 17:51 Dose: 50 mls/hr Albumin Human (Kedbumin 25 %) 100 mls @ 100 mls/hr IV Q6H [facility] Stop: 10/01/24 14:59 Dextrose (D10) 250 mls @ 750 mls/hr IV Q15M PRN PRN Reason: per Hypoglycemia Standing Ord. Calcium Gluconate (Calcium Gluconate) 1 gm in 50 mls @ 50 mls/hr IV ONCE ONE Stop: 09/30/24 20:43 Insulin Human Lispro (Insulin Lispro 100 Unit/Ml 3 Ml Vial) 0 unit SUBCUT QIDACHS [facility]; Protocol Last Admin: 09/30/24 17:50 Dose: 2 unit Lactulose (Lactulose 20 Gm/30 Ml Solution) 20 gm PO BID [facility] Last Admin: 09/30/24 19:48 Dose: Not Given Pantoprazole Sodium (Pantoprazole Sodium 40 Mg/10 Ml Vial) 40 mg IVPUSH DAILY [facility] Last Admin: 09/30/24 11:44 Dose: 40 mg Pharmacy Consult (Consult Rx Vancomycin Dosing) 1 each MISCELLANE DAILY PRN PRN Reason: Consult order Rifaximin (Rifaximin 550 Mg Tablet) 550 mg PO BID [facility] Last Admin: 09/30/24 19:49 Dose: Not Given Tamsulosin HCl (Tamsulosin Hcl 0.4 Mg Capsule) 0.4 mg PO DAILY [facility] Last Admin: 09/30/24 11:44 Dose: 0.4 mg Home Medications ?Medication ?Instructions ?Recorded ?Confirmed ?Last Taken ?Type lactulose 10 gram/15 mL oral 30 ml PO BID 04/14/24 09/30/24 09/28/24 History solution insulin degludec 100 unit/mL (3 6 unit subcut BEDTIME 08/17/24 09/30/24 09/28/24 History mL) subcutaneous pen (Tresiba FlexTouch U-100 insulin) tamsulosin 0.4 mg capsule 0.4 mg PO BEDTIME 09/30/24 09/30/24 09/28/24 History Physical Exam Vital Signs: Vital Signs: Last Vital Signs Temp 98.4 F 09/30/24 16:00 Pulse 63 09/30/24 19:00 Resp 18 09/30/24 19:00 BP 118/46 L 09/30/24 19:00 Pulse Ox 95 09/30/24 19:00 O2 Del Method Nasal Cannula 09/30/24 19:00 O2 Flow Rate 5 09/30/24 19:00 BMI result Body Mass Index 28.3 Const: Other: Currently patient was on significant restorative measures and a variety of pressor agents. He is somewhat confused/confabulating which may be his baseline but this is my 1st time encountering with him. He has a history of hepatic encephalopathy. As noted above his significant other offered some collateral history. GI: Other: Massively distended abdomen, consistent with some with the advanced liver disease and ascites.. Right Upper abdominal tenderness but no evidence of any guarding, rebound, or rigidity. Results Labs 09/30/24 19:02 09/30/24 19:02 Labs: Abnormal lab results 09/30/24 09/30/24 09/30/24 Range/Units 04:49 04:50 04:52 WBC (4.8-10.8) X10*3/uL RBC 3.01 L D (4.60-5.80) X10*6/uL Hgb 8.2 L (14.0-18.0) g/dl Hct 27.1 L D (42.0-52.0) % MCHC 30.3 L (31.0-36.0) g/dl Plt Count 137 L (160-400) X10*3/uL Neut % (Auto) 87.2 H (45-73) % Lymph % (Auto) 1.8 L (20-40) % Lymph # (Auto) 0.2 L (1.2-4.9) X10*3/uL Abs Immat Gran (auto) 0.04 H (0.00-0.03) X10*3/uL Absolute Neuts (auto) (2.0-8.3) x10*3/uL Band Neutrophils % (3-5) % Lymphocytes % (Manual) (20-40) % Abs Neuts (Manual) (2.0-8.3) X10*3/uL Lymphocytes # (Manual) (1.2-4.9) X10*3/uL PT 21.2 H D (10.9-12.4) SEC INR 1.8 H (0.9-1.1) VBG pH (7.32-7.43) VBG HCO3 (22-26) mmol/L Sodium 131 L (135-145) mmol/L Potassium 5.5 H D (3.3-5.1) mmol/L Carbon Dioxide 19 L (22-29) mmol/L BUN 79 H (9-16) mg/dL Creatinine 3.17 H (0.5-1.4) mg/dL POC Glucose (60-115) mg/dL Random Glucose 152 H (60-115) mg/dL Lactic Acid 2.8 H* (0.5-2.0) mmol/L Lactic Acid F/U @ 2Hr (0.5-2.0) mmol/L Calcium 7.8 L (8.4-10.2) mg/dL Phosphorus (2.7-4.5) mg/dL Total Bilirubin 1.7 H (0.0-1.0) mg/dL AST 45 H (5-37) U/L Alkaline Phosphatase 180 H (39-117) U/L Ammonia (13-55) umol/L B-Natriuretic Peptide 635 H (<100) pg/mL Total Protein 6.0 L (6.5-8.0) g/dL Albumin 2.2 L (3.5-5.0) g/dL Urine Glucose (UA) (Negative) mg/dL Ur Leukocyte Esterase (Negative) Urine WBC (0-5) /HPF 09/30/24 09/30/24 09/30/24 Range/Units 04:59 07:48 11:36 WBC (4.8-10.8) X10*3/uL RBC (4.60-5.80) X10*6/uL Hgb (14.0-18.0) g/dl Hct (42.0-52.0) % MCHC (31.0-36.0) g/dl Plt Count (160-400) X10*3/uL Neut % (Auto) (45-73) % Lymph % (Auto) (20-40) % Lymph # (Auto) (1.2-4.9) X10*3/uL Abs Immat Gran (auto) (0.00-0.03) X10*3/uL Absolute Neuts (auto) (2.0-8.3) x10*3/uL Band Neutrophils % (3-5) % Lymphocytes % (Manual) (20-40) % Abs Neuts (Manual) (2.0-8.3) X10*3/uL Lymphocytes # (Manual) (1.2-4.9) X10*3/uL PT (10.9-12.4) SEC INR (0.9-1.1) VBG pH 7.29 L (7.32-7.43) VBG HCO3 21 L (22-26) mmol/L Sodium (135-145) mmol/L Potassium (3.3-5.1) mmol/L Carbon Dioxide (22-29) mmol/L BUN (9-16) mg/dL Creatinine (0.5-1.4) mg/dL POC Glucose 155 H (60-115) mg/dL Random Glucose (60-115) mg/dL Lactic Acid (0.5-2.0) mmol/L Lactic Acid F/U @ 2Hr 2.1 H* (0.5-2.0) mmol/L Calcium (8.4-10.2) mg/dL Phosphorus (2.7-4.5) mg/dL Total Bilirubin (0.0-1.0) mg/dL AST (5-37) U/L Alkaline Phosphatase (39-117) U/L Ammonia (13-55) umol/L B-Natriuretic Peptide (<100) pg/mL Total Protein (6.5-8.0) g/dL Albumin (3.5-5.0) g/dL Urine Glucose (UA) 500 H (Negative) mg/dL Ur Leukocyte Esterase Moderate (2+) H (Negative) Urine WBC 21-50 H (0-5) /HPF 09/30/24 09/30/24 09/30/24 Range/Units 12:04 16:24 19:02 WBC 12.8 H 18.4 H (4.8-10.8) X10*3/uL RBC 3.07 L 2.95 L (4.60-5.80) X10*6/uL Hgb 8.5 L 8.2 L (14.0-18.0) g/dl Hct 27.6 L 25.9 L (42.0-52.0) % MCHC 30.8 L (31.0-36.0) g/dl Plt Count 144 L (160-400) X10*3/uL Neut % (Auto) 88.1 H (45-73) % Lymph % (Auto) 1.4 L (20-40) % Lymph # (Auto) 0.2 L (1.2-4.9) X10*3/uL Abs Immat Gran (auto) 0.05 H (0.00-0.03) X10*3/uL Absolute Neuts (auto) 11.3 H (2.0-8.3) x10*3/uL Band Neutrophils % 28 H (3-5) % Lymphocytes % (Manual) 1 L (20-40) % Abs Neuts (Manual) 17.8 H (2.0-8.3) X10*3/uL Lymphocytes # (Manual) 0.2 L (1.2-4.9) X10*3/uL PT (10.9-12.4) SEC INR (0.9-1.1) VBG pH (7.32-7.43) VBG HCO3 (22-26) mmol/L Sodium 130 L 130 L (135-145) mmol/L Potassium 5.2 H 5.2 H (3.3-5.1) mmol/L Carbon Dioxide 18 L 20 L (22-29) mmol/L BUN 85 H 76 H (9-16) mg/dL Creatinine 3.00 H 2.96 H (0.5-1.4) mg/dL POC Glucose 171 H (60-115) mg/dL Random Glucose 162 H 212 H (60-115) mg/dL Lactic Acid (0.5-2.0) mmol/L Lactic Acid F/U @ 2Hr (0.5-2.0) mmol/L Calcium 8.0 L 7.4 L D (8.4-10.2) mg/dL Phosphorus 6.2 H 6.4 H (2.7-4.5) mg/dL Total Bilirubin 2.0 H (0.0-1.0) mg/dL AST 38 H (5-37) U/L Alkaline Phosphatase 155 H (39-117) U/L Ammonia 57 H (13-55) umol/L B-Natriuretic Peptide (<100) pg/mL Total Protein 5.9 L (6.5-8.0) g/dL Albumin 2.6 L (3.5-5.0) g/dL Urine Glucose (UA) (Negative) mg/dL Ur Leukocyte Esterase (Negative) Urine WBC (0-5) /HPF 09/30/24 Range/Units 19:07 WBC (4.8-10.8) X10*3/uL RBC (4.60-5.80) X10*6/uL Hgb (14.0-18.0) g/dl Hct (42.0-52.0) % MCHC (31.0-36.0) g/dl Plt Count (160-400) X10*3/uL Neut % (Auto) (45-73) % Lymph % (Auto) (20-40) % Lymph # (Auto) (1.2-4.9) X10*3/uL Abs Immat Gran (auto) (0.00-0.03) X10*3/uL Absolute Neuts (auto) (2.0-8.3) x10*3/uL Band Neutrophils % (3-5) % Lymphocytes % (Manual) (20-40) % Abs Neuts (Manual) (2.0-8.3) X10*3/uL Lymphocytes # (Manual) (1.2-4.9) X10*3/uL PT (10.9-12.4) SEC INR (0.9-1.1) VBG pH (7.32-7.43) VBG HCO3 21 L (22-26) mmol/L Sodium (135-145) mmol/L Potassium (3.3-5.1) mmol/L Carbon Dioxide (22-29) mmol/L BUN (9-16) mg/dL Creatinine (0.5-1.4) mg/dL POC Glucose (60-115) mg/dL Random Glucose (60-115) mg/dL Lactic Acid (0.5-2.0) mmol/L Lactic Acid F/U @ 2Hr (0.5-2.0) mmol/L Calcium (8.4-10.2) mg/dL Phosphorus (2.7-4.5) mg/dL Total Bilirubin (0.0-1.0) mg/dL AST (5-37) U/L Alkaline Phosphatase (39-117) U/L Ammonia (13-55) umol/L B-Natriuretic Peptide (<100) pg/mL Total Protein (6.5-8.0) g/dL Albumin (3.5-5.0) g/dL Urine Glucose (UA) (Negative) mg/dL Ur Leukocyte Esterase (Negative) Urine WBC (0-5) /HPF Short CBC 09/30/24 09/30/24 09/30/24 Range/Units 04:49 12:04 19:02 WBC 9.0 12.8 H 18.4 H (4.8-10.8) X10*3/uL Hgb 8.2 L 8.5 L 8.2 L (14.0-18.0) g/dl Hct 27.1 L D 27.6 L 25.9 L (42.0-52.0) % Plt Count 137 L 144 L 179 (160-400) X10*3/uL BMP 09/30/24 09/30/24 09/30/24 04:50 12:04 19:02 Sodium 131 L 130 L 130 L Potassium 5.5 H D 5.2 H 5.2 H Chloride 100 102 102 Carbon Dioxide 19 L 18 L 20 L BUN 79 H 85 H 76 H Creatinine 3.17 H 3.00 H 2.96 H Calcium 7.8 L 8.0 L 7.4 L D Cardiac Enzymes 09/30/24 Range/Units 04:50 Total Creatine Kinase 142 (38-174) U/L Liver Function 09/30/24 09/30/24 Range/Units 04:50 19:02 Total Bilirubin 1.7 H 2.0 H (0.0-1.0) mg/dL AST 45 H 38 H (5-37) U/L ALT 18 18 (0-40) U/L Alkaline Phosphatase 180 H 155 H (39-117) U/L Albumin 2.2 L 2.6 L (3.5-5.0) g/dL Urine 09/30/24 Range/Units 07:48 Urine Color Yellow Urine Appearance Clear Urine pH 5.0 (5.0-9.0) Ur Specific [place] 1.015 (1.005-1.025) Urine Protein Negative (Neg-Trace) mg/dL Urine Glucose (UA) 500 H (Negative) mg/dL All other labs normal. Assessment and Plan (1) Cirrhosis of liver with ascites: Qualifiers: Hepatic cirrhosis type: unspecified hepatic cirrhosis Qualified Code(s): K74.60 - Unspecified cirrhosis of liver; R18.8 - Other ascites Status: Acute (2) Cirrhosis: Status: Acute (3) Hepatic encephalopathy: Status: Acute (4) Acute on chronic renal insufficiency: Status: Acute (5) Acute cholecystitis due to biliary calculus: Status: Acute Plan At present, patient would be a prohibitive operative risk secondary to all his appreciable advanced comorbidities. Consideration for interventional radiologic gallbladder drainage can be undertaken but not a surgical procedure because of the very high morbidity/mortality secondary to the patient's medical issues in particular his advanced cirrhosis. I am unclear /unsure if interventional Radiology is available after hours or on weekends. This was tiger text communicated with the machine bander and cellophaner helper, Dr. Franco and will be handled by the ICU team. If indeed IR is unavailable on the weekend, consideration can be made for transfer to a facility with interventional radiological capabilities. Procedures Date of Service Date of Service: 09/30/24
[2024-09-30 20:11] LABS: Glucose, Whole Blood 216 mg/dL (60-115)
[2024-09-30] MEDS: Insulin Regular, Human 100 UNIT/ML 10 ML VIAL IVPUSH (20:13)
[2024-09-30] MEDS: Dextrose 10 % 250 ML 750 ML IV (20:13)
--- NOTE | 2024-09-30 23:27 | PM.CCN ---
Critical Care Event Note Summary Date of Service: 09/30/24 Code activated: No Narrative: This case had a high probability of a clinically significant, sudden, or life threatening deterioration of this patient's condition which required my full and direct attention, intervention and personal management. Critical Care Time (minutes): 90 Comment: ?The patient is a 79-year-old male with a past medical history of hepatic cirrhosis complicated by esophageal varices and ascites, cirrhosis, diabetes mellitus with 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, hypertension, hyperlipidemia, coronary artery disease s/p? 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 positive urine for UTI, prompting ICU admission for? management of septic shock from UTI requiring vasopressor support. UTI? treated with ceftriaxone and 1? empiric dose of vancomycin given by the emergency department.? ?Initially patient on minimal Levophed requirement, but later during the day patient requiring more Levophed and initiation of vasopressin, ? abdomen more distended, and complaining of some mild diffuse abdominal pain.? Attempted to get a CT scan but unable due to patient suddenly becoming? tachycardic to? 200? while laying flat before CT scan.? Abdominal ultrasound performed at bedside,? concerning for gallbladder perforation.? Patient is started on bicarb drip 150meq @50ml/hr,? antibiotic coverage broadened with vancomycin and Zosyn, and received dose of hydrocortisone 50 mg IV push.? ?General surgery? consulted, Dr Sorenson? who recommended? obtaining CT scan, and transferred to another facility for possible? cholecystostomy tube with IR.? ? Unfortunately no IR available at [facility] at this time.?? Patient stabilized? later during the evening was able to obtain CT scans.? ABD CT: fluid collection within the liver, contiguous with the gallbladder is suggestive of a contained perforation with extension into the liver. Multiple gallstones are present. Cholecystitis again suggested Chest CT: Bibasilar consolidation, [id number]-[id number]-[id number]-right. Appearance on the left may be consistent with pneumonia. Head CT: No acute changes? ?I contacted [facility], Spoke with Dr Morocho with Trauma/ Critical Care surgery attending,? who reviewed imaging and recommends cholecystostomy drain instead of surgical intervention.? ? Spoke with [facility] fellow, Dr Frey,? who agrees patient needs IR, but unfortunately do not have bed capacity at this time, recommends to call back in the morning.? Called [facility], spoke with Fabricio, also reports [facility] is at capacity and they will reach out if a bed becomes available.? Plan: Neuro: no acute issues; empiric lactulose, rifaximin given earlier, but on hold now due to NPO status Cardiac:? ?Septic shock-? initially believed to be due to UTI/ ?SBP, now CT scan? showing contained perforation of the gallbladder with extension into the liver.? Empirically treated with vancomycin and Zosyn.? [facility] surgery as well as [facility] surgery agrees patient is not candidate for surgery, should go for IR placement of cholecystostomy tube. ? Unable to do it here at the facility.? Awaiting for tertiary center? bed availability. Continue Levophed and vasopressin drip. CAD, s/p TAVR Resp:? ?Acute hypoxic respiratory failure:? requiring? 5 L supplemental oxygenation via nasal cannula.? Chest CT with some concerns of possible pneumonia.? Being covered with empiric antibiotics.? Wean off supplemental oxygenation as tolerated GI: ?Gallbladder perforation: CT scan showing contained gallbladder perforation extending to liver, Transaminitis- Hx cirrhosis, c/b ascites, esophageal varices. ? This is? Likely source of septic shock.? Will be transferred for IR placement of cholecystostomy tube.? Continue antibiotics.? : EMMANUEL:, possibly d/t decompensated cirrhosis, c/f hepato-renal syndrome; to monitor renal indices, electrolytes very closely; direusis as tolerated UTI: being treated with empiric antibiotics. Heme/onc: anemia, thrombocytopenia; to monitor closely; to avoid chemical DVT prophylaxis PLT < 50 or c/f hemorrhage ID:? septic shock:? continue antibiotics.? Blood/ Urine cultures sent in the morning ,? at this time no growth. Cont abx? Endo: insulin-dependent diabetes mellitus; insulin sliding scale; to follow-up random cortisol, TSH/T4 Psych: no acute issues Miscellaneous: Attending Dr Franco had? goals of care conversation was held earlier during the day,? with patient, (Myesha Lopes), Son/HCP Blaise Lopes, ? patient reported in the event his heart stopped beating he would not want CPR/? intubation.? His code status was changed to DNR DNI.? Later in the evening informed the patient condition/CT results,? are in agreement to transfer patient for IR placement of cholecystostomy tube.? Diet: NPO Prophylaxis: subcut Heparin on hold for possible procedure,? pneumonic boots on,? No GI prophylaxis at this time?Critical care time:? X 90 minutes of critical care time ? Code? status:? DNR/ DNI as stated before ? Case discussed with attending Dr Franco?
[2024-09-30 23:59] LABS: Venous Blood Gas Refer to POC result
[2024-10-01] VITALS (7 sets, daily range): BP systolic 107–125; BP diastolic 45–68; PULSE 70–80; RESP 15–23; TEMP 36.4–36.6; O2SAT 90–93
[2024-10-01 00:04] LABS: VBG Base Excess -3.7 mmol/L; VBG HCO3 21 mmol/L (22-26); VBG pCO2 38 mmHg; VBG pH 7.34 (7.32-7.43); VBG pO2 50 mmHg
[2024-10-01 00:13] LABS: Anion Gap 15 (12-20); Blood Urea Nitrogen 76 mg/dL (9-16); Calcium 7.5 mg/dL (8.4-10.2); Carbon Dioxide 19 mmol/L (22-29); Chloride 100 mmol/L (96-108); Creatinine Clr Calc Pharmacy 20.4; Estimated Glomerular Filt Rate 20; Glucose Random 297 mg/dL (60-115); Magnesium 2.3 mg/dL (1.6-2.6); Phosphorus 6.6 mg/dL (2.7-4.5); Potassium 5.3 mmol/L (3.3-5.1); Sodium 129 mmol/L (135-145)
[2024-10-01] MEDS: Insulin Lispro 100 UNIT/ML 3 ML VIAL SUBCUT (00:24)
[2024-10-01] MEDS: Norepinephrine Bitartrate/D5W 8 MG/250 ML PLAST..BAG 56.96 MG IV ×2 (00:25→03:16)
[2024-10-01 00:31] LABS: Glucose, Whole Blood 285 mg/dL (60-115)
[2024-10-01] MEDS: Hydrocortisone Sod Succ/PF 100 MG VIAL 50 MG IVPUSH (02:25)
--- NOTE | 2024-10-01 02:25 | PM.DS ---
DS: Providers Provider Date of Service: 10/01/24 Date of admission: 09/30/24 09:01 Date of discharge: 10/01/24 Primary care physician: Unknown Physician Admitting clinician: Melyssa Franco Attending physician on admission: Melyssa Franco Consults: Surgery Attending physician on discharge: Melyssa Franco Discharging clinician: Tobias Bautista DS: Transfer Hospital Acceptance Reason for Transfer: Requires interventional radiologic gallbladder drainage Name of Facility: [facility] Accepting Provider: Dr Morocho DS: Diagnosis Discharge Diagnosis (1) Septic shock: Status: Acute (2) Gallbladder perforation: Status: Acute (3) Cirrhosis of liver with ascites: Status: Acute (4) Cirrhosis: Status: Acute (5) Hepatic encephalopathy: Status: Acute (6) Acute on chronic renal insufficiency: Status: Acute (7) Acute cholecystitis due to biliary calculus: Status: Acute (8) Acute respiratory failure with hypoxia: Status: Resolved (9) Acute UTI: Status: Resolved (10) EMMANUEL (acute kidney injury): Status: Inactive (11) CAD (coronary artery disease): Status: Inactive (12) Acute on chronic kidney failure: Status: Acute (13) DMII (diabetes mellitus, type 2): Status: Acute (14) Ascites: Status: Acute DS: Summary Hospital Course Hospital Course: ?The patient is a 79-year-old male with a past medical history of hepatic cirrhosis complicated by esophageal varices and ascites, cirrhosis, diabetes mellitus with 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, hypertension, hyperlipidemia, coronary artery disease s/p? 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 positive urine for UTI, prompting ICU admission for? management of septic shock from UTI requiring vasopressor support. UTI? treated with ceftriaxone and 1? empiric dose of vancomycin given by the emergency department.? ?Initially patient on minimal Levophed requirement, but later during the day patient requiring more Levophed and initiation of vasopressin, ? abdomen more distended, and complaining of some mild diffuse abdominal pain.? Attempted to get a CT scan but unable due to patient suddenly becoming? tachycardic to? 200? while laying flat before CT scan.? Abdominal ultrasound performed at bedside,? concerning for gallbladder perforation.? Patient is started on bicarb drip 150meq @110ml/hr,? antibiotic coverage broadened with vancomycin and Zosyn, and received dose of hydrocortisone 50 mg IV push.? ?General surgery? consulted, Dr Sorenson? who recommended? obtaining CT scan, and transferred to another facility for possible? cholecystostomy tube with IR.? ? Unfortunately no IR available at [facility].?? Pa Patient stabilized? later during the evening was able to obtain CT scans.? ABD CT: fluid collection within the liver, contiguous with the gallbladder is suggestive of a contained perforation with extension into the liver. Multiple gallstones are present. Cholecystitis again suggested Chest CT: Bibasilar consolidation, [id number]. Appearance on the left may be consistent with pneumonia. Head CT: No acute changes? Attempted to transfer patient to [facility], [facility], but initially no bed capacity. Later patient accepted by trauma/critical care attending Dr Morocho into STICU Status at Discharge Overall status at discharge: other Time Attestation Total time managing care of this patient today: 60 mintues. Discharge Coordination Time (in mins): 60 Quality: Safe Use of Opioids Does Pt have an Active Cancer Diagnosis on the Problem List?: No Quality: Stroke Does the patient have a stroke diagnosis?: No Physical Exam Vital Signs: Vital Signs: Last Vital Signs Temp 97.6 F 10/01/24 00:00 Pulse 77 10/01/24 02:00 Resp 15 10/01/24 02:00 BP 117/49 L 10/01/24 02:00 Pulse Ox 93 10/01/24 02:00 O2 Del Method Nasal Cannula 10/01/24 02:00 O2 Flow Rate 6 10/01/24 02:00 BMI result Body Mass Index 28.3 ?General:? Alert oriented x3 no acute distress.?Following all commands. ?HEENT:? Head is normocephalic, atraumatic, pupils equal round reactive to light accommodation bilaterally.? Extraocular movements appear intact.? Buccal mucosa is dry, Neck is supple without lymphadenopathy. ?Cardiac:? Regular rate, rhythm Clear S1-S2, no murmurs rubs or gallops. BLE trace edema ?Pulmonary:? Rhonchus at the bases. No wheezes, rales or rhonchi. ?Abdomen:? ?Abdomen distended dull compressible, tenderness to palpation worse on upper quadrants. Normal bowel sounds. ?Musculoskeletal:? Moving all 4 extremities upon request a major joints, there is no crepitus or tenderness.? The strength is 5/5 bilaterally and throughout all 4 extremities.? Gait not assessed at this point. ?Neurologic:? No focal deficits noted.Motor strength as above.?? ?Skin:? No rashes/ lesions. Vascular:? 2+ pulses upper and lower extremities distally.? DS: Data Data Completed and Pending Completed studies during hospitalization [Text1]: Procedures Destruction of Bladder Neck, Via Natural or Artificial Opening Endoscopic (06/17/22) Excision of Duodenum, Via Natural or Artificial Opening Endoscopic, Diagnostic (01/25/24) Extirpation of Matter from Bladder, Via Natural or Artificial Opening Endoscopic (06/17/22) Occlusion of Esophageal Vein with Extraluminal Device, Via Natural or Artificial Opening Endoscopic (01/25/24) Transfusion of Autologous Red Blood Cells into Peripheral Vein, Percutaneous Approach (04/14/24) Transfusion of Nonautologous Red Blood Cells into Peripheral Vein, Percutaneous Approach (01/25/24) Labs on day of discharge: Laboratory Results - last 24 hr 09/30/24 09/30/24 09/30/24 04:49 04:50 04:51 WBC 9.0 RBC 3.01 L D Hgb 8.2 L Hct 27.1 L D MCV 90.0 MCH 27.2 MCHC 30.3 L RDW 15.7 Plt Count 137 L MPV 11.4 Immature Gran % (Auto) 0.4 Neut % (Auto) 87.2 H Lymph % (Auto) 1.8 L Orange % (Auto) 10.2 Eos % (Auto) 0.0 Baso % (Auto) 0.4 Lymph # (Auto) 0.2 L Orange # (Auto) 0.9 Eos # (Auto) 0.0 Baso # (Auto) 0.0 Abs Immat Gran (auto) 0.04 H Absolute Neuts (auto) 7.8 Absolute Nucleated RBC 0.000 Nucleated RBC % (auto) 0.0 Neutrophils % (Manual) Band Neutrophils % Lymphocytes % (Manual) Monocytes % (Manual) Abs Neuts (Manual) Lymphocytes # (Manual) Monocytes # (Manual) Toxic Vacuolation Dohle Bodies Platelet Estimate Plt Morphology Comment RBC Morphology Chantel Cells Acanthocytes (Spur) Schistocytes PT 21.2 H D INR 1.8 H VBG pH VBG pCO2 VBG pO2 VBG HCO3 VBG O2 Saturation VBG Base Excess Sodium 131 L Potassium 5.5 H D Chloride 100 Carbon Dioxide 19 L Anion Gap 18 BUN 79 H Creatinine 3.17 H Estim Creat Clear Calc 19.9 Estimated GFR 19 POC Glucose Random Glucose 152 H Lactic Acid Lactic Acid F/U @ 2Hr Lactic Acid F/U @ 4Hr Calcium 7.8 L Phosphorus Magnesium Total Bilirubin 1.7 H AST 45 H ALT 18 Alkaline Phosphatase 180 H Ammonia Total Creatine Kinase 142 Troponin I High Sens 11.8 B-Natriuretic Peptide Total Protein 6.0 L Albumin 2.2 L TSH Random Cortisol Urine Color Urine Appearance Urine pH Ur Specific [place] Urine Protein Urine Glucose (UA) Urine Ketones Urine Blood Urine Nitrite Ur Leukocyte Esterase Urine RBC Urine WBC Ur Squamous Epith Cells Urine Bacteria Hyaline Casts COVID-19 (MAJOR) COVID-19 Clin Com Influenza Type A (MARYAM) Influenza Type B (MARYAM) Influenza A & B Note 09/30/24 09/30/24 09/30/24 04:52 04:55 04:59 WBC RBC Hgb Hct MCV MCH MCHC RDW Plt Count MPV Immature Gran % (Auto) Neut % (Auto) Lymph % (Auto) Orange % (Auto) Eos % (Auto) Baso % (Auto) Lymph # (Auto) Orange # (Auto) Eos # (Auto) Baso # (Auto) Abs Immat Gran (auto) Absolute Neuts (auto) Absolute Nucleated RBC Nucleated RBC % (auto) Neutrophils % (Manual) Band Neutrophils % Lymphocytes % (Manual) Monocytes % (Manual) Abs Neuts (Manual) Lymphocytes # (Manual) Monocytes # (Manual) Toxic Vacuolation Dohle Bodies Platelet Estimate Plt Morphology Comment RBC Morphology [place]els[place] Cells Acanthocytes (Spur) Schistocytes PT INR VBG pH 7.29 L VBG pCO2 44 VBG pO2 28 VBG HCO3 21 L VBG O2 Saturation < 30.0 VBG Base Excess -4.8 Sodium Potassium Chloride Carbon Dioxide Anion Gap BUN Creatinine Estim Creat Clear Calc Estimated GFR POC Glucose Random Glucose Lactic Acid 2.8 H* Lactic Acid F/U @ 2Hr Lactic Acid F/U @ 4Hr Calcium Phosphorus Magnesium Total Bilirubin AST ALT Alkaline Phosphatase Ammonia Total Creatine Kinase Troponin I High Sens B-Natriuretic Peptide 635 H Total Protein Albumin TSH Random Cortisol Urine Color Urine Appearance Urine pH Ur Specific [place] Urine Protein Urine Glucose (UA) Urine Ketones Urine Blood Urine Nitrite Ur Leukocyte Esterase Urine RBC Urine WBC Ur Squamous Epith Cells Urine Bacteria Hyaline Casts COVID-19 (MAJOR) Negative COVID-19 Clin Com See Note Influenza Type A (MARYAM) Negative Influenza Type B (MARYAM) Negative Influenza A & B Note See Note 09/30/24 09/30/24 09/30/24 07:48 11:36 11:50 WBC RBC Hgb Hct MCV MCH MCHC RDW Plt Count MPV Immature Gran % (Auto) Neut % (Auto) Lymph % (Auto) Orange % (Auto) Eos % (Auto) Baso % (Auto) Lymph # (Auto) Orange # (Auto) Eos # (Auto) Baso # (Auto) Abs Immat Gran (auto) Absolute Neuts (auto) Absolute Nucleated RBC Nucleated RBC % (auto) Neutrophils % (Manual) Band Neutrophils % Lymphocytes % (Manual) Monocytes % (Manual) Abs Neuts (Manual) Lymphocytes # (Manual) Monocytes # (Manual) Toxic Vacuolation Dohle Bodies Platelet Estimate Plt Morphology Comment RBC Morphology Chantel Cells Acanthocytes (Spur) Schistocytes PT INR VBG pH VBG pCO2 VBG pO2 VBG HCO3 VBG O2 Saturation VBG Base Excess Sodium Potassium Chloride Carbon Dioxide Anion Gap BUN Creatinine Estim Creat Clear Calc Estimated GFR POC Glucose 155 H Random Glucose Lactic Acid Lactic Acid F/U @ 2Hr 2.1 H* Lactic Acid F/U @ 4Hr Calcium Phosphorus Magnesium Total Bilirubin AST ALT Alkaline Phosphatase Ammonia Total Creatine Kinase Troponin I High Sens B-Natriuretic Peptide Total Protein Albumin TSH Random Cortisol 24.6 Urine Color Yellow Urine Appearance Clear Urine pH 5.0 Ur Specific [place] 1.015 Urine Protein Negative Urine Glucose (UA) 500 H Urine Ketones Negative Urine Blood Negative Urine Nitrite Negative Ur Leukocyte Esterase Moderate (2+) H Urine RBC 0-2 Urine WBC 21-50 H Ur Squamous Epith Cells 3-5 Urine Bacteria 4+ Hyaline Casts 0-2 COVID-19 (MAJOR) COVID-19 Clin Com Influenza Type A (MARYAM) Influenza Type B (MARYAM) Influenza A & B Note 09/30/24 09/30/24 09/30/24 12:04 16:24 19:02 WBC 12.8 H 18.4 H RBC 3.07 L 2.95 L Hgb 8.5 L 8.2 L Hct 27.6 L 25.9 L MCV 89.9 87.8 MCH 27.7 27.8 MCHC 30.8 L 31.7 RDW 15.8 15.9 Plt Count 144 L 179 MPV 11.5 11.0 Immature Gran % (Auto) 0.4 Cancelled Neut % (Auto) 88.1 H Cancelled Lymph % (Auto) 1.4 L Cancelled Orange % (Auto) 9.6 Cancelled Eos % (Auto) 0.2 Cancelled Baso % (Auto) 0.3 Cancelled Lymph # (Auto) 0.2 L Cancelled Orange # (Auto) 1.2 Cancelled Eos # (Auto) 0.0 Cancelled Baso # (Auto) 0.0 Cancelled Abs Immat Gran (auto) 0.05 H Cancelled Absolute Neuts (auto) 11.3 H Cancelled Absolute Nucleated RBC 0.000 0.000 Nucleated RBC % (auto) 0.0 0.0 Neutrophils % (Manual) 69 Band Neutrophils % 28 H Lymphocytes % (Manual) 1 L Monocytes % (Manual) 2 Abs Neuts (Manual) 17.8 H Lymphocytes # (Manual) 0.2 L Monocytes # (Manual) 0.4 Toxic Vacuolation PRESENT Dohle Bodies PRESENT Platelet Estimate NORMAL Plt Morphology Comment NORM RBC Morphology NOTED Pelsor Cells 2+ (3-5) Acanthocytes (Spur) 2+ (3-5) Schistocytes 1+ (0-2) PT INR VBG pH VBG pCO2 VBG pO2 VBG HCO3 VBG O2 Saturation VBG Base Excess Sodium 130 L 130 L Potassium 5.2 H 5.2 H Chloride 102 102 Carbon Dioxide 18 L 20 L Anion Gap 15 13 BUN 85 H 76 H Creatinine 3.00 H 2.96 H Estim Creat Clear Calc 21.0 21.3 Estimated GFR 20 20 POC Glucose 171 H Random Glucose 162 H 212 H Lactic Acid 1.3 Lactic Acid F/U @ 2Hr Lactic Acid F/U @ 4Hr 1.7 Calcium 8.0 L 7.4 L D Phosphorus 6.2 H 6.4 H Magnesium 2.3 2.3 Total Bilirubin 2.0 H AST 38 H ALT 18 Alkaline Phosphatase 155 H Ammonia 57 H Total Creatine Kinase Troponin I High Sens B-Natriuretic Peptide Total Protein 5.9 L Albumin 2.6 L TSH 2.11 Random Cortisol Urine Color Urine Appearance Urine pH Ur Specific [place] Urine Protein Urine Glucose (UA) Urine Ketones Urine Blood Urine Nitrite Ur Leukocyte Esterase Urine RBC Urine WBC Ur Squamous Epith Cells Urine Bacteria Hyaline Casts COVID-19 (MAJOR) COVID-19 Clin Com Influenza Type A (MARYAM) Influenza Type B (MARYAM) Influenza A & B Note 09/30/24 09/30/24 09/30/24 19:07 20:07 23:51 WBC RBC Hgb Hct MCV MCH MCHC RDW Plt Count MPV Immature Gran % (Auto) Neut % (Auto) Lymph % (Auto) Orange % (Auto) Eos % (Auto) Baso % (Auto) Lymph # (Auto) Orange # (Auto) Eos # (Auto) Baso # (Auto) Abs Immat Gran (auto) Absolute Neuts (auto) Absolute Nucleated RBC Nucleated RBC % (auto) Neutrophils % (Manual) Band Neutrophils % Lymphocytes % (Manual) Monocytes % (Manual) Abs Neuts (Manual) Lymphocytes # (Manual) Monocytes # (Manual) Toxic Vacuolation Dohle Bodies Platelet Estimate Plt Morphology Comment RBC Morphology Pelsor Cells Acanthocytes (Spur) Schistocytes PT INR VBG pH 7.33 VBG pCO2 40 VBG pO2 55 VBG HCO3 21 L VBG O2 Saturation 82.0 VBG Base Excess -3.7 Sodium 129 L Potassium 5.3 H Chloride 100 Carbon Dioxide 19 L Anion Gap 15 BUN 76 H Creatinine 3.09 H Estim Creat Clear Calc 20.4 Estimated GFR 20 POC Glucose 216 H Random Glucose 297 H Lactic Acid Lactic Acid F/U @ 2Hr Lactic Acid F/U @ 4Hr Calcium 7.5 L Phosphorus 6.6 H Magnesium 2.3 Total Bilirubin AST ALT Alkaline Phosphatase Ammonia Total Creatine Kinase Troponin I High Sens B-Natriuretic Peptide Total Protein Albumin TSH Random Cortisol Urine Color Urine Appearance Urine pH Ur Specific [place] Urine Protein Urine Glucose (UA) Urine Ketones Urine Blood Urine Nitrite Ur Leukocyte Esterase Urine RBC Urine WBC Ur Squamous Epith Cells Urine Bacteria Hyaline Casts COVID-19 (MAJOR) COVID-19 Clin Com Influenza Type A (MARYAM) Influenza Type B (MARYAM) Influenza A & B Note 09/30/24 10/01/24 23:56 00:21 WBC RBC Hgb Hct MCV MCH MCHC RDW Plt Count MPV Immature Gran % (Auto) Neut % (Auto) Lymph % (Auto) Orange % (Auto) Eos % (Auto) Baso % (Auto) Lymph # (Auto) Orange # (Auto) Eos # (Auto) Baso # (Auto) Abs Immat Gran (auto) Absolute Neuts (auto) Absolute Nucleated RBC Nucleated RBC % (auto) Neutrophils % (Manual) Band Neutrophils % Lymphocytes % (Manual) Monocytes % (Manual) Abs Neuts (Manual) Lymphocytes # (Manual) Monocytes # (Manual) Toxic Vacuolation Dohle Bodies Platelet Estimate Plt Morphology Comment RBC Morphology Pelsor Cells Acanthocytes (Spur) Schistocytes PT INR VBG pH 7.34 VBG pCO2 38 VBG pO2 50 VBG HCO3 21 L VBG O2 Saturation 78.0 VBG Base Excess -3.7 Sodium Potassium Chloride Carbon Dioxide Anion Gap BUN Creatinine Estim Creat Clear Calc Estimated GFR POC Glucose 285 H Random Glucose Lactic Acid Lactic Acid F/U @ 2Hr Lactic Acid F/U @ 4Hr Calcium Phosphorus Magnesium Total Bilirubin AST ALT Alkaline Phosphatase Ammonia Total Creatine Kinase Troponin I High Sens B-Natriuretic Peptide Total Protein Albumin TSH Random Cortisol Urine Color Urine Appearance Urine pH Ur Specific [place] Urine Protein Urine Glucose (UA) Urine Ketones Urine Blood Urine Nitrite Ur Leukocyte Esterase Urine RBC Urine WBC Ur Squamous Epith Cells Urine Bacteria Hyaline Casts COVID-19 (MAJOR) COVID-19 Clin Com Influenza Type A (MARYAM) Influenza Type B (MARYAM) Influenza A & B Note Imaging CT scan - abdomen: Radiologist's impression: ?fluid collection within the liver, contiguous with the gallbladder is suggestive of a contained perforation with extension into the liver. Multiple gallstones are present. Cholecystitis again suggested CT scan - chest: Radiologist's impression: Bibasilar consolidation, [id number]. Appearance on the left may be consistent with pneumonia. CT scan - head: My impression: No acute changes? Discharge Plan Discharge Anticipated Discharge Date/Time: 10/01/24 02:44 Patient Disposition: Xfer Acute Care Hospital Discharge Diagnosis: Gallbladder perforation Referrals: Physician,Unknown J [Primary Care Provider] - 1 Week Discharge Medications: Continued (DME) FreeStyle Marleni 14 Day [place] Misc See Rx Instructions .Route Qty: 1 0RF Rx Instructions: As directed (DME) FreeStyle Marleni 14 Day Sensor Kit See Rx Instructions .Route Qty: 2 2RF Rx Instructions: As directed (DME) blood-glucose meter [FreeStyle Lite Meter] Kit See Rx Instructions .Route Qty: 1 0RF Rx Instructions: As directed (DME) pen needle, diabetic [BD Gifty 2nd Gen Pen Needle] 32 gauge x 5/32 needle See Rx Instructions .MEDSUPPLY Qty: 150 5RF Rx Instructions: 4 times a day (DME) pen needle, diabetic [BD Ultra-Fine Gifty Pen Needle] 32 gauge x 5/32 needle See Rx Instructions .ROUTE .MEDSUPPLY Qty: 50 3RF Rx Instructions: As directed (DME) blood-glucose meter [Prodigy Pocket Meter] Kit See Rx Instructions .Route Qty: 1 0RF Rx Instructions: Testing three times per day insulin lispro [Admelog SoloStar U-100 Insulin] 100 unit/mL insulin pen 1 sliding scale dose subcut TID 30 Days Qty: 15 6RF Rx Instructions: BG <111 0 units, 111-150 - 0 units, 151-200 2 units, 201-250 4 units, 251-300 6 units, 301-350 8 units, >350 10 units finasteride [Proscar] 5 mg tablet 5 mg PO DAILY 90 Days Qty: 90 1RF Trulicity 0.75 mg/0.5 mL pen injector 0.75 mg SUBCUT MO Qty: 2 3RF carvedilol 6.25 mg tablet 6.25 mg PO BID 30 Days Qty: 60 3RF Rx Instructions: must administer with a meal/food alprazolam 0.5 mg tablet 0.5 mg PO BID PRN (Reason: Anxiety) 30 Days Qty: 60 1RF rifaximin 550 mg tablet 550 mg PO BID 90 Days Qty: 180 1RF midodrine 10 mg tablet 10 mg PO TID 30 Days Qty: 90 0RF Rx Instructions: do not give last dose of day after 6PM or within 4 hrs of bedtime (DME) FreeStyle Test Strip See Rx Instructions .Route Qty: 100 3RF Rx Instructions: three times per day (DME) Prodigy No Coding Strip See Rx Instructions .Route Qty: 50 6RF Rx Instructions: Test 3 times a day atorvastatin 80 mg tablet 40 mg PO BEDTIME Qty: 90 0RF diclofenac sodium 1 % gel 2 g topical QID Qty: 100 0RF Rx Instructions: apply to single elbow, wrist or hand; for hand includes palm/fingers/back of hand ferrous sulfate 325 mg (65 mg iron) tablet,delayed release (DR/EC) 325 mg PO DAILY Qty: 90 0RF ezetimibe [Zetia] 10 mg tablet 10 mg PO DAILY Qty: 30 0RF pantoprazole 40 mg tablet,delayed release (DR/EC) 40 mg PO DAILY Qty: 30 0RF Farxiga 10 mg tablet 10 mg PO DAILY 30 Days Qty: 30 0RF spironolactone 25 mg tablet 25 mg PO DAILY 30 Days Qty: 30 0RF cyanocobalamin (vitamin B-12) 500 mcg tablet 1,000 mcg PO BEDTIME Qty: 90 0RF bumetanide 1 mg tablet 1 mg PO BID 30 Days Qty: 60 0RF gabapentin 300 mg capsule 300 mg PO BID 30 Days Qty: 60 3RF lactulose 10 gram/15 mL solution 30 ml PO BID insulin degludec [Tresiba FlexTouch U-100] 100 unit/mL (3 mL) insulin pen 6 unit subcut BEDTIME tamsulosin 0.4 mg capsule 0.4 mg PO BEDTIME (DME) lancets [FreeStyle Lancets] 28 gauge misc See Rx Instructions .Route Qty: 100 6RF Rx Instructions: As directed three times per day (DME) blood pressure test kit-large Kit See Rx Instructions .Route Qty: 1 0RF Rx Instructions: As directed Discharge Orders: Discharge Order (Routine); Ordered 10/01/24 Ordered By: Tobias Bautista Activity on Discharge: Bedbound until procedure Stand Alone Forms: Patient Portal Discharge page Print Language: Cambodian Care Plan Goals: Interventional radiology gallbladder drain Health Concerns: Gallbladder perforation Plan of Treatment: Interventional radiology gallbladder drain Assessment: Interventional radiology gallbladder drain Discharge Date/Time: 10/01/24 03:38
[2024-10-01] MEDS: Albumin Human 25 % 100 ML IV (02:26)
--- NOTE | 2024-10-01 03:45 | PC.NURSE ---
Pt accepted to [facility] for IR procedure, pt going?to [facility] 3 - bed 29. Report given to Emil THORNE.? 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 - Myesha, notified.
== END 2024-10-01 03:38 | disposition short-term general hospital (02) | DRG 444 ==
LOC: HO.ED 08:46 → HO.EDOVER 09:01 → HO.ICU 09:21
PROVIDERS: Registered Nurse Community Health; Admitting Provider Internal Medicine Critical Care Medicine; Emergency Provider Emergency Medicine Emergency Medical Services; Visit Provider Internal Medicine Critical Care Medicine
DX: K80.00 Calculus of gallbladder with acute cholecystitis without obstruction (principal); K76.7 Hepatorenal syndrome; K82.A2 Perforation of gallbladder in cholecystitis; I85.10 Secondary esophageal varices without bleeding; R18.8 Other ascites; N18.4 Chronic kidney disease, stage 4 (severe); I25.10 Atherosclerotic heart disease of native coronary artery without angina pectoris; K74.60 Unspecified cirrhosis of liver; K76.82 Hepatic encephalopathy; I12.9 Hypertensive chronic kidney disease with stage 1 through stage 4 chronic kidney disease, or unspecified chronic kidney disease; Z66 Do not resuscitate; R29.6 Repeated falls; E11.22 Type 2 diabetes mellitus with diabetic chronic kidney disease; E11.42 Type 2 diabetes mellitus with diabetic 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; Z20.822 Contact with and (suspected) exposure to COVID-19; Z95.2 Presence of prosthetic heart valve; Z79.4 Long term (current) use of insulin; Z79.899 Other long term (current) drug therapy
CPT/HCPCS: 70450; 71045; 71250; 74176; 76705; 80048; 80053; 81001; 82140; 82533; 82550; 82803; 82947; 83605; 83735; 83880; 84100; 84443; 84484; 85007; 85025; 85027; 85610; 87040; 87086; 87088; 87186; 87502; 87635; 93005; 93306; 99285; C1758; J0613; J0696; J1644; J1720; J1940; J2250; J2470; J2543; J2598; J3370; P9047

== ENCOUNTER → 2024-09-30 04:40 | Outpatient (BNV) | payer MEDICARE, SELFPAY | PROVIDERS: Admitting Provider Internal Medicine Critical Care Medicine; Emergency Provider Emergency Medicine Emergency Medical Services; Visit Provider Internal Medicine Cardiovascular Disease | DX: I42.2 Other hypertrophic cardiomyopathy (principal); I35.2 Nonrheumatic aortic (valve) stenosis with insufficiency; Z95.3 Presence of xenogenic heart valve; R94.31 Abnormal electrocardiogram [ECG] [EKG] | CPT/HCPCS: 93010; 93306 ==

== ENCOUNTER → 2024-09-30 04:55 | Outpatient (BNV) | payer MEDICARE, SELFPAY | PROVIDERS: Emergency Provider Emergency Medicine Emergency Medical Services; Visit Provider Radiology Diagnostic Radiology | DX: R91.8 Other nonspecific abnormal finding of lung field (principal) | CPT/HCPCS: 71045 ==

== ENCOUNTER → 2024-09-30 09:01 | Outpatient (BNV) | payer MEDICARE, SELFPAY | PROVIDERS: Admitting Provider Internal Medicine Critical Care Medicine; Emergency Provider Emergency Medicine Emergency Medical Services; Visit Provider Surgery | DX: K74.60 Unspecified cirrhosis of liver (principal); R18.8 Other ascites; K76.82 Hepatic encephalopathy; N28.9 Disorder of kidney and ureter, unspecified; N18.9 Chronic kidney disease, unspecified; K80.00 Calculus of gallbladder with acute cholecystitis without obstruction | CPT/HCPCS: 99223 ==

== ENCOUNTER → 2024-09-30 09:01 | Outpatient (BNV) | payer MEDICARE, SELFPAY | PROVIDERS: Admitting Provider Internal Medicine Critical Care Medicine; Emergency Provider Emergency Medicine Emergency Medical Services; Visit Provider Internal Medicine Critical Care Medicine | DX: A41.9 Sepsis, unspecified organism (principal); R65.21 Severe sepsis with septic shock; K74.60 Unspecified cirrhosis of liver; K82.2 Perforation of gallbladder; R18.8 Other ascites; K76.82 Hepatic encephalopathy; N28.9 Disorder of kidney and ureter, unspecified; N18.9 Chronic kidney disease, unspecified; K80.00 Calculus of gallbladder with acute cholecystitis without obstruction; J96.01 Acute respiratory failure with hypoxia; N39.0 Urinary tract infection, site not specified; N17.9 Acute kidney failure, unspecified; I25.10 Atherosclerotic heart disease of native coronary artery without angina pectoris; E11.42 Type 2 diabetes mellitus with diabetic 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; Z79.4 Long term (current) use of insulin | CPT/HCPCS: 99223; 99239 ==

== ENCOUNTER 2024-10-03 07:58 | Outpatient (REF) | payer MEDICARE, SELFPAY ==
--- OUTSIDE RECORDS SUMMARY | 2024-10-03 08:01 | XMS_ITS | Clinical Summary ---
Author Organization Unknown Care Team Providers Care Radar Repairer Name Role Phone RYAN TAPIA, LEI Unavailable Unavailable JOSE THORNE, GRETA Unavailable Unavailable Payers Payer Name Policy Type Policy Number Effective Date Expira tion Date MEDICARE.NGS.PDGM [id number] Problems Condition Name Condition Details Condition Category [...] 02-08 00:00: 00 ATHSCL HEART DISEASE OF [place] CORONARY ARTERY W/O ANG PCTRS Active 09-14 [...] 01-14 00:00: 00 02-08 23:59 :00 No [id number] ANXIETY 1 tablet 2 TIMES DAILY 1 tablet 2 TIMES DAILY (route: oral) Med Classific ation: Central Nervous System Agents atorvastati n 80 mg tablet 01-14 00:00: 00 Yes [id number] CHOLESTEROL 1 tablet DAILY 1 tablet DAILY (route: oral) Med Classific ation: Cardiovas cular Therapy Agents bethanechol chloride 25 mg tablet 01-14 00:00: 00 Yes [id number] BLADDER 1 tablet 2 TIMES DAILY 1 tablet 2 TIMES DAILY (route: oral) Med Classific ation: Genitouri nary Therapy Farxiga 10 mg tablet 01-14 00:00: 00 Yes [id number] DM2 1 tablet DAILY 1 tablet DAILY (route: oral) Med Classific ation: Endocrine finasteride 5 mg tablet 01-14 00:00: 00 Yes [id number] BPH 1 tablet DAILY 1 tablet DAILY (route: oral) Med Classific ation: Genitouri nary Therapy gabapentin 400 mg capsule 01-14 00:00: 00 Yes [id number] NERVE PAIN 1 capsule 3 TIMES DAILY 1 capsule 3 TIMES DAILY (route: oral) Med Classific ation: Central Nervous System Agents insulin aspar prot-insuli n aspart 100 unit/mL (70-30) [facility] 01-14 00:00: 00 01-16 16:23 :30.0 57 No [id number] DM2 2-25 In unit 3 TIMES DAILY 2-25 In unit 3 TIMES DAILY (route: subcutaneo us) Med Classific ation: Endocrine iron 325 mg (65 mg iron) tablet 01-14 00:00: 00 Yes [id number] SUPPLEMENT 1 tablet DAILY 1 tablet DAILY (route: oral) Med Classific ation: Electroly te Balance-N utritiona l Products mecobalamin (vitamin B12) 1,000 mcg chewable tablet 01-14 00:00: 00 Yes [id number] SUPPLEMENT 1 tablet DAILY 1 tablet DAILY (route: oral) Med Classific ation: Electroly te Balance-N utritiona l Products metoprolol succinate ER 100 mg tablet,exte nded release 24 hr 01-14 00:00: 00 02-08 23:59 :00 No [id number] HTN 1 tablet DAILY 1 tablet DAILY (route: oral) Med Classific ation: Cardiovas cular Therapy Agents omeprazole 20 mg capsule,del ayed release 01-14 00:00: 00 02-08 23:59 :00 No [id number] GERD 1 capsule 2 TIMES DAILY 1 capsule 2 TIMES DAILY (route: oral) Med Classific ation: Gastroint estinal Therapy Agents Plavix 75 mg tablet 01-14 00:00: 00 Yes [id number] CLOTING 1 tablet DAILY 1 tablet DAILY (route: oral) Med Classific ation: Hematolog ical Agents tamsulosin 0.4 mg capsule 01-14 00:00: 00 Yes [id number] BPH 1 capsule DAILY 1 capsule DAILY (route: oral) Med Classific ation: Genitouri nary Therapy torsemide 20 mg tablet 01-14 00:00: 00 02-08 23:59 :00 No [id number] EDEMA 1 tablet DAILY 1 tablet DAILY (route: oral) Med Classific ation: Cardiovas cular Therapy Agents tramadol 50 mg tablet 01-14 00:00: 00 Yes [id number] PAIN 0.5 tablet EVERY 6 HOURS 0.5 tablet EVERY 6 HOURS (route: oral) Med Classific ation: Analgesic , Anti-infl ammatory or Antipyret ic Tresiba FlexTouch U-100 insulin 100 unit/mL (3 mL) subcutaneou s pen 01-14 00:00: 00 02-08 23:59 :00 No [id number] DM2 64 In unit DAILY 64 In unit DAILY (route: subcutaneo us) Med Classific ation: Endocrine Trulicity 0.75 mg/0.5 mL subcutaneou s pen injector 01-14 00:00: 00 Yes [id number] DM2 0.5 mL WEEKLY 0.5 mL WEEKLY (route: subcutaneo us) Med Classific ation: Endocrine Zetia 10 mg tablet 01-14 00:00: 00 Yes [id number] CHOLESTEROL 1 tablet DAILY 1 tablet DAILY (route: oral) Med Classific ation: Cardiovas cular Therapy Agents ceftriaxone 1 gram intravenous solution 02-08 00:00: 00 03-08 23:59 :00 No [id number] infection 2 gram DAILY 2 gram DAILY (route: intravenou s) Med Classific ation: Anti-Infe ctive Agents sodium chloride 0.9 % intravenous solution 02-08 00:00: 00 Yes [id number] flush 10 mL DIRECTED 10 mL DIRECTED (route: intravenou s) Med Classific ation: Electroly te Balance-N utritiona l Products heparin, porcine (PF) 10 unit/mL intravenous syringe 02-08 00:00: 00 Yes [id number] flush 5 mL DIRECTED 5 mL DIRECTED (route: intravenou s) Med Classific ation: Hematolog ical Agents carvedilol 6.25 mg tablet 02-08 00:00: 00 Yes [id number] heart 1 tablet 2 TIMES DAILY 1 tablet 2 TIMES DAILY (route: oral) Med Classific ation: Cardiovas cular Therapy Agents Lasix 40 mg tablet 02-08 00:00: 00 Yes [id number] fluid 1 tablet 2 TIMES DAILY 1 tablet 2 TIMES DAILY (route: oral) Med Classific ation: Cardiovas cular Therapy Agents Tresiba U-100 Insulin 100 unit/mL subcutaneou s solution 02-08 00:00: 00 Yes [id number] blood sugar 10 unit BEDTIME 10 unit BEDTIME (route: subcutaneo us) Med Classific ation: Endocrine pantoprazol e 40 mg tablet,shayna yed release 02-08 00:00: 00 Yes [id number] gerd 1 tablet DAILY 1 tablet DAILY (route: oral) Med Classific ation: Gastroint estinal Therapy Agents Aldactone 100 mg tablet 02-08 00:00: 00 Yes [id number] BP 1 tablet DAILY 1 tablet DAILY (route: oral) Med Classific ation: Cardiovas cular Therapy Agents aspirin 81 mg tablet,shayna yed release 02-08 00:00: 00 Yes [id number] ANTICOAGULA NT 1 tablet DAILY 1 tablet DAILY (route: oral) Med Classific ation: Hematolog ical Agents ceftriaxone 2 gram intravenous solution 02-08 00:00: 00 03-08 23:59 :00 No [id number] CERVICAL OSTEOMYELIT IS 2 g DAILY 2 g DAILY (route: intravenou s) Med Classific ation: Anti-Infe ctive Agents Coreg 6.25 mg tablet 02-08 00:00: 00 Yes [id number] BP 1 tablet 2 TIMES DAILY 1 tablet 2 TIMES DAILY (route: oral) Med Classific ation: Cardiovas cular Therapy Agents lactulose 10 gram/15 mL (15 mL) oral solution 02-08 00:00: 00 Yes [id number] LAXATIVE 15 mL NEEDED 15 mL NEEDED (route: oral) Med Classific ation: Gastroint estinal Therapy Agents Lasix 40 mg tablet 02-08 00:00: 00 Yes [id number] DIURETIC 1 tablet DAILY 1 tablet DAILY (route: oral) Med Classific ation: Cardiovas cular Therapy Agents midodrine 10 mg tablet 02-08 00:00: 00 Yes [id number] BP 1 tablet 3 TIMES DAILY 1 tablet 3 TIMES DAILY (route: oral) Med Classific ation: Cardiovas cular Therapy Agents Novolog FlexPen U-100 Insulin aspart 100 unit/mL (3 mL) subcutaneou s 02-08 00:00: 00 Yes [id number] DM2 Per instruc tions BEFORE MEALS Per instructio ns BEFORE MEALS (route: subcutaneo us) Med Classific ation: Endocrine pantoprazol e 40 mg tablet,shayna yed release 02-08 00:00: 00 Yes [id number] REFLUX 1 tablet DAILY 1 tablet DAILY (route: oral) Med Classific ation: Gastroint estinal Therapy Agents Tresiba FlexTouch U-100 insulin 100 unit/mL (3 mL) subcutaneou s pen 02-08 00:00: 00 Yes [id number] DM2 10 unit BEDTIME 10 unit BEDTIME [...] PATIENT REPORTED WEIGHT AND NOTIFY CM / TYPESETTING MACHINE TENDER FOR MD NOTIFICATION FOR SIGNS AND SYMPTOMS [...] PATIENT REPORTED WEIGHT AND NOTIFY CM / TYPESETTING MACHINE TENDER FOR MD NOTIFICATION FOR SIGNS AND SYMPTOMS [...] End Date/Time Encounter Type Admission Type Attending [facility] Care Department Encounter ID Discharge Date Discharge Status Discharge Condition Discharge Reason Percent Goals Met 2023-01-14 00:00:00 2023-03-12 00:00:00 Outpatient GRETA DELGADO [facility] [id number] 2023-03-12 00:00:00 DISCHARGE TO HOME OR SELF CARE INDEPENDEN T IN THE [facility] OR [facility]- GOALS MET 100.00
--- OUTSIDE RECORDS SUMMARY | 2024-10-03 08:01 | XMS_ITS | Clinical Summary ---
Author Organization Unknown Care Team Providers Care Service Delivery Manager Name Role Phone RYAN TAPIA, LEI Unavailable Unavailable AUSTIN RN, NEYDA Unavailable Unavailable GUZMAN RN, GUILLERMO Unavailable Unavailable NORMA THORNE, RAPHAEL Unavailable Unavailable Payers Payer Name Policy Type Policy Number Effective Date Expira tion Date MEDICARE - 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 Active 11-12 00:00: 00 SHELTER (CURRENT) USE OF ORAL 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 DRUGS Active 11-12 00:00: 00 PUBLICATION SPECIALIST (CURRENT) USE OF INSULIN Active 11-12 00:00: [...] 10-21 00:00: 00 02-01 23:59 :00 No [id number] Per instruc tions AT BEDTIME Per instructio ns AT BEDTIME (route: subcutaneo us) Med Classific ation: Endocrine bethanechol chloride 25 mg tablet 10-18 00:00: 00 04-25 00:00 :00 No [id number] Per instruc tions TWICE DAILY Per instructio ns TWICE DAILY (route: oral) Med Classific ation: Genitouri nary Therapy Farxiga 10 mg tablet 2-04 00:00: 00 08-01 23:59 :00 No [id number] Per instruc tions DAILY Per instructio ns DAILY (route: oral) Med Classific ation: Endocrine ezetimibe 10 mg tablet 1-30 00:00: 00 08-01 23:59 :00 No [id number] Unavailable Per instruc tions DAILY Per instructio ns DAILY (route: oral) Med Classific ation: Cardiovas cular Therapy Agents Novolog FlexPen U-100 Insulin aspart 100 unit/mL (3 mL) subcutane s 1- 00:00: 00 03-21 23:59 :00 No [id number] Per instruc tions 3 TIMES DAILY Per instructio ns 3 TIMES DAILY (route: subcutaneo us) Med Classific ation: Endocrine Basaglar KwikPen U-100 Insulin 100 unit/mL (3 mL) [facility] 1-25 00:00: 00 11-12 23:59 :00 No [id number] Unavailable Per instruc tions SUBCUTANEO US ONCE EVERY Per instructio ns SUBCUTANEO US ONCE EVERY (route: subcutaneo us) Med Classific ation: Endocrine alprazolam 0.5 mg tablet 1-22 00:00: 00 02-01 23:59 :00 No [id number] Unavailable Per instruc tions TWICE DAILY NEEDED Per instructio ns TWICE DAILY NEEDED (route: oral) Med Classific ation: Central Nervous System Agents aspirin 81 mg tablet,shayna yed release - 00:00: 00 04-25 23:59 :00 No [id number] 1 tablet DAILY 1 tablet DAILY (route: oral) Med Classific ation: Hematolog ical Agents atorvastati n 80 mg tablet 3- 00:00: 00 04-25 23:59 :00 No [id number] 1 tablet BEDTIME 1 tablet BEDTIME (route: oral) Med Classific ation: Cardiovas cular Therapy Agents carvedilol 6.25 mg tablet 11-12 00:00: 00 03-01 23:59 :00 No [id number] 1 tablet 2 TIMES DAILY 1 tablet 2 TIMES DAILY (route: oral) Med Classific ation: Cardiovas cular Therapy Agents finasteride 5 mg tablet 11-12 00:00: 00 08-01 23:59 :00 No [id number] 1 tablet DAILY 1 tablet DAILY (route: oral) Med Classific ation: Genitouri nary Therapy Flomax 0.4 mg capsule 11-12 00:00: 00 08-01 23:59 :00 No [id number] 1 capsule DAILY 1 capsule DAILY (route: oral) Med Classific ation: Genitouri nary Therapy gabapentin 400 mg capsule 11-12 00:00: 00 02-01 23:59 :00 No [id number] 1 capsule 2 TIMES DAILY 1 capsule 2 TIMES DAILY (route: oral) Med Classific ation: Central Nervous System Agents iron 325 mg (65 mg iron) tablet 11-12 00:00: 00 08-01 23:59 :00 No [id number] 1 tablet DAILY 1 tablet DAILY (route: oral) Med Classific ation: Electroly te Balance-N utritiona l Products pantoprazol e 40 mg tablet,shayna yed release 11-12 00:00: 00 08-01 23:59 :00 No [id number] 1 tablet DAILY 1 tablet DAILY (route: oral) Med Classific ation: Gastroint estinal Therapy Agents spironolact one 50 mg tablet 11-12 00:00: 00 02-01 23:59 :00 No [id number] 1 tablet DAILY 1 tablet DAILY (route: oral) Med Classific ation: Cardiovas cular Therapy Agents Trulicity 0.75 mg/0.5 mL subcutaneou s pen injector 11-12 00:00: 00 08-01 23:59 :00 No [id number] 0.5 mL WEEKLY 0.5 mL WEEKLY (route: subcutaneo us) Med Classific ation: Endocrine Vitamin B-12 500 mcg tablet 11-12 00:00: 00 02-01 00:00 :00 No [id number] 2 tablet BEDTIME 2 tablet BEDTIME (route: oral) Med Classific ation: Electroly te Balance-N utritiona l Products alprazolam 0.5 mg tablet 02-08 00:00: 00 04-25 23:59 :00 No [id number] 1 tablet 2 TIMES DAILY 1 tablet 2 TIMES DAILY (route: oral) Med Classific ation: Central Nervous System Agents bumetanide 1 mg tablet 02-01 00:00: 00 02-17 23:59 :00 No [id number] 1 mg DAILY 1 mg DAILY (route: oral) Med Classific ation: Cardiovas cular Therapy Agents ciprofloxac in 500 mg tablet 02-01 00:00: 00 02-02 23:59 :00 No [id number] 1 tablet DAILY 1 tablet DAILY (route: oral) Med Classific ation: Anti-Infe ctive Agents cyanocobala min (vit B-12) 500 mcg tablet 02-01 00:00: 00 08-01 23:59 :00 No [id number] 2 tablet BEDTIME 2 tablet BEDTIME (route: oral) Med Classific ation: Electroly te Balance-N utritiona l Products gabapentin 400 mg capsule 02-08 00:00: 00 04-25 23:59 :00 No [id number] 1 capsule 2 TIMES DAILY 1 capsule 2 TIMES DAILY (route: oral) Med Classific ation: Central Nervous System Agents lactulose 20 gram/30 mL oral solution 02-01 00:00: 00 04-25 23:59 :00 No [id number] 45 mL 3 TIMES DAILY 45 mL 3 TIMES DAILY (route: oral) Med Classific ation: Gastroint estinal Therapy Agents Tresiba FlexTouch U-100 insulin 100 unit/mL (3 mL) subcutaneou s pen 02-01 00:00: 00 08-01 23:59 :00 No [id number] 6 unit BEDTIME 6 unit BEDTIME (route: subcutaneo us) Med Classific ation: Endocrine bumetanide 1 mg tablet 02-17 00:00: 00 02-21 23:59 :00 No [id number] 2 tablet DAILY 2 tablet DAILY (route: oral) Med Classific ation: Cardiovas cular Therapy Agents bumetanide 1 mg tablet 02-17 00:00: 00 03-01 23:59 :00 No [id number] 1 tablet 2 TIMES DAILY 1 tablet 2 TIMES DAILY (route: oral) Med Classific ation: Cardiovas cular Therapy Agents spironolact one 25 mg tablet 03-01 00:00: 00 04-25 00:00 :00 No [id number] 2 tablet DAILY 2 tablet DAILY (route: oral) Med Classific ation: Cardiovas cular Therapy Agents torsemide 20 mg tablet 03-01 00:00: 00 04-25 00:00 :00 No [id number] 2 tablet DAILY 2 tablet DAILY (route: oral) Med Classific ation: Cardiovas cular Therapy Agents midodrine 10 mg tablet 03-01 00:00: 00 08-01 23:59 :00 No [id number] 1 tablet DIRECTED 1 tablet DIRECTED (route: oral) Med Classific ation: Cardiovas cular Therapy Agents Humulin R Regular U-100 Insulin 100 unit/mL injection solution 03-21 00:00: 00 04-25 00:00 :00 No [id number] 20 unit 3 TIMES DAILY 20 unit 3 TIMES DAILY (route: injection) Med Classific ation: Endocrine Basaglar KwikPen U-100 Insulin 100 unit/mL (3 mL) [facility] 04-25 00:00: 00 08-01 23:59 :00 No [id number] 1 unit 3 TIMES DAILY 1 unit 3 TIMES DAILY (route: subcutaneo us) Med Classific ation: Endocrine bumetanide 1 mg tablet 04-25 00:00: 00 08-01 23:59 :00 No [id number] 1 tablet DAILY 1 tablet DAILY (route: oral) Med Classific ation: Cardiovas cular Therapy Agents spironolact one 25 mg tablet 04-25 00:00: 00 08-01 23:59 :00 No [id number] 1 tablet DAILY 1 tablet DAILY (route: oral) Med Classific ation: Cardiovas cular Therapy Agents atorvastati n 80 mg tablet 04-26 00:00: 00 08-01 23:59 :00 No [id number] 0.5 tablet BEDTIME 0.5 tablet BEDTIME (route: oral) Med Classific ation: Cardiovas cular Therapy Agents carvedilol 6.25 mg tablet 04-26 00:00: 00 08-01 23:59 :00 No [id number] 1 tablet 2 TIMES DAILY 1 tablet 2 TIMES DAILY (route: oral) Med Classific ation: Cardiovas cular Therapy Agents alprazolam 0.5 mg tablet 04-26 00:00: 00 08-01 23:59 :00 No [id number] 1 tablet 2 TIMES DAILY 1 tablet 2 TIMES DAILY (route: oral) Med Classific ation: Central Nervous System Agents gabapentin 300 mg capsule 04-26 00:00: 00 08-01 23:59 :00 No [id number] 1 capsule 2 TIMES DAILY 1 capsule 2 TIMES DAILY (route: oral) Med Classific ation: Central Nervous System Agents cyanocobala min (vit B-12) 500 mcg tablet 04-26 00:00: 00 08-01 23:59 :00 No [id number] 2 tablet BEDTIME 2 tablet BEDTIME (route: oral) Med Classific ation: Electroly te Balance-N utritiona l Products lactulose 10 gram/15 mL oral solution 04-26 00:00: 00 08-01 23:59 :00 No [id number] 30 mL 2 TIMES DAILY 30 mL [...] Goals Met 2023-11-13 00:00:00 2024-05-10 00:00:00 [facility] [id number] 2024-05-10 00:00:00 DISCHARGED /TRANSFERR ED TO A [facility] FOR INPATIENT CARE REMAINS INPATIENT AT TIME OF DISCHARGE REMAINS IN INPATIENT FACILITY AT END OF CERT PERIOD 75.76
--- OUTSIDE RECORDS SUMMARY | 2024-10-03 08:01 | XMS_ITS | Continuity of Care Document ---
Author Organization [facility] Address [address] [address] Phone Care Team Providers Care Scrap Crusher Name Role Phone NAMITA Jacobson RD, Shauna Unavailable Unavail able Advance Directives Directive Yes / No Effective Date File Name No Information Encounters Encounter Description Practice Location Reason(s) For Visit Diagnoses Date Provider Providers Copied on Encounter [facility], [address] [address], [place], [place], [id number], [place] tel:[phone] [facility] No Information Indira Villatoro. [address] [place], [address]. tel:[phone] Family History Family Member Type Diagnosis Age [...]
--- OUTSIDE RECORDS SUMMARY | 2024-10-03 08:01 | XMS_ITS | Clinical Summary ---
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 11-12 00:00: 00 [employer] (CURRENT) USE OF ASPIRIN Active 11-12 00:00: 00 [facility] (CURRENT) USE OF ORAL 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 DRUGS Active 11-12 00:00: 00 [employer] (CURRENT) USE OF INSULIN Active 11-12 00:00: [...] 10-21 00:00: 00 02-01 23:59 :00 No [id number] Per instruc tions AT BEDTIME Per instructio ns AT BEDTIME (route: subcutaneo us) Med Classific ation: Endocrine bethanechol chloride 25 mg tablet 10-18 00:00: 00 04-25 00:00 :00 No [id number] Per instruc tions TWICE DAILY Per instructio ns TWICE DAILY (route: oral) Med Classific ation: Genitouri nary Therapy Farxiga 10 mg tablet 2-04 00:00: 00 08-01 23:59 :00 No [id number] Per instruc tions DAILY Per instructio ns DAILY (route: oral) Med Classific ation: Endocrine ezetimibe 10 mg tablet 1-30 00:00: 00 08-01 23:59 :00 No [id number] Unavailable Per instruc tions DAILY Per instructio ns DAILY (route: oral) Med Classific ation: Cardiovas cular Therapy Agents Novolog FlexPen U-100 Insulin aspart 100 unit/mL (3 mL) subcutane s 1- 00:00: 00 03-21 23:59 :00 No [id number] Per instruc tions 3 TIMES DAILY Per instructio ns 3 TIMES DAILY (route: subcutaneo us) Med Classific ation: Endocrine Basaglar KwikPen U-100 Insulin 100 unit/mL (3 mL) [facility] 1-25 00:00: 00 11-12 23:59 :00 No [id number] Unavailable Per instruc tions SUBCUTANEO US ONCE EVERY Per instructio ns SUBCUTANEO US ONCE EVERY (route: subcutaneo us) Med Classific ation: Endocrine alprazolam 0.5 mg tablet 1-22 00:00: 00 02-01 23:59 :00 No [id number] Unavailable Per instruc tions TWICE DAILY NEEDED Per instructio ns TWICE DAILY NEEDED (route: oral) Med Classific ation: Central Nervous System Agents aspirin 81 mg tablet,shayna yed release - 00:00: 00 04-25 23:59 :00 No [id number] 1 tablet DAILY 1 tablet DAILY (route: oral) Med Classific ation: Hematolog ical Agents atorvastati n 80 mg tablet 3- 00:00: 00 04-25 23:59 :00 No [id number] 1 tablet BEDTIME 1 tablet BEDTIME (route: oral) Med Classific ation: Cardiovas cular Therapy Agents carvedilol 6.25 mg tablet 11-12 00:00: 00 03-01 23:59 :00 No [id number] 1 tablet 2 TIMES DAILY 1 tablet 2 TIMES DAILY (route: oral) Med Classific ation: Cardiovas cular Therapy Agents finasteride 5 mg tablet 11-12 00:00: 00 08-01 23:59 :00 No [id number] 1 tablet DAILY 1 tablet DAILY (route: oral) Med Classific ation: Genitouri nary Therapy Flomax 0.4 mg capsule 11-12 00:00: 00 08-01 23:59 :00 No [id number] 1 capsule DAILY 1 capsule DAILY (route: oral) Med Classific ation: Genitouri nary Therapy gabapentin 400 mg capsule 11-12 00:00: 00 02-01 23:59 :00 No [id number] 1 capsule 2 TIMES DAILY 1 capsule 2 TIMES DAILY (route: oral) Med Classific ation: Central Nervous System Agents iron 325 mg (65 mg iron) tablet 11-12 00:00: 00 08-01 23:59 :00 No [id number] 1 tablet DAILY 1 tablet DAILY (route: oral) Med Classific ation: Electroly te Balance-N utritiona l Products pantoprazol e 40 mg tablet,shayna yed release 11-12 00:00: 00 08-01 23:59 :00 No [id number] 1 tablet DAILY 1 tablet DAILY (route: oral) Med Classific ation: Gastroint estinal Therapy Agents spironolact one 50 mg tablet 11-12 00:00: 00 02-01 23:59 :00 No [id number] 1 tablet DAILY 1 tablet DAILY (route: oral) Med Classific ation: Cardiovas cular Therapy Agents Trulicity 0.75 mg/0.5 mL subcutaneou s pen injector 11-12 00:00: 00 08-01 23:59 :00 No [id number] 0.5 mL WEEKLY 0.5 mL WEEKLY (route: subcutaneo us) Med Classific ation: Endocrine Vitamin B-12 500 mcg tablet 11-12 00:00: 00 02-01 00:00 :00 No [id number] 2 tablet BEDTIME 2 tablet BEDTIME (route: oral) Med Classific ation: Electroly te Balance-N utritiona l Products alprazolam 0.5 mg tablet 02-08 00:00: 00 04-25 23:59 :00 No [id number] 1 tablet 2 TIMES DAILY 1 tablet 2 TIMES DAILY (route: oral) Med Classific ation: Central Nervous System Agents bumetanide 1 mg tablet 02-01 00:00: 00 02-17 23:59 :00 No [id number] 1 mg DAILY 1 mg DAILY (route: oral) Med Classific ation: Cardiovas cular Therapy Agents ciprofloxac in 500 mg tablet 02-01 00:00: 00 02-02 23:59 :00 No [id number] 1 tablet DAILY 1 tablet DAILY (route: oral) Med Classific ation: Anti-Infe ctive Agents cyanocobala min (vit B-12) 500 mcg tablet 02-01 00:00: 00 08-01 23:59 :00 No [id number] 2 tablet BEDTIME 2 tablet BEDTIME (route: oral) Med Classific ation: Electroly te Balance-N utritiona l Products gabapentin 400 mg capsule 02-08 00:00: 00 04-25 23:59 :00 No [id number] 1 capsule 2 TIMES DAILY 1 capsule 2 TIMES DAILY (route: oral) Med Classific ation: Central Nervous System Agents lactulose 20 gram/30 mL oral solution 02-01 00:00: 00 04-25 23:59 :00 No [id number] 45 mL 3 TIMES DAILY 45 mL 3 TIMES DAILY (route: oral) Med Classific ation: Gastroint estinal Therapy Agents Tresiba FlexTouch U-100 insulin 100 unit/mL (3 mL) subcutaneou s pen 02-01 00:00: 00 08-01 23:59 :00 No [id number] 6 unit BEDTIME 6 unit BEDTIME (route: subcutaneo us) Med Classific ation: Endocrine bumetanide 1 mg tablet 02-17 00:00: 00 02-21 23:59 :00 No [id number] 2 tablet DAILY 2 tablet DAILY (route: oral) Med Classific ation: Cardiovas cular Therapy Agents bumetanide 1 mg tablet 02-17 00:00: 00 03-01 23:59 :00 No [id number] 1 tablet 2 TIMES DAILY 1 tablet 2 TIMES DAILY (route: oral) Med Classific ation: Cardiovas cular Therapy Agents spironolact one 25 mg tablet 03-01 00:00: 00 04-25 00:00 :00 No [id number] 2 tablet DAILY 2 tablet DAILY (route: oral) Med Classific ation: Cardiovas cular Therapy Agents torsemide 20 mg tablet 03-01 00:00: 00 04-25 00:00 :00 No [id number] 2 tablet DAILY 2 tablet DAILY (route: oral) Med Classific ation: Cardiovas cular Therapy Agents midodrine 10 mg tablet 03-01 00:00: 00 08-01 23:59 :00 No [id number] 1 tablet DIRECTED 1 tablet DIRECTED (route: oral) Med Classific ation: Cardiovas cular Therapy Agents Humulin R Regular U-100 Insulin 100 unit/mL injection solution 03-21 00:00: 00 04-25 00:00 :00 No [id number] 20 unit 3 TIMES DAILY 20 unit 3 TIMES DAILY (route: injection) Med Classific ation: Endocrine Basaglar KwikPen U-100 Insulin 100 unit/mL (3 mL) [facility] 04-25 00:00: 00 08-01 23:59 :00 No [id number] 1 unit 3 TIMES DAILY 1 unit 3 TIMES DAILY (route: subcutaneo us) Med Classific ation: Endocrine bumetanide 1 mg tablet 04-25 00:00: 00 08-01 23:59 :00 No [id number] 1 tablet DAILY 1 tablet DAILY (route: oral) Med Classific ation: Cardiovas cular Therapy Agents spironolact one 25 mg tablet 04-25 00:00: 00 08-01 23:59 :00 No [id number] 1 tablet DAILY 1 tablet DAILY (route: oral) Med Classific ation: Cardiovas cular Therapy Agents atorvastati n 80 mg tablet 04-26 00:00: 00 08-01 23:59 :00 No [id number] 0.5 tablet BEDTIME 0.5 tablet BEDTIME (route: oral) Med Classific ation: Cardiovas cular Therapy Agents carvedilol 6.25 mg tablet 04-26 00:00: 00 08-01 23:59 :00 No [id number] 1 tablet 2 TIMES DAILY 1 tablet 2 TIMES DAILY (route: oral) Med Classific ation: Cardiovas cular Therapy Agents alprazolam 0.5 mg tablet 04-26 00:00: 00 08-01 23:59 :00 No [id number] 1 tablet 2 TIMES DAILY 1 tablet 2 TIMES DAILY (route: oral) Med Classific ation: Central Nervous System Agents gabapentin 300 mg capsule 04-26 00:00: 00 08-01 23:59 :00 No [id number] 1 capsule 2 TIMES DAILY 1 capsule 2 TIMES DAILY (route: oral) Med Classific ation: Central Nervous System Agents cyanocobala min (vit B-12) 500 mcg tablet 04-26 00:00: 00 08-01 23:59 :00 No [id number] 2 tablet BEDTIME 2 tablet BEDTIME (route: oral) Med Classific ation: Electroly te Balance-N utritiona l Products lactulose 10 gram/15 mL oral solution 04-26 00:00: 00 08-01 23:59 :00 No [id number] 30 mL 2 TIMES DAILY 30 mL [...] CARE WILL BE ESTABLISHED THAT MEETS PATIENT'S [facility] NEEDS AND INCLUDES PATIENT GOAL FOR HOME [...] Date/Time Encounter Type Admission Type Attending [facility] Care Facility Care Department Encounter ID Discharge Date Discharge Status Discharge Condition Discharge Reason Percent Goals Met 2023-11-13 00:00:00 2024-05-10 00:00:00 [facility] R[facility] [id number] 2024-05-10 00:00:00 DISCHARGED /TRANSFERR ED TO A [facility] FOR INPATIENT CARE REMAINS INPATIENT AT TIME OF DISCHARGE REMAINS IN INPATIENT FACILITY AT END OF CERT PERIOD 75.76
== END 2024-10-03 07:59 | disposition home or self-care (01) ==
LOC: HO.LHD 07:58
PROVIDERS: Visit Provider Internal Medicine
DX: Z13.89 Encounter for screening for other disorder (principal)

== ENCOUNTER 2024-10-10 07:34 | Outpatient (REF) | payer MEDICARE, SELFPAY ==
--- OUTSIDE RECORDS SUMMARY | 2024-10-10 07:37 | XMS_ITS | Continuity of Care Document ---
Author Organization [facility] Address [address] [address] Phone Care Team Providers Care Station Cleaning Porter Name Role Phone NAMITA Jacobson RD, Shauna Unavailable Unavail able Advance Directives Directive Yes / No Effective Date File Name No Information Encounters Encounter Description Practice Location Reason(s) For Visit Diagnoses Date Provider Providers Copied on Encounter [facility], [address] [address], [place], [place], [id number], [place] tel:[phone] [facility] No Information Indira Villatoro. [address] [place], [address]. tel:[phone] Family History Family Member Type Diagnosis Age [...]
--- OUTSIDE RECORDS SUMMARY | 2024-10-10 07:37 | XMS_ITS | Clinical Summary ---
Author Organization [facility] Address [address] [facility] [address] [place] [address] Phone Care Team Providers Care Peripheral Equipment Operator Name Role Phone Roberto Carlos Cisneros Primary Care Provider [phone] Allergies Active Allergy Reactions Criticality Noted Date Comments Iodinated Contrast Media Other (see comments) 01/14/2023 Latex Other (see comments) 01/14/2023 Pregabalin Other (see comments) 01/16/2023 Tizanidine 01/16/2023 Other reaction(s): hallucination Lisinopril 07/02/2022 Medications atorvastatin (LIPITOR) 80 MG tablet Take 80 mg by mouth 1 (one) time each day Active metoprolol succinate XL (TOPROL XL) 50 MG 24 hr tablet Take 100 mg by mouth 1 (one) time each day Do not crush or chew. Active aspirin (ST LULY) 81 MG EC tablet Take 81 mg by mouth 1 (one) time each day Active ALPRAZolam (XANAX) 0.5 MG tablet Take 0.5 mg by mouth in the morning and 0.5 mg in the evening. Active insulin aspart (NovoLOG FLEXPEN) 100 UNIT/ML injection Inject under the skin 3 (three) times a day before meals Active omeprazole (PriLOSEC) [address] capsule Take 20 mg by mouth 1 (one) time each day Do not crush or chew. Active Insulin Degludec (TRESIBA FLEXTOUCH SC) Inject under the skin Active Dulaglutide (Trulicity) 0.75 MG/0.5ML solution pen-injector Inject under the skin Active ezetimibe (ZETIA) 10 MG tablet Take 10 mg by mouth 1 (one) time each day Active dicyclomine (BENTYL) 20 MG tablet Take 20 mg by mouth every 6 (six) hours Active acetaminophen (TYLENOL) 325 MG tablet Take 650 mg by mouth every 6 (six) hours if needed for mild pain Active ferrous sulfate 325 (65 Fe) MG EC tablet Take 325 mg by mouth in the morning and 325 mg at noon and 325 mg in the evening. Take with meals. Do not crush, chew, or split. . Active gabapentin (NEURONTIN) 400 MG capsule Take 400 mg by mouth in the morning and 400 mg in the evening and 400 mg before bedtime. Active sucralfate (CARAFATE) 1 g tablet Take 1 g by mouth in the morning and 1 g at noon and 1 g in the evening and 1 g before bedtime. Active tamsulosin (FLOMAX) 0.4 MG 24 hr capsule Take 0.4 mg by mouth 1 (one) time each day Active torsemide (DEMADEX) 20 MG tablet Take 20 mg by mouth 1 (one) time each day Active clopidogrel (PLAVIX) 75 MG tablet Take 75 mg by mouth 1 (one) time each day Active bethanechol (URECHOLINE) 25 MG tablet Take 25 mg by mouth in the morning and 25 mg in the evening. 12/30/2022 Active dexamethasone (DECADRON) 4 MG tablet 01/01/2023 Active traMADol (ULTRAM) 50 MG tablet TAKE 1/2 TABLET BY MOUTH EVERY 6 HOURS NEEDED FOR PAIN 01/10/2023 Active oxyCODONE (ROXICODONE) 5 MG immediate release tablet 01/01/2023 Acti ve Dapagliflozin Propanediol (Farxiga) 10 MG tablet Take 10 mg by mouth 1 (one) time each day in the morning 30 tablet 5 01/19/2024 Active Active Problems Problem Noted Date Diagnosed Date Congestive heart failure 01/16/2023 Essential hypertension 01/16/2023 Hyperlipidemia 01/16/2023 Iron deficiency anemia 01/16/2023 Malignant neoplasm of prostate 01/16/2023 Overview (01/16/2023): Johnnie with 2 doses in September 2012 and again in February 2013. Urologist is Dr. Zafar Dudley at [facility] ). [place] with 2 doses in September 2012 and again in February 2013. Urologist is Dr. Zafar Dudley at [facility] ). 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 Irritable bowel syndrome 09/14/2021 Atrioventricular block 09/14/2021 Presence of cardiac pacemaker 09/14/2021 Coronary arteriosclerosis 08/01/2013 Old myocardial infarction 07/30/2013 Family History Medical History Relation Comments Heart disease Father Stroke Father Cancer Mother Heart disease Mother Cancer Sister Relation Status Comments Father Mother Sister Social History Tobacco Use Types Packs/Day Years Used Date Smoking Tobacco: Never Smokeless Tobacco: Never Tobacco Cessation:Counseling Given: Not Answered Alcohol Use Standard Drinks/Week Comments Not Currently 0 (1 standard drink = 0.6 oz pur e alcohol) Quit 2012 Sex and Gender Information Value Date Recorded Sex Assigned at Not on file Legal Sex Male 5:14 PM EST Gender Identity Not on file Sexual Orientation Not on file Last Filed Vital Signs Vital Sign Reading Time Taken Comments Blood Pressure 138/50 07/02/2022 2:48 PM EDT Pulse 70 07/02/2022 2:48 PM EDT Temperature - - Respiratory Rate - - Oxygen Saturation 98% 07/02/2022 2:48 PM EDT Inhaled Oxygen Concentration - - Weight 96.2 kg (212 lb) 07/02/2022 2:48 PM EDT Height - - Body Mass Index - - Plan of Treatment Health Maintenance Due Date Last Done Comments Hepatitis B Vaccine (1 of 3 - Risk 3-dose series) 03/16 Pneumococcal Vaccine: 65+ Years (2 of 2 - PCV) 021 07/16/2020 Diabetes: Hemoglobin A1C 06/13/2022 Diabetes: Ophthalmology Exam 06/13/2022 Diabetes: Pedal Pulse Checked 06/13/2022 Diabetes: Sensory Foot Exam 06/13/2022 Diabetes: Visual Foot Exam 06/13/2022 Influenza Vaccine (#1) 2024 Insurance [facility] MEDICARE [facility] MEDICARE Care Teams Peripheral Equipment Operator Relationship Specialty Start Date End Date Roberto Carlos Cisneros PA [address] [place] [address], [address] [place] [address] PCP - General Physician [employer] Project Manager 07/02/22
== END 2024-10-10 07:35 | disposition home or self-care (01) ==
LOC: HO.LHD 07:34
PROVIDERS: Visit Provider Internal Medicine
DX: Z13.89 Encounter for screening for other disorder (principal)

== ENCOUNTER 2024-10-10 08:00 | Outpatient (RCR) | payer MEDICARE, SELFPAY ==
--- NOTE | 2020-08-27 13:39 | PM.HEMONCPN ---
Medical Summary - Medical Summary Date of Service: 08/28/20 Chief complaint: Follow-up Medical Summary: Diagnosis: Iron deficiency anemia Mr. Lopes has an extensive medical history, with the frequent hospitalizations in the last 2 years. He has a long-standing history of type 2 diabetes mellitus, coronary artery disease. In August 2012, he was diagnosed with prostate cancer, underwent laser surgery, followed by radiation therapy, which he completed in April 2014. He is currently on Trelstar (LHRH agonist therapy) every 6 months under the care of Dr. Dudley. He was admitted in June for rectal bleeding and anemia. This was diagnosed as radiation proctitis. He has a history of blood transfusion in 2012 when he was admitted for Staphylococcus aureus sepsis and anemia. He was told of leukopenia for many years and reviewing [employer], his white count has ranged from 3 to 4 thousand dating back to 2003 with normal counts in 2005. Since 2006 or 2007, it has declined and more recently since 2012, it has stayed under 5000 consistently. He has developed thrombocytopenia since 2012. Prior to that, platelet counts have been normal. His hemoglobin has always been low; back in 2013 it was in the 13 g/dL range but since 2005 it has gone up and down ranging between been 10 to 11 g/dL and in 2013 it has been below 10 g/dL. He does have a history of excess alcohol consumption for many years and he quit in 2013. Ultrasound of the abdomen in March 2014 revealed enlarged liver, showing diffuse liver disease and splenomegaly with spleen size of 19 cm. Hematology consultation on August 23, 2014 revealed anemia with a hemoglobin of 9.4 g/dL, white count of 2.3, platelets of 103,000. Iron studies showed a ferritin of 8 with iron saturation of 20%. LDH normal. LFTs normal. Vitamin B12 and folate levels normal. Beta-2 microglobulin slightly elevated at 3.05. Serum protein electrophoresis revealed monoclonal protein, which was too small to quantitate. Immunoglobulin levels were normal. Rheumatoid factor less than 15 in the past. Repeat ultrasound of abdomen performed September 11, 2014 showed hepatosplenomegaly similar to previous exam. Dilated portal vein suggestive of portal hypertension. Thickened, edematous gallbladder similar to March 2014 exam. The patient was admitted again in May 2015 with symptoms of painful hematuria. He developed significant anemia with a hemoglobin dropping to 7.7 g/dL for which he received 2 to 3 units of blood transfusion. Interval History Interval history: Patient is here in follow-up. He is doing okay but a bit tired about his ongoing issues with gastrointestinal problems. He required another banding procedure, this was done a week ago by promotions coordinator. He denies any hematemesis or rectal bleeding. He has not received any iron treatment for several months. He reports fatigue but no chest pain or shortness of breath. He reports excess daytime sleepiness. He denies nausea or emesis, no fever or chills. Review of Systems - Constitutional Reports as per HPI - Cardiovascular Reports no additional cardiovascular complaints - Respiratory Reports no additional respiratory complaints [facility] Medical History: Medical History (Last Updated 08/27/20 @ 13:56 by Tonya Dockery RN) Aortic stenosis CAD (coronary artery disease) Chronic fatigue DMII (diabetes mellitus, type 2) KOEHLER (dyspnea on exertion) Esophageal varices without bleeding GERD (gastroesophageal reflux disease) HTN (hypertension) IBS (irritable colon syndrome) Iron deficiency anemia On beta kayy at home ANUJA on CPAP Polyneuropathy Prostate cancer Spinal stenosis Varices of esophagus determined by endoscopy Family History: Family History (Last Reviewed 08/20/20 @ 08:10 by Susanne Nixon) Father CVD (cardiovascular disease) Past heart attack Mother CVD (cardiovascular disease) Brain cancer Heart problem Daughter Breast cancer Sister Breast cancer Son Alive and well Family/Other Myocardial infarction Liver cancer Surgical History: Surgical History (Last Reviewed 08/20/20 @ 08:10 by Susanne Nixon) History of heart artery stent History of surgery History of surgery History of transurethral resection of prostate Hx of colonoscopy Hx of esophagogastroduodenoscopy Oncology Screenings - ECOG Performance Status ECOG Performance Status: 1 Home Medications and Allergies Home Medications Medication Instructions Recorded Confirmed Type alprazolam 0.5 mg tablet 0.5 mg PO BID PRN 07/16/20 08/14/20 History atorvastatin 80 mg tablet 80 mg PO DAILY 07/16/20 08/14/20 History dulaglutide 0.75 mg/0.5 mL 1.5 mg SUBCUT QWEEK 07/16/20 08/14/20 History subcutaneous pen injector metformin 1,000 mg tablet 1,000 mg PO BID 07/16/20 08/14/20 History metoprolol tartrate 50 mg tablet 75 mg PO BID 07/16/20 08/14/20 History omeprazole 20 mg capsule,delayed 20 mg PO BID 07/16/20 08/14/20 History release sucralfate 1 gram tablet 1 g PO BID 07/16/20 08/14/20 History tamsulosin 0.4 mg capsule 0.4 mg PO DAILY 07/16/20 08/14/20 History torsemide 20 mg tablet 20 mg PO DAILY 07/16/20 08/14/20 History aspirin 81 mg PO DAILY 08/14/20 08/14/20 History cyanocobalamin (vitamin B-12) 1,000 mcg PO DAILY 08/14/20 08/14/20 History gemfibrozil 1 tab PO BID 08/14/20 08/14/20 History ranitidine HCl 150 mg PO BEDTIME 08/14/20 08/14/20 History Allergies Allergy/AdvReac Type Severity Reaction Status Date / Time lisinopril [From ZESTRIL] Allergy Severe UNABLE TO Verified 07/16/20 16:24 BREATH dextran 40 [DEXTRAN 40] Allergy Intermediate tachycardia Verified 07/16/20 16:24 latex [LATEX] Allergy Mild BLISTERS Verified 07/16/20 16:24 cyclobenzaprine Allergy Unknown Unknown Verified 07/16/20 16:24 [From Flexeril] egg Allergy Unknown unknown Verified 07/16/20 16:24 Iodinated Contrast Media Allergy Unknown UNKNOWN Verified 07/16/20 16:24 [CONTRAST,IV] pregabalin AdvReac Unknown hallucinati Verified 07/16/20 16:24 ons Zanaflex AdvReac Unknown hallucinati Uncoded 04/09/20 00:00 on Exam - Constitutional Present: no acute distress - Routine HEENT Exam Head: Present: normal inspection - Routine Neck Exam Absent: lymphadenopathy - Routine Respiratory Exam Present: CTAB - Routine Cardiovascular Exam Cardiovascular: Present: S1, S2 Data - Labs CBC & Chem 7: 08/27/20 13:39 Progress Note: A/P (1) Anemia Status: Chronic Assessment and plan: 1. A 75-year-old male with iron deficiency anemia. He had rectal bleeding secondary to radiation proctitis and cystitis. He is on ferrous sulfate twice a day. Negative for celiac antibodies. He had an allergic reaction to iron dextran. Developed upper GI bleeding related to esophageal varices. He has undergone banding. He has been on IV Ferrlecit intermittently. He also received blood transfusion. 2. Pancytopenia, leukopenia and thrombocytopenia, which has been chronic and stable. He has evidence of hepatosplenomegaly, portal hypertension, which is probably contributing to his cytopenias. MRI abdomen in December 2019 showed chronic cirrhosis, portal venous hypertension and splenomegaly. No evidence of HCC or other liver lesions. 3. Vitamin B12 deficiency, pernicious anemia. He is positive for intrinsic factor antibodies. He is on oral B12 supplementation and adequate blood levels. Anemia has improved. I will schedule him for 10 more treatments of IV Ferrlecit. Anemia is stable he has persistent iron deficiency. Follow-up in 6 months. - Time Spent With Patient Total time spent is greater than 50% in coordination of care (as documented) at patient's floor/unit and/or counseling patient: 15 - 24 minutes
[2020-08-27 13:48] VITALS: BMI 30.3
[2020-08-27 13:49] VITALS: BP 170/70; RESP 12; TEMP 36.9; O2SAT 96
[2020-08-27 14:30] LABS: Hematocrit 32.7 % (42-52); Lymphocytes Absolute Auto 0.5 X10*3/uL (1.2-4.9); MANUAL DIFF FLAG SCAN; PLT CLUMP 1; SCAN SMEAR FLAG 1
[2020-08-27 14:32] LABS: Basophils Percent Auto 0.9 % (0-2); Eosinophils Absolute Auto 0.2 X10*3/uL (0.0-0.4); Eosinophils Percent Auto 3.4 % (0-4); Hemoglobin 10.5 g/dl (14.0-18.0); Imm Gran Abs Auto 0.01 X10*3/uL (0.00-0.03); Imm Gran Pct Auto 0.2 % (0.0-0.4); Mean Corpuscular Hemoglobin 30.9 pg (27.0-33.0); Mean Corpuscular Volume 96.2 fL (80-98); Mean Platelet Volume 11.9 fL (9.4-12.4); Monocytes Absolute Auto 0.6 X10*3/uL (0.1-1.2); Monocytes Percent Auto 12.3 % (2-11); Neutrophils Absolute Auto 3.4 X10*3/uL (2.0-8.3); Neutrophils Percent Auto 72.2 % (45-73); Red Cell Distribution Width 14.6 % (11.0-16.0); White Blood Count 4.7 X10*3/uL (4.8-10.8)
[2020-08-27 14:34] LABS: Platelet Count 99 X10*3/uL (160-400)
[2020-08-27 14:39] LABS: Iron 57 mcg/dL (45-160); Percent Iron Saturation 12 % (15-50); Total Iron Binding Capacity 470 mcg/dL (228-428); Unsaturated Iron Binding 413 ug/dL
[2020-08-27 14:56] LABS: Mean Corpuscular HGB Conc 32.1 g/dl (31.0-36.0); SLIDE REVIEW VERIFIED
[2021-02-25 12:29] VITALS: BP 155/68; PULSE 65; RESP 18; TEMP 36.8; O2SAT 97; BMI 31.7
[2021-02-25 13:41] LABS: Hematocrit 32.4 % (42-52); Hemoglobin 10.2 g/dl (14.0-18.0); Mean Corpuscular HGB Conc 31.5 g/dl (31.0-36.0); Mean Corpuscular Hemoglobin 29.9 pg (27.0-33.0); Platelet Count 89 X10*3/uL (160-400); Red Blood Count 3.41 X10*6/uL (4.60-5.80); Red Cell Distribution Width 15.2 % (11.0-16.0); White Blood Count 3.8 X10*3/uL (4.8-10.8)
[2021-02-25 14:11] LABS: Iron 47 mcg/dL (45-160); Percent Iron Saturation 11 % (15-50); Total Iron Binding Capacity 436 mcg/dL (228-428); Unsaturated Iron Binding 389 ug/dL
--- NOTE | 2021-02-25 14:28 | PM.HEMONCPN ---
Medical Summary - Medical Summary Date of Service: 02/25/21 Chief complaint: fatigue Medical Summary: Diagnosis: Iron deficiency anemia Mr. Lopes has an extensive medical history, with the frequent hospitalizations in the last 2 years. He has a long-standing history of type 2 diabetes mellitus, coronary artery disease. In August 2012, he was diagnosed with prostate cancer, underwent laser surgery, followed by radiation therapy, which he completed in April 2014. He is currently on Trelstar (LHRH agonist therapy) every 6 months under the care of Dr. Dudley. He was admitted in June for rectal bleeding and anemia. This was diagnosed as radiation proctitis. He has a history of blood transfusion in 2012 when he was admitted for Staphylococcus aureus sepsis and anemia. He was told of leukopenia for many years and reviewing [employer], his white count has ranged from 3 to 4 thousand dating back to 2003 with normal counts in 2005. Since 2006 or 2007, it has declined and more recently since 2012, it has stayed under 5000 consistently. He has developed thrombocytopenia since 2012. Prior to that, platelet counts have been normal. His hemoglobin has always been low; back in 2013 it was in the 13 g/dL range but since 2005 it has gone up and down ranging between been 10 to 11 g/dL and in 2013 it has been below 10 g/dL. He does have a history of excess alcohol consumption for many years and he quit in 2013. Ultrasound of the abdomen in March 2014 revealed enlarged liver, showing diffuse liver disease and splenomegaly with spleen size of 19 cm. Hematology consultation on August 23, 2014 revealed anemia with a hemoglobin of 9.4 g/dL, white count of 2.3, platelets of 103,000. Iron studies showed a ferritin of 8 with iron saturation of 20%. LDH normal. LFTs normal. Vitamin B12 and folate levels normal. Beta-2 microglobulin slightly elevated at 3.05. Serum protein electrophoresis revealed monoclonal protein, which was too small to quantitate. Immunoglobulin levels were normal. Rheumatoid factor less than 15 in the past. Repeat ultrasound of abdomen performed September 11, 2014 showed hepatosplenomegaly similar to previous exam. Dilated portal vein suggestive of portal hypertension. Thickened, edematous gallbladder similar to March 2014 exam. The patient was admitted again in May 2015 with symptoms of painful hematuria. He developed significant anemia with a hemoglobin dropping to 7.7 g/dL for which he received 2 to 3 units of blood transfusion. Interval History Interval history: patient is here in follow-up. He reports worsening fatigue. He is taking oral iron but not had IV in several months. He denies any GI bleeding. He has being closely followed by . He went for a liver ultrasound today. He denies nausea, abdominal discomfort, hematochezia melena. No exertional chest pain or shortness of breath. He bruised himself on his left shoulder while doing some work in his kitchen. Review of Systems - Constitutional Reports as per HPI, Reports no additional constitutional complaints - Cardiovascular Reports no additional cardiovascular complaints - Respiratory Reports no additional respiratory complaints - Gastrointestinal Reports no additional gastrointestinal complaints [facility] Medical History: Medical History (Last Reviewed 02/18/21 @ 09:20 by Matthieu Pradhan) Aortic stenosis CAD (coronary artery disease) Chronic fatigue COVID-19 vaccine series completed Diabetes type 2, uncontrolled Diabetic nephropathy associated with type 2 diabetes mellitus Diabetic 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 associated with type 2 diabetes mellitus DMII (diabetes mellitus, type 2) KOEHLER (dyspnea on exertion) Dyslipidemia Esophageal varices without bleeding GERD (gastroesophageal reflux disease) HTN (hypertension) Hypertension IBS (irritable colon syndrome) Iron deficiency anemia 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) use of insulin On beta kayy at home ANUJA on CPAP Polyneuropathy Prostate cancer Spinal stenosis Varices of esophagus determined by endoscopy Family History: Family History (Last Reviewed 02/18/21 @ 09:20 by Matthieu Pradhan) Father CVD (cardiovascular disease) Past heart attack Mother CVD (cardiovascular disease) Brain cancer Heart problem Daughter Breast cancer Sister Breast cancer Son Alive and well Family/Other Myocardial infarction Liver cancer Surgical History: Surgical History (Last Reviewed 02/18/21 @ 09:20 by Matthieu Pradhan) H/O cataract extraction History of colonoscopy History of heart artery stent History of surgery History of surgery History of transurethral resection of prostate Hx of colonoscopy Hx of endoscopy Hx of esophagogastroduodenoscopy Social History: Social History (Last Reviewed 02/18/21 @ 09:20 by Matthieu Pradhan) Living Situation History: Household Members: Spouse Are you a primary medicare sales executive to a significant other at home: No Do you presently have visiting nurse or other home services: No Alcohol History: Alcohol intake: never Oncology Screenings - ECOG Performance Status ECOG Performance Status: 1 Home Medications and Allergies Home Medications Medication Instructions Recorded Confirmed Type metoprolol tartrate 50 mg tablet 75 mg PO BID 07/16/20 01/30/21 History torsemide 20 mg tablet 20 mg PO DAILY 07/16/20 01/30/21 History aspirin 81 mg PO DAILY 08/14/20 01/30/21 History cyanocobalamin (vitamin B-12) 1,000 mcg PO DAILY 08/14/20 01/30/21 History ferrous sulfate 325 mg (65 mg 325 mg PO BID 10/17/20 01/30/21 History iron) tablet folic acid 1 mg tablet 1 mg PO DAILY 10/17/20 01/30/21 History Allergies Allergy/AdvReac Type Severity Reaction Status Date / Time lisinopril [From ZESTRIL] Allergy Severe UNABLE TO Verified 01/30/21 14:52 BREATH dextran 40 [DEXTRAN 40] Allergy Intermediate tachycardia Verified 01/30/21 14:52 latex [LATEX] Allergy Mild BLISTERS Verified 01/30/21 14:52 cyclobenzaprine Allergy Unknown Unknown Verified 01/30/21 14:52 [From Flexeril] egg Allergy Unknown unknown Verified 01/30/21 14:52 Iodinated Contrast Media Allergy Unknown UNKNOWN Verified 01/30/21 14:52 [CONTRAST,IV] tizanidine [From Zanaflex] Allergy Unknown Hallucinati Verified 01/30/21 14:52 ons pregabalin AdvReac Unknown hallucinati Verified 01/30/21 14:52 ons Exam Vital signs: Vital Signs Temp 98.2 F 02/25/21 12:29 Pulse 65 02/25/21 12:29 Resp 18 02/25/21 12:29 BP 155/68 H 02/25/21 12:29 Pulse Ox 97 02/25/21 12:29 Intake & Output 02/24/21 02/25/21 02/25/21 18:59 06:59 18:59 Other: Weight 97.4 kg [place] Weight in Grams [id number] Weight 97.4 kg Body Mass Index 31.7 - Constitutional Present: no acute distress - Routine HEENT Exam Head: Present: normal inspection - Routine Neck Exam Absent: lymphadenopathy - Routine Respiratory Exam Present: CTAB - Routine Cardiovascular Exam Cardiovascular: Present: S1, S2 Data - Labs CBC & Chem 7: 02/25/21 13:11 Labs: 08/27/20 13:39 SLIDE REVIEW Routine 08/27/20 13:39 Complete Blood Count Auto Diff Routine IRON PROFILE Routine 02/25/21 13:11 Complete Blood Count no Diff Routine IRON PROFILE Routine Laboratory Last Values WBC 3.8 X10*3/uL (4.8-10.8) L 02/25/21 13:11 RBC 3.41 X10*6/uL (4.60-5.80) L 02/25/21 13:11 Hgb 10.2 g/dl (14.0-18.0) L 02/25/21 13:11 Hct 32.4 % (42-52) L 02/25/21 13:11 MCV 95.0 fL (80-98) 02/25/21 13:11 MCH 29.9 pg (27.0-33.0) 02/25/21 13:11 MCHC 31.5 g/dl (31.0-36.0) 02/25/21 13:11 RDW 15.2 % (11.0-16.0) 02/25/21 13:11 Plt Count 89 X10*3/uL (160-400) L 02/25/21 13:11 MPV 11.0 fL (9.4-12.4) 02/25/21 13:11 Immature Gran % (Auto) 0.2 % (0.0-0.4) 08/27/20 13:39 Neut % (Auto) 72.2 % (45-73) 08/27/20 13:39 Lymph % (Auto) 11.0 % (20-40) L 08/27/20 13:39 [place] % (Auto) 12.3 % (2-11) H 08/27/20 13:39 Eos % (Auto) 3.4 % (0-4) 08/27/20 13:39 Baso % (Auto) 0.9 % (0-2) 08/27/20 13:39 Lymph # (Auto) 0.5 X10*3/uL (1.2-4.9) L 08/27/20 13:39 [place] # (Auto) 0.6 X10*3/uL (0.1-1.2) 08/27/20 13:39 Eos # (Auto) 0.2 X10*3/uL (0.0-0.4) 08/27/20 13:39 Baso # (Auto) 0.0 X10*3/uL (0.0-0.2) 08/27/20 13:39 Abs Immat Gran (auto) 0.01 X10*3/uL (0.00-0.03) 08/27/20 13:39 Absolute Neuts (auto) 3.4 X10*3/uL (2.0-8.3) 08/27/20 13:39 Absolute Nucleated RBC 0.000 X10*3/uL (0.0-0.012) 02/25/21 13:11 Nucleated RBC % (auto) 0.0 /100WBC (0.0-0.2) 02/25/21 13:11 Smear Tech's Comments VERIFIED 08/27/20 13:39 Iron 47 mcg/dL (45-160) 02/25/21 13:11 TIBC 436 mcg/dL (228-428) H 02/25/21 13:11 % Saturation 11 % (15-50) L 02/25/21 13:11 Unsat Iron Binding 389 ug/dL 02/25/21 13:11 Progress Note: A/P (1) Anemia Status: Chronic Assessment and plan: 1. A 75-year-old male with iron deficiency anemia. He had rectal bleeding secondary to radiation proctitis and cystitis. He is on ferrous sulfate twice a day. Negative for celiac antibodies. He had an allergic reaction to iron dextran. Developed upper GI bleeding related to esophageal varices. He has undergone banding. He has been on IV Ferrlecit intermittently. He also received blood transfusion. 2. Pancytopenia, leukopenia and thrombocytopenia, which has been chronic and stable. He has evidence of hepatosplenomegaly, portal hypertension, which is probably contributing to his cytopenias. MRI abdomen in December 2019 showed chronic cirrhosis, portal venous hypertension and splenomegaly. No evidence of HCC or other liver lesions. He had a liver ultrasound February 2021. 3. Vitamin B12 deficiency, pernicious anemia. He is positive for intrinsic factor antibodies. He is on oral B12 supplementation and adequate blood levels. Ferrlecit 125 mg IV weekly times 6 starting this week is being scheduled. Follow-up in 6 months. - Time Spent With Patient Total time spent is greater than 50% in coordination of care (as documented) at patient's floor/unit and/or counseling patient: 15 - 24 minutes
--- NOTE | 2021-02-25 15:02 | MHC.HEMONCMA ---
Patient came in for a follow up, states that he is doing well. Clinical summary was reviewed and updated. Patient had labs and will return in 6 months for a follow up.
--- NOTE | 2021-06-14 14:56 | MHC.HEMONCMA ---
Dr Nielsen ordered IV Ferrilicit for the patient, the order has been faxed to [facility] for her to give me a time/date.
--- NOTE | 2021-06-28 12:51 | MHC.HEMONC ---
Patient stopped by the department wondering if his Iron level of 34 on 06/11/21 had been addressed. He was informed that Dr Nielsen ordered the Iron infusion on 06/14 and that he should have been contacted by [facility]. He stated that he was and that he was going for the infusion today. He stated that he became concerned when his PCP called him to say that his Iron level should be addressed immediately. Patient departed the unit.
[2021-08-27 13:30] VITALS: BP 182/78; PULSE 68; RESP 16; TEMP 36.4; O2SAT 96; BMI 30.7
[2021-08-27 13:54] LABS: MANUAL DIFF FLAG NO
[2021-08-27 13:59] LABS: Basophils Percent Auto 0.9 % (0-2); Eosinophils Absolute Auto 0.1 X10*3/uL (0.0-0.4); Eosinophils Percent Auto 3.1 % (0-4); Hematocrit 32.1 % (42.0-52.0); Hemoglobin 10.1 g/dl (14.0-18.0); Imm Gran Abs Auto 0.03 X10*3/uL (0.00-0.03); Imm Gran Pct Auto 0.7 % (0.0-0.4); Lymphocytes Absolute Auto 0.5 X10*3/uL (1.2-4.9); Mean Corpuscular HGB Conc 31.5 g/dl (31.0-36.0); Mean Corpuscular Volume 98.5 fL (80.0-98.0); Mean Platelet Volume 11.1 fL (9.4-12.4); Monocytes Absolute Auto 0.4 X10*3/uL (0.1-1.2); Monocytes Percent Auto 9.6 % (2-11); Neutrophils Absolute Auto 3.3 x10*3/uL (2.0-8.3); Neutrophils Percent Auto 73.7 % (45-73); Red Blood Count 3.26 X10*6/uL (4.60-5.80); Red Cell Distribution Width 16.8 % (11.0-16.0); White Blood Count 4.5 X10*3/uL (4.8-10.8)
[2021-08-27 14:03] LABS: Platelet Count 88 X10*3/uL (160-400)
[2021-08-27 14:14] LABS: Iron 45 mcg/dL (45-160); Percent Iron Saturation 10 % (15-50); Total Iron Binding Capacity 440 mcg/dL (228-428); Unsaturated Iron Binding 395 ug/dL
--- NOTE | 2021-08-27 17:15 | PM.HEMONCPN ---
Medical Summary - Medical Summary Date of Service: 08/27/21 Chief complaint: Follow-up Medical Summary: Diagnosis: Iron deficiency anemia Mr. Lopes has an extensive medical history, with the frequent hospitalizations in the last 2 years. He has a long-standing history of type 2 diabetes mellitus, coronary artery disease. In August 2012, he was diagnosed with prostate cancer, underwent laser surgery, followed by radiation therapy, which he completed in April 2014. He is currently on Trelstar (LHRH agonist therapy) every 6 months under the care of Dr. Dudley. He was admitted in June for rectal bleeding and anemia. This was diagnosed as radiation proctitis. He has a history of blood transfusion in 2012 when he was admitted for Staphylococcus aureus sepsis and anemia. He was told of leukopenia for many years and reviewing [employer], his white count has ranged from 3 to 4 thousand dating back to 2003 with normal counts in 2005. Since 2006 or 2007, it has declined and more recently since 2012, it has stayed under 5000 consistently. He has developed thrombocytopenia since 2012. Prior to that, platelet counts have been normal. His hemoglobin has always been low; back in 2013 it was in the 13 g/dL range but since 2005 it has gone up and down ranging between been 10 to 11 g/dL and in 2013 it has been below 10 g/dL. He does have a history of excess alcohol consumption for many years and he quit in 2013. Ultrasound of the abdomen in March 2014 revealed enlarged liver, showing diffuse liver disease and splenomegaly with spleen size of 19 cm. Hematology consultation on August 23, 2014 revealed anemia with a hemoglobin of 9.4 g/dL, white count of 2.3, platelets of 103,000. Iron studies showed a ferritin of 8 with iron saturation of 20%. LDH normal. LFTs normal. Vitamin B12 and folate levels normal. Beta-2 microglobulin slightly elevated at 3.05. Serum protein electrophoresis revealed monoclonal protein, which was too small to quantitate. Immunoglobulin levels were normal. Rheumatoid factor less than 15 in the past. Repeat ultrasound of abdomen performed September 11, 2014 showed hepatosplenomegaly similar to previous exam. Dilated portal vein suggestive of portal hypertension. Thickened, edematous gallbladder similar to March 2014 exam. The patient was admitted again in May 2015 with symptoms of painful hematuria. He developed significant anemia with a hemoglobin dropping to 7.7 g/dL for which he received 2 to 3 units of blood transfusion. Interval History Interval history: Patient is here in follow-up. He is doing okay, has no complaints today. He has been receiving IV iron once a week. He denies any GI bleeding. He denies nausea, abdominal discomfort, hematochezia melena. No exertional chest pain or shortness of breath. Review of Systems - Constitutional Reports as per HPI, Reports no additional constitutional complaints - Cardiovascular Reports no additional cardiovascular complaints - Respiratory Reports no additional respiratory complaints [facility] Medical History: Medical History (Last Reviewed 08/27/21 @ 13:31 by Pippa Reynolds) Aortic stenosis CAD (coronary artery disease) Chronic fatigue COVID-19 vaccine series completed Diabetes type 2, uncontrolled Diabetic nephropathy associated with type 2 diabetes mellitus Diabetic 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 associated with type 2 diabetes mellitus DMII (diabetes mellitus, type 2) KOEHLER (dyspnea on exertion) Dyslipidemia Esophageal varices without bleeding GERD (gastroesophageal reflux disease) HTN (hypertension) Hypertension IBS (irritable colon syndrome) Iron deficiency anemia snf (current) use of insulin On beta kayy at home ANUJA on CPAP Polyneuropathy Prostate cancer Spinal stenosis Varices of esophagus determined by endoscopy Family History: Family History (Last Reviewed 08/27/21 @ 13:31 by Pippa Reynolds) Father CVD (cardiovascular disease) Past heart attack Mother CVD (cardiovascular disease) Brain cancer Heart problem Daughter Breast cancer Sister Breast cancer Son Alive and well Family/Other Myocardial infarction Liver cancer Surgical History: Surgical History (Last Reviewed 08/27/21 @ 13:31 by Pippa Reynolds) H/O cataract extraction History of colonoscopy History of heart artery stent History of surgery History of surgery History of transurethral resection of prostate Hx of colonoscopy Hx of endoscopy Hx of esophagogastroduodenoscopy Social History: Social History (Last Reviewed 08/27/21 @ 13:31 by Pippa Reynolds) Living Situation History: Household Members: Spouse Housing: House Are you a primary family day care provider to a significant other at home: No Do you presently have visiting nurse or other home services: No Alcohol History: Alcohol intake: never Alcohol History Details: Alcohol intake frequency: does not drink Tobacco History: Patient Tobacco Use Status: Never used Tobacco e-Cigarette/Vaping Use: Never Used Second Hand Smoke Exposure: No Occupation Assessmet: service: No Current occupational status: retired Oncology Screenings - ECOG Performance Status ECOG Performance Status: 1 Home Medications and Allergies Home Medications Medication Instructions Recorded Confirmed Type metoprolol tartrate 50 mg tablet 75 mg PO BID 07/16/20 08/27/21 History torsemide 20 mg tablet 20 mg PO DAILY 07/16/20 08/27/21 History aspirin 81 mg tablet,delayed 81 mg PO DAILY 08/14/20 08/27/21 History release cyanocobalamin (vitamin B-12) 1,000 mcg PO DAILY 08/14/20 08/27/21 History 1,000 mcg lozenges ferrous sulfate 325 mg (65 mg 325 mg PO BID 10/17/20 08/27/21 History iron) tablet folic acid 1 mg tablet 1 mg PO DAILY 10/17/20 08/27/21 History Allergies Allergy/AdvReac Type Severity Reaction Status Date / Time lisinopril [From ZESTRIL] Allergy Severe UNABLE TO Verified 08/27/21 13:31 BREATH dextran 40 [DEXTRAN 40] Allergy Intermediate tachycardia Verified 08/27/21 13:31 latex [LATEX] Allergy Mild BLISTERS Verified 08/27/21 13:31 cyclobenzaprine Allergy Unknown Unknown Verified 08/27/21 13:31 [From Flexeril] egg Allergy Unknown unknown Verified 08/27/21 13:31 Iodinated Contrast Media Allergy Unknown UNKNOWN Verified 08/27/21 13:31 [CONTRAST,IV] tizanidine [From Zanaflex] Allergy Unknown Hallucinati Verified 08/27/21 13:31 ons pregabalin AdvReac Unknown hallucinati Verified 08/27/21 13:31 ons Exam Vital signs: Vital Signs Temp 97.5 F 08/27/21 13:30 Pulse 68 08/27/21 13:30 Resp 16 08/27/21 13:30 BP 182/78 H 08/27/21 13:30 Pulse Ox 96 08/27/21 13:30 Intake & Output 08/26/21 08/27/21 08/27/21 18:59 06:59 18:59 Other: Weight 94.5 kg [place] Weight in Grams 10463 Weight 94.5 kg BMI result Body Mass Index 30.7 - Constitutional Present: no acute distress - Routine HEENT Exam Head: Present: normal inspection - Routine Neck Exam Absent: lymphadenopathy - Routine Respiratory Exam Present: CTAB - Routine Cardiovascular Exam Cardiovascular: Present: S1, S2 Data - Labs CBC & Chem 7: 08/27/21 13:38 Assessment and Plan Patient Active problem list reviewed?: Yes (1) Anemia Status: Chronic Assessment and plan: 1. A 76-year-old male with iron deficiency anemia. He had rectal bleeding secondary to radiation proctitis and cystitis. He is on ferrous sulfate twice a day. Negative for celiac antibodies. He had an allergic reaction to iron dextran. Developed upper GI bleeding related to esophageal varices. He has undergone banding. He has been on IV Ferrlecit intermittently. He also received blood transfusion. 2. Pancytopenia, leukopenia and thrombocytopenia, which has been chronic and stable. He has evidence of hepatosplenomegaly, portal hypertension, which is probably contributing to his cytopenias. MRI abdomen in December 2019 showed chronic cirrhosis, portal venous hypertension and splenomegaly. No evidence of HCC or other liver lesions. He had a liver ultrasound February 2021. 3. Vitamin B12 deficiency, pernicious anemia. He is positive for intrinsic factor antibodies. He is on oral B12 supplementation and adequate blood levels. He is currently receiving IV Ferrlecit 125 mg weekly. His last dose is end of August. He continues to have mild iron deficiency anemia. Follow-up in 3 months. - Time Spent With Patient Time Spent with Patient (in minutes): 15
--- NOTE | 2021-08-29 15:10 | MHC.HEMONC ---
Pt walked into unit today, asked to speak to a nurse about his recent lab results he was given, said he was here for his weekly IV ferrlicit infusion, that he has one left next week. He said, I don't know what any of these numbers mean. Nurse reviewed Dr. Nielsen's note from 2 days prior when pt had his f/u visit, reported to pt that Dr. Nielsen is not here, but her note indicated that she feels the pt's labs are stable, relative to his baseline, and that he need not return until his next f/u visit, unless he develops any new symptoms, and then he should please call.
--- NOTE | 2021-11-26 13:13 | P.PNHO_ITS ---
Medical Summary - Medical Summary Date of Service: 11/26/21 Chief complaint: follow-up Medical Summary: Diagnosis: Iron deficiency anemia Mr. Lopes has an extensive medical history, with the frequent hospitalizations in the last 2 years. He has a long-standing history of type 2 diabetes mellitus, coronary artery disease. In August 2012, he was diagnosed with prostate cancer, underwent laser surgery, followed by radiation therapy, which he completed in April 2014. He is currently on Trelstar (LHRH agonist therapy) every 6 months under the care of Dr. Dudley. He was admitted in June for rectal bleeding and anemia. This was diagnosed as radiation proctitis. He has a history of blood transfusion in 2012 when he was admitted for Staphylococcus aureus sepsis and anemia. He was told of leukopenia for many years and reviewing [employer], his white count has ranged from 3 to 4 thousand dating back to 2003 with normal counts in 2005. Since 2006 or 2007, it has declined and more recently since 2012, it has stayed under 5000 consistently. He has developed thrombocytopenia since 2012. Prior to that, platelet counts have been normal. His hemoglobin has always been low; back in 2013 it was in the 13 g/dL range but since 2005 it has gone up and down ranging between been 10 to 11 g/dL and in 2013 it has been below 10 g/dL. He does have a history of excess alcohol consumption for many years and he quit in 2013. Ultrasound of the abdomen in March 2014 revealed enlarged liver, showing diffuse liver disease and splenomegaly with spleen size of 19 cm. Hematology consultation on August 23, 2014 revealed anemia with a hemoglobin of 9.4 g/dL, white count of 2.3, platelets of 103,000. Iron studies showed a ferritin of 8 with iron saturation of 20%. LDH normal. LFTs normal. Vitamin B12 and folate levels normal. Beta-2 microglobulin slightly elevated at 3.05. Serum protein electrophoresis revealed monoclonal protein, which was too small to quantitate. Immunoglobulin levels were normal. Rheumatoid factor less than 15 in the past. Repeat ultrasound of abdomen performed September 11, 2014 showed hepatosplenomegaly similar to previous exam. Dilated portal vein suggestive of portal hypertension. Thickened, edematous gallbladder similar to March 2014 exam. The patient was admitted again in May 2015 with symptoms of painful hematuria. He developed significant anemia with a hemoglobin dropping to 7.7 g/dL for which he received 2 to 3 units of blood transfusion. Interval History Interval history: Patient is here in follow-up. He is doing okay, has no complaints today. His last treatment of IV iron was in October. He may require aortic valve replacement, he is going to see cardiothoracic surgeon at [facility] regarding this. He denies any GI bleeding. He denies nausea, abdominal discomfort, hematochezia melena. Review of Systems - Constitutional Reports as per HPI, Reports no additional constitutional complaints - Cardiovascular Reports no additional cardiovascular complaints - Respiratory Reports no additional respiratory complaints [facility] Medical History: Medical History (Last Reviewed 11/08/21 @ 14:12 by MACIE Ibarra) Aortic stenosis CAD (coronary artery disease) Chronic fatigue COVID-19 vaccine series completed Diabetes type 2, uncontrolled Diabetic nephropathy associated with type 2 diabetes mellitus Diabetic 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 associated with type 2 diabetes mellitus DMII (diabetes mellitus, type 2) KOEHLER (dyspnea on exertion) Dyslipidemia Esophageal varices without bleeding GERD (gastroesophageal reflux disease) HTN (hypertension) Hypertension IBS (irritable colon syndrome) Iron deficiency anemia [facility] (current) use of insulin On beta kayy at home ANUJA on CPAP Polyneuropathy Prostate cancer Spinal stenosis Varices of esophagus determined by endoscopy Family History: Family History (Last Reviewed 11/23/21 @ 09:06 by Roberto Carlos Cisneros PA-C) Father CVD (cardiovascular disease) Past heart attack Mother CVD (cardiovascular disease) Brain cancer Heart problem Daughter Breast cancer Sister Breast cancer Son Alive and well Family/Other Myocardial infarction Liver cancer Surgical History: Surgical History (Last Reviewed 11/23/21 @ 09:06 by Roberto Carlos Cisneros PA-C) H/O cataract extraction History of colonoscopy History of heart artery stent History of surgery History of surgery History of transurethral resection of prostate Hx of colonoscopy Hx of endoscopy Hx of esophagogastroduodenoscopy Social History: Social History (Last Reviewed 11/23/21 @ 09:06 by Roberto Carlos Cisneros PA-C) Living Situation History: Household Members: Spouse Housing: House Are you a primary customer care consultant to a significant other at home: No Do you presently have visiting nurse or other home services: No Tobacco History: Patient Tobacco Use Status: Never used Tobacco e-Cigarette/Vaping Use: Never Used Second Hand Smoke Exposure: No Occupation Assessmet: service: No Current occupational status: retired Home Medications and Allergies Home Medications Medication Instructions Recorded Confirmed Type metoprolol tartrate 50 mg tablet 75 mg PO BID 07/16/20 11/26/21 History torsemide 20 mg tablet 20 mg PO DAILY 07/16/20 11/26/21 History aspirin 81 mg tablet,delayed 81 mg PO DAILY 08/14/20 11/26/21 History release cyanocobalamin (vitamin B-12) 1,000 mcg PO DAILY 08/14/20 11/26/21 History 1,000 mcg lozenges ferrous sulfate 325 mg (65 mg 325 mg PO BID 10/17/20 11/26/21 History iron) tablet folic acid 1 mg tablet 1 mg PO DAILY 10/17/20 11/26/21 History insulin degludec 200 unit/mL (3 65 unit SUBCUT DAILY ml 11/08/21 11/26/21 History mL) subcutaneous pen (Tresiba FlexTouch U-200 insulin) Allergies Allergy/AdvReac Type Severity Reaction Status Date / Time lisinopril [From ZESTRIL] Allergy Severe UNABLE TO Verified 11/26/21 13:33 BREATH dextran 40 [DEXTRAN 40] Allergy Intermediate tachycardia Verified 11/26/21 13:33 latex [LATEX] Allergy Mild BLISTERS Verified 11/26/21 13:33 cyclobenzaprine Allergy Unknown Unknown Verified 11/26/21 13:33 [From Flexeril] egg Allergy Unknown unknown Verified 11/26/21 13:33 Iodinated Contrast Media Allergy Unknown UNKNOWN Verified 11/26/21 13:33 [CONTRAST,IV] tizanidine [From Zanaflex] Allergy Unknown Hallucinati Verified 11/26/21 13:33 ons pregabalin AdvReac Unknown hallucinati Verified 11/26/21 13:33 ons Exam Vital signs: Vital Signs Temp 97.5 F 08/27/21 13:30 Pulse 68 08/27/21 13:30 Resp 16 08/27/21 13:30 BP 182/78 H 08/27/21 13:30 Pulse Ox 96 08/27/21 13:30 Weight 94.5 kg BMI result Body Mass Index 30.7 - Constitutional Present: no acute distress - Routine HEENT Exam Head: Present: normal inspection - Routine Neck Exam Absent: lymphadenopathy - Routine Respiratory Exam Present: CTAB - Routine Cardiovascular Exam Cardiovascular: Present: S1, S2 Data - Labs CBC & Chem 7: 12/14/21 13:38 Assessment and Plan Patient Active problem list reviewed?: Yes (1) Anemia Status: Chronic Assessment and plan: 1. A 76-year-old male with iron deficiency anemia. He had rectal bleeding secondary to radiation proctitis and cystitis. He is on ferrous sulfate twice a day. Negative for celiac antibodies. He had an allergic reaction to iron dextran. Developed upper GI bleeding related to esophageal varices. He has undergone banding. He has been on IV Ferrlecit intermittently. He also received blood transfusion. 2. Pancytopenia, leukopenia and thrombocytopenia, which has been chronic and stable. He has evidence of hepatosplenomegaly, portal hypertension, which is probably contributing to his cytopenias. MRI abdomen in December 2019 showed chronic cirrhosis, portal venous hypertension and splenomegaly. No evidence of HCC or other liver lesions. 3. Vitamin B12 deficiency, pernicious anemia. He is positive for intrinsic factor antibodies. He is on oral B12 supplementation and adequate blood levels. He is now on oral iron supplementation. He received Ferrlecit until October 2021. His blood counts are stable. Follow-up in 3 months. - Time Spent With Patient Time Spent with Patient (in minutes): 15
[2021-11-26 13:24] VITALS: BP 137/65; PULSE 96; RESP 18; TEMP 36.5; O2SAT 96
[2021-11-26 13:26] VITALS: BMI 32.6
--- NOTE | 2021-11-26 13:44 | MHC.HEMONC ---
Pt here for Hem follow up with Dr Nielsen. Labs drawn last week reviewed by provider. Clinical summary updated by nurse. Pt states he has fatigue and dyspneic on exertion. States he is seeing Cardiac provider next week for possible valve replacement. Dr Nielsen into see pt. Discharge packet given. Follow up appointment scheduled
[2022-02-26 14:27] VITALS: BP 146/65; PULSE 68; RESP 14; TEMP 36.6; O2SAT 96; BMI 32.3
[2022-02-26 15:12] LABS: MANUAL DIFF FLAG NO
[2022-02-26 15:18] LABS: Basophils Percent Auto 0.9 % (0-2); Eosinophils Absolute Auto 0.1 X10*3/uL (0.0-0.4); Eosinophils Percent Auto 2.6 % (0-4); Hematocrit 28.6 % (42.0-52.0); Hemoglobin 8.6 g/dl (14.0-18.0); Imm Gran Abs Auto 0.01 X10*3/uL (0.00-0.03); Imm Gran Pct Auto 0.2 % (0.0-0.4); Lymphocytes Absolute Auto 0.5 X10*3/uL (1.2-4.9); Mean Corpuscular HGB Conc 30.1 g/dl (31.0-36.0); Mean Corpuscular Volume 86.4 fL (80.0-98.0); Mean Platelet Volume 11.3 fL (9.4-12.4); Monocytes Absolute Auto 0.6 X10*3/uL (0.1-1.2); Monocytes Percent Auto 12.9 % (2-11); Neutrophils Absolute Auto 3.3 x10*3/uL (2.0-8.3); Neutrophils Percent Auto 72.4 % (45-73); Platelet Count 101 X10*3/uL (160-400); Red Blood Count 3.31 X10*6/uL (4.60-5.80); White Blood Count 4.6 X10*3/uL (4.8-10.8)
[2022-02-26 15:46] LABS: Iron 35 mcg/dL (45-160); Percent Iron Saturation 7 % (15-50); Total Iron Binding Capacity 481 mcg/dL (228-428); Unsaturated Iron Binding 446 ug/dL
--- NOTE | 2022-02-26 16:39 | MHC.HEMONCMA ---
Pt was in for follow up. Clinical summary reviewed and updated, VSS. Labs were drawn. Pt to return in 3 months.
--- NOTE | 2022-02-26 16:57 | PM.HEMONCPN ---
Medical Summary - Medical Summary Date of Service: 02/26/22 Chief complaint: follow-up Medical Summary: Diagnosis: Iron deficiency anemia Mr. Lopes has an extensive medical history, with the frequent hospitalizations in the last 2 years. He has a long-standing history of type 2 diabetes mellitus, coronary artery disease. In August 2012, he was diagnosed with prostate cancer, underwent laser surgery, followed by radiation therapy, which he completed in April 2014. He is currently on Trelstar (LHRH agonist therapy) every 6 months under the care of Dr. Dudley. He was admitted in June for rectal bleeding and anemia. This was diagnosed as radiation proctitis. He has a history of blood transfusion in 2012 when he was admitted for Staphylococcus aureus sepsis and anemia. He was told of leukopenia for many years and reviewing [employer], his white count has ranged from 3 to 4 thousand dating back to 2003 with normal counts in 2005. Since 2006 or 2007, it has declined and more recently since 2012, it has stayed under 5000 consistently. He has developed thrombocytopenia since 2012. Prior to that, platelet counts have been normal. His hemoglobin has always been low; back in 2013 it was in the 13 g/dL range but since 2005 it has gone up and down ranging between been 10 to 11 g/dL and in 2013 it has been below 10 g/dL. He does have a history of excess alcohol consumption for many years and he quit in 2013. Ultrasound of the abdomen in March 2014 revealed enlarged liver, showing diffuse liver disease and splenomegaly with spleen size of 19 cm. Hematology consultation on August 23, 2014 revealed anemia with a hemoglobin of 9.4 g/dL, white count of 2.3, platelets of 103,000. Iron studies showed a ferritin of 8 with iron saturation of 20%. LDH normal. LFTs normal. Vitamin B12 and folate levels normal. Beta-2 microglobulin slightly elevated at 3.05. Serum protein electrophoresis revealed monoclonal protein, which was too small to quantitate. Immunoglobulin levels were normal. Rheumatoid factor less than 15 in the past. Repeat ultrasound of abdomen performed September 11, 2014 showed hepatosplenomegaly similar to previous exam. Dilated portal vein suggestive of portal hypertension. Thickened, edematous gallbladder similar to March 2014 exam. The patient was admitted again in May 2015 with symptoms of painful hematuria. He developed significant anemia with a hemoglobin dropping to 7.7 g/dL for which he received 2 to 3 units of blood transfusion. Interval History Interval history: Patient is here in follow-up. He is doing okay, has no complaints today. His last treatment of IV iron was in October. He was admitted at [facility] for a few days after cardiac procedure. He denies any GI bleeding. He denies nausea, abdominal discomfort, hematochezia melena. Review of Systems - Constitutional Reports as per HPI, Reports no additional constitutional complaints - Cardiovascular Reports no additional cardiovascular complaints - Respiratory Reports no additional respiratory complaints [facility] Medical History: Medical History (Last Reviewed 02/26/22 @ 14:31 by Janay Salgado [facility]) Aortic stenosis Chronic fatigue COVID-19 vaccine series completed DMII (diabetes mellitus, type 2) KOEHLER (dyspnea on exertion) Esophageal varices without bleeding HTN (hypertension) Iron deficiency anemia On beta kayy at home ANUJA on CPAP Polyneuropathy Prostate cancer Spinal stenosis Varices of esophagus determined by endoscopy Family History: Family History (Last Reviewed 02/26/22 @ 15:38 by JENNI Hudson) Father CVD (cardiovascular disease) Past heart attack Mother CVD (cardiovascular disease) Brain cancer Heart problem Daughter Breast cancer Sister Breast cancer Son Alive and well Family/Other Myocardial infarction Liver cancer Surgical History: Surgical History (Last Reviewed 02/26/22 @ 15:38 by JENNI Hudson) H/O cataract extraction History of colonoscopy History of heart artery stent History of surgery History of surgery History of transurethral resection of prostate Hx of colonoscopy Hx of endoscopy Hx of esophagogastroduodenoscopy Social History: Social History (Last Reviewed 02/26/22 @ 15:38 by JENNI Hudson) Living Situation History: Household Members: Spouse Housing: House Are you a primary cardiac care unit nurse to a significant other at home: No Do you presently have visiting nurse or other home services: No Tobacco History: Patient Tobacco Use Status: Never used Tobacco e-Cigarette/Vaping Use: Never Used Second Hand Smoke Exposure: No Occupation Assessmet: service: No Current occupational status: retired Oncology Screenings - ECOG Performance Status ECOG Performance Status: 1 Home Medications and Allergies Home Medications Medication Instructions Recorded Confirmed Type torsemide 20 mg tablet 20 mg PO DAILY 07/16/20 02/26/22 History aspirin 81 mg tablet,delayed 81 mg PO DAILY 08/14/20 02/26/22 History release cyanocobalamin (vitamin B-12) 1,000 mcg PO DAILY 08/14/20 02/26/22 History 1,000 mcg lozenges ferrous sulfate 325 mg (65 mg 325 mg PO BID 10/17/20 02/26/22 History iron) tablet folic acid 1 mg tablet 1 mg PO DAILY 10/17/20 02/26/22 History metoprolol tartrate 100 mg tablet 100 mg PO DAILY 01/30/22 02/26/22 History ezetimibe 10 mg tablet (Zetia) 10 mg PO DAILY 02/26/22 02/26/22 History Allergies Allergy/AdvReac Type Severity Reaction Status Date / Time lisinopril [From ZESTRIL] Allergy Severe UNABLE TO Verified 02/26/22 16:30 BREATH dextran 40 [DEXTRAN 40] Allergy Intermediate tachycardia Verified 02/26/22 16:30 latex [LATEX] Allergy Mild BLISTERS Verified 02/26/22 16:30 cyclobenzaprine Allergy Unknown Unknown Verified 02/26/22 16:30 [From Flexeril] egg Allergy Unknown unknown Verified 02/26/22 16:30 Iodinated Contrast Media Allergy Unknown UNKNOWN Verified 02/26/22 16:30 [CONTRAST,IV] tizanidine [From Zanaflex] Allergy Unknown Hallucinati Verified 02/26/22 16:30 ons pregabalin AdvReac Unknown hallucinati Verified 02/26/22 16:30 ons Exam Vital signs: Vital Signs Temp 98 F 02/26/22 14:27 Pulse 68 02/26/22 14:27 Resp 14 02/26/22 14:27 BP 146/65 H 02/26/22 14:27 Pulse Ox 96 02/26/22 14:27 O2 Del Method 02/26/22 14:27 Intake & Output 02/25/22 02/26/22 02/26/22 18:59 06:59 18:59 Other: Weight 99.3 kg [place] Weight in Grams [id number] Weight 99.3 kg BMI result Body Mass Index 32.3 - Constitutional Present: no acute distress - Routine HEENT Exam Head: Present: normal inspection - Routine Neck Exam Absent: lymphadenopathy - Routine Respiratory Exam Present: CTAB - Routine Cardiovascular Exam Cardiovascular: Present: S1, S2 Data - Labs CBC & Chem 7: 02/26/22 15:11 Assessment and Plan Patient Active problem list reviewed?: Yes (1) Anemia Status: Chronic Assessment and plan: 1. A 76-year-old male with iron deficiency anemia. He had rectal bleeding secondary to radiation proctitis and cystitis. He is on ferrous sulfate twice a day. Negative for celiac antibodies. He had an allergic reaction to iron dextran. Developed upper GI bleeding related to esophageal varices. He has undergone banding. He has been on IV Ferrlecit intermittently. He also received blood transfusion. 2. Pancytopenia, leukopenia and thrombocytopenia, which has been chronic and stable. He has evidence of hepatosplenomegaly, portal hypertension, which is probably contributing to his cytopenias. MRI abdomen in December 2019 showed chronic cirrhosis, portal venous hypertension and splenomegaly. No evidence of HCC or other liver lesions. 3. Vitamin B12 deficiency, pernicious anemia. He is positive for intrinsic factor antibodies. He is on oral B12 supplementation and adequate blood levels. He is now on oral iron supplementation. He received Ferrlecit until October 2021. His blood counts showed recurrent iron deficiency anemia. He will be scheduled for Ferrlecit at this time. Follow-up in 3 months. - Time Spent With Patient Time Spent with Patient (in minutes): 15
--- NOTE | 2022-05-15 10:12 | HO.HEMONCPA ---
NO PA IS REQUIRED FOR [facility] ([id number]) ( PATIENT HAS MEDICARE )
--- NOTE | 2022-05-20 11:56 | MHC.HEMONCMA ---
Faxed over to [facility]ofar orders with auth info, per Vernell [phone] will call patient to book
--- NOTE | 2022-05-21 10:29 | HO.HEMONCSCH ---
[facility],pt is aware.
[2022-05-30 13:28] VITALS: BP 158/70; PULSE 68; RESP 14; TEMP 36.5; O2SAT 96; BMI 31.5
--- NOTE | 2022-05-30 13:32 | P.PNHO-ONC_ITS ---
Medical Summary - Medical Summary Date of Service: 05/30/22 Medical Summary: Diagnosis: Iron deficiency anemia Mr. Lopes has an extensive medical history, with the frequent hospitalizations in the last 2 years. He has a long-standing history of type 2 diabetes mellitus, coronary artery disease. In August 2012, he was diagnosed with prostate cancer, underwent laser surgery, followed by radiation therapy, which he completed in April 2014. He is currently on Trelstar (LHRH agonist therapy) every 6 months under the care of Dr. Dudley. He was admitted in June for rectal bleeding and anemia. This was diagnosed as radiation proctitis. He has a history of blood transfusion in 2012 when he was admitted for Staphylococcus aureus sepsis and anemia. He was told of leukopenia for many years and reviewing [place], his white count has ranged from 3 to 4 thousand dating back to 2003 with normal counts in 2005. Since 2006 or 2007, it has declined and more recently since 2012, it has stayed under 5000 consistently. He has developed thrombocytopenia since 2012. Prior to that, platelet counts have been normal. His hemoglobin has always been low; back in 2013 it was in the 13 g/dL range but since 2005 it has gone up and down ranging between been 10 to 11 g/dL and in 2013 it has been below 10 g/dL. He does have a history of excess alcohol consumption for many years and he quit in 2013. Ultrasound of the abdomen in March 2014 revealed enlarged liver, showing diffuse liver disease and splenomegaly with spleen size of 19 cm. Hematology consultation on August 23, 2014 revealed anemia with a hemoglobin of 9.4 g/dL, white count of 2.3, platelets of 103,000. Iron studies showed a ferritin of 8 with iron saturation of 20%. LDH normal. LFTs normal. Vitamin B12 and folate levels normal. Beta-2 microglobulin slightly elevated at 3.05. Serum protein electrophoresis revealed monoclonal protein, which was too small to quantitate. Immunoglobulin levels were normal. Rheumatoid factor less than 15 in the past. Repeat ultrasound of abdomen performed September 11, 2014 showed hepat osplenomegaly similar to previous exam. Dilated portal vein suggestive of portal hypertension. Thickened, edematous gallbladder similar to March 2014 exam. The patient was admitted again in May 2015 with symptoms of painful hematuria. He developed significant anemia with a hemoglobin dropping to 7.7 g/dL for which he received 2 to 3 units of blood transfusion. Interval History Interval history: Patient is here in follow-up. He denies any GI bleeding. He denies nausea, abdominal discomfort, hematochezia or melena. He is scheduled to undergo heart surgery, valve replacement at [facility] next week. He received Venofer infusion last week. Review of Systems - Constitutional Reports as per HPI, Reports no additional constitutional complaints - Cardiovascular Reports no additional cardiovascular complaints - Respiratory Reports no additional respiratory complaints - Gastrointestinal Reports no additional gastrointestinal complaints [facility] Medical History: Medical History (Last Reviewed 05/30/22 @ 13:30 by Rocio Viramontes) Aortic stenosis CAD (coronary artery disease) Chronic fatigue COVID-19 vaccine series completed Diabetes type 2, uncontrolled Diabetic nephropathy associated with type 2 diabetes mellitus Diabetic 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 associated with type 2 diabetes mellitus DMII (diabetes mellitus, type 2) KOEHLER (dyspnea on exertion) Dyslipidemia Esophageal varices without bleeding GERD (gastroesophageal reflux disease) HTN (hypertension) Hypertension IBS (irritable colon syndrome) Iron deficiency anemia FDC (current) use of insulin On beta kayy at home ANUJA on CPAP Polyneuropathy Prostate cancer Spinal stenosis Varices of esophagus determined by endoscopy Family History: Family History (Last Reviewed 05/30/22 @ 13:30 by Rocio Viramontes) Father CVD (cardiovascular disease) Past heart attack Mother CVD (cardiovascular disease) Brain cancer Heart problem Daughter Breast cancer Sister Breast cancer Son Alive and well Family/Other Myocardial infarction Liver cancer Surgical History: Surgical History (Last Reviewed 05/30/22 @ 13:30 by Rocio Viramontes) H/O cataract extraction History of colonoscopy History of heart artery stent History of surgery History of surgery History of transurethral resection of prostate Hx of colonoscopy Hx of endoscopy Hx of esophagogastroduodenoscopy Social History: Social History (Last Reviewed 05/30/22 @ 13:31 by Rocio Viramontes) Living Situation History: Household Members: Spouse Housing: House Are you a primary manager wound care to a significant other at home: No Do you presently have visiting nurse or other home services: No Alcohol History Details: 1. How often do you have a drink containing alcohol?: a. Never Tobacco History: Patient Tobacco Use Status: Never used Tobacco e-Cigarette/Vaping Use: Never Used Second Hand Smoke Exposure: No Substance Use History: Use of substances other than those prescribed or required for medical reasons : No Domestic Abuse History: Have you been hit, kicked, punched, or otherwise hurt by someone within the past year? If so, by whom?: No Do you feel safe in your current relationship?: Yes Homicidal Assessment: Do you have thoughts of harming others: None Do you have a plan to hurt others: No Plan Do you have the means to hurt others: No Nutrition Assessment: Recently lost weight without trying: No Occupation Assessmet: service: No Current occupational status: retired Oncology Screenings - ECOG Performance Status ECOG Performance Status: 1 Home Medications and Allergies Home Medications Medication Instructions Recorded Confirmed Type torsemide 20 mg tablet 20 mg PO DAILY 07/16/20 05/30/22 History aspirin 81 mg tablet,delayed 81 mg PO DAILY 08/14/20 05/30/22 History release cyanocobalamin (vitamin B-12) 1,000 mcg PO DAILY 08/14/20 05/30/22 History 1,000 mcg lozenges ferrous sulfate 325 mg (65 mg 325 mg PO BID 10/17/20 05/30/22 History iron) tablet folic acid 1 mg tablet 1 mg PO DAILY 10/17/20 05/30/22 History metoprolol tartrate 100 mg tablet 100 mg PO DAILY 01/30/22 05/30/22 History ezetimibe 10 mg tablet (Zetia) 10 mg PO DAILY 02/26/22 05/30/22 History Allergies Allergy/AdvReac Type Severity Reaction Status Date / Time lisinopril [From ZESTRIL] Allergy Severe UNABLE TO Verified 02/26/22 16:30 BREATH dextran 40 [DEXTRAN 40] Allergy Intermediate tachycardia Verified 02/26/22 16:30 latex [LATEX] Allergy Mild BLISTERS Verified 02/26/22 16:30 cyclobenzaprine Allergy Unknown Unknown Verified 02/26/22 16:30 [From Flexeril] egg Allergy Unknown unknown Verified 02/26/22 16:30 Iodinated Contrast Media Allergy Unknown UNKNOWN Verified 02/26/22 16:30 [CONTRAST,IV] tizanidine [From Zanaflex] Allergy Unknown Hallucinati Verified 02/26/22 16:30 ons pregabalin AdvReac Unknown hallucinati Verified 02/26/22 16:30 ons Exam Vital signs: Vital Signs Temp 97.7 F 05/30/22 13:28 Pulse 68 05/30/22 13:28 Resp 14 05/30/22 13:28 BP 158/70 H 05/30/22 13:28 Pulse Ox 96 05/30/22 13:28 O2 Del Method 05/30/22 13:28 Intake & Output 05/29/22 05/30/22 05/30/22 18:59 06:59 18:59 Other: Weight 96.8 kg [place] Weight in Grams [id number] Weight 96.8 kg BMI result Body Mass Index 31.5 - Constitutional Present: no acute distress - Routine HEENT Exam Head: Present: normal inspection - Routine Neck Exam Absent: lymphadenopathy - Routine Respiratory Exam Present: CTAB - Routine Cardiovascular Exam Cardiovascular: Present: S1, S2 Data - Labs CBC & Chem 7: 02/26/22 15:11 Labs: Laboratory Tests 03/22/22 09:59 WBC 4.9 RBC 3.56 L Hgb 9.2 L Hct 30.8 L Plt Count 96 L Assessment and Plan Patient Active problem list reviewed?: Yes (1) Anemia Status: Chronic Assessment and plan: 1. A 77-year-old male with iron deficiency anemia. He had rectal bleeding secondary to radiation proctitis and cystitis. He is on ferrous sulfate twice a day. Negative for celiac antibodies. He had an allergic reaction to iron dextran. Developed upper GI bleeding related to esophageal varices. He has undergone banding. He has been on IV Ferrlecit intermittently. He also received blood transfusion. 2. Pancytopenia, leukopenia and thrombocytopenia, which has been chronic and stable. He has evidence of hepatosplenomegaly, portal hypertension, which is probably contributing to his cytopenias. MRI abdomen in December 2019 showed chronic cirrhosis, portal venous hypertension and splenomegaly. No evidence of HCC or other liver lesions. 3. Vitamin B12 deficiency, pernicious anemia. He is positive for intrinsic factor antibodies. He is on oral B12 supplementation and adequate blood levels. He received when a for a week ago. He is scheduled to undergo valve replacement surgery at [facility] next week. He will follow-up after this. Follow-up in 3 months. - Time Spent With Patient Time Spent with Patient (in minutes): 10
--- NOTE | 2022-05-30 14:02 | MHC.HEMONCMA ---
follow up today for prostate CA/Anemia, VSS, followup in 3 months.
--- NOTE | 2022-08-29 13:58 | PM.HEMONCPN ---
Medical Summary - Medical Summary Date of Service: 08/29/22 Chief complaint: follow-up Medical Summary: Diagnosis: Iron deficiency anemia Mr. Lopes has an extensive medical history, with the frequent hospitalizations in the last 2 years. He has a long-standing history of type 2 diabetes mellitus, coronary artery disease. In August 2012, he was diagnosed with prostate cancer, underwent laser surgery, followed by radiation therapy, which he completed in April 2014. He is currently on Trelstar (LHRH agonist therapy) every 6 months under the care of Dr. Dudley. He was admitted in June for rectal bleeding and anemia. This was diagnosed as radiation proctitis. He has a history of blood transfusion in 2012 when he was admitted for Staphylococcus aureus sepsis and anemia. He was told of leukopenia for many years and reviewing Tiqets, his white count has ranged from 3 to 4 thousand dating back to 2003 with normal counts in 2005. Since 2006 or 2007, it has declined and more recently since 2012, it has stayed under 5000 consistently. He has developed thrombocytopenia since 2012. Prior to that, platelet counts have been normal. His hemoglobin has always been low; back in 2013 it was in the 13 g/dL range but since 2005 it has gone up and down ranging between been 10 to 11 g/dL and in 2013 it has been below 10 g/dL. He does have a history of excess alcohol consumption for many years and he quit in 2013. Ultrasound of the abdomen in March 2014 revealed enlarged liver, showing diffuse liver disease and splenomegaly with spleen size of 19 cm. Hematology consultation on August 23, 2014 revealed anemia with a hemoglobin of 9.4 g/dL, white count of 2.3, platelets of 103,000. Iron studies showed a ferritin of 8 with iron saturation of 20%. LDH normal. LFTs normal. Vitamin B12 and folate levels normal. Beta-2 microglobulin slightly elevated at 3.05. Serum protein electrophoresis revealed monoclonal protein, which was too small to quantitate. Immunoglobulin levels were normal. Rheumatoid factor less than 15 in the past. Repeat ultrasound of abdomen performed September 11, 2014 showed hepatosplenomegaly similar to previous exam. Dilated portal vein suggestive of portal hypertension. Thickened, edematous gallbladder similar to March 2014 exam. The patient was admitted again in May 2015 with symptoms of painful hematuria. He developed significant anemia with a hemoglobin dropping to 7.7 g/dL for which he received 2 to 3 units of blood transfusion. Interval History Interval history: Patient is here in follow-up. He denies any GI bleeding. He denies nausea, abdominal discomfort, hematochezia or melena. He underwent heart surgery, valve replacement and pacemaker put in at [facility] in June. He required 2 units blood transfusion. He feels well and denies any shortness of breath, dizziness or palpitations. He healed very well from his surgery. Review of Systems - Constitutional Reports as per HPI, Reports no additional constitutional complaints, Denies anorexia, Denies fatigue, Denies malaise, Denies night sweats, Denies poor appetite - Cardiovascular Reports no additional cardiovascular complaints - Respiratory Reports no additional respiratory complaints - Gastrointestinal Reports no additional gastrointestinal complaints [facility] Medical History: Medical History (Last Reviewed 08/29/22 @ 14:14 by Rocio Viramontes) Acute lower gastrointestinal bleeding Aortic stenosis CAD (coronary artery disease) Chronic fatigue COVID-19 vaccine series completed Diabetes type 2, uncontrolled Diabetic nephropathy associated with type 2 diabetes mellitus Diabetic 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 associated with type 2 diabetes mellitus DMII (diabetes mellitus, type 2) KOEHLER (dyspnea on exertion) Dyslipidemia Esophageal varices without bleeding GERD (gastroesophageal reflux disease) History of prostate cancer HTN (hypertension) Hypertension IBS (irritable colon syndrome) Iron deficiency anemia 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 On beta kayy at home ANUJA on CPAP Polyneuropathy Prostate cancer Spinal stenosis Varices of esophagus determined by endoscopy Family History: Family History (Last Reviewed 08/29/22 @ 14:14 by Rocio Viramontes) Father CVD (cardiovascular disease) Past heart attack Mother CVD (cardiovascular disease) Brain cancer Heart problem Daughter Breast cancer Sister Breast cancer Son Alive and well Family/Other Myocardial infarction Liver cancer Surgical History: Surgical History (Last Reviewed 08/29/22 @ 14:14 by Rocio Viramontes) H/O cataract extraction History of colonoscopy History of heart artery stent History of surgery History of surgery History of transurethral resection of prostate Hx of colonoscopy Hx of endoscopy Hx of esophagogastroduodenoscopy Social History: Social History (Last Reviewed 08/29/22 @ 14:14 by Rocio Viramontes) Living Situation History: Household Members: Spouse Housing: House Are you a primary director career services to a significant other at home: No Do you presently have visiting nurse or other home services: No Alcohol History Details: 1. How often do you have a drink containing alcohol?: a. Never Tobacco History: Patient Tobacco Use Status: Never used Tobacco e-Cigarette/Vaping Use: Never Used Second Hand Smoke Exposure: No Substance Use History: Use of substances other than those prescribed or required for medical reasons: No Domestic Abuse History: Have you been hit, kicked, punched, or otherwise hurt by someone within the past year? 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 Current occupational status: retired Oncology Screenings - ECOG Performance Status ECOG Performance Status: 1 Home Medications and Allergies Home Medications Medication Instructions Recorded Confirmed Type ferrous sulfate 325 mg (65 mg 325 mg PO DAILY 10/17/20 08/29/22 History iron) tablet furosemide 20 mg tablet 1 tab PO DAILY 06/17/22 08/29/22 History insulin aspart U-100 100 unit/mL 2 - 25 unit subcut TIDAC 06/17/22 08/29/22 History (3 mL) subcutaneous pen (Novolog Flexpen U-100 Insulin aspart) insulin degludec 200 unit/mL (3 65 unit subcut BEDTIME 06/17/22 08/29/22 History mL) subcutaneous pen (Tresiba FlexTouch U-200 insulin) metoprolol succinate 50 mg 1 tab PO DAILY 06/17/22 08/29/22 History tablet,extended release 24 hr clopidogrel 75 mg tablet 1 tab PO DAILY 06/18/22 08/29/22 History Plavix 08/29/22 08/29/22 History Allergies Allergy/AdvReac Type Severity Reaction Status Date / Time lisinopril [From ZESTRIL] Allergy Severe UNABLE TO Verified 07/03/22 09:37 BREATH dextran 40 [DEXTRAN 40] Allergy Intermediate tachycardia Verified 07/03/22 09:37 latex [LATEX] Allergy Mild BLISTERS Verified 07/03/22 09:37 cyclobenzaprine Allergy Unknown Unknown Verified 07/03/22 09:37 [From Flexeril] egg Allergy Unknown unknown Verified 07/03/22 09:37 Iodinated Contrast Media Allergy Unknown UNKNOWN Verified 07/03/22 09:37 [CONTRAST,IV] tizanidine [From Zanaflex] Allergy Unknown Hallucinati Verified 07/03/22 09:37 ons pregabalin AdvReac Unknown hallucinati Verified 07/03/22 09:37 ons Exam Vital signs: Vital Signs Temp 97.7 F 05/30/22 13:28 Pulse 68 05/30/22 13:28 Resp 14 05/30/22 13:28 BP 158/70 H 05/30/22 13:28 Pulse Ox 96 05/30/22 13:28 O2 Del Method 05/30/22 13:28 Weight 96.8 kg BMI result Body Mass Index 31.5 - Constitutional Present: no acute distress, average body habitus - Routine HEENT Exam Head: Present: normal inspection Eye: Present: normal appearance, PERRL - Routine Neck Exam Absent: lymphadenopathy - Routine Respiratory Exam Present: CTAB - Routine Cardiovascular Exam Cardiovascular: Present: S1, S2 Data - Labs CBC & Chem 7: 08/29/22 14:03 Assessment and Plan Patient Active problem list reviewed?: Yes (1) Anemia Status: Chronic Assessment and plan: 1. A 77-year-old male with iron deficiency anemia. He had rectal bleeding secondary to radiation proctitis and cystitis. He is on ferrous sulfate twice a day. Negative for celiac antibodies. He had an allergic reaction to iron dextran. Developed upper GI bleeding related to esophageal varices. He has undergone banding. He has been on IV Ferrlecit intermittently. He also received blood transfusion. 2. Pancytopenia, leukopenia and thrombocytopenia, which has been chronic and stable. He has evidence of hepatosplenomegaly, portal hypertension, which is probably contributing to his cytopenias. MRI abdomen in December 2019 showed chronic cirrhosis, portal venous hypertension and splenomegaly. No evidence of HCC or other liver lesions. 3. Vitamin B12 deficiency, pernicious anemia. He is positive for intrinsic factor antibodies. He is on oral B12 supplementation and adequate blood levels. CBC is stable. He received blood transfusion at the time of heart surgery in June at [facility]. He is doing well. Follow-up in 3 months. - Time Spent With Patient Time Spent with Patient (in minutes): 15
[2022-08-29 14:08] LABS: MANUAL DIFF FLAG NO
[2022-08-29 14:11] VITALS: BP 141/63; PULSE 66; RESP 14; TEMP 36.5; O2SAT 98; BMI 30.8
[2022-08-29 14:24] LABS: Basophils Absolute Auto 0.1 X10*3/uL (0.0-0.2); Basophils Percent Auto 1.2 % (0-2); Eosinophils Absolute Auto 0.1 X10*3/uL (0.0-0.4); Eosinophils Percent Auto 3.4 % (0-4); Hematocrit 32.7 % (42.0-52.0); Hemoglobin 10.3 g/dl (14.0-18.0); Imm Gran Abs Auto 0.02 X10*3/uL (0.00-0.03); Imm Gran Pct Auto 0.5 % (0.0-0.4); Lymphocytes Absolute Auto 0.5 X10*3/uL (1.2-4.9); Lymphocytes Percent Auto 11.9 % (20-40); Mean Corpuscular HGB Conc 31.5 g/dl (31.0-36.0); Mean Corpuscular Hemoglobin 28.5 pg (27.0-33.0); Mean Corpuscular Volume 90.6 fL (80.0-98.0); Monocytes Absolute Auto 0.4 X10*3/uL (0.1-1.2); Platelet Count 83 X10*3/uL (160-400); Red Blood Count 3.61 X10*6/uL (4.60-5.80); Red Cell Distribution Width 17.1 % (11.0-16.0); White Blood Count 4.1 X10*3/uL (4.8-10.8)
[2022-08-29 14:28] LABS: Iron 111 mcg/dL (45-160); Percent Iron Saturation 36 % (15-50); Total Iron Binding Capacity 307 mcg/dL (228-428); Unsaturated Iron Binding 196 ug/dL
--- NOTE | 2022-08-29 14:41 | MHC.HEMONCMA ---
patient seen today for followup, VSS, labs, 3 month follwoup.
[2022-11-28 13:31] LABS: MANUAL DIFF FLAG NO
[2022-11-28 13:33] VITALS: BP 152/67; PULSE 70; TEMP 36.6; O2SAT 96
--- NOTE | 2022-11-28 13:44 | PM.HEMONCPN ---
Medical Summary - Medical Summary Date of Service: 11/28/22 Chief complaint: Fatigue Primary Care Provider: Roberto Carlos Cisneros PA-C Medical Summary: Diagnosis: Iron deficiency anemia Mr. Lopes has an extensive medical history, with the frequent hospitalizations in the last 2 years. He has a long-standing history of type 2 diabetes mellitus, coronary artery disease. In August 2012, he was diagnosed with prostate cancer, underwent laser surgery, followed by radiation therapy, which he completed in April 2014. He is currently on Trelstar (LHRH agonist therapy) every 6 months under the care of Dr. Dudley. He was admitted in June for rectal bleeding and anemia. This was diagnosed as radiation proctitis. He has a history of blood transfusion in 2012 when he was admitted for Staphylococcus aureus sepsis and anemia. He was told of leukopenia for many years and reviewing [employer], his white count has ranged from 3 to 4 thousand dating back to 2003 with normal counts in 2005. Since 2006 or 2007, it has declined and more recently since 2012, it has stayed under 5000 consistently. He has developed thrombocytopenia since 2012. Prior to that, platelet counts have been normal. His hemoglobin has always been low; back in 2013 it was in the 13 g/dL range but since 2005 it has gone up and down ranging between been 10 to 11 g/dL and in 2013 it has been below 10 g/dL. He does have a history of excess alcohol consumption for many years and he quit in 2013. Ultrasound of the abdomen in March 2014 revealed enlarged liver, showing diffuse liver disease and splenomegaly with spleen size of 19 cm. Hematology consultation on August 23, 2014 revealed anemia with a hemoglobin of 9.4 g/dL, white count of 2.3, platelets of 103,000. Iron studies showed a ferritin of 8 with iron saturation of 20%. LDH normal. LFTs normal. Vitamin B12 and folate levels normal. Beta-2 microglobulin slightly elevated at 3.05. Serum protein electrophoresis revealed monoclonal protein, which was too small to quantitate. Immunoglobulin levels were normal. Rheumatoid factor less than 15 in the past. Repeat ultrasound of abdomen performed September 11, 2014 showed hepatosplenomegaly similar to previous exam. Dilated portal vein suggestive of portal hypertension. Thickened, edematous gallbladder similar to March 2014 exam. The patient was admitted again in May 2015 with symptoms of painful hematuria. He developed significant anemia with a hemoglobin dropping to 7.7 g/dL for which he received 2 to 3 units of blood transfusion. Interval History Interval history: Patient is here in follow-up. He denies any GI bleeding. He denies nausea, abdominal discomfort, hematochezia or melena. He feels a bit tired and is wondering if he needs iron infusion, he has not had these in many months. 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 Denies any acute complaints at this time. Review of Systems - Constitutional Denies fatigue, Denies fever(s), Reports lack of energy, Reports malaise, Denies weight loss - Cardiovascular Reports no additional cardiovascular complaints - Respiratory Reports no additional respiratory complaints - Gastrointestinal Reports no additional gastrointestinal complaints COUNTS INCLUDE 234 BEDS AT THE [facility] Medical History: Medical History (Last Reviewed 11/28/22 @ 13:34 by Rocio Viramontes) Acute lower gastrointestinal bleeding Aortic stenosis CAD (coronary artery disease) Chronic fatigue COVID-19 vaccine series completed Diabetes type 2, uncontrolled Diabetic nephropathy associated with type 2 diabetes mellitus Diabetic 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 associated with type 2 diabetes mellitus DMII (diabetes mellitus, type 2) KOEHLER (dyspnea on exertion) Dyslipidemia Esophageal varices without bleeding GERD (gastroesophageal reflux disease) History of prostate cancer HTN (hypertension) Hypertension IBS (irritable colon syndrome) Iron deficiency anemia 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 On beta kayy at home ANUJA on CPAP Polyneuropathy Prostate cancer Spinal stenosis Varices of esophagus determined by endoscopy Family History: Family History (Last Reviewed 11/28/22 @ 13:34 by Rocio Viramontes) Father CVD (cardiovascular disease) Past heart attack Mother CVD (cardiovascular disease) Brain cancer Heart problem Daughter Breast cancer Sister Breast cancer Son Alive and well Family/Other Myocardial infarction Liver cancer Surgical History: Surgical History (Last Reviewed 11/28/22 @ 13:34 by Rocio Viramontes) H/O cataract extraction History of colonoscopy History of heart artery stent History of surgery History of surgery History of transurethral resection of prostate Hx of colonoscopy Hx of endoscopy Hx of esophagogastroduodenoscopy Social History: Social History (Last Reviewed 11/28/22 @ 13:34 by Rocio Viramontes) Living Situation History: Household Members: Spouse Housing: House Are you a primary family day care worker to a significant other at home: No Do you presently have visiting nurse or other home services: No Alcohol History Details: 1. How often do you have a drink containing alcohol?: a. Never Tobacco History: Patient Tobacco Use Status: Never used Tobacco e-Cigarette/Vaping Use: Never Used Second Hand Smoke Exposure: No Substance Use History: Use of substances other than those prescribed or required for medical reasons: No Domestic Abuse History: Have you been hit, kicked, punched, or otherwise hurt by someone within the past year? 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 Current occupational status: retired Home Medications and Allergies Home Medications Medication Instructions Recorded Confirmed Type ferrous sulfate 325 mg (65 mg 325 mg PO DAILY 10/17/20 11/28/22 History iron) tablet clopidogrel 75 mg tablet 1 tab PO DAILY 06/18/22 11/28/22 History metoprolol succinate 100 mg 100 mg PO DAILY 09/03/22 11/28/22 History tablet,extended release 24 hr torsemide 20 mg tablet 20 mg PO DAILY 09/03/22 11/28/22 History Allergies Allergy/AdvReac Type Severity Reaction Status Date / Time lisinopril [From ZESTRIL] Allergy Severe UNABLE TO Verified 10/20/22 14:56 BREATH dextran 40 [DEXTRAN 40] Allergy Intermediate tachycardia Verified 10/20/22 14:56 latex [LATEX] Allergy Mild BLISTERS Verified 10/20/22 14:56 cyclobenzaprine Allergy Unknown Unknown Verified 10/20/22 14:56 [From Flexeril] egg Allergy Unknown unknown Verified 10/20/22 14:56 Iodinated Contrast Media Allergy Unknown UNKNOWN Verified 10/20/22 14:56 [CONTRAST,IV] tizanidine [From Zanaflex] Allergy Unknown Hallucinati Verified 10/20/22 14:56 ons pregabalin AdvReac Unknown hallucinati Verified 10/20/22 14:56 ons Exam Vital signs: Vital Signs Temp 97.9 F 11/28/22 13:33 Pulse 70 11/28/22 13:33 Resp 14 08/29/22 14:11 BP 152/67 H 11/28/22 13:33 Pulse Ox 96 11/28/22 13:33 O2 Del Method 11/28/22 13:33 Weight 94.8 kg BMI result Body Mass Index 30.8 - Constitutional Present: no acute distress, average body habitus - Routine HEENT Exam Head: Present: normal inspection - Routine Neck Exam Absent: lymphadenopathy - Routine Respiratory Exam Present: CTAB - Routine Cardiovascular Exam Cardiovascular: Present: S1, S2 Data - Labs CBC & Chem 7: 11/28/22 13:27 11/28/22 13:27 Assessment and Plan Patient Active problem list reviewed?: Yes (1) Anemia Status: Chronic Assessment and plan: 1. A 77-year-old male with iron deficiency anemia. He had rectal bleeding secondary to radiation proctitis and cystitis. He is on ferrous sulfate twice a day. Negative for celiac antibodies. He had an allergic reaction to iron dextran. Developed upper GI bleeding related to esophageal varices. He has undergone banding. He has been on IV Ferrlecit intermittently. He also received blood transfusion. 2. Pancytopenia, leukopenia and thrombocytopenia, which has been chronic and stable. He has evidence of hepatosplenomegaly, portal hypertension, which is probably contributing to his cytopenias. MRI abdomen in December 2019 showed chronic cirrhosis, portal venous hypertension and splenomegaly. No evidence of HCC or other liver lesions. 3. Vitamin B12 deficiency, pernicious anemia. He is positive for intrinsic factor antibodies. He is on oral B12 supplementation and adequate blood levels. 3. Renal insufficiency. He has been told of kidney injury after his recent heart surgery. This could also be contributing to his symptoms of fatigue and anemia. CBC is stable. Iron studies are pending. Follow-up in 3 months. - Time Spent With Patient Time Spent with Patient (in minutes): 15
[2022-11-28 14:00] LABS: Basophils Absolute Auto 0.1 X10*3/uL (0.0-0.2); Basophils Percent Auto 1.3 % (0-2); Eosinophils Absolute Auto 0.1 X10*3/uL (0.0-0.4); Eosinophils Percent Auto 2.6 % (0-4); Hemoglobin 10.3 g/dl (14.0-18.0); Imm Gran Abs Auto 0.03 X10*3/uL (0.00-0.03); Imm Gran Pct Auto 0.6 % (0.0-0.4); Lymphocytes Absolute Auto 0.7 X10*3/uL (1.2-4.9); Lymphocytes Percent Auto 12.6 % (20-40); Mean Corpuscular HGB Conc 32.2 g/dl (31.0-36.0); Mean Corpuscular Hemoglobin 31.5 pg (27.0-33.0); Mean Corpuscular Volume 97.9 fL (80.0-98.0); Mean Platelet Volume 12.2 fL (9.4-12.4); Monocytes Absolute Auto 0.6 X10*3/uL (0.1-1.2); Monocytes Percent Auto 10.7 % (2-11); Neutrophils Absolute Auto 3.8 x10*3/uL (2.0-8.3); Neutrophils Percent Auto 72.2 % (45-73); Red Blood Count 3.27 X10*6/uL (4.60-5.80); Red Cell Distribution Width 15.6 % (11.0-16.0); White Blood Count 5.3 X10*3/uL (4.8-10.8)
[2022-11-28 14:01] LABS: Platelet Count 81 X10*3/uL (160-400)
[2022-11-28 14:12] LABS: Anion Gap 13 (12-20); Blood Urea Nitrogen 31 mg/dL (9-16); Calcium 8.2 mg/dL (8.4-10.2); Carbon Dioxide 24 mmol/L (22-29); Chloride 109 mmol/L (96-108); Creatinine Clr Calc Pharmacy 44.4; Estimated Glomerular Filt Rate 44; Glucose Random 200 mg/dL (60-115); Potassium 4.3 mmol/L (3.3-5.1); Sodium 142 mmol/L (135-145)
[2022-11-28 14:28] LABS: Ferritin 36 ng/mL (20-250)
--- NOTE | 2022-11-28 15:15 | MHC.HEMONCMA ---
patient seen today for followup anemia, VSS,labs, will call kidney doctor Dr. Les Weinstein [address] [facility], will fax ov note over, 3 month followup.
--- NOTE | 2022-11-28 15:53 | MHC.HEMONC ---
Triage call-pt called stating he dis not understand why he needed to be seen by a indigo mixer. Last progress noted written by provider suggests renal insufficiency. This was explained to pt with expressed understanding. Rocio HALEY to schedule appointment with indigo mixer and notify pt when appointment is scheduled-pt aware
[2022-11-28 16:17] LABS: Iron 74 mcg/dL (45-160); Percent Iron Saturation 23 % (15-50); Total Iron Binding Capacity 321 mcg/dL (228-428); Unsaturated Iron Binding 247 ug/dL
[2022-11-28 16:44] LABS: Vitamin B12 1670 pg/mL (200-900)
--- NOTE | 2022-12-01 15:24 | MHC.HEMONCMA ---
faxed last office note over to Dr. Beth Hogue at [facility], fax#[phone], .
--- NOTE | 2023-02-24 11:56 | HO.HEMONCSCH ---
Called patient to confirm appointment for 02/25, patient states he has been in hospital for 12 days and cannot make it to appt. States he had a blood transfusion done.
--- NOTE | 2023-08-10 14:25 | MHC.HEMONC ---
Navigator phone- Pt called. Wanted to let navigator know that he was admitted at [facility] for 2 weeks. Pt was advised to call Dr Nielsen to set up blood transfusions. Per Dr Nielsen, pt to come in for a type & screen today. MATI Burger notified
[2023-08-10 15:23] LABS: MANUAL DIFF FLAG NO
[2023-08-10 15:29] LABS: Basophils Absolute Auto 0.1 X10*3/uL (0.0-0.2); Basophils Percent Auto 1.3 % (0-2); Eosinophils Absolute Auto 0.1 X10*3/uL (0.0-0.4); Eosinophils Percent Auto 1.8 % (0-4); Hematocrit 22.6 % (42.0-52.0); Imm Gran Abs Auto 0.02 X10*3/uL (0.00-0.03); Imm Gran Pct Auto 0.4 % (0.0-0.4); Lymphocytes Absolute Auto 0.5 X10*3/uL (1.2-4.9); Lymphocytes Percent Auto 10.7 % (20-40); Mean Corpuscular HGB Conc 29.2 g/dl (31.0-36.0); Mean Corpuscular Hemoglobin 25.5 pg (27.0-33.0); Mean Corpuscular Volume 87.3 fL (80.0-98.0); Mean Platelet Volume 10.4 fL (9.4-12.4); Monocytes Absolute Auto 0.6 X10*3/uL (0.1-1.2); Monocytes Percent Auto 12.3 % (2-11); Neutrophils Absolute Auto 3.4 x10*3/uL (2.0-8.3); Neutrophils Percent Auto 73.5 % (45-73); Platelet Count 143 X10*3/uL (160-400); Red Blood Count 2.59 X10*6/uL (4.60-5.80); Red Cell Distribution Width 16.9 % (11.0-16.0); White Blood Count 4.6 X10*3/uL (4.8-10.8)
[2023-08-10 15:44] LABS: Hemoglobin 6.6 g/dl (14.0-18.0)
[2023-08-10 19:18] LABS: Glucose, Whole Blood 116 mg/dL (60-115)
--- NOTE | 2023-08-11 11:22 | MHC.HEMONC ---
Triage call- Pt called to book repeat labs. Per Dr Nielsen Booked for next week 08/17/23 at 11AM. Pt notified.
--- NOTE | 2023-08-17 15:51 | MHC.HEMONC ---
Pt scheduled for labs today but missed appointment. Telephone call to pt, and he states he was just discharged from [facility]. He states he had transfusion of 2 units prbc here in the ED last week, then after he was home, he became very edematous. He went to [facility] and was admitted. He was receiving antibiotics and diuretics. He states they switched him to a different diuretic. Now he is home, but will need to reschedule his appointment. Will update Dr Nielsen, then will call pt to reschedule.
--- NOTE | 2023-08-25 14:06 | MHC.HEMONC ---
Triage call from pt. He states he had home lab draw today, and he received a call from [facility] stating his hgb was 6, and that he needed to contact his digital community manager for a transfusion. Discussed coming in today for lab draw/type and screen, then we would schedule him to come in for transfusion. Pt became very upset, stating he needs a transfusion, and wanted to receive it today. Explained to pt that he would not have time for 2 units prbc in office today due to the time, but that if he felt he didn't want to wait until tomorrow, he could go to ED for transfusion. He again became upset, stating he would be there too long, and pt hung up. Carmen Hart, nurse navigator, spoke with [facility] and she was able to get pt to ED. Dr Nielsen to call to speak with MD from ED.
--- NOTE | 2023-08-26 14:19 | MHC.HEMONC ---
Orders faxed to [facility] for weekly CBC per Dr Nielsen to see if transfusion of RBCs is needed.
--- NOTE | 2023-09-01 16:52 | MHC.HEMONC ---
Nurse called [facility], as no results were received, since pt was ordered to have weekly CBC drawn on Mondays by [facility]. [facility] confirmed that blood was drawn on 08/31 and sent to [facility]. Nurse called [facility], requested fax, determined incorrect fax number for this clinic had been written on requisition form. Nurse received fax of CBC, Hgb resulted at 8.9. Nurse informed Dr. Nielsen, who signed written order for IV Venofer weekly x5 weeks. Nurse submitted to [facility] to check PA. Nurse also notified pt at home by phone, also he will be notified of 1st Venofer infusion appt once booked. Pt said he was very tired, could barely stand up today, nurse encouraged pt to go back to ER if he becomes too weak to move. Nurse also told pt that he will continue to have weekly lab draws by [facility].
--- NOTE | 2023-09-02 09:33 | HO.HEMONCPA ---
NO PA NEEDED FOR [place] [id number] COVERED BY MEDICARE PART B FAXED TO [facility] FOR SCHEDULING
--- NOTE | 2023-09-09 13:52 | MHC.HEMONC ---
Labs faxed from [facility] reference lab. HGB 8.7, PLT 81, RDW-SD 57.3, Reviewed with Dr Nielsen. Weekly Labs per DR Nielsen. Pt has [facility], they do weekly labs on Mondays.
--- NOTE | 2023-09-10 10:28 | MHC.HEMONC ---
Call placed to patient HGB 7.8 continue weekly labs home draw by [facility]. Pt aware. No other questions.
--- NOTE | 2023-09-16 13:48 | MHC.HEMONC ---
Call from [facility] to inform me that pt will be discharged from [facility] and therefore will not be getting weekly lab draws. I have sent signed order from Dr Nielsen to [facility] to see if they could do his draws. [facility] to inform patient.
--- NOTE | 2023-09-16 16:37 | MHC.HEMONC ---
HGB 8.9 09/15/23. Dr Nielsen aware. pt to continue weekly labs and iron infusions.
--- NOTE | 2023-09-18 16:58 | HO.HEMONCSCH ---
Pt called, asked for clarification of upcoming appt dates and times. Nurse clarified that weekly Thu morning lab appts are simply when [facility] lab phlebotomists will come to his home to draw his blood, and will call him before arriving. Then, nurse confirmed w/ pt he has Venofer infusion sched on 09/21/23 at 2:30pm, and finally, confirmed w/ pt that he has f/u appt w/ Dr. Nielsen on 09/22/23 at 2:00pm. Pt asked this nurse to repeat appt dates/times several more times, while he and his became increasingly agitated until they finally wrote down the appts and were able to repeat them back. Nurse also advised pt that he may call this clinic and hit option 2 for the nurses, cautioned that nurses may not always be able to answer the phone, but that nurses will respond to any and all voicemails left on this extension.
[2023-09-21 14:47] VITALS: BP 140/61; PULSE 88; RESP 20; TEMP 36.6; O2SAT 99
--- NOTE | 2023-09-21 14:47 | P.PNHO-ONC_ITS ---
Medical Summary - Medical Summary Date of Service: 09/21/23 Chief complaint: follow-up Primary Care Provider: Roberto Carlos Cisneros PA-C Medical Summary: Diagnosis: Iron deficiency anemia Mr. Lopes has an extensive medical history, with the frequent hospitalizations in the last 2 years. He has a long-standing history of type 2 diabetes mellitus, coronary artery disease. In August 2012, he was diagnosed with prostate cancer, underwent laser surgery, followed by radiation therapy, which he completed in April 2014. He is currently on Trelstar (LHRH agonist therapy) every 6 months under the care of Dr. Dudley. He was admitted in June for rectal bleeding and anemia. This was diagnosed as radiation proctitis. He has a history of blood transfusion in 2012 when he was admitted for Staphylococcus aureus sepsis and anemia. He was told of leukopenia for many years and reviewing [employer], his white count has ranged from 3 to 4 thousand dating back to 2003 with normal counts in 2005. Since 2006 or 2007, it has declined and more recently since 2012, it has stayed under 5000 consistently. He has developed thrombocytopenia since 2012. Prior to that, platelet counts have been normal. His hemoglobin has always been low; back in 2013 it was in the 13 g/dL range but since 2005 it has gone up and down ranging between been 10 to 11 g/dL and in 2013 it has been below 10 g/dL. He does have a history of excess alcohol consumption for many years and he quit in 2013. Ultrasound of the abdomen in March 2014 revealed enlarged liver, showing diffuse liver disease and splenomegaly with spleen size of 19 cm. Hematology consultation on August 23, 2014 revealed anemia with a hemoglobin of 9.4 g/dL, white count of 2.3, platelets of 103,000. Iron studies showed a ferritin of 8 with iron saturation of 20%. LDH normal. LFTs normal. Vitamin B12 and folate levels normal. Beta-2 microglobulin slightly elevated at 3.05. Serum protein electrophoresis revealed monoclonal protein, which was too small to quantitate. Immunoglobulin levels were normal. Rheumatoid factor less than 15 in the past. Repeat ultrasound of abdomen performed September 11, 2014 showed hepatosplenomegaly similar to previous exam. Dilated portal vein suggestive of portal hypertension. Thickened, edematous gallbladder similar to March 2014 exam. The patient was admitted again in May 2015 with symptoms of painful hematuria. He developed significant anemia with a hemoglobin dropping to 7.7 g/dL for which he received 2 to 3 units of blood transfusion. Interval History Interval history: Patient is here in follow-up. He has had multiple medical problems in the last 6 months. He was admitted many times to [facility] and received blood transfusions.In the fall a month ago he was diagnosed with bacteremia and endocarditis and required IV antibiotics for 6 weeks. He just had his PICC line removed. He denies any fever or chills. He is scheduled today for iron infusion. He is hoping to get elderly care services as he lives alone at home with his who is dependent on him for care. He has become quite weak in the last few months. He does have visiting nurses from [facility]. He was admitted to [facility] for acute anemia. Although he was Hemoccult positive, it was felt that blood loss was secondary to left humerus fracture with hematoma secondary to mechanical fall. Review of Systems - Constitutional Reports as per HPI, Reports fatigue, Reports lack of energy, Reports malaise, Reports weight loss - Cardiovascular Reports no additional cardiovascular complaints - Respiratory Reports no additional respiratory complaints - Gastrointestinal Reports no additional gastrointestinal complaints [facility] Medical History: Medical History (Last Updated 09/21/23 @ 15:56 by Wanda Nielsen MD) Acute lower gastrointestinal bleeding Aortic stenosis CAD (coronary artery disease) Chronic fatigue COVID-19 vaccine series completed Diabetes type 2, uncontrolled Diabetic nephropathy associated with type 2 diabetes mellitus Diabetic 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 associated with type 2 diabetes mellitus DMII (diabetes mellitus, type 2) KOEHLER (dyspnea on exertion) Dyslipidemia Esophageal varices without bleeding Fracture of left humerus GERD (gastroesophageal reflux disease) History of prostate cancer HTN (hypertension) Hypertension IBS (irritable colon syndrome) Iron deficiency anemia 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 On beta kayy at home ANUJA on CPAP Polyneuropathy Prostate cancer Spinal stenosis Varices of esophagus determined by endoscopy Family History: Family History (Last Reviewed 09/08/23 @ 14:14 by Chao Lynne MD) Father CVD (cardiovascular disease) Past heart attack Mother CVD (cardiovascular disease) Brain cancer Heart problem Daughter Breast cancer Sister Breast cancer Son Alive and well Family/Other Myocardial infarction Liver cancer Surgical History: Surgical History (Last Updated 09/21/23 @ 15:56 by Wanda Nielsen MD) H/O cataract extraction History of colonoscopy History of heart artery stent History of surgery History of surgery History of transurethral resection of prostate Hx of colonoscopy Hx of endoscopy Hx of esophagogastroduodenoscopy S/P infectious endocarditis Social History: Social History (Last Reviewed 09/08/23 @ 14:14 by Chao Lynne MD) Living Situation History: Household Members: Spouse Household Members Other:: Myesha marie Housing: House Are you a primary wild animal caretaker to a significant other at home: No Do you presently have visiting nurse or other home services: Yes Tobacco History: Patient Tobacco Use Status: Never used Tobacco e-Cigarette/Vaping Use: Never Used Second Hand Smoke Exposure: No Occupation Assessmet: service: No Current occupational status: retired Home Medications and Allergies Home Medications Medication Instructions Recorded Confirmed Type cyanocobalamin (vitamin B-12) 500 1,000 mcg PO BEDTIME 12/29/22 09/08/23 History mcg tablet ferrous sulfate 325 mg (65 mg 325 mg PO DAILY 04/29/23 09/08/23 History iron) tablet,delayed release bumetanide 1 mg tablet 1 mg PO DAILY 08/25/23 09/08/23 History gabapentin 400 mg capsule 400 mg PO BID 08/25/23 09/08/23 History spironolactone 100 mg tablet 100 mg PO DAILY 08/25/23 09/08/23 History Allergies Allergy/AdvReac Type Severity Reaction Status Date / Time KARL Inhibitors Allergy Severe Angioedema Verified 09/08/23 13:41 dextran 40 [DEXTRAN 40] Allergy Intermediate tachycardia Verified 09/08/23 13:41 latex [LATEX] Allergy Mild BLISTERS Verified 09/08/23 13:41 lisinopril [From Zestril] Allergy Mild Unknown Verified 09/08/23 13:41 Iodinated Contrast Media Allergy Unknown UNKNOWN Verified 09/08/23 13:41 [CONTRAST,IV] Exam Vital signs: Vital Signs Temp 97.9 F 11/28/22 13:33 Pulse 70 11/28/22 13:33 Resp 14 08/29/22 14:11 BP 152/67 H 11/28/22 13:33 Pulse Ox 96 11/28/22 13:33 O2 Del Method Room Air 11/28/22 13:33 Weight 94.8 kg BMI result Body Mass Index 30.8 - Constitutional Present: no acute distress, average body habitus - Routine HEENT Exam Head: Present: normal inspection - Routine Neck Exam Absent: lymphadenopathy - Routine Respiratory Exam Present: CTAB - Routine Cardiovascular Exam Cardiovascular: Present: S1, S2 Data - Labs CBC & Chem 7: 09/21/23 14:39 11/28/22 13:27 Assessment and Plan Patient Active problem list reviewed?: Yes (1) Anemia Status: Chronic Assessment and plan: 1. A 78-year-old male with iron deficiency anemia. He had rectal bleeding secondary to radiation proctitis and cystitis. He is on ferrous sulfate twice a day. Negative for celiac antibodies. He had an allergic reaction to iron dextran. Developed upper GI bleeding related to esophageal varices. He has undergone banding. He has been on IV Ferrlecit intermittently. He also received blood transfusion. 2. Pancytopenia, leukopenia and thrombocytopenia, which has been chronic and stable. He has evidence of hepatosplenomegaly, portal hypertension, which is probably contributing to his cytopenias. MRI abdomen in December 2019 showed chronic cirrhosis, portal venous hypertension and splenomegaly. No evidence of HCC or other liver lesions. 3. Vitamin B12 deficiency, pernicious anemia. He is positive for intrinsic factor antibodies. He is on oral B12 supplementation and adequate blood levels. 3. Renal insufficiency. This is stable. 4. Recent treatment 2021, for endocarditis as well as hematoma secondary to left humerus fracture which caused acute worsening of his anemia. He has received multiple units of blood transfusion. He has been scheduled for Venofer infusion. CBC is stable, anemia has improved slightly. Follow-up in 1 months. - Time Spent With Patient Time Spent with Patient (in minutes): 20
--- NOTE | 2023-09-21 15:19 | MHC.HEMONC ---
Here for follow up prior to iron infusion scheduled for today. States he is feeling pretty well. Labs drawn, Dr Nielsen in to see pt. Pt brought to [facility] for iron infusion.
--- NOTE | 2023-09-28 13:51 | MHC.HEMONC ---
Triage call: Patient called, he is concerned that his blood was not drawn today through [facility] and he is scheduled for Iron infusion Thursday. Per patient Dr. Nielsen wants labs completed weekly. In reviewing previous notes- patient was discharged from [facility] and our lab department will be completing home lab draws weekly. Verified with Grace in Lab- patient will be drawn every Thursday between approx 10-11am. Patient updated over phone.
--- NOTE | 2023-09-29 14:58 | MHC.HEMONC ---
Pt was called at home to notify him of Hgb of 8.0 today, after blood was drawn at home by [facility] draw this morning. Pt was reminded of his appt tomorrow for Venofer infusion in the afternoon. He said he'd be about a half hour late, Vernell at [facility] was notified, said it was alright.
--- NOTE | 2023-10-05 14:35 | HO.HEMONCSCH ---
Pt called, said that nobody had called to tell him they were coming to draw his blood today. Nurse called pt back, reminded him that his weekly lab draws [place] [facility] [place] on Tuesdays. Pt was appreciative. Nurse also reminded him that he has Venofer infusion this Thur, 10/08 at 14:30.
--- NOTE | 2023-10-06 12:08 | MHC.HEMONC ---
Home lab draw done. Hgb 7.[address] Nielsen is aware. Venofer infusion canceled and pt scheduled for transfusion for 10/08/23. Pt called and is aware.
[2023-10-08] VITALS (7 sets, daily range): BP systolic 112–139; BP diastolic 51–81; PULSE 64–79; RESP 17–20; TEMP 36.6–37.1; O2SAT 97; BMI 26.1
[2023-10-08 09:20] LABS: MANUAL DIFF FLAG NO
[2023-10-08 09:30] LABS: Basophils Absolute Auto 0.1 X10*3/uL (0.0-0.2); Basophils Percent Auto 1.1 % (0-2); Eosinophils Absolute Auto 0.1 X10*3/uL (0.0-0.4); Eosinophils Percent Auto 2.5 % (0-4); Hematocrit 24.5 % (42.0-52.0); Hemoglobin 7.4 g/dl (14.0-18.0); Imm Gran Abs Auto 0.02 X10*3/uL (0.00-0.03); Imm Gran Pct Auto 0.4 % (0.0-0.4); Lymphocytes Absolute Auto 0.6 X10*3/uL (1.2-4.9); Lymphocytes Percent Auto 10.7 % (20-40); Mean Corpuscular HGB Conc 30.2 g/dl (31.0-36.0); Mean Corpuscular Hemoglobin 28.1 pg (27.0-33.0); Mean Corpuscular Volume 93.2 fL (80.0-98.0); Monocytes Absolute Auto 0.7 X10*3/uL (0.1-1.2); Neutrophils Absolute Auto 3.8 x10*3/uL (2.0-8.3); Neutrophils Percent Auto 72.3 % (45-73); Red Blood Count 2.63 X10*6/uL (4.60-5.80); Red Cell Distribution Width 18.9 % (11.0-16.0); White Blood Count 5.2 X10*3/uL (4.8-10.8)
[2023-10-08 09:34] LABS: Platelet Count 85 X10*3/uL (160-400)
[2023-10-08 09:56] LABS: Iron 160 mcg/dL (45-160); Percent Iron Saturation 49 % (15-50); Total Iron Binding Capacity 328 mcg/dL (228-428); Unsaturated Iron Binding 168 ug/dL
[2023-10-08 10:10] LABS: Ferritin 60 ng/mL (20-250)
--- NOTE | 2023-10-08 14:13 | MHC.HEMONC ---
Pt here for 2 units RBC's. H & H 7.4/23.9/platelets 87. Consent for blood transfusion obtained. Vital signs as noted. #22 angio inserted in right forearm with blood return noted. 2 units RBC's given as ordered with continued stable vital signs-see TAR. Peripheral IV removed-no edema or redness at site after removal of IV. Next appointment scheduled. Discharge packet given. Declines wheelchair for discharge.
--- NOTE | 2023-10-13 17:20 | MHC.HEMONC ---
Pt had blood drawn at home by [facility], Hgb resulted at 8.0 today, Dr. Neilsen was notified, ordered pt to receive x1 unit PRBC this week. Nurse called pt at home, he was unable to book transfusion for tomorrow, but nurse booked transfusion appt for 10/16/23 at 09:00, w/ type and screen ordered for that day as well. Nurse notified [facility] at [facility].
[2023-10-16 09:19] LABS: MANUAL DIFF FLAG NO
[2023-10-16 09:21] LABS: Basophils Absolute Auto 0.1 X10*3/uL (0.0-0.2); Basophils Percent Auto 1.1 % (0-2); Eosinophils Absolute Auto 0.1 X10*3/uL (0.0-0.4); Hematocrit 26.5 % (42.0-52.0); Hemoglobin 8.3 g/dl (14.0-18.0); Imm Gran Abs Auto 0.02 X10*3/uL (0.00-0.03); Imm Gran Pct Auto 0.4 % (0.0-0.4); Lymphocytes Absolute Auto 0.6 X10*3/uL (1.2-4.9); Lymphocytes Percent Auto 10.7 % (20-40); Mean Corpuscular HGB Conc 31.3 g/dl (31.0-36.0); Mean Corpuscular Hemoglobin 29.1 pg (27.0-33.0); Mean Platelet Volume 11.4 fL (9.4-12.4); Monocytes Absolute Auto 0.8 X10*3/uL (0.1-1.2); Monocytes Percent Auto 13.8 % (2-11); Platelet Count 95 X10*3/uL (160-400); Red Blood Count 2.85 X10*6/uL (4.60-5.80); Red Cell Distribution Width 16.8 % (11.0-16.0); White Blood Count 5.5 X10*3/uL (4.8-10.8)
[2023-10-16 09:30] VITALS: BP 109/55; PULSE 75; RESP 18; TEMP 36.6; O2SAT 100; BMI 25.5
[2023-10-16 10:35] VITALS: BP 109/55; PULSE 72; RESP 18; TEMP 36.6
[2023-10-16 10:50] VITALS: BP 124/56; PULSE 75; RESP 18; TEMP 36.4
[2023-10-16 12:28] VITALS: BP 127/56; PULSE 72; RESP 18; TEMP 36.4
--- NOTE | 2023-10-16 13:33 | MHC.HEMONC ---
Here for transfusion. States he is feeling well except he didn't get any sleep last night. Hgb 8.0 on 10/14. Consent signed. IV started right AC with good blood return noted. Pt received one unit prbc and tolerated well. No s/s transfusion reaction. Lung sounds clear throughout. IV removed with no redness or swelling at the site. Has follow up with Dr Nielsen scheduled for 10/20 at 1pm. Departure packet given and pt brought to front lobby via wheelchair.
--- NOTE | 2023-10-23 12:57 | PM.HEMONCPN ---
Medical Summary - Medical Summary Date of Service: 10/26/23 Chief complaint: Follow-up Primary Care Provider: Roberto Carlos Cisneros PA-C Medical Summary: Diagnosis: Iron deficiency anemia Mr. Lopes has an extensive medical history, with the frequent hospitalizations in the last 2 years. He has a long-standing history of type 2 diabetes mellitus, coronary artery disease. In August 2012, he was diagnosed with prostate cancer, underwent laser surgery, followed by radiation therapy, which he completed in April 2014. He is currently on Trelstar (LHRH agonist therapy) every 6 months under the care of Dr. Dudley. He was admitted in June for rectal bleeding and anemia. This was diagnosed as radiation proctitis. He has a history of blood transfusion in 2012 when he was admitted for Staphylococcus aureus sepsis and anemia. He was told of leukopenia for many years and reviewing [employer], his white count has ranged from 3 to 4 thousand dating back to 2003 with normal counts in 2005. Since 2006 or 2007, it has declined and more recently since 2012, it has stayed under 5000 consistently. He has developed thrombocytopenia since 2012. Prior to that, platelet counts have been normal. His hemoglobin has always been low; back in 2013 it was in the 13 g/dL range but since 2005 it has gone up and down ranging between been 10 to 11 g/dL and in 2013 it has been below 10 g/dL. He does have a history of excess alcohol consumption for many years and he quit in 2013. Ultrasound of the abdomen in March 2014 revealed enlarged liver, showing diffuse liver disease and splenomegaly with spleen size of 19 cm. Hematology consultation on August 23, 2014 revealed anemia with a hemoglobin of 9.4 g/dL, white count of 2.3, platelets of 103,000. Iron studies showed a ferritin of 8 with iron saturation of 20%. LDH normal. LFTs normal. Vitamin B12 and folate levels normal. Beta-2 microglobulin slightly elevated at 3.05. Serum protein electrophoresis revealed monoclonal protein, which was too small to quantitate. Immunoglobulin levels were normal. Rheumatoid factor less than 15 in the past. Repeat ultrasound of abdomen performed September 11, 2014 showed hepatosplenomegaly similar to previous exam. Dilated portal vein suggestive of portal hypertension. Thickened, edematous gallbladder similar to March 2014 exam. The patient was admitted again in May 2015 with symptoms of painful hematuria. He developed significant anemia with a hemoglobin dropping to 7.7 g/dL for which he received 2 to 3 units of blood transfusion. Interval History Interval history: Patient is here in follow-up. He is doing about the same. He feels quite weak and tired overall. He has been receiving blood transfusions intermittently. He is accompanied by his today. Review of Systems - Constitutional Reports as per HPI, Denies lack of energy - Cardiovascular Reports no additional cardiovascular complaints - Respiratory Reports no additional respiratory complaints - Gastrointestinal Reports no additional gastrointestinal complaints [facility] Medical History: Medical History (Last Reviewed 10/22/23 @ 14:17 by WILLIE English) Abscess in epidural space of cervical spine Acute lower gastrointestinal bleeding Aortic stenosis CAD (coronary artery disease) Chronic fatigue COVID-19 vaccine series completed Diabetes type 2, uncontrolled Diabetic nephropathy associated with type 2 diabetes mellitus Diabetic 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 associated with type 2 diabetes mellitus DMII (diabetes mellitus, type 2) KOEHLER (dyspnea on exertion) Dyslipidemia Esophageal varices without bleeding Fracture of left humerus GERD (gastroesophageal reflux disease) History of prostate cancer HTN (hypertension) Hypertension IBS (irritable colon syndrome) Infective endocarditis Iron deficiency anemia 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 On beta kayy at home ANUJA on CPAP Osteomyelitis of cervical spine Polyneuropathy Prostate cancer Spinal stenosis Streptococcal bacteremia Varices of esophagus determined by endoscopy Family History: Family History (Last Reviewed 10/22/23 @ 14:17 by WILLIE English) Father CVD (cardiovascular disease) Past heart attack Mother CVD (cardiovascular disease) Brain cancer Heart problem Daughter Breast cancer Sister Breast cancer Son Alive and well Family/Other Myocardial infarction Liver cancer Surgical History: Surgical History (Last Reviewed 10/22/23 @ 14:17 by WILLIE English) H/O cataract extraction History of colonoscopy History of heart artery stent History of surgery History of surgery History of transurethral resection of prostate Hx of colonoscopy Hx of endoscopy Hx of esophagogastroduodenoscopy S/P infectious endocarditis Social History: Social History (Last Reviewed 10/22/23 @ 14:17 by WILLIE English) Living Situation History: Household Members: Spouse Household Members Other:: Myesha Housing: House Are you a primary care transitions manager to a significant other at home: No Do you presently have visiting nurse or other home services: Yes Alcohol History Details: 1. How often do you have a drink containing alcohol?: a. Never Tobacco History: Patient Tobacco Use Status: Never used Tobacco e-Cigarette/Vaping Use: Never Used Second Hand Smoke Exposure: No Substance Use History: Use of substances other than those prescribed or required for medical reasons: No Domestic Abuse History: Have you been hit, kicked, punched, or otherwise hurt by someone within the past year? If so, by whom?: No Do you feel safe in your current relationship?: Yes Homicidal Assessment: Do you have thoughts of harming others: None Do you have a plan to hurt others: No Plan Do you have the means to hurt others: No Nutrition Assessment: Recently lost weight without trying: No Occupation Assessmet: service: No Current occupational status: retired Home Medications and Allergies Home Medications Medication Instructions Recorded Confirmed Type cyanocobalamin (vitamin B-12) 500 1,000 mcg PO BEDTIME 12/29/22 10/23/23 History mcg tablet ferrous sulfate 325 mg (65 mg 325 mg PO DAILY 04/29/23 10/23/23 History iron) tablet,delayed release bumetanide 1 mg tablet 1 mg PO DAILY 08/25/23 10/23/23 History gabapentin 400 mg capsule 400 mg PO BID 08/25/23 10/23/23 History spironolactone 100 mg tablet 100 mg PO DAILY 08/25/23 10/23/23 History Allergies Allergy/AdvReac Type Severity Reaction Status Date / Time KARL Inhibitors Allergy Severe Angioedema Verified 10/21/23 13:44 dextran 40 [DEXTRAN 40] Allergy Intermediate tachycardia Verified 10/21/23 13:44 latex [LATEX] Allergy Mild BLISTERS Verified 10/21/23 13:44 lisinopril [From Zestril] Allergy Mild Unknown Verified 10/21/23 13:44 Iodinated Contrast Media Allergy Unknown UNKNOWN Verified 10/21/23 13:44 [CONTRAST,IV] Exam Vital signs: Vital Signs Temp 97.5 F 10/16/23 12:28 Pulse 72 10/16/23 12:28 Resp 18 10/16/23 12:28 BP 127/56 L 10/16/23 12:28 Pulse Ox 100 10/16/23 09:30 O2 Del Method Room Air 10/16/23 09:30 Weight 78.3 kg BMI result Body Mass Index 25.5 - Constitutional Present: no acute distress, average body habitus - Routine HEENT Exam Head: Present: normal inspection - Routine Neck Exam Absent: lymphadenopathy - Routine Respiratory Exam Present: CTAB - Routine Cardiovascular Exam Cardiovascular: Present: S1, S2 Data - Labs CBC & Chem 7: 10/23/23 13:10 11/28/22 13:27 Assessment and Plan Patient Active problem list reviewed?: Yes (1) Anemia Status: Chronic Assessment and plan: 1. A 78-year-old male with iron deficiency anemia. He had rectal bleeding secondary to radiation proctitis and cystitis. He is on ferrous sulfate twice a day. Negative for celiac antibodies. He had an allergic reaction to iron dextran. Developed upper GI bleeding related to esophageal varices. He has undergone banding. He has been on IV Ferrlecit intermittently. He also received blood transfusion. 2. Pancytopenia, leukopenia and thrombocytopenia, which has been chronic and stable. He has evidence of hepatosplenomegaly, portal hypertension, which is probably contributing to his cytopenias. MRI abdomen in December 2019 showed chronic cirrhosis, portal venous hypertension and splenomegaly. No evidence of HCC or other liver lesions. 3. Vitamin B12 deficiency, pernicious anemia. He is positive for intrinsic factor antibodies. He is on oral B12 supplementation and adequate blood levels. 3. Renal insufficiency. This is stable. 4. Recent treatment 2021, for endocarditis as well as hematoma secondary to left humerus fracture which caused acute worsening of his anemia. He has received multiple units of blood transfusion. He has received Venofer infusion. I am starting him on Procrit as his anemia could be related to chronic kidney disease as well. His ferritin is below 50, he will be restarted on Venofer infusions. Follow-up in 1 months. - Time Spent With Patient Time Spent with Patient (in minutes): 20
[2023-10-23 13:23] VITALS: BP 120/52; PULSE 60; RESP 20; TEMP 36.3; O2SAT 99; BMI 25.8
[2023-10-23 13:26] LABS: Hematocrit 24.4 % (42.0-52.0); Hemoglobin 7.7 g/dl (14.0-18.0); Mean Corpuscular HGB Conc 31.6 g/dl (31.0-36.0); Mean Corpuscular Hemoglobin 29.2 pg (27.0-33.0); Mean Corpuscular Volume 92.4 fL (80.0-98.0); Mean Platelet Volume 11.8 fL (9.4-12.4); Platelet Count 100 X10*3/uL (160-400); Red Blood Count 2.64 X10*6/uL (4.60-5.80); Red Cell Distribution Width 16.3 % (11.0-16.0); White Blood Count 5.9 X10*3/uL (4.8-10.8)
--- NOTE | 2023-10-23 13:32 | HO.HEMONCPA ---
NO PA NEEDED FOR PROCRIT COVERED UNDER MEDICARE PART B
[2023-10-23] MEDS: Epoetin Alfa 40,000 UNIT/ML VIAL 40000 UNIT SUBCUT (13:56)
[2023-10-23 13:58] LABS: Ferritin 40 ng/mL (20-250)
--- NOTE | 2023-10-23 14:06 | MHC.HEMONC ---
Pt will come in for labs weekly as he is starting Procrit today. I notified Grace in Phlebotomy.
--- NOTE | 2023-10-23 15:05 | MHC.HEMONC ---
Here for labs and follow up with Dr Nielsen. States he is feeling well. Had blood draw done. Hgb 7.7. Dr Nielsen aware. Plan is for pt to receive procrit today, and come back next week for labs and possible transfusion. Procrit 40,000units sc given right arm and tolerated well. Scheduled to come back Thu10/28/23 for labs and possible transfusion. Weekly labs scheduled at this time to monitor hgb.
--- NOTE | 2023-10-27 08:18 | MHC.HEMONC ---
Per Dr Nielsen-pt to have weekly lab draw at [facility] with weekly procrit injection and Venofer infusion weekly x 6. No PA required for Venofer per Melyssa Woo. Pt scheduled for lab draw and procrit injection tomorrow 10/28/23. Melyssa Woo to facilitate appointment for Venofer infusions.
[2023-10-28] VITALS (7 sets, daily range): BP systolic 106–132; BP diastolic 51–78; PULSE 62–73; RESP 16–18; TEMP 36.1–36.7; O2SAT 99
[2023-10-28 10:01] LABS: MANUAL DIFF FLAG NO
[2023-10-28 10:07] LABS: Basophils Percent Auto 0.8 % (0-2); Eosinophils Percent Auto 0.6 % (0-4); Hematocrit 22.6 % (42.0-52.0); Imm Gran Abs Auto 0.04 X10*3/uL (0.00-0.03); Imm Gran Pct Auto 0.8 % (0.0-0.4); Lymphocytes Absolute Auto 0.6 X10*3/uL (1.2-4.9); Lymphocytes Percent Auto 11.8 % (20-40); Mean Corpuscular HGB Conc 30.5 g/dl (31.0-36.0); Mean Corpuscular Hemoglobin 28.8 pg (27.0-33.0); Mean Corpuscular Volume 94.2 fL (80.0-98.0); Mean Platelet Volume 11.1 fL (9.4-12.4); Monocytes Absolute Auto 0.6 X10*3/uL (0.1-1.2); Monocytes Percent Auto 13.4 % (2-11); Neutrophils Absolute Auto 3.5 x10*3/uL (2.0-8.3); Neutrophils Percent Auto 72.6 % (45-73); Platelet Count 101 X10*3/uL (160-400); Red Cell Distribution Width 16.4 % (11.0-16.0); White Blood Count 4.8 X10*3/uL (4.8-10.8)
[2023-10-28 10:14] LABS: Hemoglobin 6.9 g/dl (14.0-18.0)
[2023-10-28 10:30] LABS: Iron 286 mcg/dL (45-160); Percent Iron Saturation 77 % (15-50); Total Iron Binding Capacity 372 mcg/dL (228-428); Unsaturated Iron Binding 86 ug/dL
[2023-10-28 10:40] LABS: Ferritin 29 ng/mL (20-250)
--- NOTE | 2023-10-28 16:38 | MHC.HEMONC ---
HGB 6.9 #22 started left lower arm. Good blood return. Transfused 2 units RBC. Lungs clear pre/post transfusion. IV removed catheter intact. Per Dr Nielsen pt to have weekly cbc and if HGB >7.5 give procrit, if HGB<7.5 then transfuse. Ferritin and iron studies reviewed with Dr Nielsen. hold off on venofer for now. Pt declined discharge packet. Pt aware weekly labs at 10am. Wheeled to main entrance.
--- NOTE | 2023-10-29 10:40 | MHC.HEMONC ---
Spoke with Kavita THORNE in [facility] to notify her that Don[facility] is on hold at this time. Pt to be coming here weekly for procrit and blood possible transfusion
[2023-11-04 10:07] LABS: MANUAL DIFF FLAG NO
[2023-11-04 10:08] VITALS: BP 101/58; PULSE 64; RESP 18; TEMP 36.3; O2SAT 97; BMI 25.8
[2023-11-04 10:19] LABS: Basophils Percent Auto 0.6 % (0-2); Eosinophils Percent Auto 0.8 % (0-4); Hemoglobin 7.8 g/dl (14.0-18.0); Imm Gran Abs Auto 0.03 X10*3/uL (0.00-0.03); Imm Gran Pct Auto 0.6 % (0.0-0.4); Lymphocytes Absolute Auto 0.5 X10*3/uL (1.2-4.9); Lymphocytes Percent Auto 10.4 % (20-40); Mean Corpuscular HGB Conc 31.2 g/dl (31.0-36.0); Mean Corpuscular Hemoglobin 28.3 pg (27.0-33.0); Mean Corpuscular Volume 90.6 fL (80.0-98.0); Mean Platelet Volume 10.7 fL (9.4-12.4); Monocytes Absolute Auto 0.7 X10*3/uL (0.1-1.2); Monocytes Percent Auto 13.9 % (2-11); Neutrophils Absolute Auto 3.6 x10*3/uL (2.0-8.3); Neutrophils Percent Auto 73.7 % (45-73); Red Blood Count 2.76 X10*6/uL (4.60-5.80); Red Cell Distribution Width 15.9 % (11.0-16.0); White Blood Count 4.9 X10*3/uL (4.8-10.8)
[2023-11-04 10:22] LABS: Platelet Count 85 X10*3/uL (160-400)
[2023-11-04 10:34] LABS: Alanine Aminotransferase 43 U/L (0-40); Albumin Level 3.2 g/dL (3.5-5.0); Alkaline Phosphatase 135 U/L (39-117); Anion Gap 14 (12-20); Aspartate Amino Transferase 37 U/L (5-37); Bilirubin Total 0.7 mg/dL (0.0-1.0); Blood Urea Nitrogen 67 mg/dL (9-16); Calcium 8.4 mg/dL (8.4-10.2); Carbon Dioxide 22 mmol/L (22-29); Chloride 107 mmol/L (96-108); Creatinine Clr Calc Pharmacy 26.3; Estimated Glomerular Filt Rate 28; Glucose Random 148 mg/dL (60-115); Potassium 5.7 mmol/L (3.3-5.1); Sodium 137 mmol/L (135-145); Total Protein 5.9 g/dL (6.5-8.0)
[2023-11-04 10:34] LABS: Glucose, Whole Blood 142 mg/dL (60-115)
[2023-11-04] MEDS: Epoetin Alfa 40,000 UNIT/ML VIAL 40000 UNIT SUBCUT (11:07)
--- NOTE | 2023-11-04 12:06 | MHC.HEMONC ---
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 pt report falling at home this morning before coming here and other time before that resulting in him getting jignesh in his head. pt seems vague, more so then baseline. poc 104 vvs. hgb 7.8 40,000unit procrit given. examed by dr strickland and talked to pamela. based on above finding and kidney function pt sent to ER via w/c. report given to charge nurse
--- NOTE | 2023-11-04 14:23 | MHC.HEMONC ---
I spent 30 minutes evaluating patient this morning and discussing his recent falls and c/o dizziness. He was brought to us by Donna who saw him almost fall after driving here. His appt was for labs/?Procrit He has jignesh intact on his scalp from fall at home and ER visit (came in via EMS) on Thursday. Pt knew I would be calling his son, Blaise regarding concerns over his falls and risk with driving. I spoke to Blaise for 25 minutes on telephone. He was not available to come to see him today but says that he speaks to him daily. He said his dad is stubborn and it has been difficult to communicate with him about his needs at home. (Patient also cares for his with early dementia). Blaise said his dad has a sister nearby who drives but it is not always easy with their relationship either . He told me that his dad has arranged for [facility] to come out starting this Thursday. When I spoke to pt he said that [facility] will be doing light housework for them 3 times per week. I told the patient and his son that driving is not recommended as his hgb fluctuates as well as his blood sugar. He appeared to understand. I'm not sure if he would be a candidate for our van as his condition changes. Because patient was brought to ER from our Department, I discussed his case with Sunshine, the ER CM today. She will be recommending at the very least that HVNA be ordered for patient and blood draws could be done at home for us to monitor. He may still require blood transfusions which we could set up. Today he received Procrit but went to ER due to dizziness and kidney function values. I will continue to f/u with patient once he is back in the home.
--- NOTE | 2023-11-09 09:51 | MHC.HEMONC ---
Pt called to confirm his next appt, said he is home from the hospital. Nurse confirmed he'll continue to come for weekly labs on Thursdays at 10am. Pt requested, for this week, to please change his lab appt to early Thu, since he needs to come in for another appt anyway. Nurse did caution the pt, that if his Hgb is so low he needs a blood transfusion, it will possibly be too late in the day to receive it, and he would need to return the following day for transfusion. Pt agreed. Nurse updated appt.
--- NOTE | 2023-11-09 10:40 | MHC.HEMONC ---
I spoke to patient and told him [facility] will be drawing labs at home weekly beginning this to see if he needs Procrit or blood transfusion. Orders faxed to lab at [facility].
--- NOTE | 2023-11-09 16:02 | MHC.HEMONC ---
Pt called me to tell me that he voided BRB and is weak and his sister is taking him to ER. I wished him well and will follow.
--- NOTE | 2023-11-11 09:48 | MHC.HEMONC ---
Addendum entered by Derek Gresham RN 11/12/23 11:31: Pt called, nurse reviewed that he will not have anyone coming to draw his blood at home this week, labs drawn morning of 11/11 were used, Hgb was 7.7. Nurse reminded pt that he is currently recommended to get a procrit injection, not a blood transfusion, but he is not to come into clinic unless he has someone who can assist him w/ ambulating all the way from his home to the vehicle. Pt said he called [facility] about a ride, but they;d need 3 week notice. Nurse saked if they help a person get out of their home to the street, pt replied that they do not. Nurse added that [facility] shuttle would also not be an option as they only pick pts up from the curb, do not assist w/ ambulating from the home. Pt said he might be able to get someone to assist him to get here tomorrow, and nurse asked him to call first to make appt. Otherwise, nurse reviewed w/ pt that he is still expecting a call and/or visit from [facility] visiting nurses today, and that they will hopefully evaluate him and agree to offer services including help taking him to medical appts. If pt cannot get to clinic safely this week, he still has appt for weekly home blood draws on Thursday. Pt to call this clinic if he learns anything new. Addendum entered by Derek Gresham RN 11/11/23 17:00: Nurse checked w/ Grace at phlebotomy, who said she had cancelled home blood draw per Nurse Fareed Morales's request, thinking pt would not be d/c'd home. Nurse determined pt was d/c'd home today, had blood drawn this morning, Hgb resulting 7.7. Per parameters set by Dr. Nielsen, if pt's Hgb >7.5, he is to come to clinic for procrit injection, if less than 7.5, he would need blood transfusion. Nurse asked pt to come in on or Thu, but pt said he can barely lift his legs, knows that he is not supposed to drive anywhere. Nurse told him that he'd have to be able to walk to the street independently to take the [facility] shuttle, but pt states he cannot do that. Pt said his son had been in town to assist, but had to return home to [place] for work. Pt is home alone w/ his , for whom he is primary CG as she has dementia. Nurse also learned that pt has been assigned home care services through [facility], said that someone is scheduled to come visit him at home tomorrow to do evaluation. Nurse updated Dr. Bennett and Preschool Teacher Assistant Eliza, plan to wait for home care eval, then check in to see if they will provide pt w/ any services that may help get him transportation, as pt is not to travel alone henceforth. Original Note: Pt called from his hospital room while inpatient at [facility], said he's expecting to go home today, wants to confirm the plan for him. Nurse reminded him that Nurse Fareed Morales had arranged for him to continue getting weekly home blood draws beginning this , to iqra if he'll need procrit injection or blood transfusion. Nurse asked pt to call again when he does go home to confirm he is there when human resources vice president tries to meet him there. Nurse left message at phlebotomy requesting Grace to call and confirm that pt's home blood draw is scheduled for tomorrow, , .
[2023-11-18] VITALS (7 sets, daily range): BP systolic 87–127; BP diastolic 49–58; PULSE 60–61; RESP 16–18; TEMP 35.9–36.4; O2SAT 100; BMI 25.8
--- NOTE | 2023-11-18 17:07 | MHC.HEMONC ---
Pt was in for blood transfusion, x2 units PRBC, as home draw on 11/16 revealed Hgb of 6.9. Pt was able to get his sister, Suzanne, to help him out of his home and drive him to clinic today for transfusion. Pt had type and screen drawn, signed consent to transfuse w/ Dr. Nielsen, blood band arrive to band pt. Nurse Kendal placed 22g PIV to pt's R forearm w/ positive blood return. Nurse transfused x2 units PRBC, over which time VS remained stable and LS remained CTA. Pt's PIV was flushed and removed. Nurse called pt's sister, Britta, to come pick him up. Pt was assisted to lobby via w/c, where his sister met him to drive him home and assist him into house. Pt was given d/c packet. Pt added that [facility] had been there, but they'll only be stopping by routinely, said that home care services are supposed to come for evaluation on Thursday. Nurse encouraged him to ask about transportation to and from app. Nurse added sister Suzanne's phone # to pt's contact list: [phone]
--- NOTE | 2023-11-20 10:55 | MHC.HEMONC ---
I had asked pt yesterday to have [facility] RN call me after her visit. Jose Maria was c/o cold sx and body aches and h/a when I talked to him. I spoke with Darvin this morning via telephone. She saw Jose Maria yesterday and he had temp 100.0. negative COVID and was feeling a bit better . She admitted to [facility]. She will be having [facility] follow as well. We discussed his main issues of anemia and diabetes as well as need for safety at home with his whom he cares for. They will let us know if there are concerns and I took phone and fax of [facility] for our communication. (P) [phone] (F) [phone]. She is aware that Jose Maria will have [facility] lab draws on Tuesdays at home.
--- NOTE | 2023-11-24 17:26 | HO.HEMONCSCH ---
Pt's CBC resulted from home lab draw, Hgb of 7.5. Morales Cruz was updated, pt is no longer to receive procrit injections as they are non effective, ordered pt to receive x2 units PRBC. Nurse called pt at home, he is going to ask his sister for a ride to clinic for transfusion tomorrow morning at 09:00. Nurse notified Rafael at blood bank, pt will have type + screen when he arrives. Nurse reinforced that pt is not to drive himself and that pt can be elligible to use [facility] shuttle once he can safely ambulate independently to the sidewalk to be picked up.
[2023-11-25] VITALS (7 sets, daily range): BP systolic 108–148; BP diastolic 51–64; PULSE 58–60; RESP 16–20; TEMP 36.5–36.7; O2SAT 99; BMI 25.8
[2023-11-25 09:23] LABS: MANUAL DIFF FLAG NO
[2023-11-25 09:25] LABS: Basophils Absolute Auto 0.1 X10*3/uL (0.0-0.2); Basophils Percent Auto 1.2 % (0-2); Eosinophils Absolute Auto 0.1 X10*3/uL (0.0-0.4); Eosinophils Percent Auto 1.4 % (0-4); Hematocrit 26.1 % (42.0-52.0); Hemoglobin 7.9 g/dl (14.0-18.0); Imm Gran Abs Auto 0.01 X10*3/uL (0.00-0.03); Imm Gran Pct Auto 0.2 % (0.0-0.4); Lymphocytes Absolute Auto 0.6 X10*3/uL (1.2-4.9); Lymphocytes Percent Auto 13.7 % (20-40); Mean Corpuscular HGB Conc 30.3 g/dl (31.0-36.0); Mean Corpuscular Hemoglobin 28.4 pg (27.0-33.0); Mean Corpuscular Volume 93.9 fL (80.0-98.0); Mean Platelet Volume 10.4 fL (9.4-12.4); Monocytes Absolute Auto 0.5 X10*3/uL (0.1-1.2); Monocytes Percent Auto 12.8 % (2-11); Neutrophils Percent Auto 70.7 % (45-73); Red Blood Count 2.78 X10*6/uL (4.60-5.80); Red Cell Distribution Width 15.7 % (11.0-16.0); White Blood Count 4.2 X10*3/uL (4.8-10.8)
[2023-11-25 09:33] LABS: Platelet Count 77 X10*3/uL (160-400)
--- NOTE | 2023-11-25 16:34 | MHC.HEMONC ---
Pt was in for blood transfusion, x2 units PRBC, after home draw on 11/23 resulted w/ Hgb of 7.5. Per Dr. Nielsen, pt is no longer to receive procrit injections as they aren't working for the pt. Nurse confirmed pt's sister, Suzanne, helped him out of his home and drove him to clinic today for transfusion. Pt states he is able to walk around his neighborhood at home now, [facility] shuttle for appts. Nurse informed Dr. Nielsen of pt's opinion on this matter. Pt had type and screen drawn, signed consent to transfuse w/ Dr. Nielsen, blood bank arrived to band pt. Nurse Dahlia placed 22g PIV to pt's L hand w/ positive blood return. Nurse transfused x2 units PRBC, over which time VS remained stable and LS remained CTA. Pt's PIV was flushed and removed. Pt was given d/c packet, to have home labs drawn every Thursday. Nurse escorted pt via w/c to [facility] lobby, where he called his sister to come pick him up.
--- NOTE | 2023-12-01 13:44 | MHC.HEMONC ---
Results of home lab draw reviewed. Hgb 8.6. Does not need transfusion. Pt called and notified.
--- NOTE | 2023-12-08 12:27 | MHC.HEMONC ---
Nurse took t/c from pt, who said he was expecting to have home blood draw today, but said his home phone line hasn't been working all week, but he also has cell phone that is working. Nurse updated pt's EMR w/ his cell phone #, , and also changed it to be listed as his primary phone #. Nurse left message for Grace at phlebotomy that pt is at home, also about his phone problems and new cell #, asked if he could still get visit at home for blood draw. Nurse was later informed by insurance risk analyst Bianca that, per Grace, insurance risk analyst tried calling pt w/ new # and knocked on door, and pt answered neither phone nor door, so no blood draw could happen. Nurse called pt, confirmed that new # is correct as pt answered the phone, nurse told pt that phlebotomy was trying to reach him and knocked on his door. Pt said it was possible that this was true, but also said that his landline is now working again. Nurse told him he would request that he could have labs drawn at home the following day, 12/08, which nurse did do, leaving f/u message for Grace. Nurse asked Grace to please inform this clinic if pt cannot be drawn as then pt will have to make arrangements to travel to clinic to have blood drawn.
[2023-12-10 10:54] LABS: MANUAL DIFF FLAG NO
[2023-12-10 11:02] LABS: Basophils Absolute Auto 0.1 X10*3/uL (0.0-0.2); Basophils Percent Auto 1.2 % (0-2); Eosinophils Absolute Auto 0.1 X10*3/uL (0.0-0.4); Eosinophils Percent Auto 2.6 % (0-4); Hematocrit 26.8 % (42.0-52.0); Hemoglobin 8.5 g/dl (14.0-18.0); Imm Gran Abs Auto 0.02 X10*3/uL (0.00-0.03); Imm Gran Pct Auto 0.4 % (0.0-0.4); Lymphocytes Absolute Auto 0.5 X10*3/uL (1.2-4.9); Lymphocytes Percent Auto 9.4 % (20-40); Mean Corpuscular HGB Conc 31.7 g/dl (31.0-36.0); Mean Corpuscular Hemoglobin 28.7 pg (27.0-33.0); Mean Corpuscular Volume 90.5 fL (80.0-98.0); Mean Platelet Volume 10.8 fL (9.4-12.4); Monocytes Absolute Auto 0.6 X10*3/uL (0.1-1.2); Monocytes Percent Auto 10.8 % (2-11); Neutrophils Absolute Auto 3.8 x10*3/uL (2.0-8.3); Neutrophils Percent Auto 75.6 % (45-73); Platelet Count 107 X10*3/uL (160-400); Red Blood Count 2.96 X10*6/uL (4.60-5.80); Red Cell Distribution Width 15.5 % (11.0-16.0); White Blood Count 5.1 X10*3/uL (4.8-10.8)
--- NOTE | 2023-12-10 14:01 | MHC.HEMONC ---
Lab draw done, hgb 8.5. Does not need transfusion today. Plan is for home draw on 12/14. Pt departed via wheelchair.
--- NOTE | 2023-12-15 14:59 | MHC.HEMONC ---
Hgb 7.[address] Nielsen. Pt to come in for transfusion. Scheduled to come in 12/16. Pt aware.
[2023-12-17] VITALS (7 sets, daily range): BP systolic 94–118; BP diastolic 54–56; PULSE 61–67; RESP 17–18; TEMP 35.9–36.2; O2SAT 98; BMI 26.5
--- NOTE | 2023-12-17 11:09 | MHC.HEMONC ---
Addendum entered by Kendal Nelson RN 12/17/23 14:48: 2 units prbc infused without s/s transfusion reaction. IV removed with no redness or swelling at the site. Brought to front lobby via wheelchair, with his sister driving him home. Plan for home lab draw on 12/21. Original Note: Here for transfusion of 2 units prbc. Hgb on 12/14 was 7.5. States he wasn't feeling well yesterday, stating he had some leg pain. States he is feeling better today. IV started left forearm with good blood return noted. Consent signed. VSS. First unit started and infusing well. LS clear/diminished throughout. Call allen in reach.
--- NOTE | 2023-12-23 10:10 | PM.HEMONCPN ---
Medical Summary - Medical Summary Date of Service: 12/23/23 Chief complaint: Follow-up Primary Care Provider: Roberto Carlos Cisneros PA-C Medical Summary: Diagnosis: Iron deficiency anemia Mr. Lopes has an extensive medical history, with the frequent hospitalizations in the last 2 years. He has a long-standing history of type 2 diabetes mellitus, coronary artery disease. In August 2012, he was diagnosed with prostate cancer, underwent laser surgery, followed by radiation therapy, which he completed in April 2014. He is currently on Trelstar (LHRH agonist therapy) every 6 months under the care of Dr. Dudley. He was admitted in June for rectal bleeding and anemia. This was diagnosed as radiation proctitis. He has a history of blood transfusion in 2012 when he was admitted for Staphylococcus aureus sepsis and anemia. He was told of leukopenia for many years and reviewing [employer], his white count has ranged from 3 to 4 thousand dating back to 2003 with normal counts in 2005. Since 2006 or 2007, it has declined and more recently since 2012, it has stayed under 5000 consistently. He has developed thrombocytopenia since 2012. Prior to that, platelet counts have been normal. His hemoglobin has always been low; back in 2013 it was in the 13 g/dL range but since 2005 it has gone up and down ranging between been 10 to 11 g/dL and in 2013 it has been below 10 g/dL. He does have a history of excess alcohol consumption for many years and he quit in 2013. Ultrasound of the abdomen in March 2014 revealed enlarged liver, showing diffuse liver disease and splenomegaly with spleen size of 19 cm. Hematology consultation on August 23, 2014 revealed anemia with a hemoglobin of 9.4 g/dL, white count of 2.3, platelets of 103,000. Iron studies showed a ferritin of 8 with iron saturation of 20%. LDH normal. LFTs normal. Vitamin B12 and folate levels normal. Beta-2 microglobulin slightly elevated at 3.05. Serum protein electrophoresis revealed monoclonal protein, which was too small to quantitate. Immunoglobulin levels were normal. Rheumatoid factor less than 15 in the past. Repeat ultrasound of abdomen performed September 11, 2014 showed hepatosplenomegaly similar to previous exam. Dilated portal vein suggestive of portal hypertension. Thickened, edematous gallbladder similar to March 2014 exam. The patient was admitted again in May 2015 with symptoms of painful hematuria. He developed significant anemia with a hemoglobin dropping to 7.7 g/dL for which he received 2 to 3 units of blood transfusion. Interval History Interval history: Patient is here in follow-up. He is doing about the same. He feels quite weak and tired overall. He has been receiving blood transfusions intermittently. He is getting blood drawn once a week at home. He continues to take care of his . He is going for a colonoscopy next month. Review of Systems - Constitutional Reports as per HPI, Reports fatigue, Reports malaise, Reports weight loss [facility] Medical History: Medical History (Last Reviewed 11/09/23 @ 20:26 by WILLIE English) Abscess in epidural space of cervical spine Acute lower gastrointestinal bleeding Anemia Aortic stenosis CAD (coronary artery disease) Chronic fatigue COVID-19 vaccine series completed Diabetes type 2, uncontrolled Diabetic nephropathy associated with type 2 diabetes mellitus Diabetic 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 associated with type 2 diabetes mellitus Difficulty walking DMII (diabetes mellitus, type 2) KOEHLER (dyspnea on exertion) Dyslipidemia Esophageal varices without bleeding Fracture of left humerus GERD (gastroesophageal reflux disease) History of prostate cancer HTN (hypertension) Hyperglycemia Hypertension IBS (irritable colon syndrome) Infective endocarditis Iron deficiency anemia senior care (current) use of insulin On beta kayy at home ANUJA on CPAP Osteomyelitis of cervical spine Polyneuropathy Prostate cancer Spinal stenosis Streptococcal bacteremia Symptomatic anemia Varices of esophagus determined by endoscopy Family History: Family History (Last Reviewed 11/09/23 @ 20:26 by WILLIE English) Father CVD (cardiovascular disease) Past heart attack Mother CVD (cardiovascular disease) Brain cancer Heart problem Daughter Breast cancer Sister Breast cancer Son Alive and well Family/Other Myocardial infarction Liver cancer Surgical History: Surgical History (Last Reviewed 11/09/23 @ 20:26 by WILLIE English) H/O cataract extraction History of colonoscopy History of heart artery stent History of surgery History of surgery History of transurethral resection of prostate Hx of colonoscopy Hx of endoscopy Hx of esophagogastroduodenoscopy S/P infectious endocarditis Social History: Social History (Last Reviewed 11/09/23 @ 20:26 by WILLIE English) Living Situation History: Household Members: Significant Other Household Members Other:: Myesha Housing: House Are you a primary post anesthesia care unit nurse to a significant other at home: No Do you presently have visiting nurse or other home services: No Alcohol History Details: 1. How often do you have a drink containing alcohol?: a. Never Tobacco History: Patient Tobacco Use Status: Never used Tobacco e-Cigarette/Vaping Use: Never Used Second Hand Smoke Exposure: No Substance Use History: Use of substances other than those prescribed or required for medical reasons: No Domestic Abuse History: Have you been hit, kicked, punched, or otherwise hurt by someone within the past year? If so, by whom?: No Do you feel safe in your current relationship?: Yes Advance Directives: Advance Directives Date on File: 08/31/23 Homicidal Assessment: Do you have thoughts of harming others: None Do you have a plan to hurt others: No Plan Do you have the means to hurt others: No Nutrition Assessment: Recently lost weight without trying: No Occupation Assessmet: service: No Current occupational status: retired Home Medications and Allergies Home Medications ?Medication ?Instructions ?Recorded ?Confirmed ?Type cyanocobalamin (vitamin B-12) 500 1,000 mcg PO BEDTIME 12/29/22 11/09/23 History mcg tablet ferrous sulfate 325 mg (65 mg 325 mg PO DAILY 04/29/23 11/09/23 History iron) tablet,delayed release insulin aspart U-100 100 unit/mL 8 unit subcut TID 11/04/23 11/09/23 History (3 mL) subcutaneous pen (Novolog FlexPen U-100 Insulin aspart) dulaglutide 0.75 mg/0.5 mL 0.75 mg subcut MO 11/09/23 11/09/23 History subcutaneous pen injector (Trulicity) atorvastatin 80 mg tablet 40 mg PO BEDTIME 11/18/23 11/18/23 History Allergies Allergy/AdvReac Type Severity Reaction Status Date / Time KARL Inhibitors Allergy Severe Angioedema Verified 11/04/23 11:56 dextran 40 [DEXTRAN 40] Allergy Intermediate tachycardia Verified 11/04/23 11:56 latex [LATEX] Allergy Mild BLISTERS Verified 11/04/23 11:56 lisinopril [From Zestril] Allergy Mild Unknown Verified 11/04/23 11:56 Iodinated Contrast Media Allergy Unknown UNKNOWN Verified 11/04/23 11:56 [CONTRAST,IV] Exam Vital signs: Vital Signs Temp 96.7 F L 12/17/23 14:27 Pulse 67 12/17/23 14:27 Resp 18 12/17/23 14:27 BP 116/54 L 12/17/23 14:27 Pulse Ox 98 12/17/23 09:51 O2 Del Method Room Air 12/17/23 09:51 Weight 81.4 kg BMI result Body Mass Index 26.5 - Constitutional Present: no acute distress, average body habitus - Routine HEENT Exam Head: Present: normal inspection - Routine Neck Exam Absent: lymphadenopathy - Routine Respiratory Exam Present: CTAB - Routine Cardiovascular Exam Cardiovascular: Present: S1, S2 Data - Labs CBC & Chem 7: 12/10/23 10:50 11/04/23 10:01 Assessment and Plan Patient Active problem list reviewed?: Yes (1) Anemia Status: Chronic Assessment and plan: 1. A 78-year-old male with iron deficiency anemia. He had rectal bleeding secondary to radiation proctitis and cystitis. He is on ferrous sulfate twice a day. Negative for celiac antibodies. He had an allergic reaction to iron dextran. Developed upper GI bleeding related to esophageal varices. He has undergone banding. He has been on IV Ferrlecit intermittently. He also received blood transfusion. 2. Pancytopenia, leukopenia and thrombocytopenia, which has been chronic and stable. He has evidence of hepatosplenomegaly, portal hypertension, which is probably contributing to his cytopenias. MRI abdomen in December 2019 showed chronic cirrhosis, portal venous hypertension and splenomegaly. No evidence of HCC or other liver lesions. 3. Vitamin B12 deficiency, pernicious anemia. He is positive for intrinsic factor antibodies. He is on oral B12 supplementation and adequate blood levels. 3. Renal insufficiency. He is stage 3 kidney disease which could be contributing to his anemia. He will be started on Procrit. 4. Recent treatment 2021, for endocarditis as well as hematoma secondary to left humerus fracture which caused acute worsening of his anemia. He has received multiple units of blood transfusion. Transfuse 2 units PRBC today. Follow-up in 1 months. - Time Spent With Patient Time Spent with Patient (in minutes): 15
[2023-12-23 10:23] VITALS: BP 94/44; PULSE 60; RESP 18; TEMP 35.8
[2023-12-23 10:35] VITALS: BP 97/47; PULSE 60; RESP 18; TEMP 35.8
[2023-12-23 12:23] VITALS: BP 103/48; PULSE 60; RESP 18; TEMP 35.8
[2023-12-23 12:38] VITALS: BP 110/63; PULSE 60; RESP 16; TEMP 35.9
[2023-12-23 14:12] VITALS: BP 102/49; PULSE 61; RESP 18; TEMP 36
--- NOTE | 2023-12-23 17:32 | MHC.HEMONC ---
Pt was in for blood transfusion, x2 units PRBC, after home draw on 12/21 resulted w/ Hgb of 7.7. Per Dr. Nielsen, pt is no longer to receive procrit injections as they aren't working for the pt. Nurse confirmed pt's sister, Suzanne, helped him out of his home and drove him to clinic today for transfusion. Pt states he is able to walk around his neighborhood at home now, [facility] and take the [facility] shuttle for appts. Nurse informed Dr. Nielsen of pt's opinion on this matter. Pt had type and screen drawn, signed consent to transfuse w/ Dr. Nielsen, blood bank arrived to band pt. Nurse Dahlia placed 22g PIV to pt's L hand w/ positive blood return. Nurse transfused x2 units PRBC, over which time VS remained stable and LS remained CTA. Pt's PIV was flushed and removed. Pt was given d/c packet, to have home labs drawn every Thursday. Nurse escorted pt via w/c to [facility] lobby, where he called his sister to come pick him up.
--- NOTE | 2023-12-23 17:33 | MHC.HEMONC ---
Pt arrived via w/c for blood transfusion, x2 units PRBC, after home draw on 12/21 resulted w/ Hgb of 7.7. Pt reported he has now been driving himself w/ no issues. Nurse updated Dr. Nielsen. Pt had type and screen drawn, signed consent to transfuse w/ Dr. Nielsen, blood bank arrived to band pt. Nurse Dahlia placed 22g PIV to pt's L wrist w/ positive blood return. Nurse transfused x2 units PRBC, over which time VS remained stable and LS remained CTA. Pt's PIV was flushed and removed. Dr. Nielsen met w/ pt to discuss his anemia, pt will now come in every Thursday, (Thursday next week as clinic is closed 12/27) to have lab draw, type+screen, and receive procrit injection if needed, then pt will be scheduled to return later that week for blood transfusion if appropriate. Nurse messaged sales marketing manager Grace, asked to place pt's weekly Thursday home blood draw on hold until further notice, per Dr. Nielsen, as pt will come to this clinic every Thursday. Pt was given d/c packet, to return on 12/28 for procrit and type and screen. Nurse escorted pt to lobby via wheelchair.
[2023-12-29 09:22] LABS: MANUAL DIFF FLAG NO
[2023-12-29 09:31] LABS: Basophils Absolute Auto 0.1 X10*3/uL (0.0-0.2); Basophils Percent Auto 1.2 % (0-2); Eosinophils Absolute Auto 0.1 X10*3/uL (0.0-0.4); Eosinophils Percent Auto 2.5 % (0-4); Hematocrit 26.9 % (42.0-52.0); Hemoglobin 8.4 g/dl (14.0-18.0); Imm Gran Abs Auto 0.01 X10*3/uL (0.00-0.03); Imm Gran Pct Auto 0.2 % (0.0-0.4); Lymphocytes Absolute Auto 0.5 X10*3/uL (1.2-4.9); Lymphocytes Percent Auto 10.1 % (20-40); Mean Corpuscular HGB Conc 31.2 g/dl (31.0-36.0); Mean Corpuscular Hemoglobin 28.7 pg (27.0-33.0); Mean Corpuscular Volume 91.8 fL (80.0-98.0); Mean Platelet Volume 11.6 fL (9.4-12.4); Monocytes Absolute Auto 0.6 X10*3/uL (0.1-1.2); Monocytes Percent Auto 12.6 % (2-11); Neutrophils Absolute Auto 3.6 x10*3/uL (2.0-8.3); Neutrophils Percent Auto 73.4 % (45-73); Red Blood Count 2.93 X10*6/uL (4.60-5.80); Red Cell Distribution Width 14.7 % (11.0-16.0); White Blood Count 4.9 X10*3/uL (4.8-10.8)
[2023-12-29 09:34] LABS: Platelet Count 88 X10*3/uL (160-400)
[2023-12-29 10:13] VITALS: BP 95/55; PULSE 60; RESP 17; TEMP 36.3; O2SAT 99
[2023-12-29] MEDS: Epoetin Alfa 40,000 UNIT/ML VIAL 40000 UNIT SUBCUT (10:14)
--- NOTE | 2023-12-29 16:10 | MHC.HEMONC ---
Pt was in for weekly Procrit inj, reported his legs feel week, pt appeared pail, labs drawn/reviewed, Hgb actually improved to 8.4 since receiving x2 units PRBC last week. Pt was afebrile, mildly hypotensive, nurse admin procrit 40,000 units SC to pt's LUE, which was fairly-tolerated, declined d/c packet, was given calendar of upcoming weekly appts. Dr. Nielsen was updated, pt was taken to lobby via w/c, said his sister had brought him today and would be bringing him home. Nurse asked pt to call if he feels unwell, pt said he would not stay for blood transfusion today anyway. Pt to return next Mon, 01/03.
--- NOTE | 2024-01-04 11:36 | HO.HEMONCSCH ---
Pt did not show up for scheduled blood draw/procrit injection, nurse called pt's cell phone, no answer, left detailed VM w/ CB #, requesting CB to reschedule blood draw, also called pt's home phone, which had busy signal, informed Dr. Nielsen, will reschedule lab appt for tomorrow and try him again tomorrow, on 01/04.
[2024-01-05 10:07] LABS: MANUAL DIFF FLAG NO
[2024-01-05 10:17] LABS: Basophils Percent Auto 0.7 % (0-2); Eosinophils Absolute Auto 0.2 X10*3/uL (0.0-0.4); Eosinophils Percent Auto 3.2 % (0-4); Hematocrit 21.5 % (42.0-52.0); Imm Gran Abs Auto 0.06 X10*3/uL (0.00-0.03); Imm Gran Pct Auto 1.1 % (0.0-0.4); Lymphocytes Absolute Auto 0.5 X10*3/uL (1.2-4.9); Lymphocytes Percent Auto 9.9 % (20-40); Mean Corpuscular HGB Conc 31.2 g/dl (31.0-36.0); Mean Corpuscular Hemoglobin 28.9 pg (27.0-33.0); Mean Corpuscular Volume 92.7 fL (80.0-98.0); Mean Platelet Volume 11.5 fL (9.4-12.4); Monocytes Absolute Auto 0.7 X10*3/uL (0.1-1.2); Monocytes Percent Auto 12.7 % (2-11); Neutrophils Absolute Auto 3.9 x10*3/uL (2.0-8.3); Neutrophils Percent Auto 72.4 % (45-73); Platelet Count 103 X10*3/uL (160-400); Red Blood Count 2.32 X10*6/uL (4.60-5.80); Red Cell Distribution Width 16.8 % (11.0-16.0); White Blood Count 5.3 X10*3/uL (4.8-10.8)
[2024-01-05 10:24] LABS: Hemoglobin 6.7 g/dl (14.0-18.0)
[2024-01-05 11:14] VITALS: BP 110/39; PULSE 60; RESP 18; TEMP 36.4
[2024-01-05 11:33] VITALS: BP 137/87; PULSE 60; RESP 18; TEMP 36.4
[2024-01-05 13:15] VITALS: BP 104/46; PULSE 61; RESP 18; TEMP 36.2
[2024-01-05 13:27] VITALS: BP 104/46; PULSE 61; RESP 18; TEMP 36.2
[2024-01-05 13:47] VITALS: BP 110/47; PULSE 60; RESP 17; TEMP 35.9
--- NOTE | 2024-01-05 14:03 | MHC.HEMONC ---
two units of rbc for hgb 6.7. pt will return in one week for redraw
[2024-01-05 15:08] VITALS: BP 114/66; PULSE 60; RESP 17; TEMP 36.2
[2024-01-11 10:00] LABS: MANUAL DIFF FLAG NO
[2024-01-11 10:04] LABS: Basophils Absolute Auto 0.1 X10*3/uL (0.0-0.2); Basophils Percent Auto 1.3 % (0-2); Eosinophils Absolute Auto 0.1 X10*3/uL (0.0-0.4); Eosinophils Percent Auto 3.4 % (0-4); Hematocrit 24.2 % (42.0-52.0); Hemoglobin 7.4 g/dl (14.0-18.0); Imm Gran Abs Auto 0.03 X10*3/uL (0.00-0.03); Imm Gran Pct Auto 0.8 % (0.0-0.4); Lymphocytes Absolute Auto 0.5 X10*3/uL (1.2-4.9); Lymphocytes Percent Auto 12.4 % (20-40); Mean Corpuscular HGB Conc 30.6 g/dl (31.0-36.0); Mean Corpuscular Volume 91.7 fL (80.0-98.0); Monocytes Absolute Auto 0.5 X10*3/uL (0.1-1.2); Monocytes Percent Auto 13.2 % (2-11); Neutrophils Absolute Auto 2.6 x10*3/uL (2.0-8.3); Neutrophils Percent Auto 68.9 % (45-73); Platelet Count 104 X10*3/uL (160-400); Red Blood Count 2.64 X10*6/uL (4.60-5.80); Red Cell Distribution Width 15.6 % (11.0-16.0); White Blood Count 3.8 X10*3/uL (4.8-10.8)
[2024-01-11 10:28] VITALS: BP 100/44; PULSE 60; TEMP 36.8
[2024-01-11] MEDS: Epoetin Alfa 40,000 UNIT/ML VIAL 40000 UNIT SUBCUT (10:28)
--- NOTE | 2024-01-11 11:02 | MHC.HEMONC ---
pt recieved 40,000 unit procrit for hgb 7.4. pt will return on for redraw and possible transfusion. blood bank aware
[2024-01-14 09:48] LABS: MANUAL DIFF FLAG NO
[2024-01-14 09:52] LABS: Basophils Absolute Auto 0.1 X10*3/uL (0.0-0.2); Eosinophils Absolute Auto 0.1 X10*3/uL (0.0-0.4); Hematocrit 23.4 % (42.0-52.0); Hemoglobin 7.2 g/dl (14.0-18.0); Imm Gran Abs Auto 0.04 X10*3/uL (0.00-0.03); Imm Gran Pct Auto 0.8 % (0.0-0.4); Lymphocytes Absolute Auto 0.5 X10*3/uL (1.2-4.9); Mean Corpuscular HGB Conc 30.8 g/dl (31.0-36.0); Mean Corpuscular Hemoglobin 28.5 pg (27.0-33.0); Mean Corpuscular Volume 92.5 fL (80.0-98.0); Mean Platelet Volume 11.2 fL (9.4-12.4); Monocytes Absolute Auto 0.7 X10*3/uL (0.1-1.2); Monocytes Percent Auto 13.2 % (2-11); Neutrophils Absolute Auto 3.7 x10*3/uL (2.0-8.3); Platelet Count 118 X10*3/uL (160-400); Red Blood Count 2.53 X10*6/uL (4.60-5.80); Red Cell Distribution Width 15.8 % (11.0-16.0); White Blood Count 5.1 X10*3/uL (4.8-10.8)
[2024-01-14 10:48] VITALS: BP 123/56; PULSE 71; RESP 17; TEMP 36.7
[2024-01-14 11:03] VITALS: BP 111/46; PULSE 65; RESP 17; TEMP 36.5
[2024-01-14 12:31] VITALS: BP 109/51; PULSE 63; RESP 18; TEMP 36.6
[2024-01-14 12:51] VITALS: BP 109/51; PULSE 63; RESP 18; TEMP 36.6
[2024-01-14 13:06] VITALS: BP 123/51; PULSE 66; RESP 18; TEMP 36.7
[2024-01-14 14:40] VITALS: BP 113/53; PULSE 62; RESP 18; TEMP 36.3
--- NOTE | 2024-01-14 14:56 | MHC.HEMONC ---
Pt arrived via w/c for blood transfusion, x2 units PRBC, after pt was in on 01/10 for weekly procrit injection, Hgb resulted 7.4 on that day, so pt received procrit 40,000 units and was told to return for blood transfusion later in the week. Today, he had CBC re-drawn along w/ type + screen, Hgb today resulted at 7.2. Pt and Dr. Bennett signed consent to transfuse, blood bank arrived to band pt. Nurse Dahlia placed 22g PIV to pt's L forearm, w/ positive blood return. Nurse transfused x2 units PRBC, over which time VS remained stable and LS remained CTA. Pt's PIV was flushed and removed. Nurse assisted pt by calling [facility] to request his ride. Pt was given d/c packet, to return on 01/18/24, for next lab draw and procrit injection. Pt was escorted to lobby via w/c where he met transport van.
[2024-01-18 10:39] LABS: MANUAL DIFF FLAG NO
[2024-01-18 10:49] LABS: Basophils Percent Auto 1.3 % (0-2); Eosinophils Absolute Auto 0.1 X10*3/uL (0.0-0.4); Eosinophils Percent Auto 2.9 % (0-4); Hematocrit 23.6 % (42.0-52.0); Hemoglobin 7.3 g/dl (14.0-18.0); Imm Gran Abs Auto 0.01 X10*3/uL (0.00-0.03); Imm Gran Pct Auto 0.3 % (0.0-0.4); Lymphocytes Absolute Auto 0.4 X10*3/uL (1.2-4.9); Lymphocytes Percent Auto 12.6 % (20-40); Mean Corpuscular HGB Conc 30.9 g/dl (31.0-36.0); Mean Corpuscular Hemoglobin 28.7 pg (27.0-33.0); Mean Corpuscular Volume 92.9 fL (80.0-98.0); Mean Platelet Volume 11.3 fL (9.4-12.4); Monocytes Absolute Auto 0.4 X10*3/uL (0.1-1.2); Monocytes Percent Auto 13.5 % (2-11); Neutrophils Absolute Auto 2.2 x10*3/uL (2.0-8.3); Neutrophils Percent Auto 69.4 % (45-73); Red Blood Count 2.54 X10*6/uL (4.60-5.80); Red Cell Distribution Width 15.8 % (11.0-16.0); White Blood Count 3.1 X10*3/uL (4.8-10.8)
[2024-01-18 10:54] LABS: Platelet Count 83 X10*3/uL (160-400)
--- NOTE | 2024-01-18 10:58 | PM.HEMONCPN ---
Medical Summary - Medical Summary Date of Service: 01/18/24 Chief complaint: Weakness Primary Care Provider: Roberto Carlos Cisneros PA-C Medical Summary: Diagnosis: Iron deficiency anemia Mr. Lopes has an extensive medical history, with the frequent hospitalizations in the last 2 years. He has a long-standing history of type 2 diabetes mellitus, coronary artery disease. In August 2012, he was diagnosed with prostate cancer, underwent laser surgery, followed by radiation therapy, which he completed in April 2014. He is currently on Trelstar (LHRH agonist therapy) every 6 months under the care of Dr. Dudley. He was admitted in June for rectal bleeding and anemia. This was diagnosed as radiation proctitis. He has a history of blood transfusion in 2012 when he was admitted for Staphylococcus aureus sepsis and anemia. He was told of leukopenia for many years and reviewing [employer], his white count has ranged from 3 to 4 thousand dating back to 2003 with normal counts in 2005. Since 2006 or 2007, it has declined and more recently since 2012, it has stayed under 5000 consistently. He has developed thrombocytopenia since 2012. Prior to that, platelet counts have been normal. His hemoglobin has always been low; back in 2013 it was in the 13 g/dL range but since 2005 it has gone up and down ranging between been 10 to 11 g/dL and in 2013 it has been below 10 g/dL. He does have a history of excess alcohol consumption for many years and he quit in 2013. Ultrasound of the abdomen in March 2014 revealed enlarged liver, showing diffuse liver disease and splenomegaly with spleen size of 19 cm. Hematology consultation on August 23, 2014 revealed anemia with a hemoglobin of 9.4 g/dL, white count of 2.3, platelets of 103,000. Iron studies showed a ferritin of 8 with iron saturation of 20%. LDH normal. LFTs normal. Vitamin B12 and folate levels normal. Beta-2 microglobulin slightly elevated at 3.05. Serum protein electrophoresis revealed monoclonal protein, which was too small to quantitate. Immunoglobulin levels were normal. Rheumatoid factor less than 15 in the past. Repeat ultrasound of abdomen performed September 11, 2014 showed hepatosplenomegaly similar to previous exam. Dilated portal vein suggestive of portal hypertension. Thickened, edematous gallbladder similar to March 2014 exam. The patient was admitted again in May 2015 with symptoms of painful hematuria. He developed significant anemia with a hemoglobin dropping to 7.7 g/dL for which he received 2 to 3 units of blood transfusion. Interval History Interval history: Patient is here in follow-up. He is doing about the same. He feels quite weak and tired overall. He has been receiving blood transfusions intermittently. He is getting blood drawn once a week at home. He continues to take care of his . He denies any hematochezia, heartburn reflux symptoms. Review of Systems - Constitutional Reports lack of energy, Reports malaise - Cardiovascular Denies chest pain - Respiratory Denies cough PMFSH Medical History: Medical History (Last Reviewed 11/09/23 @ 20:26 by WILLIE English) Abscess in epidural space of cervical spine Acute lower gastrointestinal bleeding Anemia Aortic stenosis CAD (coronary artery disease) Chronic fatigue COVID-19 vaccine series completed Diabetes type 2, uncontrolled Diabetic nephropathy associated with type 2 diabetes mellitus Diabetic 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 associated with type 2 diabetes mellitus Difficulty walking DMII (diabetes mellitus, type 2) KOEHLER (dyspnea on exertion) Dyslipidemia Esophageal varices without bleeding Fracture of left humerus GERD (gastroesophageal reflux disease) History of prostate cancer HTN (hypertension) Hyperglycemia Hypertension IBS (irritable colon syndrome) Infective endocarditis Iron deficiency anemia care home (current) use of insulin On beta kayy at home ANUJA on CPAP Osteomyelitis of cervical spine Polyneuropathy Prostate cancer Spinal stenosis Streptococcal bacteremia Symptomatic anemia Varices of esophagus determined by endoscopy Family History: Family History (Last Reviewed 11/09/23 @ 20:26 by WILLIE English) Father CVD (cardiovascular disease) Past heart attack Mother CVD (cardiovascular disease) Brain cancer Heart problem Daughter Breast cancer Sister Breast cancer Son Alive and well Family/Other Myocardial infarction Liver cancer Surgical History: Surgical History (Last Reviewed 11/09/23 @ 20:26 by WILLIE English) H/O cataract extraction History of colonoscopy History of heart artery stent History of surgery History of surgery History of transurethral resection of prostate Hx of colonoscopy Hx of endoscopy Hx of esophagogastroduodenoscopy S/P infectious endocarditis Social History: Social History (Last Reviewed 11/09/23 @ 20:26 by WILLIE English) Living Situation History: Household Members: Significant Other Household Members Other:: Myesha Housing: House Are you a primary palliative care physician to a significant other at home: No Do you presently have visiting nurse or other home services: No Alcohol History Details: 1. How often do you have a drink containing alcohol?: a. Never Tobacco History: Patient Tobacco Use Status: Never used Tobacco e-Cigarette/Vaping Use: Never Used Second Hand Smoke Exposure: No Substance Use History: Use of substances other than those prescribed or required for medical reasons: No Domestic Abuse History: Have you been hit, kicked, punched, or otherwise hurt by someone within the past year? If so, by whom?: No Do you feel safe in your current relationship?: Yes Advance Directives: Advance Directives Date on File: 08/31/23 Homicidal Assessment: Do you have thoughts of harming others: None Do you have a plan to hurt others: No Plan Do you have the means to hurt others: No Nutrition Assessment: Recently lost weight without trying: No Occupation Assessmet: service: No Current occupational status: retired Home Medications and Allergies Home Medications ?Medication ?Instructions ?Recorded ?Confirmed ?Type cyanocobalamin (vitamin B-12) 500 1,000 mcg PO BEDTIME 12/29/22 11/09/23 History mcg tablet ferrous sulfate 325 mg (65 mg 325 mg PO DAILY 04/29/23 11/09/23 History iron) tablet,delayed release dulaglutide 0.75 mg/0.5 mL 0.75 mg subcut MO 11/09/23 11/09/23 History subcutaneous pen injector (Trulicity) atorvastatin 80 mg tablet 40 mg PO BEDTIME 11/18/23 11/18/23 History Allergies Allergy/AdvReac Type Severity Reaction Status Date / Time KARL Inhibitors Allergy Severe Angioedema Verified 11/04/23 11:56 dextran 40 [DEXTRAN 40] Allergy Intermediate tachycardia Verified 11/04/23 11:56 latex [LATEX] Allergy Mild BLISTERS Verified 11/04/23 11:56 lisinopril [From Zestril] Allergy Mild Unknown Verified 11/04/23 11:56 Iodinated Contrast Media Allergy Unknown UNKNOWN Verified 11/04/23 11:56 [CONTRAST,IV] Exam Vital signs: Vital Signs Temp 97.4 F 01/14/24 14:40 Pulse 62 01/14/24 14:40 Resp 18 01/14/24 14:40 BP 113/53 L 01/14/24 14:40 Pulse Ox 99 12/29/23 10:13 O2 Del Method Room Air 12/29/23 10:13 Weight 81.4 kg BMI result Body Mass Index 26.5 - Constitutional Present: no acute distress, average body habitus - Routine HEENT Exam Head: Present: normal inspection - Routine Neck Exam Absent: lymphadenopathy - Routine Respiratory Exam Present: CTAB - Routine Cardiovascular Exam Cardiovascular: Present: S1, S2 Data - Labs CBC & Chem 7: 01/18/24 10:37 11/04/23 10:01 Assessment and Plan Patient Active problem list reviewed?: Yes (1) Anemia Status: Chronic Assessment and plan: 1. A 78-year-old male with iron deficiency anemia. He had rectal bleeding secondary to radiation proctitis and cystitis. He is on ferrous sulfate twice a day. Negative for celiac antibodies. He had an allergic reaction to iron dextran. Developed upper GI bleeding related to esophageal varices. He has undergone banding. He has been on IV Ferrlecit intermittently. He also received blood transfusion. 2. Pancytopenia, leukopenia and thrombocytopenia, which has been chronic and stable. He has evidence of hepatosplenomegaly, portal hypertension, which is probably contributing to his cytopenias. MRI abdomen in December 2019 showed chronic cirrhosis, portal venous hypertension and splenomegaly. No evidence of HCC or other liver lesions. 3. Vitamin B12 deficiency, pernicious anemia. He is positive for intrinsic factor antibodies. He is on oral B12 supplementation and adequate blood levels. 3. Renal insufficiency. He is stage 3 kidney disease which could be contributing to his anemia. He will be started on Procrit. 4. Recent treatment 2021, for endocarditis as well as hematoma secondary to left humerus fracture which caused acute worsening of his anemia. He has received multiple units of blood transfusion. Transfuse 1 unit PRBC today. He has been getting blood 1-2 units every week. No evidence of what blood loss, blood indices. I discussed performing a bone marrow aspiration/biopsy to rule out underlying bone marrow problems such as myelodysplastic syndrome. He is agreeable to proceed with bone marrow biopsy. This is being scheduled with intervention Radiology under CT guidance. Follow-up in 1 months. - Time Spent With Patient Time Spent with Patient (in minutes): 20
[2024-01-18 11:11] VITALS: BP 106/53; PULSE 75; TEMP 36.2; O2SAT 99
[2024-01-18 11:42] LABS: Immature Retic Fraction 20.2 % (2.3-13.4); Retic HGB Equivalent 22.7 pg (30.0-35.0); Reticulocyte Percent 2.5 % (0.5-1.8); Reticulocytes Absolute 0.065 X10*6/uL (0.026-0.095)
[2024-01-18 12:20] VITALS: BP 106/53; PULSE 75; RESP 17; TEMP 36.2
[2024-01-18 12:38] VITALS: BP 115/56; PULSE 60; RESP 16; TEMP 36.1
[2024-01-18 13:52] VITALS: BP 115/61; PULSE 60; RESP 16; TEMP 36.1
--- NOTE | 2024-01-18 16:36 | MHC.HEMONC ---
Weekly labs: H/H 7.3/23.6- platelets 83. Dr. Nielsen notified- patient received two units of RBCs last week. Plan to transfuse 1 unit of RBCs today. Blood bank notified. Consent signed. #[id number] angio inserted to left wrist- positive blood return. Lungs clear throughout. Transfusion well tolerated with no signs of reaction. Follow up with Dr. Nielsen today- plan for bone marrow. Patient to return in one week for labs. Calender provided with next appts. Patient departed unit via wheelchair. Instructed patient to call department if any symptoms arise. IV removed- catheter intact. No redness or swelling noted to site.
--- NOTE | 2024-01-25 15:32 | MHC.HEMONC ---
Appointment cancelled. Pt admitted inpatient.
--- NOTE | 2024-02-05 09:22 | MHC.HEMONCMA ---
Per . pt spoke with provider today regards to his upcoming appt for CT biopsy bone marrow scheduled for 02/10/24 at 1:30pm. pt stated he will want to cancel it because he recently had surgery and will call back later to reschedule it once pt feels better.
--- NOTE | 2024-02-09 16:48 | HO.HEMONCSCH ---
Nurse called pt at home, after pt did not show up for scheduled procrit injection/lab draw today, no answer, nurse left detailed VM w/ CB#. Nurse then called pt on cell phone, pt answered, but connection was so poor communication was not possible, though nurse did attempt to tell pt he could come in for appt the next day. Nurse called cell # back, no answer, left another VM asking pt to come in the next morning, 02/09. Nurse rescheduled appt.
--- NOTE | 2024-02-10 17:01 | MHC.HEMONC ---
Nurse was able to reach pt by phone at home today, he said he was feeling fine, nurse asked pt if he could come to clinic to check CBC, but pt said he'd already been to see PCP Van Cisneros earlier today, Hgb steady at 9.4, so pt cancelled appt for this week, said he's also been taking lactulose for his excess ammonia/encephalopathy. Nurse asked if pt would come in next week, pt said, we'll see. Nurse updated Dr. Nielsen, will call pt back later this week to schedule next appt.
[2024-02-15 11:09] LABS: MANUAL DIFF FLAG NO
[2024-02-15 11:12] LABS: Basophils Absolute Auto 0.1 X10*3/uL (0.0-0.2); Basophils Percent Auto 1.2 % (0-2); Eosinophils Absolute Auto 0.2 X10*3/uL (0.0-0.4); Eosinophils Percent Auto 3.3 % (0-4); Hematocrit 23.6 % (42.0-52.0); Hemoglobin 7.3 g/dl (14.0-18.0); Imm Gran Abs Auto 0.04 X10*3/uL (0.00-0.03); Imm Gran Pct Auto 0.8 % (0.0-0.4); Lymphocytes Absolute Auto 0.5 X10*3/uL (1.2-4.9); Lymphocytes Percent Auto 9.6 % (20-40); Mean Corpuscular HGB Conc 30.9 g/dl (31.0-36.0); Mean Corpuscular Hemoglobin 28.4 pg (27.0-33.0); Mean Corpuscular Volume 91.8 fL (80.0-98.0); Mean Platelet Volume 11.4 fL (9.4-12.4); Monocytes Absolute Auto 0.4 X10*3/uL (0.1-1.2); Monocytes Percent Auto 9.1 % (2-11); Neutrophils Absolute Auto 3.7 x10*3/uL (2.0-8.3); Platelet Count 122 X10*3/uL (160-400); Red Blood Count 2.57 X10*6/uL (4.60-5.80); Red Cell Distribution Width 16.5 % (11.0-16.0); White Blood Count 4.8 X10*3/uL (4.8-10.8)
--- NOTE | 2024-02-15 17:13 | MHC.HEMONC ---
Pt was in today for lab draw, CBC and type and screen were both drawn, Hgb resulted 7.3, down from 9.4 only [address] Nielsen was made aware, stated pt should no longer receive procrit injections. Pt refused to stay for transfusion today, but agreed to return on Thu, 02/16. Dr. Nielsen to order x2 units PRBC, nurse booked transfusion appt for morning of 02/16, also notified Isabel at [facility]. Pt departed clinic.
[2024-02-17 10:13] VITALS: BP 118/58; PULSE 66; RESP 18; TEMP 36.3
[2024-02-17 10:29] VITALS: BP 103/51; PULSE 65; RESP 18; TEMP 36.3
[2024-02-17 12:01] VITALS: BP 112/56; PULSE 64; RESP 18; TEMP 36.3
[2024-02-17 12:16] VITALS: BP 112/56; PULSE 64; RESP 18; TEMP 36.3
[2024-02-17 12:38] VITALS: BP 118/56; PULSE 63; RESP 18; TEMP 36.1
[2024-02-17 14:19] VITALS: BP 129/63; PULSE 62; RESP 19; TEMP 36.3
--- NOTE | 2024-02-17 15:23 | MHC.HEMONC ---
Here for transfusion of 2 units prbc. Hgb on 02/14 was 7.3. Consent signed. IV started right forearm with good blood return noted. Pt feeling well. He does have bilat LLE edema. He states he tries to keep them elevated, but is difficult as he likes to do things around the house. He states they have been swollen for 2 weeks, and the visiting nurses are aware. Transfusion completed and tolerated well. VSS before and after treatment, and lungs clear throughout. IV removed and site without redness or swelling at the site. He is scheduled for labs Wednesday 02/21. Call to Grace in phlebotomy to resume home draws. Message left. Pt brought to front via wheelchair.
--- NOTE | 2024-02-22 12:03 | MHC.HEMONC ---
HGB 7.5 Pt called and will come in tomorrow at 0900 for transfusion.
[2024-02-23] VITALS (8 sets, daily range): BP systolic 112–125; BP diastolic 53–56; PULSE 69–80; RESP 18; TEMP 36.3–36.7; O2SAT 99; BMI 25.6
[2024-02-23 09:53] LABS: MANUAL DIFF FLAG NO
[2024-02-23 10:08] LABS: Basophils Percent Auto 0.9 % (0-2); Eosinophils Absolute Auto 0.2 X10*3/uL (0.0-0.4); Eosinophils Percent Auto 5.1 % (0-4); Hematocrit 23.3 % (42.0-52.0); Hemoglobin 7.6 g/dl (14.0-18.0); Imm Gran Abs Auto 0.02 X10*3/uL (0.00-0.03); Imm Gran Pct Auto 0.4 % (0.0-0.4); Lymphocytes Absolute Auto 0.5 X10*3/uL (1.2-4.9); Lymphocytes Percent Auto 10.3 % (20-40); Mean Corpuscular HGB Conc 32.6 g/dl (31.0-36.0); Mean Corpuscular Hemoglobin 29.3 pg (27.0-33.0); Mean Platelet Volume 11.3 fL (9.4-12.4); Monocytes Absolute Auto 0.5 X10*3/uL (0.1-1.2); Monocytes Percent Auto 11.1 % (2-11); Neutrophils Absolute Auto 3.4 x10*3/uL (2.0-8.3); Neutrophils Percent Auto 72.2 % (45-73); Red Blood Count 2.59 X10*6/uL (4.60-5.80); Red Cell Distribution Width 17.9 % (11.0-16.0); White Blood Count 4.7 X10*3/uL (4.8-10.8)
[2024-02-23 10:10] LABS: Platelet Count 87 X10*3/uL (160-400)
--- NOTE | 2024-02-23 10:46 | MHC.HEMONC ---
Addendum entered by Nellie Kerr RN 02/23/24 15:39: Pt was transfused 2 units of RBC. Lungs diminished bases, clear otherwise. No signs of reaction. Pt tolerated transfusion well. #22 angio removed. Catheter intact. Discharge summary given with transfusing reaction information and lab appointment next thursday. Pt departed via wheelchair. Original Note: Pt here for transfusion 2 units RBC. HGB 7.6. Pt offers no complaints. Has bruising noted on bilat arms and bandaid right elbow area. Telfa and coband applied to left elbow area for small skin tear pt came in with. #22 angio started in right lower arm. Pt type and screened. Waiting for blood to be ready.
--- NOTE | 2024-02-29 15:39 | MHC.HEMONC ---
Addendum entered by Derek Gresham RN 02/29/24 15:55: Nurse called pt again, pt answered cell, stated he's been inpatient at [facility] for past 6 days, now he's just trying to get some rest. He said his Hgb was 8.1, per his recollection, but he cannot be sure. Nurse updated Dr. Nielsen and Grace from phlebotomy, pt asked if he could have blood drawn tomorrow, Grace said she could attempt, but already gone for the day, so cannot promise that the schedule will allow, will f/u the following morning. Original Note: product manager Grace stated that pt's blood could not be drawn at home today, as he was apparently taken to [facility], no further info was made available. Nurse called pt on his listed cell #, he answered, but connection was poor, nurse to try pt again later. Dr. Nielsen was updated, this week's lab draw appt was rescheduled.
--- NOTE | 2024-03-01 11:55 | MHC.HEMONC ---
Pt had blood drawn at home by [facility] phlebotomy, Hgb/Hct resulted 9.0/28.0, and pt's Plt count improved as well, to 133. Dr. Nielsen was notified, no need to ask pt to come in for transfusion this week. Pt next due to have weekly home lab draw next 03/07/24.
--- NOTE | 2024-03-07 17:14 | MHC.HEMONC ---
Pt had blood drawn at home by [facility] phlebotomy, Hgb resulted 9.1, and pt's Plt count improved as well, no need to ask pt to come in for transfusion this week. Pt next due to have weekly home lab draw next 03/14/24
--- NOTE | 2024-03-21 12:37 | MHC.HEMONC ---
Addendum entered by Derek Gresham RN 03/21/24 16:34: Pt was scheduled for blood transfusion x2 units PRBCs tomorrow morning, 03/22/24 at 9am, said he will call if he can't get transportation. Nurse notified blood bank that pt will have type + screen upon his arrival in the morning, will also sign consent at that time. Original Note: critical hgb from home draw this am. HGB 6.6. Dr Nielsen to order blood tx. MATI Reed notified to schedule pt.
[2024-03-22] VITALS (8 sets, daily range): BP systolic 99–110; BP diastolic 49–53; PULSE 61–84; RESP 18–19; TEMP 36.4–36.6; O2SAT 99; BMI 24.5
[2024-03-22 09:12] LABS: MANUAL DIFF FLAG NO
[2024-03-22 09:21] LABS: Basophils Percent Auto 0.5 % (0-2); Eosinophils Absolute Auto 0.2 X10*3/uL (0.0-0.4); Hematocrit 21.3 % (42.0-52.0); Imm Gran Abs Auto 0.06 X10*3/uL (0.00-0.03); Lymphocytes Absolute Auto 0.6 X10*3/uL (1.2-4.9); Lymphocytes Percent Auto 9.1 % (20-40); Mean Corpuscular HGB Conc 31.5 g/dl (31.0-36.0); Mean Corpuscular Volume 89.1 fL (80.0-98.0); Mean Platelet Volume 10.8 fL (9.4-12.4); Monocytes Absolute Auto 0.8 X10*3/uL (0.1-1.2); Monocytes Percent Auto 12.3 % (2-11); Neutrophils Absolute Auto 4.7 x10*3/uL (2.0-8.3); Neutrophils Percent Auto 74.1 % (45-73); Platelet Count 114 X10*3/uL (160-400); Red Blood Count 2.39 X10*6/uL (4.60-5.80); Red Cell Distribution Width 16.8 % (11.0-16.0); White Blood Count 6.3 X10*3/uL (4.8-10.8)
[2024-03-22 09:24] LABS: Hemoglobin 6.7 g/dl (14.0-18.0)
--- NOTE | 2024-03-22 13:21 | MHC.HEMONC ---
Pt here for blood transfusion. H & H 6.7/21.3/platelets 114. Consent for blood transfusion obtained. #22 angio inserted in right AC with blood return noted. Vital signs as noted on flow-sheet blood transfusion record. 2 units RBC's given as ordered over 200ml hour per Dr Nielsen order. Vital signs as noted between and after blood transfusion. Peripheral IV removed-o edema or redness at site after removal of IV. Discharge packet given with next appointment scheduled. Escorted to front of hospital via wheelchair.
--- NOTE | 2024-03-28 16:18 | MHC.HEMONC ---
Pt had blood drawn at home by [facility] home draw, Hgb resulted 8.0 today, Dr. Nielsen was notified, to continue to monitor w/ weekly home draws, no intervention needed this week.
[2024-04-05] VITALS (7 sets, daily range): BP systolic 96–104; BP diastolic 46–51; PULSE 60–68; RESP 18; TEMP 36.3–36.6; O2SAT 100
--- NOTE | 2024-04-05 15:26 | MHC.HEMONC ---
Pt here for blood transfusion H & H 6.5/21.8/[id number]. Blood transfusion consent obtained. Vital signs as noted. Dr Nielsen notified of BP 96/49-Okay to receive transfusion today per Dr Nielsen. #22 angio inserted in right AC with blood return noted. 2 units RBC's transfused as ordered-vital signs as noted. Peripheral IV removed-no edema or redness at site after removal of IV. Discharge packet given with nex appointment for lab draw scheduled. Escorted to front of hospital via
--- NOTE | 2024-04-11 14:04 | MHC.HEMONC ---
HGB 6.8-reported to Dr Nielsen. Plan for 2 units RBC's tomorrow. Pt called and notified to come for a transfusion tomorrow at 0900.
[2024-04-12] VITALS (7 sets, daily range): BP systolic 95–106; BP diastolic 46–60; PULSE 65–68; RESP 17–18; TEMP 36.4–36.6; O2SAT 98; BMI 27.9
--- NOTE | 2024-04-12 15:59 | MHC.HEMONC ---
Pt here for Blood transfusion RBC 2units. # 22 angio started in LLA. good blood return. Lungs clear dim bases. 2 units transfused. Pt tolerated transfusions well. IV removed catheter intact. Calendar given with weekly home lab appointments. Pt departed via wheelchair. [facility] transportation set up for transfer to home.
--- NOTE | 2024-04-25 16:07 | MHC.HEMONC ---
Nurse connected edi/ Grace at phlebotomy, as pt did not appear to have home labs drawn today. Grace said that pt was believed to be still at [facility], since [place] [facility] [place]. Nurse called pt, no answer, left detailed VM requesting CB to notify us if he has returned home. Nurse called [facility], who confirmed pt was d/c to home on 04/23/24. Nurse notified Grace at phlebotomy to please attempt to draw pt's labs at home the following day. Nurse rescheduled home lab draw appt for the following day.
--- NOTE | 2024-04-26 17:20 | MHC.HEMONC ---
Per Grace at phlebotomy, pt's picked up when she called to confirm home blood draw, said pt was not available for home draw today. Unfortunately, home draw staff no longer have availability to draw pt's blood at home. Nurse updated Dr. Nielsen. Nurse called pt on home # as well as cell #, no answer on either, left detailed VMs on both lines, informed him that, based on his Hgb of 8.2 when he was d/c'd to [facility] last week on 04/18, it is highly possible he needs a blood transfusion, and the home draw staff won't be able to return to draw his blood at home until 05/02/24, next Thursday. Nurse asked pt to CB and please make appt for lab draw tomorrow morning, 04/27, as early as possible, to allow for transfusion of possibly x2 units PRBCs, left CB #.
[2024-04-29 09:13] LABS: MANUAL DIFF FLAG NO
[2024-04-29 09:21] LABS: Basophils Percent Auto 0.8 % (0-2); Eosinophils Absolute Auto 0.1 X10*3/uL (0.0-0.4); Eosinophils Percent Auto 2.3 % (0-4); Hematocrit 23.7 % (42.0-52.0); Hemoglobin 7.2 g/dl (14.0-18.0); Imm Gran Abs Auto 0.04 X10*3/uL (0.00-0.03); Imm Gran Pct Auto 0.8 % (0.0-0.4); Lymphocytes Absolute Auto 0.3 X10*3/uL (1.2-4.9); Lymphocytes Percent Auto 6.8 % (20-40); Mean Corpuscular HGB Conc 30.4 g/dl (31.0-36.0); Mean Corpuscular Hemoglobin 26.7 pg (27.0-33.0); Mean Corpuscular Volume 87.8 fL (80.0-98.0); Mean Platelet Volume 10.4 fL (9.4-12.4); Monocytes Absolute Auto 0.6 X10*3/uL (0.1-1.2); Monocytes Percent Auto 12.8 % (2-11); Neutrophils Absolute Auto 3.7 x10*3/uL (2.0-8.3); Neutrophils Percent Auto 76.5 % (45-73); Platelet Count 153 X10*3/uL (160-400); Red Cell Distribution Width 15.7 % (11.0-16.0); White Blood Count 4.8 X10*3/uL (4.8-10.8)
[2024-04-29 10:57] VITALS: BP 93/57; PULSE 76; RESP 18; TEMP 36.4
[2024-04-29 11:14] VITALS: BP 101/51; PULSE 69; RESP 17; TEMP 36.4
[2024-04-29 12:41] VITALS: BP 96/46; PULSE 71; RESP 17; TEMP 36.8
[2024-04-29 12:57] VITALS: BP 96/46; PULSE 71; RESP 17; TEMP 36.8
[2024-04-29 13:12] VITALS: BP 98/54; PULSE 76; RESP 18; TEMP 36.6
[2024-04-29 14:55] VITALS: BP 103/51; PULSE 70; RESP 18; TEMP 35.9
--- NOTE | 2024-04-29 17:30 | MHC.HEMONC ---
Pt arrived to clinic unexpectedly via w/c today. This nurse had left multiple VMs earlier in the week asking for a CB to schedule a blood draw to assess his need for possible blood transfusion, but no CB was ever received. Driver Education Instructor Eliza approved for pt to have lab draw appt. Pt's CBC was drawn/reviewed, including Type and Screen, resulted w/ Hgb of 7.2. Nurse updated Dr. Nielsen.Pt signed consent to transfuse w/ Dr. Nielsen, blood bank arrived to band pt. This nurse placed 22g PIV to pt's R hand w/ positive blood return. Nurse transfused x2 units PRBC, over which time VS remained stable and LS remained CTA. Pt's PIV was flushed and removed. Pt was given d/c packet, next to have home labs drawn on 05/02. Pt appeared lethargic throughout the day, sleeping on and off, and stumbling when making transfers in and out of chairs/wheelchairs, and though pt said he felt more energy post-transfusion, pt still required supervision for all transfers. Pt was ambulating w/ a cane, but would benefit from use of a walker while in this clinic. Nurse escorted pt to lobby via w/c, where valets assisted him inside of his vehicle.
--- NOTE | 2024-05-02 14:02 | MHC.HEMONC ---
Pt had blood drawn at home by [facility], Hgb resulted 8.6, and Dr. Nielsen was notified, no need to ask pt to come in for transfusion this week. Pt next due to have weekly home lab draw next 05/09/24.
--- NOTE | 2024-05-23 17:05 | MHC.HEMONC ---
Pt called twice to schedule appointment for blood transfusion for tomorrow 05/24/24-no answer either time-message left to call department to scheduled blood transfusion appointment
[2024-05-24] VITALS (8 sets, daily range): BP systolic 95–122; BP diastolic 48–57; PULSE 65–77; RESP 18; TEMP 36.3–37.1; O2SAT 98–99; BMI 25.9
--- NOTE | 2024-05-24 12:30 | PM.HEMONCPN ---
Medical Summary - Medical Summary Date of Service: 05/24/24 Chief complaint: Follow-up Primary Care Provider: Roberto Carlos Cisneros PA-C Medical Summary: Diagnosis: Iron deficiency anemia Mr. Lopes has an extensive medical history, with the frequent hospitalizations in the last 2 years. He has a long-standing history of type 2 diabetes mellitus, coronary artery disease. In August 2012, he was diagnosed with prostate cancer, underwent laser surgery, followed by radiation therapy, which he completed in April 2014. He is currently on Trelstar (LHRH agonist therapy) every 6 months under the care of Dr. Dudley. He was admitted in June for rectal bleeding and anemia. This was diagnosed as radiation proctitis. He has a history of blood transfusion in 2012 when he was admitted for Staphylococcus aureus sepsis and anemia. He was told of leukopenia for many years and reviewing [employer], his white count has ranged from 3 to 4 thousand dating back to 2003 with normal counts in 2005. Since 2006 or 2007, it has declined and more recently since 2012, it has stayed under 5000 consistently. He has developed thrombocytopenia since 2012. Prior to that, platelet counts have been normal. His hemoglobin has always been low; back in 2013 it was in the 13 g/dL range but since 2005 it has gone up and down ranging between been 10 to 11 g/dL and in 2013 it has been below 10 g/dL. He does have a history of excess alcohol consumption for many years and he quit in 2013. Ultrasound of the abdomen in March 2014 revealed enlarged liver, showing diffuse liver disease and splenomegaly with spleen size of 19 cm. Hematology consultation on August 23, 2014 revealed anemia with a hemoglobin of 9.4 g/dL, white count of 2.3, platelets of 103,000. Iron studies showed a ferritin of 8 with iron saturation of 20%. LDH normal. LFTs normal. Vitamin B12 and folate levels normal. Beta-2 microglobulin slightly elevated at 3.05. Serum protein electrophoresis revealed monoclonal protein, which was too small to quantitate. Immunoglobulin levels were normal. Rheumatoid factor less than 15 in the past. Repeat ultrasound of abdomen performed September 11, 2014 showed hepatosplenomegaly similar to previous exam. Dilated portal vein suggestive of portal hypertension. Thickened, edematous gallbladder similar to March 2014 exam. The patient was admitted again in May 2015 with symptoms of painful hematuria. He developed significant anemia with a hemoglobin dropping to 7.7 g/dL for which he received 2 to 3 units of blood transfusion. Interval History Interval history: Patient is here in follow-up. He is doing about the same. He feels quite weak and tired overall. He has been receiving blood transfusions intermittently. He is getting blood drawn once a week at home. He continues to take care of his . He denies any hematochezia, heartburn reflux symptoms. He was hospitalized multiple times in the recent months. Review of Systems - Constitutional Reports malaise [facility] Medical History: Medical History (Last Reviewed 05/18/24 @ 07:44 by Roberto Carlos Cisneros PA-C) Abscess in epidural space of cervical spine Acute lower gastrointestinal bleeding Anemia Aortic stenosis CAD (coronary artery disease) Chronic fatigue Cognitive impairment COVID-19 vaccine series completed Diabetes type 2, uncontrolled Diabetic nephropathy associated with type 2 diabetes mellitus Diabetic 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 associated with type 2 diabetes mellitus Difficulty walking DMII (diabetes mellitus, type 2) KOEHLER (dyspnea on exertion) Dyslipidemia Esophageal varices without bleeding Fracture of left humerus GERD (gastroesophageal reflux disease) History of prostate cancer HTN (hypertension) Hyperglycemia Hypertension IBS (irritable colon syndrome) Infective endocarditis Iron deficiency anemia detention (current) use of insulin On beta kayy at home ANUJA on CPAP Osteomyelitis of cervical spine Polyneuropathy Prostate cancer Spinal stenosis Streptococcal bacteremia Symptomatic anemia Varices of esophagus determined by endoscopy Family History: Family History (Last Reviewed 05/18/24 @ 07:44 by Roberto Carlos Cisneros PA-C) Father CVD (cardiovascular disease) Past heart attack Mother CVD (cardiovascular disease) Brain cancer Heart problem Daughter Breast cancer Sister Breast cancer Son Alive and well Family/Other Myocardial infarction Liver cancer Surgical History: Surgical History (Last Reviewed 05/18/24 @ 07:44 by Roberto Carlos Cisneros PA-C) H/O cataract extraction History of colonoscopy History of heart artery stent History of surgery History of surgery History of transurethral resection of prostate Hx of colonoscopy Hx of endoscopy Hx of esophagogastroduodenoscopy S/P infectious endocarditis Social History: Social History (Last Reviewed 05/18/24 @ 07:44 by Roberto Carlos Cisneros PA-C) Living Situation History: Household Members: Spouse Household Members Other:: Myesha Housing: House Are you a primary direct care counselor to a significant other at home: No Do you presently have visiting nurse or other home services: Yes Alcohol History Details: 1. How often do you have a drink containing alcohol?: a. Never Tobacco History: Patient Tobacco Use Status: Never used Tobacco e-Cigarette/Vaping Use: Never Used Second Hand Smoke Exposure: No Substance Use History: Use of substances other than those prescribed or required for medical reasons: No Domestic Abuse History: Have you been hit, kicked, punched, or otherwise hurt by someone within the past year? If so, by whom?: No Do you feel safe in your current relationship?: Yes Advance Directives: Advance Directives Date on File: 08/31/23 Homicidal Assessment: Do you have thoughts of harming others: None Do you have a plan to hurt others: No Plan Do you have the means to hurt others: No Nutrition Assessment: Recently lost weight without trying: No 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 Current occupational status: retired Home Medications and Allergies Home Medications ?Medication ?Instructions ?Recorded ?Confirmed ?Type bumetanide 1 mg tablet 1 mg PO DAILY 04/14/24 05/17/24 History lactulose 10 gram/15 mL oral 30 ml PO BID 04/14/24 05/17/24 History solution midodrine 10 mg tablet 10 mg PO TID hypotension 05/24/24 05/24/24 History Allergies Allergy/AdvReac Type Severity Reaction Status Date / Time KARL Inhibitors Allergy Severe Angioedema Verified 05/17/24 14:27 dextran 40 [DEXTRAN 40] Allergy Intermediate tachycardia Verified 05/17/24 14:27 latex [LATEX] Allergy Mild BLISTERS Verified 05/17/24 14:27 lisinopril [From Zestril] Allergy Mild Unknown Verified 05/17/24 14:27 Iodinated Contrast Media Allergy Unknown UNKNOWN Verified 05/17/24 14:27 [CONTRAST,IV] Exam Vital signs: Vital Signs Temp 98.2 F 05/24/24 11:14 Pulse 68 05/24/24 11:14 Resp 18 05/24/24 11:14 BP 95/48 L 05/24/24 11:14 Pulse Ox 99 05/24/24 11:14 O2 Del Method Room Air 05/24/24 11:14 Intake & Output 05/23/24 05/24/24 05/24/24 18:59 06:59 18:59 Intake Total 0 / 0 Balance 0 / 0 Intake: Intake (Blood Product) Amount 0 / 0 Red Blood Cells (E0336) Unit 0 / 0 [id number] Other: Weight 79.6 kg Gem Weight in Grams 42752 Weight 79.6 kg BMI result Body Mass Index 25.9 - Constitutional Present: no acute distress, average body habitus - Routine HEENT Exam Head: Present: normal inspection - Routine Neck Exam Absent: lymphadenopathy - Routine Respiratory Exam Present: CTAB - Routine Cardiovascular Exam Cardiovascular: Present: S1, S2 Data - Labs CBC & Chem 7: 04/29/24 09:10 11/04/23 10:01 Assessment and Plan Patient Active problem list reviewed?: Yes (1) Anemia Status: Chronic Assessment and plan: 1. A 79-year-old male with iron deficiency anemia. He had rectal bleeding secondary to radiation proctitis and cystitis. He is on ferrous sulfate twice a day. Negative for celiac antibodies. He had an allergic reaction to iron dextran. Developed upper GI bleeding related to esophageal varices. He has undergone banding. He has been on IV Ferrlecit intermittently. He is transfusion dependent. 2. Pancytopenia, leukopenia and thrombocytopenia, which has been chronic and stable. He has evidence of hepatosplenomegaly, portal hypertension, which is probably contributing to his cytopenias. MRI abdomen in December 2019 showed chronic cirrhosis, portal venous hypertension and splenomegaly. No evidence of HCC or other liver lesions. He has refused bone marrow biopsy on multiple occasions. 3. Vitamin B12 deficiency, pernicious anemia. He is positive for intrinsic factor antibodies. He is on oral B12 supplementation and adequate blood levels. 3. Renal insufficiency. He is stage 3 kidney disease which could be contributing to his anemia. He has been receiving Procrit intermittently. 4. Recent treatment 2021, for endocarditis as well as hematoma secondary to left humerus fracture which caused acute worsening of his anemia. He has received multiple units of blood transfusion. He is receiving blood transfusion almost on a weekly basis. Follow-up in 3 months. - Time Spent With Patient Time Spent with Patient (in minutes): 15 Additional Coding: - Additional E/M codes Complex E/M visit Add On: CPT G2211
--- NOTE | 2024-05-24 15:11 | MHC.HEMONC ---
Pt here for blood transfusion. Home Labs drawn yesterday H & H 6.01/02-Plan for 2 units of RBC's. Consent for blood transfusion obtained. # 22 angio inserted in left hand with blood return noted. Vital signs as noted. 2 units RBC's transfused as ordered, after first 15 minutes transfusion ran at 200ml hour per Dr Nielsen verbal order. Vital signs as noted between transfusions and end of transfusion on blood transfusion record. Peripheral IV removed-no edema or redness at site after removal of IV. Discharge packet given. Discharged to front of hospital via wheelchair.
--- NOTE | 2024-05-31 13:20 | MHC.HEMONC ---
Addendum entered by Nellie Kerr RN 05/31/24 13:24: blood bank notified. Original Note: HGB 7.2 Pt to get [address] Bennett. Pt notified and booked for tomorrow at 9am.
[2024-06-01] VITALS (7 sets, daily range): BP systolic 95–124; BP diastolic 49–60; PULSE 60–67; RESP 17–18; TEMP 35.7–36.4; O2SAT 99; BMI 25.9
[2024-06-01 09:08] LABS: MANUAL DIFF FLAG NO
[2024-06-01 09:14] LABS: Basophils Percent Auto 1.1 % (0-2); Eosinophils Absolute Auto 0.1 X10*3/uL (0.0-0.4); Hematocrit 22.7 % (42.0-52.0); Imm Gran Abs Auto 0.02 X10*3/uL (0.00-0.03); Imm Gran Pct Auto 0.6 % (0.0-0.4); Lymphocytes Absolute Auto 0.4 X10*3/uL (1.2-4.9); Lymphocytes Percent Auto 10.3 % (20-40); Mean Corpuscular HGB Conc 30.8 g/dl (31.0-36.0); Mean Corpuscular Hemoglobin 27.3 pg (27.0-33.0); Mean Corpuscular Volume 88.7 fL (80.0-98.0); Mean Platelet Volume 11.3 fL (9.4-12.4); Monocytes Absolute Auto 0.5 X10*3/uL (0.1-1.2); Neutrophils Absolute Auto 2.5 x10*3/uL (2.0-8.3); Red Blood Count 2.56 X10*6/uL (4.60-5.80); Red Cell Distribution Width 17.3 % (11.0-16.0); White Blood Count 3.5 X10*3/uL (4.8-10.8)
[2024-06-01 09:23] LABS: Platelet Count 96 X10*3/uL (160-400)
--- NOTE | 2024-06-01 15:57 | MHC.HEMONC ---
Pt's CBC was drawn by [facility] home draw on , Hgb resulted 7.7, pt was ordered by Dr. Bennett to receive transfusion of x2 units PRBC, arrived today for transfusion. Pt had repeat CBC, as well as Type and Screen, pt was banded w/ blood band, resulted w/ Hgb of 7.0. Nurse updated Dr. Bennett. Pt signed consent to transfuse w/ Dr. Bennett, blood bank arrived to band pt. This nurse placed 22g PIV to pt's R hand w/ positive blood return. Nurse transfused x2 units PRBC, over which time VS remained stable and LS remained CTA. Pt's PIV was flushed and removed. Pt was given d/c packet, next to have home labs drawn on 06/06/24. Pt was escorted to lobby via w/c, where valets assisted him inside of his vehicle.
--- NOTE | 2024-06-06 15:25 | MHC.HEMONC ---
Pt's CBC resulted from home lab draw, Hgb of 7.3, less than 1 week after receiving x2 units blood transfusion. Dr. Bennett was updated, pt was ordered pt to receive x2 units PRBC. Nurse called pt at home, he was booked for transfusion tomorrow morning at 09:00. Nurse notified Isabel at blood bank, pt will have type + screen when he arrives.
[2024-06-07] VITALS (7 sets, daily range): BP systolic 116–125; BP diastolic 53–56; PULSE 70–77; RESP 17–18; TEMP 35.8–36.6; O2SAT 98
[2024-06-07 09:04] LABS: MANUAL DIFF FLAG NO
[2024-06-07 09:50] LABS: Basophils Percent Auto 0.9 % (0-2); Eosinophils Absolute Auto 0.1 X10*3/uL (0.0-0.4); Eosinophils Percent Auto 2.7 % (0-4); Hematocrit 23.7 % (42.0-52.0); Hemoglobin 7.2 g/dl (14.0-18.0); Imm Gran Abs Auto 0.02 X10*3/uL (0.00-0.03); Imm Gran Pct Auto 0.6 % (0.0-0.4); Lymphocytes Absolute Auto 0.3 X10*3/uL (1.2-4.9); Lymphocytes Percent Auto 10.1 % (20-40); Mean Corpuscular HGB Conc 30.4 g/dl (31.0-36.0); Mean Corpuscular Hemoglobin 27.3 pg (27.0-33.0); Mean Corpuscular Volume 89.8 fL (80.0-98.0); Mean Platelet Volume 10.9 fL (9.4-12.4); Monocytes Absolute Auto 0.4 X10*3/uL (0.1-1.2); Neutrophils Absolute Auto 2.5 x10*3/uL (2.0-8.3); Neutrophils Percent Auto 72.7 % (45-73); Platelet Count 82 X10*3/uL (160-400); Red Blood Count 2.64 X10*6/uL (4.60-5.80); White Blood Count 3.4 X10*3/uL (4.8-10.8)
--- NOTE | 2024-06-07 12:51 | MHC.HEMONC ---
Pt here for transfusion 2 units RBC. Pt offers no complaints. #22 started LLA, good blood return. 2 units RBC transfused. Lungs clear. Pt tolerated well. IV removed catheter intact. Summary given and pt wheeled to main entrance.
--- NOTE | 2024-06-20 16:08 | MHC.HEMONC ---
Triage call-pt called stating he will not be in a day before his blood transfusion for type and screen. States he will be in on Thursday this week for type and screen and his blood transfusion
[2024-06-22] VITALS (7 sets, daily range): BP systolic 123–166; BP diastolic 58–72; PULSE 66–82; RESP 17–18; TEMP 36.5–36.8; O2SAT 94; BMI 25.9
[2024-06-22 09:27] LABS: MANUAL DIFF FLAG NO
[2024-06-22 09:35] LABS: Basophils Percent Auto 0.8 % (0-2); Eosinophils Absolute Auto 0.1 X10*3/uL (0.0-0.4); Eosinophils Percent Auto 2.8 % (0-4); Imm Gran Abs Auto 0.02 X10*3/uL (0.00-0.03); Imm Gran Pct Auto 0.5 % (0.0-0.4); Lymphocytes Absolute Auto 0.4 X10*3/uL (1.2-4.9); Lymphocytes Percent Auto 9.5 % (20-40); Mean Corpuscular HGB Conc 30.8 g/dl (31.0-36.0); Mean Corpuscular Hemoglobin 27.7 pg (27.0-33.0); Mean Platelet Volume 10.9 fL (9.4-12.4); Monocytes Absolute Auto 0.5 X10*3/uL (0.1-1.2); Neutrophils Percent Auto 74.4 % (45-73); Platelet Count 122 X10*3/uL (160-400); Red Blood Count 2.89 X10*6/uL (4.60-5.80); Red Cell Distribution Width 17.4 % (11.0-16.0)
--- NOTE | 2024-06-22 17:30 | MHC.HEMONC ---
Pt's CBC was drawn by [facility] home draw on 06/20/24, Hgb resulted 7.5, pt was ordered by Dr. Nielsen to receive transfusion of x2 units PRBC, arrived today for transfusion. Pt had Type and Screen drawn. Pt signed consent to transfuse w/ Dr. Nielsen, blood bank arrived to band pt. This nurse placed 22g PIV to pt's R FA w/ positive blood return. Nurse transfused x2 units PRBC, over which time VS remained stable and LS remained CTA. Pt's PIV was flushed and removed. Pt was given d/c packet, next to have home labs drawn in 1 week. Pt was escorted to lobby via w/c, where valets assisted him inside of his vehicle.
--- NOTE | 2024-06-23 16:39 | MHC.HEMONC ---
Telephone call to pt regarding his home draw scheduled for 06/28. He left message here that he needs to change the appointment due to an appointment. Message left for pt.
--- NOTE | 2024-06-28 10:32 | MHC.HEMONC ---
Pt had home lab draw yesterday. H & H 8.7/28.4/platelets 109-pt called and notified he did not need a blood transfusion today. Pt states he doesn't feel well today, having trouble moving his legs-resting now. States [facility] is with him now. Instructed to call ambulance if needed. Verbalizes understanding of information given
--- NOTE | 2024-07-04 17:28 | MHC.HEMONC ---
Nurse reviewed pt's CBC result from home draw this morning, Hgb resulted 7.7, but when this nurse called pt to schedule him for blood transfusion, pt said he can barely walk for the past week and a half, said he had no trauma or fall, but over a week ago, his LLE, from his knee to his hip just gave out on him, and he couldn't put any weight on it, and that he had refused to go to the hospital or call an ambulance despite his family's pleading, said that his mobility and strength has since improved, he does have intermittent [employer] services at home. In spite of all this, pt said he actually feels good, not tired, but said he couldn't drive to clinic. When nurse offered to arrange [facility] shuttle to pick him up, pt said he could not manage stairs to get up into the shuttle. Pt declined to come for blood transfusion this week, plans to have his blood drawn at home again next Thu, 07/11, at which time he expects to be strong enough to perhaps travel into clinic. Dr. Nielsen was informed of the situation.
--- NOTE | 2024-07-11 14:41 | MHC.HEMONC ---
Pt had home lab draw today. H & H 7.5/24.6/platelets 130-results reported to Dr Bennett (covering for DR Nielsen) plan for 2 units RBC's-pt called states he will try to get a ride into hospital for tomorrow for blood transfusion. Pt states he will call us back with ride update when he has more information
[2024-07-12] VITALS (7 sets, daily range): BP systolic 103–135; BP diastolic 51–65; PULSE 65–82; RESP 17–18; TEMP 36.3–37.1; O2SAT 96
--- NOTE | 2024-07-12 10:02 | MHC.HEMONC ---
Pt here for 2 units RBC. Reports feeling well. Type and screen drawn. #20 started LLA started, good blood return.
--- NOTE | 2024-07-18 15:39 | MHC.HEMONC ---
Pt had blood drawn at home by [facility] phlebotomy, Hgb resulted 8.4 today, and Dr. Nielsen was notified, no need to ask pt to come in for transfusion this week. Pt next due to have weekly home lab draw next 07/25/24.
[2024-07-25 09:47] LABS: MANUAL DIFF FLAG NO
[2024-07-25 10:13] LABS: Basophils Percent Auto 0.9 % (0-2); Eosinophils Absolute Auto 0.2 X10*3/uL (0.0-0.4); Eosinophils Percent Auto 4.5 % (0-4); Hematocrit 25.5 % (42.0-52.0); Imm Gran Abs Auto 0.01 X10*3/uL (0.00-0.03); Imm Gran Pct Auto 0.3 % (0.0-0.4); Lymphocytes Absolute Auto 0.4 X10*3/uL (1.2-4.9); Mean Corpuscular HGB Conc 31.4 g/dl (31.0-36.0); Mean Corpuscular Hemoglobin 28.1 pg (27.0-33.0); Mean Corpuscular Volume 89.5 fL (80.0-98.0); Mean Platelet Volume 10.6 fL (9.4-12.4); Monocytes Absolute Auto 0.5 X10*3/uL (0.1-1.2); Monocytes Percent Auto 14.5 % (2-11); Neutrophils Absolute Auto 2.3 x10*3/uL (2.0-8.3); Neutrophils Percent Auto 68.8 % (45-73); Platelet Count 100 X10*3/uL (160-400); Red Blood Count 2.85 X10*6/uL (4.60-5.80); Red Cell Distribution Width 16.4 % (11.0-16.0); White Blood Count 3.4 X10*3/uL (4.8-10.8)
--- NOTE | 2024-07-25 10:37 | MHC.HEMONC ---
Triage- Lab home draw jesse, is weekly on Mondays at after 10am per Grace(Lab shipyard painting supervisor)
[2024-07-25 10:51] VITALS: BP 121/56; PULSE 69; RESP 18; TEMP 36.3; O2SAT 96
[2024-07-25 11:34] VITALS: BP 121/56; PULSE 69; RESP 18; TEMP 36.3
[2024-07-25 11:50] VITALS: BP 118/55; PULSE 66; RESP 17; TEMP 37
[2024-07-25 13:10] VITALS: BP 135/59; PULSE 72; RESP 18; TEMP 36.5
--- NOTE | 2024-07-25 17:06 | MHC.HEMONC ---
Pt arrived unexpectedly arrived to clinic this morning via w/c, when he was only scheduled to have blood drawn at home by [facility] [place] [facility], but pt was checked in, had labs drawn/reviewed, including type + screen, Hgb resulted 8.0, pt was ordered by Dr. Nielsen to receive transfusion of x1 unit PRBC. Pt signed consent to transfuse w/ Dr. Nielsen, blood bank arrived to band pt. Nurse Dahlia placed 22g PIV to pt's L FA w/ positive blood return. Nurse transfused x1 unit PRBC, over which time VS remained stable and LS remained CTA. Pt's PIV was flushed and removed. Pt was given d/c packet, next to have home labs drawn in 1 week. Pt was escorted to lobby via w/c, where his picked him up. Pt also requested, in the future, that nurses call him w/ his blood results, even when he doesn't need a transfusion.
--- NOTE | 2024-08-01 16:15 | MHC.HEMONC ---
Weekly labs. H/H 7.6/24.7. Dr Nielsen notified. Order for blood transfusion 2 units RBCs. Blood bank notified.
[2024-08-02] VITALS (7 sets, daily range): BP systolic 91–126; BP diastolic 46–56; PULSE 62–70; RESP 18; TEMP 36.5–36.6; O2SAT 95
[2024-08-02 09:44] LABS: MANUAL DIFF FLAG NO
[2024-08-02 09:49] LABS: Basophils Absolute Auto 0.1 X10*3/uL (0.0-0.2); Basophils Percent Auto 1.3 % (0-2); Eosinophils Absolute Auto 0.2 X10*3/uL (0.0-0.4); Eosinophils Percent Auto 5.2 % (0-4); Hematocrit 24.1 % (42.0-52.0); Hemoglobin 7.5 g/dl (14.0-18.0); Imm Gran Abs Auto 0.02 X10*3/uL (0.00-0.03); Imm Gran Pct Auto 0.5 % (0.0-0.4); Lymphocytes Absolute Auto 0.4 X10*3/uL (1.2-4.9); Lymphocytes Percent Auto 10.6 % (20-40); Mean Corpuscular HGB Conc 31.1 g/dl (31.0-36.0); Mean Corpuscular Volume 89.9 fL (80.0-98.0); Mean Platelet Volume 10.1 fL (9.4-12.4); Monocytes Absolute Auto 0.4 X10*3/uL (0.1-1.2); Monocytes Percent Auto 11.4 % (2-11); Neutrophils Absolute Auto 2.8 x10*3/uL (2.0-8.3); Platelet Count 94 X10*3/uL (160-400); Red Blood Count 2.68 X10*6/uL (4.60-5.80); Red Cell Distribution Width 16.3 % (11.0-16.0); White Blood Count 3.9 X10*3/uL (4.8-10.8)
--- NOTE | 2024-08-02 14:41 | MHC.HEMONC ---
Pt here for blood transfusion. Home Labs drawn yesterday H & H 7.6/24.7-Plan for 2 units of RBC's. Consent for blood transfusion obtained. # 22 angio inserted in right hand with blood return noted. Vital signs as noted. 2 units RBC's transfused as ordered, after first 15 minutes transfusion ran at 200ml hour per Dr Nielsen verbal order. Vital signs as noted between transfusions and end of transfusion on blood transfusion record. Peripheral IV removed-no edema or redness at site after removal of IV. Discharge packet given. Discharged to front of hospital via wheelchair. 9
--- NOTE | 2024-08-08 12:30 | MHC.HEMONC ---
Pt had labs drawn at home by hotel or motel room service supervisor, Hgb resulted 7.0, Dr. Nielsen was notified, pt ordered to receive x1 unit PRBC tomorrow morning, 08/09, at 9am. Nurse Villagomez booked transfusion appt via phone w/ pt, Rafael at blood bank was notified, pt to have type + screen done upon arrival.
--- NOTE | 2024-08-09 09:44 | PM.HEMONCPN ---
Medical Summary - Medical Summary Date of Service: 08/09/24 Chief complaint: Follow-up Primary Care Provider: Roberto Carlos Cisneros PA-C Medical Summary: Diagnosis: Iron deficiency anemia Mr. Lopes has an extensive medical history, with the frequent hospitalizations in the last 2 years. He has a long-standing history of type 2 diabetes mellitus, coronary artery disease. In August 2012, he was diagnosed with prostate cancer, underwent laser surgery, followed by radiation therapy, which he completed in April 2014. He is currently on Trelstar (LHRH agonist therapy) every 6 months under the care of Dr. Dudley. He was admitted in June for rectal bleeding and anemia. This was diagnosed as radiation proctitis. He has a history of blood transfusion in 2012 when he was admitted for Staphylococcus aureus sepsis and anemia. He was told of leukopenia for many years and reviewing [employer], his white count has ranged from 3 to 4 thousand dating back to 2003 with normal counts in 2005. Since 2006 or 2007, it has declined and more recently since 2012, it has stayed under 5000 consistently. He has developed thrombocytopenia since 2012. Prior to that, platelet counts have been normal. His hemoglobin has always been low; back in 2013 it was in the 13 g/dL range but since 2005 it has gone up and down ranging between been 10 to 11 g/dL and in 2013 it has been below 10 g/dL. He does have a history of excess alcohol consumption for many years and he quit in 2013. Ultrasound of the abdomen in March 2014 revealed enlarged liver, showing diffuse liver disease and splenomegaly with spleen size of 19 cm. Hematology consultation on August 23, 2014 revealed anemia with a hemoglobin of 9.4 g/dL, white count of 2.3, platelets of 103,000. Iron studies showed a ferritin of 8 with iron saturation of 20%. LDH normal. LFTs normal. Vitamin B12 and folate levels normal. Beta-2 microglobulin slightly elevated at 3.05. Serum protein electrophoresis revealed monoclonal protein, which was too small to quantitate. Immunoglobulin levels were normal. Rheumatoid factor less than 15 in the past. Repeat ultrasound of abdomen performed September 11, 2014 showed hepatosplenomegaly similar to previous exam. Dilated portal vein suggestive of portal hypertension. Thickened, edematous gallbladder similar to March 2014 exam. The patient was admitted again in May 2015 with symptoms of painful hematuria. He developed significant anemia with a hemoglobin dropping to 7.7 g/dL for which he received 2 to 3 units of blood transfusion. Interval History Interval history: Patient is here in follow-up. He is doing about the same. He is accompanied by his today. He has been receiving blood transfusions intermittently. He is getting blood drawn once a week at home. He denies any hematochezia, heartburn reflux symptoms. He was recently asked to increase dose of Bumex. He lost over 10 lb and is feeling better. He denies any shortness of breath, orthopnea or PND. He has not seen his cotton farmer or corporate aircraft mechanic in several months. [facility] Medical History: Medical History (Last Reviewed 05/18/24 @ 07:44 by Roberto Carlos Cisneros PA-C) Abscess in epidural space of cervical spine Acute lower gastrointestinal bleeding Anemia Aortic stenosis CAD (coronary artery disease) Chronic fatigue Cognitive impairment COVID-19 vaccine series completed Diabetes type 2, uncontrolled Diabetic nephropathy associated with type 2 diabetes mellitus Diabetic 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 associated with type 2 diabetes mellitus Difficulty walking DMII (diabetes mellitus, type 2) KOEHLER (dyspnea on exertion) Dyslipidemia Esophageal varices without bleeding Fracture of left humerus GERD (gastroesophageal reflux disease) History of prostate cancer HTN (hypertension) Hyperglycemia Hypertension IBS (irritable colon syndrome) Infective endocarditis Iron deficiency anemia 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 On beta kayy at home ANUJA on CPAP Osteomyelitis of cervical spine Polyneuropathy Prostate cancer Spinal stenosis Streptococcal bacteremia Symptomatic anemia Varices of esophagus determined by endoscopy Family History: Family History (Last Reviewed 07/28/24 @ 07:45 by Roberto Carlos Cisneros PA-C) Father CVD (cardiovascular disease) Past heart attack Mother CVD (cardiovascular disease) Brain cancer Heart problem Daughter Breast cancer Sister Breast cancer Son Alive and well Family/Other Myocardial infarction Liver cancer Surgical History: Surgical History (Last Reviewed 07/28/24 @ 07:44 by Roberto Carlos Cisneros PA-C) H/O cataract extraction History of colonoscopy History of heart artery stent History of surgery History of surgery History of transurethral resection of prostate Hx of colonoscopy Hx of endoscopy Hx of esophagogastroduodenoscopy S/P infectious endocarditis Social History: Social History (Last Reviewed 07/28/24 @ 07:45 by Roberto Carlos Cisneros PA-C) Living Situation History: Household Members: Spouse Household Members Other:: Myesha Housing: House Are you a primary rental boats caretaker to a significant other at home: No Do you presently have visiting nurse or other home services: Yes Alcohol History Details: 1. How often do you have a drink containing alcohol?: a. Never Tobacco History: Patient Tobacco Use Status: Never used Tobacco e-Cigarette/Vaping Use: Never Used Second Hand Smoke Exposure: No Substance Use History: Use of substances other than those prescribed or required for medical reasons: No Domestic Abuse History: Have you been hit, kicked, punched, or otherwise hurt by someone within the past year? If so, by whom?: No Do you feel safe in your current relationship?: Yes Advance Directives: Advance Directives Date on File: 08/31/23 Homicidal Assessment: Do you have thoughts of harming others: None Do you have a plan to hurt others: No Plan Do you have the means to hurt others: No Nutrition Assessment: Recently lost weight without trying: No 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 Current occupational status: retired Home Medications and Allergies Home Medications ?Medication ?Instructions ?Recorded ?Confirmed ?Type lactulose 10 gram/15 mL oral 30 ml PO BID 04/14/24 07/27/24 History solution Allergies Allergy/AdvReac Type Severity Reaction Status Date / Time KARL Inhibitors Allergy Severe Angioedema Verified 07/27/24 11:16 dextran 40 [DEXTRAN 40] Allergy Intermediate tachycardia Verified 07/27/24 11:16 latex [LATEX] Allergy Mild BLISTERS Verified 07/27/24 11:16 lisinopril [From Zestril] Allergy Mild Unknown Verified 07/27/24 11:16 Iodinated Contrast Media Allergy Unknown UNKNOWN Verified 07/27/24 11:16 [CONTRAST,IV] Exam Vital signs: Vital Signs Temp 97.7 F 08/02/24 14:39 Pulse 70 08/02/24 14:39 Resp 18 08/02/24 14:39 BP 126/56 L 08/02/24 14:39 Pulse Ox 95 08/02/24 09:47 O2 Del Method Room Air 08/02/24 09:47 Weight 79.5 kg BMI result Body Mass Index 25.9 - Constitutional Present: no acute distress, average body habitus - Routine HEENT Exam Head: Present: normal inspection - Routine Neck Exam Absent: lymphadenopathy - Routine Respiratory Exam Present: CTAB - Routine Cardiovascular Exam Cardiovascular: Present: S1, S2 Data - Labs CBC & Chem 7: 08/02/24 09:40 11/04/23 10:01 Assessment and Plan Patient Active problem list reviewed?: Yes (1) Anemia Status: Chronic Assessment and plan: 1. A 79-year-old male with iron deficiency anemia. He had rectal bleeding secondary to radiation proctitis and cystitis. He is on ferrous sulfate twice a day. Negative for celiac antibodies. He had an allergic reaction to iron dextran. Developed upper GI bleeding related to esophageal varices. He has undergone banding. He has been on IV Ferrlecit intermittently. He is transfusion dependent. 2. Pancytopenia, leukopenia and thrombocytopenia, which has been chronic and stable. He has evidence of hepatosplenomegaly, portal hypertension, which is probably contributing to his cytopenias. MRI abdomen in December 2019 showed chronic cirrhosis, portal venous hypertension and splenomegaly. No evidence of HCC or other liver lesions. He has refused bone marrow biopsy on multiple occasions. 3. Vitamin B12 deficiency, pernicious anemia. He is positive for intrinsic factor antibodies. He is on oral B12 supplementation and adequate blood levels. 3. Renal insufficiency. He is stage 3 kidney disease which could be contributing to his anemia. He has been receiving Procrit intermittently. 4. Recent treatment 2021, for endocarditis as well as hematoma secondary to left humerus fracture which caused acute worsening of his anemia. He has received multiple units of blood transfusion. He is receiving blood transfusion almost on a weekly basis. He has received 53 units of blood so far, his last ferritin was only 22. Follow-up in 3 months. - Time Spent With Patient Time Spent with Patient (in minutes): 20 Additional Coding: - Additional E/M codes Complex E/M visit Add On: CPT G2211
[2024-08-09 09:58] VITALS: BP 101/57; PULSE 64; RESP 18; TEMP 36.3; O2SAT 97
[2024-08-09 10:56] VITALS: BP 101/57; PULSE 64; RESP 18; TEMP 36.3
[2024-08-09 11:12] VITALS: BP 102/50; PULSE 60; RESP 18; TEMP 36.6
[2024-08-09 12:46] VITALS: BP 115/56; PULSE 60; RESP 17; TEMP 36.3
[2024-08-09 13:27] LABS: MANUAL DIFF FLAG NO
[2024-08-09 13:42] LABS: Ammonia 96 umol/L (13-55)
[2024-08-09 14:06] LABS: Basophils Percent Auto 0.9 % (0-2); Eosinophils Absolute Auto 0.2 X10*3/uL (0.0-0.4); Eosinophils Percent Auto 3.4 % (0-4); Hematocrit 26.4 % (42.0-52.0); Hemoglobin 8.5 g/dl (14.0-18.0); Imm Gran Abs Auto 0.01 X10*3/uL (0.00-0.03); Imm Gran Pct Auto 0.2 % (0.0-0.4); Lymphocytes Absolute Auto 0.4 X10*3/uL (1.2-4.9); Lymphocytes Percent Auto 7.9 % (20-40); Mean Corpuscular HGB Conc 32.2 g/dl (31.0-36.0); Mean Corpuscular Hemoglobin 28.1 pg (27.0-33.0); Mean Corpuscular Volume 87.1 fL (80.0-98.0); Mean Platelet Volume 10.7 fL (9.4-12.4); Monocytes Absolute Auto 0.5 X10*3/uL (0.1-1.2); Monocytes Percent Auto 9.9 % (2-11); Neutrophils Absolute Auto 3.6 x10*3/uL (2.0-8.3); Neutrophils Percent Auto 77.7 % (45-73); Platelet Count 109 X10*3/uL (160-400); Red Blood Count 3.03 X10*6/uL (4.60-5.80); Red Cell Distribution Width 17.4 % (11.0-16.0); White Blood Count 4.7 X10*3/uL (4.8-10.8)
[2024-08-09 14:24] LABS: Alanine Aminotransferase 24 U/L (0-40); Albumin Level 2.8 g/dL (3.5-5.0); Alkaline Phosphatase 184 U/L (39-117); Anion Gap 13 (12-20); Aspartate Amino Transferase 35 U/L (5-37); Bilirubin Direct 0.5 mg/dL (0.0-0.5); Blood Urea Nitrogen 54 mg/dL (9-16); Calcium 7.6 mg/dL (8.4-10.2); Carbon Dioxide 25 mmol/L (22-29); Chloride 101 mmol/L (96-108); Creatinine Clr Calc Pharmacy 29.8; Estimated Glomerular Filt Rate 33; Glucose Random 205 mg/dL (60-115); Potassium 4.4 mmol/L (3.3-5.1); Sodium 135 mmol/L (135-145); Total Protein 6.2 g/dL (6.5-8.0)
--- NOTE | 2024-08-09 16:36 | MHC.HEMONC ---
Pt arrived w/ his for scheduled blood transfusion of x1 unit PRBC, after he was drawn at home the previous day, when his Hgb resulted 7.0. Pt had blood drawn today for type + screen, received blood band. Pt signed consent to transfuse w/ Dr. Nielsen. Nurse Adelaida placed 22g PIV to pt's L wrist w/ positive blood return. Nurse transfused x1 unit PRBC, over which time VS remained stable and LS remained CTA. Pt's PIV was flushed and removed. Pt was given d/c packet, next to have home labs drawn in 1 week. Pt was escorted to lobby via w/c. Dr. Nielsen met w/ pt for Hem f/u appt. Also, per Dr. Nielsen, nurse faxed updated order to Grace at phlebotomy, to continue having weekly home draws for CBC w/ diff, but to add a Ferritin level [id number], received fax confirmation, notified Grace by text, who responded in the affirmative.
--- NOTE | 2024-08-15 16:34 | MHC.HEMONC ---
Home lab draw not completed today however patient was seen over weekend in ED on 08/13. Lab appt moved to 08/16, left voicemail for patient to return call to department.
--- NOTE | 2024-08-16 14:54 | MHC.HEMONC ---
pt normally gets home lab draw on mondays however pt was in patient. left vm on jason phone to confirm he is on the list for next wednesday 08/22
--- NOTE | 2024-08-31 13:28 | MHC.HEMONC ---
Labs: Hgb 6.7 Hct 21[address] Nielsen notified. Order for 2 units RBCs. Patient notified. Patient states he can come in at approx 10am tomorrow no earlier. Patient will need a type and screen. Patient may need to return Thursday for second unit of RBCs. Patient aware. Blood bank notified.
--- NOTE | 2024-09-01 08:54 | MHC.HEMONC ---
Pt currently in ED status post fall HGB 5.7-Recieved 2 units RBC's in ED-appointment for blood transfusion cancelled for 09/02/24
--- NOTE | 2024-09-05 12:16 | MHC.HEMONC ---
Weekly labs. Hgb 7.5. Dr. Nielsen aware. 1 unit of RBCS per Dr. Nielsen. Patient added to schedule on 09/06 and will need type and screen. Blood bank notified.
[2024-09-06 11:31] VITALS: BP 113/50; PULSE 64; RESP 18; TEMP 36.2
[2024-09-06 11:41] VITALS: BP 113/50; PULSE 64; RESP 18; TEMP 36.2
[2024-09-06 11:57] VITALS: BP 104/51; PULSE 67; RESP 18; TEMP 36.5
[2024-09-06 13:29] VITALS: BP 134/56; PULSE 65; RESP 18; TEMP 36.6
--- NOTE | 2024-09-06 13:33 | MHC.HEMONC ---
Hgb 7.5- Pt transfused 1 unit rbc. Pt tolerated it well. Lungs clear. Calendar and d/c instructions given. Pt departed via wheelchair with .
--- NOTE | 2024-09-12 16:35 | MHC.HEMONC ---
HGB 8.0 PLT [address] blood transfusion per Dr Nielsen.
--- NOTE | 2024-09-19 14:22 | MHC.HEMONC ---
Pt's CBC was drawn by [facility] [place] today, Hgb resulted 6.4, pt was ordered by Dr. Nielsen to receive transfusion of x2 units PRBC, nurse sched pt for transfusion the following morning, blood bank was notified. Pt to have Type and Screen drawn upon arrival tomorrow morning at 10am. Pt was notified via phone.
[2024-09-20] VITALS (7 sets, daily range): BP systolic 112–133; BP diastolic 53–60; PULSE 65–77; RESP 18–20; TEMP 36.3–36.4; O2SAT 98; BMI 25.9
--- NOTE | 2024-09-20 16:23 | MHC.HEMONC ---
Hgb 6.4- Pt transfused 2 unit rbc. Pt tolerated it well. Lungs clear. declined Calendar and d/c instructions. with patient. Pt wheeled to main entrance by this nurse.
--- NOTE | 2024-09-26 17:21 | MHC.HEMONC ---
Pt had labs drawn at home by line director, Hgb resulted 7.4, Dr. Nielsen was notified, pt ordered to receive x2 units PRBC this week. Nurse booked transfusion appt via phone w/ pt for 09/28 at 10am. Kimberly at blood bank was notified, pt to have type + screen done upon arrival.
--- NOTE | 2024-09-27 16:11 | MHC.HEMONC ---
Nurse was notified by KENDRICK Robertson that pt is currently in ER at [facility], s/p fall, they found he was anemic w/ Hgb of 6.9. Pt was already scheduled for blood transfusion tomorrow morning at 10am, but apparently received blood transfusion at the ER today, pt was aware his transfusion was cancelled for tomorrow morning, pt will continue to have home blood draws on Mondays henceforth. Dr. Nielsen was notified.
--- NOTE | 2024-10-03 16:02 | MHC.HEMONC ---
Pt was scheduled for home lab draw today, but upon investigation, pt was d/c'd from [facility] two days ago as acute xfer to [facility] for IR procedure. Pt is next scheduled for home lab draw the following 10/10/24, this office to monitor results.
--- NOTE | 2024-10-10 10:11 | MHC.HEMONC ---
spoke to pt's . pt is still at [facility] and not sure when coming home treating a big infection and other things
== END 2024-11-10 14:29 | disposition home or self-care (01) ==
LOC: HO.ONC 08:00
PROVIDERS: PCP Physician Assistant; Visit Provider Internal Medicine
DX: D50.9 Iron deficiency anemia, unspecified (principal); N18.30 Chronic kidney disease, stage 3 unspecified; D63.1 Anemia in chronic kidney disease; D51.0 Vitamin B12 deficiency anemia due to intrinsic factor deficiency; D61.818 Other pancytopenia; K76.6 Portal hypertension; K74.60 Unspecified cirrhosis of liver; R16.1 Splenomegaly, not elsewhere classified; Z79.899 Other long term (current) drug therapy
CPT/HCPCS: 36415; 36430; 80048; 80053; 80076; 82140; 82607; 82728; 82947; 83540; 85025; 85027; 85045; 86850; 86900; 86901; 86923; 88184; 88185; 96360; 96372; 99212; 99213; 99214; J0885; P9016; P9040